=== PATIENT | female | born 1995 | race Two or more races ===

== ENCOUNTER 2023-01-14 14:01 | Outpatient (OUT) | payer OTHER, SELFPAY ==
--- NOTE | 2023-01-14 14:06 | US_ITS ---
[address] [address] Patient Name: PRINCESS CANTU MRN: [id number] date: 1995 Sex: F Assigned Patient Location: US Current Patient Location: US Accession/Order Number: [id number] Exam Date: 01/14/2023 14:06 Report Date: 01/14/2023 17:08 At the request of: LISA ZIMMERMAN Procedure: US OB transvaginal EXAMINATION: US OB transvaginal HISTORY: MISSED PERIOD COMPARISON: No relevant comparison available. FINDINGS: Payan intrauterine gestation Gestational sac: 2.68 cm, 7 weeks 3 days CRL: 1.7 cm, 8 weeks 2 days Yolk sac: 4.3 mm Heart rate: 171 BPM The uterus is normal, anteverted, anteflexed The ovaries are normal in appearance Cervix: Closed, 3.5 cm Clinical age: 8 weeks 3 days Clinical RAS: 08/23/2023 Ultrasound age: 8 weeks 2 days Ultrasound RAS: 09/03/2023 IMPRESSION: Viable payan intrauterine gestation measuring 8 weeks 2 days Electronically authenticated by: HAYLIE RIVER Date: 01/14/2023 17:08
== END 2023-01-14 14:02 | disposition home or self-care (01) ==
LOC: US 14:03
PROVIDERS: Visit Provider Obstetrics & Gynecology
DX: O26.91 Pregnancy related conditions, unspecified, first trimester (principal); Z3A.08 8 weeks gestation of pregnancy
CPT/HCPCS: 76817

== ENCOUNTER 2023-01-28 09:15 | Outpatient (OUT) | payer OTHER, SELFPAY ==
[2023-01-28 09:53] LABS: Basophils Percent Auto 0.6 % (0.2-2.0); Eosinophils Absolute Auto 0.2 10^3/uL (0.0-0.7); Eosinophils Percent Auto 2.1 % (0.9-7.0); Hematocrit 38.4 % (36.0-48.0); Hemoglobin 12.8 g/dL (12.0-16.0); Immature Granulocytes Abs Auto 0.02 10^3/uL (0.00-0.03); Immature Granulocytes Pct Auto 0.3 % (0.0-0.5); Lymphocytes Absolute Auto 1.6 10^3/uL (1.2-3.8); Lymphocytes Percent Auto 21.7 % (20.5-60.0); Mean Corpuscular HGB Conc 33.3 g/dL (29.9-35.2); Mean Corpuscular Hemoglobin 30.3 pg (26.7-34.0); Mean Corpuscular Volume 90.8 fL (81.0-99.0); Mean Platelet Volume 9.1 fL (9.5-13.5); Monocytes Absolute Auto 0.4 10^3/uL (0.3-0.8); Monocytes Percent Auto 5.9 % (1.7-12.0); Neutrophils Percent Auto 69.4 % (43.0-75.0); Platelet Count 260 10^3/uL (150-450); Red Blood Count 4.23 10^6/uL (4.20-5.40); Red Cell Distribution Width 12.1 % (11.0-15.0); White Blood Count 7.1 10^3/uL (4.0-11.0)
[2023-01-28 10:58] LABS: Thyroid Stimulating Hormone 2.378 uIU/mL (0.358-3.740)
[2023-01-28 11:43] LABS: Estimated Average Glucose 94 mg/dL; Glycohemoglobin A1C 4.9 % (4.5-6.2)
[2023-01-29 06:10] LABS: HBsAg Screen Negative (Negative); HCV Ab Non Reactive (Non Reactive); HIV Ab/p24 Ag Screen Non Reactive (Non Reactive)
[2023-01-29 12:09] LABS: Rapid Plasma Reagin, Quant Non Reactive (NonRea<1:1); Rubella Antibodies, IgG 0.96 index (Immune >0.99)
== END 2023-01-28 09:16 | disposition home or self-care (01) ==
LOC: LAB 09:17
PROVIDERS: Visit Provider Obstetrics & Gynecology
DX: Z34.81 Encounter for supervision of other normal pregnancy, first trimester (principal); N91.2 Amenorrhea, unspecified
CPT/HCPCS: 36415; 83036; 84443; 85025; 86592; 86706; 86762; 86803; 86850; 86900; 86901; 87086; 87389

== ENCOUNTER 2023-03-10 10:33 | Outpatient (REF) | payer OTHER, SELFPAY ==
[2023-03-15 12:08] LABS: Age Gdln ACOG Testing Note (.); IGP, rfx Aptima HPV ASCU Note (.)
== END 2023-03-10 10:34 | disposition home or self-care (01) ==
LOC: LAB 10:33
PROVIDERS: Visit Provider Obstetrics & Gynecology
DX: Z12.4 Encounter for screening for malignant neoplasm of cervix (principal)
CPT/HCPCS: G0145

== ENCOUNTER 2023-03-23 16:53 | Outpatient (OUT) | payer OTHER, SELFPAY ==
[2023-03-26 16:09] LABS: Gest. Age on Collection Date 18.1 weeks (.); Gestat. Age Based On Ultrasound (.); Insulin Dep Diabetes No (.); Maternal Age At EDD 29.8 yr (.); OSBR Risk 1 IN See interpretation. (.); Results Report (.)
== END 2023-03-23 16:54 | disposition home or self-care (01) ==
PROVIDERS: Visit Provider Obstetrics & Gynecology
DX: Z34.92 Encounter for supervision of normal pregnancy, unspecified, second trimester (principal)
CPT/HCPCS: 36415; 82105

== ENCOUNTER 2023-04-06 19:40 | Outpatient (OUT) | payer OTHER, SELFPAY ==
--- NOTE | 2023-04-06 19:54 | US_ITS ---
[address] [address] Patient Name: PRINCESS CANTU MRN: [id number] date: 1995 Sex: F Assigned Patient Location: US Current Patient Location: Accession/Order Number: [id number] Exam Date: 04/06/2023 20:36 Report Date: 04/07/2023 15:19 At the request of: LISA ZIMMERMAN Procedure: US OB anatomy EXAMINATION: US OB anatomy HISTORY: SECOND TRIMESTER Z34.92 COMPARISON: No relevant comparison available. TECHNIQUE: Transabdominal sonographic examination was performed for obstetrical and evaluation. FINDINGS: Number: 1 Heart Rate: 147.5 bpm H.B. /min Amniotic Fluid Volume: Subjectively normal Placental Location: Posterior fundal; lower margin 6.4 cm from os. Cervix Length: 3.2 cm, closed. ANATOMY: Normal Structures -cerebellum, cisterna magna, lateral cerebral ventricles, orbits, midline falx, hard palate, four-chamber heart,, stomach, bladder, umbilical cord insertion into abdomen, three-vessel cord, right upper extremity, left upper extremity, right lower extremity, left lower extremity. SUBOPTIMALLY SEEN: Cardiac outflow tracts, kidneys, spine ABNORMALITIES: Choroid plexus cysts, 7 mm. BIOMETRY: BPD: 4.6 cm 19 weeks 5 days HC: 17.6 cm 20 weeks 1 days AC: 15.2 cm 20 weeks 3 days FL: 3.1 cm 19 weeks 5 days EFW:332.9 grams; 44% FL/AC: 20.6 FL/BPD: 68.8 HC/AC: 1.2 GESTATIONAL AGE: Age by EDC: 20 weeks 1 days RAS by EDC: 08/23/2023 Age by current US: 20 weeks 0 days RAS by current US: 08/24/2023 US/US OB anatomy IMPRESSION: 1. Single live intrauterine with growth detailed above. 2. Examination is slightly limited due to position. 3. Suboptimal visualization of the cardiac outflow tracts, kidneys, and spine. 4. Cord plexus cysts, 7 mm. Follow-up recommended. Electronically authenticated by: AMERICA DRAPER Date: 04/07/2023 15:19
--- NOTE | 2023-04-06 19:55 | US_ITS ---
[address] [address] Patient Name: PRINCESS CANTU MRN: [id number] date: 1995 Sex: F Assigned Patient Location: US Current Patient Location: US Accession/Order Number: [id number] Exam Date: 04/06/2023 20:36 Report Date: 04/07/2023 15:20 At the request of: LISA ZIMMERMAN Procedure: US OB transvaginal EXAMINATION: US OB transvaginal HISTORY: SECOND TRIMESTER Z34.92 COMPARISON: Ultrasound OB anatomy 04/06/2023 US/US OB transvaginal IMPRESSION: Please see ultrasound OB anatomy 04/06/2023 report. Electronically authenticated by: AMERICA DRAPER Date: 04/07/2023 15:20
== END 2023-04-06 19:41 | disposition home or self-care (01) ==
PROVIDERS: Visit Provider Obstetrics & Gynecology
DX: Z34.92 Encounter for supervision of normal pregnancy, unspecified, second trimester (principal)
CPT/HCPCS: 76805; 76817

== ENCOUNTER 2023-05-03 18:46 | Outpatient (OUT) | payer OTHER, SELFPAY ==
--- NOTE | 2023-05-03 | US_ITS ---
[address] [address] Patient Name: PRINCESS CANTU MRN: [id number] date: 1995 Sex: F Assigned Patient Location: US Current Patient Location: Accession/Order Number: [id number] Exam Date: 05/03/2023 19:00 Report Date: 05/04/2023 07:10 At the request of: LISA ZIMMERMAN Procedure: US OB follow up EXAMINATION: US OB follow up HISTORY: ENCOUNTER FOR FOLLOW UP ANATOMY Z 36.2 COMPARISON: 04/06/2023 FINDINGS: Heart Rate: 149.2 bpm Amniotic Fluid Volume: Subjectively normal Number: 1.0 Position: Breech presentation, head transverse maternal right Normal anatomy: RVOT, LVOT, kidneys Abnormal anatomy: 6.2 x 5.5 mm choroid plexus cyst Nonvisualization: spine secondary to positioning GESTATIONAL AGE: Age by EDC: 24 weeks 0 days RAS by EDC: 08/23/2023 US/US OB follow up IMPRESSION: 6.2 mm choroid plexus cyst Electronically authenticated by: HAYLIE RIVER Date: 05/04/2023 07:10
== END 2023-05-03 18:47 | disposition home or self-care (01) ==
PROVIDERS: Visit Provider Obstetrics & Gynecology
DX: Z36.2 Encounter for other antenatal screening follow-up (principal); O35.03X0 Maternal care for (suspected) central nervous system malformation or damage in fetus, choroid plexus cysts, not applicable or unspecified; Z3A.24 24 weeks gestation of pregnancy
CPT/HCPCS: 76816

== ENCOUNTER 2023-05-17 17:37 | Observation (INO) | payer OTHER, SELFPAY ==
[2023-05-17 18:04] VITALS: BP 143/74; PULSE 76
[2023-05-17 19:21] LABS: Bilirubin Urine NEGATIVE (NEGATIVE); Blood Urine NEGATIVE (NEGATIVE); Clarity Urine CLEAR (CLEAR); Color Urine YELLOW (YELLOW); Glucose Urine UA NEGATIVE (NEGATIVE); Ketones Urine NEGATIVE (NEGATIVE); Leukocyte Esterase Urine NEGATIVE (NEGATIVE); Nitrite Urine NEGATIVE (NEGATIVE); Protein Urine TRACE mg/dL (NEG/TRACE); Specific Gravity Urine >=1.030 (1.005-1.025)
[2023-05-17 19:32] LABS: Urine Microscopic Indicated NO
== END 2023-05-17 18:52 | disposition home or self-care (01) ==
PROVIDERS: Admitting Provider Obstetrics & Gynecology; Visit Provider Obstetrics & Gynecology
DX: O26.892 Other specified pregnancy related conditions, second trimester (principal); R10.31 Right lower quadrant pain; Z3A.26 26 weeks gestation of pregnancy
CPT/HCPCS: 59025; 81003; G0378; G0379

== ENCOUNTER 2023-05-22 08:25 | Outpatient (OUT) | payer OTHER, SELFPAY ==
[2023-05-22 09:37] LABS: Basophils Percent Auto 0.3 % (0.2-2.0); Eosinophils Absolute Auto 0.1 10^3/uL (0.0-0.7); Eosinophils Percent Auto 1.2 % (0.9-7.0); Hematocrit 33.2 % (36.0-48.0); Hemoglobin 10.7 g/dL (12.0-16.0); Immature Granulocytes Abs Auto 0.05 10^3/uL (0.00-0.03); Immature Granulocytes Pct Auto 0.6 % (0.0-0.5); Lymphocytes Absolute Auto 1.3 10^3/uL (1.2-3.8); Lymphocytes Percent Auto 14.9 % (20.5-60.0); Mean Corpuscular HGB Conc 32.2 g/dL (29.9-35.2); Mean Corpuscular Hemoglobin 30.2 pg (26.7-34.0); Mean Corpuscular Volume 93.8 fL (81.0-99.0); Mean Platelet Volume 9.2 fL (9.5-13.5); Monocytes Absolute Auto 0.6 10^3/uL (0.3-0.8); Monocytes Percent Auto 6.5 % (1.7-12.0); Neutrophils Absolute Auto 6.9 10^3/uL (1.4-6.5); Neutrophils Percent Auto 76.5 % (43.0-75.0); Platelet Count 250 10^3/uL (150-450); Red Blood Count 3.54 10^6/uL (4.20-5.40); Red Cell Distribution Width 12.6 % (11.0-15.0)
[2023-05-22 10:01] LABS: Glucose 1 Hour 94 mg/dL
== END 2023-05-22 08:26 | disposition home or self-care (01) ==
LOC: LAB 08:28
PROVIDERS: Visit Provider Obstetrics & Gynecology
DX: Z34.92 Encounter for supervision of normal pregnancy, unspecified, second trimester (principal)
CPT/HCPCS: 36415; 82950; 85025

== ENCOUNTER 2023-05-24 17:41 | Outpatient (OUT) | payer OTHER, SELFPAY ==
--- NOTE | 2023-05-24 | US_ITS ---
[address] [address] Patient Name: PRINCESS CANTU MRN: [id number] date: 1995 Sex: F Assigned Patient Location: US Current Patient Location: Accession/Order Number: [id number] Exam Date: 05/24/2023 18:20 Report Date: 05/25/2023 16:53 At the request of: LISA ZIMMERMAN Procedure: US OB follow up EXAMINATION: US OB follow up HISTORY: Encounter for follow up of anatomy, Z36.2 COMPARISON: No relevant comparison available. FINDINGS: position: Cephalic presentation, longitudinal lie Heart rate: 140 bpm Other: Stable 6 mm choroid plexus cyst. Normal appearance of the spine US/US OB follow up IMPRESSION: Stable 6 mm choroid plexus cyst Electronically authenticated by: HAYLIE RIVER Date: 05/25/2023 16:53
== END 2023-05-24 17:42 | disposition home or self-care (01) ==
LOC: US 17:41
PROVIDERS: Visit Provider Obstetrics & Gynecology
DX: Z36.2 Encounter for other antenatal screening follow-up (principal); O35.03X1 Maternal care for (suspected) central nervous system malformation or damage in fetus, choroid plexus cysts, fetus 1
CPT/HCPCS: 76816

== ENCOUNTER 2023-06-17 08:02 | Outpatient (OUT) | payer OTHER, SELFPAY ==
--- NOTE | 2023-06-17 08:05 | US_ITS ---
[address] [address] Patient Name: PRINCESS CANTU MRN: [id number] date: 1995 Sex: F Assigned Patient Location: US Current Patient Location: US Accession/Order Number: [id number] Exam Date: 06/17/2023 08:05 Report Date: 06/17/2023 15:10 At the request of: LISA ZIMMERMAN Procedure: US OB growth EXAMINATION: US OB growth HISTORY: LGA, FOLLOW UP CHOROID PLEXUS CYST COMPARISON: Ultrasound OB anatomy 04/06/2023 FINDINGS: Heart Rate: 153.0 bpm Number: 1.0 Position: BREECH Amniotic Fluid Volume: 16.7 cm Maximum Vertical Pocket: 4.7 cm BIOMETRY: BPD: 7.3 cm cm; 29 weeks 1 days; 9% HC: 28.4 cmcm; 31 weeks 1 days ; 33% AC: 26.2 cm cm; 30 weeks 2 days; 43% FL: 5.8 cm cm; 30 weeks 2 days; 33% EFW: 1551.7 grams; 34% FL/AC: 22.1 FL/BPD: 79.8 HC/AC: 1.1 GESTATIONAL AGE: Age by EDC: 30 weeks 3 days RAS by EDC: 08/23/2023 Age by US: 30 weeks 2 days RAS by US: 08/24/2023 US/US OB growth IMPRESSION: 1. Single live intrauterine with growth detailed above. Electronically authenticated by: AMERICA DRAPER Date: 06/17/2023 15:10
== END 2023-06-17 08:03 | disposition home or self-care (01) ==
LOC: US 08:02
PROVIDERS: Visit Provider Obstetrics & Gynecology
DX: O36.63X0 Maternal care for excessive fetal growth, third trimester, not applicable or unspecified (principal); Q07.8 Other specified congenital malformations of nervous system; Z3A.30 30 weeks gestation of pregnancy
CPT/HCPCS: 76816

== ENCOUNTER 2023-07-10 14:18 | Outpatient (OUT) | payer OTHER, SELFPAY ==
--- OUTSIDE RECORDS SUMMARY | 2023-07-10 14:21 | XMS_ITS | CCD ---
Author Name Unknown Address [address] [place] [address] Organization [facility] Care Team Providers Care Plush Weaver Name Role Phone Uriarte, Koffi A Unavailable Unavailabl e Uriarte, Koffi A Unavailable Unavailabl e Uriarte, Koffi A Unavailable Unavailabl e ZAC ANDERSON Primary Care Unavailable TU CURRAN Attending Unavailab le Uriarte, Koffi Unavailable Unavailable Doe Andrade Unavailable Unavailable Theo Smith Unavailable Unavailab le Uriarte, Koffi A Unavailable Unavailabl e Uriarte, Koffi Primary Care Provider SPIKE GARCIA Referring Unavailable URIARTE, KOFFI Primary Care Unavailable SPIKE GARCIA Referring Unavailable URIARTE, KOFFI Primary Care Unavailable Theo Smith Unavailable Unavailable Opaskar, Nedra Unavailable Unavailable Uriarte, Koffi A Unavailable UnavailTheo Pickett Unavailable Unavailable Zac Anderson Primary Care Provider [phone] Uriarte, Koffi A Unavailable Unavailable Unavailable Unavailable Unavailable Unavailable Unavailable Koffi Uriarte MD Primary Care Provider Unavailable Unavailable Koffi Uriarte MD Primary Care Provider Milagro Son Primary Care Physician Unavail able Dane Hassan Attending Unavailable Dane Hassan Admitting Unavailable BRENDAN BLANKENSHIP Attending Unavailable URIARTE, KOFFI A Primary Care Unavailabl GEORGIA Mckinley Attending Unavailable URIARTE, KOFFI A Primary Care Unavailabl e KAVITA SWEET Referring Unavailable CHAPITO, KOFFI Rosas Primary Care Unavailabl e BRENDAN BLANKENSHIP Attending Unavailable CHAPITO, KOFFI Rosas Primary Care Unavailabl e Unavailable Unavailable ELSIE ., DR GNOZALEZ Admitting Unavailable ELSIE ., DR GONZALEZ Attending Unavailable ELSIE ., DR GONZALEZ Consulting Unavailable ELSIE ., DR GONZALEZ Admitting Unavailable ELSIE ., DR GONZALEZ Attending Unavailable [place], DR HAYLIE Garcia Consulting Unavailable ELSIE ., DR GONZALEZ Consulting Talon Uriarte, Dr. Koffi Rosas Primary Care Dario Uriarte, Dr. Koffi Rosas Attending Dario Uriarte, Dr. Koffi Rosas Referring Koffi Oquendo MD Primary Care Provider Koffi Uriarte MD Unavailable NEDRA CALDERON Attending Unavailable KOFFI URIARTE Primary [facility] UnavailSHIMA Earl Attending Unavailable SHIMA RODAS Attending SHIMA Orantes Attending Unavailable Allergies Allergy Classification Reported Allergen(s) Allergy Type Date of Onset Reaction(s) Facility (1 source) No Known Medication Allergies; Translations: [No Known Medication Allergies] Propensity to adverse reactions (disorder) [facility] Repository Medications Current Medications Medication Drug Class(es) Dates Sig (Normalized) Sig (Original) {21 (Ethinyl Estradiol 0.02 MG / Levonorgestrel 0.1 MG Oral Tablet) / 7 (Inert Ingredients 1 MG Oral Tablet) } Pack [Orsythia 28 Day] (9 sources) Progestin, Estrogen, Progestin-containin g Intrauterine Device Start: 06-05-2019 Orsythia 100 mcg-20 mcg oral tablet 1 tab(s), Oral, Daily, 3 EA, Refill(s) 3, [id number] Start Date: 06/05/19 Status: Ordered Start: 10-12-2015 take 1 tablet by jolie th once daily Orsythia 0.1-20 MG-MCG Oral Tablet TAKE 1 TABLET DAILY. Quantity: 1 Refills: 3 Koffi Uriarte MD Start : 12-Oct-2015 Active 28 Tablet Pack take 0.1-20 tablets by mouth once levonorgestrel-ethinyl estradiol (LUTERA) 0.1-20 MG-MCG per tablet Take 1 tablet by mouth daily. 0 Active levothyroxine sodium 0.025 mg oral tablet (1 source) l-Thyroxine Start: 12-07-2022 End: 04-30-2023 take 1 tablet by mouth once daily before mealtime levothyroxine (Synthroid, Levoxyl) 25 mcg tablet Take 1 tablet (25 mcg) by mouth once daily in the morning. Take before meals. 0 12/07/2022 04/30/2023 Discontinued (Therapy completed) lisinopril 10 mg oral tablet (19 sources) Angiotensin Converting Enzyme Inhibitor Start: 03-09-2023 End: 04-30-2023 take 1 tablet by mouth once daily lisinopril 10 mg tablet Indications: Primary hypertension TAKE 1 TABLET BY MOUTH EVERY DAY 30 tablet 6 03/09/2023 04/30/2023 Discontinued (Entered in Error) Start: 10-14-2020 take 1 tablet by jolie once daily Lisinopril 10 MG Oral Tablet TAKE 1 TABLET DAILY. Quantity: 90 Refills: 3 Ordered: 02-Jan-2022 Koffi Uriarte MD Start : 14-Oct-2020 Active Start: 10-14-2020 lisinopril (ZE STRIL, PRINIVIL) 10 mg tablet Take by mouth q 24 HR. 0 10/14/2020 Active Comment on above: Take by mouth q 24 H R. 24 hr metFORMIN hydrochloride 500 mg extended release oral tablet (1 source) Biguanide Start: 11-17-19 End: 04-30-20 take 1 tablet by mouth once daily at mealtime metFORMIN XR 500 mg 24 hr tablet Take 1 tablet (500 mg) by mouth once daily in the evening. Take with meals. 0 11/16/2022 04/30/2023 Discontinued (Therapy completed) naproxen 500 mg oral tablet (1 source) Nonsteroidal Anti-inflammatory Drug Start: 06-05-20 take 1 tablet by mouth twice daily Naprosyn 500 mg Tab 500 mg = 1 tab(s), Oral, BID, # 120 tab(s), Refills(s) 0, Pharmacy: [id number] Start Date: 06/05/19 Status: Ordered ondansetron 4 mg oral tablet (1 source) Serotonin-3 Receptor Antagonist Start: 07-26-20 23 take 2 tablets by mouth twice daily as needed for nausea ondansetron (Zofran) 4 mg tablet Take 2 tablets (8 mg) by mouth 2 times a day as needed for nausea. 0 02/10/2023 Active sodium chloride flush 0.9 % injection 3 mL (1 source) Start: 04-18-20 20 sodium chloride flush 0.9 % injection 3 mL Completed/Discontinued Medications Medication Drug Class(es) Dates Sig (Normalized) Sig (Original) busPIRone hydrochloride 10 mg oral tablet (3 sources) Start: 05-28-2020 take 1 tablet by mouth three times daily as needed busPIRone HCl - 10 MG Oral Tablet TAKE 1 TABLET 3 times daily PRN Quantity: 60 Refills: 1 Koffi Uriarte MD Start : 28-May-2020 Active gadoteridol (PROHANCE) injection 15 mL (1 source) Start: 05-09-2020 End: 05-09-2020 gadoteridol (PROHANCE) injection 15 mL lamoTRIgine 100 mg oral tablet (20 sources) Mood Stabilizer, Anti-epileptic Agent Start: 08-14-2020 take 1 tablet by mouth twice daily lamoTRIgine 100 MG Oral Tablet TAKE 1 TABLET BY MOUTH TWICE DAILY. Quantity: 180 Refills: 3 Ordered: 24-Dec-2021 Nedra Calderon MD Start : 14-Aug-2020 Active lamoTRIgine (NGUYEN ICTAL) 25 mg tablet melatonin 10 mg oral tablet (8 sources) Start: 04-25-2020 take 1 tablet by mouth at bedtime Melatonin 10 MG Oral Tablet TAKE 1 TABLET Bedtime Quantity: 30 Refills: 3 Ordered: 25-Apr-2020 Doe Andrade DO Start : 25-Apr-2020 Active Patient requesting compounded melatonin metroNIDAZOLE 500 mg oral tablet (10 sources) Nitroimidazole Antimicrobial Start: 09-09-2021 End: 02-03-2022 take 1 tablet by mouth twice daily metroNIDAZOLE (FLAGYL) 500 mg tablet Indications: Acute vaginitis Take 1 tablet by mouth twice daily. for vaginosis. Do not drink alcohol while taking this medication 14 tablet 0 02/03/2022 Active Start: 05-20-2021 metroNIDAZOLE 0.75 % Vaginal Gel INSERT 1 APPLICATORFUL INTRAVAGINALLY AT BEDTIME NIGHTLY. Quantity: 1 Refills: 0 Ordered: 20-May-2021 Koffi Uriarte MD Start : 20-May-2021 Active Start: 06-09-2019 End: 06-14-2019 MetroGel-Vaginal 0.75% gel w ith applicator 1 bruce, Vaginal, BID, 70 gram, Refill(s) [id number] Start Date: 06/09/19 Stop Date: 06/14/19 Status: Ordered Comment on above: Take 1 tablet by jolie twice daily. for vaginosis. Do not drink alcohol while taking this medication Orsythia 0.1-20 MG-MCG Oral Tablet (3 sources) Start: 10-12-2015 take 1 tablet by mouth once daily Orsythia 0.1-20 MG-MCG Oral Tablet TAKE 1 TABLET DAILY. Quantity: 1 Refills: 3 Ordered: 25-May-2019 Koffi Uriarte MD Start : 12-Oct-2015 Active sertraline 50 mg oral tablet (4 sources) Serotonin Reuptake Inhibitor Start: 05-28-2020 take 1 tablet by mouth once daily Sertraline HCl - 50 MG Oral Tablet TAKE 1 TABLET DAILY. 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] Onset: 10-02-2022 10-02-2022 Chronic Anxiety disorders (20 sources) Anxiety; Translations: [Anxiety state, unspecified] Onset: 10-02-2022 10-02-2022 Chronic Contraceptive and procreative management (7 sources) Contraception ; Translations: [Encounter for surveillance of contraceptives, unspecified] Onset: 07-02-2015 07-02-2015 Episodic Epilepsy; convulsions (1 source) Idiopathic generalized epilepsy; Translations: [Nonintractable generalized idiopathic epilepsy without status epilepticus (HCC)] Chronic Epilepsy; convulsions (20 sources) Seizure; Translations: [Other convulsions] Onset: 10-02-2022 04-30-2023 Episodic Comment on above: seeing Dr. Calderon. lamotrigine; Essential hypertension (17 sources) Benign essential hypertension; Translations: [Benign essential hypertension] Onset: 10-02-2022 10-02-2022 Chronic Hemorrhage during ; abruptio placenta; placenta previa (2 sources) Antepartum hemorrhage; Translations: [Hemorrhage in early , unspecified] Onset: 04-16-2022 Episodic Immunizations and screening for infectious disease (2 sources) Encounter for screening for infections with a predominantly sexual mode of transmission; Translations: [Screening examination for sexually transmitted disease] Onset: 07-04-2021 Episodic Other ear and sense organ disorders (20 sources) Conductive hearing loss, bilateral; Translations: [Conductive hearing loss, bilateral] Onset: 10-02-2022 10-02-2022 Chronic Other nutritional; endocrine; and metabolic disorders (7 sources) Obesity; Translations: [Obesity, unspecified] Onset: 03-28-2023 03-28-2023 Chronic Other nutritional; endocrine; and metabolic disorders (3 sources) Obese class I; Translations: [Obesity, unspecified] Onset: 07-04-2021 07-04-2021 Chronic Other upper respiratory disease (20 sources) Allergic rhinitis; Translations: [Allergic rhinitis, cause unspecified] Onset: 10-02-2022 10-02-2022 Chronic Other upper respiratory infections (20 sources) Chronic sinusitis; Translations: [Chronic pansinusitis] Onset: 10-02-2022 10-02-2022 Chronic Otitis media and related conditions (5 sources) Chronic otitis media; Translations: [Bilateral chronic otitis media] Chronic Unclassified (1 source) Unknown / UNK(Unknown) Onset: 05-04-2017 Unclassified (3 sources) APPOINTMENT CANCELLED Onset: 08-09-2017 08-09-2017 Past or Other Problems Problem Classification Problem Date Documented Da te Episodic/Chronic Bacterial infection; unspecified site (1 source) Chlamydial infection, unspecified; Translations: [Chlamydial infection] Onset: 07-04-2021 Episodic Inflammatory diseases of female pelvic organs (16 sources) Bacterial vaginosis; Translations: [Vaginitis and vulvovaginitis, unspecified] Onset: 07-04-2021 Episodic Nonspecific chest pain (20 sources) Chest pain; Translations: [Chest pain, unspecified] Onset: 10-02-2022 10-02-2022 Episodic Nutritional deficiencies (20 sources) Cobalamin deficiency; Translations: [Other B-complex deficiencies] Onset: 10-02-2022 10-02-2022 Episodic Other circulatory disease (20 sources) Feeling of lump in throat; Translations: [Gastrointestinal malfunction arising from mental factors] Onset: 10-02-2022 10-02-2022 Episodic Other circulatory disease (20 sources) Elevated blood-pressure reading without diagnosis of hypertension; Translations: [Elevated blood pressure reading without diagnosis of hypertension] Onset: 10-02-2022 10-02-2022 Episodic Other female genital disorders (14 sources) Vaginal discharge; Translations: [Leukorrhea, not specified as infective] Onset: 10-02-2022 10-02-2022 Episodic Other nutritional; endocrine; and metabolic disorders (17 sources) Abnormal weight gain; Translations: [Abnormal weight gain] Onset: 10-02-2022 10-02-2022 Episodic Other skin disorders (20 sources) Loss of hair; Translations: [Alopecia, unspecified] Onset: 10-02-2022 10-02-2022 Episodic Otitis media and related conditions (17 sources) Chronic otitis media; Translations: [Unspecified otitis media] Onset: 10-02-2022 10-02-2022 Episodic Residual codes; unclassified (20 sources) Insomnia; Translations: [Insomnia, unspecified] Onset: 10-02-2022 10-02-2022 Episodic Unclassified (1 source) R07.9 28296/8 Onset: 05-04-2017 Unclassified (5 sources) Patient encounter status; Translations: [Encounter for audiology evaluation] NEGATED: Highlighted row has not occurred!Residual codes; unclassified (17 sources) Disease Episodic Results Test Name Value Interpretation Reference Range Facility DHEA SERUMon 11-20-2022 Dehydroepiandrosterone (DHEA) 656 ng/dL Normal 31-701 [facility] Comment on above: Performed By: #### D LAMAR. #### [facility] [address] [place] [address] Dr. Vish Brown ANTI-MULLERIAN HORMONEon Anti-Mullerian Hormone (AMH) 4.47 ng/mL Normal [facility] Comment on above: Result Comment: For assays employing antibodies, the possibility exists for interference by heterophile antibodies in the samples.1 1.Favio Campos Interferences in Immunoassays - still a threat. Clin. Chem. 2000; 46: 5740-5538. This test was developed and its performance characteristics determined by [employer]. It has not been cleared or approved by the Food and Drug Administration. Reference Range: Females 26 - 30y: 1.03 - 11.10 Median 4.20 AMH concentrations of >= 1.06 ng/mL is correlated with a better response to ovarian stimulation, produced more retrievable oocytes and higher odds of live according to Gabi et al. Fertility and Sterility. 2010: 94:7176-2963. The current AMH test method correlates with the study method with a slope of 0.94. Females at risk of ovarian hyperstimulation syndrome or polycystic ovarian syndrome (PCOS) may exhibit elevated serum AMH concentrations. AMH levels from PCOS patients may be 2 to 5 fold higher than age-appropriate reference interval values. Granulosa cell tumors of the ovary may secrete AMH along with other tumor markers. Elevated AMH is not specific for malignancy, and the assay should not be used exclusively to diagnose or exclude an AMH-secreting ovarian tumor. Performed By: #### L BRUNA #### [facility] [address] [place] [address] Dr. Vish Brown DHEA-SULFATEon 11-17-2022 DHEA-Sulfate 449.0 ug/dL Critically high 84.8-378.0 [facility] Comment on above: Performed By: #### L [facility] #### [facility] [address] [place] [address] Dr. Vish Brown ESTRADIOLon 11-17-2022 Estradiol 34.3 pg/mL Normal [facility] Comment on above: Result Comment: Adul t Female: Follicular phase 12.5 - 166.0 Ovulation phase 85.8 - 498.0 Luteal phase 43.8 - 211.0 Postmenopausal <6.0 - 54.7 1st trimester 215.0 - >4300.0 Ele ECLIA methodology Performed By: #### E CHLOE #### [facility] [address] [place] [address] Dr. Vish Brown FSHon 11-17-2022 FSH 6.1 mIU/mL Normal [facility] Comment on above: Result Comment: Adul t Female: Follicular phase 3.5 - 12.5 Ovulation phase 4.7 - 21.5 Luteal phase 1.7 - 7.7 Postmenopausal 25.8 - 134.8 Performed By: #### L [facility] #### [facility] [address] [place] [address] Dr. Vish Brown LUTEINIZING HORMONE (LH)on 0 11-17-2022 LH 4.5 mIU/mL Normal [facility] Comment on above: Result Comment: Adul t Female: Follicular phase 2.4 - 12.6 Ovulation phase 14.0 - 95.6 Luteal phase 1.0 - 11.4 Postmenopausal 7.7 - 58.5 Performed By: #### L BCL #### [facility] [address] [place] [address] Dr. Vish Brown PROGESTERONEon 11-17-2022 Progesterone 0.8 ng/mL Normal [facility] Comment on above: Result Comment: Foll icular phase 0.1 - 0.9 Luteal phase 1.8 - 23.9 Ovulation phase 0.1 - 12.0 First trimester 11.0 - 44.3 Second trimester 25.4 - 83.3 Third trimester 58.7 - 214.0 Postmenopausal 0.0 - 0.1 Performed By: #### P TASNEEM #### [facility] [address] [place] [address] Dr. Vish Brown CBC AUTO DIFFon 11-16-2022 BASO # 0.0 103/ul Normal 0.0-0.1 [facility] Comment on above: Performed By: #### L BCL #### [facility] [address] [place] [address] Dr. Vish Brown Basophils/100 WBC (Bld) 0.5 % Normal 0.2-2.0 [facility] Comment on above: Performed By: #### L BCLH #### [facility] [address] [place] [address] Dr. Vish Brown EO # 0.3 103/ul Normal 0.0-0.7 [facility] Comment on above: Performed By: #### L BCLH #### [facility] [address] [place] [address] Dr. Vish Brown Eosinophils/100 WBC (Bld) 4.0 % Normal 0.9-7.0 [facility] Comment on above: Performed By: #### L BCL #### [facility] [address] [place] [address] Dr. Vish Brown Erythrocyte distribution width (RBC) [Ratio] 12.0 % Normal 11.0-15.0 [facility] Comment on above: Performed By: #### L BCLH #### [facility] [address] [place] [address] Dr. Vish Brown Hematocrit (Bld) [Volume fraction] 39.1 % Normal 36.0-48.0 [facility] Comment on above: Performed By: #### L BCL #### [facility] [address] [place] [address] Dr. Vish Brown Hemoglobin (Bld) [Mass/Vol] 13.0 g/dL Normal 12.0-16.0 [facility] Comment on above: Performed By: #### L BCL #### [facility] [address] [place] [address] Dr. Vish Brown IG # 0.02 10e3/ul Normal 0.00-0.03 [facility] Comment on above: Performed By: #### L BCL #### [facility] [address] [place] [address] Dr. Vish Brown IG % 0.3 % Normal 0.0-0.5 [facility] Comment on above: Performed By: #### L BCLH #### [facility] [address] [place] [address] Dr. Vish Brown LYMPH # 2.5 103/ul Normal 1.2-3.8 [facility] Comment on above: Performed By: #### L BCLH #### [facility] [address] [place] [address] Dr. Vish Brown Lymphocytes/100 WBC (Bld) 32.4 % Normal 20.5-60.0 [facility] Comment on above: Performed By: #### L BCLH #### [facility] [address] [place] [address] Dr. Vish Brown MANUAL DIFF REQ NO Normal [facility] Comment on above: Performed By: #### L BCL #### [facility] [address] [place] [address] Dr. Vish Brown MCH (RBC) [Entitic mass] 29.9 pg Normal 26.7-34.0 [facility] Comment on above: Performed By: #### L BCLH #### [facility] [address] [place] [address] Dr. Vish Brown MCHC (RBC) [Mass/Vol] 33.2 g/dL Normal 29.9-35.2 [facility] Comment on above: Performed By: #### L BRUNAH #### [facility] [address] [place] [address] Dr. Vish Brown MCV (RBC) [Entitic vol] 89.9 fL Normal 81.0-99.0 [facility] Comment on above: Performed By: #### L BCL #### [facility] [address] [place] [address] Dr. Vish Brown MONO # 0.6 103/ul Normal 0.3-0.8 [facility] Comment on above: Performed By: #### L BCL #### [facility] [address] [place] [address] Dr. Vish Brown Monocytes/100 WBC (Bld) 7.4 % Normal 1.7-12.0 [facility] Comment on above: Performed By: #### L BCL #### [facility] [address] [place] [address] Dr. Vish Brown NEUT # 4.3 103/ul Normal 1.4-6.5 [facility] Comment on above: Performed By: #### L BCLH #### [facility] [address] [place] [address] Dr. Vish Brown Neutrophils/100 WBC (Bld) 55.4 % Normal 43.0-75.0 [facility] Comment on above: Performed By: #### L BCLH #### [facility] [address] [place] [address] Dr. Vish Brown Platelet mean volume (Bld) [Entitic vol] 9.0 fL Critically low 9.5-13.5 [facility] Comment on above: Performed By: #### L BCLH #### [facility] [address] [place] [address] Dr. Vish Brown PLT 277 103/ul Normal 150-450 [facility] Comment on above: Performed By: #### L BCLH #### [facility] [address] [place] [address] Dr. Vish Brown RBC 4.35 106/ul Normal 4.20-5.40 [facility] Comment on above: Performed By: #### L BCLH #### [facility] [address] [place] [address] Dr. Vish Brown WBC 7.7 103/ul Normal 4.0-11.0 [facility] Comment on above: Performed By: #### L BCLH #### [facility] [address] [place] [address] Dr. Vish Brown FREE T4on 11-16-2022 Free T4 [Mass/Vol] 1.08 ng/dL Normal 0.76-1.46 [facility] Comment on above: Performed By: #### F T4 #### [facility] [address] [place] [address] Dr. Vish Brown GLYCOHEMOGLOBIN A1Con 2022 ADA RECOMMENDATION SEE BELOW Normal [facility] Comment on above: Result Comment: ADA RECOMMENDED LIMIT 4.0 - 6.0 ADA THERAPEUTIC TARGET < 7.0 ACTION SUGGESTED > 7.0 Performed By: #### A 1C #### [facility] [address] [place] [address] Dr. Vish Brown Glucose [Mass/Vol] 94 mg/dL Normal [facility] Comment on above: Performed By: #### A 1C #### [facility] [address] [place] [address] Dr. Vish Brown HbA1c (Bld) [Mass fraction] 4.9 % Normal 4.5-6.2 [facility] Comment on above: Performed By: #### A 1C #### [facility] [address] [address] [address] Vish Brown PREG QUANT HCGon 11-16-2022 HCG QUANT <1 Normal [facility] Comment on above: Performed By: #### P REGQNT, TSH #### [facility] [address] [place] [address] Dr. Vish Brown HCG RANGE SEE BELOW Normal [facility] Comment on above: Result Comment: 5-50 0.2-1 WEEK 50-500 1-2 WEEKS 100-5,000 2-3 WEEKS 500-10,000 3-4 WEEKS 1,000-50,000 4-5 WEEKS 10,000-100,000 5-6 WEEKS 15,000-200,000 6-8 WEEKS 10,000-100,000 2-3 MONTHS Performed By: #### P REGQNT, TSH #### [facility] [address] [place] [address] Dr. Vish Brown TSHon 11-16-2022 TSH 2.030 uIU/mL Normal 0.358-3.740 [facility] Comment on above: Performed By: #### P REGQNT, TSH #### [facility] [address] [place] [address] Dr. Vish Brown HM 19-49 Yearson 07-31-2022 HM 19-49 Years Diagnoses/Problems Health Maintenance/Risks Encounter for preventive health examination (V70.0) (Z00.00) Assessed Benign essential hypertension (401.1) (I10) stable. Continue current meds Orders Benign essential hypertension Complete Blood Count; Status:Active; Requested for:31Jul2022; Perform:Lab Services - Lab To Draw (Blood Test); Due:29Oct2022;Ordered; For:Benign essential hypertension; Ordered By:Koffi Uirarte; Comprehensive Metabolic Panel; Status:Active; Requested for:31Jul2022; Perform:Lab Services - Lab To Draw (Blood Test); Due:29Oct2022;Ordered; For:Benign essential hypertension; Ordered By:Koffi Uriarte; Lipid Panel; Status:Active; Requested for:31Jul2022; Perform:Lab Services - Lab To Draw (Blood Test); Due:29Oct2022;Ordered; For:Benign essential hypertension; Ordered By:Koffi Uriaret; Provider Impressions follow up appt in 1 year or as needed in the interim Chief Complaint Annual Physical Examination Adult Risk ScreeningThere are no spiritual/cultural practices/values/needs that are important to know Initial Fall Risk Screening: PRINCESS has not fallen in the last 6 months. Her fall did not result in injury. PRINCESS does not have a fear of falling. She does not need assistance with sitting, standing or walking. Does not need assistance walking in her home. She does not need assistance in an unfamiliar setting. The patient is not using an assistive device. Living Will. Living Will: No living will on file. Patient Declined. Healthcare POA: No healthcare proxy on file. Patient Declined. Declaration of Mental Health Treatment: No mental health treatment on file. Patient Declined. Tobacco Screening: PRINCESS does not use tobacco. Has not used tobacco in the past 6 months. Has not tried to quit or thought about quitting tobacco. Domestic Violence Screen: Does not feel threatened or abused physically, emotionally or sexually. Do you feel UNSAFE? The patient feels safe in the home. Depression/Suicide Screening: During the past 2 weeks, the patient has not felt down, depressed or hopeless. During the past 2 weeks, the patient has not felt little interest or pleasure in doing things. She does not have a risk of suicide. She has not had thoughts of harming others. Single alcohol screening question: Patient Declined/Screening not indicated. Audit Screening Tool: 1. How often do you have a drink containing alcohol? 2-4 times a month Single substance abuse screening question: Patient Declined/Screening not indicated. Procedure or Sedation Areas: patient has not had alcohol, recreational drugs, or prescription drugs for non-medical reasons this morning. Nutrition Screening: In the past month, there was not a day when I or anyone in my family went hungry because there was not enough food. Patient Education: The patient or the person with them need(s) extra help because of problems with: seeing The patient is comfortable filling out medical forms. History of Present Illness The last health maintenance visit was 1 year(s) ago. there are no concerns today. The patient's health since the last visit is described as good. There are no interval changes in the patient's PMH, PSH, and current medications. There are no interval changes in the patient's social and family history. She does not have regular dental visits. She complains of vision problems. Vision care includes wearing reading glasses. She denies hearing loss. Immunizations status: up to date. Lifestyle: She consumes a diverse and healthy diet. She does not exercise regularly. She does not use tobacco. She consumes alcohol. She reports occasional alcohol use. Reproductive health: the patient is premenopausal. she reports normal menses. History: 0. Cervical cancer screening: cancer screening reviewed and current . patient has no history of an abnormal pap smear. Active Problems Problems Abnormal weight gain (783.1) (R63.5) Allergic rhinitis (477.9) (J30.9) Anxiety (300.00) (F41.9) Bacterial vaginosis (616.10,041.9) (N76.0,B96.89) Benign essential hypertension (401.1) (I10) Bilateral chronic otitis media (382.9) (H66.93) Chest pain (786.50) (R07.9) Chronic pansinusitis (473.8) (J32.4) Chronic sinusitis (473.9) (J32.9) Class 1 obesity with body mass index (BMI) of 32.0 to 32.9 in adult (278.00,V85.32) (E66.9,Z68.32) Conductive hearing loss, bilateral (389.06) (H90.0) Elevated BP without diagnosis of hypertension (796.2) (R03.0) Encounter for audiology evaluation (V72.19) (Z01.10) Globus sensation (784.99) (R09.89) Hair loss (704.00) (L65.9) Insomnia (780.52) (G47.00) Seizure (780.39) (R56.9) Tonsil stone (474.8) (J35.8) Vaginal discharge (623.5) (N89.8) Vitamin B12 deficiency (266.2) (E53.8) Surgical History Problems No history of surgery Family History Mother No pertinent family history Social History Problems Never smoker No illicit drug use Occasional alcohol (more content not included)... Normal [employer] Tobacco Screening.on 023 Adult depression screening assessment No [facility] [employer] Work Phone: Fall risk assessment a) No falls within the last year [facility] [employer] Work Phone: Tobacco use status CPHS b) No M [facility] [employer] Work Phone: B-HCG SerPl-aCncon HCG.beta subunit Qn m[IU]/mL Normal <5.0 [facility] Comment on above: Order Comment: Speci men Type: BLOOD SPECIMENOrdering Facility: [facility] Address: [address] [place], [place] [id number] Result Comment: Soledad kyle Performed By: #### G CCT #### [place] [address] BACTERIAL VAGINOSIS AMPLIFIC ATIONon 04-16-2022 Lactobacillus crispatus+gasseri+jense james + Gardnerella vaginalis + Atopobium vaginae rRNA HUMERA+probe Ql (Vag fld) Negative Normal Negative for bacterial vaginosis [facility] Comment on above: Order Comment: Speci men Type: SWAB [facility] Address: [address] [place] [address] Performed By: #### C VTV, BVAMP #### [facility] CLIA [id number] [address] [place] [address] OF ONI C. trachomatis+N. gonorrhoea e DNA HUMERA+probe Ql (Unsp spec)on 04-16-2022 C. trachomatis DNA HUMERA+probe Ql (Unsp spec) Negative Normal Negative for Chlamydia trachomatis by amplificaton [facility] Comment on above: Order Comment: Speci men Type: SWAB [facility] Address: [address] [place] [address] Performed By: #### C VTV, BVAMP #### [facility] CLIA [id number] [address] [place] [address] OF ONI N. gonorrhoeae DNA HUMERA+probe Ql (Unsp spec) Negative Normal Negative for Neisseria gonorrhoeae by amplification [facility] Comment on above: Order Comment: Speci men Type: SWAB [facility] Address: [address] [place], [place] [id number] Performed By: #### C VTV, BVAMP #### [facility] CLIA [id number] [address] [place] [address] [place] MITCH / TRICHOMONAS AMPLIF ICATIONon 04-16-2022 MITCH / TRICHOMONAS AMPLIFICATION MITCH SPECIES GROUP RNA: Negative for Mitch species MITCH GLABRATA RNA: Negative for Mitch glabrata TRICH VAG AMPLIFICATION RNA: Negative for Trichomonas vaginalis by amplification Normal [facility] Comment on above: Performed By: #### C VTV, BVAMP #### [facility] CLIA [id number] [address] [place] [address] [place] CNCOon 04-16-2022 CNCO Letter Text Letter Text Normal [facility] CNOVon 04-16-2022 CNOV Office Visit ([facility] ) PRINCESS CANTU ([id number]) 1995 F Date Time Provider Department 04/16/22 8:00 AM BRENDAN BLANKENSHIP [facility] During your visit today, we recorded the following information about you: Pulse Blood pressure Weight Height 77/minute 134/84 91.9 kg 1.727 m Last Period 03/19/22 Brendna Blankenship PA-C 04/16/2022 8:18 AM Signed Princess Rosas Alondra is a 26 year old year old female. Patient presents for vaginal discharge with slight odor and irritation x a few weeks. Intermittent. Denies any itching at this time. +New partner x 3 months, did not use condoms. Requests full STI screen. LMP 03/19/22. Smoker? No Last Pap? 07/02/20, NIL History of abnormal Paps? ASCUS in 2014 Patient's last menstrual period was 03/19/2022 (approximate). FAMILY HISTORY Problem Relation Age of Onset Heart Maternal Grandmother arrhythmia Cancer Maternal Grandfather lung Asthma Father Breast Cancer Paternal Grandmother None Mother Diabetes Mother Maternal nephew/ insulin dependent Ovarian cancer No Family History Uterine Cancer No Family History OB History T0 L0 SAB0 IAB0 Ectopic0 Multiple0 Live Births0 Comment: Menarche 10 PAST MEDICAL HISTORY Diagnosis Date ASCUS of cervix with negative high risk HPV 07/02/2015 Chlamydia 04/15/2021 Seizure (HCC) 2019 PAST SURGICAL HISTORY Procedure Laterality Date NONE Current Outpatient Medications Medication Sig metroNIDAZOLE (FLAGYL) 500 mg tablet Take 1 tablet by mouth twice daily. for vaginosis. Do not drink alcohol while taking this medication lamoTRIgine (LAMICTAL) 25 mg tablet lisinopril (ZESTRIL, PRINIVIL) 10 mg tablet Take by mouth q 24 HR. No current facility-administered medications for this visit. 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 I, Brendan Blankenship, have reviewed this information as documented for accuracy and performed all elements of history taking, and edited the record as necessary. 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 NEURO: Awake, alert and oriented A/P: 26 year old y/o F here for vaginitis. 1. Vaginitis - Benign on exam 2. Screening examination for sexually transmitted disease - Accepts vaginal and serum screening - MITCH / TRICHOMONAS AMPLIFICATION - BACTERIAL VAGINOSIS AMPLIFICATION - GC/CHLAMYDIA DNA DET - SYPHILIS TOTAL W/REFLEX; Future - HIV 1 2 COMBO(AG/AB),WITH REFLEX TO DIFFERENTIATION; Future - HEP C AB IA W/CONF SCRN; Future - HEP B SURF AG SCRN; Future Brendan Blankenship PA-C Medical Decision Making: Problems: Low: Acute, uncomplicated illness or injury Data: Unique test(s) ordered: 3+ Risk: Low: Low risk from testing/treatment Medical Decision Making Level: 3 - Low Referring Provider: NO PCP [956] Allergies As of Date: 04/16/2022 (No Known Allergies) Date Reviewed: 04/16/2022 Reviewed by: Brendan Blankenship PA-C - Fully Assessed Reason for Visit: Vaginal Discharge [4161] Cmt: With slight odor Primary Visit Diagnosis:Acute vaginitis [N76.0] Other Visit Diagnosis:Screening examination for sexually transmitted disease [Z11.3] Order(s):MITCH / TRICHOMONAS AMPLIFICATION [SQCVTV] Order #: [id number]. #:[id number] BACTERIAL VAGINOSIS AMPLIFICATION [SQBVAMP] Order #: [id number]. #:[id number] GC/CHLAMYDIA DNA DET [SQGCCAMP] Order #: [id number]. #:[id number] SYPHILIS TOTAL W/REFLEX [SQSYPHTX] Order #: [id number] FUTURE HIV 1 2 COMBO(AG/AB),WITH REFLEX TO DIFFERENTIATION [SQHIV12] Order #: [id number] FUTURE HEP C AB IA W/CONF SCRN [XWVJJC2T] Order #: [id number] FUTURE HEP B SURF AG SCRN [SQHBSAG] Order #: [id number] FUTURE Prescriptions as of 04/16/2022 - lamoTRIgine (LAMICTAL) 25 mg tablet - lisinopril (ZESTRIL, PRINIVIL) 10 mg tablet Take by mouth q 24 HR. Problem List As Of Date 04/16/2022 Noted Resolved Contraceptive use [Z30.40] 07/02/2015 NO SHOW 08/09/2017 08/09/2017 APPOINTMENT CANCELLED 08/09/2017 Obesity, Class I, BMI 30-34.9 [E66.9] 07/04/2021 Medications Discontinued During This Encounter Prescriptions - metroNIDAZOLE (FLAGYL) 500 mg tablet (Discontinued) Take 1 tablet by mouth twice daily. for vaginosis. Do not drink alcohol while taking this medication Encounter Status:Closed by BRENDAN BLANKENSHIP on 04/16/22 Normal [facility] HBV surface Ab IA Ql (S)on 0 04-16-2022 HBV surface Ag Ql (S) Negative Normal Negative [facility] Comment on above: Order Comment: Speci men Type: BLOOD SPECIMENOrdering Facility: [facility] Address: [address] [place], [place] [address] Performed By: #### G CCT #### [place] [phone] HCV Ab Ser Qlon 04-16-2022 HCV Ab Ql (S) Negative Normal Negative [facility] Comment on above: Order Comment: Speci men Type: BLOOD SPECIMEN [facility] Address: [address] [place] [address] Result Comment: The result suggests no evidence of active infection with Hepatitis C virus. Should recent infection be suspected, repeat testing may be considered 4-6 weeks after this draw. Performed By: #### 1 [id number] #### [facility] CLIA [id number] [address] [place] [address] [place] HIV 1+2 Ab IA Qlon 2 HIV 1 and 2 Ab IA.rapid Nom Normal [facility] Comment on above: Order Comment: Speci men Type: BLOOD SPECIMENOrdering Facility: [facility] Address: [address] [place] [address] Result Comment: Test not indicated. Performed By: #### G CCT #### [place] [phone] HIV 1+2 Ab+HIV1 p24 Ag IA Ql Non-Reactive Normal Nonreactive [facility] Comment on above: Order Comment: Speci men Type: BLOOD SPECIMENOrdering Facility: [facility] Address: [address] [place], [place] [address] Performed By: #### G CCT #### [place] [phone] HIVINT Normal [facility] Comment on above: Order Comment: Speci men Type: BLOOD SPECIMENOrdering Facility: [facility] Address: [address] [place] [address] Result Comment: No e vidence of HIV-1 or HIV-2 infection. Should recent infection be suspected, repeat testing may be considered 2-3 weeks after this draw. [place] Rev. Code 3701.243(E): This information has been disclosed to you from confidential records protected from disclosure by state law. ???You shall make no further disclosure of this information without the specific, written, and informed release of the individual to whom it pertains or as otherwise permitted by state law. A general authorization for the release of medical or other information is not sufficient for the purpose of the release of HIV test results or diagnoses. Performed By: #### G CCT #### [facility] [employer] [address] [place] [phone] Reagin and Treponema pallidu m IgG and IgM [Interp]on 04-16-2022 SYPHILIS INTERPRETATION Cannot exclude r ecent Treponemal infection if specimen collected within 7-10 days after appearance of suspect lesions or 2-3 weeks after an exposure. Clinical correlation is required. Normal [facility] Comment on above: Order Comment: Speci men Type: BLOOD SPECIMENOrdering Facility: [facility] Address: [address] [place] [address] Performed By: #### G CCT #### [place] [phone] T. pallidum IgG+IgM IA Ql (S) Non-Reactive Normal Nonreactive [facility] Comment on above: Order Comment: Speci men Type: BLOOD SPECIMENOrdering Facility: [facility] Address: [address] [place] [address] Performed By: #### G CCT #### [place] [phone] Coding Summary.on 03-27-2022 Coding Summary. [id number] Gh 0bWw+PGhlYWQ+AM2ETRSnP 85xpNQokA0BE3sOUN9XCDG QFTRFGT1BYX1lbFQ0GSqcG 2VybiAv NrjgwASfKF39YEf0WTH1sB hbQPzqjS8zhMGkI1t7VrHg JL86cK64ZLoqISArMrA9Wq ZpbjsgbWFy D0dhXdSkcSFeRmm+PHRhYm xlIHdpZHRoPScxMDAlJyBz ySfcFR5uTq4jKEJtKCJzoE xhcHNlOiBj u8dtLXJuLCbjDL4ufBxbG6 SawIW2BPYch2a6Rq65hFB+ VSOpGBM4tYcxDZyjs843Yx Aps9bkLRO3 kDCjKWkeOHZ1V05os8M4KG CxFSUvQKH3yRX9hA7sbPpe awxlJ9DwjFOnGqN9UCO9uT QikF1lnFsg blxrpN6uUnf+U30WJV2YXE NNAU1YVmw8A5ZbCejycVA+ PD96ARPeDH21kIZreVGud7 kydOj7MtMh OOGyDMX4oOggDYwio9DyNV WzJ41tpCDjj9U4ZBWswTep sGAfBpJisKY5hA9bXWqzpw bbn9pwxury Snzof8zmco18oC79D66zMH siOGJaJLK9PRPaMQJcpXcz ke6knG9pOj8+ZFpyy3rqj3 xwrFl6TjBu VUHqhzTdmBpdPML9w7OhFl 22Y9UvfFpgb3GrSwr5zv08 sGWhj6B0tDD6PHfsQRGaoM 9oRVhzMhA6 YNAnOoTojJ59fJIlLKukXh 3gqEyhtGjyRF9eCCPsetmb CXItpS4nMDOjpBDtcOcbYN 4wNTBpbjtm v698ErZhRRV6SVIruPBcH3 SfhI7gXbMzXTMvZOJkC5Ma kERlBNtvH665ZDvaKwS0QD WvjwXjI9Ta SCPxiFjiMfM1x3R8Zk3Lr2 CylwznANK3RSzbQIT1HgS5 XhNvDvW5I8ExFgp4URIdzP rtPL7sH2Zs NTXmvhocmlqkqEP2GNZcTF PjkA86hRWuYYnyUe6re5B1 k433YEPlRHEjxN13Nr2qpV ogMTBwdCBU yO0gcrnsd9wywlafCdQlNM FyGGv8OQs0QVEmcTqwMxYg TPI3NzD5PRQ3lZRzyV6htJ utzvtdaB5w Oyc+O81ceG2uIHN9KQG0kj ctIHJkqrPdHH70XX06H7Rm PjwvdGFibGU+PGRpdiBzdH urZM7mHlUu d6yba8AnXPvsY9SyHWMeVU xfOce9RCJxHQH3cJG2qG3r JLBrPIxey6G1nZO0J3Weho Wtts9pz1lv WGOiPUloP49haLStc3F8ZB TlbKI9LDYoqMceMyRinA66 Oyc+GVQynQkkv9McRnucw4 ild0ftnMb6 CiOmWJRuvqAqyZfiUAG7f1 UkPt88W37kZXgfAFSaOSPr EDWfMPUztVytwc8lhM4xTs 8+PGNvbCB3 wGE4dL2rLMFaAfC3DKhpS1 64XeRzqWQeBnlpx2orf6jf sQu9YdIyPKNsbpAxvIyuGY E1y2KrPa30 W05nXJflMGBbTVMiAPKbIO DixOtupf7feG1gHi8+PC9j i7wktj15oO31bWF+PHRkIH M8eKmnGZls CDLgnV0aBRwgIoT7OCBeVl HbjB91tAPqYYutIt1ubScu aSlvSN4eBNBevtohk303Nu Fdb4uyVXAb hWPbMYusSVI2X94gy1X1YR WbWLDlGWQ2aOH7hM3qfUnn bjogbGVmdDsgdmVydGljYW xlXFncZ722 IHRvcDsnPlBhdGllbnQgTm GqWLp9N1WfYnf7KMLdcAhm DR3ewFDqINtlEn9ynDteeA jmRH7uWLXj vaqcl602IxNfw7guFEIcvV DbWIyeUOA7L09fg5O3XWNe JNRwOQB6vWY8oR3nyVsfvt ogbGVmdDsg dtZgjIdiWQdgKHjhD179ZQ RvcDsnPkJpcnRoIERhdGU6 QN22ZA13xTWgx1O7lIE9D1 BhZGRpbmct peoonXG7AHWqXBAgzW92Sn 2doAiyMd7tHTNuPWC7XTCl yQWeN0QpbM2oMoRwFECbML HzI7QafBYg KJpxV286IYmaQxO7MYTiaw UyP3WxKUYyfSnhEsG1i9H0 Wm9OV1G7VK20VA53gZLka3 G1hBM7F8Ah AKToviertntfeDT0NSPgJF AgnI97Pe0pdUlzXt9vYLBg EXY3KJYxjAHtM0RmkH2jDr AjMDAwMDAw V4IsyGCuDAkqW691CCxmCa U9IJDdxkLiL4LrJQDbiAub RgQ8h6B4Gi8ZPPj8FB18YL 15oNOdc1E7 vCH6E6EdDSMhdwgogzakyV U7CPYxSJVyvN06Bq1meWqy Af9cUQNiAGG4VUOflJDyY7 JaxF1aXwGj CYRoDXNuV5ZccVMtEVamV7 80BUvaFpN5WFJzycSlP1Ze MUJbnMrcWtI7f2V1Ac0RIY NpNC37QJC1 nTH3PH87PK97H4CjGzqwvN FibGU+PHRhYmxlIHdpZHRo EWcwAAVtKmCukTusVT4nLw 9yZGVyLWNv iMcxjZUcRdJey5pvJGTkTW bnSX4pjGifI1LzsMV5JVAw l5d4Or36P54yK8GskSA+PG OpzWM5hMV3 sE4gSiBuGuF9DDkjW489Xx GvaCDxEfppv4nsp2mypEo7 LyU7SJRjelEaeLgjZPW3e2 PfVq20E60t IHdpZHRoPSIxNSUiIHZhbG yijq5xxC1yGw8+PGNvbCB3 cUB1rZ9cVmEpMcH0ZNbbT7 49InRvcCIv Nshrs9ohu1gzhVc3NpHkJX VtidPgtRbaONU1f2IvZa14 V1OatAaxc9NqJnv3pi76xK Bch2Q0zGI5 Y5LaHNKzgzmpvRKwqLdsCN 0cVTUotiuiJISscW9lNFMv O9c5UzApOaT0CZolP0Mswy G1KIGluRLi IDkcFCP9V88rm8E0ZVYoXJ CdYOA0fKW3tE5tiBmxpvgr bGVmdDsgdmVydGljYWwtYW zxW040RYGm bVanRPRkqB7sKWLbjPFyiK bfSM6eFNOdsuhmEcJQC3cv GI0XX1TVJVP7I7FpDbr5AB ZohBquXI9n fISzTIpkRp6ixOattPdfBJ 7xHLHxhdanVQFstV0rKAKl nNGsbWziZO1tSCQccavto5 04VjBmKQR4 NVRgyNTdQ6SkuH5zXqVxKM HfEZQoF0IgbBUmMXflQ192 LVtxXaW6IOXfulSqT5JpAH FsaWduOiB0 u9M4Nb6wBa5vWr7eNQf0RH 83ST02xSAbd3D7kFS5N9Nc KMGspxdkhomdtCX9ZNFvWR BtnK71mELm SKzlCb2nv3N0r287VGOnWC CweK05Oe0wzOhiFNWtoNEK zU6vpxghq9itxtgmQsStBG AxVUk9LJk4 PFXtdYbvSwJlKOH6HtF6UR O7eYEvtK4vjJuppufspF1f Oyc+OstsDXTsjkX8H0HuIy u9ZGNvrMzs VK6vgYZqYJkkDu2fjYxeaF ylTC1zLRKrgcddIWQnxZ0b MCGeuBGuyKspDK9tNXFizo xxb877OmNx VYO3GDZxqZWnX8EzgY4xQq FoNSSpCPKpK2BqmKIsNIwr G181SPgaXwZ7GEPdhkKmX8 FsLWFsaWdu QfM8x5C0Ip3TJF6amGN6Y4 LaYsy7MTVtuYhjQK9kyOJs RHluDl5laLdrpHauRY1lUD BpbjtwYWRk uY6cCGTzvUPbmOazKN9jOB Lcngbcl050QkHuGAY3EUUb oEKpL8KlkW1zHdAuYSPwWU EiC2PefLNt AChpE443NMlbUeM5BWBeyh IiJ4VmWOXgeWjkLpM3d2Q0 Kg9LyIBqACLcUR60SM04DR 04K1EiIqhe dGFibGU+PHRhYmxlIHdpZH LgXUzfAWWpCmPuzExdTH2n Pa6iFUWcIDEmfVkzqWEqWo Qlz0gbTEZz SOhrSG9hqUrzV0ArhFI1WM Csy3m8Ht27I51eY0NdwDL+ UMRiuZI0cWN4zH5jUzHyKy R1IFomD321 LgLkaJVyBglaw5fhc0ojlD p5ZxNnUOMsbsZnkAqdJPA6 h1OnOr94I86mGOinUBTmNU IyMCUiIHZh sNuplt2gtB5aEw7+PGNvbC L6nLU2aK5sQsInVxS1DCog B301QhVaxFScRilkB05vK8 JvdXA+PHRy Nvl9ORPecUtxGU8wvQJhGD zwUe0nCBJ0EpNeYcAzMSmh B9FxQITteisnmfkrcSC0UQ LiNQKpxF72 Ji5idYaiKk0xYFLqKFR7NJ EkdPJvC5RfdX2sTzYeQZEo ANKrA8HbwDFiOLeaH270XF lbBbY1VBFy yeDjS5MwRMBmvSizCdY8t5 W5Oa6RzCmxpNClRM0pTfTj QMm0O4KcBqj4PZDneAjqQH 0ncGFkZGlu Ko1dqIjelVqpWT0gSNJkon qvw622PsLkt7nuQVAxxXIs DDtlMPP7G54fq3P7DNEkHK NsFTY1cST1 sA4gySwazjjjlAEkiJfgyd ArpKaqSOeqPMasR950QGNa nMdpHwWSMjd6M4DiTlk7CZ ClbUhnPC9j iJGxICuvJp2snQznpEnlSS 0tZLZudjqwc048NxXgk4wr TAViaQNaGVffXBW8E55oz0 F4VLKjCYLn XKQ7rLR9bJ9osZaiktyqiL VmdDsgdmVydGljYWwtYWxp Y718FVGxjBcnJd9PVdr1G8 GaTze7OKBw lTxyGY7vvRSoGBrrBl4xsC vvxElbZM9pIQYqlyxbl020 JyBfg7utDEWilYPxRJnkAA B6W54yj1L8 EREtXYPoOES1fYN8mI2epA lnbjogbGVmdDsgdmVydGlj NYucLEllT947ZJTaePbdQj BheWVyOjwv dGQ+FV65es64K8QpMqdiRy r0PMTjWHO3yIG7eB2oPBIc MAsbc4A3wRW1A7WhwtZzts 3mu6bfHHBf ZTog (more content not included)... Normal [facility] BhCG Quanton 03-24-2022 HCG.beta subunit Qn 1 m[IU]/mL Normal 1-3 Fishe mckenzie [facility] Comment on above: Result Comment: GEST ATIONAL AGE HCG RANGE (mIU/mL) NON- <1-3 0.2-1 WEEKS 5-50 1-2 WEEKS 50-500 2-3 WEEKS 100-5,000 3-4 WEEKS 500-10,000 4-5 WEEKS 1,000-50,000 5-6 WEEKS 10,000-100,000 6-8 WEEKS 15,000-200,000 8-12 WEEKS 10,000-100,000 Performed By: #### 2 [id number] #### [facility] [address] [place] [address] CHEMISTRYOrdered By: SYSTEM SYSTEM on 03-24-2022 HCG.beta subunit Qn 1 m[IU]/mL Normal 1 - 3 mIU/mL FTM C Remisol CNPNon 03-24-2022 [facility] Telephone ([facility]) PRINCESS CANTU ([id number]) 1995 F Date Time Provider Department 03/24/22 KAVITA SWEET [facility] During your visit today, we recorded the following information about you: Vee Garner, JANNET 03/24/2022 9:34 AM Signed calling today. LMP 02/11/22. Pt took HPT 03/19 d/t period being late. Pt got 3 positive tests. Scheduled New ob visit for 04/27. Pt states she started having light bleeding that has persisted for the last 4 days. Reports HPT today is negative. Pt asking about the possibility of false positives. Advised will route message to provider. Pended HCG quant. Please advise if pt to keep appt 04/27 or wait to see results of HCG and move appt sooner. Kavita Sweet, DO 03/24/2022 11:40 AM Signed please call patient back could have been a chemical will have nurse contact once blood work reviewed home test reliable if desiring OV for concerns please schedule other OV, cancel OCT new OB thanks Mary Onofre RN 03/24/2022 11:55 AM Signed VM left w req for RCTO Allergies As of Date: 03/24/2022 (No Known Allergies) Date Reviewed: 09/09/2021 Reviewed by: Brendan Blankenship PA-C - Fully Assessed Reason for Visit: Bleeding With [58046] Primary Visit Diagnosis:Bleeding in early [O20.9] Order(s):HCG QUANTITATIVE [SQHCGQT] Order #: [id number] FUTURE Prescriptions as of 03/24/2022 - metroNIDAZOLE (FLAGYL) 500 mg tablet Take 1 tablet by mouth twice daily. for vaginosis. Do not drink alcohol while taking this medication - lamoTRIgine (LAMICTAL) 25 mg tablet - lisinopril (ZESTRIL, PRINIVIL) 10 mg tablet Take by mouth q 24 HR. Problem List As Of Date 03/24/2022 Noted Resolved Contraceptive use [Z30.40] 07/02/2015 NO SHOW 08/09/2017 08/09/2017 APPOINTMENT CANCELLED 08/09/2017 Obesity, Class I, BMI 30-34.9 [E66.9] 07/04/2021 Encounter Status:Closed by BRENDAN SOUZA on 03/24/22 Normal [facility] Consent for Treatmenton Consent for Treatment [id number] 0CD:127 [facility] Physician Orderon 03-24-2022 Physician Order [id number] 0CD:127 [facility] CNPNon 03-19-2022 CNPN Telephone ([facility]) ALONDRAANNABELN Alison ([id number]) 1995 F Date Time Provider Department 03/19/22 [place] DWYER [facility] During your visit today, we recorded the following information about you: Mary Onofre RN 03/19/2022 8:52 AM Signed LMP 02/11, +hpt. Assisted w initial OBV. Advised to take vitamin w folic acid. First trimester precautions provided. handbook sent in . Allergies As of Date: 03/19/2022 (No Known Allergies) Date Reviewed: 09/09/2021 Reviewed by: Brendan Blankenship PA-C - Fully Assessed Reason for Visit: Appointment [[id number]] Prescriptions as of 03/19/2022 - metroNIDAZOLE (FLAGYL) 500 mg tablet Take 1 tablet by mouth twice daily. for vaginosis. Do not drink alcohol while taking this medication - lamoTRIgine (LAMICTAL) 25 mg tablet - lisinopril (ZESTRIL, PRINIVIL) 10 mg tablet Take by mouth q 24 HR. Problem List As Of Date 03/19/2022 Noted Resolved Contraceptive use [Z30.40] 07/02/2015 NO SHOW 08/09/2017 08/09/2017 APPOINTMENT CANCELLED 08/09/2017 Obesity, Class I, BMI 30-34.9 [E66.9] 07/04/2021 Encounter Status:Closed by MARY ONOFRE on 03/19/22 Normal [facility] Office Visit (Neuro-General) on 12-24-2021 Follow-up visit Provider Impressions 1. Seizure: Stable. Last episode was 08/2020. Currently on lamotrigine 100mg BID. Continue annual CBC, CMP per PCP. Not on OCPs, but discussed considerations. Will repeat lamotrigine level now. Patient aware to notify office MARTHA should she become . Follow-up in 1 year Diagnoses/Problems Assessed Seizure (780.39) (R56.9) Orders PMH: New onset seizure Renew: lamoTRIgine 100 MG Oral Tablet; TAKE 1 TABLET BY MOUTH TWICE DAILY Seizure Lamotrigine Level, Serum; Status:Active; Requested for:24Dec2021; Chief Complaint seizures Neurologic Evaluation. Follow up for seizures. History of Present Illness PRINCESS CANTU is a 26 year old female who presents to clinic for follow-up of seizures. She was last seen 06/25/2021. Her last seizure was 08/2020. She has had no further seizures or events of time lapse or memory loss. She is on lamotrigine 100mg BID. She is tolerating this well with no side effects. To review, on April 18, 2020 she was sleeping, around 10:30pm. Her boyfriend was with her and call 911. He described her choking, stiffening all over, eyes rolled back, but no tongue trauma or bowel/bladder incontinence. She was taken to [facility] in [place]. She had lab work and a CT scan, was told this was normal. She was referred to a Neurologist. She had an EEG and an MRI. She was prescribed a seizure medication but did not want to start taking it. She was referred to a Neurologist for a second opinion. She then had another seizure, also occurred while she was sleeping this time occurred in the morning. Her boyfriend noticed that she was choking, she was stiff all over and her eyes rolled back. She had associated lateral tongue trauma. She had no bowel/bladder incontinence. She then woke up and was confused, disoriented and this persisted until she was in the hospital, at least 30 minutes. She does not recall anything from this episode until she was in the hospital. She had an episode in August 21, 2020 where she had a lapse in time while sitting in her car, was tired afterword, no tongue trauma or bowel/bladder incontinence. Chart was reviewed and summarized above (Subjective). Past medical, surgical, family and social history was reviewed and updated in the chart. Chart was reviewed and pertinent medical history was summarized above. Active Problems Problems Abnormal weight gain (783.1) (R63.5) Allergic rhinitis (477.9) (J30.9) Anxiety (300.00) (F41.9) Bacterial vaginosis (616.10,041.9) (N76.0,B96.89) Benign essential hypertension (401.1) (I10) Bilateral chronic otitis media (382.9) (H66.93) Chest pain (786.50) (R07.9) Chronic pansinusitis (473.8) (J32.4) Chronic sinusitis (473.9) (J32.9) Class 1 obesity with body mass index (BMI) of 32.0 to 32.9 in adult (278.00,V85.32) (E66.9,Z68.32) Conductive hearing loss, bilateral (389.06) (H90.0) Elevated BP without diagnosis of hypertension (796.2) (R03.0) Encounter for audiology evaluation (V72.19) (Z01.10) Globus sensation (784.99) (R09.89) Hair loss (704.00) (L65.9) Insomnia (780.52) (G47.00) Seizure (780.39) (R56.9) Tonsil stone (474.8) (J35.8) Vaginal discharge (623.5) (N89.8) Vitamin B12 deficiency (266.2) (E53.8) Surgical History Problems No history of surgery Family History Mother No pertinent family history Social History Problems Never smoker No illicit drug use Occasional alcohol use Allergies Medication No Known Drug Allergies Recorded By: Petrona Medeiros; 01/08/2016 3:47:26 PM Current Meds Medication NameInstruction lamoTRIgine 100 MG Oral TabletTAKE 1 TABLET BY MOUTH TWICE DAILY. Lisinopril 10 MG Oral TabletTAKE 1 TABLET DAILY. Vitals Vital Signs Recorded: 24Dec2021 11:32AM Xeynyikwygc40.1 F Heart Rate54 Wnigceqm157 Mtqyzulwr37 Height5 ft 9 in Oegmko192 lb 1.6 oz BMI Dredwwcjxj09.03 kg/m2 BSA Calculated2.11 Tobacco Useb) No Fall Screeninga) No falls within the last year O2 Plsnytutyx413, RA Physical Exam Constitutional: General appearance: no acute distress Mental status: The patient was in no distress, alert, interactive and cooperative. Affect is appropriate. Cranial nerves III, IV, and : Pupils round, equally reactive to light; no ptosis. EOMs intact. No nystagmus. Cranial nerve VII: Normal and symmetric facial strength. Motor: Muscle strength was 5/5 throughout. Gait: Gait is normal without spasticity, ataxia or bradykinesia. Stance is stable with a negative Romberg. Results/Data Neuroimaging was personally reviewed and is as documented in the HPI/assessment and plan. Signatures Electronically signed by : Nedra Calderon MD; Dec 24 2021 11:37AM EST (Author) Normal [employer] Tobacco Screening.on 022 Fall risk assessment a) No falls within the last year MP-Neurolog y-Wood SJW DO Work Phone: Tobacco use status CP b) No M P-Neurolog y-Wood SJW DO Work Phone: Office Visit (Primary Care T xt/Forms)on 11-17-2021 Follow-up visit Diagnoses/Problems Assessed Benign essential hypertension (401.1) (I10) stable. Continue current meds Class 1 obesity with body mass index (BMI) of 32.0 to 32.9 in adult (278.00,V85.32) (E66.9,Z68.32) Exercise and diet reviewed. Tonsil stone (474.8) (J35.8) advised gargling to prenvent. no evidence of infectious origin on exam. Orders Benign essential hypertension Renew: Lisinopril 10 MG Oral Tablet; TAKE 1 TABLET DAILY Provider Impressions Provider Impressions Free Text Note Form: follow up appointment in 6 months Follow up appointment for a wellness exam Chief Complaint 6 month follow up History of Present Illness PRINCESS CANTU presents with complaints of sore throat. Associated symptoms include postnasal drainage, but no nasal congestion, no fever, no chills, no headache, no hoarseness, no neck stiffness, no ear pain, no facial pain, no abdominal pain, no nausea, no vomiting, no cough, no rash and no fatigue. The patient states she has been doing well with her blood pressure control since the last visit. She has no comorbid illnesses. She has no significant interval events. Symptoms: The patient is currently asymptomatic. Home monitoring: The patient checks her blood pressure sporadically. Medications: She denies medication side effects. Active Problems Problems Abnormal weight gain (783.1) (R63.5) Allergic rhinitis (477.9) (J30.9) Anxiety (300.00) (F41.9) Bacterial vaginosis (616.10,041.9) (N76.0,B96.89) Benign essential hypertension (401.1) (I10) Bilateral chronic otitis media (382.9) (H66.93) Chest pain (786.50) (R07.9) Chronic pansinusitis (473.8) (J32.4) Chronic sinusitis (473.9) (J32.9) Conductive hearing loss, bilateral (389.06) (H90.0) Elevated BP without diagnosis of hypertension (796.2) (R03.0) Encounter for audiology evaluation (V72.19) (Z01.10) Globus sensation (306.4) (R19.8) Hair loss (704.00) (L65.9) Insomnia (780.52) (G47.00) Seizure (780.39) (R56.9) Vaginal discharge (623.5) (N89.8) Vitamin B12 deficiency (266.2) (E53.8) Surgical History Problems No history of surgery Family History Mother No pertinent family history Social History Problems Never smoker No illicit drug use Occasional alcohol use Current Meds Medication NameInstruction lamoTRIgine 100 MG Oral TabletTAKE 1 TABLET BY MOUTH TWICE DAILY. Lisinopril 10 MG Oral TabletTAKE 1 TABLET DAILY. Allergies Medication No Known Drug Allergies Vitals Vital Signs Recorded: [id number] 01:08PM Temperature: 97 F Heart Rate: 70 Respiration: 18 Systolic: 126 Diastolic: 84 Height: 5 ft 8 in Weight: 213 lb BMI Calculated: 32.39 kg/m2 BSA Calculated: 2.1 Tobacco Use: b) No PHQ-2 #1. Over the last 2 weeks have you felt down, depressed or hopeless? (If yes, answer PHQ-9 below): No PHQ-2 #2. Over the last 2 weeks have you felt little interest or pleasure in doing things? (If yes, answer PHQ-9 below): No Fall Screening: a) No falls within the last year O2 Saturation: 96 Physical Exam General--AANDO x 4, NAD, well groomed Skin warm dry, no rashes eyes-- lids nl, PERRLA, EOMI ENT- canals and TM's clear bilaterally. no erythema or pain. MMM OP--MMM, tonsils no erythema or exudates, symmetric. no oral lesions neck--no LAD, no thyromegaly CV--RRR no murmurs, no rubs Pulm--CTA B, no wheeze, rales or rhonchi Ext-- No cyanosis clubbing or edema Neuro--grossly non focal Signatures Electronically signed by : Koffi Uriarte MD; Nov 17 2021 1:34PM EST (Author) Normal [employer] Tobacco Screening.on Adult depression screening assessment No [employer] Phone: Fall risk assessment a) No falls within the last year MP-Attero-Ramesh [employer] Phone: Tobacco use status CPHS b) No M [employer] Phone: Bact Vag Amplificationon Bact Vag Amplification Positive Criticall y abnormal Negative for bacterial vaginosis [facility] Comment on above: Performed By: #### G CCT #### [facility] [employer] [address] [id number] CNOVon 09-09-2021 CNOV Office Visit ([facility] ) PRINCESS CANTU ([id number]) 1995 F Date Time Provider Department 09/09/21 10:00 AM BRENDAN [facility] During your visit today, we recorded the following information about you: Pulse Blood pressure Weight Height 73/minute 141/80 96.3 kg 1.727 m Last Period 08/13/21 Brendan Blankenship PA-C 09/09/2021 10:17 AM Signed Princess Rosas Alondra is a 25 year old year old female. Patient presents for vaginal discharge with odor and irriation for a few weeks. No dysuria or itching. Smoker? No Last Pap? 07/02/20, NIL History of abnormal Paps? ASCUS in 2014 Patient's last menstrual period was 08/13/2021. FAMILY HISTORY Problem Relation Age of Onset - Heart Maternal Grandmother arrhythmia - Cancer Maternal Grandfather lung - Asthma Father - Breast Cancer Paternal Grandmother - None Mother - Diabetes Mother Maternal nephew/ insulin dependent - Ovarian cancer No Family History - Uterine Cancer No Family History Patient is identified by name and birthdate: Yes Medications were reviewed and verified. Yes Her health maintenance record has been reviewed and has been updated: Yes Is patient having any pain? No 0 on a scale of 0 to 10 OB History T0 L0 SAB0 IAB0 Ectopic0 Multiple0 Live Births0 Comment: Menarche 10 Gynecological history: History of STDs: Yes. Chlamydia 2014 and 2020 History of fibroids / cysts: No Menarche 10 years old Periods regular 28-30 every 4 days Cramps: Yes Is she on control?: No History of sexual trauma or abuse? No PAST MEDICAL HISTORY Diagnosis Date - ASCUS of cervix with negative high risk HPV 07/02/2015 - Chlamydia 04/15/2021 - Seizure (HCC) 2019 PAST SURGICAL HISTORY Procedure Laterality Date - NONE Current Outpatient Medications Medication Sig - lamoTRIgine (LAMICTAL) 25 mg tablet - lisinopril (ZESTRIL, PRINIVIL) 10 mg tablet Take by mouth q 24 HR. - ibuprofen (MOTRIN) 200 mg tablet Take 3 tablets by mouth every 8 hours as needed for Pain. No current facility-administered medications for this visit. 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 Portions of this record were documented by the Shipper. I, Brendan Blankenship, have reviewed this information as documented for accuracy and performed all elements of history taking, and edited the record as necessary. 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 NEURO: Awake, alert and oriented A/P: 25 year old y/o F here for vaginal discharge. 1. Vaginal discharge - Suspect BV - MITCH / TRICHOMONAS AMPLIFICATION - BACTERIAL VAGINOSIS AMPLIFICATION - GC/CHLAMYDIA DNA DET Rx Flagyl sent. Advised abstaining from intercourse, ETOH while on Flagyl. F/U PRN Brendan Blankenship PA-C Medical Decision Making: Problems: Low: Acute, uncomplicated illness or injury Data: Unique test(s) ordered: 3+ Risk: Low: Low risk from testing/treatment Medical Decision Making Level: 3 - Low Referring Provider: SELF [200] Allergies As of Date: 09/09/2021 (No Known Allergies) Date Reviewed: 09/09/2021 Reviewed by: Brendan Blankenship PA-C - Fully Assessed Reason for Visit: Vaginal Discharge [4161] Primary Visit Diagnosis:Vaginal discharge [N89.8] Order(s):MITCH / TRICHOMONAS AMPLIFICATION [SQCVTV] Order #: [id number] BACTERIAL VAGINOSIS AMPLIFICATION [SQBVAMP] Order #: [id number] GC/CHLAMYDIA DNA DET [SQGCCAMP] Order #: [id number] metroNIDAZOLE (FLAGYL) 500 mg tabletTake 1 tablet by mouth twice daily. for vaginosis. Do not drink alcohol while taking this medicationDisp: 14 tabletRfl: 0 Prescriptions as of 09/09/2021 - metroNIDAZOLE (FLAGYL) 500 mg tablet Take 1 tablet by mouth twice daily. for vaginosis. Do not drink alcohol while taking this medication - lamoTRIgine (LAMICTAL) 25 mg tablet - lisinopril (ZESTRIL, PRINIVIL) 10 mg tablet Take by mouth q 24 HR. Problem List As Of Date 09/09/2021 Noted Resolved Contraceptive use [Z30.40] 07/02/2015 NO SHOW 08/09/2017 08/09/2017 APPOINTMENT CANCELLED 08/09/2017 Obesity, Class I, BMI 30-34.9 [E66.9] 07/04/2021 Prescriptions ordered this encounter Disp Refills Start End METRONIDAZOLE 500 MG TABLET 14 t* 0 09/09/2021 Route: ORAL Sig: Take 1 tablet by mouth twice daily. for vaginosis. Do not drink alcohol while taking this medication Medications Discontinued During This Encounter Prescriptions - ibuprofen (MOTRIN) 200 mg tablet (Discontinued) Take 3 tablets by mouth every 8 hours as needed for Pain. Letter Text Encounter Status:Closed (more content not included)... Normal [facility] Mitch Trich Amplon 022 Mitch glabrata RNA Negative Normal Negative [facility] Comment on above: Performed By: #### G CCT #### [facility] [address] [address] Mitch sp group RNA Negative Normal Negative [facility] Comment on above: Performed By: #### G CCT #### [address] [place] [id number] [place] [address] Trichomonas RNA Negative Normal [facility] Comment on above: Performed By: #### G CCT #### [address] [place] [address] [place] [address] GC/Chlamydia Amplifon 2021 Chlamydia Amplif Negative [facility] Comment on above: Performed By: #### G CCT #### [place] [address] GC Amplification Negative [facility] Comment on above: Performed By: #### G CCT #### [address] [place] [address] GC/Chlam Amp Source Cervix Normal [facility] Comment on above: Performed By: #### G CCT #### [place] [address] Bact Vag Amplificationon Bact Vag Amplification Negative Normal Negat ko for bacterial vaginosis [facility] Comment on above: Performed By: #### C VTV, BVAMP #### [facility] CLIA [id number] [address] [place] [address] [facility] 07[facility]04-[facility] PRINCESS CANTU ([id number]) 1995 F [facility] Date Time Provider Department 07/04/21 4:00 PM GEORGIA DWYER PATRICIA During your visit today, we recorded the following information about you: Pulse Blood pressure Weight Height 74/minute 131/86 95.7 kg 1.727 m Last Period 06/07/21 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 APRN.LAB SCIENTIST 07/04/2021 4:39 PM Signed Princess is a 25 year old who presents with the following complaints: 1) here for an annual gynecologic exam 2) needs MARGAUX, diagnosed with BV and chlamydia 04/15/21. Having slight odor and discharge for the last couple weeks. Menses: cycles every 28 days and 3-4 days of flow. 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 LMP: 06/07/2021 (Exact Date), Having periods Age at Menarche: Age at First : Age at Menopause: Paper Reel Operator History Comments: Sexual Activity: Yes; Male; same partner since 2014 Contraception: No contraception data on record PAST MEDICAL HISTORY Diagnosis Date - ASCUS of cervix with negative high risk HPV 07/02/2015 - Chlamydia 04/15/2021 - Seizure (HCC) 2019 PAST SURGICAL HISTORY Procedure Laterality Date - NONE FAMILY HISTORY Problem Relation Age of Onset - Heart Maternal Grandmother arrhythmia - Cancer Maternal Grandfather lung - Asthma Father - Breast Cancer Paternal Grandmother - None Mother - Diabetes Mother Maternal nephew/ insulin dependent - Ovarian cancer No Family History - Uterine Cancer No Family History SOCIAL HISTORY Social History Tobacco Use - Smoking status: Never Smoker - Smokeless tobacco: Never Used Substance Use Topics - Alcohol use: Yes - Drug use: No REVIEW OF SYSTEMS Abdomen: No abdominal pain, nausea, vomiting, diarrhea, or constipation. No bloating, early satiety, indigestion, or increased flatulence. Bladder: No dysuria, gross hematuria, urinary frequency, urinary urgency, or incontinence. Breast: No breast lumps, nipple d/c, overlying skin changes, redness or skin retraction. Allergies and current medication updated:Yes EXAM: BP 131/86 Pulse 74 Ht 5' 8 (1.73m) Wt 211 lb (95.7kg) LMP 06/07/2021 BMI 32.09 kg/(m2). GENERAL: pleasant, female in no apparent distress HEENT: Normocephalic, atraumatic, mucus membranes moist and no lesions NECK: Supple, full range of motion, no adenopathy and thyroid normal DERMATOLOGY: Normal, without lesions, non-icteric and non-hirsute BREAST: soft, non-tender, symmetric, no dominant mass, normal nipple-areolar complex, no lymphadenopathy and no nipple discharge CHEST: Normal inspiratory effort ABDOMEN: soft, non-tender and no masses PELVIC: external genitalia normal, normal Bartholin's glands, urethra, [place]'s glands, no vulvar lesions, no cervical lesions, good vaginal support, physiologic discharge present, normal appearing perineal body and perianal region BIMANUAL: uterus normal size, shape and consistency, no adnexal masses and non-tender NEURO: alert and oriented x3,exam grossly non-focal EXTREMITIES: normal ASSESSMENT/PLAN: 1) Health maintenance: -Pap up to date 2019, next pap 2022 -Mammogram starting age 40. -Nutrition, exercise and routine health maintenance exams reviewed. 2) Contraception: condoms and withdrawal. Contraceptive options reviewed and declined, aware of risks/failure rates. 3) STD screening: Accepted STD check for Gonorrhea and Chlamydia and trichomonas. 4) Acute vaginitis - Aptima pending. Discussed perineal care: maintain oral hydration, wear loose-fitting cotton underwear (and clothing), use good roc-care with a gentle, NON-perfumed dye-FREE soap (ie, Юлия Lopez/Denise, ), same perfume/dye free type of detergents for washing undergarments, wiping dkvrs-zf-hgxr, sleep in loose shorts without underwear, shower immediately after intercourse/exercise, make sure perineum is gently blotted dry before dressing. Avoid scratching, scented pads/tampons/toilet papers, cranberry juice, bubble baths, and intercourse until symptoms are relieved. NO douching. If you shave, use a new razor at least twice monthly. 5) Follow up one year or sooner as needed ABHINAV Tenorio APRN.CNP 07/04/2021 4:08 PM Signed ACOG Screening Guidelines The following health screening schedule is recommended by the [employer] (ACOG). Some of these tests may be ordered or performed by your primary care doctor. Pap test screening The pap test loo (more content not included)... Normal [facility] Mitch Trich Amplon 021 Mitch glabrata RNA Negative Normal Negative [facility] Comment on above: Performed By: #### C VTV, BVAMP #### [facility] CLIA [id number] [address] [place] [address] [place] Mitch sp group RNA Negative Normal Negative [facility] Comment on above: Performed By: #### C VTV, BVAMP #### [facility] CLIA [id number] [address] [place] [address] [place] Trichomonas RNA Negative Normal [facility] Comment on above: Performed By: #### C VTV, BVAMP #### [facility] CLIA [id number] [address] [place] [address] [place] GC/Chlamydia Amplifon 2020 Chlamydia Amplif Negative [facility] Comment on above: Performed By: #### G CCT #### [place] [address] GC Amplification Negative [facility] Comment on above: Performed By: #### G CCT #### [place] [address] GC/Chlam Amp Source Cervix Normal [facility] Comment on above: Performed By: #### G CCT #### [place] [address] Tobacco Screening.on 021 Fall risk assessment a) No falls within the last year MP-Neurolog y-Eugene SJW DO Work Phone: Tobacco use status CPHS b) No M P-Neurolog y-Eugene SJW DO Work Phone: GC + Chlamydia By Amplified Detectionon 05-20-2021 C. trachomatis rRNA HUMERA+probe Ql (Unsp spec) Negative Negative MP-WSPC-Ramesh n Ruby Work Phone: Comment on above: The APTIMA Combo 2 a ssay is FDA-approved for Chlamydia trachomatis and Neisseria gonorrhoeae testing on female endocervical and vaginal swabs, ThinPrep liquid pap samples, male urine samples and urethral swabs. Performance characteristics for Chlamydia trachomatis and Neisseria gonorrhoeae testing on specific ypn-MME-lbmerezh sample types (female urine samples) have been validated by [facility]. This laboratory is certified by CLIA to perform high complexity testing. Samples from all other sites are not validated for this method. N. gonorrhoeae rRNA HUMERA+probe Ql (Unsp spec) Negative Negative MP-[facility]SP[facility]-Ramesh n Ruby Work Phone: Comment on above: SOURCE: Urine The AP KELSIE Combo 2 assay is FDA-approved for Chlamydia trachomatis and Neisseria gonorrhoeae testing on female endocervical and vaginal swabs, ThinPrep liquid pap samples, male urine samples and urethral swabs. Performance characteristics for Chlamydia trachomatis and Neisseria gonorrhoeae testing on specific een-BUU-kyazmwvp sample types (female urine samples) have been validated by [facility]. This laboratory is certified by CLIA to perform high complexity testing. Samples from all other sites are not validated for this method. TSHon 12-24-2020 TSH Qn 2.30 m[IU]/L Normal 0.44 - 3.98 [facility] [place] on above: Result Comment: TSH testing is performed using different testing methodology at [facility] than at other [facility]. Direct result comparisons should only be made within the same method. Performed By: #### T SH2 #### [facility] [address] [place] [address] TSH - Thyroid Stimulating Ho ti, Serumon 12-24-2020 TSH Qn 2.30 m[IU]/L See Below [employer] Phone: Comment on above: Reference Range: 0.4 4 - 3.98 TSH testing is performed using different testing methodology at [facility] than at other [facility]. Direct result comparisons should only be made within the same method. Tobacco Screening.on 021 Fall risk assessment a) No falls within the last year [employer] Phone: Tobacco use status CPHS b) No [employer] Phone: CBCon 08-14-2020 Erythrocyte distribution width (RBC) [Ratio] 13.2 % Normal 11.5 - 14.5 [facility] [place] on above: Performed By: #### C BC #### [address] [address] Hematocrit (Bld) [Volume fraction] 39.5 % Normal 36.0 - 46.0 [facility] [place] on above: Performed By: #### C BC #### [address] [address] Hemoglobin (Bld) [Mass/Vol] 13.0 g/dL Normal 12.0 - 16.0 [facility] [place] on above: Performed By: #### C BC #### [address] [address] MCHC (RBC) [Mass/Vol] 32.9 g/dL Normal 32.0 - 36.0 [facility] Comment on above: Performed By: #### C BC #### [address] [address] MCV (RBC) [Entitic vol] 91 fL Normal 80 - 100 [facility] Comment on above: Performed By: #### C BC #### [address] [address] NUCLEATED RBC 0.0 /100 WBC Normal 0.0 - 0.0 [facility] Comment on above: Performed By: #### C BC #### [address] [address] Platelets (Bld) [#/Vol] 235 10*3/uL Normal 150 - 450 [facility] [place] on above: Performed By: #### C BC #### [address] [address] RBC 4.33 x10E12/L Normal 4.00 - 5.20 [facility] [place] on above: Performed By: #### C BC #### [address] [address] WBC (Bld) [#/Vol] 5.8 10*3/uL Normal 4.4 - 11.3 [facility] Comment on above: Performed By: #### C BC #### [address] [address] COMPREHENSIVE PANELon 2020 Albumin [Mass/Vol] 4.7 g/dL Normal 3.4 - 5.0 [facility] Comment on above: Performed By: #### C MP #### [address] [address] ALP [Catalytic activity/Vol] 53 U/L Normal 33 - 110 [facility] Comment on above: Performed By: #### C MP #### [address] [address] ALT [Catalytic activity/Vol] 41 U/L Normal 7 - 45 [facility] Comment on above: Result Comment: Desiree ents treated with Sulfasalazine may generate falsely decreased results for ALT. Performed By: #### C MP #### [address] [address] Anion gap [Moles/Vol] 10 mmol/L Normal 10 - 20 [facility] Comment on above: Performed By: #### C MP #### [address] [address] AST [Catalytic activity/Vol] 27 U/L Normal 9 - 39 [facility] Comment on above: Performed By: #### C MP #### [address] [address] Bilirubin [Mass/Vol] 0.6 mg/dL Normal 0.0 - 1.2 [facility] Comment on above: Performed By: #### C MP #### [address] [address] Calcium [Mass/Vol] 9.5 mg/dL Normal 8.6 - 10.3 [facility] Comment on above: Performed By: #### C MP #### [address] [address] Chloride [Moles/Vol] 105 mmol/L Normal 98 - 107 [facility] Comment on above: Performed By: #### C MP #### [address] [address] Creatinine [Mass/Vol] 0.93 mg/dL Normal 0.50 - 1.05 [facility] Comment on above: Performed By: #### C MP #### [address] [address] GFR- AM. >60 Normal >60 [facility] Comment on above: Result Comment: CALC ULATIONS OF ESTIMATED GFR ARE PERFORMED USING THE MDRD STUDY EQUATION FOR THE IDMS-TRACEABLE CREATININE METHODS. CLIN CHEM 2007;53:766-72 Performed By: #### C MP #### [address] [address] GFR-NON AM. >60 Normal >60 [facility] Comment on above: Performed By: #### C MP #### [address] [address] Glucose [Mass/Vol] 94 mg/dL Normal 74 - 99 [facility] Comment on above: Performed By: #### C MP #### [address] [address] HCO3 (Bld) [Moles/Vol] 28 mmol/L Normal 21 - 32 [facility] Comment on above: Performed By: #### C MP #### [address] [address] Potassium [Moles/Vol] 4.4 mmol/L Normal 3.5 - 5.3 [facility] Comment on above: Performed By: #### C MP #### [address] [place] [address] Protein [Mass/Vol] 7.3 g/dL Normal 6.4 - 8.2 [facility] Comment on above: Performed By: #### C MP #### [address] [address] Sodium [Moles/Vol] 139 mmol/L Normal 136 - 145 [facility] Comment on above: Performed By: #### C MP #### [address] [address] Urea nitrogen [Mass/Vol] 13 mg/dL Normal 6 - 23 [facility] Comment on above: Performed By: #### C MP #### [address] [address] Hematologyon 08-14-2020 Hematocrit (Bld) [Volume fraction] 39.5 % See Below -[facility] DO Work Phone: Comment on above: Reference Range: 36. 0 - 46.0 Hemoglobin (Bld) [Mass/Vol] 13.0 g/dL See Below -[facility] DO Work Phone: Comment on above: Reference Range: 12. 0 - 16.0 MCV (RBC) [Entitic vol] 91 fL 80 - 100 M P-Neurolog -[facility] DO Work Phone: Platelets (Bld) [#/Vol] 235 {x10E9/L} 150 - 450 -Neurolog -[facility] DO Work Phone: RBC (Bld) [#/Vol] 4.33 {x10E12/L} See Below [facility] DO Work Phone: Comment on above: Reference Range: 4.0 0 - 5.20 WBC (Bld) [#/Vol] 5.8 {x10E9/L} 4.4 - 11.3 MP-N eurolog y-[facility] DO Work Phone: WBC (Bld) [#/Vol] 0.0 {/100_WBC} 0.0 - 0.0 MP- Neurolog y-[facility] DO Work Phone: LAMOTRIGINE- LAMICTALon - LAMOTRIGINE- LAMICTAL 6.4 ug/mL Normal 2.5 - 15.0 [facility] Comment on above: Performed By: #### L AMOT #### [facility] [address] [address] Lamotrigine Level, Serumon 0 08-14-2020 Lamotrigine [Mass/Vol] 6.4 ug/mL 2.5 - 15.0 MP -Neurolog y-[facility] DO Work Phone: Metabolic Panelon 08-14-2020 ALP [Catalytic activity/Vol] 53 U/L 33 - 110 MP-Neurolog y-[facility] DO Work Phone: Anion gap [Moles/Vol] 10 mmol/L 10 - 20 MP- Neurolog y-[facility] DO Work Phone: Bilirubin [Mass/Vol] 0.6 mg/dL 0.0 - 1.2 MP-N eurolog y-[facility] DO Work Phone: Calcium [Mass/Vol] 9.5 mg/dL 8.6 - 10.3 MP-Jozef rolog y-[facility] DO Work Phone: Chloride [Moles/Vol] 105 mmol/L 98 - 107 MP-N eurolog y-[facility] DO Work Phone: CO2 [Moles/Vol] 28 mmol/L 21 - 32 MP-Neurol og y-[facility] DO Work Phone: Creatinine [Mass/Vol] 0.93 mg/dL See Below - [facility] DO Work Phone: Comment on above: Reference Range: 0.5 0 - 1.05 Glucose [Mass/Vol] 94 mg/dL 74 - 99 -[facility] DO Work Phone: Potassium [Moles/Vol] 4.4 mmol/L 3.5 - 5.3 - [facility] y-[facility] DO Work Phone: Protein [Mass/Vol] 7.3 g/dL 6.4 - 8.2 -[facility] Work Phone: Sodium [Moles/Vol] 139 mmol/L 136 - 145 [facility] DO Work Phone: Urea nitrogen [Mass/Vol] 13 mg/dL 6 - 23 -[facility] DO Work Phone: Otheron 08-14-2020 Albumin BCP dye [Mass/Vol] 4.7 g/dL 3.4 - 5.0 -[facility] DO Work Phone: ALT With P-5'-P [Catalytic activity/Vol] 41 U/L 7 - 45 [facility] DO Work Phone: Comment on above: Patients treated wit h Sulfasalazine may generate falsely decreased results for ALT. AST With P-5'-P [Catalytic activity/Vol] 27 U/L 9 - 39 -[facility] DO Work Phone: Erythrocyte distribution width (RBC) [Ratio] 13.2 % See Below [facility] DO Work Phone: Comment on above: Reference Range: 11. 5 - 14.5 MCHC (RBC) [Mass/Vol] 32.9 g/dL See Below [facility] DO Work Phone: Comment on above: Reference Range: 32. 0 - 36.0 >60 >60 MP-Neurolog Yolanda MCKENNA DO Work Phone: Comment on above: CALCULATIONS OF MICHAEL MATED GFR ARE PERFORMED USING THE MDRD STUDY EQUATION FOR THE IDMS-TRACEABLE CREATININE METHODS. CLIN CHEM 2007;53:766-72 MRI BRAIN W WO CONTRASTon There are no acute intracranial changes, no evidence of ischemia or hemorrhage. There are no regions of signal abnormality. There are no areas of abnormal enhancement after contrast administration. 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 Diffusion perfusion imaging was obtained. FINDINGS: There are no extra-axial collections. There is no evidence of hemorrhage. There are no areas of signal abnormality on perfusion diffusion imaging to suggest ischemia. The susceptibility images do not demonstrate evidence of hemosiderin deposition within the brain parenchyma or the leptomeninges. There is preservation of the rosa-white matter differentiation. There are no areas of signal abnormality within the brain parenchyma or the posterior fossa to suggest lesion. There are no areas of abnormal enhancement after IV contrast administration. The sulci and ventricles are within normal limits without evidence of hydrocephalus. The basal ganglia are within normal limits. The midline structures are intact, the corpus callosum is within normal limits. The region of the pineal gland and the sella turcica are unremarkable. Temporal lobes and specifically the hippocampi are symmetric. There are no space-occupying lesions in the posterior fossa. The basilar cisterns are patent. The craniocervical junction is unremarkable. The visualized portions of the orbits are within normal limits, the globes are intact. The visualized portions of the paranasal sinuses are within normal limits. The calvarium and soft tissues are unremarkable. [facility]App[facility]rickMER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 Diffusion perfusion imaging was obtained. FINDINGS: There are no extra-axial collections. There is no evidence of hemorrhage. There are no areas of signal abnormality on perfusion diffusion imaging to suggest ischemia. The susceptibility images do not demonstrate evidence of hemosiderin deposition within the brain parenchyma or the leptomeninges. There is preservation of the rosa-white matter differentiation. There are no areas of signal abnormality within the brain parenchyma or the posterior fossa to suggest lesion. There are no areas of abnormal enhancement after IV contrast administration. The sulci and ventricles are within normal limits without evidence of hydrocephalus. The basal ganglia are within normal limits. The midline structures are intact, the corpus callosum is within normal limits. The region of the pineal gland and the sella turcica are unremarkable. Temporal lobes and specifically the hippocampi are symmetric. There are no space-occupying lesions in the posterior fossa. The basilar cisterns are patent. The craniocervical junction is unremarkable. The visualized portions of the orbits are within normal limits, the globes are intact. The visualized portions of the paranasal sinuses are within normal limits. The calvarium and soft tissues are unremarkable. IMPRESSION: There are no acute intracranial changes, no evidence of ischemia or hemorrhage. There are no regions of signal abnormality. There are no areas of abnormal enhancement after contrast administration. 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 Diffusion perfusion imaging was obtained. FINDINGS: There are no extra-axial collections. There is no evidence of hemorrhage. There are no areas of signal abnormality on perfusion diffusion imaging to suggest ischemia. The susceptibility images do not demonstrate evidence of hemosiderin deposition within the brain parenchyma or the leptomeninges. There is preservation of the rosa-white matter differentiation. There are no areas of signal abnormality within the brain parenchyma or the posterior fossa to suggest lesion. There are no areas of abnormal enhancement after IV contrast administration. The sulci and ventricles are within normal limits without evidence of hydrocephalus. The basal ganglia are within normal limits. The midline structures are intact, the corpus callosum is within normal limits. The region of the pineal gland and the sella turcica are unremarkable. Temporal lobes and specifically the hippocampi are symmetric. There are no space-occupying lesions in the posterior fossa. The basilar cisterns are patent. The craniocervical junction is unremarkable. The visualized portions of the orbits are within normal limits, the globes are intact. The visualized portions of the paranasal sinuses are within normal limits. The calvarium and soft tissues are unremarkable. IMPRESSION: There are no acute intracranial changes, no evidence of ischemia or hemorrhage. There are no regions of signal abnormality. There are no areas of abnormal enhancement after contrast administration. Interpreted by: David Winter MD Signed by: David Winter MD 05/09/20 Final result Normal [facility] CBC With Platelet and Differ entialon 04-19-2020 Basophils (Bld) [#/Vol] 0.1 10*3/uL Normal 0.0-0.2 [facility] Comment on above: Performed By: #### C BCWD #### [facility] [address] [place] [address] Basophils/100 WBC (Bld) 0.4 % Normal M [facility] Comment on above: Performed By: #### C BCWD #### [facility] [address] [place] [address] Eosinophils (Bld) [#/Vol] 0.5 10*3/uL Normal 0.0-0.7 [facility] Comment on above: Performed By: #### C BCWD #### [facility] [address] [place] [address] Eosinophils/100 WBC (Bld) 4.2 % Normal [facility] Comment on above: Performed By: #### C BCWD #### [facility] [address] [place] [address] Erythrocyte distribution width (RBC) [Ratio] 12.5 % Normal 11.5-14.5 [facility] Comment on above: Performed By: #### C BCWD #### [facility] [address] [place] [address] Hematocrit (Bld) [Volume fraction] 39.4 % Normal 37.0-47.0 [facility] Comment on above: Performed By: #### C BCWD #### [facility] [address] [place] [address] Hemoglobin (Bld) [Mass/Vol] 13.3 g/dL Normal 12.0-16.0 [facility] Comment on above: Performed By: #### C BCWD #### [facility] [address] [place] [address] Lymphocytes (Bld) [#/Vol] 3.2 10*3/uL Normal 1.0-4.8 [facility] Comment on above: Performed By: #### C BCWD #### [facility] [address] [place] [address] Lymphocytes/100 WBC (Bld) 26.9 % Normal [facility] Comment on above: Performed By: #### C BCWD #### [facility] [address] [place] [address] MCH (RBC) [Entitic mass] 29.8 pg Normal 27.0-31.3 [facility] Comment on above: Performed By: #### C BCWD #### [facility] [address] [place] [address] MCHC (RBC) [Mass/Vol] 33.8 % Normal 33.0-37.0 [facility] Comment on above: Performed By: #### C BCWD #### [facility] [address] [place] [address] MCV (RBC) [Entitic vol] 88.4 fL Normal 82.0-100.0 [facility] Comment on above: Performed By: #### C BCWD #### [facility] [address] [place] [address] Monocytes (Bld) [#/Vol] 0.8 10*3/uL Normal 0.2-0.8 [facility] Comment on above: Performed By: #### C BCWD #### [facility] [address] [place] [address] Monocytes/100 WBC (Bld) 6.8 % Normal M [facility] Comment on above: Performed By: #### C BCWD #### [facility] [address] [place] [address] Neutrophils (Bld) [#/Vol] 7.3 10*3/uL Critically high 1.4-6.5 [facility] Comment on above: Performed By: #### C BCWD #### [facility] [address] [place] [address] Neutrophils/100 WBC (Bld) 61.7 % Normal [facility] Comment on above: Performed By: #### C BCWD #### [facility] [address] [place] [address] Platelets (Bld) [#/Vol] 314 10*3/uL Normal 130-400 [facility] Comment on above: Performed By: #### C BCWD #### [facility] [address] [place] [address] RBC (Bld) [#/Vol] 4.45 10*6/uL Normal 4.20-5.40 [facility] Comment on above: Performed By: #### C BCWD #### [facility] [address] [place] [address] WBC (Bld) [#/Vol] 11.9 10*3/uL Critically high 4.8-10.8 [facility] Comment on above: Performed By: #### C BCWD #### [facility] [address] [place] [address] CT HEAD WO CONTRASTon 2019 CT HEAD WO CONTRAST COMPARISON: No prior studies available for comparison. HISTORY: seizure TECHNIQUE: The study was performed without contrast FINDINGS: No acute hemorrhage or extra-axial fluid collection seen. The ventricular system is midline with no evidence for hydrocephalus. No wide vessel territory stroke seen. The visualized paranasal sinuses and orbits appear unremarkable. No lytic or blastic changes seen in the calvarium. IMPRESSION: No acute hemorrhage or extra-axial fluid collection is seen Consider CT with contrast or MRI for new onset seizures. All CT scans at this facility use dose modulation, iterative reconstruction, and/or weight based dosing when appropriate to reduce radiation dose to as low as reasonably achievable. Interpreted by: Jayce De Jesus DO Signed by: Jayce De Jesus DO 04/19/20 Final result Normal [facility] Comprehensive Metabolic Pane crescencio 04-19-2020 Albumin [Mass/Vol] 4.9 g/dL Critically high 3.5-4.6 M [facility] Comment on above: Performed By: #### C MP #### [facility] [address] [place] [address] ALP [Catalytic activity/Vol] 40 U/L Normal 40-130 [facility] Comment on above: Performed By: #### C MP #### [facility] [address] [place] [address] ALT [Catalytic activity/Vol] 17 U/L Normal 0-33 [facility] Comment on above: Performed By: #### C MP #### [facility] [address] [place] [address] Anion gap [Moles/Vol] 14 mmol/L Normal 9-15 [facility] Comment on above: Performed By: #### C MP #### [facility] [address] [place] [address] AST [Catalytic activity/Vol] 17 U/L Normal 0-35 [facility] Comment on above: Performed By: #### C MP #### [facility] [address] [place] [address] Bilirubin [Mass/Vol] mg/dL Normal 0.2-0.7 [facility] Comment on above: Performed By: #### C MP #### [facility] [address] [place] [address] Calcium [Mass/Vol] 10.0 mg/dL Critically high 8.5-9.9 [facility] Comment on above: Performed By: #### C MP #### [facility] [address] [place] [address] Chloride [Moles/Vol] 101 mmol/L Normal 95-107 [facility] Comment on above: Performed By: #### C MP #### [facility] [address] [place] [address] CO2 [Moles/Vol] 24 mmol/L Normal 20-31 [facility] Comment on above: Performed By: #### C MP #### [facility] [address] [place] [address] Creatinine [Mass/Vol] 0.87 mg/dL Normal 0.50-0.90 [facility] Comment on above: Performed By: #### C MP #### [facility] [address] [place] [address] GFR/1.73 sq M predicted among blacks MDRD (S/P/Bld) [Vol rate/Area] mL/min/{1.73_m2} Normal >60 [facility] Comment on above: Result Comment: >60 mL/min/1.73m2 EGFR, calc. for ages 18 and older using the MDRD formula (not corrected for weight), is valid for stable renal function. Performed By: #### C MP #### [facility] [address] [place] [address] GFR/1.73 sq M.predicted MDRD (S/P/Bld) [Vol rate/Area] mL/min/{1.73_m2} Normal >60 [facility] Comment on above: Result Comment: >60 mL/min/1.73m2 EGFR, calc. for ages 18 and older using the MDRD formula (not corrected for weight), is valid for stable renal function. Performed By: #### C MP #### [facility] [address] [place] [address] Globulin (S) [Mass/Vol] 3.1 g/dL Normal 2.3-3.5 M [facility] Comment on above: Performed By: #### C MP #### [facility] [address] [place] [address] Glucose [Mass/Vol] 94 mg/dL Normal 70-99 [facility] Comment on above: Performed By: #### C MP #### [facility] [address] [place] [address] Potassium [Moles/Vol] 3.9 mmol/L Normal 3.4-4.9 [facility] Comment on above: Performed By: #### C MP #### [facility] [address] [place] [address] Protein [Mass/Vol] 8.0 g/dL Normal 6.3-8.0 [facility] Comment on above: Performed By: #### C MP #### [facility] [address] [place] [address] Sodium [Moles/Vol] 139 mmol/L Normal 135-144 [facility] Comment on above: Performed By: #### C MP #### [facility] [address] [place] [address] Urea nitrogen [Mass/Vol] 12 mg/dL Normal 6-20 [facility] Comment on above: Performed By: #### C MP #### [facility] [address] [place] [address] Lactic Acidon 04-19-2020 Lactate [Moles/Vol] 1.8 mmol/L Normal 0.5-2.2 [facility] Comment on above: Performed By: #### L ACID #### [facility] [address] [place] [address] Prolactinon 04-19-2020 Prolactin 160.8 ng/mL Normal [facility] Comment on above: Result Comment: Defa ult Normal Ranges Female Male Non: 4.8-23.3 4.0-15.2 Performed By: #### P JAISON #### [facility] [address] [place] [address] Serum HCG Qualitativeon HCG.beta subunit Qn Negative Normal [facility] Comment on above: Performed By: #### S HCG #### [facility] [address] [place] [address] Urinalysis, reflex to cultur emily 04-19-2020 Urine Reflexed to Culture Not Indicated Normal [facility] Comment on above: Performed By: #### U AR #### [facility] [address] [place] [address] Bilirubin Ql (U) Negative Normal Negative [facility] Comment on above: Performed By: #### U AR #### [facility] [address] [place] [address] Clarity (U) Clear Normal Clear [facility] Comment on above: Performed By: #### U AR #### [facility] [address] [place] [address] Color (U) Yellow Normal Straw/[place] [facility] Comment on above: Performed By: #### U AR #### [facility] [address] [place] [address] Glucose Ql (U) Negative Normal Negative [facility] Comment on above: Performed By: #### U AR #### [facility] [address] [place] [address] Hemoglobin Ql (U) Trace-intact Normal Negative [facility] Comment on above: Performed By: #### U AR #### [facility] [address] [place] [address] Ketones Ql (U) Negative Normal Negative [facility] Comment on above: Performed By: #### U AR #### [facility] [address] [place] [address] Leukocyte esterase Test strip Ql (U) Negative Normal Negative [facility] Comment on above: Performed By: #### U AR #### [facility] [address] [place] [address] Nitrite Ql (U) Negative Normal Negative [facility] Comment on above: Performed By: #### U AR #### [facility] [address] [place] [address] pH (U) 6.0 [pH] Normal 5.0-9.0 [facility] Comment on above: Performed By: #### U AR #### [facility] [address] [place] [address] Protein Ql (U) Negative Normal Negative [facility] Comment on above: Performed By: #### U AR #### [facility] [address] [place] [address] Specific gravity (U) [Rel density] 1.020 Normal 1.005-1.03 [facility] Comment on above: Performed By: #### U AR #### [facility] [address] [place] [address] Urobilinogen Qn (U) 0.2 {Alan'U}/dL Normal < 2.0 [facility] Comment on above: Performed By: #### U AR #### [facility] [address] [place] [address] Urine Microscopicon 04-19-20 20 Epithelial cells LM Ql (Urine sed) 0-2 Normal [facility] Comment on above: Performed By: #### U ARELY #### [facility] [address] [place] [address] RBC (U) [#/Vol] 0-2 Normal 0-2 [facility] Health Comment on above: Performed By: #### U ARELY #### [facility] [address] [place] [address] WBC (U) [#/Vol] 0-2 Normal 0-5 [facility] Comment on above: Performed By: #### U ARELY #### [facility] [address] [place] [address] CBC Auto Differentialon 10-0 -2020 Basophils (Bld) [#/Vol] 0.1 10*3/uL 0 - 0.2 K/u L [facility], [place] Basophils/100 WBC (Bld) 0.4 % M [facility], [place] Eosinophils (Bld) [#/Vol] 0.5 10*3/uL 0 - 0.7 K/uL [facility], [place] Eosinophils/100 WBC (Bld) 4.2 % [place], [place] Erythrocyte distribution width (RBC) [Ratio] 12.5 % 11.5 - 14.5 % [place] Hematocrit (Bld) [Volume fraction] 39.4 % 37 - 47 % [place] Hemoglobin (Bld) [Mass/Vol] 13.3 g/dL 12 - 16 g/dL [place] Interpretation and review of laboratory results Abnormal [place] Lymphocytes (Bld) [#/Vol] 3.2 10*3/uL 1 - 4.8 K/uL [place] Lymphocytes/100 WBC (Bld) 26.9 % [place] MCH (RBC) [Entitic mass] 29.8 pg 27 - 31.3 pg [place] MCHC (RBC) [Mass/Vol] 33.8 % 33 - 37 % [place] MCV (RBC) [Entitic vol] 88.4 fL 82 - 100 fL [place] Monocytes (Bld) [#/Vol] 0.8 10*3/uL 0.2 - 0.8 K /uL [place] Monocytes/100 WBC (Bld) 6.8 % [place] Neutrophils Absolute 7.3 K/uL High 1.4 - 6.5 K/uL [place] Neutrophils/100 WBC (Bld) 61.7 % [place] Platelets (Bld) [#/Vol] 314 10*3/uL 130 - 400 K /uL [place] RBC (Bld) [#/Vol] 4.45 10*6/uL [place] WBC (Bld) [#/Vol] 11.9 10*3/uL High 4.8 - 10.8 K/uL [place] Comprehensive Metabolic Pane crescencio 04-18-2020 Albumin [Mass/Vol] 4.9 g/dL High 3.5 - 4.6 g/dL [place] ALP [Catalytic activity/Vol] 40 U/L 40 - 130 U/L [place] ALT [Catalytic activity/Vol] 17 U/L 0 - 33 U/L [place] Anion gap [Moles/Vol] 14 mmol/L [place] AST [Catalytic activity/Vol] 17 U/L 0 - 35 U/L [place] Bilirubin Ql (U) <0.2 0.2 - 0.7 mg/dL [place] Calcium [Mass/Vol] 10.0 mg/dL High 8.5 - 9.9 mg/dL [place] Chloride [Moles/Vol] 101 mmol/L [place] CO2 [Moles/Vol] 24 mmol/L [place] Creatinine [Mass/Vol] 0.87 mg/dL 0.5 - 0.9 mg/dL [place] GFR >60.0 >60 [place] Comment on above: >60 mL/min/1.73m2 EG FR, calc. for ages 18 and older using the MDRD formula (not corrected for weight), is valid for stable renal function. GFR Non- >60.0 >60 [place] Comment on above: >60 mL/min/1.73m2 EG FR, calc. for ages 18 and older using the MDRD formula (not corrected for weight), is valid for stable renal function. Globulin (S) [Mass/Vol] 3.1 g/dL 2.3 - 3.5 g/ dL [place] Glucose [Mass/Vol] 94 mg/dL 70 - 99 mg/dL [place] Interpretation and review of laboratory results Abnormal [place] Potassium [Moles/Vol] 3.9 mmol/L [place] Protein [Mass/Vol] 8.0 g/dL 6.3 - 8 g/dL [place] Sodium [Moles/Vol] 139 mmol/L [place] Urea nitrogen [Mass/Vol] 12 mg/dL 6 - 20 mg/dL [place] HCG Qualitative, Serumon hCG Qual Negative [place] Lactic Acid, Plasmaon 2019 Lactate [Moles/Vol] 1.8 mmol/L 0.5 - 2. 2 mmol/L [place] Microscopic Urinalysison Epithelial Cells, UA 0-2 /HPF [place] RBC (U) [#/Vol] 0-2 [place] WBC, UA 0-2 [place] Urine Reflex to Cultureon Bilirubin Urine Negative Negative [place] Blood, Urine Trace-intact Negative [place] Clarity, UA Clear Clear [place] Color, UA Yellow Straw/Yellow [place] Glucose, Ur Negative Negative mg/dL [place] Ketones Ql (U) Negative Negative mg/dL [place] Leukocyte esterase Test strip Ql (U) Negative Negative [place] Nitrite, Urine Negative Negative [place] pH, UA 6.0 [place] Protein (U) [Mass/Vol] Negative Negative mg/d L [place] Specific [place], UA 1.020 [place] Urine Reflex to Culture Not Indicated [place] Urobilinogen, Urine 0.2 <2.0 E.U./dL [place] ECHOCARDIOGRAPHY REPORT (HL) on 05-10-2017 ECHOCARDIOGRAPHY REPORT (HL) [facility] [id number] [id number] VASCULAR LABReferring: Koffi Uriarte A.Reading: CURTIS GARCIA Transthora cic EchocardiogramECHOALL - ECHO COMPLETE WITH 2D M MODE DOP CLR (1)CHEST PAIN: 126/76Chambers MMAo root diameter (MM) 2.6 cmAV cusp separation (MM) 1.9 cmChambers 2DRVIDd 2D 2.78 cmIVSd (2D) 0.824 cmLVPWd (2D) 1.02 cmLVIDd (2D) 4.14 cmLVIDs (2D) 2.93 cmLA dimension 2D 3 cmVolumes/MassLA Area 2 CH 13.5 cm2LA Area 4 CH 16.1 cm2LA Volume Indexed 21.05 ml/h0Xvcocxjtp/Systoli c FunctionMV E-wave Vmax 0.884 m/secMV deceleration time 193 msecMV A-wave Vmax 0.494 m/secLV septal e' Vmax 0.115 m/secLV lateral e' Vmax 0.189 m/secLV E:e' septal ratio 7.7 ratio [facility] [id number] [place] [address] [id number] 93Jackie Uriarte MDECHOCARDIOGRAPHY REPORTLV E:e' lateral ratio 4.7 ratioAortic ValveAV Vmax 1.42 m/secAV peak gradient 8 mmHgLVOT Vmax 0.913 m/secLVOT peak gradient 3 mmHgAscending Ao 2.8 cmTricuspid ValveTR Vmax 2.19 m/secTR peak gradient 19 mmHgRAP 3 mmHgRVSP 22 mmHgProcedure Info:The exam was completed at 10:17 AMLeft Ventricle:The left ventricular chamber size is normal. There is no leftventricular hypertrophy. The estimated ejection fraction is 60-65percent. Normal left ventricular diastolic function is observed.Left Atrium:The left atrial chamber size is normal.Right Ventricle:The right ventricle wall thickness is normal. The right ventricularcavity size is normal.Right Atrium:The right atrial cavity size is normal. There is no patent foramen ovalevisualized.Aortic Valve:The aortic valve is trileaflet. Systolic excursion of the aortic valveis normal.Mitral Valve:The mitral valve leaflets appear normal. There is no evidence of mitralregurgitation.Tr icuspid Valve:The tricuspid valve leaflets are normal. There is no evidence oftricuspid valve regurgitation.Pulmonic Valve:The pulmonic valve is normal in structure. There is no evidence ofpulmonic regurgitation. [facility] [id number] [place] [address] [id number] 93Jackie Uriarte MDECHOCARDIOGRAPHY REPORTPericardium:Ther e is no pericardial effusion seen.Aorta:The aortic root appears normal. The proximal ascending aorta appearsnormal. The aortic arch appears normal.Pulmonary Artery:The main pulmonary artery appears normal.Venous:The inferior vena cava is normal with respiratory variations. There is agreater than 50% respiratory change in the inferior vena cava dimension.1. There is normal LV systolic and diastolic function.2. No chamber enlargement seen.3. Normal valve function.This is a normal echocardiogram.PARAS CHOW05/10/2017 10:26:53 [facility] [id number] [place] [address] [id number] 93Jackie roper MDECHOCARDIOGRAPHY REPORT Normal [facility] [place], [place] BASIC METABOLIC PANELon 10-1 Anion gap 10 mmol/L Normal - [facility] [place], [place] Comment on above: Order Comment: Is pa tient fasting? YES Performed By: #### L BMP, LGFRP ####[facility] [address]vfkcoh99992 [place] [address] Calcium 9.6 mg/dL Normal 8.6-10.3 [facility] [place], [place] Comment on above: Order Comment: Is pa tient fasting? YES Performed By: #### L BMP, LGFRP ####[facility] [address]udvb[address] [place] [address] Chloride 101 mmol/L Normal 98-107 [facility] [place], [place] Comment on above: Order Comment: Is pa tient fasting? YES Performed By: #### L BMP, LGFRP ####[facility] Mfixhdjqsd36092 [place] [address] CO2 27 mmol/L Normal 21-32 [facility] [place], [place] Comment on above: Order Comment: Is pa tient fasting? YES Performed By: #### L BMP, LGFRP ####[facility] [address]ukxr[address] [place] [address] Creatinine 0.74 mg/dL Normal 0.5-1.05 [facility] [place], [place] Comment on above: Order Comment: Is pa tient fasting? YES Performed By: #### L BMP, LGFRP ####[facility] [address]ffiwqozix99[address] [place] [address] Glucose mass conc 82 mg/dL Normal 74-99 [facility] Comment on above: Order Comment: Is pa tient fasting? YES Performed By: #### L BMP, LGFRP ####[facility] Gfwfeezgtt48491 [place] [address] Potassium molar conc 4.1 mmol/L Normal 3.5-5.3 [facility] Comment on above: Order Comment: Is pa tient fasting? YES Performed By: #### L BMP, LGFRP ####[facility] Cgnjdzvecz99056 [place] [address] Sodium 134 mmol/L Low 136-145 [facility] [place], [place] Comment on above: Order Comment: Is pa tient fasting? YES Performed By: #### L BMP, LGFRP ####[facility] Msfsxralms84257 [place] [address] Urea nitrogen 14 mg/dL Normal 6-23 [facility] [place], [place] Comment on above: Order Comment: Is pa tient fasting? YES Performed By: #### L BMP, LGFRP ####[facility] [address] [place] [address] CBC AUTOon 05-04-2017 Erythrocyte distribution width Auto Ratio (RBC) 12.8 % Normal 11.5-14.5 [facility] [place], [place] Comment on above: Performed By: #### L CBC ####[place] [id number] Erythrocytes (RBC) 4.65 10*6/uL Normal 3.5-5.5 [facility] Comment on above: Performed By: #### L CBC ####[place] [id number] Hematocrit (HCT) 41.1 % Normal 36.0-48.0 [facility] Comment on above: Performed By: #### L CBC ####[place] [id number] Hemoglobin mass conc (Bld) 13.8 g/dL Normal 12.0-15.0 [facility] [place], [place] Comment on above: Performed By: #### L CBC ####[facility] [id number] [place], [place] [id number] MCH 29.7 pg Normal 25.4-34.6 [facility] [place], [place] Comment on above: Performed By: #### L CBC ####[facility] [address] [place], [place] [id number] MCHC mass conc (RBC) 33.6 g/dL Normal 30.0-36.0 [facility] Comment on above: Performed By: #### L CBC ####[facility] [address] [place] [address] MCV 88.4 fL Normal 79.0-98.0 [facility] [place], [place] Comment on above: Performed By: #### L CBC ####[place] [id number] Platelet mean volume (PMV) 9.3 fL Normal 8.4-11.9 [facility] [place], [place] Comment on above: Performed By: #### L CBC ####[place] [id number] Platelets 277 10*3/uL Normal 140-440 [facility] [place], [place] Comment on above: Performed By: #### L CBC ####[facility] S[address]oxvlr05372 [place] [address] WBC (Leukocytes) 6.1 10*3/uL Normal 3.9-11.0 [facility] Comment on above: Performed By: #### L CBC ####[facility] Gdgmuiehxw28335 [place] [address] GLOMERULAR FILTRATION RATE E STon 05-04-2017 eGFR (non-black) mL/min/{1.73_m2} Normal > 60 [facility] Comment on above: Order Comment: Is pa tient fasting? YES Performed By: #### L BMP, LGFRP ####[facility] [address]alql[address] [place] [address] IF AMER > 90 Normal > 60 [facility] Comment on above: Order Comment: Is pa tient fasting? YES Result Comment: Effe ctive 12/12/14:CKD-EPI equation / based on IDMS traceable creatinine.Continue to use the CREAT CLR-DOSE ([place]-Gault)value for determining medication dose. Performed By: #### L BMP, LGFRP ####[facility] [address]cz[address]ided[address] [place] [address] Vital Signs Date Time Vital Sign Value Performing Clinician Yael murguia 07-31-2022 10:54-0500 Body height 175.26 cm Koffi Clementeson Work Phone: [employer] Work Phone: 07-31-2022 10:54-0500 Body mass index (BMI) [Ratio] 31.01 kg/m2 Koffi Alison Uriarte Work Phone: [employer] Work Phone: 07-31-2022 10:54-0500 Body surface area Derived from formula 2.11 m2 Koffi Rosas Chapito Work Phone: [employer] Work Phone: 07-31-2022 10:54-0500 Body temperature 97.6 [degF] Koffi Uriarte Work Phone: FL-DHEZ-Ucwy [place] Work Phone: 07-31-2022 10:54-0500 Body weight 95.26 kg Koffi Uriarte Work Phone: QF-ELQW-Qvlt [place] Work Phone: 07-31-2022 10:54-0500 Diastolic blood pressure 87 mm[Hg] Koffi Uriarte Work Phone: IZ-BLPE-Zjwn [place] Work Phone: 07-31-2022 10:54-0500 Heart rate 76 /min Koffi Uriarte Work Phone: XC-TBOJ-Pkmc [place] Work Phone: 07-31-2022 10:54-0500 Respiratory rate 18 /min Koffi Uriarte Work Phone: WL-HDJR-Bmxo [place] Work Phone: 07-31-2022 10:54-0500 Systolic blood pressure 121 mm[Hg] Koffi Uriarte Work Phone: YE-YDZV-Auhe [place] Work Phone: 12-24-2021 11:32-0400 Body height 175.26 cm Koffi Uriarte Work Phone: MW-Mwyqbgdwb-Vxrq [place] [facility] DO Work Phone: 12-24-2021 11:32-0400 Body mass index (BMI) [Ratio] 31.03 kg/m2 Koffi Uriarte Work Phone: SD-Nvzgidehn-Ppia [place] [facility] DO Work Phone: 12-24-2021 11:32-0400 Body surface area Derived from formula 2.11 m2 Koffi Uriarte Work Phone: HJ-Nsrcdkyrd-Khdb [place] [facility] DO Work Phone: 12-24-2021 11:32-0400 Body temperature 97.1 [degF] Koffi Uriarte Work Phone: [facility] DO Work Phone: 12-24-2021 11:32-0400 Body weight 95.3 kg Koffi Uriarte Work Phone: [facility] DO Work Phone: 12-24-2021 11:32-0400 Diastolic blood pressure 76 mm[Hg] Koffi Uriarte Work Phone: [facility] DO Work Phone: 12-24-2021 11:32-0400 Heart rate 54 /min Koffi Uriarte Work Phone: [facility] DO Work Phone: 12-24-2021 11:32-0400 SaO2% (BldA) [Mass fraction] 100 % Koffi Uriarte Work Phone: [facility] DO Work Phone: 12-24-2021 11:32-0400 Systolic blood pressure 114 mm[Hg] Koffi Uriarte Work Phone: [facility] DO Work Phone: 11-17-2021 13:08-0400 Body height 172.72 cm Koffi Uriarte Work Phone: GV-BZEC-Qofw [place] Work Phone: 11-17-2021 13:08-0400 Body mass index (BMI) [Ratio] 32.39 kg/m2 Koffi Uriarte Work Phone: QT-ONLK-Myoi [place] Work Phone: 11-17-2021 13:08-0400 Body surface area Derived from formula 2.1 m2 Koffi Uriarte Work Phone: PE-GWOT-Ebsg [place] Work Phone: 11-17-2021 13:08-0400 Body temperature 97 [degF] Koffi Uriarte Work Phone: AV-GCRC-Ubdo [place] Work Phone: 11-17-2021 13:08-0400 Body weight 96.62 kg Koffi Uriarte Work Phone: QW-WXAA-Hfuh [place] Work Phone: 11-17-2021 13:08-0400 Diastolic blood pressure 84 mm[Hg] Koffi Uriarte Work Phone: OQ-QPPS-Abwb [place] Work Phone: 11-17-2021 13:08-0400 Heart rate 70 /min Koffi Uriarte Work Phone: MJ-NWDQ-Axlt [place] Work Phone: 11-17-2021 13:08-0400 Respiratory rate 18 /min Koffi Uriarte Work Phone: DZ-JUJF-Oqjr [place] Work Phone: 11-17-2021 13:08-0400 SaO2% (BldA) [Mass fraction] 96 % Koffi Uriarte Work Phone: IG-PUUD-Txvq [place] Work Phone: 11-17-2021 13:08-0400 Systolic blood pressure 126 mm[Hg] Koffi Uriarte Work Phone: DM-KQLO-Pvco [place] Work Phone: 06-25-2021 10:54-0500 Body height 172.72 cm Koffi Uriarte Work Phone: KE-Sfpfqvslu-Ikzl [place] [facility] DO Work Phone: 06-25-2021 10:54-0500 Body mass index (BMI) [Ratio] 32.08 kg/m2 Koffi Uriarte Work Phone: [facility] DO Work Phone: 06-25-2021 10:54-0500 Body surface area Derived from formula 2.09 m2 Koffi Uriarte Work Phone: [facility] DO Work Phone: 06-25-2021 10:54-0500 Body temperature 97.1 [degF] Koffi Uriarte Work Phone: [facility] DO Work Phone: 06-25-2021 10:54-0500 Body weight 95.71 kg Koffi Uriarte Work Phone: [facility] DO Work Phone: 06-25-2021 10:54-0500 Diastolic blood pressure 62 mm[Hg] Koffi Uriarte Work Phone: [facility] DO Work Phone: 06-25-2021 10:54-0500 Heart rate 67 /min Koffi Uriarte Work Phone: [facility] DO Work Phone: 06-25-2021 10:54-0500 Respiratory rate 18 /min Koffi Uriarte Work Phone: [facility] DO Work Phone: 06-25-2021 10:54-0500 SaO2% (BldA) [Mass fraction] 99 % Koffi Uriarte Work Phone: [facility] DO Work Phone: 06-25-2021 10:54-0500 Systolic blood pressure 131 mm[Hg] Koffi Uriarte Work Phone: [facility] DO Work Phone: 05-20-2021 15:59-0400 Body height 172.72 cm Koffi Uriarte Work Phone: ZJ-JUVI-Gvqy [place] Work Phone: 05-20-2021 15:59-0400 Body mass index (BMI) [Ratio] 31.93 kg/m2 Koffi Uriarte Work Phone: UQ-EOWJ-Igjf [place] Work Phone: 05-20-2021 15:59-0400 Body surface area Derived from formula 2.09 m2 Koffi Uriarte Work Phone: FR-IJAG-Dbdg [place] Work Phone: 05-20-2021 15:59-0400 Body temperature 98.1 [degF] Koffi Uriarte Work Phone: QS-JOVZ-Ofkr [place] Work Phone: 05-20-2021 15:59-0400 Body weight 95.26 kg Koffi Uriarte Work Phone: JK-NHUX-Iczb [place] Work Phone: 05-20-2021 15:59-0400 Diastolic blood pressure 82 mm[Hg] Koffi Uriarte Work Phone: QV-AQUF-Lusf [place] Work Phone: 05-20-2021 15:59-0400 Heart rate 72 /min Koffi Uriarte Work Phone: CB-IJKR-Wabb [place] Work Phone: 05-20-2021 15:59-0400 Respiratory rate 16 /min Koffi Uriarte Work Phone: VP-AFDF-Ehyb [place] Work Phone: 05-20-2021 15:59-0400 Systolic blood pressure 122 mm[Hg] Koffi Uriarte Work Phone: GQ-XULX-Hpne [place] Work Phone: 12-24-2020 14:45-0400 Body height 172.72 cm Koffi Uriarte Work Phone: HL-FMKC-Uabd [place] Work Phone: 12-24-2020 14:45-0400 Body mass index (BMI) [Ratio] 30.71 kg/m2 Koffi Uriarte Work Phone: AA-ADSD-Tznd [place] Work Phone: 12-24-2020 14:45-0400 Body surface area Derived from formula 2.05 m2 Koffi Uriarte Work Phone: TF-CCVI-Sgqz [place] Work Phone: 12-24-2020 14:45-0400 Body temperature 97.8 [degF] Koffi Uriarte Work Phone: BF-VVBU-Sgpx [place] Work Phone: 12-24-2020 14:45-0400 Body weight 91.63 kg Koffi Uriarte Work Phone: QI-BZMV-Jamh [place] Work Phone: 12-24-2020 12:59-0400 Body height 172.72 cm Koffi Uriarte Work Phone: DO-SHDD-Ayju [place] Work Phone: 12-24-2020 12:59-0400 Body mass index (BMI) [Ratio] 30.71 kg/m2 Koffi Uriarte Work Phone: TA-TXWC-Opdb [place] Work Phone: 12-24-2020 12:59-0400 Body surface area Derived from formula 2.05 m2 Koffi Uriarte Work Phone: HZ-IWIK-Litf [place] Work Phone: 12-24-2020 12:59-0400 Body temperature 98.2 [degF] Koffi Uriarte Work Phone: NN-UGXI-Kwnb [place] Work Phone: 12-24-2020 12:59-0400 Body weight 91.63 kg Koffi Uriarte Work Phone: LE-YLTK-Bvmr [place] Work Phone: 12-24-2020 12:59-0400 Diastolic blood pressure 90 mm[Hg] Koffi Uriarte Work Phone: KW-MUSO-Ucxz [place] Work Phone: 12-24-2020 12:59-0400 Heart rate 75 /min Koffi Uriarte Work Phone: MP-XHWV-Obqw [place] Work Phone: 12-24-2020 12:59-0400 Respiratory rate 16 /min Koffi Uriarte Work Phone: SQ-HDSO-Wucb [place] Work Phone: 12-24-2020 12:59-0400 Systolic blood pressure 147 mm[Hg] Koffi Uriarte Work Phone: KL-JAMK-Amys [place] Work Phone: 08-14-2020 13:26-0500 BMI (Body Mass Index) 29.04 kg/m2 Koffi Uriarte NA-Aouxpuuej-Eehe [place] S[facility] DO Work Phone: 08-14-2020 13:26-0500 Body Temperature 97.5 [degF] [facility]off[facility] Uriarte [facility] Work Phone: 08-14-2020 13:26-0500 Body weight 86.64 kg Koffi Uriarte [facility] [place] [facility] Work Phone: 08-14-2020 13:26-0500 BP Diastolic 100 mm[Hg] Koffi Uriarte [facility] [place] [facility] Work Phone: 08-14-2020 13:26-0500 BP Systolic 150 mm[Hg] Koffi Uriarte MP-Neurology- [facility] DO Work Phone: 08-14-2020 13:26-0500 BSA (Body Surface Area) 2 m2 Koffi Uriarte KC-Afpjvmyvr-Zodm [place] [facility] DO Work Phone: 08-14-2020 13:26-0500 Height 172.72 cm Koffi Uriarte MP-Neurology- [facility] DO Work Phone: 05-28-2020 15:24-0500 BMI (Body Mass Index) 28.59 kg/m2 Koffi Uriarte [facility] Work Phone: 05-28-2020 15:24-0500 Body Temperature 97.6 [degF] Koffi Uriarte GQ-EBCJ-Ryrp [place] Work Phone: 05-28-2020 15:24-0500 Body weight 85.28 kg Koffi Uriarte GY-MELA-Fnpl [place] Work Phone: 05-28-2020 15:24-0500 BP Diastolic 82 mm[Hg] Koffi Uriarte JP-HFRQ-Sddp [place] Work Phone: 05-28-2020 15:24-0500 BP Systolic 122 mm[Hg] Koffi Uriarte LN-MDCC-Aciq [place] Work Phone: 05-28-2020 15:24-0500 BSA (Body Surface Area) 1.99 m2 Koffi Uriarte TA-KVLV-Qjcx [place] Work Phone: 05-28-2020 15:24-0500 Height 172.72 cm Koffi Uriarte GH-JIKF-Itnh [place] Work Phone: 05-28-2020 15:24-0500 Pulse (Heart Rate) 70 /min Koffi Uriarte MP-WSPC-[place] Work Phone: 05-28-2020 15:24-0500 Respiratory Rate 18 /min Koffi Uriarte HU-KYLT-Mbtg [place] Work Phone: 04-25-2020 16:01-0400 BMI (Body Mass Index) 28.59 kg/m2 Koffi Ruby Work Phone: 04-25-2020 16:01-0400 Body Temperature 98.6 [degF] Koffi Ruby Work Phone: 04-25-2020 16:01-0400 Body weight 85.28 kg Koffi Ruby Work Phone: 04-25-2020 16:01-0400 BP Diastolic 101 mm[Hg] Koffi Ruby Work Phone: 04-25-2020 16:01-0400 BP Systolic 154 mm[Hg] Koffi Ruby Work Phone: 04-25-2020 16:01-0400 BSA (Body Surface Area) 1.99 m2 Koffi Ruby Work Phone: 04-25-2020 16:01-0400 Height 172.72 cm Koffi Ruby Work Phone: 04-25-2020 16:01-0400 Pulse (Heart Rate) 76 /min Koffi Ruby Work Phone: 04-25-2020 16:01-0400 Respiratory Rate 16 /min Koffi Ruby Work Phone: 04-19-2020 00:00-0400 BP Diastolic 83 mm[Hg] [facility], [place] 04-19-2020 00:00-0400 BP Systolic 144 mm[Hg] [facility], [place] 04-18-2020 22:17-0400 BMI (Body Mass Index) 28.06 kg/m2 [facility], [place] 04-18-2020 22:17-0400 Body Temperature 98.91 [degF] Tu Mckenna [facility], [place] 04-18-2020 22:17-0400 Body weight 86.18 kg Tu Wright [facility], [place] 04-18-2020 22:17-0400 Height 175.3 cm [facility] 04-18-2020 22:17-0400 Pulse (Heart Rate) 105 /[facility]-2020 22:17-0400 Pulse Oximetry 97 % Tu Wright [facility], [place] 04-18-2020 22:17-0400 Respiratory Rate 16 /min [facility] Date Encounter Type Care Provider Facility Start: 06-30-2023 End: 07-01-2023 ambulatory SHIMA RODAS Not Available Start: 06-16-2023 End: 06-16-2023 ambulatory SHIMA RODAS Not Available Start: 06-01-2023 End: 06-01-2023 ambulatory SHIMA RODAS Not Available Start: 04-30-2023 End: 04-30-2023 ambulatory NEDRA CALDERON [facility] Ambulatory Start: 04-30-2023 End: 04-30-2023 Office outpatient visit 15 minutes Nedra Calderon MD Work Phone: [facility] Comment on above: Seizure (CMS/HCC) (P rimary Dx) Start: 11-25-2022 End: 11-26-[address] LISA ZIMMERMAN . Facility:[facility] Start: 11-16-2022 End: 11-17-[address] LISA ZIMMERMAN . Facility:[facility] Start: 07-31-2022 Current tobacco non- user cad cap copd pv dm Koffi Uriarte Work Phone: [employer] Work Phone: Start: 07-31-2022 Periodic preventive med est patient 18-39 yrs Koffi Uriarte Work Phone: [employer] Work Phone: Start: 07-31-[address] 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 Work Phone: CB/Gynecology Comment on above: Appointment Start: 03-18-2022 AUDIT Koffi A Rich Booshakaon Work Phone: SL-Otczyuqsk-Uovukev e SJW DO Work Phone: Start: 02-03-2022 ambulatory Brendan Blankenship PA-C Work Phone: OB/Gynecology Comment on above: Bacteria Vaginosis Start: 01-02-2022 AUDIT Koffi A Rich Booshakaon Work Phone: [facility] Work Phone: Start: 12-24-2021 Office outpatient vi sit 15 minutes Koffi A Uriarte Work Phone: HP-Fxl[facility]-Mhph[facility] [employer] DO Work Phone: Start: 11-17-2021 Office outpatient vi sit 15 minutes Koffi A Uriarte Work Phone: [facility] [place] Work Phone: Start: 09-29-2021 AUDIT Koffi A Rich ardson Work Phone: [facility] Work Phone: Start: 09-09-2021 End: 09-09-2021 ambulatory BRENADN GLASENAPP Facility:[facility] Start: 07-04-2021 End: 07-05-2021 ambulatory GE[place] DWYER [facility] [facility] Start: 07-04-2021 Encounter for gynecological examination (general) (routine) without abnormal findings [place] DWYER [facility] Start: 06-25-2021 Office outpatient vi sit 25 minutes Koffi Alison ClementeUriarte Work Phone: US-Utewpstuf-Bgjzmcr e AMANDAW DO Work Phone: Start: 05-22-2021 Chart Update Koffi Carlson ardson Work Phone: PP-UZPU-[place]h [place] Work Phone: Start: 05-20-2021 Office outpatient vi sit 25 minutes Koffi Alison Uriarte Work Phone: CV-XCMK-Ubxy [place] Work Phone: Start: 05-20-2021 Patient encounter procedure Koffi Clementeson Work Phone: GJ-GRNF-Ojhf [place] Work Phone: Start: 03-28-2021 AUDIT Koffi Alison Rich ardson Work Phone: DX-AWJE-Ynxt [place] Work Phone: Start: 12-24-2020 Chart Update Koffi Alison Rich ardson Work Phone: WM-PKBF-Fltt [place] Work Phone: Start: 12-24-2020 Office outpatient vi sit 25 minutes Koffi Alison Uriarte Work Phone: JI-DORX-Qyjq [place] Work Phone: Start: 08-14-2020 Patient encounter procedure Koffi Clementeson ZY-Wubescpot-Tzfkmuw e SJW DO Work Phone: Start: 06-11-2020 Patient encounter procedure Koffi Clementeson IK-Fdrufbxre-Whjgkot e SJW DO Work Phone: Start: 05-28-2020 Patient encounter procedure Koffiminesh Clementeson [employer] Work Phone: Start: 05-09-2020 End: 05-12-2020 Patient encounter procedure SPIKE FARRAJAN [facility] Start: 05-09-2020 End: 05-11-2020 Subsequent hospital visit by physician Madeline Frey 1 EEG Comment on above: 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) Start: 04-25-2020 Patient encounter procedure Koffi Uriarte [employer] Work Phone: Start: 04-19-2020 End: 04-19-2020 Emergency department patient visit ZAC [facility] Start: 04-18-2020 End: 04-19-2020 Emergency department patient visit Tu Curran Work Phone: [facility] Comment on above: Seizure (HCC) (Prima ry Dx) Start: 03-02-2019 Patient encounter procedure Koffi Uriarte [employer] Work Phone: Start: 05-04-2017 Ambulatory Koffi Alison [place] [place] status Koffi Uriarte Work Phone: [employer] Work Phone: Procedures Date Procedure Procedure Detail Performing Clinician Start: 12-24-2020 Thyrotropin [Units/volume] in Serum or Plasma Nedra Calderon MD Work Phone: Start: 08-14-2020 CBC W Auto Differential panel - Blood Koffi Uriarte Start: 08-14-2020 Comprehensive metabolic 2000 panel Koffi Uriarte Start: 08-14-2020 Quantitation drug not elsewhere specified Koffi Uriarte Start: 07-02-2020 Microscopic observation [Identifier] in Cervix by Cyto stain Nedra Calderon MD Work Phone: Start: 05-10-2020 Electroencephalogram SPIKE GARCIA Start: 05-10-2020 RADIOLOGY REPORT SPIKE GARCIA Start: 05-10-2020 RADIOLOGY REPORT Hpf Scanning Start: 05-09-2020 Mri brain brain stem w/o w/contrast material SPIKE GARCIA Start: 05-09-2020 Electroencephalogram w/rec awake&drowsy SPIKE GARCIA Start: 05-09-2020 Mri brain brain stem w/o w/contrast material Spike Garcia Work Phone: Start: 05-09-2020 Electroencephalogram w/rec awake&drowsy Spike Garcia Work Phone: Start: 04-19-2020 Assay of lactate ZAC ANDERSON Start: 04-19-2020 Assay of prolactin ZAC MONICA Start: 04-19-2020 Ct head/brain w/o contrast material ZAC MONICA Start: 04-19-2020 Urinalysis microscopic only ZAC VIKRAM MAXWELL Start: 04-19-2020 Urnls dip stick/tablet rgnt auto w/o microscopy ZAC MONICA Start: 04-19-2020 Blood count complete auto&auto difrntl wbc ZAC ANDERSON Start: 04-19-2020 Comprehensive metabolic panel ZAC BRITT Start: 04-19-2020 Gonadotropin chorionic qualitative ZAC ANDERSON Start: 04-19-2020 DIET NPO, NOW ZAC MONICA Start: 04-19-2020 SEIZURE PRECAUTIONS ZAC ANDERSON Start: 04-19-2020 SALINE LOCK IV ZAC ANDERSON Start: 04-18-2020 Assay of lactate Tu knutson Work Phone: Start: 04-18-2020 Urinalysis microscopic only Tu Reece [facility] Work Phone: Start: 04-18-2020 Urnls dip stick/tablet rgnt auto w/o microscopy Tu Curran Work Phone: Start: 04-18-2020 Blood count complete auto&auto difrntl wbc Tu Curran Work Phone: Start: 04-18-2020 Comprehensive metabolic panel Tu Curran Work Phone: Start: 04-18-2020 Gonadotropin chorionic qualitative Tu Curran Work Phone: History of No histor y of surgery Koffi Uriarte No history of surgery Shahnaz Uriarte Work Phone: Plan of Treatment Date Care Activity Detail Author Start: 10-02-2043 Zoster Vaccines (1 o f 2) Zoster Vaccines (1 of 2) [facility] Start: 02-17-2028 DTaP/Tdap/Td Vaccine s (8 - Td or Tdap) DTaP/Tdap/Td Vaccines (8 - Td or Tdap) [facility] Start: 08-02-2023 PHYSICAL, Provider: Koffi Uriarte, Status: Pen, Time: 9:00 AM PHYSICAL, Provider: Koffi Uriarte, Status: Pen, Time: 9:00 AM NX-JMOQ-[place]b [place] Work Phone: Start: 08-02-2023 End: 08-02-2023 Patient encounter procedure 08/02/2023 9:00 AM EST Office Visit [facility] [address] [place] [id number] [place] [address] [place] [address] [facility] Start: 07-02-2023 PAP TESTING PAP TESTING [facility] Start: 07-02-2023 Screening for malignant neoplasm of cervix [facility] Start: 12-24-2022 VIRANA LUISA, Provider : Nedra Calderon, Status: Pen, Time: 10:00 AM ERIKA, Provider: Nedra Calderon, Status: Pen, Time: 10:00 AM FN-Eyydghsxq-Srogsgi e SJW DO Work Phone: Start: 05-22-2022 PHYSICAL, Provider: Koffi Uriarte, Status: Pen, Time: 9:50 AM PHYSICAL, Provider: Koffi Uriarte, Status: Pen, Time: 9:50 AM SC-YING-Ibyv [place] Work Phone: Start: 03-24-2022 End: 05-24-2022 Choriogonadotropin.bet a subunit [Units/volume] in Serum or Plasma HCG QUANTITATIVE Lab Routine Bleeding in early Expected: 03/24/2022, Expires: 05/24/2022 [facility] Work Phone: Comment on above: Expected: 03/24/2022 , Expires: 05/24/2022 Start: 03-19-2022 Influenza vaccination INFLUENZA (#1) [facility] Start: 12-24-2021 Thyroid stimulating hormone measurement TSH Level [facility] Start: 12-24-2021 FUVGENERAL, Provider : Nedra Calderon, Status: Pen, Time: 11:30 AM FUVGENERAL, Provider: Ndera Calderon, Status: Pen, Time: 11:30 AM LL-Romojaael-Uainfsu e SJW DO Work Phone: Start: 11-17-2021 FUV, Provider: Koffi Uriarte, Status: Pen, Time: 1:00 PM FUV, Provider: Koffi Uriarte, Status: Pen, Time: 1:00 PM JS-GZJG-Nxsm [place] Work Phone: Start: 07-01-2021 COVID-19 VACCINE (3 - Booster for Pfizer series) COVID-19 VACCINE (3 - Booster for Pfizer series) [facility] Start: 06-25-2021 FUVGENERAL, Provider : Nedra Calderon, Status: Pen, Time: 2:00 PM FUVGENERAL, Provider: Nedra Calderon, Status: Pen, Time: 2:00 PM EF-CNTT-Boyr [place] Work Phone: Start: 06-25-2021 FUVGENERAL, Provider : Nedra Calderon, Status: Pen, Time: 11:00 AM FUVGENERAL, Provider: Nedra Calderon, Status: Pen, Time: 11:00 AM TD-QWST-Ylad [place] Work Phone: Start: 05-20-2021 FUV, Provider: Koffi Uriarte, Status: Pen, Time: 3:40 PM FUV, Provider: Koffi Uriarte, Status: Pen, Time: 3:40 PM QE-WBKH-Ibve [place] Work Phone: Start: 03-31-2021 FUV, Provider: Koffi Uriarte, Status: Pen, Time: 2:00 PM FUV, Provider: Koffi Uriarte, Status: Pen, Time: 2:00 PM RH-LKAA-Obzv [place] Work Phone: Start: 03-26-2021 COVID-19 Vaccine (3 - Pfizer series) COVID-19 Vaccine (3 - Pfizer series) [facility] Start: 03-19-2020 Influenza vaccination Flu vaccine (# 1) [place] Start: 03-02-2018 DTaP/Tdap/Td vaccine (7 - Td) DTaP/Tdap/Td vaccine (7 - Td) [place] Start: 03-02-2018 Urine microalbumin profile DTAP,TDAP,TD (7 - Td or Tdap) [facility] Start: 2014 Screening for malignant neoplasm of cervix [facility] Start: 10-02-2011 HEPATITIS C SCREENING HEPATITIS C [facility] Start: 10-02-2011 Hepatitis C screening Hepatitis C [facility] Start: 10-02-2011 HIV SCREENING HIV SCREENING [facility] Start: 2008 HIV screening HIV screen [place], [place] Start: 2005 Adult depression screening assessment DEPRESSION SCREENING [facility] Start: 2004 HPV vaccine (1 - 2-dose series) HPV vaccine (1 - 2-dose series) [place], [place] Start: 04-09-1999 Varicella vaccination Varicell a Vaccines (1 of 2 - 2-dose childhood series) [facility] Start: 1994 Varicella vaccine (1 of 2 - 2-dose childhood series) Varicella vaccine (1 of 2 - 2-dose childhood series) [place] Start: 1993 HIV screening HIV Screening [facility] Start: 1993 Lipid panel Lipid Panel [facility] Start: 1993 [facility]ly [facility] End[facility]2020 CT Head WO Contrast CT Head WO Contrast Imaging STAT Once for 1 Occurrences starting 04/18/2020 until 04/18/2020 [place] Comment on above: Once for 1 Occurrenc es starting 04/18/2020 until 04/18/2020 CT Head WO Contrast CT Head WO C ontrast Imaging STAT 04/18/2020 11:15 PM EDT [place] End: 04-18-2020 Prolactin Prolactin Lab STAT One Time for 1 Occurrences starting 04/18/2020 until 04/18/2020 [place] Comment on above: One Time for 1 Occur rences starting 04/18/2020 until 04/18/[address] AT 04/18/2020 11:17 PM EDT [place] RV-TPOP-Lobc La ke Work Phone: [facility] NEGATED: Highlighted row has been ruled out! Planned Goals not documented IE-JVLM-Rcwu [place] Work Phone: Immunizations Immunization Date Immunization Notes Care Provider Radha laura 04-21-2022 influenza, injectabl e, quadrivalent, preservative free Koffi A Uriarte Work Phone: YT-LWNM-Ztrr [place] Work Phone: 04-18-2021 influenza, injectabl e, quadrivalent, preservative free Koffi A Uriarte Work Phone: AT-ATDW-Tcxh [place] Work Phone: 01-29-2021 Pfizer-BioNTech COVID-19 Vacc 30 MCG/0.3ML Intramuscular Suspension Koffi A Uriarte Work Phone: WJ-DUJL-Ubrz [place] Work Phone: 01-08-2021 Pfizer-BioNTech COVID-19 Vacc 30 MCG/0.3ML Intramuscular Suspension Koffi A Uriarte Work Phone: MM-QOTL-Gfae [place] Work Phone: 05-09-2019 Influenza, injectabl e, Madin Daggett Canine Kidney, preservative free, quadrivalent Koffi A Uriarte Work Phone: CE-CQNU-Iuyw [place] Work Phone: 04-28-2018 influenza, injectabl e, quadrivalent, contains preservative Koffi Rosas Sgnam Work Phone: [employer] Work Phone: 02-16-2018 tetanus toxoid, redu diego diphtheria toxoid, and acellular pertussis vaccine, adsorbed Koffi Rosas Sgnam Work Phone: [employer] Work Phone: 05-06-2017 influenza, injectabl e, quadrivalent, preservative free Koffi Rosas Sgnam Work Phone: [employer] Work Phone: 01-14-2016 pneumococcal polysaccharide vaccine, 23 valent Koffi A Sgnam Work Phone: [employer] Work Phone: 11-30-2014 tuberculin skin test ; purified protein derivative solution, intradermal [facility], [place] 12-15-2013 tuberculin skin test ; purified protein derivative solution, intradermal [facility] 03-02-2008 tetanus toxoid, redu diego diphtheria toxoid, and acellular pertussis vaccine, adsorbed [facility] 02-25-2007 meningococcal polysaccharide (groups A, C, Y and W-135) diphtheria toxoid conjugate vaccine (MCV4P) [place], [place] 02-25-2007 Meningococcal, MCV4, unspecified conjugate formulation(groups A, C, Y and W-135) [facility] 03-12-1999 diphtheria, tetanus toxoids and acellular pertussis vaccine [facility] 03-12-1999 diphtheria, tetanus toxoids and acellular pertussis vaccine, unspecified formulation Koffi Clementeson Work Phone: [employer] Work Phone: 03-12-1999 haemophilus influenz ae type b vaccine, HbOC conjugate [facility] 03-12-1999 measles, mumps and rubella virus vaccine [facility] 03-12-1999 poliovirus vaccine, inactivated [facility], [place] 03-12-1999 trivalent poliovirus vaccine, live, oral [facility] 01-07-1995 diphtheria, tetanus toxoids and acellular pertussis vaccine [facility] 01-07-1995 diphtheria, tetanus toxoids and acellular pertussis vaccine, unspecified formulation Koffi Clementeson Work Phone: [employer] Work Phone: 10-22-1994 haemophilus influenz ae type b vaccine, conjugate unspecified formulation [place], [place] 10-22-1994 haemophilus influenz ae type b vaccine, PRP-OMP conjugate Koffi Rosas Uriarte Work Phone: [employer] Work Phone: 10-22-1994 Hib, unspecified [place] 10-22-1994 measles, mumps and rubella virus vaccine [facility] 10-22-1994 poliovirus vaccine, inactivated [facility] 06-18-1994 hepatitis B vaccine, pediatric or pediatric/adolescent dosage Koffi Alison ClementeUriarte Work Phone: [facility] 06-18-1994 hepatitis B vaccine, unspecified formulation [place], [place] 04-16-1994 diphtheria, tetanus toxoids and acellular pertussis vaccine [place] 04-16-1994 diphtheria, tetanus toxoids and pertussis vaccine [facility] 04-16-1994 haemophilus influenz ae type b vaccine, conjugate unspecified formulation [facility] 04-16-1994 haemophilus influenz ae type b vaccine, HbOC conjugate Brendan Blankenship PA-C Work Phone: [facility] 04-16-1994 haemophilus influenz ae type b vaccine, PRP-OMP conjugate Koffi Alison ClementeUriarte Work Phone: [employer] Work Phone: 04-16-1994 Hib, unspecified [facility] 04-16-1994 poliovirus vaccine, inactivated [facility] 04-16-1994 trivalent poliovirus vaccine, live, oral [facility] 02-12-1994 diphtheria, tetanus toxoids and acellular pertussis vaccine [facility] 02-12-1994 diphtheria, tetanus toxoids and pertussis vaccine [facility] 02-12-1994 haemophilus influenz ae type b vaccine, conjugate unspecified formulation [facility] 02-12-1994 haemophilus influenz ae type b vaccine, HbOC conjugate Brendan Glasenapp PA-C Work Phone: [facility] 02-12-1994 haemophilus influenz ae type b vaccine, PRP-OMP conjugate Koffi Alison Uriarte Work Phone: [employer] Work Phone: 02-12-1994 Hib, unspecified [facility] 02-12-1994 poliovirus vaccine, inactivated [facility] 02-12-1994 trivalent poliovirus vaccine, live, oral [facility] 01-08-1994 hepatitis B vaccine, pediatric or pediatric/adolescent dosage Koffi A Chapito Work Phone: [facility] 01-08-1994 hepatitis B vaccine, unspecified formulation [place], [place] 1993 diphtheria, tetanus toxoids and acellular pertussis vaccine [place], [place] 1993 diphtheria, tetanus toxoids and pertussis vaccine [facility] 1993 haemophilus influenz ae type b vaccine, conjugate unspecified formulation [facility], [place] 1993 haemophilus influenz ae type b vaccine, HbOC conjugate Brendan Glasenapp PA-C Work Phone: [facility] 1993 haemophilus influenz ae type b vaccine, PRP-OMP conjugate Koffi A Chapito Work Phone: [employer] Work Phone: 1993 hepatitis B vaccine, pediatric or pediatric/adolescent dosage Koffi A Uriarte Work Phone: [facility] 1993 hepatitis B vaccine, unspecified formulation [facility] , [place] 1993 Hib, unspecified [facility], [place] 1993 poliovirus vaccine, inactivated [facility] 1993 trivalent poliovirus vaccine, live, oral [facility], [place] Payers Date Payer Category Payer Unknown 2020 Unknown MMO MMO [employer] [id number] 2020-Present [phone] [address] [place] [address] PPO [id number] 2019 Unknown [id number] 1993 Unknown [id number] 1993 Unknown [id number] 1993 Unknown [id number] 1993 Unknown [id number] 1993 Unknown [id number] 1993 Unknown [id number] 1993 Unknown [id number] 1993 Unknown [id number] 1993 Unknown [id number] 1993 Unknown [id number] 1993 Unknown [id number] 1959 Unknown [id number] Unknown [id number] Social History Date Type Detail Facility Start: 04-18-2020 End: 04-30-2023 Tobacco smoking status WVIS Never smoker [facility] Start: 04-18-2020 End: 04-30-2023 Tobacco use and exposure Never used [place] Start: 04-18-2020 End: 09-09-2021 Alcohol intake Current drinker of alcohol (finding) [place] Start: 09-19-2019 History SDOH Financial 5 [place] Start: 09-19-2019 History SDOH Food Worry 1 [place] Start: 09-19-2019 History SDOH Transport Med 2 [place] Start: 04-18-2020 Alcohol Comment occasionally [place], [place] Start: 1993 Sex Assigned At Not on file [place] Start: 04-20-2023 End: 04-30-2023 Exposure to SARS-CoV-2 (event) Not sure [place] Never smoker Never smoker [employer] Work Phone: Tobacco smoking status Never [facility] Sex Assigned At Female [facility] NEGATED: Highlighted row - - [employer] Work Phone: NEGATED: Highlighted rowStart: NINF History of tobacco use Passive smoker [facility] Work Phone: Functional Status Date Assessment Result Facility NEGATED: Highlighted row Functional performance Functional status health issues are not documented Disease [employer] [facility] Work Phone: Mental Status Date Assessment Result Facility NEGATED: Highlighted row Cognitive function [Interpretation] Cognitive status health issues are not documented Disease [employer] Work Phone: Clinical Notes 08-09-2017 to 04-30-2023 Nedra Calderon MD - 04/30/2023 11:30 AM EDTTelephone Encounter - Mary Onofre, RN - 03/24/2022 11:55 AM EDTTelephone Encounter - Kavita Sweet, DO - 03/24/2022 11:37 AM EDT Note Date & Type Note Facility 04-30-2023 History of Presen t illness Narrative Subjective Princess Cantu is a 27 y.o. year old female who presents for follow-up of seizures. She has had 2 seizure in the past, 04/18/2020 and then 06/04/2020. MRI brain non lesional. EEG wnl. She was started on lamotrigine and has been well controlled on 100mg BID since then. She has had no further seizures. She drives. 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 Patient Active Problem List Diagnosis Abnormal weight gain Allergic rhinitis Anxiety Bacterial vaginosis Benign essential hypertension Bilateral chronic otitis media Chest pain Chronic pansinusitis Chronic sinusitis Conductive hearing loss, bilateral Elevated BP without diagnosis of hypertension Globus sensation Hair loss Insomnia Seizure (CMS/HCC) Tonsil stone Vaginal discharge Vitamin B12 deficiency Class 1 obesity with body mass index (BMI) of 32.0 to 32.9 in adult Objective Neurological Exam Mental Status Awake, alert and oriented to person, place and time. Speech is normal. Cranial Nerves CN III, IV, : Extraocular movements intact bilaterally. CN VII: Full and symmetric facial movement. CN VIII: Hearing is normal. Motor Strength is 5/5 throughout all four extremities. Coordination Right: Obmpso-dg-ouoj normal.Left: Wjevmg-or-hmbv normal. Physical Exam Eyes: Extraocular Movements: Extraocular movements intact. Neurological: Motor: Motor strength is normal. Psychiatric: Speech: Speech normal. Assessment/Plan Diagnoses and all orders for this visit: Seizure (CMS/HCC) Will continue lamotrigine 100mg BID Ok to drive Continue ASMs at least 5-10 years, if tapers off then will need 6-12 month driving restriction and there is risk for breakthrough seizure and more difficulty to control seizures if that occurs Discussed seizure rescue medication, will hold off for now given her epilepsy control Follow-up in 1 year documented in this encounter [facility] Work Phone: 11-25-2022 Note EXAMINATION: US PELV IS TRANSVAG HISTORY: Reproductive care management COMPARISON: No relevant comparison available. FINDINGS: The uterus is anteverted. Uterus is normal in size, contour and echotexture measuring 6.9 x 3.2 x 3.8 cm. The endometrium measures 3.3 mm, normal. The right ovary measures 2.2 x 3.1 x 2.3 cm. Normal color and Doppler. Areas of anechoic echogenicity measuring up to 1.3 cm, follicles versus cysts Left ovary measures 2.2 x 2.7 x 1.9 cm. Normal color and Doppler flow. Areas of anechoic echogenicity measuring up to 1.2 cm, follicles versus cysts No free fluid IMPRESSION: No acute abnormality Electronically authenticated by: HAYLIE RIVER Date: 2022-11-25 17:20 [facility] 04-16-2022 Note HNO ID: [id number] Author: Brendan Blankenship PA-C Service: ? Author Type: Physician Underwater Hunter Trapper Type: Progress Notes Filed: 04/16/2022 8:18 AM Note Text: Princess Cantu is a 26 year old year old female. Patient presents for vaginal discharge with slight odor and irritation x a few weeks. Intermittent. Denies any itching at this time. +New partner x 3 months, did not use condoms. Requests full STI screen. LMP 03/19/22. Smoker? No Last Pap? 07/02/20, NIL History of abnormal Paps? ASCUS in 2014 Patient's last menstrual period was 03/19/2022 (approximate). FAMILY HISTORY Problem Relation Age of Onset Heart Maternal Grandmother arrhythmia Cancer Maternal Grandfather lung Asthma Father Breast Cancer Paternal Grandmother None Mother Diabetes Mother Maternal nephew/ insulin dependent Ovarian cancer No Family History Uterine Cancer No Family History OB History T0 L0 SAB0 IAB0 Ectopic0 Multiple0 Live Births0 Comment: Menarche 10 PAST MEDICAL HISTORY Diagnosis Date ASCUS of cervix with negative high risk HPV 07/02/2015 Chlamydia 04/15/2021 Seizure (HCC) 2019 PAST SURGICAL HISTORY Procedure Laterality Date NONE Current Outpatient Medications Medication Sig metroNIDAZOLE (FLAGYL) 500 mg tablet Take 1 tablet by mouth twice daily. for vaginosis. Do not drink alcohol while taking this medication lamoTRIgine (LAMICTAL) 25 mg tablet lisinopril (ZESTRIL, PRINIVIL) 10 mg tablet Take by mouth q 24 HR. No current facility-administered medications for this visit. 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 I, Brendan Blankenship, have reviewed this information as documented for accuracy and performed all elements of history taking, and edited the record as necessary. 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 NEURO: Awake, alert and oriented A/P: 26 year old y/o F here for vaginitis. 1. Vaginitis - Benign on exam 2. Screening examination for sexually transmitted disease - Accepts vaginal and serum screening - MITCH / TRICHOMONAS AMPLIFICATION - BACTERIAL VAGINOSIS AMPLIFICATION - GC/CHLAMYDIA DNA DET - SYPHILIS TOTAL W/REFLEX; Future - HIV 1 2 COMBO(AG/AB),WITH REFLEX TO DIFFERENTIATION; Future - HEP C AB IA W/CONF SCRN; Future - HEP B SURF AG SCRN; Future Brendan Blankenship PA-C Medical Decision Making: Problems: Low: Acute, uncomplicated illness or injury Data: Unique test(s) ordered: 3+ Risk: Low: Low risk from testing/treatment Medical Decision Making Level: 3 - Low [facility] 03-24-2022 Miscellaneous Notes VM left w req for RCTO please call patient back could have been a chemical will have nurse contact once blood work reviewed home test reliable if desiring OV for concerns please schedule other OV, cancel OCT new OB thanks calling today. LMP 02/11/22. Pt took HPT 03/19 d/t period being late. Pt got 3 positive tests. Scheduled New ob visit for 04/27. Pt states she started having light bleeding that has persisted for the last 4 days. Reports HPT today is negative. Pt asking about the possibility of false positives. Advised will route message to provider. Pended HCG quant. Please advise if pt to keep appt 04/27 or wait to see results of HCG and move appt sooner. documented in this encounter [facility] 03-19-2022 Miscellaneous Notes LMP 02/11, +hpt. Assisted w initial OBV. Advised to take vitamin w folic acid. First trimester precautions provided. handbook sent in . documented in this encounter [facility] 02-03-2022 Miscellaneous Notes The following approved medication requests have been transmitted electronically. Signed Prescriptions Disp Refills metroNIDAZOLE (FLAGYL) 500 mg tablet 14 tablet 0 Sig: Take 1 tablet by mouth twice daily. for vaginosis. Do not drink alcohol while taking this medication MICHELLE: No Brendan Souza APRN.LAB SCIENTIST Pt reporting vag discharge/odor- same symptoms as past +BV dx. Last annual 06/2021. Req for BV medications Pending Prescriptions Disp Refills METRONIDAZOLE 500 MG TABLET 14 tablet 0 Sig: Take 1 tablet by mouth twice daily. for vaginosis. Do not drink alcohol while taking this medication MICHELLE: No documented in this encounter [facility] 09-09-2021 Note HNO ID: [id number] Author: Brendan Blankenship PA-C Service: ? Author Type: Physician Underwater Hunter Trapper Type: Progress Notes Filed: 09/09/2021 10:17 AM Note Text: Princess Cantu is a 25 year old year old female. Patient presents for vaginal discharge with odor and irriation for a few weeks. No dysuria or itching. Smoker? No Last Pap? 07/02/20, NIL History of abnormal Paps? ASCUS in 2014 Patient's last menstrual period was 08/13/2021. FAMILY HISTORY Problem Relation Age of Onset - Heart Maternal Grandmother arrhythmia - Cancer Maternal Grandfather lung - Asthma Father - Breast Cancer Paternal Grandmother - None Mother - Diabetes Mother Maternal nephew/ insulin dependent - Ovarian cancer No Family History - Uterine Cancer No Family History Patient is identified by name and birthdate: Yes Medications were reviewed and verified. Yes Her health maintenance record has been reviewed and has been updated: Yes Is patient having any pain? No 0 on a scale of 0 to 10 OB History T0 L0 SAB0 IAB0 Ectopic0 Multiple0 Live Births0 Comment: Menarche 10 Gynecological history: History of STDs: Yes. Chlamydia 2014 and 2020 History of fibroids / cysts: No Menarche 10 years old Periods regular 28-30 every 4 days Cramps: Yes Is she on control?: No History of sexual trauma or abuse? No PAST MEDICAL HISTORY Diagnosis Date - ASCUS of cervix with negative high risk HPV 07/02/2015 - Chlamydia 04/15/2021 - Seizure (HCC) 2019 PAST SURGICAL HISTORY Procedure Laterality Date - NONE Current Outpatient Medications Medication Sig - lamoTRIgine (LAMICTAL) 25 mg tablet - lisinopril (ZESTRIL, PRINIVIL) 10 mg tablet Take by mouth q 24 HR. - ibuprofen (MOTRIN) 200 mg tablet Take 3 tablets by mouth every 8 hours as needed for Pain. No current facility-administered medications for this visit. 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 Portions of this record were documented by the Shipper. I, Brendan Blankenship, have reviewed this information as documented for accuracy and performed all elements of history taking, and edited the record as necessary. 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 NEURO: Awake, alert and oriented A/P: 25 year old y/o F here for vaginal discharge. 1. Vaginal discharge - Suspect BV - MITCH / TRICHOMONAS AMPLIFICATION - BACTERIAL VAGINOSIS AMPLIFICATION - GC/CHLAMYDIA DNA DET Rx Flagyl sent. Advised abstaining from intercourse, ETOH while on Flagyl. F/U PRN Brendan Blankenship PA-C Medical Decision Making: Problems: Low: Acute, uncomplicated illness or injury Data: Unique test(s) ordered: 3+ Risk: Low: Low risk from testing/treatment Medical Decision Making Level: 3 - Low [facility] 07-04-2021 Note HNO ID: [id number] Author: 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 APRN.LAB SCIENTIST Service: ? Author Type: Nurse Practitioner Type: Progress Notes Filed: 07/04/2021 4:39 PM Note Text: Princess is a 25 year old who presents with the following complaints: 1) here for an annual gynecologic exam 2) needs MARGAUX, diagnosed with BV and chlamydia 04/15/21. Having slight odor and discharge for the last couple weeks. Menses: cycles every 28 days and 3-4 days of flow. 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 LMP: 06/07/2021 (Exact Date), Having periods Age at Menarche: Age at First : Age at Menopause: Paper Reel Operator History Comments: Sexual Activity: Yes; Male; same partner since 2014 Contraception: No contraception data on record PAST MEDICAL HISTORY Diagnosis Date - ASCUS of cervix with negative high risk HPV 07/02/2015 - Chlamydia 04/15/2021 - Seizure (HCC) 2019 PAST SURGICAL HISTORY Procedure Laterality Date - NONE FAMILY HISTORY Problem Relation Age of Onset - Heart Maternal Grandmother arrhythmia - Cancer Maternal Grandfather lung - Asthma Father - Breast Cancer Paternal Grandmother - None Mother - Diabetes Mother Maternal nephew/ insulin dependent - Ovarian cancer No Family History - Uterine Cancer No Family History SOCIAL HISTORY Social History Tobacco Use - Smoking status: Never Smoker - Smokeless tobacco: Never Used Substance Use Topics - Alcohol use: Yes - Drug use: No REVIEW OF SYSTEMS Abdomen: No abdominal pain, nausea, vomiting, diarrhea, or constipation. No bloating, early satiety, indigestion, or increased flatulence. Bladder: No dysuria, gross hematuria, urinary frequency, urinary urgency, or incontinence. Breast: No breast lumps, nipple d/c, overlying skin changes, redness or skin retraction. Allergies and current medication updated:Yes EXAM: BP 131/86 Pulse 74 Ht 5' 8 (1.73m) Wt 211 lb (95.7kg) LMP 06/07/2021 BMI 32.09 kg/(m2). GENERAL: pleasant, female in no apparent distress HEENT: Normocephalic, atraumatic, mucus membranes moist and no lesions NECK: Supple, full range of motion, no adenopathy and thyroid normal DERMATOLOGY: Normal, without lesions, non-icteric and non-hirsute BREAST: soft, non-tender, symmetric, no dominant mass, normal nipple-areolar complex, no lymphadenopathy and no nipple discharge CHEST: Normal inspiratory effort ABDOMEN: soft, non-tender and no masses PELVIC: external genitalia normal, normal Bartholin's glands, urethra, [place]'s glands, no vulvar lesions, no cervical lesions, good vaginal support, physiologic discharge present, normal appearing perineal body and perianal region BIMANUAL: uterus normal size, shape and consistency, no adnexal masses and non-tender NEURO: alert and oriented x3,exam grossly non-focal EXTREMITIES: normal ASSESSMENT/PLAN: 1) Health maintenance: -Pap up to date 2019, next pap 2022 -Mammogram starting age 40. -Nutrition, exercise and routine health maintenance exams reviewed. 2) Contraception: condoms and withdrawal. Contraceptive options reviewed and declined, aware of risks/failure rates. 3) STD screening: Accepted STD check for Gonorrhea and Chlamydia and trichomonas. 4) Acute vaginitis - Aptima pending. Discussed perineal care: maintain oral hydration, wear loose-fitting cotton underwear (and clothing), use good roc-care with a gentle, NON-perfumed dye-FREE soap (ie, Юлия Lopez/Denise, ), same perfume/dye free type of detergents for washing undergarments, wiping [id number]-rh-wyca, sleep in loose shorts without underwear, shower immediately after intercourse/exercise, make sure perineum is gently blotted dry before dressing. Avoid scratching, scented pads/tampons/toilet papers, cranberry juice, bubble baths, and intercourse until symptoms are relieved. NO douching. If you shave, use a new razor at least twice monthly. 5) Follow up one year or sooner as needed 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 APRN.JUSTINE [facility] 08-09-2017 History of Past i llness Narrative Problem Noted Date Resolved Date NO SHOW 08/09/2017 08/09/2017 documented as of this encounter (statuses as of 02/03/2022) [facility] History of Past illness Narrative* Problem Noted Date Resolved Date NO SHOW 08/09/2017 08/09/2017 documented as of this encounter (statuses as of 03/19/2022) [facility] History of Past illness Narrative* Problem Noted Date Resolved Date NO SHOW 08/09/2017 08/09/2017 documented as of this encounter (statuses as of 03/24/2022) [facility] No data available for this section [facility] Diagnosis Acute vaginitis- Primary Vaginitis and vulvovaginitis, unspecified [facility] Diagnosis Bleeding in early - Primary Unspecified hemorrhage in early , unspecified as to episode of care [facility] Diagnosis Seizure ([facility])- Primary Other convulsions documented in this encounter [facility] Work Phone: History of Present illness Narrative* The patient states she has been doing well with her blood pressure control since the last visit. She has no comorbid illnesses. She has no significant interval events. * Symptoms: The patient is currently asymptomatic. * Less anxiety lately. Broke up with her boyfriend. * Working in [employer] at the [employer]. * BP is much improved on lisinopril. * Saw gyne for discharge. * was told she had BV and chlamydia. * took antibiotics, got better for a few weeks and now she is having discharge again and odor. no pelvic pain. [employer] Work Phone: History of Present illness Narrative* The patient states she has been doing well with her blood pressure control since the last visit. She has no comorbid illnesses. She has no significant interval events. * Symptoms: The patient is currently asymptomatic. * Less anxiety lately. Broke up with her boyfriend. * Working in [employer] at the [employer]. * BP is much improved on lisinopril. * Saw gyne for discharge. * was told she had BV and chlamydia. * took antibiotics, got better for a few weeks and now she is having discharge again and odor. no pelvic pain. [employer] Work Phone: Hospital Discharge instructions No data available for this section [facility] No data available for this section [facility] Summary Purpose Family History No Family History Records Found Mother Name Dates Details No pertinent family history( V49.89, Z78.9) Status:Active Mother Name Dates Details No pertinent family history( V49.89, Z78.9) Status:Active Mother Name Dates Details No pertinent family history( V49.89, Z78.9) Status:Active Mother Name Dates Details No pertinent family history( V49.89, Z78.9) Status:Active Unknown Family Member Name Dates Details No pertinent family history: Mother(V49.89, Z78.9) Status:Active Unknown Family Member Name Dates Details No pertinent family history: Mother(V49.89, Z78.9) Status:Active Unknown Family Member Name Dates Details No pertinent family history: Mother(V49.89, Z78.9) Status:Active Unknown Family Member Name Dates Details No pertinent family history: Mother(V49.89, Z78.9) Status:Active Unknown Family Member Name Dates Details No pertinent family history: Mother(V49.89, Z78.9) Status:Active Unknown Family Member Name Dates Details No pertinent family history: Mother(V49.89, Z78.9) Status:Active Unknown Family Member Name Dates Details No pertinent family history: Mother(V49.89, Z78.9) Status:Active Unknown Family Member Name Dates Details No pertinent family history: Mother(V49.89, Z78.9) Status:Active Unknown Family Member Name Dates Details No pertinent family history: Mother(V49.89, Z78.9) Status:Active Unknown Family Member Name Dates Details No pertinent family history: Mother(V49.89, Z78.9) Status:Active Unknown Family Member Name Dates Details No pertinent family history: Mother(V49.89, Z78.9) Status:Active Unknown Family Member Name Dates Details No pertinent family history: Mother(V49.89, Z78.9) Status:Active Unknown Family Member Name Dates Details No pertinent family history: Mother(V49.89, Z78.9) Status:Active Unknown Family Member Name Dates Details No pertinent family history: Mother(V49.89, Z78.9) Status:Active Unknown Family Member Name Dates Details No pertinent family history: Mother(V49.89, Z78.9) Status:Active Advance Directives No Advanced Directives Records FoundDocuments on File Type Date Recorded 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 ACP-Advance Directive ACP-Power of Web Marketing Coordinator Documents on File Type Date Recorded 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 ACP-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 Directive ACP-Power of Web Marketing Coordinator Documents on File Type Date Recorded 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 * Seizure (Japanese) documented in this encounter Additional Source Comments INFORMATION SOURCE (unrecogn ized section and content) DATE CREATED AUTHOR 01/11/2018 [facility] DATE CREATED AUTHOR AUTHOR'S ORGANIZ ATION 04/19/2020 [facility] DATE CREATED AUTHOR AUTHOR'S ORGANIZ ATION 05/11/2020 [facility] DATE CREATED AUTHOR AUTHOR'S ORGANIZ ATION 12/29/2020 [facility] DATE CREATED AUTHOR AUTHOR'S ORGANIZ ATION 04/14/2022 Jacques Perales [facility] DATE CREATED AUTHOR AUTHOR'S ORGANIZ ATION 04/20/2022 [facility] DATE CREATED AUTHOR AUTHOR'S ORGANIZ ATION 08/11/2022 [facility] DATE CREATED AUTHOR AUTHOR'S ORGANIZ ATION 11/29/2022 [facility] DATE CREATED AUTHOR AUTHOR'S ORGANIZ ATION 12/27/2022 [facility] DATE CREATED AUTHOR AUTHOR'S ORGANIZ ATION 05/02/2023 [facility] DATE CREATED AUTHOR AUTHOR'S ORGANIZ ATION 07/05/[address] [facility] d[facility] Specialists EPIC Reason for Visit (unrecogniz ed section and content) Status Reason Specialty Diagnoses / Procedures Referre d By Contact Referred To Contact Closed EEG Diagnoses Generalized idiopathic epilepsy and epileptic syndromes, not intractable, without status epilepticus Procedures EEG 16+ CHANNEL TELEMTERY 24HR Spike Garcia MD [address] [facility] [address] [place] [address] Mloz Eeg [address] [place] [address] Status Reason Specialty Diagnoses / Procedures Referre d By Contact Referred To Contact Closed Radiology Diagnoses Generalized idiopathic epilepsy and epileptic syndromes, not intractable, without status epilepticus Procedures MRI-BRAIN WO & W CONTRAST Spike Garcia MD [address] [facility] [address] [place] [address] Mloz Mri [address] [place] [address] Reason Comments Seizures Seizure like activit y Reason Comments Appointment Reason Comments Bleeding With Reason Comments Seizures Medication udates Source Comments (unrecognize d section and content) In the event this informatio n is protected by the Federal Confidentiality of Alcohol and Drug Abuse Patient Records regulations: The Federal rules restrict any use of the information to criminally investigate or prosecute any alcohol or drug abuse patient.[facility] the event this information is protected by the Federal Confidentiality of Alcohol and Drug Abuse Patient Records regulations: The Federal rules restrict any use of the information to criminally investigate or prosecute any alcohol or drug abuse patient.[facility] the event this information is protected by the Federal Confidentiality of Alcohol and Drug Abuse Patient Records regulations: The Federal rules restrict any use of the information to criminally investigate or prosecute any alcohol or drug abuse patient.[facility] Care Teams (unrecognized sec tion and content) Plush Weaver Relationship Specialty Start Date End Date Koffi Uriarte MD PCP - General Family Practice 08/17/16 Plush Weaver Relationship Specialty Start Date End Date Koffi Uriarte MD PCP - General Family Practice 08/17/16 Plush Weaver Relationship Specialty Start [place] [address] [place] [address] PCP - General 08/14/20 [place] [address] [place] [place] [address] PCP - MMO ACO PCP 02/16/23 FOR RECORDS PERTAINING TO PATIENTS WHO ARE OR HAVE BEEN ENROLLED IN A CHEMICAL DEPENDENCY/SUBSTANCEABUSE PROGRAM, SOME INFORMATION MAY BE OMITTED. This clinical summary was aggregated from multiple sources. Caution should be exercised in using it in the provision of clinical care. This summary normalizes information from multiple sources, and as a consequence, information in this document may materially change the coding, format and clinical context of patient data. In addition, data may be omitted in some cases. CLINICAL DECISIONS SHOULD BE BASED ON THE PRIMARY CLINICAL RECORDS. [facility] [employer] [facility]. provides no warranty or guarantee of the accuracy or completeness of information in this document.
--- NOTE | 2023-07-10 14:30 | US_ITS ---
[address] [address] Patient Name: PRINCESS CANTU MRN: [id number] date: 1995 Sex: F Assigned Patient Location: [facility] Current Patient Location: [facility] Accession/Order Number: [id number] Exam Date: 07/10/2023 14:31 Report Date: 07/11/2023 00:47 At the request of: LISA ZIMMERMAN Procedure: US OB growth EXAMINATION: US OB growth HISTORY: chronic hypertension COMPARISON: Ultrasound OB growth 06/17/2023 FINDINGS: Heart Rate: 145.1 bpm Number: 1.0 Position: BREECH Amniotic Fluid Volume: 15.1 cm Maximum Vertical Pocket: 7.0 cm BIOMETRY: BPD: 8.2 cm cm; 32 weeks 6 days; 24% HC: 30.6 cmcm; 34 weeks 1 days ; 24% AC: 29.2 cm cm; 33 weeks 1 days; 36% FL: 6.3 cm cm; 32 weeks 3 days; 12% EFW: 2100.4 grams; 23% FL/AC: 21.5 FL/BPD: 76.4 HC/AC: 1.1 GESTATIONAL AGE: Age by EDC: 33 weeks 5 days RAS by EDC: 08/23/2023 Age by US: 33 weeks 1 day RAS by US: 08/27/2023 US/US OB growth IMPRESSION: 1. Single live intrauterine with growth detailed above. Electronically authenticated by: AMERICA DRAPER Date: 07/11/2023 00:47
--- NOTE | 2023-07-10 14:30 | US_ITS ---
[address] [address] Patient Name: PRINCESS CANTU MRN: [id number] date: 1995 Sex: F Assigned Patient Location: [facility] Current Patient Location: Accession/Order Number: [id number] Exam Date: 07/10/2023 14:31 Report Date: 07/11/2023 00:18 At the request of: LISA ZIMMERMAN Procedure: US OB BPP w non-stress EXAMINATION: US OB BPP w non-stress HISTORY: LGA COMPARISON: Ultrasound OB growth 06/17/2023 TECHNIQUE: Ultrasound biophysical profile was performed in the radiology department. BREATHING MOVEMENTS: 2.0 GROSS BODY MOVEMENTS: 2.0 TONE: 2.0 QUALITATIVE AMNIOTIC FLUID VOLUME: 2.0 PRESENTATION: BREECH HEART RATE: 145.1 bpm bpm. AMNIOTIC FLUID VOLUME: 15.1 cm GESTATIONAL AGE: 33 weeks 5 days CONCLUSION: Total biophysical profile score 8.0. Electronically authenticated by: AMERICA DRAPER Date: 07/11/2023 00:18
[2023-07-10 14:54] VITALS: BP 113/63; PULSE 75
== END 2023-07-10 15:30 | disposition home or self-care (01) ==
LOC: FBCO 14:19 → FBC 14:29
PROVIDERS: Visit Provider Obstetrics & Gynecology
DX: O16.3 Unspecified maternal hypertension, third trimester (principal); Z3A.33 33 weeks gestation of pregnancy
CPT/HCPCS: 76816; 76818

== ENCOUNTER 2023-07-14 07:07 | Outpatient (OUT) | payer OTHER, SELFPAY ==
[2023-07-14 14:57] VITALS: BP 123/68; PULSE 65
== END 2023-07-14 15:14 | disposition home or self-care (01) ==
LOC: FBCO 07:07 → FBC 14:31
PROVIDERS: Visit Provider Obstetrics & Gynecology
DX: O16.3 Unspecified maternal hypertension, third trimester (principal); Z3A.00 Weeks of gestation of pregnancy not specified
CPT/HCPCS: 59025

== ENCOUNTER 2023-07-17 08:30 | Outpatient (OUT) | payer OTHER, SELFPAY ==
--- OUTSIDE RECORDS SUMMARY | 2023-07-17 08:35 | XMS_ITS | CCD ---
Author Name Unknown Address [address] [place] [address] Organization [facility] Care Team Providers Care Early Childhood Coordinator Name Role Phone Uriarte, Koffi A Unavailable [...] Unavailable Unavailable Zac Anderson Primary Care Provider [phone] Uriarte, Koffi A Unavailable Unavailable Unavailable Unavailable [...] Care Unavailabl e KAVITA SWEET Referring Unavailable SINGH, KOFFI Rosas Primary Care Unavailabl e BRENDAN BLANKENSHIP Attending Unavailable SINGH, KOFFI Rosas Primary Care Unavailabl e Unavailable Unavailable ELSIE ., DR GONZALEZ Admitting Unavailable ELSIE ., DR GONZALEZ Attending Unavailable ELSIE ., DR GONZALEZ Consulting Unavailable ELSIE ., DR GONZALEZ Admitting Unavailable ELSIE ., DR GONZALEZ Attending Unavailable FRESNO, DR HAYLIE Garcia Consulting Unavailable ELSIE ., DR GONZALEZ Consulting Talon Uriarte, Dr. Koffi Rosas Primary Care Dario Uriarte, Dr. Koffi Rosas Attending Dario Uriarte, Dr. Koffi Rosas Referring Koffi Oquendo MD Primary Care Provider Koffi Uriarte MD Unavailable NEDRA CALDERON Attending Unavailable KOFFI URIARTE Primary [facility] Unavailabl SHIMA Joyce Attending Unavailable SHIMA RODAS Attending Unavailable SHIMA RODAS Attending Unavailable SHIMA RODAS Attending Unavailable Allergies Allergy Classification Reported Allergen(s) Allergy Type Date of Onset Reaction(s) Facility (1 source) No Known Medication Allergies; Translations: [No Known Medication Allergies] Propensity to adverse reactions (disorder) [facility] Medications Current Medications Medication Drug Class(es) Dates Sig (Normalized) Sig (Original) {21 (Ethinyl Estradiol 0.02 MG / Levonorgestrel 0.1 MG Oral Tablet) / 7 (Inert Ingredients 1 MG Oral Tablet) } Pack [Orsythia 28 Day] (9 sources) Progestin, Estrogen, Progestin-containin g Intrauterine Device Start: 06-05-2019 Orsythia 100 mcg-20 mcg oral tablet 1 tab(s), Oral, Daily, 3 EA, Refill(s) [id number] Start Date: 06/05/19 Status: Ordered Start: [...] # 120 tab(s), Refills(s) 0, Pharmacy: [id number] Start Date: 06/05/19 Status: Ordered ondansetron 4 mg oral tablet (1 source) Serotonin-3 Receptor Antagonist Start: 02-11-20 23 take 2 tablets by mouth twice [...] 1 bruce, Vaginal, BID, 70 gram, Refill(s) [facility] Start Date: 06/09/19 Stop Date: 06/14/19 [...] 10-02-2022 10-02-2022 Episodic Unclassified (1 source) R07.9 33384/8 Onset: 05-04-2017 Unclassified (5 sources) Patient encounter status; Translations: [Encounter for audiology evaluation] NEGATED: Highlighted row has not occurred!Residual codes; unclassified (17 sources) Disease Episodic Results Test Name Value Interpretation Reference Range Facility DHEA SERUMon 11-20-2022 Dehydroepiandrosterone (DHEA) 656 ng/dL Normal 31-701 [facility] Comment on above: Performed By: #### D LAMAR. #### [facility] [address] [place] [address] Dr. Vish Brown ANTI-MULLERIAN HORMONEon Anti-Mullerian Hormone (AMH) 4.47 ng/mL Normal [facility] Comment on above: Result Comment: For assays employing antibodies, the possibility exists for interference by heterophile antibodies in the samples.1 1.Favio Campos Interferences in Immunoassays - still a threat. Clin. Chem. 2000; 46: 5098-0029. This test was developed and its performance characteristics determined by [employer]. It has not been cleared or approved by the Food and Drug Administration. Reference Range: Females 26 - 30y: 1.03 - 11.10 Median 4.20 AMH concentrations of >= 1.06 ng/mL is correlated with a better response to ovarian stimulation, produced more retrievable oocytes and higher odds of live according to Gabi et al. Fertility and Sterility. 2010: 94:7857-1836. The current AMH test method correlates with [...] AMH-secreting ovarian tumor. Performed By: #### L [facility] #### [facility] [address] [place] [address] Dr. Vish Brown DHEA-SULFATEon 11-17-2022 DHEA-Sulfate 449.0 ug/dL Critically high 84.8-378.0 [facility] Comment on above: Performed By: #### L [facility] #### [facility] [address] [place] [address] Dr. Vish Brown ESTRADIOLon 11-17-2022 Estradiol 34.3 pg/mL Normal [facility] Comment on above: Result Comment: Adul t Female: Follicular phase 12.5 - 166.0 Ovulation phase 85.8 - 498.0 Luteal phase 43.8 - 211.0 Postmenopausal <6.0 - 54.7 1st trimester 215.0 - >4300.0 Ele ECLIA methodology Performed By: #### E CHLOE #### [facility] [address] [place] [address] Dr. Vish Brown FSHon 11-17-2022 FSH 6.1 mIU/mL Normal [facility] Comment on above: Result Comment: Adul t Female: Follicular phase 3.5 - 12.5 Ovulation phase 4.7 - 21.5 Luteal phase 1.7 - 7.7 Postmenopausal 25.8 - 134.8 Performed By: #### L [facility] #### [facility] [address] [place] [address] Dr. Vish Brown LUTEINIZING HORMONE (LH)on 0 11-17-2022 LH 4.5 mIU/mL Normal [facility] Comment on above: Result Comment: Adul t Female: Follicular phase 2.4 - 12.6 Ovulation phase 14.0 - 95.6 Luteal phase 1.0 - 11.4 Postmenopausal 7.7 - 58.5 Performed By: #### L SUHAS #### [facility] [address] [place] [address] Dr. Vish Brown PROGESTERONEon 11-17-2022 Progesterone 0.8 ng/mL Normal [facility] Comment on above: Result Comment: Foll icular phase 0.1 - 0.9 Luteal phase 1.8 - 23.9 Ovulation phase 0.1 - 12.0 First trimester 11.0 - 44.3 Second trimester 25.4 - 83.3 Third trimester 58.7 - 214.0 Postmenopausal 0.0 - 0.1 Performed By: #### P TASNEEM #### [facility] [address] [place] [address] Dr. Vish Brown CBC AUTO DIFFon 11-16-2022 BASO # 0.0 103/ul Normal 0.0-0.1 [facility] Comment on above: Performed By: #### L BRUNA #### [facility] [address] [place] [address] Dr. Vish Brown Basophils/100 WBC (Bld) 0.5 % Normal 0.2-2.0 [facility] Comment on above: Performed By: #### L BRUNA #### [facility] [address] [place] [address] Dr. Vish Brown EO # 0.3 103/ul Normal 0.0-0.7 [facility] Comment on above: Performed By: #### L SUHAS #### [facility] [address] [place] [address] Dr. Vish Brown Eosinophils/100 WBC (Bld) 4.0 % Normal 0.9-7.0 [facility] Comment on above: Performed By: #### L BCL #### [facility] [address] [place] [address] Dr. Vish Brown Erythrocyte distribution width (RBC) [Ratio] 12.0 % Normal 11.0-15.0 [facility] Comment on above: Performed By: #### L BCL #### [facility] [address] [place] [address] Dr. Vish Brown Hematocrit (Bld) [Volume fraction] 39.1 % Normal 36.0-48.0 [facility] Comment on above: Performed By: #### L BCL #### [facility] [address] [place] [address] Dr. Vish Brown Hemoglobin (Bld) [Mass/Vol] 13.0 g/dL Normal 12.0-16.0 [facility] Comment on above: Performed By: #### L BCL #### [facility] [address] [place] [address] Dr. Vish Brown IG # 0.02 10e3/ul Normal 0.00-0.03 [facility] Comment on above: Performed By: #### L BCL #### [facility] [address] [place] [address] Dr. Vish Brown IG % 0.3 % Normal 0.0-0.5 [facility] Comment on above: Performed By: #### L BCL #### [facility] [address] [place] [address] Dr. Vish Brown LYMPH # 2.5 103/ul Normal 1.2-3.8 [facility] Comment on above: Performed By: #### L BCL #### [facility] [address] [place] [address] Dr. Vish Brown Lymphocytes/100 WBC (Bld) 32.4 % Normal 20.5-60.0 [facility] Comment on above: Performed By: #### L BCL #### [facility] [address] [place] [address] Dr. Vish Brown MANUAL DIFF REQ NO Normal [facility] Comment on above: Performed By: #### L BRUNA #### [facility] [address] [place] [address] Dr. Vish Brown MCH (RBC) [Entitic mass] 29.9 pg Normal 26.7-34.0 [facility] Comment on above: Performed By: #### L BRUNA #### [facility] [address] [place] [address] Dr. Vish Brown MCHC (RBC) [Mass/Vol] 33.2 g/dL Normal 29.9-35.2 [facility] Comment on above: Performed By: #### L BRUNA #### [facility] [address] [place] [address] Dr. Vish Brown MCV (RBC) [Entitic vol] 89.9 fL Normal 81.0-99.0 [facility] Comment on above: Performed By: #### L BRUNA #### [facility] [address] [place] [address] Dr. Vish Brown MONO # 0.6 103/ul Normal 0.3-0.8 [facility] Comment on above: Performed By: #### L BRUNA #### [facility] [address] [place] [address] Dr. Vish Brown Monocytes/100 WBC (Bld) 7.4 % Normal 1.7-12.0 [facility] Comment on above: Performed By: #### L BRUNA #### [facility] [address] [place] [address] Dr. Vish Brwon NEUT # 4.3 103/ul Normal 1.4-6.5 [facility] Comment on above: Performed By: #### L BCL #### [facility] [address] [place] [address] Dr. Vish Brown Neutrophils/100 WBC (Bld) 55.4 % Normal 43.0-75.0 [facility] Comment on above: Performed By: #### L BRUNA #### [facility] [address] [place] [address] Dr. Vish Brown Platelet mean volume (Bld) [Entitic vol] 9.0 fL Critically low 9.5-13.5 [facility] Comment on above: Performed By: #### L [facility]CL[facility] #### [facility] [address] [place] [address] Dr. Vish Brown PLT 277 103/ul Normal 150-450 [facility] Comment on above: Performed By: #### L BCLH #### [facility] [address] [address] [address] Vish Brown RBC 4.35 106/ul Normal 4.20-5.40 [facility] Comment on above: Performed By: #### L BCLH #### [facility] [address] [address] [address] Vish Brown WBC 7.7 103/ul Normal 4.0-11.0 [facility] Comment on above: Performed By: #### L BCLH #### [facility] [address] [address] [address] Vish Brown FREE T4on 11-16-2022 Free T4 [Mass/Vol] 1.08 ng/dL Normal 0.76-1.46 [facility] Comment on above: Performed By: #### F T4 #### [facility] [address] [place] [address] Dr. Vish Brown GLYCOHEMOGLOBIN A1Con 2022 ADA RECOMMENDATION SEE BELOW Normal [facility] Comment on above: Result Comment: ADA RECOMMENDED LIMIT 4.0 - 6.0 ADA THERAPEUTIC TARGET < 7.0 ACTION SUGGESTED > 7.0 Performed By: #### A 1C #### [facility] [address] [place] [address] Dr. Vish Brown Glucose [Mass/Vol] 94 mg/dL Normal [facility] Comment on above: Performed By: #### A 1C #### [facility] [address] [place] [address] Dr. Vish Brown HbA1c (Bld) [Mass fraction] 4.9 % Normal 4.5-6.2 [facility] Comment on above: Performed By: #### A 1C #### [facility] [address] [address] [address] Vish Brown PREG QUANT HCGon 11-16-2022 HCG QUANT <1 Normal [facility] Comment on above: Performed By: #### P REGQNT, TSH #### [facility] [address] [address] [address] Vish Brown HCG RANGE SEE BELOW Normal [facility] Comment on above: Result Comment: 5-50 0.2-1 WEEK 50-500 1-2 WEEKS 100-5,000 2-3 WEEKS 500-10,000 3-4 WEEKS 1,000-50,000 4-5 WEEKS 10,000-100,000 5-6 WEEKS 15,000-200,000 6-8 WEEKS 10,000-100,000 2-3 MONTHS Performed By: #### P REGQNT, TSH #### [facility] [address] [place] [address] Dr. Vish Brown TSHon 11-16-2022 TSH 2.030 uIU/mL Normal 0.358-3.740 [facility] Comment on above: Performed By: #### P REGQNT, TSH #### [facility] [address] [place] [address] Dr. Vish Brown 19-47 Yearson 07[birth year]31-2024 [age] Years Diagnoses/Problems Health Maintenance/Risks Encounter for preventive health examination (V70.0) (Z00.00) Assessed Benign essential hypertension (401.1) (I10) stable. Continue current meds Orders Benign essential hypertension Complete Blood Count; Status:Active; Requested for:31Jul2022; Perform:Lab Services - Lab To Draw (Blood Test); Due:29Oct2022;Ordered; For:Benign essential hypertension; Ordered By:Koffi Uriarte; Comprehensive Metabolic Panel; Status:Active; Requested for:31Jul2022; Perform:Lab Services - Lab To Draw (Blood Test); Due:29Oct2022;Ordered; For:Benign essential hypertension; Ordered By:Koffi Uriarte; Lipid Panel; Status:Active; Requested for:31Jul2022; Perform:Lab Services - Lab To Draw (Blood Test); Due:29Oct2022;Ordered; For:Benign essential hypertension; Ordered By:Koffi Uriarte; Provider Impressions follow up appt in 1 [...] Occasional alcohol (more content not included)... Normal [facility] Tobacco Screening.on 023 Adult depression screening assessment No [facility] Work Phone: Fall risk assessment a) No falls within the last year [facility] Work Phone: Tobacco use status CPHS b) No M [facility] Work Phone: B-HCG SerPl-aCncon 2 HCG.beta subunit Qn m[IU]/mL Normal <5.0 [facility] Comment on above: Order Comment: Speci men Type: BLOOD SPECIMENOrdering Facility: [facility] Address: [address] [place] [address] Result Comment: Soledad kyle Performed By: #### G CCT #### [address] [place] [address] BACTERIAL VAGINOSIS AMPLIFIC ATIONon 04-16-2022 Lactobacillus crispatus+gasseri+jense james + Gardnerella vaginalis + Atopobium vaginae rRNA HUMERA+probe Ql (Vag fld) Negative Normal Negative for bacterial vaginosis [facility] Comment on above: Order Comment: Speci men Type: SWAB Ordering Facility: [facility] Address: [address] [place] [address] Performed By: #### C VTV, BVAMP #### [facility] CLIA [id number] [address] [place] [address] OF [facility] C. trachomatis+N. gonorrhoea e DNA HUMERA+probe Ql (Unsp spec)on 04-16-2022 C. trachomatis DNA HUMERA+probe Ql (Unsp spec) Negative Normal Negative for Chlamydia trachomatis by amplificaton [facility] Comment on above: Order Comment: Speci men Type: SWAB Ordering Facility: [facility] Address: [address] [place] [address] Performed By: #### C VTV, BVAMP #### [facility] CLIA [id number] [address] [place] [address] OF [facility] N. gonorrhoeae DNA HUMERA+probe Ql (Unsp spec) Negative Normal Negative for Neisseria gonorrhoeae by amplification [facility] Comment on above: Order Comment: Speci men Type: SWAB Ordering Facility: [facility] Address: [address] [place] [address] Performed By: #### C VTV, BVAMP #### [facility] CLIA [id number] [address] [place] [address] OF [facility] MITCH / TRICHOMONAS AMPLIF ICATIONon 04-16-2022 MITCH / TRICHOMONAS AMPLIFICATION MITCH SPECIES GROUP RNA: Negative for Mitch species MITCH GLABRATA RNA: Negative for Mitch glabrata TRICH VAG AMPLIFICATION RNA: Negative for Trichomonas vaginalis by amplification Normal [facility] Comment on above: Performed By: #### C VTV, BVAMP #### [facility] CLIA [id number] [address] [place] [address] OF [facility] CNCOon 04-16-2022 CNCO Letter Text Letter Text Normal [facility] CNOVon 04-16-2022 CNOV Office Visit (OBGA ) PRINCESS CANTU ([id number]) 1995 F Date Time Provider Department 04/16/22 8:00 AM [facility] During your visit today, we recorded the following information about you: Pulse Blood pressure Weight Height 77/minute 134/84 91.9 kg 1.727 m Last Period 03/19/22 Brendan Blankenship PA-C 04/16/2022 8:18 AM Signed Princess [...] History Social History Narrative Single 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 I, Brendan Blankenship, have reviewed this information as documented for accuracy and performed all elements of history taking, and edited the record as necessary. 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 #:[id number] BACTERIAL VAGINOSIS AMPLIFICATION [SQBVAMP] Order #: [id number]. #:[id number] GC/CHLAMYDIA DNA DET [SQGCCAMP] Order #: [id number]. #:[id number] SYPHILIS TOTAL W/REFLEX [SQSYPHTX] Order #: [id number] FUTURE HIV 1 2 COMBO(AG/AB),WITH REFLEX TO DIFFERENTIATION [SQHIV12] Order #: [id number] FUTURE HEP C AB IA W/CONF SCRN [[id number]] Order #: [id number] FUTURE HEP B SURF AG SCRN [SQHBSAG] Order #: [id number] FUTURE Prescriptions as of 04/16/2022 - lamoTRIgine [...] Encounter Status:Closed by BRENDAN BLANKENSHIP on 04/16/22 [facility] HBV surface Ab IA Ql (S)on 0 04-16-2022 HBV surface Ag Ql (S) Negative Normal Negative [facility] Comment on above: Order Comment: Speci men Type: BLOOD SPECIMENOrdering Facility: [facility] Address: [address] [place] [address] Performed By: #### G CCT #### [place] [phone] HCV Ab Ser Qlon 04-16-2022 HCV Ab Ql (S) Negative Normal Negative [facility] Comment on above: Order Comment: Speci men Type: BLOOD SPECIMEN Ordering Facility: [facility] Address: [address] [place] [address] Result Comment: The result suggests no evidence of active infection with Hepatitis C virus. Should recent infection be suspected, repeat testing may be considered 4-6 weeks after this draw. Performed By: #### 1 [id number] #### [facility] CLIA [id number] [address] [place] [address] [place] HIV 1+2 Ab IA Qlon 2 HIV 1 and 2 Ab IA.rapid Nom Normal [facility] Comment on above: Order Comment: Speci men Type: BLOOD SPECIMENOrdering Facility: [facility] Address: [address] [place] [address] Result Comment: Test not indicated. Performed By: #### G CCT #### [place] [phone] HIV 1+2 Ab+HIV1 p24 Ag IA Ql Non-Reactive Normal Nonreactive [facility] Comment on above: Order Comment: Speci men Type: BLOOD SPECIMENOrdering Facility: [facility] Address: [address] [place], [place] [address] Performed By: #### G CCT #### [place] [phone] HIVINT Normal [facility] Comment on above: Order Comment: Speci men Type: BLOOD SPECIMENOrdering Facility: [facility] Address: [address] [place] [address] Result Comment: No e vidence of HIV-1 or HIV-2 infection. Should recent infection be suspected, repeat testing may be considered 2-3 weeks after this draw. [place] Rev. Code 3701.243(E): This information has been [...] diagnoses. Performed By: #### G CCT #### [place] [phone] Reagin and Treponema pallidu m IgG and IgM [Interp]on 04-16-2022 SYPHILIS INTERPRETATION Cannot exclude r ecent Treponemal infection if specimen collected within 7-10 days after appearance of suspect lesions or 2-3 weeks after an exposure. Clinical correlation is required. Normal [facility] Comment on above: Order Comment: Speci men Type: BLOOD SPECIMENOrdering Facility: [facility] Address: [address] [place] [address] Performed By: #### G CCT #### [place] [phone] T. pallidum IgG+IgM IA Ql (S) Non-Reactive Normal Nonreactive [facility] Comment on above: Order Comment: Speci men Type: BLOOD SPECIMENOrdering Facility: [facility] Address: [address] [place] [address] Performed By: #### G CCT #### [place] [phone] Coding Summary.on 03-27-2022 Coding Summary. [id number] Gh 0bWw+PGhlYWQ+ZW2VHAUtK 13jmPRplQ2QG6bAEY5QTME JWMQGXX3XGL0nhNB1JNuzD 2VybiAv UqliuWKcKE60IBd3IAJ7qC fwBRsnbU6tmEIaJ9f2IsEg JA54kH24BWguOTLpQcU3Cx ZpbjsgbWFy D1xfGsZfpBJdRpu+PHRhYm xlIHdpZHRoPScxMDAlJyBz pQaoWL2gCo5mOYJjJFKtpV xhcHNlOiBj i1bbGLYrKUibTZ2ipHuaI9 FmcTR7YKAjo0n3Dn31oXQ+ YMBbXNU0iJxvIJsjr116Kw Dfy9hrVLY1 hRWzZSncBDR2I79tu6M9EV BcWPXkAFA0nUJ7tN6yjQiu yaycX4RpdQAuDdJ6VDU6hJ GsiR0msPtn guvcnZ9oRqx+O17ODD2NDF LEFI8ZFqf4D2KdOveidCL+ UT31VMDePQ01pRZdiCXbr9 pjqAu2BpGt COYyCGI5aFpbGVolb2IiMT HgE58irKDfz9F9THZrfOid wRLwKcAqwWJ7yF4lZAsazl dpf8tlzdbm Tyjzk9twwj45qJ02U26cIA ygNRArWWP4QTLnOJWlpGvh mp0tyG2bYm8+REwpr2wjr1 hgbGi5KuNe KOTpzmSsoYjqJVK4n0QiJf 61B0IiyWtht3EiAvp9az69 sTAuo8M8hNM5RZyqRXLsbS 6eASmvFrQ8 EDUtCpJtpM48uGFlBUohGj 9adRqgkWydNL8aGKEpjmej AQMduJ6mUJMscTCceSjwHM 4wNTBpbjtm v006LwLmFCP4CBVzlVGbD5 AmvK8pZeLpBAGgXCYtJ7Nf gVTsBVmnN206JZcmKdJ4ND AlxqFmA6Gw JKEuvInuSuL2v0O6Af4Oq7 CuoelgAAC2RRmlGGA9TnM9 IyTnDnM7D0KbErh1EPCxaX mwMN6lQ2As GEMgggbeyhujyJE5HGBlYI YoeO86iIHcUJprVw4nw4S0 a541RLBzCPZviW83Us2pqO ogMTBwdCBU vT2ffwils4uonfhqFcAoFV XhUIj6JHa7BWVghSquMvEa ZUK0QxO9JQL5lFElyT2kuM cbmriccD3c Oyc+O15kwN2mLSJ3LCM1qq llCEGoukEeFY08QF42H3Vx PjwvdGFibGU+PGRpdiBzdH mqTD4hSiQz y6ydc7ZaECizW8TkDAYoUX mhHuv5EXFjILW1nKJ9zV0i RPZnICmtm6L2rHB2J5Ncxz Rnur9rf0ww MBDnKWgqW35uwFSof7N5DE JajJF0STJczRzzMxOrjH76 Oyc+REShrNeet0FlBgmrm1 gza6iwmPl5 ZfHeSKQeshWbxDyqJBD2d0 CoWz41B74aSSchZIFaSFGh WHHrQORebLyzmi5zxR6vMz 8+PGNvbCB3 aTX4tW7cJQTbMnK5JBhnS6 45XiYkpDYkLzmdv9jph5bt gCf4KrQvWCYzfjOdyMwsSL T3e6HsBc05 B80qUUimMHMaYWGdMUCgBZ JxuJkvxt3cvY6hNe3+PC9j d7slew95eR78pYY+PHRkIH H6yWmhFXij QTPqlB0qFAjcLiW9BHWtOo TkgO23mGNsIEzmFm3afBoo cJscKG0eGVHmpxveg198Et Qbv4gmKAZe pYDjKFfiSUA3M75jy4V6BO AmUXHtRCH1eVO8kS6nxGib bjogbGVmdDsgdmVydGljYW obERdeW342 IHRvcDsnPlBhdGllbnQgTm GjMHp4P3DzMrj9XGPyyUxe GU0diIPyWElsGd3oeRqwkI cpOF0eCLEz teutf437JfBnd2voXGKhoI ExUHnzWYT5P66pq5S0MTYq JSOhABK7zKB3xG0xcZrmqv ogbGVmdDsg mpChpBcpGJsaXOjxE737NG RvcDsnPkJpcnRoIERhdGU6 AZ45MY90eAZrd9R7dCX2F5 BhZGRpbmct xjyssJU7CWXgNUJtmV40Yy 9vrNdzJe5tMLIsQXN7XIPx hJPzZ2FcrM1oEqSeQBNwPR FtK9ZqmIYl IEaiW207HFrjLwF8ELWsnc BnN2OhOGVngIkyMqV3q6X2 Dd9ZP5I3EE20FL74mTFnk7 C5oVP1Z6Sy GJKusjfmhgbvsVC8GAIxEV BzdZ46Xq3foVqxDa6lZCMi POX7DCCioPDbM8NvdF8bHy AjMDAwMDAw E9TxrPTcHOtfS848QDqdFs K2SCTqmbFyX6XsRXNdxGzv ZaL6v0U2Ad9KFVh5WN50OF 39wWVyu3U3 rGV7B4JsFTAscrvkomvhrP V1EVTkYQIgiN66Gz4cgWwr Ue7fHBQnIZM9CJSdwMNwY0 KsjT7xThBw OTAvAWIiL0RcjRTzBDicO2 43UDqfPuJ9YEXafrCfV6Rl JIBktZlsDeX1h1E6Er9YLZ NlRK39LSZ6 uED8IJ96YY82F7IyPuqmyE FibGU+PHRhYmxlIHdpZHRo IIpkYGRiCdIluKflVF2sMe 9yZGVyLWNv nMbboMYfTpZyj9shSGWcPG xxWA3usBnwS6NvfRW8YJFl e4c4Mk90W85zT7KorLZ+PG FzxSY7rGU9 aP9jLcGmLkA1WLrvF069Xg ZoxIPlVwmgv2duo0zdhAl5 UsE1QELtvlDtuVjbQJT4f4 RiRg89S09y IHdpZHRoPSIxNSUiIHZhbG hopq6euZ2jJn4+PGNvbCB3 nMO5aZ7hDgYjOpR8SGdbP0 49InRvcCIv Wwxeg1url7vooLs8VmPbJY HavdKqgEyzPRN6w8SxGj75 L1UohUxud2XwUku0kl98lN Zop8X3wXI1 P8KoWCSzzhurxVFpkKimKN 8dZZNvtyryBCQnhZ5fMURo V5t2KdUhNqT0TDerS1Dimy T7XLNghSVl PGalQVL1H22cd9N4APTjRQ DdUZJ4iZZ9fJ4xsOviigke bGVmdDsgdmVydGljYWwtYW ujS868DEGk uCvaATLxeM7aJEWxbSZfpE byPA8vPTOwwmzlEhTYL2fe QH9UO9NGJDB9J6CoXnc1ZJ MijJdhCT3y kDHnWBmxTf8fiSoxeTquAY 5uAYAigvryURFjpQ0sAXQw oMHktYunXX3cOBBvwkqpt4 22OnGtWGE4 UAKvkWGjN1BurU2zTeYgCL NyALWgL1HufQXhQEnxJ993 XOjxFiC6ETEcmcPtP7FgNF FsaWduOiB0 z9T8Ze3bQi9yHe7fFIg7VO 94CW44hHRlf4R1bDK9X1Tb COVmtzxasnfeuHF3IKGuRA ArmU84oGYu UImmPm1jx6K6z791EUXzJL BuoM21Ce2xyJfaMBUdcWMY zL5ixxoux6dkmymnWzPdTF WdEVp7AQf6 CBBegZznYqKlRKV7TtS7UM S4dBXgwV6xtSxjistfxY5v Oyc+EingMELoqwW3X8NtIn t7OWClaKun EK6krFHnHQutHl8faAaehJ liFM1aBOJdhnmoQZOirA1r HFYvcPYbuGfvFO0aPCPedh tdo118ZwVg GHL7CFLgoWYnP2SgfF2uOx WuQQHaIWDmE2GzaSOnTUsz A014EMwlIaT5GPFvtaByN3 FsLWFsaWdu ZuI3k4Y8Fo7QOA8bzYL9G2 LoXon5JIOwvLlsNC8drIBe JBpmHj8vvAfdqFkiRT8hHP BpbjtwYWRk rS9hBWBpkDUkdAjfIO1oKE Eewsixh076PbCgKAI4IDKn zIGiR8MkdI4xZvRgWUQoQH JgQ8GmiHDd RXycD492QRpvLjK4WFAujm QcB8AiQWNyfNzrKaZ5t2T7 Nw8XiGTgODTeCX51GF25JO 15U6OqGnfh dGFibGU+PHRhYmxlIHdpZH JlZEjgNFFqVvOuqCcfCD9h Jd8uALUlNXQxgQsbaOHzGv Lqg0yfSIMv FWfgRM1hyTxiJ8HhcPZ1JL Iki7h8Ba70G47nC1NkwOY+ LFOnxPM4cES2cQ0mZlPsZe A3OBudE069 NtHraLEyEfigu5jzd0kktI f0YyXgYYEdscXujGdlHRT4 r4RzUn38N20xQDeaLLQbRI IyMCUiIHZh zYrjle3wqW2xJl0+PGNvbC B0eHG8xR2rSxIeVoV5AFcg S762DrAqbPSvCbkeT41tN2 JvdXA+PHRy Kyt8UKExcSiiIR3lfBDlVO siTt1xYTU4ZcIcYwSkVKls Z1AiVXXvaywjbkxqcJJ1PC IvLJVdeB66 Vj4njZklJt4lGLBkGWN8EM TqvWWuX8QsdX6nRrLjXXIz SLToK2CdbKMtZEyeM930QX ouPkE9XFLq jbThK1BcQWIneApvPsG3i5 H2Sw9NtInokTFpIQ8hOuOe ZRs0T9CaFqu8DWRqmXzeQP 0ncGFkZGlu Qa9ghOapsLqbWV0qAASrmq ikt665OyEui3dtZUZajFOp IJwpMPO6E65uj7P4HKHyHV WaQDW7bML7 vP9yhKkciwxjaDSgxNtgwa BosDaxWXrkCPwwY878HNHn nOrhAjGKWmk2G6YkGvy0FF MbrArrCJ2e vCXhWFlwCt8puPsveBybHP 2dBOPrsqhas191NpRvo2ok LAVvjBBzGXbeTJY0V97gs3 D3YYUdGIMv JDL9dCE1mO3gpYpncytpaM VmdDsgdmVydGljYWwtYWxp A946NQMoqVvjDa5DNek6O2 JkQsi5TGLn oUqlON8xdCYhJSbqKn9ynZ wqsAviHZ2hKXOmimwbs225 BaNqj9fvBFBjcTBxRMuhUQ X0T09tu1T2 EPIxCQMlAAY0pIH1dH0ykS lnbjogbGVmdDsgdmVydGlj JXhwGMboV682DKOymQfiBw BheWVyOjwv dGQ+XI50ed29O6VyLscfXu z2ZSOrNBH3tIX3mD7kDSEg RTmev9I5bKL9C4PugyVzqh 8ht0geWJAk ZTog (more content not included)... Normal [facility] BhCG Quanton 03-24-2022 HCG.beta subunit Qn 1 m[IU]/mL Normal 1-3 [facility] Comment on above: Result Comment: GEST ATIONAL AGE HCG RANGE (mIU/mL) NON- <1-3 0.2-1 WEEKS 5-50 1-2 WEEKS 50-500 2-3 WEEKS 100-5,000 3-4 WEEKS 500-10,000 4-5 WEEKS 1,000-50,000 5-6 WEEKS 10,000-100,000 6-8 WEEKS 15,000-200,000 8-12 WEEKS 10,000-100,000 Performed By: #### 2 [id number] #### [facility] [address] [place] [address] CHEMISTRYOrdered By: SYSTEM SYSTEM on 03-24-2022 HCG.beta subunit Qn 1 m[IU]/mL Normal 1 - 3 mIU/mL FTM C Remisol CNPDebora 03-24-2022 [facility] Telephone ([facility]) PRINCESS CANTU ([id number]) 1995 F Date Time Provider Department 03/24/22 KAVITA SWEET [facility] During your visit today, we recorded the following information about you: Vee Garner RN 03/24/2022 9:34 AM Signed calling today. LMP [...] Fully Assessed Reason for Visit: Bleeding With [47235] Primary Visit Diagnosis:Bleeding in early [O20.9] Order(s):HCG QUANTITATIVE [SQHCGQT] Order #: [id number] FUTURE Prescriptions as of 03/24/2022 - metroNIDAZOLE [...] Status:Closed by BRENDAN SOUZA on 03/24/22 Normal [facility] Consent for Treatmenton Consent for Treatment [id number] 0CD:127 [facility] Physician Orderon 03-24-2022 Physician Order [id number] 0CD:127 [facility] CNPNon 03-19-2022 CNPN Telephone ([facility]) ALONDRAANNABELN Alison ([id number]) 1995 F Date Time Provider Department 03/19/22 GEORGIA DWYER [facility] During your visit today, we recorded the [...] Status:Closed by MARY ONOFRE on 03/19/22 Normal [facility] Office Visit (Neuro-General) on 12-24-2021 Follow-up visit [...] or bowel/bladder incontinence. She was taken to [facility] in [place]. She had lab work and a CT [...] DAILY. Vitals Vital Signs Recorded: 24Dec2021 11:32AM Nlctcdkogmm80.1 F Heart Rate54 Txlokwtu972 Zlifsmnjh80 Height5 ft 9 in Qaupct916 lb 1.6 oz BMI Svbxnufmpg37.03 kg/m2 BSA Calculated2.11 Tobacco Useb) No Fall Screeninga) No falls within the last year O2 Hnpjiakmdr777, RA Physical Exam Constitutional: General appearance: no [...] 11:37AM EST (Author) Normal [employer] Tobacco Screening.on Fall risk assessment a) No falls within the last year MP-Neurolog y-Eugene SJW DO Work Phone: Tobacco use status CP b) No M P-Neurolog y-Eugene SJW DO Work Phone: Office Visit (Primary [...] Known Drug Allergies Vitals Vital Signs Recorded: 17Nov2021 01:08PM Temperature: 97 F Heart Rate: 70 [...] Nov 17 2021 1:34PM EST (Author) Normal [employer] Tobacco Screening.on 022 Adult depression screening assessment No [facility] Phone: Fall risk assessment a) No falls within the last year [facility] Phone: Tobacco use status CPHS b) No M P-[facility] 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 Portions of this record were documented by the [employer]. I, Brendan Blankenship, have reviewed this information as documented for accuracy and performed all elements of history taking, and edited the record as necessary. 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 [...] Order(s):MITCH / TRICHOMONAS AMPLIFICATION [SQCVTV] Order #: [id number] BACTERIAL VAGINOSIS AMPLIFICATION [SQBVAMP] Order #: [id number] GC/CHLAMYDIA DNA DET [SQGCCAMP] Order #: [id number] metroNIDAZOLE (FLAGYL) 500 mg tabletTake 1 tablet [...] Encounter Status:Closed (more content not included)... Normal [facility] Mitch Trich Amplon 022 Mitch glabrata RNA Negative Normal Negative [facility] Comment on above: Performed By: #### G CCT #### [place] [address] [place] [phone] Mitch sp group RNA Negative Normal Negative [facility] Comment on above: Performed By: #### G CCT #### [place] [address] [place] [phone] Trichomonas RNA Negative Normal [facility] Comment on above: Performed By: #### G CCT #### [place] [address] [place] [phone] GC/Chlamydia Amplifon 2021 Chlamydia Amplif Negative Normal [facility] Comment on above: Performed By: #### G CCT #### [place] [phone] GC Amplification Negative Normal [facility] Comment on above: Performed By: #### G CCT #### [place] [phone] GC/Chlam Amp Source Cervix Normal [facility] Comment on above: Performed By: #### G CCT #### [place] [phone] Bact Vag Amplificationon Bact Vag Amplification Negative Normal Negat ko for bacterial vaginosis [facility] Comment on above: Performed By: #### C VTV, BVAMP #### [facility] CLIA [id number] [address] [place] [address] STATES OF [facility] CNOVon 07-04-2021 CNOV [facility] PRINCESS CANTU ([id number]) 1995 F [facility] Date Time Provider Department 07/04/21 4:00 PM GEORGIA DWYER [facility] During your visit today, we recorded the following information about you: Pulse Blood pressure Weight Height 74/minute 131/86 95.7 kg 1.727 m Last Period 06/07/21 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 APRN.PACKAGING DESIGNER 07/04/2021 4:39 PM Signed Princess is a [...] Ectopic0 Multiple0 Live Births0 Comment: Menarche 10 Conduit Helper History LMP: 06/07/2021 (Exact Date), Having periods Age at Menarche: Age at First : Age at Menopause: Conduit Helper History Comments: Sexual Activity: Yes; Male; same [...] external genitalia normal, normal Bartholin's glands, urethra, Coggon's glands, no vulvar lesions, no cervical lesions, [...] type of detergents for washing undergarments, wiping maojs-nw-xubs, sleep in loose shorts without underwear, shower [...] health screening schedule is recommended by the [employer] (ACOG). Some of these tests may be ordered or performed by your primary care doctor. Pap test screening The pap test loo (more content not included)... Normal [facility] Mitch Trich Amplon 021 Mitch glabrata RNA Negative Normal Negative [facility] Comment on above: Performed By: #### C VTV, BVAMP #### [facility] CLIA [id number] [address] [place] [address] [place] Mitch sp group RNA Negative Normal Negative [facility] Comment on above: Performed By: #### C VTV, BVAMP #### [facility] CLIA [id number] [address] [place] [address] [place] Trichomonas RNA Negative Normal [facility] Comment on above: Performed By: #### C VTV, BVAMP #### [facility] CLIA [id number] [address] [place] [address] [place] GC/Chlamydia Amplifon 2020 Chlamydia Amplif Negative Normal [facility] Comment on above: Performed By: #### G CCT #### [place] [address] [place] [address] GC Amplification Negative Normal [facility] Comment on above: Performed By: #### G CCT #### [place] [address] GC/Chlam Amp Source Cervix Normal [facility] Comment on above: Performed By: #### G CCT #### [place] [phone] Tobacco Screening.on 021 Fall risk assessment a) [...] trachomatis and Neisseria gonorrhoeae testing on specific kbo-CZY-yhchmznp sample types (female urine samples) have been validated by [facility]. This laboratory is certified by CLIA to [...] trachomatis and Neisseria gonorrhoeae testing on specific lmo-VVW-vxyjrxrw sample types (female urine samples) have been validated by [facility]. This laboratory is certified by CLIA to perform high complexity testing. Samples from all other sites are not validated for this method. TSHon 12-24-2020 TSH Qn 2.30 m[IU]/L Normal 0.44 - 3.98 [facility] Comment on above: Result Comment: TSH testing is performed using different testing methodology at [facility] than at other [facility]. Direct result comparisons should only be made within the same method. Performed By: #### T SH2 #### [facility] [id number] [place] [address] TSH - Thyroid Stimulating Ho ti, Serumon 12-24-2020 TSH Qn 2.30 m[IU]/L See Below [employer] Phone: Comment on above: Reference Range: 0.4 4 - 3.98 TSH testing is performed using different testing methodology at [facility] than at other [facility]. Direct result comparisons should only be made within the same method. Tobacco Screening.on 021 Fall risk assessment a) No falls within the last year [employer] Phone: Tobacco use status CPHS b) No M [employer] Phone: CBCon 08-14-2020 Erythrocyte distribution width (RBC) [Ratio] 13.2 % Normal 11.5 - 14.5 [facility] Comment on above: Performed By: #### C BC #### [address] [address] Hematocrit (Bld) [Volume fraction] 39.5 % Normal 36.0 - 46.0 [facility] Comment on above: Performed By: #### C BC #### [address] [address] Hemoglobin (Bld) [Mass/Vol] 13.0 g/dL Normal 12.0 - 16.0 [facility] Comment on above: Performed By: #### C BC #### [address] [address] MCHC (RBC) [Mass/Vol] 32.9 g/dL Normal 32.0 - 36.0 [facility] Comment on above: Performed By: #### C BC #### [address] [address] MCV (RBC) [Entitic vol] 91 fL Normal 80 - 100 [facility] Comment on above: Performed By: #### C BC #### [address] [address] NUCLEATED RBC 0.0 /100 WBC Normal 0.0 - 0.0 [facility] Comment on above: Performed By: #### C BC #### [address] [address] Platelets (Bld) [#/Vol] 235 10*3/uL Normal 150 - 450 [facility] Comment on above: Performed By: #### C BC #### [address] [address] RBC 4.33 x10E12/L Normal 4.00 - 5.20 [facility] Comment on above: Performed By: #### C BC #### [address] [address] WBC (Bld) [#/Vol] 5.8 10*3/uL Normal 4.4 - 11.3 [facility] Comment on above: Performed By: #### C BC #### [address] [address] COMPREHENSIVE PANELon 2020 Albumin [Mass/Vol] 4.7 g/dL Normal 3.4 - 5.0 [facility] Comment on above: Performed By: #### C MP #### [address] [address] ALP [Catalytic activity/Vol] 53 U/L Normal 33 - 110 [facility] Comment on above: Performed By: #### C MP #### [address] [address] ALT [Catalytic activity/Vol] 41 U/L Normal 7 - 45 [facility] Comment on above: Result Comment: Desiree ents treated with Sulfasalazine may generate falsely decreased results for ALT. Performed By: #### C MP #### [address] [address] Anion gap [Moles/Vol] 10 mmol/L Normal 10 - 20 [facility] Comment on above: Performed By: #### C MP #### [address] [address] AST [Catalytic activity/Vol] 27 U/L Normal 9 - 39 [facility] Comment on above: Performed By: #### C MP #### [address] [place] [address] Bilirubin [Mass/Vol] 0.6 mg/dL Normal 0.0 - 1.2 [facility] Comment on above: Performed By: #### C MP #### [address] [place] [address] Calcium [Mass/Vol] 9.5 mg/dL Normal 8.6 - 10.3 [facility] Comment on above: Performed By: #### C MP #### [address] [address] Chloride [Moles/Vol] 105 mmol/L Normal 98 - 107 [facility] Comment on above: Performed By: #### C MP #### [address] [address] Creatinine [Mass/Vol] 0.93 mg/dL Normal 0.50 - 1.05 [facility] Comment on above: Performed By: #### C MP #### [address] [address] GFR- AM. >60 Normal >60 [facility] Comment on above: Result Comment: CALC ULATIONS OF ESTIMATED GFR ARE PERFORMED USING THE MDRD STUDY EQUATION FOR THE IDMS-TRACEABLE CREATININE METHODS. CLIN CHEM 2007;53:766-72 Performed By: #### C MP #### [address] [address] GFR-NON AM. >60 Normal >60 [facility] Comment on above: Performed By: #### C MP #### [address] [address] Glucose [Mass/Vol] 94 mg/dL Normal 74 - 99 [facility] Comment on above: Performed By: #### C MP #### [address] [address] HCO3 (Bld) [Moles/Vol] 28 mmol/L Normal 21 - 32 [facility] Comment on above: Performed By: #### C MP #### [address] [place] [address] Potassium [Moles/Vol] 4.4 mmol/L Normal 3.5 - 5.3 [facility] Comment on above: Performed By: #### C MP #### [address] [place] [address] Protein [Mass/Vol] 7.3 g/dL Normal 6.4 - 8.2 [facility] Comment on above: Performed By: #### C MP #### [address] [place] [address] Sodium [Moles/Vol] 139 mmol/L Normal 136 - 145 [facility] Comment on above: Performed By: #### C MP #### [address] [place] [address] Urea nitrogen [Mass/Vol] 13 mg/dL Normal 6 - 23 [facility] Comment on above: Performed By: #### C MP #### [address] [place] [address] Hematologyon 08-14-2020 Hematocrit (Bld) [Volume fraction] 39.5 % See Below -Neurolog -[facility] DO Work Phone: Comment on above: Reference Range: 36. 0 - 46.0 Hemoglobin (Bld) [Mass/Vol] 13.0 g/dL See Below -Neurolog -[facility] SJW DO Work Phone: Comment on above: Reference Range: 12. 0 - 16.0 MCV (RBC) [Entitic vol] 91 fL 80 - 100 M P-Neurolog -[facility] SJW DO Work Phone: Platelets (Bld) [#/Vol] 235 {x10E9/L} 150 - 450 -Neurolog y-Colbert SJW DO Work Phone: RBC (Bld) [#/Vol] 4.33 {x10E12/L} See Below [facility] Work Phone: Comment on above: Reference Range: 4.0 0 - 5.20 WBC (Bld) [#/Vol] 5.8 {x10E9/L} 4.4 - 11.3 MP-N eurolog y-[facility]bert SJW DO Work Phone: WBC (Bld) [#/Vol] 0.0 {/100_WBC} 0.0 - 0.0 MP- Neurolog y-[facility] SJW DO Work Phone: LAMOTRIGINE- LAMICTALon 07-20 LAMOTRIGINE- LAMICTAL 6.4 ug/mL Normal 2.5 - 15.0 [facility] Comment on above: Performed By: #### L AMOT #### [facility] [address] [address] Lamotrigine Level, Serumon 0 08-14-2020 Lamotrigine [Mass/Vol] 6.4 ug/mL 2.5 - 15.0 MP -Neurolog y-Colbert SJW DO Work Phone: Metabolic Panelon 08-14-2020 ALP [Catalytic activity/Vol] 53 U/L 33 - 110 MP-Neurolog y-Eugene SJW DO Work Phone: Anion gap [Moles/Vol] 10 mmol/L 10 - 20 MP- Neurolog y-[facility] SJW DO Work Phone: Bilirubin [Mass/Vol] 0.6 mg/dL 0.0 - 1.2 MP-N eurolog y-Eugene SJW DO Work Phone: Calcium [Mass/Vol] 9.5 mg/dL 8.6 - 10.3 MP-Jozef rolog y-[facility]bert SJW DO Work Phone: Chloride [Moles/Vol] 105 mmol/L 98 - 107 MP-N eurolog y-Eugene SJW DO Work Phone: CO2 [Moles/Vol] 28 mmol/L 21 - 32 MP-Neurol og y-Eugene SJW DO Work Phone: Creatinine [Mass/Vol] 0.93 mg/dL See Below - [facility] DO Work Phone: Comment on above: Reference Range: 0.5 0 - 1.05 Glucose [Mass/Vol] 94 mg/dL 74 - 99 -[facility] DO Work Phone: Potassium [Moles/Vol] 4.4 mmol/L 3.5 - 5.3 - [employer] DO Work Phone: Protein [Mass/Vol] 7.3 g/dL 6.4 - 8.2 -[facility] DO Work Phone: Sodium [Moles/Vol] 139 mmol/L 136 - 145 -[facility] DO Work Phone: Urea nitrogen [Mass/Vol] 13 mg/dL 6 - 23 -[employer] DO Work Phone: Otheron 08-14-2020 Albumin BCP dye [Mass/Vol] 4.7 g/dL 3.4 - 5.0 -[employer] DO Work Phone: ALT With P-5'-P [Catalytic activity/Vol] 41 U/L 7 - 45 [facility] DO Work Phone: Comment on above: Patients treated wit h Sulfasalazine may generate falsely decreased results for ALT. AST With P-5'-P [Catalytic activity/Vol] 27 U/L 9 - 39 -[employer] DO Work Phone: Erythrocyte distribution width (RBC) [Ratio] 13.2 % See Below [facility] DO Work Phone: Comment on above: Reference Range: 11. 5 - 14.5 MCHC (RBC) [Mass/Vol] 32.9 g/dL See Below [facility] SJW DO Work Phone: Comment on above: [...] areas of abnormal enhancement after contrast administration. [facility] [place] EXAMINATION: MRI BRA IN W WO CONTRAST [...] The calvarium and soft tissues are unremarkable. [facility] [place], Chpo Incoming Radiant Results From [employer] - 05/09/2020 3:02 PM EDT EXAMINATION: MRI [...] areas of abnormal enhancement after contrast administration. [place], [place] MRI BRAIN W WO CONTRAST EXAMINATION: [...] David Winter MD 05/09/20 Final result [facility] CBC With Platelet and Differ entialon 04-19-2020 Basophils (Bld) [#/Vol] 0.1 10*3/uL Normal 0.0-0.2 [facility] Comment on above: Performed By: #### C BCWD #### [facility] [address] [place] [address] Basophils/100 WBC (Bld) 0.4 % Normal [facility] Comment on above: Performed By: #### C BCWD #### [facility] [address] [place] [address] Eosinophils (Bld) [#/Vol] 0.5 10*3/uL Normal 0.0-0.7 [facility] Comment on above: Performed By: #### C BCWD #### [facility] [address] [place] [address] Eosinophils/100 WBC (Bld) 4.2 % Normal [facility] Comment on above: Performed By: #### C BCWD #### [facility] [address] [place] [address] Erythrocyte distribution width (RBC) [Ratio] 12.5 % Normal 11.5-14.5 [facility] Comment on above: Performed By: #### C BCWD #### [facility] [address] [place] [address] Hematocrit (Bld) [Volume fraction] 39.4 % Normal 37.0-47.0 [facility] Comment on above: Performed By: #### C BCWD #### [facility] [address] [place] [address] Hemoglobin (Bld) [Mass/Vol] 13.3 g/dL Normal 12.0-16.0 [facility] Comment on above: Performed By: #### C BCWD #### [facility] [address] [place] [address] Lymphocytes (Bld) [#/Vol] 3.2 10*3/uL Normal 1.0-4.8 [facility] Comment on above: Performed By: #### C BCWD #### [facility] [address] [place] [address] Lymphocytes/100 WBC (Bld) 26.9 % Normal [facility] Comment on above: Performed By: #### C BCWD #### [facility] [address] [place] [address] MCH (RBC) [Entitic mass] 29.8 pg Normal 27.0-31.3 [facility] Comment on above: Performed By: #### C BCWD #### [facility] [address] [place] [address] MCHC (RBC) [Mass/Vol] 33.8 % Normal 33.0-37.0 [facility] Comment on above: Performed By: #### C BCWD #### [facility] [address] [place] [address] MCV (RBC) [Entitic vol] 88.4 fL Normal 82.0-100.0 [facility] Comment on above: Performed By: #### C BCWD #### [facility] [address] [place] [address] Monocytes (Bld) [#/Vol] 0.8 10*3/uL Normal 0.2-0.8 [facility] Comment on above: Performed By: #### C BCWD #### [facility] [address] [place] [address] Monocytes/100 WBC (Bld) 6.8 % Normal [facility] Comment on above: Performed By: #### C BCWD #### [facility] [address] [place] [address] Neutrophils (Bld) [#/Vol] 7.3 10*3/uL Critically high 1.4-6.5 [facility] Comment on above: Performed By: #### C BCWD #### [facility] [address] [place] [address] Neutrophils/100 WBC (Bld) 61.7 % Normal [facility] Comment on above: Performed By: #### C BCWD #### [facility] [address] [place] [address] Platelets (Bld) [#/Vol] 314 10*3/uL Normal 130-400 [facility] Comment on above: Performed By: #### C BCWD #### [facility] [address] [place] [address] RBC (Bld) [#/Vol] 4.45 10*6/uL Normal 4.20-5.40 [facility] Comment on above: Performed By: #### C BCWD #### [facility] [address] [place] [address] WBC (Bld) [#/Vol] 11.9 10*3/uL Critically high 4.8-10.8 [facility] Comment on above: Performed By: #### C BCWD #### [facility] [address] [place] [address] CT HEAD WO CONTRASTon 2019 CT HEAD [...] De Jesus DO 04/19/20 Final result Normal [facility] Comprehensive Metabolic Pane crescencio 04-19-2020 Albumin [Mass/Vol] 4.9 g/dL Critically high 3.5-4.6 [facility] Comment on above: Performed By: #### C MP #### [facility] [address] [place] [address] ALP [Catalytic activity/Vol] 40 U/L Normal 40-130 [facility] Comment on above: Performed By: #### C MP #### [facility] [address] [place] [address] ALT [Catalytic activity/Vol] 17 U/L Normal 0-33 [facility] Comment on above: Performed By: #### C MP #### [facility] [address] [place] [address] Anion gap [Moles/Vol] 14 mmol/L Normal 9-15 [facility] Comment on above: Performed By: #### C MP #### [facility] [address] [place] [address] AST [Catalytic activity/Vol] 17 U/L Normal 0-35 [facility] Comment on above: Performed By: #### C MP #### [facility] [facility] [address] [place] [address] Bilirubin [Mass/Vol] mg/dL Normal 0.2-0.7 [facility] Comment on above: Performed By: #### C MP #### [facility] [address] [place] [address] Calcium [Mass/Vol] 10.0 mg/dL Critically high 8.5-9.9 [facility] Comment on above: Performed By: #### C MP #### [facility] [address] [place] [address] Chloride [Moles/Vol] 101 mmol/L Normal 95-107 [facility] Comment on above: Performed By: #### C MP #### [facility] [address] [place] [address] CO2 [Moles/Vol] 24 mmol/L Normal 20-31 [facility] Comment on above: Performed By: #### C MP #### [facility] [address] [place] [address] Creatinine [Mass/Vol] 0.87 mg/dL Normal 0.50-0.90 [facility] Comment on above: Performed By: #### C MP #### [facility] [address] [place] [address] GFR/1.73 sq M predicted among blacks MDRD (S/P/Bld) [Vol rate/Area] mL/min/{1.73_m2} Normal >60 [facility] Comment on above: Result Comment: >60 mL/min/1.73m2 EGFR, calc. for ages 18 and older using the MDRD formula (not corrected for weight), is valid for stable renal function. Performed By: #### C MP #### [facility] [address] [place] [address] GFR/1.73 sq M.predicted MDRD (S/P/Bld) [Vol rate/Area] mL/min/{1.73_m2} Normal >60 [facility] Comment on above: Result Comment: >60 mL/min/1.73m2 EGFR, calc. for ages 18 and older using the MDRD formula (not corrected for weight), is valid for stable renal function. Performed By: #### C MP #### [facility] [address] [place] [address] Globulin (S) [Mass/Vol] 3.1 g/dL Normal 2.3-3.5 [facility] Comment on above: Performed By: #### C MP #### [facility] [address] [place] [address] Glucose [Mass/Vol] 94 mg/dL Normal 70-99 [facility] Comment on above: Performed By: #### C MP #### [facility] [address] [place] [address] Potassium [Moles/Vol] 3.9 mmol/L Normal 3.4-4.9 [facility] Comment on above: Performed By: #### C MP #### [facility] [address] [place] [address] Protein [Mass/Vol] 8.0 g/dL Normal 6.3-8.0 [facility] Comment on above: Performed By: #### C MP #### [facility] [address] [place] [address] Sodium [Moles/Vol] 139 mmol/L Normal 135-144 [facility] Comment on above: Performed By: #### C MP #### [facility] [address] [place] [address] Urea nitrogen [Mass/Vol] 12 mg/dL Normal 6-20 [facility] Comment on above: Performed By: #### C MP #### [facility] [address] [place] [address] Lactic Acidon 04-19-2020 Lactate [Moles/Vol] 1.8 mmol/L Normal 0.5-2.2 [facility] Comment on above: Performed By: #### L ACID #### [facility] [address] [place] [address] Prolactinon 04-19-2020 Prolactin 160.8 ng/mL Normal [facility] Comment on above: Result Comment: Defa ult Normal Ranges Female Male Non: 4.8-23.3 4.0-15.2 Performed By: #### P JAISON #### [facility] [address] [place] [address] Serum HCG Qualitativeon HCG.beta subunit Qn Negative Normal [facility] Comment on above: Performed By: #### S HCG #### [facility] [address] [place] [address] Urinalysis, reflex to cultur emily 04-19-2020 Urine Reflexed to Culture Not Indicated Normal [facility] Comment on above: Performed By: #### U AR #### [facility] [address] [place] [address] Bilirubin Ql (U) Negative Normal Negative [facility] Comment on above: Performed By: #### U AR #### [facility] [address] [place] [address] Clarity (U) Clear Normal Clear [facility] Comment on above: Performed By: #### U AR #### [facility] [address] [place] [address] Color (U) Yellow Normal Straw/Coryell [facility] Comment on above: Performed By: #### U AR #### [facility] [address] [place] [address] Glucose Ql (U) Negative Normal Negative [facility] Comment on above: Performed By: #### U AR #### [facility] [address] [place] [address] Hemoglobin Ql (U) Trace-intact Normal Negative [facility] Comment on above: Performed By: #### U AR #### [facility] [address] [place] [address] Ketones Ql (U) Negative Normal Negative [facility] Comment on above: Performed By: #### U AR #### [facility] [address] [place] [address] Leukocyte esterase Test strip Ql (U) Negative Normal Negative [facility] Comment on above: Performed By: #### U AR #### [facility] [address] [place] [address] Nitrite Ql (U) Negative Normal Negative [facility] Comment on above: Performed By: #### U AR #### [facility] [address] [place] [address] pH (U) 6.0 [pH] Normal 5.0-9.0 [facility] Comment on above: Performed By: #### U AR #### [facility] [address] [place] [address] Protein Ql (U) Negative Normal Negative [facility] Comment on above: Performed By: #### U AR #### [facility] [address] [place] [address] Specific gravity (U) [Rel density] 1.020 Normal 1.005-1.03 [facility] Comment on above: Performed By: #### U AR #### [facility] [address] [place] [address] Urobilinogen Qn (U) 0.2 {Alan'U}/dL Normal < 2.0 [facility] Comment on above: Performed By: #### U AR #### [facility] [address] [place] [address] Urine Microscopicon 04-19-20 20 Epithelial cells LM Ql (Urine sed) 0-2 Normal [facility] Comment on above: Performed By: #### U ARELY #### [facility] [address] [place] [address] RBC (U) [#/Vol] 0-2 Normal 0-2 [facility] Comment on above: Performed By: #### U ARELY #### [facility] [address] [place] [address] WBC (U) [#/Vol] 0-2 Normal 0-5 [facility] Comment on above: Performed By: #### U ARELY #### [facility] [address] [place] [address] CBC Auto Differentialon 10-0 -2020 Basophils (Bld) [#/Vol] 0.1 10*3/uL 0 - 0.2 K/u L [facility] [place] [place] Basophils/100 WBC (Bld) 0.4 % [place] Eosinophils (Bld) [#/Vol] 0.5 10*3/uL 0 - 0.7 K/uL [place] Eosinophils/100 WBC (Bld) 4.2 % [place] Erythrocyte distribution width (RBC) [Ratio] 12.5 % 11.5 - 14.5 % [place] Hematocrit (Bld) [Volume fraction] 39.4 % 37 - 47 % [place] Hemoglobin (Bld) [Mass/Vol] 13.3 g/dL 12 - 16 g/dL [place] Interpretation and review of laboratory results Abnormal [place] Lymphocytes (Bld) [#/Vol] 3.2 10*3/uL 1 - 4.8 K/uL [place] Lymphocytes/100 WBC (Bld) 26.9 % [place] MCH (RBC) [Entitic mass] 29.8 pg 27 - 31.3 pg [place] MCHC (RBC) [Mass/Vol] 33.8 % 33 - 37 % [place] MCV (RBC) [Entitic vol] 88.4 fL 82 - 100 fL [place] Monocytes (Bld) [#/Vol] 0.8 10*3/uL 0.2 - 0.8 K /uL [place] Monocytes/100 WBC (Bld) 6.8 % [place] Neutrophils Absolute 7.3 K/uL High 1.4 - 6.5 K/uL [place] Neutrophils/100 WBC (Bld) 61.7 % [place] Platelets (Bld) [#/Vol] 314 10*3/uL 130 - 400 K /uL [place] RBC (Bld) [#/Vol] 4.45 10*6/uL [place] WBC (Bld) [#/Vol] 11.9 10*3/uL High 4.8 - 10.8 K/uL [place] Comprehensive Metabolic Pane crescencio 04-18-2020 Albumin [Mass/Vol] 4.9 g/dL High 3.5 - 4.6 g/dL [place] ALP [Catalytic activity/Vol] 40 U/L 40 - 130 U/L [place] ALT [Catalytic activity/Vol] 17 U/L 0 - 33 U/L [place] Anion gap [Moles/Vol] 14 mmol/L [place] AST [Catalytic activity/Vol] 17 U/L 0 - 35 U/L [place] Bilirubin Ql (U) <0.2 0.2 - 0.7 mg/dL [place] Calcium [Mass/Vol] 10.0 mg/dL High 8.5 - 9.9 mg/dL [place] Chloride [Moles/Vol] 101 mmol/L [place] CO2 [Moles/Vol] 24 mmol/L [place] Creatinine [Mass/Vol] 0.87 mg/dL 0.5 - 0.9 mg/dL [place] GFR >60.0 >60 [place] Comment on above: >60 mL/min/1.73m2 EG FR, calc. for ages 18 and older using the MDRD formula (not corrected for weight), is valid for stable renal function. GFR Non- >60.0 >60 [place] Comment on above: >60 mL/min/1.73m2 EG FR, calc. for ages 18 and older using the MDRD formula (not corrected for weight), is valid for stable renal function. Globulin (S) [Mass/Vol] 3.1 g/dL 2.3 - 3.5 g/ dL [place] Glucose [Mass/Vol] 94 mg/dL 70 - 99 mg/dL [place] Interpretation and review of laboratory results Abnormal [place] Potassium [Moles/Vol] 3.9 mmol/L [place] Protein [Mass/Vol] 8.0 g/dL 6.3 - 8 g/dL [place] Sodium [Moles/Vol] 139 mmol/L [place] Urea nitrogen [Mass/Vol] 12 mg/dL 6 - 20 mg/dL [place] HCG Qualitative, Serumon hCG Qual Negative [place] Lactic Acid, Plasmaon 2019 Lactate [Moles/Vol] 1.8 mmol/L 0.5 - 2. 2 mmol/L [place] Microscopic Urinalysison Epithelial Cells, UA 0-2 /HPF [place] RBC (U) [#/Vol] 0-2 [place] WBC, UA 0-2 [place] Urine Reflex to Cultureon Bilirubin Urine Negative Negative [place] Blood, Urine Trace-intact Negative [place] Clarity, UA Clear Clear [place] Color, UA Yellow Straw/Yellow [place] Glucose, Ur Negative Negative mg/dL [place] Ketones Ql (U) Negative Negative mg/dL [place] Leukocyte esterase Test strip Ql (U) Negative Negative [place] Nitrite, Urine Negative Negative [place] pH, UA 6.0 [place] Protein (U) [Mass/Vol] Negative Negative mg/d L [place] Specific Drew, UA 1.020 [place] Urine Reflex to Culture Not Indicated [place] Urobilinogen, Urine 0.2 <2.0 E.U./dL [place] ECHOCARDIOGRAPHY REPORT (HL) on 05-10-2017 ECHOCARDIOGRAPHY REPORT (HL) [facility] [id number] [id number] VASCULAR LABReferring: Koffi Uriarte A.Reading: CURTIS GARCIA [...] 4 CH 16.1 cm2LA Volume Indexed 21.05 ml/d2Ipnzsdsdw/Systoli c FunctionMV E-wave Vmax 0.884 m/secMV deceleration time 193 msecMV A-wave Vmax 0.494 m/secLV septal e' Vmax 0.115 m/secLV lateral e' Vmax 0.189 m/secLV E:e' septal ratio 7.7 ratio [facility] PRINCESS CANTU [id number] [place] [address] [id number] 93Jackie Uriarte MDECHOCARDIOGRAPHY REPORTLV E:e' lateral ratio [...] structure. There is no evidence ofpulmonic regurgitation. [facility] [id number] [place] [address] [id number] 93Jackie roper MDECHOCARDIOGRAPHY REPORTPericardium:Ther e is no pericardial effusion [...] function.This is a normal echocardiogram.PARAS CHOW05/10/2017 10:26:53 [facility] [id number] [place] [address] [id number] 93Jackie roper MDECHOCARDIOGRAPHY REPORT Normal [facility] BASIC METABOLIC PANELon 10-1 Anion gap 10 mmol/L Normal 6-18 [facility] Comment on above: Order Comment: Is pa tient fasting? YES Performed By: #### L BMP, LGFRP ####[facility] [id number] [place] [address] Calcium 9.6 mg/dL Normal 8.6-10.3 [facility] Comment on above: Order Comment: Is pa tient fasting? YES Performed By: #### L BMP, LGFRP ####[facility] [id number] [place] [address] Chloride 101 mmol/L Normal 98-107 [facility] Comment on above: Order Comment: Is pa tient fasting? YES Performed By: #### L BMP, LGFRP ####[facility] [id number] [place] [address] CO2 27 mmol/L Normal 21-32 [facility] Comment on above: Order Comment: Is pa tient fasting? YES Performed By: #### L BMP, LGFRP ####[facility] [id number] [place] [address] Creatinine 0.74 mg/dL Normal 0.5-1.05 [facility] Comment on above: Order Comment: Is pa tient fasting? YES Performed By: #### L BMP, LGFRP ####[facility] [address] [place] [address] Glucose mass conc 82 mg/dL Normal 74-99 [facility] [place] [place] Comment on above: Order Comment: Is pa tient fasting? YES Performed By: #### L BMP, LGFRP ####[facility] [id number] [place] [address] Potassium molar conc 4.1 mmol/L Normal 3.5-5.3 [facility] Comment on above: Order Comment: Is pa tient fasting? YES Performed By: #### L BMP, LGFRP ####[facility] [id number] [place] [address] Sodium 134 mmol/L Low 136-145 [facility] Comment on above: Order Comment: Is pa tient fasting? YES Performed By: #### L BMP, LGFRP ####[facility] [address] [place] [address] Urea nitrogen 14 mg/dL Normal 6-23 [facility] Comment on above: Order Comment: Is pa tient fasting? YES Performed By: #### L BMP, LGFRP ####[facility] [id number] [place], [place] [id number] CBC AUTOon 05-04-2017 Erythrocyte distribution width Auto Ratio (RBC) 12.8 % Normal 11.5-14.5 [facility] Comment on above: Performed By: #### L CBC ####[place] [id number] Erythrocytes (RBC) 4.65 10*6/uL Normal 3.5-5.5 [facility] Comment on above: Performed By: #### L CBC ####[place] [address] Hematocrit (HCT) 41.1 % Normal 36.0-48.0 [facility] Comment on above: Performed By: #### L CBC ####[place] [address] Hemoglobin mass conc (Bld) 13.8 g/dL Normal 12.0-15.0 [facility] Comment on above: Performed By: #### L CBC ####[place] [id number] MCH 29.7 pg Normal 25.4-34.6 [facility] Comment on above: Performed By: #### L CBC ####[place] [id number] MCHC mass conc (RBC) 33.6 g/dL Normal 30.0-36.0 [facility] Comment on above: Performed By: #### L CBC ####[facility] [id number] [place], [place] [id number] MCV 88.4 fL Normal 79.0-98.0 [facility] Comment on above: Performed By: #### L CBC ####[place] [id number] Platelet mean volume (PMV) 9.3 fL Normal 8.4-11.9 [facility] Comment on above: Performed By: #### L CBC ####[place] [id number] Platelets 277 10*3/uL Normal 140-440 [facility] Comment on above: Performed By: #### L CBC ####[facility] [id number] [place] [address] WBC (Leukocytes) 6.1 10*3/uL Normal 3.9-11.0 [facility] [place] [place] Comment on above: Performed By: #### L CBC ####[facility] [id number] [place] [address] GLOMERULAR FILTRATION RATE E STon 05-04-2017 eGFR (non-black) mL/min/{1.73_m2} Normal > 60 [facility] Comment on above: Order Comment: Is pa tient fasting? YES Performed By: #### L BMP, LGFRP ####[facility] [address] [place] [address] IF AMER > 90 Normal > 60 [facility] Comment on above: Order Comment: Is pa tient fasting? YES Result Comment: Effe ctive 12/12/14:CKD-EPI equation / based on IDMS traceable creatinine.Continue to use the CREAT CLR-DOSE ([place]gro[place]-Gault)value for determining medication dose. Performed By: #### L BMP, LGFRP ####[facility] [id number] [place] [address] Vital Signs Date Time Vital Sign Value Performing Clinician Yael murguia 07-31-2022 10:54-0500 Body height 175.26 cm Koffi Rosas [employer] Work Phone: [employer] Work Phone: 07-31-2022 10:54-0500 Body mass index (BMI) [Ratio] 31.01 kg/m2 Koffi Clementeson Work Phone: [employer] Work Phone: 07-31-2022 10:54-0500 Body surface area Derived from formula 2.11 m2 Koffi Clementeson Work Phone: [employer] Work Phone: 07-31-2022 10:54-0500 Body temperature 97.6 [degF] Koffi Uriarte Work Phone: TM[facility]JJKI[facility] Work Phone: 07-31-2022 10:54-0500 Body weight 95.26 kg Koffi Uriarte Work Phone: KX-SWKB-[place]g [place] Work Phone: 07-31-2022 10:54-0500 Diastolic blood pressure 87 mm[Hg] Koffi Uriarte Work Phone: CZ-TQYO-Qsqx [place] Work Phone: 07-31-2022 10:54-0500 Heart rate 76 /min Koffi Uriarte Work Phone: XP-ZPTS-[place]ii [place] Work Phone: 07-31-2022 10:54-0500 Respiratory rate 18 /min Koffi Uriarte Work Phone: IC-RINA-Frgj [place] Work Phone: 07-31-2022 10:54-0500 Systolic blood pressure 121 mm[Hg] Koffi Uriarte Work Phone: YO-EBCS-[place]eoa [place] Work Phone: 12-24-2021 11:32-0400 Body height 175.26 cm Koffi Uriarte Work Phone: LW-Navpssozw-[place]clh [place] [facility] DO Work Phone: 12-24-2021 11:32-0400 Body mass index (BMI) [Ratio] 31.03 kg/m2 Koffi Uriarte Work Phone: SL-Vwhcosewd-Xvzc [place] [facility] DO Work Phone: 12-24-2021 11:32-0400 Body surface area Derived from formula 2.11 m2 Koffi Uriarte Work Phone: TM-Vpsrqavdo-Uqko [place] [facility] DO Work Phone: 12-24-2021 11:32-0400 Body temperature 97.1 [degF] Koffi Uriarte Work Phone: [facility] DO Work Phone: 12-24-2021 11:32-0400 Body weight 95.3 kg Koffi Uriarte Work Phone: [facility] DO Work Phone: 12-24-2021 11:32-0400 Diastolic blood pressure 76 mm[Hg] Koffi Uriarte Work Phone: [facility] DO Work Phone: 12-24-2021 11:32-0400 Heart rate 54 /min Koffi Uriarte Work Phone: [facility] DO Work Phone: 12-24-2021 11:32-0400 SaO2% (BldA) [Mass fraction] 100 % Koffi Uriarte Work Phone: [facility] DO Work Phone: 12-24-2021 11:32-0400 Systolic blood pressure 114 mm[Hg] Koffi Uriarte Work Phone: [facility] DO Work Phone: 11-17-2021 13:08-0400 Body height 172.72 cm Koffi Uriarte Work Phone: [facility] Work Phone: 11-17-2021 13:08-0400 Body mass index (BMI) [Ratio] 32.39 kg/m2 Koffi Uriarte Work Phone: FJ-AJUH-Kspz [place] Work Phone: 11-17-2021 13:08-0400 Body surface area Derived from formula 2.1 m2 Koffi Uriarte Work Phone: JW-PTSK-[place]di [place] Work Phone: 11-17-2021 13:08-0400 Body temperature 97 [degF] Koffi Uriarte Work Phone: QI-TMGR-[place]qwi [place] Work Phone: 11-17-2021 13:08-0400 Body weight 96.62 kg Koffi Uriarte Work Phone: SZ-WBQD-Frjg [place] Work Phone: 11-17-2021 13:08-0400 Diastolic blood pressure 84 mm[Hg] Koffi Uriarte Work Phone: WS-ZKRJ-Ehrb [place] Work Phone: 11-17-2021 13:08-0400 Heart rate 70 /min Koffi Uriarte Work Phone: GG-DKET-Zvls [place] Work Phone: 11-17-2021 13:08-0400 Respiratory rate 18 /min Koffi Uriarte Work Phone: ZF-HFBD-Belp [place] Work Phone: 11-17-2021 13:08-0400 SaO2% (BldA) [Mass fraction] 96 % Koffi Uriarte Work Phone: GP-YSJG-Mkoj [place] Work Phone: 11-17-2021 13:08-0400 Systolic blood pressure 126 mm[Hg] Koffi Uriarte Work Phone: KU-QGES-Aykm [place] Work Phone: 06-25-2021 10:54-0500 Body height 172.72 cm Koffi Uriarte Work Phone: EI-Jrfsphyuh-Pkxa [facility]ers [facility]J DO Work Phone: 06-25-2021 10:54-0500 Body mass index (BMI) [Ratio] 32.08 kg/m2 Koffi Uriarte Work Phone: [facility] DO Work Phone: 06-25-2021 10:54-0500 Body surface area Derived from formula 2.09 m2 Koffi Uriarte Work Phone: [facility] DO Work Phone: 06-25-2021 10:54-0500 Body temperature 97.1 [degF] Koffi Uriarte Work Phone: [facility] DO Work Phone: 06-25-2021 10:54-0500 Body weight 95.71 kg Koffi Uriarte Work Phone: [facility] DO Work Phone: 06-25-2021 10:54-0500 Diastolic blood pressure 62 mm[Hg] Koffi Uriarte Work Phone: [facility] DO Work Phone: 06-25-2021 10:54-0500 Heart rate 67 /min Koffi Uriarte Work Phone: [facility] DO Work Phone: 06-25-2021 10:54-0500 Respiratory rate 18 /min Koffi Uriarte Work Phone: [facility] DO Work Phone: 06-25-2021 10:54-0500 SaO2% (BldA) [Mass fraction] 99 % Koffi Uriarte Work Phone: [facility] DO Work Phone: 06-25-2021 10:54-0500 Systolic blood pressure 131 mm[Hg] Koffi Uriarte Work Phone: [facility] DO Work Phone: 05-20-2021 15:59-0400 Body height 172.72 cm Koffi Uriarte Work Phone: LR-JLCS-Iwgd [place] Work Phone: 05-20-2021 15:59-0400 Body mass index (BMI) [Ratio] 31.93 kg/m2 Koffi Uriarte Work Phone: OB-TOPS-Gfqk [place] Work Phone: 05-20-2021 15:59-0400 Body surface area Derived from formula 2.09 m2 Koffi Uriarte Work Phone: PV-LIYD-Uief [place] Work Phone: 05-20-2021 15:59-0400 Body temperature 98.1 [degF] Koffi Uriarte Work Phone: GP-NBGJ-Tqhz [place] Work Phone: 05-20-2021 15:59-0400 Body weight 95.26 kg Koffi Uriarte Work Phone: DC-LNAV-Twgr [place] Work Phone: 05-20-2021 15:59-0400 Diastolic blood pressure 82 mm[Hg] Koffi Uriarte Work Phone: KP-SBCC-Honi [place] Work Phone: 05-20-2021 15:59-0400 Heart rate 72 /min Koffi Uriarte Work Phone: FX-KQSE-Grax [place] Work Phone: 05-20-2021 15:59-0400 Respiratory rate 16 /min Koffi Uriarte Work Phone: AO-PGLF-Hlrs [place] Work Phone: 05-20-2021 15:59-0400 Systolic blood pressure 122 mm[Hg] Koffi Uriarte Work Phone: KB-FJYK-Bjza [place] Work Phone: 12-24-2020 14:45-0400 Body height 172.72 cm Koffi Uriarte Work Phone: ES-WDPT-Mhfx [place] Work Phone: 12-24-2020 14:45-0400 Body mass index (BMI) [Ratio] 30.71 kg/m2 Koffi Uriarte Work Phone: WY-SHRW-Dptb [place] Work Phone: 12-24-2020 14:45-0400 Body surface area Derived from formula 2.05 m2 Koffi Uriarte Work Phone: MW-HZLD-Snyt [place] Work Phone: 12-24-2020 14:45-0400 Body temperature 97.8 [degF] Koffi Uriarte Work Phone: SY-UGNA-[place]iwi [place] Work Phone: 12-24-2020 14:45-0400 Body weight 91.63 kg Koffi Uriarte Work Phone: VS-FNBJ-Yehx [place] Work Phone: 12-24-2020 12:59-0400 Body height 172.72 cm Koffi Uriarte Work Phone: TZ-AKQI-Exog [place] Work Phone: 12-24-2020 12:59-0400 Body mass index (BMI) [Ratio] 30.71 kg/m2 Koffi Clementeson Work Phone: CN-RXMM-[place]poo [place] Work Phone: 12-24-2020 12:59-0400 Body surface area Derived from formula 2.05 m2 Koffi Clementeson Work Phone: FT-YBRL-Kuwp [place] Work Phone: 12-24-2020 12:59-0400 Body temperature 98.2 [degF] Koffi Uriarte Work Phone: FS-JYOO-Mcsb [place] Work Phone: 12-24-2020 12:59-0400 Body weight 91.63 kg Koffi Uriarte Work Phone: UO-INBY-Cepk [place] Work Phone: 12-24-2020 12:59-0400 Diastolic blood pressure 90 mm[Hg] Koffi Uriarte Work Phone: JB-HYKG-Ynuv [place] Work Phone: 12-24-2020 12:59-0400 Heart rate 75 /min Koffi Uriarte Work Phone: YK-JJAZ-Lstn [place] Work Phone: 12-24-2020 12:59-0400 Respiratory rate 16 /min Koffi Uriarte Work Phone: ON-JNGD-Pbng [place] Work Phone: 12-24-2020 12:59-0400 Systolic blood pressure 147 mm[Hg] Koffi Uriarte Work Phone: QG-GLJR-Cefv [place] Work Phone: 08-14-2020 13:26-0500 BMI (Body Mass Index) 29.04 kg/m2 Koffi Uriarte JX-Bzkmizlrk-Bgxb [place] [facility] DO Work Phone: 08-14-2020 13:26-0500 Body Temperature 97.5 [degF] Koffi Uriarte [facility] Work Phone: 08-14-2020 13:26-0500 Body weight 86.64 kg Koffi Uriarte [facility] Work Phone: 08-14-2020 13:26-0500 BP Diastolic 100 mm[Hg] Koffi Uriarte [facility] Work Phone: 08-14-2020 13:26-0500 BP Systolic 150 mm[Hg] Koffi Uriarte MP-Neurology- [facility] DO Work Phone: 08-14-2020 13:26-0500 BSA (Body Surface Area) 2 m2 Koffi Uriarte JE-Xftaykipe-Ecvy [place] [facility] DO Work Phone: 08-14-2020 13:26-0500 Height 172.72 cm Koffi Uriarte MP-Neurology- [facility] DO Work Phone: 05-28-2020 15:24-0500 BMI (Body Mass Index) 28.59 kg/m2 Koffi Uriarte MP-[facility] Work Phone: 05-28-2020 15:24-0500 Body Temperature 97.6 [degF] Koffi Uriarte KW-SIMT-[place]c [place] Work Phone: 05-28-2020 15:24-0500 Body weight 85.28 kg Koffi Uriarte OE-OUWV-Dkfs [place] Work Phone: 05-28-2020 15:24-0500 BP Diastolic 82 mm[Hg] Koffi Uriarte SO-NTZT-Pwud [place] Work Phone: 05-28-2020 15:24-0500 BP Systolic 122 mm[Hg] Koffi Uriarte MD-ZRKQ-Abyv [place] Work Phone: 05-28-2020 15:24-0500 BSA (Body Surface Area) 1.99 m2 Koffi Uriarte TH-YNVM-Qhmx [place] Work Phone: 05-28-2020 15:24-0500 Height 172.72 cm Koffi Uriarte VC-WAID-Qtru [place] Work Phone: 05-28-2020 15:24-0500 Pulse (Heart Rate) 70 /min Koffi Uriarte MP-[facility] Work Phone: 05-28-2020 15:24-0500 Respiratory Rate 18 /min Koffi RAGLAND-[place]ennifer [place] Work Phone: 04-25-2020 16:01-0400 BMI (Body Mass [...] Phone: 04-19-2020 00:00-0400 BP Diastolic 83 mm[Hg] [facility], [place] 04-19-2020 00:00-0400 BP Systolic 144 mm[Hg] [facility], [place] 04-18-2020 22:17-0400 BMI (Body Mass Index) 28.06 kg/m2 [facility], [place] 04-18-2020 22:17-0400 Body Temperature 98.91 [degF] Tu Wright [facility], [place] 04-18-2020 22:17-0400 Body weight 86.18 kg Tu Wright [facility], [place] 04-18-2020 22:17-0400 Height 175.3 cm Tu Wright [facility] 04-18-2020 22:17-0400 Pulse (Heart Rate) 105 /min uT Barker [facility], [place] 04-18-2020 22:17-0400 Pulse Oximetry 97 % Tu Wright [facility], [place] 04-18-2020 22:17-0400 Respiratory Rate 16 /min Tu [place] Adriana [facility], [place] Encounters Encounter Date Encounter Type Care Provider Facility Start: 07-14-2023 End: 07-14-2023 ambulatory SHIMA RODAS Not Available Start: 06-30-2023 End: 07-01-2023 ambulatory SHIMA RODAS Not Available Start: 06-16-2023 End: 06-16-2023 ambulatory SHIMA CLARK Not Available Start: 06-01-2023 End: 06-01-2023 ambulatory SHIMA CLARK Not Available Start: 04-30-2023 End: 04-30-2023 [facility] Start: 04-30-2023 End: 04-30-2023 Office outpatient visit 15 minutes Nedra Calderon MD Work Phone: [facility] Comment on above: Seizure (CMS/HCC) (P rimary Dx) Start: 11-25-2022 End: 11-26-[address] LISA ZIMMERMAN . Facility:H1 Start: 11-16-2022 End: 11-17-[address] LISA ZIMMERMAN . Facility:[facility]1 Start: 07-31-2022 Current tobacco non- user cad cap copd pv dm Koffi Uriarte Work Phone: [employer] Work Phone: Start: 07-31-2022 Periodic preventive med est patient 18-39 yrs Koffi Uriarte Work Phone: [employer] Work Phone: Start: 07-31-[address] 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 Work Phone: CB/Gynecology Comment on above: Appointment Start: 03-18-2022 AUDIT Koffi Carlson [employer] Work Phone: WF-Nalufvvot-Ezuqrtx e SJW DO Work Phone: Start: 02-03-2022 ambulatory Brendan Blankenship PA-C Work Phone: OB/Gynecology Comment on above: Bacteria Vaginosis Start: 01-02-2022 AUDIT Koffi Rosas [employer] Work Phone: UV-QUXU-Dggc [place] Work Phone: Start: 12-24-2021 Office outpatient vi sit 15 minutes Koffi Clementeson Work Phone: SL-Qoeqxlffu-Hclgqne e SJW DO Work Phone: Start: 11-17-2021 Office outpatient vi sit 15 minutes Koffi Clementeson Work Phone: HB-CJKV-Cwvm [place] Work Phone: Start: 09-29-2021 AUDIT Koffi Carlson ardson Work Phone: DC-ZMRY-Tqgs [place] Work Phone: Start: 09-09-2021 End: 09-09-2021 ambulatory BRENDAN BLANKENSHIP Facility:[facility] Start: 07-04-2021 End: 07-05-2021 ambulatory GEORGIA DWYER Facility:[facility] Start: 07-04-2021 Encounter for gynecological examination (general) (routine) without abnormal findings GEORGIA DWYER [facility] Start: 06-25-2021 Office outpatient vi sit 25 minutes Koffi Alison Uriarte Work Phone: FJ-Zrfquwray-Aszgplm e SJW DO Work Phone: Start: 05-22-2021 Chart Update Koffi Carlson ardson Work Phone: QT-PLCA-Xufm [place] Work Phone: Start: 05-20-2021 Office outpatient vi sit 25 minutes Koffi Alison Uriarte Work Phone: HN-JTMJ-Nctk [place] Work Phone: Start: 05-20-2021 Patient encounter procedure Koffi Alison ClementeUriarte Work Phone: WV-SAPZ-[place]os [place] Work Phone: Start: 03-28-2021 AUDIT Koffi Carlson ardson Work Phone: PR-CEOK-Oert [place] Work Phone: Start: 12-24-2020 Chart Update Koffi Alison Carlson ardson Work Phone: KW-MWML-Uliv [place] Work Phone: Start: 12-24-2020 Office outpatient vi sit 25 minutes Koffi A Uriarte Work Phone: OT-AUVK-Ypnv [place] Work Phone: Start: 08-14-2020 Patient encounter procedure Koffi Clementeson VQ-Enqwgaoml-Zlslrvt e SJW DO Work Phone: Start: 06-11-2020 Patient encounter procedure Koffi Uriarte RF-Jrgmruejw-Wtscsyc e SJW DO Work Phone: Start: 05-28-2020 Patient encounter procedure Koffi Uriarte RM-HLQW-Vfer [place] Work Phone: Start: 05-09-2020 End: 05-12-2020 Patient encounter procedure [facility] Start: 05-09-2020 End: 05-11-2020 Subsequent hospital visit by physician Madeline Frey 1 EEG Comment on above: 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) Start: 04-25-2020 Patient encounter procedure Koffi Uriarte OP-KRIW-[place]oxd [place] Work Phone: Start: 04-19-2020 End: 04-19-2020 Emergency department patient visit [facility] Start: 04-18-2020 End: 04-19-2020 Emergency department patient visit Tu Curran Work Phone: [facility] Comment on above: Seizure (HCC) (Prima ry Dx) Start: 03-02-2019 Patient encounter procedure Koffi Uriarte ZF-PKHO-Eljt [place] Work Phone: Start: 05-04-2017 Ambulatory [facility] Patient encounter status Koffi Uriarte Work Phone: LQ-YFDH-Kfty [place] Work Phone: Procedures Date Procedure Procedure Detail [...] MD Work Phone: Start: 05-10-2020 Electroencephalogram SPIKE RADHA Start: 05-10-2020 RADIOLOGY REPORT SPIKE RADHA Start: 05-10-2020 RADIOLOGY REPORT Hpf Scanning Start: 05-09-2020 Mri brain brain stem w/o w/contrast material SPIKE GARCIA Start: 05-09-2020 Electroencephalogram w/rec awake&drowsy SPIKE GARCIA Start: 05-09-2020 Mri brain brain stem w/o w/contrast material Spike Garcia Work Phone: Start: 05-09-2020 Electroencephalogram w/rec awake&drowsy Spike Garcia Work Phone: Start: 04-19-2020 Assay of lactate ZAC ANDERSON Start: 04-19-2020 Assay of prolactin ZAC ANDERSON Start: 04-19-2020 Ct head/brain w/o contrast material ZAC ANDERSON Start: 04-19-2020 Urinalysis microscopic only ZAC MAXWELL Start: 04-19-2020 Urnls dip stick/tablet rgnt auto w/o microscopy ZAC ANDERSON Start: 04-19-2020 Blood count complete auto&auto difrntl wbc ZAC ANDERSON Start: 04-19-2020 Comprehensive metabolic panel ZAC BRITT Start: 04-19-2020 Gonadotropin chorionic qualitative ZAC ANDERSON Start: 04-19-2020 DIET NPO, NOW ZAC ANDERSON Start: 04-19-2020 SEIZURE PRECAUTIONS ZAC ANDERSON Start: 04-19-2020 SALINE LOCK IV ZAC ANDERSON Start: 04-18-2020 Assay of lactate Tu knutson Work Phone: Start: 04-18-2020 Urinalysis microscopic only Tu Reece [facility] Work Phone: Start: 04-18-2020 Urnls dip stick/tablet [...] f 2) Zoster Vaccines (1 of 2) [facility] Start: 02-17-2028 DTaP/Tdap/Td Vaccine s (8 - Td or Tdap) DTaP/Tdap/Td Vaccines (8 - Td or Tdap) [facility] Start: 08-02-2023 PHYSICAL, Provider: Koffi Uriarte, Status: Pen, Time: 9:00 AM PHYSICAL, Provider: Koffi Uriarte, Status: Pen, Time: 9:00 AM SQ-ZREV-[place]y [place] Work Phone: Start: 08-02-2023 End: 08-02-2023 Patient encounter procedure 08/02/2023 9:00 AM EST Office Visit [facility] [address] [place] [id number] [place] [address] [place], [place] [id number] [facility] Start: 07-02-2023 PAP TESTING PAP TESTING [facility] Start: 07-02-2023 Screening for malignant neoplasm of cervix [facility] Start: 12-24-2022 ERIKA, Provider : Nedra Calderon, Status: Pen, Time: 10:00 AM ERIKA, Provider: Nedra Calderon, Status: Pen, Time: 10:00 AM PE-Uwlpvouvg-Vadykrn e AMANDAW DO Work Phone: Start: 05-22-2022 PHYSICAL, Provider: Koffi Uriarte, Status: Pen, Time: 9:50 AM PHYSICAL, Provider: Koffi Uriarte, Status: Pen, Time: 9:50 AM NV-SNEO-Cdqw [place] Work Phone: Start: 03-24-2022 End: 05-24-2022 Choriogonadotropin.bet a subunit [Units/volume] in Serum or Plasma HCG QUANTITATIVE Lab Routine Bleeding in early Expected: 03/24/2022, Expires: 05/24/2022 [facility] Work Phone: Comment on above: Expected: 03/24/2022 , Expires: 05/24/2022 Start: 03-19-2022 Influenza vaccination INFLUENZA (#1) [facility] Start: 12-24-2021 Thyroid stimulating hormone measurement TSH Level [facility] Start: 12-24-2021 FUVGENERAL, Provider : Nedra Calderon, Status: Pen, Time: 11:30 AM FUVGENERAL, Provider: Nedra Calderon, Status: Pen, Time: 11:30 AM XJ-Xvoyfymli-Cqjifkh e SJW DO Work Phone: Start: 11-17-2021 FUV, Provider: Koffi Uriarte, Status: Pen, Time: 1:00 PM FUV, Provider: Koffi Uriarte, Status: Pen, Time: 1:00 PM QH-FNMP-Ggku [place] Work Phone: Start: 07-01-2021 COVID-19 VACCINE (3 - Booster for Pfizer series) COVID-19 VACCINE (3 - Booster for Pfizer series) [facility] Start: 06-25-2021 FUVGENERAL, Provider : Nedra Calderon, Status: Pen, Time: 2:00 PM FUVGENERAL, Provider: Nedra Calderon, Status: Pen, Time: 2:00 PM YL-VTSR-[place] Work Phone: Start: 06-25-2021 FUVGENERAL, Provider : Nedra Calderon, Status: Pen, Time: 11:00 AM FUVGENERAL, Provider: Nedra Calderon, Status: Pen, Time: 11:00 AM RW-BDQY-Plnb [place] Work Phone: Start: 05-20-2021 FUV, Provider: Koffi Uriarte, Status: Pen, Time: 3:40 PM FUV, Provider: Koffi Uriarte, Status: Pen, Time: 3:40 PM EQ-JRXS-Odfo [place] Work Phone: Start: 03-31-2021 FUV, Provider: Koffi Uriarte, Status: Pen, Time: 2:00 PM FUV, Provider: Koffi Uriarte, Status: Pen, Time: 2:00 PM VR-LFYU-Pqht [place] Work Phone: Start: 03-26-2021 COVID-19 Vaccine (3 - Pfizer series) COVID-19 Vaccine (3 - Pfizer series) [facility] Start: 03-19-2020 Influenza vaccination Flu vaccine (# 1) [place], [place] Start: 03-02-2018 DTaP/Tdap/Td vaccine (7 - Td) DTaP/Tdap/Td vaccine (7 - Td) [place] Start: 03-02-2018 Urine microalbumin profile DTAP,TDAP,TD (7 - Td or Tdap) [facility] Start: 2014 Screening for malignant neoplasm of cervix [facility] Start: 10-02-2011 HEPATITIS C SCREENING HEPATITIS C [facility] Start: 10-02-2011 Hepatitis C screening Hepatitis C [facility] Start: 10-02-2011 HIV SCREENING HIV SCREENING [facility] Start: 2008 HIV screening HIV screen [place], [place] Start: 2005 Adult depression screening assessment DEPRESSION SCREENING [facility] Start: 2004 HPV vaccine (1 - 2-dose series) HPV vaccine (1 - 2-dose series) [place], [place] Start: 04-09-1999 Varicella vaccination Varicell a Vaccines (1 of 2 - 2-dose childhood series) [facility] Start: 1994 Varicella vaccine (1 of 2 - 2-dose childhood series) Varicella vaccine (1 of 2 - 2-dose childhood series) [place] Start: 1993 HIV screening HIV Screening [facility] Start: 1993 Lipid panel Lipid Panel [facility] Start: 1993 Yearly Adult Physical Yearly Adult P hysical [facility] End: 04-18-2020 CT Head WO Contrast CT Head WO Contrast Imaging STAT Once for 1 Occurrences starting 04/18/2020 until 04/18/2020 [place] Comment on above: Once for 1 Occurrenc es starting 04/18/2020 until 04/18/2020 CT Head WO Contrast CT Head WO C ontrast Imaging STAT 04/18/2020 11:15 PM EDT [place] End: 04-18-2020 Prolactin Prolactin Lab STAT One Time for 1 Occurrences starting 04/18/2020 until 04/18/2020 [place] Comment on above: One Time for 1 Occur rences starting 04/18/2020 until 04/18/[address] AT 04/18/2020 11:17 PM EDT [place] SM-EUAT-Tfhy [place] Work Phone: [facility] NEGATED: Highlighted row has been ruled out! Planned Goals not documented DD-XJAY-Ospk [place] Work Phone: Immunizations Immunization Date Immunization Notes Care Provider Radha laura 04-21-2022 influenza, injectabl e, quadrivalent, preservative free Koffi A Uriarte Work Phone: EE-ERZO-Jahj [place] Work Phone: 04-18-2021 influenza, injectabl e, quadrivalent, preservative free Koffi A Uriarte Work Phone: II-GJDQ-Rakv [place] Work Phone: 01-29-2021 Pfizer-BioNTech COVID-19 Vacc 30 MCG/0.3ML Intramuscular Suspension Koffi A Uriarte Work Phone: LY-WXPB-Ecsz [place] Work Phone: 01-08-2021 Pfizer-BioNTech COVID-19 Vacc 30 MCG/0.3ML Intramuscular Suspension Koffi A Uriarte Work Phone: QY-RTPX-Gagy [place] Work Phone: 05-09-2019 Influenza, injectabl e, Madin [place] Canine Kidney, preservative free, quadrivalent Koffi A Uriarte Work Phone: [employer] Work Phone: 04-28-2018 influenza, injectabl e, quadrivalent, contains preservative Koffi Uriarte Work Phone: [employer] Work Phone: 02-16-2018 tetanus toxoid, redu diego diphtheria toxoid, and acellular pertussis vaccine, adsorbed Koffi Rosas Uriarte Work Phone: [employer] Work Phone: 05-06-2017 influenza, injectabl e, quadrivalent, preservative free Koffi Rosas Uriarte Work Phone: [employer] Work Phone: 01-14-2016 pneumococcal polysaccharide vaccine, 23 valent Koffi Alison [employer] Work Phone: AG-LCFC-[place]ep [place] Work Phone: 11-30-2014 tuberculin skin test ; purified protein derivative solution, intradermal [facility], [place] 12-15-2013 tuberculin skin test ; purified protein derivative solution, intradermal [facility], [place] 03-02-2008 tetanus toxoid, redu diego diphtheria toxoid, and acellular pertussis vaccine, adsorbed [facility] 02-25-2007 meningococcal polysaccharide (groups A, C, Y and W-135) diphtheria toxoid conjugate vaccine (MCV4P) [facility], [place] 02-25-2007 Meningococcal, MCV4, unspecified conjugate formulation(groups A, C, Y and W-135) [facility] 03-12-1999 diphtheria, tetanus toxoids and acellular pertussis vaccine [facility] 03-12-1999 diphtheria, tetanus toxoids and acellular pertussis vaccine, unspecified formulation Koffi Uriarte Work Phone: [employer] Work Phone: 03-12-1999 haemophilus influenz ae type b vaccine, HbOC conjugate [facility] 03-12-1999 measles, mumps and rubella virus vaccine [facility] 03-12-1999 poliovirus vaccine, inactivated [facility], [place] 03-12-1999 trivalent poliovirus vaccine, live, oral [place], [place] 01-07-1995 diphtheria, tetanus toxoids and acellular pertussis vaccine [facility] 01-07-1995 diphtheria, tetanus toxoids and acellular pertussis vaccine, unspecified formulation Koffi Uriarte Work Phone: [employer] Work Phone: 10-22-1994 haemophilus influenz ae type b vaccine, conjugate unspecified formulation [place], [place] 10-22-1994 haemophilus influenz ae type b vaccine, PRP-OMP conjugate Koffi A [employer] Work Phone: [employer] Work Phone: 10-22-1994 Hib, unspecified [place] 10-22-1994 measles, mumps and rubella virus vaccine [facility] 10-22-1994 poliovirus vaccine, inactivated [facility] 06-18-1994 hepatitis B vaccine, pediatric or pediatric/adolescent dosage Koffi Uriarte Work Phone: [facility] 06-18-1994 hepatitis B vaccine, unspecified formulation [place], [place] 04-16-1994 diphtheria, tetanus toxoids and acellular pertussis vaccine [facility], [place] 04-16-1994 diphtheria, tetanus toxoids and pertussis vaccine [facility] 04-16-1994 haemophilus influenz ae type b vaccine, conjugate unspecified formulation [place], [place] 04-16-1994 haemophilus influenz ae type b vaccine, HbOC conjugate Brendan Blankenship PA-C Work Phone: [facility] 04-16-1994 haemophilus influenz ae type b vaccine, PRP-OMP conjugate Koffi Alison Uriarte Work Phone: [employer] Work Phone: 04-16-1994 Hib, unspecified [place] 04-16-1994 poliovirus vaccine, inactivated [facility] 04-16-1994 trivalent poliovirus vaccine, live, oral [facility], [place] 02-12-1994 diphtheria, tetanus toxoids and acellular pertussis vaccine [place] 02-12-1994 diphtheria, tetanus toxoids and pertussis vaccine [facility] 02-12-1994 haemophilus influenz ae type b vaccine, conjugate unspecified formulation [facility], [place] 02-12-1994 haemophilus influenz ae type b vaccine, HbOC conjugate Brendan Pattie TYSONC Work Phone: [facility] 02-12-1994 haemophilus influenz ae type b vaccine, PRP-OMP conjugate Koffi Clementeson Work Phone: [employer] Work Phone: 02-12-1994 Hib, unspecified [facility], [place] 02-12-1994 poliovirus vaccine, inactivated [facility] 02-12-1994 trivalent poliovirus vaccine, live, oral [facility], [place] 01-08-1994 hepatitis B vaccine, pediatric or pediatric/adolescent dosage Koffi Uriarte Work Phone: [facility] 01-08-1994 hepatitis B vaccine, unspecified formulation [facility] , [place] 1993 diphtheria, tetanus toxoids and acellular pertussis vaccine [facility], [place] 1993 diphtheria, tetanus toxoids and pertussis vaccine [facility] 1993 haemophilus influenz ae type b vaccine, conjugate unspecified formulation [facility], [place] 1993 haemophilus influenz ae type b vaccine, HbOC conjugate Brendan Lilibethpp PA-C Work Phone: [facility] 1993 haemophilus influenz ae type b vaccine, PRP-OMP conjugate Koffi Alison Uriarte Work Phone: [employer] Work Phone: 1993 hepatitis B vaccine, pediatric or pediatric/adolescent dosage Koffi Uriarte Work Phone: [facility] 1993 hepatitis B vaccine, unspecified formulation [facility] , [place] 1993 Hib, unspecified [place], [place] 1993 poliovirus vaccine, inactivated [facility] 1993 trivalent poliovirus vaccine, live, oral [facility], [place] Payers Date Payer Category Payer Unknown 2020 Unknown MMO MMO [employer] [id number] 2020-Present [phone] [address] [place] [address] PPO [id number] 2019 Unknown [id number] 1993 Unknown [id number] 1993 Unknown [id number] 1993 Unknown [id number] 1993 Unknown [id number] 1993 Unknown [id number] 1993 Unknown [id number] 1993 Unknown [id number] 1993 Unknown [id number] 1993 Unknown [id number] 1993 Unknown [id number] 1993 Unknown [id number] 1993 Unknown [id number] 1959 Unknown [id number] Unknown [id number] Social History Date Type Detail Facility Start: 04-18-2020 End: 04-30-2023 Tobacco smoking status NHIS Never smoker [facility] Start: 04-18-2020 End: 04-30-2023 Tobacco use and exposure Never used [place] Start: 04-18-2020 End: 09-09-2021 Alcohol intake Current drinker of alcohol (finding) [place] Start: 09-19-2019 History SDOH Financial 5 [place] Start: 09-19-2019 History SDOH Food Worry 1 [place] Start: 09-19-2019 History SDOH Transport Med 2 [place] Start: 04-18-2020 Alcohol Comment occasionally [facility] [place], [place] Start: 1993 Sex Assigned At Not on file [place] Start: 04-20-2023 End: 04-30-2023 Exposure to SARS-CoV-2 (event) Not sure [place] Never smoker Never smoker RW-XYTH-Cozr [place] Work Phone: Tobacco smoking status Never [facility] Sex Assigned At Female [facility] NEGATED: Highlighted row - - LI-GDCO-[place]jar [place] Work Phone: NEGATED: Highlighted rowStart: NINF History of tobacco use Passive smoker [facility] Work Phone: Functional Status Date Assessment Result Facility NEGATED: Highlighted row Functional performance Functional status health issues are not documented Disease CO-QBVQ-Zzxv [place] Work Phone: Mental Status Date Assessment Result Facility NEGATED: Highlighted row Cognitive function [Interpretation] Cognitive status health issues are not documented Disease UU-DANI-ZniqJames Ruby Work Phone: Clinical Notes 08-09-2017 to 04-30-2023 Nedra Calderon MD - 04/30/2023 11:30 AM EDTTelephone Encounter - Mary Onofre RN - 03/24/2022 11:55 AM EDTTelephone Encounter - Kavita Sweet, DO - 03/24/2022 11:37 AM EDT Note Date & Type Note Facility 04-30-2023 History of Presen t illness Narrative Carmine Cantu is a 27 y.o. 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 Patient Active Problem List Diagnosis Abnormal weight [...] 5/5 throughout all four extremities. Coordination Right: Yjikij-om-qkhx normal.Left: Pxuobq-xo-wohu normal. Physical Exam Eyes: Extraocular Movements: Extraocular [...] in 1 year documented in this encounter [facility] Work Phone: 11-25-2022 Note EXAMINATION: US PELV [...] authenticated by: HAYLIE RIVER Date: 2022-11-25 17:20 [facility] 04-16-2022 Note HNO ID: [id number] Author: Brendan Blankenship PA-C Service: ? 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 I, Brendan Blankenship, have reviewed this information as documented for accuracy and performed all elements of history taking, and edited the record as necessary. 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 documented in this encounter [facility] 03-19-2022 Miscellaneous Notes LMP 02/11, +hpt. Assisted w initial OBV. Advised to take vitamin w folic acid. First trimester precautions provided. handbook sent in . documented in this encounter [facility] 02-03-2022 Miscellaneous Notes The following approved medication requests have been transmitted electronically. Signed Prescriptions Disp Refills metroNIDAZOLE (FLAGYL) 500 mg tablet 14 tablet 0 Sig: Take 1 tablet by mouth twice daily. for vaginosis. Do not drink alcohol while taking this medication MICHELLE: No Brendan Souza APRN.CNP Pt reporting vag discharge/odor- same symptoms as past +BV dx. Last annual 06/2021. Req for BV medications Pending Prescriptions Disp Refills METRONIDAZOLE 500 MG TABLET 14 tablet 0 Sig: Take 1 tablet by mouth twice daily. for vaginosis. Do not drink alcohol while taking this medication MICHELLE: No documented in this encounter [facility] 09-09-2021 Note HNO ID: [id number] Author: Brendan Blankenship PA-C Service: ? 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 Portions of this record were documented by the [employer]. I, Brendan Blankenship, have reviewed this information as documented for accuracy and performed all elements of history taking, and edited the record as necessary. 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 [...] Medical Decision Making Level: 3 - Low [facility] 07-04-2021 Note HNO ID: [id number] Author: 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 APRN.PACKAGING DESIGNER Service: ? Author Type: Nurse Practitioner Type: [...] Ectopic0 Multiple0 Live Births0 Comment: Menarche 10 Conduit Helper History LMP: 06/07/2021 (Exact Date), Having periods Age at Menarche: Age at First : Age at Menopause: Conduit Helper History Comments: Sexual Activity: Yes; Male; same [...] external genitalia normal, normal Bartholin's glands, urethra, Coggon's glands, no vulvar lesions, no cervical lesions, [...] type of detergents for washing undergarments, wiping [id number], sleep in loose shorts without underwear, shower immediately after intercourse/exercise, make sure perineum is gently blotted dry before dressing. Avoid scratching, scented pads/tampons/toilet papers, cranberry juice, bubble baths, and intercourse until symptoms are relieved. NO douching. If you shave, use a new razor at least twice monthly. 5) Follow up one year or sooner as needed 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 APRN.[facility] 08-09-2017 History of Past i llness Narrative Problem Noted Date Resolved Date NO SHOW 08/09/2017 08/09/2017 documented as of this encounter (statuses as of 02/03/2022) [facility] History of Past illness Narrative* Problem Noted Date Resolved Date NO SHOW 08/09/2017 08/09/2017 documented as of this encounter (statuses as of 03/19/2022) [facility] History of Past illness Narrative* Problem Noted Date Resolved Date NO SHOW 08/09/2017 08/09/2017 documented as of this encounter (statuses as of 03/24/2022) [facility] + Plan note No data available for this section [facility] Diagnosis Acute vaginitis- Primary Vaginitis and vulvovaginitis, unspecified [facility] Diagnosis Bleeding in early - Primary Unspecified hemorrhage in early , unspecified as to episode of care documented in this encounter [facility] note* Diagnosis Seizure (CMS/HCC)- Primary Other convulsions documented in this encounter [facility] Work Phone: History of Present illness Narrative* The patient states she has been doing well with her blood pressure control since the last visit. She has no comorbid illnesses. She has no significant interval events. * Symptoms: The patient is currently asymptomatic. * Less anxiety lately. Broke up with her boyfriend. 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 * BP is much improved on lisinopril. * Saw gyne for discharge. * was told she had BV and chlamydia. * took antibiotics, got better for a few weeks and now she is having discharge again and odor. no pelvic pain. [employer] Work Phone: History of Present illness Narrative* The patient states she has been doing well with her blood pressure control since the last visit. She has no comorbid illnesses. She has no significant interval events. * Symptoms: The patient is currently asymptomatic. * Less anxiety lately. Broke up with her boyfriend. * Working in [employer] at the [employer]. * BP is much improved on lisinopril. * Saw gyne for discharge. * was told she had BV and chlamydia. * took antibiotics, got better for a few weeks and now she is having discharge again and odor. no pelvic pain. 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 ACP-Advance Directive ACP-Power of Driver License Agent Documents on File Type Date Recorded 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 * Seizure (Vietnamese) documented in this encounter Additional Source Comments INFORMATION SOURCE (unrecogn ized section and content) DATE CREATED AUTHOR 01/11/2018 [facility] DATE CREATED AUTHOR AUTHOR'S ORGANIZ ATION 04/19/2020 [facility] DATE CREATED AUTHOR AUTHOR'S ORGANIZ ATION 05/11/2020 [facility] DATE CREATED AUTHOR AUTHOR'S ORGANIZ ATION 12/29/2020 [facility] DATE CREATED AUTHOR AUTHOR'S ORGANIZ ATION 04/14/2022 [facility] DATE CREATED AUTHOR AUTHOR'S ORGANIZ ATION 04/20/2022 [facility] DATE CREATED AUTHOR AUTHOR'S ORGANIZ ATION 08/11/2022 [facility] DATE CREATED AUTHOR AUTHOR'S ORGANIZ ATION 11/29/2022 [facility] DATE CREATED AUTHOR AUTHOR'S ORGANIZ ATION 12/27/2022 [facility] DATE CREATED AUTHOR AUTHOR'S ORGANIZ ATION 05/02/2023 [facility] tals Ambulatory DATE CREATED AUTHOR AUTHOR'S ORGANIZ ATION 07/16/2023 [facility] EPIC Reason for Visit (unrecogniz ed section and content) Status Reason Specialty Diagnoses / Procedures Referre d By Contact Referred To Contact Closed EEG Diagnoses Generalized idiopathic epilepsy and epileptic syndromes, not intractable, without status epilepticus Procedures EEG 16+ CHANNEL TELEMTERY 24HR Spike Garcia MD [address] [facility] [address] [place] [address] [facility] [address] [place] [address] Status Reason Specialty Diagnoses / Procedures Referre d By Contact Referred To Contact Closed Radiology Diagnoses Generalized idiopathic epilepsy and epileptic syndromes, not intractable, without status epilepticus Procedures MRI-BRAIN WO & W CONTRAST Spike Garcia MD [address] [facility] [address] [place] [address] [facility] [address] [place] [address] Reason Comments Seizures Seizure like activit y [...] or prosecute any alcohol or drug abuse patient.[facility] the event this information is protected by the Federal Confidentiality of Alcohol and Drug Abuse Patient Records regulations: The Federal rules restrict any use of the information to criminally investigate or prosecute any alcohol or drug abuse patient.[facility] the event this information is protected by the Federal Confidentiality of Alcohol and Drug Abuse Patient Records regulations: The Federal rules restrict any use of the information to criminally investigate or prosecute any alcohol or drug abuse patient.[facility] Care Teams (unrecognized sec tion and content) Early Childhood Coordinator Relationship Specialty Start Date End Date Koffi Uriarte MD PCP - General Family Practice 08/17/16 Early Childhood Coordinator Relationship Specialty Start Date End Date Koffi Uriarte MD PCP - General Family Practice 08/17/16 Early Childhood Coordinator Relationship Specialty Start [place] [address] [place] [address] PCP - General 08/14/20 [place] [address] [place] [address] PCP - MMO ACO PCP 02/16/23 FOR [...] BE BASED ON THE PRIMARY CLINICAL RECORDS. [facility] [facility]. provides no warranty or guarantee of the accuracy or completeness of information in this document.
[2023-07-17 10:52] VITALS: BP 126/63; PULSE 76
--- NOTE | 2023-07-17 11:15 | US_ITS ---
[address] [address] Patient Name: PRINCESS CANTU MRN: [facility]:[id number] date: 1995 Sex: F Assigned Patient Location: [place] Current Patient Location: Accession/Order Number: [id number] Exam Date: 07/17/2023 11:20 Report Date: 07/20/2023 07:11 At the request of: LISA ZIMMERMAN Procedure: US OB BPP w non-stress EXAMINATION: US OB BPP w non-stress HISTORY: HYPERTENSION COMPARISON: No relevant comparison available. TECHNIQUE: Ultrasound biophysical profile was performed in the radiology department. . FINDINGS: BREATHING MOVEMENTS: 2.0 GROSS BODY MOVEMENTS: 2.0 TONE: 2.0 QUALITATIVE AMNIOTIC FLUID VOLUME: 2.0 PRESENTATION: BREECH HEART RATE: 135.7 bpm H.B./min AMNIOTIC FLUID VOLUME: 15.3 cm cm GESTATIONAL AGE: 34 weeks 5 days CONCLUSION: Total biophysical profile score: 8.0 Electronically authenticated by: HAYLIE RIVER Date: 07/20/2023 07:11
== END 2023-07-17 12:00 | disposition home or self-care (01) ==
LOC: US 08:31 → FBC 10:46
PROVIDERS: Visit Provider Obstetrics & Gynecology
DX: O16.3 Unspecified maternal hypertension, third trimester (principal); Z3A.34 34 weeks gestation of pregnancy
CPT/HCPCS: 76818

== ENCOUNTER 2023-07-21 07:07 | Outpatient (OUT) | payer OTHER, SELFPAY ==
--- OUTSIDE RECORDS SUMMARY | 2023-07-21 07:11 | XMS_ITS | CCD ---
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 Koffi Rosas Primary Care Dario Uriarte, Dr. Koffi Rosas Attending Dario Uriarte, Dr. Koffi Rosas Referring Koffi Oquendo MD Primary Care Provider Koffi Uriarte MD Unavailable [phone] NEDRA CALDERON Attending Unavailable KOFFI URIARTE Primary [facility] Unavailabl SHIMA Joyce Attending Unavailable SHIMA RODAS Attending Unavailable SHIMA ROADS Attending Unavailable SHIMA RODAS Attending Unavailable Allergies Allergy Classification Reported Allergen(s) Allergy Type Date of Onset Reaction(s) Facility (1 source) No Known Medication Allergies; Translations: [No Known Medication Allergies] Propensity to adverse reactions (disorder) [facility] Repository Medications Current Medications Medication Drug [...] # 120 tab(s), Refills(s) 0, [facility]: [id number] Start Date: 06/05/19 Status: Ordered ondansetron [...] 10-02-2022 10-02-2022 Episodic Unclassified (1 source) R07.9 60491/8 Onset: 05-04-2017 Unclassified (5 sources) Patient encounter status; Translations: [Encounter for audiology evaluation] NEGATED: Highlighted row has not occurred!Residual codes; unclassified (17 sources) Disease Episodic Results Test Name Value Interpretation Reference Range Facility DHEA SERUMon 11-20-2022 Dehydroepiandrosterone (DHEA) 656 ng/dL Normal 31-701 [facility] Comment on above: Performed By: #### D LAMAR. #### [facility] [address] [place] [address] Dr. Vish Brown ANTI-MULLERIAN HORMONEon Anti-Mullerian Hormone (AMH) 4.47 ng/mL Normal [facility] Comment on above: Result Comment: For assays employing antibodies, the possibility exists for interference by heterophile antibodies in the samples.1 1.Favio Campos Interferences in Immunoassays - still a threat. Clin. Chem. 2000; 46: 1114-6557. This test was developed and its performance characteristics determined by [employer]. It has not been cleared or approved by the Food and Drug Administration. Reference Range: Females 26 - 30y: 1.03 - 11.10 Median 4.20 AMH concentrations of >= 1.06 ng/mL is correlated with a better response to ovarian stimulation, produced more retrievable oocytes and higher odds of live according to Gabi et al. Fertility and Sterility. 2010: 94:3522-8011. The current AMH test method correlates with [...] AMH-secreting ovarian tumor. Performed By: #### L [facility] #### [facility] [address] [place] [address] Dr. Vish Brown DHEA-SULFATEon 11-17-2022 DHEA-Sulfate 449.0 ug/dL Critically high 84.8-378.0 [facility] Comment on above: Performed By: #### L [facility] #### [facility] [address] [place] [address] Dr. Vish Brown ESTRADIOLon 11-17-2022 Estradiol 34.3 pg/mL Normal [facility] Comment on above: Result Comment: Adul t Female: Follicular phase 12.5 - 166.0 Ovulation phase 85.8 - 498.0 Luteal phase 43.8 - 211.0 Postmenopausal <6.0 - 54.7 1st trimester 215.0 - >4300.0 Ele ECLIA methodology Performed By: #### E CHLOE #### [facility] [address] [place] [address] Dr. Vish Brown FSHon 11-17-2022 FSH 6.1 mIU/mL Normal [facility] Comment on above: Result Comment: Adul t Female: Follicular phase 3.5 - 12.5 Ovulation phase 4.7 - 21.5 Luteal phase 1.7 - 7.7 Postmenopausal 25.8 - 134.8 Performed By: #### L [facility] #### [facility] [address] [place] [address] Dr. Vish Brown LUTEINIZING HORMONE (LH)on 0 11-17-2022 LH 4.5 mIU/mL Normal [facility] Comment on above: Result Comment: Adul t Female: Follicular phase 2.4 - 12.6 Ovulation phase 14.0 - 95.6 Luteal phase 1.0 - 11.4 Postmenopausal 7.7 - 58.5 Performed By: #### L SUHAS #### [facility] [address] [place] [address] Dr. Vish Brown PROGESTERONEon 11-17-2022 Progesterone 0.8 ng/mL Normal [facility] Comment on above: Result Comment: Foll icular phase 0.1 - 0.9 Luteal phase 1.8 - 23.9 Ovulation phase 0.1 - 12.0 First trimester 11.0 - 44.3 Second trimester 25.4 - 83.3 Third trimester 58.7 - 214.0 Postmenopausal 0.0 - 0.1 Performed By: #### P TASNEEM #### [facility] [address] [place] [address] Dr. Vish Brown CBC AUTO DIFFon 11-16-2022 BASO # 0.0 103/ul Normal 0.0-0.1 [facility] Comment on above: Performed By: #### L BRUNA #### [facility] [address] [place] [address] Dr. Vish Brown Basophils/100 WBC (Bld) 0.5 % Normal 0.2-2.0 [facility] Comment on above: Performed By: #### L BRUNA #### [facility] [address] [place] [address] Dr. Vish Brown EO # 0.3 103/ul Normal 0.0-0.7 [facility] Comment on above: Performed By: #### L SUHAS #### [facility] [address] [place] [address] Dr. Vish Brown Eosinophils/100 WBC (Bld) 4.0 % Normal 0.9-7.0 [facility] Comment on above: Performed By: #### L BCL #### [facility] [address] [place] [address] Dr. Vish Brown Erythrocyte distribution width (RBC) [Ratio] 12.0 % Normal 11.0-15.0 [facility] Comment on above: Performed By: #### L BCL #### [facility] [address] [place] [address] Dr. Vish Brown Hematocrit (Bld) [Volume fraction] 39.1 % Normal 36.0-48.0 [facility] Comment on above: Performed By: #### L BCL #### [facility] [address] [place] [address] Dr. Vish Brown Hemoglobin (Bld) [Mass/Vol] 13.0 g/dL Normal 12.0-16.0 [facility] Comment on above: Performed By: #### L BCL #### [facility] [address] [place] [address] Dr. Vish Brown IG # 0.02 10e3/ul Normal 0.00-0.03 [facility] Comment on above: Performed By: #### L BCL #### [facility] [address] [place] [address] Dr. Vish Brown IG % 0.3 % Normal 0.0-0.5 [facility] Comment on above: Performed By: #### L BCL #### [facility] [address] [place] [address] Dr. Vish Brown LYMPH # 2.5 103/ul Normal 1.2-3.8 [facility] Comment on above: Performed By: #### L BCL #### [facility] [address] [place] [address] Dr. Vish Brown Lymphocytes/100 WBC (Bld) 32.4 % Normal 20.5-60.0 [facility] Comment on above: Performed By: #### L BCL #### [facility] [address] [place] [address] Dr. Vish Brown MANUAL DIFF REQ NO Normal [facility] Comment on above: Performed By: #### L BRUNA #### [facility] [address] [place] [address] Dr. Vish Brown MCH (RBC) [Entitic mass] 29.9 pg Normal 26.7-34.0 [facility] Comment on above: Performed By: #### L BRUNA #### [facility] [address] [place] [address] Dr. Vish Brown MCHC (RBC) [Mass/Vol] 33.2 g/dL Normal 29.9-35.2 [facility] Comment on above: Performed By: #### L BRUNA #### [facility] [address] [place] [address] Dr. Vish Brown MCV (RBC) [Entitic vol] 89.9 fL Normal 81.0-99.0 [facility] Comment on above: Performed By: #### L BRUNA #### [facility] [address] [place] [address] Dr. Vish Brown MONO # 0.6 103/ul Normal 0.3-0.8 [facility] Comment on above: Performed By: #### L BRUNA #### [facility] [address] [place] [address] Dr. Vish Brown Monocytes/100 WBC (Bld) 7.4 % Normal 1.7-12.0 [facility] Comment on above: Performed By: #### L BRUNA #### [facility] [address] [place] [address] Dr. Vish Brown NEUT # 4.3 103/ul Normal 1.4-6.5 [facility] Comment on above: Performed By: #### L BCL #### [facility] [address] [place] [address] Dr. Vish Brown Neutrophils/100 WBC (Bld) 55.4 % Normal 43.0-75.0 [facility] Comment on above: Performed By: #### L BRUNA #### [facility] [address] [place] [address] Dr. Vish Brown Platelet mean volume (Bld) [Entitic vol] 9.0 fL Critically low 9.5-13.5 [facility] Comment on above: Performed By: #### L [facility] #### [facility] [address] [place] [address] Dr. Vish Brown PLT 277 103/ul Normal 150-450 [facility] Comment on above: Performed By: #### L [facility] #### [facility] [address] [address] [address] Vish Brown RBC 4.35 106/ul Normal 4.20-5.40 [facility] Comment on above: Performed By: #### L [facility] #### [facility] [address] [address] [address] Vish Brown WBC 7.7 103/ul Normal 4.0-11.0 [facility] Comment on above: Performed By: #### L [facility] #### [facility] [address] [address] [address] Vish Brown FREE T4on 11-16-2022 Free T4 [Mass/Vol] 1.08 ng/dL Normal 0.76-1.46 [facility] Comment on above: Performed By: #### F T4 #### [facility] [address] [place] [address] Dr. Vish Brown GLYCOHEMOGLOBIN A1Con 2022 ADA RECOMMENDATION SEE BELOW Normal [facility] Comment on above: Result Comment: ADA RECOMMENDED LIMIT 4.0 - 6.0 ADA THERAPEUTIC TARGET < 7.0 ACTION SUGGESTED > 7.0 Performed By: #### A 1C #### [facility] [address] [place] [address] Dr. Vish Brown Glucose [Mass/Vol] 94 mg/dL Normal [facility] Comment on above: Performed By: #### A 1C #### [facility] [address] [place] [address] Dr. Vish Brown HbA1c (Bld) [Mass fraction] 4.9 % Normal 4.5-6.2 [facility] Comment on above: Performed By: #### A 1C #### [facility] [address] [address] [address] Vish Brown PREG QUANT HCGon 11-16-2022 HCG QUANT <1 Normal [facility] Comment on above: Performed By: #### P REGQNT, TSH #### [facility] [address] [address] [address] Vish Brown HCG RANGE SEE BELOW Normal [facility] Comment on above: Result Comment: 5-50 0.2-1 WEEK 50-500 1-2 WEEKS 100-5,000 2-3 WEEKS 500-10,000 3-4 WEEKS 1,000-50,000 4-5 WEEKS 10,000-100,000 5-6 WEEKS 15,000-200,000 6-8 WEEKS 10,000-100,000 2-3 MONTHS Performed By: #### P REGQNT, TSH #### [facility] [address] [place] [address] Dr. Vish Brown TSHon 11-16-2022 TSH 2.030 uIU/mL Normal 0.358-3.740 [facility] Comment on above: Performed By: #### P REGQNT, TSH #### [facility] [address] [place] [address] Dr. Vish Brown 19-49 Yearson 07-31-2022 19-49 [...] Occasional alcohol (more content not included)... Normal [facility] Tobacco Screening.on 023 Adult depression screening assessment No [facility] Work Phone: Fall risk assessment a) No falls within the last year [facility] Work Phone: Tobacco use status CPHS b) No M [facility] Work Phone: B-HCG SerPl-aCncon 2 HCG.beta subunit Qn m[IU]/mL Normal <5.0 [facility] Comment on above: Order Comment: Speci men Type: BLOOD SPECIMENOrdering Facility: [facility] Address: [address] [place] [address] Result Comment: Soledad kyle Performed By: #### G CCT #### [place] [address] BACTERIAL VAGINOSIS AMPLIFIC ATIONon 04-16-2022 Lactobacillus crispatus+gasseri+jense james + Gardnerella vaginalis + Atopobium vaginae rRNA HUMERA+probe Ql (Vag fld) Negative Normal Negative for bacterial vaginosis [facility] Comment on above: Order Comment: Speci men Type: SWAB Ordering Facility: [facility] Address: [address] [place] [address] Performed By: #### C VTV, BVAMP #### [facility] CLIA [id number] [address] [place] [address] [facility] C. trachomatis+N. gonorrhoea e DNA HUMERA+probe Ql (Unsp spec)on 04-16-2022 C. trachomatis DNA HUMERA+probe Ql (Unsp spec) Negative Normal Negative for Chlamydia trachomatis by amplificaton [facility] Comment on above: Order Comment: Speci men Type: SWAB Ordering Facility: [facility] Address: [address] [place] [address] Performed By: #### C VTV, BVAMP #### [facility] CLIA [id number] [address] [place] [address] [facility] N. gonorrhoeae DNA HUMERA+probe Ql (Unsp spec) Negative Normal Negative for Neisseria gonorrhoeae by amplification [facility] Comment on above: Order Comment: Speci men Type: SWAB Ordering Facility: [facility] Address: [address] [place] [address] Performed By: #### C VTV, BVAMP #### [facility] CLIA [id number] [address] [place] [address] [facility] MITCH / TRICHOMONAS AMPLIF ICATIONon 04-16-2022 MITCH / TRICHOMONAS AMPLIFICATION MITCH SPECIES GROUP RNA: Negative for Mitch species MITCH GLABRATA RNA: Negative for Mitch glabrata TRICH VAG AMPLIFICATION RNA: Negative for Trichomonas vaginalis by amplification Normal [facility] Comment on above: Performed By: #### C VTV, BVAMP #### [facility] CLIA [id number] [address] [place] [address] 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 I, Brendan Blankenship, have reviewed this information as documented for accuracy and performed all elements of history taking, and edited the record as necessary. 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 #:[id number] BACTERIAL VAGINOSIS AMPLIFICATION [SQBVAMP] Order #: [id number]. #:[id number] GC/CHLAMYDIA DNA DET [SQGCCAMP] Order #: [id number]. #:[id number] SYPHILIS TOTAL W/REFLEX [SQSYPHTX] Order #: [id number] FUTURE HIV 1 2 COMBO(AG/AB),WITH REFLEX TO DIFFERENTIATION [SQHIV12] Order #: [id number] FUTURE HEP C AB IA W/CONF SCRN [LNSVWU8B] Order #: [id number] FUTURE HEP B SURF AG SCRN [SQHBSAG] Order #: [id number] FUTURE Prescriptions as of 04/16/2022 - lamoTRIgine [...] Encounter Status:Closed by BRENDAN BLANKENSHIP on 04/16/22 [facility] HBV surface Ab IA Ql (S)on 0 04-16-2022 HBV surface Ag Ql (S) Negative Normal Negative [facility] Comment on above: Order Comment: Speci men Type: BLOOD SPECIMENOrdering Facility: [facility] Address: [address] [place] [address] Performed By: #### G CCT #### [place] [phone] HCV Ab Ser Qlon 04-16-2022 HCV Ab Ql (S) Negative Normal Negative [facility] Comment on above: Order Comment: Speci men Type: BLOOD SPECIMEN [facility]ing Facility: [facility] Address: [address] [place] [address] Result Comment: The result suggests no evidence of active infection with Hepatitis C virus. Should recent infection be suspected, repeat testing may be considered 4-6 weeks after this draw. Performed By: #### 1 6128-1 #### [facility] CLIA [id number] [address] [place] [address] [place] HIV 1+2 Ab IA Qlon 2 HIV 1 and 2 Ab IA.rapid Nom Normal [facility] Comment on above: Order Comment: Speci men Type: BLOOD SPECIMENOrdering Facility: [facility] Address: [address] [place] [address] Result Comment: Test not indicated. Performed By: #### G CCT #### [place] [phone] HIV 1+2 Ab+HIV1 p24 Ag IA Ql Non-Reactive Normal Nonreactive [facility] Comment on above: Order Comment: Speci men Type: BLOOD SPECIMENOrdering Facility: [facility] Address: [address] [place], [place] [address] Performed By: #### G CCT #### [place] [phone] HIVINT Normal [facility] Comment on above: Order Comment: Speci men Type: BLOOD SPECIMENOrdering Facility: [facility] Address: [address] [place] [address] Result Comment: No e vidence of HIV-1 or HIV-2 infection. Should recent infection be suspected, repeat testing may be considered 2-3 weeks after this draw. [place] Rev. Code 3701.243(E): This information has been [...] diagnoses. Performed By: #### G CCT #### [place] [phone] Reagin and Treponema pallidu m IgG and IgM [Interp]on 04-16-2022 SYPHILIS INTERPRETATION Cannot exclude r ecent Treponemal infection if specimen collected within 7-10 days after appearance of suspect lesions or 2-3 weeks after an exposure. Clinical correlation is required. Normal [facility] Comment on above: Order Comment: Speci men Type: BLOOD SPECIMENOrdering Facility: [facility] Address: [address] [place] [address] Performed By: #### G CCT #### [place] [phone] T. pallidum IgG+IgM IA Ql (S) Non-Reactive Normal Nonreactive [facility] Comment on above: Order Comment: Speci men Type: BLOOD SPECIMENOrdering Facility: [facility] Address: [address] [place] [address] Performed By: #### G CCT #### [place] [phone] Coding Summary.on 03-27-2022 Coding Summary. CD:[id number] Gh 0bWw+PGhlYWQ+CY8PTSOsW 50xoIIjsL1CT0vBCN1SJJJ QRGPXTX9UEE0rbPM9XEnfQ 2VybiAv YknahYAvWG55KYf8QDG0bW jvUVujfQ1jpHWnD2p8RjLw SL36xH37AOufTPZlOqE4Ie ZpbjsgbWFy Z7zcRyCflVStYkn+PHRhYm xlIHdpZHRoPScxMDAlJyBz lIjmQM1qIu7xYJXaYWCtkW xhcHNlOiBj t9xpLOOpBHrcGF8dtLiaA4 IkmQS9LZMik5l7Ym20rOE+ NHQbQZH5sOnwJFodn683Mh Nsr9waBUE6 bDWhUQowEUS0Z98da8N1ZK EnJTCuJUC0iFF5dN9qsZwm bbhqG7NxfKXgMhK5KGR7kM ZetN6jcAcu nuntcR3rDqt+E11MOW0MDB COZY3OJkb5D9PrHmfhyKB+ LG78XRAlWM25qVLoaGJuq3 qnwBv6VbDz JORtDTL8dAobLZnii9MkXN IeJ68szINcz9M6OZNqwLtx aLRtHkNqfKI6qP5hLCxvei cnx5fyccki Lvzoc7hrjh48sC29B20bBH mvSXEyNXA3IZGjGAXueAwg vn2eqO4nEc4+WItki1twf4 fhhQj4DyPh ANZmetEucWnoGKJ8q9SeHb 91T0AmpFpvk4QrUiw7na18 zLSum6A4jQM2RMxdLCWkzN 1nRQgjLcW1 XRXdOnZicX25zQBjBHwbFo 6lbDokyDogVK9iCRBmdqld FKUwiH9uUKWboOHmhShzPK 4wNTBpbjtm r095KpJrUCJ9DQBvnLMfU8 HlbK5cCvIgUXUkPTFwW1Wu sKEsCCxaX583HWznFaZ4JS AotzQiK0Av MWZlrJyjOsA7t9L8Hc1Gl3 PwtycdOVB7ARvgMDF2ScO9 SxUaFsQ9E1OfLud0DFQloU miPV9dW6Vf VGNtzjtmygyorYO8VRCnUE GmlA86oQUwTAqeRm4eu4A3 f399QFWsLVGxhS03Pi3gsG ogMTBwdCBU cS0cdknna3lkcbjjUtEtXF ZkYJd3UNp1LNRszWysVnWb HCZ9QiE7HJN0sGSzgH7kiY hdspdvnI1l Oyc+G66avY7kUJP8FCB6vd wpLYXwcfSxYB40MK53C7Vp PjwvdGFibGU+PGRpdiBzdH pzMD0eBfEz z7ipd1HmTWmwW2OkMIAtRL voIck4IYJaLFV1bDH6yM2x GKCpLZmqg0J4dOG5W7Mvev Zltc9km3by PFWyWRmlS28ldWIfr7Q7QD JrfSR5JNChbZuxRuPiuK39 Oyc+BCQwlSknr5QnElgdv7 hgi3ionGe3 YnBvBHWtakGdsRxxHWL7d7 JaQi00C61iDYpgDQOcCXQj ZKSpNFQyuGhxmc5llG7nQd 8+PGNvbCB3 wUT7gP8xKVYnImG1FYrrH7 50QjRuoMDiHhkxt6lph6fb sYl1YxEtOHXnaaEarVkmSE A0z0HkHn12 J56qYTqnAJOxJLDaFEFyWT FmxUnkdc4exB5eVe1+PC9j a5leeq43qR01gON+PHRkIH Y0yDdwPVkm LAMdtP5tUWjaBoH6TPTdLi EguW09wXYlLSsaYl5suGoc mMmiWY9sIMFrnozbv909Xy Qpe2xuRLXf nWGuAXvoZTP9P67in7T1AA UpJFPnEPJ8kCH6oV3oaYlp bjogbGVmdDsgdmVydGljYW kwGUdpX889 IHRvcDsnPlBhdGllbnQgTm PeLFf9G0PhVfd6YZMwuLxx RB9cjHImIOhcYf8bcJypdP laPL7aXEWc noddo395LaVdv3nuMRZkvU FeMBjzYSR2L13my4N5CWIi YAPfYCI5mPF6rS2czQzwjm ogbGVmdDsg ygAyrIopEZqoJHpdH615JE RvcDsnPkJpcnRoIERhdGU6 XN94EK02qUBqu5R3uHO3C5 BhZGRpbmct mpgndBD2ORBmFZHymF73Iu 3ieNcdOx5vBHYxMGT0BEId xJGbF1BsgI5qDvGxWMFzAR JpZ3SoeRCi QIacY734SUknRvU7UQQvzd UlX4MwCJFyeJllWlE9u0M0 Qw9KD4D0OQ94JJ63mYSrl7 N4qDB2O4Ov ALArhnxkrfzuiDL0NQRoIN CjiX26Hi6jtAayYm2rHCTg IDN2WMIkrVUzF0YilX7hAi AjMDAwMDAw D7DycQAwMEqyO655OZymGf U6MEBdxeYwK1LpGTMesGjd DqS1m0C5Tu7FGNo5MA21KH 97gLFmj2Q4 zCP7Q1CeBECadjsnnxjleU E3EPSgHIWslG70Pf7vgWzp Gs0nOCZdYPD2XENtdEWoY9 SrcT1mVuIw ZGJsSCRdJ3GmeLXrDLlaU2 13GCarBjW4CIIxcuWzW4Af SGQkeLtaCyT4j1Q3Wd1BUM CtPK74MJX7 kTN0MH72KI73E2TwYqhtxO FibGU+PHRhYmxlIHdpZHRo YYfjRCOlSjQdfCcxSG3uMj 9yZGVyLWNv hKczdREcZwRpw0feIILpVO qpTU8dkCjsC8QawRT7LWNs a3b1Ac08I53tE2QyjKR+PG VdkNC7jPX7 fK9oBvVcZbK8UNujM595Uq LekYKnSkenq6xcb9hjyNz4 PcJ2DVYtzdYhiKgyZOC9k1 NeQi44A98b IHdpZHRoPSIxNSUiIHZhbG hhqb2juO0nUy9+PGNvbCB3 vFE3gF3jMtJhBcW6JKaaN2 49InRvcCIv Obknu5ipu3zwhHu0FoQzGR ItdxJdePxdNSF3x9HhXk79 M8KndPnaw6ExCrt4wb75gO Vnj4J8oPR5 Z4CeOYKfebeimEEtfHytOD 3gPCWacutbZDRgkN2nPPEc M9r2MzBpSwF8TJkuB1Meml F5QZGlvRNc HMihPQF0U01dn0C9EVFxPH QjNKG8gOZ1sG5wbKhbiftn bGVmdDsgdmVydGljYWwtYW bgX416CKVr uHztLWWcmI1oXAJjpKKiiQ oeBZ5pOJIusoqyExPNT6ml PE6XA5ICRFU4Y0NuGip5TF LhkNyhUG5s rCMcOWvpHw5upOampBznRP 0vHZCbktbeNTQqiR2vEGGl hLTbhZseYF4uCGHcdkpjb4 07SiBaKLW4 GPVwjAUjC9YzsD2bObJuFY CwVZPhD1YutKHbJYxrE736 JUjeZbV3BSOmucUpR8KkDN FsaWduOiB0 d2A6Tp9eBt6pCi6nHVo7UG 50MC07mHRph4E5gON5B5Zz ITQlkxfdftqrgNO7YPXgKL RmpU81xLWd SWcaBc1nz3K7o119APLtHH KyzO51Ig3dcCyfVEWyvSMQ sZ5vbadcg2gryhytEtMzGR CgSPy6AMg2 QIZtePiiLdVqTWV5JxS6ON Y8bITuhI3ooYegdmkapJ2t Oyc+RfsbHSAbtxV3E9TjQd u6HQMprOpe ES0fmZHwHOvxCq9xpNcziP hmLY3nSLJfpitpFPTigZ9o ISLemRXtpYffXJ9xGPHjlc crq954OfQe ZOZ6YLCvyOXjG2TzhE2yKk YyNZRqBWIdV1ZzlIGeCHsz K648QSktYuX4FLVkttLzE2 FsLWFsaWdu SeN8t3N1Wt2TMF7tkEP4U6 StPwh9KVGftTooDY2whSSr JNcnPy2ktNccsApaTU5fZA BpbjtwYWRk xD7zGIZtrYEyqJwcNL7lMH Kqibdyx136NrVfDNZ7KWKe lJClD1KbeO6hEuRnCZTlGF CoT2QnlWMu QAvyQ913EVxeUnU0MWXari HaO8MuGFOolHqgDqV6k2L6 Au9WaCJvJTVjZN08WF28VX 55G3QkOshv dGFibGU+PHRhYmxlIHdpZH GpKCxsQYVcJaZwnLbhIM6y Rt0tKEZqVPZesCjzzRWuUw Dyk5qmJERj DFtqPM1wwGwzG6JttIJ5HJ Cvp5q0Wj32R35yR2UutWW+ JGAoeRK0hXB9lJ1vMgTfEi A5MQcaV498 CpHkdKMyQfmeq0tpv6ymcO l5GxPzGQRinfMecMdhIPV4 r3FiDp53D27fRRqsIPEnNF IyMCUiIHZh vHrohu7mmF8iVk2+PGNvbC H2lYB8rC6tPcJdGbV8HVan A081DmHzcERuPaqgF18gJ8 JvdXA+PHRy Qcn8FZYxePgkNV6mfSQmOW qfMg3gCBR9RkAwUvRoJGlk U4WfYKCqzkjtawaxxBR9LC WjBVEheZ79 Oo7ueCyxXq8rZOKrTLL6VP PleJRyP3BivF3fNqScHDBn FXBjN3TiyCFtJRzeC137HO mfDbR8PRTl jrRdI3WuADUdzEskSfI5f3 W8Hk9XcOjeiPAgWH5kXfFr EVh8V4TvPum0PVBpvSilHM 0ncGFkZGlu Ak9jlYpgiPzlEY2iJJIivc yby030KkJwf5mkXRQhwTOn IIpmZLP3J76ny4C1ZXGdPV BjIEL7yPH1 vE8ddMwakczawCCizMovjz ZmaFseFMlqJQfmC269UBLq pMkpAbZSKvb8E8PdCkd0BF YfdIsdNF2m tYYjVElmWd8xvZineZqlBV 4xVDUhkkdyp895HhAde2qn WSWdtCYqBYbsWDP1B85vg2 H6KJMyQOTm DBX5mFU7gW5cuYrxqajqbT VmdDsgdmVydGljYWwtYWxp W825DMZyzVaaPg3DCst3G7 OvUow7WWFi oWaoII5kvUGwNFlrUq6fyD vxyUblLF8fADIzscbwn352 WjVkt8giCNAokHShRNcbCM J9W38le0U3 RXKyJZShWFL3jQV7qZ2phA lnbjogbGVmdDsgdmVydGlj OJnnATdsT835SCWyiJpaUe BheWVyOjwv dGQ+HS41fu72J1ZdOqnqIs k0TSHrCJX4aFY8qD8vSEWl FXcsm3O5rHB4H4DpxqQgnq 5zu1gvFLWe ZTog (more content not included)... Normal [facility] BhCG Quanton 03-24-2022 HCG.beta subunit Qn 1 m[IU]/mL Normal 1-3 [facility] Comment on above: Result Comment: GEST ATIONAL AGE HCG RANGE (mIU/mL) NON- <1-3 0.2-1 WEEKS 5-50 1-2 WEEKS 50-500 2-3 WEEKS 100-5,000 3-4 WEEKS 500-10,000 4-5 WEEKS 1,000-50,000 5-6 WEEKS 10,000-100,000 6-8 WEEKS 15,000-200,000 8-12 WEEKS 10,000-100,000 Performed By: #### [id number] #### [facility] [address] [place] [address] CHEMISTRYOrdered By: SYSTEM SYSTEM on 03-24-2022 HCG.beta subunit Qn 1 m[IU]/mL Normal 1 - 3 mIU/mL FTM C Remisol CNPDebora 03-24-2022 [facility] Telephone ([facility]) PRINCESS CANTU ([id number]) 1995 F Date Time Provider Department 03/24/22 KAVITA SWEET [facility] During your visit today, we recorded the [...] Fully Assessed Reason for Visit: Bleeding With [05573] Primary Visit Diagnosis:Bleeding in early [O20.9] Order(s):HCG QUANTITATIVE [SQHCGQT] Order #: [id number] FUTURE Prescriptions as of 03/24/2022 - metroNIDAZOLE [...] Consent for Treatmenton Consent for Treatment [id number] 0CD:127 [facility] Physician Orderon 03-24-2022 Physician Order [id number] 0CD:127 [facility] CNPNon 03-19-2022 CNPN Telephone ([facility]) ALONDRAANNABELN Alison ([id number]) 1995 F Date Time Provider Department 03/19/22 GEORIGA DWYER [facility] During your visit today, we recorded the [...] or bowel/bladder incontinence. She was taken to [facility] in [place]. She had lab work and a CT [...] DAILY. Vitals Vital Signs Recorded: 24Dec2021 11:32AM Wtmpyprehzn11.1 F Heart Rate54 Uxblimyb867 Nnzbyrftt80 Height5 ft 9 in Tbqodk295 lb 1.6 oz BMI Zifxajtayo94.03 kg/m2 BSA Calculated2.11 Tobacco Useb) No Fall Screeninga) No falls within the last year O2 Mivnhtxodc620, RA Physical Exam Constitutional: General appearance: no [...] No falls within the last year MP-Neurolog y-Osyka SJW DO Work Phone: Tobacco use status [...] Nov 17 2021 1:34PM EST (Author) Normal [facility] Tobacco Screening.on 022 Adult depression screening assessment No MP-[facility]SPC-Ramesh n [facility] Phone: Fall risk assessment a) No falls within the last year [facility] n [facility] Phone: Tobacco use status CPHS b) No M P-[facility]amesh n [employer] Phone: Bact Vag Amplificationon Bact Vag Amplification Positive Criticall y abnormal Negative for bacterial vaginosis [facility] Comment on above: Performed By: #### G CCT #### [facility] [address] [place] [id number] CNOVon 09-09-2021 CNOV [facility] ) PRINCESS CANTU ([id number]) 1995 F Date Time Provider Department 09/09/21 10:00 AM [facility] During your visit today, we recorded the [...] History Social History Narrative Single No 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 Portions of this record were documented by the Blue Prints Trimmer. I, Brendan Blankenship, have reviewed this information as documented for accuracy and performed all elements of history taking, and edited the record as necessary. 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 [...] Order(s):MITCH / TRICHOMONAS AMPLIFICATION [SQCVTV] Order #: [id number] BACTERIAL VAGINOSIS AMPLIFICATION [SQBVAMP] Order #: [id number] GC/CHLAMYDIA DNA DET [SQGCCAMP] Order #: [id number] metroNIDAZOLE (FLAGYL) 500 mg tabletTake 1 tablet [...] 022 Mitch glabrata RNA Negative Normal Negative [facility] Comment on above: Performed By: #### G CCT #### [place] [address] [place] [phone] Mitch sp group RNA Negative Normal Negative [facility] Comment on above: Performed By: #### G CCT #### [place] [address] [place] [phone] Trichomonas RNA Negative Normal [facility] Comment on above: Performed By: #### G CCT #### [place] [address] [place] [phone] GC/Chlamydia Amplifon 2021 Chlamydia Amplif Negative Normal [facility] Comment on above: Performed By: #### G CCT #### [place] [phone] GC Amplification Negative Normal [facility] Comment on above: Performed By: #### G CCT #### [place] [phone] GC/Chlam Amp Source Cervix Normal [facility] Comment on above: Performed By: #### G CCT #### [place] [phone] Bact Vag Amplificationon Bact Vag Amplification Negative Normal Negat ko for bacterial vaginosis [facility] Comment on above: Performed By: #### C VTV, BVAMP #### [facility] CLIA [id number] [address] [place] [address] 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 LMP: 06/07/2021 (Exact Date), Having periods Age at Menarche: Age at First : Age at Menopause: Manager Golf History Comments: Sexual Activity: Yes; Male; same [...] external genitalia normal, normal Bartholin's glands, urethra, Herkimer's glands, no vulvar lesions, no cervical lesions, [...] type of detergents for washing undergarments, wiping wmxzc-zw-bmis, sleep in loose shorts without underwear, shower [...] 021 Mitch glabrata RNA Negative Normal Negative [facility] Comment on above: Performed By: #### C VTV, BVAMP #### [facility] CLIA [id number] [address] [place] [address] [place] Mitch sp group RNA Negative Normal Negative [facility] Comment on above: Performed By: #### C VTV, BVAMP #### [facility] CLIA [id number] [address] [place] [address] [place] Trichomonas RNA Negative Normal [facility] Comment on above: Performed By: #### C VTV, BVAMP #### [facility] CLIA [id number] [address] [place] [address] [place] GC/Chlamydia Amplifon 2020 Chlamydia Amplif Negative Normal [facility] Comment on above: Performed By: #### G CCT #### [place] [address] [place] [address] GC Amplification Negative Normal [facility] Comment on above: Performed By: #### G CCT #### [place] [address] GC/Chlam Amp Source Cervix Normal [facility] Comment on above: Performed By: #### G CCT #### [place] [id number] Tobacco Screening.on 021 Fall risk assessment a) [...] trachomatis and Neisseria gonorrhoeae testing on specific hpy-MHL-ixmgbscg sample types (female urine samples) have been validated by [facility]. This laboratory is certified by CLIA [...] trachomatis and Neisseria gonorrhoeae testing on specific zgj-CZE-exnqovme sample types (female urine samples) have been validated by [facility]. This laboratory is certified by CLIA to perform high complexity testing. Samples from all other sites are not validated for this method. TSHon 12-24-2020 TSH Qn 2.30 m[IU]/L Normal 0.44 - 3.98 [facility] Comment on above: Result Comment: TSH testing is performed using different testing methodology at [facility] than at other [facility]. Direct result comparisons should only be made within the same method. Performed By: #### T SH2 #### [facility] [id number] [place] [address] TSH - Thyroid Stimulating Ho ti, Serumon 12-24-2020 TSH Qn 2.30 m[IU]/L See Below [employer] Phone: Comment on above: Reference Range: 0.4 4 - 3.98 TSH testing is performed using different testing methodology at [facility] than at other [facility]. Direct result comparisons should only be made within the same method. Tobacco Screening.on 021 Fall risk assessment a) No falls within the last year [employer] Phone: Tobacco use status CPHS b) No M [employer] Phone: CBCon 08-14-2020 Erythrocyte distribution width (RBC) [Ratio] 13.2 % Normal 11.5 - 14.5 [facility] Comment on above: Performed By: #### C BC #### [address] [address] Hematocrit (Bld) [Volume fraction] 39.5 % Normal 36.0 - 46.0 [facility] Comment on above: Performed By: #### C BC #### [address] [address] Hemoglobin (Bld) [Mass/Vol] 13.0 g/dL Normal 12.0 - 16.0 [facility] Comment on above: Performed By: #### C BC #### [address] [address] MCHC (RBC) [Mass/Vol] 32.9 g/dL Normal 32.0 - 36.0 [facility] Comment on above: Performed By: #### C BC #### [address] [address] MCV (RBC) [Entitic vol] 91 fL Normal 80 - 100 [facility] Comment on above: Performed By: #### C BC #### [address] [address] NUCLEATED RBC 0.0 /100 WBC Normal 0.0 - 0.0 [facility] Comment on above: Performed By: #### C BC #### [address] [address] Platelets (Bld) [#/Vol] 235 10*3/uL Normal 150 - 450 [facility] Comment on above: Performed By: #### C BC #### [address] [address] RBC 4.33 x10E12/L Normal 4.00 - 5.20 [facility] Comment on above: Performed By: #### C BC #### [address] [address] WBC (Bld) [#/Vol] 5.8 10*3/uL Normal 4.4 - 11.3 [facility] Comment on above: Performed By: #### C BC #### [address] [address] COMPREHENSIVE PANELon 2020 Albumin [Mass/Vol] 4.7 g/dL Normal 3.4 - 5.0 [facility] Comment on above: Performed By: #### C MP #### [address] [address] ALP [Catalytic activity/Vol] 53 U/L Normal 33 - 110 [facility] Comment on above: Performed By: #### C MP #### [address] [address] ALT [Catalytic activity/Vol] 41 U/L Normal 7 - 45 [facility] Comment on above: Result Comment: Desiree ents treated with Sulfasalazine may generate falsely decreased results for ALT. Performed By: #### C MP #### [address] [address] Anion gap [Moles/Vol] 10 mmol/L Normal 10 - 20 [facility] Comment on above: Performed By: #### C MP #### [address] [address] AST [Catalytic activity/Vol] 27 U/L Normal 9 - 39 [facility] Comment on above: Performed By: #### C MP #### [address] [place] [address] Bilirubin [Mass/Vol] 0.6 mg/dL Normal 0.0 - 1.2 [facility] Comment on above: Performed By: #### C MP #### [address] [place] [address] Calcium [Mass/Vol] 9.5 mg/dL Normal 8.6 - 10.3 [facility] Comment on above: Performed By: #### C MP #### [address] [address] Chloride [Moles/Vol] 105 mmol/L Normal 98 - 107 [facility] Comment on above: Performed By: #### C MP #### [address] [address] Creatinine [Mass/Vol] 0.93 mg/dL Normal 0.50 - 1.05 [facility] Comment on above: Performed By: #### C MP #### [address] [address] GFR- AM. >60 Normal >60 [facility] Comment on above: Result Comment: CALC ULATIONS OF ESTIMATED GFR ARE PERFORMED USING THE MDRD STUDY EQUATION FOR THE IDMS-TRACEABLE CREATININE METHODS. CLIN CHEM 2007;53:766-72 Performed By: #### C MP #### [address] [address] GFR-NON AM. >60 Normal >60 [facility] Comment on above: Performed By: #### C MP #### [address] [address] Glucose [Mass/Vol] 94 mg/dL Normal 74 - 99 [facility] Comment on above: Performed By: #### C MP #### [address] [address] HCO3 (Bld) [Moles/Vol] 28 mmol/L Normal 21 - 32 [facility] Comment on above: Performed By: #### C MP #### [address] [place] [address] Potassium [Moles/Vol] 4.4 mmol/L Normal 3.5 - 5.3 [facility] Comment on above: Performed By: #### C MP #### [address] [place] [address] Protein [Mass/Vol] 7.3 g/dL Normal 6.4 - 8.2 [facility] Comment on above: Performed By: #### C MP #### [address] [place] [address] Sodium [Moles/Vol] 139 mmol/L Normal 136 - 145 [facility] Comment on above: Performed By: #### C MP #### [address] [place] [address] Urea nitrogen [Mass/Vol] 13 mg/dL Normal 6 - 23 [facility] Comment on above: Performed By: #### C MP #### [address] [place] [address] Hematologyon 08-14-2020 Hematocrit (Bld) [Volume fraction] 39.5 % See Below -Neurolog -[facility] DO Work Phone: Comment on above: Reference Range: 36. 0 - 46.0 Hemoglobin (Bld) [Mass/Vol] 13.0 g/dL See Below -Neurolog -Osyka SJW DO Work Phone: Comment on above: Reference Range: 12. 0 - 16.0 MCV (RBC) [Entitic vol] 91 fL 80 - 100 M P-Neurolog -Osyka SJW DO Work Phone: Platelets (Bld) [#/Vol] 235 {x10E9/L} 150 - 450 -Neurolog y-Osyka SJW DO Work Phone: RBC (Bld) [#/Vol] 4.33 {x10E12/L} See Below [facility] Work Phone: Comment on above: Reference Range: 4.0 0 - 5.20 WBC (Bld) [#/Vol] 5.8 {x10E9/L} 4.4 - 11.3 MP-N eurolog y-Eugene SJW DO Work Phone: WBC (Bld) [#/Vol] 0.0 {/100_WBC} 0.0 - 0.0 MP- Neurolog y-Eugene SJW DO Work Phone: LAMOTRIGINE- LAMICTALon 07-20 LAMOTRIGINE- LAMICTAL 6.4 ug/mL Normal 2.5 - 15.0 [facility] Comment on above: Performed By: #### L AMOT #### [facility] [address] [address] Lamotrigine Level, Serumon 0 08-14-2020 Lamotrigine [Mass/Vol] 6.4 ug/mL 2.5 - 15.0 MP -Neurolog y-Osyka SJW DO Work Phone: Metabolic Panelon 08-14-2020 ALP [Catalytic activity/Vol] 53 U/L 33 - 110 MP-Neurolog y-Osyka SJW DO Work Phone: Anion gap [Moles/Vol] 10 mmol/L 10 - 20 MP- Neurolog y-Osyka SJW DO Work Phone: Bilirubin [Mass/Vol] 0.6 mg/dL 0.0 - 1.2 MP-N eurolog y-Eugene SJW DO Work Phone: Calcium [Mass/Vol] 9.5 mg/dL 8.6 - 10.3 MP-Jozef rolog y-Eugene SJW DO Work Phone: Chloride [Moles/Vol] 105 mmol/L 98 - 107 MP-N eurolog y-Osyka SJW DO Work Phone: CO2 [Moles/Vol] 28 mmol/L 21 - 32 MP-Neurol og y-Eugnee SJW DO Work Phone: Creatinine [Mass/Vol] 0.93 mg/dL See Below - [facility] DO Work Phone: Comment on above: Reference Range: 0.5 0 - 1.05 Glucose [Mass/Vol] 94 mg/dL 74 - 99 -[facility] DO Work Phone: Potassium [Moles/Vol] 4.4 mmol/L 3.5 - 5.3 - [facility] DO Work Phone: Protein [Mass/Vol] 7.3 g/dL 6.4 - 8.2 -[facility] DO Work Phone: Sodium [Moles/Vol] 139 mmol/L 136 - 145 -[facility] DO Work Phone: Urea nitrogen [Mass/Vol] 13 mg/dL 6 - 23 -[facility] DO Work Phone: Otheron 08-14-2020 Albumin BCP dye [Mass/Vol] 4.7 g/dL 3.4 - 5.0 -[facility] DO Work Phone: ALT With P-5'-P [Catalytic activity/Vol] 41 U/L 7 - 45 [facility] DO Work Phone: Comment on above: Patients treated wit h Sulfasalazine may generate falsely decreased results for ALT. AST With P-5'-P [Catalytic activity/Vol] 27 U/L 9 - 39 -[facility] DO Work Phone: Erythrocyte distribution width (RBC) [Ratio] 13.2 % See Below [facility] DO Work Phone: Comment on above: Reference Range: 11. 5 - 14.5 MCHC (RBC) [Mass/Vol] 32.9 g/dL See Below [facility] SJW DO Work Phone: Comment [...] areas of abnormal enhancement after contrast administration. [facility] [place] EXAMINATION: MRI BRA IN W WO CONTRAST [...] The calvarium and soft tissues are unremarkable. [facility] MS Judah, Chpo Incoming Radiant Results From [facility] - 05/09/2020 3:02 PM EDT EXAMINATION: MRI [...] areas of abnormal enhancement after contrast administration. [place], [place] MRI BRAIN W WO CONTRAST EXAMINATION: [...] David Winter MD 05/09/20 Final result Normal [facility] CBC With Platelet and Differ entialon 04-19-2020 Basophils (Bld) [#/Vol] 0.1 10*3/uL Normal 0.0-0.2 [facility] Comment on above: Performed By: #### C BCWD #### [facility] [address] [place] [address] Basophils/100 WBC (Bld) 0.4 % Normal [facility] Comment on above: Performed By: #### C BCWD #### [facility] [address] [place] [address] Eosinophils (Bld) [#/Vol] 0.5 10*3/uL Normal 0.0-0.7 [facility] Comment on above: Performed By: #### C BCWD #### [facility] [address] [place] [address] Eosinophils/100 WBC (Bld) 4.2 % Normal [facility] Comment on above: Performed By: #### C BCWD #### [facility] [address] [place] [address] Erythrocyte distribution width (RBC) [Ratio] 12.5 % Normal 11.5-14.5 [facility] Comment on above: Performed By: #### C BCWD #### [facility] [address] [place] [address] Hematocrit (Bld) [Volume fraction] 39.4 % Normal 37.0-47.0 [facility] Comment on above: Performed By: #### C BCWD #### [facility] [address] [place] [address] Hemoglobin (Bld) [Mass/Vol] 13.3 g/dL Normal 12.0-16.0 [facility] Comment on above: Performed By: #### C BCWD #### [facility] [address] [place] [address] Lymphocytes (Bld) [#/Vol] 3.2 10*3/uL Normal 1.0-4.8 [facility] Comment on above: Performed By: #### C BCWD #### [facility] [address] [place] [address] Lymphocytes/100 WBC (Bld) 26.9 % Normal [facility] Comment on above: Performed By: #### C BCWD #### [facility] [address] [place] [address] MCH (RBC) [Entitic mass] 29.8 pg Normal 27.0-31.3 [facility] Comment on above: Performed By: #### C BCWD #### [facility] [address] [place] [address] MCHC (RBC) [Mass/Vol] 33.8 % Normal 33.0-37.0 [facility] Comment on above: Performed By: #### C BCWD #### [facility] [address] [place] [address] MCV (RBC) [Entitic vol] 88.4 fL Normal 82.0-100.0 M [facility] Comment on above: Performed By: #### C BCWD #### [facility] [address] [place] [address] Monocytes (Bld) [#/Vol] 0.8 10*3/uL Normal 0.2-0.8 [facility] Comment on above: Performed By: #### C BCWD #### [facility] [address] [place] [address] Monocytes/100 WBC (Bld) 6.8 % Normal M [facility] Comment on above: Performed By: #### C BCWD #### [facility] [address] [place] [address] Neutrophils (Bld) [#/Vol] 7.3 10*3/uL Critically high 1.4-6.5 [facility] Comment on above: Performed By: #### C BCWD #### [facility] [address] [place] [address] Neutrophils/100 WBC (Bld) 61.7 % Normal [facility] Comment on above: Performed By: #### C BCWD #### [facility] [address] [place] [address] Platelets (Bld) [#/Vol] 314 10*3/uL Normal 130-400 [facility] Comment on above: Performed By: #### C BCWD #### [facility] [address] [place] [address] RBC (Bld) [#/Vol] 4.45 10*6/uL Normal 4.20-5.40 [facility] Comment on above: Performed By: #### C BCWD #### [facility] [address] [place] [address] WBC (Bld) [#/Vol] 11.9 10*3/uL Critically high 4.8-10.8 [facility] Comment on above: Performed By: #### C BCWD #### [facility] [address] [place] [address] CT HEAD WO CONTRASTon 2019 CT HEAD [...] De Jesus DO 04/19/20 Final result Normal [facility] Comprehensive Metabolic Pane crescencio 04-19-2020 Albumin [Mass/Vol] 4.9 g/dL Critically high 3.5-4.6 M [facility] Comment on above: Performed By: #### C MP #### [facility] [address] [place] [address] ALP [Catalytic activity/Vol] 40 U/L Normal 40-130 [facility] Comment on above: Performed By: #### C MP #### [facility] [address] [place] [address] ALT [Catalytic activity/Vol] 17 U/L Normal 0-33 [facility] Comment on above: Performed By: #### C MP #### [facility] [address] [place] [address] Anion gap [Moles/Vol] 14 mmol/L Normal 9-15 [facility] Comment on above: Performed By: #### C MP #### [facility] [address] [place] [address] AST [Catalytic activity/Vol] 17 U/L Normal 0-35 [facility] Comment on above: Performed By: #### C MP #### [facility] [address] [place] [address] Bilirubin [Mass/Vol] mg/dL Normal 0.2-0.7 [facility] Comment on above: Performed By: #### C MP #### [facility] [address] [place] [address] Calcium [Mass/Vol] 10.0 mg/dL Critically high 8.5-9.9 [facility] Comment on above: Performed By: #### C MP #### [facility] [address] [place] [address] Chloride [Moles/Vol] 101 mmol/L Normal 95-107 [facility] Comment on above: Performed By: #### C MP #### [facility] [address] [place] [address] CO2 [Moles/Vol] 24 mmol/L Normal 20-31 [facility] Comment on above: Performed By: #### C MP #### [facility] [address] [place] [address] Creatinine [Mass/Vol] 0.87 mg/dL Normal 0.50-0.90 [facility] Comment on above: Performed By: #### C MP #### [facility] [address] [place] [address] GFR/1.73 sq M predicted among blacks MDRD (S/P/Bld) [Vol rate/Area] mL/min/{1.73_m2} Normal >60 [facility] Comment on above: Result Comment: >60 mL/min/1.73m2 EGFR, calc. for ages 18 and older using the MDRD formula (not corrected for weight), is valid for stable renal function. Performed By: #### C MP #### [facility] [address] [place] [address] GFR/1.73 sq M.predicted MDRD (S/P/Bld) [Vol rate/Area] mL/min/{1.73_m2} Normal >60 [facility] Comment on above: Result Comment: >60 mL/min/1.73m2 EGFR, calc. for ages 18 and older using the MDRD formula (not corrected for weight), is valid for stable renal function. Performed By: #### C MP #### [facility] [address] [place] [address] Globulin (S) [Mass/Vol] 3.1 g/dL Normal 2.3-3.5 M [facility] Comment on above: Performed By: #### C MP #### [facility] [address] [place] [address] Glucose [Mass/Vol] 94 mg/dL Normal 70-99 [facility] Comment on above: Performed By: #### C MP #### [facility] [address] [place] [address] Potassium [Moles/Vol] 3.9 mmol/L Normal 3.4-4.9 [facility] Comment on above: Performed By: #### C MP #### [facility] [address] [place] [address] Protein [Mass/Vol] 8.0 g/dL Normal 6.3-8.0 [facility] Comment on above: Performed By: #### C MP #### [facility] [address] [place] [address] Sodium [Moles/Vol] 139 mmol/L Normal 135-144 [facility] Comment on above: Performed By: #### C MP #### [facility] [address] [place] [address] Urea nitrogen [Mass/Vol] 12 mg/dL Normal 6-20 [facility] Comment on above: Performed By: #### C MP #### [facility] [address] [place] [address] Lactic Acidon 04-19-2020 Lactate [Moles/Vol] 1.8 mmol/L Normal 0.5-2.2 [facility] Comment on above: Performed By: #### L ACID #### [facility] [address] [place] [address] Prolactinon 04-19-2020 Prolactin 160.8 ng/mL Normal [facility] Comment on above: Result Comment: Defa ult Normal Ranges Female Male Non: 4.8-23.3 4.0-15.2 Performed By: #### P JAISON #### [facility] [address] [place] [address] Serum HCG Qualitativeon HCG.beta subunit Qn Negative Normal [facility] Comment on above: Performed By: #### S HCG #### [facility] [address] [place] [address] Urinalysis, reflex to cultur emily 04-19-2020 Urine Reflexed to Culture Not Indicated Normal [facility] Comment on above: Performed By: #### U AR #### [facility] [address] [place] [address] Bilirubin Ql (U) Negative Normal Negative [facility] Comment on above: Performed By: #### U AR #### [facility] [address] [place] [address] Clarity (U) Clear Normal Clear [facility] Comment on above: Performed By: #### U AR #### [facility] [address] [place] [address] Color (U) Yellow Normal Straw/Chase [facility] Comment on above: Performed By: #### U AR #### [facility] [address] [place] [address] Glucose Ql (U) Negative Normal Negative [facility] Comment on above: Performed By: #### U AR #### [facility] [address] [place] [address] Hemoglobin Ql (U) Trace-intact Normal Negative [facility] Comment on above: Performed By: #### U AR #### [facility] [address] [place] [address] Ketones Ql (U) Negative Normal Negative [facility] Comment on above: Performed By: #### U AR #### [facility] [address] [place] [address] Leukocyte esterase Test strip Ql (U) Negative Normal Negative [facility] Comment on above: Performed By: #### U AR #### [facility] [address] [place] [address] Nitrite Ql (U) Negative Normal Negative [facility] Comment on above: Performed By: #### U AR #### [facility] [address] [place] [address] pH (U) 6.0 [pH] Normal 5.0-9.0 [facility] Comment on above: Performed By: #### U AR #### [facility] [address] [place] [address] Protein Ql (U) Negative Normal Negative [facility] Comment on above: Performed By: #### U AR #### [facility] [address] [place] [address] Specific gravity (U) [Rel density] 1.020 Normal 1.005-1.03 [facility] Comment on above: Performed By: #### U AR #### [facility] [address] [place] [address] Urobilinogen Qn (U) 0.2 {Alan'U}/dL Normal < 2.0 [facility] Comment on above: Performed By: #### U AR #### [facility] [address] [place] [address] Urine Microscopicon 04-19-20 20 Epithelial cells LM Ql (Urine sed) 0-2 Normal [facility] Comment on above: Performed By: #### U ARELY #### [facility] [address] [place] [address] RBC (U) [#/Vol] 0-2 Normal 0-2 [facility] Comment on above: Performed By: #### U ARELY #### [facility] [address] [place] [address] WBC (U) [#/Vol] 0-2 Normal 0-5 [facility] Comment on above: Performed By: #### U ARELY #### [facility] [address] [place] [address] CBC Auto Differentialon 10-0 -2020 Basophils (Bld) [#/Vol] 0.1 10*3/uL 0 - 0.2 K/u L [facility], [place] Basophils/100 WBC (Bld) 0.4 % [place] Eosinophils (Bld) [#/Vol] 0.5 10*3/uL 0 - 0.7 K/uL [place] Eosinophils/100 WBC (Bld) 4.2 % [place] Erythrocyte distribution width (RBC) [Ratio] 12.5 % 11.5 - 14.5 % [place] Hematocrit (Bld) [Volume fraction] 39.4 % 37 - 47 % [place] Hemoglobin (Bld) [Mass/Vol] 13.3 g/dL 12 - 16 g/dL [place] Interpretation and review of laboratory results Abnormal [place] Lymphocytes (Bld) [#/Vol] 3.2 10*3/uL 1 - 4.8 K/uL [place] Lymphocytes/100 WBC (Bld) 26.9 % [place] MCH (RBC) [Entitic mass] 29.8 pg 27 - 31.3 pg [place] MCHC (RBC) [Mass/Vol] 33.8 % 33 - 37 % [place] MCV (RBC) [Entitic vol] 88.4 fL 82 - 100 fL [place] Monocytes (Bld) [#/Vol] 0.8 10*3/uL 0.2 - 0.8 K /uL [place] Monocytes/100 WBC (Bld) 6.8 % [place] Neutrophils Absolute 7.3 K/uL High 1.4 - 6.5 K/uL [place] Neutrophils/100 WBC (Bld) 61.7 % [place] Platelets (Bld) [#/Vol] 314 10*3/uL 130 - 400 K /uL [place] RBC (Bld) [#/Vol] 4.45 10*6/uL [place] WBC (Bld) [#/Vol] 11.9 10*3/uL High 4.8 - 10.8 K/uL [place] Comprehensive Metabolic Pane crescencio 04-18-2020 Albumin [Mass/Vol] 4.9 g/dL High 3.5 - 4.6 g/dL [place] ALP [Catalytic activity/Vol] 40 U/L 40 - 130 U/L [place] ALT [Catalytic activity/Vol] 17 U/L 0 - 33 U/L [place] Anion gap [Moles/Vol] 14 mmol/L [place] AST [Catalytic activity/Vol] 17 U/L 0 - 35 U/L [place] Bilirubin Ql (U) <0.2 0.2 - 0.7 mg/dL [place] Calcium [Mass/Vol] 10.0 mg/dL High 8.5 - 9.9 mg/dL [place] Chloride [Moles/Vol] 101 mmol/L [place] CO2 [Moles/Vol] 24 mmol/L [place] Creatinine [Mass/Vol] 0.87 mg/dL 0.5 - 0.9 mg/dL [place] GFR >60.0 >60 [place] Comment on above: >60 mL/min/1.73m2 EG FR, calc. for ages 18 and older using the MDRD formula (not corrected for weight), is valid for stable renal function. GFR Non- >60.0 >60 [place] Comment on above: >60 mL/min/1.73m2 EG FR, calc. for ages 18 and older using the MDRD formula (not corrected for weight), is valid for stable renal function. Globulin (S) [Mass/Vol] 3.1 g/dL 2.3 - 3.5 g/ dL [place] Glucose [Mass/Vol] 94 mg/dL 70 - 99 mg/dL [place] Interpretation and review of laboratory results Abnormal [place] Potassium [Moles/Vol] 3.9 mmol/L [place] Protein [Mass/Vol] 8.0 g/dL 6.3 - 8 g/dL [place] Sodium [Moles/Vol] 139 mmol/L [place] Urea nitrogen [Mass/Vol] 12 mg/dL 6 - 20 mg/dL [place] HCG Qualitative, Serumon hCG Qual Negative [place] Lactic Acid, Plasmaon 2019 Lactate [Moles/Vol] 1.8 mmol/L 0.5 - 2. 2 mmol/L [place] Microscopic Urinalysison Epithelial Cells, UA 0-2 /HPF [place] RBC (U) [#/Vol] 0-2 [place] WBC, UA 0-2 [place] Urine Reflex to Cultureon Bilirubin Urine Negative Negative [place] Blood, Urine Trace-intact Negative [place] Clarity, UA Clear Clear [place] Color, UA Yellow Straw/Yellow [place] Glucose, Ur Negative Negative mg/dL [place] Ketones Ql (U) Negative Negative mg/dL [place] Leukocyte esterase Test strip Ql (U) Negative Negative [place] Nitrite, Urine Negative Negative [place] pH, UA 6.0 [place] Protein (U) [Mass/Vol] Negative Negative mg/d L [place] Specific [place], UA 1.020 [place] Urine Reflex to Culture Not Indicated [place] Urobilinogen, Urine 0.2 <2.0 E.U./dL [place] ECHOCARDIOGRAPHY REPORT (HL) on 05-10-2017 ECHOCARDIOGRAPHY REPORT (HL) PRINCESS CANTU [id number] 179.6F [id number] VASCULAR LABReferring: Koffi Uriarte A.Reading: CURTIS GARCIA [...] 4 CH 16.1 cm2LA Volume Indexed 21.05 ml/e3Dhgiqsdgx/Systoli c FunctionMV E-wave Vmax 0.884 m/secMV deceleration time 193 msecMV A-wave Vmax 0.494 m/secLV septal e' Vmax 0.115 m/secLV lateral e' Vmax 0.189 m/secLV E:e' septal ratio 7.7 ratio [facility] PRINCESS CANTU [id number] [place] [address] [id number] 93Jackie Uriarte MDECHOCARDIOGRAPHY REPORTLV E:e' lateral ratio [...] structure. There is no evidence ofpulmonic regurgitation. [facility] PRINCESS CANTU [id number] [place] [address] [id number] 93Jackie roper MDECHOCARDIOGRAPHY REPORTPericardium:Ther e is no [...] function.This is a normal echocardiogram.PARAS CHOW05/10/2017 10:26:53 [facility] PRINCESS CANTU [id number] [place] [address] [id number] 93Jackie roper MDECHOCARDIOGRAPHY REPORT Normal [facility] BASIC METABOLIC PANELon 10-1 Anion gap 10 mmol/L Normal 6-18 [facility] Comment on above: Order Comment: Is pa tient fasting? YES Performed By: #### L BMP, LGFRP ####[facility] [address] [place] [address] Calcium 9.6 mg/dL Normal 8.6-10.3 [facility] Comment on above: Order Comment: Is pa tient fasting? YES Performed By: #### L BMP, LGFRP ####[facility] S[address]wfqmo38744 [place] [address] Chloride 101 mmol/L Normal 98-107 [facility] Comment on above: Order Comment: Is pa tient fasting? YES Performed By: #### L BMP, LGFRP ####[facility] J[address]vtf[address]184 [place] [address] CO2 27 mmol/L Normal 21-32 [facility] Comment on above: Order Comment: Is pa tient fasting? YES Performed By: #### L BMP, LGFRP ####[facility] Vrbfnasigm34812 [place] [address] Creatinine 0.74 mg/dL Normal 0.5-1.05 [facility] Comment on above: Order Comment: Is pa tient fasting? YES Performed By: #### L BMP, LGFRP ####[facility] O[address]hyvyold[address]89 [place] [address] Glucose mass conc 82 mg/dL Normal 74-99 [facility] Comment on above: Order Comment: Is pa tient fasting? YES Performed By: #### L BMP, LGFRP ####[facility] U[address]ftoaihu77959 [place] [address] Potassium molar conc 4.1 mmol/L Normal 3.5-5.3 [facility] Comment on above: Order Comment: Is pa tient fasting? YES Performed By: #### L BMP, LGFRP ####[facility] X[address]alsdbyfl05440 [place] [address] Sodium 134 mmol/L Low 136-145 [facility] Comment on above: Order Comment: Is pa tient fasting? YES Performed By: #### L BMP, LGFRP ####[facility] Hqcwqpjdnq52389 [place] [address] Urea nitrogen 14 mg/dL Normal 6-23 [facility] Comment on above: Order Comment: Is pa tient fasting? YES Performed By: #### L BMP, LGFRP ####[facility] [address] [place], [place] [id number] CBC AUTOon 05-04-2017 Erythrocyte distribution width Auto Ratio (RBC) 12.8 % Normal 11.5-14.5 [facility] Comment on above: Performed By: #### L CBC ####[place] [id number] Erythrocytes (RBC) 4.65 10*6/uL Normal 3.5-5.5 [facility] Comment on above: Performed By: #### L CBC ####[place] [address] Hematocrit (HCT) 41.1 % Normal 36.0-48.0 [facility] Comment on above: Performed By: #### L CBC ####[place] [address] Hemoglobin mass conc (Bld) 13.8 g/dL Normal 12.0-15.0 [facility] Comment on above: Performed By: #### L CBC ####[place] [id number] MCH 29.7 pg Normal 25.4-34.6 [facility] Comment on above: Performed By: #### L CBC ####[place] [id number] MCHC mass conc (RBC) 33.6 g/dL Normal 30.0-36.0 [facility] Comment on above: Performed By: #### L CBC ####[facility] [address] [place], [place] [id number] MCV 88.4 fL Normal 79.0-98.0 [facility] Comment on above: Performed By: #### L CBC ####[place] [id number] Platelet mean volume (PMV) 9.3 fL Normal 8.4-11.9 [facility] Comment on above: Performed By: #### L CBC ####[place] [id number] Platelets 277 10*3/uL Normal 140-440 [facility] Comment on above: Performed By: #### L CBC ####[facility] Hebtpnetio94168 [place] [address] WBC (Leukocytes) 6.1 10*3/uL Normal 3.9-11.0 [facility] Comment on above: Performed By: #### L CBC ####[facility] Dtdfifnaci28554 [place] [address] GLOMERULAR FILTRATION RATE E STon 05-04-2017 eGFR (non-black) mL/min/{1.73_m2} Normal > 60 [facility] Comment on above: Order Comment: Is pa tient fasting? YES Performed By: #### L BMP, LGFRP ####[facility] Uzx[address]ltpvjf47216 [place] [address] IF AMER > 90 Normal > 60 [facility] Comment on above: Order Comment: Is pa tient fasting? YES Result Comment: Effe ctive 12/12/14:CKD-EPI equation / based on IDMS traceable creatinine.Continue to use the CREAT CLR-DOSE ([place]groft-Gault)value for determining medication dose. Performed By: #### L BMP, LGFRP ####[facility] [address]xeokk[address]89 [place] [address] Vital Signs Date Time Vital Sign Value Performing Clinician Yael murguia 07-31-2022 10:54-0500 Body height 175.26 cm Koffi Rosas [employer] Work Phone: [employer] Work Phone: 07-31-2022 10:54-0500 Body mass index (BMI) [Ratio] 31.01 kg/m2 Koffi Clementeson Work Phone: [employer] Work Phone: 07-31-2022 10:54-0500 Body surface area Derived from formula 2.11 m2 Koffi Clementeson Work Phone: [employer] Work Phone: 07-31-2022 10:54-0500 Body temperature 97.6 [degF] Koffi Uriarte Work Phone: HL-PRTQ-[place] Work Phone: 07-31-2022 10:54-0500 Body weight 95.26 kg Koffi Urirate Work Phone: CX-IRDR-Cvym [place] Work Phone: 07-31-2022 10:54-0500 Diastolic blood pressure 87 mm[Hg] Koffi Uriarte Work Phone: KI-RRBY-Uoit [place] Work Phone: 07-31-2022 10:54-0500 Heart rate 76 /min Koffi Uriarte Work Phone: YF-ORAE-[place] Work Phone: 07-31-2022 10:54-0500 Respiratory rate 18 /min Koffi Uriarte Work Phone: ZT-JHHI-Nzzb [place] Work Phone: 07-31-2022 10:54-0500 Systolic blood pressure 121 mm[Hg] Koffi Uriarte Work Phone: IS-MJTX-Rmps [place] Work Phone: 12-24-2021 11:32-0400 Body height 175.26 cm Koffi Uriarte Work Phone: XO-Acimkjmbv-Velv [place] SJW DO Work Phone: 12-24-2021 11:32-0400 Body mass index (BMI) [Ratio] 31.03 kg/m2 Koffi Uriarte Work Phone: QW-Jmtmxnciv-Lqmo [place] SJW DO Work Phone: 12-24-2021 11:32-0400 Body surface area Derived from formula 2.11 m2 Koffi Uriarte Work Phone: LC-Fgptzfszj-Fgrj [place] SJW DO Work Phone: 12-24-2021 11:32-0400 Body temperature 97.1 [degF] Koffi Uriarte Work Phone: [facility] DO Work Phone: 12-24-2021 11:32-0400 Body weight 95.3 kg Koffi Uriarte Work Phone: [facility] DO Work Phone: 12-24-2021 11:32-0400 Diastolic blood pressure 76 mm[Hg] Koffi Uriarte Work Phone: [facility] DO Work Phone: 12-24-2021 11:32-0400 Heart rate 54 /min Koffi Uriarte Work Phone: [facility] DO Work Phone: 12-24-2021 11:32-0400 SaO2% (BldA) [Mass fraction] 100 % Koffi Uriarte Work Phone: [facility] DO Work Phone: 12-24-2021 11:32-0400 Systolic blood pressure 114 mm[Hg] Koffi Uriarte Work Phone: [facility] DO Work Phone: 11-17-2021 13:08-0400 Body height 172.72 cm Koffi Uriarte Work Phone: [facility] Work Phone: 11-17-2021 13:08-0400 Body mass index (BMI) [Ratio] 32.39 kg/m2 Koffi Uriarte Work Phone: ZX-RFFV-Zrmd [place] Work Phone: 11-17-2021 13:08-0400 Body surface area Derived from formula 2.1 m2 Koffi Uriarte Work Phone: SL-JNXO-Bgck [place] Work Phone: 11-17-2021 13:08-0400 Body temperature 97 [degF] Koffi Uriarte Work Phone: TD-HONN-Qkef [place] Work Phone: 11-17-2021 13:08-0400 Body weight 96.62 kg Koffi Uriarte Work Phone: NO-WUBH-Hskd [place] Work Phone: 11-17-2021 13:08-0400 Diastolic blood pressure 84 mm[Hg] Koffi Uriarte Work Phone: US-UOUK-Lxtj [place] Work Phone: 11-17-2021 13:08-0400 Heart rate 70 /min Koffi Uriarte Work Phone: YP-VBLX-Yreb [place] Work Phone: 11-17-2021 13:08-0400 Respiratory rate 18 /min Koffi Uriarte Work Phone: EC-BBYN-Zoyi [place] Work Phone: 11-17-2021 13:08-0400 SaO2% (BldA) [Mass fraction] 96 % Koffi Uriarte Work Phone: EP-MAJB-Magw [place] Work Phone: 11-17-2021 13:08-0400 Systolic blood pressure 126 mm[Hg] Koffi Uriarte Work Phone: TT-ANHG-Zapy [place] Work Phone: 06-25-2021 10:54-0500 Body height 172.72 cm Koffi Uriarte Work Phone: MI-Efbzhgrmx-Ljcr [place] SJ DO Work Phone: 06-25-2021 10:54-0500 Body mass index (BMI) [Ratio] 32.08 kg/m2 Koffi Uriarte Work Phone: [facility] DO Work Phone: 06-25-2021 10:54-0500 Body surface area Derived from formula 2.09 m2 Koffi Uriarte Work Phone: [facility] DO Work Phone: 06-25-2021 10:54-0500 Body temperature 97.1 [degF] Koffi Uriarte Work Phone: [facility] DO Work Phone: 06-25-2021 10:54-0500 Body weight 95.71 kg Koffi Uriarte Work Phone: [facility] DO Work Phone: 06-25-2021 10:54-0500 Diastolic blood pressure 62 mm[Hg] Koffi Uriarte Work Phone: [facility] DO Work Phone: 06-25-2021 10:54-0500 Heart rate 67 /min Koffi Uriarte Work Phone: [facility] DO Work Phone: 06-25-2021 10:54-0500 Respiratory rate 18 /min Koffi Uriarte Work Phone: [facility] DO Work Phone: 06-25-2021 10:54-0500 SaO2% (BldA) [Mass fraction] 99 % Koffi Uriarte Work Phone: [facility] DO Work Phone: 06-25-2021 10:54-0500 Systolic blood pressure 131 mm[Hg] Koffi Uriarte Work Phone: [facility] DO Work Phone: 05-20-2021 15:59-0400 Body height 172.72 cm Koffi Uriarte Work Phone: EM-CCCH-Uagf [place] Work Phone: 05-20-2021 15:59-0400 Body mass index (BMI) [Ratio] 31.93 kg/m2 Koffi Uriarte Work Phone: YT-TOHC-Fgpr [place] Work Phone: 05-20-2021 15:59-0400 Body surface area Derived from formula 2.09 m2 Koffi Uriarte Work Phone: AU-VLXF-Ftvn [place] Work Phone: 05-20-2021 15:59-0400 Body temperature 98.1 [degF] Koffi Uriarte Work Phone: NM-CDVB-Xwfl [place] Work Phone: 05-20-2021 15:59-0400 Body weight 95.26 kg Koffi Uriarte Work Phone: AT-ORQT-Ldwz [place] Work Phone: 05-20-2021 15:59-0400 Diastolic blood pressure 82 mm[Hg] Koffi Uriarte Work Phone: CL-ZPXX-Bmun [place] Work Phone: 05-20-2021 15:59-0400 Heart rate 72 /min Koffi Uriarte Work Phone: CK-PQQL-Lwit [place] Work Phone: 05-20-2021 15:59-0400 Respiratory rate 16 /min Koffi Uriarte Work Phone: TY-LYIP-Cuug [place] Work Phone: 05-20-2021 15:59-0400 Systolic blood pressure 122 mm[Hg] Koffi Uriarte Work Phone: UP-NCLZ-Ztih [place] Work Phone: 12-24-2020 14:45-0400 Body height 172.72 cm Koffi Uriarte Work Phone: FW-HORC-Ulwb [place] Work Phone: 12-24-2020 14:45-0400 Body mass index (BMI) [Ratio] 30.71 kg/m2 Koffi Uriarte Work Phone: VK-ECFB-Adnh [place] Work Phone: 12-24-2020 14:45-0400 Body surface area Derived from formula 2.05 m2 Koffi Uriarte Work Phone: EI-NHPN-Htyn [place] Work Phone: 12-24-2020 14:45-0400 Body temperature 97.8 [degF] Koffi Uriarte Work Phone: PA-NELI-Sgzh [place] Work Phone: 12-24-2020 14:45-0400 Body weight 91.63 kg Koffi Uriarte Work Phone: DD-GCDM-Hfci [place] Work Phone: 12-24-2020 12:59-0400 Body height 172.72 cm Koffi Uriarte Work Phone: UD-XTKO-Scgc [place] Work Phone: 12-24-2020 12:59-0400 Body mass index (BMI) [Ratio] 30.71 kg/m2 Koffi Clementeson Work Phone: VE-RAZY-Ichn [place] Work Phone: 12-24-2020 12:59-0400 Body surface area Derived from formula 2.05 m2 Koffi Clementeson Work Phone: BW-QNSS-Rpov [place] Work Phone: 12-24-2020 12:59-0400 Body temperature 98.2 [degF] Koffi Uriarte Work Phone: XM-SDUZ-Blat [place] Work Phone: 12-24-2020 12:59-0400 Body weight 91.63 kg Koffi Uriarte Work Phone: EQ-PJGQ-Nnet [place] Work Phone: 12-24-2020 12:59-0400 Diastolic blood pressure 90 mm[Hg] Koffi Uriarte Work Phone: PO-LICL-Lbfq [place] Work Phone: 12-24-2020 12:59-0400 Heart rate 75 /min Koffi Uriarte Work Phone: LR-PEED-Cddq [place] Work Phone: 12-24-2020 12:59-0400 Respiratory rate 16 /min Koffi Uriarte Work Phone: OK-SKKM-Mfni [place] Work Phone: 12-24-2020 12:59-0400 Systolic blood pressure 147 mm[Hg] Koffi Uriarte Work Phone: EI-JZZE-Peft [place] Work Phone: 08-14-2020 13:26-0500 BMI (Body Mass Index) 29.04 kg/m2 Koffi Uriarte WX-Sbdwkuzqt-Agpd [place] SJ[facility] DO Work Phone: 08-14-2020 13:26-0500 Body Temperature 97.5 [degF] [facility]offi Uriarte [facility] DO Work Phone: 08-14-2020 13:26-0500 Body weight 86.64 kg Koffi Uriarte [facility] Work Phone: 08-14-2020 13:26-0500 BP Diastolic 100 mm[Hg] Koffi Uriarte [facility] Work Phone: 08-14-2020 13:26-0500 BP Systolic 150 mm[Hg] Koffi Uriarte [facility] DO Work Phone: 08-14-2020 13:26-0500 BSA (Body Surface Area) 2 m2 Koffi Uriarte TC-Bdjdrwtze-Iaer [place] [facility] DO Work Phone: 08-14-2020 13:26-0500 Height 172.72 cm Koffi Uriarte [facility] DO Work Phone: 05-28-2020 15:24-0500 BMI (Body Mass Index) 28.59 kg/m2 Koffi Uriarte MP-[facility]SP[facility] -[place] Work Phone: 05-28-2020 15:24-0500 Body Temperature 97.6 [degF] Koffi Uriarte TM-EUAW-Rsha [place] Work Phone: 05-28-2020 15:24-0500 Body weight 85.28 kg Koffi Uriarte IV-HLWM-Lgde [place] Work Phone: 05-28-2020 15:24-0500 BP Diastolic 82 mm[Hg] Koffi Uriarte MX-LSIR-Linx [place] Work Phone: 05-28-2020 15:24-0500 BP Systolic 122 mm[Hg] Koffi Uriarte RX-VRWG-Pxvo [place] Work Phone: 05-28-2020 15:24-0500 BSA (Body Surface Area) 1.99 m2 Koffi Uriarte KC-VXAI-Pdnu [place] Work Phone: 05-28-2020 15:24-0500 Height 172.72 cm Koffi Uriarte UY-FEBJ-Qeqa [place] Work Phone: 05-28-2020 15:24-0500 Pulse (Heart [...] Phone: 04-19-2020 00:00-0400 BP Diastolic 83 mm[Hg] [facility], [place] 04-19-2020 00:00-0400 BP Systolic 144 mm[Hg] [facility], [place] 04-18-2020 22:17-0400 BMI (Body Mass Index) 28.06 kg/m2 [facility], [place] 04-18-2020 22:17-0400 Body Temperature 98.91 [degF] Tu Wright [facility], [place] 04-18-2020 22:17-0400 Body weight 86.18 kg Tu Wright [facility], [place] 04-18-2020 22:17-0400 Height 175.3 cm Tu Wright [facility], [place] 04-18-2020 22:17-0400 Pulse (Heart Rate) 105 /min Tu Barker [facility], [place] 04-18-2020 22:17-0400 Pulse Oximetry 97 % Tu Wright [facility], [place] 04-18-2020 22:17-0400 Respiratory Rate 16 /min Tu [place] Adriana [facility], [place] Encounters Encounter Date Encounter Type Care Provider Facility Start: 07-14-2023 End: 07-14-2023 ambulatory SHIMA RODAS Not Available Start: 06-30-2023 End: 07-01-2023 ambulatory SHIMA RODAS Not Available Start: 06-16-2023 End: 06-16-2023 ambulatory SHIMA CLARK Not Available Start: 06-01-2023 End: 06-01-2023 ambulatory SHIMA CLARK Not Available Start: 04-30-2023 End: 04-30-2023 [facility] Start: 04-30-2023 End: 04-30-2023 Office outpatient visit 15 minutes Nedra Calderon MD Work Phone: [facility] Comment on above: Seizure (CMS/HCC) (P rimary Dx) Start: 11-25-2022 End: 11-26-[address] LISA ZIMMERMAN . Facility:[facility]1 Start: 11-16-2022 End: 11-17-[address] LISA ZIMMERMAN . Facility:[facility] Start: 07-31-2022 Current tobacco non- user cad cap copd pv dm Koffi Uriarte Work Phone: [employer] Work Phone: Start: 07-31-2022 Periodic preventive med est patient 18-39 yrs Koffi Uriarte Work Phone: [employer] Work Phone: Start: 07-31-[address] Koffi Uriarte Facility:[id number] Start: 04-16-2022 End: 04-17-2022 ambulatory KAVITA SWEET Facility:[facility] Start: 03-24-2022 End: 03-25-2022 ambulatory Dane Hassan Facility:[facility] Start: 03-24-2022 Telephone encounter Kavita lyons DO Work Phone: OB/Gynecology Comment on above: Bleeding With Pregna ncy Start: 03-24-2022 End: 03-24-2022 Patient encounter procedure Dane Hassan [facility] Start: 03-19-2022 Telephone encounter Georgia Nathan th GYMNASTICS COACH OR INSTRUCTOR.IN HOME CAREGIVER Work Phone: CB/Gynecology Comment on above: Appointment Start: 03-18-2022 AUDIT Koffi Carlson [employer] Work Phone: UF-Eagfbulxu-Lyozaza e SJW DO Work Phone: Start: 02-03-2022 ambulatory Brendan Blankenship PA-C Work Phone: OB/Gynecology Comment on above: Bacteria Vaginosis Start: 01-02-2022 AUDIT Koffi Rosas Aldo Whale [employer] Work Phone: UJ-WSDP-[place] Work Phone: Start: 12-24-2021 Office outpatient vi sit 15 minutes Koffi Clementeson Work Phone: XB-Cdsauyiih-Ntpyxzd e SJW DO Work Phone: Start: 11-17-2021 Office outpatient vi sit 15 minutes Koffi Clementeson Work Phone: PM-UNVU-Ectx [place] Work Phone: Start: 09-29-2021 AUDIT Koffi Carlson ardson Work Phone: RC-NPRQ-Honx [place] Work Phone: Start: 09-09-2021 End: 09-09-2021 ambulatory BRENDAN BLANKENSHIP Facility:[facility] Start: 07-04-2021 End: 07-05-2021 ambulatory GEORGIA DWYER Facility:[facility] Start: 07-04-2021 Encounter for gynecological examination (general) (routine) without abnormal findings GEORGIA DWYER [facility] Start: 06-25-2021 Office outpatient vi sit 25 minutes Koffi Alison Uriarte Work Phone: PH-Pxgydccny-Tosfpfw e SJW DO Work Phone: Start: 05-22-2021 Chart Update Koffi Carlson ardson Work Phone: PG-JZPR-Tjwb [place] Work Phone: Start: 05-20-2021 Office outpatient vi sit 25 minutes Koffi Alison Uriarte Work Phone: PN-IPBB-Nwhi [place] Work Phone: Start: 05-20-2021 Patient encounter procedure Koffi Alison ClementeUriarte Work Phone: WU-CTOA-Zfiu [place] Work Phone: Start: 03-28-2021 AUDIT Koffi Carlson ardson Work Phone: HQ-PHQZ-Ccer [place] Work Phone: Start: 12-24-2020 Chart Update Koffi Alison Carlson ardson Work Phone: ON-WGTB-Xabi [place] Work Phone: Start: 12-24-2020 Office outpatient vi sit 25 minutes Koffi A Uriarte Work Phone: RQ-EPCQ-Nssf [place] Work Phone: Start: 08-14-2020 Patient encounter procedure Koffi Clementeson WZ-Jedkgyhcb-Tmuxexu e SJW DO Work Phone: Start: 06-11-2020 Patient encounter procedure Koffi Uriarte SF-Eanpqhbwu-Uvytpaa e SJW DO Work Phone: Start: 05-28-2020 Patient encounter procedure Koffi Uriarte JX-TJDK-Hdym [place] Work Phone: Start: 05-09-2020 End: 05-12-2020 Patient encounter procedure SPIKE GARCIA [facility] Start: 05-09-2020 End: 05-11-2020 Subsequent hospital visit by physician Madeline Frey 1 EEG Comment on above: 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) Start: 04-25-2020 Patient encounter procedure Koffi Uriarte UD-UNUL-[place]goo [place] Work Phone: Start: 04-19-2020 End: 04-19-2020 Emergency department patient visit ZAC [facility] Start: 04-18-2020 End: 04-19-2020 Emergency department patient visit Tu Curran Work Phone: [facility] Comment on above: Seizure (HCC) (Prima ry Dx) Start: 03-02-2019 Patient encounter procedure Koffi Uriarte OB-JVFQ-Prfd [place] Work Phone: Start: 05-04-2017 Ambulatory [facility] Patient encounter status Koffi Uriarte Work Phone: RB-UNEP-Getk [place] Work Phone: Procedures Date Procedure Procedure [...] ANDERSON Start: 04-19-2020 Assay of prolactin ZAC NADERSON Start: 04-19-2020 Ct head/brain w/o contrast material [...] Start: 04-18-2020 Urinalysis microscopic only Tu Reece [facility] Work Phone: Start: 04-18-2020 Urnls dip stick/tablet [...] f 2) Zoster Vaccines (1 of 2) [facility] Start: 02-17-2028 DTaP/Tdap/Td Vaccine s (8 - Td or Tdap) DTaP/Tdap/Td Vaccines (8 - Td or Tdap) [facility] Start: 08-02-2023 PHYSICAL, Provider: Koffi Uriarte, Status: Pen, Time: 9:00 AM PHYSICAL, Provider: Koffi Uriarte, Status: Pen, Time: 9:00 AM HH-LXIS-Ppwf [place] Work Phone: Start: 08-02-2023 End: 08-02-2023 Patient encounter procedure 08/02/2023 9:00 AM EST Office Visit [facility] [address] [place] [id number] [place] [address] [place], [place] [id number] [facility] Start: 07-02-2023 PAP TESTING PAP TESTING [facility] Start: 07-02-2023 Screening for malignant neoplasm of cervix [facility] Start: 12-24-2022 ERIKA, Provider : Nedra Calderon, Status: Pen, Time: 10:00 AM ERIKA, Provider: Nedra Calderon, Status: Pen, Time: 10:00 AM MB-Obbmuvtzc-Hkgqumv e AMANDAW DO Work Phone: Start: 05-22-2022 PHYSICAL, Provider: Koffi Uriarte, Status: Pen, Time: 9:50 AM PHYSICAL, Provider: Koffi Uriarte, Status: Pen, Time: 9:50 AM WF-IZLE-Szeo [place] Work Phone: Start: 03-24-2022 End: 05-24-2022 Choriogonadotropin.bet a subunit [Units/volume] in Serum or Plasma HCG QUANTITATIVE Lab Routine Bleeding in early Expected: 03/24/2022, Expires: 05/24/2022 [facility] Work Phone: Comment on above: Expected: 03/24/2022 , Expires: 05/24/2022 Start: 03-19-2022 Influenza vaccination INFLUENZA (#1) [facility] Start: 12-24-2021 Thyroid stimulating hormone measurement TSH Level [facility] Start: 12-24-2021 FUVGENERAL, Provider : Nedra Calderon, Status: Pen, Time: 11:30 AM FUVGENERAL, Provider: Nedra Calderon, Status: Pen, Time: 11:30 AM AA-Ictspzmlx-Yrdvuhu e SJW DO Work Phone: Start: 11-17-2021 FUV, Provider: Koffi Uriarte, Status: Pen, Time: 1:00 PM FUV, Provider: Koffi Uriarte, Status: Pen, Time: 1:00 PM GH-TSGZ-Svte [place] Work Phone: Start: 07-01-2021 COVID-19 VACCINE (3 - Booster for Pfizer series) COVID-19 VACCINE (3 - Booster for Pfizer series) [facility] Start: 06-25-2021 FUVGENERAL, Provider : Nedra Calderon, Status: Pen, Time: 2:00 PM FUVGENERAL, Provider: Nedra Calderon, Status: Pen, Time: 2:00 PM MA-RQSP-Yfeo [place] Work Phone: Start: 06-25-2021 FUVGENERAL, Provider : Nedra Calderon, Status: Pen, Time: 11:00 AM FUVGENERAL, Provider: Nedra Calderon, Status: Pen, Time: 11:00 AM PA-TOZB-Ekvp [place] Work Phone: Start: 05-20-2021 FUV, Provider: Koffi Uriarte, Status: Pen, Time: 3:40 PM FUV, Provider: Koffi Uriarte, Status: Pen, Time: 3:40 PM LE-PNKV-Xqek [place] Work Phone: Start: 03-31-2021 FUV, Provider: Koffi Uriarte, Status: Pen, Time: 2:00 PM FUV, Provider: Koffi Uriarte, Status: Pen, Time: 2:00 PM KG-FMTZ-Bhdv [place] Work Phone: Start: 03-26-2021 COVID-19 Vaccine (3 - Pfizer series) COVID-19 Vaccine (3 - Pfizer series) [facility] Start: 03-19-2020 Influenza vaccination Flu vaccine (# 1) [place], [place] Start: 03-02-2018 DTaP/Tdap/Td vaccine (7 - Td) DTaP/Tdap/Td vaccine (7 - Td) [place] Start: 03-02-2018 Urine microalbumin profile DTAP,TDAP,TD (7 - Td or Tdap) [facility] Start: 2014 Screening for malignant neoplasm of cervix [facility] Start: 10-02-2011 HEPATITIS C SCREENING HEPATITIS C [facility] Start: 10-02-2011 Hepatitis C screening Hepatitis C [facility] Start: 10-02-2011 HIV SCREENING HIV SCREENING [facility] Start: 2008 HIV screening HIV screen [place], [place] Start: 2005 Adult depression screening assessment DEPRESSION SCREENING [facility] Start: 2004 HPV vaccine (1 - 2-dose series) HPV vaccine (1 - 2-dose series) [place], [place] Start: 04-09-1999 Varicella vaccination Varicell a Vaccines (1 of 2 - 2-dose childhood series) [facility] Start: 1994 Varicella vaccine (1 of 2 - 2-dose childhood series) Varicella vaccine (1 of 2 - 2-dose childhood series) [place] Start: 1993 HIV screening HIV Screening [facility] Start: 1993 Lipid panel Lipid Panel [facility] Start: 1993 Yearly Adult Physical Yearly Adult P hysical [facility] End: 04-18-2020 CT Head WO Contrast CT Head WO Contrast Imaging STAT Once for 1 Occurrences starting 04/18/2020 until 04/18/2020 [place] Comment on above: Once for 1 Occurrenc es starting 04/18/2020 until 04/18/2020 CT Head WO Contrast CT Head WO C ontrast Imaging STAT 04/18/2020 11:15 PM EDT [place] End: 04-18-2020 Prolactin Prolactin Lab STAT One Time for 1 Occurrences starting 04/18/2020 until 04/18/2020 [place] Comment on above: One Time for 1 Occur rences starting 04/18/2020 until 04/18/[address] AT 04/18/2020 11:17 PM EDT [place] AA-ABRE-Usdd [employer] Work Phone: [facility] NEGATED: Highlighted row has been ruled out! Planned Goals not documented TU-WPVR-[place] Work Phone: Immunizations Immunization Date Immunization Notes Care Provider Radha laura 04-21-2022 influenza, injectabl e, quadrivalent, preservative free Koffi A Uriarte Work Phone: VC-IPSJ-Vltg [place] Work Phone: 04-18-2021 influenza, injectabl e, quadrivalent, preservative free Koffi A Uriarte Work Phone: VV-MXWQ-Xyoa [place] Work Phone: 01-29-2021 Pfizer-BioNTech COVID-19 Vacc 30 MCG/0.3ML Intramuscular Suspension Koffi A Uriarte Work Phone: QN-CHZN-Xoio [place] Work Phone: 01-08-2021 Pfizer-BioNTech COVID-19 Vacc 30 MCG/0.3ML Intramuscular Suspension Koffi A Uriarte Work Phone: OH-FQET-Xiig [place] Work Phone: 05-09-2019 Influenza, injectabl e, Madin Claudia Canine Kidney, preservative free, quadrivalent Koffi A Uriarte Work Phone: [employer] Work Phone: 04-28-2018 influenza, injectabl e, quadrivalent, contains preservative Koffi Uriarte Work Phone: [employer] Work Phone: 02-16-2018 tetanus toxoid, redu diego diphtheria toxoid, and acellular pertussis vaccine, adsorbed Koffi Rosas Uriarte Work Phone: [employer] Work Phone: 05-06-2017 influenza, injectabl e, quadrivalent, preservative free Koffi Rosas Uriarte Work Phone: [employer] Work Phone: 01-14-2016 pneumococcal polysaccharide vaccine, 23 valent Koffi Alison [employer] Work Phone: HP-QYXF-Dohf [place] Work Phone: 11-30-2014 tuberculin skin test ; purified protein derivative solution, intradermal [facility] 12-15-2013 tuberculin skin test ; purified protein derivative solution, intradermal [facility] 03-02-2008 tetanus toxoid, redu diego diphtheria toxoid, and acellular pertussis vaccine, adsorbed [facility] 02-25-2007 meningococcal polysaccharide (groups A, C, Y and W-135) diphtheria toxoid conjugate vaccine (MCV4P) [facility] 02-25-2007 Meningococcal, MCV4, unspecified conjugate formulation(groups A, C, Y and W-135) [facility] 03-12-1999 diphtheria, tetanus toxoids and acellular pertussis vaccine [facility] 03-12-1999 diphtheria, tetanus toxoids and acellular pertussis vaccine, unspecified formulation Koffi Uriarte Work Phone: [employer] Work Phone: 03-12-1999 haemophilus influenz ae type b vaccine, HbOC conjugate [facility] 03-12-1999 measles, mumps and rubella virus vaccine [facility] 03-12-1999 poliovirus vaccine, inactivated [facility] 03-12-1999 trivalent poliovirus vaccine, live, oral [place], [place] 01-07-1995 diphtheria, tetanus toxoids and acellular pertussis vaccine [facility] 01-07-1995 diphtheria, tetanus toxoids and acellular pertussis vaccine, unspecified formulation Koffi Uriarte Work Phone: [employer] Work Phone: 10-22-1994 haemophilus influenz ae type b vaccine, conjugate unspecified formulation [place] 10-22-1994 haemophilus influenz ae type b vaccine, PRP-OMP conjugate Koffi A [employer] Work Phone: [employer] Work Phone: 10-22-1994 Hib, unspecified [place] 10-22-1994 measles, mumps and rubella virus vaccine [facility] 10-22-1994 poliovirus vaccine, inactivated [facility] 06-18-1994 hepatitis B vaccine, pediatric or pediatric/adolescent dosage Koffi Uriarte Work Phone: [facility] 06-18-1994 hepatitis B vaccine, unspecified formulation [place] 04-16-1994 diphtheria, tetanus toxoids and acellular pertussis vaccine [facility] 04-16-1994 diphtheria, tetanus toxoids and pertussis vaccine [facility] 04-16-1994 haemophilus influenz ae type b vaccine, conjugate unspecified formulation [place] 04-16-1994 haemophilus influenz ae type b vaccine, HbOC conjugate Brendan Blankenship PA-C Work Phone: [facility] 04-16-1994 haemophilus influenz ae type b vaccine, PRP-OMP conjugate Koffi Alison Uriarte Work Phone: [employer] Work Phone: 04-16-1994 Hib, unspecified [place] 04-16-1994 poliovirus vaccine, inactivated [facility] 04-16-1994 trivalent poliovirus vaccine, live, oral [facility] 02-12-1994 diphtheria, tetanus toxoids and acellular pertussis vaccine [place] 02-12-1994 diphtheria, tetanus toxoids and pertussis vaccine [facility] 02-12-1994 haemophilus influenz ae type b vaccine, conjugate unspecified formulation [facility] 02-12-1994 haemophilus influenz ae type b vaccine, HbOC conjugate Brendan Pattie TYSONC Work Phone: [facility] 02-12-1994 haemophilus influenz ae type b vaccine, PRP-OMP conjugate Koffi Clementeson Work Phone: [employer] Work Phone: 02-12-1994 Hib, unspecified [facility] 02-12-1994 poliovirus vaccine, inactivated [facility] 02-12-1994 trivalent poliovirus vaccine, live, oral [facility] 01-08-1994 hepatitis B vaccine, pediatric or pediatric/adolescent dosage Koffi Uriarte Work Phone: [facility] 01-08-1994 hepatitis B vaccine, unspecified formulation [facility] [place] 1993 diphtheria, tetanus toxoids and acellular pertussis vaccine [facility] 1993 diphtheria, tetanus toxoids and pertussis vaccine [facility] 1993 haemophilus influenz ae type b vaccine, conjugate unspecified formulation [facility] 1993 haemophilus influenz ae type b vaccine, HbOC conjugate Brendan Lilibethpp PA-C Work Phone: [facility] 1993 haemophilus influenz ae type b vaccine, PRP-OMP conjugate Koffi Alison Uriarte Work Phone: [employer] Work Phone: 1993 hepatitis B vaccine, pediatric or pediatric/adolescent dosage Koffi Uriarte Work Phone: [facility] 1993 hepatitis B vaccine, unspecified formulation [facility] , [place] 1993 Hib, unspecified [place], [place] 1993 poliovirus vaccine, inactivated [facility] 1993 trivalent poliovirus vaccine, live, oral [facility] Payers Date Payer Category Payer Unknown 2020 Unknown MMO MMO [employer] [id number] 2020-Present [phone] [address] [place] [address] PPO [id number] 2019 Unknown [id number] 1993 Unknown [id number] 1993 Unknown [id number] 1993 Unknown [id number] 1993 Unknown [id number] 1993 Unknown [id number] 1993 Unknown [id number] 1993 Unknown [id number] 1993 Unknown [id number] 1993 Unknown [id number] 1993 Unknown [id number] 1993 Unknown [id number] 1993 Unknown [id number] 1959 Unknown [id number] Unknown [id number] Social History Date Type Detail Facility Start: 04-18-2020 End: 04-30-2023 Tobacco smoking status NHIS Never smoker [facility] Start: 04-18-2020 End: 04-30-2023 Tobacco use and exposure Never used [place] Start: 04-18-2020 End: 09-09-2021 Alcohol intake Current drinker of alcohol (finding) [place] Start: 09-19-2019 History SDOH Financial 5 [place] Start: 09-19-2019 History SDOH Food Worry 1 [place] Start: 09-19-2019 History SDOH Transport Med 2 [place] Start: 04-18-2020 Alcohol Comment occasionally [facility] [place], [place] Start: 1993 Sex Assigned At Not on file [place] Start: 04-20-2023 End: 04-30-2023 Exposure to SARS-CoV-2 (event) Not sure [place] Never smoker Never smoker XN-BGPV-Losb [place] Work Phone: Tobacco smoking status Never [facility] Sex Assigned At Female [facility] NEGATED: Highlighted row - - SP-HUOK-Eprf [place] Work Phone: NEGATED: Highlighted rowStart: NINF History of tobacco use Passive smoker [facility] Work Phone: Functional Status Date Assessment Result Facility NEGATED: Highlighted row Functional performance Functional status health issues are not documented Disease PK-SCKO-Jvzw [place] Work Phone: Mental Status Date Assessment Result Facility NEGATED: Highlighted row Cognitive function [Interpretation] Cognitive status health issues are not documented Disease YW-QDSS-YrgcJames Ruby Work Phone: Clinical Notes 08-09-2017 to [...] 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 Patient Active Problem List Diagnosis Abnormal weight [...] 5/5 throughout all four extremities. Coordination Right: Knorak-pk-mimc normal.Left: Fhiexh-mx-fwgf normal. Physical Exam Eyes: Extraocular Movements: Extraocular [...] in 1 year documented in this encounter [facility] Work Phone: 11-25-2022 Note EXAMINATION: US PELV [...] authenticated by: HAYLIE RIVER Date: 2022-11-25 17:20 [facility] 04-16-2022 Note HNO ID: [id number] Author: Brendan Blankenship PA-C Service: ? 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 I, Brendan Blankenship, have reviewed this information as documented for accuracy and performed all elements of history taking, and edited the record as necessary. 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 documented in this encounter [facility] 03-19-2022 Miscellaneous Notes LMP 02/11, +hpt. Assisted w initial OBV. Advised to take vitamin w folic acid. First trimester precautions provided. handbook sent in . documented in this encounter [facility] 02-03-2022 Miscellaneous Notes The following [...] medication MICHELLE: No documented in this encounter [facility] 09-09-2021 Note HNO ID: [id number] Author: Brendan Blankenship PA-C Service: ? 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 Portions of this record were documented by the Blue Prints Trimmer. I, Brendan Blankenship, have reviewed this information as documented for accuracy and performed all elements of history taking, and edited the record as necessary. 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 [...] [facility] 07-04-2021 Note HNO ID: [id number] Author: 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 APRN.IN HOME CAREGIVER Service: ? 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 [employer] History Comments: Sexual Activity: Yes; Male; same [...] external genitalia normal, normal Bartholin's glands, urethra, Herkimer's glands, no vulvar lesions, no cervical lesions, [...] type of detergents for washing undergarments, wiping jwnnn-bo-fihf, sleep in loose shorts without underwear, shower [...] of this encounter (statuses as of 02/03/2022) [facility] History of Past illness Narrative* Problem Noted Date Resolved Date NO SHOW 08/09/2017 08/09/2017 documented as of this encounter (statuses as of 03/19/2022) [facility] History of Past illness Narrative* Problem Noted Date Resolved Date NO SHOW 08/09/2017 08/09/2017 documented as of this encounter (statuses as of 03/24/2022) [facility] + Plan note No data available for this section [facility] Acute vaginitis- Primary Vaginitis and vulvovaginitis, unspecified documented in this encounter [facility]* Diagnosis Bleeding in early - Primary Unspecified hemorrhage in early , unspecified as to episode of care documented in this encounter [facility] note* Diagnosis Seizure (CMS/HCC)- Primary Other convulsions documented in this encounter [facility] Work Phone: History of Present illness Narrative* The patient states she has been doing well with her blood pressure control since the last visit. She has no comorbid illnesses. She has no significant interval events. * Symptoms: The patient is currently asymptomatic. * Less anxiety lately. Broke up with her boyfriend. 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 * BP is much improved on lisinopril. * Saw gyne for discharge. * was told she had BV and chlamydia. * took antibiotics, got better for a few weeks and now she is having discharge again and odor. no pelvic pain. [employer] Work Phone: History of Present illness Narrative* The patient states she has been doing well with her blood pressure control since the last visit. She has no comorbid illnesses. She has no significant interval events. * Symptoms: The patient is currently asymptomatic. * Less anxiety lately. Broke up with her boyfriend. * Working in [employer] at the [employer]. * BP is much improved on lisinopril. * Saw gyne for discharge. * was told she had BV and chlamydia. * took antibiotics, got better for a few weeks and now she is having discharge again and odor. no pelvic pain. [employer] Work Phone: Hospital Discharge instructions No data available for this section [facility] No data available for this section [facility] [facility] Summary Purpose Family History No Family [...] FoundDocuments on File Type Date Recorded Patient Mold Changer Expl anation ACP-Advance Directive ACP-Power of Clinical Director Documents on File Type Date Recorded Patient Mold Changer Expl anation ACP-Advance Directive ACP-Power of Clinical Director Documents on File Type Date Recorded Patient Mold Changer Expl anation Advance Directive(s) 11/30/2015 2:19 PM Reason for Referral Status Reason Specialty Diagnoses / Procedures Referre d By Contact Referred To Contact Open Radiology Diagnoses Nonintractable generalized idiopathic epilepsy without status epilepticus (HCC) Procedures MRI BRAIN W WO CONTRAST Spike Garcia MD [address] [id number] Assessments Diagnosis Nonintractable generalized idiopathic epilepsy without status epilepticus (HCC) Diagnosis Seizure (HCC) Other convulsions Discharge Instructions * Attachments The following attachments cannot be sent through Care Everywhere. * Seizure (Slovenian) documented in this encounter Additional Source Comments INFORMATION SOURCE (unrecogn ized section and content) DATE CREATED AUTHOR 01/11/2018 [facility] DATE CREATED AUTHOR AUTHOR'S ORGANIZ ATION 04/19/2020 [facility] DATE CREATED AUTHOR AUTHOR'S ORGANIZ ATION 05/11/2020 [facility] DATE CREATED AUTHOR AUTHOR'S ORGANIZ ATION 12/29/2020 [facility] DATE CREATED AUTHOR AUTHOR'S ORGANIZ ATION 04/14/2022 [facility] DATE CREATED AUTHOR AUTHOR'S ORGANIZ ATION 04/20/2022 [facility] DATE CREATED AUTHOR AUTHOR'S ORGANIZ ATION 08/11/2022 [facility] DATE CREATED AUTHOR AUTHOR'S ORGANIZ ATION 11/29/2022 [facility] DATE CREATED AUTHOR AUTHOR'S ORGANIZ ATION 12/27/2022 [facility] DATE CREATED AUTHOR AUTHOR'S ORGANIZ ATION 05/02/2023 [facility] DATE CREATED AUTHOR AUTHOR'S ORGANIZ ATION 07/16/2023 [facility] EPIC Reason for Visit (unrecogniz ed section and content) Status Reason Specialty Diagnoses / Procedures Referre d By Contact Referred To Contact Closed EEG Diagnoses Generalized idiopathic epilepsy and epileptic syndromes, not intractable, without status epilepticus Procedures EEG 16+ CHANNEL TELEMTERY 24HR Spike Garcia MD [address] [facility] [address] [place] [address] M[facility]z Eeg [address] [place] [address] Status Reason Specialty Diagnoses / Procedures Referre d By Contact Referred To Contact Closed Radiology Diagnoses Generalized idiopathic epilepsy and epileptic syndromes, not intractable, without status epilepticus Procedures MRI-BRAIN WO & W CONTRAST Spike Garcia MD [address] [facility] [address] [place] [address] [facility] Mri [address] [place] [address] Reason Comments Seizures Seizure like activit y [...] or prosecute any alcohol or drug abuse patient.[facility] Hospital[facility] the event this information is protected by the Federal Confidentiality of Alcohol and Drug Abuse Patient Records regulations: The Federal rules restrict any use of the information to criminally investigate or prosecute any alcohol or drug abuse patient.[facility] Hospital[facility] the event this information is protected by the Federal Confidentiality of Alcohol and Drug Abuse Patient Records regulations: The Federal rules restrict any use of the information to criminally investigate or prosecute any alcohol or drug abuse patient.[facility] Care Teams (unrecognized sec tion and content) Chemical Production Machine Operator Relationship Specialty Start Date End Date Koffi rUiarte MD PCP - General Family Practice 08/17/16 [employer] Production Machine Operator Relationship Specialty Start Date End Date Koffi Uriarte MD PCP - General Family Practice 08/17/16 [employer] Machine Operator Relationship Specialty Start [place] [address] [place] [address] PCP - General 08/14/20 [place] [address] [place] [address] PCP - MMO ACO PCP 02/16/23 FOR [...] BE BASED ON THE PRIMARY CLINICAL RECORDS. [facility] [employer] [facility]. provides no warranty or guarantee of the accuracy or completeness of information in this document.
[2023-07-21 19:03] VITALS: BP 122/70; PULSE 67
[2023-07-21] MEDS: BETAMETHASONE ACE/BETAMETHASONE SOD PHOS 30 MG/5 ML 12 MG IM (19:53)
== END 2023-07-21 20:04 | disposition home or self-care (01) ==
LOC: FBCO 07:08 → FBC 18:53
PROVIDERS: Visit Provider Orthopaedic Surgery
DX: O16.3 Unspecified maternal hypertension, third trimester (principal); Z3A.00 Weeks of gestation of pregnancy not specified
CPT/HCPCS: 59025; 96372; J0702

== ENCOUNTER 2023-07-22 07:31 | Outpatient (RCR) | payer OTHER, SELFPAY ==
[2023-07-22] MEDS: BETAMETHASONE ACE/BETAMETHASONE SOD PHOS 30 MG/5 ML 12 MG IM (19:04)
--- NOTE | 2023-07-22 19:17 | PC.NURSE ---
Pt arrives for second dose of Celestone 12mg IM. Injection administered in right gluteus radha. Pt monitored for s/s of reaction with none present before leaving.
== END 2023-07-22 19:15 | disposition home or self-care (01) ==
LOC: FBCO 07:31
PROVIDERS: Visit Provider Obstetrics & Gynecology
DX: O13.9 Gestational [pregnancy-induced] hypertension without significant proteinuria, unspecified trimester (principal)
CPT/HCPCS: 96372; J0702

== ENCOUNTER 2023-07-24 07:10 | Outpatient (OUT) | payer OTHER, SELFPAY ==
--- OUTSIDE RECORDS SUMMARY | 2023-07-24 07:14 | XMS_ITS | CCD ---
Author Name Unknown Address [address] [place] [address] Organization [facility] Care Team Providers Care Eradicator Name Role Phone Uriarte, Koffi A Unavailable [...] Unavailable Unavailable Zac Anderson Primary Care Provider Uriarte, Koffi A Unavailable Unavailable Unavailable Unavailable [...] Unavailable ELSIE ., DR GONZALEZ Attending Unavailable [place], DR HAYLIE Garcia Consulting Unavailable ELSIE ., DR GONZALEZ Consulting Talon Uriarte, Dr. Koffi Rossa Primary Care Dario Uriarte, Dr. Koffi Rosas Attending Dario Uriarte, Dr. Koffi Rosas Referring Koffi Oquendo MD Primary Care Provider Koffi Uriarte MD Unavailable [phone] NEDRA CALDERON Attending Unavailable KOFFI URIARTE Primary [facility]abl SHIMA Joyce Attending Unavailable SHIMA RODAS Attending Unavailable SHIMA RODAS Attending Unavailable SHIMA RODAS Attending Unavailable Allergies Allergy Classification Reported Allergen(s) Allergy Type Date of Onset Reaction(s) Facility (1 source) No Known Medication Allergies; Translations: [No Known Medication Allergies] Propensity to adverse reactions (disorder) [facility] Repository Medications Current Medications Medication Drug [...] # 120 tab(s), Refills(s) 0, Pharmacy: [id number] Start Date: 06/05/19 Status: Ordered ondansetron [...] 10-02-2022 10-02-2022 Episodic Unclassified (1 source) R07.9 60283/8 Onset: 05-04-2017 Unclassified (5 sources) Patient encounter status; Translations: [Encounter for audiology evaluation] NEGATED: Highlighted row has not occurred!Residual codes; unclassified (17 sources) Disease Episodic Results Test Name Value Interpretation Reference Range Facility DHEA SERUMon 11-20-2022 Dehydroepiandrosterone (DHEA) 656 ng/dL Normal 31-701 [facility] Comment on above: Performed By: #### D LAMAR. #### [facility] [address] [place] [address] Dr. Vish Brown ANTI-MULLERIAN HORMONEon Anti-Mullerian Hormone (AMH) 4.47 ng/mL Normal [facility] Comment on above: Result Comment: For assays employing antibodies, the possibility exists for interference by heterophile antibodies in the samples.1 1.Favio Campos Interferences in Immunoassays - still a threat. Clin. Chem. 2000; 46: 0514-9179. This test was developed and its performance characteristics determined by [facility]. It has not been cleared or approved by the Food and Drug Administration. Reference Range: Females 26 - 30y: 1.03 - 11.10 Median 4.20 AMH concentrations of >= 1.06 ng/mL is correlated with a better response to ovarian stimulation, produced more retrievable oocytes and higher odds of live according to Gabi et al. Fertility and Sterility. 2010: 94:0557-8994. The current AMH test method correlates with [...] AMH-secreting ovarian tumor. Performed By: #### L [facility] #### [facility] [address] [place] [address] Dr. Vish Brown DHEA-SULFATEon 11-17-2022 DHEA-Sulfate 449.0 ug/dL Critically high 84.8-378.0 [facility] Comment on above: Performed By: #### L [facility] #### [facility] [address] [place] [address] Dr. Vish Brown ESTRADIOLon 11-17-2022 Estradiol 34.3 pg/mL Normal [facility] Comment on above: Result Comment: Adul t Female: Follicular phase 12.5 - 166.0 Ovulation phase 85.8 - 498.0 Luteal phase 43.8 - 211.0 Postmenopausal <6.0 - 54.7 1st trimester 215.0 - >4300.0 Ele ECLIA methodology Performed By: #### E CHLOE #### [facility] [address] [place] [address] Dr. Vish Brown FSHon 11-17-2022 FSH 6.1 mIU/mL Normal [facility] Comment on above: Result Comment: Adul t Female: Follicular phase 3.5 - 12.5 Ovulation phase 4.7 - 21.5 Luteal phase 1.7 - 7.7 Postmenopausal 25.8 - 134.8 Performed By: #### L [facility] #### [facility] [address] [place] [address] Dr. Vish Brown LUTEINIZING HORMONE (LH)on 0 11-17-2022 LH 4.5 mIU/mL Normal [facility] Comment on above: Result Comment: Adul t Female: Follicular phase 2.4 - 12.6 Ovulation phase 14.0 - 95.6 Luteal phase 1.0 - 11.4 Postmenopausal 7.7 - 58.5 Performed By: #### L SUHAS #### [facility] [address] [place] [address] Dr. Vish Brown PROGESTERONEon 11-17-2022 Progesterone 0.8 ng/mL Normal [facility] Comment on above: Result Comment: Foll icular phase 0.1 - 0.9 Luteal phase 1.8 - 23.9 Ovulation phase 0.1 - 12.0 First trimester 11.0 - 44.3 Second trimester 25.4 - 83.3 Third trimester 58.7 - 214.0 Postmenopausal 0.0 - 0.1 Performed By: #### P TASNEEM #### [facility] [address] [place] [address] Dr. Vish Brown CBC AUTO DIFFon 11-16-2022 BASO # 0.0 103/ul Normal 0.0-0.1 [facility] Comment on above: Performed By: #### L BRUNA #### [facility] [address] [place] [address] Dr. Vish Brown Basophils/100 WBC (Bld) 0.5 % Normal 0.2-2.0 [facility] Comment on above: Performed By: #### L BRUNA #### [facility] [address] [place] [address] Dr. Vish Brown EO # 0.3 103/ul Normal 0.0-0.7 [facility] Comment on above: Performed By: #### L SUHAS #### [facility] [address] [place] [address] Dr. Vish Brown Eosinophils/100 WBC (Bld) 4.0 % Normal 0.9-7.0 [facility] Comment on above: Performed By: #### L BCL #### [facility] [address] [place] [address] Dr. Vish Brown Erythrocyte distribution width (RBC) [Ratio] 12.0 % Normal 11.0-15.0 [facility] Comment on above: Performed By: #### L BCL #### [facility] [address] [place] [address] Dr. Vish Brown Hematocrit (Bld) [Volume fraction] 39.1 % Normal 36.0-48.0 [facility] Comment on above: Performed By: #### L BCL #### [facility] [address] [place] [address] Dr. Vish Brown Hemoglobin (Bld) [Mass/Vol] 13.0 g/dL Normal 12.0-16.0 [facility] Comment on above: Performed By: #### L BCL #### [facility] [address] [place] [address] Dr. Vish Brown IG # 0.02 10e3/ul Normal 0.00-0.03 [facility] Comment on above: Performed By: #### L BCL #### [facility] [address] [place] [address] Dr. Vish Brown IG % 0.3 % Normal 0.0-0.5 [facility] Comment on above: Performed By: #### L BCL #### [facility] [address] [place] [address] Dr. Vish Brown LYMPH # 2.5 103/ul Normal 1.2-3.8 [facility] Comment on above: Performed By: #### L BCL #### [facility] [address] [place] [address] Dr. Vish Brown Lymphocytes/100 WBC (Bld) 32.4 % Normal 20.5-60.0 [facility] Comment on above: Performed By: #### L BCL #### [facility] [address] [place] [address] Dr. Vish Brown MANUAL DIFF REQ NO Normal [facility] Comment on above: Performed By: #### L BRUNA #### [facility] [address] [place] [address] Dr. Vish Brown MCH (RBC) [Entitic mass] 29.9 pg Normal 26.7-34.0 [facility] Comment on above: Performed By: #### L BRUNA #### [facility] [address] [place] [address] Dr. Vish Brown MCHC (RBC) [Mass/Vol] 33.2 g/dL Normal 29.9-35.2 [facility] Comment on above: Performed By: #### L BRUNA #### [facility] [address] [place] [address] Dr. Vish Brown MCV (RBC) [Entitic vol] 89.9 fL Normal 81.0-99.0 [facility] Comment on above: Performed By: #### L BRUNA #### [facility] [address] [place] [address] Dr. Vish Brown MONO # 0.6 103/ul Normal 0.3-0.8 [facility] Comment on above: Performed By: #### L BRUNA #### [facility] [address] [place] [address] Dr. Vish Brown Monocytes/100 WBC (Bld) 7.4 % Normal 1.7-12.0 [facility] Comment on above: Performed By: #### L BRUNA #### [facility] [address] [place] [address] Dr. Vish Brown NEUT # 4.3 103/ul Normal 1.4-6.5 [facility] Comment on above: Performed By: #### L BCL #### [facility] [address] [place] [address] Dr. Vish Brown Neutrophils/100 WBC (Bld) 55.4 % Normal 43.0-75.0 [facility] Comment on above: Performed By: #### L BRUNA #### [facility] [address] [place] [address] Dr. Vish Brown Platelet mean volume (Bld) [Entitic vol] 9.0 fL Critically low 9.5-13.5 [facility] Comment on above: Performed By: #### L [facility] #### [facility] [address] [place] [address] Dr. Vish Brown PLT 277 103/ul Normal 150-450 [facility] Comment on above: Performed By: #### L [facility] #### [facility] [address] [address] [address] Vish Brown RBC 4.35 106/ul Normal 4.20-5.40 [facility] Comment on above: Performed By: #### L [facility] #### [facility] [address] [address] [address] Vish Brown WBC 7.7 103/ul Normal 4.0-11.0 [facility] Comment on above: Performed By: #### L BCLH #### [facility] [address] [address] [address] Vish Brown FREE T4on 11-16-2022 Free T4 [Mass/Vol] 1.08 ng/dL Normal 0.76-1.46 [facility] Comment on above: Performed By: #### F T4 #### [facility] [address] [place] [address] Dr. Vish Brown GLYCOHEMOGLOBIN A1Con 2022 ADA RECOMMENDATION SEE BELOW Normal [facility] Comment on above: Result Comment: ADA RECOMMENDED LIMIT 4.0 - 6.0 ADA THERAPEUTIC TARGET < 7.0 ACTION SUGGESTED > 7.0 Performed By: #### A 1C #### [facility] [address] [place] [address] Dr. Vish Brown Glucose [Mass/Vol] 94 mg/dL Normal [facility] Comment on above: Performed By: #### A 1C #### [facility] [address] [place] [address] Dr. Vish Brown HbA1c (Bld) [Mass fraction] 4.9 % Normal 4.5-6.2 [facility] Comment on above: Performed By: #### A 1C #### [facility] [address] [address] [address] Vish Brown PREG QUANT HCGon 11-16-2022 HCG QUANT <1 Normal [facility] Comment on above: Performed By: #### P REGQNT, TSH #### [facility] [address] [address] [address] Vish Brown HCG RANGE SEE BELOW Normal [facility] Comment on above: Result Comment: 5-50 0.2-1 WEEK 50-500 1-2 WEEKS 100-5,000 2-3 WEEKS 500-10,000 3-4 WEEKS 1,000-50,000 4-5 WEEKS 10,000-100,000 5-6 WEEKS 15,000-200,000 6-8 WEEKS 10,000-100,000 2-3 MONTHS Performed By: #### P REGQNT, TSH #### [facility] [address] [place] [address] Dr. Vish Brown TSHon 11-16-2022 TSH 2.030 uIU/mL Normal 0.358-3.740 [facility] Comment on above: Performed By: #### P REGQNT, TSH #### [facility] [address] [place] [address] Dr. Vish Brown 19-49 Yearson 07-31-2022 19-49 [...] Occasional alcohol (more content not included)... Normal katena Tobacco Screening.on 023 Adult depression screening assessment No [facility] Work Phone: Fall risk assessment a) No falls within the last year [facility] Work Phone: Tobacco use status CPHS b) No M [facility] Work Phone: B-HCG SerPl-aCncon 2 HCG.beta subunit Qn m[IU]/mL Normal <5.0 [facility] Comment on above: Order Comment: Speci men Type: BLOOD SPECIMENOrdering Facility: [facility] Address: [address] [place] [address] Result Comment: Soledad kyle Performed By: #### G CCT #### [address] [place] [address] BACTERIAL VAGINOSIS AMPLIFIC ATIONon 04-16-2022 Lactobacillus crispatus+gasseri+jense james + Gardnerella vaginalis + Atopobium vaginae rRNA HUMERA+probe Ql (Vag fld) Negative Normal Negative for bacterial vaginosis [facility] Comment on above: Order Comment: Speci men Type: SWAB Ordering Facility: [facility] Address: [address] [place] [address] Performed By: #### C VTV, BVAMP #### [facility] CLIA [id number] [address] [place] [address] [facility] C. trachomatis+N. gonorrhoea e DNA HUMERA+probe Ql (Unsp spec)on 04-16-2022 C. trachomatis DNA HUMERA+probe Ql (Unsp spec) Negative Normal Negative for Chlamydia trachomatis by amplificaton [facility] Comment on above: Order Comment: Speci men Type: SWAB Ordering Facility: [facility] Address: [address] [place] [address] Performed By: #### C VTV, BVAMP #### [facility] CLIA [id number] [address] [place] [address] [facility] N. gonorrhoeae DNA HUMERA+probe Ql (Unsp spec) Negative Normal Negative for Neisseria gonorrhoeae by amplification [facility] Comment on above: Order Comment: Speci men Type: SWAB Ordering Facility: [facility] Address: [address] [place] [address] Performed By: #### C VTV, BVAMP #### [facility] CLIA [id number] [address] [place] [address] OF [facility] MITCH / TRICHOMONAS AMPLIF ICATIONon 04-16-2022 MITCH / TRICHOMONAS AMPLIFICATION MITCH SPECIES GROUP RNA: Negative for Mitch species MITCH GLABRATA RNA: Negative for Mitch glabrata TRICH VAG AMPLIFICATION RNA: Negative for Trichomonas vaginalis by amplification Normal [facility] Comment on above: Performed By: #### C VTV, BVAMP #### [facility] CLIA [id number] [address] [place] [address] OF [facility] CNCOon 04-16-2022 CNCO Letter Text Letter Text Normal [facility] CNOVon 04-16-2022 CNOV Office Visit (OBGA ) PRINCESS CANTU ([id number]) 1995 F Date Time Provider Department 04/16/22 8:00 AM BRENDAN BLANKENSHIP [facility] During your visit today, we [...] History Social History Narrative Single 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 I, Brendan Blankensihp, have reviewed this information as documented for accuracy and performed all elements of history taking, and edited the record as necessary. 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 #:[id number] BACTERIAL VAGINOSIS AMPLIFICATION [SQBVAMP] Order #: [id number]. #:[id number] GC/CHLAMYDIA DNA DET [SQGCCAMP] Order #: [id number]. #:[id number] SYPHILIS TOTAL W/REFLEX [SQSYPHTX] Order #: [id number] FUTURE HIV 1 2 COMBO(AG/AB),WITH REFLEX TO DIFFERENTIATION [SQHIV12] Order #: [id number] FUTURE HEP C AB IA W/CONF SCRN [METGOB8A] Order #: [id number] FUTURE HEP B SURF AG SCRN [SQHBSAG] Order #: [id number] FUTURE Prescriptions as of 04/16/2022 - lamoTRIgine [...] Encounter Status:Closed by BRENDAN BLANKENSHIP on 04/16/22 [facility] HBV surface Ab IA Ql (S)on 0 04-16-2022 HBV surface Ag Ql (S) Negative Normal Negative [facility] Comment on above: Order Comment: Speci men Type: BLOOD SPECIMENOrdering Facility: [facility] Address: [address] [place] [address] Performed By: #### G CCT #### [address] [phone] HCV Ab Ser Qlon 04-16-2022 HCV Ab Ql (S) Negative Normal Negative [facility] Comment on above: Order Comment: Speci men Type: BLOOD SPECIMEN Ordering Facility: [facility] Address: [address] [place] [address] Result Comment: The result suggests no evidence of active infection with Hepatitis C virus. Should recent infection be suspected, repeat testing may be considered 4-6 weeks after this draw. Performed By: #### 1 [id number] #### [facility] CLIA [id number] [address] [place] [address] [place] HIV 1+2 Ab IA Qlon 2 HIV 1 and 2 Ab IA.rapid Nom Normal [facility] Comment on above: Order Comment: Speci men Type: BLOOD SPECIMENOrdering Facility: [facility] Address: [address] [place] [address] Result Comment: Test not indicated. Performed By: #### G CCT #### [address] [phone] HIV 1+2 Ab+HIV1 p24 Ag IA Ql Non-Reactive Normal Nonreactive [facility] Comment on above: Order Comment: Speci men Type: BLOOD SPECIMENOrdering Facility: [facility] Address: [address] [place], [place] [id number] Performed By: #### G CCT #### [place] [phone] HIVINT Normal [facility] Comment on above: Order Comment: Speci men Type: BLOOD SPECIMENOrdering Facility: [facility] Address: [address] [place] [address] Result Comment: No e vidence of HIV-1 or HIV-2 infection. Should recent infection be suspected, repeat testing may be considered 2-3 weeks after this draw. [place] Rev. Code 3701.243(E): This information has been [...] diagnoses. Performed By: #### G CCT #### [place] [phone] Reagin and Treponema pallidu m IgG and IgM [Interp]on 04-16-2022 SYPHILIS INTERPRETATION Cannot exclude r ecent Treponemal infection if specimen collected within 7-10 days after appearance of suspect lesions or 2-3 weeks after an exposure. Clinical correlation is required. Normal [facility] Comment on above: Order Comment: Speci men Type: BLOOD SPECIMENOrdering Facility: [facility] Address: [address] [place] [address] Performed By: #### G CCT #### [address] [phone] T. pallidum IgG+IgM IA Ql (S) Non-Reactive Normal Nonreactive [facility] Comment on above: Order Comment: Speci men Type: BLOOD SPECIMENOrdering Facility: [facility] Address: [address] [place] [address] Performed By: #### G CCT #### [place] [phone] Coding Summary.on 03-27-2022 Coding Summary. [id number] Gh 0bWw+PGhlYWQ+XY9UZGJqG 24twKYmeR9XY4bTOB8JEKS HPNWPLF7PBM2nlLM1GHuqR 2VybiAv QmexaCYsNQ55MIt0UVT4sQ hcPExzaC4vgWFvH2y5GsAb JX34pU17TKztJLOlPyS4Pb ZpbjsgbWFy K4ouQhXqtXGqTyw+PHRhYm xlIHdpZHRoPScxMDAlJyBz aPsxAY5bGp0hYRMaZSBtvP xhcHNlOiBj e6vsZOJyGCheLZ3foByzJ0 MddUG8BNDly1h7Rb93kWN+ PQGlKKU2jHacYDpkc204Db Xla4euLUQ3 zLYwCXcwDWZ3Z09am3I1LM HoKNTrVSD7jVW4zW2dfSgw odsvT6GqlCLwZpG0QIV7aG NgvP6knHvv umhsmU5cQco+Y11TTD6EAI NCXP3UMor5U1JdFeekeRT+ SD77HJPmLC65mFQwrVYbt9 zwzCt6OhWu GGBoBVN9wTowWTvjp5ExJX LcB29xeHQqe2T8ANDwnZiu cDFjSxFjyBX4iM9qWTzjzg gyz8pzdiaf Eohhf2qsik01nK69O09gRT ioUWYgXJK7UQJnVMPlzWxq bx1tdC0zRo4+THktc8uul9 mnzCq5RlCh LDHtfcAjfFvoAZD1f5HjYy 13E8TtuPgru6QzWvw1fa24 nDUtp5E5mNL3KCylQFYctS 8uLRcrZrY6 YNMgFaCkgX24iAAjBEygYv 6eyJewlMbzWP1nENBrgyof ISLybZ8pCJGtkGTivGbsJM 4wNTBpbjtm e845VtDiCTG3PIHwyUPeV9 PjhD7eOySfZBTvUTTjE3Vf wSCyTQggR607BIuhXyD5XN GpynIcH6Gq NQVroJrqEuX6y8W8Lx2Mw1 KytslvORT7LRufVMK7LaL5 MqLuFjF0W8VfTwd0XLInbN noGO8qE0Xr MHDizagpgickaJD2CLEgRP NeuO42kXSaVWjmEa8wc2H1 x118ZGBqBHPrhF94Xj0esJ ogMTBwdCBU hX6fozzad7hadeicFsKpZB PjMKy1XJr1YTQphXmkWfIy ZAX8DyG7HTX7vBEreZ9gbR pcnkfsaF3r Oyc+Z47slO8fDQA0HOL5tw gvPTUbblKaDD95PJ67Q4Nw PjwvdGFibGU+PGRpdiBzdH qpHK5qNoLf v7pdv6PyPSglO3LwZASsWT vkBfx9YGRrGNX9jNU0vM1q EDCuYVzjz9Q1rOK3X1Bmhr Pytw5uv0ut QSGaWNubV01tpTChb1A5GA PfrFR3LKFtpKfjUlYssX79 Oyc+ZLJssLnxs0FfLbnmc1 mup6cmmPq7 FsKyLBSnkjVomTxbHUS8e3 UrUo35Z40rGGibMITmGZOv JBCoFBHkzSbtei1loJ2zMz 8+PGNvbCB3 bFF4bA1fODZkXuJ1HUaiX6 15GeXoiXDjYkmkr7vsp4tz oQz7QjIrDHPguqDacFxiKR P7l1LfPh07 U06nGLefXWQsBDEkMVGfNT WyeRcgfw0cwZ6fDh6+PC9j h6rrbo67yS62lOH+PHRkIH E1fYefCNez KZTnbQ3gUBscSfT9PYTnNn SizS28pSHxLMlsTh7eeEqc cMgnRT5aYSDymutoa883Pv Yaf6mjJCZf aUYxHCtfLBU4Y09mj0V2KE QdGEFaCXA7aFI9jY1xqJdx bjogbGVmdDsgdmVydGljYW luJBzrG450 IHRvcDsnPlBhdGllbnQgTm RtNEg5J1FpFth3DPGxpQyv YC2pdQGuCOjoJu9vjLddnX juTG4wGPEk qtxef833KbAwg8puMKPvoV HiBSlwHBX8C68ta1F5JSIc UMRlQNE4bYX4fI3nfHgvbg ogbGVmdDsg bbRyxOqoCUmgBEbvC256FN RvcDsnPkJpcnRoIERhdGU6 FO39NK50hPUid0P3hET5R9 BhZGRpbmct hiculHQ2QBFsUCGdeV15Iq 5ikBodDi9gDCZwEVQ8KZLd bFKeC6CtfW6oUiDeYMDvUN VtL8XleTGh HZelB694WAuiOyX9KWJvms BeM2EmSZXhnRvlLtP5c5B2 Wg3KD9N2SP83XU61aHGtc4 U8vVR1D4Yg OONffidwspgzoAW3XSUcUZ OxoD34Cr4dvQdoNv1fLJOc JOA4GZXqpBPrN6LxjO1qLw AjMDAwMDAw R0BzuBHfJHfjO918UUywTt D6JTYxhzBxR0NzQNNkrGvh JkG9m3V1Zw0UDRe6ER34WZ 92uACch9X2 xZQ1A4GyDCNpmvuoiegrrH Z0XLRqKDZjnY33Bp6kzZux Bq0rEMZdZZG7CSIisDVvX1 JncG1oUkUt IGVyLBQpK5PqmFClUIzlZ5 50JXsfZtX3IIBwepNkX0Wv HWOpaEjtNeI3s4Y3Wc6YLR QtCA82UYY2 uWP5GP67JS24Z6YrSvfdfG FibGU+PHRhYmxlIHdpZHRo HHapKHXmKwZeiAfxKW2mLi 9yZGVyLWNv rZvszPCkZrJgp3vcFEXfYG nxTN2fcCacF1RnxDN9SQPc j2z0We08K58xD7IqsRE+PG MwqXB7iMP8 dN9lUrClCyD1BWjnQ935Ce HstEBsMsnuz5wkc0lqrJs6 ZoL3HKKcmiTdhAmkPFW9o5 AtEo75K65t IHdpZHRoPSIxNSUiIHZhbG qibc3ctK4qFj4+PGNvbCB3 gMO9yU7fPeHbGnB5ORfpT1 49InRvcCIv Eubmr2oma8lhoPm7MpBtSF ExbpZbnGxnFPE3j4KhBj72 T7MjyMddc6BjKbh5tn20uF Nii0E5fPB4 M0EcPOXpfaxygOWjnCycOW 6nSJZcutsbLHFklL0bGFUq W4r5HtHzDdV2FXftY2Vwgg K0KUYhqFIa UEwqTLS9U15it2B7FFZmHT NoMHY8lSQ2tA0elJuezkdb bGVmdDsgdmVydGljYWwtYW kiC377EXPw fTvqISQnqJ7cNNOkfUDafT avMA6mNHOawjvqLuDGI6zt RQ0IR9AQJHV5J6XdIwi6QF FdhWwaZP5i gIUnRWjyFr5miRkznRqrQX 9nJVBrfyfpSCOncM2xZRLa eQNbfMduSO9kLPGmvpgsl2 11QyIpXRX5 FBSqyECdY7SfcA9pWvHdRC JsLTTwK5FapFQgTHfmS433 ETjsNcP1EBTggmCwJ6VfAI FsaWduOiB0 h1M2Zj3lRa2gHm1qHRd7CG 87UU71yLBfq4N5rNP1F2Qd DOEwveowllmrlHT8NUBjMR WwhQ59rUSd ARmhKp2gw5G4i029EKMjLJ EuvJ80Ll7ghBwaPYWouLQS sV1nkvidz7nfupknYlKvHX SzUEe2HSl3 HTNycIavZcNmHRF3HtN0GK E6dDGzsP6ztMaderwqyG2z Oyc+CtrfZYPiveT7G8CpIt q5DLQclPwf CJ3pnWCoUMwjLy9zxLoutD cbIG7uBVOcepbmVHIrhO9a YQDfqDIvhLiaXZ1fSPBsmd nxw335NpNm NIV7ZYOqpJFfX8UscU3xEw CpNGUiJTVsQ8RiuLCyBTgb U418AJzsUdA7RKCvkoMqO5 FsLWFsaWdu ApW8e3T6Es9TJA7hxHP4G6 ZsZmf9ZXGdjWfqZF2tgLIo DQooPe1mmMhwpTjzNR6fYH BpbjtwYWRk eZ4vRGNihMXcqFajTK4nSY Wdfgfrg110UvRgYXB8TDBe bALfU0VrsV7gPzQxUGEpCT OtH0UdmBMi GMapU712TSxcYfE1RKLonl RhL4PzTPOvhZwdUvX6p3D0 Is3SqGMmWGAzQD96NR85CA 23M3DyCusb dGFibGU+PHRhYmxlIHdpZH IfXGyzTPArLwExrWhvGH8e Gn8qFYGuVZJogPrakQRdHu Fay2gcYHIp BEltJC6kvLtbO7NjpLK1PH Gow1r9Qc90X94sX1IyaMH+ UYBzdEO6pWY3kM3cQgMgIh S9UYnlA043 KsUndYSsTlewr6gvz5jyzV t4AjXbJCOjbxKlkPmuKLM7 i3NyGk92D66pSXzcRVQkXG IyMCUiIHZh xBzzgi8qlX1wUd8+PGNvbC M0yAA0hX1jFbZgKjU0YAvl B193NpXpnNJuHyidP29gK6 JvdXA+PHRy Ngm4OCJbwZldWQ2nbREgKT ncLd8nQUP7EaAfGvZvYBnj Z7ZyKAOnrpourtvraFT3RU OtDLVhzR86 Bx0bbMktZg9kUPUdKDU0VV ZmwHQhC5MycW3dNfAmKGTm VFNqX3DxfXYqCHthS408TO zeYpL3VQPf mzDbG2FiZCYuvBrnWlB7j3 R5St1KhSqccPZeJK7aHdYk GIi3U5ApCyw3OAGdxAzaJX 0ncGFkZGlu Yk6ocVnvdQcvQH6uRLDstq nco777YvWdp7hbRLSmoLVb WHnuRXX1U35mp9A3CFLoWK EfVZN4bKV9 wK4sxAulzwjbzLVlqNxdon EyfEiwWHqqNHglQ719KNIp iOvwWlGKGix3W9EiKkl1EH VfwSvpDF2k aDJiJKvjLm0bmZuakZmrIQ 0xYHGhgpgym807LgYxt5kr VNUstOMfSDcjRRQ8N58qd5 J2KSMmXRFx LCS8pPG2dZ9pwTyavuuplL VmdDsgdmVydGljYWwtYWxp B232RDJlgIonEe4PWfm2E4 OpKwt1GNWg sUsmGS8ltETdOSguUe9uyX hgwCvdCD9bHQVijoipr725 KsHcs5ioVPGjqBObKYbdHV L3V56mp8W4 OSQtBPZwGZG4pZF9eY6rxR lnbjogbGVmdDsgdmVydGlj CIriLVaxJ038VGKopEzlCx BheWVyOjwv dGQ+UU37qg16M9DbPynfSw z3GSOwEOC0rLP7uT9xSWYu JCekn3D7vSF6Z3JswcJbfq 1ao7urVYVy ZTog (more content not included)... Normal [facility] BhCG Quanton 03-24-2022 HCG.beta subunit Qn 1 m[IU]/mL Normal 1-3 [facility] Comment on above: Result Comment: GEST ATIONAL AGE HCG RANGE (mIU/mL) NON- <1-3 0.2-1 WEEKS 5-50 1-2 WEEKS 50-500 2-3 WEEKS 100-5,000 3-4 WEEKS 500-10,000 4-5 WEEKS 1,000-50,000 5-6 WEEKS 10,000-100,000 6-8 WEEKS 15,000-200,000 8-12 WEEKS 10,000-100,000 Performed By: #### 2 [id number] #### [facility] [address] [place] [address] CHEMISTRYOrdered By: SYSTEM SYSTEM on 03-24-2022 HCG.beta subunit Qn 1 m[IU]/mL Normal 1 - 3 mIU/mL FTM C Remisol CNPDebora 03-24-2022 [facility] Telephone ([facility]) PRINCESS CANTU ([id number]) 1995 F Date Time Provider Department 03/24/[address] [facility] During your visit today, we recorded the [...] Fully Assessed Reason for Visit: Bleeding With [49057] Primary Visit Diagnosis:Bleeding in early [O20.9] Order(s):HCG QUANTITATIVE [SQHCGQT] Order #: [id number] FUTURE Prescriptions as of 03/24/2022 - metroNIDAZOLE [...] Status:Closed by BRENDAN SOUZA on 03/24/22 Normal [facility] Consent for Treatmenton Consent for Treatment [id number] 0CD:127 [facility] Physician Orderon 03-24-2022 Physician Order [id number] 0CD:127 [facility] CNPNon 03-19-2022 CNPN Telephone ([facility]) ALONDRAANNABELN Alison ([id number]) 1995 F Date Time Provider Department 03/19/22 GEOR[place]IA DWYER [facility] During your visit today, we recorded [...] Status:Closed by MARY ONOFRE on 03/19/22 Normal [facility] Office Visit (Neuro-General) on 12-24-2021 Follow-up [...] for seizures. History of Present Illness PRINCESS CNATU is a 26 year old female who [...] bowel/bladder incontinence. She was taken to [facility] in [place]. She had lab work and a CT [...] DAILY. Vitals Vital Signs Recorded: 24Dec2021 11:32AM Mshrirmwxcd04.1 F Heart Rate54 Dbyzkctr393 Pbuoyojdy25 Height5 ft 9 in Hlydtb605 lb 1.6 oz BMI Wgnmlpedwp38.03 kg/m2 BSA Calculated2.11 Tobacco Useb) No Fall Screeninga) No falls within the last year O2 Suqgbqjjws529, RA Physical Exam Constitutional: General appearance: no [...] No falls within the last year MP-Neurolog y[facility] [facility] DO Work Phone: Tobacco use status [...] Nov 17 2021 1:34PM EST (Author) Normal katena Tobacco Screening.on 022 Adult depression screening assessment No MP-[facility] [employer] Phone: Fall risk assessment a) No falls within the last year [facility] [employer] Phone: Tobacco use status CPHS b) No M P-[facility] [employer] Phone: Bact Vag Amplificationon Bact Vag Amplification Positive Criticall y abnormal Negative for bacterial vaginosis [facility] Comment on above: Performed By: #### G CCT #### [facility] [address] [place] [id number] CNOVon 09-09-2021 [facility] PRINCESS CANTU ([id number]) 1995 F Date Time Provider Department 09/09/21 10:00 AM BRENDAN 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 Portions of this record were documented by the Body Shop Supervisor. I, Brendan Blankenship, have reviewed this information as documented for accuracy and performed all elements of history taking, and edited the record as necessary. 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 [...] Order(s):MITCH / TRICHOMONAS AMPLIFICATION [SQCVTV] Order #: [id number] BACTERIAL VAGINOSIS AMPLIFICATION [SQBVAMP] Order #: [id number] GC/CHLAMYDIA DNA DET [SQGCCAMP] Order #: [id number] metroNIDAZOLE (FLAGYL) 500 mg tabletTake 1 tablet [...] Encounter Status:Closed (more content not included)... Normal [facility] Mitch Trich Amplon 022 Mitch glabrata RNA Negative Normal Negative [facility] Comment on above: Performed By: #### G CCT #### [place] [address] [place] [phone] Mitch sp group RNA Negative Normal Negative [facility] Comment on above: Performed By: #### G CCT #### [place] [address] [place] [phone] Trichomonas RNA Negative Normal [facility] Comment on above: Performed By: #### G CCT #### [place] [address] [place] [phone] GC/Chlamydia Amplifon 2021 Chlamydia Amplif Negative Normal [facility] Comment on above: Performed By: #### G CCT #### [place] [phone] GC Amplification Negative Normal [facility] Comment on above: Performed By: #### G CCT #### [place] [phone] GC/Chlam Amp Source Cervix Normal [facility] Comment on above: Performed By: #### G CCT #### [place] [phone] Bact Vag Amplificationon Bact Vag Amplification Negative Normal Negat ko for bacterial vaginosis [facility] Comment on above: Performed By: #### C VTV, BVAMP #### [facility] CLIA [id number] [address] [place] [address] STATES OF [facility] CNOVon 07-04-2021 [facility] PRINCESS CANTU ([id number]) [address] 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 Normal [facility] Mitch Trich Amplon 021 Mitch glabrata RNA Negative Normal Negative [facility] Comment on above: Performed By: #### C VTV, BVAMP #### [facility] CLIA [id number] [address] [place] [address] [place] Mitch sp group RNA Negative Normal Negative [facility] Comment on above: Performed By: #### C VTV, BVAMP #### [facility] CLIA [id number] [address] [place] [address] [place] Trichomonas RNA Negative Normal [facility] Comment on above: Performed By: #### C VTV, BVAMP #### [facility] CLIA [id number] [address] [place] [address] [place] GC/Chlamydia Amplifon 2020 Chlamydia Amplif Negative Normal [facility] Comment on above: Performed By: #### G CCT #### [place] [address] [place] [address] GC Amplification Negative Normal [facility] Comment on above: Performed By: #### G CCT #### [place] [address] GC/Chlam Amp Source Cervix Normal [facility] Comment on above: Performed By: #### G CCT #### [place] [id number] Tobacco Screening.on 021 Fall risk assessment a) [...] trachomatis and Neisseria gonorrhoeae testing on specific zxz-FNK-zvwnsfxq sample types (female urine samples) have been validated by [facility]. This laboratory is certified by CLIA to [...] trachomatis and Neisseria gonorrhoeae testing on specific eeu-TJL-ihstaamn sample types (female urine samples) have been validated by [facility]. This laboratory is certified by CLIA to perform high complexity testing. Samples from all other sites are not validated for this method. TSHon 12-24-2020 TSH Qn 2.30 m[IU]/L Normal 0.44 - 3.98 [facility] Comment on above: Result Comment: TSH testing is performed using different testing methodology at [facility] than at other [facility]. Direct result comparisons should only be made within the same method. Performed By: #### T SH2 #### [facility] [id number] [place] [address] TSH - Thyroid Stimulating Ho ti, Serumon 12-24-2020 TSH Qn 2.30 m[IU]/L See Below [employer] Phone: Comment on above: Reference Range: 0.4 4 - 3.98 TSH testing is performed using different testing methodology at [facility] than at other [facility]. Direct result comparisons should only be made within the same method. Tobacco Screening.on 021 Fall risk assessment a) No falls within the last year [employer] Phone: Tobacco use status CPHS b) No M [employer] Phone: CBCon 08-14-2020 Erythrocyte distribution width (RBC) [Ratio] 13.2 % Normal 11.5 - 14.5 [facility] Comment on above: Performed By: #### C BC #### [address] [address] Hematocrit (Bld) [Volume fraction] 39.5 % Normal 36.0 - 46.0 [facility] Comment on above: Performed By: #### C BC #### [address] [address] Hemoglobin (Bld) [Mass/Vol] 13.0 g/dL Normal 12.0 - 16.0 [facility] Comment on above: Performed By: #### C BC #### [address] [address] MCHC (RBC) [Mass/Vol] 32.9 g/dL Normal 32.0 - 36.0 [facility] Comment on above: Performed By: #### C BC #### [address] [address] MCV (RBC) [Entitic vol] 91 fL Normal 80 - 100 [facility] Comment on above: Performed By: #### C BC #### [address] [address] NUCLEATED RBC 0.0 /100 WBC Normal 0.0 - 0.0 [facility] Comment on above: Performed By: #### C BC #### [address] [address] Platelets (Bld) [#/Vol] 235 10*3/uL Normal 150 - 450 [facility] Comment on above: Performed By: #### C BC #### [address] [address] RBC 4.33 x10E12/L Normal 4.00 - 5.20 [facility] Comment on above: Performed By: #### C BC #### [address] [address] WBC (Bld) [#/Vol] 5.8 10*3/uL Normal 4.4 - 11.3 [facility] Comment on above: Performed By: #### C BC #### [address] [address] COMPREHENSIVE PANELon 2020 Albumin [Mass/Vol] 4.7 g/dL Normal 3.4 - 5.0 [facility] Comment on above: Performed By: #### C MP #### [address] [address] ALP [Catalytic activity/Vol] 53 U/L Normal 33 - 110 [facility] Comment on above: Performed By: #### C MP #### [address] [address] ALT [Catalytic activity/Vol] 41 U/L Normal 7 - 45 [facility] Comment on above: Result Comment: Desiree ents treated with Sulfasalazine may generate falsely decreased results for ALT. Performed By: #### C MP #### [address] [address] Anion gap [Moles/Vol] 10 mmol/L Normal 10 - 20 [facility] Comment on above: Performed By: #### C MP #### [address] [address] AST [Catalytic activity/Vol] 27 U/L Normal 9 - 39 [facility] Comment on above: Performed By: #### C MP #### [address] [place] [address] Bilirubin [Mass/Vol] 0.6 mg/dL Normal 0.0 - 1.2 [facility] Comment on above: Performed By: #### C MP #### [address] [place] [address] Calcium [Mass/Vol] 9.5 mg/dL Normal 8.6 - 10.3 [facility] Comment on above: Performed By: #### C MP #### [address] [address] Chloride [Moles/Vol] 105 mmol/L Normal 98 - 107 [facility] Comment on above: Performed By: #### C MP #### [address] [address] Creatinine [Mass/Vol] 0.93 mg/dL Normal 0.50 - 1.05 [facility] Comment on above: Performed By: #### C MP #### [address] [address] GFR- AM. >60 Normal >60 [facility] Comment on above: Result Comment: CALC ULATIONS OF ESTIMATED GFR ARE PERFORMED USING THE MDRD STUDY EQUATION FOR THE IDMS-TRACEABLE CREATININE METHODS. CLIN CHEM 2007;53:766-72 Performed By: #### C MP #### [address] [address] GFR-NON AM. >60 Normal >60 [facility] Comment on above: Performed By: #### C MP #### [address] [address] Glucose [Mass/Vol] 94 mg/dL Normal 74 - 99 [facility] Comment on above: Performed By: #### C MP #### [address] [address] HCO3 (Bld) [Moles/Vol] 28 mmol/L Normal 21 - 32 [facility] Comment on above: Performed By: #### C MP #### [address] [place] [address] Potassium [Moles/Vol] 4.4 mmol/L Normal 3.5 - 5.3 [facility] Comment on above: Performed By: #### C MP #### [address] [place] [address] Protein [Mass/Vol] 7.3 g/dL Normal 6.4 - 8.2 [facility] Comment on above: Performed By: #### C MP #### [address] [place] [address] Sodium [Moles/Vol] 139 mmol/L Normal 136 - 145 [facility] Comment on above: Performed By: #### C MP #### [address] [place] [address] Urea nitrogen [Mass/Vol] 13 mg/dL Normal 6 - 23 [facility] Comment on above: Performed By: #### C MP #### [address] [place] [address] Hematologyon 08-14-2020 Hematocrit (Bld) [Volume fraction] 39.5 % See Below -Neurolog -[facility] DO Work Phone: Comment on above: Reference Range: 36. 0 - 46.0 Hemoglobin (Bld) [Mass/Vol] 13.0 g/dL See Below -Neurolog -[place] [facility] DO Work Phone: Comment on above: Reference Range: 12. 0 - 16.0 MCV (RBC) [Entitic vol] 91 fL 80 - 100 M P-Neurolog -[place] [facility] DO Work Phone: Platelets (Bld) [#/Vol] 235 {x10E9/L} 150 - 450 -Neurolog y-[place] [facility] DO Work Phone: RBC (Bld) [#/Vol] 4.33 {x10E12/L} See Below [facility] DO Work Phone: Comment on above: Reference Range: 4.0 0 - 5.20 WBC (Bld) [#/Vol] 5.8 {x10E9/L} 4.4 - 11.3 MP-N eurolog y-[place] [facility] DO Work Phone: WBC (Bld) [#/Vol] 0.0 {/100_WBC} 0.0 - 0.0 MP- [facility] [facility] DO Work Phone: LAMOTRIGINE- LAMICTALon 07-20 LAMOTRIGINE- LAMICTAL 6.4 ug/mL Normal 2.5 - 15.0 [facility] Comment on above: Performed By: #### L AMOT #### [facility] [address] [place] [address] Lamotrigine Level, Serumon 0 08-14-2020 Lamotrigine [Mass/Vol] 6.4 ug/mL 2.5 - 15.0 MP -Neurolog y[facility] [facility] DO Work Phone: Metabolic Panelon 08-14-2020 ALP [Catalytic activity/Vol] 53 U/L 33 - 110 [facility]-Ne[facility]rolog y[facility] [facility] DO Work Phone: Anion gap [Moles/Vol] 10 mmol/L 10 - 20 MP- Neurolog y-[place] [facility] DO Work Phone: Bilirubin [Mass/Vol] 0.6 mg/dL 0.0 - 1.2 MP-N eurolog [facility] [facility] DO Work Phone: Calcium [Mass/Vol] 9.5 mg/dL 8.6 - 10.3 MP-Jozef rolog y-[place] [facility] DO Work Phone: Chloride [Moles/Vol] 105 mmol/L 98 - 107 MP-N eurolog y[facility] [facility] DO Work Phone: CO2 [Moles/Vol] 28 mmol/L 21 - 32 MP-Neurol og y-[place] [facility] DO Work Phone: Creatinine [Mass/Vol] 0.93 mg/dL See Below - [facility] DO Work Phone: Comment on above: Reference Range: 0.5 0 - 1.05 Glucose [Mass/Vol] 94 mg/dL 74 - 99 -[facility] DO Work Phone: Potassium [Moles/Vol] 4.4 mmol/L 3.5 - 5.3 - [facility] DO Work Phone: Protein [Mass/Vol] 7.3 g/dL 6.4 - 8.2 -[facility] DO Work Phone: Sodium [Moles/Vol] 139 mmol/L 136 - 145 -[facility] DO Work Phone: Urea nitrogen [Mass/Vol] 13 mg/dL 6 - 23 -[facility] DO Work Phone: Otheron 08-14-2020 Albumin BCP dye [Mass/Vol] 4.7 g/dL 3.4 - 5.0 -[facility] DO Work Phone: ALT With P-5'-P [Catalytic activity/Vol] 41 U/L 7 - 45 [facility] DO Work Phone: Comment on above: Patients treated wit h Sulfasalazine may generate falsely decreased results for ALT. AST With P-5'-P [Catalytic activity/Vol] 27 U/L 9 - 39 -[facility] DO Work Phone: Erythrocyte distribution width (RBC) [Ratio] 13.2 % See Below [facility] DO Work Phone: Comment on above: Reference Range: 11. 5 - 14.5 MCHC (RBC) [Mass/Vol] 32.9 g/dL See Below [employer] [facility] [employer] [facility] DO Work Phone: Comment on above: [...] areas of abnormal enhancement after contrast administration. [employer] [place] EXAMINATION: MRI BRA IN W WO CONTRAST [...] The calvarium and soft tissues are unremarkable. [facility] [place], Chpo Incoming Radiant Results From [facility]/UNI5 - 05/09/2020 3:02 PM EDT EXAMINATION: MRI [...] areas of abnormal enhancement after contrast administration. [place], [place] MRI BRAIN W WO CONTRAST EXAMINATION: [...] David Winter MD 05/09/20 Final result Normal [facility] CBC With Platelet and Differ entialon 04-19-2020 Basophils (Bld) [#/Vol] 0.1 10*3/uL Normal 0.0-0.2 [facility] Comment on above: Performed By: #### C BCWD #### [facility] [address] [place] [address] Basophils/100 WBC (Bld) 0.4 % Normal [facility] Comment on above: Performed By: #### C BCWD #### [facility] [address] [place] [address] Eosinophils (Bld) [#/Vol] 0.5 10*3/uL Normal 0.0-0.7 [facility] Comment on above: Performed By: #### C BCWD #### [facility] [address] [place] [address] Eosinophils/100 WBC (Bld) 4.2 % Normal [facility] Comment on above: Performed By: #### C BCWD #### [facility] [address] [place] [address] Erythrocyte distribution width (RBC) [Ratio] 12.5 % Normal 11.5-14.5 [facility] Comment on above: Performed By: #### C BCWD #### [facility] [address] [place] [address] Hematocrit (Bld) [Volume fraction] 39.4 % Normal 37.0-47.0 [facility] Comment on above: Performed By: #### C BCWD #### [facility] [address] [place] [address] Hemoglobin (Bld) [Mass/Vol] 13.3 g/dL Normal 12.0-16.0 [facility] Comment on above: Performed By: #### C BCWD #### [facility] [address] [place] [address] Lymphocytes (Bld) [#/Vol] 3.2 10*3/uL Normal 1.0-4.8 [facility] Comment on above: Performed By: #### C BCWD #### [facility] [address] [place] [address] Lymphocytes/100 WBC (Bld) 26.9 % Normal [facility] Comment on above: Performed By: #### C BCWD #### [facility] [address] [place] [address] MCH (RBC) [Entitic mass] 29.8 pg Normal 27.0-31.3 [facility] Comment on above: Performed By: #### C BCWD #### [facility] [address] [place] [address] MCHC (RBC) [Mass/Vol] 33.8 % Normal 33.0-37.0 [facility] Comment on above: Performed By: #### C BCWD #### [facility] [address] [place] [address] MCV (RBC) [Entitic vol] 88.4 fL Normal 82.0-100.0 M [facility] Comment on above: Performed By: #### C BCWD #### [facility] [address] [place] [address] Monocytes (Bld) [#/Vol] 0.8 10*3/uL Normal 0.2-0.8 [facility] Comment on above: Performed By: #### C BCWD #### [facility] [address] [place] [address] Monocytes/100 WBC (Bld) 6.8 % Normal M [facility] Comment on above: Performed By: #### C BCWD #### [facility] [address] [place] [address] Neutrophils (Bld) [#/Vol] 7.3 10*3/uL Critically high 1.4-6.5 [facility] Comment on above: Performed By: #### C BCWD #### [facility] [address] [place] [address] Neutrophils/100 WBC (Bld) 61.7 % Normal [facility] Comment on above: Performed By: #### C BCWD #### [facility] [address] [place] [address] Platelets (Bld) [#/Vol] 314 10*3/uL Normal 130-400 [facility] Comment on above: Performed By: #### C BCWD #### [facility] [address] [place] [address] RBC (Bld) [#/Vol] 4.45 10*6/uL Normal 4.20-5.40 [facility] Comment on above: Performed By: #### C BCWD #### [facility] [address] [place] [address] WBC (Bld) [#/Vol] 11.9 10*3/uL Critically high 4.8-10.8 [facility] Comment on above: Performed By: #### C BCWD #### [facility] [address] [place] [address] CT HEAD WO CONTRASTon 2019 CT HEAD [...] De Jesus DO 04/19/20 Final result Normal [facility] Comprehensive Metabolic Pane crescencio 04-19-2020 Albumin [Mass/Vol] 4.9 g/dL Critically high 3.5-4.6 M [facility] Comment on above: Performed By: #### C MP #### [facility] [address] [place] [address] ALP [Catalytic activity/Vol] 40 U/L Normal 40-130 [facility] Comment on above: Performed By: #### C MP #### [facility] [address] [place] [address] ALT [Catalytic activity/Vol] 17 U/L Normal 0-33 [facility] Comment on above: Performed By: #### C MP #### [facility] [address] [place] [address] Anion gap [Moles/Vol] 14 mmol/L Normal 9-15 [facility] Comment on above: Performed By: #### C MP #### [facility] [address] [place] [address] AST [Catalytic activity/Vol] 17 U/L Normal 0-35 [facility] Comment on above: Performed By: #### C MP #### [facility] [address] [place] [address] Bilirubin [Mass/Vol] mg/dL Normal 0.2-0.7 [facility] Comment on above: Performed By: #### C MP #### [facility] [address] [place] [address] Calcium [Mass/Vol] 10.0 mg/dL Critically high 8.5-9.9 [facility] Comment on above: Performed By: #### C MP #### [facility] [address] [place] [address] Chloride [Moles/Vol] 101 mmol/L Normal 95-107 [facility] Comment on above: Performed By: #### C MP #### [facility] [address] [place] [address] CO2 [Moles/Vol] 24 mmol/L Normal 20-31 [facility] Comment on above: Performed By: #### C MP #### [facility] [address] [place] [address] Creatinine [Mass/Vol] 0.87 mg/dL Normal 0.50-0.90 [facility] Comment on above: Performed By: #### C MP #### [facility] [address] [place] [address] GFR/1.73 sq M predicted among blacks MDRD (S/P/Bld) [Vol rate/Area] mL/min/{1.73_m2} Normal >60 [facility] Comment on above: Result Comment: >60 mL/min/1.73m2 EGFR, calc. for ages 18 and older using the MDRD formula (not corrected for weight), is valid for stable renal function. Performed By: #### C MP #### [facility] [address] [place] [address] GFR/1.73 sq M.predicted MDRD (S/P/Bld) [Vol rate/Area] mL/min/{1.73_m2} Normal >60 [facility] Comment on above: Result Comment: >60 mL/min/1.73m2 EGFR, calc. for ages 18 and older using the MDRD formula (not corrected for weight), is valid for stable renal function. Performed By: #### C MP #### [facility] [address] [place] [address] Globulin (S) [Mass/Vol] 3.1 g/dL Normal 2.3-3.5 M [facility] Comment on above: Performed By: #### C MP #### [facility] [address] [place] [address] Glucose [Mass/Vol] 94 mg/dL Normal 70-99 [facility] Comment on above: Performed By: #### C MP #### [facility] [address] [place] [address] Potassium [Moles/Vol] 3.9 mmol/L Normal 3.4-4.9 [facility] Comment on above: Performed By: #### C MP #### [facility] [address] [place] [address] Protein [Mass/Vol] 8.0 g/dL Normal 6.3-8.0 [facility] Comment on above: Performed By: #### C MP #### [facility] [address] [place] [address] Sodium [Moles/Vol] 139 mmol/L Normal 135-144 [facility] Comment on above: Performed By: #### C MP #### [facility] [address] [place] [address] Urea nitrogen [Mass/Vol] 12 mg/dL Normal 6-20 [facility] Comment on above: Performed By: #### C MP #### [facility] [address] [place] [address] Lactic Acidon 04-19-2020 Lactate [Moles/Vol] 1.8 mmol/L Normal 0.5-2.2 [facility] Comment on above: Performed By: #### L ACID #### [facility] [address] [place] [address] Prolactinon 04-19-2020 Prolactin 160.8 ng/mL Normal [facility] Comment on above: Result Comment: Defa ult Normal Ranges Female Male Non: 4.8-23.3 4.0-15.2 Performed By: #### P JAISON #### [facility] [address] [place] [address] Serum HCG Qualitativeon HCG.beta subunit Qn Negative Normal [facility] Comment on above: Performed By: #### S HCG #### [facility] [address] [place] [address] Urinalysis, reflex to cultur emily 04-19-2020 Urine Reflexed to Culture Not Indicated Normal [facility] Comment on above: Performed By: #### U AR #### [facility] [address] [place] [address] Bilirubin Ql (U) Negative Normal Negative [facility] Comment on above: Performed By: #### U AR #### [facility] [address] [place] [address] Clarity (U) Clear Normal Clear [facility] Comment on above: Performed By: #### U AR #### [facility] [address] [place] [address] Color (U) Yellow Normal Straw/Otsego [facility] Comment on above: Performed By: #### U AR #### [facility] [address] [place] [address] Glucose Ql (U) Negative Normal Negative [facility] Comment on above: Performed By: #### U AR #### [facility] [address] [place] [address] Hemoglobin Ql (U) Trace-intact Normal Negative [facility] Comment on above: Performed By: #### U AR #### [facility] [address] [place] [address] Ketones Ql (U) Negative Normal Negative [facility] Comment on above: Performed By: #### U AR #### [facility] [address] [place] [address] Leukocyte esterase Test strip Ql (U) Negative Normal Negative [facility] Comment on above: Performed By: #### U AR #### [facility] [address] [place] [address] Nitrite Ql (U) Negative Normal Negative [facility] Comment on above: Performed By: #### U AR #### [facility] [address] [place] [address] pH (U) 6.0 [pH] Normal 5.0-9.0 [facility] Comment on above: Performed By: #### U AR #### [facility] [address] [place] [address] Protein Ql (U) Negative Normal Negative [facility] Comment on above: Performed By: #### U AR #### [facility] [address] [place] [address] Specific gravity (U) [Rel density] 1.020 Normal 1.005-1.03 [facility] Comment on above: Performed By: #### U AR #### [facility] [address] [place] [address] Urobilinogen Qn (U) 0.2 {Alan'U}/dL Normal < 2.0 [facility] Comment on above: Performed By: #### U AR #### [facility] [address] [place] [address] Urine Microscopicon 04-19-20 20 Epithelial cells LM Ql (Urine sed) 0-2 Normal [facility] Comment on above: Performed By: #### U ARELY #### [facility] [address] [facility] [place] [place] [address] RBC (U) [#/Vol] 0-2 Normal 0-2 [facility] Comment on above: Performed By: #### U ARELY #### [facility] [address] [place] [address] WBC (U) [#/Vol] 0-2 Normal 0-5 [facility] Comment on above: Performed By: #### U ARELY #### [facility] [address] [facility] [place] [address] CBC Auto Differentialon 10-0 -2020 Basophils (Bld) [#/Vol] 0.1 10*3/uL 0 - 0.2 K/u L [facility], [place] Basophils/100 WBC (Bld) 0.4 % [place] Eosinophils (Bld) [#/Vol] 0.5 10*3/uL 0 - 0.7 K/uL [place] Eosinophils/100 WBC (Bld) 4.2 % [place] Erythrocyte distribution width (RBC) [Ratio] 12.5 % 11.5 - 14.5 % [place] Hematocrit (Bld) [Volume fraction] 39.4 % 37 - 47 % [place] Hemoglobin (Bld) [Mass/Vol] 13.3 g/dL 12 - 16 g/dL [place] Interpretation and review of laboratory results Abnormal [place] Lymphocytes (Bld) [#/Vol] 3.2 10*3/uL 1 - 4.8 K/uL [place] Lymphocytes/100 WBC (Bld) 26.9 % [place] MCH (RBC) [Entitic mass] 29.8 pg 27 - 31.3 pg [place] MCHC (RBC) [Mass/Vol] 33.8 % 33 - 37 % [place] MCV (RBC) [Entitic vol] 88.4 fL 82 - 100 fL [place] Monocytes (Bld) [#/Vol] 0.8 10*3/uL 0.2 - 0.8 K /uL [place] Monocytes/100 WBC (Bld) 6.8 % [place] Neutrophils Absolute 7.3 K/uL High 1.4 - 6.5 K/uL [place] Neutrophils/100 WBC (Bld) 61.7 % [place] Platelets (Bld) [#/Vol] 314 10*3/uL 130 - 400 K /uL [place] RBC (Bld) [#/Vol] 4.45 10*6/uL [place] WBC (Bld) [#/Vol] 11.9 10*3/uL High 4.8 - 10.8 K/uL [place] Comprehensive Metabolic Pane crescencio 04-18-2020 Albumin [Mass/Vol] 4.9 g/dL High 3.5 - 4.6 g/dL [place] ALP [Catalytic activity/Vol] 40 U/L 40 - 130 U/L [place] ALT [Catalytic activity/Vol] 17 U/L 0 - 33 U/L [place] Anion gap [Moles/Vol] 14 mmol/L [place] AST [Catalytic activity/Vol] 17 U/L 0 - 35 U/L [place] Bilirubin Ql (U) <0.2 0.2 - 0.7 mg/dL [place] Calcium [Mass/Vol] 10.0 mg/dL High 8.5 - 9.9 mg/dL [place] Chloride [Moles/Vol] 101 mmol/L [place] CO2 [Moles/Vol] 24 mmol/L [place] Creatinine [Mass/Vol] 0.87 mg/dL 0.5 - 0.9 mg/dL [place] GFR >60.0 >60 [place] Comment on above: >60 mL/min/1.73m2 EG FR, calc. for ages 18 and older using the MDRD formula (not corrected for weight), is valid for stable renal function. GFR Non- >60.0 >60 [place] Comment on above: >60 mL/min/1.73m2 EG FR, calc. for ages 18 and older using the MDRD formula (not corrected for weight), is valid for stable renal function. Globulin (S) [Mass/Vol] 3.1 g/dL 2.3 - 3.5 g/ dL [place] Glucose [Mass/Vol] 94 mg/dL 70 - 99 mg/dL [place] Interpretation and review of laboratory results Abnormal [place] Potassium [Moles/Vol] 3.9 mmol/L [place] Protein [Mass/Vol] 8.0 g/dL 6.3 - 8 g/dL [place] Sodium [Moles/Vol] 139 mmol/L [place] Urea nitrogen [Mass/Vol] 12 mg/dL 6 - 20 mg/dL [place] HCG Qualitative, Serumon hCG Qual Negative [place] Lactic Acid, Plasmaon 2019 Lactate [Moles/Vol] 1.8 mmol/L 0.5 - 2. 2 mmol/L [place] Microscopic Urinalysison Epithelial Cells, UA 0-2 /HPF [place] RBC (U) [#/Vol] 0-2 [place] WBC, UA 0-2 [place] Urine Reflex to Cultureon Bilirubin Urine Negative Negative [place] Blood, Urine Trace-intact Negative [place] Clarity, UA Clear Clear [place] Color, UA Yellow Straw/Yellow [place] Glucose, Ur Negative Negative mg/dL [place] Ketones Ql (U) Negative Negative mg/dL [place] Leukocyte esterase Test strip Ql (U) Negative Negative [place] Nitrite, Urine Negative Negative [place] pH, UA 6.0 [place] Protein (U) [Mass/Vol] Negative Negative mg/d L [place] Specific [place], UA 1.020 [place] Urine Reflex to Culture Not Indicated [place] Urobilinogen, Urine 0.2 <2.0 E.U./dL [place] ECHOCARDIOGRAPHY REPORT (HL) on 05-10-2017 ECHOCARDIOGRAPHY REPORT (HL) [facility] [id number] [id number] VASCULAR LABReferring: Koffi Uriarte A.Reading: CURTIS GARCIA [...] 4 CH 16.1 cm2LA Volume Indexed 21.05 ml/v8Qzyhtjfft/Systoli c FunctionMV E-wave Vmax 0.884 m/secMV deceleration time 193 msecMV A-wave Vmax 0.494 m/secLV septal e' Vmax 0.115 m/secLV lateral e' Vmax 0.189 m/secLV E:e' septal ratio 7.7 ratio [facility] [id number] [place] [address] [id number] 93Jackie Uriarte MDECHOCARDIOGRAPHY REPORTLV E:e' lateral ratio [...] structure. There is no evidence ofpulmonic regurgitation. [facility] [id number] [place] [address] [id number] 93Jackie roper MDECHOCARDIOGRAPHY REPORTPericardium:Ther e is no [...] function.This is a normal echocardiogram.PARAS CHOW05/10/2017 10:26:53 [facility] [id number] [place] [address] [id number] 93Jackie roper MDECHOCARDIOGRAPHY REPORT Normal [facility] BASIC METABOLIC PANELon 10-1 Anion gap 10 mmol/L Normal 6-18 [facility] Comment on above: Order Comment: Is pa tient fasting? YES Performed By: #### L BMP, LGFRP ####[facility] [id number] [place] [address] Calcium 9.6 mg/dL Normal 8.6-10.3 [facility] Comment on above: Order Comment: Is pa tient fasting? YES Performed By: #### L BMP, LGFRP ####[facility] [address] [place] [address] Chloride 101 mmol/L Normal 98-107 [facility] Comment on above: Order Comment: Is pa tient fasting? YES Performed By: #### L BMP, LGFRP ####[facility] [address] [place] [address] CO2 27 mmol/L Normal 21-32 [facility] Comment on above: Order Comment: Is pa tient fasting? YES Performed By: #### L BMP, LGFRP ####[facility] [address] [place] [address] Creatinine 0.74 mg/dL Normal 0.5-1.05 [facility] Comment on above: Order Comment: Is pa tient fasting? YES Performed By: #### L BMP, LGFRP ####[facility] [id number] [place] [address] Glucose mass conc 82 mg/dL Normal 74-99 [facility] Comment on above: Order Comment: Is pa tient fasting? YES Performed By: #### L BMP, LGFRP ####[facility] S[address]asmgtxt[address]37 [place] [address] Potassium molar conc 4.1 mmol/L Normal 3.5-5.3 [facility] Comment on above: Order Comment: Is pa tient fasting? YES Performed By: #### L BMP, LGFRP ####[facility] [address]obgcs[address]33 [place] [address] Sodium 134 mmol/L Low 136-145 [facility] Comment on above: Order Comment: Is pa tient fasting? YES Performed By: #### L BMP, LGFRP ####[facility] [address] [place] [address] Urea nitrogen 14 mg/dL Normal 6-23 [facility] Comment on above: Order Comment: Is pa tient fasting? YES Performed By: #### L BMP, LGFRP ####[facility] [id number] [place], [place] [id number] CBC AUTOon 05-04-2017 Erythrocyte distribution width Auto Ratio (RBC) 12.8 % Normal 11.5-14.5 [facility] Comment on above: Performed By: #### L CBC ####[place] [id number] Erythrocytes (RBC) 4.65 10*6/uL Normal 3.5-5.5 [facility] Comment on above: Performed By: #### L CBC ####[place] [address] Hematocrit (HCT) 41.1 % Normal 36.0-48.0 [facility] Comment on above: Performed By: #### L CBC ####[place] [address] Hemoglobin mass conc (Bld) 13.8 g/dL Normal 12.0-15.0 [facility] Comment on above: Performed By: #### L CBC ####[place] [id number] MCH 29.7 pg Normal 25.4-34.6 [facility] Comment on above: Performed By: #### L CBC ####[place] [id number] MCHC mass conc (RBC) 33.6 g/dL Normal 30.0-36.0 [facility] Comment on above: Performed By: #### L CBC ####[facility] [id number] [place], [place] [id number] MCV 88.4 fL Normal 79.0-98.0 [facility] Comment on above: Performed By: #### L CBC ####[place] [id number] Platelet mean volume (PMV) 9.3 fL Normal 8.4-11.9 [facility] Comment on above: Performed By: #### L CBC ####[place] [id number] Platelets 277 10*3/uL Normal 140-440 [facility] Comment on above: Performed By: #### L CBC ####[facility] [address]af[address]48 [place] [address] WBC (Leukocytes) 6.1 10*3/uL Normal 3.9-11.0 [facility] Comment on above: Performed By: #### L CBC ####[facility] Msosvbjsfa58516 [place] [address] GLOMERULAR FILTRATION RATE E STon 05-04-2017 eGFR (non-black) mL/min/{1.73_m2} Normal > 60 [facility] Comment on above: Order Comment: Is pa tient fasting? YES Performed By: #### L BMP, LGFRP ####[facility] [address]fse[address]wdsg[address]167 [place] [address] IF AMER > 90 Normal > 60 [facility] Comment on above: Order Comment: Is pa tient fasting? YES Result Comment: Effe ctive 12/12/14:CKD-EPI equation / based on IDMS traceable creatinine.Continue to use the CREAT CLR-DOSE ([place]-Gault)value for determining medication dose. Performed By: #### L BMP, LGFRP ####[facility] [id number] [place] [address] Vital Signs Date Time Vital Sign Value Performing Clinician Yael murguia 07-31-2022 10:54-0500 Body height 175.26 cm Koffi Rosas [employer] Work Phone: [employer] Work Phone: 07-31-2022 10:54-0500 Body mass index (BMI) [Ratio] 31.01 kg/m2 Koffi Clementeson Work Phone: [employer] Work Phone: 07-31-2022 10:54-0500 Body surface area Derived from formula 2.11 m2 Koffi Clementeson Work Phone: [employer] Work Phone: 07-31-2022 10:54-0500 Body temperature 97.6 [degF] Koffi Uriarte Work Phone: GA-HNMJ-[place] Work Phone: 07-31-2022 10:54-0500 Body weight 95.26 kg Koffi Uriarte Work Phone: RB-MLNZ-Jnmo [place] Work Phone: 07-31-2022 10:54-0500 Diastolic blood pressure 87 mm[Hg] Koffi Uriarte Work Phone: OE-ESSM-Mbag [place] Work Phone: 07-31-2022 10:54-0500 Heart rate 76 /min Koffi Uriarte Work Phone: UQ-HCIS-Vepv [place] Work Phone: 07-31-2022 10:54-0500 Respiratory rate 18 /min Koffi Uriarte Work Phone: KW-LVPI-Srbl [place] Work Phone: 07-31-2022 10:54-0500 Systolic blood pressure 121 mm[Hg] Koffi Uriarte Work Phone: XI-WYFK-Iasb [place] Work Phone: 12-24-2021 11:32-0400 Body height 175.26 cm Koffi Uriarte Work Phone: GU-Flmzuoeqo-Dazf [place] SJW DO Work Phone: 12-24-2021 11:32-0400 Body mass index (BMI) [Ratio] 31.03 kg/m2 Koffi Uriarte Work Phone: PD-Ponhceebl-Hfxy [place] SJW DO Work Phone: 12-24-2021 11:32-0400 Body surface area Derived from formula 2.11 m2 Koffi Uriarte Work Phone: FM-Sgwvoclso-Zyeh [place] SJW DO Work Phone: 12-24-2021 11:32-0400 Body temperature 97.1 [degF] Koffi Uriarte Work Phone: [facility] DO Work Phone: 12-24-2021 11:32-0400 Body weight 95.3 kg Koffi Uriarte Work Phone: [facility] DO Work Phone: 12-24-2021 11:32-0400 Diastolic blood pressure 76 mm[Hg] Koffi Uriarte Work Phone: [facility] DO Work Phone: 12-24-2021 11:32-0400 Heart rate 54 /min Koffi Uriarte Work Phone: [facility] DO Work Phone: 12-24-2021 11:32-0400 SaO2% (BldA) [Mass fraction] 100 % Koffi Uriarte Work Phone: [facility] DO Work Phone: 12-24-2021 11:32-0400 Systolic blood pressure 114 mm[Hg] Koffi Uriarte Work Phone: [facility] DO Work Phone: 11-17-2021 13:08-0400 Body height 172.72 cm Koffi Uriarte Work Phone: CA-RMQP-HgqhSCI[facility] Work Phone: 11-17-2021 13:08-0400 Body mass index (BMI) [Ratio] 32.39 kg/m2 Koffi Uriarte Work Phone: KD-QVFF-Gfym [place] Work Phone: 11-17-2021 13:08-0400 Body surface area Derived from formula 2.1 m2 Koffi Uriarte Work Phone: EO-YRRZ-Sipl [place] Work Phone: 11-17-2021 13:08-0400 Body temperature 97 [degF] Koffi Uriarte Work Phone: UG-GMBE-Uigu [place] Work Phone: 11-17-2021 13:08-0400 Body weight 96.62 kg Koffi Uriarte Work Phone: DA-SBXO-Yfsm [place] Work Phone: 11-17-2021 13:08-0400 Diastolic blood pressure 84 mm[Hg] Koffi Uriarte Work Phone: HZ-IEJX-Augb [place] Work Phone: 11-17-2021 13:08-0400 Heart rate 70 /min Koffi Uriarte Work Phone: WS-KIXQ-Eril [place] Work Phone: 11-17-2021 13:08-0400 Respiratory rate 18 /min Koffi Uriarte Work Phone: DE-MJYA-Gpmi [place] Work Phone: 11-17-2021 13:08-0400 SaO2% (BldA) [Mass fraction] 96 % Koffi Uriarte Work Phone: YU-FUVY-Iwpp [place] Work Phone: 11-17-2021 13:08-0400 Systolic blood pressure 126 mm[Hg] Koffi Uriarte Work Phone: SU-QRLE-Mxqf [place] Work Phone: 06-25-2021 10:54-0500 Body height 172.72 cm Koffi Uriarte Work Phone: JZ-Yqkwuukfk-Uhad millsap SJ DO Work Phone: 06-25-2021 10:54-0500 Body mass index (BMI) [Ratio] 32.08 kg/m2 Koffi Uriarte Work Phone: [facility] DO Work Phone: 06-25-2021 10:54-0500 Body surface area Derived from formula 2.09 m2 Koffi Uriarte Work Phone: [facility] DO Work Phone: 06-25-2021 10:54-0500 Body temperature 97.1 [degF] Koffi Uriarte Work Phone: [facility] DO Work Phone: 06-25-2021 10:54-0500 Body weight 95.71 kg Koffi Uriarte Work Phone: [facility] DO Work Phone: 06-25-2021 10:54-0500 Diastolic blood pressure 62 mm[Hg] Koffi Uriarte Work Phone: [facility] DO Work Phone: 06-25-2021 10:54-0500 Heart rate 67 /min Koffi Uriarte Work Phone: [facility] DO Work Phone: 06-25-2021 10:54-0500 Respiratory rate 18 /min Koffi Uriarte Work Phone: [facility] DO Work Phone: 06-25-2021 10:54-0500 SaO2% (BldA) [Mass fraction] 99 % Koffi Uriarte Work Phone: [facility] DO Work Phone: 06-25-2021 10:54-0500 Systolic blood pressure 131 mm[Hg] Koffi Uriarte Work Phone: [facility] DO Work Phone: 05-20-2021 15:59-0400 Body height 172.72 cm Koffi Uriarte Work Phone: JZ-UOAD-Inzk [place] Work Phone: 05-20-2021 15:59-0400 Body mass index (BMI) [Ratio] 31.93 kg/m2 Koffi Uriarte Work Phone: HZ-BSQR-Zxtc [place] Work Phone: 05-20-2021 15:59-0400 Body surface area Derived from formula 2.09 m2 Koffi Uriarte Work Phone: LG-YURG-Mtai [place] Work Phone: 05-20-2021 15:59-0400 Body temperature 98.1 [degF] Koffi Uriarte Work Phone: SF-MUYX-Gtvo [place] Work Phone: 05-20-2021 15:59-0400 Body weight 95.26 kg Koffi Uriarte Work Phone: KT-HRZM-Bryi [place] Work Phone: 05-20-2021 15:59-0400 Diastolic blood pressure 82 mm[Hg] Koffi Uriarte Work Phone: BM-NPIC-Frve [place] Work Phone: 05-20-2021 15:59-0400 Heart rate 72 /min Koffi Uriarte Work Phone: XQ-AYVI-Eqcl [place] Work Phone: 05-20-2021 15:59-0400 Respiratory rate 16 /min Koffi Uriarte Work Phone: OY-RQTQ-Zacd [place] Work Phone: 05-20-2021 15:59-0400 Systolic blood pressure 122 mm[Hg] Koffi Uriarte Work Phone: QF-SHHZ-Irop [place] Work Phone: 12-24-2020 14:45-0400 Body height 172.72 cm Koffi Uriarte Work Phone: KE-ZPQV-Irkw [place] Work Phone: 12-24-2020 14:45-0400 Body mass index (BMI) [Ratio] 30.71 kg/m2 Koffi Uriarte Work Phone: PY-YWOZ-Qkrx [place] Work Phone: 12-24-2020 14:45-0400 Body surface area Derived from formula 2.05 m2 Koffi Uriarte Work Phone: CX-XNDJ-Iibl [place] Work Phone: 12-24-2020 14:45-0400 Body temperature 97.8 [degF] Koffi Uriarte Work Phone: BH-MJPI-Vyaa [place] Work Phone: 12-24-2020 14:45-0400 Body weight 91.63 kg Koffi Uriarte Work Phone: QJ-VZSC-Gakc [place] Work Phone: 12-24-2020 12:59-0400 Body height 172.72 cm Koffi Uriarte Work Phone: NC-JJWC-Mppi [place] Work Phone: 12-24-2020 12:59-0400 Body mass index (BMI) [Ratio] 30.71 kg/m2 Koffi Clementeson Work Phone: WK-GNQP-Rils [place] Work Phone: 12-24-2020 12:59-0400 Body surface area Derived from formula 2.05 m2 Koffi Clementeson Work Phone: NQ-XIYG-Krrg [place] Work Phone: 12-24-2020 12:59-0400 Body temperature 98.2 [degF] Koffi Uriarte Work Phone: CB-AFDF-Jlhr [place] Work Phone: 12-24-2020 12:59-0400 Body weight 91.63 kg Koffi Uriarte Work Phone: JP-SJAR-Qxnk [place] Work Phone: 12-24-2020 12:59-0400 Diastolic blood pressure 90 mm[Hg] Koffi Uriarte Work Phone: NX-IUOE-Upcv [place] Work Phone: 12-24-2020 12:59-0400 Heart rate 75 /min Koffi Uriarte Work Phone: DH-IZCJ-Clsn [place] Work Phone: 12-24-2020 12:59-0400 Respiratory rate 16 /min Koffi Uriarte Work Phone: JF-HTZU-Zpyn [place] Work Phone: 12-24-2020 12:59-0400 Systolic blood pressure 147 mm[Hg] Koffi Uriarte Work Phone: NN-ZYTF-Ivmr [place] Work Phone: 08-14-2020 13:26-0500 BMI (Body Mass Index) 29.04 kg/m2 Koffi Uriarte ML-Vnsckhpvi-Kxib [place] SJW DO Work Phone: 08-14-2020 13:26-0500 Body Temperature 97.5 [degF] [facility]offi Uriarte [facility] DO Work Phone: 08-14-2020 13:26-0500 Body weight 86.64 kg Koffi Uriarte [facility] Work Phone: 08-14-2020 13:26-0500 BP Diastolic 100 mm[Hg] Koffi Uriarte [facility] Work Phone: 08-14-2020 13:26-0500 BP Systolic 150 mm[Hg] Koffi Uriarte [facility]- [facility] DO Work Phone: 08-14-2020 13:26-0500 BSA (Body Surface Area) 2 m2 Koffi Uriarte NX-Fukytegjs-Wsfv [place] SJW DO Work Phone: 08-14-2020 13:26-0500 Height 172.72 cm Koffi Uriarte MP-Neurology- [facility] DO Work Phone: 05-28-2020 15:24-0500 BMI (Body Mass Index) 28.59 kg/m2 Koffi Uriarte [facility] Work Phone: 05-28-2020 15:24-0500 Body Temperature 97.6 [degF] Koffi Uriarte QY-EJEI-Qhnn [place] Work Phone: 05-28-2020 15:24-0500 Body weight 85.28 kg Koffi Uriarte ER-KKGN-Jklf [place] Work Phone: 05-28-2020 15:24-0500 BP Diastolic 82 mm[Hg] Koffi Uriarte IZ-JPAF-Fadg [place] Work Phone: 05-28-2020 15:24-0500 BP Systolic 122 mm[Hg] Koffi Uriarte TV-ZRUI-Saxl [place] Work Phone: 05-28-2020 15:24-0500 BSA (Body Surface Area) 1.99 m2 Koffi Uriarte ZH-HPZW-Kadm [place] Work Phone: 05-28-2020 15:24-0500 Height 172.72 cm Koffi Uriarte AT-KHGT-Qetf [place] Work Phone: 05-28-2020 15:24-0500 Pulse (Heart [...] Phone: 04-19-2020 00:00-0400 BP Diastolic 83 mm[Hg] [facility] 04-19-2020 00:00-0400 BP Systolic 144 mm[Hg] [facility] 04-18-2020 22:17-0400 BMI (Body Mass Index) 28.06 kg/m2 [facility] 04-18-2020 22:17-0400 Body Temperature 98.91 [degF] Tu Wright [facility], [place] 04-18-2020 22:17-0400 Body weight 86.18 kg Tu Wright [facility], [place] 04-18-2020 22:17-0400 Height 175.3 cm Tu Wright [facility], [place] 04-18-2020 22:17-0400 Pulse (Heart Rate) 105 /min Tu Barker [facility], [place] 04-18-2020 22:17-0400 Pulse Oximetry 97 % Tu Wright [facility], [place] 04-18-2020 22:17-0400 Respiratory Rate 16 /min Tu [place] Adriana [facility] Encounters Encounter Date Encounter Type Care Provider Facility Start: 07-14-2023 End: 07-14-2023 ambulatory SHIMA RODAS Not Available Start: 06-30-2023 End: 07-01-2023 ambulatory SHIMA RODAS Not Available Start: 06-16-2023 End: 06-16-2023 ambulatory SHIMA CLARK Not Available Start: 06-01-2023 End: 06-01-2023 ambulatory SHIMA CLARK Not Available Start: 04-30-2023 End: 04-30-2023 [facility] Start: 04-30-2023 End: 04-30-2023 Office outpatient visit 15 minutes Nedra Calderon MD Work Phone: [facility] Comment on above: Seizure (CMS/HCC) (P rimary Dx) Start: 11-25-2022 End: 11-26-[address] LISA ZIMMERMAN . Facility:[facility] Start: 11-16-2022 End: 11-17-[address] LISA ZIMMERMAN . Facility:[facility] Start: 07-31-2022 Current tobacco non- user cad cap copd pv dm Koffi Uriarte Work Phone: [employer] Work Phone: Start: 07-31-2022 Periodic preventive med est patient 18-39 yrs Koffi Uriarte Work Phone: [employer] Work Phone: Start: 07-31-[address] Koffi Uriarte Facility:[id number] Start: 04-16-2022 End: 04-17-2022 ambulatory KAVITA SWEET Facility:[facility] Start: 03-24-2022 End: 03-25-2022 ambulatory Dane Hassan [place] Start: 03-24-2022 Telephone encounter Kavita lyons DO Work Phone: OB/Gynecology Comment on above: Bleeding With Pregna ncy Start: 03-24-2022 End: 03-24-2022 Patient encounter procedure Dane Hassan [facility] Start: 03-19-2022 Telephone encounter Georgia Nathan th PLUCK TRIMMER.BISQUE WARE DIPPER Work Phone: CB/Gynecology Comment on above: Appointment Start: 03-18-2022 AUDIT Koffi Carlson [employer] Work Phone: FY-Pkzipsjqc-Yuqvagp e SJW DO Work Phone: Start: 02-03-2022 ambulatory Brendan Blankenship PA-C Work Phone: OB/Gynecology Comment on above: Bacteria Vaginosis Start: 01-02-2022 AUDIT Koffi Rosas Aldo [employer] Work Phone: JI-OILB-Ybqg [place] Work Phone: Start: 12-24-2021 Office outpatient vi sit 15 minutes Koffi Clementeson Work Phone: IC-Ajwdyiwdy-Ftoejob e SJW DO Work Phone: Start: 11-17-2021 Office outpatient vi sit 15 minutes Koffi Clementeson Work Phone: MU-AKKI-Kljv [place] Work Phone: Start: 09-29-2021 AUDIT Koffi Carlson ardson Work Phone: VY-RMOQ-Dbxv [place] Work Phone: Start: 09-09-2021 End: 09-09-2021 ambulatory BRENDAN BLANKENSHIP Facility:[facility] Start: 07-04-2021 End: 07-05-2021 ambulatory GEORGIA DWYER Facility:[facility] Start: 07-04-2021 Encounter for gynecological examination (general) (routine) without abnormal findings GEORGIA DWYER [facility] Start: 06-25-2021 Office outpatient vi sit 25 minutes Koffi Alison Uriarte Work Phone: YL-Jdydoorvs-Fbihmgl e SJW DO Work Phone: Start: 05-22-2021 Chart Update Koffi Carlson ardson Work Phone: RL-ZSDS-Qbtd [place] Work Phone: Start: 05-20-2021 Office outpatient vi sit 25 minutes Koffi Alison Uriarte Work Phone: TX-ZLSG-Gwvq [place] Work Phone: Start: 05-20-2021 Patient encounter procedure Koffi Alison ClementeUriarte Work Phone: VY-AACX-Jcsj [place] Work Phone: Start: 03-28-2021 AUDIT Koffi Carlson ardson Work Phone: XF-IRVX-Nwiz [place] Work Phone: Start: 12-24-2020 Chart Update Koffi Alison Carlson ardson Work Phone: CN-HEOP-Zscc [place] Work Phone: Start: 12-24-2020 Office outpatient vi sit 25 minutes Koffi A Uriarte Work Phone: VA-KYHC-Tabr [place] Work Phone: Start: 08-14-2020 Patient encounter procedure Koffi Clementeson RZ-Hbjnvjlsm-Cillhqc e SJW DO Work Phone: Start: 06-11-2020 Patient encounter procedure Koffi Uriarte MJ-Wvybfnkov-Xkndykr e SJW DO Work Phone: Start: 05-28-2020 Patient encounter procedure Koffi Uriarte MF-TUAJ-Pxoa [place] Work Phone: Start: 05-09-2020 End: 05-12-2020 Patient encounter procedure SPIKE GARCIA [facility] Start: 05-09-2020 End: 05-11-2020 Subsequent hospital visit by physician Madeline Frey 1 EEG Comment on above: 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) Start: 04-25-2020 Patient encounter procedure Koffi Uriarte HS-SWSG-Zxlz [place] Work Phone: Start: 04-19-2020 End: 04-19-2020 Emergency department patient visit [facility] Start: 04-18-2020 End: 04-19-2020 Emergency department patient visit Tu Curran Work Phone: [facility] Comment on above: Seizure (HCC) (Prima ry Dx) Start: 03-02-2019 Patient encounter procedure Koffi Uriarte KB-LQAV-Cofl [place] Work Phone: Start: 05-04-2017 Ambulatory Koffi Uriarte [facility] Patient encounter status Koffi Uriarte Work Phone: MA-OTWA-Zdbl [place] Work Phone: Procedures Date Procedure Procedure [...] Start: 04-18-2020 Urinalysis microscopic only Tu Reece [facility] Work Phone: Start: 04-18-2020 Urnls dip [...] f 2) Zoster Vaccines (1 of 2) [facility] Start: 02-17-2028 DTaP/Tdap/Td Vaccine s (8 - Td or Tdap) DTaP/Tdap/Td Vaccines (8 - Td or Tdap) [facility] Start: 08-02-2023 PHYSICAL, Provider: Koffi Uriarte, Status: Pen, Time: 9:00 AM PHYSICAL, Provider: Koffi Uriarte, Status: Pen, Time: 9:00 AM JO-RTNI-Zgzj [place] Work Phone: Start: 08-02-2023 End: 08-02-2023 Patient encounter procedure 08/02/2023 9:00 AM EST Office Visit [facility] [id number] [id number] [place] [address] [place], [place] [id number] [facility] Start: 07-02-2023 PAP TESTING PAP TESTING [facility] Start: 07-02-2023 Screening for malignant neoplasm of cervix [facility] Start: 12-24-2022 ERIKA, Provider : Nedra Calderon, Status: Pen, Time: 10:00 AM ERIKA, Provider: Nedra Calderon, Status: Pen, Time: 10:00 AM UQ-Jtoaexrio-Dxyemtt e AMANDAW DO Work Phone: Start: 05-22-2022 PHYSICAL, Provider: Koffi Uriarte, Status: Pen, Time: 9:50 AM PHYSICAL, Provider: Koffi Uriarte, Status: Pen, Time: 9:50 AM YJ-LVMT-Jras [place] Work Phone: Start: 03-24-2022 End: 05-24-2022 Choriogonadotropin.bet a subunit [Units/volume] in Serum or Plasma HCG QUANTITATIVE Lab Routine Bleeding in early Expected: 03/24/2022, Expires: 05/24/2022 [facility] Work Phone: Comment on above: Expected: 03/24/2022 , Expires: 05/24/2022 Start: 03-19-2022 Influenza vaccination INFLUENZA (#1) [facility] Start: 12-24-2021 Thyroid stimulating hormone measurement TSH Level [facility] Start: 12-24-2021 FUVGENERAL, Provider : Nedra Calderon, Status: Pen, Time: 11:30 AM FUVGENERAL, Provider: Nedra Calderon, Status: Pen, Time: 11:30 AM CM-Ovufggrpy-Xevrjtj e SJW DO Work Phone: Start: 11-17-2021 FUV, Provider: Koffi Uriarte, Status: Pen, Time: 1:00 PM FUV, Provider: Koffi Uriarte, Status: Pen, Time: 1:00 PM XJ-KHAQ-Bewk [place] Work Phone: Start: 07-01-2021 COVID-19 VACCINE (3 - Booster for Pfizer series) COVID-19 VACCINE (3 - Booster for Pfizer series) [facility] Start: 06-25-2021 FUVGENERAL, Provider : Nedra Calderon, Status: Pen, Time: 2:00 PM FUVGENERAL, Provider: Nedra Calderon, Status: Pen, Time: 2:00 PM SI-LHVD-Xclq [place] Work Phone: Start: 06-25-2021 FUVGENERAL, Provider : Nedra Calderon, Status: Pen, Time: 11:00 AM FUVGENERAL, Provider: Nedra Calderon, Status: Pen, Time: 11:00 AM RX-OOBK-Cwmp [place] Work Phone: Start: 05-20-2021 FUV, Provider: Koffi Uriarte, Status: Pen, Time: 3:40 PM FUV, Provider: Koffi Uriarte, Status: Pen, Time: 3:40 PM QR-PBKJ-Mowy [place] Work Phone: Start: 03-31-2021 FUV, Provider: Koffi Uriarte, Status: Pen, Time: 2:00 PM FUV, Provider: Koffi Uriarte, Status: Pen, Time: 2:00 PM OP-STEU-Muer [place] Work Phone: Start: 03-26-2021 COVID-19 Vaccine (3 - Pfizer series) COVID-19 Vaccine (3 - Pfizer series) [facility] Start: 03-19-2020 Influenza vaccination Flu vaccine (# 1) [place] Start: 03-02-2018 DTaP/Tdap/Td vaccine (7 - Td) DTaP/Tdap/Td vaccine (7 - Td) [place] Start: 03-02-2018 Urine microalbumin profile DTAP,TDAP,TD (7 - Td or Tdap) [facility] Start: 2014 Screening for malignant neoplasm of cervix [facility] Start: 10-02-2011 HEPATITIS C SCREENING HEPATITIS C [facility] Start: 10-02-2011 Hepatitis C screening Hepatitis C [facility] Start: 10-02-2011 HIV SCREENING HIV SCREENING [place] Start: 2008 HIV screening HIV screen [place], [place] Start: 2005 Adult depression screening assessment DEPRESSION SCREENING [facility] Start: 2004 HPV vaccine (1 - 2-dose series) HPV vaccine (1 - 2-dose series) [place] Start: 04-09-1999 Varicella vaccination Varicell a Vaccines (1 of 2 - 2-dose childhood series) [facility] Start: 1994 Varicella vaccine (1 of 2 - 2-dose childhood series) Varicella vaccine (1 of 2 - 2-dose childhood series) [place] Start: 1993 HIV screening HIV Screening [facility] Start: 1993 Lipid panel Lipid Panel [facility] Start: 1993 Yearly Adult Physical Yearly Adult P hysical [facility] End: 04-18-2020 CT Head WO Contrast CT Head WO Contrast Imaging STAT Once for 1 Occurrences starting 04/18/2020 until 04/18/2020 [place] Comment on above: Once for 1 Occurrenc es starting 04/18/2020 until 04/18/2020 CT Head WO Contrast CT Head WO C ontrast Imaging STAT 04/18/2020 11:15 PM EDT [place] End: 04-18-2020 Prolactin Prolactin Lab STAT One Time for 1 Occurrences starting 04/18/2020 until 04/18/2020 [place] Comment on above: One Time for 1 Occur rences starting 04/18/2020 until 04/18/[address] AT 04/18/2020 11:17 PM EDT [place] TD-YUVH-Alfa [employer] Work Phone: [facility] NEGATED: Highlighted row has been ruled out! Planned Goals not documented SW-VCUX-Sltv [place] Work Phone: Immunizations Immunization Date Immunization Notes Care Provider Radha laura 04-21-2022 influenza, injectabl e, quadrivalent, preservative free Koffi A Uriarte Work Phone: LY-SAPZ-Cqgm [place] Work Phone: 04-18-2021 influenza, injectabl e, quadrivalent, preservative free Okffi A Uriarte Work Phone: SG-KKQY-Qjwd [place] Work Phone: 01-29-2021 Pfizer-BioNTech COVID-19 Vacc 30 MCG/0.3ML Intramuscular Suspension Koffi A Uriarte Work Phone: HE-LQMR-Czbk [place] Work Phone: 01-08-2021 Pfizer-BioNTech COVID-19 Vacc 30 MCG/0.3ML Intramuscular Suspension Koffi A Uriarte Work Phone: XN-EOCF-Tqdj [place] Work Phone: 05-09-2019 Influenza, injectabl e, Madin Claudia Canine Kidney, preservative free, quadrivalent Koffi A Uriarte Work Phone: [employer] Work Phone: 04-28-2018 influenza, injectabl e, quadrivalent, contains preservative Koffi Uriarte Work Phone: [employer] Work Phone: 02-16-2018 tetanus toxoid, redu diego diphtheria toxoid, and acellular pertussis vaccine, adsorbed Koffi Rosas Uriarte Work Phone: [employer] Work Phone: 05-06-2017 influenza, injectabl e, quadrivalent, preservative free Koffi Rosas Uriarte Work Phone: [employer] Work Phone: 01-14-2016 pneumococcal polysaccharide vaccine, 23 valent Koffi Alison Scooters Work Phone: HH-RTQJ-Urxi [place] Work Phone: 11-30-2014 tuberculin skin test ; purified protein derivative solution, intradermal [facility] 12-15-2013 tuberculin skin test ; purified protein derivative solution, intradermal [facility] 03-02-2008 tetanus toxoid, redu diego diphtheria toxoid, and acellular pertussis vaccine, adsorbed [facility] 02-25-2007 meningococcal polysaccharide (groups A, C, Y and W-135) diphtheria toxoid conjugate vaccine (MCV4P) [facility] 02-25-2007 Meningococcal, MCV4, unspecified conjugate formulation(groups A, C, Y and W-135) [facility] 03-12-1999 diphtheria, tetanus toxoids and acellular pertussis vaccine [facility] 03-12-1999 diphtheria, tetanus toxoids and acellular pertussis vaccine, unspecified formulation Koffi Uriarte Work Phone: [employer] Work Phone: 03-12-1999 haemophilus influenz ae type b vaccine, HbOC conjugate [facility] 03-12-1999 measles, mumps and rubella virus vaccine [facility] 03-12-1999 poliovirus vaccine, inactivated [facility] 03-12-1999 trivalent poliovirus vaccine, live, oral [place], [place] 01-07-1995 diphtheria, tetanus toxoids and acellular pertussis vaccine [facility] 01-07-1995 diphtheria, tetanus toxoids and acellular pertussis vaccine, unspecified formulation Koffi Uriarte Work Phone: [employer] Work Phone: 10-22-1994 haemophilus influenz ae type b vaccine, conjugate unspecified formulation [place] 10-22-1994 haemophilus influenz ae type b vaccine, PRP-OMP conjugate Koffi A Scooters Work Phone: [employer] Work Phone: 10-22-1994 Hib, unspecified [place] 10-22-1994 measles, mumps and rubella virus vaccine [facility] 10-22-1994 poliovirus vaccine, inactivated [facility] 06-18-1994 hepatitis B vaccine, pediatric or pediatric/adolescent dosage Koffi Uriarte Work Phone: [facility] 06-18-1994 hepatitis B vaccine, unspecified formulation [place], [place] 04-16-1994 diphtheria, tetanus toxoids and acellular pertussis vaccine [facility] 04-16-1994 diphtheria, tetanus toxoids and pertussis vaccine [facility] 04-16-1994 haemophilus influenz ae type b vaccine, conjugate unspecified formulation [place] 04-16-1994 haemophilus influenz ae type b vaccine, HbOC conjugate Brendan Blankenship PA-C Work Phone: [facility] 04-16-1994 haemophilus influenz ae type b vaccine, PRP-OMP conjugate Koffi Alison Uriarte Work Phone: [employer] Work Phone: 04-16-1994 Hib, unspecified [place] 04-16-1994 poliovirus vaccine, inactivated [facility] 04-16-1994 trivalent poliovirus vaccine, live, oral [facility] 02-12-1994 diphtheria, tetanus toxoids and acellular pertussis vaccine [place] 02-12-1994 diphtheria, tetanus toxoids and pertussis vaccine [facility] 02-12-1994 haemophilus influenz ae type b vaccine, conjugate unspecified formulation [facility] 02-12-1994 haemophilus influenz ae type b vaccine, HbOC conjugate Brendan Pattie TYSONC Work Phone: [facility] 02-12-1994 haemophilus influenz ae type b vaccine, PRP-OMP conjugate Koffi Clementeson Work Phone: [employer] Work Phone: 02-12-1994 Hib, unspecified [facility] 02-12-1994 poliovirus vaccine, inactivated [facility] 02-12-1994 trivalent poliovirus vaccine, live, oral [facility] 01-08-1994 hepatitis B vaccine, pediatric or pediatric/adolescent dosage Koffi Uriarte Work Phone: [facility] 01-08-1994 hepatitis B vaccine, unspecified formulation [facility] [place] 1993 diphtheria, tetanus toxoids and acellular pertussis vaccine [facility], [place] 1993 diphtheria, tetanus toxoids and pertussis vaccine [facility] 1993 haemophilus influenz ae type b vaccine, conjugate unspecified formulation [facility], [place] 1993 haemophilus influenz ae type b vaccine, HbOC conjugate Brendan Lilibethpp PA-C Work Phone: [facility] 1993 haemophilus influenz ae type b vaccine, PRP-OMP conjugate Koffi Alison Uriarte Work Phone: [employer] Work Phone: 1993 hepatitis B vaccine, pediatric or pediatric/adolescent dosage Koffi Uriarte Work Phone: [facility] 1993 hepatitis B vaccine, unspecified formulation [facility] , [place] 1993 Hib, unspecified [place], [place] 1993 poliovirus vaccine, inactivated [facility] 1993 trivalent poliovirus vaccine, live, oral [facility] Payers Date Payer Category Payer Unknown 2020 Unknown MMO MMO [employer] [id number] 2020-Present [phone] [address] [place] [address] PPO [id number] 2019 Unknown [id number] 1993 Unknown [id number] 1993 Unknown [id number] 1993 Unknown [id number] 1993 Unknown [id number] 1993 Unknown [id number] 1993 Unknown [id number] 1993 Unknown [id number] 1993 Unknown [id number] 1993 Unknown [id number] 1993 Unknown [id number] 1993 Unknown [id number] 1993 Unknown [id number] 1959 Unknown [id number] Unknown [id number] Social History Date Type Detail Facility Start: 04-18-2020 End: 04-30-2023 Tobacco smoking status NHIS Never smoker [facility] Start: 04-18-2020 End: 04-30-2023 Tobacco use and exposure Never used [place] Start: 04-18-2020 End: 09-09-2021 Alcohol intake Current drinker of alcohol (finding) [place] Start: 09-19-2019 History SDOH Financial 5 [place] Start: 09-19-2019 History SDOH Food Worry 1 [place] Start: 09-19-2019 History SDOH Transport Med 2 [place] Start: 04-18-2020 Alcohol Comment occasionally [facility] [place], [place] Start: 1993 Sex Assigned At Not on file [place] Start: 04-20-2023 End: 04-30-2023 Exposure to SARS-CoV-2 (event) Not sure [place] Never smoker Never smoker JS-FWXH-N[place]dy [place] Work Phone: Tobacco smoking status Never [facility] Sex Assigned At Female [facility] NEGATED: Highlighted row - - VC-GQTT-Dkbs [place] Work Phone: NEGATED: Highlighted rowStart: NINF History of tobacco use Passive smoker [facility] Work Phone: Functional Status Date Assessment Result Facility NEGATED: Highlighted row Functional performance Functional status health issues are not documented Disease BO-KZVO-Onid [place] Work Phone: Mental Status Date Assessment Result Facility NEGATED: Highlighted row Cognitive function [Interpretation] Cognitive status health issues are not documented Disease IK-PJDM-ZifkJames [place] Work Phone: Clinical Notes 08-09-2017 to [...] 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 Patient Active Problem List Diagnosis Abnormal weight [...] 5/5 throughout all four extremities. Coordination Right: Gpmufx-lv-hldl normal.Left: Cqopia-sy-ylsf normal. Physical Exam Eyes: Extraocular Movements: Extraocular [...] in 1 year documented in this encounter [facility] Work Phone: 11-25-2022 Note EXAMINATION: US [...] authenticated by: HAYLIE RIVER Date: 2022-11-25 17:20 [facility] 04-16-2022 Note HNO ID: [id number] Author: Brendan Blankenship PA-C Service: ? 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 I, Brendan Blankenship, have reviewed this information as documented for accuracy and performed all elements of history taking, and edited the record as necessary. ROS: SEE HPI PE: GENERAL: well-appearing, in no acute distress LUNGS: Normal inspiratory effort COLLEGE SCOUTING COORDINATOR: Normal external genitalia, no vaginal bleeding, small [...] Medical Decision Making Level: 3 - Low [facility] 03-24-2022 Miscellaneous Notes VM left w [...] move appt sooner. documented in this encounter [facility] 03-19-2022 Miscellaneous Notes LMP 02/11, +hpt. Assisted w initial OBV. Advised to take vitamin w folic acid. First trimester precautions provided. handbook sent in . documented in this encounter [facility] 02-03-2022 Miscellaneous Notes The following approved medication [...] medication MICHELLE: No documented in this encounter [facility] 09-09-2021 Note HNO ID: [id number] Author: Brendan Blankenship PA-C Service: ? 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 Portions of this record were documented by the Body Shop Supervisor. I, Brendan Blankenship, have reviewed this information as documented for accuracy and performed all elements of history taking, and edited the record as necessary. 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 [...] Medical Decision Making Level: 3 - Low [facility] 07-04-2021 Note HNO ID: [id number] Author: 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 APRN.BISQUE WARE DIPPER Service: ? Author Type: Nurse Practitioner Type: [...] Ectopic0 Multiple0 Live Births0 Comment: Menarche 10 [place] History LMP: 06/07/2021 (Exact Date), Having periods Age at Menarche: Age at First : Age at Menopause: [place] History Comments: Sexual Activity: Yes; Male; same [...] external genitalia normal, normal Bartholin's glands, urethra, [place]'s glands, no vulvar lesions, no cervical lesions, [...] type of detergents for washing undergarments, wiping sivgl-ck-mpaf, sleep in loose shorts without underwear, shower immediately after intercourse/exercise, make sure perineum is gently blotted dry before dressing. Avoid scratching, scented pads/tampons/toilet papers, cranberry juice, bubble baths, and intercourse until symptoms are relieved. NO douching. If you shave, use a new razor at least twice monthly. 5) Follow up one year or sooner as needed 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 APRN.JUSTINE [facility] 08-09-2017 History of Past i llness Narrative Problem Noted Date Resolved Date NO SHOW 08/09/2017 08/09/2017 documented as of this encounter (statuses as of 02/03/2022) [facility] History of Past illness Narrative* Problem Noted Date Resolved Date NO SHOW 08/09/2017 08/09/2017 documented as of this encounter (statuses as of 03/19/2022) [facility] History of Past illness Narrative* Problem Noted Date Resolved Date NO SHOW 08/09/2017 08/09/2017 documented as of this encounter (statuses as of 03/24/2022) [facility] Plan note No data available for this section [facility] Diagnosis Acute vaginitis- Primary Vaginitis and vulvovaginitis, unspecified [facility]* Diagnosis Bleeding in early - Primary Unspecified hemorrhage in early , unspecified as to episode of care documented in this encounter [facility] note* Diagnosis Seizure (CMS/HCC)- Primary Other convulsions documented in this encounter [facility] Work Phone: History of Present illness Narrative* The patient states she has been doing well with her blood pressure control since the last visit. She has no comorbid illnesses. She has no significant interval events. * Symptoms: The patient is currently asymptomatic. * Less anxiety lately. Broke up with her boyfriend. 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 * BP is much improved on lisinopril. * Saw gyne for discharge. * was told she had BV and chlamydia. * took antibiotics, got better for a few weeks and now she is having discharge again and odor. no pelvic pain. [employer] Work Phone: History of Present illness Narrative* The patient states she has been doing well with her blood pressure control since the last visit. She has no comorbid illnesses. She has no significant interval events. * Symptoms: The patient is currently asymptomatic. * Less anxiety lately. Broke up with her boyfriend. * Working in [employer] at the [employer]. * BP is much improved on lisinopril. * Saw gyne for discharge. * was told she had BV and chlamydia. * took antibiotics, got better for a few weeks and now she is having discharge again and odor. no pelvic pain. [employer] Work Phone: Hospital Discharge instructions No data available for this section [facility] No data available for this section [facility] Summary Purpose Family History No Family History [...] FoundDocuments on File Type Date Recorded Patient [employer] ACP-Advance Directive ACP-Power of Electrostatic Painter Documents on File Type Date Recorded Patient [employer] ACP-Advance Directive ACP-Power of Electrostatic Painter Documents on File Type Date Recorded Patient [employer] Advance Directive(s) 11/30/2015 2:19 PM Reason for Referral Status Reason Specialty Diagnoses / Procedures Referre d By Contact Referred To Contact Open Radiology Diagnoses Nonintractable generalized idiopathic epilepsy without status epilepticus (HCC) Procedures MRI BRAIN W WO CONTRAST Spike Garcia MD [address] [address] Assessments Diagnosis Nonintractable generalized idiopathic epilepsy without status epilepticus (HCC) Diagnosis Seizure (HCC) Other convulsions Discharge Instructions * Attachments The following attachments cannot be sent through Care Everywhere. * Seizure (Portuguese) documented in this encounter Additional Source Comments INFORMATION SOURCE (unrecogn ized section and content) DATE CREATED AUTHOR 01/11/2018 [facility] DATE CREATED AUTHOR AUTHOR'S ORGANIZ ATION 04/19/2020 [facility] DATE CREATED AUTHOR AUTHOR'S ORGANIZ ATION 05/11/2020 [facility] DATE CREATED AUTHOR AUTHOR'S ORGANIZ ATION 12/29/2020 [facility] DATE CREATED AUTHOR AUTHOR'S ORGANIZ ATION 04/14/2022 [facility] DATE CREATED AUTHOR AUTHOR'S ORGANIZ ATION 04/20/2022 [facility] DATE CREATED AUTHOR AUTHOR'S ORGANIZ ATION 08/11/2022 [facility] DATE CREATED AUTHOR AUTHOR'S ORGANIZ ATION 11/29/2022 [facility] DATE CREATED AUTHOR AUTHOR'S ORGANIZ ATION 12/27/2022 [facility] ical Center DATE CREATED AUTHOR AUTHOR'S ORGANIZ ATION 05/02/2023 [facility] tals Ambulatory DATE CREATED AUTHOR AUTHOR'S ORGANIZ ATION 07/16/2023 [facility] d[facility] Specialists EPIC Reason for Visit (unrecogniz ed section and content) Status Reason Specialty Diagnoses / Procedures Referre d By Contact Referred To Contact Closed EEG Diagnoses Generalized idiopathic epilepsy and epileptic syndromes, not intractable, without status epilepticus Procedures EEG 16+ CHANNEL TELEMTERY 24HR Spike Garcia MD [address] [facility] [address] [place] [address] Mloz Eeg [address] [place] [address] Status Reason Specialty Diagnoses / Procedures Referre d By Contact Referred To Contact Closed Radiology Diagnoses Generalized idiopathic epilepsy and epileptic syndromes, not intractable, without status epilepticus Procedures MRI-BRAIN WO & W CONTRAST Spike Garcia MD [address] [facility] [address] [place] [address] Mloz Mri [address] [place] [address] Reason Comments Seizures Seizure like activit y [...] or prosecute any alcohol or drug abuse patient.[facility] the event this information is protected by the Federal Confidentiality of Alcohol and Drug Abuse Patient Records regulations: The Federal rules restrict any use of the information to criminally investigate or prosecute any alcohol or drug abuse patient.[facility] the event this information is protected by the Federal Confidentiality of Alcohol and Drug Abuse Patient Records regulations: The Federal rules restrict any use of the information to criminally investigate or prosecute any alcohol or drug abuse patient.[facility] Care Teams (unrecognized sec tion and content) Eradicator Relationship Specialty Start Date End Date Koffi Uriarte MD PCP - General Family Practice 08/17/16 Eradicator Relationship Specialty Start Date End Date Koffi Uriarte MD PCP - General Family Practice 08/17/16 Eradicator Relationship Specialty Start [place] [address] [place] [address] PCP - General 08/14/20 [place] [address] [place] [address] PCP - MMO ACO PCP 02/16/23 FOR [...] BE BASED ON THE PRIMARY CLINICAL RECORDS. [facility] [employer] [facility]. provides no warranty or guarantee of the accuracy or completeness of information in this document.
--- NOTE | 2023-07-24 08:17 | US_ITS ---
[address] [address] Patient Name: PRINCESS CANTU MRN: [facility]:[id number] date: 1995 Sex: F Assigned Patient Location: [facility] Current Patient Location: Accession/Order Number: [id number] Exam Date: 07/24/2023 08:19 Report Date: 07/26/2023 07:09 At the request of: LISA ZIMMERMAN Procedure: US OB BPP w non-stress EXAMINATION: US OB BPP w non-stress HISTORY: Chronic hypertension COMPARISON: No relevant comparison available. TECHNIQUE: Ultrasound biophysical profile was performed in the radiology department. non-reactive stress testing was performed by nursing staff in the birthing center. FINDINGS: BREATHING MOVEMENTS: 2.0 GROSS BODY MOVEMENTS: 2.0 TONE: 2.0 QUALITATIVE AMNIOTIC FLUID VOLUME: 2.0 PRESENTATION: BREECH HEART RATE: 133.0 bpm H.B./min AMNIOTIC FLUID VOLUME: 12.7 cm cm GESTATIONAL AGE: 35 weeks 5 days CONCLUSION: Total biophysical profile score: 8.0 Electronically authenticated by: HAYLIE RIVER Date: 07/26/2023 07:09
[2023-07-24 08:51] VITALS: BP 115/57; PULSE 74
== END 2023-07-24 09:27 | disposition home or self-care (01) ==
LOC: US 07:12 → FBC 08:05
PROVIDERS: Visit Provider Obstetrics & Gynecology
DX: O16.3 Unspecified maternal hypertension, third trimester (principal); Z3A.35 35 weeks gestation of pregnancy
CPT/HCPCS: 76818

== ENCOUNTER 2023-07-28 07:12 | Outpatient (OUT) | payer OTHER, SELFPAY ==
--- OUTSIDE RECORDS SUMMARY | 2023-07-28 07:15 | XMS_ITS | CCD ---
Author Name Unknown Address [address] [place] [address] Organization [facility] Care Team Providers Care Ocular Pathologist Name Role Phone Uriarte, Koffi A Unavailable [...] Primary Care Provider Uriarte, Koffi A Unavailable [phone] Unavailable Unavailable Unavailable Unavailable Unavailable Unavailable Koffi [...] Unavailable ELSIE ., DR GONZALEZ Attending Unavailable BARD, DR HAYLIE Garcia Consulting Unavailable ELSIE ., DR GONZALEZ Consulting Talon Uriarte, Dr. Koffi Rosas Primary Care Dario Uriarte, Dr. Koffi Rosas Attending Dario Uriarte, Dr. Koffi Rosas Referring Koffi Oquendo MD Primary Care Provider Koffi Uriarte MD Unavailable NEDRA CALDERON Attending Unavailable KOFFI URIARTE Primary [facility] Emergency Department Unavailabl SHIMA Joyce Attending Unavailable SHIMA RODAS Attending Unavailable SHIMA RODAS Attending Unavailable SHIMA RODAS Attending Unavailable Allergies Allergy Classification Reported Allergen(s) Allergy Type Date of Onset Reaction(s) Facility (1 source) No Known Medication Allergies; Translations: [No Known Medication Allergies] Propensity to adverse reactions (disorder) [facility] Repository Medications Current Medications Medication Drug [...] # 120 tab(s), Refills(s) 0, Pharmacy: [id number] Start Date: 06/05/19 Status: Ordered ondansetron [...] 10-02-2022 10-02-2022 Episodic Unclassified (1 source) R07.9 19655/8 Onset: 05-04-2017 Unclassified (5 sources) Patient encounter status; Translations: [Encounter for audiology evaluation] NEGATED: Highlighted row has not occurred!Residual codes; unclassified (17 sources) Disease Episodic Results Test Name Value Interpretation Reference Range Facility DHEA SERUMon 11-20-2022 Dehydroepiandrosterone (DHEA) 656 ng/dL Normal 31-701 [facility] Comment on above: Performed By: #### D LAMAR. #### [facility] [address] [place] [address] Dr. Vish Brown ANTI-MULLERIAN HORMONEon Anti-Mullerian Hormone (AMH) 4.47 ng/mL Normal [facility] Comment on above: Result Comment: For assays employing antibodies, the possibility exists for interference by heterophile antibodies in the samples.1 1.Favio Campos Interferences in Immunoassays - still a threat. Clin. Chem. 2000; 46: 8040-4162. This test was developed and its performance characteristics determined by [employer]. It has not been cleared or approved by the Food and Drug Administration. Reference Range: Females 26 - 30y: 1.03 - 11.10 Median 4.20 AMH concentrations of >= 1.06 ng/mL is correlated with a better response to ovarian stimulation, produced more retrievable oocytes and higher odds of live according to Gabi et al. Fertility and Sterility. 2010: 94:2150-6126. The current AMH test method correlates with [...] AMH-secreting ovarian tumor. Performed By: #### L [facility] #### [facility] [address] [place] [address] Dr. Vish Brown DHEA-SULFATEon 11-17-2022 DHEA-Sulfate 449.0 ug/dL Critically high 84.8-378.0 [facility] Comment on above: Performed By: #### L [facility] #### [facility] [address] [place] [address] Dr. Vish Brown ESTRADIOLon 11-17-2022 Estradiol 34.3 pg/mL Normal [facility] Comment on above: Result Comment: Adul t Female: Follicular phase 12.5 - 166.0 Ovulation phase 85.8 - 498.0 Luteal phase 43.8 - 211.0 Postmenopausal <6.0 - 54.7 1st trimester 215.0 - >4300.0 Ele ECLIA methodology Performed By: #### E CHLOE #### [facility] [address] [place] [address] Dr. Vish Brown FSHon 11-17-2022 FSH 6.1 mIU/mL Normal [facility] Comment on above: Result Comment: Adul t Female: Follicular phase 3.5 - 12.5 Ovulation phase 4.7 - 21.5 Luteal phase 1.7 - 7.7 Postmenopausal 25.8 - 134.8 Performed By: #### L [facility] #### [facility] [address] [place] [address] Dr. Vish Brown LUTEINIZING HORMONE (LH)on 0 11-17-2022 LH 4.5 mIU/mL Normal [facility] Comment on above: Result Comment: Adul t Female: Follicular phase 2.4 - 12.6 Ovulation phase 14.0 - 95.6 Luteal phase 1.0 - 11.4 Postmenopausal 7.7 - 58.5 Performed By: #### L SUHAS #### [facility] [address] [place] [address] Dr. Vish Brown PROGESTERONEon 11-17-2022 Progesterone 0.8 ng/mL Normal [facility] Comment on above: Result Comment: Foll icular phase 0.1 - 0.9 Luteal phase 1.8 - 23.9 Ovulation phase 0.1 - 12.0 First trimester 11.0 - 44.3 Second trimester 25.4 - 83.3 Third trimester 58.7 - 214.0 Postmenopausal 0.0 - 0.1 Performed By: #### P TASNEEM #### [facility] [address] [place] [address] Dr. Vish Brown CBC AUTO DIFFon 11-16-2022 BASO # 0.0 103/ul Normal 0.0-0.1 [facility] Comment on above: Performed By: #### L BRUNA #### [facility] [address] [place] [address] Dr. Vish Brown Basophils/100 WBC (Bld) 0.5 % Normal 0.2-2.0 [facility] Comment on above: Performed By: #### L BRUNA #### [facility] [address] [place] [address] Dr. Vish Brown EO # 0.3 103/ul Normal 0.0-0.7 [facility] Comment on above: Performed By: #### L SUHAS #### [facility] [address] [place] [address] Dr. Vish Brown Eosinophils/100 WBC (Bld) 4.0 % Normal 0.9-7.0 [facility] Comment on above: Performed By: #### L BCL #### [facility] [address] [place] [address] Dr. Vish Brown Erythrocyte distribution width (RBC) [Ratio] 12.0 % Normal 11.0-15.0 [facility] Comment on above: Performed By: #### L BCL #### [facility] [address] [place] [address] Dr. Vish Brown Hematocrit (Bld) [Volume fraction] 39.1 % Normal 36.0-48.0 [facility] Comment on above: Performed By: #### L BCL #### [facility] [address] [place] [address] Dr. Vish Brown Hemoglobin (Bld) [Mass/Vol] 13.0 g/dL Normal 12.0-16.0 [facility] Comment on above: Performed By: #### L BCL #### [facility] [address] [place] [address] Dr. Vish Brown IG # 0.02 10e3/ul Normal 0.00-0.03 [facility] Comment on above: Performed By: #### L BCL #### [facility] [address] [place] [address] Dr. Vish Brown IG % 0.3 % Normal 0.0-0.5 [facility] Comment on above: Performed By: #### L BCL #### [facility] [address] [place] [address] Dr. Vish Brown LYMPH # 2.5 103/ul Normal 1.2-3.8 [facility] Comment on above: Performed By: #### L BCL #### [facility] [address] [place] [address] Dr. Vish Brown Lymphocytes/100 WBC (Bld) 32.4 % Normal 20.5-60.0 [facility] Comment on above: Performed By: #### L BCL #### [facility] [address] [place] [address] Dr. Vish Brown MANUAL DIFF REQ NO Normal [facility] Comment on above: Performed By: #### L BRUNA #### [facility] [address] [place] [address] Dr. Vish Brown MCH (RBC) [Entitic mass] 29.9 pg Normal 26.7-34.0 [facility] Comment on above: Performed By: #### L BRUNA #### [facility] [address] [place] [address] Dr. Vish Brown MCHC (RBC) [Mass/Vol] 33.2 g/dL Normal 29.9-35.2 [facility] Comment on above: Performed By: #### L BRUNA #### [facility] [address] [place] [address] Dr. Vish Brown MCV (RBC) [Entitic vol] 89.9 fL Normal 81.0-99.0 [facility] Comment on above: Performed By: #### L BRUNA #### [facility] [address] [place] [address] Dr. Vish Brown MONO # 0.6 103/ul Normal 0.3-0.8 [facility] Comment on above: Performed By: #### L BRUNA #### [facility] [address] [place] [address] Dr. Vish Brown Monocytes/100 WBC (Bld) 7.4 % Normal 1.7-12.0 [facility] Comment on above: Performed By: #### L BRUNA #### [facility] [address] [place] [address] Dr. Vish Brown NEUT # 4.3 103/ul Normal 1.4-6.5 [facility] Comment on above: Performed By: #### L BCL #### [facility] [address] [place] [address] Dr. Vish Brown Neutrophils/100 WBC (Bld) 55.4 % Normal 43.0-75.0 [facility] Comment on above: Performed By: #### L BRUNA #### [facility] [address] [place] [address] Dr. Vish Brown Platelet mean volume (Bld) [Entitic vol] 9.0 fL Critically low 9.5-13.5 [facility] Comment on above: Performed By: #### L BCL[facility] #### [facility] [address] [place] [address] Dr. Vish Brown PLT 277 103/ul Normal 150-450 [facility] Comment on above: Performed By: #### L BCL[facility] #### [facility] [address] [address] [address] Vish Brown RBC 4.35 106/ul Normal 4.20-5.40 [facility] Comment on above: Performed By: #### L BCL[facility] #### [facility] [address] [address] [address] Vish Brown WBC 7.7 103/ul Normal 4.0-11.0 [facility] Comment on above: Performed By: #### L BCLH #### [facility] [address] [address] [address] Vish Brown FREE T4on 11-16-2022 Free T4 [Mass/Vol] 1.08 ng/dL Normal 0.76-1.46 [facility] Comment on above: Performed By: #### F T4 #### [facility] [address] [place] [address] Dr. Vish Brown GLYCOHEMOGLOBIN A1Con 2022 ADA RECOMMENDATION SEE BELOW Normal [facility] Comment on above: Result Comment: ADA RECOMMENDED LIMIT 4.0 - 6.0 ADA THERAPEUTIC TARGET < 7.0 ACTION SUGGESTED > 7.0 Performed By: #### A 1C #### [facility] [address] [place] [address] Dr. Vish Brown Glucose [Mass/Vol] 94 mg/dL Normal [facility] Comment on above: Performed By: #### A 1C #### [facility] [address] [place] [address] Dr. Vish Brown HbA1c (Bld) [Mass fraction] 4.9 % Normal 4.5-6.2 [facility] Comment on above: Performed By: #### A 1C #### [facility] [address] [address] [address] Vish Brown PREG QUANT HCGon 11-16-2022 HCG QUANT <1 Normal [facility] Comment on above: Performed By: #### P REGQNT, TSH #### [facility] [address] [address] [address] Vish Brown HCG RANGE SEE BELOW Normal [facility] Comment on above: Result Comment: 5-50 0.2-1 WEEK 50-500 1-2 WEEKS 100-5,000 2-3 WEEKS 500-10,000 3-4 WEEKS 1,000-50,000 4-5 WEEKS 10,000-100,000 5-6 WEEKS 15,000-200,000 6-8 WEEKS 10,000-100,000 2-3 MONTHS Performed By: #### P REGQNT, TSH #### [facility] [address] [place] [address] Dr. Vish Brown TSHon 11-16-2022 TSH 2.030 uIU/mL Normal 0.358-3.740 [facility] Comment on above: Performed By: #### P REGQNT, TSH #### [facility] [address] [place] [address] Dr. Vish Brown 19-49 Yearson 07-31-2022 19-49 [...] Occasional alcohol (more content not included)... Normal [employer] Tobacco Screening.on 023 Adult depression screening assessment No [facility] Work Phone: Fall risk assessment a) No falls within the last year [facility] Work Phone: Tobacco use status CPHS b) No M [facility] Work Phone: B-HCG SerPl-aCncon 2 HCG.beta subunit Qn m[IU]/mL Normal <5.0 [facility] Comment on above: Order Comment: Speci men Type: BLOOD SPECIMENOrdering Facility: [facility] Address: [address] [place] [address] Result Comment: Soledad kyle Performed By: #### G CCT #### [place] [address] BACTERIAL VAGINOSIS AMPLIFIC ATIONon 04-16-2022 Lactobacillus crispatus+gasseri+jense james + Gardnerella vaginalis + Atopobium vaginae rRNA HUMERA+probe Ql (Vag fld) Negative Normal Negative for bacterial vaginosis [facility] Comment on above: Order Comment: Speci men Type: SWAB Ordering Facility: [facility] Address: [address] [place] [address] Performed By: #### C VTV, BVAMP #### [facility] CLIA [id number] [address] [place] [address] [facility] C. trachomatis+N. gonorrhoea e DNA HUMERA+probe Ql (Unsp spec)on 04-16-2022 C. trachomatis DNA HUMERA+probe Ql (Unsp spec) Negative Normal Negative for Chlamydia trachomatis by amplificaton [facility] Comment on above: Order Comment: Speci men Type: SWAB Ordering Facility: [facility] Address: [address] [place] [address] Performed By: #### C VTV, BVAMP #### [facility] CLIA [id number] [address] [place] [address] [facility] N. gonorrhoeae DNA HUMERA+probe Ql (Unsp spec) Negative Normal Negative for Neisseria gonorrhoeae by amplification [facility] Comment on above: Order Comment: Speci men Type: SWAB Ordering Facility: [facility] Address: [address] [place] [address] Performed By: #### C VTV, BVAMP #### [facility] CLIA [id number] [address] [place] [address] [facility] MITCH / TRICHOMONAS AMPLIF ICATIONon 04-16-2022 MITCH / TRICHOMONAS AMPLIFICATION MITCH SPECIES GROUP RNA: Negative for Mitch species MITCH GLABRATA RNA: Negative for Mitch glabrata TRICH VAG AMPLIFICATION RNA: Negative for Trichomonas vaginalis by amplification Normal [facility] Comment on above: Performed By: #### C VTV, BVAMP #### [facility] CLIA [id number] [address] [place] [address] OF [facility] CNCOon 04-16-2022 CNCO Letter Text Letter Text Normal [facility] CNOVon 04-16-2022 CNOV Office Visit (OBGA ) PRINCESS CANTU ([id number]) 1995 F Date Time Provider Department 04/16/22 8:00 AM [facility] During your visit today, we recorded the [...] History Social History Narrative Single No 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 I, Brendan Blankenship, have reviewed this information as documented for accuracy and performed all elements of history taking, and edited the record as necessary. ROS: SEE HPI PE: GENERAL: well-appearing, in no acute distress LUNGS: Normal inspiratory effort IDENTITY ACCESS MANAGEMENT ARCHITECT: Normal external genitalia, no vaginal bleeding, small [...] Order(s):MITCH / TRICHOMONAS AMPLIFICATION [SQCVTV] Order #: [id number]. #:[id number] BACTERIAL VAGINOSIS AMPLIFICATION [SQBVAMP] Order #: [id number]. #:[id number] GC/CHLAMYDIA DNA DET [SQGCCAMP] Order #: [id number]. #:[id number] SYPHILIS TOTAL W/REFLEX [SQSYPHTX] Order #: [id number] FUTURE HIV 1 2 COMBO(AG/AB),WITH REFLEX TO DIFFERENTIATION [SQHIV12] Order #: [id number] FUTURE HEP C AB IA W/CONF SCRN [MFYMOO3I] Order #: [id number] FUTURE HEP B SURF AG SCRN [SQHBSAG] Order #: [id number] FUTURE Prescriptions as of 04/16/2022 - lamoTRIgine [...] Status:Closed by BRENDAN BLANKENSHIP on 04/16/22 [facility] HBV surface Ab IA Ql (S)on 0 04-16-2022 HBV surface Ag Ql (S) Negative Normal Negative [facility] Comment on above: Order Comment: Speci men Type: BLOOD SPECIMENOrdering Facility: [facility] Address: [address] [place] [address] Performed By: #### G CCT #### [place] [phone] HCV Ab Ser Qlon 04-16-2022 HCV Ab Ql (S) Negative Normal Negative [facility] Comment on above: Order Comment: Speci men Type: BLOOD SPECIMEN Ordering Facility: [facility] Address: [address] [place] [address] Result Comment: The result suggests no evidence of active infection with Hepatitis C virus. Should recent infection be suspected, repeat testing may be considered 4-6 weeks after this draw. Performed By: #### 1 6128-1 #### [facility] CLIA [id number] [address] [place] [address] [place] HIV 1+2 Ab IA Qlon 2 HIV 1 and 2 Ab IA.rapid Nom Normal [facility] Comment on above: Order Comment: Speci men Type: BLOOD SPECIMENOrdering Facility: [facility] Address: [address] [place] [address] Result Comment: Test not indicated. Performed By: #### G CCT #### [place] [phone] HIV 1+2 Ab+HIV1 p24 Ag IA Ql Non-Reactive Normal Nonreactive [facility] Comment on above: Order Comment: Speci men Type: BLOOD SPECIMENOrdering Facility: [facility] Address: [address] [place], [place] [address] Performed By: #### G CCT #### [place] [phone] HIVINT Normal [facility] Comment on above: Order Comment: Speci men Type: BLOOD SPECIMENOrdering Facility: [facility] Address: [address] [place] [address] Result Comment: No e vidence of HIV-1 or HIV-2 infection. Should recent infection be suspected, repeat testing may be considered 2-3 weeks after this draw. [place] Rev. Code 3701.243(E): This information has been [...] diagnoses. Performed By: #### G CCT #### [place] [phone] Reagin and Treponema pallidu m IgG and IgM [Interp]on 04-16-2022 SYPHILIS INTERPRETATION Cannot exclude r ecent Treponemal infection if specimen collected within 7-10 days after appearance of suspect lesions or 2-3 weeks after an exposure. Clinical correlation is required. Normal [facility] Comment on above: Order Comment: Speci men Type: BLOOD SPECIMENOrdering Facility: [facility] Address: [address] [place] [address] Performed By: #### G CCT #### [place] [phone] T. pallidum IgG+IgM IA Ql (S) Non-Reactive Normal Nonreactive [facility] Comment on above: Order Comment: Speci men Type: BLOOD SPECIMENOrdering Facility: [facility] Address: [address] [place] [address] Performed By: #### G CCT #### [place] [phone] Coding Summary.on 03-27-2022 Coding Summary. CD:[id number] Gh 0bWw+PGhlYWQ+UD8VXFMxH 51kmKHeeL2MP6aPSZ5OXIS WZCQASH1GQQ6tgRD7XMcbU 2VybiAv NhszlFYqDO97CVw5UCQ5fM fuPNkjuF2dcBZyA0j6ViGl YJ30rK26SWisDMOvKnL1Qo ZpbjsgbWFy W1kvDtWooKPvVvf+PHRhYm xlIHdpZHRoPScxMDAlJyBz pEbtSA7qVd6vPKXePTNwhA xhcHNlOiBj j0rjBDWrYVqfMN3knJgmM1 AeyNF9GQCcq9w6Ja79wVY+ XHMuZPI1nTvuJNenb519Tw Scp3piXHA0 lIWeWCsjPDY1P38bs2V0MO ZiZWYdABE4iCL1hZ7voQcl keimW5QygVIeZcH1EJR3mI BseR7tlCqn xsynaD1wCwr+E91OXI9PNK YVIP6DXpk5B8BaAmarsOF+ TW06VQDbUS75yXJjvPTrh9 mejYq7UgAp ICUnPJL3qVdrPGurz0NvDN NsE53pvFLeg6J5WOShsWvu gBMyOwOafTT0aX4fWEawku fum8fahkwp Lflrp0uaof57iC25P85rQV uxREZcIED0PVXrBVUogQxv wv2crO5jIi3+TUobc0xsj7 tpcBn7LoUz QJBmqxZefIonGDC9w1EwMk 21J9WufNukj8JoEnb4uc25 fTFfx3I3wYE2KReoMYMdeT 8oJPhwJfW3 TZQoWfPqhG42yBPwBYzfYi 4wtVerlTxgPV4nKPVoxdet KDScoK6jVLRvyQBpaMskTL 4wNTBpbjtm m726FvAeDHR2CLEdcIYhK2 OozQ2oBpNrZGRaVHLrU5Mn cCZqVIaeN264AXqnNxO4TG VgnyHzM7Km FMNmbRzhNdB9m1O1Ix6Qw2 OjgkweJFG0VWrdIQK0PoE3 MuInHxR1P9CtMwk2NVMxmB izRP2uW6Gy QWPmqgfqoxgxzOY1MPJnEX IayV95qEZqSBntGx6ev3Z2 l462WBAjYRRanG31Pq1ceC ogMTBwdCBU iX0kwfymy4nmxjeoJiMrBF MeXUt6TUw6DLYduPrcYiKx RWJ6KyF4TQV2kVTezJ3qaI hwrxoiwK8t Oyc+D06weM3tKZS4VPG7kj lmOQDwqeWrPE19WI16A9Li PjwvdGFibGU+PGRpdiBzdH ueGL5oMfGi g7ayt1TsIJlbH7AuCWLvDJ qlCqs7CQHzQKS0iPJ2dG4g TJOxXYuad2A5tEY0I1Oxvs Xxiu0yy8bf WJXgBNnvX25fnZCiw7V5MI IncMC4MKAjcMhhCmXgpG96 Oyc+RMZiuHjhz8HpCurdx4 gfr5itfZz7 QmXsXKHyfbTynLhfAIK9j7 RgQz49S85lKHtaAENpGYQd VYOxYBDtsAidnf6ubT7vHy 8+PGNvbCB3 lOL2hO7aFZTuLgZ1AWrcU0 23ZtNsmBDlUxoja6zgd3hl nGv4UuNcXYGryyAtnQxzWX Y2z3BuWr71 U62jXApkTEKaBMQvIOZeWB SpeEhrib0opX5mIr0+PC9j i2pxmp64iF44bKA+PHRkIH F2pFwrJQeg KFJyyZ2lSSvrSvG7YSLcMe YjyF31iLAnMMzuMi8opTqd qWglJQ4pSOBdslvlw072Rs Bdv6qzDSNx qTJpCIthUGB6P97kw5P4NV MeIUYsODO8cFU2oT5zmCoq bjogbGVmdDsgdmVydGljYW nqEWleL424 IHRvcDsnPlBhdGllbnQgTm DuPMt9Q8YzXvs5TCVnxNlq IG3qjHSdBPbgRs1ruTmmsI ztXW6xQKEg pwhgy524VbAoe9miJGLdrM KpCQnjZSV4P60ka5J1FVTc JSZpXBP8qFU9yN3ilFkclg ogbGVmdDsg jpYyuCobKUhwZFgsN645KM RvcDsnPkJpcnRoIERhdGU6 JN24HW40jMZem2Q1xER5R3 BhZGRpbmct yuuseAE4CKEgIXWsjI61Eq 6pqCsqKn9sZZIoXBK6HDFv tMQiJ2WaiX7eTuQhNVTyWX ZyI5DkvBUl YOdmE103AMokQhF8GURtzc RvC3VoRFZfbDbrYpE5r2L2 Zi7FS7S6QG85DM95dXAuf0 J9vAX0Z4Zq WEJqgbegxwdavRG8SALkSL SgyX30Kn4srKizBu1dSWZc HRP2KBAguEOqC1GoiA7uTx AjMDAwMDAw M8DhiNDhPBwcN148EFhuWe R3ETIstzZoZ9HyKVCraPkw JqN9j0V3Oj5TJAx1OI50XI 22fNAfx1C9 rFW0W1EnRJPluwiqvhqnsM C5TZOyUPXpmQ37Jy7daAqe Ex3oEIRqPZU5SEGaoTWoC1 ZemY4vVuVp WISqSJKrE6CzpKXgNQlrJ4 77ORugKcZ0KHDfjxBzH9Tm LAQuaYlyDvY9e2I8Aw9BCB LpPJ37XOY7 uCJ4PX77KD89R8VwMshrkU FibGU+PHRhYmxlIHdpZHRo JBtzTIGbAcTmmHjzUR4wZh 9yZGVyLWNv aQplvRUsUxEln1wdDMPsAY xeTU1grSylA9JpeJX9ZEAv d3h6Pf09V05eX1LwhIG+PG CylRX2pHS9 pE4oOnUsNcG6KVfjI957Wa KujOUkEkzdr8jej3lcmIv5 MzK4GFRdxrLxdXllZCQ1g0 HqEu73E76y IHdpZHRoPSIxNSUiIHZhbG rrym2lpU2yRm7+PGNvbCB3 bGB5nI2vArTwFcC3DZplV6 49InRvcCIv Hakak9shz3wlqYw5PwKcGF UtrcTbgDgeYRX5b9YxLo26 A2CyfBhei8RyZew2ty87vC Hwc1G2jFP8 Z6QgOMRuewwzoWNucEomCT 8yMJDysbmlDCUlhM2aBYGs Y3p1GfZlLtB4RFnnD5Kdfy Y8FNDypQRh LYrrEJR4Q07li7Z3TQSwLR OnNAY3aBF7kX2vcGglqebr bGVmdDsgdmVydGljYWwtYW hvI577EHOu iHdsBVSynF2jKRJgjDXuyJ iiDQ4lZURdsdsmWrAZG5go LC8AC7OCRUW8X7NjFbs4DL DyqLffWB9v jJZhSKgjFf6fzKzviQmmQI 2bAZNoaucpBQCwhY5qGFFi fRYcsPltXJ0hJKRfqftgy9 29AkQvMSZ7 MOVcyCIpV5IigR0aQfCqTQ QcEPPxI5JjvQNcECprF543 LOnbGyZ9AFXidrAjZ6OdLE FsaWduOiB0 h8Y6Fz6qVe9nYi3tUIn0MU 28EN94hIZqc3B8nWT5M6Hb XUGmolkntldnlXA5ZDSdSQ BlnN04hXTh SAkwCm0st6Y7a386LJItMS ZlkA01Yr4lpBneBWYprZLY aJ6huewcl1lwbpoqYlEpHK NxJVx5FFh5 HXEwaGfaWgLsOCT8YlE0XP G8gZLnhB0woFogqdlsuD6w Oyc+UdmnGJHqxsP5E1LqEq k1ENYawEbk ZF0whHXdCXwfPa5lhYmfhE toKV9qSHXwcvwcUWHywH4a GGVjmVRtoPvnZK8qNWRiov fxd571MnZd LDE7BPTomOMlY0HnaX5mKc JwQRVnFTTiD8UakPYpMRfg D405YDqwXyL7IJKjfzJcO3 FsLWFsaWdu FgK4g1I2Gx9TOQ6ixDG3X7 EgArt0BJXbfGhmIX1wrIWu FQsoBu3ytCicsZpaYW4sAG BpbjtwYWRk zJ7dCSXamSMmkIiuFT4iMW Rmdteff314YeYlAFR5IZWs oCFjC3UpwS3aHrMgPQWwLC YlA2IlnEAw XQfxY388HZkkGsT3YJIkda UmL5UnXVCccAlmXfI2q6Y0 Hg2WwMXwGATdXS89BA13QU 17Q0RzZkqs dGFibGU+PHRhYmxlIHdpZH HsKKzwDHYoLoLzdNhrMH1h Ar7tKOAoGNWemLnsqZCdUx Nrh3bbAIPy RGwfUL8azDrlV5XyqSV7QV Igx6h8Ws30Z49sD8RalER+ KRPyePV8mMN5kS8sRuVlIa C5ZUmzC006 HgIlcCAcXycel0okm4mybX o4SaIeWPQlwxYpwScqRIW9 m6MvSr40L85zZVqoSUPlBD IyMCUiIHZh cWrwrf7beU7vGf7+PGNvbC B1pFK1tA6tVuKcPjR4JCof E693XyNzzGZgYsxyN05tA6 JvdXA+PHRy Kty4KOTomOxeLG7qbDYqRR lfQi0rFJA4KiUsRrFuMAcj Q4PeYYHwqprjyoojkWR5JB WbDBDwqF53 Gv0qbWbjTy9iTTRdYEV7UK UvmUNyU6FafK7iTpDnYCDf AXBhL4IvfWJeOFauZ142ET jhNkS9MGZn bbFlT8HrDYEjpXfhZeM6f4 D2Ze1XdLnftGLbGR8aXmUe HLy5A7KcGiw4NZPvqOroQO 0ncGFkZGlu Wa4zaXvdkOejGY0tGNUoat xsy830YvJmg1loHUWqyZVi UPwnXGS3F90pu5Z8WLPfBY YlVHA3cBE9 tM0wvPjaxejumXCpsKsrck AgeAiwBTfjHJulD125XXTc bCjdSnZTWot6N2AhJqi1NK RxyPvyQH5o wBCqCDosYg0mqTzhxJyjZO 0hKOTsgoems228InGao1vz MCOtpDSgCRqiYDR8E15kv1 X0TXSeWABw WPF3uRL7mA7kdNkudygliN VmdDsgdmVydGljYWwtYWxp V313OZWpbCcrXp2XAuw2A7 MfJpk9AIBh pOwoVW2owJWrXVfcMr1ngR qkeTvbHE8nNKUipmfdx106 GpWnb2ddZIScaPVkWJgaYE V0I56jf3W6 HZOmEAGiGEE7jPQ8mC3xoS lnbjogbGVmdDsgdmVydGlj MSmeWJjqU887TVErhVznDp BheWVyOjwv dGQ+SD01fv50W7AuUfjqAl p7GXBaHCJ3iUQ4tC0hVGJc WAjvh2Q3xYL9I1JfxxBfbr 1rl3ovENZb ZTog (more content not included)... Normal [facility] BhCG Quanton 03-24-2022 HCG.beta subunit Qn 1 m[IU]/mL Normal 1-3 [facility] Comment on above: Result Comment: GEST ATIONAL AGE HCG RANGE (mIU/mL) NON- <1-3 0.2-1 WEEKS 5-50 1-2 WEEKS 50-500 2-3 WEEKS 100-5,000 3-4 WEEKS 500-10,000 4-5 WEEKS 1,000-50,000 5-6 WEEKS 10,000-100,000 6-8 WEEKS 15,000-200,000 8-12 WEEKS 10,000-100,000 Performed By: #### 2 [id number] #### [facility] [address] [place] [address] CHEMISTRYOrdered By: SYSTEM SYSTEM on 03-24-2022 HCG.beta subunit Qn 1 m[IU]/mL Normal 1 - 3 mIU/mL FTM C Remisol CNPDebora 03-24-2022 [facility] Telephone ([facility]) PRINCESS CANTU ([id number]) 1995 F Date Time Provider Department 03/24/22 KAVITA SWEET [facility] During your visit today, we recorded [...] Fully Assessed Reason for Visit: Bleeding With [44190] Primary Visit Diagnosis:Bleeding in early [O20.9] Order(s):HCG QUANTITATIVE [SQHCGQT] Order #: [id number] FUTURE Prescriptions as of 03/24/2022 - metroNIDAZOLE [...] Status:Closed by BRENDAN SOUZA on 03/24/22 Normal [facility] Consent for Treatmenton Consent for Treatment [id number] 0CD:127 [facility] Physician Orderon 03-24-2022 Physician Order [id number] 0CD:127 [facility] CNPNon 03-19-2022 CNPN Telephone ([facility]) ALONDRAANNABELN Alison ([id number]) 1995 F Date Time Provider Department 03/19/22 GEORGIA DWYER [facility] During your visit today, we [...] Status:Closed by MARY ONOFRE on 03/19/22 Normal [facility] Office Visit (Neuro-General) on 12-24-2021 Follow-up [...] or bowel/bladder incontinence. She was taken to [facility] in [place]. She had lab work and a CT [...] DAILY. Vitals Vital Signs Recorded: 24Dec2021 11:32AM Ugjwkxnopcm77.1 F Heart Rate54 Isziawmo477 Ikcncdfja44 Height5 ft 9 in Dtvbfz922 lb 1.6 oz BMI Tgmoujcqpk27.03 kg/m2 BSA Calculated2.11 Tobacco Useb) No Fall Screeninga) No falls within the last year O2 Jtmyngovoz352, RA Physical Exam Constitutional: General appearance: no [...] Nov 17 2021 1:34PM EST (Author) Normal [employer] Tobacco Screening.on 022 Adult depression screening assessment No [facility] [employer] Phone: Fall risk assessment a) No falls within the last year [facility] [employer] Phone: Tobacco use status CPHS b) No M P[facility] [employer] Phone: Bact Vag Amplificationon Bact Vag Amplification Positive Criticall y abnormal Negative for bacterial vaginosis [facility] Comment on above: Performed By: #### G CCT #### 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 Portions of this record were documented by the Hand Deicer Element Winder. I, Brendan Blankenship, have reviewed this information as documented for accuracy and performed all elements of history taking, and edited the record as necessary. ROS: SEE HPI PE: GENERAL: well-appearing, in no acute distress LUNGS: Normal inspiratory effort IDENTITY ACCESS MANAGEMENT ARCHITECT: Small amount yellow mucus discharge, cervix NL. [...] Order(s):MITCH / TRICHOMONAS AMPLIFICATION [SQCVTV] Order #: [id number] BACTERIAL VAGINOSIS AMPLIFICATION [SQBVAMP] Order #: [id number] GC/CHLAMYDIA DNA DET [SQGCCAMP] Order #: [id number] metroNIDAZOLE (FLAGYL) 500 mg tabletTake 1 tablet [...] Encounter Status:Closed (more content not included)... Normal [facility] Mitch Trich Amplon 022 Imtch glabrata RNA Negative Normal Negative [facility] Comment on above: Performed By: #### G CCT #### [place] [address] [place] [phone] Mitch sp group RNA Negative Normal Negative [facility] Comment on above: Performed By: #### G CCT #### [place] [address] [place] [phone] Trichomonas RNA Negative Normal [facility] Comment on above: Performed By: #### G CCT #### [place] [address] [place] [phone] GC/Chlamydia Amplifon 2021 Chlamydia Amplif Negative Normal [facility] Comment on above: Performed By: #### G CCT #### [place] [phone] GC Amplification Negative Normal [facility] Comment on above: Performed By: #### G CCT #### [place] [phone] GC/Chlam Amp Source Cervix Normal [facility] Comment on above: Performed By: #### G CCT #### [place] [phone] Bact Vag Amplificationon Bact Vag Amplification Negative Normal Negat ko for bacterial vaginosis [facility] Comment on above: Performed By: #### C VTV, BVAMP #### [facility] CLIA [id number] [address] [place] [address] [place] [facility] CNOVon 07-04-2021 CNOV [facility] PRINCESS CANTU ([id number]) 1995 F [facility] Date Time Provider Department 07/04/21 4:00 PM GEORGIA DWYER [facility] During your visit today, we recorded the following information about you: Pulse Blood pressure Weight Height 74/minute 131/86 95.7 kg 1.727 m Last Period 06/07/21 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 07/04/2021 4:39 PM Signed Princess is a [...] Ectopic0 Multiple0 Live Births0 Comment: Menarche 10 Rn Iv Therapy History LMP: 06/07/2021 (Exact Date), Having periods Age at Menarche: Age at First : Age at Menopause: Rn Iv Therapy History Comments: Sexual Activity: Yes; Male; same [...] external genitalia normal, normal Bartholin's glands, urethra, [place]'s glands, no vulvar lesions, no cervical lesions, [...] type of detergents for washing undergarments, wiping zwtkt-qk-oozz, sleep in loose shorts without underwear, shower [...] health screening schedule is recommended by the [employer] (ACOG). Some of these tests may be ordered or performed by your primary care doctor. Pap test screening The pap test loo (more content not included)... Normal [facility] Mitch Trich Amplon 021 Mitch glabrata RNA Negative Normal Negative [facility] Comment on above: Performed By: #### C VTV, BVAMP #### [facility] CLIA [id number] [address] [place] [address] [place] Mitch sp group RNA Negative Normal Negative [facility] Comment on above: Performed By: #### C VTV, BVAMP #### [facility] CLIA [id number] [address] [place] [address] [place] Trichomonas RNA Negative Normal [facility] Comment on above: Performed By: #### C VTV, BVAMP #### [facility] CLIA [id number] [address] [place] [address] [place] GC/Chlamydia Amplifon 2020 Chlamydia Amplif Negative Normal [facility] Comment on above: Performed By: #### G CCT #### [place] [address] [place] [address] GC Amplification Negative Normal [facility] Comment on above: Performed By: #### G CCT #### [place] [address] GC/Chlam Amp Source Cervix Normal [facility] Comment on above: Performed By: #### G CCT #### [place] [phone] Tobacco Screening.on 021 Fall risk assessment a) [...] trachomatis and Neisseria gonorrhoeae testing on specific kbq-THX-ftwejyda sample types (female urine samples) have been validated by [facility]. This laboratory is certified by CLIA [...] trachomatis and Neisseria gonorrhoeae testing on specific rxe-EZR-oppfvyos sample types (female urine samples) have been validated by [facility]. This laboratory is certified by CLIA to perform high complexity testing. Samples from all other sites are not validated for this method. TSHon 12-24-2020 TSH Qn 2.30 m[IU]/L Normal 0.44 - 3.98 [facility] Comment on above: Result Comment: TSH testing is performed using different testing methodology at [facility] than at other [facility]. Direct result comparisons should only be made within the same method. Performed By: #### T SH2 #### [facility] [id number] [place] [address] TSH - Thyroid Stimulating Ho ti, Serumon 12-24-2020 TSH Qn 2.30 m[IU]/L See Below [employer] Phone: Comment on above: Reference Range: 0.4 4 - 3.98 TSH testing is performed using different testing methodology at [facility] than at other [facility]. Direct result comparisons should only be made within the same method. Tobacco Screening.on 021 Fall risk assessment a) No falls within the last year [employer] Phone: Tobacco use status CPHS b) No M [employer] Phone: CBCon 08-14-2020 Erythrocyte distribution width (RBC) [Ratio] 13.2 % Normal 11.5 - 14.5 [facility] Comment on above: Performed By: #### C BC #### [address] [address] Hematocrit (Bld) [Volume fraction] 39.5 % Normal 36.0 - 46.0 [facility] Comment on above: Performed By: #### C BC #### [address] [address] Hemoglobin (Bld) [Mass/Vol] 13.0 g/dL Normal 12.0 - 16.0 [facility] Comment on above: Performed By: #### C BC #### [address] [address] MCHC (RBC) [Mass/Vol] 32.9 g/dL Normal 32.0 - 36.0 [facility] Comment on above: Performed By: #### C BC #### [address] [address] MCV (RBC) [Entitic vol] 91 fL Normal 80 - 100 [facility] Comment on above: Performed By: #### C BC #### [address] [address] NUCLEATED RBC 0.0 /100 WBC Normal 0.0 - 0.0 [facility] Comment on above: Performed By: #### C BC #### [address] [address] Platelets (Bld) [#/Vol] 235 10*3/uL Normal 150 - 450 [facility] Comment on above: Performed By: #### C BC #### [address] [address] RBC 4.33 x10E12/L Normal 4.00 - 5.20 [facility] Comment on above: Performed By: #### C BC #### [address] [address] WBC (Bld) [#/Vol] 5.8 10*3/uL Normal 4.4 - 11.3 [facility] Comment on above: Performed By: #### C BC #### [address] [address] COMPREHENSIVE PANELon 2020 Albumin [Mass/Vol] 4.7 g/dL Normal 3.4 - 5.0 [facility] Comment on above: Performed By: #### C MP #### [address] [address] ALP [Catalytic activity/Vol] 53 U/L Normal 33 - 110 [facility] [place] [facility] Comment on above: Performed By: #### C MP #### [address] [address] ALT [Catalytic activity/Vol] 41 U/L Normal 7 - 45 [facility] Comment on above: Result Comment: Desiree ents treated with Sulfasalazine may generate falsely decreased results for ALT. Performed By: #### C MP #### [address] [address] Anion gap [Moles/Vol] 10 mmol/L Normal 10 - 20 [facility] Comment on above: Performed By: #### C MP #### [address] [address] AST [Catalytic activity/Vol] 27 U/L Normal 9 - 39 [facility] Comment on above: Performed By: #### C MP #### [address] [place] [address] Bilirubin [Mass/Vol] 0.6 mg/dL Normal 0.0 - 1.2 [facility] [place] [facility] Comment on above: Performed By: #### C MP #### [address] [place] [address] Calcium [Mass/Vol] 9.5 mg/dL Normal 8.6 - 10.3 [facility] Comment on above: Performed By: #### C MP #### [address] [address] Chloride [Moles/Vol] 105 mmol/L Normal 98 - 107 [facility] [place] Comment on above: Performed By: #### C MP #### [address] [address] Creatinine [Mass/Vol] 0.93 mg/dL Normal 0.50 - 1.05 [facility] Comment on above: Performed By: #### C MP #### [address] [address] GFR- AM. >60 Normal >60 [facility] [place] Comment on above: Result Comment: CALC ULATIONS OF ESTIMATED GFR ARE PERFORMED USING THE MDRD STUDY EQUATION FOR THE IDMS-TRACEABLE CREATININE METHODS. CLIN CHEM 2007;53:766-72 Performed By: #### C MP #### [address] [address] GFR-NON AM. >60 Normal >60 [facility] Comment on above: Performed By: #### C MP #### [address] [address] Glucose [Mass/Vol] 94 mg/dL Normal 74 - 99 [facility] Comment on above: Performed By: #### C MP #### [address] [address] HCO3 (Bld) [Moles/Vol] 28 mmol/L Normal 21 - 32 [facility] Comment on above: Performed By: #### C MP #### [address] [place] [address] Potassium [Moles/Vol] 4.4 mmol/L Normal 3.5 - 5.3 [facility] Comment on above: Performed By: #### C MP #### [address] [place] [address] Protein [Mass/Vol] 7.3 g/dL Normal 6.4 - 8.2 [facility] Comment on above: Performed By: #### C MP #### [address] [place] [address] Sodium [Moles/Vol] 139 mmol/L Normal 136 - 145 [facility] Comment on above: Performed By: #### C MP #### [address] [place] [address] Urea nitrogen [Mass/Vol] 13 mg/dL Normal 6 - 23 [facility] Comment on above: Performed By: #### C MP #### [address] [place] [address] Hematologyon 08-14-2020 Hematocrit (Bld) [Volume fraction] 39.5 % See Below -Neurolog -[facility] [place] DO Work Phone: Comment on above: Reference Range: 36. 0 - 46.0 Hemoglobin (Bld) [Mass/Vol] 13.0 g/dL See Below -Neurolog -[facility] [facility] DO Work Phone: Comment on above: Reference Range: 12. 0 - 16.0 MCV (RBC) [Entitic vol] 91 fL 80 - 100 M P-Neurolog -[place] [facility] DO Work Phone: Platelets (Bld) [#/Vol] 235 {x10E9/L} 150 - 450 -Neurolog y-[place] [facility] DO Work Phone: RBC (Bld) [#/Vol] 4.33 {x10E12/L} See Below [facility] Work Phone: Comment on above: Reference Range: 4.0 0 - 5.20 WBC (Bld) [#/Vol] 5.8 {x10E9/L} 4.4 - 11.3 MP-N eurolog y-[place] [facility] DO Work Phone: WBC (Bld) [#/Vol] 0.0 {/100_WBC} 0.0 - 0.0 MP- Neurolog y-[place] DO Work Phone: LAMOTRIGINE- LAMICTALon 07-20 LAMOTRIGINE- LAMICTAL 6.4 ug/mL Normal 2.5 - 15.0 [facility] Comment on above: Performed By: #### L AMOT #### [facility] [address] [address] Lamotrigine Level, Serumon 0 08-14-2020 Lamotrigine [Mass/Vol] 6.4 ug/mL 2.5 - 15.0 MP -Neurolog y-[facility] DO Work Phone: Metabolic Panelon 08-14-2020 ALP [Catalytic activity/Vol] 53 U/L 33 - 110 MP-Neurolog y-[place] [facility] DO Work Phone: Anion gap [Moles/Vol] 10 mmol/L 10 - 20 MP- Neurolog y-[place] [facility] DO Work Phone: Bilirubin [Mass/Vol] 0.6 mg/dL 0.0 - 1.2 MP-N eurolog y-[facility] [facility] DO Work Phone: Calcium [Mass/Vol] 9.5 mg/dL 8.6 - 10.3 MP-Jozef rolog y-[place] [facility] DO Work Phone: Chloride [Moles/Vol] 105 mmol/L 98 - 107 MP-N eurolog y-[place] [facility] DO Work Phone: CO2 [Moles/Vol] 28 mmol/L 21 - 32 MP-Neurol og y-[place] [facility] DO Work Phone: Creatinine [Mass/Vol] 0.93 mg/dL See Below - [facility] [place] DO Work Phone: Comment on above: Reference Range: 0.5 0 - 1.05 Glucose [Mass/Vol] 94 mg/dL 74 - 99 -[facility] DO Work Phone: Potassium [Moles/Vol] 4.4 mmol/L 3.5 - 5.3 - [facility] DO Work Phone: Protein [Mass/Vol] 7.3 g/dL 6.4 - 8.2 -[facility] DO Work Phone: Sodium [Moles/Vol] 139 mmol/L 136 - 145 -[facility] DO Work Phone: Urea nitrogen [Mass/Vol] 13 mg/dL 6 - 23 -[facility] DO Work Phone: Otheron 08-14-2020 Albumin BCP dye [Mass/Vol] 4.7 g/dL 3.4 - 5.0 -[facility] DO Work Phone: ALT With P-5'-P [Catalytic activity/Vol] 41 U/L 7 - 45 [facility] DO Work Phone: Comment on above: Patients treated wit h Sulfasalazine may generate falsely decreased results for ALT. AST With P-5'-P [Catalytic activity/Vol] 27 U/L 9 - 39 -[facility] DO Work Phone: Erythrocyte distribution width (RBC) [Ratio] 13.2 % See Below [facility] DO Work Phone: Comment on above: Reference Range: 11. 5 - 14.5 MCHC (RBC) [Mass/Vol] 32.9 g/dL See Below [facility] DO Work Phone: Comment [...] areas of abnormal enhancement after contrast administration. [facility] [place] EXAM[facility]ATION: MRI BRA IN W WO CONTRAST [...] The calvarium and soft tissues are unremarkable. [facility] [place] Judah, Chpo Incoming Radiant Results From [employer] - 05/09/2020 3:02 PM EDT EXAMINATION: MRI [...] areas of abnormal enhancement after contrast administration. [place], [place] MRI BRAIN W WO CONTRAST EXAMINATION: [...] abnormal enhancement after contrast administration. Interpreted by: Davdi Winter MD Signed by: David Winter MD 05/09/20 Final result Normal [facility] CBC With Platelet and Differ entialon 04-19-2020 Basophils (Bld) [#/Vol] 0.1 10*3/uL Normal 0.0-0.2 [facility] Comment on above: Performed By: #### C BCWD #### [facility] [address] [place] [address] Basophils/100 WBC (Bld) 0.4 % Normal [facility] Comment on above: Performed By: #### C BCWD #### [facility] [address] [place] [address] Eosinophils (Bld) [#/Vol] 0.5 10*3/uL Normal 0.0-0.7 [facility] Comment on above: Performed By: #### C BCWD #### [facility] [address] [place] [address] Eosinophils/100 WBC (Bld) 4.2 % Normal [facility] Comment on above: Performed By: #### C BCWD #### [facility] [address] [place] [address] Erythrocyte distribution width (RBC) [Ratio] 12.5 % Normal 11.5-14.5 [facility] Comment on above: Performed By: #### C BCWD #### [facility] [address] [place] [address] Hematocrit (Bld) [Volume fraction] 39.4 % Normal 37.0-47.0 [facility] Comment on above: Performed By: #### C BCWD #### [facility] [address] [place] [address] Hemoglobin (Bld) [Mass/Vol] 13.3 g/dL Normal 12.0-16.0 [facility] Comment on above: Performed By: #### C BCWD #### [facility] [address] [place] [address] Lymphocytes (Bld) [#/Vol] 3.2 10*3/uL Normal 1.0-4.8 [facility] Comment on above: Performed By: #### C BCWD #### [facility] [address] [place] [address] Lymphocytes/100 WBC (Bld) 26.9 % Normal [facility] Comment on above: Performed By: #### C BCWD #### [facility] [address] [place] [address] MCH (RBC) [Entitic mass] 29.8 pg Normal 27.0-31.3 [facility] Comment on above: Performed By: #### C BCWD #### [facility] [address] [place] [address] MCHC (RBC) [Mass/Vol] 33.8 % Normal 33.0-37.0 [facility] Comment on above: Performed By: #### C BCWD #### [facility] [address] [place] [address] MCV (RBC) [Entitic vol] 88.4 fL Normal 82.0-100.0 [facility] Comment on above: Performed By: #### C BCWD #### [facility] [address] [place] [address] Monocytes (Bld) [#/Vol] 0.8 10*3/uL Normal 0.2-0.8 [facility] Comment on above: Performed By: #### C BCWD #### [facility] [address] [place] [address] Monocytes/100 WBC (Bld) 6.8 % Normal [facility] Comment on above: Performed By: #### C BCWD #### [facility] [address] [place] [address] Neutrophils (Bld) [#/Vol] 7.3 10*3/uL Critically high 1.4-6.5 [facility] Comment on above: Performed By: #### C BCWD #### [facility] [address] [place] [address] Neutrophils/100 WBC (Bld) 61.7 % Normal [facility] Comment on above: Performed By: #### C BCWD #### [facility] [address] [place] [address] Platelets (Bld) [#/Vol] 314 10*3/uL Normal 130-400 [facility] Comment on above: Performed By: #### C BCWD #### [facility] [address] [place] [address] RBC (Bld) [#/Vol] 4.45 10*6/uL Normal 4.20-5.40 [facility] Comment on above: Performed By: #### C BCWD #### [facility] [address] [place] [address] WBC (Bld) [#/Vol] 11.9 10*3/uL Critically high 4.8-10.8 [facility] Comment on above: Performed By: #### C BCWD #### [facility] [address] [place] [address] CT HEAD WO CONTRASTon 2019 CT HEAD [...] De Jesus DO 04/19/[address] [facility] Comprehensive Metabolic Pane crescencio 04-19-2020 Albumin [Mass/Vol] 4.9 g/dL Critically high 3.5-4.6 [facility] Comment on above: Performed By: #### C MP #### [facility] [address] [place] [address] ALP [Catalytic activity/Vol] 40 U/L Normal 40-130 [facility] Comment on above: Performed By: #### C MP #### [facility] [address] [place] [address] ALT [Catalytic activity/Vol] 17 U/L Normal 0-33 [facility] Comment on above: Performed By: #### C MP #### [facility] [address] [place] [address] Anion gap [Moles/Vol] 14 mmol/L Normal 9-15 [facility] Comment on above: Performed By: #### C MP #### [facility] [address] [place] [address] AST [Catalytic activity/Vol] 17 U/L Normal 0-35 [facility] Comment on above: Performed By: #### C MP #### [facility] [address] [place] [address] Bilirubin [Mass/Vol] mg/dL Normal 0.2-0.7 [facility] Comment on above: Performed By: #### C MP #### [facility] [address] [place] [address] Calcium [Mass/Vol] 10.0 mg/dL Critically high 8.5-9.9 [facility] [facility] Comment on above: Performed By: #### C MP #### [facility] [address] [place] [address] Chloride [Moles/Vol] 101 mmol/L Normal 95-107 [facility] Comment on above: Performed By: #### C MP #### [facility] [address] [place] [address] CO2 [Moles/Vol] 24 mmol/L Normal 20-31 [facility] Comment on above: Performed By: #### C MP #### [facility] [address] [place] [address] Creatinine [Mass/Vol] 0.87 mg/dL Normal 0.50-0.90 [facility] Comment on above: Performed By: #### C MP #### [facility] [address] [place] [address] GFR/1.73 sq M predicted among blacks MDRD (S/P/Bld) [Vol rate/Area] mL/min/{1.73_m2} Normal >60 [facility] Comment on above: Result Comment: >60 mL/min/1.73m2 EGFR, calc. for ages 18 and older using the MDRD formula (not corrected for weight), is valid for stable renal function. Performed By: #### C MP #### [facility] [address] [place] [address] GFR/1.73 sq M.predicted MDRD (S/P/Bld) [Vol rate/Area] mL/min/{1.73_m2} Normal >60 [facility] Comment on above: Result Comment: >60 mL/min/1.73m2 EGFR, calc. for ages 18 and older using the MDRD formula (not corrected for weight), is valid for stable renal function. Performed By: #### C MP #### [facility] [address] [place] [address] Globulin (S) [Mass/Vol] 3.1 g/dL Normal 2.3-3.5 M [facility] Comment on above: Performed By: #### C MP #### [facility] [address] [place] [address] Glucose [Mass/Vol] 94 mg/dL Normal 70-99 [facility] Comment on above: Performed By: #### C MP #### [facility] [address] [place] [address] Potassium [Moles/Vol] 3.9 mmol/L Normal 3.4-4.9 [facility] Comment on above: Performed By: #### C MP #### [facility] [address] [place] [address] Protein [Mass/Vol] 8.0 g/dL Normal 6.3-8.0 [facility] Comment on above: Performed By: #### C MP #### [facility] [address] [place] [address] Sodium [Moles/Vol] 139 mmol/L Normal 135-144 [facility] Comment on above: Performed By: #### C MP #### [facility] [address] [place] [address] Urea nitrogen [Mass/Vol] 12 mg/dL Normal 6-20 [facility] Comment on above: Performed By: #### C MP #### [facility] [address] [place] [address] Lactic Acidon 04-19-2020 Lactate [Moles/Vol] 1.8 mmol/L Normal 0.5-2.2 [facility] Comment on above: Performed By: #### L ACID #### [facility] [address] [place] [address] Prolactinon 04-19-2020 Prolactin 160.8 ng/mL Normal [facility] Comment on above: Result Comment: Defa ult Normal Ranges Female Male Non: 4.8-23.3 4.0-15.2 Performed By: #### P JAISON #### [facility] [address] [place] [address] Serum HCG Qualitativeon HCG.beta subunit Qn Negative Normal [facility] Comment on above: Performed By: #### S HCG #### [facility] [address] [place] [address] Urinalysis, reflex to cultur emily 04-19-2020 Urine Reflexed to Culture Not Indicated Normal [facility] Comment on above: Performed By: #### U AR #### [facility] [address] [place] [address] Bilirubin Ql (U) Negative Normal Negative [facility] Comment on above: Performed By: #### U AR #### [facility] [address] [place] [address] Clarity (U) Clear Normal Clear [facility] Comment on above: Performed By: #### U AR #### [facility] [address] [place] [address] Color (U) Yellow Normal Straw/Person [facility] Comment on above: Performed By: #### U AR #### [facility] [address] [place] [address] Glucose Ql (U) Negative Normal Negative [facility] Comment on above: Performed By: #### U AR #### [facility] [address] [place] [address] Hemoglobin Ql (U) Trace-intact Normal Negative [facility] Comment on above: Performed By: #### U AR #### [facility] [address] [place] [address] Ketones Ql (U) Negative Normal Negative [facility] Comment on above: Performed By: #### U AR #### [facility] [address] [place] [address] Leukocyte esterase Test strip Ql (U) Negative Normal Negative [facility] Comment on above: Performed By: #### U AR #### [facility] [address] [place] [address] Nitrite Ql (U) Negative Normal Negative [facility] Comment on above: Performed By: #### U AR #### [facility] [address] [place] [address] pH (U) 6.0 [pH] Normal 5.0-9.0 [facility] Comment on above: Performed By: #### U AR #### [facility] [address] [place] [address] Protein Ql (U) Negative Normal Negative [facility] Comment on above: Performed By: #### U AR #### [facility] [address] [place] [address] Specific gravity (U) [Rel density] 1.020 Normal 1.005-1.03 [facility] Comment on above: Performed By: #### U AR #### [facility] [address] [place] [address] Urobilinogen Qn (U) 0.2 {Alan'U}/dL Normal < 2.0 [facility] Comment on above: Performed By: #### U AR #### [facility] [address] [place] [address] Urine Microscopicon 04-19-20 20 Epithelial cells LM Ql (Urine sed) 0-[address] [facility] Comment on above: Performed By: #### U ARELY #### [facility] [address] [place] [address] RBC (U) [#/Vol] 0-2 Normal 0-2 [facility] Comment on above: Performed By: #### U ARELY #### [facility] [address] [place] [address] WBC (U) [#/Vol] 0-2 Normal 0-5 [facility] Comment on above: Performed By: #### U ARELY #### [facility] [address] [place] [address] CBC Auto Differentialon 10-0 -2020 Basophils (Bld) [#/Vol] 0.1 10*3/uL 0 - 0.2 K/u L [facility], [place] Basophils/100 WBC (Bld) 0.4 % [place], [place] Eosinophils (Bld) [#/Vol] 0.5 10*3/uL 0 - 0.7 K/uL [place] Eosinophils/100 WBC (Bld) 4.2 % [place] Erythrocyte distribution width (RBC) [Ratio] 12.5 % 11.5 - 14.5 % [place] Hematocrit (Bld) [Volume fraction] 39.4 % 37 - 47 % [place] Hemoglobin (Bld) [Mass/Vol] 13.3 g/dL 12 - 16 g/dL [place] Interpretation and review of laboratory results Abnormal [place] Lymphocytes (Bld) [#/Vol] 3.2 10*3/uL 1 - 4.8 K/uL [place] Lymphocytes/100 WBC (Bld) 26.9 % [place] MCH (RBC) [Entitic mass] 29.8 pg 27 - 31.3 pg [place] MCHC (RBC) [Mass/Vol] 33.8 % 33 - 37 % [place], [place] MCV (RBC) [Entitic vol] 88.4 fL 82 - 100 fL [place] Monocytes (Bld) [#/Vol] 0.8 10*3/uL 0.2 - 0.8 K /uL [place] Monocytes/100 WBC (Bld) 6.8 % [place] Neutrophils Absolute 7.3 K/uL High 1.4 - 6.5 K/uL [place] Neutrophils/100 WBC (Bld) 61.7 % [place] Platelets (Bld) [#/Vol] 314 10*3/uL 130 - 400 K /uL [place] RBC (Bld) [#/Vol] 4.45 10*6/uL [place] WBC (Bld) [#/Vol] 11.9 10*3/uL High 4.8 - 10.8 K/uL [place] Comprehensive Metabolic Pane crescencio 04-18-2020 Albumin [Mass/Vol] 4.9 g/dL High 3.5 - 4.6 g/dL [place] ALP [Catalytic activity/Vol] 40 U/L 40 - 130 U/L [place] ALT [Catalytic activity/Vol] 17 U/L 0 - 33 U/L [place] Anion gap [Moles/Vol] 14 mmol/L [place] AST [Catalytic activity/Vol] 17 U/L 0 - 35 U/L [place] Bilirubin Ql (U) <0.2 0.2 - 0.7 mg/dL [place] Calcium [Mass/Vol] 10.0 mg/dL High 8.5 - 9.9 mg/dL [place] Chloride [Moles/Vol] 101 mmol/L [place] CO2 [Moles/Vol] 24 mmol/L [place] Creatinine [Mass/Vol] 0.87 mg/dL 0.5 - 0.9 mg/dL [place] GFR >60.0 >60 [place] Comment on above: >60 mL/min/1.73m2 EG FR, calc. for ages 18 and older using the MDRD formula (not corrected for weight), is valid for stable renal function. GFR Non- >60.0 >60 [place] Comment on above: >60 mL/min/1.73m2 EG FR, calc. for ages 18 and older using the MDRD formula (not corrected for weight), is valid for stable renal function. Globulin (S) [Mass/Vol] 3.1 g/dL 2.3 - 3.5 g/ dL [place] Glucose [Mass/Vol] 94 mg/dL 70 - 99 mg/dL [place] Interpretation and review of laboratory results Abnormal [place] Potassium [Moles/Vol] 3.9 mmol/L [place] Protein [Mass/Vol] 8.0 g/dL 6.3 - 8 g/dL [place] Sodium [Moles/Vol] 139 mmol/L [place] Urea nitrogen [Mass/Vol] 12 mg/dL 6 - 20 mg/dL [place] HCG Qualitative, Serumon hCG Qual Negative [place] Lactic Acid, Plasmaon 2019 Lactate [Moles/Vol] 1.8 mmol/L 0.5 - 2. 2 mmol/L [place] Microscopic Urinalysison Epithelial Cells, UA 0-2 /HPF [place] RBC (U) [#/Vol] 0-2 [place] WBC, UA 0-2 [place] Urine Reflex to Cultureon Bilirubin Urine Negative Negative [place] Blood, Urine Trace-intact Negative [place] Clarity, UA Clear Clear [place] Color, UA Yellow Straw/Yellow [place] Glucose, Ur Negative Negative mg/dL [place] Ketones Ql (U) Negative Negative mg/dL [place] Leukocyte esterase Test strip Ql (U) Negative Negative [place] Nitrite, Urine Negative Negative [place] pH, UA 6.0 [place] Protein (U) [Mass/Vol] Negative Negative mg/d L [place] Specific [place], UA 1.020 [place] Urine Reflex to Culture Not Indicated [place] Urobilinogen, Urine 0.2 <2.0 E.U./dL [place] ECHOCARDIOGRAPHY REPORT (HL) on 05-10-2017 ECHOCARDIOGRAPHY REPORT (HL) PRINCESS CANTU [id number] [id number] VASCULAR LABReferring: Koffi Uriarte A.Reading: CURTIS GARCIA [...] 4 CH 16.1 cm2LA Volume Indexed 21.05 ml/h5Paukwkjnb/Systoli c FunctionMV E-wave Vmax 0.884 m/secMV deceleration time 193 msecMV A-wave Vmax 0.494 m/secLV septal e' Vmax 0.115 m/secLV lateral e' Vmax 0.189 m/secLV E:e' septal ratio 7.7 ratio [facility] PRINCESS CANTU [id number] [place] [address] [id number] 93Jackie Uriarte MDECHOCARDIOGRAPHY REPORTLV E:e' lateral ratio [...] structure. There is no evidence ofpulmonic regurgitation. [facility] PRINCESS CANTU [id number] [place] [address] [id number] 93Jackie roper MDECHOCARDIOGRAPHY REPORTPericardium:Ther e is no [...] function.This is a normal echocardiogram.PARAS CHOW05/10/2017 10:26:53 [facility] PRINCESS CANTU [id number] [place] [address] [id number] 93Jackie roper MDECHOCARDIOGRAPHY REPORT Normal [facility] BASIC METABOLIC PANELon 10-1 Anion gap 10 mmol/L Normal 6-18 [facility] Comment on above: Order Comment: Is pa tient fasting? YES Performed By: #### L BMP, LGFRP ####[facility] [id number] [place] [address] Calcium 9.6 mg/dL Normal 8.6-10.3 [facility] Comment on above: Order Comment: Is pa tient fasting? YES Performed By: #### L BMP, LGFRP ####[facility] [address] [place] [address] Chloride 101 mmol/L Normal 98-107 [facility] Comment on above: Order Comment: Is pa tient fasting? YES Performed By: #### L BMP, LGFRP ####[facility] [address] [place] [address] CO2 27 mmol/L Normal 21-32 [facility] Comment on above: Order Comment: Is pa tient fasting? YES Performed By: #### L BMP, LGFRP ####[facility] [id number] [place] [address] Creatinine 0.74 mg/dL Normal 0.5-1.05 [facility] Comment on above: Order Comment: Is pa tient fasting? YES Performed By: #### L BMP, LGFRP ####[facility] [id number] [place] [address] Glucose mass conc 82 mg/dL Normal 74-99 [facility] Comment on above: Order Comment: Is pa tient fasting? YES Performed By: #### L BMP, LGFRP ####[facility] [id number] [place] [address] Potassium molar conc 4.1 mmol/L Normal 3.5-5.3 [facility] Comment on above: Order Comment: Is pa tient fasting? YES Performed By: #### L BMP, LGFRP ####[facility] [address] [place] [address] Sodium 134 mmol/L Low 136-145 [facility] Comment on above: Order Comment: Is pa tient fasting? YES Performed By: #### L BMP, LGFRP ####[facility] [id number] [place] [address] Urea nitrogen 14 mg/dL Normal 6-23 [facility] Comment on above: Order Comment: Is pa tient fasting? YES Performed By: #### L BMP, LGFRP ####[facility] [id number] [place], [place] [id number] CBC AUTOon 05-04-2017 Erythrocyte distribution width Auto Ratio (RBC) 12.8 % Normal 11.5-14.5 [facility] Comment on above: Performed By: #### L CBC ####[place] [id number] Erythrocytes (RBC) 4.65 10*6/uL Normal 3.5-5.5 [facility] Comment on above: Performed By: #### L CBC ####[place] [address] Hematocrit (HCT) 41.1 % Normal 36.0-48.0 [facility] Comment on above: Performed By: #### L CBC ####[place] [address] Hemoglobin mass conc (Bld) 13.8 g/dL Normal 12.0-15.0 [facility] Comment on above: Performed By: #### L CBC ####[place] [id number] MCH 29.7 pg Normal 25.4-34.6 [facility] Comment on above: Performed By: #### L CBC ####[place] [id number] MCHC mass conc (RBC) 33.6 g/dL Normal 30.0-36.0 [facility] Comment on above: Performed By: #### L CBC ####[facility] [id number] [place], [place] [id number] MCV 88.4 fL Normal 79.0-98.0 [facility] Comment on above: Performed By: #### L CBC ####[place] [id number] Platelet mean volume (PMV) 9.3 fL Normal 8.4-11.9 [facility] Comment on above: Performed By: #### L CBC ####[place] [id number] Platelets 277 10*3/uL Normal 140-440 [facility] Comment on above: Performed By: #### L CBC ####[facility] [address] [place] [address] WBC (Leukocytes) 6.1 10*3/uL Normal 3.9-11.0 [facility] Comment on above: Performed By: #### L CBC ####[facility] [address] [place] [address] GLOMERULAR FILTRATION RATE E STon 05-04-2017 eGFR (non-black) mL/min/{1.73_m2} Normal > 60 [facility] Comment on above: Order Comment: Is pa tient fasting? YES Performed By: #### L BMP, LGFRP ####[facility] [id number] [place] [address] IF AMER > 90 Normal > 60 [facility] Comment on above: Order Comment: Is pa tient fasting? YES Result Comment: Effe ctive 12/12/14:CKD-EPI equation / based on IDMS traceable creatinine.Continue to use the CREAT CLR-DOSE ([place]gro[place]-Gault)value for determining medication dose. Performed By: #### L BMP, LGFRP ####[facility] [id number] [place] [address] Vital Signs Date Time Vital Sign Value Performing Clinician Yael murguia 07-31-2022 10:54-0500 Body height 175.26 cm Koffi Rosas [employer] Work Phone: [employer] Work Phone: 07-31-2022 10:54-0500 Body mass index (BMI) [Ratio] 31.01 kg/m2 Koffi Clementeson Work Phone: [employer] Work Phone: 07-31-2022 10:54-0500 Body surface area Derived from formula 2.11 m2 Koffi Clementeson Work Phone: [employer] Work Phone: 07-31-2022 10:54-0500 Body temperature 97.6 [degF] Koffi Uriarte Work Phone: WK-XTNK-Zbdm [place] Work Phone: 07-31-2022 10:54-0500 Body weight 95.26 kg Koffi Uriarte Work Phone: PE-RLCO-Xjhj [place] Work Phone: 07-31-2022 10:54-0500 Diastolic blood pressure 87 mm[Hg] Koffi Uriarte Work Phone: BP-TJAN-Bcsx [place] Work Phone: 07-31-2022 10:54-0500 Heart rate 76 /min Koffi Uriarte Work Phone: MW-OCUD-Xhuo [place] Work Phone: 07-31-2022 10:54-0500 Respiratory rate 18 /min Koffi Uriarte Work Phone: EU-PJGZ-Ugvu [place] Work Phone: 07-31-2022 10:54-0500 Systolic blood pressure 121 mm[Hg] Koffi Uriarte Work Phone: HA-KLJQ-Nndj [place] Work Phone: 12-24-2021 11:32-0400 Body height 175.26 cm Koffi Uriarte Work Phone: OB-Iedqdrljc-Jnst [place] [facility] DO Work Phone: 12-24-2021 11:32-0400 Body mass index (BMI) [Ratio] 31.03 kg/m2 Koffi Uriarte Work Phone: QP-Idlwafpiw-Xawl [place] [facility] DO Work Phone: 12-24-2021 11:32-0400 Body surface area Derived from formula 2.11 m2 Koffi Uriarte Work Phone: FZ-Qtxzihrog-Dnel [place] [facility] DO Work Phone: 12-24-2021 11:32-0400 Body temperature 97.1 [degF] Koffi Uriarte Work Phone: [facility] DO Work Phone: 12-24-2021 11:32-0400 Body weight 95.3 kg Koffi Uriarte Work Phone: [facility] DO Work Phone: 12-24-2021 11:32-0400 Diastolic blood pressure 76 mm[Hg] Koffi Uriarte Work Phone: [facility] DO Work Phone: 12-24-2021 11:32-0400 Heart rate 54 /min Koffi Uriarte Work Phone: [facility] DO Work Phone: 12-24-2021 11:32-0400 SaO2% (BldA) [Mass fraction] 100 % Koffi Uriarte Work Phone: [facility] DO Work Phone: 12-24-2021 11:32-0400 Systolic blood pressure 114 mm[Hg] Koffi Uriarte Work Phone: [facility] DO Work Phone: 11-17-2021 13:08-0400 Body height 172.72 cm Koffi Uriarte Work Phone: [facility] Work Phone: 11-17-2021 13:08-0400 Body mass index (BMI) [Ratio] 32.39 kg/m2 Koffi Uriarte Work Phone: BL-EMVO-Xpbq [place] Work Phone: 11-17-2021 13:08-0400 Body surface area Derived from formula 2.1 m2 Koffi Uriarte Work Phone: XA-HTPE-[place] Work Phone: 11-17-2021 13:08-0400 Body temperature 97 [degF] Koffi Uriarte Work Phone: PM-NXKV-Elsr [place] Work Phone: 11-17-2021 13:08-0400 Body weight 96.62 kg Koffi Uriarte Work Phone: LV-MDRI-Vxrx [place] Work Phone: 11-17-2021 13:08-0400 Diastolic blood pressure 84 mm[Hg] Koffi Uriarte Work Phone: LP-GONM-Amjs [place] Work Phone: 11-17-2021 13:08-0400 Heart rate 70 /min Koffi Uriarte Work Phone: DO-YAXO-Kefl [place] Work Phone: 11-17-2021 13:08-0400 Respiratory rate 18 /min Koffi Uriarte Work Phone: HD-OWSU-Qtkv [place] Work Phone: 11-17-2021 13:08-0400 SaO2% (BldA) [Mass fraction] 96 % Koffi Uriarte Work Phone: XZ-QWZF-Lnaz [place] Work Phone: 11-17-2021 13:08-0400 Systolic blood pressure 126 mm[Hg] Koffi Uriarte Work Phone: LZ-ROJA-Shlj [place] Work Phone: 06-25-2021 10:54-0500 Body height 172.72 cm Koffi Uriarte Work Phone: BF-Omwzriqxm-Xnvt [place] S[facility] DO Work Phone: 06-25-2021 10:54-0500 Body mass index (BMI) [Ratio] 32.08 kg/m2 Koffi Uriarte Work Phone: [facility] DO Work Phone: 06-25-2021 10:54-0500 Body surface area Derived from formula 2.09 m2 Koffi Uriarte Work Phone: [facility] DO Work Phone: 06-25-2021 10:54-0500 Body temperature 97.1 [degF] Koffi Uriarte Work Phone: [facility] DO Work Phone: 06-25-2021 10:54-0500 Body weight 95.71 kg Koffi Uriarte Work Phone: [facility] DO Work Phone: 06-25-2021 10:54-0500 Diastolic blood pressure 62 mm[Hg] Koffi Uriarte Work Phone: [facility] DO Work Phone: 06-25-2021 10:54-0500 Heart rate 67 /min Koffi Uriarte Work Phone: [facility] DO Work Phone: 06-25-2021 10:54-0500 Respiratory rate 18 /min Koffi Uriarte Work Phone: [facility] DO Work Phone: 06-25-2021 10:54-0500 SaO2% (BldA) [Mass fraction] 99 % Koffi Uriarte Work Phone: [facility] DO Work Phone: 06-25-2021 10:54-0500 Systolic blood pressure 131 mm[Hg] Koffi Uriarte Work Phone: [facility] DO Work Phone: 05-20-2021 15:59-0400 Body height 172.72 cm Koffi Uriarte Work Phone: NB-LACR-Vmfi [place] Work Phone: 05-20-2021 15:59-0400 Body mass index (BMI) [Ratio] 31.93 kg/m2 Koffi Uriarte Work Phone: AH-SCXD-Ndpo [place] Work Phone: 05-20-2021 15:59-0400 Body surface area Derived from formula 2.09 m2 Koffi Uriarte Work Phone: TB-VVVE-Ywzr [place] Work Phone: 05-20-2021 15:59-0400 Body temperature 98.1 [degF] Koffi Uriarte Work Phone: KO-TXFY-Lihl [place] Work Phone: 05-20-2021 15:59-0400 Body weight 95.26 kg Koffi Uriarte Work Phone: VS-YCFL-Engy [place] Work Phone: 05-20-2021 15:59-0400 Diastolic blood pressure 82 mm[Hg] Koffi Uriarte Work Phone: AW-GBPN-Wtki [place] Work Phone: 05-20-2021 15:59-0400 Heart rate 72 /min Koffi Uriarte Work Phone: XZ-YZOT-Dgpn [place] Work Phone: 05-20-2021 15:59-0400 Respiratory rate 16 /min Koffi Uriarte Work Phone: JV-PITN-Xgsf [place] Work Phone: 05-20-2021 15:59-0400 Systolic blood pressure 122 mm[Hg] Koffi Uriarte Work Phone: NR-BIED-Clpx [place] Work Phone: 12-24-2020 14:45-0400 Body height 172.72 cm Koffi Uriarte Work Phone: JA-BFJM-Ufmg [place] Work Phone: 12-24-2020 14:45-0400 Body mass index (BMI) [Ratio] 30.71 kg/m2 Koffi Uriarte Work Phone: KU-ZFHQ-Aupq [place] Work Phone: 12-24-2020 14:45-0400 Body surface area Derived from formula 2.05 m2 Koffi Uriarte Work Phone: OK-GURP-Ysti [place] Work Phone: 12-24-2020 14:45-0400 Body temperature 97.8 [degF] Koffi Uriarte Work Phone: LE-MBAD-Xixq [place] Work Phone: 12-24-2020 14:45-0400 Body weight 91.63 kg Koffi Uriarte Work Phone: ZS-HMRY-Stxv [place] Work Phone: 12-24-2020 12:59-0400 Body height 172.72 cm Koffi Uriarte Work Phone: GL-CORA-Yxrm [place] Work Phone: 12-24-2020 12:59-0400 Body mass index (BMI) [Ratio] 30.71 kg/m2 Koffi Clementeson Work Phone: BH-NWSN-Lzqo [place] Work Phone: 12-24-2020 12:59-0400 Body surface area Derived from formula 2.05 m2 Koffi Clementeson Work Phone: XF-BNUN-Oyfv [place] Work Phone: 12-24-2020 12:59-0400 Body temperature 98.2 [degF] Koffi Uriarte Work Phone: KV-VNCQ-Dkxq [place] Work Phone: 12-24-2020 12:59-0400 Body weight 91.63 kg Koffi Uriarte Work Phone: UC-KXCN-Jkxg [place] Work Phone: 12-24-2020 12:59-0400 Diastolic blood pressure 90 mm[Hg] Koffi Uriarte Work Phone: AC-ECXG-Wbyw [place] Work Phone: 12-24-2020 12:59-0400 Heart rate 75 /min Koffi Uriarte Work Phone: HJ-NPFE-Qiaj [place] Work Phone: 12-24-2020 12:59-0400 Respiratory rate 16 /min Koffi Uriarte Work Phone: CA-VJNT-Jika [place] Work Phone: 12-24-2020 12:59-0400 Systolic blood pressure 147 mm[Hg] Koffi Uriarte Work Phone: QQ-PVPP-Ivih [place] Work Phone: 08-14-2020 13:26-0500 BMI (Body Mass Index) 29.04 kg/m2 Koffi Uriarte YV-Rhbocxzqf-Twzd [place] [facility] DO Work Phone: 08-14-2020 13:26-0500 Body Temperature 97.5 [degF] [facility]offi Uri[facility] DO Work Phone: 08-14-2020 13:26-0500 Body weight 86.64 kg Koffi Uriarte [facility] Work Phone: 08-14-2020 13:26-0500 BP Diastolic 100 mm[Hg] Koffi Uriarte [facility] Work Phone: 08-14-2020 13:26-0500 BP Systolic 150 mm[Hg] Koffi Uriarte [facility] DO Work Phone: 08-14-2020 13:26-0500 BSA (Body Surface Area) 2 m2 Koffi Uriarte LJ-Fouqjcyvk-Bghr [place] [facility] DO Work Phone: 08-14-2020 13:26-0500 Height 172.72 cm Koffi Uriarte MP-Neurology- [facility] Work Phone: 05-28-2020 15:24-0500 BMI (Body Mass Index) 28.59 kg/m2 Koffi Uriarte MP-[facility] Work Phone: 05-28-2020 15:24-0500 Body Temperature 97.6 [degF] Koffi Uriarte VI-GSBQ-Uhfl [place] Work Phone: 05-28-2020 15:24-0500 Body weight 85.28 kg Koffi Uriarte ST-JKAC-Qcrj [place] Work Phone: 05-28-2020 15:24-0500 BP Diastolic 82 mm[Hg] Koffi Uriarte ES-PZZC-Sirj [place] Work Phone: 05-28-2020 15:24-0500 BP Systolic 122 mm[Hg] Koffi Uriarte EK-UOOJ-Xhhw [place] Work Phone: 05-28-2020 15:24-0500 BSA (Body Surface Area) 1.99 m2 Koffi Uriarte XB-TYJS-Spws [place] Work Phone: 05-28-2020 15:24-0500 Height 172.72 cm Koffi Uriarte CV-QKXI-Ipjv [place] Work Phone: 05-28-2020 15:24-0500 Pulse (Heart Rate) 70 /min Koffi Uriarte MP-WSPC-Av on [place] Work Phone: 05-28-2020 15:24-0500 Respiratory Rate 18 /min Koffi RAGLAND-Jennifer [place] Work Phone: 04-25-2020 16:01-0400 BMI (Body Mass Index) 28.59 kg/m2 Koffi uRby Work Phone: 04-25-2020 16:01-0400 Body Temperature 98.6 [...] 22:17-0400 BMI (Body Mass Index) 28.06 kg/m2 [facility], [place] 04-18-2020 22:17-0400 Body Temperature 98.91 [degF] Tu Wright [facility], [place] 04-18-2020 22:17-0400 Body weight 86.18 kg Tu Wright [facility], [place] 04-18-2020 22:17-0400 Height 175.3 cm Tu Wright [facility] 04-18-2020 22:17-0400 Pulse (Heart Rate) 105 /min Tu Barker [facility], [place] 04-18-2020 22:17-0400 Pulse Oximetry 97 % Tu Wright [facility], [place] 04-18-2020 22:17-0400 Respiratory Rate 16 /min Tu [place] Adriana [facility], [place] Encounters Encounter Date Encounter Type Care Provider Facility Start: 07-14-2023 End: 07-14-2023 ambulatory SHIMA RODAS Not Available Start: 06-30-2023 End: 07-01-2023 ambulatory SHIMA RODAS Not Available Start: 06-16-2023 End: 06-16-2023 ambulatory SHIMA CLARK Not Available Start: 06-01-2023 End: 06-01-2023 ambulatory SHIMA CLARK Not Available Start: 04-30-2023 End: 04-30-2023 ambulatory [facility] Start: 04-30-2023 End: 04-30-2023 Office outpatient visit 15 minutes Nedra Calderon MD Work Phone: [facility] Comment on above: Seizure (CMS/HCC) (P rimary Dx) Start: 11-25-2022 End: 11-26-[address] LISA ZIMMERMAN . Facility:[facility] Start: 11-16-2022 End: 11-17-[address] LISA ZIMMERMAN . Facility:[facility] Start: 07-31-2022 Current tobacco non- user cad cap copd pv dm Koffi Uriarte Work Phone: [employer] Work Phone: Start: 07-31-2022 Periodic preventive med est patient 18-39 yrs Koffi Uriarte Work Phone: [employer] Work Phone: Start: 07-31-[address] Koffi Uriarte Facility:[id number] Start: 04-16-2022 End: 04-17-2022 ambulatory KAVITA SWEET Facility:[facility] Start: 03-24-2022 End: 03-25-2022 ambulatory Dane Hassan [place] Start: 03-24-2022 Telephone encounter Kavita lyons DO Work Phone: OB/Gynecology Comment on above: Bleeding With Pregna ncy Start: 03-24-2022 End: 03-24-2022 Patient encounter procedure Dane Hassan [facility] Start: 03-19-2022 Telephone encounter Georgia Nathan th HEADER SET UP OPERATOR.CHIP MACHINE OPERATOR Work Phone: CB/Gynecology Comment on above: Appointment Start: 03-18-2022 AUDIT Koffi Carlson TURN8 Work Phone: DH-Qsphucsmn-Kjevifv e SJW DO Work Phone: Start: 02-03-2022 ambulatory Brendan Blankenship PA-C Work Phone: OB/Gynecology Comment on above: Bacteria Vaginosis Start: 01-02-2022 AUDIT Koffi Rosas [employer]o [employer] Work Phone: VY-IXRG-Owqi [place] Work Phone: Start: 12-24-2021 Office outpatient vi sit 15 minutes Koffi Clementeson Work Phone: BL-Xzsfardty-Effnhpr e SJW DO Work Phone: Start: 11-17-2021 Office outpatient vi sit 15 minutes Koffi Clementeson Work Phone: PE-DFOO-Agxq [place] Work Phone: Start: 09-29-2021 AUDIT Koffi Carlson ardson Work Phone: EJ-VDIO-Emhm [place] Work Phone: Start: 09-09-2021 End: 09-09-2021 ambulatory BRENDAN BLANKENSHIP Facility:[facility] Start: 07-04-2021 End: 07-05-2021 ambulatory GEORGIA DWYER Facility:[facility] Start: 07-04-2021 Encounter for gynecological examination (general) (routine) without abnormal findings GEORGIA DWYER [facility] Start: 06-25-2021 Office outpatient vi sit 25 minutes Koffi Alison Uriarte Work Phone: TK-Rxvnxiavk-Vkdaxmc e SJW DO Work Phone: Start: 05-22-2021 Chart Update Koffi Carlson ardson Work Phone: WG-ABVZ-Yjaj [place] Work Phone: Start: 05-20-2021 Office outpatient vi sit 25 minutes Koffi Alison Uriarte Work Phone: XD-LUFE-Kqoq [place] Work Phone: Start: 05-20-2021 Patient encounter procedure Koffi Alison ClementeUriarte Work Phone: IV-PMYJ-Jdrw [place] Work Phone: Start: 03-28-2021 AUDIT Koffi Carlson ardson Work Phone: RP-MXOK-Lhik [place] Work Phone: Start: 12-24-2020 Chart Update Koffi Alison Carlson ardson Work Phone: NB-LSNS-Bwgh [place] Work Phone: Start: 12-24-2020 Office outpatient vi sit 25 minutes Koffi A Uriarte Work Phone: XD-JFZZ-Fsnq [place] Work Phone: Start: 08-14-2020 Patient encounter procedure Koffi Clementeson GK-Hymspipii-Udsgakc e SJW DO Work Phone: Start: 06-11-2020 Patient encounter procedure Koffi Uriarte JG-Bdiqdkxwz-Asvhhgt e SJW DO Work Phone: Start: 05-28-2020 Patient encounter procedure Koffi Uriarte SL-YPZW-Cwgm [place] Work Phone: Start: 05-09-2020 End: 05-12-2020 Patient encounter procedure SPIKE GARCIA [facility] Start: 05-09-2020 End: 05-11-2020 Subsequent hospital visit by physician Madeline Frey 1 EEG Comment on above: 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) Start: 04-25-2020 Patient encounter procedure Koffi Uriarte SC-LLAN-Wpgy [place] Work Phone: Start: 04-19-2020 End: 04-19-2020 Emergency department patient visit ZAC [facility] Start: 04-18-2020 End: 04-19-2020 Emergency department patient visit Tu Curran Work Phone: [facility] Comment on above: Seizure (HCC) (Prima ry Dx) Start: 03-02-2019 Patient encounter procedure Koffi Uriarte DR-GPEM-Rqgj [place] Work Phone: Start: 05-04-2017 [facility]ulatory [facility] [place] Patient encounter status Koffi Uriarte Work Phone: AH-BKXD-Nbtb [place] Work Phone: Procedures Date Procedure Procedure [...] Start: 04-18-2020 Urinalysis microscopic only Tu [facility] Work Phone: Start: 04-18-2020 Urnls dip [...] f 2) Zoster Vaccines (1 of 2) [facility] Start: 02-17-2028 DTaP/Tdap/Td Vaccine s (8 - Td or Tdap) DTaP/Tdap/Td Vaccines (8 - Td or Tdap) [facility] Start: 08-02-2023 PHYSICAL, Provider: Koffi Uriarte, Status: Pen, Time: 9:00 AM PHYSICAL, Provider: Koffi Uriarte, Status: Pen, Time: 9:00 AM GT-PKIC-Kavz [place] Work Phone: Start: 08-02-2023 End: 08-02-2023 Patient encounter procedure 08/02/2023 9:00 AM EST Office Visit [facility] [address] [id number] [place] [address] [place], [place] [id number] [facility] Start: 07-02-2023 PAP TESTING PAP TESTING [facility] Start: 07-02-2023 Screening for malignant neoplasm of cervix [facility] Start: 12-24-2022 ERIKA, Provider : Nedra Calderon, Status: Pen, Time: 10:00 AM ERIKA, Provider: Nedra Calderon, Status: Pen, Time: 10:00 AM GQ-Wyothdgws-Fkrcoue e AMANDAW DO Work Phone: Start: 05-22-2022 PHYSICAL, Provider: Koffi Uriarte, Status: Pen, Time: 9:50 AM PHYSICAL, Provider: Koffi Uriarte, Status: Pen, Time: 9:50 AM ZS-ZXNI-Gaef [place] Work Phone: Start: 03-24-2022 End: 05-24-2022 Choriogonadotropin.bet a subunit [Units/volume] in Serum or Plasma HCG QUANTITATIVE Lab Routine Bleeding in early Expected: 03/24/2022, Expires: 05/24/2022 [facility] Work Phone: Comment on above: Expected: 03/24/2022 , Expires: 05/24/2022 Start: 03-19-2022 Influenza vaccination INFLUENZA (#1) [facility] Start: 12-24-2021 Thyroid stimulating hormone measurement TSH Level [facility] Start: 12-24-2021 FUVGENERAL, Provider : Nedra Calderon, Status: Pen, Time: 11:30 AM FUVGENERAL, Provider: Nedra Calderon, Status: Pen, Time: 11:30 AM PK-Ysfqeldiv-Zkqjocg e SJW DO Work Phone: Start: 11-17-2021 FUV, Provider: Koffi Uriarte, Status: Pen, Time: 1:00 PM FUV, Provider: Koffi Uriarte, Status: Pen, Time: 1:00 PM UP-GJRQ-Xdsm [place] Work Phone: Start: 07-01-2021 COVID-19 VACCINE (3 - Booster for Pfizer series) COVID-19 VACCINE (3 - Booster for Pfizer series) [facility] Start: 06-25-2021 FUVGENERAL, Provider : Nedra Calderon, Status: Pen, Time: 2:00 PM FUVGENERAL, Provider: Nedra Calderon, Status: Pen, Time: 2:00 PM TX-BVYY-Kgpq [place] Work Phone: Start: 06-25-2021 FUVGENERAL, Provider : Nedra Calderon, Status: Pen, Time: 11:00 AM FUVGENERAL, Provider: Nedra Calderon, Status: Pen, Time: 11:00 AM VL-HCJS-Tzrx [place] Work Phone: Start: 05-20-2021 FUV, Provider: Koffi Uriarte, Status: Pen, Time: 3:40 PM FUV, Provider: Koffi Uriarte, Status: Pen, Time: 3:40 PM CA-UONP-Mrxx [place] Work Phone: Start: 03-31-2021 FUV, Provider: Koffi Uriarte, Status: Pen, Time: 2:00 PM FUV, Provider: Koffi Uriarte, Status: Pen, Time: 2:00 PM LD-JWGN-Eqhm [place] Work Phone: Start: 03-26-2021 COVID-19 Vaccine (3 - Pfizer series) COVID-19 Vaccine (3 - Pfizer series) [facility] Start: 03-19-2020 Influenza vaccination Flu vaccine (# 1) [place] Start: 03-02-2018 DTaP/Tdap/Td vaccine (7 - Td) DTaP/Tdap/Td vaccine (7 - Td) [place] Start: 03-02-2018 Urine microalbumin profile DTAP,TDAP,TD (7 - Td or Tdap) [facility] Start: 2014 Screening for malignant neoplasm of cervix [facility] Start: 10-02-2011 HEPATITIS C SCREENING HEPATITIS C [facility] Start: 10-02-2011 Hepatitis C screening Hepatitis C [facility] Start: 10-02-2011 HIV SCREENING HIV SCREENING [facility] Start: 2008 HIV screening HIV screen [place], [place] Start: 2005 Adult depression screening assessment DEPRESSION SCREENING [facility] Start: 2004 HPV vaccine (1 - 2-dose series) HPV vaccine (1 - 2-dose series) [place], [place] Start: 04-09-1999 Varicella vaccination Varicell a Vaccines (1 of 2 - 2-dose childhood series) [facility] Start: 1994 Varicella vaccine (1 of 2 - 2-dose childhood series) Varicella vaccine (1 of 2 - 2-dose childhood series) [place], [place] Start: 1993 HIV screening HIV Screening [facility] Start: 1993 Lipid panel Lipid Panel [facility] Start: 1993 Yearly Adult Physical Yearly Adult P hysical [facility] End: 04-18-2020 CT Head WO Contrast CT Head WO Contrast Imaging STAT Once for 1 Occurrences starting 04/18/2020 until 04/18/2020 [place] Comment on above: Once for 1 Occurrenc es starting 04/18/2020 until 04/18/2020 CT Head WO Contrast CT Head WO C ontrast Imaging STAT 04/18/2020 11:15 PM EDT [place] End: 04-18-2020 Prolactin Prolactin Lab STAT One Time for 1 Occurrences starting 04/18/2020 until 04/18/2020 [place] Comment on above: One Time for 1 Occur rences starting 04/18/2020 until 04/18/[address] AT 04/18/2020 11:17 PM EDT [place] MM-OMSH-Jvvi Gurnard [employer] Work Phone: [facility] NEGATED: Highlighted row has been ruled out! Planned Goals not documented GB-RTTV-Qelh [place] Work Phone: Immunizations Immunization Date Immunization Notes Care Provider Radha laura 04-21-2022 influenza, injectabl e, quadrivalent, preservative free Koffi A Uriarte Work Phone: AW-UTZX-Pryb [place] Work Phone: 04-18-2021 influenza, injectabl e, quadrivalent, preservative free Koffi A Uriarte Work Phone: FC-SKRU-Xgzs [place] Work Phone: 01-29-2021 Pfizer-BioNTech COVID-19 Vacc 30 MCG/0.3ML Intramuscular Suspension Koffi A Uriarte Work Phone: MQ-JZVH-Ovie [place] Work Phone: 01-08-2021 Pfizer-BioNTech COVID-19 Vacc 30 MCG/0.3ML Intramuscular Suspension Koffi A Uriarte Work Phone: NZ-TMAP-Tdek [place] Work Phone: 05-09-2019 Influenza, injectabl e, Madin Claudia Canine Kidney, preservative free, quadrivalent Koffi A Uriarte Work Phone: [employer] Work Phone: 04-28-2018 influenza, injectabl e, quadrivalent, contains preservative Koffi Uriarte Work Phone: [employer] Work Phone: 02-16-2018 tetanus toxoid, redu diego diphtheria toxoid, and acellular pertussis vaccine, adsorbed Koffi Rosas Uriarte Work Phone: [employer] Work Phone: 05-06-2017 influenza, injectabl e, quadrivalent, preservative free Koffi Rosas Uriarte Work Phone: [employer] Work Phone: 01-14-2016 pneumococcal polysaccharide vaccine, 23 valent Koffi Alison [employer] Work Phone: RE-EKXF-Wnbo [place] Work Phone: 11-30-2014 tuberculin skin test ; purified protein derivative solution, intradermal [facility], [place] 12-15-2013 tuberculin skin test ; purified protein derivative solution, intradermal [facility] 03-02-2008 tetanus toxoid, redu diego diphtheria toxoid, and acellular pertussis vaccine, adsorbed [facility] 02-25-2007 meningococcal polysaccharide (groups A, C, Y and W-135) diphtheria toxoid conjugate vaccine (MCV4P) [facility], [place] 02-25-2007 Meningococcal, MCV4, unspecified conjugate formulation(groups A, C, Y and W-135) [facility] 03-12-1999 diphtheria, tetanus toxoids and acellular pertussis vaccine [facility] 03-12-1999 diphtheria, tetanus toxoids and acellular pertussis vaccine, unspecified formulation Koffi Uriarte Work Phone: [employer] Work Phone: 03-12-1999 haemophilus influenz ae type b vaccine, HbOC conjugate [facility] 03-12-1999 measles, mumps and rubella virus vaccine [facility] 03-12-1999 poliovirus vaccine, inactivated [facility], [place] 03-12-1999 trivalent poliovirus vaccine, live, oral [place], [place] 01-07-1995 diphtheria, tetanus toxoids and acellular pertussis vaccine [facility] 01-07-1995 diphtheria, tetanus toxoids and acellular pertussis vaccine, unspecified formulation Koffi Uriarte Work Phone: [employer] Work Phone: 10-22-1994 haemophilus influenz ae type b vaccine, conjugate unspecified formulation [place], [place] 10-22-1994 haemophilus influenz ae type b vaccine, PRP-OMP conjugate Koffi A [employer] Work Phone: [facility] Work Phone: 10-22-1994 Hib, unspecified [place], [place] 10-22-1994 measles, mumps and rubella virus vaccine [facility] 10-22-1994 poliovirus vaccine, inactivated [facility] 06-18-1994 hepatitis B vaccine, pediatric or pediatric/adolescent dosage oKffi Uriarte Work Phone: [facility] 06-18-1994 hepatitis B vaccine, unspecified formulation [place], [place] 04-16-1994 diphtheria, tetanus toxoids and acellular pertussis vaccine [facility] 04-16-1994 diphtheria, tetanus toxoids and pertussis vaccine [facility] 04-16-1994 haemophilus influenz ae type b vaccine, conjugate unspecified formulation [place], [place] 04-16-1994 haemophilus influenz ae type b vaccine, HbOC conjugate Brendan Blankenship PA-C Work Phone: [facility] 04-16-1994 haemophilus influenz ae type b vaccine, PRP-OMP conjugate Koffi Alison Uriarte Work Phone: [employer] Work Phone: 04-16-1994 Hib, unspecified [place], [place] 04-16-1994 poliovirus vaccine, inactivated [facility] 04-16-1994 trivalent poliovirus vaccine, live, oral [facility], [place] 02-12-1994 diphtheria, tetanus toxoids and acellular pertussis vaccine [place] 02-12-1994 diphtheria, tetanus toxoids and pertussis vaccine [facility] 02-12-1994 haemophilus influenz ae type b vaccine, conjugate unspecified formulation [facility] 02-12-1994 haemophilus influenz ae type b vaccine, HbOC conjugate Brendan Pattie TYSONC Work Phone: [facility] 02-12-1994 haemophilus influenz ae type b vaccine, PRP-OMP conjugate Koffi Clementeson Work Phone: [employer] Work Phone: 02-12-1994 Hib, unspecified [facility] 02-12-1994 poliovirus vaccine, inactivated [facility] 02-12-1994 trivalent poliovirus vaccine, live, oral [facility], [place] 01-08-1994 hepatitis B vaccine, pediatric or pediatric/adolescent dosage Koffi Uriarte Work Phone: [facility] 01-08-1994 hepatitis B vaccine, unspecified formulation [facility] , [place] 1993 diphtheria, tetanus toxoids and acellular pertussis vaccine [facility], [place] 1993 diphtheria, tetanus toxoids and pertussis vaccine [facility] 1993 haemophilus influenz ae type b vaccine, conjugate unspecified formulation [facility], [place] 1993 haemophilus influenz ae type b vaccine, HbOC conjugate Brendan Lilibethpp PA-C Work Phone: [facility] 1993 haemophilus influenz ae type b vaccine, PRP-OMP conjugate Koffi Alison Uriarte Work Phone: [employer] Work Phone: 1993 hepatitis B vaccine, pediatric or pediatric/adolescent dosage Koffi Uriarte Work Phone: [facility] 1993 hepatitis B vaccine, unspecified formulation [facility] , [place] 1993 Hib, unspecified [place], [place] 1993 poliovirus vaccine, inactivated [facility] 1993 trivalent poliovirus vaccine, live, oral [facility], [place] Payers Date Payer Category Payer Unknown 2020 Unknown MMO MMO [employer] [id number] 2020-Present [phone] [address] [place] [address] PPO [id number] 2019 Unknown [id number] 1993 Unknown [id number] 1993 Unknown [id number] 1993 Unknown [id number] 1993 Unknown [id number] 1993 Unknown [id number] 1993 Unknown [id number] 1993 Unknown [id number] 1993 Unknown [id number] 1993 Unknown [id number] 1993 Unknown [id number] 1993 Unknown [id number] 1993 Unknown [id number] 1959 Unknown [id number] Unknown [id number] Social History Date Type Detail Facility Start: 04-18-2020 End: 04-30-2023 Tobacco smoking status NHIS Never smoker [facility] Start: 04-18-2020 End: 04-30-2023 Tobacco use and exposure Never used [place] Start: 04-18-2020 End: 09-09-2021 Alcohol intake Current drinker of alcohol (finding) [place] Start: 09-19-2019 History SDOH Financial 5 [place] Start: 09-19-2019 History SDOH Food Worry 1 [place] Start: 09-19-2019 History SDOH Transport Med 2 [place] Start: 04-18-2020 Alcohol Comment occasionally [facility] [place], [place] Start: 1993 Sex Assigned At Not on file [place] Start: 04-20-2023 End: 04-30-2023 Exposure to SARS-CoV-2 (event) Not sure [place], [place] Never smoker Never smoker MI-XYCR-Idvk [place] Work Phone: Tobacco smoking status Never [facility] Sex Assigned At Female [facility] NEGATED: Highlighted row - - JR-SWCH-Ndqw [place] Work Phone: NEGATED: Highlighted rowStart: NINF History of tobacco use Passive smoker [facility] Work Phone: Functional Status Date Assessment Result Facility NEGATED: Highlighted row Functional performance Functional status health issues are not documented Disease TR-NYEI-Jdpz [place] Work Phone: Mental Status Date Assessment Result Facility NEGATED: Highlighted row Cognitive function [Interpretation] Cognitive status health issues are not documented Disease RO-XHYN-KtugJames [place] Work Phone: Clinical Notes 08-09-2017 to [...] 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 Patient Active Problem List Diagnosis Abnormal weight [...] 5/5 throughout all four extremities. Coordination Right: Vcnfxv-bf-xmmo normal.Left: Dvgwne-ev-mfhc normal. Physical Exam Eyes: Extraocular Movements: Extraocular [...] in 1 year documented in this encounter [facility] Work Phone: 11-25-2022 Note EXAMINATION: [...] authenticated by: HAYLIE RIVER Date: 2022-11-25 17:20 [facility] 04-16-2022 Note HNO ID: [id number] Author: Brendan Blankenship PA-C Service: ? 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 I, Brendan Blankenship, have reviewed this information as documented for accuracy and performed all elements of history taking, and edited the record as necessary. ROS: SEE HPI PE: GENERAL: well-appearing, in no acute distress LUNGS: Normal inspiratory effort IDENTITY ACCESS MANAGEMENT ARCHITECT: Normal external genitalia, no vaginal bleeding, small [...] Medical Decision Making Level: 3 - Low [facility] 03-24-2022 Miscellaneous Notes VM left w [...] move appt sooner. documented in this encounter [facility] 03-19-2022 Miscellaneous Notes LMP 02/11, +hpt. Assisted w initial OBV. Advised to take vitamin w folic acid. First trimester precautions provided. handbook sent in . documented in this encounter [facility] 02-03-2022 Miscellaneous Notes The following approved [...] medication MICHELLE: No documented in this encounter [facility] 09-09-2021 Note HNO ID: [id number] Author: Brendan Blankenship PA-C Service: ? 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 Portions of this record were documented by the Hand Deicer Element Winder. I, Brendan Blankenship, have reviewed this information as documented for accuracy and performed all elements of history taking, and edited the record as necessary. ROS: SEE HPI PE: GENERAL: well-appearing, in no acute distress LUNGS: Normal inspiratory effort IDENTITY ACCESS MANAGEMENT ARCHITECT: Small amount yellow mucus discharge, cervix NL. [...] Medical Decision Making Level: 3 - Low [facility] 07-04-2021 Note HNO ID: [id number] Author: 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 Service: ? Author Type: Nurse Practitioner Type: [...] Ectopic0 Multiple0 Live Births0 Comment: Menarche 10 Rn Iv Therapy History LMP: 06/07/2021 (Exact Date), Having periods Age at Menarche: Age at First : Age at Menopause: Rn Iv Therapy History Comments: Sexual Activity: Yes; Male; same [...] external genitalia normal, normal Bartholin's glands, urethra, [place]'s glands, no vulvar lesions, no cervical lesions, [...] type of detergents for washing undergarments, wiping xbgey-jm-jzyt, sleep in loose shorts without underwear, shower immediately after intercourse/exercise, make sure perineum is gently blotted dry before dressing. Avoid scratching, scented pads/tampons/toilet papers, cranberry juice, bubble baths, and intercourse until symptoms are relieved. NO douching. If you shave, use a new razor at least twice monthly. 5) Follow up one year or sooner as needed 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 APRN.JUSTINE [facility] 08-09-2017 History of Past i llness Narrative Problem Noted Date Resolved Date NO SHOW 08/09/2017 08/09/2017 documented as of this encounter (statuses as of 02/03/2022) [facility] History of Past illness Narrative* Problem Noted Date Resolved Date NO SHOW 08/09/2017 08/09/2017 documented as of this encounter (statuses as of 03/19/2022) [facility] History of Past illness Narrative* Problem Noted Date Resolved Date NO SHOW 08/09/2017 08/09/2017 documented as of this encounter (statuses as of 03/24/2022) [facility] + Plan note No data available for this section [facility] Acute vaginitis- Primary Vaginitis and vulvovaginitis, unspecified [facility] in this encounter [facility] Diagnosis Bleeding in early - Primary Unspecified hemorrhage in early , unspecified as to episode of care documented in this encounter [facility] note* Diagnosis Seizure (CMS/HCC)- Primary Other convulsions documented in this encounter [facility] Work Phone: History of Present illness Narrative* The patient states she has been doing well with her blood pressure control since the last visit. She has no comorbid illnesses. She has no significant interval events. * Symptoms: The patient is currently asymptomatic. * Less anxiety lately. Broke up with her boyfriend. 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 * BP is much improved on lisinopril. * Saw gyne for discharge. * was told she had BV and chlamydia. * took antibiotics, got better for a few weeks and now she is having discharge again and odor. no pelvic pain. [employer] Work Phone: History of Present illness Narrative* The patient states she has been doing well with her blood pressure control since the last visit. She has no comorbid illnesses. She has no significant interval events. * Symptoms: The patient is currently asymptomatic. * Less anxiety lately. Broke up with her boyfriend. * Working in [employer] at the [employer]. * BP is much improved on lisinopril. * Saw gyne for discharge. * was told she had BV and chlamydia. * took antibiotics, got better for a few weeks and now she is having discharge again and odor. no pelvic pain. [employer] Work Phone: Hospital Discharge instructions No data available for this section [facility] data available for this section [facility] Summary Purpose Family History No Family [...] FoundDocuments on File Type Date Recorded Patient Instrument Shop Supervisor Expl anation ACP-Advance Directive ACP-Power of Neurology Professor Documents on File Type Date Recorded Patient Instrument Shop Supervisor Expl anation ACP-Advance Directive ACP-Power of Neurology Professor Documents on File Type Date Recorded Patient Instrument Shop Supervisor Expl anation Advance Directive(s) 11/30/2015 2:19 PM Reason for Referral Status Reason Specialty Diagnoses / Procedures Referre d By Contact Referred To Contact Open Radiology Diagnoses Nonintractable generalized idiopathic epilepsy without status epilepticus (HCC) Procedures MRI BRAIN W WO CONTRAST Spike Garcia MD [address] [id number] Assessments Diagnosis Nonintractable generalized idiopathic epilepsy without status epilepticus (HCC) Diagnosis Seizure (HCC) Other convulsions Discharge Instructions * Attachments The following attachments cannot be sent through Care Everywhere. * Seizure (Lithuanian) documented in this encounter Additional Source Comments INFORMATION SOURCE (unrecogn ized section and content) DATE CREATED AUTHOR 01/11/2018 [facility] DATE CREATED AUTHOR AUTHOR'S ORGANIZ ATION 04/19/2020 [facility] DATE CREATED AUTHOR AUTHOR'S ORGANIZ ATION 05/11/2020 [facility] DATE CREATED AUTHOR AUTHOR'S ORGANIZ ATION 12/29/2020 [facility] DATE CREATED AUTHOR AUTHOR'S ORGANIZ ATION 04/14/2022 [facility] DATE CREATED AUTHOR AUTHOR'S ORGANIZ ATION 04/20/2022 [facility] DATE CREATED AUTHOR AUTHOR'S ORGANIZ ATION 08/11/2022 [facility] DATE CREATED AUTHOR AUTHOR'S ORGANIZ ATION 11/29/2022 [facility] DATE CREATED AUTHOR AUTHOR'S ORGANIZ ATION 12/27/2022 [facility] DATE CREATED AUTHOR AUTHOR'S ORGANIZ ATION 05/02/2023 [facility] tals Ambulatory DATE CREATED AUTHOR AUTHOR'S ORGANIZ ATION 07/16/2023 [facility] EPIC Reason for Visit (unrecogniz ed section and content) Status Reason Specialty Diagnoses / Procedures Referre d By Contact Referred To Contact Closed EEG Diagnoses Generalized idiopathic epilepsy and epileptic syndromes, not intractable, without status epilepticus Procedures EEG 16+ CHANNEL TELEMTERY 24HR Spike Garcia MD [address] [facility] [address] [place] [address] [facility] [address] [place] [address] Status Reason Specialty Diagnoses / Procedures Referre d By Contact Referred To Contact Closed Radiology Diagnoses Generalized idiopathic epilepsy and epileptic syndromes, not intractable, without status epilepticus Procedures MRI-BRAIN WO & W CONTRAST Spike Garcia MD [address] [facility] [address] [place] [address] [facility] [address] [place] [address] Reason Comments Seizures Seizure like activit y [...] or prosecute any alcohol or drug abuse patient.[facility] HospitalIn the event this information is protected by the Federal Confidentiality of Alcohol and Drug Abuse Patient Records regulations: The Federal rules restrict any use of the information to criminally investigate or prosecute any alcohol or drug abuse patient.[facility] HospitalIn the event this information is protected by the Federal Confidentiality of Alcohol and Drug Abuse Patient Records regulations: The Federal rules restrict any use of the information to criminally investigate or prosecute any alcohol or drug abuse patient.[facility] Care Teams (unrecognized sec tion and content) Ocular Pathologist Relationship Specialty Start Date End Date Koffi Uriarte MD PCP - General Family Practice 08/17/16 Ocular Pathologist Relationship Specialty Start Date End Date Koffi Uriarte MD PCP - General Family Practice 08/17/16 Ocular Pathologist Relationship Specialty Start [place] [address] [place] [address] PCP - General 08/14/20 [place] [address] [place] [address] PCP - MMO ACO PCP 02/16/23 FOR [...] BE BASED ON THE PRIMARY CLINICAL RECORDS. [facility] [employer] [facility]. provides no warranty or guarantee of the accuracy or completeness of information in this document.
[2023-07-28 13:56] VITALS: BP 113/67; PULSE 68
== END 2023-07-28 14:30 | disposition home or self-care (01) ==
LOC: FBCO 07:12 → FBC 13:40
PROVIDERS: Visit Provider Obstetrics & Gynecology
DX: O10.919 Unspecified pre-existing hypertension complicating pregnancy, unspecified trimester (principal); O36.60X0 Maternal care for excessive fetal growth, unspecified trimester, not applicable or unspecified; Z3A.00 Weeks of gestation of pregnancy not specified
CPT/HCPCS: 59025; 87081

== ENCOUNTER 2023-07-28 20:03 | Outpatient (REF) | payer OTHER, SELFPAY ==
--- OUTSIDE RECORDS SUMMARY | 2023-07-28 20:09 | XMS_ITS | CCD ---
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 Role Phone Ruiarte, Koffi A Unavailable Unavailabl e Uriarte, Koffi [...] Primary Care Provider Uriarte, Koffi A Unavailable [phone] Unavailable Unavailable Unavailable Unavailable Unavailable Unavailable Koffi Uriarte MD Primary Care Provider Unavailable Unavailable Koffi Uriarte MD Primary Care Provider Milagro Son Primary Care Physician Unavail able Dane Hassan Attending Unavailable Dane Hassan Admitting Unavailable BRENDAN BLANKENSHIP Attending Unavailable URIARET, KOFFI A Primary Care Unavailabl [place] [...] Unavailable ELSIE ., DR GONZALEZ Attending Unavailable CARLTON, DR HAYLIE Garcia Consulting Unavailable ELSIE ., DR GONZALEZ Consulting Talon Uriarte, Dr. Koffi Rosas Primary Care Dario Uriarte, Dr. Koffi Rosas Attending Dario Uriarte, Dr. Koffi Rosas Referring Koffi Oquendo MD Primary Care Provider Koffi Uriarte MD Unavailable NEDRA CALDERON Attending Unavailable KOFFI URIARTE Primary [facility] Unavailabl SHIMA Joyce Attending Unavailable SHIMA RODAS Attending Unavailable SHIMA RODAS Attending Unavailable SHIAM RODAS Attending Unavailable Allergies Allergy Classification Reported Allergen(s) Allergy Type Date of Onset Reaction(s) Facility (1 source) No Known Medication Allergies; Translations: [No Known Medication Allergies] Propensity to adverse reactions (disorder) [facility] Rep[facility] Medications Current Medications Medication Drug [...] # 120 tab(s), Refills(s) 0, Pharmacy: [id number] Start Date: 06/05/19 Status: Ordered ondansetron [...] 10-02-2022 10-02-2022 Episodic Unclassified (1 source) R07.9 59948/8 Onset: 05-04-2017 Unclassified (5 sources) Patient encounter status; Translations: [Encounter for audiology evaluation] NEGATED: Highlighted row has not occurred!Residual codes; unclassified (17 sources) Disease Episodic Results Test Name Value Interpretation Reference Range Facility DHEA SERUMon 11-20-2022 Dehydroepiandrosterone (DHEA) 656 ng/dL Normal 31-701 [facility] Comment on above: Performed By: #### D LAMAR. #### [facility] [address] [place] [address] Dr. Vish Brown ANTI-MULLERIAN HORMONEon Anti-Mullerian Hormone (AMH) 4.47 ng/mL Normal [facility] Comment on above: Result Comment: For assays employing antibodies, the possibility exists for interference by heterophile antibodies in the samples.1 1.Favio Campos Interferences in Immunoassays - still a threat. Clin. Chem. 2000; 46: 9520-3053. This test was developed and its performance characteristics determined by [employer]. It has not been cleared or approved by the Food and Drug Administration. Reference Range: Females 26 - 30y: 1.03 - 11.10 Median 4.20 AMH concentrations of >= 1.06 ng/mL is correlated with a better response to ovarian stimulation, produced more retrievable oocytes and higher odds of live according to Gabi et al. Fertility and Sterility. 2010: 94:2956-3572. The current AMH test method correlates with [...] AMH-secreting ovarian tumor. Performed By: #### L [facility] #### [facility] [address] [place] [address] Dr. Vish Brown DHEA-SULFATEon 11-17-2022 DHEA-Sulfate 449.0 ug/dL Critically high 84.8-378.0 [facility] Comment on above: Performed By: #### L [facility] #### [facility] [address] [place] [address] Dr. Vish Brown ESTRADIOLon 11-17-2022 Estradiol 34.3 pg/mL Normal [facility] Comment on above: Result Comment: Adul t Female: Follicular phase 12.5 - 166.0 Ovulation phase 85.8 - 498.0 Luteal phase 43.8 - 211.0 Postmenopausal <6.0 - 54.7 1st trimester 215.0 - >4300.0 Ele ECLIA methodology Performed By: #### E CHLOE #### [facility] [address] [place] [address] Dr. Vish Brown FSHon 11-17-2022 FSH 6.1 mIU/mL Normal [facility] Comment on above: Result Comment: Adul t Female: Follicular phase 3.5 - 12.5 Ovulation phase 4.7 - 21.5 Luteal phase 1.7 - 7.7 Postmenopausal 25.8 - 134.8 Performed By: #### L [facility] #### [facility] [address] [place] [address] Dr. Vish Brown LUTEINIZING HORMONE (LH)on 0 11-17-2022 LH 4.5 mIU/mL Normal [facility] Comment on above: Result Comment: Adul t Female: Follicular phase 2.4 - 12.6 Ovulation phase 14.0 - 95.6 Luteal phase 1.0 - 11.4 Postmenopausal 7.7 - 58.5 Performed By: #### L SUHAS #### [facility] [address] [place] [address] Dr. Vish Brown PROGESTERONEon 11-17-2022 Progesterone 0.8 ng/mL Normal [facility] Comment on above: Result Comment: Foll icular phase 0.1 - 0.9 Luteal phase 1.8 - 23.9 Ovulation phase 0.1 - 12.0 First trimester 11.0 - 44.3 Second trimester 25.4 - 83.3 Third trimester 58.7 - 214.0 Postmenopausal 0.0 - 0.1 Performed By: #### P TASNEEM #### [facility] [address] [place] [address] Dr. Vish Brown CBC AUTO DIFFon 11-16-2022 BASO # 0.0 103/ul Normal 0.0-0.1 [facility] Comment on above: Performed By: #### L BRUNA #### [facility] [address] [place] [address] Dr. Vish Brown Basophils/100 WBC (Bld) 0.5 % Normal 0.2-2.0 [facility] Comment on above: Performed By: #### L BRUNA #### [facility] [address] [place] [address] Dr. Vish Brown EO # 0.3 103/ul Normal 0.0-0.7 [facility] Comment on above: Performed By: #### L SUHAS #### [facility] [address] [place] [address] Dr. Vish Brown Eosinophils/100 WBC (Bld) 4.0 % Normal 0.9-7.0 [facility] Comment on above: Performed By: #### L BCL #### [facility] [address] [place] [address] Dr. Vish Brown Erythrocyte distribution width (RBC) [Ratio] 12.0 % Normal 11.0-15.0 [facility] Comment on above: Performed By: #### L BCL #### [facility] [address] [place] [address] Dr. Vish Brown Hematocrit (Bld) [Volume fraction] 39.1 % Normal 36.0-48.0 [facility] Comment on above: Performed By: #### L BCL #### [facility] [address] [place] [address] Dr. Vish Brown Hemoglobin (Bld) [Mass/Vol] 13.0 g/dL Normal 12.0-16.0 [facility] Comment on above: Performed By: #### L BCL #### [facility] [address] [place] [address] Dr. Vish Brown IG # 0.02 10e3/ul Normal 0.00-0.03 [facility] Comment on above: Performed By: #### L BCL #### [facility] [address] [place] [address] Dr. Vish Brown IG % 0.3 % Normal 0.0-0.5 [facility] Comment on above: Performed By: #### L BCL #### [facility] [address] [place] [address] Dr. Vish Brown LYMPH # 2.5 103/ul Normal 1.2-3.8 [facility] Comment on above: Performed By: #### L BCL #### [facility] [address] [place] [address] Dr. Vish Brown Lymphocytes/100 WBC (Bld) 32.4 % Normal 20.5-60.0 [facility] Comment on above: Performed By: #### L BCL #### [facility] [address] [place] [address] Dr. Vish Brown MANUAL DIFF REQ NO Normal [facility] Comment on above: Performed By: #### L BRUNA #### [facility] [address] [place] [address] Dr. Vish Brown MCH (RBC) [Entitic mass] 29.9 pg Normal 26.7-34.0 [facility] Comment on above: Performed By: #### L BRUNA #### [facility] [address] [place] [address] Dr. Vish Brown MCHC (RBC) [Mass/Vol] 33.2 g/dL Normal 29.9-35.2 [facility] Comment on above: Performed By: #### L BRUNA #### [facility] [address] [place] [address] Dr. Vish Brown MCV (RBC) [Entitic vol] 89.9 fL Normal 81.0-99.0 [facility] Comment on above: Performed By: #### L BRUNA #### [facility] [address] [place] [address] Dr. Vish Brown MONO # 0.6 103/ul Normal 0.3-0.8 [facility] Comment on above: Performed By: #### L BRUNA #### [facility] [address] [place] [address] Dr. Vish Brown Monocytes/100 WBC (Bld) 7.4 % Normal 1.7-12.0 [facility] Comment on above: Performed By: #### L BRUNA #### [facility] [address] [place] [address] Dr. Vish Brown NEUT # 4.3 103/ul Normal 1.4-6.5 [facility] Comment on above: Performed By: #### L BCL #### [facility] [address] [place] [address] Dr. Vish Brown Neutrophils/100 WBC (Bld) 55.4 % Normal 43.0-75.0 [facility] Comment on above: Performed By: #### L BRUNA #### [facility] [address] [place] [address] Dr. Vish Brown Platelet mean volume (Bld) [Entitic vol] 9.0 fL Critically low 9.5-13.5 [facility] Comment on above: Performed By: #### L [facility] #### [facility] [address] [place] [address] Dr. Vish Brown PLT 277 103/ul Normal 150-450 [facility] Comment on above: Performed By: #### L BCLH #### [facility] [address] [address] [address] Vish Brown RBC 4.35 106/ul Normal 4.20-5.40 [facility] Comment on above: Performed By: #### L BCL[facility] #### [facility] [address] [address] [address] Vish Brown WBC 7.7 103/ul Normal 4.0-11.0 [facility] Comment on above: Performed By: #### L [facility] #### [facility] [address] [address] [address] Vish Brown FREE T4on 11-16-2022 Free T4 [Mass/Vol] 1.08 ng/dL Normal 0.76-1.46 [facility] Comment on above: Performed By: #### F T4 #### [facility] [address] [place] [address] Dr. Vish Brown GLYCOHEMOGLOBIN A1Con 2022 ADA RECOMMENDATION SEE BELOW Normal [facility] Comment on above: Result Comment: ADA RECOMMENDED LIMIT 4.0 - 6.0 ADA THERAPEUTIC TARGET < 7.0 ACTION SUGGESTED > 7.0 Performed By: #### A 1C #### [facility] [address] [place] [address] Dr. Vish Brown Glucose [Mass/Vol] 94 mg/dL Normal [facility] Comment on above: Performed By: #### A 1C #### [facility] [address] [place] [address] Dr. Vish Brown HbA1c (Bld) [Mass fraction] 4.9 % Normal 4.5-6.2 [facility] Comment on above: Performed By: #### A 1C #### [facility] [address] [address] [address] Vish Brown PREG QUANT HCGon 11-16-2022 HCG QUANT <1 Normal [facility] Comment on above: Performed By: #### P REGQNT, TSH #### [facility] [address] [address] [address] Vish Brown HCG RANGE SEE BELOW Normal [facility] Comment on above: Result Comment: 5-50 0.2-1 WEEK 50-500 1-2 WEEKS 100-5,000 2-3 WEEKS 500-10,000 3-4 WEEKS 1,000-50,000 4-5 WEEKS 10,000-100,000 5-6 WEEKS 15,000-200,000 6-8 WEEKS 10,000-100,000 2-3 MONTHS Performed By: #### P REGQNT, TSH #### [facility] [address] [place] [address] Dr. Vish Brown TSHon 11-16-2022 TSH 2.030 uIU/mL Normal 0.358-3.740 [facility] Comment on above: Performed By: #### P REGQNT, TSH #### [facility] [address] [place] [address] Dr. Vish Brown 19-49 Yearson 07-31-2022 19-49 [...] Occasional alcohol (more content not included)... Normal [employer] Tobacco Screening.on 023 Adult depression screening assessment No [facility] Work Phone: Fall risk assessment a) No falls within the last year [facility] Work Phone: Tobacco use status CPHS b) No M [facility] Work Phone: B-HCG SerPl-aCncon 2 HCG.beta subunit Qn m[IU]/mL Normal <5.0 [facility] Comment on above: Order Comment: Speci men Type: BLOOD SPECIMENOrdering Facility: [facility] Address: [address] [place] [address] Result Comment: Soledad kyle Performed By: #### G CCT #### [place] [address] BACTERIAL VAGINOSIS AMPLIFIC ATIONon 04-16-2022 Lactobacillus crispatus+gasseri+jense james + Gardnerella vaginalis + Atopobium vaginae rRNA HUMERA+probe Ql (Vag fld) Negative Normal Negative for bacterial vaginosis [facility] Comment on above: Order Comment: Speci men Type: SWAB Ordering Facility: [facility] Address: [address] [place] [address] Performed By: #### C VTV, BVAMP #### [facility] CLIA [id number] [address] [place] [address] [facility] C. trachomatis+N. gonorrhoea e DNA HUMERA+probe Ql (Unsp spec)on 04-16-2022 C. trachomatis DNA HUMERA+probe Ql (Unsp spec) Negative Normal Negative for Chlamydia trachomatis by amplificaton [facility] Comment on above: Order Comment: Speci men Type: SWAB Ordering Facility: [facility] Address: [address] [place] [address] Performed By: #### C VTV, BVAMP #### [facility] CLIA [id number] [address] [place] [address] [facility] N. gonorrhoeae DNA HUMERA+probe Ql (Unsp spec) Negative Normal Negative for Neisseria gonorrhoeae by amplification [facility] Comment on above: Order Comment: Speci men Type: SWAB Ordering Facility: [facility] Address: [address] [place] [address] Performed By: #### C VTV, BVAMP #### [facility] CLIA [id number] [address] [place] [address] [facility] MITCH / TRICHOMONAS AMPLIF ICATIONon 04-16-2022 MITCH / TRICHOMONAS AMPLIFICATION MITCH SPECIES GROUP RNA: Negative for Mitch species MITCH GLABRATA RNA: Negative for Mitch glabrata TRICH VAG AMPLIFICATION RNA: Negative for Trichomonas vaginalis by amplification Normal [facility] Comment on above: Performed By: #### C VTV, BVAMP #### [facility] CLIA [id number] [address] [place] [address] [facility] CNCOon 04-16-2022 CNCO Letter Text Letter Text Normal [facility] CNOVon 04-16-2022 CNOV Office Visit (OBGA ) PRINCESS CANTU ([id number]) 1995 F Date Time Provider Department 04/16/22 8:00 AM BRENDAN BLANKENSHIP [facility] During your visit today, we recorded the [...] History Social History Narrative Single No 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 I, Brendan Blankenship, have reviewed this information as documented for accuracy and performed all elements of history taking, and edited the record as necessary. 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 #:[id number] BACTERIAL VAGINOSIS AMPLIFICATION [SQBVAMP] Order #: [id number]. #:[id number] GC/CHLAMYDIA DNA DET [SQGCCAMP] Order #: [id number]. #:[id number] SYPHILIS TOTAL W/REFLEX [SQSYPHTX] Order #: [id number] FUTURE HIV 1 2 COMBO(AG/AB),WITH REFLEX TO DIFFERENTIATION [SQHIV12] Order #: [id number] FUTURE HEP C AB IA W/CONF SCRN [HJDYTO6B] Order #: [id number] FUTURE HEP B SURF AG SCRN [SQHBSAG] Order #: [id number] FUTURE Prescriptions as of 04/16/2022 - lamoTRIgine [...] Status:Closed by BRENDAN BLANKENSHIP on 04/16/22 [facility] HBV surface Ab IA Ql (S)on 0 04-16-2022 HBV surface Ag Ql (S) Negative Normal Negative [place] Comment on above: Order Comment: Speci men Type: BLOOD SPECIMENOrdering Facility: [facility] Address: [address] [place] [address] Performed By: #### G CCT #### [place] [phone] HCV Ab Ser Qlon 04-16-2022 HCV Ab Ql (S) Negative Normal Negative [facility] Comment on above: Order Comment: Speci men Type: BLOOD SPECIMEN Ordering Facility: [facility] Address: [address] [place] [address] Result Comment: The result suggests no evidence of active infection with Hepatitis C virus. Should recent infection be suspected, repeat testing may be considered 4-6 weeks after this draw. Performed By: #### 1 [id number] #### [facility] CLIA [id number] [address] [place] [address] [place] HIV 1+2 Ab IA Qlon 2 HIV 1 and 2 Ab IA.rapid Nom Normal [facility] Comment on above: Order Comment: Speci men Type: BLOOD SPECIMENOrdering Facility: [facility] Address: [address] [place] [address] Result Comment: Test not indicated. Performed By: #### G CCT #### [place] [phone] HIV 1+2 Ab+HIV1 p24 Ag IA Ql Non-Reactive Normal Nonreactive [facility] Comment on above: Order Comment: Speci men Type: BLOOD SPECIMENOrdering Facility: [facility] Address: [address] [place], [place] [address] Performed By: #### G CCT #### [place] [phone] HIVINT Normal [facility] Comment on above: Order Comment: Speci men Type: BLOOD SPECIMENOrdering Facility: [facility] Address: [address] [place] [address] Result Comment: No e vidence of HIV-1 or HIV-2 infection. Should recent infection be suspected, repeat testing may be considered 2-3 weeks after this draw. [place] Rev. Code 3701.243(E): This information has been [...] diagnoses. Performed By: #### G CCT #### [place] [phone] Reagin and Treponema pallidu m IgG and IgM [Interp]on 04-16-2022 SYPHILIS INTERPRETATION Cannot exclude r ecent Treponemal infection if specimen collected within 7-10 days after appearance of suspect lesions or 2-3 weeks after an exposure. Clinical correlation is required. Normal [facility] Comment on above: Order Comment: Speci men Type: BLOOD SPECIMENOrdering Facility: [facility] Address: [address] [place] [address] Performed By: #### G CCT #### [place] [phone] T. pallidum IgG+IgM IA Ql (S) Non-Reactive Normal Nonreactive [facility] Comment on above: Order Comment: Speci men Type: BLOOD SPECIMENOrdering Facility: [facility] Address: [address] [place] [address] Performed By: #### G CCT #### [place] [phone] Coding Summary.on 03-27-2022 Coding Summary. CD:[id number] Gh 0bWw+PGhlYWQ+OP3RGKUcE 42tbRAnyP6YW0lLKO6RHOA CWPAWJZ6PWD0dyBX4GKppT 2VybiAv IbchdTNiJQ81KVg5NXK6lU nqZQmqaS9ntRWxN3l7KaXf BR86tI99AXkuATAzFfC5St ZpbjsgbWFy J0xdChMbhKJxSbe+PHRhYm xlIHdpZHRoPScxMDAlJyBz yMgyMS0kCn8vRVBsSDRbkS xhcHNlOiBj n0tvKWUnHYnrGF2eiNvuP4 FpmYK0HMMcy2s7Ek71pOA+ AMJwAHQ1rClaKArou891Pe Yyg7tuOEJ4 yTFyPPpbKFV3K09nh5B1LT QyBRBpBZO5uTP7gW5zyDus rudaX7EzgWTsLdO6XNI2bH TbyP3zwGmd lexxiE2tQjq+Q90SMA5VAD NQUY6EGix8O7FlAyuixFU+ SW61FSGcYC61yZPzlZSnb0 gyuDl2VdWj XHHbGYT9kOrvWLpvc0MjQW DkA81kxAMtn3I5PYLmmCla nCMgFaBjrMW9zH8zFNqmpq kva1aozjrz Xxigo4zait93eD91W24bFH mrMNBwRRK6XJWzRZHunXfv ay4xiX0vJm3+CHecl4emg9 bziDh1VgKx TISsboMfpGtzBJA1m7AaEt 22X1TjwHyov8HzTgq6tg10 iEVef1Q4hFP0BCloGLYroB 8lGIczObV2 BLXbDvLkkB88vHXeTYrqLl 0huVckhKlfER1kZYCdfnpr LGLkvA9jXWBvgWDozJrySW 4wNTBpbjtm u978ZbSfGXQ1SAEnqDOcS1 ItuE6iNhVmHEJnSYScP3Rq hQWnKBsiJ458OQuhOnB6WM KpmbBhJ2Eu IHLdrOsmBqW2y6T6Nj8Vb2 NazqpwMCR6KJjcOHO4EsY3 UuUtRpK4F9NcUmk8DUZwxH ewIZ1kI9Jn ZHWaszqacudczBM5DASuFT HmyT90dKMhGOyzMw9qq9A5 s252LTKuMVBseQ85Jk1olZ ogMTBwdCBU rM8uicqwt6umpekaTxFaNJ IvYSh7OVm9VHQpfNlyEiTd CNR8HgT4DGW2dYZnlI3kiM vpuvvlnG5z Oyc+Z86paP4iZID5SKO0br jjOFCjweXdQW00OP46K9Zv PjwvdGFibGU+PGRpdiBzdH axBM4pElIq z9tkk8XjVMajG8NxCXBuMI boPuw5FRXqFPQ7nQG8yM9w HKTmZCvhh1Z8aKY1F9Yfza Iaou9yy2fu RDKfJMmwE75zyAIxu1V0OC FpnDR6BEAxrTueCrTdwO21 Oyc+KZPxtGspc8FcWxysq3 pli2xxiQx5 BgDkKXDwgnQfzOcfVNG2n1 GwYl56H82iLOujGROrAAVl UZYkYTWajVqeyt0kyN7cUj 8+PGNvbCB3 aRX5sN6nDOVnXhW2WSpkK2 80JgItsWSaSchfm6per3te gJb9YtTgFAKejjLqgCzjYH B4o5XuBv73 E67wUMnfEDEyMMXqBAJgYJ LejShfua1reU3yFv2+PC9j c6fbhk82iD25kNL+PHRkIH T3ySkyUFlk RNBzeS1dAGcgCwG2CLZtZe UvuQ51gNRbNLyjKf6wdTqv sGfcSA3tGLQxsddyi541Ny Umk9bxUIFv qXYjRUphATS9Z01yr1F3PB OnBBTmOLH6qMC0eS3hzIhg bjogbGVmdDsgdmVydGljYW xrVRrfW229 IHRvcDsnPlBhdGllbnQgTm VpKBr7S8BvFry1YRYdeWyk AB0ajVFzLLgjQq4nrWztlP wsML1dUXKm nwjfv902ErXuc9dgNSNbqF HqWNpbACL1H63yw0M9AVUd WNLrNYL0mYZ9hJ1xcLyimf ogbGVmdDsg gwHefZjyHTyjXChsR361WH RvcDsnPkJpcnRoIERhdGU6 II70DW80tWAsl7P3wTB2O5 BhZGRpbmct wgypiED4YZPoCQBwaZ21Fs 9qqZpkEc8pTMDkRRL0SCYp gUKcQ1UyqF4xSuTzQSLiRH RyY7HbfDQm BDpvP369JTavLxT5HDRtfa VaO5LkGDTfqFmeOxP5j3Y0 Jo2JM1G1PX48LU82tDToh7 N0cRB5A9Uk JZMmhhaztzteyYB8IXEaCT RooJ40Iz1gnYjgBt6yIBUe GNL8OBMrnOZeQ0EiiB7kGe AjMDAwMDAw V4CwcIQwWJgpV124ZMrgFd T7RUDyeuBhN0PnXUBgfUde FkH0x1I5Dx4VXPx5QH42OL 44tQWew0A2 yYX2J4LmAZQbttaqpphciY E7PYIzTNSkmX43Lb4zjQcw Tz2iQEOpINZ7YIErnGCzS9 MbfG1eNoAy LJSmVAFiK0FvcZLuRObcF8 85HOnwXqA7JOQeguGeI9Uy CACvnSbqCkE5n5O0Yw6QHW VwHH78ZMV5 pKD9BQ35MM60M6AeCgdghV FibGU+PHRhYmxlIHdpZHRo NCdtNGJzKkMesRlwQR9tUd 9yZGVyLWNv iJezhJXdJsDwy3snSIVmQF dhUP1bnVomT8TqlEJ1GPWf x1z8If90Q31nG9WzdWP+PG FmjRI8tEH5 uW4nZcWsGoZ0RHpmL635Vp QfvKVaOajzi4qto7maiXi3 YiL4TAJshcTkdStjTYV7d2 MqNk30U39a IHdpZHRoPSIxNSUiIHZhbG othm3owX6fGt5+PGNvbCB3 nLQ5jO4eUnMwTvL2OSccJ4 49InRvcCIv Tkzqr9kvv2oteEh8UwTtPN AtafPhuKxyWTP3c7EyKk75 S7QzzKkgt8BaGig8vq71nY Pdj5J6wDY7 V4EuOSJwnblfsWWnpOmmWJ 7lKUPiatpwFQQgtT0vBYCy S4j3RpNyBvF0DDshE6Avek H3NTCzrZSj YQtdLPC5Y32ym3A1MTAfTG ZdKLI8fFV9eE8fxTdvwhix bGVmdDsgdmVydGljYWwtYW eyE580ZVWe cLglIEUqoW0zGLVuyNCymI ssEI5jHEWloofbIcEBR8dp SZ3FA9IKHUA6G5QiRiu3JC LsrDmeNI2k pUPzBQrtTm7xrWcwqChgCG 4bQRLvtkpwLMWqmJ2zTZFk uRAvfXfdLL9cSWRgawbpy7 14ZrVmWZQ2 QZAgxTKjF4WkgM1tYkLvIN AfDBEuQ1JikFHhFNohP845 DSgxUtJ9TMQsduDcS6GvEX FsaWduOiB0 c9G6Im6yCh4nZs0wIZc9CT 27IY87mJYfu6P7yFP1Z5Be CATljwnnpuoplHX3SBSoHO FekF84gZTt DFlnXx3yw0J1l194ZQHnOD AhtO79Tr0nrAobJLLcxJTU nL2gxcntu0fyyphqTvQwOS HcGVn4KKz5 GZWwoEdlDnGsWGB6PgZ6GO O8qAVqxC1hhFbnwthjwK6z Oyc+FxlcZYNbleN1H6EbHd n6YHZyzNlc SG7ehXDuDNaqTw2mpLvueB zkBI4cEHAlzhnrEEJfcY5q JEXokWNvpEwuZN4bQUXdiy rhy816WqVy JGC8CDFesCGhZ4QmpE3jNj KfDBKtAZUaZ1BftWZfCRks T350AVaoMkV9JRBddqUrK0 FsLWFsaWdu KeW1w7M8Gp0IGY2ewZJ5A2 EeWfd3NFGdnRzfTL6suTEr EBjaYg1fvKmldFlsIH7mTE BpbjtwYWRk jV7eZNTsqYGysIgbKQ8vBQ Rrtnkuk724PsUhPST3XUHt eTXnQ0XgkX3jYiJnZGIkUZ OtM1SvsCRb CWciD475DOgqQrP8SGMtha HvI9VwVEZieTukCiP5d7T7 Nx8TfFTqBNMpYD02DI64LA 20T5YpWbws dGFibGU+PHRhYmxlIHdpZH NzNVscBAByAoZmwQkpAI1a Mj5gLRQaABSfgDokwXKwWg Iyd7gdDUXj DFfqLK2hgRaoR9FdwCA4VL Abe5p7Us47D66vG2LgrYU+ IKBmcJO7vBZ4iZ2cQsYyEi D4DIqjU577 OrUpwWDvWjubu8fxm8fkkZ i2UiTwTMJjoiFkkKbdPEW5 m1RkXa00H59kNEmxUMCbJM IyMCUiIHZh fXoczb0gvL3tMh3+PGNvbC K1gSN8yA3bFgJePcT3WGbh I708EcBrlFOyDfdhY68vJ2 JvdXA+PHRy Ubb1DJNgnWwiTH4msTPfET cvAy8oXUY4WuQxVjUrLGup R8MyDQSyqeetrecfuMC9MY NrYOBnlL00 Rd0ulZpvIy7mXFBnESW1II YayDCaK5UdnE5cDfRoXKEd INMsK5XgkIDzUXbaJ032OU tzCdB5YHVp caUiD9OiXXUwuUhyMlQ3a9 R6Je8GtVfswVRfPL1bTcKd KYk3U5JvNac9SSGjhZnmAJ 0ncGFkZGlu Ee8rcBtffKhrAS9sUNZhpe nkf391XqVvq3olAHPjmZKh XZhdGCN1L02hu2F6ZBSvJX OqMZR0bSG7 aK4bbByifcvkdRRzySjbtx GcmMkkVIhvDYhzF915NMMb lEatCmLXIsu9J3CuDek6KF ZexFosLV7p oJWcLMtdDr1wlTfvyFqsGU 2hXCIinirxj596XdNat0us LIAfcWUfCUegOCT4C53jt3 R6MCIrMSZr TLJ1bLB6tW3xrRtzgfkbpT VmdDsgdmVydGljYWwtYWxp O928GQFocEefDn6UAkh5V7 IfQdf0YFMh iPjeXR4fqNDzKIoaWv1puO zizAwqMY3nDTJwkkmbw744 SnMat5edVWTjhMCqJTtsCK A8V90iu6L7 FDAjYVGqFWT6jBX3wP1oxY lnbjogbGVmdDsgdmVydGlj SLcoURntI816UOBdrBlrGx BheWVyOjwv dGQ+TE64pt57O0OwSdgjFf d6COLwCXE1gTI6zC9fGOXt LNcyb6W1iJW3R5XlnvCnju 5ty4bpKJLl ZTog (more content not included)... Normal [facility] BhCG Quanton 03-24-2022 HCG.beta subunit Qn 1 m[IU]/mL Normal 1-3 [facility] Comment on above: Result Comment: GEST ATIONAL AGE HCG RANGE (mIU/mL) NON- <1-3 0.2-1 WEEKS 5-50 1-2 WEEKS 50-500 2-3 WEEKS 100-5,000 3-4 WEEKS 500-10,000 4-5 WEEKS 1,000-50,000 5-6 WEEKS 10,000-100,000 6-8 WEEKS 15,000-200,000 8-12 WEEKS 10,000-100,000 Performed By: #### 2 [id number] #### [facility] [address] [place] [address] CHEMISTRYOrdered By: SYSTEM SYSTEM on 03-24-2022 HCG.beta subunit Qn 1 m[IU]/mL Normal 1 - 3 mIU/mL FTM C Remisol CNPDebora 03-24-2022 [facility] Telephone ([facility]) PRINCESS CANTU ([id number]) 1995 F Date Time Provider Department 03/24/22 KAVITA SWEET [facility] During your visit today, we recorded [...] Fully Assessed Reason for Visit: Bleeding With [69560] Primary Visit Diagnosis:Bleeding in early [O20.9] Order(s):HCG QUANTITATIVE [SQHCGQT] Order #: [id number] FUTURE Prescriptions as of 03/24/2022 - metroNIDAZOLE [...] Status:Closed by BRENDAN SOUZA on 03/24/22 Normal [facility] Consent for Treatmenton Consent for Treatment [id number] 0CD:127 [facility] Physician Orderon 03-24-2022 Physician Order [id number] 0CD:127 [facility] CNPNon 03-19-2022 CNPN Telephone ([facility]) ALONDRAANNABELN Alison ([id number]) 1995 F Date Time Provider Department 03/19/22 GEORGIA DWYER [facility] During your visit today, we recorded the [...] BMI 30-34.9 [E66.9] 07/04/2021 Encounter Status:Closed by AMRY ONOFRE on 03/19/22 Normal [facility] Office Visit (Neuro-General) on 12-24-2021 [...] or bowel/bladder incontinence. She was taken to [facility] in [place]. She had lab work and a CT [...] DAILY. Vitals Vital Signs Recorded: 24Dec2021 11:32AM Wztgszaouhb81.1 F Heart Rate54 Dphaqhrm326 Byfyecdvl87 Height5 ft 9 in Pqnkfa849 lb 1.6 oz BMI Lschcsearw23.03 kg/m2 BSA Calculated2.11 Tobacco Useb) No Fall Screeninga) No falls within the last year O2 Anwnvgxoym870, RA Physical Exam Constitutional: General appearance: no [...] Nov 17 2021 1:34PM EST (Author) Normal [employer] Tobacco Screening.on 022 Adult depression screening assessment No [facility] [email or web address] Phone: Fall risk assessment a) No falls within the last year [facility] [email or web address] Phone: Tobacco use status CPHS b) No M P-[facility] [email or web address] Phone: Bact Vag Amplificationon Bact Vag Amplification Positive Criticall y abnormal Negative for bacterial vaginosis [facility] Comment on above: Performed By: #### G CCT #### [facility] [address] [place] [id number] CNOVon 09-09-2021 CNOV [facility] PRINCESS CANTU ([id number]) 1995 F Date Time Provider Department 09/09/21 10:00 AM BRENDAN BLANKENSHIP [facility] During your visit today, we recorded [...] History Social History Narrative Single No 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 Portions of this record were documented by the [employer]. I, Brendan Blankenship, have reviewed this information as documented for accuracy and performed all elements of history taking, and edited the record as necessary. 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 [...] Order(s):MITCH / TRICHOMONAS AMPLIFICATION [SQCVTV] Order #: [id number] BACTERIAL VAGINOSIS AMPLIFICATION [SQBVAMP] Order #: [id number] GC/CHLAMYDIA DNA DET [SQGCCAMP] Order #: [id number] metroNIDAZOLE (FLAGYL) 500 mg tabletTake 1 tablet [...] Encounter Status:Closed (more content not included)... Normal [facility] Mitch Trich Amplon 022 Mitch glabrata RNA Negative Normal Negative [facility] Comment on above: Performed By: #### G CCT #### [place] [id number] [place] [phone] Mitch sp group RNA Negative Normal Negative [facility] Comment on above: Performed By: #### G CCT #### [place] [id number] [place] [phone] Trichomonas RNA Negative Normal [facility] Comment on above: Performed By: #### G CCT #### [place] [id number] [place] [phone] GC/Chlamydia Amplifon 2021 Chlamydia Amplif Negative Normal [facility] Comment on above: Performed By: #### G CCT #### [place] [phone] GC Amplification Negative Normal [facility] Comment on above: Performed By: #### G CCT #### [place] [phone] GC/Chlam Amp Source Cervix Normal [facility] Comment on above: Performed By: #### G CCT #### [place] [phone] Bact Vag Amplificationon Bact Vag Amplification Negative Normal Negat ko for bacterial vaginosis [facility] Comment on above: Performed By: #### C VTV, BVAMP #### [facility] CLIA [id number] [address] [place] [address] STATES OF [facility] CNOVon 07-04-2021 [facility] PRINCESS CANTU ([id number]) 1995 F [facility] Date Time Provider Department 07/04/21 4:00 PM GEORGIA DWYER [facility] During your visit today, we recorded the following information about you: Pulse Blood pressure Weight Height 74/minute 131/86 95.7 kg 1.727 m Last Period 06/07/21 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 APRN.HIGH WORKER 07/04/2021 4:39 PM Signed Princess is a [...] Ectopic0 Multiple0 Live Births0 Comment: 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 Some of these tests may be ordered or performed by your primary care doctor. Pap test screening The pap test loo (more content not included)... Normal [facility] Mitch Trich Amplon 021 Mitch glabrata RNA Negative Normal Negative [facility] Comment on above: Performed By: #### C VTV, BVAMP #### [facility] CLIA [id number] [address] [place] [address] [place] Mitch sp group RNA Negative Normal Negative [facility] Comment on above: Performed By: #### C VTV, BVAMP #### [facility] CLIA [id number] [address] [place] [address] [place] Trichomonas RNA Negative Normal [facility] Comment on above: Performed By: #### C VTV, BVAMP #### [facility] CLIA [id number] [address] [place] [address] [place] GC/Chlamydia Amplifon 2020 Chlamydia Amplif Negative Normal [facility] Comment on above: Performed By: #### G CCT #### [place] [id number] [place] [address] GC Amplification Negative Normal [facility] Comment on above: Performed By: #### G CCT #### [place] [address] GC/Chlam Amp Source Cervix Normal [facility] Comment on above: Performed By: #### G CCT #### [place] [id number] Tobacco Screening.on 021 Fall risk assessment a) [...] trachomatis and Neisseria gonorrhoeae testing on specific pfw-GRK-svmjycsr sample types (female urine samples) have been validated by [facility]. This laboratory is certified by CLIA [...] trachomatis and Neisseria gonorrhoeae testing on specific egj-XBU-dsouuxbp sample types (female urine samples) have been validated by [facility]. This laboratory is certified by CLIA to perform high complexity testing. Samples from all other sites are not validated for this method. TSHon 12-24-2020 TSH Qn 2.30 m[IU]/L Normal 0.44 - 3.98 [facility] Comment on above: Result Comment: TSH testing is performed using different testing methodology at [facility] than at other [facility]. Direct result comparisons should only be made within the same method. Performed By: #### T SH2 #### [facility] [id number] [place] [address] TSH - Thyroid Stimulating Ho ti, Serumon 12-24-2020 TSH Qn 2.30 m[IU]/L See Below [employer] Phone: Comment on above: Reference Range: 0.4 4 - 3.98 TSH testing is performed using different testing methodology at [facility] than at other [facility]. Direct result comparisons should only be made within the same method. Tobacco Screening.on 021 Fall risk assessment a) No falls within the last year [employer] Phone: Tobacco use status CPHS b) No M [employer] Phone: CBCon 08-14-2020 Erythrocyte distribution width (RBC) [Ratio] 13.2 % Normal 11.5 - 14.5 [facility] Comment on above: Performed By: #### C BC #### [address] [address] Hematocrit (Bld) [Volume fraction] 39.5 % Normal 36.0 - 46.0 [facility] Comment on above: Performed By: #### C BC #### [address] [address] Hemoglobin (Bld) [Mass/Vol] 13.0 g/dL Normal 12.0 - 16.0 [facility] Comment on above: Performed By: #### C BC #### [address] [address] MCHC (RBC) [Mass/Vol] 32.9 g/dL Normal 32.0 - 36.0 [facility] Comment on above: Performed By: #### C BC #### [address] [address] MCV (RBC) [Entitic vol] 91 fL Normal 80 - 100 [facility] Comment on above: Performed By: #### C BC #### [address] [address] NUCLEATED RBC 0.0 /100 WBC Normal 0.0 - 0.0 [facility] Comment on above: Performed By: #### C BC #### [address] [address] Platelets (Bld) [#/Vol] 235 10*3/uL Normal 150 - 450 [facility] Comment on above: Performed By: #### C BC #### [address] [address] RBC 4.33 x10E12/L Normal 4.00 - 5.20 [facility] Comment on above: Performed By: #### C BC #### [address] [address] WBC (Bld) [#/Vol] 5.8 10*3/uL Normal 4.4 - 11.3 [facility] Comment on above: Performed By: #### C BC #### [address] [address] COMPREHENSIVE PANELon 2020 Albumin [Mass/Vol] 4.7 g/dL Normal 3.4 - 5.0 [facility] Comment on above: Performed By: #### C MP #### [address] [address] ALP [Catalytic activity/Vol] 53 U/L Normal 33 - 110 [facility] Comment on above: Performed By: #### C MP #### [address] [address] ALT [Catalytic activity/Vol] 41 U/L Normal 7 - 45 [facility] Comment on above: Result Comment: Desiree ents treated with Sulfasalazine may generate falsely decreased results for ALT. Performed By: #### C MP #### [address] [address] Anion gap [Moles/Vol] 10 mmol/L Normal 10 - 20 [facility] Comment on above: Performed By: #### C MP #### [address] [address] AST [Catalytic activity/Vol] 27 U/L Normal 9 - 39 [facility] Comment on above: Performed By: #### C MP #### [address] [place] [address] Bilirubin [Mass/Vol] 0.6 mg/dL Normal 0.0 - 1.2 [facility] Comment on above: Performed By: #### C MP #### [address] [place] [address] Calcium [Mass/Vol] 9.5 mg/dL Normal 8.6 - 10.3 [facility] Comment on above: Performed By: #### C MP #### [address] [address] Chloride [Moles/Vol] 105 mmol/L Normal 98 - 107 [facility] Comment on above: Performed By: #### C MP #### [address] [address] Creatinine [Mass/Vol] 0.93 mg/dL Normal 0.50 - 1.05 [facility] Comment on above: Performed By: #### C MP #### [address] [address] GFR- AM. >60 Normal >60 [facility] Comment on above: Result Comment: CALC ULATIONS OF ESTIMATED GFR ARE PERFORMED USING THE MDRD STUDY EQUATION FOR THE IDMS-TRACEABLE CREATININE METHODS. CLIN CHEM 2007;53:766-72 Performed By: #### C MP #### [address] [address] GFR-NON AM. >60 Normal >60 [facility] Comment on above: Performed By: #### C MP #### [address] [address] Glucose [Mass/Vol] 94 mg/dL Normal 74 - 99 [facility] Comment on above: Performed By: #### C MP #### [address] [address] HCO3 (Bld) [Moles/Vol] 28 mmol/L Normal 21 - 32 [facility] Comment on above: Performed By: #### C MP #### [address] [place] [address] Potassium [Moles/Vol] 4.4 mmol/L Normal 3.5 - 5.3 [facility] Comment on above: Performed By: #### C MP #### [address] [place] [address] Protein [Mass/Vol] 7.3 g/dL Normal 6.4 - 8.2 [facility] Comment on above: Performed By: #### C MP #### [address] [place] [address] Sodium [Moles/Vol] 139 mmol/L Normal 136 - 145 [facility] Comment on above: Performed By: #### C MP #### [address] [place] [address] Urea nitrogen [Mass/Vol] 13 mg/dL Normal 6 - 23 [facility] Comment on above: Performed By: #### C MP #### [address] [place] [address] Hematologyon 08-14-2020 Hematocrit (Bld) [Volume fraction] 39.5 % See Below -Neurolog -[facility] DO Work Phone: Comment on above: Reference Range: 36. 0 - 46.0 Hemoglobin (Bld) [Mass/Vol] 13.0 g/dL See Below -Neurolog -[facility] DO Work Phone: Comment on above: Reference Range: 12. 0 - 16.0 MCV (RBC) [Entitic vol] 91 fL 80 - 100 M P-Neurolog -[facility] DO Work Phone: Platelets (Bld) [#/Vol] 235 {x10E9/L} 150 - 450 -Neurolog y-[facility] DO Work Phone: RBC (Bld) [#/Vol] 4.33 {x10E12/L} See Below [facility] Work Phone: Comment on above: Reference Range: 4.0 0 - 5.20 WBC (Bld) [#/Vol] 5.8 {x10E9/L} 4.4 - 11.3 MP-N eurolog y-[facility] DO Work Phone: WBC (Bld) [#/Vol] 0.0 {/100_WBC} 0.0 - 0.0 MP- Neurolog y-[facility] DO Work Phone: LAMOTRIGINE- LAMICTALon 07-20 LAMOTRIGINE- LAMICTAL 6.4 ug/mL Normal 2.5 - 15.0 [facility] Comment on above: Performed By: #### L AMOT #### [facility] [address] [place] [address] Lamotrigine Level, Serumon 0 08-14-2020 Lamotrigine [Mass/Vol] 6.4 ug/mL 2.5 - 15.0 MP -Neurolog y-[facility] DO Work Phone: Metabolic Panelon 08-14-2020 ALP [Catalytic activity/Vol] 53 U/L 33 - 110 MP-Neurolog y-[facility] DO Work Phone: Anion gap [Moles/Vol] 10 mmol/L 10 - 20 MP- Neurolog y-[facility] DO Work Phone: Bilirubin [Mass/Vol] 0.6 mg/dL 0.0 - 1.2 MP-N eurolog y-[facility] DO Work Phone: Calcium [Mass/Vol] 9.5 mg/dL 8.6 - 10.3 MP-Jozef rolog y-[facility] DO Work Phone: Chloride [Moles/Vol] 105 mmol/L 98 - 107 MP-N eurolog y-[facility] DO Work Phone: CO2 [Moles/Vol] 28 mmol/L 21 - 32 MP-Neurol og y-[facility] DO Work Phone: Creatinine [Mass/Vol] 0.93 mg/dL See Below - [facility] DO Work Phone: Comment on above: Reference Range: 0.5 0 - 1.05 Glucose [Mass/Vol] 94 mg/dL 74 - 99 -[facility] DO Work Phone: Potassium [Moles/Vol] 4.4 mmol/L 3.5 - 5.3 - [facility] DO Work Phone: Protein [Mass/Vol] 7.3 g/dL 6.4 - 8.2 -[facility] DO Work Phone: Sodium [Moles/Vol] 139 mmol/L 136 - 145 -[facility] DO Work Phone: Urea nitrogen [Mass/Vol] 13 mg/dL 6 - 23 -[facility] DO Work Phone: Otheron 08-14-2020 Albumin BCP dye [Mass/Vol] 4.7 g/dL 3.4 - 5.0 -[facility] DO Work Phone: ALT With P-5'-P [Catalytic activity/Vol] 41 U/L 7 - 45 [facility] DO Work Phone: Comment on above: Patients treated wit h Sulfasalazine may generate falsely decreased results for ALT. AST With P-5'-P [Catalytic activity/Vol] 27 U/L 9 - 39 -[facility] DO Work Phone: Erythrocyte distribution width (RBC) [Ratio] 13.2 % See Below [facility] DO Work Phone: Comment on above: Reference Range: 11. 5 - 14.5 MCHC (RBC) [Mass/Vol] 32.9 g/dL See Below [facility] DO Work Phone: Comment [...] areas of abnormal enhancement after contrast administration. [facility]: MRI BRA IN W WO CONTRAST [...] The calvarium and soft tissues are unremarkable. [facility] [place], [place] Incoming Radiant Results From [employer] - 05/09/2020 3:02 PM EDT EXAMINATION: MRI [...] areas of abnormal enhancement after contrast administration. [place], [place] MRI BRAIN W WO CONTRAST EXAMINATION: [...] David Winter MD 05/09/20 Final result Normal [facility] CBC With Platelet and Differ entialon 04-19-2020 Basophils (Bld) [#/Vol] 0.1 10*3/uL Normal 0.0-0.2 [facility] Comment on above: Performed By: #### C BCWD #### [facility] [address] [place] [address] Basophils/100 WBC (Bld) 0.4 % Normal [facility] Comment on above: Performed By: #### C BCWD #### [facility] [address] [place] [address] Eosinophils (Bld) [#/Vol] 0.5 10*3/uL Normal 0.0-0.7 [facility] Comment on above: Performed By: #### C BCWD #### [facility] [address] [place] [address] Eosinophils/100 WBC (Bld) 4.2 % Normal [facility] Comment on above: Performed By: #### C BCWD #### [facility] [address] [place] [address] Erythrocyte distribution width (RBC) [Ratio] 12.5 % Normal 11.5-14.5 [facility] Comment on above: Performed By: #### C BCWD #### [facility] [address] [place] [address] Hematocrit (Bld) [Volume fraction] 39.4 % Normal 37.0-47.0 [facility] Comment on above: Performed By: #### C BCWD #### [facility] [address] [place] [address] Hemoglobin (Bld) [Mass/Vol] 13.3 g/dL Normal 12.0-16.0 [facility] Comment on above: Performed By: #### C BCWD #### [facility] [address] [place] [address] Lymphocytes (Bld) [#/Vol] 3.2 10*3/uL Normal 1.0-4.8 [facility] Comment on above: Performed By: #### C BCWD #### [facility] [address] [place] [address] Lymphocytes/100 WBC (Bld) 26.9 % Normal [facility] Comment on above: Performed By: #### C BCWD #### [facility] [address] [place] [address] MCH (RBC) [Entitic mass] 29.8 pg Normal 27.0-31.3 [facility] Comment on above: Performed By: #### C BCWD #### [facility] [address] [place] [address] MCHC (RBC) [Mass/Vol] 33.8 % Normal 33.0-37.0 [facility] Comment on above: Performed By: #### C BCWD #### [facility] [address] [place] [address] MCV (RBC) [Entitic vol] 88.4 fL Normal 82.0-100.0 [facility] Comment on above: Performed By: #### C BCWD #### [facility] [address] [place] [address] Monocytes (Bld) [#/Vol] 0.8 10*3/uL Normal 0.2-0.8 [facility] Comment on above: Performed By: #### C BCWD #### [facility] [address] [place] [address] Monocytes/100 WBC (Bld) 6.8 % Normal [facility] Comment on above: Performed By: #### C BCWD #### [facility] [address] [place] [address] Neutrophils (Bld) [#/Vol] 7.3 10*3/uL Critically high 1.4-6.5 [facility] Comment on above: Performed By: #### C BCWD #### [facility] [address] [place] [address] Neutrophils/100 WBC (Bld) 61.7 % Normal [facility] Comment on above: Performed By: #### C BCWD #### [facility] [address] [place] [address] Platelets (Bld) [#/Vol] 314 10*3/uL Normal 130-400 [facility] Comment on above: Performed By: #### C BCWD #### [facility] [address] [place] [address] RBC (Bld) [#/Vol] 4.45 10*6/uL Normal 4.20-5.40 [facility] Comment on above: Performed By: #### C BCWD #### [facility] [address] [place] [address] WBC (Bld) [#/Vol] 11.9 10*3/uL Critically high 4.8-10.8 [facility] Comment on above: Performed By: #### C BCWD #### [facility] [address] [place] [address] CT HEAD WO CONTRASTon 2019 CT HEAD [...] De Jesus DO 04/19/20 Final result Normal [facility] Comprehensive Metabolic Pane crescencio 04-19-2020 Albumin [Mass/Vol] 4.9 g/dL Critically high 3.5-4.6 [facility] Comment on above: Performed By: #### C MP #### [facility] [address] [place] [address] ALP [Catalytic activity/Vol] 40 U/L Normal 40-130 [facility] Comment on above: Performed By: #### C MP #### [facility] [address] [place] [address] ALT [Catalytic activity/Vol] 17 U/L Normal 0-33 [facility] Comment on above: Performed By: #### C MP #### [facility] [address] [place] [address] Anion gap [Moles/Vol] 14 mmol/L Normal 9-15 [facility] Comment on above: Performed By: #### C MP #### [facility] [address] [place] [address] AST [Catalytic activity/Vol] 17 U/L Normal 0-35 [facility] Comment on above: Performed By: #### C MP #### [facility] [address] [place] [address] Bilirubin [Mass/Vol] mg/dL Normal 0.2-0.7 [facility] Comment on above: Performed By: #### C MP #### [facility] [address] [place] [address] Calcium [Mass/Vol] 10.0 mg/dL Critically high 8.5-9.9 [facility] Comment on above: Performed By: #### C MP #### [facility] [address] [place] [address] Chloride [Moles/Vol] 101 mmol/L Normal 95-107 [facility] Comment on above: Performed By: #### C MP #### [facility] [address] [place] [address] CO2 [Moles/Vol] 24 mmol/L Normal 20-31 [facility] Comment on above: Performed By: #### C MP #### [facility] [address] [place] [address] Creatinine [Mass/Vol] 0.87 mg/dL Normal 0.50-0.90 [facility] Comment on above: Performed By: #### C MP #### [facility] [address] [place] [address] GFR/1.73 sq M predicted among blacks MDRD (S/P/Bld) [Vol rate/Area] mL/min/{1.73_m2} Normal >60 [facility] Comment on above: Result Comment: >60 mL/min/1.73m2 EGFR, calc. for ages 18 and older using the MDRD formula (not corrected for weight), is valid for stable renal function. Performed By: #### C MP #### [facility] [address] [place] [address] GFR/1.73 sq M.predicted MDRD (S/P/Bld) [Vol rate/Area] mL/min/{1.73_m2} Normal >60 [facility] Comment on above: Result Comment: >60 mL/min/1.73m2 EGFR, calc. for ages 18 and older using the MDRD formula (not corrected for weight), is valid for stable renal function. Performed By: #### C MP #### [facility] [address] [place] [address] Globulin (S) [Mass/Vol] 3.1 g/dL Normal 2.3-3.5 [facility] Comment on above: Performed By: #### C MP #### [facility] [address] [place] [address] Glucose [Mass/Vol] 94 mg/dL Normal 70-99 [facility] Comment on above: Performed By: #### C MP #### [facility] [address] [place] [address] Potassium [Moles/Vol] 3.9 mmol/L Normal 3.4-4.9 [facility] Comment on above: Performed By: #### C MP #### [facility] [address] [place] [address] Protein [Mass/Vol] 8.0 g/dL Normal 6.3-8.0 [facility] Comment on above: Performed By: #### C MP #### [facility] [address] [place] [address] Sodium [Moles/Vol] 139 mmol/L Normal 135-144 [facility] Comment on above: Performed By: #### C MP #### [facility] [address] [place] [address] Urea nitrogen [Mass/Vol] 12 mg/dL Normal 6-20 [facility] Comment on above: Performed By: #### C MP #### [facility] [address] [place] [address] Lactic Acidon 04-19-2020 Lactate [Moles/Vol] 1.8 mmol/L Normal 0.5-2.2 [facility] Comment on above: Performed By: #### L ACID #### [facility] [address] [place] [address] Prolactinon 04-19-2020 Prolactin 160.8 ng/mL Normal [facility] Comment on above: Result Comment: Defa ult Normal Ranges Female Male Non: 4.8-23.3 4.0-15.2 Performed By: #### P JAISON #### [facility] [address] [place] [address] Serum HCG Qualitativeon HCG.beta subunit Qn Negative Normal [facility] Comment on above: Performed By: #### S HCG #### [facility] [address] [place] [address] Urinalysis, reflex to cultur emily 04-19-2020 Urine Reflexed to Culture Not Indicated Normal [facility] Comment on above: Performed By: #### U AR #### [facility] [address] [place] [address] Bilirubin Ql (U) Negative Normal Negative [facility] Comment on above: Performed By: #### U AR #### [facility] [address] [place] [address] Clarity (U) Clear Normal Clear [facility] Comment on above: Performed By: #### U AR #### [facility] [address] [place] [address] Color (U) Yellow Normal Straw/Hand [facility] Comment on above: Performed By: #### U AR #### [facility] [address] [place] [address] Glucose Ql (U) Negative Normal Negative [facility] Comment on above: Performed By: #### U AR #### [facility] [address] [place] [address] Hemoglobin Ql (U) Trace-intact Normal Negative [facility] Comment on above: Performed By: #### U AR #### [facility] [address] [place] [address] Ketones Ql (U) Negative Normal Negative [facility] Comment on above: Performed By: #### U AR #### [facility] [address] [place] [address] Leukocyte esterase Test strip Ql (U) Negative Normal Negative [facility] Comment on above: Performed By: #### U AR #### [facility] [address] [place] [address] Nitrite Ql (U) Negative Normal Negative [facility] Comment on above: Performed By: #### U AR #### [facility] [address] [place] [address] pH (U) 6.0 [pH] Normal 5.0-9.0 [facility] Comment on above: Performed By: #### U AR #### [facility] [address] [place] [address] Protein Ql (U) Negative Normal Negative [facility] Comment on above: Performed By: #### U AR #### [facility] [address] [place] [address] Specific gravity (U) [Rel density] 1.020 Normal 1.005-1.03 [facility] Comment on above: Performed By: #### U AR #### [facility] [address] [place] [address] Urobilinogen Qn (U) 0.2 {Alan'U}/dL Normal < 2.0 [facility] Comment on above: Performed By: #### U AR #### [facility] [address] [place] [address] Urine Microscopicon 04-19-20 20 Epithelial cells LM Ql (Urine sed) 0-2 Normal [facility] Comment on above: Performed By: #### U ARELY #### [facility] [address] [facility] [place] [address] RBC (U) [#/Vol] 0-2 Normal 0-2 [facility] Comment on above: Performed By: #### U ARELY #### [facility] [address] [place] [address] WBC (U) [#/Vol] 0-2 Normal 0-5 [facility] Comment on above: Performed By: #### U ARELY #### [facility] [address] [facility] [place] [address] CBC Auto Differentialon 10-0 -2020 Basophils (Bld) [#/Vol] 0.1 10*3/uL 0 - 0.2 K/u L [facility], [place] Basophils/100 WBC (Bld) 0.4 % M [place] Eosinophils (Bld) [#/Vol] 0.5 10*3/uL 0 - 0.7 K/uL [place] Eosinophils/100 WBC (Bld) 4.2 % [place] Erythrocyte distribution width (RBC) [Ratio] 12.5 % 11.5 - 14.5 % [place] Hematocrit (Bld) [Volume fraction] 39.4 % 37 - 47 % [place] Hemoglobin (Bld) [Mass/Vol] 13.3 g/dL 12 - 16 g/dL [place] Interpretation and review of laboratory results Abnormal [place] Lymphocytes (Bld) [#/Vol] 3.2 10*3/uL 1 - 4.8 K/uL [place] Lymphocytes/100 WBC (Bld) 26.9 % [place] MCH (RBC) [Entitic mass] 29.8 pg 27 - 31.3 pg [place] MCHC (RBC) [Mass/Vol] 33.8 % 33 - 37 % [place] MCV (RBC) [Entitic vol] 88.4 fL 82 - 100 fL [place] Monocytes (Bld) [#/Vol] 0.8 10*3/uL 0.2 - 0.8 K /uL [place] Monocytes/100 WBC (Bld) 6.8 % [place] Neutrophils Absolute 7.3 K/uL High 1.4 - 6.5 K/uL [place] Neutrophils/100 WBC (Bld) 61.7 % [place] Platelets (Bld) [#/Vol] 314 10*3/uL 130 - 400 K /uL [place] RBC (Bld) [#/Vol] 4.45 10*6/uL [place] WBC (Bld) [#/Vol] 11.9 10*3/uL High 4.8 - 10.8 K/uL [place] Comprehensive Metabolic Pane crescencio 04-18-2020 Albumin [Mass/Vol] 4.9 g/dL High 3.5 - 4.6 g/dL [place] ALP [Catalytic activity/Vol] 40 U/L 40 - 130 U/L [place] ALT [Catalytic activity/Vol] 17 U/L 0 - 33 U/L [place] Anion gap [Moles/Vol] 14 mmol/L [place] AST [Catalytic activity/Vol] 17 U/L 0 - 35 U/L [place] Bilirubin Ql (U) <0.2 0.2 - 0.7 mg/dL [place] Calcium [Mass/Vol] 10.0 mg/dL High 8.5 - 9.9 mg/dL [place] Chloride [Moles/Vol] 101 mmol/L [place] CO2 [Moles/Vol] 24 mmol/L [place] Creatinine [Mass/Vol] 0.87 mg/dL 0.5 - 0.9 mg/dL [place] GFR >60.0 >60 [place] Comment on above: >60 mL/min/1.73m2 EG FR, calc. for ages 18 and older using the MDRD formula (not corrected for weight), is valid for stable renal function. GFR Non- >60.0 >60 [place] Comment on above: >60 mL/min/1.73m2 EG FR, calc. for ages 18 and older using the MDRD formula (not corrected for weight), is valid for stable renal function. Globulin (S) [Mass/Vol] 3.1 g/dL 2.3 - 3.5 g/ dL [place] Glucose [Mass/Vol] 94 mg/dL 70 - 99 mg/dL [place] Interpretation and review of laboratory results Abnormal [place] Potassium [Moles/Vol] 3.9 mmol/L [place] Protein [Mass/Vol] 8.0 g/dL 6.3 - 8 g/dL [place] Sodium [Moles/Vol] 139 mmol/L [place] Urea nitrogen [Mass/Vol] 12 mg/dL 6 - 20 mg/dL [place] HCG Qualitative, Serumon hCG Qual Negative [place] Lactic Acid, Plasmaon 2019 Lactate [Moles/Vol] 1.8 mmol/L 0.5 - 2. 2 mmol/L [place] Microscopic Urinalysison Epithelial Cells, UA 0-2 /HPF [place] RBC (U) [#/Vol] 0-2 [place] WBC, UA 0-2 [place] Urine Reflex to Cultureon Bilirubin Urine Negative Negative [place] Blood, Urine Trace-intact Negative [place] Clarity, UA Clear Clear [place] Color, UA Yellow Straw/Yellow [place] Glucose, Ur Negative Negative mg/dL [place] Ketones Ql (U) Negative Negative mg/dL [place] Leukocyte esterase Test strip Ql (U) Negative Negative [place] Nitrite, Urine Negative Negative [place] pH, UA 6.0 [place] Protein (U) [Mass/Vol] Negative Negative mg/d L [place] Specific [place], UA 1.020 [place] Urine Reflex to Culture Not Indicated [place] Urobilinogen, Urine 0.2 <2.0 E.U./dL [place] ECHOCARDIOGRAPHY REPORT (HL) on 05-10-2017 ECHOCARDIOGRAPHY REPORT (HL) PRINCESS CANTU [id number] 179.6F [id number] VASCULAR LABReferring: Koffi Uriarte A.Reading: CURTIS GARCIA [...] 4 CH 16.1 cm2LA Volume Indexed 21.05 ml/m1Askeghrnb/Systoli c FunctionMV E-wave Vmax 0.884 m/secMV deceleration time 193 msecMV A-wave Vmax 0.494 m/secLV septal e' Vmax 0.115 m/secLV lateral e' Vmax 0.189 m/secLV E:e' septal ratio 7.7 ratio [facility] PRINCESS CANTU [id number] [place] [address] [id number] 93Jackie Uriarte MDECHOCARDIOGRAPHY REPORTLV E:e' lateral ratio [...] [facility] PRINCESS CANTU [id number] [place] [address] [id number] 93Jackie roper MDECHOCARDIOGRAPHY REPORTPericardium:Ther e is no [...] [facility] PRINCESS CANTU [id number] [place] [address] [id number] 93Jackie roper MDECHOCARDIOGRAPHY REPORT Normal [facility] BASIC METABOLIC PANELon 10-1 Anion gap 10 mmol/L Normal 6-18 [facility] Comment on above: Order Comment: Is pa tient fasting? YES Performed By: #### L BMP, LGFRP ####[facility] [address] [place] [address] Calcium 9.6 mg/dL Normal 8.6-10.3 [facility] Comment on above: Order Comment: Is pa tient fasting? YES Performed By: #### L BMP, LGFRP ####[facility] [address] [place] [address] Chloride 101 mmol/L Normal 98-107 [facility] Comment on above: Order Comment: Is pa tient fasting? YES Performed By: #### L BMP, LGFRP ####[facility] [address] [place] [address] CO2 27 mmol/L Normal 21-32 [facility] Comment on above: Order Comment: Is pa tient fasting? YES Performed By: #### L BMP, LGFRP ####[facility] [address] [place] [address] Creatinine 0.74 mg/dL Normal 0.5-1.05 [facility] Comment on above: Order Comment: Is pa tient fasting? YES Performed By: #### L BMP, LGFRP ####[facility] [address] [place] [address] Glucose mass conc 82 mg/dL Normal 74-99 [facility] Comment on above: Order Comment: Is pa tient fasting? YES Performed By: #### L BMP, LGFRP ####[facility] [address] [place] [address] Potassium molar conc 4.1 mmol/L Normal 3.5-5.3 [facility] Comment on above: Order Comment: Is pa tient fasting? YES Performed By: #### L BMP, LGFRP ####[facility] [address] [place] [address] Sodium 134 mmol/L Low 136-145 [facility] Comment on above: Order Comment: Is pa tient fasting? YES Performed By: #### L BMP, LGFRP ####[facility] [address] [place] [address] Urea nitrogen 14 mg/dL Normal 6-23 [facility] Comment on above: Order Comment: Is pa tient fasting? YES Performed By: #### L BMP, LGFRP ####[facility] [id number] [place], [place] [address] CBC AUTOon 05-04-2017 Erythrocyte distribution width Auto Ratio (RBC) 12.8 % Normal 11.5-14.5 [facility] Comment on above: Performed By: #### L CBC ####[place] [id number] Erythrocytes (RBC) 4.65 10*6/uL Normal 3.5-5.5 [facility] Comment on above: Performed By: #### L CBC ####[place] [address] Hematocrit (HCT) 41.1 % Normal 36.0-48.0 [facility] Comment on above: Performed By: #### L CBC ####[place] [address] Hemoglobin mass conc (Bld) 13.8 g/dL Normal 12.0-15.0 [facility] Comment on above: Performed By: #### L CBC ####[place] [id number] MCH 29.7 pg Normal 25.4-34.6 [facility] Comment on above: Performed By: #### L CBC ####[place] [id number] MCHC mass conc (RBC) 33.6 g/dL Normal 30.0-36.0 [facility] Comment on above: Performed By: #### L CBC ####[facility] [id number] [place], [place] [id number] MCV 88.4 fL Normal 79.0-98.0 [facility] Comment on above: Performed By: #### L CBC ####[place] [id number] Platelet mean volume (PMV) 9.3 fL Normal 8.4-11.9 [facility] Comment on above: Performed By: #### L CBC ####[place] [id number] Platelets 277 10*3/uL Normal 140-440 [facility] Comment on above: Performed By: #### L CBC ####[facility] [address] [place] [address] WBC (Leukocytes) 6.1 10*3/uL Normal 3.9-11.0 [facility] Comment on above: Performed By: #### L CBC ####[facility] [address] [place] [address] GLOMERULAR FILTRATION RATE E STon 05-04-2017 eGFR (non-black) mL/min/{1.73_m2} Normal > 60 [facility] Comment on above: Order Comment: Is pa tient fasting? YES Performed By: #### L BMP, LGFRP ####[facility] [address] [place] [address] IF AMER > 90 Normal > 60 [facility] Comment on above: Order Comment: Is pa tient fasting? YES Result Comment: Effe ctive 12/12/14:CKD-EPI equation / based on IDMS traceable creatinine.Continue to use the CREAT CLR-DOSE ([place]-Gault)value for determining medication dose. Performed By: #### L BMP, LGFRP ####[facility] [address] [place] [address] Vital Signs Date Time Vital Sign Value Performing Clinician Yael murguia 07-31-2022 10:54-0500 Body height 175.26 cm Koffi Rosas [employer] Work Phone: [employer] Work Phone: 07-31-2022 10:54-0500 Body mass index (BMI) [Ratio] 31.01 kg/m2 Koffi Clementeson Work Phone: [employer] Work Phone: 07-31-2022 10:54-0500 Body surface area Derived from formula 2.11 m2 Koffi Clementeson Work Phone: [employer] Work Phone: 07-31-2022 10:54-0500 Body temperature 97.6 [degF] Koffi Uriarte Work Phone: LR-AZCT-[place] Work Phone: 07-31-2022 10:54-0500 Body weight 95.26 kg Koffi Uriarte Work Phone: BB-RCFQ-[place] Work Phone: 07-31-2022 10:54-0500 Diastolic blood pressure 87 mm[Hg] Koffi Uriarte Work Phone: CX-ARDY-Sjrv [place] Work Phone: 07-31-2022 10:54-0500 Heart rate 76 /min Koffi Uriarte Work Phone: XY-QNKB-Ugjw [place] Work Phone: 07-31-2022 10:54-0500 Respiratory rate 18 /min Koffi Uriarte Work Phone: UT-WRBT-Ibjo [place] Work Phone: 07-31-2022 10:54-0500 Systolic blood pressure 121 mm[Hg] Koffi Uriarte Work Phone: PJ-XHHQ-Fuvf [place] Work Phone: 12-24-2021 11:32-0400 Body height 175.26 cm Koffi Uriarte Work Phone: TH-Givjsxjlh-[place] [facility] DO Work Phone: 12-24-2021 11:32-0400 Body mass index (BMI) [Ratio] 31.03 kg/m2 Koffi Uriarte Work Phone: SJ-Xmhmmfkam-Iefq [place] [facility] DO Work Phone: 12-24-2021 11:32-0400 Body surface area Derived from formula 2.11 m2 Koffi Uriarte Work Phone: EL-Pfqpujmqq-Scnd [place] [facility] DO Work Phone: 12-24-2021 11:32-0400 Body temperature 97.1 [degF] Koffi Uriarte Work Phone: [facility] DO Work Phone: 12-24-2021 11:32-0400 Body weight 95.3 kg Koffi Uriarte Work Phone: [facility] DO Work Phone: 12-24-2021 11:32-0400 Diastolic blood pressure 76 mm[Hg] Koffi Uriarte Work Phone: [facility] DO Work Phone: 12-24-2021 11:32-0400 Heart rate 54 /min Koffi Uriarte Work Phone: [facility] DO Work Phone: 12-24-2021 11:32-0400 SaO2% (BldA) [Mass fraction] 100 % Koffi Uriarte Work Phone: [facility] DO Work Phone: 12-24-2021 11:32-0400 Systolic blood pressure 114 mm[Hg] Koffi Uriarte Work Phone: [facility] DO Work Phone: 11-17-2021 13:08-0400 Body height 172.72 cm Koffi Uriarte Work Phone: [facility] Work Phone: 11-17-2021 13:08-0400 Body mass index (BMI) [Ratio] 32.39 kg/m2 Koffi Uriarte Work Phone: ZZ-YISE-G[place]ab [place] Work Phone: 11-17-2021 13:08-0400 Body surface area Derived from formula 2.1 m2 Koffi Uriarte Work Phone: IP-RNUN-Cmuf [place] Work Phone: 11-17-2021 13:08-0400 Body temperature 97 [degF] Koffi Uriarte Work Phone: KF-KMWZ-Mgue [place] Work Phone: 11-17-2021 13:08-0400 Body weight 96.62 kg Koffi Uriarte Work Phone: ME-OBJL-Vlpi [place] Work Phone: 11-17-2021 13:08-0400 Diastolic blood pressure 84 mm[Hg] Koffi Uriarte Work Phone: PO-FQNO-Kxvk [place] Work Phone: 11-17-2021 13:08-0400 Heart rate 70 /min Koffi Uriarte Work Phone: YV-AVGQ-Frdr [place] Work Phone: 11-17-2021 13:08-0400 Respiratory rate 18 /min Koffi Uriarte Work Phone: RY-NSSR-[place] Work Phone: 11-17-2021 13:08-0400 SaO2% (BldA) [Mass fraction] 96 % Koffi Uriarte Work Phone: CS-FSBW-Rphr [place] Work Phone: 11-17-2021 13:08-0400 Systolic blood pressure 126 mm[Hg] Koffi Uriarte Work Phone: FE-UJUU-Tcts [place] Work Phone: 06-25-2021 10:54-0500 Body height 172.72 cm Koffi Uriarte Work Phone: KW-Effzfssjk-Jzvk [place] [facility] DO Work Phone: 06-25-2021 10:54-0500 Body mass index (BMI) [Ratio] 32.08 kg/m2 Koffi Uriarte Work Phone: [facility] DO Work Phone: 06-25-2021 10:54-0500 Body surface area Derived from formula 2.09 m2 Koffi Uriarte Work Phone: [facility] DO Work Phone: 06-25-2021 10:54-0500 Body temperature 97.1 [degF] Koffi Uriarte Work Phone: [facility] DO Work Phone: 06-25-2021 10:54-0500 Body weight 95.71 kg Koffi Uriarte Work Phone: [facility] DO Work Phone: 06-25-2021 10:54-0500 Diastolic blood pressure 62 mm[Hg] Koffi Uriarte Work Phone: [facility] DO Work Phone: 06-25-2021 10:54-0500 Heart rate 67 /min Koffi Uriarte Work Phone: [facility] DO Work Phone: 06-25-2021 10:54-0500 Respiratory rate 18 /min Koffi Uriarte Work Phone: [facility] DO Work Phone: 06-25-2021 10:54-0500 SaO2% (BldA) [Mass fraction] 99 % Koffi Uriarte Work Phone: [facility] DO Work Phone: 06-25-2021 10:54-0500 Systolic blood pressure 131 mm[Hg] Koffi Uriarte Work Phone: [facility] DO Work Phone: 05-20-2021 15:59-0400 Body height 172.72 cm Koffi Uriarte Work Phone: NV-AJFQ-[place] Work Phone: 05-20-2021 15:59-0400 Body mass index (BMI) [Ratio] 31.93 kg/m2 Koffi Uriarte Work Phone: XP-BEBE-Hbjj [place] Work Phone: 05-20-2021 15:59-0400 Body surface area Derived from formula 2.09 m2 Koffi Uriarte Work Phone: YK-OMMC-Lkmw [place] Work Phone: 05-20-2021 15:59-0400 Body temperature 98.1 [degF] Koffi Uriarte Work Phone: WO-BVHQ-Eahv [place] Work Phone: 05-20-2021 15:59-0400 Body weight 95.26 kg Koffi Uriarte Work Phone: NV-FBFO-Pwop [place] Work Phone: 05-20-2021 15:59-0400 Diastolic blood pressure 82 mm[Hg] Koffi Uriarte Work Phone: FZ-WMTI-Ythz [place] Work Phone: 05-20-2021 15:59-0400 Heart rate 72 /min Koffi Uriarte Work Phone: SM-OAQW-[place]wy[place] Work Phone: 05-20-2021 15:59-0400 Respiratory rate 16 /min Koffi Uriarte Work Phone: OM-ZFYM-Tlsb [place] Work Phone: 05-20-2021 15:59-0400 Systolic blood pressure 122 mm[Hg] Koffi Uriarte Work Phone: DW-MUZR-Rymb [place] Work Phone: 12-24-2020 14:45-0400 Body height 172.72 cm Koffi Uriarte Work Phone: CX-AYLH-Lwcy [place] Work Phone: 12-24-2020 14:45-0400 Body mass index (BMI) [Ratio] 30.71 kg/m2 Koffi Uriarte Work Phone: WC-EIBN-Ietc [place] Work Phone: 12-24-2020 14:45-0400 Body surface area Derived from formula 2.05 m2 Koffi Uriarte Work Phone: VA-JDGH-Sblt [place] Work Phone: 12-24-2020 14:45-0400 Body temperature 97.8 [degF] Koffi Uriarte Work Phone: YD-GMLR-Rpvz [place] Work Phone: 12-24-2020 14:45-0400 Body weight 91.63 kg Koffi Uriarte Work Phone: LS-OJIW-Zbgo [place] Work Phone: 12-24-2020 12:59-0400 Body height 172.72 cm Koffi Uriarte Work Phone: ST-ODOE-Pnml [place] Work Phone: 12-24-2020 12:59-0400 Body mass index (BMI) [Ratio] 30.71 kg/m2 Koffi Clementeson Work Phone: VJ-XVBG-Nxsh [place] Work Phone: 12-24-2020 12:59-0400 Body surface area Derived from formula 2.05 m2 Koffi Clementeson Work Phone: KF-TASG-Apyw [place] Work Phone: 12-24-2020 12:59-0400 Body temperature 98.2 [degF] Koffi Uriarte Work Phone: CH-OAHL-Cdtn [place] Work Phone: 12-24-2020 12:59-0400 Body weight 91.63 kg Koffi Uriarte Work Phone: TB-NUVQ-Zygm [place] Work Phone: 12-24-2020 12:59-0400 Diastolic blood pressure 90 mm[Hg] Koffi Uriarte Work Phone: HP-QAQG-Mwvj [place] Work Phone: 12-24-2020 12:59-0400 Heart rate 75 /min Koffi Uriarte Work Phone: VJ-BWBO-Lfmq [place] Work Phone: 12-24-2020 12:59-0400 Respiratory rate 16 /min Koffi Uriarte Work Phone: HB-WOCX-Dslq [place] Work Phone: 12-24-2020 12:59-0400 Systolic blood pressure 147 mm[Hg] Koffi Uriarte Work Phone: IO-BKWY-Rmwv [place] Work Phone: 08-14-2020 13:26-0500 BMI (Body Mass Index) 29.04 kg/m2 Koffi Uriarte GJ-Xokerdgre-Vvnp [place] [facility] DO Work Phone: 08-14-2020 13:26-0500 Body Temperature 97.5 [degF] Koffi Uriarte [facility] DO Work Phone: 08-14-2020 13:26-0500 Body weight 86.64 kg Koffi Uriarte [facility] Work Phone: 08-14-2020 13:26-0500 BP Diastolic 100 mm[Hg] Koffi Uriarte [facility] [place] [facility] Work Phone: 08-14-2020 13:26-0500 BP Systolic 150 mm[Hg] Koffi Uriarte MP-Neurology- [facility] DO Work Phone: 08-14-2020 13:26-0500 BSA (Body Surface Area) 2 m2 Koffi Uriarte SO-Gqxccygsz-[place] [facility] DO Work Phone: 08-14-2020 13:26-0500 Height 172.72 cm Koffi Uriarte MP-Neurology- [facility] DO Work Phone: 05-28-2020 15:24-0500 BMI (Body Mass Index) 28.59 kg/m2 Koffi Uriarte MP-[facility]SPC -[place] Work Phone: 05-28-2020 15:24-0500 Body Temperature 97.6 [degF] Koffi Uriarte NA-YABV-Iqsg [place] Work Phone: 05-28-2020 15:24-0500 Body weight 85.28 kg Koffi Uriarte TU-OXRX-Bvfz [place] Work Phone: 05-28-2020 15:24-0500 BP Diastolic 82 mm[Hg] Koffi Uriarte YI-GOXQ-Qhdi [place] Work Phone: 05-28-2020 15:24-0500 BP Systolic 122 mm[Hg] Koffi Uriarte TT-NJPO-Amaw [place] Work Phone: 05-28-2020 15:24-0500 BSA (Body Surface Area) 1.99 m2 Koffi Uriarte EJ-MXGH-Vizv [place] Work Phone: 05-28-2020 15:24-0500 Height 172.72 cm Koffi Uriarte LZ-EHST-Emrv [place] Work Phone: 05-28-2020 15:24-0500 Pulse (Heart [...] Phone: 04-19-2020 00:00-0400 BP Diastolic 83 mm[Hg] [facility], [place] 04-19-2020 00:00-0400 BP Systolic 144 mm[Hg] [facility], [place] 04-18-2020 22:17-0400 BMI (Body Mass Index) 28.06 kg/m2 [facility], [place] 04-18-2020 22:17-0400 Body Temperature 98.91 [degF] Tu Wright [facility], [place] 04-18-2020 22:17-0400 Body weight 86.18 kg Tu Wright [facility], [place] 04-18-2020 22:17-0400 Height 175.3 cm Tu Wright [facility] 04-18-2020 22:17-0400 Pulse (Heart Rate) 105 /min Tu Barker [facility], [place] 04-18-2020 22:17-0400 Pulse Oximetry 97 % Tu Wright [facility] 04-18-2020 22:17-0400 Respiratory Rate 16 /min Tu [place] Adriana [facility], [place] Encounters Encounter Date Encounter Type Care Provider Facility Start: 07-14-2023 End: 07-14-2023 ambulatory SHIMA RODAS Not Available Start: 06-30-2023 End: 07-01-2023 ambulatory SHIMA RODAS Not Available Start: 06-16-2023 End: 06-16-2023 ambulatory SHIMA CLARK Not Available Start: 06-01-2023 End: 06-01-2023 ambulatory SHIMA CLARK Not Available Start: 04-30-2023 End: 04-30-2023 ambulatory NEDRA Jha [facility] [facility] Start: 04-30-2023 End: 04-30-2023 Office outpatient visit 15 minutes Nedra Calderon MD Work Phone: [facility] Comment on above: Seizure (CMS/HCC) (P rimary Dx) Start: 11-25-2022 End: 11-26-[address] LISA ZIMMERMAN . Facility:[facility]1 Start: 11-16-2022 End: 11-17-[address] LISA ZIMMERMAN . Facility:[facility] Start: 07-31-2022 Current tobacco non- user cad cap copd pv dm Koffi Uriarte Work Phone: [employer] Work Phone: Start: 07-31-2022 Periodic preventive med est patient 18-39 yrs Koffi Uriarte Work Phone: [employer] Work Phone: Start: 07-31-[address] 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 Work Phone: CB/Gynecology Comment on above: Appointment Start: 03-18-2022 AUDIT Koffi Carlson Gertrude Work Phone: QF-Yfosqllqx-Uqodxht e SJW DO Work Phone: Start: 02-03-2022 ambulatory Brendan Blankenship PA-C Work Phone: OB/Gynecology Comment on above: Bacteria Vaginosis Start: 01-02-2022 AUDIT Koffi Rosas Aldo combionicon Work Phone: YK-LUGS-[place] Work Phone: Start: 12-24-2021 Office outpatient vi sit 15 minutes Koffi Clementeson Work Phone: NV-Jieulpxjb-Abqothz e SJW DO Work Phone: Start: 11-17-2021 Office outpatient vi sit 15 minutes Koffi Clementeson Work Phone: NJ-LNOQ-[place] Work Phone: Start: 09-29-2021 AUDIT Koffi Carlson ardson Work Phone: LD-IIFA-[place] Work Phone: Start: 09-09-2021 End: 09-09-2021 ambulatory BRENDAN BLANKENSHIP Facility:[facility] Start: 07-04-2021 End: 07-05-2021 ambulatory GEORGIA DWYER Facility:[facility] Start: 07-04-2021 Encounter for gynecological examination (general) (routine) without abnormal findings GEORGIA DWYER [facility] Start: 06-25-2021 Office outpatient vi sit 25 minutes Koffi Alison Uriarte Work Phone: BM-Ncrbqenug-Lpcecvk e SJW DO Work Phone: Start: 05-22-2021 Chart Update Koffi Carlson ardson Work Phone: WQ-LATM-[place] Work Phone: Start: 05-20-2021 Office outpatient vi sit 25 minutes Koffi Alison Uriarte Work Phone: SV-TPEB-[place] Work Phone: Start: 05-20-2021 Patient encounter procedure Koffi Alison ClementeUriarte Work Phone: SG-CIUR-Bkco [place] Work Phone: Start: 03-28-2021 AUDIT Koffi Carlson ardson Work Phone: MY-UGDC-[place] Work Phone: Start: 12-24-2020 Chart Update Koffi Alison Carlson ardson Work Phone: ZW-QTEV-Mxfq [place] Work Phone: Start: 12-24-2020 Office outpatient vi sit 25 minutes Koffi A Uriarte Work Phone: AV-KCTH-Kmsq [place] Work Phone: Start: 08-14-2020 Patient encounter procedure Koffi Clementeson FF-Qlnnjupmj-Tvazdsb e SJW DO Work Phone: Start: 06-11-2020 Patient encounter procedure Koffi Uriarte HK-Wmbthdhla-Malfeoq e SJW DO Work Phone: Start: 05-28-2020 Patient encounter procedure Koffi Uriarte US-CLCF-Vdwc [place] Work Phone: Start: 05-09-2020 End: 05-12-2020 Patient encounter procedure SPIKE GARCIA [facility] Start: 05-09-2020 End: 05-11-2020 Subsequent hospital visit by physician Madeline Frey 1 EEG Comment on above: 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) Start: 04-25-2020 Patient encounter procedure Koffi Uriarte LM-ORCC-Fjjb [place] Work Phone: Start: 04-19-2020 End: 04-19-2020 Emergency department patient visit [facility] Start: 04-18-2020 End: 04-19-2020 Emergency department patient visit Tu Curran Work Phone: [facility] Comment on above: Seizure (HCC) (Prima ry Dx) Start: 03-02-2019 Patient encounter procedure Koffi Uriarte IB-COHK-[place]usj [place] Work Phone: Start: 05-04-2017 Ambulatory [facility] Patient encounter status Koffi Uriarte Work Phone: XO-WVJA-Gxjq [place] Work Phone: Procedures Date Procedure Procedure [...] Start: 04-18-2020 Urinalysis microscopic only Tu Reece [facility] Work Phone: Start: 04-18-2020 Urnls dip stick/tablet rgnt auto w/o microscopy Tu Curran Work Phone: Start: 04-18-2020 Blood count complete auto&auto difrntl wbc Tu Currna Work Phone: Start: 04-18-2020 Comprehensive metabolic panel Tu Curran Work Phone: Start: 04-18-2020 Gonadotropin chorionic qualitative Tu Curran Work Phone: History of No histor y of surgery Koffi Uriarte No history of surgery Shahnaz Uriarte Work Phone: Plan of Treatment Date Care Activity Detail Author Start: 10-02-2043 Zoster Vaccines (1 o f 2) Zoster Vaccines (1 of 2) [facility] Start: 02-17-2028 DTaP/Tdap/Td Vaccine s (8 - Td or Tdap) DTaP/Tdap/Td Vaccines (8 - Td or Tdap) [facility] Start: 08-02-2023 PHYSICAL, Provider: Koffi Uriarte, Status: Pen, Time: 9:00 AM PHYSICAL, Provider: Koffi Uriarte, Status: Pen, Time: 9:00 AM XF-IGXM-[place] Work Phone: Start: 08-02-2023 End: 08-02-2023 Patient encounter procedure 08/02/2023 9:00 AM EST Office Visit [facility] [address] [place] [id number] [place] [address] [place], [place] [id number] [facility] Start: 07-02-2023 PAP TESTING PAP TESTING [facility] Start: 07-02-2023 Screening for malignant neoplasm of cervix [facility] Start: 12-24-2022 ERIKA, Provider : Nedra Calderon, Status: Pen, Time: 10:00 AM ERIKA, Provider: Nedra Calderon, Status: Pen, Time: 10:00 AM LT-Emjqsloth-Dmgtabz e AMANDAW DO Work Phone: Start: 05-22-2022 PHYSICAL, Provider: Koffi Uriarte, Status: Pen, Time: 9:50 AM PHYSICAL, Provider: Koffi Uriarte, Status: Pen, Time: 9:50 AM QZ-LDIS-Frpp [place] Work Phone: Start: 03-24-2022 End: 05-24-2022 Choriogonadotropin.bet a subunit [Units/volume] in Serum or Plasma HCG QUANTITATIVE Lab Routine Bleeding in early Expected: 03/24/2022, Expires: 05/24/2022 [facility] Work Phone: Comment on above: Expected: 03/24/2022 , Expires: 05/24/2022 Start: 03-19-2022 Influenza vaccination INFLUENZA (#1) [facility] Start: 12-24-2021 Thyroid stimulating hormone measurement TSH Level [facility] Start: 12-24-2021 FUVGENERAL, Provider : Nedra Calderon, Status: Pen, Time: 11:30 AM FUVGENERAL, Provider: Nedra Calderon, Status: Pen, Time: 11:30 AM IH-Hhycwfsjn-Sesodsu e SJW DO Work Phone: Start: 11-17-2021 FUV, Provider: Koffi Uriarte, Status: Pen, Time: 1:00 PM FUV, Provider: Koffi Uriarte, Status: Pen, Time: 1:00 PM HP-HYAE-Cvyn [place] Work Phone: Start: 07-01-2021 COVID-19 VACCINE (3 - Booster for Pfizer series) COVID-19 VACCINE (3 - Booster for Pfizer series) [facility] Start: 06-25-2021 FUVGENERAL, Provider : Nedra Calderon, Status: Pen, Time: 2:00 PM FUVGENERAL, Provider: Nedra Calderon, Status: Pen, Time: 2:00 PM MX-VNQP-[place]m [place] Work Phone: Start: 06-25-2021 FUVGENERAL, Provider : Nedra Calderon, Status: Pen, Time: 11:00 AM FUVGENERAL, Provider: Nedra Caledron, Status: Pen, Time: 11:00 AM RH-UGDA-Fuaj [place] Work Phone: Start: 05-20-2021 FUV, Provider: Koffi Uriarte, Status: Pen, Time: 3:40 PM FUV, Provider: Koffi Uriarte, Status: Pen, Time: 3:40 PM CF-MXZC-Cxmb [place] Work Phone: Start: 03-31-2021 FUV, Provider: Koffi Uriarte, Status: Pen, Time: 2:00 PM FUV, Provider: Koffi Uriarte, Status: Pen, Time: 2:00 PM LM-OGGA-Jjyb [place] Work Phone: Start: 03-26-2021 COVID-19 Vaccine (3 - Pfizer series) COVID-19 Vaccine (3 - Pfizer series) [facility] Start: 03-19-2020 Influenza vaccination Flu vaccine (# 1) [place], [place] Start: 03-02-2018 DTaP/Tdap/Td vaccine (7 - Td) DTaP/Tdap/Td vaccine (7 - Td) [place] Start: 03-02-2018 Urine microalbumin profile DTAP,TDAP,TD (7 - Td or Tdap) [facility] Start: 2014 Screening for malignant neoplasm of cervix [facility] Start: 10-02-2011 HEPATITIS C SCREENING HEPATITIS C [facility] Start: 10-02-2011 Hepatitis C screening Hepatitis C [facility] Start: 10-02-2011 HIV SCREENING HIV SCREENING [facility] Start: 2008 HIV screening HIV screen [place], [place] Start: 2005 Adult depression screening assessment DEPRESSION SCREENING [facility] Start: 2004 HPV vaccine (1 - 2-dose series) HPV vaccine (1 - 2-dose series) [place], [place] Start: 04-09-1999 Varicella vaccination Varicell a Vaccines (1 of 2 - 2-dose childhood series) [facility] Start: 1994 Varicella vaccine (1 of 2 - 2-dose childhood series) Varicella vaccine (1 of 2 - 2-dose childhood series) [place], [place] Start: 1993 HIV screening HIV Screening [facility] Start: 1993 Lipid panel Lipid Panel [facility] Start: 1993 Yearly Adult Physical Yearly Adult P hysical [facility] End: 04-18-2020 CT Head WO Contrast CT Head WO Contrast Imaging STAT Once for 1 Occurrences starting 04/18/2020 until 04/18/2020 [place] Comment on above: Once for 1 Occurrenc es starting 04/18/2020 until 04/18/2020 CT Head WO Contrast CT Head WO C ontrast Imaging STAT 04/18/2020 11:15 PM EDT [place] End: 04-18-2020 Prolactin Prolactin Lab STAT One Time for 1 Occurrences starting 04/18/2020 until 04/18/2020 [place] Comment on above: One Time for 1 Occur rences starting 04/18/2020 until 04/18/[address] AT 04/18/2020 11:17 PM EDT [place] HS-IORU-[employer] Work Phone: [facility] NEGATED: Highlighted row has been ruled out! Planned Goals not documented XS-DIPX-Ergv [place] Work Phone: Immunizations Immunization Date Immunization Notes Care Provider Radha laura 04-21-2022 influenza, injectabl e, quadrivalent, preservative free Koffi A Uriarte Work Phone: AJ-GWKJ-Zqhd [place] Work Phone: 04-18-2021 influenza, injectabl e, quadrivalent, preservative free Koffi A Uriarte Work Phone: GF-SFQN-Xzuh [place] Work Phone: 01-29-2021 Pfizer-BioNTech COVID-19 Vacc 30 MCG/0.3ML Intramuscular Suspension Koffi A Uriarte Work Phone: VS-NWXO-Wpfq [place] Work Phone: 01-08-2021 Pfizer-BioNTech COVID-19 Vacc 30 MCG/0.3ML Intramuscular Suspension Koffi A Uriarte Work Phone: WX-MNPP-Kltn [place] Work Phone: 05-09-2019 Influenza, injectabl e, Madin Claudia Canine Kidney, preservative free, quadrivalent Koffi A Uriarte Work Phone: [employer] Work Phone: 04-28-2018 influenza, injectabl e, quadrivalent, contains preservative Koffi Uriarte Work Phone: [employer] Work Phone: 02-16-2018 tetanus toxoid, redu diego diphtheria toxoid, and acellular pertussis vaccine, adsorbed Koffi Rosas Uriarte Work Phone: [employer] Work Phone: 05-06-2017 influenza, injectabl e, quadrivalent, preservative free Koffi Rosas Uriarte Work Phone: [employer] Work Phone: 01-14-2016 pneumococcal polysaccharide vaccine, 23 valent Koffi Alison [employer] Work Phone: AV-TJHV-Odnj [place] Work Phone: 11-30-2014 tuberculin skin test ; purified protein derivative solution, intradermal [facility], [place] 12-15-2013 tuberculin skin test ; purified protein derivative solution, intradermal [facility], [place] 03-02-2008 tetanus toxoid, redu diego diphtheria toxoid, and acellular pertussis vaccine, adsorbed [facility] 02-25-2007 meningococcal polysaccharide (groups A, C, Y and W-135) diphtheria toxoid conjugate vaccine (MCV4P) [facility], [place] 02-25-2007 Meningococcal, MCV4, unspecified conjugate formulation(groups A, C, Y and W-135) [facility] 03-12-1999 diphtheria, tetanus toxoids and acellular pertussis vaccine [facility] 03-12-1999 diphtheria, tetanus toxoids and acellular pertussis vaccine, unspecified formulation Koffi Uriarte Work Phone: [employer] Work Phone: 03-12-1999 haemophilus influenz ae type b vaccine, HbOC conjugate [facility] 03-12-1999 measles, mumps and rubella virus vaccine [facility] 03-12-1999 poliovirus vaccine, inactivated [facility], [place] 03-12-1999 trivalent poliovirus vaccine, live, oral [place], [place] 01-07-1995 diphtheria, tetanus toxoids and acellular pertussis vaccine [facility] 01-07-1995 diphtheria, tetanus toxoids and acellular pertussis vaccine, unspecified formulation Koffi Uriarte Work Phone: [employer] Work Phone: 10-22-1994 haemophilus influenz ae type b vaccine, conjugate unspecified formulation [place], [place] 10-22-1994 haemophilus influenz ae type b vaccine, PRP-OMP conjugate Koffi A [employer]ants Work Phone: [employer] Work Phone: 10-22-1994 Hib, unspecified [place] 10-22-1994 measles, mumps and rubella virus vaccine [facility] 10-22-1994 poliovirus vaccine, inactivated [facility] 06-18-1994 hepatitis B vaccine, pediatric or pediatric/adolescent dosage Koffi Uriarte Work Phone: [facility] 06-18-1994 hepatitis B vaccine, unspecified formulation [place], [place] 04-16-1994 diphtheria, tetanus toxoids and acellular pertussis vaccine [facility], [place] 04-16-1994 diphtheria, tetanus toxoids and pertussis vaccine [facility] 04-16-1994 haemophilus influenz ae type b vaccine, conjugate unspecified formulation [place] 04-16-1994 haemophilus influenz ae type b vaccine, HbOC conjugate Brendan Blankenship PA-C Work Phone: [facility] 04-16-1994 haemophilus influenz ae type b vaccine, PRP-OMP conjugate Koffi Alison Uriarte Work Phone: [employer] Work Phone: 04-16-1994 Hib, unspecified [place] 04-16-1994 poliovirus vaccine, inactivated [facility] 04-16-1994 trivalent poliovirus vaccine, live, oral [facility], [place] 02-12-1994 diphtheria, tetanus toxoids and acellular pertussis vaccine [place] 02-12-1994 diphtheria, tetanus toxoids and pertussis vaccine [facility] 02-12-1994 haemophilus influenz ae type b vaccine, conjugate unspecified formulation [facility], [place] 02-12-1994 haemophilus influenz ae type b vaccine, HbOC conjugate Brendan Pattie TYSONC Work Phone: [facility] 02-12-1994 haemophilus influenz ae type b vaccine, PRP-OMP conjugate Koffi Clementeson Work Phone: [employer] Work Phone: 02-12-1994 Hib, unspecified [facility], [place] 02-12-1994 poliovirus vaccine, inactivated [facility] 02-12-1994 trivalent poliovirus vaccine, live, oral [facility], [place] 01-08-1994 hepatitis B vaccine, pediatric or pediatric/adolescent dosage Koffi Uriarte Work Phone: [facility] 01-08-1994 hepatitis B vaccine, unspecified formulation [facility] , [place] 1993 diphtheria, tetanus toxoids and acellular pertussis vaccine [facility], [place] 1993 diphtheria, tetanus toxoids and pertussis vaccine [facility] 1993 haemophilus influenz ae type b vaccine, conjugate unspecified formulation [facility], [place] 1993 haemophilus influenz ae type b vaccine, HbOC conjugate Brendan Lilibethpp PA-C Work Phone: [facility] 1993 haemophilus influenz ae type b vaccine, PRP-OMP conjugate Koffi Alison Uriarte Work Phone: [employer] Work Phone: 1993 hepatitis B vaccine, pediatric or pediatric/adolescent dosage Koffi Uriarte Work Phone: [facility] 1993 hepatitis B vaccine, unspecified formulation [facility] , [place] 1993 Hib, unspecified [place], [place] 1993 poliovirus vaccine, inactivated [facility] 1993 trivalent poliovirus vaccine, live, oral [facility], [place] Payers Date Payer Category Payer Unknown 2020 Unknown MMO MMO [employer] [id number] 2020-Present [phone] [address] [place] [address] PPO [id number] 2019 Unknown [id number] 1993 Unknown [id number] 1993 Unknown [id number] 1993 Unknown [id number] 1993 Unknown [id number] 1993 Unknown [id number] 1993 Unknown [id number] 1993 Unknown [id number] 1993 Unknown [id number] 1993 Unknown [id number] 1993 Unknown [id number] 1993 Unknown [id number] 1993 Unknown [id number] 1959 Unknown [id number] Unknown [id number] Social History Date Type Detail Facility Start: 04-18-2020 End: 04-30-2023 Tobacco smoking status NHIS Never smoker [facility] Start: 04-18-2020 End: 04-30-2023 Tobacco use and exposure Never used [place] Start: 04-18-2020 End: 09-09-2021 Alcohol intake Current drinker of alcohol (finding) [place] Start: 09-19-2019 History SDOH Financial 5 [place] Start: 09-19-2019 History SDOH Food Worry 1 [place] Start: 09-19-2019 History SDOH Transport Med 2 [place] Start: 04-18-2020 Alcohol Comment occasionally [facility] [place], [place] Start: 1993 Sex Assigned At Not on file [place] Start: 04-20-2023 End: 04-30-2023 Exposure to SARS-CoV-2 (event) Not sure [place] Never smoker Never smoker BI-CIKB-Byni [place] Work Phone: Tobacco smoking status Never [facility] Sex Assigned At Female [facility] NEGATED: Highlighted row - - SJ-QOHZ-Gjce [place] Work Phone: NEGATED: Highlighted rowStart: NINF History of tobacco use Passive smoker [facility] Work Phone: Functional Status Date Assessment Result Facility NEGATED: Highlighted row Functional performance Functional status health issues are not documented Disease VR-CGQV-Qxox [place] Work Phone: Mental Status Date Assessment Result Facility NEGATED: Highlighted row Cognitive function [Interpretation] Cognitive status health issues are not documented Disease PD-ZLBL-IwreJames Ruby Work Phone: Clinical Notes 08-09-2017 to [...] 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 Patient Active Problem List Diagnosis Abnormal weight [...] 5/5 throughout all four extremities. Coordination Right: Zegtpp-bc-fapw normal.Left: Beukbz-qd-vqro normal. Physical Exam Eyes: Extraocular Movements: Extraocular [...] in 1 year documented in this encounter [facility] Work Phone: 11-25-2022 Note EXAMINATION: US [...] authenticated by: HAYLIE RIVER Date: 2022-11-25 17:20 [facility] 04-16-2022 Note HNO ID: [id number] Author: Brendan Blankenship PA-C Service: ? 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 I, Brendan Blankenship, have reviewed this information as documented for accuracy and performed all elements of history taking, and edited the record as necessary. ROS: SEE HPI PE: GENERAL: well-appearing, in no acute distress LUNGS: Normal inspiratory effort SCIENTIFIC LINGUIST: Normal external genitalia, no vaginal bleeding, small [...] Medical Decision Making Level: 3 - Low [facility] 03-24-2022 Miscellaneous Notes VM left [...] move appt sooner. documented in this encounter [facility] 03-19-2022 Miscellaneous Notes LMP 02/11, +hpt. Assisted w initial OBV. Advised to take vitamin w folic acid. First trimester precautions provided. handbook sent in . documented in this encounter [facility] 02-03-2022 Miscellaneous Notes The following [...] medication MICHELLE: No documented in this encounter [facility] 09-09-2021 Note HNO ID: [id number] Author: Brendan Blankenship PA-C Service: ? 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 Portions of this record were documented by the [employer]. I, Brendan Blankenship, have reviewed this information as documented for accuracy and performed all elements of history taking, and edited the record as necessary. 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 [...] Medical Decision Making Level: 3 - Low [facility] 07-04-2021 Note HNO ID: [id number] Author: 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 APRN.HIGH WORKER Service: ? 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 Avoid scratching, scented pads/tampons/toilet papers, cranberry juice, bubble baths, and intercourse until symptoms are relieved. NO douching. If you shave, use a new razor at least twice monthly. 5) Follow up one year or sooner as needed 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 APRN.JUSTINE [facility] 08-09-2017 History of Past i llness Narrative Problem Noted Date Resolved Date NO SHOW 08/09/2017 08/09/2017 documented as of this encounter (statuses as of 02/03/2022) [facility] History of Past illness Narrative* Problem Noted Date Resolved Date NO SHOW 08/09/2017 08/09/2017 documented as of this encounter (statuses as of 03/19/2022) [facility] History of Past illness Narrative* Problem Noted Date Resolved Date NO SHOW 08/09/2017 08/09/2017 documented as of this encounter (statuses as of 03/24/2022) [facility] + Plan note No data available [facility] this [facility] Diagnosis Acute vaginitis- Primary Vaginitis and vulvovaginitis, unspecified [facility] Diagnosis Bleeding in early - Primary Unspecified hemorrhage in early , unspecified as to episode of care documented in this encounter [facility] note* Diagnosis Seizure (CMS/HCC)- Primary Other convulsions documented in this encounter [facility] Work Phone: History of Present illness Narrative* The patient states she has been doing well with her blood pressure control since the last visit. She has no comorbid illnesses. She has no significant interval events. * Symptoms: The patient is currently asymptomatic. * Less anxiety lately. Broke up with her boyfriend. 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 * BP is much improved on lisinopril. * Saw gyne for discharge. * was told she had BV and chlamydia. * took antibiotics, got better for a few weeks and now she is having discharge again and odor. no pelvic pain. [employer] Work Phone: History of Present illness Narrative* The patient states she has been doing well with her blood pressure control since the last visit. She has no comorbid illnesses. She has no significant interval events. * Symptoms: The patient is currently asymptomatic. * Less anxiety lately. Broke up with her boyfriend. * Working in [employer] at the [employer]. * BP is much improved on lisinopril. * Saw gyne for discharge. * was told she had BV and chlamydia. * took antibiotics, got better for a few weeks and now she is having discharge again and odor. no pelvic pain. [employer] Work Phone: Hospital Discharge instructions No data available for this section [facility] data available for this section [facility] Purpose Family History No Family History [...] FoundDocuments on File Type Date Recorded Patient Transfusion Aide Expl anation ACP-Advance Directive ACP-Power of Sociology Research Assistant Documents on File Type Date Recorded Patient Transfusion Aide Expl anation ACP-Advance Directive ACP-Power of Sociology Research Assistant Documents on File Type Date Recorded Patient Transfusion Aide Expl anation Advance Directive(s) 11/30/2015 2:19 PM Reason for Referral Status Reason Specialty Diagnoses / Procedures Referre d By Contact Referred To Contact Open Radiology Diagnoses Nonintractable generalized idiopathic epilepsy without status epilepticus (HCC) Procedures MRI BRAIN W WO CONTRAST Spike Garcia MD [address] [id number] Assessments Diagnosis Nonintractable generalized idiopathic epilepsy without status epilepticus (HCC) Diagnosis Seizure (HCC) Other convulsions Discharge Instructions * Attachments The following attachments cannot be sent through Care Everywhere. * Seizure (Azeri) documented in this encounter Additional Source Comments INFORMATION SOURCE (unrecogn ized section and content) DATE CREATED AUTHOR 01/11/2018 [facility] DATE CREATED AUTHOR AUTHOR'S ORGANIZ ATION 04/19/[address] [facility] DATE CREATED AUTHOR AUTHOR'S ORGANIZ ATION 05/11/2020 [facility] DATE CREATED AUTHOR AUTHOR'S ORGANIZ ATION 12/29/2020 [facility] DATE CREATED AUTHOR AUTHOR'S ORGANIZ ATION 04/14/2022 [facility] ical Center DATE CREATED AUTHOR AUTHOR'S ORGANIZ ATION 04/20/2022 [facility] DATE CREATED AUTHOR AUTHOR'S ORGANIZ ATION 08/11/2022 [facility] DATE CREATED AUTHOR AUTHOR'S ORGANIZ ATION 11/29/2022 [facility] DATE CREATED AUTHOR AUTHOR'S ORGANIZ ATION 12/27/2022 [facility] ical Center DATE CREATED AUTHOR AUTHOR'S ORGANIZ ATION 05/02/2023 [facility] Ambulatory DATE CREATED AUTHOR AUTHOR'S ORGANIZ ATION 07/16/2023 [facility] EPIC Reason for Visit (unrecogniz ed section and content) Status Reason Specialty Diagnoses / Procedures Referre d By Contact Referred To Contact Closed EEG Diagnoses Generalized idiopathic epilepsy and epileptic syndromes, not intractable, without status epilepticus Procedures EEG 16+ CHANNEL TELEMTERY 24HR Spike Garcia MD [address] [facility] [address] [place] [address] Mloz Eeg [address] [place] [address] Status Reason Specialty Diagnoses / Procedures Referre d By Contact Referred To Contact Closed Radiology Diagnoses Generalized idiopathic epilepsy and epileptic syndromes, not intractable, without status epilepticus Procedures MRI-BRAIN WO & W CONTRAST Spike Garcia MD [address] [facility] [address] [place] [address] Mloz Mri [address] [place] [address] Reason Comments Seizures Seizure like activit y [...] or prosecute any alcohol or drug abuse patient.[facility] Center[facility] the event this information is protected by the Federal Confidentiality of Alcohol and Drug Abuse Patient Records regulations: The Federal rules restrict any use of the information to criminally investigate or prosecute any alcohol or drug abuse patient.[facility] Center[facility] the event this information is protected by the Federal Confidentiality of Alcohol and Drug Abuse Patient Records regulations: The Federal rules restrict any use of the information to criminally investigate or prosecute any alcohol or drug abuse patient.[facility] Care Teams (unrecognized sec tion and content) [employer] Builder Relationship Specialty Start Date End Date Koffi Uriarte MD PCP - General Family Practice 08/17/16 [employer] Relationship Specialty Start Date End Date Koffi Uriarte MD PCP - General Family Practice 08/17/16 [employer] Builder Relationship Specialty Start [place] [address] [place] [address] PCP - General 08/14/20 [place] [address] [place] [address] PCP - MMO ACO PCP 02/16/23 FOR [...] BE BASED ON THE PRIMARY CLINICAL RECORDS. [facility]. provides no warranty or guarantee of the accuracy or completeness of information in this document.
== END 2023-07-28 20:04 | disposition home or self-care (01) ==
LOC: LAB 20:03
PROVIDERS: Visit Provider Obstetrics & Gynecology
DX: Z34.93 Encounter for supervision of normal pregnancy, unspecified, third trimester (principal)
CPT/HCPCS: 87081

== ENCOUNTER 2023-07-31 10:23 | Outpatient (OUT) | payer OTHER, SELFPAY ==
--- NOTE | 2023-07-31 | US_ITS ---
[address] [address] Patient Name: PRINCESS CANTU MRN: [facility]:[id number] date: 1995 Sex: F Assigned Patient Location: [place] Current Patient Location: [place] Accession/Order Number: [id number] Exam Date: 07/31/2023 11:04 Report Date: 08/03/2023 07:18 At the request of: LISA ZIMMERMAN Procedure: US OB BPP w non-stress EXAMINATION: US OB BPP w non-stress HISTORY: CHRONIC HYPERTENSION COMPARISON: No relevant comparison available. TECHNIQUE: Ultrasound biophysical profile was performed in the radiology department. FINDINGS: BREATHING MOVEMENTS: 2.0 GROSS BODY MOVEMENTS: 2.0 TONE: 2.0 QUALITATIVE AMNIOTIC FLUID VOLUME: 2.0 PRESENTATION: Breech HEART RATE: 138.5 bpm H.B./min AMNIOTIC FLUID VOLUME: 12.2 cm cm GESTATIONAL AGE: 36 weeks 5 days CONCLUSION: Total biophysical profile score: 8.0 Electronically authenticated by: HAYLIE RIVER Date: 08/03/2023 07:18
--- OUTSIDE RECORDS SUMMARY | 2023-07-31 10:26 | XMS_ITS | CCD ---
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 Koffi Rosas Primary Care Dario Uriarte, Dr. Koffi Rosas Attending Dario Uriarte, Dr. Koffi Rosas Referring Koffi Oquendo MD Primary Care Provider Koffi Uriarte MD Unavailable [phone] NEDRA CALDERON Attending Unavailable KOFFI URIARTE Primary [facility] Unavailabl SHIMA Joyce Attending Unavailable SHIMA RODAS Attending Unavailable LISA ZIMMERMAN Attending Unavailable SHIMA RODAS Attending Unavailable SHIMA RODAS Attending Unavailable Allergies Allergy Classification Reported Allergen(s) Allergy Type Date of Onset Reaction(s) Facility (1 source) No Known Medication Allergies; Translations: [No Known Medication Allergies] Propensity to adverse reactions (disorder) [facility] Repository Medications Current Medications Medication Drug [...] (1 source) Biguanide Start: 11-17-19 End: 04-30-20 23 take 1 tablet by mouth once daily at mealtime metFORMIN XR 500 mg 24 hr tablet Take 1 tablet (500 mg) by mouth once daily in the evening. Take with meals. 0 11/16/2022 04/30/2023 Discontinued (Therapy completed) naproxen 500 mg oral tablet (1 source) Nonsteroidal Anti-inflammatory Drug Start: 06-05-20 19 take 1 tablet by mouth twice daily Naprosyn 500 mg Tab 500 mg = 1 tab(s), Oral, BID, # 120 tab(s), Refills(s) 0, [facility]: [id number] Start Date: 06/05/19 Status: Ordered ondansetron 4 [...] 10-02-2022 10-02-2022 Episodic Unclassified (1 source) R07.9 85865/8 Onset: 05-04-2017 Unclassified (5 sources) Patient encounter status; Translations: [Encounter for audiology evaluation] NEGATED: Highlighted row has not occurred!Residual codes; unclassified (17 sources) Disease Episodic Results Test Name Value Interpretation Reference Range Facility DHEA SERUMon 11-20-2022 Dehydroepiandrosterone (DHEA) 656 ng/dL Normal 31-701 [facility] Comment on above: Performed By: #### D LAMAR. #### [facility] [address] [place] [address] Dr. Vish Brown ANTI-MULLERIAN HORMONEon Anti-Mullerian Hormone (AMH) 4.47 ng/mL Normal [facility] Comment on above: Result Comment: For assays employing antibodies, the possibility exists for interference by heterophile antibodies in the samples.1 1.Favio Campos Interferences in Immunoassays - still a threat. Clin. Chem. 2000; 46: 3891-5403. This test was developed and its performance characteristics determined by [employer]. It has not been cleared or approved by the Food and Drug Administration. Reference Range: Females 26 - 30y: 1.03 - 11.10 Median 4.20 AMH concentrations of >= 1.06 ng/mL is correlated with a better response to ovarian stimulation, produced more retrievable oocytes and higher odds of live according to Gabi et al. Fertility and Sterility. 2010: 94:5494-4016. The current AMH test method correlates with [...] tumor. Performed By: #### L BRUNA #### [facility] [address] [place] [address] Dr. Vish Brown DHEA-SULFATEon 11-17-2022 DHEA-Sulfate 449.0 ug/dL Critically high 84.8-378.0 [facility] Comment on above: Performed By: #### L [facility] #### [facility] [address] [place] [address] Dr. Vish Brown ESTRADIOLon 11-17-2022 Estradiol 34.3 pg/mL Normal [facility] Comment on above: Result Comment: Adul t Female: Follicular phase 12.5 - 166.0 Ovulation phase 85.8 - 498.0 Luteal phase 43.8 - 211.0 Postmenopausal <6.0 - 54.7 1st trimester 215.0 - >4300.0 Ele ECLIA methodology Performed By: #### E CHLOE #### [facility] [address] [place] [address] Dr. Vish Brown FSHon 11-17-2022 FSH 6.1 mIU/mL Normal [facility] Comment on above: Result Comment: Adul t Female: Follicular phase 3.5 - 12.5 Ovulation phase 4.7 - 21.5 Luteal phase 1.7 - 7.7 Postmenopausal 25.8 - 134.8 Performed By: #### [facility] #### [facility] [address] [place] [address] Dr. Vish Brown LUTEINIZING HORMONE (LH)on 0 11-17-2022 LH 4.5 mIU/mL Normal [facility] Comment on above: Result Comment: Adul t Female: Follicular phase 2.4 - 12.6 Ovulation phase 14.0 - 95.6 Luteal phase 1.0 - 11.4 Postmenopausal 7.7 - 58.5 Performed By: #### L SUHAS #### [facility] [address] [place] [address] Dr. Vish Brown PROGESTERONEon 11-17-2022 Progesterone 0.8 ng/mL Normal [facility] Comment on above: Result Comment: Foll icular phase 0.1 - 0.9 Luteal phase 1.8 - 23.9 Ovulation phase 0.1 - 12.0 First trimester 11.0 - 44.3 Second trimester 25.4 - 83.3 Third trimester 58.7 - 214.0 Postmenopausal 0.0 - 0.1 Performed By: #### P TASNEEM #### [facility] [address] [place] [address] Dr. Vish Brown CBC AUTO DIFFon 11-16-2022 BASO # 0.0 103/ul Normal 0.0-0.1 [facility] Comment on above: Performed By: #### L SUHAS #### [facility] [address] [place] [address] Dr. Vish Brown Basophils/100 WBC (Bld) 0.5 % Normal 0.2-2.0 [facility] Comment on above: Performed By: #### L SUHAS #### [facility] [address] [place] [address] Dr. Vish Brown EO # 0.3 103/ul Normal 0.0-0.7 [facility] Comment on above: Performed By: #### L SUHAS #### [facility] [address] [place] [address] Dr. Vish Brown Eosinophils/100 WBC (Bld) 4.0 % Normal 0.9-7.0 [facility] Comment on above: Performed By: #### L BCL #### [facility] [address] [place] [address] Dr. Vish Brown Erythrocyte distribution width (RBC) [Ratio] 12.0 % Normal 11.0-15.0 [facility] Comment on above: Performed By: #### L BCL #### [facility] [address] [place] [address] Dr. Vish Brown Hematocrit (Bld) [Volume fraction] 39.1 % Normal 36.0-48.0 [facility] Comment on above: Performed By: #### L BCL #### [facility] [address] [place] [address] Dr. Vish Brown Hemoglobin (Bld) [Mass/Vol] 13.0 g/dL Normal 12.0-16.0 [facility] Comment on above: Performed By: #### L BCL #### [facility] [address] [place] [address] Dr. Vish Brown IG # 0.02 10e3/ul Normal 0.00-0.03 [facility] Comment on above: Performed By: #### L BCL #### [facility] [address] [place] [address] Dr. Vish Brown IG % 0.3 % Normal 0.0-0.5 [facility] Comment on above: Performed By: #### L BCL #### [facility] [address] [place] [address] Dr. Vish Brown LYMPH # 2.5 103/ul Normal 1.2-3.8 [facility] Comment on above: Performed By: #### L BCL #### [facility] [address] [place] [address] Dr. Vish Brown Lymphocytes/100 WBC (Bld) 32.4 % Normal 20.5-60.0 [facility] Comment on above: Performed By: #### L BCL #### [facility] [address] [place] [address] Dr. Vish Brown MANUAL DIFF REQ NO Normal [facility] Comment on above: Performed By: #### L BCL #### [facility] [address] [place] [address] Dr. Vish Brown MCH (RBC) [Entitic mass] 29.9 pg Normal 26.7-34.0 [facility] Comment on above: Performed By: #### L BCL #### [facility] [address] [place] [address] Dr. Vish Brown MCHC (RBC) [Mass/Vol] 33.2 g/dL Normal 29.9-35.2 [facility] Comment on above: Performed By: #### L BRUNA #### [facility] [address] [place] [address] Dr. Vish Brown MCV (RBC) [Entitic vol] 89.9 fL Normal 81.0-99.0 [facility] Comment on above: Performed By: #### L BCL #### [facility] [address] [place] [address] Dr. Vish Brown MONO # 0.6 103/ul Normal 0.3-0.8 [facility] Comment on above: Performed By: #### L BRUNA #### [facility] [address] [place] [address] Dr. Vish Brown Monocytes/100 WBC (Bld) 7.4 % Normal 1.7-12.0 [facility] Comment on above: Performed By: #### L BCL #### [facility] [address] [place] [address] Dr. Vish Brown NEUT # 4.3 103/ul Normal 1.4-6.5 [facility] Comment on above: Performed By: #### L BCL #### [facility] [address] [place] [address] Dr. Vish Brown Neutrophils/100 WBC (Bld) 55.4 % Normal 43.0-75.0 [facility] Comment on above: Performed By: #### L BCLH #### [facility] [address] [address] [address] Vish Brown Platelet mean volume (Bld) [Entitic vol] 9.0 fL Critically low 9.5-13.5 [facility] Comment on above: Performed By: #### L BCLH #### [facility] [address] [place] [address] Dr. Vish Brown PLT 277 103/ul Normal 150-450 [facility] Comment on above: Performed By: #### L BCLH #### [facility] [address] [place] [address] Dr. Vish Brown RBC 4.35 106/ul Normal 4.20-5.40 [facility] Comment on above: Performed By: #### L BCLH #### [facility] [address] [place] [address] Dr. Vish Brown WBC 7.7 103/ul Normal 4.0-11.0 [facility] Comment on above: Performed By: #### L BCLH #### [facility] [address] [place] [address] Dr. Vish Brown FREE T4on 11-16-2022 Free T4 [Mass/Vol] 1.08 ng/dL Normal 0.76-1.46 [facility] Comment on above: Performed By: #### F T4 #### [facility] [address] [place] [address] Dr. Vish Brown GLYCOHEMOGLOBIN A1Con 2022 ADA RECOMMENDATION SEE BELOW Normal [facility] Comment on above: Result Comment: ADA RECOMMENDED LIMIT 4.0 - 6.0 ADA THERAPEUTIC TARGET < 7.0 ACTION SUGGESTED > 7.0 Performed By: #### A 1C #### [facility] [address] [place] [address] Dr. Vish Brown Glucose [Mass/Vol] 94 mg/dL Normal [facility] Comment on above: Performed By: #### A 1C #### [facility] [address] [place] [address] Dr. Vish Brown HbA1c (Bld) [Mass fraction] 4.9 % Normal 4.5-6.2 [facility] Comment on above: Performed By: #### A 1C #### [facility] [address] [address] [address] Vish Brown PREG QUANT HCGon 11-16-2022 HCG QUANT <1 Normal [facility] Comment on above: Performed By: #### P REGQNT, TSH #### [facility] [address] [place] [address] Dr. Vish Brown HCG RANGE SEE BELOW Normal [facility] Comment on above: Result Comment: 5-50 0.2-1 WEEK 50-500 1-2 WEEKS 100-5,000 2-3 WEEKS 500-10,000 3-4 WEEKS 1,000-50,000 4-5 WEEKS 10,000-100,000 5-6 WEEKS 15,000-200,000 6-8 WEEKS 10,000-100,000 2-3 MONTHS Performed By: #### P REGQNT, TSH #### [facility] [address] [place] [address] Dr. Vish Brown TSHon 11-16-2022 TSH 2.030 uIU/mL Normal 0.358-3.740 [facility] Comment on above: Performed By: #### P REGQNT, TSH #### [facility] [address] [place] [address] Dr. Vish Brown HM [age] Yearson 07[birth year]31-2024 [age] Years Diagnoses/Problems Health [...] Services - Lab To Draw (Blood Test); Due:[id number];Ordered; For:Benign essential hypertension; Ordered By:Koffi Uriarte; Provider [...] Occasional alcohol (more content not included)... Normal [facility] Tobacco Screening.on 023 Adult depression screening assessment No [facility] [employer] Phone: Fall risk assessment a) No falls within the last year [facility] [employer] Phone: Tobacco use status CPHS b) No [facility] [employer] Phone: B-HCG SerPl-aCncon HCG.beta subunit Qn m[IU]/mL Normal <5.0 [facility] Comment on above: Order Comment: Speci men Type: BLOOD SPECIMENOrdering Facility: [facility] Address: [address] [place] [address] Result Comment: Soledad kyle Performed By: #### G CCT #### [address] [address] BACTERIAL VAGINOSIS AMPLIFIC ATIONon 04-16-2022 Lactobacillus crispatus+gasseri+jense james + Gardnerella vaginalis + Atopobium vaginae rRNA HUMERA+probe Ql (Vag fld) Negative Normal Negative for bacterial vaginosis [facility] Comment on above: Order Comment: Speci men Type: SWAB [facility]ing [facility] Address: [address] [place] [address] Performed By: #### C VTV, BVAMP #### [facility] CLIA [id number] [address] [place] [address] OF [facility] C. trachomatis+N. gonorrhoea e DNA HUMERA+probe Ql (Unsp spec)on 04-16-2022 C. trachomatis DNA HUMERA+probe Ql (Unsp spec) Negative Normal Negative for Chlamydia trachomatis by amplificaton [facility] Comment on above: Order Comment: Speci men Type: SWAB [facility]ing [facility] Address: [address] [place] [address] Performed By: #### C VTV, BVAMP #### [facility] CLIA [id number] OF [place] N. gonorrhoeae DNA HUMERA+probe Ql (Unsp spec) Negative Normal Negative for Neisseria gonorrhoeae by amplification [facility] Comment on above: Order Comment: Speci men Type: SWAB [facility]ing [facility] Address: [address] [place] [address] Performed By: #### C VTV, BVAMP #### [facility] CLIA [id number] [address] [place] [address] OF [place] MITCH / TRICHOMONAS AMPLIF ICATIONon 04-16-2022 MITCH / TRICHOMONAS AMPLIFICATION MITCH SPECIES GROUP RNA: Negative for Mitch species MITCH GLABRATA RNA: Negative for Mitch glabrata TRICH VAG AMPLIFICATION RNA: Negative for Trichomonas vaginalis by amplification Normal [facility] Comment on above: Performed By: #### C VTV, BVAMP #### [facility] CLIA [id number] [address] [place] [address] OF ONI CNCOon 04-16-2022 CNCO Letter Text Letter Text Normal [facility] CNOVon 04-16-2022 CNOV Office Visit (OBGA ) PRINCESS CANTU ([id number]) 1995 F Date Time Provider Department 04/16/22 8:00 AM BRENDAN BLANKENSHIP [facility] During your visit today, we [...] History Social History Narrative Single No pregnancies 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 I, Brendan Blankenship, have reviewed this information as documented for accuracy and performed all elements of history taking, and edited the record as necessary. ROS: SEE HPI PE: GENERAL: well-appearing, in no acute distress LUNGS: Normal inspiratory effort EXTERNAL GRINDER TOOL: Normal external genitalia, no vaginal bleeding, small [...] Order(s):MITCH / TRICHOMONAS AMPLIFICATION [SQCVTV] Order #: [id number]. #:[id number] BACTERIAL VAGINOSIS AMPLIFICATION [SQBVAMP] Order #: [id number]. #:[id number] GC/CHLAMYDIA DNA DET [SQGCCAMP] Order #: [id number]. #:[id number] SYPHILIS TOTAL W/REFLEX [SQSYPHTX] Order #: [id number] FUTURE HIV 1 2 COMBO(AG/AB),WITH REFLEX TO DIFFERENTIATION [SQHIV12] Order #: [id number] FUTURE HEP C AB IA W/CONF SCRN [LBLIDA6S] Order #: [id number] FUTURE HEP B SURF AG SCRN [SQHBSAG] Order #: [id number] FUTURE Prescriptions as of 04/16/2022 - lamoTRIgine [...] Encounter Status:Closed by BRENDAN BLANKENSHIP on 04/16/22 [facility] HBV surface Ab IA Ql (S)on 0 04-16-2022 HBV surface Ag Ql (S) Negative Normal Negative [facility] Comment on above: Order Comment: Speci men Type: BLOOD SPECIMENOrdering Facility: [facility] Address: [address] [place] [address] Performed By: #### G CCT #### [place] [phone] HCV Ab Ser Qlon 04-16-2022 HCV Ab Ql (S) Negative Normal Negative [facility] Comment on above: Order Comment: Speci men Type: BLOOD SPECIMEN [facility] Address: [address] [place] [address] Result Comment: The result suggests no evidence of active infection with Hepatitis C virus. Should recent infection be suspected, repeat testing may be considered 4-6 weeks after this draw. Performed By: #### 1 [id number] #### [facility] CLIA [id number] [address] [place] [address] OF [facility] HIV 1+2 Ab IA Qlon 2 HIV 1 and 2 Ab IA.rapid Nom Normal [facility] Comment on above: Order Comment: Speci men Type: BLOOD SPECIMENOrdering Facility: [facility] Address: [address] [place] [address] Result Comment: Test not indicated. Performed By: #### G CCT #### [place] [phone] HIV 1+2 Ab+HIV1 p24 Ag IA Ql Non-Reactive Normal Nonreactive [facility] Comment on above: Order Comment: Speci men Type: BLOOD SPECIMENOrdering Facility: [facility] Address: [address] [place], [place] [address] Performed By: #### G CCT #### [place] [phone] HIVINT Normal [facility] Comment on above: Order Comment: Speci men Type: BLOOD SPECIMENOrdering Facility: [facility] Address: [address] [place] [address] Result Comment: No e vidence of HIV-1 or HIV-2 infection. Should recent infection be suspected, repeat testing may be considered 2-3 weeks after this draw. [place] Rev. Code 3701.243(E): This information has been [...] diagnoses. Performed By: #### G CCT #### [place] [phone] Reagin and Treponema pallidu m IgG and IgM [Interp]on 04-16-2022 SYPHILIS INTERPRETATION Cannot exclude r ecent Treponemal infection if specimen collected within 7-10 days after appearance of suspect lesions or 2-3 weeks after an exposure. Clinical correlation is required. Normal [facility] Comment on above: Order Comment: Speci men Type: BLOOD SPECIMENOrdering Facility: [facility] Address: [address] [place] [address] Performed By: #### G CCT #### [place] [phone] T. pallidum IgG+IgM IA Ql (S) Non-Reactive Normal Nonreactive [facility] Comment on above: Order Comment: Speci men Type: BLOOD SPECIMENOrdering Facility: [facility] Address: [address] [place] [address] Performed By: #### G CCT #### [place] [phone] Coding Summary.on 03-27-2022 Coding Summary. CD:[id number] Gh 0bWw+PGhlYWQ+DS4IIRZuZ 67hcRXddY4LY2rYWR1LWRO KAJQHCH9LZX7ewXP1NHdzK 2VybiAv CttqxPXvGT05BWw0VNZ2gR phAWnffW2lwRZkI1z1HtHz ZD82nW32STvrAWBcKrS6Ln ZpbjsgbWFy X4euUtVffKFbHyj+PHRhYm xlIHdpZHRoPScxMDAlJyBz nCtqGX6wRt4wDWXnUEFiwE xhcHNlOiBj j2pnHBDePIjvYS5mgZcbR8 TndRG5EMOzr2w3Bj10hDO+ DIUoIFE1vQnwPWdam305Vi Jof6lsTLM7 fLAvNYftUYQ2V18gp6A0UB CqQCNpYZA0aGA9rH3ioYqf ciocT0GymUBnQzU6DUC6dH HkjR6nnHct ztlkmM2xDco+O21BVT8FTC BWRY4ERxi6Z7WbOmzndHX+ NB86AELeQU35eZHykLUdl8 qrkLr1JcQv GVRlAWF3jBbjIYdok8ZkWE JrP10ymGScl8Q2YXBwpOne dVEsHzUudKV2hC9vPMausb ezd5bthdeo Wjytw9wngb40mB06X97yOB jjDLArPMR5HTEiAXImfXdk jt3cjS1hWd0+XYosf4tcb7 ouwQh2EzSm ADLwthExyMobQPP4e4TfQc 03C0CwzPygp5DvPmv4cq85 xGCkj3Z3jOP4JDzoLSQvdE 7aQHxhFrE0 ZHMxLtVviY98eWLxNZzgCj 8vlBxgvNheJW8tFUMgdgml BABcsW7mPOSpbOGjjSdfWH 4wNTBpbjtm q028EfMtUSI0SABjzXIgC6 IzdF2cLeLtNKQqWUAvC0Vd jQNtGFzmF311JPsoRcG7RI IcwpVkS2Ug FQWvbEbsTnJ3k9S3Tg4Dq1 UlpcvoDTG2CWofKZL8CiO8 TuJlKoK4J0UuRir1UHFsvF siYD3kO0Fb OHExhuqcomjkkJA1WAReTB IfqY98iDGzRTezUg3zz0M9 m134XPRfUWPefV50Ab0mwG ogMTBwdCBU rR8elpnas0tkyqqtSkWgNU KkJOc6IAj1QZQluOdvKgFl ZDJ0NtZ7BAO9iGSeaF2szD kkzkfsoX4j Oyc+X37jyF4hEGL1MEQ5wy mqYYYlrkBsFI70IQ74X5Ok PjwvdGFibGU+PGRpdiBzdH ffLX5zEpIp i6xod1KdISvcF7NrOCNjTY kiCcv0WVGyTJQ5kFE2qG2r YCEsVBlzl6T3hOE3Q1Ylnk Wiic5tc3mi SYPwFLuzU38vdDJiv6Y3QP ZwlUU0YKPufZrxSeUrlF16 Oyc+SYJppKtiw2OkOelzd9 crm4qqzIr5 GhTlWJTzbaRbfXjvXFY9e8 EzSw11N09xHIjaAGSxMOIq VXOzTFLckOlwpk3juW2pJb 8+PGNvbCB3 kXD6bG0vTIEkEnU8LZeuP8 45XcSgySDlXbtsa2ahy8zm yIe4AoToUECzlhGonSilUU J7m2DqEr45 Z63kEVfxITLbSYYyRZKpTV CmlXbobq0yeK5iBg3+PC9j p5jwtk78pF46qGJ+PHRkIH B5eHdeZGua QKDleU5lBVssDfG0OJTiCd BhxF35zUDtYQakRq1huBqi lBjvHG7hWOGqjzqou593Ng Efs1pqSKWc bVNnRTkoTNF0U32gc6L0BK IcNCYaFPO6wLC8cM0qaDkl bjogbGVmdDsgdmVydGljYW vxHMviR838 IHRvcDsnPlBhdGllbnQgTm VeMSq3Z8MpWzv4VMYmtVuk UE7dsODiWHjtTi5tbOtejB opHT3iFVIk safat320LrOtd6fuSWOqeL GvBPxsJXP3R83gy8W9TWMp UGOfHZE9mXJ0xQ8hfHdtvx ogbGVmdDsg mrVinYtmGPhnRGlgO976BG RvcDsnPkJpcnRoIERhdGU6 VK30XN09xBBzx4W2eFL8V4 BhZGRpbmct wtoeqRJ1ZVNwTHXirK31Ix 3ojQtdKs3wYRFnRBP4KHNs xUFgJ1WiuI5nNhGrHMSyFN TzU6SxwQAq FOnjL115PDgeVaJ5VOWdvm CgV5ZwJMVdkYshLtL6c5U2 Jx0PF6R0XE42UQ95fWImo6 V5mPG0H8Rv VAFebvymtmtxgBF7YGQyPT RyrA53Ak4yrOtdHa2hTRMp SVC7MOZknHFnP7FcpR2dKs AjMDAwMDAw M0EbkMHfAMnhG363EQeaKg H2GJQzbnGkI1VzWINhtLjo ErW2a4I5Ik2NLEd6CY69QW 51kHYlr7O0 fGL7C4RuRCLopssmaxidxB D4RRStXHCpkZ97Bm8fyUue Yj9lIFCeMXM3EDOtuNPcI8 RhcM0uKjBz RIUpCTIpN6XptFSdBXubS7 31SFdfYbQ6LEYpzcZyA5Xh RWKjoYlaDzK6t9A5Ze9AYN RpMU19EHR9 vMZ5XP58DM08W0LqPjssqJ FibGU+PHRhYmxlIHdpZHRo WEeyMKTfSkQjyUxnCL4jXt 9yZGVyLWNv xTrjcGXhCbEkm1xvMTRyLH fiMU8ywVevE5BumRH9HVQu b1f2Cx53A24qP3OrpAQ+PG SboTD3xSY4 oE3nSkUmCaW5KUezI162Fi UfuSPqEzkxy3olr4lesDf6 IxQ9XNIchzEtrLmwEIV1e3 CyGj93D02x IHdpZHRoPSIxNSUiIHZhbG hphj7shB8yIn1+PGNvbCB3 yUF8cU3wYqMuBkM3PCpeP0 49InRvcCIv Gygpi0tfx4thzXh8BuYmGC CyhvHsjLukHAW8v6QrCc19 O7FnkDjrv5SrBvc8uu43vH Cif6E6pJN1 G1TbUTFzycxwoYPnlIsvYX 2dAIIbnlunKPEcwB5iNTRe X3g1AyWuCgE1NAenI6Ocub Q8NIDxeNYv CYmpBIH0Q22wd9C0IINoUM ThDGH9oRJ6nB8jsEliuvms bGVmdDsgdmVydGljYWwtYW xjR553SYRe wScyHYZcpJ6rYHKquQZggS ccKV5cAIBvdobmPmMRA6jo OQ7JR7KVYIO5C5FiKft2OI CsdRzqJM4n xYBaSVlpNh9cyEmjlWczNU 8iQRGcnxalZMGjiW2kRBXm tPRttRftFR4tRMBylnqbr3 88JuJiTUS1 DAUzrZPzA1TynZ1pVgLoHQ JvDHMmP1CoyUAtNYgyQ261 EWwyFfG5ROAqjfBjS0LlTZ FsaWduOiB0 q2T9Fv3vSz5uDq2iAZt4RZ 86LL42rUFak4V4bMC7N6Po DSBuwfmaypcbdOE4GFHmNR RskX55lAWz VDcxFj7wv1M3o524MTRnFW WlgI05So3ssTsvGTIlqDWD mZ5lfyxiz2jtmxyoQdGuSY XzBKr6IJh6 RYJrzZmpAcVpAYF3QgP0TZ Z1bWJtyD8zwEifxdpnxS2h Oyc+OldwNPPpzgK2T9PjGb o4XWMlkGdh WU2baTTmZJszGj6wjKwlaO xyGN5mLOVackzzKBIbgX8m WSYkhYFkyFxrGM3lTNDatj mtn379AkBr FEB0NSJbwDBqC7WvsQ5zLt LpOZPoWKOgT3YetIJqGRtg E549AEulWrO6CGAcxfHpT5 FsLWFsaWdu CyI0n3Y0Co9JBN9akDS0F5 OyZca7FMOysZcpIP1myWEu KWjiSm5qlUhcyPcmXA1xDJ BpbjtwYWRk xC8nXRFcuIPjxCqsWV3jOE Rpffgor326DpJzCSB1SKUa fZQcU5JttL0aQfSeSWRhCJ FpR7NpeQMw YGqmW185KRnuGnO9DUDdai BxL0KxTMZjuEsjXaY6u3Z5 Cf2TnHYfPKKbEB55KQ99OR 19O3JiUtyj dGFibGU+PHRhYmxlIHdpZH JtVJkyUARnTmIejOqmIE5s Dz2dSBMdEHIdjTxmsHImAg Rek2zuRPAy NDrcNN9kbGtoB4KxaPW9RO Otr3k6Tr00M27rB6ZziSQ+ OBDilKI8pXZ5kJ2lTyWtDc K6KMhmY106 OvGnsJEaFqbyy9qdu5mdlE u1ZmCtXQFuaaVwkDgzHUX1 v9UcBm35E98rVFptMYUjTJ IyMCUiIHZh aRfwzl5rbV6hCw0+PGNvbC L2vNT0pP2bFmSdIuB7WGxy A110CwUhzMTqYmdnS42wC0 JvdXA+PHRy Wbr8BVSqaLqvDP1foUWdGU axFh2zSXF8RkRqJaCiDCrp L4RoDEKxcsjyixygmEK1IX WcCIJclC81 Kg8qmCigZs8hDNLzGER0IE NzlOQbZ5CzeF4bZtMvTITt EXDzV8HmcXXqLOfqQ013SG kzVfU6VSJc luQlW4ZaKGKzaKffItF9d4 A1Ga5PhQszuSMpUQ4jSfAw DIa9T5QhLaq0XREqpPieDK 0ncGFkZGlu Lk7drWixhHmmSY9cEEVzkg jcx738XmSyv7muKTEbyVLo SEauCJN4O18zd3R8DQJeNI MfNZR7vYM0 jK0hwCgsdotadUZwtIenyr KolXtfNQmhLVpnP983FSHf kXzrWxJNKvs8Z2MiHnx1UV EmeEwmCB3p xFMcYTrkPb3ltXzrfExrQC 9zPXDuxdxoo032NcFkm7oo CJJezKMwDXjzKXO2I67vw8 Y6IEFlKKMm UXN7kYH3pO0qbTdlraxjwJ VmdDsgdmVydGljYWwtYWxp P969WQAtgMkdDp8VKab7F0 BfEqf0CUId kFadFN6fvCDpCQwcDy3owL qlnIhjFM8kTGTrlwowd061 DfOyf4kwVHVmsFKyPQycSC V6C68kc2E6 NUArXPOiQSH2rKS9kA9pcW lnbjogbGVmdDsgdmVydGlj CBggYCidO891BWUaeOhvOq BheWVyOjwv dGQ+SZ64uw09Y5WmBbhhOa x8OUHaPTK8sJA6yV4cLIWt QVwfa7F5rGD8T9TabgCotc 5yd4rjJZNg ZTog (more content not included)... Normal [facility] BhCG Quanton 03-24-2022 HCG.beta subunit Qn 1 m[IU]/mL Normal 1-3 [facility] Comment on above: Result Comment: GEST ATIONAL AGE HCG RANGE (mIU/mL) NON- <1-3 0.2-1 WEEKS 5-50 1-2 WEEKS 50-500 2-3 WEEKS 100-5,000 3-4 WEEKS 500-10,000 4-5 WEEKS 1,000-50,000 5-6 WEEKS 10,000-100,000 6-8 WEEKS 15,000-200,000 8-12 WEEKS 10,000-100,000 Performed By: #### 2 [id number] #### [facility] [address] [place] [address] CHEMISTRYOrdered By: SYSTEM SYSTEM on 03-24-2022 HCG.beta subunit Qn 1 m[IU]/mL Normal 1 - 3 mIU/mL FTM C Remisol CNPNon 03-24-2022 CNPN Telephone ([facility]) PRINCESS CANTU ([id number]) 1995 F Date Time Provider Department 03/24/22 KAVITA SWEET [facility] During your visit today, we recorded the following information about you: Vee Garner, RN 03/24/2022 9:34 AM Signed calling today. [...] Please advise if pt to keep appt 10/10 or wait to see results of HCG [...] Fully Assessed Reason for Visit: Bleeding With [04618] Primary Visit Diagnosis:Bleeding in early [O20.9] Order(s):HCG QUANTITATIVE [SQHCGQT] Order #: [id number] FUTURE Prescriptions as of 03/24/2022 - metroNIDAZOLE [...] Encounter Status:Closed by BRENDAN SOUZA on 03/24/22 [facility] Consent for Treatmenton Consent for Treatment [id number] 0CD:127 [facility] Physician Orderon 03-24-2022 Physician Order [id number] 0CD:127 [facility] CNPNon 03-19-2022 CNPN Telephone ([facility]) PRINCESS CANTU ([id number]) 1995 F Date Time Provider Department 03/19/22 GEORGIA DWYER [facility] During your visit today, we recorded the [...] Status:Closed by MARY ONOFRE on 03/19/22 Normal [facility] Office Visit (Neuro-General) on 12-24-2021 [...] or bowel/bladder incontinence. She was taken to [facility] in [place]. She had lab work and a CT [...] DAILY. Vitals Vital Signs Recorded: 24Dec2021 11:32AM Nmilmasxeho39.1 F Heart Rate54 Hlpoowaa351 Zhccligcn94 Height5 ft 9 in Yubtct867 lb 1.6 oz BMI Pojjmzsmue88.03 kg/m2 BSA Calculated2.11 Tobacco Useb) No Fall Screeninga) No falls within the last year O2 Ufilgjczpf914, RA Physical Exam Constitutional: General appearance: no [...] Dec 24 2021 11:37AM EST (Author) Normal [facility] Tobacco Screening.on 022 Fall risk assessment a) [...] Known Drug Allergies Vitals Vital Signs Recorded: 35Hgn0809 01:08PM Temperature: 97 F Heart Rate: 70 [...] Nov 17 2021 1:34PM EST (Author) Normal [facility] Tobacco Screening.on 022 Adult depression screening assessment No [facility] [employer] Phone: Fall risk assessment a) No falls within the last year [facility] [employer] Phone: Tobacco use status CPHS b) No M [facility] [employer] Phone: Bact Vag Amplificationon Bact Vag Amplification Positive Criticall y abnormal Negative for bacterial vaginosis [facility] Comment on above: Performed By: #### G CCT #### [facility] INTEX Program [address] [id number] CNOVon 09-09-2021 CNOV [facility] ALONDRAPRINCESS Rosas ([id number]) 1995 F Date Time Provider Department 09/09/21 10:00 AM BRENDAN BLANKENSHIP [facility] During your visit today, we [...] History Social History Narrative Single No pregnancies 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 Portions of this record were documented by the Machinist Supervisor. I, Brendan Blankenship, have reviewed this information as documented for accuracy and performed all elements of history taking, and edited the record as necessary. 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 [...] Order(s):MITCH / TRICHOMONAS AMPLIFICATION [SQCVTV] Order #: [id number] BACTERIAL VAGINOSIS AMPLIFICATION [SQBVAMP] Order #: [id number] GC/CHLAMYDIA DNA DET [SQGCCAMP] Order #: [id number] metroNIDAZOLE (FLAGYL) 500 mg tabletTake 1 tablet [...] Encounter Status:Closed (more content not included)... Normal [facility] Mitch Trich Amplon 022 Mitch glabrata RNA Negative Normal Negative [facility] Comment on above: Performed By: #### G CCT #### [facility] [address] [phone] Mitch sp group RNA Negative Normal Negative [facility] Comment on above: Performed By: #### G CCT #### [address] [place] [phone] Trichomonas RNA Negative Normal [facility] Comment on above: Performed By: #### G CCT #### [address] [place] [phone] GC/Chlamydia Amplifon 2021 Chlamydia Amplif Negative Normal [facility] Comment on above: Performed By: #### G CCT #### [address] [place] [phone] GC Amplification Negative Normal [facility] Comment on above: Performed By: #### G CCT #### [address] [place] [phone] GC/Chlam Amp Source Cervix Normal [facility] Comment on above: Performed By: #### G CCT #### [address] [place] [phone] Bact Vag Amplificationon Bact Vag Amplification Negative Normal Negat ko for bacterial vaginosis [facility] Comment on above: Performed By: #### C VTV, BVAMP #### [facility] CLIA [id number] [address] [place] [address] [place] CNOVon 07-04-2021 CNOV Office Visit (OBGYCC ) PRINCESS CANTU ([id number]) 1995 F [facility] Date Time Provider Department 07/04/21 4:00 PM [place] DWYER [facility] During your visit today, we recorded the following information about you: Pulse Blood pressure Weight Height 74/minute 131/86 95.7 kg 1.727 m Last Period 06/07/21 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 APRN.[employer] 07/04/2021 4:39 PM Signed Princess is a [...] Ectopic0 Multiple0 Live Births0 Comment: Menarche 10 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 Some of these tests may be ordered or performed by your primary care doctor. Pap test screening The pap test loo (more content not included)... Normal [facility] Mitch Trich Amplon 021 Mitch glabrata RNA Negative Normal Negative [facility] Comment on above: Performed By: #### C VTV, BVAMP #### [facility] CLIA [id number] [address] [place] [address] [place] Mitch sp group RNA Negative Normal Negative [facility] Comment on above: Performed By: #### C VTV, BVAMP #### [facility] CLIA [id number] [address] [place] [address] [place] Trichomonas RNA Negative Normal [facility] Comment on above: Performed By: #### C VTV, BVAMP #### [facility] CLIA [id number] [address] [place] [address] [place] GC/Chlamydia Amplifon 2020 Chlamydia Amplif Negative Normal [facility] Comment on above: Performed By: #### G CCT #### [facility] [address] [address] GC Amplification Negative Normal [facility] Comment on above: Performed By: #### G CCT #### [address] [place] [address] GC/Chlam Amp Source Cervix Normal [facility] Comment on above: Performed By: #### G CCT #### [address] [place], [place] [address] Tobacco Screening.on 021 Fall risk assessment a) [...] trachomatis and Neisseria gonorrhoeae testing on specific luj-UEM-llbvpslo sample types (female urine samples) have been validated by [facility]. This laboratory is certified by CLIA [...] trachomatis and Neisseria gonorrhoeae testing on specific okn-QPI-brwxxnda sample types (female urine samples) have been validated by [facility]. This laboratory is certified by CLIA to perform high complexity testing. Samples from all other sites are not validated for this method. TSHon 12-24-2020 TSH Qn 2.30 m[IU]/L Normal 0.44 - 3.98 [facility] Comment on above: Result Comment: TSH testing is performed using different testing methodology at [facility] than at other [facility]. Direct result comparisons should only be made within the same method. Performed By: #### T SH2 #### [address] [address] TSH - Thyroid Stimulating Ho ti, Serumon 12-24-2020 TSH Qn 2.30 m[IU]/L See Below [employer] Phone: Comment on above: Reference Range: 0.4 4 - 3.98 TSH testing is performed using different testing methodology at [facility] than at other [facility]. Direct result comparisons should only be made within the same method. Tobacco Screening.on 021 Fall risk assessment a) No falls within the last year [employer] Phone: Tobacco use status CPHS b) No M [employer] Phone: CBCon 08-14-2020 Erythrocyte distribution width (RBC) [Ratio] 13.2 % Normal 11.5 - 14.5 [facility] Comment on above: Performed By: #### C BC #### [address] [address] Hematocrit (Bld) [Volume fraction] 39.5 % Normal 36.0 - 46.0 [facility] Comment on above: Performed By: #### C BC #### [address] [address] Hemoglobin (Bld) [Mass/Vol] 13.0 g/dL Normal 12.0 - 16.0 [facility] Comment on above: Performed By: #### C BC #### [address] [address] MCHC (RBC) [Mass/Vol] 32.9 g/dL Normal 32.0 - 36.0 [facility] Comment on above: Performed By: #### C BC #### [address] [address] MCV (RBC) [Entitic vol] 91 fL Normal 80 - 100 [facility] Comment on above: Performed By: #### C BC #### [address] [address] NUCLEATED RBC 0.0 /100 WBC Normal 0.0 - 0.0 [facility] Comment on above: Performed By: #### C BC #### [address] [address] Platelets (Bld) [#/Vol] 235 10*3/uL Normal 150 - 450 [facility] Comment on above: Performed By: #### C BC #### [address] [address] RBC 4.33 x10E12/L Normal 4.00 - 5.20 [facility] Comment on above: Performed By: #### C BC #### [address] [address] WBC (Bld) [#/Vol] 5.8 10*3/uL Normal 4.4 - 11.3 [facility] Comment on above: Performed By: #### C BC #### [address] [address] COMPREHENSIVE PANELon 2020 Albumin [Mass/Vol] 4.7 g/dL Normal 3.4 - 5.0 [facility] Comment on above: Performed By: #### C MP #### [address] [address] ALP [Catalytic activity/Vol] 53 U/L Normal 33 - 110 [facility] Comment on above: Performed By: #### C MP #### [address] [address] ALT [Catalytic activity/Vol] 41 U/L Normal 7 - 45 [facility] Comment on above: Result Comment: Desiree ents treated with Sulfasalazine may generate falsely decreased results for ALT. Performed By: #### C MP #### [address] [address] Anion gap [Moles/Vol] 10 mmol/L Normal 10 - 20 [facility] Comment on above: Performed By: #### C MP #### [address] [address] AST [Catalytic activity/Vol] 27 U/L Normal 9 - 39 [facility] Comment on above: Performed By: #### C MP #### [address] [address] Bilirubin [Mass/Vol] 0.6 mg/dL Normal 0.0 - 1.2 [facility] Comment on above: Performed By: #### C MP #### [address] [address] Calcium [Mass/Vol] 9.5 mg/dL Normal 8.6 - 10.3 [facility] Comment on above: Performed By: #### C MP #### [address] [address] Chloride [Moles/Vol] 105 mmol/L Normal 98 - 107 [facility] Comment on above: Performed By: #### C MP #### [address] [address] Creatinine [Mass/Vol] 0.93 mg/dL Normal 0.50 - 1.05 [facility] Comment on above: Performed By: #### C MP #### [address] [address] GFR- AM. >60 Normal >60 [facility] Comment on above: Result Comment: CALC ULATIONS OF ESTIMATED GFR ARE PERFORMED USING THE MDRD STUDY EQUATION FOR THE IDMS-TRACEABLE CREATININE METHODS. CLIN CHEM 2007;53:766-72 Performed By: #### C MP #### [address] [address] GFR-NON AM. >60 Normal >60 [facility] Comment on above: Performed By: #### C MP #### [address] [address] Glucose [Mass/Vol] 94 mg/dL Normal 74 - 99 [facility] Comment on above: Performed By: #### C MP #### [address] [address] HCO3 (Bld) [Moles/Vol] 28 mmol/L Normal 21 - 32 [facility] Comment on above: Performed By: #### C MP #### [address] [place] [address] Potassium [Moles/Vol] 4.4 mmol/L Normal 3.5 - 5.3 [facility] Comment on above: Performed By: #### C MP #### [address] [place] [address] Protein [Mass/Vol] 7.3 g/dL Normal 6.4 - 8.2 [facility] Comment on above: Performed By: #### C MP #### [address] [place] [address] Sodium [Moles/Vol] 139 mmol/L Normal 136 - 145 [facility] Comment on above: Performed By: #### C MP #### [address] [place] [address] Urea nitrogen [Mass/Vol] 13 mg/dL Normal 6 - 23 [facility] Comment on above: Performed By: #### C MP #### [address] [place] [address] Hematologyon 08-14-2020 Hematocrit (Bld) [Volume fraction] 39.5 % See Below [facility] DO Work Phone: Comment on above: Reference Range: 36. 0 - 46.0 Hemoglobin (Bld) [Mass/Vol] 13.0 g/dL See Below [facility] DO Work Phone: Comment on above: Reference Range: 12. 0 - 16.0 MCV (RBC) [Entitic vol] 91 fL 80 - 100 M P-Neurolog -[facility] DO Work Phone: Platelets (Bld) [#/Vol] 235 {x10E9/L} 150 - 450 -Neurolog -[facility] DO Work Phone: RBC (Bld) [#/Vol] 4.33 {x10E12/L} See Below [facility] DO Work Phone: Comment on above: Reference Range: 4.0 0 - 5.20 WBC (Bld) [#/Vol] 5.8 {x10E9/L} 4.4 - 11.3 MP-N eurolog y-[place] [facility] DO Work Phone: WBC (Bld) [#/Vol] 0.0 {/100_WBC} 0.0 - 0.0 MP- Neurolog y-[place] [facility] DO Work Phone: LAMOTRIGINE- LAMICTALon - LAMOTRIGINE- LAMICTAL 6.4 ug/mL Normal 2.5 - 15.0 [facility] Comment on above: Performed By: #### L AMOT #### [facility] [address] [place] [address] Lamotrigine Level, Serumon 0 08-14-2020 Lamotrigine [Mass/Vol] 6.4 ug/mL 2.5 - 15.0 MP -Neurolog y[facility] [facility] DO Work Phone: Metabolic Panelon 08-14-2020 ALP [Catalytic activity/Vol] 53 U/L 33 - 110 MP-Neurolog y-[place] [facility] DO Work Phone: Anion gap [Moles/Vol] 10 mmol/L 10 - 20 MP- Neurolog y-[place] [facility] DO Work Phone: Bilirubin [Mass/Vol] 0.6 mg/dL 0.0 - 1.2 MP-N eurolog y-[place] [facility] DO Work Phone: Calcium [Mass/Vol] 9.5 mg/dL 8.6 - 10.3 MP-Jozef rolog y-[place] [facility] DO Work Phone: Chloride [Moles/Vol] 105 mmol/L 98 - 107 MP-N eurolog y-[place] [facility] DO Work Phone: CO2 [Moles/Vol] 28 mmol/L 21 - 32 MP-Neurol og y-[place] [facility] DO Work Phone: Creatinine [Mass/Vol] 0.93 mg/dL See Below - [facility] christina-[place] [facility] DO Work Phone: Comment on above: Reference Range: 0.5 0 - 1.05 Glucose [Mass/Vol] 94 mg/dL 74 - 99 -[facility] y-[place]ugene SJW DO Work Phone: Potassium [Moles/Vol] 4.4 mmol/L 3.5 - 5.3 - [facility]ugene [facility] DO Work Phone: Protein [Mass/Vol] 7.3 g/dL 6.4 - 8.2 -[facility] christinaEugene [facility] DO Work Phone: Sodium [Moles/Vol] 139 mmol/L 136 - 145 [facility] Work Phone: Urea nitrogen [Mass/Vol] 13 mg/dL 6 - 23 -[facility] christinaEugene [facility] DO Work Phone: Otheron 08-14-2020 Albumin BCP dye [Mass/Vol] 4.7 g/dL 3.4 - 5.0 -[facility] christinaEugene [facility] DO Work Phone: ALT With P-5'-P [Catalytic activity/Vol] 41 U/L 7 - 45 [facility] Work Phone: Comment on above: Patients treated wit h Sulfasalazine may generate falsely decreased results for ALT. AST With P-5'-P [Catalytic activity/Vol] 27 U/L 9 - 39 [facility] Work Phone: Erythrocyte distribution width (RBC) [Ratio] 13.2 % See Below -[facility] DO Work Phone: Comment on above: Reference Range: 11. 5 - 14.5 MCHC (RBC) [Mass/Vol] 32.9 g/dL See Below MP- Neurolog Yolanda MCKENNA DO Work Phone: Comment on above: Reference [...] areas of abnormal enhancement after contrast administration. [employer] EXAMINATION: MRI BRA IN W WO CONTRAST [...] The calvarium and soft tissues are unremarkable. [employer] [place], [employer] Incoming Radiant Results From Motility Count/Wireless Seismic - 05/09/2020 3:02 PM EDT EXAMINATION: MRI [...] areas of abnormal enhancement after contrast administration. [place] MRI BRAIN W WO CONTRAST EXAMINATION: [...] David Winter MD 05/09/20 Final result Normal [facility] CBC With Platelet and Differ entialon 04-19-2020 Basophils (Bld) [#/Vol] 0.1 10*3/uL Normal 0.0-0.2 [facility] Comment on above: Performed By: #### C BCWD #### [facility] [address] [place] [address] Basophils/100 WBC (Bld) 0.4 % Normal [facility] Comment on above: Performed By: #### C BCWD #### [facility] [address] [place] [address] Eosinophils (Bld) [#/Vol] 0.5 10*3/uL Normal 0.0-0.7 [facility] Comment on above: Performed By: #### C BCWD #### [facility] [address] [place] [address] Eosinophils/100 WBC (Bld) 4.2 % Normal [facility] Comment on above: Performed By: #### C BCWD #### [facility] [address] [place] [address] Erythrocyte distribution width (RBC) [Ratio] 12.5 % Normal 11.5-14.5 [facility] Comment on above: Performed By: #### C BCWD #### [facility] [address] [place] [address] Hematocrit (Bld) [Volume fraction] 39.4 % Normal 37.0-47.0 [facility] Comment on above: Performed By: #### C BCWD #### [facility] [address] [place] [address] Hemoglobin (Bld) [Mass/Vol] 13.3 g/dL Normal 12.0-16.0 [facility] Comment on above: Performed By: #### C BCWD #### [facility] [address] [place] [address] Lymphocytes (Bld) [#/Vol] 3.2 10*3/uL Normal 1.0-4.8 [facility] Comment on above: Performed By: #### C BCWD #### [facility] [address] [place] [address] Lymphocytes/100 WBC (Bld) 26.9 % Normal [facility] Comment on above: Performed By: #### C BCWD #### [facility] [address] [place] [address] MCH (RBC) [Entitic mass] 29.8 pg Normal 27.0-31.3 [facility] Comment on above: Performed By: #### C BCWD #### [facility] [address] [place] [address] MCHC (RBC) [Mass/Vol] 33.8 % Normal 33.0-37.0 [facility] Comment on above: Performed By: #### C BCWD #### [facility] [address] [place] [address] MCV (RBC) [Entitic vol] 88.4 fL Normal 82.0-100.0 [facility] Comment on above: Performed By: #### C BCWD #### [facility] [address] [place] [address] Monocytes (Bld) [#/Vol] 0.8 10*3/uL Normal 0.2-0.8 [facility] Comment on above: Performed By: #### C BCWD #### [facility] [address] [place] [address] Monocytes/100 WBC (Bld) 6.8 % Normal [facility] Comment on above: Performed By: #### C BCWD #### [facility] [address] [place] [address] Neutrophils (Bld) [#/Vol] 7.3 10*3/uL Critically high 1.4-6.5 [facility] Comment on above: Performed By: #### C BCWD #### [facility] [address] [place] [address] Neutrophils/100 WBC (Bld) 61.7 % Normal [facility] Comment on above: Performed By: #### C BCWD #### [facility] [address] [place] [address] Platelets (Bld) [#/Vol] 314 10*3/uL Normal 130-400 [facility] Comment on above: Performed By: #### C BCWD #### [facility] [address] [place] [address] RBC (Bld) [#/Vol] 4.45 10*6/uL Normal 4.20-5.40 [facility] Comment on above: Performed By: #### C BCWD #### [facility] [address] [place] [address] WBC (Bld) [#/Vol] 11.9 10*3/uL Critically high 4.8-10.8 [facility] Comment on above: Performed By: #### C BCWD #### [facility] [address] [place] [address] CT HEAD WO CONTRASTon 2019 CT HEAD [...] De Jesus DO 04/19/20 Final result Normal [facility] Comprehensive Metabolic Pane crescencio 04-19-2020 Albumin [Mass/Vol] 4.9 g/dL Critically high 3.5-4.6 [facility] Comment on above: Performed By: #### C MP #### [facility] [address] [place] [address] ALP [Catalytic activity/Vol] 40 U/L Normal 40-130 [facility] Comment on above: Performed By: #### C MP #### [facility] [address] [place] [address] ALT [Catalytic activity/Vol] 17 U/L Normal 0-33 [facility] Comment on above: Performed By: #### C MP #### [facility] [address] [place] [address] Anion gap [Moles/Vol] 14 mmol/L Normal 9-15 [facility] Comment on above: Performed By: #### C MP #### [facility] [address] [place] [address] AST [Catalytic activity/Vol] 17 U/L Normal 0-35 [facility] Comment on above: Performed By: #### C MP #### [facility] [address] [place] [address] Bilirubin [Mass/Vol] mg/dL Normal 0.2-0.7 [facility] Comment on above: Performed By: #### C MP #### [facility] [address] [place] [address] Calcium [Mass/Vol] 10.0 mg/dL Critically high 8.5-9.9 [facility] Comment on above: Performed By: #### C MP #### [facility] [address] [place] [address] Chloride [Moles/Vol] 101 mmol/L Normal 95-107 [facility] [facility] Comment on above: Performed By: #### C MP #### [facility] [address] [place] [address] CO2 [Moles/Vol] 24 mmol/L Normal 20-[address] [facility] Comment on above: Performed By: #### C MP #### [facility] [address] [place] [address] Creatinine [Mass/Vol] 0.87 mg/dL Normal 0.50-0.90 [facility] Comment on above: Performed By: #### C MP #### [facility] [address] [place] [address] GFR/1.73 sq M predicted among blacks MDRD (S/P/Bld) [Vol rate/Area] mL/min/{1.73_m2} Normal >60 [facility] Comment on above: Result Comment: >60 mL/min/1.73m2 EGFR, calc. for ages 18 and older using the MDRD formula (not corrected for weight), is valid for stable renal function. Performed By: #### C MP #### [facility] [address] [place] [address] GFR/1.73 sq M.predicted MDRD (S/P/Bld) [Vol rate/Area] mL/min/{1.73_m2} Normal >60 [facility] Comment on above: Result Comment: >60 mL/min/1.73m2 EGFR, calc. for ages 18 and older using the MDRD formula (not corrected for weight), is valid for stable renal function. Performed By: #### C MP #### [facility] [address] [place] [address] Globulin (S) [Mass/Vol] 3.1 g/dL Normal 2.3-3.5 [facility] Comment on above: Performed By: #### C MP #### [facility] [address] [place] [address] Glucose [Mass/Vol] 94 mg/dL Normal 70-99 [facility] Comment on above: Performed By: #### C MP #### [facility] [address] [place] [address] Potassium [Moles/Vol] 3.9 mmol/L Normal 3.4-4.9 [facility] Comment on above: Performed By: #### C MP #### [facility] [address] [place] [address] Protein [Mass/Vol] 8.0 g/dL Normal 6.3-8.0 [facility] Comment on above: Performed By: #### C MP #### [facility] [address] [place] [address] Sodium [Moles/Vol] 139 mmol/L Normal 135-144 [facility] Comment on above: Performed By: #### C MP #### [facility] [address] [place] [address] Urea nitrogen [Mass/Vol] 12 mg/dL Normal 6-20 [facility] Comment on above: Performed By: #### C MP #### [facility] [address] [place] [address] Lactic Acidon 04-19-2020 Lactate [Moles/Vol] 1.8 mmol/L Normal 0.5-2.2 [facility] Comment on above: Performed By: #### L ACID #### [facility] [address] [place] [address] Prolactinon 04-19-2020 Prolactin 160.8 ng/mL Normal [facility] Comment on above: Result Comment: Defa ult Normal Ranges Female Male Non: 4.8-23.3 4.0-15.2 Performed By: #### P JAISON #### [facility] [address] [place] [address] Serum HCG Qualitativeon HCG.beta subunit Qn Negative Normal [facility] Comment on above: Performed By: #### S HCG #### [facility] [address] [place] [address] Urinalysis, reflex to cultur emily 04-19-2020 Urine Reflexed to Culture Not Indicated Normal [facility] Comment on above: Performed By: #### U AR #### [facility] [address] [place] [address] Bilirubin Ql (U) Negative Normal Negative [facility] Comment on above: Performed By: #### U AR #### [facility] [address] [place] [address] Clarity (U) Clear Normal Clear [facility] Comment on above: Performed By: #### U AR #### [facility] [address] [place] [address] Color (U) Yellow Normal Straw/[place] [facility] Comment on above: Performed By: #### U AR #### [facility] [address] [place] [address] Glucose Ql (U) Negative Normal Negative [facility] Comment on above: Performed By: #### U AR #### [facility] [address] [place] [address] Hemoglobin Ql (U) Trace-intact Normal Negative [facility] Comment on above: Performed By: #### U AR #### [facility] [address] [place] [address] Ketones Ql (U) Negative Normal Negative [facility] Comment on above: Performed By: #### U AR #### [facility] [address] [place] [address] Leukocyte esterase Test strip Ql (U) Negative Normal Negative [facility] Comment on above: Performed By: #### U AR #### [facility] [address] [place] [address] Nitrite Ql (U) Negative Normal Negative [facility] Comment on above: Performed By: #### U AR #### [facility] [address] [place] [address] pH (U) 6.0 [pH] Normal 5.0-9.0 [facility] Comment on above: Performed By: #### U AR #### [facility] [address] [place] [address] Protein Ql (U) Negative Normal Negative [facility] Comment on above: Performed By: #### U AR #### [facility] [address] [facility] [place] [address] Specific gravity (U) [Rel density] 1.020 Normal 1.005-1.03 [facility] Comment on above: Performed By: #### U AR #### [facility] [address] [facility] [address] Urobilinogen Qn (U) 0.2 {Alan'U}/dL Normal < 2.0 [facility] Comment on above: Performed By: #### U AR #### [facility] [address] [facility] [address] Urine Microscopicon 04-19-20 20 Epithelial cells LM Ql (Urine sed) 0-2 Normal [facility] Comment on above: Performed By: #### U ARELY #### [facility] [address] [facility] [address] RBC (U) [#/Vol] 0-2 Normal 0-[address] [facility] Comment on above: Performed By: #### U ARELY #### [facility] [address] [facility] [address] WBC (U) [#/Vol] 0-2 Normal 0-[address] [facility] Comment on above: Performed By: #### U ARELY #### [facility] [address] [facility] [address] CBC Auto Differentialon 10-0 Basophils (Bld) [#/Vol] 0.1 10*3/uL 0 - 0.2 K/u L [facility], [place] Basophils/100 WBC (Bld) 0.4 % M [facility], [place] Eosinophils (Bld) [#/Vol] 0.5 10*3/uL 0 - 0.7 K/uL [place] Eosinophils/100 WBC (Bld) 4.2 % [place] Erythrocyte distribution width (RBC) [Ratio] 12.5 % 11.5 - 14.5 % [place] Hematocrit (Bld) [Volume fraction] 39.4 % 37 - 47 % [place] Hemoglobin (Bld) [Mass/Vol] 13.3 g/dL 12 - 16 g/dL [place] Interpretation and review of laboratory results Abnormal [place] Lymphocytes (Bld) [#/Vol] 3.2 10*3/uL 1 - 4.8 K/uL [place] Lymphocytes/100 WBC (Bld) 26.9 % [place] MCH (RBC) [Entitic mass] 29.8 pg 27 - 31.3 pg [place] MCHC (RBC) [Mass/Vol] 33.8 % 33 - 37 % [place] MCV (RBC) [Entitic vol] 88.4 fL 82 - 100 fL [place] Monocytes (Bld) [#/Vol] 0.8 10*3/uL 0.2 - 0.8 K /uL [place] Monocytes/100 WBC (Bld) 6.8 % M [place], [place] Neutrophils Absolute 7.3 K/uL High 1.4 - 6.5 K/uL [place] Neutrophils/100 WBC (Bld) 61.7 % [place] Platelets (Bld) [#/Vol] 314 10*3/uL 130 - 400 K /uL [place] RBC (Bld) [#/Vol] 4.45 10*6/uL [place] WBC (Bld) [#/Vol] 11.9 10*3/uL High 4.8 - 10.8 K/uL [place] Comprehensive Metabolic Pane crescencio 04-18-2020 Albumin [Mass/Vol] 4.9 g/dL High 3.5 - 4.6 g/dL [place] ALP [Catalytic activity/Vol] 40 U/L 40 - 130 U/L [place] ALT [Catalytic activity/Vol] 17 U/L 0 - 33 U/L [place] Anion gap [Moles/Vol] 14 mmol/L [place] AST [Catalytic activity/Vol] 17 U/L 0 - 35 U/L [place] Bilirubin Ql (U) <0.2 0.2 - 0.7 mg/dL [place] Calcium [Mass/Vol] 10.0 mg/dL High 8.5 - 9.9 mg/dL [place] Chloride [Moles/Vol] 101 mmol/L [place] CO2 [Moles/Vol] 24 mmol/L [place] Creatinine [Mass/Vol] 0.87 mg/dL 0.5 - 0.9 mg/dL [place] GFR >60.0 >60 [place] Comment on above: >60 mL/min/1.73m2 EG FR, calc. for ages 18 and older using the MDRD formula (not corrected for weight), is valid for stable renal function. GFR Non- >60.0 >60 [place] Comment on above: >60 mL/min/1.73m2 EG FR, calc. for ages 18 and older using the MDRD formula (not corrected for weight), is valid for stable renal function. Globulin (S) [Mass/Vol] 3.1 g/dL 2.3 - 3.5 g/ dL [place] Glucose [Mass/Vol] 94 mg/dL 70 - 99 mg/dL [place] Interpretation and review of laboratory results Abnormal [place] Potassium [Moles/Vol] 3.9 mmol/L [place] Protein [Mass/Vol] 8.0 g/dL 6.3 - 8 g/dL [place] Sodium [Moles/Vol] 139 mmol/L [place] Urea nitrogen [Mass/Vol] 12 mg/dL 6 - 20 mg/dL [place] HCG Qualitative, Serumon hCG Qual Negative [place] Lactic Acid, Plasmaon 2019 Lactate [Moles/Vol] 1.8 mmol/L 0.5 - 2. 2 mmol/L [place] Microscopic Urinalysison Epithelial Cells, UA 0-2 /HPF [facility], [place] RBC (U) [#/Vol] 0-2 [facility] WBC, UA 0-2 [facility] [place] Urine Reflex to Cultureon Bilirubin Urine Negative Negative [facility] [place] Blood, Urine Trace-intact Negative [facility] [place] Clarity, UA Clear Clear [facility] [place] Color, UA Yellow Straw/Yellow [facility] [place] Glucose, Ur Negative Negative mg/dL [place] Ketones Ql (U) Negative Negative mg/dL [place] Leukocyte esterase Test strip Ql (U) Negative Negative [place] Nitrite, Urine Negative Negative [place] pH, UA 6.0 [place] Protein (U) [Mass/Vol] Negative Negative mg/d L [place] Specific [place], UA 1.020 [facility], [place] Urine Reflex to Culture Not Indicated [place] Urobilinogen, Urine 0.2 <2.0 E.U./dL [place] ECHOCARDIOGRAPHY REPORT (HL) on 05-10-2017 ECHOCARDIOGRAPHY REPORT (HL) PRINCESS CANTU [id number] 179.6F [id number] VASCULAR LABReferring: Koffi Uriarte A.Reading: CURTIS GARCIA [...] 4 CH 16.1 cm2LA Volume Indexed 21.05 ml/r7Dbqttsfgi/Systoli c FunctionMV E-wave Vmax 0.884 m/secMV deceleration time 193 msecMV A-wave Vmax 0.494 m/secLV septal e' Vmax 0.115 m/secLV lateral e' Vmax 0.189 m/secLV E:e' septal ratio 7.7 ratio [facility] PRINCESS CANTU [id number] [place] [address] [id number] 93Jackie Uriarte MDECHOCARDIOGRAPHY REPORTLV E:e' lateral ratio [...] structure. There is no evidence ofpulmonic regurgitation. [facility] [id number] [place] [address] [id number] 93Jackie Uriarte MDECHOCARDIOGRAPHY REPORTPericardium:Ther e is no [...] function.This is a normal echocardiogram.PARAS CHOW05/10/2017 10:26:53 [facility] PRINCESS CANTU [id number] [place] [address] [id number] 93Jackie roper MDECHOCARDIOGRAPHY REPORT Normal [facility] BASIC METABOLIC PANELon 04-18 Anion gap 10 mmol/L Normal 6-18 [facility] Comment on above: Order Comment: Is pa tient fasting? YES Performed By: #### L BMP, LGFRP ####[facility] Am[address]wg[address]16 [place] [address] Calcium 9.6 mg/dL Normal 8.6-10.3 [facility] Comment on above: Order Comment: Is pa tient fasting? YES Performed By: #### L BMP, LGFRP ####[facility] Kjv[address]wwuyl[address]60 [place] [address] Chloride 101 mmol/L Normal 98-107 [facility] Comment on above: Order Comment: Is pa tient fasting? YES Performed By: #### L BMP, LGFRP ####[facility] Xcqjdiajia48064 [place] [address] CO2 27 mmol/L Normal 21-32 [facility] Comment on above: Order Comment: Is pa tient fasting? YES Performed By: #### L BMP, LGFRP ####[facility] [id number] [place] [address] Creatinine 0.74 mg/dL Normal 0.5-1.05 [facility] Comment on above: Order Comment: Is pa tient fasting? YES Performed By: #### L BMP, LGFRP ####[facility] Nwckxlevra97869 [place] [address] Glucose mass conc 82 mg/dL Normal 74-99 [facility] Comment on above: Order Comment: Is pa tient fasting? YES Performed By: #### L BMP, LGFRP ####[facility] K[address]mqwjc94785 [place] [address] Potassium molar conc 4.1 mmol/L Normal 3.5-5.3 [facility] Comment on above: Order Comment: Is pa tient fasting? YES Performed By: #### L BMP, LGFRP ####[facility] [id number] [place] [address] Sodium 134 mmol/L Low 136-145 [facility] Comment on above: Order Comment: Is pa tient fasting? YES Performed By: #### L BMP, LGFRP ####[facility] Lvztvcqmit86292 [place] [address] Urea nitrogen 14 mg/dL Normal 6-23 [facility] Comment on above: Order Comment: Is pa tient fasting? YES Performed By: #### L BMP, LGFRP ####[facility] [address] [place], [place] [id number] CBC AUTOon 05-04-2017 Erythrocyte distribution width Auto Ratio (RBC) 12.8 % Normal 11.5-14.5 [facility] Comment on above: Performed By: #### L CBC ####[facility] [id number] [place] [address] Erythrocytes (RBC) 4.65 10*6/uL Normal 3.5-5.5 [facility] Comment on above: Performed By: #### L CBC ####[place] [address] Hematocrit (HCT) 41.1 % Normal 36.0-48.0 [facility] Comment on above: Performed By: #### L CBC ####[place] [address] Hemoglobin mass conc (Bld) 13.8 g/dL Normal 12.0-15.0 [facility] Comment on above: Performed By: #### L CBC ####[place] [address] MCH 29.7 pg Normal 25.4-34.6 [facility] Comment on above: Performed By: #### L CBC ####[facility] [address] [place], [place] [id number] MCHC mass conc (RBC) 33.6 g/dL Normal 30.0-36.0 [facility] Comment on above: Performed By: #### L CBC ####[facility] [id number] [place], [place] [id number] MCV 88.4 fL Normal 79.0-98.0 [facility] Comment on above: Performed By: #### L CBC ####[facility] [place], [place] [id number] Platelet mean volume (PMV) 9.3 fL Normal 8.4-11.9 [facility] Comment on above: Performed By: #### L CBC ####[place] [address] Platelets 277 10*3/uL Normal 140-440 [facility] Comment on above: Performed By: #### L CBC ####[facility] Dtamnehtno14764 [place] [address] WBC (Leukocytes) 6.1 10*3/uL Normal 3.9-11.0 [facility] Comment on above: Performed By: #### L CBC ####[facility] Mllevgaphj25479 [place] [address] GLOMERULAR FILTRATION RATE E STon 05-04-2017 eGFR (non-black) mL/min/{1.73_m2} Normal > 60 [facility] Comment on above: Order Comment: Is pa tient fasting? YES Performed By: #### L BMP, LGFRP ####[facility] F[address]hplvcq81885 [place] [address] IF AMER > 90 Normal > 60 [facility] Comment on above: Order Comment: Is pa tient fasting? YES Result Comment: Effe ctive 12/12/14:CKD-EPI equation / based on IDMS traceable creatinine.Continue to use the CREAT CLR-DOSE ([place]gro[place]-Gault)value for determining medication dose. Performed By: #### L BMP, LGFRP ####[facility] Zywwfhnydh[address]498 [place] [address] Vital Signs Date Time Vital Sign Value Performing Clinician Yael murguia 07-31-2022 10:54-0500 Body height 175.26 cm Koffi Rosas [employer] Work Phone: [employer] Work Phone: 07-31-2022 10:54-0500 Body mass index (BMI) [Ratio] 31.01 kg/m2 Koffi Rosas [employer] Work Phone: [employer] Work Phone: 07-31-2022 10:54-0500 Body surface area Derived from formula 2.11 m2 Koffi Clementeson Work Phone: [employer] Work Phone: 01-13-2023 10:54-0500 Body temperature 97.6 [degF] Koffi Uriarte Work Phone: KO-RZTQ-[place] Work Phone: 07-31-2022 10:54-0500 Body weight 95.26 kg Koffi Uriarte Work Phone: RW-OBWI-[place]ka [place] Work Phone: 07-31-2022 10:54-0500 Diastolic blood pressure 87 mm[Hg] Koffi Uriarte Work Phone: GF-MEYF-Xrxn [place] Work Phone: 07-31-2022 10:54-0500 Heart rate 76 /min Koffi Uriarte Work Phone: NB-WPPJ-Ixki [place] Work Phone: 07-31-2022 10:54-0500 Respiratory rate 18 /min Koffi Uriarte Work Phone: QR-RBYA-Qxat [place] Work Phone: 07-31-2022 10:54-0500 Systolic blood pressure 121 mm[Hg] Koffi Uriarte Work Phone: IM-XROX-Deqq [place] Work Phone: 12-24-2021 11:32-0400 Body height 175.26 cm Koffi Uriarte Work Phone: OB-Rrcizziph-Ckku [place] [employer] DO Work Phone: 12-24-2021 11:32-0400 Body mass index (BMI) [Ratio] 31.03 kg/m2 Koffi Uriarte Work Phone: IZ-Zgkqimqkb-Fjwg [place] [employer] DO Work Phone: 12-24-2021 11:32-0400 Body surface area Derived from formula 2.11 m2 Koffi Uriarte Work Phone: QZ-Wwyggckim-Rzsu [place] [employer] DO Work Phone: 12-24-2021 11:32-0400 Body temperature 97.1 [degF] Koffi Uriarte Work Phone: [facility] DO Work Phone: 12-24-2021 11:32-0400 Body weight 95.3 kg Koffi Uriarte Work Phone: [facility] DO Work Phone: 12-24-2021 11:32-0400 Diastolic blood pressure 76 mm[Hg] Koffi Uriarte Work Phone: [facility] DO Work Phone: 12-24-2021 11:32-0400 Heart rate 54 /min Koffi Uriarte Work Phone: [facility] DO Work Phone: 12-24-2021 11:32-0400 SaO2% (BldA) [Mass fraction] 100 % Koffi Uriarte Work Phone: [facility] DO Work Phone: 12-24-2021 11:32-0400 Systolic blood pressure 114 mm[Hg] Koffi Uriarte Work Phone: [facility] DO Work Phone: 11-17-2021 13:08-0400 Body height 172.72 cm Koffi Uriarte Work Phone: [facility] Work Phone: 11-17-2021 13:08-0400 Body mass index (BMI) [Ratio] 32.39 kg/m2 Koffi Uriarte Work Phone: [facility] Work Phone: 11-17-2021 13:08-0400 Body surface area Derived from formula 2.1 m2 Koffi Uriarte Work Phone: WC-CVTE-[place]ywk [place] Work Phone: 11-17-2021 13:08-0400 Body temperature 97 [degF] Koffi Uriarte Work Phone: XZ-SGPF-Rhlo [place] Work Phone: 11-17-2021 13:08-0400 Body weight 96.62 kg Koffi Uriarte Work Phone: XW-BRTT-Lowj [place] Work Phone: 11-17-2021 13:08-0400 Diastolic blood pressure 84 mm[Hg] Koffi Uriarte Work Phone: DN-DMWV-Xloy [place] Work Phone: 11-17-2021 13:08-0400 Heart rate 70 /min Koffi Uriarte Work Phone: AB-AXPK-Mhbj [place] Work Phone: 11-17-2021 13:08-0400 Respiratory rate 18 /min Koffi Uriarte Work Phone: OJ-ZQBT-Qlqy [place] Work Phone: 11-17-2021 13:08-0400 SaO2% (BldA) [Mass fraction] 96 % Koffi Uriarte Work Phone: BE-ILFW-Kfan [place] Work Phone: 11-17-2021 13:08-0400 Systolic blood pressure 126 mm[Hg] Koffi Uriarte Work Phone: JB-BQVJ-Brup [place] Work Phone: 06-25-2021 10:54-0500 Body height 172.72 cm Koffi Uriarte Work Phone: CR-Lcgzbsjlm[facility] S[facility] DO Work Phone: 06-25-2021 10:54-0500 Body mass index (BMI) [Ratio] 32.08 kg/m2 Koffi Uriarte Work Phone: [facility] DO Work Phone: 06-25-2021 10:54-0500 Body surface area Derived from formula 2.09 m2 Koffi Uriarte Work Phone: [facility] DO Work Phone: 06-25-2021 10:54-0500 Body temperature 97.1 [degF] Koffi Uriarte Work Phone: [facility] DO Work Phone: 06-25-2021 10:54-0500 Body weight 95.71 kg Koffi Uriarte Work Phone: [facility] DO Work Phone: 06-25-2021 10:54-0500 Diastolic blood pressure 62 mm[Hg] Koffi Uriarte Work Phone: [facility] DO Work Phone: 06-25-2021 10:54-0500 Heart rate 67 /min Koffi Uriarte Work Phone: [facility] DO Work Phone: 06-25-2021 10:54-0500 Respiratory rate 18 /min Koffi Uriarte Work Phone: [facility] DO Work Phone: 06-25-2021 10:54-0500 SaO2% (BldA) [Mass fraction] 99 % Koffi Uriarte Work Phone: [facility] DO Work Phone: 06-25-2021 10:54-0500 Systolic blood pressure 131 mm[Hg] Koffi Uriarte Work Phone: [facility] DO Work Phone: 05-20-2021 15:59-0400 Body height 172.72 cm Koffi Uriarte Work Phone: GW-OPCG-[place] Work Phone: 05-20-2021 15:59-0400 Body mass index (BMI) [Ratio] 31.93 kg/m2 Koffi Uriarte Work Phone: BS-ZVZD-[place] Work Phone: 05-20-2021 15:59-0400 Body surface area Derived from formula 2.09 m2 Koffi Uriarte Work Phone: KT-LKKQ-Bimh [place] Work Phone: 05-20-2021 15:59-0400 Body temperature 98.1 [degF] Koffi Uriarte Work Phone: HF-ILTQ-Cpyz [place] Work Phone: 05-20-2021 15:59-0400 Body weight 95.26 kg Koffi Uriarte Work Phone: PX-JWGX-Xujs [place] Work Phone: 05-20-2021 15:59-0400 Diastolic blood pressure 82 mm[Hg] Koffi Uriarte Work Phone: BE-IWBZ-Rnzg [place] Work Phone: 05-20-2021 15:59-0400 Heart rate 72 /min Koffi Uriarte Work Phone: UN-YIDD-Yshd [place] Work Phone: 05-20-2021 15:59-0400 Respiratory rate 16 /min Koffi Uriarte Work Phone: BD-SJFN-Ggrv [place] Work Phone: 05-20-2021 15:59-0400 Systolic blood pressure 122 mm[Hg] Koffi Uriarte Work Phone: GZ-RYWR-Cjfs [place] Work Phone: 12-24-2020 14:45-0400 Body height 172.72 cm Koffi Uriarte Work Phone: KD-CQFP-Ugrr [place] Work Phone: 12-24-2020 14:45-0400 Body mass index (BMI) [Ratio] 30.71 kg/m2 Koffi Uriarte Work Phone: TZ-XYZM-Qryr [place] Work Phone: 12-24-2020 14:45-0400 Body surface area Derived from formula 2.05 m2 Koffi Uriarte Work Phone: SM-RCGU-Blaq [place] Work Phone: 12-24-2020 14:45-0400 Body temperature 97.8 [degF] Koffi Uriarte Work Phone: QL-JCIP-Oiqv [place] Work Phone: 12-24-2020 14:45-0400 Body weight 91.63 kg Koffi Uriarte Work Phone: OY-WLTT-Roae [place] Work Phone: 12-24-2020 12:59-0400 Body height 172.72 cm Koffi Uriarte Work Phone: HG-XEBI-Grsy [place] Work Phone: 12-24-2020 12:59-0400 Body mass index (BMI) [Ratio] 30.71 kg/m2 Koffi Uriarte Work Phone: WS-LIXM-Cwmc [place] Work Phone: 12-24-2020 12:59-0400 Body surface area Derived from formula 2.05 m2 Koffi Uriarte Work Phone: XS-ZWCY-Hfpk [place] Work Phone: 12-24-2020 12:59-0400 Body temperature 98.2 [degF] Koffi Uriarte Work Phone: SA-APKV-Udwg [place] Work Phone: 12-24-2020 12:59-0400 Body weight 91.63 kg Koffi Uriarte Work Phone: RO-KDLM-Crls [place] Work Phone: 12-24-2020 12:59-0400 Diastolic blood pressure 90 mm[Hg] Koffi Uriarte Work Phone: FY-PBXX-Yhce [place] Work Phone: 12-24-2020 12:59-0400 Heart rate 75 /min Koffi Uriarte Work Phone: VX-DGCA-Kmjd [place] Work Phone: 12-24-2020 12:59-0400 Respiratory rate 16 /min Koffi Uriarte Work Phone: QG-YVOS-Pdcm [place] Work Phone: 12-24-2020 12:59-0400 Systolic blood pressure 147 mm[Hg] Koffi Uriarte Work Phone: RD-BGMI-Xdvc [place] Work Phone: 08-14-2020 13:26-0500 BMI (Body Mass Index) 29.04 kg/m2 Koffi Uriarte CF-Xnlfkgpyg-Ebqt [place] [facility] DO Work Phone: 08-14-2020 13:26-0500 Body Temperature 97.5 [degF] Koffi Uriarte [facility] Work Phone: 08-14-2020 13:26-0500 Body weight 86.64 kg Koffi Uriarte [facility] Work Phone: 08-14-2020 13:26-0500 BP Diastolic 100 mm[Hg] Koffi Uriarte [facility] Work Phone: 08-14-2020 13:26-0500 BP Systolic 150 mm[Hg] Koffi Uriarte MP-Neurology- [facility] DO Work Phone: 08-14-2020 13:26-0500 BSA (Body Surface Area) 2 m2 Koffi Uriarte II-Civroxbes-Vtjj [place] [facility] DO Work Phone: 08-14-2020 13:26-0500 Height 172.72 cm Koffi Uriarte MP-Neurology- [facility] DO Work Phone: 05-28-2020 15:24-0500 BMI (Body Mass Index) 28.59 kg/m2 Koffi Uriarte MP-[facility] -[place] Work Phone: 05-28-2020 15:24-0500 Body Temperature 97.6 [degF] Koffi Uriarte YA-FEFY-Hjnx [place] Work Phone: 05-28-2020 15:24-0500 Body weight 85.28 kg Koffi Uriarte TQ-EHGB-Ntyp [place] Work Phone: 05-28-2020 15:24-0500 BP Diastolic 82 mm[Hg] Koffi Uriarte CL-ROCE-[place]aru [place] Work Phone: 05-28-2020 15:24-0500 BP Systolic 122 mm[Hg] Koffi Uriarte IR-LVNW-Flaa [place] Work Phone: 05-28-2020 15:24-0500 BSA (Body Surface Area) 1.99 m2 Koffi Uriarte BB-OGJG-Fdnf [place] Work Phone: 05-28-2020 15:24-0500 Height 172.72 cm Koffi Uriarte YP-WSWL-Gafr [place] Work Phone: 05-28-2020 15:24-0500 Pulse (Heart Rate) 70 /min Koffi Uriarte MP-WSPC-[place] Work Phone: 05-28-2020 15:24-0500 Respiratory Rate 18 /min Koffi Ruby Work Phone: 04-25-2020 16:01-0400 BMI (Body [...] Phone: 04-19-2020 00:00-0400 BP Diastolic 83 mm[Hg] [facility], [place] 04-19-2020 00:00-0400 BP Systolic 144 mm[Hg] [facility], [place] 04-18-2020 22:17-0400 BMI (Body Mass Index) 28.06 kg/m2 [facility], [place] 04-18-2020 22:17-0400 Body Temperature 98.91 [degF] Tu Mckenna [place], [place] 04-18-2020 22:17-0400 Body weight 86.18 kg Tu Wright [facility], [place] 04-18-2020 22:17-0400 Height 175.3 cm Tu Wright [facility], [place] 04-18-2020 22:17-0400 Pulse (Heart Rate) 105 /min Tu Barker [facility], [place] 04-18-2020 22:17-0400 Pulse Oximetry 97 % Tu Wright [facility], [place] 04-18-2020 22:17-0400 Respiratory Rate 16 /min Tu Mckenna [facility], [place] Encounters Encounter Date Encounter Type Care Provider Facility Start: 07-28-2023 End: 07-28-2023 ambulatory LISA ZIMMERMAN Not Available Start: 07-14-2023 End: 07-14-2023 ambulatory SHIMA RODAS Not Available Start: 06-30-2023 End: 07-01-2023 ambulatory SHIMA RODAS Not Available Start: 06-16-2023 End: 06-16-2023 ambulatory SHIMA RODAS Not Available Start: 06-01-2023 End: 06-01-2023 ambulatory SHIMA RODAS Not Available Start: 04-30-2023 End: 04-30-2023 ambulatory NEDRA CALDERON [facility] Ambulatory Start: 04-30-2023 End: 04-30-2023 Office outpatient visit 15 minutes Nedra Calderon MD Work Phone: [facility] Comment on above: Seizure (CMS/HCC) (P rimary Dx) Start: 11-25-2022 End: 11-26-[address] LISA ZIMMERMAN . Facility:[facility]1 Start: 11-16-2022 End: 11-17-[address] LISA ZIMMERMAN . Facility:[facility] Start: 07-31-2022 Current tobacco non- user cad cap copd pv dm Koffi Uriarte Work Phone: ZX-TJSN-[place] Work Phone: Start: 07-31-2022 Periodic preventive med est patient 18-39 yrs Koffi A Uriarte Work Phone: XO-WSWG-Skqn [place] Work Phone: Start: 07-31-[address] 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 INSIGHTS LEAD ADS MARKETING Work Phone: CB/Gynecology Comment on above: Appointment Start: 03-18-2022 AUDIT Koffi Carlson kellieon Work Phone: JT-Vobzwwvcs-Fyaszbd e ATG Access DO Work Phone: Start: 02-03-2022 ambulatory Brendan Blankenship PA-C Work Phone: OB/Gynecology Comment on above: Bacteria Vaginosis Start: 01-02-2022 AUDIT Koffi Carlson kellieon Work Phone: CN-XKXB-[place]nfw [place] Work Phone: Start: 12-24-2021 Office outpatient vi sit 15 minutes Koffi A Uriarte Work Phone: JH-Czaygczcn-Ztygplf e [employer] DO Work Phone: Start: 11-17-2021 Office outpatient vi sit 15 minutes Koffi Rosas Uriarte Work Phone: WO-FIQV-[place]rns [place] Work Phone: Start: 09-29-2021 AUDIT Koffi Alison Carlson ardson Work Phone: YS-RMXY-Rhtp [place] Work Phone: Start: 09-09-2021 End: 09-09-2021 ambulatory BRENDAN BLANKENSHIP Facility:[facility] Start: 07-04-2021 End: 07-05-2021 ambulatory GEORGIA DWYER Facility:[facility] Start: 07-04-2021 Encounter for gynecological examination (general) (routine) without abnormal findings GEORGIA DWYER [facility] Start: 06-25-2021 Office outpatient vi sit 25 minutes Koffi Alison Uriarte Work Phone: MD-Eoxseclef-Ekikakz e AMANDAW DO Work Phone: Start: 05-22-2021 Chart Update Koffi Alison Carlson ardson Work Phone: TD-ZRFF-[place]poj [place] Work Phone: Start: 05-20-2021 Office outpatient vi sit 25 minutes Koffi A Uriarte Work Phone: ZN-RUVB-Dwri [place] Work Phone: Start: 05-20-2021 Patient encounter procedure Koffi Alison Uriarte Work Phone: PY-NUYS-Tmme [place] Work Phone: Start: 03-28-2021 AUDIT Koffi Alison Rich ardson Work Phone: HX-DDGO-Bpdq [place] Work Phone: Start: 12-24-2020 Chart Update Koffi A Rich ardson Work Phone: BT-AIVO-Xwxu [place] Work Phone: Start: 12-24-2020 Office outpatient vi sit 25 minutes Koffi A Uriarte Work Phone: WT-CMSI-Rxto [place] Work Phone: Start: 08-14-2020 Patient encounter procedure Koffi Uriarte LI-Qjtupewpb-Kziotsd e SJW DO Work Phone: Start: 06-11-2020 Patient encounter procedure Koffi Uriarte KL-Tnutwrcfp-Gdtosxb e SJW DO Work Phone: Start: 05-28-2020 Patient encounter procedure Koffi Uriarte YA-ACGO-Hzsl [place] Work Phone: Start: 05-09-2020 End: 05-12-2020 Patient encounter procedure SPIKE RADHA [facility] Start: 05-09-2020 End: 05-11-2020 Subsequent hospital visit by physician Madeline Frey 1 EEG Comment on above: 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) Start: 04-25-2020 Patient encounter procedure Koffi Uriarte UO-IXOU-[place]iyk [place] Work Phone: Start: 04-19-2020 End: 04-19-2020 Emergency department patient visit [facility] Start: 04-18-2020 End: 04-19-2020 Emergency department patient visit Tu Henley Raad Work Phone: [facility] ED Comment on above: Seizure (HCC) (Prima ry Dx) Start: 03-02-2019 Patient encounter procedure Koffi Uriarte AY-WVEL-Qpxo [place] Work Phone: Start: 05-04-2017 Ambulatory Okffi Alison Uriarte Fa cility:[facility] Patient encounter status Koffi Uriarte Work Phone: YA-CIFV-Vdgu [place] Work Phone: Procedures Date Procedure Procedure [...] Start: 04-18-2020 Urinalysis microscopic only Tu Reece [facility] Work Phone: Start: 04-18-2020 Urnls dip stick/tablet rgnt auto w/o microscopy Tu Curran Work Phone: Start: 04-18-2020 Blood count complete auto&auto difrntl wbc Tu Curran Work Phone: Start: 04-18-2020 Comprehensive metabolic panel Tu Curran Work Phone: Start: 04-18-2020 Gonadotropin chorionic leonard Henley [place] Work Phone: History of No histor y of surgery Koffi Uriarte No history of surgery Shahnaz Uriarte Work Phone: Plan of Treatment Date Care Activity Detail Author Start: 10-02-2043 Zoster Vaccines (1 o f 2) Zoster Vaccines (1 of 2) [facility] Start: 02-17-2028 DTaP/Tdap/Td Vaccine s (8 - Td or Tdap) DTaP/Tdap/Td Vaccines (8 - Td or Tdap) [facility] Start: 08-02-2023 PHYSICAL, Provider: Koffi Uriarte, Status: Pen, Time: 9:00 AM PHYSICAL, Provider: Koffi Uriarte, Status: Pen, Time: 9:00 AM WX-SEQE-Sbph [place] Work Phone: Start: 08-02-2023 End: 08-02-2023 Patient encounter procedure 08/02/2023 9:00 AM EST Office Visit [facility] [address] [place] [address] [place] [address] [place], [place] [id number] [facility] Start: 07-02-2023 PAP TESTING PAP TESTING [facility] Start: 07-02-2023 Screening for malignant neoplasm of cervix [facility] Start: 12-24-2022 ERIKA, Provider : Nedra Calderon, Status: Pen, Time: 10:00 AM ERIKA, Provider: Nedra Calderon, Status: Pen, Time: 10:00 AM TL-Dqvqbrhic-Skfkwcj e SJW DO Work Phone: Start: 05-22-2022 PHYSICAL, Provider: Koffi Uriarte, Status: Pen, Time: 9:50 AM PHYSICAL, Provider: Koffi Uriarte, Status: Pen, Time: 9:50 AM LG-UYLY-Egjx [place] Work Phone: Start: 03-24-2022 End: 05-24-2022 Choriogonadotropin.bet a subunit [Units/volume] in Serum or Plasma HCG QUANTITATIVE Lab Routine Bleeding in early Expected: 03/24/2022, Expires: 05/24/2022 [facility] Work Phone: Comment on above: Expected: 03/24/2022 , Expires: 05/24/2022 Start: 03-19-2022 Influenza vaccination INFLUENZA (#1) [facility] Start: 12-24-2021 Thyroid stimulating hormone measurement TSH Level [facility] Start: 12-24-2021 FUVGENERAL, Provider : Nedra Calderon, Status: Pen, Time: 11:30 AM FUVGENERAL, Provider: Nedra Calderon, Status: Pen, Time: 11:30 AM LG-Juvyrcsdg-Nybkpwq e W DO Work Phone: Start: 11-17-2021 FUV, Provider: Koffi Uriarte, Status: Pen, Time: 1:00 PM FUV, Provider: Koffi Uriarte, Status: Pen, Time: 1:00 PM BQ-XNWA-Lnkh [place] Work Phone: Start: 07-01-2021 COVID-19 VACCINE (3 - Booster for Pfizer series) COVID-19 VACCINE (3 - Booster for Pfizer series) [facility] Start: 06-25-2021 FUVGENERAL, Provider : Nedra Calderon, Status: Pen, Time: 2:00 PM FUVGENERAL, Provider: Nedra Calderon, Status: Pen, Time: 2:00 PM DY-CKRF-Bvel [place] Work Phone: Start: 06-25-2021 FUVGENERAL, Provider : Nedra Calderon, Status: Pen, Time: 11:00 AM FUVGENERAL, Provider: eNdra Calderon, Status: Pen, Time: 11:00 AM SX-TPDU-Savq [place] Work Phone: Start: 05-20-2021 FUV, Provider: Koffi Uriarte, Status: Pen, Time: 3:40 PM FUV, Provider: Koffi Uriarte, Status: Pen, Time: 3:40 PM RO-DKTB-[employer] Work Phone: Start: 03-31-2021 FUV, Provider: Koffi Uriarte, Status: Pen, Time: 2:00 PM FUV, Provider: Koffi Uriarte, Status: Pen, Time: 2:00 PM CF-JDIM-DqixF[employer] Work Phone: Start: 03-26-2021 COVID-19 Vaccine (3 - Pfizer series) COVID-19 Vaccine (3 - Pfizer series) [facility] Start: 03-19-2020 Influenza vaccination Flu vaccine (# 1) [place] Start: 03-02-2018 DTaP/Tdap/Td vaccine (7 - Td) DTaP/Tdap/Td vaccine (7 - Td) [place] Start: 03-02-2018 Urine microalbumin profile DTAP,TDAP,TD (7 - Td or Tdap) [facility] Start: 2014 Screening for malignant neoplasm of cervix [facility] Start: 10-02-2011 HEPATITIS C SCREENING HEPATITIS C [facility] Start: 10-02-2011 Hepatitis C screening Hepatitis C [facility] Start: 10-02-2011 HIV SCREENING HIV SCREENING [facility] Start: 2008 [facility] [place] [place] Start: 2005 Adult depression screening assessment DEPRESSION SCREENING [facility] Start: 2004 HPV vaccine (1 - 2-dose series) HPV vaccine (1 - 2-dose series) [place] Start: 04-09-1999 Varicella vaccination Varicell a Vaccines (1 of 2 - 2-dose childhood series) [facility] Start: 1994 Varicella vaccine (1 of 2 - 2-dose childhood series) Varicella vaccine (1 of 2 - 2-dose childhood series) [place] Start: 1993 HIV screening HIV Screening [facility] Start: 1993 Lipid panel Lipid Panel [facility] Start: 1993 Yearly Adult Physical Yearly Adult P [facility] End: 04-18-2020 CT Head WO Contrast CT Head WO Contrast Imaging STAT Once for 1 Occurrences starting 04/18/2020 until 04/18/2020 [place] Comment on above: Once for 1 Occurrenc es starting 04/18/2020 until 04/18/2020 CT Head WO Contrast CT Head WO C ontrast Imaging STAT 04/18/2020 11:15 PM EDT [place] End: 04-18-2020 Prolactin Prolactin Lab STAT One Time for 1 Occurrences starting 04/18/2020 until 04/18/2020 [place] Comment on above: One Time for 1 Occur rences starting 04/18/2020 until 04/18/[address] AT 04/18/2020 11:17 PM EDT [place] IQ-DMUC-Doza [place] Work Phone: [facility] NEGATED: Highlighted row has been ruled out! Planned Goals not documented DQ-MHYY-Mvla [place] Work Phone: Immunizations Immunization Date Immunization Notes Care Provider Radha smith 04-21-2022 influenza, injectabl e, quadrivalent, preservative free Koffi A Uriarte Work Phone: PK-ZIJT-[place]a [place] Work Phone: 04-18-2021 influenza, injectabl e, quadrivalent, preservative free Koffi A Uriarte Work Phone: ZO-JJER-[place]v [place] Work Phone: 01-29-2021 Pfizer-BioNTech COVID-19 Vacc 30 MCG/0.3ML Intramuscular Suspension Koffi A Uriarte Work Phone: AD-CWIX-Zdph [place] Work Phone: 01-08-2021 Pfizer-BioNTech COVID-19 Vacc 30 MCG/0.3ML Intramuscular Suspension Koffi A Uriarte Work Phone: JP-DVRW-Mvie [place] Work Phone: 05-09-2019 Influenza, injectabl e, Madin [place] Canine Kidney, preservative free, quadrivalent Koffi Alison [employer] Work Phone: [employer] Work Phone: 04-28-2018 influenza, injectabl e, quadrivalent, contains preservative Koffi Alison Uriarte Work Phone: [employer] Work Phone: 02-16-2018 tetanus toxoid, redu diego diphtheria toxoid, and acellular pertussis vaccine, adsorbed Koffi Rosas [employer] Work Phone: [employer] Work Phone: 05-06-2017 influenza, injectabl e, quadrivalent, preservative free Koffi Rosas [employer] Work Phone: [employer] Work Phone: 01-14-2016 pneumococcal polysaccharide vaccine, 23 valent Koffi Rosas [employer] Work Phone: [employer] Work Phone: 11-30-2014 tuberculin skin test ; purified protein derivative solution, intradermal [facility] 12-15-2013 tuberculin skin test ; purified protein derivative solution, intradermal [facility] 03-02-2008 tetanus toxoid, redu diego diphtheria toxoid, and acellular pertussis vaccine, adsorbed [facility] 02-25-2007 meningococcal polysaccharide (groups A, C, Y and W-135) diphtheria toxoid conjugate vaccine (MCV4P) [facility], [place] 02-25-2007 Meningococcal, MCV4, unspecified conjugate formulation(groups A, C, Y and W-135) [facility] 03-12-1999 diphtheria, tetanus toxoids and acellular pertussis vaccine [facility] 03-12-1999 diphtheria, tetanus toxoids and acellular pertussis vaccine, unspecified formulation Koffi Uriarte Work Phone: [employer] Work Phone: 03-12-1999 haemophilus influenz ae type b vaccine, HbOC conjugate [facility] 03-12-1999 measles, mumps and rubella virus vaccine [facility] 03-12-1999 poliovirus vaccine, inactivated [facility], [place] 03-12-1999 trivalent poliovirus vaccine, live, oral [place], [place] 01-07-1995 diphtheria, tetanus toxoids and acellular pertussis vaccine [facility] 01-07-1995 diphtheria, tetanus toxoids and acellular pertussis vaccine, unspecified formulation Koffi Rosas [employer] Work Phone: [employer] Work Phone: 10-22-1994 haemophilus influenz ae type b vaccine, conjugate unspecified formulation [place] 10-22-1994 haemophilus influenz ae type b vaccine, PRP-OMP conjugate Koffi Clementeson Work Phone: [employer] Work Phone: 10-22-1994 Hib, unspecified [place] 10-22-1994 measles, mumps and rubella virus vaccine [facility] 10-22-1994 poliovirus vaccine, inactivated [facility] 06-18-1994 hepatitis B vaccine, pediatric or pediatric/adolescent dosage Koffi Alison ClementeUriarte Work Phone: [facility] 06-18-1994 hepatitis B vaccine, unspecified formulation [facility] , [place] 04-16-1994 diphtheria, tetanus toxoids and acellular pertussis vaccine [place] 04-16-1994 diphtheria, tetanus toxoids and pertussis vaccine [facility] 04-16-1994 haemophilus influenz ae type b vaccine, conjugate unspecified formulation [facility], [place] 04-16-1994 haemophilus influenz ae type b vaccine, HbOC conjugate Brendan Blankenship PA-C Work Phone: [facility] 04-16-1994 haemophilus influenz ae type b vaccine, PRP-OMP conjugate Koffi A Uriarte Work Phone: [employer] Work Phone: 04-16-1994 Hib, unspecified [facility], [place] 04-16-1994 poliovirus vaccine, inactivated [facility] 04-16-1994 trivalent poliovirus vaccine, live, oral [facility], [place] 02-12-1994 diphtheria, tetanus toxoids and acellular pertussis vaccine [place] 02-12-1994 diphtheria, tetanus toxoids and pertussis vaccine [facility] 02-12-1994 haemophilus influenz ae type b vaccine, conjugate unspecified formulation [place] 02-12-1994 haemophilus influenz ae type b vaccine, HbOC conjugate Brendan Pattie PA-C Work Phone: [facility] 02-12-1994 haemophilus influenz ae type b vaccine, PRP-OMP conjugate Koffi Alison Chapito Work Phone: [employer] Work Phone: 02-12-1994 Hib, unspecified [facility], [place] 02-12-1994 poliovirus vaccine, inactivated [facility] 02-12-1994 trivalent poliovirus vaccine, live, oral [facility], [place] 01-08-1994 hepatitis B vaccine, pediatric or pediatric/adolescent dosage Koffi Alison Chapito Work Phone: [facility] 01-08-1994 hepatitis B vaccine, unspecified formulation [facility] , [place] 1993 diphtheria, tetanus toxoids and acellular pertussis vaccine [facility], [place] 1993 diphtheria, tetanus toxoids and pertussis vaccine [facility] 1993 haemophilus influenz ae type b vaccine, conjugate unspecified formulation [facility], [place] 1993 haemophilus influenz ae type b vaccine, HbOC conjugate Brendan Glasnilopp PA-C Work Phone: [facility] 1993 haemophilus influenz ae type b vaccine, PRP-OMP conjugate Koffi Uriarte Work Phone: UF-MAGI-Pdtp [place] Work Phone: 1993 hepatitis B vaccine, pediatric or pediatric/adolescent dosage Koffi Uriarte Work Phone: [facility] 1993 hepatitis B vaccine, unspecified formulation [place], [place] 1993 Hib, unspecified [place], [place] 1993 poliovirus vaccine, inactivated [facility] 1993 trivalent poliovirus vaccine, live, oral [facility], [place] Payers Date Payer Category Payer Unknown 2020 Unknown MMO MMO [employer] [id number] 2020-Present [phone] [address] [place] [address] PPO [id number] 2019 Unknown [id number] 1993 Unknown [id number] 1993 Unknown [id number] 1993 Unknown [id number] 1993 Unknown [id number] 1993 Unknown [id number] 1993 Unknown [id number] 1993 Unknown [id number] 1993 Unknown [id number] 1993 Unknown [id number] 1993 Unknown [id number] 1993 Unknown [id number] 1993 Unknown [id number] 1993 Unknown [id number] 1959 Unknown [id number] Unknown [id number] Social History Date Type Detail Facility Start: 04-18-2020 End: 04-30-2023 Tobacco smoking status [facility] Never smoker [facility] Start: 04-18-2020 End: 04-30-2023 Tobacco use and exposure Never used [place] Start: 04-18-2020 End: 09-09-2021 Alcohol intake Current drinker of alcohol (finding) [place] Start: 09-19-2019 History SDOH Financial 5 [place] Start: 09-19-2019 History SDOH Food Worry 1 [place] Start: 09-19-2019 History SDOH Transport Med 2 [place] Start: 04-18-2020 Alcohol Comment occasionally [facility] [place], [place] Start: 1993 Sex Assigned At Not on file [place] Start: 04-20-2023 End: 04-30-2023 Exposure to SARS-CoV-2 (event) Not sure [place] Never smoker Never smoker UQ-SYZD-Bdxb [place] Work Phone: Tobacco smoking status Never [facility] Sex Assigned At Female [facility] NEGATED: Highlighted row - - FG-PVWD-NyslJames Ruby Work Phone: NEGATED: Highlighted rowStart: NINF History of tobacco use Passive smoker [facility] Work Phone: Functional Status Date Assessment Result Facility NEGATED: Highlighted row Functional performance Functional status health issues are not documented Disease TL-AHYO-WvtuJames Ruby Work Phone: Mental Status Date Assessment Result Facility NEGATED: Highlighted row Cognitive function [Interpretation] Cognitive status health issues are not documented Disease AV-QHEM-HwxoJames Ruby Work Phone: Clinical Notes 08-09-2017 to 04-30-2023 Nedra Calderon MD - 04/30/2023 11:30 AM EDTTelephone Encounter - Mary Onofre RN - 03/24/2022 11:55 AM EDTTelephone Encounter - Kavita Sweet DO - 03/24/2022 11:37 AM EDT Note [...] 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 Patient Active Problem List Diagnosis Abnormal weight [...] 5/5 throughout all four extremities. Coordination Right: Ieneji-bt-rjxq normal.Left: Aicxvj-qz-purc normal. Physical Exam Eyes: Extraocular Movements: Extraocular [...] in 1 year documented in this encounter [facility] Work Phone: 11-25-2022 Note EXAMINATION: US PELV [...] [place] Date: 2022-11-25 17:20 [facility] 04-16-2022 Note HNO ID: [id number] Author: Brendan Blankenship PA-C Service: ? 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 I, Brendan Blankenship, have reviewed this information as documented for accuracy and performed all elements of history taking, and edited the record as necessary. ROS: SEE HPI PE: GENERAL: well-appearing, in no acute distress LUNGS: Normal inspiratory effort EXTERNAL GRINDER TOOL: Normal external genitalia, no vaginal bleeding, small [...] Medical Decision Making Level: 3 - Low [facility] 03-24-2022 Miscellaneous Notes VM left [...] move appt sooner. documented in this encounter [facility] 03-19-2022 Miscellaneous Notes LMP 02/11, +hpt. Assisted w initial OBV. Advised to take vitamin w folic acid. First trimester precautions provided. handbook sent in . documented in this encounter [facility] 02-03-2022 Miscellaneous Notes The following approved medication requests have been transmitted electronically. Signed Prescriptions Disp Refills metroNIDAZOLE (FLAGYL) 500 mg tablet 14 tablet 0 Sig: Take 1 tablet by mouth twice daily. for vaginosis. Do not drink alcohol while taking this medication MICHELEL: No Brendan Souza APRN.JUSTINE Pt reporting vag discharge/odor- same symptoms as past +BV dx. Last annual 06/2021. Req for BV medications Pending Prescriptions Disp Refills METRONIDAZOLE 500 MG TABLET 14 tablet 0 Sig: Take 1 tablet by mouth twice daily. for vaginosis. Do not drink alcohol while taking this medication MICHELLE: No documented in this encounter [facility] 09-09-2021 Note HNO ID: [id number] Author: Brendan Blankenship PA-C Service: ? 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 Portions of this record were documented by the Machinist Supervisor. I, Brendan Blankenship, have reviewed this information as documented for accuracy and performed all elements of history taking, and edited the record as necessary. 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 [...] Medical Decision Making Level: 3 - Low [facility] 07-04-2021 Note HNO ID: [id number] Author: 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 APRN.HUMAN INSIGHTS LEAD ADS MARKETING Service: ? Author Type: Nurse Practitioner Type: [...] Ectopic0 Multiple0 Live Births0 Comment: Menarche 10 Mail Technician History LMP: 06/07/2021 (Exact Date), Having periods Age at Menarche: Age at First : Age at Menopause: Mail Technician History Comments: Sexual Activity: Yes; Male; same [...] external genitalia normal, normal Bartholin's glands, urethra, Ashippun's glands, no vulvar lesions, no cervical lesions, [...] with a gentle, NON-perfumed dye-FREE soap (ie, Vanleydi, Юлия/Denise, ), same perfume/dye free type of detergents for washing undergarments, wiping [id number], sleep in loose shorts without underwear, shower immediately after intercourse/exercise, make sure perineum is gently blotted dry before dressing. Avoid scratching, scented pads/tampons/toilet papers, cranberry juice, bubble baths, and intercourse until symptoms are relieved. NO douching. If you shave, use a new razor at least twice monthly. 5) Follow up one year or sooner as needed 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 APRN.[employer] [facility] 08-09-2017 History of Past i llness Narrative Problem Noted Date Resolved Date NO SHOW 08/09/2017 08/09/2017 documented as of this encounter (statuses as of 02/03/2022) [facility] History of Past illness Narrative* Problem Noted Date Resolved Date NO SHOW 08/09/2017 08/09/2017 documented as of this encounter (statuses as of 03/19/2022) [facility] of Past illness Narrative* Problem Noted Date Resolved Date NO SHOW 08/09/2017 08/09/2017 documented as of this encounter (statuses as of 03/24/2022) [facility] No data available for this section [facility] Acute vaginitis- Primary Vaginitis and vulvovaginitis, unspecified documented in this encounter [facility] note* Diagnosis Bleeding in early - Primary Unspecified hemorrhage in early , unspecified as to episode of care documented in this encounter [facility] note* Diagnosis Seizure (CMS/HCC)- Primary Other convulsions documented in this encounter [facility] Work Phone: History of Present illness Narrative* The patient states she has been doing well with her blood pressure control since the last visit. She has no comorbid illnesses. She has no significant interval events. * Symptoms: The patient is currently asymptomatic. * Less anxiety lately. Broke up with her boyfriend. * Working in [employer] at the [employer]. * BP is much improved on lisinopril. * Saw gyne for discharge. * was told she had BV and chlamydia. * took antibiotics, got better for a few weeks and now she is having discharge again and odor. no pelvic pain. [employer] Work Phone: History of Present illness Narrative* The patient states she has been doing well with her blood pressure control since the last visit. She has no comorbid illnesses. She has no significant interval events. * Symptoms: The patient is currently asymptomatic. * Less anxiety lately. Broke up with her boyfriend. * Working in [employer] at the [employer]. * BP is much improved on lisinopril. * Saw gyne for discharge. * was told she had BV and chlamydia. * took antibiotics, got better for a few weeks and now she is having discharge again and odor. no pelvic pain. [employer] Work Phone: Hospital Discharge instructions No data available for this section [facility] No data available for this section [facility] Summary Purpose Family History No Family [...] FoundDocuments on File Type Date Recorded Patient Pain Management Nurse Expl anation ACP-Advance Directive ACP-Power of Certified Art Therapist Documents on File Type Date Recorded Patient Pain Management Nurse Expl anation ACP-Advance Directive ACP-Power of Certified Art Therapist Documents on File Type Date Recorded Patient Pain Management Nurse Expl anation Advance Directive(s) 11/30/2015 2:19 PM Reason for Referral Status Reason Specialty Diagnoses / Procedures Referre d By Contact Referred To Contact Open Radiology Diagnoses Nonintractable generalized idiopathic epilepsy without status epilepticus (HCC) Procedures MRI BRAIN W WO CONTRAST Spike Garcia MD [address] [id number] Assessments Diagnosis Nonintractable generalized idiopathic epilepsy without status epilepticus (HCC) Diagnosis Seizure (HCC) Other convulsions Discharge Instructions * Attachments The following attachments cannot be sent through Care Everywhere. * Seizure (Indonesian) documented in this encounter Additional Source Comments INFORMATION SOURCE (unrecogn ized section and content) DATE CREATED AUTHOR 01/11/2018 [facility] DATE CREATED AUTHOR AUTHOR'S ORGANIZ ATION 04/19/2020 [facility] DATE CREATED AUTHOR AUTHOR'S ORGANIZ ATION 05/11/2020 [facility] DATE CREATED AUTHOR AUTHOR'S ORGANIZ ATION 12/29/2020 [facility] DATE CREATED AUTHOR AUTHOR'S ORGANIZ ATION 04/14/2022 [facility] DATE CREATED AUTHOR AUTHOR'S ORGANIZ ATION 04/20/2022 [facility] DATE CREATED AUTHOR AUTHOR'S ORGANIZ ATION 08/11/2022 [employer] DATE CREATED AUTHOR AUTHOR'S ORGANIZ ATION 11/29/2022 [facility] DATE CREATED AUTHOR AUTHOR'S ORGANIZ ATION 12/27/2022 [facility] DATE CREATED AUTHOR AUTHOR'S ORGANIZ ATION 05/02/2023 [facility] DATE CREATED AUTHOR AUTHOR'S ORGANIZ ATION 07/30/2023 [facility] EPIC Reason for Visit (unrecogniz ed section and content) Status Reason Specialty Diagnoses / Procedures Referre d By Contact Referred To Contact Closed EEG Diagnoses Generalized idiopathic epilepsy and epileptic syndromes, not intractable, without status epilepticus Procedures EEG 16+ CHANNEL TELEMTERY 24HR Spike Garcia MD [address] [facility] [address] [place] [address] Mloz Eeg [address] [place] [address] Status Reason Specialty Diagnoses / Procedures Referre d By Contact Referred To Contact Closed Radiology Diagnoses Generalized idiopathic epilepsy and epileptic syndromes, not intractable, without status epilepticus Procedures MRI-BRAIN WO & W CONTRAST Spike Garcia MD [address] [facility] [address] [place] [address] Mloz Mri [address] [place] [address] Reason Comments Seizures Seizure like activit y [...] or prosecute any alcohol or drug abuse patient.[facility] the event this information is protected by the Federal Confidentiality of Alcohol and Drug Abuse Patient Records regulations: The Federal rules restrict any use of the information to criminally investigate or prosecute any alcohol or drug abuse patient.[facility] Hospital[facility] the event this information is protected by the Federal Confidentiality of Alcohol and Drug Abuse Patient Records regulations: The Federal rules restrict any use of the information to criminally investigate or prosecute any alcohol or drug abuse patient.[facility] Care Teams (unrecognized sec tion and content) Taffy Puller Relationship Specialty Start Date End Date Koffi Uriarte MD PCP - General Family Practice 08/17/16 Taffy Puller Relationship Specialty Start Date End Date Koffi Uriarte MD PCP - General Family Practice 08/17/16 Taffy Puller Relationship Specialty Start [place] [address] [place], [place] [id number] PCP - General 08/14/20 [place] [address] [place], [place] [id number] PCP - MMO ACO PCP 02/16/23 FOR [...] BE BASED ON THE PRIMARY CLINICAL RECORDS. [employer] provides no warranty or guarantee of the accuracy or completeness of information in this document.
== END 2023-07-31 10:24 | disposition home or self-care (01) ==
LOC: US 10:23
PROVIDERS: Visit Provider Obstetrics & Gynecology
DX: O16.3 Unspecified maternal hypertension, third trimester (principal); O36.63X0 Maternal care for excessive fetal growth, third trimester, not applicable or unspecified; Z3A.00 Weeks of gestation of pregnancy not specified
CPT/HCPCS: 59025; 76818

== ENCOUNTER 2023-07-31 10:49 | Outpatient (OUT) | payer OTHER, SELFPAY ==
--- OUTSIDE RECORDS SUMMARY | 2023-07-31 10:51 | XMS_ITS | CCD ---
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 Koffi Rosas Primary Care Dario Uriarte, Dr. Koffi Rosas Attending Dario Uriarte, Dr. Koffi Rosas Referring Koffi Oquendo MD Primary Care Provider Koffi Uriarte MD Unavailable [phone] NEDRA CALDERON Attending Unavailable KOFFI URIARTE Primary [facility] Unavailabl SHIMA Joyce Attending Unavailable SHIMA RODAS Attending Unavailable LISA ZIMMERMAN Attending Unavailable SHIMA RODAS Attending Unavailable SHIMA RODAS Attending Unavailable Allergies Allergy Classification Reported Allergen(s) Allergy Type Date of Onset Reaction(s) Facility (1 source) No Known Medication Allergies; Translations: [No Known Medication Allergies] Propensity to adverse reactions (disorder) [facility] Repository Medications Current Medications Medication [...] 120 tab(s), Refills(s) 0, [facility]acy: [id number] Start Date: 06/05/19 Status: Ordered ondansetron 4 [...] 10-02-2022 10-02-2022 Episodic Unclassified (1 source) R07.9 35714/8 Onset: 05-04-2017 Unclassified (5 sources) Patient encounter status; Translations: [Encounter for audiology evaluation] NEGATED: Highlighted row has not occurred!Residual codes; unclassified (17 sources) Disease Episodic Results Test Name Value Interpretation Reference Range Facility DHEA SERUMon 11-20-2022 Dehydroepiandrosterone (DHEA) 656 ng/dL Normal 31-701 [facility] Comment on above: Performed By: #### D LAMAR. #### [facility] [address] [place] [address] Dr. Vish Brown ANTI-MULLERIAN HORMONEon Anti-Mullerian Hormone (AMH) 4.47 ng/mL Normal [facility] Comment on above: Result Comment: For assays employing antibodies, the possibility exists for interference by heterophile antibodies in the samples.1 1.Favio Campos Interferences in Immunoassays - still a threat. Clin. Chem. 2000; 46: 3239-4917. This test was developed and its performance characteristics determined by [employer] It has not been cleared or approved by the Food and Drug Administration. Reference Range: Females 26 - 30y: 1.03 - 11.10 Median 4.20 AMH concentrations of >= 1.06 ng/mL is correlated with a better response to ovarian stimulation, produced more retrievable oocytes and higher odds of live according to Gabi et al. Fertility and Sterility. 2010: 94:3245-2903. The current AMH test method correlates with [...] tumor. Performed By: #### L BRUNA #### [facility] [address] [place] [address] Dr. Vish Brown DHEA-SULFATEon 11-17-2022 DHEA-Sulfate 449.0 ug/dL Critically high 84.8-378.0 [facility] Comment on above: Performed By: #### L [facility] #### [facility] [address] [place] [address] Dr. Vish Brown ESTRADIOLon 11-17-2022 Estradiol 34.3 pg/mL Normal [facility] Comment on above: Result Comment: Adul t Female: Follicular phase 12.5 - 166.0 Ovulation phase 85.8 - 498.0 Luteal phase 43.8 - 211.0 Postmenopausal <6.0 - 54.7 1st trimester 215.0 - >4300.0 Ele ECLIA methodology Performed By: #### E CHLOE #### [facility] [address] [place] [address] Dr. Vish Brown FSHon 11-17-2022 FSH 6.1 mIU/mL Normal [facility] Comment on above: Result Comment: Adul t Female: Follicular phase 3.5 - 12.5 Ovulation phase 4.7 - 21.5 Luteal phase 1.7 - 7.7 Postmenopausal 25.8 - 134.8 Performed By: #### L [facility] #### [facility] [address] [place] [address] Dr. Vish Brown LUTEINIZING HORMONE (LH)on 0 11-17-2022 LH 4.5 mIU/mL Normal [facility] Comment on above: Result Comment: Adul t Female: Follicular phase 2.4 - 12.6 Ovulation phase 14.0 - 95.6 Luteal phase 1.0 - 11.4 Postmenopausal 7.7 - 58.5 Performed By: #### L SUHAS #### [facility] [address] [place] [address] Dr. Vish Brown PROGESTERONEon 11-17-2022 Progesterone 0.8 ng/mL Normal [facility] Comment on above: Result Comment: Foll icular phase 0.1 - 0.9 Luteal phase 1.8 - 23.9 Ovulation phase 0.1 - 12.0 First trimester 11.0 - 44.3 Second trimester 25.4 - 83.3 Third trimester 58.7 - 214.0 Postmenopausal 0.0 - 0.1 Performed By: #### P TASNEEM #### [facility] [address] [place] [address] Dr. Vish Brown CBC AUTO DIFFon 11-16-2022 BASO # 0.0 103/ul Normal 0.0-0.1 [facility] Comment on above: Performed By: #### L SUHAS #### [facility] [address] [place] [address] Dr. Vish Brown Basophils/100 WBC (Bld) 0.5 % Normal 0.2-2.0 [facility] Comment on above: Performed By: #### L SUHAS #### [facility] [address] [place] [address] Dr. Vish Brown EO # 0.3 103/ul Normal 0.0-0.7 [facility] Comment on above: Performed By: #### L SUHAS #### [facility] [address] [place] [address] Dr. Vish Brown Eosinophils/100 WBC (Bld) 4.0 % Normal 0.9-7.0 [facility] Comment on above: Performed By: #### L BCL #### [facility] [address] [place] [address] Dr. Vish Brown Erythrocyte distribution width (RBC) [Ratio] 12.0 % Normal 11.0-15.0 [facility] Comment on above: Performed By: #### L BCL #### [facility] [address] [place] [address] Dr. Vish Brown Hematocrit (Bld) [Volume fraction] 39.1 % Normal 36.0-48.0 [facility] Comment on above: Performed By: #### L BCL #### [facility] [address] [place] [address] Dr. Vish Brown Hemoglobin (Bld) [Mass/Vol] 13.0 g/dL Normal 12.0-16.0 [facility] Comment on above: Performed By: #### L BCL #### [facility] [address] [place] [address] Dr. Vish Brown IG # 0.02 10e3/ul Normal 0.00-0.03 [facility] Comment on above: Performed By: #### L BCL #### [facility] [address] [place] [address] Dr. Vish Brown IG % 0.3 % Normal 0.0-0.5 [facility] Comment on above: Performed By: #### L BCL #### [facility] [address] [place] [address] Dr. Vish Brown LYMPH # 2.5 103/ul Normal 1.2-3.8 [facility] Comment on above: Performed By: #### L BCL #### [facility] [address] [place] [address] Dr. Vish Brown Lymphocytes/100 WBC (Bld) 32.4 % Normal 20.5-60.0 [facility] Comment on above: Performed By: #### L BCL #### [facility] [address] [place] [address] Dr. Vish Brown MANUAL DIFF REQ NO Normal [facility] Comment on above: Performed By: #### L BCL #### [facility] [address] [place] [address] Dr. Vish Brown MCH (RBC) [Entitic mass] 29.9 pg Normal 26.7-34.0 [facility] Comment on above: Performed By: #### L BCL #### [facility] [address] [place] [address] Dr. Vish Brown MCHC (RBC) [Mass/Vol] 33.2 g/dL Normal 29.9-35.2 [facility] Comment on above: Performed By: #### L BRUNA #### [facility] [address] [place] [address] Dr. Vish Brown MCV (RBC) [Entitic vol] 89.9 fL Normal 81.0-99.0 [facility] Comment on above: Performed By: #### L BCL #### [facility] [address] [place] [address] Dr. Vish Brown MONO # 0.6 103/ul Normal 0.3-0.8 [facility] Comment on above: Performed By: #### L BRUNA #### [facility] [address] [place] [address] Dr. Vish Brown Monocytes/100 WBC (Bld) 7.4 % Normal 1.7-12.0 [facility] Comment on above: Performed By: #### L BCL #### [facility] [address] [place] [address] Dr. Vish Brown NEUT # 4.3 103/ul Normal 1.4-6.5 [facility] Comment on above: Performed By: #### L BCL #### [facility] [address] [place] [address] Dr. Vish Brown Neutrophils/100 WBC (Bld) 55.4 % Normal 43.0-75.0 [facility] Comment on above: Performed By: #### L BCLH #### [facility] [address] [address] [address] Vish Brown Platelet mean volume (Bld) [Entitic vol] 9.0 fL Critically low 9.5-13.5 [facility] Comment on above: Performed By: #### L BCLH #### [facility] [address] [place] [address] Dr. Vish Brown PLT 277 103/ul Normal 150-450 [facility] Comment on above: Performed By: #### L BCLH #### [facility] [address] [place] [address] Dr. Vish Brown RBC 4.35 106/ul Normal 4.20-5.40 [facility] Comment on above: Performed By: #### L BCLH #### [facility] [address] [place] [address] Dr. Vish Brown WBC 7.7 103/ul Normal 4.0-11.0 [facility] Comment on above: Performed By: #### L BCLH #### [facility] [address] [place] [address] Dr. Vish Brown FREE T4on 11-16-2022 Free T4 [Mass/Vol] 1.08 ng/dL Normal 0.76-1.46 [facility] Comment on above: Performed By: #### F T4 #### [facility] [address] [place] [address] Dr. Vish Brown GLYCOHEMOGLOBIN A1Con 2022 ADA RECOMMENDATION SEE BELOW Normal [facility] Comment on above: Result Comment: ADA RECOMMENDED LIMIT 4.0 - 6.0 ADA THERAPEUTIC TARGET < 7.0 ACTION SUGGESTED > 7.0 Performed By: #### A 1C #### [facility] [address] [place] [address] Dr. Vish Brown Glucose [Mass/Vol] 94 mg/dL Normal [facility] Comment on above: Performed By: #### A 1C #### [facility] [address] [place] [address] Dr. Vish Brown HbA1c (Bld) [Mass fraction] 4.9 % Normal 4.5-6.2 [facility] Comment on above: Performed By: #### A 1C #### [facility] [address] [address] [address] Vish Brown PREG QUANT HCGon 11-16-2022 HCG QUANT <1 Normal [facility] Comment on above: Performed By: #### P REGQNT, TSH #### [facility] [address] [place] [address] Dr. Vish Brown HCG RANGE SEE BELOW Normal [facility] Comment on above: Result Comment: 5-50 0.2-1 WEEK 50-500 1-2 WEEKS 100-5,000 2-3 WEEKS 500-10,000 3-4 WEEKS 1,000-50,000 4-5 WEEKS 10,000-100,000 5-6 WEEKS 15,000-200,000 6-8 WEEKS 10,000-100,000 2-3 MONTHS Performed By: #### P REGQNT, TSH #### [facility] [address] [place] [address] Dr. Vish Brown TSHon 11-16-2022 TSH 2.030 uIU/mL Normal 0.358-3.740 [facility] Comment on above: Performed By: #### P REGQNT, TSH #### [facility] [address] [place] [address] Dr. iVsh Brown HM [age] Yearson 07[birth year]31-2024 [age] Years [...] Services - Lab To Draw (Blood Test); Due:[id number];Ordered; For:Benign essential hypertension; Ordered By:Koffi Uriarte; Provider [...] Occasional alcohol (more content not included)... Normal [employer] Tobacco Screening.on 023 Adult depression screening assessment No [facility] Phone: Fall risk assessment a) No falls within the last year [facility] Phone: Tobacco use status CPHS b) No [facility] Phone: B-HCG SerPl-aCncon HCG.beta subunit Qn m[IU]/mL Normal <5.0 [facility] Comment on above: Order Comment: Speci men Type: BLOOD SPECIMENOrdering Facility: [facility] Address: [address] [place] [address] Result Comment: Soledad kyle Performed By: #### G CCT #### [place] [address] BACTERIAL VAGINOSIS AMPLIFIC ATIONon 04-16-2022 Lactobacillus crispatus+gasseri+jense james + Gardnerella vaginalis + Atopobium vaginae rRNA HUMERA+probe Ql (Vag fld) Negative Normal Negative for bacterial vaginosis [facility] Comment on above: Order Comment: Speci men Type: SWAB Ordering Facility[facility] Address: [address] [place] [address] Performed By: #### C VTV, BVAMP #### [facility] CLIA [id number] [address] [place] [address] OF [facility] C. trachomatis+N. gonorrhoea e DNA HUMERA+probe Ql (Unsp spec)on 04-16-2022 C. trachomatis DNA HUMERA+probe Ql (Unsp spec) Negative Normal Negative for Chlamydia trachomatis by amplificaton [facility] Comment on above: Order Comment: Speci men Type: SWAB [facility]ing [facility] Address: [address] [place] [address] Performed By: #### C VTV, BVAMP #### [facility] CLIA [id number] OF [place] N. gonorrhoeae DNA HUMERA+probe Ql (Unsp spec) Negative Normal Negative for Neisseria gonorrhoeae by amplification [facility] Comment on above: Order Comment: Speci men Type: SWAB Ordering Facility: [facility] Address: [address] [place] [address] Performed By: #### C VTV, BVAMP #### [facility] CLIA [id number] [address] [place] [address] OF [place] MITCH / TRICHOMONAS AMPLIF ICATIONon 04-16-2022 MITCH / TRICHOMONAS AMPLIFICATION MITCH SPECIES GROUP RNA: Negative for Mitch species MITCH GLABRATA RNA: Negative for Mitch glabrata TRICH VAG AMPLIFICATION RNA: Negative for Trichomonas vaginalis by amplification Normal [facility] Comment on above: Performed By: #### C VTV, BVAMP #### [facility] CLIA [id number] [address] [place] [address] OF [facility]I CNCOon 04-16-2022 CNCO Letter Text Letter Text Normal [facility] CNOVon 04-16-2022 CNOV Office Visit (OBGA ) PRINCESS CANTU ([id number]) 1995 F Date Time Provider Department 04/16/22 8:00 AM BRENDAN BLANKENSHIP [facility] During your visit today, we recorded the following information about you: Pulse Blood pressure Weight Height 77/minute 134/84 91.9 kg 1.727 m Last Period 03/19/22 Brendan Blankenship PA-C 04/16/2022 8:18 AM Signed Princess Rosas Alodnra is a 26 year old year old [...] History Social History Narrative Single No 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 I, Brendan Blankenship, have reviewed this information as documented for accuracy and performed all elements of history taking, and edited the record as necessary. 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 #:[id number] BACTERIAL VAGINOSIS AMPLIFICATION [SQBVAMP] Order #: [id number]. #:[id number] GC/CHLAMYDIA DNA DET [SQGCCAMP] Order #: [id number]. #:[id number] SYPHILIS TOTAL W/REFLEX [SQSYPHTX] Order #: [id number] FUTURE HIV 1 2 COMBO(AG/AB),WITH REFLEX TO DIFFERENTIATION [SQHIV12] Order #: [id number] FUTURE HEP C AB IA W/CONF SCRN [BULYZD6M] Order #: [id number] FUTURE HEP B SURF AG SCRN [SQHBSAG] Order #: [id number] FUTURE Prescriptions as of 04/16/2022 - lamoTRIgine [...] Encounter Status:Closed by BRENDAN BLANKENSHIP on 04/16/22 [facility] HBV surface Ab IA Ql (S)on 0 04-16-2022 HBV surface Ag Ql (S) Negative Normal Negative [facility] Comment on above: Order Comment: Speci men Type: BLOOD SPECIMENOrdering Facility: [facility] Address: [address] [place] [address] Performed By: #### G CCT #### [place] [phone] HCV Ab Ser Qlon 04-16-2022 HCV Ab Ql (S) Negative Normal Negative [facility] Comment on above: Order Comment: Speci men Type: BLOOD SPECIMEN [facility] Address: [address] [place] [address] Result Comment: The result suggests no evidence of active infection with Hepatitis C virus. Should recent infection be suspected, repeat testing may be considered 4-6 weeks after this draw. Performed By: #### 1 [id number] #### [facility] CLIA [id number] [address] [place] [address] OF [facility] HIV 1+2 Ab IA Qlon 2 HIV 1 and 2 Ab IA.rapid Nom Normal [facility] Comment on above: Order Comment: Speci men Type: BLOOD SPECIMENOrdering Facility: [facility] Address: [address] [place] [address] Result Comment: Test not indicated. Performed By: #### G CCT #### [place] [phone] HIV 1+2 Ab+HIV1 p24 Ag IA Ql Non-Reactive Normal Nonreactive [facility] Comment on above: Order Comment: Speci men Type: BLOOD SPECIMENOrdering Facility: [facility] Address: [address] [place], [place] [address] Performed By: #### G CCT #### [place] [phone] HIVINT Normal [facility] Comment on above: Order Comment: Speci men Type: BLOOD SPECIMENOrdering Facility: [facility] Address: [address] [place] [address] Result Comment: No e vidence of HIV-1 or HIV-2 infection. Should recent infection be suspected, repeat testing may be considered 2-3 weeks after this draw. [place] Rev. Code 3701.243(E): This information has been [...] diagnoses. Performed By: #### G CCT #### [place] [phone] Reagin and Treponema pallidu m IgG and IgM [Interp]on 04-16-2022 SYPHILIS INTERPRETATION Cannot exclude r ecent Treponemal infection if specimen collected within 7-10 days after appearance of suspect lesions or 2-3 weeks after an exposure. Clinical correlation is required. Normal [facility] Comment on above: Order Comment: Speci men Type: BLOOD SPECIMENOrdering Facility: [facility] Address: [address] [place] [address] Performed By: #### G CCT #### [place] [phone] T. pallidum IgG+IgM IA Ql (S) Non-Reactive Normal Nonreactive [facility] Comment on above: Order Comment: Speci men Type: BLOOD SPECIMENOrdering Facility: [facility] Address: [address] [place] [address] Performed By: #### G CCT #### [place] [phone] Coding Summary.on 03-27-2022 Coding Summary. CD:[id number] Gh 0bWw+PGhlYWQ+FU7QUQDdW 93rwJGhxV8RI7rDXO0VRHN WYTLPSP0TZL1muFO9UYxpG 2VybiAv UlhljOEtLV71BIi0SLJ9gT brSQtibM1mdUTiW1s2FbUg XM96dV38TTmeZSGwKqI8Ys ZpbjsgbWFy K6jfKkXniJEeDiu+PHRhYm xlIHdpZHRoPScxMDAlJyBz bWgzRK0eMo6qNSHmSRYflF xhcHNlOiBj i9qrIIVrUMfrNE1auLaaR7 PvtEP3AOMlx1p0Vh36iSM+ NZTeDBY3xTibJLrwu742Fo Mhj9soYAQ1 xTPtQNodPKJ0L83eh4S6JP OvVREvLTB0rKQ2aQ9pnIbk wsgdB7SriKKyFwX5NHJ8rC KxjM0hbKvm rvowaN7iZsw+E06TQM6OWS RWMC1EHbz2T3TvGdhhfSW+ JN32GMEgRC32gAOkpEPzz2 vesVx4EgJt OJNqPDS7iJtcFIwlw8YnEM ShP23uvRMbx9G8IZQjvVuw xNKhHxSvxEM9aF6qGOlcle nfn2nxjrho Yeipx3gipc72uY20I96sWA tcSMUmKLD2ROYbTJAieEqw da7fmD1tEh6+YWozp0txx1 pnzRb8HlQo FVPichMhoNjfFWF9p8NiMe 84S0HxmTvpy1FqTqc1zl09 aXEvk2E9jZA8GQibCSLfsJ 0sBWueNlE6 NDGyCoFrsW49cQCrQLhiGi 2pmOuxjRsyVC4iGYQpluwv HCOloU8oBDXycBHpcLxxVX 4wNTBpbjtm q887VwMhVDE0MAGiuSAyR4 CynO1yFqMqCAGdPIXrL9In rOXdKHxgY294MRuoFoT1OZ HdcqFjY7Bm EVFqpHmaOdV5n7F3Cp7Oc5 WjbrwyDQQ9HTprCXL6TzN3 YlXrVsR7I2YxZjl6UWQevP hyWG7aM3Gb DQCysvaiporjyDV2YNQaBM WujY15dVJmYNfnPd2bs4Q2 z705CMIjBMHkeB65Tn9qoS ogMTBwdCBU lV0ihnago2gsopsdQrOeRR XeBKo2DQk3CAFttAayByAu NFS8NaA0GGO9zFZfcQ7tnW sspczmdX3z Oyc+D34epF4fHND5ZKD3wr rnGPGhefItKX04TS40X8Mu PjwvdGFibGU+PGRpdiBzdH lfQW0kIfOj r1mys0DyHYtrH1YvNRDlEJ pjHvg2FLMlHLH6sZM3oK4m ZKFuZPmtk5X6aNY5D8Guux Uxqf5zs6nj JMOuQIfwI97awPYel9F4OK WvgKJ8DLOvlKfcZzEduD68 Oyc+QESbxAxhl7ReVmord7 pcb0fxhVy7 ZxJbTIHvfcAuyMtoTHX4u6 DkLj53M74cYSeaUANrIROn IWEhVSDgmIzisr9llS8mJc 8+PGNvbCB3 lLU7xV3eJGRyBhA3SIttK0 07ImBvsOZpOewvw1zwq6dq pEy6GtSaNDFpkaMecQmfBG K0o7CxOn00 T36zBUhjIVMhBHTnOHTjVW VojRziaw5tiT0mSr4+PC9j j2cguj48iV49cJG+PHRkIH U7zZyxTDbr DVYztL0cTQfbLyH7EZSuQr ZfdX13eFEdZBlcXh8zxJld mNhwMP2gABJimpwks329Ox Uqs7jrUDCt wHVsVXrxKMV9Z05lo9G1WA EeZSHtYLG2tPA0kE0enXqo bjogbGVmdDsgdmVydGljYW hdGKslF437 IHRvcDsnPlBhdGllbnQgTm AwOBj8B0JoLbf0FPXbjUdr WZ7ozCSjZFdsVc4ezXltaF jdHP0nJSNr vjskz525IbNgv1jjMNOwhK OoWWinGOR0Q43ta7V3DRAn KYRfIKO1eTK8sE1sgXxnrz ogbGVmdDsg ntXtnSgjBWnhLCdnC773KD RvcDsnPkJpcnRoIERhdGU6 QD88YT28kRUyl8K8vUY5R4 BhZGRpbmct xetiqHC6FVOuITSabL15Rx 8cdDvhCf6zEDTwDIN3BILz bWEfX2QexC2bHzBgHZBjBL AvY1AprOZt SLhyO673PZilPeJ1EFFvqe MnU1SqOFPegBmpUnU8p8K8 Ta9RB4V7GU25NQ12nRSkx7 Y1wFT7N0Jb DNFamppacmmrkTZ9IWYdXD JkdU58Ta1unThzAc4fHRCa ALC8BNMheNEqC6FisS2hLg AjMDAwMDAw H9WkaAGoJVngQ823WPdsJv A8WJJazgUmE9AsVQFqeIxv DvZ5e6Q0Jz7AJWf7YO10CY 96zCAhd4V2 mDN5R8DdLSJclsbbliifvE O0HQOjBEGeuG87Ux8qoVxt Nk5nUTMbFSW6MDWurCJeW1 DanU0xKvRi IBGvUVVeJ3AlaEBvURewS0 67BHlyXqS0RUZjxlYqJ1Lt WMXnvRkaNdQ0f0D0Bl6DZR EpGB32RAT4 tXJ4ML54LC40H7QkMorqkG FibGU+PHRhYmxlIHdpZHRo ZOoaDSUnQjDkxRnlTA3hCh 9yZGVyLWNv xHguoGHbIkKlp2rqNYKuSX ieBE6ioDrkF3WmaNO0HJOn b7y0Mt88Y95qG0TinEW+PG HxpSI7rIE2 nT4gBzArWfU0SBcpG636Hy KexSCtBoohv9ndy0zarYg9 PjH0ACTtruJjdPiaZZP0k5 RpTc21N92k IHdpZHRoPSIxNSUiIHZhbG jpeb0vdE5tGb2+PGNvbCB3 lLV6fS3lQkEaDtN7FGgzR6 49InRvcCIv Twjru7gow7yltIs2WmWzAZ WpusMyiDoaHTJ0t5AcBv69 S6QneVmud9CiYec5jp58rF Fes7U8tZJ5 K1IcTXDiyinryFAjjSfeGS 9cBEXwfvnuMZJkrV4tAOPz L3x3CxItInM3LXzwA3Ybek J6QBEbeORz KEycCBP5Z12yk8Q4LKFuUF EjZWE5rJX4oZ3nrJrgyhcs bGVmdDsgdmVydGljYWwtYW biD260XOBo dMxcJGJkwV6rYXIfxFGsvX qiAX1fBQPkhzepCiRCP2rf DR5BC4NHYQF4Z5MeQlq3OU OauIbaQO5k kVOoESexIg7iaRvjtLrkXG 9jJAQksqssDIOztP1cILVc mBMreFkpHB1bTYWypfxtr1 25YhCxMCR7 JDQveBBcT7LvsK9fTsRkZV UoGNTyN0MbrFUmZWnjN352 ENcnTsT0ELAnoyOeE7RxKR FsaWduOiB0 p8A0Wk2pMu1aOt7fHRl3TW 82OJ58aQWhv0T5zHP6J5Yh QIBhtgtxylwzoDO7RLIgFJ DxyX79mCTu HVksRx9fu6Q0m065APJqRL UkyZ32Gs4qrFywRATvgLBN vC1phpxan1nsgmsqEaCuRB TqXSl6HZr2 RQKwiKcfMqCeZQV3GkN3VX C9pWAasZ6cgLgypaawoX6a Oyc+MycaGCHadqS0Z2CwSw s8JTEapFmf PN2kcIVhABbcBm5rkZdwbT ntSF7tIFRvuivuDFBoeU1r BMVxlPWhpNzyBY6kDRVbsk srh440UdNe UMF7PHCjrZEmS2CbzO0dGh WuBRKxBQGwX4IryRIsNPsa B682FLchFdM1CFUlvuYhS4 FsLWFsaWdu OpN3f5G6Wv8NJD9evOH4Q1 OvJds9IJTkzVucAT1okWVd FAkiBd6dtYtkdJysJB7xKF BpbjtwYWRk bV9gPCAokNSghKwsZO9iYZ Rchyqon581JtIxOYN2XMPh mBFzT7NlpB5vHeXiNWTwMA VsM2LaaQKf LLqdG177BMstBfF0XMGjvt PkI0ApVSYwbUkaKiM2a8P7 Kg8BzXSgIFMeZV57CY26XA 44H2AdJmnx dGFibGU+PHRhYmxlIHdpZH UuDEmuDXTbLlWqbCmvEL5l Ou8hAPVrLLEgiNubjUPuXu Bfk6iyKHUp WAgfSD7btIzyQ1QvwDN4IQ Vtr4l0Zz90G90rW4XjnLD+ RLFfxXO9gWE5sP1wFhZwMl Q0EAyqP411 ZvUkjEJnBkdaw8amh0rauQ u0NkGiHKQcvmEonHqyCQC5 d3OmZb47U93kOJinPTBgQK IyMCUiIHZh jYyjlg2qtH4zJo7+PGNvbC C0bSL4uS7fFwKkGnI8OQvd W082UxKwgBNuKcqcN08hT0 JvdXA+PHRy Xir8CMOeyZntFT3ucBHuRX urZy5rAGL2YcMxQyUeLUtr S4PqTANsebxrzjqppFM4YW AyWBExwD42 Ai7ugZzrVh9yBZNqZRN4VN DaoOXiR6ZicN8sWeHaCDLz TWKsH3LtwVRoOYlvZ249EE tgUiB4KLDd vzDjI5MnXPTcsKzaJkQ7f2 O3Tr7SkMtogCPsWO2cTmTw GEc9R2GjLhq4VEKrkSrnEU 0ncGFkZGlu Yf8odYvyuXcaOK2gHZMuhc dae655NqNvu2ujCIWriHYn VWquGBU8P34ef3K6MISwZI JyQYB0vQH1 vS6bsSlthrxtuZRssIjlar NdiSfgEIdnNGosD867TOYc kGmfHjEYVpd6W1KvSuh3UZ LicXzdUL9y pGTzXRajLz4meHjjqOnhBG 4bOHHyhpeqi876NqWlt4rh GOYloMWzYRilCEZ4T87hj6 F1LOOeZYDe GHG4iSH8jC3pmYtybkxezM VmdDsgdmVydGljYWwtYWxp J433TEYjzHwlDr8ADum2O2 JdDaa8NWQa cQnzOO2ujXMiBHwzIm4nhR prvZjrAJ3cVYYkpecia369 TvRtq3dnUQDipCNlRDrnKJ N5J42ib6J4 LQXtBWSeZJP3qBA7oH4xxL lnbjogbGVmdDsgdmVydGlj EBugPQdkU574GWWgbClyYo BheWVyOjwv dGQ+VM67jp67V8CtFockCd z9UDEbCPJ6eNR1nA8iTRUl LVvqk8E1wEE1A7QoxiJoqq 0bu8kiYUSl ZTog (more content not included)... Normal [facility] BhCG Quanton 03-24-2022 HCG.beta subunit Qn 1 m[IU]/mL Normal 1-3 [facility] Comment on above: Result Comment: GEST ATIONAL AGE HCG RANGE (mIU/mL) NON- <1-3 0.2-1 WEEKS 5-50 1-2 WEEKS 50-500 2-3 WEEKS 100-5,000 3-4 WEEKS 500-10,000 4-5 WEEKS 1,000-50,000 5-6 WEEKS 10,000-100,000 6-8 WEEKS 15,000-200,000 8-12 WEEKS 10,000-100,000 Performed By: #### [id number] #### [facility] [address] [place] [address] CHEMISTRYOrdered By: SYSTEM SYSTEM on 03-24-2022 HCG.beta subunit Qn 1 m[IU]/mL Normal 1 - 3 mIU/mL FTM C Remisol CNPNon 03-24-2022 CNPN Telephone ([facility]) PRINCESS CANTU ([id number]) 1995 F Date Time Provider Department 03/24/22 KAVITA SWEET [facility] During your visit today, we recorded the [...] Fully Assessed Reason for Visit: Bleeding With [52395] Primary Visit Diagnosis:Bleeding in early [O20.9] Order(s):HCG QUANTITATIVE [SQHCGQT] Order #: [id number] FUTURE Prescriptions as of 03/24/2022 - metroNIDAZOLE [...] Encounter Status:Closed by BRENDAN SOUZA on 03/24/22 [facility] Consent for Treatmenton Consent for Treatment [id number] 0CD:[id number] [facility] Physician Orderon 03-24-2022 Physician Order [id number] 0CD:127 [facility] CNPNon 03-19-2022 CNPN Telephone ([facility]) PRINCESS CANTU ([id number]) 1995 F Date Time Provider Department 03/19/22 [place] DWYER [facility] During your visit today, we [...] by MARY ONOFRE on 03/19/22 Normal [facility] Office Visit (Neuro-General) on 12-24-2021 Follow-up [...] or bowel/bladder incontinence. She was taken to [facility] in [place]. She had lab work and a CT [...] DAILY. Vitals Vital Signs Recorded: 24Dec2021 11:32AM Esxgzrugnae89.1 F Heart Rate54 Bwzpkaer273 Mlegkhntb61 Height5 ft 9 in Ztiwnn735 lb 1.6 oz BMI Ayjwgucqry67.03 kg/m2 BSA Calculated2.11 Tobacco Useb) No Fall Screeninga) No falls within the last year O2 Getpyrngeh422, RA Physical Exam Constitutional: General appearance: no [...] Dec 24 2021 11:37AM EST (Author) Normal [facility] Tobacco Screening.on 022 Fall risk assessment a) [...] Known Drug Allergies Vitals Vital Signs Recorded: [id number] 01:08PM Temperature: 97 F Heart Rate: 70 [...] Nov 17 2021 1:34PM EST (Author) Normal [facility] Tobacco Screening.on 022 Adult depression screening assessment No [facility] Phone: Fall risk assessment a) No falls within the last year [facility] Phone: Tobacco use status CPHS b) No M [facility] Phone: Bact Vag Amplificationon Bact Vag Amplification Positive Criticall y abnormal Negative for bacterial vaginosis [facility] Comment on above: Performed By: #### G CCT #### [facility] [address] [id number] CNOVon 09-09-2021 CNOV Office Visit ([facility] ) ALONDRAPRINCESS Rosas ([id number]) 1995 F Date Time Provider Department 09/09/21 10:00 AM BRENDAN BLANKENSHIP [facility] During your visit today, we recorded the [...] History Social History Narrative Single No 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 Portions of this record were documented by the Napper Fixer. I, Brendan Blankenship, have reviewed this information as documented for accuracy and performed all elements of history taking, and edited the record as necessary. 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 NEURO: Awake, alert and oriented A/P: 25 year old y/o F here for vaginal discharge. 1. Vaginal discharge - Suspect BV - MITCH / TRICHOMONAS AMPLIFICATION - BACTERIAL VAGINOSIS AMPLIFICATION - GC/CHLAMYDIA DNA DET Rx Flagyl sent. Advised abstaining from intercourse, ETOH while on Flagyl. F/U PRN Berndan Blankenship PA-C Medical Decision Making: Problems: Low: [...] Order(s):MITCH / TRICHOMONAS AMPLIFICATION [SQCVTV] Order #: [id number] BACTERIAL VAGINOSIS AMPLIFICATION [SQBVAMP] Order #: [id number] GC/CHLAMYDIA DNA DET [SQGCCAMP] Order #: [id number] metroNIDAZOLE (FLAGYL) 500 mg tabletTake 1 tablet [...] Status:Closed (more content not included)... Normal [facility] Mitch Trich Amplon 022 Mitch glabrata RNA Negative Normal Negative [facility] Comment on above: Performed By: #### G CCT #### [facility] [address] [phone] Mitch sp group RNA Negative Normal Negative [facility] Comment on above: Performed By: #### G CCT #### [address] [phone] Trichomonas RNA Negative Normal [facility] Comment on above: Performed By: #### G CCT #### [address] [phone] GC/Chlamydia Amplifon 2021 Chlamydia Amplif Negative Normal [facility] Comment on above: Performed By: #### G CCT #### [address] [phone] GC Amplification Negative Normal [facility] Comment on above: Performed By: #### G CCT #### [address] [phone] GC/Chlam Amp Source Cervix Normal [facility] Comment on above: Performed By: #### G CCT #### [address] [phone] Bact Vag Amplificationon Bact Vag Amplification Negative Normal Negat ko for bacterial vaginosis [facility] Comment on above: Performed By: #### C VTV, BVAMP #### [facility] CLIA [id number] [address] [place] [address] [place] CNOVon 07-04-2021 CNOV Office Visit (OBGYCC ) PRINCESS CANTU ([id number]) 1995 F [facility] Date Time Provider Department 07/04/21 4:00 PM [facility] your visit today, we recorded the following information about you: Pulse Blood pressure Weight Height 74/minute 131/86 95.7 kg 1.727 m Last Period 06/07/21 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 APRN.CLAMSHELL OPERATOR 07/04/2021 4:39 PM Signed Princess is [...] Ectopic0 Multiple0 Live Births0 Comment: Menarche 10 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 Some of these tests may be ordered or performed by your primary care doctor. Pap test screening The pap test loo (more content not included)... Normal [facility] Mitch Trich Amplon 021 Mitch glabrata RNA Negative Normal Negative [facility] Comment on above: Performed By: #### C VTV, BVAMP #### [facility] CLIA [id number] [address] [place] [address] [place] Mitch sp group RNA Negative Normal Negative [facility] Comment on above: Performed By: #### C VTV, BVAMP #### [facility] CLIA [id number] [address] [place] [address] [place] Trichomonas RNA Negative Normal [facility] Comment on above: Performed By: #### C VTV, BVAMP #### [facility] CLIA [id number] [address] [place] [address] [place] GC/Chlamydia Amplifon 2020 Chlamydia Amplif Negative Normal [facility] Comment on above: Performed By: #### G CCT #### [facility] [address] [address] GC Amplification Negative Normal [facility] Comment on above: Performed By: #### G CCT #### [address] [place] [address] GC/Chlam Amp Source Cervix Normal [facility] Comment on above: Performed By: #### G CCT #### [address] [place], [place] [address] Tobacco Screening.on 021 Fall risk assessment a) [...] trachomatis and Neisseria gonorrhoeae testing on specific uka-FNW-bkuxcvov sample types (female urine samples) have been validated by [facility]. This laboratory is certified by CLIA to [...] trachomatis and Neisseria gonorrhoeae testing on specific nny-MYH-pjbbsszj sample types (female urine samples) have been validated by [facility]. This laboratory is certified by CLIA to perform high complexity testing. Samples from all other sites are not validated for this method. TSHon 12-24-2020 TSH Qn 2.30 m[IU]/L Normal 0.44 - 3.98 [facility] Comment on above: Result Comment: TSH testing is performed using different testing methodology at [facility] than at other legacy [facility]. Direct result comparisons should only be made within the same method. Performed By: #### T SH2 #### [address] [address] TSH - Thyroid Stimulating Ho ti, Serumon 12-24-2020 TSH Qn 2.30 m[IU]/L See Below [employer] Phone: Comment on above: Reference Range: 0.4 4 - 3.98 TSH testing is performed using different testing methodology at [facility] than at other legacy [facility]. Direct result comparisons should only be made within the same method. Tobacco Screening.on 021 Fall risk assessment a) No falls within the last year [employer] Phone: Tobacco use status CPHS b) No M [employer] Phone: CBCon 08-14-2020 Erythrocyte distribution width (RBC) [Ratio] 13.2 % Normal 11.5 - 14.5 [facility] Comment on above: Performed By: #### C BC #### [address] [address] Hematocrit (Bld) [Volume fraction] 39.5 % Normal 36.0 - 46.0 [facility] Comment on above: Performed By: #### C BC #### [address] [address] Hemoglobin (Bld) [Mass/Vol] 13.0 g/dL Normal 12.0 - 16.0 [facility] Comment on above: Performed By: #### C BC #### [address] [address] MCHC (RBC) [Mass/Vol] 32.9 g/dL Normal 32.0 - 36.0 [facility] Comment on above: Performed By: #### C BC #### [address] [address] MCV (RBC) [Entitic vol] 91 fL Normal 80 - [address] [facility] Comment on above: Performed By: #### C BC #### [address] [address] NUCLEATED RBC 0.0 /100 WBC Normal 0.0 - 0.0 [facility] Comment on above: Performed By: #### C BC #### [address] [address] Platelets (Bld) [#/Vol] 235 10*3/uL Normal 150 - 450 [facility] Comment on above: Performed By: #### C BC #### [address] [address] RBC 4.33 x10E12/L Normal 4.00 - 5.20 [facility] Comment on above: Performed By: #### C BC #### [address] [address] WBC (Bld) [#/Vol] 5.8 10*3/uL Normal 4.4 - 11.3 [facility] Comment on above: Performed By: #### C BC #### [address] [address] COMPREHENSIVE PANELon 2020 Albumin [Mass/Vol] 4.7 g/dL Normal 3.4 - 5.0 [facility] Comment on above: Performed By: #### C MP #### [address] [address] ALP [Catalytic activity/Vol] 53 U/L Normal 33 - 110 [facility] Comment on above: Performed By: #### C MP #### [address] [address] ALT [Catalytic activity/Vol] 41 U/L Normal 7 - 45 [facility] Comment on above: Result Comment: Desiree ents treated with Sulfasalazine may generate falsely decreased results for ALT. Performed By: #### C MP #### [address] [address] Anion gap [Moles/Vol] 10 mmol/L Normal 10 - 20 [facility] Comment on above: Performed By: #### C MP #### [address] [address] AST [Catalytic activity/Vol] 27 U/L Normal 9 - 39 [facility] Comment on above: Performed By: #### C MP #### [address] [address] Bilirubin [Mass/Vol] 0.6 mg/dL Normal 0.0 - 1.2 [facility] Comment on above: Performed By: #### C MP #### [address] [address] Calcium [Mass/Vol] 9.5 mg/dL Normal 8.6 - 10.3 [facility] Comment on above: Performed By: #### C MP #### [address] [address] Chloride [Moles/Vol] 105 mmol/L Normal 98 - 107 [facility] Comment on above: Performed By: #### C MP #### [address] [address] Creatinine [Mass/Vol] 0.93 mg/dL Normal 0.50 - 1.05 [facility] Comment on above: Performed By: #### C MP #### [address] [address] GFR- AM. >60 Normal >60 [facility] Comment on above: Result Comment: CALC ULATIONS OF ESTIMATED GFR ARE PERFORMED USING THE MDRD STUDY EQUATION FOR THE IDMS-TRACEABLE CREATININE METHODS. CLIN CHEM 2007;53:766-72 Performed By: #### C MP #### [address] [address] GFR-NON AM. >60 Normal >60 [facility] Comment on above: Performed By: #### C MP #### [address] [address] Glucose [Mass/Vol] 94 mg/dL Normal 74 - 99 [facility] Comment on above: Performed By: #### C MP #### [address] [address] HCO3 (Bld) [Moles/Vol] 28 mmol/L Normal 21 - 32 [facility] Comment on above: Performed By: #### C MP #### [address] [place] [address] Potassium [Moles/Vol] 4.4 mmol/L Normal 3.5 - 5.3 [facility] Comment on above: Performed By: #### C MP #### [address] [place] [address] Protein [Mass/Vol] 7.3 g/dL Normal 6.4 - 8.2 [facility] Comment on above: Performed By: #### C MP #### [address] [place] [address] Sodium [Moles/Vol] 139 mmol/L Normal 136 - 145 [facility] Comment on above: Performed By: #### C MP #### [address] [place] [address] Urea nitrogen [Mass/Vol] 13 mg/dL Normal 6 - 23 [facility] Comment on above: Performed By: #### C MP #### [address] [place] [address] Hematologyon 08-14-2020 Hematocrit (Bld) [Volume fraction] 39.5 % See Below [facility] DO Work Phone: Comment on above: Reference Range: 36. 0 - 46.0 Hemoglobin (Bld) [Mass/Vol] 13.0 g/dL See Below [facility] DO Work Phone: Comment on above: Reference Range: 12. 0 - 16.0 MCV (RBC) [Entitic vol] 91 fL 80 - 100 M P-Neurolog -[facility] DO Work Phone: Platelets (Bld) [#/Vol] 235 {x10E9/L} 150 - 450 -[facility] Work Phone: RBC (Bld) [#/Vol] 4.33 {x10E12/L} See Below [facility] DO Work Phone: Comment on above: Reference Range: 4.0 0 - 5.20 WBC (Bld) [#/Vol] 5.8 {x10E9/L} 4.4 - 11.3 MP-N eurolog y-[place] [facility] DO Work Phone: WBC (Bld) [#/Vol] 0.0 {/100_WBC} 0.0 - 0.0 MP- Neurolog y-[facility] DO Work Phone: LAMOTRIGINE- LAMICTALon - LAMOTRIGINE- LAMICTAL 6.4 ug/mL Normal 2.5 - 15.0 [facility] Comment on above: Performed By: #### L AMOT #### [facility] [address] [place] [address] Lamotrigine Level, Serumon 0 08-14-2020 Lamotrigine [Mass/Vol] 6.4 ug/mL 2.5 - 15.0 MP -Neurolog y-[place] [facility] DO Work Phone: Metabolic Panelon 08-14-2020 ALP [Catalytic activity/Vol] 53 U/L 33 - 110 MP-Neurolog y[facility] [facility] DO Work Phone: Anion gap [Moles/Vol] 10 mmol/L 10 - 20 MP- Neurolog y-[facility] DO Work Phone: Bilirubin [Mass/Vol] 0.6 mg/dL 0.0 - 1.2 MP-N eurolog y-[place] [facility] DO Work Phone: Calcium [Mass/Vol] 9.5 mg/dL 8.6 - 10.3 MP-Jozef rolog y-[facility] DO Work Phone: Chloride [Moles/Vol] 105 mmol/L 98 - 107 MP-N eurolog y-[place] [facility] DO Work Phone: CO2 [Moles/Vol] 28 mmol/L 21 - 32 MP-Neurol og y-[place] [facility] DO Work Phone: Creatinine [Mass/Vol] 0.93 mg/dL See Below - [facility] christina-[place] [facility] DO Work Phone: Comment on above: Reference Range: 0.5 0 - 1.05 Glucose [Mass/Vol] 94 mg/dL 74 - 99 -[facility] y-[facility] DO Work Phone: Potassium [Moles/Vol] 4.4 mmol/L 3.5 - 5.3 - [facility] DO Work Phone: Protein [Mass/Vol] 7.3 g/dL 6.4 - 8.2 -[facility] christinaEugene [facility] DO Work Phone: Sodium [Moles/Vol] 139 mmol/L 136 - 145 [facility] Work Phone: Urea nitrogen [Mass/Vol] 13 mg/dL 6 - 23 -[facility] christinaEugene [facility] DO Work Phone: Otheron 08-14-2020 Albumin BCP dye [Mass/Vol] 4.7 g/dL 3.4 - 5.0 -[facility] christinaEugene [facility] DO Work Phone: ALT With P-5'-P [Catalytic activity/Vol] 41 U/L 7 - 45 [facility] Work Phone: Comment on above: Patients treated wit h Sulfasalazine may generate falsely decreased results for ALT. AST With P-5'-P [Catalytic activity/Vol] 27 U/L 9 - 39 [facility] Work Phone: Erythrocyte distribution width (RBC) [Ratio] 13.2 % See Below -[facility] DO Work Phone: Comment on above: [...] areas of abnormal enhancement after contrast administration. [email or web address] EXAMINATION: MRI BRA IN W WO CONTRAST [...] The calvarium and soft tissues are unremarkable. [employer] [place] [place], Chpo Incoming Radiant Results From [employer] - 05/09/2020 3:02 PM EDT EXAMINATION: MRI [...] areas of abnormal enhancement after contrast administration. [place], [place] MRI BRAIN W WO CONTRAST EXAMINATION: [...] David Winter MD 05/09/20 Final result Normal [facility] CBC With Platelet and Differ entialon 04-19-2020 Basophils (Bld) [#/Vol] 0.1 10*3/uL Normal 0.0-0.2 [facility] Comment on above: Performed By: #### C BCWD #### [facility] [address] [place] [address] Basophils/100 WBC (Bld) 0.4 % Normal [facility] Comment on above: Performed By: #### C BCWD #### [facility] [address] [place] [address] Eosinophils (Bld) [#/Vol] 0.5 10*3/uL Normal 0.0-0.7 [facility] Comment on above: Performed By: #### C BCWD #### [facility] [address] [place] [address] Eosinophils/100 WBC (Bld) 4.2 % Normal [facility] Comment on above: Performed By: #### C BCWD #### [facility] [address] [place] [address] Erythrocyte distribution width (RBC) [Ratio] 12.5 % Normal 11.5-14.5 [facility] Comment on above: Performed By: #### C BCWD #### [facility] [address] [place] [address] Hematocrit (Bld) [Volume fraction] 39.4 % Normal 37.0-47.0 [facility] Comment on above: Performed By: #### C BCWD #### [facility] [address] [place] [address] Hemoglobin (Bld) [Mass/Vol] 13.3 g/dL Normal 12.0-16.0 [facility] Comment on above: Performed By: #### C BCWD #### [facility] [address] [place] [address] Lymphocytes (Bld) [#/Vol] 3.2 10*3/uL Normal 1.0-4.8 [facility] Comment on above: Performed By: #### C BCWD #### [facility] [address] [place] [address] Lymphocytes/100 WBC (Bld) 26.9 % Normal [facility] Comment on above: Performed By: #### C BCWD #### [facility] [address] [place] [address] MCH (RBC) [Entitic mass] 29.8 pg Normal 27.0-31.3 [facility] Comment on above: Performed By: #### C BCWD #### [facility] [address] [place] [address] MCHC (RBC) [Mass/Vol] 33.8 % Normal 33.0-37.0 [facility] Comment on above: Performed By: #### C BCWD #### [facility] [address] [place] [address] MCV (RBC) [Entitic vol] 88.4 fL Normal 82.0-100.0 [facility] Comment on above: Performed By: #### C BCWD #### [facility] [address] [place] [address] Monocytes (Bld) [#/Vol] 0.8 10*3/uL Normal 0.2-0.8 [facility] Comment on above: Performed By: #### C BCWD #### [facility] [address] [place] [address] Monocytes/100 WBC (Bld) 6.8 % Normal [facility] Comment on above: Performed By: #### C BCWD #### [facility] [address] [place] [address] Neutrophils (Bld) [#/Vol] 7.3 10*3/uL Critically high 1.4-6.5 [facility] Comment on above: Performed By: #### C BCWD #### [facility] [address] [place] [address] Neutrophils/100 WBC (Bld) 61.7 % Normal [facility] Comment on above: Performed By: #### C BCWD #### [facility] [address] [place] [address] Platelets (Bld) [#/Vol] 314 10*3/uL Normal 130-400 [facility] Comment on above: Performed By: #### C BCWD #### [facility] [address] [place] [address] RBC (Bld) [#/Vol] 4.45 10*6/uL Normal 4.20-5.40 [facility] Comment on above: Performed By: #### C BCWD #### [facility] [address] [place] [address] WBC (Bld) [#/Vol] 11.9 10*3/uL Critically high 4.8-10.8 [facility] Comment on above: Performed By: #### C BCWD #### [facility] [address] [place] [address] CT HEAD WO CONTRASTon 2019 CT HEAD [...] De Jesus DO 04/19/20 Final result Normal [facility] Comprehensive Metabolic Pane crescencio 04-19-2020 Albumin [Mass/Vol] 4.9 g/dL Critically high 3.5-4.6 [facility] Comment on above: Performed By: #### C MP #### [facility] [address] [place] [address] ALP [Catalytic activity/Vol] 40 U/L Normal 40-130 [facility] Comment on above: Performed By: #### C MP #### [facility] [address] [place] [address] ALT [Catalytic activity/Vol] 17 U/L Normal 0-33 [facility] Comment on above: Performed By: #### C MP #### [facility] [address] [place] [address] Anion gap [Moles/Vol] 14 mmol/L Normal 9-15 [facility] Comment on above: Performed By: #### C MP #### [facility] [address] [place] [address] AST [Catalytic activity/Vol] 17 U/L Normal 0-35 [facility] Comment on above: Performed By: #### C MP #### [facility] [address] [place] [address] Bilirubin [Mass/Vol] mg/dL Normal 0.2-0.7 [facility] Comment on above: Performed By: #### C MP #### [facility] [address] [place] [address] Calcium [Mass/Vol] 10.0 mg/dL Critically high 8.5-9.9 [facility] Comment on above: Performed By: #### C MP #### [facility] [address] [place] [address] Chloride [Moles/Vol] 101 mmol/L Normal 95-107 [facility] Comment on above: Performed By: #### C MP #### [facility] [address] [place] [address] CO2 [Moles/Vol] 24 mmol/L Normal 20-31 [facility] Comment on above: Performed By: #### C MP #### [facility] [address] [place] [address] Creatinine [Mass/Vol] 0.87 mg/dL Normal 0.50-0.90 [facility] Comment on above: Performed By: #### C MP #### [facility] [address] [place] [address] GFR/1.73 sq M predicted among blacks MDRD (S/P/Bld) [Vol rate/Area] mL/min/{1.73_m2} Normal >60 [facility] Comment on above: Result Comment: >60 mL/min/1.73m2 EGFR, calc. for ages 18 and older using the MDRD formula (not corrected for weight), is valid for stable renal function. Performed By: #### C MP #### [facility] [address] [place] [address] GFR/1.73 sq M.predicted MDRD (S/P/Bld) [Vol rate/Area] mL/min/{1.73_m2} Normal >60 [facility] Comment on above: Result Comment: >60 mL/min/1.73m2 EGFR, calc. for ages 18 and older using the MDRD formula (not corrected for weight), is valid for stable renal function. Performed By: #### C MP #### [facility] [address] [place] [address] Globulin (S) [Mass/Vol] 3.1 g/dL Normal 2.3-3.5 M [facility] Comment on above: Performed By: #### C MP #### [facility] [address] [place] [address] Glucose [Mass/Vol] 94 mg/dL Normal 70-99 [facility] Comment on above: Performed By: #### C MP #### [facility] [address] [place] [address] Potassium [Moles/Vol] 3.9 mmol/L Normal 3.4-4.9 [facility] Comment on above: Performed By: #### C MP #### [facility] [address] [place] [address] Protein [Mass/Vol] 8.0 g/dL Normal 6.3-8.0 [facility] Comment on above: Performed By: #### C MP #### [facility] [address] [place] [address] Sodium [Moles/Vol] 139 mmol/L Normal 135-144 [facility] Comment on above: Performed By: #### C MP #### [facility] [address] [place] [address] Urea nitrogen [Mass/Vol] 12 mg/dL Normal 6-20 [facility] Comment on above: Performed By: #### C MP #### [facility] [address] [place] [address] Lactic Acidon 04-19-2020 Lactate [Moles/Vol] 1.8 mmol/L Normal 0.5-2.2 [facility] Comment on above: Performed By: #### L ACID #### [facility] [address] [place] [address] Prolactinon 04-19-2020 Prolactin 160.8 ng/mL Normal [facility] Comment on above: Result Comment: Defa ult Normal Ranges Female Male Non: 4.8-23.3 4.0-15.2 Performed By: #### P JAISON #### [facility] [address] [place] [address] Serum HCG Qualitativeon HCG.beta subunit Qn Negative Normal [facility] Comment on above: Performed By: #### S HCG #### [facility] [address] [place] [address] Urinalysis, reflex to cultur emiyl 04-19-2020 Urine Reflexed to Culture Not Indicated Normal [facility] Comment on above: Performed By: #### U AR #### [facility] [address] [place] [address] Bilirubin Ql (U) Negative Normal Negative [facility] Comment on above: Performed By: #### U AR #### [facility] [address] [place] [address] Clarity (U) Clear Normal Clear [facility] Comment on above: Performed By: #### U AR #### [facility] [address] [place] [address] Color (U) Yellow Normal Straw/Seward [facility] Comment on above: Performed By: #### U AR #### [facility] [address] [place] [address] Glucose Ql (U) Negative Normal Negative [facility] Comment on above: Performed By: #### U AR #### [facility] [address] [place] [address] Hemoglobin Ql (U) Trace-intact Normal Negative [facility] Comment on above: Performed By: #### U AR #### [facility] [address] [place] [address] Ketones Ql (U) Negative Normal Negative [facility] Comment on above: Performed By: #### U AR #### [facility] [address] [place] [address] Leukocyte esterase Test strip Ql (U) Negative Normal Negative [facility] Comment on above: Performed By: #### U AR #### [facility] [address] [place] [address] Nitrite Ql (U) Negative Normal Negative [facility] Comment on above: Performed By: #### U AR #### [facility] [address] [place] [address] pH (U) 6.0 [pH] Normal 5.0-9.0 [facility] Comment on above: Performed By: #### U AR #### [facility] [address] [place] [address] Protein Ql (U) Negative Normal Negative [facility] Comment on above: Performed By: #### U AR #### [facility] [address] [facility] [place] [address] Specific gravity (U) [Rel density] 1.020 Normal 1.005-1.03 [facility] Comment on above: Performed By: #### U AR #### [facility] [address] [facility] [address] Urobilinogen Qn (U) 0.2 {Alan'U}/dL Normal < 2.0 [facility] Comment on above: Performed By: #### U AR #### [facility] [address] [facility] [address] Urine Microscopicon 04-19-20 20 Epithelial cells LM Ql (Urine sed) 0-2 Normal [facility] Comment on above: Performed By: #### U ARELY #### [facility] [address] [facility] [address] RBC (U) [#/Vol] 0-2 Normal 0-2 [facility] Comment on above: Performed By: #### U ARELY #### [facility] [address] [facility] [address] WBC (U) [#/Vol] 0-2 Normal 0-5 [facility] Comment on above: Performed By: #### U ARELY #### [facility] [address] [facility] [address] CBC Auto Differentialon 10-0 Basophils (Bld) [#/Vol] 0.1 10*3/uL 0 - 0.2 K/u L [facility] [place] Basophils/100 WBC (Bld) 0.4 % M [facility], [place] Eosinophils (Bld) [#/Vol] 0.5 10*3/uL 0 - 0.7 K/uL [place] Eosinophils/100 WBC (Bld) 4.2 % [place] Erythrocyte distribution width (RBC) [Ratio] 12.5 % 11.5 - 14.5 % [place] Hematocrit (Bld) [Volume fraction] 39.4 % 37 - 47 % [place] Hemoglobin (Bld) [Mass/Vol] 13.3 g/dL 12 - 16 g/dL [place] Interpretation and review of laboratory results Abnormal [place] Lymphocytes (Bld) [#/Vol] 3.2 10*3/uL 1 - 4.8 K/uL [place] Lymphocytes/100 WBC (Bld) 26.9 % [place] MCH (RBC) [Entitic mass] 29.8 pg 27 - 31.3 pg [place] MCHC (RBC) [Mass/Vol] 33.8 % 33 - 37 % [place] MCV (RBC) [Entitic vol] 88.4 fL 82 - 100 fL [place] Monocytes (Bld) [#/Vol] 0.8 10*3/uL 0.2 - 0.8 K /uL [place] Monocytes/100 WBC (Bld) 6.8 % M [place] Neutrophils Absolute 7.3 K/uL High 1.4 - 6.5 K/uL [place] Neutrophils/100 WBC (Bld) 61.7 % [place] Platelets (Bld) [#/Vol] 314 10*3/uL 130 - 400 K /uL [place] RBC (Bld) [#/Vol] 4.45 10*6/uL [place] WBC (Bld) [#/Vol] 11.9 10*3/uL High 4.8 - 10.8 K/uL [place] Comprehensive Metabolic Pane crescencio 04-18-2020 Albumin [Mass/Vol] 4.9 g/dL High 3.5 - 4.6 g/dL [place] ALP [Catalytic activity/Vol] 40 U/L 40 - 130 U/L [place] ALT [Catalytic activity/Vol] 17 U/L 0 - 33 U/L [place] Anion gap [Moles/Vol] 14 mmol/L [place] AST [Catalytic activity/Vol] 17 U/L 0 - 35 U/L [place] Bilirubin Ql (U) <0.2 0.2 - 0.7 mg/dL [place] Calcium [Mass/Vol] 10.0 mg/dL High 8.5 - 9.9 mg/dL [place] Chloride [Moles/Vol] 101 mmol/L [place] CO2 [Moles/Vol] 24 mmol/L [place] Creatinine [Mass/Vol] 0.87 mg/dL 0.5 - 0.9 mg/dL [place] GFR >60.0 >60 [place] Comment on above: >60 mL/min/1.73m2 EG FR, calc. for ages 18 and older using the MDRD formula (not corrected for weight), is valid for stable renal function. GFR Non- >60.0 >60 [place] Comment on above: >60 mL/min/1.73m2 EG FR, calc. for ages 18 and older using the MDRD formula (not corrected for weight), is valid for stable renal function. Globulin (S) [Mass/Vol] 3.1 g/dL 2.3 - 3.5 g/ dL [place] Glucose [Mass/Vol] 94 mg/dL 70 - 99 mg/dL [place] Interpretation and review of laboratory results Abnormal [place] Potassium [Moles/Vol] 3.9 mmol/L [place] Protein [Mass/Vol] 8.0 g/dL 6.3 - 8 g/dL [place] Sodium [Moles/Vol] 139 mmol/L [place] Urea nitrogen [Mass/Vol] 12 mg/dL 6 - 20 mg/dL [place] HCG Qualitative, Serumon hCG Qual Negative [place] Lactic Acid, Plasmaon 2019 Lactate [Moles/Vol] 1.8 mmol/L 0.5 - 2. 2 mmol/L [place] Microscopic Urinalysison Epithelial Cells, UA 0-2 /HPF [facility], [place] RBC (U) [#/Vol] 0-2 [facility] WBC, UA 0-2 [facility] Urine Reflex to Cultureon Bilirubin Urine Negative Negative [facility] Blood, Urine Trace-intact Negative [facility] Clarity, UA Clear Clear [facility] Color, UA Yellow Straw/Yellow [facility] Glucose, Ur Negative Negative mg/dL [place] Ketones Ql (U) Negative Negative mg/dL [place] Leukocyte esterase Test strip Ql (U) Negative Negative [place] Nitrite, Urine Negative Negative [place] pH, UA 6.0 [place] Protein (U) [Mass/Vol] Negative Negative mg/d L [place] Specific [place], UA 1.020 [facility], [place] Urine Reflex to Culture Not Indicated [place] Urobilinogen, Urine 0.2 <2.0 E.U./dL [place] ECHOCARDIOGRAPHY REPORT (HL) on 05-10-2017 ECHOCARDIOGRAPHY REPORT (HL) PRINCESS CANTU [id number] [id number] VASCULAR LABReferring: Koffi Uriarte A.Reading: CURTIS GARCIA [...] 4 CH 16.1 cm2LA Volume Indexed 21.05 ml/e8Jatamjqwu/Systoli c FunctionMV E-wave Vmax 0.884 m/secMV deceleration time 193 msecMV A-wave Vmax 0.494 m/secLV septal e' Vmax 0.115 m/secLV lateral e' Vmax 0.189 m/secLV E:e' septal ratio 7.7 ratio [facility] PRINCESS CANTU [id number] [place] [address] [id number] 93Jackie Uriarte MDECHOCARDIOGRAPHY REPORTLV E:e' lateral ratio [...] no evidence ofpulmonic regurgitation. [facility] [id number] [place] [address] [id number] 93Jackie Uriarte MDECHOCARDIOGRAPHY REPORTPericardium:Ther e is no [...] function.This is a normal echocardiogram.PARAS CHOW05/10/2017 10:26:53 [facility] PRINCESS CANTU [id number] [place] [address] [id number] 93Jackie roper MDECHOCARDIOGRAPHY REPORT Normal [facility] BASIC METABOLIC PANELon 04-18 Anion gap 10 mmol/L Normal 6-18 [facility] Comment on above: Order Comment: Is pa tient fasting? YES Performed By: #### L BMP, LGFRP ####[facility] [address]qubnqx[address] [place] [address] Calcium 9.6 mg/dL Normal 8.6-10.3 [facility] Comment on above: Order Comment: Is pa tient fasting? YES Performed By: #### L BMP, LGFRP ####[facility] Km[address]qem[address] [place] [address] Chloride 101 mmol/L Normal 98-107 [facility] Comment on above: Order Comment: Is pa tient fasting? YES Performed By: #### L BMP, LGFRP ####[facility] Pc[address]kkqmmm77846 [place] [address] CO2 27 mmol/L Normal 21-32 [facility] Comment on above: Order Comment: Is pa tient fasting? YES Performed By: #### L BMP, LGFRP ####[facility] Ijnnokaezc71349 [place] [address] Creatinine 0.74 mg/dL Normal 0.5-1.05 [facility] Comment on above: Order Comment: Is pa tient fasting? YES Performed By: #### L BMP, LGFRP ####[facility] Vtornysrml[address]21 [place] [address] Glucose mass conc 82 mg/dL Normal 74-99 [facility] Comment on above: Order Comment: Is pa tient fasting? YES Performed By: #### L BMP, LGFRP ####[facility] Pxejkwawpm43272 [place] [address] Potassium molar conc 4.1 mmol/L Normal 3.5-5.3 [facility] Comment on above: Order Comment: Is pa tient fasting? YES Performed By: #### L BMP, LGFRP ####[facility] Mev[address]eqtjf[address]22 [place] [address] Sodium 134 mmol/L Low 136-145 [facility] Comment on above: Order Comment: Is pa tient fasting? YES Performed By: #### L BMP, LGFRP ####[facility] Oilinymots02002 [place] [address] Urea nitrogen 14 mg/dL Normal 6-23 [facility] Comment on above: Order Comment: Is pa tient fasting? YES Performed By: #### L BMP, LGFRP ####[facility] [address] [place], [place] [id number] CBC AUTOon 05-04-2017 Erythrocyte distribution width Auto Ratio (RBC) 12.8 % Normal 11.5-14.5 [facility] Comment on above: Performed By: #### L CBC ####[facility] [address] [place] [address] Erythrocytes (RBC) 4.65 10*6/uL Normal 3.5-5.5 [facility] Comment on above: Performed By: #### L CBC ####[place] [address] Hematocrit (HCT) 41.1 % Normal 36.0-48.0 [facility] Comment on above: Performed By: #### L CBC ####[place] [address] Hemoglobin mass conc (Bld) 13.8 g/dL Normal 12.0-15.0 [facility] Comment on above: Performed By: #### L CBC ####[place] [address] MCH 29.7 pg Normal 25.4-34.6 [facility] Comment on above: Performed By: #### L CBC ####[facility] [address] [place], [place] [id number] MCHC mass conc (RBC) 33.6 g/dL Normal 30.0-36.0 [facility] Comment on above: Performed By: #### L CBC ####[facility] [address] [place], [place] [address] MCV 88.4 fL Normal 79.0-98.0 [facility] Comment on above: Performed By: #### L CBC ####[facility] [place], [place] [address] Platelet mean volume (PMV) 9.3 fL Normal 8.4-11.9 [facility] Comment on above: Performed By: #### L CBC ####[place] [address] Platelets 277 10*3/uL Normal 140-440 [facility] Comment on above: Performed By: #### L CBC ####[facility] Vhrjrniltc00724 [place] [address] WBC (Leukocytes) 6.1 10*3/uL Normal 3.9-11.0 [facility] Comment on above: Performed By: #### L CBC ####[facility] Bs[address]wdcuye56273 [place] [address] GLOMERULAR FILTRATION RATE E STon 05-04-2017 eGFR (non-black) mL/min/{1.73_m2} Normal > 60 [facility] Comment on above: Order Comment: Is pa tient fasting? YES Performed By: #### L BMP, LGFRP ####[facility] Zaafkrzdor51754 [place] [address] IF AMER > 90 Normal > 60 [facility] Comment on above: Order Comment: Is pa tient fasting? YES Result Comment: Effe ctive 12/12/14:CKD-EPI equation / based on IDMS traceable creatinine.Continue to use the CREAT CLR-DOSE ([place]gro[place]-Gault)value for determining medication dose. Performed By: #### L BMP, LGFRP ####[facility] Dcgfzubuge99171 [place] [address] Vital Signs Date Time Vital Sign Value Performing Clinician Yael murguia 07-31-2022 10:54-0500 Body height 175.26 cm Koffi Rosas MDSave Work Phone: [employer] Work Phone: 07-31-2022 10:54-0500 Body mass index (BMI) [Ratio] 31.01 kg/m2 Koffi Rosas MDSave Work Phone: [employer] Work Phone: 07-31-2022 10:54-0500 Body surface area Derived from formula 2.11 m2 Koffi Clementeson Work Phone: [employer] Work Phone: 01-13-2023 10:54-0500 Body temperature 97.6 [degF] Koffi Uriarte Work Phone: OK-SWNI-[place] Work Phone: 07-31-2022 10:54-0500 Body weight 95.26 kg Koffi Uriarte Work Phone: ZI-EMRT-[place]ne [place] Work Phone: 07-31-2022 10:54-0500 Diastolic blood pressure 87 mm[Hg] Koffi Uriarte Work Phone: BO-FJNM-Rfoi [place] Work Phone: 07-31-2022 10:54-0500 Heart rate 76 /min Koffi Uriarte Work Phone: YX-VOVN-Pivr [place] Work Phone: 07-31-2022 10:54-0500 Respiratory rate 18 /min Koffi Uriarte Work Phone: WZ-OIWN-[place]ild [place] Work Phone: 07-31-2022 10:54-0500 Systolic blood pressure 121 mm[Hg] Koffi Uriarte Work Phone: NJ-JJXU-Bvmv [place] Work Phone: 12-24-2021 11:32-0400 Body height 175.26 cm Koffi Uriarte Work Phone: IX-Kjmmsqmgv-Xvtb [place] SJW DO Work Phone: 12-24-2021 11:32-0400 Body mass index (BMI) [Ratio] 31.03 kg/m2 Koffi Uriarte Work Phone: QE-Xgdepbjfh-Hxbv [place] SJW DO Work Phone: 12-24-2021 11:32-0400 Body surface area Derived from formula 2.11 m2 Koffi Uriarte Work Phone: CE-Itpibuyqn-Jqdo [place] SJW DO Work Phone: 12-24-2021 11:32-0400 Body temperature 97.1 [degF] Koffi Uriarte Work Phone: [facility] DO Work Phone: 12-24-2021 11:32-0400 Body weight 95.3 kg Koffi Uriarte Work Phone: [facility] DO Work Phone: 12-24-2021 11:32-0400 Diastolic blood pressure 76 mm[Hg] Koffi Uriarte Work Phone: [facility] DO Work Phone: 12-24-2021 11:32-0400 Heart rate 54 /min Koffi Uriarte Work Phone: [facility] DO Work Phone: 12-24-2021 11:32-0400 SaO2% (BldA) [Mass fraction] 100 % Koffi Uriarte Work Phone: [facility] DO Work Phone: 12-24-2021 11:32-0400 Systolic blood pressure 114 mm[Hg] Koffi Uriarte Work Phone: [facility] DO Work Phone: 11-17-2021 13:08-0400 Body height 172.72 cm Koffi Uriarte Work Phone: [facility] Work Phone: 11-17-2021 13:08-0400 Body mass index (BMI) [Ratio] 32.39 kg/m2 Koffi Uriarte Work Phone: SL[facility] Work Phone: 11-17-2021 13:08-0400 Body surface area Derived from formula 2.1 m2 Koffi Uriarte Work Phone: MO-MONK-Btqa [place] Work Phone: 11-17-2021 13:08-0400 Body temperature 97 [degF] Koffi Uriarte Work Phone: DD-HHGG-Fyjg [place] Work Phone: 11-17-2021 13:08-0400 Body weight 96.62 kg Koffi Uriarte Work Phone: UG-KTJT-Xiwx [place] Work Phone: 11-17-2021 13:08-0400 Diastolic blood pressure 84 mm[Hg] Koffi Uriarte Work Phone: DW-YNZS-Vasv [place] Work Phone: 11-17-2021 13:08-0400 Heart rate 70 /min Koffi Uriarte Work Phone: XZ-VAXO-Rxsk [place] Work Phone: 11-17-2021 13:08-0400 Respiratory rate 18 /min Koffi Uriarte Work Phone: OG-LKCU-Nmpl [place] Work Phone: 11-17-2021 13:08-0400 SaO2% (BldA) [Mass fraction] 96 % Koffi Uriarte Work Phone: KD-LZDN-Ppui [place] Work Phone: 11-17-2021 13:08-0400 Systolic blood pressure 126 mm[Hg] Koffi Uriarte Work Phone: TD-NACF-[place] Work Phone: 06-25-2021 10:54-0500 Body height 172.72 cm Koffi Uriarte Work Phone: [facility] SJ DO Work Phone: 06-25-2021 10:54-0500 Body mass index (BMI) [Ratio] 32.08 kg/m2 Koffi Uriarte Work Phone: [facility] DO Work Phone: 06-25-2021 10:54-0500 Body surface area Derived from formula 2.09 m2 Koffi Uriarte Work Phone: [facility] DO Work Phone: 06-25-2021 10:54-0500 Body temperature 97.1 [degF] Koffi Uriarte Work Phone: [facility] DO Work Phone: 06-25-2021 10:54-0500 Body weight 95.71 kg Koffi Uriarte Work Phone: [facility] DO Work Phone: 06-25-2021 10:54-0500 Diastolic blood pressure 62 mm[Hg] Koffi Uriarte Work Phone: [facility] DO Work Phone: 06-25-2021 10:54-0500 Heart rate 67 /min Koffi Uriarte Work Phone: [facility] DO Work Phone: 06-25-2021 10:54-0500 Respiratory rate 18 /min Koffi Uriarte Work Phone: [facility] DO Work Phone: 06-25-2021 10:54-0500 SaO2% (BldA) [Mass fraction] 99 % Koffi Uriarte Work Phone: [facility] DO Work Phone: 06-25-2021 10:54-0500 Systolic blood pressure 131 mm[Hg] Koffi Uriarte Work Phone: [facility] DO Work Phone: 05-20-2021 15:59-0400 Body height 172.72 cm Koffi Uriarte Work Phone: SK-KGTK-[place] Work Phone: 05-20-2021 15:59-0400 Body mass index (BMI) [Ratio] 31.93 kg/m2 Koffi Uriarte Work Phone: WD-SMIS-[place]aus [place] Work Phone: 05-20-2021 15:59-0400 Body surface area Derived from formula 2.09 m2 Koffi Uriarte Work Phone: JL-TXNU-Gpew [place] Work Phone: 05-20-2021 15:59-0400 Body temperature 98.1 [degF] Koffi Uriarte Work Phone: PC-NCEF-Nsqy [place] Work Phone: 05-20-2021 15:59-0400 Body weight 95.26 kg Koffi Uriarte Work Phone: SF-HEGI-Npjp [place] Work Phone: 05-20-2021 15:59-0400 Diastolic blood pressure 82 mm[Hg] Koffi Uriarte Work Phone: ZL-XTZH-[place] Work Phone: 05-20-2021 15:59-0400 Heart rate 72 /min Koffi Uriarte Work Phone: VT-NBEG-Cqwp [place] Work Phone: 05-20-2021 15:59-0400 Respiratory rate 16 /min Koffi Uriarte Work Phone: KK-RYGM-Kcqi [place] Work Phone: 05-20-2021 15:59-0400 Systolic blood pressure 122 mm[Hg] Koffi Uriarte Work Phone: EN-HOJS-Zuso [place] Work Phone: 12-24-2020 14:45-0400 Body height 172.72 cm Koffi Uriarte Work Phone: OG-WFST-Iqvp [place] Work Phone: 12-24-2020 14:45-0400 Body mass index (BMI) [Ratio] 30.71 kg/m2 Koffi Uriarte Work Phone: JU-XXHW-Pnob [place] Work Phone: 12-24-2020 14:45-0400 Body surface area Derived from formula 2.05 m2 Koffi Uriarte Work Phone: VI-BSGC-Vaaq [place] Work Phone: 12-24-2020 14:45-0400 Body temperature 97.8 [degF] Koffi Uriarte Work Phone: MW-NEBB-Xcvq [place] Work Phone: 12-24-2020 14:45-0400 Body weight 91.63 kg Koffi Uriarte Work Phone: TN-KGHK-Zpfv [place] Work Phone: 12-24-2020 12:59-0400 Body height 172.72 cm Koffi Uriarte Work Phone: IG-PSHY-Gzst [place] Work Phone: 12-24-2020 12:59-0400 Body mass index (BMI) [Ratio] 30.71 kg/m2 Koffi Uriarte Work Phone: KU-VNDU-Brcq [place] Work Phone: 12-24-2020 12:59-0400 Body surface area Derived from formula 2.05 m2 Koffi Uriarte Work Phone: MB-CSDC-Ynxw [place] Work Phone: 12-24-2020 12:59-0400 Body temperature 98.2 [degF] Koffi Uriarte Work Phone: KI-ITQO-Yjts [place] Work Phone: 12-24-2020 12:59-0400 Body weight 91.63 kg Koffi Uriarte Work Phone: LJ-BMVI-Ivmx [place] Work Phone: 12-24-2020 12:59-0400 Diastolic blood pressure 90 mm[Hg] Koffi Uriarte Work Phone: AI-SGEL-Ortx [place] Work Phone: 12-24-2020 12:59-0400 Heart rate 75 /min Koffi Uriarte Work Phone: IC-WXBQ-Jiie [place] Work Phone: 12-24-2020 12:59-0400 Respiratory rate 16 /min Koffi Uriarte Work Phone: GL-KFEX-[place]a [place] Work Phone: 12-24-2020 12:59-0400 Systolic blood pressure 147 mm[Hg] Koffi Uriarte Work Phone: GR-CPCM-Ldal [place] Work Phone: 08-14-2020 13:26-0500 BMI (Body Mass Index) 29.04 kg/m2 Koffi Uriarte PG-Rqifnelxe-Knkx [place] SJW DO Work Phone: 08-14-2020 13:26-0500 Body Temperature 97.5 [degF] Koffi Uriarte [facility] Work Phone: 08-14-2020 13:26-0500 Body weight 86.64 kg Koffi Uriarte [facility] Work Phone: 08-14-2020 13:26-0500 BP Diastolic 100 mm[Hg] Koffi Uriarte [facility] Work Phone: 08-14-2020 13:26-0500 BP Systolic 150 mm[Hg] Koffi Uriarte [facility]-Neurology- [facility] DO Work Phone: 08-14-2020 13:26-0500 BSA (Body Surface Area) 2 m2 Koffi Uriarte CX-Mtjistcca-Hwro [place] SJW DO Work Phone: 08-14-2020 13:26-0500 Height 172.72 cm Koffi Uriarte MP-Neurology- [facility] [place] Work Phone: 05-28-2020 15:24-0500 BMI (Body Mass Index) 28.59 kg/m2 Koffi Uriarte MP-WSPC -[place] Work Phone: 05-28-2020 15:24-0500 Body Temperature 97.6 [degF] Koffi Uriarte BG-FGVO-[place]je [place] Work Phone: 05-28-2020 15:24-0500 Body weight 85.28 kg Koffi Uriarte UZ-OWZE-Vswa [place] Work Phone: 05-28-2020 15:24-0500 BP Diastolic 82 mm[Hg] Koffi Uriarte XQ-LZGW-Ldgg [place] Work Phone: 05-28-2020 15:24-0500 BP Systolic 122 mm[Hg] Koffi Uriarte KM-XIYS-Qjzv [place] Work Phone: 05-28-2020 15:24-0500 BSA (Body Surface Area) 1.99 m2 Koffi Uriarte CK-AYKR-Lnbo [place] Work Phone: 05-28-2020 15:24-0500 Height 172.72 cm Koffi Uriarte LR-VDEV-Anld [place] Work Phone: 05-28-2020 15:24-0500 Pulse (Heart [...] 04-19-2020 00:00-0400 BP Diastolic 83 mm[Hg] [facility] 04-19-2020 00:00-0400 BP Systolic 144 mm[Hg] [facility] 04-18-2020 22:17-0400 BMI (Body Mass Index) 28.06 kg/m2 [facility], [place] 04-18-2020 22:17-0400 Body Temperature 98.91 [degF] Tu [place], [place] 04-18-2020 22:17-0400 Body weight 86.18 kg [facility] 04-18-2020 22:17-0400 Height 175.3 cm [facility] 04-18-2020 22:17-0400 Pulse (Heart Rate) 105 /min Tu Barker [facility], [place] 04-18-2020 22:17-0400 Pulse Oximetry 97 % [facility] 04-18-2020 22:17-0400 Respiratory Rate 16 /min Tu [place] [facility], [place] Encounters Encounter Date Encounter Type Care Provider Facility Start: 07-28-2023 End: 07-28-2023 ambulatory LISA ZIMMERMAN Not Available Start: 07-14-2023 End: 07-14-2023 ambulatory SHIMA RODAS Not Available Start: 06-30-2023 End: 07-01-2023 ambulatory SHIMA RODAS Not Available Start: 06-16-2023 End: 06-16-2023 ambulatory SHIMA RODAS Not Available Start: 06-01-2023 End: 06-01-2023 ambulatory SHIMA RODAS Not Available Start: 04-30-2023 End: 04-30-[address] [facility] Start: 04-30-2023 End: 04-30-2023 Office outpatient visit 15 minutes Nedra Calderon MD Work Phone: [facility] Comment on above: Seizure (CMS/HCC) (P rimary Dx) Start: 11-25-2022 End: 11-26-[address] LISA ZIMMERMAN . Facility:[facility]1 Start: 11-16-2022 End: 11-17-[address] LISA ZIMMERMAN . Facility:[facility]1 Start: 07-31-2022 Current tobacco non- user cad cap copd pv dm Koffi Uriarte Work Phone: GU-ZTUD-Mqtp [place] Work Phone: Start: 07-31-2022 Periodic preventive med est patient 18-39 yrs Koffi A Uriarte Work Phone: JI-RUBO-Uyxq [place] Work Phone: Start: 07-31-[address] 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 Work Phone: CB/Gynecology Comment on above: Appointment Start: 03-18-2022 AUDIT Koffi Carlson kellieon Work Phone: KA-Xdfqnogzj-Bcngltl e [employer] DO Work Phone: Start: 02-03-2022 ambulatory Brendan Blankenship PA-C Work Phone: OB/Gynecology Comment on above: Bacteria Vaginosis Start: 01-02-2022 AUDIT Koffi Carlson kellieon Work Phone: OU-NHGW-Ajxk [place] Work Phone: Start: 12-24-2021 Office outpatient vi sit 15 minutes Koffi A Uriarte Work Phone: LD-Sgqiprxze-Jxpltou e [employer] DO Work Phone: Start: 11-17-2021 Office outpatient vi sit 15 minutes Koffi Rosas Uriarte Work Phone: YQ-HMPQ-Awcd [place] Work Phone: Start: 09-29-2021 AUDIT Koffi Alison Carlson ardson Work Phone: MO-OTSS-Ghpp [place] Work Phone: Start: 09-09-2021 End: 09-09-2021 ambulatory BRENDAN BLANKENSHIP Facility:[facility] Start: 07-04-2021 End: 07-05-2021 ambulatory GEORGIA DWYER Facility:[facility] Start: 07-04-2021 Encounter for gynecological examination (general) (routine) without abnormal findings GEORGIA DWYER [facility] Start: 06-25-2021 Office outpatient vi sit 25 minutes Koffi Alison Uriarte Work Phone: CN-Emuwfwejz-Spvowgt e AMANDAW DO Work Phone: Start: 05-22-2021 Chart Update Koffi Alison Carlson ardson Work Phone: ET-UTIY-Ujdr [place] Work Phone: Start: 05-20-2021 Office outpatient vi sit 25 minutes Koffi A Uriarte Work Phone: ZH-ZBTK-Uvcp [place] Work Phone: Start: 05-20-2021 Patient encounter procedure Koffi Alison Uriarte Work Phone: SX-EQGM-Eftv [place] Work Phone: Start: 03-28-2021 AUDIT Koffi Alison Rich ardson Work Phone: QW-LXSS-Yuoz [place] Work Phone: Start: 12-24-2020 Chart Update Koffi A Rich ardson Work Phone: HO-ULXT-Ftin [place] Work Phone: Start: 12-24-2020 Office outpatient vi sit 25 minutes Koffi A Uriarte Work Phone: UE-RMXS-Shqu [place] Work Phone: Start: 08-14-2020 Patient encounter procedure Koffi Uriarte OP-Opnlhcefx-Iakveum e SJW DO Work Phone: Start: 06-11-2020 Patient encounter procedure Koffi Uriarte LA-Ugwgaswyu-Mjycklp e SJW DO Work Phone: Start: 05-28-2020 Patient encounter procedure Koffi Uriarte CG-KAUD-Luoe [place] Work Phone: Start: 05-09-2020 End: 05-12-2020 Patient encounter procedure SPIKE RADHA [facility] Start: 05-09-2020 End: 05-11-2020 Subsequent hospital visit by physician Madeline Frey 1 EEG Comment on above: 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 Patient encounter status Koffi Uriarte Work Phone: LD-UJLL-Zanw [place] Work Phone: Procedures Date Procedure Procedure [...] Start: 04-18-2020 Urinalysis microscopic only Tu Reece [facility] Work Phone: Start: 04-18-2020 Urnls dip stick/tablet rgnt auto w/o microscopy Tu Curran Work Phone: Start: 04-18-2020 Blood count complete auto&auto difrntl wbc Tu Curran Work Phone: Start: 04-18-2020 Comprehensive metabolic panel Tu Curran Work Phone: Start: 04-18-2020 Gonadotropin chorionic leonard Henley [place] Work Phone: History of No histor y of surgery Koffi Uriarte No history of surgery Shahnaz Uriarte Work Phone: Plan of Treatment Date Care Activity Detail Author Start: 10-02-2043 Zoster Vaccines (1 o f 2) Zoster Vaccines (1 of 2) [facility] Start: 02-17-2028 DTaP/Tdap/Td Vaccine s (8 - Td or Tdap) DTaP/Tdap/Td Vaccines (8 - Td or Tdap) [facility] Start: 08-02-2023 PHYSICAL, Provider: Koffi Uriarte, Status: Pen, Time: 9:00 AM PHYSICAL, Provider: Koffi Uriarte, Status: Pen, Time: 9:00 AM VU-NQFU-Mbfw [place] Work Phone: Start: 08-02-2023 End: 08-02-2023 Patient encounter procedure 08/02/2023 9:00 AM EST Office Visit [facility] [address] [place] [address] [place] [address] [place], [place] [id number] [facility] Start: 07-02-2023 PAP TESTING PAP TESTING [facility] Start: 07-02-2023 Screening for malignant neoplasm of cervix [facility] Start: 12-24-2022 ERIKA, Provider : Nedra Calderon, Status: Pen, Time: 10:00 AM ERIKA, Provider: Nedra Calderon, Status: Pen, Time: 10:00 AM AE-Qqysiqldh-Hzxtwlp e SJW DO Work Phone: Start: 05-22-2022 PHYSICAL, Provider: Koffi Uriarte, Status: Pen, Time: 9:50 AM PHYSICAL, Provider: Koffi Uriarte, Status: Pen, Time: 9:[address]-BEDA-Qefq [place] Work Phone: Start: 03-24-2022 End: 05-24-2022 Choriogonadotropin.bet a subunit [Units/volume] in Serum or Plasma HCG QUANTITATIVE Lab Routine Bleeding in early Expected: 03/24/2022, Expires: 05/24/2022 [facility] Work Phone: Comment on above: Expected: 03/24/2022 , Expires: 05/24/2022 Start: 03-19-2022 Influenza vaccination INFLUENZA (#1) [facility] Start: 12-24-2021 Thyroid stimulating hormone measurement TSH Level [facility] Start: 12-24-2021 FUVGENERAL, Provider : Nedra Calderon, Status: Pen, Time: 11:30 AM FUVGENERAL, Provider: Nedra Calderon, Status: Pen, Time: 11:30 AM QS-Fsxehlycc-Fwilrwk e W DO Work Phone: Start: 11-17-2021 FUV, Provider: Koffi Uriarte, Status: Pen, Time: 1:00 PM FUV, Provider: Koffi Uriarte, Status: Pen, Time: 1:00 PM BK-JGBW-Wmdd [place] Work Phone: Start: 07-01-2021 COVID-19 VACCINE (3 - Booster for Pfizer series) COVID-19 VACCINE (3 - Booster for Pfizer series) [facility] Start: 06-25-2021 FUVGENERAL, Provider : Nedra Calderon, Status: Pen, Time: 2:00 PM FUVGENERAL, Provider: Nedra Calderon, Status: Pen, Time: 2:00 PM UW-NBCJ-Skca [place] Work Phone: Start: 06-25-2021 FUVGENERAL, Provider : Nedra Calderon, Status: Pen, Time: 11:00 AM FUVGENERAL, Provider: Nedra Calderon, Status: Pen, Time: 11:00 AM LQ-DAUN-[place]ust [place] Work Phone: Start: 05-20-2021 FUV, Provider: Koffi Uriarte, Status: Pen, Time: 3:40 PM FUV, Provider: Koffi Uriarte, Status: Pen, Time: 3:40 PM EN-WFID-XahcMediaV Work Phone: Start: 03-31-2021 FUV, Provider: Koffi Uriarte, Status: Pen, Time: 2:00 PM FUV, Provider: Koffi Uriarte, Status: Pen, Time: 2:00 PM NV-ROSR-BfteMediaV Work Phone: Start: 03-26-2021 COVID-19 Vaccine (3 - Pfizer series) COVID-19 Vaccine (3 - Pfizer series) [facility] Start: 03-19-2020 Influenza vaccination Flu vaccine (# 1) [place], [place] Start: 03-02-2018 DTaP/Tdap/Td vaccine (7 - Td) DTaP/Tdap/Td vaccine (7 - Td) [place] Start: 03-02-2018 Urine microalbumin profile DTAP,TDAP,TD (7 - Td or Tdap) [facility] Start: 2014 Screening for malignant neoplasm of cervix [facility] Start: 10-02-2011 HEPATITIS C SCREENING HEPATITIS C [facility] Start: 10-02-2011 Hepatitis C screening Hepatitis C [facility] Start: 10-02-2011 HIV SCREENING HIV SCREENING [facility] Start: 2008 HIV screening [facility] screen [facility] [place] [place] Start: 2005 Adult depression screening assessment DEPRESSION SCREENING [facility] Start: 2004 HPV vaccine (1 - 2-dose series) HPV vaccine (1 - 2-dose series) [place], [place] Start: 04-09-1999 Varicella vaccination Varicell a Vaccines (1 of 2 - 2-dose childhood series) [facility] Start: 1994 Varicella vaccine (1 of 2 - 2-dose childhood series) Varicella vaccine (1 of 2 - 2-dose childhood series) [place], [place] Start: 1993 HIV screening HIV Screening [facility] Start: 1993 Lipid panel Lipid Panel [facility] Start: 1993 Yearly Adult Physical Yearly Adult P [facility] End: 04-18-2020 CT Head WO Contrast CT Head WO Contrast Imaging STAT Once for 1 Occurrences starting 04/18/2020 until 04/18/2020 [place] Comment on above: Once for 1 Occurrenc es starting 04/18/2020 until 04/18/2020 CT Head WO Contrast CT Head WO C ontrast Imaging STAT 04/18/2020 11:15 PM EDT [place] End: 04-18-2020 Prolactin Prolactin Lab STAT One Time for 1 Occurrences starting 04/18/2020 until 04/18/2020 [place] Comment on above: One Time for 1 Occur rences starting 04/18/2020 until 04/18/[address] AT 04/18/2020 11:17 PM EDT [place] XD-HRMA-Wvgg [place] Work Phone: [facility] NEGATED: Highlighted row has been ruled out! Planned Goals not documented FD-LHFH-Zgla [place] Work Phone: Immunizations Immunization Date Immunization Notes Care Provider Radha smith 04-21-2022 influenza, injectabl e, quadrivalent, preservative free Koffi A Uriarte Work Phone: QQ-PIZX-Tnpo [place] Work Phone: 04-18-2021 influenza, injectabl e, quadrivalent, preservative free Koffi A Uriarte Work Phone: JL-XETC-Dysz [place] Work Phone: 01-29-2021 Pfizer-BioNTech COVID-19 Vacc 30 MCG/0.3ML Intramuscular Suspension Koffi A Uriarte Work Phone: AK-FRPG-Brpi [place] Work Phone: 01-08-2021 Pfizer-BioNTech COVID-19 Vacc 30 MCG/0.3ML Intramuscular Suspension Koffi A Uriarte Work Phone: XN-WDMP-Luje [place] Work Phone: 05-09-2019 Influenza, injectabl e, [place]in [place] Canine Kidney, preservative free, quadrivalent Koffi Alison [employer]DSave Work Phone: [employer] Work Phone: 04-28-2018 influenza, injectabl e, quadrivalent, contains preservative Koffi Alison Uriarte Work Phone: [employer] Work Phone: 02-16-2018 tetanus toxoid, redu diego diphtheria toxoid, and acellular pertussis vaccine, adsorbed Koffi Rosas [employer] Work Phone: [employer] Work Phone: 05-06-2017 influenza, injectabl e, quadrivalent, preservative free Koffi Rosas [employer] Work Phone: [employer] Work Phone: 01-14-2016 pneumococcal polysaccharide vaccine, 23 valent Kfofi Rosas [employer] Work Phone: [employer] Work Phone: 11-30-2014 tuberculin skin test ; purified protein derivative solution, intradermal [facility], [place] 12-15-2013 tuberculin skin test ; purified protein derivative solution, intradermal [facility], [place] 03-02-2008 tetanus toxoid, redu diego diphtheria toxoid, and acellular pertussis vaccine, adsorbed [facility] 02-25-2007 meningococcal polysaccharide (groups A, C, Y and W-135) diphtheria toxoid conjugate vaccine (MCV4P) [facility], [place] 02-25-2007 Meningococcal, MCV4, unspecified conjugate formulation(groups A, C, Y and W-135) [facility] 03-12-1999 diphtheria, tetanus toxoids and acellular pertussis vaccine [facility] 03-12-1999 diphtheria, tetanus toxoids and acellular pertussis vaccine, unspecified formulation Koffi Uriarte Work Phone: [employer] Work Phone: 03-12-1999 haemophilus influenz ae type b vaccine, HbOC conjugate [facility] 03-12-1999 measles, mumps and rubella virus vaccine [facility] 03-12-1999 poliovirus vaccine, inactivated [facility], [place] 03-12-1999 trivalent poliovirus vaccine, live, oral [place], [place] 01-07-1995 diphtheria, tetanus toxoids and acellular pertussis vaccine [facility] 01-07-1995 diphtheria, tetanus toxoids and acellular pertussis vaccine, unspecified formulation Koffi Rosas [employer] Work Phone: [employer] Work Phone: 10-22-1994 haemophilus influenz ae type b vaccine, conjugate unspecified formulation [place], [place] 10-22-1994 haemophilus influenz ae type b vaccine, PRP-OMP conjugate Koffi Clementeson Work Phone: [employer] Work Phone: 10-22-1994 Hib, unspecified [place] 10-22-1994 measles, mumps and rubella virus vaccine [facility] 10-22-1994 poliovirus vaccine, inactivated [facility] 06-18-1994 hepatitis B vaccine, pediatric or pediatric/adolescent dosage Koffi Alison ClementeUriarte Work Phone: [facility] 06-18-1994 hepatitis B vaccine, unspecified formulation [facility] , [place] 04-16-1994 diphtheria, tetanus toxoids and acellular pertussis vaccine [place] 04-16-1994 diphtheria, tetanus toxoids and pertussis vaccine [facility] 04-16-1994 haemophilus influenz ae type b vaccine, conjugate unspecified formulation [facility], [place] 04-16-1994 haemophilus influenz ae type b vaccine, HbOC conjugate Brendan Blankenship PA-C Work Phone: [facility] 04-16-1994 haemophilus influenz ae type b vaccine, PRP-OMP conjugate Koffi A Uriarte Work Phone: [employer] Work Phone: 04-16-1994 Hib, unspecified [facility], [place] 04-16-1994 poliovirus vaccine, inactivated [facility] 04-16-1994 trivalent poliovirus vaccine, live, oral [facility], [place] 02-12-1994 diphtheria, tetanus toxoids and acellular pertussis vaccine [place] 02-12-1994 diphtheria, tetanus toxoids and pertussis vaccine [facility] 02-12-1994 haemophilus influenz ae type b vaccine, conjugate unspecified formulation [place] 02-12-1994 haemophilus influenz ae type b vaccine, HbOC conjugate Brendan Pattie PA-C Work Phone: [facility] 02-12-1994 haemophilus influenz ae type b vaccine, PRP-OMP conjugate Koffi Alison Chapito Work Phone: [employer] Work Phone: 02-12-1994 Hib, unspecified [facility], [place] 02-12-1994 poliovirus vaccine, inactivated [facility] 02-12-1994 trivalent poliovirus vaccine, live, oral [facility], [place] 01-08-1994 hepatitis B vaccine, pediatric or pediatric/adolescent dosage Koffi Alison Chapito Work Phone: [facility] 01-08-1994 hepatitis B vaccine, unspecified formulation [facility] , [place] 1993 diphtheria, tetanus toxoids and acellular pertussis vaccine [facility], [place] 1993 diphtheria, tetanus toxoids and pertussis vaccine [facility] 1993 haemophilus influenz ae type b vaccine, conjugate unspecified formulation [facility], [place] 1993 haemophilus influenz ae type b vaccine, HbOC conjugate Brendan Glasnilopp PA-C Work Phone: [facility] 1993 haemophilus influenz ae type b vaccine, PRP-OMP conjugate Koffi Uriarte Work Phone: CA-AMGL-Vhji [place] Work Phone: 1993 hepatitis B vaccine, pediatric or pediatric/adolescent dosage Koffi Uriarte Work Phone: [facility] 1993 hepatitis B vaccine, unspecified formulation [place], [place] 1993 Hib, unspecified [place], [place] 1993 poliovirus vaccine, inactivated [facility] 1993 trivalent poliovirus vaccine, live, oral [facility], [place] Payers Date Payer Category Payer Unknown 2020 Unknown MMO MMO [employer] [id number] 2020-Present [phone] [address] [place] [address] PPO [id number] 2019 Unknown [id number] 1993 Unknown [id number] 1993 Unknown [id number] 1993 Unknown [id number] 1993 Unknown [id number] 1993 Unknown [id number] 1993 Unknown [id number] 1993 Unknown [id number] 1993 Unknown [id number] 1993 Unknown [id number] 1993 Unknown [id number] 1993 Unknown [id number] 1993 Unknown [id number] 1993 Unknown [id number] 1959 Unknown [id number] Unknown [id number] Social History Date Type Detail Facility Start: 04-18-2020 End: 04-30-2023 Tobacco smoking status [facility] Never smoker [facility] Start: 04-18-2020 End: 04-30-2023 Tobacco use and exposure Never used [place] Start: 04-18-2020 End: 09-09-2021 Alcohol intake Current drinker of alcohol (finding) [place] Start: 09-19-2019 History SDOH Financial 5 [place] Start: 09-19-2019 History SDOH Food Worry 1 [place] Start: 09-19-2019 History SDOH Transport Med 2 [place] Start: 04-18-2020 Alcohol Comment occasionally [facility] [place], [place] Start: 1993 Sex Assigned At Not on file [place] Start: 04-20-2023 End: 04-30-2023 Exposure to SARS-CoV-2 (event) Not sure [place] Never smoker Never smoker DP-SLBR-Oqme La [place] Work Phone: Tobacco smoking status Never [facility] Sex Assigned At Female [facility] NEGATED: Highlighted row - - VE-INEA-EgfqJames [place] Work Phone: NEGATED: Highlighted rowStart: NINF History of tobacco use Passive smoker [facility] Work Phone: Functional Status Date Assessment Result Facility NEGATED: Highlighted row Functional performance Functional status health issues are not documented Disease YQ-WFWL-CgvxJames Ruby Work Phone: Mental Status Date Assessment Result Facility NEGATED: Highlighted row Cognitive function [Interpretation] Cognitive status health issues are not documented Disease ZG-NOVA-MgqaJames Ruby Work Phone: Clinical Notes 08-09-2017 to [...] 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 Patient Active Problem List Diagnosis Abnormal weight [...] 5/5 throughout all four extremities. Coordination Right: Xgpsnh-hg-ihhk normal.Left: Yneten-wx-bwzc normal. Physical Exam Eyes: Extraocular Movements: Extraocular [...] in 1 year documented in this encounter [facility] Work Phone: 11-25-2022 Note EXAMINATION: US [...] authenticated by: HAYLIE RIVER Date: 2022-11-25 17:20 [facility] 04-16-2022 Note HNO ID: [id number] Author: Brendan Blankenship PA-C Service: ? 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 I, Brendan Blankenship, have reviewed this information as documented for accuracy and performed all elements of history taking, and edited the record as necessary. 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 documented in this encounter [facility] 03-19-2022 Miscellaneous Notes LMP 02/11, +hpt. Assisted w initial OBV. Advised to take vitamin w folic acid. First trimester precautions provided. handbook sent in . documented in this encounter [facility] 02-03-2022 Miscellaneous Notes The following approved medication requests have been transmitted electronically. Signed Prescriptions Disp Refills metroNIDAZOLE (FLAGYL) 500 mg tablet 14 tablet 0 Sig: Take 1 tablet by mouth twice daily. for vaginosis. Do not drink alcohol while taking this medication MICHELLE: No Brendan Souza APRN.JUSTINE Pt reporting vag discharge/odor- same symptoms as past +BV dx. Last annual 06/2021. Req for BV medications Pending Prescriptions Disp Refills METRONIDAZOLE 500 MG TABLET 14 tablet 0 Sig: Take 1 tablet by mouth twice daily. for vaginosis. Do not drink alcohol while taking this medication MICHELLE: No documented in this encounter [facility] 09-09-2021 Note HNO ID: [id number] Author: Brendan Blankenship PA-C Service: ? 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 Portions of this record were documented by the Napper Fixer. I, Brendan Blankenship, have reviewed this information as documented for accuracy and performed all elements of history taking, and edited the record as necessary. 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 [...] Decision Making Level: 3 - Low [facility] 07-04-2021 Note HNO ID: [id number] Author: 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 APRN.CLAMSHELL OPERATOR Service: ? Author Type: Nurse Practitioner [...] Ectopic0 Multiple0 Live Births0 Comment: Menarche 10 Dye Jig Operator History LMP: 06/07/2021 (Exact Date), Having periods Age at Menarche: Age at First : Age at Menopause: Dye Jig Operator History Comments: Sexual Activity: Yes; Male; [...] external genitalia normal, normal Bartholin's glands, urethra, Everman's glands, no vulvar lesions, no cervical lesions, [...] type of detergents for washing undergarments, wiping kzkdy-zv-cqkq, sleep in loose shorts without underwear, shower immediately after intercourse/exercise, make sure perineum is gently blotted dry before dressing. Avoid scratching, scented pads/tampons/toilet papers, cranberry juice, bubble baths, and intercourse until symptoms are relieved. NO douching. If you shave, use a new razor at least twice monthly. 5) Follow up one year or sooner as needed 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 APRN.CLAMSHELL OPERATOR [facility] 08-09-2017 History of Past i llness Narrative Problem Noted Date Resolved Date NO SHOW 08/09/2017 08/09/2017 documented as of this encounter (statuses as of 02/03/2022) [facility] History of Past illness Narrative* Problem Noted Date Resolved Date NO SHOW 08/09/2017 08/09/2017 documented as of this encounter (statuses as of 03/19/2022) [facility] History of Past illness Narrative* Problem Noted Date Resolved Date NO SHOW 08/09/2017 08/09/2017 documented as of this encounter (statuses as of 03/24/2022) [facility] [facility] Plan note No data available for this section [facility] Diagnosis Acute vaginitis- Primary Vaginitis and vulvovaginitis, unspecified documented in this encounter [facility] note* Diagnosis Bleeding in early - Primary Unspecified hemorrhage in early , unspecified as to episode of care documented in this encounter [facility] note* Diagnosis Seizure (CMS/HCC)- Primary Other convulsions documented in this encounter [facility] Work Phone: History of Present illness Narrative* The patient states she has been doing well with her blood pressure control since the last visit. She has no comorbid illnesses. She has no significant interval events. * Symptoms: The patient is currently asymptomatic. * Less anxiety lately. Broke up with her boyfriend. * Working in [employer] at the [employer] department. * BP is much improved on lisinopril. * Saw gyne for discharge. * was told she had BV and chlamydia. * took antibiotics, got better for a few weeks and now she is having discharge again and odor. no pelvic pain. [employer] Work Phone: History of Present illness Narrative* The patient states she has been doing well with her blood pressure control since the last visit. She has no comorbid illnesses. She has no significant interval events. * Symptoms: The patient is currently asymptomatic. * Less anxiety lately. Broke up with her boyfriend. * Working in [employer] at the [employer]. * BP is much improved on lisinopril. * Saw gyne for discharge. * was told she had BV and chlamydia. * took antibiotics, got better for a few weeks and now she is having discharge again and odor. no pelvic pain. 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 * Seizure (Emirati) documented in this encounter Additional Source Comments INFORMATION SOURCE (unrecogn ized section and content) DATE CREATED AUTHOR [facility]/11/[facility] DATE CREATED AUTHOR AUTHOR'S ORGANIZ ATION 04/19/2020 [facility] DATE CREATED AUTHOR AUTHOR'S ORGANIZ ATION 05/11/2020 [facility] DATE CREATED AUTHOR AUTHOR'S ORGANIZ ATION 12/29/2020 [facility] DATE CREATED AUTHOR AUTHOR'S ORGANIZ ATION 04/14/2022 [facility] DATE CREATED AUTHOR AUTHOR'S ORGANIZ ATION 04/20/2022 [facility] DATE CREATED AUTHOR AUTHOR'S ORGANIZ ATION 08/11/2022 [facility] DATE CREATED AUTHOR AUTHOR'S ORGANIZ ATION 11/29/2022 [facility] DATE CREATED AUTHOR AUTHOR'S ORGANIZ ATION 12/27/2022 [facility] DATE CREATED AUTHOR AUTHOR'S ORGANIZ ATION 05/02/2023 [facility] DATE CREATED AUTHOR AUTHOR'S ORGANIZ ATION 07/30/2023 [facility] EPIC Reason for Visit (unrecogniz ed section and content) Status Reason Specialty Diagnoses / Procedures Referre d By Contact Referred To Contact Closed EEG Diagnoses Generalized idiopathic epilepsy and epileptic syndromes, not intractable, without status epilepticus Procedures EEG 16+ CHANNEL TELEMTERY 24HR Spike Garcia MD [address] [facility] [address] [place] [address] [facility] [address] [place] [address] Status Reason Specialty Diagnoses / Procedures Referre d By Contact Referred To Contact Closed Radiology Diagnoses Generalized idiopathic epilepsy and epileptic syndromes, not intractable, without status epilepticus Procedures MRI-BRAIN WO & W CONTRAST Spike Garcia MD [address] [facility] [address] [place] [address] [facility] [address] [place] [address] Reason Comments Seizures Seizure like activit y [...] or prosecute any alcohol or drug abuse patient.[facility] the event this information is protected by the Federal Confidentiality of Alcohol and Drug Abuse Patient Records regulations: The Federal rules restrict any use of the information to criminally investigate or prosecute any alcohol or drug abuse patient.[facility] HospitalIn the event this information is protected by the Federal Confidentiality of Alcohol and Drug Abuse Patient Records regulations: The Federal rules restrict any use of the information to criminally investigate or prosecute any alcohol or drug abuse patient.[facility] Care Teams (unrecognized sec tion and content) Sales And Production Manager Relationship Specialty Start Date End Date Koffi Uriarte MD PCP - General Family Practice 08/17/16 Sales And Production Manager Relationship Specialty Start Date End Date Koffi Uriarte MD PCP - General Family Practice 08/17/16 Sales And Production Manager Relationship Specialty Start [place] [address] [place], [place] [id number] PCP - General 08/14/20 [place] [address] [place], [place] [id number] PCP - MMO ACO PCP 02/16/23 FOR [...] BE BASED ON THE PRIMARY CLINICAL RECORDS. [employer] provides no warranty or guarantee of the accuracy or completeness of information in this document.
[2023-07-31 11:28] VITALS: BP 117/66; PULSE 68
--- OUTSIDE RECORDS SUMMARY | 2023-08-18 09:06 | XMS_ITS | CCD ---
Author Name Unknown Address [address] [place] [address] Organization [facility] Care Team Providers Care Room Attendant Name Role Phone Uriarte, Koffi A Unavailable Unavailabl e Uriarte, Kofif A Unavailable Unavailabl e Uriarte, Koffi A [...] Primary Care Provider Uriarte, Koffi A Unavailable [phone] Unavailable Unavailable Unavailable Unavailable Unavailable Unavailable Koffi [...] e BRENDAN BLANKENSHIP Attending Unavailable CHAPITO, KOFFI A Primary Care Unavailabl e Unavailable Unavailable APRIL ., DR GONZALEZ Admitting Unavailable APRIL ., DR GONZALEZ Attending Unavailable APRIL ., DR GONZALEZ Consulting Unavailable APRIL ., DR GONZALEZ Admitting Unavailable APRIL ., DR GONZALEZ Attending Unavailable MILFORD, DR HAYLIE Garcia Consulting Unavailable APRIL ., DR GONZALEZ Consulting Unavailable Chapito, Dr. Koffi Rosas Primary Care Dario Uriarte, Dr. Koffi Rosas Attending Dario Uriarte, Dr. Koffi Rosas Referring Koffi Oquendo MD Primary Care Provider Koffi Uriarte MD Unavailable NEDRA CALDERON Attending Unavailable KOFFI URIARTE Primary Care Unavailabl e Willis Chen Attending Unavailable AprilWillis Admitting Unavailable CLARKSHIMA Attending Unavailable CLARK, SHIMA Attending Unavailable APRILWILLIS Attending Unavailable CLARK, SHIMA Attending Unavailable CLARK, SHIMA Attending Unavailable CLARK, SHIMA Attending Unavailable Allergies Allergy Classification Reported Allergen(s) Allergy Type Date of Onset Reaction(s) Facility (1 source) No Known Medication Allergies; Translations: [No Known Medication Allergies] Propensity to adverse reactions (disorder) [facility] Repository Medications Current Medications Medication Drug [...] Start: 10-12-2015 take 1 tablet by jolie once daily Orsythia 0.1-20 MG-MCG Oral Tablet [...] Start: 10-14-2020 take 1 tablet by jolie th once daily Lisinopril 10 MG Oral Tablet [...] oral tablet (1 source) Biguanide Start: 11-17-19 23 End: 04-30-20 23 take 1 tablet by [...] 10-02-2022 10-02-2022 Episodic Unclassified (1 source) R07.9 39430/8 Onset: 05-04-2017 Unclassified (5 sources) Patient encounter status; Translations: [Encounter for audiology evaluation] NEGATED: Highlighted row has not occurred!Residual codes; unclassified (17 sources) Disease Episodic Results Test Name Value Interpretation Reference Range Facility [facility] 08-04-2023 L Specimen: [id number] Received: 08/04/23150 Status: LAZARA Le Num: [id number] Spec Type: Surgical Subm Dr: Willis Chen Tissues: A Placenta - 3rd Trimester (Greater than 28 weeks) (PLACENTA) Procedures: HE/3, Gross/Micro L5 Age/ Patient Sex Location Account Attending Physician Princess Cantu 27/F LABELL [id number] Willis Chen SPEC NUM: [id number] RECD: 08/04/23 STATUS: LAZARA LONDONElmer NUM: [id number] JOSE: 08/04/[address]: Willis Chen ENTERED: 08/04/[address] [facility] [address]: Giselle,Lab SPEC TYPE: Surgical DEPT: [...] parenchyma up to 3.1 cm in thickness. 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 Loading sections are submitted in 3 cassettes as follows: A1 - membranes, umbilical cord, and decidua basalis A2 - Central placenta full-thickness A3 - Peripheral placenta, full-thickness ---- Specimen: [id number] Received: 08/04/23 Status: LAZARA Rey Num: [id number] Spec Type: Surgical Subm Dr: Willis Chen Tissues: A Placenta - 3rd Trimester (Greater than 28 weeks) (PLACENTA) Procedures: Bruce TODD L5 ---- Patient: CantuPrincess [id number] (Continued) ---- Specimen: [id number] Received: 08/04/23 (Continued) Signed (signature on file) Juliet Sykes MD 08/08/232229 ---- Specimen: [id number] Received: 08/04/23 Status: LAZARA Le Num: [id number] Spec Type: Surgical Subm Dr: Willis Chen Tissues: A Placenta - 3rd Trimester (Greater than 28 weeks) (PLACENTA) Procedures: DELMYJesica Ott/Danitza L5 ---- Patient: Cantu,Princess Rosas [id number] (Continued) ---- Specimen: [id number] Received: 08/04/23 (Continued) CPT Codes 07963 ---- ---- Specimen: [id number] Received: 08/04/23 Status: LAZARA Le Num: [id number] Spec Type: Surgical Subm Dr: Willis Chen Tissues: A Placenta - 3rd Trimester (Greater than 28 weeks) (PLACENTA) Procedures: HE/3, Gross/Micro L5 ---- Patient: Princess Cantu [id number] (Continued) ---- Signed (signature on file) Juliet Sykes MD 08/08/23 2230 [facility] DHEA SERUMon 11-20-2022 Dehydroepiandrosterone (DHEA) 656 ng/dL Normal 31-701 [facility] Comment on above: Performed By: #### D LAMAR. #### [facility] [address] [place] [address] Dr. Vish Brown ANTI-MULLERIAN HORMONEon Anti-Mullerian Hormone (AMH) 4.47 ng/mL Normal [facility] Comment on above: Result Comment: For assays employing antibodies, the possibility exists for interference by heterophile antibodies in the samples.1 1.Favio Correia. Interferences in Immunoassays - still a threat. Clin. Chem. 2000; 46: 1402-8461. This test was developed and its performance characteristics determined by [employer]. It has not been cleared or approved by the Food and Drug Administration. Reference Range: Females 26 - 30y: 1.03 - 11.10 Median 4.20 AMH concentrations of >= 1.06 ng/mL is correlated with a better response to ovarian stimulation, produced more retrievable oocytes and higher odds of live according to Gleicher et al. Fertility and Sterility. 2010: 94:0243-2207. The current AMH test method correlates with [...] AMH-secreting ovarian tumor. Performed By: #### L SUHAS #### [facility] [address] [place] [address] Dr. Vish Brown DHEA-SULFATEon 11-17-2022 DHEA-Sulfate 449.0 ug/dL Critically high 84.8-378.0 [facility] Comment on above: Performed By: #### L SUHAS #### [facility] [address] [place] [address] Dr. Vish Brown ESTRADIOLon 11-17-2022 Estradiol 34.3 pg/mL Normal [facility] Comment on above: Result Comment: Adul t Female: Follicular phase 12.5 - 166.0 Ovulation phase 85.8 - 498.0 Luteal phase 43.8 - 211.0 Postmenopausal <6.0 - 54.7 1st trimester 215.0 - >4300.0 Ele ECLIA methodology Performed By: #### Rio CORONA #### [facility] [address] [place] [address] Dr. Vish Brown FSHon 11-17-2022 FSH 6.1 mIU/mL Normal [facility] Comment on above: Result Comment: Adul t Female: Follicular phase 3.5 - 12.5 Ovulation phase 4.7 - 21.5 Luteal phase 1.7 - 7.7 Postmenopausal 25.8 - 134.8 Performed By: #### [facility] #### [facility] [address] [place] [address] Dr. Vish Brown LUTEINIZING HORMONE (LH)on 0 11-17-2022 LH 4.5 mIU/mL Normal [facility] Comment on above: Result Comment: Adul t Female: Follicular phase 2.4 - 12.6 Ovulation phase 14.0 - 95.6 Luteal phase 1.0 - 11.4 Postmenopausal 7.7 - 58.5 Performed By: #### L SUHAS #### [facility] [address] [place] [address] Dr. Vish Brown PROGESTERONEon 11-17-2022 Progesterone 0.8 ng/mL Normal [facility] Comment on above: Result Comment: Foll icular phase 0.1 - 0.9 Luteal phase 1.8 - 23.9 Ovulation phase 0.1 - 12.0 First trimester 11.0 - 44.3 Second trimester 25.4 - 83.3 Third trimester 58.7 - 214.0 Postmenopausal 0.0 - 0.1 Performed By: #### P TASNEEM #### [facility] [address] [address] [address] Vish Brown CBC AUTO DIFFon 11-16-2022 BASO # 0.0 103/ul Normal 0.0-0.1 [facility] Comment on above: Performed By: #### L BCLH #### [facility] [address] [place] [address] Dr. Vish Brown Basophils/100 WBC (Bld) 0.5 % Normal 0.2-2.0 [facility] Comment on above: Performed By: #### L BCLH #### [facility] [address] [place] [address] Dr. Vish Brown EO # 0.3 103/ul Normal 0.0-0.7 [facility] Comment on above: Performed By: #### L BCLH #### [facility] [address] [place] [address] Dr. Vish Brown Eosinophils/100 WBC (Bld) 4.0 % Normal 0.9-7.0 [facility] Comment on above: Performed By: #### L BCL #### [facility] [address] [place] [address] Dr. Vish Brown Erythrocyte distribution width (RBC) [Ratio] 12.0 % Normal 11.0-15.0 [facility] Comment on above: Performed By: #### L BCLH #### [facility] [address] [place] [address] Dr. Vish Brown Hematocrit (Bld) [Volume fraction] 39.1 % Normal 36.0-48.0 [facility] Comment on above: Performed By: #### L BCLH #### [facility] [address] [place] [address] Dr. Vish Brown Hemoglobin (Bld) [Mass/Vol] 13.0 g/dL Normal 12.0-16.0 [facility] Comment on above: Performed By: #### L BCLH #### [facility] [address] [address] [address] Vish Brown IG # 0.02 10e3/ul Normal 0.00-0.03 [facility] Comment on above: Performed By: #### L BCLH #### [facility] [address] [address] [address] Vish Brown IG % 0.3 % Normal 0.0-0.5 [facility] Comment on above: Performed By: #### L BCLH #### [facility] [address] [place] [address] Dr. Vish Brown LYMPH # 2.5 103/ul Normal 1.2-3.8 [facility] Comment on above: Performed By: #### L BCLH #### [facility] [address] [place] [address] Dr. Vish Brown Lymphocytes/100 WBC (Bld) 32.4 % Normal 20.5-60.0 [facility] Comment on above: Performed By: #### L BCLH #### [facility] [address] [place] [address] Dr. Vish Brown MANUAL DIFF REQ NO Normal [facility] Comment on above: Performed By: #### L BCLH #### [facility] [address] [place] [address] Dr. Vish Brown MCH (RBC) [Entitic mass] 29.9 pg Normal 26.7-34.0 [facility] Comment on above: Performed By: #### L BCLH #### [facility] [address] [place] [address] Dr. Vish Brown MCHC (RBC) [Mass/Vol] 33.2 g/dL Normal 29.9-35.2 [facility] Comment on above: Performed By: #### L BCLH #### [facility] [address] [place] [address] Dr. Vish Brown MCV (RBC) [Entitic vol] 89.9 fL Normal 81.0-99.0 [facility] Comment on above: Performed By: #### L BCLH #### [facility] [address] [address] [address] Vish Brown MONO # 0.6 103/ul Normal 0.3-0.8 [facility] Comment on above: Performed By: #### L BCLH #### [facility] [address] [address] [address] Vish Brown Monocytes/100 WBC (Bld) 7.4 % Normal 1.7-12.0 [facility] Comment on above: Performed By: #### L BCLH #### [facility] [address] [address] [address] Vish Brown NEUT # 4.3 103/ul Normal 1.4-6.5 [facility] Comment on above: Performed By: #### L BCLH #### [facility] [address] [place] [address] Dr. Vish Brown Neutrophils/100 WBC (Bld) 55.4 % Normal 43.0-75.0 [facility] Comment on above: Performed By: #### L BCLH #### [facility] [address] [address] [address] Vish Brown Platelet mean volume (Bld) [Entitic vol] 9.0 fL Critically low 9.5-13.5 [facility] Comment on above: Performed By: #### L BCLH #### [facility] [address] [address] [address] Vish Brown PLT 277 103/ul Normal 150-450 [facility] Comment on above: Performed By: #### L BCLH #### [facility] [address] [place] [address] Dr. Vish Brown RBC 4.35 106/ul Normal 4.20-5.40 [facility] Comment on above: Performed By: #### L BCLH #### [facility] [address] [address] [address] Vish Brown WBC 7.7 103/ul Normal 4.0-11.0 [facility] Comment on above: Performed By: #### L BCLH #### [facility] [address] [place] [address] Dr. Vish Brown FREE T4on 11-16-2022 Free T4 [Mass/Vol] 1.08 ng/dL Normal 0.76-1.46 [facility] Comment on above: Performed By: #### F T4 #### [facility] [address] [place] [address] Dr. Vish Brown GLYCOHEMOGLOBIN A1Con 2022 ADA RECOMMENDATION SEE BELOW Normal [facility] Comment on above: Result Comment: ADA RECOMMENDED LIMIT 4.0 - 6.0 ADA THERAPEUTIC TARGET < 7.0 ACTION SUGGESTED > 7.0 Performed By: #### A 1C #### [facility] [address] [place] [address] Dr. Vish Brown Glucose [Mass/Vol] 94 mg/dL Normal [facility] Comment on above: Performed By: #### A 1C #### [facility] [address] [place] [address] Dr. Vish Brown HbA1c (Bld) [Mass fraction] 4.9 % Normal 4.5-6.2 [facility] Comment on above: Performed By: #### A 1C #### [facility] [address] [place] [address] Dr. Vish Brown PREG QUANT HCGon 11-16-2022 HCG QUANT <1 Normal [facility] Comment on above: Performed By: #### P REGQNT, TSH #### [facility] [address] [place] [address] Dr. Vish Brown HCG RANGE SEE BELOW Normal [facility] Comment on above: Result Comment: 5-50 0.2-1 WEEK 50-500 1-2 WEEKS 100-5,000 2-3 WEEKS 500-10,000 3-4 WEEKS 1,000-50,000 4-5 WEEKS 10,000-100,000 5-6 WEEKS 15,000-200,000 6-8 WEEKS 10,000-100,000 2-3 MONTHS Performed By: #### P REGQNT, TSH #### [facility] [address] [place] [address] Dr. Vish Brown TSHon 11-16-2022 TSH 2.030 uIU/mL Normal 0.358-3.740 [facility] Comment on above: Performed By: #### P REGQNT, TSH #### [facility] [address] [place], [place] [address] Dr. Vish Brown HM 19-49 Yearson 07-31-2022 [...] Services - Lab To Draw (Blood Test); Due:[id number];Ordered; For:Benign essential hypertension; Ordered By:Koffi Uriarte; Lipid [...] Occasional alcohol (more content not included)... Normal [employer] Tobacco Screening.on 023 Adult depression screening assessment No [employer] Phone: Fall risk assessment a) No falls within the last year [employer] Phone: Tobacco use status CPHS b) No [employer] Phone: B-HCG SerPl-aCncon 2 HCG.beta subunit Qn m[IU]/mL Normal <5.0 [facility] Comment on above: Order Comment: Speci men Type: BLOOD SPECIMENOrdering Facility: [facility] Address: [address] [place] [phone] Result Comment: Soledad kyle Performed By: #### G CCT #### [address] [address] BACTERIAL VAGINOSIS AMPLIFIC ATIONon 04-16-2022 Lactobacillus crispatus+gasseri+jense james + Gardnerella vaginalis + Atopobium vaginae rRNA HUMERA+probe Ql (Vag fld) Negative Normal Negative for bacterial vaginosis [facility] Comment on above: Order Comment: Speci men Type: SWAB Ordering Facility: [facility] Address: [address] [place] [address] Performed By: #### C VTV, BVAMP #### [facility] CLIA [id number] [address] [place] [address] [place] C. trachomatis+N. gonorrhoea e DNA HUMERA+probe Ql (Unsp spec)on 04-16-2022 C. trachomatis DNA HUMERA+probe Ql (Unsp spec) Negative Normal Negative for Chlamydia trachomatis by amplificaton [facility] Comment on above: Order Comment: Speci men Type: SWAB Ordering Facility: [facility] Address: [address] [place] [address] Performed By: #### C VTV, BVAMP #### [facility] CLIA [id number] [address] [place] [address] [place] N. gonorrhoeae DNA HUMERA+probe Ql (Unsp spec) Negative Normal Negative for Neisseria gonorrhoeae by amplification [facility] Comment on above: Order Comment: Speci men Type: SWAB Ordering Facility: [facility] Address: [address] [place] [address] Performed By: #### C VTV, BVAMP #### [facility] CLIA [id number] [address] [place] [address] [place] MITCH / TRICHOMONAS AMPLIF ICATIONon 04-16-2022 MITCH / TRICHOMONAS AMPLIFICATION [employer] RNA: Negative for Mitch species MITCH GLABRATA RNA: Negative for Mitch glabrata TRICH VAG AMPLIFICATION RNA: Negative for Trichomonas vaginalis by amplification Normal [facility] Comment on above: Performed By: #### C VTV, BVAMP #### [facility] CLIA [id number] [address] [place] [address] [place] CNCOon 04-16-2022 CNCO Letter Text Letter Text Normal 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 I, Brendan Blankenship, have reviewed this information as documented for accuracy and performed all elements of history taking, and edited the record as necessary. ROS: SEE HPI PE: GENERAL: well-appearing, in no acute distress LUNGS: Normal inspiratory effort WHITE METAL CASTER: Normal external genitalia, no vaginal bleeding, small [...] Order(s):MITCH / TRICHOMONAS AMPLIFICATION [SQCVTV] Order #: [id number]. #:[id number] BACTERIAL VAGINOSIS AMPLIFICATION [SQBVAMP] Order #: [id number]. #:[id number] GC/CHLAMYDIA DNA DET [SQGCCAMP] Order #: [id number]. #:[id number] SYPHILIS TOTAL W/REFLEX [SQSYPHTX] Order #: [id number] FUTURE HIV 1 2 COMBO(AG/AB),WITH REFLEX TO DIFFERENTIATION [SQHIV12] Order #: [id number] FUTURE HEP C AB IA W/CONF SCRN [HULSBO2X] Order #: [id number] FUTURE HEP B SURF AG SCRN [SQHBSAG] Order #: [id number] FUTURE Prescriptions as of 04/16/2022 - lamoTRIgine [...] Status:Closed by BRENDAN BLANKENSHIP on 04/16/[address] [facility] HBV surface Ab IA Ql (S)on 0 04-16-2022 HBV surface Ag Ql (S) Negative Normal Negative [facility] Comment on above: Order Comment: Speci men Type: BLOOD SPECIMENOrdering Facility: [facility] Address: [address] [place] [address] Performed By: #### G CCT #### [address] [address] HCV Ab Ser Qlon 04-16-2022 HCV Ab Ql (S) Negative Normal Negative [facility] Comment on above: Order Comment: Speci men Type: BLOOD SPECIMEN Ordering Facility: [facility] Address: [address] [place] [address] Result Comment: The result suggests no evidence of active infection with Hepatitis C virus. Should recent infection be suspected, repeat testing may be considered 4-6 weeks after this draw. Performed By: #### 1 6128-1 #### [facility] CLIA [id number] [address] [place] [address] [id number] [place] [address] STATES OF [facility] HIV 1+2 Ab IA Qlon 2 HIV 1 and [address] Nom Normal [facility] Comment on above: Order Comment: Speci men Type: BLOOD SPECIMENOrdering Facility: [facility] Address: [address] [place] [address] Result Comment: Test not indicated. Performed By: #### G CCT #### [facility] [employer] [address] [place] [phone] HIV 1+2 Ab+HIV1 p24 Ag IA Ql Non-Reactive Normal Nonreactive [facility] Comment on above: Order Comment: Speci men Type: BLOOD SPECIMENOrdering Facility: [facility] Address: [address] [place] [address] Performed By: #### G CCT #### [address] [place] [phone] [facility] Comment on above: Order Comment: Speci men Type: BLOOD SPECIMENOrdering Facility: [facility] Address: [address] [place] [address] Result Comment: No e vidence of HIV-1 or HIV-2 infection. Should recent infection be suspected, repeat testing may be considered 2-3 weeks after this draw. [place] Rev. Code 3701.243(E): This information has been [...] diagnoses. Performed By: #### G CCT #### [place] [phone] Reagin and Treponema pallidu m IgG and IgM [Interp]on 04-16-2022 SYPHILIS INTERPRETATION Cannot exclude r ecent Treponemal infection if specimen collected within 7-10 days after appearance of suspect lesions or 2-3 weeks after an exposure. Clinical correlation is required. Normal [facility] Comment on above: Order Comment: Speci men Type: BLOOD SPECIMENOrdering Facility: [facility] Address: [address] [place], [place] [phone] Performed By: #### G CCT #### [address] [place] [address] T. pallidum IgG+IgM IA Ql (S) Non-Reactive Normal Nonreactive [facility] Comment on above: Order Comment: Speci men Type: BLOOD SPECIMENOrdering Facility: [facility] Address: [address] [place] [phone] Performed By: #### G CCT #### [address] [place] [address] Coding Summary.on 03-27-2022 Coding Summary. CD:[id number] Gh 0bWw+PGhlYWQ+VQ5OTRGkE 76dhICmjM5CQ1vWXF3SEDP KCZFJID0DEH0msKI0KFcsH 2VybiAv CqidhJDbYR61UCd4WSB9yG jjOXbplJ8lyLWrB5y4KvWv UN82qP92IJwqNFWyXnG9Dt ZpbjsgbWFy H5msQyXluEVxYak+PHRhYm xlIHdpZHRoPScxMDAlJyBz vQhvQO8pLv3oXLVzFXCfmF xhcHNlOiBj q7cuJSNxZWuzGO5arAjlX4 JuwLA3ONYxd6x1Zu46oHL+ SXUgOZA3zWiwAHgno448Co Bjq1gvFLZ1 gVDoGBcjIRE2W34iv4X5XZ ArOWJsQRE9gEZ3gK3byUbn tgynJ5DpyKNbIbZ5LYL0vR IekE6xwFgi obsxhB4nSgn+W95ZQJ8ISS POOV6ZQmr3O9PsRkloiNF+ JX45UEDnNS01xFGepPYwc9 vxhFb4IjUa PQOwHQP6cKknWIyhw9NvFU VcH38xkGDqa1V3OEFgeEsz yMUrIcJyoEZ0eE6eWOmrtz qbv5fyodmp Icdsr9xytu95pQ57E98kZI kgDFAkLMV9LEEvCRPsdAjn oz9jkW7hFr6+OYefm4hhb2 fzmIm0AwDz JTXaabKfwLwuNKL0a8JmWo 61B3LtjQlvu1YtMxt2yz37 hXKxa0V1nXX1DRweQYCimC 8xIZtaGcS2 VRItXuOqyN75jNKvXXxpWn 2ceOgdmVsjWK6gYZUalrvq VCCnuV5hBKAxfAOzjUtxEI 4wNTBpbjtm p272IuIbRHC3FARsjDMuZ3 SkwL3pKcIaHCSfQLZkL2Pw yKTgOGybT363LHidQdI6QB ZhdvOoJ5Xi PRQyuGeyJtL8z3Y9Dh3Bf0 FsdicfKHE9TKlePYU9ZeB3 RpSaZmE9G0WiZcj2UBJfnC zuSI6kU9By TKVkqotzqdekxIE6ZYIoUB OcqR76wACpFAsrHp4ek8S3 d412CERyRIDycR07Yh3cqY ogMTBwdCBU pW4zingub7ijyhlfCkOuWO ThBXv4XCe2AQEqqByzUuCa FMY3JwN7ODS4eVDdxH1ssY gvndppwU5k Oyc+L96qlN3uYEC2HSB0hr zkFKPtmvPeOD60OR71C5Qz PjwvdGFibGU+PGRpdiBzdH ebWR4fXfMo u5oqi9TgTKiwG9HcMZUlJZ ctRgg8QYSgMPJ4hQA7nE3n SKGnJNmgn3Q8nSQ0O5Xhvm Njhu2wh7nn OJWlWBjwM88szFHrk9F9DD GynMA2EWAiiImmKbExpE94 Oyc+EVNrsGodu5SoIlfxd8 kzf0pchVz7 BhBqIYNjauKwuKsyYYH0g2 TvCf86E65vGErzAYGhNIYh PHWlABGmmSebws5piG2dFd 8+PGNvbCB3 rEI2sO3nLEDiMnA2PFcuG9 13CzZktWByJftdb6sax5ik aQg8RaQcRBXtcvFmwWimTA Y5j2DsSr94 D31vOCpqGHHkNTTyTDFeWN ZarGpuiu8nlH1hDz8+PC9j b2eone72fS65xVS+PHRkIH M9vPtzCAls TNKbxH2jYYkkDiN4XBVuIu QtrN67aDWhKUjzZh3brQvw bRsrGC2fCPQplxipu629Lz Lqc2zbPKUy sHZiSDxcKGI0A87jn3R6IH TfRLJbQSM2kGD1nG7erFso bjogbGVmdDsgdmVydGljYW sfOEvdK530 IHRvcDsnPlBhdGllbnQgTm KeFZu2C5VeNzo6SOKspDcy RI5fhXInJEsnXc7nsFruxB pwYU2nMGSb otvpw107AbTed4fxFAFljB JfOGpeCEZ5D98ij7B4YNOh HDLmWCU7gTK1nX9toIevgo ogbGVmdDsg sqBmoNihXCtgCMjuO997KL RvcDsnPkJpcnRoIERhdGU6 DF06XG47rBYri5Q7qLH8E7 BhZGRpbmct mtwhiGG3MNSpUURilP01Wt 2fiBwcKl6oQJRfBHG4ECGp cRIhA8JmsZ0dTwShBIFiHG RvU7UvjVZg FKcrG063WSjePjP9TIPctu WuH6UhICAcmXfnWtV1q8Z0 Sp2KO4U6AR29EJ02nCDfe4 U3tDD4U4Ib WNZqidzhtqypjZA7YMMcNW CtjJ01Tm8eqTrfEg6sMJIt XVP1SEGgrBXdA2UheY9uSc AjMDAwMDAw J4BkuIEmWStbD096GMgeIt B5IOYtivXbT6HlRBActMip MiJ6n5Z2Yc2TTZk0GI58TE 06eANtx0K6 cVH9D0BnCYFdaffurizxuU I5BCXkVAKdiG81Oi4vtVhw Me6sEAAzLHZ6QHQofMKyH6 RlrJ0xPyDq OCSjDKJbP4TdmMVoDVsbB4 37QSsgBvD6JFXrjlDdD1Mk ALWnsVprUzT5n7I1Fr4ZZD HdDR56OWY5 dZK3VK87LR36Y8KdOqcisP FibGU+PHRhYmxlIHdpZHRo QQunXHSwIwQzbVsiBT5cGv 9yZGVyLWNv hPiduCLrJoXfv5swJYGmTY lcDX8jdNobA9WkyNG1YMYo z4z6Hm60F91vM5TusPO+PG WhoUV2wPZ5 oD4mOuMmPiM4KZmgV360Sl LsmORnJvufi4hjc3mnrTw1 MqW1TMLsoqSazXsjNDA6v5 AcAw87U04m IHdpZHRoPSIxNSUiIHZhbG jftm6lnC2gCs7+PGNvbCB3 wBP2kM7gIxQfPmJ4UYqtP5 49InRvcCIv Fdvom3ith2tfyHn2OcHzLB WksxRawDysOLE8u8VjMd77 B2QgtQnvu8LoAnc5ae10hX Zia6V9qVE8 B4BlSHVwnevirZYlhLecCB 0pDBFumpoyGFBjbE7tWIHe W3w9GaCvOqA9FJdvI3Umza P3BKHfjNEh QGshTWE7L48kp6J6ZVAxUL XdKMG3xFO0zV8pgNulctbn bGVmdDsgdmVydGljYWwtYW zpL059COTu fKhwCDZbmM3mZWFbzLByiC guFW5pPGCpluqzPcDFG0uh DK8YS4EMWEE4N2QkHxv2CC HesDbpIC9r uNRpHQbhAj4xdYvppKufZH 9nENYcbckkIJWknO2oKTLr jUPfmJjmTM4eFYGqpvzyn7 75EpNjFNA2 IVXmzIJqY2OetN7dTtTeAO AvRNJbE0MqtCEnNWpnJ447 VXrcTtF3JGYzwgXgB1EcTS FsaWduOiB0 e4S9Vs2hZk3mJe7cOPo0ZT 00NU92gANfb8W7yXX8H5Fm HOOwnfthsztknFU5OJVfYF BwwY11bFRs CInkCg7cc3Q1c552JBWeSF KsaE45Fs7jmRweNAOhkNVV yD7mjftla7goxzpcQeLaAS WeFLl4SRw2 PNTkeDvsLxSzEMU2SxM0CF Y0sWFehN0zwBvqtenyaP4w Oyc+QxcvGUZtqsL2S5DcCw e6YLUijOkq KM8khAGfANbcAs4opMnqdH vqGG5lRCZbvhexTVOljS2f KIGfuPUhzVqfBL2tOYAxov myu277ZxHr OWD4NVYpiKIeS5QspH4cFj GoFOSeCCBfZ6EobLJpZNxf T257IJyoObK5QFVwhsPcU1 FsLWFsaWdu HcS4b8J2Oi5HKJ6juRQ9G8 VtUmy7VFFhxLtbKB6hwWYy WJhjGx1iyYqeaCcrQN0wLY BpbjtwYWRk cJ4dOYKcwOPjqKhzWN0hYJ Xbxpfpj028VmRhDRK1MPNy bOKsJ6YyaC5dPrLsVYAlFF JxQ0GsuDOh XGifX127BBjnClM9RDUfbp HxT4UyXFIhvCyiCpP9j8B0 Ce9CsSYjKQZzZH00QG21RD 67D9NeStgx dGFibGU+PHRhYmxlIHdpZH NdTOktQEWfBhFrjHlkOP8v Pe7gFDXkAILmiLuosQLjSk Tzc2lnIASz FDbbGI6brKsbZ7DseQQ2ZZ Qgr6f8Od07T90vZ5GosDB+ TKWhfGL7dTC7mZ4xYlAdOq P8MXxbY092 WgHpyKKpGkcfo3ccc8ykxG y2RlOuPHDbocFrbZwyGFN1 d9YqWk52R69pIXkbOADxJU IyMCUiIHZh rNwrmo3chJ4pKc2+PGNvbC E5kYK8oQ5gDkOaBuV0NWsr X693MpRtoMKwKswmE01fV5 JvdXA+PHRy Psd7CHOojNutFC0fjREvEL beJu8iVYE1DzVwBgZjKEbb E7UdWPClrbmvtovtpFP6KU YgRAQttU49 Ru1ljKsrUw4eRZZqQPL0VQ SayQTvF1BnrB6uNwFfPGCz UFPzH1QgqRPsOVijA093ZZ gdSzX4PVBw uxTaJ8VwEAHxcRqhFhO3s1 T3Wd4MgXxymBSoUO5lRsJc RYl4V1SvXnk9ZXSnxZdlFW 0ncGFkZGlu In8reCdswJpqEY9uMAVjra mca510CePft7vtLQNfyONc FNfwKOP7K17xv5U5AKAcFC HsBXZ8fJK0 aK9oyFrsjbhtsRMquVvamv JqvQrxHObgSLykO628FOOk yNnhLfEGPjw1O6YvZng0UL YyoLedAC6l lUPbMVsaEu7uiVbzdTuxCQ 8kLMWanxsln515HuOvi2vv UITmySCyVXbcMJT8J05vx4 S1IFHmQIUk YIF8nDA7cE0fcBbcuikhcS VmdDsgdmVydGljYWwtYWxp Q157NYSrrSvxAj2MExg2F5 NsLjk5AWMl uAfyQF3jfROxFBvnJc5feW wjbXsxUA2tLVMjdzzmu382 KcItz4poIQHofPWmMKckAT P7I10sh0I8 UWGrVRUyTUC4wQB7yL2yvS lnbjogbGVmdDsgdmVydGlj SSzeEEtzL599JIXjwRhdLt BheWVyOjwv dGQ+CR93xh88K3GdWtjmEu n9MPXzTHP7yLP2pE7pQNXt IGxgf8X5tVD7V8QlruKelt 1vc6ucKZDh ZTog (more content not included)... Normal [facility] Quanton 03-24-2022 HCG.beta subunit Qn 1 m[IU]/mL Normal 1-3 [facility] Comment on above: Result Comment: GEST ATIONAL AGE HCG RANGE (mIU/mL) NON- <1-3 0.2-1 WEEKS 5-50 1-2 WEEKS 50-500 2-3 WEEKS 100-5,000 3-4 WEEKS 500-10,000 4-5 WEEKS 1,000-50,000 5-6 WEEKS 10,000-100,000 6-8 WEEKS 15,000-200,000 8-12 WEEKS 10,000-100,000 Performed By: #### 2 [id number] #### [facility] [address] [place] [id number] CHEMISTRYOrdered By: SYSTEM SYSTEM on 03-24-2022 HCG.beta subunit Qn 1 m[IU]/mL Normal 1 - 3 mIU/mL FTM C Remisol CNPDebora 03-24-2022 CNPN Telephone ([facility]) PRINCESS CANTU ([id number]) 1995 F Date Time Provider Department 03/24/22 KAVITA SWEET [facility] During your visit today, we recorded the [...] Fully Assessed Reason for Visit: Bleeding With [71966] Primary Visit Diagnosis:Bleeding in early [O20.9] Order(s):HCG QUANTITATIVE [SQHCGQT] Order #: [id number] FUTURE Prescriptions as of 03/24/2022 - metroNIDAZOLE [...] Encounter Status:Closed by BRENDAN SOUZA on 03/24/22 [facility] Consent for Treatmenton Consent for Treatment [id number] [id number] 0CD:[id number] [facility] Physician Orderon 03-24-2022 Physician Order [id number] 0CD:127 [facility] CNPNon 03-19-2022 CNPN Telephone (OBGY) PRINCESS CANTU ([id number]) 1995 F Date Time Provider Department 03/19/22 [place] DWYER [facility] During your visit today, we recorded the following information about you: Mary Onofre, JANNET 03/19/2022 8:52 AM Signed LMP 02/11, +hpt. [...] Status:Closed by MARY ONOFRE on 03/19/[address] [facility] Office Visit (Neuro-General) on 12-24-2021 [...] or bowel/bladder incontinence. She was taken to [facility] in [place]. She had lab work and a CT [...] DAILY. Vitals Vital Signs Recorded: 24Dec2021 11:32AM Yxxyivafvsr56.1 F Heart Rate54 Yxqomtcl965 Nqzfzpvsq41 Height5 ft 9 in Nvoneu600 lb 1.6 oz BMI Yvbyrrgtwp97.03 kg/m2 BSA Calculated2.11 Tobacco Useb) No Fall Screeninga) No falls within the last year O2 Bodyyybwan770, RA Physical Exam Constitutional: General appearance: no [...] Dec 24 2021 11:37AM EST (Author) Normal [email or web address] Tobacco Screening.on 022 Fall risk assessment a) No falls within the last year MP-Neurolog y-[place] SJW DO Work Phone: Tobacco use status CP b) No M P-Neurolog y[facility] SJW DO Work Phone: Office Visit (Primary [...] Nov 17 2021 1:34PM EST (Author) Normal [email or web address] Tobacco Screening.on 022 Adult depression screening assessment No MP-[facility]amesh n [facility] Phone: Fall risk assessment a) No falls within the last year [facility] [place] Phone: Tobacco use status CPHS b) No M P-[facility]amesh n [facility] Phone: Bact Vag Amplificationon Bact Vag Amplification Positive Criticall y abnormal Negative for bacterial vaginosis 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 Portions of this record were documented by the Anthropology Professor. I, Brendan Blankenship, have reviewed this information as documented for accuracy and performed all elements of history taking, and edited the record as necessary. 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 [...] Order(s):MITCH / TRICHOMONAS AMPLIFICATION [SQCVTV] Order #: [id number] BACTERIAL VAGINOSIS AMPLIFICATION [SQBVAMP] Order #: [id number] GC/CHLAMYDIA DNA DET [SQGCCAMP] Order #: [id number] metroNIDAZOLE (FLAGYL) 500 mg tabletTake 1 tablet [...] Encounter Status:Closed (more content not included)... Normal [facility] Mitch Trich Amplon 022 Mitch glabrata RNA Negative Normal Negative [facility] Comment on above: Performed By: #### G CCT #### [facility] [place] [phone] Mitch sp group RNA Negative Normal Negative [facility] Comment on above: Performed By: #### G CCT #### [facility] [address] [place] [address] Trichomonas RNA Negative Normal [facility] Comment on above: Performed By: #### G CCT #### [facility] [place] [phone] GC/Chlamydia Amplifon 2021 Chlamydia Amplif Negative Normal [facility] Comment on above: Performed By: #### G CCT #### [facility] [place] [phone] GC Amplification Negative Normal [facility] Comment on above: Performed By: #### G CCT #### [facility] [address] [place] [address] GC/Chlam Amp Source Cervix Normal [facility] Comment on above: Performed By: #### G CCT #### [place] [address] [place] [address] Bact Vag Amplificationon Bact Vag Amplification Negative Normal Negat ko for bacterial vaginosis [facility] Comment on above: Performed By: #### C VTV, BVAMP #### [facility] CLIA [id number] [address] [place] [address] OF [facility] CNOVon 07-04-2021 CNOV Office Visit (OBGYCC ) CANTUANNABEL SUMMERSN Alison ([id number]) 1995 F [facility] Date Time Provider Department 07/04/21 4:00 PM [facility] During your visit today, we recorded the following information about you: Pulse Blood pressure Weight Height 74/minute 131/86 95.7 kg 1.727 m Last Period 06/07/21 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 APRN.MEAT BONER 07/04/2021 4:39 PM Signed Princess is a [...] Ectopic0 Multiple0 Live Births0 Comment: Menarche 10 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 LMP: 06/07/2021 (Exact Date), Having periods Age at Menarche: Age at First : Age at Menopause: 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 Some of these tests may be ordered or performed by your primary care doctor. Pap test screening The pap test loo (more content not included)... Normal [facility] Mitch Trich Amplon 021 Mitch glabrata RNA Negative Normal Negative [facility] Comment on above: Performed By: #### C VTV, BVAMP #### [facility] CLIA [id number] [address] [place] [address] [place] Mitch sp group RNA Negative Normal Negative [facility] Comment on above: Performed By: #### C VTV, BVAMP #### [facility] CLIA [id number] [address] [place] [address] [place] Trichomonas RNA Negative Normal [facility] Comment on above: Performed By: #### C VTV, BVAMP #### [facility] CLIA [id number] [address] [place] [address] [place] GC/Chlamydia Amplifon 2020 Chlamydia Amplif Negative Normal [facility] Comment on above: Performed By: #### G CCT #### [place] [phone] GC Amplification Negative Normal [facility] Comment on above: Performed By: #### G CCT #### [place] [phone] GC/Chlam Amp Source Cervix Normal [facility] Comment on above: Performed By: #### G CCT #### [place] [phone] Tobacco Screening.on 021 Fall risk assessment a) No falls within the last year [facility]-Neu[facility] y[facility] W DO Work Phone: Tobacco use status CP b) No M P-Neurolog y[place] SJW DO Work Phone: GC + Chlamydia [...] trachomatis and Neisseria gonorrhoeae testing on specific lih-VQT-lhwqgpcw sample types (female urine samples) have been validated by [facility]. This laboratory is certified by CLIA to perform high complexity testing. Samples from all other sites are not validated for this method. N. gonorrhoeae rRNA HUMERA+probe Ql (Unsp spec) Negative Negative [facility]amesh [facility] [employer] Work Phone: Comment on above: SOURCE: Urine The AP KELSIE Combo 2 assay is FDA-approved for Chlamydia trachomatis and Neisseria gonorrhoeae testing on female endocervical and vaginal swabs, ThinPrep liquid pap samples, male urine samples and urethral swabs. Performance characteristics for Chlamydia trachomatis and Neisseria gonorrhoeae testing on specific hag-EKA-eonqqnlm sample types (female urine samples) have been validated by [facility]. This laboratory is certified by CLIA to perform high complexity testing. Samples from all other sites are not validated for this method. TSHon 12-24-2020 TSH Qn 2.30 m[IU]/L Normal 0.44 - 3.98 [facility] Comment on above: Result Comment: TSH testing is performed using different testing methodology at [facility] than at other [facility]. Direct result comparisons should only be made within the same method. Performed By: #### T SH2 #### [facility] [place] [place] [address] [place] [address] TSH - Thyroid Stimulating Ho rmjean, Serumon 12-24-2020 TSH Qn 2.30 m[IU]/L See Below MPHeavenly FoodsPC-Ramesh n [employer] Work Phone: Comment on above: Reference Range: 0.4 4 - 3.98 TSH testing is performed using different testing methodology at [facility] than at other [facility]. Direct result comparisons should only be made within the same method. Tobacco Screening.on 021 Fall risk assessment a) No falls within the last year MP-Interview[facility]-Ramesh n [employer] Work Phone: Tobacco use status CPHS b) No M P-Interview[facility]-Ramesh n [employer] Work Phone: CBCon 08-14-2020 Erythrocyte distribution width (RBC) [Ratio] 13.2 % Normal 11.5 - 14.5 [facility] Comment on above: Performed By: #### C BC #### [address] [address] Hematocrit (Bld) [Volume fraction] 39.5 % Normal 36.0 - 46.0 [facility] Comment on above: Performed By: #### C BC #### [address] [address] Hemoglobin (Bld) [Mass/Vol] 13.0 g/dL Normal 12.0 - 16.0 [facility] Comment on above: Performed By: #### C BC #### [address] [address] MCHC (RBC) [Mass/Vol] 32.9 g/dL Normal 32.0 - 36.0 [facility] Comment on above: Performed By: #### C BC #### [address] [address] MCV (RBC) [Entitic vol] 91 fL Normal 80 - 100 [facility] Comment on above: Performed By: #### C BC #### [address] [address] NUCLEATED RBC 0.0 /100 WBC Normal 0.0 - 0.0 [facility] Comment on above: Performed By: #### C BC #### [address] [address] Platelets (Bld) [#/Vol] 235 10*3/uL Normal 150 - 450 [facility] Comment on above: Performed By: #### C BC #### [address] [address] RBC 4.33 x10E12/L Normal 4.00 - 5.20 [facility] Comment on above: Performed By: #### C BC #### [address] [address] WBC (Bld) [#/Vol] 5.8 10*3/uL Normal 4.4 - 11.3 [facility] Comment on above: Performed By: #### C BC #### [address] [address] COMPREHENSIVE PANELon 2020 Albumin [Mass/Vol] 4.7 g/dL Normal 3.4 - 5.0 [facility] Comment on above: Performed By: #### C MP #### [address] [address] ALP [Catalytic activity/Vol] 53 U/L Normal 33 - 110 [facility] Comment on above: Performed By: #### C MP #### [address] [address] ALT [Catalytic activity/Vol] 41 U/L Normal 7 - 45 [facility] Comment on above: Result Comment: Desiree ents treated with Sulfasalazine may generate falsely decreased results for ALT. Performed By: #### C MP #### [address] [address] Anion gap [Moles/Vol] 10 mmol/L Normal 10 - 20 [facility] Comment on above: Performed By: #### C MP #### [address] [address] AST [Catalytic activity/Vol] 27 U/L Normal 9 - 39 [facility] Comment on above: Performed By: #### C MP #### [address] [address] Bilirubin [Mass/Vol] 0.6 mg/dL Normal 0.0 - 1.2 [facility] Comment on above: Performed By: #### C MP #### [address] [address] Calcium [Mass/Vol] 9.5 mg/dL Normal 8.6 - 10.3 [facility] Comment on above: Performed By: #### C MP #### [address] [address] Chloride [Moles/Vol] 105 mmol/L Normal 98 - 107 [facility] Comment on above: Performed By: #### C MP #### [address] [address] Creatinine [Mass/Vol] 0.93 mg/dL Normal 0.50 - 1.05 [facility] Comment on above: Performed By: #### C MP #### [address] [address] GFR- AM. >60 Normal >60 [facility] Comment on above: Result Comment: CALC ULATIONS OF ESTIMATED GFR ARE PERFORMED USING THE MDRD STUDY EQUATION FOR THE IDMS-TRACEABLE CREATININE METHODS. CLIN CHEM 2007;53:766-72 Performed By: #### C MP #### [address] [address] GFR-NON AM. >60 Normal >60 [facility] Comment on above: Performed By: #### C MP #### [address] [address] Glucose [Mass/Vol] 94 mg/dL Normal 74 - 99 [facility] Comment on above: Performed By: #### C MP #### [address] [address] HCO3 (Bld) [Moles/Vol] 28 mmol/L Normal 21 - 32 [facility] Comment on above: Performed By: #### C MP #### [address] [address] Potassium [Moles/Vol] 4.4 mmol/L Normal 3.5 - 5.3 [facility] Comment on above: Performed By: #### C MP #### [address] [address] Protein [Mass/Vol] 7.3 g/dL Normal 6.4 - 8.2 [facility] Comment on above: Performed By: #### C MP #### [address] [address] Sodium [Moles/Vol] 139 mmol/L Normal 136 - 145 [facility] Comment on above: Performed By: #### C MP #### [address] [address] Urea nitrogen [Mass/Vol] 13 mg/dL Normal 6 - 23 [facility] Comment on above: Performed By: #### C MP #### [facility] [place] [place] [address] [place] [address] Hematologyon 08-14-2020 Hematocrit (Bld) [Volume fraction] 39.5 % See Below -Neurolog y-[place] SJW DO Work Phone: Comment on above: Reference Range: 36. 0 - 46.0 Hemoglobin (Bld) [Mass/Vol] 13.0 g/dL See Below -Neurolog y-[place] SJW DO Work Phone: Comment on above: Reference Range: 12. 0 - 16.0 MCV (RBC) [Entitic vol] 91 fL 80 - 100 M P-Neurolog -[place] SJW DO Work Phone: Platelets (Bld) [#/Vol] 235 {x10E9/L} 150 - 450 -Neurolog -[place] SJW DO Work Phone: RBC (Bld) [#/Vol] 4.33 {x10E12/L} See Below -Neurolog y-[place] SJW DO Work Phone: Comment on above: Reference Range: 4.0 0 - 5.20 WBC (Bld) [#/Vol] 5.8 {x10E9/L} 4.4 - 11.3 MP-N eurolog y-[place] SJW DO Work Phone: WBC (Bld) [#/Vol] 0.0 {/100_WBC} 0.0 - 0.0 - Neurolog -[place] SJW DO Work Phone: LAMOTRIGINE- LAMICTALon -2 LAMOTRIGINE- LAMICTAL 6.4 ug/mL Normal 2.5 - 15.0 [facility] Comment on above: Performed By: #### L AMOT #### [facility] [address] [place] [address] Lamotrigine Level, Serumon 0 08-14-2020 Lamotrigine [Mass/Vol] 6.4 ug/mL 2.5 - 15.0 MP -Neurolog y-[place] SJW DO Work Phone: Metabolic Panelon 08-14-2020 ALP [Catalytic activity/Vol] 53 U/L 33 - 110 MP-Neurolog y-[place] SJW DO Work Phone: Anion gap [Moles/Vol] 10 mmol/L 10 - 20 MP- Neurolog y-[place] SJW DO Work Phone: Bilirubin [Mass/Vol] 0.6 mg/dL 0.0 - 1.2 MP-N eurolog y-[place] SJW DO Work Phone: Calcium [Mass/Vol] 9.5 mg/dL 8.6 - 10.3 MP-Jozef rolog y-[place] SJW DO Work Phone: Chloride [Moles/Vol] 105 mmol/L 98 - 107 MP-N eurolog y-[place] SJW DO Work Phone: CO2 [Moles/Vol] 28 mmol/L 21 - 32 MP-Neurol og y-[place] SJW DO Work Phone: Creatinine [Mass/Vol] 0.93 mg/dL See Below MP- Neurolog y-[place] SJW DO Work Phone: Comment on above: Reference Range: 0.5 0 - 1.05 Glucose [Mass/Vol] 94 mg/dL 74 - 99 MP-Jozef rolog y-[place] SJW DO Work Phone: Potassium [Moles/Vol] 4.4 mmol/L 3.5 - 5.3 MP- Neurolog y-[place] SJW DO Work Phone: Protein [Mass/Vol] 7.3 g/dL 6.4 - 8.2 MP-Jozef rolog y-[place] SJW DO Work Phone: Sodium [Moles/Vol] 139 mmol/L 136 - 145 MP-Jozef rolog y-[place] SJW DO Work Phone: Urea nitrogen [Mass/Vol] 13 mg/dL 6 - 23 -[facility] DO Work Phone: Otheron 08-14-2020 Albumin BCP dye [Mass/Vol] 4.7 g/dL 3.4 - 5.0 [facility] DO Work Phone: ALT With P-5'-P [Catalytic activity/Vol] 41 U/L 7 - 45 -[facility] DO Work Phone: Comment on above: Patients treated wit h Sulfasalazine may generate falsely decreased results for ALT. AST With P-5'-P [Catalytic activity/Vol] 27 U/L 9 - 39 [facility] DO Work Phone: Erythrocyte distribution width (RBC) [Ratio] 13.2 % See Below [facility] DO Work Phone: Comment on above: Reference Range: 11. 5 - 14.5 MCHC (RBC) [Mass/Vol] 32.9 g/dL See Below - [facility] DO Work Phone: Comment on above: Reference Range: 32. 0 - 36.0 >60 >60 [facility] DO Work Phone: Comment on above: CALCULATIONS OF MICHAEL MATED GFR ARE PERFORMED USING THE MDRD STUDY EQUATION FOR THE IDMS-TRACEABLE CREATININE METHODS. CLIN CHEM 2007;53:766-72 MRI BRAIN W WO CONTRASTon There are no acute intracranial changes, no evidence of ischemia or hemorrhage. There are no regions of signal abnormality. There are no areas of abnormal enhancement after contrast administration. [facility], [place] EXAMINATION: MRI BRA IN W WO CONTRAST [...] The calvarium and soft tissues are unremarkable. [facility] [place], [place], [place] Incoming Radiant Results From [employer] - 05/09/2020 3:02 PM EDT EXAMINATION: [...] areas of abnormal enhancement after contrast administration. [facility], [place] MRI BRAIN W WO CONTRAST EXAMINATION: MRI [...] David Winter MD 05/09/20 Final result Normal [facility] CBC With Platelet and Differ entialon 04-19-2020 Basophils (Bld) [#/Vol] 0.1 10*3/uL Normal 0.0-0.2 [facility] Comment on above: Performed By: #### C BCWD #### [facility] [address] [place] [address] Basophils/100 WBC (Bld) 0.4 % Normal [facility] Comment on above: Performed By: #### C BCWD #### [facility] [address] [place] [address] Eosinophils (Bld) [#/Vol] 0.5 10*3/uL Normal 0.0-0.7 [facility] Comment on above: Performed By: #### C BCWD #### [facility] [address] [place] [address] Eosinophils/100 WBC (Bld) 4.2 % Normal [facility] Comment on above: Performed By: #### C BCWD #### [facility] [address] [place] [address] Erythrocyte distribution width (RBC) [Ratio] 12.5 % Normal 11.5-14.5 [facility] Comment on above: Performed By: #### C BCWD #### [facility] [address] [place] [address] Hematocrit (Bld) [Volume fraction] 39.4 % Normal 37.0-47.0 [facility] Comment on above: Performed By: #### C BCWD #### [facility] [address] [place] [address] Hemoglobin (Bld) [Mass/Vol] 13.3 g/dL Normal 12.0-16.0 [facility] Comment on above: Performed By: #### C BCWD #### [facility] [address] [place] [address] Lymphocytes (Bld) [#/Vol] 3.2 10*3/uL Normal 1.0-4.8 [facility] Comment on above: Performed By: #### C BCWD #### [facility] [address] [place] [address] Lymphocytes/100 WBC (Bld) 26.9 % Normal [facility] Comment on above: Performed By: #### C BCWD #### [facility] [address] [place] [address] MCH (RBC) [Entitic mass] 29.8 pg Normal 27.0-31.3 [facility] Comment on above: Performed By: #### C BCWD #### [facility] [address] [place] [address] MCHC (RBC) [Mass/Vol] 33.8 % Normal 33.0-37.0 [facility] Comment on above: Performed By: #### C BCWD #### [facility] [address] [place] [address] MCV (RBC) [Entitic vol] 88.4 fL Normal 82.0-100.0 [facility] [facility] Comment on above: Performed By: #### C BCWD #### [facility] [address] [place] [address] Monocytes (Bld) [#/Vol] 0.8 10*3/uL Normal 0.2-0.8 [facility] Comment on above: Performed By: #### C BCWD #### [facility] [address] [place] [address] Monocytes/100 WBC (Bld) 6.8 % Normal [facility] Comment on above: Performed By: #### C BCWD #### [facility] [address] [place] [address] Neutrophils (Bld) [#/Vol] 7.3 10*3/uL Critically high 1.4-6.5 [facility] Comment on above: Performed By: #### C BCWD #### [facility] [address] [place] [address] Neutrophils/100 WBC (Bld) 61.7 % Normal [facility] Comment on above: Performed By: #### C BCWD #### [facility] [address] [place] [address] Platelets (Bld) [#/Vol] 314 10*3/uL Normal 130-400 [facility] Comment on above: Performed By: #### C BCWD #### [facility] [address] [place] [address] RBC (Bld) [#/Vol] 4.45 10*6/uL Normal 4.20-5.40 [facility] Comment on above: Performed By: #### C BCWD #### [facility] [address] [place] [address] WBC (Bld) [#/Vol] 11.9 10*3/uL Critically high 4.8-10.8 [facility] Comment on above: Performed By: #### C BCWD #### [facility] [address] [place] [address] CT HEAD WO CONTRASTon 2019 CT HEAD [...] De Jesus DO 04/19/20 Final result Normal [facility] Comprehensive Metabolic Pane crescencio 04-19-2020 Albumin [Mass/Vol] 4.9 g/dL Critically high 3.5-4.6 M [facility] Comment on above: Performed By: #### C MP #### [facility] [address] [place] [address] ALP [Catalytic activity/Vol] 40 U/L Normal 40-130 [facility] Comment on above: Performed By: #### C MP #### [facility] [address] [place] [address] ALT [Catalytic activity/Vol] 17 U/L Normal 0-33 [facility] Comment on above: Performed By: #### C MP #### [facility] [address] [place] [address] Anion gap [Moles/Vol] 14 mmol/L Normal 9-15 [facility] Comment on above: Performed By: #### C MP #### [facility] [address] [place] [address] AST [Catalytic activity/Vol] 17 U/L Normal 0-35 [facility] Comment on above: Performed By: #### C MP #### [facility] [address] [place] [address] Bilirubin [Mass/Vol] mg/dL Normal 0.2-0.[address] [facility] Comment on above: Performed By: #### C MP #### [facility] [address] [place] [address] Calcium [Mass/Vol] 10.0 mg/dL Critically high 8.5-9.9 [facility] Comment on above: Performed By: #### C MP #### [facility] [address] [place] [address] Chloride [Moles/Vol] 101 mmol/L Normal 95-[address] [facility] Comment on above: Performed By: #### C MP #### [facility] [address] [place] [address] CO2 [Moles/Vol] 24 mmol/L Normal 20-31 [facility] Comment on above: Performed By: #### C MP #### [facility] [address] [place] [address] Creatinine [Mass/Vol] 0.87 mg/dL Normal 0.50-0.90 [facility] Comment on above: Performed By: #### C MP #### [facility] [address] [place] [address] GFR/1.73 sq M predicted among blacks MDRD (S/P/Bld) [Vol rate/Area] mL/min/{1.73_m2} Normal >60 [facility] Comment on above: Result Comment: >60 mL/min/1.73m2 EGFR, calc. for ages 18 and older using the MDRD formula (not corrected for weight), is valid for stable renal function. Performed By: #### C MP #### [facility] [address] [place] [address] GFR/1.73 sq M.predicted MDRD (S/P/Bld) [Vol rate/Area] mL/min/{1.73_m2} Normal >60 [facility] Comment on above: Result Comment: >60 mL/min/1.73m2 EGFR, calc. for ages 18 and older using the MDRD formula (not corrected for weight), is valid for stable renal function. Performed By: #### C MP #### [facility] [address] [place] [address] Globulin (S) [Mass/Vol] 3.1 g/dL Normal 2.3-3.5 [facility] Comment on above: Performed By: #### C MP #### [facility] [address] [place] [address] Glucose [Mass/Vol] 94 mg/dL Normal 70-99 [facility] Comment on above: Performed By: #### C MP #### [facility] [address] [place] [address] Potassium [Moles/Vol] 3.9 mmol/L Normal 3.4-4.9 [facility] Comment on above: Performed By: #### C MP #### [facility] [address] [place] [address] Protein [Mass/Vol] 8.0 g/dL Normal 6.3-8.0 [facility] Comment on above: Performed By: #### C MP #### [facility] [address] [place] [address] Sodium [Moles/Vol] 139 mmol/L Normal 135-144 [facility] Comment on above: Performed By: #### C MP #### [facility] [address] [place] [address] Urea nitrogen [Mass/Vol] 12 mg/dL Normal 6-20 [facility] Comment on above: Performed By: #### C MP #### [facility] [address] [place] [address] Lactic Acidon 04-19-2020 Lactate [Moles/Vol] 1.8 mmol/L Normal 0.5-2.2 [facility] Comment on above: Performed By: #### L ACID #### [facility] [address] [place] [address] Prolactinon 04-19-2020 Prolactin 160.8 ng/mL Normal [facility] Comment on above: Result Comment: Defa ult Normal Ranges Female Male Non: 4.8-23.3 4.0-15.2 Performed By: #### P JAISON #### [facility] [address] [place] [address] Serum HCG Qualitativeon HCG.beta subunit Qn Negative Normal [facility] Comment on above: Performed By: #### S HCG #### [facility] [address] [place] [address] Urinalysis, reflex to cultur emily 04-19-2020 Urine Reflexed to Culture Not Indicated Normal [facility] Comment on above: Performed By: #### U AR #### [facility] [address] [place] [address] Bilirubin Ql (U) Negative Normal Negative [facility] Comment on above: Performed By: #### U AR #### [facility] [address] [address] Clarity (U) Clear Normal Clear [facility] Comment on above: Performed By: #### U AR #### [facility] [address] [place] [address] Color (U) Yellow Normal Straw/Morgan [facility] Comment on above: Performed By: #### U AR #### [facility] [address] [place] [address] Glucose Ql (U) Negative Normal Negative [facility] Comment on above: Performed By: #### U AR #### [facility] [address] [place] [address] Hemoglobin Ql (U) Trace-intact Normal Negative [facility] Comment on above: Performed By: #### U AR #### [facility] [address] [place] [address] Ketones Ql (U) Negative Normal Negative [facility] Comment on above: Performed By: #### U AR #### [facility] [address] [place] [address] Leukocyte esterase Test strip Ql (U) Negative Normal Negative [facility] Comment on above: Performed By: #### U AR #### [facility] [address] [place] [address] Nitrite Ql (U) Negative Normal Negative [facility] Comment on above: Performed By: #### U AR #### [facility] [address] [place] [address] pH (U) 6.0 [pH] Normal 5.0-9.0 [facility] Comment on above: Performed By: #### U AR #### [facility] [address] [place] [address] Protein Ql (U) Negative Normal Negative [facility] Comment on above: Performed By: #### U AR #### [facility] [address] [place] [address] Specific gravity (U) [Rel density] 1.020 Normal 1.005-1.03 [facility] Comment on above: Performed By: #### U AR #### [facility] [address] [place] [address] Urobilinogen Qn (U) 0.2 {Alan'U}/dL Normal < 2.0 [facility] Comment on above: Performed By: #### U AR #### [facility] [address] [place] [address] Urine Microscopicon 04-19-20 20 Epithelial cells LM Ql (Urine sed) 0-2 Normal [facility] Comment on above: Performed By: #### U ARELY #### [facility] [address] [place] [address] RBC (U) [#/Vol] 0-2 Normal 0-2 [facility] Comment on above: Performed By: #### U ARELY #### [facility] [address] [place] [address] WBC (U) [#/Vol] 0-2 Normal 0-5 [facility] Comment on above: Performed By: #### U ARELY #### [facility] [address] [place] [address] CBC Auto Differentialon Basophils (Bld) [#/Vol] 0.1 10*3/uL 0 - 0.2 K/u L [place] Basophils/100 WBC (Bld) 0.4 % [place] Eosinophils (Bld) [#/Vol] 0.5 10*3/uL 0 - 0.7 K/uL [place] Eosinophils/100 WBC (Bld) 4.2 % [place] Erythrocyte distribution width (RBC) [Ratio] 12.5 % 11.5 - 14.5 % [place] Hematocrit (Bld) [Volume fraction] 39.4 % 37 - 47 % [place] Hemoglobin (Bld) [Mass/Vol] 13.3 g/dL 12 - 16 g/dL [place] Interpretation and review of laboratory results Abnormal [place] Lymphocytes (Bld) [#/Vol] 3.2 10*3/uL 1 - 4.8 K/uL [place] Lymphocytes/100 WBC (Bld) 26.9 % [place] MCH (RBC) [Entitic mass] 29.8 pg 27 - 31.3 pg [place] MCHC (RBC) [Mass/Vol] 33.8 % 33 - 37 % [place] MCV (RBC) [Entitic vol] 88.4 fL 82 - 100 fL [place] Monocytes (Bld) [#/Vol] 0.8 10*3/uL 0.2 - 0.8 K /uL [place] Monocytes/100 WBC (Bld) 6.8 % [place] Neutrophils Absolute 7.3 K/uL High 1.4 - 6.5 K/uL [place] Neutrophils/100 WBC (Bld) 61.7 % [place] Platelets (Bld) [#/Vol] 314 10*3/uL 130 - 400 K /uL [place] RBC (Bld) [#/Vol] 4.45 10*6/uL [place] WBC (Bld) [#/Vol] 11.9 10*3/uL High 4.8 - 10.8 K/uL [place] Comprehensive Metabolic Pane crescencio 04-18-2020 Albumin [Mass/Vol] 4.9 g/dL High 3.5 - 4.6 g/dL [place] ALP [Catalytic activity/Vol] 40 U/L 40 - 130 U/L [place] ALT [Catalytic activity/Vol] 17 U/L 0 - 33 U/L [place] Anion gap [Moles/Vol] 14 mmol/L [place] AST [Catalytic activity/Vol] 17 U/L 0 - 35 U/L [place] Bilirubin Ql (U) <0.2 0.2 - 0.7 mg/dL [place] Calcium [Mass/Vol] 10.0 mg/dL High 8.5 - 9.9 mg/dL [place] Chloride [Moles/Vol] 101 mmol/L [place] CO2 [Moles/Vol] 24 mmol/L [place] Creatinine [Mass/Vol] 0.87 mg/dL 0.5 - 0.9 mg/dL [place] GFR >60.0 >60 [place] Comment on above: >60 mL/min/1.73m2 EG FR, calc. for ages 18 and older using the MDRD formula (not corrected for weight), is valid for stable renal function. GFR Non- >60.0 >60 [place] Comment on above: >60 mL/min/1.73m2 EG FR, calc. for ages 18 and older using the MDRD formula (not corrected for weight), is valid for stable renal function. Globulin (S) [Mass/Vol] 3.1 g/dL 2.3 - 3.5 g/ dL [place] Glucose [Mass/Vol] 94 mg/dL 70 - 99 mg/dL [place] Interpretation and review of laboratory results Abnormal [place] Potassium [Moles/Vol] 3.9 mmol/L [place] Protein [Mass/Vol] 8.0 g/dL 6.3 - 8 g/dL [place] Sodium [Moles/Vol] 139 mmol/L [place] Urea nitrogen [Mass/Vol] 12 mg/dL 6 - 20 mg/dL [place] HCG Qualitative, Serumon hCG Qual Negative [place] Lactic Acid, Plasmaon 2019 Lactate [Moles/Vol] 1.8 mmol/L 0.5 - 2. 2 mmol/L [place] Microscopic Urinalysison Epithelial Cells, UA 0-2 /HPF [place] RBC (U) [#/Vol] 0-2 [place] WBC, UA 0-2 [place] Urine Reflex to Cultureon Bilirubin Urine Negative Negative [place] Blood, Urine Trace-intact Negative [place] Clarity, UA Clear Clear [place] Color, UA Yellow Straw/Yellow [place] Glucose, Ur Negative Negative mg/dL [place] Ketones Ql (U) Negative Negative mg/dL [place] Leukocyte esterase Test strip Ql (U) Negative Negative [place] Nitrite, Urine Negative Negative [place] pH, UA 6.0 [place] Protein (U) [Mass/Vol] Negative Negative mg/d L [facility] Specific [place], UA 1.020 [facility] [place] Urine Reflex to Culture Not Indicated [facility], [place] Urobilinogen, Urine 0.2 <2.0 E.U./dL [facility] [place] ECHOCARDIOGRAPHY REPORT () on 05-10-2017 ECHOCARDIOGRAPHY REPORT () PRINCESS CANTU [id number] VASCULAR LABReferring: Koffi Uriarte A.Reading: CURTIS GARCIA [...] 4 CH 16.1 cm2LA Volume Indexed 21.05 ml/s5Oqjypeztd/Systoli c FunctionMV E-wave Vmax 0.884 m/secMV deceleration time 193 msecMV A-wave Vmax 0.494 m/secLV septal e' Vmax 0.115 m/secLV lateral e' Vmax 0.189 m/secLV E:e' septal ratio 7.7 ratio [facility] PRINCESS CANTU [id number] [place] [address] [id number] 93Jackie Uriarte MDECHOCARDIOGRAPHY REPORTLV E:e' lateral ratio [...] structure. There is no evidence ofpulmonic regurgitation. [facility] PRINCESS CANTU [id number] [place] [address] [id number] 93Jackie Uriarte MDECHOCARDIOGRAPHY REPORTPericardium:Ther e is no [...] [facility] PRINCESS CANTU [id number] [place] [address] [id number] 93Jackie Uriarte MDECHOCARDIOGRAPHY REPORT Normal [facility] BASIC METABOLIC PANELon 10- Anion gap 10 mmol/L Normal 6-18 [facility] Comment on above: Order Comment: Is pa tient fasting? YES Performed By: #### L BMP, LGFRP ####[facility] [address]te[address] [place] [address] Calcium 9.6 mg/dL Normal 8.6-10.3 [facility] Comment on above: Order Comment: Is pa tient fasting? YES Performed By: #### L BMP, LGFRP ####[facility] [address]afxw28[address] [place] [address] Chloride 101 mmol/L Normal 98-107 [facility] Comment on above: Order Comment: Is pa tient fasting? YES Performed By: #### L BMP, LGFRP ####[facility] Joltelflou03348 [place] [address] CO2 27 mmol/L Normal 21-32 [facility] Comment on above: Order Comment: Is pa tient fasting? YES Performed By: #### L BMP, LGFRP ####[facility] Gcdpevybts26974 [place] [address] Creatinine 0.74 mg/dL Normal 0.5-1.05 [facility] Comment on above: Order Comment: Is pa tient fasting? YES Performed By: #### L BMP, LGFRP ####[facility] [address]daynh84[address] [place] [address] Glucose mass conc 82 mg/dL Normal 74-99 [facility] Comment on above: Order Comment: Is pa tient fasting? YES Performed By: #### L BMP, LGFRP ####[facility] Gnusbglyjv76060 [place] [address] Potassium molar conc 4.1 mmol/L Normal 3.5-5.3 [facility] Comment on above: Order Comment: Is pa tient fasting? YES Performed By: #### L BMP, LGFRP ####[facility] Znb[address]shctvb88794 [place] [address] Sodium 134 mmol/L Low 136-145 [facility] Comment on above: Order Comment: Is pa tient fasting? YES Performed By: #### L BMP, LGFRP ####[facility] Gusqiadiwh80665 [place] [address] Urea nitrogen 14 mg/dL Normal 6-23 [facility] Comment on above: Order Comment: Is pa tient fasting? YES Performed By: #### L BMP, LGFRP ####[facility] Bvbfvlsonc88208 [place] [address] CBC AUTOon 05-04-2017 Erythrocyte distribution width Auto Ratio (RBC) 12.8 % Normal 11.5-14.5 [facility] Comment on above: Performed By: #### L CBC ####[facility] Gruirncgzp89482 [place] [address] Erythrocytes (RBC) 4.65 10*6/uL Normal 3.5-5.5 [facility] Comment on above: Performed By: #### L CBC ####[facility] Ohhjgdpfei57512 [place] [address] Hematocrit (HCT) 41.1 % Normal 36.0-48.0 [facility] Comment on above: Performed By: #### L CBC ####[facility] Pahijsybdi[address]23 [place] [address] Hemoglobin mass conc (Bld) 13.8 g/dL Normal 12.0-15.0 [facility] Comment on above: Performed By: #### L CBC ####[facility] Ypbrvucfbh56426 [place] [address] MCH 29.7 pg Normal 25.4-34.6 [facility] Comment on above: Performed By: #### L CBC ####[facility] Xxonkkxxnd92902 [place] [address] MCHC mass conc (RBC) 33.6 g/dL Normal 30.0-36.0 [facility] Comment on above: Performed By: #### L CBC ####[facility] [address] [place] [address] MCV 88.4 fL Normal 79.0-98.0 [facility] Comment on above: Performed By: #### L CBC ####[facility] [address] [place] [address] Platelet mean volume (PMV) 9.3 fL Normal 8.4-11.9 [facility] Comment on above: Performed By: #### L CBC ####[facility] [address] [place] [address] Platelets 277 10*3/uL Normal 140-440 [facility] Comment on above: Performed By: #### L CBC ####[facility] [address] [place] [address] WBC (Leukocytes) 6.1 10*3/uL Normal 3.9-11.0 [facility] Comment on above: Performed By: #### L CBC ####[facility] [address] [place] [address] GLOMERULAR FILTRATION RATE E STon 05-04-2017 eGFR (non-black) mL/min/{1.73_m2} Normal > 60 [facility] Comment on above: Order Comment: Is pa tient fasting? YES Performed By: #### L BMP, LGFRP ####[facility] [address] [place] [address] IF AMER > 90 Normal > 60 [facility] Comment on above: Order Comment: Is pa tient fasting? YES Result Comment: Effe ctive 12/12/14:CKD-EPI equation / based on IDMS traceable creatinine.Continue to use the CREAT CLR-DOSE ([place]-Gault)value for determining medication dose. Performed By: #### L BMP, LGFRP ####[facility] [id number] [place] [id number] Vital Signs Date Time Vital Sign Value Performing Clinician Odettei lity 07-31-2022 10:54-0500 Body height 175.26 cm Koffi Clementeson Work Phone: [employer] Work Phone: 07-31-2022 10:54-0500 Body mass index (BMI) [Ratio] 31.01 kg/m2 Koffi Clementeson Work Phone: [employer] Work Phone: 07-31-2022 10:54-0500 Body surface area Derived from formula 2.11 m2 Koffi Clementeson Work Phone: [employer] Work Phone: 07-31-2022 10:54-0500 Body temperature 97.6 [degF] Koffi Clementeson Work Phone: [employer] Work Phone: 07-31-2022 10:54-0500 Body weight 95.26 kg Koffi Clementeson Work Phone: [employer] Work Phone: 07-31-2022 10:54-0500 Diastolic blood pressure 87 mm[Hg] Koffi Clementeson Work Phone: [employer] Work Phone: 07-31-2022 10:54-0500 Heart rate 76 /min Koffi Uriarte Work Phone: [employer] Work Phone: 07-31-2022 10:54-0500 Respiratory rate 18 /min Koffi Uriarte Work Phone: [facility] Work Phone: 07-31-2022 10:54-0500 Systolic blood pressure 121 mm[Hg] Koffi Uriarte Work Phone: [facility] Work Phone: 12-24-2021 11:32-0400 Body height 175.26 cm Koffi Uriarte Work Phone: [facility] DO Work Phone: 12-24-2021 11:32-0400 Body mass index (BMI) [Ratio] 31.03 kg/m2 Koffi Uriarte Work Phone: [facility] DO Work Phone: 12-24-2021 11:32-0400 Body surface area Derived from formula 2.11 m2 Koffi Uriarte Work Phone: [facility] DO Work Phone: 12-24-2021 11:32-0400 Body temperature 97.1 [degF] Koffi Uriarte Work Phone: [facility] DO Work Phone: 12-24-2021 11:32-0400 Body weight 95.3 kg Koffi Uriarte Work Phone: [facility] DO Work Phone: 12-24-2021 11:32-0400 Diastolic blood pressure 76 mm[Hg] Kofif Uriarte Work Phone: [facility] DO Work Phone: 12-24-2021 11:32-0400 Heart rate 54 /min Koffi Uriarte Work Phone: [facility] DO Work Phone: 12-24-2021 11:32-0400 SaO2% (BldA) [Mass fraction] 100 % Koffi Uriarte Work Phone: [facility] DO Work Phone: 12-24-2021 11:32-0400 Systolic blood pressure 114 mm[Hg] Koffi Uriarte Work Phone: [facility] DO Work Phone: 11-17-2021 13:08-0400 Body height 172.72 cm Koffi Uriarte Work Phone: [employer] Work Phone: 11-17-2021 13:08-0400 Body mass index (BMI) [Ratio] 32.39 kg/m2 Koffi Uriarte Work Phone: [facility]HHWJ[facility] Work Phone: 11-17-2021 13:08-0400 Body surface area Derived from formula 2.1 m2 Koffi Uriarte Work Phone: [employer] Work Phone: 11-17-2021 13:08-0400 Body temperature 97 [degF] Koffi Uriarte Work Phone: EL-RBNG-Mrxj [place] Work Phone: 11-17-2021 13:08-0400 Body weight 96.62 kg Koffi Uriarte Work Phone: VO-WPPO-[place]ma [place] Work Phone: 11-17-2021 13:08-0400 Diastolic blood pressure 84 mm[Hg] Koffi Uriarte Work Phone: YX-AYWH-[place]uf [place] Work Phone: 11-17-2021 13:08-0400 Heart rate 70 /min Koffi Uriarte Work Phone: YW-MBRD-Ojim [place] Work Phone: 11-17-2021 13:08-0400 Respiratory rate 18 /min Koffi Uriarte Work Phone: KK-SYFD-Uqis [place] Work Phone: 11-17-2021 13:08-0400 SaO2% (BldA) [Mass fraction] 96 % Koffi Uriarte Work Phone: LJ-JLIS-Bsfb [place] Work Phone: 11-17-2021 13:08-0400 Systolic blood pressure 126 mm[Hg] Koffi Uriarte Work Phone: KB-GUKU-Dnqh [place] Work Phone: 06-25-2021 10:54-0500 Body height 172.72 cm Koffi Uriarte Work Phone: [facility] Work Phone: 06-25-2021 10:54-0500 Body mass index (BMI) [Ratio] 32.08 kg/m2 Koffi Uriarte Work Phone: [facility] DO Work Phone: 06-25-2021 10:54-0500 Body surface area Derived from formula 2.09 m2 Koffi Uriarte Work Phone: MR-Icsdctsju-[place] SJW DO Work Phone: 06-25-2021 10:54-0500 Body temperature 97.1 [degF] Koffi Uriarte Work Phone: [facility] DO Work Phone: 06-25-2021 10:54-0500 Body weight 95.71 kg Koffi Uriarte Work Phone: EN-Lzqrusngi-[place]yp [place] SJW DO Work Phone: 06-25-2021 10:54-0500 Diastolic blood pressure 62 mm[Hg] Koffi Uriarte Work Phone: [facility] DO Work Phone: 06-25-2021 10:54-0500 Heart rate 67 /min Koffi Uriarte Work Phone: [facility] DO Work Phone: 06-25-2021 10:54-0500 Respiratory rate 18 /min Koffi Uriarte Work Phone: [facility] DO Work Phone: 06-25-2021 10:54-0500 SaO2% (BldA) [Mass fraction] 99 % Koffi Uriarte Work Phone: [facility] DO Work Phone: 06-25-2021 10:54-0500 Systolic blood pressure 131 mm[Hg] Koffi Uriarte Work Phone: [facility] DO Work Phone: 05-20-2021 15:59-0400 Body height 172.72 cm Koffi Uriarte Work Phone: DC-AHEB-[place] Work Phone: 05-20-2021 15:59-0400 Body mass index (BMI) [Ratio] 31.93 kg/m2 Koffi Uriarte Work Phone: WQ-NYWZ-Xjsc [place] Work Phone: 05-20-2021 15:59-0400 Body surface area Derived from formula 2.09 m2 Koffi Uriarte Work Phone: AX-CWGM-Bibr [place] Work Phone: 05-20-2021 15:59-0400 Body temperature 98.1 [degF] Koffi Uriarte Work Phone: PI-ENSH-Ldov [place] Work Phone: 05-20-2021 15:59-0400 Body weight 95.26 kg Koffi Uriarte Work Phone: WJ-XVKO-Pysk [place] Work Phone: 05-20-2021 15:59-0400 Diastolic blood pressure 82 mm[Hg] Koffi Uriarte Work Phone: LA-PECV-Lmdb [place] Work Phone: 05-20-2021 15:59-0400 Heart rate 72 /min Koffi Uriarte Work Phone: TP-CUJB-Lsim [place] Work Phone: 05-20-2021 15:59-0400 Respiratory rate 16 /min Koffi Uriarte Work Phone: BS-NYWH-Zklm [place] Work Phone: 05-20-2021 15:59-0400 Systolic blood pressure 122 mm[Hg] Koffi Uriarte Work Phone: OK-OTLW-Dlkr [place] Work Phone: 12-24-2020 14:45-0400 Body height 172.72 cm Koffi Uriarte Work Phone: VN-TKZP-Ggvs [place] Work Phone: 12-24-2020 14:45-0400 Body mass index (BMI) [Ratio] 30.71 kg/m2 Koffi Uriarte Work Phone: YE-YDVW-Ijbj [place] Work Phone: 12-24-2020 14:45-0400 Body surface area Derived from formula 2.05 m2 Koffi Uriarte Work Phone: ZP-DNAU-[place] Work Phone: 12-24-2020 14:45-0400 Body temperature 97.8 [degF] Koffi Uriarte Work Phone: TG-TJLM-Cdce [place] Work Phone: 12-24-2020 14:45-0400 Body weight 91.63 kg Koffi Uriarte Work Phone: MD-QGCO-Ihvd [place] Work Phone: 12-24-2020 12:59-0400 Body height 172.72 cm Koffi Uriarte Work Phone: AF-LWAQ-Bwnx [place] Work Phone: 12-24-2020 12:59-0400 Body mass index (BMI) [Ratio] 30.71 kg/m2 Koffi Uriarte Work Phone: GK-GKDD-Tbun [place] Work Phone: 12-24-2020 12:59-0400 Body surface area Derived from formula 2.05 m2 Koffi Uriarte Work Phone: OV-ZKNY-Enyt [place] Work Phone: 12-24-2020 12:59-0400 Body temperature 98.2 [degF] Koffi Uriarte Work Phone: BD-HUXP-Fumf [place] Work Phone: 12-24-2020 12:59-0400 Body weight 91.63 kg Koffi Uriarte Work Phone: PB-ROVX-Uoue [place] Work Phone: 12-24-2020 12:59-0400 Diastolic blood pressure 90 mm[Hg] Koffi Uriarte Work Phone: BL-JQDV-Jfro [place] Work Phone: 12-24-2020 12:59-0400 Heart rate 75 /min Koffi Uriarte Work Phone: DN-XYLJ-Ecvs [place] Work Phone: 12-24-2020 12:59-0400 Respiratory rate 16 /min Koffi Uriarte Work Phone: [facility] Work Phone: 12-24-2020 12:59-0400 Systolic blood pressure 147 mm[Hg] Koffi Uriarte Work Phone: [facility] Work Phone: 08-14-2020 13:26-0500 BMI (Body Mass Index) 29.04 kg/m2 Koffi Uriarte MW-Qbyjtotiz-Rjxo [place] SJW DO Work Phone: 08-14-2020 13:26-0500 Body Temperature 97.5 [degF] Koffi Uriarte [facility] DO Work Phone: 08-14-2020 13:26-0500 Body weight 86.64 kg Koffi Uriarte [facility] DO Work Phone: 08-14-2020 13:26-0500 BP Diastolic 100 mm[Hg] Koffi Uriarte [facility] DO Work Phone: 08-14-2020 13:26-0500 BP Systolic 150 mm[Hg] Koffi Uriarte [facility] DO Work Phone: 08-14-2020 13:26-0500 BSA (Body Surface Area) 2 m2 Koffi Uriarte [facility] DO Work Phone: 08-14-2020 13:26-0500 Height 172.72 cm Koffi Uriarte [facility] DO Work Phone: 05-28-2020 15:24-0500 BMI (Body Mass Index) 28.59 kg/m2 Koffi Uriarte [facility] Work Phone: 05-28-2020 15:24-0500 Body Temperature 97.6 [degF] Koffi Uriarte [facility] Work Phone: 05-28-2020 15:24-0500 Body weight 85.28 kg Koffi Ruby Work Phone: 05-28-2020 15:24-0500 BP Diastolic 82 mm[Hg] Koffi Uriarte MP-WSPC-Jennifer Ruby Work Phone: 05-28-2020 15:24-0500 BP Systolic 122 mm[Hg] Koffi Ruby Work Phone: 05-28-2020 15:24-0500 BSA (Body Surface Area) 1.99 m2 Koffi RAGLAND-Jennifer Ruby Work Phone: 05-28-2020 15:24-0500 Height 172.72 cm Koffi Ruby Work Phone: 05-28-2020 15:24-0500 Pulse (Heart Rate) 70 /min Koffi RAGLAND-Taylor Work Phone: 05-28-2020 15:24-0500 Respiratory Rate 18 /min Koffi RAGLAND-Jennifer Ruby Work Phone: 04-25-2020 16:01-0400 BMI (Body Mass Index) 28.59 kg/m2 Koffi RAGLAND -Jennifer Ruby Work Phone: 04-25-2020 16:01-0400 Body Temperature 98.6 [degF] Koffi Ruby Work Phone: 04-25-2020 16:01-0400 Body weight 85.28 kg Koffi Ruby Work Phone: 04-25-2020 16:01-0400 BP Diastolic 101 mm[Hg] Koffi RAGLAND-Jennifer Ruby Work Phone: 04-25-2020 16:01-0400 BP Systolic 154 mm[Hg] Koffi Mcdonald [place] Work Phone: 04-25-2020 16:01-0400 BSA (Body Surface Area) 1.99 m2 Koffi Ruby Work Phone: 04-25-2020 16:01-0400 Height 172.72 cm Koffi Ruby Work Phone: 04-25-2020 16:01-0400 Pulse (Heart Rate) 76 /min Koffi RAGLAND-Taylor Work Phone: 04-25-2020 16:01-0400 Respiratory Rate 16 /min Koffi Ruby Work Phone: 04-19-2020 00:00-0400 BP Diastolic 83 mm[Hg] [facility] 04-19-2020 00:00-0400 BP Systolic 144 mm[Hg] [facility] 04-18-2020 22:17-0400 BMI (Body Mass Index) 28.06 kg/m2 [facility], [place] 04-18-2020 22:17-0400 Body Temperature 98.91 [degF] [facility], [place] 04-18-2020 22:17-0400 Body weight 86.[address] [facility], [place] 04-18-2020 22:17-0400 Height 175.3 cm [place], [place] 04-18-2020 22:17-0400 Pulse (Heart Rate) 105 /min [facility], [place] 04-18-2020 22:17-0400 Pulse Oximetry 97 % [facility], [place] 04-18-2020 22:17-0400 Respiratory Rate 16 /min Tu Raad Mercchristina [facility], [place] Encounters Encounter Date Encounter Type Care Provider Facility Start: 08-11-2023 End: 08-11-2023 ambulatory SHIMA RODAS Not Available Start: 08-04-2023 End: 08-04-2023 ambulatory Willis Chen Facility:[facility] Start: 07-28-2023 End: 07-28-2023 ambulatory WILLIS CHEN Not Available Start: 07-14-2023 End: 07-14-2023 ambulatory SHIMA RODAS Not Available Start: 06-30-2023 End: 07-01-2023 ambulatory SHIMA RODAS Not Available Start: 06-16-2023 End: 06-16-2023 ambulatory SHIMA RODAS Not Available Start: 06-01-2023 End: 06-01-2023 ambulatory SHIMA RODAS Not Available Start: 04-30-2023 End: 04-30-2023 ambulatory NEDRA CALDERON [facility] Start: 04-30-2023 End: 04-30-2023 Office outpatient visit 15 minutes Nedra Calderon MD Work Phone: [facility] Comment on above: Seizure (CMS/HCC) (P rimary Dx) Start: 11-25-2022 End: 11-26-[address] WILLIS CHEN . Facility: Start: 11-16-2022 End: 11-17-[address] WILLIS CHEN . Facility: Start: 07-31-2022 Current tobacco non- user cad cap copd pv dm Koffi Uriarte Work Phone: [employer] Work Phone: Start: 07-31-2022 Periodic preventive med est patient 18-39 yrs Koffi Uriarte Work Phone: [employer] Work Phone: Start: 07-31-[address] Koffi Uriarte Facility:[id number] Start: 04-16-2022 End: 04-17-2022 ambulatory KAVITA SWEET Facility:[facility] Start: 03-24-2022 End: 03-25-2022 ambulatory Dane Hassan Facility:[facility] Start: 03-24-2022 Telephone encounter Kavita lyons DO Work Phone: OB/Gynecology Comment on above: Bleeding With Pregna ncy Start: 03-24-2022 End: 03-24-2022 Patient encounter procedure Dane Phelany [facility] Start: 03-19-2022 Telephone encounter Georgia Nathan patricia SHEPHERDMEAT BONER Work Phone: CB/Gynecology Comment on above: Appointment Start: 03-18-2022 AUDIT Koffi Carlson [employer] Work Phone: AT-Ojnrgnzmw-Iwxgxrx e [employer] DO Work Phone: Start: 02-03-2022 ambulatory Brendan Blankenship PA-C Work Phone: OB/Gynecology Comment on above: Bacteria Vaginosis Start: 01-02-2022 AUDIT Koffi A Rich ardson Work Phone: MP-DWXX-Xzga [place] Work Phone: Start: 12-24-2021 Office outpatient vi sit 15 minutes Koffi A Uriarte Work Phone: EO-Osrugfqmj-Ntddvli e [employer] DO Work Phone: Start: 11-17-2021 Office outpatient vi sit 15 minutes Koffi A Uriarte Work Phone: PU-GWGV-Cswk [place] Work Phone: Start: 09-29-2021 AUDIT Koffi A Rich ardson Work Phone: QK-UPOD-Izwo [place] Work Phone: Start: 09-09-2021 End: 09-09-2021 ambulatory BRENDAN LEYVANORAHBOSSMAN Facility:[facility] Start: 07-04-2021 End: 07-05-2021 ambulatory GEORGIA REYMUNDO Facility:[facility] Start: 07-04-2021 Encounter for gynecological examination (general) (routine) without abnormal findings GEORGIA DWYER [facility] Start: 06-25-2021 Office outpatient vi sit 25 minutes Koffi A Uriarte Work Phone: XD-Dqiuofkta-Pjpjfos e [employer] DO Work Phone: Start: 05-22-2021 Chart Update Koffi Carlson ardson Work Phone: AT-GTFF-Qsqd [place] Work Phone: Start: 05-20-2021 Office outpatient vi sit 25 minutes Koffi Alison ClementeUriarte Work Phone: LC-LUXU-Kdzd [place] Work Phone: Start: 05-20-2021 Patient encounter procedure Koffi Clementeson Work Phone: OD-RXVY-Qhfr [place] Work Phone: Start: 03-28-2021 AUDIT Koffi Carlson ardson Work Phone: AX-SMYH-Wnzu [place] Work Phone: Start: 12-24-2020 Chart Update Koffi Carlson ardson Work Phone: XI-ZRML-Emgd [place] Work Phone: Start: 12-24-2020 Office outpatient vi sit 25 minutes Koffi Alison ClementeUriarte Work Phone: NE-BDHN-Onoc [place] Work Phone: Start: 08-14-2020 Patient encounter procedure Koffi Uriarte IX-Sjeuufsql-Emeofyx e [employer] DO Work Phone: Start: 06-11-2020 Patient encounter procedure Koffi Uriarte QJ-Ijurhldrd-Lzabxqg e SJW DO Work Phone: Start: 05-28-2020 Patient encounter procedure Koffi Uriarte HW-YPTC-Hxyn [place] Work Phone: Start: 05-09-2020 End: 05-12-2020 Patient encounter procedure [facility] Start: 05-09-2020 End: 05-11-2020 Subsequent hospital visit by physician Madeline Frey 1 EEG Comment on above: 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) Start: 04-25-2020 Patient encounter procedure Koffi Uriarte XR-KNXU-Lbsc [place] Work Phone: Start: 04-19-2020 End: 04-19-2020 Emergency department patient visit ZAC ANDERSON [facility] Start: 04-18-2020 End: 04-19-2020 Emergency department patient visit Tu Curran Work Phone: [facility] ED Comment on above: Seizure (HCC) (Prima ry Dx) Start: 03-02-2019 Patient encounter procedure Koffi Uriarte [employer] Work Phone: Start: 05-04-2017 Ambulatory Koffi Uriarte Fa cility:[facility] Patient encounter status Koffi Uriarte Work Phone: [employer] Work Phone: Procedures Date Procedure Procedure Detail [...] brain brain stem w/o w/contrast material Spike Garica Work Phone: Start: 05-09-2020 Electroencephalogram w/rec awake&drowsy Spike Garcia Work Phone: Start: 04-19-2020 Assay of lactate ZAC ANDERSON Start: 04-19-2020 Assay of prolactin ZAC ANDERSON Start: 04-19-2020 Ct head/brain w/o contrast material ZAC JACKALEJANDRINAMULU Start: 04-19-2020 Urinalysis microscopic only ZAC SUE GISSELSD Start: 04-19-2020 Urnls dip stick/tablet rgnt auto w/o microscopy ZAC SINGHANChristina Start: 04-19-2020 Blood count complete auto&auto difrntl wbc ZAC MONICA Start: 04-19-2020 Comprehensive metabolic panel ZAC RA BRITT Start: 04-19-2020 Gonadotropin chorionic qualitative ZAC MONICA Start: 04-19-2020 DIET NPO, NOW ZAC SINGHANChristina Start: 04-19-2020 SEIZURE PRECAUTIONS ZAC MONICA Start: 04-19-2020 SALINE LOCK IV ZAC MONICA Start: 04-18-2020 Assay of lactate Tu knutson Work Phone: Start: 04-18-2020 Urinalysis microscopic only Tu Reece [facility] Work Phone: Start: 04-18-2020 Urnls [...] f 2) Zoster Vaccines (1 of 2) [facility] Start: 02-17-2028 DTaP/Tdap/Td Vaccine s (8 - Td or Tdap) DTaP/Tdap/Td Vaccines (8 - Td or Tdap) [facility] Start: 08-02-2023 PHYSICAL, Provider: Koffi Uriarte, Status: Pen, Time: 9:00 AM PHYSICAL, Provider: Koffi Uriarte, Status: Pen, Time: 9:00 AM FZ-YQLK-Ceqz [place] Work Phone: Start: 08-02-2023 End: 08-02-2023 Patient encounter procedure 08/02/2023 9:00 AM EST Office Visit [facility] [address] [place] [id number] [place] [address] [place] [address] [facility] Start: 07-02-2023 PAP TESTING PAP TESTING [facility] Start: 07-02-2023 Screening for malignant neoplasm of cervix [facility] Start: 12-24-2022 ERIKA, Provider : Nedra Calderon, Status: Pen, Time: 10:00 AM ERIKA, Provider: Nedra Calderon, Status: Pen, Time: 10:00 AM AV-Wdecuzolq-Bkyzueh e W DO Work Phone: Start: 05-22-2022 PHYSICAL, Provider: Koffi Uriarte, Status: Pen, Time: 9:50 AM PHYSICAL, Provider: Koffi Uriarte, Status: Pen, Time: 9:50 AM GS-WNNT-Icoz [place] Work Phone: Start: 03-24-2022 End: 05-24-2022 Choriogonadotropin.bet a subunit [Units/volume] in Serum or Plasma HCG QUANTITATIVE Lab Routine Bleeding in early Expected: 03/24/2022, Expires: 05/24/2022 [facility] Work Phone: Comment on above: Expected: 03/24/2022 , Expires: 05/24/2022 Start: 03-19-2022 Influenza vaccination INFLUENZA (#1) [facility] Start: 12-24-2021 Thyroid stimulating hormone measurement TSH Level [facility] Start: 12-24-2021 ERNEE, Provider : Nedra Calderon, Status: Nikita, Time: 11:30 AM FUVGENERAL, Provider: Nedra Calderon, Status: Pen, Time: 11:30 AM EH-Iavzkwvpt-Pqtxbxq e SJW DO Work Phone: Start: 11-17-2021 FUV, Provider: Koffi Uriarte, Status: Pen, Time: 1:00 PM FUV, Provider: Koffi Uriarte, Status: Pen, Time: 1:00 PM VP-BWCV-Fsow [place] Work Phone: Start: 07-01-2021 COVID-19 VACCINE (3 - Booster for Pfizer series) COVID-19 VACCINE (3 - Booster for Pfizer series) [facility] Start: 06-25-2021 FUVGENERAL, Provider : Nedra Calderon, Status: Pen, Time: 2:00 PM FUVGENERAL, Provider: Nedra Calderon, Status: Pen, Time: 2:00 PM GP-NXFI-Kdgc [place] Work Phone: Start: 06-25-2021 FUVGENERAL, Provider : Nedra Calderon, Status: Pen, Time: 11:00 AM FUVGENERAL, Provider: Nedra Calderon, Status: Pen, Time: 11:00 AM FD-CVJR-Ctiw [place] Work Phone: Start: 05-20-2021 FUV, Provider: Koffi Uriarte, Status: Pen, Time: 3:40 PM FUV, Provider: Koffi Uriarte, Status: Pen, Time: 3:40 PM SM-IGRG-Kflx [place] Work Phone: Start: 03-31-2021 FUV, Provider: Koffi Uriarte, Status: Pen, Time: 2:00 PM FUV, Provider: Koffi Uriarte, Status: Pen, Time: 2:00 PM ZO-HWWZ-Obzz [place] Work Phone: Start: 03-26-2021 COVID-19 Vaccine (3 - Pfizer series) COVID-19 Vaccine (3 - Pfizer series) [facility] Start: 03-19-2020 Influenza vaccination Flu vaccine (# 1) [place], [place] Start: 03-02-2018 DTaP/Tdap/Td vaccine (7 - Td) DTaP/Tdap/Td vaccine (7 - Td) [place] Start: 03-02-2018 Urine microalbumin profile DTAP,TDAP,TD (7 - Td or Tdap) [facility] Start: 2014 Screening for malignant neoplasm of cervix [facility] Start: 10-02-2011 HEPATITIS C SCREENING HEPATITIS C [facility] Start: 10-02-2011 Hepatitis C screening Hepatitis C [facility] Start: 10-02-2011 HIV SCREENING HIV SCREENING [facility] Start: 2008 HIV screening HIV screen [place], [place] Start: 2005 Adult depression screening assessment DEPRESSION SCREENING [facility] Start: 2004 HPV vaccine (1 - 2-dose series) HPV vaccine (1 - 2-dose series) [place], [place] Start: 04-09-1999 Varicella vaccination Varicell a Vaccines (1 of 2 - 2-dose childhood series) [facility] Start: 1994 Varicella vaccine (1 of 2 - 2-dose childhood series) Varicella vaccine (1 of 2 - 2-dose childhood series) [place] Start: 1993 HIV screening HIV Screening [facility] Start: 1993 Lipid panel Lipid Panel [facility] Start: 1993 Yearly Adult Physical Yearly Adult P [facility] End: 04-18-2020 CT Head WO Contrast CT Head WO Contrast Imaging STAT Once for 1 Occurrences starting 04/18/2020 until 04/18/2020 [place], [place] Comment on above: Once for 1 Occurrenc es starting 04/18/2020 until 04/18/2020 CT Head WO Contrast CT Head WO C ontrast Imaging STAT 04/18/2020 11:15 PM EDT [place] End: 04-18-2020 Prolactin Prolactin Lab STAT One Time for 1 Occurrences starting 04/18/2020 until 04/18/2020 [place] Comment on above: One Time for 1 Occur rences starting 04/18/2020 until 04/18/[address] AT 04/18/2020 11:17 PM EDT [facility] [place], [place] UE-BCVW-Apql La ke Work Phone: Joshua kauffman NEGATED: Highlighted row has been ruled out! Planned Goals not documented WV-LGWK-Vczk [place] Work Phone: Immunizations Immunization Date Immunization Notes Care Provider Radha laura 04-21-2022 influenza, injectabl e, quadrivalent, preservative free Koffi A Uriarte Work Phone: MP-UJWG-Zpkx [place] Work Phone: 04-18-2021 influenza, injectabl e, quadrivalent, preservative free Koffi A Uriarte Work Phone: VQ-VGXU-Zvja [place] Work Phone: 01-29-2021 Pfizer-BioNTech COVID-19 Vacc 30 MCG/0.3ML Intramuscular Suspension Koffi A Uriarte Work Phone: PM-FPZC-Ecvb [place] Work Phone: 01-08-2021 Pfizer-BioNTech COVID-19 Vacc 30 MCG/0.3ML Intramuscular Suspension Koffi A Uriarte Work Phone: AC-EEPT-Abns [place] Work Phone: 05-09-2019 Influenza, injectabl e, Madin Cozad Canine Kidney, preservative free, quadrivalent Koffi A Uriarte Work Phone: YC-AEGE-Zqdt [place] Work Phone: 04-28-2018 influenza, injectabl e, quadrivalent, contains preservative Koffi A Uriarte Work Phone: RL-TGWY-Fedo [place] Work Phone: 02-16-2018 tetanus toxoid, redu diego diphtheria toxoid, and acellular pertussis vaccine, adsorbed Koffi A Uriarte Work Phone: TE-XMDA-Lffo [place] Work Phone: 05-06-2017 influenza, injectabl e, quadrivalent, preservative free Koffi Uriarte Work Phone: [employer] Work Phone: 01-14-2016 pneumococcal polysaccharide vaccine, 23 valent Koffi Uriarte Work Phone: [employer] Work Phone: 11-30-2014 tuberculin skin test ; purified protein derivative solution, intradermal [facility], [place] 12-15-2013 tuberculin skin test ; purified protein derivative solution, intradermal [facility], [place] 03-02-2008 tetanus toxoid, redu diego diphtheria toxoid, and acellular pertussis vaccine, adsorbed [facility] 02-25-2007 meningococcal polysaccharide (groups A, C, Y and W-135) diphtheria toxoid conjugate vaccine (MCV4P) [place], [place] 02-25-2007 Meningococcal, MCV4, unspecified conjugate formulation(groups A, C, Y and W-135) [facility] 03-12-1999 diphtheria, tetanus toxoids and acellular pertussis vaccine [facility] 03-12-1999 diphtheria, tetanus toxoids and acellular pertussis vaccine, unspecified formulation Koffiminesh Uriarte Work Phone: [employer] Work Phone: 03-12-1999 haemophilus influenz ae type b vaccine, HbOC conjugate [facility] 03-12-1999 measles, mumps and rubella virus vaccine [facility] 03-12-1999 poliovirus vaccine, inactivated [facility], [place] 03-12-1999 trivalent poliovirus vaccine, live, oral [place], [place] 01-07-1995 diphtheria, tetanus toxoids and acellular pertussis vaccine [facility] 01-07-1995 diphtheria, tetanus toxoids and acellular pertussis vaccine, unspecified formulation Koffi Uriarte Work Phone: [employer] Work Phone: 10-22-1994 haemophilus influenz ae type b vaccine, conjugate unspecified formulation [facility], [place] 10-22-1994 haemophilus influenz ae type b vaccine, PRP-OMP conjugate Koffi Uriarte Work Phone: [employer] Work Phone: 10-22-1994 Hib, unspecified [facility], [place] 10-22-1994 measles, mumps and rubella virus vaccine [facility] 10-22-1994 poliovirus vaccine, inactivated [facility] 06-18-1994 hepatitis B vaccine, pediatric or pediatric/adolescent dosage Koffi Uriarte Work Phone: [facility] 06-18-1994 hepatitis B vaccine, unspecified formulation [place], [place] 04-16-1994 diphtheria, tetanus toxoids and acellular pertussis vaccine [place], [place] 04-16-1994 diphtheria, tetanus toxoids and pertussis vaccine [facility] 04-16-1994 haemophilus influenz ae type b vaccine, conjugate unspecified formulation [place], [place] 04-16-1994 haemophilus influenz ae type b vaccine, HbOC conjugate Brendan Blankenship PA-C Work Phone: [facility] 04-16-1994 haemophilus influenz ae type b vaccine, PRP-OMP conjugate Koffi Alison Chapito Work Phone: [employer] Work Phone: 04-16-1994 Hib, unspecified [facility], [place] 04-16-1994 poliovirus vaccine, inactivated [facility] 04-16-1994 trivalent poliovirus vaccine, live, oral [facility], [place] 02-12-1994 diphtheria, tetanus toxoids and acellular pertussis vaccine [facility], [place] 02-12-1994 diphtheria, tetanus toxoids and pertussis vaccine [facility] 02-12-1994 haemophilus influenz ae type b vaccine, conjugate unspecified formulation [place], [place] 02-12-1994 haemophilus influenz ae type b vaccine, HbOC conjugate Brendan Mcelroypp PA-C Work Phone: [facility] 02-12-1994 haemophilus influenz ae type b vaccine, PRP-OMP conjugate Koffi A Uriarte Work Phone: [employer] Work Phone: 02-12-1994 Hib, unspecified [facility], [place] 02-12-1994 poliovirus vaccine, inactivated [facility] 02-12-1994 trivalent poliovirus vaccine, live, oral [facility], [place] 01-08-1994 hepatitis B vaccine, pediatric or pediatric/adolescent dosage Koffi A Uriarte Work Phone: [facility] 01-08-1994 hepatitis B vaccine, unspecified formulation [place], [place] 1993 diphtheria, tetanus toxoids and acellular pertussis vaccine [place], [place] 1993 diphtheria, tetanus toxoids and pertussis vaccine [facility] 1993 haemophilus influenz ae type b vaccine, conjugate unspecified formulation [facility], [place] 1993 haemophilus influenz ae type b vaccine, HbOC conjugate Brendan Leyvaenapp PA-C Work Phone: [facility] 1993 haemophilus influenz ae type b vaccine, PRP-OMP conjugate Koffi A Uriarte Work Phone: [employer] Work Phone: 1993 hepatitis B vaccine, pediatric or pediatric/adolescent dosage Koffi A Uriarte Work Phone: [facility] 1993 hepatitis B vaccine, unspecified formulation [facility] , [place] 1993 Hib, unspecified [facility], [place] 1993 poliovirus vaccine, inactivated [facility] 1993 trivalent poliovirus vaccine, live, oral [facility], [place] Payers Date Payer Category Payer Self-pay 2020 Unknown 2020 Unknown MMO MMO [employer] [id number] 2020-Present [phone] [address] [place] [address] O [id number] 2019 Unknown [id number] 1993 Unknown [id number] 1993 Unknown [id number] 1993 Unknown [id number] 1993 Unknown [id number] 1993 Unknown [id number] [id number] 1993 Unknown [id number] [id number] 1993 Unknown [id number] [id number] 1993 Unknown [id number] [id number] 1993 Unknown [id number] [id number] 1993 Unknown [id number] [id number] 1993 Unknown [id number] [id number] 1993 Unknown [id number] [id number] 1993 Unknown [id number] [id number] 1993 Unknown [id number] 1959 Unknown [id number] Unknown [id number] Unknown [id number] Social History Date Type Detail Facility Start: 04-18-2020 End: 04-30-2023 Tobacco smoking status [facility] Never smoker [facility] Start: 04-18-2020 End: 04-30-2023 [facility] and exposure [facility] [place] [place] Start: 04-18-2020 End: 09-09-2021 Alcohol intake Current drinker of alcohol (finding) [facility] [place] Start: 09-19-2019 History SDOH Financial 5 [place], [place] Start: 09-19-2019 History SDOH Food Worry 1 [place] Start: 09-19-2019 History SDOH Transport Med 2 [place] Start: 04-18-2020 Alcohol Comment [facility] [place] [place] Start: 1993 Sex Assigned At Not on file [place] Start: 04-20-2023 End: 04-30-2023 Exposure to SARS-CoV-2 (event) Not sure [place], [place] Never smoker Never smoker [facility] Work Phone: Tobacco smoking status Never [facility] Sex Assigned At Female [facility] NEGATED: Highlighted row - - [employer] Work Phone: NEGATED: Highlighted rowStart: KAMIF History of tobacco use Passive smoker [facility] Work Phone: Functional Status Date Assessment Result Facility NEGATED: Highlighted row Functional performance Functional status health issues are not documented Disease [employer] Work Phone: Mental Status Date Assessment Result Facility NEGATED: Highlighted row Cognitive function [Interpretation] Cognitive status health issues are not documented Disease CP-RXCF-Woqj [place] Work Phone: Clinical Notes 08-09-2017 to 04-30-2023 Nedra Calderon MD - 04/30/2023 11:30 AM EDTTelephone Encounter - Mary Onofre, RN - 03/24/2022 11:55 AM EDTTelephone Encounter - Kavita Sweet, - 03/24/2022 11:37 AM EDT Note Date [...] 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 Patient Active Problem List Diagnosis Abnormal weight [...] 5/5 throughout all four extremities. Coordination Right: Uoyibg-ft-[id number] normal.Left: Mvgygp-xq-sksb normal. Physical Exam Eyes: Extraocular Movements: Extraocular [...] in 1 year documented in this encounter [facility] Work Phone: 11-25-2022 Note EXAMINATION: US [...] authenticated by: HAYLIE RIVER Date: 2022-11-25 17:20 [facility] 04-16-2022 Note HNO ID: [id number] Author: Brendan Blankenship PA-C Service: ? 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 I, Brendan Blankenship, have reviewed this information as documented for accuracy and performed all elements of history taking, and edited the record as necessary. ROS: SEE HPI PE: GENERAL: well-appearing, in no acute distress LUNGS: Normal inspiratory effort WHITE METAL CASTER: Normal external genitalia, no vaginal bleeding, small [...] Medical Decision Making Level: 3 - [facility] 03-24-2022 Miscellaneous Notes VM left w req for RCTO please call patient back could have been a chemical will have nurse contact once blood work reviewed home test reliable if desiring OV for concerns please schedule other OV, cancel OCT new OB thanks calling today. LMP 02/11/22. Pt took HPT 9/ d/t period being late. Pt got 3 [...] move appt sooner. documented in this encounter [facility] 03-19-2022 Miscellaneous Notes LMP 02/11, +hpt. Assisted w initial OBV. Advised to take vitamin w folic acid. First trimester precautions provided. handbook sent in . documented in this encounter [facility] 02-03-2022 Miscellaneous Notes The following approved medication requests have been transmitted electronically. Signed Prescriptions Disp Refills metroNIDAZOLE (FLAGYL) 500 mg tablet 14 tablet 0 Sig: Take 1 tablet by mouth twice daily. for vaginosis. Do not drink alcohol while taking this medication MICHELLE: No Brendan Souza APRN.MEAT BONER Pt reporting vag discharge/odor- same symptoms as past +BV dx. Last annual 06/2021. Req for BV medications Pending Prescriptions Disp Refills METRONIDAZOLE 500 MG TABLET 14 tablet 0 Sig: Take 1 tablet by mouth twice daily. for vaginosis. Do not drink alcohol while taking this medication MICHELLE: No documented in this encounter [facility] 09-09-2021 Note HNO ID: [id number] Author: Brendan Blankenship PA-C Service: ? 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 Portions of this record were documented by the Anthropology Professor. I, Brendan Blankenship, have reviewed this information as documented for accuracy and performed all elements of history taking, and edited the record as necessary. 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 [...] Medical Decision Making Level: [address] [facility] 07-04-2021 Note HNO ID: [id number] Author: 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 APRN.MEAT BONER Service: ? 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 Avoid scratching, scented pads/tampons/toilet papers, cranberry juice, bubble baths, and intercourse until symptoms are relieved. NO douching. If you shave, use a new razor at least twice monthly. 5) Follow up one year or sooner as needed 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 APRN.MEAT BONER [facility] 08-09-2017 History of Past i llness Narrative Problem Noted Date Resolved Date NO SHOW 08/09/2017 08/09/2017 documented as of this encounter (statuses as of 02/03/2022) [facility] of Past illness Narrative* Problem Noted Date Resolved Date NO SHOW 08/09/2017 08/09/2017 documented as of this encounter (statuses as of 03/19/2022) [facility] of [facility] illness Narrative* Problem Noted Date Resolved Date NO SHOW 08/09/2017 08/09/2017 documented as of this encounter (statuses as of 03/24/2022) [facility] No data available for this section [facility] [place] [facility] Diagnosis Acute vaginitis- Primary Vaginitis and vulvovaginitis, unspecified [facility] [place] [facility] Diagnosis Bleeding in early - Primary Unspecified hemorrhage in early , unspecified as to episode of care [facility] [place] [facility] Diagnosis Seizure ([facility]/HCC)- Primary Other convulsions documented in this encounter [facility] Work Phone: History of Present illness Narrative* The patient states she has been doing well with her blood pressure control since the last visit. She has no comorbid illnesses. She has no significant interval events. * Symptoms: The patient is currently asymptomatic. * Less anxiety lately. Broke up with her boyfriend. * Working in [employer] at the [employer]. * BP is much improved on lisinopril. * Saw gyne for discharge. * was told she had BV and chlamydia. * took antibiotics, got better for a few weeks and now she is having discharge again and odor. no pelvic pain. [facility] Work Phone: History of Present illness Narrative* The patient states she has been doing well with her blood pressure control since the last visit. She has no comorbid illnesses. She has no significant interval events. * Symptoms: The patient is currently asymptomatic. * Less anxiety lately. Broke up with her boyfriend. * Working in [employer] at the [employer] department. * BP is much improved on lisinopril. * Saw gyne for discharge. * was told she had BV and chlamydia. * took antibiotics, got better for a few weeks and now she is having discharge again and odor. no pelvic pain. [facility] Work Phone: Hospital Discharge instructions No data available for this section [facility] No data available [facility] this section [facility] Purpose Family History No Family History [...] FoundDocuments on File Type Date Recorded Patient 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 Loading Expl anation ACP-Advance Directive ACP-Power of Electrical Equipment Technician Documents on File Type Date Recorded Patient 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 Loading Expl anation ACP-Advance Directive ACP-Power of Electrical Equipment Technician Documents on File Type Date Recorded Patient 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 Loading Expl anation Advance Directive(s) 11/30/2015 2:19 PM Reason for Referral Status Reason Specialty Diagnoses / Procedures Referre d By Contact Referred To Contact Open Radiology Diagnoses Nonintractable generalized idiopathic epilepsy without status epilepticus (HCC) Procedures MRI BRAIN W WO CONTRAST Spike Garcia MD [address] [address] Assessments Diagnosis Nonintractable generalized idiopathic epilepsy without status epilepticus (HCC) Diagnosis Seizure (HCC) Other convulsions Discharge Instructions * Attachments The following attachments cannot be sent through Care Everywhere. * Seizure (Lebanese) documented in this encounter Additional Source Comments INFORMATION SOURCE (unrecogn ized section and content) DATE CREATED AUTHOR [place]11[place] [facility] [place] DATE CREATED AUTHOR AUTHOR'S ORGANIZ ATION 04/19/2020 [facility] DATE CREATED AUTHOR AUTHOR'S ORGANIZ ATION 05/11/2020 [facility] DATE CREATED AUTHOR AUTHOR'S ORGANIZ ATION 12/29/2020 [facility] DATE CREATED AUTHOR AUTHOR'S ORGANIZ ATION 04/14/2022 [facility] DATE CREATED AUTHOR AUTHOR'S ORGANIZ ATION 04/20/2022 [facility] DATE CREATED AUTHOR AUTHOR'S ORGANIZ ATION 08/11/2022 [facility] DATE CREATED AUTHOR AUTHOR'S ORGANIZ ATION 11/29/2022 [facility] DATE CREATED AUTHOR AUTHOR'S ORGANIZ ATION 12/27/2022 [facility] DATE CREATED AUTHOR AUTHOR'S ORGANIZ ATION 05/02/2023 [facility] DATE CREATED AUTHOR AUTHOR'S ORGANIZ ATION 08/08/2023 [facility] DATE CREATED AUTHOR AUTHOR'S ORGANIZ ATION 08/12/2023 [facility] EPIC Reason for Visit (unrecogniz ed section and content) Status Reason Specialty Diagnoses / Procedures Referre d By Contact Referred To Contact Closed EEG Diagnoses Generalized idiopathic epilepsy and epileptic syndromes, not intractable, without status epilepticus Procedures EEG 16+ CHANNEL TELEMTERY 24HR Spike Garcia MD [address] [facility] [address] [place] [address] Mloz Eeg [address] [place] [address] Status Reason Specialty Diagnoses / Procedures Referre d By Contact Referred To Contact Closed Radiology Diagnoses Generalized idiopathic epilepsy and epileptic syndromes, not intractable, without status epilepticus Procedures MRI-BRAIN WO & W CONTRAST Spike Garcia MD [address] [facility] [address] [place] [address] Mloz Mri [address] [place] [address] Reason Comments Seizures Seizure like activit y [...] or prosecute any alcohol or drug abuse patient.[facility] the event this information is protected by the Federal Confidentiality of Alcohol and Drug Abuse Patient Records regulations: The Federal rules restrict any use of the information to criminally investigate or prosecute any alcohol or drug abuse patient.[facility] System[facility] the event this information is protected by the Federal Confidentiality of Alcohol and Drug Abuse Patient Records regulations: The Federal rules restrict any use of the information to criminally investigate or prosecute any alcohol or drug abuse patient.[facility] Care Teams (unrecognized sec tion and content) Room Attendant Relationship Specialty Start Date End Date Koffi Uriarte MD PCP - General Family Practice 08/17/16 Room Attendant Relationship Specialty Start Date End Date Koffi Uriarte MD PCP - General Family Practice 08/17/16 Room Attendant Relationship Specialty Start [place] [address] [address] [address] PCP - General 08/14/20 [place] [address] [place], [place] [id number] PCP - MMO ACO PCP 02/16/23 FOR [...] BE BASED ON THE PRIMARY CLINICAL RECORDS. [facility]. provides no warranty or guarantee of the accuracy or completeness of information in this document.
== END 2023-07-31 11:58 | disposition home or self-care (01) ==
LOC: FBCO 10:49 → FBC 10:51
PROVIDERS: Visit Provider Obstetrics & Gynecology
DX: O36.63X0 Maternal care for excessive fetal growth, third trimester, not applicable or unspecified (principal); Z3A.00 Weeks of gestation of pregnancy not specified
CPT/HCPCS: 59025

== ENCOUNTER 2023-08-04 05:18 | Inpatient (IN) | payer OTHER, SELFPAY ==
[2023-08-04] VITALS (54 sets, daily range): BP systolic 99–139; BP diastolic 58–91; PULSE 56–81; RESP 10–24; TEMP 36.6–37.1; O2SAT 91–99
--- OUTSIDE RECORDS SUMMARY | 2023-08-04 05:22 | XMS_ITS | CCD ---
Author Name Unknown Address [address] [place] [address] Organization [facility] Care Team Providers Care [employer] Supervisor Name Role Phone Uriarte, Koffi A Unavailable [...] Care Unavailabl e BRENDAN BLANKENSHIP Attending Unavailable CHAPTIO, KOFFI Rosas Primary Care Unavailabl e Unavailable Unavailable ELSIE ., DR GONZALEZ Admitting Unavailable ELSIE ., DR GONZALEZ Attending Unavailable ELSIE ., DR GONZALEZ Consulting Unavailable ELSIE ., DR GONZALEZ Admitting Unavailable ELSIE ., DR GONZALEZ Attending Unavailable VALENCIA, DR HAYLIE Garcia Consulting Unavailable ELSIE ., DR GONZALEZ Consulting Unavailable Chapito, Dr. Koffi Rosas Primary Care Dario Uriarte, Dr. Koffi Rosas Attending Dario Uriarte, Dr. Koffi Rosas Referring Koffi Oquendo MD Primary Care Provider Koffi Uriarte MD Unavailable NEDRA CALDERON Attending Unavailable KOFFI URIARTE Primary Care Unavailabl e SHIMA RODAS Attending Unavailable SHIMA RODAS Attending Unavailable LISA ZIMMERMAN Attending Unavailable SHIMA RODAS Attending Unavailable SHIMA RODAS Attending Unavailable Allergies Allergy Classification Reported Allergen(s) Allergy Type Date of Onset Reaction(s) Facility (1 source) No Known Medication Allergies; Translations: [No Known Medication Allergies] Propensity to adverse reactions (disorder) [facility] Repository Medications Current Medications Medication Drug Class(es) Dates Sig (Normalized) Sig (Original) {21 (Ethinyl Estradiol 0.02 MG / Levonorgestrel 0.1 MG Oral Tablet) / 7 (Inert Ingredients 1 MG Oral Tablet) } Pack [Orsythia 28 Day] (9 sources) Progestin, Estrogen, Progestin-containin g Intrauterine Device Start: 06-05-2019 Orsythia 100 mcg-20 mcg oral tablet 1 tab(s), Oral, Daily, 3 EA, Refill(s) [id number] #[id number] Start Date: 06/05/19 Status: Ordered Start: [...] 120 tab(s), Refills(s) 0, [facility]acy: [id number] Start Date: 06/05/19 Status: Ordered ondansetron 4 [...] (20 sources) Seizure; Translations: [Other convulsions] Onset: 03-17-2023 10-13-2023 Episodic Comment on above: seeing Dr. Calderon. [...] 10-02-2022 10-02-2022 Episodic Unclassified (1 source) R07.9 08398/8 Onset: 05-04-2017 Unclassified (5 sources) Patient encounter status; Translations: [Encounter for audiology evaluation] NEGATED: Highlighted row has not occurred!Residual codes; unclassified (17 sources) Disease Episodic Results Test Name Value Interpretation Reference Range Facility DHEA SERUMon 11-20-2022 Dehydroepiandrosterone (DHEA) 656 ng/dL Normal 31-701 [facility] Comment on above: Performed By: #### D LAMAR. #### [facility] [address] [place] [address] Dr. Vish Brown ANTI-MULLERIAN HORMONEon Anti-Mullerian Hormone (AMH) 4.47 ng/mL Normal [facility] Comment on above: Result Comment: For assays employing antibodies, the possibility exists for interference by heterophile antibodies in the samples.1 1.Favio Campos Interferences in Immunoassays - still a threat. Clin. Chem. 2000; 46: 2243-7517. This test was developed and its performance characteristics determined by [facility]. It has not been cleared or approved by the Food and Drug Administration. Reference Range: Females 26 - 30y: 1.03 - 11.10 Median 4.20 AMH concentrations of >= 1.06 ng/mL is correlated with a better response to ovarian stimulation, produced more retrievable oocytes and higher odds of live according to Gabi et al. Fertility and Sterility. 2010: 94:3679-6483. The current AMH test method correlates with [...] AMH-secreting ovarian tumor. Performed By: #### L [facility] #### [facility] [address] [place] [address] Dr. Vish Brown DHEA-SULFATEon 11-17-2022 DHEA-Sulfate 449.0 ug/dL Critically high 84.8-378.0 [facility] Comment on above: Performed By: #### L [facility] #### [facility] [address] [place] [address] Dr. Vish Brown ESTRADIOLon 11-17-2022 Estradiol 34.3 pg/mL Normal [facility] Comment on above: Result Comment: Adul t Female: Follicular phase 12.5 - 166.0 Ovulation phase 85.8 - 498.0 Luteal phase 43.8 - 211.0 Postmenopausal <6.0 - 54.7 1st trimester 215.0 - >4300.0 Ele ECLIA methodology Performed By: #### E CHLOE #### [facility] [address] [place] [address] Dr. Vish Brown FSHon 11-17-2022 FSH 6.1 mIU/mL Normal [facility] Comment on above: Result Comment: Adul t Female: Follicular phase 3.5 - 12.5 Ovulation phase 4.7 - 21.5 Luteal phase 1.7 - 7.7 Postmenopausal 25.8 - 134.8 Performed By: #### L [facility] #### [facility] [address] [place] [address] Dr. Vish Brown LUTEINIZING HORMONE (LH)on 0 11-17-2022 LH 4.5 mIU/mL Normal [facility] Comment on above: Result Comment: Adul t Female: Follicular phase 2.4 - 12.6 Ovulation phase 14.0 - 95.6 Luteal phase 1.0 - 11.4 Postmenopausal 7.7 - 58.5 Performed By: #### L SUHAS #### [facility] [address] [place] [address] Dr. Vish Brown PROGESTERONEon 11-17-2022 Progesterone 0.8 ng/mL Normal [facility] Comment on above: Result Comment: Foll icular phase 0.1 - 0.9 Luteal phase 1.8 - 23.9 Ovulation phase 0.1 - 12.0 First trimester 11.0 - 44.3 Second trimester 25.4 - 83.3 Third trimester 58.7 - 214.0 Postmenopausal 0.0 - 0.1 Performed By: #### P TASNEEM #### [facility] [address] [place] [address] Dr. Vish Brown CBC AUTO DIFFon 11-16-2022 BASO # 0.0 103/ul Normal 0.0-0.1 [facility] Comment on above: Performed By: #### L SUHAS #### [facility] [address] [place] [address] Dr. Vish Brown Basophils/100 WBC (Bld) 0.5 % Normal 0.2-2.0 T [facility] Comment on above: Performed By: #### L SUHAS #### [facility] [address] [place] [address] Dr. Vish Brown EO # 0.3 103/ul Normal 0.0-0.7 [facility] Comment on above: Performed By: #### L SUHAS #### [facility] [address] [place] [address] Dr. Vish Brown Eosinophils/100 WBC (Bld) 4.0 % Normal 0.9-7.0 [facility] Comment on above: Performed By: #### L BCL #### [facility] [address] [place] [address] Dr. Vish Brown Erythrocyte distribution width (RBC) [Ratio] 12.0 % Normal 11.0-15.0 [facility] Comment on above: Performed By: #### L BCL #### [facility] [address] [place] [address] Dr. Vish Brown Hematocrit (Bld) [Volume fraction] 39.1 % Normal 36.0-48.0 [facility] Comment on above: Performed By: #### L BCL #### [facility] [address] [place] [address] Dr. Vish Brown Hemoglobin (Bld) [Mass/Vol] 13.0 g/dL Normal 12.0-16.0 [facility] Comment on above: Performed By: #### L BCL #### [facility] [address] [place] [address] Dr. Vish Brown IG # 0.02 10e3/ul Normal 0.00-0.03 [facility] Comment on above: Performed By: #### L BCL #### [facility] [address] [place] [address] Dr. Vish Brown IG % 0.3 % Normal 0.0-0.5 [facility] Comment on above: Performed By: #### L BCL #### [facility] [address] [place] [address] Dr. Vish Brown LYMPH # 2.5 103/ul Normal 1.2-3.8 [facility] Comment on above: Performed By: #### L BCLH #### [facility] [address] [place] [address] Dr. Vish Brown Lymphocytes/100 WBC (Bld) 32.4 % Normal 20.5-60.0 [facility] Comment on above: Performed By: #### L BCLH #### [facility] [address] [place] [address] Dr. Vish Brown MANUAL DIFF REQ NO Normal [facility] Comment on above: Performed By: #### L BCLH #### [facility] [address] [place] [address] Dr. Vish Brown MCH (RBC) [Entitic mass] 29.9 pg Normal 26.7-34.0 [facility] Comment on above: Performed By: #### L BCLH #### [facility] [address] [place] [address] Dr. Vish Brown MCHC (RBC) [Mass/Vol] 33.2 g/dL Normal 29.9-35.2 [facility] Comment on above: Performed By: #### L BRUNAH #### [facility] [address] [place] [address] Dr. Vish Brown MCV (RBC) [Entitic vol] 89.9 fL Normal 81.0-99.0 [facility] Comment on above: Performed By: #### L BCL #### [facility] [address] [place] [address] Dr. Vish Brown MONO # 0.6 103/ul Normal 0.3-0.8 [facility] Comment on above: Performed By: #### L BRUNA #### [facility] [address] [place] [address] Dr. Vish Brown Monocytes/100 WBC (Bld) 7.4 % Normal 1.7-12.0 [facility] Comment on above: Performed By: #### L BCL #### [facility] [address] [place] [address] Dr. Vish Brown NEUT # 4.3 103/ul Normal 1.4-6.5 [facility] Comment on above: Performed By: #### L BCLH #### [facility] [address] [place] [address] Dr. Vish Brown Neutrophils/100 WBC (Bld) 55.4 % Normal 43.0-75.0 [facility] Comment on above: Performed By: #### L BCLH #### [facility] [address] [place] [address] Dr. Vish Brown Platelet mean volume (Bld) [Entitic vol] 9.0 fL Critically low 9.5-13.5 [facility] Comment on above: Performed By: #### L BCLH #### [facility] [address] [place] [address] Dr. Vish Brown PLT 277 103/ul Normal 150-450 [facility] Comment on above: Performed By: #### L BCLH #### [facility] [address] [place] [address] Dr. Vish Brown RBC 4.35 106/ul Normal 4.20-5.40 [facility] Comment on above: Performed By: #### L BCLH #### [facility] [address] [place] [address] Dr. Vish Brown WBC 7.7 103/ul Normal 4.0-11.0 [facility] Comment on above: Performed By: #### L BCLH #### [facility] [address] [place] [address] Dr. Vish Brown FREE T4on 11-16-2022 Free T4 [Mass/Vol] 1.08 ng/dL Normal 0.76-1.46 [facility] Comment on above: Performed By: #### F T4 #### [facility] [address] [place] [address] Dr. Vish Brown GLYCOHEMOGLOBIN A1Con 2022 ADA RECOMMENDATION SEE BELOW Normal [facility] Comment on above: Result Comment: ADA RECOMMENDED LIMIT 4.0 - 6.0 ADA THERAPEUTIC TARGET < 7.0 ACTION SUGGESTED > 7.0 Performed By: #### A 1C #### [facility] [address] [place] [address] Dr. Vish Brown Glucose [Mass/Vol] 94 mg/dL Normal [facility] Comment on above: Performed By: #### A 1C #### [facility] [address] [place] [address] Dr. Vish Brown HbA1c (Bld) [Mass fraction] 4.9 % Normal 4.5-6.2 [facility] Comment on above: Performed By: #### A 1C #### [facility] [address] [address] [address] Vish Brown PREG QUANT HCGon 11-16-2022 HCG QUANT <1 Normal [facility] Comment on above: Performed By: #### P REGQNT, TSH #### [facility] [address] [place] [address] Dr. Vish Brown HCG RANGE SEE BELOW Normal [facility] Comment on above: Result Comment: 5-50 0.2-1 WEEK 50-500 1-2 WEEKS 100-5,000 2-3 WEEKS 500-10,000 3-4 WEEKS 1,000-50,000 4-5 WEEKS 10,000-100,000 5-6 WEEKS 15,000-200,000 6-8 WEEKS 10,000-100,000 2-3 MONTHS Performed By: #### P REGQNT, TSH #### [facility] [address] [place] [address] Dr. Vish Brown TSHon 11-16-2022 TSH 2.030 uIU/mL Normal 0.358-3.740 [facility] Comment on above: Performed By: #### P REGQNT, TSH #### [facility] [address] [place] [address] Dr. Vish Brown HM 19-49 Yearson 07-31-2022 [...] Occasional alcohol (more content not included)... Normal [employer] Tobacco Screening.on 01-13-2 023 Adult depression screening assessment No [facility] Work Phone: Fall risk assessment a) No falls within the last year [facility] [employer] Work Phone: Tobacco use status CPHS b) No M [facility] [employer] [facility] Work Phone: B-HCG SerPl-aCncon 2 HCG.beta subunit Qn m[IU]/mL Normal <5.0 [facility] Comment on above: Order Comment: Speci men Type: BLOOD SPECIMENOrdering Facility: [facility] Address: [address] [place] [address] Result Comment: Soledad kyle Performed By: #### G CCT #### [place] [address] BACTERIAL VAGINOSIS AMPLIFIC ATIONon 04-16-2022 Lactobacillus crispatus+gasseri+jense james + Gardnerella vaginalis + Atopobium vaginae rRNA HUMERA+probe Ql (Vag fld) Negative Normal Negative for bacterial vaginosis [facility] Comment on above: Order Comment: Speci men Type: SWAB [facility]ing [facility] Address: [address] [place] [address] Performed By: #### C VTV, BVAMP #### [facility] CLIA [id number] [address] [place] [address] OF ONI C. trachomatis+N. gonorrhoea e DNA HUMERA+probe Ql (Unsp spec)on 04-16-2022 C. trachomatis DNA HUMERA+probe Ql (Unsp spec) Negative Normal Negative for Chlamydia trachomatis by amplificaton [facility] Comment on above: Order Comment: Speci men Type: SWAB [facility]ing [facility] Address: [address] [place] [address] Performed By: #### C VTV, BVAMP #### [facility] CLIA [id number] [address] [place] [address] [place] N. gonorrhoeae DNA HUMERA+probe Ql (Unsp spec) Negative Normal Negative for Neisseria gonorrhoeae by amplification [facility] Comment on above: Order Comment: Speci men Type: SWAB [facility]ing Facility[facility] Address: [address] [place] [address] Performed By: #### C VTV, BVAMP #### [facility] CLIA [id number] [address] [place] [address] OF [facility] MITCH / TRICHOMONAS AMPLIF ICATIONon 04-16-2022 MITCH / TRICHOMONAS AMPLIFICATION MITCH SPECIES GROUP RNA: Negative for Mitch species MITCH GLABRATA RNA: Negative for Mitch glabrata TRICH VAG AMPLIFICATION RNA: Negative for Trichomonas vaginalis by amplification Normal [facility] Comment on above: Performed By: #### C VTV, BVAMP #### [facility] CLIA [id number] [address] [place] [address] OF ONI CNCOon 04-16-2022 CNCO Letter Text Letter Text Normal [facility] CNOVon 04-16-2022 CNOV Office Visit ([facility] ) PRINCESS CANTU ([id number]) 1995 F Date Time Provider Department 04/16/22 8:00 [address] 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 I, Brendan Blankenship, have reviewed this information as documented for accuracy and performed all elements of history taking, and edited the record as necessary. 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 #:[id number] BACTERIAL VAGINOSIS AMPLIFICATION [SQBVAMP] Order #: [id number]. #:[id number] GC/CHLAMYDIA DNA DET [SQGCCAMP] Order #: [id number]. #:[id number] SYPHILIS TOTAL W/REFLEX [SQSYPHTX] Order #: [id number] FUTURE HIV 1 2 COMBO(AG/AB),WITH REFLEX TO DIFFERENTIATION [SQHIV12] Order #: [id number] FUTURE HEP C AB IA W/CONF SCRN [XWZAEX5S] Order #: [id number] FUTURE HEP B SURF AG SCRN [SQHBSAG] Order #: [id number] FUTURE Prescriptions as of 04/16/2022 - lamoTRIgine [...] Encounter Status:Closed by BRENDAN BLANKENSHIP on 04/16/22 [facility] HBV surface Ab IA Ql (S)on 0 04-16-2022 HBV surface Ag Ql (S) Negative Normal Negative [facility] Comment on above: Order Comment: Speci men Type: BLOOD SPECIMENOrdering Facility: [facility] Address: [address] [place], [place] [id number] Performed By: #### G CCT #### [place] [phone] HCV Ab Ser Qlon 04-16-2022 HCV Ab Ql (S) Negative Normal Negative [facility] Comment on above: Order Comment: Speci men Type: BLOOD SPECIMEN [facility] Address: [address] [place] [address] Result Comment: The result suggests no evidence of active infection with Hepatitis C virus. Should recent infection be suspected, repeat testing may be considered 4-6 weeks after this draw. Performed By: #### 1 [id number] #### [facility] CLIA [id number] [address] [place] [address] OF [facility] HIV 1+2 Ab IA Qlon 2 HIV 1 and 2 Ab IA.rapid Nom Normal [facility] Comment on above: Order Comment: Speci men Type: BLOOD SPECIMENOrdering Facility: [facility] Address: [address] [place] [address] Result Comment: Test not indicated. Performed By: #### G CCT #### [place] [phone] HIV 1+2 Ab+HIV1 p24 Ag IA Ql Non-Reactive Normal Nonreactive [facility] Comment on above: Order Comment: Speci men Type: BLOOD SPECIMENOrdering Facility: [facility] Address: [address] [place], [place] [address] Performed By: #### G CCT #### [place] [phone] HIVINT Normal [facility] Comment on above: Order Comment: Speci men Type: BLOOD SPECIMENOrdering Facility: [facility] Address: [address] [address] Result Comment: No e vidence of HIV-1 or HIV-2 infection. Should recent infection be suspected, repeat testing may be considered 2-3 weeks after this draw. [place] Rev. Code 3701.243(E): This information has been [...] diagnoses. Performed By: #### G CCT #### [place] [phone] Reagin and Treponema pallidu m IgG and IgM [Interp]on 04-16-2022 SYPHILIS INTERPRETATION Cannot exclude r ecent Treponemal infection if specimen collected within 7-10 days after appearance of suspect lesions or 2-3 weeks after an exposure. Clinical correlation is required. Normal [facility] Comment on above: Order Comment: Speci men Type: BLOOD SPECIMENOrdering Facility: [facility] Address: [address] [place] [address] Performed By: #### G CCT #### [place] [phone] T. pallidum IgG+IgM IA Ql (S) Non-Reactive Normal Nonreactive [facility] Comment on above: Order Comment: Speci men Type: BLOOD SPECIMENOrdering Facility: [facility] Address: [address] [place] [address] Performed By: #### G CCT #### [place] [phone] Coding Summary.on 03-27-2022 Coding Summary. CD:[id number] Gh 0bWw+PGhlYWQ+SK4WRXNtM 77ckXEheO5QU3fTMH1AGFB NDJEDPR2OEG2mrQA8FFpcJ 2VybiAv LwijkWGjCI60OUi8BFA8qO ftECsrsM5sbJAcX7n4VrQc VP43oN86FNajSSJhIfU2Ps ZpbjsgbWFy X8biRfCbsSHiZyn+PHRhYm xlIHdpZHRoPScxMDAlJyBz pQzbCR6hYk8gQCOkFPErcY xhcHNlOiBj h8xwOZYcPIbwOZ1ywSguE2 GthVK8LIQji3l6Ua52rLB+ WNMkLHQ5iNnhLOsob856Yz Khh0hoWYN3 gHBpHBbiPCO5V07om0F1FM QtGTNzFPE2nFK5iK3cpTzh yowyF0LvtMMnYrW6TAD9fW NwqJ5fwVnm wuhayE4jEem+A08NCA5FWD TOQY1ULth4L9NiWihdlTQ+ NH24VKLzWU00cJQpoCHvt3 jtaRp3QlLa YEMfWNH0iPgxTBcql9QwYO BhI77tzMRnx1K4XAXrwBuh uRUvDzBcfYI5pB3uJNuwky qwa0edpszk Hebcv9rdji84oT04S51xJH orDPDjZOA5QRMrXMWudIbr oj1vfY9lMf7+IDlpg4xpn6 uyrDs9XwGa IIYgloJyjEffEQU6a4QoSb 91E1EnaZism1TwJau2hx05 kRTpz0C7oUE6YKlhIKHljH 9jWXuyXjG7 PIKoUwXdiO44bDJgEOkfCh 2qzNwgfEceDG6zKKWtiktn ABYaeA1gDDQrrIQiiZkcOV 4wNTBpbjtm q359CpBlOIB3LSDucXQtH7 VedC4aXpQdOBXfCWQdM3Tv zFOaDAmsJ017VJtoIqV7XE UcqeDrK1Kj WKGtgAnnFoN2r5G6Mz1Tn7 RygzmoTNU3XBixWGG7SiH0 TeWdHbH5H8OnDsm7BOKqwA odFH2sZ6Zk DGNjmajnqqvswEP1QCFeKJ VeaP50mKLyCUgcTh5bo0A7 h151UJBiMKGhrR26Df3doJ ogMTBwdCBU bA3cwmtga1foykgbXsEiSZ YeKOu0LQz4RMUrpTesCyOj JET8BjH3EKL2cGSzgJ9kdZ sfpocadO8t Oyc+G58vaP5pIYB8OIK3nj tpSMGsqwXbLI15SB89X6Qb PjwvdGFibGU+PGRpdiBzdH qpIZ8gRlOz w0tgu5AwIVctB7EyAXHfBT rqKwf7ELHtEGU3mEX1gB3f WANsGEtmw2C8bZT8S6Hdkv Hnud8jg8pc DRZiNBndW67ljETvo1A7CW OcsZX7KEOsgRowAbGetK20 Oyc+JOPurEddj6GcRywjg0 vqd1jfbHh0 CoAxHBFfguLjdWtlVQG8e6 PiEw69L94eTHfxOEAnWVNy ATLjRVSwsPzjno1vpP6oLc 8+PGNvbCB3 bTW7rB7rDPTiVbU7SSniB1 34RjYtkSZjCyldx7ejr7un lXk7NmKmMQBfygZfyTvxLY N1a4GeYp75 U95nCSfpUIRfGANbZRHgGM QaqIpqxp5paR0xDw5+PC9j w3ojou19tF89vHN+PHRkIH G0cMfdKUeq HOZnzQ4rFJpsBaB1PZMmIx PxvB24wEWhOAjoEa5ogDfj mPojTP0pIMDbowqds638Fr Zxq6gsECXy pKHiKLzdFSX4Y88yn6Y8QZ BuFUYsMOR5hHR5bV7sfLvp bjogbGVmdDsgdmVydGljYW szOFdqX086 IHRvcDsnPlBhdGllbnQgTm NsKPs5M4GqIcy2DDTcvSfb AO8stACuPNihSo7slMfpyA usOW6nTDIb ckask763EjDvq0bgRMWeuL UfZHgjNCX2M77jw5K0HOTx KIXtRDF7dSW8oI6hyMjvie ogbGVmdDsg cjKktBkyOWbgTCnhS911FW RvcDsnPkJpcnRoIERhdGU6 NV49JK03kDYzl6D3tZL6G1 BhZGRpbmct jgpbxNL2CHFuRAXxsU73Ts 5viKngSn1hFJAbYFI5VMNr qPLkT4MktV5yBhDyGXSsNN ObX9ObhKAv HTvlX009FVvfMcM3QLInxj LzP5QaJXWoqXahBhX1b7T7 Qt8ZB7N1PK46MF29vSCko6 O8mGG5K1Xg BNYudjxejawtnQY6ADRlCM WouX25Ui2vaKnlBw5tNOJh LPB6DDZlfRLwJ8YfzL2qLv AjMDAwMDAw Y4HxhGUpEYktR565KDriNb L4YEFdxtJzC3DgLEQrnLoi FnW6z1K9Ti2WDIp2SX89YU 97qDMiz0O1 sHF9C2SiDMEuwvppuvjqhU D1OSSkMSRbvR33Sz5pdExf Bs3lQURlCEH0HGLcmOVzU7 AibS2dAlJz JXNiXVZhT6IkfYLgEByyY7 88TOyhSoF7XPSphnFmX8Fm IPSifEkpTpI8y3F7Iu5GTE LhZX58KSE4 sIT6BR21QU53X1PlIofdnM FibGU+PHRhYmxlIHdpZHRo RPktNPGjQmTbvAqdCI9xZo 9yZGVyLWNv iJhssATyIlKrz9opUYTkCV xaFJ6fxLbkX6MjaSL1JRHt m1v9Sw15U70kQ5SinHN+PG NbzGW6jFI1 mN1xGyWgEdC8PCabY315Jv LqaVGdCjjcg1eto9zitGe0 BiY5CMEvhoPszEjmWJP2w4 WqUn56N74s IHdpZHRoPSIxNSUiIHZhbG hfia5btF2rYx0+PGNvbCB3 uFR5lA3vNwGfQeY0NUayZ7 49InRvcCIv Octxn6uee3mgaYa8CwCcQT ChmlHirBemQGC5s6HcHa86 M3VepYqkm5OvXet0js34tJ Hfd3J0rKZ9 Z1TnLENksampnVGmzTflEN 9pMXDstcxwKMIvqY4mOYNh T2s8VeWqVjC4VDudP0Jmgn C0YFGccNBr HAzjNBZ9Y62mt2K2BFFzWS KeESF5yOS4eM5evWnshmrz bGVmdDsgdmVydGljYWwtYW tmG194GKMj aSjyMZJjzE0xQYMsfOHklA joSW4cSIJonmjuDeDDJ8tz KA9KQ3RWGVK7S1YwCug5CI WzqIzjOF5n lDGoSDtkRk1eoQtwqTnvCO 2yWUNmxoedJNThfQ7bFKHr uERwwLmwAI1mNZQnazgkx6 77ZrLjEZY1 YVTgcDPuZ6PqgB4qLyDwNR WeNSWkG2QwuBDyXKyiN509 RXdaPpL8GCExbbVcW5NgTK FsaWduOiB0 c4K4Pw9wIl3eWu6vHOg6FC 78LR58sTQwj5P3gGA2A8Pq VBMrmsiaipiyoDW4QCLhLB FbuT01kJFm SKogXp6qi7D1g678KTBaLJ RzxO90Nx2cnMzuLJJsjCWH nD5iyotoq6uiukqyOgQiZN PnUCv8ONs0 ALDihGudPrYkPXV2VpB2DI R3kKKziY8kzDtwfcgxiN5i Oyc+ShbsWOWoubN5S5UlSj b4EPGtrDxb PN8orNQnCUsoZv6krWndvL pyYI1cQNVeeompDQVkpC1y UNTpnEMixXyjAQ9eYSPgvq fsy557ZxRn FVL9DSFqpMMyF7HbtQ1lKz IpLLNsASAhM0TvjFWxHSjx K405IQytRrP7UXXwdkNcO7 FsLWFsaWdu SbO7j5J8Ol5YPE5fhZG4S0 SoQuu9JHMkkBohLD9mnNDs UUnvUw0ioJwrhRcoSL9gVX BpbjtwYWRk mH3iXMWusGLezZhqMR9dBT Qyjfknm806NtLkDAY2PUJb cOAkY3OsdU2wKhNyOYCcTB TqO5JavNPd NIjvG177GOvtEkI3CEUkzl PpV4MdJNHjtFlhVdZ0y9B0 Kb9JfRKoHAOaCO05UY22OU 37E0PxKbpt dGFibGU+PHRhYmxlIHdpZH XdGLbnDLTgEgFmfMdqIL1n Hz5nCMGkRQKkvKqerLCaOs Cwc4oxJGUh BVynSX3blLmqP6KxvHH3CN Utu8i3Uw49H83gY1DgjMH+ QKPscQR1fPH7iY0uIqOqLy S7MPymU798 VwGjwTBhMpwjf0ccr7uwfI h6IwKcQPWxwsNkjFbaLMQ4 u4DvJh75H69vURnsZAHxXH IyMCUiIHZh rSbkmn6giR0jIl2+PGNvbC Z0hXF6kZ6lXsPnHwS6RPgc B683LoOaySHeFkzfM41gV9 JvdXA+PHRy Fhg0BAUqdIqxJN3tiFNdPX vvRj9iWKY0OqPzMgEaYGyq U2AwBALtitspudsacOS8IL FzTZBuxT97 Tx6ocNphGq7gULNjPCT2OD UroOOeN4MqoA3nCmSgZXFf JKVkF1BieURcTPqkO783EX noOnL7SGAw jiWoB7MfATHxfSjfJzG4e1 Z7Me1XvWcltVDgUM6yPmYv WVe7A5RwQrc7ZKRmsBraQA 0ncGFkZGlu My0gzPllkXghGR3uHAXnky kbl008CsBiz6xnFXIaoXBm QOvnVPW0E26vr0J8PEDySE AzWWK6xNS6 bD1iiQngxibauWCcwZxitp LygKlsKUafMEwjC979OBPc kIhjErVOKgq6S8JeHxl3NW NmqXahFR0d cSXhGKjuFe1huFbkpJlgYO 9qBXYkavlfd536GgLrs3ox DKVynRYcNDivRHL7P37bo2 S9IUFyWZAw SML3oQA2zO7mqEfmvjasrP VmdDsgdmVydGljYWwtYWxp E928FEKaoGjbOo4NAgi2J1 ZvEms0GEHo oMsoVM4mnJReUKttSf5qpZ upvBucXS1iDSEtlzxhe824 BwQcf4dpVJGdkKWdUOezTR U6Z30ao0P3 TFHrZYTtXGN9mTY7uN7rcX lnbjogbGVmdDsgdmVydGlj TNaqXYruX209NDLnhSvkSi BheWVyOjwv dGQ+QV84mc41P0EiXaquFz x8OMEbVRJ0rMT0mU4fWKNm XHthc6V2sEK9H6OztjMllc 4qe8moBUBg ZTog (more content not included)... Normal [facility] BhCG Quanton 03-24-2022 HCG.beta subunit Qn 1 m[IU]/mL Normal 1-3 [facility] Comment on above: Result Comment: GEST ATIONAL AGE HCG RANGE (mIU/mL) NON- <1-3 0.2-1 WEEKS 5-50 1-2 WEEKS 50-500 2-3 WEEKS 100-5,000 3-4 WEEKS 500-10,000 4-5 WEEKS 1,000-50,000 5-6 WEEKS 10,000-100,000 6-8 WEEKS 15,000-200,000 8-12 WEEKS 10,000-100,000 Performed By: #### 2 [id number] #### [facility] [address] [place] [address] CHEMISTRYOrdered By: SYSTEM SYSTEM on 03-24-2022 HCG.beta subunit Qn 1 m[IU]/mL Normal 1 - 3 mIU/mL FTM C Remisol CNPNon 03-24-2022 CNPN Telephone ([facility]) PRINCESS CANTU ([id number]) 1995 F Date Time Provider Department 03/24/[address] [facility] During your visit today, we [...] Fully Assessed Reason for Visit: Bleeding With [01812] Primary Visit Diagnosis:Bleeding in early [O20.9] Order(s):HCG QUANTITATIVE [SQHCGQT] Order #: [id number] FUTURE Prescriptions as of 03/24/2022 - metroNIDAZOLE [...] Encounter Status:Closed by BRENDAN SOUZA on 03/24/22 [facility] Consent for Treatmenton Consent for Treatment [id number] 0CD:127 [facility] Physician Orderon 03-24-2022 Physician Order [id number] 0CD:127 [facility] CNPNon 03-19-2022 CNPN Telephone ([facility]) PRINCESS CANTU ([id number]) 1995 F Date Time Provider Department 03/19/22 [place] [facility] During your visit today, we [...] Status:Closed by MARY ONOFRE on 03/19/22 Normal [facility] Office Visit (Neuro-General) on 12-24-2021 Follow-up [...] bowel/bladder incontinence. She was taken to [facility] in [place]. She had lab work and a CT [...] DAILY. Vitals Vital Signs Recorded: 24Dec2021 11:32AM Wjcnhqbwhnv10.1 F Heart Rate54 Vtvcwjvn156 Fzzdasmxh57 Height5 ft 9 in Vuclyk152 lb 1.6 oz BMI Vrvvsrckto25.03 kg/m2 BSA Calculated2.11 Tobacco Useb) No Fall Screeninga) No falls within the last year O2 Rygmeasidj839, RA Physical Exam Constitutional: General appearance: no [...] Dec 24 2021 11:37AM EST (Author) Normal [employer] Tobacco Screening.on 022 Fall risk assessment a) [...] Known Drug Allergies Vitals Vital Signs Recorded: [id number] 01:08PM Temperature: 97 F Heart Rate: 70 [...] Nov 17 2021 1:34PM EST (Author) Normal [employer] Tobacco Screening.on 022 Adult depression screening assessment No [facility] Phone: Fall risk assessment a) No falls within the last year [facility] Phone: Tobacco use status CPHS b) No M P[facility] Phone: Bact Vag Amplificationon Bact Vag Amplification Positive Criticall y abnormal Negative for bacterial vaginosis [facility] Comment on above: Performed By: #### G CCT #### [facility] [address] [id number] CNOVon 09-09-2021 [facility]OV [facility] PRINCESS CANTU ([id number]) 1995 F Date Time Provider Department 09/09/21 10:[address] 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 Portions of this record were documented by the Button Sewer Hand. I, Brendan Blankenship, have reviewed this information as documented for accuracy and performed all elements of history taking, and edited the record as necessary. 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 [...] Order(s):MITCH / TRICHOMONAS AMPLIFICATION [SQCVTV] Order #: [id number] BACTERIAL VAGINOSIS AMPLIFICATION [SQBVAMP] Order #: [id number] GC/CHLAMYDIA DNA DET [SQGCCAMP] Order #: [id number] metroNIDAZOLE (FLAGYL) 500 mg tabletTake 1 tablet [...] Encounter Status:Closed (more content not included)... Normal [facility] Mitch Trich Amplon 022 Mitch glabrata RNA Negative Normal Negative [facility] Comment on above: Performed By: #### G CCT #### [facility] [address] [address] Mitch sp group RNA Negative Normal Negative [facility] Comment on above: Performed By: #### G CCT #### [address] [address] [place] [phone] Trichomonas RNA Negative Normal [facility] Comment on above: Performed By: #### G CCT #### [address] [address] [place] [phone] GC/Chlamydia Amplifon 2021 Chlamydia Amplif Negative Normal [facility] Comment on above: Performed By: #### G CCT #### [place] [phone] GC Amplification Negative Normal [facility] Comment on above: Performed By: #### G CCT #### [address] [place] [phone] GC/Chlam Amp Source Cervix Normal [facility] Comment on above: Performed By: #### G CCT #### [place] [phone] Bact Vag Amplificationon Bact Vag Amplification Negative Normal Negat ko for bacterial vaginosis [facility] Comment on above: Performed By: #### C VTV, BVAMP #### [facility] CLIA [id number] [address] [place] [address] [place] CNOVon 07-04-2021 CNOV Office Visit (OBGYCC ) PRINCESS CANTU ([id number]) [address] [facility] Date Time Provider Department 07/04/21 4:00 PM [place] [facility] During your visit today, we recorded the following information about you: Pulse Blood pressure Weight Height 74/minute 131/86 95.7 kg 1.727 m Last Period 06/07/21 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 APRN.REFORESTATION WORKER 07/04/2021 4:39 PM Signed Princess is [...] Ectopic0 Multiple0 Live Births0 Comment: 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 Some of these tests may be ordered or performed by your primary care doctor. Pap test screening The pap test loo (more content not included)... Normal [facility] Mitch Trich Amplon 021 Mitch glabrata RNA Negative Normal Negative [facility] Comment on above: Performed By: #### C VTV, BVAMP #### [facility] CLIA [id number] [address] [place] [address] [place] Mitch sp group RNA Negative Normal Negative [facility] Comment on above: Performed By: #### C VTV, BVAMP #### [facility] CLIA [id number] [facility] [place] [address] [place] Trichomonas RNA Negative Normal [facility] Comment on above: Performed By: #### C VTV, BVAMP #### [facility] CLIA [id number] [address] [place] [address] [place] GC/Chlamydia Amplifon 2020 Chlamydia Amplif Negative Normal [facility] Comment on above: Performed By: #### G CCT #### [facility] [employer] [address] [address] GC Amplification Negative Normal [facility] Comment on above: Performed By: #### G CCT #### [facility] [employer] [address] [address] GC/Chlam Amp Source Cervix Normal [facility] Comment on above: Performed By: #### G CCT #### [facility] [address] [place], [place] [address] Tobacco Screening.on 021 Fall risk assessment a) [...] trachomatis and Neisseria gonorrhoeae testing on specific ram-TZD-gwzgdzpo sample types (female urine samples) have been validated by [facility]. This laboratory is certified by CLIA [...] trachomatis and Neisseria gonorrhoeae testing on specific oqf-CGN-gblydhbz sample types (female urine samples) have been validated by [facility]. This laboratory is certified by CLIA to perform high complexity testing. Samples from all other sites are not validated for this method. TSHon 12-24-2020 TSH Qn 2.30 m[IU]/L Normal 0.44 - 3.98 [facility] Comment on above: Result Comment: TSH testing is performed using different testing methodology at [facility] than at other [facility]. Direct result comparisons should only be made within the same method. Performed By: #### T SH2 #### [address] [address] TSH - Thyroid Stimulating Ho ti, Serumon 12-24-2020 TSH Qn 2.30 m[IU]/L See Below [employer] Phone: Comment on above: Reference Range: 0.4 4 - 3.98 TSH testing is performed using different testing methodology at [facility] than at other [facility]. Direct result comparisons should only be made within the same method. Tobacco Screening.on 021 Fall risk assessment a) No falls within the last year [employer] Phone: Tobacco use status CPHS b) No M [employer] Phone: CBCon 08-14-2020 Erythrocyte distribution width (RBC) [Ratio] 13.2 % Normal 11.5 - 14.5 [facility] Comment on above: Performed By: #### C BC #### [address] [address] Hematocrit (Bld) [Volume fraction] 39.5 % Normal 36.0 - 46.0 [facility] Comment on above: Performed By: #### C BC #### [address] [address] Hemoglobin (Bld) [Mass/Vol] 13.0 g/dL Normal 12.0 - 16.0 [facility] Comment on above: Performed By: #### C BC #### [address] [address] MCHC (RBC) [Mass/Vol] 32.9 g/dL Normal 32.0 - 36.0 [facility] Comment on above: Performed By: #### C BC #### [address] [address] MCV (RBC) [Entitic vol] 91 fL Normal 80 - 100 [facility] Comment on above: Performed By: #### C BC #### [address] [address] NUCLEATED RBC 0.0 /100 WBC Normal 0.0 - 0.0 [facility] Comment on above: Performed By: #### C BC #### [address] [address] Platelets (Bld) [#/Vol] 235 10*3/uL Normal 150 - 450 [facility] Comment on above: Performed By: #### C BC #### [address] [address] RBC 4.33 x10E12/L Normal 4.00 - 5.20 [facility] Comment on above: Performed By: #### C BC #### [address] [address] WBC (Bld) [#/Vol] 5.8 10*3/uL Normal 4.4 - 11.3 [facility] Comment on above: Performed By: #### C BC #### [address] [address] COMPREHENSIVE PANELon 2020 Albumin [Mass/Vol] 4.7 g/dL Normal 3.4 - 5.0 [facility] Comment on above: Performed By: #### C MP #### [address] [address] ALP [Catalytic activity/Vol] 53 U/L Normal 33 - 110 [facility] Comment on above: Performed By: #### C MP #### [address] [address] ALT [Catalytic activity/Vol] 41 U/L Normal 7 - 45 [facility] Comment on above: Result Comment: Desiree ents treated with Sulfasalazine may generate falsely decreased results for ALT. Performed By: #### C MP #### [address] [address] Anion gap [Moles/Vol] 10 mmol/L Normal 10 - 20 [facility] Comment on above: Performed By: #### C MP #### [address] [address] AST [Catalytic activity/Vol] 27 U/L Normal 9 - 39 [facility] Comment on above: Performed By: #### C MP #### [address] [address] Bilirubin [Mass/Vol] 0.6 mg/dL Normal 0.0 - 1.2 [facility] Comment on above: Performed By: #### C MP #### [address] [address] Calcium [Mass/Vol] 9.5 mg/dL Normal 8.6 - 10.3 [facility] Comment on above: Performed By: #### C MP #### [address] [address] Chloride [Moles/Vol] 105 mmol/L Normal 98 - 107 [facility] Comment on above: Performed By: #### C MP #### [address] [address] Creatinine [Mass/Vol] 0.93 mg/dL Normal 0.50 - 1.05 [facility] Comment on above: Performed By: #### C MP #### [address] [address] GFR- AM. >60 Normal >60 [facility] Comment on above: Result Comment: CALC ULATIONS OF ESTIMATED GFR ARE PERFORMED USING THE MDRD STUDY EQUATION FOR THE IDMS-TRACEABLE CREATININE METHODS. CLIN CHEM 2007;53:766-72 Performed By: #### C MP #### [address] [address] GFR-NON AM. >60 Normal >60 [facility] Comment on above: Performed By: #### C MP #### [address] [address] Glucose [Mass/Vol] 94 mg/dL Normal 74 - 99 [facility] Comment on above: Performed By: #### C MP #### [address] [address] HCO3 (Bld) [Moles/Vol] 28 mmol/L Normal 21 - 32 [facility] Comment on above: Performed By: #### C MP #### [address] [place] [address] Potassium [Moles/Vol] 4.4 mmol/L Normal 3.5 - 5.3 [facility] Comment on above: Performed By: #### C MP #### [address] [place] [place] [address] Protein [Mass/Vol] 7.3 g/dL Normal 6.4 - 8.2 [facility] Comment on above: Performed By: #### C MP #### [address] [place] [address] Sodium [Moles/Vol] 139 mmol/L Normal 136 - 145 [facility] Comment on above: Performed By: #### C MP #### [address] [place] [address] Urea nitrogen [Mass/Vol] 13 mg/dL Normal 6 - 23 [facility] Comment on above: Performed By: #### C MP #### [address] [place] [place] [address] Hematologyon 08-14-2020 Hematocrit (Bld) [Volume fraction] 39.5 % See Below -Neurolog -[facility] DO Work Phone: Comment on above: Reference Range: 36. 0 - 46.0 Hemoglobin (Bld) [Mass/Vol] 13.0 g/dL See Below -Neurolog -[facility] Work Phone: Comment on above: Reference Range: 12. 0 - 16.0 MCV (RBC) [Entitic vol] 91 fL 80 - 100 M P-Neurolog [facility] Work Phone: Platelets (Bld) [#/Vol] 235 {x10E9/L} 150 - 450 -Neurolog y-[facility] Work Phone: RBC (Bld) [#/Vol] 4.33 {x10E12/L} See Below [facility] Work Phone: Comment on above: Reference Range: 4.0 0 - 5.20 WBC (Bld) [#/Vol] 5.8 {x10E9/L} 4.4 - 11.3 MP-N eurolog y-[place] [facility] DO Work Phone: WBC (Bld) [#/Vol] 0.0 {/100_WBC} 0.0 - 0.0 MP- Neurolog y-[place] [facility] DO Work Phone: LAMOTRIGINE- LAMICTALon - LAMOTRIGINE- LAMICTAL 6.4 ug/mL Normal 2.5 - 15.0 [facility] Comment on above: Performed By: #### L AMOT #### [facility] [address] [place] [address] Lamotrigine Level, Serumon 0 08-14-2020 Lamotrigine [Mass/Vol] 6.4 ug/mL 2.5 - 15.0 MP -Neurolog y-[place] [facility] DO Work Phone: Metabolic Panelon 08-14-2020 ALP [Catalytic activity/Vol] 53 U/L 33 - 110 MP-Neurolog y-[place] [facility] DO Work Phone: Anion gap [Moles/Vol] 10 mmol/L 10 - 20 MP- Neurolog y-[place] [facility] DO Work Phone: Bilirubin [Mass/Vol] 0.6 mg/dL 0.0 - 1.2 MP-N eurolog y-[place] [facility] DO Work Phone: Calcium [Mass/Vol] 9.5 mg/dL 8.6 - 10.3 MP-Jozef rolog y-[place] [facility] DO Work Phone: Chloride [Moles/Vol] 105 mmol/L 98 - 107 MP-N eurolog y-[place] [facility] DO Work Phone: CO2 [Moles/Vol] 28 mmol/L 21 - 32 MP-Neurol og y-[place] [facility] DO Work Phone: Creatinine [Mass/Vol] 0.93 mg/dL See Below - [facility] DO Work Phone: Comment on above: Reference Range: 0.5 0 - 1.05 Glucose [Mass/Vol] 94 mg/dL 74 - 99 -[facility] DO Work Phone: Potassium [Moles/Vol] 4.4 mmol/L 3.5 - 5.3 - [facility] DO Work Phone: Protein [Mass/Vol] 7.3 g/dL 6.4 - 8.2 -[facility] DO Work Phone: Sodium [Moles/Vol] 139 mmol/L 136 - 145 -[facility] DO Work Phone: Urea nitrogen [Mass/Vol] 13 mg/dL 6 - 23 -[facility] DO Work Phone: Otheron 08-14-2020 Albumin BCP dye [Mass/Vol] 4.7 g/dL 3.4 - 5.0 -[facility] DO Work Phone: ALT With P-5'-P [Catalytic activity/Vol] 41 U/L 7 - 45 [facility] DO Work Phone: Comment on above: Patients treated wit h Sulfasalazine may generate falsely decreased results for ALT. AST With P-5'-P [Catalytic activity/Vol] 27 U/L 9 - 39 -[facility] DO Work Phone: Erythrocyte distribution width (RBC) [Ratio] 13.2 % See Below [facility] DO Work Phone: Comment on above: Reference Range: 11. 5 - 14.5 MCHC (RBC) [Mass/Vol] 32.9 g/dL See Below - Neurolog Yolanda MCKENNA DO Work Phone: Comment [...] areas of abnormal enhancement after contrast administration. IntelliGeneScanCOOPER COUNTY MEMORIAL HOSPITALQingKe EXAMINATION: MRI BRA IN W WO CONTRAST [...] The calvarium and soft tissues are unremarkable. [facility] [place] [facility] Center[facility] BridgesCOOPER COUNTY MEMORIAL HOSPITALOcean Executive [place], [place] Incoming Radiant Results From [employer] - 05/09/2020 3:02 PM EDT EXAMINATION: MRI [...] areas of abnormal enhancement after contrast administration. [place], [place] MRI BRAIN W WO CONTRAST EXAMINATION: [...] David Winter MD 05/09/20 Final result Normal [facility] CBC With Platelet and Differ entialon 04-19-2020 Basophils (Bld) [#/Vol] 0.1 10*3/uL Normal 0.0-0.2 [facility] Comment on above: Performed By: #### C BCWD #### [facility] [address] [place] [address] Basophils/100 WBC (Bld) 0.4 % Normal [facility] Comment on above: Performed By: #### C BCWD #### [facility] [address] [place] [address] Eosinophils (Bld) [#/Vol] 0.5 10*3/uL Normal 0.0-0.7 [facility] Comment on above: Performed By: #### C BCWD #### [facility] [address] [place] [address] Eosinophils/100 WBC (Bld) 4.2 % Normal [facility] Comment on above: Performed By: #### C BCWD #### [facility] [address] [place] [address] Erythrocyte distribution width (RBC) [Ratio] 12.5 % Normal 11.5-14.5 [facility] Comment on above: Performed By: #### C BCWD #### [facility] [address] [place] [address] Hematocrit (Bld) [Volume fraction] 39.4 % Normal 37.0-47.0 [facility] Comment on above: Performed By: #### C BCWD #### [facility] [address] [place] [address] Hemoglobin (Bld) [Mass/Vol] 13.3 g/dL Normal 12.0-16.0 [facility] Comment on above: Performed By: #### C BCWD #### [facility] [address] [place] [address] Lymphocytes (Bld) [#/Vol] 3.2 10*3/uL Normal 1.0-4.8 [facility] Comment on above: Performed By: #### C BCWD #### [facility] [address] [place] [address] Lymphocytes/100 WBC (Bld) 26.9 % Normal [facility] Comment on above: Performed By: #### C BCWD #### [facility] [address] [place] [address] MCH (RBC) [Entitic mass] 29.8 pg Normal 27.0-31.3 [facility] Comment on above: Performed By: #### C BCWD #### [facility] [address] [place] [address] MCHC (RBC) [Mass/Vol] 33.8 % Normal 33.0-37.0 [facility] Comment on above: Performed By: #### C BCWD #### [facility] [address] [place] [address] MCV (RBC) [Entitic vol] 88.4 fL Normal 82.0-100.0 [facility] Comment on above: Performed By: #### C BCWD #### [facility] [address] [place] [address] Monocytes (Bld) [#/Vol] 0.8 10*3/uL Normal 0.2-0.8 [facility] Comment on above: Performed By: #### C BCWD #### [facility] [address] [place] [address] Monocytes/100 WBC (Bld) 6.8 % Normal [facility] Comment on above: Performed By: #### C BCWD #### [facility] [address] [place] [address] Neutrophils (Bld) [#/Vol] 7.3 10*3/uL Critically high 1.4-6.5 [facility] Comment on above: Performed By: #### C BCWD #### [facility] [address] [place] [address] Neutrophils/100 WBC (Bld) 61.7 % Normal [facility] Comment on above: Performed By: #### C BCWD #### [facility] [address] [place] [address] Platelets (Bld) [#/Vol] 314 10*3/uL Normal 130-400 [facility] Comment on above: Performed By: #### C BCWD #### [facility] [address] [place] [address] RBC (Bld) [#/Vol] 4.45 10*6/uL Normal 4.20-5.40 [facility] Comment on above: Performed By: #### C BCWD #### [facility] [address] [place] [address] WBC (Bld) [#/Vol] 11.9 10*3/uL Critically high 4.8-10.8 [facility] Comment on above: Performed By: #### C BCWD #### [facility] [address] [place] [address] CT HEAD WO CONTRASTon 2019 CT HEAD [...] De Jesus DO 04/19/20 Final result Normal [facility] Comprehensive Metabolic Pane crescencio 04-19-2020 Albumin [Mass/Vol] 4.9 g/dL Critically high 3.5-4.6 M [facility] Comment on above: Performed By: #### C MP #### [facility] [address] [place] [address] ALP [Catalytic activity/Vol] 40 U/L Normal 40-130 [facility] Comment on above: Performed By: #### C MP #### [facility] [address] [place] [address] ALT [Catalytic activity/Vol] 17 U/L Normal 0-33 [facility] Comment on above: Performed By: #### C MP #### [facility] [address] [place] [address] Anion gap [Moles/Vol] 14 mmol/L Normal 9-15 [facility] Comment on above: Performed By: #### C MP #### [facility] [address] [place] [address] AST [Catalytic activity/Vol] 17 U/L Normal 0-35 [facility] Comment on above: Performed By: #### C MP #### [facility] [address] [place] [address] Bilirubin [Mass/Vol] mg/dL Normal 0.2-0.7 [facility] Comment on above: Performed By: #### C MP #### [facility] [address] [place] [address] Calcium [Mass/Vol] 10.0 mg/dL Critically high 8.5-9.9 [facility] [place] [facility] Comment on above: Performed By: #### C MP #### [facility] [address] [place] [address] Chloride [Moles/Vol] 101 mmol/L Normal 95-107 [facility] Comment on above: Performed By: #### C MP #### [facility] [address] [place] [address] CO2 [Moles/Vol] 24 mmol/L Normal 20-31 [facility] Comment on above: Performed By: #### C MP #### [facility] [address] [place] [address] Creatinine [Mass/Vol] 0.87 mg/dL Normal 0.50-0.90 [facility] Comment on above: Performed By: #### C MP #### [facility] [address] [place] [address] GFR/1.73 sq M predicted among blacks MDRD (S/P/Bld) [Vol rate/Area] mL/min/{1.73_m2} Normal >60 [facility] Comment on above: Result Comment: >60 mL/min/1.73m2 EGFR, calc. for ages 18 and older using the MDRD formula (not corrected for weight), is valid for stable renal function. Performed By: #### C MP #### [facility] [address] [place] [address] GFR/1.73 sq M.predicted MDRD (S/P/Bld) [Vol rate/Area] mL/min/{1.73_m2} Normal >60 [facility] Comment on above: Result Comment: >60 mL/min/1.73m2 EGFR, calc. for ages 18 and older using the MDRD formula (not corrected for weight), is valid for stable renal function. Performed By: #### C MP #### [facility] [address] [place] [address] Globulin (S) [Mass/Vol] 3.1 g/dL Normal 2.3-3.5 M [facility] Comment on above: Performed By: #### C MP #### [facility] [address] [place] [address] Glucose [Mass/Vol] 94 mg/dL Normal 70-99 [facility] Comment on above: Performed By: #### C MP #### [facility] [address] [place] [address] Potassium [Moles/Vol] 3.9 mmol/L Normal 3.4-4.9 [facility] Comment on above: Performed By: #### C MP #### [facility] [address] [place] [address] Protein [Mass/Vol] 8.0 g/dL Normal 6.3-8.0 [facility] Comment on above: Performed By: #### C MP #### [facility] [address] [place] [address] Sodium [Moles/Vol] 139 mmol/L Normal 135-144 [facility] Comment on above: Performed By: #### C MP #### [facility] [address] [place] [address] Urea nitrogen [Mass/Vol] 12 mg/dL Normal 6-20 [facility] Comment on above: Performed By: #### C MP #### [facility] [address] [place] [address] Lactic Acidon 04-19-2020 Lactate [Moles/Vol] 1.8 mmol/L Normal 0.5-2.2 [facility] Comment on above: Performed By: #### L ACID #### [facility] [address] [place] [address] Prolactinon 04-19-2020 Prolactin 160.8 ng/mL Normal [facility] Comment on above: Result Comment: Defa ult Normal Ranges Female Male Non: 4.8-23.3 4.0-15.2 Performed By: #### P JAISON #### [facility] [address] [place] [address] Serum HCG Qualitativeon HCG.beta subunit Qn Negative Normal [facility] Comment on above: Performed By: #### S HCG #### [facility] [address] [place] [address] Urinalysis, reflex to cultur emily 04-19-2020 Urine Reflexed to Culture Not Indicated Normal [facility] Comment on above: Performed By: #### U AR #### [facility] [address] [place] [address] Bilirubin Ql (U) Negative Normal Negative [facility] Comment on above: Performed By: #### U AR #### [facility] [address] [place] [address] Clarity (U) Clear Normal Clear [facility] Comment on above: Performed By: #### U AR #### [facility] [address] [place] [address] Color (U) Yellow Normal Straw/Hood [facility] Comment on above: Performed By: #### U AR #### [facility] [address] [place] [address] Glucose Ql (U) Negative Normal Negative [facility] Comment on above: Performed By: #### U AR #### [facility] [address] [place] [address] Hemoglobin Ql (U) Trace-intact Normal Negative [facility] Comment on above: Performed By: #### U AR #### [facility] [address] [place] [address] Ketones Ql (U) Negative Normal Negative [facility] Comment on above: Performed By: #### U AR #### [facility] [address] [place] [address] Leukocyte esterase Test strip Ql (U) Negative Normal Negative [facility] Comment on above: Performed By: #### U AR #### [facility] [address] [place] [address] Nitrite Ql (U) Negative Normal Negative [facility] Comment on above: Performed By: #### U AR #### [facility] [address] [place] [address] pH (U) 6.0 [pH] Normal 5.0-9.0 [facility] Comment on above: Performed By: #### U AR #### [facility] [address] [place] [address] Protein Ql (U) Negative Normal Negative [facility] Comment on above: Performed By: #### U AR #### [facility] [address] [place] [address] Specific gravity (U) [Rel density] 1.020 Normal 1.005-1.03 [facility] Comment on above: Performed By: #### U AR #### [facility] [address] [place] [address] Urobilinogen Qn (U) 0.2 {Alan'U}/dL Normal < 2.0 [facility] Comment on above: Performed By: #### U AR #### [facility] [address] [place] [address] Urine Microscopicon 04-19-20 20 Epithelial cells LM Ql (Urine sed) 0-2 Normal [facility] Comment on above: Performed By: #### U ARELY #### [facility] [address] [place] [address] RBC (U) [#/Vol] 0-2 Normal 0-2 [facility] Comment on above: Performed By: #### U ARELY #### [facility] [address] [place] [address] WBC (U) [#/Vol] 0-2 Normal 0-5 [facility] Comment on above: Performed By: #### U ARELY #### [facility] [address] [place] [address] CBC Auto Differentialon 10-0 Basophils (Bld) [#/Vol] 0.1 10*3/uL 0 - 0.2 K/u L [facility], [place] Basophils/100 WBC (Bld) 0.4 % M [facility], [place] Eosinophils (Bld) [#/Vol] 0.5 10*3/uL 0 - 0.7 K/uL [place] Eosinophils/100 WBC (Bld) 4.2 % [place] Erythrocyte distribution width (RBC) [Ratio] 12.5 % 11.5 - 14.5 % [place] Hematocrit (Bld) [Volume fraction] 39.4 % 37 - 47 % [place] Hemoglobin (Bld) [Mass/Vol] 13.3 g/dL 12 - 16 g/dL [place] Interpretation and review of laboratory results Abnormal [place] Lymphocytes (Bld) [#/Vol] 3.2 10*3/uL 1 - 4.8 K/uL [place] Lymphocytes/100 WBC (Bld) 26.9 % [place] MCH (RBC) [Entitic mass] 29.8 pg 27 - 31.3 pg [place] MCHC (RBC) [Mass/Vol] 33.8 % 33 - 37 % [place] MCV (RBC) [Entitic vol] 88.4 fL 82 - 100 fL [place] Monocytes (Bld) [#/Vol] 0.8 10*3/uL 0.2 - 0.8 K /uL [place] Monocytes/100 WBC (Bld) 6.8 % M [place], [place] Neutrophils Absolute 7.3 K/uL High 1.4 - 6.5 K/uL [place] Neutrophils/100 WBC (Bld) 61.7 % [place] Platelets (Bld) [#/Vol] 314 10*3/uL 130 - 400 K /uL [place] RBC (Bld) [#/Vol] 4.45 10*6/uL [place] WBC (Bld) [#/Vol] 11.9 10*3/uL High 4.8 - 10.8 K/uL [place] Comprehensive Metabolic Pane crescencio 04-18-2020 Albumin [Mass/Vol] 4.9 g/dL High 3.5 - 4.6 g/dL [place] ALP [Catalytic activity/Vol] 40 U/L 40 - 130 U/L [place] ALT [Catalytic activity/Vol] 17 U/L 0 - 33 U/L [place] Anion gap [Moles/Vol] 14 mmol/L [place] AST [Catalytic activity/Vol] 17 U/L 0 - 35 U/L [place] Bilirubin Ql (U) <0.2 0.2 - 0.7 mg/dL [place] Calcium [Mass/Vol] 10.0 mg/dL High 8.5 - 9.9 mg/dL [place] Chloride [Moles/Vol] 101 mmol/L [place] CO2 [Moles/Vol] 24 mmol/L [place] Creatinine [Mass/Vol] 0.87 mg/dL 0.5 - 0.9 mg/dL [place] GFR >60.0 >60 [place] Comment on above: >60 mL/min/1.73m2 EG FR, calc. for ages 18 and older using the MDRD formula (not corrected for weight), is valid for stable renal function. GFR Non- >60.0 >60 [place] Comment on above: >60 mL/min/1.73m2 EG FR, calc. for ages 18 and older using the MDRD formula (not corrected for weight), is valid for stable renal function. Globulin (S) [Mass/Vol] 3.1 g/dL 2.3 - 3.5 g/ dL [place] Glucose [Mass/Vol] 94 mg/dL 70 - 99 mg/dL [place] Interpretation and review of laboratory results Abnormal [place] Potassium [Moles/Vol] 3.9 mmol/L [place] Protein [Mass/Vol] 8.0 g/dL 6.3 - 8 g/dL [place] Sodium [Moles/Vol] 139 mmol/L [place] Urea nitrogen [Mass/Vol] 12 mg/dL 6 - 20 mg/dL [place] HCG Qualitative, Serumon hCG Qual Negative [place] Lactic Acid, Plasmaon 2019 Lactate [Moles/Vol] 1.8 mmol/L 0.5 - 2. 2 mmol/L [place] Microscopic Urinalysison Epithelial Cells, UA 0-2 /HPF [place] RBC (U) [#/Vol] 0-2 [place] WBC, UA 0-2 [place] Urine Reflex to Cultureon Bilirubin Urine Negative Negative [place] Blood, Urine Trace-intact Negative [place] Clarity, UA Clear Clear [place] Color, UA Yellow Straw/Yellow [place] Glucose, Ur Negative Negative mg/dL [place] Ketones Ql (U) Negative Negative mg/dL [place] Leukocyte esterase Test strip Ql (U) Negative Negative [place] Nitrite, Urine Negative Negative [place] pH, UA 6.0 [place] Protein (U) [Mass/Vol] Negative Negative mg/d L [place] Specific Hubbell, UA 1.020 [place] Urine Reflex to Culture Not Indicated [place] Urobilinogen, Urine 0.2 <2.0 E.U./dL [place] ECHOCARDIOGRAPHY REPORT (HL) on 05-10-2017 ECHOCARDIOGRAPHY REPORT (HL) PRINCESS CANTU [id number] [id number] VASCULAR LABReferring: Koffi Uriarte A.Reading: CURTIS GARCIA [...] 4 CH 16.1 cm2LA Volume Indexed 21.05 ml/l5Whfomgtrr/Systoli c FunctionMV E-wave Vmax 0.884 m/secMV deceleration time 193 msecMV A-wave Vmax 0.494 m/secLV septal e' Vmax 0.115 m/secLV lateral e' Vmax 0.189 m/secLV E:e' septal ratio 7.7 ratio [facility] PRINCESS CANTU [id number] [place] [address] [id number] 93Jackie Uriarte MDECHOCARDIOGRAPHY REPORTLV E:e' lateral ratio [...] structure. There is no evidence ofpulmonic regurgitation. [facility] [id number] [place] [address] [id number] 93[facility] HospitalJackie roper MDECHOCARDIOGRAPHY REPORTPericardium:Ther e is no pericardial [...] normal echocardiogram.PARAS CHOW05/10/2017 10:26:53 [facility] PRINCESS CANTU [id number] [place] [address] [id number] 93Jackie roper MDECHOCARDIOGRAPHY REPORT Normal [facility] BASIC METABOLIC PANELon 04-18 Anion gap 10 mmol/L Normal 6-18 [facility] Comment on above: Order Comment: Is pa tient fasting? YES Performed By: #### L BMP, LGFRP ####[facility] [id number] [place] [address] Calcium 9.6 mg/dL Normal 8.6-10.3 [facility] Comment on above: Order Comment: Is pa tient fasting? YES Performed By: #### L BMP, LGFRP ####[facility] [id number] [place] [address] Chloride 101 mmol/L Normal 98-107 [facility] Comment on above: Order Comment: Is pa tient fasting? YES Performed By: #### L BMP, LGFRP ####[facility] [id number] [place] [address] CO2 27 mmol/L Normal 21-32 [facility] Comment on above: Order Comment: Is pa tient fasting? YES Performed By: #### L BMP, LGFRP ####[facility] [id number] [place] [address] Creatinine 0.74 mg/dL Normal 0.5-1.05 [facility] Comment on above: Order Comment: Is pa tient fasting? YES Performed By: #### L BMP, LGFRP ####[facility] [address]qm[address]huh75192 [place] [address] Glucose mass conc 82 mg/dL Normal 74-99 [facility] Comment on above: Order Comment: Is pa tient fasting? YES Performed By: #### L BMP, LGFRP ####[facility] T[address]qzaw37[address] [place] [address] Potassium molar conc 4.1 mmol/L Normal 3.5-5.3 [facility] Comment on above: Order Comment: Is pa tient fasting? YES Performed By: #### L BMP, LGFRP ####[facility] [id number] [place] [address] Sodium 134 mmol/L Low 136-145 [facility] Comment on above: Order Comment: Is pa tient fasting? YES Performed By: #### L BMP, LGFRP ####[facility] [id number] [place] [address] Urea nitrogen 14 mg/dL Normal 6-23 [facility] Comment on above: Order Comment: Is pa tient fasting? YES Performed By: #### L BMP, LGFRP ####[facility] [id number] [place], [place] [id number] CBC AUTOon 05-04-2017 Erythrocyte distribution width Auto Ratio (RBC) 12.8 % Normal 11.5-14.5 [facility] Comment on above: Performed By: #### L CBC ####[place] [address] Erythrocytes (RBC) 4.65 10*6/uL Normal 3.5-5.5 [facility] Comment on above: Performed By: #### L CBC ####[place] [address] Hematocrit (HCT) 41.1 % Normal 36.0-48.0 [facility] Comment on above: Performed By: #### L CBC ####[place] [address] Hemoglobin mass conc (Bld) 13.8 g/dL Normal 12.0-15.0 [facility] Comment on above: Performed By: #### L CBC ####[place] [address] MCH 29.7 pg Normal 25.4-34.6 [facility] Comment on above: Performed By: #### L CBC ####[facility] [id number] [place], [place] [id number] MCHC mass conc (RBC) 33.6 g/dL Normal 30.0-36.0 [facility] Comment on above: Performed By: #### L CBC ####[facility] [address] [place], [place] [id number] MCV 88.4 fL Normal 79.0-98.0 [facility] Comment on above: Performed By: #### L CBC ####[facility] [place], [place] [id number] Platelet mean volume (PMV) 9.3 fL Normal 8.4-11.9 [facility] Comment on above: Performed By: #### L CBC ####[place] [address] Platelets 277 10*3/uL Normal 140-440 [facility] Comment on above: Performed By: #### L CBC ####[facility] [id number] [place] [address] WBC (Leukocytes) 6.1 10*3/uL Normal 3.9-11.0 [facility] Comment on above: Performed By: #### L CBC ####[facility] Bydmmmftdh09521 [place] [address] GLOMERULAR FILTRATION RATE E STon 05-04-2017 eGFR (non-black) mL/min/{1.73_m2} Normal > 60 [facility] Comment on above: Order Comment: Is pa tient fasting? YES Performed By: #### L BMP, LGFRP ####[facility] [id number] [place] [address] IF AMER > 90 Normal > 60 [facility] Comment on above: Order Comment: Is pa tient fasting? YES Result Comment: Effe ctive 12/12/14:CKD-EPI equation / based on IDMS traceable creatinine.Continue to use the CREAT CLR-DOSE ([place]-Gault)value for determining medication dose. Performed By: #### L BMP, LGFRP ####[facility] [id number] [place] [address] Vital Signs Date Time Vital Sign Value Performing Clinician Yael murguia 07-31-2022 10:54-0500 Body height 175.26 cm Koffi Rosas [employer] Work Phone: [employer] Work Phone: 07-31-2022 10:54-0500 Body mass index (BMI) [Ratio] 31.01 kg/m2 Koffi Rosas [employer] Work Phone: [employer] Work Phone: 07-31-2022 10:54-0500 Body surface area Derived from formula 2.11 m2 Koffi Clementeson Work Phone: [employer] Work Phone: 07-31-2022 10:54-0500 Body temperature 97.6 [degF] Koffi Uriarte Work Phone: ZY-IAUT-[place] Work Phone: 07-31-2022 10:54-0500 Body weight 95.26 kg Koffi Uriarte Work Phone: AL-TCTP-[place]zjw [place] Work Phone: 07-31-2022 10:54-0500 Diastolic blood pressure 87 mm[Hg] Koffi Uriarte Work Phone: VB-TVOE-[place]ax [place] Work Phone: 07-31-2022 10:54-0500 Heart rate 76 /min Koffi Uriarte Work Phone: GU-KJRO-Vyfm [place] Work Phone: 07-31-2022 10:54-0500 Respiratory rate 18 /min Koffi Uriarte Work Phone: NN-AOQQ-Mpri [place] Work Phone: 07-31-2022 10:54-0500 Systolic blood pressure 121 mm[Hg] Koffi Uriarte Work Phone: DG-NGZZ-[place]wmo [place] Work Phone: 12-24-2021 11:32-0400 Body height 175.26 cm Koffi Uriarte Work Phone: XV-Srltjadmn-[place]em [place] [facility] DO Work Phone: 12-24-2021 11:32-0400 Body mass index (BMI) [Ratio] 31.03 kg/m2 Koffi Uriarte Work Phone: ZS-Eeyxbjqyg-Iqhq [place] [facility] DO Work Phone: 12-24-2021 11:32-0400 Body surface area Derived from formula 2.11 m2 Koffi Uriarte Work Phone: BI-Lzrggirob-Uihv [place] S[facility] DO Work Phone: 12-24-2021 11:32-0400 Body temperature 97.1 [degF] Koffi Uriarte Work Phone: [facility] DO Work Phone: 12-24-2021 11:32-0400 Body weight 95.3 kg Koffi Uriarte Work Phone: [facility] DO Work Phone: 12-24-2021 11:32-0400 Diastolic blood pressure 76 mm[Hg] Koffi Uriarte Work Phone: [facility] DO Work Phone: 12-24-2021 11:32-0400 Heart rate 54 /min Koffi Uriarte Work Phone: [facility] DO Work Phone: 12-24-2021 11:32-0400 SaO2% (BldA) [Mass fraction] 100 % Koffi Uriarte Work Phone: [facility] DO Work Phone: 12-24-2021 11:32-0400 Systolic blood pressure 114 mm[Hg] Koffi Uriarte Work Phone: [facility] DO Work Phone: 11-17-2021 13:08-0400 Body height 172.72 cm Koffi Uriarte Work Phone: [facility] Work Phone: 11-17-2021 13:08-0400 Body mass index (BMI) [Ratio] 32.39 kg/m2 Koffi Uriarte Work Phone: DG-LRVO-[place]b [place] Work Phone: 11-17-2021 13:08-0400 Body surface area Derived from formula 2.1 m2 Koffi Uriarte Work Phone: EI-JGPM-Cgmq [place] Work Phone: 11-17-2021 13:08-0400 Body temperature 97 [degF] Koffi Uriarte Work Phone: EM-PSGO-Ldsb [place] Work Phone: 11-17-2021 13:08-0400 Body weight 96.62 kg Koffi Uriarte Work Phone: OI-ULEZ-Tzzu [place] Work Phone: 11-17-2021 13:08-0400 Diastolic blood pressure 84 mm[Hg] Koffi Uriarte Work Phone: XR-ZHLX-Njhd [place] Work Phone: 11-17-2021 13:08-0400 Heart rate 70 /min Koffi Uriarte Work Phone: ZY-DEHQ-[place]vuo [place] Work Phone: 11-17-2021 13:08-0400 Respiratory rate 18 /min Koffi Uriarte Work Phone: ED-ZQFL-Hfau [place] Work Phone: 11-17-2021 13:08-0400 SaO2% (BldA) [Mass fraction] 96 % Koffi Uriarte Work Phone: KV-ORTF-Njsg [place] Work Phone: 11-17-2021 13:08-0400 Systolic blood pressure 126 mm[Hg] Koffi Uriarte Work Phone: FV-WGXN-Ixft [place] Work Phone: 06-25-2021 10:54-0500 Body height 172.72 cm Koffi Uriarte Work Phone: DB-Lytzjmlhu-Vbhe [place] [facility] DO Work Phone: 06-25-2021 10:54-0500 Body mass index (BMI) [Ratio] 32.08 kg/m2 Koffi Uriarte Work Phone: [facility] DO Work Phone: 06-25-2021 10:54-0500 Body surface area Derived from formula 2.09 m2 Koffi Uriarte Work Phone: [facility] DO Work Phone: 06-25-2021 10:54-0500 Body temperature 97.1 [degF] Koffi Uriarte Work Phone: [facility] DO Work Phone: 06-25-2021 10:54-0500 Body weight 95.71 kg Koffi Uriarte Work Phone: [facility] DO Work Phone: 06-25-2021 10:54-0500 Diastolic blood pressure 62 mm[Hg] Koffi Uriarte Work Phone: [facility] DO Work Phone: 06-25-2021 10:54-0500 Heart rate 67 /min Koffi Uriarte Work Phone: [facility] DO Work Phone: 06-25-2021 10:54-0500 Respiratory rate 18 /min Koffi Uriarte Work Phone: [facility] DO Work Phone: 06-25-2021 10:54-0500 SaO2% (BldA) [Mass fraction] 99 % Koffi Uriarte Work Phone: [facility] DO Work Phone: 06-25-2021 10:54-0500 Systolic blood pressure 131 mm[Hg] Koffi Uriarte Work Phone: [facility] DO Work Phone: 05-20-2021 15:59-0400 Body height 172.72 cm Koffi Uriarte Work Phone: PM-SYVZ-[place]yo [place] Work Phone: 05-20-2021 15:59-0400 Body mass index (BMI) [Ratio] 31.93 kg/m2 Koffi Uriarte Work Phone: KS-SWEW-Cdoo [place] Work Phone: 05-20-2021 15:59-0400 Body surface area Derived from formula 2.09 m2 Koffi Uriarte Work Phone: VC-KKSN-Xcum [place] Work Phone: 05-20-2021 15:59-0400 Body temperature 98.1 [degF] Koffi Uriarte Work Phone: FD-ATKW-Qrdh [place] Work Phone: 05-20-2021 15:59-0400 Body weight 95.26 kg Koffi Uriarte Work Phone: HZ-OCLF-Kmhj [place] Work Phone: 05-20-2021 15:59-0400 Diastolic blood pressure 82 mm[Hg] Koffi Uriarte Work Phone: NW-EROE-Ufeb [place] Work Phone: 05-20-2021 15:59-0400 Heart rate 72 /min Koffi Uriarte Work Phone: SB-XSIQ-Sbwd [place] Work Phone: 05-20-2021 15:59-0400 Respiratory rate 16 /min Koffi Uriarte Work Phone: AF-ETAK-Ezzt [place] Work Phone: 05-20-2021 15:59-0400 Systolic blood pressure 122 mm[Hg] Koffi Uriarte Work Phone: mp-WSPC[facility] Work Phone: 12-24-2020 14:45-0400 Body height 172.72 cm Koffi Uriarte Work Phone: FV-WZJW-[place]fo [place] Work Phone: 12-24-2020 14:45-0400 Body mass index (BMI) [Ratio] 30.71 kg/m2 Koffi Uriarte Work Phone: KI-BUZV-Xdwa [place] Work Phone: 12-24-2020 14:45-0400 Body surface area Derived from formula 2.05 m2 Koffi Uriarte Work Phone: UI-YVAL-Vuph [place] Work Phone: 12-24-2020 14:45-0400 Body temperature 97.8 [degF] Koffi Uriarte Work Phone: TH-AEZI-Jrmf [place] Work Phone: 12-24-2020 14:45-0400 Body weight 91.63 kg Koffi Uriarte Work Phone: QE-YXXG-Pgni [place] Work Phone: 12-24-2020 12:59-0400 Body height 172.72 cm Koffi Uriarte Work Phone: RS-MOIM-Aufv [place] Work Phone: 12-24-2020 12:59-0400 Body mass index (BMI) [Ratio] 30.71 kg/m2 Koffi Uriarte Work Phone: SC-GKQL-[place] Work Phone: 12-24-2020 12:59-0400 Body surface area Derived from formula 2.05 m2 Koffi Clementeson Work Phone: BM-PQUJ-Icvx [place] Work Phone: 12-24-2020 12:59-0400 Body temperature 98.2 [degF] Koffi Uriarte Work Phone: PE-KJGN-Uzsl [place] Work Phone: 12-24-2020 12:59-0400 Body weight 91.63 kg Koffi Uriarte Work Phone: RY-YKLV-Sptk [place] Work Phone: 12-24-2020 12:59-0400 Diastolic blood pressure 90 mm[Hg] Koffi Uriarte Work Phone: XA-MCWX-Jwph [place] Work Phone: 12-24-2020 12:59-0400 Heart rate 75 /min Koffi Uriarte Work Phone: BB-SOPA-Zuyc [place] Work Phone: 12-24-2020 12:59-0400 Respiratory rate 16 /min Koffi Uriarte Work Phone: AP-VVCR-Odnp [place] Work Phone: 12-24-2020 12:59-0400 Systolic blood pressure 147 mm[Hg] Koffi Uriarte Work Phone: IG-VCNS-[place]lov [place] Work Phone: 08-14-2020 13:26-0500 BMI (Body Mass Index) 29.04 kg/m2 Koffi Uriarte IQ-Wqvhsxlvc-Mpox [place] S[facility] DO Work Phone: 08-14-2020 13:26-0500 Body Temperature 97.5 [degF] [facility] [place] [place] DO Work Phone: 08-14-2020 13:26-0500 Body weight 86.64 kg Koffi Uriarte [facility] Work Phone: 08-14-2020 13:26-0500 BP Diastolic 100 mm[Hg] Koffi Uriarte [facility] [place] [facility] Work Phone: 08-14-2020 13:26-0500 BP Systolic 150 mm[Hg] Koffi Uriarte [facility]-Neurology- [facility] DO Work Phone: 08-14-2020 13:26-0500 BSA (Body Surface Area) 2 m2 Koffi Uriarte FT-Yoqpdmuhq-Gttc [place] [facility] DO Work Phone: 08-14-2020 13:26-0500 Height 172.72 cm Koffi Uriarte MP-Neurology- [facility] DO Work Phone: 05-28-2020 15:24-0500 BMI (Body Mass Index) 28.59 kg/m2 Koffi Uriarte MP-WSPC [facility] Work Phone: 05-28-2020 15:24-0500 Body Temperature 97.6 [degF] Koffi Uriarte UN-RJTL-F[place]yp [place] Work Phone: 05-28-2020 15:24-0500 Body weight 85.28 kg Koffi Uriarte TR-PWNC-Gjke [place] Work Phone: 05-28-2020 15:24-0500 BP Diastolic 82 mm[Hg] Koffi Uriarte XL-BEQK-Vkig [place] Work Phone: 05-28-2020 15:24-0500 BP Systolic 122 mm[Hg] Koffi Uriarte MA-CTCK-Zprw [place] Work Phone: 05-28-2020 15:24-0500 BSA (Body Surface Area) 1.99 m2 Koffi Uriarte YU-GVTP-Hwtw [place] Work Phone: 05-28-2020 15:24-0500 Height 172.72 cm Koffi Uriarte PJ-OUSL-[place]ioh [place] Work Phone: 05-28-2020 15:24-0500 Pulse (Heart [...] 04-19-2020 00:00-0400 BP Diastolic 83 mm[Hg] [facility], [place] 04-19-2020 00:00-0400 BP Systolic 144 mm[Hg] [facility], [place] 04-18-2020 22:17-0400 BMI (Body Mass Index) 28.06 kg/m2 [facility], [place] 04-18-2020 22:17-0400 Body Temperature 98.91 [degF] Tu Mckenna [place], [place] 04-18-2020 22:17-0400 Body weight 86.18 kg Tu Wright [facility], [place] 04-18-2020 22:17-0400 Height 175.3 cm uT Wright [facility], [place] 04-18-2020 22:17-0400 Pulse (Heart Rate) 105 /min Tu Barker [facility] [place], [place] 04-18-2020 22:17-0400 Pulse Oximetry 97 % Tu Wright [facility], [place] 04-18-2020 22:17-0400 Respiratory Rate 16 /min Tu Mckenna [facility], [place] Encounters Encounter Date Encounter Type Care Provider Facility Start: 07-28-2023 End: 07-28-2023 ambulatory LISA ZIMMERMAN Not Available Start: 07-14-2023 End: 07-14-2023 ambulatory SHIMA RODAS Not Available Start: 06-30-2023 End: 07-01-2023 ambulatory SHIMA RODAS Not Available Start: 06-16-2023 End: 06-16-2023 ambulatory SHIMA RODAS Not Available Start: 06-01-2023 End: 06-01-2023 ambulatory SHIMA RODAS Not Available Start: 04-30-2023 End: 04-30-2023 ambulatory NEDRA CALDERON [facility]ulatory Start: 04-30-2023 End: 04-30-2023 Office outpatient visit 15 minutes Nedra Calderon MD Work Phone: [facility] Comment on above: Seizure (CMS/HCC) (P rimary Dx) Start: 11-25-2022 End: 11-26-[address] LISA ZIMMERMAN . Facility:[facility] Start: 11-16-2022 End: 11-17-[address] LISA ZIMMERMAN . Facility:[facility] Start: 07-31-2022 Current tobacco non- user cad cap copd pv dm Koffi Uriarte Work Phone: [facility] Work Phone: Start: 07-31-2022 Periodic preventive med est patient 18-39 yrs Koffi Uriarte Work Phone: WE-IITC-Brjs [place] Work Phone: Start: 07-31-[address] Koffi Uriarte Facility:[id number] Start: 04-16-2022 End: 04-17-2022 ambulatory KAVITA SWEET Facility:[facility] Start: 03-24-2022 End: 03-25-2022 ambulatory Dane Hassan [place] Start: 03-24-2022 Telephone encounter Kavita lyons DO Work Phone: OB/Gynecology Comment on above: Bleeding With Pregna ncy Start: 03-24-2022 End: 03-24-2022 Patient encounter procedure Dane Hassan [facility] Start: 03-19-2022 Telephone encounter Georgia Nathan patricia MARROQUINNLimaREFORESTATION WORKER Work Phone: CB/Gynecology Comment on above: Appointment Start: 03-18-2022 AUDIT Koffi Rosas Aldo ardson Work Phone: CT-Nvnwhqgyq-Fpfegpv e netFactor DO Work Phone: Start: 02-03-2022 ambulatory Brendan Blankenship PA-C Work Phone: OB/Gynecology Comment on above: Bacteria Vaginosis Start: 01-02-2022 AUDIT Koffi Roass Rich ardson Work Phone: TX-QPNT-Nqap [place] Work Phone: Start: 12-24-2021 Office outpatient vi sit 15 minutes Koffi A Uriarte Work Phone: BZ-Oujvcprei-Tzhxlrn e HackermeterW DO Work Phone: Start: 11-17-2021 Office outpatient vi sit 15 minutes Koffi A Uriarte Work Phone: KX-TAFO-Fdkm [place] Work Phone: Start: 09-29-2021 AUDIT Koffi A Rich ardson Work Phone: TR-RKOS-Vlna [place] Work Phone: Start: 09-09-2021 End: 09-09-2021 ambulatory BRENDAN BLANKENSHIP Facility:[facility] Start: 07-04-2021 End: 07-05-2021 ambulatory GEORGIA DWYER Facility:[facility] Start: 07-04-2021 Encounter for gynecological examination (general) (routine) without abnormal findings GEORGIA REYMUNDO [facility] Start: 06-25-2021 Office outpatient vi sit 25 minutes Koffi Alison Uriarte Work Phone: LN-Kgkjgolxe-Ltlrzrv e AMANDAW DO Work Phone: Start: 05-22-2021 Chart Update Koffi Carlson ardson Work Phone: JV-AHUP-Dxrf [place] Work Phone: Start: 05-20-2021 Office outpatient vi sit 25 minutes Koffi Alison Uriarte Work Phone: RH-VETN-Kfsl [place] Work Phone: Start: 05-20-2021 Patient encounter procedure Koffi Clementeson Work Phone: FK-VRYK-Issd [place] Work Phone: Start: 03-28-2021 AUDIT Koffi Alison Carlson ardson Work Phone: HC-QJBB-Spuq [place] Work Phone: Start: 12-24-2020 Chart Update Koffi Alison Rich ardson Work Phone: BX-MZDU-Vbie [place] Work Phone: Start: 12-24-2020 Office outpatient vi sit 25 minutes Koffi A Uriarte Work Phone: OR-CZOP-Fvgg [place] Work Phone: Start: 08-14-2020 Patient encounter procedure Koffi Uriarte FX-Wgyulzbpk-Qcgisjd e SJW DO Work Phone: Start: 06-11-2020 Patient encounter procedure Koffi Uriarte WI-Sqdoxomoz-Vzhvxsy e SJW DO Work Phone: Start: 05-28-2020 Patient encounter procedure Koffi Uriarte XQ-AZWM-Mage [place] Work Phone: Start: 05-09-2020 End: 05-12-2020 Patient encounter procedure SPIKE GARCIA [place] Start: 05-09-2020 End: 05-11-2020 Subsequent hospital visit by physician Madeline Frey 1 EEG Comment on above: 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) Start: 04-25-2020 Patient encounter procedure Koffi Uriarte KI-AXRH-Cfpc [place] Work Phone: Start: 04-19-2020 End: 04-19-2020 Emergency department patient visit [facility] Start: 04-18-2020 End: 04-19-2020 Emergency department patient visit Tu Henley Raad Work Phone: [facility] Comment on above: Seizure (HCC) (Prima ry Dx) Start: 03-02-2019 Patient encounter procedure Koffi Uriarte LH-TKLX-Hqrb [place] Work Phone: Start: 05-04-2017 Ambulatory Koffi Uriarte Fa cility:[facility] Patient encounter status Koffi Uriarte Work Phone: NY-EPII-Ysqd [place] Work Phone: Procedures Date Procedure Procedure [...] Start: 04-18-2020 Urinalysis microscopic only Tu Reece [facility] Work Phone: Start: 04-18-2020 Urnls dip [...] 2) Zoster Vaccines (1 of 2) [facility] Start: 02-17-2028 DTaP/Tdap/Td Vaccine s (8 - Td or Tdap) DTaP/Tdap/Td Vaccines (8 - Td or Tdap) [facility] Start: 08-02-2023 PHYSICAL, Provider: Koffi Uriarte, Status: Pen, Time: 9:00 AM PHYSICAL, Provider: Koffi Uriarte, Status: Pen, Time: 9:00 AM NK-FNTX-Bexw [place] Work Phone: Start: 08-02-2023 End: 08-02-2023 Patient encounter procedure 08/02/2023 9:00 AM EST Office Visit [facility] [place] [address] [place] [address] [place] [address] [address] [facility] [place] Start: 07-02-2023 PAP TESTING PAP TESTING [facility] Start: 07-02-2023 Screening for malignant neoplasm of cervix [facility] Start: 12-24-2022 VIRANA LUISA, Provider : Nedra Calderon, Status: Pen, Time: 10:00 AM ERIKA, Provider: Nedra Calderon, Status: Pen, Time: 10:00 AM SJ-Dcgauetwv-Kawdztf e SJW DO Work Phone: Start: 05-22-2022 PHYSICAL, Provider: Koffi Uriarte, Status: Pen, Time: 9:50 AM PHYSICAL, Provider: Koffi Uriarte, Status: Pen, Time: 9:50 AM WA-JKRY-Eoit [place] Work Phone: Start: 03-24-2022 End: 05-24-2022 Choriogonadotropin.bet a subunit [Units/volume] in Serum or Plasma HCG QUANTITATIVE Lab Routine Bleeding in early Expected: 03/24/2022, Expires: 05/24/2022 [facility] Work Phone: Comment on above: Expected: 03/24/2022 , Expires: 05/24/2022 Start: 03-19-2022 Influenza vaccination INFLUENZA (#1) [facility] Start: 12-24-2021 Thyroid stimulating hormone measurement TSH Level [facility] Start: 12-24-2021 FUVGENERAL, Provider : Nedra Calderon, Status: Pen, Time: 11:30 AM FUVGENERAL, Provider: Nedra Calderon, Status: Pen, Time: 11:30 AM CR-Ewuqnnjbp-Utjxpmz e W DO Work Phone: Start: 11-17-2021 FUV, Provider: Koffi Uriarte, Status: Pen, Time: 1:00 PM FUV, Provider: Koffi Uriarte, Status: Pen, Time: 1:00 PM FZ-QFVC-Obti [place] Work Phone: Start: 07-01-2021 COVID-19 VACCINE (3 - Booster for Pfizer series) COVID-19 VACCINE (3 - Booster for Pfizer series) [facility] Start: 06-25-2021 FUVGENERAL, Provider : Nedra Calderon, Status: Pen, Time: 2:00 PM FUVGENERAL, Provider: Nedra Calderon, Status: Pen, Time: 2:00 PM ZG-XAEL-Kkkj [place] Work Phone: Start: 06-25-2021 FUVGENERAL, Provider : Nedra Calderon, Status: Pen, Time: 11:00 AM FUVGENERAL, Provider: Nedra Calderon, Status: Pen, Time: 11:00 AM FB-XHLL-Dynu [place] Work Phone: Start: 05-20-2021 FUV, Provider: Koffi Uriarte, Status: Pen, Time: 3:40 PM FUV, Provider: Koffi Uriarte, Status: Pen, Time: 3:40 PM OV-YDIV-QbesGist Work Phone: Start: 03-31-2021 FUV, Provider: Koffi Uriarte, Status: Pen, Time: 2:00 PM FUV, Provider: Koffi Uriarte, Status: Pen, Time: 2:00 PM PI-MSUA-AhwgGist Work Phone: Start: 03-26-2021 COVID-19 Vaccine (3 - Pfizer series) COVID-19 Vaccine (3 - Pfizer series) [facility] Start: 03-19-2020 Influenza vaccination Flu vaccine (# 1) [place] Start: 03-02-2018 DTaP/Tdap/Td vaccine (7 - Td) DTaP/Tdap/Td vaccine (7 - Td) [place] Start: 03-02-2018 Urine microalbumin profile DTAP,TDAP,TD (7 - Td or Tdap) [facility] Start: 2014 Screening for malignant neoplasm of cervix [facility] Start: 10-02-2011 HEPATITIS C SCREENING HEPATITIS C [facility] Start: 10-02-2011 Hepatitis C screening Hepatitis C [facility] Start: 10-02-2011 HIV SCREENING HIV SCREENING [facility] Start: 2008 HIV screening HIV screen [place], [place] Start: 2005 Adult depression screening assessment DEPRESSION SCREENING [facility] Start: 2004 HPV vaccine (1 - 2-dose series) HPV vaccine (1 - 2-dose series) [place], [place] Start: 04-09-1999 Varicella vaccination Varicell a Vaccines (1 of 2 - 2-dose childhood series) [facility] Start: 1994 Varicella vaccine (1 of 2 - 2-dose childhood series) Varicella vaccine (1 of 2 - 2-dose childhood series) [place] Start: 1993 HIV screening HIV Screening [facility] Start: 1993 Lipid panel Lipid Panel [facility] Start: 1993 Yearly Adult Physical Yearly Adult P [facility] End: 04-18-2020 CT Head WO Contrast CT Head WO Contrast Imaging STAT Once for 1 Occurrences starting 04/18/2020 until 04/18/2020 [place] Comment on above: Once for 1 Occurrenc es starting 04/18/2020 until 04/18/2020 CT Head WO Contrast CT Head WO C ontrast Imaging STAT 04/18/2020 11:15 PM EDT [place] End: 04-18-2020 Prolactin Prolactin Lab STAT One Time for 1 Occurrences starting 04/18/2020 until 04/18/2020 [place] Comment on above: One Time for 1 Occur rences starting 04/18/2020 until 04/18/[address] AT 04/18/2020 11:17 PM EDT [place] ON-BQRZ-Dwbj Zurff kurt Work Phone: [facility] NEGATED: Highlighted row has been ruled out! Planned Goals not documented BW-EYFH-Afoo [place] Work Phone: Immunizations Immunization Date Immunization Notes Care Provider Radha laura 04-21-2022 influenza, injectabl e, quadrivalent, preservative free Koffi A [employer] Work Phone: DB-YEYF-Coxo [place] Work Phone: 04-18-2021 influenza, injectabl e, quadrivalent, preservative free Koffi A Uriarte Work Phone: LQ-PVVA-Fjum [place] Work Phone: 01-29-2021 Pfizer-BioNTech COVID-19 Vacc 30 MCG/0.3ML Intramuscular Suspension Koffi A Uriarte Work Phone: OX-JEDV-Kifa [place] Work Phone: 01-08-2021 Pfizer-BioNTech COVID-19 Vacc 30 MCG/0.3ML Intramuscular Suspension Koffi A Uriarte Work Phone: PK-WURV-Cbhg [place] Work Phone: 05-09-2019 Influenza, injectabl e, Madin Claudia Canine Kidney, preservative free, quadrivalent Koffi Alison [employer] Work Phone: [employer] Work Phone: 04-28-2018 influenza, injectabl e, quadrivalent, contains preservative Koffi A Uriarte Work Phone: [employer] Work Phone: 02-16-2018 tetanus toxoid, redu diego diphtheria toxoid, and acellular pertussis vaccine, adsorbed Koffi A [employer] Work Phone: [employer] Work Phone: 05-06-2017 influenza, injectabl e, quadrivalent, preservative free Koffi Rosas [employer] Work Phone: [employer] Work Phone: 01-14-2016 pneumococcal polysaccharide vaccine, 23 valent Koffi Rosas [employer] Work Phone: [employer] Work Phone: 11-30-2014 tuberculin skin test ; purified protein derivative solution, intradermal [facility], [place] 12-15-2013 tuberculin skin test ; purified protein derivative solution, intradermal [facility], [place] 03-02-2008 tetanus toxoid, redu diego diphtheria toxoid, and acellular pertussis vaccine, adsorbed [facility] 02-25-2007 meningococcal polysaccharide (groups A, C, Y and W-135) diphtheria toxoid conjugate vaccine (MCV4P) [facility], [place] 02-25-2007 Meningococcal, MCV4, unspecified conjugate formulation(groups A, C, Y and W-135) [facility] 03-12-1999 diphtheria, tetanus toxoids and acellular pertussis vaccine [facility] 03-12-1999 diphtheria, tetanus toxoids and acellular pertussis vaccine, unspecified formulation Koffi Uriarte Work Phone: [employer] Work Phone: 03-12-1999 haemophilus influenz ae type b vaccine, HbOC conjugate [facility] 03-12-1999 measles, mumps and rubella virus vaccine [facility] 03-12-1999 poliovirus vaccine, inactivated [facility], [place] 03-12-1999 trivalent poliovirus vaccine, live, oral [facility] 01-07-1995 diphtheria, tetanus toxoids and acellular pertussis vaccine [facility] 01-07-1995 diphtheria, tetanus toxoids and acellular pertussis vaccine, unspecified formulation Koffi Clementeson Work Phone: [employer] Work Phone: 10-22-1994 haemophilus influenz ae type b vaccine, conjugate unspecified formulation [place], [place] 10-22-1994 haemophilus influenz ae type b vaccine, PRP-OMP conjugate Koffi Alison Uriarte Work Phone: [employer] Work Phone: 10-22-1994 Hib, unspecified [facility], [place] 10-22-1994 measles, mumps and rubella virus vaccine [facility] 10-22-1994 poliovirus vaccine, inactivated [facility] 06-18-1994 hepatitis B vaccine, pediatric or pediatric/adolescent dosage Koffi Alison ClementeUriarte Work Phone: [facility] 06-18-1994 hepatitis B vaccine, unspecified formulation [facility] , [place] 04-16-1994 diphtheria, tetanus toxoids and acellular pertussis vaccine [facility] 04-16-1994 diphtheria, tetanus toxoids and pertussis vaccine [facility] 04-16-1994 haemophilus influenz ae type b vaccine, conjugate unspecified formulation [facility] 04-16-1994 haemophilus influenz ae type b vaccine, HbOC conjugate Brendan Blankenship PA-C Work Phone: [facility] 04-16-1994 haemophilus influenz ae type b vaccine, PRP-OMP conjugate Koffi Uriarte Work Phone: [employer] Work Phone: 04-16-1994 Hib, unspecified [facility] 04-16-1994 poliovirus vaccine, inactivated [facility] 04-16-1994 trivalent poliovirus vaccine, live, oral [facility] 02-12-1994 diphtheria, tetanus toxoids and acellular pertussis vaccine [facility] 02-12-1994 diphtheria, tetanus toxoids and pertussis vaccine [facility] 02-12-1994 haemophilus influenz ae type b vaccine, conjugate unspecified formulation [facility] 02-12-1994 haemophilus influenz ae type b vaccine, HbOC conjugate Brendan Pattie PA-C Work Phone: [facility] 02-12-1994 haemophilus influenz ae type b vaccine, PRP-OMP conjugate Koffi Alison Chapito Work Phone: [employer] Work Phone: 02-12-1994 Hib, unspecified [facility] 02-12-1994 poliovirus vaccine, inactivated [facility] 02-12-1994 trivalent poliovirus vaccine, live, oral [facility] 01-08-1994 hepatitis B vaccine, pediatric or pediatric/adolescent dosage Koffi Alison Chapito Work Phone: [facility] 01-08-1994 hepatitis B vaccine, unspecified formulation [facility] , [place] 1993 diphtheria, tetanus toxoids and acellular pertussis vaccine [facility], [place] 1993 diphtheria, tetanus toxoids and pertussis vaccine [facility] 1993 haemophilus influenz ae type b vaccine, conjugate unspecified formulation [facility], [place] 1993 haemophilus influenz ae type b vaccine, HbOC conjugate Brendan Glasenapp PA-C Work Phone: [facility] 1993 haemophilus influenz ae type b vaccine, PRP-OMP conjugate Koffi Uriarte Work Phone: AF-PBWA-Dzri [place] Work Phone: 1993 hepatitis B vaccine, pediatric or pediatric/adolescent dosage Koffi Uriarte Work Phone: [facility] 1993 hepatitis B vaccine, unspecified formulation [place], [place] 1993 Hib, unspecified [place], [place] 1993 poliovirus vaccine, inactivated [facility] 1993 trivalent poliovirus vaccine, live, oral [facility], [place] Payers Date Payer Category Payer Unknown 2020 Unknown MMO MMO [employer] [id number] 2020-Present [phone] [address] [place] [address] O [id number] 2019 Unknown [id number] 1993 Unknown [id number] 1993 Unknown [id number] 1993 Unknown [id number] 1993 Unknown [id number] 1993 Unknown [id number] 1993 Unknown [id number] 1993 Unknown [id number] 1993 Unknown [id number] 1993 Unknown [id number] 1993 Unknown [id number] 1993 Unknown [id number] 1993 Unknown [id number] 1993 Unknown [id number] 1959 Unknown [id number] Unknown [id number] Social History Date Type Detail Facility Start: 04-18-2020 End: 04-30-2023 Tobacco smoking status [facility] Never smoker [facility] Start: 04-18-2020 End: 04-30-2023 Tobacco use and exposure Never used [place] Start: 04-18-2020 End: 09-09-2021 Alcohol intake Current drinker of alcohol (finding) [place] Start: 09-19-2019 History SDOH Financial 5 [place] Start: 09-19-2019 History SDOH Food Worry 1 [place] Start: 09-19-2019 History SDOH Transport Med 2 [place] Start: 04-18-2020 Alcohol Comment occasionally [facility] [place], [place] Start: 1993 Sex Assigned At Not on file [place] Start: 04-20-2023 End: 04-30-2023 Exposure to SARS-CoV-2 (event) Not sure [place] Never smoker Never smoker Tamara Patterson Work Phone: Tobacco smoking status Never [facility] Sex Assigned At Female [facility] NEGATED: Highlighted row - - OA-NHTP-YyqjFrederic Ruby Work Phone: NEGATED: Highlighted rowStart: NINF History of tobacco use Passive smoker [facility] Work Phone: Functional Status Date Assessment Result Facility NEGATED: Highlighted row Functional performance Functional status health issues are not documented Disease GR-VUUX-CzwmJames Ruby Work Phone: Mental Status Date Assessment Result Facility NEGATED: Highlighted row Cognitive function [Interpretation] Cognitive status health issues are not documented Disease HE-LEBS-WukzJames Ruby Work Phone: Clinical Notes 08-09-2017 to [...] 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 Patient Active Problem List Diagnosis Abnormal weight [...] 5/5 throughout all four extremities. Coordination Right: Gdfunl-cc-gypi normal.Left: Dvvmww-ms-zrlc normal. Physical Exam Eyes: Extraocular Movements: Extraocular [...] 1 year documented in this encounter [facility] Work Phone: 11-25-2022 Note EXAMINATION: US [...] authenticated by: HAYLIE RIVER Date: 2022-11-25 17:20 [facility] 04-16-2022 Note HNO ID: [id number] Author: Brendan Blankenship PA-C Service: ? 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 IBrendan, have reviewed this information as documented for accuracy and performed all elements of history taking, and edited the record as necessary. 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 documented in this encounter [facility] 03-19-2022 Miscellaneous Notes LMP 02/11, +hpt. Assisted w initial OBV. Advised to take vitamin w folic acid. First trimester precautions provided. handbook sent in . documented in this encounter [facility] 02-03-2022 Miscellaneous Notes The following [...] medication MICHELLE: No documented in this encounter [facility] 09-09-2021 Note HNO ID: [id number] Author: Brendan Blankenship PA-C Service: ? 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 Portions of this record were documented by the Button Sewer Hand. I, Brendan Blankenship, have reviewed this information as documented for accuracy and performed all elements of history taking, and edited the record as necessary. 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 [...] Medical Decision Making Level: 3 - Low [facility] 07-04-2021 Note HNO ID: [id number] Author: 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 APRN.REFORESTATION WORKER Service: ? 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 Avoid scratching, scented pads/tampons/toilet papers, cranberry juice, bubble baths, and intercourse until symptoms are relieved. NO douching. If you shave, use a new razor at least twice monthly. 5) Follow up one year or sooner as needed 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 APRN.REFORESTATION WORKER [facility] 08-09-2017 History of Past i llness Narrative Problem Noted Date Resolved Date NO SHOW 08/09/2017 08/09/2017 documented as of this encounter (statuses as of 02/03/2022) [facility] History of Past illness Narrative* Problem Noted Date Resolved Date NO SHOW 08/09/2017 08/09/2017 documented as of this encounter (statuses as of 03/19/2022) [facility] History of Past illness Narrative* Problem Noted Date Resolved Date NO SHOW 08/09/2017 08/09/2017 documented as of this encounter (statuses as of 03/24/2022) [facility] [place] [facility] No data available for this section [facility] Diagnosis Acute vaginitis- Primary Vaginitis and vulvovaginitis, unspecified documented in this encounter [facility] [place] [facility]* Diagnosis Bleeding in early - Primary Unspecified hemorrhage in early , unspecified as to episode of care [facility] [place] [facility]* Diagnosis Seizure (CMS/HCC)- Primary Other convulsions documented in this encounter [facility] Work Phone: History of Present illness Narrative* The patient states she has been doing well with her blood pressure control since the last visit. She has no comorbid illnesses. She has no significant interval events. * Symptoms: The patient is currently asymptomatic. * Less anxiety lately. Broke up with her boyfriend. * Working in [employer] [place] at the [email or web address] department. * BP is much improved on lisinopril. * Saw gyne for discharge. * was told she had BV and chlamydia. * took antibiotics, got better for a few weeks and now she is having discharge again and odor. no pelvic pain. [employer] Work Phone: History of Present illness Narrative* The patient states she has been doing well with her blood pressure control since the last visit. She has no comorbid illnesses. She has no significant interval events. * Symptoms: The patient is currently asymptomatic. * Less anxiety lately. Broke up with her boyfriend. * Working in [employer] [place] at the [employer]. * BP is much improved on lisinopril. * Saw gyne for discharge. * was told she had BV and chlamydia. * took antibiotics, got better for a few weeks and now she is having discharge again and odor. no pelvic pain. [employer] Work Phone: Hospital Discharge instructions No data available for this section [facility] note No data available for this section [facility] Summary Purpose Family History No Family History [...] FoundDocuments on File Type Date Recorded Patient Hospital Administrative Assistant Expl anation ACP-Advance Directive ACP-Power of Core Blower Documents on File Type Date Recorded Patient Hospital Administrative Assistant Expl anation ACP-Advance Directive ACP-Power of Core Blower Documents on File Type Date Recorded Patient Hospital Administrative Assistant Expl anation Advance Directive(s) 11/30/2015 2:19 PM Reason for Referral Status Reason Specialty Diagnoses / Procedures Referre d By Contact Referred To Contact Open Radiology Diagnoses Nonintractable generalized idiopathic epilepsy without status epilepticus (HCC) Procedures MRI BRAIN W WO CONTRAST Spike Garcia MD [address] [address] Assessments Diagnosis Nonintractable generalized idiopathic epilepsy without status epilepticus (HCC) Diagnosis Seizure (HCC) Other convulsions Discharge Instructions * Attachments The following attachments cannot be sent through Care Everywhere. * Seizure (American) documented in this encounter Additional Source Comments INFORMATION SOURCE (unrecogn ized section and content) DATE CREATED AUTHOR 01/11/2018 [facility] DATE CREATED AUTHOR AUTHOR'S ORGANIZ ATION 04/19/2020 [facility] DATE CREATED AUTHOR AUTHOR'S ORGANIZ ATION 05/11/2020 [facility] DATE CREATED AUTHOR AUTHOR'S ORGANIZ ATION 12/29/2020 [facility] DATE CREATED AUTHOR AUTHOR'S ORGANIZ ATION 04/14/2022 [facility] DATE CREATED AUTHOR AUTHOR'S ORGANIZ ATION 04/20/2022 [facility] DATE CREATED AUTHOR AUTHOR'S ORGANIZ ATION 08/11/2022 [facility] DATE CREATED AUTHOR AUTHOR'S ORGANIZ ATION 11/29/2022 [facility] DATE CREATED AUTHOR AUTHOR'S ORGANIZ ATION 12/27/2022 [facility] DATE CREATED AUTHOR AUTHOR'S ORGANIZ ATION 05/02/2023 [facility] DATE CREATED AUTHOR AUTHOR'S ORGANIZ ATION 07/30/2023 [facility] EPIC Reason for Visit (unrecogniz ed section and content) Status Reason Specialty Diagnoses / Procedures Referre d By Contact Referred To Contact Closed EEG Diagnoses Generalized idiopathic epilepsy and epileptic syndromes, not intractable, without status epilepticus Procedures EEG 16+ CHANNEL TELEMTERY 24HR Spike Garcia MD [address] [facility] [address] [place] [address] Mloz Eeg [address] [place] [address] Status Reason Specialty Diagnoses / Procedures Referre d By Contact Referred To Contact Closed Radiology Diagnoses Generalized idiopathic epilepsy and epileptic syndromes, not intractable, without status epilepticus Procedures MRI-BRAIN WO & W CONTRAST Spike Garcia MD [address] [facility] [address] [place] [address] Mloz Mri [address] [place] [address] Reason Comments Seizures Seizure like activit y [...] or prosecute any alcohol or drug abuse patient.[facility] Center[facility] the event this information is protected by the Federal Confidentiality of Alcohol and Drug Abuse Patient Records regulations: The Federal rules restrict any use of the information to criminally investigate or prosecute any alcohol or drug abuse patient.[facility] Center[facility] the event this information is protected by the Federal Confidentiality of Alcohol and Drug Abuse Patient Records regulations: The Federal rules restrict any use of the information to criminally investigate or prosecute any alcohol or drug abuse patient.[facility] Care Teams (unrecognized sec tion and content) [employer] Super[employer] Relationship Specialty Start Date End Date Koffi Uriarte MD PCP - General Family Practice 08/17/16 [employer] Supervisor Relationship Specialty Start Date End Date Koffi Uriarte MD PCP - General Family Practice 08/17/16 [employer] Supervisor Relationship Specialty Start [place] [address] [place], [place] [id number] PCP - General 08/14/20 [place] [address] [place], [place] [id number] PCP - MMO ACO PCP 02/16/23 FOR [...] BE BASED ON THE PRIMARY CLINICAL RECORDS. [employer] provides no warranty or guarantee of the accuracy or completeness of information in this document.
[2023-08-04 06:28] LABS: Basophils Absolute Auto 0.1 10^3/uL (0.0-0.1); Basophils Percent Auto 0.5 % (0.2-2.0); Eosinophils Absolute Auto 0.2 10^3/uL (0.0-0.7); Hematocrit 33.6 % (36.0-48.0); Hemoglobin 10.9 g/dL (12.0-16.0); Immature Granulocytes Abs Auto 0.05 10^3/uL (0.00-0.03); Immature Granulocytes Pct Auto 0.5 % (0.0-0.5); Lymphocytes Absolute Auto 2.7 10^3/uL (1.2-3.8); Lymphocytes Percent Auto 25.6 % (20.5-60.0); Mean Corpuscular HGB Conc 32.4 g/dL (29.9-35.2); Mean Corpuscular Hemoglobin 29.2 pg (26.7-34.0); Mean Corpuscular Volume 90.1 fL (81.0-99.0); Mean Platelet Volume 9.9 fL (9.5-13.5); Monocytes Absolute Auto 0.8 10^3/uL (0.3-0.8); Neutrophils Absolute Auto 6.6 10^3/uL (1.4-6.5); Neutrophils Percent Auto 63.4 % (43.0-75.0); Platelet Count 286 10^3/uL (150-450); Red Blood Count 3.73 10^6/uL (4.20-5.40); Red Cell Distribution Width 12.6 % (11.0-15.0); White Blood Count 10.4 10^3/uL (4.0-11.0)
[2023-08-04 06:37] LABS: Cannabinoid Screen Urine NEGATIVE (NEGATIVE); Phencyclidine Screen Urine NEGATIVE (NEGATIVE)
[2023-08-04 06:38] LABS: Amphetamine Screen Urine NEGATIVE (NEGATIVE); Barbiturates Screen Urine NEGATIVE (NEGATIVE); Benzodiazepines Screen Urine NEGATIVE (NEGATIVE); Buprenorphine Screen Urine NEGATIVE (NEGATIVE); Cocaine Screen Urine NEGATIVE (NEGATIVE); Methadone Screen Urine NEGATIVE (NEGATIVE); Methamphetamines Screen Urine NEGATIVE (NEGATIVE); Opiate Screen Urine NEGATIVE (NEGATIVE); Oxycodone Screen Urine NEGATIVE (NEGATIVE); Tricyclic Antidepressant Urine NEGATIVE (NEGATIVE)
[2023-08-04] MEDS: 0.9 % SODIUM CHLORIDE 1,000 ML 1000 ML IV ×2 (07:03→07:13)
[2023-08-04] MEDS: CITRIC ACID/SODIUM CITRATE 30 ML SOLUTION ORACIT SHOHL'S SOLN PO (07:21)
[2023-08-04] MEDS: CEFAZOLIN SODIUM/DEXTROSE,ISO 2 GM/50 ML PIGGYBACK IV ×2 (07:22→13:11)
[2023-08-04] MEDS: METOCLOPRAMIDE HCL 10 MG/2 ML VIAL IVP (07:22)
[2023-08-04] MEDS: FAMOTIDINE/PF 20 MG/2 ML VIAL IV (07:22)
--- NOTE | 2023-08-04 08:34 | P.ON_ITS ---
Brief Operative Note Date of procedure: 08/04/23 Pre-op diagnosis: iup at 37wks, breech presentation, chronic htn Post-op diagnosis: same as pre-op Procedure: NAME OF PROCEDURE: [ section ] PROCEDURE: Patient was taken back to the Operating Room where she was given a spinal anesthesia with Duramorph without difficulty. She was prepped and draped in the normal sterile fashion. A Pfannenstiel skin incision was then made 2 cm above the symphysis pubis and carried down to underlying rectus fascia using a Bovie. The fascia was incised in the midline and extended laterally using Cortez scissors. Two Yunier clamps were placed on the superior aspect of the fascia and dissected off the underlying rectus muscles. The same was performed on the inferior aspect as well. The muscles were then in the midline. Peritoneum was identified and entered bluntly. The peritoneum was then extended superiorly and inferiorly with good visualization of the bladder. The bladder blade was inserted. A low transverse incision was made on the patient's uterus and extended laterally digitally. The was then delivered atraumatically after the bladder blade was removed in the cephalic position. The cord was clamped and cut. Cord blood was obtained. The infant was handed off to awaiting team. The patient's placenta was spontaneously delivered. The uterus was then exteriorized. The uterus was cleared of all clots and debris. The bladder blade was reinserted. The patient's uterine incision was closed using #0 Vicryl in a running lock fashion. Excellent hemostasis was assured. The uterus was then returned to the patient's abdomen. The patient's abdomen was copiously irrigated using warm saline. Peritoneal gutters were cleared of all clots and debris. Again excellent hemostasis was assured. The patient's peritoneum was closed using 3-0 Vicryl in a running fashion. The patient's fascia was closed using #0 Vicryl in a running fashion. The patient's skin was closed using 4-0 Vicryl subcuticularly. The patient tolerated the procedure well. Sponge, lap, and needle counts were correct x2. The patient was taken to the Recovery Room in stable condition. Anesthesia: spinal Surgeon: Willis Chen Retail Merchandising Coordinator: Norma Ruby Estimated blood loss (mL): 575 Pathology: other (placenta) Condition: stable Disposition: floor Urinary Catheter Management Urinary Catheter Management Urethral: Cath placed during this visit: yes Urethral indwelling: Yes Reason for continuing: assist healing open wound Insertion date: 08/04/23 Insertion time: 06:00
--- NOTE | 2023-08-04 08:36 | P.OBPRC_ITS ---
Procedure Pre-op/Post-op diagnoses: Pre-Op/Post-Op Diagnoses Operation Date: 08/04/23 07:30 <No data on this case meets the specified criteria> Procedure: Procedures Operation Date: 08/04/23 07:30 Actual Procedure Side Surgeon p , Breech Presentation Not Applicable Willis Chen DO It Disaster Recovery Manager: Norma Ruby Estimated blood loss (mL): 575 Disposition: floor Anesthesia type: Spinal
[2023-08-04] MEDS: OXYTOCIN/0.9 % SODIUM CHLORIDE 20 UNITS/1,000 ML PLAST..BAG 125 UNIT IV (09:16)
[2023-08-04] MEDS: LABETALOL HCL 200 MG TABLET PO ×2 (09:27→22:54)
[2023-08-04] MEDS: LAMOTRIGINE 100 MG TABLET PO ×2 (09:27→22:54)
[2023-08-04] MEDS: KETOROLAC TROMETHAMINE 30 MG/ML VIAL IVP ×3 (09:27→22:53)
--- NOTE | 2023-08-04 16:31 | PC.NURSE ---
LC into room for education. BAby awake and rooting, large burp and regurg of mucus, with baby swallowing again. Discussed good latch, positioning, and supporting breast for latch. Attempted Laid-back, football and cross cradle positions with baby licking, taking nipple tip into mouth, no full latch and baby return to sleep. Discussed LPI behaviors and hand expression Demo given and mom able to return demo at this time. Father attentive and acting as catcher of drops of colostrum. Encouraged to feed colostrum to infant and attempt breast at next feed. Verbalized understanding.
[2023-08-04] MEDS: ENOXAPARIN SODIUM 40 MG/0.4 ML SYRINGE SUBQ (22:53)
[2023-08-05 03:30] VITALS: BP 120/80; PULSE 62; RESP 18; TEMP 36.6
[2023-08-05] MEDS: KETOROLAC TROMETHAMINE 30 MG/ML VIAL IVP ×3 (05:17→17:25)
[2023-08-05 06:43] LABS: Basophils Absolute Auto 0.1 10^3/uL (0.0-0.1); Basophils Percent Auto 0.5 % (0.2-2.0); Eosinophils Absolute Auto 0.2 10^3/uL (0.0-0.7); Eosinophils Percent Auto 2.3 % (0.9-7.0); Hematocrit 29.8 % (36.0-48.0); Hemoglobin 9.5 g/dL (12.0-16.0); Immature Granulocytes Abs Auto 0.05 10^3/uL (0.00-0.03); Immature Granulocytes Pct Auto 0.5 % (0.0-0.5); Lymphocytes Absolute Auto 2.8 10^3/uL (1.2-3.8); Lymphocytes Percent Auto 28.7 % (20.5-60.0); Mean Corpuscular HGB Conc 31.9 g/dL (29.9-35.2); Mean Corpuscular Hemoglobin 29.3 pg (26.7-34.0); Mean Platelet Volume 9.4 fL (9.5-13.5); Monocytes Absolute Auto 0.7 10^3/uL (0.3-0.8); Monocytes Percent Auto 7.4 % (1.7-12.0); Neutrophils Absolute Auto 5.9 10^3/uL (1.4-6.5); Neutrophils Percent Auto 60.6 % (43.0-75.0); Platelet Count 212 10^3/uL (150-450); Red Blood Count 3.24 10^6/uL (4.20-5.40); Red Cell Distribution Width 12.6 % (11.0-15.0); White Blood Count 9.7 10^3/uL (4.0-11.0)
--- NOTE | 2023-08-05 07:13 | W.PC.ACHO ---
Registration Status: ADM IN Primary Language: Turkmen Preferred Language: Turkmen Active Medications Generic Name Dose Route Start Last Admin Trade Name Freq PRN Reason Stop Dose Admin Al Hydroxide/Mg Hydroxide 2,400 mg 08/04/23 08:36 Magnesium Hydroxide 2,400 Mg/10 Ml Oral.Susp PO Q6H PRN Dyspepsia Diphenhydramine HCl 25 mg 08/04/23 08:36 Diphenhydramine Hcl 50 Mg/Ml (1ml) Vial IV 08/05/23 08:38 Q6H PRN Itching Diphtheria/Pertussis/Tetanus Vacc 0.5 ml 08/06/23 09:00 Adacel Diph,Pertuss(Acell),Tet Vac/Pf 0.5 Ml Adult Syringe IM 08/06/23 09:01 .ONCE ONE Docusate Sodium 100 mg 08/05/23 09:00 Docusate Sodium 100 Mg Capsule PO BID KEVIN Enoxaparin Sodium 40 mg 08/04/23 20:00 08/04/23 22:53 Enoxaparin Sodium 40 Mg/0.4 Ml Syringe SUBQ 40 mg Q24H KEVIN Administration Sodium Chloride 1,000 mls @ 125 mls/hr 08/04/23 08:45 Sodium Chloride 0.9% 1,000 Ml IV .Q8H KEVIN Ibuprofen 800 mg 08/04/23 08:36 Ibuprofen 400 Mg Tablet PO Q8H PRN Pain Ketorolac Tromethamine 30 mg 08/04/23 08:36 08/05/23 05:17 Ketorolac Tromethamine 30 Mg/Ml Vial IVP 08/06/23 08:37 30 mg Q6H PRN Administration Pain Labetalol HCl 200 mg 08/04/23 10:00 08/04/23 22:54 Labetalol Hcl 200 Mg Tablet PO 200 mg BID KEVIN Administration Lamotrigine 100 mg 08/04/23 10:00 08/04/23 22:54 Lamotrigine 100 Mg Tablet PO 100 mg BID KEVIN Administration Measles/Mumps/Rubella Vaccine Live 0.5 ml 08/06/23 09:00 Measles,Mumps,Rubella Vacc/Pf 0.5 Ml Vial SQ 08/06/23 09:01 .ONCE ONE Ondansetron HCl 4 mg 08/04/23 08:36 Ondansetron Pf 4 Mg/2 Ml Vial IV Q6H PRN Nausea And Vomiting Ondansetron HCl 4 mg 08/04/23 08:36 Ondansetron 4 Mg Rapdis Tablet PO Q6H PRN Nausea And Vomiting Oxycodone/Acetaminophen 1 tab 08/04/23 08:36 Oxycodone Hcl/Acetaminophen 5mg/325mg PO Q4H PRN Pain Scale 4-6 Oxycodone/Acetaminophen 2 tab 08/04/23 08:36 Oxycodone Hcl/Acetaminophen 5mg/325mg PO Q4H PRN Pain Scale 7-10 Senna 17.2 mg 08/04/23 20:00 Sennosides 8.6 Mg Tablet PO QHS PRN Constipation Simethicone 80 mg 08/04/23 08:36 Simethicone 80 Mg Tab.Chew PO QID PRN Abdominal Distention Diet Category Date Time Status Regular Consistency Diet Diet 08/04/23 08:37 Active Neurology Shea coma scale total score 15 Kendall coma scale total score 15 Respiratory Lung sounds [Bilateral clear Throughout] Lung sounds [Bilateral clear Throughout] Lung sounds [Bilateral clear Throughout] Pulse Oximetry 96 Pulse Oximetry 98 Pulse Oximetry 98 Pulse Oximetry 98 Pulse Oximetry 99 Pulse Oximetry 98 Pulse Oximetry 97 Pulse Oximetry 96 Pulse Oximetry 98 Pulse Oximetry 98 Pulse Oximetry 98 Pulse Oximetry 98 Pulse Oximetry 98 Pulse Oximetry 97 Pulse Oximetry 99 Pulse Oximetry 97 Pulse Oximetry 98 Pulse Oximetry 98 Pulse Oximetry 98 Pulse Oximetry 98 Pulse Oximetry 98 Pulse Oximetry 97 Pulse Oximetry 98 Pulse Oximetry 97 Pulse Oximetry 97 Pulse Oximetry 97 Pulse Oximetry 97 Pulse Oximetry 97 Pulse Oximetry 97 Pulse Oximetry 97 Pulse Oximetry 95 Pulse Oximetry 95 Pulse Oximetry 96 Pulse Oximetry 96 Pulse Oximetry 96 Pulse Oximetry 96 Pulse Oximetry 96 Pulse Oximetry 96 Pulse Oximetry 96 Pulse Oximetry 92 Pulse Oximetry 91 Pulse Oximetry 98 Pulse Oximetry 96 Pulse Oximetry 96 Pulse Oximetry 96 Pulse Oximetry 96 Oxygen Delivery Method Room Air Oxygen Delivery Method Room Air Oxygen Delivery Method Room Air Oxygen Delivery Method Room Air Oxygen Delivery Method Room Air Oxygen Delivery Method Room Air Oxygen Delivery Method Room Air Oxygen Delivery Method Room Air Oxygen Delivery Method Room Air Cardiology Heart Sounds Strong,Regular Heart Sounds Strong,Regular Heart Sounds Strong,Regular Bowels Bowel Pattern No Bowel Movement Bowel Pattern No Bowel Movement Bowel Pattern No Bowel Movement Catheter Urinary Catheter Date of 08/04/23 Insertion [Urethral] Urinary Catheter Time of 06:00 Insertion [Urethral]
[2023-08-05 10:00] VITALS: BP 106/70; PULSE 76; RESP 16
[2023-08-05] MEDS: DOCUSATE SODIUM 100 MG CAPSULE PO ×2 (10:10→23:06)
[2023-08-05] MEDS: LAMOTRIGINE 100 MG TABLET PO ×2 (10:11→21:00)
[2023-08-05] MEDS: LABETALOL HCL 200 MG TABLET PO ×2 (10:11→21:00)
[2023-08-05 17:25] VITALS: PULSE 80; RESP 16; TEMP 36.5
[2023-08-05] MEDS: ENOXAPARIN SODIUM 40 MG/0.4 ML SYRINGE SUBQ (23:06)
[2023-08-05 23:27] VITALS: BP 128/62; PULSE 68; RESP 16; TEMP 36.7
[2023-08-06] MEDS: KETOROLAC TROMETHAMINE 30 MG/ML VIAL IVP (06:11)
--- NOTE | 2023-08-06 07:25 | W.PC.ACHO ---
Registration Status: ADM IN Primary Language: Gabonese Preferred Language: Gabonese Active Medications Generic Name Dose Route Start Last Admin Trade Name Freq PRN Reason Stop Dose Admin Al Hydroxide/Mg Hydroxide 2,400 mg 08/04/23 08:36 Magnesium Hydroxide 2,400 Mg/10 Ml Oral.Susp PO Q6H PRN Dyspepsia Diphtheria/Pertussis/Tetanus Vacc 0.5 ml 08/06/23 09:00 Adacel Diph,Pertuss(Acell),Tet Vac/Pf 0.5 Ml Adult Syringe IM 08/06/23 09:01 .ONCE ONE Docusate Sodium 100 mg 08/05/23 09:00 08/05/23 23:06 Docusate Sodium 100 Mg Capsule PO 100 mg BID KEVIN Administration Enoxaparin Sodium 40 mg 08/04/23 20:00 08/05/23 23:06 Enoxaparin Sodium 40 Mg/0.4 Ml Syringe SUBQ 40 mg Q24H KEVIN Administration Sodium Chloride 1,000 mls @ 125 mls/hr 08/04/23 08:45 Sodium Chloride 0.9% 1,000 Ml IV .Q8H KEVIN Ibuprofen 800 mg 08/04/23 08:36 Ibuprofen 400 Mg Tablet PO Q8H PRN Pain Ketorolac Tromethamine 30 mg 08/04/23 08:36 08/06/23 06:11 Ketorolac Tromethamine 30 Mg/Ml Vial IVP 08/06/23 08:37 30 mg Q6H PRN Administration Pain Labetalol HCl 200 mg 08/04/23 10:00 08/05/23 21:00 Labetalol Hcl 200 Mg Tablet PO 200 mg BID KEVIN Administration Lamotrigine 100 mg 08/04/23 10:00 08/05/23 21:00 Lamotrigine 100 Mg Tablet PO 100 mg BID KEVIN Administration Measles/Mumps/Rubella Vaccine Live 0.5 ml 08/06/23 09:00 Measles,Mumps,Rubella Vacc/Pf 0.5 Ml Vial SQ 08/06/23 09:01 .ONCE ONE Ondansetron HCl 4 mg 08/04/23 08:36 Ondansetron Pf 4 Mg/2 Ml Vial IV Q6H PRN Nausea And Vomiting Ondansetron HCl 4 mg 08/04/23 08:36 Ondansetron 4 Mg Rapdis Tablet PO Q6H PRN Nausea And Vomiting Oxycodone/Acetaminophen 1 tab 01/17/24 08:36 Oxycodone Hcl/Acetaminophen 5mg/325mg PO Q4H PRN Pain Scale 4-6 Oxycodone/Acetaminophen 2 tab 08/04/23 08:36 Oxycodone Hcl/Acetaminophen 5mg/325mg PO Q4H PRN Pain Scale 7-10 Senna 17.2 mg 08/04/23 20:00 Sennosides 8.6 Mg Tablet PO QHS PRN Constipation Simethicone 80 mg 08/04/23 08:36 Simethicone 80 Mg Tab.Chew PO QID PRN Abdominal Distention Respiratory Oxygen Delivery Method Room Air Oxygen Delivery Method Room Air Oxygen Delivery Method Room Air Oxygen Delivery Method Room Air Oxygen Delivery Method Room Air Cardiology Heart Sounds Strong,Regular Renal Bladder Pattern Continent Bladder Pattern Continent
--- NOTE | 2023-08-06 07:45 | PM.OBPN ---
OB - PN: Subj Subjective Patient comments: no complaints and pain well controlled status: doing well Exam Constitutional Vital Signs, click to edit/add: Last Vital Signs Temp 98.0 F 08/05/23 23:27 Pulse 68 08/05/23 23:27 Resp 16 08/05/23 23:27 BP 128/62 08/05/23 23:27 Pulse Ox 96 08/04/23 10:53 O2 Del Method Room Air 08/05/23 23:27 Documenting provider has reviewed patient's vital signs: yes Common normals: no apparent distress Respiratory Common normals: normal respiratory effort and clear to auscultation bilaterally Cardio Common normals: regular rate and regular rhythm GI Common normals: Normal to inspection, nondistended, normoactive bowel sounds present Extremity Common normals: no calf tenderness Urinary Catheter Management Urinary Catheter Management Urethral: Cath placed during this visit: yes Urethral indwelling: Yes Reason for continuing: not indwelling catheter Insertion date: 08/04/23 Insertion time: 06:00 OB - PN: A/P Plan - day: 2 Plan: routine postop care, discharge home and other (fu 1wk) Time Spent with Patient Time: Total time spent is greater than 50% in coordination of care (as documented) at patient's floor/unit and/or counseling patient: Total time spent with greater than 50% in coordination of care (as documented) at patient's floor/unit and/or counseling patient: less than 15 minutes
[2023-08-06] MEDS: LABETALOL HCL 200 MG TABLET PO (09:00)
[2023-08-06] MEDS: LAMOTRIGINE 100 MG TABLET PO (09:00)
[2023-08-06] MEDS: DOCUSATE SODIUM 100 MG CAPSULE PO ×2 (09:13→20:12)
[2023-08-06 09:15] VITALS: BP 117/84; PULSE 80; RESP 16; TEMP 36.3
[2023-08-06] MEDS: IBUPROFEN 400 MG TABLET 800 MG PO ×2 (11:30→20:11)
[2023-08-06 16:45] VITALS: RESP 16
--- NOTE | 2023-08-06 19:28 | W.PC.ACHO ---
Registration Status: ADM IN Primary Language: S[place] Tomean Preferred Language: S[place]an Active Medications Generic Name Dose Route Start Last Admin Trade Name Freq PRN Reason Stop Dose Admin Al Hydroxide/Mg Hydroxide 2,400 mg 08/04/23 08:36 Magnesium Hydroxide 2,400 Mg/10 Ml Oral.Susp PO Q6H PRN Dyspepsia Docusate Sodium 100 mg 08/05/23 09:00 08/06/23 09:13 Docusate Sodium 100 Mg Capsule PO 100 mg BID KEVIN Administration Enoxaparin Sodium 40 mg 08/04/23 20:00 08/05/23 23:06 Enoxaparin Sodium 40 Mg/0.4 Ml Syringe SUBQ 40 mg Q24H KEVIN Administration Sodium Chloride 1,000 mls @ 125 mls/hr 08/04/23 08:45 Sodium Chloride 0.9% 1,000 Ml IV .Q8H KEVIN Ibuprofen 800 mg 08/04/23 08:36 08/06/23 11:30 Ibuprofen 400 Mg Tablet PO 800 mg Q8H PRN Administration Pain Labetalol HCl 200 mg 08/04/23 10:00 08/05/23 21:00 Labetalol Hcl 200 Mg Tablet PO 200 mg BID KEVIN Administration Lamotrigine 100 mg 08/04/23 10:00 08/05/23 21:00 Lamotrigine 100 Mg Tablet PO 100 mg BID [facility] Administration Ondansetron HCl 4 mg 08/04/23 08:36 Ondansetron Pf 4 Mg/2 Ml Vial IV Q6H PRN Nausea And Vomiting Ondansetron HCl 4 mg 08/04/23 08:36 Ondansetron 4 Mg Rapdis Tablet PO Q6H PRN Nausea And Vomiting Oxycodone/Acetaminophen 1 tab 08/04/23 08:36 Oxycodone Hcl/Acetaminophen 5mg/325mg PO Q4H PRN Pain Scale 4-6 Oxycodone/Acetaminophen 2 tab 08/04/23 08:36 Oxycodone Hcl/Acetaminophen 5mg/325mg PO Q4H PRN Pain Scale 7-10 Senna 17.2 mg 08/04/23 20:00 Sennosides 8.6 Mg Tablet PO QHS PRN Constipation Simethicone 80 mg 08/04/23 08:36 Simethicone 80 Mg Tab.Chew PO QID PRN Abdominal Distention Respiratory Oxygen Delivery Method Room Air Oxygen Delivery Method Room Air Oxygen Delivery Method Room Air Cardiology Heart Sounds Strong,Regular Renal Bladder Pattern Continent Bladder Pattern Continent Catheter Urinary Catheter Date of 08/04/23 Insertion [Urethral] Urinary Catheter Time of 06:00 Insertion [Urethral]
[2023-08-06 19:33] VITALS: BP 136/80; PULSE 81; TEMP 36.4
[2023-08-06 22:20] VITALS: BP 124/89; PULSE 69; RESP 16; TEMP 36.5
[2023-08-06] MEDS: ENOXAPARIN SODIUM 40 MG/0.4 ML SYRINGE SUBQ (22:24)
--- NOTE | 2023-09-06 | DS_ITS ---
DISCHARGE DATE: 09/06/2023 PRIMARY DIAGNOSES: 1. Intrauterine at 37 weeks. 2. Breech presentation. 3. Chronic hypertension. PROCEDURE: section. HOSPITAL COURSE: As expected. Please see chart for full details. LABORATORY DATA: Please see chart. COMPLICATIONS: None. DISCHARGE CONDITION: Stable. CONSULTATION: Anesthesia. DISCHARGE INSTRUCTIONS: 1. Diet: Regular. 2. Medications: a. Percocet 5/325 one to two p.o. every 4-6 hours p.r.n. pain. b. Motrin 800 one p.o. every 8 hours p.r.n. pain. 3. Followup in one week. Restrictions: Pelvic rest for 6 weeks. No heavy lifting. May drive when pain free and no longer on narcotics. MTDD
== END 2023-08-06 22:50 | disposition home or self-care (01) | DRG 788 ==
PROVIDERS: Admitting Provider Obstetrics & Gynecology; Visit Provider Obstetrics & Gynecology
PROC: 10D00Z1 Extraction of Products of Conception, Low, Open Approach (ICD-10-PCS; CPT 59514; principal; 2023-08-04 07:30)
DX: O10.92 Unspecified pre-existing hypertension complicating childbirth (principal); O32.1XX0 Maternal care for breech presentation, not applicable or unspecified; Z3A.37 37 weeks gestation of pregnancy; Z37.0 Single live birth; O99.892 Other specified diseases and conditions complicating childbirth; R56.9 Unspecified convulsions
CPT/HCPCS: 36415; 51702; 80307; 85025; 86850; 86900; 86901; 88307; 96372; 96374; 96375; 96376; J0690; J1650; J1885; J2274; J2371; J2405; J2590; J2765

== ENCOUNTER 2023-08-11 08:06 | Outpatient (OUT) | payer OTHER, SELFPAY ==
--- OUTSIDE RECORDS SUMMARY | 2023-08-11 08:14 | XMS_ITS | CCD ---
Author Name Unknown Address [address] [place] [address] Organization [facility] Care Team Providers Care Mannequin Wig Maker Name Role Phone Uriarte, Koffi A Unavailable [...] Care Provider Unavailable Unavailable Koffi Uriarte MD A Primary Care Provider Milagro Son Primary Care Physician Unavail able Dane Hassan Attending Unavailable Dane Hassan Admitting Unavailable BRENDAN BLANKENSHIP Attending Unavailable URIARTE, KOFFI A Primary Care Unavailabl [place] Mckinley Attending Unavailable URIARTE, KOFFI A Primary Care Unavailabl e KAVITA SWEET Referring Unavailable KOFFI URIARTE Primary Care Unavailabl e BRENDAN BLANKENSHIP Attending Unavailable SINGH, KOFFI Rosas Primary Care Unavailabl e Unavailable Unavailable ELSIE ., DR GONZALEZ Admitting Unavailable ELSIE ., DR GONZALEZ Attending Unavailable ELSIE ., DR GONZALEZ Consulting Unavailable ELSIE ., DR GONZALEZ Admitting Unavailable ELSIE ., DR GONZALEZ Attending Unavailable HILLER, DR HAYLIE Garcia Consulting Unavailable ELSIE ., DR GONZALEZ Consulting Talon Uriarte, Dr. Koffi Rosas Primary Care Dario Uriarte, Dr. Koffi Rosas Attending Dario Uriarte, Dr. Koffi Rosas Referring Koffi Oquendo MD Primary Care Provider Koffi Uriarte MD Unavailable NEDRA CALDERON Attending Unavailable KOFFI URIARTE Primary Care Unavailabl e SHIMA RODAS Attending Unavailable CLARK, SHIMA Attending Unavailable WILLIS CHEN Attending Unavailable SHIMA RODAS Attending Unavailable SHIMA RODAS Attending Unavailable Willis Chen Attending Unavailable Willis Chen Admitting Unavailable Allergies Allergy Classification Reported Allergen(s) Allergy Type Date of Onset Reaction(s) Facility (1 source) No Known Medication Allergies; Translations: [No Known Medication Allergies] Propensity to adverse reactions (disorder) [facility] Repository Medications Current Medications Medication Drug [...] 120 tab(s), Refills(s) 0, [facility]: [id number] Start Date: 06/05/19 Status: Ordered ondansetron 4 mg oral tablet (1 source) Serotonin-3 Receptor Antagonist Start: 02-11-20 take 2 tablets by mouth twice daily [...] 1 bruce, Vaginal, BID, 70 gram, Refill(s) 0, [id number] Start Date: 06/09/19 Stop Date: 06/14/19 [...] sources) Seizure; Translations: [Other convulsions] Onset: 10-02-2022 3 Episodic Comment on above: seeing Dr. Calderon. [...] 10-02-2022 10-02-2022 Episodic Unclassified (1 source) R07.9 08836/8 Onset: 05-04-2017 Unclassified (5 sources) Patient encounter status; Translations: [Encounter for audiology evaluation] NEGATED: Highlighted row has not occurred!Residual codes; unclassified (17 sources) Disease Episodic Results Test Name Value Interpretation Reference Range Facility [facility] 08-04-2023 L Specimen: [id number] Received: 08/04/23 Status: LAZARA Le Num: [id number] Spec Type: Surgical Subm Dr: Willis Chen Tissues: A Placenta - 3rd Trimester (Greater than 28 weeks) (PLACENTA) Procedures: HE/3, Gross/Micro L5 Age/ Patient Sex Location Account Attending Physician Princess Cantu 27/F [place] [id number] Willis Chen SPEC NUM: [id number] RECD: 08/04/23 STATUS: LAZARA [place] NUM: [id number] JOSE: 08/04/[address] [facility] [address]: Willis Chen ENTERED: 08/04/23 [facility] DR: Giselle,Lab SPEC TYPE: Surgical DEPT: ROSS HERNANDEZ ORDERED: HE/3, Gross/Micro L5 ORDERED: HE/3, Gross/Micro L5 Pathological Diagnosis Placenta, With:? Umbilical Cord: Three Vessel Cord, Unremarkable. Membranes: Unremarkable. Placenta: Mature Chorionic Villi, Consistent With Third Trimester Placenta. No Parenchymal Lesions Are Identified. Clinical Information G2, P0, 9/9, gestational age 37 weeks 2 days, breech presentation, hypertension, seizures Gross Description Received in formalin labeled with the patient's name, date of and placenta is a 19.2 x 16 cm payan placenta which following fixation and after removal of the membranes and umbilical cord is 448 g. The membranes are glistening, wright, and translucent. The surface is glistening blue-rosa. The attached 13 cm long by 1.2 cm average diameter segment of three-vessel umbilical cord is eccentrically inserted 3 cm from the edge of the placental disc. The maternal surface appears intact and complete. Sectioning demonstrates soft red-brown grossly unremarkable parenchyma up to 3.1 cm in thickness. Plastics Repairer sections are submitted in 3 cassettes as follows: A1 - membranes, umbilical cord, and decidua basalis A2 - Central placenta full-thickness A3 - Peripheral placenta, full-thickness ---- Specimen: [id number] Received: 08/04/23 Status: LAZARA Pamelareagan Num: [id number] Spec Type: Surgical Subm Dr: Willis Chen Tissues: A Placenta - 3rd Trimester (Greater than 28 weeks) (PLACENTA) Procedures: HE/3, Gross/Micro L5 ---- Patient: Princess Cantu [id number] (Continued) ---- Specimen: [id number] Received: 08/04/23 (Continued) Signed (signature on file) Juliet Sykes MD 08/08/232229 ---- Specimen: [id number] Received: 08/04/23 Status: LAZARA Le Num: [id number] Spec Type: Surgical Subm Dr: Willis Chen Tissues: A Placenta - 3rd Trimester (Greater than 28 weeks) (PLACENTA) Procedures: DELMY/3, Gross/Danitza L5 ---- Patient: CantuPrincess [id number] (Continued) ---- Specimen: [id number] Received: 08/04/23 (Continued) CPT Codes 28011 ---- ---- Specimen: [id number] Received: 08/04/23 Status: LAZARA Le Num: [id number] Spec Type: Surgical Subm Dr: Willis Chen Tissues: A Placenta - 3rd Trimester (Greater than 28 weeks) (PLACENTA) Procedures: HE/3, Gross/Micro L5 ---- Patient: Princess Cantu [id number] (Continued) ---- Signed (signature on file) Juliet Sykes MD 08/08/23 2230 Normal [facility] DHEA SERUMon 11-20-2022 Dehydroepiandrosterone (DHEA) 656 ng/dL Normal 31-701 [facility] Comment on above: Performed By: #### D LAMAR. #### [facility] [address] [place] [address] Dr. Vish Brown ANTI-MULLERIAN HORMONEon Anti-Mullerian Hormone (AMH) 4.47 ng/mL Normal [facility] Comment on above: Result Comment: For assays employing antibodies, the possibility exists for interference by heterophile antibodies in the samples.1 1.Favio Correia. Interferences in Immunoassays - still a threat. Clin. Chem. 2000; 46: 2638-9553. This test was developed and its performance characteristics determined by [employer]. It has not been cleared or approved by the Food and Drug Administration. Reference Range: Females 26 - 30y: 1.03 - 11.10 Median 4.20 AMH concentrations of >= 1.06 ng/mL is correlated with a better response to ovarian stimulation, produced more retrievable oocytes and higher odds of live according to Gabi et al. Fertility and Sterility. 2010: 94:3777-5970. The current AMH test method correlates with [...] tumor. Performed By: #### L BRUNA #### [facility] [address] [place] [address] Dr. Vish Brown DHEA-SULFATEon 11-17-2022 DHEA-Sulfate 449.0 ug/dL Critically high 84.8-378.0 [facility] Comment on above: Performed By: #### L BRUNA #### [facility] [address] [place] [address] Dr. Vish Brown ESTRADIOLon 11-17-2022 Estradiol 34.3 pg/mL Normal [facility] Comment on above: Result Comment: Adul t Female: Follicular phase 12.5 - 166.0 Ovulation phase 85.8 - 498.0 Luteal phase 43.8 - 211.0 Postmenopausal <6.0 - 54.7 1st trimester 215.0 - >4300.0 Ele ECLIA methodology Performed By: #### E CHLOE #### [facility] [address] [place] [address] Dr. Vsih Brown FSHon 11-17-2022 FSH 6.1 mIU/mL Normal [facility] Comment on above: Result Comment: Adul t Female: Follicular phase 3.5 - 12.5 Ovulation phase 4.7 - 21.5 Luteal phase 1.7 - 7.7 Postmenopausal 25.8 - 134.8 Performed By: #### [facility] #### [facility] [address] [place] [address] Dr. Vish Brown LUTEINIZING HORMONE (LH)on 0 11-17-2022 LH 4.5 mIU/mL Normal [facility] Comment on above: Result Comment: Adul t Female: Follicular phase 2.4 - 12.6 Ovulation phase 14.0 - 95.6 Luteal phase 1.0 - 11.4 Postmenopausal 7.7 - 58.5 Performed By: #### L BRUNA #### [facility] [address] [place] [address] Dr. Vish Brown PROGESTERONEon 11-17-2022 Progesterone 0.8 ng/mL Normal [facility] Comment on above: Result Comment: Foll icular phase 0.1 - 0.9 Luteal phase 1.8 - 23.9 Ovulation phase 0.1 - 12.0 First trimester 11.0 - 44.3 Second trimester 25.4 - 83.3 Third trimester 58.7 - 214.0 Postmenopausal 0.0 - 0.1 Performed By: #### P TASNEEM #### [facility] [address] [place] [address] Dr. Vish Brown CBC AUTO DIFFon 11-16-2022 BASO # 0.0 103/ul Normal 0.0-0.1 [facility] Comment on above: Performed By: #### L BCLH #### [facility] [address] [place] [address] Dr. Vish Brown Basophils/100 WBC (Bld) 0.5 % Normal 0.2-2.0 [facility] Comment on above: Performed By: #### L BCLH #### [facility] [address] [place] [address] Dr. Vish Brown EO # 0.3 103/ul Normal 0.0-0.7 [facility] Comment on above: Performed By: #### L BCLH #### [facility] [address] [place] [address] Dr. Vish Brown Eosinophils/100 WBC (Bld) 4.0 % Normal 0.9-7.0 [facility] Comment on above: Performed By: #### L BCLH #### [facility] [address] [place] [address] Dr. Vish Brown Erythrocyte distribution width (RBC) [Ratio] 12.0 % Normal 11.0-15.0 [facility] Comment on above: Performed By: #### L BCLH #### [facility] [address] [place] [address] Dr. Vish Brown Hematocrit (Bld) [Volume fraction] 39.1 % Normal 36.0-48.0 [facility] Comment on above: Performed By: #### L BCLH #### [facility] [address] [place] [address] Dr. Vish Brown Hemoglobin (Bld) [Mass/Vol] 13.0 g/dL Normal 12.0-16.0 [facility] Comment on above: Performed By: #### L BCLH #### [facility] [address] [place] [address] Dr. Vish Brown IG # 0.02 10e3/ul Normal 0.00-0.03 [facility] Comment on above: Performed By: #### L BCLH #### [facility] [address] [place] [address] Dr. Vish Brown IG % 0.3 % Normal 0.0-0.5 [facility] Comment on above: Performed By: #### L BCLH #### [facility] [address] [place] [address] Dr. Vish Brown LYMPH # 2.5 103/ul Normal 1.2-3.8 [facility] Comment on above: Performed By: #### L BCLH #### [facility] [address] [place] [address] Dr. Vish Brown Lymphocytes/100 WBC (Bld) 32.4 % Normal 20.5-60.0 [facility] Comment on above: Performed By: #### L BCLH #### [facility] [address] [place] [address] Dr. Vish Brown MANUAL DIFF REQ NO Normal [facility] Comment on above: Performed By: #### L BCLH #### [facility] [address] [place] [address] Dr. Vish Brown MCH (RBC) [Entitic mass] 29.9 pg Normal 26.7-34.0 [facility] Comment on above: Performed By: #### L BCLH #### [facility] [address] [place] [address] Dr. Vish Brown MCHC (RBC) [Mass/Vol] 33.2 g/dL Normal 29.9-35.2 [facility] Comment on above: Performed By: #### L BCLH #### [facility] [address] [place] [address] Dr. Vish Brown MCV (RBC) [Entitic vol] 89.9 fL Normal 81.0-99.0 [facility] Comment on above: Performed By: #### L BCLH #### [facility] [address] [address] [address] Vish Brown MONO # 0.6 103/ul Normal 0.3-0.8 [facility] Comment on above: Performed By: #### L BCLH #### [facility] [address] [address] [address] Vish Brown Monocytes/100 WBC (Bld) 7.4 % Normal 1.7-12.0 [facility] Comment on above: Performed By: #### L BCLH #### [facility] [address] [place] [address] Dr. Vish Brown NEUT # 4.3 103/ul Normal 1.4-6.5 [facility] Comment on above: Performed By: #### L BCLH #### [facility] [address] [place] [address] Dr. Vish Brown Neutrophils/100 WBC (Bld) 55.4 % Normal 43.0-75.0 [facility] Comment on above: Performed By: #### L BCL #### [facility] [address] [place] [address] Dr. Vish Brown Platelet mean volume (Bld) [Entitic vol] 9.0 fL Critically low 9.5-13.5 [facility] Comment on above: Performed By: #### L BCL #### [facility] [address] [place] [address] Dr. Vish Brown PLT 277 103/ul Normal 150-450 [facility] Comment on above: Performed By: #### L BCLH #### [facility] [address] [place] [address] Dr. Vish Brown RBC 4.35 106/ul Normal 4.20-5.40 [facility] Comment on above: Performed By: #### L BCLH #### [facility] [address] [place] [address] Dr. Vish Brown WBC 7.7 103/ul Normal 4.0-11.0 [facility] Comment on above: Performed By: #### L BCLH #### [facility] [address] [address] [address] Vish Brown FREE T4on 11-16-2022 Free T4 [Mass/Vol] 1.08 ng/dL Normal 0.76-1.46 [facility] Comment on above: Performed By: #### F T4 #### [facility] [address] [place] [address] Dr. Vish Brown GLYCOHEMOGLOBIN A1Con 2022 ADA RECOMMENDATION SEE BELOW Normal [facility] Comment on above: Result Comment: ADA RECOMMENDED LIMIT 4.0 - 6.0 ADA THERAPEUTIC TARGET < 7.0 ACTION SUGGESTED > 7.0 Performed By: #### A 1C #### [facility] [address] [place] [address] Dr. Vish Brown Glucose [Mass/Vol] 94 mg/dL Normal [facility] Comment on above: Performed By: #### A 1C #### [facility] [address] [place] [address] Dr. Vish Brown HbA1c (Bld) [Mass fraction] 4.9 % Normal 4.5-6.2 [facility] Comment on above: Performed By: #### A 1C #### [facility] [address] [place] [address] Dr. Vish Brown PREG QUANT HCGon 11-16-2022 HCG QUANT <[address] [facility] Comment on above: Performed By: #### P REGQNT, TSH #### [facility] [address] [place] [address] Dr. Vish Brown HCG RANGE SEE BELOW Normal [facility] Comment on above: Result Comment: 5-50 0.2-1 WEEK 50-500 1-2 WEEKS 100-5,000 2-3 WEEKS 500-10,000 3-4 WEEKS 1,000-50,000 4-5 WEEKS 10,000-100,000 5-6 WEEKS 15,000-200,000 6-8 WEEKS 10,000-100,000 2-3 MONTHS Performed By: #### P REGQNT, TSH #### [facility] [address] [place] [address] Dr. Vish Brown TSHon 11-16-2022 TSH 2.030 uIU/mL Normal 0.358-3.740 [facility] Comment on above: Performed By: #### P REGQNT, TSH #### [facility] [address] [place], [place] [address] Dr. Vish Brown 19-49 Yearson 07-31-2022 19-49 [...] Occasional alcohol (more content not included)... Normal [facility] Tobacco Screening.on 023 Adult depression screening assessment No [employer] Phone: Fall risk assessment a) No falls within the last year [employer] Phone: Tobacco use status CPHS b) No M [employer] Phone: B-HCG SerPl-aCncon 2 HCG.beta subunit Qn m[IU]/mL Normal <5.0 [facility] Comment on above: Order Comment: Speci men Type: BLOOD SPECIMENOrdering Facility: [facility] Address: [address] [place] [phone] Result Comment: Soledad kyle Performed By: #### G CCT #### [address] [address] BACTERIAL VAGINOSIS AMPLIFIC ATIONon 04-16-2022 Lactobacillus crispatus+gasseri+jense james + Gardnerella vaginalis + Atopobium vaginae rRNA HUMERA+probe Ql (Vag fld) Negative Normal Negative for bacterial vaginosis [facility] Comment on above: Order Comment: Speci men Type: SWAB Ordering Facility: [facility] Address: [address] [place] [address] Performed By: #### C VTV, BVAMP #### [facility] CLIA [id number] [address] [place] [address] OF ONI C. trachomatis+N. gonorrhoea e DNA HUMERA+probe Ql (Unsp spec)on 04-16-2022 C. trachomatis DNA HUMERA+probe Ql (Unsp spec) Negative Normal Negative for Chlamydia trachomatis by amplificaton [facility] Comment on above: Order Comment: Speci men Type: SWAB Ordering Facility: [facility] Address: [address] [place] [address] Performed By: #### C VTV, BVAMP #### [facility] CLIA [id number] [address] [place] [address] N. gonorrhoeae DNA HUMERA+probe Ql (Unsp spec) Negative Normal Negative for Neisseria gonorrhoeae by amplification [facility] Comment on above: Order Comment: Speci men Type: SWAB Ordering Facility: [facility] Address: [address] [place] [address] Performed By: #### C VTV, BVAMP #### [facility] CLIA [id number] [address] [place] [address] [place] MITCH / TRICHOMONAS AMPLIF ICATIONon 04-16-2022 MITCH / TRICHOMONAS AMPLIFICATION MITCH SPECIES GROUP RNA: Negative for Mitch species MITCH GLABRATA RNA: Negative for Mitch glabrata TRICH VAG AMPLIFICATION RNA: Negative for Trichomonas vaginalis by amplification Normal [facility] Comment on above: Performed By: #### C VTV, BVAMP #### [facility] CLIA [id number] [address] [place] [address] [place] CNCOon 04-16-2022 CNCO Letter Text Letter Text Normal [facility] CNOVon 04-16-2022 CNOV [facility] CANTUANNABEL SUMMERSN Alison ([id number]) 1995 F Date Time Provider Department 04/16/22 8:[address] AM [address] 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 I, Brendan Blankenship, have reviewed this information as documented for accuracy and performed all elements of history taking, and edited the record as necessary. 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 #:[id number] BACTERIAL VAGINOSIS AMPLIFICATION [SQBVAMP] Order #: [id number]. #:[id number] GC/CHLAMYDIA DNA DET [SQGCCAMP] Order #: [id number]. #:[id number] SYPHILIS TOTAL W/REFLEX [SQSYPHTX] Order #: [id number] FUTURE HIV 1 2 COMBO(AG/AB),WITH REFLEX TO DIFFERENTIATION [SQHIV12] Order #: [id number] FUTURE HEP C AB IA W/CONF SCRN [DBZFAQ0N] Order #: [id number] FUTURE HEP B SURF AG SCRN [SQHBSAG] Order #: [id number] FUTURE Prescriptions as of 04/16/2022 - lamoTRIgine [...] Status:Closed by BRENDAN BLANKENSHIP on 04/16/22 Normal [facility] HBV surface Ab IA Ql (S)on 0 04-16-2022 HBV surface Ag Ql (S) Negative Normal Negative [facility] Comment on above: Order Comment: Speci men Type: BLOOD SPECIMENOrdering Facility: [facility] Address: [address] [place] [address] Performed By: #### G CCT #### [facility] [address] [place] [address] HCV Ab Ser Qlon 04-16-2022 HCV Ab Ql (S) Negative Normal Negative [facility] Comment on above: Order Comment: Speci men Type: BLOOD SPECIMEN Ordering Facility: [facility] Address: [address] [place] [address] Result Comment: The result suggests no evidence of active infection with Hepatitis C virus. Should recent infection be suspected, repeat testing may be considered 4-6 weeks after this draw. Performed By: #### 1 6128-1 #### [facility] CLIA [id number] [address] [place] [address] [facility] HIV 1+2 Ab IA Qlon 2 HIV 1 and 2 Ab IA.rapid Nom Normal [facility] Comment on above: Order Comment: Speci men Type: BLOOD SPECIMENOrdering Facility: [facility] Address: [address] [place] [address] Result Comment: Test not indicated. Performed By: #### G CCT #### [address] [place] [phone] HIV 1+2 Ab+HIV1 p24 Ag IA Ql Non-Reactive Normal Nonreactive [facility] Comment on above: Order Comment: Speci men Type: BLOOD SPECIMENOrdering Facility: [facility] Address: [address] [place] [address] Performed By: #### G CCT #### [address] [place] [phone] HIVINT Normal [facility] Comment on above: Order Comment: Speci men Type: BLOOD SPECIMENOrdering Facility: [facility] Address: [address] [place] [address] Result Comment: No e vidence of HIV-1 or HIV-2 infection. Should recent infection be suspected, repeat testing may be considered 2-3 weeks after this draw. [place] Rev. Code 3701.243(E): This information has been [...] diagnoses. Performed By: #### G CCT #### [address] [place] [phone] Reagin and Treponema pallidu m IgG and IgM [Interp]on 04-16-2022 SYPHILIS INTERPRETATION Cannot exclude r ecent Treponemal infection if specimen collected within 7-10 days after appearance of suspect lesions or 2-3 weeks after an exposure. Clinical correlation is required. Normal [facility] Comment on above: Order Comment: Speci men Type: BLOOD SPECIMENOrdering Facility: [facility] Address: [address] [place] [address] Performed By: #### G CCT #### [address] [place] [address] T. pallidum IgG+IgM IA Ql (S) Non-Reactive Normal Nonreactive [facility] Comment on above: Order Comment: Speci men Type: BLOOD SPECIMENOrdering Facility: [facility] Address: [address] [place], [place] [phone] Performed By: #### G CCT #### [address] [place] [id number] Coding Summary.on 03-27-2022 Coding Summary. CD:[id number] Gh 0bWw+PGhlYWQ+RF5RCDJsY 62wkYTzgX2ES9hKVE3ZLXB UOUPHDR3CZW8hjPB9TVtgG 2VybiAv CakslSFuXF63SDk4ZBY1oX riKScjtM1rsPUqS2r1VrWf KH00cI77TYnmCIBiJdB0Dc ZpbjsgbWFy Y3stDeRupWUlIda+PHRhYm xlIHdpZHRoPScxMDAlJyBz wZlsUV9lTz5mYQMlJXUrfF xhcHNlOiBj h4lzHGTjLLteMH7laLaoJ1 CdoXN0SMKrn8y2Ey13hYB+ FXGeCIZ0dFjtVBcet325Sf Rsh6idDJZ4 dVHbYLbtWWU7Z11yf7S9CG IeYAIoBBX3vHU6jP1hoRei zglxL6XgrKNwJhP4YPI0iG EgxW5wrVfn pqbfjQ4bMgq+I56BCB6GIU BSXI5WSib5N6QmKhwjuHF+ DQ77FHKgDV24oEGxcFFhb3 ydtDk7BrGp TQLiWYJ2tHzaSZhyo1QfRB YaG68wiJLfc3P1GGDroEyi eZRvNiSidVW7yD4fMOxjph vrr6jjbjfe Vbusy8qvpq56vT37T24gVZ osCAJfFTX5TMOrZLSjnQzj qa4daC8bSn7+NLfwp0zkk8 duqJj4HvGd SPLyjeEbkNijISJ9t2ZcXa 48Y2GgdSkoe8TrQuz1ls17 sLXkx6P1aGV4KPylVILmeT 8bGHbxIoF6 NTXlXqAcwL17xZOnXKxcIh 6bdYeiyIcpUN3kTVXhuwpz TRKhyD0nUQZioTJezOsaJA 4wNTBpbjtm o760LlWxQON7KVVmgEXoA4 QpaG1hBoLcLTCrQPDkN0Qo uOTcPClmR288RZxjUdE8SN WbejPyI0Tz IQEuqCmkRzY4f8T4Fm8Qt5 HhnulmUGW4ZHyrSZF9BoK9 MaDeTcF4K1EiWzl5ZEDpnD kvHE2bG7In AVGimnphkhokkSX4GKUsFM HkeH41xHIpPVkiZp7hg0E8 e143OIXtMTZnzH84Tl6slP ogMTBwdCBU kQ2sknifu0jimzgpUkZnSP HpCOt2FSb4SQPgsHjuHiOi PKD1JbW5FGB8dIQofR2ecU oocbsosF5n Oyc+R46taK1pHXA4NRI8kp twBNLgjlIhYS06JS36K0Qs PjwvdGFibGU+PGRpdiBzdH zhFM2sBwYc h8ssg7WwQOrvM9GvXCGwBH drBfs6AOWrBPQ3mAA9oS1s SLNwWOjgx7U7zNL9K8Fbil Bily9rx7uh WHEdKDunO46baTFgm2G9AQ GecFG0ZBItcZpeHiYfuR43 Oyc+TPGbaIuox8EtEgeos7 txp3yhjVy8 YkIqUHSupcTptGjkCQL8s6 KpXc41L14eVJdcAPYiRAEh ASVgXGYizQqnja0quZ9hQp 8+PGNvbCB3 tRY5vS2oWTHvBnF7JNhoA3 50WqMpuRCfCtdqk3yxo7md yLt0IsGpSXJknjOtcLafMO K3m9NqNy19 N24kTKflLOVpREMjMTAxNN TcgPhvbt9ngQ4jAa5+PC9j q7snrg10dQ60nGE+PHRkIH W8aLlmZIom JJZyaN9bMJnrQwH5AZHeEd FcwQ14sZMyWAcdNb3qfIna xPepWZ8bDPSnshpdc736Jq Noy2kbRHQr xDLvSKmyHUA8V19vq6R2IR WyCQBnLTW4cHR3fR9yaBdy bjogbGVmdDsgdmVydGljYW wqOFrkG613 IHRvcDsnPlBhdGllbnQgTm YbBRu7Q3LtNtx6YBCpiQpu WK6axBVwEUydSi7bdSujqG ieQE2mFXNw rfald284GsQbp5vkTDOndE FaBEcnRXI4L12vg7R5HTTq FAEtLHF5hMX6hN6mwPiwup ogbGVmdDsg cxFkbQlrFLpgVZufS688TO RvcDsnPkJpcnRoIERhdGU6 VU57BK45aCTyd2I9eKO6D1 BhZGRpbmct yxwimOZ9BBAtPGCbcM38Jl 5rnEjlIb1qAPHeLOM7SMDb iOWxL9LnzU3hNxXmQFAlQQ XqQ3GmxPWw DYazA757PWrwCoU5LBDsyh TnE3YmCNEwrSthApZ8r6M5 Xg2NK9G5CY44TX16sFTtv6 V3iGK2A0Cb CHExcjvxqoxcqRW0BBSmEG WvmA68Ek1ilAsxNi6hFLSv KYB5ECLqaHFpJ6NhhN6dWj AjMDAwMDAw V0TcfWQwYRwiR914UOdsOo Y5AIFeakMrJ2NfITBrhRkq CjQ9y3M7Hg4LIIj5WM73DR 17rFMqx8C3 dBX5W5LwGUKgxhlkofgdkX T1CGUfJVMrnZ33Il1diXlj Gy1cLKXsWOR9QRAjtXUvC3 AyrX6kBqQe XUWgIZNhO5WvvMPtDJhqV2 96YHeeGdJ2ENCebaIpX6Si FDSymQcuZoA6o7Z4Gd9JYQ MnSC14HRG3 tOH9CJ46CW79U0BmZxbgfX FibGU+PHRhYmxlIHdpZHRo IYrfIEGiWpHtzThtRG9mVp 9yZGVyLWNv sHlsxWBwUcOyy2etRMFdTE blYM0mzQpjX8HluNI9DJUu m1h8Va11V87yS3TkzTM+PG CzcKP3oXZ1 mY3nAuRqXcW3FVluZ452Cd CdcRUiStsqf8axi4ykiXm4 YgI4FJPzksBjfMjmMZZ9r1 WhZd32I83y IHdpZHRoPSIxNSUiIHZhbG qmou2bwA2aDm1+PGNvbCB3 xOM0iK2yOyOuTkP5TCteM6 49InRvcCIv Bodqj8ufg9wzxEv5WkWnNH VpmuMspUhwLTM2u7CmKp62 W1SquDili3OeZek0od15mP Umm3X2iPA6 O6UhYCGqbiifsKWpdJtxZU 0cIXFrvdrwBTIseE6rDAKu T8a8QpBdHwA5RKpdR7Zqyg F8RWDhvCTk VBweBLF9U14zg4B4ECLlFJ CjGOV0fLM3rF8lzHxpveom bGVmdDsgdmVydGljYWwtYW cfT371NAPx nJjpNNZamJ4hLZHuxPQvbE rmUK2pCOEzfoooYxUDN9vm KK4LS0JUQIP9E9LsMst7FD CruMlhBA6z yUNqWCzgBx1laCqgvKezXN 9vNLBeqonlWZYygI2oQOXg gZYfsTkpBI4kDUXmcubun1 61DhSeAAR6 TEZbkORiD3RtzT1wTkDlMX XiTRAaH4KzyJExAAroO555 SGmbYiD7TPOdxrKzZ1GbUT FsaWduOiB0 n1A1Rk2wBt1sJx2vJZu5YQ 89JU78xPBkv8Y8jBU8A1Th OKNribfvkemksJO4YHVbCA RbdB35dFJn PDugUk5uc4Y3l827TBHvHM BpaF95Rb1qeXilGMFgkKLR aA5xxwswb4tkgdbmPnTbDU RhLNr0TXi0 TJCbnIhyKvIiUGX5FtU9CZ G1rEAyfZ1rvPhvepquoN3b Oyc+PpmyWBLicfU6M1ZzEe j5RFPxsUeu XZ0cePDhICyqCp7ceNymaU naZI2yNWHplajtEVVopZ1k PQYbdTUtlLlxII2mSJDbgq lop356BvPz AEE0RCBbzVAqL4XasN0zIa BlSTNcVWPiA9PocEEsRDrm B260LSsdLcS3HKGyzlTxD5 FsLWFsaWdu HsL9e9G0Ih3KAR4wlGV2V9 FiTxl4KDJdeKwcOY1ijKHi IWpoKx0yxPssxHpwHV4kKO BpbjtwYWRk rE5zXQPweNPsiPewCR7jFK Lvtdqhe811XkHjTTK2WZPz hSUwJ6WlzY8mIxSeMTGoJT XvB9WxeHNe FXrkY772IFqtRiX3ABRceo ByM0RuIKPnaSgyGfE4u4T4 Jc8HqAFhCYFaER77AP02BE 96X1PeVgtm dGFibGU+PHRhYmxlIHdpZH XlRGurRZPgWqYlfKgaSQ9z Gw1eDIGeYKYkbRnypPFdLt Bdj0ouFKOz BQblLB0snStfJ9DvzGY1VS Roc0h4Vh14J67sJ7DahDP+ HTBawEE8kKP5nR0uJbKaYm U8QXkpW203 TrOdzQXwMgphv0smd0wwuQ s9OwNjTHRgsqHpcXhdSLZ6 l7VyQe74C65dVUshFYXaWL IyMCUiIHZh tZgsjx4ibZ9aRw3+PGNvbC S0qUO3wG4zXqCrYdK2JQbs Y779EsKcxXYxMlpaQ45zS9 JvdXA+PHRy Xhr1XPWjhHrsPF8gkCLlUD thLv0fSEJ1WgSmDuNjMUwl Z2TkLVNcrjmigcxmkHO4RV PzRXRvxB22 Xw7bbWanDx3zGAAqZQN3HE JelHSaX8UkgE5sBcPiPIHq TBEcM0FerWVwWDpfR246MC ylFhT3KXYe peXeJ2VuHZNfyTbmWiA5d0 B2Ej5RiCzqxWTeDR3qEaKl OEb8M7BnUyh0HSAhrBpuCT 0ncGFkZGlu Mp8vkQamxDnfTW6bVVNdcl phd019VmDhv9kdYSZgzRVo QLgkQBH1N68hu8A1BIOwFF JtWAK3wYZ6 oN3iwMezblxlnORpxNqjys XcmIyzZJzqTNqfL301PUYa bXquHfUTKke7U2FyTak0SU ZvkZnxVS8t bJXmPRylSf6pyQfvrQusHK 2xOVCyuuewz852ZjSbk2hz RLDbhRSkASntUSK1T17wd4 D1WRJlQYMe TRD6sXH3uG0zuDboarxjvP VmdDsgdmVydGljYWwtYWxp O063YHExlIbkHc4VXzy2I4 TjLhs2RNVp hPeuHC8crEAkLVqqMg0tbG hsuBmkND5lMDNzekbki244 CdHmt7jgYUOzbLFbFBfqJL F7O91id3D5 MLRgYSWyNJY3eER2hN3fdL lnbjogbGVmdDsgdmVydGlj BJlhWFntW624NMThyGedSe BheWVyOjwv dGQ+PF85oc54A0VcMvvyPj g6FBKgXGC6tJZ8qU4wIGJz EBjlf9Q7vUN2M0QfqeMdwj 0mm9dsYROg ZTog (more content not included)... Normal [facility] Quanton 03-24-2022 HCG.beta subunit Qn 1 m[IU]/mL Normal 1-3 [facility] Comment on above: Result Comment: GEST ATIONAL AGE HCG RANGE (mIU/mL) NON- <1-3 0.2-1 WEEKS 5-50 1-2 WEEKS 50-500 2-3 WEEKS 100-5,000 3-4 WEEKS 500-10,000 4-5 WEEKS 1,000-50,000 5-6 WEEKS 10,000-100,000 6-8 WEEKS 15,000-200,000 8-12 WEEKS 10,000-100,000 Performed By: #### 2 [id number] #### [facility] [address] [place] [address] CHEMISTRYOrdered By: SYSTEM SYSTEM on 03-24-2022 HCG.beta subunit Qn 1 m[IU]/mL Normal 1 - 3 mIU/mL FTM [facility]) PRINCESS CANUT ([id number]) 1995 F Date Time Provider Department 03/24/[address] [facility] During your visit today, we [...] HCG and move appt sooner. Kavita Sweet, 03/24/2022 11:40 AM Signed please call patient [...] Fully Assessed Reason for Visit: Bleeding With [27101] Primary Visit Diagnosis:Bleeding in early [O20.9] Order(s):HCG QUANTITATIVE [SQHCGQT] Order #: [id number] FUTURE Prescriptions as of 03/24/2022 - metroNIDAZOLE [...] BMI 30-34.9 [E66.9] 07/04/2021 Encounter Status:Closed by BRNEDAN SOUZA on 03/24/22 [facility] Consent for Treatmenton Consent for Treatment [id number] 0CD:127 [facility] Physician Orderon 03-24-2022 Physician Order [id number] 0CD:127 [facility] CNPNon 03-19[facility]20[facility] PRINCESS CANTU ([id number]) 1995 F Date Time Provider Department 03/19/22 [place] [facility] During your visit today, we recorded the [...] Status:Closed by MARY ONOFRE on 03/19/22 Normal [facility] Office Visit (Neuro-General) on 12-24-2021 [...] or bowel/bladder incontinence. She was taken to [facility] in [place]. She had lab work and a CT [...] DAILY. Vitals Vital Signs Recorded: 24Dec2021 11:32AM Apkccheyfxu89.1 F Heart Rate54 Jwukhqdd830 Mzvksesuy32 Height5 ft 9 in Vifrnh714 lb 1.6 oz BMI Jyyslivctu24.03 kg/m2 BSA Calculated2.11 Tobacco Useb) No Fall Screeninga) No falls within the last year O2 Alvkutqgzm965, RA Physical Exam Constitutional: General appearance: no [...] Dec 24 2021 11:37AM EST (Author) Normal Saavn Tobacco Screening.on 022 Fall risk assessment a) [...] Nov 17 2021 1:34PM EST (Author) Normal Saavn Tobacco Screening.on 022 Adult depression screening assessment No MP-[facility]amesh [facility] Phone: Fall risk assessment a) No falls within the last year [facility] Phone: Tobacco use status CPHS b) No M P-[facility]amesh n [facility] Phone: Bact Vag Amplificationon Bact Vag Amplification Positive Criticall y abnormal Negative for bacterial vaginosis [facility] Comment on above: Performed By: #### G CCT #### [facility] [address] [place], [place] [address] CNOVon 09-09-2021 [facility] PRINCESS CANTU ([id number]) 1995 F Date Time Provider Department 09/09/21 10:[address] 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 Portions of this record were documented by the Molding Supervisor. I, Brendan Blankenship, have reviewed this information as documented for accuracy and performed all elements of history taking, and edited the record as necessary. 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 [...] Order(s):MITCH / TRICHOMONAS AMPLIFICATION [SQCVTV] Order #: [id number] BACTERIAL VAGINOSIS AMPLIFICATION [SQBVAMP] Order #: [id number] GC/CHLAMYDIA DNA DET [SQGCCAMP] Order #: [id number] metroNIDAZOLE (FLAGYL) 500 mg tabletTake 1 tablet [...] Encounter Status:Closed (more content not included)... Normal [facility] Mitch Trich Amplon 022 Mitch glabrata RNA Negative Normal Negative [facility] [place] [facility] Comment on above: Performed By: #### G CCT #### [facility] [address] [phone] Mitch sp group RNA Negative Normal Negative [facility] [place] [facility] Comment on above: Performed By: #### G CCT #### [facility] [address] [phone] Trichomonas RNA Negative Normal [facility] Comment on above: Performed By: #### G CCT #### [facility] [address] [phone] GC/Chlamydia Amplifon 2021 Chlamydia Amplif Negative Normal [facility] Comment on above: Performed By: #### G CCT #### [facility] [address] [phone] GC Amplification Negative Normal [facility] Comment on above: Performed By: #### G CCT #### [place] [id number] [place] [phone] GC/Chlam Amp Source Cervix Normal [facility] Comment on above: Performed By: #### G CCT #### [place] [id number] [place] [address] Bact Vag Amplificationon Bact Vag Amplification Negative Normal Negat ko for bacterial vaginosis [facility] Comment on above: Performed By: #### C VTV, BVAMP #### [facility] CLIA [id number] [address] [place] [address] [facility] CNOVon 07-04-2021 CNOV Office Visit (OBGYCC ) CANTUANNABEL SUMMERSN Alison ([id number]) 1995 [facility] Date Time Provider Department 07/04/21 4:00 PM [facility] During your visit today, we recorded the following information about you: Pulse Blood pressure Weight Height 74/minute 131/86 95.7 kg 1.727 m Last Period 06/07/21 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 APRN.LABORER [place]UM[place] 07/04/2021 4:39 PM Signed Princess is a [...] Ectopic0 Multiple0 Live Births0 Comment: Menarche 10 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 Avoid scratching, scented pads/tampons/toilet papers, cranberry juice, bubble baths, and intercourse until symptoms are relieved. NO douching. If you shave, use a new razor at least twice monthly. 5) Follow up one year or sooner as needed 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 APRN.JUSTINE Dwyer APRN.CNP 07/04/2021 4:08 PM Signed ACOG Screening Guidelines The following health screening schedule is recommended by the [employer] (ACOG). Some of these tests may be ordered or performed by your primary care doctor. Pap test screening The pap test loo (more content not included)... Normal [facility] Mitch Trich Amplon 07-04-2 021 Mitch glabrata RNA Negative Normal Negative [facility] [place] [facility] Comment on above: Performed By: #### C VTV, BVAMP #### [facility] CLIA [id number] [address] [place] [address] [place] Mitch sp group RNA Negative Normal Negative [facility] [place] [facility] Comment on above: Performed By: #### C VTV, BVAMP #### [facility] CLIA [id number] [address] [place] [address] [place] Trichomonas RNA Negative Normal [facility] Comment on above: Performed By: #### C VTV, BVAMP #### [facility] CLIA [id number] [address] [place] [address] [place] GC/Chlamydia Amplifon 2020 Chlamydia Amplif Negative Normal [facility] Comment on above: Performed By: #### G CCT #### [place] [address] GC Amplification Negative Normal [facility] Comment on above: Performed By: #### G CCT #### [place] [address] GC/Chlam Amp Source Cervix Normal [facility] Comment on above: Performed By: #### G CCT #### [place] [address] Tobacco Screening.on 021 Fall risk assessment a) No falls within the last year MP-Neurolog y-[facility]ug[facility] SJW DO Work Phone: Tobacco use status [facility] b) No M P-Neurolog y-[place] SJW DO Work Phone: GC + Chlamydia [...] trachomatis and Neisseria gonorrhoeae testing on specific jdo-YGT-hevpifec sample types (female urine samples) have been validated by [facility]. This laboratory is certified by CLIA to perform high complexity testing. Samples from all other sites are not validated for this method. N. gonorrhoeae rRNA HUMERA+probe Ql (Unsp spec) Negative Negative [employer] Work Phone: Comment on above: SOURCE: Urine The AP KELSIE Combo 2 assay is FDA-approved for Chlamydia trachomatis and Neisseria gonorrhoeae testing on female endocervical and vaginal swabs, ThinPrep liquid pap samples, male urine samples and urethral swabs. Performance characteristics for Chlamydia trachomatis and Neisseria gonorrhoeae testing on specific rkb-KZC-fipmomyp sample types (female urine samples) have been validated by [facility]. This laboratory is certified by CLIA to perform high complexity testing. Samples from all other sites are not validated for this method. TSHon 12-24-2020 TSH Qn 2.30 m[IU]/L Normal 0.44 - 3.98 [facility] Comment on above: Result Comment: TSH testing is performed using different testing methodology at [facility] than at other [facility]. Direct result comparisons should only be made within the same method. Performed By: #### T SH2 #### [address] [address] TSH - Thyroid Stimulating Ho rmjean, Serumon 12-24-2020 TSH Qn 2.30 m[IU]/L See Below MP-[facility] [employer]-[facility]amesh [facility] Work Phone: Comment on above: Reference Range: 0.4 4 - 3.98 TSH testing is performed using different testing methodology at [facility] than at other [facility]. Direct result comparisons should only be made within the same method. Tobacco Screening.on 021 Fall risk assessment a) No falls within the last year [facility] [employer] Phone: Tobacco use status CPHS b) No M P-[facility] [employer] Work Phone: CBCon 08-14-2020 Erythrocyte distribution width (RBC) [Ratio] 13.2 % Normal 11.5 - 14.5 [facility] Comment on above: Performed By: #### C BC #### [address] [address] Hematocrit (Bld) [Volume fraction] 39.5 % Normal 36.0 - 46.0 [facility] Comment on above: Performed By: #### C BC #### [address] [address] Hemoglobin (Bld) [Mass/Vol] 13.0 g/dL Normal 12.0 - 16.0 [facility] Comment on above: Performed By: #### C BC #### [address] [address] MCHC (RBC) [Mass/Vol] 32.9 g/dL Normal 32.0 - 36.0 [facility] Comment on above: Performed By: #### C BC #### [address] [address] MCV (RBC) [Entitic vol] 91 fL Normal 80 - 100 [facility] Comment on above: Performed By: #### C BC #### [address] [address] NUCLEATED RBC 0.0 /100 WBC Normal 0.0 - 0.0 [facility] Comment on above: Performed By: #### C BC #### [address] [address] Platelets (Bld) [#/Vol] 235 10*3/uL Normal 150 - 450 [facility] Comment on above: Performed By: #### C BC #### [address] [address] RBC 4.33 x10E12/L Normal 4.00 - 5.20 [facility] Comment on above: Performed By: #### C BC #### [address] [address] WBC (Bld) [#/Vol] 5.8 10*3/uL Normal 4.4 - 11.3 [facility] Comment on above: Performed By: #### C BC #### [address] [address] COMPREHENSIVE PANELon 2020 Albumin [Mass/Vol] 4.7 g/dL Normal 3.4 - 5.0 [facility] Comment on above: Performed By: #### C MP #### [address] [address] ALP [Catalytic activity/Vol] 53 U/L Normal 33 - 110 [facility] Comment on above: Performed By: #### C MP #### [address] [address] ALT [Catalytic activity/Vol] 41 U/L Normal 7 - 45 [facility] Comment on above: Result Comment: Desiree ents treated with Sulfasalazine may generate falsely decreased results for ALT. Performed By: #### C MP #### [address] [address] Anion gap [Moles/Vol] 10 mmol/L Normal 10 - 20 [facility] Comment on above: Performed By: #### C MP #### [address] [address] AST [Catalytic activity/Vol] 27 U/L Normal 9 - 39 [facility] Comment on above: Performed By: #### C MP #### [address] [address] Bilirubin [Mass/Vol] 0.6 mg/dL Normal 0.0 - 1.2 [facility] Comment on above: Performed By: #### C MP #### [address] [address] Calcium [Mass/Vol] 9.5 mg/dL Normal 8.6 - 10.3 [facility] Comment on above: Performed By: #### C MP #### [address] [address] Chloride [Moles/Vol] 105 mmol/L Normal 98 - 107 [facility] Comment on above: Performed By: #### C MP #### [address] [address] Creatinine [Mass/Vol] 0.93 mg/dL Normal 0.50 - 1.05 [facility] Comment on above: Performed By: #### C MP #### [address] [place] [address] GFR- AM. >60 Normal >60 [facility] Comment on above: Result Comment: CALC ULATIONS OF ESTIMATED GFR ARE PERFORMED USING THE MDRD STUDY EQUATION FOR THE IDMS-TRACEABLE CREATININE METHODS. CLIN CHEM 2007;53:766-72 Performed By: #### C MP #### [address] [address] GFR-NON AM. >60 Normal >60 [facility] Comment on above: Performed By: #### C MP #### [address] [address] Glucose [Mass/Vol] 94 mg/dL Normal 74 - 99 [facility] Comment on above: Performed By: #### C MP #### [address] [address] HCO3 (Bld) [Moles/Vol] 28 mmol/L Normal 21 - 32 [facility] Comment on above: Performed By: #### C MP #### [address] [address] Potassium [Moles/Vol] 4.4 mmol/L Normal 3.5 - 5.3 [facility] Comment on above: Performed By: #### C MP #### [address] [address] Protein [Mass/Vol] 7.3 g/dL Normal 6.4 - 8.2 [facility] Comment on above: Performed By: #### C MP #### [address] [address] Sodium [Moles/Vol] 139 mmol/L Normal 136 - 145 [facility] Comment on above: Performed By: #### C MP #### [address] [address] Urea nitrogen [Mass/Vol] 13 mg/dL Normal 6 - 23 [facility] Comment on above: Performed By: #### C MP #### [address] [address] Hematologyon 08-14-2020 Hematocrit (Bld) [Volume fraction] 39.5 % See Below -Neurolog y-[place] SJW DO Work Phone: Comment on above: Reference Range: 36. 0 - 46.0 Hemoglobin (Bld) [Mass/Vol] 13.0 g/dL See Below -Neurolog y-[place] SJW DO Work Phone: Comment on above: Reference Range: 12. 0 - 16.0 MCV (RBC) [Entitic vol] 91 fL 80 - 100 M P-Neurolog y-[place] SJW DO Work Phone: Platelets (Bld) [#/Vol] 235 {x10E9/L} 150 - 450 -Neurolog y-[place] SJW DO Work Phone: RBC (Bld) [#/Vol] 4.33 {x10E12/L} See Below -Neurolog y-[place] SJW DO Work Phone: Comment on above: Reference Range: 4.0 0 - 5.20 WBC (Bld) [#/Vol] 5.8 {x10E9/L} 4.4 - 11.3 MP-N eurolog y-[place] SJW DO Work Phone: WBC (Bld) [#/Vol] 0.0 {/100_WBC} 0.0 - 0.0 - Neurolog -[place] SJW DO Work Phone: LAMOTRIGINE- LAMICTALon - LAMOTRIGINE- LAMICTAL 6.4 ug/mL Normal 2.5 - 15.0 [facility] Comment on above: Performed By: #### L AMOT #### [facility] [address] [place] [address] Lamotrigine Level, Serumon 0 08-14-2020 Lamotrigine [Mass/Vol] 6.4 ug/mL 2.5 - 15.0 MP -Neurolog y-Eugene SJW DO Work Phone: Metabolic Panelon 08-14-2020 ALP [Catalytic activity/Vol] 53 U/L 33 - 110 MP-Neurolog y-[place] SJW DO Work Phone: Anion gap [Moles/Vol] 10 mmol/L 10 - 20 MP- Neurolog y-[place] SJW DO Work Phone: Bilirubin [Mass/Vol] 0.6 mg/dL 0.0 - 1.2 MP-N eurolog y-[place] SJW DO Work Phone: Calcium [Mass/Vol] 9.5 mg/dL 8.6 - 10.3 MP-Jozef rolog y-Eugene SJW DO Work Phone: Chloride [Moles/Vol] 105 mmol/L 98 - 107 MP-N eurolog y-[place] SJW DO Work Phone: [phone] CO2 [Moles/Vol] 28 mmol/L 21 - 32 MP-Neurol og y-Eugene SJW DO Work Phone: Creatinine [Mass/Vol] 0.93 mg/dL See Below MP- Neurolog y-[place] SJW DO Work Phone: Comment on above: Reference Range: 0.5 0 - 1.05 Glucose [Mass/Vol] 94 mg/dL 74 - 99 MP-Jozef rolog y-[place] SJW DO Work Phone: Potassium [Moles/Vol] 4.4 mmol/L 3.5 - 5.3 MP- Neurolog y-[place] SJW DO Work Phone: Protein [Mass/Vol] 7.3 g/dL 6.4 - 8.2 MP-Jozef rolog y-[place] SJW DO Work Phone: Sodium [Moles/Vol] 139 mmol/L 136 - 145 [facility] [facility] DO Work Phone: Urea nitrogen [Mass/Vol] 13 mg/dL 6 - 23 [facility] DO Work Phone: Otheron 08-14-2020 Albumin BCP dye [Mass/Vol] 4.7 g/dL 3.4 - 5.0 -[facility] DO Work Phone: ALT With P-5'-P [Catalytic activity/Vol] 41 U/L 7 - 45 -[facility] DO Work Phone: Comment on above: Patients treated wit h Sulfasalazine may generate falsely decreased results for ALT. AST With P-5'-P [Catalytic activity/Vol] 27 U/L 9 - 39 -[facility] DO Work Phone: Erythrocyte distribution width (RBC) [Ratio] 13.2 % See Below [facility] [place] DO Work Phone: Comment on above: Reference Range: 11. 5 - 14.5 MCHC (RBC) [Mass/Vol] 32.9 g/dL See Below - [facility] DO Work Phone: Comment on above: Reference Range: 32. 0 - 36.0 >60 >60 [facility] [place] DO Work Phone: Comment on above: CALCULATIONS OF MICHAEL MATED GFR ARE PERFORMED USING THE MDRD STUDY EQUATION FOR THE IDMS-TRACEABLE CREATININE METHODS. CLIN CHEM 2007;53:766-72 MRI BRAIN W WO CONTRASTon There are no acute intracranial changes, no evidence of ischemia or hemorrhage. There are no regions of signal abnormality. There are no areas of abnormal enhancement after contrast administration. [facility], [place] EXAMINATION: MRI BRA IN W WO CONTRAST [...] The calvarium and soft tissues are unremarkable. [facility] [place], [place] Incoming Radiant Results From [facility] - 05/09/2020 3:02 PM EDT EXAMINATION: MRI [...] areas of abnormal enhancement after contrast administration. [facility], [place] MRI BRAIN W WO CONTRAST EXAMINATION: MRI [...] David Winter MD 05/09/20 Final result Normal [facility] CBC With Platelet and Differ entialon 04-19-2020 Basophils (Bld) [#/Vol] 0.1 10*3/uL Normal 0.0-0.2 [facility] Comment on above: Performed By: #### C BCWD #### [facility] [address] [place] [address] Basophils/100 WBC (Bld) 0.4 % Normal [facility] Comment on above: Performed By: #### C BCWD #### [facility] [address] [place] [address] Eosinophils (Bld) [#/Vol] 0.5 10*3/uL Normal 0.0-0.7 [facility] Comment on above: Performed By: #### C BCWD #### [facility] [address] [place] [address] Eosinophils/100 WBC (Bld) 4.2 % Normal [facility] Comment on above: Performed By: #### C BCWD #### [facility] [address] [place] [address] Erythrocyte distribution width (RBC) [Ratio] 12.5 % Normal 11.5-14.5 [facility] Comment on above: Performed By: #### C BCWD #### [facility] [address] [place] [address] Hematocrit (Bld) [Volume fraction] 39.4 % Normal 37.0-47.0 [facility] Comment on above: Performed By: #### C BCWD #### [facility] [address] [place] [address] Hemoglobin (Bld) [Mass/Vol] 13.3 g/dL Normal 12.0-16.0 [facility] Comment on above: Performed By: #### C BCWD #### [facility] [address] [place] [address] Lymphocytes (Bld) [#/Vol] 3.2 10*3/uL Normal 1.0-4.8 [facility] Comment on above: Performed By: #### C BCWD #### [facility] [address] [place] [address] Lymphocytes/100 WBC (Bld) 26.9 % Normal [facility] Comment on above: Performed By: #### C BCWD #### [facility] [address] [place] [address] MCH (RBC) [Entitic mass] 29.8 pg Normal 27.0-31.3 [facility] Comment on above: Performed By: #### C BCWD #### [facility] [address] [place] [address] MCHC (RBC) [Mass/Vol] 33.8 % Normal 33.0-37.[address] [facility] Comment on above: Performed By: #### C BCWD #### [facility] [address] [place] [address] MCV (RBC) [Entitic vol] 88.4 fL Normal 82.0-100.0 [facility] Comment on above: Performed By: #### C BCWD #### [facility] [address] [place] [address] Monocytes (Bld) [#/Vol] 0.8 10*3/uL Normal 0.2-0.8 [facility] Comment on above: Performed By: #### C BCWD #### [facility] [address] [place] [address] Monocytes/100 WBC (Bld) 6.8 % Normal [facility] Comment on above: Performed By: #### C BCWD #### [facility] [address] [place] [address] Neutrophils (Bld) [#/Vol] 7.3 10*3/uL Critically high 1.4-6.5 [facility] Comment on above: Performed By: #### C BCWD #### [facility] [address] [place] [address] Neutrophils/100 WBC (Bld) 61.7 % Normal [facility] Comment on above: Performed By: #### C BCWD #### [facility] [address] [place] [address] Platelets (Bld) [#/Vol] 314 10*3/uL Normal 130-400 [facility] Comment on above: Performed By: #### C BCWD #### [facility] [address] [place] [address] RBC (Bld) [#/Vol] 4.45 10*6/uL Normal 4.20-5.40 [facility] Comment on above: Performed By: #### C BCWD #### [facility] [address] [place] [address] WBC (Bld) [#/Vol] 11.9 10*3/uL Critically high 4.8-10.8 [facility] Comment on above: Performed By: #### C BCWD #### [facility] [address] [place] [address] CT HEAD WO CONTRASTon 2019 CT HEAD [...] De Jesus DO 04/19/20 Final result Normal [facility] Comprehensive Metabolic Pane crescencio 04-19-2020 Albumin [Mass/Vol] 4.9 g/dL Critically high 3.5-4.6 M [facility] Comment on above: Performed By: #### C MP #### [facility] [address] [place] [address] ALP [Catalytic activity/Vol] 40 U/L Normal 40-130 [facility] Comment on above: Performed By: #### C MP #### [facility] [address] [place] [address] ALT [Catalytic activity/Vol] 17 U/L Normal 0-33 [facility] Comment on above: Performed By: #### C MP #### [facility] [address] [place] [address] Anion gap [Moles/Vol] 14 mmol/L Normal 9-[address] [facility] Comment on above: Performed By: #### C MP #### [facility] [address] [place] [address] AST [Catalytic activity/Vol] 17 U/L Normal 0-35 [facility] Comment on above: Performed By: #### C MP #### [facility] [address] [place] [address] Bilirubin [Mass/Vol] mg/dL Normal 0.2-0.7 [facility] Comment on above: Performed By: #### C MP #### [facility] [address] [place] [address] Calcium [Mass/Vol] 10.0 mg/dL Critically high 8.5-9.9 [facility] Comment on above: Performed By: #### C MP #### [facility] [address] [place] [address] Chloride [Moles/Vol] 101 mmol/L Normal 95-107 [facility] Comment on above: Performed By: #### C MP #### [facility] [address] [place] [address] CO2 [Moles/Vol] 24 mmol/L Normal 20-31 [facility] Comment on above: Performed By: #### C MP #### [facility] [address] [place] [address] Creatinine [Mass/Vol] 0.87 mg/dL Normal 0.50-0.[address] [facility] Comment on above: Performed By: #### C MP #### [facility] [address] [place] [address] GFR/1.73 sq M predicted among blacks MDRD (S/P/Bld) [Vol rate/Area] mL/min/{1.73_m2} Normal >60 [facility] Comment on above: Result Comment: >60 mL/min/1.73m2 EGFR, calc. for ages 18 and older using the MDRD formula (not corrected for weight), is valid for stable renal function. Performed By: #### C MP #### [facility] [address] [place] [address] GFR/1.73 sq M.predicted MDRD (S/P/Bld) [Vol rate/Area] mL/min/{1.73_m2} Normal >60 [facility] Comment on above: Result Comment: >60 mL/min/1.73m2 EGFR, calc. for ages 18 and older using the MDRD formula (not corrected for weight), is valid for stable renal function. Performed By: #### C MP #### [facility] [address] [place] [address] Globulin (S) [Mass/Vol] 3.1 g/dL Normal 2.3-3.5 [facility] Comment on above: Performed By: #### C MP #### [facility] [address] [place] [address] Glucose [Mass/Vol] 94 mg/dL Normal 70-99 [facility] Comment on above: Performed By: #### C MP #### [facility] [address] [place] [address] Potassium [Moles/Vol] 3.9 mmol/L Normal 3.4-4.[address] [facility] Comment on above: Performed By: #### C MP #### [facility] [address] [place] [address] Protein [Mass/Vol] 8.0 g/dL Normal 6.3-8.0 [facility] Comment on above: Performed By: #### C MP #### [facility] [address] [place] [address] Sodium [Moles/Vol] 139 mmol/L Normal 135-144 [facility] Comment on above: Performed By: #### C MP #### [facility] [address] [place] [address] Urea nitrogen [Mass/Vol] 12 mg/dL Normal 6-20 [facility] Comment on above: Performed By: #### C MP #### [facility] [address] [place] [address] Lactic Acidon 04-19-2020 Lactate [Moles/Vol] 1.8 mmol/L Normal 0.5-2.2 [facility] Comment on above: Performed By: #### L ACID #### [facility] [address] [place] [address] Prolactinon 04-19-2020 Prolactin 160.8 ng/mL Normal [facility] Comment on above: Result Comment: Defa ult Normal Ranges Female Male Non: 4.8-23.3 4.0-15.2 Performed By: #### P JAISNO #### [facility] [address] [place] [address] Serum HCG Qualitativeon HCG.beta subunit Qn Negative Normal [facility] Comment on above: Performed By: #### S HCG #### [facility] [address] [place] [address] Urinalysis, reflex to cultur emily 04-19-2020 Urine Reflexed to Culture Not Indicated Normal [facility] Comment on above: Performed By: #### U AR #### [facility] [address] [place] [address] Bilirubin Ql (U) Negative Normal Negative [facility] Comment on above: Performed By: #### U AR #### [facility] [address] [place] [address] Clarity (U) Clear Normal Clear [facility] Comment on above: Performed By: #### U AR #### [facility] [address] [place] [address] Color (U) Yellow Normal Straw/Sawyer [facility] Comment on above: Performed By: #### U AR #### [facility] [address] [place] [address] Glucose Ql (U) Negative Normal Negative [facility] Comment on above: Performed By: #### U AR #### [facility] [address] [place] [address] Hemoglobin Ql (U) Trace-intact Normal Negative [facility] Comment on above: Performed By: #### U AR #### [facility] [address] [place] [address] Ketones Ql (U) Negative Normal Negative [facility] Comment on above: Performed By: #### U AR #### [facility] [address] [place] [address] Leukocyte esterase Test strip Ql (U) Negative Normal Negative [facility] Comment on above: Performed By: #### U AR #### [facility] [address] [place] [address] Nitrite Ql (U) Negative Normal Negative [facility] Comment on above: Performed By: #### U AR #### [facility] [address] [place] [address] pH (U) 6.0 [pH] Normal 5.0-9.0 [facility] Comment on above: Performed By: #### U AR #### [facility] [address] [place] [address] Protein Ql (U) Negative Normal Negative [facility] Comment on above: Performed By: #### U AR #### [facility] [address] [place] [address] Specific gravity (U) [Rel density] 1.020 Normal 1.005-1.03 [facility] Comment on above: Performed By: #### U AR #### [facility] [address] [place] [address] Urobilinogen Qn (U) 0.2 {Alan'U}/dL Normal < 2.0 [facility] Comment on above: Performed By: #### U AR #### [facility] [address] [place] [address] Urine Microscopicon 10-02-20 20 Epithelial cells LM Ql (Urine sed) 0-2 Normal [facility] Comment on above: Performed By: #### U ARELY #### [facility] [address] [place] [address] RBC (U) [#/Vol] 0-2 Normal 0-2 [facility] Comment on above: Performed By: #### U ARELY #### [facility] [address] [place] [address] WBC (U) [#/Vol] 0-2 Normal 0-5 [facility] Comment on above: Performed By: #### U ARELY #### [facility] [address] [facility] [address] CBC Auto Differentialon 10-0 -2019 Basophils (Bld) [#/Vol] 0.1 10*3/uL 0 - 0.2 K/u L [place] Basophils/100 WBC (Bld) 0.4 % M [place] Eosinophils (Bld) [#/Vol] 0.5 10*3/uL 0 - 0.7 K/uL [place] Eosinophils/100 WBC (Bld) 4.2 % [place] Erythrocyte distribution width (RBC) [Ratio] 12.5 % 11.5 - 14.5 % [place] Hematocrit (Bld) [Volume fraction] 39.4 % 37 - 47 % [place] Hemoglobin (Bld) [Mass/Vol] 13.3 g/dL 12 - 16 g/dL [place] Interpretation and review of laboratory results Abnormal [place] Lymphocytes (Bld) [#/Vol] 3.2 10*3/uL 1 - 4.8 K/uL [place] Lymphocytes/100 WBC (Bld) 26.9 % [place] MCH (RBC) [Entitic mass] 29.8 pg 27 - 31.3 pg [place] MCHC (RBC) [Mass/Vol] 33.8 % 33 - 37 % [place] MCV (RBC) [Entitic vol] 88.4 fL 82 - 100 fL [place] Monocytes (Bld) [#/Vol] 0.8 10*3/uL 0.2 - 0.8 K /uL [place] Monocytes/100 WBC (Bld) 6.8 % [place] Neutrophils Absolute 7.3 K/uL High 1.4 - 6.5 K/uL [place] Neutrophils/100 WBC (Bld) 61.7 % [place] Platelets (Bld) [#/Vol] 314 10*3/uL 130 - 400 K /uL [place] RBC (Bld) [#/Vol] 4.45 10*6/uL [place] WBC (Bld) [#/Vol] 11.9 10*3/uL High 4.8 - 10.8 K/uL [place] Comprehensive Metabolic Pane crescencio 04-18-2020 Albumin [Mass/Vol] 4.9 g/dL High 3.5 - 4.6 g/dL [place] ALP [Catalytic activity/Vol] 40 U/L 40 - 130 U/L [place] ALT [Catalytic activity/Vol] 17 U/L 0 - 33 U/L [place] Anion gap [Moles/Vol] 14 mmol/L [place] AST [Catalytic activity/Vol] 17 U/L 0 - 35 U/L [place] Bilirubin Ql (U) <0.2 0.2 - 0.7 mg/dL [place] Calcium [Mass/Vol] 10.0 mg/dL High 8.5 - 9.9 mg/dL [place] Chloride [Moles/Vol] 101 mmol/L [place] CO2 [Moles/Vol] 24 mmol/L [place] Creatinine [Mass/Vol] 0.87 mg/dL 0.5 - 0.9 mg/dL [place] GFR >60.0 >60 [place] Comment on above: >60 mL/min/1.73m2 EG FR, calc. for ages 18 and older using the MDRD formula (not corrected for weight), is valid for stable renal function. GFR Non- >60.0 >60 [place] Comment on above: >60 mL/min/1.73m2 EG FR, calc. for ages 18 and older using the MDRD formula (not corrected for weight), is valid for stable renal function. Globulin (S) [Mass/Vol] 3.1 g/dL 2.3 - 3.5 g/ dL [place] Glucose [Mass/Vol] 94 mg/dL 70 - 99 mg/dL [place] Interpretation and review of laboratory results Abnormal [place] Potassium [Moles/Vol] 3.9 mmol/L [place] Protein [Mass/Vol] 8.0 g/dL 6.3 - 8 g/dL [place] Sodium [Moles/Vol] 139 mmol/L [place] Urea nitrogen [Mass/Vol] 12 mg/dL 6 - 20 mg/dL [place] HCG Qualitative, Serumon hCG Qual Negative [place] Lactic Acid, Plasmaon 2019 Lactate [Moles/Vol] 1.8 mmol/L 0.5 - 2. 2 mmol/L [place] Microscopic Urinalysison Epithelial Cells, UA 0-2 /HPF [place] RBC (U) [#/Vol] 0-2 [place] WBC, UA 0-2 [place] Urine Reflex to Cultureon Bilirubin Urine Negative Negative [place] Blood, Urine Trace-intact Negative [place] Clarity, UA Clear Clear [place] Color, UA Yellow Straw/Yellow [place] Glucose, Ur Negative Negative mg/dL [place] Ketones Ql (U) Negative Negative mg/dL [place] Leukocyte esterase Test strip Ql (U) Negative Negative [place] Nitrite, Urine Negative Negative [place] pH, UA 6.0 [place] Protein (U) [Mass/Vol] Negative Negative mg/d L [place] Specific [place], UA 1.020 [facility], [place] Urine Reflex to Culture Not Indicated [place] Urobilinogen, Urine 0.2 <2.0 E.U./dL [facility], [place] ECHOCARDIOGRAPHY REPORT () on 05-10-2017 ECHOCARDIOGRAPHY REPORT () PRINCESS CANTU [id number] VASCULAR LABReferring: Koffi Uriarte A.Reading: PARAS GARCIADZ Transthora cic EchocardiogramECHOALL - ECHO COMPLETE WITH 2D M MODE DOP CLR (1)CHEST PAIN: 126/76Chambers MMAo root diameter (MM) 2.6 cmAV cusp separation (MM) 1.9 cmChambers 2DRVIDd 2D 2.78 cmIVSd (2D) 0.824 cmLVPWd (2D) 1.02 cmLVIDd (2D) 4.14 cmLVIDs (2D) 2.93 cmLA dimension 2D 3 cmVolumes/MassLA Area 2 CH 13.5 cm2LA Area 4 CH 16.1 cm2LA Volume Indexed 21.05 ml/h5Mmzgceqjh/Systoli c FunctionMV E-wave Vmax 0.884 m/secMV deceleration time 193 msecMV A-wave Vmax 0.494 m/secLV septal e' Vmax 0.115 m/secLV lateral e' Vmax 0.189 m/secLV E:e' septal ratio 7.7 ratio [facility] [place] [place] PRINCESS CANTU [id number] [place] [address] [id number] 93Jackie Uriarte MDECHOCARDIOGRAPHY REPORTLV E:e' lateral ratio [...] no evidence ofpulmonic regurgitation. [facility] [place] [place] PRINCESS CANTU [id number] [place] [address] [id number] 93Jackie Uriarte MDECHOCARDIOGRAPHY REPORTPericardium:Ther e is no [...] function.This is a normal echocardiogram.PARAS CHOW05/10/2017 10:26:53 [facility] [place] [place] ANNABEL CANTUN [id number] [place] [address] [id number] 93Jackie Uriarte MDECHOCARDIOGRAPHY REPORT Normal [facility] BASIC METABOLIC PANELon 04-18 Anion gap 10 mmol/L Normal 6-18 [facility] Comment on above: Order Comment: Is pa tient fasting? YES Performed By: #### L BMP, LGFRP ####[facility] [address]dsa187[address] [place] [address] Calcium 9.6 mg/dL Normal 8.6-10.3 [facility] Comment on above: Order Comment: Is pa tient fasting? YES Performed By: #### L BMP, LGFRP ####[facility] [address] [place] [address] Chloride 101 mmol/L Normal 98-107 [facility] Comment on above: Order Comment: Is pa tient fasting? YES Performed By: #### L BMP, LGFRP ####[facility] [address] [place] [address] CO2 27 mmol/L Normal 21-32 [facility] Comment on above: Order Comment: Is pa tient fasting? YES Performed By: #### L BMP, LGFRP ####[facility] Drcrxqeccu69043 [place] [address] Creatinine 0.74 mg/dL Normal 0.5-1.05 [facility] Comment on above: Order Comment: Is pa tient fasting? YES Performed By: #### L BMP, LGFRP ####[facility] Tlo[address]beivv[address] [place] [address] Glucose mass conc 82 mg/dL Normal 74-99 [facility] Comment on above: Order Comment: Is pa tient fasting? YES Performed By: #### L BMP, LGFRP ####[facility] Fgtwbbsfji43387 [place] [address] Potassium molar conc 4.1 mmol/L Normal 3.5-5.3 [facility] Comment on above: Order Comment: Is pa tient fasting? YES Performed By: #### L BMP, LGFRP ####[facility] [address] [place] [address] Sodium 134 mmol/L Low 136-145 [facility] Comment on above: Order Comment: Is pa tient fasting? YES Performed By: #### L BMP, LGFRP ####[facility] [address] [place] [address] Urea nitrogen 14 mg/dL Normal 6-23 [facility] Comment on above: Order Comment: Is pa tient fasting? YES Performed By: #### L BMP, LGFRP ####[facility] [address] [place] [address] CBC AUTOon 05-04-2017 Erythrocyte distribution width Auto Ratio (RBC) 12.8 % Normal 11.5-14.5 [facility] Comment on above: Performed By: #### L CBC ####[facility] [address] [place], [place] [id number] Erythrocytes (RBC) 4.65 10*6/uL Normal 3.5-5.5 [facility] Comment on above: Performed By: #### L CBC ####[facility] [address] [place] [address] Hematocrit (HCT) 41.1 % Normal 36.0-48.0 [facility] Comment on above: Performed By: #### L CBC ####[facility] [address] [place] [address] Hemoglobin mass conc (Bld) 13.8 g/dL Normal 12.0-15.0 [facility] Comment on above: Performed By: #### L CBC ####[facility] Gitivbukif76713 [place] [address] MCH 29.7 pg Normal 25.4-34.6 [facility] Comment on above: Performed By: #### L CBC ####[facility] [address]fpzq86912 [place] [address] MCHC mass conc (RBC) 33.6 g/dL Normal 30.0-36.0 [facility] Comment on above: Performed By: #### L CBC ####[facility] [address] [place] [address] MCV 88.4 fL Normal 79.0-98.0 [facility] Comment on above: Performed By: #### L CBC ####[facility] [address] [place] [address] Platelet mean volume (PMV) 9.3 fL Normal 8.4-11.9 [facility] Comment on above: Performed By: #### L CBC ####[facility] [address] [place] [address] Platelets 277 10*3/uL Normal 140-440 [facility] Comment on above: Performed By: #### L CBC ####[facility] [address] [place] [address] WBC (Leukocytes) 6.1 10*3/uL Normal 3.9-11.0 [facility] Comment on above: Performed By: #### L CBC ####[facility] [address] [place] [address] GLOMERULAR FILTRATION RATE E [facility] 05-04-2017 eGFR (non-black) mL/min/{1.73_m2} Normal > 60 [facility] Comment on above: Order Comment: Is pa tient fasting? YES Performed By: #### L BMP, LGFRP ####[facility] [address] [place] [address] IF AMER > 90 Normal > 60 [facility] Comment on above: Order Comment: Is pa tient fasting? YES Result Comment: Effe ctive 12/12/14:CKD-EPI equation / based on IDMS traceable creatinine.Continue to use the CREAT CLR-DOSE ([place]groft-Gault)value for determining medication dose. Performed By: #### L CARLOSA LBERTO, LGFRP ####[facility] [address] [place] [id number] Vital Signs Date Time Vital Sign Value Performing Clinician Yael murguia 07-31-2022 10:54-0500 Body height 175.26 cm Koffi Rosas [address] [employer] Work Phone: [employer] Work Phone: 07-31-2022 10:54-0500 Body mass index (BMI) [Ratio] 31.01 kg/m2 Koffi Clementeson Work Phone: [employer] Work Phone: 07-31-2022 10:54-0500 Body surface area Derived from formula 2.11 m2 Koffi Rosas [address] [employer] Work Phone: [employer] Work Phone: 07-31-2022 10:54-0500 Body temperature 97.6 [degF] Koffi Clementeson Work Phone: [employer] Work Phone: 07-31-2022 10:54-0500 Body weight 95.26 kg Koffi Clementeson Work Phone: [employer] Work Phone: 07-31-2022 10:54-0500 Diastolic blood pressure 87 mm[Hg] Koffi Clementeson Work Phone: [facility]HH[facility] Work Phone: 07-31-2022 10:54-0500 Heart rate 76 /min Koffi Clementeson Work Phone: OI-LCXF-[place] Work Phone: 07-31-2022 10:54-0500 Respiratory rate 18 /min Koffi Clementeson Work Phone: mp-WSPC-[place] Work Phone: 07-31-2022 10:54-0500 Systolic blood pressure 121 mm[Hg] Koffi Uriarte Work Phone: [facility] Work Phone: 12-24-2021 11:32-0400 Body height 175.26 cm Kofif Uriarte Work Phone: [facility] DO Work Phone: 12-24-2021 11:32-0400 Body mass index (BMI) [Ratio] 31.03 kg/m2 Koffi Uriarte Work Phone: [facility] DO Work Phone: 12-24-2021 11:32-0400 Body surface area Derived from formula 2.11 m2 Koffi Uriarte Work Phone: [facility] DO Work Phone: 12-24-2021 11:32-0400 Body temperature 97.1 [degF] Koffi Uriarte Work Phone: [facility] DO Work Phone: 12-24-2021 11:32-0400 Body weight 95.3 kg Koffi Uriarte Work Phone: [facility] DO Work Phone: 12-24-2021 11:32-0400 Diastolic blood pressure 76 mm[Hg] Koffi Uriarte Work Phone: [facility] DO Work Phone: 12-24-2021 11:32-0400 Heart rate 54 /min Koffi Uriarte Work Phone: [facility] DO Work Phone: 06-08-2022 11:32-0400 SaO2% (BldA) [Mass fraction] 100 % Koffi Uriarte Work Phone: HA[facility]Nhdiayviu[facility] [facility] DO Work Phone: 12-24-2021 11:32-0400 Systolic blood pressure 114 mm[Hg] Koffi Uriarte Work Phone: KL-Gzuankcut-[place] [facility] DO Work Phone: 11-17-2021 13:08-0400 Body height 172.72 cm Koffi Uriarte Work Phone: FQ-YSIQ-[place] Work Phone: 11-17-2021 13:08-0400 Body mass index (BMI) [Ratio] 32.39 kg/m2 Koffi Uriarte Work Phone: LH-WRDI[facility] Work Phone: 11-17-2021 13:08-0400 Body surface area Derived from formula 2.1 m2 Koffi Uriarte Work Phone: IB-XIYT[facility] Work Phone: 11-17-2021 13:08-0400 Body temperature 97 [degF] Koffi Uriarte Work Phone: JH-JWEZ-[place] Work Phone: 11-17-2021 13:08-0400 Body weight 96.62 kg Koffi Uriarte Work Phone: BO-LIKM-[place] Work Phone: 11-17-2021 13:08-0400 Diastolic blood pressure 84 mm[Hg] Koffi Uriarte Work Phone: WL-ONWR-[place] Work Phone: 11-17-2021 13:08-0400 Heart rate 70 /min Koffi Uriarte Work Phone: OD-ZTID-[place] Work Phone: 11-17-2021 13:08-0400 Respiratory rate 18 /min Koffi Uriarte Work Phone: [facility] Work Phone: 11-17-2021 13:08-0400 SaO2% (BldA) [Mass fraction] 96 % Koffi Uriarte Work Phone: DG[facility]DK[facility] Work Phone: 11-17-2021 13:08-0400 Systolic blood pressure 126 mm[Hg] Koffi Uriarte Work Phone: WQ-RGPC-[place] Work Phone: 06-25-2021 10:54-0500 Body height 172.72 cm Koffi Uriarte Work Phone: LB[facility]pwvp[facility] Work Phone: 06-25-2021 10:54-0500 Body mass index (BMI) [Ratio] 32.08 kg/m2 Koffi Uriarte Work Phone: DA[facility]Bnlzazlko[facility] DO Work Phone: 06-25-2021 10:54-0500 Body surface area Derived from formula 2.09 m2 Koffi Uriarte Work Phone: [facility] DO Work Phone: 06-25-2021 10:54-0500 Body temperature 97.1 [degF] Koffi Uriarte Work Phone: VV-Ofgjvspvj[facility] DO Work Phone: 06-25-2021 10:54-0500 Body weight 95.71 kg Koffi Uriarte Work Phone: [facility] DO Work Phone: 06-25-2021 10:54-0500 Diastolic blood pressure 62 mm[Hg] Koffi Uriarte Work Phone: [facility] DO Work Phone: 06-25-2021 10:54-0500 Heart rate 67 /min Koffi Uriarte Work Phone: [facility] DO Work Phone: 06-25-2021 10:54-0500 Respiratory rate 18 /min Koffi Uriarte Work Phone: [facility] DO Work Phone: 06-25-2021 10:54-0500 SaO2% (BldA) [Mass fraction] 99 % Koffi Uriarte Work Phone: [facility] DO Work Phone: 06-25-2021 10:54-0500 Systolic blood pressure 131 mm[Hg] Koffi Uriarte Work Phone: [facility] DO Work Phone: 05-20-2021 15:59-0400 Body height 172.72 cm Koffi Uriarte Work Phone: XT-CGLL[facility] Work Phone: 05-20-2021 15:59-0400 Body mass index (BMI) [Ratio] 31.93 kg/m2 Koffi Uriarte Work Phone: [employer] Work Phone: 05-20-2021 15:59-0400 Body surface area Derived from formula 2.09 m2 Koffi Uriarte Work Phone: WN-HHHD-Xibs [place] Work Phone: 05-20-2021 15:59-0400 Body temperature 98.1 [degF] Koffi Uriarte Work Phone: MZ-LJQU-Qtza [place] Work Phone: 05-20-2021 15:59-0400 Body weight 95.26 kg Koffi Uriarte Work Phone: MV-MGHQ-Eoib [place] Work Phone: 05-20-2021 15:59-0400 Diastolic blood pressure 82 mm[Hg] Koffi Uriarte Work Phone: YH-IROO-Nhcp [place] Work Phone: 05-20-2021 15:59-0400 Heart rate 72 /min Koffi Uriarte Work Phone: LF-YFYJ-Memv [place] Work Phone: 05-20-2021 15:59-0400 Respiratory rate 16 /min Koffi Uriarte Work Phone: GH-MLXR-Hpqe [place] Work Phone: 05-20-2021 15:59-0400 Systolic blood pressure 122 mm[Hg] Koffi Uriarte Work Phone: EP-YFLE-Fqjr [place] Work Phone: 12-24-2020 14:45-0400 Body height 172.72 cm Koffi Uriarte Work Phone: LI-JBLF-Pnts [place] Work Phone: 12-24-2020 14:45-0400 Body mass index (BMI) [Ratio] 30.71 kg/m2 Koffi Uriarte Work Phone: RN-OLQQ-Nnne [place] Work Phone: 12-24-2020 14:45-0400 Body surface area Derived from formula 2.05 m2 Koffi Uriarte Work Phone: HQ-XPSQ-Qupb [place] Work Phone: 12-24-2020 14:45-0400 Body temperature 97.8 [degF] Koffi Uriarte Work Phone: CW-RIQZ-Gaqw [place] Work Phone: 12-24-2020 14:45-0400 Body weight 91.63 kg Koffi Uriarte Work Phone: AG-TNGD-Uaco [place] Work Phone: 12-24-2020 12:59-0400 Body height 172.72 cm Koffi Uriarte Work Phone: JA-IYYM-Zznk [place] Work Phone: 12-24-2020 12:59-0400 Body mass index (BMI) [Ratio] 30.71 kg/m2 Koffi Uriarte Work Phone: CC-EXTU-Ylyc [place] Work Phone: 12-24-2020 12:59-0400 Body surface area Derived from formula 2.05 m2 Koffi Uriarte Work Phone: FC-HYBG-Hpvy [place] Work Phone: 12-24-2020 12:59-0400 Body temperature 98.2 [degF] Koffi Uriarte Work Phone: TH-ECNO-Jqqq [place] Work Phone: 12-24-2020 12:59-0400 Body weight 91.63 kg Koffi Uriarte Work Phone: TC-YBXY-Udlc [place] Work Phone: 12-24-2020 12:59-0400 Diastolic blood pressure 90 mm[Hg] Koffi Uriarte Work Phone: CZ-DBCP-Emay [place] Work Phone: 12-24-2020 12:59-0400 Heart rate 75 /min Koffi Uriarte Work Phone: RE-DGMM-Fhay [place] Work Phone: 12-24-2020 12:59-0400 Respiratory rate 16 /min Koffi Uriarte Work Phone: [facility] Work Phone: 12-24-2020 12:59-0400 Systolic blood pressure 147 mm[Hg] Koffi Uriarte Work Phone: PI-CJLX-Gxol [place] Work Phone: 08-14-2020 13:26-0500 BMI (Body Mass Index) 29.04 kg/m2 Koffi Uriarte YH-Uysczhure-Ftan [place] SJW DO Work Phone: 08-14-2020 13:26-0500 Body Temperature 97.5 [degF] [facility] Work Phone: 08-14-2020 13:26-0500 Body weight 86.64 kg Koffi Uriarte [facility] DO Work Phone: 08-14-2020 13:26-0500 BP Diastolic 100 mm[Hg] Koffi Uriarte [facility] DO Work Phone: 08-14-2020 13:26-0500 BP Systolic 150 mm[Hg] Koffi Uriarte [facility] DO Work Phone: 08-14-2020 13:26-0500 BSA (Body Surface Area) 2 m2 Koffi Uriarte [facility] DO Work Phone: 08-14-2020 13:26-0500 Height 172.72 cm Koffi Uriarte [facility] Work Phone: 05-28-2020 15:24-0500 BMI (Body Mass Index) 28.59 kg/m2 Koffi Uriarte [facility] Work Phone: 05-28-2020 15:24-0500 Body Temperature 97.6 [degF] Koffi Uriarte [facility] Work Phone: 05-28-2020 15:24-0500 Body weight 85.28 kg Koffi Ruby Work Phone: 05-28-2020 15:24-0500 BP Diastolic 82 mm[Hg] Koffi Ruby Work Phone: 05-28-2020 15:24-0500 BP Systolic 122 mm[Hg] Koffi Ruby Work Phone: 05-28-2020 15:24-0500 BSA (Body Surface Area) 1.99 m2 Koffi Ruby Work Phone: 05-28-2020 15:24-0500 Height 172.72 cm Koffi Ruby Work Phone: 05-28-2020 15:24-0500 Pulse (Heart Rate) 70 /min Koffi Ruby Work Phone: 05-28-2020 15:24-0500 Respiratory Rate [...] BSA (Body Surface Area) 1.99 m2 Koffi RAGLAND-Jennifer Ruby Work Phone: 04-25-2020 16:01-0400 Height 172.72 cm Koffi MACHADOPC-Jennifer Ruby Work Phone: 04-25-2020 16:01-0400 Pulse (Heart Rate) 76 /min Koffi RAGLAND-Cordova Ruby Work Phone: 04-25-2020 16:01-0400 Respiratory Rate 16 /min Koffi RAGLAND-Jennifer Ruby Work Phone: 04-19-2020 00:00-0400 BP Diastolic 83 mm[Hg] [facility] 04-19-2020 00:00-0400 BP Systolic 144 mm[Hg] [facility] 04-18-2020 22:17-0400 BMI (Body Mass Index) 28.06 kg/m2 [facility], [place] 04-18-2020 22:17-0400 Body Temperature 98.91 [degF] [facility], [place] 04-18-2020 22:17-0400 Body weight 86.18 kg [facility] 04-18-2020 22:17-0400 Height 175.3 cm [place], [place] 04-18-2020 22:17-0400 Pulse (Heart Rate) 105 /min [facility], [place] 04-18-2020 22:17-0400 Pulse Oximetry 97 % [facility] 04-18-2020 22:17-0400 Respiratory Rate 16 /min [facility], [place] Encounters Encounter Date Encounter Type Care Provider Facility Start: 08-04-2023 End: 08-04-2023 ambulatory Willis Chen Facility:[facility] Start: 07-28-2023 End: 07-28-2023 ambulatory WILLIS ELSIE Not Available Start: 07-14-2023 End: 07-14-2023 ambulatory SHIMA RODAS Not Available Start: 06-30-2023 End: 07-01-2023 ambulatory SHIMA NORWOODEY Not Available Start: 06-16-2023 End: 06-16-2023 ambulatory SHIMA CLARK Not Available Start: 06-01-2023 End: 06-01-2023 ambulatory SHIMA NORWOODEY Not Available Start: 04-30-2023 End: 04-30-2023 ambulatory NEDRA CALDERON [facility] Ambulatory Start: 04-30-2023 End: 04-30-2023 Office outpatient visit 15 minutes Nedra Calderon MD Work Phone: [facility] Comment on above: Seizure (CMS/HCC) (P rimary Dx) Start: 11-25-2022 End: 11-26-[address] WILLIS CHNE . Facility: Start: 11-16-2022 End: 11-17-[address] WILLIS CHEN . Facility: Start: 07-31-2022 Current tobacco non- user cad cap copd pv dm Koffi Uriarte Work Phone: [employer] Work Phone: Start: 07-31-2022 Periodic preventive med est patient 18-39 yrs Koffi Uriarte Work Phone: [employer] Work Phone: Start: 07-31-[address] Koffi Uriarte Facility:[id number] Start: 04-16-2022 End: 04-17-2022 ambulatory KAVITA SWEET Facility:[facility] Start: 03-24-2022 End: 03-25-2022 ambulatory Dane Hassan Facility:[facility] Start: 03-24-2022 Telephone encounter Kavita lyons DO Work Phone: OB/Gynecology Comment on above: Bleeding With Pregna ncy Start: 03-24-2022 End: 03-24-2022 Patient encounter procedure Dane Hassan [facility] Start: 03-19-2022 Telephone encounter Georgia Nathan th [employer] Work Phone: CB/Gynecology Comment on above: Appointment Start: 03-18-2022 AUDIT Koffi Carlson ardson Work Phone: LO-Pviirvgre-Cwprcpc e [employer] DO Work Phone: Start: 02-03-2022 ambulatory Brendan Blankenship PA-C Work Phone: OB/Gynecology Comment on above: Bacteria Vaginosis Start: 01-02-2022 AUDIT Koffi Carlson ardson Work Phone: QQ-HQPQ-Eywp [place] Work Phone: Start: 12-24-2021 Office outpatient vi sit 15 minutes Koffi A Uriarte Work Phone: PK-Bbgqmwnah-Gptgjmt e [employer] DO Work Phone: Start: 11-17-2021 Office outpatient vi sit 15 minutes Koffi A Uriarte Work Phone: LT-UJRK-Mztn [place] Work Phone: Start: 09-29-2021 AUDIT Koffi Carlson ardson Work Phone: IE-UTVN-Gtca [place] Work Phone: Start: 09-09-2021 End: 09-09-2021 ambulatory BRENDAN BLANKENSHIP Facility:[facility] Start: 07-04-2021 End: 07-05-2021 ambulatory GEORGIA DWYER Facility:[facility] Start: 07-04-2021 Encounter for gynecological examination (general) (routine) without abnormal findings GEORGIA DWYER [facility] Start: 06-25-2021 Office outpatient vi sit 25 minutes Koffi A Uriarte Work Phone: ZQ-Sqzbymrqn-Jlokdit e [employer] DO Work Phone: Start: 05-22-2021 Chart Update Koffi Carlson ardson Work Phone: PE-ZGKC-Nkaa [place] Work Phone: Start: 05-20-2021 Office outpatient vi sit 25 minutes Koffi Clementeson Work Phone: NY-XRLQ-Btkv [place] Work Phone: Start: 05-20-2021 Patient encounter procedure Koffi Uriarte Work Phone: CT-UGIY-Gnti [place] Work Phone: Start: 03-28-2021 AUDIT Koffi hopkinson Work Phone: WV-GTQQ-Uatr [place] Work Phone: Start: 12-24-2020 Chart Update Koffi Carlson ardson Work Phone: CK-UZSS-Sygx [place] Work Phone: Start: 12-24-2020 Office outpatient vi sit 25 minutes Koffi Clementeson Work Phone: AM-QTQY-Puzb [place] Work Phone: Start: 08-14-2020 Patient encounter procedure Koffi Uriarte ON-Qyqdunjsm-Xczdjqo e [employer] DO Work Phone: Start: 06-11-2020 Patient encounter procedure Koffi Uriarte PM-Sxrjvsjug-Dtfexoa e SJW DO Work Phone: Start: 05-28-2020 Patient encounter procedure Koffi Uriarte KE-PRIQ-Kakp [place] Work Phone: Start: 05-09-2020 End: 05-12-2020 Patient encounter procedure [facility] Start: 05-09-2020 End: 05-11-2020 Subsequent hospital visit by physician Madeline Tidwell Rm 1 EEG Comment on above: 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 Work Phone: Start: 05-04-2017 Ambulatory Koffi Uriarte Fa cility:[facility] Patient encounter status Koffi Uriarte Work Phone: NF-GKTL-Upzm [place] Work Phone: Procedures Date Procedure Procedure Detail Performing Clinician Start: 12-24-2020 Thyrotropin [Units/volume] in Serum or Plasma Nedra Calderon MD Work Phone: Start: 08-14-2020 CBC W Auto Differential panel - Blood Koffi Uriarte Start: 08-14-2020 Comprehensive metabolic 2000 panel Koffi Clementeson Start: 08-14-2020 Quantitation drug not elsewhere specified [...] ANDERSON Start: 04-19-2020 Urinalysis microscopic only ZAC CHAUHANKY Start: 04-19-2020 Urnls dip stick/tablet rgnt auto w/o microscopy ZAC ANDERSON Start: 04-19-2020 Blood count complete auto&auto difrntl wbc ZAC ANDERSON Start: 04-19-2020 Comprehensive metabolic panel ZAC RA VERDUZCOSD Start: 04-19-2020 Gonadotropin chorionic qualitative ZAC MONICA Start: 04-19-2020 DIET NPO, NOW ZAC SINGHMULU Start: 04-19-2020 SEIZURE PRECAUTIONS ZAC MONIAC Start: 04-19-2020 SALINE LOCK IV ZAC MONICA Start: 04-18-2020 Assay of lactate Tu knutson Work Phone: Start: 04-18-2020 Urinalysis microscopic only Tu Reece [facility] Work Phone: Start: 04-18-2020 Urnls [...] f 2) Zoster Vaccines (1 of 2) [facility] Start: 02-17-2028 DTaP/Tdap/Td Vaccine s (8 - Td or Tdap) DTaP/Tdap/Td Vaccines (8 - Td or Tdap) [facility] Start: 08-02-2023 PHYSICAL, Provider: Koffi Uriarte, Status: Pen, Time: 9:00 AM PHYSICAL, Provider: Koffi Uriarte, Status: Pen, Time: 9:00 AM [facility] Work Phone: Start: 08-02-2023 End: 08-02-2023 Patient encounter procedure 08/02/2023 9:00 AM EST Office Visit [facility] [id number] [place] [id number] [place] [address] [place] [address] [facility] Start: 07-02-2023 PAP TESTING PAP TESTING [facility] Start: 07-02-2023 Screening for malignant neoplasm of cervix [facility] Start: 12-24-2022 VIRANA LUISA, Provider : Nedra Calderon, Status: Pen, Time: 10:00 AM ERIKA, Provider: Nedra Calderon, Status: Pen, Time: 10:00 AM PK-Ynmsidwfe-Vccrjpm e SJW DO Work Phone: Start: 05-22-2022 PHYSICAL, Provider: Koffi Uriarte, Status: Pen, Time: 9:50 AM PHYSICAL, Provider: Koffi Uriarte, Status: Pen, Time: 9:50 AM [facility] Work Phone: Start: 03-24-2022 End: 05-24-2022 Choriogonadotropin.bet a subunit [Units/volume] in Serum or Plasma HCG QUANTITATIVE Lab Routine Bleeding in early Expected: 03/24/2022, Expires: 05/24/2022 [facility] Work Phone: Comment on above: Expected: 03/24/2022 , Expires: 05/24/2022 Start: 03-19-2022 Influenza vaccination INFLUENZA (#1) [facility] Start: 12-24-2021 Thyroid stimulating hormone measurement TSH Level [facility] Start: 12-24-2021 FUVGENERAL, Provider : Nedra Calderon, Status: Pen, Time: 11:30 AM FUVGENERAL, Provider: Nedra Calderon, Status: Pen, Time: 11:30 AM DX-Xxygaakqi-Vsynxqm e SJW DO Work Phone: Start: 11-17-2021 FUV, Provider: Koffi Uriarte, Status: Pen, Time: 1:00 PM FUV, Provider: Koffi Uriarte, Status: Nikita, Time: 1:00 PM AS-DOBQ-Ygvb [place] Work Phone: Start: 07-01-2021 COVID-19 VACCINE (3 - Booster for Pfizer series) COVID-19 VACCINE (3 - Booster for Pfizer series) [facility] Start: 06-25-2021 FUVGENERAL, Provider : Nedra Calderon, Status: Pen, Time: 2:00 PM FUVGENERAL, Provider: Nedra Calderon, Status: Pen, Time: 2:00 PM VW-HEMX-Icom [place] Work Phone: Start: 06-25-2021 FUVGENERAL, Provider : Nedra Calderon, Status: Pen, Time: 11:00 AM FUVGENERAL, Provider: Nedra Calderon, Status: Pen, Time: 11:00 AM FZ-UERJ-Nczt [place] Work Phone: Start: 05-20-2021 FUV, Provider: Koffi Uriarte, Status: Pen, Time: 3:40 PM FUV, Provider: Koffi Uriarte, Status: Pen, Time: 3:40 PM OI-MLSW-Qfai [place] Work Phone: Start: 03-31-2021 FUV, Provider: Koffi Uriarte, Status: Pen, Time: 2:00 PM FUV, Provider: Koffi Uriarte, Status: Pen, Time: 2:00 PM OF-QAPA-Yhih [place] Work Phone: Start: 03-26-2021 COVID-19 Vaccine (3 - Pfizer series) COVID-19 Vaccine (3 - Pfizer series) [facility] Start: 03-19-2020 Influenza vaccination Flu vaccine (# 1) [place], [place] Start: 03-02-2018 DTaP/Tdap/Td vaccine (7 - Td) DTaP/Tdap/Td vaccine (7 - Td) [place] Start: 03-02-2018 Urine microalbumin profile DTAP,TDAP,TD (7 - Td or Tdap) [facility] Start: 2014 Screening for malignant neoplasm of cervix [facility] Start: 10-02-2011 HEPATITIS C SCREENING HEPATITIS C [facility] Start: 10-02-2011 Hepatitis C screening Hepatitis C [facility] Start: 10-02-2011 HIV SCREENING HIV SCREENING [facility] Start: 2008 [facility] screening [facility] [place] [place] Start: 2005 Adult depression screening assessment DEPRESSION SCREENING [facility] Start: 2004 HPV vaccine (1 - 2-dose series) HPV vaccine (1 - 2-dose series) [place], [place] Start: 04-09-1999 Varicella vaccination Varicell a Vaccines (1 of 2 - 2-dose childhood series) [facility] Start: 1994 Varicella vaccine (1 of 2 - 2-dose childhood series) Varicella vaccine (1 of 2 - 2-dose childhood series) [place], [place] Start: 1993 HIV screening HIV Screening [facility] Start: 1993 Lipid panel Lipid Panel [facility] Start: 1993 Yearly Adult Physical Yearly Adult P [facility] End: 04-18-2020 CT Head WO Contrast CT Head WO Contrast Imaging STAT Once for 1 Occurrences starting 04/18/2020 until 04/18/2020 [place] Comment on above: Once for 1 Occurrenc es starting 04/18/2020 until 04/18/2020 CT Head WO Contrast CT Head WO C ontrast Imaging STAT 04/18/2020 11:15 PM EDT [place] End: 04-18-2020 Prolactin Prolactin Lab STAT One Time for 1 Occurrences starting 04/18/2020 until 04/18/2020 [place] Comment on above: One Time for 1 Occur rences starting 04/18/2020 until 04/18/[address] AT 04/18/2020 11:17 PM EDT [place] OT-PUQM-Llbn La ke Work Phone: [facility] NEGATED: Highlighted row has been ruled out! Planned Goals not documented [employer] Work Phone: Immunizations Immunization Date Immunization Notes Care Provider Radha laura 04-21-2022 influenza, injectabl e, quadrivalent, preservative free Koffi A Uriarte Work Phone: [employer] Work Phone: 04-18-2021 influenza, injectabl e, quadrivalent, preservative free Koffi A [facility] Work Phone: [employer] Work Phone: 01-29-2021 Pfizer-BioNTech COVID-19 Vacc 30 MCG/0.3ML Intramuscular Suspension Koffi A [facility] Work Phone: [employer] Work Phone: 01-08-2021 Pfizer-BioNTech COVID-19 Vacc 30 MCG/0.3ML Intramuscular Suspension Koffi A [facility] Work Phone: [employer] Work Phone: 05-09-2019 Influenza, injectabl e, Madin Claudia Canine Kidney, preservative free, quadrivalent Koffi A [facility] Work Phone: [employer] Work Phone: 04-28-2018 influenza, injectabl e, quadrivalent, contains preservative Koffi A [facility] Work Phone: [employer] Work Phone: 02-16-2018 tetanus toxoid, redu diego diphtheria toxoid, and acellular pertussis vaccine, adsorbed Koffi A [facility] Work Phone: [employer] Work Phone: 05-06-2017 influenza, injectabl e, quadrivalent, preservative free Koffi A [facility] Work Phone: [employer] Work Phone: 01-14-2016 pneumococcal polysaccharide vaccine, 23 valent Koffi Clementeson Work Phone: [employer] Work Phone: 11-30-2014 tuberculin skin test ; purified protein derivative solution, intradermal [facility], [place] 12-15-2013 tuberculin skin test ; purified protein derivative solution, intradermal [facility], [place] 03-02-2008 tetanus toxoid, redu diego diphtheria toxoid, and acellular pertussis vaccine, adsorbed [facility] 02-25-2007 meningococcal polysaccharide (groups A, C, Y and W-135) diphtheria toxoid conjugate vaccine (MCV4P) [place], [place] 02-25-2007 Meningococcal, MCV4, unspecified conjugate formulation(groups A, C, Y and W-135) [facility] 03-12-1999 diphtheria, tetanus toxoids and acellular pertussis vaccine [facility] 03-12-1999 diphtheria, tetanus toxoids and acellular pertussis vaccine, unspecified formulation Koffi Clementeson Work Phone: [employer] Work Phone: 03-12-1999 haemophilus influenz ae type b vaccine, HbOC conjugate [facility] 03-12-1999 measles, mumps and rubella virus vaccine [facility] 03-12-1999 poliovirus vaccine, inactivated [facility], [place] 03-12-1999 trivalent poliovirus vaccine, live, oral [facility] 01-07-1995 diphtheria, tetanus toxoids and acellular pertussis vaccine [facility] 01-07-1995 diphtheria, tetanus toxoids and acellular pertussis vaccine, unspecified formulation Koffi Clementeson Work Phone: [employer] Work Phone: 10-22-1994 haemophilus influenz ae type b vaccine, conjugate unspecified formulation [place] 10-22-1994 haemophilus influenz ae type b vaccine, PRP-OMP conjugate Koffi Uriarte Work Phone: [employer] Work Phone: 10-22-1994 Hib, unspecified [facility], [place] 10-22-1994 measles, mumps and rubella virus vaccine [facility] 10-22-1994 poliovirus vaccine, inactivated [facility] 06-18-1994 hepatitis B vaccine, pediatric or pediatric/adolescent dosage Koffi Uriarte Work Phone: [facility] 06-18-1994 hepatitis B vaccine, unspecified formulation [facility] , [place] 04-16-1994 diphtheria, tetanus toxoids and acellular pertussis vaccine [facility], [place] 04-16-1994 diphtheria, tetanus toxoids and pertussis vaccine [facility] 04-16-1994 haemophilus influenz ae type b vaccine, conjugate unspecified formulation [place] 04-16-1994 haemophilus influenz ae type b vaccine, HbOC conjugate Brendan Glasenapp PA-C Work Phone: [facility] 04-16-1994 haemophilus influenz ae type b vaccine, PRP-OMP conjugate Koffi Uriarte Work Phone: [employer] Work Phone: 04-16-1994 Hib, unspecified [facility], [place] 04-16-1994 poliovirus vaccine, inactivated [facility] 04-16-1994 trivalent poliovirus vaccine, live, oral [facility] 02-12-1994 diphtheria, tetanus toxoids and acellular pertussis vaccine [facility], [place] 02-12-1994 diphtheria, tetanus toxoids and pertussis vaccine [facility] 02-12-1994 haemophilus influenz ae type b vaccine, conjugate unspecified formulation [facility] 02-12-1994 haemophilus influenz ae type b vaccine, HbOC conjugate Brendan Glasenapp PA-C Work Phone: [facility] 02-12-1994 haemophilus influenz ae type b vaccine, PRP-OMP conjugate Koffi Uriarte Work Phone: [employer] Work Phone: 02-12-1994 Hib, unspecified [place] 02-12-1994 poliovirus vaccine, inactivated [facility] 02-12-1994 trivalent poliovirus vaccine, live, oral [place] 01-08-1994 hepatitis B vaccine, pediatric or pediatric/adolescent dosage Koffi Uriarte Work Phone: [facility] 01-08-1994 hepatitis B vaccine, unspecified formulation [place], [place] 1993 diphtheria, tetanus toxoids and acellular pertussis vaccine [place], [place] 1993 diphtheria, tetanus toxoids and pertussis vaccine [facility] 1993 haemophilus influenz ae type b vaccine, conjugate unspecified formulation [place], [place] 1993 haemophilus influenz ae type b vaccine, HbOC conjugate Brendan Blankenship PA-C Work Phone: [facility] 1993 haemophilus influenz ae type b vaccine, PRP-OMP conjugate Koffi Uriarte Work Phone: [employer] Work Phone: 1993 hepatitis B vaccine, pediatric or pediatric/adolescent dosage Koffi Uriarte Work Phone: [facility] 1993 hepatitis B vaccine, unspecified formulation [facility] , [place] 1993 Hib, unspecified [place], [place] 1993 poliovirus vaccine, inactivated [facility] 1993 trivalent poliovirus vaccine, live, oral [place] Payers Date Payer Category Payer Self-pay 2020 Unknown 2020 Unknown MMO MMO [employer] [id number] 2020-Present [phone] [address] [place] [address] O [id number] 2019 Unknown [id number] 1993 Unknown [id number] 1993 Unknown [id number] 1993 Unknown [id number] 1993 Unknown [id number] 1993 Unknown [id number] 1993 Unknown [id number] 1993 Unknown [id number] 1993 Unknown [id number] 1993 Unknown [id number] 1993 Unknown [id number] 1993 Unknown [id number] 1993 Unknown [id number] 1993 Unknown [id number] 1959 Unknown [id number] Unknown [id number] Unknown [id number] Social History Date Type Detail Facility Start: 04-18-2020 End: 04-30-2023 Tobacco smoking status NHIS Never smoker [facility] Start: 04-18-2020 End: 04-30-2023 Tobacco use and exposure Never used [facility] [place] Start: 04-18-2020 End: 09-09-2021 Alcohol intake Current drinker of alcohol (finding) [place] Start: 09-19-2019 History SDOH Financial 5 [place] Start: 09-19-2019 History SDOH Food Worry 1 [place] Start: 09-19-2019 History SDOH Transport Med 2 [place] Start: 04-18-2020 Alcohol Comment occasionally [place], [place] Start: 1993 Sex Assigned At Not on file [place] Start: 04-20-2023 End: 04-30-2023 Exposure to SARS-CoV-2 (event) Not sure [place], [place] Never smoker Never smoker [employer] Work Phone: Tobacco smoking status Never [facility] Sex Assigned At Female [facility] NEGATED: Highlighted row - - [employer] Work Phone: NEGATED: Highlighted rowStart: NINF History of tobacco use Passive smoker [facility] Work Phone: Functional Status Date Assessment Result Facility NEGATED: Highlighted row Functional performance Functional status health issues are not documented [facility] Work Phone: Mental Status Date Assessment Result Facility NEGATED: Highlighted row Cognitive function [Interpretation] Cognitive status health issues are not documented [facility] 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 Patient Active Problem List Diagnosis Abnormal weight [...] 5/5 throughout all four extremities. Coordination Right: Qydybv-wr-wozo normal.Left: Erdhth-ay-pgmp normal. Physical Exam Eyes: Extraocular Movements: Extraocular [...] in 1 year documented in this encounter [facility] Work Phone: 11-25-2022 Note EXAMINATION: US PELV [...] authenticated by: HAYLIE RIVER Date: 2022-11-25 17:20 [facility] 04-16-2022 Note HNO ID: [id number] Author: Brendan Blankenship PA-C Service: ? 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 I, Brendan Blankenship, have reviewed this information as documented for accuracy and performed all elements of history taking, and edited the record as necessary. 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 documented in this encounter [facility] [place] [facility] 03-19-2022 Miscellaneous Notes LMP 02/11, +hpt. Assisted w initial OBV. Advised to take vitamin w folic acid. First trimester precautions provided. handbook sent in . documented in this encounter [facility] [place] [facility] 02-03-2022 Miscellaneous Notes The following approved medication [...] medication MICHELLE: No documented in this encounter [facility] [place] [facility] 09-09-2021 Note HNO ID: [id number] Author: Brendan Blankenship PA-C Service: ? 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 Portions of this record were documented by the Molding Supervisor. I, Brendan Blankenship, have reviewed this information as documented for accuracy and performed all elements of history taking, and edited the record as necessary. 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 [...] Medical Decision Making Level: 3 - Low [facility] 07-04-2021 Note HNO ID: [id number] Author: 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 APRN.LABORER PLUMBING Service: ? Author Type: Nurse Practitioner Type: [...] Ectopic0 Multiple0 Live Births0 Comment: Menarche 10 Energy Conservation Technician History LMP: 06/07/2021 (Exact Date), Having periods Age at Menarche: Age at First : Age at Menopause: Energy Conservation Technician History Comments: Sexual Activity: Yes; Male; [...] external genitalia normal, normal Bartholin's glands, urethra, [place]'s glands, no vulvar lesions, no cervical lesions, [...] type of detergents for washing undergarments, wiping [id number], sleep in loose shorts without underwear, shower immediately after intercourse/exercise, make sure perineum is gently blotted dry before dressing. Avoid scratching, scented pads/tampons/toilet papers, cranberry juice, bubble baths, and intercourse until symptoms are relieved. NO douching. If you shave, use a new razor at least twice monthly. 5) Follow up one year or sooner as needed 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 APRN.JUSTINE [facility] 08-09-2017 History of Past i llness Narrative Problem Noted Date Resolved Date NO SHOW 08/09/2017 08/09/2017 documented as of this encounter (statuses as of 02/03/2022) [facility] [place] [facility]2018 History of Past illness Narrative* Problem Noted Date Resolved Date NO SHOW 08/09/2017 08/09/2017 documented as of this encounter (statuses as of 03/19/2022) [facility] [place] [facility] History of Past illness Narrative* Problem Noted Date Resolved Date NO SHOW 08/09/2017 08/09/2017 documented as of this encounter (statuses as of 03/24/2022) [facility] No data available for this section [facility] Diagnosis Acute vaginitis- Primary Vaginitis and vulvovaginitis, unspecified [facility] Diagnosis Bleeding in early - Primary Unspecified hemorrhage in early , unspecified as to episode of care [facility] Diagnosis Seizure (CMS/HCC)- Primary Other convulsions documented in this encounter [facility] Work Phone: History of Present illness Narrative* The patient states she has been doing well with her blood pressure control since the last visit. She has no comorbid illnesses. She has no significant interval events. * Symptoms: The patient is currently asymptomatic. * Less anxiety lately. Broke up with her boyfriend. * Working in [email or web address] at the [employer]. * BP is much improved on lisinopril. * Saw gyne for discharge. * was told she had BV and chlamydia. * took antibiotics, got better for a few weeks and now she is having discharge again and odor. no pelvic pain. [facility] Work Phone: History of Present illness Narrative* The patient states she has been doing well with her blood pressure control since the last visit. She has no comorbid illnesses. She has no significant interval events. * Symptoms: The patient is currently asymptomatic. * Less anxiety lately. Broke up with her boyfriend. 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 * BP is much improved on lisinopril. * Saw gyne for discharge. * was told she had BV and chlamydia. * took antibiotics, got better for a few weeks and now she is having discharge again and odor. no pelvic pain. [facility] Work Phone: Hospital Discharge instructions No data available for this section [facility] No data available for this section [facility] Summary Purpose Family History No Family [...] FoundDocuments on File Type Date Recorded Patient Plastics Repairer Expl anation ACP-Advance Directive ACP-Power of Court Collections Officer Documents on File Type Date Recorded Patient Plastics Repairer Expl anation ACP-Advance Directive ACP-Power of Court Collections Officer Documents on File Type Date Recorded Patient Plastics Repairer Expl anation Advance Directive(s) 11/30/2015 2:19 PM Reason for Referral Status Reason Specialty Diagnoses / Procedures Referre d By Contact Referred To Contact Open Radiology Diagnoses Nonintractable generalized idiopathic epilepsy without status epilepticus (HCC) Procedures MRI BRAIN W WO CONTRAST Spike Garcia MD [address] [address] Assessments Diagnosis Nonintractable generalized idiopathic epilepsy without status epilepticus (HCC) Diagnosis Seizure (HCC) Other convulsions Discharge Instructions * Attachments The following attachments cannot be sent through Care Everywhere. * Seizure ([facility]) documented in this encounter Additional Source Comments INFORMATION SOURCE (unrecogn ized section and content) DATE CREATED AUTHOR 01/11/2018 [facility] DATE CREATED AUTHOR AUTHOR'S ORGANIZ ATION 04/19/2020 [facility] DATE CREATED AUTHOR AUTHOR'S ORGANIZ ATION 05/11/2020 [facility] DATE CREATED AUTHOR AUTHOR'S ORGANIZ ATION 12/29/2020 [facility] DATE CREATED AUTHOR AUTHOR'S ORGANIZ ATION 04/14/2022 [facility] DATE CREATED AUTHOR AUTHOR'S ORGANIZ ATION 04/20/2022 [facility] DATE CREATED AUTHOR AUTHOR'S ORGANIZ ATION 08/11/2022 [facility] DATE CREATED AUTHOR AUTHOR'S ORGANIZ ATION 11/29/2022 [facility] DATE CREATED AUTHOR AUTHOR'S ORGANIZ ATION 12/27/2022 [facility] DATE CREATED AUTHOR AUTHOR'S ORGANIZ ATION 05/02/2023 [facility] Amb[facility] DATE CREATED AUTHOR AUTHOR'S ORGANIZ ATION 07/30/2023 [facility] EPIC DATE CREATED AUTHOR AUTHOR'S ORGANIZ ATION 08/08/2023 [facility] Reason for Visit (unrecogniz ed section and content) Status Reason Specialty Diagnoses / Procedures Referre d By Contact Referred To Contact Closed EEG Diagnoses Generalized idiopathic epilepsy and epileptic syndromes, not intractable, without status epilepticus Procedures EEG 16+ CHANNEL TELEMTERY 24HR Spike Garcia MD [address] [facility] [address] [place] [address] [facility] Eeg [address] [place] [address] Status Reason Specialty Diagnoses / Procedures Referre d By Contact Referred To Contact Closed Radiology Diagnoses Generalized idiopathic epilepsy and epileptic syndromes, not intractable, without status epilepticus Procedures MRI-BRAIN WO & W CONTRAST Spike Garcia MD [address] [facility] [address] [place] [address] [facility] M[facility] [address] [place] [address] Reason Comments Seizures Seizure like activit y [...] or prosecute any alcohol or drug abuse patient.[facility] [place] [facility] the event this information is protected by the Federal Confidentiality of Alcohol and Drug Abuse Patient Records regulations: The Federal rules restrict any use of the information to criminally investigate or prosecute any alcohol or drug abuse patient.[facility] [place] [facility] the event this information is protected by the Federal Confidentiality of Alcohol and Drug Abuse Patient Records regulations: The Federal rules restrict any use of the information to criminally investigate or prosecute any alcohol or drug abuse patient.[facility] [place] [facility] Care Teams (unrecognized sec tion and content) Mannequin Wig Maker Relationship Specialty Start Date End Date Koffi Uriarte MD PCP - General Family Practice 08/17/16 Mannequin W[employer] Maker Relationship Specialty Start Date End Date Koffi Uriarte MD PCP - General Family Practice 08/17/16 Mannequin Wig Maker Relationship Specialty Start [place] [address] [place] [address] PCP - General 08/14/20 [place] [address] [place] [address] PCP - MMO ACO PCP 02/16/23 FOR [...] BE BASED ON THE PRIMARY CLINICAL RECORDS. [facility]. provides no warranty or guarantee of the accuracy or completeness of information in this document."
--- NOTE | 2023-08-11 12:40 | PC.NURSE ---
Kavya, Blaine, and 7 day old daughter arrive for follow up visit. States the fist night home was awful, but last night was so much better States baby is now well, latching well. Parents continue to offer 1 oz pumped milk after breast. Discussed timeline to stop using supplement for baby. Father states she often acts like she doesn't want it or throws it back up . To try offering every other feed and then every 3rd feed. Kavya's VVS and assessment WNL. Taking only Motrin for discomfort. Discussed alternating with Tylenol as pt does not want to take Percocet. Incision clean and dry. Steri strips intact. No concerned about self care voiced. Ghislaine's VVS and assessment WNL. 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 Discussed with parents, mom states I wondered, because I have a tongue tie and she pinches a lot when latching Discussed possible care and further evaluation per pediatric dentist. Given referral information to review. Parents will make decision on own. Will return 08/18/2023 for weight check and support. Leaves ambulatory with out concerns.
[2023-08-11 12:43] VITALS: BP 123/78; PULSE 69; TEMP 36.8; O2SAT 96
== END 2023-08-11 10:30 | disposition home or self-care (01) ==
PROVIDERS: Visit Provider Obstetrics & Gynecology
DX: Z39.2 Encounter for routine postpartum follow-up (principal)

== ENCOUNTER 2023-11-17 21:18 | Emergency (ER) | payer OTHER, SELFPAY ==
[2023-11-17] VITALS (10 sets, daily range): BP systolic 132–153; BP diastolic 72–90; PULSE 58–72; TEMP 36.7; O2SAT 96–98; BMI 28.2
--- NOTE | 2023-11-17 21:33 | ECG_ITS ---
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
--- NOTE | 2023-11-17 21:33 | ED_ITS ---
HPI - Arrhythmia/Palpitations General Chief Complaint: Arrhythmia/Palpitations Stated Complaint: PALPITATION Time Seen by Provider: 11/17/23 21:27 Source: patient Mode of arrival: walk-in Limitations: no limitations History of Present Illness HPI narrative: 28-year-old female presents for palpitations. Twice an hour for today she has been feeling an episode where she feels like her heart skips a beat. It is mom entary. No dizziness or syncope. She had run out of her labetalol and resumed it 2 days ago. She is on it for hypertension. No fever cough or vomiting. Related Data Home Medications ?Medication ?Instructions ?Recorded ?Confirmed labetalol 200 mg tablet 200 mg PO BID 07/21/23 11/17/23 lamotrigine 100 mg tablet 100 mg PO Q12H 07/21/23 11/17/23 Previous Rx's ?Medication ?Instructions ?Recorded ibuprofen 800 mg tablet 800 mg PO Q8H PRN pain 14 days #40 08/06/23 tabs Allergies Allergy/AdvReac Type Severity Reaction Status Date / Time No Known Drug Allergies Allergy Verified 11/17/23 21:24 Review of Systems ROS Narrative A ten point review of systems is negative except as noted above. Exam Narrative Exam Narrative: Nurses note and vital signs reviewed and patient is not hypoxic. General: The patient appears well and in no apparent distress. Patient is resting comfortably on cart. Skin: Warm, dry, no pallor noted. There is no rash noted. Head: Normocephalic, atraumatic Eye: Normal conjunctiva, no drainage Ears, Nose, Mouth, and Throat: oral mucosa is moist. Nares patent. Cardiovascular: Regular Rate and Rhythm Respiratory: Patient is in no distress, no accessory muscle use, lungs are clear to auscultation, no wheezing, rales or rhonchi Back: non-tender GI: Soft and nontender Musculoskeletal: The patient has no evidence of calf tenderness, no pitting edema, symmetrical pulses noted bilaterally Neurological: A&O, normal speech Psychiatric: Cooperative Constitutional Vital Signs, click to edit/add: Last Vital Signs Temp 98.1 F 11/17/23 21:21 Pulse 72 11/17/23 21:21 Resp 18 11/17/23 21:21 BP 153/90 H 11/17/23 21:21 Pulse Ox 98 11/17/23 21:21 O2 Del Method Room Air 11/17/23 21:21 Course Vital Signs Vital signs: Vital Signs Temperature 98.1 F 11/17/23 21:21 Pulse Rate 72 11/17/23 21:21 Respiratory Rate 18 11/17/23 21:21 Blood Pressure 153/90 H 11/17/23 21:21 Pulse Oximetry 98 11/17/23 21:21 Oxygen Delivery Method Room Air 11/17/23 21:21 Temperature 98.1 F 11/17/23 21:21 Pulse Rate 72 11/17/23 21:21 Respiratory Rate 18 11/17/23 21:21 Blood Pressure 153/90 H 11/17/23 21:21 Pulse Oximetry 98 11/17/23 21:21 Oxygen Delivery Method Room Air 11/17/23 21:21 MDM - Arrhythmia/Palpitations MDM Narrative Medical decision making narrative: Electrolytes are essentially normal. EKG shows sinus rhythm. On the monitor she had a few PVCs. She will be discharged home and will follow-up with PCP if symptoms persist. Treatment diagnosis and follow-up were discussed with the patient. Differential Diagnosis Differential diagnosis: Likely palpitations, anxiety, artial fibrillation and ventricular premature beats Lab Data Attestation: I reviewed the patient's lab results. Labs: Lab Results 11/17/23 Range/Units 21:41 WBC 7.9 (4.0-11.0) 10^3/uL RBC 3.96 L (4.20-5.40) 10^6/uL Hgb 11.4 L (12.0-16.0) g/dL Hct 35.2 L (36.0-48.0) % MCV 88.9 (81.0-99.0) fL MCH 28.8 (26.7-34.0) pg MCHC 32.4 (29.9-35.2) g/dL RDW 13.3 (11.0-15.0) % Plt Count 248 (150-450) 10^3/uL MPV 9.3 L (9.5-13.5) fL Neut % (Auto) 57.8 (43.0-75.0) % Lymph % (Auto) 35.0 (20.5-60.0) % [place] % (Auto) 6.7 (1.7-12.0) % Eos % (Auto) 0.0 L (0.9-7.0) % Baso % (Auto) 0.4 (0.2-2.0) % Neut # (Auto) 4.6 (1.4-6.5) 10^3/uL Lymph # (Auto) 2.8 (1.2-3.8) 10^3/uL [place] # (Auto) 0.5 (0.3-0.8) 10^3/uL Eos # (Auto) 0.0 (0.0-0.7) 10^3/uL Baso # (Auto) 0.0 (0.0-0.1) 10^3/uL Abs Immat Gran (auto) 0.01 (0.00-0.03) 10^3/uL Imm/Tot Granulo (auto) 0.1 (0.0-0.5) % Sodium 140 (136-145) mmol/L Potassium 4.2 (3.5-5.1) mmol/L Chloride 105 (98-107) mmol/L Carbon Dioxide 26.8 (21.0-32.0) mmol/L Anion Gap 12.4 BUN 15.0 (7.0-18.0) mg/dL Creatinine 0.79 (0.55-1.02) mg/dL Est GFR ( Amer) >60 (>=60) Est GFR (Non-Af Amer) >60 (>=60) BUN/Creatinine Ratio 19.0 Glucose 97 (74-106) mg/dL Calcium 9.4 (8.5-10.1) mg/dL Magnesium 2.0 (1.8-2.4) mg/dL ECG Data Attestation: I personally reviewed and interpreted this ECG as follows: (EKG on my interpretation shows normal sinus rhythm with a rate of 62 and no dysrhythmia or PVCs) Discharge Plan Discharge Stand Alone Forms: Portal Instructions Chief Complaint: Arrhythmia/Palpitations Clinical Impression: Ventricular premature beats Patient Disposition: Home, Self-Care Time of Disposition Decision: 22:19 Condition: Good Mode of Transportation: Private Vehicle Prescriptions / Home Meds: No Action lamotrigine 100 mg tablet 100 mg PO Q12H labetalol 200 mg tablet 200 mg PO BID ibuprofen 800 mg tablet 800 mg PO Q8H PRN (Reason: pain) 14 Days Qty: 40 0RF Print Language: Scottish Instructions: Premature Ventricular Contractions (ED) Additional Instructions: Follow-up with your PCP if symptom persists. Referrals: Norma Houser YARN REWINDER [Primary Care Provider] - 1 week
--- OUTSIDE RECORDS SUMMARY | 2023-11-17 21:33 | XMS_ITS | CCD ---
Author Organization [facility] Care Team Providers Care Table Keeper Name Role Phone Uriarte, Koffi A Unavailable Unavailabl e Uriarte, Koffi A Unavailable Unavailabl e Uriarte, Koffi A Unavailable Unavailabl e ZAC ANDERSON Primary Care Unavailable TU CURRAN Attending Unavailab le Uriarte, Koffi Unavailable Unavailable Doe Andrade Unavailable Unavailable Theo Smith Unavailable Unavailab le Ruiarte, Koffi A Unavailable Unavailabl e Uriarte, Koffi Primary Care Provider SPIKE GARCIA Referring Unavailable URIARTE, KOFFI Primary Care Unavailable SPIKE GARCIA Referring Unavailable URIARTE, KOFFI Primary Care Unavailable Theo Smith Unavailable Unavailable Opaskar, Nedra Unavailable Unavailable Uriarte, Koffi A Unavailable Unavailabl Theo Bryan Unavailable Unavailable Zac Anderson Primary Care Provider Uriarte, Koffi A Unavailable Unavailable Unavailable Unavailable Unavailable Unavailable Unavailable Koffi Uriarte MD Primary Care Provider Unavailable Unavailable Koffi Uriarte MD Primary Care Provider Milagro Son Primary Care Physician Unavail able Dane Hassan Attending Unavailable Dane Hassan Admitting Unavailable BRENDAN BLANKENSHIP Attending Unavailable URIARTE, KOFFI A Primary Care Unavailabl e GEORGIA DWYER Attending Unavailable URIARTE, KOFFI A Primary Care Unavailabl e KAVITA SWEET Referring Unavailable URIARTE, KOFFI A Primary Care Unavailabl e BRENDAN BLANKENSHIP Attending Unavailable URIARTE, KOFFI A Primary Care Unavailabl e Unavailable Unavailable APRIL ., DR GONZALEZ Admitting Unavailable APRIL ., DR GONZALEZ Attending Unavailable APRIL ., DR GONZALEZ Consulting Unavailable APRIL ., DR GONZALEZ Admitting Unavailable APRIL ., DR GONZALEZ Attending Unavailable [place], DR HAYLIE Garcia Consulting Unavailable APRIL ., DR GONZALEZ Consulting Unavailable Chapito, Dr. Koffi Rosas Primary Care Dario Uriarte, Dr. Koffi Rosas Attending Dario Uriarte, Dr. Koffi Rosas Referring Koffi Oquendo MD Primary Care Provider Koffi Uriarte MD Unavailable [phone] NEDRA CALDERON Attending Unavailable KOFFI URIARTE Primary Care Unavailabl e CLARK, SHIMA Attending Unavailable CLARK, SHIMA Attending Unavailable APRIL, WILLIS Attending Unavailable CLARK, SHIMA Attending Unavailable CLARK, SHIMA Attending Unavailable CLARK, SHIMA Attending Unavailable April, Willis Attending Unavailable AprilWillis Admitting Unavailable Allergies Allergy Classification Reported Allergen(s) Allergy Type Date of Onset Reaction(s) Facility (1 source) No Known Medication Allergies; Translations: [No Known Medication Allergies] Propensity to adverse reactions (disorder) [facility] Repository Medications Current Medications Medication Drug [...] 1 tablet by mouth daily. 0 Active labetalol hydrochloride 200 mg oral tablet (1 source) beta-Adrenergic Francoise Start: 11-09-2023 take 200 mg by mouth twice daily Labetalol Active 200 MG PO Twice daily November 09, 2023 12:00am lamoTRIgine 100 mg oral tablet (20 sources) Mood Stabilizer, Anti-epileptic Agent Start: 11-09-2023 take 100 mg by mouth once daily Lamotrigine Active 100 MG PO Daily November 09, 2023 12:00am Start: 08-14-2020 take 1 tablet by jolie th twice daily lamoTRIgine 100 MG Oral Tablet TAKE 1 TABLET BY MOUTH TWICE DAILY. Quantity: 180 Refills: 3 Ordered: 24-Dec-2021 Nedra Calderon MD Start : 14-Aug-2020 Active lamoTRIgine (NGUYEN ICTAL) 25 mg tablet levothyroxine sodium 0.025 mg oral tablet (1 [...] Status: Ordered ondansetron 4 mg oral tablet (2 sources) Serotonin-3 Receptor Antagonist Start: 11-09-19 take 4 mg by mouth every eight hours Ondansetron Hcl Active 4 MG PO Every 8 hours November 09, 2023 12:00am Start: 02-10-2023 take 2 tablets by mo ut twice daily as needed for nausea ondansetron (Zofran) 4 mg tablet Take 2 tablets (8 mg) by mouth 2 times a day as needed for nausea. 0 02/10/2023 Active sodium chloride flush 0.9 % injection 3 mL (1 source) Start: 04-18-2020 sodium chlorid e flush 0.9 % injection 3 mL Completed/Discontinued [...] End: 05-09-2020 gadoteridol (PROHANCE) injection 15 mL melatonin 10 mg oral tablet (8 sources) [...] bruce, Vaginal, BID, 70 gram, Refill(s) 0, [facility]0220 Start Date: 06/09/19 Stop Date: 06/14/19 [...] 10-02-2022 10-02-2022 Episodic Unclassified (1 source) R07.9 90774/8 Onset: 05-04-2017 Unclassified (5 sources) Patient encounter status; Translations: [Encounter for audiology evaluation] NEGATED: Highlighted row has not occurred!Residual codes; unclassified (17 sources) Disease Episodic Results Test Name Value Interpretation Reference Range Facility [facility] 08-04-2023 L Specimen: [id number] Received: 08/04/23 Status: LAZARA Lyn Num: [id number] Spec Type: Surgical Subm Dr: Willis Chen Tissues: A Placenta - 3rd Trimester (Greater than 28 weeks) (PLACENTA) Procedures: HE/3, Gross/Micro L5 Age/ Patient Sex Location Account Attending Physician CantuPrincess hughes 27/F LABELL [id number] Willis Chen SPEC NUM: [id number] RECD: 08/04/23 STATUS: LAZARA LYN NUM: [id number] JOSE: 08/04/[address]: Willis Chen ENTERED: 08/04/23 [facility] DR: Giselle,Lab SPEC TYPE: Surgical DEPT: ROSS [...] parenchyma up to 3.1 cm in thickness. Mold Breaker sections are submitted in 3 cassettes as follows: A1 - membranes, umbilical cord, and decidua basalis A2 - Central placenta full-thickness A3 - Peripheral placenta, full-thickness ---- Specimen: [id number] Received: 08/04/23 Status: LAZARA Lyn Num: [id number] Spec Type: Surgical Subm Dr: Willis Chen Tissues: A Placenta - 3rd Trimester (Greater than 28 weeks) (PLACENTA) Procedures: HE/Tru, Gross/Micro L5 ---- Patient: Princess Cantu [id number] (Continued) ---- Specimen: [id number] Received: 08/04/23 (Continued) Signed (signature on file) Juliet Sykes MD 08/08/232229 ---- Specimen: [id number] Received: 08/04/23 Status: LAZARA Lyn Num: [id number] Spec Type: Surgical Subm Dr: Willis Chen Tissues: A Placenta - 3rd Trimester (Greater than 28 weeks) (PLACENTA) Procedures: DELMY/3, Gross/Micro L5 ---- Patient: Princess Cantu [id number] (Continued) ---- Specimen: [id number] Received: 08/04/23 (Continued) CPT Codes 79063 ---- ---- Specimen: [id number] Received: 08/04/23 Status: LAZARA Lyn Num: [id number] Spec Type: Surgical Subm Dr: Willis Chen Tissues: A Placenta - 3rd Trimester (Greater than 28 weeks) (PLACENTA) Procedures: DELMYJesica/Danitza L5 ---- Patient: Princess Cantu [id number] (Continued) ---- Signed (signature on file) Juliet Sykes MD 08/08/23 2230 [facility] DHEA SERUMon 11-20-2022 Dehydroepiandrosterone (DHEA) 656 ng/dL Normal 31-701 [facility] Comment on above: Performed By: #### D LAMAR. #### [facility] [address] [place] [address] Dr. Vish Brown ANTI-MULLERIAN HORMONEon Anti-Mullerian Hormone (AMH) 4.47 ng/mL Normal [facility] Comment on above: Result Comment: For assays employing antibodies, the possibility exists for interference by heterophile antibodies in the samples.1 1.Favio Campos Interferences in Immunoassays - still a threat. Clin. Chem. 2000; 46: 7855-0988. This test was developed and its performance characteristics determined by [employer]. It has not been cleared or approved by the Food and Drug Administration. Reference Range: Females 26 - 30y: 1.03 - 11.10 Median 4.20 AMH concentrations of >= 1.06 ng/mL is correlated with a better response to ovarian stimulation, produced more retrievable oocytes and higher odds of live according to Gabi et al. Fertility and Sterility. 2010: 94:5504-4353. The current AMH test method correlates with [...] AMH-secreting ovarian tumor. Performed By: #### L [facility] #### [facility] [address] [place] [address] Dr. Vish Brown DHEA-SULFATEon 11-17-2022 DHEA-Sulfate 449.0 ug/dL Critically high 84.8-378.0 [facility] Comment on above: Performed By: #### L BCL #### [facility] [address] [place] [address] Dr. Vish Brown ESTRADIOLon 11-17-2022 Estradiol 34.3 pg/mL Normal [facility] Comment on above: Result Comment: Adul t Female: Follicular phase 12.5 - 166.0 Ovulation phase 85.8 - 498.0 Luteal phase 43.8 - 211.0 Postmenopausal <6.0 - 54.7 1st trimester 215.0 - >4300.0 Ele ECLIA methodology Performed By: #### E STRACRISTIAN #### [facility] [address] [place] [address] Dr. Vish Brown FSHon 11-17-2022 FSH 6.1 mIU/mL Normal [facility] Comment on above: Result Comment: Adul t Female: Follicular phase 3.5 - 12.5 Ovulation phase 4.7 - 21.5 Luteal phase 1.7 - 7.7 Postmenopausal 25.8 - 134.8 Performed By: #### L [facility] #### [facility] [address] [place] [address] Dr. Vish Brown LUTEINIZING HORMONE (LH)on 0 11-17-2022 LH 4.5 mIU/mL Normal [facility] Comment on above: Result Comment: Adul t Female: Follicular phase 2.4 - 12.6 Ovulation phase 14.0 - 95.6 Luteal phase 1.0 - 11.4 Postmenopausal 7.7 - 58.5 Performed By: #### L BRUNA #### [facility] [address] [place] [address] Dr. Vish Brown PROGESTERONEon 11-17-2022 Progesterone 0.8 ng/mL Normal [facility] Comment on above: Result Comment: Foll icular phase 0.1 - 0.9 Luteal phase 1.8 - 23.9 Ovulation phase 0.1 - 12.0 First trimester 11.0 - 44.3 Second trimester 25.4 - 83.3 Third trimester 58.7 - 214.0 Postmenopausal 0.0 - 0.1 Performed By: #### P TASNEEM #### [facility] [address] [place] [address] Dr. Vish Brown CBC AUTO DIFFon 11-16-2022 BASO # 0.0 103/ul Normal 0.0-0.1 [facility] Comment on above: Performed By: #### L BRUNA #### [facility] [address] [place] [address] Dr. Vish Brown Basophils/100 WBC (Bld) 0.5 % Normal 0.2-2.0 [facility] Comment on above: Performed By: #### L BRUNA #### [facility] [address] [place] [address] Dr. Vish Brown EO # 0.3 103/ul Normal 0.0-0.7 [facility] Comment on above: Performed By: #### L BRUNAH #### [facility] [address] [place] [address] Dr. Vish Brown Eosinophils/100 WBC (Bld) 4.0 % Normal 0.9-7.0 [facility] Comment on above: Performed By: #### L BRUNAH #### [facility] [address] [place] [address] Dr. Vish Brown Erythrocyte distribution width (RBC) [Ratio] 12.0 % Normal 11.0-15.0 [facility] Comment on above: Performed By: #### L BRUNAH #### [facility] [address] [place] [address] Dr. Vish Brown Hematocrit (Bld) [Volume fraction] 39.1 % Normal 36.0-48.0 [facility] Comment on above: Performed By: #### L BCLH #### [facility] [address] [place] [address] Dr. Vish Brown Hemoglobin (Bld) [Mass/Vol] 13.0 g/dL Normal 12.0-16.0 [facility] Comment on above: Performed By: #### L BCLH #### [facility] [address] [address] [address] Vish Brown IG # 0.02 10e3/ul Normal 0.00-0.03 [facility] Comment on above: Performed By: #### L BCLH #### [facility] [address] [place] [address] Dr. Vish Brown IG % 0.3 % Normal 0.0-0.5 [facility] Comment on above: Performed By: #### L BCLH #### [facility] [address] [place] [address] Dr. Vish Brown LYMPH # 2.5 103/ul Normal 1.2-3.8 [facility] Comment on above: Performed By: #### L BCLH #### [facility] [address] [place] [address] Dr. Vish Brown Lymphocytes/100 WBC (Bld) 32.4 % Normal 20.5-60.0 [facility] Comment on above: Performed By: #### L BCLH #### [facility] [address] [place] [address] Dr. Vish Brown MANUAL DIFF REQ NO Normal [facility] Comment on above: Performed By: #### L BCLH #### [facility] [address] [place] [address] Dr. Vish Brown MCH (RBC) [Entitic mass] 29.9 pg Normal 26.7-34.0 [facility] Comment on above: Performed By: #### L BCLH #### [facility] [address] [place] [address] Dr. Vish Brown MCHC (RBC) [Mass/Vol] 33.2 g/dL Normal 29.9-35.2 [facility] Comment on above: Performed By: #### L BCLH #### [facility] [address] [place] [address] Dr. Vish Brown MCV (RBC) [Entitic vol] 89.9 fL Normal 81.0-99.0 [facility] Comment on above: Performed By: #### L BCLH #### [facility] [address] [place] [address] Dr. Vish Brown MONO # 0.6 103/ul Normal 0.3-0.8 [facility] Comment on above: Performed By: #### L BCLH #### [facility] [address] [place] [address] Dr. Vish Brown Monocytes/100 WBC (Bld) 7.4 % Normal 1.7-12.0 [facility] Comment on above: Performed By: #### L BCLH #### [facility] [address] [place] [address] Dr. Vish Brown NEUT # 4.3 103/ul Normal 1.4-6.5 [facility] Comment on above: Performed By: #### L BCLH #### [facility] [address] [place] [address] Dr. Vish Brown Neutrophils/100 WBC (Bld) 55.4 % Normal 43.0-75.0 [facility] Comment on above: Performed By: #### L BCLH #### [facility] [address] [place] [address] Dr. Vish Brown Platelet mean volume (Bld) [Entitic vol] 9.0 fL Critically low 9.5-13.5 [facility] Comment on above: Performed By: #### L BCLH #### [facility] [address] [place] [address] Dr. Vish Brown PLT 277 103/ul Normal 150-450 [facility] Comment on above: Performed By: #### L BCLH #### [facility] [address] [place] [address] Dr. Vish Brown RBC 4.35 106/ul Normal 4.20-5.40 [facility] Comment on above: Performed By: #### L BCLH #### [facility] [address] [place] [address] Dr. Vish Brown WBC 7.7 103/ul Normal 4.0-11.0 [facility] Comment on above: Performed By: #### L BCLH #### [facility] [address] [place] [address] Dr. Vish Brown FREE T4on 11-16-2022 Free T4 [Mass/Vol] 1.08 ng/dL Normal 0.76-1.46 [facility] Comment on above: Performed By: #### F T4 #### [facility] [address] [place] [address] Dr. Vish Brown GLYCOHEMOGLOBIN A1Con 2022 ADA RECOMMENDATION SEE BELOW Normal [facility] Comment on above: Result Comment: ADA RECOMMENDED LIMIT 4.0 - 6.0 ADA THERAPEUTIC TARGET < 7.0 ACTION SUGGESTED > 7.0 Performed By: #### A 1C #### [facility] [address] [place] [address] Dr. Vish Brown Glucose [Mass/Vol] 94 mg/dL Normal [facility] Comment on above: Performed By: #### A 1C #### [facility] [address] [place] [address] Dr. Vish Brown HbA1c (Bld) [Mass fraction] 4.9 % Normal 4.5-6.2 [facility] Comment on above: Performed By: #### A 1C #### [facility] [address] [place] [address] Dr. Vish Brown PREG QUANT HCGon 11-16-2022 HCG QUANT <1 Normal [facility] Comment on above: Performed By: #### P REGQNT, TSH #### [facility] [address] [place] [address] Dr. Vish Brown HCG RANGE SEE BELOW Normal [facility] Comment on above: Result Comment: 5-50 0.2-1 WEEK 50-500 1-2 WEEKS 100-5,000 2-3 WEEKS 500-10,000 3-4 WEEKS 1,000-50,000 4-5 WEEKS 10,000-100,000 5-6 WEEKS 15,000-200,000 6-8 WEEKS 10,000-100,000 2-3 MONTHS Performed By: #### P REGQNT, TSH #### [facility] [address] [place], [place] [address] Dr. Vish Brown TSHon 11-16-2022 TSH 2.030 uIU/mL Normal 0.358-3.740 [facility] Comment on above: Performed By: #### P REGQNT, TSH #### [facility] [address] [place], [place] [address] Dr. Vish Brown 19-49 Yearson 07-31-2022 19-49 [...] Occasional alcohol (more content not included)... Normal [employer] Tobacco Screening.on 023 Adult depression screening assessment No [employer] Phone: Fall risk assessment a) No falls within the last year [employer] Phone: Tobacco use status CPHS b) No M P[employer] Phone: B-HCG SerPl-aCncon 2 HCG.beta subunit Qn m[IU]/mL Normal <5.0 [facility] Comment on above: Order Comment: Speci men Type: BLOOD SPECIMENOrdering Facility: [facility] Address: [address] [place] [address] Result Comment: Soledad kyle Performed By: #### G CCT #### [place] [address] BACTERIAL VAGINOSIS AMPLIFIC ATIONon 04-16-2022 Lactobacillus crispatus+gasseri+jense james + Gardnerella vaginalis + Atopobium vaginae rRNA HUMERA+probe Ql (Vag fld) Negative Normal Negative for bacterial vaginosis [facility] Comment on above: Order Comment: Speci men Type: SWAB Ordering Facility: [facility] Address: [address] [place] [address] Performed By: #### C VTV, BVAMP #### [facility] CLIA [id number] [address] [place] [address] [place] C. trachomatis+N. gonorrhoea e DNA HUMERA+probe Ql (Unsp spec)on 04-16-2022 C. trachomatis DNA HUMERA+probe Ql (Unsp spec) Negative Normal Negative for Chlamydia trachomatis by amplificaton [facility] Comment on above: Order Comment: Speci men Type: SWAB Ordering Facility: [facility] Address: [address] [place] [address] Performed By: #### C VTV, BVAMP #### [facility] CLIA [id number] [address] [place] [address] [place] N. gonorrhoeae DNA HUMERA+probe Ql (Unsp spec) Negative Normal Negative for Neisseria gonorrhoeae by amplification [facility] Comment on above: Order Comment: Speci men Type: SWAB Ordering Facility: [facility] Address: [address] [place] [address] Performed By: #### C VTV, BVAMP #### [facility] CLIA [id number] [address] [place] [address] [place] MITCH / TRICHOMONAS AMPLIF ICATIONon 04-16-2022 MITCH / TRICHOMONAS AMPLIFICATION [employer] RNA: Negative for Mitch species MITCH GLABRATA RNA: Negative for Mitch glabrata TRICH VAG AMPLIFICATION RNA: Negative for Trichomonas vaginalis by amplification Normal [facility] Comment on above: Performed By: #### C VTV, BVAMP #### [facility] CLIA [id number] [address] [place] [address] [place] [facility] CNCOon 04-16-2022 CNCO Letter Text Letter Text Normal [facility] CNOVon 04-16-2022 CNOV Office Visit (OBGA ) PRINCESS CANTU ([id number]) 1995 F Date Time Provider Department 04/16/22 8:00 AM BRENDAN BLANKENSHIP [facility] During your visit today, we recorded [...] History Social History Narrative Single No pregnancies 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 I, Brendan Blankenship, have reviewed this information as documented for accuracy and performed all elements of history taking, and edited the record as necessary. ROS: SEE HPI PE: GENERAL: well-appearing, in no acute distress LUNGS: Normal inspiratory effort DOUGH MIXER: Normal external genitalia, no vaginal bleeding, small [...] Order(s):MITCH / TRICHOMONAS AMPLIFICATION [SQCVTV] Order #: [id number]. #:[id number] BACTERIAL VAGINOSIS AMPLIFICATION [SQBVAMP] Order #: [id number]. #:[id number] GC/CHLAMYDIA DNA DET [SQGCCAMP] Order #: [id number]. #:[id number] SYPHILIS TOTAL W/REFLEX [SQSYPHTX] Order #: [id number] FUTURE HIV 1 2 COMBO(AG/AB),WITH REFLEX TO DIFFERENTIATION [SQHIV12] Order #: [id number] FUTURE HEP C AB IA W/CONF SCRN [VFHCCY4Q] Order #: [id number] FUTURE HEP B SURF AG SCRN [SQHBSAG] Order #: [id number] FUTURE Prescriptions as of 04/16/2022 - lamoTRIgine [...] Status:Closed by BRENDAN BLANKENSHIP on 04/16/22 Normal [facility] HBV surface Ab IA Ql (S)on 0 04-16-2022 HBV surface Ag Ql (S) Negative Normal Negative [facility] Comment on above: Order Comment: Speci men Type: BLOOD SPECIMENOrdering Facility: [facility] Address: [address] [place] [id number] Performed By: #### G CCT #### [address] [address] HCV Ab Ser Qlon 04-16-2022 HCV Ab Ql (S) Negative Normal Negative [facility] Comment on above: Order Comment: Speci men Type: BLOOD SPECIMEN [facility]: [facility] Address: [address] [place] [address] Result Comment: The result suggests no evidence of active infection with Hepatitis C virus. Should recent infection be suspected, repeat testing may be considered 4-6 weeks after this draw. Performed By: #### 1 6128-1 #### [facility] CLIA [id number] [address] [place] [address] [id number] [place] [address] OF [facility] HIV 1+2 Ab IA Qlon 2 HIV 1 and 2 Ab IA.rapid Nom Normal [facility] Comment on above: Order Comment: Speci men Type: BLOOD SPECIMENOrdering Facility: [facility] Address: [address] [place] [address] Result Comment: Test not indicated. Performed By: #### G CCT #### [place] [phone] HIV 1+2 Ab+HIV1 p24 Ag IA Ql Non-Reactive Normal Nonreactive [facility] Comment on above: Order Comment: Speci men Type: BLOOD SPECIMENOrdering Facility: [facility] Address: [address] [place] [address] Performed By: #### G CCT #### [place] [phone] HIVINT Normal [facility] Comment on above: Order Comment: Speci men Type: BLOOD SPECIMENOrdering Facility: [facility] Address: [address] [place] [address] Result Comment: No e vidence of HIV-1 or HIV-2 infection. Should recent infection be suspected, repeat testing may be considered 2-3 weeks after this draw. [place] Rev. Code 3701.243(E): This information has been [...] diagnoses. Performed By: #### G CCT #### [place] [phone] Reagin and Treponema pallidu m IgG and IgM [Interp]on 04-16-2022 SYPHILIS INTERPRETATION Cannot exclude r ecent Treponemal infection if specimen collected within 7-10 days after appearance of suspect lesions or 2-3 weeks after an exposure. Clinical correlation is required. Normal [facility] Comment on above: Order Comment: Speci men Type: BLOOD SPECIMENOrdering Facility: [facility] Address: [address] [place] [address] Performed By: #### G CCT #### [place] [phone] T. pallidum IgG+IgM IA Ql (S) Non-Reactive Normal Nonreactive [facility] Comment on above: Order Comment: Speci men Type: BLOOD SPECIMENOrdering Facility: [facility] Address: [address] [place] [address] Performed By: #### G CCT #### [place] [phone] Coding Summary.on 03-27-2022 Coding Summary. CD:[id number] Gh 0bWw+PGhlYWQ+YS4WVTSdS 56vaVRplM1DJ7vHIR9ELRM RRHFPOO3YDK8czLO2NXwtW 2VybiAv WeakbTQmHB81PMu4UFN1dN rxSDhlbG1iyZDwC6v8EjCc BP70sT91BDgfGJRkGyU7Nt ZpbjsgbWFy F6efFlIhiMQuPqb+PHRhYm xlIHdpZHRoPScxMDAlJyBz eHlePB1kBi7dOZUnFFRcoQ xhcHNlOiBj w9cfKTNpGKaaXA5adVncU0 JgiUG5POKkv9i5Wv52cXU+ CDGeALN5lYaiZBezm771Sj Bpe0dqJRN5 pKEuSMpoLOV0Y59gf4V2SU SiBFZuIQN5oQK0gU9zcTfu apppL5LioMClKbB4YXE0iS SehZ4xvGho xkcldA4bBvz+M40CQY2EYP RNHG2AIqs3Q8QaRccjwQQ+ TV02XNWyBV11zEPbmEKyv4 klaMp4KpLf [id number] OpX74poSTll6H3FMNibNlb gEAhVgZdfZJ2mU8vWVndgg bcm7fywwdi Msrkh5gnpd12uW59T89xCH gySDKpERM7AWDrHZIlhHov tn4vkE4pPq0+CFaqn3mpu0 rbuWk8HhPu SCVxueBsjWmmEMZ1t2JjTz 13T2MdnWwtg5PiSfb0yp25 oKXfu8S0uDZ4KWodBVSylI 2wYXaqBoL0 RCTrArEjbN05yMDtEScxRn 0fmSlxwIveBZ5dYNZcfgdh SIOujF4wKXSskQOkiGwvOZ 4wNTBpbjtm r974IdAvDFW4GSCbtLFhX6 CpqM9pTlXrUJBvGFDdI9Qt tJQlKXafS940GObcVgJ4GE WejsReL4Rn VFHarKphGuJ4a8D3Kw4Zh3 ZwirzjNAV1DJynMRL1BcA5 InEdOiE9Z2LcDds4BYWqrV zaRT3zH0Ly WYBryhexmqsxxNF1HKXbRK MjuS17gQStJNzfBv1op1M8 d090RFZzSQVyfA32Ak5xaD ogMTBwdCBU qI3raoubi7xcckgtSnUmHE QzTWu6EYq5IBUvqDhdMaDi UBL1GrU4YYH8rMVouA2lmW jxhacwbH2f Oyc+T11eyU5qADW8DTC4oq lnVUFcdbXvVJ18YY66K8Lf PjwvdGFibGU+PGRpdiBzdH liLT6kQtLq n2mxx0FbVEfvJ5EcADAmZX ntLhm6HZBhRDL9sFP6rH7x QERaLKgwk6E7dNZ5B4Ggju Gzqh2gg5wm GJUdCGipM43duZPic7L6GV XhtOV1IUGioVcfMiSkxX85 Oyc+ZXAadZxxh7HdUdlhp6 otz4ecnSb7 MnOtTMWrngKxpBicJTC3s9 GzGz10C19nETjbACOkXFUd YJQgCNOzyMhcaq3vvC5xQw 8+PGNvbCB3 rAO3zI1nRZYqNuH7ZQbyU5 68LmVknGJgHapil1xin2wn uNo7RmXhOOXszbBcqCgkNB T3k5IwUl52 S32bQPayVFSlXQMjBUXbPS SauRhrop1oeH7mKf4+PC9j v4uuiy47qF89oGH+PHRkIH T4aMobFNof FQNdcG2xGHgiDqB6QBCbMl FmgT48vXPqGTefFw2ruBnf rRlgCV4zHDVwecbkj284Qq Suo6keEGOb lTCdJGuaYWV8I90ou8F6YN YmCHKnWSG2cGY4aN0nbBlx bjogbGVmdDsgdmVydGljYW asVZfeG692 IHRvcDsnPlBhdGllbnQgTm YmIQh8W8VgDjd7XDWyrLlo ER9avMPrMZlxXh4gsTzelB iqXZ4vRJGd pyyfn440SqKae3ptUPNzmV PrXXcsUDV8C02ty4X4DHKr EBVbBQW1yXJ0qA7vcKpphr ogbGVmdDsg uhTkbObiAApaXSwjB942TK RvcDsnPkJpcnRoIERhdGU6 VN77MJ14mPNao5J8uGN8M0 BhZGRpbmct tcgteRI4EZAiUBSpqH62Cr 7jbLaxEj7vOLBqFKQ4VXKf bKLtE5OvrP6rWrIiJNNiSU ZnO5WfwBHc ODbuW801DXoiJhF9TAWmox YzS8PiLRRnjMvjZhM1y6U1 Lv3XM6P1FQ95XJ19bBUxz7 Y3nRV8L7Jn AQDwjinoskmtvZK1YCGmLN UkzD22Co8zjHtwXz7sOJZq HAJ6TOLrpBDuN7EsvT5pHs AjMDAwMDAw Z7BlfRGmIWknN597WEazUn R4CESihyFzR4PeEFRqdJfx GfP8b6G8Ns4NDWc2XA13GA 22hLBnv1V6 rBE8X4SyZPUopqjrzyaziG M0HIQdMPWbrP57Tw9oiVyo Zp1oKEZwUTM3CEXriFLhJ4 LxhQ3oQcQf KIWtDKPnZ8RphJZeHHjyV8 06WRmmOxH2CJQlhfUbV2Ru WRYroNgvExF9c9R3Uh6BJD AfTX86RNK9 sDK3QL97QJ53Q3NwMpbrmF FibGU+PHRhYmxlIHdpZHRo NUqoQYZbByYefZbpTC2cTq 9yZGVyLWNv bFwjeSLqHfDeq2esVOEtKR plOQ6ztCawD4MeqBF7FFRk n9r0Ac77R86jD5IfwXV+PG TtwDZ0mKZ4 oZ2xUmOoTxR4ULdoV033Je LeuZEoPnnmp2wqu6pobGe1 BmK9OQVldwVekCooSKQ5l2 TsCs01Z96p IHdpZHRoPSIxNSUiIHZhbG jjzv4gcT7iGj0+PGNvbCB3 zPX5hW2kRtBqItR3UGssO8 49InRvcCIv Rmqdi0uqn4pruXa7CbMuKC IghlBqqKvfLCA2u0VvCg55 C5CrnLsbx4LkQgw9yw11lK Bpv6K4oIS7 S7SkHPUncgmhwHHznTatDC 3fRRWvqwcjNUVuyH5jBWBl Y0f9GdRdGqJ9SEaaF9Iqzx A4NALkvLTg WBtpKRU8B40uj5A5JDVzOQ CxYSN4tKG6jA7ieSlwvqmq bGVmdDsgdmVydGljYWwtYW vxO841JOVp yQydWHJezZ2nVRTzgITvsX ccAV3rTICelmxjAxSZD2ma BJ4XJ2ATYUN0H2XsBrh7FP IdiRfsVD1z dFGtIFctNl5kzQywdQlbPM 4iGARzzsrdCREjuD5kRJFz lVXhkKtjUU2iLPIwhzabc8 00PdUmRKW4 QFGpwCPtH3MlhQ5fRtBrGF DdRHZuH1NskWAuHNorA050 DRxuHbF9GNAkhiZkL5SyYR FsaWduOiB0 w6C6Zr8sEe5xPz4xCWd4CB 36DE39wXKyj5Z8wBY5Z1Kn CGBaswqcwwhpgRY5QTWlYI SxtB17yVMp FIdtIx4hc8Y1q711IMBbKQ XkxK63By4clLmsUEHmnYJH mN4squvoa8lsqyyeBeOeWY JkKUr2TPw7 JTOuwMhsYkKlNON5SaL2JA B2yBSixH1goMfgrmcjqC6m Oyc+NvnpADGtiqY0U1EwWp q3LDYozHtz HJ0spPEuCUjsPc2mtYzceN jgJT2tFSNaolrvORCtsX1n KVJuxWJgmXonWR7sPXZtes nmt583XmBp MKW0RVRyxRVgO4OjmC7sDd GaXMOqMYLyN8OiyWRxJGfs K432MClxZaN3CUQppyPeL8 FsLWFsaWdu TgJ1w7A2Tv2FDL5ytZD7Z7 ZaMwh2RURsmOsoJM9inFEh VOkcTr9ztKtilUiwIQ9vXE BpbjtwYWRk rV8wHXCvoQUlsBxnXA6rWH Hztlzjk385BmGlFMA1WNAf uENgU2ZjkB1mYvVlRSWyBH GxF7IewMUg RWyjV005CYywHcE3FIQdzb SwA9KwVHMreHgwAsB0y3H0 Ap0PuYTnZCEhNP29CV21TV 55Y5IfAmai dGFibGU+PHRhYmxlIHdpZH WrGRaiEUUvWoPvuMioMA9l Dr6vEMNjMBXmbUnsxLLsRc Pix0pwRUFq TIxxJW1wlIjuP2YhyFX8OU Acc3e5Vw58I62pK8SomFM+ PZVdlZY0vJK9hG4xGvWsAy H9QHcsB685 JrXzeANkAdgza3uaa1fyjT i8NeVoOCBvyfChjAonRJG4 x8EwSd79G59vLMxqVYNnLZ IyMCUiIHZh pPsxeg9cgJ5bKn1+PGNvbC A7kCY3tA9cSdAtSfH1CEeh W216WsPizECbYtvuK06tZ5 JvdXA+PHRy Brs6PQFslGveYP5atZPxWZ qnCf5hHNS9HoOkJfIxKEzw D7NxCVRyiacgmghoiXQ9OW ZyHHLwpF64 Py0fgCrtWs1mXPExJGY4BG StjLUkY7AllW1fRlIdHBAm FVNuY9McfDTpGNnyU519OI dtKnR0SGOb ypHvP4BmNFFlrMzpXiX9l1 R0Xo7GeSpqpHAqTS6gFpEy YBq2J6BkGyg4VCHtvNwrHK 0ncGFkZGlu Af4cuPybiLpkEL2zGDDqav nyn083YgDbm8trFTYkcFAn PAsxOBA7Y53sv1E2QWGsXF GlZUA4nVI1 hA4uoGmpsjstzSQocAenrk SooFfuDCvjXCvtH103GJWy fCicGcVQGpl9K6YmHjy0OS GcpJqbHS9p bUFeRWdzEt2paItfwVlzID 7tAKUlxfvsq583OgLlh5jb FZRotWEcALtpDHF0I95el5 Z0AJVpAIOv SCJ9gPO3lC3ggIcenrcbuJ VmdDsgdmVydGljYWwtYWxp Q386RJTtrDliCj5HJdg5Q2 VjTsn8LVHc aSwzFD3jfBTyIYcsCy0dlX hgaPzjYF3xVXFcjjmfg553 PsWmi2ptOROijPOoCRqkFO Y2G80sl0I9 FJGpQWCpAZW5tRR5yE9zrC lnbjogbGVmdDsgdmVydGlj KDioECagL650RMGszMwuLs BheWVyOjwv dGQ+RK01pk27Z4GlTrxaNn q3AAKsOTV4cUP2pI8bXZRn DGczy0H7cAO6E3OjxaKyyy 9ig2pfXZBe ZTog (more content not included)... [facility] HCG.beta subunit Qn 1 m[IU]/mL Normal 1-3 [facility] Comment on above: Result Comment: GEST ATIONAL AGE HCG RANGE (mIU/mL) NON- <1-3 0.2-1 WEEKS 5-50 1-2 WEEKS 50-500 2-3 WEEKS 100-5,000 3-4 WEEKS 500-10,000 4-5 WEEKS 1,000-50,000 5-6 WEEKS 10,000-100,000 6-8 WEEKS 15,000-200,000 8-12 WEEKS 10,000-100,000 Performed By: #### 2 [id number] #### [facility] [address] [place] [address] CHEMISTRYOrdered By: SYSTEM SYSTEM on 03-24-2022 HCG.beta subunit Qn 1 m[IU]/mL Normal 1 - 3 mIU/mL FTM C Remisol CNPNon 03-24-2022 CNPN Telephone ([facility]) PRINCESS CANTU ([id number]) 1995 F Date Time Provider Department 03/24/22 KAVITA SWEET [facility] During your visit today, we recorded [...] OV, cancel OCT new OB thanks Mary Onofre, RN 03/24/2022 11:55 AM Signed VM left w req for RCTO Allergies As of Date: 03/24/2022 (No Known Allergies) Date Reviewed: 09/09/2021 Reviewed by: Brendan Blankenship PA-C - Fully Assessed Reason for Visit: Bleeding With [22363] Primary Visit Diagnosis:Bleeding in early [O20.9] Order(s):HCG QUANTITATIVE [SQHCGQT] Order #: [id number] FUTURE Prescriptions as of 03/24/2022 - metroNIDAZOLE [...] Encounter Status:Closed by BRENDAN SOUZA on 03/24/22 [facility] Consent for Treatmenton Consent for Treatment [id number]:[id number] [facility] Physician Orderon 03-24-2022 Physician Order [id number] 0CD:127 [facility]19[facility]20[facility] PRINCESS CANTU ([id number]) 1995 F Date Time Provider Department 03/19/22 [...] Status:Closed by MARY ONOFRE on 03/19/22 Normal [facility] Office Visit (Neuro-General) on 12-24-2021 Follow-up [...] or bowel/bladder incontinence. She was taken to [facility] in [place]. She had lab work and a CT [...] DAILY. Vitals Vital Signs Recorded: 24Dec2021 11:32AM Eenkgjmptzq08.1 F Heart Rate54 Ufoetmwn072 Hqmwqcbqu49 Height5 ft 9 in Gsjnmy242 lb 1.6 oz BMI Kaskwiinkz16.03 kg/m2 BSA Calculated2.11 Tobacco Useb) No Fall Screeninga) No falls within the last year O2 Nyxlpzwdtq394, RA Physical Exam Constitutional: General appearance: no [...] Dec 24 2021 11:37AM EST (Author) Normal [facility] Tobacco Screening.on 022 Fall risk assessment a) No falls within the last year MP-Neurolog y-Happy Jack SJW DO Work Phone: Tobacco use status [...] Nov 17 2021 1:34PM EST (Author) Normal [facility] Tobacco Screening.on 022 Adult depression screening assessment No MP-WSPC-Ramesh n NPS Work Phone: Fall risk assessment a) No falls within the last year MP-WSPC-Ramesh augustina NPS Work Phone: Tobacco use status [facility] b) No M P-WSPC-Ramesh n NPS Work Phone: Bact Vag Amplificationon Bact Vag Amplification Positive Criticall y abnormal Negative for bacterial vaginosis [facility] Comment on above: Performed By: #### G CCT #### [facility] [address] [place], [place] [address] CNOVon 09-09-2021 CNOV Office Visit (OBGA ) PRINCESS CANTU ([id number]) 1995 F Date Time Provider Department 09/09/21 10:00 AM BRENDAN BLANKENSHIP [facility] During your visit today, we recorded [...] History Social History Narrative Single No pregnancies 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 Portions of this record were documented by the [employer]. I, Brendan Blankenship, have reviewed this information as documented for accuracy and performed all elements of history taking, and edited the record as necessary. 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 [...] Order(s):MITCH / TRICHOMONAS AMPLIFICATION [SQCVTV] Order #: [id number] BACTERIAL VAGINOSIS AMPLIFICATION [SQBVAMP] Order #: [id number] GC/CHLAMYDIA DNA DET [SQGCCAMP] Order #: [id number] metroNIDAZOLE (FLAGYL) 500 mg tabletTake 1 tablet [...] Encounter Status:Closed (more content not included)... Normal [facility] Mitch Trich Amplon 022 Mitch glabrata RNA Negative Normal Negative [facility] Comment on above: Performed By: #### G CCT #### [facility] [address] [address] Mitch sp group RNA Negative Normal Negative [facility] Comment on above: Performed By: #### G CCT #### [facility] [address] [address] Trichomonas RNA Negative Normal [facility] Comment on above: Performed By: #### G CCT #### [facility] [address] [address] GC/Chlamydia Amplifon 2021 Chlamydia Amplif Negative Normal [facility] Comment on above: Performed By: #### G CCT #### [facility] [address] [address] GC Amplification Negative Normal [facility] Comment on above: Performed By: #### G CCT #### [address] [place] [address] [place] [address] GC/Chlam Amp Source Cervix Normal [facility] Comment on above: Performed By: #### G CCT #### [place] [address] Bact Vag Amplificationon Bact Vag Amplification Negative Normal Negat ko for bacterial vaginosis [facility] Comment on above: Performed By: #### C VTV, BVAMP #### [facility] CLIA [id number] [address] [place] [address] [facility] CNOVon 07-04-2021 CNOV Office Visit (OBGY ) CANTUPRINCESS HUGHES ([id number]) 1995 F [facility] Date Time Provider Department 07/04/21 4:00 PM GEORGIA DWYER PATRICIA During your visit today, we recorded the following information about you: Pulse Blood pressure Weight Height 74/minute 131/86 95.7 kg 1.727 m Last Period 06/07/21 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 APRN.NATURAL SCIENCES MANAGER 07/04/2021 4:39 PM Signed Princess is a [...] Ectopic0 Multiple0 Live Births0 Comment: Menarche 10 Surface Water Manager History LMP: 06/07/2021 (Exact Date), Having periods Age at Menarche: Age at First : Age at Menopause: Surface Water Manager History Comments: Sexual Activity: Yes; Male; same [...] external genitalia normal, normal Bartholin's glands, urethra, [place]'s glands, no vulvar lesions, no cervical lesions, [...] type of detergents for washing undergarments, wiping duvtt-vj-joxp, sleep in loose shorts without underwear, shower [...] health screening schedule is recommended by the [place] [employer] (ACOG). Some of these tests may be ordered or performed by your primary care doctor. Pap test screening The pap test loo (more content not included)... Normal [facility] Mitch Trich Amplon 12-17-2 021 Mitch glabrata RNA Negative Normal Negative [facility] Comment on above: Performed By: #### C VTV, BVAMP #### [facility] CLIA [id number] [address] [place] [address] [place] Mitch sp group RNA Negative Normal Negative [facility] Comment on above: Performed By: #### C VTV, BVAMP #### [facility] CLIA [id number] [address] [place] [address] [place] Trichomonas RNA Negative Normal [facility] Comment on above: Performed By: #### C VTV, BVAMP #### [facility] CLIA [id number] [address] [place] [address] [place] GC/Chlamydia Amplifon 2020 Chlamydia Amplif Negative Normal [facility] Comment on above: Performed By: #### G CCT #### [place] [address] GC Amplification Negative Normal [facility] Comment on above: Performed By: #### G CCT #### [place] [address] GC/Chlam Amp Source Cervix Normal [facility] Comment on above: Performed By: #### G CCT #### [place] [address] Tobacco Screening.on 021 Fall risk assessment a) No falls within the last year MP-Neurolog y-Eugene SJW DO Work Phone: Tobacco use status [facility] b) No M P-Neurolog y-Eugene SJW DO [...] trachomatis and Neisseria gonorrhoeae testing on specific shb-ZMQ-bycenbsx sample types (female urine samples) have been validated by [facility]. This laboratory is certified by CLIA to perform high complexity testing. Samples from all other sites are not validated for this method. N. gonorrhoeae rRNA HUMERA+probe Ql (Unsp spec) Negative Negative An[facility] Work Phone: Comment on above: SOURCE: Urine The AP KELSIE Combo 2 assay is FDA-approved for Chlamydia trachomatis and Neisseria gonorrhoeae testing on female endocervical and vaginal swabs, ThinPrep liquid pap samples, male urine samples and urethral swabs. Performance characteristics for Chlamydia trachomatis and Neisseria gonorrhoeae testing on specific jgm-NAU-lwwvbtco sample types (female urine samples) have been validated by [facility]. This laboratory is certified by CLIA to perform high complexity testing. Samples from all other sites are not validated for this method. TSHon 12-24-2020 TSH Qn 2.30 m[IU]/L Normal 0.44 - 3.98 [facility] Comment on above: Result Comment: TSH testing is performed using different testing methodology at [facility] than at other [facility]. Direct result comparisons should only be made within the same method. Performed By: #### T SH2 #### [facility] [address] [place] [address] TSH - Thyroid Stimulating Ho rmone, Serumon 12-24-2020 TSH Qn 2.30 m[IU]/L See Below [employer] Phone: Comment on above: Reference Range: 0.4 4 - 3.98 TSH testing is performed using different testing methodology at [facility] than at other [facility]. Direct result comparisons should only be made within the same method. Tobacco Screening.on 021 Fall risk assessment a) No falls within the last year [employer]-Ramesh [employer] Work Phone: Tobacco use status CPHS b) No M P-WSPC-Ramesh n NPS Work Phone: CBCon 08-14-2020 Erythrocyte distribution width (RBC) [Ratio] 13.2 % Normal 11.5 - 14.5 [facility] Comment on above: Performed By: #### C BC #### [address] [address] Hematocrit (Bld) [Volume fraction] 39.5 % Normal 36.0 - 46.0 [facility] Comment on above: Performed By: #### C BC #### [address] [address] Hemoglobin (Bld) [Mass/Vol] 13.0 g/dL Normal 12.0 - 16.0 [facility] Comment on above: Performed By: #### C BC #### [address] [address] MCHC (RBC) [Mass/Vol] 32.9 g/dL Normal 32.0 - 36.0 [facility] Comment on above: Performed By: #### C BC #### [address] [address] MCV (RBC) [Entitic vol] 91 fL Normal 80 - 100 [facility] Comment on above: Performed By: #### C BC #### [address] [address] NUCLEATED RBC 0.0 /100 WBC Normal 0.0 - 0.0 [facility] Comment on above: Performed By: #### C BC #### [address] [address] Platelets (Bld) [#/Vol] 235 10*3/uL Normal 150 - 450 [facility] Comment on above: Performed By: #### C BC #### [address] [address] RBC 4.33 x10E12/L Normal 4.00 - 5.20 [facility] Comment on above: Performed By: #### C BC #### [address] [address] WBC (Bld) [#/Vol] 5.8 10*3/uL Normal 4.4 - 11.3 [facility] Comment on above: Performed By: #### C BC #### [address] [address] COMPREHENSIVE PANELon 2020 Albumin [Mass/Vol] 4.7 g/dL Normal 3.4 - 5.0 [facility] Comment on above: Performed By: #### C MP #### [address] [address] ALP [Catalytic activity/Vol] 53 U/L Normal 33 - 110 [facility] Comment on above: Performed By: #### C MP #### [address] [address] ALT [Catalytic activity/Vol] 41 U/L Normal 7 - 45 [facility] Comment on above: Result Comment: Desiree ents treated with Sulfasalazine may generate falsely decreased results for ALT. Performed By: #### C MP #### [address] [address] Anion gap [Moles/Vol] 10 mmol/L Normal 10 - 20 [facility] Comment on above: Performed By: #### C MP #### [address] [address] AST [Catalytic activity/Vol] 27 U/L Normal 9 - 39 [facility] Comment on above: Performed By: #### C MP #### [address] [address] Bilirubin [Mass/Vol] 0.6 mg/dL Normal 0.0 - 1.2 [facility] Comment on above: Performed By: #### C MP #### [address] [address] Calcium [Mass/Vol] 9.5 mg/dL Normal 8.6 - 10.3 [facility] Comment on above: Performed By: #### C MP #### [address] [address] Chloride [Moles/Vol] 105 mmol/L Normal 98 - 107 [facility] Comment on above: Performed By: #### C MP #### [address] [address] Creatinine [Mass/Vol] 0.93 mg/dL Normal 0.50 - 1.05 [facility] Comment on above: Performed By: #### C MP #### [address] [address] GFR- AM. >60 Normal >60 [facility] Comment on above: Result Comment: CALC ULATIONS OF ESTIMATED GFR ARE PERFORMED USING THE MDRD STUDY EQUATION FOR THE IDMS-TRACEABLE CREATININE METHODS. CLIN CHEM 2007;53:766-72 Performed By: #### C MP #### [address] [address] GFR-NON AM. >60 Normal >60 [facility] Comment on above: Performed By: #### C MP #### [address] [address] Glucose [Mass/Vol] 94 mg/dL Normal 74 - 99 [facility] Comment on above: Performed By: #### C MP #### [address] [address] HCO3 (Bld) [Moles/Vol] 28 mmol/L Normal 21 - 32 [facility] Comment on above: Performed By: #### C MP #### [address] [address] Potassium [Moles/Vol] 4.4 mmol/L Normal 3.5 - 5.3 [facility] Comment on above: Performed By: #### C MP #### [address] [address] Protein [Mass/Vol] 7.3 g/dL Normal 6.4 - 8.2 [facility] Comment on above: Performed By: #### C MP #### [address] [address] Sodium [Moles/Vol] 139 mmol/L Normal 136 - 145 [facility] Comment on above: Performed By: #### C MP #### [facility] [address] [facility] [place] [address] Urea nitrogen [Mass/Vol] 13 mg/dL Normal 6 - 23 [facility] Comment on above: Performed By: #### C MP #### [facility] [address] [place] [address] Hematologyon 08-14-2020 Hematocrit (Bld) [Volume fraction] 39.5 % See Below -Neurolog y-Happy Jack SJW DO Work Phone: Comment on above: Reference Range: 36. 0 - 46.0 Hemoglobin (Bld) [Mass/Vol] 13.0 g/dL See Below -Neurolog y-Happy Jack SJW DO Work Phone: Comment on above: Reference Range: 12. 0 - 16.0 MCV (RBC) [Entitic vol] 91 fL 80 - 100 M P-Neurolog -Happy Jack SJW DO Work Phone: Platelets (Bld) [#/Vol] 235 {x10E9/L} 150 - 450 -Neurolog y-Happy Jack SJW DO Work Phone: RBC (Bld) [#/Vol] 4.33 {x10E12/L} See Below -Neurolog y-Happy Jack SJW DO Work Phone: Comment on above: Reference Range: 4.0 0 - 5.20 WBC (Bld) [#/Vol] 5.8 {x10E9/L} 4.4 - 11.3 MP-N eurolog y-Happy Jack SJW DO Work Phone: WBC (Bld) [#/Vol] 0.0 {/100_WBC} 0.0 - 0.0 MP- Neurolog y-Happy Jack SJW DO Work Phone: LAMOTRIGINE- LAMICTALon 07-20 LAMOTRIGINE- LAMICTAL 6.4 ug/mL Normal 2.5 - 15.0 [facility] Comment on above: Performed By: #### L AMOT #### [facility] [address] [address] Lamotrigine Level, Serumon 0 08-14-2020 Lamotrigine [Mass/Vol] 6.4 ug/mL 2.5 - 15.0 MP -Neurolog y-Happy Jack SJW DO Work Phone: Metabolic Panelon 08-14-2020 ALP [Catalytic activity/Vol] 53 U/L 33 - 110 MP-Neurolog y-Eugene SJW DO Work Phone: [phone] Anion gap [Moles/Vol] 10 mmol/L 10 - 20 MP- Neurolog y-Happy Jack SJW DO Work Phone: [phone] Bilirubin [Mass/Vol] 0.6 mg/dL 0.0 - 1.2 MP-N eurolog y-Eugene SJW DO Work Phone: Calcium [Mass/Vol] 9.5 mg/dL 8.6 - 10.3 MP-Jozef rolog y-Eugene SJW DO Work Phone: Chloride [Moles/Vol] 105 mmol/L 98 - 107 MP-N eurolog y-Happy Jack SJW DO Work Phone: CO2 [Moles/Vol] 28 mmol/L 21 - 32 MP-Neurol og y-Eugene SJW DO Work Phone: Creatinine [Mass/Vol] 0.93 mg/dL See Below MP- Neurolog y-Eugene SJW DO Work Phone: Comment on above: Reference Range: 0.5 0 - 1.05 Glucose [Mass/Vol] 94 mg/dL 74 - 99 MP-Jozef rolog y-Happy Jack SJW DO Work Phone: Potassium [Moles/Vol] 4.4 mmol/L 3.5 - 5.3 MP- Neurolog y-Happy Jack SJW DO Work Phone: Protein [Mass/Vol] 7.3 g/dL 6.4 - 8.2 [facility] DO Work Phone: Sodium [Moles/Vol] 139 mmol/L 136 - 145 [facility] DO Work Phone: Urea nitrogen [Mass/Vol] 13 mg/dL 6 - 23 [facility] DO Work Phone: Otheron 08-14-2020 Albumin BCP dye [Mass/Vol] 4.7 g/dL 3.4 - 5.0 [facility] DO Work Phone: ALT With P-5'-P [Catalytic activity/Vol] 41 U/L 7 - 45 [facility] DO Work Phone: Comment on above: Patients treated wit h Sulfasalazine may generate falsely decreased results for ALT. AST With P-5'-P [Catalytic activity/Vol] 27 U/L 9 - 39 [facility] DO Work Phone: Erythrocyte distribution width (RBC) [Ratio] 13.2 % See Below [facility] DO Work Phone: Comment on above: Reference Range: 11. 5 - 14.5 MCHC (RBC) [Mass/Vol] 32.9 g/dL See Below [facility] DO Work Phone: Comment on above: Reference Range: 32. 0 - 36.0 >60 >60 [facility] DO Work Phone: Comment on above: CALCULATIONS OF MICHAEL MATED GFR ARE PERFORMED USING THE MDRD STUDY EQUATION FOR THE IDMS-TRACEABLE CREATININE METHODS. CLIN CHEM 2007;[id number] MRI BRAIN W WO CONTRASTon There are no acute intracranial changes, no evidence of ischemia or hemorrhage. There are no regions of signal abnormality. There are no areas of abnormal enhancement after contrast administration. [place] EXAMINATION: MRI BRA IN W WO [...] The calvarium and soft tissues are unremarkable. [place], [place], [place] Incoming Radiant Results From [email or web address] - 05/09/2020 3:02 PM EDT EXAMINATION: MRI [...] areas of abnormal enhancement after contrast administration. [place] MRI BRAIN W WO CONTRAST EXAMINATION: [...] Basophils (Bld) [#/Vol] 0.1 10*3/uL Normal 0.0-0.2 [facility] Comment on above: Performed By: #### C BCWD #### [facility] [address] [place] [address] Basophils/100 WBC (Bld) 0.4 % Normal [facility] Comment on above: Performed By: #### C BCWD #### [facility] [address] [place] [address] Eosinophils (Bld) [#/Vol] 0.5 10*3/uL Normal 0.0-0.7 [facility] Comment on above: Performed By: #### C BCWD #### [facility] [address] [place] [address] Eosinophils/100 WBC (Bld) 4.2 % Normal [facility] Comment on above: Performed By: #### C BCWD #### [facility] [address] [place] [address] Erythrocyte distribution width (RBC) [Ratio] 12.5 % Normal 11.5-14.5 [facility] Comment on above: Performed By: #### C BCWD #### [facility] [address] [place] [address] Hematocrit (Bld) [Volume fraction] 39.4 % Normal 37.0-47.0 [facility] Comment on above: Performed By: #### C BCWD #### [facility] [address] [place] [address] Hemoglobin (Bld) [Mass/Vol] 13.3 g/dL Normal 12.0-16.0 [facility] Comment on above: Performed By: #### C BCWD #### [facility] [address] [place] [address] Lymphocytes (Bld) [#/Vol] 3.2 10*3/uL Normal 1.0-4.8 [facility] Comment on above: Performed By: #### C BCWD #### [facility] [address] [place] [address] Lymphocytes/100 WBC (Bld) 26.9 % Normal [facility] Comment on above: Performed By: #### C BCWD #### [facility] [facility] [address] [place] [address] MCH (RBC) [Entitic mass] 29.8 pg Normal 27.0-31.3 [facility] Comment on above: Performed By: #### C BCWD #### [facility] [address] [place] [address] MCHC (RBC) [Mass/Vol] 33.8 % Normal 33.0-37.0 [facility] Comment on above: Performed By: #### C BCWD #### [facility] [address] [place] [address] MCV (RBC) [Entitic vol] 88.4 fL Normal 82.0-100.0 [facility] Comment on above: Performed By: #### C BCWD #### [facility] [address] [place] [address] Monocytes (Bld) [#/Vol] 0.8 10*3/uL Normal 0.2-0.8 [facility] Comment on above: Performed By: #### C BCWD #### [facility] [address] [place] [address] Monocytes/100 WBC (Bld) 6.8 % Normal [facility] Comment on above: Performed By: #### C BCWD #### [facility] [address] [place] [address] Neutrophils (Bld) [#/Vol] 7.3 10*3/uL Critically high 1.4-6.5 [facility] Comment on above: Performed By: #### C BCWD #### [facility] [address] [place] [address] Neutrophils/100 WBC (Bld) 61.7 % Normal [facility] Comment on above: Performed By: #### C BCWD #### [facility] [address] [place] [address] Platelets (Bld) [#/Vol] 314 10*3/uL Normal 130-400 [facility] Comment on above: Performed By: #### C BCWD #### [facility] [address] [place] [address] RBC (Bld) [#/Vol] 4.45 10*6/uL Normal 4.20-5.40 [facility] Comment on above: Performed By: #### C BCWD #### [facility] [address] [place] [address] WBC (Bld) [#/Vol] 11.9 10*3/uL Critically high 4.8-10.8 [facility] Comment on above: Performed By: #### C BCWD #### [facility] [address] [place] [address] CT HEAD WO CONTRASTon 2019 CT HEAD [...] De Jesus DO 04/19/20 Final result Normal [facility] Comprehensive Metabolic Pane crescencio 04-19-2020 Albumin [Mass/Vol] 4.9 g/dL Critically high 3.5-4.6 M [facility] Comment on above: Performed By: #### C MP #### [facility] [address] [place] [address] ALP [Catalytic activity/Vol] 40 U/L Normal 40-130 [facility] Comment on above: Performed By: #### C MP #### [facility] [address] [place] [address] ALT [Catalytic activity/Vol] 17 U/L Normal 0-33 [facility] Comment on above: Performed By: #### C MP #### [facility] [address] [place] [address] Anion gap [Moles/Vol] 14 mmol/L Normal 9-15 [facility] Comment on above: Performed By: #### C MP #### [facility] [address] [place] [address] AST [Catalytic activity/Vol] 17 U/L Normal 0-35 [facility] Comment on above: Performed By: #### C MP #### [facility] [address] [place] [address] Bilirubin [Mass/Vol] mg/dL Normal 0.2-0.7 [facility] Comment on above: Performed By: #### C MP #### [facility] [address] [place] [address] Calcium [Mass/Vol] 10.0 mg/dL Critically high 8.5-9.9 [facility] Comment on above: Performed By: #### C MP #### [facility] [address] [place] [address] Chloride [Moles/Vol] 101 mmol/L Normal 95-107 [facility] Comment on above: Performed By: #### C MP #### [facility] [address] [place] [address] CO2 [Moles/Vol] 24 mmol/L Normal 20-31 [facility] Comment on above: Performed By: #### C MP #### [facility] [address] [place] [address] Creatinine [Mass/Vol] 0.87 mg/dL Normal 0.50-0.90 [facility] Comment on above: Performed By: #### C MP #### [facility] [address] [place] [address] GFR/1.73 sq M predicted among blacks MDRD (S/P/Bld) [Vol rate/Area] mL/min/{1.73_m2} Normal >60 [facility] Comment on above: Result Comment: >60 mL/min/1.73m2 EGFR, calc. for ages 18 and older using the MDRD formula (not corrected for weight), is valid for stable renal function. Performed By: #### C MP #### [facility] [address] [place] [address] GFR/1.73 sq M.predicted MDRD (S/P/Bld) [Vol rate/Area] mL/min/{1.73_m2} Normal >60 [facility] Comment on above: Result Comment: >60 mL/min/1.73m2 EGFR, calc. for ages 18 and older using the MDRD formula (not corrected for weight), is valid for stable renal function. Performed By: #### C MP #### [facility] [address] [place] [address] Globulin (S) [Mass/Vol] 3.1 g/dL Normal 2.3-3.5 [facility] Comment on above: Performed By: #### C MP #### [facility] [address] [place] [address] Glucose [Mass/Vol] 94 mg/dL Normal 70-99 [facility] Comment on above: Performed By: #### C MP #### [facility] [address] [place] [address] Potassium [Moles/Vol] 3.9 mmol/L Normal 3.4-4.9 [facility] Comment on above: Performed By: #### C MP #### [facility] [address] [place] [address] Protein [Mass/Vol] 8.0 g/dL Normal 6.3-8.0 [facility] Comment on above: Performed By: #### C MP #### [facility] [address] [place] [address] Sodium [Moles/Vol] 139 mmol/L Normal 135-144 [facility] Comment on above: Performed By: #### C MP #### [facility] [address] [place] [address] Urea nitrogen [Mass/Vol] 12 mg/dL Normal 6-20 [facility] Comment on above: Performed By: #### C MP #### [facility] [address] [place] [address] Lactic Acidon 04-19-2020 Lactate [Moles/Vol] 1.8 mmol/L Normal 0.5-2.2 [facility] Comment on above: Performed By: #### L ACID #### [facility] [address] [place] [address] Prolactinon 04-19-2020 Prolactin 160.8 ng/mL Normal [facility] Comment on above: Result Comment: Defa ult Normal Ranges Female Male Non: 4.8-23.3 4.0-15.2 Performed By: #### P JAISON #### [facility] [address] [place] [address] Serum HCG Qualitativeon HCG.beta subunit Qn Negative Normal [facility] Comment on above: Performed By: #### S HCG #### [facility] [address] [place] [address] Urinalysis, reflex to cultur emily 04-19-2020 Urine Reflexed to Culture Not Indicated Normal [facility] Comment on above: Performed By: #### U AR #### [facility] [address] [place] [address] Bilirubin Ql (U) Negative Normal Negative [facility] Comment on above: Performed By: #### U AR #### [facility] [address] [place] [address] Clarity (U) Clear Normal Clear [facility] Comment on above: Performed By: #### U AR #### [facility] [address] [place] [address] Color (U) Yellow Normal Straw/[place] [facility] Comment on above: Performed By: #### U AR #### [facility] [address] [place] [address] Glucose Ql (U) Negative Normal Negative [facility] Comment on above: Performed By: #### U AR #### [facility] [address] [place] [address] Hemoglobin Ql (U) Trace-intact Normal Negative [facility] Comment on above: Performed By: #### U AR #### [facility] [address] [place] [address] Ketones Ql (U) Negative Normal Negative [facility] Comment on above: Performed By: #### U AR #### [facility] [address] [place] [address] Leukocyte esterase Test strip Ql (U) Negative Normal Negative [facility] Comment on above: Performed By: #### U AR #### [facility] [address] [place] [address] Nitrite Ql (U) Negative Normal Negative [facility] Comment on above: Performed By: #### U AR #### [facility] [address] [place] [address] pH (U) 6.0 [pH] Normal 5.0-9.0 [facility] Comment on above: Performed By: #### U AR #### [facility] [address] [place] [address] Protein Ql (U) Negative Normal Negative [facility] Comment on above: Performed By: #### U AR #### [facility] [address] [place] [address] Specific gravity (U) [Rel density] 1.020 Normal 1.005-1.03 [facility] Comment on above: Performed By: #### U AR #### [facility] [address] [place] [address] Urobilinogen Qn (U) 0.2 {Alan'U}/dL Normal < 2.0 [facility] Comment on above: Performed By: #### U AR #### [facility] [address] [place] [address] Urine Microscopicon 04-19-20 20 Epithelial cells LM Ql (Urine sed) 0-2 Normal [facility] Comment on above: Performed By: #### U ARELY #### [facility] [address] [place] [address] RBC (U) [#/Vol] 0-2 Normal 0-2 [facility] Comment on above: Performed By: #### U ARELY #### [facility] [address] [place] [address] WBC (U) [#/Vol] 0-2 Normal 0-5 [facility] Comment on above: Performed By: #### U ARELY #### [facility] [address] [place] [address] CBC Auto Differentialon 10-0 Basophils (Bld) [#/Vol] 0.1 10*3/uL 0 - 0.2 K/u L [place] Basophils/100 WBC (Bld) 0.4 % [place] Eosinophils (Bld) [#/Vol] 0.5 10*3/uL 0 - 0.7 K/uL [place] Eosinophils/100 WBC (Bld) 4.2 % [place] Erythrocyte distribution width (RBC) [Ratio] 12.5 % 11.5 - 14.5 % [place] Hematocrit (Bld) [Volume fraction] 39.4 % 37 - 47 % [place] Hemoglobin (Bld) [Mass/Vol] 13.3 g/dL 12 - 16 g/dL [place] Interpretation and review of laboratory results Abnormal [place] Lymphocytes (Bld) [#/Vol] 3.2 10*3/uL 1 - 4.8 K/uL [place] Lymphocytes/100 WBC (Bld) 26.9 % [place] MCH (RBC) [Entitic mass] 29.8 pg 27 - 31.3 pg [place] MCHC (RBC) [Mass/Vol] 33.8 % 33 - 37 % [place] MCV (RBC) [Entitic vol] 88.4 fL 82 - 100 fL [place] Monocytes (Bld) [#/Vol] 0.8 10*3/uL 0.2 - 0.8 K /uL [place] Monocytes/100 WBC (Bld) 6.8 % [place] Neutrophils Absolute 7.3 K/uL High 1.4 - 6.5 K/uL [place] Neutrophils/100 WBC (Bld) 61.7 % [place] Platelets (Bld) [#/Vol] 314 10*3/uL 130 - 400 K /uL [place] RBC (Bld) [#/Vol] 4.45 10*6/uL [place] WBC (Bld) [#/Vol] 11.9 10*3/uL High 4.8 - 10.8 K/uL [place] Comprehensive Metabolic Pane crescencio 04-18-2020 Albumin [Mass/Vol] 4.9 g/dL High 3.5 - 4.6 g/dL [place] ALP [Catalytic activity/Vol] 40 U/L 40 - 130 U/L [place] ALT [Catalytic activity/Vol] 17 U/L 0 - 33 U/L [place] Anion gap [Moles/Vol] 14 mmol/L [place] AST [Catalytic activity/Vol] 17 U/L 0 - 35 U/L [place] Bilirubin Ql (U) <0.2 0.2 - 0.7 mg/dL [place] Calcium [Mass/Vol] 10.0 mg/dL High 8.5 - 9.9 mg/dL [place] Chloride [Moles/Vol] 101 mmol/L [place] CO2 [Moles/Vol] 24 mmol/L [place] Creatinine [Mass/Vol] 0.87 mg/dL 0.5 - 0.9 mg/dL [place] GFR >60.0 >60 [place] Comment on above: >60 mL/min/1.73m2 EG FR, calc. for ages 18 and older using the MDRD formula (not corrected for weight), is valid for stable renal function. GFR Non- >60.0 >60 [place] Comment on above: >60 mL/min/1.73m2 EG FR, calc. for ages 18 and older using the MDRD formula (not corrected for weight), is valid for stable renal function. Globulin (S) [Mass/Vol] 3.1 g/dL 2.3 - 3.5 g/ dL [place] Glucose [Mass/Vol] 94 mg/dL 70 - 99 mg/dL [place] Interpretation and review of laboratory results Abnormal [place] Potassium [Moles/Vol] 3.9 mmol/L [place] Protein [Mass/Vol] 8.0 g/dL 6.3 - 8 g/dL [place] Sodium [Moles/Vol] 139 mmol/L [place] Urea nitrogen [Mass/Vol] 12 mg/dL 6 - 20 mg/dL [place] HCG Qualitative, Serumon hCG Qual Negative [place] Lactic Acid, Plasmaon 2019 Lactate [Moles/Vol] 1.8 mmol/L 0.5 - 2. 2 mmol/L [place] Microscopic Urinalysison Epithelial Cells, UA 0-2 /HPF [place] RBC (U) [#/Vol] 0-2 [place] WBC, UA 0-2 [place] Urine Reflex to Cultureon Bilirubin Urine Negative Negative [place] Blood, Urine Trace-intact Negative [place] Clarity, UA Clear Clear [place] Color, UA Yellow Straw/Yellow [place] Glucose, Ur Negative Negative mg/dL [place] Ketones Ql (U) Negative Negative mg/dL [place] Leukocyte esterase Test strip Ql (U) Negative Negative [place] Nitrite, Urine Negative Negative [place] pH, UA 6.0 [place] Protein (U) [Mass/Vol] Negative Negative mg/d L [place] Specific [place], UA 1.020 [place] Urine Reflex to Culture Not Indicated [place] Urobilinogen, Urine 0.2 <2.0 E.U./dL [place] ECHOCARDIOGRAPHY REPORT (HL) on 05-10-2017 ECHOCARDIOGRAPHY REPORT (HL) PRINCESS CANTU [id number] 179.6F [id number] VASCULAR LABReferring: Koffi Uriarte A.Reading: CURTIS GARCIA [...] 4 CH 16.1 cm2LA Volume Indexed 21.05 ml/b4Uxjbghsgc/Systoli c FunctionMV E-wave Vmax 0.884 m/secMV deceleration time 193 msecMV A-wave Vmax 0.494 m/secLV septal e' Vmax 0.115 m/secLV lateral e' Vmax 0.189 m/secLV E:e' septal ratio 7.7 ratio [facility] PRINCESS CANTU [id number] [place] [address] [id number] 93Jackie Uriarte MDECHOCARDIOGRAPHY REPORTLV E:e' lateral ratio [...] structure. There is no evidence ofpulmonic regurgitation. [facility] PRINCESS CANTU [id number] [place] [address] [id number] 93[facility] Milwaukee[facility] roper MDECHOCARDIOGRAPHY REPORTPericardium:Ther e is no pericardial [...] function.This is a normal echocardiogram.PARAS CHOW05/10/2017 10:26:53 [facility] PRINCESS CANTU [id number] [place] [address] [id number] 93[facility] Milwaukee[facility] roper MDECHOCARDIOGRAPHY REPORT Normal [facility] BASIC METABOLIC PANELon 10- Anion gap 10 mmol/L Normal 6-18 [facility] Comment on above: Order Comment: Is pa tient fasting? YES Performed By: #### L BMP, LGFRP ####[facility] [id number] [place] [address] Calcium 9.6 mg/dL Normal 8.6-10.3 [facility] Comment on above: Order Comment: Is pa tient fasting? YES Performed By: #### L BMP, LGFRP ####[facility] [id number] [place] [address] Chloride 101 mmol/L Normal 98-107 [facility] Comment on above: Order Comment: Is pa tient fasting? YES Performed By: #### L BMP, LGFRP ####[facility] Le[address]oyvy32535 [place] [address] CO2 27 mmol/L Normal 21-32 [facility] Comment on above: Order Comment: Is pa tient fasting? YES Performed By: #### L BMP, LGFRP ####[facility] Th[address]jcivwn59737 [place] [address] Creatinine 0.74 mg/dL Normal 0.5-1.05 [facility] Comment on above: Order Comment: Is pa tient fasting? YES Performed By: #### L BMP, LGFRP ####[facility] M[address]hvntny88212 [place] [address] Glucose mass conc 82 mg/dL Normal 74-99 [facility] Comment on above: Order Comment: Is pa tient fasting? YES Performed By: #### L BMP, LGFRP ####[facility] Devavsitwh85415 [place] [address] Potassium molar conc 4.1 mmol/L Normal 3.5-5.3 [facility] Comment on above: Order Comment: Is pa tient fasting? YES Performed By: #### L BMP, LGFRP ####[facility] Otr[address]rafajl537[address] [place] [address] Sodium 134 mmol/L Low 136-145 [facility] Comment on above: Order Comment: Is pa tient fasting? YES Performed By: #### L BMP, LGFRP ####[facility] W[address]zudq[address] [place] [address] Urea nitrogen 14 mg/dL Normal 6-23 [facility] Comment on above: Order Comment: Is pa tient fasting? YES Performed By: #### L BMP, LGFRP ####[facility] [id number] [place] [address] CBC AUTOon 05-04-2017 Erythrocyte distribution width Auto Ratio (RBC) 12.8 % Normal 11.5-14.5 [facility] Comment on above: Performed By: #### L CBC ####[facility] [id number] [place] [address] Erythrocytes (RBC) 4.65 10*6/uL Normal 3.5-5.5 [facility] Comment on above: Performed By: #### L CBC ####[facility] Cnmmnhddvs54779 [place] [address] Hematocrit (HCT) 41.1 % Normal 36.0-48.0 [facility] Comment on above: Performed By: #### L CBC ####[facility] I[address]amszkwtr84045 [place] [address] Hemoglobin mass conc (Bld) 13.8 g/dL Normal 12.0-15.0 [facility] Comment on above: Performed By: #### L CBC ####[facility] [address] [place] [address] MCH 29.7 pg Normal 25.4-34.6 [facility] Comment on above: Performed By: #### L CBC ####[facility] [address] [place] [address] MCHC mass conc (RBC) 33.6 g/dL Normal 30.0-36.0 [facility] Comment on above: Performed By: #### L CBC ####[facility] [address] [place] [address] MCV 88.4 fL Normal 79.0-98.0 [facility] Comment on above: Performed By: #### L CBC ####[facility] [address] [place] [address] Platelet mean volume (PMV) 9.3 fL Normal 8.4-11.9 [facility] Comment on above: Performed By: #### L CBC ####[facility] [address] [place] [address] Platelets 277 10*3/uL Normal 140-440 [facility] Comment on above: Performed By: #### L CBC ####[facility] [address] [place] [address] WBC (Leukocytes) 6.1 10*3/uL Normal 3.9-11.0 [facility] Comment on above: Performed By: #### L CBC ####[facility] Wwrztbpouv210[address] [place] [address] GLOMERULAR FILTRATION RATE E SToaugustina 05-04-2017 eGFR (non-black) mL/min/{1.73_m2} Normal > 60 [facility] Comment on above: Order Comment: Is pa tient fasting? YES Performed By: #### L BMP, LGFRP ####[facility] Ax[address]rg[address]rxy823[address] [place] [address] IF AMER > 90 Normal > 60 [facility] Comment on above: Order Comment: Is pa tient fasting? YES Result Comment: Effe ctive 12/12/14:CKD-EPI equation / based on IDMS traceable creatinine.Continue to use the CREAT CLR-DOSE ([place]groft-Gault)value for determining medication dose. Performed By: #### L BMP, LGFRP ####[facility] [address]jgilka[address] [place] [address] Vital Signs Date Time Vital Sign Value Performing Clinician Yael murguia 11-09-2023 15:27-0400 Body height 175.26 cm [facility] 11-09-2023 15:27-0400 Body mass index (BMI) [Ratio] 28.2 kg/m2 [facility] 11-09-2023 15:27-0400 Body temperature 98.1 [degF] [facility] 11-09-2023 15:27-0400 Body weight 86.74 kg [facility] 11-09-2023 15:27-0400 Heart rate 63 /min [facility] 11-09-2023 15:27-0400 Respiratory rate 18 /min [facility] 11-09-2023 15:27-0400 SaO2% (BldA) [Mass fraction] 99 % [facility] 07-31-2022 10:54-0500 Body height 175.26 cm Koffiminesh Clementeson Work Phone: [employer] Work Phone: 07-31-2022 10:54-0500 Body mass index (BMI) [Ratio] 31.01 kg/m2 Koffi Rosas Uriarte Work Phone: [employer] Work Phone: 07-31-2022 10:54-0500 Body surface area Derived from formula 2.11 m2 Koffiminesh Uriarte Work Phone: RK-NRCS-[place]g [place] Work Phone: 07-31-2022 10:54-0500 Body temperature 97.6 [degF] Koffi Uriarte Work Phone: GH-AXQI-Kxhw [place] Work Phone: 07-31-2022 10:54-0500 Body weight 95.26 kg Koffi Uriarte Work Phone: NQ-RSRO-Fgkw [place] Work Phone: 07-31-2022 10:54-0500 Diastolic blood pressure 87 mm[Hg] Koffi Uriarte Work Phone: BT-ZRGL-Pjrs [place] Work Phone: 07-31-2022 10:54-0500 Heart rate 76 /min Koffi Uriarte Work Phone: AL-KXGJ-Jshn [place] Work Phone: 07-31-2022 10:54-0500 Respiratory rate 18 /min Koffi Uriarte Work Phone: XP-OOLA-[place] Work Phone: 07-31-2022 10:54-0500 Systolic blood pressure 121 mm[Hg] Koffi Uriarte Work Phone: OY-NLBW-Ubur [place] Work Phone: 12-24-2021 11:32-0400 Body height 175.26 cm Koffi Uriarte Work Phone: PM-Xzusnerkj-Ckuut ake SJW DO Work Phone: 12-24-2021 11:32-0400 Body mass index (BMI) [Ratio] 31.03 kg/m2 Koffi Uriarte Work Phone: MC-Xzjhscprj-Qkloc ake SJW DO Work Phone: 12-24-2021 11:32-0400 Body surface area Derived from formula 2.11 m2 Koffi Uriarte Work Phone: NX-Spkhxakxf-Rqlxt nicole SJW DO Work Phone: 12-24-2021 11:32-0400 Body temperature 97.1 [degF] Koffi Uriarte Work Phone: SE-Hzwsrcfoj-Vfgxq nicole SJW DO Work Phone: 12-24-2021 11:32-0400 Body weight 95.3 kg Koffi Uriarte Work Phone: UM-Fttrnurly-Ooodv nicole SJW DO Work Phone: 12-24-2021 11:32-0400 Diastolic blood pressure 76 mm[Hg] Koffi Uriarte Work Phone: WD-Pjtmipmxu-Xfzeq nicole W DO Work Phone: 12-24-2021 11:32-0400 Heart rate 54 /min Koffi Uriarte Work Phone: DX-Onfoejdnm-Joioi nicole W DO Work Phone: 12-24-2021 11:32-0400 SaO2% (BldA) [Mass fraction] 100 % Koffi Uriarte Work Phone: IS-Likrxsnla-Kxlvn nicole W DO Work Phone: 12-24-2021 11:32-0400 Systolic blood pressure 114 mm[Hg] Koffi Uriarte Work Phone: PT-Dhkeqkktx-Zlppq nicole SJW DO Work Phone: 11-17-2021 13:08-0400 Body height 172.72 cm Koffi Uriarte Work Phone: QS-UMGE-Pmok [place] Work Phone: 11-17-2021 13:08-0400 Body mass index (BMI) [Ratio] 32.39 kg/m2 Koffi Uriarte Work Phone: GH-VIXW-Lwug [place] Work Phone: 11-17-2021 13:08-0400 Body surface area Derived from formula 2.1 m2 Koffi Uriarte Work Phone: ZC-YCXE-Ieuz [place] Work Phone: 11-17-2021 13:08-0400 Body temperature 97 [degF] Koffi Uriarte Work Phone: LU-CAUS-Hgtz [place] Work Phone: 11-17-2021 13:08-0400 Body weight 96.62 kg Koffi Uriarte Work Phone: GF-BSAJ-Ihcz [place] Work Phone: 11-17-2021 13:08-0400 Diastolic blood pressure 84 mm[Hg] Koffi Uriarte Work Phone: RY-QKMJ-Ionh [place] Work Phone: 11-17-2021 13:08-0400 Heart rate 70 /min Koffi Uriarte Work Phone: OP-JATC-Fqmg [place] Work Phone: 11-17-2021 13:08-0400 Respiratory rate 18 /min Koffi Uriarte Work Phone: HA-DAGA-Enuf [place] Work Phone: 11-17-2021 13:08-0400 SaO2% (BldA) [Mass fraction] 96 % Koffi Uriarte Work Phone: UE-KDYW-Bmsv [place] Work Phone: 11-17-2021 13:08-0400 Systolic blood pressure 126 mm[Hg] Koffi Uriarte Work Phone: CU-JLGF-Yhlq [place] Work Phone: 06-25-2021 10:54-0500 Body height 172.72 cm Koffi Uriarte Work Phone: TW-Xgillftbq-Dvjlv nicole SJW DO Work Phone: 06-25-2021 10:54-0500 Body mass index (BMI) [Ratio] 32.08 kg/m2 Koffi A Uriarte Work Phone: RY-Iizztdkzn-Jaijh nicole SJW DO Work Phone: 06-25-2021 10:54-0500 Body surface area Derived from formula 2.09 m2 Koffi Clementeson Work Phone: LO-Jnroigknr-Hldcl nicole SJW DO Work Phone: 06-25-2021 10:54-0500 Body temperature 97.1 [degF] Koffi Clementeson Work Phone: IX-Uqthitkmm-Jgrkn nicole SJW DO Work Phone: 06-25-2021 10:54-0500 Body weight 95.71 kg Koffi Clementeson Work Phone: WI-Ohuaksfqv-Ejvas nicole SJW DO Work Phone: 06-25-2021 10:54-0500 Diastolic blood pressure 62 mm[Hg] Koffi Clementeson Work Phone: QL-Ldiguvayc-Hyrrw nicole SJW DO Work Phone: 06-25-2021 10:54-0500 Heart rate 67 /min Koffi A Uriarte Work Phone: SN-Oxwafzphf-Grqfy nicole SJW DO Work Phone: 06-25-2021 10:54-0500 Respiratory rate 18 /min Koffi A Uriarte Work Phone: AB-Wffnpszgn-Mzimu nicole SJW DO Work Phone: 06-25-2021 10:54-0500 SaO2% (BldA) [Mass fraction] 99 % Koffi A Chapito Work Phone: CR-Rnkglkdji-Muruw nicole SJW DO Work Phone: 06-25-2021 10:54-0500 Systolic blood pressure 131 mm[Hg] Koffi Uriarte Work Phone: CW-Gnktfypbj-Irsgx nicole SJW DO Work Phone: 05-20-2021 15:59-0400 Body height 172.72 cm Koffi Uriarte Work Phone: NY-JEHA-Twhi [place] Work Phone: 05-20-2021 15:59-0400 Body mass index (BMI) [Ratio] 31.93 kg/m2 Koffi Uriarte Work Phone: ME-LGTO-Hscc [place] Work Phone: 05-20-2021 15:59-0400 Body surface area Derived from formula 2.09 m2 Koffi Uriarte Work Phone: XR-RLQP-Fpmv [place] Work Phone: 05-20-2021 15:59-0400 Body temperature 98.1 [degF] Koffi Uriarte Work Phone: PN-NQDC-Udrl [place] Work Phone: 05-20-2021 15:59-0400 Body weight 95.26 kg Koffi Uriarte Work Phone: YL-CTTO-Bdki [place] Work Phone: 05-20-2021 15:59-0400 Diastolic blood pressure 82 mm[Hg] Koffi Uriarte Work Phone: YI-MFEZ-Cvtt [place] Work Phone: 05-20-2021 15:59-0400 Heart rate 72 /min Koffi Uriarte Work Phone: MH-VKKE-Wphm [place] Work Phone: 05-20-2021 15:59-0400 Respiratory rate 16 /min Koffi Uriarte Work Phone: HU-HZOX-Ehbr [place] Work Phone: 05-20-2021 15:59-0400 Systolic blood pressure 122 mm[Hg] Koffi Uriarte Work Phone: DD-MTRV-Fiii [place] Work Phone: 12-24-2020 14:45-0400 Body height 172.72 cm Koffi Uriarte Work Phone: HJ-KYHG-Lykm [place] Work Phone: 12-24-2020 14:45-0400 Body mass index (BMI) [Ratio] 30.71 kg/m2 Koffi Uriarte Work Phone: WQ-XYZQ-Quot [place] Work Phone: 12-24-2020 14:45-0400 Body surface area Derived from formula 2.05 m2 Koffi Uriarte Work Phone: VV-ILEF-Dchn [place] Work Phone: 12-24-2020 14:45-0400 Body temperature 97.8 [degF] Koffi Uriarte Work Phone: KN-NUXZ-Ezjm [place] Work Phone: 12-24-2020 14:45-0400 Body weight 91.63 kg Koffi Uriarte Work Phone: CZ-QBEM-Lizq [place] Work Phone: 12-24-2020 12:59-0400 Body height 172.72 cm Koffi Uriarte Work Phone: ES-UQET-Pbqn [place] Work Phone: 12-24-2020 12:59-0400 Body mass index (BMI) [Ratio] 30.71 kg/m2 Koffi Clementeson Work Phone: HZ-DYMH-Sihn [place] Work Phone: 12-24-2020 12:59-0400 Body surface area Derived from formula 2.05 m2 Koffi Uriarte Work Phone: FQ-LBYS-Pmfn [place] Work Phone: 12-24-2020 12:59-0400 Body temperature 98.2 [degF] Koffi Uriarte Work Phone: XS-AVRG-Sslo [place] Work Phone: 12-24-2020 12:59-0400 Body weight 91.63 kg Koffi Uriarte Work Phone: ZR-MJND-Zyfw [place] Work Phone: 12-24-2020 12:59-0400 Diastolic blood pressure 90 mm[Hg] Koffi Uriarte Work Phone: IB-BVLX-Kitl [place] Work Phone: 12-24-2020 12:59-0400 Heart rate 75 /min Koffi Uriarte Work Phone: SD-OYPN-Yypc [place] Work Phone: 12-24-2020 12:59-0400 Respiratory rate 16 /min Koffi Uriarte Work Phone: CM-SHCR-Dzmv [place] Work Phone: 12-24-2020 12:59-0400 Systolic blood pressure 147 mm[Hg] Koffi Uriarte Work Phone: YT-IMXV-Lnif [place] Work Phone: 08-14-2020 13:26-0500 BMI (Body Mass Index) 29.04 kg/m2 Koffi Uriarte XZ-Wbvwcsovu-Rkwrm nicole SJW DO Work Phone: 08-14-2020 13:26-0500 Body Temperature 97.5 [degF] Koffi Uriarte -Neurology -[place] nicole SJW DO Work Phone: 08-14-2020 13:26-0500 Body weight 86.64 kg Koffi Uriarte MP-Neurology- [place] nicole SJW DO Work Phone: 08-14-2020 13:26-0500 BP Diastolic 100 mm[Hg] Koffi Uriarte MP-Neurology- [place] nicole SJW DO Work Phone: 08-14-2020 13:26-0500 BP Systolic 150 mm[Hg] Koffi Uriarte MP-Neurology- [place] nicole SJW DO Work Phone: 08-14-2020 13:26-0500 BSA (Body Surface Area) 2 m2 Koffi Uriarte TP-Gaikkerqx-Aovby nicole W DO Work Phone: 08-14-2020 13:26-0500 Height 172.72 cm Koffi Uriarte MP-Neurology- [place] nicole W DO Work Phone: 05-28-2020 15:24-0500 BMI (Body Mass Index) 28.59 kg/m2 Koffi Uriarte UE-BPCD-Jiox [place] Work Phone: 05-28-2020 15:24-0500 Body Temperature 97.6 [degF] Koffi Uriarte RI-HQKB-Bksv [place] Work Phone: 05-28-2020 15:24-0500 Body weight 85.28 kg Koffi Uriarte GX-UAOG-Ljpb [place] Work Phone: 05-28-2020 15:24-0500 BP Diastolic 82 mm[Hg] Koffi Uriarte ZD-ANZI-Dglh [place] Work Phone: 05-28-2020 15:24-0500 BP Systolic 122 mm[Hg] Koffi Uriarte HT-VCMV-[place]o [place] Work Phone: 05-28-2020 15:24-0500 BSA (Body Surface Area) 1.99 m2 Koffi Uriarte VI-UMNK-[place]o [place] Work Phone: 05-28-2020 15:24-0500 Height 172.72 cm Koffi Uriarte MP-WSPC-[place] Work Phone: 05-28-2020 15:24-0500 Pulse (Heart Rate) 70 /min Koffi Uriarte MP-WSPC-Av on Ruyb Work Phone: 05-28-2020 15:24-0500 Respiratory Rate 18 /min Koffi Uriarte MP-WSPC-[place] Work Phone: 04-25-2020 16:01-0400 BMI (Body Mass Index) 28.59 kg/m2 Koffi Uriarte MP-WSPC-[place] Work Phone: 04-25-2020 16:01-0400 Body Temperature 98.6 [degF] Koffi Uriarte MP-WSPC-[place] Work Phone: 04-25-2020 16:01-0400 Body weight 85.28 kg Koffi Uriarte MP-WSPC-[place] Work Phone: 04-25-2020 16:01-0400 BP Diastolic 101 mm[Hg] Koffi Uriarte MP-WSPC-[place] Work Phone: 04-25-2020 16:01-0400 BP Systolic 154 mm[Hg] Koffi Uriarte MP-WSPC-[place] Work Phone: 04-25-2020 16:01-0400 BSA (Body Surface Area) 1.99 m2 Koffi Uriarte MP-WSPC-[place] Work Phone: 04-25-2020 16:01-0400 Height 172.72 cm Koffi Uriarte MP-WSPC-[place] Work Phone: 04-25-2020 16:01-0400 Pulse (Heart Rate) 76 /min Koffi Uriarte MP-WSPC-[place] on [place] Work Phone: 04-25-2020 16:01-0400 Respiratory Rate 16 /min Koffi Uriarte MP-WSPC-[place] Work Phone: 04-19-2020 00:00-0400 BP Diastolic 83 mm[Hg] [facility] [place] [facility]-19-2020 00:00-0400 BP Systolic 144 mm[Hg] [facility] [place] 04-18-2020 22:17-0400 BMI (Body Mass Index) 28.06 kg/m2 [facility], [place] 04-18-2020 22:17-0400 Body Temperature 98.91 [degF] Tu Wright [facility], [place] 04-18-2020 22:17-0400 Body weight 86.18 kg Tu [facility] [place] 04-18-2020 22:17-0400 Height 175.3 cm [facility] [place] 04-18-2020 22:17-0400 Pulse (Heart Rate) 105 /min [facility] [place] 04-18-2020 22:17-0400 Pulse Oximetry 97 % [facility] [place] 04-18-2020 22:17-0400 Respiratory Rate 16 /min Tu Wright [facility], [place] Encounters Encounter Date Encounter Type Care Provider Facility Start: 11-09-2023 End: 11-09-2023 ambulatory [facility] Work Phone: Start: 11-09-2023 End: 11-09-2023 Patient encounter procedure [facility] Work Phone: Start: 08-11-2023 End: 08-11-2023 ambulatory SHIMA CLARK Not Available Start: 08-04-2023 End: 08-04-2023 ambulatory Willis April Facility:[facility] Start: 07-28-2023 End: 07-28-2023 ambulatory WILLIS APRIL Not Available Start: 07-14-2023 End: 07-14-2023 ambulatory SHIMA CLARK Not Available Start: 06-30-2023 End: 07-01-2023 ambulatory SHIMA CLARK Not Available Start: 06-16-2023 End: 06-16-2023 ambulatory SHIMA CLARK Not Available Start: 06-01-2023 End: 06-01-2023 ambulatory SHIMA RODAS Not Available Start: 04-30-2023 End: 04-30-2023 ambulatory NEDRA Jha [facility] Ambulatory Start: 04-30-2023 End: 04-30-2023 Office outpatient visit 15 minutes Nedra Calderon MD Work Phone: [facility] Comment on above: Seizure (CMS/HCC) (P rimary Dx) Start: 11-25-2022 End: 11-26-[address] WILLIS CHEN . Facility:[facility] Start: 11-16-2022 End: 11-17-[address] WILLIS CHEN . Facility: Start: 07-31-2022 Current tobacco non- user cad cap copd pv dm Koffi Uriarte Work Phone: [employer] Work Phone: Start: 07-31-2022 Periodic preventive med est patient 18-39 yrs Koffi Uriarte Work Phone: [employer] Work Phone: Start: 07-31-[address] 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 SCIENCES MANAGER Work Phone: CB/Gynecology Comment on above: Appointment Start: 03-18-2022 AUDIT Koffi roper Work Phone: YW-Vpoqanwwt-Ssnhvdk e SJW DO Work Phone: Start: 02-03-2022 ambulatory Brendan Blankenship PA-C Work Phone: OB/Gynecology Comment on above: Bacteria Vaginosis Start: 01-02-2022 AUDIT Koffi Carlson ardson Work Phone: BS-MUOV-[place] Work Phone: Start: 12-24-2021 Office outpatient vi sit 15 minutes Koffi A Uriarte Work Phone: FZ-Esmmmcuar-Vlrimcm e StorehouseW DO Work Phone: Start: 11-17-2021 Office outpatient vi sit 15 minutes Koffi A Uriarte Work Phone: AP-KLZH-Bwmc [place] Work Phone: Start: 09-29-2021 AUDIT Koffi Alison Carlson ardson Work Phone: DO-VYEY-Yxpj [place] Work Phone: Start: 09-09-2021 End: 09-09-2021 ambulatory BRENDAN BLANKENSHIP Facility:[facility] Start: 07-04-2021 End: 07-05-2021 ambulatory GEORGIA REYMUNDO Facility:[facility] Start: 07-04-2021 Encounter for gynecological examination (general) (routine) without abnormal findings GE[place] Start: 06-25-2021 Office outpatient vi sit 25 minutes Koffi A Uriarte Work Phone: YI-Vbpmyafxh-Pqhvckq e StorehouseW DO Work Phone: Start: 05-22-2021 Chart Update Koffi Carlson ardson Work Phone: NJ-RFOZ-Ghtm [place] Work Phone: Start: 05-20-2021 Office outpatient vi sit 25 minutes Koffi A Uriarte Work Phone: RJ-TAXH-Dtac [place] Work Phone: Start: 05-20-2021 Patient encounter procedure Koffi Uriarte Work Phone: BS-EKRM-Hoif [place] Work Phone: Start: 03-28-2021 AUDIT Koffi roper Work Phone: XP-JHSK-Tyid [place] Work Phone: Start: 12-24-2020 Chart Update Koffi roper Work Phone: RE-MSFI-Ppvg [place] Work Phone: Start: 12-24-2020 Office outpatient vi sit 25 minutes Koffi Uriarte Work Phone: RU-KNBD-[place]lew [place] Work Phone: Start: 08-14-2020 Patient encounter procedure Koffi Uriarte AK-Bpmjtohyw-Oshxlsa e StorehouseW DO Work Phone: Start: 06-11-2020 Patient encounter procedure Koffi Uriarte DP-Odzkdofio-Ozhhyvh e SJW DO Work Phone: Start: 05-28-2020 Patient encounter procedure Koffi Uriarte GA-GOSL-Ftby [place] Work Phone: Start: 05-09-2020 End: 05-12-2020 Patient encounter procedure [facility] Start: 05-09-2020 End: 05-11-2020 Subsequent hospital visit by physician Madeline Tidwell Rm 1 EEG Comment on above: 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) Start: 04-25-2020 Patient encounter procedure Koffi Uriarte XI-DBJB-[place]son [place] Work Phone: Start: 04-19-2020 End: 04-19-2020 Emergency department patient visit ZAC ANDERSON [facility] Start: 04-18-2020 End: 04-19-2020 Emergency department patient visit Tu Kale Curran Work Phone: [facility] Comment on above: Seizure (HCC) (Prima ry Dx) Start: 03-02-2019 Patient encounter procedure Koffi Uriarte HS-EWSA-Zstk [place] Work Phone: Start: 05-04-2017 Ambulatory Koffi Uriarte [place] [place] status Koffi Uriarte Work Phone: IM-WBCH-Fjkc [place] Work Phone: Procedures Date Procedure Procedure [...] brain brain stem w/o w/contrast material Spike Leif Work Phone: Start: 05-09-2020 Electroencephalogram w/rec awake&drowsy [...] ZAC ANDERSON Start: 04-19-2020 SEIZURE PRECAUTIONS ZAC MONICA Start: 04-19-2020 SALINE LOCK IV ZAC MONICA Start: 04-18-2020 Assay of lactate Tu Henley Carmen knutson Work Phone: Start: 04-18-2020 Urinalysis microscopic only Tu Henley [facility] Work Phone: Start: 04-18-2020 Urnls dip stick/tablet rgnt auto w/o microscopy Tu Henley Ceres Work Phone: Start: 04-18-2020 Blood count complete auto&auto difrntl wbc Tu Henley Ceres Work Phone: Start: 04-18-2020 Comprehensive metabolic panel Tu Henley Ceres Work Phone: Start: 04-18-2020 Gonadotropin chorionic qualitative Tu Henley Ceres Work Phone: History of No histor y of surgery Koffi Uriarte No history of surgery Shahnaz Uriarte Work Phone: Plan of Treatment Date Care Activity Detail Author Start: 10-02-2043 Zoster Vaccines (1 o f 2) Zoster Vaccines (1 of 2) [facility] Start: 02-17-2028 DTaP/Tdap/Td Vaccine s (8 - Td or Tdap) DTaP/Tdap/Td Vaccines (8 - Td or Tdap) [facility] Start: 08-02-2023 PHYSICAL, Provider: Koffi Uriarte, Status: Pen, Time: 9:00 AM PHYSICAL, Provider: Koffi Uriarte, Status: Nikita, Time: 9:00 AM HW-HHDP-Gvsq [place] Work Phone: Start: 08-02-2023 End: 08-02-2023 Patient encounter procedure 08/02/2023 9:00 AM EST Office Visit [facility] [address] [place] [address] [place] [address] [place] [address] [facility] Start: 07-02-2023 PAP TESTING PAP TESTING [facility] Start: 07-02-2023 Screening for malignant neoplasm of cervix [facility] Start: 12-24-2022 VIRFUVHOME, Provider : Nedra Calderon, Status: Pen, Time: 10:00 AM VIRFUVHOME, Provider: Nedra Calderon, Status: Pen, Time: 10:00 AM LL-Xsddlmnsk-Bcyuiub e StorehouseW DO Work Phone: Start: 05-22-2022 PHYSICAL, Provider: Koffi Uriarte, Status: Pen, Time: 9:50 AM PHYSICAL, Provider: Koffi Uriarte, Status: Pen, Time: 9:50 AM EX-TOXK-Qzyy [place] Work Phone: Start: 03-24-2022 End: 05-24-2022 Choriogonadotropin.bet a subunit [Units/volume] in Serum or Plasma HCG QUANTITATIVE Lab Routine Bleeding in early Expected: 03/24/2022, Expires: 05/24/2022 [facility] Work Phone: Comment on above: Expected: 03/24/2022 , Expires: 05/24/2022 Start: 03-19-2022 Influenza vaccination INFLUENZA (#1) [facility] Start: 12-24-2021 Thyroid stimulating hormone measurement TSH Level [facility] Start: 12-24-2021 FUVGENERAL, Provider : Nedra Calderon, Status: Pen, Time: 11:30 AM FUVGENERAL, Provider: Nedra Calderon, Status: Pen, Time: 11:30 AM UH-Nhljkdqrq-Emsansf e SJW DO Work Phone: Start: 11-17-2021 FUV, Provider: Koffi Uriarte, Status: Pen, Time: 1:00 PM FUV, Provider: Koffi Uriarte, Status: Pen, Time: 1:00 PM JH-OAZT-Ivfk [place] Work Phone: Start: 07-01-2021 COVID-19 VACCINE (3 - Booster for Pfizer series) COVID-19 VACCINE (3 - Booster for Pfizer series) [facility] Start: 06-25-2021 FUVGENERAL, Provider : Nedra Calderon, Status: Pen, Time: 2:00 PM FUVGENERAL, Provider: Nedra Calderon, Status: Pen, Time: 2:00 PM TH-XCFB-Bdji [place] Work Phone: Start: 06-25-2021 FUVGENERAL, Provider : Nedra Calderon, Status: Pen, Time: 11:00 AM FUVGENERAL, Provider: Nedra Calderon, Status: Pen, Time: 11:00 AM VG-QPYI-Ziej [place] Work Phone: Start: 05-20-2021 FUV, Provider: Koffi Uriarte, Status: Pen, Time: 3:40 PM FUV, Provider: Koffi Uriarte, Status: Pen, Time: 3:40 PM JO-IMRC-Crvy [place] Work Phone: Start: 03-31-2021 FUV, Provider: Koffi Uriarte, Status: Pen, Time: 2:00 PM FUV, Provider: Koffi Uriarte, Status: Pen, Time: 2:00 PM FV-HAPR-Ezoc [place] Work Phone: Start: 03-26-2021 COVID-19 Vaccine (3 - Pfizer series) COVID-19 Vaccine (3 - Pfizer series) [facility] Start: 03-19-2020 Influenza vaccination Flu vaccine (# 1) [place] Start: 03-02-2018 DTaP/Tdap/Td vaccine (7 - Td) DTaP/Tdap/Td vaccine (7 - Td) [place] Start: 03-02-2018 Urine microalbumin profile DTAP,TDAP,TD (7 - Td or Tdap) [facility] Start: 2014 Screening for malignant neoplasm of cervix [facility] Start: 10-02-2011 HEPATITIS C SCREENING HEPATITIS C [facility] Start: 10-02-2011 Hepatitis C screening Hepatitis C [facility] Start: 10-02-2011 HIV SCREENING HIV SCREENING [facility] Start: 2008 HIV screening HIV screen [facility] [place], [place] Start: 2005 Adult depression screening assessment DEPRESSION SCREENING [facility] Start: 2004 HPV vaccine (1 - 2-dose series) HPV vaccine (1 - 2-dose series) [place] Start: 04-09-1999 Varicella vaccination Varicell a Vaccines (1 of 2 - 2-dose childhood series) [facility] Start: 1994 Varicella vaccine (1 of 2 - 2-dose childhood series) Varicella vaccine (1 of 2 - 2-dose childhood series) [place] Start: 1993 HIV screening HIV Screening [facility] Start: 1993 Lipid panel Lipid Panel [facility] Start: 1993 Yearly Adult Physical Yearly Adult P hysical [facility] End: 04-18-2020 CT Head WO Contrast CT Head WO Contrast Imaging STAT Once for 1 Occurrences starting 04/18/2020 until 04/18/2020 [place] Comment on above: Once for 1 Occurrenc es starting 04/18/2020 until 04/18/2020 CT Head WO Contrast CT Head WO C ontrast Imaging STAT 04/18/2020 11:15 PM EDT [place] End: 04-18-2020 Prolactin Prolactin Lab STAT One Time for 1 Occurrences starting 04/18/2020 until 04/18/2020 [place] Comment on above: One Time for 1 Occur rences starting 04/18/2020 until 04/18/[address] AT 04/18/2020 11:17 PM EDT [place] Tamara Patterson Work Phone: [facility] NEGATED: Highlighted row has been ruled out! Planned Goals not documented Tamara Ruby Work Phone: Immunizations Immunization Date Immunization Notes Care Provider Radha laura 04-21-2022 influenza, injectabl e, quadrivalent, preservative free Koffi Uriarte Work Phone: [employer] Work Phone: 04-18-2021 influenza, injectabl e, quadrivalent, preservative free Koffi A Uriarte Work Phone: [employer] Work Phone: 01-29-2021 Pfizer-[employer] COVID-19 Vacc 30 MCG/0.3ML Intramuscular Suspension Koffi A Uriarte Work Phone: [employer] Work Phone: 01-08-2021 Pfizer-BioNTech COVID-19 Vacc 30 MCG/0.3ML Intramuscular Suspension Koffi Rosas Calester Work Phone: [employer] Work Phone: 05-09-2019 Influenza, injectabl e, Madin Claudia Canine Kidney, preservative free, quadrivalent Koffi Rosas Uriarte Work Phone: [employer] Work Phone: 04-28-2018 influenza, injectabl e, quadrivalent, contains preservative Koffi Uriarte Work Phone: [employer] Work Phone: 02-16-2018 tetanus toxoid, redu diego diphtheria toxoid, and acellular pertussis vaccine, adsorbed Koffi Rosas Uriaret Work Phone: [employer] Work Phone: 05-06-2017 influenza, injectabl e, quadrivalent, preservative free Koffi A Uriarte Work Phone: [employer] Work Phone: 01-14-2016 pneumococcal polysaccharide vaccine, 23 valent Koffi Rosas Calester Work Phone: [employer] Work Phone: 11-30-2014 tuberculin skin test ; purified protein derivative solution, intradermal [facility], [place] 12-15-2013 tuberculin skin test ; purified protein derivative solution, intradermal [facility], [place] 03-02-2008 tetanus toxoid, redu diego diphtheria toxoid, and acellular pertussis vaccine, adsorbed [facility] 02-25-2007 meningococcal polysaccharide (groups A, C, Y and W-135) diphtheria toxoid conjugate vaccine (MCV4P) [place], [place] 02-25-2007 Meningococcal, MCV4, unspecified conjugate formulation(groups A, C, Y and W-135) [facility] 03-12-1999 diphtheria, tetanus toxoids and acellular pertussis vaccine [facility] 03-12-1999 diphtheria, tetanus toxoids and acellular pertussis vaccine, unspecified formulation Koffi A Calester Work Phone: [employer] Work Phone: 03-12-1999 haemophilus influenz ae type b vaccine, HbOC conjugate [facility] 03-12-1999 measles, mumps and rubella virus vaccine [facility] 03-12-1999 poliovirus vaccine, inactivated [facility], [place] 03-12-1999 trivalent poliovirus vaccine, live, oral [place], [place] 01-07-1995 diphtheria, tetanus toxoids and acellular pertussis vaccine [facility] 01-07-1995 diphtheria, tetanus toxoids and acellular pertussis vaccine, unspecified formulation Koffi A Uriarte Work Phone: [employer] Work Phone: 10-22-1994 haemophilus influenz ae type b vaccine, conjugate unspecified formulation [place], [place] 10-22-1994 haemophilus influenz ae type b vaccine, PRP-OMP conjugate Koffi A Uriarte Work Phone: [employer] Work Phone: 10-22-1994 Hib, unspecified [facility], [place] 10-22-1994 measles, mumps and rubella virus vaccine [facility] 10-22-1994 poliovirus vaccine, inactivated [facility] 06-18-1994 hepatitis B vaccine, pediatric or pediatric/adolescent dosage Koffi Uriarte Work Phone: [facility] 06-18-1994 hepatitis B vaccine, unspecified formulation [facility] , [place] 04-16-1994 diphtheria, tetanus toxoids and acellular pertussis vaccine [facility], [place] 04-16-1994 diphtheria, tetanus toxoids and pertussis vaccine [facility] 04-16-1994 haemophilus influenz ae type b vaccine, conjugate unspecified formulation [place], [place] 04-16-1994 haemophilus influenz ae type b vaccine, HbOC conjugate Brendan Blankenship PA-C Work Phone: [facility] 04-16-1994 haemophilus influenz ae type b vaccine, PRP-OMP conjugate Koffi Uriarte Work Phone: [employer] Work Phone: 04-16-1994 Hib, unspecified [facility], [place] 04-16-1994 poliovirus vaccine, inactivated [facility] 04-16-1994 trivalent poliovirus vaccine, live, oral [facility], [place] 02-12-1994 diphtheria, tetanus toxoids and acellular pertussis vaccine [facility], [place] 02-12-1994 diphtheria, tetanus toxoids and pertussis vaccine [facility] 02-12-1994 haemophilus influenz ae type b vaccine, conjugate unspecified formulation [facility], [place] 02-12-1994 haemophilus influenz ae type b vaccine, HbOC conjugate Brendan Mcelroypp PA-C Work Phone: [facility] 02-12-1994 haemophilus influenz ae type b vaccine, PRP-OMP conjugate Koffi Uriarte Work Phone: [employer] Work Phone: 02-12-1994 Hib, unspecified [place] 02-12-1994 poliovirus vaccine, inactivated [facility] 02-12-1994 trivalent poliovirus vaccine, live, oral [place], [place] 01-08-1994 hepatitis B vaccine, pediatric or pediatric/adolescent dosage Koffi Alison Uriarte Work Phone: [facility] 01-08-1994 hepatitis B vaccine, unspecified formulation [place], [place] 1993 diphtheria, tetanus toxoids and acellular pertussis vaccine [place], [place] 1993 diphtheria, tetanus toxoids and pertussis vaccine [facility] 1993 haemophilus influenz ae type b vaccine, conjugate unspecified formulation [place], [place] 1993 haemophilus influenz ae type b vaccine, HbOC conjugate Brendan Blankenship PA-C Work Phone: [facility] 1993 haemophilus influenz ae type b vaccine, PRP-OMP conjugate Koffi Uriarte Work Phone: [facility] Work Phone: 1993 hepatitis B vaccine, pediatric or pediatric/adolescent dosage Koffi Uriarte Work Phone: [facility] 1993 hepatitis B vaccine, unspecified formulation [place], [place] 1993 Hib, unspecified [place], [place] 1993 poliovirus vaccine, inactivated [facility] 1993 trivalent poliovirus vaccine, live, oral [place] Payers Date Payer Category Payer Self-pay 2020 Unknown 2020 Unknown MMO MMO [employer] [id number] 2020-Present [phone] [address] [place] [address] PPO [id number] 2019 Unknown [id number] 1993 Unknown [id number] 1993 Unknown [id number] 1993 Unknown [id number] 1993 Unknown [id number] 1993 Unknown [id number] [id number] 1993 Unknown [id number] [id number] 1993 Unknown [id number] [id number] 1993 Unknown [id number] [id number] 1993 Unknown [id number] [id number] 1993 Unknown [id number] [id number] 1993 Unknown [id number] [id number] 1993 Unknown [id number] [id number] 1993 Unknown [id number] [id number] 1993 Unknown [id number] 1959 Unknown [id number] Unknown [id number] Unknown [id number] Unknown [id number] Social History Date Type Detail Facility Start: 04-18-2020 End: 11-09-2023 Tobacco smoking status NHIS Never smoker [facility] Start: 04-18-2020 End: 04-30-2023 Tobacco use and exposure Never used [place] Start: 04-18-2020 End: 09-09-2021 Alcohol intake Current drinker of alcohol (finding) [place] Start: 09-19-2019 History SDOH Financial 5 [place] Start: 09-19-2019 History SDOH Food Worry 1 [place] Start: 09-19-2019 History SDOH Transport Med 2 [place] Start: 04-18-2020 Alcohol Comment occasionally [place], [place] Start: 1993 Sex Assigned At Not on file [place] Start: 04-20-2023 End: 04-30-2023 Exposure to SARS-CoV-2 (event) Not sure [place], [place] Never smoker Never smoker [employer] Work Phone: Tobacco smoking status Never [facility] Sex Assigned At Female [facility] Start: 1995 Sex Assigned At Female [facility] NEGATED: Highlighted row - - [employer] Work Phone: NEGATED: Highlighted rowStart: NINF History of tobacco use Passive smoker [facility] Work Phone: Functional Status Date Assessment Result Facility NEGATED: Highlighted row Functional performance Functional status health issues are not documented Disease [employer] Work Phone: Mental Status Date Assessment Result Facility NEGATED: Highlighted row Cognitive function [Interpretation] Cognitive status health issues are not documented Disease [employer] Work Phone: Clinical Notes 08-09-2017 to 04-30-2023 [...] 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 Patient Active Problem List Diagnosis Abnormal weight [...] 5/5 throughout all four extremities. Coordination Right: Wyjsqg-na-mmcd normal.Left: Riqbtx-ja-vgxi normal. Physical Exam Eyes: Extraocular Movements: Extraocular [...] in 1 year documented in this encounter [facility] Work Phone: 11-25-2022 Note EXAMINATION: [...] No acute abnormality Electronically authenticated by: HAYLIE HOUSER Date: 2022-11-25 17:20 [facility] 04-16-2022 Note HNO ID: [id number] Author: Brendan Blankenship PA-C Service: ? 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 I, Brendan Blankenship, have reviewed this information as documented for accuracy and performed all elements of history taking, and edited the record as necessary. ROS: SEE HPI PE: GENERAL: well-appearing, in no acute distress LUNGS: Normal inspiratory effort DOUGH MIXER: Normal external genitalia, no vaginal bleeding, small [...] Medical Decision Making Level: 3 - Low [facility] 03-24-2022 Miscellaneous Notes VM left w req for RCTO please call patient back could have been a chemical will have nurse contact once blood work reviewed home test reliable if desiring OV for concerns please schedule other OV, cancel OCT new OB thanks calling today. LMP 02/11/22. Pt took HPT 9/1 d/t period being late. Pt got 3 [...] move appt sooner. documented in this encounter [facility] 03-19-2022 Miscellaneous Notes LMP 02/11, +hpt. Assisted w initial OBV. Advised to take vitamin w folic acid. First trimester precautions provided. handbook sent in . documented in this encounter [facility] 02-03-2022 Miscellaneous Notes The following approved medication requests have been transmitted electronically. Signed Prescriptions Disp Refills metroNIDAZOLE (FLAGYL) 500 mg tablet 14 tablet 0 Sig: Take 1 tablet by mouth twice daily. for vaginosis. Do not drink alcohol while taking this medication MICHELLE: No Brendan Souza APRN.NATURAL SCIENCES MANAGER Pt reporting vag discharge/odor- same symptoms as past +BV dx. Last annual 06/2021. Req for BV medications Pending Prescriptions Disp Refills METRONIDAZOLE 500 MG TABLET 14 tablet 0 Sig: Take 1 tablet by mouth twice daily. for vaginosis. Do not drink alcohol while taking this medication MICHELLE: No documented in this encounter [facility] 09-09-2021 Note HNO ID: [id number] Author: Brendan Blankenship PA-C Service: ? 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 Portions of this record were documented by the [employer]. I, Brendan Blankenship, have reviewed this information as documented for accuracy and performed all elements of history taking, and edited the record as necessary. 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 [...] Medical Decision Making Level: 3 - Low [facility] 07-04-2021 Note HNO ID: [id number] Author: 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 APRN.NATURAL SCIENCES MANAGER Service: ? Author Type: Nurse Practitioner Type: [...] Ectopic0 Multiple0 Live Births0 Comment: Menarche 10 Surface Water Manager History LMP: 06/07/2021 (Exact Date), Having periods Age at Menarche: Age at First : Age at Menopause: Surface Water Manager History Comments: Sexual Activity: Yes; Male; same [...] external genitalia normal, normal Bartholin's glands, urethra, [place]'s glands, no vulvar lesions, no cervical lesions, [...] type of detergents for washing undergarments, wiping cosjc-pz-xsze, sleep in loose shorts without underwear, shower immediately after intercourse/exercise, make sure perineum is gently blotted dry before dressing. Avoid scratching, scented pads/tampons/toilet papers, cranberry juice, bubble baths, and intercourse until symptoms are relieved. NO douching. If you shave, use a new razor at least twice monthly. 5) Follow up one year or sooner as needed 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 APRN.JUSTINE [facility] 08-09-2017 History of Past i llness Narrative Problem Noted Date Resolved Date NO SHOW 08/09/2017 08/09/2017 documented as of this encounter (statuses as of 02/03/2022) [facility] History of Past illness Narrative* Problem Noted Date Resolved Date NO SHOW 08/09/2017 08/09/2017 documented as of this encounter (statuses as of 03/19/2022) [facility] History of Past illness Narrative* Problem Noted Date Resolved Date NO SHOW 08/09/2017 08/09/2017 documented as of this encounter (statuses as of 03/24/2022) [facility] No data available for this section [facility] Diagnosis Acute vaginitis- Primary Vaginitis and vulvovaginitis, unspecified [facility] Diagnosis Bleeding in early - Primary Unspecified hemorrhage in early , unspecified as to episode of care [facility]* Diagnosis [facility]izure ([facility])- Primary Other convulsions documented in this encounter [facility] Work Phone: Evaluation noteNo assessment information available [facility] Work Phone: History of Present illness Narrative* The patient states she has been doing well with her blood pressure control since the last visit. She has no comorbid illnesses. She has no significant interval events. * Symptoms: The patient is currently asymptomatic. * Less anxiety lately. Broke up with her boyfriend. * Working in [place] [employer] at the [employer]. * BP is much improved on lisinopril. * Saw gyne for discharge. * was told she had BV and chlamydia. * took antibiotics, got better for a few weeks and now she is having discharge again and odor. no pelvic pain. [facility] Work Phone: History of Present illness Narrative* The patient states she has been doing well with her blood pressure control since the last visit. She has no comorbid illnesses. She has no significant interval events. * Symptoms: The patient is currently asymptomatic. * Less anxiety lately. Broke up with her boyfriend. 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 * BP is much improved on lisinopril. * Saw gyne for discharge. * was told she had BV and chlamydia. * took antibiotics, got better for a few weeks and now she is having discharge again and odor. no pelvic pain. [employer] Work Phone: Hospital Discharge instructions No data available for this section [facility] No data available for this section [facility] Summary Purpose Family History Mother Name Dates Details No pertinent family [...] No pertinent family history: Mother(V49.89, Z78.9) Status:Active Relationship Condition Age at Onset Recorded Date/T masha father Hypertension Unknown Not Specified Malignant neoplasm Unknown Advance Directives Documents on File Type Date Recorded Patient Mold Breaker Expl anation ACP-Advance Directive ACP-Power of Cloth Spreader Documents on File Type Date Recorded Patient Mold Breaker Expl anation ACP-Advance Directive ACP-Power of Cloth Spreader Documents on File Type Date Recorded Patient Mold Breaker Expl anation Advance Directive(s) 11/30/2015 2:19 PM Advance Directive Response Recorded Date/ Time Advance Directives No November 08, 3:18pm Reason for Referral Status Reason Specialty Diagnoses / Procedures Referre d By Contact Referred To Contact Open Radiology Diagnoses Nonintractable generalized idiopathic epilepsy without status epilepticus (HCC) Procedures MRI BRAIN W WO CONTRAST Spike Garcia MD [address] [address] Assessments Diagnosis Nonintractable generalized idiopathic epilepsy without status epilepticus (HCC) Diagnosis Seizure (HCC) Other convulsions Discharge Instructions * Attachments The following attachments cannot be sent through Care Everywhere. * Seizure (Yoruba) documented in this encounter Chief Complaint and Reason for Visit Chief Complaint Nausea, diarrhea Additional Source Comments INFORMATION SOURCE (unrecogn ized section and content) DATE CREATED AUTHOR 01/11/2018 [facility] DATE CREATED AUTHOR AUTHOR'S ORGANIZ ATION 04/19/2020 [facility] DATE CREATED AUTHOR AUTHOR'S ORGANIZ ATION [facility] DATE CREATED AUTHOR AUTHOR'S ORGANIZ ATION 12/29/2020 [facility] DATE CREATED AUTHOR AUTHOR'S ORGANIZ ATION 04/14/2022 [facility] DATE CREATED AUTHOR AUTHOR'S ORGANIZ ATION 04/20/2022 [facility] DATE CREATED AUTHOR AUTHOR'S ORGANIZ ATION 08/11/2022 [facility] DATE CREATED AUTHOR AUTHOR'S ORGANIZ ATION 11/29/2022 [facility] DATE CREATED AUTHOR AUTHOR'S ORGANIZ ATION 12/27/2022 [facility] DATE CREATED AUTHOR AUTHOR'S ORGANIZ ATION 05/02/2023 [facility] DATE CREATED AUTHOR AUTHOR'S ORGANIZ ATION 08/12/2023 [facility] EPIC DATE CREATED AUTHOR AUTHOR'S ORGANIZ ATION 09/07/2023 [facility] Reason for Visit (unrecogniz ed section and content) Status Reason Specialty Diagnoses / Procedures Referre d By Contact Referred To Contact Closed EEG Diagnoses Generalized idiopathic epilepsy and epileptic syndromes, not intractable, without status epilepticus Procedures EEG 16+ CHANNEL TELEMTERY 24HR Spike Garcia MD [address] [facility] [address] [place] [address] Mloz Eeg [address] [place] [address] Status Reason Specialty Diagnoses / Procedures Referre d By Contact Referred To Contact Closed Radiology Diagnoses Generalized idiopathic epilepsy and epileptic syndromes, not intractable, without status epilepticus Procedures MRI-BRAIN WO & W CONTRAST Spike Garcia MD [address] [facility] [address] [place] [address] Mloz Mri [address] [place] [address] Reason Comments Seizures Seizure like activit y [...] or prosecute any alcohol or drug abuse patient.[facility] the event this information is protected by the Federal Confidentiality of Alcohol and Drug Abuse Patient Records regulations: The Federal rules restrict any use of the information to criminally investigate or prosecute any alcohol or drug abuse patient.[facility] HealthcareIn the event this information is protected by the Federal Confidentiality of Alcohol and Drug Abuse Patient Records regulations: The Federal rules restrict any use of the information to criminally investigate or prosecute any alcohol or drug abuse patient.[facility] Care Teams (unrecognized sec tion and content) Table Keeper Relationship Specialty Start Date End Date Koffi Uriarte MD PCP - General Family Practice 08/17/16 Table Keeper Relationship Specialty Start Date End Date Koffi Uriarte MD PCP - General Family Practice 08/17/16 Table Keeper Relationship Specialty Start [place] [address] [place] [address] PCP - General 08/14/20 [place] [address] [place] [address] PCP - MMO ACO PCP 02/16/23 Team Status: Active Member Role Status Dates Norma Houser APRN Primary Care Provider Active Team Status: Inactive Member Role Status Dates Yusra Whitehead APRN Attending Provider Active Start: November 09, 2023 End: November 09, 2023 Norma Houser APRN Primary Care Provider Active Start: November 09, 2023 End: November 09, 2023 Goals (unrecognized section and content) Goals may be documented in a n alternate section FOR RECORDS PERTAINING TO PATIENTS WHO ARE [...] BE BASED ON THE PRIMARY CLINICAL RECORDS. [facility]. provides no warranty or guarantee of the accuracy or completeness of information in this document.
[2023-11-17 21:49] LABS: Basophils Percent Auto 0.4 % (0.2-2.0); Hematocrit 35.2 % (36.0-48.0); Hemoglobin 11.4 g/dL (12.0-16.0); Immature Granulocytes Abs Auto 0.01 10^3/uL (0.00-0.03); Immature Granulocytes Pct Auto 0.1 % (0.0-0.5); Lymphocytes Absolute Auto 2.8 10^3/uL (1.2-3.8); Mean Corpuscular HGB Conc 32.4 g/dL (29.9-35.2); Mean Corpuscular Hemoglobin 28.8 pg (26.7-34.0); Mean Corpuscular Volume 88.9 fL (81.0-99.0); Mean Platelet Volume 9.3 fL (9.5-13.5); Monocytes Absolute Auto 0.5 10^3/uL (0.3-0.8); Monocytes Percent Auto 6.7 % (1.7-12.0); Neutrophils Absolute Auto 4.6 10^3/uL (1.4-6.5); Neutrophils Percent Auto 57.8 % (43.0-75.0); Platelet Count 248 10^3/uL (150-450); Red Blood Count 3.96 10^6/uL (4.20-5.40); Red Cell Distribution Width 13.3 % (11.0-15.0); White Blood Count 7.9 10^3/uL (4.0-11.0)
[2023-11-17 21:58] LABS: Anion Gap 12.4; Calcium 9.4 mg/dL (8.5-10.1); Carbon Dioxide 26.8 mmol/L (21.0-32.0); Chloride 105 mmol/L (98-107); Estimated GFR (African America >60 (>=60); Estimated GFR (Non-African Ame >60 (>=60); Glucose 97 mg/dL (74-106); Potassium 4.2 mmol/L (3.5-5.1); Sodium 140 mmol/L (136-145)
== END 2023-11-17 22:39 | disposition home or self-care (01) ==
PROVIDERS: Emergency Provider Emergency Medicine; PCP Nurse Practitioner
DX: I49.3 Ventricular premature depolarization (principal); Z79.899 Other long term (current) drug therapy
CPT/HCPCS: 36415; 80048; 83735; 85025; 93005; 99284

== ENCOUNTER 2023-11-19 18:36 | Emergency (ER) | payer OTHER, SELFPAY ==
[2023-11-19] VITALS (14 sets, daily range): BP systolic 130–177; BP diastolic 81–94; PULSE 60–68; TEMP 36.8; O2SAT 97–100; BMI 28.1
--- OUTSIDE RECORDS SUMMARY | 2023-11-19 19:00 | XMS_ITS | CCD ---
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 Koffi Rosas Primary Care Dario Uriarte, Dr. Koffi Rosas Attending Dario Uriarte, Dr. Koffi Rosas Referring Koffi Oquendo MD Primary Care Provider Koffi Uriarte MD Unavailable [phone] NEDRA CALDERON Attending Unavailable KOFFI URIARTE Primary [...] Medication Allergies] Propensity to adverse reactions (disorder) [facility] Repository Medications Current Medications Medication Drug Class(es) [...] Vaginal, BID, 70 gram, Refill(s) 0, GIANT TUSCARORA #0220 Start Date: 06/09/19 Stop Date: 06/14/19 Status: Ordered Comment on above: Take 1 tablet by jolie twice daily. for vaginosis. Do not drink alcohol while taking this medication Orsythia 0.1-20 MG-MCG Oral Tablet (3 sources) Start: 10-12-2015 take 1 tablet by mouth once daily Orsythia 0.1-20 MG-MCG Oral Tablet TAKE 1 TABLET DAILY. Quantity: 1 Refills: 3 Ordered: 25-May-2019 Koffi rUiarte MD Start : 12-Oct-2015 Active sertraline 50 [...] 10-02-2022 10-02-2022 Episodic Unclassified (1 source) R07.9 93377/8 Onset: 05-04-2017 Unclassified (5 sources) Patient encounter status; Translations: [Encounter for audiology evaluation] NEGATED: Highlighted row has not occurred!Residual codes; unclassified (17 sources) Disease Episodic Results Test Name Value Interpretation Reference Range Facility [facility] 08-04-2023 L Specimen: [id number] Received: 08/04/23 Status: LAZARA Lyn Num: [id number] Spec Type: Surgical Subm Dr: Willis Chen Tissues: A Placenta - 3rd Trimester (Greater than 28 weeks) (PLACENTA) Procedures: HE/3, Gross/Micro L5 Age/ Patient Sex Location Account Attending Physician CantuPrincess hughes 27/F [place]E[facility] [id number] Willis Chen SPEC NUM: [id number] RECD: 08/04/23 STATUS: LAZARA LYN NUM: [id number] JOSE: 08/04/[address]: Willis Chen ENTERED: 08/04/23 [facility] DR: Giselle,Lab SPEC TYPE: Surgical DEPT: ROSS [...] parenchyma up to 3.1 cm in thickness. 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 Assembler sections are submitted in 3 cassettes as follows: A1 - membranes, umbilical cord, and decidua basalis A2 - Central placenta full-thickness A3 - Peripheral placenta, full-thickness ---- Specimen: [id number] Received: 08/04/23 Status: LAZARA Lyn Num: [id number] Spec Type: Surgical Subm Dr: Willis Chen Tissues: A Placenta - 3rd Trimester (Greater than 28 weeks) (PLACENTA) Procedures: HE/Tru, Gross/Micro L5 ---- Patient: Princess Cantu [id number] (Continued) ---- Specimen: [id number] Received: 08/04/23 (Continued) Signed (signature on file) Juliet Sykes MD 08/08/232229 ---- Specimen: [id number] Received: 08/04/23 Status: LAZARA Lyn Num: [id number] Spec Type: Surgical Subm Dr: Willis Chen Tissues: A Placenta - 3rd Trimester (Greater than 28 weeks) (PLACENTA) Procedures: DELMY/3, Gross/Micro L5 ---- Patient: Princess Cantu [id number] (Continued) ---- Specimen: [id number] Received: 08/04/23 (Continued) CPT Codes 86676 ---- ---- Specimen: [id number] Received: 08/04/23 Status: LAZARA Lyn Num: [id number] Spec Type: Surgical Subm Dr: Willis Chen Tissues: A Placenta - 3rd Trimester (Greater than 28 weeks) (PLACENTA) Procedures: DELMYJesica/Danitza L5 ---- Patient: Princess Cantu [id number] (Continued) ---- Signed (signature on file) Juliet Sykes MD 08/08/23 2230 [facility] DHEA SERUMon 11-20-2022 Dehydroepiandrosterone (DHEA) 656 ng/dL Normal 31-701 [facility] Comment on above: Performed By: #### D LAMAR. #### [facility] [address] [place] [address] Dr. Vish Brown ANTI-MULLERIAN HORMONEon Anti-Mullerian Hormone (AMH) 4.47 ng/mL Normal [facility] Comment on above: Result Comment: For assays employing antibodies, the possibility exists for interference by heterophile antibodies in the samples.1 1.Favio Campos Interferences in Immunoassays - still a threat. Clin. Chem. 2000; 46: 7078-0327. This test was developed and its performance characteristics determined by [employer]. It has not been cleared or approved by the Food and Drug Administration. Reference Range: Females 26 - 30y: 1.03 - 11.10 Median 4.20 AMH concentrations of >= 1.06 ng/mL is correlated with a better response to ovarian stimulation, produced more retrievable oocytes and higher odds of live according to Gabi et al. Fertility and Sterility. 2010: 94:0436-1698. The current AMH test method correlates with [...] AMH-secreting ovarian tumor. Performed By: #### L [facility] #### [facility] [address] [place] [address] Dr. Vish Brown DHEA-SULFATEon 11-17-2022 DHEA-Sulfate 449.0 ug/dL Critically high 84.8-378.0 [facility] Comment on above: Performed By: #### L BCL #### [facility] [address] [place] [address] Dr. Vish Brown ESTRADIOLon 11-17-2022 Estradiol 34.3 pg/mL Normal [facility] Comment on above: Result Comment: Adul t Female: Follicular phase 12.5 - 166.0 Ovulation phase 85.8 - 498.0 Luteal phase 43.8 - 211.0 Postmenopausal <6.0 - 54.7 1st trimester 215.0 - >4300.0 Ele ECLIA methodology Performed By: #### E STRACRISTIAN #### [facility] [address] [place] [address] Dr. Vish Brown FSHon 11-17-2022 FSH 6.1 mIU/mL Normal [facility] Comment on above: Result Comment: Adul t Female: Follicular phase 3.5 - 12.5 Ovulation phase 4.7 - 21.5 Luteal phase 1.7 - 7.7 Postmenopausal 25.8 - 134.8 Performed By: #### L [facility] #### [facility] [address] [place] [address] Dr. Vish Brown LUTEINIZING HORMONE (LH)on 0 11-17-2022 LH 4.5 mIU/mL Normal [facility] Comment on above: Result Comment: Adul t Female: Follicular phase 2.4 - 12.6 Ovulation phase 14.0 - 95.6 Luteal phase 1.0 - 11.4 Postmenopausal 7.7 - 58.5 Performed By: #### L BRUNA #### [facility] [address] [place] [address] Dr. Vish Brown PROGESTERONEon 11-17-2022 Progesterone 0.8 ng/mL Normal [facility] Comment on above: Result Comment: Foll icular phase 0.1 - 0.9 Luteal phase 1.8 - 23.9 Ovulation phase 0.1 - 12.0 First trimester 11.0 - 44.3 Second trimester 25.4 - 83.3 Third trimester 58.7 - 214.0 Postmenopausal 0.0 - 0.1 Performed By: #### P TASNEEM #### [facility] [address] [place] [address] Dr. Vish Brown CBC AUTO DIFFon 11-16-2022 BASO # 0.0 103/ul Normal 0.0-0.1 [facility] Comment on above: Performed By: #### L BRUNA #### [facility] [address] [place] [address] Dr. Vish Brown Basophils/100 WBC (Bld) 0.5 % Normal 0.2-2.0 [facility] Comment on above: Performed By: #### L BRUNA #### [facility] [address] [place] [address] Dr. Vish Brown EO # 0.3 103/ul Normal 0.0-0.7 [facility] Comment on above: Performed By: #### L BRUNAH #### [facility] [address] [place] [address] Dr. Vish Brown Eosinophils/100 WBC (Bld) 4.0 % Normal 0.9-7.0 [facility] Comment on above: Performed By: #### L BRUNAH #### [facility] [address] [place] [address] Dr. Vish Brown Erythrocyte distribution width (RBC) [Ratio] 12.0 % Normal 11.0-15.0 [facility] Comment on above: Performed By: #### L BRUNAH #### [facility] [address] [place] [address] Dr. Vish Brown Hematocrit (Bld) [Volume fraction] 39.1 % Normal 36.0-48.0 [facility] Comment on above: Performed By: #### L BCLH #### [facility] [address] [place] [address] Dr. Vish Brown Hemoglobin (Bld) [Mass/Vol] 13.0 g/dL Normal 12.0-16.0 [facility] Comment on above: Performed By: #### L BCLH #### [facility] [address] [address] [address] Vish Brown IG # 0.02 10e3/ul Normal 0.00-0.03 [facility] Comment on above: Performed By: #### L BCLH #### [facility] [address] [place] [address] Dr. Vish Brown IG % 0.3 % Normal 0.0-0.5 [facility] Comment on above: Performed By: #### L BCLH #### [facility] [address] [place] [address] Dr. Vish Brown LYMPH # 2.5 103/ul Normal 1.2-3.8 [facility] Comment on above: Performed By: #### L BCLH #### [facility] [address] [place] [address] Dr. Vish Brown Lymphocytes/100 WBC (Bld) 32.4 % Normal 20.5-60.0 [facility] Comment on above: Performed By: #### L BCLH #### [facility] [address] [place] [address] Dr. Vish Brown MANUAL DIFF REQ NO Normal [facility] Comment on above: Performed By: #### L BCLH #### [facility] [address] [place] [address] Dr. Vish Brown MCH (RBC) [Entitic mass] 29.9 pg Normal 26.7-34.0 [facility] Comment on above: Performed By: #### L BCLH #### [facility] [address] [place] [address] Dr. Vish Brown MCHC (RBC) [Mass/Vol] 33.2 g/dL Normal 29.9-35.2 [facility] Comment on above: Performed By: #### L BCLH #### [facility] [address] [place] [address] Dr. Vish Brown MCV (RBC) [Entitic vol] 89.9 fL Normal 81.0-99.0 [facility] Comment on above: Performed By: #### L BCLH #### [facility] [address] [place] [address] Dr. Vish Brown MONO # 0.6 103/ul Normal 0.3-0.8 [facility] Comment on above: Performed By: #### L BCLH #### [facility] [address] [place] [address] Dr. Vish Brown Monocytes/100 WBC (Bld) 7.4 % Normal 1.7-12.0 [facility] Comment on above: Performed By: #### L BCLH #### [facility] [address] [place] [address] Dr. Vish Brown NEUT # 4.3 103/ul Normal 1.4-6.5 [facility] Comment on above: Performed By: #### L BCLH #### [facility] [address] [place] [address] Dr. Vish Borwn Neutrophils/100 WBC (Bld) 55.4 % Normal 43.0-75.0 [facility] Comment on above: Performed By: #### L BCLH #### [facility] [address] [place] [address] Dr. Vish Brown Platelet mean volume (Bld) [Entitic vol] 9.0 fL Critically low 9.5-13.5 [facility] Comment on above: Performed By: #### L BCLH #### [facility] [address] [place] [address] Dr. Vish Brown PLT 277 103/ul Normal 150-450 [facility] Comment on above: Performed By: #### L BCLH #### [facility] [address] [place] [address] Dr. Vish Brown RBC 4.35 106/ul Normal 4.20-5.40 [facility] Comment on above: Performed By: #### L BCLH #### [facility] [address] [place] [address] Dr. Vish Brown WBC 7.7 103/ul Normal 4.0-11.0 [facility] Comment on above: Performed By: #### L BCLH #### [facility] [address] [place] [address] Dr. Vish Brown FREE T4on 11-16-2022 Free T4 [Mass/Vol] 1.08 ng/dL Normal 0.76-1.46 [facility] Comment on above: Performed By: #### F T4 #### [facility] [address] [place] [address] Dr. Vish Brown GLYCOHEMOGLOBIN A1Con 2022 ADA RECOMMENDATION SEE BELOW Normal [facility] Comment on above: Result Comment: ADA RECOMMENDED LIMIT 4.0 - 6.0 ADA THERAPEUTIC TARGET < 7.0 ACTION SUGGESTED > 7.0 Performed By: #### A 1C #### [facility] [address] [place] [address] Dr. Vish Brown Glucose [Mass/Vol] 94 mg/dL Normal [facility] Comment on above: Performed By: #### A 1C #### [facility] [address] [place] [address] Dr. Vish Brown HbA1c (Bld) [Mass fraction] 4.9 % Normal 4.5-6.2 [facility] Comment on above: Performed By: #### A 1C #### [facility] [address] [place] [address] Dr. Vish Brown PREG QUANT HCGon 11-16-2022 HCG QUANT <1 Normal [facility] Comment on above: Performed By: #### P REGQNT, TSH #### [facility] [address] [place] [address] Dr. Vish Brown HCG RANGE SEE BELOW Normal [facility] Comment on above: Result Comment: 5-50 0.2-1 WEEK 50-500 1-2 WEEKS 100-5,000 2-3 WEEKS 500-10,000 3-4 WEEKS 1,000-50,000 4-5 WEEKS 10,000-100,000 5-6 WEEKS 15,000-200,000 6-8 WEEKS 10,000-100,000 2-3 MONTHS Performed By: #### P REGQNT, TSH #### [facility] [address] [place], [place] [address] Dr. Vish Brown TSHon 11-16-2022 TSH 2.030 uIU/mL Normal 0.358-3.740 [facility] Comment on above: Performed By: #### P REGQNT, TSH #### [facility] [address] [place], [place] [address] Dr. Vish Brown 19-49 Yearson 07-31-2022 19-49 [...] Screening.on 023 Adult depression screening assessment No [employer] Phone: Fall risk assessment a) No falls within the last year [employer] Phone: Tobacco use status CPHS b) No M [employer] Phone: B-HCG SerPl-aCncon 2 HCG.beta subunit Qn m[IU]/mL Normal <5.0 [facility] Comment on above: Order Comment: Speci men Type: BLOOD SPECIMENOrdering Facility: [facility] Address: [address] [place] [address] Result Comment: Soledad kyle Performed By: #### G CCT #### [place] [address] BACTERIAL VAGINOSIS AMPLIFIC ATIONon 04-16-2022 Lactobacillus crispatus+gasseri+jense james + Gardnerella vaginalis + Atopobium vaginae rRNA HUMERA+probe Ql (Vag fld) Negative Normal Negative for bacterial vaginosis [facility] Comment on above: Order Comment: Speci men Type: SWAB Ordering Facility: [facility] Address: [address] [place] [address] Performed By: #### C VTV, BVAMP #### [facility] CLIA [id number] [address] [place] [address] [place] C. trachomatis+N. gonorrhoea e DNA HUMERA+probe Ql (Unsp spec)on 04-16-2022 C. trachomatis DNA HUMERA+probe Ql (Unsp spec) Negative Normal Negative for Chlamydia trachomatis by amplificaton [facility] Comment on above: Order Comment: Speci men Type: SWAB Ordering Facility[facility] Address: [address] [place] [address] Performed By: #### C VTV, BVAMP #### [facility] CLIA [id number] [address] [place] [address] [place] N. gonorrhoeae DNA HUMERA+probe Ql (Unsp spec) Negative Normal Negative for Neisseria gonorrhoeae by amplification [facility] Comment on above: Order Comment: Speci men Type: SWAB [facility]ing [facility] Address: [address] [place] [address] Performed By: #### C VTV, BVAMP #### [facility] CLIA [id number] [address] [place] [address] [place] MITCH / TRICHOMONAS AMPLIF ICATIONon 04-16-2022 MITCH / TRICHOMONAS AMPLIFICATION MITCH SPECIES GROUP RNA: Negative for Mitch species MITCH GLABRATA RNA: Negative for Mitch glabrata TRICH VAG AMPLIFICATION RNA: Negative for Trichomonas vaginalis by amplification Normal [facility] Comment on above: Performed By: #### C VTV, BVAMP #### [facility] CLIA [id number] [address] [place] [address] STATES OF [facility] CNCOon 04-16-2022 CNCO Letter Text Letter Text Normal [facility] CNOVon 04-16-2022 CNOV Office Visit (OBGA ) PRINCESS CANTU ([id number]) 1995 F Date Time Provider Department 04/16/22 8:00 AM BRENDAN BLANKENSHIP [facility] During your visit today, we [...] History Social History Narrative Single No 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 I, Brendan Blankenship, have reviewed this information as documented for accuracy and performed all elements of history taking, and edited the record as necessary. 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 #:[id number] BACTERIAL VAGINOSIS AMPLIFICATION [SQBVAMP] Order #: [id number]. #:[id number] GC/CHLAMYDIA DNA DET [SQGCCAMP] Order #: [id number]. #:[id number] SYPHILIS TOTAL W/REFLEX [SQSYPHTX] Order #: [id number] FUTURE HIV 1 2 COMBO(AG/AB),WITH REFLEX TO DIFFERENTIATION [SQHIV12] Order #: [id number] FUTURE HEP C AB IA W/CONF SCRN [MCWEWE4I] Order #: [id number] FUTURE HEP B SURF AG SCRN [SQHBSAG] Order #: [id number] FUTURE Prescriptions as of 04/16/2022 - lamoTRIgine [...] Status:Closed by BRENDAN BLANKENSHIP on 04/16/22 Normal [facility] HBV surface Ab IA Ql (S)on 0 04-16-2022 HBV surface Ag Ql (S) Negative Normal Negative [facility] Comment on above: Order Comment: Speci men Type: BLOOD SPECIMENOrdering Facility: [facility] Address: [address] [place] [id number] Performed By: #### G CCT #### [address] [address] HCV Ab Ser Qlon 04-16-2022 HCV Ab Ql (S) Negative Normal Negative [facility] Comment on above: Order Comment: Speci men Type: BLOOD SPECIMEN [facility] Address: [address] [place] [address] Result Comment: The result suggests no evidence of active infection with Hepatitis C virus. Should recent infection be suspected, repeat testing may be considered 4-6 weeks after this draw. Performed By: #### 1 6128-1 #### [facility] CLIA [id number] [address] [place] [address] [id number] [place] [address] OF [facility] HIV 1+2 Ab IA Qlon 2 HIV 1 and 2 Ab IA.rapid Nom Normal [facility] Comment on above: Order Comment: Speci men Type: BLOOD SPECIMENOrdering Facility: [facility] Address: [address] [place] [address] Result Comment: Test not indicated. Performed By: #### G CCT #### [place] [phone] HIV 1+2 Ab+HIV1 p24 Ag IA Ql Non-Reactive Normal Nonreactive [facility] Comment on above: Order Comment: Speci men Type: BLOOD SPECIMENOrdering Facility: [facility] Address: [address] [place] [address] Performed By: #### G CCT #### [place] [phone] HIVINT Normal [facility] Comment on above: Order Comment: Speci men Type: BLOOD SPECIMENOrdering Facility: [facility] Address: [address] [place] [address] Result Comment: No e vidence of HIV-1 or HIV-2 infection. Should recent infection be suspected, repeat testing may be considered 2-3 weeks after this draw. [place] Rev. Code 3701.243(E): This information has been [...] diagnoses. Performed By: #### G CCT #### [place] [phone] Reagin and Treponema pallidu m IgG and IgM [Interp]on 04-16-2022 SYPHILIS INTERPRETATION Cannot exclude r ecent Treponemal infection if specimen collected within 7-10 days after appearance of suspect lesions or 2-3 weeks after an exposure. Clinical correlation is required. Normal [facility] Comment on above: Order Comment: Speci men Type: BLOOD SPECIMENOrdering Facility: [facility] Address: [address] [place] [address] Performed By: #### G CCT #### [place] [phone] T. pallidum IgG+IgM IA Ql (S) Non-Reactive Normal Nonreactive [facility] Comment on above: Order Comment: Speci men Type: BLOOD SPECIMENOrdering Facility: [facility] Address: [address] [place] [address] Performed By: #### G CCT #### [place] [id number] Coding Summary.on 03-27-2022 Coding Summary. [id number] Gh 0bWw+PGhlYWQ+NX4WCJRkM 01aeSCrhV9WC5aUOC0CDUQ TAFHJPO3EPR6fvVO4TXjhP 2VybiAv BvhibRWiEH89ZMk8GYH4nV suFOtgiN8kvDZkK3w1MlAl OD62uT12QTivXIZnVaE9Qg ZpbjsgbWFy M1oxJpOvpKRtVss+PHRhYm xlIHdpZHRoPScxMDAlJyBz vLriPU8ePy3iXZCwESXgyD xhcHNlOiBj d7jzTHEnBPcsXP2oqTajH7 YukJS7ZMUmt0y8Cc88jXH+ GCWtCFE9fAweNRsxn961It Trf7phQPJ9 iLPuIIneGLT7L01ap4Y0NX OlBCGkOLC9dLH0yR7koXlc kfvrU6PhmJGhXwN6AOI7eD FwdQ2lwZis fksoyC3yEwo+Z36YUJ9MLQ ELQW4ATbi0C7JyUywkvUN+ VJ30SRZpVG48pNSrfHFko8 twqIj4SmIh OEHiIOV3cPqiVHsok0FaFX KdJ20gxDBlm0R1BREdzBqn yAEiLmQfvIY6qV1sJIdljr dsg6idfich Xcqju2vtyp15kA74Q03jNW ovYQOcRKJ8ZFJsYPYhwSww ar7vbK2dMk6+RApkp9drx3 cyjTy9FiTg HKLmtwOrhAswLNS1r2BhIv 47J9EojSjyx7MtDut6yu44 eMZud3F2pNM6ARakLJRsxE 3nENszEvS2 RBCqMsMehB22bLIdCGvtPl 1xsSwoxUclNJ5jHELdgwez SLUwnS2nXCKdyGCgbUxbJY 4wNTBpbjtm w725AlJeHBR8LKDupOOdU4 CjcD4aIqWmRTWhQUXsX8Rh fUPaIJvmG124YVtzLaR1ED JaaaOrY0We DSOptZqsPjN4e8H1Ju9Io0 AbupwtUUR5XLmfVJI0XsI9 JySuHpC9S8BmRvh2TKDiwM miSO0sM6Wy MWEsyvlhxwovvUN3LAFdZJ QcoO61vBGdQNhbSs6ux0J3 a005QQUmLJWqqD02Rj3kgX ogMTBwdCBU wJ6gnwufv9pxsngfStMqFG VfRTu4GBe4OVKmtTmtCfYo NED9AnM2ESO3pGXshP1psO quthiwqT3j Oyc+I62ggA8fXCY8FQL9qq rvMOUhsfZhOH84DW82T0Qk PjwvdGFibGU+PGRpdiBzdH myMU3lVxWw x8ilb3SyOKuiU0KvXLKeXN hnBuy7HFOuIOF0oUF3jG9q NBErYOyjb7Z9cIR6R1Vlga Wwto3aj9wn SVXmGFsjB87jnRYti9M4WX QqyJW8YKLtkLhoCkCncK82 Oyc+MYCwoNspz8PnDqscq8 gbc0lfpJo2 UkPfSVBlamHsyVxxSGD9f7 LlMo91J98qDEjpRESkFKXa GPSfSVFzdYijsc6lxE9oIv 8+PGNvbCB3 fNC5kD0gERYoUdM8BIojI2 04McNadAWiFrmfk6osb3mv zDs3DvVcLPRlzqTpwRfnQF E6d1RiGk72 F70lLOufSPEdUEIjSNBaFB UvbXyiub8phZ5eUc4+PC9j z3lfuz60rZ01fPE+PHRkIH D2vIfvBCnr BTBcgE5uNDetEqP9YULhDq BhpY12qXUwYCsbNj0zpLiy cMjgGU6cDDOvnqjmb091Qr Wxd2aaHIVb mMMfZIbtFRP4L74bj1K4YC PzJSZqGRL9oGX8tV8xcBni bjogbGVmdDsgdmVydGljYW kfIVjiE031 IHRvcDsnPlBhdGllbnQgTm XhKLo4B5CoSwl8MWLphFkc DX8keWYcKHesHr2ziThtwD dhOE7bOKVd fjqgm651RxCym0clDAEypS OyBEfsOHP9B76uq9I1SPDt SXVgRRR7mFZ2fP5ljShlmn ogbGVmdDsg dqOczTdsSPzjBSnfU972OD RvcDsnPkJpcnRoIERhdGU6 AZ56AK05mAMek0M1iIS0W6 BhZGRpbmct rcopdQU6NRGrXLFgpC46Lw 3ujDmlXp2eVAZrAMK5FPGx hXOhK4SvyT9kSnKkMNUyZT TeU2HgiVIc KXizI986IDgyMrF4DSFvil WsB0PiZFSbmRxwOwS3p7C9 Rr8NL2L5GU31SS00iSEwq4 L8vLS9G1Ot SCKmbrelktqawWW3RVBiDI TzzF11Py2szCjdPi9kZNLt ESX4ZSIlcWRtO0DmsA7wCf AjMDAwMDAw S8MfrPMbQUyuX228RVohJg W9AFHpczBeK9KeLOXzpAnl IuN4h9N2Ts8HYTk3OD52CF 15fFQwn7X8 vYN7P0EiUTEbymeinxbjdX F3APCpXIEtaO63Kb1oqZbz Ye9hVUYwVRD1NZTkhAPxT6 NaxD6yTkPl DEVeZWOqI7JupLOhGEwgC0 94SQmhCdL5JIPmjaVoG0Je FENzqLrvVjX6w1V4Hu6ODC RiBV78MKT6 cYQ9FR58FR85X9KnKftfsS FibGU+PHRhYmxlIHdpZHRo STgnQVFlFxEuyYziXJ3gMl 9yZGVyLWNv eHkxtWDeCtBqu2tvTMIdBE yoXS0cnSmbS6AasYE9VKXa x3z1Tp94S02kO1FqjQJ+PG ArqUY7kXR3 uL9eVkPoSiY6RSwxF710Wt YnsMJxWrgke2pjn3qjhDk7 NyO5DTZkxbEvlUewUTH3h6 YzLm59P21l IHdpZHRoPSIxNSUiIHZhbG xbff4tzC7fRu7+PGNvbCB3 sLV4rD4pZiGpQoS4UTmtD6 49InRvcCIv Kzlio1per1mpgWf9SsXoBM DxtcSboJiqXFD5j4FzFg38 U6MzxSyxs0GxJul4nk41gL Chc5T7zND8 N8TbVLOftvlfdWKtlRfmLU 3fBYBoyeisETSwoU9xKJAw T1r3ZuPhBhV3MHtqC5Gsrz M3ZZRabBIz FEjtNOJ1K96hj8C3HDErBB CyFFL2gFO8iY0spTmuclhi bGVmdDsgdmVydGljYWwtYW euK387CLXx pEorZNGqkW5tUROwhSHmgE kiFG1cFVBeprotCtRRH1vn RV2EC5NMCTR3F6UtCrh3OJ MimXrbMX5u lCDgBIffCc3fgBrgvUswGV 4aJHSklztxSPUuoA5wEIZk sVFmiHzyDR5eYQKoidgpu4 40NnSoXWU7 NFTncZLfL9LgcK1rYlOyYL VnREQqT4UrwNYmHZgxR775 ZNnrGxA9UGDipiDyQ8RyVA FsaWduOiB0 z5T8Xh9iDn9uDn7zIJv5FT 15WV87qIEew0W6bGZ9Q4Sr GSBaqgnmdrwlySA5WNOxYC GxsO42gJMi RCwdJa2cp5I5q499KDSgCA YqsP65Ma2kwEduHMWtuENR nP3nsuvet3shqaamXmYgJS OyGTl2OIe9 RZRphRwdOaXnIYO8CnN4DY I6gVBevD3hdAudwpgioN1k Oyc+DtwiIHEckpX6U1AyZw j6YJVzkGub YR4yjAUgUEfdAh8mwSingZ jxVM8uNNTqkpefWSMoxO5m VRSpjLMwtBogAH5tMQDila kkl498CcJp LXC1NNAiiFOqZ3CbpX2bQa NjQZHiWGEuM4QihHNcJSfk U920CPbfAaQ9WLYcuwUvD6 FsLWFsaWdu MkP7p0H8Be4UDO9bdIO6O8 UcVnn7QZCewMrqDS8vyYBp KDyvSu2ckToekWxvWO0nTG BpbjtwYWRk dU0uZYCbpGEowKoqII9qIA Nfanplb335AbTyVXQ5GKQg lSEbG0KbcK2iOyVtAXGfOV QsJ4VfxFBr UXznE931XNabWwQ8FEQfpt GcL1YbTUCpyXzfBkX7e7Z5 Tv8KhZYzROXuAM04FT21LB 23W9PyEwfb dGFibGU+PHRhYmxlIHdpZH JnGYxqNFYxJxChgVwxUG7z Gz8uVBReMGKfaTfquZJhTh Dph5wcFXUz COmbYW6ywDlsH4VoiHE3SN Mej9l2Fp99R49dH8WcfOL+ MPVnuYT5dVJ8mJ3aQhLoCt Z8WHysV955 DlFswAInXmjgu5pef3ccfO l1IzQcLUYmexNfeIuoOVN6 n0LcAg80E14aXSzxAKNeBL IyMCUiIHZh tCsdht7vqQ8lXd0+PGNvbC C5iIS9mF0lKyXlUsR7EDfg F598ZgOfcWRoWhisG70tY5 JvdXA+PHRy Viw5WRDunMacYW6iiNZmQI ydZy1rODB0CrUaStSdGUax A0JsSXGnnuqkxxmsgWT8ZU HaKSAvxW33 Mz3qeCuwUd5uKCRoEGO3RI ZjhOZaN3NyfO8iEtHaCLNl AULdE1FnrAMjTDrxH402CB iaMoV7XYIx ihHwX5NpMTGmmZdlAqQ2t1 E1Go2PwJleeJLrRX6rHdDl KZt4G0SmBdf2LQDtmEjvUV 0ncGFkZGlu Ew6asSkkgOsoPE6qAFKrww ame756TcKab5rqQNOuuPKl IHqvTDZ5A86iw9Y1SGPmZN WmIXQ6fTH4 rF6hlLjvhniqvHAniPtevf FdeYokUAagFXhlO396NGVm nNdaDkBIDlu5X1XkWai4FZ BgnJebCR2d nUGtSIkkBt7avIepgYpuSZ 5cZFGtpmwmh100QuPgl6dg WZIxcECpNTwjJFE2W61lu3 H7COHmOYRh BCC4yTM8fF4jvFtpnbgydM VmdDsgdmVydGljYWwtYWxp T319NAWteVrdAz6YFdp8B7 DvKcw3XNJt yWnoBP6lqQWrGXasYt4vaP nycKpoIG7dARSwyefqg195 ElFff0kwHGFtqRMxBWqfTB G2T67xf5L4 PJYkKLVdTQZ7xAR4gE4gqJ lnbjogbGVmdDsgdmVydGlj QAntIKviL109VZAkpLuoRh BheWVyOjwv dGQ+UD82kr98N0OqHrzxAg z3GXJcVRW8gAN7pE0aBGEi LKofo6L9dNI1C4OqifJdyj 9eg3haEYAp ZTog (more content not included)... [facility] HCG.beta subunit Qn 1 m[IU]/mL Normal 1-3 [facility] Comment on above: Result Comment: GEST ATIONAL AGE HCG RANGE (mIU/mL) NON- <1-3 0.2-1 WEEKS 5-50 1-2 WEEKS 50-500 2-3 WEEKS 100-5,000 3-4 WEEKS 500-10,000 4-5 WEEKS 1,000-50,000 5-6 WEEKS 10,000-100,000 6-8 WEEKS 15,000-200,000 8-12 WEEKS 10,000-100,000 Performed By: #### 2 [id number] #### [facility] [address] [place] [address] CHEMISTRYOrdered By: SYSTEM SYSTEM on 03-24-2022 HCG.beta subunit Qn 1 m[IU]/mL Normal 1 - 3 mIU/mL FTM C Remisol CNPNon 03-24-2022 CNPN Telephone ([facility]) PRINCESS CANTU ([id number]) 1995 F Date Time Provider Department 03/24/22 KAVITA SWEET [facility] During your visit today, we [...] other OV, cancel OCT new OB thanks Mayr Onofre, RN 03/24/2022 11:55 AM Signed VM left w req for RCTO Allergies As of Date: 03/24/2022 (No Known Allergies) Date Reviewed: 09/09/2021 Reviewed by: Brendan Blankenship PA-C - Fully Assessed Reason for Visit: Bleeding With [36356] Primary Visit Diagnosis:Bleeding in early [O20.9] Order(s):HCG QUANTITATIVE [SQHCGQT] Order #: [id number] FUTURE Prescriptions as of 03/24/2022 - metroNIDAZOLE [...] Encounter Status:Closed by BRENDAN SOUZA on 03/24/22 [facility] Consent for Treatmenton Consent for Treatment [id number]:[id number] [facility] Physician Orderon 03-24-2022 Physician Order [id number] 0CD:[id number] [facility] PRINCESS CANTU ([id number]) 1995 F Date Time Provider Department 03/19/22 [...] Status:Closed by MARY ONOFRE on 03/19/22 Normal [facility] Office Visit (Neuro-General) on 12-24-2021 Follow-up visit [...] was taken to [facility] in [place]. She had lab work and a CT [...] DAILY. Vitals Vital Signs Recorded: 24Dec2021 11:32AM Ceftvdatfgn06.1 F Heart Rate54 Hnjiyxrk341 Yuixrjdto50 Height5 ft 9 in Ovtkzy826 lb 1.6 oz BMI Taaxtcvfjg70.03 kg/m2 BSA Calculated2.11 Tobacco Useb) No Fall Screeninga) No falls within the last year O2 Zbmzflxqly777, RA Physical Exam Constitutional: General appearance: no [...] Dec 24 2021 11:37AM EST (Author) Normal [facility] Tobacco Screening.on 022 Fall risk assessment a) No falls within the last year MP-Neurolog y-Bullock SJW DO Work Phone: Tobacco use status [...] focal Signatures Electronically signed by : Koffi Uriatre MD; Nov 17 2021 1:34PM EST (Author) Normal [facility] Tobacco Screening.on 022 Adult depression screening assessment No MP-WSPC-Ramesh n [employer] Work Phone: Fall risk assessment a) No falls within the last year MP-WSPC-Ramesh augustina [employer] Work Phone: Tobacco use status CPHS b) No M P-WSPC-Ramesh n [employer] Work Phone: Bact Vag Amplificationon Bact Vag Amplification Positive Criticall y abnormal Negative for bacterial vaginosis [facility] Comment on above: Performed By: #### G CCT #### [facility] [address] [place], [place] [address] CNOVon 09-09-2021 CNOV Office Visit (OBGA ) PRINCESS CANTU ([id number]) 1995 F Date Time Provider Department 09/09/21 10:00 AM BRENDAN BLANKENSHIP [facility] During your visit today, we [...] History Social History Narrative Single No 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 Portions of this record were documented by the [employer]. I, Brendan Blankenship, have reviewed this information as documented for accuracy and performed all elements of history taking, and edited the record as necessary. 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 Normal [facility] Mitch Trich Amplon 022 Mitch glabrata RNA Negative Normal Negative [facility] Comment on above: Performed By: #### G CCT #### [facility] [address] [address] Mitch sp group RNA Negative Normal Negative [facility] Comment on above: Performed By: #### G CCT #### [facility] [address] [address] Trichomonas RNA Negative Normal [facility] Comment on above: Performed By: #### G CCT #### [facility] [address] [address] GC/Chlamydia Amplifon 2021 Chlamydia Amplif Negative Normal [facility] Comment on above: Performed By: #### G CCT #### [facility] [address] [address] GC Amplification Negative Normal [facility] Comment on above: Performed By: #### G CCT #### [address] [place] [address] GC/Chlam Amp Source Cervix Normal [facility] Comment on above: Performed By: #### G CCT #### [place] [address] Bact Vag Amplificationon Bact Vag Amplification Negative Normal Negat ko for bacterial vaginosis [facility] Comment on above: Performed By: #### C VTV, BVAMP #### [facility] CLIA [id number] [address] [place] [address] OF [facility] CNOVon 07-04-2021 CNOV Office Visit (OBGY ) CANTUPRINCESS HUGHES ([id number]) 1995 F [facility] Date Time Provider Department 07/04/21 4:00 PM GEORGIA DWYER PATRICIA During your visit today, we recorded the following information about you: Pulse Blood pressure Weight Height 74/minute 131/86 95.7 kg 1.727 m Last Period 06/07/21 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 APRN.SOFTWARE PACKAGER 07/04/2021 4:39 PM Signed Princess is a [...] Ectopic0 Multiple0 Live Births0 Comment: 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 Avoid scratching, scented pads/tampons/toilet papers, cranberry juice, bubble baths, and intercourse until symptoms are relieved. NO douching. If you shave, use a new razor at least twice monthly. 5) Follow up one year or sooner as needed eGorgia Dwyer APRN.JUSTINE Dwyer APRN.CNP 07/04/2021 4:08 PM Signed ACOG Screening Guidelines The following health screening schedule is recommended by the [employer] (ACOG). Some of these tests may be ordered or performed by your primary care doctor. Pap test screening The pap test loo (more content not included)... Normal [facility] Mitch Trich Amplon 12-17-2 021 Mitch glabrata RNA Negative Normal Negative [facility] Comment on above: Performed By: #### C VTV, BVAMP #### [facility] CLIA [id number] [address] [place] [address] [place] Mitch sp group RNA Negative Normal Negative [facility] Comment on above: Performed By: #### C VTV, BVAMP #### [facility] CLIA [id number] [address] [place] [address] [place] Trichomonas RNA Negative Normal [facility] Comment on above: Performed By: #### C VTV, BVAMP #### [facility] CLIA [id number] [address] [place] [address] [place] GC/Chlamydia Amplifon 2020 Chlamydia Amplif Negative Normal [facility] Comment on above: Performed By: #### G CCT #### [place] [address] GC Amplification Negative Normal [facility] Comment on above: Performed By: #### G CCT #### [place] [address] GC/Chlam Amp Source Cervix Normal [facility] Comment on above: Performed By: #### G CCT #### [place] [address] Tobacco Screening.on 021 Fall risk assessment a) No falls within the last year MP-Neurolog y-Eugene SJW DO Work Phone: Tobacco use status [facility] b) No M P-Neurolog y-Eugene [...] trachomatis and Neisseria gonorrhoeae testing on specific qkz-YZY-rxarufzk sample types (female urine samples) have been validated by [facility]. This laboratory is certified by CLIA to perform high complexity testing. Samples from all other sites are not validated for this method. N. gonorrhoeae rRNA HUMERA+probe Ql (Unsp spec) Negative Negative [employer] Work Phone: Comment on above: SOURCE: Urine The AP KELSIE Combo 2 assay is FDA-approved for Chlamydia trachomatis and Neisseria gonorrhoeae testing on female endocervical and vaginal swabs, ThinPrep liquid pap samples, male urine samples and urethral swabs. Performance characteristics for Chlamydia trachomatis and Neisseria gonorrhoeae testing on specific fju-SCW-jsegjnwr sample types (female urine samples) have been validated by [facility]. This laboratory is certified by CLIA to perform high complexity testing. Samples from all other sites are not validated for this method. TSHon 12-24-2020 TSH Qn 2.30 m[IU]/L Normal 0.44 - 3.98 [facility] Comment on above: Result Comment: TSH testing is performed using different testing methodology at [facility] than at other [facility]. Direct result comparisons should only be made within the same method. Performed By: #### T SH2 #### [facility] [address] [place] [address] TSH - Thyroid Stimulating Ho rmone, Serumon 12-24-2020 TSH Qn 2.30 m[IU]/L See Below [employer] Phone: Comment on above: Reference Range: 0.4 4 - 3.98 TSH testing is performed using different testing methodology at [facility] than at other [facility]. Direct result comparisons should only be made within the same method. Tobacco Screening.on 021 Fall risk assessment a) No falls within the last year x.ai-Ramesh [employer] Work Phone: Tobacco use status CPHS b) No M P-WSPC-Ramesh n [employer] Work Phone: CBCon 08-14-2020 Erythrocyte distribution width (RBC) [Ratio] 13.2 % Normal 11.5 - 14.5 [facility] Comment on above: Performed By: #### C BC #### [address] [address] Hematocrit (Bld) [Volume fraction] 39.5 % Normal 36.0 - 46.0 [facility] Comment on above: Performed By: #### C BC #### [address] [address] Hemoglobin (Bld) [Mass/Vol] 13.0 g/dL Normal 12.0 - 16.0 [facility] Comment on above: Performed By: #### C BC #### [address] [address] MCHC (RBC) [Mass/Vol] 32.9 g/dL Normal 32.0 - 36.0 [facility] [place] [place] Comment on above: Performed By: #### C BC #### [address] [address] MCV (RBC) [Entitic vol] 91 fL Normal 80 - 100 [facility] Comment on above: Performed By: #### C BC #### [address] [address] NUCLEATED RBC 0.0 /100 WBC Normal 0.0 - 0.0 [facility] Comment on above: Performed By: #### C BC #### [address] [address] Platelets (Bld) [#/Vol] 235 10*3/uL Normal 150 - 450 [facility] Comment on above: Performed By: #### C BC #### [address] [address] RBC 4.33 x10E12/L Normal 4.00 - 5.20 [facility] Comment on above: Performed By: #### C BC #### [address] [address] WBC (Bld) [#/Vol] 5.8 10*3/uL Normal 4.4 - 11.3 [facility] Comment on above: Performed By: #### C BC #### [address] [address] COMPREHENSIVE PANELon 2020 Albumin [Mass/Vol] 4.7 g/dL Normal 3.4 - 5.0 [facility] Comment on above: Performed By: #### C MP #### [address] [address] ALP [Catalytic activity/Vol] 53 U/L Normal 33 - 110 [facility] Comment on above: Performed By: #### C MP #### [address] [address] ALT [Catalytic activity/Vol] 41 U/L Normal 7 - 45 [facility] Comment on above: Result Comment: Desiree ents treated with Sulfasalazine may generate falsely decreased results for ALT. Performed By: #### C MP #### [address] [address] Anion gap [Moles/Vol] 10 mmol/L Normal 10 - 20 [facility] Comment on above: Performed By: #### C MP #### [address] [address] AST [Catalytic activity/Vol] 27 U/L Normal 9 - 39 [facility] Comment on above: Performed By: #### C MP #### [address] [address] Bilirubin [Mass/Vol] 0.6 mg/dL Normal 0.0 - 1.2 [facility] Comment on above: Performed By: #### C MP #### [address] [address] Calcium [Mass/Vol] 9.5 mg/dL Normal 8.6 - 10.3 [facility] Comment on above: Performed By: #### C MP #### [address] [address] Chloride [Moles/Vol] 105 mmol/L Normal 98 - 107 [facility] Comment on above: Performed By: #### C MP #### [address] [address] Creatinine [Mass/Vol] 0.93 mg/dL Normal 0.50 - 1.05 [facility] [place] [place] Comment on above: Performed By: #### C MP #### [address] [address] GFR- AM. >60 Normal >60 [facility] Comment on above: Result Comment: CALC ULATIONS OF ESTIMATED GFR ARE PERFORMED USING THE MDRD STUDY EQUATION FOR THE IDMS-TRACEABLE CREATININE METHODS. CLIN CHEM 2007;53:766-72 Performed By: #### C MP #### [address] [address] GFR-NON AM. >60 Normal >60 [facility] Comment on above: Performed By: #### C MP #### [address] [address] Glucose [Mass/Vol] 94 mg/dL Normal 74 - 99 [facility] Comment on above: Performed By: #### C MP #### [address] [address] HCO3 (Bld) [Moles/Vol] 28 mmol/L Normal 21 - 32 [facility] [place] [place] Comment on above: Performed By: #### C MP #### [address] [address] Potassium [Moles/Vol] 4.4 mmol/L Normal 3.5 - 5.3 [facility] Comment on above: Performed By: #### C MP #### [address] [address] Protein [Mass/Vol] 7.3 g/dL Normal 6.4 - 8.2 [facility] Comment on above: Performed By: #### C MP #### [address] [address] Sodium [Moles/Vol] 139 mmol/L Normal 136 - 145 [facility] Comment on above: Performed By: #### C MP #### [facility] [address] [facility] [place] [address] Urea nitrogen [Mass/Vol] 13 mg/dL Normal 6 - 23 [facility] Comment on above: Performed By: #### C MP #### [facility] [address] [place] [address] Hematologyon 08-14-2020 Hematocrit (Bld) [Volume fraction] 39.5 % See Below -Neurolog y-Bullock SJW DO Work Phone: Comment on above: Reference Range: 36. 0 - 46.0 Hemoglobin (Bld) [Mass/Vol] 13.0 g/dL See Below -Neurolog y-Bullock SJW DO Work Phone: Comment on above: Reference Range: 12. 0 - 16.0 MCV (RBC) [Entitic vol] 91 fL 80 - 100 M P-Neurolog -Bullock SJW DO Work Phone: Platelets (Bld) [#/Vol] 235 {x10E9/L} 150 - 450 -Neurolog y-Bullock SJW DO Work Phone: RBC (Bld) [#/Vol] 4.33 {x10E12/L} See Below -Neurolog y-Bullock SJW DO Work Phone: Comment on above: Reference Range: 4.0 0 - 5.20 WBC (Bld) [#/Vol] 5.8 {x10E9/L} 4.4 - 11.3 MP-N eurolog y-Bullock SJW DO Work Phone: WBC (Bld) [#/Vol] 0.0 {/100_WBC} 0.0 - 0.0 MP- Neurolog y-Bullock SJW DO Work Phone: LAMOTRIGINE- LAMICTALon 07-20 LAMOTRIGINE- LAMICTAL 6.4 ug/mL Normal 2.5 - 15.0 [facility] Comment on above: Performed By: #### L AMOT #### [facility] [address] [place] [address] Lamotrigine Level, Serumon 0 08-14-2020 Lamotrigine [Mass/Vol] 6.4 ug/mL 2.5 - 15.0 MP -Neurolog y-Bullock SJW DO Work Phone: Metabolic Panelon 08-14-2020 ALP [Catalytic activity/Vol] 53 U/L 33 - 110 MP-Neurolog y-Eugene SJW DO Work Phone: Anion gap [Moles/Vol] 10 mmol/L 10 - 20 MP- Neurolog y-Bullock SJW DO Work Phone: Bilirubin [Mass/Vol] 0.6 mg/dL 0.0 - 1.2 MP-N eurolog y-Eugene SJW DO Work Phone: Calcium [Mass/Vol] 9.5 mg/dL 8.6 - 10.3 MP-Jozef rolog y-Eugene SJW DO Work Phone: Chloride [Moles/Vol] 105 mmol/L 98 - 107 MP-N eurolog y-Bullock SJW DO Work Phone: CO2 [Moles/Vol] 28 mmol/L 21 - 32 MP-Neurol og y-Eugene SJW DO Work Phone: Creatinine [Mass/Vol] 0.93 mg/dL See Below MP- Neurolog y-Eugene SJW DO Work Phone: Comment on above: Reference Range: 0.5 0 - 1.05 Glucose [Mass/Vol] 94 mg/dL 74 - 99 MP-Jozef rolog y-Bullock SJW DO Work Phone: Potassium [Moles/Vol] 4.4 mmol/L 3.5 - 5.3 MP- Neurolog y-Bullock SJW DO Work Phone: Protein [Mass/Vol] 7.3 g/dL 6.4 - 8.2 [facility] DO Work Phone: Sodium [Moles/Vol] 139 mmol/L 136 - 145 [facility] DO Work Phone: Urea nitrogen [Mass/Vol] 13 mg/dL 6 - 23 [facility] DO Work Phone: Otheron 08-14-2020 Albumin BCP dye [Mass/Vol] 4.7 g/dL 3.4 - 5.0 [facility] DO Work Phone: ALT With P-5'-P [Catalytic activity/Vol] 41 U/L 7 - 45 [facility] DO Work Phone: Comment on above: Patients treated wit h Sulfasalazine may generate falsely decreased results for ALT. AST With P-5'-P [Catalytic activity/Vol] 27 U/L 9 - 39 [facility] DO Work Phone: Erythrocyte distribution width (RBC) [Ratio] 13.2 % See Below [facility] DO Work Phone: Comment on above: Reference Range: 11. 5 - 14.5 MCHC (RBC) [Mass/Vol] 32.9 g/dL See Below [facility] DO Work Phone: Comment on above: Reference Range: 32. 0 - 36.0 >60 >60 [facility] DO Work Phone: Comment on above: CALCULATIONS OF MICHAEL MATED GFR ARE PERFORMED USING THE MDRD STUDY EQUATION FOR THE IDMS-TRACEABLE CREATININE METHODS. CLIN CHEM 2007;53:766-72 MRI BRAIN W WO CONTRASTon There are no acute intracranial changes, no evidence of ischemia or hemorrhage. There are no regions of signal abnormality. There are no areas of abnormal enhancement after contrast administration. [place], [place] EXAMINATION: MRI BRA IN W WO [...] The calvarium and soft tissues are unremarkable. [place], [place], [place] Incoming Radiant Results From [employer] - 05/09/2020 3:02 PM EDT EXAMINATION: MRI [...] areas of abnormal enhancement after contrast administration. [place], [place] MRI BRAIN W WO CONTRAST EXAMINATION: [...] 05/09/20 Final result Normal [facility] CBC With Platelet and Differ entialon 04-19-2020 Basophils (Bld) [#/Vol] 0.1 10*3/uL Normal 0.0-0.2 [facility] Comment on above: Performed By: #### C BCWD #### [facility] [address] [place] [address] Basophils/100 WBC (Bld) 0.4 % Normal [facility] Comment on above: Performed By: #### C BCWD #### [facility] [address] [place] [address] Eosinophils (Bld) [#/Vol] 0.5 10*3/uL Normal 0.0-0.7 [facility] Comment on above: Performed By: #### C BCWD #### [facility] [address] [place] [address] Eosinophils/100 WBC (Bld) 4.2 % Normal [facility] Comment on above: Performed By: #### C BCWD #### [facility] [address] [place] [address] Erythrocyte distribution width (RBC) [Ratio] 12.5 % Normal 11.5-14.5 [facility] Comment on above: Performed By: #### C BCWD #### [facility] [address] [place] [address] Hematocrit (Bld) [Volume fraction] 39.4 % Normal 37.0-47.0 [facility] Comment on above: Performed By: #### C BCWD #### [facility] [address] [place] [address] Hemoglobin (Bld) [Mass/Vol] 13.3 g/dL Normal 12.0-16.0 [facility] Comment on above: Performed By: #### C BCWD #### [facility] [address] [place] [address] Lymphocytes (Bld) [#/Vol] 3.2 10*3/uL Normal 1.0-4.8 [facility] Comment on above: Performed By: #### C BCWD #### [facility] [address] [place] [address] Lymphocytes/100 WBC (Bld) 26.9 % Normal [facility] Comment on above: Performed By: #### C BCWD #### [facility] [address] [place] [address] MCH (RBC) [Entitic mass] 29.8 pg Normal 27.0-31.3 [facility] Comment on above: Performed By: #### C BCWD #### [facility] [address] [place] [address] MCHC (RBC) [Mass/Vol] 33.8 % Normal 33.0-37.0 [facility] Comment on above: Performed By: #### C BCWD #### [facility] [address] [place] [address] MCV (RBC) [Entitic vol] 88.4 fL Normal 82.0-100.0 [facility] Comment on above: Performed By: #### C BCWD #### [facility] [address] [place] [address] Monocytes (Bld) [#/Vol] 0.8 10*3/uL Normal 0.2-0.8 [facility] Comment on above: Performed By: #### C BCWD #### [facility] [address] [place] [address] Monocytes/100 WBC (Bld) 6.8 % Normal [facility] Comment on above: Performed By: #### C BCWD #### Eating [facility] [address] [place] [address] Neutrophils (Bld) [#/Vol] 7.3 10*3/uL Critically high 1.4-6.5 [facility] Comment on above: Performed By: #### C BCWD #### [facility] [address] [place] [address] Neutrophils/100 WBC (Bld) 61.7 % Normal [facility] Comment on above: Performed By: #### C BCWD #### [facility] [address] [place] [address] Platelets (Bld) [#/Vol] 314 10*3/uL Normal 130-400 [facility] Comment on above: Performed By: #### C BCWD #### [facility] [address] [place] [address] RBC (Bld) [#/Vol] 4.45 10*6/uL Normal 4.20-5.40 [facility] Comment on above: Performed By: #### C BCWD #### [facility] [address] [place] [address] WBC (Bld) [#/Vol] 11.9 10*3/uL Critically high 4.8-10.8 [facility] Comment on above: Performed By: #### C BCWD #### [facility] [address] [place] [address] CT HEAD WO CONTRASTon 2019 CT HEAD [...] De Jesus DO 04/19/20 Final result Normal [facility] Comprehensive Metabolic Pane crescencio 04-19-2020 Albumin [Mass/Vol] 4.9 g/dL Critically high 3.5-4.[address] [facility] Comment on above: Performed By: #### C MP #### [facility] [address] [place] [address] ALP [Catalytic activity/Vol] 40 U/L Normal 40-130 [facility] Comment on above: Performed By: #### C MP #### [facility] [address] [place] [address] ALT [Catalytic activity/Vol] 17 U/L Normal 0-33 [facility] Comment on above: Performed By: #### C MP #### [facility] [address] [place] [address] Anion gap [Moles/Vol] 14 mmol/L Normal 9-15 [facility] Comment on above: Performed By: #### C MP #### [facility] [address] [place] [address] AST [Catalytic activity/Vol] 17 U/L Normal 0-35 [facility] Comment on above: Performed By: #### C MP #### [facility] [address] [place] [address] Bilirubin [Mass/Vol] mg/dL Normal 0.2-0.7 [facility] Comment on above: Performed By: #### C MP #### [facility] [address] [place] [address] Calcium [Mass/Vol] 10.0 mg/dL Critically high 8.5-9.9 [facility] Comment on above: Performed By: #### C MP #### [facility] [address] [place] [address] Chloride [Moles/Vol] 101 mmol/L Normal 95-107 [facility] Comment on above: Performed By: #### C MP #### [facility] [address] [place] [address] CO2 [Moles/Vol] 24 mmol/L Normal 20-31 [facility] Comment on above: Performed By: #### C MP #### [facility] [address] [place] [address] Creatinine [Mass/Vol] 0.87 mg/dL Normal 0.50-0.90 [facility] Comment on above: Performed By: #### C MP #### [facility] [address] [place] [address] GFR/1.73 sq M predicted among blacks MDRD (S/P/Bld) [Vol rate/Area] mL/min/{1.73_m2} Normal >60 [facility] Comment on above: Result Comment: >60 mL/min/1.73m2 EGFR, calc. for ages 18 and older using the MDRD formula (not corrected for weight), is valid for stable renal function. Performed By: #### C MP #### [facility] [address] [place] [address] GFR/1.73 sq M.predicted MDRD (S/P/Bld) [Vol rate/Area] mL/min/{1.73_m2} Normal >60 [facility] Comment on above: Result Comment: >60 mL/min/1.73m2 EGFR, calc. for ages 18 and older using the MDRD formula (not corrected for weight), is valid for stable renal function. Performed By: #### C MP #### [facility] [address] [place] [address] Globulin (S) [Mass/Vol] 3.1 g/dL Normal 2.3-3.5 [facility] Comment on above: Performed By: #### C MP #### [facility] [address] [place] [address] Glucose [Mass/Vol] 94 mg/dL Normal 70-99 [facility] Comment on above: Performed By: #### C MP #### [facility] [address] [place] [address] Potassium [Moles/Vol] 3.9 mmol/L Normal 3.4-4.9 [facility] Comment on above: Performed By: #### C MP #### [facility] [address] [place] [address] Protein [Mass/Vol] 8.0 g/dL Normal 6.3-8.0 [facility] Comment on above: Performed By: #### C MP #### [facility] [address] [place] [address] Sodium [Moles/Vol] 139 mmol/L Normal 135-144 [facility] Comment on above: Performed By: #### C MP #### [facility] [address] [place] [address] Urea nitrogen [Mass/Vol] 12 mg/dL Normal 6-20 [facility] Comment on above: Performed By: #### C MP #### [facility] [address] [place] [address] Lactic Acidon 04-19-2020 Lactate [Moles/Vol] 1.8 mmol/L Normal 0.5-2.2 [facility] Comment on above: Performed By: #### L ACID #### [facility] [address] [place] [address] Prolactinon 04-19-2020 Prolactin 160.8 ng/mL Normal [facility] Comment on above: Result Comment: Defa ult Normal Ranges Female Male Non: 4.8-23.3 4.0-15.2 Performed By: #### P JAISON #### [facility] [address] [place] [address] Serum HCG Qualitativeon HCG.beta subunit Qn Negative Normal [facility] Comment on above: Performed By: #### S HCG #### [facility] [address] [place] [address] Urinalysis, reflex to cultur emily 04-19-2020 Urine Reflexed to Culture Not Indicated Normal [facility] Comment on above: Performed By: #### U AR #### [facility] [address] [place] [address] Bilirubin Ql (U) Negative Normal Negative [facility] Comment on above: Performed By: #### U AR #### [facility] [address] [place] [address] Clarity (U) Clear Normal Clear [facility] Comment on above: Performed By: #### U AR #### [facility] [address] [place] [address] Color (U) Yellow Normal Straw/Live Oak [facility] Comment on above: Performed By: #### U AR #### [facility] [address] [place] [address] Glucose Ql (U) Negative Normal Negative [facility] Comment on above: Performed By: #### U AR #### [facility] [address] [place] [address] Hemoglobin Ql (U) Trace-intact Normal Negative [facility] Comment on above: Performed By: #### U AR #### [facility] [address] [place] [address] Ketones Ql (U) Negative Normal Negative [facility] Comment on above: Performed By: #### U AR #### [facility] [address] [place] [address] Leukocyte esterase Test strip Ql (U) Negative Normal Negative [facility] Comment on above: Performed By: #### U AR #### [facility] [address] [place] [address] Nitrite Ql (U) Negative Normal Negative [facility] Comment on above: Performed By: #### U AR #### [facility] [address] [place] [address] pH (U) 6.0 [pH] Normal 5.0-9.0 [facility] Comment on above: Performed By: #### U AR #### [facility] [address] [place] [address] Protein Ql (U) Negative Normal Negative [facility] Comment on above: Performed By: #### U AR #### [facility] [address] [place] [address] Specific gravity (U) [Rel density] 1.020 Normal 1.005-1.03 [facility] Comment on above: Performed By: #### U AR #### [facility] [address] [place] [address] Urobilinogen Qn (U) 0.2 {Alan'U}/dL Normal < 2.0 [facility] Comment on above: Performed By: #### U AR #### [facility] [address] [place] [address] Urine Microscopicon 04-19-20 20 Epithelial cells LM Ql (Urine sed) 0-2 Normal [facility] Comment on above: Performed By: #### U ARELY #### [facility] [address] [place] [address] RBC (U) [#/Vol] 0-2 Normal 0-2 [facility] Comment on above: Performed By: #### U ARELY #### [facility] [address] [place] [address] WBC (U) [#/Vol] 0-2 Normal 0-5 [facility] Comment on above: Performed By: #### U ARELY #### [facility] [address] [place] [address] CBC Auto Differentialon 10-0 Basophils (Bld) [#/Vol] 0.1 10*3/uL 0 - 0.2 K/u L [place] Basophils/100 WBC (Bld) 0.4 % [place] Eosinophils (Bld) [#/Vol] 0.5 10*3/uL 0 - 0.7 K/uL [place] Eosinophils/100 WBC (Bld) 4.2 % [place] Erythrocyte distribution width (RBC) [Ratio] 12.5 % 11.5 - 14.5 % [place] Hematocrit (Bld) [Volume fraction] 39.4 % 37 - 47 % [place] Hemoglobin (Bld) [Mass/Vol] 13.3 g/dL 12 - 16 g/dL [place] Interpretation and review of laboratory results Abnormal [place] Lymphocytes (Bld) [#/Vol] 3.2 10*3/uL 1 - 4.8 K/uL [place] Lymphocytes/100 WBC (Bld) 26.9 % [place] MCH (RBC) [Entitic mass] 29.8 pg 27 - 31.3 pg [place] MCHC (RBC) [Mass/Vol] 33.8 % 33 - 37 % [place] MCV (RBC) [Entitic vol] 88.4 fL 82 - 100 fL [place] Monocytes (Bld) [#/Vol] 0.8 10*3/uL 0.2 - 0.8 K /uL [place] Monocytes/100 WBC (Bld) 6.8 % [place] Neutrophils Absolute 7.3 K/uL High 1.4 - 6.5 K/uL [place] Neutrophils/100 WBC (Bld) 61.7 % [place] Platelets (Bld) [#/Vol] 314 10*3/uL 130 - 400 K /uL [place] RBC (Bld) [#/Vol] 4.45 10*6/uL [place] WBC (Bld) [#/Vol] 11.9 10*3/uL High 4.8 - 10.8 K/uL [place] Comprehensive Metabolic Pane crescencio 04-18-2020 Albumin [Mass/Vol] 4.9 g/dL High 3.5 - 4.6 g/dL [place] ALP [Catalytic activity/Vol] 40 U/L 40 - 130 U/L [place] ALT [Catalytic activity/Vol] 17 U/L 0 - 33 U/L [place] Anion gap [Moles/Vol] 14 mmol/L [place] AST [Catalytic activity/Vol] 17 U/L 0 - 35 U/L [place] Bilirubin Ql (U) <0.2 0.2 - 0.7 mg/dL [place] Calcium [Mass/Vol] 10.0 mg/dL High 8.5 - 9.9 mg/dL [place] Chloride [Moles/Vol] 101 mmol/L [place] CO2 [Moles/Vol] 24 mmol/L [place] Creatinine [Mass/Vol] 0.87 mg/dL 0.5 - 0.9 mg/dL [place] GFR >60.0 >60 [place] Comment on above: >60 mL/min/1.73m2 EG FR, calc. for ages 18 and older using the MDRD formula (not corrected for weight), is valid for stable renal function. GFR Non- >60.0 >60 [place] Comment on above: >60 mL/min/1.73m2 EG FR, calc. for ages 18 and older using the MDRD formula (not corrected for weight), is valid for stable renal function. Globulin (S) [Mass/Vol] 3.1 g/dL 2.3 - 3.5 g/ dL [place] Glucose [Mass/Vol] 94 mg/dL 70 - 99 mg/dL [place] Interpretation and review of laboratory results Abnormal [place] Potassium [Moles/Vol] 3.9 mmol/L [place] Protein [Mass/Vol] 8.0 g/dL 6.3 - 8 g/dL [place] Sodium [Moles/Vol] 139 mmol/L [place] Urea nitrogen [Mass/Vol] 12 mg/dL 6 - 20 mg/dL [place] HCG Qualitative, Serumon hCG Qual Negative [place] Lactic Acid, Plasmaon 2019 Lactate [Moles/Vol] 1.8 mmol/L 0.5 - 2. 2 mmol/L [place] Microscopic Urinalysison Epithelial Cells, UA 0-2 /HPF [place] RBC (U) [#/Vol] 0-2 [place] WBC, UA 0-2 [place] Urine Reflex to Cultureon Bilirubin Urine Negative Negative [place] Blood, Urine Trace-intact Negative [place] Clarity, UA Clear Clear [place] Color, UA Yellow Straw/Yellow [place] Glucose, Ur Negative Negative mg/dL [place] Ketones Ql (U) Negative Negative mg/dL [place] Leukocyte esterase Test strip Ql (U) Negative Negative [place] Nitrite, Urine Negative Negative [place] pH, UA 6.0 [place] Protein (U) [Mass/Vol] Negative Negative mg/d L [place] Specific [place], UA 1.020 [place] Urine Reflex to Culture Not Indicated [place] Urobilinogen, Urine 0.2 <2.0 E.U./dL [place] ECHOCARDIOGRAPHY REPORT (HL) on 05-10-2017 ECHOCARDIOGRAPHY REPORT (HL) PRINCESS CANTU [id number] VASCULAR LABReferring: Koffi Uriarte A.Reading: CURTIS GARCIA [...] 4 CH 16.1 cm2LA Volume Indexed 21.05 ml/n1Zdpykssau/Systoli c FunctionMV E-wave Vmax 0.884 m/secMV deceleration time 193 msecMV A-wave Vmax 0.494 m/secLV septal e' Vmax 0.115 m/secLV lateral e' Vmax 0.189 m/secLV E:e' septal ratio 7.7 ratio [facility] PRINCESS CANTU [id number] [place] [address] [id number] 93Jackie Uriarte MDECHOCARDIOGRAPHY REPORTLV E:e' lateral ratio [...] structure. There is no evidence ofpulmonic regurgitation. [facility] PRINCESS CANTU [id number] [place] [address] [id number] 93[facility] Hospital[facility]ie roper MDECHOCARDIOGRAPHY REPORTPericardium:Ther e is no [...] Normal valve function.This is a normal echocardiogram.PARAS HCOW05/10/2017 10:26:53 [facility] PRINCESS CANTU [id number] [place] [address] [id number] 93[facility] HospitalJackie roper MDECHOCARDIOGRAPHY REPORT Normal [facility] BASIC METABOLIC PANELon 10- Anion gap 10 mmol/L Normal 6-18 [facility] Comment on above: Order Comment: Is pa tient fasting? YES Performed By: #### L BMP, LGFRP ####[facility] [address] [place] [address] Calcium 9.6 mg/dL Normal 8.6-10.3 [facility] Comment on above: Order Comment: Is pa tient fasting? YES Performed By: #### L BMP, LGFRP ####[facility] Crnpuzxdcl80099 [place] [address] Chloride 101 mmol/L Normal 98-107 [facility] Comment on above: Order Comment: Is pa tient fasting? YES Performed By: #### L BMP, LGFRP ####[facility] J[address]zq93593 [place] [address] CO2 27 mmol/L Normal 21-32 [facility] Comment on above: Order Comment: Is pa tient fasting? YES Performed By: #### L BMP, LGFRP ####[facility] Eoxsxdfswt35196 [place] [address] Creatinine 0.74 mg/dL Normal 0.5-1.05 [facility] Comment on above: Order Comment: Is pa tient fasting? YES Performed By: #### L BMP, LGFRP ####[facility] Nobhoewvkt48478 [place] [address] Glucose mass conc 82 mg/dL Normal 74-99 [facility] Comment on above: Order Comment: Is pa tient fasting? YES Performed By: #### L BMP, LGFRP ####[facility] Ig[address]uuqfv59751 [place] [address] Potassium molar conc 4.1 mmol/L Normal 3.5-5.3 [facility] Comment on above: Order Comment: Is pa tient fasting? YES Performed By: #### L BMP, LGFRP ####[facility] [address]jtpdqpi55551 [place] [address] Sodium 134 mmol/L Low 136-145 [facility] Comment on above: Order Comment: Is pa tient fasting? YES Performed By: #### L BMP, LGFRP ####[facility] Hnnvvbpkbl98220 [place] [address] Urea nitrogen 14 mg/dL Normal 6-23 [facility] Comment on above: Order Comment: Is pa tient fasting? YES Performed By: #### L BMP, LGFRP ####[facility] Nsyauluxrh33898 [place] [address] CBC AUTOon 05-04-2017 Erythrocyte distribution width Auto Ratio (RBC) 12.8 % Normal 11.5-14.5 [facility] Comment on above: Performed By: #### L CBC ####[facility] Cpbwlldvsi40554 [place] [address] Erythrocytes (RBC) 4.65 10*6/uL Normal 3.5-5.5 [facility] Comment on above: Performed By: #### L CBC ####[facility] Rmwedhudrk23729 [place] [address] Hematocrit (HCT) 41.1 % Normal 36.0-48.0 [facility] Comment on above: Performed By: #### L CBC ####[facility] Aowujwtyuc71790 [place] [address] Hemoglobin mass conc (Bld) 13.8 g/dL Normal 12.0-15.0 [facility] Comment on above: Performed By: #### L CBC ####[facility] [address] [place] [address] MCH 29.7 pg Normal 25.4-34.6 [facility] Comment on above: Performed By: #### L CBC ####[facility] [address] [place] [address] MCHC mass conc (RBC) 33.6 g/dL Normal 30.0-36.0 [facility] Comment on above: Performed By: #### L CBC ####[facility] [address] [place] [address] MCV 88.4 fL Normal 79.0-98.0 [facility] Comment on above: Performed By: #### L CBC ####[facility] [address] [place] [address] Platelet mean volume (PMV) 9.3 fL Normal 8.4-11.9 [facility] Comment on above: Performed By: #### L CBC ####[facility] [id number] [place] [address] Platelets 277 10*3/uL Normal 140-440 [facility] Comment on above: Performed By: #### L CBC ####[facility] Fkmvpkvjyb33431 [place] [address] WBC (Leukocytes) 6.1 10*3/uL Normal 3.9-11.0 [facility] Comment on above: Performed By: #### L CBC ####[facility] Smwskbxcmt09833 [place] [address] GLOMERULAR FILTRATION RATE E SToaugustina 05-04-2017 eGFR (non-black) mL/min/{1.73_m2} Normal > 60 [facility] Comment on above: Order Comment: Is pa tient fasting? YES Performed By: #### L BMP, LGFRP ####[facility] Mbem[address]xbrg38889 [place] [address] IF AMER > 90 Normal > 60 [facility] Comment on above: Order Comment: Is pa tient fasting? YES Result Comment: Effe ctive 12/12/14:CKD-EPI equation / based on IDMS traceable creatinine.Continue to use the CREAT CLR-DOSE ([place]gro[place]-Gault)value for determining medication dose. Performed By: #### L BMP, LGFRP ####[facility] [address]qwrhyfrz67425 [place] [address] Vital Signs Date Time Vital Sign Value Performing Clinician Yael murguia 11-09-2023 15:27-0400 Body height 175.26 cm [facility] 11-09-2023 15:27-0400 Body mass index (BMI) [Ratio] 28.2 kg/m2 [facility] 11-09-2023 15:27-0400 Body temperature 98.1 [degF] [facility] 11-09-2023 15:27-0400 Body weight 86.74 kg [facility] 11-09-2023 15:27-0400 Heart rate 63 /min [facility] 11-09-2023 15:27-0400 Respiratory rate 18 /min [facility] 11-09-2023 15:27-0400 SaO2% (BldA) [Mass fraction] 99 % [facility] 07-31-2022 10:54-0500 Body height 175.26 cm Koffiminesh Clementeson Work Phone: Played Work Phone: 07-31-2022 10:54-0500 Body mass index (BMI) [Ratio] 31.01 kg/m2 Koffi Rosas Uriarte Work Phone: [employer] Work Phone: 07-31-2022 10:54-0500 Body surface area Derived from formula 2.11 m2 Koffiminesh Uriarte Work Phone: KL-QBZA-Mlkq [place] Work Phone: 07-31-2022 10:54-0500 Body temperature 97.6 [degF] Koffi Uriarte Work Phone: MR-WBZF-Bfjr [place] Work Phone: 07-31-2022 10:54-0500 Body weight 95.26 kg Koffi Uriarte Work Phone: CT-DNVZ-Vdsp [place] Work Phone: 07-31-2022 10:54-0500 Diastolic blood pressure 87 mm[Hg] Koffi Uriatre Work Phone: AD-OALN-Rwts [place] Work Phone: 07-31-2022 10:54-0500 Heart rate 76 /min Koffi Uriarte Work Phone: KP-XJAF-Umhv [place] Work Phone: 07-31-2022 10:54-0500 Respiratory rate 18 /min Koffi Uriarte Work Phone: EI-WKIT-Ihnt [place] Work Phone: 07-31-2022 10:54-0500 Systolic blood pressure 121 mm[Hg] Koffi Uriarte Work Phone: OK-XYGC-Iwpz [place] Work Phone: 12-24-2021 11:32-0400 Body height 175.26 cm Koffi Uriarte Work Phone: XJ-Vcdkneisy-Nmilo ake SJW DO Work Phone: 12-24-2021 11:32-0400 Body mass index (BMI) [Ratio] 31.03 kg/m2 Koffi Uriarte Work Phone: EJ-Chydgrmfp-Rktvm ake SJW DO Work Phone: 12-24-2021 11:32-0400 Body surface area Derived from formula 2.11 m2 Koffi Uriarte Work Phone: FQ-Xrcsdpfab-Xbujg nicole SJW DO Work Phone: 12-24-2021 11:32-0400 Body temperature 97.1 [degF] Koffi Uriarte Work Phone: GN-Tzmpntuou-Kpoul nicole SJW DO Work Phone: 12-24-2021 11:32-0400 Body weight 95.3 kg Koffi Uriarte Work Phone: CC-Mhebooqgy-Ewcsp nicole SJW DO Work Phone: 12-24-2021 11:32-0400 Diastolic blood pressure 76 mm[Hg] Koffi Uriarte Work Phone: MA-Zuuhhctop-Ldpyc nicole W DO Work Phone: 12-24-2021 11:32-0400 Heart rate 54 /min Koffi Uriarte Work Phone: KK-Frzjkczrl-Fbwxt nicole W DO Work Phone: 12-24-2021 11:32-0400 SaO2% (BldA) [Mass fraction] 100 % Koffi Uriarte Work Phone: KN-Awsxaasud-Vnupz nicole W DO Work Phone: 12-24-2021 11:32-0400 Systolic blood pressure 114 mm[Hg] Koffi Uriarte Work Phone: MU-Cqbzvmzqr-Jswoy nicole SJW DO Work Phone: 11-17-2021 13:08-0400 Body height 172.72 cm Koffi Uriarte Work Phone: VL-UUIH-Csba [place] Work Phone: 11-17-2021 13:08-0400 Body mass index (BMI) [Ratio] 32.39 kg/m2 Koffi Uriarte Work Phone: JO-GCYK-Ziva [place] Work Phone: 11-17-2021 13:08-0400 Body surface area Derived from formula 2.1 m2 Koffi Uriarte Work Phone: OG-XNKD-Nxpl [place] Work Phone: 11-17-2021 13:08-0400 Body temperature 97 [degF] Koffi Uriarte Work Phone: GL-BOFH-Dpbr [place] Work Phone: 11-17-2021 13:08-0400 Body weight 96.62 kg Koffi Uriarte Work Phone: BX-MFAK-Wgcs [place] Work Phone: 11-17-2021 13:08-0400 Diastolic blood pressure 84 mm[Hg] Koffi Uriarte Work Phone: ZL-QQPT-Umgb [place] Work Phone: 11-17-2021 13:08-0400 Heart rate 70 /min Koffi Uriarte Work Phone: TZ-YBFY-Exgw [place] Work Phone: 11-17-2021 13:08-0400 Respiratory rate 18 /min Koffi Uriarte Work Phone: PY-WXWH-Ukjv [place] Work Phone: 11-17-2021 13:08-0400 SaO2% (BldA) [Mass fraction] 96 % Koffi Uriarte Work Phone: VO-FVFB-Qhiw [place] Work Phone: 11-17-2021 13:08-0400 Systolic blood pressure 126 mm[Hg] Koffi Uriarte Work Phone: HL-YRFV-Gxzl [place] Work Phone: 06-25-2021 10:54-0500 Body height 172.72 cm Koffi Uriarte Work Phone: FW-Nmhjygsix-Muftp nicole SJW DO Work Phone: 06-25-2021 10:54-0500 Body mass index (BMI) [Ratio] 32.08 kg/m2 Koffi A Uriarte Work Phone: EF-Xgzsjlyuw-Mceef nicole SJW DO Work Phone: 06-25-2021 10:54-0500 Body surface area Derived from formula 2.09 m2 Koffi Clementeson Work Phone: GH-Suahqxikk-Hrnfc nicole SJW DO Work Phone: 06-25-2021 10:54-0500 Body temperature 97.1 [degF] Koffi Clementeson Work Phone: ZF-Sqgbxhqgm-Teaum nicole SJW DO Work Phone: 06-25-2021 10:54-0500 Body weight 95.71 kg Koffi Clementeson Work Phone: DW-Kwezcpvke-Mnxky nicole SJW DO Work Phone: 06-25-2021 10:54-0500 Diastolic blood pressure 62 mm[Hg] Koffi Clementeson Work Phone: UE-Hntgeegax-Pbzrr nicole SJW DO Work Phone: 06-25-2021 10:54-0500 Heart rate 67 /min Koffi A Uriarte Work Phone: FY-Zfxropmyn-Vomwx nicole SJW DO Work Phone: 06-25-2021 10:54-0500 Respiratory rate 18 /min Koffi A Uriarte Work Phone: VH-Xxmhtkxiy-Zuqac nicole SJW DO Work Phone: 06-25-2021 10:54-0500 SaO2% (BldA) [Mass fraction] 99 % Koffi A Chapito Work Phone: LI-Kstktuvfq-Lulft nicole SJW DO Work Phone: 06-25-2021 10:54-0500 Systolic blood pressure 131 mm[Hg] Koffi Uriarte Work Phone: VE-Xljmrtwja-Fxkqc nicole SJW DO Work Phone: 05-20-2021 15:59-0400 Body height 172.72 cm Koffi Uriarte Work Phone: OH-HBAF-Ksaa [place] Work Phone: 05-20-2021 15:59-0400 Body mass index (BMI) [Ratio] 31.93 kg/m2 Koffi Uriarte Work Phone: GP-WDAV-Wtaz [place] Work Phone: 05-20-2021 15:59-0400 Body surface area Derived from formula 2.09 m2 Koffi Uriarte Work Phone: QR-OJIB-Kuwb [place] Work Phone: 05-20-2021 15:59-0400 Body temperature 98.1 [degF] Koffi Uriarte Work Phone: ON-UVGH-Aqow [place] Work Phone: 05-20-2021 15:59-0400 Body weight 95.26 kg Koffi Uriarte Work Phone: QX-RWYA-Pldg [place] Work Phone: 05-20-2021 15:59-0400 Diastolic blood pressure 82 mm[Hg] Koffi Uriarte Work Phone: DC-FMDB-Ffre [place] Work Phone: 05-20-2021 15:59-0400 Heart rate 72 /min Koffi Uriarte Work Phone: YJ-BMUY-Bcvr [place] Work Phone: 05-20-2021 15:59-0400 Respiratory rate 16 /min Koffi Uriarte Work Phone: QP-TDCL-[place]un [place] Work Phone: 05-20-2021 15:59-0400 Systolic blood pressure 122 mm[Hg] Koffi Uriarte Work Phone: FC-MHZI-Bsao [place] Work Phone: 12-24-2020 14:45-0400 Body height 172.72 cm Koffi Uriarte Work Phone: YD-ODHA-Vsik [place] Work Phone: 12-24-2020 14:45-0400 Body mass index (BMI) [Ratio] 30.71 kg/m2 Koffi Uriarte Work Phone: IS-RDMB-Jmea [place] Work Phone: 12-24-2020 14:45-0400 Body surface area Derived from formula 2.05 m2 Koffi Uriarte Work Phone: AB-SSEY-Cwst [place] Work Phone: 12-24-2020 14:45-0400 Body temperature 97.8 [degF] Koffi Uriarte Work Phone: XV-WVZA-Ecjy [place] Work Phone: 12-24-2020 14:45-0400 Body weight 91.63 kg Koffi Urirate Work Phone: UG-FQAL-Kvbi [place] Work Phone: 12-24-2020 12:59-0400 Body height 172.72 cm Koffi Uriarte Work Phone: IA-KXJL-Ihow [place] Work Phone: 12-24-2020 12:59-0400 Body mass index (BMI) [Ratio] 30.71 kg/m2 Koffi Clementeson Work Phone: RZ-WIUR-Ngfn [place] Work Phone: 12-24-2020 12:59-0400 Body surface area Derived from formula 2.05 m2 Koffi Uriarte Work Phone: FS-ZTST-Ohll [place] Work Phone: 12-24-2020 12:59-0400 Body temperature 98.2 [degF] Koffi Uriarte Work Phone: RI-WJPC-Zwsi [place] Work Phone: 12-24-2020 12:59-0400 Body weight 91.63 kg Koffi Uriarte Work Phone: UG-JKVO-Hjtf [place] Work Phone: 12-24-2020 12:59-0400 Diastolic blood pressure 90 mm[Hg] Koffi Uriarte Work Phone: HT-ISSD-Hvsb [place] Work Phone: 12-24-2020 12:59-0400 Heart rate 75 /min Koffi Uriarte Work Phone: HL-PEQJ-Tbqr [place] Work Phone: 12-24-2020 12:59-0400 Respiratory rate 16 /min Koffi Uriarte Work Phone: SF-PLFB-Tqki [place] Work Phone: 12-24-2020 12:59-0400 Systolic blood pressure 147 mm[Hg] Koffi Uriarte Work Phone: RM-DWON-Bffv [place] Work Phone: 08-14-2020 13:26-0500 BMI (Body Mass Index) 29.04 kg/m2 Koffi Uriarte CC-Jwqrabdgl-Tyqtg nicole SJW DO Work Phone: 08-14-2020 13:26-0500 [...] (Body Surface Area) 2 m2 Koffi Uriarte XR-Znwpmkzxq-Xiupa nicole W DO Work Phone: 08-14-2020 13:26-0500 Height 172.72 cm Koffi Uriarte MP-Neurology- [place] nicole W DO Work Phone: 05-28-2020 15:24-0500 BMI (Body Mass Index) 28.59 kg/m2 Koffi Uriarte CK-LOTJ-Ardz [place] Work Phone: 05-28-2020 15:24-0500 Body Temperature 97.6 [degF] Koffi Uriarte XV-SILY-Iaeh [place] Work Phone: 05-28-2020 15:24-0500 Body weight 85.28 kg Koffi Uriarte JG-BAKK-Ahhz [place] Work Phone: 05-28-2020 15:24-0500 BP Diastolic 82 mm[Hg] Koffi Uriatre XL-OLUU-Hnqz [place] Work Phone: 05-28-2020 15:24-0500 BP Systolic 122 mm[Hg] Koffi Uriarte OD-KWEP-Ynnx [place] Work Phone: 05-28-2020 15:24-0500 BSA (Body Surface Area) 1.99 m2 Koffi Uriarte WL-AHTL-Ruca [place] Work Phone: 05-28-2020 15:24-0500 Height 172.72 cm Koffi Uriarte MP-WSPC-[place] Work Phone: 05-28-2020 15:24-0500 Pulse (Heart Rate) 70 /min Koffi Uriarte MP-WSPC-[place] Work Phone: 05-28-2020 15:24-0500 Respiratory Rate 18 /min Koffi Uriarte MP-WSPC-[place] Work Phone: 04-25-2020 16:01-0400 BMI (Body Mass Index) 28.59 kg/m2 Koffi Uriarte MP-WSPC-[place] Work Phone: 04-25-2020 16:01-0400 Body Temperature 98.6 [degF] Koffi Uriarte MP-WSPC-[place] Work Phone: 04-25-2020 16:01-0400 Body weight 85.28 kg Koffi Uriarte MP-WSPC-[place] Work Phone: 04-25-2020 16:01-0400 BP Diastolic 101 mm[Hg] Koffi Uriarte MP-WSPC-[place] Work Phone: 04-25-2020 16:01-0400 BP Systolic 154 mm[Hg] Koffi Uriarte MP-WSPC-[place] Work Phone: 04-25-2020 16:01-0400 BSA (Body Surface Area) 1.99 m2 Koffi Uriarte MP-WSPC-[place] Work Phone: 04-25-2020 16:01-0400 Height 172.72 cm Koffi Uriarte MP-WSPC-[place] Work Phone: 04-25-2020 16:01-0400 Pulse (Heart Rate) 76 /min Koffi Uriarte MP-WSPC[facility] Work Phone: 04-25-2020 16:01-0400 Respiratory Rate 16 /min Koffi Uriarte MP-WSPC-[place] Work Phone: 04-19-2020 00:00-0400 BP Diastolic 83 mm[Hg] [facility] [place] 04-19-2020 00:00-0400 BP Systolic 144 mm[Hg] [facility] 04-18-2020 22:17-0400 BMI (Body Mass Index) 28.06 kg/m2 [facility] 04-18-2020 22:17-0400 Body Temperature 98.91 [degF] Tu Wright [facility] 04-18-2020 22:17-0400 Body weight 86.18 kg [facility] 04-18-2020 22:17-0400 Height 175.3 cm [facility] 04-18-2020 22:17-0400 Pulse (Heart Rate) 105 /min [facility] [place] 04-18-2020 22:17-0400 Pulse Oximetry 97 % [facility] 04-18-2020 22:17-0400 Respiratory Rate 16 /min Tu Wright [facility] Encounters Encounter Date Encounter Type Care Provider Facility Start: 11-09-2023 End: 11-09-2023 ambulatory [facility] Work Phone: Start: 11-09-2023 End: 11-09-2023 Patient encounter procedure [facility] Work Phone: Start: 08-11-2023 End: 08-11-2023 ambulatory SHIMA CLARK Not Available Start: 08-04-2023 End: 08-04-2023 ambulatory Willis April Facility:[facility] Start: 07-28-2023 End: 07-28-2023 ambulatory WILLIS APRIL Not Available Start: 07-14-2023 End: 07-14-2023 ambulatory SHIMA CLARK Not Available Start: 06-30-2023 End: 07-01-2023 ambulatory SHIMA CLARK Not Available Start: 06-16-2023 End: 06-16-2023 ambulatory SHIMA CLARK Not Available Start: 06-01-2023 End: 06-01-2023 ambulatory SHIMA RODAS Not Available Start: 04-30-2023 End: 04-30-2023 ambulatory NEDRA Jha [facility] Ambulatory Start: 04-30-2023 End: 04-30-2023 Office outpatient visit 15 minutes Nedra Calderon MD Work Phone: [facility] Comment on above: Seizure (CMS/HCC) (P rimary Dx) Start: 11-25-2022 End: 11-26-[address] WILLIS CHEN . Facility:[facility] Start: 11-16-2022 End: 11-17-[address] WILLIS CHEN . Facility: Start: 07-31-2022 Current tobacco non- user cad cap copd pv dm Koffi Uriarte Work Phone: [employer] Work Phone: Start: 07-31-2022 Periodic preventive med est patient 18-39 yrs Koffi Uriarte Work Phone: [employer] Work Phone: Start: 07-31-[address] 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 Work Phone: CB/Gynecology Comment on above: Appointment Start: 03-18-2022 AUDIT Koffi roper Work Phone: BV-Lkbtezukk-Dwzzzse e SJW DO Work Phone: Start: 02-03-2022 ambulatory Brendan Blankenship PA-C Work Phone: OB/Gynecology Comment on above: Bacteria Vaginosis Start: 01-02-2022 AUDIT Kofif Carlson ardson Work Phone: RN-SZOZ-[place] Work Phone: Start: 12-24-2021 Office outpatient vi sit 15 minutes Koffi A Uriarte Work Phone: AW-Pkxajaynf-Jmqokiw e [employer] DO Work Phone: Start: 11-17-2021 Office outpatient vi sit 15 minutes Koffi A Uriarte Work Phone: LU-GJOE-Rckl [place] Work Phone: Start: 09-29-2021 AUDIT Koffi Alison Carlson ardson Work Phone: UN-SGIR-Ttqd [place] Work Phone: Start: 09-09-2021 End: 09-09-2021 ambulatory BRENDAN BLANKENSHIP Facility:[facility] Start: 07-04-2021 End: 07-05-2021 ambulatory GEORGIA REYMUNDO Facility:[facility] Start: 07-04-2021 Encounter for gynecological examination (general) (routine) without abnormal findings [place] [facility] Start: 06-25-2021 Office outpatient vi sit 25 minutes Koffi A Uriarte Work Phone: GA-Wnkxoaxvf-Warqnvs e [employer] DO Work Phone: Start: 05-22-2021 Chart Update Koffi Carlson ardson Work Phone: KW-BBZO-Vfls [place] Work Phone: Start: 05-20-2021 Office outpatient vi sit 25 minutes Koffi A Uriarte Work Phone: AB-KYRK-Wrlb [place] Work Phone: Start: 05-20-2021 Patient encounter procedure Koffi Uriarte Work Phone: OF-SGJO-Emsj [place] Work Phone: Start: 03-28-2021 AUDIT Koffi roper Work Phone: BM-QDOV-Dtrk [place] Work Phone: Start: 12-24-2020 Chart Update Koffi roper Work Phone: YA-OZVM-Rtkv [place] Work Phone: Start: 12-24-2020 Office outpatient vi sit 25 minutes Koffi Uriarte Work Phone: KN-XPCW-Mdpm [place] Work Phone: Start: 08-14-2020 Patient encounter procedure Koffi Uriarte DF-Wdqiprpas-Vgkghtp e [employer] Work Phone: Start: 06-11-2020 Patient encounter procedure Koffi Uriarte UY-Ryttrsann-Oywjprd e SJW DO Work Phone: Start: 05-28-2020 Patient encounter procedure Koffi Uriarte TK-BSYO-Mvio [place] Work Phone: Start: 05-09-2020 End: 05-12-2020 Patient encounter procedure 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 Comment on above: Seizure (HCC) (Prima ry Dx) Start: 03-02-2019 Patient encounter procedure Koffi Uriarte GX-XAWQ-[place] Work Phone: Start: 05-04-2017 Ambulatory Koffi Uriarte Fa cility:[facility] Patient encounter status Koffi Uriarte Work Phone: EH-ZQQW-Xtsz [place] Work Phone: Procedures Date Procedure Procedure [...] Phone: Start: 04-19-2020 Assay of lactate ZAC ANDRESON Start: 04-19-2020 Assay of prolactin ZAC ANDERSON [...] Start: 04-18-2020 Urinalysis microscopic only Tu Henley [facility] Work Phone: Start: 04-18-2020 Urnls dip stick/tablet rgnt auto w/o microscopy Tu Henley [place] Work Phone: Start: 04-18-2020 Blood count complete auto&auto difrntl wbc Tu Henley [place] Work Phone: Start: 04-18-2020 Comprehensive metabolic panel Tu Henley [place] Work Phone: Start: 04-18-2020 Gonadotropin chorionic qualitative Tu Henley [place] Work Phone: History of No histor y of surgery Koffi Uriarte No history of surgery Shahnaz Uriarte Work Phone: Plan of Treatment Date Care Activity Detail Author Start: 10-02-2043 Zoster Vaccines (1 o f 2) Zoster Vaccines (1 of 2) [facility] Start: 02-17-2028 DTaP/Tdap/Td Vaccine s (8 - Td or Tdap) DTaP/Tdap/Td Vaccines (8 - Td or Tdap) [facility] Start: 08-02-2023 PHYSICAL, Provider: Koffi Uriarte, Status: Pen, Time: 9:00 AM PHYSICAL, Provider: Koffi Uriarte, Status: Nikita, Time: 9:00 AM TK-CXIA-Bvjp [place] Work Phone: Start: 08-02-2023 End: 08-02-2023 Patient encounter procedure 08/02/2023 9:00 AM EST Office Visit [facility] [address] [place] [address] [place] [address] [place] [address] [facility] Start: 07-02-2023 PAP TESTING PAP TESTING [facility] Start: 07-02-2023 Screening for malignant neoplasm of cervix [facility] Start: 12-24-2022 VIRFUVHOME, Provider : Nedra Calderon, Status: Pen, Time: 10:00 AM VIRFUVHOME, Provider: Nedra Calderon, Status: Pen, Time: 10:00 AM CJ-Seqmjllfs-Muzmdzo e [employer] DO Work Phone: Start: 05-22-2022 PHYSICAL, Provider: Koffi Uriarte, Status: Pen, Time: 9:50 AM PHYSICAL, Provider: Koffi Uriarte, Status: Pen, Time: 9:50 AM VO-OVXI-Jzly [place] Work Phone: Start: 03-24-2022 End: 05-24-2022 Choriogonadotropin.bet a subunit [Units/volume] in Serum or Plasma HCG QUANTITATIVE Lab Routine Bleeding in early Expected: 03/24/2022, Expires: 05/24/2022 [facility] Work Phone: Comment on above: Expected: 03/24/2022 , Expires: 05/24/2022 Start: 03-19-2022 Influenza vaccination INFLUENZA (#1) [facility] Start: 12-24-2021 Thyroid stimulating hormone measurement TSH Level [facility] Start: 12-24-2021 FUVGENERAL, Provider : Nedra Calderon, Status: Pen, Time: 11:30 AM FUVGENERAL, Provider: Nedra Calderon, Status: Pen, Time: 11:30 AM RV-Uzyhtzpte-Izbcitv e SJW DO Work Phone: Start: 11-17-2021 FUV, Provider: Koffi Uriarte, Status: Pen, Time: 1:00 PM FUV, Provider: Koffi Uriarte, Status: Pen, Time: 1:00 PM ZF-OUNI-Bapq [place] Work Phone: Start: 07-01-2021 COVID-19 VACCINE (3 - Booster for Pfizer series) COVID-19 VACCINE (3 - Booster for Pfizer series) [facility] Start: 06-25-2021 FUVGENERAL, Provider : Nedra Calderon, Status: Pen, Time: 2:00 PM FUVGENERAL, Provider: Nedra Calderon, Status: Pen, Time: 2:00 PM RA-CEWP-Itsi [place] Work Phone: Start: 06-25-2021 FUVGENERAL, Provider : Nedra Calderon, Status: Pen, Time: 11:00 AM FUVGENERAL, Provider: Nedra Calderon, Status: Pen, Time: 11:00 AM BW-RADK-Prss [place] Work Phone: Start: 05-20-2021 FUV, Provider: Koffi Uriarte, Status: Pen, Time: 3:40 PM FUV, Provider: Koffi Uriarte, Status: Pen, Time: 3:40 PM TC-BWEM-Zsob [place] Work Phone: Start: 03-31-2021 FUV, Provider: Koffi Uriarte, Status: Pen, Time: 2:00 PM FUV, Provider: Koffi Uriarte, Status: Pen, Time: 2:00 PM HJ-VKXR-[place]au [place] Work Phone: Start: 03-26-2021 COVID-19 Vaccine (3 - Pfizer series) COVID-19 Vaccine (3 - Pfizer series) [facility] Start: 03-19-2020 Influenza vaccination Flu vaccine (# 1) [place], [place] Start: 03-02-2018 DTaP/Tdap/Td vaccine (7 - Td) DTaP/Tdap/Td vaccine (7 - Td) [place] Start: 03-02-2018 Urine microalbumin profile DTAP,TDAP,TD (7 - Td or Tdap) [facility] Start: 2014 Screening for malignant neoplasm of cervix [facility] Start: 10-02-2011 HEPATITIS C SCREENING HEPATITIS C [facility] Start: 10-02-2011 Hepatitis C screening Hepatitis C [facility] Start: 10-02-2011 HIV SCREENING HIV SCREENING [facility] Start: 2008 [facility] [place] [place] Start: 2005 Adult depression screening assessment DEPRESSION SCREENING [facility] Start: 2004 HPV vaccine (1 - 2-dose series) HPV vaccine (1 - 2-dose series) [place] Start: 04-09-1999 Varicella vaccination Varicell a Vaccines (1 of 2 - 2-dose childhood series) [facility] Start: 1994 Varicella vaccine (1 of 2 - 2-dose childhood series) Varicella vaccine (1 of 2 - 2-dose childhood series) [place] Start: 1993 HIV screening HIV Screening [facility] Start: 1993 Lipid panel Lipid Panel [facility] Start: 1993 Yearly Adult Physical Yearly Adult P hysical [facility] End: 04-18-2020 CT Head WO Contrast CT Head WO Contrast Imaging STAT Once for 1 Occurrences starting 04/18/2020 until 04/18/2020 [place] Comment on above: Once for 1 Occurrenc es starting 04/18/2020 until 04/18/2020 CT Head WO Contrast CT Head WO C ontrast Imaging STAT 04/18/2020 11:15 PM EDT [place] End: 04-18-2020 Prolactin Prolactin Lab STAT One Time for 1 Occurrences starting 04/18/2020 until 04/18/2020 [place] Comment on above: One Time for 1 Occur rences starting 04/18/2020 until 04/18/[address] AT 04/18/2020 11:17 PM EDT [place] Tamara Patterson Work Phone: [facility] NEGATED: Highlighted row has been ruled out! Planned Goals not documented Tamara Ruby Work Phone: Immunizations Immunization Date Immunization Notes Care Provider Radha laura 04-21-2022 influenza, injectabl e, quadrivalent, preservative free Koffi Uriarte Work Phone: [employer] Work Phone: 04-18-2021 influenza, injectabl e, quadrivalent, preservative free Koffi A Uriarte Work Phone: [employer] Work Phone: 01-29-2021 Pfizer-ImmusanTNTCAPNIA COVID-19 Vacc 30 MCG/0.3ML Intramuscular Suspension Koffi A Uriarte Work Phone: [employer] Work Phone: 01-08-2021 Pfizer-BioNTech COVID-19 Vacc 30 MCG/0.3ML Intramuscular Suspension Koffi Rosas Zazuba Work Phone: [employer] Work Phone: 05-09-2019 Influenza, injectabl e, Madin Claudia Canine Kidney, preservative free, quadrivalent Koffi Rosas Uriarte Work Phone: [employer] Work Phone: 04-28-2018 influenza, injectabl e, quadrivalent, contains preservative Koffi Uriarte Work Phone: [employer] Work Phone: 02-16-2018 tetanus toxoid, redu diego diphtheria toxoid, and acellular pertussis vaccine, adsorbed Koffi Rosas Uriarte Work Phone: [employer] Work Phone: 05-06-2017 influenza, injectabl e, quadrivalent, preservative free Koffi A Uriarte Work Phone: [employer] Work Phone: 01-14-2016 pneumococcal polysaccharide vaccine, 23 valent Koffi Rosas Zazuba Work Phone: [employer] Work Phone: 11-30-2014 tuberculin skin test ; purified protein derivative solution, intradermal [facility] 12-15-2013 tuberculin skin test ; purified protein derivative solution, intradermal [facility] 03-02-2008 tetanus toxoid, redu diego diphtheria toxoid, and acellular pertussis vaccine, adsorbed [facility] 02-25-2007 meningococcal polysaccharide (groups A, C, Y and W-135) diphtheria toxoid conjugate vaccine (MCV4P) [place], [place] 02-25-2007 Meningococcal, MCV4, unspecified conjugate formulation(groups A, C, Y and W-135) [facility] 03-12-1999 diphtheria, tetanus toxoids and acellular pertussis vaccine [facility] 03-12-1999 diphtheria, tetanus toxoids and acellular pertussis vaccine, unspecified formulation Koffi A Zazuba Work Phone: [employer] Work Phone: 03-12-1999 haemophilus influenz ae type b vaccine, HbOC conjugate [facility] 03-12-1999 measles, mumps and rubella virus vaccine [facility] 03-12-1999 poliovirus vaccine, inactivated [facility], [place] 03-12-1999 trivalent poliovirus vaccine, live, oral [place] 01-07-1995 diphtheria, tetanus toxoids and acellular pertussis vaccine [facility] 01-07-1995 diphtheria, tetanus toxoids and acellular pertussis vaccine, unspecified formulation Koffi A Uriarte Work Phone: [employer] Work Phone: 10-22-1994 haemophilus influenz ae type b vaccine, conjugate unspecified formulation [place] 10-22-1994 haemophilus influenz ae type b vaccine, PRP-OMP conjugate Koffi A Uriarte Work Phone: [employer] Work Phone: 10-22-1994 Hib, unspecified [facility] 10-22-1994 measles, mumps and rubella virus vaccine [facility] 10-22-1994 poliovirus vaccine, inactivated [facility] 06-18-1994 hepatitis B vaccine, pediatric or pediatric/adolescent dosage Koffi Uriarte Work Phone: [facility] 06-18-1994 hepatitis B vaccine, unspecified formulation [facility] , [place] 04-16-1994 diphtheria, tetanus toxoids and acellular pertussis vaccine [facility], [place] 04-16-1994 diphtheria, tetanus toxoids and pertussis vaccine [facility] 04-16-1994 haemophilus influenz ae type b vaccine, conjugate unspecified formulation [place] 04-16-1994 haemophilus influenz ae type b vaccine, HbOC conjugate Brendan Blankenship PA-C Work Phone: [facility] 04-16-1994 haemophilus influenz ae type b vaccine, PRP-OMP conjugate Koffi Uriarte Work Phone: [employer] Work Phone: 04-16-1994 Hib, unspecified [facility] 04-16-1994 poliovirus vaccine, inactivated [facility] 04-16-1994 trivalent poliovirus vaccine, live, oral [facility] 02-12-1994 diphtheria, tetanus toxoids and acellular pertussis vaccine [facility], [place] 02-12-1994 diphtheria, tetanus toxoids and pertussis vaccine [facility] 02-12-1994 haemophilus influenz ae type b vaccine, conjugate unspecified formulation [facility] 02-12-1994 haemophilus influenz ae type b vaccine, HbOC conjugate Brendan Mcelroypp PA-C Work Phone: [facility] 02-12-1994 haemophilus influenz ae type b vaccine, PRP-OMP conjugate Koffi Uriarte Work Phone: [employer] Work Phone: 02-12-1994 Hib, unspecified [place] 02-12-1994 poliovirus vaccine, inactivated [facility] 02-12-1994 trivalent poliovirus vaccine, live, oral [place] 01-08-1994 hepatitis B vaccine, pediatric or pediatric/adolescent dosage Koffi Alison Uriarte Work Phone: [facility] 01-08-1994 hepatitis B vaccine, unspecified formulation [place], [place] 1993 diphtheria, tetanus toxoids and acellular pertussis vaccine [place], [place] 1993 diphtheria, tetanus toxoids and pertussis vaccine [facility] 1993 haemophilus influenz ae type b vaccine, conjugate unspecified formulation [place], [place] 1993 haemophilus influenz ae type b vaccine, HbOC conjugate Brendan Blankenship PA-C Work Phone: [facility] 1993 haemophilus influenz ae type b vaccine, PRP-OMP conjugate Koffi Uriarte Work Phone: [facility] Work Phone: 1993 hepatitis B vaccine, pediatric or pediatric/adolescent dosage Koffi Uriarte Work Phone: [facility] 1993 hepatitis B vaccine, unspecified formulation [place], [place] 1993 Hib, unspecified [place], [place] 1993 poliovirus vaccine, inactivated [facility] 1993 trivalent poliovirus vaccine, live, oral [place] Payers Date Payer Category Payer Self-pay 2020 Unknown 2020 Unknown MMO MMO [employer] [id number] 2020-Present [phone] [address] [place] [address] PPO [id number] 2019 Unknown [id number] 1993 Unknown [id number] 1993 Unknown [id number] 1993 Unknown [id number] 1993 Unknown [id number] [id number] 1993 Unknown [id number] [id number] 1993 Unknown [id number] [id number] 1993 Unknown [id number] [id number] 1993 Unknown [id number] [id number] 1993 Unknown [id number] [id number] 1993 Unknown [id number] [id number] 1993 Unknown [id number] [id number] 1993 Unknown [id number] [id number] 1993 Unknown [id number] [id number] 1993 Unknown [id number] [id number] 1959 Unknown [id number] Unknown [id number] Unknown [id number] Unknown [id number] Social History Date Type Detail Facility Start: 04-18-2020 End: 11-09-2023 Tobacco smoking status NHIS Never smoker [facility] Start: 04-18-2020 End: 04-30-2023 Tobacco use and exposure Never used [place] Start: 04-18-2020 End: 09-09-2021 Alcohol intake Current drinker of alcohol (finding) [place] Start: 09-19-2019 History SDOH Financial 5 [place] Start: 09-19-2019 History SDOH Food Worry 1 [place] Start: 09-19-2019 History SDOH Transport Med 2 [place] Start: 04-18-2020 Alcohol Comment occasionally [place], [place] Start: 1993 Sex Assigned At Not on file [place] Start: 04-20-2023 End: 04-30-2023 Exposure to SARS-CoV-2 (event) Not sure [place] Never smoker Never smoker [employer] Work Phone: Tobacco smoking status Never [facility] Sex Assigned At Female [facility] Start: 1993 Sex Assigned At Female [facility] NEGATED: Highlighted row - - [employer] Work Phone: NEGATED: Highlighted rowStart: NINF History of tobacco use Passive smoker [facility] Work Phone: Functional Status Date Assessment Result Facility NEGATED: Highlighted row Functional performance Functional status health issues are not documented Disease [employer] Work Phone: Mental Status Date Assessment Result Facility NEGATED: Highlighted row Cognitive function [Interpretation] Cognitive status health issues are not documented Disease Played Work Phone: Clinical Notes 08-09-2017 to 04-30-2023 [...] 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 Patient Active Problem List Diagnosis Abnormal weight [...] 5/5 throughout all four extremities. Coordination Right: Jguwlt-bw-qbdm normal.Left: Idmrmr-bc-zler normal. Physical Exam Eyes: Extraocular Movements: Extraocular [...] in 1 year documented in this encounter [facility] Work Phone: 11-25-2022 Note EXAMINATION: [...] authenticated by: HAYLIE HOUSER Date: 2022-11-25 17:20 [facility] 04-16-2022 Note HNO ID: [id number] Author: Brendan Blankenship PA-C Service: ? 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 I, Brendan Blankenship, have reviewed this information as documented for accuracy and performed all elements of history taking, and edited the record as necessary. 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 documented in this encounter [facility] 03-19-2022 Miscellaneous Notes LMP 02/11, +hpt. Assisted w initial OBV. Advised to take vitamin w folic acid. First trimester precautions provided. handbook sent in . documented in this encounter [facility] 02-03-2022 Miscellaneous Notes The following approved medication requests have been transmitted electronically. Signed Prescriptions Disp Refills metroNIDAZOLE (FLAGYL) 500 mg tablet 14 tablet 0 Sig: Take 1 tablet by mouth twice daily. for vaginosis. Do not drink alcohol while taking this medication MICHELLE: No Brendan Souza APRN.SOFTWARE PACKAGER Pt reporting vag discharge/odor- same symptoms as past +BV dx. Last annual 06/2021. Req for BV medications Pending Prescriptions Disp Refills METRONIDAZOLE 500 MG TABLET 14 tablet 0 Sig: Take 1 tablet by mouth twice daily. for vaginosis. Do not drink alcohol while taking this medication MICHELLE: No documented in this encounter [facility] 09-09-2021 Note HNO ID: [id number] Author: Brendan Blankensihp PA-C Service: ? 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 Portions of this record were documented by the [employer]. I, Brendan Blankenship, have reviewed this information as documented for accuracy and performed all elements of history taking, and edited the record as necessary. ROS: SEE HPI PE: GENERAL: well-appearing, in no acute distress LUNGS: Normal inspiratory effort DIGITAL PROJECT MANAGER: Small amount yellow mucus discharge, cervix [...] Medical Decision Making Level: 3 - Low [facility] 07-04-2021 Note HNO ID: [id number] Author: 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 APRN.SOFTWARE PACKAGER Service: ? 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 Avoid scratching, scented pads/tampons/toilet papers, cranberry juice, bubble baths, and intercourse until symptoms are relieved. NO douching. If you shave, use a new razor at least twice monthly. 5) Follow up one year or sooner as needed 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 APRN.JUSTINE [facility] 08-09-2017 History of Past i llness Narrative Problem Noted Date Resolved Date NO SHOW 08/09/2017 08/09/2017 documented as of this encounter (statuses as of 02/03/2022) [facility] History of Past illness Narrative* Problem Noted Date Resolved Date NO SHOW 08/09/2017 08/09/2017 documented as of this encounter (statuses as of 03/19/2022) [facility] History of Past illness Narrative* Problem Noted Date Resolved Date NO SHOW 08/09/2017 08/09/2017 documented as of this encounter (statuses as of 03/24/2022) [facility] No data available for this section [facility] Diagnosis Acute vaginitis- Primary Vaginitis and vulvovaginitis, unspecified [facility] Diagnosis Bleeding in early - Primary Unspecified hemorrhage in early , unspecified as to episode of care [facility] ([facility])- Primary Other convulsions documented in this encounter [facility] Work Phone: Evaluation noteNo assessment information available [facility] Work Phone: History of Present illness Narrative* The patient states she has been doing well with her blood pressure control since the last visit. She has no comorbid illnesses. She has no significant interval events. * Symptoms: The patient is currently asymptomatic. * Less anxiety lately. Broke up with her boyfriend. * Working in [employer] at the [employer]. * BP is much improved on lisinopril. * Saw gyne for discharge. * was told she had BV and chlamydia. * took antibiotics, got better for a few weeks and now she is having discharge again and odor. no pelvic pain. [facility] Work Phone: History of Present illness Narrative* The patient states she has been doing well with her blood pressure control since the last visit. She has no comorbid illnesses. She has no significant interval events. * Symptoms: The patient is currently asymptomatic. * Less anxiety lately. Broke up with her boyfriend. 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 * BP is much improved on lisinopril. * Saw gyne for discharge. * was told she had BV and chlamydia. * took antibiotics, got better for a few weeks and now she is having discharge again and odor. no pelvic pain. [facility] Work Phone: Hospital Discharge instructions No data available for this section [facility] No data available for this section [facility] Summary Purpose Family History Mother Name [...] Documents on File Type Date Recorded Patient Relay Assembler Expl anation ACP-Advance Directive ACP-Power of Fishing Rod Assembler Documents on File Type Date Recorded Patient Relay Assembler Expl anation ACP-Advance Directive ACP-Power of Fishing Rod Assembler Documents on File Type Date Recorded Patient Relay Assembler Expl anation Advance Directive(s) 11/30/2015 2:19 PM Advance Directive Response Recorded Date/ Time Advance Directives No November 08, 3:18pm Reason for Referral Status Reason Specialty Diagnoses / Procedures Referre d By Contact Referred To Contact Open Radiology Diagnoses Nonintractable generalized idiopathic epilepsy without status epilepticus (HCC) Procedures MRI BRAIN W WO CONTRAST Spike Garcia MD [address] [address] Assessments Diagnosis Nonintractable generalized idiopathic epilepsy without status epilepticus (HCC) Diagnosis Seizure (HCC) Other convulsions Discharge Instructions * Attachments The following attachments cannot be sent through Care Everywhere. * Seizure (Bulgarian) documented in this encounter Chief Complaint and Reason for Visit Chief Complaint Nausea, diarrhea Additional Source Comments INFORMATION SOURCE (unrecogn ized section and content) DATE CREATED AUTHOR 01/11/2018 [facility] DATE CREATED AUTHOR AUTHOR'S ORGANIZ ATION 04/19/2020 [facility] DATE CREATED AUTHOR AUTHOR'S ORGANIZ ATION [facility] DATE CREATED AUTHOR AUTHOR'S ORGANIZ ATION 12/29/2020 [facility] DATE CREATED AUTHOR AUTHOR'S ORGANIZ ATION 04/14/2022 [facility] DATE CREATED AUTHOR AUTHOR'S ORGANIZ ATION 04/20/2022 [facility] DATE CREATED AUTHOR AUTHOR'S ORGANIZ ATION 08/11/2022 [facility] DATE CREATED AUTHOR AUTHOR'S ORGANIZ ATION 11/29/2022 [facility] DATE CREATED AUTHOR AUTHOR'S ORGANIZ ATION 12/27/2022 [facility] DATE CREATED AUTHOR AUTHOR'S ORGANIZ ATION 05/02/2023 [facility] DATE CREATED AUTHOR AUTHOR'S ORGANIZ ATION 08/12/2023 [facility] EPIC DATE CREATED AUTHOR AUTHOR'S ORGANIZ ATION 09/07/2023 [facility] Reason for Visit (unrecogniz ed section and content) Status Reason Specialty Diagnoses / Procedures Referre d By Contact Referred To Contact Closed EEG Diagnoses Generalized idiopathic epilepsy and epileptic syndromes, not intractable, without status epilepticus Procedures EEG 16+ CHANNEL TELEMTERY 24HR Spike Garcia MD [address] [facility] [address] [place] [address] [address] [address] [place] [address] Status Reason Specialty Diagnoses / Procedures Referre d By Contact Referred To Contact Closed Radiology Diagnoses Generalized idiopathic epilepsy and epileptic syndromes, not intractable, without status epilepticus Procedures MRI-BRAIN WO & W CONTRAST Spike Garcia MD [address] [facility] [address] [place] [address] [facility] Mri [address] [place] [address] Reason Comments Seizures Seizure like activit y [...] or prosecute any alcohol or drug abuse patient.[facility] the event this information is protected by the Federal Confidentiality of Alcohol and Drug Abuse Patient Records regulations: The Federal rules restrict any use of the information to criminally investigate or prosecute any alcohol or drug abuse patient.[facility] Hospital[facility] the event this information is protected by the Federal Confidentiality of Alcohol and Drug Abuse Patient Records regulations: The Federal rules restrict any use of the information to criminally investigate or prosecute any alcohol or drug abuse patient.[facility] Care Teams (unrecognized sec tion and content) Cover Mat Machine Operator Relationship Specialty Start Date End Date Koffi Uriarte MD PCP - General Family Practice 08/17/16 Cover Mat Machine Operator Relationship Specialty Start Date End Date Koffi Uriarte MD PCP - General Family Practice 08/17/16 Cover Mat Machine Operator Relationship Specialty Start [place] [address] [place] [address] PCP - General 08/14/20 [place] [address] [place] [address] PCP - MMO ACO PCP 02/16/23 Team [...] BE BASED ON THE PRIMARY CLINICAL RECORDS. [facility] [employer] [facility]. provides no warranty or guarantee of the accuracy or completeness of information in this document.
--- NOTE | 2023-11-19 19:19 | ECG_ITS ---
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
--- NOTE | 2023-11-19 19:20 | XR_ITS ---
The [address] [address] Patient Name: PRINCESS CANTU MRN: [id number] date: 1995 Sex: F Assigned Patient Location: ED.MAIN Current Patient Location: ER Accession/Order Number: [id number] Exam Date: 11/19/2023 19:56 Report Date: 11/19/2023 20:05 At the request of: JAIME WILL Procedure: XR chest 1V EXAM: XR chest 1V at 1954 hours HISTORY: palpitations COMPARISON: 09/03/2014 TECHNIQUE: AP upright portable chest x-ray FINDINGS: The heart is not enlarged and the vasculature is not distended. No acute infiltrate, effusion or pneumothorax is identified. The osseous structures are grossly intact. XR/XR chest 1V IMPRESSION: No acute infiltrate or evidence of cardiac decompensation. The overall appearance of the chest has not changed significantly. Electronically authenticated by: CHEMA CARRERA Date: 11/19/2023 20:05
--- NOTE | 2023-11-19 19:28 | ED_ITS ---
HPI - Arrhythmia/Palpitations General Chief Complaint: Arrhythmia/Palpitations Stated Complaint: Arrhythmia/Palpitations Time Seen by Provider: 11/19/23 19:12 Source: patient Mode of arrival: walk-in Limitations: no limitations History of Present Illness HPI narrative: 28-year-old female presents for palpitations. She is occasionally feeling that her heart is skipping a beat. She was here few days ago and had evaluation. It continues and she states it is happening more frequently. Sometimes she feels dizzy but there is been no syncope. No fever or cough. Related Data Home Medications ?Medication ?Instructions ?Recorded ?Confirmed labetalol 200 mg tablet 200 mg PO BID 07/21/23 11/19/23 lamotrigine 100 mg tablet 100 mg PO Q12H 07/21/23 11/19/23 Allergies Allergy/AdvReac Type Severity Reaction Status Date / Time No Known Drug Allergies Allergy Verified 11/19/23 18:48 Review of Systems ROS Narrative A ten point review of systems is negative except as noted above. Exam Narrative Exam Narrative: Nurses note and vital signs reviewed and patient is not hypoxic. General: The patient appears well and in no apparent distress. Patient is resting comfortably on cart. Skin: Warm, dry, no pallor noted. There is no rash noted. Head: Normocephalic, atraumatic Eye: Normal conjunctiva, no drainage Ears, Nose, Mouth, and Throat: oral mucosa is moist. Nares patent. Cardiovascular: Regular Rate and Rhythm Respiratory: Patient is in no distress, no accessory muscle use, lungs are clear to auscultation, no wheezing, rales or rhonchi Back: non-tender GI: Soft and nontender Musculoskeletal: The patient has no evidence of calf tenderness, no pitting edema, symmetrical pulses noted bilaterally Neurological: A&O, normal speech Psychiatric: Cooperative Constitutional Vital Signs, click to edit/add: Last Vital Signs Temp 98.3 F 11/19/23 19:44 Pulse 64 11/19/23 21:01 Resp 16 11/19/23 21:01 BP 133/83 11/19/23 21:30 Pulse Ox 100 11/19/23 21:01 O2 Del Method Room Air 11/19/23 18:45 Course Vital Signs Vital signs: Vital Signs Pulse Oximetry 99 11/19/23 18:42 Temperature 98.3 F 11/19/23 19:44 Pulse Rate 64 11/19/23 21:01 Respiratory Rate 16 11/19/23 21:01 Blood Pressure 133/83 11/19/23 21:30 Pulse Oximetry 100 11/19/23 21:01 Oxygen Delivery Method Room Air 11/19/23 18:45 MDM - Arrhythmia/Palpitations MDM Narrative Medical decision making narrative: The patient has had PVCs on the monitor. Workup again is negative including electrolytes. EKG shows sinus rhythm. She is referred to cardiology for appropriate follow-up. Treatment diagnosis and follow-up were discussed with the patient. Differential Diagnosis Differential diagnosis: Likely palpitations, artial fibrillation, artial flutter, ventricular premature beats and supraventricular tachycardia Lab Data Attestation: I reviewed the patient's lab results. Labs: Lab Results 11/19/23 Range/Units 19:42 WBC 7.1 (4.0-11.0) 10^3/uL RBC 4.15 L (4.20-5.40) 10^6/uL Hgb 11.7 L (12.0-16.0) g/dL Hct 36.7 (36.0-48.0) % MCV 88.4 (81.0-99.0) fL MCH 28.2 (26.7-34.0) pg MCHC 31.9 (29.9-35.2) g/dL RDW 13.4 (11.0-15.0) % Plt Count 261 (150-450) 10^3/uL MPV 9.1 L (9.5-13.5) fL Neut % (Auto) 51.3 (43.0-75.0) % Lymph % (Auto) 39.1 (20.5-60.0) % [place] % (Auto) 9.0 (1.7-12.0) % Eos % (Auto) 0.0 L (0.9-7.0) % Baso % (Auto) 0.3 (0.2-2.0) % Neut # (Auto) 3.7 (1.4-6.5) 10^3/uL Lymph # (Auto) 2.8 (1.2-3.8) 10^3/uL [place] # (Auto) 0.6 (0.3-0.8) 10^3/uL Eos # (Auto) 0.0 (0.0-0.7) 10^3/uL Baso # (Auto) 0.0 (0.0-0.1) 10^3/uL Abs Immat Gran (auto) 0.02 (0.00-0.03) 10^3/uL Imm/Tot Granulo (auto) 0.3 (0.0-0.5) % Sodium 139 (136-145) mmol/L Potassium 4.3 (3.5-5.1) mmol/L Chloride 104 (98-107) mmol/L Carbon Dioxide 28.1 (21.0-32.0) mmol/L Anion Gap 11.2 BUN 12.0 (7.0-18.0) mg/dL Creatinine 0.80 (0.55-1.02) mg/dL Est GFR ( Amer) >60 (>=60) Est GFR (Non-Af Amer) >60 (>=60) BUN/Creatinine Ratio 15.0 Glucose 85 (74-106) mg/dL Calcium 9.8 (8.5-10.1) mg/dL Magnesium 2.0 (1.8-2.4) mg/dL Troponin I High Sens <4.0 L (4.0-51.3) pg/mL Imaging Data Chest x-ray: Radiologist's impression: ITS Impressions Chest X-Ray 11/19/23 19:20 IMPRESSION: No acute infiltrate or evidence of cardiac decompensation. The overall appearance of the chest has not changed significantly. Electronically authenticated by: CHEMA CARRERA Date: 11/19/2023 20:05 ECG Data Attestation: I personally reviewed and interpreted this ECG as follows: (EKG on my interpretation shows sinus rhythm with a rate of 58 and sinus arrhythmia) Discharge Plan Discharge Stand Alone Forms: Portal Instructions Chief Complaint: Arrhythmia/Palpitations Clinical Impression: Ventricular premature beats Patient Disposition: Home, Self-Care Time of Disposition Decision: 22:05 Condition: Good Mode of Transportation: Private Vehicle Prescriptions / Home Meds: No Action lamotrigine 100 mg tablet 100 mg PO Q12H labetalol 200 mg tablet 200 mg PO BID Print Language: Iranian Instructions: Premature Ventricular Contractions (ED) Additional Instructions: Follow-up with Dr. Villeda, call on Wednesday for appointment Referrals: West,Norma S, HOME PERFORMANCE LABORER [Primary Care Provider] - 1 week Gerald Villeda MD [Physician] - 1 week
[2023-11-19 19:50] LABS: Basophils Percent Auto 0.3 % (0.2-2.0); Hematocrit 36.7 % (36.0-48.0); Hemoglobin 11.7 g/dL (12.0-16.0); Immature Granulocytes Abs Auto 0.02 10^3/uL (0.00-0.03); Immature Granulocytes Pct Auto 0.3 % (0.0-0.5); Lymphocytes Absolute Auto 2.8 10^3/uL (1.2-3.8); Lymphocytes Percent Auto 39.1 % (20.5-60.0); Mean Corpuscular HGB Conc 31.9 g/dL (29.9-35.2); Mean Corpuscular Hemoglobin 28.2 pg (26.7-34.0); Mean Corpuscular Volume 88.4 fL (81.0-99.0); Mean Platelet Volume 9.1 fL (9.5-13.5); Monocytes Absolute Auto 0.6 10^3/uL (0.3-0.8); Neutrophils Absolute Auto 3.7 10^3/uL (1.4-6.5); Neutrophils Percent Auto 51.3 % (43.0-75.0); Platelet Count 261 10^3/uL (150-450); Red Blood Count 4.15 10^6/uL (4.20-5.40); Red Cell Distribution Width 13.4 % (11.0-15.0); White Blood Count 7.1 10^3/uL (4.0-11.0)
[2023-11-19 19:59] LABS: Anion Gap 11.2; Calcium 9.8 mg/dL (8.5-10.1); Carbon Dioxide 28.1 mmol/L (21.0-32.0); Chloride 104 mmol/L (98-107); Estimated GFR (African America >60 (>=60); Estimated GFR (Non-African Ame >60 (>=60); Glucose 85 mg/dL (74-106); Potassium 4.3 mmol/L (3.5-5.1); Sodium 139 mmol/L (136-145)
[2023-11-19 20:06] LABS: Troponin I High Sensitivity <4.0 pg/mL (4.0-51.3)
== END 2023-11-19 22:44 | disposition home or self-care (01) ==
PROVIDERS: Emergency Provider Emergency Medicine; PCP Nurse Practitioner
DX: I49.3 Ventricular premature depolarization (principal); Z79.899 Other long term (current) drug therapy
CPT/HCPCS: 36415; 71045; 80048; 83735; 84484; 85025; 93005; 99285

== ENCOUNTER 2025-01-22 14:06 | Outpatient (OUT) | payer OTHER, SELFPAY ==
--- OUTSIDE RECORDS SUMMARY | 2025-01-12 10:30 | XMS_ITS | Encounter Summary ---
Author Organization [facility] Address [address] [place] [address] Care Team Providers Care Hospice Nurse Name Role Phone Suzanne Uriarte MD Primary Care Provider [phone] Encounter Details Date Type Department Care Team (Late st Contact Info) Description 01/12/2025 10:30 AM EDT Ancillary Procedure [facility] [address] [place] [address] Missed menses Social History Tobacco Use Types Packs/Day Years Used Date Smoking Tobacco: Never Assessed Estimated Date of Delivery Comme nts Yes 08/20/2025 Based on last me nstrual period of 11/13/2024 Sex and Gender Information Value Date Recorded Sex Assigned at Female 12/21/2022 8:22 PM EDT Legal Sex Female 11:40 PM EDT Gender Identity Female 12/21/2022 8:22 PM EDT Sexual Orientation Straight 12/21/2022 8: 22 PM EDT documented as of this encounter Plan of Treatment Upcoming Encounters Date Type Department Care Team (Late st Contact Info) Description 02/07/2025 3:10 PM EDT Routine [facility] [address] [place] [address] Willis Chen, DO [facility] [address] [place], [place] [id number] documented as of this encounter Goals Goal Patient Goal Type Associated Problems Recent Progress Patient-Stated? Author Reminders Care Plan OB Reminders No Open Scheduling, Background documented as of this encounter Procedures Procedure Name Priority Date/Time Associated Diagnosis Comments US OB TRANSVAGINAL Routine 01/12/2025 10 :57 AM EDT Missed menses documented in this encounter Results * US OB transvaginal (01/12/2025 10:57 AM EDT) Anatomical Region Laterality Modality Body Ultrasound 01/14/2025 10:0 6 PM EDT Narrative 01/14/2025 10:06 PM EDT EXAM: US OB TRANSVAGINAL HISTORY: Dating. COMPARISON: None available. TECHNIQUE: Two-dimensional transvaginal grayscale ultrasound imaging of the pelvis was performed. Color Doppler evaluation of the ovaries was also performed. FINDINGS: The uterus demonstrates a normal homogeneous echotexture. The cervix measures 4.1 cm in length and the cervical os is closed. The right ovary measures 3.3 x 2.5 x 2.9 cm and demonstrates a normal echotexture. There is normal color Doppler flow. There is a presumed corpus luteal cyst visualized. The left ovary measures 2.9 x 1.6 x 2.9 cm and demonstrates a normal echotexture. There is normal color Doppler flow. No fluid is present within the cul-de-sac. There is a single, live intrauterine gestation identified with a heart rate of 156 beats per minute and a crown-rump length measurement of 1.7 cm, correlating to a gestational age of 8 weeks 1 days (+/- 5 days). There is no subchorionic hemorrhage visualized. A yolk sac is visualized. IMPRESSION: 1. Single, live intrauterine gestation 8 weeks, 4 days by LMP. Today's ultrasound measurements correlate with a gestational age of 8 weeks 1 days (+/- 5 days). RAS by today's ultrasound is 08/23/2025. 2. Normal color Doppler evaluation of the bilateral ovaries. Interpreted by: Electronically signed by ROSENDA TORRES II, MD, PHD at 14-Jan-2025 10:04:37 PM [facility] Procedure Note Rosenda Torres MD - 01/14/2025 EXAM: US OB TRANSVAGINAL HISTORY: Dating. COMPARISON: None available. TECHNIQUE: Two-dimensional transvaginal grayscale ultrasound imaging ofthe pelvis was performed. Color Doppler evaluation of the ovaries was alsoperformed. FINDINGS: The uterus demonstrates a normal homogeneous echotexture. The cervixmeasures 4.1 cm in length and the cervical os is closed. The right ovary measures 3.3 x 2.5 x 2.9 cm and demonstrates a normalechotexture. There is normal color Doppler flow. There is a presumedcorpus luteal cyst visualized. The left ovary measures 2.9 x 1.6 x 2.9 cm and demonstrates a normalechotexture. There is normal color Doppler flow. No fluid is present within the cul-de-sac. There is a single, live intrauterine gestation identified with a fetalheart rate of 156 beats per minute and a crown-rump length measurement of1.7 cm, correlating to a gestational age of 8 weeks 1 days (+/- 5 days).There is no subchorionic hemorrhage visualized. A yolk sac isvisualized. IMPRESSION: 1. Single, live intrauterine gestation 8 weeks, 4 days by LMP. Today'sultrasound measurements correlate with a gestational age of 8 weeks 1 days(+/- 5 days). RAS by today's ultrasound is 08/23/2025. 2. Normal color Doppler evaluation of the bilateral ovaries. Interpreted by: Electronically signed by ROSENDA TORRES II, MD, PHD 10:04:37 PM [facility] us Willis April DO IM OB US PROCEDURES Final Resul t documented in this encounter Visit Diagnoses Diagnosis Missed menses documented in this encounter Additional Health Concerns Active Problems Noted Date Diagnosed Date OB Reminders 01/14/2023 documented as of this encounter Care Teams Hospice Nurse Relationship Specialty Start [place] [id number] [place] [address] PCP - General Family Medicine 01/14/23 documented as of this encounter
--- OUTSIDE RECORDS SUMMARY | 2025-01-12 10:58 | XMS_ITS ---
Author Name Auto Generated Organization OHIP Care Team Providers Care Rn Rehab Name Role Phone NEGRO CALDERON Attending Unavailable KOFFI WINTERS Primary Care UnavailKOFFI Aguilera Attending UnavailKOFFI Aguilera Primary Care Unavailmary e KEITH HUGHES Primary Care Unavailable Spenser COLLINS Attending Unavailable Vinita PABLO Attending Unavailable KEITH HUGHES Primary Care Unavailable PROBLEMS DATE TYPE CONDITION / CODE ATTENDING STATUS [facility] 09/12/2024 Admitting Diagnosis Other fatigue / R53.83(ICD-10) KOFFI WINTERS [facility] 10/02/2022 Admitting Diagnosis Essential (primary) hypertension / I10(ICD-10) KOFFI WINTERS [facility] 10/02/2022 Admitting Diagnosis Deficiency of other specified B group vitamins / E53.8(ICD-10) KOFFI WINTERS [facility] 09/12/2024 Admitting Diagnosis Encounter for general adult medical examination without abnormal findings / Z00.00(ICD-10) KOFFI WINTERS [facility] 09/12/2024 Admitting Diagnosis Vitamin D deficiency, unspecified / E55.9(ICD-10) KOFFI WINTERS [facility] 10/02/2022 Admitting Diagnosis Unspecified convulsions (Multi) / R56.9(ICD-10) NEGRO CALDERON [facility] PROCEDURES No Procedure Records Found RESULTS US OB TRANSVAGINAL Observed: 01/12/2025 10:20 AM Status: F Source: [facility] EPIC Order Comment: US OB TRANSVA GINAL No LMP recorded. EXAM: US OB TRANSVAGINAL HISTORY: Dating. COMPARISON: [...] II, MD, PHD at 14-Jan-2025 10:04:37 PM [facility] LIPID PANEL, STANDARD Collected: 09/12/2024 1:43 PM Status: F Source: [facility] Order Comment: FASTING:YES FASTING: YES TYPE CODE TESTS RESULT OUT OF RANGE REFERENCE UNITS LAB [id number] CHOLESTEROL, TOTAL 167 Normal <200 mg/dL LAB [id number] HDL CHOLESTEROL 52 Normal > OR = 50 mg/dL LAB [id number] TRIGLYCERIDES 103 Normal <150 mg/dL LAB [id number] LDL-CHOLESTEROL 95 Normal mg/dL (calc) Result Comment: Reference ra nge: <100 Desirable range <100 mg/dL for primary prevention; <70 mg/dL for patients with CHD or diabetic patients with > or = 2 CHD risk factors. LDL-C is now calculated using the Dean calculation, which is a validated novel method providing better accuracy than the Friedewald equation in the estimation of LDL-C. Tres RODRIGEZ et al. STEPHANIE. 2013;310(19): 4147-2923 (http://education.SkuRun.Virtugo Software/faq/DCU299) LAB [id number] CHOL/HDLC RATIO 3.2 Normal <5.0 (calc) LAB [id number] NON HDL CHOLESTEROL 115 Normal <130 mg/dL (calc) Result Comment: For patients with diabetes plus 1 major ASCVD risk factor, treating to a non-HDL-C goal of <100 mg/dL (LDL-C of <70 mg/dL) is considered a therapeutic option. Performed By: #### 7600, 173 06, 26500, 927, 3561, 23516 #### [facility] [address], [address] [place] [address] Shank Stitcher: Brandon Camara MD COMPREHENSIVE METABOLIC PANE L W/ANION GAP Collected: 09/12/2024 1:43 PM Status: F Source: [facility] TYPE CODE TESTS RESULT OUT OF RANGE REFERENCE UNITS LAB [id number] GLUCOSE 90 Normal 65-99 mg/dL Result Comment: Fasting reference interval LAB [id number] UREA NITROGEN (BUN) 7 Normal 7-25 mg/dL LAB [id number] CREATININE 0.86 Normal 0.50-0.97 mg/dL LAB [id number] EGFR 93 Normal > OR = 60 mL/min/1 .73m2 LAB [id number] SODIUM 137 Normal 135-146 mmol/L LAB [id number] POTASSIUM 4.5 Normal 3.5-5.3 mmol/L LAB [id number] CHLORIDE 102 Normal 98-110 mmol/L LAB [id number] CARBON DIOXIDE 28 Normal 20-32 mmol/L LAB [id number] ELECTROLYTE BALANCE 7 Normal 7-17 mmol/L (calc) LAB [id number] CALCIUM 9.6 Normal 8.6-10.2 mg/dL LAB [id number] PROTEIN, TOTAL 7.4 Normal 6.1-8.1 g/dL LAB [id number] ALBUMIN 4.8 Normal 3.6-5.1 g/dL LAB [id number] BILIRUBIN, TOTAL 0.4 Normal 0.2-1.2 mg/dL LAB [id number] ALKALINE PHOSPHATASE 60 Normal 31-125 U/L LAB [id number] AST 12 Normal 10-30 U/L LAB [id number] ALT 14 Normal 6-29 U/L Performed By: #### 7600, 173 06, 96447, 927, 1759, 34475 #### [facility] [place] [address] [facility], [address] [place] [address] Shank Stitcher: Brandon Camara MD CBC (H/H, RBC, INDICES, WBC, PLT) Collected: 09/12/2024 1:43 PM Status: F Source: [facility] TYPE CODE TESTS RESULT OUT OF RANGE REFERENCE UNITS LAB [id number] WHITE BLOOD CELL COUNT 5.5 Normal 3.8-10.8 Thousand /uL LAB [id number] RED BLOOD CELL COUNT 4.47 Normal 3.80-5.10 Million/ uL LAB [id number] HEMOGLOBIN 12.7 Normal 11.7-15.5 g/dL LAB [id number] HEMATOCRIT 38.8 Normal 35.0-45.0 % LAB [id number] MCV 86.8 Normal 80.0-100.0 fL LAB [id number] MCH 28.4 Normal 27.0-33.0 pg LAB [id number] MCHC 32.7 Normal 32.0-36.0 g/dL Result Comment: For adults, a slight decrease in the calculated MCHC value (in the range of 30 to 32 g/dL) is most likely not clinically significant; however, it should be interpreted with caution in correlation with other red cell parameters and the patient's clinical condition. LAB [id number] RDW 12.3 Normal 11.0-15.0 % LAB [id number] PLATELET COUNT 260 Normal 140-400 Thousand /uL LAB [id number] MPV 9.0 Normal 7.5-12.5 fL Performed By: #### 7600, 173 06, 18666, 927, 1759, 01767 #### [facility] [address], [address] [place], [place] [address] Shank Stitcher: Brandon Camara MD VITAMIN B12 Collected: 1:43 PM Status: F Source: [facility] TYPE CODE TESTS RESULT OUT OF RANGE REFERENCE UNITS LAB [id number] VITAMIN B12 402 Normal 200-1100 pg/mL Performed By: #### 7600, 173 06, 61177, 927, 1759, 37242 #### [facility] [address], [address] [place], [place] [address] Shank Stitcher: Brandon Camara MD TSH W/REFLEX TO FT4 Collected: 09/12/19 1:43 PM Status: F Source: [facility] TYPE CODE TESTS RESULT OUT OF RANGE REFERENCE UNITS LAB [id number] TSH W/REFLEX TO FT4 2.63 Normal mIU/L Result Comment: Reference Ra nge > or = 20 Years 0.40-4.50 Ranges First trimester 0.26-2.66 Second trimester 0.55-2.73 Third trimester 0.43-2.91 Performed By: #### 7600, 173 06, 18376, 927, 1759, 18008 #### [facility] [address], [address] [place], [place] [address] Shank Stitcher: Brandon Camara MD VITAMIN D,25-OH,TOTAL,IA Collected: 1:43 PM Status: F Source: [facility] TYPE CODE TESTS RESULT OUT OF RANGE REFERENCE UNITS LAB [id number] VITAMIN D,25-OH,TOT AL,IA 26 Low 30-100 ng/mL Result Comment: Vitamin D St atus 25-OH Vitamin D: Deficiency: <20 ng/mL Insufficiency: 20 - 29 ng/mL Optimal: > or = 30 ng/mL For 25-OH Vitamin D testing on patients on D2-supplementation and patients for whom quantitation of D2 and D3 fractions is required, the QuestAssureD(TM) 25-OH VIT D, (D2,D3), LC/MS/MS is recommended: order code 41071 (patients >2yrs). See Note 1 Note 1 For additional information, please refer to http://education.Wizeline/faq/AKW278 (This link is being provided for informational/ educational purposes only.) Performed By: #### 7600, 173 06, 72422, 927, 1759, 58089 #### [facility], [address] [place] [address] Shank Stitcher: Brandon Camara MD VARIC IGG Collected: 10:45 AM Status: F Source: [facility] TYPE CODE TESTS RESULT OUT OF RANGE REFERENCE UNITS LAB 5403-1([facility]) VARICELLA ZOSTER VIRUS AB.IGG:ACNC:P T:SER:QN:IA 1518 Unknown Immune >165 Result Comment: Negative <13 5 Equivocal 135 - 165 Positive >165 A positive result generally indicates exposure to the pathogen or administration of specific immunoglobulins, but it is not indication of active infection or stage of disease. Performed at: [facility] [id number] PhD Leeanne Garcia Performed By: #### [id number] #### [facility] [address] [place] [address] MEASLES/MUMPS/RUBELLA IMMUNITY Collecte d: 03/30/2024 10:45 AM Status: F Source: [facility] TYPE CODE TESTS RESULT OUT OF RANGE REFERENCE UNITS LAB 5334-8([facility]) RUBELLA VIRUS AB.IGG:ACN C:PT:SER/P LAS:QN:IA 1.07 Unknown Immune >0.99 Result Comment: Non-immune < 0.90 Equivocal 0.90 - 0.99 Immune >0.99 LAB 5244-9([facility]) MEASLES VIRUS AB.IGG:ACN C:PT:SER:Q N:IA 206.0 Unknown Immune >16.4 A unit/mL Result Comment: Negative <13 .5 Equivocal 13.5 - 16.4 Positive >16.4 Presence of antibodies to Rubeola is presumptive evidence of immunity except when acute infection is suspected. LAB 72582-7([facility] ) MUMPS VIRUS AB.IGG:ACN C:PT:SER:Q N:IA 38.5 Unknown Immune >10.9 A unit/mL Result Comment: Negative <9. 0 Equivocal 9.0 - 10.9 Positive >10.9 A positive result generally indicates past exposure to Mumps virus or previous vaccination. Performed at: [address] [id number] PhD Leeanne Garcia Performed By: #### [id number] #### [facility] [address] [place] [address] HEP BS AB Collected: 10:45 AM Status: F Source: [facility] TYPE CODE TESTS RESULT OUT OF RANGE REFERENCE UNITS LAB 02978-1([facility]) HEPATITIS B VIRUS SURFACE AB:PRTHR:PT:S ER:ORD: Reactive Unknown Result Comment: Non Reactive : Not immune to HBV infection. Equivocal: Unable to determine if anti-HBs is present at levels consistent with immunity. Reactive: Anti-HBs concentration detected at greater than 10 mIU/mL. Individual is considered to be immune to infection with HBV. Performed at: [address] [id number] PhD Leeanne Garcia Performed By: #### [id number] # ### [facility] [address] [place] [address] QUANTIFERON-TB PLUS (CLIENT INCUBATED) Collected: 03/30/2024 10:45 AM Status: F Source: [facility] TYPE CODE TESTS RESULT OUT OF RANGE REFERENCE UNITS LAB 8251-1([facility]) SERVICE COMMENT:IMP:PT:X XX:NOM: Comment Unknown Result Comment: QuantiFERON- TB Gold Plus is a qualitative indirect test for M tuberculosis infection (including disease) and is intended for use in conjunction with risk assessment, radiography, and other medical and diagnostic evaluations. The QuantiFERON-TB Gold Plus result is determined by subtracting the Nil value from either TB antigen (Ag) value. The Mitogen tube serves as a control for the test. LAB 80470-2([facility] ) MYCOBACTERIUM TUBERCULOSIS STIMULATED GAMMA INTERFERON RELEASE BY CD4+ T-CELLS^^CORRECT ED FOR BACKGROUND:ACNC: PT:BLD:QN: 0.03 Unknown Internat ional_Un it/mL LAB 26399-7(LOINC ) MYCOBACTERIUM TUBERCULOSIS STIMULATED GAMMA INTERFERON RELEASE BY CD4+ AND CD8+ T-CELLS^^CORRECT ED FOR BACKGROUND:ACNC: PT:BLD:QN: 0.02 Unknown Internat ional_Un it/mL LAB 46201-9(LOINC ) GAMMA INTERFERON BACKGROUND:ACNC: PT:BLD:QN:IA 0.01 Unknown Internat ional_Un it/mL LAB 44279-0(LOINC ) MITOGEN STIMULATED GAMMA INTERFERON^^ESTEBAN ECTED FOR BACKGROUND:ACNC: PT:BLD:QN: >10.00 Unknown Internat ional_Un it/mL LAB 20186-2(LOINC ) MYCOBACTERIUM TUBERCULOSIS STIMULATED GAMMA INTERFERON:IMP:P T:BLD:ORD: Negative Unknown Negative Result Comment: No response to M tuberculosis antigens detected. Infection with M tuberculosis is unlikely, but high risk individuals should be considered for additional testing (ATS/IDSA/CDC Clinical Practice Guidelines, 2017). The reference range is an Antigen minus Nil result of <0.35 IU/mL. The specimen received for QuantiFERON testing was incubated by the ordering institution. Specific procedures outlined in our Directory of Services and in the package insert for the QuantiFERON Gold (In Tube) test must be followed to enable for proper stimulation of cells for the production of interferon gamma. Chemiluminescence immunoassay methodology Performed at: [facility] [address] [id number] PhD Leeanne Garcia Performed By: #### [id number] #### [facility] [address] [place] [address] ALLERGIES DATE TYPE / CODE NAME / CODE REACTION SEVERITY SOURCE SYSTEMIC/[id number] 6(SNOMED CT) NO KNOWN ALLERGIES [facility] Ambulatory /[id number](SNOM ED CT) No Known Medication Allergies [facility] ENCOUNTERS ADMIT/DISCHARGE ACCOUNT NUMBER ADMITTING ENCOUNTER CLASS LOCATION SOURCE 01/12/2025/ 5 [id number] Ambulatory [facility] OB [facility] EPIC 01/12/2025/ 5 [id number] Ambulatory Building:[facility] OB [facility] 09/12/2024/ 5 [id number] Ambulatory Building:[facility] alkHPC1 [facility] 05/03/2024/ 4 [id number] Ambulatory Building:CHRISTIANO [id number] [facility] 04/13/2024/ 4 [id number] [facility] [id number] Ambulatory [facility]ALEXY MORRISON [facility] PAYERS ENCOUNTER GUARANTOR PAYER SUBSCRIBER SOURCE 01/12/2025 PRINCESS HANKINSEDOB: [place], [place] [address]Tur: () Primary Insurance:[facility] Number: [id number] Date:2024-07-19 JOHNATHAN HANKINSEDOB: [id number] [place] [address] [facility] 01/12/2025 PRINCESS HANKINSEDOB: [place], [place] [address]Tgz: () Primary Insurance:[facility] Number: [id number] Date:2024-07-19 JOHNATHAN SPENCEROB: [id number] [place] [address] [facility] EPIC 09/12/2024 PRINCESS HANKINSEDOB: [place], [place] [address]Obo: () Primary Insurance[facility] Number: [id number] Date:2024-04-10 PRINCESS HANKINSEDOB: [id number] [address], [place] [address]Jhc: () [facility] 09/12/2024 Secondary Insurance:[facility] Number: [id number] Date:2023-07-19 JOHNATHAN SPENCEROB: [id number] [place], [place] [address]Bqa: (HP) [facility] 05/03/2024 PRINCESS HANKINSEDOB: [place] [address]Xlc: (HP) Primary Insurance:[facility] Number: [id number] Date:2023-07-19 JOHNATHAN HANKINSEDOB: [id number] [address] [place], [place] [address]Jqw: (HP) [facility] 04/13/2024 PRINCESS HANKINSEDOB: [address] STRICKLANDTel: [phone]~~[phone] (HP) (WP) [facility] Number: [id number] Date:1421-56-38CC [address] [place], [place] [address]WP: PRINCESS Alison [facility] 03/30/2024 PRINCESS HANKINSEDOB: [address] STTel: [phone]~~[phone] (HP) (WP) Primary Insurance:[employer] M[employer]Policy Number: [id number] Date:3909-35-11QP [address] [place] [address]JF: PRINCESS Alison [facility]
--- OUTSIDE RECORDS SUMMARY | 2025-01-12 11:00 | XMS_ITS | Encounter Summary ---
Author Organization [facility] Address [address] [place] [address] Care Team Providers Care Lens Grinding Machine Operator Name Role Phone Suzanne Uriarte MD Primary Care Provider [phone]- [phone] Reason for Visit * Reason Comments Amenorrhea Encounter Details Date Type Department Care Team (Late st Contact Info) Description 01/12/2025 11:00 AM EDT Initial [facility] [address] [place] [address] [place]: 8w4d Social History Tobacco Use Types Packs/Day Years [...] PM EDT documented as of this encounter Last Filed Vital Signs Vital Sign Reading Time Taken Comments Blood Pressure - - Pulse - - Temperature - - Respiratory Rate - - Oxygen Saturation - - Inhaled Oxygen Concentration - - Weight 81.6 kg (179 lb 12.8 oz) 025 11:56 AM EDT Height - - Body Mass Index 26.55 11/16/2022 12:00 PM EDT documented in this encounter Plan of Treatment Upcoming Encounters Date Type Department Care Team (Late st Contact Info) Description 02/07/2025 3:10 PM EDT Routine [facility] [address] [place] [address] Willis Chen, DO [address] [facility] [place] [address] Scheduled Orders Name Type Priority Associated Diagnoses Orde r Schedule Type and screen Lab Routine Missed menses , unspecified gestational age (HHS-HCC) Expected: 01/12/2025 (Approximate), Expires: 01/12/2026 ABO/Rh Lab Routine Missed menses , unspecified gestational age (HHS-HCC) Expected: 01/12/2025 (Approximate), Expires: 01/12/2026 CBC and differential Lab Routine Missed menses , unspecified gestational age (HHS-HCC) Ordered: 01/12/2025 Hemoglobin A1c Lab Routine Missed menses , unspecified gestational age (HHS-HCC) Ordered: 01/12/2025 RPR Lab Routine Missed menses , unspecified gestational age ([facility]) Ordered: 01/12/2025 Rubella antibody, IgG Lab Routine Missed menses , unspecified gestational age (HHS-HCC) Ordered: 01/12/2025 Hepatitis B surface antigen Lab Routine Missed menses , unspecified gestational age ([facility]-HCC) Ordered: 01/12/2025 Hepatitis C antibody Lab Routine Missed menses , unspecified gestational age (HHS-HCC) Ordered: 01/12/2025 HIV-1 and HIV-2 antibodies Lab Routine Missed menses , unspecified gestational age (HHS-HCC) Ordered: 01/12/2025 Urine culture Microbiology Routine Missed menses Ordered: 01/12/2025 Rapid drug screen, urine Lab Routine , unspecified gestational age ([facility]-HCC) Encounter for supervision of normal first in first trimester ([facility]-HCC) Expected: 01/12/2025 (Approximate), Expires: 01/12/2026 documented as of this encounter Goals Goal Patient Goal Type Associated Problems Recent Progress Patient-Stated? Author Reminders Care Plan OB Reminders No Open Scheduling, Background documented as of this encounter Procedures Procedure Name Priority Date/Time Associated Diagnosis Comments POCT URINALYSIS DIPSTICK Routine 01/12/2025 11:10 AM EDT Missed menses POCT , URINE Routine 01/12/2025 11:09 AM EDT Missed menses documented in this encounter Results * (ABNORMAL) POCT urinalysis dipstick manually resulted (01/12/2025 11:10 AM EDT) Color, UA Yellow Clarity, UA Clear Glucose, UA Negative Negative - 2000(110) ++++ mg/dL Bilirubin, UA Negative Negative - 4(70) +++ mg/dL Ketones, UA Negative Negative - 160(16) ++++ mg/dL Spec Grav, UA 1.020 1 - 1.03 Blood, UA Negative Negative - 50 Jae/mcL pH, UA 7.0 5 - 9 Protein, UA Negative Negative - 2000(20) ++++ mg/dL Urobilinogen, UA 0.2 0.2 - 12 mg/dL Leukocytes, UA Trace Negative - 500+++ Marsha/mcL Nitrite, UA Negative Negative - Positive Urine 01/12/2025 11:1 0 AM EDT us Willis April DO POINT OF CARE TEST ENTER/EDIT OR DERABLES Edited Result - Final * (ABNORMAL) POCT , urine manually resulted (01/12/2025 11:09 AM EDT) Preg Test, Ur Positive Negative Urine 01/12/2025 11:0 9 AM EDT us Willis April DO POINT OF CARE TEST ENTER/EDIT OR DERABLES Final Result * US OB transvaginal (01/12/2025 10:57 AM [...] ovaries. Interpreted by: Electronically signed by ROSENDA GALICIA II, MD, PHD at 14-Jan-2025 10:04:37 PM [facility] Procedure Note Rosenda Galicia MD - 01/14/2025 EXAM: US OB TRANSVAGINAL [...] ovaries. Interpreted by: Electronically signed by ROSENDA GALICIA II, MD, PHD [id number] 10:04:37 PM [facility] us Willis Chen DO IMG OB US PROCEDURES Final Resul t documented in this encounter Visit Diagnoses Diagnosis Missed menses Missed menses , unspecified gestational age (HHS-HCC) Encounter for supervision of normal first in first trimester (HHS-HCC) Nausea and vomiting in (HHS-HCC) Unspecified vomiting of , unspecified as to episode of care Seizure (HCC) Other convulsions Chronic hypertension documented in this encounter Additional Health Concerns Active Problems Noted Date Diagnosed Date OB Reminders 01/14/2023 documented as of this encounter Care Teams Lens Grinding Machine Operator Relationship Specialty [place] [address] [place] [address] PCP - General Family Medicine 01/14/23 documented as of this encounter
--- OUTSIDE RECORDS SUMMARY | 2025-01-22 14:13 | XMS_ITS | Clinical Summary ---
Author Organization [facility] Address [address] [place] [address] Care Team Providers Care Joint Runner Name Role Phone Suzanne Uriarte MD Primary Care Provider +1- [phone] Allergies No known active allergies Medications lamoTRIgine (LaMICtal) 100 MG tablet Take 100 mg by mouth in the morning and 100 mg in the evening. Active MV-Min-Fe Fum-FA-DHA ( 1 PO) Take by mouth Active labetalol (Normodyne) 200 MG tabletIndications:S econdary hypertension TAKE 1 TABLET BY MOUTH TWICE A DAY 60 tablet 3 5 Active ondansetron ODT (Zofran-ODT) 4 MG disintegrating tabletIndications:N ausea and vomiting in ([facility]) Take 1 tablet (4 mg) by mouth every 6 (six) hours if needed for nausea or vomiting 30 tablet 2 5 02/12/20 25 Active Active Problems Problem Noted Date Diagnosed Date Breech presentation, no version ([facility]) 2023 Hypertension 01/14/2023 Seizure 07/09/2021 Estimated Date of Delivery Comme nts Yes 08/20/2025 Based on last me nstrual period of 11/13/2024 Encounters Date Type Department Care Team Description 01/12/2025 11:00 AM EDT Initial [facility] [address] [place] [address] [place]: 8w4d 01/12/2025 10:30 AM EDT Ancillary Procedure [facility] [address] [facility] [place] [phone] Missed menses 01/05/2025 Travel from Last 3 Months Social History Tobacco Use Types Packs/Day Years [...] Orientation Straight 12/21/2022 8: 22 PM EDT Last Filed Vital Signs Vital Sign Reading Time Taken Comments Blood Pressure 120/70 09/15/2023 10:18 AM EST Pulse - - Temperature - - Respiratory Rate - - Oxygen Saturation - - Inhaled Oxygen Concentration - - Weight 81.6 kg (179 lb 12.8 oz) 025 11:56 AM EDT Height 175.3 cm (5' 9 ) 11/16/2022 12:0 0 PM EDT Body Mass Index 26.55 11/16/2022 12:00 PM EDT Plan of Treatment Upcoming Encounters Date Type Department Care Team (Late st Contact Info) Description 02/07/2025 3:10 PM EDT Routine [facility] [address] [place] [address] [place] [phone] Willis Chen, DO [address] [place] [address] [place] [address] Health Maintenance Due Date Last Done Comments HPV/Cotest 10/02/2023 Influenza Vaccine (#1) 2025 3, 04/21/2022, 04/18/2021, Additional history exists Cervical Cancer Screening 03/09/2026 Pap Smear 03/09/2026 03/09/2023 Goals Goal Patient Goal Type Associated Problems Recent Progress Patient-Stated? Author Reminders Care Plan OB Reminders No Open Scheduling, Background Procedures Procedure Name Priority Date/Time Associated Diagnosis Comments POCT URINALYSIS DIPSTICK Routine 01/12/2025 11:10 AM EDT Missed menses POCT , URINE Routine 01/12/2025 11:09 AM EDT Missed menses US OB TRANSVAGINAL Routine 01/12/2025 10 :57 AM EDT Missed menses PAP SMEAR Routine 03/09/2023 12:00 AM EDT from Last 3 Months or Most Recently Relevant to Health Maintenance Results * (ABNORMAL) POCT urinalysis dipstick manually [...] Positive Urine 01/12/2025 11:1 0 AM EDT Willis April DO POINT OF CARE TEST [...] II, MD, PHD at 14-Jan-2025 10:04:37 PM [facility] Procedure Note Rosenda Torres MD - [...] signed by ROSENDA TORRES II, MD, PHD [id number] 10:04:37 PM [facility] us Willis Chen DO IMG OB US PROCEDURES Final Resul t * Pap Smear (03/09/2023 12:00 AM EDT) Swab Cervical swab / Unknown us Willis Chen DO LAB CYTOLOGY ORDERABLES Final Re sult EXTERNAL LAB from Last 3 Months or Most Recently Relevant to Health Maintenance Additional Health Concerns Active Problems Noted Date Diagnosed Date OB Reminders 01/14/2023 Insurance [employer] Care Teams Joint Runner Relationship Specialty Start [place] [address] [place], [place] [id number] PCP - General Family Medicine 01/14/23
--- OUTSIDE RECORDS SUMMARY | 2025-01-22 14:14 | XMS_ITS | Encounter Summary ---
Author Organization [facility] Address [address] [facility] [place] [address] Care Team Providers Care Grounds Crew Supervisor Name Role Phone Suzanne Uriarte MD Primary Care Provider [phone] Encounter Details Date Type Department Care Team (Late st Contact Info) Description 07/11/2023 Clinisync Result Encounter [facility]S External Department Unsolicited Lisa Chen, [address] [place], [facility] Social History Tobacco Use Types Packs/Day Years Used Date Smoking Tobacco: Never Assessed Comments Yes Sex and Gender Information Value Date Recorded Sex Assigned at Female 12/21/2022 8:22 PM EDT Legal Sex Female 11:40 PM EDT Gender Identity Female 12/21/2022 8:22 PM EDT Sexual Orientation Straight 12/21/2022 8: 22 PM EDT COVID-19 Exposure Response Date Recorded In the last 10 days, have claudia u been in contact with someone who was confirmed or suspected to have Coronavirus/COVID-19? No / Unsure 06/24/2023 5:49 AM EST documented as of this encounter Plan of Treatment Upcoming Encounters Date Type Department Care Team (Late st Contact Info) Description 02/07/2025 3:10 PM EDT Routine [facility] BCP [place] [address] [place] [id number] Lisa Chen, [address] [place] [address] [phone] (work) documented as of this encounter Goals Goal Patient Goal Type Associated Problems Recent Progress Patient-Stated? Author Reminders Care Plan OB Reminders No Open Scheduling, Background documented as of this encounter Procedures Procedure Name Priority Date/Time Associated Diagnosis Comments US OB BPP W NON-STRESS 07/11/2023 12:18 AM EST documented in this encounter Results * US OB BPP W NON-STRESS (07/11/2023 12:18 AM EST) Anatomical Region Laterality Modality Other 07/11/2023 12:1 8 AM EST Narrative 07/11/2023 12:20 [place] [address] Ultrasound Report Signed Patient: KAVYA CANTU MR#: [id number] : 1995 Acct:[id number] Age/Sex: 27 / F ADM Date: 07/10/23 Loc: FBCO Attending Dr: Lisa Chen D.O. Ordering Physician: Lisa Chen D.O. Date of Service: 07/10/23 Procedure(s): US OB BPP w non-stress Accession Number(s): [id number] cc: Lisa Chen D.O.; Physician,Non-Staff M.No [address] [address] Patient Name: KAVYA CANTU MRN: [facility]:[id number] date: 1995 Sex: F Assigned Patient Location: [facility] Current Patient Location: Accession/Order Number: [id number] Exam Date: 07/10/2023 14:31 Report Date: 07/11/2023 00:18 At the request of: LISA CHEN Procedure: US OB BPP w non-stress EXAMINATION: US OB BPP w non-stress HISTORY: LGA COMPARISON: Ultrasound OB growth 06/17/2023 TECHNIQUE: Ultrasound biophysical profile was performed in the radiology department. BREATHING MOVEMENTS: 2.0 GROSS BODY MOVEMENTS: 2.0 TONE: 2.0 QUALITATIVE AMNIOTIC FLUID VOLUME: 2.0 PRESENTATION: BREECH HEART RATE: 145.1 bpm bpm. AMNIOTIC FLUID VOLUME: 15.1 cm GESTATIONAL AGE: 33 weeks 5 days CONCLUSION: Total biophysical profile score 8.0. Electronically authenticated by: CARLO MAIER Date: 07/11/2023 00:18 Dictated By: Carlo Maier M.D. Signed By: 07/11/23 0020 DD/ 0018 TD/TT: Rounding Machine Operator: Procedure Note Radiology, Radiologist, MD - 07/11/2023 [place] [address] Ultrasound Report Signed Patient: KAVYA CANTU AMR#: [id number] : 1995Acct:[id number] Age/Sex: 27 / FADM Date: 07/10/23 Loc: FBCO Attending Dr: Lisa Chen D.O. Ordering Physician: Lisa Chen D.O. Date of Service: 07/10/23 Procedure(s): US OB BPP w non-stress Accession Number(s): [id number] cc: Lisa Chen D.O.; Physician,Non-Staff Jake [place] [id number] Patient Name: KAVYA CANTU MRN: [id number] date: 1995 Sex: F Assigned Patient Location: [facility] Current Patient Location: Accession/Order Number: [id number] Exam Date: 07/10/2023 14:31 Report Date: 07/11/2023 00:18 At the request of: LISA CHEN Procedure: US OB BPP w non-stress EXAMINATION: US OB BPP w non-stress HISTORY: LGA COMPARISON: Ultrasound OB growth 06/17/2023 TECHNIQUE: Ultrasound biophysical profile was performed in the radiology department. BREATHING MOVEMENTS: 2.0 GROSS BODY MOVEMENTS: 2.0 TONE: 2.0 QUALITATIVE AMNIOTIC FLUID VOLUME: 2.0 PRESENTATION: BREECH HEART RATE: 145.1 bpm bpm. AMNIOTIC FLUID VOLUME: 15.1 cm GESTATIONAL AGE: 33 weeks 5 days CONCLUSION: Total biophysical profile score 8.0. Electronically authenticated by: CARLO MAIER Date: 07/11/2023 00:18 Dictated By: Carlo Maier M.D. Signed By:07/11/23 0020 DD/ 0018 TD/TT: Rounding Machine Operator: us Lisa Estevezo DO [facility] Final Result documented in this encounter Visit Diagnoses Not on filedocumented in this encounter Additional Health Concerns Active Problems Noted Date Diagnosed Date OB Reminders 01/14/2023 documented as of this encounter Care Teams Grounds Crew Supervisor Relationship Specialty Start [place] [address] [place], [place] [id number] PCP - General Family Medicine 01/14/23 documented as of this encounter
--- OUTSIDE RECORDS SUMMARY | 2025-01-22 14:14 | XMS_ITS | Encounter Summary ---
Author Organization [facility] Address [address] [place] [address] Phone Care Team Providers Care Pipe Line Walker Name Role Phone Suzanne Uriarte MD Primary Care Provider + Suzanne Uriarte MD Unavailable [phone] Suzanne Uriarte MD Unavailable [phone] Encounter Details Date Type Department Care Team (Late st Contact Info) Description 06/20/2023 Patient Risk Score ACO Care Management [address] [place] [address] Social History Tobacco Use Types Packs/Day Years Used Date Smoking Tobacco: Never Passive Smoke Exposure: Never Smokeless Tobacco: Never Comments Yes Sex and Gender Information Value Date Recorded Sex Assigned at Not on file Legal Sex Female 10:33 PM EST Gender Identity Not on file Sexual Orientation Not on file documented as of this encounter Plan of Treatment Upcoming Encounters Date Type Department Care Team (Late st Contact Info) Description 02/12/2025 2:20 PM EDT Office Visit [facility] Primary Care [address] [address] [place] [address] [place], [place] [id number] 05/01/2025 10:00 AM EDT Office Visit [address] [address] [place] [address] [facility] [address], [address] [address] documented as of this encounter Visit Diagnoses Not on filedocumented in this encounter Care Teams Pipe Line Walker Relationship Specialty Start [place] [address] [place] [address] PCP - General 08/14/20 [place] [address] [place] [address] PCP - MMO ACO PCP 07/19/23 12/17/23 [place] [address] [place] [address] PCP - MMO ACO PCP 04/18/24 07/18/24 documented as of this encounter
--- OUTSIDE RECORDS SUMMARY | 2025-01-22 14:14 | XMS_ITS | Encounter Summary ---
Author Organization [facility] Address [address] [place] [address] Phone Care Team Providers Care Dehorner Name Role Phone Suzanne Uriarte MD Primary Care Provider + Encounter Details Date Type Department Care Team (Late st Contact Info) Description 10/20/2024 Patient Risk Score AC Care Management [address] [place] [address] Social History Tobacco Use Types Packs/Day Years Used Date Smoking Tobacco: Never Passive Smoke Exposure: Never Smokeless Tobacco: Never Alcohol Use Standard Drinks/Week Comments Yes 0 (1 standard drink = 0.6 oz pur e alcohol) Socially AUDIT-C Answer Date Recorded Q1: How often do you have a drink containing alcohol? Never 05/03/2024 Q2: How many drinks containi ng alcohol do you have on a typical day when you are drinking? Patient does not drink Q3: How often do you have si x or more drinks on one occasion? Never 05/03/2024 PHQ-2 Answer Date Recorded Patient Health Questionnaire-2 Score 0 05/03/2024 Comments No Sex and Gender Information Value Date Recorded Sex Assigned at Not on file Legal Sex Female 10:33 PM EST Gender Identity Not on file Sexual Orientation Not on file documented as of this encounter Plan of Treatment Upcoming Encounters Date Type Department Care Team (Late st Contact Info) Description 02/12/2025 2:20 PM EDT Office Visit [facility] Primary Care [address] [address] [place] [address] [place] [address] 05/01/2025 10:00 AM EDT Office Visit [address] [phone] Nedra Deleon MD [address] [place] [address] Dr [address], [address] [address] documented as of this encounter Visit Diagnoses Not on filedocumented in this encounter Additional Health Concerns Assessment Noted Time A fall risk assessment has been complete d for the patient 05/03/2024 9:18 AM EDT documented as of this encounter Care Teams Dehorner Relationship Specialty Start [place] [address] [place] [address] PCP - General 08/14/20 documented as of this encounter
--- OUTSIDE RECORDS SUMMARY | 2025-01-22 14:14 | XMS_ITS | Encounter Summary ---
Author Organization [facility] Address [address] [place] [address] Phone Care Team Providers Care Puzzle Assembler Name Role Phone Suzanne Uriarte MD Primary Care Provider + Suzanne Uriarte MD Unavailable [phone] Encounter Details Date Type Department Care Team (Late st Contact Info) Description 06/21/2024 Patient Risk Score AC Care Management [address] [place] [address] Social History Tobacco Use Types Packs/Day Years Used Date Smoking Tobacco: Never Passive Smoke Exposure: Never Smokeless Tobacco: Never Alcohol Use Standard Drinks/Week Comments Not Currently 0 (1 standard drink = 0.6 oz pur e alcohol) AUDIT-C Answer Date Recorded Q1: How often [...] Description 02/12/2025 2:20 PM EDT Office Visit [facility] Primary Care [address] [place] [address] [place] [address] [place] [address] 05/01/2025 10:00 AM EDT Office Visit [address] [phone] Nedra Deleon MD [address] [place] [address] Dr [address], [address] [address] documented as of this encounter Visit Diagnoses Not on filedocumented in this encounter Additional Health Concerns Assessment Noted Time A fall risk assessment has been complete d for the patient 05/03/2024 9:18 AM EDT documented as of this encounter Care Teams Puzzle Assembler Relationship Specialty Start [place] [address] [place] [address] PCP - General 08/14/20 [place] [address] [place] [address] PCP - MMO ACO PCP 04/18/24 07/18/24 documented as of this encounter
--- OUTSIDE RECORDS SUMMARY | 2025-01-22 14:14 | XMS_ITS | Encounter Summary ---
Author Organization [facility] Address [address] [facility] [place] [address] Care Team Providers Care Discharge Coordinator Name Role Phone Suzanne Uriarte MD Primary Care Provider [phone] Encounter Details Date Type Department Care Team (Late st Contact Info) Description 08/02/2023 Abstract [facility] BCP OB [address] [facility] [place] [address] Lynette Engel LPN [address] [facility] [place], [place] [id number] Social History Tobacco Use Types Packs/Day Years [...] PM EDT Routine [facility] BCP OB [address] [facility] [place] [address] Willis Chen, DO [address] [facility] [address] [place], [place] [address] documented as of this encounter Goals Goal Patient Goal Type Associated Problems Recent Progress Patient-Stated? Author Reminders Care Plan OB Reminders No Open Scheduling, Background documented as of this encounter Visit Diagnoses Not on filedocumented in this encounter Additional Health Concerns Active Problems Noted Date Diagnosed Date OB Reminders 01/14/2023 documented as of this encounter Care Teams Discharge Coordinator Relationship Specialty [place] [address] [place], [place] [phone] PCP - General Family Medicine 01/14/23 documented as of this encounter
--- OUTSIDE RECORDS SUMMARY | 2025-01-22 14:14 | XMS_ITS | Encounter Summary ---
Author Organization [facility] Address [address] [place] [address] Phone Care Team Providers Care Mechanical Technologist Name Role Phone Suzanne Uriarte MD Primary Care Provider + Suzanne Uriarte MD Unavailable [phone] Encounter Details Date Type Department Care Team (Late Contact Info) Description 12/20/2023 Patient Risk Score ACO Care Management [address] [place] [address] Social History Tobacco Use Types [...] Encounters Date Type Department Care Team (Late Contact Info) Description 02/12/2025 2:20 PM EDT Office Visit [facility] Primary Care [address] [address] [place] [address] [place], [place] [phone] 05/01/2025 10:00 AM EDT Office Visit [address] [place] [address] [place] [address] [facility] [address], [address] [address] documented as of this encounter Visit Diagnoses Not on filedocumented in this encounter Care Teams Mechanical Technologist Relationship Specialty Start [place] [address] [place] [address] PCP - General 08/14/20 [place] [address] [place] [address] PCP - MMO ACO PCP 04/18/24 07/18/24 documented as of this encounter
--- OUTSIDE RECORDS SUMMARY | 2025-01-22 14:14 | XMS_ITS | Encounter Summary ---
Author Organization [facility] Address [address] [place] [address] Phone Care Team Providers Care Blood Bank Attendant Name Role Phone Suzanne Uriarte MD Primary Care Provider + Suzanne Uriarte MD Unavailable Suzanne Uriarte MD Unavailable [phone] Suzanne Uriarte MD Unavailable [phone] Encounter Details Date Type Department Care Team (Late st Contact Info) Description 04/20/2023 Patient Risk Score AC Care Management [address] [place] [address] Social History Tobacco Use Types Packs/Day Years Used Date Smoking Tobacco: Never Assessed Comments Unknown Sex and Gender Information Value Date Recorded Sex Assigned at Not on file Legal Sex Female 10:33 PM EST Gender Identity Not on file Sexual Orientation Not on file documented as of this encounter Plan of Treatment Upcoming Encounters Date Type Department Care Team (Late st Contact Info) Description 02/12/2025 2:20 PM EDT Office Visit [facility] Primary Care [address] [address] [place] [address] [place], [place] [address] 05/01/2025 10:00 AM EDT Office Visit [address] [address] Nedra Deleon MD [address] [place] [address] Dr [address], [address] [address] documented as of this encounter Visit Diagnoses Not on filedocumented in this encounter Care Teams Blood Bank Attendant Relationship Specialty Start [place] [address] [place] [address] PCP - General 08/14/20 [place] [address] [place] [address] PCP - MMO ACO PCP 02/16/23 05/18/23 [place] [address] [place] [address] PCP - MMO ACO PCP 07/19/23 12/17/23 [place] [address] [place] [address] PCP - MMO ACO PCP 04/18/24 07/18/24 documented as of this encounter
--- OUTSIDE RECORDS SUMMARY | 2025-01-22 14:14 | XMS_ITS | Encounter Summary ---
Author Organization [facility] Address [address] [facility] [place] [address] Care Team Providers Care Marketing Pr Intern Name Role Phone Suzanne Uriarte MD Primary Care Provider [phone] Encounter Details Date Type Department Care Team (Late st Contact Info) Description 07/26/2023 Clinisync Result Encounter NOMS External Department Unsolicited Lisa Chen, [facility] [place] [address] Social History Tobacco Use Types Packs/Day Years [...] Routine [facility] BCP OB [address] [place] [phone] Lisa Chen DO [address] [place] [address] [place] [address] documented as of this encounter Goals Goal Patient Goal Type Associated Problems Recent Progress Patient-Stated? Author Reminders Care Plan OB Reminders No Open Scheduling, Background documented as of this encounter Procedures Procedure Name Priority Date/Time Associated Diagnosis Comments US OB BPP W NON-STRESS 07/26/2023 7:09 AM EST documented in this encounter Results * US OB BPP W NON-STRESS (07/26/2023 7:09 AM EST) Anatomical Region Laterality Modality Other 07/26/2023 7:09 AM EST Narrative 07/26/2023 7:12 [place] [address] Ultrasound Report Signed Patient: KAVYA CANTU MR#: [id number] : 1995 Acct:[id number] Age/Sex: 27 / F ADM Date: 07/24/23 Loc: US Attending Dr: Lisa Chen D.O. Ordering Physician: Lisa Chen D.O. Date of Service: 07/24/23 Procedure(s): US OB BPP w non-stress Accession Number(s): [id number] cc: Lisa Chen D.O.; Physician,Non-Staff M.No [place] [address] Patient Name: KAVYA CANTU MRN: [id number] date: 1995 Sex: F Assigned Patient Location: [facility] Current Patient Location: Accession/Order Number: [id number] Exam Date: 07/24/2023 08:19 Report Date: 07/26/2023 07:09 At the request of: LISA CHEN Procedure: US OB BPP w non-stress EXAMINATION: US OB BPP w non-stress HISTORY: Chronic hypertension COMPARISON: No relevant comparison available. TECHNIQUE: Ultrasound biophysical profile was performed in the radiology department. non-reactive stress testing was performed by nursing staff in the birthing center. FINDINGS: BREATHING MOVEMENTS: 2.0 GROSS BODY MOVEMENTS: 2.0 TONE: 2.0 QUALITATIVE AMNIOTIC FLUID VOLUME: 2.0 PRESENTATION: BREECH HEART RATE: 133.0 bpm H.B./min AMNIOTIC FLUID VOLUME: 12.7 cm cm GESTATIONAL AGE: 35 weeks 5 days CONCLUSION: Total biophysical profile score: 8.0 Electronically authenticated by: HAYLIE RIVER Date: 07/26/2023 07:09 Dictated By: Haylie River M.D. Signed By: 07/26/23711 DD/ 8 TD/TT: Boat Carpenter: Procedure Note Radiology, Radiologist, - 09/22/2023 [place] [address] Ultrasound Report Signed Patient: KAVYA CANTU AMR#: [id number] : 1995Acct:[id number] Age/Sex: 27 / FADM Date: 07/24/23 Loc: US Attending Dr: Lisa Chen D.O. Ordering Physician: Lisa Chen D.O. Date of Service: 07/24/23 Procedure(s): US OB BPP w non-stress Accession Number(s): [id number] cc: Lisa Chen D.O.; Physician,Non-Staff Jake The [place] [id number] Patient Name: KAVYA CANTU MRN: [id number] date: 1995 Sex: F Assigned Patient Location: [facility] Current Patient Location: Accession/Order Number: [id number] Exam Date: 07/24/2023 08:19 Report Date: 07/26/2023 07:09 At the request of: LISA CHEN Procedure: US OB BPP w non-stress EXAMINATION: US OB BPP w non-stress HISTORY: Chronic hypertension COMPARISON: No relevant comparison available. TECHNIQUE: Ultrasound biophysical profile was performed in the radiology department. [facility]-reactive [facility]. FINDINGS: BREATHING MOVEMENTS: 2.0 GROSS BODY MOVEMENTS: 2.0 TONE: 2.0 QUALITATIVE AMNIOTIC FLUID VOLUME: 2.0 PRESENTATION: BREECH HEART RATE: 133.0 bpm H.B./min AMNIOTIC FLUID VOLUME: 12.7 cm cm GESTATIONAL AGE: 35 weeks 5 days CONCLUSION: Total biophysical profile score: 8.0 Electronically authenticated by: HAYLIE RIVER Date: 07/26/2023 07:09 Dictated By: Haylie River M.D. Signed By:07/26/23711 DD/ 8 TD/TT: Boat Carpenter: us Lisa Estevezo DO [facility] Final Result documented in this encounter Visit Diagnoses Not on filedocumented in this encounter Additional Health Concerns Active Problems Noted Date Diagnosed Date OB Reminders 01/14/2023 documented as of this encounter Care Teams Marketing Pr Intern Relationship Specialty Start [place] [address] [address] [place] [address] PCP - General Family Medicine 01/14/23 documented as of this encounter
--- OUTSIDE RECORDS SUMMARY | 2025-01-22 14:14 | XMS_ITS | Encounter Summary ---
Author Organization [facility] Address [address] [facility] [place] [address] Care Team Providers Care Wine Merchant Name Role Phone Suzanne Uriarte MD Primary Care Provider [phone] Encounter Details Date Type Department Care Team (Late st Contact Info) Description 07/11/2023 Clinisync Result Encounter [facility] External Department Unsolicited Lisa Chen, [address], [facility]11 Social History Tobacco Use Types Packs/Day [...] Routine [facility] BCP [place] [address] [place] [phone] Lisa Chen, [address] [place] [address] [phone] (work) documented as of this encounter Goals Goal Patient Goal Type Associated Problems Recent Progress Patient-Stated? Author Reminders Care Plan OB Reminders No Open Scheduling, Background documented as of this encounter Procedures Procedure Name Priority Date/Time Associated Diagnosis Comments US OB GROWTH 07/11/2023 12:47 AM EST documented in this encounter Results * US OB GROWTH (07/11/2023 12:47 AM EST) Anatomical Region Laterality Modality Other 07/11/2023 12:4 7 AM EST Narrative 07/11/2023 12:50 [place] [address] Ultrasound Report Signed Patient: PRINCESS CANTU MR#: [id number] : 1995 Acct:[id number] Age/Sex: 27 / F ADM Date: 07/10/23 Loc: [facility]BCO Attending Dr: Lisa Chen D.O. Ordering Physician: Lisa Chen D.O. Date of Service: 07/10/23 Procedure(s): US OB growth Accession Number(s): [id number] cc: Lisa Chen D.O.; Physician,Non-Staff M.DLima [address] [address] Patient Name: PRINCESS CANTU MRN: [id number] date: 1995 Sex: F Assigned Patient Location: [facility] [place] [facility] [place]/Order Number: [id number] Exam Date: 07/10/2023 14:31 Report Date: 07/11/2023 00:47 At the request of: LISA CHEN Procedure: US OB growth EXAMINATION: US OB growth HISTORY: chronic hypertension COMPARISON: Ultrasound OB growth 06/17/2023 FINDINGS: Heart Rate: 145.1 bpm Number: 1.0 Position: BREECH Amniotic Fluid Volume: 15.1 cm Maximum Vertical Pocket: 7.0 cm BIOMETRY: BPD: 8.2 cm cm; 32 weeks 6 days; 24% HC: 30.6 cmcm; 34 weeks 1 days ; 24% AC: 29.2 cm cm; 33 weeks 1 days; 36% FL: 6.3 cm cm; 32 weeks 3 days; 12% EFW: 2100.4 grams; 23% FL/AC: 21.5 FL/BPD: 76.4 HC/AC: 1.1 GESTATIONAL AGE: Age by EDC: 33 weeks 5 days RAS by EDC: 08/23/2023 Age by US: 33 weeks 1 day RAS by US: 08/27/2023 US/US OB growth IMPRESSION: 1. Single live intrauterine with growth detailed above. Electronically authenticated by: CARLO MAIER Date: 07/11/2023 00:47 Dictated By: Carlo Maier M.D. Signed By: 07/11/2349 DD/ TD/TT: Medical Grade Shoemaker: Procedure Note Radiology, Radiologist, MD - 09/22/2023 [place] [address] Ultrasound Report Signed Patient: PRINCESS CANTU AMR#: [id number] : 1995Acct:[id number] Age/Sex: 27 / FADM Date: 07/10/23 [place] [facility] [place] Dr: Lisa Chen D.O. Ordering Physician: Lisa Chen D.O. Date of Service: 07/10/23 Procedure(s): US OB growth Accession Number(s): [id number] cc: Lisa Chen D.O.; Physician,Non-Staff MCheryl The [place] [address] Patient Name: PRINCESS CANTU MRN: [id number] date: 1995 Sex: F Assigned Patient Location: [facility] [place] [facility] [place] Accession/Order Number: [id number] Exam Date: 07/10/2023 14:31 Report Date: 07/11/2023 00:47 At the request of: LISA CHEN Procedure: US OB growth EXAMINATION: US OB growth HISTORY: chronic hypertension COMPARISON: Ultrasound OB growth 06/17/2023 FINDINGS: Heart Rate: 145.1 bpm Number: 1.0 Position: BREECH Amniotic Fluid Volume: 15.1 cm Maximum Vertical Pocket: 7.0 cm BIOMETRY: BPD: 8.2 cm cm; 32 weeks 6 days; 24% HC: 30.6 cmcm; 34 weeks 1 days ; 24% AC: 29.2 cm cm; 33 weeks 1 days; 36% FL: 6.3 cm cm; 32 weeks 3 days; 12% EFW: 2100.4 grams; 23% FL/AC: 21.5 FL/BPD: 76.4 HC/AC: 1.1 GESTATIONAL AGE: Age by EDC: 33 weeks 5 days RAS by EDC: 08/23/2023 Age by US: 33 weeks 1 day RAS by US: 08/27/2023 US/US OB growth IMPRESSION: 1. Single live intrauterine with growth detailed above. Electronically authenticated by: CARLO MAIER Date: 07/11/2023 00:47 Dictated By: Carlo Maier M.D. Signed By:07/11/2349 DD/ TD/TT: Medical Grade Shoemaker: us Lisa April DO [facility] Final Result documented in this encounter Visit Diagnoses Not on filedocumented in this encounter Additional Health Concerns Active Problems Noted Date Diagnosed Date OB Reminders 01/14/2023 documented as of this encounter Care Teams Wine Merchant Relationship Specialty Start [place] [address] [address] PCP - General Family Medicine 01/14/23 documented as of this encounter
--- OUTSIDE RECORDS SUMMARY | 2025-01-22 14:14 | XMS_ITS | Encounter Summary ---
Author Organization [facility] Address [address] [place] [address] Phone Care Team Providers Care Spray Booth Operator Name Role Phone Suzanne Uriarte MD Primary Care Provider + Suzanne Uriarte MD Unavailable [phone] Suzanne Uriarte MD Unavailable [phone] Encounter Details Date Type Department Care Team (Late st Contact Info) Description 05/21/2023 Patient Risk Score ACO Care Management [address] [place] [address] Social History Tobacco Use Types Packs/Day Years Used Date Smoking Tobacco: Never Passive Smoke Exposure: Never Smokeless Tobacco: Never Comments Yes Sex and Gender Information Value Date Recorded Sex Assigned at Not on file Legal Sex Female 10:33 PM EST Gender Identity Not on file Sexual Orientation Not on file COVID-19 Exposure Response Date Recorded In the last 10 days, have yo u been in contact with someone who was confirmed or suspected to have Coronavirus/COVID-19? No / Unsure 04/30/2023 11:13 AM EDT documented as of this encounter Plan of Treatment Upcoming Encounters Date Type Department Care Team (Late st Contact Info) Description 02/12/2025 2:20 PM EDT Office Visit [facility] [address] [address] [place] [address] [place] [address] 05/01/2025 10:00 AM EDT Office Visit [address] Chiu [address] [phone] Nedra Deleon MD [address] [place] [address] Dr Chiu 2, [address] [address] documented as of this encounter Visit Diagnoses Not on filedocumented in this encounter Care Teams Spray Booth Operator Relationship Specialty Start [place] [address] [place] [address] PCP - General 08/14/20 [place] [address] [place] [address] PCP - MMO ACO PCP 07/19/23 12/17/23 [place] [address] [place] [address] PCP - MMO ACO PCP 04/18/24 07/18/24 documented as of this encounter
--- OUTSIDE RECORDS SUMMARY | 2025-01-22 14:14 | XMS_ITS | Encounter Summary ---
Author Organization [facility] Address [address] [facility] [place] [address] Care Team Providers Care Cabinet Installer Name Role Phone Suzanne Uriarte MD Primary Care Provider [phone]- [phone] Encounter Details Date Type Department Care Team (Late st Contact Info) Description 04/07/2023 Clinisync Result Encounter [facility] External Department Unsolicited Lisa Chen, [address], [facility] Social History Tobacco Use Types Packs/Day Years [...] suspected to have Coronavirus/COVID-19? No / Unsure 03/31/2023 5:06 PM EDT documented as of this encounter Plan of Treatment Upcoming Encounters Date Type Department Care Team (Late st Contact Info) Description 02/07/2025 3:10 PM EDT Routine [facility] BCP OB [address] [place] [phone] Lisa Chen DO [address], [facility] [address] [phone] (work) documented as of this encounter Goals Goal Patient Goal Type Associated Problems Recent Progress Patient-Stated? Author Reminders Care Plan OB Reminders No Open Scheduling, Background documented as of this encounter Procedures Procedure Name Priority Date/Time Associated Diagnosis Comments US OB TRANSVAGINAL 04/07/2023 3: 20 PM EDT documented in this encounter Results * US OB TRANSVAGINAL (04/07/2023 3:20 PM EDT) Anatomical Region Laterality Modality Other 04/07/2023 3:20 PM EDT Narrative 04/07/2023 3:20 [place] [address] Ultrasound Report Signed Patient: KAVYA CANTU MR#: [id number] : 1995 Acct:[id number] Age/Sex: 27 / F ADM Date: 04/06/23 Loc: US Attending Dr: Lisa Chen D.O. Ordering Physician: Lisa Chen D.O. Date of Service: 04/06/23 Procedure(s): US OB transvaginal Accession Number(s): [id number] cc: Lisa Chen D.O.; Physician,Non-Staff M.DLima The [address] [address] Patient Name: KAVYA CANTU MRN: [facility]:[id number] date: 1995 Sex: F Assigned Patient Location: US Current Patient Location: US Accession/Order Number: [id number] Exam Date: 04/06/2023 20:36 Report Date: 04/07/2023 15:20 At the request of: LISA CHEN Procedure: US OB transvaginal EXAMINATION: US OB transvaginal HISTORY: SECOND TRIMESTER Z34.92 COMPARISON: Ultrasound OB anatomy 04/06/2023 US/US OB transvaginal IMPRESSION: Please see ultrasound OB anatomy 04/06/2023 report. Electronically authenticated by: CARLO MAIER Date: 04/07/2023 15:20 Dictated By: Carlo Maier M.D. Signed By: 04/07/231521 DD/ 19 TD/TT: Feed Adviser: Procedure Note Radiology, Radiologist, - 04/09/2023 [place] [address] Ultrasound Report Signed Patient: KAVYA CANTU AMR#: [id number] : 1995Acct:[id number] Age/Sex: 27 / FADM Date: 04/06/23 Loc: US Attending Dr: Lisa Chen D.O. Ordering Physician: Lisa Chen D.O. Date of Service: 04/06/23 Procedure(s): US OB transvaginal Accession Number(s): [id number] cc: Lisa Chen D.O.; Physician,Non-Staff Jake The [place] [id number] Patient Name: KAVYA CANTU MRN: [id number] date: 1995 Sex: F Assigned Patient Location: US Current Patient Location: US Accession/Order Number: [id number] Exam Date: 04/06/2023 20:36 Report Date: 04/07/2023 15:20 At the request of: LISA CHEN Procedure: US OB transvaginal EXAMINATION: US OB transvaginal HISTORY: SECOND TRIMESTER Z34.92 COMPARISON: Ultrasound OB anatomy 04/06/2023 US/US OB transvaginal IMPRESSION: Please see ultrasound OB anatomy 04/06/2023 report. Electronically authenticated by: CARLO MAIER Date: 04/07/2023 15:20 Dictated By: Carlo Maier M.D. Signed By:04/07/231521 DD/ 19 TD/TT: Feed Adviser: us Lisa Chen DO [facility] Final Result documented in this encounter Visit Diagnoses Not on filedocumented in this encounter Additional Health Concerns Active Problems Noted Date Diagnosed Date OB Reminders 01/14/2023 documented as of this encounter Care Teams Cabinet Installer Relationship Specialty Start [place] [address] [place], [place] [phone] PCP - General Family Medicine 01/14/23 documented as of this encounter
--- OUTSIDE RECORDS SUMMARY | 2025-01-22 14:14 | XMS_ITS | Clinical Summary ---
Author Organization [facility] Address [address] [place] [address] Phone Care Team Providers Care Gypsum Roofer Name Role Phone Suzanne Uriarte MD Primary Care Provider + Allergies No known active allergies Medications labetalol (Normodyne) 300 mg tabletIndication s:Benign essential hypertension Take 1 tablet (300 mg) by mouth 2 times a day. 60 tablet 5 5 025 Active lamoTRIgine (LaMICtal) 100 mg tabletIndication s:Unspecified convulsions (Multi) TAKE 1 TABLET BY MOUTH TWICE A DAY 60 tablet 11 5 Active lamoTRIgine (LaMICtal) 100 mg tabletIndication s:Unspecified convulsions (Multi) TAKE 1 TABLET BY MOUTH TWICE A DAY 60 tablet 11 4 025 Discontinued Active Problems Problem Noted Date Diagnosed Date Fatigue 09/12/2024 Assessment & Plan (09/14/2024 1:31 PM EST): We talked about healthy habits and sleep hygiene Orders: CBC; Future TSH with reflex to Free T4 if abnormal; Future Vitamin B12; Future Anxiety 10/02/2022 Benign essential hypertension 10/02/2022 Assessment & Plan (09/14/2024 1:31 PM EST): Monitor your blood pressure at home at least once a week and record. Please bring results to your next visit. Take your medicine as prescribed. Exercise at least 30 minutes daily. Lose weight. Avoid eating processed foods, canned foods, etc. Limit adding salt at the table. Orders: labetalol (Normodyne) 300 mg tablet; Take 1 tablet (300 mg) by mouth 2 times a day. Follow Up In [facility] - PCP - Established; Future Seizure (Multi) 10/02/2022 Assessment & Plan (09/14/2024 1:31 PM EST): Good control. Follow up with neuro. Continue meds Vitamin B12 deficiency 10/02/2022 Assessment & Plan (09/14/2024 1:31 PM EST): Resolved Problems Problem Noted Date Diagnosed Date Resolved Date Class 1 obesity with body ma ss index (BMI) of 32.0 to 32.9 in adult 03/28/2023 05/03/2024 Hypertension 01/14/2023 09/12/2024 Abnormal weight gain 10/02/2022 024 Allergic rhinitis 10/02/2022 05/03/2024 Bacterial vaginosis 10/02/2022 05/03/20 24 Bilateral chronic otitis media 10/02/2022 05/03/2024 Chest pain 10/02/2022 05/03/2024 Chronic pansinusitis 10/02/2022 024 Chronic sinusitis 10/02/2022 05/03/2024 Conductive hearing loss, bilateral 10/02/2022 05/03/2024 Elevated BP without diagnosis of hypertension 10/03/19 23 05/03/2024 Globus sensation 10/02/2022 05/03/2024 Hair loss 10/02/2022 05/03/2024 Insomnia 10/02/2022 05/03/2024 Tonsil stone 10/02/2022 05/03/2024 Vaginal discharge 10/02/2022 05/03/2024 Encounters Date Type Department Care Team Description 01/09/2025 Refill [facility] [address] [facility] [address] [phone] Nedra Deleon MD Unspecified convulsions (Multi) from Last 3 Months Immunizations Immunization Administration Dates Next Due DTP 04/16/1994,02/12/1994,1993 DTaP, Unspecified 03/12/1999,01/07/1995 Flu vaccine (IIV4), preserva tive free *Check age/dose* 04/22/2023,04/21/2022,04/18/2021,05/06 Flu vaccine, quadrivalent, n o egg protein, age 6 month or greater (FLUCELVAX) 05/09/2019 Hepatitis B vaccine, 19 yrs and under (RECOMBIVAX, ENGERIX) 06/18/1994,01/08/1994,1993 Hepatitis B vaccine, adult * Check Product/Dose* 11/01/2023 HiB PRP-OMP conjugate vaccin e, pediatric (PEDVAXHIB) 10/22/1994,04/16/1994,02/12/1994,12/04 Hib (HbOC) 03/12/1999 Influenza, injectable, quadrivalent 04/28/2018 MMR vaccine, subcutaneous (MMR II) 03/12/1999, Meningococcal ACWY-D (Menact ra) 4-valent conjugate vaccine 02/25/2007 OPV 03/12/1999, 4,02/12/1994,12/04 PPD Test 11/30/2014,12/15/2013 Pneumococcal polysaccharide vaccine, 23-valent, age 2 years and older (PNEUMOVAX 23) 01/14/2016 Poliovirus vaccine, subcutan eous (IPOL) 10/22/1994 Tdap vaccine, age 7 year and older (BOOSTRIX, ADACEL) 06/08/2023,02/16/2018,03/02/2008 Family History Medical History Relation Name Comments Hypertension Father Bryn Cancer Maternal Grandfather Michael Cancer Paternal Grandmother Unknown Relation Name Status Comments Father Bryn Alive Maternal Grandfather Michael Alive Paternal Grandmother Unknown Alive Social History Tobacco Use Types Packs/Day Years Used Date Smoking Tobacco: Never Passive Smoke Exposure: Never Smokeless Tobacco: Never Tobacco Cessation:Counseling Given: Not Answered Alcohol Use Standard Drinks/Week Comments Yes 0 [...] on file Sexual Orientation Not on file Last Filed Vital Signs Vital Sign Reading Time Taken Comments Blood Pressure 122/96 09/12/2024 12:28 PM EST Pulse 71 09/12/2024 12:28 PM EST Temperature 36.3 C (97.3 F) 09/12/2024 12:28 PM EST Respiratory Rate 18 07/31/2022 10:54 AM EST Oxygen Saturation 100% 12/24/2021 11:32 AM EDT Inhaled Oxygen Concentration - - Weight 83.1 kg (183 lb 4 oz) 09/12/2024 12:28 PM EST Height 175.3 cm (5' 9 ) 09/12/2024 12:28 PM EST Body Mass Index 27.06 09/12/2024 12:28 PM EST Plan of Treatment Upcoming Encounters Date Type Department Care Team (Late st Contact Info) Description 02/12/2025 2:20 PM EDT Office Visit [facility] [address] [place] [phone] [place] [address] [place] [address] 05/01/2025 10:00 AM EDT Office Visit [address] Chiu [address] [address] Nedra Deleon MD [address] [place] [address] Dr [address]iu 2, [address] [id number] Health Maintenance Due Date Last Done Comments HIV Screening 1995 Varicella Vaccines (1 of 2 - 13+ 2-dose series) 2006 Hepatitis C Screening 10/02/2011 HPV/Cotest 2014 COVID-19 Vaccine ( season) 2024 05/27/2023 Yearly Adult Physical 05/14/2024 05/13/2023 , 07/31/2022, 07/31/2022, Additional history exists Influenza Vaccine (#1) 2025 , 04/21/2022, 04/18/2021, Additional history exists Cervical Cancer Screening 03/10/2026 Pap Smear 03/10/2026 03/10/2023, 02/17, 07/02/2020 Lipid Panel 09/12/2029 09/12/2024 DTaP/Tdap/Td Vaccines (9 - Td or Tdap) 06/08/2033 06/08/2023, 02/16/2018, 03/02/2008, Additional history exists Zoster Vaccines (1 of 2) 10/02/2043 HIB Vaccines Completed 03/12/1999, 0 12/1994, 04/16/1994, Additional history exists IPV Vaccines Completed 03/12/1999, 12/1994, 04/16/1994, Additional history exists MMR Vaccines Completed 03/12/1999, 10/22/1994 Meningococcal Vaccine Aged Out 02/25/2007 No crescencio larry eligible based on patient's age to complete this topic Pneumococcal Vaccine: Pediatrics and At-Risk Adult Patients Aged Out 01/14/2016 No longer eligible based on patient's age to complete this topic Hepatitis B Vaccines Completed 11/01/2023, 06/18/1994, 01/08/1994, Additional history exists HPV Vaccines (No Doses Required) Completed Hepatitis A Vaccines Aged Out No long er eligible based on patient's age to complete this topic Rotavirus Vaccines Aged Out No longer eligible based on patient's age to complete this topic Procedures Procedure Name Priority Date/Time Associated Diagnosis Comments LIPID PANEL Routine 09/12/2024 1:43 PM EST Well adult health check from Last 3 Months or Most Recently Relevant to Health Maintenance Results * Lipid Panel (09/12/2024 1:43 PM EST) CHOLESTEROL, TOTAL 167 <200 mg/dL [facility] HDL CHOLESTEROL 52 > OR = 50 mg/dL [facility] TRIGLYCERIDES 103 <150 mg/dL [facility] LDL-CHOLESTEROL 95 mg/dL (calc) [facility] Comment: Reference range: <100 Desirable range <100 mg/dL for primary prevention; <70 mg/dL for patients with CHD or diabetic patients with > or = 2 CHD risk factors. LDL-C is now calculated using the Dean calculation, which is a validated novel method providing better accuracy than the Friedewald equation in the estimation of LDL-C. Tres SS et al. STEPHANIE. 2013;310(19): 8254-4467 (http://education.[employer]/faq/WEE394) CHOL/HDLC RATIO 3.2 <5.0 (calc) [facility] NON HDL CHOLESTEROL 115 <130 mg/dL (calc) [facility] Comment: For patients with diabetes plus 1 major ASCVD risk factor, treating to a non-HDL-C goal of <100 mg/dL (LDL-C of <70 mg/dL) is considered a therapeutic option. Blood Venous blood specimen / Unknown 09/12/2024 1:43 PM EST 09/12/2024 1:44 PM EST Narrative [facility] - 09/13/2024 6:42 AM EST FASTING:YES FASTING: YES Suzanne Uriarte MD LAB BLOOD ORDERABLES Fin al Result [facility] [address] [facility], [address] [place] [phone] from Last 3 Months or Most Recently Relevant to Health Maintenance Insurance [facility] [employer] Care Teams Gypsum Roofer Relationship Specialty Start [place] [address] [address] [place] [address] PCP - General 08/14/20
--- OUTSIDE RECORDS SUMMARY | 2025-01-22 14:14 | XMS_ITS | Encounter Summary ---
Author Organization [facility] Address [address] [place] [address] Phone Care Team Providers Care Job Developer For Deaf Adults Name Role Phone Suzanne Uriarte MD Primary Care Provider + Encounter Details Date Type Department Care Team (Late st Contact Info) Description 09/19/2024 Patient Risk Score ACO Care Management [address] [place] [address] Social History Tobacco Use Types [...] suspected to have Coronavirus/COVID-19? No / Unsure 09/12/2024 12:17 PM EST documented as of this encounter Plan of Treatment Upcoming Encounters Date Type Department Care Team (Late st Contact Info) Description 02/12/2025 2:20 PM EDT Office Visit [facility] [address] [place] [phone] [place] [address] [place] [address] 05/01/2025 10:00 AM EDT Office Visit [address] Chiu [address] [phone] Nedra Deleon MD [address] [place] [address] Dr [address]iu 2, [address] [address] documented as of this encounter Visit Diagnoses Not on filedocumented in this encounter Additional Health Concerns Assessment Noted Time A fall risk assessment has been complete d for the patient 05/03/2024 9:18 AM EDT documented as of this encounter Care Teams Job Developer For Deaf Adults Relationship Specialty Start [place] [address] [place] [address] PCP - General 08/14/20 documented as of this encounter
--- OUTSIDE RECORDS SUMMARY | 2025-01-22 14:14 | XMS_ITS | Encounter Summary ---
Author Organization [facility] Address [address] [place] [address] Phone Care Team Providers Care Publications Writer Name Role Phone Suzanne Uriarte MD Primary Care Provider + Encounter Details Date Type Department Care Team (Late st Contact Info) Description 07/22/2024 Patient Risk Score AC Care Management [address] [place] [address] Social History Tobacco Use Types [...] Description 02/12/2025 2:20 PM EDT Office Visit [facility] [address] [address] [place] [address] [place] [address] 05/01/2025 10:00 AM EDT Office Visit [address] Chiu [address] [phone] Nedra Deleon MD [address] [place] [address] Dr Chiu 2, [address] [address] documented as of this encounter Visit Diagnoses Not on filedocumented in this encounter Additional Health Concerns Assessment Noted Time A fall risk assessment has been complete d for the patient 05/03/2024 9:18 AM EDT documented as of this encounter Care Teams Publications Writer Relationship Specialty Start [place] [address] [place] [address] PCP - General 08/14/20 documented as of this encounter
--- OUTSIDE RECORDS SUMMARY | 2025-01-22 14:14 | XMS_ITS | Encounter Summary ---
Author Organization [facility] Address [address] [facility] [place] [address] Care Team Providers Care New Media Strategist Name Role Phone Suzanne Uriarte MD Primary Care Provider [phone]- [phone] Encounter Details Date Type Department Care Team (Late st Contact Info) Description 07/20/2023 Clinisync Result Encounter [facility] External Department Unsolicited Lisa Chen, [address], [facility] Social History Tobacco Use Types Packs/Day Years [...] Routine [facility] BCP [place] [address] [place] [id number] Lisa Chen, [address] [place] [address] [phone] (work) documented as of this encounter Goals Goal Patient Goal Type Associated Problems Recent Progress Patient-Stated? Author Reminders Care Plan OB Reminders No Open Scheduling, Background documented as of this encounter Procedures Procedure Name Priority Date/Time Associated Diagnosis Comments US OB BPP W NON-STRESS 07/20/2023 7:11 AM EST documented in this encounter Results * US OB BPP W NON-STRESS (07/20/2023 7:11 AM EST) Anatomical Region Laterality Modality Other 07/20/2023 7:11 AM EST Narrative 07/20/2023 7:14 [place] [address] Ultrasound Report Signed Patient: PRINCESS CANTU MR#: [id number] : 1995 Acct:[id number] Age/Sex: 27 / F ADM Date: 07/17/23 Loc: US Attending Dr: Lisa Chen D.O. Ordering Physician: Lisa Chen D.O. Date of Service: 07/17/23 Procedure(s): US OB BPP w non-stress Accession Number(s): [id number] cc: Lisa Chen D.O.; Physician,Non-Staff M.No [place] [id number] Patient Name: PRINCESS CANTU MRN: [facility]:[id number] date: 1995 Sex: F Assigned Patient Location: US Current Patient Location: Accession/Order Number: [id number] Exam Date: 07/17/2023 11:20 Report Date: 07/20/2023 07:11 At the request of: LISA CHEN Procedure: US OB BPP w non-stress EXAMINATION: US OB BPP w non-stress HISTORY: HYPERTENSION COMPARISON: No relevant comparison available. TECHNIQUE: Ultrasound biophysical profile was performed in the radiology department. . FINDINGS: BREATHING MOVEMENTS: 2.0 GROSS BODY MOVEMENTS: 2.0 TONE: 2.0 QUALITATIVE AMNIOTIC FLUID VOLUME: 2.0 PRESENTATION: BREECH HEART RATE: 135.7 bpm H.B./min AMNIOTIC FLUID VOLUME: 15.3 cm cm GESTATIONAL AGE: 34 weeks 5 days CONCLUSION: Total biophysical profile score: 8.0 Electronically authenticated by: HAYLIE RIVER Date: 07/20/2023 07:11 Dictated By: Haylie River M.D. Signed By: 07/20/23713 DD/ 0 TD/TT: Rd Lab Technician: Procedure Note Radiology, Radiologist, MD - 09/22/2023 [place] [address] Ultrasound Report Signed Patient: PRINCESS CANTU AMR#: [id number] : 1995Acct:[id number] Age/Sex: 27 / FADM Date: 07/17/23 Loc: US Attending Dr: Lisa Chen D.O. Ordering Physician: Lisa Chen D.O. Date of Service: 07/17/23 Procedure(s): US OB BPP w non-stress Accession Number(s): [id number] cc: Lisa Chen D.O.; Physician,Non-Staff Jake The [place] [id number] Patient Name: PRINCESS CANTU MRN: [id number] date: 1995 Sex: F Assigned Patient Location: US Current Patient Location: Accession/Order Number: [id number] Exam Date: 07/17/2023 11:20 Report Date: 07/20/2023 07:11 At the request of: LISA CHEN Procedure: US OB BPP w non-stress EXAMINATION: US OB BPP w non-stress HISTORY: HYPERTENSION COMPARISON: No relevant comparison available. TECHNIQUE: Ultrasound biophysical profile was performed in the radiology department. . FINDINGS: BREATHING MOVEMENTS: 2.0 GROSS BODY MOVEMENTS: 2.0 TONE: 2.0 QUALITATIVE AMNIOTIC FLUID VOLUME: 2.0 PRESENTATION: BREECH HEART RATE: 135.7 bpm H.B./min AMNIOTIC FLUID VOLUME: 15.3 cm cm GESTATIONAL AGE: 34 weeks 5 days CONCLUSION: Total biophysical profile score: 8.0 Electronically authenticated by: HAYLIE RIVER Date: 07/20/2023 07:11 Dictated By: Haylie River M.D. Signed By:07/20/2314 DD/ 0 TD/TT: Rd Lab Technician: us Lisa April DO [facility] Final Result documented in this encounter Visit Diagnoses Not on filedocumented in this encounter Additional Health Concerns Active Problems Noted Date Diagnosed Date OB Reminders 01/14/2023 documented as of this encounter Care Teams New Media Strategist Relationship Specialty [place] [address] [address] [place] [address] PCP - General Family Medicine 01/14/23 documented as of this encounter
--- OUTSIDE RECORDS SUMMARY | 2025-01-22 14:14 | XMS_ITS | Encounter Summary ---
Author Organization [facility] Address [address] [place] [address] Phone Care Team Providers Care Em Physician Name Role Phone Suzanne Uriarte MD Primary Care Provider + Suzanne Uriarte MD Unavailable [phone] Encounter Details Date Type Department Care Team (Late Contact Info) Description 01/19/2024 Patient Risk Score ACO Care Management [address] [place] [address] Social History Tobacco Use Types [...] Description 02/12/2025 2:20 PM EDT Office Visit [facility] [address] [phone] [place] [address] [place], [place] [id number] 05/01/2025 10:00 AM EDT Office Visit [address] [place] [address] [place] [address] [facility] [address], [address] [address] documented as of this encounter Visit Diagnoses Not on filedocumented in this encounter Care Teams Em Physician Relationship Specialty Start [place] [address] [place] [address] PCP - General 08/14/20 [place] [address] [address] PCP - MMO ACO PCP 04/18/24 07/18/24 documented as of this encounter
--- OUTSIDE RECORDS SUMMARY | 2025-01-22 14:14 | XMS_ITS | Encounter Summary ---
Author Organization [facility] Address [address] [facility] [place] [address] Care Team Providers Care Percussion Instrument Tuner Name Role Phone Suzanne Uriarte MD Primary Care Provider [phone]- [phone] Encounter Details Date Type Department Care Team (Late st Contact Info) Description 06/17/2023 Clinisync Result Encounter [facility] External Department Unsolicited Lisa Chen, [address], [facility]11 Social History Tobacco Use Types Packs/Day Years [...] suspected to have Coronavirus/COVID-19? No / Unsure 06/16/2023 2:35 PM EST documented as of this encounter Plan of Treatment Upcoming Encounters Date Type Department Care Team (Late st Contact Info) Description 02/07/2025 3:10 PM EDT Routine [facility] BCP OB [address] [place] [phone] Lisa Chen, [address] [place] [address] [phone] (work) documented as of this encounter Goals Goal Patient Goal Type Associated Problems Recent Progress Patient-Stated? Author Reminders Care Plan OB Reminders No Open Scheduling, Background documented as of this encounter Procedures Procedure Name Priority Date/Time Associated Diagnosis Comments US OB GROWTH 06/17/2023 3:10 PM EST documented in this encounter Results * US OB GROWTH (06/17/2023 3:10 PM EST) Anatomical Region Laterality Modality Other 06/17/2023 3:10 PM EST Narrative 06/17/2023 3:10 [place] [address] Ultrasound Report Signed Patient: PRINCESS CANTU MR#: [id number] : 1995 Acct:[id number] Age/Sex: 27 / F ADM Date: 06/17/23 Loc: US Attending Dr: Lisa Chen D.O. Ordering Physician: Lisa Chen D.O. Date of Service: 06/17/23 Procedure(s): US OB growth Accession Number(s): [id number] cc: Lisa Chen D.O.; Physician,Non-Staff M.DLima [address] [address] Patient Name: PRINCESS CANTU MRN: [id number] date: 1995 Sex: F Assigned Patient Location: US Current Patient Location: US Accession/Order Number: [id number] Exam Date: 06/17/2023 08:05 Report Date: 06/17/2023 15:10 At the request of: LISA CHEN Procedure: US OB growth EXAMINATION: US OB growth HISTORY: LGA, FOLLOW UP CHOROID PLEXUS CYST COMPARISON: Ultrasound OB anatomy 04/06/2023 FINDINGS: Heart Rate: 153.0 bpm Number: 1.0 Position: BREECH Amniotic Fluid Volume: 16.7 cm Maximum Vertical Pocket: 4.7 cm BIOMETRY: BPD: 7.3 cm cm; 29 weeks 1 days; 9% HC: 28.4 cmcm; 31 weeks 1 days ; 33% AC: 26.2 cm cm; 30 weeks 2 days; 43% FL: 5.8 cm cm; 30 weeks 2 days; 33% EFW: 1551.7 grams; 34% FL/AC: 22.1 FL/BPD: 79.8 HC/AC: 1.1 GESTATIONAL AGE: Age by EDC: 30 weeks 3 days RAS by EDC: 08/23/2023 Age by US: 30 weeks 2 days RAS by US: 08/24/2023 US/US OB growth IMPRESSION: 1. Single live intrauterine with growth detailed above. Electronically authenticated by: CARLO MAIER Date: 06/17/2023 15:10 Dictated By: Carlo Maier M.D. Signed By: 06/17/231512 DD/ 09 TD/TT: Building Cleaner: Procedure Note Radiology, Radiologist, MD - 06/17/2023 [place] [address] Ultrasound Report Signed Patient: PRINCESS CANTU AMR#: [id number] : 1995Acct:[id number] Age/Sex: 27 FADM Date: 06/17/23 Loc: US Attending Dr: Lisa Chen D.O. Ordering Physician: Lisa Chen D.O. Date of Service: 06/17/23 Procedure(s): US OB growth Accession Number(s): [id number] cc: Lisa Chen D.O.; Physician,Non-Staff Jake The [place] [address] Patient Name: PRINCESS CANTU MRN: [id number] date: 1995 Sex: F Assigned Patient Location: US Current Patient Location: US Accession/Order Number: [id number] Exam Date: 06/17/2023 08:05 Report Date: 06/17/2023 15:10 At the request of: LISA CHEN Procedure: US OB growth EXAMINATION: US OB growth HISTORY: LGA, FOLLOW UP CHOROID PLEXUS CYST COMPARISON: Ultrasound OB anatomy 04/06/2023 FINDINGS: Heart Rate: 153.0 bpm Number: 1.0 Position: BREECH Amniotic Fluid Volume: 16.7 cm Maximum Vertical Pocket: 4.7 cm BIOMETRY: BPD: 7.3 cm cm; 29 weeks 1 days; 9% HC: 28.4 cmcm; 31 weeks 1 days ; 33% AC: 26.2 cm cm; 30 weeks 2 days; 43% FL: 5.8 cm cm; 30 weeks 2 days; 33% EFW: 1551.7 grams; 34% FL/AC: 22.1 FL/BPD: 79.8 HC/AC: 1.1 GESTATIONAL AGE: Age by EDC: 30 weeks 3 days RAS by EDC: 08/23/2023 Age by US: 30 weeks 2 days RAS by US: 08/24/2023 US/US OB growth IMPRESSION: 1. Single live intrauterine with growth detailed above. Electronically authenticated by: CARLO MAIER Date: 06/17/2023 15:10 Dictated By: Carlo Maier M.D. Signed By:06/17/231512 DD/ 09 TD/TT: Building Cleaner: us Lisa April DO [facility] Final Result documented in this encounter Visit Diagnoses Not on filedocumented in this encounter Additional Health Concerns Active Problems Noted Date Diagnosed Date OB Reminders 01/14/2023 documented as of this encounter Care Teams Percussion Instrument Tuner Relationship Specialty [place] [address] [place] [address] PCP - General Family Medicine 01/14/23 documented as of this encounter
--- OUTSIDE RECORDS SUMMARY | 2025-01-22 14:14 | XMS_ITS | Encounter Summary ---
Author Organization [facility] Address [address] [place] [address] Phone Care Team Providers Care International Marketing Coordinator Name Role Phone Suzanne Uriarte MD Primary Care Provider + Encounter Details Date Type Department Care Team (Late st Contact Info) Description 08/22/2024 Patient Risk Score AC Care Management [address] [place] [address] Social History Tobacco Use Types [...] 2:20 PM EDT Office Visit [facility] Primary Care [address] [place] [address] [place] [address] [place] [address] 05/01/2025 10:00 AM EDT Office Visit [address] [phone] Nedra Deleon MD [address] [place] [address] Dr [address], [address] [address] documented as of this encounter Visit Diagnoses Not on filedocumented in this encounter Additional Health Concerns Assessment Noted Time A fall risk assessment has been complete d for the patient 05/03/2024 9:18 AM EDT documented as of this encounter Care Teams International Marketing Coordinator Relationship Specialty Start [place] [address] [place] [address] PCP - General 08/14/20 documented as of this encounter
--- OUTSIDE RECORDS SUMMARY | 2025-01-22 14:14 | XMS_ITS | Encounter Summary ---
Author Organization [facility] Address [address] [place] [address] Phone Care Team Providers Care Manager Molecular Name Role Phone Suzanne Uriarte MD Primary Care Provider + Suzanne Uriarte MD Unavailable [phone] Suzanne Uriarte MD Unavailable [phone] Encounter Details Date Type Department Care Team (Late st Contact Info) Description 11/20/2023 Patient Risk Score ACO Care Management [address] [place] [address] Social History Tobacco Use Types [...] Description 02/12/2025 2:20 PM EDT Office Visit [facility] Primary Care [address] [address] [place] [address] [place], [place] [address] 05/01/2025 10:00 AM EDT Office Visit [address] [address] [place] [address] [facility] [address], [address] [address] documented as of this encounter Visit Diagnoses Not on filedocumented in this encounter Care Teams Manager Molecular Relationship Specialty Start [place] [address] [place] [address] PCP - General 08/14/20 [place] [address] [place] [address] PCP - MMO ACO PCP 07/19/23 12/17/23 [place] [address] [place] [address] PCP - MMO ACO PCP 04/18/24 07/18/24 documented as of this encounter
--- OUTSIDE RECORDS SUMMARY | 2025-01-22 14:14 | XMS_ITS | Encounter Summary ---
Author Organization [facility] Address [address] [facility] [place] [address] Care Team Providers Care Mangle Tender Cloth Name Role Phone Suzanne Uriarte MD Primary Care Provider [phone]- [phone] Encounter Details Date Type Department Care Team (Late st Contact Info) Description 08/03/2023 Clinisync Result Encounter [facility] External Department Unsolicited Lisa Chen, [facility] [place] [address] Social History Tobacco Use Types Packs/Day Years [...] Routine [facility] BCP OB [address] [place] [phone] Lisa Chen DO [address] [place] [address] [place] [address] documented as of this encounter Goals Goal Patient Goal Type Associated Problems Recent Progress Patient-Stated? Author Reminders Care Plan OB Reminders No Open Scheduling, Background documented as of this encounter Procedures Procedure Name Priority Date/Time Associated Diagnosis Comments US OB BPP W NON-STRESS 08/03/2023 7:18 AM EST documented in this encounter Results * US OB BPP W NON-STRESS (08/03/2023 7:18 AM EST) Anatomical Region Laterality Modality Other 08/03/2023 7:18 AM EST Narrative 08/03/2023 7:20 [place] [address] Ultrasound Report Signed Patient: KAVYA CANTU MR#: [id number] : 1995 Acct:[id number] Age/Sex: 27 / F ADM Date: 07/31/23 Loc: US Attending Dr: Lisa Chen D.O. Ordering Physician: Lisa Chen D.O. Date of Service: 07/31/23 Procedure(s): US OB BPP w non-stress Accession Number(s): [id number] cc: Lisa Chen D.O.; Physician,Non-Staff M.No The [place] [id number] Patient Name: KAVYA CANTU MRN: [id number] date: 1995 Sex: F Assigned Patient Location: Current Patient Location: Accession/Order Number: [id number] Exam Date: 07/31/2023 11:04 Report Date: 08/03/2023 07:18 At the request of: LISA CHEN Procedure: US OB BPP w non-stress EXAMINATION: US OB BPP w non-stress HISTORY: CHRONIC HYPERTENSION COMPARISON: No relevant comparison available. TECHNIQUE: Ultrasound biophysical profile was performed in the radiology department. FINDINGS: BREATHING MOVEMENTS: 2.0 GROSS BODY MOVEMENTS: 2.0 TONE: 2.0 QUALITATIVE AMNIOTIC FLUID VOLUME: 2.0 PRESENTATION: Breech HEART RATE: 138.5 bpm H.B./min AMNIOTIC FLUID VOLUME: 12.2 cm cm GESTATIONAL AGE: 36 weeks 5 days CONCLUSION: Total biophysical profile score: 8.0 Electronically authenticated by: HAYLIE RIVER Date: 08/03/2023 07:18 Dictated By: Haylie River M.D. Signed By: 08/03/23719 DD/ 7 TD/TT: Highway Engineer: Procedure Note Radiology, Radiologist, - 09/22/2023 [place] [address] Ultrasound Report Signed Patient: KAVYA CANTU AMR#: [id number] : 1995Acct:[id number] Age/Sex: 27 / FADM Date: 07/31/23 Loc: US Attending Dr: Lisa Chen D.O. Ordering Physician: Lisa Chen D.O. Date of Service: 07/31/23 Procedure(s): US OB BPP w non-stress Accession Number(s): [id number] cc: Lisa Chen D.O.; Physician,Non-Staff Jake The [place] [address] Patient Name: KAVYA CANTU MRN: [id number] date: 1995 Sex: F Assigned Patient Location: US Current Patient Location: US Accession/Order Number: [id number] Exam Date: 07/31/2023 11:04 Report Date: 08/03/2023 07:18 At the request of: LISA CHEN Procedure: US OB BPP w non-stress EXAMINATION: US OB BPP w non-stress HISTORY: CHRONIC HYPERTENSION COMPARISON: No relevant comparison available. TECHNIQUE: Ultrasound biophysical profile was performed in the radiology department. FINDINGS: BREATHING MOVEMENTS: 2.0 GROSS BODY MOVEMENTS: 2.0 TONE: 2.0 QUALITATIVE AMNIOTIC FLUID VOLUME: 2.0 PRESENTATION: Breech HEART RATE: 138.5 bpm H.B./min AMNIOTIC FLUID VOLUME: 12.2 cm cm GESTATIONAL AGE: 36 weeks 5 days CONCLUSION: Total biophysical profile score: 8.0 Electronically authenticated by: HAYLIE RIVER Date: 08/03/2023 07:18 Dictated By: Haylie River M.D. Signed By:08/03/23719 DD/ 0718 TD/TT: Highway Engineer: us Lisa April DO [facility] Final Result documented in this encounter Visit Diagnoses Not on filedocumented in this encounter Additional Health Concerns Active Problems Noted Date Diagnosed Date OB Reminders 01/14/2023 documented as of this encounter Care Teams Mangle Tender Cloth Relationship Specialty [place] [address] [place] [address] PCP - General Family Medicine 01/14/23 documented as of this encounter
--- OUTSIDE RECORDS SUMMARY | 2025-01-22 14:14 | XMS_ITS | Encounter Summary ---
Author Organization [facility] Address [address] [place] [address] Care Team Providers Care Industrial Hygienist Name Role Phone Suzanne Uriarte MD Primary Care Provider [phone]- [phone] Encounter Details Date Type Department Care Team (Late st Contact Info) Description 01/20/2023 Abstract [facility] OB [address] [place] [address] Willis Chen DO [facility] [address], [facility] Social History Tobacco Use Types Packs/Day [...] suspected to have Coronavirus/COVID-19? No / Unsure 01/07/2023 7:26 PM EDT documented as of this encounter Plan of Treatment Upcoming Encounters Date Type Department Care Team (Late st Contact Info) Description 02/07/2025 3:10 PM EDT Routine [facility] OB [address] [place] [address] Willis Chen DO [address] [place] [address] [place] [address] documented as of this encounter Goals Goal Patient Goal Type Associated Problems Recent Progress Patient-Stated? Author Reminders Care Plan OB Reminders No Open Scheduling, Background documented as of this encounter Visit Diagnoses Not on filedocumented in this encounter Additional Health Concerns Active Problems Noted Date Diagnosed Date OB Reminders 01/14/2023 documented as of this encounter Care Teams Industrial Hygienist Relationship Specialty Start [place] [address] [place] [address] PCP - General Family Medicine 01/14/23 documented as of this encounter
--- OUTSIDE RECORDS SUMMARY | 2025-01-22 14:14 | XMS_ITS | Encounter Summary ---
Author Organization [facility] Address [address] [facility] [place] [address] Care Team Providers Care Roof Cement And Paint Maker Name Role Phone Suzanne Uriarte MD Primary Care Provider +1- [phone] Encounter Details Date Type Department Care Team (Late st Contact Info) Description 04/07/2023 Clinisync Result Encounter NOMS External Department Unsolicited Lisa Chen, [address], [facility]11 Social History Tobacco Use Types Packs/Day [...] [facility]OMS BCP [place] [address] [place] [phone] Lisa Chen DO [address], [facility]11 documented as of this encounter Goals Goal Patient Goal Type Associated Problems Recent Progress Patient-Stated? Author Reminders Care Plan OB Reminders No Open Scheduling, Background documented as of this encounter Procedures Procedure Name Priority Date/Time Associated Diagnosis Comments US OB ANATOMY 04/07/2023 3:19 PM EDT documented in this encounter Results * US OB ANATOMY (04/07/2023 3:19 PM EDT) Anatomical Region Laterality Modality Other 04/07/2023 3:19 PM EDT Narrative 04/07/2023 3:19 [place] [address] Ultrasound Report Signed Patient: PRINCESS CANTU MR#: [id number] : 1995 Acct:[id number] Age/Sex: 27 / F ADM Date: 04/06/23 Loc: US Attending Dr: Lisa Chen D.O. Ordering Physician: Lisa Chen D.O. Date of Service: 04/06/23 Procedure(s): US OB anatomy Accession Number(s): [id number] cc: Lisa Chen D.O.; Physician,Non-Staff M.DLima [address] [address] Patient Name: PRINCESS CANTU MRN: [facility]:[id number] date: 1995 Sex: F Assigned Patient Location: US Current Patient Location: Accession/Order Number: [id number] Exam Date: 04/06/2023 20:36 Report Date: 04/07/2023 15:19 At the request of: LISA CHEN Procedure: US OB anatomy EXAMINATION: US OB anatomy HISTORY: SECOND TRIMESTER Z34.92 COMPARISON: No relevant comparison available. TECHNIQUE: Transabdominal sonographic examination was performed for obstetrical and evaluation. FINDINGS: Number: 1 Heart Rate: 147.5 bpm H.B. /min Amniotic Fluid Volume: Subjectively normal Placental Location: Posterior fundal; lower margin 6.4 cm from os. Cervix Length: 3.2 cm, closed. ANATOMY: Normal Structures -cerebellum, cisterna magna, lateral cerebral ventricles, orbits, midline falx, hard palate, four-chamber heart,, stomach, bladder, umbilical cord insertion into abdomen, three-vessel cord, right upper extremity, left upper extremity, right lower extremity, left lower extremity. SUBOPTIMALLY SEEN: Cardiac outflow tracts, kidneys, spine ABNORMALITIES: Choroid plexus cysts, 7 mm. BIOMETRY: BPD: 4.6 cm 19 weeks 5 days HC: 17.6 cm 20 weeks 1 days AC: 15.2 cm 20 weeks 3 days FL: 3.1 cm 19 weeks 5 days EFW:332.9 grams; 44% FL/AC: 20.6 FL/BPD: 68.8 HC/AC: 1.2 GESTATIONAL AGE: Age by EDC: 20 weeks 1 days RAS by EDC: 08/23/2023 Age by current US: 20 weeks 0 days RAS by current US: 08/24/2023 US/US OB anatomy IMPRESSION: 1. Single live intrauterine with growth detailed above. 2. Examination is slightly limited due to position. 3. Suboptimal visualization of the cardiac outflow tracts, kidneys, and spine. 4. Cord plexus cysts, 7 mm. Follow-up recommended. Electronically authenticated by: CARLO MAIER Date: 04/07/2023 15:19 Dictated By: Carlo Maier M.D. Signed By: 04/07/23 1521 DD/ 1519 TD/TT: Speech Therapist Technician: Procedure Note Radiology, Radiologist, MD - 04/09/2023 [place] [address] Ultrasound Report Signed Patient: PRINCESS CANTU AMR#: [id number] : 1995Acct:[id number] Age/Sex: 27 FADM Date: 04/06/23 Loc: US Attending Dr: Lisa Chen D.O. Ordering Physician: Lisa Chen D.O. Date of Service: 04/06/23 Procedure(s): US OB anatomy Accession Number(s): [id number] cc: Lisa Chen D.O.; Physician,Non-Staff Jake [address] [address] Patient Name: PRINCESS CANTU MRN: [id number] date: 1995 Sex: F Assigned Patient Location: US Current Patient Location: Accession/Order Number: [id number] Exam Date: 04/06/2023 20:36 Report Date: 04/07/2023 15:19 At the request of: LISA CHEN Procedure: US OB anatomy EXAMINATION: US OB anatomy HISTORY: SECOND TRIMESTER Z34.92 COMPARISON: No relevant comparison available. TECHNIQUE: Transabdominal sonographic examination was performed for obstetrical and evaluation. FINDINGS: Number: 1 Heart Rate: 147.5 bpm H.B. /min Amniotic Fluid Volume: Subjectively normal Placental Location: Posterior fundal; lower margin 6.4 cm from os. Cervix Length: 3.2 cm, closed. ANATOMY: Normal Structures -cerebellum, cisterna magna, lateral cerebral ventricles, orbits, midline falx, hard palate, four-chamber heart,,stomach, bladder, umbilical cord insertion into abdomen, three-vessel cord, rightupper extremity, left upper extremity, right lower extremity, left lowerextremity. SUBOPTIMALLY SEEN: Cardiac outflow tracts, kidneys, spine ABNORMALITIES: Choroid plexus cysts, 7 mm. BIOMETRY: BPD: 4.6 cm 19 weeks 5 days HC: 17.6 cm 20 weeks 1 days AC: 15.2 cm 20 weeks 3 days FL: 3.1 cm 19 weeks 5 days EFW:332.9 grams; 44% FL/AC: 20.6 FL/BPD: 68.8 HC/AC: 1.2 GESTATIONAL AGE: Age by EDC: 20 weeks 1 days RAS by EDC: 08/23/2023 Age by current US: 20 weeks 0 days RAS by current US: 08/24/2023 US/US OB anatomy IMPRESSION: 1. Single live intrauterine with growth detailed above. 2. Examination is slightly limited due to position. 3. Suboptimal visualization of the cardiac outflow tracts, kidneys, andspine. 4. Cord plexus cysts, 7 mm. Follow-up recommended. Electronically authenticated by: CARLO MAIER Date: 04/07/2023 15:19 Dictated By: Carlo Maier M.D. Signed By:04/07/23 1521 DD/ 1519 TD/TT: Speech Therapist Technician: us Lisa Chen DO [facility] Final Result documented in this encounter Visit Diagnoses Not on filedocumented in this encounter Additional Health Concerns Active Problems Noted Date Diagnosed Date OB Reminders 01/14/2023 documented as of this encounter Care Teams Roof Cement And Paint Maker Relationship Specialty Start [place] [address] [address] PCP - General Family Medicine 01/14/23 documented as of this encounter
--- OUTSIDE RECORDS SUMMARY | 2025-01-22 14:14 | XMS_ITS | Encounter Summary ---
Author Organization [facility] Address [address] [place] [address] Phone Care Team Providers Care Medical Records Library Professor Name Role Phone Suzanne Uriarte MD Primary Care Provider + Suzanne Uriarte MD Unavailable [phone] Suzanne Uriarte MD Unavailable Encounter Details Date Type Department Care Team (Late st Contact Info) Description 10/21/2023 Patient Risk Score ACO Care Management [address] [place] [address] Social History Tobacco Use Types [...] Description 02/12/2025 2:20 PM EDT Office Visit [facility] [address] [address] [place] [address] [place], [place] [id number] 05/01/2025 10:00 AM EDT Office Visit [address] [address] [place] [address] [facility] [address], [address] [address] documented as of this encounter Visit Diagnoses Not on filedocumented in this encounter Care Teams Medical Records Library Professor Relationship Specialty Start [place] [address] [place] [address] PCP - General 08/14/20 [place] [address] [place] [address] PCP - MMO ACO PCP 07/19/23 12/17/23 [place] [address] [place] [address] PCP - MMO ACO PCP 04/18/24 07/18/24 documented as of this encounter
--- OUTSIDE RECORDS SUMMARY | 2025-01-22 14:14 | XMS_ITS | Encounter Summary ---
Author Organization [facility] Address [address] [facility] [place] [address] Care Team Providers Care Willow Worker Name Role Phone Suzanne Uriarte MD Primary Care Provider +1- [phone] Encounter Details Date Type Department Care Team (Late st Contact Info) Description 05/04/2023 Clinisync Result Encounter NOMS External Department Unsolicited Lisa Chen, [address], [facility]11 Social History Tobacco Use Types Packs/Day [...] suspected to have Coronavirus/COVID-19? No / Unsure 05/07/2023 9:39 AM EDT documented as of this encounter Plan of Treatment Upcoming Encounters Date Type Department Care Team (Late st Contact Info) Description 02/07/2025 3:10 PM EDT Routine [facility] BCP OB [address] [place] [phone] Lisa Chen, [address], [facility]11 (work) documented as of this encounter Goals Goal Patient Goal Type Associated Problems Recent Progress Patient-Stated? Author Reminders Care Plan OB Reminders No Open Scheduling, Background documented as of this encounter Procedures Procedure Name Priority Date/Time Associated Diagnosis Comments US OB FOLLOW UP 05/04/2023 7:10 AM EDT documented in this encounter Results * US OB FOLLOW UP (05/04/2023 7:10 AM EDT) Anatomical Region Laterality Modality Radiographic Dayana ging 05/04/2023 7:10 AM EDT Narrative 05/04/2023 7:10 [place] [address] Ultrasound Report Signed Patient: PRINCESS CANTU MR#: [id number] : 1995 Acct:[id number] Age/Sex: 27 / F ADM Date: 05/03/23 Loc: US Attending Dr: Lisa Chen D.O. Ordering Physician: Lisa Chen D.O. Date of Service: 05/03/23 Procedure(s): US OB follow up Accession Number(s): [id number] cc: Lisa Chen D.O.; Physician,Non-Staff M.DLima The [address] [address] Patient Name: PRINCESS CANTU MRN: [facility]:[id number] date: 1995 Sex: F Assigned Patient Location: US Current Patient Location: Accession/Order Number: [id number] Exam Date: 05/03/2023 19:00 Report Date: 05/04/2023 07:10 At the request of: LISA CHEN Procedure: US OB follow up EXAMINATION: US OB follow up HISTORY: ENCOUNTER FOR FOLLOW UP ANATOMY Z 36.2 COMPARISON: 04/06/2023 FINDINGS: Heart Rate: 149.2 bpm Amniotic Fluid Volume: Subjectively normal Number: 1.0 Position: Breech presentation, head transverse maternal right Normal anatomy: RVOT, LVOT, kidneys Abnormal anatomy: 6.2 x 5.5 mm choroid plexus cyst Nonvisualization: spine secondary to positioning GESTATIONAL AGE: Age by EDC: 24 weeks 0 days RAS by EDC: 08/23/2023 US/US OB follow up IMPRESSION: 6.2 mm choroid plexus cyst Electronically authenticated by: HAYLIE RIVER Date: 05/04/2023 07:10 Dictated By: Haylie River M.D. Signed By: 05/04/23711 DD/ 9 TD/TT: Switchboard And Control Room Operator: Procedure Note Radiology, Radiologist, MD - 05/04/2023 [place] [address] Ultrasound Report Signed Patient: PRINCESS CANTU AMR#: [id number] : 1995Acct:[id number] Age/Sex: 27 / FADM Date: 05/03/23 Loc: US Attending Dr: Lisa Chne D.O. Ordering Physician: Lisa Chen D.O. Date of Service: 05/03/23 Procedure(s): US OB follow up Accession Number(s): [id number] cc: Lisa Chen D.O.; Physician,Non-Staff Jake The [address] [address] Patient Name: PRINCESS CANTU MRN: [facility]:[id number] date: 1995 Sex: F Assigned Patient Location: US Current Patient Location: Accession/Order Number: [id number] Exam Date: 05/03/2023 19:00 Report Date: 05/04/2023 07:10 At the request of: LISA CHEN Procedure: US OB follow up EXAMINATION: US OB follow up HISTORY: ENCOUNTER FOR FOLLOW UP ANATOMY Z 36.2 COMPARISON: 04/06/2023 FINDINGS: Heart Rate: 149.2 bpm Amniotic Fluid Volume: Subjectively normal Number: 1.0 Position: Breech presentation, head transverse maternal right Normal anatomy: RVOT, LVOT, kidneys Abnormal anatomy: 6.2 x 5.5 mm choroid plexus cyst Nonvisualization: spine secondary to positioning GESTATIONAL AGE: Age by EDC: 24 weeks 0 days RAS by EDC: 08/23/2023 US/US OB follow up IMPRESSION: 6.2 mm choroid plexus cyst Electronically authenticated by: HAYLIE RIVER Date: 05/04/2023 07:10 Dictated By: Haylie River M.D. Signed By:05/04/23711 DD/ 9 TD/TT: Switchboard And Control Room Operator: us Lisa April DO IMG XR PROCEDURES Final Result documented in this encounter Visit Diagnoses Not on filedocumented in this encounter Additional Health Concerns Active Problems Noted Date Diagnosed Date OB Reminders 01/14/2023 documented as of this encounter Care Teams Willow Worker Relationship Specialty Start [place] [address] [place] [address] PCP - General Family Medicine 01/14/23 documented as of this encounter
--- OUTSIDE RECORDS SUMMARY | 2025-01-22 14:14 | XMS_ITS | Encounter Summary ---
Author Organization [facility] Address [address] [facility] [place] [address] Care Team Providers Care Realtime Captioner Name Role Phone Suzanne Uriarte MD Primary Care Provider +1- [phone] Reason for Visit * Reason Comments Med Refill Encounter Details Date Type Department Care Team (Late st Contact Info) Description 12/08/2022 Refill [facility] OB [address] [place] [phone] Willis Chen DO [facility] [address], [place] [address] Encounter for other general counseling and advice on procreation Social History Tobacco Use Types Packs/Day Years [...] Routine [facility] BCP OB [address] [place] [phone] Willis Chen, DO [facility] [address], [place] [id number] documented as of this encounter Visit Diagnoses Diagnosis Encounter for other general counseling and advice on procreation documented in this encounter Care Teams Realtime Captioner Relationship Specialty Start [place] [address] [place] [address] PCP - General Family Medicine 01/14/23 documented as of this encounter
--- OUTSIDE RECORDS SUMMARY | 2025-01-22 14:14 | XMS_ITS | Encounter Summary ---
Author Organization [facility] Address [address] [facility] [place] [address] Care Team Providers Care Triple Valve Tester Name Role Phone Suzanne Uriarte MD Primary Care Provider +1- [phone] Encounter Details Date Type Department Care Team (Late st Contact Info) Description 08/02/2023 Abstract [facility] BCP OB [address] [facility] [place] [address] Lynette Engel LPN [address] [employer] [facility] [address] [place], [place] [id number] Social History Tobacco Use Types Packs/Day Years [...] PM EDT Routine [facility] BCP OB [address] [facility] [place] [address] Willis Chen, DO [address] [facility] [address] [place], [place] [address] documented as of this encounter Goals Goal Patient Goal Type Associated Problems Recent Progress Patient-Stated? Author Reminders Care Plan OB Reminders No Open Scheduling, Background documented as of this encounter Visit Diagnoses Not on filedocumented in this encounter Additional Health Concerns Active Problems Noted Date Diagnosed Date OB Reminders 01/14/2023 documented as of this encounter Care Teams Triple Valve Tester Relationship Specialty Start [place] [address] [place], [place] [id number] PCP - General Family Medicine 01/14/23 documented as of this encounter
--- OUTSIDE RECORDS SUMMARY | 2025-01-22 14:14 | XMS_ITS | Encounter Summary ---
Author Organization [facility] Address [address] [facility] [place] [address] Care Team Providers Care Bus System Operator Name Role Phone Suzanne Uriarte MD Primary Care Provider +1- [phone] Encounter Details Date Type Department Care Team (Late st Contact Info) Description 08/04/2023 Abstract [facility] BCP OB [address] [facility] [address] Willis Chen [address] [place], [place] [id number] Social History Tobacco Use Types Packs/Day Years [...] PM EDT Routine [facility] BCP OB [address] [facility] [place] [address] Willis Chen [address] [place] [place], [place] [address] documented as of this encounter Goals Goal Patient Goal Type Associated Problems Recent Progress Patient-Stated? Author Reminders Care Plan OB Reminders No Open Scheduling, Background documented as of this encounter Visit Diagnoses Not on filedocumented in this encounter Additional Health Concerns Active Problems Noted Date Diagnosed Date OB Reminders 01/14/2023 documented as of this encounter Care Teams Bus System Operator Relationship Specialty Start [place] [address] [place], [place] [address] PCP - General Family Medicine 01/14/23 documented as of this encounter
--- OUTSIDE RECORDS SUMMARY | 2025-01-22 14:14 | XMS_ITS | Encounter Summary ---
Author Organization [facility] Address [address] [place] [address] Phone Care Team Providers Care Ornamental Iron Worker Helper Name Role Phone Suzanne Uriarte MD Primary Care Provider + Reason for Visit * Reason Comments Med Refill Encounter Details Date Type Department Care Team (Late st Contact Info) Description 01/09/[address] Chiu [address] [address] Nedra Deleon MD [address] [place] [address] Dr [address], [place] [id number] Unspecified convulsions (Multi) Social History Tobacco Use Types Packs/Day Years [...] Description 02/12/2025 2:20 PM EDT Office Visit [facility] Primary Care [address] [address] [place] [address] [place], [place] [phone] 05/01/2025 10:00 AM EDT Office Visit [address] Chiu [address] [phone] Nedra Deleon MD [address] [place] [address] Dr [address], [address] [address] documented as of this encounter Visit Diagnoses Diagnosis Unspecified convulsions (Multi) documented in this encounter Additional Health Concerns Assessment Noted Time A fall risk assessment has been complete d for the patient 05/03/2024 9:18 AM EDT documented as of this encounter Care Teams Ornamental Iron Worker Helper Relationship Specialty Start [place] [address] [place] [address] PCP - General 08/14/20 documented as of this encounter
--- OUTSIDE RECORDS SUMMARY | 2025-01-22 14:14 | XMS_ITS | Encounter Summary ---
Author Organization [facility] Address [address] [facility] [place] [address] Care Team Providers Care Evaporator Repairer Name Role Phone Suzanne Uriarte MD Primary Care Provider +1- [phone] Encounter Details Date Type Department Care Team (Late st Contact Info) Description 08/02/2023 Abstract [facility] BCP OB [address] [facility] [place] [address] Lynette Engel LPN [address] [employer] [facility] [place], [place] [address] Social History Tobacco Use Types Packs/Day Years [...] PM EDT Routine [facility] BCP OB [address] [facility] [place] [address] Willis Chen, DO [address] [facility] [address] [place], [place] [address] documented as of this encounter Goals Goal Patient Goal Type Associated Problems Recent Progress Patient-Stated? Author Reminders Care Plan OB Reminders No Open Scheduling, Background documented as of this encounter Visit Diagnoses Not on filedocumented in this encounter Additional Health Concerns Active Problems Noted Date Diagnosed Date OB Reminders 01/14/2023 documented as of this encounter Care Teams Evaporator Repairer Relationship Specialty Start [place] [address] [place], [place] [phone] PCP - General Family Medicine 01/14/23 documented as of this encounter
[2025-01-22 15:02] LABS: Hematocrit 36.9 % (36.0-48.0); Hemoglobin 12.3 g/dL (12.0-16.0); Immature Granulocytes Abs Auto 0.02 10^3/uL (0.00-0.03); Immature Granulocytes Pct Auto 0.2 % (0.0-0.5); Lymphocytes Absolute Auto 3.0 10^3/uL (1.2-3.8); Mean Corpuscular HGB Conc 33.3 g/dL (29.9-35.2); Mean Corpuscular Hemoglobin 28.9 pg (26.7-34.0); Mean Corpuscular Volume 86.6 fL (81.0-99.0); Platelet Count 222 10^3/uL (150-450); Red Blood Count 4.26 10^6/uL (4.20-5.40); White Blood Count 8.1 10^3/uL (4.0-11.0)
[2025-01-22 15:21] LABS: Cannabinoid Screen Urine NEGATIVE (NEGATIVE); Methamphetamines Screen Urine NEGATIVE (NEGATIVE); Tricyclic Antidepressant Urine NEGATIVE (NEGATIVE)
[2025-01-23 08:08] LABS: Rubella Antibodies, IgG 1.16 index (Immune >0.99)
[2025-01-23 14:08] LABS: Rapid Plasma Reagin, Quant Non Reactive titer (NonRea<1:1)
== END 2025-01-22 14:07 | disposition home or self-care (01) ==
PROVIDERS: PCP Family Medicine; Visit Provider Obstetrics & Gynecology
DX: Z34.01 Encounter for supervision of normal first pregnancy, first trimester (principal); N92.6 Irregular menstruation, unspecified
CPT/HCPCS: 36415; 80307; 83036; 85025; 86592; 86762; 86803; 86850; 86900; 86901; 87086; 87340; 87389

== ENCOUNTER 2025-01-30 19:52 | Emergency (ER) | payer OTHER, SELFPAY ==
[2025-01-30 19:54] VITALS: BP 153/107; PULSE 89; TEMP 36.9; O2SAT 98; BMI 26.3
--- NOTE | 2025-01-30 20:06 | US_ITS ---
[place] [id number] Patient Name: PRINCESS HUNTER MRN: [id number] date: 1995 Sex: F Assigned Patient Location: ED.MAIN Current Patient Location: ED.MAIN Accession/Order Number: [id number] Exam Date: 01/30/2025 21:41 Report Date: 01/30/2025 21:47 At the request of: SHIMA RODAS Procedure: US OB transvaginal US OB transvaginal 01/30/2025 9:30 PM SIGNS AND SYMPTOMS: ^11/13/24 ^vaginal bleeding \S.br\ COMPARISON: None. TECHNIQUE: Limited pelvic ultrasound using transvesical sonography. FINDINGS: An intrauterine is identified. The yolk sac is visualized measuring 5 mm in diameter. The visualized fetus has an estimated gestational age of 11 weeks and 3 days by crown-rump length which measures 4.56 cm . A heart rate is identified at 166 bpm. A subjectively normal amount of amniotic fluid is present. In the left side of the uterus there is a hypoechoic presumed fluid collection measuring 2.0 x 2.5 x 1.1 cm in greatest dimension. This may represent a focus of subchorionic hemorrhage. The relation to the placenta is not well demonstrated on these images. Pelvic survey reveals no gross abnormalities. The cervix measures 4.2 cm in length. The cervical os is closed. US/US OB transvaginal IMPRESSION: Single live IUP with an estimated gestational age of 11 weeks and 3 days with a normal heart rate. In the left side of the uterus there is a hypoechoic presumed fluid collection measuring 2.0 x 2.5 x 1.1 cm in greatest dimension. This may represent a focus of subchorionic hemorrhage. The relation to the placenta is not well demonstrated on these images. Impression dictated by: Olvin Tovar M.D. 01/30/2025 9:47 PM Dictation Location: [facility] Electronically authenticated by: [id number] Y Date: 01/30/2025 21:47
--- NOTE | 2025-01-30 20:07 | ED.GENADUL1 ---
HPI HPI - General Adult General Chief complaint: OB/Uterine Contractions Stated complaint: 11 week bleeding Time Seen by Provider: 01/30/25 19:52 Source: patient Mode of arrival: walk-in Limitations: no limitations History of Present Illness HPI narrative: 29-year-old female 3 para 1 presents emergency room chief complaint vaginal bleeding. states previous miscarriage early 5-6 weeks. She is approximately 11 weeks . She had a definitive ultrasound 2 weeks ago showing single live intrauterine . She said today she started having vaginal cramping and a large amount of bleeding. She is A+ blood type. She states she had had constipation over the last couple of days was trying to have a bowel movement and noticed bleeding. Patient has been using Zofran for nausea occasionally. She says the cramping is now stopped continues to have some bleeding. heart tones were assessed on arrival here at 165. Related Data Home Medications ?Medication ?Instructions ?Recorded ?Confirmed labetalol 200 mg tablet 200 mg PO BID 07/21/23 11/19/23 lamotrigine 100 mg tablet 100 mg PO Q12H 07/21/23 11/19/23 Previous Rx's ?Medication ?Instructions ?Recorded docusate sodium 100 mg capsule 100 mg PO DAILY #30 caps 01/30/25 (Colace) Allergies Allergy/AdvReac Type Severity Reaction Status Date / Time No Known Drug Allergies Allergy Verified 01/30/25 20:02 Opioid HPI Opioid Management Most Recent Opioid Data: Last Pain Scale 1 08/06/23, 22:36 Ur Phencyclidine Scrn, (NEGATIVE) Negative 01/22/25, 14:17 Review of Systems ROS Status of ROS 10 or more systems reviewed and unremarkable except as noted in history and below PFSH PFSH Social History Little interest or pleasure in doing things: not at all Feeling down, depressed, or hopeless: not at all Exam Narrative Exam Narrative: All Systems are negative except as noted/marked.All systems reviewed and otherwise negative Nurses note and vital signs reviewed and patient is not hypoxic. General: The patient appears well and in no apparent distress. Patient is resting comfortably on cart. Skin: Warm, dry, no pallor noted. There is no rash noted. Head: Normocephalic, atraumatic Eye: Normal conjunctiva, no drainage, EOMI. PERRL Ears, Nose, Mouth, and Throat: oral mucosa is moist. Nares patent. Mouth without vesicles. Ear canals patent. Tm's without Erythema Cardiovascular: Regular Rate and Rhythm Respiratory: Patient is in no distress, no accessory muscle use, lungs are clear to auscultation, no wheezing, rales or rhonchi Back: non-tender, no CVA tenderness bilaterally to percussion. GI: Normal bowel sounds, no tenderness to palpation, no masses appreciated. No rebound, guarding, or rigidity noted. Musculoskeletal: The patient has no evidence of calf tenderness, no pitting edema, symmetrical pulses noted bilaterally Neurological: A&O x4, normal speech Psychiatric: Cooperative Constitutional Vital Signs, click to edit/add: Last Vital Signs Temp 98.4 F 01/30/25 19:54 Pulse 89 01/30/25 19:54 Resp 01/30/25 19:54 BP 126/84 01/30/25 20:17 Pulse Ox 98 01/30/25 19:54 O2 Del Method Room Air 01/30/25 19:54 Course Vital Signs Vital signs: Vital Signs Temperature 98.4 F 01/30/25 19:54 Pulse Rate 89 01/30/25 19:54 Respiratory Rate 01/30/25 19:54 Blood Pressure 153/107 H 01/30/25 19:54 Pulse Oximetry 98 01/30/25 19:54 Oxygen Delivery Method Room Air 01/30/25 19:54 Temperature 98.4 F 01/30/25 19:54 Pulse Rate 89 01/30/25 19:54 Respiratory Rate 20 01/30/25 19:54 Blood Pressure 126/84 01/30/25 20:17 Pulse Oximetry 98 01/30/25 19:54 Oxygen Delivery Method Room Air 01/30/25 19:54 Medical Decision Making [facility] Narrative Medical decision making narrative: 29-year-old female 8 positive blood type presenting here with chief complaint of vaginal bleeding. Upon arrival to the emergency room heart tones were assessed at 165 bpm. Patient is currently bleeding. Patient will have an OB ultrasound performed here to this evening. I did see the patient instructed patient to follow-up with her [facility] office tomorrow morning. She is to have pelvic rest. Upon arrival to the emergency room patient had a heart tones of 165 she did go over her ultrasound which shows a subchorionic hematoma. I spoke to Dr. Chen her [facility] he will see her in 48 hours he will repeat ultrasound at that time. Patient understands plan of care. She is to do pelvic rest and no work until she follow-up in the office on 02/01/2025. Patient is doing well at this time. She will be discharged to home. Differential Diagnosis Differential Diagnosis: vaginal bleeding with , threatened ab Medical Records Medical records reviewed: Yes I reviewed the patient's medical records Lab Data Lab results reviewed: Yes I reviewed the patient's lab results Discharge Plan Discharge Chief Complaint: OB/Uterine Contractions Clinical Impression: Vaginal bleeding during Patient Disposition: Home, Self-Care Condition: Good Prescriptions / Home Meds: New docusate sodium [Colace] 100 mg capsule 100 mg PO DAILY Qty: 30 0RF No Action lamotrigine 100 mg tablet 100 mg PO Q12H labetalol 200 mg tablet 200 mg PO BID Print Language: Turkmen Instructions: Subchorionic Hemorrhage (ED) Additional Instructions: pelvic rest and no work until follow up in office on 02/01/25 Referrals: Willis Chen DO [Physician, [facility]] - 02/01/25 Referral Note: call to schedule appointment for morning KOFFI WINTERS MD [Primary Care Provider] - 1 week
--- OUTSIDE RECORDS SUMMARY | 2025-01-30 20:14 | XMS_ITS | CCD ---
Author Organization [facility] Care Team Providers Care Finisher Machine Name Role Phone Uriarte, Koffi A Unavailable [...] Uriarte MD A Primary Care Provider Milagro Hughes Primary Care Physician Unavail able BRENDAN BLANKENSHIP Attending Unavailable URIARTE, KOFFI A Primary Care Unavailabl e GEORGIA DWYER Attending Unavailable URIARTE, KOFFI A Primary Care Unavailabl e KAVITA SWEET Referring Unavailable URIARTE, KOFFI A Primary Care Unavailabl e BRENDAN BLANKENSHIP Attending Unavailable URIARTE, KOFFI A Primary Care Unavailabl e Unavailable Unavailable ELSIE ., DR GONZALEZ Admitting Unavailable ELSIE ., DR GONZALEZ Attending Unavailable ELSIE ., DR GONZALEZ Consulting Unavailable ELSIE ., DR GONZALEZ Admitting Unavailable ELSIE ., DR GONZALEZ Attending Unavailable HIGHLAND, DR HAYLIE Garcia Consulting Unavailable ELSIE ., DR GONZALEZ Consulting Unavailable Chapito, Dr. Koffi Rosas Primary Care Dario Uriarte, Dr. Koffi Rosas Attending Dario Uriarte, Dr. Koffi Rosas Referring Koffi Oquendo MD Primary Care Provider Koffi Uriarte MD Unavailable [phone] Willis Chen Attending Unavailable Willis Chen Admitting Unavailable Provider, None Primary Care Unavailable TARAS FAUSTIN Admitting Unavailable TARAS FAUSTIN Attending Unavailable Vernon PABLO Attending Unavailable MILAGRO HUGHES Primary Care Unavailable Spenser COLLINS Attending Unavailable MILAGRO HUGHES Primary Care Unavailable Koffi Uriarte MD Primary Care Provider NEDRA CALDERON Attending Unavailable KOFFI URIARTE Primary Care UnavailKOFFI Aguilera Attending UnavailKOFFI Aguilera Primary Care Unavailmary Uriarte MD, Koffi Primary Care Provider [phone] Allergies Allergy Classification Reported Allergen(s) Allergy Type Date of Onset Reaction(s) Facility (2 sources) No Known Medication Allergies; Translations: [No Known Medication Allergies] Propensity to adverse reactions (disorder) [facility] Repository Medications Current Medications Medication Drug [...] by mouth daily. 0 Active labetalol hydrochloride 300 mg oral tablet (5 sources) beta-Adrenergic Francoise Start: 09-12-2024 End: 03-11-2025 take 1 tablet by mouth twice daily labetalol (Normodyne) 300 mg tablet Indications: Benign essential hypertension Take 1 tablet (300 mg) by mouth 2 times a day. 60 tablet 5 09/12/2024 03/11/2025 Active Start: 11-09-2023 End: 09-12-2024 take 1 tablet by mouth twice daily labetalol (Normodyne) 200 MG tablet Indications: Secondary hypertension TAKE 1 TABLET BY MOUTH TWICE A DAY 60 tablet 3 09/06/2024 Active lamoTRIgine 100 mg oral tablet (20 sources) Mood Stabilizer, Anti-epileptic Agent Start: 01-03-2024 take 1 tablet by mouth twice daily lamoTRIgine (LaMICtal) 100 mg tablet Indications: Unspecified convulsions (Multi) TAKE 1 TABLET BY MOUTH TWICE A DAY 60 tablet 11 01/03/2024 Active Start: 11-09-2023 take 100 mg by mouth once jovon y Lamotrigine Active 100 MG PO Daily November 09, 2023 12:00am Start: 08-14-2020 take 1 tablet by [facility] twice daily lamoTRIgine 100 MG Oral Tablet [...] (Therapy completed) lisinopril 10 mg oral tablet (20 sources) Angiotensin Converting Enzyme Inhibitor Start: 05-13-2023 End: 05-03-2024 take 1 tablet by mouth once daily lisinopril 10 mg tablet Indications: Benign essential hypertension Take 1 tablet (10 mg) by mouth once daily. 90 tablet 3 05/13/2023 05/03/2024 Discontinued (Med List Cleanup) Start: 03-09-2023 End: 04-30-2023 take 1 tablet [...] release oral tablet (1 source) Biguanide Start: 023 End: take 1 tablet by mouth once daily at mealtime metFORMIN XR 500 mg 24 hr tablet Take 1 tablet (500 mg) by mouth once daily in the evening. Take with meals. 0 11/16/2022 04/30/2023 Discontinued (Therapy completed) naproxen 500 mg oral tablet (1 source) Nonsteroidal Anti-inflammatory Drug Start: 019 take 1 tablet by mouth twice daily Naprosyn 500 mg Tab 500 mg = 1 tab(s), Oral, BID, # 120 tab(s), Refills(s) 0, [facility]: [id number] Start Date: 06/05/19 Status: Ordered ondansetron 4 mg disintegrating oral tablet (4 sources) Serotonin-3 Receptor Antagonist Start: 025 End: 025 take 1 tablet by mouth every six hours for nausea ondansetron ODT (Zofran-ODT) 4 MG disintegrating tablet Indications: Nausea and vomiting in ([facility]) Take 1 tablet (4 mg) by mouth every 6 (six) hours if needed for nausea or vomiting 30 tablet 2 01/12/2025 02/11/2025 Active Start: 11-09-2023 take 4 mg by mouth e very eight hours Ondansetron Hcl Active 4 MG PO Every 8 hours November 09, 2023 12:00am Start: 02-10-2023 End: 05-03-2024 take 2 tablets by mouth twice daily as needed for nausea ondansetron (Zofran) 4 mg tablet Take 2 tablets (8 mg) by mouth 2 times a day as needed for nausea. 02/10/2023 05/03/2024 Discontinued (Med List Cleanup) MV-Min-Fe Fum-FA-DH A ( 1 PO) (1 source) MV-Min- Fe Fum-FA-DHA ( 1 PO) Take by mouth Active sodium chloride flush 0.9 % injection [...] Vaginal, BID, 70 gram, Refill(s) 0, [id number] Start Date: 06/09/19 Stop Date: 06/14/19 [...] Problem Classification Problem Date Documented Date Episodic/Chronic Anxiety disorders (20 sources) Anxiety; Translations: [Anxiety state, unspecified] Onset: 10-02-2022 10-02-2022 Chronic Contraceptive and procreative management (7 sources) Contraception ; Translations: [Encounter for surveillance of contraceptives, unspecified] Onset: 07-02-2015 07-02-2015 Episodic Epilepsy; convulsions (1 source) Idiopathic generalized epilepsy; Translations: [Nonintractable generalized idiopathic epilepsy without status epilepticus (HCC)] Chronic Essential hypertension (20 sources) Benign essential hypertension; Translations: [Benign essential hypertension] Onset: 10-02-2022 Resolved: 09-12-2024 10-02-2022 Chronic Hemorrhage during ; abruptio placenta; placenta previa (2 sources) Antepartum hemorrhage; Translations: [Hemorrhage in early , unspecified] Onset: 04-16-2022 Episodic Immunizations and screening for infectious disease (2 sources) Encounter for screening for infections with a predominantly sexual mode of transmission; Translations: [Screening examination for sexually transmitted disease] Onset: 07-04-2021 Episodic Malaise and fatigue (4 sources) Fatigue; Translations: [Other fatigue] Onset: 09-12-2024 09-12-2024 Episodic Nutritional deficiencies (3 sources) Vitamin D deficiency; Translations: [Vitamin D deficiency, unspecified] Onset: 09-12-2024 09-12-2024 Chronic Nutritional deficiencies (20 sources) Cobalamin deficiency; Translations: [Other B-complex deficiencies] Onset: 10-02-2022 10-02-2022 Episodic Other nutritional; endocrine; and metabolic disorders (3 sources) Obese class I; Translations: [Obesity, unspecified] Onset: 07-04-2021 07-04-2021 Chronic Other upper respiratory infections (20 sources) Chronic sinusitis; Translations: [Chronic pansinusitis] Onset: 10-02-2022 Resolved: 05-03-2024 10-02-2022 Chronic Otitis media and related conditions (5 sources) Chronic otitis media; Translations: [Bilateral chronic otitis media] Chronic Unclassified (1 source) Unknown / UNK(Unknown) Onset: 05-04-2017 Unclassified (3 sources) APPOINTMENT CANCELLED Onset: 08-09-2017 08-09-2017 Unclassified (1 source) OB Reminders Onset: 01-14-2023 01-14-2023 Past or Other Problems Problem Classification Problem Date Documented Da te Episodic/Chronic Acute and chronic tonsillitis (9 sources) Amygdalolith; 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 Calderon. lamotrigine; Inflammatory diseases of female pelvic organs (18 sources) Bacterial vaginosis; Translations: [Vaginitis and vulvovaginitis, unspecified] Onset: 07-04-2021 Resolved: 05-03-2024 Episodic Malposition; malpresentation (1 source) Breech presentation; Translations: [Maternal care for breech presentation, not applicable or unspecified] Onset: 07-29-2023 07-29-2023 Episodic Nonspecific chest pain (20 sources) Chest pain; Translations: [Chest pain, unspecified] Onset: 10-02-2022 Resolved: 05-03-2024 10-02-2022 Episodic Other circulatory disease (20 sources) Feeling of lump in throat; Translations: [Gastrointestinal malfunction arising from mental factors] Onset: 10-02-2022 Resolved: 05-03-2024 10-02-2022 Episodic Other circulatory disease (20 sources) Elevated blood-pressure reading without diagnosis of hypertension; Translations: [Elevated blood pressure reading without diagnosis of hypertension] Onset: 10-02-2022 Resolved: 05-03-2024 10-02-2022 Episodic Other ear and sense organ disorders (20 sources) Conductive hearing loss, bilateral; Translations: [Conductive hearing loss, bilateral] Onset: 10-02-2022 Resolved: 05-03-2024 10-02-2022 Chronic Other female genital disorders (16 sources) Vaginal discharge; Translations: [Leukorrhea, not specified as infective] Onset: 10-02-2022 Resolved: 05-03-2024 10-02-2022 Episodic Other nutritional; endocrine; and metabolic disorders (9 sources) Obesity; Translations: [Obesity, unspecified] Onset: 03-28-2023 Resolved: 05-03-2024 03-28-2023 Chronic Other nutritional; endocrine; and metabolic disorders (19 sources) Abnormal weight gain; Translations: [Abnormal weight gain] Onset: 10-02-2022 Resolved: 05-03-2024 10-02-2022 Episodic Other skin disorders (20 sources) Loss of hair; Translations: [Alopecia, unspecified] Onset: 10-02-2022 Resolved: 05-03-2024 10-02-2022 Episodic Other upper respiratory disease (20 sources) Allergic rhinitis; Translations: [Allergic rhinitis, cause unspecified] Onset: 10-02-2022 Resolved: 05-03-2024 10-02-2022 Chronic Otitis media and related conditions (19 sources) Chronic otitis media; Translations: [Unspecified otitis media] Onset: 10-02-2022 Resolved: 05-03-2024 10-02-2022 Episodic Residual codes; unclassified (20 sources) Insomnia; Translations: [Insomnia, unspecified] Onset: 10-02-2022 Resolved: 05-03-2024 10-02-2022 Episodic Unclassified (1 source) R07.9 15997/[id number] Onset: 05-04-2017 Unclassified (5 sources) Patient encounter status; Translations: [Encounter for audiology evaluation] Unclassified (2 sources) Onset: 05-03-2024 05-03-2024 NEGATED: Highlighted row has not occurred!Residual codes; unclassified (17 sources) Disease Episodic Results Test Name Value Interpretation Reference Range Facility BOX TESTon 01-22-2025 BOX TEST SENT OUT YES [facility] BOX1 UNITY [facility] BOX2 01/22/25 [facility] US OB TRANSVAGINALon 01-12-2 025 US OB TRANSVAGINAL EXAM: US OB TRANSVAGINAL HISTORY: Dating. COMPARISON: [...] II, MD, PHD at 14-Jan-2025 10:04:37 PM [facility] Normal Not Available Comment on above: Order Comment: US OB TRANSVAGINAL No LMP recorded. 25-hydroxyvitamin D3 [Mass/V ol]on 09-13-2024 25-hydroxyvitamin D [Mass/Vol] 26 ng/mL Low 30 - 100 ng/mL [facility] Comment on above: Vitamin D Status 25- [place] Vitamin D: Deficiency: <20 ng/mL Insufficiency: 20 - 29 ng/mL Optimal: > or = 30 ng/mL For 25-OH Vitamin D testing on patients on D2-supplementation and patients for whom quantitation of D2 and D3 fractions is required, the QuestAssureD(TM) 25-OH VIT D, (D2,D3), LC/MS/MS is recommended: order code 72777 (patients >2yrs). See Note 1 Note 1 For additional information, please refer to http://education.[employer]/faq/YWA881 (This link is being provided for informational/ educational purposes only.) Interpretation and review of laboratory results Abnormal [facility] CBC (H/H, RBC, INDICES, WBC, PLT)on 09-13-2024 Erythrocyte distribution width (RBC) [Ratio] 12.3 % Normal 11.0-15.0 [facility] Comment on above: Performed By: #### 7 600, 87659, 30674, 927, 1759, 34503 #### [facility] [address] [facility], [address] [place] [id number] Quality Officer: Brandon Camara MD Hematocrit (Bld) [Volume fraction] 38.8 % Normal 35.0-45.0 [facility] Comment on above: Performed By: #### 7 600, 63020, 74751, 927, 1759, 03563 #### [facility] [address] [facility], [address] [place] [address] Quality Officer: Brandon Camara MD Hemoglobin (Bld) [Mass/Vol] 12.7 g/dL Normal 11.7-15.5 [facility] Comment on above: Performed By: #### 7 600, 68351, 00829, 927, 175, #### [facility] [place] [address] Quality Officer: Brandon Camara MD MCH (RBC) [Entitic mass] 28.4 pg Normal 27.0-33.0 [facility] Comment on above: Performed By: #### 7 600, 78483, 27962, 927, 175, #### [facility] [place] [address] Quality Officer: Brandon Camara MD MCHC (RBC) [Mass/Vol] 32.7 g/dL Normal 32.0-36.0 [facility] Comment on above: Result Comment: For adults, a slight decrease in the calculated MCHC value (in the range of 30 to 32 g/dL) is most likely not clinically significant; however, it should be interpreted with caution in correlation with other red cell parameters and the patient's clinical condition. Performed By: #### 7 600, 58637, 25176, 927, 175, #### [facility] [place] [address] Quality Officer: Brandon Camara MD MCV (RBC) [Entitic vol] 86.8 fL Normal 80.0-100.0 [facility] Comment on above: Performed By: #### 7 600, 33632, 85986, 927, 175, #### [facility] [place] [address] Quality Officer: Brandon Camara MD Platelet mean volume (Bld) [Entitic vol] 9.0 fL Normal 7.5-12.5 [facility] Comment on above: Performed By: #### 7 600, 23287, 16725, 927, 1759, #### [facility] of [address], [address] [place] [address] Quality Officer: Brandon Camara MD Platelets (Bld) [#/Vol] 260 10*3/uL Normal 140-400 [facility] Comment on above: Performed By: #### 7 600, 36545, 44019, 927, 1759, 58015 #### [facility] [address], [address] [place] [address] Quality Officer: Brandon Camara MD RBC (Bld) [#/Vol] 4.47 10*6/uL Normal 3.80-5.10 [facility] Comment on above: Performed By: #### 7 600, 53749, 52455, 927, 1759, #### [facility] of [address], [address] [place] [address] Quality Officer: Brandon Camara MD WBC (Bld) [#/Vol] 5.5 10*3/uL Normal 3.8-10.8 [facility] Comment on above: Performed By: #### 7 600, 08338, 95997, 927, 1759, #### [facility] of [place] [address] Quality Officer: Brandon Camara MD CBC panel Auto (Bld)on 09-13 Erythrocyte distribution width (RBC) [Ratio] 12.3 % 11.0 - 15.0 % [facility] Hematocrit (Bld) [Volume fraction] 38.8 % 35.0 - 45.0 % [facility] Hemoglobin (Bld) [Mass/Vol] 12.7 g/dL 11.7 - 15.5 g/dL [facility] MCH (RBC) [Entitic mass] 28.4 pg 27.0 - 33.0 pg [facility] MCHC (RBC) [Mass/Vol] 32.7 g/dL 32.0 - 36.0 g/dL [facility] Comment on above: For adults, a slight decrease in the calculated MCHC value (in the range of 30 to 32 g/dL) is most likely not clinically significant; however, it should be interpreted with caution in correlation with other red cell parameters and the patient's clinical condition. MCV (RBC) [Entitic vol] 86.8 fL 80.0 - 100.0 fL [facility] Platelet mean volume (Bld) [Entitic vol] 9 fL 7.5 - 12.5 fL [facility] Platelets (Bld) [#/Vol] 260 10*3/uL [facility] RBC (Bld) [#/Vol] 4.47 10*6/uL [facility] WBC (Bld) [#/Vol] 5.5 10*3/uL [facility] COMPREHENSIVE METABOLIC PANE L W/ANION GAPon 09-13-2024 Albumin [Mass/Vol] 4.8 g/dL Normal 3.6-5.1 [facility] Comment on above: Performed By: #### 7 600, 86333, 02216, 927, 1759, 64184 #### [facility] [place] [address] Quality Officer: Brandon Camara MD ALP [Catalytic activity/Vol] 60 U/L Normal 31-125 [facility] Comment on above: Performed By: #### 7 600, 73721, 24612, 927, 1759, 06175 #### [facility] [place] [address] Quality Officer: Brandon Camara MD ALT [Catalytic activity/Vol] 14 U/L Normal 6-29 [facility] Comment on above: Performed By: #### 7 600, 35946, 15310, 927, 1759, 48887 #### [facility] [place] [address] Quality Officer: Brandon Camara MD AST [Catalytic activity/Vol] 12 U/L Normal 10-30 [facility] Comment on above: Performed By: #### 7 600, 41450, 28758, 927, 1759, 12250 #### [facility] [place] [address] Quality Officer: Brandon Camara MD Bilirubin [Mass/Vol] 0.4 mg/dL Normal 0.2-1.2 [facility] Comment on above: Performed By: #### 7 600, 89540, 29747, 927, 175, 47245 #### [facility] [place] [address] Quality Officer: Brandon Camara MD Calcium [Mass/Vol] 9.6 mg/dL Normal 8.6-10.2 [facility] Comment on above: Performed By: #### 7 600, 82636, 99131, 927, 175, #### [facility] [place] [address] Quality Officer: Brandon Camara MD Chloride [Moles/Vol] 102 mmol/L Normal 98-110 [facility] Comment on above: Performed By: #### 7 600, 52171, 43342, 927, 175, #### [facility] [place] [address] Quality Officer: Brandon Camara MD CO2 [Moles/Vol] 28 mmol/L Normal 20-32 [facility] Comment on above: Performed By: #### 7 600, 92275, 79430, 927, 175, #### [facility] [place] [address] Quality Officer: Brandon Camara MD Creatinine [Mass/Vol] 0.86 mg/dL Normal 0.50-0.97 [facility] Comment on above: Performed By: #### 7 600, 30206, 14273, 927, 175, #### [facility] [place] [address] Quality Officer: Brandon Camara MD ELECTROLYTE BALANCE 7 mmol/L (calc) Normal 7-17 [facility] Comment on above: Performed By: #### 7 600, 34664, 51708, 927, 175, #### [facility] [place] [address] Quality Officer: Brandon Camara MD GFR/1.73 sq M.predicted among non-blacks MDRD (S/P/Bld) [Vol rate/Area] 93 mL/min/{1.73_m2} Normal > OR = 60 [facility] Comment on above: Performed By: #### 7 600, 89065, 56458, 927, 175, #### [facility] [place] [address] Quality Officer: Brandon Camara MD Glucose [Mass/Vol] 90 mg/dL Normal 65-99 [facility] Comment on above: Result Comment: Fasting reference interval Performed By: #### 7 600, 88431, 86435, 927, 175, #### [facility] [place] [address] Quality Officer: Brandon Camara MD Potassium [Moles/Vol] 4.5 mmol/L Normal 3.5-5.3 [facility] Comment on above: Performed By: #### 7 600, 86940, 85806, 927, 175, #### [facility] [place] [address] Quality Officer: Brandon Camara MD Protein [Mass/Vol] 7.4 g/dL Normal 6.1-8.1 [facility] Comment on above: Performed By: #### 7 600, 98300, 59068, 927, 175, #### [facility] [place] [address] Quality Officer: Brandon Camara MD Sodium [Moles/Vol] 137 mmol/L Normal 135-146 [facility] Comment on above: Performed By: #### 7 600, 43351, 65896, 927, 175, #### [facility] [place] [address] Quality Officer: Brandon Camara MD Urea nitrogen [Mass/Vol] 7 mg/dL Normal 7-25 [facility] Comment on above: Performed By: #### 7 600, 51493, 27570, 926, 9754, 84799 #### [facility] [address] [facility], [address] [place] [address] Quality Officer: Brandon Camara MD Comprehensive metabolic 2000 panelon 09-13-2024 Albumin [Mass/Vol] 4.8 g/dL 3.6 - 5.1 g/dL [facility] ALP [Catalytic activity/Vol] 60 U/L 31 - 125 U/L [facility] ALT [Catalytic activity/Vol] 14 U/L 6 - 29 U/L [facility] Anion gap [Moles/Vol] 7 mmol/L [facility] AST [Catalytic activity/Vol] 12 U/L 10 - 30 U/L [facility] Bilirubin [Mass/Vol] 0.4 mg/dL 0.2 - 1 .2 mg/dL [facility] Calcium [Mass/Vol] 9.6 mg/dL 8.6 - 10. 2 mg/dL [facility] Chloride [Moles/Vol] 102 mmol/L 98 - 11 0 mmol/L [facility] CO2 [Moles/Vol] 28 mmol/L 20 - 32 mmol/L [facility] Creatinine [Mass/Vol] 0.86 mg/dL 0.50 - 0.97 mg/dL [facility] GFR/1.73 sq M.predicted among non-blacks MDRD (S/P/Bld) [Vol rate/Area] 93 mL/min/{1.73_m2} > OR = 60 mL/min/1.73m2 [facility] Glucose [Mass/Vol] 90 mg/dL 65 - 99 mg/dL [facility] Comment on above: Fasting reference interval Potassium [Moles/Vol] 4.5 mmol/L 3.5 - 5.3 mmol/L [facility] Protein [Mass/Vol] 7.4 g/dL 6.1 - 8.1 g/dL [facility] Sodium [Moles/Vol] 137 mmol/L 135 - 146 mmol/L [facility] Urea nitrogen [Mass/Vol] 7 mg/dL 7 - 25 mg/dL [facility] LIPID PANEL, STANDARDon 02- Cholesterol [Mass/Vol] 167 mg/dL Normal <200 [facility] Comment on above: Order Comment: FASTI NG:YES FASTING: YES Performed By: #### 7 600, 77508, 25904, 927, 1759, 81840 #### [facility] [address], [address] [place], [place] [id number] Quality Officer: Brandon Camara MD Cholesterol in HDL [Mass/Vol] 52 mg/dL Normal > OR = 50 [facility] Comment on above: Order Comment: FASTI NG:YES FASTING: YES Performed By: #### 7 600, 91361, 31556, 927, 1759, 46179 #### [facility] [address], [address] [place], [place] [id number] Quality Officer: Brandon Camara MD Cholesterol in LDL [Mass/Vol] 95 mg/dL Normal [facility] Comment on above: Order Comment: FASTI NG:YES FASTING: YES Result Comment: Refe rence range: <100 Desirable range <100 mg/dL for primary prevention; <70 mg/dL for patients with CHD or diabetic patients with > or = 2 CHD risk factors. LDL-C is now calculated using the Dean calculation, which is a validated novel method providing better accuracy than the Friedewald equation in the estimation of LDL-C. Tres RODRIGEZ et al. STEPHANIE. 2013;310(19): 2896-0675 (http://education.[employer]/faq/FDU357) Performed By: #### 7 600, 85403, 48250, 927, 1759, 14911 #### [facility] [address], [address] [place], [place] [id number] Quality Officer: Brandon Camara MD Cholesterol.total/Chol esterol in HDL [Mass ratio] 3.2 {ratio} Normal <5.0 [facility] Comment on above: Order Comment: FASTI NG:YES FASTING: YES Performed By: #### 7 600, 42765, 10940, 927, 1759, 37654 #### [facility] [address], [address] [place] [address] Quality Officer: Brandon Camara MD NON HDL CHOLESTEROL 115 mg/dL (calc) Normal <130 [facility] Comment on above: Order Comment: FASTI NG:YES FASTING: YES Result Comment: For patients with diabetes plus 1 major ASCVD risk factor, treating to a non-HDL-C goal of <100 mg/dL (LDL-C of <70 mg/dL) is considered a therapeutic option. Performed By: #### 7 600, 58755, 91455, 927, 1759, 14445 #### [facility] [address], [address] [place] [address] Quality Officer: Brandon Camara MD Triglyceride [Mass/Vol] 103 mg/dL Normal <150 [facility] Comment on above: Order Comment: FASTI NG:YES FASTING: YES Performed By: #### 7 600, 23505, 59681, 927, 1759, 54956 #### [facility] [address], [address] [place] [address] Quality Officer: Brandon Camara MD Lipid 1996 panel 5 Cholesterol [Mass/Vol] 167 mg/dL [facility] - 200 mg/dL [facility] Cholesterol in HDL [Mass/Vol] 52 mg/dL > OR = 50 [facility] Cholesterol in LDL [Mass/Vol] 95 mg/dL mg/dL (calc) [facility] [facility] Comment on above: Reference range: <10 0 Desirable range <100 mg/dL for primary prevention; <70 mg/dL for patients with CHD or diabetic patients with > or = 2 CHD risk factors. LDL-C is now calculated using the Dean calculation, which is a validated novel method providing better accuracy than the Friedewald equation in the estimation of LDL-C. Tres RODRIGEZ et al. STEPHANIE. 2013;310(19): 0143-9395 (http://education.1Rebel.[employer]/faq/YSB249) Cholesterol non HDL [Mass/Vol] 115 mg/dL [facility] Comment on above: For patients with di abetes plus 1 major ASCVD risk factor, treating to a non-HDL-C goal of <100 mg/dL (LDL-C of <70 mg/dL) is considered a therapeutic option. Cholesterol.total/Chol esterol in HDL [Mass ratio] 3.2 {ratio} [facility] Triglyceride [Mass/Vol] 103 mg/dL [facility] - 150 mg/dL [facility] No Panel Informationon 09-13 FASTING:YES FASTING: YES [facility] TSH W/REFLEX TO FT4on 2024 TSH W/REFLEX TO FT4 2.63 mIU/L Normal [facility] Comment on above: Result Comment: Refe rence Range > or = 20 Years 0.40-4.50 Ranges First trimester 0.26-2.66 Second trimester 0.55-2.73 Third trimester 0.43-2.91 Performed By: #### 7 600, 27435, 20653, 927, 1759, 15466 #### [facility] [address], [address] [place], [place] [id number] Quality Officer: Brandon Camara MD TSH with reflex to Free T4 i f abnormalon 09-13-2024 TSH Qn 2.63 m[IU]/L mIU/L [facility] Comment on above: Reference Range > or = 20 Years 0.40-4.50 Ranges First trimester 0.26-2.66 Second trimester 0.55-2.73 Third trimester 0.43-2.91 VITAMIN B12on 09-13-2024 Cobalamin (Vitamin B12) [Mass/Vol] 402 pg/mL Normal 200-1100 [facility] Comment on above: Performed By: #### 7 600, 17945, 29031, 927, 1759, 85851 #### [facility] [address], [address] [place], [place] [address] Quality Officer: Brandon Camara MD VITAMIN D,25-OH,TOTAL,IAon 0 09-13-2024 VITAMIN D,25-OH,TOTAL,IA 26 ng/mL Low 30-100 [facility] Comment on above: Result Comment: Stefanie min D Status 25-OH Vitamin D: Deficiency: <20 ng/mL Insufficiency: 20 - 29 ng/mL Optimal: > or = 30 ng/mL For 25-OH Vitamin D testing on patients on D2-supplementation and patients for whom quantitation of D2 and D3 fractions is required, the QuestAssureD(TM) 25-OH VIT D, (D2,D3), LC/MS/MS is recommended: order code 99271 (patients >2yrs). See Note 1 Note 1 For additional information, please refer to http://education.gamigo/faq/DIY887 (This link is being provided for informational/ educational purposes only.) Performed By: #### 7 600, 91440, 19496, 927, 1759, 34855 #### [place] [id number] [facility], [address] [place] [address] Quality Officer: Brandon Camara MD Vitamin B12on 09-13-2024 Cobalamin (Vitamin B12) [Mass/Vol] 402 pg/mL 200 - 1100 pg/mL [facility] Quantiferon-TB Plus (Client Incubated)on 04-02-2024 Gamma interferon background IA Qn (Bld) 0.01 International_Unit/mL Invalid Interpretation Code [facility] Comment on above: Performed By: #### 1 [id number] #### [facility] [address] [place] [address] M. tuberculosis stim IFN-g by CD4+ CD8+ T-cells corrected for background Qn (Bld) 0.02 International_Unit/mL Invalid Interpretation Code [facility] Comment on above: Performed By: #### 1 [id number] #### [facility] [address] [place] [address] M. tuberculosis stim IFN-g by CD4+ T-cells corrected for background Qn (Bld) 0.03 International_Unit/mL Invalid Interpretation Code [facility] Comment on above: Performed By: #### 1 [id number] #### [facility] [address] [place] [address] M. tuberculosis stim IFN-g Ql (Bld) [Interp] Negative Invalid Interpretation Code Negative [facility] Comment on above: Result Comment: No r esponse to M tuberculosis antigens detected. Infection with [...] interferon gamma. Chemiluminescence immunoassay methodology Performed at: [facility] [employer] [address] [id number] PhD Leeanne Garcia Performed By: #### 1 [id number] #### [facility] [address] [place] [address] Mitogen stimulated gamma interferon corrected for background Qn (Bld) >10.00 Invalid Interpretation Code [facility] Comment on above: Performed By: #### 1 [id number] #### [facility] [address] [place] [address] Service comment (Unsp spec) [Interp] Comment Invalid Interpretation Code [facility] Comment on above: Result Comment: Be tiFERON-TB Gold Plus is a qualitative indirect test for M tuberculosis infection (including disease) and is intended for use in conjunction with risk assessment, radiography, and other medical and diagnostic evaluations. The QuantiFERON-TB Gold Plus result is determined by subtracting the Nil value from either TB antigen (Ag) value. The Mitogen tube serves as a control for the test. Performed By: #### 1 [id number] #### [facility] [address] [place] [address] Hep Bs Abon 03-31-2024 HBV surface Ab Ql (S) Reactive Invalid Interpretation Code [facility] Comment on above: Result Comment: Non Reactive: Not immune to HBV infection. Equivocal: Unable to determine if anti-HBs is present at levels consistent with immunity. Reactive: Anti-HBs concentration detected at greater than 10 mIU/mL. Individual is considered to be immune to infection with HBV. Performed at: [place] [address] [id number] PhD Leeanne Garcia Performed By: #### 2 [id number] #### [facility] [address] [place] [address] Measles/Mumps/Rubella Immuni tyon 03-31-2024 MeV IgG IA Qn (S) 206.0 A unit/mL Invalid Interpretation Code Immune >16.4 [facility] Comment on above: Result Comment: Nega tive <13.5 Equivocal 13.5 - 16.4 Positive >16.4 Presence of antibodies to Rubeola is presumptive evidence of immunity except when acute infection is suspected. Performed By: #### 3 [id number] #### [facility] [address] [place] [address] MuV IgG IA Qn (S) 38.5 A unit/mL Invalid Interpretation Code Immune >10.9 [facility] Comment on above: Result Comment: Nega tive <9.0 Equivocal 9.0 - 10.9 Positive >10.9 A positive result generally indicates past exposure to Mumps virus or previous vaccination. Performed at: [facility] [id number] PhD Leeanne Garcia Performed By: #### 3 [id number] #### [facility] [address] [place] [address] Rubella virus IgG Qn (S) 1.07 [IU]/mL Invalid Interpretation Code Immune >0.99 [facility] Comment on above: Result Comment: Non- immune <0.90 Equivocal 0.90 - 0.99 Immune >0.99 Performed By: #### 3 [id number] #### [facility] [address] [place] [address] Varic IgGon 03-31-2024 VZV IgG IA Qn (S) 1518 Invalid Interpretation Code Immune >165 [facility] Comment on above: Result Comment: Nega tive <135 Equivocal 135 - 165 Positive >165 A positive result generally indicates exposure to the pathogen or administration of specific immunoglobulins, but it is not indication of active infection or stage of disease. Performed at: [address] [place], [place] [id number] PhD Leeanne Garcia Performed By: #### 1 [id number] #### [facility] [address] [place] [address] Consent Formson 12-16-2023 Consent Forms [id number] [facility] ED Clinical Summaryon 2023 ED Clinical Summary [facility] ? Urgent Care [address] [place], [place] [id number] Clinical Summary PERSON INFORMATION Name: PRINCESS GUERRERO Age: 28 Years Sex: FEMALE : 1995 MRN: Acct#: Visit Reason: Medical screening exam; OTTERBEIN PHYSICAL Arrival: 12/15/2023 11:27:18 Discharge: 12/15/2023 11:57:00 LOS: 000 00:30 Check In: 12/15/2023 11:27:18 Checkout: 12/15/2023 11:57:00 Address: [address] [place] [address] PCP: Provider, None PROVIDER INFORMATION Provider Role Assigned Unassigned TARAS FAUSTIN ED PA 12/15/2023 11:30:13 Rosa England MA ED Nurse 12/15/2023 11:36:19 VITALS INFORMATION Vital Sign Triage Latest Temperature Tympanic Temperature Temporal Artery Pulse Rate O2 Sat 99 % 99 % Respiratory Rate Blood Pressure /93 mmHg /93 mmHg MEDICAL INFORMATION Medications Given: Allergy Information: No known allergies PHYSICIAN DOCUMENTATION DISCHARGE INFORMATION: Discharge Disposition: Home Discharge Location: Home PATIENT EDUCATION INFORMATION Instructions: Hypertension, Adult Follow-Up: With: Address: When: Your primary provider in your hometown Within 2 to 4 days Comments: Follow-up for reevaluation of your blood pressure. With: Address: When: None Provider [address] [place] [address] DIAGNOSIS: Elevated blood pressure reading; Physical exam Patient Understands: Yes - Patient/family/caregiv er verbalizes understanding of instructions given Comment: [facility] ED Patient Summaryon 024 ED Patient Summary [facility] ? Urgent Care [address] [place] [id number] PATIENT DISCHARGE INSTRUCTIONS Patient Information Name: PRINCESS GUERRERO Age: 28 Years Date of : 1995 [facility]: [id number] Reason For Visit: Medical screening exam; ANNETTE PHYSICAL Arrival Time: 12/15/2023 11:27:18 Primary Care Physician: Provider, None Attending Physician: TARAS FAUSTIN Comment: Patient Education With: Address: When: Your primary provider in your hometown Within 2 to 4 days Comments: Follow-up for reevaluation of your blood pressure. With: Address: When: None Provider [address] [place] [address] Hypertension, Adult High blood pressure (hypertension) is when the force of blood pumping through the arteries is too strong. The arteries are the blood vessels that carry blood from the heart throughout the body. Hypertension forces the heart to work harder to pump blood and may cause arteries to become narrow or stiff. Untreated or uncontrolled hypertension can lead to a heart attack, heart failure, a stroke, kidney disease, and other problems. A blood pressure reading consists of a higher number over a lower number. Ideally, your blood pressure should be below 120/80. The first ( top ) number is called the systolic pressure. It is a measure of the pressure in your arteries as your heart beats. The second ( bottom ) number is called the diastolic pressure. It is a measure of the pressure in your arteries as the heart relaxes. What are the causes? The exact cause of this condition is not known. There are some conditions that result in high blood pressure. What increases the risk? Certain factors may make you more likely to develop high blood pressure. Some of these risk factors are under your control, including: ? Smoking. ? Not getting enough exercise or physical activity. ? Being overweight. ? Having too much fat, sugar, calories, or salt (sodium) in your diet. ? Drinking too much alcohol. Other risk factors include: ? Having a personal history of heart disease, diabetes, high cholesterol, or kidney disease. ? Stress. ? Having a family history of high blood pressure and high cholesterol. ? Having obstructive sleep apnea. ? Age. The risk increases with age. What are the signs or symptoms? High blood pressure may not cause symptoms. Very high blood pressure (hypertensive crisis) may cause: ? Headache. ? Fast or irregular heartbeats (palpitations). ? Shortness of breath. ? Nosebleed. ? Nausea and vomiting. ? Vision changes. ? Severe chest pain, dizziness, and seizures. How is this diagnosed? This condition is diagnosed by measuring your blood pressure while you are seated, with your arm resting on a flat surface, your legs uncrossed, and your feet flat on the floor. The cuff of the blood pressure monitor will be placed directly against the skin of your upper arm at the level of your heart. Blood pressure should be measured at least twice using the same arm. Certain conditions can cause a difference in blood pressure between your right and left arms. If you have a high blood pressure reading during one visit or you have normal blood pressure with other risk factors, you may be asked to: ? Return on a different day to have your blood pressure checked again. ? Monitor your blood pressure at home for 1 week or longer. If you are diagnosed with hypertension, you may have other blood or imaging tests to help your health care provider understand your overall risk for other conditions. How is this treated? This condition is treated by making healthy lifestyle changes, such as eating healthy foods, exercising more, and reducing your alcohol intake. You may be referred for counseling on a healthy diet and physical activity. Your health care provider may prescribe medicine if lifestyle changes are not enough to get your blood pressure under control and if: ? Your systolic blood pressure is above 130. ? Your diastolic blood pressure is above 80. Your personal target blood pressure may vary depending on your medical conditions, your age, and other factors. Follow these instructions at home: Eating and drinking ? Eat a diet that is high in fiber and potassium, and low in sodium, added sugar, and fat. An example of this eating plan is called the DASH diet. DASH stands for Dietary Approaches to Stop Hypertension. To eat this way: ? Eat plenty of fresh fruits and vegetables. Try to fill one half of your plate at each meal with fruits and vegetables. ? Eat whole grains, such as whole-wheat pasta, brown rice, or whole-grain bread. Fill about one fourth of your plate with whole grains. ? Eat or drink low-fat dairy products, such as skim milk or low-fat yogurt. ? Avoid fatty cuts of meat, processed or cured meats, and poultry with skin. Fill about one fourth of your plate with lean proteins, such as fish, chicken wit (more content not included)... Normal [facility] Urgent Care Note- Provideron 12-15-2023 Urgent Care Note- Provider Patient: PRINCESS GUERRERO Age: 28 years Sex: FEMALE : 1995 Associated Diagnoses: Physical exam; Elevated blood pressure reading Author: TARAS FAUSTIN Subjective Physical exam. Patient mitts to previous history of 2 isolated seizures 2 years ago, has not had any issues since, currently managed on lamotrigine, sees neurology once a year. They stated they were uncertain of the etiology of seizures. She also states she has a history of hypertension previously on lisinopril when she was this was switched to labetalol and is not as well-controlled anymore. States that she does have an appoint with her PCP to change back to lisinopril. Denies any chest pains, shortness of breath, headaches, dizziness or any other problems. Health Status Allergies: No active allergies have been recorded. Objective CONST: -Well-developed well-nourished. -Acute distress: No -Vitals: reviewed. SKIN: -Gross abnormalities: No EYES: -EOM intact, JOVANY: -Sclera conjunctiva: Unremarkable. ENT: - pharynx pink and moist. NECK: -Supple ([id number]): non-tender. CARD: -Rate and rhythm: Regular RESP: -Respiratory effort and chest excursion with respirations: Normal -Breath sounds equal bilaterally: Clear -Wheezes: No -Rales: No BACK: -Signs of pain with movement: No ABD: -Distended: No -Deep palpation: Non-tender EXT: Gross appearance and use of all four extremities: Unremarkable NEURO: -Patient: alert -Oriented to: person, place and time. -Appearance and judgment: appropriate. Impression and Plan Assessment and Plan: Diagnosis: Physical exam (USP19-DG Z00.00), Elevated blood pressure reading (MBE62-BE R03.0). Cleared for employment [Electronically Signed on: 12/15/2023 11:52 EDT] TARAS FAUSTIN [Verified on: 12/15/2023 11:52 EDT] TARAS FAUSTIN Normal [facility] [place] 024 Urgent Care Record [facility] ? Urgent Care [address] [place] [address] PATIENT DISCHARGE INSTRUCTIONS Patient Information Name: PRINCESS GUERRERO Age: 28 Years Date of : 1995 Reason For Visit: OTTERBEIN PHYSICAL Arrival Time: 12/15/2023 11:27:18 Primary Care Physician: Provider, None Attending Physician: TARAS FAUSTIN Comment: Visit Diagnosis: Diagnoses This Visit Elevated blood pressure reading (R03.0) Physical exam (Z00.00) If you received any narcotics, sedation, or any other medication that causes drowsiness for the next 24 hours, unless otherwise directed: ? Do not drive a car. ? Do not operate machinery such as power tools, lawn mowers, drills, sewing machines, or stoves ? Avoid alcoholic beverages and drugs for allergies, nerves, or sleep ? Do not make important personal or business decisions or sign any legal documents With: Address: When: Your primary provider in your hometown Within 2 to 4 days Comments: Follow-up for reevaluation of your blood pressure. With: Address: When: None Provider [address] [place] [address] Medication Information: The exam and treatment you received today in the [facility] were for an urgent problem and are not intended as complete care. It is important for you to follow up with a doctor, nurse practitioner, or physician?s assistant manager pt for ongoing care. If your symptoms become worse or you do not improve as expected and you are unable to reach your usual health care provider, you should return to the Emergency Department, we are available 24 hours a day. For those patients who have received Radiology results, the interpretation of your X-ray as given to you by our Urgent Care physician is only a preliminary report. The Radiologist will review your films and if there is a change in the diagnosis you will be notified by phone. Please make sure you have provided a working phone number so we can reach you if necessary. In the event that you had a lab culture while you were a patient in the Urgent Care, you will be notified by phone if there is a need to change your antibiotic. Please make sure you have provided a working phone number so we can reach you if necessary. [facility] has provided you with a complete list of medications post discharge. Please inform your rn endocrinology/provider of your visit and for further instruction on these medications. Any specific questions regarding your chronic medications and dosages should be discussed with your primary care physician(s) and/or pharmacist. Additional medications on your home medication list not specifically addressed. Please contact the ordering physician if you have questions about these medications. labetalol (labetalol 200 mg oral tablet) 1 tab(s) Oral (given by mouth) 2 times per day. 2 x daily. lamoTRIgine (lamoTRIgine 200 mg oral tablet) Oral (given by mouth) every day. 2 x daily. Visit Information Allergies: Substance Reaction Symptoms Type Comments No known allergies Drug Vital Signs: Vitals and Measurements this Visit (last charted value for your 12/15/2023 visit) Vital Signs This Visit Temperature Oral: 36.4 DegC Apical Heart Rate: 61 bpm Respiratory Rate: 18 br/min Systolic Blood Pressure: 146 mmHg Diastolic Blood Pressure: 93 mmHg SpO2: 99 % Oxygen Therapy: Simple mask Blood Pressure Method: Automatic Measurements This Visit Height/Length Measured: 175.26 cm Weight Measured: 85.73 kg Weight Dosin.730 kg Body Mass Index: 27.91 kg/m2 BSA Measured: 2.04 m2 Problems List: Problem Onset Comments HTN (hypertension) Seizure Patient Education Hypertension, Adult High blood pressure (hypertension) is when the force of blood pumping through the arteries is too strong. The arteries are the blood vessels that carry blood from the heart throughout the body. Hypertension forces the heart to work harder to pump blood and may cause arteries to become narrow or stiff. Untreated or uncontrolled hypertension can lead to a heart attack, heart failure, a stroke, kidney disease, and other problems. A blood pressure reading consists of a higher number over a lower number. Ideally, your blood pressure should be below 120/80. The first ( top ) number is called the systolic pressure. It is a measure of the pressure in your arteries as your heart beats. The second ( bottom ) number is called the diastolic pressure. It is a measure of the pressure in your arteries as the heart relaxes. What are the causes? The exact cause of this condition is not known. There are some conditions that result in high blood pressure. What increases the risk? Certain factors may make you more likely to develop high blood pressure. Some of these risk factors are under your control, including: ? Smoking. ? Not getting enough exercise or physical activity. ? Being overweight. ? Having too much fat, sugar, (more content not included)... [facility] 08-04-2023 L Specimen: [id number] Received: 08/04/23 Status: LAZARA Lyn Num: [id number] Spec Type: Surgical Subm Dr: Willis Chen Tissues: A Placenta - 3rd Trimester (Greater than 28 weeks) (PLACENTA) Procedures: HE/3, Gross/Micro L5 Age/ Patient Sex Location Account Attending Physician Princess Cantu 27/F [facility] [id number] Willis Chen SPEC NUM: [id number] RECD: 08/04/23 STATUS: LAZARA LYN NUM: [id number] JOSE: 08/04/[address]: Willis Chen ENTERED: 08/04/[address] [facility] [address]: Giselle,Lab SPEC TYPE: Surgical DEPT: ROSS [...] parenchyma up to 3.1 cm in thickness. Resource Program Teacher sections are submitted in 3 cassettes as follows: A1 - membranes, umbilical cord, and decidua basalis A2 - Central placenta full-thickness A3 - Peripheral placenta, full-thickness ---- Specimen: [id number] Received: 08/04/23 Status: LAZARA Lyn Num: [id number] Spec Type: Surgical Subm Dr: Willis Chen Tissues: A Placenta - 3rd Trimester (Greater than 28 weeks) (PLACENTA) Procedures: HE/3, Gross/Micro L5 ---- Patient: Princess Cantu [id number] (Continued) ---- Specimen: [id number] Received: 08/04/23 (Continued) Signed (signature on file) Juliet Sykes MD 08/08/23 2230 ---- Specimen: [id number] Received: 08/04/23 Status: LAZARA Santiagoreagan Num: [id number] Spec Type: Surgical Subm Dr: Willis Chen Tissues: A Placenta - 3rd Trimester (Greater than 28 weeks) (PLACENTA) Procedures: HE/3, Gross/Micro L5 ---- Patient: Princess Cantu [id number] (Continued) ---- Specimen: [id number] Received: 08/04/23 (Continued) CPT Codes 22004 ---- ---- Specimen: [id number] Received: 08/04/23-1501 Status: LAZARA Lyn Num: [id number] Spec Type: Surgical Subm Dr: Willis Chen Tissues: A Placenta - 3rd Trimester (Greater than 28 weeks) (PLACENTA) Procedures: /3, Gross/Micro L5 ---- Patient: Princess Cantu [id number] (Continued) ---- Signed (signature on file) Juliet Sykes MD 08/08/23 2230 [facility] DHEA SERUMon 11-20-2022 Dehydroepiandrosterone (DHEA) 656 ng/dL Normal 31-701 [facility] Comment on above: Performed By: #### D LUCERO. #### [facility] [address] [place] [address] Dr. Vish Brown ANTI-MULLERIAN HORMONEon Anti-Mullerian Hormone (AMH) 4.47 ng/mL Normal [facility] Comment on above: Result Comment: For assays employing antibodies, the possibility exists for interference by heterophile antibodies in the samples.1 1.Favio Campos Interferences in Immunoassays - still a threat. Clin. Chem. 2000; 46: 1506-0539. This test was developed and its performance characteristics determined by [employer]. It has not been cleared or approved by the Food and Drug Administration. Reference Range: Females 26 - 30y: 1.03 - 11.10 Median 4.20 AMH concentrations of >= 1.06 ng/mL is correlated with a better response to ovarian stimulation, produced more retrievable oocytes and higher odds of live according to Ryaner et al. Fertility and Sterility. 2010: 94:7247-5447. The current AMH test method correlates with [...] tumor. Performed By: #### L SUHAS #### [facility] [address] [place] [address] Dr. Vish Brown DHEA-SULFATEon 11-17-2022 DHEA-Sulfate 449.0 ug/dL Critically high 84.8-378.0 [facility] Comment on above: Performed By: #### L BCL #### [facility] [address] [place] [address] Dr. Vish Brown ESTRADIOLon 11-17-2022 Estradiol 34.3 pg/mL Normal [facility] Comment on above: Result Comment: Adul t Female: Follicular phase 12.5 - 166.0 Ovulation phase 85.8 - 498.0 Luteal phase 43.8 - 211.0 Postmenopausal <6.0 - 54.7 1st trimester 215.0 - >4300.0 Ele ECLIA methodology Performed By: #### E CHLOE #### [facility] [address] [place] [address] Dr. Vish Brown FSHon 11-17-2022 FSH 6.1 mIU/mL Normal [facility] Comment on above: Result Comment: Adul t Female: Follicular phase 3.5 - 12.5 Ovulation phase 4.7 - 21.5 Luteal phase 1.7 - 7.7 Postmenopausal 25.8 - 134.8 Performed By: #### L [facility] #### [facility] [address] [place] [address] Dr. Vish Brown LUTEINIZING HORMONE (LH)on 0 11-17-2022 LH 4.5 mIU/mL Normal [facility] Comment on above: Result Comment: Adul t Female: Follicular phase 2.4 - 12.6 Ovulation phase 14.0 - 95.6 Luteal phase 1.0 - 11.4 Postmenopausal 7.7 - 58.5 Performed By: #### L SUHAS #### [facility] [address] [place] [address] Dr. Vish Brown PROGESTERONEon 11-17-2022 Progesterone 0.8 ng/mL Normal [facility] Comment on above: Result Comment: Foll icular phase 0.1 - 0.9 Luteal phase 1.8 - 23.9 Ovulation phase 0.1 - 12.0 First trimester 11.0 - 44.3 Second trimester 25.4 - 83.3 Third trimester 58.7 - 214.0 Postmenopausal 0.0 - 0.1 Performed By: #### P TASNEEM #### [facility] [address] [place] [address] Dr. Vish Brown CBC AUTO DIFFon 11-16-2022 BASO # 0.0 103/ul Normal 0.0-0.1 [facility] Comment on above: Performed By: #### L BCL #### [facility] [address] [place] [address] Dr. Vish Brown Basophils/100 WBC (Bld) 0.5 % Normal 0.2-2.0 [facility] Comment on above: Performed By: #### L BCLH #### [facility] [address] [place] [address] Dr. Vish Brown EO # 0.3 103/ul Normal 0.0-0.7 [facility] Comment on above: Performed By: #### L BCL #### [facility] [address] [place] [address] Dr. Vish Brown Eosinophils/100 WBC (Bld) 4.0 % Normal 0.9-7.0 [facility] Comment on above: Performed By: #### L BCLH #### [facility] [address] [place] [address] Dr. Vish Brown Erythrocyte distribution width (RBC) [Ratio] 12.0 % Normal 11.0-15.0 [facility] Comment on above: Performed By: #### L BCLH #### [facility] [address] [place] [address] Dr. Vish Brown Hematocrit (Bld) [Volume fraction] 39.1 % Normal 36.0-48.0 [facility] Comment on above: Performed By: #### L BCL #### [facility] [address] [place] [address] Dr. Vish Brown Hemoglobin (Bld) [Mass/Vol] 13.0 g/dL Normal 12.0-16.0 [facility] Comment on above: Performed By: #### L BCL #### [facility] [address] [place] [address] Dr. Vish Brown IG # 0.02 10e3/ul Normal 0.00-0.03 [facility] Comment on above: Performed By: #### L BCL #### [facility] [address] [place] [address] Dr. Vish Brown IG % 0.3 % Normal 0.0-0.5 [facility] Comment on above: Performed By: #### L BCLH #### [facility] [address] [place] [address] Dr. Vish Brown LYMPH # 2.5 103/ul Normal 1.2-3.8 [facility] Comment on above: Performed By: #### L BCLH #### [facility] [address] [place] [address] Dr. Vish Brown Lymphocytes/100 WBC (Bld) 32.4 % Normal 20.5-60.0 [facility] Comment on above: Performed By: #### L BCLH #### [facility] [address] [address] [address] Vish Brown MANUAL DIFF REQ NO Normal [facility] Comment on above: Performed By: #### L BCLH #### [facility] [address] [address] [address] Vish Brown MCH (RBC) [Entitic mass] 29.9 pg Normal 26.7-34.0 [facility] Comment on above: Performed By: #### L BCLH #### [facility] [address] [place] [address] Dr. Vish Brown MCHC (RBC) [Mass/Vol] 33.2 g/dL Normal 29.9-35.2 [facility] Comment on above: Performed By: #### L BCLH #### [facility] [address] [place] [address] Dr. Vish Brown MCV (RBC) [Entitic vol] 89.9 fL Normal 81.0-99.0 [facility] Comment on above: Performed By: #### L BCLH #### [facility] [address] [place] [address] Dr. Vish Brown MONO # 0.6 103/ul Normal 0.3-0.8 [facility] Comment on above: Performed By: #### L BCLH #### [facility] [address] [place] [address] Dr. Vish Brown Monocytes/100 WBC (Bld) 7.4 % Normal 1.7-12.0 [facility] Comment on above: Performed By: #### L BCLH #### [facility] [address] [place] [address] Dr. Vish Brown NEUT # 4.3 103/ul Normal 1.4-6.5 [facility] Comment on above: Performed By: #### L BCLH #### [facility] [address] [place] [address] Dr. Vish Brown Neutrophils/100 WBC (Bld) 55.4 % Normal 43.0-75.0 [facility] Comment on above: Performed By: #### L BCLH #### [facility] [address] [address] [address] Vish Brown Platelet mean volume (Bld) [Entitic vol] 9.0 fL Critically low 9.5-13.5 [facility] Comment on above: Performed By: #### L BCLH #### [facility] [address] [place] [address] Dr. Vish Brown PLT 277 103/ul Normal 150-450 [facility] Comment on above: Performed By: #### L BCLH #### [facility] [address] [place] [address] Dr. Vish Brown RBC 4.35 106/ul Normal 4.20-5.40 [facility] Comment on above: Performed By: #### L BCLH #### [facility] [address] [place] [address] Dr. Vish Brown WBC 7.7 103/ul Normal 4.0-11.0 [facility] Comment on above: Performed By: #### L BCLH #### [facility] [address] [place] [address] Dr. Vish Brown FREE T4on 11-16-2022 Free T4 [Mass/Vol] 1.08 ng/dL Normal 0.76-1.46 [facility] Comment on above: Performed By: #### F T4 #### [facility] [address] [place] [address] Dr. Vish Brown GLYCOHEMOGLOBIN A1Con 2022 ADA RECOMMENDATION SEE BELOW Normal [facility] Comment on above: Result Comment: ADA RECOMMENDED LIMIT 4.0 - 6.0 ADA THERAPEUTIC TARGET < 7.0 ACTION SUGGESTED > 7.0 Performed By: #### A 1C #### [facility] [address] [place] [address] Dr. Vish Brown Glucose [Mass/Vol] 94 mg/dL Normal [facility] Comment on above: Performed By: #### A 1C #### [facility] [address] [place] [address] Dr. Vish Brown HbA1c (Bld) [Mass fraction] 4.9 % Normal 4.5-6.2 [facility] Comment on above: Performed By: #### A 1C #### [facility] [address] [place] [address] Dr. Vish Brown PREG QUANT HCGon 11-16-2022 HCG QUANT <1 Normal [facility] Comment on above: Performed By: #### P REGQNT, TSH #### [facility] [address] [place] [address] Dr. Vish Brown HCG RANGE SEE BELOW Normal [facility] Comment on above: Result Comment: 5-50 0.2-1 WEEK 50-500 1-2 WEEKS 100-5,000 2-3 WEEKS 500-10,000 3-4 WEEKS 1,000-50,000 4-5 WEEKS 10,000-100,000 5-6 WEEKS 15,000-200,000 6-8 WEEKS 10,000-100,000 2-3 MONTHS Performed By: #### P REGQNT, TSH #### [facility] [address] [place] [address] Dr. Vish Brown TSHon 11-16-2022 TSH 2.030 uIU/mL Normal 0.358-3.740 [facility] Comment on above: Performed By: #### P REGQNT, TSH #### [facility] [address] [place] [address] Dr. Vish Brown HM 19-49 Yearson 07-31-2022 [...] Ordered By:Koffi Uriarte; Lipid Panel; Status:Active; Requested for:[id number]; Perform:Lab Services - Lab To Draw (Blood [...] Occasional alcohol (more content not included)... Normal [facility] Tobacco Screening.on 023 Adult depression screening assessment No MP-WSPC-Ramesh n Ruby Work Phone: Fall risk assessment a) No falls within the last year [facility] Work Phone: Tobacco use status CP b) No QV-HBHP-[place] Work Phone: B-HCG SerPl-aCncon 2 HCG.beta subunit Qn m[IU]/mL Normal <5.0 [facility] Comment on above: Order Comment: Speci men Type: BLOOD SPECIMENOrdering Facility: [facility] Address: [address] [place] [address] Result Comment: Negalison kyle Performed By: #### G CCT #### [place] [address] BACTERIAL VAGINOSIS AMPLIFIC ATIONon 04-16-2022 Lactobacillus crispatus+gasseri+freddy enii + Gardnerella vaginalis + Atopobium vaginae rRNA HUMERA+probe Ql (Vag fld) Negative Normal Negative for bacterial vaginosis [facility] Comment on above: Order Comment: Speci men Type: SWAB [facility] Facility[facility] Address: [address] [place] [address] Performed By: #### C VTV, BVAMP #### [facility] CLIA [id number] [address] [place] [address] [place] C. trachomatis+N. gonorrhoea e DNA HUMERA+probe Ql (Unsp spec)on 04-16-2022 C. trachomatis DNA HUMERA+probe Ql (Unsp spec) Negative Normal Negative for Chlamydia trachomatis by amplificaton [facility] Comment on above: Order Comment: Speci men Type: SWAB [facility] Address: [address] [place] [address] Performed By: #### C VTV, BVAMP #### [facility] CLIA [id number] [address] [place] [address] [place] N. gonorrhoeae DNA HUMERA+probe Ql (Unsp spec) Negative Normal Negative for Neisseria gonorrhoeae by amplification [facility] Comment on above: Order Comment: Speci men Type: SWAB [facility] Address: [address] [place] [address] Performed By: #### C VTV, BVAMP #### [facility] CLIA [id number] [address] [place] [address] [place] MITCH / TRICHOMONAS AMPLIF ICATIONon 04-16-2022 MITCH / TRICHOMONAS AMPLIFICATION MITCH [employer]ES GROUP RNA: Negative for Mitch species MITCH GLABRATA RNA: Negative for Mitch glabrata TRICH VAG AMPLIFICATION RNA: Negative for Trichomonas vaginalis by amplification Normal [facility] Comment on above: Performed By: #### C VTV, BVAMP #### [facility] CLIA [id number] [address] [place] [address] [place] CNCOon 04-16-2022 CNCO Letter Text Letter Text Normal [facility] CNOVon 04-16-2022 CNOV [facility] PRINCESS CANTU ([id number]) 1995 F Date Time Provider Department 04/16/22 8:00 AM BRENDAN BLANKENSHIP [facility] During your visit today, [...] History Social History Narrative 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 I, Brendan Blankenship, have reviewed this information as documented for accuracy and performed all elements of history taking, and edited the record as necessary. ROS: SEE HPI PE: GENERAL: well-appearing, in no acute distress LUNGS: Normal inspiratory effort ENGINEERING DRAWINGS CHECKER: Normal external genitalia, no vaginal bleeding, small [...] Order(s):MITCH / TRICHOMONAS AMPLIFICATION [SQCVTV] Order #: [id number]. #:[id number] BACTERIAL VAGINOSIS AMPLIFICATION [SQBVAMP] Order #: [id number]. #:[id number] GC/CHLAMYDIA DNA DET [SQGCCAMP] Order #: [id number]. #:[id number] SYPHILIS TOTAL W/REFLEX [SQSYPHTX] Order #: [id number] FUTURE HIV 1 2 COMBO(AG/AB),WITH REFLEX TO DIFFERENTIATION [SQHIV12] Order #: [id number] FUTURE HEP C AB IA W/CONF SCRN [ZSYCAC2Y] Order #: [id number] FUTURE HEP B SURF AG SCRN [SQHBSAG] Order #: [id number] FUTURE Prescriptions as of 04/16/2022 - lamoTRIgine [...] Status:Closed by BRENDAN BLANKENSHIP on 04/16/22 Normal [facility] HBV surface Ab IA Ql (S)on 0 04-16-2022 HBV surface Ag Ql (S) Negative Normal Negative [facility] Comment on above: Order Comment: Speci men Type: BLOOD SPECIMENOrdering Facility: [facility] Address: [address] [place] [address] Performed By: #### G CCT #### [place] [phone] HCV Ab Ser Qlon 04-16-2022 HCV Ab Ql (S) Negative Normal Negative [facility] Comment on above: Order Comment: Speci men Type: BLOOD SPECIMEN [facility] Address: [address] [place] [address] Result Comment: The result suggests no evidence of active infection with Hepatitis C virus. Should recent infection be suspected, repeat testing may be considered 4-6 weeks after this draw. Performed By: #### 1 [id number] #### [facility] CLIA [id number] [address] [place] [address] [place] [facility] HIV 1+2 Ab IA Qlon 2 HIV 1 and 2 Ab IA.rapid Nom Normal [facility] Comment on above: Order Comment: Speci men Type: BLOOD SPECIMENOrdering Facility: [facility] Address: [address] [place] [address] Result Comment: Test not indicated. Performed By: #### G CCT #### [place] [phone] HIV 1+2 Ab+HIV1 p24 Ag IA Ql Non-Reactive Normal Nonreactive [facility] Comment on above: Order Comment: Speci men Type: BLOOD SPECIMENOrdering Facility: [facility] Address: [address] [place], [place] [address] Performed By: #### G CCT #### [place] [address] HIVINT Normal [facility] Comment on above: Order Comment: Speci men Type: BLOOD SPECIMENOrdering Facility: [facility] Address: [address] [place] [address] Result Comment: No e vidence of HIV-1 or HIV-2 infection. Should recent infection be suspected, repeat testing may be considered 2-3 weeks after this draw. Robertson Rev. Code 3701.243(E): This information has been [...] diagnoses. Performed By: #### G CCT #### [facility] [address] [place] [address] Reagin and Treponema pallidu m IgG and IgM [Interp]on 04-16-2022 SYPHILIS INTERPRETATION Cannot exclude recent Treponemal infection if specimen collected within 7-10 days after appearance of suspect lesions or 2-3 weeks after an exposure. Clinical correlation is required. Normal [facility] Comment on above: Order Comment: Speci deanna Type: BLOOD SPECIMENOrdering Facility: [facility] Address: [address] [place] [address] Performed By: #### G CCT #### [place] [address] T. pallidum IgG+IgM IA Ql (S) Non-Reactive Normal Nonreactive [facility] Comment on above: Order Comment: Speci men Type: BLOOD SPECIMENOrdering Facility: [facility] Address: [address] [place] [address] Performed By: #### G CCT #### [place] [address] CHEMISTRYOrdered By: SYSTEM SYSTEM on 03-24-2022 HCG.beta subunit Qn 1 m[IU]/mL Normal 1 - 3 mIU/mL FTM C Remisol CNPNon 03-24-2022 CNPN Telephone (OBGAMH) PRINCESS CANTU ([id number]) 1995 F Date Time Provider Department 03/24/22 KAVITA SWEET [facility] During your visit today, [...] Fully Assessed Reason for Visit: Bleeding With [23568] Primary Visit Diagnosis:Bleeding in early [O20.9] Order(s):HCG QUANTITATIVE [SQHCGQT] Order #: [id number] FUTURE Prescriptions as of 03/24/2022 - metroNIDAZOLE [...] Encounter Status:Closed by BRENDAN SOUZA on 03/24/22 [facility] PRINCESS CANTU ([id number]) 1995 F Date Time Provider Department 03/19/22 [place] DWYER [facility] [place] During your visit today, we recorded the [...] by MARY ONOFRE on 03/19/22 Normal [facility] Office Visit (Neuro-General) on 12-24-2021 Follow-up [...] or bowel/bladder incontinence. She was taken to [facility] in [place]. She had lab work and a CT [...] DAILY. Vitals Vital Signs Recorded: 24Dec2021 11:32AM Mildbvpmznz91.1 F Heart Rate54 Lhngcoef781 Wbnhiayjp96 Height5 ft 9 in Hpvrgw413 lb 1.6 oz BMI Ebamvnvcco98.03 kg/m2 BSA Calculated2.11 Tobacco Useb) No Fall Screeninga) No falls within the last year O2 Ombtwihrha755, RA Physical Exam Constitutional: General appearance: no [...] Dec 24 2021 11:37AM EST (Author) Normal [facility] Tobacco Screening.on Fall risk assessment a) No falls within the last year [facility]-Neurology -GeofusionW DO Work Phone: Tobacco use status CP b) No [facility]-Neurology -GeofusionW DO Work Phone: Office Visit (Primary Care [...] Nov 17 2021 1:34PM EST (Author) Normal [facility] Tobacco Screening.on 022 Adult depression screening assessment No [employer]-Ramesh [employer] Work Phone: Fall risk assessment a) No falls within the last year [facility] Work Phone: Tobacco use status [facility] b) No CY-KWIJ[facility] [place] Work Phone: Bact Vag Amplificationon Bact Vag Amplification Positive Criticall y abnormal Negative for bacterial vaginosis [facility] Comment on above: Performed By: #### G CCT #### [facility] [address] [place], [place] [address] CNOVon 09-09-2021 CNOV Office Visit ([facility] ) PRINCESS [id number]) 1995 F Date Time Provider Department 09/09/21 10:00 AM BRENDAN BLANKENSHIP During your visit today, we recorded the following information about you: Pulse Blood pressure Weight Height 73/minute 141/80 96.3 kg 1.727 m Last Period 08/13/21 Brendan Blankenship PA-C 09/09/2021 10:17 AM Signed Princess Cantu is a 25 year old [...] History Social History Narrative Single 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 Portions of this record were documented by the Traveling Operator. I, Brendan Blankenship, have reviewed this information as documented for accuracy and performed all elements of history taking, and edited the record as necessary. ROS: SEE HPI PE: GENERAL: well-appearing, in no acute distress LUNGS: Normal inspiratory effort ENGINEERING DRAWINGS CHECKER: Small amount yellow mucus discharge, cervix NL. [...] Order(s):MITCH / TRICHOMONAS AMPLIFICATION [SQCVTV] Order #: [id number] BACTERIAL VAGINOSIS AMPLIFICATION [SQBVAMP] Order #: [id number] GC/CHLAMYDIA DNA DET [SQGCCAMP] Order #: [id number] metroNIDAZOLE (FLAGYL) 500 mg tabletTake 1 tablet [...] Status:Closed (more content not included)... Normal [facility] Mitch Trich Amplon 022 Mitch glabrata RNA Negative Normal Negative [facility] Comment on above: Performed By: #### G CCT #### [place] [address] [address] [place] [address] Mitch sp group RNA Negative Normal Negative [facility] Comment on above: Performed By: #### G CCT #### [place] [address] Trichomonas RNA Negative Normal [facility] Comment on above: Performed By: #### G CCT #### [address] [place] [address] GC/Chlamydia Amplifon 2021 Chlamydia Amplif Negative Normal [facility] Comment on above: Performed By: #### G CCT #### [address] [place] [address] GC Amplification Negative Normal [facility] Comment on above: Performed By: #### G CCT #### [facility] [address] [address] GC/Chlam Amp Source Cervix Normal [facility] Comment on above: Performed By: #### G CCT #### [address] [address] [place] [address] Bact Vag Amplificationon Bact Vag Amplification Negative Normal Negat ko for bacterial vaginosis [facility] Comment on above: Performed By: #### C VTV, BVAMP #### [facility] CLIA [id number] [address] [place] [address] [place] CNOVon 07-04-2021 CNOV Office Visit (OBGYCC ) PRINCESS CANTU ([id number]) 1995 F [facility] Date Time Provider Department 07/04/21 4:00 PM [place] DWYER [facility] During your visit today, we recorded the following information about you: Pulse Blood pressure Weight Height 74/minute 131/86 95.7 kg 1.727 m Last Period 06/07/21 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 APRN.[employer] 07/04/2021 4:39 PM Signed Princess is a [...] Ectopic0 Multiple0 Live Births0 Comment: Menarche 10 Tool Lapper Hand History LMP: 06/07/2021 (Exact Date), Having periods Age at Menarche: Age at First : Age at Menopause: Tool Lapper Hand History Comments: Sexual Activity: Yes; Male; same [...] external genitalia normal, normal Bartholin's glands, urethra, Donahue's glands, no vulvar lesions, no cervical lesions, [...] type of detergents for washing undergarments, wiping edylx-kl-tvpw, sleep in loose shorts without underwear, shower [...] health screening schedule is recommended by the [employer] ([employer]OG). Some of these tests may be ordered or performed by your primary care doctor. Pap test screening The pap test loo (more content not included)... Normal [facility] Mitch Trich Amplon 021 Mitch glabrata RNA Negative Normal Negative [facility] Comment on above: Performed By: #### C VTV, BVAMP #### [facility] CLIA [id number] [address] [place] [address] [place] Mitch sp group RNA Negative Normal Negative [facility] Comment on above: Performed By: #### C VTV, BVAMP #### [facility] CLIA [id number] [facility] [place] [address] [place] Trichomonas RNA Negative Normal [facility] Comment on above: Performed By: #### C VTV, BVAMP #### [facility] CLIA [id number] [address] [id number] [place] GC/Chlamydia Amplifon 2020 Chlamydia Amplif Negative Normal [facility] Comment on above: Performed By: #### G CCT #### [facility] [address] [place], [place] [address] GC Amplification Negative Normal [facility] Comment on above: Performed By: #### G CCT #### [facility] [address] [place], [place] [address] GC/Chlam Amp Source Cervix Normal [facility] Comment on above: Performed By: #### G CCT #### [facility] [address] [place], [place] [address] Tobacco Screening.on 021 Fall risk assessment a) No falls within the last year [facility] -[place] SJW DO Work Phone: Tobacco use status [facility] b) No [facility] -[place] SJW DO Work Phone: GC + Chlamydia By Amplified Detectionon 05-20-2021 C. trachomatis rRNA HUMERA+probe Ql (Unsp spec) Negative Negative [facility] Work Phone: Comment on above: The APTIMA Combo 2 a ssay is FDA-approved for Chlamydia trachomatis and Neisseria gonorrhoeae testing on female endocervical and vaginal swabs, ThinPrep liquid pap samples, male urine samples and urethral swabs. Performance characteristics for Chlamydia trachomatis and Neisseria gonorrhoeae testing on specific mfe-TTQ-bbatqzir sample types (female urine samples) have been validated by [facility]. This laboratory is certified by CLIA to perform high complexity testing. Samples from all other sites are not validated for this method. N. gonorrhoeae rRNA HUMERA+probe Ql (Unsp spec) Negative Negative [facility] [place] Work Phone: Comment on above: SOURCE: Urine The AP KELSIE Combo 2 assay is FDA-approved for Chlamydia trachomatis and Neisseria gonorrhoeae testing on female endocervical and vaginal swabs, ThinPrep liquid pap samples, male urine samples and urethral swabs. Performance characteristics for Chlamydia trachomatis and Neisseria gonorrhoeae testing on specific cah-HNZ-ohbxpjgz sample types (female urine samples) have been validated by [facility]. This laboratory is certified by CLIA to perform high complexity testing. Samples from all other sites are not validated for this method. TSHon 12-24-2020 TSH Qn 2.30 m[IU]/L Normal 0.44 - 3.98 [facility] Comment on above: Result Comment: TSH testing is performed using different testing methodology at [facility] than at other [facility]. Direct result comparisons should only be made within the same method. Performed By: #### T SH2 #### [address] [address] TSH - Thyroid Stimulating Ho rmone, Serumon 12-24-2020 TSH Qn 2.30 m[IU]/L See Below [employer] Work Phone: Comment on above: Reference Range: 0.4 4 - 3.98 TSH testing is performed using different testing methodology at [facility] than at other [facility]. Direct result comparisons should only be made within the same method. Tobacco Screening.on 021 Fall risk assessment a) No falls within the last year [employer] Work Phone: Tobacco use status CPHS b) No [facility] Work Phone: CBCon 08-14-2020 Erythrocyte distribution width (RBC) [Ratio] 13.2 % Normal 11.5 - 14.5 [facility] Comment on above: Performed By: #### C BC #### [address] [address] Hematocrit (Bld) [Volume fraction] 39.5 % Normal 36.0 - 46.0 [facility] Comment on above: Performed By: #### C BC #### [address] [address] Hemoglobin (Bld) [Mass/Vol] 13.0 g/dL Normal 12.0 - 16.0 [facility] Comment on above: Performed By: #### C BC #### [address] [address] MCHC (RBC) [Mass/Vol] 32.9 g/dL Normal 32.0 - 36.0 [facility] Comment on above: Performed By: #### C BC #### [address] [address] MCV (RBC) [Entitic vol] 91 fL Normal 80 - 100 [facility] Comment on above: Performed By: #### C BC #### [address] [address] NUCLEATED RBC 0.0 /100 WBC Normal 0.0 - 0.0 [facility] Comment on above: Performed By: #### C BC #### [address] [address] Platelets (Bld) [#/Vol] 235 10*3/uL Normal 150 - 450 [facility] Comment on above: Performed By: #### C BC #### [address] [address] RBC 4.33 x10E12/L Normal 4.00 - 5.20 [facility] Comment on above: Performed By: #### C BC #### [address] [address] WBC (Bld) [#/Vol] 5.8 10*3/uL Normal 4.4 - 11.3 [facility] Comment on above: Performed By: #### C BC #### [address] [address] COMPREHENSIVE PANELon 2020 Albumin [Mass/Vol] 4.7 g/dL Normal 3.4 - 5.0 [facility] Comment on above: Performed By: #### C MP #### [address] [address] ALP [Catalytic activity/Vol] 53 U/L Normal 33 - 110 [facility] Comment on above: Performed By: #### C MP #### [address] [address] ALT [Catalytic activity/Vol] 41 U/L Normal 7 - 45 [facility] Comment on above: Result Comment: Desiree ents treated with Sulfasalazine may generate falsely decreased results for ALT. Performed By: #### C MP #### [address] [place] [address] Anion gap [Moles/Vol] 10 mmol/L Normal 10 - 20 [facility] Comment on above: Performed By: #### C MP #### [address] [place] [address] AST [Catalytic activity/Vol] 27 U/L Normal 9 - 39 [facility] Comment on above: Performed By: #### C MP #### [address] [address] Bilirubin [Mass/Vol] 0.6 mg/dL Normal 0.0 - 1.2 [facility] Comment on above: Performed By: #### C MP #### [address] [address] Calcium [Mass/Vol] 9.5 mg/dL Normal 8.6 - 10.3 [facility] Comment on above: Performed By: #### C MP #### [address] [address] Chloride [Moles/Vol] 105 mmol/L Normal 98 - 107 [facility] Comment on above: Performed By: #### C MP #### [address] [address] Creatinine [Mass/Vol] 0.93 mg/dL Normal 0.50 - 1.05 [facility] Comment on above: Performed By: #### C MP #### [address] [address] GFR- AM. >60 Normal >60 [facility] Comment on above: Result Comment: CALC ULATIONS OF ESTIMATED GFR ARE PERFORMED USING THE MDRD STUDY EQUATION FOR THE IDMS-TRACEABLE CREATININE METHODS. CLIN CHEM 2007;53:766-72 Performed By: #### C MP #### [address] [address] GFR-NON AM. >60 Normal >60 [facility] Comment on above: Performed By: #### C MP #### [address] [address] Glucose [Mass/Vol] 94 mg/dL Normal 74 - 99 [facility] Comment on above: Performed By: #### C MP #### [address] [address] HCO3 (Bld) [Moles/Vol] 28 mmol/L Normal 21 - 32 [facility] Comment on above: Performed By: #### C MP #### [address] [address] Potassium [Moles/Vol] 4.4 mmol/L Normal 3.5 - 5.3 [facility] Comment on above: Performed By: #### C MP #### [address] [address] Protein [Mass/Vol] 7.3 g/dL Normal 6.4 - 8.2 [facility] Comment on above: Performed By: #### C MP #### [address] [address] Sodium [Moles/Vol] 139 mmol/L Normal 136 - 145 [facility] Comment on above: Performed By: #### C MP #### [address] [address] Urea nitrogen [Mass/Vol] 13 mg/dL Normal 6 - 23 [facility] Comment on above: Performed By: #### C MP #### [address] [address] Hematologyon 08-14-2020 Hematocrit (Bld) [Volume fraction] 39.5 % See Below [facility] DO Work Phone: Comment on above: Reference Range: 36. 0 - 46.0 Hemoglobin (Bld) [Mass/Vol] 13.0 g/dL See Below [facility] DO Work Phone: Comment on above: Reference Range: 12. 0 - 16.0 MCV (RBC) [Entitic vol] 91 fL 80 - 100 [facility] DO Work Phone: Platelets (Bld) [#/Vol] 235 {x10E9/L} 150 - 450 -Neurology -[place] [facility] DO Work Phone: RBC (Bld) [#/Vol] 4.33 {x10E12/L} See Below -Neurology -[place] [facility] DO Work Phone: Comment on above: Reference Range: 4.0 0 - 5.20 WBC (Bld) [#/Vol] 5.8 {x10E9/L} 4.4 - 11.3 [facility] Work Phone: WBC (Bld) [#/Vol] 0.0 {/100_WBC} 0.0 - 0.0 - Neurology -[place] S[facility] DO Work Phone: LAMOTRIGINE- LAMICTALon 07-20 LAMOTRIGINE- LAMICTAL 6.4 ug/mL Normal 2.5 - 15.0 [facility] Comment on above: Performed By: #### L AMOT #### [facility] [address] [place] [address] Lamotrigine Level, Serumon 0 08-14-2020 Lamotrigine [Mass/Vol] 6.4 ug/mL 2.5 - 15.0 -Neurology -[facility] [place] DO Work Phone: Metabolic Panelon 08-14-2020 ALP [Catalytic activity/Vol] 53 U/L 33 - 110 -Neurology -[place] [facility] DO Work Phone: Anion gap [Moles/Vol] 10 mmol/L 10 - 20 - Neurology -[place] [facility] DO Work Phone: Bilirubin [Mass/Vol] 0.6 mg/dL 0.0 - 1.2 MP-N eurology -[place] [facility] DO Work Phone: Calcium [Mass/Vol] 9.5 mg/dL 8.6 - 10.3 MP-Jozef rology -[place] [facility] DO Work Phone: Chloride [Moles/Vol] 105 mmol/L 98 - 107 MP-N eurology -[place] [facility] DO Work Phone: CO2 [Moles/Vol] 28 mmol/L 21 - 32 MP-Neurol ogy -[place] [facility] DO Work Phone: Creatinine [Mass/Vol] 0.93 mg/dL See Below - Neurology -[place] W DO Work Phone: Comment on above: Reference Range: 0.5 0 - 1.05 Glucose [Mass/Vol] 94 mg/dL 74 - 99 MP-Jozef rology -[place] [facility] DO Work Phone: Potassium [Moles/Vol] 4.4 mmol/L 3.5 - 5.3 - Neurology -[place] [facility] DO Work Phone: Protein [Mass/Vol] 7.3 g/dL 6.4 - 8.2 MP-Jozef rology -[place] [facility] DO Work Phone: Sodium [Moles/Vol] 139 mmol/L 136 - 145 MP-Jozef roly -[place] [facility] DO Work Phone: Urea nitrogen [Mass/Vol] 13 mg/dL 6 - 23 MP-Neurology -[place] [facility] DO Work Phone: Otheron 08-14-2020 Albumin BCP dye [Mass/Vol] 4.7 g/dL 3.4 - 5.0 -Neurology -[place] [facility] DO Work Phone: ALT With P-5'-P [Catalytic activity/Vol] 41 U/L 7 - 45 -Neurology -[place] [facility] DO Work Phone: Comment on above: Patients treated wit h Sulfasalazine may generate falsely decreased results for ALT. AST With P-5'-P [Catalytic activity/Vol] 27 U/L 9 - 39 -Neurology -[place] [facility] DO Work Phone: Erythrocyte distribution width (RBC) [Ratio] 13.2 % See Below -Neurology -[place] MCKENNA DO Work Phone: Comment on above: Reference Range: 11. 5 - 14.5 MCHC (RBC) [Mass/Vol] 32.9 g/dL See Below - Neurology [place] MCKENNA DO Work Phone: Comment on above: Reference Range: 32. 0 - 36.0 >60 >60 -Neurology [place] MCKENNA DO Work Phone: Comment on above: CALCULATIONS OF MICHAEL MATED GFR ARE PERFORMED USING THE MDRD STUDY EQUATION FOR THE IDMS-TRACEABLE CREATININE METHODS. CLIN CHEM 2007;53:766-72 MRI BRAIN W WO CONTRASTon There are no acute intracranial changes, no evidence of ischemia or hemorrhage. There are no regions of signal abnormality. There are no areas of abnormal enhancement after contrast administration. [place] EXAMINATION: MRI BRA IN W WO [...] The calvarium and soft tissues are unremarkable. [place], [place], Chpo Incoming Radiant Results From [employer] - 05/09/2020 3:02 PM EDT EXAMINATION: MRI [...] areas of abnormal enhancement after contrast administration. [place] MRI BRAIN W WO CONTRAST EXAMINATION: [...] David Winter MD 05/09/[address] [facility] ([place], [place]) CBC With Platelet and Differ entialon 04-19-2020 Basophils (Bld) [#/Vol] 0.1 10*3/uL Normal 0.0-0.2 [facility] Comment on above: Performed By: #### C BCWD #### [facility] ([place], [place]) [address] [place] [address] Basophils/100 WBC (Bld) 0.4 % Normal [facility] Comment on above: Performed By: #### C BCWD #### [facility] ([place], [place]) [address] [place] [address] Eosinophils (Bld) [#/Vol] 0.5 10*3/uL Normal 0.0-0.7 [facility] Comment on above: Performed By: #### C BCWD #### [facility] ([place], [place]) [address] [place] [address] Eosinophils/100 WBC (Bld) 4.2 % Normal [facility] Comment on above: Performed By: #### C BCWD #### [facility] ([place], [place]) [address] [place] [address] Erythrocyte distribution width (RBC) [Ratio] 12.5 % Normal 11.5-14.5 [facility] Comment on above: Performed By: #### C BCWD #### [facility] ([place], [place]) [address] [place] [address] Hematocrit (Bld) [Volume fraction] 39.4 % Normal 37.0-47.0 [facility] Comment on above: Performed By: #### C BCWD #### [facility] ([place], [place]) [address] [place] [address] Hemoglobin (Bld) [Mass/Vol] 13.3 g/dL Normal 12.0-16.0 [facility] Comment on above: Performed By: #### C BCWD #### [facility] ([place], [place]) [address] [place] [address] Lymphocytes (Bld) [#/Vol] 3.2 10*3/uL Normal 1.0-4.8 [facility] Comment on above: Performed By: #### C BCWD #### [facility] ([place], [place]) [address] [place] [address] Lymphocytes/100 WBC (Bld) 26.9 % Normal [facility] Comment on above: Performed By: #### C BCWD #### [facility] ([place], [place]) [address] [place] [address] MCH (RBC) [Entitic mass] 29.8 pg Normal 27.0-31.3 [facility] Comment on above: Performed By: #### C BCWD #### [facility] ([place], [place]) [address] [place] [address] MCHC (RBC) [Mass/Vol] 33.8 % Normal 33.0-37.0 [facility] Comment on above: Performed By: #### C BCWD #### [facility] ([place], [place]) [address] [place] [address] MCV (RBC) [Entitic vol] 88.4 fL Normal 82.0-100.0 [facility] Comment on above: Performed By: #### C BCWD #### [facility] ([place], [place]) [address] [place] [address] Monocytes (Bld) [#/Vol] 0.8 10*3/uL Normal 0.2-0.8 [facility] Comment on above: Performed By: #### C BCWD #### [facility] ([place], [place]) [address] [place] [address] Monocytes/100 WBC (Bld) 6.8 % Normal [facility] Comment on above: Performed By: #### C BCWD #### [facility] ([place], [place]) [address] [place] [address] Neutrophils (Bld) [#/Vol] 7.3 10*3/uL Critically high 1.4-6.5 [facility] Comment on above: Performed By: #### C BCWD #### [facility] ([place], [place]) [address] [place] [address] Neutrophils/100 WBC (Bld) 61.7 % Normal [facility] Comment on above: Performed By: #### C BCWD #### [facility] ([place], [place]) [address] [place] [address] Platelets (Bld) [#/Vol] 314 10*3/uL Normal 130-400 [facility] Comment on above: Performed By: #### C BCWD #### [facility] ([place], [place]) [address] [place] [address] RBC (Bld) [#/Vol] 4.45 10*6/uL Normal 4.20-5.40 [facility] Comment on above: Performed By: #### C BCWD #### [facility] ([place], [place]) [address] [place] [address] WBC (Bld) [#/Vol] 11.9 10*3/uL Critically high 4.8-10.8 [facility] Comment on above: Performed By: #### C BCWD #### [facility] ([place], [place]) [address] [place] [address] CT HEAD WO CONTRASTon 2019 CT HEAD [...] De Jesus DO 04/19/20 Final result Normal [facility] Comprehensive Metabolic Pane crescencio 04-19-2020 Albumin [Mass/Vol] 4.9 g/dL Critically high 3.5-4.6 [facility] Comment on above: Performed By: #### C MP #### [facility] ([place], [place]) [address] [place] [address] ALP [Catalytic activity/Vol] 40 U/L Normal 40-130 [facility] Comment on above: Performed By: #### C MP #### [facility] ([place], [place]) [address] [place] [address] ALT [Catalytic activity/Vol] 17 U/L Normal 0-33 [facility] Comment on above: Performed By: #### C MP #### [facility] ([place], [place]) [address] [place] [address] Anion gap [Moles/Vol] 14 mmol/L Normal 9-15 [facility] Comment on above: Performed By: #### C MP #### [facility] ([place], [place]) [address] [place] [address] AST [Catalytic activity/Vol] 17 U/L Normal 0-35 [facility] Comment on above: Performed By: #### C MP #### [facility] ([place], [place]) [address] [place] [address] Bilirubin [Mass/Vol] mg/dL Normal 0.2-0.7 [facility] Comment on above: Performed By: #### C MP #### [facility] ([place], [place]) [address] [place] [address] Calcium [Mass/Vol] 10.0 mg/dL Critically high 8.5-9.9 M [facility] Comment on above: Performed By: #### C MP #### [facility] ([place], [place]) [address] [place] [address] Chloride [Moles/Vol] 101 mmol/L Normal 95-107 [facility] Comment on above: Performed By: #### C MP #### [facility] ([place], [place]) [address] [place] [address] CO2 [Moles/Vol] 24 mmol/L Normal 20-31 [facility] Comment on above: Performed By: #### C MP #### [facility] ([place], [place]) [address] [place] [address] Creatinine [Mass/Vol] 0.87 mg/dL Normal 0.50-0.90 [facility] Comment on above: Performed By: #### C MP #### [facility] ([place], [place]) [address] [place] [address] GFR/1.73 sq M predicted among blacks MDRD (S/P/Bld) [Vol rate/Area] mL/min/{1.73_m2} Normal >60 [facility] Comment on above: Result Comment: >60 mL/min/1.73m2 EGFR, calc. for ages 18 and older using the MDRD formula (not corrected for weight), is valid for stable renal function. Performed By: #### C MP #### [facility] ([place], [place]) [address] [place] [address] GFR/1.73 sq M.predicted MDRD (S/P/Bld) [Vol rate/Area] mL/min/{1.73_m2} Normal >60 [facility] Comment on above: Result Comment: >60 mL/min/1.73m2 EGFR, calc. for ages 18 and older using the MDRD formula (not corrected for weight), is valid for stable renal function. Performed By: #### C MP #### [facility] ([place], [place]) [address] [place] [address] Globulin (S) [Mass/Vol] 3.1 g/dL Normal 2.3-3.5 [facility] Comment on above: Performed By: #### C MP #### [facility] ([place], [place]) [address] [place] [address] Glucose [Mass/Vol] 94 mg/dL Normal 70-99 [facility] Comment on above: Performed By: #### C MP #### [facility] ([place], [place]) [address] [place] [address] Potassium [Moles/Vol] 3.9 mmol/L Normal 3.4-4.9 [facility] Comment on above: Performed By: #### C MP #### [facility] ([place], [place]) [address] [place] [address] Protein [Mass/Vol] 8.0 g/dL Normal 6.3-8.0 [facility] Comment on above: Performed By: #### C MP #### [facility] ([place], [place]) [address] [place] [address] Sodium [Moles/Vol] 139 mmol/L Normal 135-144 [facility] Comment on above: Performed By: #### C MP #### [facility] ([place], [place]) [address] [place] [address] Urea nitrogen [Mass/Vol] 12 mg/dL Normal 6-20 [facility] Comment on above: Performed By: #### C MP #### [facility] ([place], [place]) [address] [place] [address] Lactic Acidon 04-19-2020 Lactate [Moles/Vol] 1.8 mmol/L Normal 0.5-2.2 [facility] Comment on above: Performed By: #### L ACID #### [facility] ([place], [place]) [address] [place] [address] Prolactinon 04-19-2020 Prolactin 160.8 ng/mL Normal [facility] Comment on above: Result Comment: Defa ult Normal Ranges Female Male Non: 4.8-23.3 4.0-15.2 Performed By: #### P JAISON #### [facility] ([place], [place]) [address] [place] [address] Serum HCG Qualitativeon HCG.beta subunit Qn Negative Normal [facility] Comment on above: Performed By: #### S HCG #### [facility] ([place], [place]) [address] [place] [address] Urinalysis, reflex to cultur emily 04-19-2020 Urine Reflexed to Culture Not Indicated Normal [facility] Comment on above: Performed By: #### U AR #### [facility] ([place], [place]) [address] [place] [address] Bilirubin Ql (U) Negative Normal Negative [facility] Comment on above: Performed By: #### U AR #### [facility] ([place], [place]) [address] [place] [address] Clarity (U) Clear Normal Clear [facility] Comment on above: Performed By: #### U AR #### [facility] ([place], [place]) [address] [place] [address] Color (U) Yellow Normal Straw/Limestone [facility] Comment on above: Performed By: #### U AR #### [facility] ([place], [place]) [address] [place] [address] Glucose Ql (U) Negative Normal Negative [facility] Comment on above: Performed By: #### U AR #### [facility] ([place], [place]) [address] [place] [address] Hemoglobin Ql (U) Trace-intact Normal Negative [facility] Comment on above: Performed By: #### U AR #### [facility] ([place], [place]) [address] [place] [address] Ketones Ql (U) Negative Normal Negative [facility] Comment on above: Performed By: #### U AR #### [facility] ([place], [place]) [address] [place] [address] Leukocyte esterase Test strip Ql (U) Negative Normal Negative [facility] Comment on above: Performed By: #### U AR #### [facility] ([place], [place]) [address] [place] [address] Nitrite Ql (U) Negative Normal Negative [facility] Comment on above: Performed By: #### U AR #### [facility] ([place], [place]) [address] [place] [address] pH (U) 6.0 [pH] Normal 5.0-9.0 [facility] Comment on above: Performed By: #### U AR #### [facility] ([place], [place]) [address] [place] [address] Protein Ql (U) Negative Normal Negative [facility] Comment on above: Performed By: #### U AR #### [facility] ([place], [place]) [address] [place] [address] Specific gravity (U) [Rel density] 1.020 Normal 1.005-1.03 [facility] Comment on above: Performed By: #### U AR #### [facility] ([place], [place]) [address] [place] [address] Urobilinogen Qn (U) 0.2 {Alan'U}/dL Normal < 2.0 [facility] Comment on above: Performed By: #### U AR #### [facility] ([place], [place]) [address] [place] [address] Urine Microscopicon 02-20 20 Epithelial cells LM Ql (Urine sed) 0-2 Normal [facility] Comment on above: Performed By: #### U ARELY #### [facility] ([place], [place]) [address] [place] [address] RBC (U) [#/Vol] 0-2 Normal 0-2 [facility] Comment on above: Performed By: #### U ARELY #### [facility] ([place], [place]) [address] [place] [address] WBC (U) [#/Vol] 0-2 Normal 0-5 [facility] Comment on above: Performed By: #### U ARELY #### [facility] ([place], [place]) [address] [place] [address] CBC Auto Differentialon 10-0 1-2020 Basophils (Bld) [#/Vol] 0.1 10*3/uL 0 - 0.2 K/uL [place] Basophils/100 WBC (Bld) 0.4 % [place] Eosinophils (Bld) [#/Vol] 0.5 10*3/uL 0 - 0.7 K/uL [place] Eosinophils/100 WBC (Bld) 4.2 % [place] Erythrocyte distribution width (RBC) [Ratio] 12.5 % 11.5 - 14.5 % [place] Hematocrit (Bld) [Volume fraction] 39.4 % 37 - 47 % [place] Hemoglobin (Bld) [Mass/Vol] 13.3 g/dL 12 - 16 g/dL [place] Interpretation and review of laboratory results Abnormal [place] Lymphocytes (Bld) [#/Vol] 3.2 10*3/uL 1 - 4.8 K/uL [place] Lymphocytes/100 WBC (Bld) 26.9 % [place] MCH (RBC) [Entitic mass] 29.8 pg 27 - 31.3 pg [place] MCHC (RBC) [Mass/Vol] 33.8 % 33 - 37 % [place] MCV (RBC) [Entitic vol] 88.4 fL 82 - 100 fL [place] Monocytes (Bld) [#/Vol] 0.8 10*3/uL 0.2 - 0.8 K/uL [place] Monocytes/100 WBC (Bld) 6.8 % [place] Neutrophils Absolute 7.3 K/uL High 1.4 - 6.5 K/uL [place] Neutrophils/100 WBC (Bld) 61.7 % [place] Platelets (Bld) [#/Vol] 314 10*3/uL 130 - 400 K/uL [place] RBC (Bld) [#/Vol] 4.45 10*6/uL [place] WBC (Bld) [#/Vol] 11.9 10*3/uL High 4.8 - 10.8 K/uL [place] Comprehensive Metabolic Pane crescencio 04-18-2020 Albumin [Mass/Vol] 4.9 g/dL High 3.5 - 4.6 g/dL [place] ALP [Catalytic activity/Vol] 40 U/L 40 - 130 U/L [place] ALT [Catalytic activity/Vol] 17 U/L 0 - 33 U/L [place] Anion gap [Moles/Vol] 14 mmol/L [place] AST [Catalytic activity/Vol] 17 U/L 0 - 35 U/L [place] Bilirubin Ql (U) <0.2 0.2 - 0.7 mg/dL [place] Calcium [Mass/Vol] 10.0 mg/dL High 8.5 - 9.9 mg/dL [place] Chloride [Moles/Vol] 101 mmol/L [place] CO2 [Moles/Vol] 24 mmol/L [place] Creatinine [Mass/Vol] 0.87 mg/dL 0.5 - 0.9 mg/dL [place] GFR >60.0 >60 [place] Comment on above: >60 mL/min/1.73m2 EG FR, calc. for ages 18 and older using the MDRD formula (not corrected for weight), is valid for stable renal function. GFR Non- >60.0 >60 [place] Comment on above: >60 mL/min/1.73m2 EG FR, calc. for ages 18 and older using the MDRD formula (not corrected for weight), is valid for stable renal function. Globulin (S) [Mass/Vol] 3.1 g/dL 2.3 - 3.5 g/dL [place] Glucose [Mass/Vol] 94 mg/dL 70 - 99 mg/dL [place], [place] Interpretation and review of laboratory results Abnormal [place] Potassium [Moles/Vol] 3.9 mmol/L [place] Protein [Mass/Vol] 8.0 g/dL 6.3 - 8 g/dL [place] Sodium [Moles/Vol] 139 mmol/L [place] Urea nitrogen [Mass/Vol] 12 mg/dL 6 - 20 mg/dL [place] HCG Qualitative, Serumon hCG Qual Negative [place] Lactic Acid, Plasmaon 2019 Lactate [Moles/Vol] 1.8 mmol/L 0.5 - 2. 2 mmol/L [place] Microscopic Urinalysison Epithelial Cells, UA 0-2 /HPF [place] RBC (U) [#/Vol] 0-2 [place] WBC, UA 0-2 [place] Urine Reflex to Cultureon Bilirubin Urine Negative Negative [place] Blood, Urine Trace-intact Negative [place] Clarity, UA Clear Clear [place] Color, UA Yellow Straw/Yellow [place] Glucose, Ur Negative Negative mg/dL [place] Ketones Ql (U) Negative Negative mg/dL [place] Leukocyte esterase Test strip Ql (U) Negative Negative [place] Nitrite, Urine Negative Negative [place] pH, UA 6.0 [place] Protein (U) [Mass/Vol] Negative Negative mg/d L [place] Specific N[place]ma, UA 1.020 [place] Urine Reflex to Culture Not Indicated [place] Urobilinogen, Urine 0.2 <2.0 E.U./dL [place] ECHOCARDIOGRAPHY REPORT (HL) on 05-10-2017 ECHOCARDIOGRAPHY REPORT (HL) CANTUANNABEL SUMMERSN [id number] 179.6F [id number] VASCULAR LABReferring: Koffi Uriarte A.Reading: CURTIS GARCIA [...] 4 CH 16.1 cm2LA Volume Indexed 21.05 ml/r6Gyacdlgif/Systoli c FunctionMV E-wave Vmax 0.884 m/secMV deceleration time 193 msecMV A-wave Vmax 0.494 m/secLV septal e' Vmax 0.115 m/secLV lateral e' Vmax 0.189 m/secLV E:e' septal ratio 7.7 ratio [facility] [id number] [place] [address] [id number] 93Jackie Uriarte MDECHOCARDIOGRAPHY REPORTLV E:e' lateral ratio [...] [facility] [id number] [place] [address] [id number] 93Jackie Uriarte MDECHOCARDIOGRAPHY REPORTPericardium:Ther e is no [...] [facility] [id number] [place] [address] [id number] 93Jackie Uriarte MDECHOCARDIOGRAPHY REPORT Normal [facility] BASIC METABOLIC PANELon 04-18 Anion gap 10 mmol/L Normal 6-18 [facility] Comment on above: Order Comment: Is pa tient fasting? YES Performed By: #### L BMP, LGFRP ####[facility] [id number] [place] [address] Calcium 9.6 mg/dL Normal 8.6-10.3 [facility] Comment on above: Order Comment: Is pa tient fasting? YES Performed By: #### L BMP, LGFRP ####[facility] Ljbvvxvixo23484 [place] [address] Chloride 101 mmol/L Normal 98-107 [facility] Comment on above: Order Comment: Is pa tient fasting? YES Performed By: #### L BMP, LGFRP ####[facility] Lciazlqfeg79459 [place] [address] CO2 27 mmol/L Normal 21-32 [facility] Comment on above: Order Comment: Is pa tient fasting? YES Performed By: #### L BMP, LGFRP ####[facility] Ufdtfwjape42839 [place] [address] Creatinine 0.74 mg/dL Normal 0.5-1.05 [facility] Comment on above: Order Comment: Is pa tient fasting? YES Performed By: #### L BMP, LGFRP ####[facility] Zjeswrmbgz76206 [place] [address] Glucose mass conc 82 mg/dL Normal 74-99 [facility] Comment on above: Order Comment: Is pa tient fasting? YES Performed By: #### L BMP, LGFRP ####[facility] Cpnzzvevtn78278 [place] [address] Potassium molar conc 4.1 mmol/L Normal 3.5-5.3 [facility] Comment on above: Order Comment: Is pa tient fasting? YES Performed By: #### L BMP, LGFRP ####[facility] Umyufsncnl18489 [place] [address] Sodium 134 mmol/L Low 136-145 [facility] Comment on above: Order Comment: Is pa tient fasting? YES Performed By: #### L BMP LGFRP ####[facility] [id number] [place], [place] [id number] Urea nitrogen 14 mg/dL Normal 6-23 [facility] Comment on above: Order Comment: Is pa tient fasting? YES Performed By: #### L BMP LGFRP ####[facility] [address] [place], [place] [id number] CBC AUTOon 05-04-2017 Erythrocyte distribution width Auto Ratio (RBC) 12.8 % Normal 11.5-14.5 [facility] Comment on above: Performed By: #### L CBC ####[facility] [address] [place] [address] Erythrocytes (RBC) 4.65 10*6/uL Normal 3.5-5.5 [facility] Comment on above: Performed By: #### L CBC ####[facility] [address] [place] [address] Hematocrit (HCT) 41.1 % Normal 36.0-48.0 [facility] Comment on above: Performed By: #### L CBC ####[facility] [address] [place] [address] Hemoglobin mass conc (Bld) 13.8 g/dL Normal 12.0-15.0 [facility] Comment on above: Performed By: #### L CBC ####[facility] [address] [place] [address] MCH 29.7 pg Normal 25.4-34.6 [facility] Comment on above: Performed By: #### L CBC ####[facility] N[address]gs[address] [place], [place] [id number] MCHC mass conc (RBC) 33.6 g/dL Normal 30.0-36.0 [facility] Comment on above: Performed By: #### L CBC ####[facility] [address] [place], [place] [address] MCV 88.4 fL Normal 79.0-98.0 [facility] Comment on above: Performed By: #### L CBC ####[facility] Yebtdlqsha14261 [place] [address] Platelet mean volume (PMV) 9.3 fL Normal 8.4-11.9 [facility] Comment on above: Performed By: #### L CBC ####[facility] Nlrrmaazgx57509 [place] [address] Platelets 277 10*3/uL Normal 140-440 [facility] Comment on above: Performed By: #### L CBC ####[facility] Yxckcadhsz68409 [place] [address] WBC (Leukocytes) 6.1 10*3/uL Normal 3.9-11.0 [facility] Comment on above: Performed By: #### L CBC ####[facility] Xvazwmecqf66584 [place] [address] GLOMERULAR FILTRATION RATE E STon 05-04-2017 eGFR (non-black) mL/min/{1.73_m2} Normal > 60 [facility] Comment on above: Order Comment: Is pa tient fasting? YES Performed By: #### L BMP, LGFRP ####[facility] Cvyznecbbg82530 [place] [address] IF AMER > 90 Normal > 60 [facility] Comment on above: Order Comment: Is pa tient fasting? YES Result Comment: Effe ctive 12/12/14:CKD-EPI equation / based on IDMS traceable creatinine.Continue to use the CREAT CLR-DOSE (Cockgroft-Gault)value for determining medication dose. Performed By: #### L BMP, LGFRP ####[facility] [id number] [place] [address] Vital Signs Date Time Vital Sign Value Performing Clinician Yael murguia 09-12-2024 12:28-0500 Body height 175.3 cm Koffi Uriarte MD Work Phone: [facility] 09-12-2024 12:28-0500 Body mass index (BMI) [Ratio] 27.06 kg/m2 Koffi Uriarte MD Work Phone: [facility] 09-12-2024 12:28-0500 Body temperature 97.3 [degF] Koffi Uriaret MD Work Phone: [facility] 09-12-2024 12:28-0500 Body weight 83.12 kg Koffi Uriarte MD Work Phone: [facility] 09-12-2024 12:28-0500 Diastolic blood pressure 96 mm[Hg] Koffi Uriarte MD Work Phone: [facility] 09-12-2024 12:28-0500 Heart rate 71 /min Koffi Uriarte MD Work Phone: [facility] 09-12-2024 12:28-0500 Systolic blood pressure 122 mm[Hg] Koffi Uriarte MD Work Phone: [facility] 05-03-2024 09:18-0400 Body height 175.3 cm Nedra Calderon MD Work Phone: [facility] 05-03-2024 09:18-0400 Body mass index (BMI) [Ratio] 28.15 kg/m2 Nedra Calderon MD Work Phone: [facility] 05-03-2024 09:18-0400 Body temperature 96.91 [degF] Nedra Calderon MD Work Phone: [facility] 05-03-2024 09:18-0400 Body weight 86.46 kg Nedra Calderon MD Work Phone: [facility] 05-03-2024 09:18-0400 Diastolic blood pressure 82 mm[Hg] Nedra Calderon MD Work Phone: [facility] 05-03-2024 09:18-0400 Heart rate 67 /min Nedra Calderon MD Work Phone: [facility] 05-03-2024 09:18-0400 Systolic blood pressure 136 mm[Hg] Nedra Calderon MD Work Phone: [facility] 11-09-2023 15:27-0400 Body height 175.26 cm [facility] 11-09-2023 15:27-0400 Body mass index (BMI) [Ratio] 28.2 kg/m2 [facility] 11-09-2023 15:27-0400 Body temperature 98.1 [degF] [facility] 11-09-2023 15:27-0400 Body weight 86.74 kg [facility] 11-09-2023 15:27-0400 Heart rate 63 /min [facility] 11-09-2023 15:27-0400 Respiratory rate 18 /min [facility] 11-09-2023 15:27-0400 SaO2% (BldA) [Mass fraction] 99 % [facility] 07-31-2022 10:54-0500 Body height 175.26 cm Koffi Clementeson Work Phone: [employer] Work Phone: 07-31-2022 10:54-0500 Body mass index (BMI) [Ratio] 31.01 kg/m2 Koffi Clementeson Work Phone: [employer] Work Phone: 07-31-2022 10:54-0500 Body surface area Derived from formula 2.11 m2 Koffi Clementeson Work Phone: [employer] Work Phone: 07-31-2022 10:54-0500 Body temperature 97.6 [degF] Koffi Clementeson Work Phone: [employer] Work Phone: 07-31-2022 10:54-0500 Body weight 95.26 kg Koffi Clementeson Work Phone: [employer] Work Phone: 07-31-2022 10:54-0500 Diastolic blood pressure 87 mm[Hg] Koffi Clementeson Work Phone: [employer] Work Phone: 07-31-2022 10:54-0500 Heart rate 76 /min Koffi Uriarte Work Phone: GX[facility]NGPY-[place] Work Phone: 07-31-2022 10:54-0500 Respiratory rate 18 /min Koffi Uriarte Work Phone: ZQ-TVAC-[place] Work Phone: 07-31-2022 10:54-0500 Systolic blood pressure 121 mm[Hg] Koffi Uriarte Work Phone: WI-CPCH-[place] Work Phone: 12-24-2021 11:32-0400 Body height 175.26 cm Koffi Uriarte Work Phone: FV-Qgxcvmjdq-Mxsdye ke SJW DO Work Phone: 12-24-2021 11:32-0400 Body mass index (BMI) [Ratio] 31.03 kg/m2 Koffi Uriarte Work Phone: YT-Isdbqrgdb-Mjxfrg ke SJW DO Work Phone: 12-24-2021 11:32-0400 Body surface area Derived from formula 2.11 m2 Koffi Uriarte Work Phone: JN-Ufybzxosh-Sphgow ke SJW DO Work Phone: 12-24-2021 11:32-0400 Body temperature 97.1 [degF] Koffi Uriarte Work Phone: XF-Bobnejuxx-Vykpsf ke SJW DO Work Phone: 12-24-2021 11:32-0400 Body weight 95.3 kg Koffi Uriarte Work Phone: PN-Osfkmcpgd-Bltdqz ke SJW DO Work Phone: 12-24-2021 11:32-0400 Diastolic blood pressure 76 mm[Hg] Koffi Uriarte Work Phone: OO-Cxeeskslc-Pvolyb ke SJW DO Work Phone: 12-24-2021 11:32-0400 Heart rate 54 /min Koffi Uriarte Work Phone: BM-Qrztapkqu-Mtllcz ke SJW DO Work Phone: 12-24-2021 11:32-0400 SaO2% (BldA) [Mass fraction] 100 % Koffi Uriarte Work Phone: QN-Fqnuekbwl-Oczvxj ke SJW DO Work Phone: 12-24-2021 11:32-0400 Systolic blood pressure 114 mm[Hg] Koffi Uriarte Work Phone: KL-Wyatifksg-Rzbsua ke SJW DO Work Phone: 11-17-2021 13:08-0400 Body height 172.72 cm Koffi Uriarte Work Phone: [employer] Work Phone: 11-17-2021 13:08-0400 Body mass index (BMI) [Ratio] 32.39 kg/m2 Koffi Uriarte Work Phone: RZ-IRRC-[place] Work Phone: 11-17-2021 13:08-0400 Body surface area Derived from formula 2.1 m2 Koffi Uriarte Work Phone: SU-RPDZ-[place] Work Phone: 11-17-2021 13:08-0400 Body temperature 97 [degF] Koffi Uriarte Work Phone: RI-NUER-Iekt [place] Work Phone: 11-17-2021 13:08-0400 Body weight 96.62 kg Koffi Uriarte Work Phone: FN-JKFB-Fnxe [place] Work Phone: 11-17-2021 13:08-0400 Diastolic blood pressure 84 mm[Hg] Koffi Uriarte Work Phone: HE-DYSB-Cdzi [place] Work Phone: 11-17-2021 13:08-0400 Heart rate 70 /min Koffi Uriarte Work Phone: SS-VCPJ-Vzhp [place] Work Phone: 11-17-2021 13:08-0400 Respiratory rate 18 /min Koffi Uriarte Work Phone: YD-MXUO-Qrbp [place] Work Phone: 11-17-2021 13:08-0400 SaO2% (BldA) [Mass fraction] 96 % Koffi Uriarte Work Phone: GZ-PTZW-Ejbj [place] Work Phone: 11-17-2021 13:08-0400 Systolic blood pressure 126 mm[Hg] Koffi Uriarte Work Phone: RV-CLZK-Cxzw [place] Work Phone: 06-25-2021 10:54-0500 Body height 172.72 cm Koffi Uriarte Work Phone: XG-Mfnaczlvq-Awtrsd ke SJW DO Work Phone: 06-25-2021 10:54-0500 Body mass index (BMI) [Ratio] 32.08 kg/m2 Koffi Uriarte Work Phone: LI-Jlpdgzpgc-Fckfzl ke SJW DO Work Phone: 06-25-2021 10:54-0500 Body surface area Derived from formula 2.09 m2 Koffi Uriarte Work Phone: IO-Xhvsnrzrc-Fmqyyl ke SJW DO Work Phone: 06-25-2021 10:54-0500 Body temperature 97.1 [degF] Koffi Uriarte Work Phone: IP-Lhtfznrwz-Pfdlci ke SJW DO Work Phone: 06-25-2021 10:54-0500 Body weight 95.71 kg Koffi Uriarte Work Phone: MZ-Vswolzfox-Okzjrk ke SJW DO Work Phone: 06-25-2021 10:54-0500 Diastolic blood pressure 62 mm[Hg] Koffi A Uriarte Work Phone: IS-Mwzeoshtd-Ufqvld ke SJW DO Work Phone: 06-25-2021 10:54-0500 Heart rate 67 /min Koffi A Urairte Work Phone: QU-Qyrxfbavb-Klyaij ke SJW DO Work Phone: 06-25-2021 10:54-0500 Respiratory rate 18 /min Koffi Clementeson Work Phone: TW-Zjtgpvmle-Hfcovo ke SJW DO Work Phone: 06-25-2021 10:54-0500 SaO2% (BldA) [Mass fraction] 99 % Koffi Uriarte Work Phone: SS-Ygpznvljc-Srzazo ke SJW DO Work Phone: 06-25-2021 10:54-0500 Systolic blood pressure 131 mm[Hg] Koffi Uriarte Work Phone: SM-Rwhxuvfbi-Wzgloi ke SJW DO Work Phone: 05-20-2021 15:59-0400 Body height 172.72 cm Koffi Alison Uriarte Work Phone: QM-WBCI-[place] Work Phone: 05-20-2021 15:59-0400 Body mass index (BMI) [Ratio] 31.93 kg/m2 Koffi A Uriarte Work Phone: GP-AJXP-Aias [place] Work Phone: 05-20-2021 15:59-0400 Body surface area Derived from formula 2.09 m2 Koffi Uriarte Work Phone: PK-MKOW-[place] Work Phone: 05-20-2021 15:59-0400 Body temperature 98.1 [degF] Koffi Uriarte Work Phone: DY-IJQH-Unfy [place] Work Phone: 05-20-2021 15:59-0400 Body weight 95.26 kg Koffi Uriarte Work Phone: SS-YJZD-Xmfj [place] Work Phone: 05-20-2021 15:59-0400 Diastolic blood pressure 82 mm[Hg] Koffi Uriarte Work Phone: FN-EPDK-Yoxj [place] Work Phone: 05-20-2021 15:59-0400 Heart rate 72 /min Koffi Uriarte Work Phone: UR-WLKV-Hxzo [place] Work Phone: 05-20-2021 15:59-0400 Respiratory rate 16 /min Koffi Uriarte Work Phone: DI-UOMM-Ghpl [place] Work Phone: 05-20-2021 15:59-0400 Systolic blood pressure 122 mm[Hg] Koffi Uriarte Work Phone: AP-LYLN-[place] Work Phone: 12-24-2020 14:45-0400 Body height 172.72 cm Koffi Uriarte Work Phone: NZ-KPMZ-Xwwe [place] Work Phone: 12-24-2020 14:45-0400 Body mass index (BMI) [Ratio] 30.71 kg/m2 Koffi Uriarte Work Phone: SY-AFCB-Htwt [place] Work Phone: 12-24-2020 14:45-0400 Body surface area Derived from formula 2.05 m2 Koffi Uriarte Work Phone: GN-DWEB-[place]f [place] Work Phone: 12-24-2020 14:45-0400 Body temperature 97.8 [degF] Koffi Uriarte Work Phone: FE-YUXY-Kpjh [place] Work Phone: 12-24-2020 14:45-0400 Body weight 91.63 kg Koffi Uriarte Work Phone: ZX-TUHS-Mwdu [place] Work Phone: 12-24-2020 12:59-0400 Body height 172.72 cm Koffi Uriarte Work Phone: YH-WFGG-[place] Work Phone: 12-24-2020 12:59-0400 Body mass index (BMI) [Ratio] 30.71 kg/m2 Koffi Uriarte Work Phone: UR-FLFH-Xjxq [place] Work Phone: 12-24-2020 12:59-0400 Body surface area Derived from formula 2.05 m2 Koffi Uriarte Work Phone: XW-CDMC-Bxgp [place] Work Phone: 12-24-2020 12:59-0400 Body temperature 98.2 [degF] Koffi Uriarte Work Phone: YG-LJZI-Pgkf [place] Work Phone: 12-24-2020 12:59-0400 Body weight 91.63 kg Koffi Uriarte Work Phone: FA-JCCN-Sagq [place] Work Phone: 12-24-2020 12:59-0400 Diastolic blood pressure 90 mm[Hg] Koffi Uriarte Work Phone: XQ-ZWYG-Gwrw [place] Work Phone: 12-24-2020 12:59-0400 Heart rate 75 /min Koffi Uriarte Work Phone: RF-DITB-Kxml [place] Work Phone: 12-24-2020 12:59-0400 Respiratory rate 16 /min Koffi Uriarte Work Phone: TF-ICCO-Nmvh [place] Work Phone: 12-24-2020 12:59-0400 Systolic blood pressure 147 mm[Hg] Koffi Uriarte Work Phone: NY-BWSH-[place] Work Phone: 08-14-2020 13:26-0500 BMI (Body Mass Index) 29.04 kg/m2 Koffi Uriarte UN-Boxniaaud-Wbsjrw ke SJW DO Work Phone: 08-14-2020 13:26-0500 Body Temperature 97.5 [degF] Koffi Uriarte MP-Neurology -[place] ke SJW DO Work Phone: 08-14-2020 13:26-0500 Body weight 86.64 kg Koffi Uriarte MP-Neurology- [place] ke SJW DO Work Phone: 08-14-2020 13:26-0500 BP Diastolic 100 mm[Hg] Koffi Uriarte MP-Neurology- [place] ke SJW DO Work Phone: 08-14-2020 13:26-0500 BP Systolic 150 mm[Hg] Koffi Uriarte MP-Neurology- [place] ke SJW DO Work Phone: 08-14-2020 13:26-0500 BSA (Body Surface Area) 2 m2 Koffi Uriarte EH-Mtmyzfmzi-Zclios ke SJW DO Work Phone: 08-14-2020 13:26-0500 Height 172.72 cm Koffi Uriarte MP-Neurology- [place] ke SJW DO Work Phone: 05-28-2020 15:24-0500 BMI (Body Mass Index) 28.59 kg/m2 Koffi RAGLAND-Jennifer [place] Work Phone: 05-28-2020 15:24-0500 Body Temperature 97.6 [degF] Koffi MACHADOPC-Jennifer Ruby Work Phone: 05-28-2020 15:24-0500 Body weight 85.28 kg Koffi MACHADOPC-[place] Work Phone: 05-28-2020 15:24-0500 BP Diastolic 82 mm[Hg] Koffi Ruby Work Phone: 05-28-2020 15:24-0500 BP Systolic 122 mm[Hg] Koffi MACHADOPC-Jennifer Ruby Work Phone: 05-28-2020 15:24-0500 BSA (Body Surface Area) 1.99 m2 Koffi Uriarte MP-WSPC-Jennifer [facility] Work Phone: 05-28-2020 15:24-0500 Height 172.72 cm Koffi Ruby Work Phone: 05-28-2020 15:24-0500 Pulse (Heart Rate) 70 /min Koffi RAGLAND-[place] Work Phone: 05-28-2020 15:24-0500 Respiratory Rate 18 /min Koffi Uriarte MP-WSPC-Jennifer [facility] Work Phone: 04-25-2020 16:01-0400 BMI (Body Mass Index) 28.59 kg/m2 Koffi MACHADOPCDimple Ruby Work Phone: 04-25-2020 16:01-0400 Body Temperature 98.6 [degF] Koffi MACHADOPCDimple Ruby Work Phone: 04-25-2020 16:01-0400 Body weight [...] 144 mm[Hg] [facility], [place] 04-18-2020 22:17-0400 BMI (Body Mass Index) 28.06 kg/m2 [facility], [place] 04-18-2020 22:17-0400 Body Temperature 98.91 [degF] [facility], [place] 04-18-2020 22:17-0400 Body weight 86.18 kg [facility], [place] 04-18-2020 22:17-0400 Height 175.3 cm [facility], [place] 04-18-2020 22:17-0400 Pulse (Heart Rate) 105 /min [facility], [place] 04-18-2020 22:17-0400 Pulse Oximetry 97 % [facility] [place] [place] 04-18-2020 22:17-0400 Respiratory Rate 16 /min [facility] [place], [place] Encounters Encounter Date Encounter Type Care Provider Facility Start: 01-22-2025 End: 01-22-2025 Clinisync Result Encounter Willis Chen DO Work Phone: [facility] External [facility] Unsolicited Start: 01-22-2025 End: 01-22-2025 Clinisync Result Encounter Willis Chen DO Work Phone: [facility] Unsolicited Start: 01-12-2025 End: 01-12-2025 ambulatory Not Available Start: 09-12-2024 End: 09-12-2024 Office outpatient visit 25 minutes Koffi Uriarte MD Work Phone: [facility] Comment on above: Benign essential hyp ertension (Primary Dx); Seizure (Multi); Vitamin B12 deficiency; Fatigue, unspecified type; Well adult health check; Vitamin D deficiency Start: 09-12-2024 End: 09-12-2024 Patient encounter status Koffi Uriarte MD Work Phone: [facility] Work Phone: Start: 09-12-2024 End: 09-12-2024 ambulatory KOFFI Rosas [facility] Ambulatory Start: 09-12-2024 End: 09-12-2024 Encounter for general adult medical examination without abnormal findings KOFFI Alison [facility] Ambulatory Start: 05-03-2024 End: 05-03-2024 Office outpatient visit 25 minutes Nedra Calderon MD Work Phone: [facility] Comment on above: Seizure (Multi) (Elenita vernon Dx) Start: 05-03-2024 End: 05-03-2024 ambulatory NEDRA CALDERON [facility] Ambulatory Start: 04-13-2024 End: 07-12-2024 ambulatory Spenser COLLINS [place] Start: 03-30-2024 End: 03-30-2024 ambulatory Vernon PABLO [place] Start: 12-15-2023 End: 12-15-2023 ambulatory None Provider Facility:[facility] Start: 11-09-2023 End: 11-09-2023 ambulatory [facility] Work Phone: Start: 11-09-2023 End: 11-09-2023 Patient encounter procedure [facility] Work Phone: Start: 08-04-2023 End: 08-04-2023 ambulatory Willis Chen Facility:[facility] Start: 04-30-2023 End: 04-30-2023 Office outpatient visit 15 minutes Nedra Calderon MD Work Phone: [facility] Comment on above: Seizure (CMS/HCC) (P rimary Dx) Start: 11-25-2022 End: 11-26-[address] WILLIS CHEN . Facility: Start: 11-16-2022 End: 11-17-[address] WILLIS CHEN . Facility: Start: 07-31-2022 Current tobacco non- user cad cap copd pv dm Koffi Uriarte Work Phone: [employer] Work Phone: Start: 07-31-2022 Periodic preventive med est patient 18-39 yrs Koffi Uriarte Work Phone: [employer] Work Phone: Start: 07-31-[address] Koffi Uriarte Facility:[id number] Start: 04-16-2022 End: 04-17-2022 ambulatory KAVITA SWEET Facility:[facility] Start: 03-24-2022 Telephone encounter Kavita lyons DO Work Phone: OB/Gynecology Comment on above: Bleeding With Pregna ncy Start: 03-24-2022 End: 03-24-2022 Patient encounter procedure Dane Hassan [facility] Start: 03-19-2022 Telephone encounter Georgia Nathan th [employer] Work Phone: CB/Gynecology Comment on above: Appointment Start: 03-18-2022 AUDIT Koffi Carlson ardson Work Phone: MZ-Mbohnicvb-Gpusbgvl SJW DO Work Phone: Start: 02-03-2022 ambulatory Brendan Pattie PA-C Work Phone: OB/Gynecology Comment on above: Bacteria Vaginosis Start: 01-02-2022 AUDIT Koffi Alison Carlson ardson Work Phone: OC-NZPD-[place] Work Phone: Start: 12-24-2021 Office outpatient vi sit 15 minutes Koffi A Uriarte Work Phone: YR-Bckauhfuz-Rsooifwz SJW DO Work Phone: Start: 11-17-2021 Office outpatient vi sit 15 minutes Koffi A Uriarte Work Phone: QJ-RMII-[place] Work Phone: Start: 09-29-2021 AUDIT Koffi Alison Carlson ardson Work Phone: FI-ZJSW-Rxjk [place] Work Phone: Start: 09-09-2021 End: 09-09-2021 ambulatory BRENDAN PATTIE Facility:[facility] Start: 07-04-2021 End: 07-05-2021 ambulatory GEORGIA DWYER Facility:[facility] Start: 07-04-2021 Encounter for gynecological examination (general) (routine) without abnormal findings GEORGIA DWYER [facility] Start: 06-25-2021 Office outpatient vi sit 25 minutes Koffi A Uriarte Work Phone: QR-Opvzddchk-Arahecnn SJW DO Work Phone: Start: 05-22-2021 Chart Update Koffi Carlson ardson Work Phone: UG-PDPC-Anfj [place] Work Phone: Start: 05-20-2021 Office outpatient vi sit 25 minutes Koffi Uriarte Work Phone: EB-VELH-Mfvb [place] Work Phone: Start: 05-20-2021 Patient encounter procedure Koffi Uriarte Work Phone: DG-FGBD-Xyji [place] Work Phone: Start: 03-28-2021 AUDIT Koffi Carlson ardson Work Phone: XD-PXNM-[place] Work Phone: Start: 12-24-2020 Chart Update Koffi Carlson ardson Work Phone: SQ-CUFT-[facility] [place] Work Phone: Start: 12-24-2020 Office outpatient vi sit 25 minutes Koffi Clementeson Work Phone: NE-ISBD-[place] Work Phone: Start: 08-14-2020 Patient encounter procedure Koffi Uriarte SU-Vwwfptacl-[employer] DO Work Phone: Start: 06-11-2020 Patient encounter procedure Koffi Uriarte CY-Bmoanumhi-Zcvdnm[facility] [employer] DO Work Phone: Start: 05-28-2020 Patient encounter procedure Koffi Uriarte LK-HLMX[facility] Work Phone: Start: 05-09-2020 End: 05-12-2020 Patient encounter procedure [facility] Start: 05-09-2020 End: 05-11-2020 Subsequent hospital visit by physician Madeline Frey 1 EEG Comment on above: 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) Start: 04-25-2020 Patient encounter procedure Koffi Uriarte DD-KYAO-[place] Work Phone: Start: 04-19-2020 End: 04-19-2020 Emergency department patient visit [facility] Start: 04-18-2020 End: 04-19-2020 Emergency department patient visit Tu Curran Work Phone: [facility] ED Comment on above: Seizure (HCC) (Prima ry Dx) Start: 03-02-2019 Patient encounter procedure Koffi Uriarte PX-OEGM-[place]kva [place] Work Phone: Start: 05-04-2017 Ambulatory Koffi Uriarte Fa cility:[facility] Patient encounter status Koffi Uriarte Work Phone: JU-ZMNH-[place]cpb [place] Work Phone: Procedures Date Procedure Procedure Detail Performing Clinician Start: 01-22-2025 BOX TEST Willis Chen DO Work Phone: Start: 09-12-2024 25-hydroxyvitamin D3 [Mass/volume] in Serum or Plasma Koffi Uriarte MD Work Phone: Start: 09-12-2024 Cobalamin (Vitamin B12) [Mass/volume] in Serum or Plasma Koffi Uriarte MD Work Phone: Start: 09-12-2024 Complete blood count Koffi jackman MD Work Phone: Start: 09-12-2024 Comprehensive metabolic panel Koffi Uriarte MD Work Phone: Start: 09-12-2024 Lipid panel Koffi Uriarte MD Work Phone: Start: 09-12-2024 TSH WITH REFLEX TO FREE T4 IF ABNORMAL Koffi Uriarte MD Work Phone: Start: 09-12-2024 Lipid 1996 panel - Serum or Plasma Koffi Uriarte MD Work Phone: Start: 03-10-2023 Microscopic observation [Identifier] in Cervix by Cyto stain Nedra Calderon MD Work Phone: Start: 03-09-2023 Microscopic observation [Identifier] in Cervix by Cyto stain Willis Chen DO Work Phone: Start: 12-24-2020 Thyrotropin [Units/volume] in Serum or [...] Work Phone: Start: 05-09-2020 Electroencephalogram w/rec awake&drowsy Spikehuber Garcia Work Phone: Start: 04-19-2020 Assay of lactate ZAC ANDERSON Start: 04-19-2020 Assay of prolactin ZAC ANDERSON Start: 04-19-2020 Ct head/brain w/o contrast material ZAC ANDERSON Start: 04-19-2020 Urinalysis microscopic only ZAC MAXWELL Start: 04-19-2020 Urnls dip stick/tablet rgnt auto w/o microscopy ZAC ANDERSON Start: 04-19-2020 Blood count complete auto&auto difrntl wbc ZAC ANDERSON Start: 04-19-2020 Comprehensive metabolic panel ZAC RBITT Start: 04-19-2020 Gonadotropin chorionic qualitative ZAC ANDERSON Start: 04-19-2020 DIET NPO, NOW ZAC ANDERSON Start: 04-19-2020 SEIZURE PRECAUTIONS ZAC ANDERSON Start: 04-19-2020 SALINE LOCK IV ZAC ANDERSON Start: 04-18-2020 Assay of lactate Tu knutson Work Phone: Start: 04-18-2020 Urinalysis microscopic only Tu urbano Work Phone: Start: 04-18-2020 Urnls dip stick/tablet rgnt auto w/o microscopy Tu Truongfield Work Phone: Start: 04-18-2020 Blood count complete auto&auto difrntl wbc Tu Curran Work Phone: Start: 04-18-2020 Comprehensive metabolic panel Tu Truongfield Work Phone: Start: 04-18-2020 Gonadotropin chorionic qualitative Tu Henley [place] Work Phone: History of No histor y of surgery Koffi Uriarte No history of surgery Shahnaz Uriarte Work Phone: Plan of Treatment Date Care Activity Detail Author Start: 10-02-2043 Zoster Vaccines (1 o f 2) Zoster Vaccines (1 of 2) [facility] Start: 06-08-2033 DTaP/Tdap/Td Vaccine s (9 - Td or Tdap) DTaP/Tdap/Td Vaccines (9 - Td or Tdap) [facility] Start: 09-12-2029 Lipid panel Lipid Panel [facility] Start: 02-17-2028 DTaP/Tdap/Td Vaccine s (8 - Td or Tdap) DTaP/Tdap/Td Vaccines (8 - Td or Tdap) [facility] Start: 03-10-2026 Screening for malignant neoplasm of cervix [facility] Start: 03-09-2026 Screening for malignant neoplasm of cervix [facility] Start: 05-07-2025 End: 05-07-2025 Patient encounter procedure 05/07/2025 2:00 PM EDT Office Visit [address] Chiu [address] [address] Nedra Calderon MD [address] [place] [address] Dr Chiu 2, [address] [address] [facility] Start: 03-19-2025 Influenza vaccination Influenza Vacc ine (#1) [facility] Start: 02-12-2025 End: 02-12-2025 Patient encounter procedure 02/12/2025 2:20 PM EDT Office Visit [facility] [address] [place] [phone] [place] [address] [place] [address] [facility] Start: 02-07-2025 End: 02-07-2025 Patient encounter procedure 02/07/2025 3:10 PM EDT Routine [facility] [address] [place] [address] Willis Chen, [address] [place], [place] [id number] [facility] Start: 05-03-2024 End: 05-03-2025 lamoTRIgine [Mass/volume] in Serum or Plasma Lamotrigine level Lab Routine Seizure (Multi) Expected: 05/03/2024 (Approximate), Expires: 05/03/2025 [facility] Service Area Work Phone: Comment on above: Expected: 05/03/2024 (Approximate), Expires: 05/03/2025 Start: 03-19-2024 COVID-19 Vaccine ( season) COVID-19 Vaccine ( season) [facility] Start: 03-19-2024 COVID-19 Vaccine ( season) COVID-19 Vaccine ( season) [facility] Start: 03-19-2024 Influenza vaccination Influenza Vacc ine (#1) [facility] Start: 10-02-2023 Screening for malignant neoplasm of cervix HPV/Cotest [facility] Start: 08-02-2023 PHYSICAL, Provider: Koffi Uriarte, Status: Pen, Time: 9:00 AM PHYSICAL, Provider: Koffi Uriarte, Status: Pen, Time: 9:00 AM [facility] Work Phone: Start: 08-02-2023 End: 08-02-2023 Patient encounter procedure 08/02/2023 9:00 AM EST Office Visit [facility] [address] [phone] [place] [address] [place] [address] [facility] Start: 07-02-2023 PAP TESTING PAP TESTING [facility] Start: 07-02-2023 Screening for malignant neoplasm of cervix [facility] Start: 12-24-2022 VIRANA LUISA, Provider : Nedra Calderon, Status: Pen, Time: 10:00 AM ERIKA, Provider: Nedra Calderon, Status: Pen, Time: 10:00 AM WS-Yfhiwyhvw-Naeusqs e SJW DO Work Phone: Start: 05-22-2022 PHYSICAL, Provider: Koffi Uriarte, Status: Pen, Time: 9:50 AM PHYSICAL, Provider: Koffi Uriarte, Status: Pen, Time: 9:50 AM RQ-VJLU-[place]slg [place] Work Phone: Start: 03-24-2022 End: 05-24-2022 Choriogonadotropin.bet a subunit [Units/volume] in Serum or Plasma HCG QUANTITATIVE Lab Routine Bleeding in early Expected: 03/24/2022, Expires: 05/24/2022 [facility] Work Phone: Comment on above: Expected: 03/24/2022 , Expires: 05/24/2022 Start: 03-19-2022 Influenza vaccination INFLUENZA (#1) [facility] Start: 12-24-2021 Thyroid stimulating hormone measurement TSH Level [facility] Start: 12-24-2021 FUVGENERAL, Provider : Nedra Calderon, Status: Pen, Time: 11:30 AM FUVGENEJACK, Provider: Nedra Calderon, Status: Pen, Time: 11:30 AM HK-Guxkpwape-Abpnfpc e SJW DO Work Phone: Start: 11-17-2021 FUV, Provider: Koffi Uriarte, Status: Pen, Time: 1:00 PM FUV, Provider: Koffi Uriarte, Status: Pen, Time: 1:00 PM MY-LZCH-[place]rut [place] Work Phone: Start: 07-01-2021 COVID-19 VACCINE (3 - Booster for Pfizer series) COVID-19 VACCINE (3 - Booster for Pfizer series) [facility] Start: 06-25-2021 FUVGENERAL, Provider : Nedra Calderon, Status: Pen, Time: 2:00 PM FUVGENERAL, Provider: Nedra Calderon, Status: Pen, Time: 2:00 PM TX-KGHD-Pqrl [place] Work Phone: Start: 06-25-2021 FUVGENERAL, Provider : Nedra Calderon, Status: Pen, Time: 11:00 AM FUVGENERAL, Provider: Nedra Calderon, Status: Pen, Time: 11:[address]-CIBL-[place] Work Phone: Start: 05-20-2021 FUV, Provider: Koffi Uriarte, Status: Pen, Time: 3:40 PM FUV, Provider: Koffi Uriarte, Status: Pen, Time: 3:40 PM EF-ZQZG-Yxuq [place] Work Phone: Start: 03-31-2021 FUV, Provider: Koffi Uriarte, Status: Pen, Time: 2:00 PM FUV, Provider: Koffi Uriarte, Status: Pen, Time: 2:00 PM FU-HMDV-[place] Work Phone: Start: 03-26-2021 COVID-19 Vaccine (3 - Pfizer series) COVID-19 Vaccine (3 - Pfizer series) [facility] Start: 03-19-2020 Influenza vaccination Flu vaccine (# 1) [place] Start: 03-02-2018 DTaP/Tdap/Td vaccine (7 - Td) DTaP/Tdap/Td vaccine (7 - Td) [place] Start: 03-02-2018 Urine microalbumin profile DTAP,TDAP,TD (7 - Td or Tdap) [facility] Start: 2014 Screening for malignant neoplasm of cervix [facility] Start: 10-02-2011 HEPATITIS C SCREENING HEPATITIS C [facility] Start: 10-02-2011 Hepatitis C screening Hepatitis C [facility] Start: 10-02-2011 HIV SCREENING HIV SCREENING [facility] Start: 2008 HIV screening HIV screen [facility] [place] Start: 2006 Varicella vaccination Varicell a Vaccines (1 of 2 - 13+ 2-dose series) [facility] Start: 2005 Adult depression screening assessment DEPRESSION SCREENING [facility] Start: 2004 HPV vaccine (1 - 2-dose series) HPV vaccine (1 - 2-dose series) [place] Start: 04-09-1999 Varicella vaccination Varicell a Vaccines (1 of 2 - 2-dose childhood series) [facility] Start: 1994 Varicella vaccine (1 of 2 - 2-dose childhood series) Varicella vaccine (1 of 2 - 2-dose childhood series) [place] Start: 1993 HIV screening HIV Screening [facility] Start: 1993 Lipid panel Lipid Panel [facility] Start: 1993 [facility]2020 CT Head WO Contrast CT Head WO Contrast Imaging STAT Once for 1 Occurrences starting 04/18/2020 until 04/18/2020 [place] Comment on above: Once for 1 Occurrenc es starting 04/18/2020 until 04/18/2020 CT Head WO Contrast CT Head WO C ontrast Imaging STAT 04/18/2020 11:15 PM EDT [place] End: 04-18-2020 Prolactin Prolactin Lab STAT One Time for 1 Occurrences starting 04/18/2020 until 04/18/2020 [place] Comment on above: One Time for 1 Occur rences starting 04/18/2020 until 04/18/[address] AT 04/18/2020 11:17 PM EDT [place] EI-RZJR-Gqzs Crystal hicks Work Phone: [facility] NEGATED: Highlighted row has been ruled out! Planned Goals not documented JT-ZXTU-Wcbk [place] Work Phone: Immunizations Immunization Date Immunization Notes Care Provider Radha laura 11-01-2023 hepatitis B vaccine, adult dosage Koffi Uriarte MD Work Phone: [facility] Work Phone: 06-08-2023 tetanus toxoid, redu diego diphtheria toxoid, and acellular pertussis vaccine, adsorbed Koffi Uriarte MD Work Phone: [facility] Work Phone: 04-22-2023 influenza, injectabl e, quadrivalent, preservative free Koffi Uriarte MD Work Phone: [facility] 04-22-2023 influenza virus vaccine, unspecified formulation Nedra Calderon MD Work Phone: [facility] Work Phone: 04-21-2022 influenza, injectabl e, quadrivalent, preservative free Koffi Uriarte Work Phone: LP-VWFX-[place] Work Phone: 04-18-2021 influenza, injectabl e, quadrivalent, preservative free Koffi Uriarte Work Phone: YN-IFUX-[place]zy [place] Work Phone: 01-29-2021 Pfizer-BioNTech COVID-19 Vacc 30 MCG/0.3ML Intramuscular Suspension Koffi Uriarte Work Phone: EE-XNUZ-Ddjq [place] Work Phone: 01-08-2021 Pfizer-BioNTech COVID-19 Vacc 30 MCG/0.3ML Intramuscular Suspension Koffi Uriarte Work Phone: AA-YNBU-Eozr [place] Work Phone: 05-09-2019 Influenza, injectabl e, Madin [place] Canine Kidney, preservative free, quadrivalent Koffi A AbraResto Work Phone: [employer] Work Phone: 04-28-2018 influenza, injectabl e, quadrivalent, contains preservative Koffi A AbraResto Work Phone: [employer] Work Phone: 02-16-2018 tetanus toxoid, redu diego diphtheria toxoid, and acellular pertussis vaccine, adsorbed Koffi Alison AbraResto Work Phone: [employer] Work Phone: 05-06-2017 influenza, injectabl e, quadrivalent, preservative free Koffi Alison Abra[employer]o Work Phone: [employer] Work Phone: 01-14-2016 pneumococcal polysaccharide vaccine, 23 valent Koffi A AbraResto Work Phone: [employer] Work Phone: 11-30-2014 tuberculin skin test ; purified protein derivative solution, intradermal [facility], [place] 12-15-2013 tuberculin skin test ; purified protein derivative solution, intradermal [facility], [place] 03-02-2008 tetanus toxoid, redu diego diphtheria toxoid, and acellular pertussis vaccine, adsorbed [facility] 02-25-2007 meningococcal polysaccharide (groups A, C, Y and W-135) diphtheria toxoid conjugate vaccine (MCV4P) [facility], [place] 02-25-2007 Meningococcal, MCV4, unspecified conjugate formulation(groups A, C, Y and W-135) [facility] 03-12-1999 diphtheria, tetanus toxoids and acellular pertussis vaccine [facility] 03-12-1999 diphtheria, tetanus toxoids and acellular pertussis vaccine, unspecified formulation Koffi Uriarte Work Phone: [employer] Work Phone: 03-12-1999 haemophilus influenz ae type b vaccine, HbOC conjugate [facility] 03-12-1999 measles, mumps and rubella virus vaccine [facility] 03-12-1999 poliovirus vaccine, inactivated [facility], [place] 03-12-1999 trivalent poliovirus vaccine, live, oral [place], [place] 01-07-1995 diphtheria, tetanus toxoids and acellular pertussis vaccine [facility] 01-07-1995 diphtheria, tetanus toxoids and acellular pertussis vaccine, unspecified formulation Koffi Clementeson Work Phone: [employer] Work Phone: 10-22-1994 haemophilus influenz ae type b vaccine, conjugate unspecified formulation [place], [place] 10-22-1994 haemophilus influenz ae type b vaccine, PRP-OMP conjugate Koffi Uriarte Work Phone: [employer] Work Phone: 10-22-1994 Hib, unspecified [place] 10-22-1994 measles, mumps and rubella virus vaccine [facility] 10-22-1994 poliovirus vaccine, inactivated [facility] 06-18-1994 hepatitis B vaccine, pediatric or pediatric/adolescent dosage Koffi Uriarte Work Phone: [facility] 06-18-1994 hepatitis B vaccine, unspecified formulation [facility] , [place] 04-16-1994 diphtheria, tetanus toxoids and acellular pertussis vaccine [place] 04-16-1994 diphtheria, tetanus toxoids and pertussis vaccine [facility] 04-16-1994 haemophilus influenz ae type b vaccine, conjugate unspecified formulation [facility], [place] 04-16-1994 haemophilus influenz ae type b vaccine, HbOC conjugate Brendan Blankenship PA-C Work Phone: [facility] 04-16-1994 haemophilus influenz ae type b vaccine, PRP-OMP conjugate Koffi Uriarte Work Phone: [employer] Work Phone: 04-16-1994 Hib, unspecified [facility], [place] 04-16-1994 poliovirus vaccine, inactivated [facility] 04-16-1994 trivalent poliovirus vaccine, live, oral [facility], [place] 02-12-1994 diphtheria, tetanus toxoids and acellular pertussis vaccine [facility], [place] 02-12-1994 diphtheria, tetanus toxoids and pertussis vaccine [facility] 02-12-1994 haemophilus influenz ae type b vaccine, conjugate unspecified formulation [facility], [place] 02-12-1994 haemophilus influenz ae type b vaccine, HbOC conjugate Brendan Blankenship PA-C Work Phone: [facility] 02-12-1994 haemophilus influenz ae type b vaccine, PRP-OMP conjugate Koffi Uriarte Work Phone: [employer] Work Phone: 02-12-1994 Hib, unspecified [facility], [place] 02-12-1994 poliovirus vaccine, inactivated [facility] 02-12-1994 trivalent poliovirus vaccine, live, oral [facility], [place] 01-08-1994 hepatitis B vaccine, pediatric or pediatric/adolescent dosage Koffi Alison Uriarte Work Phone: [facility] 01-08-1994 hepatitis B vaccine, unspecified formulation [facility] , [place] 1993 diphtheria, tetanus toxoids and acellular pertussis vaccine [facility], [place] 1993 diphtheria, tetanus toxoids and pertussis vaccine [facility] 1993 haemophilus influenz ae type b vaccine, conjugate unspecified formulation [facility], [place] 1993 haemophilus influenz ae type b vaccine, HbOC conjugate Brendan Pattie PA-C Work Phone: [facility] 1993 haemophilus influenz ae type b vaccine, PRP-OMP conjugate Koffi Uriarte Work Phone: HE-DNMG-[place] Work Phone: 1993 hepatitis B vaccine, pediatric or pediatric/adolescent dosage Koffi Uriarte Work Phone: [facility] 1993 hepatitis B vaccine, unspecified formulation [place], [place] 1993 Hib, unspecified [place], [place] 1993 poliovirus vaccine, inactivated [facility] 1993 trivalent poliovirus vaccine, live, oral [facility], [place] Payers Date Payer Category Payer Private Health Insurance [employer] [id number] 2023 Self-pay 2023 Managed Care (Private) [id number] 2023 Private Health Insurance [id number] 2020 Unknown 2020 Unknown MMO MMO [employer] [id number] 2020-Present [phone] [address] [place] [address] PPO [id number] 2019 Unknown [id number] 1993 Unknown [id number]. 185 1993 Unknown [id number]. 182 1993 Unknown [id number] [id number]. 182 1993 Unknown [id number] [id number]. 593 1993 Unknown [id number] [id number]. 593 1993 Unknown [id number] [id number]. 356 1993 Unknown [id number] [id number]. 727 1993 Unknown [id number] [id number]. 727 1993 Unknown [id number] [id number]. 1244 1993 Unknown [id number] [id number]. 1244 1993 Unknown [id number] [id number]. 1259 1993 Unknown [id number] [id number]. 1259 1959 Unknown [id number] Unknown [id number] Unknown [id number]. 531 Unknown [id number] Social History Date Type Detail Facility Start: 04-18-2020 End: 04-30-2023 Tobacco smoking status NHIS Never smoker [facility] Start: 04-18-2020 End: 04-30-2023 Tobacco use and exposure Never used [facility] [employer] [facility] Start: 04-18-2020 End: 09-12-2024 Alcohol intake Current drinker of alcohol (finding) [facility] [employer] [facility] Start: 09-19-2019 History SDOH [facility] Start: 09-19-2019 History SDOH [facility] 1 [facility] Start: 09-19-2019 History SDOH [facility] Med 2 [facility] Start: 04-18-2020 Alcohol Comment [facility]igned At Not on [facility] Start: 04-20-2023 End: 09-12-2024 Exposure to SARS-CoV-2 (event) [facility] Start: 05-03-2024 End: 09-12-2024 Never smoker Never smoker NC-UYKH-[place] Work Phone: Tobacco smoking status Never [facility] Start: 05-03-2024 End: 09-12-2024 Sex Assigned At Female [facility] Start: 1995 Sex Assigned At Female F [facility] Start: 05-03-2024 Alcoholic beverage intake Ex-drinker (finding) [facility] Work Phone: How often to you hav e a drink containing alcohol? Never [facility] Work Phone: Start: 04-23-2024 End: 05-03-2024 Exposure to SARS-CoV-2 (event) Yes [facility] Start: 09-12-2024 Alcohol Comment Socially [facility] Work Phone: Tobacco smoking status NHIS Tobacco smoking consumption unknown [facility] Start: 11-27-2024 [facility] Start: 12-21-2022 Gender identity Identifies as female gender (finding) [facility] Start: 12-21-2022 Sexual orientation Heterosexual (fin ding) [facility] NEGATED: Highlighted row - - BM-VRLU-[place] Work Phone: NEGATED: Highlighted rowStart: KAMIF History of tobacco use Passive smoker [facility] Work Phone: Goals Date Patient Goal Desired Activity /State Personal health goal Functional Status Date Assessment Result Facility NEGATED: Highlighted row Functional performance Functional status health issues are not documented Disease [employer] Work Phone: Mental Status Date Assessment Result Facility NEGATED: Highlighted row Cognitive function [Interpretation] Cognitive status health issues are not documented Disease RH-TSOF-WdppUevoc Work Phone: Clinical Notes 08-09-2017 to 09-12-2024 Assessment & Plan Note - Koffi Uriarte MD - 09/12/2024 12:40 PM ESTAssessment & Plan Note - Koffi Uriarte MD - 09/12/2024 12:40 PM ESTPatient Instructions Note Date & Type Note Facility 09-12-2024 Evaluation + Plan note Associated Problem(s): Benign essential hypertension Monitor your blood pressure at home at [...] Primary Care - PCP - Established; Future [facility] Work Phone: 09-12-2024 Evaluation + Plan note Associated Problem(s): Seizure (Multi) Good control. Follow up with neuro. Continue meds [facility] Work Phone: 09-12-2024 Evaluation + Plan note Associated Problem(s): Vitamin B12 deficiency [facility] Work Phone: 09-12-2024 Evaluation + Plan note Associated Problem(s): Fatigue We talked about healthy habits and sleep hygiene Orders: CBC; Future TSH with reflex to Free T4 if abnormal; Future Vitamin B12; Future [facility] Work Phone: 09-12-2024 History of Presen t illness Narrative Subjective Princess Guerrero is a 28 y.o. 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 Here for a recheck of her blood pressure. Had a baby a year ago so was switched to labetalol. Feels tired in the day. Sleeps well unless the baby wakes her up. No problems during the . Delivered at 3 weeks due to breech. Hypertension This is a recurrent problem. The current episode started more than 1 year ago. The problem is unchanged. The problem is controlled. Associated symptoms include headaches and malaise/fatigue. Pertinent negatives include no anxiety, blurred vision, chest pain, neck pain, orthopnea, palpitations, peripheral edema, PND, shortness of breath or sweats. There are no associated agents to hypertension. Risk factors for coronary artery disease include obesity and stress. Compliance problems include exercise. Review of Systems Constitutional: Positive for malaise/fatigue. Eyes: Negative for blurred vision. Respiratory: Negative for shortness of breath. Cardiovascular: Negative for chest pain, palpitations, orthopnea and PND. Musculoskeletal: Negative for neck pain. Neurological: Positive for headaches. Objective BP (!) 122/96 Pulse 71 Temp 36.3 C (97.3 F) Ht 1.753 m (5' 9 ) Wt 83.1 kg (183 lb 4 oz) BMI 27.06 kg/m Physical Exam HENT: Head: Normocephalic and atraumatic. Mouth/Throat: Mouth: Mucous membranes are moist. Pharynx: Oropharynx is clear. Eyes: Extraocular Movements: Extraocular movements intact. Pupils: Pupils are equal, round, and reactive to light. Cardiovascular: Rate and Rhythm: Normal rate and regular rhythm. Heart sounds: Normal heart sounds. Pulmonary: Effort: Pulmonary effort is normal. Breath sounds: Normal breath sounds. Musculoskeletal: General: Normal range of motion. Cervical back: Normal range of motion. Lymphadenopathy: Cervical: No cervical adenopathy. Skin: General: Skin is warm and dry. Neurological: General: No focal deficit present. Mental Status: She is alert. Psychiatric: Mood and Affect: Mood normal. Assessment/Plan Assessment & Plan Benign essential hypertension Monitor your blood pressure at home at [...] - PCP - Established; Future Seizure (Multi) Good control. Follow up with neuro. Continue meds Vitamin B12 deficiency Fatigue, unspecified type We talked about healthy habits and sleep hygiene Orders: CBC; Future TSH with reflex to Free T4 if abnormal; Future Vitamin B12; Future Well adult health check Orders: Comprehensive Metabolic Panel; Future Lipid Panel; Future Vitamin D deficiency Orders: Vitamin D 25-Hydroxy,Total (for eval of Vitamin D levels); Future Patient Instructions Please start back on folic acid 1 mg daily or vitamins. documented in this encounter [facility] Work Phone: 09-12-2024 Instructions Koffi Uriarte MD - 09/12/2024 12:40 PM EST Please start back on folic acid 1 mg daily or vitamins. documented in this encounter [facility] Work Phone: 09-12-2024 Miscellaneous Notes Associated Problem(s): Benign essential hypertension Monitor your blood pressure at home at [...] Primary Care - PCP - Established; Future Associated Problem(s): Seizure (Multi) Good control. Follow up with neuro. Continue meds Associated Problem(s): Vitamin B12 deficiency Associated Problem(s): Fatigue We talked about healthy habits and sleep hygiene Orders: CBC; Future TSH with reflex to Free T4 if abnormal; Future Vitamin B12; Future documented in this encounter [facility] Work Phone: 05-03-2024 History of Presen t illness Narrative Images from the original note were not included. Neurological [facility] Referring: No ref. provider found PCP: Koffi Uriarte MD No chief complaint on file. Carmine Cantu is a 28 y.o. year old female presenting for visit for follow-up . She was last seen 04/30/2023. Since her last visit, she gave to a baby girl. She is not . She is on lamotrigine 100mg BID. She is not on control. We did not make any adjustments to her lamotrigine while . She has had no further seizures. She is now working for [employer] as the health department wanted to transition her to the [employer] system. Patient Active Problem List Diagnosis Anxiety Benign essential hypertension Seizure (Multi) Vitamin B12 deficiency Hypertension Objective Neurological Exam Mental Status Awake, alert and oriented to person, place and time. Speech is normal. Cranial Nerves CN II: Visual ruiz full to confrontation. CN III, IV, : Extraocular movements intact bilaterally. CN V: Facial sensation is normal. CN VII: Full and symmetric facial movement. CN VIII: Hearing is normal. CN IX, X: Palate elevates symmetrically CN XI: Shoulder shrug strength is normal. CN XII: Tongue midline without atrophy or fasciculations. Motor Strength is 5/5 throughout all four extremities. Sensory Light touch is normal in upper and lower extremities. Coordination Right: Omalov-bj-bwas normal.Left: Jupdyd-hz-iaip normal. Physical Exam Eyes: Extraocular Movements: Extraocular movements intact. Neurological: Motor: Motor strength is normal. Psychiatric: Speech: Speech normal. Assessment/Plan Diagnoses and all orders for this visit: Seizure (Multi) Seizure disorder: Two seizures 04/18/2020 and 06/04/2020. MRI showed no lesion. EEG was normal. Doing well on lamotrigine 100mg BID. Will repeat level now that she is post . Plans to have children in the future, discussed to let us know if she is again so we can follow lamotrigine levels and adjust accordingly. Ok to drive. Reviewed medications that can lower the seizure threshold. Follow-up in 1 year There are no Patient Instructions on file for this visit. documented in this encounter [facility] Work Phone: 12-16-2023 Note [phone] [id number] Patient Education Ma terials Follows: Hypertension, Adult High blood pressure (hypertension) is when the force of blood pumping through the arteries is too strong. The arteries are the blood vessels that carry blood from the heart throughout the body. Hypertension forces the heart to work harder to pump blood and may cause arteries to become narrow or stiff. Untreated or uncontrolled hypertension can lead to a heart attack, heart failure, a stroke, kidney disease, and other problems. A blood pressure reading consists of a higher number over a lower number. Ideally, your blood pressure should be below 120/80. The first ( top ) number is called the systolic pressure. It is a measure of the pressure in your arteries as your heart beats. The second ( bottom ) number is called the diastolic pressure. It is a measure of the pressure in your arteries as the heart relaxes. What are the causes? The exact cause of this condition is not known. There are some conditions that result in high blood pressure. What increases the risk? Certain factors may make you more likely to develop high blood pressure. Some of these risk factors are under your control, including: ? Smoking. ? Not getting enough exercise or physical activity. ? Being overweight. ? Having too much fat, sugar, calories, or salt (sodium) in your diet. ? Drinking too much alcohol. Other risk factors include: ? Having a personal history of heart disease, diabetes, high cholesterol, or kidney disease. ? Stress. ? Having a family history of high blood pressure and high cholesterol. ? Having obstructive sleep apnea. ? Age. The risk increases with age. What are the signs or symptoms? High blood pressure may not cause symptoms. Very high blood pressure (hypertensive crisis) may cause: ? Headache. ? Fast or irregular heartbeats (palpitations). ? Shortness of breath. ? Nosebleed. ? Nausea and vomiting. ? Vision changes. ? Severe chest pain, dizziness, and seizures. How is this diagnosed? This condition is diagnosed by measuring your blood pressure while you are seated, with your arm resting on a flat surface, your legs uncrossed, and your feet flat on the floor. The cuff of the blood pressure monitor will be placed directly against the skin of your upper arm at the level of your heart. Blood pressure should be measured at least twice using the same arm. Certain conditions can cause a difference in blood pressure between your right and left arms. If you have a high blood pressure reading during one visit or you have normal blood pressure with other risk factors, you may be asked to: ? Return on a different day to have your blood pressure checked again. ? Monitor your blood pressure at home for 1 week or longer. If you are diagnosed with hypertension, you may have other blood or imaging tests to help your health care provider understand your overall risk for other conditions. How is this treated? This condition is treated by making healthy lifestyle changes, such as eating healthy foods, exercising more, and reducing your alcohol intake. You may be referred for counseling on a healthy diet and physical activity. Your health care provider may prescribe medicine if lifestyle changes are not enough to get your blood pressure under control and if: ? Your systolic blood pressure is above 130. ? Your diastolic blood pressure is above 80. Your personal target blood pressure may vary depending on your medical conditions, your age, and other factors. Follow these instructions at home: Eating and drinking ? Eat a diet that is high in fiber and potassium, and low in sodium, added sugar, and fat. An example of this eating plan is called the DASH diet. DASH stands for Dietary Approaches to Stop Hypertension. To eat this way: ? Eat plenty of fresh fruits and vegetables. Try to fill one half of your plate at each meal with fruits and vegetables. ? Eat whole grains, such as whole-wheat pasta, brown rice, or whole-grain bread. Fill about one fourth of your plate with whole grains. ? Eat or drink low-fat dairy products, such as skim milk or low-fat yogurt. ? Avoid fatty cuts of meat, processed or cured meats, and poultry with skin. Fill about one fourth of your plate with lean proteins, such as fish, chicken without skin, beans, eggs, or tofu. ? Avoid pre-made and processed foods. These tend to be higher in sodium, added sugar, and fat. ? Reduce your daily sodium intake. Many people with hypertension should eat less than 1,500 mg of sodium a day. ? Do not drink alcohol if: ? Your health care provider tells you not to drink. ? You are , may be , or are planning to become . ? If you drink alcohol: ? Limit how much you have to: ? 0?1 drink a day for women. ? 0?2 drinks a day for men. ? Know how much alcohol is in your drink. In the [place] one drink equals one 12 oz bottle of beer (355 mL), one 5 oz glass of wine (148 mL (more content not included)... 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 Patient Active Problem List Diagnosis Abnormal weight [...] 5/5 throughout all four extremities. Coordination Right: Xosykz-bq-zlvd normal.Left: Tkyvnw-vz-brgm normal. Physical Exam Eyes: Extraocular Movements: Extraocular [...] in 1 year documented in this encounter [facility] Work Phone: 11-25-2022 Note EXAMINATION: [...] authenticated by: HAYLIE HOUSER Date: 2022-11-25 17:20 [facility] 04-16-2022 Note HNO ID: [id number] Author: Brendan Blankenship PA-C Service: ? 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 I, Brendan Blankenship, have reviewed this information as documented for accuracy and performed all elements of history taking, and edited the record as necessary. ROS: SEE HPI PE: GENERAL: well-appearing, in no acute distress LUNGS: Normal inspiratory effort ENGINEERING DRAWINGS CHECKER: Normal external genitalia, no vaginal bleeding, small [...] Decision Making Level: 3 - Low [facility] 03-24-2022 Miscellaneous Notes VM left w req for RCTO please call patient back could have been a chemical will have nurse contact once blood work reviewed home test reliable if desiring OV for concerns please schedule other OV, cancel OCT new OB thanks calling today. LMP 02/11/22. Pt took HPT / d/t period being late. Pt got 3 [...] move appt sooner. documented in this encounter [facility] 03-19-2022 Miscellaneous Notes LMP 02/11, +hpt. Assisted w initial OBV. Advised to take vitamin w folic acid. First trimester precautions provided. handbook sent in . documented in this encounter [facility] 02-03-2022 Miscellaneous Notes The following approved medication requests have been transmitted electronically. Signed Prescriptions Disp Refills metroNIDAZOLE (FLAGYL) 500 mg tablet 14 tablet 0 Sig: Take 1 tablet by mouth twice daily. for vaginosis. Do not drink alcohol while taking this medication MICHELLE: No Brendan Souza APRN.CONTRACTS PARALEGAL Pt reporting vag discharge/odor- same symptoms as past +BV dx. Last annual 06/2021. Req for BV medications Pending Prescriptions Disp Refills METRONIDAZOLE 500 MG TABLET 14 tablet 0 Sig: Take 1 tablet by mouth twice daily. for vaginosis. Do not drink alcohol while taking this medication MICHELLE: No documented in this encounter [facility] 09-09-2021 Note HNO ID: [id number] Author: Brendan Blankenship PA-C Service: ? 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 Portions of this record were documented by the Traveling Operator. I, Brendan Blankenship, have reviewed this information as documented for accuracy and performed all elements of history taking, and edited the record as necessary. ROS: SEE HPI PE: GENERAL: well-appearing, in no acute distress LUNGS: Normal inspiratory effort ENGINEERING DRAWINGS CHECKER: Small amount yellow mucus discharge, cervix NL. [...] Decision Making Level: 3 - Low [facility] 07-04-2021 Note HNO ID: [id number] Author: 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 APRN.CONTR[employer] PARALEGAL Service: ? Author Type: Nurse Practitioner Type: [...] Ectopic0 Multiple0 Live Births0 Comment: Menarche 10 Tool Lapper Hand History LMP: 06/07/2021 (Exact Date), Having periods Age at Menarche: Age at First : Age at Menopause: Tool L[employer] History Comments: Sexual Activity: Yes; Male; same [...] external genitalia normal, normal Bartholin's glands, urethra, Donahue's glands, no vulvar lesions, no cervical lesions, [...] a gentle, NON-perfumed dye-FREE soap (ie, Vanicream, Юлия/Denise, ), same perfume/dye free type of detergents for washing undergarments, wiping gqafx-lu-akxz, sleep in loose shorts without underwear, shower immediately after intercourse/exercise, make sure perineum is gently blotted dry before dressing. Avoid scratching, scented pads/tampons/toilet papers, cranberry juice, bubble baths, and intercourse until symptoms are relieved. NO douching. If you shave, use a new razor at least twice monthly. 5) Follow up one year or sooner as needed 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 APRN.CONTRACTS PARALEGAL [facility] 08-09-2017 History of Past i llness Narrative Problem Noted Date Resolved Date NO SHOW 08/09/2017 08/09/2017 documented as of this encounter (statuses as of 02/03/2022) [facility] History of Past illness Narrative* Problem Noted Date Resolved Date NO SHOW 08/09/2017 08/09/2017 documented as of this encounter (statuses as of 03/19/2022) [facility] History of Past illness Narrative* Problem Noted Date Resolved Date NO SHOW 08/09/2017 08/09/2017 documented as of this encounter (statuses as of 03/24/2022) [facility] No data available for this section [facility] Diagnosis Acute vaginitis- Primary Vaginitis and vulvovaginitis, unspecified documented in this encounter [facility] note* Diagnosis Bleeding in early - Primary Unspecified hemorrhage in early , unspecified as to episode of care documented in this encounter [facility] note* Diagnosis Seizure (CMS/HCC)- Primary Other convulsions documented in this encounter [facility] Work Phone: Evaluation noteNo assessment information available [facility] Work Phone: Evaluation note* Diagnosis Seizure (Multi)- Primary Other convulsions documented in this encounter [facility] Work Phone: Evaluation note* Diagnosis Benign essential hypertension- Primary Essential hypertension, benign Seizure (Multi) Other convulsions Vitamin B12 deficiency Other B-complex deficiencies Fatigue, unspecified type Well adult health check Unspecified general medical examination Vitamin D deficiency documented in this encounter [facility] Work Phone: History of Present illness Narrative* The patient states she has been doing well with her blood pressure control since the last visit. She has no comorbid illnesses. She has no significant interval events. * Symptoms: The patient is currently asymptomatic. * Less anxiety lately. Broke up with her boyfriend. * Working in [employer] at the [employer]. * BP is much improved on lisinopril. * Saw gyne for discharge. * was told she had BV and chlamydia. * took antibiotics, got better for a few weeks and now she is having discharge again and odor. no pelvic pain. [facility] Work Phone: History of Present illness Narrative* The patient states she has been doing well with her blood pressure control since the last visit. She has no comorbid illnesses. She has no significant interval events. * Symptoms: The patient is currently asymptomatic. * Less anxiety lately. Broke up with her boyfriend. * Working in [employer] at the [employer]. * BP is much improved on lisinopril. * Saw gyne for discharge. * was told she had BV and chlamydia. * took antibiotics, got better for a few weeks and now she is having discharge again and odor. no pelvic pain. [facility] Work Phone: Hospital Discharge instructions No data available for this section [facility] No data available for this section [facility] Summary Purpose Family History Mother Name Dates [...] Documents on File Type Date Recorded Patient Resource Program Teacher Expl anation ACP-Advance Directive ACP-Power of Pole Sander Operator Documents on File Type Date Recorded Patient Resource Program Teacher Expl anation ACP-Advance Directive ACP-Power of Pole Sander Operator Documents on File Type Date Recorded Patient Resource Program Teacher Expl anation Advance Directive(s) 11/30/2015 2:19 PM Advance Directive Response Recorded Date/ Time Advance Directives No November 08, 2 024 3:18pm Reason for Referral Status Reason Specialty Diagnoses / Procedures Referre d By Contact Referred To Contact Open Radiology Diagnoses Nonintractable generalized idiopathic epilepsy without status epilepticus (HCC) Procedures MRI BRAIN W WO CONTRAST Spike Garcia MD [address] [place] [address] Assessments Diagnosis Nonintractable generalized idiopathic epilepsy without status epilepticus (HCC) Diagnosis Seizure (HCC) Other convulsions Discharge Instructions * Attachments The following attachments cannot be sent through Care Everywhere. * Seizure (Lao) documented in this encounter Chief Complaint and Reason for Visit Chief Complaint Nausea, diarrhea Additional Source Comments INFORMATION SOURCE (unrecogn ized section and content) DATE CREATED AUTHOR 01/11/2018 [facility] DATE CREATED AUTHOR AUTHOR'S ORGANIZ ATION 04/19/2020 [facility] DATE CREATED AUTHOR AUTHOR'S ORGANIZ ATION 05/11/2020 [facility] DATE CREATED AUTHOR AUTHOR'S ORGANIZ ATION 12/29/2020 [facility] DATE CREATED AUTHOR AUTHOR'S ORGANIZ ATION 04/20/2022 [facility] DATE CREATED AUTHOR AUTHOR'S ORGANIZ ATION 08/11/2022 [facility] DATE CREATED AUTHOR AUTHOR'S ORGANIZ ATION 11/29/2022 [facility] DATE CREATED AUTHOR AUTHOR'S ORGANIZ ATION 12/27/2022 [facility] Center DATE CREATED AUTHOR AUTHOR'S ORGANIZ ATION 09/07/2023 [facility] DATE CREATED AUTHOR AUTHOR'S ORGANIZ ATION 12/16/2023 [facility] DATE CREATED AUTHOR AUTHOR'S ORGANIZ ATION 04/01/2024 [facility] DATE CREATED AUTHOR AUTHOR'S ORGANIZ ATION 04/02/2024 [facility] DATE CREATED AUTHOR AUTHOR'S ORGANIZ ATION 07/14/2024 [facility] DATE CREATED AUTHOR AUTHOR'S ORGANIZ ATION 09/15/2024 [facility] DATE CREATED AUTHOR AUTHOR'S ORGANIZ ATION 09/16/2024 [facility] DATE CREATED AUTHOR AUTHOR'S ORGANIZ ATION 01/14/2025 [facility] EPIC Reason for Visit (unrecogniz ed section and content) Status Reason Specialty Diagnoses / Procedures Referre d By Contact Referred To Contact Closed EEG Diagnoses Generalized idiopathic epilepsy and epileptic syndromes, not intractable, without status epilepticus Procedures HC EEG 16+ CHANNEL TELEMTERY 24HR Spike Garcia MD [address] [facility] [address] [place] [address] [facility] [address] [place] [address] Status Reason Specialty Diagnoses / Procedures Referre d By Contact Referred To Contact Closed Radiology Diagnoses Generalized idiopathic epilepsy and epileptic syndromes, not intractable, without status epilepticus Procedures HC MRI-BRAIN WO & W CONTRAST Spike Garcia MD [address] [facility] [address] [place] [address] [facility] [address] [place] [address] Reason Comments Seizures Seizure like activit y Reason Comments Appointment Reason Comments Bleeding With Reason Comments Seizures Medication udates Reason Comments Seizures Reason Comments Follow-up 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 Source Comments (unrecognize d section and content) In the event this informatio n is protected by the Federal Confidentiality of Alcohol and Drug Abuse Patient Records regulations: The Federal rules restrict any use of the information to criminally investigate or prosecute any alcohol or drug abuse patient.[facility] the event this information is protected by the Federal Confidentiality of Alcohol and Drug Abuse Patient Records regulations: The Federal rules restrict any use of the information to criminally investigate or prosecute any alcohol or drug abuse patient.[facility] the event this information is protected by the Federal Confidentiality of Alcohol and Drug Abuse Patient Records regulations: The Federal rules restrict any use of the information to criminally investigate or prosecute any alcohol or drug abuse patient.[facility] Care Teams (unrecognized sec tion and content) Finisher Machine Relationship Specialty Start Date End Date Koffi Uriarte MD PCP - General Family Practice 08/17/16 Finisher Machine Relationship Specialty Start Date End Date Koffi Uriarte MD PCP - General Family Practice 08/17/16 Finisher Machine Relationship Specialty Start [place] [address] [place] [address] PCP - General 08/14/20 [place] [address] [place] [address] PCP - MMO ACO PCP 02/16/23 Team Status: Active Member Role Status Dates Norma Houser APRN Primary Care Provider Active Team Status: Inactive Member Role Status Dates Yusra Whitehead APRN Attending Provider Active Start: November 09, 2023 End: November 09, 2023 Norma Houser APRN Primary Care Provider Active Start: November 09, 2023 End: November 09, 2023 Finisher Machine Relationship Specialty Start [place] [address] [address] PCP - General 08/14/20 Finisher Machine Relationship Specialty Start [place] [address] [address] [address] PCP - General 08/14/20 Finisher Machine Relationship Specialty Start [place] [address] [address] [address] PCP - General Family Medicine 01/14/23 Goals (unrecognized section and content) Goals may [...] BE BASED ON THE PRIMARY CLINICAL RECORDS. [employer] [facility]. provides no warranty or guarantee of the accuracy or completeness of information in this document.
[2025-01-30 20:17] VITALS: BP 126/84
== END 2025-01-30 21:18 | disposition home or self-care (01) ==
PROVIDERS: Emergency Provider Emergency Medicine; PCP Family Medicine
DX: O20.9 Hemorrhage in early pregnancy, unspecified (principal); Z3A.11 11 weeks gestation of pregnancy
CPT/HCPCS: 76817; 99284

== ENCOUNTER 2025-03-07 19:41 | Outpatient (REF) | payer OTHER, SELFPAY ==
[2025-03-11 16:10] LABS: Age Gdln ACOG Testing Note (.); IGP, Aptima HPV, rfx 16/18,45 Note (.)
== END 2025-03-07 19:42 | disposition home or self-care (01) ==
LOC: LAB 19:41
PROVIDERS: PCP Family Medicine; Visit Provider Physician Assistant
DX: Z01.419 Encounter for gynecological examination (general) (routine) without abnormal findings (principal)
CPT/HCPCS: 87624; 88175

== ENCOUNTER 2025-04-03 18:38 | Outpatient (OUT) | payer OTHER, SELFPAY ==
--- NOTE | 2025-04-03 18:41 | US_ITS ---
The [address] [address] Patient Name: PRINCESS HUNTER MRN: [id number] date: 1995 Sex: F Assigned Patient Location: Current Patient Location: Accession/Order Number: [id number] Exam Date: 04/03/2025 18:53 Report Date: 04/04/2025 09:12 At the request of: LISA ZIMMERMAN DO Procedure: US OB anatomy CLINICAL DATA: Screening anatomy survey ULTRASOUND OB ANATOMY COMPARISON: 01/30/2025 There is a single live intrauterine gestation in variable presentation. There is cardiac and somatic activity with heart rate of 153 beats per minutes. The amniotic fluid volume is subjectively normal. The placenta is posterior and fundal and unremarkable in appearance. The neural axis and all 4 extremities were surveyed by the business education teacher and no abnormalities were reported. The stomach, bladder, kidneys, three-vessel cord with insertion, 4 chamber heart with right and left ventricular outflow tracts, diaphragm, facial features and female gender are seen. The following measurements were obtained: Biparietal diameter 4.7 cm 20 weeks 1 day 53% Head circumference 17.5 cm 20 weeks 0 days 38% Abdominal circumference 15.3 cm 20 weeks 4 days 57% Femur length 3.1 cm 19 weeks 5 days 27% The composite ultrasound age based on these measurements is 20 weeks 1 day +/- 1 week 3 days. This correlates with dates based on the prior. US/US OB anatomy IMPRESSION: SINGLE LIVE INTRAUTERINE GESTATION WITH ULTRASOUND AGE OF 20 WEEKS 1 DAY. UNREMARKABLE ANATOMY SURVEY. ULTRASOUND OB CERVICAL LENGTH COMPARISON: 01/30/2025 The cervix was evaluated with a transvaginal probe. The cervix is closed and the estimated length is 4.2 cm. The end of the placenta is approximately 5.6 cm from the internal cervical os. IMPRESSION: NORMAL CLOSED CERVIX. Impression dictated by: Cyndi Pisano M.D. 04/04/2025 9:12 AM Dictation Location: [facility] Electronically authenticated by: [id number] Y Date: 04/04/2025 09:12
--- NOTE | 2025-04-03 18:41 | US_ITS ---
The [address] [address] Patient Name: PRINCESS HUNTER MRN: [id number] date: 1995 Sex: F Assigned Patient Location: Current Patient Location: Accession/Order Number: [id number] Exam Date: 04/03/2025 18:53 Report Date: 04/04/2025 09:12 At the request of: LISA ZIMMERMAN DO Procedure: US OB anatomy CLINICAL DATA: Screening anatomy survey ULTRASOUND OB ANATOMY COMPARISON: 01/30/2025 There is a single live intrauterine gestation in variable presentation. There is cardiac and somatic activity with heart rate of 153 beats per minutes. The amniotic fluid volume is subjectively normal. The placenta is posterior and fundal and unremarkable in appearance. The neural axis and all 4 extremities were surveyed by the general assignment reporter and no abnormalities were reported. The stomach, bladder, kidneys, three-vessel cord with insertion, 4 chamber heart with right and left ventricular outflow tracts, diaphragm, facial features and female gender are seen. The following measurements were obtained: Biparietal diameter 4.7 cm 20 weeks 1 day 53% Head circumference 17.5 cm 20 weeks 0 days 38% Abdominal circumference 15.3 cm 20 weeks 4 days 57% Femur length 3.1 cm 19 weeks 5 days 27% The composite ultrasound age based on these measurements is 20 weeks 1 day +/- 1 week 3 days. This correlates with dates based on the prior. US/US OB cervical length IMPRESSION: SINGLE LIVE INTRAUTERINE GESTATION WITH ULTRASOUND AGE OF 20 WEEKS 1 DAY. UNREMARKABLE ANATOMY SURVEY. ULTRASOUND OB CERVICAL LENGTH COMPARISON: 01/30/2025 The cervix was evaluated with a transvaginal probe. The cervix is closed and the estimated length is 4.2 cm. The end of the placenta is approximately 5.6 cm from the internal cervical os. IMPRESSION: NORMAL CLOSED CERVIX. Impression dictated by: Cyndi Pisano M.D. 04/04/2025 9:12 AM Dictation Location: [facility] Electronically authenticated by: [id number] Y Date: 04/04/2025 09:12
--- OUTSIDE RECORDS SUMMARY | 2025-04-03 18:44 | XMS_ITS | CCD ---
Author Organization [facility] Care Team Providers Care Cvicu Rn Name Role Phone Uriarte, Koffi A Unavailable [...] Primary Care Provider Uriarte, Koffi A Unavailable [phone] Unavailable Unavailable Unavailable Unavailable Unavailable Unavailable Koffi [...] Care Unavailabl e BRENDAN BLANKENSHIP Attending Unavailable KOFFI URIARTE Primary Care Unavailabl e Unavailable Unavailable APRIL ., DR GONZALEZ Admitting Unavailable APRIL ., DR GONZALEZ Attending Unavailable APRIL ., DR GONZALEZ Consulting Unavailable APRIL ., DR GONZALEZ Admitting Unavailable APRIL ., DR GONZALEZ Attending Unavailable AUBURN, DR HAYLIE Garcia Consulting Unavailable APIRL ., DR GONZALEZ Consulting Unavailable Chapito, Dr. Koffi Rosas Primary Care Dario Uriarte, Dr. Koffi Rosas Attending Dario Uriarte, Dr. Koffi Rosas Referring Koffi Oquendo MD Primary Care Provider Koffi Uriarte MD Unavailable Willis Chen Attending Unavailable Willis Chen Admitting Unavailable Provider, None Primary Care Unavailable TARAS FAUSTIN Admitting Unavailable TARAS FAUSTIN Attending Unavailable Vernon PABLO Attending Unavailable MILAGRO HUGHES Primary Care Unavailable Spenser COLLINS Attending Unavailable MILAGRO HUGHES Primary Care Unavailable Koffi Uriarte MD Primary Care Provider Koffi Uriarte MD Primary Care Provider [phone] ROULA GRULLON Attending Unavailable WILLIS CHEN Attending Unavailable WILLIS CHEN Referring Unavailable ROULA GRULLON Attending Unavailable NEDRA CALDERON Attending Unavailable KOFFI URIARTE Primary Care UnavailKOFFI Aguilera Attending UnavailKOFFI Aguilera Primary Care Unavailabl e Allergies Allergy Classification Reported Allergen(s) Allergy Type Date of Onset Reaction(s) Facility (2 sources) No Known Medication Allergies; Translations: [No Known Medication Allergies] Propensity to adverse reactions (disorder) [facility] Repository Medications Current Medications Medication Drug Class(es) Dates Sig (Normalized) Sig (Original) docusate sodium 50 mg oral capsule (10 sources) take 1 capsule by mouth in the morning docusate sodium (Colace) 50 MG capsule Take 50 mg by mouth in the morning and 50 mg before bedtime. Active {21 (Ethinyl Estradiol 0.02 MG / Levonorgestrel [...] Active labetalol hydrochloride 300 mg oral tablet (17 sources) beta-Adrenergic Francoise Start: 09-12-2024 End: 03-11-2025 [...] tablet by jolie th twice daily lamoTRIgine (LaMICtal) 100 mg tablet Indications: Unspecified convulsions (Multi) TAKE 1 TABLET BY MOUTH TWICE A DAY 60 tablet 11 01/03/2024 Active lamoTRIgine (NGUYEN ICTAL) 25 mg tablet [...] [facility] #[id number] Start Date: 06/05/19 Status: Ordered MV-Min-Fe Fum-FA-DHA ( 1 PO) (13 sources) MV-Min- Fe Fum-FA-DHA ( 1 PO) Take by mouth Active promethazine hydrochloride 12.5 mg oral tablet (10 sources) Phenothiazine Start: 02-03-20 take 2 tablets by mouth every six hours as needed for nausea and nausea, then take 1 tablet by mouth every six hours as needed for nausea and nausea promethazine (Phenergan) 12.5 MG tablet Indications: Nausea and vomiting, unspecified vomiting type Take 2 tablets (25 mg) by mouth every 6 (six) hours if needed for nausea or vomiting for up to 30 doses Take 1 tablet by mouth every 6 hours as needed for nausea. 30 tablet 1 02/02/2025 Active Start: 02-01-2025 take 2 tablets by mo [facility] every six hours as needed for nausea and nausea, then take 1 tablet by mouth every six hours as needed for nausea and nausea promethazine (Phenergan) 12.5 MG tablet Indications: Nausea and vomiting, unspecified vomiting type Take 2 tablets (25 mg) by mouth every 6 (six) hours if needed for nausea or vomiting for up to 30 doses Take 1 tablet by mouth every 6 hours as needed for nausea. 30 tablet 2 02/01/2025 Active Start: 02-01-2025 take 2 tablets by mo uth every six hours as needed for nausea and nausea, then take 1 tablet by mouth every six hours as needed for nausea and nausea promethazine (Phenergan) 12.5 MG tablet Indications: Nausea and vomiting, unspecified vomiting type Take 2 tablets (25 mg) by mouth every 6 (six) hours if needed for nausea or vomiting for up to 30 doses Take 1 tablet by mouth every 6 hours as needed for nausea. 30 tablet 2 02/01/2025 Active sodium chloride flush 0.9 % injection [...] Bedtime Quantity: 30 Refills: 3 Ordered: 25-Apr-2020 Lupe ARTEAGA Doe Start : 25-Apr-2020 Active Patient requesting compounded [...] Vaginal, BID, 70 gram, Refill(s) 0, [facility] #[id number] Start Date: 06/09/19 Stop Date: 06/14/19 Status: Ordered Comment on above: Take 1 tablet by jolie twice daily. for vaginosis. Do not drink alcohol while taking this medication ondansetron 4 mg disintegrating oral tablet (11 sources) Serotonin-3 Receptor Antagonist Start: 01-13-20 End: 02-12-20 take 1 tablet by mouth every six hours for nausea ondansetron ODT (Zofran-ODT) 4 MG disintegrating tablet Indications: Nausea and vomiting in ([facility]) Take 1 tablet (4 mg) by mouth every 6 (six) hours if needed for nausea or vomiting 30 tablet 2 01/12/2025 02/11/2025 Start: 11-09-2023 take 4 mg by mouth [...] nausea. 02/10/2023 05/03/2024 Discontinued (Med List Cleanup) Orsythia 0.1-20 MG-MCG Oral Tablet (3 sources) [...] Episodic Immunizations and screening for infectious disease (4 sources) Encounter for screening for infections with a predominantly sexual mode of transmission; Translations: [Exposure to sexually transmissible disorder] Onset: 07-04-2021 03-07-2025 Episodic Menstrual disorders (3 sources) Missed period; Translations: [Irregular menstruation, unspecified] 01-04-2025 Chronic Nausea and vomiting (2 sources) Nausea and vomiting; Translations: [Nausea with vomiting, unspecified] 02-01-2025 Episodic Nutritional deficiencies (3 sources) Vitamin D deficiency; Translations: [Vitamin D deficiency, unspecified] Onset: 09-12-2024 09-12-2024 Chronic Other complications of (1 source) Vomiting of , unspecified; Translations: [Unspecified vomiting of , unspecified as to episode of care or not applicable] 01-12-2025 Episodic Other female genital disorders (18 sources) Vaginal discharge; Translations: [Leukorrhea, not specified as infective] Onset: 10-02-2022 Resolved: 05-03-2024 10-02-2022 Episodic Other nutritional; endocrine; and metabolic disorders (3 sources) Obese class I; Translations: [Obesity, unspecified] Onset: 07-04-2021 07-04-2021 Chronic Other and delivery including normal (8 sources) ; Translations: [Encounter for supervision of normal , unspecified, unspecified trimester] 01-12-2025 Episodic Other screening for suspected conditions (not mental disorders or infectious disease) (2 sources) Patient encounter status; Translations: [Encounter for other specified screening] 03-07-2025 Episodic Other upper respiratory infections (20 sources) Chronic sinusitis; Translations: [Chronic pansinusitis] Onset: 10-02-2022 Resolved: 05-03-2024 10-02-2022 Chronic Otitis media and related conditions (5 sources) Chronic otitis media; Translations: [Bilateral chronic otitis media] Chronic Polyhydramnios and other problems of amniotic cavity (2 sources) Subchorionic hematoma; Translations: [Other specified disorders of amniotic fluid and membranes, second trimester, not applicable or unspecified] 02-07-2025 Episodic Residual codes; unclassified (2 sources) Gestation period, 11 weeks; Translations: [11 weeks gestation of ] 02-01-2025 Episodic Residual codes; unclassified (2 sources) Gestation period, 12 weeks; Translations: [12 weeks gestation of ] 02-07-2025 Episodic Residual codes; unclassified (2 sources) Gestation period, 16 weeks; Translations: [16 weeks gestation of ] 03-07-2025 Episodic Unclassified (1 source) Unknown / UNK(Unknown) Onset: 05-04-2017 Unclassified (3 sources) APPOINTMENT CANCELLED Onset: 08-09-2017 08-09-2017 Unclassified (13 sources) OB Reminders Onset: 01-14-2023 01-14-2023 Past or [...] vulvovaginitis, unspecified] Onset: 07-04-2021 Resolved: 05-03-2024 Episodic Malaise and fatigue (4 sources) Fatigue; Translations: [Other fatigue] Onset: 09-12-2024 09-12-2024 Episodic Malposition; malpresentation (13 sources) Breech presentation; Translations: [Maternal care for breech presentation, not applicable or unspecified] Onset: 07-29-2023 07-29-2023 Episodic Nonspecific chest pain (20 sources) Chest pain; Translations: [Chest pain, unspecified] Onset: 10-02-2022 Resolved: 05-03-2024 10-02-2022 Episodic Nutritional deficiencies (20 sources) Cobalamin [...] Onset: 10-02-2022 Resolved: 05-03-2024 10-02-2022 Chronic Other nutritional; endocrine; and metabolic disorders (9 [...] 05-03-2024 10-02-2022 Episodic Unclassified (1 source) R07.9 73512/8 Onset: 05-04-2017 Unclassified (5 sources) Patient encounter status; Translations: [Encounter for audiology evaluation] Unclassified (2 sources) Onset: 05-03-2024 05-03-2024 NEGATED: Highlighted row has not occurred!Residual codes; unclassified (17 sources) Disease Episodic Results Test Name Value Interpretation Reference Range Facility US OB LIMITED 1+ FETUSESon 0 03-14-2025 US OB LIMITED 1+ FETUSES FINDINGS: Cephalic presentation. Posterior placenta. heart rate 156. No evidence of significant amniotic band or subchronic hemorrhage. IMPRESSION: Normal viable fetus, no gestational sac abnormality TRANSCRIBED BY: ELECTRONICALLY SIGNED BY: Michael Eid MD Normal Not Available IGP,APTIMA HPV,AGE GDLNon AGE GDLN ACOG TESTING Note . [facility] Comment on above: TESTS RESULT FLAG UN ITS REF RANGE LAB Clinician Provided Cytology Information Source.............Endocervix No. of containers..01 ThinPrep Vial Age Algo ACOG Jessica... FLAG LEGEND: L-Low Normal,H-High Normal,LL-Alert Low,HH-Alert High <-Panic Low,>-Panic High,A-Abnormal,AA-Critical Abnormal Performed at: 01 =G [address] [place] [address] Karena Lestre MD, HPV APTIMA Negative Negative [facility] Comment on above: This nucleic acid am plification test detects fourteen high- risk HPV types (16,18,31,33,35,39,45,51,52,56,58,59,66,68) without differentiation. Performed at: =[address] [id number] Community Dietitian: Karena Lester MD, Phone: [phone] Performed at: [address] [id number] Community Dietitian: Karena Lester MD, Phone: [phone] IGP, APTIMA HPV, RFX 16/18,45 Note . [facility] Comment on above: TESTS RESULT FLAG UN ITS REF RANGE LAB DIAGNOSIS: 02 NEGATIVE FOR INTRAEPITHELIAL LESION OR MALIGNANCY. Specimen adequacy: 02 Satisfactory for evaluation. No endocervical component is identified. Performed by: 02 [facility] [facility] ([facility]) . 02 Note: Note 02 The Pap smear is a screening test designed to aid in the detection of premalignant and malignant conditions of the uterine cervix. It is not a diagnostic procedure and should not be used as the sole means of detecting cervical cancer. Both false-positive and false-negative reports do occur. Test Methodology: Note 02 This liquid based ThinPrep(R) pap test was screened with the use of an image guided system. HPV Genotype Reflex Note 02 Criteria not met, HPV Genotype not performed. FLAG LEGEND: L-Low Normal,H-High Normal,LL-Alert Low,HH-Alert High <-Panic Low,>-Panic High,A-Abnormal,AA-Critical Abnormal Performed at: 02 [facility] [address] [address] Karena Lester MD, SPATULA-ALONE ENDOCERVIX [facility] RECURRENT VAGINITIS (HTRX)on 03-09-2025 ATOPOBIUM VAGINAE 0 [facility] ATOPOBIUM VAGINAE Not detected [facility] BVAB 2,3 (BACTERIAL VAGINOSIS ASSOCIATED BACTERIA 2, 3); MOBILUNCUS SPP 0 [facility] BVAB 2,3 (BACTERIAL VAGINOSIS ASSOCIATED BACTERIA 2, 3); MOBILUNCUS SPP Not detected [facility] MITCH ALBICANS, PARAPSILOSIS, TROPICALIS 0 [facility] MITCH ALBICANS, PARAPSILOSIS, TROPICALIS Not detected [facility] MITCH GLABRATA 0 [facility] MITCH GLABRATA Not detected [facility] MITCH KRUSEI 0 [facility] MITCH KRUSEI Not detected [facility] CHLAMYDIA TRACHOMATIS 0 [facility] CHLAMYDIA TRACHOMATIS Not detected N [facility] GARDNERELLA VAGINALIS 0 [facility] GARDNERELLA VAGINALIS Not detected N [facility] MEGASPHAERA (TYPES 1, 2) 0 [facility] MEGASPHAERA (TYPES 1, 2) Not detected [facility] MYCOPLASMA GENITALIUM 0 [facility] MYCOPLASMA GENITALIUM Not detected N [facility] NEISSERIA GONORRHOEAE 0 [facility] NEISSERIA GONORRHOEAE Not detected N [facility] TRICHOMONAS VAGINALIS 0 [facility] TRICHOMONAS VAGINALIS Not detected N [facility] Urinalysis macro (dipstick) panel (U)on 03-07-2025 Bilirubin, UA Negative Negative - 4(70) +++ mg/dL [facility] Blood, UA Positive Negative - 50 Jae/mcL [facility] Clarity, UA Clear [facility] Color, UA Yellow [facility] Glucose, UA Negative Negative - 2000(110) ++++ mg/dL [facility] Interpretation and review of laboratory results Abnormal [facility] Ketones, UA Negative Negative - 160(16) ++++ mg/dL [facility] Leukocytes, UA Negative Negative - 500+++ Marsha/mcL [facility] Nitrite, UA Negative Negative - Positive [facility] pH, UA 6 5 - 9 [facility] Protein, UA Negative Negative - 2000(20) ++++ mg/dL [facility] Spec Grav, UA 1.02 1 - 1.03 [facility] Urobilinogen, UA 1.0 0.2 - 12 mg/dL [facility] US OB < 14 WEEKS EARLYon US OB < 14 WEEKS EARLY FINDINGS: Single viable intrauterine , cardiac activity 145 bpm. Normal cardiac activity. No significant subchorionic fluid collection. Thin septation neighboring the cord, questionable significance, possible developing band. IMPRESSION: Viable intrauterine no abnormal subchorionic fluid collection. Given the additional findings within the gestational sac, follow up imaging may be of assistance. TRANSCRIBED BY: ELECTRONICALLY SIGNED BY: Michael Eid MD Normal Not Available Comment on above: Order Comment: US OB < 14 Weeks (Abdominal ONLY) Patient's last menstrual period was 11/13/2024. Urinalysis macro (dipstick) panel (U)on 02-07-2025 Bilirubin, UA Negative Negative - 4(70) +++ mg/dL [facility] Blood, UA Negative Negative - 50 Jae/mcL [facility] Clarity, UA Clear [facility] Color, UA Yellow [facility] Glucose, UA Negative Negative - 2000(110) ++++ mg/dL [facility] Interpretation and review of laboratory results Normal [facility] Ketones, UA Positive Negative - 160(16) ++++ mg/dL [facility] Leukocytes, UA Negative Negative - 500+++ Marsha/mcL [facility] Nitrite, UA Negative Negative - Positive [facility] pH, UA 5 5 - 9 [facility] Protein, UA Trace Negative - 2000(20) ++++ mg/dL [facility] Spec Grav, UA 1.03 1 - 1.03 [facility] Urobilinogen, UA 1.0 0.2 - 12 mg/dL [facility] BOX TESTon 01-22-2025 BOX TEST SENT OUT YES [facility] BOX1 UNITY [facility] BOX2 01/22/25 [facility] US Pelvis transvaginalon EXAM: US OB TRANSVAGINAL HISTORY: Dating. COMPARISON: [...] II, MD, PHD at 14-Jan-2025 10:04:37 PM [employer] [facility] Rosenda Torres MD - 01/14/2025 EXAM: US [...] II, MD, PHD at 14-Jan-2025 10:04:37 PM [facility] US Pelvis transvaginalOrdere d By: Rosenda Torres on 01-14-2025 [facility] Work Phone: HCG ( test) Ql (U)o n 01-12-2025 Interpretation and review of laboratory results Abnormal [facility] Preg Test, Ur Positive Negative [facility] US OB TRANSVAGINALon 025 US OB TRANSVAGINAL EXAM: US OB [...] II, MD, PHD at 14-Jan-2025 10:04:37 PM [facility] Normal Not Available Comment on above: Order Comment: US OB TRANSVAGINAL No LMP recorded. US Pelvis transvaginalon Radiology Study observation (narrative) [facility] Urinalysis macro (dipstick) panel (U)on 01-12-2025 Bilirubin, UA Negative Negative - 4(70) +++ mg/dL [facility] Blood, UA Negative Negative - 50 Jae/mcL [facility] Clarity, UA Clear [facility] Color, UA Yellow [facility] Glucose, UA Negative Negative - 2000(110) ++++ mg/dL [facility] Interpretation and review of laboratory results Abnormal [facility] Ketones, UA Negative Negative - 160(16) ++++ mg/dL [facility] Leukocytes, UA Trace Negative - 500+++ Marsha/mcL [facility] Nitrite, UA Negative Negative - Positive [facility] pH, UA 7 5 - 9 [facility] Protein, UA Negative Negative - 2000(20) ++++ mg/dL [facility] Spec Grav, UA 1.02 1 - 1.03 [facility] Urobilinogen, UA 0.2 0.2 - 12 mg/dL [facility] 25-hydroxyvitamin D3 [Mass/V ol]on 09-13-2024 25-hydroxyvitamin D [Mass/Vol] 26 ng/mL Low 30 - 100 ng/mL [facility] Comment on above: Vitamin D Status 25- OH Vitamin D: Deficiency: <20 ng/mL Insufficiency: 20 - 29 ng/mL Optimal: > or = 30 ng/mL For 25-OH Vitamin D testing on patients on D2-supplementation and patients for whom quantitation of D2 and D3 fractions is required, the QuestAssureD(TM) 25-OH VIT D, (D2,D3), LC/MS/MS is recommended: order code 54725 (patients >2yrs). See Note 1 Note 1 For additional information, please refer to http://education.[employer]/faq/UYK890 (This link is being provided for informational/ educational purposes only.) Interpretation and review of laboratory results Abnormal [facility] CBC (H/H, RBC, INDICES, WBC, PLT)on 09-13-2024 Erythrocyte distribution width (RBC) [Ratio] 12.3 % Normal 11.0-15.0 [facility] Comment on above: Performed By: #### 7 260, 61804, 03024, 571, 7184, 05731 #### [facility] [address], [address] [place] [id number] Melting Supervisor: Brandon Camara MD Hematocrit (Bld) [Volume fraction] 38.8 % Normal 35.0-45.0 [facility] Comment on above: Performed By: #### 7 600, 82261, 43524, 927, 175, #### [facility] [place] [address] [place] Supervisor: Brandon Camara MD Hemoglobin (Bld) [Mass/Vol] 12.7 g/dL Normal 11.7-15.5 [facility] Comment on above: Performed By: #### 7 600, 78659, 53765, 927, 175, #### [facility] [place] [address] [place] Supervisor: Brandon Camara MD MCH (RBC) [Entitic mass] 28.4 pg Normal 27.0-33.0 [facility] Comment on above: Performed By: #### 7 600, 11982, 60286, 927, 175, #### [facility] [place] [address] [place] Supervisor: Brandon Camara MD MCHC (RBC) [Mass/Vol] 32.7 g/dL Normal 32.0-36.[address] [facility] Comment on above: Result Comment: For adults, a slight decrease in the calculated MCHC value (in the range of 30 to 32 g/dL) is most likely not clinically significant; however, it should be interpreted with caution in correlation with other red cell parameters and the patient's clinical condition. Performed By: #### 7 600, 90708, 56027, 92, 175, #### [facility] [place] [address] [place] Supervisor: Brandon Camara MD MCV (RBC) [Entitic vol] 86.8 fL Normal 80.0-100.0 [facility] Comment on above: Performed By: #### 7 600, 81353, 54546, 927, 175, #### [facility] [place] [address] [place] Supervisor: Brandon Camara MD Platelet mean volume (Bld) [Entitic vol] 9.0 fL Normal 7.5-12.5 [facility] Comment on above: Performed By: #### 7 600, 26228, 90807, 927, 1759, 03857 #### [facility] of [address], [address] [place] [address] Mel[place] Supervisor: Brandon Camara MD Platelets (Bld) [#/Vol] 260 10*3/uL Normal 140-400 [facility] Comment on above: Performed By: #### 7 600, 27392, 72862, 927, 1759, 51209 #### [facility] of [place] [address] [place] Supervisor: Brandon Camara MD RBC (Bld) [#/Vol] 4.47 10*6/uL Normal 3.80-5.10 [facility] Comment on above: Performed By: #### 7 600, 59073, 57545, 927, 1759, 08927 #### [facility] of [place] [address] [place] Supervisor: Brandon Camara MD WBC (Bld) [#/Vol] 5.5 10*3/uL Normal 3.8-10.8 [facility] Comment on above: Performed By: #### 7 600, 68292, 49427, 927, 1759, 95341 #### [facility] of [place] [address] [place] Supervisor: Brandon Camara MD CBC panel Auto (Bld)on 09-13 Erythrocyte distribution width (RBC) [Ratio] 12.3 % 11.0 - 15.0 % [facility] Hematocrit (Bld) [Volume fraction] 38.8 % 35.0 - 45.0 % [facility] Hemoglobin (Bld) [Mass/Vol] 12.7 g/dL 11.7 - 15.5 g/dL [facility] MCH (RBC) [Entitic mass] 28.4 pg 27.0 - 33.0 pg [facility] MCHC (RBC) [Mass/Vol] 32.7 g/dL 32.0 - 36.0 g/dL [facility] Comment on above: For adults, a slight decrease in the calculated MCHC value (in the range of 30 to 32 g/dL) is most likely not clinically significant; however, it should be interpreted with caution in correlation with other red cell parameters and the patient's clinical condition. MCV (RBC) [Entitic vol] 86.8 fL 80.0 - 100.0 fL [facility] Platelet mean volume (Bld) [Entitic vol] 9 fL 7.5 - 12.5 fL [facility] Platelets (Bld) [#/Vol] 260 10*3/uL [facility] RBC (Bld) [#/Vol] 4.47 10*6/uL [facility] WBC (Bld) [#/Vol] 5.5 10*3/uL [facility] COMPREHENSIVE METABOLIC PANE L W/ANION GAPon 09-13-2024 Albumin [Mass/Vol] 4.8 g/dL Normal 3.6-5.1 [facility] Comment on above: Performed By: #### 7 600, 97444, 16126, 927, 1759, 80429 #### [facility] [place] [address] [place] Supervisor: Brandon Camara MD ALP [Catalytic activity/Vol] 60 U/L Normal 31-125 [facility] Comment on above: Performed By: #### 7 600, 53629, 18522, 927, 1759, 30644 #### [facility] [address] [place] Supervisor: Brandon Camara MD ALT [Catalytic activity/Vol] 14 U/L Normal 6-29 [facility] Comment on above: Performed By: #### 7 600, 55032, 67936, 927, 1759, 39679 #### [facility] [address] [place] Supervisor: Brandon Camara MD AST [Catalytic activity/Vol] 12 U/L Normal 10-30 [facility] Comment on above: Performed By: #### 7 600, 37392, 04176, 927, 175, #### [facility] of [place] [address] [place] Supervisor: Brandon Camara MD Bilirubin [Mass/Vol] 0.4 mg/dL Normal 0.2-1.2 [facility] Comment on above: Performed By: #### 7 600, 29736, 13826, 92, 175, #### [facility] of [place] [address] [place] Supervisor: Brandon Camara MD Calcium [Mass/Vol] 9.6 mg/dL Normal 8.6-10.2 [facility] Comment on above: Performed By: #### 7 600, 71540, 80468, 927, 175, #### [facility] of [place] [address] [place] Supervisor: Brandon Camara MD Chloride [Moles/Vol] 102 mmol/L Normal 98-110 [facility] Comment on above: Performed By: #### 7 600, 33049, 10244, 927, 1758, #### [facility] of [place] [address] [place] Supervisor: Brandon Camara MD CO2 [Moles/Vol] 28 mmol/L Normal 20-32 [facility] Comment on above: Performed By: #### 7 600, 27922, 81689, 92, 1758, #### [facility] of [place] [address] [place] Supervisor: Brandon Camara MD Creatinine [Mass/Vol] 0.86 mg/dL Normal 0.50-0.[address] [facility] Comment on above: Performed By: #### 7 600, 09368, 68366, 927, 175, #### [facility] of [place] [address] [place] Supervisor: Brandon Camara MD ELECTROLYTE BALANCE 7 mmol/L (calc) Normal 7-17 [facility] Comment on above: Performed By: #### 7 600, 25313, 63373, 927, 1759, 73691 #### [facility] [place] [address] [place] Supervisor: Brandon Camara MD GFR/1.73 sq M.predicted among non-blacks MDRD (S/P/Bld) [Vol rate/Area] 93 mL/min/{1.73_m2} Normal > OR = 60 [facility] Comment on above: Performed By: #### 7 600, 81840, 35685, 927, 1759, #### [facility] [place] [address] [place] Supervisor: Brandon Camara MD Glucose [Mass/Vol] 90 mg/dL Normal 65-99 [facility] Comment on above: Result Comment: Fasting reference interval Performed By: #### 7 600, 35888, 77961, 927, 1759, #### [facility] [place] [address] [place] Supervisor: Brandon Camara MD Potassium [Moles/Vol] 4.5 mmol/L Normal 3.5-5.[address] [facility] Comment on above: Performed By: #### 7 600, 99257, 88902, 927, 1759, 18987 #### [facility] [place] [address] [place] Supervisor: Brandon Camara MD Protein [Mass/Vol] 7.4 g/dL Normal 6.1-8.1 [facility] Comment on above: Performed By: #### 7 600, 50211, 49901, 927, 1759, 25164 #### [facility] [place] [address] [place] Supervisor: Brandon Camara MD Sodium [Moles/Vol] 137 mmol/L Normal 135-146 [facility] Comment on above: Performed By: #### 7 600, 79750, 09991, 927, 1759, 89467 #### [facility] [address], [address] [place] [address] Melting Supervisor: Brandon Camraa MD Urea nitrogen [Mass/Vol] 7 mg/dL Normal 7-25 [facility] Comment on above: Performed By: #### 7 600, 20324, 48870, 927, 1759, 94648 #### [facility] [address], [address] [place] [address] Melting Supervisor: Brandon Camara MD Comprehensive metabolic 2000 panelon 09-13-2024 Albumin [Mass/Vol] 4.8 g/dL 3.6 - 5.1 g/dL [facility] ALP [Catalytic activity/Vol] 60 U/L 31 - 125 U/L [facility] ALT [Catalytic activity/Vol] 14 U/L 6 - 29 U/L [facility] Anion gap [Moles/Vol] 7 mmol/L [facility] AST [Catalytic activity/Vol] 12 U/L 10 - 30 U/L [facility] Bilirubin [Mass/Vol] 0.4 mg/dL 0.2 - 1 .2 mg/dL [facility] Calcium [Mass/Vol] 9.6 mg/dL 8.6 - 10. 2 mg/dL [facility] Chloride [Moles/Vol] 102 mmol/L 98 - 11 0 mmol/L [facility] CO2 [Moles/Vol] 28 mmol/L 20 - 32 mmol/L [facility] Creatinine [Mass/Vol] 0.86 mg/dL 0.50 - 0.97 mg/dL [facility] GFR/1.73 sq M.predicted among non-blacks MDRD (S/P/Bld) [Vol rate/Area] 93 mL/min/{1.73_m2} > OR = 60 mL/min/1.73m2 [facility] Glucose [Mass/Vol] 90 mg/dL 65 - 99 mg/dL [facility] Comment on above: Fasting reference interval Potassium [Moles/Vol] 4.5 mmol/L 3.5 - 5.3 mmol/L [facility] Protein [Mass/Vol] 7.4 g/dL 6.1 - 8.1 g/dL [facility] Sodium [Moles/Vol] 137 mmol/L 135 - 146 mmol/L [facility] Urea nitrogen [Mass/Vol] 7 mg/dL 7 - 25 mg/dL [facility] LIPID PANEL, STANDARDon 08-20 Cholesterol [Mass/Vol] 167 mg/dL Normal <200 [facility] Comment on above: Order Comment: FASTI NG:YES FASTING: YES Performed By: #### 7 600, 26968, 67668, 927, 1759, 55332 #### [facility] [address], [address] [place], [place] [id number] [place] Supervisor: Brandon Camara MD Cholesterol in HDL [Mass/Vol] 52 mg/dL Normal > OR = 50 [facility] Comment on above: Order Comment: FASTI NG:YES FASTING: YES Performed By: #### 7 600, 47104, 63593, 927, 1759, 15159 #### [facility] [address], [address] [place], [place] [phone] Melting Supervisor: Brandon Camara MD Cholesterol in LDL [Mass/Vol] [...] LDL-C. Tres RODRIGEZ et al. STEPHANIE. 2013;310(19): 5723-7433 (http://education.[employer]/faq/ZST899) Performed By: #### 7 600, 93556, 69461, 927, 1759, 87546 #### [facility] [address], [address] [place], [place] [address] Melting Supervisor: Brandon Camara MD Cholesterol.total/Chol esterol in HDL [Mass ratio] 3.2 {ratio} Normal <5.0 [facility] Comment on above: Order Comment: FASTI NG:YES FASTING: YES Performed By: #### 7 600, 69496, 67853, 927, 1759, 42365 #### [facility] [address], [address] [place] [address] [place] Supervisor: Brandon Camara MD NON HDL CHOLESTEROL 115 mg/dL (calc) Normal <130 [facility] Comment on above: Order Comment: FASTI NG:YES FASTING: YES Result Comment: For patients with diabetes plus 1 major ASCVD risk factor, treating to a non-HDL-C goal of <100 mg/dL (LDL-C of <70 mg/dL) is considered a therapeutic option. Performed By: #### 7 600, 06531, 63613, 927, 1759, 01671 #### [facility] [address], [address] [place] [address] [place] Supervisor: Brandon Camara MD Triglyceride [Mass/Vol] 103 mg/dL Normal <150 [facility] Comment on above: Order Comment: FASTI NG:YES FASTING: YES Performed By: #### 7 600, 53844, 16298, 927, 1759, 49698 #### [facility] [address], [address] [place] [address] [place] Supervisor: Brandon Camara MD Lipid 1996 panelon 5 Cholesterol [Mass/Vol] 167 mg/dL NINF - 200 mg/dL [facility] Cholesterol in HDL [Mass/Vol] 52 mg/dL > OR = 50 [facility] Cholesterol in LDL [Mass/Vol] 95 mg/dL mg/dL (calc) [facility] Comment on above: Reference range: <10 0 Desirable range <100 mg/dL for primary prevention; <70 mg/dL for patients with CHD or diabetic patients with > or = 2 CHD risk factors. LDL-C is now calculated using the Dean calculation, which is a validated novel method providing better accuracy than the Friedewald equation in the estimation of LDL-C. Tres RODRIGEZ et al. STEPHANIE. 2013;310(19): 3420-5167 (http://education.[employer]/faq/UUX176) Cholesterol non HDL [Mass/Vol] 115 mg/dL [facility] Comment on above: For patients with di abetes plus 1 major ASCVD risk factor, treating to a non-HDL-C goal of <100 mg/dL (LDL-C of <70 mg/dL) is considered a therapeutic option. Cholesterol.total/Chol esterol in HDL [Mass ratio] 3.2 {ratio} [facility] Triglyceride [Mass/Vol] 103 mg/dL [facility] - 150 mg/dL [facility] No Panel Informationon 09-13 FASTING:YES FASTING: YES [facility] W/REFLEX TO FT4on 2024 TSH W/REFLEX TO FT4 2.63 mIU/L Normal [facility] Comment on above: Result Comment: Refe rence Range > or = 20 Years 0.40-4.50 Ranges First trimester 0.26-2.66 Second trimester 0.55-2.73 Third trimester 0.43-2.91 Performed By: #### 7 600, 81221, 32214, 927, 1759, 22788 #### [facility] [address], [address] [place] [address] [place] Supervisor: Brandon Camara MD TSH with reflex to Free T4 i f abnormalon 09-13-2024 TSH Qn 2.63 m[IU]/L mIU/L [facility] Comment on above: Reference Range > or = 20 Years 0.40-4.50 Ranges First trimester 0.26-2.66 Second trimester 0.55-2.73 Third trimester 0.43-2.91 VITAMIN B12on 09-13-2024 Cobalamin (Vitamin B12) [Mass/Vol] 402 pg/mL Normal 200-1100 [facility] Comment on above: Performed By: #### 7 600, 79317, 10469, 927, 1759, 02288 #### [facility] [address], [address] [place] [phone] [place] Supervisor: Brandon Camara MD VITAMIN D,25-OH,TOTAL,IAon 0 09-13-2024 VITAMIN D,25-OH,TOTAL,IA 26 ng/mL Low 30-100 [facility] Comment on above: Result Comment: Stefanie min D Status 25-OH Vitamin D: Deficiency: <20 ng/mL Insufficiency: 20 - 29 ng/mL Optimal: > or = 30 ng/mL For 25-OH Vitamin D testing on patients on D2-supplementation and patients for whom quantitation of D2 and D3 fractions is required, the QuestAssure[facility](TM) 25-OH VIT D, (D2,D3), LC/MS/MS is recommended: order code 75329 (patients >2yrs). See Note 1 Note 1 For additional information, please refer to http://education.[employer]/faq/YNV451 (This link is being provided for informational/ educational purposes only.) Performed By: #### 7 600, 72755, 03647, 927, 1759, 55276 #### [facility] [address], [address] [place] [phone] [place] Supervisor: Brandon Camara MD Vitamin B12on 09-13-2024 Cobalamin (Vitamin B12) [Mass/Vol] 402 pg/mL 200 - 1100 pg/mL [facility] Quantiferon-TB Plus (Client Incubated)on 04-02-2024 Gamma interferon background IA Qn (Bld) 0.01 International_Unit/mL Invalid Interpretation Code [facility] Comment on above: Performed By: #### 1 [id number] #### [facility] [address] [place] [address] M. tuberculosis stim IFN-g by CD4+ CD8+ T-cells corrected for background Qn (Bld) 0.02 International_Unit/mL Invalid Interpretation Code [facility] Comment on above: Performed By: #### 1 [id number] #### [facility] [address] [place] [address] M. tuberculosis stim IFN-g by CD4+ T-cells corrected for background Qn (Bld) 0.03 International_Unit/mL Invalid Interpretation Code [facility] Comment on above: Performed By: #### 1 [id number] #### [facility] [address] [place] [address] M. tuberculosis stim IFN-g Ql (Bld) [Interp] Negative Invalid Interpretation Code Negative [facility] Comment on above: Result Comment: No [...] interferon gamma. Chemiluminescence immunoassay methodology Performed at: [facility] [address] [id number] PhD Leeanne Garcia Performed By: #### 1 [id number] #### [facility] [address] [place] [address] Mitogen stimulated gamma interferon corrected for background Qn (Bld) >10.00 Invalid Interpretation Code [facility] Comment on above: Performed By: #### 1 [id number] #### [facility] [address] [place] [address] Service comment (Unsp spec) [Interp] Comment Invalid Interpretation Code [facility] Comment on above: Result Comment: Be [...] for the test. Performed By: #### 1 [id number] #### [facility] [address] [place] [address] Hep Bs Abon 03-31-2024 HBV surface Ab Ql (S) Reactive Invalid Interpretation Code [facility] Comment on above: Result Comment: Non Reactive: Not immune to HBV infection. Equivocal: Unable to determine if anti-HBs is present at levels consistent with immunity. Reactive: Anti-HBs concentration detected at greater than 10 mIU/mL. Individual is considered to be immune to infection with HBV. Performed at: [address] [id number] PhD Leeanne Garcia Performed By: #### 2 [id number] #### [facility] [address] [place] [address] Measles/Mumps/Rubella Immuni tyon 03-31-2024 MeV IgG IA Qn (S) 206.0 A unit/mL Invalid Interpretation Code Immune >16.4 [facility] Comment on above: Result Comment: Nega tive <13.5 Equivocal 13.5 - 16.4 Positive >16.4 Presence of antibodies to Rubeola is presumptive evidence of immunity except when acute infection is suspected. Performed By: #### 3 [id number] #### [facility] [address] [place] [address] MuV IgG IA Qn (S) 38.5 A unit/mL Invalid Interpretation Code Immune >10.9 [facility] Comment on above: Result Comment: Nega tive <9.0 Equivocal 9.0 - 10.9 Positive >10.9 A positive result generally indicates past exposure to Mumps virus or previous vaccination. Performed at: [address] [id number] PhD Leeanne Garcia Performed By: #### 3 [id number] #### [facility] [address] [place] [address] Rubella virus IgG Qn (S) 1.07 [IU]/mL Invalid Interpretation Code Immune >0.99 [facility] Comment on above: Result Comment: Non- immune <0.90 Equivocal 0.90 - 0.99 Immune >0.99 Performed By: #### 3 [id number] #### [facility] [address] [place] [address] Varic IgGon 03-31-2024 VZV IgG IA Qn (S) 1518 Invalid Interpretation Code Immune >165 [facility] Comment on above: Result Comment: Nega tive <135 Equivocal 135 - 165 Positive >165 A positive result generally indicates exposure to the pathogen or administration of specific immunoglobulins, but it is not indication of active infection or stage of disease. Performed at: [facility] [address] [id number] PhD Leeanne Garcia Performed By: #### 1 [id number] #### [facility] [address] [place] [address] Consent Formson 12-16-2023 Consent Forms [id number] [facility] ED Clinical Summaryon 2023 ED Clinical Summary [facility] ? Urgent Care [address] [place], [place] [id number] Clinical Summary PERSON INFORMATION Name: PRINCESS GUERRERO Age: 28 Years Sex: FEMALE : 1995 MRN: Acct#: Visit Reason: Medical screening exam; [facility] Arrival: 12/15/2023 11:27:18 Discharge: 12/15/2023 11:57:00 LOS: 000 00:30 Check In: 12/15/2023 11:27:18 Checkout: 12/15/2023 11:57:00 Address: [address] [place] [address] PCP: Provider, None PROVIDER INFORMATION Provider Role [...] blood pressure. With: Address: When: None Provider [address] [place] [address] DIAGNOSIS: Elevated blood pressure reading; Physical exam Patient Understands: Yes - Patient/family/caregiv er verbalizes understanding of instructions given Comment: Normal [facility] ED Patient Summaryon 024 ED Patient Summary [facility] ? Urgent Care [address] [place], [place] [id number] PATIENT DISCHARGE INSTRUCTIONS Patient Information Name: PRINCESS GUERRERO Age: 28 Years Date of : 1995 [facility]: [id number] Reason For Visit: Medical screening exam; [facility] Arrival Time: 12/15/2023 11:27:18 Primary Care Physician: Provider, None Attending Physician: TARAS FAUSTIN Comment: Patient Education With: Address: When: Your primary provider in your hometown Within 2 to 4 days Comments: Follow-up for reevaluation of your blood pressure. With: Address: When: None Provider [address] [place] [address] Hypertension, Adult High blood pressure (hypertension) is [...] chicken wit (more content not included)... Normal [facility] Note- Provideron 12-15-2023 Urgent [...] - pharynx pink and moist. NECK: -Supple ([id number]): non-tender. CARD: -Rate and rhythm: Regular RESP: [...] Plan Assessment and Plan: Diagnosis: Physical exam (UNO75-ZK Z00.00), Elevated blood pressure reading (MVY40-FX R03.0). Cleared for employment [Electronically Signed on: 12/15/2023 11:52 EDT] TARAS FAUSTIN [Verified on: 12/15/2023 11:52 EDT] TARAS FAUSTIN Normal [facility] [place] 024 Urgent Care Record [facility] ? Urgent Care [address] [place] [address] PATIENT DISCHARGE INSTRUCTIONS Patient Information Name: PRINCESS [...] blood pressure. With: Address: When: None Provider [address] [place], [place] [address] Medication Information: The exam and treatment you received today in the [facility] were for an urgent problem and are not intended as complete care. It is important for you to follow up with a doctor, nurse practitioner, or physician?s behavioral assistant for ongoing care. If your symptoms become [...] so we can reach you if necessary. [facility] has provided you with a complete list of medications post discharge. Please inform your field organizer/provider of your visit and for further instruction [...] much fat, sugar, (more content not included)... [facility] 08-04-2023 L Specimen: [id number] Received: 08/04/23 Status: LAZARA Lyn Num: [id number] Spec Type: Surgical Subm Dr: Willis Chen Tissues: A Placenta - 3rd Trimester (Greater than 28 weeks) (PLACENTA) Procedures: HE/3, Gross/Micro L5 Age/ Patient Sex Location Account Attending Physician Princess Cantu 27/F [facility] [id number] Willis Chen SPEC NUM: [id number] RECD: 08/04/23 STATUS: LAZARA LYN NUM: [id number] JOSE: 08/04/[address]: Willis Chen ENTERED: 08/04/[address] [facility] DR: Giselle,Lab SPEC TYPE: Surgical DEPT: ROSS [...] parenchyma up to 3.1 cm in thickness. Dispensing Lead sections are submitted in 3 cassettes as follows: A1 - membranes, umbilical cord, and decidua basalis A2 - Central placenta full-thickness A3 - Peripheral placenta, full-thickness ---- Specimen: [id number] Received: 08/04/23 Status: LAZARA Lyn Num: [id number] Spec Type: Surgical Subm Dr: Willis Chen Tissues: A Placenta - 3rd Trimester (Greater than 28 weeks) (PLACENTA) Procedures: HE/3, Gross/Micro L5 ---- Patient: Princess Cantu [id number] (Continued) ---- Specimen: [id number] Received: 08/04/23 (Continued) Signed (signature on file) Juliet Sykes MD 08/08/232229 ---- Specimen: [id number] Received: 08/04/23 Status: LAZARA Lyn Num: [id number] Spec Type: Surgical Subm Dr: Willis Chen Tissues: A Placenta - 3rd Trimester (Greater than 28 weeks) (PLACENTA) Procedures: DELMY/Tru, Gross/Micro L5 ---- Patient: Princess Cantu [id number] (Continued) ---- Specimen: [id number] Received: 08/04/23 (Continued) CPT Codes 50909 ---- ---- Specimen: [id number] Received: 08/04/23-150 Status: LAZARA Lyn Num: [id number] Spec Type: Surgical Subm Dr: Willis Chen Tissues: A Placenta - 3rd Trimester (Greater than 28 weeks) (PLACENTA) Procedures: Jesica TODD/Danitza L5 ---- Patient: Princess Cantu [id number] (Continued) ---- Signed (signature on file) Juliet Sykes MD 08/08/23 5108 [facility] DHEA SERUMon 11-20-2022 Dehydroepiandrosterone (DHEA) 656 ng/dL Normal 31-701 [facility] Comment on above: Performed By: #### D HEA. #### [facility] [address] [place], [place] [address] Dr. Vish Brown ANTI-MULLERIAN HORMONEon Anti-Mullerian Hormone (AMH) 4.47 ng/mL Normal [facility] Comment on above: Result Comment: For assays employing antibodies, the possibility exists for interference by heterophile antibodies in the samples.1 1.Favio Campos Interferences in Immunoassays - still a threat. Clin. Chem. 2000; 46: 9326-2120. This test was developed and its performance characteristics determined by [employer]. It has not been cleared or approved by the Food and Drug Administration. Reference Range: Females 26 - 30y: 1.03 - 11.10 Median 4.20 AMH concentrations of >= 1.06 ng/mL is correlated with a better response to ovarian stimulation, produced more retrievable oocytes and higher odds of live according to Gabi et al. Fertility and Sterility. 2010: 94:4626-1110. The current AMH test method correlates with [...] tumor. Performed By: #### L [facility] #### [facility] [address] [place], [place] [address] Dr. Vish Brown DHEA-SULFATEon 11-17-2022 DHEA-Sulfate 449.0 ug/dL Critically high 84.8-378.0 [facility] Comment on above: Performed By: #### L [facility] #### [facility] [address] [place], [place] [address] Dr. Vish Brown ESTRADIOLon 11-17-2022 Estradiol 34.3 pg/mL Normal [facility] Comment on above: Result Comment: Adul t Female: Follicular phase 12.5 - 166.0 Ovulation phase 85.8 - 498.0 Luteal phase 43.8 - 211.0 Postmenopausal <6.0 - 54.7 1st trimester 215.0 - >4300.0 Ele ECLIA methodology Performed By: #### E CHLOE #### [facility] [address] [place] [address] Dr. Vish Brown FSHon 11-17-2022 FSH 6.1 mIU/mL Normal [facility] Comment on above: Result Comment: Adul t Female: Follicular phase 3.5 - 12.5 Ovulation phase 4.7 - 21.5 Luteal phase 1.7 - 7.7 Postmenopausal 25.8 - 134.8 Performed By: #### [facility] #### [facility] [address] [place] [address] Dr. Vish Brown LUTEINIZING HORMONE (LH)on 0 11-17-2022 LH 4.5 mIU/mL Normal [facility] Comment on above: Result Comment: Adul t Female: Follicular phase 2.4 - 12.6 Ovulation phase 14.0 - 95.6 Luteal phase 1.0 - 11.4 Postmenopausal 7.7 - 58.5 Performed By: #### L BRUNA #### [facility] [address] [place] [address] Dr. Vish Brown PROGESTERONEon 11-17-2022 Progesterone 0.8 ng/mL Normal [facility] Comment on above: Result Comment: Foll icular phase 0.1 - 0.9 Luteal phase 1.8 - 23.9 Ovulation phase 0.1 - 12.0 First trimester 11.0 - 44.3 Second trimester 25.4 - 83.3 Third trimester 58.7 - 214.0 Postmenopausal 0.0 - 0.1 Performed By: #### P TASNEEM #### [facility] [address] [place] [address] Dr. Vish Brown CBC AUTO DIFFon 11-16-2022 BASO # 0.0 103/ul Normal 0.0-0.1 [facility] Comment on above: Performed By: #### L SUHAS #### [facility] [address] [place] [address] Dr. Vish Brown Basophils/100 WBC (Bld) 0.5 % Normal 0.2-2.0 [facility] Comment on above: Performed By: #### L BRUNA #### [facility] [address] [place] [address] Dr. Vish Brown EO # 0.3 103/ul Normal 0.0-0.7 [facility] Comment on above: Performed By: #### L BCLH #### [facility] [address] [place] [address] Dr. Vish Brown Eosinophils/100 WBC (Bld) 4.0 % Normal 0.9-7.0 [facility] Comment on above: Performed By: #### L BCLH #### [facility] [address] [place] [address] Dr. Vish Brown Erythrocyte distribution width (RBC) [Ratio] 12.0 % Normal 11.0-15.0 [facility] Comment on above: Performed By: #### L BCLH #### [facility] [address] [place] [address] Dr. Vish Brown Hematocrit (Bld) [Volume fraction] 39.1 % Normal 36.0-48.0 [facility] Comment on above: Performed By: #### L BCLH #### [facility] [address] [place] [address] Dr. Vish Brown Hemoglobin (Bld) [Mass/Vol] 13.0 g/dL Normal 12.0-16.0 [facility] Comment on above: Performed By: #### L BCLH #### [facility] [address] [place] [address] Dr. Vish Brown IG # 0.02 10e3/ul Normal 0.00-0.03 [facility] Comment on above: Performed By: #### L BCLH #### [facility] [address] [place] [address] Dr. Vish Brown IG % 0.3 % Normal 0.0-0.5 [facility] Comment on above: Performed By: #### L BCLH #### [facility] [address] [place] [address] Dr. Vish Brown LYMPH # 2.5 103/ul Normal 1.2-3.8 [facility] Comment on above: Performed By: #### L BCLH #### [facility] [address] [place] [address] [address] Vish Brown Lymphocytes/100 WBC (Bld) 32.4 % Normal 20.5-60.0 [facility] Comment on above: Performed By: #### L BCL #### [facility] [address] [place] [address] Dr. Vish Brown MANUAL DIFF REQ NO Normal [facility] Comment on above: Performed By: #### L BCLH #### [facility] [address] [place] [address] Dr. Vish Brown MCH (RBC) [Entitic mass] 29.9 pg Normal 26.7-34.0 [facility] Comment on above: Performed By: #### L BCLH #### [facility] [address] [place] [address] Dr. Vish Brown MCHC (RBC) [Mass/Vol] 33.2 g/dL Normal 29.9-35.2 [facility] Comment on above: Performed By: #### L BCL #### [facility] [address] [place] [address] Dr. Vish Brown MCV (RBC) [Entitic vol] 89.9 fL Normal 81.0-99.0 [facility] Comment on above: Performed By: #### L BCL #### [facility] [address] [place] [address] Dr. Vish Brown MONO # 0.6 103/ul Normal 0.3-0.8 [facility] Comment on above: Performed By: #### L BCL #### [facility] [address] [place] [address] Dr. Vish Brown Monocytes/100 WBC (Bld) 7.4 % Normal 1.7-12.0 [facility] Comment on above: Performed By: #### L BCLH #### [facility] [address] [place] [address] Dr. Vish Brown NEUT # 4.3 103/ul Normal 1.4-6.5 [facility] Comment on above: Performed By: #### L BCLH #### [facility] [address] [address] [address] Vish Brown Neutrophils/100 WBC (Bld) 55.4 % Normal 43.0-75.0 [facility] Comment on above: Performed By: #### L BCLH #### [facility] [address] [address] [address] Vish Brown Platelet mean volume (Bld) [Entitic vol] 9.0 fL Critically low 9.5-13.5 [facility] Comment on above: Performed By: #### L BCL #### [facility] [address] [address] [address] Vish Brown PLT 277 103/ul Normal 150-450 [facility] Comment on above: Performed By: #### L BCLH #### [facility] [address] [place] [address] Dr. Vish Brown RBC 4.35 106/ul Normal 4.20-5.40 [facility] Comment on above: Performed By: #### L BCLH #### [facility] [address] [address] [address] Vish Brown WBC 7.7 103/ul Normal 4.0-11.0 [facility] Comment on above: Performed By: #### L BCLH #### [facility] [address] [place] [address] Dr. Vish Brown FREE T4on 11-16-2022 Free T4 [Mass/Vol] 1.08 ng/dL Normal 0.76-1.46 [facility] Comment on above: Performed By: #### F T4 #### [facility] [address] [place] [address] Dr. Vish Brown GLYCOHEMOGLOBIN A1Con 2022 ADA RECOMMENDATION SEE BELOW Normal [facility] Comment on above: Result Comment: ADA RECOMMENDED LIMIT 4.0 - 6.0 ADA THERAPEUTIC TARGET < 7.0 ACTION SUGGESTED > 7.0 Performed By: #### A 1C #### [facility] [address] [place] [address] Dr. Vish Brown Glucose [Mass/Vol] 94 mg/dL Normal [facility] Comment on above: Performed By: #### A 1C #### [facility] [address] [address] [address] Vish Brown HbA1c (Bld) [Mass fraction] 4.9 % Normal 4.5-6.2 [facility] Comment on above: Performed By: #### A 1C #### [facility] [address] [place] [address] Dr. Vish Brown PREG QUANT HCGon 11-16-2022 HCG QUANT <1 Normal [facility] Comment on above: Performed By: #### P REGQNT, TSH #### [facility] [address] [place] [address] Dr. Vish Brown HCG RANGE SEE BELOW Normal [facility] Comment on above: Result Comment: 5-50 0.2-1 WEEK 50-500 1-2 WEEKS 100-5,000 2-3 WEEKS 500-10,000 3-4 WEEKS 1,000-50,000 4-5 WEEKS 10,000-100,000 5-6 WEEKS 15,000-200,000 6-8 WEEKS 10,000-100,000 2-3 MONTHS Performed By: #### P REGQNT, TSH #### [facility] [address] [place] [address] Dr. Vish Brown TSHon 11-16-2022 TSH 2.030 uIU/mL Normal 0.358-3.740 [facility] Comment on above: Performed By: #### P REGQNT, TSH #### [facility] [address] [place] [address] Dr. Vish Brown HM 19-49 Yearson 07-31-2022 [...] Services - Lab To Draw (Blood Test); Due:[id number];Ordered; For:Benign essential hypertension; Ordered By:Koffi Uriarte; Lipid Panel; Status:Active; Requested for:31Jul2022; Perform:Lab Services - Lab To Draw (Blood Test); Due:[id number];Ordered; For:Benign essential hypertension; Ordered By:Koffi Uriarte; Provider [...] Adult depression screening assessment No [facility] [employer] Work Phone: Fall risk assessment a) No falls within the last year [facility] Work Phone: Tobacco use status [facility] b) No [facility]DV[facility] Work Phone: B-HCG SerPl-aCncon 2 HCG.beta subunit Qn m[IU]/mL Normal <5.0 [facility] Comment on above: Order Comment: Speci men Type: BLOOD SPECIMENOrdering Facility: [facility] Address: [address] [place] [address] Result Comment: Nega tive Performed By: #### G CCT #### [facility] [address] [place] [address] BACTERIAL VAGINOSIS AMPLIFIC ATIONon 04-16-2022 Lactobacillus crispatus+gasseri+freddy enii + Gardnerella vaginalis + Atopobium vaginae rRNA HUMERA+probe Ql (Vag fld) Negative Normal Negative for bacterial vaginosis [facility] Comment on above: Order Comment: Speci men Type: SWAB [facility] Address: [address] [place] [address] Performed By: #### C VTV, BVAMP #### [facility] CLIA [id number] [address] [place] [address] [place] C. trachomatis+N. gonorrhoea e DNA HUMERA+probe Ql (Unsp spec)on 04-16-2022 C. trachomatis DNA HUMERA+probe Ql (Unsp spec) Negative Normal Negative for Chlamydia trachomatis by amplificaton [facility] Comment on above: Order Comment: Speci men Type: SWAB [facility] Address: [address] [place] [address] Performed By: #### C VTV, BVAMP #### [facility] CLIA [id number] [address] [place] [address] OF [facility] N. gonorrhoeae DNA HUMERA+probe Ql (Unsp spec) Negative Normal Negative for Neisseria gonorrhoeae by amplification [facility] Comment on above: Order Comment: Speci men Type: SWAB [facility] Address: [address] [place] [address] Performed By: #### C VTV, BVAMP #### [facility] CLIA [id number] [address] [place] [address] OF ONI MITCH / TRICHOMONAS AMPLIF ICATIONon 04-16-2022 MITCH / TRICHOMONAS AMPLIFICATION MITCH [employer] GROUP RNA: Negative for Mitch species MITCH GLABRATA RNA: Negative for Mitch glabrata TRICH VAG AMPLIFICATION RNA: Negative for Trichomonas vaginalis by amplification Normal [facility] Comment on above: Performed By: #### C VTV, BVAMP #### [facility] CLIA [id number] [address] [place] [address] [place] CNCOon 04-16-2022 CNCO Letter Text Letter Text Normal [facility] CNOVon 04-16-2022 CNOV Office Visit ([facility] ) PRINCESS CANTU ([id number]) 1995 F Date Time Provider Department 04/16/22 8:00 AM BRENDAN BLANKENSHIP [facility] During your visit today, we recorded the following information about you: Pulse Blood pressure Weight Height 77/minute 134/84 91.9 kg 1.727 m Last Period 03/19/22 Brendan Blankenship PA-C 04/16/2022 8:18 AM Signed Princess Cantu is a 26 year old [...] History Social History Narrative Single No pregnancies 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 I, Brendan Blankenship, have reviewed this information as documented for accuracy and performed all elements of history taking, and edited the record as necessary. 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 #:[id number] BACTERIAL VAGINOSIS AMPLIFICATION [SQBVAMP] Order #: [id number]. #:[id number] GC/CHLAMYDIA DNA DET [SQGCCAMP] Order #: [id number]. #:[id number] SYPHILIS TOTAL W/REFLEX [SQSYPHTX] Order #: [id number] FUTURE HIV 1 2 COMBO(AG/AB),WITH REFLEX TO DIFFERENTIATION [SQHIV12] Order #: [id number] FUTURE HEP C AB IA W/CONF SCRN [CWKZJC2L] Order #: [id number] FUTURE HEP B SURF AG SCRN [SQHBSAG] Order #: [id number] FUTURE Prescriptions as of 04/16/2022 - lamoTRIgine [...] Status:Closed by BRENDAN BLANKENSHIP on 04/16/22 Normal [facility] HBV surface Ab IA Ql (S)on 0 04-16-2022 HBV surface Ag Ql (S) Negative Normal Negative [facility] Comment on above: Order Comment: Speci men Type: BLOOD SPECIMENOrdering Facility: [facility] Address: [address] [place] [address] Performed By: #### G CCT #### [address] [phone] HCV Ab Ser Qlon 04-16-2022 HCV Ab Ql (S) Negative Normal Negative [facility] Comment on above: Order Comment: Speci men Type: BLOOD SPECIMEN [facility] Address: [address] [place] [address] Result Comment: The result suggests no evidence of active infection with Hepatitis C virus. Should recent infection be suspected, repeat testing may be considered 4-6 weeks after this draw. Performed By: #### 1 6128-1 #### [facility] CLIA [id number] [address] [place] [address] STATES OF [facility] HIV 1+2 Ab IA Qlon 2 HIV 1 and 2 Ab IA.rapid Nom Normal [facility] Comment on above: Order Comment: Speci men Type: BLOOD SPECIMENOrdering Facility: [facility] Address: [address] [place] [address] Result Comment: Test not indicated. Performed By: #### G CCT #### [address] [phone] HIV 1+2 Ab+HIV1 p24 Ag IA Ql Non-Reactive Normal Nonreactive [facility] Comment on above: Order Comment: Speci men Type: BLOOD SPECIMENOrdering Facility: [facility] Address: [address] [place] [address] Performed By: #### G CCT #### [facility] [employer] [address] [place] [address] HIVINT Normal [facility] Comment on above: Order Comment: Speci men Type: BLOOD SPECIMENOrdering Facility: [facility] Address: [address] [place] [address] Result Comment: No e vidence of HIV-1 or HIV-2 infection. Should recent infection be suspected, repeat testing may be considered 2-3 weeks after this draw. [place] Rev. Code 3701.243(E): This information has been [...] diagnoses. Performed By: #### G CCT #### [address] [phone] Reagin and Treponema pallidu m IgG and IgM [Interp]on 04-16-2022 SYPHILIS INTERPRETATION Cannot exclude recent Treponemal infection if specimen collected within 7-10 days after appearance of suspect lesions or 2-3 weeks after an exposure. Clinical correlation is required. Normal [facility] Comment on above: Order Comment: Speci men Type: BLOOD SPECIMENOrdering Facility: [facility] Address: [address] [place] [address] Performed By: #### G CCT #### [address] [phone] T. pallidum IgG+IgM IA Ql (S) Non-Reactive Normal Nonreactive [facility] Comment on above: Order Comment: Speci men Type: BLOOD SPECIMENOrdering Facility: [facility] Address: [address] [place] [address] Performed By: #### G CCT #### [facility] [employer] [address] [place] [address] CHEMISTRYOrdered By: [employer] SYSTEM on 03-24-2022 HCG.beta subunit Qn 1 m[IU]/mL Normal 1 - 3 mIU/mL FTM C Erikaisojohn Roxanne 03-24-2022 CNPN Telephone ([facility]) PRINCESS CANTU ([id number]) 1995 F Date Time Provider Department 03/24/22 KAVITA SWEET [facility] During your visit today, we [...] Fully Assessed Reason for Visit: Bleeding With [79445] Primary Visit Diagnosis:Bleeding in early [O20.9] Order(s):HCG QUANTITATIVE [SQHCGQT] Order #: [id number] FUTURE Prescriptions as of 03/24/2022 - metroNIDAZOLE [...] Encounter Status:Closed by BRENDAN SOUZA on 03/24/22 [facility] PRINCESS CANTU ([id number]) 1995 F Date Time Provider Department 03/19/22 [place] DWYER [facility] During your visit today, we recorded [...] Status:Closed by MARY ONOFRE on 03/19/22 Normal [facility] Office Visit (Neuro-General) on 12-24-2021 [...] or bowel/bladder incontinence. She was taken to [facility] in [place]. She had lab work and a CT [...] DAILY. Vitals Vital Signs Recorded: 24Dec2021 11:32AM Zfgopgunqpi75.1 F Heart Rate54 Ffbddujz896 Wjiomubzr15 Height5 ft 9 in Qlnbdt274 lb 1.6 oz BMI Cxppswnioy17.03 kg/m2 BSA Calculated2.11 Tobacco Useb) No Fall Screeninga) No falls within the last year O2 Awfrnjwqvl417, RA Physical Exam Constitutional: General appearance: no [...] Dec 24 2021 11:37AM EST (Author) Normal [employer] Tobacco Screening.on Fall risk assessment a) No falls within the last year [facility] [facility] DO Work Phone: Tobacco use status [facility] b) No -[facility] [facility] DO Work Phone: Office Visit (Primary [...] Nov 17 2021 1:34PM EST (Author) Normal [employer] Tobacco Screening.on 022 Adult depression screening assessment No MP-WSPC-[facility] n [employer] Work Phone: Fall risk assessment a) No falls within the last year WP-[facility] Work Phone: Tobacco use status [facility] b) No EP-OVAS[facility] Work Phone: Bact Vag Amplificationon Bact Vag Amplification Positive Criticall y abnormal Negative for bacterial vaginosis [facility] Comment on above: Performed By: #### G CCT #### [facility] [address] [place], [place] [address] CNOVon 09-09-2021 CNOV Office Visit ([facility] ) PRINCESS CANTU ([id number]) 1995 F Date Time Provider Department 09/09/21 [...] History Social History Narrative Single No pregnancies 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 Portions of this record were documented by the Manager Pool. I, Brendan Blankenship, have reviewed this information as documented for accuracy and performed all elements of history taking, and edited the record as necessary. ROS: SEE HPI PE: GENERAL: well-appearing, in no acute distress LUNGS: Normal inspiratory effort ENGINEERING FACULTY MEMBER: Small amount yellow mucus discharge, cervix NL. [...] Order(s):MITCH / TRICHOMONAS AMPLIFICATION [SQCVTV] Order #: [id number] BACTERIAL VAGINOSIS AMPLIFICATION [SQBVAMP] Order #: [id number] GC/CHLAMYDIA DNA DET [SQGCCAMP] Order #: [id number] metroNIDAZOLE (FLAGYL) 500 mg tabletTake 1 tablet [...] Encounter Status:Closed (more content not included)... Normal [facility] Mitch Trich Amplon 022 Mitch glabrata RNA Negative Normal Negative [facility] Comment on above: Performed By: #### G CCT #### [facility] [address] [phone] Mitch sp group RNA Negative Normal Negative [facility] Comment on above: Performed By: #### G CCT #### [phone] [phone] Trichomonas RNA Negative Normal [facility] Comment on above: Performed By: #### G CCT #### [address] [phone] GC/Chlamydia Amplifon 2021 Chlamydia Amplif Negative Normal [facility] Comment on above: Performed By: #### G CCT #### [facility] [address] [phone] GC Amplification Negative Normal [facility] Comment on above: Performed By: #### G CCT #### [facility] [address] [phone] GC/Chlam Amp Source Cervix Normal [facility] Comment on above: Performed By: #### G CCT #### [facility] [address] [address] Bact Vag Amplificationon Bact Vag Amplification Negative Normal Negat ko for bacterial vaginosis [facility] Comment on above: Performed By: #### C VTV, BVAMP #### [facility] CLIA [id number] [address] [facility] [address] OF [facility] CNOVon 07-04-2021 CNOV Office Visit (OBGYCC ) CANTUPRINCESS SUMMERS ([id number]) 1995 [facility] Date Time Provider Department 07/04/21 4:00 PM [facility] your visit today, we recorded the following information about you: Pulse Blood pressure Weight Height 74/minute 131/86 95.7 kg 1.727 m Last Period 06/07/21 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 APRN.MEDICAL SERVICES ASSISTANT 07/04/2021 4:39 PM Signed Princess is a [...] Sexually active: Yes History of STDS:: chlamydia 2015, HPV History of ovarian cyst: No History of endometriosis: No History of infertility: No History of PCOS: No OB History T0 L0 SAB0 IAB0 Ectopic0 Multiple0 Live Births0 Comment: Menarche 10 Audio Director History LMP: 06/07/2021 (Exact Date), Having periods Age at Menarche: Age at First : Age at Menopause: Audio Director History Comments: Sexual Activity: Yes; Male; same [...] external genitalia normal, normal Bartholin's glands, urethra, [place]'s glands, no vulvar lesions, no cervical lesions, [...] type of detergents for washing undergarments, wiping grgsh-jd-ofzt, sleep in loose shorts without underwear, shower [...] health screening schedule is recommended by the [place] [employer] (ACOG). Some of these tests may be ordered or performed by your primary care doctor. Pap test screening The pap test loo (more content not included)... Normal [facility] Mitch Trich Amplon 12-17-2 021 Mitch glabrata RNA Negative Normal Negative [facility] Comment on above: Performed By: #### C VTV, BVAMP #### [facility] CLIA [id number] [address] [place] [address] [place] Mitch sp group RNA Negative Normal Negative [facility] Comment on above: Performed By: #### C VTV, BVAMP #### [facility] CLIA [id number] [address] [place] [address] [place] Trichomonas RNA Negative Normal [facility] Comment on above: Performed By: #### C VTV, BVAMP #### [facility] CLIA [id number] [address] [facility] [address] [address] [place] GC/Chlamydia Amplifon 2020 Chlamydia Amplif Negative Normal [facility] Comment on above: Performed By: #### G CCT #### [facility] [address] [address] GC Amplification Negative Normal [facility] Comment on above: Performed By: #### G CCT #### [phone] [place] [address] GC/Chlam Amp Source Cervix Normal [facility] Comment on above: Performed By: #### G CCT #### [address] [id number] Tobacco Screening.on 021 Fall risk assessment a) No falls within the last year [facility] [facility] DO Work Phone: Tobacco use status [facility] b) No [facility] [facility] DO Work Phone: GC + Chlamydia By Amplified Detectionon 05-20-2021 C. trachomatis rRNA HUMERA+probe Ql (Unsp spec) Negative Negative [facility] Work Phone: Comment on above: The APTIMA Combo 2 a ssay is FDA-approved for Chlamydia trachomatis and Neisseria gonorrhoeae testing on female endocervical and vaginal swabs, ThinPrep liquid pap samples, male urine samples and urethral swabs. Performance characteristics for Chlamydia trachomatis and Neisseria gonorrhoeae testing on specific ejs-SUW-qhynhfqj sample types (female urine samples) have been validated by [facility]. This laboratory is certified by CLIA to perform high complexity testing. Samples from all other sites are not validated for this method. N. gonorrhoeae rRNA HUMERA+probe Ql (Unsp spec) Negative Negative [facility] Work Phone: Comment on above: SOURCE: Urine The AP KELSIE Combo 2 assay is FDA-approved for Chlamydia trachomatis and Neisseria gonorrhoeae testing on female endocervical and vaginal swabs, ThinPrep liquid pap samples, male urine samples and urethral swabs. Performance characteristics for Chlamydia trachomatis and Neisseria gonorrhoeae testing on specific xxx-RXG-dxgvhtkx sample types (female urine samples) have been validated by [facility]. This laboratory is certified by CLIA to perform high complexity testing. Samples from all other sites are not validated for this method. TSHon 12-24-2020 TSH Qn 2.30 m[IU]/L Normal 0.44 - 3.98 [facility] Comment on above: Result Comment: TSH testing is performed using different testing methodology at [facility] than at other [facility]. Direct result comparisons should only be made within the same method. Performed By: #### T SH2 #### [address] [address] TSH - Thyroid Stimulating Ho rmone, Serumon 12-24-2020 TSH Qn 2.30 m[IU]/L See Below [employer] Work Phone: Comment on above: Reference Range: 0.4 4 - 3.98 TSH testing is performed using different testing methodology at [facility] than at other [facility]. Direct result comparisons should only be made within the same method. Tobacco Screening.on 021 Fall risk assessment a) No falls within the last year [employer] Work Phone: Tobacco use status [facility] b) No [employer] Work Phone: CBCon 08-14-2020 Erythrocyte distribution width (RBC) [Ratio] 13.2 % Normal 11.5 - 14.5 [facility] Comment on above: Performed By: #### C BC #### [address] [address] Hematocrit (Bld) [Volume fraction] 39.5 % Normal 36.0 - 46.0 [facility] Comment on above: Performed By: #### C BC #### [address] [address] Hemoglobin (Bld) [Mass/Vol] 13.0 g/dL Normal 12.0 - 16.0 [facility] Comment on above: Performed By: #### C BC #### [address] [address] MCHC (RBC) [Mass/Vol] 32.9 g/dL Normal 32.0 - 36.0 [facility] Comment on above: Performed By: #### C BC #### [address] [address] MCV (RBC) [Entitic vol] 91 fL Normal 80 - 100 [facility] Comment on above: Performed By: #### C BC #### [address] [address] NUCLEATED RBC 0.0 /100 WBC Normal 0.0 - 0.0 [facility] Comment on above: Performed By: #### C BC #### [address] [address] Platelets (Bld) [#/Vol] 235 10*3/uL Normal 150 - 450 [facility] Comment on above: Performed By: #### C BC #### [address] [address] RBC 4.33 x10E12/L Normal 4.00 - 5.20 [facility] Comment on above: Performed By: #### C BC #### [address] [address] WBC (Bld) [#/Vol] 5.8 10*3/uL Normal 4.4 - 11.3 [facility] Comment on above: Performed By: #### C BC #### [address] [address] COMPREHENSIVE PANELon 2020 Albumin [Mass/Vol] 4.7 g/dL Normal 3.4 - 5.0 [facility] Comment on above: Performed By: #### C MP #### [address] [address] ALP [Catalytic activity/Vol] 53 U/L Normal 33 - 110 [facility] Comment on above: Performed By: #### C MP #### [address] [place] [address] ALT [Catalytic activity/Vol] 41 U/L Normal 7 - 45 [facility] Comment on above: Result Comment: Desiree ents treated with Sulfasalazine may generate falsely decreased results for ALT. Performed By: #### C MP #### [address] [place] [address] Anion gap [Moles/Vol] 10 mmol/L Normal 10 - 20 [facility] Comment on above: Performed By: #### C MP #### [address] [place] [address] AST [Catalytic activity/Vol] 27 U/L Normal 9 - 39 [facility] Comment on above: Performed By: #### C MP #### [address] [place] [address] Bilirubin [Mass/Vol] 0.6 mg/dL Normal 0.0 - 1.2 [facility] Comment on above: Performed By: #### C MP #### [address] [address] Calcium [Mass/Vol] 9.5 mg/dL Normal 8.6 - 10.3 [facility] Comment on above: Performed By: #### C MP #### [address] [place] [address] Chloride [Moles/Vol] 105 mmol/L Normal 98 - 107 [facility] [place] Comment on above: Performed By: #### C MP #### [address] [place] [address] Creatinine [Mass/Vol] 0.93 mg/dL Normal 0.50 - 1.05 [facility] Comment on above: Performed By: #### C MP #### [address] [place] [address] GFR- AM. >60 Normal >60 [facility] [place] Comment on above: Result Comment: CALC ULATIONS OF ESTIMATED GFR ARE PERFORMED USING THE MDRD STUDY EQUATION FOR THE IDMS-TRACEABLE CREATININE METHODS. CLIN CHEM 2007;53:766-72 Performed By: #### C MP #### [address] [address] GFR-NON AM. >60 Normal >60 [facility] [place] Comment on above: Performed By: #### C MP #### [address] [address] Glucose [Mass/Vol] 94 mg/dL Normal 74 - 99 [facility] [place] Comment on above: Performed By: #### C MP #### [address] [address] HCO3 (Bld) [Moles/Vol] 28 mmol/L Normal 21 - 32 [facility] Comment on above: Performed By: #### C MP #### [address] [address] Potassium [Moles/Vol] 4.4 mmol/L Normal 3.5 - 5.3 [facility] [place] Comment on above: Performed By: #### C MP #### [address] [address] Protein [Mass/Vol] 7.3 g/dL Normal 6.4 - 8.2 [facility] [place] Comment on above: Performed By: #### C MP #### [address] [address] Sodium [Moles/Vol] 139 mmol/L Normal 136 - 145 [facility] [place] Comment on above: Performed By: #### C MP #### [address] [address] Urea nitrogen [Mass/Vol] 13 mg/dL Normal 6 - 23 [facility] [place] Comment on above: Performed By: #### C MP #### [address] [address] Hematologyon 08-14-2020 Hematocrit (Bld) [Volume fraction] 39.5 % See Below MP-Ne[facility] [place] Work Phone: Comment on above: Reference Range: 36. 0 - 46.0 Hemoglobin (Bld) [Mass/Vol] 13.0 g/dL See Below MP-Neurology -[facility] DO Work Phone: Comment on above: Reference Range: 12. 0 - 16.0 MCV (RBC) [Entitic vol] 91 fL 80 - 100 -Neurology -[place] [facility] DO Work Phone: Platelets (Bld) [#/Vol] 235 {x10E9/L} 150 - 450 -Neurology -[facility] [facility] DO Work Phone: RBC (Bld) [#/Vol] 4.33 {x10E12/L} See Below -Neurology -[place] [facility] DO Work Phone: Comment on above: Reference Range: 4.0 0 - 5.20 WBC (Bld) [#/Vol] 5.8 {x10E9/L} 4.4 - 11.3 -N eurology -[place] [facility] DO Work Phone: WBC (Bld) [#/Vol] 0.0 {/100_WBC} 0.0 - 0.0 - Neurology -[place] [facility] DO Work Phone: LAMOTRIGINE- LAMICTALon - LAMOTRIGINE- LAMICTAL 6.4 ug/mL Normal 2.5 - 15.0 [facility] [place] Comment on above: Performed By: #### L AMOT #### [facility] [address] [address] Lamotrigine Level, Serumon 0 08-14-2020 Lamotrigine [Mass/Vol] 6.4 ug/mL 2.5 - 15.0 -Neurology -[place] [facility] DO Work Phone: Metabolic Panelon 08-14-2020 ALP [Catalytic activity/Vol] 53 U/L 33 - 110 -Neurology -[place] [facility] DO Work Phone: Anion gap [Moles/Vol] 10 mmol/L 10 - 20 MP- Neurology -[place] [facility] DO Work Phone: Bilirubin [Mass/Vol] 0.6 mg/dL 0.0 - 1.2 MP-N eurology -[facility] [facility] DO Work Phone: Calcium [Mass/Vol] 9.5 mg/dL 8.6 - 10.3 MP-Jozef rology -[place] [facility] DO Work Phone: Chloride [Moles/Vol] 105 mmol/L 98 - 107 MP-N eurology -[place] [facility] DO Work Phone: CO2 [Moles/Vol] 28 mmol/L 21 - 32 MP-Neurol ogy -[place] [facility] DO Work Phone: Creatinine [Mass/Vol] 0.93 mg/dL See Below MP- Neurology -[place] [facility] DO Work Phone: Comment on above: Reference Range: 0.5 0 - 1.05 Glucose [Mass/Vol] 94 mg/dL 74 - 99 MP-Jozef rology -[place] [facility] DO Work Phone: Potassium [Moles/Vol] 4.4 mmol/L 3.5 - 5.3 MP- Neurology -[facility] [facility] DO Work Phone: Protein [Mass/Vol] 7.3 g/dL 6.4 - 8.2 MP-Jozef rology -[place] [facility] DO Work Phone: Sodium [Moles/Vol] 139 mmol/L 136 - 145 MP-Jozef rology -[place] [facility] DO Work Phone: Urea nitrogen [Mass/Vol] 13 mg/dL 6 - 23 MP-Neurology -[facility] [place] DO Work Phone: Otheron 08-14-2020 Albumin BCP dye [Mass/Vol] 4.7 g/dL 3.4 - 5.0 -Neurology -[facility] [facility] DO Work Phone: ALT With P-5'-P [Catalytic activity/Vol] 41 U/L 7 - 45 -Neurology -[place] [facility] DO Work Phone: Comment on above: Patients treated wit h Sulfasalazine may generate falsely decreased results for ALT. AST With P-5'-P [Catalytic activity/Vol] 27 U/L 9 - 39 -[facility] DO Work Phone: Erythrocyte distribution width (RBC) [Ratio] 13.2 % See Below [facility] DO Work Phone: Comment on above: Reference Range: 11. 5 - 14.5 MCHC (RBC) [Mass/Vol] 32.9 g/dL See Below [facility] DO Work Phone: Comment on above: Reference Range: 32. 0 - 36.0 >60 >60 [facility] DO Work Phone: Comment on above: CALCULATIONS OF MICHAEL MATED GFR ARE PERFORMED USING THE MDRD STUDY EQUATION FOR THE IDMS-TRACEABLE CREATININE METHODS. CLIN CHEM 2007;53:766-72 MRI BRAIN [facility] CONTRASTon There are no acute intracranial changes, no evidence of ischemia or hemorrhage. There are no regions of signal abnormality. There are no areas of abnormal enhancement after contrast administration. [facility] [place] EXAMINATION: MRI BRA IN W WO CONTRAST [...] The calvarium and soft tissues are unremarkable. [place], [place], Chpo Incoming Radiant Results From [email or web address] - 05/09/2020 3:02 PM EDT EXAMINATION: MRI [...] areas of abnormal enhancement after contrast administration. [place] MRI BRAIN W WO CONTRAST EXAMINATION: [...] David Winter MD 05/09/20 Final result Normal [facility] CBC With Platelet and Differ entialon 04-19-2020 Basophils (Bld) [#/Vol] 0.1 10*3/uL Normal 0.0-0.2 [facility] Comment on above: Performed By: #### C BCWD #### [facility] [address] [place] [address] Basophils/100 WBC (Bld) 0.4 % Normal [facility] Comment on above: Performed By: #### C BCWD #### [facility] [address] [place] [address] Eosinophils (Bld) [#/Vol] 0.5 10*3/uL Normal 0.0-0.7 [facility] Comment on above: Performed By: #### C BCWD #### [facility] [address] [place] [address] Eosinophils/100 WBC (Bld) 4.2 % Normal [facility] Comment on above: Performed By: #### C BCWD #### [facility] [address] [place] [address] Erythrocyte distribution width (RBC) [Ratio] 12.5 % Normal 11.5-14.5 [facility] Comment on above: Performed By: #### C BCWD #### [facility] [address] [place] [address] Hematocrit (Bld) [Volume fraction] 39.4 % Normal 37.0-47.0 [facility] Comment on above: Performed By: #### C BCWD #### [facility] [address] [place] [address] Hemoglobin (Bld) [Mass/Vol] 13.3 g/dL Normal 12.0-16.0 [facility] Comment on above: Performed By: #### C BCWD #### [facility] [address] [place] [address] Lymphocytes (Bld) [#/Vol] 3.2 10*3/uL Normal 1.0-4.8 [facility] Comment on above: Performed By: #### C BCWD #### [facility] [address] [place] [address] Lymphocytes/100 WBC (Bld) 26.9 % Normal [facility] Comment on above: Performed By: #### C BCWD #### [facility] [address] [place] [address] MCH (RBC) [Entitic mass] 29.8 pg Normal 27.0-31.3 [facility] Comment on above: Performed By: #### C BCWD #### [facility] [address] [place] [address] MCHC (RBC) [Mass/Vol] 33.8 % Normal 33.0-37.0 [facility] Comment on above: Performed By: #### C BCWD #### [facility] [address] [place] [address] MCV (RBC) [Entitic vol] 88.4 fL Normal 82.0-100.0 [facility] Comment on above: Performed By: #### C BCWD #### [facility] [address] [place] [address] Monocytes (Bld) [#/Vol] 0.8 10*3/uL Normal 0.2-0.8 [facility] Comment on above: Performed By: #### C BCWD #### [facility] [address] [place] [address] Monocytes/100 WBC (Bld) 6.8 % Normal [facility] Comment on above: Performed By: #### C BCWD #### [facility] [address] [place] [address] Neutrophils (Bld) [#/Vol] 7.3 10*3/uL Critically high 1.4-6.5 [facility] Comment on above: Performed By: #### C BCWD #### [facility] [address] [place] [address] Neutrophils/100 WBC (Bld) 61.7 % Normal [facility] Comment on above: Performed By: #### C BCWD #### [facility] [address] [place] [address] Platelets (Bld) [#/Vol] 314 10*3/uL Normal 130-400 [facility] Comment on above: Performed By: #### C BCWD #### [facility] [address] [place] [address] RBC (Bld) [#/Vol] 4.45 10*6/uL Normal 4.20-5.40 [facility] Comment on above: Performed By: #### C BCWD #### [facility] [address] [place] [address] WBC (Bld) [#/Vol] 11.9 10*3/uL Critically high 4.8-10.8 [facility] Comment on above: Performed By: #### C BCWD #### [facility] [address] [place] [address] CT HEAD WO CONTRASTon 2019 CT HEAD [...] Jayce De Jesus DO Signed by: Jayce DeJ esus DO 04/19/20 Final result Normal [facility] Comprehensive Metabolic Pane crescencio 04-19-2020 Albumin [Mass/Vol] 4.9 g/dL Critically high 3.5-4.6 M [facility] Comment on above: Performed By: #### C MP #### [facility] [address] [place] [address] ALP [Catalytic activity/Vol] 40 U/L Normal 40-130 [facility] Comment on above: Performed By: #### C MP #### [facility] [address] [place] [address] ALT [Catalytic activity/Vol] 17 U/L Normal 0-33 [facility] Comment on above: Performed By: #### C MP #### [facility] [address] [place] [address] Anion gap [Moles/Vol] 14 mmol/L Normal 9-15 [facility] Comment on above: Performed By: #### C MP #### [facility] [address] [place] [address] AST [Catalytic activity/Vol] 17 U/L Normal 0-35 [facility] Comment on above: Performed By: #### C MP #### [facility] [address] [place] [address] Bilirubin [Mass/Vol] mg/dL Normal 0.2-0.7 [facility] Comment on above: Performed By: #### C MP #### [facility] [address] [place] [address] Calcium [Mass/Vol] 10.0 mg/dL Critically high 8.5-9.9 M [facility] Comment on above: Performed By: #### C MP #### [facility] [address] [place] [address] Chloride [Moles/Vol] 101 mmol/L Normal 95-107 [facility] Comment on above: Performed By: #### C MP #### [facility] [address] [place] [address] CO2 [Moles/Vol] 24 mmol/L Normal 20-31 [facility] Comment on above: Performed By: #### C MP #### [facility] [address] [place] [address] Creatinine [Mass/Vol] 0.87 mg/dL Normal 0.50-0.90 [facility] Comment on above: Performed By: #### C MP #### [facility] [address] [place] [address] GFR/1.73 sq M predicted among blacks MDRD (S/P/Bld) [Vol rate/Area] mL/min/{1.73_m2} Normal >60 [facility] Comment on above: Result Comment: >60 mL/min/1.73m2 EGFR, calc. for ages 18 and older using the MDRD formula (not corrected for weight), is valid for stable renal function. Performed By: #### C MP #### [facility] [address] [place] [address] GFR/1.73 sq M.predicted MDRD (S/P/Bld) [Vol rate/Area] mL/min/{1.73_m2} Normal >60 [facility] Comment on above: Result Comment: >60 mL/min/1.73m2 EGFR, calc. for ages 18 and older using the MDRD formula (not corrected for weight), is valid for stable renal function. Performed By: #### C MP #### [facility] [address] [place] [address] Globulin (S) [Mass/Vol] 3.1 g/dL Normal 2.3-3.5 [facility] Comment on above: Performed By: #### C MP #### [facility] [address] [place] [address] Glucose [Mass/Vol] 94 mg/dL Normal 70-99 [facility] Comment on above: Performed By: #### C MP #### [facility] [address] [place] [address] Potassium [Moles/Vol] 3.9 mmol/L Normal 3.4-4.9 [facility] Comment on above: Performed By: #### C MP #### [facility] [address] [place] [address] Protein [Mass/Vol] 8.0 g/dL Normal 6.3-8.0 [facility] Comment on above: Performed By: #### C MP #### [facility] [address] [place] [address] Sodium [Moles/Vol] 139 mmol/L Normal 135-144 [facility] Comment on above: Performed By: #### C MP #### [facility] [address] [place] [address] Urea nitrogen [Mass/Vol] 12 mg/dL Normal 6-20 [facility] Comment on above: Performed By: #### C MP #### [facility] [address] [place] [address] Lactic Acidon 04-19-2020 Lactate [Moles/Vol] 1.8 mmol/L Normal 0.5-2.2 [facility] Comment on above: Performed By: #### L ACID #### [facility] [address] [place] [address] Prolactinon 04-19-2020 Prolactin 160.8 ng/mL Normal [facility] Comment on above: Result Comment: Defa ult Normal Ranges Female Male Non: 4.8-23.3 4.0-15.2 Performed By: #### P JAISON #### [facility] [address] [place] [address] Serum HCG Qualitativeon HCG.beta subunit Qn Negative Normal [facility] Comment on above: Performed By: #### S HCG #### [facility] [address] [place] [address] Urinalysis, reflex to cultur emily 04-19-2020 Urine Reflexed to Culture Not Indicated Normal [facility] Comment on above: Performed By: #### U AR #### [facility] [address] [place] [address] Bilirubin Ql (U) Negative Normal Negative [facility] Comment on above: Performed By: #### U AR #### [facility] [address] [place] [address] Clarity (U) Clear Normal Clear [facility] Comment on above: Performed By: #### U AR #### [facility] [address] [place] [address] Color (U) Yellow Normal Straw/Ada [facility] Comment on above: Performed By: #### U AR #### [facility] [address] [place] [address] Glucose Ql (U) Negative Normal Negative [facility] Comment on above: Performed By: #### U AR #### [facility] [address] [place] [address] Hemoglobin Ql (U) Trace-intact Normal Negative [facility] Comment on above: Performed By: #### U AR #### [facility] [address] [place] [address] Ketones Ql (U) Negative Normal Negative [facility] Comment on above: Performed By: #### U AR #### [facility] [address] [place] [address] Leukocyte esterase Test strip Ql (U) Negative Normal Negative [facility] Comment on above: Performed By: #### U AR #### [facility] [address] [place] [address] Nitrite Ql (U) Negative Normal Negative [facility] Comment on above: Performed By: #### U AR #### [facility] [address] [place] [address] pH (U) 6.0 [pH] Normal 5.0-9.0 [facility] Comment on above: Performed By: #### U AR #### [facility] [address] [place] [address] Protein Ql (U) Negative Normal Negative [facility] Comment on above: Performed By: #### U AR #### [facility] [address] [place] [address] Specific gravity (U) [Rel density] 1.020 Normal 1.005-1.03 [facility] Comment on above: Performed By: #### U AR #### [facility] [address] [place] [address] Urobilinogen Qn (U) 0.2 {Alan'U}/dL Normal < 2.0 [facility] Comment on above: Performed By: #### U AR #### [facility] [address] [place] [address] Urine Microscopicon 04-19-20 20 Epithelial cells LM Ql (Urine sed) 0-2 Normal [facility] Comment on above: Performed By: #### U ARELY #### [facility] [address] [place] [address] RBC (U) [#/Vol] 0-2 Normal 0-2 [facility] Comment on above: Performed By: #### U ARELY #### [facility] [address] [place] [address] WBC (U) [#/Vol] 0-2 Normal 0-5 [facility] Comment on above: Performed By: #### U ARELY #### [facility] [address] [place] [address] CBC Auto Differentialon 10-0 1-2020 Basophils (Bld) [#/Vol] 0.1 10*3/uL 0 - 0.2 K/uL [place] Basophils/100 WBC (Bld) 0.4 % [place] Eosinophils (Bld) [#/Vol] 0.5 10*3/uL 0 - 0.7 K/uL [place] Eosinophils/100 WBC (Bld) 4.2 % [place] Erythrocyte distribution width (RBC) [Ratio] 12.5 % 11.5 - 14.5 % [place] Hematocrit (Bld) [Volume fraction] 39.4 % 37 - 47 % [place] Hemoglobin (Bld) [Mass/Vol] 13.3 g/dL 12 - 16 g/dL [place] Interpretation and review of laboratory results Abnormal [place] Lymphocytes (Bld) [#/Vol] 3.2 10*3/uL 1 - 4.8 K/uL [place] Lymphocytes/100 WBC (Bld) 26.9 % [place] MCH (RBC) [Entitic mass] 29.8 pg 27 - 31.3 pg [place] MCHC (RBC) [Mass/Vol] 33.8 % 33 - 37 % [place] MCV (RBC) [Entitic vol] 88.4 fL 82 - 100 fL [place] Monocytes (Bld) [#/Vol] 0.8 10*3/uL 0.2 - 0.8 K/uL [place] Monocytes/100 WBC (Bld) 6.8 % [place] Neutrophils Absolute 7.3 K/uL High 1.4 - 6.5 K/uL [place] Neutrophils/100 WBC (Bld) 61.7 % [place] Platelets (Bld) [#/Vol] 314 10*3/uL 130 - 400 K/uL [place] RBC (Bld) [#/Vol] 4.45 10*6/uL [place] WBC (Bld) [#/Vol] 11.9 10*3/uL High 4.8 - 10.8 K/uL [place] Comprehensive Metabolic Pane crescencio 04-18-2020 Albumin [Mass/Vol] 4.9 g/dL High 3.5 - 4.6 g/dL [place] ALP [Catalytic activity/Vol] 40 U/L 40 - 130 U/L [place] ALT [Catalytic activity/Vol] 17 U/L 0 - 33 U/L [place] Anion gap [Moles/Vol] 14 mmol/L [place] AST [Catalytic activity/Vol] 17 U/L 0 - 35 U/L [place] Bilirubin Ql (U) <0.2 0.2 - 0.7 mg/dL [place] Calcium [Mass/Vol] 10.0 mg/dL High 8.5 - 9.9 mg/dL [place] Chloride [Moles/Vol] 101 mmol/L [place] CO2 [Moles/Vol] 24 mmol/L [place] Creatinine [Mass/Vol] 0.87 mg/dL 0.5 - 0.9 mg/dL [place] GFR >60.0 >60 [place] Comment on above: >60 mL/min/1.73m2 EG FR, calc. for ages 18 and older using the MDRD formula (not corrected for weight), is valid for stable renal function. GFR Non- >60.0 >60 [place] Comment on above: >60 mL/min/1.73m2 EG FR, calc. for ages 18 and older using the MDRD formula (not corrected for weight), is valid for stable renal function. Globulin (S) [Mass/Vol] 3.1 g/dL 2.3 - 3.5 g/dL [place] Glucose [Mass/Vol] 94 mg/dL 70 - 99 mg/dL [place] Interpretation and review of laboratory results Abnormal [place] Potassium [Moles/Vol] 3.9 mmol/L [place] Protein [Mass/Vol] 8.0 g/dL 6.3 - 8 g/dL [place] Sodium [Moles/Vol] 139 mmol/L [place] Urea nitrogen [Mass/Vol] 12 mg/dL 6 - 20 mg/dL [place] HCG Qualitative, Serumon hCG Qual Negative [place] Lactic Acid, Plasmaon 2019 Lactate [Moles/Vol] 1.8 mmol/L 0.5 - 2. 2 mmol/L [place] Microscopic Urinalysison Epithelial Cells, UA 0-2 /HPF [place] RBC (U) [#/Vol] 0-2 [place] WBC, UA 0-2 [place] Urine Reflex to Cultureon Bilirubin Urine Negative Negative [place] Blood, Urine Trace-intact Negative [place] Clarity, UA Clear Clear [place] Color, UA Yellow Straw/Yellow [place] Glucose, Ur Negative Negative mg/dL [place] Ketones Ql (U) Negative Negative mg/dL [place] Leukocyte esterase Test strip Ql (U) Negative Negative [place] Nitrite, Urine Negative Negative [place] pH, UA 6.0 [place] Protein (U) [Mass/Vol] Negative Negative mg/d L [place] Specific [place], UA 1.020 [place] Urine Reflex to Culture Not Indicated [place] Urobilinogen, Urine 0.2 <2.0 E.U./dL [place] ECHOCARDIOGRAPHY REPORT (HL) on 05-10-2017 ECHOCARDIOGRAPHY REPORT (HL) PRINCESS CANTU [id number] 179.6F [id number] VASCULAR LABReferring: Koffi Uriarte A.Reading: EVA GARCIAZ Transthora cic EchocardiogramECHOALL - ECHO COMPLETE WITH 2D M MODE DOP CLR (1)CHEST PAIN: 126/76Chambers MMAo root diameter (MM) 2.6 cmAV cusp separation (MM) 1.9 cmChambers 2DRVIDd 2D 2.78 cmIVSd (2D) 0.824 cmLVPWd (2D) 1.02 cmLVIDd (2D) 4.14 cmLVIDs (2D) 2.93 cmLA dimension 2D 3 cmVolumes/MassLA Area 2 CH 13.5 cm2LA Area 4 CH 16.1 cm2LA Volume Indexed 21.05 ml/m5Etxqweits/Systoli c FunctionMV E-wave Vmax 0.884 m/secMV deceleration time 193 msecMV A-wave Vmax 0.494 m/secLV septal e' Vmax 0.115 m/secLV lateral e' Vmax 0.189 m/secLV E:e' septal ratio 7.7 ratio [facility] PRINCESS CANTU [id number] [place] [address] [id number] 93Jackie Uriarte MDECHOCARDIOGRAPHY REPORTLV E:e' lateral ratio [...] [facility] PRINCESS CANTU [id number] [place] [address] [id number] 93Jackie Uriarte MDECHOCARDIOGRAPHY REPORTPericardium:Ther e is no [...] [facility] PRINCESS CANTU [id number] [place] [address] [id number] 93Jackie Uriarte MDECHOCARDIOGRAPHY REPORT Normal [facility] BASIC METABOLIC PANELon 04-18 Anion gap 10 mmol/L Normal 6-18 [facility] Comment on above: Order Comment: Is pa tient fasting? YES Performed By: #### L BMP, LGFRP ####[facility] [id number] [place] [address] Calcium 9.6 mg/dL Normal 8.6-10.3 [facility] Comment on above: Order Comment: Is pa tient fasting? YES Performed By: #### L BMP, LGFRP ####[facility] [id number] [place] [address] Chloride 101 mmol/L Normal 98-107 [facility] Comment on above: Order Comment: Is pa tient fasting? YES Performed By: #### L BMP, LGFRP ####[facility] [id number] [place] [address] CO2 27 mmol/L Normal 21-32 [facility] Comment on above: Order Comment: Is pa tient fasting? YES Performed By: #### L BMP, LGFRP ####[facility] [id number] [place] [address] Creatinine 0.74 mg/dL Normal 0.5-1.05 [facility] Comment on above: Order Comment: Is pa tient fasting? YES Performed By: #### L BMP, LGFRP ####[facility] [address] [place] [address] Glucose mass conc 82 mg/dL Normal 74-99 [facility] Comment on above: Order Comment: Is pa tient fasting? YES Performed By: #### L BMP, LGFRP ####[facility] [id number] [place] [address] Potassium molar conc 4.1 mmol/L Normal 3.5-5.3 [facility] Comment on above: Order Comment: Is pa tient fasting? YES Performed By: #### L BMP, LGFRP ####[facility] [id number] [place] [address] Sodium 134 mmol/L Low 136-145 [facility] Comment on above: Order Comment: Is pa tient fasting? YES Performed By: #### L BMP, LGFRP ####[facility] [id number] [place] [address] Urea nitrogen 14 mg/dL Normal 6-23 [facility] Comment on above: Order Comment: Is pa tient fasting? YES Performed By: #### L BMP, LGFRP ####[facility] [id number] [place] [address] CBC AUTOon 05-04-2017 Erythrocyte distribution width Auto Ratio (RBC) 12.8 % Normal 11.5-14.5 [facility] Comment on above: Performed By: #### L CBC ####[facility] [id number] [address] [place], [place] [id number] Erythrocytes (RBC) 4.65 10*6/uL Normal 3.5-5.5 [facility] Comment on above: Performed By: #### L CBC ####[facility] [id number] [place], [place] [id number] Hematocrit (HCT) 41.1 % Normal 36.0-48.0 [facility] Comment on above: Performed By: #### L CBC ####[facility] [id number] [place] [id number] Hemoglobin mass conc (Bld) 13.8 g/dL Normal 12.0-15.0 [facility] Comment on above: Performed By: #### L CBC ####[facility] [address] [place] [address] MCH 29.7 pg Normal 25.4-34.6 [facility] Comment on above: Performed By: #### L CBC ####[facility] [address] [place] [address] MCHC mass conc (RBC) 33.6 g/dL Normal 30.0-36.0 [facility] Comment on above: Performed By: #### L CBC ####[facility] Dabfpvcjka82265 [place] [address] MCV 88.4 fL Normal 79.0-98.0 [facility] Comment on above: Performed By: #### L CBC ####[facility] Tkbpxqcnhi07000 [place] [address] Platelet mean volume (PMV) 9.3 fL Normal 8.4-11.9 [facility] Comment on above: Performed By: #### L CBC ####[facility] Aqsebvpyip62259 [place] [address] Platelets 277 10*3/uL Normal 140-440 [facility] Comment on above: Performed By: #### L CBC ####[facility] Buphcqyntw64847 [place] [address] WBC (Leukocytes) 6.1 10*3/uL Normal 3.9-11.0 [facility] Comment on above: Performed By: #### L CBC ####[facility] Hyummbrvdo29913 [place] [address] GLOMERULAR FILTRATION RATE [facility] eGFR (non-black) mL/min/{1.73_m2} Normal > 60 [facility] Comment on above: Order Comment: Is pa tient fasting? YES Performed By: #### L BMP, LGFRP ####[facility] Musvmynoai99408 [place] [address] IF AMER > 90 Normal > 60 [facility] [place] [place] Comment on above: Order Comment: Is pa tient fasting? YES Result Comment: Effe ctive 12/12/14:CKD-EPI equation / based on IDMS traceable creatinine.Continue to use the CREAT CLR-DOSE ([place]groft-Gault)value for determining medication dose. Performed By: #### L BMP, LGFRP ####[facility] Z[address]ffahe75859 [place] [address] Vital Signs Date Time Vital Sign Value Performing Clinician Yael murguia 03-07-2025 15:39-0400 Body mass index (BMI) [Ratio] 26.26 kg/m2 Roula VILLEDA Work Phone: [facility] 03-07-2025 15:39-0400 Body weight 80.65 kg Roula VILLEDA Work Phone: [facility] 03-07-2025 15:39-0400 Diastolic blood pressure 70 mm[Hg] Roula Mitchel PA Work Phone: [facility] 03-07-2025 15:39-0400 Systolic blood pressure 110 mm[Hg] Roula Mitchel PA Work Phone: [facility] 02-07-2025 15:09-0400 Body mass index (BMI) [Ratio] 26.11 kg/m2 Willis April DO Work Phone: [facility] 02-07-2025 15:09-0400 Body weight 80.2 kg Willis April DO Work Phone: [facility] 02-07-2025 15:09-0400 Diastolic blood pressure 74 mm[Hg] Willis April DO Work Phone: [facility] 02-07-2025 15:09-0400 Systolic blood pressure 114 mm[Hg] Willis April DO Work Phone: [facility] 02-01-2025 09:35-0400 Body mass index (BMI) [Ratio] 25.92 kg/m2 Roula Grullon PA Work Phone: [facility] 02-01-2025 09:35-0400 Body weight 79.61 kg Roula Mitchel PA Work Phone: [facility] 02-01-2025 09:35-0400 Diastolic blood pressure 82 mm[Hg] Roula Grullon PA Work Phone: [facility] 02-01-2025 09:35-0400 Systolic blood pressure 118 mm[Hg] Roula Mitchel PA Work Phone: [facility] 01-12-2025 11:56-0400 Body mass index (BMI) [Ratio] 26.55 kg/m2 April Ob [facility] 01-12-2025 11:56-0400 Body weight 81.56 kg April Ob [facility] 09-12-2024 12:28-0500 Body height 175.3 cm Koffi Uriarte MD Work Phone: [facility] 09-12-2024 12:28-0500 Body mass index (BMI) [Ratio] 27.06 kg/m2 Koffi Uriarte MD Work Phone: [facility] 09-12-2024 12:28-0500 Body temperature 97.3 [degF] Koffi Uriarte MD Work Phone: [facility] 09-12-2024 12:28-0500 Body weight 83.12 kg Koffi Uriarte MD Work Phone: [facility] 09-12-2024 12:28-0500 Diastolic blood pressure 96 mm[Hg] Koffi Uriarte MD Work Phone: [facility] 09-12-2024 12:28-0500 Heart rate 71 /min Koffi Uriarte MD Work Phone: [facility] 09-12-2024 12:28-0500 Systolic blood pressure 122 mm[Hg] Koffi Uriarte MD Work Phone: [facility] 05-03-2024 09:18-0400 Body height 175.3 cm Nedra Calderon MD Work Phone: [facility] 05-03-2024 09:18-0400 Body mass index (BMI) [Ratio] 28.15 kg/m2 Nedra Calderon MD Work Phone: [facility] 05-03-2024 09:18-0400 Body temperature 96.91 [degF] Nedra Calderon MD Work Phone: [facility] 05-03-2024 09:18-0400 Body weight 86.46 kg Nedra Calderon MD Work Phone: [facility] 05-03-2024 09:18-0400 Diastolic blood pressure 82 mm[Hg] Nedra Calderon MD Work Phone: [facility] 05-03-2024 09:18-0400 Heart rate 67 /min Nedra Calderon MD Work Phone: [facility] 05-03-2024 09:18-0400 Systolic blood pressure 136 mm[Hg] Nedar Calderon MD Work Phone: [facility] 11-09-2023 15:27-0400 Body height 175.26 cm [facility] 11-09-2023 15:27-0400 Body mass index (BMI) [Ratio] 28.2 kg/m2 [facility] 11-09-2023 15:27-0400 Body temperature 98.1 [degF] [facility] 11-09-2023 15:27-0400 Body weight 86.74 kg [facility] 11-09-2023 15:27-0400 Heart rate 63 /min [facility] 11-09-2023 15:27-0400 Respiratory rate 18 /min [facility] 11-09-2023 15:27-0400 SaO2% (BldA) [Mass fraction] 99 % [facility] 07-31-2022 10:54-0500 Body height 175.26 cm Koffi Clementeson Work Phone: [employer] Work Phone: 07-31-2022 10:54-0500 Body mass index (BMI) [Ratio] 31.01 kg/m2 Koffi Clementeson Work Phone: [employer] Work Phone: 07-31-2022 10:54-0500 Body surface area Derived from formula 2.11 m2 Koffi Uriarte Work Phone: [employer] Work Phone: 07-31-2022 10:54-0500 Body temperature 97.6 [degF] Koffi Uriarte Work Phone: [employer] Work Phone: 07-31-2022 10:54-0500 Body weight 95.26 kg Koffi Uriarte Work Phone: XN-RXBM-Hpwx [place] Work Phone: 07-31-2022 10:54-0500 Diastolic blood pressure 87 mm[Hg] Koffi Uriarte Work Phone: HT-MIAB-Vqrs [place] Work Phone: 07-31-2022 10:54-0500 Heart rate 76 /min Koffi Uriarte Work Phone: FE-KUEU-Fvei [place] Work Phone: 07-31-2022 10:54-0500 Respiratory rate 18 /min Koffi Uriarte Work Phone: XM-BMNT-Mspv [place] Work Phone: 07-31-2022 10:54-0500 Systolic blood pressure 121 mm[Hg] Koffi Uriarte Work Phone: RH-ICWC-Egtn [place] Work Phone: 12-24-2021 11:32-0400 Body height 175.26 cm Koffi Uriarte Work Phone: DT-Vlkvfwkbz-Dssqdl [facility] DO Work Phone: 12-24-2021 11:32-0400 Body mass index (BMI) [Ratio] 31.03 kg/m2 Koffi Uriarte Work Phone: YQ-Ebpgxgvaj-Uajqjq [facility] DO Work Phone: 12-24-2021 11:32-0400 Body surface area Derived from formula 2.11 m2 Koffi Uriarte Work Phone: [facility]dppgt[facility]drm [facility] Work Phone: 12-24-2021 11:32-0400 Body temperature 97.1 [degF] Koffi Uriarte Work Phone: XS-Oyvbaqcuw-Noetcm ke SJW DO Work Phone: 12-24-2021 11:32-0400 Body weight 95.3 kg Koffi Uriarte Work Phone: DT-Dmzkzjnsz-Nqxyop ke SJW DO Work Phone: 12-24-2021 11:32-0400 Diastolic blood pressure 76 mm[Hg] Koffi Uriarte Work Phone: WB-Ifuscrnyz-Gtcswm ke SJW DO Work Phone: 12-24-2021 11:32-0400 Heart rate 54 /min Koffi Uriarte Work Phone: JH-Bbykfglak-Muyuib ke SJW DO Work Phone: 12-24-2021 11:32-0400 SaO2% (BldA) [Mass fraction] 100 % Koffi Uriarte Work Phone: [facility]ws[facility] DO Work Phone: 12-24-2021 11:32-0400 Systolic blood pressure 114 mm[Hg] Koffi Uriarte Work Phone: [facility] DO Work Phone: 11-17-2021 13:08-0400 Body height 172.72 cm Koffi Uriarte Work Phone: BJ-NIFE-[place] Work Phone: 11-17-2021 13:08-0400 Body mass index (BMI) [Ratio] 32.39 kg/m2 Koffi Uriarte Work Phone: EQ-YSAC-Xwld [place] Work Phone: 11-17-2021 13:08-0400 Body surface area Derived from formula 2.1 m2 Koffi Uriarte Work Phone: JP-JBPR-Elsu [place] Work Phone: 11-17-2021 13:08-0400 Body temperature 97 [degF] Koffi Uriarte Work Phone: EW-VYRM-Judl [place] Work Phone: 11-17-2021 13:08-0400 Body weight 96.62 kg Koffi Uriarte Work Phone: UP-PQUN-Uivs [place] Work Phone: 11-17-2021 13:08-0400 Diastolic blood pressure 84 mm[Hg] Koffi Uriarte Work Phone: OK-AQAV-Iieo [place] Work Phone: 11-17-2021 13:08-0400 Heart rate 70 /min Koffi Uriarte Work Phone: EQ-OAYU-Cfwe [place] Work Phone: 11-17-2021 13:08-0400 Respiratory rate 18 /min Koffi Uriarte Work Phone: QD-SUNW-Thbz [place] Work Phone: 11-17-2021 13:08-0400 SaO2% (BldA) [Mass fraction] 96 % Koffi Uriarte Work Phone: CJ-TCLC-Tsvt [place] Work Phone: 11-17-2021 13:08-0400 Systolic blood pressure 126 mm[Hg] Koffi Uriarte Work Phone: RU-FGBB-Myyo [place] Work Phone: 06-25-2021 10:54-0500 Body height 172.72 cm Koffi Uriarte Work Phone: LA-Qeasevruh-Htzmzo ke SJW DO Work Phone: 06-25-2021 10:54-0500 Body mass index (BMI) [Ratio] 32.08 kg/m2 Koffi Uriarte Work Phone: PO-Odiblyzzy-Jygouw ke SJW DO Work Phone: 06-25-2021 10:54-0500 Body surface area Derived from formula 2.09 m2 Koffi Uriarte Work Phone: PM-Yerokighy-Zqnztf ke SJW DO Work Phone: 06-25-2021 10:54-0500 Body temperature 97.1 [degF] Koffi Uriarte Work Phone: TF-Fqonpxzpc-Zjdgkt ke SJW DO Work Phone: 06-25-2021 10:54-0500 Body weight 95.71 kg Koffi Uriarte Work Phone: DN-Yhknhpcba-Xumubv ke SJW DO Work Phone: 06-25-2021 10:54-0500 Diastolic blood pressure 62 mm[Hg] Koffi Uriarte Work Phone: FQ-Ikyvxpvzk-Fphfzj ke SJW DO Work Phone: 06-25-2021 10:54-0500 Heart rate 67 /min Koffi Uriarte Work Phone: NG-Bzqyhrtpp-Cuigrx ke SJW DO Work Phone: 06-25-2021 10:54-0500 Respiratory rate 18 /min Koffi Uriarte Work Phone: OJ-Bpguiyfxq-Giounm ke SJW DO Work Phone: 06-25-2021 10:54-0500 SaO2% (BldA) [Mass fraction] 99 % Koffi Uriarte Work Phone: NB-Vcrlopcdk-Cckwzy ke SJW DO Work Phone: 06-25-2021 10:54-0500 Systolic blood pressure 131 mm[Hg] Koffi Uriarte Work Phone: MF-Vjdcaffjb-Fygvpn ke SJW DO Work Phone: 05-20-2021 15:59-0400 Body height 172.72 cm Koffi Uriarte Work Phone: UV-FMCT-Uqrx [place] Work Phone: 05-20-2021 15:59-0400 Body mass index (BMI) [Ratio] 31.93 kg/m2 Koffi Uriarte Work Phone: SB-RHZQ-Anup [place] Work Phone: 05-20-2021 15:59-0400 Body surface area Derived from formula 2.09 m2 Koffi Uriarte Work Phone: LB-DDSL-Tuai [place] Work Phone: 05-20-2021 15:59-0400 Body temperature 98.1 [degF] Koffi Uriarte Work Phone: NX-DDKM-Wdzj [place] Work Phone: 05-20-2021 15:59-0400 Body weight 95.26 kg Koffi Uriarte Work Phone: UQ-NPMX-Cbmw [place] Work Phone: 05-20-2021 15:59-0400 Diastolic blood pressure 82 mm[Hg] Koffi Uriarte Work Phone: YS-SUWA-Esit [place] Work Phone: 05-20-2021 15:59-0400 Heart rate 72 /min Koffi Uriarte Work Phone: EG-TWVC-Vpey [place] Work Phone: 05-20-2021 15:59-0400 Respiratory rate 16 /min Koffi Uriarte Work Phone: CN-PAVU-Wobn [place] Work Phone: 05-20-2021 15:59-0400 Systolic blood pressure 122 mm[Hg] Koffi Uriarte Work Phone: SJ-FWWI-Toaz [place] Work Phone: 12-24-2020 14:45-0400 Body height 172.72 cm Koffi Uriarte Work Phone: QR-YALZ-Ljsy [place] Work Phone: 12-24-2020 14:45-0400 Body mass index (BMI) [Ratio] 30.71 kg/m2 Koffi Uriarte Work Phone: KM-CCUS-Mmat [place] Work Phone: 12-24-2020 14:45-0400 Body surface area Derived from formula 2.05 m2 Koffi Uriarte Work Phone: PU-XFLV-Qeup [place] Work Phone: 12-24-2020 14:45-0400 Body temperature 97.8 [degF] Koffi Uriarte Work Phone: TW-YOZT-Jlft [place] Work Phone: 12-24-2020 14:45-0400 Body weight 91.63 kg Koffi Uriarte Work Phone: QB-RUKQ-Cnsw [place] Work Phone: 12-24-2020 12:59-0400 Body height 172.72 cm Koffi Uriarte Work Phone: VW-CUGK-Qiwp [place] Work Phone: 12-24-2020 12:59-0400 Body mass index (BMI) [Ratio] 30.71 kg/m2 Koffi Uriarte Work Phone: OW-EGJI-Wido [place] Work Phone: 12-24-2020 12:59-0400 Body surface area Derived from formula 2.05 m2 Koffi Clementeson Work Phone: GO-FRIO-Zani [place] Work Phone: 12-24-2020 12:59-0400 Body temperature 98.2 [degF] Koffi Clementeson Work Phone: TA-TZFJ-Pgnv [place] Work Phone: 12-24-2020 12:59-0400 Body weight 91.63 kg Koffi Uriarte Work Phone: TX-FQLP-Fcwh [place] Work Phone: 12-24-2020 12:59-0400 Diastolic blood pressure 90 mm[Hg] Koffi Uriarte Work Phone: KJ-XGFC-Qwiw [place] Work Phone: 12-24-2020 12:59-0400 Heart rate 75 /min Koffi Uriarte Work Phone: YI-AXFZ-Xund [place] Work Phone: 12-24-2020 12:59-0400 Respiratory rate 16 /min Koffi Uriarte Work Phone: PW-MDVZ-Cyxc [place] Work Phone: 12-24-2020 12:59-0400 Systolic blood pressure 147 mm[Hg] Koffi Uriarte Work Phone: HK-WPKY-Vfxf [place] Work Phone: 08-14-2020 13:26-0500 BMI (Body Mass Index) 29.04 kg/m2 Koffi Uriarte NN-Ocikfgvtr-Fycxlc ke SJW DO Work Phone: 08-14-2020 13:26-0500 [...] (Body Surface Area) 2 m2 Koffi Uriarte UV-Uhhwfplse-Eqvvgj ke SJW DO Work Phone: 08-14-2020 13:26-0500 Height 172.72 cm Koffi Uriarte [facility] Work Phone: 05-28-2020 15:24-0500 BMI (Body Mass Index) 28.59 kg/m2 Koffi Uriarte HO-TEUW-Hbpm [place] Work Phone: 05-28-2020 15:24-0500 Body Temperature 97.6 [degF] Koffi Uriarte PT-UOWX-Acje [place] Work Phone: 05-28-2020 15:24-0500 Body weight 85.28 kg Koffi Uriarte MP-[facility] Work Phone: 05-28-2020 15:24-0500 BP Diastolic 82 mm[Hg] Koffi Uriarte RD-TEBJ-Trwk [place] Work Phone: 05-28-2020 15:24-0500 BP Systolic 122 mm[Hg] Koffi Uriarte AP-XSTM-Miej [place] Work Phone: 05-28-2020 15:24-0500 BSA (Body Surface Area) 1.99 m2 Koffi Uriarte MP-[facility] Work Phone: 05-28-2020 15:24-0500 Height 172.72 cm Koffi Uriarte MP-[facility] Work Phone: 05-28-2020 15:24-0500 Pulse (Heart Rate) 70 /min Koffi Uriarte MP-[facility] Work Phone: 05-28-2020 15:24-0500 Respiratory Rate 18 /min Koffi Uriarte MP-[facility] Work Phone: 04-25-2020 16:01-0400 BMI (Body Mass [...] Phone: 04-19-2020 00:00-0400 BP Diastolic 83 mm[Hg] [facility], [place] 04-19-2020 00:00-0400 BP Systolic 144 mm[Hg] [facility], [place] 04-18-2020 22:17-0400 BMI (Body Mass Index) 28.06 kg/m2 [facility], [place] 04-18-2020 22:17-0400 Body Temperature 98.91 [degF] [facility], [place] 04-18-2020 22:17-0400 Body weight 86.18 kg Tu Wright [facility], [place] 04-18-2020 22:17-0400 Height 175.3 cm Tu Wright [facility], [place] 04-18-2020 22:17-0400 Pulse (Heart Rate) 105 /min Tu Barker [facility], [place] 04-18-2020 22:17-0400 Pulse Oximetry 97 % Tu Wright [facility], [place] 04-18-2020 22:17-0400 Respiratory Rate 16 /min Tu Wright [facility], [place] Encounters Encounter Date Encounter Type Care Provider Facility Start: 03-14-2025 End: 03-14-2025 ambulatory ROULA GRULLON Not Available Start: 03-07-2025 End: 03-07-2025 Patient encounter procedure Roula VILLEDA Work Phone: [facility] Work Phone: Start: 03-07-2025 End: 03-07-2025 flow sheet Ruola VILLEDA Work Phone: [facility] Comment on above: Well woman exam with routine gynecological exam; Second trimester ([facility]); 16 weeks gestation of ([facility]); Vaginal discharge; STD exposure; Screening, , for anatomic survey ([facility]) Start: 03-07-2025 End: 03-07-2025 ambulatory ROULA GRULLON Not Available Start: 03-07-2025 End: 03-07-2025 Bamboo flowsheet Roula VILLEDA Work Phone: [facility] Start: 03-07-2025 End: 03-11-2025 Bamboo flowsheet Roula VILLEDA Work Phone: [facility] Start: 03-07-2025 End: 03-11-2025 Clinisync Result Encounter Roula VILLEDA Work Phone: [facility] External Department Unsolicited Start: 03-07-2025 End: 03-09-2025 External Result Encounter Roula VILLEDA Work Phone: [facility] Unsolicited Start: 02-21-2025 End: 02-21-2025 ambulatory WILLIS APRIL Not Available Start: 02-07-2025 End: 02-07-2025 flow sheet Willis April DO Work Phone: [facility] Comment on above: First trimester preg jyothi ([facility]); 12 weeks gestation of ([facility]); Missed menses; Subchorionic hematoma in second trimester, single or unspecified fetus ([facility]) Start: 02-07-2025 End: 02-07-2025 ambulatory WILLIS APRIL Not Available Start: 02-07-2025 End: 02-07-2025 Bamboo flowsheet Willis April DO Work Phone: [facility] Start: 02-07-2025 End: 02-07-2025 Bamboo flowsheet Willis April DO Work Phone: [facility] Start: 02-01-2025 End: 02-01-2025 Bamboo flowsheet Roula VILLEDA Work Phone: [facility] Start: 02-01-2025 End: 02-01-2025 Bamboo flowsheet Roula VILLEDA Work Phone: [facility] Start: 02-01-2025 End: 02-01-2025 Office outpatient visit 15 minutes Roula VILLEDA Work Phone: [facility] Comment on above: Nausea and vomiting, unspecified vomiting type (Primary Dx); First trimester ([facility]); 11 weeks gestation of ([facility]) Start: 02-01-2025 End: 02-01-2025 ambulatory ROULA GRULLON Not Available Start: 01-22-2025 End: 01-22-2025 Clinisync Result Encounter Willis April DO Work Phone: [facility] External Department Unsolicited Start: 01-22-2025 End: 01-22-2025 Clinisync Result Encounter Willis April DO Work Phone: [facility] External Department Unsolicited Start: 01-12-2025 End: 01-12-2025 Office outpatient visit 5 minutes April Nurse [facility] Comment on above: GA: 8w4d Start: 01-12-2025 End: 01-12-2025 ambulatory ROULA GRULLON Not Available Start: 09-12-2024 End: 09-12-2024 Office outpatient visit 25 minutes Koffi Uriarte MD Work Phone: [facility] Comment on above: Benign essential hyp ertension (Primary Dx); Seizure (Multi); Vitamin B12 deficiency; Fatigue, unspecified type; Well adult health check; Vitamin D deficiency Start: 09-12-2024 End: 09-12-2024 Patient encounter status Koffi Uriarte MD Work Phone: [facility] Work Phone: Start: 09-12-2024 End: 09-12-2024 ambulatory [facility] Ambulatory Start: 09-12-2024 End: 09-12-2024 Encounter for general adult medical examination without abnormal findings [facility] Ambulatory Start: 05-03-2024 End: 05-03-2024 Office outpatient visit 25 minutes Nedra Cadleron MD Work Phone: [facility] Comment on above: Seizure (Multi) (Elenita vernon Dx) Start: 05-03-2024 End: 05-03-2024 ambulatory NEDRA Jha [facility] Ambulatory Start: 04-13-2024 End: 07-12-2024 ambulatory Spenser COLLINS Facility:[facility] Start: 03-30-2024 End: 03-30-2024 ambulatory Vernon PABLO Facility:[facility] Start: 12-15-2023 End: 12-15-2023 ambulatory None Provider Facility:[facility] Start: 11-09-2023 End: 11-09-2023 ambulatory [facility] Work Phone: Start: 11-09-2023 End: 11-09-2023 Patient encounter procedure Counts Include [address] [facility] Work Phone: Start: 08-04-2023 End: 08-04-2023 ambulatory Willis Chen Facility:[facility] Start: 04-30-2023 End: 04-30-2023 Office outpatient visit 15 minutes Nedra Calderon MD Work Phone: [facility] Comment on above: Seizure (CMS/HCC) (P rimary Dx) Start: 11-25-2022 End: 11-26-[address] WILLIS CHEN . Facility:[facility] Start: 11-16-2022 End: 11-17-[address] WILLIS CHEN . Facility:[facility] Start: 07-31-2022 Current tobacco non- user cad cap copd pv dm Koffi Uriarte Work Phone: [employer] Work Phone: Start: 07-31-2022 Periodic preventive med est patient 18-39 yrs Koffi Uriarte Work Phone: [employer] Work Phone: Start: 07-31-[address] Koffi Uriarte Facility:[id number] Start: 04-16-2022 End: 04-17-2022 ambulatory KAVITA SWEET Facility:[facility] Start: 03-24-2022 Telephone encounter Kavita lyons DO Work Phone: OB/Gynecology Comment on above: Bleeding With Pregna ncy Start: 03-24-2022 End: 03-24-2022 Patient encounter procedure Dane Hassan [facility] Start: 03-19-2022 Telephone encounter Georgia Nathan th INTEGRITY ANALYST.MEDICAL SERVICES ASSISTANT Work Phone: CB/Gynecology Comment on above: Appointment Start: 03-18-2022 AUDIT Koffi roper Work Phone: DW-Sfbghmfoz-UomgmqhvWayne MCKENNA DO Work Phone: Start: 02-03-2022 ambulatory Brendan Blankenship PA-C Work Phone: OB/Gynecology Comment on above: Bacteria Vaginosis Start: 01-02-2022 AUDIT Koffi Carlson ardson Work Phone: GO-PVVW-Mgxw [place] Work Phone: Start: 12-24-2021 Office outpatient vi sit 15 minutes Koffi Alison ClementeUriarte Work Phone: CJ-Nafagsifj-Sflpmebh SJW DO Work Phone: Start: 11-17-2021 Office outpatient vi sit 15 minutes Koffi A Uriarte Work Phone: ZV-LSHP-[place]lyd [place] Work Phone: Start: 09-29-2021 AUDIT Koffi Carlson ardson Work Phone: VX-KWQO-Hpdk [place] Work Phone: Start: 09-09-2021 End: 09-09-2021 ambulatory BRENDAN BLANKENSHIP Facility:[facility] Start: 07-04-2021 End: 07-05-2021 ambulatory [facility] Facility:[facility] Start: 07-04-2021 Encounter for gynecological examination (general) (routine) without abnormal findings [facility] Start: 06-25-2021 Office outpatient vi sit 25 minutes Koffi Clementeson Work Phone: HV-Brzpwllax-Henrmtun1d4 Pty DO Work Phone: Start: 05-22-2021 Chart Update Koffi hopkinson Work Phone: TK-ZHLD-Bohg [place] Work Phone: Start: 05-20-2021 Office outpatient vi sit 25 minutes Koffi A Uriarte Work Phone: XV-KLSY-Bhcd [place] Work Phone: Start: 05-20-2021 Patient encounter procedure Koffi Alison ClementeUriarte Work Phone: GN-XBIM-Phfh [place] Work Phone: Start: 03-28-2021 AUDIT Koffi roper Work Phone: SI-XIPG-[place]yk [place] Work Phone: Start: 12-24-2020 Chart Update Koffi hopkinson Work Phone: UK-LRWG-Bdgg [place] Work Phone: Start: 12-24-2020 Office outpatient vi sit 25 minutes Koffi Uriarte Work Phone: PH-WZPV-Coaa [place] Work Phone: Start: 08-14-2020 Patient encounter procedure Koffi Uriarte ZR-Dhokrbgwn-Arxdigrg SJW DO Work Phone: Start: 06-11-2020 Patient encounter procedure Koffi Uriarte AI-Lrhenhbjk-Icvepebi SJW DO Work Phone: Start: 05-28-2020 Patient encounter procedure Koffi Uriarte ZU-MLBN-Nbnv [place] Work Phone: Start: 05-09-2020 End: 05-12-2020 Patient encounter procedure SPIKE RADHA [facility] Start: 05-09-2020 End: 05-11-2020 Subsequent hospital visit by physician Madeline Frey 1 EEG Comment on above: 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) Start: 04-25-2020 Patient encounter procedure Koffi Uriarte VH-TEDJ-Ljtm [place] Work Phone: Start: 04-19-2020 End: 04-19-2020 Emergency department patient visit ZAC ANDERSON [facility] Start: 04-18-2020 End: 04-19-2020 Emergency department patient visit Tu Curran Work Phone: [facility] Comment on above: Seizure (HCC) (Prima ry Dx) Start: 03-02-2019 Patient encounter procedure Koffi Uriarte SS-EEUR-Tnfi [place] Work Phone: Start: 05-04-2017 Ambulatory Koffi Uriarte [facility] Patient encounter status Koffi Alison Chapito Work Phone: LU-EHAS-Capt [place] Work Phone: Procedures Date Procedure Procedure Detail Performing Clinician Start: 03-07-2025 RECURRENT VAGINITIS (HTRX) Roula VILLEDA Work Phone: Start: 03-07-2025 Urnls dip stick/tablet rgnt non-auto w/o micrscp Roula VILLEDA Work Phone: Start: 03-07-2025 IGP,APTIMA HPV,AGE GDLN Roula VILLEDA Work Phone: Start: 02-07-2025 Urnls dip stick/tablet rgnt non-auto w/o micrscp Willis April DO Work Phone: Start: 01-22-2025 BOX TEST Willis April DO Work Phone: Start: 01-12-2025 End: 01-12-2025 Urnls dip stick/tablet rgnt non-auto w/o micrscp Willis April DO Work Phone: Start: 09-12-2024 25-hydroxyvitamin D3 [...] [Identifier] in Cervix by Cyto stain Willis Aprilkay ARTEAGA Work Phone: Start: 12-24-2020 Thyrotropin [Units/volume] in [...] ANDERSON Start: 04-19-2020 DIET NPO, NOW ZAC SANTIAGOADELINA Start: 04-19-2020 SEIZURE PRECAUTIONS ZAC MONICA Start: 04-19-2020 SALINE LOCK IV ZAC MONICA Start: 04-18-2020 Assay of lactate Tu Henley Carmen knutson Work Phone: Start: 04-18-2020 Urinalysis microscopic only Tu Henley [facility] Work Phone: Start: 04-18-2020 Urnls dip stick/tablet rgnt auto w/o microscopy Tu Truongfield Work Phone: Start: 04-18-2020 Blood count complete auto&auto difrntl wbc Tu Truongfield Work Phone: Start: 04-18-2020 Comprehensive metabolic panel Tu Truongfield Work Phone: Start: 04-18-2020 Gonadotropin chorionic qualitative Tu [place]ongfield Work Phone: History of No histor y of surgery Koffi Uriarte No history of surgery Shahnaz Uriarte Work Phone: Plan of Treatment Date Care Activity Detail Author Start: 10-02-2043 Zoster Vaccines (1 o f 2) Zoster Vaccines (1 of 2) [facility] Start: 06-08-2033 DTaP/Tdap/Td Vaccine s (9 - Td or Tdap) DTaP/Tdap/Td Vaccines (9 - Td or Tdap) [facility] Start: 09-12-2029 Lipid panel Lipid Panel [facility] Start: 02-17-2028 DTaP/Tdap/Td Vaccine s (8 - Td or Tdap) DTaP/Tdap/Td Vaccines (8 - Td or Tdap) [facility] Start: 03-10-2026 Screening for malign ant neoplasm of cervix [facility] Start: 03-09-2026 Screening for malign ant neoplasm of cervix [facility] Start: 05-07-2025 End: 05-07-2025 Patient encounter procedure 05/07/2025 2:00 PM EDT Office Visit [address] Chiu [address] [phone] [place] [address] [facility] [address], [place] [address] [place] [address] [facility] Start: 04-04-2025 End: 04-04-2025 Patient encounter procedure 04/04/2025 3:10 PM EDT Routine [facility] [address] [place] [id number] Willis Chen DO [address] [place] [address] [facility] Start: 03-19-2025 Influenza vaccination Influenza Vacc ine (#1) [facility] Start: 03-14-2025 End: 03-14-2025 Professional / ancillary services management 03/14/2025 3:00 PM EDT Ancillary Procedure [facility] [address] [place] [id number] [facility] Start: 03-07-2025 End: 03-07-2025 Patient encounter procedure [facility] Comment on above: Arrived Start: 03-07-2025 End: 09-07-2025 Alpha fetoprotein, maternal Alpha fetoprotein, maternal Lab Routine Second trimester ([facility]) 16 weeks gestation of ([facility]) Expected: 03/07/2025 (Approximate), Expires: 09/07/2025 [facility] Comment on above: Expected: 03/07/2025 (Approximate), Expires: 09/07/2025 Start: 03-07-2025 End: 06-07-2025 US for US OB 14+ weeks anatomy scan Imaging Routine Screening, , for anatomic survey ([facility]) Expected: 03/07/2025, Expires: 06/07/2025 [facility] Comment on above: Expected: 03/07/2025 , Expires: 06/07/2025 Start: 02-21-2025 End: 02-21-2025 Professional / ancillary services management 02/21/2025 3:00 PM EDT Ancillary Procedure [facility] [place] [facility] [address] [place] [phone] [facility] Start: 02-12-2025 End: 02-12-2025 Patient encounter procedure 02/12/2025 2:20 PM EDT Office Visit [facility] [address] [address] [place] [address] [place] [address] [facility] Start: 02-07-2025 End: 02-07-2025 Patient encounter procedure [facility] Comment on above: Arrived Start: 02-07-2025 End: 05-10-2025 US for US OB less than 14 weeks early Imaging Routine Missed menses Subchorionic hematoma in second trimester, single or unspecified fetus ([facility]) Expected: 02/07/2025, Expires: 05/10/2025 [facility] Work Phone: Comment on above: Expected: 02/07/2025 , Expires: 05/10/2025 Start: 02-01-2025 End: 02-01-2025 Patient encounter procedure 02/01/2025 9:20 AM EDT Office Visit [facility] [address] [place] [phone] Roula Grullon PA [address] [place] [address] Arrived [facility] Comment on above: Arrived Start: 01-12-2025 End: 01-12-2026 ABO/Rh ABO/Rh Lab Routine Missed menses , unspecified gestational age ([facility]) Expected: 01/12/2025 (Approximate), Expires: 01/12/2026 [facility] Comment on above: Expected: 01/12/2025 (Approximate), Expires: 01/12/2026 Start: 01-12-2025 End: 01-12-2026 Blood type and Indirect antibody screen panel - Blood Type and screen Lab Routine Missed menses , unspecified gestational age ([facility]) Expected: 01/12/2025 (Approximate), Expires: 01/12/2026 [facility] Work Phone: Comment on above: Expected: 01/12/2025 (Approximate), Expires: 01/12/2026 Start: 01-12-2025 End: 01-12-2026 Drugs of abuse panel - Urine by Screen method Rapid drug screen, urine Lab Routine , unspecified gestational age ([facility]) Encounter for supervision of normal first in first trimester ([facility]) Expected: 01/12/2025 (Approximate), Expires: 01/12/2026 [facility] Comment on above: Expected: 01/12/2025 (Approximate), Expires: 01/12/2026 Start: 05-03-2024 End: 05-03-2025 lamoTRIgine [Mass/volume] in Serum or Plasma Lamotrigine level Lab Routine Seizure (Multi) Expected: 05/03/2024 (Approximate), Expires: 05/03/2025 [facility] Service Area Work Phone: Comment on above: Expected: 05/03/2024 (Approximate), Expires: 05/03/2025 Start: 03-19-2024 COVID-19 Vaccine ( season) COVID-19 Vaccine ( season) [facility] Start: 03-19-2024 COVID-19 Vaccine ( season) COVID-19 Vaccine ( season) [facility] Start: 03-19-2024 Influenza vaccination Influenza Vacc ine (#1) [facility] Start: 10-02-2023 Screening for malign ant neoplasm of cervix HPV/Cotest [facility] Start: 08-02-2023 PHYSICAL, Provider: Koffi Uriarte, Status: Pen, Time: 9:00 AM PHYSICAL, Provider: Koffi Uriarte, Status: Pen, Time: 9:00 AM [facility] [place] Work Phone: Start: 08-02-2023 End: 08-02-2023 Patient encounter procedure 08/02/2023 9:00 AM EST Office Visit [facility] [address] [place] [phone] [place] [address] [place] [address] [facility] Start: 07-02-2023 PAP TESTING PAP TESTING [facility] Start: 07-02-2023 Screening for malign ant neoplasm of cervix [facility] Start: 12-24-2022 VIRANA LUISA, Provider : Nedra Calderon, Status: Pen, Time: 10:00 AM ERIKA, Provider: Nedra Calderon, Status: Pen, Time: 10:00 AM CH-Hwfllxmpu-Tbewlm ke SJW DO Work Phone: Start: 05-22-2022 PHYSICAL, Provider: Koffi Uriarte, Status: Pen, Time: 9:50 AM PHYSICAL, Provider: Koffi Uriarte, Status: Pen, Time: 9:50 AM [facility] Work Phone: Start: 03-24-2022 End: 05-24-2022 Choriogonadotropin.beta subunit [Units/volume] in Serum or Plasma HCG QUANTITATIVE Lab Routine Bleeding in early Expected: 03/24/2022, Expires: 05/24/2022 [facility] Work Phone: Comment on above: Expected: 03/24/2022 , Expires: 05/24/2022 Start: 03-19-2022 Influenza vaccination INFLUENZA (#1) [facility] Start: 12-24-2021 Thyroid stimulating hormone measurement TSH Level [facility] Start: 12-24-2021 FUVGENERAL, Provider : Nedra Calderon, Status: Pen, Time: 11:30 AM FUVGENERAL, Provider: Nedra Calderon, Status: Pen, Time: 11:30 AM NM-Qkzgovryv-Mpfswk ke SJW DO Work Phone: Start: 11-17-2021 FUV, Provider: Koffi Uriarte, Status: Pen, Time: 1:00 PM FUV, Provider: Koffi Uriarte, Status: Pen, Time: 1:00 PM WJ[facility]PEIN[facility] Work Phone: Start: 07-01-2021 COVID-19 VACCINE (3 - Booster for Pfizer series) COVID-19 VACCINE (3 - Booster for Pfizer series) [facility] Start: 06-25-2021 FUVGENERAL, Provider : Nedra Calderon, Status: Pen, Time: 2:00 PM FUVGENERAL, Provider: Nedra Calderon, Status: Pen, Time: 2:00 PM UZ[facility]OUFU[facility] Work Phone: Start: 06-25-2021 FUVGENERAL, Provider : Nedra Calderon, Status: Pen, Time: 11:00 AM FUVGENERAL, Provider: Nedra Calderon, Status: Pen, Time: 11:00 AM CL-HNKM-[place] Work Phone: Start: 05-20-2021 FUV, Provider: Koffi Uriarte, Status: Pen, Time: 3:40 PM FUV, Provider: Koffi Uriarte, Status: Pen, Time: 3:40 PM XR-WJHA-[place] Work Phone: Start: 03-31-2021 FUV, Provider: Koffi Uriarte, Status: Pen, Time: 2:00 PM FUV, Provider: Koffi Uriarte, Status: Pen, Time: 2:00 PM EA-RXGK-[place] Work Phone: Start: 03-26-2021 COVID-19 Vaccine (3 - Pfizer series) COVID-19 Vaccine (3 - Pfizer series) [facility] Start: 03-19-2020 Influenza vaccination Flu vaccine (# 1) [place] Start: 03-02-2018 DTaP/Tdap/Td vaccine (7 - Td) DTaP/Tdap/Td vaccine (7 - Td) [place] Start: 03-02-2018 Urine microalbumin profile DTAP,TDAP,TD (7 - Td or Tdap) [facility] Start: 2014 Screening for malign ant neoplasm of cervix [facility] Start: 10-02-2011 HEPATITIS C SCREENING HEPATITIS C [facility] Start: 10-02-2011 Hepatitis C screening Hepatitis C [facility] Start: 10-02-2011 HIV SCREENING [facility] SCRE[facility]ING [facility] Start: 2008 HIV screening HIV screen [facility] Start: 2006 Varicella vaccination Varicell a Vaccines (1 of 2 - 13+ 2-dose series) [facility] Start: 2005 Adult depression screening assessment DEPRESSION SCREENING [facility] Start: 2004 HPV vaccine (1 - 2-d ose series) HPV vaccine (1 - 2-dose series) [place] Start: 04-09-1999 Varicella vaccination Varicell a Vaccines (1 of 2 - 2-dose childhood series) [facility] Start: 1994 Varicella vaccine (1 of 2 - 2-dose childhood series) Varicella vaccine (1 of 2 - 2-dose childhood series) [place] Start: 1993 HIV screening HIV Screening [facility] Start: 1993 Lipid panel Lipid Panel [facility] Start: 1993 Yearly Adult Physical [facility] Bacteria identified in Urine by Culture Urine culture Microbiology Routine Missed menses Ordered: 01/12/2025 [facility] Comment on above: Ordered: 01/12/2025 CBC W Auto Different ial panel - Blood CBC and differential Lab Routine Missed menses , unspecified gestational age ([facility]) Ordered: 01/12/2025 [facility] Comment on above: Ordered: 01/12/2025 CHLAMYDIA TRACHOMATI S (GENITO/STI) CHLAMYDIA TRACHOMATIS (GENITO/STI) Lab Routine STD exposure Ordered: 03/07/2025 [facility] Comment on above: Ordered: 03/07/2025 End: 04-18-2020 CT Head WO Contrast CT Head WO Contrast Imaging STAT Once for 1 Occurrences starting 04/18/2020 until 04/18/2020 [place], [place] Comment on above: Once for 1 Occurrenc es starting 04/18/2020 until 04/18/2020 CT Head WO Contrast CT Head WO C ontrast Imaging STAT 04/18/2020 11:15 PM EDT [place] Cytology Cervical or vaginal smear or scraping study Pap Smear Pathology and Cytology Routine Well woman exam with routine gynecological exam Ordered: 03/07/2025 [facility] Comment on above: Ordered: 03/07/2025 Hemoglobin A1c/Hemoglobin.total in Blood Hemoglobin A1c Lab Routine Missed menses , unspecified gestational age ([facility]) Ordered: 01/12/2025 [facility] Comment on above: Ordered: 01/12/2025 Hepatitis B virus surface Ag [Presence] in Serum or Plasma by Immunoassay Hepatitis B surface antigen Lab Routine Missed menses , unspecified gestational age ([facility]) Ordered: 01/12/2025 [facility] Comment on above: Ordered: 01/12/2025 Hepatitis C virus Ab [Presence] in Serum or Plasma by Immunoassay Hepatitis C antibody Lab Routine Missed menses , unspecified gestational age ([facility]) Ordered: 01/12/2025 [facility] Comment on above: Ordered: 01/12/2025 HIV-1/HIV-2 antigen/antibody combination immunoassay HIV-1 and HIV-2 antibodies Lab Routine Missed menses , unspecified gestational age ([facility]) Ordered: 01/12/2025 [facility] Comment on above: Ordered: 01/12/2025 Human papilloma viru s DNA [Presence] in Unspecified specimen by Probe with amplification HPV DNA probe, amplified Microbiology Routine Well woman exam with routine gynecological exam Ordered: 03/07/2025 [facility] Comment on above: Ordered: 03/07/2025 Neisseria gonorrhoea e DNA [Presence] in Unspecified specimen by HUMERA with probe detection Neisseria gonorrhea DNA probe, direct Lab Routine STD exposure Ordered: 03/07/2025 [facility] Comment on above: Ordered: 03/07/2025 End: 04-18-2020 Prolactin Prolactin Lab STAT One Time for 1 Occurrences starting 04/18/2020 until 04/18/2020 [place] Comment on above: One Time for 1 Occur rences starting 04/18/2020 until 04/18/[address] AT 04/18/2020 11:17 PM EDT [facility] [place] [place] Reagin Ab [Presence] in Serum by RPR RPR Lab Routine Missed menses , unspecified gestational age ([facility]) Ordered: 01/12/2025 [facility] Comment on above: Ordered: 01/12/2025 Rubella antibody, IgG Rubella an tibody, IgG Lab Routine Missed menses , unspecified gestational age ([facility]) Ordered: 01/12/2025 [facility] Comment on above: Ordered: 01/12/2025 SURESWAB(R) ADVANCED VAGINITIS PLUS, TMA SURESWAB(R) ADVANCED VAGINITIS PLUS, TMA Pathology and Cytology Routine Vaginal discharge Ordered: 03/07/2025 [facility] Work Phone: Comment on above: Ordered: 03/07/2025 FV-WLHD-Klqx [place] ke Work Phone: [facility] NEGATED: Highlighted row has been ruled out! Planned Goals not documented [employer] Work Phone: Immunizations Immunization Date Immunization Notes Care Provider Fa [facility] 11-01-2023 hepatitis B vaccine, adult dosage Koffi Uriarte MD Work Phone: [facility] Work Phone: 06-08-2023 tetanus toxoid, redu diego diphtheria toxoid, and acellular pertussis vaccine, adsorbed Koffi Uriarte MD Work Phone: [facility] Work Phone: 04-22-2023 influenza, injectabl e, quadrivalent, preservative free Koffi Uriarte MD Work Phone: [facility] 04-22-2023 influenza virus vaccine, unspecified formulation Nedra Calderon MD Work Phone: [facility] Work Phone: 04-21-2022 influenza, injectabl e, quadrivalent, preservative free Koffi Uriarte Work Phone: [employer] Work Phone: 04-18-2021 influenza, injectabl e, quadrivalent, preservative free Koffi A Güdpod Work Phone: [employer] Work Phone: 01-29-2021 Voxli COVID-19 Vacc 30 MCG/0.3ML Intramuscular Suspension Koffi A Güdpod Work Phone: [employer] Work Phone: 01-08-2021 Voxli COVID-19 Vacc 30 MCG/0.3ML Intramuscular Suspension Koffi A Güdpod Work Phone: [employer] Work Phone: 05-09-2019 Influenza, injectabl e, Madin Alabaster Canine Kidney, preservative free, quadrivalent Koffi A Güdpod Work Phone: [employer] Work Phone: 04-28-2018 influenza, injectabl e, quadrivalent, contains preservative Koffi A Güdpod Work Phone: [employer] Work Phone: 02-16-2018 tetanus toxoid, redu diego diphtheria toxoid, and acellular pertussis vaccine, adsorbed Koffi A Güdpod Work Phone: [employer] Work Phone: 05-06-2017 influenza, injectabl e, quadrivalent, preservative free Koffi A Uriarte Work Phone: [employer] Work Phone: 01-14-2016 pneumococcal polysaccharide vaccine, 23 valent Koffi A Güdpod Work Phone: [employer] Work Phone: 11-30-2014 tuberculin skin test ; purified protein derivative solution, intradermal [place], [place] 12-15-2013 tuberculin skin test ; purified protein derivative solution, intradermal [facility] 03-02-2008 tetanus toxoid, redu diego diphtheria toxoid, and acellular pertussis vaccine, adsorbed [facility] 02-25-2007 meningococcal polysaccharide (groups A, C, Y and W-135) diphtheria toxoid conjugate vaccine (MCV4P) [facility] 02-25-2007 Meningococcal, MCV4, unspecified conjugate formulation(groups A, C, Y and W-135) [facility] 03-12-1999 diphtheria, tetanus toxoids and acellular pertussis vaccine [facility] 03-12-1999 diphtheria, tetanus toxoids and acellular pertussis vaccine, unspecified formulation Koffi Rosas Güdpod Work Phone: [employer] Work Phone: 03-12-1999 haemophilus influenz ae type b vaccine, HbOC conjugate [facility] 03-12-1999 measles, mumps and rubella virus vaccine [facility] 03-12-1999 poliovirus vaccine, inactivated [facility] 03-12-1999 trivalent poliovirus vaccine, live, oral [facility] 01-07-1995 diphtheria, tetanus toxoids and acellular pertussis vaccine [facility] 01-07-1995 diphtheria, tetanus toxoids and acellular pertussis vaccine, unspecified formulation Koffi Clementeson Work Phone: [employer] Work Phone: 10-22-1994 haemophilus influenz ae type b vaccine, conjugate unspecified formulation [facility] 10-22-1994 haemophilus influenz ae type b vaccine, PRP-OMP conjugate Koffi A Güdpod Work Phone: [employer] Work Phone: 10-22-1994 Hib, unspecified [facility] 10-22-1994 measles, mumps and rubella virus vaccine [facility] 10-22-1994 poliovirus vaccine, inactivated [facility] 06-18-1994 hepatitis B vaccine, pediatric or pediatric/adolescent dosage Koffi Uriarte Work Phone: [facility] 06-18-1994 hepatitis B vaccine, unspecified formulation [facility] [place] 04-16-1994 diphtheria, tetanus toxoids and acellular pertussis vaccine [facility] 04-16-1994 diphtheria, tetanus toxoids and pertussis vaccine [facility] 04-16-1994 haemophilus influenz ae type b vaccine, conjugate unspecified formulation [facility] 04-16-1994 haemophilus influenz ae type b vaccine, HbOC conjugate Brendan Glasenapp PA-C Work Phone: [facility] 04-16-1994 haemophilus influenz ae type b vaccine, PRP-OMP conjugate Koffi Uriarte Work Phone: [employer] Work Phone: 04-16-1994 Hib, unspecified [facility] 04-16-1994 poliovirus vaccine, inactivated [facility] 04-16-1994 trivalent poliovirus vaccine, live, oral [facility] 02-12-1994 diphtheria, tetanus toxoids and acellular pertussis vaccine [facility] 02-12-1994 diphtheria, tetanus toxoids and pertussis vaccine [facility] 02-12-1994 haemophilus influenz ae type b vaccine, conjugate unspecified formulation [facility] 02-12-1994 haemophilus influenz ae type b vaccine, HbOC conjugate Brendan Glasenapp PA-C Work Phone: [facility] 02-12-1994 haemophilus influenz ae type b vaccine, PRP-OMP conjugate Koffi Alison Uriarte Work Phone: [employer] Work Phone: 02-12-1994 Hib, unspecified [facility] 02-12-1994 poliovirus vaccine, inactivated [facility] 02-12-1994 trivalent poliovirus vaccine, live, oral [facility] 01-08-1994 hepatitis B vaccine, pediatric or pediatric/adolescent dosage Koffi Uriarte Work Phone: [facility] 01-08-1994 hepatitis B vaccine, unspecified formulation [facility] [place] 1993 diphtheria, tetanus toxoids and acellular pertussis vaccine [facility] 1993 diphtheria, tetanus toxoids and pertussis vaccine [facility] 1993 haemophilus influenz ae type b vaccine, conjugate unspecified formulation [facility] 1993 haemophilus influenz ae type b vaccine, HbOC conjugate Brendan Blankenship PA-C Work Phone: [facility] 1993 haemophilus influenz ae type b vaccine, PRP-OMP conjugate Koffi Uriarte Work Phone: [facility] [place] Work Phone: 1993 hepatitis B vaccine, pediatric or pediatric/adolescent dosage Koffi Uriarte Work Phone: [facility] 1993 hepatitis B vaccine, unspecified formulation [facility] [place] 1993 Hib, unspecified [facility] 1993 poliovirus vaccine, inactivated [facility] 1993 trivalent poliovirus vaccine, live, oral [place], [place] Payers Date Payer Category Payer Private Health Insurance [employer] [id number] 2023 Self-pay 2023 Managed Care (Private) 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 2019 Unknown [id number] 1993 Unknown [id number] 2.16.840.1.766329.3.579.2. 185 1993 Unknown [id number] 2.16.840.1.803637.3.579.2. 182 1993 Unknown [id number] 2.16.840.1.694342.3.579.2. 182 1993 Unknown [id number] 2.16.840.1.288207.3.579.2. 593 1993 Unknown [id number] 2.16.840.1.283459.3.579.2. 593 1993 Unknown [id number] 2.16.840.1.017139.3.579.2. 356 1993 Unknown [id number] 2.16.840.1.271097.3.579.2. 727 1993 Unknown [id number] 2.16.840.1.111780.3.579.2. 727 1993 Unknown [id number] 2.16.840.1.366410.3.579.2. 1259 1993 Unknown [id number] 2.16.840.1.705680.3.579.2. 1259 1993 Unknown [id number] 2.16.840.1.419397.3.579.2. 1259 1993 Unknown [id number] 2.16.840.1.427108.3.579.2. 1259 1993 Unknown [id number] 2.16.840.1.187670.3.579.2. 1259 1993 Unknown [id number] 2.16.840.1.621909.3.579.2. 1259 1993 Unknown [id number] 2.16.840.1.363595.3.579.2. 1259 1993 Unknown [id number] 2.16.840.1.395238.3.579.2. 1244 1993 Unknown [id number] 2.16.840.1.151275.3.579.2. 1244 1959 Unknown [id number] [id number]. [id number] Unknown [id number] Unknown [id number] 2.16.840.1.898482.3.579.2. 531 Unknown [id number] Social History Date Type Detail Facility Start: 04-18-2020 End: 04-30-2023 Tobacco smoking status [facility] Never smoker [facility] Start: 04-18-2020 End: 04-30-2023 Tobacco use and exposure Never used [place] Start: 04-18-2020 End: 09-12-2024 Alcohol intake Current drinker of alcohol (finding) [place] Start: 09-19-2019 History SDOH Financial 5 [place] Start: 09-19-2019 History SDOH Food Worry 1 [place] Start: 09-19-2019 History SDOH Transport Med 2 [place] Start: 04-18-2020 Alcohol Comment occasionally [place] Start: 1993 Sex Assigned At Not [facility] file [facility] [place] Start: 04-20-2023 End: 09-12-2024 Exposure to SARS-CoV-2 (event) Not sure Adriana [facility] [place] Start: 05-03-2024 End: 09-12-2024 Never smoker Never smoker [employer] Work Phone: Tobacco smoking status Never [facility] Start: 05-03-2024 End: 09-12-2024 Sex Assigned At Female [facility] Start: 1993 Sex Assigned At Female F [facility] Start: 05-03-2024 Alcoholic beverage intake Ex-drinker (finding) [facility] Work Phone: How often to you hav e a drink containing alcohol? Never [facility] Work Phone: Start: 04-23-2024 End: 05-03-2024 Exposure to SARS-CoV-2 (event) Yes [facility] Start: 09-12-2024 Alcohol Comment Socially [facility] [facility] Work Phone: Tobacco smoking status NHIS Tobacco smoking consumption unknown [facility] Start: 11-27-2024 [facility] Start: 12-21-2022 Gender identity Identifies as female gender (finding) [facility] Start: 12-21-2022 Sexual orientation Heterosexual (fin ding) [facility] NEGATED: Highlighted row - - [employer] [facility] Work Phone: NEGATED: Highlighted rowStart: NINF History of tobacco use Passive smoker [facility] Work Phone: Goals Date Patient Goal Desired Activity /State Personal health goal Functional Status Date Assessment Result Facility NEGATED: Highlighted row Functional performance Functional status health issues are not documented Disease [employer] [facility] Work Phone: Mental Status Date Assessment Result Facility NEGATED: Highlighted row Cognitive function [Interpretation] Cognitive status health issues are not documented [facility] [facility] Work Phone: Clinical Notes 08-09-2017 to 03-07-2025 CHRISTIANA Mills - 03/07/2025 3:20 PM Tess Andrade LPN - 02/07/2025 3:10 PM CHRISTIANA Sahu - 02/01/2025 9:20 AM Kelechi Agosto MA - 01/12/2025 11:00 AM EDTPatient Instructions Note Date & Type Note Facility 03-07-2025 History of Presen t illness Narrative Reason for Appointment: Patient ID: Princess Guerrero is a 29 y.o. female who presents for Routine Visit, Well Women Visit, and STI Screening Patient presents today for Annual Exam. and Return OB appointment. MEDICATIONS Current Outpatient Medications Medication Instructions docusate sodium (COLACE) 50 mg, 2 times daily labetalol (NORMODYNE) 200 mg, Oral, 2 times daily lamoTRIgine (LAMICTAL) 100 mg, Oral, 2 times daily MV-Min-Fe Fum-FA-DHA ( 1 PO) Oral promethazine (PHENERGAN) 25 mg, Oral, Every 6 hours PRN, Take 1 tablet by mouth every 6 hours as needed for nausea. ALLERGIES No Known Allergies PROBLEMS Active Ambulatory Problems Diagnosis Date Noted Hypertension 01/14/2023 Seizure ([facility]) 07/09/2021 Breech presentation, no version ([facility]) 07/29/2023 Resolved Ambulatory Problems Diagnosis Date Noted No Resolved Ambulatory Problems No Additional Past Medical History HISTORY PAST MEDICAL HISTORY SOCIAL HISTORY No past medical history on file. Social History Tobacco Use Smoking status: Not on file Smokeless tobacco: Not on file Substance Use Topics Alcohol use: Not on file Drug use: Not on file FAMILY HISTORY No family history on file. SURGICAL HISTORY Past Surgical History: Procedure Laterality Date SECTION, LOW TRANSVERSE 08/04/2023 PAP SMEAR 2 years ago [noted 11/16/22] REVIEW OF SYSTEMS Review of Systems: Review of Systems Constitutional: Negative. HENT: Negative. Eyes: Negative. Respiratory: Negative. Cardiovascular: Negative. Gastrointestinal: Negative. Genitourinary: Negative. Musculoskeletal: Negative. Skin: Negative. Neurological: Negative. All other systems reviewed and are negative. Hematological: Negative. Endocrine: Negative. Allergic/Immunologic: Negative. OBJECTIVE Objective: Physical Exam Constitutional: Appearance: Normal appearance. She is normal weight. HENT: Head: Normocephalic. Cardiovascular: Rate and Rhythm: Normal rate. Pulses: Normal pulses. Pulmonary: Effort: Pulmonary effort is normal. Breath sounds: Normal breath sounds. Abdominal: Palpations: Abdomen is soft. Musculoskeletal: General: Normal range of motion. Neurological: General: No focal deficit present. Mental Status: She is alert and oriented to person, place, and time. Psychiatric: Mood and Affect: Mood normal. Behavior: Behavior normal. Thought Content: Thought content normal. Judgment: Judgment normal. Vitals and nursing note reviewed. Vitals: Estimated body mass index is 26.26 kg/m as calculated from the following: Height as of 11/16/22: 5' 9 . Weight as of this encounter: 177 lb 12.8 oz. BP: 110/70 Patient's last menstrual period was 11/13/2024. ASSESSMENT & PLAN ICD-10-CM 1. Well woman exam with routine gynecological exam Z01.419 Pap Smear HPV DNA probe, amplified 2. Second trimester ([facility]) Z34.92 POCT urinalysis dipstick manually resulted Alpha fetoprotein, maternal Alpha fetoprotein, maternal 3. 16 weeks gestation of ([facility]) Z3A.16 POCT urinalysis dipstick manually resulted Alpha fetoprotein, maternal Alpha fetoprotein, maternal 4. Vaginal discharge N89.8 SURESWAB(R) ADVANCED VAGINITIS PLUS, TMA 5. STD exposure Z20.2 CHLAMYDIA TRACHOMATIS (GENITO/STI) Neisseria gonorrhea DNA probe, direct 6. Screening, , for anatomic survey ([facility]) Z36.89 OB 14+ weeks anatomy scan Return OB/Annual Exam: Patient presents today for an annual exam/routine obstetrics appointment. Patient is currently 16w2d . Patient is doing well and states she has no complaints. Pap/cultures was obtained without difficulty and patient was given [facility] order to have obtained. Orders Placed This Encounter Procedures HPV DNA probe, amplified US OB 14+ weeks anatomy scan CHLAMYDIA TRACHOMATIS (GENITO/STI) Neisseria gonorrhea DNA probe, direct Alpha fetoprotein, maternal POCT urinalysis dipstick manually resulted Follow Up: Patient is to return to our office in 4 weeks for routine OB appointment Documented by CHRISTIANA Mills on behalf of: CHRISTIANA Mills documented in this encounter [facility] 02-07-2025 History of Presen t illness Narrative Reason for Appointment: Patient ID: Princess Guerrero is a 29 y.o. female who presents for Routine Visit Patient presents today for Return OB appointment. MEDICATIONS Current Outpatient Medications Medication Instructions docusate sodium (COLACE) 50 mg, 2 times daily labetalol (NORMODYNE) 200 mg, Oral, 2 times daily lamoTRIgine (LAMICTAL) 100 mg, Oral, 2 times daily ondansetron ODT (ZOFRAN-ODT) 4 mg, Oral, Every 6 hours PRN MV-Min-Fe Fum-FA-DHA ( 1 PO) Oral promethazine (PHENERGAN) 25 mg, Oral, Every 6 hours PRN, Take 1 tablet by mouth every 6 hours as needed for nausea. ALLERGIES No Known Allergies PROBLEMS Active Ambulatory Problems Diagnosis Date Noted Hypertension 01/14/2023 Seizure ([facility]) 07/09/2021 Breech presentation, no version ([facility]) 07/29/2023 Resolved Ambulatory Problems Diagnosis Date Noted No Resolved Ambulatory Problems No Additional Past Medical History HISTORY PAST MEDICAL HISTORY SOCIAL HISTORY No past medical history on file. Social History Tobacco Use Smoking status: Not on file Smokeless tobacco: Not on file Substance Use Topics Alcohol use: Not on file Drug use: Not on file FAMILY HISTORY No family history on file. SURGICAL HISTORY Past Surgical History: Procedure Laterality Date SECTION, LOW TRANSVERSE 08/04/2023 PAP SMEAR 2 years ago [noted 11/16/22] REVIEW OF SYSTEMS Review of Systems: Review of Systems Constitutional: Negative. HENT: Negative. Eyes: Negative. Respiratory: Negative. Cardiovascular: Negative. Gastrointestinal: Negative. Genitourinary: Negative. Musculoskeletal: Negative. Skin: Negative. Neurological: Negative. All other systems reviewed and are negative. Hematological: Negative. Endocrine: Negative. Allergic/Immunologic: Negative. OBJECTIVE Objective: Physical Exam Constitutional: Appearance: Normal appearance. She is well-developed. Cardiovascular: Rate and Rhythm: Normal rate and regular rhythm. Pulmonary: Effort: Pulmonary effort is normal. Breath sounds: Normal breath sounds. Abdominal: General: Bowel sounds are normal. There is no distension. Palpations: Abdomen is soft. Tenderness: There is no abdominal tenderness. There is no guarding or rebound. Musculoskeletal: General: No swelling. Normal range of motion. Right lower leg: No edema. Left lower leg: No edema. Neurological: Mental Status: She is alert and oriented to person, place, and time. Skin: General: Skin is warm and dry. Psychiatric: Mood and Affect: Mood normal. Behavior: Behavior normal. Vitals and nursing note reviewed. Exam conducted with a assistant case manager present. Vitals: Estimated body mass index is 26.11 kg/m as calculated from the following: Height as of 11/16/22: 5' 9 . Weight as of this encounter: 176 lb 12.8 oz. BP: 114/74 Patient's last menstrual period was 11/13/2024. ASSESSMENT & PLAN ICD-10-CM 1. First trimester ([facility]) Z34.91 POCT urinalysis dipstick manually resulted 2. 12 weeks gestation of ([facility]) Z3A.12 POCT urinalysis dipstick manually resulted New OB: Patient presents today for 1st time obstetrics appointment with provider. Patient is currently 12w2d . Patients history has been reviewed in great detail including any potential risks. Patient stated she currently has no complaints. Expectations throughout regarding labs, ultrasounds, and appointments have been discussed with the patient in detail. It was reiterated that the patient is to drink 6-8 glasses of water a day, eat 6 small meals a day, do not consume raw or undercooked meat, and stay away from [facility]. Patient has been consulted regarding any further do's and don'ts of . Patient voiced understanding and all questions and concerns were answered. Orders Placed This Encounter Procedures POCT urinalysis dipstick manually resulted Follow Up: Patient is to return in 4 weeks for routine OB appointment. Documented by Cyndi Andrade LPN on behalf of: Willis Chen DO documented in this encounter [facility] 02-01-2025 History of Presen t illness Narrative Reason for Appointment: Patient ID: Princess Guerrero is a 29 y.o. female who presents for Routine Visit Patient presents today for Acute Visit. MEDICATIONS Current Outpatient Medications Medication Instructions docusate sodium (COLACE) 50 mg, 2 times daily labetalol (NORMODYNE) 200 mg, Oral, 2 times daily lamoTRIgine (LAMICTAL) 100 mg, Oral, 2 times daily ondansetron ODT (ZOFRAN-ODT) 4 mg, Oral, Every 6 hours PRN MV-Min-Fe Fum-FA-DHA ( 1 PO) Oral ALLERGIES No Known Allergies PROBLEMS Active Ambulatory Problems Diagnosis Date Noted Hypertension 01/14/2023 Seizure ([facility]) 07/09/2021 Breech presentation, no version ([facility]) 07/29/2023 Resolved Ambulatory Problems Diagnosis Date Noted No Resolved Ambulatory Problems No Additional Past Medical History HISTORY PAST MEDICAL HISTORY SOCIAL HISTORY No past medical history on file. Social History Tobacco Use Smoking status: Not on file Smokeless tobacco: Not on file Substance Use Topics Alcohol use: Not on file Drug use: Not on file FAMILY HISTORY No family history on file. SURGICAL HISTORY Past Surgical History: Procedure Laterality Date SECTION, LOW TRANSVERSE 08/04/2023 PAP SMEAR 2 years ago [noted 11/16/22] REVIEW OF SYSTEMS Review of Systems: Review of Systems Constitutional: Negative. HENT: Negative. Eyes: Negative. Respiratory: Negative. Cardiovascular: Negative. Gastrointestinal: Negative. Genitourinary: Negative. Musculoskeletal: Negative. Skin: Negative. Neurological: Negative. All other systems reviewed and are negative. Hematological: Negative. Endocrine: Negative. Allergic/Immunologic: Negative. OBJECTIVE Objective: Physical Exam Constitutional: Appearance: Normal appearance. She is normal weight. HENT: Head: Normocephalic. Cardiovascular: Rate and Rhythm: Normal rate. Pulses: Normal pulses. Pulmonary: Effort: Pulmonary effort is normal. Breath sounds: Normal breath sounds. Abdominal: Palpations: Abdomen is soft. Musculoskeletal: General: Normal range of motion. Neurological: General: No focal deficit present. Mental Status: She is alert and oriented to person, place, and time. Psychiatric: Mood and Affect: Mood normal. Behavior: Behavior normal. Thought Content: Thought content normal. Judgment: Judgment normal. Vitals and nursing note reviewed. Vitals: Estimated body mass index is 25.92 kg/m as calculated from the following: Height as of 11/16/22: 5' 9 . Weight as of this encounter: 175 lb 8 oz. BP: 118/82 Patient's last menstrual period was 11/13/2024. ASSESSMENT & PLAN ICD-10-CM 1. First trimester ([facility]) Z34.91 2. 11 weeks gestation of ([facility]) Z3A.11 Patient is presents for er follow up post vaginal bleeding. Patient states bleeding has stopped, heart tones noted today and seen on US. US in er reviewed subchorionic hematoma. Patient doing better but continues to have constipation, we did send in colace for her and she has taken one time. Encouraged water and gatorade lite. We will also sent phenergan in for nauesea Documented by CHRISTIANA Mills on behalf of: CHRISTIANA Mills documented in this encounter [facility] 01-12-2025 History of Presen t illness Narrative Reason for Appointment: Patient ID: Princess Guerrero is a 29 y.o. female who presents for Amenorrhea Patient presents today for a Nurse OB Intake appointment. Patient is 8w4d with a Estimated Date of Delivery: 08/20/25 OB History Para Term AB Living 3 1 1 1 1 SAB IAB Ectopic Multiple Live Births 1 # Outcome Date GA Lbr Sushant/2nd Weight Sex Type Anes PTL Lv 3 Current 2 Term 08/04/23 37w2d 5 lb 13 oz F CS-LTranv JACKSON Complications: Breech presentation ([facility]) 1 AB Obstetric Comments Last pap smear date 2 years ago Current Medications: has a current medication list which includes the following prescription(s): labetalol, lamotrigine, and mv-min-fe fum-fa-dha. Medical History: Active Ambulatory Problems Diagnosis Date Noted Hypertension 01/14/2023 Seizure ([facility]) 07/09/2021 Breech presentation, no version ([facility]) 07/29/2023 Resolved Ambulatory Problems Diagnosis Date Noted No Resolved Ambulatory Problems No Additional Past Medical History No family history on file. Social History Tobacco Use Smoking status: Not on file Smokeless tobacco: Not on file Substance Use Topics Alcohol use: Not on file Drug use: Not on file Past Surgical History: Procedure Laterality Date SECTION, LOW TRANSVERSE 08/04/2023 PAP SMEAR 2 years ago [noted 11/16/22] No Known Allergies Vitals: Estimated body mass index is 28.18 kg/m as calculated from the following: Height as of 11/16/22: 5' 9 . Weight as of 09/15/23: 190 lb 12.8 oz. BP: Patient's last menstrual period was 11/13/2024. Assessment/Plan Diagnoses and all orders for this visit: Missed menses - US OB transvaginal; Future - Type and screen; Future - ABO/Rh; Future - CBC and differential - Hemoglobin A1c - RPR - Rubella antibody, IgG - Hepatitis B surface antigen - Hepatitis C antibody - HIV-1 and HIV-2 antibodies - Urine culture - POCT , urine manually resulted - POCT urinalysis dipstick manually resulted , unspecified gestational age ([facility]) - Type and screen; Future - ABO/Rh; Future - CBC and differential - Hemoglobin A1c - RPR - Rubella antibody, IgG - Hepatitis B surface antigen - Hepatitis C antibody - HIV-1 and HIV-2 antibodies - Rapid drug screen, urine; Future Encounter for supervision of normal first in first trimester ([facility]) - Rapid drug screen, urine; Future OB Intake: Patient presents today for first OB visit. Patients history has been reviewed in great detail including any potential risks. Patient signed consent forms and patient desires testing in both trimesters. Patient currently has no complaints and has been advised to drink 6-8 glasses of water a day, eat no raw or undercooked meat, and stay away from [facility]. Patient has also been advised to not change litter boxes and eat 6 small meals a day. Patient has been consulted regarding the do's and don'ts of . Patient was given labs and all questions and concerns were answered. Follow Up: Patient is to have labs drawn at directed and return to office for initial OB appointment with provider. Patient may call office as needed with any concerns or questions. Nurse Visit Completed by: Damaris Agosto MA documented in this encounter [facility] 09-12-2024 Evaluation + Plan note Associated Problem(s): [...] Primary Care - PCP - Established; Future [facility] Work Phone: 09-12-2024 Evaluation + Plan note Associated Problem(s): Seizure (Multi) Good control. Follow up with neuro. Continue meds [facility] Work Phone: 09-12-2024 Evaluation + Plan note Associated Problem(s): Vitamin B12 deficiency [facility] Work Phone: 09-12-2024 Evaluation + Plan note Associated Problem(s): Fatigue We talked about healthy habits and sleep hygiene Orders: CBC; Future TSH with reflex to Free T4 if abnormal; Future Vitamin B12; Future [facility] Work Phone: 09-12-2024 History of Presen t illness Narrative Subjective Princess Guerrero is a 28 y.o. female who presents for Follow-up (Follow from chairman & chief executive officer appt for elevated BP). Here for [...] daily or vitamins. documented in this encounter [facility] Work Phone: 09-12-2024 Instructions Koffi Uriarte MD - 09/12/2024 12:40 PM EST Please start back on folic acid 1 mg daily or vitamins. documented in this encounter [facility] Work Phone: 09-12-2024 Miscellaneous Notes Associated Problem(s): [...] Vitamin B12; Future documented in this encounter [facility] Work Phone: 05-03-2024 History of Presen t illness Narrative Images from the original note were not included. Neurological [facility] Referring: No ref. provider found PCP: [...] further seizures. She is now working for [employer] as the health department wanted to transition her to the intermediate system. Patient Active Problem List Diagnosis Anxiety [...] in upper and lower extremities. Coordination Right: Fgurmy-fk-bdwc normal.Left: Deklxc-dp-pzsu normal. Physical Exam Eyes: Extraocular Movements: Extraocular [...] for this visit. documented in this encounter [facility] Work Phone: 12-16-2023 Note [phone] [id number] 12-15-2023 Note Patient Education Ma terials [...] wine (148 mL (more content not included)... 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 Patient Active Problem List Diagnosis Abnormal weight [...] 5/5 throughout all four extremities. Coordination Right: Vfdcms-mq-mauw normal.Left: Sbmgvw-fq-qewr normal. Physical Exam Eyes: Extraocular Movements: Extraocular [...] in 1 year documented in this encounter [facility] Work Phone: 11-25-2022 Note EXAMINATION: US [...] authenticated by: HAYLIE HOUSER Date: 2022-11-25 17:20 [facility] 04-16-2022 Note HNO ID: [id number] Author: Brendan Blankenship PA-C Service: ? 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 I, Brendan Blankenship, have reviewed this information as documented for accuracy and performed all elements of history taking, and edited the record as necessary. ROS: SEE HPI PE: GENERAL: well-appearing, in no acute distress LUNGS: Normal inspiratory effort ENGINEERING FACULTY MEMBER: Normal external genitalia, no vaginal bleeding, small [...] Medical Decision Making Level: 3 - Low [facility] 03-24-2022 Miscellaneous Notes VM left [...] move appt sooner. documented in this encounter [facility] 03-19-2022 Miscellaneous Notes LMP 02/11, +hpt. Assisted w initial OBV. Advised to take vitamin w folic acid. First trimester precautions provided. handbook sent in . documented in this encounter [facility] 02-03-2022 Miscellaneous Notes The following approved medication requests have been transmitted electronically. Signed Prescriptions Disp Refills metroNIDAZOLE (FLAGYL) 500 mg tablet 14 tablet 0 Sig: Take 1 tablet by mouth twice daily. for vaginosis. Do not drink alcohol while taking this medication MICHELLE: No Brendan Souza APRN.MEDICAL SERVICES ASSISTANT Pt reporting vag discharge/odor- same symptoms as past +BV dx. Last annual 06/2021. Req for BV medications Pending Prescriptions Disp Refills METRONIDAZOLE 500 MG TABLET 14 tablet 0 Sig: Take 1 tablet by mouth twice daily. for vaginosis. Do not drink alcohol while taking this medication MICHELLE: No documented in this encounter [facility] 09-09-2021 Note HNO ID: [id number] Author: Brendan Blankenship PA-C Service: ? 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 Portions of this record were documented by the Manager Pool. I, Brendan Blankenship, have reviewed this information as documented for accuracy and performed all elements of history taking, and edited the record as necessary. ROS: SEE HPI PE: GENERAL: well-appearing, in no acute distress LUNGS: Normal inspiratory effort ENGINEERING FACULTY MEMBER: Small amount yellow mucus discharge, cervix NL. [...] Medical Decision Making Level: 3 - Low [facility] 07-04-2021 Note HNO ID: [id number] Author: 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 APRN.MEDICAL SERVICES ASSISTANT Service: ? Author Type: Nurse Practitioner Type: [...] Ectopic0 Multiple0 Live Births0 Comment: Menarche 10 Audio Director History LMP: 06/07/2021 (Exact Date), Having periods Age at Menarche: Age at First : Age at Menopause: Audio Director History Comments: Sexual Activity: Yes; Male; same [...] external genitalia normal, normal Bartholin's glands, urethra, [place]'s glands, no vulvar lesions, no cervical lesions, [...] type of detergents for washing undergarments, wiping psjmj-ao-gqhm, sleep in loose shorts without underwear, shower immediately after intercourse/exercise, make sure perineum is gently blotted dry before dressing. Avoid scratching, scented pads/tampons/toilet papers, cranberry juice, bubble baths, and intercourse until symptoms are relieved. NO douching. If you shave, use a new razor at least twice monthly. 5) Follow up one year or sooner as needed 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 APRN.MEDICAL SERVICES ASSISTANT [facility] 08-09-2017 History of Past i llness Narrative Problem Noted Date Resolved Date NO SHOW 08/09/2017 08/09/2017 documented as of this encounter (statuses as of 02/03/2022) [facility] History of Past illness Narrative* Problem Noted Date Resolved Date NO SHOW 08/09/2017 08/09/2017 documented as of this encounter (statuses as of 03/19/2022) [facility] of Past illness Narrative* Problem Noted Date Resolved Date NO SHOW 08/09/2017 08/09/2017 documented as of this encounter (statuses as of 03/24/2022) [facility] No data available [facility] Acute [facility]initis- Primary Vaginitis and vulvovaginitis, unspecified documented in this encounter [facility] note* Diagnosis Bleeding in early - Primary Unspecified hemorrhage in early , unspecified as to episode of care documented in this encounter [facility] note* Diagnosis Seizure (CMS/HCC)- Primary Other convulsions documented in this encounter [facility] Work Phone: Evaluation noteNo assessment information available [facility] Work Phone: Evaluation note* Diagnosis Seizure (Multi)- Primary Other convulsions documented in this encounter [facility] Work Phone: Evaluation note* Diagnosis Benign essential hypertension- Primary Essential hypertension, benign Seizure (Multi) Other convulsions Vitamin B12 deficiency Other B-complex deficiencies Fatigue, unspecified type Well adult health check Unspecified general medical examination Vitamin D deficiency documented in this encounter [facility] Work Phone: Evaluation note* Diagnosis Missed menses Missed menses , unspecified gestational age ([facility]) Encounter for supervision of normal first in first trimester ([facility]) Nausea and vomiting in ([facility]) Unspecified vomiting of , unspecified as to episode of care Seizure (HCC) Other convulsions Chronic hypertension documented in this encounter [facility] HealthcareEvaluation note* Diagnosis Nausea and vomiting, unspecified vomiting type- Primary First trimester ([facility]) state, incidental 11 weeks gestation of ([facility]) documented in this encounter [facility] HealthcareEvaluation note* Diagnosis First trimester ([facility]) state, incidental 12 weeks gestation of ([facility]) Missed menses Subchorionic hematoma in second trimester, single or unspecified fetus ([facility]) documented in this encounter [facility] HealthcareEvaluation note* Diagnosis Well woman exam with routine gynecological exam Routine gynecological examination Second trimester ([facility]) state, incidental 16 weeks gestation of ([facility]) Vaginal discharge Leukorrhea, not specified as infective STD exposure Screening, , for anatomic survey ([facility]) Encounter for anatomic survey documented in this encounter [facility] Narrative* The patient states she has been doing well with her blood pressure control since the last visit. She has no comorbid illnesses. She has no significant interval events. * Symptoms: The patient is currently asymptomatic. * Less anxiety lately. Broke up with her boyfriend. * Working in [place] at the [employer] department. * BP is much improved on lisinopril. * Saw gyne for discharge. * was told she had BV and chlamydia. * took antibiotics, got better for a few weeks and now she is having discharge again and odor. no pelvic pain. [employer] Work Phone: History of Present illness Narrative* The patient states she has been doing well with her blood pressure control since the last visit. She has no comorbid illnesses. She has no significant interval events. * Symptoms: The patient is currently asymptomatic. * Less anxiety lately. Broke up with her boyfriend. * Working in [employer] at the [employer] department. * BP is much improved on lisinopril. * Saw gyne for discharge. * was told she had BV and chlamydia. * took antibiotics, got better for a few weeks and now she is having discharge again and odor. no pelvic pain. [employer] Work Phone: Hospital Discharge instructions No data available [facility] data available for this section [facility] Summary Purpose Family History No Family [...] Not Specified Malignant neoplasm Unknown Advance Directives No Advanced Directives Records FoundDocuments on File Type Date Recorded Patient Dispensing Lead Expl anation ACP-Advance Directive ACP-Power of Dairy Clerk Documents on File Type Date Recorded Patient Dispensing Lead Expl anation ACP-Advance Directive ACP-Power of Dairy Clerk Documents on File Type Date Recorded Patient Dispensing Lead Expl anation Advance Directive(s) 11/30/2015 2:19 PM Advance Directive Response Recorded Date/ Time Advance Directives No November 08, 3:18pm Reason for Referral Status Reason Specialty Diagnoses / Procedures Referre d By Contact Referred To Contact Open Radiology Diagnoses Nonintractable generalized idiopathic epilepsy without status epilepticus (HCC) Procedures MRI BRAIN W WO CONTRAST Spike Garcia MD [address] [place] [address] Assessments Diagnosis Nonintractable generalized idiopathic epilepsy without status epilepticus (HCC) Diagnosis Seizure (HCC) Other convulsions Discharge Instructions * Attachments The following attachments cannot be sent through Care Everywhere. * Seizure (Armenian) documented in this encounter Chief Complaint and Reason for Visit Chief Complaint Nausea, diarrhea Additional Source Comments INFORMATION SOURCE (unrecogn ized section and content) DATE CREATED AUTHOR 01/11/2018 [facility] DATE CREATED AUTHOR AUTHOR'S ORGANIZ ATION 04/19/2020 [facility] DATE CREATED AUTHOR AUTHOR'S ORGANIZ ATION 05/11/2020 [facility] DATE CREATED AUTHOR AUTHOR'S ORGANIZ ATION 12/29/2020 [facility] DATE CREATED AUTHOR AUTHOR'S ORGANIZ ATION 04/20/2022 [facility] DATE CREATED AUTHOR AUTHOR'S ORGANIZ ATION 08/11/2022 [facility] DATE CREATED AUTHOR AUTHOR'S ORGANIZ ATION 11/29/2022 [facility] DATE CREATED AUTHOR AUTHOR'S ORGANIZ ATION 12/27/2022 [facility] ical Center DATE CREATED AUTHOR AUTHOR'S ORGANIZ ATION 09/07/2023 [facility] DATE CREATED AUTHOR AUTHOR'S ORGANIZ ATION 12/16/2023 [facility] DATE CREATED AUTHOR AUTHOR'S ORGANIZ ATION [facility]/01/20[facility] DATE CREATED AUTHOR AUTHOR'S ORGANIZ ATION 04/02/2024 [facility] DATE CREATED AUTHOR AUTHOR'S ORGANIZ ATION 07/14/2024 Hanna Diaz [facility] ical Center DATE CREATED AUTHOR AUTHOR'S ORGANIZ ATION 09/15/2024 [facility] DATE CREATED AUTHOR AUTHOR'S ORGANIZ ATION 03/16/2025 [facility] Special[facility] DATE CREATED AUTHOR AUTHOR'S ORGANIZ ATION 03/22/2025 [facility] Ambulatory Reason for Visit (unrecogniz ed section and content) Status Reason Specialty Diagnoses / Procedures Referre d By Contact Referred To Contact Closed EEG Diagnoses Generalized idiopathic epilepsy and epileptic syndromes, not intractable, without status epilepticus Procedures HC EEG 16+ CHANNEL TELEMTERY 24HR Spike Garcia MD [address] [facility] [address] [place] [address] M[facility]z Eeg [address] [place] [address] Status Reason Specialty Diagnoses / Procedures Referre d By Contact Referred To Contact Closed Radiology Diagnoses Generalized idiopathic epilepsy and epileptic syndromes, not intractable, without status epilepticus Procedures HC MRI-BRAIN WO & W CONTRAST Spike Garcia MD [address] [facility] [address] [place] [address] Mloz Mri [address] [place] [address] Reason Comments Seizures Seizure like activit y Reason Comments Appointment Reason Comments Bleeding With Reason Comments Seizures Medication udates Reason Comments Seizures Reason Comments Follow-up Follow from chairman & chief executive officer appt for elevated BP Reason Comments Amenorrhea Reason Comments Routine Visit Reason Comments Routine Visit Well Women Visit STI Screening Source Comments (unrecognize d section and content) In the event this informatio n is protected by the Federal Confidentiality of Alcohol and Drug Abuse Patient Records regulations: The Federal rules restrict any use of the information to criminally investigate or prosecute any alcohol or drug abuse patient.[facility] the event this information is protected by the Federal Confidentiality of Alcohol and Drug Abuse Patient Records regulations: The Federal rules restrict any use of the information to criminally investigate or prosecute any alcohol or drug abuse patient.[facility] Center[facility] the event this information is protected by the Federal Confidentiality of Alcohol and Drug Abuse Patient Records regulations: The Federal rules restrict any use of the information to criminally investigate or prosecute any alcohol or drug abuse patient.[facility] Care Teams (unrecognized sec tion and content) Cvicu Rn Relationship Specialty Start Date End Date Koffi Uriarte MD PCP - General Family Practice 08/17/16 Cvicu Rn Relationship Specialty Start Date End Date Koffi Uriarte MD PCP - General Family Practice 08/17/16 Cvicu Rn Relationship Specialty [place] [address] [place] [address] PCP - General 08/14/20 [place] [address] [address] PCP - MMO ACO PCP 02/16/23 Team Status: Active Member Role Status Dates Norma Houser APRN Primary Care Provider Active Team Status: Inactive Member Role Status Dates Yusra Whitehead APRN Attending Provider Active Start: November 09, 2023 End: November 09, 2023 Norma Houser APRN Primary Care Provider Active Start: November 09, 2023 End: November 09, 2023 Cvicu Rn Relationship Specialty [place] [address] [place] [address] PCP - General 08/14/20 Cvicu Rn Relationship Specialty [place] [address] [address] PCP - General 08/14/20 Cvicu Rn Relationship Specialty [place] [address] [place] [address] PCP - General Family Medicine 01/14/23 Cvicu Rn Relationship Specialty Start [place] [address] [place] [address] PCP - General Family Medicine 01/14/23 Cvicu Rn Relationship Specialty Start [place] [address] [place] [address] PCP - General Family Medicine 01/14/23 Cvicu Rn Relationship Specialty Start [place] [address] [place] [address] PCP - General Family Medicine 01/14/23 Cvicu Rn Relationship Specialty Start [place] [address] [address] PCP - General Family Medicine 01/14/23 Cvicu Rn Relationship Specialty [place] [address] [place] [address] PCP - General Family Medicine 01/14/23 Cvicu Rn Relationship Specialty Start [place] [address] [place] [address] PCP - General Family Medicine 01/14/23 Cvicu Rn Relationship Specialty [place] [address] [place], [place] [id number] PCP - General Family Medicine 01/14/23 Goals [...] BE BASED ON THE PRIMARY CLINICAL RECORDS. [employer] provides no warranty or guarantee of the accuracy or completeness of information in this document.
== END 2025-04-03 18:39 | disposition home or self-care (01) ==
LOC: US 18:39
PROVIDERS: PCP Family Medicine; Visit Provider Obstetrics & Gynecology
DX: Z36.89 Encounter for other specified antenatal screening (principal)
CPT/HCPCS: 76805; 76817

== ENCOUNTER 2025-04-07 10:06 | Outpatient (OUT) | payer BC, SELFPAY ==
--- OUTSIDE RECORDS SUMMARY | 2025-04-04 15:10 | XMS_ITS | Encounter Summary ---
Author Organization [facility] Address [address] [place] [address] Care Team Providers Care Chainman Name Role Phone Suzanne Uriarte MD Primary Care Provider [phone]- [phone] Reason for Visit * Reason Comments Routine Visit Encounter Details Date Type Department Care Team ([facility] Contact Info) Description 04/04/2025 3:10 PM EDT Routine [facility] [facility] [address] [place] [phone] Willis Chen DO [address] [place] [address] 20 weeks gestation of ([facility]); Second trimester ([facility]) Social History Tobacco Use Types Packs/Day Years [...] Sign Reading Time Taken Comments Blood Pressure 110/70 04/04/2025 3:12 PM EDT Pulse - - Temperature - - Respiratory Rate - - Oxygen Saturation - - Inhaled Oxygen Concentration - - Weight 83.1 kg (183 lb 1.9 oz) 04/04/2025 3:12 P M EDT Height - - Body Mass Index 27.04 11/16/2022 12:00 PM EDT documented in this encounter Progress Notes * Willis Chen DO - 04/04/2025 3:10 PM EDT Reason for Appointment: Patient ID: Kavya Guerrero is a 29 y.o. female who presents for Routine Visit Patient presents today for Return OB appointment. Current Medications: has a current medication list which includes the following prescription(s): docusate sodium, labetalol, lamotrigine, mv-min-fe fum-fa-dha, and promethazine. Medical History: Active Ambulatory Problems Diagnosis Date Noted Hypertension 01/14/2023 Seizure ([facility]) 07/09/2021 Breech presentation, no version ([facility]) 07/29/2023 Resolved Ambulatory Problems Diagnosis Date Noted [...] years ago [noted 11/16/22] No Known Allergies Review of Systems: Review of Systems Constitutional: Negative. HENT: Negative. Eyes: Negative. Respiratory: Negative. Cardiovascular: Negative. Gastrointestinal: Negative. Genitourinary: Negative. Musculoskeletal: Negative. Skin: Negative. Neurological: Negative. All other systems reviewed and are negative. Hematological: Negative. Endocrine: Negative. Allergic/Immunologic: Negative. Objective Physical Exam Constitutional: Appearance: Normal appearance. She [...] nursing note reviewed. Exam conducted with a latexer present. Vitals: Estimated body mass index is 27.04 kg/m?? as calculated from the following: Height as of 11/16/22: 5' 9 . Weight as of this encounter: 183 lb 1.9 oz. BP: 110/70 Patient's last menstrual period was 11/13/2024. Assessment/Plan Encounter Diagnosis: ICD-10-CM 1. 20 weeks gestation of ([facility]) Z3A.20 POCT urinalysis dipstick manually resulted 2. Second trimester ([facility]) Z34.92 POCT urinalysis dipstick manually resulted Return OB: Patient presents today for a routine obstetrics appointment. Patient is currently 20w2d . Patient states she is doing well but has complaints of being tired due to current . Patient has verbalizes frequent movement. labor precautions was discussed/given and patient was instructed to perform kick counts three times a day. Orders Placed This Encounter Procedures POCT urinalysis dipstick manually resulted Follow Up: Patient is to return to office in 2 week for routine OB appointment. Documented by Willis Chen DO on behalf of: Willis Chen DO documented in this encounter Plan of Treatment Upcoming Encounters Date Type Department Care Team (Late st Contact Info) Description 04/30/2025 9:50 AM EDT Routine [facility] [address] [phone] Roula Grullon PA [address] [place] [address] documented as of this encounter Goals Goal Patient Goal Type Associated Problems Recent Progress Patient-Stated? Author Reminders Care Plan OB Reminders No Open Scheduling, Background documented as of this encounter Procedures Procedure Name Priority Date/Time Associated Diagnosis Comments POCT URINALYSIS DIPSTICK Routine 04/04/2025 3:20 PM EDT 20 weeks gestation of ([facility]) Second trimester ([facility]) documented in this encounter Results * (ABNORMAL) POCT urinalysis dipstick manually resulted (04/04/2025 3:20 PM EDT) Color, UA Straw Clarity, UA Clear Glucose, UA Negative Negative - 2000(110) ++++ mg/dL Bilirubin, UA Negative Negative - 4(70) +++ mg/dL Ketones, UA Positive Negative - 160(16) ++++ mg/dL Spec Grav, UA 1.020 1 - 1.03 Blood, UA Negative Negative - 50 Jae/mcL pH, UA 6.0 5 - 9 Protein, UA Positive Negative - 2000(20) ++++ mg/dL Urobilinogen, UA 1.0 0.2 - 12 mg/dL Leukocytes, UA Positive Negative - 500+++ Marsha/mcL Nitrite, UA Negative Negative - Positive Urine 04/04/2025 3:20 PM EDT Willis Chen DO POINT OF CARE TEST ENTER/EDIT OR DERABLES Final Result documented in this encounter Visit Diagnoses Diagnosis 20 weeks gestation of ([facility]) Second trimester ([facility]) state, incidental documented in this encounter Additional Health Concerns Active Problems Noted Date Diagnosed Date OB Reminders 01/14/2023 documented as of this encounter Care Teams Chainman Relationship Specialty [place] [address] [place] [address] PCP - General Family Medicine 01/14/23 documented as of this encounter
--- OUTSIDE RECORDS SUMMARY | 2025-04-07 10:13 | XMS_ITS | Encounter Summary ---
Author Organization [facility] Address [address] [facility] [place] [address] Care Team Providers Care Synthetic Plasterer Name Role Phone Suzanne Uriarte MD Primary Care Provider +1- [phone] Encounter Details Date Type Department Care Team (Late st Contact Info) Description 08/02/2023 Abstract [facility] [address] [place] [address] Lynette Engel LPN [address] [place] [id number] Social History Tobacco Use Types Packs/Day Years [...] Info) Description 04/30/2025 9:50 AM EDT Routine [facility] [address] [place] [address] Roula Grullon PA [address] [place], [place] [id number] documented as of this encounter Goals Goal Patient Goal Type Associated Problems Recent Progress Patient-Stated? Author Reminders Care Plan OB Reminders No Open Scheduling, Background documented as of this encounter Visit Diagnoses Not on filedocumented in this encounter Additional Health Concerns Active Problems Noted Date Diagnosed Date OB Reminders 01/14/2023 documented as of this encounter Care Teams Synthetic Plasterer Relationship Specialty Start [place] [address] [place], [place] [id number] PCP - General Family Medicine 01/14/23 documented as of this encounter
--- OUTSIDE RECORDS SUMMARY | 2025-04-07 10:13 | XMS_ITS | CCD ---
Author Organization [facility] Care Team Providers Care Bag Loader Name Role Phone Uriarte, Koffi A Unavailable [...] Unavailable Unavailable Zac Anderson Primary Care Provider [phone] Uriarte, Koffi A Unavailable Unavailable Unavailable Unavailable [...] Unavailable APRIL ., DR GONZALEZ Attending Unavailable MIK, DR HAYLIE Garcia Consulting Unavailable APRIL ., DR GONZALEZ Consulting Unavailable Chapito, Dr. Koffi Rosas Primary Care Dario Uriarte, Dr. Koffi Rosas Attending Dario Uriarte, Dr. Koffi Rosas Referring Dario Uriarte MD, Koffi Rosas Primary Care Provider Koffi Uriarte MD Unavailable Willis Chen Attending Unavailable Willis Chen Admitting Unavailable Provider, None Primary Care Unavailable TARAS FAUSTIN Admitting Unavailable TARAS FAUSTIN Attending Unavailable Vernon PABLO Attending Unavailable ELLEN, MILAGRO Primary Care Unavailable Spenser COLLINS Attending Unavailable MILAGRO HUGHES Primary Care Unavailable Koffi Uriarte MD Primary Care Provider Koffi Uriarte MD Primary Care Provider [phone] NEDRA CALDERON Attending Unavailable CHAPITO, KOFFI Rosas Primary Care UnavailKOFFI Aguilera Attending UnavailKOFFI Aguilera Primary Care UnavailROULA Earl Attending Unavailable WILLIS CHEN Attending Unavailable WILLIS CHEN Referring Unavailable ROULA GRULLON Attending Unavailable WILLIS CHEN Attending Unavailable Allergies Allergy Classification Reported Allergen(s) Allergy Type Date of Onset Reaction(s) Facility (2 sources) No Known Medication Allergies; Translations: [No Known Medication Allergies] Propensity to adverse reactions (disorder) [facility] Repository Medications Current Medications Medication Drug Class(es) Dates Sig (Normalized) Sig (Original) docusate sodium 50 mg oral capsule (14 sources) take 1 capsule by mouth in [...] Active labetalol hydrochloride 300 mg oral tablet (20 sources) beta-Adrenergic Francoise Start: 09-12-2024 End: 03-11-2025 [...] Status: Ordered MV-Min-Fe Fum-FA-DHA ( 1 PO) (17 sources) MV-Min- Fe Fum-FA-DHA ( 1 PO) Take by mouth Active promethazine hydrochloride 12.5 mg oral tablet (14 sources) Phenothiazine Start: 02-03-20 take 2 tablets [...] Quantity: 30 Refills: 3 Ordered: 25-Apr-2020 Lupe Doe Start : 25-Apr-2020 Active Patient requesting [...] Vaginal, BID, 70 gram, Refill(s) 0, [facility] #[id number] Start Date: 06/09/19 Stop Date: 06/14/19 [...] disintegrating tablet Indications: Nausea and vomiting in ([facility]) Take 1 tablet (4 mg) by [...] 07-04-2021 Chronic Other and delivery including normal (10 sources) ; Translations: [Encounter for supervision of [...] [16 weeks gestation of ] 03-07-2025 Episodic Residual codes; unclassified (2 sources) Gestation period, 20 weeks; Translations: [20 weeks gestation of ] 04-04-2025 Episodic Unclassified (1 source) Unknown / UNK(Unknown) Onset: 05-04-2017 Unclassified (3 sources) APPOINTMENT CANCELLED Onset: 08-09-2017 08-09-2017 Unclassified (17 sources) OB Reminders Onset: 01-14-2023 01-14-2023 Past [...] fatigue] Onset: 09-12-2024 09-12-2024 Episodic Malposition; malpresentation (17 sources) Breech presentation; Translations: [Maternal care for [...] 05-03-2024 10-02-2022 Episodic Unclassified (1 source) R07.9 06473/8 Onset: 05-04-2017 Unclassified (5 sources) Patient encounter status; Translations: [Encounter for audiology evaluation] Unclassified (2 sources) Onset: 05-03-2024 05-03-2024 NEGATED: Highlighted row has not occurred!Residual codes; unclassified (17 sources) Disease Episodic Results Test Name Value Interpretation Reference Range Facility No Panel InformationOrdered By: Radiologist Radiology on 04-04-[address] [facility] Work Phone: No Panel Informationon 04-04 Radiology Study observation (narrative) [facility] US OB ANATOMYon 04-04-2025 [place] [address] Ultrasound Report Signed Patient: PRINCESS GUERRERO MR#: [id number] : 1995 Acct:[id number] Age/Sex: 29 / F ADM Date: 04/03/25 Loc: US Attending Dr: Willis Chen D.O. Ordering Physician: Wlilis Chen D.O. Date of Service: 04/03/25 Procedure(s): US OB anatomy Accession Number(s): [id number] cc: Willis Chen D.O.; KOFFI URIARTE M.D. The [address] [address] Patient Name: PRINCESS GUERRERO MRN: [id number] date: 1995 Sex: F Assigned Patient Location: US Current Patient Location: Accession/Order Number: [id number] Exam Date: 04/03/2025 18:53 Report Date: 04/04/2025 09:12 At the request of: WILLIS CHEN DO Procedure: US OB anatomy CLINICAL DATA: Screening anatomy survey ULTRASOUND OB ANATOMY COMPARISON: 01/30/2025 There is a single live intrauterine gestation in variable presentation. There is cardiac and somatic activity with heart rate of 153 beats per minutes. The amniotic fluid volume is subjectively normal. The placenta is posterior and fundal and unremarkable in appearance. The neural axis and all 4 extremities were surveyed by the radio engineer and no abnormalities were reported. The stomach, bladder, kidneys, three-vessel cord with insertion, 4 chamber heart with right and left ventricular outflow tracts, diaphragm, facial features and female gender are seen. The following measurements were obtained: Biparietal diameter 4.7 cm 20 weeks 1 day 53% Head circumference 17.5 cm 20 weeks 0 days 38% Abdominal circumference 15.3 cm 20 weeks 4 days 57% Femur length 3.1 cm 19 weeks 5 days 27% The composite ultrasound age based on these measurements is 20 weeks 1 day +/- 1 week 3 days. This correlates with dates based on the prior. US/US OB anatomy IMPRESSION: SINGLE LIVE INTRAUTERINE GESTATION WITH ULTRASOUND AGE OF 20 WEEKS 1 DAY. UNREMARKABLE ANATOMY SURVEY. ULTRASOUND OB CERVICAL LENGTH COMPARISON: 01/30/2025 The cervix was evaluated with a transvaginal probe. The cervix is closed and the estimated length is 4.2 cm. The end of the placenta is approximately 5.6 cm from the internal cervical os. IMPRESSION: NORMAL CLOSED CERVIX. Impression dictated by: Cyndi Pisano M.D. 04/04/2025 9:12 AM Dictation Location: [place] [address] Electronically authenticated by: [id number] Y Date: 04/04/2025 09:12 Dictated By: Cyndi Pisano M.D. Signed By: 04/04/25913 DD/ 1 TD/TT: Floorworker: [facility] Radiology, Radiologist, - 04/04/2025 [place] [address] Ultrasound Report Signed Patient: PRINCESS GUERRERO MR#: [id number] : 1995 Acct:[id number] Age/Sex: 29 / F ADM Date: 04/03/25 Loc: US Attending Dr: Willis Chen D.O. Ordering Physician: Willis Chen D.O. Date of Service: 04/03/25 Procedure(s): US OB anatomy Accession Number(s): [id number] cc: Willis Chen D.O.; KOFFI URIARTE M.D. The [address] [address] Patient Name: PRINCESS GUERRERO MRN: [facility]:[id number] date: 1995 Sex: F Assigned Patient Location: US Current Patient Location: Accession/Order Number: [id number] Exam Date: 04/03/2025 18:53 Report Date: 04/04/2025 09:12 At the request of: WILLIS CHEN DO Procedure: US OB anatomy CLINICAL DATA: Screening anatomy survey ULTRASOUND OB ANATOMY COMPARISON: 01/30/2025 There is a single live intrauterine gestation in variable presentation. There is cardiac and somatic activity with heart rate of 153 beats per minutes. The amniotic fluid volume is subjectively normal. The placenta is posterior and fundal and unremarkable in appearance. The neural axis and all 4 extremities were surveyed by the radio engineer and no abnormalities were reported. The stomach, bladder, kidneys, three-vessel cord with insertion, 4 chamber heart with right and left ventricular outflow tracts, diaphragm, facial features and female gender are seen. The following measurements were obtained: Biparietal diameter 4.7 cm 20 weeks 1 day 53% Head circumference 17.5 cm 20 weeks 0 days 38% Abdominal circumference 15.3 cm 20 weeks 4 days 57% Femur length 3.1 cm 19 weeks 5 days 27% The composite ultrasound age based on these measurements is 20 weeks 1 day +/- 1 week 3 days. This correlates with dates based on the prior. US/US OB anatomy IMPRESSION: SINGLE LIVE INTRAUTERINE GESTATION WITH ULTRASOUND AGE OF 20 WEEKS 1 DAY. UNREMARKABLE ANATOMY SURVEY. ULTRASOUND OB CERVICAL LENGTH COMPARISON: 01/30/2025 The cervix was evaluated with a transvaginal probe. The cervix is closed and the estimated length is 4.2 cm. The end of the placenta is approximately 5.6 cm from the internal cervical os. IMPRESSION: NORMAL CLOSED CERVIX. Impression dictated by: Cyndi Pisano M.D. 04/04/2025 9:12 AM Dictation Location: [place] [address] Electronically authenticated by: [id number] Y Date: 04/04/2025 09:12 Dictated By: Cyndi Pisano M.D. Signed By: 04/04/25913 DD/ 1 TD/TT: Floorworker: [facility] US OB CERVICAL LENGTHon 03-19 [place] [address] Ultrasound Report Signed Patient: PRINCESS GUERRERO MR#: [id number] : 1995 Acct:[id number] Age/Sex: 29 / F ADM Date: 04/03/25 Loc: US Attending Dr: Willis Chen D.O. Ordering Physician: Willis Chen D.O. Date of Service: 04/03/25 Procedure(s): US OB cervical length Accession Number(s): [id number] cc: Willis Chen D.O.; KOFFI URIARTE M.D. [address] [address] Patient Name: PRINCESS GUERRERO MRN: [id number] date: 1995 Sex: F Assigned Patient Location: Current Patient Location: Accession/Order Number: [id number] Exam Date: 04/03/2025 18:53 Report Date: 04/04/2025 09:12 At the request of: WILLIS CHEN DO Procedure: US OB anatomy CLINICAL DATA: Screening anatomy survey ULTRASOUND OB ANATOMY COMPARISON: 01/30/2025 There is a single live intrauterine gestation in variable presentation. There is cardiac and somatic activity with heart rate of 153 beats per minutes. The amniotic fluid volume is subjectively normal. The placenta is posterior and fundal and unremarkable in appearance. The neural axis and all 4 extremities were surveyed by the radio engineer and no abnormalities were reported. The stomach, bladder, kidneys, three-vessel cord with insertion, 4 chamber heart with right and left ventricular outflow tracts, diaphragm, facial features and female gender are seen. The following measurements were obtained: Biparietal diameter 4.7 cm 20 weeks 1 day 53% Head circumference 17.5 cm 20 weeks 0 days 38% Abdominal circumference 15.3 cm 20 weeks 4 days 57% Femur length 3.1 cm 19 weeks 5 days 27% The composite ultrasound age based on these measurements is 20 weeks 1 day +/- 1 week 3 days. This correlates with dates based on the prior. US/US OB cervical length IMPRESSION: SINGLE LIVE INTRAUTERINE GESTATION WITH ULTRASOUND AGE OF 20 WEEKS 1 DAY. UNREMARKABLE ANATOMY SURVEY. ULTRASOUND OB CERVICAL LENGTH COMPARISON: 01/30/2025 The cervix was evaluated with a transvaginal probe. The cervix is closed and the estimated length is 4.2 cm. The end of the placenta is approximately 5.6 cm from the internal cervical os. IMPRESSION: NORMAL CLOSED CERVIX. Impression dictated by: Cyndi Pisano M.D. 04/04/2025 9:12 AM Dictation Location: [facility] Electronically authenticated by: [id number] Y Date: 04/04/2025 09:12 Dictated By: Cyndi Pisano M.D. Signed By: 04/04/25913 DD/ 1 TD/TT: Floorworker: [facility] Radiology, Radiologist, MD - 04/04/[address] [address] Ultrasound Report Signed Patient: PRINCESS GUERRERO MR#: [id number] : 1995 Acct:[id number] Age/Sex: 29 / F ADM Date: 04/03/25 Loc: US Attending Dr: Willis Chen D.O. Ordering Physician: Willis Chen D.O. Date of Service: 04/03/25 Procedure(s): US OB cervical length Accession Number(s): [id number] cc: Willis Chen D.O.; KOFFI URIARTE M.D. The [address] [address] Patient Name: PRINCESS GUERRERO MRN: [facility]:[id number] date: 1995 Sex: F Assigned Patient Location: US Current Patient Location: Accession/Order Number: [id number] Exam Date: 04/03/2025 18:53 Report Date: 04/04/2025 09:12 At the request of: WILLIS CHEN DO Procedure: US OB anatomy CLINICAL DATA: Screening anatomy survey ULTRASOUND OB ANATOMY COMPARISON: 01/30/2025 There is a single live intrauterine gestation in variable presentation. There is cardiac and somatic activity with heart rate of 153 beats per minutes. The amniotic fluid volume is subjectively normal. The placenta is posterior and fundal and unremarkable in appearance. The neural axis and all 4 extremities were surveyed by the radio engineer and no abnormalities were reported. The stomach, bladder, kidneys, three-vessel cord with insertion, 4 chamber heart with right and left ventricular outflow tracts, diaphragm, facial features and female gender are seen. The following measurements were obtained: Biparietal diameter 4.7 cm 20 weeks 1 day 53% Head circumference 17.5 cm 20 weeks 0 days 38% Abdominal circumference 15.3 cm 20 weeks 4 days 57% Femur length 3.1 cm 19 weeks 5 days 27% The composite ultrasound age based on these measurements is 20 weeks 1 day +/- 1 week 3 days. This correlates with dates based on the prior. US/US OB cervical length IMPRESSION: SINGLE LIVE INTRAUTERINE GESTATION WITH ULTRASOUND AGE OF 20 WEEKS 1 DAY. UNREMARKABLE ANATOMY SURVEY. ULTRASOUND OB CERVICAL LENGTH COMPARISON: 01/30/2025 The cervix was evaluated with a transvaginal probe. The cervix is closed and the estimated length is 4.2 cm. The end of the placenta is approximately 5.6 cm from the internal cervical os. IMPRESSION: NORMAL CLOSED CERVIX. Impression dictated by: Cyndi Pisano M.D. 04/04/2025 9:12 AM Dictation Location: [employer] Electronically authenticated by: [id number] Y Date: 04/04/2025 09:12 Dictated By: Cyndi Pisano M.D. Signed By: 04/04/25913 DD/ 1 TD/TT: Floorworker: [facility] Urinalysis macro (dipstick) panel (U)on 04-04-2025 Bilirubin, UA Negative Negative - 4(70) +++ mg/dL [facility] Blood, UA Negative Negative - 50 Jae/mcL [facility] Clarity, UA Clear [facility] Color, UA Straw [facility] Glucose, UA Negative Negative - 2000(110) ++++ mg/dL [facility] Interpretation and review of laboratory results Abnormal [facility] Ketones, UA Positive Negative - 160(16) ++++ mg/dL [facility] Leukocytes, UA Positive Negative - 500+++ Marsha/mcL [facility] Nitrite, UA Negative Negative - Positive [facility] pH, UA 6 5 - [address] [facility] Protein, UA Positive Negative - 2000(20) ++++ mg/dL [facility] Spec Grav, UA 1.02 1 - 1.[address] [facility] Urobilinogen, UA 1.0 0.2 - 12 mg/dL [facility] US OB LIMITED 1+ FETUSESon 0 03-14-2025 US OB LIMITED 1+ FETUSES FINDINGS: Cephalic presentation. Posterior placenta. heart rate 156. No evidence of significant amniotic band or subchronic hemorrhage. IMPRESSION: Normal viable fetus, no gestational sac abnormality TRANSCRIBED BY: ELECTRONICALLY SIGNED BY: Michael Eid MD Normal Not Available IGP,APTIMA HPV,AGE GDLNon AGE GDLN ACOG TESTING Note . [facility] Comment on above: TESTS RESULT FLAG UN ITS REF RANGE LAB Clinician Provided Cytology Information Source.............Endocervix No. of containers..01 ThinPrep Vial Age Algo ACOG Jessica... FLAG LEGEND: L-Low Normal,H-High Normal,LL-Alert Low,HH-Alert High <-Panic Low,>-Panic High,A-Abnormal,AA-Critical Abnormal Performed at: 01 =G [address] [address] Karena Lester MD, HPV APTIMA Negative Negative [facility] Comment on above: This nucleic acid am plification test detects fourteen high- risk HPV types (16,18,31,33,35,39,45,51,52,56,58,59,66,68) without differentiation. Performed at: =[address] [id number] Trouble Shooting Mechanic: Karena Lester MD, Phone: [phone] Performed at: [address] [id number] Trouble Shooting Mechanic: Karena Lester MD, Phone: [phone] IGP, APTIMA HPV, RFX 16/18,[address] [facility] Comment on above: TESTS RESULT FLAG UN ITS REF RANGE LAB DIAGNOSIS: 02 NEGATIVE FOR INTRAEPITHELIAL LESION OR MALIGNANCY. Specimen adequacy: 02 Satisfactory for evaluation. No endocervical component is identified. Performed by: 02 Calvin [employer] Airplane Designer ([facility]) . 02 Note: Note 02 The [...] High,A-Abnormal,AA-Critical Abnormal Performed at: 02 WB [facility] [address] [address] Karena Lester MD, SPATULA-ALONE ENDOCERVIX [facility] RECURRENT VAGINITIS (HTRX)on 03-09-2025 ATOPOBIUM VAGINAE [address] [facility] ATOPOBIUM VAGINAE Not detected [facility] BVAB 2,3 (BACTERIAL VAGINOSIS ASSOCIATED BACTERIA 2, 3); MOBILUNCUS SPP [address] [facility] BVAB 2,3 (BACTERIAL VAGINOSIS ASSOCIATED BACTERIA 2, 3); MOBILUNCUS SPP Not detected [facility] MITCH ALBICANS, PARAPSILOSIS, TROPICALIS [address] [facility] MITCH ALBICANS, PARAPSILOSIS, TROPICALIS Not detected [facility] MITCH GLABRATA [address] [facility] MITCH GLABRATA Not [facility] KRUSEI [facility] MIT[facility] KRUSEI Not detected [facility] CHLAMYDIA TRACHOMATIS 0 [facility] CHLAMYDIA TRACHOMATIS Not detected N [facility] GARDNERELLA VAGINALIS 0 [facility] GARDNERELLA VAGINALIS Not detected N [facility] MEGASPHAERA (TYPES 1, 2) 0 [facility] MEGASPHA[facility]A (TYPES 1, 2) Not detected [facility] MYCOPLASMA GENITALIUM 0 [facility] MYCOPLASMA GENITALIUM Not detected N [facility] NEISSERIA GONORRHOEAE 0 [facility] S [facility] NEISSERIA GONORRHOEAE Not detected N [facility] TRICHOMONAS VAGINALIS 0 [facility] TRICHOMONAS VAGINALIS Not detected N [facility] Urinalysis macro (dipstick) panel (U)on 03-07-2025 Bilirubin, UA Negative Negative - 4(70) +++ mg/dL [facility] Blood, UA Positive Negative - 50 Jae/mcL [facility] Clarity, UA Clear [facility] Color, UA Yellow [facility] Glucose, UA Negative Negative - 1999(110) ++++ mg/dL [facility] Interpretation and review of laboratory results Abnormal [facility] Ketones, UA Negative Negative - 160(16) ++++ mg/dL [facility] Leukocytes, UA Negative Negative - 500+++ Marsha/mcL [facility] Nitrite, UA Negative Negative - Positive [facility] pH, UA 6 5 - [address] [facility] Protein, UA Negative Negative - 2000(20) ++++ mg/dL [facility] Spec Grav, UA 1.02 1 - 1.[address] [facility] Urobilinogen, UA 1.0 0.2 - 12 mg/dL [facility] US OB < 14 WEEKS EARLYon US [...] UA Negative Negative - 4(70) +++ mg/dL [facility] Blood, UA Negative Negative - 50 Jae/mcL [facility] Clarity, UA Clear [facility] Color, UA Yellow [facility] Glucose, UA Negative Negative - 2000(110) ++++ mg/dL [facility] Interpretation and review of laboratory results Normal [facility] Ketones, UA Positive Negative - 160(16) ++++ mg/dL [facility] Leukocytes, UA Negative Negative - 500+++ Marsha/mcL [facility] Nitrite, UA Negative Negative - Positive [facility] pH, UA 5 5 - [address] [facility] Protein, UA Trace Negative - 2000(20) ++++ mg/dL [facility] Spec Grav, UA 1.03 1 - 1.[address] [facility] Urobilinogen, UA 1.0 0.2 - 12 mg/dL [facility] BOX TESTon 01-22-2025 BOX TEST SENT OUT YES [facility] BOX1 UNITY [facility] BOX2 01/22/[address] [facility] CLINIS[facility] US Pelvis transvaginalon EXAM: US OB TRANSVAGINAL [...] II, MD, PHD at 14-Jan-2025 10:04:37 PM [facility] Rosenda Torres MD - 01/14/2025 EXAM: [...] II, MD, PHD at 14-Jan-2025 10:04:37 PM [facility] US Pelvis transvaginalOrdere d By: Rosenda Torres on 01-14-[address] [facility] Work Phone: HCG ( test) Ql (U)o n 01-12-2025 Interpretation and review of laboratory results Abnormal [facility] Preg Test, Ur Positive Negative [facility] US OB TRANSVAGINALon 025 US OB TRANSVAGINAL [...] II, MD, PHD at 14-Jan-2025 10:04:37 PM [facility] Normal Not Available Comment on above: Order Comment: US OB TRANSVAGINAL No LMP recorded. US Pelvis transvaginalon Radiology Study observation (narrative) [facility] Urinalysis macro (dipstick) panel (U)on 01-12-2025 Bilirubin, UA Negative Negative - 4(70) +++ mg/dL [facility] Blood, UA Negative Negative - 50 Jae/mcL [facility] Clarity, UA Clear [facility] Color, UA Yellow [facility] Glucose, UA Negative Negative - 1999(110) ++++ mg/dL [facility] Interpretation and review of laboratory results Abnormal [facility] Ketones, UA Negative Negative - 160(16) ++++ mg/dL [facility] Leukocytes, UA Trace Negative - 500+++ Marsha/mcL [facility] Nitrite, UA Negative Negative - Positive [facility] pH, UA 7 5 - [address] [facility] Protein, UA Negative Negative - 1999(20) ++++ mg/dL [facility] Spec Grav, UA 1.02 1 - 1.[address] [facility] Urobilinogen, UA 0.2 0.2 - 12 mg/dL [facility] 25-hydroxyvitamin D3 [Mass/V ol]on 09-13-2024 25-hydroxyvitamin D [Mass/Vol] 26 ng/mL Low 30 - 100 ng/mL [facility] Comment on above: Vitamin D Status 25- [place] Vitamin D: Deficiency: <20 ng/mL Insufficiency: 20 - 29 ng/mL Optimal: > or = 30 ng/mL For 25-OH Vitamin D testing on patients on D2-supplementation and patients for whom quantitation of D2 and D3 fractions is required, the QuestAssureD(TM) 25-OH VIT D, (D2,D3), LC/MS/MS is recommended: order code 46076 (patients >2yrs). See Note 1 Note 1 For additional information, please refer to http://education.D square nv/faq/NPJ883 (This link is being provided for informational/ educational purposes only.) Interpretation and review of laboratory results Abnormal [facility] CBC (H/H, RBC, INDICES, WBC, PLT)on 09-13-2024 Erythrocyte distribution width (RBC) [Ratio] 12.3 % Normal 11.0-15.0 [facility] Comment on above: Performed By: #### 7 799, 19141, 66597, 918, 2865, 31869 #### [facility] [address], [address] [place] [id number] Body Make Up Artist: Brandon Camara MD Hematocrit (Bld) [Volume fraction] 38.8 % Normal 35.0-45.0 [facility] Comment on above: Performed By: #### 7 600, 84649, 80312, 927, 1758, #### [facility] [place] [address] Body Make Up Artist: Brandon Camara MD Hemoglobin (Bld) [Mass/Vol] 12.7 g/dL Normal 11.7-15.5 [facility] Comment on above: Performed By: #### 7 600, 04324, 13285, 92, 1758, #### [facility] [place] [address] Body Make Up Artist: Brandon Camara MD MCH (RBC) [Entitic mass] 28.4 pg Normal 27.0-33.0 [facility] Comment on above: Performed By: #### 7 600, 72957, 70793, 92, 1758, #### [facility] [place] [address] Body Make Up Artist: Brandon Camara MD MCHC (RBC) [Mass/Vol] 32.7 g/dL Normal 32.0-36.[address] [facility] Comment on above: Result Comment: For adults, a slight decrease in the calculated MCHC value (in the range of 30 to 32 g/dL) is most likely not clinically significant; however, it should be interpreted with caution in correlation with other red cell parameters and the patient's clinical condition. Performed By: #### 7 600, 73370, 62320, 92, 1758, #### [facility] [place] [address] Body Make Up Artist: Brandon Camara MD MCV (RBC) [Entitic vol] 86.8 fL Normal 80.0-100.0 [facility] Comment on above: Performed By: #### 7 600, 81195, 05691, 92, 175, #### [facility] [place] [address] Body Make Up Artist: Brandon Camara MD Platelet mean volume (Bld) [Entitic vol] 9.0 fL Normal 7.5-12.5 [facility] Comment on above: Performed By: #### 7 600, 70262, 65253, 927, 1759, 04328 #### [facility] of [address], [address] [place] [address] Body Make Up Artist: Brandon Camara MD Platelets (Bld) [#/Vol] 260 10*3/uL Normal 140-400 [facility] Comment on above: Performed By: #### 7 600, 80401, 76189, 927, 1759, 78107 #### [facility] [address], [address] [place] [address] Body Make Up Artist: Brandon Camara MD RBC (Bld) [#/Vol] 4.47 10*6/uL Normal 3.80-5.10 [facility] Comment on above: Performed By: #### 7 600, 45880, 27471, 927, 1759, 97376 #### [facility] of [place] [address] Body Make Up Artist: Brandon Camara MD WBC (Bld) [#/Vol] 5.5 10*3/uL Normal 3.8-10.8 [facility] Comment on above: Performed By: #### 7 600, 74815, 56744, 927, 1759, 92530 #### [facility] of [place] [address] Body Make Up Artist: Brandon Camara MD CBC panel Auto (Bld)on 09-13 Erythrocyte distribution width (RBC) [Ratio] 12.3 % 11.0 - 15.0 % [facility] Hematocrit (Bld) [Volume fraction] 38.8 % 35.0 - 45.0 % [facility] Hemoglobin (Bld) [Mass/Vol] 12.7 g/dL 11.7 - 15.5 g/dL [facility] MCH (RBC) [Entitic mass] 28.4 pg 27.0 - 33.0 pg [facility] MCHC (RBC) [Mass/Vol] 32.7 g/dL 32.0 - 36.0 g/dL [facility] Comment on above: For adults, a slight decrease in the calculated MCHC value (in the range of 30 to 32 g/dL) is most likely not clinically significant; however, it should be interpreted with caution in correlation with other red cell parameters and the patient's clinical condition. MCV (RBC) [Entitic vol] 86.8 fL 80.0 - 100.0 fL [facility] Platelet mean volume (Bld) [Entitic vol] 9 fL 7.5 - 12.5 fL [facility] Platelets (Bld) [#/Vol] 260 10*3/uL [facility] RBC (Bld) [#/Vol] 4.47 10*6/uL [facility] WBC (Bld) [#/Vol] 5.5 10*3/uL [facility] COMPREHENSIVE METABOLIC PANE L W/ANION GAPon 09-13-2024 Albumin [Mass/Vol] 4.8 g/dL Normal 3.6-5.1 [facility] Comment on above: Performed By: #### 7 600, 70956, 83357, 927, 1759, 49341 #### [facility] [place] [address] Body Make Up Artist: Brandon Camara MD ALP [Catalytic activity/Vol] 60 U/L Normal 31-125 [facility] Comment on above: Performed By: #### 7 600, 54045, 42949, 927, 1759, 17916 #### [facility] [address] Body Make Up Artist: Brandon Camara MD ALT [Catalytic activity/Vol] 14 U/L Normal 6-29 [facility] Comment on above: Performed By: #### 7 600, 60935, 82635, 927, 1759, 11248 #### [facility] [place] [address] Body Make Up Artist: Brandon Camara MD AST [Catalytic activity/Vol] 12 U/L Normal 10-30 [facility] Comment on above: Performed By: #### 7 600, 19302, 96148, 927, 175, #### [facility] of [place] [address] Body Make Up Artist: Brandon Camara MD Bilirubin [Mass/Vol] 0.4 mg/dL Normal 0.2-1.2 [facility] Comment on above: Performed By: #### 7 600, 79697, 83297, 927, 175, #### [facility] [place] [address] Body Make Up Artist: Brandon Camara MD Calcium [Mass/Vol] 9.6 mg/dL Normal 8.6-10.2 [facility] Comment on above: Performed By: #### 7 600, 74473, 59126, 927, 175, #### [facility] [place] [address] Body Make Up Artist: Brandon Camara MD Chloride [Moles/Vol] 102 mmol/L Normal 98-110 [facility] Comment on above: Performed By: #### 7 600, 07803, 56430, 927, 175, #### [facility] [place] [address] Body Make Up Artist: Brandon Camara MD CO2 [Moles/Vol] 28 mmol/L Normal 20-32 [facility] Comment on above: Performed By: #### 7 600, 19363, 40853, 927, 175, #### [facility] of [place] [address] Body Make Up Artist: Brandon Camara MD Creatinine [Mass/Vol] 0.86 mg/dL Normal 0.50-0.[address] [facility] Comment on above: Performed By: #### 7 600, 95041, 96235, 927, 175, #### [facility] of [place] [address] Body Make Up Artist: Brandon Camara MD ELECTROLYTE BALANCE 7 mmol/L (calc) Normal 7-17 [facility] Comment on above: Performed By: #### 7 600, 24434, 41670, 927, 1759, 30200 #### [facility] [place] [address] Body Make Up Artist: Brandon Camara MD GFR/1.73 sq M.predicted among non-blacks MDRD (S/P/Bld) [Vol rate/Area] 93 mL/min/{1.73_m2} Normal > OR = 60 [facility] Comment on above: Performed By: #### 7 600, 83931, 81212, 927, 1759, #### [facility] [place] [address] Body Make Up Artist: Brandon Camara MD Glucose [Mass/Vol] 90 mg/dL Normal 65-99 [facility] Comment on above: Result Comment: Fasting reference interval Performed By: #### 7 600, 37731, 34631, 927, 1759, #### [facility] [place] [address] Body Make Up Artist: Brandon Camara MD Potassium [Moles/Vol] 4.5 mmol/L Normal 3.5-5.[address] [facility] Comment on above: Performed By: #### 7 600, 72889, 48632, 927, 1759, #### [facility] [place] [address] Body Make Up Artist: Brandon Camara MD Protein [Mass/Vol] 7.4 g/dL Normal 6.1-8.1 [facility] Comment on above: Performed By: #### 7 600, 86913, 57956, 927, 1759, 13589 #### [facility] [place] [address] Body Make Up Artist: Brandon Camara MD Sodium [Moles/Vol] 137 mmol/L Normal 135-146 [facility] Comment on above: Performed By: #### 7 600, 45176, 89052, 927, 1759, 98644 #### [facility] [address], [address] [place] [address] Body Make Up Artist: Brandon Camara MD Urea nitrogen [Mass/Vol] 7 mg/dL Normal 7-25 [facility] Comment on above: Performed By: #### 7 600, 23169, 70131, 927, 1757, 11276 #### [facility] [address], [address] [place] [address] Body Make Up Artist: Brandon Camara MD Comprehensive metabolic 2000 panelon 09-13-2024 Albumin [Mass/Vol] 4.8 g/dL 3.6 - 5.1 g/dL [facility] ALP [Catalytic activity/Vol] 60 U/L 31 - 125 U/L [facility] ALT [Catalytic activity/Vol] 14 U/L 6 - 29 U/L [facility] Anion gap [Moles/Vol] 7 mmol/L [facility] AST [Catalytic activity/Vol] 12 U/L 10 - 30 U/L [facility] Bilirubin [Mass/Vol] 0.4 mg/dL 0.2 - 1 .2 mg/dL [facility] Calcium [Mass/Vol] 9.6 mg/dL 8.6 - 10. 2 mg/dL [facility] Chloride [Moles/Vol] 102 mmol/L 98 - 11 0 mmol/L [facility] CO2 [Moles/Vol] 28 mmol/L 20 - 32 mmol/L [facility] Creatinine [Mass/Vol] 0.86 mg/dL 0.50 - 0.97 mg/dL [facility] GFR/1.73 sq M.predicted among non-blacks MDRD (S/P/Bld) [Vol rate/Area] 93 mL/min/{1.73_m2} > OR = 60 mL/min/1.73m2 [facility] Glucose [Mass/Vol] 90 mg/dL 65 - 99 mg/dL [facility] Comment on above: Fasting reference interval Potassium [Moles/Vol] 4.5 mmol/L 3.5 - 5.3 mmol/L [facility] Protein [Mass/Vol] 7.4 g/dL 6.1 - 8.1 g/dL [facility] Sodium [Moles/Vol] 137 mmol/L 135 - 146 mmol/L [facility] Urea nitrogen [Mass/Vol] 7 mg/dL 7 - 25 mg/dL [facility] LIPID PANEL, STANDARDon 02- Cholesterol [Mass/Vol] 167 mg/dL Normal <200 [facility] Comment on above: Order Comment: FASTI NG:YES FASTING: YES Performed By: #### 7 600, 30149, 49327, 927, 1759, 62439 #### [facility] [address], [address] [place], [place] [address] Body Make Up Artist: Brandon Camara MD Cholesterol in HDL [Mass/Vol] 52 mg/dL Normal > OR = 50 [facility] Comment on above: Order Comment: FASTI NG:YES FASTING: YES Performed By: #### 7 600, 64979, 07694, 927, 1759, 39415 #### [facility] [address], [address] [place], [place] [address] Body Make Up Artist: Brandon Camara MD Cholesterol in LDL [Mass/Vol] [...] LDL-C. Tres RODRIGEZ et al. STEPHANIE. 2013;310(19): 1173-0555 (http://education.[place].OpenNews/faq/FUG028) Performed By: #### 7 600, 18553, 17722, 927, 1759, 43611 #### [facility] [address], [address] [place], [place] [address] Body Make Up Artist: Brandon Camara MD Cholesterol.total/Chol esterol in HDL [Mass ratio] 3.2 {ratio} Normal <5.0 [facility] Comment on above: Order Comment: FASTI NG:YES FASTING: YES Performed By: #### 7 600, 53425, 89904, 927, 1759, 32632 #### [facility] [address], [address] [place] [address] Body Make Up Artist: Brandon Camara MD NON HDL CHOLESTEROL 115 mg/dL (calc) Normal <130 [facility] Comment on above: Order Comment: FASTI NG:YES FASTING: YES Result Comment: For patients with diabetes plus 1 major ASCVD risk factor, treating to a non-HDL-C goal of <100 mg/dL (LDL-C of <70 mg/dL) is considered a therapeutic option. Performed By: #### 7 600, 49180, 69806, 927, 1759, 85567 #### [facility] [place] [address] Body Make Up Artist: Brandon Camara MD Triglyceride [Mass/Vol] 103 mg/dL Normal <150 [facility] Comment on above: Order Comment: FASTI NG:YES FASTING: YES Performed By: #### 7 600, 23687, 13157, 927, 1759, 88213 #### [facility] [place] [address] Body Make Up Artist: Brandon Camara MD Lipid 1996 panelon 5 Cholesterol [Mass/Vol] 167 mg/dL NINF - 200 mg/dL [facility] Cholesterol in HDL [Mass/Vol] 52 mg/dL > OR = 50 [facility] Cholesterol in LDL [Mass/Vol] 95 mg/dL mg/dL (calc) [facility] Comment on above: Reference range: <10 0 Desirable range <100 mg/dL for primary prevention; <70 mg/dL for patients with CHD or diabetic patients with > or = 2 CHD risk factors. LDL-C is now calculated using the Dean calculation, which is a validated novel method providing better accuracy than the Friedewald equation in the estimation of LDL-C. Tres RODRIGEZ et al. STEPHANIE. 2013;310(19): 5270-8890 (http://education.D square nv/faq/GJQ688) Cholesterol non HDL [Mass/Vol] 115 mg/dL [facility] Comment on above: For patients with di abetes plus 1 major ASCVD risk factor, treating to a non-HDL-C goal of <100 mg/dL (LDL-C of <70 mg/dL) is considered a therapeutic option. Cholesterol.total/Chol esterol in HDL [Mass ratio] 3.2 {ratio} [facility] Triglyceride [Mass/Vol] 103 mg/dL [facility] - 150 mg/dL [facility] No Panel Informationon 09-13 FASTING:YES FASTING: YES [facility] W/REFLEX TO FT4on 2024 TSH W/REFLEX TO FT4 2.63 mIU/L Normal [facility] Comment on above: Result Comment: Refe rence Range > or = 20 Years 0.40-4.50 Ranges First trimester 0.26-2.66 Second trimester 0.55-2.73 Third trimester 0.43-2.91 Performed By: #### 7 600, 60885, 31140, 927, 1759, 72498 #### [facility] [address], [address] [place], [place] [address] Body Make Up Artist: Brandon Camara MD TSH with reflex to Free T4 i f abnormalon 09-13-2024 TSH Qn 2.63 m[IU]/L mIU/L [facility] Comment on above: Reference Range > or = 20 Years 0.40-4.50 Ranges First trimester 0.26-2.66 Second trimester 0.55-2.73 Third trimester 0.43-2.91 VITAMIN B12on 09-13-2024 Cobalamin (Vitamin B12) [Mass/Vol] 402 pg/mL Normal 200-1100 [facility] Comment on above: Performed By: #### 7 600, 63369, 35922, 927, 1759, 50301 #### [facility] [address], [address] [place] [address] Body Make Up Artist: Brandon Camara MD VITAMIN D,25-OH,TOTAL,IAon 0 09-13-2024 VITAMIN D,25-OH,TOTAL,IA 26 ng/mL Low 30-100 [facility] Comment on above: Result Comment: Stefanie min D Status 25-OH Vitamin D: Deficiency: <20 ng/mL Insufficiency: 20 - 29 ng/mL Optimal: > or = 30 ng/mL For 25-OH Vitamin D testing on patients on D2-supplementation and patients for whom quantitation of D2 and D3 fractions is required, the QuestAssureD(TM) 25-OH VIT D, (D2,D3), LC/MS/MS is recommended: order code 77410 (patients >2yrs). See Note 1 Note 1 For additional information, please refer to http://education.[place].OpenNews/faq/HNB421 (This link is being provided for informational/ educational purposes only.) Performed By: #### 7 600, 31178, 59820, 927, 1759, 00524 #### [facility] [address], [address] [place] [address] Body Make Up Artist: Brandon Camara MD Vitamin B12on 09-13-2024 Cobalamin (Vitamin B12) [Mass/Vol] 402 pg/mL 200 - 1100 pg/mL [facility] Quantiferon-TB Plus (Client Incubated)on 04-02-2024 Gamma interferon background IA Qn (Bld) 0.01 International_Unit/mL Invalid Interpretation Code [facility] Comment on above: Performed By: #### 1 [id number] #### [facility] [address] [place] [address] M. tuberculosis stim IFN-g by CD4+ CD8+ T-cells corrected for background Qn (Bld) 0.02 International_Unit/mL Invalid Interpretation Code [facility] Comment on above: Performed By: #### 1 [id number] #### [facility] [address] [place] [address] M. tuberculosis stim IFN-g by CD4+ T-cells corrected for background Qn (Bld) 0.03 International_Unit/mL Invalid Interpretation Code [facility] Comment on above: Performed By: #### 1 [id number] #### [facility] [address] [place] [address] M. tuberculosis stim IFN-g Ql (Bld) [Interp] Negative Invalid Interpretation Code Negative [facility] Comment on above: Result Comment: No [...] interferon gamma. Chemiluminescence immunoassay methodology Performed at: [facility] [address] [id number] PhD Leeanne Garcia Performed By: #### 1 [id number] #### [facility] [address] [place], [place] [address] Mitogen stimulated gamma interferon corrected for background Qn (Bld) >10.00 Invalid Interpretation Code [facility] Comment on above: Performed By: #### 1 [id number] #### [facility] [address] [place] [address] Service comment (Unsp spec) [Interp] Comment Invalid Interpretation Code [facility] Comment on above: Result Comment: Be [...] for the test. Performed By: #### 1 [id number] #### [facility] [address] [place] [address] Hep Bs Abon 03-31-2024 HBV surface Ab Ql (S) Reactive Invalid Interpretation Code [facility] Comment on above: Result Comment: Non Reactive: Not immune to HBV infection. Equivocal: Unable to determine if anti-HBs is present at levels consistent with immunity. Reactive: Anti-HBs concentration detected at greater than 10 mIU/mL. Individual is considered to be immune to infection with HBV. Performed at: [facility] [address] [place], [place] [id number] PhD Leeanne Garcia Performed By: #### 2 [id number] #### [facility] [address] [place] [address] Measles/Mumps/Rubella Immuni tyon 03-31-2024 MeV IgG IA Qn (S) 206.0 A unit/mL Invalid Interpretation Code Immune >16.4 [facility] Comment on above: Result Comment: Nega tive <13.5 Equivocal 13.5 - 16.4 Positive >16.4 Presence of antibodies to Rubeola is presumptive evidence of immunity except when acute infection is suspected. Performed By: #### 3 [id number] #### [facility] [address] [place] [address] MuV IgG IA Qn (S) 38.5 A unit/mL Invalid Interpretation Code Immune >10.9 [facility] Comment on above: Result Comment: Nega tive <9.0 Equivocal 9.0 - 10.9 Positive >10.9 A positive result generally indicates past exposure to Mumps virus or previous vaccination. Performed at: [facility] [address] [place] [id number] PhD Leeanne Garcia Performed By: #### 3 [id number] #### [facility] [address] [place] [address] Rubella virus IgG Qn (S) 1.07 [IU]/mL Invalid Interpretation Code Immune >0.99 [facility] Comment on above: Result Comment: Non- immune <0.90 Equivocal 0.90 - 0.99 Immune >0.99 Performed By: #### 3 [id number] #### [facility] [address] [place] [address] Varic IgGon 03-31-2024 VZV IgG IA Qn (S) 1518 Invalid Interpretation Code Immune >165 [facility] Comment on above: Result Comment: Nega tive <135 Equivocal 135 - 165 Positive >165 A positive result generally indicates exposure to the pathogen or administration of specific immunoglobulins, but it is not indication of active infection or stage of disease. Performed at: [facility] [id number] PhD Leeanne Garcia Performed By: #### 1 [id number] #### [facility] [address] [place] [address] Consent Formson 12-16-2023 Consent Forms [id number]#[id number] Normal [facility] ED Clinical Summaryon 2023 ED Clinical Summary [facility] ? Urgent Care [address] [place] [address] Clinical Summary PERSON INFORMATION Name: PRINCESS GUERRERO Age: 28 Years Sex: FEMALE : 1995 MRN: Acct#: Visit Reason: Medical screening exam; [facility] Arrival: 12/15/2023 11:27:18 Discharge: 12/15/2023 11:57:00 LOS: 000 00:30 Check In: 12/15/2023 11:27:18 Checkout: 12/15/2023 11:57:00 Address: [address] [place] [address] PCP: Provider, None PROVIDER INFORMATION Provider Role [...] blood pressure. With: Address: When: None Provider [address] [place] [address] DIAGNOSIS: Elevated blood pressure reading; Physical exam Patient Understands: Yes - Patient/family/caregiv er verbalizes understanding of instructions given Comment: Normal [facility] ED Patient Summaryon 024 ED Patient Summary [facility] ? Urgent Care [address] [place] [address] PATIENT DISCHARGE INSTRUCTIONS Patient Information Name: PRINCESS GUERRERO Age: 28 Years Date of : 1995 Reason For Visit: Medical screening exam; [facility] Arrival Time: 12/15/2023 11:27:18 Primary Care Physician: Provider, None Attending Physician: TARAS FAUSTIN Comment: Patient Education With: Address: When: Your primary provider in your hometown Within 2 to 4 days Comments: Follow-up for reevaluation of your blood pressure. With: Address: When: None Provider [address] [place] [address] Hypertension, Adult High blood pressure (hypertension) is [...] chicken wit (more content not included)... Normal [facility] Note- Provideron 12-15-2023 Urgent Care [...] - pharynx pink and moist. NECK: -Supple ([id number]): non-tender. CARD: -Rate and rhythm: Regular RESP: [...] Plan Assessment and Plan: Diagnosis: Physical exam (OKY39-SK Z00.00), Elevated blood pressure reading (FGI32-TK R03.0). Cleared for employment [Electronically Signed on: 12/15/2023 11:52 EDT] TARAS FAUSTIN [Verified on: 12/15/2023 11:52 EDT] TARAS FAUSTIN [facility] [place] 024 Urgent Care Record [facility] ? Urgent Care [address] [id number] PATIENT DISCHARGE INSTRUCTIONS Patient Information Name: PRINCESS [...] blood pressure. With: Address: When: None Provider [address] [place] [address] Medication Information: The exam and treatment you received today in the [facility] were for an urgent problem and are not intended as complete care. It is important for you to follow up with a doctor, nurse practitioner, or physician?s school office assistant for ongoing care. If your symptoms [...] so we can reach you if necessary. [facility] has provided you with a complete list of medications post discharge. Please inform your non profit job titles/provider of your visit and for further instruction [...] much fat, sugar, (more content not included)... [facility] 08-04-2023 L Specimen: [id number] Received: 08/04/23 Status: LAZARA Lyn Num: [id number] Spec Type: Surgical Subm Dr: Willis Chen Tissues: A Placenta - 3rd Trimester (Greater than 28 weeks) (PLACENTA) Procedures: HE/3, Gross/Micro L5 Age/ Patient Sex Location Account Attending Physician Princess Cantu 27/F [facility] [id number] Willis Chen SPEC NUM: [id number] RECD: 08/04/23 STATUS: LAZARA LYN NUM: [id number] JOSE: 08/04/23 SUBM : Willis Chen ENTERED: 08/04/23 [facility] [...] parenchyma up to 3.1 cm in thickness. Stage Producer sections are submitted in 3 cassettes as follows: A1 - membranes, umbilical cord, and decidua basalis A2 - Central placenta full-thickness A3 - Peripheral placenta, full-thickness ---- Specimen: [id number] Received: 08/04/23 Status: LAZARA Lyn Num: [id number] Spec Type: Surgical Subm Dr: Willis Chen Tissues: A Placenta - 3rd Trimester (Greater than 28 weeks) (PLACENTA) Procedures: HE/Tru, Gross/Micro L5 ---- Patient: Princess Cantu [id number] (Continued) ---- Specimen: [id number] Received: 08/04/23 (Continued) Signed (signature on file) Juliet Sykes MD 08/08/232229 ---- Specimen: [id number] Received: 08/04/23 Status: LAZARA Lyn Num: [id number] Spec Type: Surgical Subm Dr: Willis Chen Tissues: A Placenta - 3rd Trimester (Greater than 28 weeks) (PLACENTA) Procedures: HE/3, Gross/Micro L5 ---- Patient: Princess Cantu [id number] (Continued) ---- Specimen: [id number] Received: 08/04/23 (Continued) CPT Codes 97209 ---- ---- Specimen: [id number] Received: 08/04/23 Status: LAZARA Santiagoreagan Num: [id number] Spec Type: Surgical Subm Dr: Willis Chen Tissues: A Placenta - 3rd Trimester (Greater than 28 weeks) (PLACENTA) Procedures: /Tru, Gross/Micro L5 ---- Patient: Princess Cantu [id number] (Continued) ---- Signed (signature on file) Juliet Sykes MD 08/08/232229 [facility] DHEA SERUMon 11-20-2022 Dehydroepiandrosterone (DHEA) 656 ng/dL Normal 31-701 [facility] Comment on above: Performed By: #### D LAMAR. #### [facility] [address] [place] [address] [address] Vish Brown ANTI-MULLERIAN HORMONEon Anti-Mullerian Hormone (AMH) 4.47 ng/mL Normal [facility] Comment on above: Result Comment: For assays employing antibodies, the possibility exists for interference by heterophile antibodies in the samples.1 1.Favio Campos Interferences in Immunoassays - still a threat. Clin. Chem. 2000; 46: 9316-5366. This test was developed and its performance characteristics determined by [employer]. It has not been cleared or approved by the Food and Drug Administration. Reference Range: Females 26 - 30y: 1.03 - 11.10 Median 4.20 AMH concentrations of >= 1.06 ng/mL is correlated with a better response to ovarian stimulation, produced more retrievable oocytes and higher odds of live according to Gabi et al. Fertility and Sterility. 2010: 94:2585-0534. The current AMH test method correlates with [...] AMH-secreting ovarian tumor. Performed By: #### L [facility] #### [facility] [address] [place], [place] [address] Dr. Vish Brown DHEA-SULFATEon 11-17-2022 DHEA-Sulfate 449.0 ug/dL Critically high 84.8-378.0 [facility] Comment on above: Performed By: #### L [facility] #### [facility] [address] [place], [place] [address] Dr. Vish Brown ESTRADIOLon 11-17-2022 Estradiol 34.3 pg/mL Normal [facility] Comment on above: Result Comment: Adul t Female: Follicular phase 12.5 - 166.0 Ovulation phase 85.8 - 498.0 Luteal phase 43.8 - 211.0 Postmenopausal <6.0 - 54.7 1st trimester 215.0 - >4300.0 [place] ECLIA methodology Performed By: #### E CHLOE #### [facility] [address] [place] [address] Dr. Vish Brown FSHon 11-17-2022 FSH 6.1 mIU/mL Normal [facility] Comment on above: Result Comment: Adul t Female: Follicular phase 3.5 - 12.5 Ovulation phase 4.7 - 21.5 Luteal phase 1.7 - 7.7 Postmenopausal 25.8 - 134.8 Performed By: #### L [facility] #### [facility] [address] [place] [address] Dr. Vish Brown LUTEINIZING HORMONE (LH)on 0 11-17-2022 LH 4.5 mIU/mL Normal [facility] Comment on above: Result Comment: Adul t Female: Follicular phase 2.4 - 12.6 Ovulation phase 14.0 - 95.6 Luteal phase 1.0 - 11.4 Postmenopausal 7.7 - 58.5 Performed By: #### L SUHAS #### [facility] [address] [place] [address] Dr. Vish Brown PROGESTERONEon 11-17-2022 Progesterone 0.8 ng/mL Normal [facility] Comment on above: Result Comment: Foll icular phase 0.1 - 0.9 Luteal phase 1.8 - 23.9 Ovulation phase 0.1 - 12.0 First trimester 11.0 - 44.3 Second trimester 25.4 - 83.3 Third trimester 58.7 - 214.0 Postmenopausal 0.0 - 0.1 Performed By: #### P TASNEEM #### [facility] [address] [place] [address] Dr. Vish Brown CBC AUTO DIFFon 11-16-2022 BASO # 0.0 103/ul Normal 0.0-0.1 [facility] Comment on above: Performed By: #### L SUHAS #### [facility] [address] [place] [address] Dr. Vish Brown Basophils/100 WBC (Bld) 0.5 % Normal 0.2-2.0 [facility] Comment on above: Performed By: #### L SUHAS #### [facility] [address] [place] [address] Dr. Vish Brown EO # 0.3 103/ul Normal 0.0-0.7 [facility] Comment on above: Performed By: #### L BCL #### [facility] [address] [place] [address] Dr. Vish Brown Eosinophils/100 WBC (Bld) 4.0 % Normal 0.9-7.0 [facility] Comment on above: Performed By: #### L BCL #### [facility] [address] [place] [address] Dr. Vish Brown Erythrocyte distribution width (RBC) [Ratio] 12.0 % Normal 11.0-15.0 [facility] Comment on above: Performed By: #### L BCL #### [facility] [address] [place] [address] Dr. Vish Brown Hematocrit (Bld) [Volume fraction] 39.1 % Normal 36.0-48.0 [facility] Comment on above: Performed By: #### L BCL #### [facility] [address] [place] [address] Dr. Vish Brown Hemoglobin (Bld) [Mass/Vol] 13.0 g/dL Normal 12.0-16.0 [facility] Comment on above: Performed By: #### L BCL #### [facility] [address] [place] [address] Dr. Vish Brown IG # 0.02 10e3/ul Normal 0.00-0.03 [facility] Comment on above: Performed By: #### L BCL #### [facility] [address] [place] [address] Dr. Vish Brown IG % 0.3 % Normal 0.0-0.5 [facility] Comment on above: Performed By: #### L BCL #### [facility] [address] [place] [address] Dr. Vish Brown LYMPH # 2.5 103/ul Normal 1.2-3.8 [facility] Comment on above: Performed By: #### L BCL #### [facility] [address] [place] [address] Dr. Vish Brown Lymphocytes/100 WBC (Bld) 32.4 % Normal 20.5-60.0 [facility] Comment on above: Performed By: #### L BRUNA #### [facility] [address] [place] [address] Dr. Vish Brown MANUAL DIFF REQ NO Normal [facility] Comment on above: Performed By: #### L BRUNAH #### [facility] [address] [place] [address] Dr. Vish Brown MCH (RBC) [Entitic mass] 29.9 pg Normal 26.7-34.0 [facility] Comment on above: Performed By: #### L BRUNAH #### [facility] [address] [place] [address] Dr. Vish Brown MCHC (RBC) [Mass/Vol] 33.2 g/dL Normal 29.9-35.2 [facility] Comment on above: Performed By: #### L BRUNA #### [facility] [address] [place] [address] Dr. Vish Brown MCV (RBC) [Entitic vol] 89.9 fL Normal 81.0-99.0 [facility] Comment on above: Performed By: #### L BRUNA #### [facility] [address] [place] [address] Dr. Vish Brown MONO # 0.6 103/ul Normal 0.3-0.8 [facility] Comment on above: Performed By: #### L BCL #### [facility] [address] [place] [address] Dr. Vish Brown Monocytes/100 WBC (Bld) 7.4 % Normal 1.7-12.0 [facility] Comment on above: Performed By: #### L BCLH #### [facility] [address] [place] [address] Dr. Vish Brown NEUT # 4.3 103/ul Normal 1.4-6.5 [facility] Comment on above: Performed By: #### L BRUNAH #### [facility] [address] [address] [address] Vish Brown Neutrophils/100 WBC (Bld) 55.4 % Normal 43.0-75.0 [facility] Comment on above: Performed By: #### L BCL #### [facility] [address] [place] [address] Dr. Vish Brown Platelet mean volume (Bld) [Entitic vol] 9.0 fL Critically low 9.5-13.5 [facility] Comment on above: Performed By: #### L BCL #### [facility] [address] [place] [address] Dr. Vish Brown PLT 277 103/ul Normal 150-450 [facility] Comment on above: Performed By: #### L BCLH #### [facility] [address] [place] [address] Dr. Vish Brown RBC 4.35 106/ul Normal 4.20-5.40 [facility] Comment on above: Performed By: #### L BCLH #### [facility] [address] [place] [address] Dr. Vish Brown WBC 7.7 103/ul Normal 4.0-11.0 [facility] Comment on above: Performed By: #### L BCL #### [facility] [address] [place] [address] Dr. Vish Brown FREE T4on 11-16-2022 Free T4 [Mass/Vol] 1.08 ng/dL Normal 0.76-1.46 [facility] Comment on above: Performed By: #### F T4 #### [facility] [address] [place] [address] Dr. Vish Brown GLYCOHEMOGLOBIN A1Con 2022 ADA RECOMMENDATION SEE BELOW Normal [facility] Comment on above: Result Comment: ADA RECOMMENDED LIMIT 4.0 - 6.0 ADA THERAPEUTIC TARGET < 7.0 ACTION SUGGESTED > 7.0 Performed By: #### A 1C #### [facility] [address] [place] [address] Dr. Vish Brown Glucose [Mass/Vol] 94 mg/dL Normal [facility] Comment on above: Performed By: #### A 1C #### [facility] [address] [place] [address] Dr. Vish Brown HbA1c (Bld) [Mass fraction] 4.9 % Normal 4.5-6.2 [facility] Comment on above: Performed By: #### A 1C #### [facility] [address] [place] [address] Dr. Vish Brown PREG QUANT HCGon 11-16-2022 HCG QUANT <1 Normal [facility] Comment on above: Performed By: #### P REGQNT, TSH #### [facility] [address] [place] [address] Dr. Vish Brown HCG RANGE SEE BELOW Normal [facility] Comment on above: Result Comment: 5-50 0.2-1 WEEK 50-500 1-2 WEEKS 100-5,000 2-3 WEEKS 500-10,000 3-4 WEEKS 1,000-50,000 4-5 WEEKS 10,000-100,000 5-6 WEEKS 15,000-200,000 6-8 WEEKS 10,000-100,000 2-3 MONTHS Performed By: #### P REGQNT, TSH #### [facility] [address] [place] [address] Dr. Vish Brown TSHon 11-16-2022 TSH 2.030 uIU/mL Normal 0.358-3.740 [facility] Comment on above: Performed By: #### P REGQNT, TSH #### [facility] [address] [place] [address] Dr. Vish Brown HM 19-49 Yearson 07-31-2022 [...] Screening.on 023 Adult depression screening assessment No [employer] [employer] Work Phone: Fall risk assessment a) No falls within the last year [facility]CVY[facility] Work Phone: Tobacco use status [facility] b) No TS-SBJK[facility] Work Phone: B-HCG SerPl-aCncon 2 HCG.beta subunit Qn m[IU]/mL Normal <5.0 [facility] Comment on above: Order Comment: Speci men Type: BLOOD SPECIMENOrdering Facility: [facility] Address: [address] [place] [address] Result Comment: Negalison kyle Performed By: #### G CCT #### [facility] [address] [place] [address] BACTERIAL VAGINOSIS AMPLIFIC ATIONon 04-16-2022 Lactobacillus crispatus+gasseri+freddy enii + Gardnerella vaginalis + Atopobium vaginae rRNA HUMERA+probe Ql (Vag fld) Negative Normal Negative for bacterial vaginosis [facility] Comment on above: Order Comment: Speci men Type: SWAB Ordering Facility: [facility] Address: [address] [place] [address] Performed By: #### C VTV, BVAMP #### [facility] CLIA [id number] [address] [place] [address] [place] C. trachomatis+N. gonorrhoea e DNA HUMERA+probe Ql (Unsp spec)on 04-16-2022 C. trachomatis DNA HUMERA+probe Ql (Unsp spec) Negative Normal Negative for Chlamydia trachomatis by amplificaton [facility] Comment on above: Order Comment: Speci men Type: SWAB Ordering Facility[facility] Address: [address] [place] [address] Performed By: #### C VTV, BVAMP #### [facility] CLIA [id number] [address] [place] [address] N. gonorrhoeae DNA HUMERA+probe Ql (Unsp spec) Negative Normal Negative for Neisseria gonorrhoeae by amplification [facility] Comment on above: Order Comment: Speci men Type: SWAB Ordering Facility[facility] Address: [address] [place] [address] Performed By: #### C VTV, BVAMP #### [facility] CLIA [id number] [address] [place] [address] OF ONI MITCH / TRICHOMONAS AMPLIF ICATIONon 04-16-2022 MITCH / TRICHOMONAS AMPLIFICATION [employer] RNA: Negative for Mitch species MITCH GLABRATA RNA: Negative for Mitch glabrata TRICH VAG AMPLIFICATION RNA: Negative for Trichomonas vaginalis by amplification Normal [facility] Comment on above: Performed By: #### C VTV, BVAMP #### [facility] CLIA [id number] [address] [place] [address] OF ONI CNCOon 04-16-2022 CNCO Letter Text Letter Text Normal [facility] CNOVon 04-16-2022 [facility] PRINCESS CANTU ([id number]) 1995 F Date Time Provider Department 04/16/22 8:00 AM BRENDAN BLANKENSHIP During your visit today, [...] History Social History Narrative 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 I, Brendan Blankenship, have reviewed this information as documented for accuracy and performed all elements of history taking, and edited the record as necessary. ROS: SEE HPI PE: GENERAL: well-appearing, in no acute distress LUNGS: Normal inspiratory effort GENERAL SUPERINTENDENT: Normal external genitalia, no vaginal bleeding, small [...] Order(s):MITCH / TRICHOMONAS AMPLIFICATION [SQCVTV] Order #: [id number]. #:[id number] BACTERIAL VAGINOSIS AMPLIFICATION [SQBVAMP] Order #: [id number]. #:[id number] GC/CHLAMYDIA DNA DET [SQGCCAMP] Order #: [id number]. #:[id number] SYPHILIS TOTAL W/REFLEX [SQSYPHTX] Order #: [id number] FUTURE HIV 1 2 COMBO(AG/AB),WITH REFLEX TO DIFFERENTIATION [SQHIV12] Order #: [id number] FUTURE HEP C AB IA W/CONF SCRN [CNBIHE5Y] Order #: [id number] FUTURE HEP B SURF AG SCRN [SQHBSAG] Order #: [id number] FUTURE Prescriptions as of 04/16/2022 - lamoTRIgine [...] Status:Closed by BRENDAN BLANKENSHIP on 04/16/22 Normal [facility] HBV surface Ab IA Ql (S)on 0 04-16-2022 HBV surface Ag Ql (S) Negative Normal Negative [facility] Comment on above: Order Comment: Speci men Type: BLOOD SPECIMENOrdering Facility: [facility] Address: [address] [place] [address] Performed By: #### G CCT #### [place] [phone] HCV Ab Ser Qlon 04-16-2022 HCV Ab Ql (S) Negative Normal Negative [facility] Comment on above: Order Comment: Speci men Type: BLOOD SPECIMEN [facility] Address: [address] [place] [address] Result Comment: The result suggests no evidence of active infection with Hepatitis C virus. Should recent infection be suspected, repeat testing may be considered 4-6 weeks after this draw. Performed By: #### 1 6128-1 #### [facility] CLIA [id number] [address] [place] [address] OF [facility] HIV 1+2 Ab IA Qlon 2 HIV 1 and 2 Ab IA.rapid Nom Normal [facility] Comment on above: Order Comment: Speci men Type: BLOOD SPECIMENOrdering Facility: [facility] Address: [address] [place] [address] Result Comment: Test not indicated. Performed By: #### G CCT #### [place] [phone] HIV 1+2 Ab+HIV1 p24 Ag IA Ql Non-Reactive Normal Nonreactive [facility] Comment on above: Order Comment: Speci men Type: BLOOD SPECIMENOrdering Facility: [facility] Address: [address] [place] [address] Performed By: #### G CCT #### [place] [address] HIVINT Normal [facility] Comment on above: Order Comment: Speci men Type: BLOOD SPECIMENOrdering Facility: [facility] Address: [address] [place] [address] Result Comment: No e vidence of HIV-1 or HIV-2 infection. Should recent infection be suspected, repeat testing may be considered 2-3 weeks after this draw. [place] Rev. Code 3701.243(E): This information has been [...] diagnoses. Performed By: #### G CCT #### [place] [phone] Reagin and Treponema pallidu m IgG and IgM [Interp]on 04-16-2022 SYPHILIS INTERPRETATION Cannot exclude recent Treponemal infection if specimen collected within 7-10 days after appearance of suspect lesions or 2-3 weeks after an exposure. Clinical correlation is required. Normal [facility] Comment on above: Order Comment: Speci men Type: BLOOD SPECIMENOrdering Facility: [facility] Address: [address] [place] [address] Performed By: #### G CCT #### [place] [phone] T. pallidum IgG+IgM IA Ql (S) Non-Reactive Normal Nonreactive [facility] Comment on above: Order Comment: Speci men Type: BLOOD SPECIMENOrdering Facility: [facility] Address: [address] [place] [address] Performed By: #### G CCT #### [place] [address] CHEMISTRYOrdered By: SYSTEM SYSTEM on 03-24-2022 HCG.beta subunit Qn 1 m[IU]/mL Normal 1 - 3 mIU/mL FTM C Remisol CNPNon 03-24-2022 CNPN Telephone ([facility]) PRINCESS CANTU ([id number]) 1995 F Date Time Provider Department 03/24/22 KAVITA SWEET [facility] During your visit today, we recorded the [...] Fully Assessed Reason for Visit: Bleeding With [02798] Primary Visit Diagnosis:Bleeding in early [O20.9] Order(s):HCG QUANTITATIVE [SQHCGQT] Order #: [id number] FUTURE Prescriptions as of 03/24/2022 - metroNIDAZOLE [...] Status:Closed by BRENDAN SOUZA on 03/24/22 [facility] 03-19-2022 CNPN Telephone (OBGYCC) PRINCESS CANTU ([id number]) 1995 F Date Time Provider Department 03/19/22 [facility] During your visit today, we recorded [...] Status:Closed by MARY ONOFRE on 03/19/22 Normal [facility] Office Visit (Neuro-General) on 12-24-2021 Follow-up [...] bowel/bladder incontinence. She was taken to [facility] in [place]. She had lab work and a CT [...] DAILY. Vitals Vital Signs Recorded: 24Dec2021 11:32AM Dzesxjrqzaj99.1 F Heart Rate54 Gcznscxr709 Zovdtrlgx70 Height5 ft 9 in Vmooqw914 lb 1.6 oz BMI Myddoaekwz81.03 kg/m2 BSA Calculated2.11 Tobacco Useb) No Fall Screeninga) No falls within the last year O2 Kbkjkyzwvn894, RA Physical Exam Constitutional: General appearance: no [...] Dec 24 2021 11:37AM EST (Author) Normal [employer] Tobacco Screening.on 022 Fall risk assessment a) No falls within the last year [facility] -viseto DO Work Phone: Tobacco use status [facility] b) No [facility] -Eugene SJ DO Work Phone: Office Visit (Primary Care [...] Nov 17 2021 1:34PM EST (Author) Normal [employer] Tobacco Screening.on 022 Adult depression screening assessment No [employer] Work Phone: Fall risk assessment a) No falls within the last year [employer] Phone: Tobacco use status [facility] b) No XA-LQIC-[employer] Phone: Bact Vag Amplificationon Bact Vag Amplification Positive Criticall y abnormal Negative for bacterial vaginosis [facility] Comment on above: Performed By: #### G CCT #### [facility] [employer] [address] [place], [place] [address] CNOVon 09-09-2021 CNOV Office Visit (OB[facility] ) PRINCESS CANTU ([id number]) 1995 F Date Time Provider Department 09/09/21 10:00 AM BRENDAN BLANKENSHIP During your visit today, we recorded the following information about you: Pulse Blood pressure Weight Height 73/minute 141/80 96.3 kg 1.727 m Last Period 08/13/21 Brendan Blankenship PA-C 09/09/2021 10:17 AM Signed Princess Alison Cantu is a 25 year old year [...] History Social History Narrative 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 Portions of this record were documented by the Gate Supervisor. I, Brendan Blankenship, have reviewed this information as documented for accuracy and performed all elements of history taking, and edited the record as necessary. ROS: SEE HPI PE: GENERAL: well-appearing, in no acute distress LUNGS: Normal inspiratory effort GENERAL SUPERINTENDENT: Small amount yellow mucus discharge, cervix NL. [...] Order(s):MITCH / TRICHOMONAS AMPLIFICATION [SQCVTV] Order #: [id number] BACTERIAL VAGINOSIS AMPLIFICATION [SQBVAMP] Order #: [id number] GC/CHLAMYDIA DNA DET [SQGCCAMP] Order #: [id number] metroNIDAZOLE (FLAGYL) 500 mg tabletTake 1 tablet [...] Encounter Status:Closed (more content not included)... Normal [facility] Mitch Trich Amplon 022 Mitch glabrata RNA Negative Normal Negative [facility] Comment on above: Performed By: #### G CCT #### [place] [phone] [place] [address] Mitch sp group RNA Negative Normal Negative [facility] Comment on above: Performed By: #### G CCT #### [place] [phone] [place] [address] Trichomonas RNA Negative Normal [facility] Comment on above: Performed By: #### G CCT #### [place] [phone] [place] [address] GC/Chlamydia Amplifon 2021 Chlamydia Amplif Negative Normal [facility] Comment on above: Performed By: #### G CCT #### [facility] [address] [address] GC Amplification Negative Normal [facility] Comment on above: Performed By: #### G CCT #### [place] [phone] [place] [address] GC/Chlam Amp Source Cervix Normal [facility] Comment on above: Performed By: #### G CCT #### [address] [id number] Bact Vag Amplificationon Bact Vag Amplification Negative Normal Negat ko for bacterial vaginosis [facility] Comment on above: Performed By: #### C VTV, BVAMP #### [facility] CLIA [id number] [address] [facility] [address] STATES OF [facility] CNOVon 07-04-2021 CNOV Office Visit (OBGYCC ) PRINCESS CANTU ([id number]) 1995 F [facility] Date Time Provider Department 07/04/21 4:00 PM [facility] [facility] During your visit today, we recorded the following information about you: Pulse Blood pressure Weight Height 74/minute 131/86 95.7 kg 1.727 m Last Period 06/07/21 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 APRN.LOAD TEST MECHANIC 07/04/2021 4:39 PM Signed Princess is a [...] Ectopic0 Multiple0 Live Births0 Comment: Menarche 10 Chief Wellness Officer History LMP: 06/07/2021 (Exact Date), Having periods Age at Menarche: Age at First : Age at Menopause: Chief Wellness Officer History Comments: Sexual Activity: Yes; Male; same [...] external genitalia normal, normal Bartholin's glands, urethra, Little Browning's glands, no vulvar lesions, no cervical lesions, [...] type of detergents for washing undergarments, wiping gpopi-ca-gywk, sleep in loose shorts without underwear, shower [...] test loo (more content not included)... Normal [facility] Mitch Trich Amplon 07-04-2 021 Mitch glabrata RNA Negative Normal Negative [facility] Comment on above: Performed By: #### C VTV, BVAMP #### [facility] CLIA [id number] [address] [place] [address] [place] Mitch sp group RNA Negative Normal Negative [facility] Comment on above: Performed By: #### C VTV, BVAMP #### [facility] CLIA [id number] [address] [place] [address] [place] Trichomonas RNA Negative Normal [facility] Comment on above: Performed By: #### C VTV, BVAMP #### [facility] CLIA [id number] [address] [place], [place] [address] [place] [address] [place] GC/Chlamydia Amplifon 2020 Chlamydia Amplif Negative Normal [facility] Comment on above: Performed By: #### G CCT #### [place] [address] GC Amplification Negative Normal [facility] Comment on above: Performed By: #### G CCT #### [place] [address] GC/Chlam Amp Source Cervix Normal [facility] Comment on above: Performed By: #### G CCT #### [place] [address] Tobacco Screening.on 021 Fall risk assessment a) No falls within the last year [facility] -[place] SJW DO Work Phone: Tobacco use status [facility] b) No [facility] -[place] SJW DO Work Phone: GC + Chlamydia By Amplified Detectionon 05-20-2021 C. trachomatis rRNA HUMERA+probe Ql (Unsp spec) Negative Negative [facility]RGCF[facility] Work Phone: Comment on above: The APTIMA Combo 2 a ssay is FDA-approved for Chlamydia trachomatis and Neisseria gonorrhoeae testing on female endocervical and vaginal swabs, ThinPrep liquid pap samples, male urine samples and urethral swabs. Performance characteristics for Chlamydia trachomatis and Neisseria gonorrhoeae testing on specific law-VID-rhoydmzl sample types (female urine samples) have been validated by [facility]. This laboratory is certified by CLIA to perform high complexity testing. Samples from all other sites are not validated for this method. N. gonorrhoeae rRNA HUMERA+probe Ql (Unsp spec) Negative Negative [facility]Z-AVDK-[place] Work Phone: Comment on above: SOURCE: Urine The AP KELSIE Combo 2 assay is FDA-approved for Chlamydia trachomatis and Neisseria gonorrhoeae testing on female endocervical and vaginal swabs, ThinPrep liquid pap samples, male urine samples and urethral swabs. Performance characteristics for Chlamydia trachomatis and Neisseria gonorrhoeae testing on specific xbj-MKK-xsyngkdx sample types (female urine samples) have been validated by [facility]. This laboratory is certified by CLIA to perform high complexity testing. Samples from all other sites are not validated for this method. TSHon 12-24-2020 TSH Qn 2.30 m[IU]/L Normal 0.44 - 3.98 [facility] Comment on above: Result Comment: TSH testing is performed using different testing methodology at [facility] than at other [facility]. Direct result comparisons should only be made within the same method. Performed By: #### T SH2 #### [address] [address] TSH - Thyroid Stimulating Ho rmone, Serumon 12-24-2020 TSH Qn 2.30 m[IU]/L See Below [employer] Work Phone: Comment on above: Reference Range: 0.4 4 - 3.98 TSH testing is performed using different testing methodology at [facility] than at other [facility]. Direct result comparisons should only be made within the same method. Tobacco Screening.on 021 Fall risk assessment a) No falls within the last year [employer] Work Phone: Tobacco use status CPHS b) No [employer] Work Phone: CBCon 08-14-2020 Erythrocyte distribution width (RBC) [Ratio] 13.2 % Normal 11.5 - 14.5 [facility] Comment on above: Performed By: #### C BC #### [address] [address] Hematocrit (Bld) [Volume fraction] 39.5 % Normal 36.0 - 46.0 [facility] Comment on above: Performed By: #### C BC #### [address] [address] Hemoglobin (Bld) [Mass/Vol] 13.0 g/dL Normal 12.0 - 16.0 [facility] Comment on above: Performed By: #### C BC #### [address] [address] MCHC (RBC) [Mass/Vol] 32.9 g/dL Normal 32.0 - 36.0 [facility] Comment on above: Performed By: #### C BC #### [address] [address] MCV (RBC) [Entitic vol] 91 fL Normal 80 - 100 [facility] Comment on above: Performed By: #### C BC #### [address] [address] NUCLEATED RBC 0.0 /100 WBC Normal 0.0 - 0.0 [facility] Comment on above: Performed By: #### C BC #### [address] [address] Platelets (Bld) [#/Vol] 235 10*3/uL Normal 150 - 450 [facility] Comment on above: Performed By: #### C BC #### [address] [address] RBC 4.33 x10E12/L Normal 4.00 - 5.20 [facility] Comment on above: Performed By: #### C BC #### [address] [address] WBC (Bld) [#/Vol] 5.8 10*3/uL Normal 4.4 - 11.3 [facility] Comment on above: Performed By: #### C BC #### [address] [address] COMPREHENSIVE PANELon 2020 Albumin [Mass/Vol] 4.7 g/dL Normal 3.4 - 5.0 [facility] Comment on above: Performed By: #### C MP #### [address] [address] ALP [Catalytic activity/Vol] 53 U/L Normal 33 - 110 [facility] Comment on above: Performed By: #### C MP #### [address] [place] [address] ALT [Catalytic activity/Vol] 41 U/L Normal 7 - 45 [facility] Comment on above: Result Comment: Desiree ents treated with Sulfasalazine may generate falsely decreased results for ALT. Performed By: #### C MP #### [address] [address] Anion gap [Moles/Vol] 10 mmol/L Normal 10 - 20 [facility] Comment on above: Performed By: #### C MP #### [address] [address] AST [Catalytic activity/Vol] 27 U/L Normal 9 - 39 [facility] Comment on above: Performed By: #### C MP #### [address] [address] Bilirubin [Mass/Vol] 0.6 mg/dL Normal 0.0 - 1.2 [facility] Comment on above: Performed By: #### C MP #### [address] [address] Calcium [Mass/Vol] 9.5 mg/dL Normal 8.6 - 10.3 [facility] Comment on above: Performed By: #### C MP #### [address] [address] Chloride [Moles/Vol] 105 mmol/L Normal 98 - 107 [facility] Comment on above: Performed By: #### C MP #### [address] [address] Creatinine [Mass/Vol] 0.93 mg/dL Normal 0.50 - 1.05 [facility] Comment on above: Performed By: #### C MP #### [address] [address] GFR- AM. >60 Normal >60 [facility] Comment on above: Result Comment: CALC ULATIONS OF ESTIMATED GFR ARE PERFORMED USING THE MDRD STUDY EQUATION FOR THE IDMS-TRACEABLE CREATININE METHODS. CLIN CHEM 2007;53:766-72 Performed By: #### C MP #### [address] [place] [address] GFR-NON AM. >60 Normal >60 [facility] Comment on above: Performed By: #### C MP #### [address] [address] Glucose [Mass/Vol] 94 mg/dL Normal 74 - 99 [facility] Comment on above: Performed By: #### C MP #### [address] [address] HCO3 (Bld) [Moles/Vol] 28 mmol/L Normal 21 - 32 [facility] Comment on above: Performed By: #### C MP #### [address] [address] Potassium [Moles/Vol] 4.4 mmol/L Normal 3.5 - 5.3 [facility] Comment on above: Performed By: #### C MP #### [address] [address] Protein [Mass/Vol] 7.3 g/dL Normal 6.4 - 8.2 [facility] Comment on above: Performed By: #### C MP #### [address] [address] Sodium [Moles/Vol] 139 mmol/L Normal 136 - 145 [facility] Comment on above: Performed By: #### C MP #### [address] [address] Urea nitrogen [Mass/Vol] 13 mg/dL Normal 6 - 23 [facility] Comment on above: Performed By: #### C MP #### [address] [address] Hematologyon 08-14-2020 Hematocrit (Bld) [Volume fraction] 39.5 % See Below MP-Neurology [facility] Work Phone: Comment on above: Reference Range: 36. 0 - 46.0 Hemoglobin (Bld) [Mass/Vol] 13.0 g/dL See Below [facility] Work Phone: Comment on above: Reference Range: 12. 0 - 16.0 MCV (RBC) [Entitic vol] 91 fL 80 - 100 -Neurology -Eugene SJW DO Work Phone: Platelets (Bld) [#/Vol] 235 {x10E9/L} 150 - 450 MP-Neurology -Eugene SJW DO Work Phone: RBC (Bld) [#/Vol] 4.33 {x10E12/L} See Below -Neurology -Eugene SJW DO Work Phone: Comment on above: Reference Range: 4.0 0 - 5.20 WBC (Bld) [#/Vol] 5.8 {x10E9/L} 4.4 - 11.3 -N eurology -Vinson SJW DO Work Phone: WBC (Bld) [#/Vol] 0.0 {/100_WBC} 0.0 - 0.0 - Neurology -Eugene SJW DO Work Phone: LAMOTRIGINE- LAMICTALon - LAMOTRIGINE- LAMICTAL 6.4 ug/mL Normal 2.5 - 15.0 [facility] Comment on above: Performed By: #### L AMOT #### [facility] [address] [place] [address] Lamotrigine Level, Serumon 0 08-14-2020 Lamotrigine [Mass/Vol] 6.4 ug/mL 2.5 - 15.0 -Neurology -[facility]inson SJW DO Work Phone: Metabolic Panelon 08-14-2020 ALP [Catalytic activity/Vol] 53 U/L 33 - 110 -Neurology -Eugene SJW DO Work Phone: Anion gap [Moles/Vol] 10 mmol/L 10 - 20 - Neurology -Vinson SJW DO Work Phone: Bilirubin [Mass/Vol] 0.6 mg/dL 0.0 - 1.2 MP-N eurology -[facility] DO Work Phone: Calcium [Mass/Vol] 9.5 mg/dL 8.6 - 10.3 -Jozef rology -Eugene SJ DO Work Phone: Chloride [Moles/Vol] 105 mmol/L 98 - 107 -N eurology -[facility]inson SJW DO Work Phone: CO2 [Moles/Vol] 28 mmol/L 21 - 32 MP-Neurol ogy -[facility] DO Work Phone: Creatinine [Mass/Vol] 0.93 mg/dL See Below - Neurology -Eugene SJW DO Work Phone: Comment on above: Reference Range: 0.5 0 - 1.05 Glucose [Mass/Vol] 94 mg/dL 74 - 99 -Jozef roly -[facility]inson SJW DO Work Phone: Potassium [Moles/Vol] 4.4 mmol/L 3.5 - 5.3 - Neurology -[facility] DO Work Phone: Protein [Mass/Vol] 7.3 g/dL 6.4 - 8.2 -Jozef roly -[facility]inson SJW DO Work Phone: Sodium [Moles/Vol] 139 mmol/L 136 - 145 -Jozef roly -[facility]inson SJW DO Work Phone: Urea nitrogen [Mass/Vol] 13 mg/dL 6 - 23 -Neurology -[facility]inson S[facility]W DO Work Phone: Otheron 08-14-2020 Albumin BCP dye [Mass/Vol] 4.7 g/dL 3.4 - 5.0 -Neurology -[facility] DO Work Phone: ALT With P-5'-P [Catalytic activity/Vol] 41 U/L 7 - 45 -Neurology -Vinson SJW DO Work Phone: Comment on above: Patients treated wit h Sulfasalazine may generate falsely decreased results for ALT. AST With P-5'-P [Catalytic activity/Vol] 27 U/L 9 - 39 -[employer] [facility] [employer] DO Work Phone: Erythrocyte distribution width (RBC) [Ratio] 13.2 % See Below [facility] [employer] DO Work Phone: Comment on above: Reference Range: 11. 5 - 14.5 MCHC (RBC) [Mass/Vol] 32.9 g/dL See Below - [employer] [facility] [employer] DO Work Phone: Comment on above: Reference Range: 32. 0 - 36.0 >60 >60 -[employer] [facility] Work Phone: Comment on above: CALCULATIONS OF MICHAEL MATED GFR ARE PERFORMED USING THE MDRD STUDY EQUATION FOR THE IDMS-TRACEABLE CREATININE METHODS. CLIN CHEM 2007;53:766-72 MRI BRAIN W WO CONTRASTon There are no acute intracranial changes, no evidence of ischemia or hemorrhage. There are no regions of signal abnormality. There are no areas of abnormal enhancement after contrast administration. [place], [place] EXAMINATION: MRI BRA IN W WO [...] The calvarium and soft tissues are unremarkable. [place], [place] Judah, Chpo Incoming Radiant Results From [email or web address] - 05/09/2020 3:02 PM EDT EXAMINATION: MRI [...] areas of abnormal enhancement after contrast administration. [place], [place] MRI BRAIN W WO CONTRAST EXAMINATION: [...] Final result Normal [facility] CBC With Platelet and Differ entialon 04-19-2020 Basophils (Bld) [#/Vol] 0.1 10*3/uL Normal 0.0-0.2 [facility] Comment on above: Performed By: #### C BCWD #### [facility] [address] [place] [address] Basophils/100 WBC (Bld) 0.4 % Normal [facility] Comment on above: Performed By: #### C BCWD #### [facility] [address] [place] [address] Eosinophils (Bld) [#/Vol] 0.5 10*3/uL Normal 0.0-0.7 [facility] Comment on above: Performed By: #### C BCWD #### [facility] [address] [place] [address] Eosinophils/100 WBC (Bld) 4.2 % Normal [facility] Comment on above: Performed By: #### C BCWD #### [facility] [address] [place] [address] Erythrocyte distribution width (RBC) [Ratio] 12.5 % Normal 11.5-14.5 [facility] Comment on above: Performed By: #### C BCWD #### [facility] [address] [place] [address] Hematocrit (Bld) [Volume fraction] 39.4 % Normal 37.0-47.0 [facility] Comment on above: Performed By: #### C BCWD #### [facility] [address] [place] [address] Hemoglobin (Bld) [Mass/Vol] 13.3 g/dL Normal 12.0-16.0 [facility] Comment on above: Performed By: #### C BCWD #### [facility] [address] [place] [address] Lymphocytes (Bld) [#/Vol] 3.2 10*3/uL Normal 1.0-4.8 [facility] Comment on above: Performed By: #### C BCWD #### [facility] [address] [place] [address] Lymphocytes/100 WBC (Bld) 26.9 % Normal [facility] Comment on above: Performed By: #### C BCWD #### [facility] [address] [place] [address] MCH (RBC) [Entitic mass] 29.8 pg Normal 27.0-31.3 [facility] Comment on above: Performed By: #### C BCWD #### [facility] [address] [place] [address] MCHC (RBC) [Mass/Vol] 33.8 % Normal 33.0-37.0 [facility] Comment on above: Performed By: #### C BCWD #### [facility] [address] [place] [address] MCV (RBC) [Entitic vol] 88.4 fL Normal 82.0-100.0 [facility] Comment on above: Performed By: #### C BCWD #### [facility] [address] [place] [address] Monocytes (Bld) [#/Vol] 0.8 10*3/uL Normal 0.2-0.8 [facility] Comment on above: Performed By: #### C BCWD #### [facility] [address] [place] [address] Monocytes/100 WBC (Bld) 6.8 % Normal [facility] Comment on above: Performed By: #### C BCWD #### [facility] [address] [place] [address] Neutrophils (Bld) [#/Vol] 7.3 10*3/uL Critically high 1.4-6.5 [facility] Comment on above: Performed By: #### C BCWD #### [facility] [address] [place] [address] Neutrophils/100 WBC (Bld) 61.7 % Normal [facility] Comment on above: Performed By: #### C BCWD #### [facility] [address] [place] [address] Platelets (Bld) [#/Vol] 314 10*3/uL Normal 130-400 [facility] Comment on above: Performed By: #### C BCWD #### [facility] [address] [place] [address] RBC (Bld) [#/Vol] 4.45 10*6/uL Normal 4.20-5.40 [facility] Comment on above: Performed By: #### C BCWD #### [facility] [address] [place] [address] WBC (Bld) [#/Vol] 11.9 10*3/uL Critically high 4.8-10.8 [facility] Comment on above: Performed By: #### C BCWD #### [facility] [address] [place] [address] CT HEAD WO CONTRASTon 2019 CT HEAD [...] De Jesus DO 04/19/20 Final result Normal [facility] Comprehensive Metabolic Pane crescencio 04-19-2020 Albumin [Mass/Vol] 4.9 g/dL Critically high 3.5-4.6 M [facility] Comment on above: Performed By: #### C MP #### [facility] [address] [place] [address] ALP [Catalytic activity/Vol] 40 U/L Normal 40-130 [facility] Comment on above: Performed By: #### C MP #### [facility] [address] [place] [address] ALT [Catalytic activity/Vol] 17 U/L Normal 0-33 [facility] Comment on above: Performed By: #### C MP #### [facility] [address] [place] [address] Anion gap [Moles/Vol] 14 mmol/L Normal 9-15 [facility] Comment on above: Performed By: #### C MP #### [facility] [address] [place] [address] AST [Catalytic activity/Vol] 17 U/L Normal 0-35 [facility] Comment on above: Performed By: #### C MP #### [facility] [address] [place] [address] Bilirubin [Mass/Vol] mg/dL Normal 0.2-0.7 [facility] Comment on above: Performed By: #### C MP #### [facility] [address] [place] [address] Calcium [Mass/Vol] 10.0 mg/dL Critically high 8.5-9.9 [facility] Comment on above: Performed By: #### C MP #### [facility] [address] [place] [address] Chloride [Moles/Vol] 101 mmol/L Normal 95-107 [facility] Comment on above: Performed By: #### C MP #### [facility] [address] [place] [address] CO2 [Moles/Vol] 24 mmol/L Normal 20-31 [facility] Comment on above: Performed By: #### C MP #### [facility] [address] [place] [address] Creatinine [Mass/Vol] 0.87 mg/dL Normal 0.50-0.90 [facility] Comment on above: Performed By: #### C MP #### [facility] [address] [place] [address] GFR/1.73 sq M predicted among blacks MDRD (S/P/Bld) [Vol rate/Area] mL/min/{1.73_m2} Normal >60 [facility] Comment on above: Result Comment: >60 mL/min/1.73m2 EGFR, calc. for ages 18 and older using the MDRD formula (not corrected for weight), is valid for stable renal function. Performed By: #### C MP #### [facility] [address] [place] [address] GFR/1.73 sq M.predicted MDRD (S/P/Bld) [Vol rate/Area] mL/min/{1.73_m2} Normal >60 [facility] Comment on above: Result Comment: >60 mL/min/1.73m2 EGFR, calc. for ages 18 and older using the MDRD formula (not corrected for weight), is valid for stable renal function. Performed By: #### C MP #### [facility] [address] [place] [address] Globulin (S) [Mass/Vol] 3.1 g/dL Normal 2.3-3.5 [facility] Comment on above: Performed By: #### C MP #### [facility] [address] [place] [address] Glucose [Mass/Vol] 94 mg/dL Normal 70-99 [facility] Comment on above: Performed By: #### C MP #### [facility] [address] [place] [address] Potassium [Moles/Vol] 3.9 mmol/L Normal 3.4-4.9 [facility] Comment on above: Performed By: #### C MP #### [facility] [address] [place] [address] Protein [Mass/Vol] 8.0 g/dL Normal 6.3-8.0 [facility] Comment on above: Performed By: #### C MP #### [facility] [address] [place] [address] Sodium [Moles/Vol] 139 mmol/L Normal 135-144 [facility] Comment on above: Performed By: #### C MP #### [facility] [address] [place] [address] Urea nitrogen [Mass/Vol] 12 mg/dL Normal 6-20 [facility] Comment on above: Performed By: #### C MP #### [facility] [address] [place] [address] Lactic Acidon 04-19-2020 Lactate [Moles/Vol] 1.8 mmol/L Normal 0.5-2.2 [facility] Comment on above: Performed By: #### L ACID #### [facility] [address] [place] [address] Prolactinon 04-19-2020 Prolactin 160.8 ng/mL Normal [facility] Comment on above: Result Comment: Defa ult Normal Ranges Female Male Non: 4.8-23.3 4.0-15.2 Performed By: #### P JAISON #### [facility] [address] [place] [address] Serum HCG Qualitativeon HCG.beta subunit Qn Negative Normal [facility] Comment on above: Performed By: #### S HCG #### [facility] [address] [place] [address] Urinalysis, reflex to cultur emily 04-19-2020 Urine Reflexed to Culture Not Indicated Normal [facility] Comment on above: Performed By: #### U AR #### [facility] [address] [place] [address] Bilirubin Ql (U) Negative Normal Negative [facility] Comment on above: Performed By: #### U AR #### [facility] [address] [place] [address] Clarity (U) Clear Normal Clear [facility] Comment on above: Performed By: #### U AR #### [facility] [address] [place] [address] Color (U) Yellow Normal Straw/Coamo [facility] Comment on above: Performed By: #### U AR #### [facility] [address] [place] [address] Glucose Ql (U) Negative Normal Negative [facility] Comment on above: Performed By: #### U AR #### [facility] [address] [place] [address] Hemoglobin Ql (U) Trace-intact Normal Negative [facility] Comment on above: Performed By: #### U AR #### [facility] [address] [place] [address] Ketones Ql (U) Negative Normal Negative [facility] Comment on above: Performed By: #### U AR #### [facility] [address] [place] [address] Leukocyte esterase Test strip Ql (U) Negative Normal Negative [facility] Comment on above: Performed By: #### U AR #### [facility] [address] [place] [address] Nitrite Ql (U) Negative Normal Negative [facility] Comment on above: Performed By: #### U AR #### [facility] [address] [place] [address] pH (U) 6.0 [pH] Normal 5.0-9.0 [facility] Comment on above: Performed By: #### U AR #### [facility] [address] [place] [address] Protein Ql (U) Negative Normal Negative [facility] Comment on above: Performed By: #### U AR #### [facility] [address] [place] [address] Specific gravity (U) [Rel density] 1.020 Normal 1.005-1.03 [facility] Comment on above: Performed By: #### U AR #### [facility] [address] [place] [address] Urobilinogen Qn (U) 0.2 {Alan'U}/dL Normal < 2.0 [facility] Comment on above: Performed By: #### U AR #### [facility] [address] [place] [address] Urine Microscopicon 04-19-20 20 Epithelial cells LM Ql (Urine sed) 0-2 Normal [facility] Comment on above: Performed By: #### U ARELY #### [facility] [address] [place] [address] RBC (U) [#/Vol] 0-2 Normal 0-2 [facility] Comment on above: Performed By: #### U ARELY #### [facility] [address] [place] [address] WBC (U) [#/Vol] 0-2 Normal 0-5 [facility] Comment on above: Performed By: #### U ARELY #### [facility] [address] [place] [address] CBC Auto Differentialon 10-0 -2019 Basophils (Bld) [#/Vol] 0.1 10*3/uL 0 - 0.2 K/uL [place] Basophils/100 WBC (Bld) 0.4 % [place] Eosinophils (Bld) [#/Vol] 0.5 10*3/uL 0 - 0.7 K/uL [place] Eosinophils/100 WBC (Bld) 4.2 % [place] Erythrocyte distribution width (RBC) [Ratio] 12.5 % 11.5 - 14.5 % [place] Hematocrit (Bld) [Volume fraction] 39.4 % 37 - 47 % [place] Hemoglobin (Bld) [Mass/Vol] 13.3 g/dL 12 - 16 g/dL [place] Interpretation and review of laboratory results Abnormal [place] Lymphocytes (Bld) [#/Vol] 3.2 10*3/uL 1 - 4.8 K/uL [place] Lymphocytes/100 WBC (Bld) 26.9 % [place] MCH (RBC) [Entitic mass] 29.8 pg 27 - 31.3 pg [place] MCHC (RBC) [Mass/Vol] 33.8 % 33 - 37 % [place] MCV (RBC) [Entitic vol] 88.4 fL 82 - 100 fL [place] Monocytes (Bld) [#/Vol] 0.8 10*3/uL 0.2 - 0.8 K/uL [place] Monocytes/100 WBC (Bld) 6.8 % [place] Neutrophils Absolute 7.3 K/uL High 1.4 - 6.5 K/uL [place] Neutrophils/100 WBC (Bld) 61.7 % [place] Platelets (Bld) [#/Vol] 314 10*3/uL 130 - 400 K/uL [place] RBC (Bld) [#/Vol] 4.45 10*6/uL [place] WBC (Bld) [#/Vol] 11.9 10*3/uL High 4.8 - 10.8 K/uL [place] Comprehensive Metabolic Pane crescencio 04-18-2020 Albumin [Mass/Vol] 4.9 g/dL High 3.5 - 4.6 g/dL [place] ALP [Catalytic activity/Vol] 40 U/L 40 - 130 U/L [place] ALT [Catalytic activity/Vol] 17 U/L 0 - 33 U/L [place] Anion gap [Moles/Vol] 14 mmol/L [place] AST [Catalytic activity/Vol] 17 U/L 0 - 35 U/L [place] Bilirubin Ql (U) <0.2 0.2 - 0.7 mg/dL [place] Calcium [Mass/Vol] 10.0 mg/dL High 8.5 - 9.9 mg/dL [place] Chloride [Moles/Vol] 101 mmol/L [place] CO2 [Moles/Vol] 24 mmol/L [place] Creatinine [Mass/Vol] 0.87 mg/dL 0.5 - 0.9 mg/dL [place] GFR >60.0 >60 [place] Comment on above: >60 mL/min/1.73m2 EG FR, calc. for ages 18 and older using the MDRD formula (not corrected for weight), is valid for stable renal function. GFR Non- >60.0 >60 [place] Comment on above: >60 mL/min/1.73m2 EG FR, calc. for ages 18 and older using the MDRD formula (not corrected for weight), is valid for stable renal function. Globulin (S) [Mass/Vol] 3.1 g/dL 2.3 - 3.5 g/dL [place] Glucose [Mass/Vol] 94 mg/dL 70 - 99 mg/dL [place] Interpretation and review of laboratory results Abnormal [place] Potassium [Moles/Vol] 3.9 mmol/L [place] Protein [Mass/Vol] 8.0 g/dL 6.3 - 8 g/dL [place] Sodium [Moles/Vol] 139 mmol/L [place], [place] Urea nitrogen [Mass/Vol] 12 mg/dL 6 - 20 mg/dL [place] HCG Qualitative, Serumon hCG Qual Negative [place] Lactic Acid, Plasmaon 2019 Lactate [Moles/Vol] 1.8 mmol/L 0.5 - 2. 2 mmol/L [place] Microscopic Urinalysison Epithelial Cells, UA 0-2 /HPF [place] RBC (U) [#/Vol] 0-2 [place] WBC, UA 0-2 [place] Urine Reflex to Cultureon Bilirubin Urine Negative Negative [place] Blood, Urine Trace-intact Negative [place] Clarity, UA Clear Clear [place] Color, UA Yellow Straw/Yellow [place] Glucose, Ur Negative Negative mg/dL [place] Ketones Ql (U) Negative Negative mg/dL [place] Leukocyte esterase Test strip Ql (U) Negative Negative [place] Nitrite, Urine Negative Negative [place] pH, UA 6.0 [place] Protein (U) [Mass/Vol] Negative Negative mg/d L [place] Specific [place], UA 1.020 [place] Urine Reflex to Culture Not Indicated [place] Urobilinogen, Urine 0.2 <2.0 E.U./dL [place] ECHOCARDIOGRAPHY REPORT (HL) on 05-10-2017 ECHOCARDIOGRAPHY REPORT (HL) [facility] [id number] 179.6F 1.09b2JefakdoapqWOASUE VASCULAR LABReferring: Koffi Uriarte A.Reading: CURTIS GARCIA [...] 4 CH 16.1 cm2LA Volume Indexed 21.05 ml/a2Zkxpgvedc/Systoli c FunctionMV E-wave Vmax 0.884 m/secMV deceleration time 193 msecMV A-wave Vmax 0.494 m/secLV septal e' Vmax 0.115 m/secLV lateral e' Vmax 0.189 m/secLV E:e' septal ratio 7.7 ratio [facility] PRINCESS CANTU [id number] [place] [address] [id number] 93Jackie Uriarte MDECHOCARDIOGRAPHY REPORTLV E:e' lateral ratio [...] evidence ofpulmonic regurgitation. [facility]ANTU [id number] [place] [address] [id number] 93Jackie Uriarte MDECHOCARDIOGRAPHY REPORTPericardium:Ther e is no [...] echocardiogram.PARAS CHOW05/10/2017 10:26:53 [facility] PRINCESS CANTU [id number] [place] [address] [id number] 93Jackie Uriarte MDECHOCARDIOGRAPHY REPORT Normal [facility] BASIC METABOLIC PANELon 10- Anion gap 10 mmol/L Normal 6-18 [facility] Comment on above: Order Comment: Is pa tient fasting? YES Performed By: #### L BMP, LGFRP ####[facility] [id number] [place] [address] Calcium 9.6 mg/dL Normal 8.6-10.3 [facility] Comment on above: Order Comment: Is pa tient fasting? YES Performed By: #### L BMP, LGFRP ####[facility] [id number] [place] [address] Chloride 101 mmol/L Normal 98-107 [facility] Comment on above: Order Comment: Is pa tient fasting? YES Performed By: #### L BMP, LGFRP ####[facility] [id number] [place] [address] CO2 27 mmol/L Normal 21-32 [facility] Comment on above: Order Comment: Is pa tient fasting? YES Performed By: #### L BMP, LGFRP ####[facility] [id number] [place] [address] Creatinine 0.74 mg/dL Normal 0.5-1.05 [facility] Comment on above: Order Comment: Is pa tient fasting? YES Performed By: #### L BMP, LGFRP ####[facility] [id number] [place] [address] Glucose mass conc 82 mg/dL Normal 74-99 [facility] Comment on above: Order Comment: Is pa tient fasting? YES Performed By: #### L BMP, LGFRP ####[facility] [id number] [place] [address] Potassium molar conc 4.1 mmol/L Normal 3.5-5.3 [facility] Comment on above: Order Comment: Is pa tient fasting? YES Performed By: #### L BMP, LGFRP ####[facility] [id number] [place] [address] Sodium 134 mmol/L Low 136-145 [facility] Comment on above: Order Comment: Is pa tient fasting? YES Performed By: #### L BMP, LGFRP ####[facility] [id number] [place] [address] Urea nitrogen 14 mg/dL Normal 6-23 [facility] Comment on above: Order Comment: Is pa tient fasting? YES Performed By: #### L BMP, LGFRP ####[facility] [id number] [place] [address] CBC AUTOon 05-04-2017 Erythrocyte distribution width Auto Ratio (RBC) 12.8 % Normal 11.5-14.5 [facility] Comment on above: Performed By: #### L CBC ####[facility] [address] [place] [address] Erythrocytes (RBC) 4.65 10*6/uL Normal 3.5-5.5 [facility] Comment on above: Performed By: #### L CBC ####[facility] [address] [place] [address] Hematocrit (HCT) 41.1 % Normal 36.0-48.0 [facility] Comment on above: Performed By: #### L CBC ####[facility] [address] [place] [address] Hemoglobin mass conc (Bld) 13.8 g/dL Normal 12.0-15.0 [facility] Comment on above: Performed By: #### L CBC ####[facility] [address] [place] [address] MCH 29.7 pg Normal 25.4-34.6 [facility] Comment on above: Performed By: #### L CBC ####[facility] Lnvneoqmro58007 [place] [address] MCHC mass conc (RBC) 33.6 g/dL Normal 30.0-36.0 [facility] Comment on above: Performed By: #### L CBC ####[facility] [address] [place] [address] MCV 88.4 fL Normal 79.0-98.0 [facility] Comment on above: Performed By: #### L CBC ####[facility] Rnzfimhsrt41997 [place] [address] Platelet mean volume (PMV) 9.3 fL Normal 8.4-11.9 [facility] Comment on above: Performed By: #### L CBC ####[facility] [id number] [place] [address] Platelets 277 10*3/uL Normal 140-440 [facility] Comment on above: Performed By: #### L CBC ####[facility] [id number] [place] [address] WBC (Leukocytes) 6.1 10*3/uL Normal 3.9-11.0 [facility] Comment on above: Performed By: #### L CBC ####[facility] Thpjngqccl26189 [place] [address] GLOMERULAR FILTRATION RATE E [facility] 05-04-2017 eGFR (non-black) mL/min/{1.73_m2} Normal > 60 [facility] Comment on above: Order Comment: Is pa tient fasting? YES Performed By: #### L BMP, LGFRP ####[facility] Oreiriadhu77169 [place] [address] IF AMER > 90 Normal > 60 [facility] Comment on above: Order Comment: Is pa tient fasting? YES Result Comment: Effe ctive 12/12/14:CKD-EPI equation / based on IDMS traceable creatinine.Continue to use the CREAT CLR-DOSE (Cockgroft-Gault)value for determining medication dose. Performed By: #### L BMP, LGFRP ####[facility] Vsnwhunhpb98760 [place] [address] Vital Signs Date Time Vital Sign Value Performing Clinician Yael murguia 04-04-2025 15:12-0400 Body mass index (BMI) [Ratio] 27.04 kg/m2 [employer] Work Phone: [facility] 04-04-2025 15:12-0400 Body weight 83.06 kg [employer] Work Phone: [facility] 04-04-2025 15:12-0400 Diastolic blood pressure 70 mm[Hg] Willis April DO Work Phone: [facility] 04-04-2025 15:12-0400 Systolic blood pressure 110 mm[Hg] Willis April DO Work Phone: [facility] 03-07-2025 15:39-0400 Body mass index (BMI) [Ratio] 26.26 kg/m2 Roula Mitchel PA Work Phone: [facility] 03-07-2025 15:39-0400 Body weight 80.65 kg Roula Mitchel PA Work Phone: [facility] 03-07-2025 15:39-0400 Diastolic blood pressure 70 mm[Hg] Roula Mitchel PA Work Phone: [facility] 03-07-2025 15:39-0400 Systolic blood pressure 110 mm[Hg] Roula Grullon PA Work Phone: [facility] 02-07-2025 15:09-0400 Body mass index (BMI) [Ratio] 26.11 kg/m2 Willis April DO Work Phone: [facility] 02-07-2025 15:09-0400 Body weight 80.2 kg Willis April DO Work Phone: [facility] 02-07-2025 15:09-0400 Diastolic blood pressure 74 mm[Hg] Willis April DO Work Phone: [facility] 02-07-2025 15:09-0400 Systolic blood pressure 114 mm[Hg] Willis April DO Work Phone: [facility] 02-01-2025 09:35-0400 Body mass index (BMI) [Ratio] 25.92 kg/m2 Roula Mitchel PA Work Phone: [facility] 02-01-2025 09:35-0400 Body weight 79.61 kg Roula Mitchel PA Work Phone: [facility] 02-01-2025 09:35-0400 Diastolic blood pressure 82 mm[Hg] Roula VILLEDA Work Phone: [facility] 02-01-2025 09:35-0400 Systolic blood pressure 118 mm[Hg] Roula VILLEDA Work Phone: [facility] 01-12-2025 11:56-0400 Body mass index (BMI) [Ratio] 26.55 kg/m2 [facility] 01-12-2025 11:56-0400 Body weight 81.56 kg [facility] 09-12-2024 12:28-0500 Body height 175.3 cm Koffi Uriarte MD Work Phone: [facility] 09-12-2024 12:28-0500 Body mass index (BMI) [Ratio] 27.06 kg/m2 Koffi Uriarte MD Work Phone: [facility] 09-12-2024 12:28-0500 Body temperature 97.3 [degF] Koffi Uriarte MD Work Phone: [facility] 09-12-2024 12:28-0500 Body weight 83.12 kg Koffi Uriarte MD Work Phone: [facility] 09-12-2024 12:28-0500 Diastolic blood pressure 96 mm[Hg] Koffi Uriarte MD Work Phone: [facility] 09-12-2024 12:28-0500 Heart rate 71 /min Koffi Uriarte MD Work Phone: [facility] 09-12-2024 12:28-0500 Systolic blood pressure 122 mm[Hg] Koffi Uriarte MD Work Phone: [facility] 05-03-2024 09:18-0400 Body height 175.3 cm Nedra Calderon MD Work Phone: [facility] 05-03-2024 09:18-0400 Body mass index (BMI) [Ratio] 28.15 kg/m2 Nedra Calderon MD Work Phone: [facility] 05-03-2024 09:18-0400 Body temperature 96.91 [degF] Nedra Calderon MD Work Phone: [facility] 05-03-2024 09:18-0400 Body weight 86.46 kg Nedra Calderon MD Work Phone: [facility] 05-03-2024 09:18-0400 Diastolic blood pressure 82 mm[Hg] Nedra Calderon MD Work Phone: [facility] 05-03-2024 09:18-0400 Heart rate 67 /min Nedra Calderon MD Work Phone: [facility] 05-03-2024 09:18-0400 Systolic blood pressure 136 mm[Hg] Nedra Calderon MD Work Phone: [facility] 11-09-2023 15:27-0400 Body height 175.[address] [facility] 11-09-2023 15:27-0400 Body mass index (BMI) [Ratio] 28.2 kg/m2 [facility] 11-09-2023 15:27-0400 Body temperature 98.1 [degF] [facility] 11-09-2023 15:27-0400 Body weight 86.[address] [facility] 11-09-2023 15:27-0400 Heart rate 63 /min [facility] 11-09-2023 15:27-0400 Respiratory rate 18 /min [facility] 11-09-2023 15:27-0400 SaO2% (BldA) [Mass fraction] 99 % [facility] 07-31-2022 10:54-0500 Body height 175.26 cm Koffi Uriarte Work Phone: [employer] Work Phone: 07-31-2022 10:54-0500 Body mass index (BMI) [Ratio] 31.01 kg/m2 Koffi Uriarte Work Phone: [employer] Work Phone: 07-31-2022 10:54-0500 Body surface area Derived from formula 2.11 m2 Koffi Uriarte Work Phone: GU-MQDM-Xczj [place] Work Phone: 07-31-2022 10:54-0500 Body temperature 97.6 [degF] Koffi Uriarte Work Phone: OY-CYBC-Wlhc [place] Work Phone: 07-31-2022 10:54-0500 Body weight 95.26 kg Koffi Uriarte Work Phone: KO-DPPS-Itpc [place] Work Phone: 07-31-2022 10:54-0500 Diastolic blood pressure 87 mm[Hg] Koffi Uriarte Work Phone: BZ-KKVA-Fzql [place] Work Phone: 07-31-2022 10:54-0500 Heart rate 76 /min Koffi Uriarte Work Phone: YZ-ADUY-Vqpm [place] Work Phone: 07-31-2022 10:54-0500 Respiratory rate 18 /min Koffi Uriarte Work Phone: SI-OVYP-Cdxg [place] Work Phone: 07-31-2022 10:54-0500 Systolic blood pressure 121 mm[Hg] Koffi Uriarte Work Phone: VR-JWDJ-Mwwn [place] Work Phone: 12-24-2021 11:32-0400 Body height 175.26 cm Koffi Uriarte Work Phone: [facility] SJW DO Work Phone: 12-24-2021 11:32-0400 Body mass index (BMI) [Ratio] 31.03 kg/m2 Koffi Uriarte Work Phone: BO-Ehqdijqmt-Qzwqoj ke SJW DO Work Phone: 12-24-2021 11:32-0400 Body surface area Derived from formula 2.11 m2 Koffi Uriarte Work Phone: XI-Ubbbjgbic-Tcniyw ke SJW DO Work Phone: 12-24-2021 11:32-0400 Body temperature 97.1 [degF] Koffi Uriarte Work Phone: ZA-Zcyiyynzn-Cgwert ke SJW DO Work Phone: 12-24-2021 11:32-0400 Body weight 95.3 kg Koffi Uriarte Work Phone: YE-Sbdkribbd-Kzvdxs ke SJW DO Work Phone: 12-24-2021 11:32-0400 Diastolic blood pressure 76 mm[Hg] Koffi Uriarte Work Phone: TI-Uzxfzhfdi-Bjomih ke SJW DO Work Phone: 12-24-2021 11:32-0400 Heart rate 54 /min Koffi Uriarte Work Phone: GK-Sblahrmiq-Ctmodw ke SJW DO Work Phone: 12-24-2021 11:32-0400 SaO2% (BldA) [Mass fraction] 100 % Koffi Uriarte Work Phone: TG-Yxztjbkdv-Pzbqrj ke SJW DO Work Phone: 12-24-2021 11:32-0400 Systolic blood pressure 114 mm[Hg] Koffi Uriarte Work Phone: MZ-Hohyfbexn-Vsgsjn ke SJW DO Work Phone: 11-17-2021 13:08-0400 Body height 172.72 cm Koffi Uriarte Work Phone: JC-VPZZ-Fgla [place] Work Phone: 11-17-2021 13:08-0400 Body mass index (BMI) [Ratio] 32.39 kg/m2 Koffi Uriarte Work Phone: IY-NGYY-Wbsx [place] Work Phone: 11-17-2021 13:08-0400 Body surface area Derived from formula 2.1 m2 Koffi Uriarte Work Phone: CI-XYMT-Wppe [place] Work Phone: 11-17-2021 13:08-0400 Body temperature 97 [degF] Koffi Uriarte Work Phone: HT-GGKF-Fjss [place] Work Phone: 11-17-2021 13:08-0400 Body weight 96.62 kg Koffi Uriarte Work Phone: ZG-MLLL-Iyls [place] Work Phone: 11-17-2021 13:08-0400 Diastolic blood pressure 84 mm[Hg] Koffi Uriarte Work Phone: QG-VYMD-Vdgq [place] Work Phone: 11-17-2021 13:08-0400 Heart rate 70 /min Koffi Uriarte Work Phone: AH-PQMI-Jrpg [place] Work Phone: 11-17-2021 13:08-0400 Respiratory rate 18 /min Koffi Uriarte Work Phone: RY-LDFK-Lqxw [place] Work Phone: 11-17-2021 13:08-0400 SaO2% (BldA) [Mass fraction] 96 % Koffi Uriarte Work Phone: JU-ILSR-Xvqa [place] Work Phone: 11-17-2021 13:08-0400 Systolic blood pressure 126 mm[Hg] Koffi Uriarte Work Phone: CQ-WEOJ-Spua [place] Work Phone: 06-25-2021 10:54-0500 Body height 172.72 cm Koffi Uriarte Work Phone: WO-Oabigubff-Kheuvj ke SJW DO Work Phone: 06-25-2021 10:54-0500 Body mass index (BMI) [Ratio] 32.08 kg/m2 Koffi Uriarte Work Phone: IU-Cqalsyqlw-Jipcif ke SJW DO Work Phone: 06-25-2021 10:54-0500 Body surface area Derived from formula 2.09 m2 Koffi Uriarte Work Phone: RO-Ybfxetxom-Gcdwag ke SJW DO Work Phone: 06-25-2021 10:54-0500 Body temperature 97.1 [degF] Koffi Uriarte Work Phone: WR-Neqthagvc-Ainrcf ke SJW DO Work Phone: 06-25-2021 10:54-0500 Body weight 95.71 kg Koffi Uriarte Work Phone: VN-Ltuofawei-Qllvop ke SJW DO Work Phone: 06-25-2021 10:54-0500 Diastolic blood pressure 62 mm[Hg] Koffi Uriarte Work Phone: KS-Jhaqhajxy-Jdvdqu ke SJW DO Work Phone: 06-25-2021 10:54-0500 Heart rate 67 /min Koffi Alison Uriarte Work Phone: WY-Yhfcjrejo-Wcfumq ke SJW DO Work Phone: 06-25-2021 10:54-0500 Respiratory rate 18 /min Koffi Alison Uriarte Work Phone: MC-Gcqsisiak-Mrxgxo ke SJW DO Work Phone: 06-25-2021 10:54-0500 SaO2% (BldA) [Mass fraction] 99 % Koffi Uriarte Work Phone: OG-Haibpfrxi-Cykklh ke SJW DO Work Phone: 06-25-2021 10:54-0500 Systolic blood pressure 131 mm[Hg] Koffi Uriarte Work Phone: TV-Oohteoiui-Ierzgy ke SJW DO Work Phone: 05-20-2021 15:59-0400 Body height 172.72 cm Koffi Uriarte Work Phone: NE-VZOW-Tdpj [place] Work Phone: 05-20-2021 15:59-0400 Body mass index (BMI) [Ratio] 31.93 kg/m2 Koffi Uriarte Work Phone: VM-NQXV-Mglv [place] Work Phone: 05-20-2021 15:59-0400 Body surface area Derived from formula 2.09 m2 Koffi Uriarte Work Phone: KI-HXXE-Kylx [place] Work Phone: 05-20-2021 15:59-0400 Body temperature 98.1 [degF] Koffi Uriarte Work Phone: LA-WLNA-Hhjs [place] Work Phone: 05-20-2021 15:59-0400 Body weight 95.26 kg Koffi Uriarte Work Phone: HT-JMWP-Pilh [place] Work Phone: 05-20-2021 15:59-0400 Diastolic blood pressure 82 mm[Hg] Koffi Uriarte Work Phone: LD-WGDW-Cpgu [place] Work Phone: 05-20-2021 15:59-0400 Heart rate 72 /min Koffi Uriarte Work Phone: AH-VSLN-Hact [place] Work Phone: 05-20-2021 15:59-0400 Respiratory rate 16 /min Koffi Uriarte Work Phone: RL-DPCS-Uixy [place] Work Phone: 05-20-2021 15:59-0400 Systolic blood pressure 122 mm[Hg] Koffi Uriarte Work Phone: AR-RRQT-Guva [place] Work Phone: 12-24-2020 14:45-0400 Body height 172.72 cm Koffi Uriarte Work Phone: RP-OHVB-Ompb [place] Work Phone: 12-24-2020 14:45-0400 Body mass index (BMI) [Ratio] 30.71 kg/m2 Koffi Uriarte Work Phone: IH-NTQB-Xewl [place] Work Phone: 12-24-2020 14:45-0400 Body surface area Derived from formula 2.05 m2 Koffi Uriarte Work Phone: QG-TSYH-Rgpx [place] Work Phone: 12-24-2020 14:45-0400 Body temperature 97.8 [degF] Koffi Uriarte Work Phone: JR-GBAY-Cgtn [place] Work Phone: 12-24-2020 14:45-0400 Body weight 91.63 kg Koffi Uriarte Work Phone: SN-GCYN-Eqrm [place] Work Phone: 12-24-2020 12:59-0400 Body height 172.72 cm Koffi Uriarte Work Phone: KE-YEFB-Tdpt [place] Work Phone: 12-24-2020 12:59-0400 Body mass index (BMI) [Ratio] 30.71 kg/m2 Koffi Uriarte Work Phone: SF-WRON-Jfpp [place] Work Phone: 12-24-2020 12:59-0400 Body surface area Derived from formula 2.05 m2 Koffi Uriarte Work Phone: BV-FKYA-Ipen [place] Work Phone: 12-24-2020 12:59-0400 Body temperature 98.2 [degF] Koffi Uriarte Work Phone: TC-JVOK-Oqxj [place] Work Phone: 12-24-2020 12:59-0400 Body weight 91.63 kg Koffi Uriarte Work Phone: LE-GFQD-Dsel [place] Work Phone: 12-24-2020 12:59-0400 Diastolic blood pressure 90 mm[Hg] Koffi Uriarte Work Phone: HH-YRHK-Sgwd [place] Work Phone: 12-24-2020 12:59-0400 Heart rate 75 /min Koffi Uriarte Work Phone: SY-XAWL-Jhhx [place] Work Phone: 12-24-2020 12:59-0400 Respiratory rate 16 /min Koffi Uriarte Work Phone: IQ-ISWT-Nadp [place] Work Phone: 12-24-2020 12:59-0400 Systolic blood pressure 147 mm[Hg] Koffi Uriarte Work Phone: BD-TRKW-Mirz [place] Work Phone: 08-14-2020 13:26-0500 BMI (Body Mass Index) 29.04 kg/m2 Koffi Uriarte VP-Hgpvetajz-Gyuisi ke SJW DO Work Phone: 08-14-2020 13:26-0500 Body Temperature 97.5 [degF] Koffi Uriarte MP-Neurology -[place] ke SJW DO Work Phone: 08-14-2020 13:26-0500 Body weight 86.64 kg Koffi Uriarte MP-Neurology- [place] ke SJW DO Work Phone: 08-14-2020 13:26-0500 BP Diastolic 100 mm[Hg] Koffi Uriarte MP-Neurology- [place] ke SJW DO Work Phone: 08-14-2020 13:26-0500 BP Systolic 150 mm[Hg] oKffi Uriarte MP-Neurology- [place] ke SJW DO Work Phone: 08-14-2020 13:26-0500 BSA (Body Surface Area) 2 m2 Koffi Uriarte OI-Cwwvcxqjq-Mjybws ke W DO Work Phone: 08-14-2020 13:26-0500 Height 172.72 cm Koffi Uriarte MP-Neurology- [place] ke W DO Work Phone: 05-28-2020 15:24-0500 BMI (Body Mass Index) 28.59 kg/m2 Koffi Uriarte TI-OEWJ-Rkhz [place] Work Phone: 05-28-2020 15:24-0500 Body Temperature 97.6 [degF] Koffi Uriarte YL-ORQS-Ztck [place] Work Phone: 05-28-2020 15:24-0500 Body weight 85.28 kg Koffi Uriarte YK-SFOE-Dked [place] Work Phone: 05-28-2020 15:24-0500 BP Diastolic 82 mm[Hg] Koffi Uriarte EP-RUMA-Cyud [place] Work Phone: 05-28-2020 15:24-0500 BP Systolic 122 mm[Hg] Koffi Uriarte DD-HZMZ-Cbxh [place] Work Phone: 05-28-2020 15:24-0500 BSA (Body Surface Area) 1.99 m2 Koffi Uriarte RK-UPVQ-Kywn [place] Work Phone: 05-28-2020 15:24-0500 Height 172.72 cm Koffi Uriarte MP-WSPC-Jennifer [place] Work Phone: 05-28-2020 15:24-0500 Pulse (Heart Rate) 70 /min Koffi Uriarte MP-WSPC-[place] Work Phone: 05-28-2020 15:24-0500 Respiratory Rate 18 /min Koffi Uriarte MP-WSPC-Jennifer [place] Work Phone: 04-25-2020 16:01-0400 BMI (Body Mass Index) 28.59 kg/m2 Koffi Uriarte MP-WSPC-Jennifer [facility] Work Phone: 04-25-2020 16:01-0400 Body Temperature 98.6 [degF] Koffi Uriarte MP-WSPC-Jennifer [facility] Work Phone: 04-25-2020 16:01-0400 Body weight 85.28 kg Koffi Uriarte MP-WSPC-Jennifer [facility] Work Phone: 04-25-2020 16:01-0400 BP Diastolic 101 mm[Hg] Koffi Uriarte MP-WSPC-Jennifer [facility] Work Phone: 04-25-2020 16:01-0400 BP Systolic 154 mm[Hg] Koffi Uriarte MP-WSPC-Jennifer [facility] Work Phone: 04-25-2020 16:01-0400 BSA (Body Surface Area) 1.99 m2 Koffi Uriaret MP-WSPC-Jennifer [facility] Work Phone: 04-25-2020 16:01-0400 Height 172.72 cm Koffi Uriarte MP-WSPC-Lucas Work Phone: 04-25-2020 16:01-0400 Pulse (Heart Rate) 76 /min Koffi Uriarte MP-WSPC-Av luis [place] Work Phone: 04-25-2020 16:01-0400 Respiratory Rate 16 /min Koffi Uriarte MP-WSPC-Lucas Work Phone: 04-19-2020 00:00-0400 BP Diastolic 83 mm[Hg] [facility], [place] 04-19-2020 00:00-0400 BP Systolic 144 mm[Hg] [facility] 04-18-2020 22:17-0400 BMI (Body Mass Index) 28.06 kg/m2 [facility] 04-18-2020 22:17-0400 Body Temperature 98.91 [degF] [facility], [place] 04-18-2020 22:17-0400 Body weight 86.[address] [facility], [place] 04-18-2020 22:17-[address] [facility] 04-18-2020 22:17-0400 Pulse (Heart Rate) 105 /min [facility], [place] 04-18-2020 22:17-0400 Pulse Oximetry 97 % [facility], [place] 04-18-2020 22:17-0400 Respiratory Rate 16 /min [facility] [place] Encounters Encounter Date Encounter Type Care Provider Facility Start: 04-04-2025 End: 04-04-2025 flow sheet Willis April DO Work Phone: [facility] Comment on above: 20 weeks gestation o f ([facility]); Second trimester ([facility]) Start: 04-04-2025 End: 04-04-2025 ambulatory WILLIS APRIL Not Available Start: 04-04-2025 End: 04-04-2025 Clinisync Result Encounter Willis April DO Work Phone: [facility] Unsolicited Start: 04-04-2025 End: 04-04-2025 Clinisync Result Encounter Willis April DO Work Phone: [facility] Unsolicited Start: 03-14-2025 End: 03-14-2025 ambulatory ROULA GRULLON Not Available Start: 03-07-2025 End: 03-07-2025 Patient encounter procedure Roula VILLEDA Work Phone: [facility] Work Phone: Start: 03-07-2025 End: 03-07-2025 flow sheet Roula VILLEDA Work Phone: [facility] Comment on above: Well woman exam with routine gynecological exam; Second trimester ([facility]); 16 weeks gestation of ([facility]); Vaginal discharge; STD exposure; Screening, , for anatomic survey ([facility]) Start: 03-07-2025 End: 03-07-2025 ambulatory ROULA GRULLON Not Available Start: 03-07-2025 End: 03-07-2025 Bamboo flowsheet Roula VILLEDA Work Phone: [facility] Start: 03-07-2025 End: 03-11-2025 Bamboo flowsheet Roula VILLEDA Work Phone: [facility] Start: 03-07-2025 End: 03-11-2025 Clinisync Result Encounter Roula VILLEDA Work Phone: [facility] External Department Unsolicited Start: 03-07-2025 End: 03-09-2025 External Result Encounter Roula VILLEDA Work Phone: [facility] Department Unsolicited Start: 02-21-2025 End: 02-21-2025 ambulatory WILLIS APRIL Not Available Start: 02-07-2025 End: 02-07-2025 flow sheet Willis April DO Work Phone: [facility] Comment on above: First trimester preg jyothi ([facility]); 12 weeks gestation of ([facility]); Missed menses; Subchorionic hematoma in second trimester, single or unspecified fetus ([facility]) Start: 02-07-2025 End: 02-07-2025 ambulatory WILLIS APRIL Not Available Start: 02-07-2025 End: 02-07-2025 Bamboo flowsheet Willis April DO Work Phone: [facility] Start: 02-07-2025 End: 02-07-2025 Bamboo flowsheet Willis April DO Work Phone: [facility] Start: 02-01-2025 End: 02-01-2025 Bamboo flowsheet Roula VILLEDA Work Phone: [facility] Start: 02-01-2025 End: 02-01-2025 Bamboo flowsheet Roula VILLEDA Work Phone: [facility] Start: 02-01-2025 End: 02-01-2025 Office outpatient visit 15 minutes Roula VILLEDA Work Phone: [facility] Comment on above: Nausea and vomiting, unspecified vomiting type (Primary Dx); First trimester ([facility]); 11 weeks gestation of ([facility]) Start: 02-01-2025 End: 02-01-2025 ambulatory ROULA GRULLON Not Available Start: 01-22-2025 End: 01-22-2025 Clinisync Result Encounter Willis Estevezo DO Work Phone: [facility] External Department Unsolicited Start: 01-22-2025 End: 01-22-2025 Clinisync Result Encounter Willis April DO Work Phone: [facility] External Department Unsolicited Start: 01-12-2025 End: 01-12-2025 Office outpatient visit 5 minutes April Nurse [facility] Comment on above: GA: 8w4d Start: 01-12-2025 End: 01-12-2025 ambulatory ROULA GRULLON Not Available Start: 09-12-2024 End: 09-12-2024 Office outpatient visit 25 minutes Koffi Uriarte MD Work Phone: [facility] Comment on above: Benign essential hyp ertension (Primary Dx); Seizure (Multi); Vitamin B12 deficiency; Fatigue, unspecified type; Well adult health check; Vitamin D deficiency Start: 09-12-2024 End: 09-12-2024 Patient encounter status Koffi Uriarte MD Work Phone: [facility] Work Phone: Start: 09-12-2024 End: 09-12-2024 ambulatory [facility] Ambulatory Start: 09-12-2024 End: 09-12-2024 Encounter for general adult medical examination without abnormal findings [facility] Ambulatory Start: 05-03-2024 End: 05-03-2024 Office outpatient visit 25 minutes Nedra Calderon MD Work Phone: [facility] Comment on above: Seizure (Multi) (Elenita vernon Dx) Start: 05-03-2024 End: 05-03-2024 ambulatory NEDRA Jha [facility] Ambulatory Start: 04-13-2024 End: 07-12-2024 ambulatory Spenser COLLINS Facility:[facility] Start: 03-30-2024 End: 03-30-2024 ambulatory Vernon Ochoa PABLO Facility:[facility] Start: 12-15-2023 End: 12-15-2023 ambulatory None Provider Facility:[facility] Start: 11-09-2023 End: 11-09-2023 ambulatory [facility] Work Phone: Start: 11-09-2023 End: 11-09-2023 Patient encounter procedure [facility] Work Phone: Start: 08-04-2023 End: 08-04-2023 ambulatory Willis Chen Facility:[facility] Start: 04-30-2023 End: 04-30-2023 Office outpatient visit 15 minutes Nedra Calderon MD Work Phone: [facility] Comment on above: Seizure (CMS/HCC) (P rimary Dx) Start: 11-25-2022 End: 11-26-[address] WILLIS CHEN . Facility: Start: 11-16-2022 End: 11-17-[address] WILLIS CHEN . Facility: Start: 07-31-2022 Current tobacco non- user cad cap copd pv dm [facility] Work Phone: PG-RVBT-[place]hmv [place] Work Phone: Start: 07-31-2022 Periodic preventive med est patient 18-39 yrs Koffi Uriarte Work Phone: HX-NSYJ-Doqm [place] Work Phone: Start: 07-31-[address] 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 Work Phone: CB/Gynecology Comment on above: Appointment Start: 03-18-2022 AUDIT Koffi hopkinson Work Phone: EU-Buexmhzrh-GdezghhfClassBug DO Work Phone: Start: 02-03-2022 ambulatory Brendan Blankenship PA-C Work Phone: OB/Gynecology Comment on above: Bacteria Vaginosis Start: 01-02-2022 AUDIT Koffi Carlson ardson Work Phone: NN-ILUM-Pyqp [place] Work Phone: Start: 12-24-2021 Office outpatient vi sit 15 minutes Koffi Alison ClementeUriarte Work Phone: BV-Tgwcpzban-Rufannqn SJW DO Work Phone: Start: 11-17-2021 Office outpatient vi sit 15 minutes Koffi A Uriarte Work Phone: ND-ENNS-Ghnc [place] Work Phone: Start: 09-29-2021 AUDIT Koffi A Rich ardson Work Phone: XJ-AEJI-Uzvl [place] Work Phone: Start: 09-09-2021 End: 09-09-2021 ambulatory BRENDAN BLANKENSHIP Facility:[facility] Start: 07-04-2021 End: 07-05-2021 ambulatory GEORGIA DWYER Facility:[facility] Start: 07-04-2021 Encounter for gynecological examination (general) (routine) without abnormal findings GEORGIA DWYER [facility] Start: 06-25-2021 Office outpatient vi sit 25 minutes Koffi Alison Uriarte Work Phone: IC-Izssdsslu-Kzzfkggc SJW DO Work Phone: Start: 05-22-2021 Chart Update Koffi Carlson ardson Work Phone: ZC-IZME-Fyjl [place] Work Phone: Start: 05-20-2021 Office outpatient vi sit 25 minutes Koffi Alison Uriarte Work Phone: LU-KMGE-[place]n [place] Work Phone: Start: 05-20-2021 Patient encounter procedure Koffi Clementeson Work Phone: LJ-NVIS-Mtmg [place] Work Phone: Start: 03-28-2021 AUDIT Koffi Alison Carlson ardson Work Phone: CU-DVDI-Cgmd [place] Work Phone: Start: 12-24-2020 Chart Update Koffi Alison Rich ardson Work Phone: II-TPYN-Qoew [place] Work Phone: Start: 12-24-2020 Office outpatient vi sit 25 minutes Koffi A Uriarte Work Phone: BM-ENDB-Soiz [place] Work Phone: Start: 08-14-2020 Patient encounter procedure Koffi Uriarte XP-Siabgcjsi-Eymkhsec SJW DO Work Phone: Start: 06-11-2020 Patient encounter procedure Koffi Uriarte TX-Oalukvydm-Iyuvimap SJW DO Work Phone: Start: 05-28-2020 Patient encounter procedure Koffi Uriarte IN-VUWM-Tlpq [place] Work Phone: Start: 05-09-2020 End: 05-12-2020 Patient encounter procedure SPIKE GARCIA [facility] Start: 05-09-2020 End: 05-11-2020 Subsequent hospital visit by physician Madeline Frey 1 EEG Comment on above: 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) Start: 04-25-2020 Patient encounter procedure Koffi Uriarte NB-NUDX-Vfup [place] Work Phone: Start: 04-19-2020 End: 04-19-2020 Emergency department patient visit [facility] Start: 04-18-2020 End: 04-19-2020 Emergency department patient visit Tu Henley Raad Work Phone: [facility] ED Comment on above: Seizure (HCC) (Prima ry Dx) Start: 03-02-2019 Patient encounter procedure Koffi Uriarte ZH-PZNV-Fvte [place] Work Phone: Start: 05-04-2017 Ambulatory Koffi Uriarte Fa cility:[facility] Patient encounter status Koffi Uriarte Work Phone: HH-XUMG-Yxho [place] Work Phone: Procedures Date Procedure Procedure Detail Performing Clinician Start: 04-04-2025 Urnls dip stick/tablet rgnt non-auto w/o micrscp Willis April DO Work Phone: Start: 04-04-2025 US OB ANATOMY Willis April DO Work Phone: Start: 04-04-2025 US OB CERVICAL LENGTH Willis April DO Work Phone: Start: 03-07-2025 RECURRENT VAGINITIS (HTRX) Roula VILLEDA Work Phone: Start: 03-07-2025 Urnls dip stick/tablet rgnt non-auto w/o micrscp Roula VILLEDA Work Phone: Start: 03-07-2025 IGP,APTIMA HPV,AGE GDLN Roula VILLEDA Work Phone: Start: 03-07-2025 Microscopic observation [Identifier] in Cervix by Cyto stain Willis Estevezo DO Work Phone: Start: 02-07-2025 Urnls dip stick/tablet rgnt non-auto w/o micrscp Willis April DO Work Phone: Start: 01-22-2025 BOX TEST Willis April DO Work Phone: Start: 01-12-2025 End: 01-12-2025 Urnls dip stick/tablet rgnt non-auto w/o micrscp [facility] Work Phone: Start: 09-12-2024 25-hydroxyvitamin D3 [...] observation [Identifier] in Cervix by Cyto stain Willischristina Chen Work Phone: Start: 12-24-2020 Thyrotropin [Units/volume] in Serum or Plasma Nedra Calderon MD Work Phone: Start: 08-14-2020 CBC W Auto Differential panel - Blood Koffi Uriarte Start: 08-14-2020 Comprehensive metabolic 2000 panel Koffi Clementeson Start: 08-14-2020 Quantitation drug not elsewhere specified Koffi Clementeson Start: 07-02-2020 Microscopic observation [Identifier] in Cervix [...] ANDERSON Start: 04-19-2020 SALINE LOCK IV ZAC MONICA Start: 04-18-2020 Assay of lactate Tu Henley Carmen knutson Work Phone: Start: 04-18-2020 Urinalysis microscopic only Tu Reece [facility] Work Phone: Start: 04-18-2020 Urnls dip stick/tablet rgnt auto w/o microscopy Tu Curran Work Phone: Start: 04-18-2020 Blood count complete auto&auto difrntl wbc Tu [place]field Work Phone: Start: 04-18-2020 Comprehensive metabolic panel Tu Curran Work Phone: Start: 04-18-2020 Gonadotropin chorionic qualitative Tu Curran Work Phone: History of No histor y of surgery Koffi Uriarte No history of surgery Moniqu e A Chapito Work Phone: Plan of Treatment Date Care Activity Detail Author Start: 10-02-2043 Zoster Vaccines (1 o f 2) Zoster Vaccines (1 of 2) [facility] Start: 06-08-2033 DTaP/Tdap/Td Vaccine s (9 - Td or Tdap) DTaP/Tdap/Td Vaccines (9 - Td or Tdap) [facility] Start: 09-12-2029 Lipid panel Lipid Panel [facility] Start: 03-07-2028 Screening for malign ant neoplasm of cervix [facility] Start: 02-17-2028 DTaP/Tdap/Td Vaccine s (8 - Td or Tdap) DTaP/Tdap/Td Vaccines (8 - Td or Tdap) [facility] Start: 03-10-2026 Screening for malign ant neoplasm of cervix [facility] Start: 03-09-2026 Screening for malign ant neoplasm of cervix [facility] Start: 05-07-2025 End: 05-07-2025 Patient encounter procedure 05/07/2025 2:00 PM EDT Office Visit [address] Chiu [address] [address] [place] [address] [facility] [address] Chiu [address], [facility] [place] [address] [facility] Start: 04-30-2025 End: 04-30-2025 Patient encounter procedure 04/30/2025 9:50 AM EDT Routine [facility] [address] [place] [address] Roula Grullon PA [address] [place], [id number] Start: 04-04-2025 End: 04-04-2025 Patient encounter procedure 04/04/2025 3:10 PM EDT Routine [facility] [address] [place] [address] Willis Chen DO [address] [place] [address] [facility] Start: 03-19-2025 Influenza vaccination Influenza Vacc ine (#1) [facility] Start: 03-14-2025 End: 03-14-2025 Professional / ancillary services management 03/14/2025 3:00 PM EDT Ancillary Procedure [facility] [address] [place] [address] [facility] Start: 03-07-2025 End: 03-07-2025 Patient encounter procedure [facility] Comment on above: Arrived Start: 03-07-2025 End: 09-07-2025 Alpha fetoprotein, maternal Alpha fetoprotein, maternal Lab Routine Second trimester ([facility]) 16 weeks gestation of ([facility]) Expected: 03/07/2025 (Approximate), Expires: 09/07/[address] [facility] Comment on above: Expected: 03/07/2025 (Approximate), Expires: 09/07/2025 Start: 03-07-2025 End: 06-07-2025 US for US OB 14+ weeks anatomy scan Imaging Routine Screening, , for anatomic survey ([facility]) Expected: 03/07/2025, Expires: 06/07/2025 [facility] Comment on above: Expected: 03/07/2025 , Expires: 06/07/2025 Start: 02-21-2025 End: 02-21-2025 Professional / ancillary services management 02/21/2025 3:00 PM EDT Ancillary Procedure [facility] [address] [place] [address] [facility] Start: 02-12-2025 End: 02-12-2025 Patient encounter procedure 02/12/2025 2:20 PM EDT Office Visit [facility] [address] [place] [phone] [place] [address] [place] [address] [facility] Start: 02-07-2025 End: 02-07-2025 Patient encounter procedure [facility] Comment on above: Arrived Start: 02-07-2025 End: 05-10-2025 US for US OB less than 14 weeks early Imaging Routine Missed menses Subchorionic hematoma in second trimester, single or unspecified fetus ([facility]) Expected: 02/07/2025, Expires: 05/10/2025 [facility] Work Phone: Comment on above: Expected: 02/07/2025 , Expires: 05/10/2025 Start: 02-01-2025 End: 02-01-2025 Patient encounter procedure 02/01/2025 9:20 AM EDT Office Visit [facility] [address] [place] [phone] Roula Grullon PA [address] [place] [address] Arrived [facility] Comment on above: Arrived Start: 01-12-2025 End: 01-12-2026 ABO/Rh ABO/Rh Lab Routine Missed menses , unspecified gestational age ([facility]) Expected: 01/12/2025 (Approximate), Expires: 01/12/2026 [facility] Healthcare Comment on above: Expected: 01/12/2025 (Approximate), Expires: 01/12/2026 Start: 01-12-2025 End: 01-12-2026 Blood type and Indirect antibody screen panel - Blood Type and screen Lab Routine Missed menses , unspecified gestational age ([facility]) Expected: 01/12/2025 (Approximate), Expires: 01/12/2026 [facility] Work Phone: Comment on above: Expected: 01/12/2025 (Approximate), Expires: 01/12/2026 Start: 01-12-2025 End: 01-12-2026 Drugs of abuse panel - Urine by Screen method Rapid drug screen, urine Lab Routine , unspecified gestational age ([facility]) Encounter for supervision of normal first in first trimester ([facility]) Expected: 01/12/2025 (Approximate), Expires: 01/12/2026 [facility] Healthcare Comment on above: Expected: 01/12/2025 (Approximate), Expires: 01/12/2026 Start: 05-03-2024 End: 05-03-2025 lamoTRIgine [Mass/volume] in Serum or Plasma Lamotrigine level Lab Routine Seizure (Multi) Expected: 05/03/2024 (Approximate), Expires: 05/03/2025 [facility] Service Area Work Phone: Comment on above: Expected: 05/03/2024 (Approximate), Expires: 05/03/2025 Start: 03-19-2024 COVID-19 Vaccine ( season) COVID-19 Vaccine ( season) [facility] Start: 03-19-2024 COVID-19 Vaccine () COVID-19 Vaccine () [facility] Start: 09-01-2024 Influenza vaccination Influenza Vacc ine (#1) [facility] Start: 10-02-2023 Screening for malign ant neoplasm of cervix HPV/Cotest [facility] Start: 08-02-2023 PHYSICAL, Provider: Koffi Uriarte, Status: Pen, Time: 9:00 AM PHYSICAL, Provider: Koffi Uriarte, Status: Pen, Time: 9:00 AM PV-WFWW-[place]lo [place] Work Phone: Start: 08-02-2023 End: 08-02-2023 Patient encounter procedure 08/02/2023 9:00 AM EST Office Visit [facility] [address] [place] [address] [place] [address] [place], [place] [id number] [facility] Start: 07-02-2023 PAP TESTING PAP TESTING [facility] Start: 07-02-2023 Screening for malign ant neoplasm of cervix [facility] Start: 12-24-2022 VIRFUVTORREY, Provider : Nedra Calderon, Status: Pen, Time: 10:00 AM VIRFUVTORREY, Provider: Nedra Calderon, Status: Pen, Time: 10:[address] [facility] Work Phone: Start: 05-22-2022 PHYSICAL, Provider: Koffi Uriarte, Status: Pen, Time: 9:50 AM PHYSICAL, Provider: Koffi Uriarte, Status: Pen, Time: 9:50 AM TD-NPVI-Kkjw [place] Work Phone: Start: 03-24-2022 End: 05-24-2022 Choriogonadotropin.beta subunit [Units/volume] in Serum or Plasma HCG QUANTITATIVE Lab Routine Bleeding in early Expected: 03/24/2022, Expires: 05/24/2022 [facility] Work Phone: Comment on above: Expected: 03/24/2022 , Expires: 05/24/2022 Start: 09-01-2022 Influenza vaccination INFLUENZA (#1) [facility] Start: 12-24-2021 Thyroid stimulating hormone measurement TSH Level [facility] Start: 12-24-2021 FUVGENERAL, Provider : Nedra Calderon, Status: Pen, Time: 11:30 AM FUVGENERAL, Provider: Nedra Calderon, Status: Pen, Time: 11:30 AM LD-Qkpcqcpht-Nbjbjc ke SJW DO Work Phone: Start: 11-17-2021 FUV, Provider: Koffi Uriarte, Status: Pen, Time: 1:00 PM FUV, Provider: Koffi Uriarte, Status: Pen, Time: 1:00 PM PN-IJAS-Faqh [place] Work Phone: Start: 07-01-2021 COVID-19 VACCINE (3 - Booster for Pfizer series) COVID-19 VACCINE (3 - Booster for Pfizer series) [facility] Start: 06-25-2021 FUVGENERAL, Provider : Nedra Calderon, Status: Pen, Time: 2:00 PM FUVGENERAL, Provider: Nedra Calderon, Status: Pen, Time: 2:00 PM ZV-MXCN-[place]tno [place] Work Phone: Start: 06-25-2021 FUVGENERAL, Provider : Nedra Calderon, Status: Pen, Time: 11:00 AM FUVGENERAL, Provider: Nedra Calderon, Status: Pen, Time: 11:00 AM ZK-RSPN-Txrf [place] Work Phone: Start: 05-20-2021 FUV, Provider: Koffi Uriarte, Status: Pen, Time: 3:40 PM FUV, Provider: Koffi Uriarte, Status: Pen, Time: 3:40 PM LM-CNXJ-[place]oo [place] Work Phone: Start: 03-31-2021 FUV, Provider: Koffi Uriarte, Status: Pen, Time: 2:00 PM FUV, Provider: Koffi Uriarte, Status: Pen, Time: 2:00 PM UQ-XUZH-Ahdm [place] Work Phone: Start: 03-26-2021 COVID-19 Vaccine (3 - Pfizer series) COVID-19 Vaccine (3 - Pfizer series) [facility] Start: 03-19-2020 Influenza vaccination Flu vaccine (# 1) [place], [place] Start: 03-02-2018 DTaP/Tdap/Td vaccine (7 - Td) DTaP/Tdap/Td vaccine (7 - Td) [place], [place] Start: 03-02-2018 Urine microalbumin profile DTAP,TDAP,TD (7 - Td or Tdap) [facility] Start: 2014 Screening for malign ant neoplasm of cervix [facility] Start: 10-02-2011 HEPATITIS C SCREENING HEPATITIS C [facility] Start: 10-02-2011 Hepatitis C screening Hepatitis C [facility] Start: 10-02-2011 HIV SCREENING HIV SCREENING [facility] Start: 2008 HIV screening HIV screen [place], [place] Start: 2006 Varicella vaccination Varicell a Vaccines (1 of 2 - 13+ 2-dose series) [facility] Start: 2005 Adult depression screening assessment DEPRESSION SCREENING [facility] Start: 2004 HPV vaccine (1 - 2-d ose series) HPV vaccine (1 - 2-dose series) [place], [place] Start: 04-09-1999 Varicella vaccination Varicell a Vaccines (1 of 2 - 2-dose childhood series) [facility] Start: 1994 Varicella vaccine (1 of 2 - 2-dose childhood series) Varicella vaccine (1 of 2 - 2-dose childhood series) [place], [place] Start: 1993 HIV screening HIV Screening [facility] Start: 1993 Lipid panel Lipid Panel [facility] Start: 1993 Yearly Adult Physical Yearly Adult P [facility] Bacteria identified in Urine by Culture Urine culture Microbiology Routine Missed menses Ordered: 01/12/[address] [facility] Comment on above: Ordered: 01/12/2025 CBC W Auto Different ial panel - Blood CBC and differential Lab Routine Missed menses , unspecified gestational age ([facility]) Ordered: 01/12/[address] [facility] Comment on above: Ordered: 01/12/2025 CHLAMYDIA TRACHOMATI S (GENITO/STI) CHLAMYDIA TRACHOMATIS (GENITO/STI) Lab Routine STD exposure Ordered: 03/07/[address] [facility] Comment on above: Ordered: 03/07/2025 End: 04-18-2020 CT Head WO Contrast CT Head WO Contrast Imaging STAT Once for 1 Occurrences starting 04/18/2020 until 04/18/2020 [place], [place] Comment on above: Once for 1 Occurrenc es starting 04/18/2020 until 04/18/2020 CT Head WO Contrast CT Head WO C ontrast Imaging STAT 04/18/2020 11:15 PM EDT [place], [place] Cytology Cervical or vaginal smear or scraping study Pap Smear Pathology and Cytology Routine Well woman exam with routine gynecological exam Ordered: 03/07/[address] [facility] Comment on above: Ordered: 03/07/2025 Hemoglobin A1c/Hemoglobin.total in Blood Hemoglobin A1c Lab Routine Missed menses , unspecified gestational age ([facility]) Ordered: 01/12/[address] [facility] Comment on above: Ordered: 01/12/2025 Hepatitis B virus surface Ag [Presence] in Serum or Plasma by Immunoassay Hepatitis B surface antigen Lab Routine Missed menses , unspecified gestational age ([facility]) Ordered: 01/12/[address] [facility] Comment on above: Ordered: 01/12/2025 Hepatitis C virus Ab [Presence] in Serum or Plasma by Immunoassay Hepatitis C antibody Lab Routine Missed menses , unspecified gestational age ([facility]) Ordered: 01/12/[address] [facility] Comment on above: Ordered: 01/12/2025 HIV-1/HIV-2 antigen/antibody combination immunoassay HIV-1 and HIV-2 antibodies Lab Routine Missed menses , unspecified gestational age ([facility]) Ordered: 01/12/[address] [facility] Comment on above: Ordered: 01/12/2025 Human papilloma viru s DNA [Presence] in Unspecified specimen by Probe with amplification HPV DNA probe, amplified Microbiology Routine Well woman exam with routine gynecological exam Ordered: 03/07/[address] [facility] Comment on above: Ordered: 03/07/2025 Neisseria gonorrhoea e DNA [Presence] in Unspecified specimen by HUMERA with probe detection Neisseria gonorrhea DNA probe, direct Lab Routine STD exposure Ordered: 03/07/[address] [facility] Comment on above: Ordered: 03/07/2025 End: 04-18-2020 Prolactin Prolactin Lab STAT One Time for 1 Occurrences starting 04/18/2020 until 04/18/[facility] Comment on above: One Time for 1 Occur rences starting 04/18/2020 until 04/18/[address] AT 04/18/2020 11:17 PM EDT [facility] Re[facility] Ab [Presence] in Serum by RPR RPR Lab Routine Missed menses , unspecified gestational age ([facility]) Ordered: 01/12/[address] [facility] Comment on above: Ordered: 01/12/2025 Rubella antibody, IgG Rubella an tibody, IgG Lab Routine Missed menses , unspecified gestational age ([facility]) Ordered: 01/12/[address] [facility] Comment on above: Ordered: 01/12/2025 SURESWAB(R) ADVANCED VAGINITIS PLUS, TMA SURESWAB(R) ADVANCED VAGINITIS PLUS, TMA Pathology and Cytology Routine Vaginal discharge Ordered: 03/07/[address] [facility] Work Phone: Comment on above: Ordered: 03/07/2025 XV-BDWL-Gkrs La ke Work Phone: [facility] NEGATED: Highlighted row has been ruled out! Planned Goals not documented BS-SLHH-Uzfv [place] Work Phone: Immunizations Immunization Date Immunization Notes Care Provider Radha laura 11-01-2023 hepatitis B vaccine, adult dosage Koffi Uriarte MD Work Phone: [facility] Work Phone: 06-08-2023 tetanus toxoid, redu diego diphtheria toxoid, and acellular pertussis vaccine, adsorbed Koffi Uriarte MD Work Phone: [facility] Work Phone: 04-22-2023 influenza, injectabl e, quadrivalent, preservative free Koffi Uriarte MD Work Phone: [facility] 04-22-2023 influenza virus vaccine, unspecified formulation Nedra Calderon MD Work Phone: [facility] Work Phone: 04-21-2022 influenza, injectabl e, quadrivalent, preservative free Koffi A Chapito Work Phone: [employer] Work Phone: 04-18-2021 influenza, injectabl e, quadrivalent, preservative free Koffi A Chapito Work Phone: [employer] Work Phone: 01-29-2021 Pfizer-BioNTech COVID-19 Vacc 30 MCG/0.3ML Intramuscular Suspension Koffi A Chapito Work Phone: [employer] Work Phone: 01-08-2021 Pfizer-BioNTech COVID-19 Vacc 30 MCG/0.3ML Intramuscular Suspension Koffi A Uriarte Work Phone: [employer] Work Phone: 05-09-2019 Influenza, injectabl e, Madin Brewer Canine Kidney, preservative free, quadrivalent Koffi A Chapito Work Phone: [employer] Work Phone: 04-28-2018 influenza, injectabl e, quadrivalent, contains preservative Koffi A Uriarte Work Phone: [employer] Work Phone: 02-16-2018 tetanus toxoid, redu diego diphtheria toxoid, and acellular pertussis vaccine, adsorbed Koffi A Uriarte Work Phone: [employer] Work Phone: 05-06-2017 influenza, injectabl e, quadrivalent, preservative free Koffi A Uriarte Work Phone: [employer] Work Phone: 01-14-2016 pneumococcal polysaccharide vaccine, 23 valent Koffiminesh Clementeson Work Phone: [id number] Work Phone: 11-30-2014 tuberculin skin test ; purified protein derivative solution, intradermal [facility] 12-15-2013 tuberculin skin test ; purified protein derivative solution, intradermal [facility] 03-02-2008 tetanus toxoid, redu diego diphtheria toxoid, and acellular pertussis vaccine, adsorbed [facility] 02-25-2007 meningococcal polysaccharide (groups A, C, Y and W-135) diphtheria toxoid conjugate vaccine (MCV4P) [place], [place] 02-25-2007 Meningococcal, MCV4, unspecified conjugate formulation(groups A, C, Y and W-135) [facility] 03-12-1999 diphtheria, tetanus toxoids and acellular pertussis vaccine [facility] 03-12-1999 diphtheria, tetanus toxoids and acellular pertussis vaccine, unspecified formulation Koffi Clementeson Work Phone: [employer] Work Phone: 03-12-1999 haemophilus influenz ae type b vaccine, HbOC conjugate [facility] 03-12-1999 measles, mumps and rubella virus vaccine [facility] 03-12-1999 poliovirus vaccine, inactivated [facility] 03-12-1999 trivalent poliovirus vaccine, live, oral [facility] 01-07-1995 diphtheria, tetanus toxoids and acellular pertussis vaccine [facility] 01-07-1995 diphtheria, tetanus toxoids and acellular pertussis vaccine, unspecified formulation Koffi Alison Uriarte Work Phone: [employer] Work Phone: 10-22-1994 haemophilus influenz ae type b vaccine, conjugate unspecified formulation [facility] 10-22-1994 haemophilus influenz ae type b vaccine, PRP-OMP conjugate Koffi Uriarte Work Phone: [employer] Work Phone: 10-22-1994 Hib, unspecified [facility] 10-22-1994 measles, mumps and rubella virus vaccine [facility] 10-22-1994 poliovirus vaccine, inactivated [facility] 06-18-1994 hepatitis B vaccine, pediatric or pediatric/adolescent dosage Koffi Uriarte Work Phone: [facility] 06-18-1994 hepatitis B vaccine, unspecified formulation [place] 04-16-1994 diphtheria, tetanus toxoids and acellular pertussis vaccine [facility] 04-16-1994 diphtheria, tetanus toxoids and pertussis vaccine [facility] 04-16-1994 haemophilus influenz ae type b vaccine, conjugate unspecified formulation [place] 04-16-1994 haemophilus influenz ae type b vaccine, HbOC conjugate Brendan Glasenapp PA-C Work Phone: [facility] 04-16-1994 haemophilus influenz ae type b vaccine, PRP-OMP conjugate Koffi Uriarte Work Phone: [employer] Work Phone: 04-16-1994 Hib, unspecified [facility] 04-16-1994 poliovirus vaccine, inactivated [facility] 04-16-1994 trivalent poliovirus vaccine, live, oral [facility] 02-12-1994 diphtheria, tetanus toxoids and acellular pertussis vaccine [place] 02-12-1994 diphtheria, tetanus toxoids and pertussis vaccine [facility] 02-12-1994 haemophilus influenz ae type b vaccine, conjugate unspecified formulation [facility] 02-12-1994 haemophilus influenz ae type b vaccine, HbOC conjugate Brendan Glasenapp PA-C Work Phone: [facility] 02-12-1994 haemophilus influenz ae type b vaccine, PRP-OMP conjugate Koffi Uriarte Work Phone: [employer] Work Phone: 02-12-1994 Hib, unspecified [facility] 02-12-1994 poliovirus vaccine, inactivated [facility] 02-12-1994 trivalent poliovirus vaccine, live, oral [facility] 01-08-1994 hepatitis B vaccine, pediatric or pediatric/adolescent dosage Koffi Uriarte Work Phone: [facility] 01-08-1994 hepatitis B vaccine, unspecified formulation [place], [place] 1993 diphtheria, tetanus toxoids and acellular pertussis vaccine [place], [place] 1993 diphtheria, tetanus toxoids and pertussis vaccine [facility] 1993 haemophilus influenz ae type b vaccine, conjugate unspecified formulation [place], [place] 1993 haemophilus influenz ae type b vaccine, HbOC conjugate Brendan Blankenship PA-C Work Phone: [facility] 1993 haemophilus influenz ae type b vaccine, PRP-OMP conjugate Koffi Uriarte Work Phone: [employer] Work Phone: 1993 hepatitis B vaccine, pediatric or pediatric/adolescent dosage Koffi Uriarte Work Phone: [facility] 1993 hepatitis B vaccine, unspecified formulation [facility] , [place] 1993 Hib, unspecified [place], [place] 1993 poliovirus vaccine, inactivated [facility] 1993 trivalent poliovirus vaccine, live, oral [place] Payers Date Payer Category Payer [facility] [id number] 2025 Unknown [id number] 2024 Private Health Insurance [employer] [id number] 2023 Self-pay 2023 Managed Care (Private) [id number] [id number] 2023 Private Health Insurance [id number] 2020 Unknown 2020 Unknown MMO MMO [employer] [id number] 2020-Present [phone] [address] [place] [address] PPO [id number] 2019 Unknown [id number] 1993 Unknown [id number] 2.16.840.1.982791.3.579.2. 185 1993 Unknown [id number] 09.03.840.1.563576.3.579.2. 182 1993 Unknown [id number] 2.16.840.1.408444.3.579.2. 182 1993 Unknown [id number] 2.16.840.1.109979.3.579.2. 593 1993 Unknown [id number] 2.16.840.1.222176.3.579.2. 593 1993 Unknown [id number] 2.16.840.1.225614.3.579.2. 356 1993 Unknown [id number] 2.16.840.1.613775.3.579.2. 727 1993 Unknown [id number] 2.16.840.1.141641.3.579.2. 727 1993 Unknown [id number] 2.840.1.771348.3.579.2. 1244 1993 Unknown [id number] 2.16.840.1.623957.3.579.2. 1244 1993 Unknown [id number] 2.840.1.077339.3.579.2. 1259 1993 Unknown [id number] 2.840.1.214903.3.579.2. 1259 1993 Unknown [id number] 2840.1.127545.3.579.2. 1259 1993 Unknown [id number] 2.16840.1.597114.3.579.2. 1259 1993 Unknown [id number] 2.16.840.1.564666.3.579.2. 1259 1993 Unknown [id number] 2.16.840.1.153485.3.579.2. 1259 1993 Unknown [id number] 2.16.840.1.543566.3.579.2. 1259 1993 Unknown [id number] 2.16840.1.048141.3.579.2. 1259 1959 Unknown [id number] 1.2.840.249733.1.13.239.2. [id number] Unknown [id number] Unknown [id number] 2.16.840.1.904877.3.579.2. 531 Unknown [id number] Social History Date Type Detail Facility Start: 04-18-2020 End: 04-30-2023 Tobacco smoking status NEIS Never smoker [facility] Start: 04-18-2020 End: 04-30-2023 Tobacco use and exposure Never used [place] Start: 04-18-2020 End: 09-12-2024 Alcohol intake Current drinker of alcohol (finding) [place] Start: 09-19-2019 History SDOH Financial 5 [place] Start: 09-19-2019 History SDOH Food Worry 1 [place] Start: 09-19-2019 History SDOH Transport Med 2 [place] Start: 04-18-2020 Alcohol Comment occasionally [facility] [place], [place] Start: 1995 Sex Assigned At Not on file [place] Start: 04-20-2023 End: 09-12-2024 Exposure to SARS-CoV-2 (event) Not sure [place] Start: 05-03-2024 End: 09-12-2024 Never smoker Never smoker [facility] [facility] Work Phone: Tobacco smoking status Never [facility] Start: 05-03-2024 End: 09-12-2024 Sex Assigned At Female [facility] Start: 1995 Sex Assigned At Female [facility] Start: 05-03-2024 Alcoholic beverage intake Ex-drinker (finding) [facility] Work Phone: How often to you hav e a drink containing alcohol? Never [facility] Work Phone: Start: 04-23-2024 End: 05-03-2024 Exposure to SARS-CoV-2 (event) Yes [facility] Start: 09-12-2024 Alcohol Comment Socially [facility] Work Phone: Tobacco smoking status NHIS Tobacco smoking consumption unknown [facility] Start: 11-27-2024 [facility] Start: 12-21-2022 Gender identity Identifies as female gender (finding) [facility] Start: 12-21-2022 Sexual orientation Heterosexual (fin ding) [facility] NEGATED: Highlighted row - - [employer] Work Phone: NEGATED: Highlighted rowStart: NINF History of tobacco use Passive smoker [facility] Work Phone: Goals Date Patient Goal Desired Activity /State Personal health goal Functional Status Date Assessment Result Facility NEGATED: Highlighted row Functional performance Functional status health issues are not documented Disease [employer] Work Phone: Mental Status Date Assessment Result Facility NEGATED: Highlighted row Cognitive function [Interpretation] Cognitive status health issues are not documented Disease [employer] Work Phone: Clinical Notes 08-09-2017 to 04-04-2025 Willis Chen DO - 04/04/2025 3:10 PM CHRISTIANA Sahu - 03/07/2025 3:20 PM Tess Andrade LPN - 02/07/2025 3:10 PM CHRISTIANA Sahu - 02/01/2025 9:20 AM EDTPatient Instructions Note Date & Type Note Facility 04-04-2025 History of Presen t illness Narrative Reason for Appointment: Patient ID: Princess Guerrero is a 29 y.o. female who presents for Routine Visit Patient presents today for Return OB appointment. Current Medications: has a current medication list which includes the following prescription(s): docusate sodium, labetalol, lamotrigine, mv-min-fe fum-fa-dha, and promethazine. Medical History: Active Ambulatory Problems Diagnosis Date Noted Hypertension 01/14/2023 Seizure ([facility]) 07/09/2021 Breech presentation, no version ([facility]) 07/29/2023 Resolved Ambulatory Problems Diagnosis Date Noted [...] nursing note reviewed. Exam conducted with a media theorist and author of present. Vitals: Estimated body mass index is 27.04 kg/m as calculated from the following: Height as of 11/16/22: 5' 9 . Weight as of this encounter: 183 lb 1.9 oz. BP: 110/70 Patient's last menstrual period was 11/13/2024. Assessment/Plan Encounter Diagnosis: ICD-10-CM 1. 20 weeks gestation of ([facility]) Z3A.20 POCT urinalysis dipstick manually resulted 2. Second trimester ([facility]) Z34.92 POCT urinalysis dipstick manually resulted Return [...] Willis Chen DO documented in this encounter [facility] 03-07-2025 History of Presen t illness Narrative [...] Problems Diagnosis Date Noted Hypertension 01/14/2023 Seizure ([facility]) 07/09/2021 Breech presentation, no version ([facility]) 07/29/2023 Resolved Ambulatory Problems Diagnosis Date Noted [...] HPV DNA probe, amplified 2. Second trimester ([facility]) Z34.92 POCT urinalysis dipstick manually resulted Alpha fetoprotein, maternal Alpha fetoprotein, maternal 3. 16 weeks gestation of ([facility]) Z3A.16 POCT urinalysis dipstick manually resulted Alpha fetoprotein, maternal Alpha fetoprotein, maternal 4. Vaginal discharge N89.8 SURESWAB(R) ADVANCED VAGINITIS PLUS, TMA 5. STD exposure Z20.2 CHLAMYDIA TRACHOMATIS (GENITO/STI) Neisseria gonorrhea DNA probe, direct 6. Screening, , for anatomic survey ([facility]) Z36.89 US OB 14+ weeks anatomy scan Return OB/Annual Exam: Patient presents today for an annual exam/routine obstetrics appointment. Patient is currently 16w2d . Patient is doing well and states she has no complaints. Pap/cultures was obtained without difficulty and patient was given [facility] order to have obtained. Orders Placed This [...] of: CHRISTIANA Mills documented in this encounter [facility] 02-07-2025 History of Presen t illness Narrative [...] Problems Diagnosis Date Noted Hypertension 01/14/2023 Seizure ([facility]) 07/09/2021 Breech presentation, no version ([facility]) 07/29/2023 Resolved Ambulatory Problems Diagnosis Date Noted [...] nursing note reviewed. Exam conducted with a media theorist and author of present. Vitals: Estimated body mass index is 26.11 kg/m as calculated from the following: Height as of 11/16/22: 5' 9 . Weight as of this encounter: 176 lb 12.8 oz. BP: 114/74 Patient's last menstrual period was 11/13/2024. ASSESSMENT & PLAN ICD-10-CM 1. First trimester ([facility]) Z34.91 POCT urinalysis dipstick manually resulted 2. 12 weeks gestation of ([facility]) Z3A.12 POCT urinalysis dipstick manually resulted New [...] or undercooked meat, and stay away from [facility]. Patient has been consulted regarding any further do's and don'ts of . Patient voiced understanding and all questions and concerns were answered. Orders Placed This Encounter Procedures POCT urinalysis dipstick manually resulted Follow Up: Patient is to return in 4 weeks for routine OB appointment. Documented by Cyndi Andrade LPN on behalf of: Willis Chen DO documented in this encounter [facility] 02-01-2025 History of Presen t illness Narrative [...] Problems Diagnosis Date Noted Hypertension 01/14/2023 Seizure ([facility]) 07/09/2021 Breech presentation, no version ([facility]) 07/29/2023 Resolved Ambulatory Problems Diagnosis Date Noted [...] ASSESSMENT & PLAN ICD-10-CM 1. First trimester ([facility]) Z34.91 2. 11 weeks gestation of ([facility]) Z3A.11 Patient is presents for er follow [...] of: CHRISTIANA Mills documented in this encounter [facility] 01-12-2025 History of Presen t illness Narrative [...] oz F CS-LTranv JACKSON Complications: Breech presentation ([facility]) 1 AB Obstetric Comments Last pap smear date 2 years ago Current Medications: has a current medication list which includes the following prescription(s): labetalol, lamotrigine, and mv-min-fe fum-fa-dha. Medical History: Active Ambulatory Problems Diagnosis Date Noted Hypertension 01/14/2023 Seizure ([facility]) 07/09/2021 Breech presentation, no version ([facility]) 07/29/2023 Resolved Ambulatory Problems Diagnosis Date Noted [...] dipstick manually resulted , unspecified gestational age ([facility]) - Type and screen; Future - ABO/Rh; Future - CBC and differential - Hemoglobin A1c - RPR - Rubella antibody, IgG - Hepatitis B surface antigen - Hepatitis C antibody - HIV-1 and HIV-2 antibodies - Rapid drug screen, urine; Future Encounter for supervision of normal first in first trimester ([facility]) - Rapid drug screen, urine; Future OB [...] or undercooked meat, and stay away from [facility]. Patient has also been advised to [...] Damaris Agosto MA documented in this encounter [facility] 09-12-2024 Evaluation + Plan note Associated Problem(s): [...] Primary Care - PCP - Established; Future [facility] Work Phone: 09-12-2024 Evaluation + Plan note Associated Problem(s): Seizure (Multi) Good control. Follow up with neuro. Continue meds [facility] Work Phone: 09-12-2024 Evaluation + Plan note Associated Problem(s): Vitamin B12 deficiency [facility] Work Phone: 09-12-2024 Evaluation + Plan note Associated Problem(s): Fatigue We talked about healthy habits and sleep hygiene Orders: CBC; Future TSH with reflex to Free T4 if abnormal; Future Vitamin B12; Future [facility] Work Phone: 09-12-2024 History of Presen t illness Narrative Subjective Princess Guerrero is a 28 y.o. female who presents for Follow-up (Follow from obgyn hospitalist physician appt for elevated BP). Here for a [...] daily or vitamins. documented in this encounter [facility] Work Phone: 09-12-2024 Instructions Koffi Uriarte MD - 09/12/2024 12:40 PM EST Please start back on folic acid 1 mg daily or vitamins. documented in this encounter [facility] Work Phone: 09-12-2024 Miscellaneous Notes Associated Problem(s): [...] Vitamin B12; Future documented in this encounter [facility] Work Phone: 05-03-2024 History of Presen t illness Narrative Images from the original note were not included. Neurological [facility] Referring: No ref. provider found PCP: [...] further seizures. She is now working for [employer] as the health department wanted to transition her to the alf system. Patient Active Problem List Diagnosis Anxiety [...] in upper and lower extremities. Coordination Right: Zspysw-dx-tykc normal.Left: Khlask-cr-amnh normal. Physical Exam Eyes: Extraocular Movements: Extraocular [...] for this visit. documented in this encounter [facility] Work Phone: 12-16-2023 Note [phone] [id number] Patient Education Ma terials Follows: [...] wine (148 mL (more content not included)... 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 Patient Active Problem List Diagnosis Abnormal weight [...] 5/5 throughout all four extremities. Coordination Right: Mrkanq-sq-ftvq normal.Left: Zacmpu-kj-qdcf normal. Physical Exam Eyes: Extraocular Movements: Extraocular [...] this encounter [facility] Work Phone: 11-25-2022 Note EXAMINATION: US PELV [...] authenticated by: HAYLIE HOUSER Date: 2022-11-25 17:20 [facility] 04-16-2022 Note HNO ID: [id number] Author: Brendan Blankenship PA-C Service: ? 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 I, Brendan Blankenship, have reviewed this information as documented for accuracy and performed all elements of history taking, and edited the record as necessary. ROS: SEE HPI PE: GENERAL: well-appearing, in no acute distress LUNGS: Normal inspiratory effort GENERAL SUPERINTENDENT: Normal external genitalia, no vaginal bleeding, small [...] Medical Decision Making Level: 3 - Low [facility] 03-24-2022 Miscellaneous Notes VM left w [...] taking this medication MICHELLE: No Brendan Souza APRN.LOAD TEST MECHANIC Pt reporting vag discharge/odor- same symptoms as past +BV dx. Last annual 06/2021. Req for BV medications Pending Prescriptions Disp Refills METRONIDAZOLE 500 MG TABLET 14 tablet 0 Sig: Take 1 tablet by mouth twice daily. for vaginosis. Do not drink alcohol while taking this medication MICHELLE: No documented in this encounter [facility] 09-09-2021 Note HNO ID: [id number] Author: Brendan Blankenship PA-C Service: ? 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 Portions of this record were documented by the Gate Supervisor. I, Brendan Blankenship, have reviewed this information as documented for accuracy and performed all elements of history taking, and edited the record as necessary. ROS: SEE HPI PE: GENERAL: well-appearing, in no acute distress LUNGS: Normal inspiratory effort GENERAL SUPERINTENDENT: Small amount yellow mucus discharge, cervix NL. [...] Medical Decision Making Level: 3 - Low [facility] 07-04-2021 Note HNO ID: [id number] Author: 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 APRN.LOAD TEST MECHANIC Service: ? Author Type: Nurse Practitioner Type: [...] Ectopic0 Multiple0 Live Births0 Comment: Menarche 10 Chief Wellness Officer History LMP: 06/07/2021 (Exact Date), Having periods Age at Menarche: Age at First : Age at Menopause: Chief Wellness Officer History Comments: Sexual Activity: Yes; Male; same [...] external genitalia normal, normal Bartholin's glands, urethra, Little Browning's glands, no vulvar lesions, no cervical lesions, [...] type of detergents for washing undergarments, wiping uijoy-zo-ouip, sleep in loose shorts without underwear, shower immediately after intercourse/exercise, make sure perineum is gently blotted dry before dressing. Avoid scratching, scented pads/tampons/toilet papers, cranberry juice, bubble baths, and intercourse until symptoms are relieved. NO douching. If you shave, use a new razor at least twice monthly. 5) Follow up one year or sooner as needed 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 APRN.JUSTINE [facility] 08-09-2017 History of Past i llness [...] note No [facility] available for this section [facility] Acute [facility]- Primary Vaginitis and vulvovaginitis, unspecified documented in this encounter [facility] note* Diagnosis Bleeding in early - Primary Unspecified hemorrhage in early , unspecified as to episode of care [facility] Diagnosis Seizure (CMS/HCC)- Primary Other convulsions documented in this encounter [facility] Work Phone: Evaluation noteNo assessment information available [facility] Work Phone: Evaluation note* Diagnosis Seizure (Multi)- Primary Other convulsions documented in this encounter [facility] Work Phone: Evaluation note* Diagnosis Benign essential hypertension- Primary Essential hypertension, benign Seizure (Multi) Other convulsions Vitamin B12 deficiency Other B-complex deficiencies Fatigue, unspecified type Well adult health check Unspecified general medical examination Vitamin D deficiency documented in this encounter [facility] Work Phone: Evaluation note* Diagnosis Missed menses Missed menses , unspecified gestational age ([facility]) Encounter for supervision of normal first in first trimester ([facility]) Nausea and vomiting in ([facility]) Unspecified vomiting of , unspecified as to episode of care Seizure (HCC) Other convulsions Chronic hypertension documented in this encounter [facility]* Diagnosis Nausea and vomiting, unspecified vomiting type- Primary First trimester ([facility]) state, incidental 11 weeks gestation of ([facility]) [facility] Diagnosis First trimester ([facility]) state, incidental 12 weeks gestation of ([facility]) Missed menses Subchorionic hematoma in second trimester, single or unspecified fetus ([facility]) documented in this encounter [facility]* Diagnosis Well woman exam with routine gynecological exam Routine gynecological examination Second trimester ([facility]) state, incidental 16 weeks gestation of ([facility]) Vaginal discharge Leukorrhea, not specified as infective STD exposure Screening, , for anatomic survey ([facility]) Encounter for anatomic survey [facility] Diagnosis 20 weeks gestation of ([facility]) Second trimester ([facility]) state, incidental [facility] Narrative* The patient states she has been doing well with her blood pressure control since the last visit. She has no comorbid illnesses. She has no significant interval events. * Symptoms: The patient is currently asymptomatic. * Less anxiety lately. Broke up with her boyfriend. 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 * BP is much improved on lisinopril. * Saw gyne for discharge. * was told she had BV and chlamydia. * took antibiotics, got better for a few weeks and now she is having discharge again and odor. no pelvic pain. [employer] Work Phone: History of Present illness Narrative* The patient states she has been doing well with her blood pressure control since the last visit. She has no comorbid illnesses. She has no significant interval events. * Symptoms: The patient is currently asymptomatic. * Less anxiety lately. Broke up with her boyfriend. 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 * BP is much improved on lisinopril. * Saw gyne for discharge. * was told she had BV and chlamydia. * took antibiotics, got better for a few weeks and now she is having discharge again and odor. no pelvic pain. [employer] Work Phone: Hospital Discharge instructions No data available for this section [facility] data available for this section [facility] Purpose Family History No Family [...] FoundDocuments on File Type Date Recorded Patient Stage Producer Expl anation ACP-Advance Directive ACP-Power of Finance Mgr Documents on File Type Date Recorded Patient Stage Producer Expl anation ACP-Advance Directive ACP-Power of Finance Mgr Documents on File Type Date Recorded Patient Stage Producer Expl anation Advance Directive(s) 11/30/2015 2:19 PM Advance Directive Response Recorded Date/ Time Advance Directives No November 08, 2 024 3:18pm Reason for Referral Status Reason Specialty Diagnoses / Procedures Referre d By Contact Referred To Contact Open Radiology Diagnoses Nonintractable generalized idiopathic epilepsy without status epilepticus (HCC) Procedures MRI BRAIN W WO CONTRAST Spike Garcia MD [address] [place] [address] Assessments Diagnosis Nonintractable generalized idiopathic epilepsy without status epilepticus (HCC) Diagnosis Seizure (HCC) Other convulsions Discharge Instructions * Attachments The following attachments cannot be sent through Care Everywhere. * Seizure (Hebrew) documented in this encounter Chief Complaint and Reason for Visit Chief Complaint Nausea, diarrhea Additional Source Comments INFORMATION SOURCE (unrecogn ized section and content) DATE CREATED AUTHOR 01/11/2018 [facility] DATE CREATED AUTHOR AUTHOR'S ORGANIZ ATION 04/19/2020 [facility] DATE CREATED AUTHOR AUTHOR'S ORGANIZ ATION 05/11/2020 [facility] DATE CREATED AUTHOR AUTHOR'S ORGANIZ ATION 12/29/2020 [facility] DATE CREATED AUTHOR AUTHOR'S ORGANIZ ATION 04/20/2022 [facility] DATE CREATED AUTHOR AUTHOR'S ORGANIZ ATION 08/11/2022 [facility] DATE CREATED AUTHOR AUTHOR'S ORGANIZ ATION 11/29/2022 [facility] DATE CREATED AUTHOR AUTHOR'S ORGANIZ ATION 12/27/2022 [facility] Center DATE CREATED AUTHOR AUTHOR'S ORGANIZ ATION 09/07/2023 [facility] DATE CREATED AUTHOR AUTHOR'S ORGANIZ ATION 12/16/2023 [facility] DATE CREATED AUTHOR AUTHOR'S ORGANIZ ATION 04/01/2024 [facility] DATE CREATED AUTHOR AUTHOR'S ORGANIZ ATION 04/02/2024 [facility] DATE CREATED AUTHOR AUTHOR'S ORGANIZ ATION 07/14/2024 [facility] DATE CREATED AUTHOR AUTHOR'S ORGANIZ ATION 09/15/2024 [facility] DATE CREATED AUTHOR AUTHOR'S ORGANIZ ATION 03/22/2025 [facility] DATE CREATED AUTHOR AUTHOR'S ORGANIZ ATION 04/06/2025 [facility] EPIC Reason for Visit (unrecogniz ed section and content) Status Reason Specialty Diagnoses / Procedures Referre d By Contact Referred To Contact Closed EEG Diagnoses Generalized idiopathic epilepsy and epileptic syndromes, not intractable, without status epilepticus Procedures HC EEG 16+ CHANNEL TELEMTERY 24HR Spike Garcia MD [address] [facility] [address] [place] [address] M[address]z E[address] [place] [address] Status Reason Specialty Diagnoses / Procedures Referre d By Contact Referred To Contact Closed Radiology Diagnoses Generalized idiopathic epilepsy and epileptic syndromes, not intractable, without status epilepticus Procedures HC MRI-BRAIN WO & W CONTRAST Spike Garcia MD [address] [facility] [address] [place] [address] Mloz Mri [address] [place] [address] Reason Comments Seizures Seizure like activit y Reason Comments Appointment Reason Comments Bleeding With Reason Comments Seizures Medication udates Reason Comments Seizures Reason Comments Follow-up Follow from obgyn hospitalist physician appt for elevated BP Reason Comments Amenorrhea [...] Care Teams (unrecognized sec tion and content) Bag Loader Relationship Specialty Start Date End Date Koffi Uriarte MD PCP - General Family Practice 08/17/16 Bag Loader Relationship Specialty Start Date End Date Koffi Uriarte MD PCP - General Family Practice 08/17/16 Bag Loader Relationship Specialty Start [place] [address] [place] [address] PCP - General 08/14/20 [place] [address] [address] PCP - MMO ACO PCP 02/16/23 Team Status: Active Member Role Status Dates Norma Houser APRN Primary Care Provider Active Team Status: Inactive Member Role Status Dates Yusra Whitehead APRN Attending Provider Active Start: November 09, 2023 End: November 09, 2023 Norma Houser APRN Primary Care Provider Active Start: November 09, 2023 End: November 09, 2023 Bag Loader Relationship Specialty [place] [address] [place] [address] PCP - General 08/14/20 Bag Loader Relationship Specialty Start [place] [address] [place] [address] PCP - General 08/14/20 Bag Loader Relationship Specialty Start [place] [address] [place] [address] PCP - General Family Medicine 01/14/23 Bag Loader Relationship Specialty Start [place] [address] [address] PCP - General Family Medicine 01/14/23 Bag Loader Relationship Specialty [place] [address] [place] [address] PCP - General Family Medicine 01/14/23 Bag Loader Relationship Specialty Start [place] [address] [place] [address] PCP - General Family Medicine 01/14/23 Bag Loader Relationship Specialty Start [place] [address] [address] PCP - General Family Medicine 01/14/23 Bag Loader Relationship Specialty [place] [address] [place] [address] PCP - General Family Medicine 01/14/23 Bag Loader Relationship Specialty [place] [address] [place] [address] PCP - General Family Medicine 01/14/23 Bag Loader Relationship Specialty [place] [address] [place], [place] [id number] PCP - General [facility] Medicine 01/14/23 Bag Loader Relationship Specialty Start [place] [address] [place] [address] PCP - General Family Medicine 01/14/23 Goals [...] BE BASED ON THE PRIMARY CLINICAL RECORDS. [facility] Valentin [facility]. provides no warranty or guarantee of the accuracy or completeness of information in this document.
--- OUTSIDE RECORDS SUMMARY | 2025-04-07 10:13 | XMS_ITS | Encounter Summary ---
Author Organization [facility] Address [address] [place] [address] Phone Care Team Providers Care Vacuum Filter Operator Name Role Phone Suzanne Uriarte MD Primary Care Provider + Suzanne Uriarte MD Unavailable [phone] Suzanne Uriarte MD Unavailable [phone] Encounter Details Date Type Department Care Team (Late Contact Info) Description 05/21/2023 Patient Risk Score ACO Care Management [address] [place] [address] Social History Tobacco Use Types [...] Department Care Team (Late Contact Info) Description 05/01/2025 10:00 AM EDT Office Visit [address] [place] [address] Nedra Deleon MD [address] [place] [address] Dr [address], [address] [address] documented as of this encounter Visit Diagnoses Not on filedocumented in this encounter Care Teams Vacuum Filter Operator Relationship Specialty [place] [address] [place], [place] [address] PCP - General 08/14/20 [place] [address] [address] PCP - MMO ACO PCP 07/19/23 12/17/23 [place] [address] [place], [place] [id number] PCP - MMO ACO PCP 04/18/24 07/18/24 documented as of this encounter
--- OUTSIDE RECORDS SUMMARY | 2025-04-07 10:13 | XMS_ITS | Encounter Summary ---
Author Organization [facility] Address [address] [facility] [place] [address] Care Team Providers Care Bundle Tier And Labeler Name Role Phone Suzanne Uriarte MD Primary Care Provider [phone]- [phone] Encounter Details Date Type Department Care Team (Late st Contact Info) Description 01/30/2025 Abstract [facility] [address] [facility] [place] [address] Willis Chen DO [address] [facility] [address] Clary [place], [facility]11 Social History Tobacco Use Types Packs/Day [...] 9:50 AM EDT Routine JOSY [facility]TON [address] [place] [address] Roula Grullon PA [address] [facility] [address] [place], [facility]11 documented as of this encounter Goals Goal Patient Goal Type Associated Problems Recent Progress Patient-Stated? Author Reminders Care Plan OB Reminders No Open Scheduling, Background documented as of this encounter Visit Diagnoses Not on filedocumented in this encounter Additional Health Concerns Active Problems Noted Date Diagnosed Date OB Reminders 01/14/2023 documented as of this encounter Care Teams Bundle Tier And Labeler Relationship Specialty Start [place] [address] [place] [address] PCP - General Family Medicine 01/14/23 documented as of this encounter
--- OUTSIDE RECORDS SUMMARY | 2025-04-07 10:13 | XMS_ITS | Encounter Summary ---
Author Organization [facility] Address [address] [facility] [place] [address] Care Team Providers Care Developmental Mathematics Professor Name Role Phone Suzanne Uriarte MD Primary Care Provider [phone]- [phone] Encounter Details Date Type Department Care Team (Late st Contact Info) Description 07/20/2023 Clinisync Result Encounter NOMS External Department Unsolicited Lisa Chen DO [address] [facility] [address]ary [place], [facility]11 Social History Tobacco Use Types Packs/Day Years [...] Info) Description 04/30/2025 9:50 AM EDT Routine [facility] OBGYN [address] [facility] [place] [address] Roula Grullon PA [address] [facility] [address] [place], [facility]11 (work) documented as of this encounter Goals [...] AM EST Narrative 07/20/2023 7:14 AM EST [address] [address] Ultrasound Report Signed Patient: PRINCESS CANTU MR#: [id number] : 1995 Acct:[id number] Age/Sex: 27 / F ADM Date: 07/17/23 Loc: US Attending Dr: Lisa Chen D.O. Ordering Physician: Lisa Chen D.O. Date of Service: 07/17/23 Procedure(s): US OB BPP w non-stress Accession Number(s): [id number] cc: Lisa Chen D.O.; Physician,Non-Staff M.No [address] [address] Patient Name: PRINCESS CANTU MRN: [facility]:[id number] date: 1995 Sex: F Assigned Patient Location: US Current Patient Location: Accession/Order Number: [id number] Exam Date: 07/17/2023 11:20 Report Date: 07/20/2023 [...] M.D. Signed By: 07/20/23713 DD/ 0 TD/TT: Health Policy Manager: Procedure Note Radiology, Radiologist, MD - 09/22/2023 [place] [address] Ultrasound Report Signed Patient: PRINCESS CANTU AMR#: [id number] : 1995Acct:[id number] Age/Sex: 27 / FADM Date: 07/17/23 Loc: US Attending Dr: Lisa Chen D.O. Ordering Physician: Lisa Chen D.O. Date of Service: 07/17/23 Procedure(s): US OB BPP w non-stress Accession Number(s): [id number] cc: Lisa Chen D.O.; Physician,Non-Staff Jake The [place] [id number] Patient Name: PRINCESS CANTU MRN: [facility]:[id number] date: 1995 Sex: F Assigned Patient Location: US Current Patient Location: Accession/Order Number: [id number] Exam Date: 07/17/2023 11:20 Report Date: 07/20/2023 [...] River M.D. Signed By:07/20/2314 DD/ 0 TD/TT: Health Policy Manager: us Lisa Estevezo DO [facility] Final Result documented in this encounter Visit Diagnoses Not on filedocumented in this encounter Additional Health Concerns Active Problems Noted Date Diagnosed Date OB Reminders 01/14/2023 documented as of this encounter Care Teams Developmental Mathematics Professor Relationship Specialty Start [place] [address] [place] [address] PCP - General Family Medicine 01/14/23 documented as of this encounter
--- OUTSIDE RECORDS SUMMARY | 2025-04-07 10:13 | XMS_ITS | Encounter Summary ---
Author Organization [facility] Address [address] [facility] [place] [address] Care Team Providers Care Equestrian Trainer Name Role Phone Suzanne Uriarte MD Primary Care Provider +1- [phone] Encounter Details Date Type Department Care Team (Late st Contact Info) Description 08/02/2023 Abstract [facility] [address] [facility] [address] Lynette Engel LPN [address] [place] [id number] Social History Tobacco Use Types Packs/Day Years [...] 9:50 AM EDT Routine JOSY [facility]TON [address] [facility] [place] [address] Roual Grullon PA [address] [facility] [address] [place], [place] [address] documented as of this encounter Goals Goal Patient Goal Type Associated Problems Recent Progress Patient-Stated? Author Reminders Care Plan OB Reminders No Open Scheduling, Background documented as of this encounter Visit Diagnoses Not on filedocumented in this encounter Additional Health Concerns Active Problems Noted Date Diagnosed Date OB Reminders 01/14/2023 documented as of this encounter Care Teams Equestrian Trainer Relationship Specialty Start [place] [address] [place], [place] [address] PCP - General Family Medicine 01/14/23 documented as of this encounter
--- OUTSIDE RECORDS SUMMARY | 2025-04-07 10:13 | XMS_ITS | Encounter Summary ---
Author Organization [facility] Address [address] [facility] [place] [address] Care Team Providers Care Recovery Engineer Name Role Phone Suzanne Uriarte MD Primary Care Provider +1- [phone] Encounter Details Date Type Department Care Team (Late st Contact Info) Description 07/26/2023 Clinisync Result Encounter NOMS External Department Unsolicited Lisa Chen DO [address] [facility] [address]ary [place], [facility]11 Social History Tobacco Use Types Packs/Day Years [...] AM EDT Routine [facility] [address] [facility] [place] [address] Roula Grullon PA [address] [facility] [place] [address] documented as of this encounter Goals Goal [...] AM EST Narrative 07/26/2023 7:12 [place] [address] Ultrasound Report Signed Patient: KAVYA CANTU MR#: [id number] : 1995 Acct:[id number] Age/Sex: 27 / F ADM Date: 07/24/23 Loc: US Attending Dr: Lisa Chen D.O. Ordering Physician: Lisa Chen D.O. Date of Service: 07/24/23 Procedure(s): US OB BPP w non-stress Accession Number(s): [id number] cc: Lisa Chen D.O.; Physician,Non-Staff M.No The [address] [address] Patient Name: KAVYA CANTU MRN: [id number]:[id number] date: 1995 Sex: F Assigned Patient Location: [facility] Current Patient Location: Accession/Order Number: [id number] Exam Date: 07/24/2023 08:19 Report Date: 07/26/2023 [...] M.D. Signed By: 07/26/23711 DD/ 8 TD/TT: Cigar Head Perforator: Procedure Note Radiology, Radiologist, - 09/22/2023 [place] [address] Ultrasound Report Signed Patient: KAVYA CANTU AMR#: [id number] : 1995Acct:[id number] Age/Sex: 27 / FADM Date: 07/24/23 Loc: US Attending Dr: Lisa Chen D.O. Ordering Physician: Lisa Chen D.O. Date of Service: 07/24/23 Procedure(s): US OB BPP w non-stress Accession Number(s): [id number] cc: Lisa Chen D.O.; Physician,Non-Staff Jake The [place] [address] Patient Name: KAVYA CANTU MRN: [facility]:[id number] date: 1995 Sex: F Assigned Patient Location: [facility] Current Patient Location: Accession/Order Number: [id number] Exam Date: 07/24/2023 08:19 Report Date: 07/26/2023 07:09 At the request of: LISA CHEN Procedure: US OB BPP w non-stress EXAMINATION: US OB BPP w non-stress HISTORY: Chronic hypertension COMPARISON: No relevant comparison available. TECHNIQUE: Ultrasound biophysical profile was performed in the radiology department. non-reactive stress testing was performed by nursingstaff in the birthing center. FINDINGS: BREATHING MOVEMENTS: 2.0 GROSS BODY MOVEMENTS: 2.0 TONE: 2.0 QUALITATIVE AMNIOTIC FLUID VOLUME: 2.0 PRESENTATION: BREECH HEART RATE: 133.0 bpm H.B./min AMNIOTIC FLUID VOLUME: 12.7 cm cm GESTATIONAL AGE: 35 weeks 5 days CONCLUSION: Total biophysical profile score: 8.0 Electronically authenticated by: HAYLIE RIVER Date: 07/26/2023 07:09 Dictated By: Haylie River M.D. Signed By:07/26/23711 DD/ 8 TD/TT: Cigar Head Perforator: us Lisa Estevezo DO [facility] Final Result documented in this encounter Visit Diagnoses Not on filedocumented in this encounter Additional Health Concerns Active Problems Noted Date Diagnosed Date OB Reminders 01/14/2023 documented as of this encounter Care Teams Recovery Engineer Relationship Specialty Start [place] [address] [place] [address] PCP - General Family Medicine 01/14/23 documented as of this encounter
--- OUTSIDE RECORDS SUMMARY | 2025-04-07 10:13 | XMS_ITS | Encounter Summary ---
Author Organization [facility] Address [address] [facility] [place] [address] Care Team Providers Care Prepleater Name Role Phone Suzanne Uriarte MD Primary Care Provider +1- [phone] Encounter Details Date Type Department Care Team (Late st Contact Info) Description 08/03/2023 Clinisync Result Encounter NOMS External Department Unsolicited Lisa Chen DO [address] [facility] [address] [place], [facility]11 Social History Tobacco Use Types Packs/Day [...] AM EDT Routine [facility] [address] [facility] [place] [address] Roula Grullon PA [address] [place] [address] documented as of this encounter Goals Goal [...] AM EST Narrative 08/03/2023 7:20 [place] [address] Ultrasound Report Signed Patient: KAVYA CANTU MR#: [id number] : 1995 Acct:[id number] Age/Sex: 27 / F ADM Date: 07/31/23 Loc: US Attending Dr: Lisa Chen D.O. Ordering Physician: Lisa Chen D.O. Date of Service: 07/31/23 Procedure(s): US OB BPP w non-stress Accession Number(s): [id number] cc: Lisa Chen D.O.; Physician,Non-Staff M.No The [address] [address] Patient Name: KAVYA CANTU MRN: [facility]:[id number] date: 1995 Sex: F Assigned Patient Location: Current Patient Location: Accession/Order Number: [id number] Exam Date: 07/31/2023 11:04 Report Date: 08/03/2023 [...] M.D. Signed By: 08/03/23719 DD/ 7 TD/TT: Semiconductor Wafers Etcher Stripper: Procedure Note Radiology, Radiologist, - 09/22/2023 [place] [address] Ultrasound Report Signed Patient: KAVYA CANTU AMR#: [id number] : 1995Acct:[id number] Age/Sex: 27 / FADM Date: 07/31/23 Loc: US Attending Dr: Lisa Chen D.O. Ordering Physician: Lisa Chen D.O. Date of Service: 07/31/23 Procedure(s): US OB BPP w non-stress Accession Number(s): [id number] cc: Lisa Chen D.O.; Physician,Non-Staff Jake The [place] [address] Patient Name: KAVYA CANTU MRN: [id number] date: 1995 Sex: F Assigned Patient Location: US Current Patient Location: US Accession/Order Number: [id number] Exam Date: 07/31/2023 11:04 Report Date: 08/03/2023 [...] By: Haylie River M.D. Signed By:08/03/23719 DD/ 7 TD/TT: Semiconductor Wafers Etcher Stripper: us Lisa April DO [facility] Final Result documented in this encounter Visit Diagnoses Not on filedocumented in this encounter Additional Health Concerns Active Problems Noted Date Diagnosed Date OB Reminders 01/14/2023 documented as of this encounter Care Teams Prepleater Relationship Specialty Start [place] [address] [place] [address] PCP - General Family Medicine 01/14/23 documented as of this encounter
--- OUTSIDE RECORDS SUMMARY | 2025-04-07 10:13 | XMS_ITS | Encounter Summary ---
Author Organization [facility] Address [address] [facility] [place] [address] Care Team Providers Care Academic Guidance Specialist Name Role Phone Suzanne Uriarte MD Primary Care Provider +1- [phone] Encounter Details Date Type Department Care Team (Late st Contact Info) Description 08/02/2023 Abstract [facility] [address] [facility] [address] Lynette Engel LPN [address] [place] [id number] Social History Tobacco Use Types Packs/Day Years [...] 9:50 AM EDT Routine JOSY [facility] [address] [facility] [place] [address] Roula Grullon PA [address] [facility] [address] [place], [place] [address] documented as of this encounter Goals Goal Patient Goal Type Associated Problems Recent Progress Patient-Stated? Author Reminders Care Plan OB Reminders No Open Scheduling, Background documented as of this encounter Visit Diagnoses Not on filedocumented in this encounter Additional Health Concerns Active Problems Noted Date Diagnosed Date OB Reminders 01/14/2023 documented as of this encounter Care Teams Academic Guidance Specialist Relationship Specialty Start [place] [address] [place], [place] [address] PCP - General Family Medicine 01/14/23 documented as of this encounter
--- OUTSIDE RECORDS SUMMARY | 2025-04-07 10:13 | XMS_ITS | Encounter Summary ---
Author Organization [facility] Address [address] [facility] [place] [address] Care Team Providers Care Associate Agent Insurance Sales Name Role Phone Suzanne Uriarte MD Primary Care Provider +1- [phone] Encounter Details Date Type Department Care Team (Late st Contact Info) Description 08/04/2023 Abstract JOSY [facility] [address] [facility] [place] [address] Willis Chen DO [address] [facility] [address] [place], [facility]11 Social History Tobacco Use Types Packs/Day [...] AM EDT Routine JOSY [facility] [address] [facility] [place] [address] Roula Grullon PA [address] [facility] [address] [place], [place] [address] documented as of this encounter Goals Goal Patient Goal Type Associated Problems Recent Progress Patient-Stated? Author Reminders Care Plan OB Reminders No Open Scheduling, Background documented as of this encounter Visit Diagnoses Not on filedocumented in this encounter Additional Health Concerns Active Problems Noted Date Diagnosed Date OB Reminders 01/14/2023 documented as of this encounter Care Teams Associate Agent Insurance Sales Relationship Specialty Start [place] [address] [place], [place] [address] PCP - General Family Medicine 01/14/23 documented as of this encounter
--- OUTSIDE RECORDS SUMMARY | 2025-04-07 10:13 | XMS_ITS | Clinical Summary ---
Author Organization [facility] Address [address] [place] [address] Care Team Providers Care Homoeopath Name Role Phone Koffi Winters MD Primary Care Provider [phone] Allergies No known active allergies Medications lamoTRIgine (LaMICtal) 100 MG tablet Take 100 mg by mouth in the morning and 100 mg in the evening. Active MV-Min-Fe Fum-FA-DHA ( 1 PO) Take by mouth Active labetalol (Normodyne) 200 MG tabletIndications :Secondary hypertension TAKE 1 TABLET BY MOUTH TWICE A DAY 60 tablet 3 5 Active docusate sodium (Colace) 50 MG capsule Take 50 mg by mouth in the morning and 50 mg before bedtime. Active promethazine (Phenergan) 12.5 MG tabletIndications :Nausea and vomiting, unspecified vomiting type Take 2 tablets (25 mg) by mouth every 6 (six) hours if needed for nausea or vomiting for up to 30 doses Take 1 tablet by mouth every 6 hours as needed for nausea. 30 tablet 1 5 Active Active Problems Problem Noted Date Diagnosed Date Breech presentation, no version ([facility]) 2023 Hypertension 01/14/2023 Seizure 07/09/2021 Estimated Date of Delivery Comme nts Yes 08/20/2025 Based on last me nstrual period of 11/13/2024 Encounters Date Type Department Care Team Description 04/04/2025 3:10 PM EDT Routine [facility] [address] [place] [address] [place] [address] Lisa Chen, DO 20 weeks gestation of ([facility]); Second trimester ([facility]) 04/04/2025 Clinisync Result Encounter [facility] External Department Unsolicited Lisa Chen, 04/04/2025 Clinisync Result Encounter NOMS External Department Unsolicited Lisa Chen, DO 03/28/2025 Travel 03/23/2025 [place] [address] Damaris Agosto MA 03/16/2025 [place] [address] Lisa Chen, 03/14/2025 3:00 PM EDT [place] [address] Amniotic band in second trimester, single or unspecified fetus ([facility]) 03/13/2025 Travel 03/07/2025 3:20 [place] [address] Roula Grullon PA Well woman exam with routine gynecological exam; Second trimester ([facility]); 16 weeks gestation of ([facility]); Vaginal discharge; STD exposure; Screening, , for anatomic survey ([facility]) 03/07/2025 Clinisync Result Encounter NOMS External Department Unsolicited Roula Grullon PA 03/07/2025 External Result Encounter [facility]OMS External Department Unsolicited Roula Grullon PA 03/07/2025 [place] [address] Roula Grullon PA 03/07/2025 Travel 02/27/2025 [place] [address] Apple Gallagher, CHRIS US OB less than 14 weeks early 02/27/2025 Telephone [facility] [address] [place] [address] Apple Gallagher LPN 02/21/2025 3:00 PM EDT Ancillary Procedure [facility] [address] [place] [address] Missed menses; Subchorionic hematoma in second trimester, single or unspecified fetus ([facility]) 02/19/2025 Telephone [facility] [address] [facility] [address] Damaris Agosto MA 02/14/2025 Travel 02/07/2025 3:10 PM EDT Routine [facility] [address] [place] [address] Lisa Chen, First trimester ([facility]); 12 weeks gestation of ([facility]); Missed menses; Subchorionic hematoma in second trimester, single or unspecified fetus ([facility]) 02/07/2025 Bamboo flowsheet [facility] [address] [facility] [address] Lisa Chen DO 02/01/2025 9:20 AM EDT Routine [facility] [address] [place] [address] Roula Grullon PA Nausea and vomiting, unspecified vomiting type (Primary Dx); First trimester ([facility]); 11 weeks gestation of ([facility]) 02/01/2025 Refill [facility] [address] [place] [address] Roula Grullon PA Nausea and vomiting, unspecified vomiting type 02/01/2025 Bamboo flowsheet [facility] [address] [facility] [address] Roula Grullon PA 01/31/2025 Travel 01/30/2025 Abstract [facility] [address] [facility] [address] Lisa Chen, DO 01/30/2025 Abstract [facility] [address] [facility] [address] Lisa Chen, DO 01/30/2025 Abstract [facility] [address] [place] [address] [place] [address] Lisa Chen, DO 01/22/2025 Clinisync Result Encounter NOMS External Department Unsolicited Lisa Chen, DO 01/12/2025 11:00 AM EDT Initial [facility] [place] [address] GA: 8w4d 01/12/2025 10:30 AM EDT Ancillary Procedure [facility] [address] [place] [address] [place] [address] Missed menses 01/05/2025 Travel from Last 3 [...] oz) 04/04/2025 3:12 P M EDT Height 175.3 cm (5' 9 ) 11/16/2022 12:00 PM EDT Body Mass Index 27.04 11/16/2022 12:00 PM EDT Plan of Treatment Upcoming Encounters Date Type Department Care Team (Late st Contact Info) Description 04/30/2025 9:50 AM EDT Routine [facility] [address] [facility] [address] Roula Grullon PA [address] [facility] [place] [address] Health Maintenance Due Date Last Done Comments HPV/Cotest 10/02/2023 Influenza Vaccine (#1) 2025 , 04/21/2022, 04/18/2021, Additional history exists Cervical Cancer Screening 03/07/2028 Pap Smear 03/07/2028 03/07/2025, 03/09/2023 Goals Goal Patient Goal Type Associated Problems Recent Progress Patient-Stated? Author Reminders Care Plan OB Reminders No Open Scheduling, Background Procedures Procedure Name Priority Date/Time Associated Diagnosis Comments POCT URINALYSIS DIPSTICK Routine 04/04/2025 3:20 PM EDT 20 weeks gestation of ([facility]) Second trimester ([facility]) US OB ANATOMY 04/04/2025 9:12 AM EDT US OB CERVICAL LENGTH 04/04/2025 9:12 AM EDT US OB LIMITED 1+ FETUSES Routine 03/14/2025 3:22 PM EDT Amniotic band in second trimester, single or unspecified fetus ([facility]) RECURRENT VAGINITIS (HTRX) Routine 03/07/2025 4:35 PM EDT POCT URINALYSIS DIPSTICK Routine 03/07/2025 3:49 PM EDT Second trimester ([facility]) 16 weeks gestation of ([facility]) IGP,APTIMA HPV,AGE GDLN Routine 03/07/2025 3:24 PM EDT PAP SMEAR Routine 03/07/2025 12:00 AM EDT US OB < 14 WEEKS EARLY Routine 02/21/2025 3:26 PM EDT Missed menses Subchorionic hematoma in second trimester, single or unspecified fetus ([facility]) POCT URINALYSIS DIPSTICK Routine 02/07/2025 3:19 PM EDT First trimester ([facility]) 12 weeks gestation of ([facility]) CULTURE, URINE, ROUTINE Routine 02/01/2025 4:07 PM EDT Missed menses BOX TEST Routine 01/22/2025 2:36 PM EDT HBSAG SCREEN Routine 01/22/2025 2:32 PM EDT RAPID PLASMA REAGIN, QUANT Routine 01/22/2025 2:32 PM EDT HCV ANTIBODY RFX TO QUANT PCR Routine 01/22/2025 2:32 PM EDT ALL RUBELLA IGG AB Routine 01/22/2025 2: 32 PM EDT HIV AB/P24 AG WITH REFLEX Routine 01/22/2025 2:32 PM EDT ALL CBC WITH AUTO DIFF Routine 01/22/2025 2:32 PM EDT ALL TYPE AND SCREEN Routine 01/22/2025 2 :32 PM EDT MLR HEMOGLOBIN A1C Routine 01/22/2025 2: 32 PM EDT [facility] DRUG SCREEN RAPID (URINE) Routine 01/22/2025 2:17 PM EDT POCT URINALYSIS DIPSTICK Routine 01/12/2025 11:10 AM EDT Missed menses POCT , URINE Routine 01/12/2025 11:09 AM EDT Missed menses US OB TRANSVAGINAL Routine 01/12/2025 10 :57 AM EDT Missed menses from Last 3 Months Results * (ABNORMAL) POCT urinalysis dipstick manually resulted (04/04/2025 3:20 PM EDT) Only the most recent of4 resultswithin the time period is included. Color, UA Straw Clarity, UA Clear Glucose, [...] - Positive Urine 04/04/2025 3:20 PM EDT us Lisa Chen DO POINT OF CARE TEST ENTER/EDIT OR DERABLES Final Result * US OB CERVICAL LENGTH (04/04/2025 9:12 AM EDT) Anatomical Region Laterality Modality Other 04/04/2025 9:12 AM EDT Narrative 04/04/2025 9:14 [place] [address] Ultrasound Report Signed Patient: PRINCESS HUNTER MR#: [id number] : 1995 Acct:[id number] Age/Sex: 29 / F ADM Date: 04/03/25 Loc: US Attending Dr: Lisa Chen D.O. Ordering Physician: Lisa Chen D.O. Date of Service: 04/03/25 Procedure(s): US OB cervical length Accession Number(s): [id number] cc: Lisa Chen D.O.; KOFFI WINTERS M.D. [place] [id number] Patient Name: PRINCESS HUNTER MRN: [id number] date: 1995 Sex: F Assigned Patient Location: US Current Patient Location: Accession/Order Number: [id number] Exam Date: 04/03/2025 18:53 Report Date: 04/04/2025 09:12 At the request of: LISA CHEN DO Procedure: US OB anatomy CLINICAL [...] all 4 extremities were surveyed by the chemical instrumentation officer and no abnormalities were reported. The stomach, [...] Pisano M.D. 04/04/2025 9:12 AM Dictation Location: [facility] Electronically authenticated by: [id number] Y Date: 04/04/2025 09:12 Dictated By: Cyndi Pisano M.D. Signed By: 04/04/25913 DD/ 1 TD/TT: Emergency Manager: Procedure Note Radiology, Radiologist, - 04/04/2025 [place] [address] Ultrasound Report Signed Patient: PRINCESS HUNTER AMR#: [id number] : 1995Acct:[id number] Age/Sex: 29 / FADM Date: 04/03/25 Loc: US Attending Dr: Lisa Chen D.O. Ordering Physician: Lisa Chen D.O. Date of Service: 04/03/25 Procedure(s): US OB cervical length Accession Number(s): [id number] cc: Lisa Chen D.O.; KOFFI WINTERS M.D. [place] [id number] Patient Name: PRINCESS HUNTER MRN: [id number] date: 1995 Sex: F Assigned Patient Location: US Current Patient Location: Accession/Order Number: [id number] Exam Date: 04/03/2025 18:53 Report Date: 04/04/2025 09:12 At the request of: LISA CHEN DO Procedure: US OB anatomy CLINICAL DATA: Screening anatomy survey ULTRASOUND OB ANATOMY COMPARISON: 01/30/2025 There is a single live intrauterine gestation in variable presentation.There is cardiac and somatic activity with heart rate of 153 beats per minutes. The amniotic fluid volume is subjectively normal. The placentais posterior and fundal and unremarkable in appearance. The neural axis andall 4 extremities were surveyed by the chemical instrumentation officer and no abnormalities were reported. The stomach, [...] on these measurements is 20 weeks 1 day+/- 1 week 3 days. This correlates with dates based on the prior. US/US OB cervical length IMPRESSION: SINGLE LIVE INTRAUTERINE GESTATION WITH ULTRASOUND AGE OF 20 WEEKS 1 DAY. UNREMARKABLE ANATOMY SURVEY. ULTRASOUND OB CERVICAL LENGTH COMPARISON: 01/30/2025 The cervix was evaluated with a transvaginal probe. The cervix is closedand the estimated length is 4.2 cm. The end of the placenta is approximately5.6 cm from the internal cervical os. IMPRESSION: NORMAL CLOSED CERVIX. Impression dictated by: Cyndi Pisano M.D. 04/04/2025 9:12 AM Dictation Location: [place] [address] Electronically authenticated by: [id number] Y Date: 9:12 Dictated By: Cyndi Pisano M.D. Signed By:04/04/25913 DD/ 1 TD/TT: Emergency Manager: us Lisa Chen DO [facility] Final Result * US OB ANATOMY (04/04/2025 9:12 AM EDT) Anatomical Region Laterality Modality Other 04/04/2025 9:12 AM EDT Narrative 04/04/2025 9:14 [place] [address] Ultrasound Report Signed Patient: PRINCESS HUNTER MR#: [id number] : 1995 Acct:[id number] Age/Sex: 29 / F ADM Date: 04/03/25 Loc: US Attending Dr: Lisa Chen D.O. Ordering Physician: Lisa Chen D.O. Date of Service: 04/03/25 Procedure(s): US OB anatomy Accession Number(s): [id number] cc: Lisa Chen D.O.; KOFFI WINTERS M.D. [address] [address] Patient Name: PRINCESS HUNTER MRN: [facility]:[id number] date: 1995 Sex: F Assigned Patient Location: Current Patient Location: Accession/Order Number: [id number] Exam Date: 04/03/2025 18:53 Report Date: 04/04/2025 09:12 At the request of: LISA CHEN DO Procedure: US OB anatomy CLINICAL [...] all 4 extremities were surveyed by the chemical instrumentation officer and no abnormalities were reported. The stomach, [...] Pisano M.D. 04/04/2025 9:12 AM Dictation Location: [place] [address] Electronically authenticated by: [id number] Y Date: 04/04/2025 09:12 Dictated By: Cyndi Pisano M.D. Signed By: 04/04/25913 DD/ 1 TD/TT: Emergency Manager: Procedure Note Radiology, Radiologist, - 04/04/2025 The [place] [id number] Ultrasound Report Signed Patient: PRINCESS HUNTER AMR#: [id number] : 1995Acct:[id number] Age/Sex: 29 / FADM Date: 04/03/25 Loc: US Attending Dr: Lisa Chen D.O. Ordering Physician: Lisa Chen D.O. Date of Service: 04/03/25 Procedure(s): US OB anatomy Accession Number(s): [id number] cc: Lisa Chen D.O.; KOFFI WINTERS M.D. [facility] [place] [id number] Patient Name: PRINCESS HUNTER MRN: [id number] date: 1995 Sex: F Assigned Patient Location: US Current Patient Location: Accession/Order Number: [id number] Exam Date: 04/03/2025 18:53 Report Date: 04/04/2025 09:12 At the request of: LISA CHEN DO Procedure: US OB anatomy CLINICAL DATA: Screening anatomy survey ULTRASOUND OB ANATOMY COMPARISON: 01/30/2025 There is a single live intrauterine gestation in variable presentation.There is cardiac and somatic activity with heart rate of 153 beats per minutes. The amniotic fluid volume is subjectively normal. The placentais posterior and fundal and unremarkable in appearance. The neural axis andall 4 extremities were surveyed by the chemical instrumentation officer and no abnormalities were reported. The stomach, [...] on these measurements is 20 weeks 1 day+/- 1 week 3 days. This correlates with dates based on the prior. US/US OB anatomy IMPRESSION: SINGLE LIVE INTRAUTERINE GESTATION WITH ULTRASOUND AGE OF 20 WEEKS 1 DAY. UNREMARKABLE ANATOMY SURVEY. ULTRASOUND OB CERVICAL LENGTH COMPARISON: 01/30/2025 The cervix was evaluated with a transvaginal probe. The cervix is closedand the estimated length is 4.2 cm. The end of the placenta is approximately5.6 cm from the internal cervical os. IMPRESSION: NORMAL CLOSED CERVIX. Impression dictated by: Cyndi Pisano M.D. 04/04/2025 9:12 AM Dictation Location: [place] [address] Electronically authenticated by: [id number] Y Date: 9:12 Dictated By: Cyndi Pisano M.D. Signed By:04/04/25913 DD/ 1 TD/TT: Emergency Manager: us Lisa April DO [facility] Final Result * US OB limited 1+ fetuses (03/14/2025 3:22 PM EDT) Anatomical Region Laterality Modality Body Ultrasound 03/15/2025 2:08 PM EDT Impressions 03/15/2025 2:28 PM EDT Normal viable fetus, no gestational sac abnormality TRANSCRIBED BY: ELECTRONICALLY SIGNED BY: Michael Eid MD Narrative 03/15/2025 2:28 PM EDT FINDINGS: Cephalic presentation. Posterior placenta. heart rate 156. No evidence of significant amniotic band or subchronic hemorrhage. Procedure Note Michael Eid MD - 03/15/2025 FINDINGS: Cephalic presentation. Posterior placenta. heart rate 156. Noevidence of significant amniotic band or subchronic hemorrhage. IMPRESSION: Normal viable fetus, no gestational sac abnormality TRANSCRIBED BY: ELECTRONICALLY SIGNED BY: Michael Eid MD us Lisa Estevezo DO IMG OB US PROCEDURES Final Resul t * RECURRENT VAGINITIS (HTRX) (03/07/2025 4:35 PM EDT) ATOPOBIUM VAGINAE 0 19.961 - 24.689 ppm 03/09/2025 6:25 AM EDT [facility] ATOPOBIUM VAGINAE Not Detected 19.961 - 24.689 ppm 03/09/2025 6:25 AM EDT [facility] BVAB 2,3 (BACTERIAL VAGINOSIS ASSOCIATED BACTERIA 2, 3); MOBILUNCUS SPP 0 19.961 - 24.689 ppm 03/09/2025 6:25 AM EDT [facility] BVAB 2,3 (BACTERIAL VAGINOSIS ASSOCIATED BACTERIA 2, 3); MOBILUNCUS SPP Not Detected 19.961 - 24.689 ppm 03/09/2025 6:25 AM EDT [facility] MITCH ALBICANS, PARAPSILOSIS, TROPICALIS 0 23.000 - 30.347 ppm 03/09/2025 6:25 AM EDT [facility] MITCH ALBICANS, PARAPSILOSIS, TROPICALIS Not Detected 23.000 - 30.347 ppm 03/09/2025 6:25 AM EDT [facility] MITHC GLABRATA 0 23.000 - 31.618 ppm 03/09/2025 6:25 AM EDT [facility] MITCH GLABRATA Not Detected 23.000 - 31.618 ppm 03/09/2025 6:25 AM EDT [facility] MITCH KRUSEI 0 23.000 - 30.873 ppm 03/09/2025 6:25 AM EDT [facility] MITCH KRUSEI Not Detected 23.000 - 30.873 ppm 03/09/2025 6:25 AM EDT [facility] CHLAMYDIA TRACHOMATIS 0 23.000 - 31.586 ppm 03/09/2025 6:25 AM EDT [facility] CHLAMYDIA TRACHOMATIS Not Detected 23.000 - 31.586 ppm 03/09/2025 6:25 AM EDT [facility] GARDNERELLA VAGINALIS 0 19.961 - 24.689 ppm 03/09/2025 6:25 AM EDT [facility] GARDNERELLA VAGINALIS Not Detected 19.961 - 24.689 ppm 03/09/2025 6:25 AM EDT [facility] MEGASPHAERA (TYPES 1, 2) 0 19.961 - 24.689 ppm 03/09/2025 6:25 AM EDT [facility] MEGASPHAERA (TYPES 1, 2) Not Detected 19.961 - 24.689 ppm 03/09/2025 6:25 AM EDT [facility] NEISSERIA GONORRHOEAE 0 23.000 - 32.587 ppm 03/09/2025 6:25 AM EDT [facility] NEISSERIA GONORRHOEAE Not Detected 23.000 - 32.587 ppm 03/09/2025 6:25 AM EDT [facility] TRICHOMONAS VAGINALIS 0 23.000 - 31.995 ppm 03/09/2025 6:25 AM EDT [facility] TRICHOMONAS VAGINALIS Not Detected 23.000 - 31.995 ppm 03/09/2025 6:25 AM EDT [facility] MYCOPLASMA GENITALIUM 0 19.961 - 24.689 ppm 03/09/2025 6:25 AM EDT [facility] MYCOPLASMA GENITALIUM Not Detected 19.961 - 24.689 ppm 03/09/2025 6:25 AM EDT [facility] Tissue 03/07/2025 4:35 PM EDT 03/09/2025 1:25 AM EDT us Roula VILLEDA LAB BLOOD ORDERABLES Final Resul t [facility] [address] [address] * IGP,APTIMA HPV,AGE GDLN (03/07/2025 3:24 PM EDT) AGE GDLN ACOG TESTING Note . [facility] Comment: TESTS RESULT FLAG UNITS REF RANGE LAB Clinician Provided Cytology Information Source.............Endocervix No. of containers..01 ThinPrep Vial Age Mynor CASTANEDA Jessica... 28 01 FLAG LEGEND: L-Low Normal,H-High Normal,LL-Alert Low,HH-Alert High <-Panic Low,>-Panic High,A-Abnormal,AA-Critical Abnormal Performed at: 01 =[facility] [place] [address] Karena Lester MD, IGP, APTIMA HPV, RFX 16/18,45 Note . [facility] Comment: TESTS RESULT FLAG UNITS REF RANGE LAB DIAGNOSIS: 02 NEGATIVE FOR INTRAEPITHELIAL LESION OR MALIGNANCY. Specimen adequacy: 02 Satisfactory for evaluation. No endocervical component is identified. Performed by: 02 Calvin Dallas Reclamation Engineer ([facility]) . 02 Note: Note 02 The Pap [...] <-Panic Low,>-Panic High,A-Abnormal,AA-Critical Abnormal Performed at: [address] [address] Karena Lester MD, HPV APTIMA Negative Negative [facility] Comment: This nucleic acid amplification test detects fourteen high- risk HPV types (16,18,31,33,35,39,45,51,52,56,58,59,66,68) without differentiation. Performed at: =[facility] [id number] Food Bagging Machine Operator: Karena Lester MD, Phone: [phone] Performed at: [address] [id number] Food Bagging Machine Operator: Karena Lester MD, Phone: [phone] 03/07/2025 3:24 PM EDT 03/07/2025 9:15 PM EDT Narrative [facility] - 03/11/2025 4:10 PM EDT SPATULA-ALONE ENDOCERVIX Roula VILLEDA LAB BLOOD ORDERABLES Final Resul t Performing Organization Address [facility]/ZIP Co de Phone Number [facility] * Pap Smear (03/07/2025 12:00 AM EDT) Swab Cervical swab / Unknown Roula VILLEDA LAB CYTOLOGY ORDERABLES Final Re sult Performing Organization Address [facility]/ZIP Co de Phone Number EXTERNAL LAB * US OB less than 14 weeks early (02/21/2025 3:26 PM EDT) Anatomical Region Laterality Modality Body Ultrasound 02/22/2025 12:4 1 PM EDT Impressions 02/22/2025 2:39 PM EDT Viable intrauterine no abnormal subchorionic fluid collection. Given the additional findings within the gestational sac, follow up imaging may be of assistance. TRANSCRIBED BY: ELECTRONICALLY SIGNED BY: Michael Eid MD Narrative 02/22/2025 2:39 PM EDT FINDINGS: Single viable intrauterine , cardiac activity 145 bpm. Normal cardiac activity. No significant subchorionic fluid collection. Thin septation neighboring the cord, questionable significance, possible developing band. Procedure Note Michael Eid MD - 02/22/2025 FINDINGS: Single viable intrauterine , cardiac activity 145 bpm. Normalcardiac activity. No significant subchorionic fluid collection. Thinseptation neighboring the cord, questionable significance, possibledeveloping band. IMPRESSION: Viable intrauterine no abnormal subchorionic fluid collection.Given the additional findings within the gestational sac, follow upimaging may be of assistance. TRANSCRIBED BY: ELECTRONICALLY SIGNED BY: Michael Eid MD us Lisa April DO IMG OB US PROCEDURES Final Resul t * Urine culture (02/01/2025 4:07 PM EDT) Urine Urine specimen obtained by clean catch procedure / Unknown us Lisa April DO LAB MICROBIOLOGY - GENERAL ORDER STEPHANIE Final Result EXTERNAL LAB * BOX TEST (01/22/2025 2:36 PM EDT) BOX TEST SENT OUT YES [facility] BOX1 [facility] BOX2 01/22/25 [facility] 01/22/2025 2:36 PM EDT 01/22/2025 2:45 PM EDT Narrative [facility] - 01/22/2025 2:46 PM EDT us Lisa April DO LAB BLOOD ORDERABLES Final Resul t [facility] * HBSAG SCREEN (01/22/2025 2:32 PM EDT) Pathologist [facility] HBSAG SCREEN Negative Negative [facility] Comment: Performed at: [address] [id number] Food Bagging Machine Operator: Jose Fallon PhD, Phone: [phone] 01/22/2025 2:32 PM EDT 01/22/2025 2:36 PM EDT Narrative [facility] - 01/23/2025 2:08 PM EDT Lisa April DO LAB BLOOD ORDERABLES Final Resul t Performing Organization Address [facility] Phone Number [facility] * RAPID PLASMA REAGIN, QUANT (01/22/2025 2:32 PM EDT) Pathologist [facility] RAPID PLASMA REAGIN, QUANT Non Reactive NonRea<1: 1 titer [facility] Comment: Please Note: This test does not meet current guidelines for screening and diagnosis of syphilis. This test is intended for following treatment response in patients being treated for syphilis infection. To screen for syphilis infection, a reflex cascade that includes both RPR and a treponema-specific assay should be utilized, such as Treponema pallidum (Syphilis) Screening Chazy (177412) or Rapid Plasma Reagin (RPR) Test With Reflex to Quantitative RPR and Confirmatory Treponema pallidum Antibodies (395490). Performed at: [address] [id number] Food Bagging Machine Operator: Jose Fallon PhD, Phone: [phone] 01/22/2025 2:32 PM EDT 01/22/2025 2:36 PM EDT Narrative [facility] 01/23/2025 2:08 PM EDT Lisa April DO LAB BLOOD ORDERABLES Final Resul t Performing Organization Address [facility] Co de Phone Number [facility] * HIV AB/P24 AG WITH REFLEX (01/22/2025 2:32 PM EDT) [facility] HIV AB/P24 AG SCREEN Non Reactive Non Reactive [facility] Comment: HIV-1/HIV-2 antibodies and HIV-1 p24 antigen were NOT detected. There is no laboratory evidence of HIV infection. HIV Negative Performed at: [address] [id number] Food Bagging Machine Operator: Jose Fallon PhD, Phone: [phone] 01/22/2025 2:32 PM EDT 01/22/2025 2:36 PM EDT Narrative [facility] - 01/23/2025 5:07 AM EDT Lisa April DO LAB BLOOD ORDERABLES Final Resul t Performing Organization Address [facility] Co de Phone Number [facility] * HCV ANTIBODY RFX TO QUANT PCR (01/22/2025 2:32 PM EDT) [facility] HCV AB Non Reactive Non Reactive [facility] INTERPRETATION: Comment . [facility] Comment: Not infected with HCV unless early or acute infection is suspected (which may be delayed in an immunocompromised individual), or other evidence exists to indicate HCV infection. Performed at: [address] [id number] Food Bagging Machine Operator: Jose Fallon PhD, Phone: [phone] 01/22/2025 2:32 PM EDT 01/22/2025 2:36 PM EDT Narrative [facility] - 01/23/2025 8:08 AM EDT Twisto DO LAB BLOOD ORDERABLES Final Resul t Performing Organization Address City/[facility]/ZIP Co de Phone Number [facility] * MLR HEMOGLOBIN A1C (01/22/2025 2:32 PM EDT) [facility] GLYCOHEMOGLOBIN A1C 5.0 4.5 - 6.2 % [facility] Comment: ADA RECOMMENDED LIMIT 4.0 - 6.0 ADA THERAPEUTIC TARGET < 7.0 ACTION SUGGESTED > 7.0 ESTIMATED AVERAGE GLUCOSE 97 mg/dL [facility] 01/22/2025 2:32 PM EDT 01/22/2025 2:36 PM EDT Narrative [facility] - 01/22/2025 2:51 PM EDT Lisa April DO CL[facility] Final Result Performing Organization Address [facility]/ZIP Co de Phone Number [facility] * ALL TYPE AND SCREEN (01/22/2025 2:32 PM EDT) Pathologist [facility] BLOOD TYPE A Positive [facility] ANTIBODY SCREEN NEGATIVE [facility] 01/22/2025 2:32 PM EDT 01/22/2025 2:36 PM EDT Narrative [facility] - 01/22/2025 3:23 PM EDT [facility] , Lisa April DO CLINIS[facility]NC Final Result Performing Organization Address [facility] Co de Phone Number [facility] * ALL RUBELLA IGG AB (01/22/2025 2:32 PM EDT) Pathologist [facility] RUBELLA ANTIBODIES, IGG 1.16 Immune >0.99 index [facility] Comment: Non-immune <0.90 Equivocal 0.90 - 0.99 Immune >0.99 Performed at: [facility] Lab[address] [id number] Food Bagging Machine Operator: Jose Fallon PhD, Phone: [phone] 01/22/2025 2:32 PM EDT 01/22/2025 2:36 PM EDT Narrative [facility] - 01/23/2025 8:08 AM EDT Lisa April DO CLIN[facility] Final Result Performing Organization Address City/[facility]/ZIP Co de Phone Number [facility] * (ABNORMAL) ALL CBC WITH AUTO DIFF (01/22/2025 2:32 PM EDT) [facility] WBC 8.1 4.0 - 11.0 10 3/uL [facility] RBC 4.26 4.20 - 5.40 10 6/uL [facility] TBH HGB 12.3 12.0 - 16.0 g/dL [facility]H TBH HCT 36.9 36.0 - 48.0 % [facility] MCV 86.6 81.0 - 99.0 fL [facility]H TBH MCH 28.9 26.7 - 34.0 pg TBH TBH MCHC 33.3 29.9 - 35.2 g/dL [facility] TBH RDW 13.0 11.0 - 15.0 % [facility]H TBH PLT 222 150 - 450 10 3/uL TBH TBH MPV 9.1(L) 9.5 - 13.5 fL [facility] NEUTROPHILS PERCENT AUTO 58.2 43.0 - 75.0 % [facility] LYMPHOCYTES PERCENT AUTO 36.8 20.5 - 60.0 % [facility] MONOCYTES PERCENT AUTO 4.7 1.7 - 12.0 % TBH TBH EO % 0.1(L) 0.9 - 7.0 % [facility] BASOPHILS PERCENT AUTO 0.0(L) 0.2 - 2.0 % [facility] IMMATURE GRANULOCYTES PCT AUTO 0.2 0.0 - 0.5 % TBH NEUTROPHILS ABSOLUTE AUTO 4.7 1.4 - 6.5 10 3/uL TBH LYMPHOCYTES ABSOLUTE AUTO 3.0 1.2 - 3.8 10 3/uL TBH MONOCYTES ABSOLUTE AUTO 0.4 0.3 - 0.8 10 3/uL TBH TBH EO # 0.0 0.0 - 0.7 10 3/uL TBH BASOPHILS ABSOLUTE AUTO 0.0 0.0 - 0.1 10 3/uL [facility] IMMATURE GRANULOCYTES ABS AUTO 0.02 0.00 - 0.03 10 3/uL [facility] 01/22/2025 2:32 PM EDT 01/22/2025 2:36 PM EDT Narrative [facility] - 01/22/2025 3:29 PM EDT us Lisa Chen DO CLINIS[facility] Final Result [facility] TB * [facility]H DRUG SCREEN RAPID (URINE) (01/22/2025 2:17 PM EDT) [facility] CANNABINOID SCREEN URINE NEGATIVE NEGATIVE TBH PHENCYCLIDINE SCREEN URINE NEGATIVE NEGATIVE TBH COCAINE SCREEN URINE NEGATIVE NEGATIVE TBH METHAMPHETAMINES SCREEN URINE NEGATIVE NEGATIVE TBH OPIATE SCREEN URINE NEGATIVE NEGATIVE TBH AMPHETAMINE SCREEN URINE NEGATIVE NEGATIVE TBH BENZODIAZEPINES SCREEN URINE NEGATIVE NEGATIVE TBH TRICYCLIC ANTIDEPRESSANT URINE NEGATIVE NEGATIVE TBH METHADONE SCREEN URINE NEGATIVE NEGATIVE TBH BARBITURATES SCREEN URINE NEGATIVE NEGATIVE TBH OXYCODONE SCREEN URINE NEGATIVE NEGATIVE TBH BUPRENORPHINE SCREEN URINE NEGATIVE NEGATIVE TB[facility] Comment: DRUG CLASS TEST SYSTEM CUT-OFF CONCENTRATIONS ARE FOLLOWS: AMP (Amphetamine): 500 ng/mL BAR (Barbiturates): 200 ng/mL BZO (Benzodiazepines): 150 ng/mL BUP (Buprenorphine): 10 ng/mL WON (Cocaine): 150 ng/mL mAMP (Methamphetamine): 500 ng/mL MTD (Methadone): 200 ng/mL OPI (Opiates): 100 ng/mL OXY (Oxycodone): 100 ng/mL PCP (Phencyclidine): 25 ng/mL THC (Cannabinoids): 50 ng/mL TCA (Trycyclic Antidepressants): 300 ng/mL 01/22/2025 2:17 PM EDT 01/22/2025 2:36 PM EDT Narrative [facility] - 01/22/2025 3:21 PM EDT us Lisa April DO CLINIS[facility]NC Final Result [facility] * (ABNORMAL) POCT , urine manually resulted (01/12/2025 11:09 AM EDT) Preg Test, Ur Positive Negative Urine 01/12/2025 11:0 9 AM EDT us Lisa April DO POINT OF CARE TEST ENTER/EDIT [...] II, MD, PHD at 14-Jan-2025 10:04:37 PM [facility] Procedure Note Rosenda Torres MD - [...] ROSENDA TORRES II, MD, PHD 10:04:37 PM [facility] us Lisa Chen DO IMG OB US PROCEDURES Final Resul t from Last 3 Months Additional Health Concerns Active Problems Noted Date Diagnosed Date OB Reminders 01/14/2023 Insurance [employer] [facility] Care Teams Homoeopath Relationship Specialty [place] [address] [place], [place] [phone] PCP - General Family Medicine 01/14/23
--- OUTSIDE RECORDS SUMMARY | 2025-04-07 10:13 | XMS_ITS | Encounter Summary ---
Author Organization [facility] Address [address] [place] [address] Phone Care Team Providers Care Drum Reel Cutter Name Role Phone Suzanne Uriarte MD Primary Care Provider + Suzanne Uriarte MD Unavailable [phone] Suzanne Uriarte MD Unavailable [phone] Encounter Details Date Type Department Care Team (Late st Contact Info) Description 06/20/2023 Patient Risk Score ACO Care Management [address] [place] [address] Social History Tobacco Use Types [...] Care Team (Late st Contact Info) Description 05/01/2025 10:00 AM EDT Office Visit [address] [place] [address] Nedra Deleon MD [address] [place] [address] [address], [address] [place] [address] documented as of this encounter Visit Diagnoses Not on filedocumented in this encounter Care Teams Drum Reel Cutter Relationship Specialty Start [place] [address] [place] [address] PCP - General 08/14/20 [place] [address] [place], [place] [phone] PCP - MMO ACO PCP 07/19/23 12/17/23 [place] [address] [place] [address] PCP - MMO ACO PCP 04/18/24 07/18/24 documented as of this encounter
--- OUTSIDE RECORDS SUMMARY | 2025-04-07 10:14 | XMS_ITS | Encounter Summary ---
Author Organization [facility] Address [address] [place] [address] Phone Care Team Providers Care Christmas Tree Grader Name Role Phone Suzanne Uriarte MD Primary Care Provider + Encounter Details Date Type Department Care Team (Late Contact Info) Description 07/22/2024 Patient Risk Score ACO Care Management [address] [place] [address] Social History Tobacco Use Types [...] Description 05/01/2025 10:00 AM EDT Office Visit [address] [address] [place] [address] [facility] [address], [place] [phone] documented as of this encounter Visit Diagnoses Not on filedocumented in this encounter Additional Health Concerns Assessment Noted Time A fall risk assessment has been complete d for the patient 05/03/2024 9:18 AM EDT documented as of this encounter Care Teams Christmas Tree Grader Relationship Specialty [place] [address] [facility] [place] [address] PCP - General 08/14/20 documented as of this encounter
--- OUTSIDE RECORDS SUMMARY | 2025-04-07 10:14 | XMS_ITS | Encounter Summary ---
Author Organization [facility] Address [address] [place] [address] Phone Care Team Providers Care Sap Pi Architect Name Role Phone Suzanne Uriarte MD Primary Care Provider + Encounter Details Date Type Department Care Team (Late Contact Info) Description 08/22/2024 Patient Risk Score ACO Care Management [address] [place] [address] Social History Tobacco Use Types [...] Description 05/01/2025 10:00 AM EDT Office Visit [address]iu [address] [address] [place] [address] [facility] [address], [place] [phone] documented as of this encounter Visit Diagnoses Not on filedocumented in this encounter Additional Health Concerns Assessment Noted Time A fall risk assessment has been complete d for the patient 05/03/2024 9:18 AM EDT documented as of this encounter Care Teams Sap Pi Architect Relationship Specialty [place] [address] [address] [facility] [place] [address] PCP - General 08/14/20 documented as of this encounter
--- OUTSIDE RECORDS SUMMARY | 2025-04-07 10:14 | XMS_ITS | Encounter Summary ---
Author Organization [facility] Address [address] [place] [address] Phone Care Team Providers Care Advertising Agent Name Role Phone Suzanne Uriarte MD Primary Care Provider + Suzanne Uriarte MD Unavailable [phone] Encounter Details Date Type Department Care Team (Late Contact Info) Description 12/20/2023 Patient Risk Score ACO Care Management [address] [place] [address] Social History Tobacco Use Types [...] Description 05/01/2025 10:00 AM EDT Office Visit [address] [place] [address] Nedra Deleon MD [address] [place] [address] [address], [address] [place] [address] documented as of this encounter Visit Diagnoses Not on filedocumented in this encounter Care Teams Advertising Agent Relationship Specialty Start [place] [address] [address] PCP - General 08/14/20 [place] [address] [place] [address] PCP - MMO ACO PCP 04/18/24 07/18/24 documented as of this encounter
--- OUTSIDE RECORDS SUMMARY | 2025-04-07 10:14 | XMS_ITS | Encounter Summary ---
Author Organization [facility] Address [address] [facility] [place] [address] Care Team Providers Care Second Worker Name Role Phone Suzanne Uriarte MD Primary Care Provider [phone]- [phone] Encounter Details Date Type Department Care Team (Late st Contact Info) Description 03/16/2025 Abstract NOM[facility]ale LAYTON [address] [facility] [address] [place] [address] Willis Chen DO [address] [facility] [address] Clary Soni, [facility] Social History Tobacco Use Types Packs/Day [...] 9:50 AM EDT Routine JOSY LAYTON [address] [facility] [address] [place] [address] Roula Grullon PA [address] [facility] [address] [place], [facility] documented as of this encounter Goals Goal Patient Goal Type Associated Problems Recent Progress Patient-Stated? Author Reminders Care Plan OB Reminders No Open Scheduling, Background documented as of this encounter Visit Diagnoses Not on filedocumented in this encounter Additional Health Concerns Active Problems Noted Date Diagnosed Date OB Reminders 01/14/2023 documented as of this encounter Care Teams Second Worker Relationship Specialty Start [place] [address] [address] PCP - General Family Medicine 01/14/23 documented as of this encounter
--- OUTSIDE RECORDS SUMMARY | 2025-04-07 10:14 | XMS_ITS | Encounter Summary ---
Author Organization [facility] Address [address] [place] [address] Phone Care Team Providers Care Industrial Diamond Polisher Name Role Phone Suzanne Uriarte MD Primary Care Provider + Suzanne Uriarte MD Unavailable [phone] Encounter Details Date Type Department Care Team (Late Contact Info) Description 01/19/2024 Patient Risk Score ACO Care Management [address] [place] [address] Social History Tobacco Use Types [...] Description 05/01/2025 10:00 AM EDT Office Visit [address] [place] [address] Nedra Deleon MD [address] [place] [address] [address], [address] [place] [address] documented as of this encounter Visit Diagnoses Not on filedocumented in this encounter Care Teams Industrial Diamond Polisher Relationship Specialty Start [place] [address] [address] [address] PCP - General 08/14/20 [place] [address] [place] [address] PCP - MMO ACO PCP 04/18/24 07/18/24 documented as of this encounter
--- OUTSIDE RECORDS SUMMARY | 2025-04-07 10:14 | XMS_ITS | Encounter Summary ---
Author Organization [facility] Address [address] [facility] [place] [address] Care Team Providers Care Academic Services Coordinator Name Role Phone Suzanne Uriarte MD Primary Care Provider [phone]- [phone] Encounter Details Date Type Department Care Team (Late st Contact Info) Description 04/04/2025 Clinisync Result Encounter NOMS External Department Unsolicited Lisa Chen DO [address] [facility] [address] Clary Desai, [facility]11 Social History Tobacco Use Types Packs/Day Years [...] 04/30/2025 9:50 AM EDT Routine NOMKale Desai OBDENI [address] [facility] [place] [phone] Roula Grullon PA [address] [facility] [place] [address] documented as of this encounter Goals Goal Patient Goal Type Associated Problems Recent Progress Patient-Stated? Author Reminders Care Plan OB Reminders No Open Scheduling, Background documented as of this encounter Procedures Procedure Name Priority Date/Time Associated Diagnosis Comments US OB ANATOMY 04/04/2025 9:12 AM EDT documented in this encounter Results * US OB ANATOMY (04/04/2025 9:12 AM EDT) Anatomical Region Laterality Modality Other 04/04/2025 9:12 AM EDT Narrative 04/04/2025 9:14 [place] [address] Ultrasound Report Signed Patient: KAVYA HUNTER MR#: [id number] : 1995 Acct:[id number] Age/Sex: 29 / F ADM Date: 04/03/25 Loc: US Attending Dr: Lisa Chen D.O. Ordering Physician: Lisa Chen D.O. Date of Service: 04/03/25 Procedure(s): US OB anatomy Accession Number(s): [id number] cc: Lisa Chen D.O.; SUZANNE URIARTE M.D. [address] [address] Patient Name: KAVYA HUNTER MRN: [id number] date: 1995 Sex: F Assigned Patient Location: US Current Patient Location: Accession/Order Number: [id number] Exam Date: 04/03/2025 18:53 Report Date: 04/04/2025 [...] all 4 extremities were surveyed by the medical office administrator and no abnormalities were reported. The stomach, [...] IMPRESSION: NORMAL CLOSED CERVIX. Impression dictated by: Cynid Pisano M.D. 04/04/2025 9:12 AM Dictation Location: [place] [address] Electronically authenticated by: [id number] Y Date: 04/04/2025 09:12 Dictated By: Cyndi Pisano M.D. Signed By: 04/04/25913 DD/ 1 TD/TT: Flight Agent: Procedure Note Radiology, Radiologist, MD - 04/04/2025 [place] [address] Ultrasound Report Signed Patient: KAVYA HUNTER [facility]#: [id number] : 1995Acct:[id number] Age/Sex: FADM Date: 04/03/25 Loc: US Attending Dr: Lisa Chen D.O. Ordering Physician: Lisa Chen D.O. Date of Service: 04/03/25 Procedure(s): US OB anatomy Accession Number(s): [id number] cc: Lisa Chen D.O.; SUZANNE URIARTE M.D. The [place] [address] Patient Name: KAVYA HUNTER MRN: [facility]:[id number] date: 1995 Sex: F Assigned Patient Location: Current Patient Location: Accession/Order Number: [id number] Exam Date: 04/03/2025 18:53 Report Date: 04/04/2025 [...] andall 4 extremities were surveyed by the medical office administrator and no abnormalities were reported. The stomach, [...] Pisano M.D. 04/04/2025 9:12 AM Dictation Location: [place] [address] Electronically authenticated by: [id number] Y Date: 9:12 Dictated By: Cyndi Pisano M.D. Signed By:04/04/25913 DD/ 1 TD/TT: Flight Agent: Lisa Chen DO [facility] Final Result documented in this encounter Visit Diagnoses Not on filedocumented in this encounter Additional Health Concerns Active Problems Noted Date Diagnosed Date OB Reminders 01/14/2023 documented as of this encounter Care Teams Academic Services Coordinator Relationship Specialty Start [place] [address] [address] [place] [address] PCP - General Family Medicine 01/14/23 documented as of this encounter
--- OUTSIDE RECORDS SUMMARY | 2025-04-07 10:14 | XMS_ITS | Encounter Summary ---
Author Organization [facility] Address [address] [facility] [address] Care Team Providers Care Education Paraprofessional Name Role Phone Suzanne Uriarte MD Primary Care Provider +1- [phone] Encounter Details Date Type Department Care Team (Late st Contact Info) Description 01/20/2023 Abstract JOSY LAYTON [address] [facility] [address] Willis Chen DO [address] [facility] [address] Clary Soni, [facility]11 Social History Tobacco Use Types [...] 9:50 AM EDT Routine JOSY LAYTON [address] [facility] [address] Roula Grullon PA [address] [place] [address] [place] [address] documented as of this encounter Goals Goal Patient Goal Type Associated Problems Recent Progress Patient-Stated? Author Reminders Care Plan OB Reminders No Open Scheduling, Background documented as of this encounter Visit Diagnoses Not on filedocumented in this encounter Additional Health Concerns Active Problems Noted Date Diagnosed Date OB Reminders 01/14/2023 documented as of this encounter Care Teams Education Paraprofessional Relationship Specialty Start [place] [address] [place] [address] PCP - General Family Medicine 01/14/23 documented as of this encounter
--- OUTSIDE RECORDS SUMMARY | 2025-04-07 10:14 | XMS_ITS | Encounter Summary ---
Author Organization [facility] Address [address] [facility] [place] [address] Care Team Providers Care Wood Grinder Operator Name Role Phone Suzanne Uriarte MD Primary Care Provider +[phone]- [phone] Reason for Visit * Reason Comments Med Refill Encounter Details Date Type Department Care Team (Late st Contact Info) Description 12/08/2022 Refill JOSY LAYTON [address] [facility] [place] [address] Willis Chen DO [address] [facility] [address] Clary Desai, [place] [address] Encounter for other general counseling and advice [...] 9:50 AM EDT Routine JOSY LAYTON [address] [facility] [place] [address] Roula Grullon PA [address] [facility] [address] [place], [facility]11 documented as of this encounter Visit Diagnoses Diagnosis Encounter for other general counseling and advice on procreation documented in this encounter Care Teams Wood Grinder Operator Relationship Specialty Start [place] [address] [place] [address] PCP - General Family Medicine 01/14/23 documented as of this encounter
--- OUTSIDE RECORDS SUMMARY | 2025-04-07 10:14 | XMS_ITS | Encounter Summary ---
Author Organization [facility] Address [address] [facility] [place] [address] Care Team Providers Care Milk House Worker Name Role Phone Suzanne Uriarte MD Primary Care Provider +[phone]- [phone] Encounter Details Date Type Department Care Team (Late st Contact Info) Description 04/04/2025 Clinisync Result Encounter NOMS External Department Unsolicited Lisa Chen DO [address] [facility] [address] Clary Desai, [facility]11 Social History Tobacco Use Types Packs/Day [...] AM EDT Routine NOMKale Desai OBDENI [address] [facility] [place] [address] Roula Grullon PA [address] [place] [address] documented as of this encounter Goals Goal Patient Goal Type Associated Problems Recent Progress Patient-Stated? Author Reminders Care Plan OB Reminders No Open Scheduling, Background documented as of this encounter Procedures Procedure Name Priority Date/Time Associated Diagnosis Comments US OB CERVICAL LENGTH 04/04/2025 9:12 AM EDT documented in this encounter Results * US OB CERVICAL LENGTH (04/04/2025 9:12 AM EDT) Anatomical Region Laterality Modality Other 04/04/2025 9:12 AM EDT Narrative 04/04/2025 9:14 [place] [address] Ultrasound Report Signed Patient: KAVYA HUNTER MR#: [id number] : 1995 Acct:[id number] Age/Sex: 29 / F ADM Date: 04/03/25 Loc: US Attending Dr: Lisa Chen D.O. Ordering Physician: Lisa Chen D.O. Date of Service: 04/03/25 Procedure(s): US OB cervical length Accession Number(s): [id number] cc: Lisa Chen D.O.; SUZANNE URIARTE M.D. [place] [id number] Patient Name: KAVYA HUNTER MRN: [id number]:[id number] date: 1995 Sex: F Assigned Patient Location: US Current Patient Location: Accession/Order Number: [id number] Exam Date: 04/03/2025 18:53 Report Date: 04/04/2025 [...] all 4 extremities were surveyed by the drill press set up operator and no abnormalities were reported. The stomach, [...] Pisano M.D. 04/04/2025 9:12 AM Dictation Location: [place] [address] Electronically authenticated by: [id number] Y Date: 04/04/2025 09:12 Dictated By: Cyndi Pisano M.D. Signed By: 04/04/25913 DD/ 1 TD/TT: Restaurant Area Manager: Procedure Note Radiology, Radiologist, MD - 04/04/2025 [place] [address] Ultrasound Report Signed Patient: KAVYA HUNTER [facility]#: [id number] : 1995Acct:[id number] Age/Sex: Date: 04/03/25 Loc: US Attending Dr: Lisa Chen D.O. Ordering Physician: Lisa Chen D.O. Date of Service: 04/03/25 Procedure(s): US OB cervical length Accession Number(s): [id number] cc: Lisa Chen D.O.; SUZANNE URIARTE M.D. The [place] [id number] Patient Name: KAVYA HUNTER MRN: [id number] date: 1995 Sex: F Assigned Patient Location: Current Patient Location: Accession/Order Number: [id number] Exam Date: 04/03/2025 18:53 Report Date: 04/04/2025 [...] andall 4 extremities were surveyed by the drill press set up operator and no abnormalities were reported. The stomach, [...] Pisano M.D. 04/04/2025 9:12 AM Dictation Location: [place] [address] Electronically authenticated by: [id number] Y Date: 9:12 Dictated By: Cyndi Pisano M.D. Signed By:04/04/2514 DD/ 1 TD/TT: Restaurant Area Manager: Lisa Chen DO [facility] Final Result documented in this encounter Visit Diagnoses Not on filedocumented in this encounter Additional Health Concerns Active Problems Noted Date Diagnosed Date OB Reminders 01/14/2023 documented as of this encounter Care Teams Milk House Worker Relationship Specialty Start [place] [address] [address] [place] [address] PCP - General Family Medicine 01/14/23 documented as of this encounter
--- OUTSIDE RECORDS SUMMARY | 2025-04-07 10:14 | XMS_ITS | Encounter Summary ---
Author Organization [facility] Address [address] [facility] [place] [address] Care Team Providers Care Yield Loss Inspector Name Role Phone Suzanne Uriarte MD Primary Care Provider +1- [phone] Encounter Details Date Type Department Care Team (Late st Contact Info) Description 07/11/2023 Clinisync Result Encounter NOMS External Department Unsolicited Lisa Chen DO [address] [facility] [address] Clary Desai, [facility]11 Social History Tobacco Use Types Packs/Day Years [...] AM EDT Routine [facility] [address] [facility] [place] [address] Roula Grullon PA [address] [facility] [address] [place], [facility]11 [phone] (work) documented as of this encounter Goals [...] AM EST Narrative 07/11/2023 12:20 AM EST [address] [address] Ultrasound Report Signed Patient: PRINCESS CANTU MR#: [id number] : 1995 Acct:[id number] Age/Sex: 27 / F ADM Date: 07/10/23 Loc: FBCO Attending Dr: Lisa Chen D.O. Ordering Physician: Lisa Chen D.O. Date of Service: 07/10/23 Procedure(s): US OB BPP w non-stress Accession Number(s): [id number] cc: Lisa Chen D.O.; Physician,Non-Staff Jake [address] [address] Patient Name: PRINCESS CANTU MRN: [facility]:[id number] date: 1995 Sex: F Assigned Patient Location: [facility] Current Patient Location: Accession/Order Number: [id number] Exam Date: 07/10/2023 14:31 Report Date: 07/11/2023 [...] Maier M.D. Signed By: 07/11/23 0020 DD/ 001 TD/TT: Tunnel Heading Supervisor: Procedure Note Radiology, Radiologist, MD - 07/11/2023 [place] [address] Ultrasound Report Signed Patient: PRINCESS CANTU AMR#: [id number] : 1995Acct:[id number] Age/Sex: 27 / FADM Date: 07/10/23 Loc: FBCO Attending Dr: Lisa Chen D.O. Ordering Physician: Lisa Chen D.O. Date of Service: 07/10/23 Procedure(s): US OB BPP w non-stress Accession Number(s): [id number] cc: Lisa Chen D.O.; Physician,Non-Staff Jake The [place] [id number] Patient Name: PRINCESS CANTU MRN: [id number] date: 1995 Sex: F Assigned Patient Location: [facility] Current Patient Location: Accession/Order Number: [id number] Exam Date: 07/10/2023 14:31 Report Date: 07/11/2023 [...] M.D. Signed By:07/11/23 0020 DD/ 0018 TD/TT: Tunnel Heading Supervisor: us Lisa April DO [facility] Final Result documented in this encounter Visit Diagnoses Not on filedocumented in this encounter Additional Health Concerns Active Problems Noted Date Diagnosed Date OB Reminders 01/14/2023 documented as of this encounter Care Teams Yield Loss Inspector Relationship Specialty Start [place] [address] [place], [place] [id number] PCP - General Family Medicine 01/14/23 documented as of this encounter
--- OUTSIDE RECORDS SUMMARY | 2025-04-07 10:14 | XMS_ITS | Encounter Summary ---
Author Organization [facility] Address [address] [place] [address] Phone Care Team Providers Care Reference Data Expert Name Role Phone Suzanne Uriarte MD Primary Care Provider + Encounter Details Date Type Department Care Team (Late st Contact Info) Description 02/27/2025 Scanned Document [facility] [address] [phone] [place] [address] [address] Social History Tobacco Use Types Packs/Day Years [...] Description 05/01/2025 10:00 AM EDT Office Visit [address] Chiu [address] [address] Nedra Deleon MD [address] [place] [address] Dr Chiu 2, [address] [address] documented as of this encounter Visit Diagnoses Not on filedocumented in this encounter Additional Health Concerns Assessment Noted Time A fall risk assessment has been complete d for the patient 05/03/2024 9:18 AM EDT documented as of this encounter Care Teams Reference Data Expert Relationship Specialty Start [place] [address] [place] [address] PCP - General 08/14/20 documented as of this encounter
--- OUTSIDE RECORDS SUMMARY | 2025-04-07 10:14 | XMS_ITS | Encounter Summary ---
Author Organization [facility] Address [address] [facility] [place] [address] Care Team Providers Care Industrial Psychologist Name Role Phone Suzanne Uriarte MD Primary Care Provider +1- [phone] Encounter Details Date Type Department Care Team (Late st Contact Info) Description 01/30/2025 Abstract [facility] L[facility]TON [address] [facility] [address] Willis Chen DO [address] [facility] [address] Clary Soni, [facility]11 Social History Tobacco Use Types Packs/Day [...] [address] [facility] [address] Roula Grullon PA [address] [facility] [address] [place], [facility]11 documented as of this encounter Goals Goal Patient Goal Type Associated Problems Recent Progress Patient-Stated? Author Reminders Care Plan OB Reminders No Open Scheduling, Background documented as of this encounter Visit Diagnoses Not on filedocumented in this encounter Additional Health Concerns Active Problems Noted Date Diagnosed Date OB Reminders 01/14/2023 documented as of this encounter Care Teams Industrial Psychologist Relationship Specialty Start [place] [address] [place] [address] PCP - General Family Medicine 01/14/23 documented as of this encounter
--- OUTSIDE RECORDS SUMMARY | 2025-04-07 10:14 | XMS_ITS | Encounter Summary ---
Author Organization [facility] Address [address] [facility] [place] [address] Care Team Providers Care Hooking Machine Operator Name Role Phone Suzanne Uriarte MD Primary Care Provider +1- [phone] Encounter Details Date Type Department Care Team (Latest Contact Info) Description 03/28/2025 Travel Social History Tobacco Use Types Packs/Day Years [...] Routine [facility] [address] [facility] [place] [address] Roula Grullon PA [address] [facility] [place] [address] documented as of this encounter Goals Goal Patient Goal Type Associated Problems Recent Progress Patient-Stated? Author Reminders Care Plan OB Reminders No Open Scheduling, Background documented as of this encounter Visit Diagnoses Not on filedocumented in this encounter Additional Health Concerns Active Problems Noted Date Diagnosed Date OB Reminders 01/14/2023 documented as of this encounter Care Teams Hooking Machine Operator Relationship Specialty Start [place] [address] [address] PCP - General Family Medicine 01/14/23 documented as of this encounter
--- OUTSIDE RECORDS SUMMARY | 2025-04-07 10:14 | XMS_ITS | Encounter Summary ---
Author Organization [facility] Address [address] [facility] [place] [address] Care Team Providers Care Skiver Hand Name Role Phone Suzanne Uriarte MD Primary Care Provider +1- [phone] Encounter Details Date Type Department Care Team (Late st Contact Info) Description 03/23/2025 Orders Only [facility] OBG[facility] [address] [facility] [place] [place] [address] Damaris Agosto MA Social History Tobacco Use Types Packs/Day Years [...] AM EDT Routine [facility]BG[facility] [address] [facility] [place] [place] [address] Roula Grullon PA [address] [facility] [address] [place], [place] [address] documented as of this encounter Goals Goal Patient Goal Type Associated Problems Recent Progress Patient-Stated? Author Reminders Care Plan OB Reminders No Open Scheduling, Background documented as of this encounter Procedures Procedure Name Priority Date/Time Associated Diagnosis Comments PAP SMEAR Routine 03/07/2025 12:00 AM EDT documented in this encounter Results * Pap Smear (03/07/2025 12:00 AM EDT) Swab Cervical swab / Unknown us R[facility]a [facility] ORDERABLES Final Re sult EX[facility]NAL LAB documented in this encounter Visit Diagnoses Not on filedocumented in this encounter Additional Health Concerns Active Problems Noted Date Diagnosed Date OB Reminders 01/14/2023 documented as of this encounter Care Teams Skiver Hand Relationship Specialty Start [place] [address] [place] [address] PCP - General Family Medicine 01/14/23 documented as of this encounter
--- OUTSIDE RECORDS SUMMARY | 2025-04-07 10:14 | XMS_ITS | Encounter Summary ---
Author Organization [facility] Address [address] [facility] [place] [address] Care Team Providers Care Biochemist Name Role Phone Suzanne Uriarte MD Primary Care Provider +1- [phone] Encounter Details Date Type Department Care Team (Late st Contact Info) Description 04/07/2023 Clinisync Result Encounter NOMS External Department Unsolicited Lisa Chen DO [address] [facility] [address] Clary Desai, [facility]11 Social History Tobacco Use Types Packs/Day [...] AM EDT Routine [facility]BG[facility] [address] [facility] [place] [address] Roula Grullon PA [address] [facility] [address] [place], [facility]11 (work) documented as of this encounter [...] PM EDT Narrative 04/07/2023 3:20 [place] [address] Ultrasound Report Signed Patient: PRINCESS CANTU MR#: [id number] : 1995 Acct:[id number] Age/Sex: 27 / F ADM Date: 04/06/23 Loc: US Attending Dr: Lisa Chen D.O. Ordering Physician: Lisa Chen D.O. Date of Service: 04/06/23 Procedure(s): US OB transvaginal Accession Number(s): [id number] cc: Lisa Chen D.O.; Physician,Non-Staff MCheryl The [address] [address] Patient Name: PRINCESS CANTU MRN: [facility]:[id number] date: 1995 Sex: F Assigned Patient Location: US Current Patient Location: US Accession/Order Number: [id number] Exam Date: 04/06/2023 20:36 Report Date: 04/07/2023 15:20 At the request of: LISA CHEN Procedure: US OB transvaginal EXAMINATION: US OB transvaginal HISTORY: SECOND TRIMESTER Z34.92 COMPARISON: Ultrasound OB anatomy 04/06/2023 US/US OB transvaginal IMPRESSION: Please see ultrasound OB anatomy 04/06/2023 report. Electronically authenticated by: CARLO MAIER Date: 04/07/2023 15:20 Dictated By: Carlo Maier M.D. Signed By: 04/07/231521 DD/ 19 TD/TT: Livestock Farmworker: Procedure Note Radiology, Radiologist, - 04/09/2023 [place] [address] Ultrasound Report Signed Patient: PRINCESS CANTU AMR#: [id number] : 1995Acct:[id number] Age/Sex: 27 / FADM Date: 04/06/23 Loc: US Attending Dr: Lisa Chen D.O. Ordering Physician: Lisa Chen D.O. Date of Service: 04/06/23 Procedure(s): US OB transvaginal Accession Number(s): [id number] cc: Lisa Chen D.O.; Physician,Non-Staff Jake The [place] [id number] Patient Name: PRINCESS CANTU MRN: [id number] date: 1995 Sex: F Assigned Patient Location: US Current Patient Location: US Accession/Order Number: [id number] Exam Date: 04/06/2023 20:36 Report Date: 04/07/2023 15:20 At the request of: LISA CHEN Procedure: US OB transvaginal EXAMINATION: US OB transvaginal HISTORY: SECOND TRIMESTER Z34.92 COMPARISON: Ultrasound OB anatomy 04/06/2023 US/US OB transvaginal IMPRESSION: Please see ultrasound OB anatomy 04/06/2023 report. Electronically authenticated by: CARLO MAIER Date: 04/07/2023 15:20 Dictated By: Carlo Maier M.D. Signed By:04/07/231521 DD/ 19 TD/TT: Livestock Farmworker: us Lisa Chen DO [facility] Final Result documented in this encounter Visit Diagnoses Not on filedocumented in this encounter Additional Health Concerns Active Problems Noted Date Diagnosed Date OB Reminders 01/14/2023 documented as of this encounter Care Teams Biochemist Relationship Specialty Start [place] [address] [place], [place] [address] PCP - General Family Medicine 01/14/23 documented as of this encounter
--- OUTSIDE RECORDS SUMMARY | 2025-04-07 10:14 | XMS_ITS | Encounter Summary ---
Author Organization [facility] Address [address] [place] [address] Phone Care Team Providers Care Crude Unit Operator Name Role Phone Suzanne Uriarte MD Primary Care Provider + Encounter Details Date Type Department Care Team (Late st Contact Info) Description 09/19/2024 Patient Risk Score ACO Care Management [address] [place] [address] Social History Tobacco Use Types [...] Description 05/01/2025 10:00 AM EDT Office Visit [address] Chiu [address] [address] Nedra Deleon MD [address] [place] [address] Dr Chiu 2, [address] [address] documented as of this encounter Visit Diagnoses Not on filedocumented in this encounter Additional Health Concerns Assessment Noted Time A fall risk assessment has been complete d for the patient 05/03/2024 9:18 AM EDT documented as of this encounter Care Teams Crude Unit Operator Relationship Specialty Start [place] [address] [address] PCP - General 08/14/20 documented as of this encounter
--- OUTSIDE RECORDS SUMMARY | 2025-04-07 10:14 | XMS_ITS | Encounter Summary ---
Author Organization [facility] Address [address] [facility] [place] [address] Care Team Providers Care Meat Supervisor Name Role Phone Suzanne Uriarte MD Primary Care Provider +1- [phone] Encounter Details Date Type Department Care Team (Late st Contact Info) Description 01/30/2025 Abstract [facility] [address] [facility] [place] [address] Willis Chen DO [address] [facility] [address] Clary Soni, [facility]11 Social History Tobacco Use Types Packs/Day Years [...] AM EDT Routine JOSY LAYTON [address] [facility] [place] [address] Roula Grullon PA [address] [facility] [address] [place], [facility] documented as of this encounter Goals Goal Patient Goal Type Associated Problems Recent Progress Patient-Stated? Author Reminders Care Plan OB Reminders No Open Scheduling, Background documented as of this encounter Visit Diagnoses Not on filedocumented in this encounter Additional Health Concerns Active Problems Noted Date Diagnosed Date OB Reminders 01/14/2023 documented as of this encounter Care Teams Meat Supervisor Relationship Specialty Start [place] [address] [place] [address] PCP - General Family Medicine 01/14/23 documented as of this encounter
--- OUTSIDE RECORDS SUMMARY | 2025-04-07 10:14 | XMS_ITS | Encounter Summary ---
Author Organization [facility] Address [address] [facility] [place] [address] Care Team Providers Care Celluloid Trimmer Name Role Phone Suzanne Uriarte MD Primary Care Provider +1- [phone] Encounter Details Date Type Department Care Team (Late st Contact Info) Description 07/11/2023 Clinisync Result Encounter NOMS External Department Unsolicited Lisa Chen DO [address] [facility] [address] Clary Desai, [facility]11 Social History Tobacco Use Types [...] AM EDT Routine [facility] Desai OBGYN [address] [facility] [place] [address] Roula Grullon PA [address] [facility] [address] [place], [facility]11 [phone] (work) documented as of this encounter Goals [...] AM EST Narrative 07/11/2023 12:50 [place] [address] Ultrasound Report Signed Patient: PRINCESS CANTU MR#: [id number] : 1995 Acct:[id number] Age/Sex: 27 / F ADM Date: 07/10/23 Loc: FBCO Attending Dr: Lisa Chen D.O. Ordering Physician: Lisa Chen D.O. Date of Service: 07/10/23 Procedure(s): US OB growth Accession Number(s): [id number] cc: Lisa Chen D.O.; Physician,Non-Staff M.No [address] [address] Patient Name: PRINCESS CANTU MRN: [id number] date: 1995 Sex: F Assigned Patient Location: [facility] Current Patient Location: [facility] Accession/Order Number: [id number] Exam Date: 07/10/2023 14:31 Report Date: 07/11/2023 [...] Maier M.D. Signed By: 07/11/2349 DD/ TD/TT: Pot Press Operator: Procedure Note Radiology, Radiologist, MD - 09/22/2023 [place] [address] Ultrasound Report Signed Patient: PRINCESS CANTU AMR#: [id number] : 1995Acct:[id number] Age/Sex: 27 / FADM Date: 07/10/23 Loc: [facility] Attending Dr: Lisa Chen D.O. Ordering Physician: Lisa Chen D.O. Date of Service: 07/10/23 Procedure(s): US OB growth Accession Number(s): [id number] cc: Lisa Chen D.O.; Physician,Non-Staff Jake The [place] [address] Patient Name: PRINCESS CANTU MRN: [id number] date: 1995 Sex: F Assigned Patient Location: [facility] Current Patient Location: [facility] Accession/Order Number: [id number] Exam Date: 07/10/2023 14:31 Report Date: 07/11/2023 [...] growth detailed above. Electronically authenticated by: CARLO MIAER Date: 07/11/2023 00:47 Dictated By: Carlo Maier M.D. Signed By:07/11/230 DD/ TD/TT: Pot Press Operator: us Lisa April DO [facility] Final Result documented in this encounter Visit Diagnoses Not on filedocumented in this encounter Additional Health Concerns Active Problems Noted Date Diagnosed Date OB Reminders 01/14/2023 documented as of this encounter Care Teams Celluloid Trimmer Relationship Specialty Start [place] [address] [place] [address] PCP - General Family Medicine 01/14/23 documented as of this encounter
--- OUTSIDE RECORDS SUMMARY | 2025-04-07 10:14 | XMS_ITS | Encounter Summary ---
Author Organization [facility] Address [address] [place] [address] Phone Care Team Providers Care Armature Bander Name Role Phone Suzanne Uriarte MD Primary Care Provider + Encounter Details Date Type Department Care Team (Late Contact Info) Description 10/20/2024 Patient Risk Score ACO Care Management [address] [place] [address] Social History Tobacco Use Types [...] Description 05/01/2025 10:00 AM EDT Office Visit [address] Chiu [address] [address] [place] [address] [facility] [address] Chiu [address], [place] [id number] documented as of this encounter Visit Diagnoses Not on filedocumented in this encounter Additional Health Concerns Assessment Noted Time A fall risk assessment has been complete d for the patient 05/03/2024 9:18 AM EDT documented as of this encounter Care Teams Armature Bander Relationship Specialty Start [place] [address] [facility] [place] [address] PCP - General 08/14/20 documented as of this encounter
--- OUTSIDE RECORDS SUMMARY | 2025-04-07 10:14 | XMS_ITS | Encounter Summary ---
Author Organization [facility] Address [address] [place] [address] Care Team Providers Care Tree Trimmer Helper Name Role Phone Suzanne Uriarte MD Primary Care Provider +1- [phone] Encounter Details Date Type Department Care Team (Late st Contact Info) Description 02/27/2025 Results Follow-Up JOSY Desai OBGYN [address] [place] [address] Apple Gallagher LPN [address] [place] [address] OB less than 14 weeks early Social History Tobacco Use Types Packs/Day Years [...] PM EDT documented as of this encounter Miscellaneous Notes * Result Encounter Note - Apple Gallagher LPN - 02/27/2025 11:44 AM EDT Pt notified and transferred upfront to schedule documented in this encounter Plan of Treatment Upcoming Encounters Date Type Department Care Team (Late st Contact Info) Description 04/30/2025 9:50 AM EDT Routine [facility] G[facility]elle OBGYN [address] [facility] [place] [address] Roula Grullon PA [address] [facility] [place] [address] documented as of this encounter Goals Goal Patient Goal Type Associated Problems Recent Progress Patient-Stated? Author Reminders Care Plan OB Reminders No Open Scheduling, Background documented as of this encounter Visit Diagnoses Not on filedocumented in this encounter Additional Health Concerns Active Problems Noted Date Diagnosed Date OB Reminders 01/14/2023 documented as of this encounter Care Teams Tree Trimmer Helper Relationship Specialty Start [place] [address] [address] PCP - General Family Medicine 01/14/23 documented as of this encounter
--- OUTSIDE RECORDS SUMMARY | 2025-04-07 10:14 | XMS_ITS | Encounter Summary ---
Author Organization [facility] Address [address] [place] [address] Phone Care Team Providers Care Loan Representative Name Role Phone Suzanne Uriarte MD Primary Care Provider + Suzanne Uriarte MD Unavailable [phone] Suzanne Uriarte MD Unavailable [phone] Encounter Details Date Type Department Care Team (Late st Contact Info) Description 10/21/2023 Patient Risk Score ACO Care Management [address] [place] [address] Social History Tobacco Use Types [...] Description 05/01/2025 10:00 AM EDT Office Visit [address] [place] [address] Nedra Deleon MD [address] [place] [address] Dr [address], [address] [place] [address] documented as of this encounter Visit Diagnoses Not on filedocumented in this encounter Care Teams Loan Representative Relationship Specialty Start [place] [address] [address] PCP - General 08/14/20 [place] [address] [place], [place] [id number] PCP - MMO ACO PCP 07/19/23 12/17/23 [place] [address] [address] PCP - MMO ACO PCP 04/18/24 07/18/24 documented as of this encounter
--- OUTSIDE RECORDS SUMMARY | 2025-04-07 10:14 | XMS_ITS | Clinical Summary ---
Author Organization [facility] Address [address] [place] [address] Phone Care Team Providers Care Django Developer Name Role Phone Suzanne Uriarte MD Primary Care Provider + Allergies No known active allergies Medications lamoTRIgine (LaMICtal) 100 mg tabletIndication s:Unspecified convulsions (Multi) TAKE 1 TABLET BY MOUTH TWICE A DAY 60 tablet 11 5 Active labetalol (Normodyne) 300 mg tabletIndication s:Benign essential hypertension TAKE 1 TABLET (300 MG) BY MOUTH 2 TIMES A DAY. 60 tablet 5 Active labetalol (Normodyne) 300 mg tabletIndication s:Benign essential hypertension Take 1 tablet (300 mg) by mouth 2 times a day. 60 tablet 5 5 025 Discontinued Active Problems Problem Noted Date [...] Encounters Date Type Department Care Team Description 03/21/2025 Refill [facility] [address] [address] Suzanne Uriarte MD Benign essential hypertension 02/27/2025 Scanned Document [facility] [address] [phone] Suzanne Uriarte MD 02/07/2025 Orders Only [facility] Primary Care [address] [phone] Suzanne Uriarte MD 02/06/2025 Travel 01/09/2025 Refill [facility] [address] [facility] [address] [place] [address] Nedra Deleon MD Unspecified convulsions (Multi) from [...] Hypertension Father Bryn Cancer Maternal Grandfather Michael Dementia Maternal Grandmother 1 Ariadna Dementia Maternal Grandmother 2 Ariadna Cancer Paternal Grandmother Unknown Relation Name Status Comments Father Bryn Alive Maternal Grandfather Michael Alive Maternal Grandmother 1 Ariadna Alive Maternal Grandmother 2 Ariadna Alive Paternal Grandmother Unknown Alive Social History Tobacco Use Types Packs/Day Years Used Date Smoking Tobacco: Never Passive Smoke Exposure: Never Smokeless Tobacco: Never Tobacco Cessation:Counseling Given: Not Answered Alcohol Use Standard Drinks/Week Comments Not Currently [...] 05/01/2025 10:00 AM EDT Office Visit [address] [place] [address] [place] [address] [facility] [address], [address] [phone] Health Maintenance Due Date Last Done Comments HIV Screening 1995 Hepatitis C Screening 10/02/2011 HPV/Cotest 2014 HPV Vaccines (1 - 3-dose standard series) 2020 Yearly Adult Physical 05/14/2024 05/13/2023 , 07/31/2022, 07/31/2022, Additional history exists COVID-19 Vaccine ( season) 2025 05/27/2023 Influenza Vaccine (#1) 2025 , 04/21/2022, 04/18/2021, Additional history exists Cervical Cancer Screening 03/10/2026 Pap Smear 03/10/2026 03/10/2023, 02/17, 07/02/2020 Lipid Panel 09/12/2029 09/12/2024 DTaP/Tdap/Td Vaccines (9 - Td or Tdap) 06/08/2033 06/08/2023, 02/16/2018, 03/02/2008, Additional history exists Zoster Vaccines (1 of 2) 10/02/2043 HIB Vaccines Completed 03/12/1999, 12/1994, 04/16/1994, Additional history exists IPV Vaccines [...] Completed 11/01/2023, 06/18/1994, 01/08/1994, Additional history exists Hepatitis A Vaccines Aged Out No long er eligible based on patient's age to complete this topic Rotavirus Vaccines Aged Out No longer eligible based on patient's age to complete this topic Procedures Procedure Name Priority Date/Time Associated Diagnosis Comments US OB TRANSVAGINAL Routine 02/07/2025 2 :28 PM EDT LIPID PANEL Routine 09/12/2024 1:43 PM EST Well adult health check from Last 3 Months or Most Recently Relevant to Health Maintenance Results * US OB transvaginal (02/07/2025 2:28 PM EDT) Anatomical Region Laterality Modality Body Ultrasound us Suzanne Uriarte MD IMG OB US PROCEDURES Fin al Result * Lipid Panel (09/12/2024 1:43 PM EST) CHOLESTEROL, TOTAL 167 <200 mg/dL [facility] HDL CHOLESTEROL 52 > OR = 50 mg/dL [facility] TRIGLYCERIDES 103 <150 mg/dL [facility] LDL-CHOLESTEROL 95 mg/dL (calc) [facility] Comment: Reference range: <100 Desirable range <100 mg/dL for primary prevention; <70 mg/dL for patients with CHD or diabetic patients with > or = 2 CHD risk factors. LDL-C is now calculated using the Tres-Shaffer calculation, which is a validated novel method providing better accuracy than the Friedewald equation in the estimation of LDL-C. Tres SS et al. STEPHANIE. 2013;310(19): 6926-4084 (http://education.Offerial/faq/AGX430) CHOL/HDLC RATIO 3.2 <5.0 (calc) [facility] NON HDL CHOLESTEROL 115 <130 mg/dL (calc) [facility] Comment: For patients with diabetes plus 1 major ASCVD risk factor, treating to a non-HDL-C goal of <100 mg/dL (LDL-C of <70 mg/dL) is considered a therapeutic option. Blood Venous blood specimen / Unknown 09/12/2024 1:43 PM EST 09/12/2024 1:44 PM EST Narrative [facility] - 09/13/2024 6:42 AM EST FASTING:YES FASTING: YES us Suzanne Uriarte MD LAB BLOOD ORDERABLES [facility] al Result [facility] [address] [place] [address] from Last 3 Months or Most Recently Relevant to Health Maintenance Insurance Care Teams Django Developer Relationship Specialty Start [place] [address] [place] [address] PCP - General 08/14/20
--- OUTSIDE RECORDS SUMMARY | 2025-04-07 10:14 | XMS_ITS | Encounter Summary ---
Author Organization [facility] Address [address] [facility] [place] [address] Care Team Providers Care Electricity Trader Name Role Phone Suzanne Uriarte MD Primary Care Provider +1- [phone] Encounter Details Date Type Department Care Team (Late st Contact Info) Description 05/04/2023 Clinisync Result Encounter [facility] External Department Unsolicited Lisa Chen DO [address] [facility] [address] [place], [facility] Social History Tobacco Use Types [...] [address] [place] [phone] Roula Grullon PA [address] [place], [facility]11 documented as of this encounter Goals [...] AM EDT Narrative 05/04/2023 7:10 [place] [address] Ultrasound Report Signed Patient: PRINCESS CANTU MR#: [id number] : 1995 Acct:[id number] Age/Sex: 27 / F ADM Date: 05/03/23 Loc: US Attending Dr: Lisa Chen D.O. Ordering Physician: Lisa Chen D.O. Date of Service: 05/03/23 Procedure(s): US OB follow up Accession Number(s): [id number] cc: Lisa Chen D.O.; Physician,Non-Staff M.DLima The [address] [address] Patient Name: PRINCESS CANTU MRN: [facility]:[id number] date: 1995 Sex: F Assigned Patient Location: US Current Patient Location: Accession/Order Number: [id number] Exam Date: 05/03/2023 19:00 Report Date: 05/04/2023 [...] M.D. Signed By: 05/04/23711 DD/ 9 TD/TT: Morgue Technician: Procedure Note Radiology, Radiologist, MD - 05/04/2023 [place] [address] Ultrasound Report Signed Patient: PRINCESS CANTU AMR#: [id number] : 1995Acct:[id number] Age/Sex: 27 / FADM Date: 05/03/23 Loc: US Attending Dr: Lisa Chen D.O. Ordering Physician: Lisa Chen D.O. Date of Service: 05/03/23 Procedure(s): US OB follow up Accession Number(s): [id number] cc: Lisa Chen D.O.; Physician,Non-Staff Jake The [address] [address] Patient Name: PRINCESS CANTU MRN: [id number] date: 1995 Sex: F Assigned Patient Location: US Current Patient Location: Accession/Order Number: [id number] Exam Date: 05/03/2023 19:00 Report Date: 05/04/2023 [...] River M.D. Signed By:05/04/23711 DD/ 9 TD/TT: Morgue Technician: us Lisa April DO IMG XR PROCEDURES Final Result documented in this encounter Visit Diagnoses Not on filedocumented in this encounter Additional Health Concerns Active Problems Noted Date Diagnosed Date OB Reminders 01/14/2023 documented as of this encounter Care Teams Electricity Trader Relationship Specialty Start [place] [address] [place] [address] PCP - General Family Medicine 01/14/23 documented as of this encounter
--- OUTSIDE RECORDS SUMMARY | 2025-04-07 10:14 | XMS_ITS | Encounter Summary ---
Author Organization [facility] Address [address] [place] [address] Phone Care Team Providers Care Industrial Retrofit Designer Name Role Phone Suzanne Uriarte MD Primary Care Provider + Suzanne Uriarte MD Unavailable Suzanne Uriarte MD Unavailable Suzanne Uriarte MD Unavailable Encounter Details Date Type Department Care Team (Late st Contact Info) Description 04/20/2023 Patient Risk Score [facility] Care Management [address] [place] [address] Social History Tobacco Use Types [...] Description 05/01/2025 10:00 AM EDT Office Visit [address] [place] [address] Nedra Deleon MD [address] [place] [address] Dr [address], [address] [place], [place] [phone] documented as of this encounter Visit Diagnoses Not on filedocumented in this encounter Care Teams Industrial Retrofit Designer Relationship Specialty Start [place] [address] [place] [address] PCP - General 08/14/20 [place] [address] [place] [address] PCP - MMO ACO PCP 02/16/23 05/18/23 [place] [address] [place] [address] PCP - MMO ACO PCP 07/19/23 12/17/23 [place] [address] [place] [address] PCP - MMO ACO PCP 04/18/24 07/18/24 documented as of this encounter
--- OUTSIDE RECORDS SUMMARY | 2025-04-07 10:14 | XMS_ITS | Encounter Summary ---
Author Organization [facility] Address [address] [facility] [place] [address] Care Team Providers Care Regional Intermodal Truck Driver Name Role Phone Suzanne Uriarte MD Primary Care Provider +1- [phone] Encounter Details Date Type Department Care Team (Late st Contact Info) Description 06/17/2023 Clinisync Result Encounter NOMS External Department Unsolicited Lisa Chen DO [address] [facility] [address]ary [place], [facility]11 Social History Tobacco Use Types Packs/Day Years [...] AM EDT Routine [facility] [address] [facility] [place] [phone] Roula Grullon PA [address] [facility] [place], [facility]11 [phone] (work) documented as of this encounter Goals [...] PM EST Narrative 06/17/2023 3:10 [place] [address] Ultrasound Report Signed Patient: PRINCESS CANTU MR#: [id number] : 1995 Acct:[id number] Age/Sex: 27 / F ADM Date: 06/17/23 Loc: US Attending Dr: Lisa Chen D.O. Ordering Physician: Lisa Chen D.O. Date of Service: 06/17/23 Procedure(s): US OB growth Accession Number(s): [id number] cc: Lisa Chen D.O.; Physician,Non-Staff M.DLima The [address] [address] Patient Name: PRINCESS CANTU MRN: [id number] date: 1995 Sex: F Assigned Patient Location: US Current Patient Location: US Accession/Order Number: [id number] Exam Date: 06/17/2023 08:05 Report Date: 06/17/2023 [...] M.D. Signed By: 06/17/231512 DD/ 09 TD/TT: Butter Maker: Procedure Note Radiology, Radiologist, MD - 06/17/2023 [place] [address] Ultrasound Report Signed Patient: PRINCESS CANTU AMR#: [id number] : 1995Acct:[id number] Age/Sex: 27 FADM Date: 06/17/23 Loc: US Attending Dr: Lisa Chen D.O. Ordering Physician: Lisa Chen D.O. Date of Service: 06/17/23 Procedure(s): US OB growth Accession Number(s): [id number] cc: Lias Chen D.O.; Physician,Non-Staff Jake The [place] [address] Patient Name: PRINCESS CANTU MRN: [id number] date: 1995 Sex: F Assigned Patient Location: US Current Patient Location: US Accession/Order Number: [id number] Exam Date: 06/17/2023 08:05 Report Date: 06/17/2023 [...] Maier M.D. Signed By:06/17/231512 DD/ 09 TD/TT: Butter Maker: us Lisa April DO [facility] Final Result documented in this encounter Visit Diagnoses Not on filedocumented in this encounter Additional Health Concerns Active Problems Noted Date Diagnosed Date OB Reminders 01/14/2023 documented as of this encounter Care Teams Regional Intermodal Truck Driver Relationship Specialty Start [place] [address] [place] [address] PCP - General Family Medicine 01/14/23 documented as of this encounter
--- OUTSIDE RECORDS SUMMARY | 2025-04-07 10:14 | XMS_ITS | Encounter Summary ---
Author Organization [facility] Address [address] [place] [address] Phone Care Team Providers Care Bottom Liner Name Role Phone Suzanne Uriarte MD Primary Care Provider + Suzanne Uriarte MD Unavailable [phone] Suzanne Uriarte MD Unavailable [phone] Encounter Details Date Type Department Care Team (Late st Contact Info) Description 11/20/2023 Patient Risk Score ACO Care Management [address] [place] [address] Social History Tobacco Use Types [...] 05/01/2025 10:00 AM EDT Office Visit [address] [place] [address] Nedra Deleon MD [address] [place] [address] [address], [address] [place] [address] documented as of this encounter Visit Diagnoses Not on filedocumented in this encounter Care Teams Bottom Liner Relationship Specialty Start [place] [address] [address] PCP - General 08/14/20 [place] [address] [place], [place] [address] PCP - MMO ACO PCP 07/19/23 12/17/23 [place] [address] [address] PCP - MMO ACO PCP 04/18/24 07/18/24 documented as of this encounter
--- OUTSIDE RECORDS SUMMARY | 2025-04-07 10:14 | XMS_ITS | Encounter Summary ---
Author Organization [facility] Address [address] [place] [address] Phone Care Team Providers Care Static Balancer Name Role Phone Suzanne Uriarte MD Primary Care Provider + Suzanne Uriarte MD Unavailable [phone] Encounter Details Date Type Department Care Team (Late Contact Info) Description 06/21/2024 Patient Risk Score [facility] Care Management [address] [place] [address] Social History Tobacco Use Types [...] Description 05/01/2025 10:00 AM EDT Office Visit [address] [phone] Nedra Deleon MD [address] [place] [address] Dr [address], [address] [address] documented as of this encounter Visit Diagnoses Not on filedocumented in this encounter Additional Health Concerns Assessment Noted Time A fall risk assessment has been complete d for the patient 05/03/2024 9:18 AM EDT documented as of this encounter Care Teams Static Balancer Relationship Specialty Start [place] [address] [address] PCP - General 08/14/20 [place] [address] [place] [address] PCP - MMO ACO PCP 04/18/24 07/18/24 documented as of this encounter
--- OUTSIDE RECORDS SUMMARY | 2025-04-07 10:14 | XMS_ITS | Encounter Summary ---
Author Organization [facility] Address [address] [facility] [place] [address] Care Team Providers Care Operating Room Specialist Name Role Phone Suzanne Uriarte MD Primary Care Provider [phone]- [phone] Encounter Details Date Type Department Care Team (Late st Contact Info) Description 04/07/2023 Clinisync Result Encounter NOMS External Department Unsolicited Lisa Chen DO [address] [facility] [address] [place], [facility]11 Social History Tobacco Use Types Packs/Day [...] AM EDT Routine [facility] [address] [facility] [place] [phone] Roula Grullon PA [address] [facility] [address] [place], [facility]11 documented as of this encounter Goals [...] PM EDT Narrative 04/07/2023 3:19 [place] [address] Ultrasound Report Signed Patient: PRINCESS CANTU MR#: [id number] : 1995 Acct:[id number] Age/Sex: 27 / F ADM Date: 04/06/23 Loc: US Attending Dr: Lisa Chen D.O. Ordering Physician: Lisa Chen D.O. Date of Service: 04/06/23 Procedure(s): US OB anatomy Accession Number(s): [id number] cc: Lisa Chen D.O.; Physician,Non-Staff M.DLima The [address] [address] Patient Name: PRINCESS CANTU MRN: [id number] date: 1995 Sex: F Assigned Patient Location: US Current Patient Location: Accession/Order Number: [id number] Exam Date: 04/06/2023 20:36 Report Date: 04/07/2023 [...] Signed By: 04/07/23 1521 DD/ 1519 TD/TT: Chro: Procedure Note Radiology, Radiologist, MD - 04/09/2023 [place] [address] Ultrasound Report Signed Patient: PRINCESS CANTU AMR#: [id number] : 1995Acct:[id number] Age/Sex: 27 / FADM Date: 04/06/23 Loc: US Attending Dr: Lisa Chen D.O. Ordering Physician: Lisa Chen D.O. Date of Service: 04/06/23 Procedure(s): US OB anatomy Accession Number(s): [id number] cc: Lisa Chen D.O.; Physician,Non-Staff Jake [address] [address] Patient Name: PRINCESS CANTU MRN: [id number] date: 1995 Sex: F Assigned Patient Location: US Current Patient Location: Accession/Order Number: [id number] Exam Date: 04/06/2023 20:36 Report Date: 04/07/2023 [...] M.D. Signed By:04/07/23 1521 DD/ 1519 TD/TT: Chro: us Lisa Chen DO [facility] Final Result documented in this encounter Visit Diagnoses Not on filedocumented in this encounter Additional Health Concerns Active Problems Noted Date Diagnosed Date OB Reminders 01/14/2023 documented as of this encounter Care Teams Operating Room Specialist Relationship Specialty Start [place] [address] [address] PCP - General Family Medicine 01/14/23 documented as of this encounter
== END 2025-04-07 10:07 | disposition home or self-care (01) ==
PROVIDERS: PCP Family Medicine; Visit Provider Physician Assistant
DX: Z34.92 Encounter for supervision of normal pregnancy, unspecified, second trimester (principal); Z3A.16 16 weeks gestation of pregnancy
CPT/HCPCS: 36415; 82105

== ENCOUNTER 2025-05-19 11:22 | Outpatient (OUT) | payer BC, SELFPAY ==
--- OUTSIDE RECORDS SUMMARY | 2024-03-16 08:18 | XMS_ITS | Continuity of Care Document ---
Author Organization [facility] Address [address] [place] [address] Phone Care Team Providers Care Application Software Developer Name Role Phone Jason MSN, LUTE PACKER OR APPLIER-C, PM, Emily Unavailable Unavailable Allergies, Adverse Reactions, [...] BP >=130-139MM HG MED LIST DOCD IN [facility] RVW MEDS BY RX/DR IN [facility] PT TOBACCO USE DONE VD TLK [...] 130 MM HG MED LIST DOCD IN [facility] RVW MEDS BY RX/DR IN [facility] TOBACCO NON-USER Pt inelig neg scrn [...] Diagnoses Date Provider Providers Copied on Encounter [facility], [address] [place] [address], [place], [place], [id number] , [place] tel:[phone] [facility] No Information 4 Gomez Emily. [address] [place], [address], [place]. tel: [phone] OFFICE/OUTPA TIENT VISIT, EST [facility], [address], [place], [id number] , [place] tel: [phone] EHOVE est care (chief complaint)La b draw (chief complaint) Need for hepatitis C screening testScreening for diabetes mellitusScreening for endocrine disorderScreening for lipid disordersScreening for HIV (human immunodeficiency virus)Body mass index [BMI] 28.0-28.9, adultEssential hypertensionHistory of seizure 4 Jason Diaz. [address] [place], [address], [place]. tel: [phone] [facility], [address] [place] [address], [id number] , [place] tel: [phone] [facility] Hep B Titer (chief complaint) Encounter for antibody response examination 4 Monet Chen. [address], [place], [id number] , [place]. tel: [phone] [facility], [address] [place] [address], [id number] , [place] tel: [phone] [facility] No Information 4 Monet Chen. [address], [place], [id number] , [place]. tel: [phone] [facility], [address] [place] [address], [id number] , [place] tel: [phone] [facility] Encounter for screening for respiratory tuberculosis 4 Monet Chen. [address] [place] [address], [id number] , [place]. tel: [phone] [facility], [address] [place] [address], [id number] , [place] tel: [phone] [facility] No Information 3 Monet Chen. [address], [place], [id number] , [place]. tel: [phone] [facility], [address] [place] [address], [id number] , [place] tel: [phone] [facility] No Information 3 Monet Chen. [address], [place], [id number] , [place]. tel: [phone] PREV VISIT, EST, AGE 18-39 [facility], [address] [place] [address], [id number] , [place] tel: [phone] [facility] Pillars Appointment (chief complaint) Body mass index [BMI] 31.0-31.9, adultEncntr for general adult medical exam w/o abnormal findings 3 Bernardo Montenegro. [address] [place] [address], [id number] , [place]. tel: [phone] [facility], [address] [place] [address], [id number] , [place] tel: [phone] [facility] No Information 3 Monet Chen. [address] [place] [address], [id number] , [place]. tel: [phone] OFFICE/OUTPA TIENT VISIT, [facility], [address] [place] [address], [id number] , [place] tel: [phone] [facility] [place] Problem Visit (chief complaint) Morning sicknessBody mass index [BMI]30.0-30.9, adult Apr- 3 Bernardo Montenegro. [address] [place] [address], [id number] , [place]. tel: [phone] [facility], [address] [place] [address], [id number] , [place] tel: [phone] COVID ECHGermán Encounter For Screening For Covid-19 3 Monet Chen. [address] [place] [address], [id number] , [place]. tel: [phone] [facility], [address], [place], [id number] , [place] tel: [phone] [facility] Lab draw (chief complaint) Encounter for antibody response examination Mar- 3 Monet Chen. [address], [place], [id number] , [place]. tel: [phone] [facility], [address], [place], [id number] , [place] tel: [phone] [facility] No Information 3 Monet Chen. [address], [place], [id number] , [place]. tel: [phone] [facility], [address] [place] [address], [id number] , [place] tel: [phone] [facility] Encounter for screening for respiratory tuberculosis 3 Monet Chen. [address], [place], [id number] , [place]. tel: [phone] [facility], [address] [place] [address], [id number] , [place] tel: [phone] COVID [facility] Encounter For Screening For Covid-19 2 Monet Chen. [address] [place] [address], [id number] , [place]. 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 [address] [place], [address], [place]. tel: [phone] [facility], [address] [place] [address], [id number] , [place] tel: [phone] [facility] No Information 2 Monet Chen. [address], [place], [id number] , [place]. tel: [phone] OFFICE/OUTPA TIENT VISIT, EST [facility], [address], [place], [id number] , [place] tel: [phone] [facility] [place] [place] Bug Bite (chief complaint) Insect bite without infectionSkin rash 2 Jose Antonio DELEON-Darlene Ross. [address] [place], [address], [place]. tel: [phone] OFFICE/OUTPA TIENT VISIT, EST [facility], [address] [place] [address], [id number] , [place] tel: [phone] [facility] [place] otalgia (chief complaint) Body mass index [BMI] 32.0-32.9, adultOtalgia of left earLeft acute otitis media 2 Jose Antonio DELEON-Darlene Ross. [address] [place], [address], [place]. tel: [phone] PREV VISIT, EST, AGE 18-39 [facility], [address] [place] [address], [id number] , [place] tel: [phone] [facility] (chief complaint) Encntr for general adult medical exam w/o abnormal findingsEssential hypertensionCough, persistent 2 Mik Green. [address] [place] [address], [address], [place]. tel: [phone] [facility], [address] [place] [address], [id number] , [place] tel:[phone] COVID [facility] Encounter For Screening For Covid-19 2 Monet Chen. [address] [place] [address], [id number] , [place]. tel: [phone] [facility], [address] [place] [address], [id number] , [place] tel:[phone] [facility] No Information 1 Monet Chen. [address], [place], [id number] , [place]. tel: [phone] [facility], [address], [place], [id number] , [place] tel: [phone] [facility] No Information 1 Monet Chen. [address], [place], [id number] , [place]. tel: [phone] PREV VISIT, NEW, AGE 18-39 [facility], [address], [place], [id number] , [place] tel: [phone] [facility] Pillars (chief complaint)Crystal b draw (chief complaint) Encntr for general adult medical exam w/o abnormal findingsHistory of seizure Mar-3 1 Mik Green. [address] [place] [address], [address], [place]. tel: [phone] [facility], [address] [place] [address], [id number] , [place] tel: [phone] [facility] No Information 1 Monet Chen. [address] [place] [address], [id number] , [place]. tel: [phone] [facility], [address] [place] [address], [id number] , [place] tel: [phone] [facility] No Information 1 Monet Chen. [address], [place], [id number] , [place]. tel: [phone] [facility], [address] [place] [address], [id number] , [place] tel: [phone] [facility] Encounter for screening for other viral disease 1 Monet Chen. [address] [place] [address], [id number] , [place]. tel: [phone] [facility], [address] [place] [address], [id number] , [place] tel: [phone] [facility] No Information 1 Monet Chen. [address], [place], [id number] , [place]. tel: [phone] Referring Provider: [facility], [address], [place], [id number] , [place] tel: [phone] [facility] Encounter for screening for respiratory tuberculosis 0 Monet Chen. [address], [place], [id number] , [place]. tel: [phone] Family History Family Member Type Diagnosis Age [...] democrat ID Authoriza tiluis(s) [employer] CI [id number] [facility] [place] CI [id number] [facility] [place] CI [id number] [facility] [place] CI [id number] [facility] [place] CI [id number] [facility] [place] CI [id number] [facility] [place] CI [id number] Social History Type Description Quantity Date Captured [...] due Goal Urinalysis. Due on due Goal Tobacco cessation counseling completed Goal Lifestyle education regardin g diet completed Goal Tobacco cessation counseling completed Goal Hep A. Due on du e Goal Tdap due Goal Unhealthy drug use screening . Due on due Goal Hepatitis C screening. Due o n due Goal Influenza vaccine. Due on Ma due Goal PRAPARE ASSESSMENT. Due on M due Goal Depression screening. Due on due Goal RLP. Due on due Goal ECG. Due on due Goal Urinalysis. Due on due Goal HPV. Due on due Goal Lipid panel. Due on due Goal Tdap Vaccine. Due on 2032 due Goal Hepatitis C screening. Due o n due Goal PRAPARE ASSESSMENT. Due on A due Goal Urinalysis. Due on due Goal ECG. Due on due Goal Tdap due Goal Unhealthy drug use screening . Due on due Goal Influenza vaccine. Due on Ap due Goal RLP. Due on due Goal Depression screening. Due on due Goal HPV. Due on due Goal Tdap Vaccine. Due on 2032 due Goal Lipid panel. Due on due Goal RLP. Due on due Goal HPV. Due on due Goal Unhealthy drug use screening . Due on due Goal PRAPARE ASSESSMENT. Due on A due Goal Influenza vaccine. Due on Ap due Goal Lipid panel. Due on due Goal Hep A. Due on du e Goal Tdap due Goal Tdap Vaccine. Due on 2032 due Goal Depression screening. Due on due Goal Hepatitis C screening. [...] due Goal Tdap. Due on due Goal PAP. Due on [...] Hep A. Due on du e Goal RLP. Due on due Goal Depression [...] Lifestyle education regardin g diet completed Goal Influenza vaccine. Due on Oc due Goal Tdap. Due on due Goal ECG. Due on due Goal Urinalysis. Due on due Goal RLP. Due on due Goal Hepatitis [...] PRAPARE ASSESSMENT. Due on S due Goal ECG. Due on due Goal Urinalysis. Due on due Goal Influenza vaccine. Due on due Goal PAP. Due on due Goal Lipid panel. Due on due Goal Hep A. Due on du e Goal Tdap Vaccine. Due on 2022 due Goal RLP. Due on due Goal Tdap. Due on due Goal PRAPARE ASSESSMENT. Due on M due Goal Depression screening. Due on due Goal Depression screening. Due [...] on due Goal Influenza vaccine. Due on Ma due Goal PAP. Due on due Goal PAP. Due on due Goal PRAPARE ASSESSMENT. Due on N due Goal Tdap. Due on due Goal Depression screening. Due on due Goal Influenza vaccine. Due on No due Goal RLP. Due on due Goal [...] due Goal Urinalysis. Due on due Goal Dietary management education [...] x1 RA C. 2x2 and bandage applied. JANNET Concepcion est care Pt is here for [...] was switched from Lisinopril to Labetolol by Soft Top Installer (Dr. Sheppard) when she was about 4 [...] drawn tomorrow.Women's Health: ObviouslyFlu: Already has it//Josiah RNOB/ENTERTAINMENT USHER for - Dr. Bonilla in [facility] concerns today. Pillars labs scheduled for [...] it itches. No other issues or concernsTGrodi PAIN COORDINATOR I have reviewed all above information and agree. Was driving with top down on vehicle was and either bit by a bug or stung by a bee to left upper inner thigh. Was wearing shorts at the time. NKA that pt is aware of. Happened yesterday. No fever/chills. Area getting larger, warmer and redder. Was sent to office by supervisor dry cleaning to assess if ATB are needed. No [...] needs today. Kamilla FLETCHER pillars Here for [facility] s exam to complete employee pillars and to establish care. Last seen PCP from [place] in September 2021. History of new onset [...] results. Vision-no concernsDental-last cleaning [facility], Aug 2021ANGEL Covington Sep-30-2021 Lab draw Labs drawn from left AC x 1 attempt, tolerated well, pressure dressing applied to area. Fredi Bettencourt RN Pillars Patient presents for an A pillars physical exam, pt has established dental and optometry. No other complaints. Juana noted. Has established family provider, Suzanne Uriarte. Next appt is in May. [facility] of [facility]. Recent history of sudden onset seizure approx 1 year ago while sleeping. Testing completed (MRI, EEG) with Nedra Mccray with [facility]. Taking medications as prescribed. No recent seizure activity. Denies any concerns at this time. Vision-Recently prescribed new glassesDental- few yearsWTuneenergy- appt yesterdayJMik, CASKET ASSEMBLER Functional Status Date Functional Assessmen t No [...]
--- OUTSIDE RECORDS SUMMARY | 2025-04-30 09:50 | XMS_ITS | Encounter Summary ---
Author Organization [facility] Address [address] [place] [address] Care Team Providers Care Vacuum Drum Drier Operator Name Role Phone Suzanne Uriarte MD Primary Care Provider [phone] Reason for Visit * ReasonCommentsRoutine Visit Encounter Details DateTypeDepartmentCare Team (Latest Contact Info)Sizrczswszu00/13/2025 9:50 AM EDTRoutine [facility] [address] [place] [address] Roula Grullon PA [address] [facility] [address] [place], [place] [address] Second trimester ([facility]); 24 weeks gestation of ([facility]); Hypertension, unspecified type; Seizure ([facility]); Diabetes mellitus screening Social History Tobacco UseTypesPacks/DayYears UsedDateSmoking Tobacco: Never Assessed Estimated Date of DarhimpwPyutacucYig50/02/2026ased on last menstrual period of 11/13/2024Sex and Gender InformationValueDate RecordedSex Assigned at BirthFemale 12/21/2022 8:22 PM EDTLegal AfbZzslsc65/15/2023 11:40 PM EDTGender Identity Cytpgs4612/21/2022 8:22 PM EDTSexual AisdtppwayiEwvglgoi61/05/2023 8:22 PM EDT documented as of this encounter Last Filed Vital Signs Vital SignReadingTime TakenCommentsBlood Dvcacgdd734/7204/30/2025 10:07 AM EDT Pulse--Temperature--Respiratory Rate--Oxygen Saturation--Inhaled Oxygen Concentration--Fftmvr20 kg (183 lb)04/30/2025 10:07 AM EDTHeight--Body Mass Index27.02011/16/2022 12:00 PM EDTdocumented in this encounter Progress Notes * CHRISTIANA Mills - 04/30/2025 9:50 AM EDT Reason for Appointment: Patient ID: Kavya Guerrero is a 29 y.o. female who presents for Routine Visit Patient presents today for Return OB appointment. MEDICATIONS Current Outpatient Medications Medication Instructions docusate sodium (COLACE) 50 mg, 2 times daily labetalol (NORMODYNE) 200 mg, Oral, 2 times daily lamoTRIgine (LAMICTAL) 100 mg, 2 times daily MV-Min-Fe Fum-FA-DHA ( 1 PO) Take by mouth promethazine (PHENERGAN) 25 mg, Oral, Every 6 hours PRN, Take 1 tablet by mouth every 6 hours as needed for nausea. ALLERGIES No Known Allergies PROBLEMS Active Ambulatory Problems Diagnosis Date Noted Hypertension 01/14/2023 Seizure ([facility]) 07/09/2021 Breech presentation, no version ([facility]) 07/29/2023 Resolved Ambulatory Problems Diagnosis Date Noted [...] reviewed. Vitals: Estimated body mass index is 27.04 kg/m?? as calculated from the following: Height as of 11/16/22: 5' 9 . Weight as of 04/04/25: 183 lb 1.9 oz. BP: Patient's last menstrual period was 11/13/2024. ASSESSMENT & PLAN ICD-10-CM 1. Second trimester ([facility]) Z34.92 2. 24 weeks gestation of ([facility]) Z3A.24 3. Hypertension, unspecified type I10 4. Seizure ([facility]) R56.9 Return OB: Patient presents today for a routine obstetrics appointment. Patient is currently 24w0d . Patient states she is doing well but has complaints of being tired due to current . Patient has verbalizes frequent movement. labor precautions was discussed/given and patient was instructed to perform kick counts three times a day. Pt was given 1-hr glucose order to obtain at [facility]. No orders of the defined types were placed in this encounter. Follow Up: Patient is to return to office in 4 weeks for routine OB appointment. Documented by Kim Sousa MA on behalf of: CHRISTIANA Mills documented in this encounter Plan of Treatment DateTypeDepartmentCare Team (Latest Contact Info)Mpezpuixoga00/11/2025 11:40 AM ESTRoutine [facility] [address] [address] [facility] [place] [phone] Willis Chen DO [address] [facility] [place] [address] NameTypePriorityAssociated DiagnosesOrder ScheduleCBCLabRoutine Diabetes mellitus screening Expected: 04/30/2025 (Approximate), Expires: 04/30/2026Glucose tolerance, 1 hour LabRoutine Diabetes mellitus screening Expected: 04/30/2025 (Approximate), Expires: 04/30/2026documented as of this encounter Goals GoalPatient Goal TypeAssociated ProblemsRecent ProgressPatient-Stated?Author Reminders Care PlanOB RemindersNoOpen Scheduling, Backgrounddocumented as of this encounter Procedures Procedure NamePriorityDate/TimeAssociated DiagnosisCommentsPOCT URINALYSIS WWAETXNCRmfsrta24/13/2025 10:14 AM EDT Second trimester ([facility]) documented in this encounter Results * (ABNORMAL) POCT urinalysis dipstick manually resulted (04/30/2025 10:14 AM EDT)ComponentValueRef RangeTest MethodAnalysis TimePerformed AtPathologist SignatureColor, UAYellowClarity, UAClearGlucose, UANegativeNegative - 2000(110) ++++ mg/dLBilirubin, UANegativeNegative - 4(70) +++ mg/dLKetones, UA NegativeNegative - 160(16) ++++ mg/dLSpec Grav, UA1.0201 - 1.03Blood, UA NegativeNegative - 50 Jae/mcLpH, UA6.05 - 9Protein, UANegativeNegative - 2000(20) ++++ mg/dLUrobilinogen, UA1.00.2 - 12 mg/dLLeukocytes, UA2+Negative - 500+++ Marsha/mcLNitrite, UANegativeNegative - PositiveSpecimen (Source) Anatomical Location / LateralityCollection Method / VolumeCollection Time Received DodmRfcih34/13/2025 10:14 AM EDT Narrative Authorizing ProviderResult TypeResult StatusInova Women's Hospital TEST ENTER/EDIT ORDERABLESFinal Result documented in this encounter Visit Diagnoses Diagnosis Second trimester ([facility]) state, incidental 24 weeks gestation of ([facility]) Hypertension, unspecified type Seizure (HCC) Other convulsions Diabetes mellitus screening Screening for diabetes mellitus documented in this encounter Additional Health Concerns Active ProblemsNoted DateDiagnosed DateOB Qmichfqqa20/29/2023 documented as of this encounter Care Teams Team MemberRelationshipSpecialtyStart [place] [address] [place], [place] [phone] PCP - GeneralFamily Medicine01/14/23documented as of this encounter
--- OUTSIDE RECORDS SUMMARY | 2025-05-19 11:25 | XMS_ITS | CCD ---
Author Organization [facility] Care Team Providers Care Quebracho Tanner Name Role Phone Uriarte, Koffi A Unavailable [...] Unavailable APRIL ., DR GONZALEZ Attending Unavailable PERICO, DR HAYLIE Garcia Consulting Unavailable APRIL ., DR GONZALEZ Consulting Unavailable Chapito, Dr. Koffi Rosas Primary Care Dario Uriarte, Dr. Koffi Rosas Attending Dario Uriarte, Dr. Koffi Rosas Referring Dario Uriarte MD, Koffi Rosas Primary Care Provider Koffi Uriarte MD Unavailable [phone] Willis Chen Attending Unavailable Willis Chen Admitting Unavailable Provider, None Primary Care Unavailable TARAS FAUSTIN Admitting Unavailable TARAS FAUSTIN Attending Unavailable Vinita PABLO Attending Unavailable MILAGRO HUGHES Primary Care Unavailable Spenser COLLINS Attending Unavailable MILAGRO HUGHES Primary Care Unavailable Koffi Uriarte MD Primary Care Provider Koffi Uriarte MD Primary Care Provider NEDRA CALDERON Attending Unavailable KOFFI URIARTE Primary Care UnavailKOFFI Aguilera Attending UnavailKOFFI Aguilera Primary Care Unavailmary Uriarte MD, Koffi Primary Care Provider ROULA GRULLON Attending Unavailable WILLIS CHEN Attending Unavailable WILLIS CHEN Referring Unavailable ROULA GRULLON Attending Unavailable WILLIS CHEN Attending Unavailable ROULA GRULLON Attending Unavailable Allergies Allergy ClassificationReported Allergen(s)Allergy TypeDate of OnsetReaction(s) Facility (2 sources)No Known Medication Allergies; Translations: [No Known Medication Allergies]Propensity to adverse reactions (disorder)[facility] Repository Medications Current Medications MedicationDrug Class(es)DatesSig (Normalized)Sig (Original)docusate sodium 50 mg oral capsule (18 sources)take 1 capsule by mouth in the morningdocusate sodium (Colace) 50 MG capsule Take 50 mg by mouth in the morning and 50 mg before bedtime.Active{21 (Ethinyl Estradiol 0.02 MG / Levonorgestrel 0.1 MG Oral Tablet) / 7 (Inert Ingredients 1 MG Oral Tablet) } Pack [Orsythia 28 Day] (9 sources)Progestin, Estrogen, Progestin-containing Intrauterine DeviceStart: 52-40-1815Uxmavmig 100 mcg-20 mcg oral tablet 1 tab(s), Oral, Daily, 3 EA, Refill(s) [facility] #0220 Start Date: 06/05/19 Status: OrderedStart: 37-42-0805szrv 1 tablet by mouth once dailyOrsythia 0.1-20 MG-MCG Oral Tablet TAKE 1 TABLET DAILY. Quantity: 1 Refills: 3 Koffi Uriarte MD Start : 12-Oct-2015 Active 28 Tablet Packtake 0.1-20 tablets by mouth once levonorgestrel-ethinyl estradiol (LUTERA) 0.1-20 MG-MCG per tablet Take 1 tablet by mouth daily. 0 Activelabetalol hydrochloride 200 mg oral tablet (20 sources)beta-Adrenergic BlockerStart: 92-78-1713rhjk 1 tablet by mouth in the morninglabetalol (Normodyne) 200 MG tablet Indications: Secondary hypertension Take 1 tablet (200 mg) by mouth in the morning and 1 tablet (200 mg) before bedtime. 60 tablet 3 04/18/2025 ActiveStart: 09-12-2024 End: 89-90-7440rjhv 1 tablet by mouth twice dailylabetalol (Normodyne) 300 mg tablet Indications: Benign essential hypertension Take 1 tablet (300 mg) by mouth 2 times a day. 60 tablet 5 09/12/2024 03/11/2025 ActiveStart: 11-09-2023 End: 14-62-5086vqyn 1 tablet by mouth twice dailylabetalol (Normodyne) 200 MG tablet Indications: Secondary hypertension TAKE 1 TABLET BY MOUTH TWICE A DAY 60 tablet 3 09/06/2024 ActivelamoTRIgine 100 mg oral tablet (20 sources)Mood Stabilizer, Anti-epileptic AgentStart: 92-36-6947ylus 100 mg by mouth once dailyLamotrigine Active 100 MG PO Daily November 09, 2023 12:00am Start: 77-14-1078sbuz 1 tablet by mouth twice dailylamoTRIgine (LaMICtal) 100 mg tablet Indications: Unspecified convulsions (Multi) TAKE 1 TABLET BY MOUTH TWICE A DAY 60 tablet 11 01/03/2024 ActivelamoTRIgine (LAMICTAL) 25 mg tablet levothyroxine sodium 0.025 mg oral tablet (1 source)l-ThyroxineStart: 12-07-2022 End: 81-44-7972kkuo 1 tablet by mouth once daily before mealtimelevothyroxine (Synthroid, Levoxyl) 25 mcg tablet Take 1 tablet (25 mcg) by mouth once daily in the morning. Take before meals. 0 12/07/2022 04/30/2023 Discontinued (Therapy completed)lisinopril 10 mg oral tablet (20 sources)Angiotensin Converting Enzyme InhibitorStart: 05-13-2023 End: 95-45-9150ojef 1 tablet by mouth once dailylisinopril 10 mg tablet Indications: Benign essential hypertension Take 1 tablet (10 mg) by mouth once daily. 90 tablet 3 05/13/2023 05/03/2024 Discontinued (Med List Cleanup)Start: 03-09-2023 End: 54-99-9828hutx 1 tablet by mouth once dailylisinopril 10 mg tablet Indications: Primary hypertension TAKE 1 TABLET BY MOUTH EVERY DAY 30 tablet 6 03/09/2023 04/30/2023 Discontinued (Entered in Error)Start: 56-10-4082kbxa 1 tablet by mouth once dailyLisinopril 10 MG Oral Tablet TAKE 1 TABLET DAILY. Quantity: 90 Refills: 3 Ordered: 02-Jan-2022 Koffi Uriarte MD Start : 14-Oct-2020 ActiveStart: 98-23-7118cnzondnmcl (ZESTRIL, PRINIVIL) 10 mg tablet Take by mouth q 24 HR. 0 10/14/2020 ActiveComment on above:Take by mouth q 24 HR.24 hr metFORMIN hydrochloride 500 mg extended release oral tablet (1 source)BiguanideStart: 11-16-2022 End: 80-87-5881uebk 1 tablet by mouth once daily at mealtimemetFORMIN XR 500 mg 24 hr tablet Take 1 tablet (500 mg) by mouth once daily in the evening. Take wit h meals. 0 11/16/2022 04/30/2023 Discontinued (Therapy completed)naproxen 500 mg oral tablet (1 source)Nonsteroidal Anti-inflammatory DrugStart: 78-21-3582kvwb 1 tablet by mouth twice dailyNaprosyn 500 mg Tab 500 mg = 1 tab(s), Oral, BID, # 120 tab(s), Refills(s) 0, [facility]: [id number] Start Date: 06/05/19 Status: Ordered MV-Min-Fe Fum-FA-DHA ( 1 PO) (20 sources) MV-Min-Fe Fum-FA-DHA ( 1 PO) Take by mouth Active promethazine hydrochloride 12.5 mg oral tablet (18 sources)PhenothiazineStart: 43-67-8543jqrk 2 tablets by mouth every six hours as needed for nausea and nausea, then take 1 tablet by mouth every six hours as needed for nausea and nauseapromethazine (Phenergan) 12.5 MG tablet Indications: Nausea and vomiting, unspecified vomiting typeTake 2 tablets (25 mg) by mouth every 6 (six) hours if needed for nausea or vomiting for up to 30 doses Take 1 tablet by mouth every 6 hours as needed for nausea. 30 tablet 1 02/02/2025 ActiveStart: 15-17-7726vuoh 2 tablets by mouth every six hours as needed for nausea and nausea, then take 1 tablet by mouth every six hours as needed for nausea and nauseapromethazine (Phenergan) 12.5 MG tablet Indications: Nausea and vomiting, unspecified vomiting typeTake 2 tablets (25 mg) by mouth every 6 (six) hours if needed for nausea or vomiting for up to 30 doses Take 1 tablet by mouth every 6 hours as needed for nausea. 30 tablet 2 02/01/2025 ActiveStart: 14-82-6046fyxi 2 tablets by mouth every six hours as needed for nausea and nausea, then take 1 tablet by mouth every six hours as needed for nausea and nauseapromethazine (Phenergan) 12.5 MG tablet Indications: Nausea and vomiting, unspecified vomiting typeTake 2 tablets (25 mg) by mouth every 6 (six) hours if needed for nausea or vomiting for up to 30 doses Take 1 tablet by mouth every 6 hours as needed for nausea. 30 tablet 2 02/01/2025 Activesodium chloride flush 0.9 % injection 3 mL (1 source)Start: 62-99-3948vnjeoa chloride flush 0.9 % injection 3 mL Completed/Discontinued Medications MedicationDrug Class(es)DatesSig (Normalized)Sig (Original)busPIRone hydrochloride 10 mg oral tablet (3 sources)Start: 03-33-8525wmkp 1 tablet by mouth three times daily as needed busPIRone HCl - 10 MG Oral Tablet TAKE 1 TABLET 3 times daily PRN Quantity: 60 Refills: 1 Koffi Uriarte MD Start : 28-May-2020 Activegadoteridol (PROHANCE) injection 15 mL (1 source)Start: 05-09-2020 End: 84-66-8958loowynuscyh (PROHANCE) injection 15 mLmelatonin 10 mg oral tablet (8 sources)Start: 78-02-0536vfys 1 tablet by mouth at bedtimeMelatonin 10 MG Oral Tablet TAKE 1 TABLET Bedtime Quantity: 30 Refills: 3 Ordered: 25-Apr-2020 Doe Anrdade DO Start : 25-Apr-2020 Active Patient requesting compounded melatoninmetroNIDAZOLE 500 mg oral tablet (10 sources)Nitroimidazole AntimicrobialStart: 09-09-2021 End: 72-11-0073lrxm 1 tablet by mouth twice dailymetroNIDAZOLE (FLAGYL) 500 mg tablet Indications: Acute vaginitis Take 1 tablet by mouth twice daily. for vaginosis. Do not drink alcohol while taking this medication 14 tablet 0 02/03/2022 ActiveStart: 96-22-2371hqxtbECMFRQCZ 0.75 % Vaginal Gel INSERT 1 APPLICATORFUL INTRAVAGINALLY AT BEDTIME NIGHTLY. Quantity: 1 Refills: 0 Ordered: 20-May-2021 Koffi Uriarte MD Start : 20-May-2021 ActiveStart: 06-09-2019 End: 20-65-7911MedpsMqu-Vaginal 0.75% gel with applicator 1 bruce, Vaginal, BID, 70 gram, Refill(s) 0, [facility] Start Date: 06/09/19 Stop Date: 06/14/19 Status: OrderedComment on above:Take 1 tablet by mouth twice daily. for vaginosis. Do not drink alcohol while taking this medicationondansetron 4 mg disintegrating oral tablet (11 sources)Serotonin-3 Receptor AntagonistStart: 01-12-2025 End: 15-95-1029xkph 1 tablet by mouth every six hours for nauseaondansetron ODT (Zofran-ODT) 4 MG disintegrating tablet Indications: Nausea and vomiting in ([facility]) Take 1 tablet (4 mg) by mouth every 6 (six) hours if needed for nausea or vomiting 30 tablet 2 01/12/2025 02/11/2025 ExpiredStart: 36-02-1039opqp 4 mg by mouth every eight hoursOndansetron Hcl Active 4 MG PO Every 8 hours November 09, 2023 12:00amStart: 02-10-2023 End: 65-28-3539eiuh 2 tablets by mouth twice daily as needed for nausea ondansetron (Zofran) 4 mg tablet Take 2 tablets (8 mg) by mouth 2 times a day as needed for nausea.02/10/2023 05/03/2024 Discontinued (Med List Cleanup)Orsythia 0.1-20 MG-MCG Oral Tablet (3 sources)Start: 98-88-0655izsr 1 tablet by mouth once dailyOrsythia 0.1-20 MG- MCG Oral Tablet TAKE 1 TABLET DAILY. Quantity: 1 Refills: 3 Ordered: 25-May-2019 Koffi Uriarte MD Start : 12-Oct-2015 Activesertraline 50 mg oral tablet (4 sources)Serotonin Reuptake InhibitorStart: 36-71-6407eghq 1 tablet by mouth once dailySertraline HCl - 50 MG Oral Tablet TAKE 1 TABLET DAILY. Quantity: 30 Refills: 11 Ordered: 14-Oct-2020 Koffi Uriarte MD Start : 28-May-2020 Tejyqz32 ml sodium chloride 9 mg/ml injection (1 source)Start: 04-18-2020 End: 04-19-20200.9 % sodium chloride bolus Problems Active Problems Problem ClassificationProblemDateDocumented DateEpisodic/ChronicAnxiety disorders (20 sources)Anxiety; Translations: [Anxiety state, unspecified]Onset: 10-02-2022 64-37-0161OxwgxmwRsrhthredvnzj and procreative management (7 sources)Contraception ; Translations: [Encounter for surveillance of contraceptives, unspecified]Onset: 584470-25-4731ZnzxjkoeFwqpuqxy; convulsions (1 source)Idiopathic generalized epilepsy; Translations: [Nonintractable generalized idiopathic epilepsy without status epilepticus (HCC)]Chronic Essential hypertension (20 sources)Benign essential hypertension; Translations: [Benign essential hypertension]Onset: 10-02-2022 Resolved: 015637-08-3922IajtxrhTxkwehavpc during ; abruptio placenta; placenta previa (2 sources)Antepartum hemorrhage; Translations: [Hemorrhage in early , unspecified]Onset: 81-71-6832YzxgaaunHuqmlmwdeoici and screening for infectious disease (4 sources)Encounter for screening for infections with a predominantly sexual mode of transmission; Translations: [Exposure to sexually transmissible disorder]Onset: 814148-04-9169GbgxoarwRiaunhglz disorders (3 sources)Missed period; Translations: [Irregular menstruation, unspecified] 51-14-0358LqtlgcgIcsdny and vomiting (2 sources)Nausea and vomiting; Translations: [Nausea with vomiting, unspecified]47-06-2544WwgwjbpoYrmoacnsquq deficiencies (3 sources)Vitamin D deficiency; Translations: [Vitamin D deficiency, unspecified]Onset: 451490-38-2310XrvxkfbPqxah complications of (1 source)Vomiting of , unspecified; Translations: [Unspecified vomiting of , unspecified as to episode of care or not applicable] 36-57-2162LgawkewpQhpcd female genital disorders (18 sources)Vaginal discharge; Translations: [Leukorrhea, not specified as infective]Onset: 10-02-2022 Resolved: 241092-25-3718YhmnlzgfVtyph nutritional; endocrine; and metabolic disorders (3 sources)Obese class I; Translations: [Obesity, unspecified]Onset: 07-04-2021 69-65-1887ToldrecOlmlx and delivery including normal (12 sources); Translations: [Encounter for supervision of normal , unspecified, unspecified trimester]70-31-6931ExmxuktnOnnmy screening for suspected conditions (not mental disorders or infectious disease) (4 sources)Patient encounter status; Translations: [Encounter for other specified screening]56-05-8299YyyhmwfcAzkwp upper respiratory infections (20 sources)Chronic sinusitis; Translations: [Chronic pansinusitis]Onset: 10-02-2022 Resolved: 936472-83-0112FhcylzsTxksxm media and related conditions (5 sources)Chronic otitis media; Translations: [Bilateral chronic otitis media] ChronicPolyhydramnios and other problems of amniotic cavity (2 sources)Subchorionic hematoma; Translations: [Other specified disorders of amniotic fluid and membranes, second trimester, not applicable or unspecified] 80-90-2982EyhuovrwIptcelao codes; unclassified (2 sources)Gestation period, 11 weeks; Translations: [11 weeks gestation of ]15-14-3497YjyfpblsKapodspx codes; unclassified (2 sources)Gestation period, 12 weeks; Translations: [12 weeks gestation of ]04-51-2628XqupjepeDylfhxps codes; unclassified (2 sources)Gestation period, 16 weeks; Translations: [16 weeks gestation of ]24-91-1755BoyxwaaeNswzraii codes; unclassified (2 sources)Gestation period, 20 weeks; Translations: [20 weeks gestation of ]80-11-0443DzxvycnbSvtkqrxt codes; unclassified (2 sources)Gestation period, 24 weeks; Translations: [24 weeks gestation of ]72-14-7386LkkbwsfbZocpaapiaxiq (1 source)Unknown / UNK(Unknown)Onset: 98-18-1075Keckkrnvkmdn (3 sources)APPOINTMENT CANCELLEDOnset: 840702-26-8226Jtsvwnhueciu (20 sources)OB RemindersOnset: 063393-56-6614 Past or Other Problems Problem ClassificationProblemDateDocumented DateEpisodic/ChronicAcute and chronic tonsillitis (9 sources)Amygdalolith; 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 Calderon. lamotrigine;Inflammatory diseases of female pelvic organs (18 sources)Bacterial vaginosis; Translations: [Vaginitis and vulvovaginitis, unspecified]Onset: 07-04-2021 Resolved: 19-49-6551BuedzditPffwmot and fatigue (4 sources)Fatigue; Translations: [Other fatigue]Onset: EpisodicMalposition; malpresentation (20 sources)Breech presentation; Translations: [Maternal care for breech presentation, not applicable or unspecified]Onset: 135150-31-8913Zlwdzawi Nonspecific chest pain (20 sources)Chest pain; Translations: [Chest pain, unspecified]Onset: 10-02-2022 Resolved: 517586-19-2601LhgfsqjmTikggnytwei deficiencies (20 sources)Cobalamin deficiency; Translations: [Other B-complex deficiencies] Onset: 609264-09-2794WufardrnAoyhs circulatory disease (20 sources)Feeling of lump in throat; Translations: [Gastrointestinal malfunction arising from mental factors]Onset: 10-02-2022 Resolved: 366572-45-9679SosuroldCtkoa circulatory disease (20 sources)Elevated blood-pressure reading without diagnosis of hypertension; Translations: [Elevated blood pressure reading without diagnosis of hypertension]Onset: 10-02-2022 Resolved: 381647-88-8827WwwlylzrJvqme ear and sense organ disorders (20 sources)Conductive hearing loss, bilateral; Translations: [Conductive hearing loss, bilateral]Onset: 10-02-2022 Resolved: 190106-91-1515QnqwuuxRbipb nutritional; endocrine; and metabolic disorders (9 sources)Obesity; Translations: [Obesity, unspecified]Onset: 03-28-2023 Resolved: 869679-74-5633UmgoasmCevdw nutritional; endocrine; and metabolic disorders (19 sources)Abnormal weight gain; Translations: [Abnormal weight gain]Onset: 10-02-2022 Resolved: 977041-16-5560NoqudnbxDdotn skin disorders (20 sources)Loss of hair; Translations: [Alopecia, unspecified]Onset: 10-02-2022 Resolved: 205637-64-6254KvkidpgoCpphe upper respiratory disease (20 sources)Allergic rhinitis; Translations: [Allergic rhinitis, cause unspecified]Onset: 10-02-2022 Resolved: 281381-48-4000IddwggwBjiobe media and related conditions (19 sources)Chronic otitis media; Translations: [Unspecified otitis media]Onset: 10-02-2022 Resolved: 576571-81-6794EreeyvfsMlpeaahn codes; unclassified (20 sources)Insomnia; Translations: [Insomnia, unspecified]Onset: 10-02-2022 Resolved: 469939-44-6832BckasnetYkfnscfyckiq (1 source)R07.9 35717/8Onset: 94-57-4707Gffajxnlmbha (5 sources)Patient encounter status; Translations: [Encounter for audiology evaluation]Unclassified (2 sources)Onset: 715667-84-5701ZRTCEED: Highlighted row has not occurred! Residual codes; unclassified (17 sources)DiseaseEpisodic Results Test NameValueInterpretationReference RangeFacilityUrinalysis macro (dipstick) panel (U)on 82-84-0539Jmefgpklo, UANegativeNegative - 4(70) +++ mg/dLNOMS HealthcareBlood, UANegativeNegative - 50 Jae/mcLNOMI HealthcareClarity, UAClear [facility] HealthcareColor, UAYellowNOMS HealthcareGlucose, UANegativeNegative - 2000(110) ++++ mg/dLNOMI HealthcareInterpretation and review of laboratory resultsAbnormalNOMI HealthcareKetones, UANegativeNegative - 160(16) ++++ mg/dL [facility] CenterLeukocytes, UA2+Negative - 500+++ Marsha/mcLNOMI HealthcareNitrite, UANegativeNegative - PositiveNOMS HealthcarepH, UA6.05 - 9N[facility] Protein, UANegativeNegative - 2000(20) ++++ mg/dLNOMI HealthcareSpec Grav, UA 1.0201 - 1.03NOMS HealthcareUrobilinogen, UA1.00.2 - 12 mg/dLNOMS HealthcareNOMS HealthcareAFP, SERUM, OPEN SPINA BIFIDAon 43-94-8002NXI MOM0.82.[facility] AFP VALUE45.0 ng/mL.NOMS HealthcareCOMMENT:Comment.[facility] HealthcareComment on above:Jeny Avila, Ph.D., [facility] Director References: Available Upon Request. Multiples Of Median Cutoffs For AFP Elevations Payan 2.5 Black 2.8 IDD 2.0 Twins 4.5 Abbreviation Definitions IDD - Insulin Dep Diabetes OSBR - Open Spina Bifida Risk For further inquiries contact [facility] at [phone]. This test was developed and its performance characteristics determined by [facility] It has not been cleared or approved by the Food and Drug Administration. Performed at: [place] [facility] [address] [facility], [place], [place] [id number] Health Coach: Abdulaziz Aquino [facility], Phone: [phone] GEST. AGE ON COLLECTION DATE20.7. weeksNOMI HealthcareGESTAT. AGE BASED ONLMP. NOMS HealthcareComment on above:Recalculations are not recommended when gestational dating by LMP and ultrasound are within 10 days. INSULIN DEP DIABETESNo.NOMS HealthcareINTERPRETATIONComment.[facility] Healthcare Comment on above:Interpretation: Screen Negative This result is screen negative for OSB. The AFP MoM calculated is based on the gestational age provided. MS-AFP can identify up to 80% of open neural tube defects. Closed neural tube defects and some open defects may not be detected by this test. This test does not screen for Down Syndrome or Trisomy 18. If screening for Down Syndrome or Trisomy 18 is desired, contact [facility] to discuss available options. The [employer] recommends amniocentesis be offered to women age 35 and older. MATERNAL AGE AT EDD31.8. yrNOMS HealthcareMULTIPLE GESTATIONNo.[facility] OSBR RISK 1 [id number].NOMS HealthcareRACECaucasian.NOMS HealthcareRESULTSReport. [facility] HealthcareTEST RESULTS:Negative.NOM NobanahsiwMZETVW632. lbsNOMI HealthcarePREGNANCY N N LMP [id number] 2 16 N 1 Y 183 N N N N N White/ CLINISYNCNOWashington County Memorial HospitalNo Panel InformationOrdered By: Radiologist Radiology on 06-77-8695BFWR Healthcare Work Phone: No Panel Informationon 87-60-8467Cgzhwjujz Study observation (narrative)NOM HealthcareUS OB ANATOMYon 85-87-2843[place] [address] Ultrasound Report Signed Patient: PRINCESS GUERRERO MR#: [id number] : 1995 Acct:[id number] Age/Sex: 29 / F ADM Date: 04/03/25 Loc: US Attending Dr: Willis Chen D.O. Ordering Physician: Willis Chen D.O. Date of Service: 04/03/25 Procedure(s): US OB anatomy Accession Number(s): [id number] cc: Willis Chen D.O.; KOFFI URIARTE M.D. [facility] [place] [address] Patient Name: PRINCESS GUERRERO MRN: [id number] date: 1995 Sex: F Assigned Patient Location: US Current Patient Location: Accession/Order Number: [id number] Exam Date: 04/03/2025 18:53 Report Date: 04/04/2025 [...] all 4 extremities were surveyed by the army ranger and no abnormalities were reported. The stomach, [...] Pisano M.D. 04/04/2025 9:12 AM Dictation Location: [place] [address] Electronically authenticated by: [id number] Y Date: 04/04/2025 09:12 Dictated By: Cyndi Pisano M.D. Signed By: 04/04/25913 DD/ 1 TD/TT: Manager House:LIZETHHRadiology, Radiologist, - 04/04/2025 [place] [address] Ultrasound Report Signed Patient: PRINCESS GUERRERO MR#: [id number] : 1995 Acct:[id number] Age/Sex: 29 / F ADM Date: 04/03/25 Loc: US Attending Dr: Willis Chen D.O. Ordering Physician: Willis Chen D.O. Date of Service: 04/03/25 Procedure(s): US OB anatomy Accession Number(s): [id number] cc: Willis Chen D.O.; KOFFI URIARTE M.D. [facility] [place] [address]011 Patient Name: PRINCESS GUERRERO MRN: [id number] date: 1995 Sex: F Assigned Patient Location: US Current Patient Location: Accession/Order Number: [id number] Exam Date: 04/03/2025 18:53 Report Date: 04/04/2025 [...] all 4 extremities were surveyed by the army ranger and no abnormalities were reported. The stomach, [...] Pisano M.D. 04/04/2025 9:12 AM Dictation Location: [place] [address] Electronically authenticated by: [id number] Y Date: 04/04/2025 09:12 Dictated By: Cyndi Pisano M.D. Signed By: 04/04/25913 DD/ 1 TD/TT: Manager House: JOSY Lopez OB CERVICAL LENGTHon 91-80-4933Wh[place] [address] Ultrasound Report Signed Patient: PRINCESS GUERRERO MR#: [id number] : 1995 Acct:[id number] Age/Sex: 29 / F ADM Date: 04/03/25 Loc: US Attending Dr: Willis Chen D.O. Ordering Physician: iWllis Chen D.O. Date of Service: 04/03/25 Procedure(s): US OB cervical length Accession Number(s): [id number] cc: Willis Chen D.O.; KOFFI URIARTE M.D. [place] [address] Patient Name: PRINCESS GUERRERO MRN: [facility]:[id number] date: 1995 Sex: F Assigned Patient Location: Current Patient Location: Accession/Order Number: [id number] Exam Date: 04/03/2025 18:53 Report Date: 04/04/2025 [...] all 4 extremities were surveyed by the army ranger and no abnormalities were reported. The stomach, [...] Pisano M.D. 04/04/2025 9:12 AM Dictation Location: [employer] Electronically authenticated by: [id number] Y Date: 04/04/2025 09:12 Dictated By: Cyndi Pisano M.D. Signed By: 04/04/25913 DD/ 1 TD/TT: Manager House:RAYNAadiology, Radiologist, - 04/04/2025 [place] [address] Ultrasound Report Signed Patient: PRINCESS GUERRERO MR#: [id number] : 1995 Acct:[id number] Age/Sex: 29 / F ADM Date: 04/03/25 Loc: US Attending Dr: Willis Chen D.O. Ordering Physician: Willis Chen D.O. Date of Service: 04/03/25 Procedure(s): US OB cervical length Accession Number(s): [id number] cc: Willis Chen D.O.; KOFFI URIARTE M.D. [facility] [place] [address] Patient Name: PRINCESS GUERRERO MRN: [facility]:[id number] date: 1995 Sex: F Assigned Patient Location: US Current Patient Location: Accession/Order Number: [id number] Exam Date: 04/03/2025 18:53 Report Date: 04/04/2025 [...] all 4 extremities were surveyed by the army ranger and no abnormalities were reported. The stomach, [...] Pisano M.D. 04/04/2025 9:12 AM Dictation Location: [facility] Electronically authenticated by: [id number] Y Date: 04/04/2025 09:12 Dictated By: Cyndi Pisano M.D. Signed By: 04/04/25913 DD/ 1 TD/TT: Manager House: [facility] CenterUrinalysis macro (dipstick) panel (U)on 85-30-9018Udujacwqv, UA NegativeNegative - 4(70) +++ mg/dLNOMS HealthcareBlood, UANegativeNegative - 50 Jae/mcLNOMI HealthcareClarity, UAClearNOMS HealthcareColor, UAStrawNOMS HealthcareGlucose, UANegativeNegative - 2000(110) ++++ mg/dLNOMS Healthcare Interpretation and review of laboratory resultsAbnormalNOMS HealthcareKetones, UAPositiveNegative - 160(16) ++++ mg/dLNOMS HealthcareLeukocytes, UAPositive Negative - 500+++ Marsha/mcLNOMS HealthcareNitrite, UANegativeNegative - Positive NOMS HealthcarepH, UA65 - 9NOMS HealthcareProtein, UAPositiveNegative - 2000(20) ++++ mg/dLNOMS HealthcareSpec Grav, UA1.021 - 1.03NOMS HealthcareUrobilinogen, UA1.00.2 - 12 mg/dLNOMS HealthcareNOMS HealthcareUS OB LIMITED 1+ FETUSESon 84-99-5522YW OB LIMITED 1+ FETUSESFINDINGS: Cephalic presentation. Posterior placenta. heart rate 156. No evidence of significant amniotic band or subchronic hemorrhage. IMPRESSION: Normal viable fetus, no gestational sac abnormality TRANSCRIBED BY: ELECTRONICALLY SIGNED BY: Luis E Arellano AvailableIGP,APTIMA HPV,AGE GDLNon 88-28-3810KSL GDLN ACOG TESTINGNoteCARLITOSS HealthcareComment on above:TESTS RESULT FLAG UNITS REF RANGE LAB Clinician Provided Cytology Information Source.............Endocervix No. of containers..01 ThinPrep Vial Age Algo ACOG Evie... FLAG LEGEND: L-Low Normal,H-High Normal,LL-Alert Low,HH-Alert High <-Panic Low,>-Panic High,A-Abnormal,AA-Critical Abnormal Performed at: 01 =[address] [address] Karena Lester MD, HPV APTIMANegativeNegativeNOMS HealthcareComment on above:This nucleic acid amplification test detects fourteen high- risk HPV types (16,18,31,33,35,39,45,51,52,56,58,59,66,68) without differentiation. Performed at: =[address] [id number] Health Coach: Karena Lester MD, Phone: [phone] Performed at: [address] [id number] Health Coach: Karena Lester MD, Phone: [phone] IGP, APTIMA HPV, RFX 16/18,45Note.NOMS HealthcareComment on above:TESTS RESULT FLAG UNITS REF RANGE LAB DIAGNOSIS: 02 NEGATIVE FOR INTRAEPITHELIAL LESION OR MALIGNANCY. Specimen adequacy: 02 Satisfactory for evaluation. No endocervical component is identified. Performed by: 02 Calvin [place] [employer] Pipe [employer]anks (ASC) . 02 Note: Note 02 The Pap [...] Low,>-Panic High,A-Abnormal,AA-Critical Abnormal Performed at: [address] [address] Karena Lester MD, SPATULA-ALONE ENDOCERVIX CLINISYNCNOMS HealthcareRECURRENT VAGINITIS (HTRX)on 65-26-4820NZRWSWGMC VAGINAE 0NOMS HealthcareATOPOBIUM VAGINAENot detectedNOMS HealthcareBVAB 2,3 (BACTERIAL VAGINOSIS ASSOCIATED BACTERIA 2, 3); MOBILUNCUS KGZ1DPSF HealthcareBVAB 2,3 (BACTERIAL VAGINOSIS ASSOCIATED BACTERIA 2, 3); MOBILUNCUS SPPNot detectedNOMS HealthcareCANDIDA ALBICANS, PARAPSILOSIS, [id number] HealthcareCANDIDA ALBICANS, PARAPSILOSIS, TROPICALISNot detectedNOMS HealthcareCANDIDA GLABRATA0 NOMS HealthcareCANDIDA GLABRATANot detectedNOMS HealthcareCANDIDA [id number] HealthcareCANDIDA KRUSEINot detectedNOMS HealthcareCHLAMYDIA JJIUENALLPV7GODN HealthcareCHLAMYDIA TRACHOMATISNot detectedNOMS HealthcareGARDNERELLA VAGINALIS0 NOMS HealthcareGARDNERELLA VAGINALISNot detectedNOMS HealthcareMEGASPHAERA (TYPES 1, 2)0NOMS HealthcareMEGASPHAERA (TYPES 1, 2)Not detectedNOMS Healthcare MYCOPLASMA [id number] HealthcareMYCOPLASMA GENITALIUMNot detectedNOMS HealthcareNEISSERIA [id number] HealthcareNEISSERIA GONORRHOEAENot detected NOMS HealthcareTRICHOMONAS [id number] HealthcareTRICHOMONAS VAGINALISNot detectedNOMS HealthcareNOMS HealthcareUrinalysis macro (dipstick) panel (U)on 62-78-1800Bvzgfrlvj, UANegativeNegative - 4(70) +++ mg/dLNOMS HealthcareBlood, UAPositiveNegative - 50 Jae/mcLNOMI HealthcareClarity, UAClearNOMS Healthcare Color, UAYellowNOMS HealthcareGlucose, UANegativeNegative - 2000(110) ++++ mg/dL [facility] HealthcareInterpretation and review of laboratory resultsAbnormalNOMS HealthcareKetones, UANegativeNegative - 160(16) ++++ mg/dLNOMI Healthcare Leukocytes, UANegativeNegative - 500+++ Marsha/mcLNOMS HealthcareNitrite, UA NegativeNegative - PositiveNOMS HealthcarepH, UA65 - 9NOMS HealthcareProtein, UA NegativeNegative - 2000(20) ++++ mg/dLNOMI HealthcareSpec Grav, UA1.021 - 1.03 NOMS HealthcareUrobilinogen, UA1.00.2 - 12 mg/dLNOMI HealthcareNOMS HealthcareUS OB < 14 WEEKS EARLYon 80-77-4458GI OB < 14 WEEKS EARLYFINDINGS: Single viable intrauterine , cardiac activity 145 bpm. Normal cardiac activity. No significant subchorionic fluid collection. Thin septation neighboring the cord, questionable significance, possible developing band. IMPRESSION: Viable intrauterine no abnormal subchorionic fluid collection. Given the additional findings within the gestational sac, follow up imaging may be of assistance. TRANSCRIBED BY: ELECTRONICALLY SIGNED BY: Michael Eid MDNormalNot AvailableComment on above:Order Comment: US OB < 14 Weeks (Abdominal ONLY) Patient's last menstrual period was 11/13/2024.Urinalysis macro (dipstick) panel (U)on 59-36-9221Xnibswrwn, UANegativeNegative - 4(70) +++ mg/dLNOMS Healthcare Blood, UANegativeNegative - 50 Jae/mcLNOMI HealthcareClarity, UAClearNOMS HealthcareColor, UAYellowNOMS HealthcareGlucose, UANegativeNegative - 2000(110) ++++ mg/dLNOMI HealthcareInterpretation and review of laboratory resultsNormal NOMS HealthcareKetones, UAPositiveNegative - 160(16) ++++ mg/dLNOMS Healthcare Leukocytes, UANegativeNegative - 500+++ Marsha/mcLNOMI HealthcareNitrite, UA NegativeNegative - PositiveNOMS HealthcarepH, UA55 - 9NOMS HealthcareProtein, UA TraceNegative - 2000(20) ++++ mg/dLNOMS HealthcareSpec Grav, UA1.031 - 1.03NOMS HealthcareUrobilinogen, UA1.00.2 - 12 mg/dLNOMS HealthcareNOMS HealthcareBOX TESTon 96-01-6871DSK TEST SENT OUTYESNOMI VyhipoupbqHGS2TNXWISWAN HealthcareBOX2 01/22/25NOMI HealthcareCLINISYNCNOMS HealthcareUS Pelvis transvaginalon 01-14-2025 EXAM: US OB TRANSVAGINAL HISTORY: Dating. COMPARISON: [...] II, MD, PHD at 14-Jan-2025 10:04:37 PM [facility] IMAGINGSluss, MD Rosenda - 01/14/2025 EXAM: US OB TRANSVAGINAL HISTORY: [...] II, MD, PHD at 14-Jan-2025 10:04:37 PM [facility] NOMS HealthcareUS Pelvis transvaginalOrdered By: Rosenda Torres on 18-46-0720[employer] Work Phone: HCG ( test) Ql (U)on 00-87-2252Fqzdyqbbbfnmok and review of laboratory resultsAbnormalNOMI HealthcarePreg Test, UrPositive NegativeNOSt. [facility] HealthcareUS OB TRANSVAGINALon 10-51-4992XI OB TRANSVAGINALEXAM: US OB TRANSVAGINAL HISTORY: Dating. COMPARISON: None [...] II, MD, PHD at 14-Jan-2025 10:04:37 PM [facility] TeleradiologyNormalNot AvailableComment on above:Order Comment: US OB TRANSVAGINAL No LMP recorded.US Pelvis transvaginalon 06-95-1685Rjcdxyonz Study observation (narrative)NOMS HealthcareUrinalysis macro (dipstick) panel (U)on 01-12-2025 Bilirubin, UANegativeNegative - 4(70) +++ mg/dLNOMS HealthcareBlood, UANegative Negative - 50 Jae/mcLNOMS HealthcareClarity, UAClearNOMS HealthcareColor, UA YellowNOMS HealthcareGlucose, UANegativeNegative - 2000(110) ++++ mg/dLNOMS HealthcareInterpretation and review of laboratory resultsAbnormalNOMI Healthcare Ketones, UANegativeNegative - 160(16) ++++ mg/dLNOMS HealthcareLeukocytes, UA TraceNegative - 500+++ Marsha/mcLNOMS HealthcareNitrite, UANegativeNegative - PositiveNOMS HealthcarepH, UA75 - 9NOMS HealthcareProtein, UANegativeNegative - 2000(20) ++++ mg/dLNOMS HealthcareSpec Grav, UA1.021 - 1.03NOMS Healthcare Urobilinogen, UA0.20.2 - 12 mg/dLNOMS HealthcareNOMS Myaunzebxl28-gsmezsxuglsdze D3 [Mass/Vol]on 973427-luepsbjpvuqljq D [Mass/Vol]26 ng/mLLow30 - 100 ng/mLUpper Valley Medical CenterComment on above:Vitamin D Status 25-OH Vitamin D: Deficiency: <20 ng/mL Insufficiency: 20 - 29 ng/mL Optimal: > or = 30 ng/mL For 25-OH Vitamin D testing on patients on D2-supplementation and patients for whom quantitation of D2 and D3 fractions is required, the QuestAssureD(TM) 25-OH VIT D, (D2,D3), LC/MS/MS is recommended: order code 82548 (patients >2yrs). See Note 1 Note 1 For additional information, please refer to http://education.TellMi.[employer]/faq/FJC147 (This link is being provided for informational/ educational purposes only.) Interpretation and review of laboratory resultsAbnormalUniversity Hospitals of ClevelandCBC (H/H, RBC, INDICES, WBC, PLT)on 63-13-1449Kumovxtqnkw distribution width (RBC) [Ratio]12.3 %Rtmdaw09.0-15.0Quest DiagnosticsComment on above: Performed By: #### 7600, 64401, 03778, 927, 175, #### [facility] [place] [address] Sales Office Manager: Brandon Camara MDHematocrit (Bld) [Volume fraction]38.8 %Normal 35.0-45.0Quest DiagnosticsComment on above:Performed By: #### 7600, 85303, 90378, 927, 175, #### [facility] [place] [address] Sales Office Manager: Brandon Camara MDHemoglobin (Bld) [Mass/Vol]12.7 g/dLNormal 11.7-15.5Quest DiagnosticsComment on above:Performed By: #### 7600, 53164, 19436, 927, 175, #### [facility] [place] [address] Sales Office Manager: Brandon Camara MDMCH (RBC) [Entitic mass]28.4 glHurncx33.0-33.0 Quest DiagnosticsComment on above:Performed By: #### 7600, 33311, 40163, 927, 175, #### [facility] [place] [address] Sales Office Manager: Brandon DOTYCHC (RBC) [Mass/Vol]32.7 g/jQKuevdi22.0-36.0 [facility] DiagnosticsComment on above:Result Comment: For adults, a slight decrease in the calculated MCHC value (in the range of 30 to 32 g/dL) is most likely not clinically significant; however, it should be interpreted with caution in correlation with other red cell parameters and the patient's clinical condition.Performed By: #### 7600, 30883, 41189, 927, 1759, #### [facility] of [place] [address], [address] [place] [address] Sales Office Manager: Brandon Camara MDMCV (RBC) [Entitic vol]86.8 hUWeprss35.0-100.0 Quest DiagnosticsComment on above:Performed By: #### 7600, 63978, 43371, 927, 175, #### [facility] of [place] [address] , [address] [place] [address] Sales Office Manager: Brandon Camara MDPlatelet mean volume (Bld) [Entitic vol]9.0 fL Normal7.5-12.5Quest DiagnosticsComment on above:Performed By: #### 7600, 42636, 07989, 927, 175, #### [facility] of [place] [address], [address] [place] [address] Sales Office Manager: Brandon Camara MDPlatelets (Bld) [#/Vol]260 10*3/uLNormal 140-400Quest DiagnosticsComment on above:Performed By: #### 7600, 01249, 81493, 927, 175, 54247 #### [facility] of [place] [address] , [address] [place] [address] Sales Office Manager: rBandon Camara MDRBC (Bld) [#/Vol]4.47 10*6/uLNormal3.80-5.10 Quest DiagnosticsComment on above:Performed By: #### 7600, 22021, 26366, 927, 175, #### [facility] of [address], [address] [place] [address] Sales Office Manager: Brandon Camara MDWBC (Bld) [#/Vol]5.5 10*3/uLNormal3.8-10.8 Quest DiagnosticsComment on above:Performed By: #### 7600, 07939, 40197, 927, 175, 25847 #### [facility] [address], [address] [place] [address] Sales Office Manager: Brandon Camara MDCBC panel Auto (Bld)on 45-16-7918Vvxniceysps distribution width (RBC) [Ratio]12.3 %11.0 - 15.0 %[facility] Medical CenterHematocrit (Bld) [Volume fraction]38.8 %35.0 - 45.0 %[facility] Medical CenterHemoglobin (Bld) [Mass/Vol]12.7 g/dL11.7 - 15.5 g/dL [facility] HospitalH (RBC) [Entitic mass]28.4 pg27.0 - 33.0 pg [facility] HospitalHC (RBC) [Mass/Vol]32.7 g/dL32.0 - 36.0 g/dL [facility] Medical CenterComment on above:For adults, a slight decrease in the calculated MCHC value (in the range of 30 to 32 g/dL) is most likely not clinically significant; however, it should be interpreted with caution in correlation with other red cell parameters and the patient's clinical condition. MCV (RBC) [Entitic vol]86.8 fL80.0 - 100.0 [facility] Platelet mean volume (Bld) [Entitic vol]9 fL7.5 - 12.5 [facility] HospitalPlatelets (Bld) [#/Vol]260 10*3/[facility], IncRBC (Bld) [#/Vol]4.47 10*6/[facility], IncWBC (Bld) [#/Vol]5.5 10*3/[facility], IncCOMPREHENSIVE METABOLIC PANEL W/ANION GAPon 68-35-4776Wvmkmpo [Mass/Vol]4.8 g/dLNormal3.6-5.1Quest DiagnosticsComment on above:Performed By: #### 7600, 75878, 11156, 927, 1759, 56614 #### [facility] [address], [address] [place] [address] Sales Office Manager: Brandon Camara MDALP [Catalytic activity/Vol]60 U/FTxdfci12-689 Quest DiagnosticsComment on above:Performed By: #### 7600, 38873, 85213, 927, 175, #### [facility] of [place] [address] Sales Office Manager: Brandon Camara MDALT [Catalytic activity/Vol]14 U/LNormal6-29 Quest DiagnosticsComment on above:Performed By: #### 7600, 52500, 94414, 92, 1758, #### [facility] of [place] [address] Sales Office Manager: Brandon Camara MDAST [Catalytic activity/Vol]12 U/VFfxnaq64-97 Quest DiagnosticsComment on above:Performed By: #### 7600, 36510, 56432, 92, 1758, #### [facility] of [place] [address] Sales Office Manager: Brandon Camara MDBilirubin [Mass/Vol]0.4 mg/dLNormal0.2-1.2 Quest DiagnosticsComment on above:Performed By: #### 7600, 56451, 46233, 92, 1758, #### [facility] [place] [address] Sales Office Manager: Brandon Camara MDCalcium [Mass/Vol]9.6 mg/dLNormal8.6-10.2Quest DiagnosticsComment on above:Performed By: #### 7600, 27455, 30786, 927, 175, #### [facility] of [place] [address] Sales Office Manager: Brandon Camara MDChloride [Moles/Vol]102 mmol/OWevhsy62-320 Quest DiagnosticsComment on above:Performed By: #### 7600, 37042, 16997, 92, 175, #### [facility] of [address], [address] [place], [place] [address] Sales Office Manager: Brandon Camara MDCO2 [Moles/Vol]28 mmol/UJxzakm98-01Jymen DiagnosticsComment on above:Performed By: #### 7600, 79982, 20945, 927, 175, 15466 #### [facility] of [address], [address] [place] [address] Sales Office Manager: Brandon MOREIRAreatinine [Mass/Vol]0.86 mg/dLNormal0.50-0.97 Quest DiagnosticsComment on above:Performed By: #### 7600, 68886, 53054, 927, 175, #### [facility] of [address], [address] [place], [place] [address] Sales Office Manager: Brandon Camara MDELECTROLYTE BALANCE7 mmol/L (calc)Normal7-17 Quest DiagnosticsComment on above:Performed By: #### 7600, 97249, 05215, 927, 175, #### [facility] of [place] [address] Sales Office Manager: Brandon Camara MDGFR/1.73 sq M.predicted among non-blacks MDRD (S/P/Bld) [Vol rate/Area]93 mL/min/{1.73_m2}Normal> OR = 60[facility] Comment on above:Performed By: #### 7600, 71123, 28031, 927, 175, #### [place] [address] Sales Office Manager: Brandon Camara MDGlucose [Mass/Vol]90 mg/uVCbmrwu33-28Vpqac DiagnosticsComment on above:Result Comment: Fasting reference intervalPerformed By: #### 7600, 41743, 18996, 927, 175, 36582 #### [facility] of [address] Sales Office Manager: Brandon Camara MDPotassium [Moles/Vol]4.5 mmol/LNormal3.5-5.3 Quest DiagnosticsComment on above:Performed By: #### 7600, 99789, 66189, 927, 175, 75581 #### [facility] of [place] [address] Sales Office Manager: Brandon Camara MDProtein [Mass/Vol]7.4 g/dLNormal6.1-8.1Quest DiagnosticsComment on above:Performed By: #### 7600, 09880, 78152, 927, 175, 90891 #### [facility] [place] [address] Sales Office Manager: Brandon Camara MDSodium [Moles/Vol]137 mmol/CFmrybb425-096Tpomv DiagnosticsComment on above:Performed By: #### 7600, 06443, 40846, 927, 175, 06900 #### [facility] [place] [address] Sales Office Manager: Brandon Camara MDUrea nitrogen [Mass/Vol]7 mg/dLNormal7-25Quest DiagnosticsComment on above:Performed By: #### 7600, 12566, 06104, 927, 175, 60601 #### [facility] [place] [address] Sales Office Manager: Brandon Camara MDComprehensive metabolic 2000 panelon 73-35-6299Huqztil [Mass/Vol]4.8 g/dL3.6 - 5.1 g/dLUnTriHealth Bethesda Butler HospitalALP [Catalytic activity/Vol]60 U/L31 - 125 U/[facility] HospitalALT [Catalytic activity/Vol]14 U/L6 - 29 U/[facility] HospitalAnion gap [Moles/Vol]7 mmol/[facility] HospitalAST [Catalytic activity/Vol]12 U/L10 - 30 U/[facility] Bilirubin [Mass/Vol]0.4 mg/dL0.2 - 1.2 mg/dLUnTriHealth Bethesda Butler Hospital Calcium [Mass/Vol]9.6 mg/dL8.6 - 10.2 mg/dLUnTriHealth Bethesda Butler Hospital Chloride [Moles/Vol]102 mmol/L98 - 110 mmol/[facility] CO2 [Moles/Vol]28 mmol/L20 - 32 mmol/[facility] Creatinine [Mass/Vol]0.86 mg/dL0.50 - 0.97 mg/dLUnTriHealth Bethesda Butler HospitalGFR/1.73 sq M.predicted among non-blacks MDRD (S/P/Bld) [Vol rate/Area] 93 mL/min/{1.73_m2}> OR = 60 mL/min/1.20j5HaqbhygaffTriHealth Bethesda Butler Hospital Glucose [Mass/Vol]90 mg/dL65 - 99 mg/dLUnTriHealth Bethesda Butler HospitalComment on above: Fasting reference interval Potassium [Moles/Vol]4.5 mmol/L3.5 - 5.3 mmol/[facility] Protein [Mass/Vol]7.4 g/dL6.1 - 8.1 g/dLUnTriHealth Bethesda Butler HospitalSodium [Moles/Vol]137 mmol/L135 - 146 mmol/[facility]'s HospitalUrea nitrogen [Mass/Vol]7 mg/dL7 - 25 mg/dLUnTriHealth Bethesda Butler HospitalLIPID PANEL, STANDARDon 19-61-0971Lbfcpsfwrgw [Mass/Vol]167 mg/dLNormal<200Quest DiagnosticsComment on above:Order Comment: FASTING:YES FASTING: YESPerformed By: #### 7600, 58994, 46851, 927, 1759, 42943 #### [facility] [place] [address] [facility], [address] [place] [address] Sales Office Manager: Brandon Camara MDCholesterol in HDL [Mass/Vol]52 mg/dLNormal> OR = 50Quest DiagnosticsComment on above:Order Comment: FASTING:YES FASTING: YESPerformed By: #### 8460, 39891, 71317, 927, 1759, 28626 #### [facility] [address] [place] [address] Sales Office Manager: Brandon MOREIRAholesterol in LDL [Mass/Vol]95 mg/dLNormal [facility] DiagnosticsComment on above:Order Comment: FASTING:YES FASTING: YESResult Comment: Reference range: <100 Desirable range <100 mg/dL for primary prevention; <70 mg/dL for patients with CHD or diabetic patients with > or = 2 CHD risk factors. LDL-C is now calculated using the Dean calculation, which is a validated novel method providing better accuracy than the Friedewald equation in the estimation of LDL-C. Tres RODRIGEZ et al. STEPHANIE. 2013;310(19): 6365-5045 (http://education.TellMi.[employer]/faq/DWC341)Performed By: #### 7600, 82914, 08261, 927, 1758, 43700 #### [facility] [place] [address] Sales Office Manager: Brandon MOREIRAholesterol.total/Cholesterol in HDL [Mass ratio]3.2 {ratio}Normal<5.0Quest DiagnosticsComment on above:Order Comment: FASTING:YES FASTING: YESPerformed By: #### 7600, 61317, 78188, 927, 1756, 79004 #### [facility] [place] [address] Sales Office Manager: Brandon Camara MDNON HDL YBAWQOWJMIZ441 mg/dL (calc)Normal<130 [facility] DiagnosticsComment on above:Order Comment: FASTING:YES FASTING: YESResult Comment: For patients with diabetes plus 1 major ASCVD risk factor, treating to a non-HDL-C goal of <100 mg/dL (LDL-C of <70 mg/dL) is considered a therapeutic option.Performed By: #### 7600, 52591, 82576, 927, 1757, 39667 #### [facility] [place] [address] Sales Office Manager: Brandon Camara MDTriglyceride [Mass/Vol]103 mg/dLNormal<150 [facility] DiagnosticsComment on above:Order Comment: FASTING:YES FASTING: YESPerformed By: #### 5680, 57977, 31834, 896, 175, 27778 #### [facility] [place] [address] [facility], [address] [place] [address] Sales Office Manager: Brandon Camara MDLipid 1996 panelon 25-04-5931Laksrewtzmk [Mass/Vol]167 mg/dLNINF - 200 mg/dLUnTriHealth Bethesda Butler HospitalCholesterol in HDL [Mass/Vol]52 mg/dL> OR = 50UnTriHealth Bethesda Butler HospitalCholesterol in LDL [Mass/Vol]95 mg/dLmg/dL (calc)[facility] CenterComment on above:Reference range: <100 Desirable range <100 mg/dL for primary prevention; <70 mg/dL for patients with CHD or diabetic patients with > or = 2 CHD risk factors. LDL-C is now calculated using the Dean calculation, which is a validated novel method providing better accuracy than the Friedewald equation in the estimation of LDL-C. Tres RODRIGEZ et al. STEPHANIE. 2013;310(19): 2003-2760 (http://education.TellMi.[employer]/faq/GZU247) Cholesterol non HDL [Mass/Vol]115 mg/dLNIMercy Health Clermont Hospital Comment on above:For patients with diabetes plus 1 major ASCVD risk factor, treating to a non-HDL-C goal of <100 mg/dL (LDL-C of <70 mg/dL) is considered a therapeutic option. Cholesterol.total/Cholesterol in HDL [Mass ratio]3.2 {ratio}NINMercy HospitalTriglyceride [Mass/Vol]103 mg/dLNINF - 150 mg/dLUnTriHealth Bethesda Butler HospitalNo Panel Informationon 56-26-5397QEXRNOC:YES FASTING: YESQUEST DIAGNOSTICS-SPROULUnTriHealth Bethesda Butler HospitalTSH W/REFLEX TO FT4on 97-52-5672YQA W/REFLEX TO FT42.63 mIU/LNormalQuest [facility] Comment on above:Result Comment: Reference Range > or = 20 Years 0.40-4.50 Ranges First trimester 0.26-2.66 Second trimester 0.55-2.73 Third trimester 0.43-2.91Performed By: #### 7600, 36235, 48414, 927, 1759, 88166 #### [facility] [address], [address] [place], [place] [address] Sales Office Manager: Brandon Camara MDPROVIDENCE SACRED [facility]ART [facility] with reflex to Free T4 if abnormalon 40-25-9676NFB Qn2.63 m[IU]/LmIU/[facility] HospitalComment on above:Reference Range > or = 20 Years 0.40-4.50 Ranges First trimester 0.26-2.66 Second trimester 0.55-2.73 Third trimester 0.43-2.91 VITAMIN B12on 46-53-0235Oyihxahln (Vitamin B12) [Mass/Vol]402 pg/mLNormal 200-1100Quest DiagnosticsComment on above:Performed By: #### 7600, 34772, 93044, 927, 175, 41890 #### [facility] [address], [address] [place], [place] [address] Sales Office Manager: Brandon Camara MDVITAMIN D,25-OH,TOTAL,IAon 39-99-8698QQNLMUL D,25-OH,TOTAL,IA26 ng/xMVws50-547Jcohv DiagnosticsComment on above:Result Comment: Vitamin D Status 25-OH Vitamin D: Deficiency: <20 ng/mL Insufficiency: 20 - 29 ng/mL Optimal: > or = 30 ng/mL For 25-OH Vitamin D testing on patients on D2-supplementation and patients for whom quantitation of D2 and D3 fractions is required, the QuestAssureD(TM) 25-OH VIT D, (D2,D3), LC/MS/MS is recommended: order code 93465 (patients >2yrs). See Note 1 Note 1 For additional information, please refer to http://education.TellMi.[employer]/faq/ZIM477 (This link is being provided for informational/ educational purposes only.)Performed By: #### 7600, 19337, 86503, 927, 1759, 32891 #### [facility] [address], [address] [place] [address] Sales Office Manager: Brandon Camara MDVitamin B12on 75-93-0041Fdhszeygp (Vitamin B12) [Mass/Vol]402 pg/mL200 - 1100 pg/mLUpper [facility] Center Quantiferon-TB Plus (Client Incubated)on 56-45-2296Uzswv interferon background IA Qn (Bld)0.01 International_Unit/mLInvalid Interpretation St. Vincent HospitalComment on above:Performed By: #### [id number] #### [facility] [address] [place] [address]. tuberculosis stim IFN-g by CD4+ CD8+ T-cells corrected for background Qn (Bld)0.02 International_Unit/mLInvalid Interpretation CodeHocking Valley Community HospitalComment on above:Performed By: #### [id number] #### [facility] [address] [place] [address]. tuberculosis stim IFN-g by CD4+ T-cells corrected for background Qn (Bld)0.03 International_Unit/mLInvalid Interpretation [facility]. Vincent HospitalComment on above:Performed By: #### [id number] #### [facility] [address] [place] [address]. tuberculosis stim IFN-g Ql (Bld) [Interp]NegativeInvalid Interpretation CodeNegativeHocking Valley Community HospitalComment on above:Result Comment: No response to M tuberculosis antigens [...] interferon gamma. Chemiluminescence immunoassay methodology Performed at: [facility] [id number] PhD Leeanne Moyaformed By: #### [id number] #### [facility] [address] [place] [address] 18761Lzqmdyx stimulated gamma interferon corrected for background Qn (Bld)>10.00Invalid Interpretation [facility] HospitalComment on above:Performed By: #### [id number] #### Jacques [facility] [address] [place] [address] 46346Upgmhfm comment (Unsp spec) [Interp]CommentInvalid Interpretation [facility]. [facility] HospitalComment on above:Result Comment: QuantiFERON-TB Gold Plus is a qualitative indirect test for M tuberculosis infection (including disease) and is intended for use in conjunction with risk assessment, radiography, and other medical and diagnostic evaluations. The QuantiFERON-TB Gold Plus result is determined by subtracting the Nil value from either TB antigen (Ag) value. The Mitogen tube serves as a control for the test.Performed By: #### [id number] #### Hanna [facility] [address] [place] [address] 21309Rxi Bs Abon 04-97-7086UMT surface Ab Ql (S)ReactiveInvalid Interpretation [facility]. [facility] HospitalComment on above:Result Comment: Non Reactive: Not immune to HBV infection. Equivocal: Unable to determine if anti-HBs is present at levels consistent with immunity. Reactive: Anti-HBs concentration detected at greater than 10 mIU/mL. Individual is considered to be immune to infection with HBV. Performed at: [address] [id number] PhD Leeanne Moyaformed By: #### [id number] #### [facility]anna [facility] [address] [place] [address] 43615Rsohhad/Mumps/Rubella Immunityon 92-01-8167WbR IgG IA Qn (S) 206.0 A unit/mLInvalid Interpretation CodeImmune >16.4Fisher [facility] Orthopa[facility] InstituteComment on above:Result Comment: Negative <13.5 Equivocal 13.5 - 16.4 Positive >16.4 Presence of antibodies to Rubeola is presumptive evidence of immunity except when acute infection is suspected.Performed By: #### [id number] #### [facility] [address] [place] [address] 06161KiB IgG IA Qn (S)38.5 A unit/mLInvalid Interpretation Code Immune >10.9H[facility] Valley Community HospitalComment on above:Result Comment: Negative <9.0 Equivocal 9.0 - 10.9 Positive >10.9 A positive result generally indicates past exposure to Mumps virus or previous vaccination. Performed at: [address] [id number] PhD Leeanne GarciaPerformed By: #### [id number] #### [facility] [address] [place] [address] 69425Mphiypa virus IgG Qn (S)1.07 [IU]/mLInvalid Interpretation Code Immune >0.99[facility] Community HospitalComment on above:Result Comment: Non- immune <0.90 Equivocal 0.90 - 0.99 Immune >0.99Performed By: #### [id number] #### [facility] [address] [place] [address] 86513Kjxcn IgGon 78-46-5591PIX IgG IA Qn (S)1518Invalid Interpretation CodeImmune >165H[facility] Valley Community HospitalComment on above:Result Comment: Negative <135 Equivocal 135 - 165 Positive >165 A positive result generally indicates exposure to the pathogen or administration of specific immunoglobulins, but it is not indication of active infection or stage of disease. Performed at: [facility] [address] [place], [place] [id number] PhD Leeanne GarciaPerformed By: #### [id number] #### [facility] [address] [place] [address] 40327Bivvxnw Formson 83-85-0351Ndhfybo Forms 10[id number]#1.00OTGTIFFProMedica Flower HospitalED Clinical Summaryon 29-49-8917PH [facility] [address] [place], [place] [id number] Clinical Summary PERSON INFORMATION Name: PRINCESS GUERRERO Age: 28 Years Sex: FEMALE : 1995 MRN: Acct#: Visit Reason: Medical screening exam; OTTERBEIN PHYSICAL Arrival: 12/15/2023 11:27:18 Discharge: 12/15/2023 11:57:00 LOS: 000 00:30 Check In: 12/15/2023 11:27:18 Checkout: 12/15/2023 11:57:00 Address: [address] [place] [address] PCP: Provider, None PROVIDER INFORMATION Provider Role [...] blood pressure. With: Address: When: None Provider [address] [place] [address] DIAGNOSIS: Elevated blood pressure reading; Physical exam Patient Understands: Yes - Patient/family/caregiver verbalizes understanding of instructions given Comment:[facility] Flower HospitalED Patient Summary 45-80-9021AF Patient Summary [facility] ? Urgent Care [address] [place], [place] [id number] PATIENT DISCHARGE INSTRUCTIONS Patient Information Name: PRINCESS GUERRERO Age: 28 Years Date of : 1995 Reason For Visit: Medical screening exam; ANNETTE PHYSICAL Arrival Time: 12/15/2023 11:27:18 Primary Care Physician: Provider, None Attending Physician: TARAS FAUSTIN Comment: Patient Education With: Address: When: Your primary provider in your hometown Within 2 to 4 days Comments: Follow-up for reevaluation of your blood pressure. With: Address: When: None Provider [address] [place] [address] Hypertension, Adult High blood pressure (hypertension) is [...] are some conditions that result in high bloodpressure. What increases the risk? Certain factors may make you more likely to develop high blood pressure. Some of these risk factorsare under your control, including: ? Smoking. ? [...] on the floor. The cuff of the bloodpressure monitor will be placed directly against the [...] as fish, chicken wit (more content not included)...[facility] Flower HospitalUrgent Care Note- Provideron 76-99-5218Ycemgj Care Note- ProviderPatient: PRINCESS UGERRERO Age: 28 years Sex: FEMALE : 1995 [...] - pharynx pink and moist. NECK: -Supple (cira-pg-zzylq): non-tender. CARD: -Rate and rhythm: Regular RESP: [...] Plan Assessment and Plan: Diagnosis: Physical exam (PCV07-KP Z00.00), Elevated blood pressure reading (EJB59-UR R03.0). Cleared for employment [Electronically Signed on: 12/15/2023 11:52 EDT] TARAS FAUSTIN [Verified on: 12/15/2023 11:52 EDT] TARAS FAUSTIN [facility] Rec[facility] 41-11-3347XlsbzhProvidence [facility] ? [facility] [address] [place], [place] [id number] PATIENT DISCHARGE INSTRUCTIONS Patient Information Name: PRINCESS GUERRERO Age: 28 Years Date of : 1995 [facility]: [id number] Reason For Visit: OTTERBEIN PHYSICAL Arrival Time: [...] blood pressure. With: Address: When: None Provider [address] [place] [address] Medication Information: The exam and treatment you received today in the [facility] were for an urgent problem and are not intended as complete care. It is important for you to follow up with a doctor, nurse practitioner, or physician?s respiratory care assistant for ongoing care. If your symptoms [...] so we can reach you if necessary. [facility] has provided you with a complete list of medications post discharge. Please inform your stripping cutter and winder/provider of your visit and for further instruction [...] are some conditions that result in high bloodpressure. What increases the risk? Certain factors may make you more likely to develop high blood pressure. Some of these risk factorsare under your control, including: ? Smoking. ? Not getting enough exercise or physical activity. ? Being overweight. ? Having too much fat, sugar, (more content not included)...[facility] 47-71-6140NYfknppqp: BS24-10 Received: 08/04/23 Status: LAZARA Lyn Num: [id number] Spec Type: Surgical Subm Dr: Willis Chen Tissues: A Placenta - 3rd Trimester (Greater than 28 weeks) (PLACENTA) Procedures: HE/3, Gross/Micro L5 Age/ Patient Sex Location Account Attending Physician Princess Cantu 27/F LABELL [id number] Willis Chen SPEC NUM: [id number] RECD: 08/04/23 STATUS: LAZARA LYN NUM: [id number] JOSE: 08/04/[address]: Willis Chen ENTERED: 08/04/23 [facility] DR: Giselle,Lab SPEC TYPE: Surgical DEPT: [...] parenchyma up to 3.1 cm in thickness. School Psychologist sections are submitted in 3 cassettes as follows: A1 - membranes, umbilical cord, and decidua basalis A2 - Central placenta full-thickness A3 - Peripheral placenta, full-thickness Specimen: [id number] Received: 08/04/23 Status: LAZARA Lyn Num: [id number] Spec Type: Surgical Subm Dr: Willis Chen Tissues: A Placenta - 3rd Trimester (Greater than 28 weeks) (PLACENTA) Procedures: HE/3, Gross/Micro L5 Patient: Princess Cantu [id number] (Continued) Specimen: [id number] Received: 08/04/23 (Continued) Signed (signature on file) Juliet Sykes MD 08/08/232229 Specimen: [id number] Received: 08/04/23 Status: LAZARA Lyn Num: [id number] Spec Type: Surgical Subm Dr: Willis Chen Tissues: A Placenta - 3rd Trimester (Greater than 28 weeks) (PLACENTA) Procedures: HE/3, Gross/Micro L5 Patient: CantuPrincess [id number] (Continued) Specimen: [id number] Received: 08/04/23 (Continued) CPT Codes 53973 Specimen: [id number] Received: 08/04/23 Status: LAZARA Lyn Num: [id number] Spec Type: Surgical Subm Dr: Willis Chen Tissues: A Placenta - 3rd Trimester (Greater than 28 weeks) (PLACENTA) Procedures: HE/3, Gross/Micro L5 Patient: Princess Cantu [id number] (Continued) Signed (signature on file) Juliet Sykes MD 08/08/[address] [place], [place] [address]US OB BPP W NON-STRESS on 70-74-5230[place] [address] Ultrasound Report Signed Patient: PRINCESS CANTU MR#: [id number] : 1995 Acct:[id number] Age/Sex: 27 / F ADM Date: 07/31/23 Loc: US Attending Dr: Willis Chen D.O. Ordering Physician: Willis Chen D.O. Date of Service: 07/31/23 Procedure(s): US OB BPP w non-stress Accession Number(s): [id number] cc: Willis Chen D.O.; Physician,Non-Staff Jake [address] [address] Patient Name: PRINCESS CANTU MRN: [id number] date: 1995 Sex: F Assigned Patient Location: US Current Patient Location: US Accession/Order Number: [id number] Exam Date: 07/31/2023 11:04 Report Date: 08/03/2023 07:18 At the request of: WILLIS CHEN Procedure: US OB BPP w non-stress [...] profile score: 8.0 Electronically authenticated by: HAYLIE HOUSER Date: 08/03/2023 07:18 Dictated By: Haylie Houser M.D. Signed By: 08/03/23719 DD/ 7 TD/TT: Manager House:TBHRadiology, Radiologist, MD - 09/22/2023 [place] [address] Ultrasound Report Signed Patient: PRINCESS CANTU MR#: [id number] : 1995 Acct:[id number] Age/Sex: 27 / F ADM Date: 07/31/23 Loc: US Attending Dr: Willis Chen D.O. Ordering Physician: Willis Chen D.O. Date of Service: 07/31/23 Procedure(s): US OB BPP w non-stress Accession Number(s): [id number] cc: Willis Chen D.O.; Physician,Non-Staff Jake The [address] [address] Patient Name: PRINCESS CANTU MRN: [id number] date: 1995 Sex: F Assigned Patient Location: US Current Patient Location: US Accession/Order Number: [id number] Exam Date: 07/31/2023 11:04 Report Date: 08/03/2023 07:18 At the request of: WILLIS CHEN Procedure: US OB BPP w non-stress [...] profile score: 8.0 Electronically authenticated by: HAYLIE HOUSER Date: 08/03/2023 07:18 Dictated By: Haylie Houser M.D. Signed By: 08/03/23719 DD/ 7 TD/TT: Manager House: JOSY HealthcareRadiology Study observation (narrative)NOMS HealthcareUS OB BPP W NON-STRESSOrdered By: Radiologist Radiology on 03-55-8316DZSI [employer] Work Phone: US OB BPP W NON-STRESSon [phone] [address] Ultrasound Report Signed Patient: PRINCESS CANTU MR#: [id number] : 1995 Acct:[id number] Age/Sex: 27 / F ADM Date: 07/24/23 Loc: US Attending Dr: Willis Chen D.O. Ordering Physician: Willis Chen D.O. Date of Service: 07/24/23 Procedure(s): US OB BPP w non-stress Accession Number(s): [id number] cc: Willis Chen D.O.; Physician,Non-Staff M.No The [address] [address] Patient Name: PRINCESS CANTU MRN: [id number] date: 1995 Sex: F Assigned Patient Location: [facility] Current Patient Location: Accession/Order Number: [id number] Exam Date: 07/24/2023 08:19 Report Date: 07/26/2023 07:09 At the request of: WILLIS CHEN Procedure: US OB BPP w non-stress [...] profile score: 8.0 Electronically authenticated by: HAYLIE HOUSER Date: 07/26/2023 07:09 Dictated By: Haylie Houser M.D. Signed By: 07/26/23711 DD/ 8 TD/TT: Manager House:LIZETHHRadiology, Radiologist, - 09/22/2023 [place] [address] Ultrasound Report Signed Patient: PRINCESS CANTU MR#: [id number] : 1995 Acct:[id number] Age/Sex: 27 / F ADM Date: 07/24/23 Loc: US Attending Dr: Willis Chen D.O. Ordering Physician: Willis Chen D.O. Date of Service: 07/24/23 Procedure(s): US OB BPP w non-stress Accession Number(s): [id number] cc: Willis Chen D.O.; Physician,Non-Staff Jake The [address] [id number] Patient Name: PRINCESS CANTU MRN: [id number] date: 1995 Sex: F Assigned Patient Location: [facility] Current Patient Location: Accession/Order Number: [id number] Exam Date: 07/24/2023 08:19 Report Date: 07/26/2023 07:09 At the request of: WILLIS CHEN Procedure: US OB BPP w non-stress [...] profile score: 8.0 Electronically authenticated by: HAYLIE HOUSER Date: 07/26/2023 07:09 Dictated By: Haylie Houser M.D. Signed By: 07/26/23711 DD/ 8 TD/TT: Manager House: JOSY HealthcareRadiology Study observation (narrative)NOM HealthcareUS OB BPP W NON-STRESSOrdered By: Radiologist Radiology on 17-53-8192VARN [employer] Work Phone: US OB BPP W NON-STRESSon [phone] [address] Ultrasound Report Signed Patient: PRINCESS CANTU MR#: [id number] : 1995 Acct:[id number] Age/Sex: 27 / F ADM Date: 07/17/23 Loc: US Attending Dr: Willis Chen D.O. Ordering Physician: Willis Chen D.O. Date of Service: 07/17/23 Procedure(s): US OB BPP w non-stress Accession Number(s): [id number] cc: Willis Chen D.O.; Physician,Non-Staff MCheryl The [place] [address] Patient Name: PRINCESS CANTU MRN: [id number] date: 1995 Sex: F Assigned Patient Location: US Current Patient Location: Accession/Order Number: [id number] Exam Date: 07/17/2023 11:20 Report Date: 07/20/2023 07:11 At the request of: WILLIS CHEN Procedure: US OB BPP w non-stress [...] profile score: 8.0 Electronically authenticated by: HAYLIE HOUSER Date: 07/20/2023 07:11 Dictated By: Haylie Houser M.D. Signed By: 07/20/23713 DD/ 0 TD/TT: Manager House:LIZETHHRadiologchristina, Radiologist, - 09/22/2023 [place] [address] Ultrasound Report Signed Patient: PRINCESS CANTU MR#: [id number] : 1995 Acct:[id number] Age/Sex: 27 / F ADM Date: 07/17/23 Loc: US Attending Dr: Willis Chen D.O. Ordering Physician: Willis Chen D.O. Date of Service: 07/17/23 Procedure(s): US OB BPP w non-stress Accession Number(s): [id number] cc: Willis Chen D.O.; Physician,Non-Staff MCheryl The [place] [address] Patient Name: PRINCESS CANTU MRN: [id number] date: 1995 Sex: F Assigned Patient Location: US Current Patient Location: Accession/Order Number: [id number] Exam Date: 07/17/2023 11:20 Report Date: 07/20/2023 07:11 At the request of: WILLIS CHEN Procedure: US OB BPP w non-stress [...] profile score: 8.0 Electronically authenticated by: HAYLIE HOUSER Date: 07/20/2023 07:11 Dictated By: Haylie Houser M.D. Signed By: 07/20/23713 DD/ 0 TD/TT: Manager House: JOSY HealthcareRadiology Study observation (narrative)NOMS HealthcareUS OB BPP W NON-STRESSOrdered By: Radiologist Radiology on 21-18-0136XDRN [employer] Work Phone: US OB BPP W NON-STRESSon [phone] [address] Ultrasound Report Signed Patient: PRINCESS CANTU MR#: [id number] : 1995 Acct:[id number] Age/Sex: 27 / F ADM Date: 07/10/23 Loc: [facility] Attending Dr: Willis Chen D.O. Ordering Physician: Willis Chen D.O. Date of Service: 07/10/23 Procedure(s): US OB BPP w non-stress Accession Number(s): [id number] cc: Willis Chen D.O.; Physician,Non-Staff M.DLima The [place] [address] Patient Name: PRINCESS CANTU MRN: [id number] date: 1995 Sex: F Assigned Patient Location: [facility] Current Patient Location: Accession/Order Number: [id number] Exam Date: 07/10/2023 14:31 Report Date: 07/11/2023 00:18 At the request of: WILLIS CHEN Procedure: US OB BPP w non-stress [...] biophysical profile score 8.0. Electronically authenticated by: AMERICA DRAPER Date: 07/11/2023 00:18 Dictated By: America Draper M.D. Signed By: 07/11/2319 DD/ TD/TT: Manager House:TBHRadiology, Radiologist, MD - 07/11/2023 [place] [address] Ultrasound Report Signed Patient: PRINCESS CANTU MR#: [id number] : 1995 Acct:[id number] Age/Sex: 27 / F ADM Date: 07/10/23 Loc: FBCO Attending Dr: Willis Chen D.O. Ordering Physician: Willis Chen D.O. Date of Service: 07/10/23 Procedure(s): US OB BPP w non-stress Accession Number(s): [id number] cc: Willis Chen D.O.; Physician,Non-Staff Jake The [address] [address] Patient Name: PRINCESS CANTU MRN: [facility]:[id number] date: 1995 Sex: F Assigned Patient Location: [facility] Current Patient Location: Accession/Order Number: [id number] Exam Date: 07/10/2023 14:31 Report Date: 07/11/2023 00:18 At the request of: WILLIS CHEN Procedure: US OB BPP w non-stress [...] biophysical profile score 8.0. Electronically authenticated by: AMERICA DRAPER Date: 07/11/2023 00:18 Dictated By: America Draper M.D. Signed By: 07/11/2319 DD/ TD/TT: Manager House: JOSY HealthcareRadiology Study observation (narrative)NOMS HealthcareUS OB BPP W NON-STRESSOrdered By: Radiologist Radiology on 05-88-9210DZPF Healthcare Work Phone: US OB GROWTHon [phone] [address] Ultrasound Report Signed Patient: PRINCESS CANTU MR#: [id number] : 1995 Acct:[id number] Age/Sex: 27 / F ADM Date: 07/10/23 Loc: FBCO Attending Dr: Willis Chen D.O. Ordering Physician: Willis Chen D.O. Date of Service: 07/10/23 Procedure(s): US OB growth Accession Number(s): [id number] cc: Willis Chen D.O.; Physician,Non-Staff Jake The [address] [address] Patient Name: PRINCESS CANTU MRN: [facility]:[id number] date: 1995 Sex: F Assigned Patient Location: [facility] Current Patient Location: [facility] Accession/Order Number: [id number] Exam Date: 07/10/2023 14:31 Report Date: 07/11/2023 00:47 At the request of: WILLIS CHEN Procedure: US OB growth EXAMINATION: US [...] with growth detailed above. Electronically authenticated by: AMERICA DRAPER Date: 07/11/2023 00:47 Dictated By: America Draper M.D. Signed By: 07/11/2349 DD/ TD/TT: Manager House:LIZETHHRadiology, Radiologist, - 09/22/2023 [place] [address] Ultrasound Report Signed Patient: PRINCESS CANTU MR#: [id number] : 1995 Acct:[id number] Age/Sex: 27 / F ADM Date: 07/10/23 Loc: [facility] Attending Dr: Willis Chen D.O. Ordering Physician: Willis Chen D.O. Date of Service: 07/10/23 Procedure(s): US OB growth Accession Number(s): [id number] cc: Willis Chen D.O.; Physician,Non-Staff Jake The [place] [address] Patient Name: PRINCESS CANTU MRN: [id number] date: 1995 Sex: F Assigned Patient Location: [facility] Current Patient Location: [facility] Accession/Order Number: [id number] Exam Date: 07/10/2023 14:31 Report Date: 07/11/2023 00:47 At the request of: WILLIS CHEN Procedure: US OB growth EXAMINATION: US [...] with growth detailed above. Electronically authenticated by: AMERICA DRAPER Date: 07/11/2023 00:47 Dictated By: America Draper M.D. Signed By: 07/11/2349 DD/ TD/TT: Manager House: JOSY HealthcareRadiology Study observation (narrative)[facility] Medical CenterUS OB GROWTHOrdered By: Radiologist Radiology on 45-02-2892RJRU [employer] Work Phone: DH SERUMon 18-49-4557Otfwtmewwmsbjuykakvpkx (DHEA) 656 ng/aQSultdp90-588ObfOhiohealth Grady Memorial HospitalComment on above:Performed By: #### DHEA. #### [facility] [address] [place] [address] Dr. Vish Mai-MULLERIAN HORMONEon 41-48-3580Fbas-Mullerian Hormone (AMH) 4.47 ng/mLNormalOhiohealth Grady Memorial HospitalComment on above:Result Comment: For assays employing antibodies, the possibility exists for interference by heterophile antibodies in the samples.1 1.Favio Campos Interferences in Immunoassays - still a threat. Clin. Chem. 2000; 46: 7499-4135. This test was developed and its performance characteristics determined by [employer]. It has not been cleared or approved by the Food and Drug Administration. Reference Range: Females 26 - 30y: 1.03 - 11.10 Median 4.20 AMH concentrations of >= 1.06 ng/mL is correlated with a better response to ovarian stimulation, produced more retrievable oocytes and higher odds of live according to Gabi barroso al. Fertility and Sterility. 2010: 94:7670-3455. The current AMH test method correlates with [...] to diagnose or exclude an AMH-secreting ovarian tumor.Performed By: #### LBCLH #### [facility] [address] [place] [address] Dr. Vish Olivas-SULFATEon 30-45-4276NGIO-Almzfet734.0 ug/dLCritically high 84.8-378.0Ohio[facility] Grady Memorial HospitalComment on above:Performed By: #### LBCLH #### [facility] [address] [place] [address] Dr. Vish CardonaTRADIOLon 27-34-9046Bapoeqgwz46.3 pg/mLNormalOhiohealth Grady Memorial HospitalComment on above:Result Comment: Adult Female: Follicular phase 12.5 - 166.0 Ovulation phase 85.8 - 498.0 Luteal phase 43.8 - 211.0 Postmenopausal <6.0 - 54.7 1st trimester 215.0 - >4300.0 Ele ECLIA methodologyPerformed By: #### ESTRADI #### [facility] [address] [place] [address] Dr. Vish BrownFSHon 57-72-6056ETB2.1 mIU/mLNormalOhiohealth Grady Memorial HospitalComment on above:Result Comment: Adult Female: Follicular phase 3.5 - 12.5 Ovulation phase 4.7 - 21.5 Luteal phase 1.7 - 7.7 Postmenopausal 25.8 - 134.8Performed By: #### LBCFSH #### [facility] [address] [place] [address] Dr. Vihs BrownLUTEINIZING HORMONE (LH)on 18-57-8438XV2.5 mIU/mLNHarrison Community HospitalComment on above:Result Comment: Adult Female: Follicular phase 2.4 - 12.6 Ovulation phase 14.0 - 95.6 Luteal phase 1.0 - 11.4 Postmenopausal 7.7 - 58.5Performed By: #### LBCLH #### [facility] [address] [place] [address] Dr. Vish BrownPROGESTERONEon 00-61-5897Gguycqgenvva4.8 ng/mLNormalOhiohealth Grady Memorial HospitalComment on above:Result Comment: Follicular phase 0.1 - 0.9 Luteal phase 1.8 - 23.9 Ovulation phase 0.1 - 12.0 First trimester 11.0 - 44.3 Second trimester 25.4 - 83.3 Third trimester 58.7 - 214.0 Postmenopausal 0.0 - 0.1Performed By: #### PROGES #### [facility] [address] [place] [address] Dr. Vish BrownCBC AUTO DIFFon 58-13-4956TBVY #0.0 103/ulNormal0.0-0.1The Summa HealthComment on above:Performed By: #### LBCLH #### [facility] [address] [place] [address] Dr. Vish BrownBasophils/100 WBC (Bld)0.5 %Normal0.2-2.0[facility] Comment on above:Performed By: #### LBCLH #### [facility] [address] [place] [address] Dr. Vish Layton #0.3 103/ulNormal0.0-0.7The Summa HealthComment on above: Performed By: #### LBCLH #### [facility] [address] [place] [address] Dr. Vish Haqosinophils/100 WBC (Bld)4.0 %Normal0.9-7.0The [facility] Comment on above:Performed By: #### LBCLH #### [facility] [address] [place] [address] Dr. Vish Haqrythrocyte distribution width (RBC) [Ratio]12.0 %Cpthom50.0-15.0 The Summa HealthComment on above:Performed By: #### LBCLH #### [facility] [address] [place] [address] Dr. Vish BrownHematocrit (Bld) [Volume fraction]39.1 %Fhhakq58.0-48.0The [facility]oplar HospitalComment on above:Performed By: #### LBCLH #### [facility] [address] [place] [address] Dr. Vish BrownHemoglobin (Bld) [Mass/Vol]13.0 g/oDDaajvg97.0-16.0Ohio[facility] Memorial HospitalComment on above:Performed By: #### LBCLH #### [facility] Laboratory [address] [place] [address] Dr. Vish Lawson #0.02 10e3/ulNormal0.00-0.03The Summa HealthComment on above:Performed By: #### LBCLH #### [facility] [address] [place] [address] Dr. Vish Lawson %0.3 %Normal0.0-0.5The Summa HealthComment on above: Performed By: #### LBCLH #### [facility] [address] [place] [address] Dr. Vish Wallace #2.5 103/ulNormal1.2-3.8The Summa HealthComment on above:Performed By: #### LBCLH #### [facility] [address] [place] [address] Dr. Vish Barrosohocytes/100 WBC (Bld)32.4 %Mricmn52.5-60.0The Summa HealthComment on above:Performed By: #### LBCLH #### [facility] [address] [place] [address] Dr. Vish BustosUAL DIFF REQNONormalThe Summa HealthComment on above: Performed By: #### LBCLH #### [facility] [address] [place] [address] Dr. Vish Smith (RBC) [Entitic mass]29.9 bpTbramq13.7-34.0The Summa HealthComment on above:Performed By: #### LBCLH #### [facility] [address] [place] [address] Dr. Vish Smith (RBC) [Mass/Vol]33.2 g/kIIlbuue00.9-35.2The Summa HealthComment on above:Performed By: #### LBCLH #### [facility] [address] [place] [address] Dr. Vish Smith (RBC) [Entitic vol]89.9 yBUhafjj67.0-99.0The Summa HealthComment on above:Performed By: #### LBCL #### [facility] [address] [place] [address] Dr. Vish Power #0.6 103/ulNormal0.3-0.8The Summa HealthComment on above:Performed By: #### LBCL #### [facility] [address] [place] [address] Dr. Vish Vigilocytes/100 WBC (Bld)7.4 %Normal1.7-12.0The [facility] Comment on above:Performed By: #### LBCLH #### [facility] [address] [place] [address] Dr. Vish Pulliam #4.3 103/ulNormal1.4-6.5The Summa HealthComment on above:Performed By: #### LBCLH #### [facility] [address] [place] [address] Dr. Vish Lamarutrophils/100 WBC (Bld)55.4 %Eygozm50.0-75.0The Summa HealthComment on above:Performed By: #### LBCLH #### [facility] [address] [place] [address] Dr. Vish BrownPlatelet mean volume (Bld) [Entitic vol]9.0 fLCritically low 9.5-13.5The [facility] HealthComhen[facility] on above:Performed By: #### LBCLH #### [facility] [address] [place] [address] Dr. Vish BrownPLT277 103/upKiewdh361-852Yek [facility]Com[facility] on above: Performed By: #### LBCLH #### [facility] [address] [place] [address] Dr. Vish BrownRBC4.35 106/ulNormal4.20-5.40The [facility] HealthComhen[facility] on above:Performed By: #### LBCLH #### [facility] [address] [place] [address] Dr. Vish BrownWBC7.7 103/ulNormal4.0-11.0The [facility]Comhen[facility] on above: Performed By: #### LBCLH #### [facility] [address] [place] [address] Dr. Vish BrownFREE T4on 65-94-2798Xieq T4 [Mass/Vol]1.08 ng/dLNormal0.76-1.46 The [facility] on above:Performed By: #### FT4 #### [facility] [address] [place] [address] Dr. Vish BrownGLYCOHEMOGLOBIN A1Con 32-02-5653EPH RECOMMENDATIONSEE BELOWNormal The [facility] HealthComhen[facility] on above:Result Comment: ADA RECOMMENDED LIMIT 4.0 - 6.0 ADA THERAPEUTIC TARGET < 7.0 ACTION SUGGESTED > 7.0Performed By: #### A1C #### [facility] [address] [place] [address] Dr. Vish BrownGlucose [Mass/Vol]94 mg/dLNormalThHolmes County Joel Pomerene Memorial HospitalComhenry [facility] on above:Performed By: #### A1C #### [facility] [address] [place] [address] Dr. Vish BrownHbA1c (Bld) [Mass fraction]4.9 %Normal4.5-6.2The Summa HealthComment on above:Performed By: #### A1C #### [facility] [address] [place] [address] Dr. Vish BrownPREBhargav QUANT HCGon 64-70-3728WFG QUANT<1NormalThe [facility] Comment on above:Performed By: #### PREGQNT, TSH #### [facility] [address] [place] [address] Dr. Vish Lee Green Cross HospitalComment on above: Result Comment: 5-50 0.2-1 WEEK 50-500 1-2 WEEKS 100-5,000 2-3 WEEKS 500-10,000 3-4 WEEKS 1,000-50,000 4-5 WEEKS 10,000-100,000 5-6 WEEKS 15,000-200,000 6-8 WEEKS 10,000-100,000 2-3 MONTHSPerformed By: #### PREGQNT, TSH #### [facility] [address] [place] [address] Dr. Vish Boo 54-72-1159JLC5.030 uIU/mLNormal0.358-3.740Ohiohealth Grady Memorial HospitalComment on above:Performed By: #### PREGQNT, TSH #### [facility] [address] [place] [address] Dr. Vish Massey 19-49 Yearson 13-17-1478FC 19-49 YearsDiagnoses/Problems Health Maintenance/Risks Encounter for preventive health examination [...] Ordered By:Koffi Uriarte; Lipid Panel; Status:Active; Requested for:[id number]; Perform:Lab Services - Lab To Draw (Blood [...] result in injury. PRINCESS does not have afear of falling. She does not need assistance [...] alcohol, recreational drugs, or prescription drugs for non- medical reasons thismorning. Nutrition Screening: In the past month, there was not a day when I or anyone in my family went hungry because there was not enough food. Patient Education: The patient or the person with them need(s) extra help because of problems with:seeing The patient is comfortable filling out medical [...] drug use Occasional alcohol (more content not included)...NormalUH TouchworksTobacco Screening.on 69-16-5942Cmsgd depression screening vfiaganugzVtJB-RDMF-[place] Work Phone: Fall risk assessmenta) No falls within the last year VW-YRHS-KsnxKvantum Phone: Tobacco use status CPHSb) ZdDN-JVQV-WrruKvantum Phone: b-HCG SerPl-aCncon 33-30-7531SYH.beta subunit Qn m[IU]/mLNormal<5.0[facility] RehabilitationComhenry [facility] on above:Order Comment: Specimen Type: BLOOD SPECIMENOrdering Facility: [facility] Address:[address] [place], [place] [address]Result Comment: Negative Performed By: #### GCCT #### [place] [address] YRMBHTJHD VAGINOSIS AMPLIFICATIONon 49-46-7625Prldbevfbvccd crispatus+gasseri+jensenii + Gardnerella vaginalis + Atopobium vaginae rRNA HUMERA+probeQl (Vag fld)NegativeNormalNegative for bacterial vaginosisCGlenbeigh Hospital on above:Order Comment: Specimen Type: SWAB [facility] Address: [address] [place], [place] [address]Performed By: #### CVTV, BVAMP #### [facility] CLIA [id number] [address] [place], [place] [address]C. trachomatis+N. gonorrhoeae DNA HUMERA+probe Ql (Unsp spec)on 04-16-2022. trachomatis DNA HUMERA+probe Ql (Unsp spec)NegativeNormalNegative for Chlamydia trachomatis by amplificatonCGlenbeigh Hospital on above:Order Comment: Specimen Type: SWAB [facility] Address: [address] [place], [place] [address]Performed By: #### CVTV, BVAMP #### [facility] CLIA [id number] [address] [place] [address] [place]. gonorrhoeae DNA HUMERA+probe Ql (Unsp spec)NegativeNormalNegative for Neisseria gonorrhoeae by amplification [facility] on above:Order Comment: Specimen Type: SWAB [facility] Address: [address] [place], [place] [address]Performed By: #### CVTV, BVAMP #### [facility] CLIA [id number] [address] [place] [address] [place] AMERICACANDIDA / TRICHOMONAS AMPLIFICATIONon 69-25-8927NRLPAXV / TRICHOMONAS AMPLIFICATIONCANDIDA SPECIES GROUP RNA: Negative for Mitch species MITCH GLABRATA RNA: Negative for Mitch glabrata TRICH VAG AMPLIFICATION RNA: Negative for Trichomonas vaginalis by amplificationNoWright-Patterson Medical Center on above:Performed By: #### CVTV, BVAMP #### [facility] CLIA [id number] [address] [place] [address] [place] AMERICACNCOon 21-95-8362JWRGFwbsds Text Letter TextNoSalem City HospitalCNOVon 54-59-5231WAMLVnedyk Visit ([facility]) PRINCESS CANTU ([id number]) 1995 F Date Time Provider Department 04/16/22 [...] History Social History Narrative 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 I, Brendan Blaknenship, have reviewed this information as documented for accuracy and performed all elements of history taking, and edited the record as necessary. ROS: SEE HPI PE: GENERAL: well-appearing, in no acute distress LUNGS: Normal inspiratory effort ASL INTERPRETER: Normal external genitalia, no vaginal bleeding, small [...] Order(s):MITCH / TRICHOMONAS AMPLIFICATION [SQCVTV] Order #: [id number]. #:[id number] BACTERIAL VAGINOSIS AMPLIFICATION [SQBVAMP] Order #: [id number]. #:[id number] GC/CHLAMYDIA DNA DET [SQGCCAMP] Order #: [id number]. #:[id number] SYPHILIS TOTAL W/REFLEX [SQSYPHTX] Order #: [id number] FUTURE HIV 1 2 COMBO(AG/AB),WITH REFLEX TO DIFFERENTIATION [SQHIV12] Order #: [id number] FUTURE HEP C AB IA W/CONF SCRN [NZJNLH1S] Order #: [id number] FUTURE HEP B SURF AG SCRN [SQHBSAG] Order #: [id number] FUTURE Prescriptions as of 04/16/2022 - lamoTRIgine [...] medication Encounter Status:Closed by BRENDAN BLANKENSHIP on 04/16/22Salem City HospitalHBV surface Ab IA Ql (S)on 59-68-5915ECR surface Ag Ql (S)Negative NormalNegativeBerger Hospital on above:Order Comment: Specimen Type: BLOOD SPECIMENOrdering Facility: [facility] Address:[address] [place], [place] [address]Performed By: #### GCCT #### [place] [phone] Ab Ser Qlon 06-05-2989EXD Ab Ql (S)NegativeNormalNegative [facility] on above:Order Comment: Specimen Type: BLOOD SPECIMEN [facility] Address: [address] [place], [place] [address]Result Comment: The result suggests no evidence of active infection with Hepatitis C virus. Should recent infection be suspected, repeat testing may be considered 4-6 weeks after this draw.Performed By: #### [id number] #### [facility] CLIA [id number] [address] [place] [address] STATES OF [facility]IN[facility] SYSTEM WEST CAMPUSHIV 1+2 Ab IA Qlon 79-98-5345WRQ 1 and 2 Ab IA.rapid NomSheltering Arms Hospital on above:Order Comment: Specimen Type: BLOOD SPECIMENOrdering Facility: [facility] Address:[address] [place], [place] [address]Result Comment: Test not indicated.Performed By: #### GCCT #### [place] [phone] 1+2 Ab+HIV1 p24 Ag IA QlNon-ReactiveNormalNonreactiveBerger Hospital on above:Order Comment: Specimen Type: BLOOD SPECIMENOrdering Facility: [facility] Address:[address] [place], [place] [address]Performed By: #### GCCT #### [place] [address] OFYZQUEeyhpaAhwltobhx Clinic ClevelandComment on above:Order Comment: Specimen Type: BLOOD SPECIMENOrdering Facility: [facility] Address:[address] [place], [place] [address]Result Comment: No evidence of HIV-1 or HIV-2 infection. Should recent [...] the release of HIV test results or diagnoses.Performed By: #### GCCT #### [place] [address] Osxbom and Treponema pallidum IgG and IgM [Interp]on 04-16-2022 SYPHILIS INTERPRETATIONCannot exclude recent Treponemal infection if specimen collected within 7-10 days after appearance of suspect lesions or 2-3 weeks after an exposure. Clinical correlation is required.NormalBerger Hospital on above:Order Comment: Specimen Type: BLOOD SPECIMENOrdering Facility: [facility] Address:[address] [place], [place] [address]Performed By: #### GCCT #### [place] [phone]. pallidum IgG+IgM IA Ql (S)Non-ReactiveNormalNonreactiveBerger Hospital on above:Order Comment: Specimen Type: BLOOD SPECIMENOrdering Facility: [facility] Address:[address] [place], [place] [address]Performed By: #### GCCT #### [place] [address] GTGVZOXIMAxgdwft By: SYSTEM SYSTEM on 85-95-0850WAS.beta subunit Qn1 m[IU]/mLNormal1 - 3 mIU/mLAMG SPECIALTY [facility] RemisolCNPNon 66-79-6215QKQDXwbgmrawb ([facility]) PRINCESS CANTU ([id number]) 1995 F Date Time Provider Department 03/24/22 KAVITA SWEET [facility] During your visit today, we recorded [...] Fully Assessed Reason for Visit: Bleeding With [19005] Primary Visit Diagnosis:Bleeding in early [O20.9] Order(s):HCG QUANTITATIVE [SQHCGQT] Order #: [id number] FUTURE Prescriptions as of 03/24/2022 - metroNIDAZOLE [...] 07/04/2021 Encounter Status:Closed by BRENDAN SOUZA [facility]22[facility] 27-99-5882NWUTIdccmpkcq ([facility]) PRINCESS CANTU ([id number]) 1995 F Date Time Provider Department 03/19/22 [place] DWYER [facility] During your visit today, we [...] 07/04/2021 Encounter Status:Closed by MARY ONOFRE on 03/19/22[facility] ([facility])on 79-06-3039Sbgjxr-up visitProvider Impressions 1. Seizure: Stable. Last episode was [...] She has had no further seizures or eventsof time lapse or memory loss. She is on lamotrigine 100mg BID. She is tolerating this well with no side effects. To review, on April 18, 2020 she was sleeping, around 10:30pm. Her boyfriend was with her and call 911. He described her choking, stiffening all over, eyes rolled back, but no tongue trauma or bowel/bladder incontinence. [facility] was taken to [facility] in [place]. She had lab work and a CT scan, was toldthis was normal. She was referred to a Neurologist. She had an EEG and an MRI. She was prescribed aseizure medication but did not want to start [...] DAILY. Vitals Vital Signs Recorded: 24Dec2021 11:32AM Miblesacuoh99.1 F Heart Rate54 Cazayysd583 Onknaqbhy54 Height5 ft 9 in Kpgmqi766 lb 1.6 oz BMI Fbycndstif36.03 kg/m2 BSA Calculated2.11 Tobacco Useb) No Fall Screeninga) No falls within the last year O2 Xdqnwcwlnc404, RA Physical Exam Constitutional: General appearance: no acute distress Mental status: The patient was in no distress, alert, interactive and cooperative. Affect is appropriate. Cranial nerves III, IV, and : Pupils round, equally reactive to light; no ptosis. EOMs intact. Nonystagmus. Cranial nerve VII: Normal and symmetric facial strength. Motor: Muscle strength was 5/5 throughout. Gait: Gait is normal without spasticity, ataxia or bradykinesia. Stance is stable with a negative Romberg. Results/Data Neuroimaging was personally reviewed and is as documented in the HPI/assessment and plan. Signatures Electronically signed by : Nedra Calderon MD; Dec 24 2021 11:37AM EST (Author) NormalUH TouchworksTobacco Screening.on 20-65-0010Toad risk assessmenta) No falls within the last lmwcEK-Chlwvorpz-Pduppwwo SJW DO Work Phone: Tobacco use status CPHSb) KyCS-Iqinqyewd-Ymvqlmke SJW DO Work Phone: Office Visit (Primary Care Txt/Forms)on 11-17-2021 Follow-up visitDiagnoses/Problems Assessed Benign essential hypertension (401.1) (I10) stable. [...] no facial pain, no abdominal pain, no nausea,no vomiting, no cough, no rash and no [...] Uriarte MD; Nov 17 2021 1:34PM EST (Author)NormalUH TouchworksTobacco Screening.on 48-55-9485Dexjj depression screening zyodlimrjdTjCG-INNP-[place] Work Phone: Fall risk assessmenta) No falls within the last year HH-MCDV-JqxgKvantum Phone: Tobacco use status CPHSb) VeMW-VXLH-MmslEadBox Phone: bact Vag Amplificationon 17-97-4268Xrzj Vag AmplificationPositiveCritically abnormalNegative for bacterial vaginosis [facility] For RehabilitationComment on above:Performed By: #### GCCT #### [facility] [address] [place] [id number] LCXEwe 16-46-6946VMWSEjwwrm Visit (OBGA) PRINCESS CANTU ([id number]) 1995 F Date Time Provider Department 09/09/21 [...] History Social History Narrative 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 Portions of this record were documented by the Forest Fire Management Officer. I, Brendan Blankenship, have reviewed this information as documented for accuracy and performed all elements of history taking, and edited the record as necessary. ROS: SEE HPI PE: GENERAL: well-appearing, in no acute distress LUNGS: Normal inspiratory effort ASL INTERPRETER: Small amount yellow mucus discharge, cervix NL. [...] Order(s):MITCH / TRICHOMONAS AMPLIFICATION [SQCVTV] Order #: [id number] BACTERIAL VAGINOSIS AMPLIFICATION [SQBVAMP] Order #: [id number] GC/CHLAMYDIA DNA DET [SQGCCAMP] Order #: [id number] metroNIDAZOLE (FLAGYL) 500 mg tabletTake 1 tablet [...] Letter Text Encounter Status:Closed (more content not included)...NormalChildren'S Hospital For RehabilitationCandida Trich Amplon 81-65-4579Fvtufxc glabrata RNANegativeNormal NegativeChildren'S Hospital For RehabilitationComment on above:Performed By: #### GCCT #### [place] [id number] [place] [address] Rkrtqno sp group RNANegativeNormalNegativeChildren'S Hospital For Rehabilitation Comment on above:Performed By: #### GCCT #### [place] [address] Hokbukzxfxp RNANegativeNormalCCleveland Clinic Lutheran HospitalComhenry ford macomb hospital on above:Performed By: #### GCCT #### [facility] [place] [address] CK/Chlamydia Amplifon 75-59-3005Pxlfqujjj AmplifNegativeNormal [facility] Hospital For RehabilitationComment on above:Performed By: #### GCCT #### [facility] [address] [place] [address] UZ AmplificationNegativeNormalCCleveland Clinic Lutheran HospitalComment on above:Performed By: #### GCCT #### [place] [address] [place] [address] RI/Chlam Amp SourceCervixNormalClevelFrye Regional Medical Center Alexander CampusComment on above:Performed By: #### GCCT #### [place] [address] Dpvs Vag Amplificationon 83-61-6131Wsna Vag AmplificationNegative NormalNegative for bacterial vaginosisCCleveland Clinic Lutheran HospitalComment on above:Performed By: #### CVTV, BVAMP #### [facility] CLIA [id number] [address] [place] [address] [address]ETCNOVon 14-10-2093ETGYLtzzzu Visit (OBGYCC) PRINCESS CANTU ([id number]) 1995 F [facility] Date Time Provider Department 07/04/21 4:00 PM [place] DWYER [facility] During your visit today, we recorded the following information about you: Pulse Blood pressure Weight Height 74/minute 131/86 95.7 kg 1.727 m Last Period 06/07/21 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 APRN.[facility] 07/04/2021 4:39 PM Signed Princess is a [...] Ectopic0 Multiple0 Live Births0 Comment: Menarche 10 Respiratory Support Technician History LMP: 06/07/2021 (Exact Date), Having periods Age at Menarche: Age at First : Age at Menopause: Respiratory Support Technician History Comments: Sexual Activity: Yes; Male; [...] external genitalia normal, normal Bartholin's glands, urethra, [place]um[place]'s glands, no vulvar lesions, no cervical lesions, [...] type of detergents for washing undergarments, wiping hslow-xe-nrtk, sleep in loose shorts without underwear, shower [...] health screening schedule is recommended by the [place] [employer] (ACOG). Some of these tests may be ordered or performed by your primary care doctor. Pap test screening The pap test loo (more content not included)...NormalChildren'S Hospital For Rehabilitation Mitch Trich Amplon 04-25-0442Orlzkhr glabrata RNANegativeNormalNegative [facility] Hospital For RehabilitationComment on above:Performed By: #### CVTV, BVAMP #### [facility] CLIA [id number] [address] [place] [address] [place] OF AMERICACandida sp group RNANegative NormalNegativeChildren'S Hospital For RehabilitationComment on above:Performed By: #### CVTV, BVAMP #### [facility] CLIA [id number] [facility] [place] [address] [place] OF AMERICATrichomonas RNANegative NormalChildren'S Hospital For RehabilitationComment on above:Performed By: #### CVTV, BVAMP #### [facility] CLIA [id number] [address] [place] [address] [place] AMERICAGC/Chlamydia Amplifon 47-03-8344Wmadqfxyk AmplifNegativeNormalCCleveland Clinic Lutheran HospitalComment on above:Performed By: #### GCCT #### [place] [address] MJ AmplificationNegativeNormalCCleveland Clinic Lutheran HospitalComment on above:Performed By: #### GCCT #### [place] [address] JR/Chlam Amp SourceCervixNormalCCleveland Clinic Lutheran HospitalComment on above:Performed By: #### GCCT #### [place] [address] Jfkkmvt Screening.on 39-31-7181Chbx risk assessmenta) No falls within the last lsfmBC-Pixmnrdls-Oxvqblew [employer] Work Phone: Tobacco use status CPHSb) LcJQ-Wgfpjgibi-Wavumyle SJW DO Work Phone: GC + Chlamydia By Amplified Detectionon 05-20-2021. trachomatis rRNA HUMERA+probe Ql (Unsp spec)UozzktzyEcucwwefQH-GNCT-[place]f [place] Work Phone: comment on above:The APTIMA Combo 2 assay is FDA- approved for Chlamydia trachomatis and Neisseria gonorrhoeae testing on female endocervical and vaginal swabs, ThinPrep liquid pap samples, male urine samples and urethral swabs. Performance characteristics for Chlamydia trachomatis and Neisseria gonorrhoeae testing on specific yyo-XJE-hmmzgezy sample types (female urine samples) have been validated by [facility]. This laboratory is certified by CLIA to perform high complexity evie ting. Samples from all other sites are not validated for this method.N. gonorrhoeae rRNA HUMERA+probe Ql (Unsp spec)XuuvaiauFuokefhdQM-VUCB-Bbpl [place] Work Phone: comment on above:SOURCE: Urine The APTIMA Combo 2 assay is FDA-approved for Chlamydia trachomatis and Neisseria gonorrhoeae testing on female endocervical and vaginal swabs, ThinPrep liquid pap samples, male urine samples and urethral swabs. Performance characteristics for Chlamydia trachomatis and Neisseria gonorrhoeae testing on specific xwe-FHO-pqkmxtsb sample types (female urine samples) have been validated by [facility]. This laboratory is certified by CLIA to perform high complexity testing. Samples from all other sites are not validated for this method.TSHon 60-62-3281NAP Qn2.30 m[IU]/LNormal0.44 - 3.98St. [facility]ab Hospital HighlandsComment on above:Result Comment: TSH testing is performed using different testing methodology at [facility] than at other [facility]. Direct result comparisons should only be made within the same method.Performed By: #### TSH2 #### [address] [place], [place] [address]FXR - Thyroid Stimulating Hormone, Serumon 85-39-0377ZOB Qn 2.30 m[IU]/LSee VhyvvXF-OIYM-Fofq [place] Work Phone: comment on above:Reference Range: 0.44 - 3.98 TSH testing is performed using different testing methodology at [facility] than at other [facility]. Direct result comparisons should only be made within the same method.Tobacco Screening.on 24-68-3107Ojjg risk assessment a) No falls within the last bnmtET-ZYQA-Iwek [place] Work Phone: Tobacco use status CPHSb) NeOI-ZBDP-Wvpd [place] Work Phone: cBCon 76-55-3887Kzuoslvtrqo distribution width (RBC) [Ratio]13.2 %Nmfudh18.5 - 14.5St. [facility] Hospital HighlandsComment on above:Performed By: #### CBC #### [address] [place], [place] [address]Qolitpokrm (Bld) [Volume fraction]39.5 %Gojoyn33.0 - 46.0St. [facility] Hospital HighlandsComment on above:Performed By: #### CBC #### [address] [address]Imkoxwrqvx (Bld) [Mass/Vol]13.0 g/zADkoyjf68.0 - 16.0St. [facility] Hospital HighlandsComment on above:Performed By: #### CBC #### [address] [address]APPD (RBC) [Mass/Vol]32.9 g/qWGsakty21.0 - 36.0St. [facility] Hospital HighlandsComment on above:Performed By: #### CBC #### [address] [address]PSR (RBC) [Entitic vol]91 nXGkjavg00 - 100St. [facility] Hospital HighlandsComment on above:Performed By: #### CBC #### [address] [address]JUIPOUHJY RBC0.0 /100 WBCNormal0.0 - 0.0St. [facility] Hospital HighlandsComment on above:Performed By: #### CBC #### [address] [address]Ufxvpuafa (Bld) [#/Vol]235 10*3/iJJoqmzr168 - 450St. [facility] Hospital HighlandsComment on above:Performed By: #### CBC #### [address] [address]EYK1.33 x10E12/LNormal4.00 - 5.20[facility] Comment on above:Performed By: #### CBC #### [address] [address]XXV (Bld) [#/Vol]5.8 10*3/uLNormal4.4 - 11.3St. [facility] Hospital HighlandsComment on above:Performed By: #### CBC #### [address] [address]WMCMFCCERDSNP PANELon [id number] [Mass/Vol]4.7 g/dL Normal3.4 - 5.0St. [facility] HighlandsComment on above:Performed By: #### CMP #### [address] [address]DDH [Catalytic activity/Vol]53 U/OTuhyjl70 - 110St. [facility] HighlandsComment on above:Performed By: #### CMP #### [address] [address]FSQ [Catalytic activity/Vol]41 U/LNormal7 - 45St. [facility] Hospital HighlandsComment on above:Result Comment: Patients treated with Sulfasalazine may generate falsely decreased results for ALT.Performed By: #### CMP #### [address] [address]Pkjsq gap [Moles/Vol]10 mmol/GAlinzz56 - 20St. [facility] Hospital HighlandsComment on above:Performed By: #### CMP #### [address] [address]OPK [Catalytic activity/Vol]27 U/LNormal9 - 39St. [facility] HighlandsComment on above:Performed By: #### CMP #### [address] [address]Tcbrkpyvf [Mass/Vol]0.6 mg/dLNormal0.0 - 1.2St[facility] HighlandsComment on above:Performed By: #### CMP #### [address] [address]Ieeezmv [Mass/Vol]9.5 mg/dLNormal8.6 - 10.3St. [facility] HighlandsComment on above:Performed By: #### CMP #### [address] [address]Evqocfsk [Moles/Vol]105 mmol/JIqaxix23 - 107St. [facility] HighlandsComment on above:Performed By: #### CMP #### [address] [address]Qettwtpqeq [Mass/Vol]0.93 mg/dLNormal0.50 - 1.05St. [facility] HighlandsComment on above:Performed By: #### CMP #### [address] [address]HHC-TBKKTCZ AM.>60Normal>60St. [facility] HighlandsComment on above:Result Comment: CALCULATIONS OF ESTIMATED GFR ARE PERFORMED USING THE MDRD STUDY EQUATION FOR THE IDMS-TRACEABLE CREATININE METHODS. CLIN CHEM 2007;53:766-72Performed By: #### CMP #### [address] [address]SAV-XFR AM.>60Normal>60St. [facility] HighlandsComment on above:Performed By: #### CMP #### [address] [address]Ieucvbl [Mass/Vol]94 mg/tADaeejh86 - 99[facility] Comment on above:Performed By: #### CMP #### [address] [address]DUY4 (Bld) [Moles/Vol]28 mmol/YLqiezx90 - 32St[facility] HighlandsComment on above:Performed By: #### CMP #### [address] [address]Hxhwrfitx [Moles/Vol]4.4 mmol/LNormal3.5 - 5.3St[facility] HighlandsComment on above:Performed By: #### CMP #### [address] [address]Mtfduwi [Mass/Vol]7.3 g/dLNormal6.4 - 8.2St. [facility] HighlandsComment on above:Performed By: #### CMP #### [address] [address]Lxhvmb [Moles/Vol]139 mmol/XIntcev069 - 145St. [facility] Hospital HighlandsComment on above:Performed By: #### CMP #### [address] [address]Jzzz nitrogen [Mass/Vol]13 mg/dLNormal6 - 23St. [facility] HighlandsComment on above:Performed By: #### CMP #### [facility] [address] [place], [place] [address]Yexciqlmsleo [phone] (Bld) [Volume fraction]39.5 %See MkumtMJ-Swvosrbzs-Zpbyexsp SJW DO Work Phone: Comment on above:Reference Range: 36.0 - 46.0 Hemoglobin (Bld) [Mass/Vol]13.0 g/dLSee QbuktXZ-Tprqjxhgm-Ksqoeqwj SJW DO Work Phone: Comment on above:Reference Range: 12.0 - 16.0MCV (RBC) [Entitic vol]91 fL80 - 287WC-Kolivckls-Jgprqcfn SJW DO Work Phone: Platelets (Bld) [#/Vol]235 {x10E9/L}150 - 450 EW-Giqcfljzn-WcpuxypmGaebler Children's Center DO Work Phone: RBC (Bld) [#/Vol]4.33 {x10E12/L}See Below CA-Epvhbxway-Uxzuaofz SJW DO Work Phone: Comment on above:Reference Range: 4.00 - 5.20WBC (Bld) [#/Vol]5.8 {x10E9/L}4.4 - 11.4XI-Cfkhjcsmd-Fypyhuhr SJW DO Work Phone: WBC (Bld) [#/Vol]0.0 {/100_WBC}0.0 - 0.0 XA-Waqxodflx-BqhccsgyGaebler Children's Center DO Work Phone: LAMOTRIGINE- LAMICTALon 14-02-3113JBKRMPHVRJT- LAMICTAL6.4 ug/mLNormal2.5 - 15.0StSouth Lincoln Medical CenterComment on above: Performed By: #### LAMOT #### [facility] [address] [place], [place] [address]Afiylawnlwe Level, Serumon 83-00-3138Lpvyfsthmkj [Mass/Vol] 6.4 ug/mL2.5 - 15.2HR-Nxuwgwbwc-Vfvnjdrp SJW DO Work Phone: [phone] Panelon 35-91-1958OYX [Catalytic activity/Vol]53 U/L33 - 746BA-Bkpmwgfph-Zfbhjhsf SJW DO Work Phone: [phone] gap [Moles/Vol]10 mmol/L10 - 20 WE-Cvgudwtsi-Ervwxfon SJW DO Work Phone: [phone] [Mass/Vol]0.6 mg/dL0.0 - 1.2 NH-Bhkdvhmvx-JqrkzottGaebler Children's Center DO Work Phone: [phone] [Mass/Vol]9.5 mg/dL8.6 - 10.3 PT-Ubyfbvdyu-YkllrdyeGaebler Children's Center DO Work Phone: [phone] [Moles/Vol]105 mmol/L98 - 107 CA-Xznxbsqwv-PryhikfcGaebler Children's Center DO Work Phone: [phone] [Moles/Vol]28 mmol/L21 - 12RT-Renfovjvx-Otbnkkeo SJW DO Work Phone: [phone] [Mass/Vol]0.93 mg/dLSee Below [facility] DO Work Phone: [phone] on above:Reference Range: 0.50 - 1.05Glucose [Mass/Vol]94 mg/dL74 - 87BJ-Lvrkdvime-Qohdwqqu SJW DO Work Phone: [phone] [Moles/Vol]4.4 mmol/L3.5 - 5.3 MD-Sjkriwetw-XsixelneGaebler Children's Center DO Work Phone: [phone] [Mass/Vol]7.3 g/dL6.4 - 8.2 SD-Alacevugh-CtszzfjdGaebler Children's Center DO Work Phone: [phone] [Moles/Vol]139 mmol/L136 - 145 TT-Khbfvpugc-DeyamsfyGaebler Children's Center DO Work Phone: [phone] nitrogen [Mass/Vol]13 mg/dL6 - 23 [facility] DO Work Phone: Otheron 15-53-0408Jazwxyw BCP dye [Mass/Vol]4.7 g/dL 3.4 - 5.4LG-Pyozkkwtc-OifolhbyConway Regional Medical Center DO Work Phone: ALT With P-5'-P [Catalytic activity/Vol]41 U/L7 - 45 [facility] DO Work Phone: Comment on above:Patients treated with Sulfasalazine may generate falsely decreased results for ALT.AST With P-5'-P [Catalytic activity/Vol]27 U/L9 - 65LN-Fhvqvrmtf-BjfawjubConway Regional Medical Center DO Work Phone: Erythrocyte distribution width (RBC) [Ratio]13.2 %See WgdgvQU-Swwhkenej-Ekvonfol SJW DO Work Phone: Comment on above:Reference Range: 11.5 - 14.5MCHC (RBC) [Mass/Vol]32.9 g/dLSee KmsmiDU-Spxuwbogr-Onnsabum SJW DO Work Phone: Comment on above:Reference Range: 32.0 - 36.0>60>60 [facility] DO Work Phone: Comment on above:CALCULATIONS OF ESTIMATED GFR ARE PERFORMED USING THE MDRD STUDY EQUATION FOR THE IDMS-TRACEABLE CREATININE METHODS. CLIN CHEM 2007;53:766-72MRI BRAIN W WO CONTRASTon 19-80-8908Uuarq are no acute intracranial changes, no evidence of ischemia or hemorrhage. There are no regions of signal abnormality. There are no areas of abnormal enhancement after contrast administration.[facility], KYEXAMINATION: MRI BRAIN W WO CONTRAST CLINICAL HISTORY: [...] abnormality on perfusion diffusion imaging to suggest ischemia.The susceptibility images do not demonstrate evidence of hemosiderin deposition within the brain parenchyma or the leptomeninges. There is preservation of the rosa-white matter differentiation. Thereare no areas of signal abnormality within the [...] the hippocampi are symmetric. There are no space- occupying lesions in the posterior fossa. The basilar cisterns are patent. The craniocervical junction is unremarkable. The visualized portions of the orbits are within normal limits, the globes are intact. The visualized portions of the paranasal sinuses are within normal limits. 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 Diffusion perfusion imaging was obtained. FINDINGS: There are no extra-axial collections. There is no evidence of hemorrhage. There are no areas of signal abnormality on perfusion diffusion imaging to suggest ischemia. 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 Diffusion perfusion imaging was obtained. FINDINGS: There are no extra-axial collections. There is no evidence of hemorrhage. There are no areas of signal abnormality on perfusion diffusion imaging to suggest ischemia. The susceptibility images do notdemonstrate evidence of hemosiderin deposition within the brain [...] Signed by: David Winter MD 05/09/20 Final resultNormSouthwest Memorial Hospital With Platelet and Differentialon 40-79-7622Cpfopwkls (Bld) [#/Vol]0.1 10*3/uLNormal0.0-0.2Mmercy health defiance hospitaly Diamond [facility]'S Medical CenterComment on above:Performed By: #### CBCWD #### [facility] [address] [place] [address] Urqkltotp/100 WBC (Bld)0.4 %NormalMiami Valley HospitalComment on above:Performed By: #### CBCWD #### [facility] [address] [place] [address] Ytmgwojddxo (Bld) [#/Vol]0.5 10*3/uLNormal0.0-0.7Mi[facility] HospitalComment on above:Performed By: #### CBCWD #### [facility] [address] [place] [address] Phtkzgrkduz/100 WBC (Bld)4.2 %NormalMiami Valley HospitalComment on above:Performed By: #### CBCWD #### [facility] [address] [place] [address] Zjhypmdoyhh distribution width (RBC) [Ratio]12.5 %Naxwws51.5-14.5 [facility] HospitalComment on above:Performed By: #### CBCWD #### [facility] [address] [place] [address] Mwxcnujcdh (Bld) [Volume fraction]39.4 %Jhybqj77.0-47.0[facility] HospitalComhenry ford [facility] on above:Performed By: #### CBCWD #### [facility] [address] [place] [address] Dbgaewkjtk (Bld) [Mass/Vol]13.3 g/tIDrzxlg68.0-16.0[facility] HospitalComment on above:Performed By: #### CBCWD #### [facility] [address] [place] [address] Pimnemyduoo (Bld) [#/Vol]3.2 10*3/uLNormal1.0-4.8[facility] HospitalComment on above:Performed By: #### CBCWD #### [facility] [address] [place] [address] Fjmnjjqttzb/100 WBC (Bld)26.9 %NormalMiami Valley HospitalComment on above:Performed By: #### CBCWD #### [facility] [address] [place] [address] VQW (RBC) [Entitic mass]29.8 zcVexfru36.0-31.3MNorwalk Memorial Hospital Comment on above:Performed By: #### CBCWD #### [facility] [address] [place] [address] HAOO (RBC) [Mass/Vol]33.8 %Qelryq11.0-37.0[facility] Comment on above:Performed By: #### CBCWD #### [facility] [address] [place] [address] ZLN (RBC) [Entitic vol]88.4 mEYtdvbx53.0-100.0[facility] Comment on above:Performed By: #### CBCWD #### [facility] [address] [place] [address] Snljennqo (Bld) [#/Vol]0.8 10*3/uLNormal0.2-0.8[facility] Comment on above:Performed By: #### CBCWD #### [facility] [address] [place] [address] Hqxnwnhns/100 WBC (Bld)6.8 %Doctors HospitalComment on above:Performed By: #### CBCWD #### [facility] [address] [place] [address] Ycflxvkyjqi (Bld) [#/Vol]7.3 10*3/uLCritically high1.4-6.5Mi[facility] HospitalComment on above:Performed By: #### CBCWD #### [facility] [address] [place] [address] Fbjyvbwjuyb/100 WBC (Bld)61.7 %Doctors HospitalComment on above:Performed By: #### CBCWD #### [facility] [address] [place] [address] Gxiinjimg (Bld) [#/Vol]314 10*3/fZAqdsbc816-765[facility] Comment on above:Performed By: #### CBCWD #### [facility] [address] [place] [address] NZF (Bld) [#/Vol]4.45 10*6/uLNormal4.20-5.40[facility] Comment on above:Performed By: #### CBCWD #### [facility] [address] [place] [address] SVA (Bld) [#/Vol]11.9 10*3/uLCritically high4.8-10.8[facility] HospitalComment on above:Performed By: #### CBCWD #### [facility] [address] [place] [address] KQ HEAD WO CONTRASTon [id number] HEAD WO CONTRASTCOMPARISON: No prior studies available for comparison. HISTORY: seizure TECHNIQUE: The study was performed without contrast FINDINGS: No acute hemorrhage or extra-axial fluid collection seen. The ventricular system is midline with noevidence for hydrocephalus. No wide vessel territory stroke [...] by: Jayce De Jesus DO 04/19/20 Final resultNormalMiami Valley HospitalComprehensive Metabolic Panelon 04-19-2020 Albumin [Mass/Vol]4.9 g/dLCritically high3.5-4.6MNorwalk Memorial HospitalComment on above:Performed By: #### CMP #### [facility] [address] [place] [address] UTV [Catalytic activity/Vol]40 U/FRylobb88-420HdfxoMiami Valley Hospital Comment on above:Performed By: #### CMP #### [facility] [address] [place] [address] BYT [Catalytic activity/Vol]17 U/LNormal0-33[facility] Comment on above:Performed By: #### CMP #### [facility] [address] [place] [address] Eggzy gap [Moles/Vol]14 mmol/LNormal9-15[facility] HospitalComment on above:Performed By: #### CMP #### [facility] [address] [place] [address] ILT [Catalytic activity/Vol]17 U/LNormal0-35[facility] Comment on above:Performed By: #### CMP #### [facility] [address] [place] [address] Xekgehfzc [Mass/Vol]mg/dLNormal0.2-0.7[facility] HospitalComment on above:Performed By: #### CMP #### [facility] [address] [place] [address] Hirzyar [Mass/Vol]10.0 mg/dLCritically high8.5-9.9[facility] HospitalComment on above:Performed By: #### CMP #### [facility] [address] [place] [address] Nebfhoks [Moles/Vol]101 mmol/YKzatuz34-572IpfwuMiami Valley Hospital Comment on above:Performed By: #### CMP #### [facility] [address] [place] [address] EF4 [Moles/Vol]24 mmol/YUvqcqg92-37XzgedMiami Valley HospitalComment on above:Performed By: #### CMP #### [facility] [address] [place] [address] Uoskykryiv [Mass/Vol]0.87 mg/dLNormal0.50-0.90[facility] Comment on above:Performed By: #### CMP #### [facility] [address] [place] [address] MPE/1.73 sq M predicted among blacks MDRD (S/P/Bld) [Vol rate/Area] mL/min/{1.73_m2}Normal>60[facility] HospitalComment on above:Result Comment: >60 mL/min/1.73m2 EGFR, calc. for ages 18 and older using the MDRD formula (not corrected for weight), is valid for stable renal function.Performed By: #### CMP #### [facility] [address] [place] [address] HWU/1.73 sq M.predicted MDRD (S/P/Bld) [Vol rate/Area] mL/min/{1.73_m2}Normal>60[facility] HospitalComment on above:Result Comment: >60 mL/min/1.73m2 EGFR, calc. for ages 18 and older using the MDRD formula (not corrected for weight), is valid for stable renal function.Performed By: #### CMP #### [facility] [address] [place] [address] Ccywtubf (S) [Mass/Vol]3.1 g/dLNormal2.3-3.5[facility] Comment on above:Performed By: #### CMP #### [facility] [address] [place] [address] Apvxvff [Mass/Vol]94 mg/mODcpscq31-03JjzinNorwalk Memorial HospitalComment on above:Performed By: #### CMP #### [facility] [address] [place] [address] Xtkxvydso [Moles/Vol]3.9 mmol/LNormal3.4-4.9[facility] Comment on above:Performed By: #### CMP #### [facility] [address] [place] [address] Ulfxayy [Mass/Vol]8.0 g/dLNormal6.3-8.0[facility] HospitalComment on above:Performed By: #### CMP #### [facility] [address] [place] [address] Htclns [Moles/Vol]139 mmol/AVelujp857-202AzcqkMiami Valley HospitalComment on above:Performed By: #### CMP #### [facility] [address] [place] [address] Mumz nitrogen [Mass/Vol]12 mg/dLNormal6-20[facility] Comment on above:Performed By: #### CMP #### [facility] [address] [place] [address] Ridnpj Acidon 51-50-2986Qdhseok [Moles/Vol]1.8 mmol/LNormal0.5-2.2 [facility] HospitalComment on above:Performed By: #### LACID #### [facility] [address] [place] [address] Ijxswlqonrt 91-48-1318Wpbggcpwq256.8 ng/mLNormalMiami Valley Hospital Comment on above:Result Comment: Default Normal Ranges Female Male Non: 4.8-23.3 4.0-15.2Performed By: #### PROLA #### [facility] [address] [place] [address] Ztwjp HCG Qualitativeon 04-05-4510NRW.beta subunit QnNegativeNormal Miami [facility] HospitalComment on above:Performed By: #### SHCG #### [facility] [address] [place] [address] Vbwwtvhbjb, reflex to cultureon 25-68-0496Wypoo Reflexed to Culture Not IndicatedNormalMiami Valley HospitalComment on above:Performed By: #### UAR #### [facility] [address] [place] [address] Tiuuvgrwg Ql (U)NegativeNormalNegativeMiami Valley HospitalComment on above:Performed By: #### UAR #### [facility] [address] [place] [address] Gajbefq (U)ClearNormalClearMiami Valley HospitalComment on above: Performed By: #### UAR #### [facility] [address] [place] [address] Hxsfm (U)YellowNormalStraw/YellMiami Valley HospitalComment on above: Performed By: #### UAR #### [facility] [address] [place] [address] Xuewmht Ql (U)NegativeNormalNegLakewood Regional Medical CenterComment on above:Performed By: #### UAR #### [facility] [address] [place] [address] Vifaxzlmgx Ql (U)Trace-intactNormalNegLakewood Regional Medical Center Comment on above:Performed By: #### UAR #### [facility] [address] [place] [address] Xtycmck Ql (U)NegativeNormalNegLakewood Regional Medical CenterComment on above:Performed By: #### UAR #### [facility] [address] [place] [address] Vmtscrrvc esterase Test strip Ql (U)NegativeNormalSalt Lake Behavioral Health HospitalComhenry [facility] hospital on above:Performed By: #### UAR #### [facility] [address] [place] [address] Mheuyhk Ql (U)NegativeNormalSalt Lake Behavioral Health HospitalComment on above:Performed By: #### UAR #### [facility] [address] [place] [address] pD (U)6.0 [pH]Normal5.0-9.0[facility] HospitalComment on above: Performed By: #### UAR #### [facility] [address] [place] [address] Qdsiuse Ql (U)NegativeNormalNegLakewood Regional Medical CenterComment on above:Performed By: #### UAR #### [facility] [address] [place] [address] Gfvihqhp gravity (U) [Rel density]1.211Gwgyve0.005-1.03Mercy Joss HospitalComment on above:Performed By: #### UAR #### [facility] [address] [place] [address] Oamwltccnupu Qn (U)0.2 {Alan'U}/dLNormal< 2.0[facility] Comment on above:Performed By: #### UAR #### [facility] [address] [place] [address] Rhuqa Microscopicon 40-92-6054Fwkukmcfds cells LM Ql (Urine sed)0-2 NormalMiami Valley HospitalComment on above:Performed By: #### UMIC #### [facility] [address] [place] [address] YIL (U) [#/Vol]3-2Qzdrsp5-4JbjklNorwalk Memorial HospitalComment on above: Performed By: #### UMIC #### [facility] [address] [place] [address] KRZ (U) [#/Vol]3-3Rtrqir5-8VeshnMiami Valley HospitalComment on above: Performed By: #### UMIC #### [facility] [address] [place] [address] XUA Auto Differentialon 16-80-8163Yqmaywnoy (Bld) [#/Vol]0.1 10*3/uL 0 - 0.2 K/uLCleveland Clinic Akron Generalcy Health- [place], KYBasophils/100 WBC (Bld)0.4 %[facility]- [place], [place] Eosinophils (Bld) [#/Vol]0.5 10*3/uL0 - 0.7 K/uLMercy Health- [place], [place] Eosinophils/100 WBC (Bld)4.2 %[facility]- [place], KYErythrocyte distribution width (RBC) [Ratio]12.5 %11.5 - 14.5 %[facility]- [place], KYHematocrit (Bld) [Volume fraction]39.4 %37 - 47 %[facility]- [place], KYHemoglobin (Bld) [Mass/Vol]13.3 g/dL 12 - 16 g/dLMercy Health- [place], KYInterpretation and review of laboratory results AbnormalUniversity Hospitals St. [facility] [place], KYLymphocytes (Bld) [#/Vol]3.2 10*3/uL1 - 4.8 K/uL [facility] [place], KYLymphocytes/100 WBC (Bld)26.9 %[facility] [place], KYMCH (RBC) [Entitic mass]29.8 pg27 - 31.[address] [facility] [place], KYMCHC (RBC) [Mass/Vol]33.8 %33 - 37 %[facility] [place], KYMCV (RBC) [Entitic vol]88.4 fL82 - [address] [facility] [place], KYMonocytes (Bld) [#/Vol]0.8 10*3/uL0.2 - 0.8 K/uLSelect [facility]- [place], KYMonocytes/100 WBC (Bld)6.8 %[facility], KYNeutrophils Absolute7.3 K/uL High1.4 - 6.5 K/uLSelect [facility]ty [facility]- [place], KYNeutrophils/100 WBC (Bld)61.7 %[facility], KYPlatelets (Bld) [#/Vol]314 10*3/uL130 - 400 K/uLSelect [facility]ty [facility]- [place], KYRBC (Bld) [#/Vol]4.45 10*6/uLSelect [facility]ty [facility]- [place], KYWBC (Bld) [#/Vol]11.9 10*3/uL High4.8 - 10.8 K/uLSelect Medical Specialty [facility]- [place], KYComprehensive Metabolic Panelon [id number] [Mass/Vol]4.9 g/dLHigh3.5 - 4.6 g/dLSelect Medical Specialty [facility]- [place], KYALP [Catalytic activity/Vol]40 U/L40 - 130 U/LMMercy Health Willard Hospital- [place], KYALT [Catalytic activity/Vol]17 U/L0 - 33 U/LMbarnesville hospital Health- [place], KYAnion gap [Moles/Vol]14 mmol/L [facility]- [place], KYAST [Catalytic activity/Vol]17 U/L0 - 35 U/LMMercy Health Willard Hospital- [place], KYBilirubin Ql (U)<0.20.2 - 0.7 mg/dLMercy Health- [place], KYCalcium [Mass/Vol] 10.0 mg/dLHigh8.5 - 9.9 mg/dLMercy Health- [place], KYChloride [Moles/Vol]101 mmol/L [facility]- [place], KYCO2 [Moles/Vol]24 mmol/LMbarnesville hospital Health- [place], KYCreatinine [Mass/Vol]0.87 mg/dL0.5 - 0.9 mg/dLCleveland Clinic [facility] Generalcy Health- [place], KYGFR >60.0 >60[facility]- [place], KYComment on above:>60 mL/min/1.73m2 EGFR, calc. for ages 18 and older using the MDRD formula (not corrected for weight), is valid for stable renal function. GFR Non->60.0>60[facility]- [place], KYComment on above:>60 mL/min/1.73m2 EGFR, calc. for ages 18 and older using the MDRD formula (not corrected for weight), is valid for stable renal function. Globulin (S) [Mass/Vol]3.1 g/dL2.3 - 3.5 g/dLProtestant Deaconess [facility]- [place], KYGlucose [Mass/Vol]94 mg/dL70 - 99 mg/dLProtestant [facility]- [place], KYInterpretation and review of laboratory resultsAbnormalSelect [facility] [place] [facility]- [place], KYPotassium [Moles/Vol]3.9 mmol/L [facility] [place] [facility]- [place], [place]Protein [Mass/Vol]8.0 g/dL6.3 - 8 g/dLSelect [facility]ty [facility] [place] [facility]- [place], [place] Sodium [Moles/Vol]139 mmol/LM[facility]- [place], KYUrea nitrogen [Mass/Vol]12 mg/dL 6 - 20 mg/dLSelect [facility]ty [facility] [place] [facility]- [place], KYHCG Qualitative, Serumon 09-63-6601hSO Qual NegativeMerEastern State Hospital- [place], KYLactic Acid, Plasmaon 01-08-1103Egmqvcu [Moles/Vol] 1.8 mmol/L0.5 - 2.2 mmol/LMbarnesville hospital [facility]- [place], KYMicroscopic Urinalysison 92-85-5278Rhrbopsmva Cells, UA0-2/HPFSelect Medical Specialty Hospital [facility] [place] [facility]- [place], KYRBC (U) [#/Vol]0-2[facility]- [place], KYWBC, UA0-2[facility]- [place], KYUrine Reflex to Cultureon 12-77-1406Zjdbzhrpw UrineNegativeNegativeMercy Health- [place], KYBlood, Urine Trace-intactNegativeMercy Health- [place], KYClarity, UAClearClearMercy Health- [place], KYColor, UAYellowStraw/YellowMercy Health- [place], KYGlucose, UrNegativeNegative mg/dLMercy Health- [place], KYKetones Ql (U)NegativeNegative mg/dLMercy Health- [place], KYLeukocyte esterase Test strip Ql (U)NegativeNegativeMercy Health- [place], [place] Nitrite, UrineNegativeNegativeMercy Health- [place], KYpH, UA6.0[facility]- [place], [place] Protein (U) [Mass/Vol]NegativeNegative mg/dLMercy Health- [place], KYSpecific Woody, UA1.020[facility]- [place], KYUrine Reflex to CultureNot IndicatedMercy Health- [place], KYUrobilinogen, Urine0.2<2.0 E.U./dLMercy Health- [place], [place] ECHOCARDIOGRAPHY REPORT (HL)on 20-08-7295NRDXOEIDIRYXGTII REPORT (HL)PRINCESS CANTU [id number] 179.6F 1.06f3UrfivfbcalILKOISNJWAAZKT LABReferring: Koffi Uriarte A.Reading: CURTIS GARCIA Transthoracic EchocardiogramECHOALL - ECHO COMPLETE WITH 2D M MODE DOP CLR (1)CHEST PAIN: 126/76Chambers MMAo root diameter (MM) 2.6 cmAV cusp separation (MM) 1.9 cmChambers 2DRVIDd 2D 2.78 cmIVSd (2D) 0.824 cmLVPWd (2D) 1.02 cmLVIDd (2D) 4.14 cmLVIDs (2D) 2.93 cmLA dimension 2D 3 cmVolumes/MassLA Area 2 CH 13.5 cm2LA Area 4 CH 16.1 cm2LA Volume Indexed 21.05 ml/b9Vcdrlvtqv/Systolic FunctionMV E- wave Vmax 0.884 m/secMV deceleration time 193 msecMV A-wave Vmax 0.494 m/secLV septal e' Vmax 0.115 m/secLV lateral e' Vmax 0.189 m/secLV E:e' septal ratio 7.7 ratio [facility] PRINCESS CANTU [id number] [place] [address] [id number] 93Koffi Uriarte MDECHOCARDIOGRAPHY REPORTLV E:e' lateral ratio 4.7 ratioAortic ValveAV Vmax 1.42 m/secAV peak gradient 8 mmHgLVOT Vmax 0.913 m/secLVOT peak gradient 3 mmHgAsc ending Ao 2.8 cmTricuspid ValveTR Vmax 2.19 m/secTR [...] appear normal. There is no evidence of mitralregurgitation.Tricuspid Valve:The tricuspid valve leaflets are normal. There is no evidence oftricuspid valve regurgitation.Pulmonic Valve:The pulmonic valve is normal in structure. There is no evidence ofpulmonic regurgit ation. [facility] PRINCESS CANTU [id number] [place] [address] [id number] 93Koffi Uriarte MDECHOCARDIOGRAPHY REPORTPericardium:There is no pericardial effusion seen.Aorta:The aortic root appears normal. The proximal ascending aorta appearsnormal. The aortic arch appears normal.Pulmonary Artery:The main pulmonary artery appears normal.Venous:The inferior vena cava is normal with respiratory variations. There is agreater than 50% respiratory change in the i nferior vena cava dimension.1. There is normal LV systolic and diastolic function.2. No chamber enlargement seen.3. Normal valve function.This is a normal echocardiogram.PARAS GARCIA05/10/2017 10: 26:53 [facility]ITALPR[facility] [id number] [place] [address] [id number] Uriarte MDECHOCARDIOGRAPHY REPORTNormalSaint Uab Hospital HighlandsBASIC METABOLIC PANELon 44-61-0964Mbafy gap10 mmol/LNormal6-18SHutchinson Regional Medical CenterComment on above: Order Comment: Is patient fasting? YESPerformed By: #### LBMP, LGFRP ####[facility] Imvahvsekj71357 [place], [place] [address]Wldptmb8.6 mg/dLNormal 8.6-10.3SHutchinson Regional Medical CenterComment on above:Order Comment: Is patient fasting? YESPerformed By: #### SAI, LGFRP ####[facility] Yzdsejgwvg33538 [place], [place] [address]Ecuquevm605 mmol/VYrqogg35-643UmrtbWeston County Health Service - [facility] Comment on above:Order Comment: Is patient fasting? YESPerformed By: #### SAI, LGFRP ####[facility] Sxqtmaldus89972 [place], [place] [address]VX930 mmol/L Cjezck71-96VppgbWeston County Health Service - NewcastleComment on above:Order Comment: Is patient fasting? YESPerformed By: #### SAI, LGFRP ####[facility] Zjwvladvor[address] [place] [address]Bumgnhqtop0.74 mg/dLNormal0.5-1.05[facility] - NewcastleComment on above:Order Comment: Is patient fasting? YESPerformed By: #### SAI, LGFRP ####[facility] Dqmlcernya[address] [place] [address]Mefeysv mass conc82 mg/cJQbahds62-54NrsqwWeston County Health Service - NewcastleComment on above:Order Comment: Is patient fasting? YESPerformed By: #### SAI, LGFRP ####[facility] Qhdtphzvxd[address] [place] [address]Okxqhjuwk molar conc4.1 mmol/LNormal3.5-5.3SHutchinson Regional Medical CenterComment on above:Order Comment: Is patient fasting? YESPerformed By: #### LBSHAWN, LGFRP ####[facility] Cvrzddvhrl86101 [place], [place] [address]Edgdyg167 mmol/SAtm620-482XuhxeWeston County Health Service - NewcastleComment on above:Order Comment: Is patient fasting? YESPerformed By: #### LBSHAWN, LGFRP ####[facility] Haehbnwnhl68007 [place], [place] [address]Drsk ajxkvren61 mg/dLNormal6-23[facility] - NewcastleComment on above:Order Comment: Is patient fasting? YESPerformed By: #### LBSHAWN, LGFRP ####[facility] Exirnomtfd[address] [place] [address]NLF AUTOon 05-04-2017 Erythrocyte distribution width Auto Ratio (RBC)12.8 %Bmwsmj75.5-14.5SHutchinson Regional Medical CenterComment on above:Performed By: #### LCBC ####[address] [address]Degqeknuzrrs (RBC)4.65 10*6/uLNormal3.5-5.5 [facility] - NewcastleComment on above:Performed By: #### RASHMIBC ####[address] [address]Mgyajyhxru (HCT)41.1 %Normal 36.0-48.0[facility] Service - NewcastleComment on above:Performed By: #### RASHMIBC ####[address] [address]Fdvezlwqrz mass conc (Bld)13.8 g/yFQluevj14.0-15.0[facility] - NewcastleComment on above: Performed By: #### LCBC ####[address] [address]YNN98.7 vcJxcdlr86.4-34.6[facility] - NewcastleComment on above: Performed By: #### LCBC ####[address] [address]RPJR mass conc (RBC)33.6 g/mUNxnvkl78.0-36.0[facility] Comment on above:Performed By: #### LCBC ####[address] [address]VMG66.4 oTKbxqpp65.0-98.0[facility] - NewcastleComment on above:Performed By: #### LCBC ####[address] [address]Flwenjcq mean volume (PMV)9.3 fLNormal8.4-11.9[facility] - NewcastleComment on above:Performed By: #### LCBC ####[address] [address]Wctwbdnmm214 10*3/oNXhhyjo212-759NzblvWeston County Health Service - NewcastleComment on above:Performed By: #### LCBC ####[facility] Wpraqirhyf55599 [place], [place] [address]ORN (Leukocytes)6.1 10*3/uLNormal3.9-11.0 [facility] - NewcastleComment on above:Performed By: #### LCBC ####[facility] Apfkphbpqc548[address] [place] [address]GWSLCTCRPI FILTRATION RATE ESTon 11-91-9013kICZ (non-black)mL/min/{1.73_m2}Normal> 60[facility] - NewcastleComment on above:Order Comment: Is patient fasting? YESPerformed By: #### SAI, SHANONFRP ####[facility] Cbrfjwpjhi24267 [place], [place] [address]WV AMER> 90Normal> 60[facility] Service - NewcastleComment on above:Order Comment: Is patient fasting? YESResult Comment: Effective 12/12/14:CKD-EPI equation / based on IDMS traceable creatinine.Continue touse the CREAT CLR-DOSE ([place]groft-Gault)value for determining medication dose.Performed By: #### SAI, LGP ####[facility] Rtygcrhtwa2[address] [place] [address] Vital Signs Date TimeVital SignValuePerforming JlezrgarjClbhglxi04-97-2880 10:07-0400Body mass index (BMI) [Ratio]27.02 kg/m2Roula VILLEDA Work Phone: [facility] CenterPzuzhgprij53-24-6550 10:07-0400Body arjiwe82.01 kgRoula VILLEDA Work Phone: [facility] CenterCeeezzcbzf94-75-3843 10:07-0400Diastolic blood vuabzhuy41 mm[Hg]Roula VILLEDA Work Phone: [facility] CenterTjnfrwzeqd54-55-6706 10:07-0400Systolic blood xdhskjeo407 mm[Hg]Roula VILLEDA Work Phone: [facility] CenterMsdqpilcaq93-12-3393 15:12-0400Body mass index (BMI) [Ratio]27.04 kg/l2Ggfmp April DO Work Phone: [facility] CenterSmjjfbixhh70-84-6842 15:12-0400Body .06 kgCorey April DO Work Phone: [facility] CenterTpiviybxsh05-43-1580 15:12-0400Diastolic blood rylcjnxu55 mm[Hg]Willis April DO Work Phone: [phone]-[facility] CenterHpqplhbspv77-86-9013 15:12-0400Systolic blood ozrmewxa780 mm[Hg]Willis April DO Work Phone: [phone] [place], [place] [address]Ivovyfjizm08-63-7869 15:39-0400Body mass index (BMI) [Ratio]26.26 kg/m2Roula Mitchel VILLEDA Work Phone: [phone] [place], [place] [address]Kputobpann66-82-8392 15:39-0400Body jbqqun44.65 kgAmy Mitchel VILLEDA Work Phone: [phone])766-[address] [place], [place] [address]Nzdipbvuix35-43-7924 15:39-0400Diastolic blood mm[Hg]Roula VILLEDA Work Phone: 1(924)413-[address] [place], [place] [address]Rduafqmttr92-75-2901 15:39-0400Systolic blood opkmykma730 mm[Hg]Roula VILLEDA Work Phone: [phone] [place], [place] [address]Bsdnbrjxho04-43-9333 15:09-0400Body mass index (BMI) [Ratio]26.11 kg/i8Mzugc April DO Work Phone: 1(088)813-[address] [place], [place] [address]Mznzpwzwwc90-77-6743 15:09-0400Body lufcfp84.2 kg Willis April DO Work Phone: [phone])128-[address] [place], [place] [address]Vprolotixr47-75-9659 15:09-0400Diastolic blood upmubuai32 mm[Hg]Willis April DO Work Phone: 1(225)794-[address] [place], [place] [address]Lwrvcloxtj11-25-3176 15:09-0400Systolic blood awcjycry934 mm[Hg]Willis April DO Work Phone: [phone])964-[address] [place], [place] [address]Fjhfrdlxvy77-84-4156 09:35-0400Body mass index (BMI) [Ratio]25.92 kg/m2Roula Mitchel VILLEDA Work Phone: [facility] CenterQvguqasuba84-88-2678 09:35-0400Body ihimiq51.61 kgRoula Lernerey PA Work Phone: [facility] CenterNldyrqwiwc21-16-9380 09:35-0400Diastolic blood hrvwmryk54 mm[Hg]Roula Mitchel PA Work Phone: [facility] CenterFkousjmjbj87-29-0735 09:35-0400Systolic blood mm[Hg]Roula Lernerey PA Work Phone: [facility] CenterXjofvoxczm19-31-0857 11:56-0400Body mass index (BMI) [Ratio]26.55 kg/g1IlbokStony [facility]06-27-2025 11:56-0400Body weight 81.56 kgStony Brook [facility]02-25-2025 12:28-0500Body lxncre028.3 cmKoffi Uriarte MD Work Phone: [phone])187-[facility]02-25-2025 12:28-0500 Body mass index (BMI) [Ratio]27.06 kg/l4VsejgyqKoffi Uriarte MD Work Phone: [phone]02-25-2025 12:28-0500 Body emawdgoucta37.3 [degF]Koffi Uriarte MD Work Phone: [phone]02-25-2025 12:28-0500 Body kggorf24.12 kgKoffi Uriarte MD Work Phone: [phone])248-[facility]02-25-2025 12:28-0500 Diastolic blood dmuoyjvo87 mm[Hg]Koffi Uriarte MD Work Phone: [phone]02-25-2025 12:28-0500 Heart rate71 /minKoffi Uriarte MD Work Phone: [phone]02-25-2025 12:28-0500 Systolic blood mm[Hg]Koffi Uriarte MD Work Phone: [facility]10-16-2024 09:18-0400 Body dqqovr618.3 Twaanda Calderon MD Work Phone: 1(101)969-[address] [place], [place] 377[address]10-16-2024 09:18-0400 Body mass index (BMI) [Ratio]28.15 kg/a3TeeqxdNedra Calderon MD Work Phone: 1(970)380-[address] [place], [place] 3776210-16-2024 09:18-0400 Body aqylaamzbkg54.91 [degF]Nedra Calderon MD Work Phone: [phone] [place], [place] 3776210-16-2024 09:18-0400 Body rzdbxy02.46 kgNedra Calderon MD Work Phone: 1(925)[address] [place], [place] 1291310-16-2024 09:18-0400 Diastolic blood usakwapk76 mm[Hg]Nedra Calderon MD Work Phone: [phone])[address]10-16-2024 09:18-0400 Heart rate67 /Wilner Calderon MD Work Phone: 1(394)666-[address] [place], [place] 3776210-16-2024 09:18-0400 Systolic blood jfhbkxix456 mm[Hg]Nedra Calderon MD Work Phone: 1(001)668-[address] [place], [place] 3776204-23-2024 15:27-0400 Body hnxohx091.26 cmPark[facility]04-23-2024 15:27-0400Body mass index (BMI) [Ratio]28.2 kg/g8VhyuoxqvcParkview Health [facility]pelier [facility]04-23-2024 15:27-0400Body emwvsndtkpp83.1 [degF][facility]04-23-2024 15:27-0400Body zqafvs56.74 kgParkview Health [facility]04-23-2024 15:27-0400Heart rate63 /[facility]04-23-2024 15:27-0400Respiratory rate18 /[facility]04-23-2024 15:27-9507CpM4% (BldA) [Mass fraction]99 %[facility] 07-31-2022 10:54-0500Body uhydsp100.26 cmHedrick Medical Centerique A Uriarte Work Phone: mp-[employer]Jo[facility] Work Phone: 1(833) 654-715601-13-2023 10:54-0500Body mass index (BMI) [Ratio] 31.01 kg/f7Bdinjck A Uriarte Work Phone: mp-[employer] Work Phone: 1(530) 262-902701-13-2023 10:54-0500Body surface area Derived from formula2.11 e1Ixnktbq A Gencia Work Phone: mp-[employer] Work Phone: 1(533) 628-244301-13-2023 10:54-0500Body zbueibapkwa85.6 [degF] Koffi A Uriarte Work Phone: mpIverson Genetic DiagnosticsJoelton Work Phone: 1(351) 577-279701-13-2023 10:54-0500Body hzlign65.26 kgHedrick Medical Centerique A Uriarte Work Phone: mp-[employer] Work Phone: 1(550) 398-623701-13-2023 10:54-0500Diastolic blood avbtyxxr82 mm[Hg] Koffi A Uriarte Work Phone: mpMineralRightsWorldwide.comJoelton Work Phone: 1(713) 555-146701-13-2023 10:54-0500Heart rate76 /minMonique A Uriarte Work Phone: mp-[employer] Work Phone: 1(890) 809-487601-13-2023 10:54-0500Respiratory rate18 /minMonique A Gencia Work Phone: mp-[employer] Work Phone: 1(281) 723-388501-13-2023 10:54-0500Systolic blood owzrpdku749 mm[Hg] Koffi A Gencia Work Phone: mp-[employer] Work Phone: 1(682) 675-300306-08-2022 11:32-0400Body .26 cmMonique A Chapito Work Phone: mp985-9946NU-Shlvuygwp-[facility] DO Work Phone: 1(466) 107-562106-08-2022 11:32-0400Body mass index (BMI) [Ratio] 31.03 kg/g8Zvsiqti A Chapito Work Phone: mp262-8857LF-Jrjesxjif-[facility] DO Work Phone: 1(152) 782-715506-08-2022 11:32-0400Body surface area Derived from formula2.11 g8Cxjqpos A Chapito Work Phone: mp659-6473FA-Gwwpgeiay-[facility] DO Work Phone: 1(334) 982-731206-08-2022 11:32-0400Body kacewczceqc44.1 [degF] Koffi A Chapito Work Phone: mp446-7070WZ-Ttulzzaty-[facility] DO Work Phone: 1(865) 191-380406-08-2022 11:32-0400Body lwibuv67.3 kgMonique A Chapito Work Phone: mp956-6735ZM-Aqwakfsho-[facility] DO Work Phone: 1(224) 363-608906-08-2022 11:32-0400Diastolic blood mm[Hg] Koffi Alison Uriarte Work Phone: mp635-3054HJ-Evxhkwqod-[facility] DO Work Phone: 1(268) 501-974306-08-2022 11:32-0400Heart rate54 /minMonique A Chapito Work Phone: mp228-4212ET-Rhgzkdobd-[facility] DO Work Phone: 1(567) 202-923106-08-2022 11:32-4391DiO6% (BldA) [Mass fraction]100 % Koffi Uriarte Work Phone: mp514-2254JD-Hflgtlfjp-[facility] DO Work Phone: 1(195) 547-426006-08-2022 11:32-0400Systolic blood symdyqxd696 mm[Hg] Koffi A Chapito Work Phone: mp095-7014IC-FxwfxlffgGaebler Children's Center DO Work Phone: 1(634) 173-246905-02-2022 13:08-0400Body wvcedd445.72 cmMonique A Chapito Work Phone: mp-[facility]-[place] Work Phone: 1(102) 392-624705-02-2022 13:08-0400Body mass index (BMI) [Ratio] 32.39 kg/v4Mglamme A Chapito Work Phone: mp-[facility] Work Phone: 1(448) 221-235205-02-2022 13:08-0400Body surface area Derived from formula2.1 a7Modumtg A Chapito Work Phone: mp-[facility] Work Phone: 1(201) 836-859105-02-2022 13:08-0400Body dkzosesniou72 [degF]Koffi A Chapito Work Phone: mp-[facility] Work Phone: 1(327) 213-450405-02-2022 13:08-0400Body .62 kgMonique A Chapito Work Phone: mp-[facility] Work Phone: 1(411) 761-587205-02-2022 13:08-0400Diastolic blood tixbaqat98 mm[Hg] Koffi A Chapito Work Phone: 1(623) 414-8964996-4702AY-LGWF-[place] Work Phone: 1(164) 298-972405-02-2022 13:08-0400Heart rate70 /minMonique A Uriarte Work Phone: 1(205) 541-3171079-5074OD-JAYZ-[place] Work Phone: 1(142) 586-452705-02-2022 13:08-0400Respiratory rate18 /minMonique A Chapito Work Phone: mp-[facility] Work Phone: 1(100) 503-643205-02-2022 13:08-5916YqF7% (BldA) [Mass fraction]96 % Koffi Uriarte Work Phone: mp-[facility] Work Phone: 1(647) 914-537205-02-2022 13:08-0400Systolic blood xkuokskh379 mm[Hg] Koffi Uriarte Work Phone: mp-[facility] Work Phone: 1(390) 756-489612-08-2021 10:54-0500Body gapwbz049.72 cmMonique A Uriarte Work Phone: mp677-0362QM-Ojqmjfkwa-Eugene W DO Work Phone: 1(459) 204-728912-08-2021 10:54-0500Body mass index (BMI) [Ratio] 32.08 kg/m9Ivuaivd A Uriarte Work Phone: mp644-6324DY-Vcobgbudt-[facility] DO Work Phone: 1(265) 455-682512-08-2021 10:54-0500Body surface area Derived from formula2.09 l4Hydxlzi A Uriarte Work Phone: mp801-0723AL-Jjpkpkdpo-Lamar SJW DO Work Phone: 1(410) 501-707112-08-2021 10:54-0500Body akyteijkkyw22.1 [degF] Koffi Clementeson Work Phone: mp541-0662HJ-Bbxsxybjn-Eugene W DO Work Phone: 1(176) 955-122912-08-2021 10:54-0500Body wsddoq39.71 kgMonique A Uriarte Work Phone: mp654-4051AW-Heyopqaex-Eugene W DO Work Phone: 1(816) 864-614712-08-2021 10:54-0500Diastolic blood adguympy18 mm[Hg] Koffi Clementeson Work Phone: mp464-6756SY-Cfqbvkhec-Eugene W DO Work Phone: 1(492) 148-709112-08-2021 10:54-0500Heart rate67 /minMonique A Chapito Work Phone: mp791-3299CI-Revqxmfxi-[facility] DO Work Phone: 1(555) 424-163012-08-2021 10:54-0500Respiratory rate18 /minMonique A Chapito Work Phone: mp789-1563XM-Sbfagckio-[facility] DO Work Phone: 1(942) 608-958212-08-2021 10:54-6741HyR9% (BldA) [Mass fraction]99 % Koffi Uriarte Work Phone: mp335-2778ZC-Fqatsfxxb-[facility] DO Work Phone: 1(120) 100-829612-08-2021 10:54-0500Systolic blood jtzsvyqt428 mm[Hg] Koffi Uriarte Work Phone: mp857-1303DG-MwknobznsLamar SJW DO Work Phone: 1(713) 224-908511-02-2021 15:59-0400Body .72 cmMonique A Uriarte Work Phone: mp-[employer] Work Phone: 1(790) 303-746711-02-2021 15:59-0400Body mass index (BMI) [Ratio] 31.93 kg/c2Iagpnil A Chapito Work Phone: mp-[employer] Work Phone: 1(742) 775-200711-02-2021 15:59-0400Body surface area Derived from formula2.09 k5Cwksbvc A Uriarte Work Phone: mp-[employer] Work Phone: 1(675) 499-930211-02-2021 15:59-0400Body vnywgghfzmw47.1 [degF] Koffi A Uriarte Work Phone: mp-[employer] Work Phone: 1(186) 760-671911-02-2021 15:59-0400Body vggnyw89.26 kgMonique A Uriarte Work Phone: mp-[employer] Work Phone: 1(133) 832-511011-02-2021 15:59-0400Diastolic blood ifnaccos69 mm[Hg] Koffi A Chapito Work Phone: mp-WSPCTensha TherapeuticsJoelton Work Phone: 1(891) 419-114111-02-2021 15:59-0400Heart rate72 /minMonique A Uriarte Work Phone: mp-WSPCTensha TherapeuticsJo[facility] Work Phone: 1(505) 372-604311-02-2021 15:59-0400Respiratory rate16 /minMonique A Uriarte Work Phone: mp-WSPCTensha TherapeuticsJo[facility] Work Phone: 1(470) 924-599511-02-2021 15:59-0400Systolic blood tgktfaaj187 mm[Hg] Koffi A Uriarte Work Phone: mp-WSPCTensha TherapeuticsJoelton Work Phone: 1(925) 456-908706-08-2021 14:45-0400Body npgxra093.72 cmMonique A Uriarte Work Phone: mp-WSPCTensha TherapeuticsJo[facility] Work Phone: 1(117) 778-549406-08-2021 14:45-0400Body mass index (BMI) [Ratio] 30.71 kg/x1Qfabczd A Uriarte Work Phone: mp-[facility]SPCTens[facility] TherapeuticsJo[facility] Work Phone: 1(353) 985-806706-08-2021 14:45-0400Body surface area Derived from formula2.05 q1Zdkeeda A Uriarte Work Phone: mp-WSPCTensha TherapeuticsJo[facility] Work Phone: 1(419) 816-255806-08-2021 14:45-0400Body bcubboelbvw55.8 [degF] Koffi A Uriarte Work Phone: mp-[facility]SPCTens[facility] TherapeuticsJo[facility] Work Phone: 1(410) [phone] 14:45-0400Body aualhe99.63 kgMonique A Gencia Work Phone: mp-[facility]SPCTensha TherapeuticsJo[facility] Work Phone: 1(578) 378-388906-08-2021 12:59-0400Body rpzwhi309.72 cmMonique A Uriarte Work Phone: mp-WSPCTensha TherapeuticsJennifer Ruby Work Phone: 1(259) 261-976406-08-2021 12:59-0400Body mass index (BMI) [Ratio] 30.71 kg/w7Seklcxl A Uriatre Work Phone: mp-[facility]SPCTens[facility] TherapeuticsJo[facility] Work Phone: 1(134) 735-742006-08-2021 12:59-0400Body surface area Derived from formula2.05 s2Qytemjw A Uriarte Work Phone: mp-[facility]SPCTens[facility] TherapeuticsJo[facility] Work Phone: 1(935) [phone] 12:59-0400Body pketerxjjua48.2 [degF] Koffi A Uriarte Work Phone: mp-[facility]SPCTens[facility] TherapeuticsJo[facility] Work Phone: 1(744) 531-383206-08-2021 12:59-0400Body .63 kgMonique A Uriarte Work Phone: [facility] Work Phone: 1(588) 697-877406-08-2021 12:59-0400Diastolic blood zxizegns48 mm[Hg] Koffi A Uriarte Work Phone: [facility] Work Phone: 1(229) 645-918106-08-2021 12:59-0400Heart rate75 /minMonique A Uriarte Work Phone: [facility] Work Phone: 1(815) [phone] 12:59-0400Respiratory rate16 /minMonique A Uriarte Work Phone: [facility] Work Phone: 1(227) 524-639106-08-2021 12:59-0400Systolic blood ihaoltpg994 mm[Hg] Koffi Uriarte Work Phone: [facility] Work Phone: 1(849) [phone] 13:26-0500BMI (Body Mass Index)29.04 kg/m2 Koffi UriarteZzkdizwuqzLI-Wpcnmduqt-Jbbkgpnf SJW DO Work Phone: 1(480) [phone] 13:26-0500Body Nsgbcjsgper43.5 [degF] Koffi TavarezEyqeqyikqcKW-Lccyeocha-Wrzmczcj SJW DO Work Phone: 1(996) 565-888601-27-2021 13:26-0500Body bcxepf14.64 kgKoffi UriarteBemcsrtqguHJ-Dbhljpwng-Lnhcaaun SJW DO Work Phone: 1(650) 386-856001-27-2021 13:26-0500BP Izaiisymi791 mm[Hg]Koffi TavarezHivuhmomqdAL-Bdkwmcsmu-Ovnbhqhh SJW DO Work Phone: 1(947) [phone] 13:26-0500BP Kqjqjwxn824 mm[Hg]Koffi TavarezDkssafbeawKX-Zcufupgph-Wjnahyam SJW DO Work Phone: 1(978) [phone] 13:26-0500BSA (Body Surface Area)2 m2 Koffi UriarteGxqgcqjrkaOI-Ivsjpczwu-Tekjuicr SJW DO Work Phone: 1(119) 897-369201-27-2021 13:26-4898Emzyhm812.72 cmKoffi Uriarte QW-Jylczcgda-Fzxcdgxe W DO Work Phone: 1(514) 405-264911-10-2020 15:24-0500BMI (Body Mass Index)28.59 kg/m2 Koffi TavarezUstejaoejnIQ-REGB-[place] Work Phone: 1(479) 331-706511-10-2020 15:24-0500Body Fborzncfibh61.6 [degF] Koffi TavarezYxuojroddhMD-WEYQ-[place] Work Phone: 1(810) 681-713811-10-2020 15:24-0500Body omzydn26.28 kgKoffi UriarteIevdzhyryrID-WQAR-[place] Work Phone: 1(932) 674-329311-10-2020 15:24-0500BP Ymxyzfmbe71 mm[Hg]Koffi TavarezKlygdfmbseFJ-NBGQ-[place] Work Phone: 1(415) 510-566111-10-2020 15:24-0500BP Tsiiygba256 mm[Hg]Koffi ClementeYryuucpctdFM-HMYN-[place] Work Phone: 1(705) 237-127711-10-2020 15:24-0500BSA (Body Surface Area)1.99 m2 Koffi TavarezDxjtucrqsxAW-YFTX-[place] Work Phone: 1(658) 406-370511-10-2020 15:24-0502Nxupmm419.72 cmKoffi Uriarte YI-HOUP-[place] Work Phone: 1(818) 258-109111-10-2020 15:24-0500Pulse (Heart Rate)70 /minHedrick Medical Centerminesh UriarteXmhbhcpaaiCX-RPMP-[place] Work Phone: 1(905) 259-823611-10-2020 15:24-0500Respiratory Rate18 /minHedrick Medical Centerminesh UriarteZhiiseomckEC-IXXN-[place] Work Phone: 1(769) 104-410510-08-2020 16:01-0400BMI (Body Mass Index)28.59 kg/m2 Koffi UriarteUkowhtzoubRI-ZEZE-[place] Work Phone: 1(561) 168-978910-08-2020 16:01-0400Body Qzajvoeakwc31.6 [degF] Koffi UriarteImlaixfsslNU-LNHJ-[place] Work Phone: 1(699) 171-439610-08-2020 16:01-0400Body renrqh72.28 kgKoffi UriarteRhnsepmhboGW-BADL-[place] Work Phone: 1(634) 977-994710-08-2020 16:01-0400BP Ddrccoomj092 mm[Hg]Koffi UriarteSkcvttcfvsPG-LFCH-[place] Work Phone: 1(455) 862-452610-08-2020 16:01-0400BP Vpycuspy999 mm[Hg]Koffi TavarezHlgxvbmyyfWB-FRNZ-[place] Work Phone: 1(247) 261-586610-08-2020 16:01-0400BSA (Body Surface Area)1.99 m2 Koffi TavarezOuklssjuriGN-CVKM-[place] Work Phone: 1(639) 972-294610-08-2020 16:01-7153Xyvxhs731.72 cmKoffi Uriarte WS-YXLW-[place] Work Phone: 1(520) 430-669010-08-2020 16:01-0400Pulse (Heart Rate)76 /Felipa Tavarez-WSPC-[place] Work Phone: 1(478) 199-549810-08-2020 16:01-0400Respiratory Rate16 /minKoffi TavarezTdeaaixzbnSG-QCWV-[place] Work Phone: 1(489) 861-267910-02-2020 00:00-0400BP Gatdxozfg68 mm[Hg][facility], LG32-45-4483 00:00-0400BP Mezdebkh053 mm[Hg][facility], IV01-34-8491 22:17-0400BMI (Body Mass Index)28.06 kg/w8VbbplyfWashington Health System, ZO99-53-7531 22:17-0400Body Tsqwvcqpxtn93.91 [degF][facility], VC25-79-1770 22:17-0400Body .18 kgWashington [facility] System, ON47-07-5372 22:17-2006Gvlrhw037.3 cmWashington [facility], CA20-91-7825 22:17-0400Pulse (Heart Rate)105 /[place], [place] 04-18-2020 22:17-0400Pulse Cxxlkkac88 %[place] 04-18-2020 22:17-0400Respiratory Rate16 /minWashington Health System, [place] Encounters Encounter DateEncounter TypeCare ProviderFacilityStart: 04-30-2025 End: 25-13-7053Bsclmidavid VILLEDA Work Phone: [facility] OBGYNStart: 04-30-2025 End: 53-42-9224Traubrdavid VILLEDA Work Phone: no [facility] OBGYNStart: 04-30-2025 End: 10-29-2743ebowbofioxXJH Jared AvailableStart: 04-30-2025 End: 27-76-6243Bvgtdhcd flow sheetRoula VILLEDA Work Phone: noms [place] OBGYNComment on above:Second trimester ([facility]); 24 weeks gestation of ([facility]); Hypertension, unspecified type; Seizure ([facility]); Diabetes mellitus screeningStart: 04-07-2025 End: 44-48-7497Qtylxmyxv Result EncounterRoula VILLEDA Work Phone: noms External Department UnsolicitedStart: 04-07-2025 End: 02-88-4513Ndsdusktg Result EncounterRoula VILLEDA Work Phone: noms External Department UnsolicitedStart: 04-04-2025 End: 44-03-7767Rzpmhoma flow sheetCorey April DO Work Phone: n[facility] G[facility]elle OBGYNComment on above:20 weeks gestation of ([facility]); Second trimester ([facility])Start: 04-04-2025 End: 59-34-4148ydgeznzsqfWUNPD FAZIONot AvailableStart: 04-04-2025 End: 23-29-8074Utwzqfsmx Result EncounterCorey April DO Work Phone: noms External Department UnsolicitedStart: 04-04-2025 End: 70-86-8126Pbetwvpen Result EncounterCorey April DO Work Phone: noms External Department UnsolicitedStart: 03-14-2025 End: 27-32-5711aegnnrzdphDLS Jared AvailableStart: 03-07-2025 End: 61-23-1221Jroheil encounter procedureRoula VILLEDA Work Phone: [facility] Work Phone: Start: 03-07-2025 End: 24-28-2234Bmjdegvj flow sheetRoula VILLEDA Work Phone: [facility] OBGYNComment on above:Well woman exam with routine gynecological exam; Second trimester ([facility]); 16 weeks gestation of ([facility]); Vaginal discharge; STD exposure; Screening, , for anatomic survey ([facility])Start: 03-07-2025 End: 80-73-6801bqejbjcchlEOU MITCHELTaylor AvailableStart: 03-07-2025 End: 58-92-2024Ieftpt flowsheetRoula VILLEDA Work Phone: [facility] OBGYNStart: 03-07-2025 End: 08-21-9353Vcyfcf flowsheetRoula VILLEDA Work Phone: [facility] OBGYNStart: 03-07-2025 End: 93-43-1160Zjstfwnsd Result EncounterRoula VILLEDA Work Phone: NOKO External Department UnsolicitedStart: 03-07-2025 End: 97-35-1460Ajvgiznk Result EncounterRoula Rochester PA Work Phone: NOLU External Department UnsolicitedStart: 02-21-2025 End: 15-84-7777yxunhujchrBVQLK FAZIONot AvailableStart: 02-07-2025 End: 60-85-1064Ucnnytba flow sheetCorey April DO Work Phone: NOML [facility] OBGYNComment on above:First trimester ([facility]); 12 weeks gestation of ([facility]); Missed menses; Subchorionic hematoma in second trimester, single or unspecified fetus ([facility]) Start: 02-07-2025 End: 61-77-2947qwcotphfimZAFDJ FAZIONot AvailableStart: 02-07-2025 End: 65-75-9541Yyfuui flowsheetCorey April DO Work Phone: [facility] BCP OBStart: 02-07-2025 End: 00-70-9178Bljteq flowsheetCorey April DO Work Phone: [facility] BCP OBStart: 02-01-2025 End: 45-34-8959Glutxg Tim VILLEDA Work Phone: [facility] BCP OBStart: 02-01-2025 End: 61-25-8400Cudmtc Tim VILLEDA Work Phone: [facility] BCP OBStart: 02-01-2025 End: 35-50-5065Mrqfwo outpatient visit 15 minutesRoula VILLEDA Work Phone: [facility] BCP OBComment on above:Nausea and vomiting, unspecified vomiting type (Primary Dx); First trimester ([facility]); 11 weeks gestation of ([facility])Start: 02-01-2025 End: 63-97-0278dtujggxtrmBIY MITCHELNot AvailableStart: 01-22-2025 End: 37-03-9760Ugykvetss Result EncounterCorey April DO Work Phone: noms External Department UnsolicitedStart: 01-22-2025 End: 91-01-7636Qcnxkgzda Result EncounterCorey April DO Work Phone: noMS External Department UnsolicitedStart: 01-12-2025 End: 32-60-7962Eimdsv outpatient visit 5 minutesFazio Nurse Noms Bcp ObNOMS BCP OBComment on above:GA: 3k9xLlcvs: 01-12-2025 End: 43-30-5110brdpahysmdYSN RAMEYNot AvailableStart: 09-12-2024 End: 66-54-6489Jrbefu outpatient visit 25 minutesMonminesh Uriarte MD Work Phone: [facility] Primary CareComment on above:Benign essential hypertension (Primary Dx); Seizure (Multi); Vitamin B12 deficiency; Fatigue, unspecified type; Well adult health check; Vitamin D deficiencyStart: 09-12-2024 End: 79-37-7877Majzrqs encounter statusKoffi Uriarte MD Work Phone: [facility] Work Phone: Start: 09-12-2024 End: 29-24-3015kggixowyyuKXUTLYL A RICHARDSONAv[facility] Start: 09-12-2024 End: 52-74-9212Rhmonfhkb for general adult medical examination without abnormal findingsMONLIFEBRITE [facility] A [facility] AmbulatoryStart: 05-03-2024 End: 50-10-4003Fnchkk outpatient visit 25 minutesNedra Calderon MD Work Phone: [facility] HospitalComment on above:Seizure (Multi) (Primary Dx)Start: 05-03-2024 End: 91-57-3639vrkemdxpfpVLSAWW M [facility]ASKUniversity [facility] AmbulatoryStart: 04-13-2024 End: 01-35-7320jajukdridjEbczxkp HARWOODFacility:FTMCStart: 03-30-2024 End: 68-68-4351chmemfvfgoZnee T AMESFacility:FTMCStart: 12-15-2023 End: 58-09-8397tqcgjeyerbYect ProviderFacility:[facility] Hospitaltart: 11-09-2023 End: 14-44-3100ieouwycimeQynpktrhmMercy Health [facility] Work Phone: Start: 11-09-2023 End: 48-57-1677Wdgbeib encounter procedureCaromont Health Phys[facility] Guy Work Phone: Start: 08-04-2023 End: 08-22-8920nnttsqioplYfsvm FazioFacility:[facility] Start: 08-03-2023 End: 06-19-5569Njtmfpucx Result EncounterCorey April DO Work Phone: noms External Department UnsolicitedStart: 08-03-2023 End: 61-11-8640Frhkipqgq Result EncounterCorey April DO Work Phone: noms External Department UnsolicitedStart: 07-26-2023 End: 68-63-7994Fimsghcoy Result EncounterCorey April DO Work Phone: noms External Department UnsolicitedStart: 07-26-2023 End: 31-79-7642Nihpiyogi Result EncounterCorey April DO Work Phone: noms External Department UnsolicitedStart: 07-20-2023 End: 10-81-8943Ambeedzik Result EncounterCorey April DO Work Phone: noms External Department UnsolicitedStart: 07-20-2023 End: 24-41-5539Nmnsprybv Result EncounterCorey April DO Work Phone: noms External Department UnsolicitedStart: 07-11-2023 End: 91-63-9093Svqqtrlsx Result EncounterCorey April DO Work Phone: noms External Department UnsolicitedStart: 07-11-2023 End: 78-45-4104Jqgoninly Result EncounterCorey April DO Work Phone: noms External Department UnsolicitedStart: 04-30-2023 End: 53-37-9923Tbwfjw outpatient visit 15 minutesNedra Calderon MD Work Phone: uh [facility] AvistaComment on above:Seizure (CMS/HCC) (Primary Dx)Start: 11-25-2022 End: 34-70-2576kcugthmmguWN WILLIS APRIL .Facility:X3Wxayg: 11-16-2022 End: 53-62-3588rgeizpmbhsGS WILLIS APRIL .Facility:Y3Zozsf: 23-91-6490Acbdcmm tobacco non-user cad cap copd pv dmMonique A Uriarte Work Phone: [facility] Work Phone: Start: 18-27-0255Qvcqfgfe preventive med est patient 18-39 yrsMonique A Uriarte Work Phone: [facility] Work Phone: Start: 48-20-1119jqubqlmkyfYw. Koffiminesh Uriarte Facility:[id number]: 04-16-2022 End: 15-42-1343cdzuxasgdgFGZJVS K BICANOVSKYFacility:[facility] Start: 56-15-6199Cmudjlbtt encounterLesley K Bicanovsky DO Work Phone: OB/GynecologyComment on above:Bleeding With Start: 03-24-2022 End: 23-37-2319Rplopvp encounter Harsh Hassan [facility] Start: 71-67-3242Dnalcqavs encounterTammy Ryannikki [place] Work Phone: CB/GynecologyComment on above:AppointmentStart: 35-78-3294DGWSVXefkinz A Uriarte Work Phone: [phone]-Mgnvxwohc-Lamar SJ DO Work Phone: Start: 62-29-0199uyrqgpuxtwWvpw Glasenapp PA-C Work Phone: OB/GynecologyComment on above:Bacteria VaginosisStart: 60-69-0917MJWDTYxnfskn A Uriarte Work Phone: [facility] Work Phone: Start: 49-15-5812Axpxao outpatient visit 15 minutes Koffi A Uriarte Work Phone: [phone]-GhzdzpclgSeekPanda DO Work Phone: Start: 63-93-6097Tmgawd outpatient visit 15 minutes Koffi A Uriarte Work Phone: mp-[place] Work Phone: Start: 04-08-7396YBZOFZxrzcvz A Uriarte Work Phone: mp-TheCreator.MEJoel[place] Work Phone: Start: 09-09-2021 End: 92-55-7125wsmrabvqfhDUIL GLASENAPPFacility:[facility]art: 07-04-2021 End: 37-11-5289yfbcsbfmgdZYRYX NEMETHFacility:[facility]art: 51-50-1182Iuwthpvve for gynecological examination (general) (routine) without abnormal findingsTAMMY [facility] CenterStart: 79-35-1753Hiizza outpatient visit 25 minutesMonique A Uriarte Work Phone: [phone]-Shqyyavpp-Eugene SJW DO Work Phone: Start: 13-52-8585Ktmvo UpdateMonique A Uriarte Work Phone: mp-[facility] Work Phone: Start: 94-43-3774Qfaumg outpatient visit 25 minutes Koffi A Uriarte Work Phone: mp-[facility] Work Phone: Start: 71-30-5235Trfdshb encounter procedureMonique A Uriarte Work Phone: mp-[facility] Work Phone: Start: 15-20-7174PUANMNmzoxfr A Uriarte Work Phone: mp-[facility] Work Phone: Start: 54-25-7423Ggtug UpdateMonique A Uriarte Work Phone: mp-[facility] Work Phone: Start: 08-96-7955Fatanv outpatient visit 25 minutes Koffi A Uriarte Work Phone: mp-[facility] Work Phone: Start: 75-90-8888Tecolgs encounter procedureMonique LhcumqeeblMT-Jqbucvnbz-Wupqpmot SJW DO Work Phone: Start: 82-29-5978Wqifejx encounter procedureMonique XnflxrwavmDE-Ibubyegfz-Eikxzjkk SJW DO Work Phone: Start: 77-78-8233Nykhsnh encounter procedureMonique DokazyovftBF-SBBY-[place] Work Phone: Start: 05-09-2020 End: 17-54-4349Qnkzhjw encounter procedureDARehoboth McKinley Christian Health Care Servicestart: 05-09-2020 End: 67-58-1015Nnweyrfdkq hospital visit by physicianLorannita Neuro Rm 1EEGComment on above:ArrivedNonintractable generalized idiopathic epilepsy without status epilepticus (HCC)Start: 14-09-7259Vmjvobb encounter procedureMonminesh Uriarte [employer] Work Phone: Start: 04-19-2020 End: 43-54-3074Uemsmudfq department patient visitMICAMANDO Coreas [facility] Hospitaltart: 04-18-2020 End: 41-14-5937Uclzwqgbz department patient visitMicdaquan Curran Work Phone: [facility] EDComment on above:Seizure (HCC) (Primary Dx)Start: 99-85-3792Kdnneyt encounter procedureMonminesh Uriarte [employer] Work Phone: Start: 01-36-8477TqxgvliacwMqmgwvc A Richardson Facility:[place]eePatient encounter statusMonique Alison Uriarte Work Phone: [phone]-KHUJWebPesados Work Phone: Procedures DateProcedureProcedure DetailPerforming ClinicianStart: 82-66-2824Pnmxg dip stick/tablet rgnt non-auto w/o micrscpAmy Mitchel VILLEDA Work Phone: Start: 87-76-0745CVE, SERUM, OPEN SPINA BIFIDAAmy Mitchel VILLEDA Work Phone: Start: 34-58-7531Cboke dip stick/tablet rgnt non-auto w/o micrscpCorey April DO Work Phone: Start: 64-01-4001AP OB ANATOMYCorey April DO Work Phone: Start: 95-31-8415CV OB CERVICAL LENGTHCorey April DO Work Phone: Start: 93-29-6431EIZLXNPCB VAGINITIS (HTRX)Roula VILLEDA Work Phone: Start: 44-55-1702Mofky dip stick/tablet rgnt non-auto w/o micrscpAmy Mitchel VILLEDA Work Phone: Start: 60-01-3215VJT,APTIMA HPV,AGE GDLNAmy Mitchel VILLEDA Work Phone: Start: 80-72-3159Evbjeyxodig observation [Identifier] in Cervix by Cyto stainCorey April DO Work Phone: Start: 03-02-4445Hrxiy dip stick/tablet rgnt non-auto w/o micrscpCorey April DO Work Phone: Start: 00-91-8565MZJ TESTCorey April DO Work Phone: Start: 01-12-2025 End: 16-67-3904Azwzo dip stick/tablet rgnt non-auto w/o micrscpCorey April DO Work Phone: Start: 811001-sasemftqvmazmd D3 [Mass/volume] in Serum or PlasmaMonique Alison Uriarte MD Work Phone: Start: 13-51-1735Elaobsmew (Vitamin B12) [Mass/volume] in Serum or PlasmaMonique Alison Uriarte MD Work Phone: Start: 08-39-7188Vqktzorg blood countMonique Alison Uriarte MD Work Phone: Start: 33-77-9795Lkhvewqlqassd metabolic panelMonique Alison Uriarte MD Work Phone: Start: 51-71-5271Urtos panelMonique Alison Uriarte MD Work Phone: Start: 12-69-0424OJI WITH REFLEX TO FREE T4 IF ABNORMALMonique Alison Uriarte MD Work Phone: Start: 10-40-0915Etmdo 1996 panel - Serum or Plasma Koffi Chapito REINOSO Work Phone: Start: 08-26-7038HN OB BPP W NON-STRESSCorey April DO Work Phone: Start: 68-65-1579LH OB BPP W NON-STRESSCorey April DO Work Phone: Start: 85-46-7019OE OB BPP W NON-STRESSCorey April DO Work Phone: Start: 54-10-4121KI OB GROWTHCorey April DO Work Phone: Start: 87-81-8731ZX OB BPP W NON-STRESSCorey April DO Work Phone: Start: 69-87-5359Ybnnpyhawxc observation [Identifier] in Cervix by Abrahan Calderon MD Work Phone: Start: 01-44-3183Altshjlzplt observation [Identifier] in Cervix by Cyto stainCorechristina April DO Work Phone: Start: 01-90-6003Sigraxawanr [Units/volume] in Serum or PlasmaNedra Calderon MD Work Phone: Start: 18-97-3708RVB W Auto Differential panel - Blood Koffi RichardsonStart: 74-80-2370Fqhonvhsibgjz metabolic 2000 panelMonique RichardsonStart: 47-31-8037Urptvhgwaqxd drug not elsewhere specifiedMonique RichardsonStart: 49-94-0995Kkgxdljzvpy observation [Identifier] in Cervix by Abrahan Calderon MD Work Phone: Start: 42-03-4447XlrfykcgksqdrmianuwdCPABJTS MAHAJAN Start: 03-99-1656REIQWIPKP REPORTDARSLUIS GARCIAStart: 70-69-8896BBEDNVEFK REPORTHpf ScanningStart: 96-96-8284Dct brain brain stem w/o w/contrast material SPIKE GARCIAStart: 18-27-5940Drwvwukckshoqtplfksu w/rec awake&drowsyDAJENNIFER GARCIAStart: 01-67-2645Bka brain brain stem w/o w/contrast materialSpike Garcia Work Phone: Start: 86-58-0628Cxmfzwxumdbmmzyqiuho w/rec awake&drowsyDarshan Leif Work Phone: Start: 04-38-0364Iiond of lactateMICHELE AMIEY Start: 20-77-5996Mcodt of prolactinMICHELE RALOFSKYStart: 38-36-2466Ew head/brain w/o contrast materialMICHELE RALOFSKYStart: 15-11-0340Xohnbzbcvm microscopic onlyMICHELE RALOFSKYStart: 38-98-1346Ankan dip stick/tablet rgnt auto w/o microscopyMICHELE RALOFSKYStart: 63-57-6203Dfosp count complete auto&auto difrntl wbcMICHELE RALOFSKYStart: 35-06-6803Ebwnwnmnvxnmu metabolic panelMICHELE RALOFSKYStart: 04-41-1313Dtopucrupwho chorionic qualitativeMICHELE RALOFSKYStart: 51-62-0622UKRX NPO, NOWMICHELE RALOFSKYStart: 28-89-4300CYPPWRH PRECAUTIONSMICHELE RALOFSKYStart: 43-69-9148YUENAO LOCK IVMICHELE RALOFSKYStart: 51-51-3336Kwmwm of lactateMichael S [place] Work Phone: Start: 95-76-5116Bkbmjybplk microscopic onlyMichael S [place] Work Phone: Start: 43-57-5408Ydkqr dip stick/tablet rgnt auto w/o microscopyMichael S [place] Work Phone: Start: 85-40-8411Mxxjz count complete auto&auto difrntl wbcMichael S [place] Work Phone: Start: 20-07-6303Acwiqopdaqtsl metabolic panelMichael S [place] Work Phone: Start: 00-08-8916Lvtukmgtgahx chorionic qualitative Tu S [place] Work Phone: History of No history of surgeryJackieique Christo history of surgeryMonique A Chapito Work Phone: Plan of Treatment DateCare ActivityDetailAuthorStart: 79-87-1144Livyap Vaccines (1 of 2)Zoster Vaccines (1 of 2)[facility]: 05-79-7240BIrR/Tdap/Td Vaccines (9 - Td or Tdap)DTaP/Tdap/Td Vaccines (9 - Td or Tdap)[facility]: 27-72-8520Guajg panelLipid PanelUnCleveland Clinic Hillcrest [facility]: 83-23-4315Cumyngapi for malignant neoplasm of cervixNOMS HealthcareStart: 74-40-8613NVtL/Tdap/Td Vaccines (8 - Td or Tdap) DTaP/Tdap/Td Vaccines (8 - Td or Tdap)[facility]: 55-86-1645Lbozpseam for malignant neoplasm of cervixUnCleveland Clinic Hillcrest [facility]: 79-41-5136Agykguohl for malignant neoplasm of cervixNOMS HealthcareStart: 05-29-2025 End: 81-12-7070Ygsduhu encounter rjayaaqxn32/11/2025 11:40 AM EST Routine NOMKale [facility] [address] [place] [address] Willis Chen DO [address] [place], [place] [address] JOSY WEBBERNStart: 05-07-2025 End: 46-04-6174Ntepbds encounter vuogsvkll72/20/2025 2:00 PM EDT Office Visit [address] Chiu [address] [place] [address] Nedra Calderon MD [address] [place] [address] Dr Chiu [address], [place] [address] [place] [id number] [facility]Start: 04-30-2025 End: 96-43-7300HDS panel - Blood by Automated countCBC Lab Routine Diabetes mellitus screening Expected: 04/30/2025 (Approximate), Expires: 04/30/2026[facility] Work Phone: comment on above:Expected: 04/30/2025 (Approximate), Expires: 04/30/2026Start: 04-30-2025 End: 85-59-2586Uywqeeqpswo of glucose 1 hour after glucose challenge for glucose tolerance testGlucose tolerance, 1 hour Lab Routine Diabetes mellitus screening Expected: 04/30/2025 (Approximate), Expires: 04/30/2026NOMS HealthcareComment on above:Expected: 04/30/2025 (Approximate), Expires: 04/30/2026Start: 04-30-2025 End: 02-47-8972Bbyuqaz encounter pvshahzyd06/13/2025 9:50 AM EDT Routine NOMKale [facility] [address] [place], [phone] Roula Grullon PA [address] [place] [address] N[facility]S [facility]elle OBGYNStart: 04-04-2025 End: 31-60-0782Oddgfyf encounter zvoxcdfbx04/17/2025 3:10 PM EDT Routine NOMKale [facility] [address] [place], [phone] Willis Chen DO [address] [place] [address] [facility]S [facility]elle OBGYNStart: 80-52-2179LYCVT- 19 Vaccine ( season)COVID-19 Vaccine ( season)[facility] HealthcareStart: 06-15-9482Pznytukha vaccinationInfluenza Vaccine (#1)[facility] HealthcareStart: 03-14-2025 End: 08-49-2327Xpbytujnjgkk / ancillary services bcyeuspnpa41/27/2025 3:00 PM EDT Ancillary Procedure [facility] [address] [place] [phone] [facility] OBGYNStart: 03-07-2025 End: 71-92-0890Pdgzikf encounter procedureNOMS Giselle OBGYNComment on above: ArrivedStart: 03-07-2025 End: 14-31-5130Fscfk fetoprotein, maternalAlpha fetoprotein, maternal Lab Routine Second trimester ([facility]) 16 weeks gestation of ([facility]) Expected: 03/07/2025 (Approximate), Expires: 09/07/2025[facility] Comment on above:Expected: 03/07/2025 (Approximate), Expires: 09/07/2025Start: 03-07-2025 End: 30-72-6353PQ for pregnancyUS OB 14+ weeks anatomy scan Imaging Routine Screening, , for anatomic survey ([facility]) Expected: 03/07/2025, Expires: 06/07/2025NOMI HealthcareComment on above:Expected: 03/07/2025, Expires: 06/07/2025Start: 02-21-2025 End: 31-26-9063Pehtsrgmhxzy / ancillary services ujwgbannpe59/06/2025 3:00 PM EDT Ancillary Procedure [facility] [address] [place] [address] [place] [phone] NOMS Giselle OBGYNStart: 02-12-2025 End: 87-61-8347Xacehso encounter hjyodbjkd34/28/2025 2:20 PM EDT Office Visit [facility] [address] [place] [address] [place] [address] [place], [place] [id number] [facility] Primary CareStart: 02-07-2025 End: 16-69-8210Qbyqxkp encounter procedureNOMS BCP OBComment on above:Arrived Start: 02-07-2025 End: 31-93-2571FJ for pregnancyUS OB less than 14 weeks early Imaging Routine Missed menses Subchorionic hematoma in second trimester, single or unspecified fetus ([facility]) Expected: 02/07/2025, Expires: 05/10/2025[facility] Work Phone: Comment on above:Expected: 02/07/2025, Expires: 05/10/2025Start: 02-01-2025 End: 76-71-5178Zoprzvz encounter vyyxeuozm71/17/2025 9:20 AM EDT Office Visit [facility] OB [address] [phone] Roula Grullon PA [address] [place] [address] [facility] BCP OBComment on above:ArrivedStart: 01-12-2025 End: 86-99-7423XOQ/RhABO/Rh Lab Routine Missed menses , unspecified [facility] age [facility] Expected: 01/12/2025 (Approximate), Expires: 01/12/2026[facility] HealthcareComment on above:Expected: 01/12/2025 (Approximate), Expires: 01/12/2026Start: 01-12-2025 End: 89-07-6347Hmmsb type and Indirect antibody screen panel - BloodType and screen Lab Routine Missed menses , unspecified gestational age ([facility]) Expected: 01/12/2025 (Approximate), Expires: 01/12/2026[facility] Work Phone: comment on above:Expected: 01/12/2025 (Approximate), Expires: 01/12/2026Start: 01-12-2025 End: 12-31-5057Bchwh of abuse panel - Urine by Screen methodRapid drug screen, urine Lab Routine , unspecified gestational age ([facility]) Encounter for supervision of normal first in first trimester ([facility]) Expected: 01/12/2025 (Approximate), Expires: 01/12/2026[facility] HealthcareComment on above: Expected: 01/12/2025 (Approximate), Expires: 01/12/2026Start: 05-03-2024 End: [id number] [Mass/volume] in Serum or PlasmaLamotrigine level Lab Routine Seizure (Multi) Expected: 05/03/2024 (Approximate), Expires: 05/03/2025 [facility] Service Area Work Phone: comment on above:Expected: 05/03/2024 (Approximate), Expires: 05/03/2025Start: [id number]-19 Vaccine ( season)COVID- 19 Vaccine ( season)[facility]: 73-24-3442VATEP-19 Vaccine ()COVID-19 Vaccine ()[facility]: 79-18-7843Dtmwaackh vaccination Influenza Vaccine (#1)[facility]: 10-02-2023 Screening for malignant neoplasm of cervixHPV/CotestNOMS HealthcareStart: [id number], Provider: Koffi Uriarte, Status: Pen, Time: 9:00 AM PHYSICAL, Provider: Koffi Uriarte, Status: Pen, Time: 9:00 [facility] Work Phone: Start: 08-02-2023 End: 08-81-0508Shvgfur encounter isjidnnfl84/15/2024 9:00 AM EST Office Visit [facility] [address] [place] [id number] [place] [id number] [place], [place] [id number] [facility]: 47-48-3544QZA TESTINGPAP TESTINGFlower Hospitaltart: 12-43-1272Hhpzorwds for malignant neoplasm of cervixUpper Valley Medical CenterStart: 12-24-2022 VIRANA LUISA, Provider: Nedra Calderon, Status: Pen, Time: 10:00 AMVIRFUVTORERY, Provider: Nedra Calderon, Status: Pen, Time: 10:00 VPAI-Hwnwpcxzx-Zzshybki [facility] DO Work Phone: Start: 26-59-6614RBOZXQLW, Provider: Koffi Uriarte, Status: Pen, Time: 9:50 AMPHYSICAL, Provider: Koffi Uriarte, Status: Pen, Time: 9:50 IAGC-RHHR-Qzjb [place] Work Phone: Start: 03-24-2022 End: 88-25-6876Sxywmnsgkozvcwbquy.beta subunit [Units/volume] in Serum or Plasma HCG QUANTITATIVE Lab Routine Bleeding in early Expected: 03/24/2022, Expires: 05/24/2022[facility] Work Phone: Comment on above:Expected: 03/24/2022, Expires: 05/24/2022tart: 08-09-3500Oayobakcj vaccinationINFLUENZA (#1)[facility] Start: 28-29-2374Onxnskl stimulating hormone measurementFairfax Community Hospital – FairfaxStart: 66-56-2701AEROWXSGNW, Provider: Nedra Calderon, Status: Pen, Time: 11:30 AMFUVGENERAL, Provider: Nedra Calderon, Status: Pen, Time: 11:30 ZDHH-Pbjrnrgpq-Ujilmfsn SJW DO Work Phone: Start: 06-03-5874UGB, Provider: Koffi Uriarte, Status: Pen, Time: 1:00 PMFUV, Provider: Koffi Uriarte, Status: Pen, Time: 1:00 LHEC-IEUD-Zxfm [place] Work Phone: Start: 79-48-1460BIKTK-19 VACCINE (3 - Booster for Pfizer series)COVID-19 VACCINE (3 - Booster for Pfizer series)[facility] Start: 75-55-7145KFBWMNHXPZ, Provider: Nedra Calderon, Status: Pen, Time: 2:00 PMFUVGENERAL, Provider: Nedra Calderon, Status: Pen, Time: 2:00 BMRC-ADED-Kdcy [place] Work Phone: Start: 30-78-1190AWEYGRKJMN, Provider: Nedra Calderon, Status: Pen, Time: 11:00 AMFUVGENERAL, Provider: Nedra Calderon, Status: Pen, Time: 11:00 ERNF-MFRU-Vkyc [place] Work Phone: Start: 57-79-8069ECT, Provider: Koffi Uriarte, Status: Pen, Time: 3:40 PMFUV, Provider: Koffi Uriarte, Status: Pen, Time: 3:40 EZZJ-KDXS-[place]h [place] Work Phone: Start: 90-72-3539OIF, Provider: Koffi Uriarte, Status: Pen, Time: 2:00 PMFUV, Provider: Koffi Urairte, Status: Pen, Time: 2:00 XJFV-LFNY-Eolv [place] Work Phone: Start: 27-78-5558AXDMW-19 Vaccine (3 - Pfizer series) COVID-19 Vaccine (3 - Pfizer series)[facility]: 66-72-6016RAS Vaccines (1 - 3-dose SCDM series)HPV Vaccines (1 - 3-dose SCDM series)[facility] CenterStunadilla: 16-10-8798Wonvqgfwr vaccinationFlu vaccine (#1) [facility]: 59-81-0870EVoK/Tdap/Td vaccine (7 - Td)DTaP/Tdap/Td vaccine (7 - Td)[facility]: 02-48-3165Ahafv microalbumin profile DTAP,TDAP,TD (7 - Td or Tdap)[facility]: 38-86-0840Vdlhybnty for malignant neoplasm of cervixSum[facility] Health [facility]: 2012 Hepatitis B Vaccines (1 of 3 - 19+ 3-dose series)Hepatitis B Vaccines (1 of 3 - 19+ 3-dose series)[facility] CenterStart: 58-46-3673GHFLEGAQL C SCREENINGHEPATITIS C SCREENINGFlower Hospitaltart: 32-02-8841Fqhosxtaj C screeningHepatitis C ScreeningUpper Valley Medical CenterStunadilla: 52-64-6805AHX SCREENINGHIV SCREENINGFlower Hospitaltart: 37-43-2955RQK screeningHIV screenAshtabula [facility] Medical Center: 36-04-2969Dwhxfvd of varicella vaccinationVaricella Vaccines (1 of 2 - 13+ 2-dose series)[facility]: 41-93-4821Ifffvkeob vaccination Varicella Vaccines (1 of 2 - 13+ 2-dose series)[facility] Start: 23-38-2624Yhlku depression screening assessmentDEPRESSION SCREENING [facility]: 25-74-1099MJZ vaccine (1 - 2-dose series)HPV vaccine (1 - 2-dose series)[facility]: 92-87-0307DEdT/Tdap/Td Vaccines (1 - Tdap)DTaP/Tdap/Td Vaccines (1 - Tdap)[facility]: 62-57-0149Kwcqixcmt vaccinationVaricella Vaccines (1 of 2 - 2-dose childhood series)[facility]: 62-17-1087ZKR Vaccines (1 of 1 - Standard series) MMR Vaccines (1 of 1 - Standard series)[facility] CenterStart: 58-76-5184Qiqwwuevg vaccine (1 of 2 - 2-dose childhood series)Varicella vaccine (1 of 2 - 2-dose childhood series)[facility]: 83-26-8138CLC screeningHIV Screening [facility]: 78-09-1940Xmojd panelLipid Panel [facility]: 42-33-9309Xidspg Adult PhysicalYearly Adult PhysicalUnTriHealth Bethesda Butler HospitalBacteria identified in Urine by CultureUrine culture Microbiology Routine Missed menses Ordered: 01/12/2025[facility] HealthcareComment on above:Ordered: 01/12/2025BC W Auto Differential panel - BloodCBC and differential Lab Routine Missed menses , unspecified gestational age ([facility]) Ordered: 01/12/2025[facility] HealthcareComment on above: Ordered: 01/12/2025HLAMYDIA TRACHOMATIS (GENITO/STI)CHLAMYDIA TRACHOMATIS (GENITO/STI) Lab Routine STD exposure Ordered: 03/07/2025[facility] HealthcareComment on above:Ordered: 03/07/2025 End: 78-75-0605AB Head WO ContrastCT Head WO Contrast Imaging STAT Once for 1 Occurrences starting 04/18/2020 until 04/18/2020[facility] [place]Comment [place]:Once for 1 Occurrences starting 04/18/2020 until 04/18/2020CT Head WO ContrastCT Head WO Contrast Imaging STAT 04/18/2020 11:15 PM [facility], NVCytology Cervical or vaginal smear or scraping studyPap Smear Pathology and Cytology Routine Well woman exam with routine gynecological exam Ordered: [facility] HealthcareComment on above:Ordered: 03/07/2025Hemoglobin A1c/Hemoglobin.total in BloodHemoglobin A1c Lab Routine Missed menses , unspecified gestational age ([facility]) Ordered: 01/12/2025[facility] HealthcareComment on above:Ordered: 01/12/2025Hepatitis B virus surface Ag [Presence] in Serum or Plasma by ImmunoassayHepatitis B surface antigen Lab Routine Missed menses , unspecified gestational age ([facility]) Ordered: 01/12/2025[facility] HealthcareComment on above:Ordered: 01/12/2025Hepatitis C virus Ab [Presence] in Serum or Plasma by ImmunoassayHepatitis C antibody Lab Routine Missed menses , unspecified gestational age ([facility]) Ordered: 01/12/2025[facility] HealthcareComment on above:Ordered: 01/12/2025HIV-1/HIV-2 antigen/antibody combination immunoassayHIV-1 and HIV-2 antibodies Lab Routine Missed menses , unspecified gestational age ([facility]) Ordered: 01/12/2025[facility] HealthcareComment on above:Ordered: 01/12/2025Human papilloma virus DNA [Presence] in Unspecified specimen by Probe with amplificationHPV DNA probe, amplified Microbiology Routine Well woman exam with routine gynecological exam Ordered: 03/07/2025[facility] HealthcareComment on above:Ordered: 03/07/2025Neisseria gonorrhoeae DNA [Presence] in Unspecified specimen by HUMERA with probe detection Neisseria gonorrhea DNA probe, direct Lab Routine STD exposure Ordered: 03/07/2025[facility] HealthcareComment on above:Ordered: 03/07/2025 End: 71-22-3621SegelqhwjLqpgbhgpx Lab STAT One Time for 1 Occurrences starting 04/18/2020 until 04/18/2020[facility] [place] [place]Comment [place] above:One Time for 1 Occurrences starting 04/18/2020 until 04/18/2020ProlactinProlactin Lab STAT 04/18/2020 11:17 PM [facility], KYReagin Ab [Presence] in Serum by RPR RPR Lab Routine Missed menses , unspecified gestational age ([facility]) Ordered: 01/12/2025[facility] HealthcareComment on above:Ordered: 01/12/2025Rubella antibody, IgGRubella antibody, IgG Lab Routine Missed menses , unspecified gestational age ([facility]) Ordered: 01/12/2025[facility] HealthcareComment on above:Ordered: 01/12/2025SURESWAB(R) ADVANCED VAGINITIS PLUS, TMASURESWAB(R) ADVANCED VAGINITIS PLUS, TMA Pathology and Cytology Routine Vaginal discharge Ordered: 03/07/2025[facility] [employer] Work Phone: comment on above:Ordered: 03/07/20259013AB-LBDD-Ssgs [place] Work Phone: [facility] ClinicNEGATED: Highlighted row has been ruled out!Planned Goals not xrjufhxjhxBA-NEGU-Xkam [place] Work Phone: Immunizations Immunization DateImmunizationNotesCare XxjkdytgMothlbld46-92-3851lhnvsjlvj B vaccine, adult dosageKoffi Uriarte MD Work Phone: [facility] Work Phone: [phone]dim toxoid, reduced diphtheria toxoid, and acellular pertussis vaccine, adsorbedKoffi Uriarte MD Work Phone: [facility] Work Phone: [phone]sruxc, injectable, quadrivalent, preservative freeKoffi Uriarte MD Work Phone: [facility]10-05-2023influenza virus vaccine, unspecified formulationNedra Calderon MD Work Phone: [facility] Work Phone: [phone]hlar, injectable, quadrivalent, preservative freeMonique A Uriarte Work Phone: [facility]CTens[facility]Jo[facility] Work Phone: [phone]wfiw, injectable, quadrivalent, preservative freeMonique A Uriarte Work Phone: [facility]CT[facility]Jo[facility] Work Phone: [phone]-DliDOltk COVID-19 Vacc 30 MCG/0.3ML Intramuscular SuspensionMonique A Uriarte Work Phone: [facility]CT[facility]Jo[facility] Work Phone: [phone]k-DcwROxci COVID-19 Vacc 30 MCG/0.3ML Intramuscular SuspensionMonique A Uriarte Work Phone: [facility]CT[facility]Jo[facility] Work Phone: [phone]v, injectable, Madin Bryan Canine Kidney, preservative free, quadrivalentMonique A Uriarte Work Phone: [facility] Work Phone: [phone]jas, injectable, quadrivalent, contains preservativeMonique A Uriarte Work Phone: [facility] Work Phone: [phone] toxoid, reduced diphtheria toxoid, and acellular pertussis vaccine, adsorbedMonique A Uriarte Work Phone: [facility] Work Phone: [phone]iy, injectable, quadrivalent, preservative freeMonique A Uriarte Work Phone: [facility]CT[facility]Jo[facility] Work Phone: [phone]mktxkmpb polysaccharide vaccine, 23 valentMonique A Uriarte Work Phone: [employer] [employer] Work Phone: [phone]iib skin test; purified protein derivative solution, intradermalWashington Health System, [place] 06-50-3236ypwbrjnvxr skin test; purified protein derivative solution, intradermalWashington Health System, FE36-06-9431oeczmsm toxoid, reduced diphtheria toxoid, and acellular pertussis vaccine, adsorbedFisher-Titus [facility] Center08-10-2007meningococcal polysaccharide (groups A, C, Y and W-135) diphtheria toxoid conjugate vaccine (MCV4P)[facility], CZ29-33-6565Jrziptuahygxb, MCV4, unspecified conjugate formulation(groups A, C, Y and W-135)[facility] 11-23-8877dxsslmkuvd, tetanus toxoids and acellular pertussis vaccineFisher-Titus Medical Center08-25-1999diphtheria, tetanus toxoids and acellular pertussis vaccine, unspecified formulationPhelps Health Zeel Work Phone: [employer] [employer] Work Phone: [phone]ipugrutu influenzae type b vaccine, HbOC conjugateFisher-Titus Medical Center08-25-1999measles, mumps and rubella virus vaccineFisher-Titus Medical Center08-25-1999poliovirus vaccine, inactivatedWashington Health System, YE74-90-9239myqzjagjx poliovirus vaccine, live, oralWashington Health [facility], AX89-03-8019axzjqhkerm, tetanus toxoids and acellular pertussis vaccineFisher-Titus Medical Center06-22-1995diphtheria, tetanus toxoids and acellular pertussis vaccine, unspecified formulationPhelps Health Zeel Work Phone: [employer] Work Phone: [phone]qyxlynle influenzae type b vaccine, conjugate unspecified formulationWashington [facility] System, [place] 23-51-4688ihfmrdvbrel influenzae type b vaccine, PRP-OMP conjugateMonminesh Uriarte Work Phone: mp-[facility]SPCHa[employer] Work Phone: [phone], unspecifiedWashington [facility], XA08-63-5423ikujvtb, mumps and rubella virus vaccineFisher-Titus Medical Center04-06-1995poliovirus vaccine, inactivatedMicSheltering Arms Hospital12-01-1994hepatitis B vaccine, pediatric or pediatric/adolescent dosageMonminesh Uriarte Work Phone: cSumma Health Wadsworth - Rittman Medical CenterSimioe89-98-8058qtgrbfecr B vaccine, unspecified formulationWashington [facility], EY66-02-2624 diphtheria, tetanus toxoids and acellular pertussis vaccineTrinity Health, XZ90-89-3271wdqezjklmi, tetanus toxoids and pertussis vaccine [facility]09-29-1994haemophilus influenzae type b vaccine, conjugate unspecified formulationWashington [facility], RK94-58-4281nkecebtqtdx influenzae type b vaccine, HbOC conjugateSara Glasenapp PA-C Work Phone: [facility] HospitalFanwnz03-87-3120ciibcbfxrtx influenzae type b vaccine, PRP-OMP conjugateHedrick Medical Centerminesh Uriarte Work Phone: mp-[employer]CH[employer] Work Phone: [phone], unspecifiedWashington [facility], GK07-72-3815zxawrcwmos vaccine, inactivatedSelect [facility]09-29-1994trivalent poliovirus vaccine, live, oralWashington Health [facility], KI22-07-5197kdfsjypuxo, tetanus toxoids and acellular pertussis vaccineWashington Health [facility], PD19-28-6302 diphtheria, tetanus toxoids and pertussis vaccineFisher-Titus Medical Center07-28-1994haemophilus influenzae type b vaccine, conjugate unspecified formulationWashington [facility], KJ93-82-9250xehucumjkcd influenzae type b vaccine, HbOC conjugateSara Glasenapp PA-C Work Phone: [facility] HospitalGergcv56-16-8288llsusgsgncd influenzae type b vaccine, PRP-OMP conjugateMonique A Uriarte Work Phone: mp-[employer]SPCHa[employer] Work Phone: [phone], unspecifiedWashington [facility], QV57-32-2080jgxxmgyyrz vaccine, inactivatedMicaurora west hospitall [facility]07-28-1994trivalent poliovirus vaccine, live, oralWashington [facility], HV79-19-0250xjexieryw B vaccine, pediatric or pediatric/adolescent dosageMonique A Uriarte Work Phone: cSumma Health Wadsworth - Rittman Medical CenterUqxllj54-00-6355hvetjumin B vaccine, unspecified formulationWashington [facility], KR91-95-5757 diphtheria, tetanus toxoids and acellular pertussis vaccineTrinity Health, VT33-06-8149tmmabosucy, tetanus toxoids and pertussis vaccine [facility]05-19-1994haemophilus influenzae type b vaccine, conjugate unspecified formulationWashington [facility], QK43-50-6963ipgxblttwqu influenzae type b vaccine, HbOC conjugateSara Pattie BARAHONA Work Phone: [facility] HospitalFlsiwq01-32-2658bupjyelmrzs influenzae type b vaccine, PRP-OMP conjugateMonique A Uriarte Work Phone: mp-[facility]CH[facility] Work Phone: [phone]yyaloy B vaccine, pediatric or pediatric/adolescent dosageMonique A Uriarte Work Phone: cSumma Health Wadsworth - Rittman Medical CenterRmzifl93-27-3994pfyytwhka B vaccine, unspecified formulationWashington [facility], CL89-17-6044Sic, unspecifiedWashington [facility], OH95-04-1617wzdiuraqub vaccine, inactivatedMicSheltering Arms Hospital05-19-1994trivalent poliovirus vaccine, live, oralMicDelaware County Memorial [facility], [facility] DatePayer CategoryPayerPoly [id number] Hospital [id number]3[id number] 59-63-1687Mmez-aml46-43-0026Stcregq Care (Private) 1.2.840.719967.1.13.647.2.7.9.713420.873020.47851-88-7345Nkgleoh Health Ckronnsiq0426886879-35-7737Fkjdwxj Health Insurance 1.2.840.701724.1.13.693.2.7.9.186630.899379.54736-31-9619Qromfze47-79-3459 UnknownMMO MMO SUPER[employer] PLUS [id number] 06/03/2020-Present [phone] [address] [place] [address] [id number] 1.2.840.956921.1.13.159.2.7.3.901407.45232-75-3464Uuagkmi499440718773-55-1316 [id number] 2.16.840.1.627103.3.57[id number] 2.16.840.1.476123.3.57[id number] 2.16.840.1.875479.3.57[id number] 2.16.840.1.195084.3.57[id number] 2.840.1.084934.3.57[id number] 2.16840.1.967993.3.57[id number] 2.840.1.947358.3.57[id number] 2.840.1.338048.3.579.[id number] 2.840.1.990839.3.579.[id number] 2.84.1.696055.3.57[id number] 2..1.843634.3.57[id number] 2.0.1.796573.3.57[id number] 2..1.406412.3.57[id number] 2..1.794405.3.57[id number] 2.840.1.420500.3.57[id number] 2.840.1.019186.3.57[id number] 2.840.1.563580.3.57[id number] 2.840.1.146670.3.57[id number] 2.16.84.1.458196.3.579.2.[id number] 1.2.840.610876.1.13.239.2.7.3.170289.254Qh[id number] 2.16.840.1.04[id number] 5o14ps7w-1z3d-93im-02b8-w78z74zskm76 Social History DateTypeDetailFacilityStart: 04-18-2020 End: 92-11-6214Mkqkurx smoking status NHISNever smokerFlower Hospitaltart: 04-18-2020 End: 42-71-5935Okfqbjo use and exposureNever usedAshtabula County Medical Center: 04-18-2020 End: 88-68-7804Zktjbtn intakeCurrent drinker of alcohol (finding)[facility]: 60-34-2694Wzybzwh SDOH Nzvymcrwp3MntitAshtabula County Medical Center: 61-00-4810Icgwbyu SDOH Food Tftvw5IxwfaAshtabula County Medical Center: 78-63-1978Fzgaroz SDOH Transport Omf4WimgdAshtabula County Medical Center: 94-33-1105Plfblor Comment occasionallyAshtabula County Medical Center: 33-09-1236Lly Assigned At BirthNot on [facility]: 04-20-2023 End: 99-05-1350[place]knong to SARS-CoV-2 (event)Not [facility]: 05-03-2024 End: 09-32-5859Xojfy smokerNever ixxbsaHW-AGGX-Ghfb [place] Work Phone: Start: 59-86-9892Yrkgznu smoking statusNeverProMedica Bay Park Hospitaltart: 05-03-2024 End: 01-39-6334Lvs Assigned At [facility] CenterFeACMC Healthcare System Glenbeightart: 85-30-9290Zpk Assigned At [facility] Centertart: 91-17-4652Srgsaiskf beverage intakeEx-drinker (finding)[facility] Work Phone: How often to you have a drink containing alcohol?Never [facility] Work Phone: Start: 04-23-2024 End: 28-43-7647Mbuemoes to SARS-CoV-2 (event)YesUnTriHealth Bethesda Butler HospitalStart: 57-69-0086Outynpg CommentSociallyUnTriHealth Bethesda Butler Hospital Work Phone: Tobacco smoking status NHISTobacco smoking consumption unknownNOMI HealthcareStart: 85-09-5880RrjoycmrnFWWG HealthcareStart: 86-91-2850Gyojfq identityIdentifies as female gender (finding)[facility] Start: 53-20-1544Qekbrz orientationHeterosexual (finding)[facility] HealthcareNEGATED: Highlighted row--GT-VHZE-CxbpHappy Hour Pal Work Phone: NEGATED: Highlighted rowStart: NINFHistory of tobacco usePassive smokerUnTriHealth Bethesda Butler Hospital Work Phone: Goals DatePatient GoalDesired Activity/StatePersonal health goal Functional Status DateAssessmentResultFacilityNEGATED: Highlighted rowFunctional performance Functional status health issues are not documented SzngkkoAT-WCYE-[place] Work Phone: Mental Status DateAssessmentResultFacilityNEGATED: Highlighted rowCognitive function [Interpretation]Cognitive status health issues are not documented Disease DB-ESKG-ZcezAudioTag Work Phone: Clinical Notes 08-09-2017 to 04-30-2025 Note Date & LbagNiooOuoizvbs06-99-6455 History of Present illness Narrative* CHRISTIANA Mills - 04/30/2025 9:50 AM EDT Reason for Appointment: Patient ID: Princess Guerrero [...] [facility]) 07/09/2021 Breech presentation, no version ([facility]) 07/29/2023 Resolved [...] ASSESSMENT & PLAN ICD-10-CM 1. Second trimester ([facility]) Z34.92 2. 24 weeks gestation of ([facility]) Z3A.24 3. Hypertension, unspecified type I10 4. Seizure ([facility]) R56.9 Return OB: Patient presents today for a routine obstetrics appointment. Patient is currently 24w0d . Patient states she is doing well but has complaints of being tired due to current . Patient has verbalizes frequent movement. labor precautions was discussed/given and patient was instructed to perform kick counts three times a day. Pt was given 1-hr glucose order to obtain at [facility]. No orders of the defined types were placed in this encounter. Follow Up: Patient is to return to office in 4 weeks for routine OB appointment. Documented by Kim Sousa MA on behalf of: CHRISTIANA Mills documented in this encounterJohn J. Pershing VA Medical CenterFievtzbvfi52-57-9052 History of Present illness Narrative* Willis Chen DO - 04/04/2025 3:10 PM EDT Reason for Appointment: Patient ID: Princess Guerrero is a 29 y.o. female who presents for Routine Visit Patient presents today for Return OB appointment. Current Medications: has a current medication list which includes the following prescription(s): docusate sodium, labetalol, lamotrigine, mv-min-fe fum-fa-dha, and promethazine. Medical History: Active Ambulatory Problems Diagnosis Date Noted Hypertension 01/14/2023 Seizure (HCC) 07/09/2021 Breech presentation, no version ([facility]) 07/29/2023 Resolved [...] nursing note reviewed. Exam conducted with a actuarial intern present. Vitals: Estimated body mass index is 27.04 kg/m as calculated from the following: Height as of 11/16/22: 5' 9 . Weight as of this encounter: 183 lb 1.9 oz. BP: 110/70 Patient's last menstrual period was 11/13/2024. Assessment/Plan Encounter Diagnosis: ICD-10-CM 1. 20 weeks gestation of ([facility]) Z3A.20 POCT urinalysis dipstick manually resulted 2. Second trimester ([facility]) Z34.92 POCT urinalysis dipstick manually resulted Return [...] of: Willis Chen DO documented in this encounterJohn J. Pershing VA Medical CenterCqxcijmrfu32-77-8619 History of Present illness Narrative* CHRISTIANA Mills - 03/07/2025 3:20 PM EDT Reason for Appointment: Patient ID: Princess Guerrero [...] [facility]) 07/09/2021 Breech presentation, no version ([facility]) 07/29/2023 Resolved [...] HPV DNA probe, amplified 2. Second trimester ([facility]) Z34.92 POCT urinalysis dipstick manually resulted Alpha fetoprotein, maternal Alpha fetoprotein, maternal 3. 16 weeks gestation of ([facility]) Z3A.16 POCT urinalysis dipstick manually resulted Alpha fetoprotein, maternal Alpha fetoprotein, maternal 4. Vaginal discharge N89.8 SURESWAB(R) ADVANCED VAGINITIS PLUS, TMA 5. STD exposure Z20.2 CHLAMYDIA TRACHOMATIS (GENITO/STI) Neisseria gonorrhea DNA probe, direct 6. Screening, , for anatomic survey ([facility]) Z36.89 US OB 14+ weeks anatomy scan Return OB/Annual Exam: Patient presents today for an annual exam/routine obstetrics appointment. Patient is currently 16w2d . Patient is doing well and states she has no complaints. Pap/cultures was obtained without difficulty and patient was given [facility] order to have obtained. Orders Placed This Encounter Procedures HPV DNA probe, amplified US OB 14+ weeks anatomy scan CHLAMYDIA TRACHOMATIS (GENITO/STI) Neisseria gonorrhea DNA probe, direct Alpha fetoprotein, maternal POCT urinalysis dipstick manually resulted Follow Up: Patient is to return to our office in 4 weeks for routine OB appointment Documented by CHRISTIANA Mills on behalf of: CHRISTIANA Mills documented in this encounterJohn J. Pershing VA Medical [id number] History of Present illness Narrative* Cyndi Andrade LPN - 02/07/2025 3:10 PM EDT Reason for Appointment: Patient ID: Princess Guerrero [...] [facility]) 07/09/2021 Breech presentation, no version ([facility]) 07/29/2023 Resolved [...] nursing note reviewed. Exam conducted with a actuarial intern present. Vitals: Estimated body mass index is 26.11 kg/m as calculated from the following: Height as of 11/16/22: 5' 9 . Weight as of this encounter: 176 lb 12.8 oz. BP: 114/74 Patient's last menstrual period was 11/13/2024. ASSESSMENT & PLAN ICD-10-CM 1. First trimester ([facility]) Z34.91 POCT urinalysis dipstick manually resulted 2. 12 weeks gestation of ([facility]) Z3A.12 POCT urinalysis dipstick manually resulted New [...] or undercooked meat, and stay away from [facility]. Patient has been consulted regarding any further do's and don'tsof . Patient voiced understanding and all questions and concerns were answered. Orders Placed This Encounter Procedures POCT urinalysis dipstick manually resulted Follow Up: Patient is to return in 4 weeks for routine OB appointment. Documented by Cyndi Andrade LPN on behalf of: Willis Chen DO documented in this encounterJohn J. Pershing VA Medical [id number] History of Present illness Narrative* CHRISTIANA Mills - 02/01/2025 9:20 AM EDT Reason for Appointment: Patient ID: Princess Guerrero [...] [facility]) 07/09/2021 Breech presentation, no version ([facility]) 07/29/2023 Resolved Ambulatory Problems Diagnosis Date Noted [...] ASSESSMENT & PLAN ICD-10-CM 1. First trimester ([facility]) Z34.91 2. 11 weeks gestation of ([facility]) Z3A.11 Patient is presents for er follow up post vaginal bleeding. Patient states bleeding has stopped, heart tones noted today and seen on US. US in er reviewed subchorionic hematoma. Patient doing better but continues to have constipation, we did send in colace for her and she has taken one time. E ncouraged water and gatorade lite. We will also sent phenergan in for nauesea Documented by CHRISTIANA Mills on behalf of: CHRISTIANA Mills documented in this encounterJohn J. Pershing VA Medical [id number] History of Present illness Narrative* Damaris Agosto MA - 01/12/2025 11:00 AM EDT Reason for Appointment: Patient ID: Princess Guerrero [...] oz F CS-LTranv JACKSON Complications: Breech presentation ([facility]) 1 AB Obstetric Comments Last pap smear date 2 years ago Current Medications: has a current medication list which includes the following prescription(s): labetalol, lamotrigine,and mv-min-fe fum-fa-dha. Medical History: Active Ambulatory Problems Diagnosis Date Noted Hypertension 01/14/2023 Seizure ([facility]) 07/09/2021 Breech presentation, no version ([facility]) 07/29/2023 Resolved Ambulatory Problems Diagnosis Date Noted [...] dipstick manually resulted , unspecified gestational age ([facility]) - Type and screen; Future - ABO/Rh; Future - CBC and differential - Hemoglobin A1c - RPR - Rubella antibody, IgG - Hepatitis B surface antigen - Hepatitis C antibody - HIV-1 and HIV-2 antibodies - Rapid drug screen, urine; Future Encounter for supervision of normal first in first trimester ([facility]) - Rapid drug screen, urine; Future OB Intake: Patient presents today for first OB visit. Patients history has been reviewed in great detail including any potential risks. Patient signed consent forms and patient desires testing in both trimesters. Patient currently has no complaints and has been advised to drink 6-8 glasses of water a day, eatno raw or undercooked meat, and stay away from [facility]. Patient has also been advised to not change litter boxes and eat 6 small meals a day. Patient has been consulted regarding the do's and don'ts ofpregnancy. Patient was given labs and all questions and concerns were answered. Follow Up: Patient is to have labs drawn at directed and return to office for initial OB appointment with provider. Patient may call office as needed with any concerns or questions. Nurse Visit Completed by: Damaris Agosto MA documented in this encounterJohn J. Pershing VA Medical [id number] Evaluation + Plan note* Assessment & Plan Note - Koffi Uriarte MD - 09/12/2024 12:40 PM EST Associated Problem(s): Benign essential hypertension Monitor your [...] Primary Care - PCP - Established; Future [facility] Work Phone: 1(851) 256-438002-25-2025 Evaluation + Plan note* Assessment & Plan Note - Koffi Uriarte MD - 09/12/2024 12:40 PM ESTAssociated Problem(s): Seizure (Multi) Good control. Follow up with neuro. Continue meds [facility] Work Phone: 1([phone]) 229-485402-25-2025 Evaluation + Plan note* Assessment & Plan Note - Koffi Uriarte MD - 09/12/2024 12:40 PM ESTAssociated Problem(s): Vitamin B12 deficiency [facility] Work Phone: [phone]) [phone] Evaluation + Plan note* Assessment & Plan Note - Koffi Uriarte MD - 09/12/2024 12:40 PM ESTAssociated Problem(s): Fatigue We talked about healthy habits and sleep hygiene Orders: CBC; Future TSH with reflex to Free T4 if abnormal; Future Vitamin B12; Future [facility] Work Phone: 1(791) 673-910202-25-2025 History of Present illness Narrative* Koffi Uriarte MD - 09/12/2024 12:40 PM EST Subjective Princess Guerrero is a 28 y.o. female who presents for Follow-up (Follow from it consultant appt for elevated BP). Here for a [...] mg daily or vitamins. documented in [facility] Work Phone: [phone] 257-166902-25-2025 Instructions* Patient Instructions* Koffi Uriarte MD - 09/12/2024 12:40 PM EST Please start back on folic acid 1 mg daily or vitamins. documented in [facility]Upper [facility] Work Phone: 1(266) 725-826102-25-2025 Miscellaneous Notes* Assessment & Plan Note - Koffi Uriarte MD - 09/12/2024 12:40 PM ESTAssociated Problem(s): Benign essential hypertension Monitor your blood [...] Primary Care - PCP - Established; Future * Assessment & Plan Note - Koffi Uriarte MD - 09/12/2024 12:40 PM EST Associated Problem(s): Seizure (Multi) Good control. Follow up with neuro. Continue meds * Assessment & Plan Note - Koffi Uriarte MD - 09/12/2024 12:40 PM EST Associated Problem(s): Vitamin B12 deficiency * Assessment & Plan Note - Koffi Uriarte MD - 09/12/2024 12:40 PM EST Associated Problem(s): Fatigue We talked about healthy habits and sleep hygiene Orders: CBC; Future TSH with reflex to Free T4 if abnormal; Future Vitamin B12; Future documented in this [facility] Work Phone: 1([phone]) 477-508310-16-2024 History of Present illness Narrative* Nedra Calderon MD - 05/03/2024 9:30 AM EDT Images from the original note were not included. Neurological [facility] Referring: No ref. provider found PCP: [...] further seizures. 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 Coordination Right: Liuzwv-sb-tmgp normal.Left: Ufzwjt-tu-wsgs normal. Physical Exam Eyes: Extraocular Movements: Extraocular [...] file for this visit. documented in this [facility] Work Phone: 1(575) 550-401705-30-2024 Note [id number]05-29-2024 NotePatient Education Materials Follows: Hypertension, Adult High blood pressure (hypertension) [...] are some conditions that result in high bloodpressure. What increases the risk? Certain factors may make you more likely to develop high blood pressure. Some of these risk factorsare under your control, including: ? Smoking. ? [...] on the floor. The cuff of the bloodpressure monitor will be placed directly against the [...] of wine (148 mL (more content not included)...[facility] [id number] History of Present illness Narrative* Nedra Calderon MD - 04/30/2023 11:30 AM EDT Subjective Princess Cantu is a 27 y.o. 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 Patient Active Problem List Diagnosis Abnormal weight [...] 5/5 throughout all four extremities. Coordination Right: Mcmfth-cc-yitk normal.Left: Nvvlvb-jt-ngbv normal. Physical Exam Eyes: Extraocular Movements: Extraocular [...] Follow-up in 1 year documented in this [facility] Work Phone: 1([phone]) 715-543405-10-2023 NoteEXAMINATION: US PELVIS TRANSVAG HISTORY: Reproductive care management COMPARISON: No [...] Electronically authenticated by: HAYLIE HOUSER Date: 2022-11-25 17:20ThHol[facility]09[facility]29-[facility]22 NoteHNO ID: [id number] Author: Brendan Blankenship PA-C Service: ? 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 I, Brendan Blankenship, have reviewed this information as documented for accuracy and performed all elements of history taking, and edited the record as necessary. ROS: SEE HPI PE: GENERAL: well-appearing, in no acute distress LUNGS: Normal inspiratory effort ASL INTERPRETER: Normal external genitalia, no vaginal bleeding, small [...] testing/treatment Medical Decision Making Level: 3 - [facility]-2022 Miscellaneous Notes* Telephone Encounter - Mary Onofre RN - 03/24/2022 11:55 AM EDT VM left w req for RCTO * Telephone Encounter - Kavita Sweet DO - 03/24/2022 11:37 AM EDT please call patient back could have been a chemical will have nurse contact once blood work reviewed home test reliable if desiring OV for concerns please schedule other OV, cancel OCT new OB thanks * Telephone Encounter - Vee Garner RN - 03/24/2022 9:30 AM EDT calling today. LMP 02/11/22. Pt took HPT 03/19 d/t period being late. Pt got 3 positive tests. Scheduled New ob visitfor 04/27. Pt states she started having light bleeding that has persisted for the last 4 days. Reports HPT today is negative. Pt asking about the possibility of false positives. Advised will route message to provider. Pended HCG quant. Please advise if pt to keep appt 04/27 or wait to see results of HCG and move appt sooner. documented in this encounterOhio [facility]09-01-2022 Miscellaneous Notes* Telephone Encounter - Mary Onofre RN - 03/19/2022 8:50 AM EDT LMP 02/11, +hpt. Assisted w initial OBV. Advised to take vitamin w folic acid. First trimester precautions provided. handbook sent in . documented in this encounterOhio State Harding Hospital07-19-2022 Miscellaneous Notes* Telephone Encounter - Brendan Souza APRN.CNP - 02/03/2022 2:07 PM EDT The following approved medication requests have been transmitted electronically. Signed Prescriptions Disp Refills metroNIDAZOLE (FLAGYL) 500 mg tablet 14 tablet 0 Sig: Take 1 tablet by mouth twice daily. for vaginosis. Do not drink alcohol while taking this medication MICHELLE: No Brendan Souza APRN.CNP * Telephone Encounter - Mary Onofre RN - 02/03/2022 1:59 PM EDT Pt reporting vag discharge/odor- same symptoms as past +BV dx. Last annual 06/2021. Req for BV medications Pending Prescriptions Disp Refills METRONIDAZOLE 500 MG TABLET 14 tablet 0 Sig: Take 1 tablet by mouth twice daily. for vaginosis. Do not drink alcohol while taking this medication MICHELLE: No documented in this encounterOhio State Harding Hospital02-22-2022 NoteHNO ID: [id number] Author: Brendan Blankenship PA-C Service: ? 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 Portions of this record were documented by the Forest [employer] Management Officer. I, Brendan Blankenship, have reviewed this information as documented for accuracy and performed all elements of history taking, and edited the record as necessary. ROS: SEE HPI PE: GENERAL: well-appearing, in no acute distress LUNGS: Normal inspiratory effort ASL INTERPRETER: Small amount yellow mucus discharge, cervix NL. [...] testing/treatment Medical Decision Making Level: 3 - [facility]12-17-2021 Note HNO ID: [id number] Author: 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 APRN.PASTEURIZER Service: ? Author Type: Nurse Practitioner Type: [...] Ectopic0 Multiple0 Live Births0 Comment: Menarche 10 Respiratory Support Technician History LMP: 06/07/2021 (Exact Date), Having periods Age at Menarche: Age at First : Age at Menopause: Respiratory Support Technician History Comments: Sexual Activity: Yes; Male; [...] external genitalia normal, normal Bartholin's glands, urethra, [place]'s glands, no vulvar lesions, no cervical lesions, [...] type of detergents for washing undergarments, wiping mqjuf-kv-ugij, sleep in loose shorts without underwear, shower immediately after intercourse/exercise, make sure perineum is gently blotted dry before dressing. Avoid scratching, scented pads/tampons/toilet papers, cranberry juice, bubble baths, and intercourse until symptoms are relieved. NO douching. If you shave, use a new razor at least twice monthly. 5) Follow up one year or sooner as needed 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 APRN.CNPChildren'S Hospital For Rehabilitation01-22-2018 History of Past illness Narrative* ProblemNoted DateResolved DateNO SHOW documented as of this encounter (statuses as of 02/03/2022) [facility] History of Past illness Narrative* ProblemNoted Date Resolved DateNO SHOWdocumented as of this encounter (statuses as of 03/19/2022) [facility]01[facility] History of Past illness Narrative* ProblemNoted Date Resolved DateNO SHOWdocumented as of this encounter (statuses as of 03/24/2022) [facility] + Plan note No data available for this section [facility]* Diagnosis Acute vaginitis- Primary Vaginitis and vulvovaginitis, unspecified documented in this encounter [facility] note* Diagnosis Bleeding in early - Primary Unspecified hemorrhage in early , unspecified as to episode of care [facility] Seizure (CMS/HCC)- Primary Other convulsions documented in this encounter [facility] Work Phone: Evaluation noteNo assessment information available [facility] Work Phone: Evaluation note* Diagnosis Seizure (Multi)- Primary Other convulsions documented in this encounter [facility] Work Phone: Evaluation note* Diagnosis Benign essential hypertension- Primary Essential hypertension, benign Seizure (Multi) Other convulsions Vitamin B12 deficiency Other B-complex deficiencies Fatigue, unspecified type Well adult health check Unspecified general medical examination Vitamin D deficiency documented in this encounter [facility] Work Phone: Evaluation note* Diagnosis Missed menses Missed menses , unspecified gestational age ([facility]) Encounter for supervision of normal first in first trimester ([facility]) Nausea and vomiting in ([facility]) Unspecified vomiting of , unspecified as to episode of care Seizure (HCC) Other convulsions Chronic hypertension [facility] Diagnosis Nausea and vomiting, unspecified vomiting type- Primary First trimester ([facility]) state, incidental 11 weeks gestation of ([facility]) documented [facility]* Diagnosis First trimester ([facility]) state, incidental 12 weeks gestation of ([facility]) Missed menses Subchorionic hematoma in second trimester, single or unspecified fetus ([facility]) [facility]* Diagnosis Well woman exam with routine gynecological exam Routine gynecological examination Second trimester ([facility]) state, incidental 16 weeks gestation of ([facility]) Vaginal discharge Leukorrhea, not specified as infective STD exposure Screening, , for anatomic survey ([facility]) Encounter for anatomic survey [facility]* Diagnosis 20 weeks gestation of ([facility]) Second trimester ([facility]) state, incidental [facility]* Diagnosis Second trimester ([facility]) state, incidental 24 weeks gestation of ([facility]) Hypertension, unspecified type Seizure (HCC) Other convulsions Diabetes mellitus screening Screening for diabetes mellitus documented in this encounter [facility]History of Present illness Narrative* The patient states she has been doing well with her blood pressure control since the last visit. She has no comorbid illnesses. She has no significant interval events. * Symptoms: The patient is currently asymptomatic. * Less anxiety lately. Broke up with her boyfriend. * Working in [employer] at the [employer] department. * BP is much improved on lisinopril. * Saw gyne for discharge. * was told she had BV and chlamydia. * took antibiotics, got better for a few weeks and now she is having discharge again and odor. no pelvic pain. [employer] Work Phone: History of Present illness Narrative* The patient states she has been doing well with her blood pressure control since the last visit. She has no comorbid illnesses. She has no significant interval events. * Symptoms: The patient is currently asymptomatic. * Less anxiety lately. Broke up with her boyfriend. * Working in [employer] at the [employer]. * BP is much improved on lisinopril. * Saw gyne for discharge. * was told she had BV and chlamydia. * took antibiotics, got better for a few weeks and now she is having discharge again and odor. no pelvic pain. [employer] Work Phone: Hospital Discharge instructions No data available for this section [facility] No data available for this section [facility] Summary Purpose Family History Mother Name Dates [...] Recorded Date/T masha father Hypertension Unknown Not SpecifiedMalignant neoplasmUnknown Advance Directives TypeDate RecordedPatient RepresentativeExplanationACP-Advance DirectiveACP-Power of AttorneyTypeDate RecordedPatient RepresentativeExplanationACP-Advance DirectiveACP-Power of AttorneyTypeDate RecordedPatient RepresentativeExplanation Advance Directive(s)11/30/2015 2:19 PM Advance Directive Response Recorded Date/ Time Advance Directives No November 08, 2 024 3:18pm Reason for Referral StatusReasonSpecialtyDiagnoses / ProceduresReferred By ContactReferred To ContactOpenRadiology Diagnoses Nonintractable generalized idiopathic epilepsy without status epilepticus (HCC) Procedures MRI BRAIN W WO CONTRAST Spike Garcia MD [address] [place] [address] Assessments Diagnosis Nonintractable generalized idiopathic epilepsy without status epilepticus (HCC) Diagnosis Seizure (HCC) Other convulsions Discharge Instructions * Attachments The following attachments cannot be sent through Care Everywhere. * Seizure ([place]) documented in this encounter Chief Complaint and Reason for Visit Chief Complaint Nausea, diarrhea Additional Source Comments INFORMATION SOURCE (unrecogn ized section and content) DATE CREATED AUTHOR 01/11/2018 [facility] DATE CREATED AUTHOR AUTHOR'S ORGANIZ ATION 04/19/2020 [facility] DATE CREATED AUTHOR AUTHOR'S ORGANIZ ATION 05/11/2020 [facility] DATE CREATED AUTHOR AUTHOR'S ORGANIZ ATION 12/29/2020 [facility] DATE CREATED AUTHOR AUTHOR'S ORGANIZ ATION 04/20/2022 [facility] DATE CREATED AUTHOR AUTHOR'S ORGANIZ ATION 08/11/2022 [employer] DATE CREATED AUTHOR AUTHOR'S ORGANIZ ATION 11/29/2022 [facility] DATE CREATED AUTHOR AUTHOR'S ORGANIZ ATION 12/27/2022 [facility] DATE CREATED AUTHOR AUTHOR'S ORGANIZ ATION 09/07/2023 [facility] DATE CREATED AUTHOR AUTHOR'S ORGANIZ ATION 12/16/2023 [facility] DATE CREATED AUTHOR AUTHOR'S ORGANIZ ATION 04/01/2024 [facility] DATE CREATED AUTHOR AUTHOR'S ORGANIZ ATION 04/02/2024 [facility] DATE CREATED AUTHOR AUTHOR'S ORGANIZ ATION 07/14/2024 [facility] DATE CREATED AUTHOR AUTHOR'S ORGANIZ ATION 09/15/2024 [facility] DATE CREATED AUTHOR AUTHOR'S ORGANIZ ATION 04/22/2025 [facility] DATE CREATED AUTHOR AUTHOR'S ORGANIZ ATION 05/01/2025 [facility] EPIC Reason for Visit (unrecogniz ed section and content) StatusReasonSpecialtyDiagnoses / ProceduresReferred By ContactReferred To ContactClosedEEG Diagnoses Generalized idiopathic epilepsy and epileptic syndromes, not intractable, without status epilepticus Procedures HC EEG 16+ CHANNEL TELEMTERY 24HR Spike Garcia MD [address] [place] [address] [address] [place] [address] StatusReasonSpecialtyDiagnoses / ProceduresReferred By ContactReferred To ContactClosedRadiology Diagnoses Generalized idiopathic epilepsy and epileptic syndromes, not intractable, without status epilepticus Procedures HC MRI-BRAIN WO & W CONTRAST Spike Garcia MD [address] [facility] [address] [place] [address] [address] [place] [address] ReasonCommentsSeizuresSeizure like activityReasonCommentsAppointmentReason CommentsBleeding With PregnancyReasonCommentsSeizuresMedication udatesReason CommentsSeizuresReasonCommentsFollow-upFollow from it consultant appt for elevated BP ReasonCommentsAmenorrheaReasonCommentsRoutine VisitReasonComments Routine VisitWell Women VisitSTI Screening Source Comments (unrecognize d section and content) In the event this informatio n is protected by the Federal Confidentiality of Alcohol and Drug Abuse Patient Records regulations: The Federal rules restrict any use of the information to criminally investigate or prosecute any alcohol or drug abuse patient.[facility] HospitalIn the event this information is protected by the Federal Confidentiality of Alcohol and Drug Abuse Patient Records regulations: The Federal rules restrict any use of the information to criminally investigate or prosecute any alcohol or drug abuse patient.[facility] HospitalIn the event this information is protected by the Federal Confidentiality of Alcohol and Drug Abuse Patient Records regulations: The Federal rules restrict any use of the information to criminally investigate or prosecute any alcohol or drug abuse patient.[facility] Care Teams (unrecognized sec tion and content) Team MemberRelationshipSpecialtyStart DateEnd Date Koffi Uriarte MD PCP - GeneralFamily Practice08/17/16Team MemberRelationshipSpecialtyStart DateEnd Date Koffi Uriarte MD PCP - GeneralFamily Practice08/17/16Team MemberRelationshipSpecialtyStart [place] [address] [place] [place] [address] PCP - General08/14/20 [place] [address] [place] [address] PCP - MMO ACO PCP02/16/23 Team Status: Active Member Role Status Dates Norma Houser APRN Primary Care Provider Active Team Status: Inactive Member Role Status Dates Yusra Whitehead APRN Attending Provider Active Start: November 09, 2023 End: November 09, 2023[facility] Care ProviderActiveStart: November 09, 2023 End: Maria D 23rd, 2024Team MemberRelationshipSpecialtyStart [place] [address] [facility] [place] [address] PCP - General08/14/20Team MemberRelationshipSpecialtyStart [place] [address] [place] [address] PCP - General08/14/20Team MemberRelationshipSpecialtyStart [place] [address] [place] [address] PCP - GeneralFamily Medicine01/14/23Team MemberRelationshipSpecialtyStart [place] [address] [place] [address] PCP - GeneralFamily Medicine01/14/23Team MemberRelationshipSpecialtyStart [place] [address] [place] [address] PCP - GeneralFamily Medicine01/14/23Team MemberRelationshipSpecialtyStart [place] [address] [place] [address] PCP - GeneralFamily Medicine01/14/23Team MemberRelationshipSpecialtyStart [place] [address] [place] [address] PCP - GeneralFamily Medicine01/14/23Team MemberRelationshipSpecialtyStart [place] [address] [place] [address] PCP - [facility]01/14/23Te MemberRelationshipSpecialtyStart [place] [address] [place] [address] PCP - [facility]01/14/23Te MemberRelationshipSpecialtyStart [place] [address] [place] [address] PCP - [facility]01/14/23Te MemberRelationshipSpecialtyStart [place] [address] [place] [address] PCP - [facility]01/14/23Te MemberRelationshipSpecialtyStart [place] [address] [place] [address] PCP - [facility]01/14/23Te MemberRelationshipSpecialtyStart [place] [address] [place] [address] PCP - [facility]01/14/23 Goals (unrecognized section and content) Goals may [...] BE BASED ON THE PRIMARY CLINICAL RECORDS. [facility] [employer] [facility]. provides no warranty or guarantee of the accuracy or completeness of information in this document.
--- OUTSIDE RECORDS SUMMARY | 2025-05-19 11:26 | XMS_ITS | Encounter Summary ---
Author Organization [facility] Address [address] [facility] [place] [address] Care Team Providers Care Billing And Insurance Coordinator Name Role Phone Suzanne Uriarte MD Primary Care Provider +1- [phone] Encounter Details DateTypeDepartmentCare Team (Latest Contact Info)Mbgfkxhtuoj46/08/2024Clinisync Result Encounter [facility] External Department Unsolicited Lisa Chen, [address], [place] [address] Social History Tobacco UseTypesPacks/DayYears UsedDateSmoking Tobacco: Never Assessed CommentsYesSex and Gender InformationValueDate RecordedSex Assigned at Tsuxdk5612/21/2022 8:22 PM EDTLegal WdyVadcjr77/15/2023 11:40 PM EDTGender PqyrmuyjSygjng08/05/2023 8:22 PM EDTSexual XiyfeikaidsXocsfddr49/05/2023 8:22 PM EDTdocumented as of this encounter Plan of Treatment DateTypeDepartmentCare Team (Latest Contact Info)Tmxziqacciu37/11/2025 11:40 AM ESTRoutine [facility] [place] [facility] [address] [place] [address] Lisa Chen DO [address] [place] [address] documented as of this encounter Goals GoalPatient Goal TypeAssociated ProblemsRecent ProgressPatient-Stated?Author Reminders Care PlanOB RemindersNoOpen Scheduling, Backgrounddocumented as of this encounter Procedures Procedure NamePriorityDate/TimeAssociated DiagnosisCommentsUS OB BPP W NON-WSVIBR7007/26/2023 7:09 AM EST documented in this encounter Results * US OB BPP W NON-STRESS (07/26/2023 7:09 AM EST)Anatomical Region LateralityModalityOtherSpecimen (Source)Anatomical Location / Laterality Collection Method / VolumeCollection TimeReceived Time07/26/2023 7:09 AM EST Narrative 07/26/2023 7:12 AM EST [facility] ?[address] ? [place], [facility] ? Ultrasound Report ? Signed ? Patient: CANTU,PRINCESS A ?MR#: [id number] ?? : 1995 ?Acct:[id number] ?? Age/Sex: 27 / F ?ADM Date: 07/24/23 ?? Loc: US ? Attending Dr: Lisa Chen D.O. ? Ordering Physician: Lisa Chen D.O. ?? Date of Service: 07/24/23 ?? Procedure(s): US OB BPP w non-stress ?? Accession Number(s): [id number] ? cc: Lisa Chen D.O.; Physician,Non-Staff M.D. ? [facility] ? [facility]. [facility] ? [place] [address] ? Patient Name: ?? PRINCESS A CANTU ? MRN: [facility]:[id number] ? date: 1995 ?Sex: F ?? Assigned Patient Location: FBC ?? Current Patient Location: ? Accession/Order Number: [id number] ?? Exam Date: 07/24/2023 ??08:19 ?Report Date: 07/26/2023 ??07:09 ? At the request of: ?? LISA ??APRIL ? Procedure: ??US OB BPP w non-stress ? EXAMINATION: US OB BPP w non-stress ? HISTORY: Chronic hypertension ? COMPARISON: No relevant comparison available. ? TECHNIQUE: Ultrasound biophysical profile was performed in the radiology ?? department. non-reactive stress testing was performed by nursing staff ?? in ?? the birthing center. ? FINDINGS: ?? BREATHING MOVEMENTS: 2.0 ?? GROSS BODY MOVEMENTS: 2.0 ?? TONE: 2.0 ?? QUALITATIVE AMNIOTIC FLUID VOLUME: 2.0 ? PRESENTATION: BREECH ?? HEART RATE: 133.0 bpm H.B./min ?? AMNIOTIC FLUID VOLUME: 12.7 cm cm ?? GESTATIONAL AGE: 35 weeks 5 days ? CONCLUSION: ? Total biophysical profile score: 8.0 ? Electronically authenticated by: HAYLIE ??PERICO ?? Date: 07/26/2023 ??07:09 ? Dictated By: ?Haylie River M.D. ? Signed By: ?07/26/23711 ? DD/ 0709 ? TD/TT: ? Information Services Vice President: Procedure Note Radiology, Radiologist, - 09/22/2023 [place] [address] Ultrasound Report Signed Patient: PRINCESS CANTU AMR#: [id number] : 1995Acct:[id number] Age/Sex: 27 / FADM Date: 07/24/23 Loc: US Attending Dr: Lisa Chen D.O. Ordering Physician: Lisa Chen D.O. Date of Service: 07/24/23 Procedure(s): US OB BPP w non-stress Accession Number(s): [id number] cc: Lisa Chen D.O.; Physician,Non-Staff M.DLima The [address] [address] Patient Name: PRINCESS CANTU MRN: [id number] date: 1995 Sex: F Assigned Patient Location: [facility] Current Patient Location: Accession/Order Number: [id number] Exam Date: 07/24/2023 08:19 Report Date: 07/26/2023 [...] River M.D. Signed By:07/26/23711 DD/ 8 TD/TT: Information Services Vice President: Authorizing ProviderResult TypeResult StatusCorey April DOCLINISYNC IMAGINGFinal Result documented in this encounter Visit Diagnoses Not on filedocumented in this encounter Additional Health Concerns Active ProblemsNoted DateDiagnosed DateOB Uzzrioedh63/29/2023 documented as of this encounter Care Teams Team MemberRelationshipSpecialtyStart [place] [address] [place] [address] PCP - GeneralFamily Medicine01/14/23documented as of this encounter
--- OUTSIDE RECORDS SUMMARY | 2025-05-19 11:26 | XMS_ITS | Encounter Summary ---
Author Organization [facility] Address [address] [facility] [place] [address] Care Team Providers Care Button Breaker Operator Name Role Phone Suzanne Uriarte MD Primary Care Provider +1- [phone] Encounter Details DateTypeDepartmentCare Team (Latest Contact Info)Mxpharezwdl16/24/2023linisync Result Encounter [facility] External Department Unsolicited Lisa Chen DO [address] [place] [address] Social History Tobacco UseTypesPacks/DayYears UsedDateSmoking Tobacco: Never Assessed CommentsYesSex and Gender InformationValueDate RecordedSex Assigned at Fmyysh8012/21/2022 8:22 PM EDTLegal DmiUgljze76/15/2023 11:40 PM EDTGender XjoxbocuRpkeuc60/05/2023 8:22 PM EDTSexual LrscbquzcwiNxfcytpz48/05/2023 8:22 PM EDTCOVID-19 ExposureResponseDate RecordedIn the last 10 days, have you been in contact with someone who was confirmed or suspected to have Co ronavirus/COVID-19?No / Zweznx9506/24/2023 5:49 AM ESTdocumented as of this encounter Plan of Treatment DateTypeDepartmentCare Team (Latest Contact Info)Ciogoemzrvb11/11/2025 11:40 AM ESTRoutine [facility] [place] [facility] [address] [place] [address] Lisa Chen DO [address] [place] [address] documented as of this encounter Goals GoalPatient Goal TypeAssociated ProblemsRecent ProgressPatient-Stated?Author Reminders Care PlanOB RemindersNoOpen Scheduling, Backgrounddocumented as of this encounter Procedures Procedure NamePriorityDate/TimeAssociated DiagnosisCommentsUS OB BPP W NON-FSWOIX9507/11/2023 12:18 AM EST documented in this encounter Results * US OB BPP W NON-STRESS (07/11/2023 12:18 AM EST)Anatomical Region LateralityModalityOtherSpecimen (Source)Anatomical Location / Laterality Collection Method / VolumeCollection TimeReceived Time07/11/2023 12:18 AM EST Narrative 07/11/2023 12:20 AM EST [facility] ?[address] ? [place] [address] ? Ultrasound Report ? Signed ? Patient: CANTU,PRINCESS A ?MR#: [id number] ?? : 1995 ?Acct:[id number] ?? Age/Sex: 27 / F ?ADM Date: 07/10/23 ?? Loc: FBCO ? Attending Dr: Lisa Chen D.O. ? Ordering Physician: Lisa Chen D.O. ?? Date of Service: 07/10/23 ?? Procedure(s): US OB BPP w non-stress ?? Accession Number(s): [id number] ? cc: Lisa Chen D.O.; Physician,Non-Staff M.D. ? [facility] ? [address] ? [place] [address] ? Patient Name: ?? PRINCESS A CANTU ? MRN: [id number]:[id number] ? date: 1995 ?Sex: F ?? Assigned Patient Location: FBC ?? Current Patient Location: ? Accession/Order Number: [id number] ?? Exam Date: 07/10/2023 ??14:31 ?Report Date: 07/11/2023 ??00:18 ? At the request of: ?? LISA ??APRIL ? Procedure: ??US OB BPP w non-stress ? EXAMINATION: US OB BPP w non-stress ? HISTORY: LGA ? COMPARISON: Ultrasound OB growth 06/17/2023 ? TECHNIQUE: Ultrasound biophysical profile was performed in the radiology ?? department. ? BREATHING MOVEMENTS: 2.0 ?? GROSS BODY MOVEMENTS: 2.0 ?? TONE: 2.0 ?? QUALITATIVE AMNIOTIC FLUID VOLUME: 2.0 ? PRESENTATION: BREECH ?? HEART RATE: 145.1 bpm bpm. ?? AMNIOTIC FLUID VOLUME: 15.1 cm ?? GESTATIONAL AGE: 33 weeks 5 days ? CONCLUSION: ? Total biophysical profile score 8.0. ? Electronically authenticated by: CARLO ??BARON ?? Date: 07/11/2023 ??00:18 ? Dictated By: ?Carlo Maier M.D. ? Signed By: ?07/11/230 ? DD/ 0018 ? TD/TT: ? Decorator Mannequin: Procedure Note Radiology, Radiologist, MD - 07/11/2023 [place] [address] Ultrasound Report Signed Patient: PRINCESS CANTU AMR#: [id number] : 1995Acct:[id number] Age/Sex: 27 / FADM Date: 07/10/23 Loc: FBWA Attending Dr: Lisa Chen D.O. Ordering Physician: Lisa Chen D.O. Date of Service: 07/10/23 Procedure(s): US OB BPP w non-stress Accession Number(s): [id number] cc: Lisa Chen D.O.; Physician,Non-Staff M.DLima The [place] [id number] Patient Name: PRINCESS CANTU MRN: [facility]:[id number] date: 1995 Sex: F Assigned Patient Location: [facility] Current Patient Location: Accession/Order Number: [id number] Exam Date: 07/10/2023 14:31 Report Date: 07/11/2023 [...] M.D. Signed By:07/11/23 0020 DD/ 0018 TD/TT: Decorator Mannequin: Authorizing ProviderResult TypeResult StatusCorey April DOCLINISYNC IMAGINGFinal Result documented in this encounter Visit Diagnoses Not on filedocumented in this encounter Additional Health Concerns Active ProblemsNoted DateDiagnosed DateOB Okjgonvad14/29/2023 documented as of this encounter Care Teams Team MemberRelationshipSpecialtyStart [place] [address] [address] [address] PCP - GeneralFamily Medicine01/14/23documented as of this encounter
--- OUTSIDE RECORDS SUMMARY | 2025-05-19 11:26 | XMS_ITS | Encounter Summary ---
Author Organization [facility] Address [address] [facility] [place] [address] Care Team Providers Care Senior Financial Analyst Name Role Phone Suzanne Uriarte MD Primary Care Provider +1- [phone] Encounter Details DateTypeDepartmentCare Team (Latest Contact Info)Syqczeqoivv07/24/2023linisync Result Encounter [facility] External Department Unsolicited Lisa Chen DO [address] [place] [address] Social History Tobacco UseTypesPacks/DayYears UsedDateSmoking Tobacco: Never Assessed CommentsYesSex and Gender InformationValueDate RecordedSex Assigned at Gjzgia9512/21/2022 8:22 PM EDTLegal QiyIfrtnm76/15/2023 11:40 PM EDTGender TbrhbxvxHfwepv87/05/2023 8:22 PM EDTSexual RueajobbqdxXnokrcem14/05/2023 8:22 PM EDTCOVID-19 ExposureResponseDate RecordedIn the last 10 days, have you been in contact with someone who was confirmed or suspected to have Co ronavirus/COVID-19?No / Vknvur6106/24/2023 5:49 AM ESTdocumented as of this encounter Plan of Treatment DateTypeDepartmentCare Team (Latest Contact Info)Acjcxkrzczy98/11/2025 11:40 AM ESTRoutine [facility] [address] [place] [address] Lisa Chen DO [address] [place] [address] documented as of this encounter Goals GoalPatient Goal TypeAssociated ProblemsRecent ProgressPatient-Stated?Author Reminders Care PlanOB RemindersNoOpen Scheduling, Backgrounddocumented as of this encounter Procedures Procedure NamePriorityDate/TimeAssociated DiagnosisCommentsUS OB GROWTH 07/11/2023 12:47 AM EST documented in this encounter Results * US OB GROWTH (07/11/2023 12:47 AM EST)Anatomical RegionLateralityModalityOther Specimen (Source)Anatomical Location / LateralityCollection Method / Volume Collection TimeReceived Time07/11/2023 12:47 AM EST Narrative 07/11/2023 12:50 AM EST [facility] ?[address] ? [place] [address] ? Ultrasound Report ? Signed ? Patient: CANTU,PRINCESS A ?MR#: [id number] ?? : 1995 ?Acct:[id number] ?? Age/Sex: 27 / F ?ADM Date: 07/10/23 ?? Loc: FBCO ? Attending Dr: Lisa Chen D.O. ? Ordering Physician: Lisa Chen D.O. ?? Date of Service: 07/10/23 ?? Procedure(s): US OB growth ?? Accession Number(s): [id number] ? cc: Lisa Chen D.O.; Physician,Non-Staff M.D. ? [facility] ? [address] ? [place] [address] ? Patient Name: ?? PRINCESS A CANUT ? MRN: [facility]:[id number] ? date: 1995 ?Sex: F ?? Assigned Patient Location: FBC ?? Current Patient Location: FBCO ?? Accession/Order Number: [id number] ?? Exam Date: 07/10/2023 ??14:31 ?Report Date: 07/11/2023 ??00:47 ? At the request of: ?? LISA ??ELSIE ? Procedure: ??US OB growth ? EXAMINATION: US OB growth ? HISTORY: chronic hypertension ? COMPARISON: Ultrasound OB growth 06/17/2023 ? FINDINGS: ? Heart Rate: 145.1 bpm ?? Number: 1.0 ?? Position: BREECH ?? Amniotic Fluid Volume: 15.1 cm ?? Maximum Vertical Pocket: 7.0 cm ? BIOMETRY: ?? BPD: 8.2 cm cm; 32 weeks 6 days; 24% ?? HC: 30.6 cmcm; 34 weeks 1 days ; 24% ?? AC: 29.2 cm cm; 33 weeks 1 days; 36% ?? FL: 6.3 cm cm; 32 weeks 3 days; 12% ?? EFW: 2100.4 grams; 23% ?? FL/AC: 21.5 ?? FL/BPD: 76.4 ?? HC/AC: 1.1 ? GESTATIONAL AGE: ?? Age by EDC: 33 weeks 5 days ?? RAS by EDC: 08/23/2023 ?? Age by US: 33 weeks 1 day ?? RAS by US: 08/27/2023 ? US/US OB growth ?? IMPRESSION: ? 1. Single live intrauterine with growth detailed above. ? Electronically authenticated by: CARLO ??BARON ?? Date: 07/11/2023 ??00:47 ? Dictated By: ?Carlo Maier M.D. ? Signed By: ?12/24/23 0050 ? DD/ 0047 ? TD/TT: ? Sales Order Clerk: Procedure Note Radiology, Radiologist, MD - 09/22/2023 [place] [address] Ultrasound Report Signed Patient: PRINCESS CANTU AMR#: [id number] : 1995Acct:[id number] Age/Sex: 27 / FADM Date: 07/10/23 Loc: FBCO Attending Dr: Lisa Chen D.O. Ordering Physician: Lisa Chen D.O. Date of Service: 07/10/23 Procedure(s): OB growth Accession Number(s): [id number] cc: Lisa Chen D.O.; Physician,Non-Staff MCheryl The [address] [address] Patient Name: PRINCESS CANTU MRN: [id number] date: 1995 Sex: F Assigned Patient Location: FBC Current Patient Location: FBCO Accession/Order Number: [id number] Exam Date: 07/10/2023 14:31 Report Date: 07/11/2023 [...] Carlo Maier M.D. Signed By:07/11/2349 DD/ TD/TT: Sales Order Clerk: Authorizing ProviderResult TypeResult StatusCorechristina Chen DOCLINISYNC IMAGINGFinal Result documented in this encounter Visit Diagnoses Not on filedocumented in this encounter Additional Health Concerns Active ProblemsNoted DateDiagnosed DateOB Csfrthgwi33/29/2023 documented as of this encounter Care Teams Team MemberRelationshipSpecialtyStart [place] [address] [address] [place] [address] PCP - GeneralFamily Medicine01/14/23documented as of this encounter
--- OUTSIDE RECORDS SUMMARY | 2025-05-19 11:26 | XMS_ITS | Clinical Summary ---
Author Organization [facility] Healthcare Address [address] [place] [address] Care Team Providers Care Commanding Officer Motorized Squad Name Role Phone Koffi Winters MD Primary Care Provider [phone] Allergies No known active allergies Medications MedicationSigDispense QuantityRefillsLast FilledStart DateEnd DateStatus lamoTRIgine (LaMICtal) 100 MG tablet Take 100 mg by mouth in the morning and 100 mg in the evening.Active MV-Min-Fe Fum-FA-DHA ( 1 PO) Take by mouthActive docusate sodium (Colace) 50 MG capsule Take 50 mg by mouth in the morning and 50 mg before bedtime.Active promethazine (Phenergan) 12.5 MG tablet Indications:Nausea and vomiting, unspecified vomiting typeTake 2 tablets (25 mg) by mouth every 6 (six) hours if needed for nausea or vomiting for up to 30 doses Take 1 tablet by mouth every 6 hours as needed for nausea. 30 tablet 5Active labetalol (Normodyne) 200 MG tablet Indications:Secondary hypertensionTake 1 tablet (200 mg) by mouth in the morning and 1 tablet (200 mg) before bedtime. 60 tablet 3105Active Active Problems ProblemNoted DateDiagnosed DateBreech presentation, no version ([facility]) 07/29/20235957Vztqldgzbcjn05/29/0489Gdygtai23/22/2021Estimated Date of DwdkdvwwQkcjwtlaGuu76/02/2026ased on last menstrual period of 11/13/2024 Encounters DateTypeDepartmentCare MrftUkuawytlbax03/13/2025 9:50 AM EDTRoutine [facility] [address] [address] Roula Grullon PA Second trimester ([facility]); 24 weeks gestation of ([facility]); Hypertension, unspecified type; Seizure ([facility]); Diabetes mellitus yuzpzjpti13/13/2025amboo flowsheet [facility] [address] [place] [address] Roula Grullon PA 04/29/20251309Pbcfyu42/01/2025Refill [facility] [address] [place] [address] Lisa Chen, DO Secondary /20/2025linisync Result Encounter NOMS External Department Unsolicited Roula Grullon PA 04/04/2025 3:10 PM EDTRoutine [facility] [address] [place] [address] Lisa Chen, 20 weeks gestation of ([facility]); Second trimester ([facility])5Clinisync Result Encounter NOMS External Department Unsolicited Lisa Chen, 04/04/2025linisync Result Encounter NOMS External Department Unsolicited Lisa Chen, 03/28/20251986Lpcbnk36/05/2025Orders Only [facility] [address] [place] [address] Damaris Agosto MA 03/16/2025bstract [facility] [address] [place] [address] Lisa Chen, 03/14/2025 3:00 PM EDTAncillary Procedure [facility] [address] [place] [address] Amniotic band in second trimester, single or unspecified fetus ([facility]) 03/13/20250296Xdauju12/20/2025 3:20 PM EDTRoutine [facility] [address] [place] [address] Roula Grullon PA Well woman exam with routine gynecological exam; Second trimester ([facility]); 16 weeks gestation of ([facility]); Vaginal discharge; STD exposure; Screening, , for anatomic survey ([facility])03/07/2025linisync Result Encounter NOMS External Department Unsolicited Roula Grullon PA 03/07/2025External Result Encounter NOMS External Department Unsolicited Roula Grullon PA 03/07/2025amboo flowsheet [facility] [address] [place] [address] Roula Grullon PA 03/07/20256086Tmcvzw43/12/2025Results [place] [address] Apple Gallagher LPN US OB less than 14 weeks early02/27/2025Telephone [facility] [address] [place] [address] Apple Gallagher LPN 02/21/2025 3:00 PM EDTAncillary Procedure [facility] [address] [place] [address] Missed menses; Subchorionic hematoma in second trimester, single or unspecified fetus ([facility]) 02/19/2025Telephone [facility] [address] [place] [address] Damaris Agosto MA from Last 3 Months Social History Tobacco UseTypesPacks/DayYears UsedDateSmoking Tobacco: Never Assessed Estimated Date of EstbylbbXyziffgcYft11/02/2026Based on last menstrual period of 11/13/2024Sex and Gender InformationValueDate RecordedSex Assigned at BirthFemale 12/21/2022 8:22 PM EDTLegal KdmZilrdu48/15/2023 11:40 PM EDTGender Identity Htcjym9012/21/2022 8:22 PM EDTSexual ArcrzntgxuqGmkyuihk26/05/2023 8:22 PM EDT Last Filed Vital Signs Vital SignReadingTime TakenCommentsBlood Yisnoezo486/7204/30/2025 10:07 AM EDT Pulse--Temperature--Respiratory Rate--Oxygen Saturation--Inhaled Oxygen Concentration--Mtfmim54 kg (183 lb)04/30/2025 10:07 AM AVNLiqzel462.3 cm (5' 9 ) 11/16/2022 12:00 PM EDTBody Mass Index27.02011/16/2022 12:00 PM EDT Plan of Treatment DateTypeDepartmentCare Team (Latest Contact Info)Imrykxdfwja12/11/2025 11:40 AM ESTRoutine [facility] [address] [place] [address] Lisa Chen, [address] [place] [address] Health MaintenanceDue DateLast DoneCommentsMMR Vaccines (1 of 1 - Standard series)1994DTaP/Tdap/Td Vaccines (1 - Tdap)2000Varicella Vaccines (1 of 2 - 13+ 2-dose series)2006Hepatitis B Vaccines (1 of 3 - 19+ 3-dose series)2012HPV Vaccines (1 - 3-dose SCDM series)2020HPV/Cotest 4COVID-19 Vaccine (3 - 2024- season)507/, 01/08/2021 Influenza Vaccine (#1)510/11/2022, 04/21/2022, 04/18/2021, Additional history existsCervical Cancer Qnkmdwyvk46/20/2028Pap Smear8003/07/2025, 03/09/2023HIB VaccinesAged OutNo longer eligible based on patient's age to complete this topicHepatitis A VaccinesAged OutNo longer eligible based on patient's age to complete this topicIPV VaccinesAged OutNo longer eligible based on patient's age to complete this topicMeningococcal B VaccineAged OutNo longer eligible based on patient's age to complete this topicMeningococcal VaccineAged OutNo longer eligible based on patient's age to complete this topicPneumococcal Vaccine: Pediatrics (0 to 5 Years) and At-Risk Patients (6 to 64 Years)Aged Out No longer eligible based on patient's age to complete this topicRotavirus VaccinesAged OutNo longer eligible based on patient's age to complete this topic Goals GoalPatient Goal TypeAssociated ProblemsRecent ProgressPatient-Stated?Author Reminders Care PlanOB RemindersNoOpen Scheduling, Background Procedures Procedure NamePriorityDate/TimeAssociated DiagnosisCommentsPOCT URINALYSIS UYSNLWLSJxkpisi04/13/2025 10:14 AM EDT Second trimester ([facility]) AFP, SERUM, OPEN SPINA OCWXZWRjzuols94/20/2025 10:31 AM EDT POCT URINALYSIS MRYMKQRCRlmrmcq57/17/2025 3:20 PM EDT 20 weeks gestation of ([facility]) Second trimester ([facility]) US OB HEIDXUI2204/04/2025 9:12 AM EDT US OB CERVICAL FRLCRJ7604/04/2025 9:12 AM EDT US OB LIMITED 1+ FVVUDGBTzgynms16/27/2025 3:22 PM EDT Amniotic band in second trimester, single or unspecified fetus ([facility]) RECURRENT VAGINITIS (HTRX)Bfzoixz2903/07/2025 4:35 PM EDT POCT URINALYSIS KAZMZKTHTiekcca38/20/2025 3:49 PM EDT Second trimester ([facility]) 16 weeks gestation of ([facility]) IGP,APTIMA HPV,AGE EDSPPxrdeps67/20/2025 3:24 PM EDT PAP PSQRNLongnxo04/20/2025 12:00 AM EDTUS OB < 14 WEEKS FLZTTKnlhfnp70/06/2025 3:26 PM EDT Missed menses Subchorionic hematoma in second trimester, single or unspecified fetus ([facility]) from Last 3 Months Results * (ABNORMAL) POCT urinalysis dipstick manually resulted (04/30/2025 10:14 AM EDT) Only the most recent of3 resultswithin the time period is included. ComponentValueRef RangeTest MethodAnalysis TimePerformed AtPathologist Signature Color, UAYellowClarity, UAClearGlucose, UANegativeNegative - 2000(110) ++++ mg/dLBilirubin, UANegativeNegative - 4(70) +++ mg/dLKetones, UANegativeNegative - 160(16) ++++ mg/dLSpec Grav, UA1.0201 - 1.03Blood, UANegativeNegative - 50 Jae/mcLpH, UA6.05 - 9Protein, UANegativeNegative - 2000(20) ++++ mg/dL Urobilinogen, UA1.00.2 - 12 mg/dLLeukocytes, UA2+Negative - 500+++ Marsha/mcL Nitrite, UANegativeNegative - PositiveSpecimen (Source)Anatomical Location / LateralityCollection Method / VolumeCollection TimeReceived JtesOjtbh49/13/2025 10:14 AM EDT Narrative Authorizing ProviderResult TypeResult StatusAmy [facility] OF CARE TEST ENTER/EDIT ORDERABLESFinal Result * AFP, SERUM, OPEN SPINA BIFIDA (04/07/2025 10:31 AM EDT)ComponentValueRef Range Test MethodAnalysis TimePerformed AtPathologist SignatureRESULTSReport.TBHTEST RESULTS:*Screen Negative*.TBHGEST. AGE ON COLLECTION DATE20.7. weeksTBHGESTAT. AGE BASED ONLMP.TBHComment: Recalculations are not recommended when gestational dating by LMP and ultrasound are within 10 days. MATERNAL AGE AT EDD31.8. yrTBHRACECaucasian.RFWKPRZRS129. lbsTBHINSULIN DEP DIABETESNo.TBHMULTIPLE GESTATIONNo.TBHAFP VALUE45.0. ng/mLTBHAFP MOM0.82.TBHOSBR RISK 1 EQ00696.TBHINTERPRETATIONComment.TBHComment: Interpretation: Screen Negative This result is screen negative [...] Genetic Customer Services to discuss available options. ??The [place] [employer] recommends amniocentesis be offered to women age 35 and older. COMMENT:Comment.TBHComment: Jeny Avila, Ph.D., [facility] Director References: Available Upon Request. Multiples Of Median Cutoffs ?For AFP Elevations Becerra ?? 2.5 ? Black ?2.8 IDD ? 2.0 ? Twins ?4.5 ?Abbreviation Definitions IDD - Insulin Dep Diabetes OSBR - Open Spina Bifida Risk For further inquiries contact [employer] [facility] at [phone]. This test was developed and its performance characteristics determined by [employer]. It has not been cleared or approved by the Food and Drug Administration. Performed at: ??[facility] [place], [place] ??[id number] Officer Captain: Abdulaziz Aquino [facility], Phone: ??[phone] Specimen (Source)Anatomical Location / LateralityCollection Method / Volume Collection TimeReceived Time04/07/2025 10:31 AM EDT04/07/2025 10:35 AM EDT Narrative CLIN[facility] - 04/09/2025 6:08 PM EDT N N LMP [id number] 2 16 N 1 Y 183 N N N N N White/ Authorizing ProviderResult TypeResult StatusAmy Mitchel PALAB BLOOD ORDERABLES Final ResultPerforming OrganizationAddressCity/State/ZIP CodePhone Number [facility] * US OB CERVICAL LENGTH (04/04/2025 9:12 AM EDT)Anatomical RegionLaterality ModalityOtherSpecimen (Source)Anatomical Location / LateralityCollection Method / VolumeCollection TimeReceived Time04/04/2025 9:12 AM EDT Narrative 04/04/2025 9:14 AM EDT [facility] ?[address] ? [place] [address] ? Ultrasound Report ? Signed ? Patient: PRINCESS HUNTER A ?MR#: [id number] ?? : 1995 ?Acct:[id number] ?? Age/Sex: 29 / F ?ADM Date: 04/03/25 ?? Loc: US ? Attending Dr: Lisa Chen D.O. ? Ordering Physician: Lisa Chen D.O. ?? Date of Service: 04/03/25 ?? Procedure(s): US OB cervical length ?? Accession Number(s): [id number] ? cc: Lisa Chen D.O.; KOFFI WINTERS M.D. ? [facility] ? [address] ? [place] [address] ? Patient Name: ?? PRINCESS HUNTER ? MRN: [facility]:[id number] ? date: 1995 ?Sex: F ?? Assigned Patient Location: US ?? Current Patient Location: ? Accession/Order Number: [id number] ?? Exam Date: 04/03/2025 ??18:53 ?Report Date: 04/04/2025 ??09:12 ? At the request of: ?? LISA ??APRIL ??DO ? Procedure: ??US OB anatomy ? CLINICAL DATA: Screening anatomy survey ? ULTRASOUND OB ANATOMY ? COMPARISON: 01/30/2025 ? There is a single live intrauterine gestation in variable presentation. ??There ?? is cardiac and somatic activity with heart rate of 153 beats per ?? minutes. ??The amniotic fluid volume is subjectively normal. ??The placenta is ?? posterior and fundal and unremarkable in appearance. ??The neural axis and all ?? 4 extremities were surveyed by the back wedger and no abnormalities were ?? reported. ??The stomach, bladder, kidneys, three-vessel cord with ?? insertion, 4 chamber heart with right and left ventricular outflow tracts, ?? diaphragm, facial features and female gender are seen. ?? The following measurements were obtained: ?? Biparietal diameter ?4.7 cm ?20 weeks 1 day ?53% ?? Head circumference ? 17.5 cm ?? 20 weeks 0 days ? 38% ?? Abdominal circumference ?15.3 cm ?? 20 weeks 4 days ? 57% ?? Femur length ?3.1 cm ?19 weeks 5 days ?27% ?? The composite ultrasound age based on these measurements is 20 weeks 1 day +/- ?? 1 week 3 days. ??This correlates with dates based on the prior. ? / OB cervical length ?? IMPRESSION: ? SINGLE LIVE INTRAUTERINE GESTATION WITH ULTRASOUND AGE OF 20 WEEKS 1 DAY. ? UNREMARKABLE ANATOMY SURVEY. ? ULTRASOUND OB CERVICAL LENGTH ? COMPARISON: 01/30/2025 ? The cervix was evaluated with a transvaginal probe. ??The cervix is closed and ?? the estimated length is 4.2 cm. ??The end of the placenta is approximately 5.6 ?? cm from the internal cervical os. ? IMPRESSION: ? NORMAL CLOSED CERVIX. ? Impression dictated by: Cyndi Pisano M.D. ??04/04/2025 9:12 AM ? Dictation Location: RADIO-PC-30 ? Electronically authenticated by: [id number] ??Y ?? Date: 04/04/2025 ??09:12 ? Dictated By: ?Cyndi Pisano M.D. ? Signed By: ?04/04/25 0914 ? DD/ 0912 ? TD/TT: ? Concrete Curer: Procedure Note Radiology, Radiologist, MD - 04/04/2025 [place] [address] Ultrasound Report Signed Patient: PRINCESS HUNTER AMR#: [id number] : 1995Acct:[id number] Age/Sex: 29 / FADM Date: 04/03/25 Loc: US Attending Dr: Lisa Chen D.O. Ordering Physician: Lisa Chen D.O. Date of Service: 04/03/25 Procedure(s): US OB cervical length Accession Number(s): [id number] cc: Lisa Chen D.O.; KOFFI WINTERS M.D. [place] [address] Patient Name: PRINCESS HUNTER MRN: [id number] date: 1995 Sex: F Assigned Patient Location: US Current Patient Location: Accession/Order Number: [id number] Exam Date: 04/03/2025 18:53 Report Date: 04/04/2025 [...] andall 4 extremities were surveyed by the back wedger and no abnormalities were reported. The stomach, [...] Pisano M.D. 04/04/2025 9:12 AM Dictation Location: [place] [address] Electronically authenticated by: [id number] Y Date: 9:12 Dictated By: Cyndi Pisano M.D. Signed By:04/04/25913 DD/ 1 TD/TT: Concrete Curer: Authorizing ProviderResult TypeResult StatusCorey April DOCLINISYNC IMAGINGFinal Result * US OB ANATOMY (04/04/2025 9:12 AM EDT)Anatomical RegionLateralityModalityOther Specimen (Source)Anatomical Location / LateralityCollection Method / Volume Collection TimeReceived Time04/04/2025 9:12 AM EDT Narrative 04/04/2025 9:14 AM EDT [facility] ?[address] ? [place] [address] ? Ultrasound Report ? Signed ? Patient: PRINCESS HUNTER ?MR#: [id number] ?? : 1995 ?Acct:[id number] ?? Age/Sex: 29 / F ?ADM Date: 04/03/25 ?? Loc: US ? Attending Dr: Lisa Chen D.O. ? Ordering Physician: Lisa Chen D.O. ?? Date of Service: 04/03/25 ?? Procedure(s): US OB anatomy ?? Accession Number(s): [id number] ? cc: Lisa Chen D.O.; KOFFI WINTERS M.D. ? [facility] ? [address] ? [place] [address] ? Patient Name: ?? PRINCESS HUNTER ? MRN: [id number] ? date: 1995 ?Sex: F ?? Assigned Patient Location: US ?? Current Patient Location: ? Accession/Order Number: [id number] ?? Exam Date: 04/03/2025 ??18:53 ?Report Date: 04/04/2025 ??09:12 ? At the request of: ?? LISA ??APRIL ??DO ? Procedure: ??US OB anatomy ? CLINICAL DATA: Screening anatomy survey ? ULTRASOUND OB ANATOMY ? COMPARISON: 01/30/2025 ? There is a single live intrauterine gestation in variable presentation. ??There ?? is cardiac and somatic activity with heart rate of 153 beats per ?? minutes. ??The amniotic fluid volume is subjectively normal. ??The placenta is ?? posterior and fundal and unremarkable in appearance. ??The neural axis and all ?? 4 extremities were surveyed by the back wedger and no abnormalities were ?? reported. ??The stomach, bladder, kidneys, three-vessel cord with ?? insertion, 4 chamber heart with right and left ventricular outflow tracts, ?? diaphragm, facial features and female gender are seen. ?? The following measurements were obtained: ?? Biparietal diameter ?4.7 cm ?20 weeks 1 day ?53% ?? Head circumference ? 17.5 cm ?? 20 weeks 0 days ? 38% ?? Abdominal circumference ?15.3 cm ?? 20 weeks 4 days ? 57% ?? Femur length ?3.1 cm ?19 weeks 5 days ?27% ?? The composite ultrasound age based on these measurements is 20 weeks 1 day +/- ?? 1 week 3 days. ??This correlates with dates based on the prior. ? US/US OB anatomy ?? IMPRESSION: ? SINGLE LIVE INTRAUTERINE GESTATION WITH ULTRASOUND AGE OF 20 WEEKS 1 DAY. ? UNREMARKABLE ANATOMY SURVEY. ? ULTRASOUND OB CERVICAL LENGTH ? COMPARISON: 01/30/2025 ? The cervix was evaluated with a transvaginal probe. ??The cervix is closed and ?? the estimated length is 4.2 cm. ??The end of the placenta is approximately 5.6 ?? cm from the internal cervical os. ? IMPRESSION: ? NORMAL CLOSED CERVIX. ? Impression dictated by: Cyndi Pisano M.D. ??04/04/2025 9:12 AM ? Dictation Location: RADIO-PC-30 ? Electronically authenticated by: [id number] ??Y ?? Date: 04/04/2025 ??09:12 ? Dictated By: ?Cyndi Pisano M.D. ? Signed By: ?04/04/25 0914 ? DD/ 0912 ? TD/TT: ? Concrete Curer: Procedure Note Radiology, Radiologist, - 04/04/2025 [place] [address] Ultrasound Report Signed Patient: PRINCESS HUNTER AMR#: [id number] : 1995Acct:[id number] Age/Sex: 29 / FADM Date: 04/03/25 Loc: US Attending Dr: Lisa Chen D.O. Ordering Physician: Lisa Chen D.O. Date of Service: 04/03/25 Procedure(s): US OB anatomy Accession Number(s): [id number] cc: Lisa Chen D.O.; KOFFI WINTERS M.D. The [place] [id number] Patient Name: PRINCESS HUNTER MRN: [id number] date: 1995 Sex: F Assigned Patient Location: US Current Patient Location: Accession/Order Number: [id number] Exam Date: 04/03/2025 18:53 Report Date: 04/04/2025 [...] andall 4 extremities were surveyed by the back wedger and no abnormalities were reported. The stomach, [...] Pisano M.D. 04/04/2025 9:12 AM Dictation Location: [facility] Electronically authenticated by: [id number] Y Date: 9:12 Dictated By: Cyndi Pisano M.D. Signed By:04/04/2514 DD/ 1 TD/TT: Concrete Curer: Authorizing ProviderResult TypeResult StatusCorey April DOCLINISYNC IMAGINGFinal Result * US OB limited 1+ fetuses (03/14/2025 3:22 PM EDT)Anatomical RegionLaterality ModalityBodyUltrasoundSpecimen (Source)Anatomical Location / Laterality Collection Method / VolumeCollection TimeReceived Time03/15/2025 2:08 PM EDT Impressions 03/15/2025 2:28 PM EDT Normal viable fetus, no gestational sac abnormality TRANSCRIBED BY: ? ELECTRONICALLY SIGNED BY: Michael Eid MD Narrative 03/15/2025 2:28 PM EDT FINDINGS: Cephalic presentation. ??Posterior placenta. ?? heart rate 156. ??No evidence of significant amniotic band or subchronic hemorrhage. Procedure Note Michael Eid MD - 03/15/2025 FINDINGS: Cephalic presentation. Posterior placenta. heart rate 156. Noevidence of significant amniotic band or subchronic hemorrhage. IMPRESSION: Normal viable fetus, no gestational sac abnormality TRANSCRIBED BY: ELECTRONICALLY SIGNED BY: Michael Eid MD Authorizing ProviderResult TypeResult StatusCorey April DOIMG OB US PROCEDURES Final Result * RECURRENT VAGINITIS (HTRX) (03/07/2025 4:35 PM EDT)ComponentValueRef RangeTest MethodAnalysis TimePerformed AtPathologist SignatureATOPOBIUM DEKUBVP038.961 - 24.689 ppm03/09/2025 6:25 AM EDTHealthTrackRx at LabPortATOPOBIUM VAGINAENot Hpabelfs03.961 - 24.689 ppm03/09/2025 6:25 AM EDTHealthTrackRx at LabPortBVAB 2,3 (BACTERIAL VAGINOSIS ASSOCIATED BACTERIA 2, 3); MOBILUNCUS OBM696.961 - 24.689 ppm03/09/2025 6:25 AM EDTHealthTrackRx at LabPortBVAB 2,3 (BACTERIAL VAGINOSIS ASSOCIATED BACTERIA 2, 3); MOBILUNCUS SPPNot Fqacxbgk67.961 - 24.689 ppm03/09/2025 6:25 AM EDTHealthTrackRx at LabPortCANDIDA ALBICANS, PARAPSILOSIS, ZKBSTVYCAL965.000 - 30.347 ppm03/09/2025 6:25 AM EDT [facility] at LabPortCANDIDA ALBICANS, PARAPSILOSIS, TROPICALISNot Detected 23.000 - 30.347 ppm03/09/2025 6:25 AM EDTHealthTrackRx at LabPortCANDIDA QIDDCQEQ096.000 - 31.618 ppm03/09/2025 6:25 AM EDTHealthTrackRx at LabPort MITCH GLABRATANot Odndskil17.000 - 31.618 ppm03/09/2025 6:25 AM EDT [facility] at LabPortCANDIDA JCEWKP789.000 - 30.873 ppm03/09/2025 6:25 AM EDTHealthTrackRx at LabPortCANDIDA KRUSEINot Rkgierli88.000 - 30.873 ppm 03/09/2025 6:25 AM EDTHealthTrackRx at LabPortCHLAMYDIA OMJMVVPCPDT420.000 - 31.586 ppm03/09/2025 6:25 AM EDTHealthTrackRx at LabPortCHLAMYDIA TRACHOMATIS Not Jcwbljwx19.000 - 31.586 ppm03/09/2025 6:25 AM EDTHealthTrackRx at LabPort GARDNERELLA IHHNASRWY979.961 - 24.689 ppm03/09/2025 6:25 AM EDTHealthTrackRx at LabHealthsouth [facility]acon[facility] Rehabilitation HospitalGARDNERELLA VAGINALISNot Zkndupss40.961 - 24.689 ppm03/09/2025 6:25 AM EDTHealthTrackRx at LabPortMEGASPHAERA (TYPES 1, 2)019.961 - 24.689 ppm 03/09/2025 6:25 AM EDTHealthTrackRx at LabPortMEGASPHAERA (TYPES 1, 2)Not Jjtuhokh23.961 - 24.689 ppm03/09/2025 6:25 AM EDTHealthTrackRx at LabPort NEISSERIA DECUWDZIPCD756.000 - 32.587 ppm03/09/2025 6:25 AM EDTHealthTrackRx at [facility] CenterNEISSERIA GONORRHOEAENot Oxhxrzvs39.000 - 32.587 ppm03/09/2025 6:25 AM EDTHealthTrackRx at LabPortTRICHOMONAS SAWUBUTSR842.000 - 31.995 ppm 03/09/2025 6:25 AM EDTHealthTrackRx at LabHealthsouth Deaconess Rehabilitation HospitalTRICHOMONAS VAGINALISNot Hgcqgqpl46.000 - 31.995 ppm03/09/2025 6:25 AM EDTHealthTrackRx at LabHealthsouth [facility] MYCOPLASMA ZSCXBGLOWZ287.961 - 24.689 ppm03/09/2025 6:25 AM EDTHealthTrackRx at LabPortMYCOPLASMA GENITALIUMNot Xlhrgwsw58.961 - 24.689 ppm03/09/2025 6:25 AM EDTHealthTrackRx at LabPortSpecimen (Source)Anatomical Location / LateralityCollection Method / VolumeCollection TimeReceived TimeTissue 03/07/2025 4:35 PM EDT03/09/2025 1:25 AM EDT Narrative Authorizing ProviderResult TypeResult StatusAmy [facility] BLOOD ORDERABLES Final ResultPerforming OrganizationAddressCity/State/ZIP CodePhone Number [facility] [address] [place] [address] * IGP,APTIMA HPV,AGE GDLN (03/07/2025 3:24 PM EDT)ComponentValueRef RangeTest MethodAnalysis TimePerformed AtPathologist SignatureAGE GDLN ACOG TESTINGNote. TBHComment: ?? TESTS ? RESULT ??FLAG ??UNITS ?REF RANGE ??LAB ?? Clinician Provided Cytology Information ?? Source.............Endocervix ?? No. of containers..01 ThinPrep Vial Age Algo ACOG Jessica... ??30-65 ? 01 ?FLAG LEGEND: ?L-Low Normal,H-High Normal,LL-Alert Low,HH-Alert High <-Panic Low,>-Panic High,A-Abnormal,AA-Critical Abnormal Performed at: 01 =G ?[facility] ?? [address] [place] ??[phone] ?? Karena Lester MD, IGP, APTIMA HPV, RFX 16/18,45Note.TBHComment: ?? TESTS ? RESULT ??FLAG ??UNITS ?REF RANGE ??LAB DIAGNOSIS: ?02 ?? NEGATIVE FOR INTRAEPITHELIAL LESION OR MALIGNANCY. Specimen adequacy: ?02 ?? Satisfactory for evaluation. No endocervical component is identified. Performed by: ? 02 ?? [employer] (ASCP) . ? 02 Note: ? Note ?02 ?? The Pap smear is a screening test designed to aid in the ?? detection of premalignant and malignant conditions of the ?? uterine cervix. ??It is not a diagnostic procedure and ?? should not be used as the sole means of detecting cervical ?? cancer. ??Both false-positive and false-negative reports do ?? occur. Test Methodology: ? Note ?02 ?? This liquid based ThinPrep(R) pap test was screened with ?? the use of an image guided system. HPV Genotype Reflex ?? Note ?02 ?? Criteria not met, HPV Genotype not performed. ?FLAG LEGEND: ?L-Low Normal,H-High Normal,LL-Alert Low,HH-Alert High <-Panic Low,>-Panic High,A-Abnormal,AA-Critical Abnormal Performed at: 02 WB ?[facility] ?? [address], [place] ??[phone] ?? Karena Lester MD, HPV APTIMANegativeNegativeTBHComment: This nucleic acid amplification test detects fourteen high- risk HPV types (16,18,31,33,35,39,45,51,52,56,58,59,66,68) without differentiation. Performed at: ??=G - [facility] ??[id number] Officer Captain: Karena Lester MD, Phone: ??[phone] Performed at: ??WB - [facility] ??[id number] Officer Captain: Karena Lester MD, Phone: ??[phone] Specimen (Source)Anatomical Location / LateralityCollection Method / Volume Collection TimeReceived Time03/07/2025 3:24 PM EDT03/07/2025 9:15 PM EDT Narrative CLINISYNC - 03/11/2025 4:10 PM EDT SPATULA-ALONE ENDOCERVIX Authorizing ProviderResult TypeResult StatusAmy Aragon PALAB BLOOD ORDERABLES Final ResultPerforming OrganizationAddressCity/State/ZIP CodePhone Number CLINISYNC [facility] * Pap Smear (03/07/2025 12:00 AM EDT)Specimen (Source)Anatomical Location / LateralityCollection Method / VolumeCollection TimeReceived TimeSwabCervical swab / Unknown Narrative Authorizing ProviderResult TypeResult StatusAmy Mitchel PALAB CYTOLOGY ORDERABLES Final ResultPerforming OrganizationAddressCity/State/ZIP CodePhone Number EXTERNAL LAB * US OB less than 14 weeks early (02/21/2025 3:26 PM EDT)Anatomical Region LateralityModalityBodyUltrasoundSpecimen (Source)Anatomical Location / LateralityCollection Method / VolumeCollection TimeReceived Time02/22/2025 12:41 PM EDT Impressions 02/22/2025 2:39 PM EDT Viable intrauterine no abnormal subchorionic fluid collection. Given the additional findings within the gestational sac, follow up imaging may be of assistance. TRANSCRIBED BY: ? ELECTRONICALLY SIGNED BY: Michael Eid MD Narrative 02/22/2025 2:39 PM EDT FINDINGS: Single viable intrauterine , cardiac activity 145 bpm. Normal cardiac activity. ??No significant subchorionic fluid collection. ??Thin septation neighboring the cord, questionable significance, possible [...] BY: ELECTRONICALLY SIGNED BY: Michael Eid MD Authorizing ProviderResult TypeResult StatusCorey April DOIMG OB US PROCEDURES Final Result from Last 3 Months Additional Health Concerns Active ProblemsNoted DateDiagnosed DateOB Ufmsvkwrs67/29/2023 Insurance Care Teams Team MemberRelationshipSpecialtyStart [place] [address] [address] [address] PCP - GeneralFamily Medicine01/14/23
--- OUTSIDE RECORDS SUMMARY | 2025-05-19 11:26 | XMS_ITS | Encounter Summary ---
Author Organization [facility] Address [address] [facility] [place] [address] Care Team Providers Care Supervisor [place] Name Role Phone Suzanne Uriarte MD Primary Care Provider +1- [phone] Encounter Details DateTypeDepartmentCare Team (Latest Contact Info)Qdymuqemaza63/02/2024linisync Result Encounter [facility] External Department Unsolicited Lisa Chen DO [address] [place] [address] Social History Tobacco UseTypesPacks/DayYears UsedDateSmoking Tobacco: Never Assessed CommentsYesSex and Gender InformationValueDate RecordedSex Assigned at Whjozx6812/21/2022 8:22 PM EDTLegal LdmTfigum35/15/2023 11:40 PM EDTGender DmefzgrsMeasdb07/05/2023 8:22 PM EDTSexual YvoltrqnannFwvnjqcd41/05/2023 8:22 PM EDTCOVID-19 ExposureResponseDate RecordedIn the last 10 days, have you been in contact with someone who was confirmed or suspected to have Co ronavirus/COVID-19?No / Qrvvzm1006/24/2023 5:49 AM ESTdocumented as of this encounter Plan of Treatment DateTypeDepartmentCare Team (Latest Contact Info)Mmclipstbvw87/11/2025 11:40 AM ESTRoutine [facility] [place] [facility] [address] [facility] [address] Lisa Chen DO [address] [place] [address] documented as of this encounter Goals GoalPatient Goal TypeAssociated ProblemsRecent ProgressPatient-Stated?Author Reminders Care PlanOB RemindersNoOpen Scheduling, Backgrounddocumented as of this encounter Procedures Procedure NamePriorityDate/TimeAssociated DiagnosisCommentsUS OB BPP W NON-WSRTNP5507/20/2023 7:11 AM EST documented in this encounter Results * US OB BPP W NON-STRESS (07/20/2023 7:11 AM EST)Anatomical Region LateralityModalityOtherSpecimen (Source)Anatomical Location / Laterality Collection Method / VolumeCollection TimeReceived Time07/20/2023 7:11 AM EST Narrative 07/20/2023 7:14 AM EST [facility] ?[address] ? [place] [address] ? Ultrasound Report ? Signed ? Patient: CANTU,PRINCESS A ?MR#: [id number] ?? : 1995 ?Acct:[id number] ?? Age/Sex: 27 / F ?ADM Date: 07/17/23 ?? Loc: US ? Attending Dr: Lisa Chen D.O. ? Ordering Physician: Lisa Chen D.O. ?? Date of Service: 07/17/23 ?? Procedure(s): US OB BPP w non-stress ?? Accession Number(s): [id number] ? cc: Lisa Chen D.O.; Physician,Non-Staff M.D. ? [facility] ? [address] ? [place] [address] ? Patient Name: ?? PRINCESS A CANTU ? MRN: [id number] ? date: 1995 ?Sex: F ?? Assigned Patient Location: US ?? Current Patient Location: ? Accession/Order Number: [id number] ?? Exam Date: 07/17/2023 ??11:20 ?Report Date: 07/20/2023 ??07:11 ? At the request of: ?? LISA ??APRIL ? Procedure: ??US OB BPP w non-stress ? EXAMINATION: US OB BPP w non-stress ? HISTORY: HYPERTENSION ? COMPARISON: No relevant comparison available. ? TECHNIQUE: Ultrasound biophysical profile was performed in the radiology ?? department. . ? FINDINGS: ?? BREATHING MOVEMENTS: 2.0 ?? GROSS BODY MOVEMENTS: 2.0 ?? TONE: 2.0 ?? QUALITATIVE AMNIOTIC FLUID VOLUME: 2.0 ? PRESENTATION: BREECH ?? HEART RATE: 135.7 bpm H.B./min ?? AMNIOTIC FLUID VOLUME: 15.3 cm cm ?? GESTATIONAL AGE: 34 weeks 5 days ? CONCLUSION: ? Total biophysical profile score: 8.0 ? Electronically authenticated by: HAYLIE ??PERICO ?? Date: 07/20/2023 ??07:11 ? Dictated By: ?Haylie River M.D. ? Signed By: ?07/20/23713 ? DD/ 0711 ? TD/TT: ? Grease And Tallow Pumper: Procedure Note Radiology, Radiologist, MD - 09/22/2023 [place] [address] Ultrasound Report Signed Patient: PRINCESS CANTU AMR#: [id number] : 1995Acct:[id number] Age/Sex: 27 / FADM Date: 07/17/23 Loc: US Attending Dr: Lisa Chen D.O. Ordering Physician: Lisa Chen D.O. Date of Service: 07/17/23 Procedure(s): US OB BPP w non-stress Accession Number(s): [id number] cc: Lisa Chen D.O.; Physician,Non-Staff M.DLima The [place] [address] Patient Name: PRINCESS CANTU MRN: [id number] date: 1995 Sex: F Assigned Patient Location: US Current Patient Location: Accession/Order Number: [id number] Exam Date: 07/17/2023 11:20 Report Date: 07/20/2023 [...] 07:11 Dictated By: Haylie River M.D. Signed By:07/20/23713 DD/ 0 TD/TT: Grease And Tallow Pumper: Authorizing ProviderResult TypeResult StatusCorey April DOCLINISYNC IMAGINGFinal Result documented in this encounter Visit Diagnoses Not on filedocumented in this encounter Additional Health Concerns Active ProblemsNoted DateDiagnosed DateOB Mhmprcnbj33/29/2023 documented as of this encounter Care Teams Team MemberRelationshipSpecialtyStart [place] [address] [address] [address] PCP - GeneralFamily Medicine01/14/23documented as of this encounter
--- OUTSIDE RECORDS SUMMARY | 2025-05-19 11:26 | XMS_ITS | Encounter Summary ---
Author Organization [facility] Address [address] [facility] [place] [address] Care Team Providers Care Toe Laster Name Role Phone Suzanne Uriarte MD Primary Care Provider +1- [phone] Encounter Details DateTypeDepartmentCare Team (Latest Contact Info)Edmkdsmvfyj43/16/2024Clinisync Result Encounter [facility] External Department Unsolicited Lisa Chen, [address] [place], [place] [address] Social History Tobacco UseTypesPacks/DayYears UsedDateSmoking Tobacco: Never Assessed CommentsYesSex and Gender InformationValueDate RecordedSex Assigned at Qyboja9612/21/2022 8:22 PM EDTLegal FxmHecvus83/15/2023 11:40 PM EDTGender RknezqllIktuvu44/05/2023 8:22 PM EDTSexual MilnzqagwjyBuvejlhw16/05/2023 8:22 PM EDTdocumented as of this encounter Plan of Treatment DateTypeDepartmentCare Team (Latest Contact Info)Mewtvnatayh70/11/2025 11:40 AM ESTRoutine [facility] [place] [facility] [address] [place] [address] Lisa Chen DO [address] [place] [address] documented as of this encounter Goals GoalPatient Goal TypeAssociated ProblemsRecent ProgressPatient-Stated?Author Reminders Care PlanOB RemindersNoOpen Scheduling, Backgrounddocumented as of this encounter Procedures Procedure NamePriorityDate/TimeAssociated DiagnosisCommentsUS OB BPP W NON-HSWEXC5508/03/2023 7:18 AM EST documented in this encounter Results * US OB BPP W NON-STRESS (08/03/2023 7:18 AM EST)Anatomical Region LateralityModalityOtherSpecimen (Source)Anatomical Location / Laterality Collection Method / VolumeCollection TimeReceived Time08/03/2023 7:18 AM EST Narrative 08/03/2023 7:20 AM EST [facility] ?[address] ? [employer], [facility] ? Ultrasound Report ? Signed ? Patient: CANTU,PRINCESS A ?MR#: [id number] ?? : 1995 ?Acct:[id number] ?? Age/Sex: 27 / F ?ADM Date: 07/31/23 ?? Loc: US ? Attending Dr: Lisa Chen D.O. ? Ordering Physician: Lisa Chen D.O. ?? Date of Service: 07/31/23 ?? Procedure(s): US OB BPP w non-stress ?? Accession Number(s): [id number] ? cc: Lisa Chen D.O.; Physician,Non-Staff M.D. ? [facility] ? [address] ? [place] [address] ? Patient Name: ?? PRINCESS A CANTU ? MRN: [id number]:[id number] ? date: 1995 ?Sex: F ?? Assigned Patient Location: US ?? Current Patient Location: US ?? Accession/Order Number: [id number] ?? Exam Date: 07/31/2023 ??11:04 ?Report Date: 08/03/2023 ??07:18 ? At the request of: ?? LISA ??APRIL ? Procedure: ??US OB BPP w non-stress ? EXAMINATION: US OB BPP w non-stress ? HISTORY: CHRONIC HYPERTENSION ? COMPARISON: No relevant comparison available. ? TECHNIQUE: Ultrasound biophysical profile was performed in the radiology ?? department. ? FINDINGS: ?? BREATHING MOVEMENTS: 2.0 ?? GROSS BODY MOVEMENTS: 2.0 ?? TONE: 2.0 ?? QUALITATIVE AMNIOTIC FLUID VOLUME: 2.0 ? PRESENTATION: Breech ?? HEART RATE: 138.5 bpm H.B./min ?? AMNIOTIC FLUID VOLUME: 12.2 cm cm ?? GESTATIONAL AGE: 36 weeks 5 days ? CONCLUSION: ? Total biophysical profile score: 8.0 ? Electronically authenticated by: HAYLIE ??PERICO ?? Date: 08/03/2023 ??07:18 ? Dictated By: ?Haylie River M.D. ? Signed By: ?01/16/24 0720 ? DD/ 0718 ? TD/TT: ? Lead Javascript Developer: Procedure Note Radiology, Radiologist, - 09/22/2023 [place] [address] Ultrasound Report Signed Patient: PRINCESS CANTU AMR#: [id number] : 1995Acct:[id number] Age/Sex: 27 / FADM Date: 07/31/23 Loc: US Attending Dr: Lisa Chen D.O. Ordering Physician: Lisa Chen D.O. Date of Service: 07/31/23 Procedure(s): US OB BPP w non-stress Accession Number(s): [id number] cc: Lisa Chen D.O.; Physician,Non-Staff M.DLima The [place] [id number] Patient Name: PRINCESS CANTU MRN: [id number] date: 1995 Sex: F Assigned Patient Location: US Current Patient Location: US Accession/Order Number: [id number] Exam Date: 07/31/2023 11:04 Report Date: 08/03/2023 [...] River M.D. Signed By:08/03/23719 DD/ 7 TD/TT: Lead Javascript Developer: Authorizing ProviderResult TypeResult StatusCorey April DOCLINISYNC IMAGINGFinal Result documented in this encounter Visit Diagnoses Not on filedocumented in this encounter Additional Health Concerns Active ProblemsNoted DateDiagnosed DateOB Spkoziows05/29/2023 documented as of this encounter Care Teams Team MemberRelationshipSpecialtyStart [place] [address] [place] [address] PCP - GeneralFamily Medicine01/14/23documented as of this encounter
--- OUTSIDE RECORDS SUMMARY | 2025-05-19 11:26 | XMS_ITS | Encounter Summary ---
Author Organization [facility] Address [address] [place] [address] Phone Care Team Providers Care Caser Name Role Phone Suzanne Uriarte MD Primary Care Provider + Encounter Details DateTypeDepartmentCare Team (Latest Contact Info)Twkagxweswe38/27/2025Orders Only [address]iu [address] [place] [phone] Nedra Deleon MD [address] [place] [address] [address]iu [address], [place] [address] [place] [address] Unspecified convulsions (Multi) Social History Tobacco UseTypesPacks/DayYears UsedDateSmoking Tobacco: NeverPassive Smoke Exposure: NeverSmokeless Tobacco: NeverAlcohol UseStandard Drinks/WeekComments Not Currently0 (1 standard drink = 0.6 oz pure alcohol)SociallyAUDIT-CAnswerDate RecordedQ1: How often do you have a drink containing alcohol?Never05/03/2024Q2: How many drinks containing alcohol do you have on a typical day when you are drinking?Patient does not drink05/03/2024Q3: How often do you have six or more drinks on one occasion?Never05/03/2024HQ-2AnswerDate RecordedPatient Health Questionnaire-2 Hhxix995/16/2024CommentsNoSex and Gender Information ValueDate RecordedSex Assigned at BirthNot on fileLegal FczHirvuk50/25/2022 10:33 PM ESTGender IdentityNot on fileSexual OrientationNot on filedocumented as of this encounter Plan of Treatment Not on file documented as of this encounter Visit Diagnoses Diagnosis Unspecified convulsions (Multi) documented in this encounter Additional Health Concerns AssessmentNoted TimeA fall risk assessment has been completed for the patient 05/03/2024 9:18 AM EDTdocumented as of this encounter Care Teams Team MemberRelationshipSpecialtyStart [place] [address] [place] [address] PCP - General08/14/20documented as of this encounter
--- OUTSIDE RECORDS SUMMARY | 2025-05-19 11:26 | XMS_ITS | Clinical Summary ---
Author Organization [facility] Address [address] [place] [address] Phone Care Team Providers Care Transition Specialist Name Role Phone Suzanne Uriarte MD Primary Care Provider + Allergies No known active allergies Medications MedicationSigDispense QuantityRefillsLast FilledStart DateEnd DateStatus labetalol (Normodyne) 300 mg tablet Indications:Benign essential hypertensionTAKE 1 TABLET (300 MG) BY MOUTH 2 TIMES A DAY. 60 tablet 5Active lamoTRIgine (LaMICtal) 100 mg tablet Indications:Unspecified convulsions (Multi)Take 1 tablet (100 mg) by mouth 2 times a day. 180 tablet [id number]/6Active lamoTRIgine (LaMICtal) 100 mg tablet Indications:Unspecified convulsions (Multi)TAKE 1 TABLET BY MOUTH TWICE A DAY 60 tablet [id number](Reorder) Active Problems ProblemNoted DateDiagnosed MqulVbrugql34/25/2025 Assessment & Plan (09/14/2024 1:31 PM EST): We talked about healthy habits and sleep hygiene Orders: CBC; Future TSH with reflex to Free T4 if abnormal; Future Vitamin B12; Future Tyrhjtp4210/02/2022enign essential nbfgjsxtqihr25/17/2023 Assessment & Plan (09/14/2024 1:31 PM EST): [...] Primary Care - PCP - Established; Future Vgodspr5610/02/2022 Assessment & Plan (09/14/2024 1:31 PM EST): Good control. Follow up with neuro. Continue meds Vitamin B12 mezglratzy25/17/2023 Assessment & Plan (09/14/2024 1:31 PM EST): Resolved Problems ProblemNoted DateDiagnosed DateResolved DateClass 1 obesity with body mass index (BMI) of 32.0 to 32.9 in adult/3496Rdntpmveyrdz76/29/2023 09/12/2024bnormal weight gain/llergic invdhopk13/17/2023 05/03/2024acterial chhajenar09ilateral chronic otitis media hest painhronic wpwqvltcuvvi83/17/2023 05/03/2024hronic byghkpnwk55onductive hearing loss, bxzzkcvsi09/Elevated BP without diagnosis of hypertension /Globus sgqefkkra99/Hair loss10/02/2022 05/03/20248715Kehwnwbu26Tonsil stoneVaginal tvogpwajo83 Encounters DateTypeDepartmentCare JfouTnmpciotipf14/27/2025Orders Only [facility] [address] [facility] [address] [address] Nedra Deleon MD Unspecified convulsions (Multi)04/18/2025Telephone [facility] [address] [facility] [place] [address] Alfredo KimBAYRON 04/17/2025Refill [facility] [address] [place] [address] Suzanne Uriarte MD Benign essential detnncgjzvlk01/23/2025Scanned Document [facility] [address] [place] [address] Suzanne Uriarte MD 03/21/2025Refill [facility] [address] [place] [address] Suzanne Uriarte MD Benign essential uflbftvvkysu05/12/2025Scanned Document [facility] [address] [place] [address] Suzanne Uriarte MD from Last 3 Months Immunizations ImmunizationAdministration DatesNext SwzQNY5704/16/1994,02/12/1994,1993DTaP, Jhscoacwcns87/25/1999,01/07/1995Flu vaccine (IIV4), preservative free *Check age/dose*04/22/2023,04/21/2022,04/18/2021,05/06/2017Flu vaccine, quadrivalent, no egg protein, age 6 month or greater (FLUCELVAX)05/09/2019Hepatitis B vaccine, 19 yrs and under (RECOMBIVAX, ENGERIX)06/18/1994,01/08/1994,1993Hepatitis B vaccine, adult *Check Product/Dose*11/01/2023HiB PRP-OMP conjugate vaccine, pediatric (PEDVAXHIB)10/22/1994,04/16/1994,02/12/1994,1993Hib (HbOC) 03/12/1999Influenza, injectable, flssbdunhwnc16/11/2018MMR vaccine, subcutaneous (MMR II)03/12/1999,10/22/1994Meningococcal ACWY-D (Menactra) 4-valent conjugate qrdmumr8102/25/2007OPV03/12/1999,04/16/1994,02/12/1994,1993PPD Test 11/30/2014,12/15/2013Pneumococcal polysaccharide vaccine, 23-valent, age 2 years and older (PNEUMOVAX 23)01/14/2016Poliovirus vaccine, subcutaneous (IPOL) 10/22/1994Tdap vaccine, age 7 year and older (BOOSTRIX, ADACEL)06/08/2023, 02/16/2018,03/02/2008 Family History Medical HistoryRelationNameCommentsHypertensionFatherRichardCancerMaternal GrandfatherJosephDementiaMaternal Grandmother 1AliceDementiaMaternal Grandmother 2AliceCancerPaternal GrandmotherUnknownRelationNameStatusCommentsFatherRichard AliveMaternal GrandfatherJosephAliveMaternal Grandmother 1AliceAliveMaternal Grandmother 2AliceAlivePaternal GrandmotherUnknownAlive Social History Tobacco UseTypesPacks/DayYears UsedDateSmoking Tobacco: NeverPassive Smoke Exposure: NeverSmokeless Tobacco: Never Tobacco Cessation:Counseling Given: Not Answered Alcohol UseStandard Drinks/WeekCommentsNot Currently0 (1 standard drink = 0.6 oz pure alcohol)SociallyAUDIT-CAnswerDate RecordedQ1: How often do you have a drink containing alcohol?Never05/03/2024Q2: How many drinks containing alcohol do you have on a typical day when you are drinking?Patient does not drink05/03/2024Q3: How often do you have six or more drinks on one occasion?Never05/03/2024HQ-2 AnswerDate RecordedPatient Health Questionnaire-2 Bsdbc948/16/2024 CommentsNoSex and Gender InformationValueDate RecordedSex Assigned at BirthNot on fileLegal AbtYfhiou25/25/2022 10:33 PM ESTGender IdentityNot on fileSexual OrientationNot on file Last Filed Vital Signs Vital SignReadingTime TakenCommentsBlood Zwxbhcrl547/9609/12/2024 12:28 PM EST Gwvrk164609/12/2024 12:28 PM SPMBawhwwuckzg86.3 ??C (97.3 ??F)09/12/2024 12:28 PM ESTRespiratory Rjds458707/31/2022 10:54 AM ESTOxygen Buizmdmxah624%12/24/2021 11:32 AM EDTInhaled Oxygen Concentration--Yfvqgx01.1 kg (183 lb 4 oz)09/12/2024 12:28 PM ZRSUbsqhm227.3 cm (5' 9 )09/12/2024 12:28 PM ESTBody Mass Index27.06 09/12/2024 12:28 PM EST Plan of Treatment Health MaintenanceDue DateLast DoneCommentsHIV Jhopldwxx96/16/1994Hepatitis C Uwlarcrdm85/16/2012HPV/Pkzpdy9710/01/2014HPV Vaccines (1 - 3-dose standard series) 2020Yearly Adult Uhxozbbz15, 07/31/2022, 07/31/2022, Additional history existsInfluenza Vaccine (#1)/11/2022, 04/21/2022, 04/18/2021, Additional history existsCOVID-19 Vaccine (2 - 2024- season) /ervical Cancer Ksrhjwzfr22/20/2028Pap Smear03/07/2028 03/07/2025, 03/10/2023, 03/09/2023, Additional history existsLipid Panel DTaP/Tdap/Td Vaccines (9 - Td or Tdap), 02/16/2018, 03/02/2008, Additional history existsZoster Vaccines (1 of 2) 10/02/2043HIB AniqhgkgOraxbpjik62/25/1999, 10/22/1994, 04/16/1994, Additional history existsIPV MdwlcuwpDbxdlvimp27/25/1999, 10/22/1994, 04/16/1994, Additional history existsMMR IgaqfugoRhgyxwjnw63/25/1999, 10/22/1994 Meningococcal VaccineAged Out02/25/2007No longer eligible based on patient's age to complete this topicPneumococcal Vaccine: Pediatrics and At-Risk Adult PatientsAged Out01/14/2016No longer eligible based on patient's age to complete this topicHepatitis B RmseaxlsCwmopgive60/15/2024, 06/18/1994, 01/08/1994, Additional history existsHepatitis A VaccinesAged OutNo longer eligible based on patient's age to complete this topicRotavirus VaccinesAged OutNo longer eligible based on patient's age to complete this topic Procedures Procedure NamePriorityDate/TimeAssociated DiagnosisCommentsLIPID PANELRoutine 09/12/2024 1:43 PM EST Well adult health check from Last 3 Months or Most Recently Relevant to Health Maintenance Results * Lipid Panel (09/12/2024 1:43 PM EST)ComponentValueRef RangeTest MethodAnalysis TimePerformed AtPathologist SignatureCHOLESTEROL, KYSZO495<200 mg/dLQuest Ellwood Medical CenterHDL HXCJIZSTDUW57> OR = 50 mg/dLQuest Ellwood Medical CenterTRIGLYCERIDES103<150 mg/dLQuest Ellwood Medical CenterMupixhhqytgj-HnzsorypwcNDH-WSMKOQAHVLB79ya/dL (calc)[facility] HospitalComment: Reference range: <100 Desirable range <100 mg/dL for primary prevention; <70 mg/dL for patients with CHD or diabetic patients with > or = 2 CHD risk factors. LDL-C is now calculated using the Tres-Edmund calculation, which is a validated novel method providing better accuracy than the Friedewald equation in the estimation of LDL-C. Tres RODRIGEZ et al. STEPHANIE. 2013;310(19): 3975-3708 (http://education.[employer].Beautylish/faq/IYT087) CHOL/HDLC RATIO3.2<5.0 (calc)[facility] ScreachTV [facility] CenterNON HDL MCJLBSHEWXJ039<130 mg/dL (calc)[facility] Comment: For patients with diabetes plus 1 major ASCVD risk factor, treating to a non-HDL-C goal of <100 mg/dL (LDL-C of <70 mg/dL) is considered a therapeutic option. Specimen (Source)Anatomical Location / LateralityCollection Method / Volume Collection TimeReceived TimeBloodVenous blood specimen / Fiqxgzn8409/12/2024 1:43 PM EST09/12/2024 1:44 PM EST Narrative [employer] [facility] - 09/13/2024 6:42 AM EST FASTING:YES FASTING: YES Authorizing ProviderResult TypeResult StatusSuzanne BRANHAM BLOOD ORDERABLESFinal ResultPerforming OrganizationAddressCity/State/ZIP CodePhone Number [facility] [address] [facility] [place] [address] from Last 3 Months or Most Recently Relevant to Health Maintenance Insurance Care Teams Team MemberRelationshipSpecialtyStart [place] [address] [address] [place] [address] PCP - General08/14/20
[2025-05-19 12:31] LABS: Hematocrit 30.2 % (36.0-48.0); Hemoglobin 10.2 g/dL (12.0-16.0); Immature Granulocytes Abs Auto 0.07 10^3/uL (0.00-0.03); Immature Granulocytes Pct Auto 0.7 % (0.0-0.5); Lymphocytes Absolute Auto 2.2 10^3/uL (1.2-3.8); Mean Corpuscular HGB Conc 33.8 g/dL (29.9-35.2); Mean Corpuscular Hemoglobin 31.8 pg (26.7-34.0); Mean Corpuscular Volume 94.1 fL (81.0-99.0); Platelet Count 229 10^3/uL (150-450); Red Blood Count 3.21 10^6/uL (4.20-5.40); White Blood Count 9.8 10^3/uL (4.0-11.0)
[2025-05-19 13:12] LABS: Glucose 1 Hour 120 mg/dL (<130)
== END 2025-05-19 11:23 | disposition home or self-care (01) ==
LOC: LAB 11:22
PROVIDERS: PCP Family Medicine; Visit Provider Physician Assistant
DX: Z13.1 Encounter for screening for diabetes mellitus (principal)
CPT/HCPCS: 36415; 82950; 85025

== ENCOUNTER 2025-06-12 16:16 | Observation (INO) | payer BC, SELFPAY ==
--- OUTSIDE RECORDS SUMMARY | 2025-05-29 11:40 | XMS_ITS | Encounter Summary ---
Author Organization [facility] Address [address] [place] [address] Care Team Providers Care Technical Support Internship Name Role Phone Suzanne Uriarte MD Primary Care Provider +1- [phone] Reason for Visit * ReasonCommentsRoutine Visit Encounter Details DateTypeDepartmentCare Team (Latest Contact Info)Itnriexivot76/11/2025 11:40 AM ESTRoutine [facility] [address] [place] [address] Willis Chen DO [address] [place], [place] [phone] 28 weeks gestation of ([facility]); Third trimester ([facility]); Hypertension, unspecified type; Seizure ([facility]); Hemoglobin low Social History Tobacco UseTypesPacks/DayYears UsedDateSmoking Tobacco: Never Assessed Estimated Date of IzguzulsPfqntcdhGpe61/02/2026ased on last menstrual period of 11/13/2024Sex and Gender InformationValueDate RecordedSex Assigned at BirthFemale 12/21/2022 8:22 PM EDTLegal RkyWxxvuo81/15/2023 11:40 PM EDTGender Identity Uykddp9212/21/2022 8:22 PM EDTSexual LfemrmitrvdAqdotkmr44/05/2023 8:22 PM EDT documented as of this encounter Last Filed Vital Signs Vital SignReadingTime TakenCommentsBlood Tjkmtyvz811/6005/29/2025 11:37 AM EST Pulse--Temperature--Respiratory Rate--Oxygen Saturation--Inhaled Oxygen Concentration--Mypvns12.8 kg (195 lb 12.8 oz)05/29/2025 11:37 AM ESTHeight--Body Mass Index28.9105 12:00 PM EDTdocumented in this encounter Progress Notes * Cyndi Andrade, MESH WORKER - 05/29/2025 11:40 AM EST Reason for [...] Date Noted Hypertension 01/14/2023 Seizure ([facility]) 07/09/2021 Breech presentation, no version ([facility]) 07/29/2023 Resolved Ambulatory Problems Diagnosis Date Noted [...] nursing note reviewed. Exam conducted with a supervisor instant potato processing present. Vitals: Estimated body mass index is 28.91 kg/m?? as calculated from the following: Height as of 11/16/22: 5' 9 . Weight as of this encounter: 195 lb 12.8 oz. BP: 100/60 Patient's last menstrual period was 11/13/2024. Assessment/Plan ICD-10-CM 1. 28 weeks gestation of ([facility]) Z3A.28 POCT urinalysis dipstick manually resulted 2. Third trimester ([facility]) Z34.93 POCT urinalysis dipstick manually resulted 3. Hypertension, unspecified type I10 4. Seizure ([facility]) R56.9 Return OB: Patient presents today for [...] Plan of Treatment DateTypeDepartmentCare Team (Latest Contact Info)Qerkdjqycre16/26/2025 2:30 PM ESTAncillary Procedure [facility] [address] [place] [address] [place] [address] 06/13/2025 3:00 PM ESTRoutine [facility] [address] [place] [address] Roula Grullon PA [address] [place] [address] NameTypePriorityAssociated DiagnosesOrder ScheduleUS OB follow up transabdominal approachImagingRoutine Hypertension, unspecified type Seizure (HCC) 4 Occurrences starting 05/29/2025 until 09/26/2025documented as of this encounter Goals GoalPatient Goal TypeAssociated ProblemsRecent ProgressPatient-Stated?Author Reminders Care PlanOB RemindersNoOpen Scheduling, Backgrounddocumented as of this encounter Procedures Procedure NamePriorityDate/TimeAssociated DiagnosisCommentsPOCT URINALYSIS PRXOZCPPVynceuq26/11/2025 11:46 AM EST 28 weeks gestation of ([facility]) Third trimester ([facility]) documented in this encounter Results * (ABNORMAL) [...] / LateralityCollection Method / Volume Collection TimeReceived LbxaEbhpj53/11/2025 11:46 AM EST Narrative Authorizing ProviderResult TypeResult StatusCorey April DOPOINT OF CARE TEST ENTER/EDIT ORDERABLESFinal Result documented in this encounter Visit Diagnoses Diagnosis 28 weeks gestation of ([facility]) Third trimester ([facility]) state, incidental Hypertension, unspecified type Seizure (HCC) Other convulsions Hemoglobin low Unspecified anemia documented in this encounter Additional Health Concerns Active ProblemsNoted DateDiagnosed DateOB Qoodzzllk77/29/2023 documented as of this encounter Care Teams Team MemberRelationshipSpecialtyStart [place] [address] [place] [address] PCP - GeneralFamily Medicine01/14/23documented as of this encounter
--- OUTSIDE RECORDS SUMMARY | 2025-06-12 16:21 | XMS_ITS | Encounter Summary ---
Author Organization [facility] Address [address] [facility] [place] [address] Care Team Providers Care Tuberculosis Specialist Name Role Phone Suzanne Uriarte MD Primary Care Provider [phone]- [phone] Encounter Details DateTypeDepartmentCare Team (Latest Contact Info)Bknyydjyozi37/25/2025Travel Social History Tobacco UseTypesPacks/DayYears UsedDateSmoking Tobacco: Never Assessed Estimated Date of QcdjuikcRapujhouWpx15/02/2026ased on last menstrual period of 11/13/2024Sex and Gender InformationValueDate RecordedSex Assigned at BirthFemale 12/21/2022 8:22 PM EDTLegal UwiZvxysf59/15/2023 11:40 PM EDTGender Identity Kwixpx4512/21/2022 8:22 PM EDTSexual RjkgacxqqcuAcogzuxf77/05/2023 8:22 PM EDT documented as of this encounter Plan of Treatment DateTypeDepartmentCare Team (Latest Contact Info)Mcgdoabjimr14/26/2025 2:30 PM ESTAncillary Procedure JOSY LAYTON [address] [place] [phone] 06/13/2025 3:00 PM ESTRoutine JOSY LAYTON [address] [place] [address] Roula Grullon PA [address] [place], [facility]11 documented as of this encounter Goals GoalPatient Goal TypeAssociated ProblemsRecent ProgressPatient-Stated?Author Reminders Care PlanOB RemindersNoOpen Scheduling, Backgrounddocumented as of this encounter Visit Diagnoses Not on filedocumented in this encounter Additional Health Concerns Active ProblemsNoted DateDiagnosed DateOB Htvzdzenl29/29/2023 documented as of this encounter Care Teams Team MemberRelationshipSpecialtyStart [place] [address] [place], [place] [id number] PCP - GeneralFamily Medicine01/14/23documented as of this encounter
--- OUTSIDE RECORDS SUMMARY | 2025-06-12 16:21 | XMS_ITS | Encounter Summary ---
Author Organization [facility] Address [address] [facility] [place] [address] Care Team Providers Care Pan Devulcanizer Helper Name Role Phone Suzanne Uriarte MD Primary Care Provider +1- [phone] Encounter Details DateTypeDepartmentCare Team (Latest Contact Info)Jdflfejhsme31/25/2025Telephone JOSY [facility] OBGYN [address] [place] [address] Willis Chen, [address] [facility] [address] [place] [address] Social History Tobacco UseTypesPacks/DayYears UsedDateSmoking Tobacco: Never Assessed Estimated Date of LwqndsqaLwlowttdNan04/02/2026ased on last menstrual period of 11/13/2024Sex and Gender InformationValueDate RecordedSex Assigned at BirthFemale 12/21/2022 8:22 PM EDTLegal GvfGumiei16/15/2023 11:40 PM EDTGender Identity Grjuxt8412/21/2022 8:22 PM EDTSexual DsbmeptkggcXouaqnnp83/05/2023 8:22 PM EDT documented as of this encounter Miscellaneous Notes * Telephone Encounter - Lynette Engel LPN - 06/12/2025 2:15 PM EST I just wanted to call I do have an appointment tomorrow with an ultrasound, but I have been having since last night a lot of pain and like my sternum and upper abdomen, it feels like like a pulling pain and it is constant. It is not really feeling like contractions. But I just wanted to make sure if that was something to be worried about or not. Thanks. Patient call was returned and she was advised that we would have her get checked out especially with the sternum pain she is having and very hard to describe and right under bra line is a pulling feeling. Patient states kind of feels like heartburn but then goes away. Patient was advised we recommend being evaluated and she states even if not heart, she was advised with symptoms she is having we can not rule that out an ultrasound here would not help and we do not have that equipment to access and see what is going on like hospital. Patient was advised of out recommendations and to keep her appointment in office tomorrow. PVU documented in this encounter Plan of Treatment DateTypeDepartmentCare Team (Latest Contact Info)Ktyehydsjeb47/26/2025 2:30 PM ESTAncillary Procedure [facility] Zachariah LAYTON [address] [place] [place] [address] 06/13/2025 3:00 PM ESTRoutine [facility] Zachariah LAYTON [address] [place] [place] [address] Roula Grullon PA [address] [facility] [address] [place], [place] [address] documented as of this encounter Goals GoalPatient Goal TypeAssociated ProblemsRecent ProgressPatient-Stated?Author Reminders Care PlanOB RemindersNoOpen Scheduling, Backgrounddocumented as of this encounter Visit Diagnoses Not on filedocumented in this encounter Additional Health Concerns Active ProblemsNoted DateDiagnosed DateOB Oqemocdms83/29/2023 documented as of this encounter Care Teams Team MemberRelationshipSpecialtyStart [place] [address] [address] [address] PCP - GeneralFamily Medicine01/14/23documented as of this encounter
--- OUTSIDE RECORDS SUMMARY | 2025-06-12 16:21 | XMS_ITS | Clinical Summary ---
Author Organization [facility] Address [address] [place] [address] Care Team Providers Care Delivery Professional Name Role Phone Koffi Uriarte MD Primary Care Provider +1- [phone] Allergies No known active allergies Medications MedicationSigDispense [...] tablet (200 mg) before bedtime. 60 tablet 5Active iron polysaccharides (ProFe) 391.3 (180 Fe) MG capsule Indications:Hemoglobin lowTake 1 capsule (391.3 mg) by mouth Daily 30 capsule 61515Active Active Problems ProblemNoted DateDiagnosed DateBreech presentation, no version ([facility]) 07/29/20231743Mwkcjhbmsicb16/29/5705Gntewgf86/22/2021Estimated Date of ZaaspqzgPpvahjsaBii37/02/2026ased on last menstrual period of 11/13/2024 Encounters DateTypeDepartmentCare TekbBdysvgtmyod61/25/8205Rngwwj70/25/2025Telephone [facility] [place] [address] Lisa Chen, 05/29/2025 11:40 AM ESTRoutine [facility] [place] [address] Lisa Chen, 28 weeks gestation of ([facility]); Third trimester ([facility]); Hypertension, unspecified type; Seizure (HCC); Hemoglobin low05/29/2025amboo flowsheet [facility] [place] Contreras [facility] [place] [address] Lisa Chen DO 05/22/20258654Esikqk24/01/2025Clinisync Result Encounter [facility]OMS External Department Unsolicited Roula Grullon PA 04/30/2025 9:50 AM EDTRoutine [facility] [place] [facility]re[facility] [place] [address] Roula Grullon PA Second trimester ([facility]); 24 weeks gestation of ([facility]); Hypertension, unspecified type; Seizure (HCC); Diabetes mellitus dqfyahayo64/13/2025amboo flowsheet [facility] [place] [address] Roula Grullon PA 04/29/20256728Tnimea86/01/2025Refill [facility] [place] Contre[facility] [place] [address] Lisa Chen, DO Secondary /20/2025linisync Result Encounter NOMS External Department Unsolicited Roula Grullon PA 04/04/2025 3:10 PM EDTRoutine [facility] [place] [address] Lisa Chen, DO 20 weeks gestation of ([facility]); Second trimester ([facility])04/04/2025linisync Result Encounter NOMS External Department Unsolicited Lisa Chen, 5Clinisync Result Encounter NOMS External Department Unsolicited Lisa Chen, DO 03/28/20257500Qvcbzx46/05/2025Orders Only [facility] [place] LAYTON [address] [place] [address] [place] [address] Damaris Agosto MA 03/16/2025bstract [facility] [place] LAYTON [address] [facility] [place] [address] Lisa Chen, DO 03/14/2025 3:00 PM EDTAncillary Procedure [facility] [place] LAYTON [address] [place] [address] Amniotic band in second trimester, single or unspecified fetus ([facility]) 03/13/2025Travelfrom Last 3 Months Social History Tobacco UseTypesPacks/DayYears UsedDateSmoking Tobacco: Never Assessed Estimated Date of DgwlspxxQetdpzpyVfb99/02/2026ased on last menstrual period of 11/13/2024Sex and Gender InformationValueDate RecordedSex Assigned at BirthFemale 12/21/2022 8:22 PM EDTLegal IxkNtznsk64/15/2023 11:40 PM EDTGender Identity Dukwds8912/21/2022 8:22 PM EDTSexual QekdaksftpvSwygbrkd83/05/2023 8:22 PM EDT Last Filed Vital Signs Vital SignReadingTime TakenCommentsBlood Fbbuwgjs958/6005/29/2025 11:37 AM EST Pulse--Temperature--Respiratory Rate--Oxygen Saturation--Inhaled Oxygen Concentration--Fdbbym69.8 kg (195 lb 12.8 oz)05/29/2025 11:37 AM UIZItkmrt755.3 cm (5' 9 )11/16/2022 12:00 PM EDTBody Mass Index28.9111/16/2022 12:00 PM EDT Plan of Treatment DateTypeDepartmentCare Team (Latest Contact Info)Hvfzmgqldvc58/26/2025 2:30 PM ESTAncillary Procedure [facility] [place] LAYTON [address] [place] [address] 06/13/2025 3:00 PM ESTRoutine [facility] [place] LAYTON [address] [place] [address] Roula Grullon PA [address] [place] [address] Health MaintenanceDue DateLast DoneCommentsHPV/Qoujtx734COVID-19 Vaccine ( season)507/, 01/08/2021Influenza Vaccine (#1) /11/2022, 04/21/2022, 04/18/2021, Additional history existsCervical Cancer Ntanvpqcd03/20/2028Pap Smear, 3Pneumococcal Vaccine: Pediatrics (0 to 5 Years) and At-Risk Patients (6 to 64 Years)Aged Out No longer eligible based on patient's age to complete this topic Goals GoalPatient Goal TypeAssociated ProblemsRecent ProgressPatient-Stated?Author Reminders Care PlanOB RemindersNoOpen Scheduling, Background Procedures Procedure NamePriorityDate/TimeAssociated DiagnosisCommentsPOCT URINALYSIS OOOWNGCIVrzumlb75/11/2025 11:46 AM EST 28 weeks gestation of ([facility]) Third trimester ([facility]) GLUCOSE 1 RHEEBbzjaxl94/01/2025 12:28 PM EDT ALL CBC WITH AUTO DKYUGkfbphc01/01/2025 12:28 PM EDT POCT URINALYSIS DQGXGXMRRfaspof49/13/2025 10:14 AM EDT Second trimester ([facility]) AFP, SERUM, OPEN SPINA GZQIJXTkewodo09/20/2025 10:31 AM EDT POCT URINALYSIS TVSUDCLAMegawxk65/17/2025 3:20 PM EDT 20 weeks gestation of ([facility]) Second trimester ([facility]) US OB OZXKZEM9504/04/2025 9:12 AM EDT US OB CERVICAL CQCFET8404/04/2025 9:12 AM EDT US OB LIMITED 1+ QUSUGMFDagwvxg15/27/2025 3:22 PM EDT Amniotic band in second trimester, single or unspecified fetus ([facility]) PAP EHUZFEzdnunz62/20/2025 12:00 AM EDTfrom Last 3 Months or Most Recently Relevant to Health Maintenance Results * (ABNORMAL) POCT urinalysis dipstick manually resulted (05/29/2025 11:46 AM EST) Only the most recent of3 resultswithin the time period is included. ComponentValueRef RangeTest MethodAnalysis TimePerformed AtPathologist Signature Color, UAYellowClarity, UAClearGlucose, UANegativeNegative - 2000(110) ++++ mg/dLBilirubin, UANegativeNegative - 4(70) +++ mg/dLKetones, UANegativeNegative - 160(16) ++++ mg/dLSpec Grav, UA1.0151 - 1.03Blood, UANegativeNegative - 50 Jea/mcLpH, UA6.55 - 9Protein, UAPositiveNegative - 2000(20) ++++ mg/dL Urobilinogen, UA1.00.2 - 12 mg/dLLeukocytes, UAPositiveNegative - 500+++ Marsha/mcL Comment:3+Nitrite, UANegativeNegative - PositiveSpecimen (Source)Anatomical Location / LateralityCollection Method / VolumeCollection TimeReceived TimeUrine 05/29/2025 11:46 AM EST Narrative Authorizing ProviderResult TypeResult StatusCorey April DOPOINT OF CARE TEST ENTER/EDIT ORDERABLESFinal Result * GLUCOSE 1 HOUR (05/19/2025 12:28 PM EDT)ComponentValueRef RangeTest Method Analysis TimePerformed AtPathologist SignatureGLUCOSE 1 IBMK283<130 mg/dLTBH Specimen (Source)Anatomical Location / LateralityCollection Method / Volume Collection TimeReceived Time05/19/2025 12:28 PM EDT107/19/2024 12:29 PM EDT Narrative CLINISYNC - 05/19/2025 1:15 PM EDT Authorizing ProviderResult TypeResult StatusAmy [place] PAL BLOOD ORDERABLES Final ResultPerforming OrganizationAddressCity/State/ZIP CodePhone Number CLINANGELANC TB * (ABNORMAL) ALL CBC WITH AUTO DIFF (05/19/2025 12:28 PM EDT)ComponentValueRef RangeTest MethodAnalysis TimePerformed AtPathologist SignatureTBH WBC9.84.0 - 11.0 10 3/uLTBHTBH RBC3.21(L)4.20 - 5.40 10 6/uLTBHTBH HGB10.2(L)12.0 - 16.0 g/dLTBHTBH HCT30.2(L)36.0 - 48.0 %TBHTBH MCV94.181.0 - 99.0 fLTBHTBH MCH31.8 26.7 - 34.0 pgTBHTBH MCHC33.829.9 - 35.2 g/dLTBHTBH RDW12.311.0 - 15.0 %TBHTBH QWR958518 - 450 10 3/uLTBHTBH MPV8.9(L)9.5 - 13.5 fLTBHNEUTROPHILS PERCENT AUTO71.143.0 - 75.0 %TBHLYMPHOCYTES PERCENT AUTO22.120.5 - 60.0 %TBHMONOCYTES PERCENT AUTO5.91.7 - 12.0 %TBHTBH EO %0.1(L)0.9 - 7.0 %TBHBASOPHILS PERCENT AUTO0.1(L)0.2 - 2.0 %TBHIMMATURE GRANULOCYTES PCT AUTO0.7(H)0.0 - 0.5 %TBH NEUTROPHILS ABSOLUTE AUTO6.9(H)1.4 - 6.5 10 3/uLTBHLYMPHOCYTES ABSOLUTE AUTO 2.21.2 - 3.8 10 3/uLTBHMONOCYTES ABSOLUTE AUTO0.60.3 - 0.8 10 3/uLTBHTBH EO # 0.00.0 - 0.7 10 3/uLTBHBASOPHILS ABSOLUTE AUTO0.00.0 - 0.1 10 3/uLTBHIMMATURE GRANULOCYTES ABS AUTO0.07(H)0.00 - 0.03 10 3/uLTBHSpecimen (Source)Anatomical Location / LateralityCollection Method / VolumeCollection TimeReceived Time 05/19/2025 12:28 PM EDT107/19/2024 12:29 PM EDT Narrative CLINISYNC - 05/19/2025 12:34 PM EDT Authorizing ProviderResult TypeResult StatusAmy [place] PACLINISYNCFinal Result Performing OrganizationAddressCity/State/ZIP CodePhone Number [facility] * AFP, SERUM, OPEN SPINA BIFIDA (04/07/2025 10:31 AM EDT)ComponentValueRef Range Test MethodAnalysis TimePerformed AtPathologist SignatureRESULTSReport.TBHTEST RESULTS:*Screen Negative*.TBHGEST. AGE ON COLLECTION DATE20.7. weeksTBHGESTAT. AGE BASED ONLMP.TBHComment: Recalculations are not recommended when gestational dating by LMP and ultrasound are within 10 days. MATERNAL AGE AT EDD31.8. yrTBHRACECaucasian.IENTTWQUE828. lbsTBHINSULIN DEP DIABETESNo.TBHMULTIPLE GESTATIONNo.TBHAFP VALUE45.0. ng/mLTBHAFP MOM0.82.TBHOSBR RISK 1 [id number].TBHINTERPRETATIONComment.TBHComment: Interpretation: Screen Negative This result is screen [...] Customer Services to discuss available options. ??The [employer] recommends amniocentesis be offered to women age 35 and older. COMMENT:Comment.TBHComment: Jeny Avila, Ph.D., [facility] Director References: Available Upon Request. Multiples Of Median Cutoffs ?For AFP Elevations Becerra ?? 2.5 ? Black ?2.8 IDD ? 2.0 ? Twins ?4.5 ?Abbreviation Definitions IDD - Insulin Dep Diabetes OSBR - Open Spina Bifida Risk For further inquiries contact [employer] at [phone]. This test was developed and its performance characteristics determined by [employer]. It has not been cleared or approved by the Food and Drug Administration. Performed at: ??[facility] [address] [place], [place] ??[id number] Radial Router Operator: Abdulaziz Aquino [facility], Phone: ??[phone] Specimen (Source)Anatomical Location / LateralityCollection Method / Volume Collection TimeReceived Time04/07/2025 10:31 AM EDT04/07/2025 10:35 AM EDT Narrative CLINISYNC - 04/09/2025 6:08 PM EDT N N LMP [id number] 2 16 N 1 Y 183 N N N N N White/ Authorizing ProviderResult TypeResult StatusAmy [facility] BLOOD ORDERABLES Final ResultPerforming OrganizationAddressCity/State/ZIP CodePhone Number [facility] * OB CERVICAL LENGTH (04/04/2025 9:12 AM EDT)Anatomical RegionLaterality ModalityOtherSpecimen (Source)Anatomical Location / LateralityCollection Method / VolumeCollection TimeReceived Time04/04/2025 9:12 AM EDT Narrative 04/04/2025 9:14 AM EDT [facility] ?[address] ? [place] [address] ? Ultrasound Report ? Signed ? Patient: HUNTER,PRINCESS A ?MR#: [id number] ?? : 1995 ?Acct:[id number] ?? Age/Sex: 29 / F ?ADM Date: 09/16/25 ?? Loc: US ? Attending Dr: Lisa Chen D.O. ? Ordering Physician: Lisa Chen D.O. ?? Date of Service: 04/03/25 ?? Procedure(s): US OB cervical length ?? Accession Number(s): [id number] ? cc: Lisa Chen D.O.; KOFFI URIARTE M.D. ? [facility] ? [address] ? [place] [address] ? Patient Name: ?? PRINCESS HUNTER ? MRN: [facility]:[id number] ? date: 1995 ?Sex: F ?? Assigned Patient Location: US ?? Current Patient Location: ? Accession/Order Number: [id number] ?? Exam Date: 04/03/2025 ??18:53 ?Report Date: [...] ?? 4 extremities were surveyed by the metal trimmer and no abnormalities were ?? reported. ??The [...] based on the prior. ? US/US OB cervical length ?? IMPRESSION: ? SINGLE [...] M.D. ??04/04/2025 9:12 AM ? Dictation Location: [facility]- ? Electronically authenticated by: [id number] ??Y ?? Date: 04/04/2025 ??09:12 ? Dictated By: ?Cyndi Pisano M.D. ? Signed By: ?04/04/25 0914 ? DD/ 0912 ? TD/TT: ? Stone Banker: Procedure Note Radiology, Radiologist, - 04/04/2025 [place] [address] Ultrasound Report Signed Patient: PRINCESS HUNTER AMR#: [id number] : 1995Acct:[id number] Age/Sex: 29 / FADM Date: 04/03/25 Loc: US Attending Dr: Lisa Chen D.O. Ordering Physician: Lisa Chen D.O. Date of Service: 04/03/25 Procedure(s): US OB cervical length Accession Number(s): [id number] cc: Lisa Chen D.O.; KOFFI URIARTE M.D. The [address] [address] Patient Name: PRINCESS HUNTER MRN: [facility]:[id number] date: 1995 Sex: F Assigned Patient Location: Current Patient Location: Accession/Order Number: [id number] Exam Date: 04/03/2025 18:53 Report Date: 04/04/2025 [...] andall 4 extremities were surveyed by the metal trimmer and no abnormalities were reported. The stomach, [...] Pisano M.D. 04/04/2025 9:12 AM Dictation Location: [place] [address] Electronically authenticated by: [id number] Y Date: 9:12 Dictated By: Cyndi Pisano M.D. Signed By:04/04/25913 DD/ 1 TD/TT: Stone Banker: Authorizing ProviderResult TypeResult StatusCorechristina Chen DOCLINISYNC IMAGINGFinal Result * US OB ANATOMY (04/04/2025 9:12 AM EDT)Anatomical RegionLateralityModalityOther Specimen (Source)Anatomical Location / LateralityCollection Method / Volume Collection TimeReceived Time04/04/2025 9:12 AM EDT Narrative 04/04/2025 9:14 AM EDT [facility] ?[address] ? [place] [address] ? Ultrasound Report ? Signed ? Patient: HUNTERPRINCESS ?MR#: [id number] ?? : 1995 ?Acct:[id number] ?? Age/Sex: 29 / F ?ADM Date: 04/03/25 ?? Loc: US ? Attending Dr: Lisa Chen D.O. ? Ordering Physician: Lisa Chen D.O. ?? Date of Service: 04/03/25 ?? Procedure(s): US OB anatomy ?? Accession Number(s): [id number] ? cc: Lisa Chen D.O.; KOFFI URIARTE M.D. ? [facility] ? [address] [facility] ? [place] [address] ? Patient Name: ?? PRINCESS HUNTER ? MRN: [facility]:[id number] ? date: 1995 ?Sex: F ?? Assigned Patient Location: ?? Current Patient Location: ? Accession/Order Number: [id number] ?? Exam Date: 04/03/2025 ??18:53 ?Report Date: [...] ?? 4 extremities were surveyed by the metal trimmer and no abnormalities were ?? reported. ??The [...] based on the prior. ? / OB anatomy ?? IMPRESSION: ? SINGLE LIVE [...] M.D. ??04/04/2025 9:12 AM ? Dictation Location: [facility]- ? Electronically authenticated by: [id number] ??Y ?? Date: 04/04/2025 ??09:12 ? Dictated By: ?Cyndi Pisano M.D. ? Signed By: ?04/04/25 0914 ? DD/ 0912 ? TD/TT: ? Stone Banker: Procedure Note Radiology, Radiologist, MD - 04/04/[address] [address] Ultrasound Report Signed Patient: PRINCESS HUNTER AMR#: [id number] : 1995Acct:[id number] Age/Sex: 29 / FADM Date: 04/03/25 Loc: US Attending Dr: Lisa Chen D.O. Ordering Physician: Lisa Chen D.O. Date of Service: 04/03/25 Procedure(s): US OB anatomy Accession Number(s): [id number] cc: Lisa Chen D.O.; KOFFI URIARTE M.D. [address] [address] Patient Name: PRINCESS HUNTER MRN: [facility]:[id number] date: 1995 Sex: F Assigned Patient Location: Current Patient Location: Accession/Order Number: [id number] Exam Date: 04/03/2025 18:53 Report Date: 04/04/2025 [...] andall 4 extremities were surveyed by the metal trimmer and no abnormalities were reported. The stomach, [...] Pisano M.D. 04/04/2025 9:12 AM Dictation Location: [place] [address] Electronically authenticated by: [id number] Y Date: 509:12 Dictated By: Cyndi Pisano M.D. Signed By:04/04/25913 DD/ 1 TD/TT: Stone Banker: Authorizing ProviderResult TypeResult StatusCorey April DOCLINISYNC IMAGINGFinal [...] Eid MD Authorizing ProviderResult TypeResult StatusCorey April [facility] OB US PROCEDURES Final Result * Pap Smear (03/07/2025 12:00 AM EDT)Specimen (Source)Anatomical Location / LateralityCollection Method / VolumeCollection TimeReceived TimeSwabCervical swab / Unknown Narrative Authorizing ProviderResult TypeResult StatusAmy [place] PALAB CYTOLOGY ORDERABLES Final ResultPerforming OrganizationAddressCity/State/ZIP CodePhone Number EXTERNAL LAB from Last 3 Months or Most Recently Relevant to Health Maintenance Additional Health Concerns Active ProblemsNoted DateDiagnosed DateOB Rnzacdidr16/29/2023 Insurance Care Teams Team MemberRelationshipSpecialtyStart [place] [address] [place] [address] PCP - GeneralFamily Medicine01/14/23
--- OUTSIDE RECORDS SUMMARY | 2025-06-12 16:21 | XMS_ITS | Clinical Summary ---
Author Organization [facility] Address [address] [place] [address] Phone Care Team Providers Care Chocolatier Name Role Phone Suzanne Uriarte MD Primary Care Provider + Allergies No known active allergies Medications MedicationSigDispense QuantityRefillsLast FilledStart DateEnd DateStatus labetalol (Normodyne) 300 mg tablet Indications:Benign essential hypertensionTAKE 1 TABLET (300 MG) BY MOUTH 2 TIMES A DAY. 60 tablet 5Active lamoTRIgine (LaMICtal) 100 mg tablet Indications:Unspecified convulsions (Multi)Take 1 tablet (100 mg) by mouth 2 times a day. 180 tablet [id number] lamoTRIgine (LaMICtal) 100 mg tablet Indications:Unspecified convulsions (Multi)TAKE 1 TABLET BY MOUTH TWICE A DAY 60 tablet [id number](Reorder) Active Problems ProblemNoted DateDiagnosed KvblDgookox12/25/2025 Assessment & Plan (09/14/2024 1:31 PM EST): We talked about healthy habits and sleep hygiene Orders: CBC; Future TSH with reflex to Free T4 if abnormal; Future Vitamin B12; Future Zvldkyx2710/02/2022enign essential oyhudzeiftja20/17/2023 Assessment & Plan (09/14/2024 1:31 PM EST): [...] Primary Care - PCP - Established; Future Tvbnthp8010/02/2022 Assessment & Plan (09/14/2024 1:31 PM EST): Good control. Follow up with neuro. Continue meds Vitamin B12 wozeugabpr74/17/2023 Assessment & Plan (09/14/2024 1:31 PM EST): Resolved Problems ProblemNoted DateDiagnosed DateResolved DateClass 1 obesity with body mass index (BMI) of 32.0 to 32.9 in adult/6500Gitbjkciebru37/29/2023 09/12/2024bnormal weight gain/llergic /17/2023 05/03/2024acterial dwonmzcfd85ilateral chronic otitis media hest painhronic uzqdkhrnsmya18/17/2023 05/03/2024hronic baaolesxe34onductive hearing loss, usplwisja38/Elevated BP without diagnosis of hypertension /Globus cxnizmgfq62/Hair loss10/02/2022 05/03/20248709Orubzkji78Tonsil stoneVaginal jgrokgrss24 Encounters DateTypeDepartmentCare QviiGoypezbtmnr10/27/2025Orders Only [place] [address] [facility] [address] [address] Nedra Deleon MD Unspecified convulsions (Multi)04/18/2025Telephone [facility] [address] [place] [address] Alfredo KimBAYRON 04/17/2025Refill [facility] [address] [place] [address] Suzanne Uriarte MD Benign essential iptesujroocy56/23/2025Scanned Document [facility] [address] [place] [address] Suzanne Uriarte MD 03/21/2025Refill [facility] [address] [place] [address] Suzanne Uriarte MD Benign essential hypertensionfrom Last 3 Months Immunizations ImmunizationAdministration DatesNext QbcRGT5104/16/1994,02/12/1994,1993DTaP, Uaslbjapuat38/25/1999,01/07/1995Flu vaccine (IIV4), preservative free *Check age/dose*04/22/2023,04/21/2022,04/18/2021,05/06/2017Flu vaccine, quadrivalent, no egg protein, age 6 month or greater (FLUCELVAX)05/09/2019Hepatitis B vaccine, 19 yrs and under (RECOMBIVAX, ENGERIX)06/18/1994,01/08/1994,1993Hepatitis B vaccine, adult *Check Product/Dose*11/01/2023HiB PRP-OMP conjugate vaccine, pediatric (PEDVAXHIB)10/22/1994,04/16/1994,02/12/1994,1993Hib (HbOC) 03/12/1999Influenza, injectable, yrjcxfamawys81/11/2018MMR vaccine, subcutaneous (MMR II)03/12/1999,10/22/1994Meningococcal ACWY-D (Menactra) 4-valent conjugate gnrkbro7902/25/2007OPV03/12/1999,04/16/1994,02/12/1994,1993PPD Test 11/30/2014,12/15/2013Pneumococcal polysaccharide vaccine, 23-valent, age 2 [...] on one occasion?Never05/03/2024HQ-2 AnswerDate RecordedPatient Health Questionnaire-2 Epeun881/16/2024 CommentsNoSex and Gender InformationValueDate RecordedSex Assigned at BirthNot on fileLegal UpnYfdfhl99/25/2022 10:33 PM ESTGender IdentityNot on fileSexual OrientationNot on file Last Filed Vital Signs Vital SignReadingTime TakenCommentsBlood Qgemcdqw522/9609/12/2024 12:28 PM EST Cymck971709/12/2024 12:28 PM QTMOhcrvgpyusz86.3 ??C (97.3 ??F)09/12/2024 12:28 PM ESTRespiratory Qeiw604507/31/2022 10:54 AM ESTOxygen Cyajbzlais010%12/24/2021 11:32 AM EDTInhaled Oxygen Concentration--Bwaeys58.1 kg (183 lb 4 oz)09/12/2024 12:28 PM MMOJzscup659.3 cm (5' 9 )09/12/2024 12:28 PM ESTBody Mass Index27.06 09/12/2024 12:28 PM EST Plan of Treatment Health MaintenanceDue DateLast DoneCommentsHIV Cosqdsqgz01/16/1994Hepatitis C Joflouvwk05/16/2012HPV/Raylxe3510/01/2014HPV Vaccines (1 - 3-dose standard series) 2020Yearly Adult Bbiesnul02, 07/31/2022, 07/31/2022, Additional history existsInfluenza Vaccine (#1)/11/2022, 04/21/2022, 04/18/2021, Additional history existsCOVID-19 Vaccine (2 - season) /ervical Cancer Qyqkpsrnj91/20/2028Pap Smear03/07/2028 03/07/2025, 03/10/2023, 03/09/2023, Additional history existsLipid Panel DTaP/Tdap/Td Vaccines (9 - Td or Tdap), 02/16/2018, 03/02/2008, Additional history existsZoster Vaccines (1 of 2) 10/02/2043HIB KebxccrfWogojyxkv38/25/1999, 10/22/1994, 04/16/1994, Additional history existsIPV NcpnnbwnPpuaozuze75/25/1999, 10/22/1994, 04/16/1994, Additional history existsMMR FvcuuvlrDxaxjawan39/25/1999, 10/22/1994 Meningococcal VaccineAged Out02/25/2007No longer eligible based on patient's age to complete this topicPneumococcal Vaccine: Pediatrics and At-Risk Adult PatientsAged Out01/14/2016No longer eligible based on patient's age to complete this topicHepatitis B HegfmugrErckwhzvt02/15/2024, 06/18/1994, 01/08/1994, Additional history existsHepatitis A VaccinesAged [...] PM EST)ComponentValueRef RangeTest MethodAnalysis TimePerformed AtPathologist SignatureCHOLESTEROL, BQAXS834<200 mg/dLQuest Heritage Valley Health SystemHDL FXZFFVBUVHT93> OR = 50 mg/dLQuest [facility] Health SystemTRIGLYCERIDES103<150 mg/dLQuest [facility] Health SystemAkxtpglstjfs-HrwezvsnfvKCY-WFYUMSVFHPV02vu/dL (calc)[facility] HospitalComment: Reference range: <100 Desirable range <100 mg/dL for primary prevention; <70 mg/dL for patients with CHD or diabetic patients with > or = 2 CHD risk factors. LDL-C is now calculated using the Tres-Edmund calculation, which is a validated novel method providing better accuracy than the Friedewald equation in the estimation of LDL-C. Tres RODRIGEZ et al. STEPHANIE. 2013;310(19): 4616-3107 (http://education.Medigus.Sprout Route/faq/PRG170) CHOL/HDLC RATIO3.2<5.0 (calc)[facility] HospitalNON HDL XNZJZVZGRIZ396<130 mg/dL (calc)[facility] Comment: For patients with diabetes plus 1 major ASCVD risk factor, treating to a non-HDL-C goal of <100 mg/dL (LDL-C of <70 mg/dL) is considered a therapeutic option. Specimen (Source)Anatomical Location / LateralityCollection Method / Volume Collection TimeReceived TimeBloodVenous blood specimen / Ueotfnk8009/12/2024 1:43 PM EST09/12/2024 1:44 PM EST Narrative [facility] - 09/13/2024 6:42 AM EST FASTING:YES FASTING: YES Authorizing ProviderResult TypeResult StatusSuzanne Uriarte MDLAB BLOOD ORDERABLESFinal ResultPerforming OrganizationAddressCity/State/ZIP CodePhone Number [facility] [address] [facility], [address] [place] [address] from Last 3 Months or Most Recently Relevant to Health Maintenance Insurance Care Teams Team MemberRelationshipSpecialtyStart [place] [address] [place] [address] [facility]08/14/20
--- OUTSIDE RECORDS SUMMARY | 2025-06-12 16:21 | XMS_ITS | Encounter Summary ---
Author Organization [facility] Address [address] [facility] [place] [address] Care Team Providers Care Building Appraiser Name Role Phone Suzanne Uriarte MD Primary Care Provider [phone]- [phone] Encounter Details DateTypeDepartmentCare Team (Latest Contact Info)Scufhonqotp80/11/2025amboo flowsheet [facility] [address] [place] [address] Willis Chen DO [address] [facility] [address] Clary Desai, [facility] Social History Tobacco UseTypesPacks/DayYears UsedDateSmoking Tobacco: Never Assessed Estimated Date of NrhnganeGbfpikjeYcv68/02/2026ased on last menstrual period of 11/13/2024Sex and Gender InformationValueDate RecordedSex Assigned at BirthFemale 12/21/2022 8:22 PM EDTLegal RnyXzyrrj51/15/2023 11:40 PM EDTGender Identity Komwoj0212/21/2022 8:22 PM EDTSexual DnxurxhwbbrPcesvxzc67/05/2023 8:22 PM EDT documented as of this encounter Plan of Treatment DateTypeDepartmentCare Team (Latest Contact Info)Mndwinuyebq26/26/2025 2:30 PM ESTAncillary Procedure [facility] [address] [place] [address] 06/13/2025 3:00 PM ESTRoutine [facility] [address] [place] [address] Roula Grullon PA [address] [facility] [address] [place] [address] documented as of this encounter Goals GoalPatient Goal TypeAssociated ProblemsRecent ProgressPatient-Stated?Author Reminders Care PlanOB RemindersNoOpen Scheduling, Backgrounddocumented as of this encounter Visit Diagnoses Not on filedocumented in this encounter Additional Health Concerns Active ProblemsNoted DateDiagnosed DateOB Wgqdtrohx03/29/2023 documented as of this encounter Care Teams Team MemberRelationshipSpecialtyStart [place] [address] [place] [address] PCP - GeneralFamily Medicine01/14/23documented as of this encounter
--- OUTSIDE RECORDS SUMMARY | 2025-06-12 16:27 | XMS_ITS | CCD ---
Author Organization [facility] Care Team Providers Care [employer] Package Symbol Stamper Name Role Phone Uriarte, Koffi A Unavailable [...] Attending Unavailable MILAGRO HUGHES Primary Care Unavailable Chapito REINOSO, Koffi Rosas Primary Care Provider Koffi Uriarte MD Primary Care Provider [phone] NEDRA CALDERON Attending Unavailable KOFFI URIARTE Primary Care UnavailKOFFI Aguilera Attending UnavailKOFFI Aguilera Primary Care Unavailmary Uriarte MD, Koffi Primary Care Provider ROULA GRULLON Attending Unavailable WILLIS CHEN Attending Unavailable WILLIS CHEN Referring Unavailable ROULA GRULLON Attending Unavailable WILLIS CHEN Attending Unavailable ROULA GRULLON Attending Unavailable WILLIS CHEN Attending Unavailable Allergies Allergy ClassificationReported Allergen(s)Allergy TypeDate of OnsetReaction(s) Facility (2 sources)No Known Medication Allergies; Translations: [No Known Medication Allergies]Propensity to adverse reactions (disorder)[facility] Repository Medications Current Medications MedicationDrug Class(es)DatesSig (Normalized)Sig (Original)docusate sodium 50 mg oral capsule (20 sources)take 1 capsule by mouth in the morningdocusate sodium (Colace) 50 MG capsule Take 50 mg by mouth in the morning and 50 mg before bedtime.Active{21 (Ethinyl Estradiol 0.02 MG / Levonorgestrel 0.1 MG Oral Tablet) / 7 (Inert Ingredients 1 MG Oral Tablet) } Pack [Orsythia 28 Day] (9 sources)Progestin, Estrogen, Progestin-containing Intrauterine DeviceStart: 36-11-0767Eprnwpsh 100 mcg-20 mcg oral tablet 1 tab(s), Oral, Daily, 3 EA, Refill(s) [facility] #0220 Start Date: 06/05/19 Status: OrderedStart: 62-71-2567xkme 1 tablet by mouth once dailyOrsythia 0.1-20 MG-MCG Oral Tablet TAKE 1 TABLET DAILY. Quantity: 1 Refills: 3 Koffi Uriarte MD Start : 12-Oct-2015 Active 28 Tablet Packtake 0.1-20 tablets by mouth once levonorgestrel-ethinyl estradiol (LUTERA) 0.1-20 MG-MCG per tablet Take 1 tablet by mouth daily. 0 Activelabetalol hydrochloride 200 mg oral tablet (20 sources)beta-Adrenergic BlockerStart: 23-70-7526rink 1 tablet by mouth in the morninglabetalol (Normodyne) 200 MG tablet Indications: Secondary hypertension Take 1 tablet (200 mg) by mouth in the morning and 1 tablet (200 mg) before bedtime. 60 tablet 3 04/18/2025 ActiveStart: 09-12-2024 End: 02-26-2014xqeb 1 tablet by mouth twice dailylabetalol (Normodyne) 300 mg tablet Indications: Benign essential hypertension Take 1 tablet (300 mg) by mouth 2 times a day. 60 tablet 5 09/12/2024 03/11/2025 ActiveStart: 11-09-2023 End: 48-01-0025sspz 1 tablet by mouth twice dailylabetalol (Normodyne) 200 MG tablet Indications: Secondary hypertension TAKE 1 TABLET BY MOUTH TWICE A DAY 60 tablet 3 09/06/2024 ActivelamoTRIgine 100 mg oral tablet (20 sources)Mood Stabilizer, Anti-epileptic AgentStart: 93-84-4781xayl 100 mg by mouth once dailyLamotrigine Active 100 MG PO Daily November 09, 2023 12:00am Start: 38-10-1023atyj 1 tablet by mouth twice dailylamoTRIgine (LaMICtal) 100 mg tablet Indications: Unspecified convulsions (Multi) TAKE 1 TABLET BY MOUTH TWICE A DAY 60 tablet 11 01/03/2024 ActivelamoTRIgine (LAMICTAL) 25 mg tablet levothyroxine sodium 0.025 mg oral tablet (1 source)l-ThyroxineStart: 12-07-2022 End: 94-27-8282heqn 1 tablet by mouth once daily before mealtimelevothyroxine (Synthroid, Levoxyl) 25 mcg tablet Take 1 tablet (25 mcg) by mouth once daily in the morning. Take before meals. 0 12/07/2022 04/30/2023 Discontinued (Therapy completed)lisinopril 10 mg oral tablet (20 sources)Angiotensin Converting Enzyme InhibitorStart: 05-13-2023 End: 81-10-6162ajyq 1 tablet by mouth once dailylisinopril 10 mg tablet Indications: Benign essential hypertension Take 1 tablet (10 mg) by mouth once daily. 90 tablet 3 05/13/2023 05/03/2024 Discontinued (Med List Cleanup)Start: 03-09-2023 End: 63-55-9935avym 1 tablet by mouth once dailylisinopril 10 mg tablet Indications: Primary hypertension TAKE 1 TABLET BY MOUTH EVERY DAY 30 tablet 6 03/09/2023 04/30/2023 Discontinued (Entered in Error)Start: 08-95-5495ziga 1 tablet by mouth once dailyLisinopril 10 MG Oral Tablet TAKE 1 TABLET DAILY. Quantity: 90 Refills: 3 Ordered: 02-Jan-2022 Koffi Uriarte MD Start : 14-Oct-2020 ActiveStart: 42-62-0786vrelchiopu (ZESTRIL, PRINIVIL) 10 mg tablet Take by mouth q 24 HR. 0 10/14/2020 ActiveComment on above:Take by mouth q 24 HR.24 hr metFORMIN hydrochloride 500 mg extended release oral tablet (1 source)BiguanideStart: 11-16-2022 End: 70-52-6350uobm 1 tablet by mouth once daily at mealtimemetFORMIN XR 500 mg 24 hr tablet Take 1 tablet (500 mg) by mouth once daily in the evening. Take wit h meals. 0 11/16/2022 04/30/2023 Discontinued (Therapy completed)naproxen 500 mg oral tablet (1 source)Nonsteroidal Anti-inflammatory DrugStart: 20-20-9202mtxr 1 tablet by mouth twice dailyNaprosyn 500 mg Tab 500 mg = 1 tab(s), Oral, BID, # 120 tab(s), Refills(s) 0, [facility]: [id number] Start Date: 06/05/19 Status: Ordered MV-Min-Fe Fum-FA-DHA ( 1 PO) (20 sources) MV-Min-Fe Fum-FA-DHA ( 1 PO) Take by mouth Active promethazine hydrochloride 12.5 mg oral tablet (20 sources)PhenothiazineStart: 79-20-9984ftbx 2 tablets by mouth every six hours [...] for nausea. 30 tablet 1 02/02/2025 ActiveStart: 12-51-5618ncuj 2 tablets by mouth every six hours [...] for nausea. 30 tablet 2 02/01/2025 ActiveStart: 45-11-5233xtxz 2 tablets by mouth every six hours [...] 0.9 % injection 3 mL (1 source)Start: 29-66-5605knsgnz chloride flush 0.9 % injection 3 mL Completed/Discontinued Medications MedicationDrug Class(es)DatesSig (Normalized)Sig (Original)busPIRone hydrochloride 10 mg oral tablet (3 sources)Start: 33-68-0736gzbr 1 tablet by mouth three times daily as needed busPIRone HCl - 10 MG Oral Tablet TAKE 1 TABLET 3 times daily PRN Quantity: 60 Refills: 1 Koffi Uriarte MD Start : 28-May-2020 Activegadoteridol (PROHANCE) injection 15 mL (1 source)Start: 05-09-2020 End: 03-42-9719znkqlufhvjy (PROHANCE) injection 15 mLmelatonin 10 mg oral tablet (8 sources)Start: 13-10-0679elxl 1 tablet by mouth at bedtimeMelatonin 10 MG Oral Tablet TAKE 1 TABLET Bedtime Quantity: 30 Refills: 3 Ordered: 25-Apr-2020 Doe Andrade DO Start : 25-Apr-2020 Active Patient requesting compounded melatoninmetroNIDAZOLE 500 mg oral tablet (10 sources)Nitroimidazole AntimicrobialStart: 09-09-2021 End: 49-39-6139nbug 1 tablet by mouth twice dailymetroNIDAZOLE (FLAGYL) 500 mg tablet Indications: Acute vaginitis Take 1 tablet by mouth twice daily. for vaginosis. Do not drink alcohol while taking this medication 14 tablet 0 02/03/2022 ActiveStart: 06-60-3037rccqmMMYLUAKN 0.75 % Vaginal Gel INSERT 1 APPLICATORFUL INTRAVAGINALLY AT BEDTIME NIGHTLY. Quantity: 1 Refills: 0 Ordered: 20-May-2021 Koffi Uriarte MD Start : 20-May-2021 ActiveStart: 06-09-2019 End: 18-90-7334TmelzQor-Vaginal 0.75% gel with applicator 1 bruce, Vaginal, BID, 70 gram, Refill(s) 0, [facility] Start Date: 06/09/19 Stop Date: 06/14/19 Status: OrderedComment on above:Take 1 tablet by mouth twice daily. for vaginosis. Do not drink alcohol while taking this medicationondansetron 4 mg disintegrating oral tablet (11 sources)Serotonin-3 Receptor AntagonistStart: 01-12-2025 End: 77-06-0245alfa 1 tablet by mouth every six hours for nauseaondansetron ODT (Zofran-ODT) 4 MG disintegrating tablet Indications: Nausea and vomiting in ([facility]) Take 1 tablet (4 mg) by mouth every 6 (six) hours if needed for nausea or vomiting 30 tablet 2 01/12/2025 02/11/2025 ExpiredStart: 35-68-2506minp 4 mg by mouth every eight hoursOndansetron Hcl Active 4 MG PO Every 8 hours November 09, 2023 12:00amStart: 02-10-2023 End: 33-19-6226oujr 2 tablets by mouth twice daily as needed for nausea ondansetron (Zofran) 4 mg tablet Take 2 tablets (8 mg) by mouth 2 times a day as needed for nausea.02/10/2023 05/03/2024 Discontinued (Med List Cleanup)Orsythia 0.1-20 MG-MCG Oral Tablet (3 sources)Start: 02-69-1322sfrv 1 tablet by mouth once dailyOrsythia 0.1-20 MG- MCG Oral Tablet TAKE 1 TABLET DAILY. Quantity: 1 Refills: 3 Ordered: 25-May-2019 Koffi Uriarte MD Start : 12-Oct-2015 Activesertraline 50 mg oral tablet (4 sources)Serotonin Reuptake InhibitorStart: 19-55-5767tnzf 1 tablet by mouth once dailySertraline HCl - 50 MG Oral Tablet TAKE 1 TABLET DAILY. Quantity: 30 Refills: 11 Ordered: 14-Oct-2020 Koffi Uriarte MD Start : 28-May-2020 Jdyvlg35 ml sodium chloride 9 mg/ml injection (1 source)Start: 04-18-2020 End: 04-19-20200.9 % sodium chloride bolus Problems Active Problems Problem ClassificationProblemDateDocumented DateEpisodic/ChronicAnxiety disorders (20 sources)Anxiety; Translations: [Anxiety state, unspecified]Onset: 10-02-2022 66-18-7983IhcbgopWjmhtygngfzuc and procreative management (7 sources)Contraception ; Translations: [Encounter for surveillance of contraceptives, unspecified]Onset: 356720-90-4966EzzqnlyeKoojnmrw; convulsions (1 source)Idiopathic generalized epilepsy; Translations: [Nonintractable generalized idiopathic epilepsy without status epilepticus (HCC)]Chronic Essential hypertension (20 sources)Benign essential hypertension; Translations: [Benign essential hypertension]Onset: 10-02-2022 Resolved: 418737-03-1147RdtphxvApnorzuczi during ; abruptio placenta; placenta previa (2 sources)Antepartum hemorrhage; Translations: [Hemorrhage in early , unspecified]Onset: 94-42-4837CkeafttnJkwmxjgcyeiin and screening for infectious disease (4 sources)Encounter for screening for infections with a predominantly sexual mode of transmission; Translations: [Exposure to sexually transmissible disorder]Onset: 171998-05-2931BsebrydjBghrzihyo disorders (3 sources)Missed period; Translations: [Irregular menstruation, unspecified] 30-82-7779FddhwsaAsxsqo and vomiting (2 sources)Nausea and vomiting; Translations: [Nausea with vomiting, unspecified]70-25-0853SqclearmEkihfywmefa deficiencies (3 sources)Vitamin D deficiency; Translations: [Vitamin D deficiency, unspecified]Onset: 041397-01-7874LhacigiBjbdd complications of (1 source)Vomiting of , unspecified; Translations: [Unspecified vomiting of , unspecified as to episode of care or not applicable] 20-73-0772OjkwnwzzXskxx female genital disorders (18 sources)Vaginal discharge; Translations: [Leukorrhea, not specified as infective]Onset: 10-02-2022 Resolved: 282186-60-4514QxfurwpgEyaua nutritional; endocrine; and metabolic disorders (3 sources)Obese class I; Translations: [Obesity, unspecified]Onset: 07-04-2021 44-54-9397NjyzdtkRrbxr and delivery including normal (12 sources); Translations: [Encounter for supervision of normal , unspecified, unspecified trimester]22-43-3022EwtqsetjAcvaj screening for suspected conditions (not mental disorders or infectious disease) (4 sources)Patient encounter status; Translations: [Encounter for other specified screening]35-03-2763LnwzduyrHfhwx upper respiratory infections (20 sources)Chronic sinusitis; Translations: [Chronic pansinusitis]Onset: 10-02-2022 Resolved: 824728-51-7770AbkfoohPncpul media and related conditions (5 sources)Chronic otitis media; Translations: [Bilateral chronic otitis media] ChronicPolyhydramnios and other problems of amniotic cavity (2 sources)Subchorionic hematoma; Translations: [Other specified disorders of amniotic fluid and membranes, second trimester, not applicable or unspecified] 01-10-1651PdtbvyqnYrexhmpo codes; unclassified (2 sources)Gestation period, 11 weeks; Translations: [11 weeks gestation of ]78-61-7503MhumnmbzLripczyu codes; unclassified (2 sources)Gestation period, 12 weeks; Translations: [12 weeks gestation of ]29-57-6638HgemwlxcVfzgtins codes; unclassified (2 sources)Gestation period, 16 weeks; Translations: [16 weeks gestation of ]10-30-7121BypbopleOccsvrxw codes; unclassified (2 sources)Gestation period, 20 weeks; Translations: [20 weeks gestation of ]96-19-9219ZzumyfkcZvznqtsq codes; unclassified (2 sources)Gestation period, 24 weeks; Translations: [24 weeks gestation of ]96-56-3395LujdqeavDkfamckpjtbr (1 source)Unknown / UNK(Unknown)Onset: 79-98-3091Ngtanqdgtllt (3 sources)APPOINTMENT CANCELLEDOnset: 970072-93-3357Vetvntjzoqry (20 sources)OB RemindersOnset: 401424-69-5381 Past or Other Problems Problem ClassificationProblemDateDocumented DateEpisodic/ChronicAcute and chronic tonsillitis (9 sources)Amygdalolith; 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 Calderon. lamotrigine;Inflammatory diseases of female pelvic organs (18 sources)Bacterial vaginosis; Translations: [Vaginitis and vulvovaginitis, unspecified]Onset: 07-04-2021 Resolved: 55-92-0170QweagwrmGloienj and fatigue (4 sources)Fatigue; Translations: [Other fatigue]Onset: EpisodicMalposition; malpresentation (20 sources)Breech presentation; Translations: [Maternal care for breech presentation, not applicable or unspecified]Onset: 142032-13-6032Whazxryc Nonspecific chest pain (20 sources)Chest pain; Translations: [Chest pain, unspecified]Onset: 10-02-2022 Resolved: 629499-42-0135NdxtdzpvNmujwdwueyd deficiencies (20 sources)Cobalamin deficiency; Translations: [Other B-complex deficiencies] Onset: 633438-01-5429TmknrkjsWxcxc circulatory disease (20 sources)Feeling of lump in throat; Translations: [Gastrointestinal malfunction arising from mental factors]Onset: 10-02-2022 Resolved: 738281-14-2362TogcqnwkBjapn circulatory disease (20 sources)Elevated blood-pressure reading without diagnosis of hypertension; Translations: [Elevated blood pressure reading without diagnosis of hypertension]Onset: 10-02-2022 Resolved: 122545-44-7521KaaixfaeNjgpk ear and sense organ disorders (20 sources)Conductive hearing loss, bilateral; Translations: [Conductive hearing loss, bilateral]Onset: 10-02-2022 Resolved: 048947-10-7258XzpnmwxTguov nutritional; endocrine; and metabolic disorders (9 sources)Obesity; Translations: [Obesity, unspecified]Onset: 03-28-2023 Resolved: 576515-67-4683ZmndbbpRnlzl nutritional; endocrine; and metabolic disorders (19 sources)Abnormal weight gain; Translations: [Abnormal weight gain]Onset: 10-02-2022 Resolved: 129921-35-9315CcmrheznWkofz skin disorders (20 sources)Loss of hair; Translations: [Alopecia, unspecified]Onset: 10-02-2022 Resolved: 972367-48-6214RjvyodauJdfwl upper respiratory disease (20 sources)Allergic rhinitis; Translations: [Allergic rhinitis, cause unspecified]Onset: 10-02-2022 Resolved: 355852-80-3098QmwxyzwTasqlz media and related conditions (19 sources)Chronic otitis media; Translations: [Unspecified otitis media]Onset: 10-02-2022 Resolved: 603580-31-2054TtyfzpnlGxviugkq codes; unclassified (20 sources)Insomnia; Translations: [Insomnia, unspecified]Onset: 10-02-2022 Resolved: 392695-42-0402UajxfkkqBpvctrlihxxf (1 source)R07.9 14562/8Onset: 98-42-0795Jizyzjqnkugk (5 sources)Patient encounter status; Translations: [Encounter for audiology evaluation]Unclassified (2 sources)Onset: 648805-16-2655HTXRIBY: Highlighted row has not occurred! Residual codes; unclassified (17 sources)DiseaseEpisodic Results Test NameValueInterpretationReference RangeFacilityALL CBC WITH AUTO DIFFon 20-68-4003JUTSTBDDR ABSOLUTE AUTO0.0NOMS HealthcareBasophils/100 WBC (Bld)0.1 % Low0.2 - 2.0 %N[facility]S HealthcareEosinophils/100 WBC (Bld)0.1 %Low0.9 - 7.0 %NOMS HealthcareErythrocyte distribution width (RBC) [Ratio]12.3 %11.0 - 15.0 %[facility]S HealthcareHematocrit (Bld) [Volume fraction]30.2 %Low36.0 - 48.0 %[facility] HealthcareHemoglobin (Bld) [Mass/Vol]10.2 g/dLLow12.0 - 16.0 g/dLNOHI Healthcare IMMATURE GRANULOCYTES ABS AUTO0.07HighNOMS HealthcareImmature granulocytes/100 WBC (Bld)0.7 %High0.0 - 0.5 %[facility] HealthcareInterpretation and review of laboratory resultsAbnormalNOMS HealthcareLYMPHOCYTES ABSOLUTE AUTO2.2NOMS HealthcareLymphocytes/100 WBC (Bld)22.1 %20.5 - 60.0 %NOMS HealthcareMCH (RBC) [Entitic mass]31.8 pg26.7 - 34.0 pgFreeman Health SystemMCHC (RBC) [Mass/Vol]33.8 g/dL 29.9 - 35.2 g/dLFreeman Health SystemMCV (RBC) [Entitic vol]94.1 fL81.0 - 99.0 fLNOHI HealthcareMONOCYTES ABSOLUTE AUTO0.6NOHI HealthcareMonocytes/100 WBC (Bld)5.9 % 1.7 - 12.0 %NOM HealthcareNEUTROPHILS ABSOLUTE AUTO6.9HighFreeman Health System Neutrophils/100 WBC (Bld)71.1 %43.0 - 75.0 %NOM HealthcarePlatelet mean volume (Bld) [Entitic vol]8.9 fLLow9.5 - 13.5 fLNOHI HealthcareTBH EO #0.0NOHI HealthcareTBH CYR459NOAV HealthcareTB RBC3.21LowNOHI HealthcareTBH WBC9.8NOHI HealthcareCLINISYNCNOMS HealthcareUrinalysis macro (dipstick) panel (U)on 77-94-3124Kvmrwmyev, UANegativeNegative - 4(70) +++ mg/dLNOHI HealthcareBlood, UANegativeNegative - 50 Jae/mcLNOHI HealthcareClarity, UAClearNOHI Healthcare Color, UAYellowNOHI HealthcareGlucose, UANegativeNegative - 2000(110) ++++ mg/dL [facility] HealthcareInterpretation and review of laboratory resultsAbnormalNOHI HealthcareKetones, UANegativeNegative - 160(16) ++++ mg/dLSHRINERS HOSPITALS FOR CHILDREN Healthcare Leukocytes, UA2+Negative - 500+++ Marsha/mcLNOHI HealthcareNitrite, UANegative Negative - PositiveNOMS HealthcarepH, UA6.05 - 9NOHI HealthcareProtein, UA NegativeNegative - 2000(20) ++++ mg/dLNOHI HealthcareSpec Grav, UA1.0201 - 1.03 N[facility] HealthcareUrobilinogen, UA1.00.2 - 12 mg/dLNOHI HealthcareNOHI Healthcare AFP, SERUM, OPEN SPINA BIFIDAon 31-12-0011NIH MOM0.82.[facility] HealthcareAFP VALUE 45.0 ng/mL.[facility] HealthcareCOMMENT:Comment.[facility] HealthcareComment on above:Jeny Avila, Ph.D., [facility] Director References: Available Upon Request. Multiples Of Median Cutoffs For AFP Elevations Payan 2.5 Black 2.8 IDD 2.0 Twins 4.5 Abbreviation Definitions IDD - Insulin Dep Diabetes OSBR - Open Spina Bifida Risk For further inquiries contact [facility] at [phone]. This test was developed and its performance characteristics determined by [facility]. It has not been cleared or approved by the Food and Drug Administration. Performed at: [facility] [address] [place], [place] [address] Dry Cleaning Attendant: Abdulaziz Aquino [facility], Phone: [phone] GEST. AGE ON COLLECTION DATE20.7. weeksNOHI HealthcareGESTAT. AGE BASED ONLMP. NOMS HealthcareComment on above:Recalculations are not recommended when gestational dating by LMP and ultrasound are within 10 days. INSULIN DEP DIABETESNo.[facility] HealthcareINTERPRETATIONComment.[facility] Healthcare Comment on above:Interpretation: Screen Negative This [...] Customer Services to discuss available options. The [employer] recommends amniocentesis be offered to women age 35 and older. MATERNAL AGE AT EDD31.8. yrNOHI HealthcareMULTIPLE GESTATIONNo.[facility] OSBR RISK 1 [id number].NOMS HealthcareRACECaucasian.NOMS HealthcareRESULTSReport. NOMS HealthcareTEST RESULTS:Negative.NOMS IadmqagfvhYMVKTZ739. lbsNOHI HealthcarePREGNANCY N N LMP [id number] 2 16 N 1 Y 183 N N N N N White/ CLINISYNCNOHI HealthcareNo Panel InformationOrdered By: Radiologist Radiology on 75-43-9418[facility] Work Phone: No Panel Informationon 03-94-5604Rwcdbzkmh Study observation (narrative)NOMS HealthcareUS OB ANATOMYon 84-90-3662[address] [address] Ultrasound Report Signed Patient: PRINCESS GUERRERO MR#: [id number] : 1995 Acct:[id number] Age/Sex: 29 / F ADM Date: 04/03/25 Loc: US Attending Dr: Willis Chen D.O. Ordering Physician: Willis Chen D.O. Date of Service: 04/03/25 Procedure(s): US OB anatomy Accession Number(s): [id number] cc: Willis Chen D.O.; KOFFI URIARTE M.D. [place] [address] Patient Name: PRINCESS GUERRERO MRN: [id number] date: 1995 Sex: F Assigned Patient Location: US Current Patient Location: Accession/Order Number: [id number] Exam Date: 04/03/2025 18:53 Report Date: 04/04/2025 [...] all 4 extremities were surveyed by the rocket test fire worker and no abnormalities were reported. The stomach, [...] Pisano M.D. 04/04/2025 9:12 AM Dictation Location: [place] [address] Electronically authenticated by: [id number] Y Date: 04/04/2025 09:12 Dictated By: Cyndi Pisano M.D. Signed By: 04/04/25913 DD/ 1 TD/TT: Network Engineering Advisor:TBHRadiology, Radiologist, - 04/04/2025 [place] [address] Ultrasound Report Signed Patient: PRINCESS GUERRERO MR#: [id number] : 1995 Acct:[id number] Age/Sex: 29 / F ADM Date: 04/03/25 Loc: US Attending Dr: Willis Chen D.O. Ordering Physician: Willis Chen D.O. Date of Service: 04/03/25 Procedure(s): US OB anatomy Accession Number(s): [id number] cc: Willis Chen D.O.; KOFFI URIARTE M.D. The [address] [id number] Patient Name: PRINCESS GUERRERO MRN: [facility]:[id number] date: 1995 Sex: F Assigned Patient Location: US Current Patient Location: Accession/Order Number: [id number] Exam Date: 04/03/2025 18:53 Report Date: 04/04/2025 [...] all 4 extremities were surveyed by the rocket test fire worker and no abnormalities were reported. The stomach, [...] Pisano M.D. 04/04/2025 9:12 AM Dictation Location: [place] [address] Electronically authenticated by: [id number] Y Date: 04/04/2025 09:12 Dictated By: Cyndi Pisano M.D. Signed By: 04/04/25913 DD/ 1 TD/TT: Network Engineering Advisor: JOSY Lopez OB CERVICAL LENGTHon 33-72-7789[place] [address] Ultrasound Report Signed Patient: PRINCESS GUERRERO MR#: [id number] : 1995 Acct:[id number] Age/Sex: 29 / F ADM Date: 04/03/25 Loc: US Attending Dr: Willis Chen D.O. Ordering Physician: Willis Chen D.O. Date of Service: 04/03/25 Procedure(s): US OB cervical length Accession Number(s): [id number] cc: Willis Chen D.O.; KOFFI URIARTE M.D. The [place] [address] Patient Name: PRINCESS GUERRERO MRN: [facility]:[id number] date: 1995 Sex: F Assigned Patient Location: Current Patient Location: Accession/Order Number: [id number] Exam Date: 04/03/2025 18:53 Report Date: 04/04/2025 [...] all 4 extremities were surveyed by the rocket test fire worker and no abnormalities were reported. The stomach, [...] Pisano M.D. 04/04/2025 9:12 AM Dictation Location: [facility] Electronically authenticated by: [id number] Y Date: 04/04/2025 09:12 Dictated By: Cyndi Pisano M.D. Signed By: 04/04/2514 DD/ 1 TD/TT: Network Engineering Advisor:TBHRadiology, Radiologist, - 04/04/2025 [place] [address] Ultrasound Report Signed Patient: PRINCESS GUERRERO MR#: [id number] : 1995 Acct:[id number] Age/Sex: 29 / F ADM Date: 04/03/25 Loc: US Attending Dr: Willis Chen D.O. Ordering Physician: Willis Chen D.O. Date of Service: 04/03/25 Procedure(s): US OB cervical length Accession Number(s): [id number] cc: Willis Chen D.O.; KOFFI URIARTE M.D. The [place] [id number] Patient Name: PRINCESS GUERRERO MRN: [id number] date: 1995 Sex: F Assigned Patient Location: US Current Patient Location: Accession/Order Number: [id number] Exam Date: 04/03/2025 18:53 Report Date: 04/04/2025 [...] all 4 extremities were surveyed by the rocket test fire worker and no abnormalities were reported. The stomach, [...] Pisano M.D. 04/04/2025 9:12 AM Dictation Location: [employer] Electronically authenticated by: [id number] Y Date: 04/04/2025 09:12 Dictated By: Cyndi Pisano M.D. Signed By: 04/04/25913 DD/ 1 TD/TT: Network Engineering Advisor: JOSY EscobarUrinalysis macro (dipstick) panel (U)on 03-47-8863Xilxyohcf, UA NegativeNegative - 4(70) +++ mg/dLNOMS HealthcareBlood, UANegativeNegative - 50 Jae/mcLNOMS HealthcareClarity, UAClearNOMS HealthcareColor, UAStrawNOMS HealthcareGlucose, UANegativeNegative - 2000(110) ++++ mg/dLNOMS Healthcare Interpretation and review of laboratory resultsAbnormalNOMS HealthcareKetones, UAPositiveNegative - 160(16) ++++ mg/dLNOMS HealthcareLeukocytes, UAPositive Negative - 500+++ Marsha/mcLNOMS HealthcareNitrite, UANegativeNegative - Positive NOMS HealthcarepH, UA65 - 9NOMS HealthcareProtein, UAPositiveNegative - 2000(20) ++++ mg/dLNOMS HealthcareSpec Grav, UA1.021 - 1.03NOMS HealthcareUrobilinogen, UA1.00.2 - 12 mg/dLNOMS HealthcareNOMS HealthcareUS OB LIMITED 1+ FETUSESon 75-77-0642AX OB LIMITED 1+ FETUSESFINDINGS: Cephalic presentation. Posterior placenta. heart rate 156. No evidence of significant amniotic band or subchronic hemorrhage. IMPRESSION: Normal viable fetus, no gestational sac abnormality TRANSCRIBED BY: ELECTRONICALLY SIGNED BY: Shelia ArellanoNot AvailableIGP,APTIMA HPV,AGE GDLNon 24-87-3896PXY GDLN ACOG TESTINGNote.[facility] HealthcareComment on above:TESTS RESULT FLAG UNITS REF RANGE LAB Clinician Provided Cytology Information Source.............Endocervix No. of containers..01 ThinPrep Vial Age Algo ACOG Evie... FLAG LEGEND: L-Low Normal,H-High Normal,LL-Alert Low,HH-Alert High <-Panic Low,>-Panic High,A-Abnormal,AA-Critical Abnormal Performed at: 01 =G [address] [address] Karena Lester MD, HPV APTIMANegativeNegativeNOMS HealthcareComment on above:This nucleic acid amplification test detects fourteen high- risk HPV types (16,18,31,33,35,39,45,51,52,56,58,59,66,68) without differentiation. Performed at: =[address] [id number] Dry Cleaning Attendant: Karena Lester MD, Phone: [phone] Performed at: [address] [id number] Dry Cleaning Attendant: Karena Lester MD, Phone: [phone] IGP, APTIMA HPV, RFX 16/18,45Note.NOMS HealthcareComment on above:TESTS RESULT FLAG UNITS REF RANGE LAB DIAGNOSIS: 02 NEGATIVE FOR INTRAEPITHELIAL LESION OR MALIGNANCY. Specimen adequacy: 02 Satisfactory for evaluation. No endocervical component is identified. Performed by: 02 Calvin [place] Mold Release Worker ([facility]) . 02 Note: Note 02 The Pap [...] High,A-Abnormal,AA-Critical Abnormal Performed at: 02 [address] [facility] [address] [place] [address] Karena Lester MD, SPATULA-ALONE ENDOCERVIX CLINISYNCNOMS HealthcareRECURRENT VAGINITIS (HTRX)on 30-38-5360QYGGWJQJM VAGINAE 0NOMS HealthcareATOPOBIUM VAGINAENot detectedNOMS HealthcareBVAB 2,3 (BACTERIAL VAGINOSIS ASSOCIATED BACTERIA 2, 3); MOBILUNCUS [id number] HealthcareBVAB 2,3 (BACTERIAL VAGINOSIS ASSOCIATED BACTERIA 2, 3); MOBILUNCUS SPPNot detectedNOMS HealthcareCANDIDA ALBICANS, PARAPSILOSIS, [id number] HealthcareCANDIDA ALBICANS, PARAPSILOSIS, TROPICALISNot detectedNOMS HealthcareCANDIDA GLABRATA0 NOMS HealthcareCANDIDA GLABRATANot detectedNOMS HealthcareCANDIDA LKFFMP4PMSC HealthcareCANDIDA KRUSEINot detectedNOMS HealthcareCHLAMYDIA [id number] HealthcareCHLAMYDIA TRACHOMATISNot detectedNOMS HealthcareGARDNERELLA VAGINALIS0 NOMS HealthcareGARDNERELLA VAGINALISNot detectedNOMS HealthcareMEGASPHAERA (TYPES 1, 2)0NOMS HealthcareMEGASPHAERA (TYPES 1, 2)Not detectedNOMS Healthcare MYCOPLASMA [id number] HealthcareMYCOPLASMA GENITALIUMNot detectedNOMS HealthcareNEISSERIA [id number] HealthcareNEISSERIA GONORRHOEAENot detected NOMS HealthcareTRICHOMONAS [id number] HealthcareTRICHOMONAS VAGINALISNot detectedNOMS HealthcareNOMS HealthcareUrinalysis macro (dipstick) panel (U)on 70-46-3324Evsydrvqy, UANegativeNegative - 4(70) +++ mg/dLNOHI HealthcareBlood, UAPositiveNegative - 50 Jae/mcLNOHI HealthcareClarity, UAClearNOMS Healthcare Color, UAYellowNOMS HealthcareGlucose, UANegativeNegative - 2000(110) ++++ mg/dL [facility] HealthcareInterpretation and review of laboratory resultsAbnormalNOHI HealthcareKetones, UANegativeNegative - 160(16) ++++ mg/dLNOHI Healthcare Leukocytes, UANegativeNegative - 500+++ Marsha/mcLNOHI HealthcareNitrite, UA NegativeNegative - PositiveNOMS HealthcarepH, UA65 - 9NOMS HealthcareProtein, UA NegativeNegative - 2000(20) ++++ mg/dLNOHI HealthcareSpec Grav, UA1.021 - 1.03 NOMS HealthcareUrobilinogen, UA1.00.2 - 12 mg/dLNOMS HealthcareNOMS HealthcareUS OB < 14 WEEKS EARLYon 22-46-2396XQ OB < 14 WEEKS EARLYFINDINGS: Single viable intrauterine , cardiac activity 145 bpm. Normal cardiac activity. No significant subchorionic fluid collection. Thin septation neighboring the cord, questionable significance, possible developing band. IMPRESSION: Viable intrauterine no abnormal subchorionic fluid collection. Given the additional findings within the gestational sac, follow up imaging may be of assistance. TRANSCRIBED BY: ELECTRONICALLY SIGNED BY: Luis E Arellano AvailableComment on above:Order Comment: US OB < 14 Weeks (Abdominal ONLY) Patient's last menstrual period was 11/13/2024.Urinalysis macro (dipstick) panel (U)on 91-78-4632Mcqjonzad, UANegativeNegative - 4(70) +++ mg/dLNOHI Healthcare Blood, UANegativeNegative - 50 Jae/mcLSHRINERS HOSPITALS FOR CHILDREN HealthcareClarity, UAClearNOMS HealthcareColor, UAYellowNOHI HealthcareGlucose, UANegativeNegative - 2000(110) ++++ mg/dLNOHI HealthcareInterpretation and review of laboratory resultsNormal NOMS HealthcareKetones, UAPositiveNegative - 160(16) ++++ mg/dLSHRINERS HOS[facility]ITALS FOR CHIL[facility]EN Healthcare Leukocytes, UANegativeNegative - 500+++ Marsha/[facility] HealthcareNitrite, UA NegativeNegative - PositiveNOHI HealthcarepH, UA55 - 9NOMS HealthcareProtein, UA TraceNegative - 2000(20) ++++ mg/dLNOHI HealthcareSpec Grav, UA1.031 - 1.03NOHI HealthcareUrobilinogen, UA1.00.2 - 12 mg/dLNOMS [facility] HospitalNOMS HealthcareBOX TESTon 51-02-0263JUZ TEST SENT OUTYESSHRINERS HOSPITALS FOR CHILDREN GpibiodguvJRJ0LJFLBEYCY HealthcareBOX2 01/22/25NOHI HealthcareCLINISYNCNOMS HealthcareUS Pelvis transvaginalon 01-14-2025 EXAM: US [...] MD, PHD at 14-Jan-2025 10:04:37 PM [facility] Teleradiology IMAGINGSluss, MD Rosneda - 01/14/2025 EXAM: US OB TRANSVAGINAL HISTORY: [...] II, MD, PHD at 14-Jan-2025 10:04:37 PM [employer] NOMS HealthcareUS Pelvis transvaginalOrdered By: Rosenda Torres on [id number] Healthcare Work Phone: HCG ( test) Ql (U)on 10-51-8676Icrqyfxnmdkjpl and review of laboratory resultsAbnormalNOHI HealthcarePreg Test, UrPositive NegativeNOResearch Psychiatric CenterNOHI HealthcareUS OB TRANSVAGINALon 56-96-7141HH OB TRANSVAGINALEXAM: US OB TRANSVAGINAL HISTORY: Dating. [...] ovaries. Interpreted by: Electronically signed by ROSENDA TORERS II, MD, PHD at 14-Jan-2025 10:04:37 PM [employer] TeleradiologyNormalNot AvailableComment on above:Order Comment: US OB TRANSVAGINAL No LMP recorded.US Pelvis transvaginalon 86-83-7783Ulsnbfvoo Study observation (narrative)NOMS HealthcareUrinalysis macro (dipstick) panel (U)on 01-12-2025 Bilirubin, UANegativeNegative - 4(70) +++ mg/dLNOMS HealthcareBlood, UANegative Negative - 50 Jae/mcLNOMS HealthcareClarity, UAClearNOMS HealthcareColor, UA YellowNOMS HealthcareGlucose, UANegativeNegative - 2000(110) ++++ mg/dLNOMS HealthcareInterpretation and review of laboratory resultsAbAscension [facility] Ketones, UANegativeNegative - 160(16) ++++ mg/dLNOMS HealthcareLeukocytes, UA TraceNegative - 500+++ Marsha/mcLNOMS HealthcareNitrite, UANegativeNegative - PositiveNOMS HealthcarepH, UA75 - 9NOMS HealthcareProtein, UANegativeNegative - 2000(20) ++++ mg/dLNOMS HealthcareSpec Grav, UA1.021 - 1.03N[facility]S Healthcare Urobilinogen, UA0.20.2 - 12 mg/dLNOMS HealthcareNOMS Uvgncphozi06-lcnpjhjvbjibwe D3 [Mass/Vol]on 344166-kmntzphuwlpgqy D [Mass/Vol]26 ng/mLLow30 - 100 ng/mLMercy HospitalComment on above:Vitamin D Status 25-OH Vitamin D: Deficiency: <20 ng/mL Insufficiency: 20 - 29 ng/mL Optimal: > or = 30 ng/mL For 25-OH Vitamin D testing on patients on D2-supplementation and patients for whom quantitation of D2 and D3 fractions is required, the QuestAssureD(TM) 25-OH VIT D, (D2,D3), LC/MS/MS is recommended: order code 09366 (patients >2yrs). See Note 1 Note 1 For additional information, please refer to http://education.[employer]/faq/RVZ720 (This link is being provided for informational/ educational purposes only.) Interpretation and review of laboratory resultsAbSelect Medical [facility] (H/H, RBC, INDICES, WBC, PLT)on 66-88-2682Nmnnkqbnaea distribution width (RBC) [Ratio]12.3 %Kngzaj64.0-15.0Quest DiagnosticsComment on above: Performed By: #### 7600, 17822, 72957, 927, 175, #### [facility] [place] [address] District Traffic Chief: Brandon Camara MDHematocrit (Bld) [Volume fraction]38.8 %Normal 35.0-45.0Quest DiagnosticsComment on above:Performed By: #### 7600, 64847, 73088, 927, 175, #### [facility] [place] [address] District Traffic Chief: Brandon Camara MDHemoglobin (Bld) [Mass/Vol]12.7 g/dLNormal 11.7-15.5Quest DiagnosticsComment on above:Performed By: #### 7600, 53908, 63064, 927, 1758, #### [facility] [place] [address] District Traffic Chief: Brandon Camara MDMCH (RBC) [Entitic mass]28.4 zmMaesgm97.0-33.0 Quest DiagnosticsComment on above:Performed By: #### 7600, 56832, 89033, 927, 175, #### [facility] [place] [address] District Traffic Chief: Brandon DOTYCHC (RBC) [Mass/Vol]32.7 g/dGMzvtql17.0-36.0 Quest DiagnosticsComment on above:Result Comment: For adults, a slight decrease in the calculated MCHC value (in the range of 30 to 32 g/dL) is most likely not clinically significant; however, it should be interpreted with caution in correlation with other red cell parameters and the patient's clinical condition.Performed By: #### 7600, 04332, 04486, 927, 1759, 96350 #### [facility] of [place] [address], [address] [place] [address] District Traffic Chief: Brandon Camara MDMCV (RBC) [Entitic vol]86.8 nHQslnbw44.0-100.0 Quest DiagnosticsComment on above:Performed By: #### 7600, 95648, 57103, 927, 1759, 65463 #### [facility] [place] [address], [address] [place] [phone] District Traffic Chief: Brandon Camara MDPlatelet mean volume (Bld) [Entitic vol]9.0 fL Normal7.5-12.5Quest DiagnosticsComment on above:Performed By: #### 7600, 04166, 22551, 927, 175, #### [facility] [place] [address] , [address] [place], [place] [phone] District Traffic Chief: Brandon Camara MDPlatelets (Bld) [#/Vol]260 10*3/uLNormal 140-400Quest DiagnosticsComment on above:Performed By: #### 7600, 88603, 46255, 927, 1759, 83943 #### [facility] [place] [address], [address] [place], [place] [phone] District Traffic Chief: Brandon Camara MDRBC (Bld) [#/Vol]4.47 10*6/uLNormal3.80-5.10 Quest DiagnosticsComment on above:Performed By: #### 7600, 26217, 03488, 927, 1759, 35830 #### [facility] [place] [address], [address] [place] [phone] District Traffic Chief: Brandon Camara MDWBC (Bld) [#/Vol]5.5 10*3/uLNormal3.8-10.8 Quest DiagnosticsComment on above:Performed By: #### 7600, 32995, 30851, 927, 1759, 17917 #### [facility] [place] [address], [address] [place] [address] District Traffic Chief: Brandon Camara MDCBC panel Auto (Bld)on 86-76-9418Xjhkoxwsfae distribution width (RBC) [Ratio]12.3 %11.0 - 15.0 %Mercy HospitalHematocrit (Bld) [Volume fraction]38.8 %35.0 - 45.0 %[facility]cy HospitalHemoglobin (Bld) [Mass/Vol]12.7 g/dL11.7 - 15.5 g/dL [facility] (RBC) [Entitic mass]28.4 pg27.0 - 33.0 pg [facility]HC (RBC) [Mass/Vol]32.7 g/dL32.0 - 36.0 g/dL Mercy HospitalComment on above:For adults, a slight decrease in the calculated MCHC value (in the range of 30 to 32 g/dL) is most likely not clinically significant; however, it should be interpreted with caution in correlation with other red cell parameters and the patient's clinical condition. MCV (RBC) [Entitic vol]86.8 fL80.0 - 100.0 [facility] Platelet mean volume (Bld) [Entitic vol]9 fL7.5 - 12.5 [facility] HospitalPlatelets (Bld) [#/Vol]260 10*3/[facility] HospitalRBC (Bld) [#/Vol]4.47 10*6/[facility] HospitalWBC (Bld) [#/Vol]5.5 10*3/[facility] HospitalCOMPREHENSIVE METABOLIC PANEL W/ANION GAPon 68-92-4049Vhrwsvd [Mass/Vol]4.8 g/dLNormal3.6-5.1Quest DiagnosticsComment on above:Performed By: #### 9778, 81797, 39552, 611, 1751, 83328 #### [facility] [address] [facility], [address] [place] [address] District Traffic Chief: Brandon Camara MDALP [Catalytic activity/Vol]60 U/YSbtfjg25-378 Quest DiagnosticsComment on above:Performed By: #### 7600, 25786, 69570, 927, 175, #### [facility] of [address], [address] [place] [address] District Traffic Chief: Brandon Camara MDALT [Catalytic activity/Vol]14 U/LNormal6-29 Quest DiagnosticsComment on above:Performed By: #### 7600, 41000, 77986, 92, 1758, #### [facility] of [address], [address] [place] [address] District Traffic Chief: Brandon Camara MDAST [Catalytic activity/Vol]12 U/PBjufzx04-78 Quest DiagnosticsComment on above:Performed By: #### 7600, 71625, 07640, 92, 1758, #### [facility] of [address], [address] [place] [address] District Traffic Chief: Brandon Camara MDBilirubin [Mass/Vol]0.4 mg/dLNormal0.2-1.2 Quest DiagnosticsComment on above:Performed By: #### 7600, 35603, 90174, 92, 1758, #### [facility] of [place] [address] District Traffic Chief: Brandon Camara MDCalcium [Mass/Vol]9.6 mg/dLNormal8.6-10.2Quest DiagnosticsComment on above:Performed By: #### 7600, 72310, 22858, 92, 1758, #### [facility] of [address], [address] [place] [address] District Traffic Chief: Brandon Camara MDChloride [Moles/Vol]102 mmol/RLlcgto80-740 Quest DiagnosticsComment on above:Performed By: #### 7600, 34758, 45510, 92, 175, #### [facility] of [place] [address] District Traffic Chief: Brandon Merati MDCO2 [Moles/Vol]28 mmol/UJhirbo62-37Sqfor DiagnosticsComment on above:Performed By: #### 7600, 25422, 99161, 927, 175, #### [facility] [place] [address] District Traffic Chief: Brandon MOREIRAreatinine [Mass/Vol]0.86 mg/dLNormal0.50-0.97 Quest DiagnosticsComment on above:Performed By: #### 7600, 27604, 22737, 92, 175, #### [facility] [place] [address] District Traffic Chief: Brandon Camara MDELECTROLYTE BALANCE7 mmol/L (calc)Normal7-17 Quest DiagnosticsComment on above:Performed By: #### 7600, 66478, 30738, 92, 1758, #### [facility] [place] [address] District Traffic Chief: Brandon Camara MDGFR/1.73 sq M.predicted among non-blacks MDRD (S/P/Bld) [Vol rate/Area]93 mL/min/{1.73_m2}Normal> OR = 60[facility] Comment on above:Performed By: #### 7600, 75407, 83899, 92, 1758, #### [facility] [place] [address] District Traffic Chief: Brandon Camara MDGlucose [Mass/Vol]90 mg/aICqzccx21-44Zzigw DiagnosticsComment on above:Result Comment: Fasting reference intervalPerformed By: #### 7600, 76918, 19226, 927, 175, 69302 #### [facility] [place] [address] District Traffic Chief: Brandon Camara MDPotassium [Moles/Vol]4.5 mmol/LNormal3.5-5.3 [facility] DiagnosticsComment on above:Performed By: #### 7600, 45562, 70991, 927, 1759, 97851 #### [facility] [place] [address] District Traffic Chief: Brandon Camara MDProtein [Mass/Vol]7.4 g/dLNormal6.1-8.1Quest DiagnosticsComment on above:Performed By: #### 7600, 23604, 88147, 927, 1759, 10878 #### [facility] [address], [address] [place] [address] District Traffic Chief: Brandon Camara MDSodium [Moles/Vol]137 mmol/SMwfldf141-014Twpzy DiagnosticsComment on above:Performed By: #### 7600, 20011, 87999, 927, 1759, 48149 #### [facility] of [address], [address] [place] [address] District Traffic Chief: Brandon Camara MDUrea nitrogen [Mass/Vol]7 mg/dLNormal7-25Quest DiagnosticsComment on above:Performed By: #### 7600, 75121, 31086, 927, 1759, 90729 #### [facility] of [place] [address] District Traffic Chief: Brandon Camara MDComprehensive metabolic 2000 panelon 42-44-1705Bxbaivl [Mass/Vol]4.8 g/dL3.6 - 5.1 g/dLUnBethesda North HospitalALP [Catalytic activity/Vol]60 U/L31 - 125 U/[facility] HospitalALT [Catalytic activity/Vol]14 U/L6 - 29 U/[facility] HospitalAnion gap [Moles/Vol]7 mmol/[facility] HospitalAST [Catalytic activity/Vol]12 U/L10 - 30 U/[facility] Bilirubin [Mass/Vol]0.4 mg/dL0.2 - 1.2 mg/dLUnBethesda North Hospital Calcium [Mass/Vol]9.6 mg/dL8.6 - 10.2 mg/dLUnBethesda North Hospital Chloride [Moles/Vol]102 mmol/L98 - 110 mmol/[facility] CO2 [Moles/Vol]28 mmol/L20 - 32 mmol/[facility] Creatinine [Mass/Vol]0.86 mg/dL0.50 - 0.97 mg/dLUnBethesda North HospitalGFR/1.73 sq M.predicted among non-blacks MDRD (S/P/Bld) [Vol rate/Area] 93 mL/min/{1.73_m2}> OR = 60 mL/min/1.13q8FmnvgdttmdBethesda North Hospital Glucose [Mass/Vol]90 mg/dL65 - 99 mg/dLUnBethesda North HospitalComment on above: Fasting reference interval Potassium [Moles/Vol]4.5 mmol/L3.5 - 5.3 mmol/[facility] Protein [Mass/Vol]7.4 g/dL6.1 - 8.1 g/dLUnBethesda North HospitalSodium [Moles/Vol]137 mmol/L135 - 146 mmol/[facility] HospitalUrea nitrogen [Mass/Vol]7 mg/dL7 - 25 mg/dLUnBethesda North HospitalLIPID PANEL, STANDARDon 03-95-4814Htjmdemjtui [Mass/Vol]167 mg/dLNormal<200Quest DiagnosticsComment on above:Order Comment: FASTING:YES FASTING: YESPerformed By: #### 7600, 11699, 79820, 927, 1759, 80565 #### [facility] [address], [address] [place] [address] District Traffic Chief: Brandon Camara MDCholesterol in HDL [Mass/Vol]52 mg/dLNormal> OR = 50Quest DiagnosticsComment on above:Order Comment: FASTING:YES FASTING: YESPerformed By: #### 7600, 54578, 94918, 927, 1759, 93370 #### [facility] [address] , [address] [place] [address] District Traffic Chief: Brandon Camara MDCholesterol in LDL [Mass/Vol]95 mg/dLNormal Quest DiagnosticsComment on [...] LDL-C. Tres SS et al. STEPHANIE. 2013;310(19): 5405-1889 (http://education.NeuroQuest/faq/UUW368)Performed By: #### 7600, 99335, 58740, 927, 1759, 19515 #### [facility] [address], [address] [place] [address] District Traffic Chief: Brandon MOREIRAholesterojohn.total/Cholesterol in HDL [Mass ratio]3.2 {ratio}Normal<5.0Quest DiagnosticsComment on above:Order Comment: FASTING:YES FASTING: YESPerformed By: #### 7600, 15512, 89170, 927, 1759, 70903 #### [facility] [address], [address] [place], [place] [phone] District Traffic Chief: Brandon NICOLE HDL XXRKOSBPZLK763 mg/dL (calc)Normal<130 [facility] DiagnosticsComment on above:Order Comment: FASTING:YES FASTING: YESResult Comment: For patients with diabetes plus 1 major ASCVD risk factor, treating to a non-HDL-C goal of <100 mg/dL (LDL-C of <70 mg/dL) is considered a therapeutic option.Performed By: #### 7600, 37061, 15370, 927, 1759, 45428 #### [facility] [address], [address] [place], [place] [phone] District Traffic Chief: Brandon Camara MDTriglyceride [Mass/Vol]103 mg/dLNormal<150 [facility] DiagnosticsComment on above:Order Comment: FASTING:YES FASTING: YESPerformed By: #### 7600, 71464, 87555, 927, 1753, 83331 #### [facility] [address] [facility], [address] [place] [address] District Traffic Chief: Brandon Camara MDLipid 1996 panelon 59-12-3897Wzfwtnsqjwm [Mass/Vol]167 mg/dLNINF - 200 mg/dLUnBethesda North HospitalCholesterol in HDL [Mass/Vol]52 mg/dL> OR = 50UnBethesda North HospitalCholesterol in LDL [Mass/Vol]95 mg/dLmg/dL (calc)[facility] HospitalComment on above:Reference range: <100 Desirable range <100 mg/dL for primary prevention; <70 mg/dL for patients with CHD or diabetic patients with > or = 2 CHD risk factors. LDL-C is now calculated using the Dean calculation, which is a validated novel method providing better accuracy than the Friedewald equation in the estimation of LDL-C. Tres SS et al. STEPHANIE. 2013;310(19): 8354-7112 (http://education.NeuroQuest/faq/IDL787) Cholesterol non HDL [Mass/Vol]115 mg/dLNINFMercy Hospital Comment on above:For patients with diabetes plus 1 major ASCVD risk factor, treating to a non-HDL-C goal of <100 mg/dL (LDL-C of <70 mg/dL) is considered a therapeutic option. Cholesterol.total/Cholesterol in HDL [Mass ratio]3.2 {ratio}NINRegency Hospital ToledoTriglyceride [Mass/Vol]103 mg/dLNINF - 150 mg/dLUnBethesda North HospitalNo Panel Informationon 59-99-3414WTKDWWV:YES FASTING: YESQUEST DIAGNOSTICS-CLARINDAUnBethesda North HospitalTSH W/REFLEX TO FT4on 36-90-2757WMI W/REFLEX TO FT42.63 mIU/LNormalQuest [facility] Comment on above:Result Comment: Reference Range > or = 20 Years 0.40-4.50 Ranges First trimester 0.26-2.66 Second trimester 0.55-2.73 Third trimester 0.43-2.91Performed By: #### 4590, 56562, 36660, 927, 1752, 50334 #### [facility] [address], [address] [place] [address] District Traffic Chief: Brandon Camara MDFRANCISCAN HEALTH with reflex to Free T4 if abnormalon 24-44-7345TFY Qn2.63 m[IU]/LmIU/[facility] HospitalComment on above:Reference Range > or = 20 Years 0.40-4.50 Ranges First trimester 0.26-2.66 Second trimester 0.55-2.73 Third trimester 0.43-2.91 VITAMIN B12on 74-70-2093Mdzvuhfeb (Vitamin B12) [Mass/Vol]402 pg/mLNormal 200-1100Quest DiagnosticsComment on above:Performed By: #### 7600, 86170, 79976, 408, 1093, 48294 #### [facility] [address], [address] [place] [address] District Traffic Chief: Brandon Camara MDVITAMIN D,25-OH,TOTAL,IAon 36-95-8547IUORWRG D,25-OH,TOTAL,IA26 ng/eEBgg93-794Zanpz DiagnosticsComment on above:Result Comment: Vitamin D Status 25-OH Vitamin D: Deficiency: <20 ng/mL Insufficiency: 20 - 29 ng/mL Optimal: > or = 30 ng/mL For 25-OH Vitamin D testing on patients on D2-supplementation and patients for whom quantitation of D2 and D3 fractions is required, the QuestAssureD(TM) 25-OH VIT D, (D2,D3), LC/MS/MS is recommended: order code 80289 (patients >2yrs). See Note 1 Note 1 For additional information, please refer to http://education.[employer].Netview [employer]/faq/YXB378 (This link is being provided for informational/ educational purposes only.)Performed By: #### 7600, 50992, 49169, 921, 3415, 90576 #### [facility] [address], [address] [place] [address] District Traffic Chief: Brandon Camara MDVitamin B12on 13-05-7383Dpvcodafy (Vitamin B12) [Mass/Vol]402 pg/mL200 - 1100 pg/mLUnBethesda North Hospital Quantiferon-TB Plus (Client Incubated)on 90-38-1412Rqnnt interferon background IA Qn (Bld)0.01 International_Unit/mLInvalid Interpretation [facility] MD, Cancer CenterComment on above:Performed By: #### [id number] #### [facility] [address] [place] [address]. tuberculosis stim IFN-g by CD4+ CD8+ T-cells corrected for background Qn (Bld)0.02 International_Unit/mLInvalid Interpretation CodeOhiohealth Grady Memorial HospitalComment on above:Performed By: #### [id number] #### [facility] [address] [place] [address]. tuberculosis stim IFN-g by CD4+ T-cells corrected for background Qn (Bld)0.03 International_Unit/mLInvalid Interpretation [facility] MD, Cancer CenterComment on above:Performed By: #### [id number] #### [facility] [address] [place] [address]. tuberculosis stim IFN-g Ql (Bld) [Interp]NegativeInvalid Interpretation CodeNegativeOhiohealth Grady Memorial HospitalComment on above:Result Comment: No response to [...] interferon gamma. Chemiluminescence immunoassay methodology Performed at: [facility] [address] [place] [id number] [id number] PhD Leeanne GarciaPerformed By: #### [id number] #### [facility] [address] [place], [place] [address]Mitogen stimulated gamma interferon corrected for background Qn (Bld)>10.00Invalid Interpretation [facility], MD, Cancer CenterComment on above:Performed By: #### [id number] #### [facility] [facility] [address] [place] [address] [id number] comment (Unsp spec) [Interp]CommentInvalid Interpretation [facility] MD, Cancer CenterComment on above:Result Comment: QuantiFERON-TB Gold Plus is [...] a control for the test.Performed By: #### [id number] #### [facility] [address] [place] [address] 71418Epg Bs Abon 88-50-7916RVN surface Ab Ql (S)ReactiveInvalid Interpretation [facility] MD, [facility] CenterComment on above:Result Comment: Non Reactive: Not immune to HBV infection. Equivocal: Unable to determine if anti-HBs is present at levels consistent with immunity. Reactive: Anti-HBs concentration detected at greater than 10 mIU/mL. Individual is considered to be immune to infection with HBV. Performed at: [address] [id number] PhD Leeanne Moyaformed By: #### [id number] #### [facility] [address] [place] [address] 23696Hiipzrn/Mumps/Rubella Immunityon 31-77-6063MnQ IgG IA Qn (S) 206.0 A unit/mLInvalid Interpretation CodeImmune >16.4Fisher [facility] InstituteComment on above:Result Comment: Negative <13.5 Equivocal 13.5 - 16.4 Positive >16.4 Presence of antibodies to Rubeola is presumptive evidence of immunity except when acute infection is suspected.Performed By: #### [id number] #### [facility] [address] [place] [address] 08755PkX IgG IA Qn (S)38.5 A unit/mLInvalid Interpretation Code Immune >10.9[facility] HospitalComment on above:Result Comment: Negative <9.0 Equivocal 9.0 - 10.9 Positive >10.9 A positive result generally indicates past exposure to Mumps virus or previous vaccination. Performed at: [facility] [address] [place], [place] [id number] PhD Leeanne GarciaPerformed By: #### [id number] #### [facility] [address] [place] [address] 34224Azlnlbm virus IgG Qn (S)1.07 [IU]/mLInvalid Interpretation Code Immune >0.99[facility] HospitalComment on above:Result Comment: Non- immune <0.90 Equivocal 0.90 - 0.99 Immune >0.99Performed By: #### [id number] #### [facility] [address] [place] [address] 79093Xbnoj IgGon 82-73-9024WEZ IgG IA Qn (S)1518Invalid Interpretation CodeImmune >165[facility] HospitalComment on above:Result Comment: Negative <135 Equivocal 135 - 165 Positive >165 A positive result generally indicates exposure to the pathogen or administration of specific immunoglobulins, but it is not indication of active infection or stage of disease. Performed at: [facility] [address] [place], [place] [id number] PhD Leeanne GarciaPerformed By: #### [id number] #### [facility] [address] [place] [address] 28377Axolokx Formson 53-22-8763Izieoxv Forms 100.64.203.225.1338828686307160812873V9R#1.00OTGTIFFRiverside Methodist HospitalED Clinical Summaryon 88-53-8059NH [facility] [address] [place], [place] [id number] Clinical Summary PERSON INFORMATION Name: PRINCESS GUERRERO Age: 28 Years Sex: FEMALE : 1995 MRN: Acct#: Visit Reason: Medical screening exam; OTTERBEIN PHYSICAL Arrival: 12/15/2023 11:27:18 Discharge: 12/15/2023 11:57:00 LOS: 000 00:30 Check In: 12/15/2023 11:27:18 Checkout: 12/15/2023 11:57:00 Address: [address] [place], [place] [address] PCP: Provider, None PROVIDER INFORMATION Provider Role [...] blood pressure. With: Address: When: None Provider [address] [place] [address] DIAGNOSIS: Elevated blood pressure reading; Physical exam Patient Understands: Yes - Patient/family/caregiver verbalizes understanding of instructions given Comment:[facility] HospitalED Patient Summary 91-31-8191GX Patient Summary [facility] Ur[facility] Care [address] [place] [address] PATIENT DISCHARGE INSTRUCTIONS Patient Information Name: PRINCESS [...] blood pressure. With: Address: When: None Provider [address] [place] [address] Hypertension, Adult High blood pressure (hypertension) is [...] as fish, chicken wit (more content not included)...[facility] HospitalUrgent Care Note- Provideron 80-14-1275Mwsxdw Care Note- ProviderPatient: PRINCESS GUERRERO Age: 28 years Sex: FEMALE [...] - pharynx pink and moist. NECK: -Supple (wvqr-no-kfliz): non-tender. CARD: -Rate and rhythm: Regular RESP: [...] Plan Assessment and Plan: Diagnosis: Physical exam (AKY69-JU Z00.00), Elevated blood pressure reading (DCK54-RN R03.0). Cleared for employment [Electronically Signed on: 12/15/2023 11:52 EDT] TARAS FAUSTIN [Verified on: 12/15/2023 11:52 EDT] TARAS FAUSTIN [facility] 39-10-8845[facility] [address], [place] [id number] PATIENT DISCHARGE INSTRUCTIONS Patient Information Name: PRINCESS GUERRERO Age: 28 Years Date of : 1995 Reason For Visit: ANNETTE PHYSICAL Arrival Time: 12/15/2023 11:27:18 Primary [...] blood pressure. With: Address: When: None Provider [address] [place] [address] Medication Information: The exam and treatment you received today in the [facility] were for an urgent problem and are not intended as complete care. It is important for you to follow up with a doctor, nurse practitioner, or physician?s print shop assistant for ongoing care. If your symptoms [...] so we can reach you if necessary. [facility] has provided you with a complete list of medications post discharge. Please inform your public health doctor/provider of your visit and for further instruction [...] too much fat, sugar, (more content not included)...[facility] 49-08-6155HNxfmmhtn: BS24-10 Received: 08/04/23 Status: LAZARA Lyn Num: [id number] Spec Type: Surgical Subm Dr: Willis Chen Tissues: A Placenta - 3rd Trimester (Greater than 28 weeks) (PLACENTA) Procedures: HE/3, Gross/Micro L5 Age/ Patient Sex Location Account Attending Physician Princess Cantu 27/F LABELL [id number] Willis Chen SPEC NUM: [id number] RECD: 08/04/23 STATUS: LAZARA LYN NUM: [id number] JOSE: 08/04/[address]: Willis Chen ENTERED: 08/04/23 [facility] DR: Giselle,Lab SPEC TYPE: Surgical [...] parenchyma up to 3.1 cm in thickness. Track Repair Laborer sections are submitted in 3 cassettes as follows: A1 - membranes, umbilical cord, and decidua basalis A2 - Central placenta full-thickness A3 - Peripheral placenta, full-thickness Specimen: [id number] Received: 08/04/23 Status: LAZARA Lyn Num: [id number] Spec Type: Surgical Subm Dr: Willis Chen Tissues: A Placenta - 3rd Trimester (Greater than 28 weeks) (PLACENTA) Procedures: HE/3, Gross/Micro L5 Patient: Princess Cantu [id number] (Continued) Specimen: [id number] Received: 08/04/23 (Continued) Signed (signature on file) Juliet Sykes MD 08/08/232229 Specimen: BS24- Received: 08/04/23 Status: LAZARA Lyn Num: [id number] Spec Type: Surgical Subm Dr: Willis Chen Tissues: A Placenta - 3rd Trimester (Greater than 28 weeks) (PLACENTA) Procedures: DELMY/3Jesica/Danitza L5 Patient: Princess Cantu [id number] (Continued) Specimen: BS24-10 Received: 08/04/23 (Continued) CPT Codes 90052 Specimen: BS24- Received: 08/04/23 Status: LAZARA Lyn Num: [id number] Spec Type: Surgical Subm Dr: Willis Chen Tissues: A Placenta - 3rd Trimester (Greater than 28 weeks) (PLACENTA) Procedures: DELMYJesica Ott/Danitza L5 Patient: Princess Cantu [id number] (Continued) Signed (signature on file) Juliet Sykes MD 08/08/[address] [place], [place] [address]US OB BPP W NON-STRESS on 90-65-[place] [address] Ultrasound Report Signed Patient: PRINCESS CANTU MR#: [id number] : 1995 Acct:[id number] Age/Sex: 27 / F ADM Date: 07/31/23 Loc: US Attending Dr: Willis Chen D.O. Ordering Physician: Willis Chen D.O. Date of Service: 07/31/23 Procedure(s): US OB BPP w non-stress Accession Number(s): [id number] cc: Willis Chen D.O.; Physician,Non-Staff Jake [address] [address] Patient Name: PRINCESS CANTU MRN: TBH:[id number] date: 1995 Sex: F Assigned Patient Location: US Current Patient Location: US Accession/Order Number: [id number] Exam Date: 07/31/2023 11:04 Report Date: 08/03/2023 [...] M.D. Signed By: 08/03/23719 DD/ 7 TD/TT: Network Engineering Advisor:TBHRadiology, Radiologist, - 09/22/2023 [place] [address] Ultrasound Report Signed Patient: PRINCESS CANTU MR#: [id number] : 1995 Acct:[id number] Age/Sex: 27 / F ADM Date: 07/31/23 Loc: US Attending Dr: Willis Chen D.O. Ordering Physician: Willis Chen D.O. Date of Service: 07/31/23 Procedure(s): US OB BPP w non-stress Accession Number(s): [id number] cc: Willis Chen D.O.; Physician,Non-Staff Jake [facility] [place] [id number] Patient Name: PRINCESS CANTU MRN: [id number] date: 1995 Sex: F Assigned Patient Location: US Current Patient Location: US Accession/Order Number: [id number] Exam Date: 07/31/2023 11:04 Report Date: 08/03/2023 [...] M.D. Signed By: 08/03/23719 DD/ 7 TD/TT: Network Engineering Advisor: JOSY HealthcareRadiology Study observation (narrative)NOMS HealthcareUS OB BPP W NON-STRESSOrdered By: Radiologist Radiology on 30-09-8721RKFH [employer] Work Phone: US OB BPP W NON-STRESSon [phone], [place] [address] Ultrasound Report Signed Patient: PRINCESS CANTU MR#: [id number] : 1995 Acct:[id number] Age/Sex: 27 / F ADM Date: 07/24/23 Loc: US Attending Dr: Willis Chen D.O. Ordering Physician: Willis Chen D.O. Date of Service: 07/24/23 Procedure(s): US OB BPP w non-stress Accession Number(s): [id number] cc: Willis Chen D.O.; Physician,Non-Staff M.DLima [place] [id number] Patient Name: PRINCESS CANTU MRN: [id number] date: 1995 Sex: F Assigned Patient Location: [facility] Current Patient Location: Accession/Order Number: [id number] Exam Date: 07/24/2023 08:19 Report Date: 07/26/2023 [...] M.D. Signed By: 07/26/23711 DD/ 8 TD/TT: Network Engineering Advisor:RAYNAadiologchristina, Radiologist, MD - 09/22/2023 [place] [address] Ultrasound Report Signed Patient: PRINCESS CANTU MR#: [id number] : 1995 Acct:[id number] Age/Sex: 27 / F ADM Date: 07/24/23 Loc: US Attending Dr: Willis Chen D.O. Ordering Physician: Willis Chen D.O. Date of Service: 07/24/23 Procedure(s): US OB BPP w non-stress Accession Number(s): [id number] cc: Willis Chen D.O.; Physician,Non-Staff M.No [facility] [place] [id number] Patient Name: PRINCESS CANTU MRN: [id number] date: 1995 Sex: F Assigned Patient Location: [facility] Current Patient Location: Accession/Order Number: [id number] Exam Date: 07/24/2023 08:19 Report Date: 07/26/2023 [...] M.D. Signed By: 07/26/23711 DD/ 8 TD/TT: Network Engineering Advisor: JOSY HealthcareRadiology Study observation (narrative)NOMS HealthcareUS OB BPP W NON-STRESSOrdered By: Radiologist Radiology on 14-89-6248SBOV [employer] Work Phone: US OB BPP W NON-STRESSon [phone], [place] [address] Ultrasound Report Signed Patient: PRINCESS CANTU MR#: [id number] : 1995 Acct:[id number] Age/Sex: 27 / F ADM Date: 07/17/23 Loc: US Attending Dr: Willis Chen D.O. Ordering Physician: Willis Chen D.O. Date of Service: 07/17/23 Procedure(s): US OB BPP w non-stress Accession Number(s): [id number] cc: Willis Chen D.O.; Physician,Non-Staff M.DLima [place] [address] Patient Name: PRINCESS CANTU MRN: TBH:[id number] date: 1995 Sex: F Assigned Patient Location: US Current Patient Location: Accession/Order Number: [id number] Exam Date: 07/17/2023 11:20 Report Date: 07/20/2023 [...] M.D. Signed By: 07/20/23713 DD/ 0 TD/TT: Network Engineering Advisor:TBHRadiology, Radiologist, - 09/22/2023 [place] [address] Ultrasound Report Signed Patient: PRINCESS CANTU MR#: [id number] : 1995 Acct:[id number] Age/Sex: 27 / F ADM Date: 07/17/23 Loc: US Attending Dr: Willis Chen D.O. Ordering Physician: Willis Chen D.O. Date of Service: 07/17/23 Procedure(s): US OB BPP w non-stress Accession Number(s): [id number] cc: Willis Chen D.O.; Physician,Non-Staff Jake [place] [phone] Patient Name: PRINCESS CANTU MRN: [id number] date: 1995 Sex: F Assigned Patient Location: US Current Patient Location: Accession/Order Number: [id number] Exam Date: 07/17/2023 11:20 Report Date: 07/20/2023 [...] M.D. Signed By: 07/20/23713 DD/ 0 TD/TT: Network Engineering Advisor: NOMS HealthcareRadiology Study observation (narrative)NOMS HealthcareUS OB BPP W NON-STRESSOrdered By: Radiologist Radiology on 51-03-4868KPLX Healthcare Work Phone: US OB BPP W NON-STRESSon [phone], [place] [address] Ultrasound Report Signed Patient: PRINCESS CANTU MR#: [id number] : 1995 Acct:[id number] Age/Sex: 27 / F ADM Date: 07/10/23 Loc: FBCO Attending Dr: Willis Chen D.O. Ordering Physician: Willis Chen D.O. Date of Service: 07/10/23 Procedure(s): US OB BPP w non-stress Accession Number(s): [id number] cc: Willis Chen D.O.; Physician,Non-Staff M.No [facility] [place] [phone] Patient Name: PRINCESS CANTU MRN: [facility]:[id number] date: 1995 Sex: F Assigned Patient Location: [facility] Current Patient Location: Accession/Order Number: [id number] Exam Date: 07/10/2023 14:31 Report Date: 07/11/2023 [...] Dictated By: America Draper M.D. Signed By: 07/11/230 DD/ TD/TT: Network Engineering Advisor:TBHRadiology, Radiologist, MD - 07/11/2023 [place] [address] Ultrasound Report Signed Patient: PRINCESS CANTU MR#: [id number] : 1995 Acct:[id number] Age/Sex: 27 / F ADM Date: 07/10/23 Loc: FBCO Attending Dr: Willis Chen D.O. Ordering Physician: Willis Chen D.O. Date of Service: 07/10/23 Procedure(s): US OB BPP w non-stress Accession Number(s): [id number] cc: Willis Chen D.O.; Physician,Non-Staff Jake [place] [phone] Patient Name: PRINCESS CANTU MRN: [facility]:[id number] date: 1995 Sex: F Assigned Patient Location: [facility] Current Patient Location: Accession/Order Number: [id number] Exam Date: 07/10/2023 14:31 Report Date: 07/11/2023 [...] Dictated By: America Draper M.D. Signed By: 07/11/23 0020 DD/ TD/TT: Network Engineering Advisor: JOSY HealthcareRadiology Study observation (narrative)NOMS HealthcareUS OB BPP W NON-STRESSOrdered By: Radiologist Radiology on 90-96-7371QKDO Healthcare Work Phone: US OB GROWTHon [phone], [place] [address] Ultrasound Report Signed Patient: PRINCESS CANTU MR#: [id number] : 1995 Acct:[id number] Age/Sex: 27 / F ADM Date: 07/10/23 Loc: FBCO Attending Dr: Willis Chen D.O. Ordering Physician: Willis Chen D.O. Date of Service: 07/10/23 Procedure(s): US OB growth Accession Number(s): [id number] cc: Willis Chen D.O.; Physician,Non-Staff Jake The [address] [address] Patient Name: PRINCESS CANTU MRN: TBH:[id number] date: 1995 Sex: F Assigned Patient Location: [facility] [place] [facility] [place]ion/Order Number: [id number] Exam Date: 07/10/2023 14:31 Report Date: 07/11/2023 [...] Draper M.D. Signed By: 07/11/2349 DD/ TD/TT: Network Engineering Advisor:LIZETHHRadiology, Radiologist, MD - 09/22/2023 [place] [address] Ultrasound Report Signed Patient: PRINCESS CANTU MR#: [id number] : 1995 Acct:[id number] Age/Sex: 27 / F ADM Date: 07/10/23 Loc: FBCO Attending Dr: Willis Chen D.O. Ordering Physician: Willis Chen D.O. Date of Service: 07/10/23 Procedure(s): US OB growth Accession Number(s): [id number] cc: Willis Chen D.O.; Physician,Non-Staff Jake [place] [phone] Patient Name: PRINCESS CANTU MRN: TBH:[id number] date: 1995 Sex: F Assigned Patient Location: [facility] [place] [facility] Accession/Order Number: [id number] Exam Date: 07/10/2023 14:31 Report Date: 07/11/2023 [...] Draper M.D. Signed By: 07/11/2349 DD/ TD/TT: Network Engineering Advisor: JOSY HealthcareRadiology Study observation (narrative)[facility] SystemUS OB GROWTHOrdered By: Radiologist Radiology on 15-72-5331SE[facility]X [facility] Work Phone: DHEA SERUMon 50-03-4418Cudyrqlbybcdhlxhxixtcn (DHEA) 656 ng/tIPkualk64-238FcoMorrow County HospitalComment on above:Performed By: #### DHEA. #### [facility] [address] [place] [address] Dr. Vish Mai-MULLERIAN HORMONEon 72-15-7722Hvfi-Mullerian Hormone (AMH) 4.47 ng/mLNormalMorrow County HospitalComment on above:Result Comment: For assays employing antibodies, the possibility exists for interference by heterophile antibodies in the samples.1 1.Favio Correia. Interferences in Immunoassays - still a threat. Clin. Chem. 2000; 46: 1557-4339. This test was developed and its performance characteristics determined by [employer]. It has not been cleared or approved by the Food and Drug Administration. Reference Range: Females 26 - 30y: 1.03 - 11.10 Median 4.20 AMH concentrations of >= 1.06 ng/mL is correlated with a better response to ovarian stimulation, produced more retrievable oocytes and higher odds of live according to Ryaner et al. Fertility and Sterility. 2010: 94:2804-1597. The current AMH test method correlates with [...] AMH-secreting ovarian tumor.Performed By: #### LBCLH #### [facility] [address] [place] [address] Dr. Vish Olivas-SULFATEon 69-63-4579XEQN-Hgouvti546.0 ug/dLCritically high 84.8-378.0[facility] HospitalComment on above:Performed By: #### LBCL[facility] #### [facility] [address] [place] [address] Dr. Vish CardonaTRADIOLon 93-95-4701Jifugqcjt32.3 pg/mLNormalMorrow County HospitalComment on above:Result Comment: Adult Female: Follicular phase 12.5 - 166.0 Ovulation phase 85.8 - 498.0 Luteal phase 43.8 - 211.0 Postmenopausal <6.0 - 54.7 1st trimester 215.0 - >4300.0 Ele ECLIA methodologyPerformed By: #### ESTRADI #### [facility] [address] [place] [address] Dr. Vish Monroy 81-72-6018ULA0.1 mIU/mLNormalMorrow County HospitalComment on above:Result Comment: Adult Female: Follicular phase 3.5 - 12.5 Ovulation phase 4.7 - 21.5 Luteal phase 1.7 - 7.7 Postmenopausal 25.8 - 134.8Performed By: #### LBCFSH #### [facility] [address] [place] [address] Dr. Vish BrownLUTEINIZING HORMONE (LH)on 74-12-1729LG4.5 mIU/mLNormalMorrow County HospitalComment on above:Result Comment: Adult Female: Follicular phase 2.4 - 12.6 Ovulation phase 14.0 - 95.6 Luteal phase 1.0 - 11.4 Postmenopausal 7.7 - 58.5Performed By: #### [facility]CL[facility] #### [facility] [address] [place] [address] Dr. Vish BrownPROGESTERONEon 63-74-9238Eebshuwrjnxy3.8 ng/mLNormalMorrow County HospitalComment on above:Result Comment: Follicular phase 0.1 - 0.9 Luteal phase 1.8 - 23.9 Ovulation phase 0.1 - 12.0 First trimester 11.0 - 44.3 Second trimester 25.4 - 83.3 Third trimester 58.7 - 214.0 Postmenopausal 0.0 - 0.1Performed By: #### PROGES #### [facility] [address] [place] [address] Dr. Vish Carrillo AUTO DIFFon 13-85-2756YBOI #0.0 103/ulNormal0.0-0.1Morrow County HospitalComment on above:Performed By: #### LBCL[facility] #### [facility] [address] [place] [address] Dr. Vish BrownBasophils/100 WBC (Bld)0.5 %Normal0.2-2.0[facility] Comment on above:Performed By: #### LBCLH #### [facility] [address] [place] [address] Dr. Vish Layton #0.3 103/ulNormal0.0-0.7The [facility] Medical CenterComment on above: Performed By: #### LBCLH #### [facility] [address] [place] [address] Dr. Vish Haqosinophils/100 WBC (Bld)4.0 %Normal0.9-7.0[facility] Comment on above:Performed By: #### [facility]CL[facility] #### [facility] [address] [place] [address] Dr. Yilan ChangErythrocyte distribution width (RBC) [Ratio]12.0 %Dejirq01.0-15.0 The [facility] Medical CenterComment on above:Performed By: #### [facility]CL[facility] #### [facility] [address] [place] [address] Dr. Vish BrownHematocrit (Bld) [Volume fraction]39.1 %Kpuzwx88.0-48.0The [facility] Medical CenterComment on above:Performed By: #### [facility]CL[facility] #### [facility] [address] [place] [address] Dr. Vish BrownHemoglobin (Bld) [Mass/Vol]13.0 g/jMOrdfeg43.0-16.0The [facility] CenterComment on above:Performed By: #### LBCLH #### [facility] [address] [place] [address] Dr. Vish Lawson #0.02 10e3/ulNormal0.00-0.03The [facility] Medical CenterComcaro center on above:Performed By: #### LBCLH #### [facility] [address] [place] [address] Dr. Vish Lawson %0.3 %Normal0.0-0.5The [facility] Medical CenterComcaro center on above: Performed By: #### [facility]CL[facility] #### [facility] [address] [place] [address] Dr. Vish AvilezH #2.5 103/ulNormal1.2-3.8The [facility] CenterComcaro center on above:Performed By: #### [facility]CL[facility] #### [facility] [address] [place] [address] Dr. Vish Jaffemphocytes/100 WBC (Bld)32.4 %Ijxfxo32.5-60.0The [facility] CenterComment on above:Performed By: #### [facility] #### [facility] [address] [place] [address] Dr. Vish BrownMANUAL DIFF REQNONormalThe [facility] CenterComment on above: Performed By: #### [facility]CL[facility] #### [facility] [address] [place] [address] Dr. Vish Smith (RBC) [Entitic mass]29.9 oqSckfph99.7-34.0The [facility] Medical CenterComment on above:Performed By: #### LBCL[facility] #### [facility] [address] [place] [address] Dr. Vish Smith (RBC) [Mass/Vol]33.2 g/aDKnsccg16.9-35.2The [facility] HospitalComment on above:Performed By: #### LBCL[facility] #### [facility] [address] [place] [address] Dr. Vish Smith (RBC) [Entitic vol]89.9 qDSowqhx39.0-99.0The [facility] CenterComment on above:Performed By: #### LBCL[facility] #### [facility] [address] [place] [address] Dr. Vish Power #0.6 103/ulNormal0.3-0.8The [facility] CenterComment on above:Performed By: #### LBCL #### [facility] [address] [place] [address] Dr. Vish Vigilocytes/100 WBC (Bld)7.4 %Normal1.7-12.0The [facility] Comment on above:Performed By: #### LBCL #### [facility] [address] [place] [address] Dr. Vish Pulliam #4.3 103/ulNormal1.4-6.5The [facility] CenterComment on above:Performed By: #### [facility]CL[facility] #### [facility] [address] [place] [address] Dr. Vish Lamarutrophils/100 WBC (Bld)55.4 %Zkwvpp25.0-75.0The [facility] CenterComment on above:Performed By: #### [facility]CL[facility] #### [facility] [address] [place] [address] Dr. Vish Madisonlet mean volume (Bld) [Entitic vol]9.0 fLCritically low 9.5-13.5The [facility] CenterComment on above:Performed By: #### [facility]CL[facility] #### [facility] [address] [place] [address] Dr. Vish BrownPLT277 103/raFyqwkh679-212Fwg [facility] CenterComment on above: Performed By: #### [facility] #### [facility] [address] [place] [address] Dr. Vish BrownRBC4.35 106/ulNormal4.20-5.40The [facility] CenterComment on above:Performed By: #### [facility] #### [facility] [facility] [address] [place] [address] Dr. Vish BrownWBC7.7 103/ulNormal4.0-11.0The [facility]al Medical CenterComment on above: Performed By: #### LBCLH #### [facility] [address] [place] [address] Dr. Vish BrownFRIRENA T4on 82-79-3497Zntw T4 [Mass/Vol]1.08 ng/dLNormal0.76-1.46 The [facility] Medical CenterComment on above:Performed By: #### FT4 #### [facility] [address] [place] [address] Dr. Vish BrownGLYCOHEMOGLOBIN A1Con 65-63-2958OMA RECOMMENDATIONSEE BELOWNormal The [facility] Medical CenterComcaro center on above:Result Comment: ADA RECOMMENDED LIMIT 4.0 - 6.0 ADA THERAPEUTIC TARGET < 7.0 ACTION SUGGESTED > 7.0Performed By: #### A1C #### [facility] [address] [place] [address] Dr. Vish BrownGlucose [Mass/Vol]94 mg/dLNormalThe [facility] Medical CenterComcaro center on above:Performed By: #### A1C #### [facility] [address] [place] [address] Dr. Vish BrownHbA1c (Bld) [Mass fraction]4.9 %Normal4.5-6.2The [facility] Medical CenterComment on above:Performed By: #### A1C #### [facility] [address] [place] [address] Dr. Vish BrownPREBhargav QUANT HCGon 18-07-9013ECN QUANT<1NormalThe [facility] Comment on above:Performed By: #### PREGQNT, TSH #### [facility] [address] [place] [address] Dr. Vish WesleyG RANGESThe Jewish HospitalComment on above: Result Comment: 5-50 0.2-1 WEEK 50-500 1-2 WEEKS 100-5,000 2-3 WEEKS 500-10,000 3-4 WEEKS 1,000-50,000 4-5 WEEKS 10,000-100,000 5-6 WEEKS 15,000-200,000 6-8 WEEKS 10,000-100,000 2-3 MONTHSPerformed By: #### PREGQNT, TSH #### [facility] [address] [place] [address] Dr. Vish Boo 29-23-7938TMM4.030 uIU/mLNormal0.358-3.740Morrow County HospitalComment on above:Performed By: #### PREGQNT, TSH #### [facility] [address] [place] [address] Dr. Vish Massey 19-49 Yearson 00-55-6238VG 19-49 YearsDiagnoses/Problems Health Maintenance/Risks Encounter for preventive [...] Services - Lab To Draw (Blood Test); Due:[id number];Ordered; For:Benign essential hypertension; Ordered By:Koffi Uriarte; Provider [...] alcohol (more content not included)...NormalUH TouchworksTobacco Screening.on 84-87-1265Jpsmz depression screening waorkmmrhfMjYQ-KHSH-[place] Work Phone: Fall risk assessmenta) No falls within the last year RF-CJNR-EatdWindGen Power Products Work Phone: Tobacco use status CPHSb) IyWW-GEDH-SqeuWindGen Power Products Work Phone: b-HCG SerPl-aCncon 02-31-3988LPV.beta subunit Qn m[IU]/mLNormal<5.0[facility] on above:Order Comment: Specimen Type: BLOOD SPECIMENOrdering Facility: [facility] Address:[address] [place], [place] [address]Result Comment: Negative Performed By: #### GCCT #### [place] [address] JXBSLUEMK VAGINOSIS AMPLIFICATIONon 25-18-0425Awlkmvlvtokaz crispatus+gasseri+jensenii + Gardnerella vaginalis + Atopobium vaginae rRNA HUMERA+probeQl (Vag fld)NegativeNormalNegative for bacterial vaginosisCKettering Health Dayton on above:Order Comment: Specimen Type: SWAB [facility] Address: [address] [place], [place] [address]Performed By: #### CVTV, BVAMP #### [facility] CLIA [id number] [address] [place], [place] [address]C. trachomatis+N. gonorrhoeae DNA HUMERA+probe Ql (Unsp spec)on 04-16-2022. trachomatis DNA HUMERA+probe Ql (Unsp spec)NegativeNormalNegative for Chlamydia trachomatis by amplificatonCKettering Health Dayton on above:Order Comment: Specimen Type: SWAB [facility] Address: [address] [place], [place] [address]Performed By: #### CVTV, BVAMP #### [facility] CLIA [id number] [address] [place] [address] OF TUNISIAN. gonorrhoeae DNA HUMERA+probe Ql (Unsp spec)NegativeNormalNegative for Neisseria gonorrhoeae by amplification [facility] on above:Order Comment: Specimen Type: SWAB [facility] Address: [address] [place] [address]Performed By: #### CVTV, BVAMP #### [facility] CLIA [id number] [address] [place] [address] [place] AMERICACANDIDA / TRICHOMONAS AMPLIFICATIONon 00-40-0445XQRNMMQ / TRICHOMONAS AMPLIFICATIONCANDIDA SPECIES GROUP RNA: Negative for Mitch species MITCH GLABRATA RNA: Negative for Mitch glabrata TRICH VAG AMPLIFICATION RNA: Negative for Trichomonas vaginalis by amplificationOur Lady of [facility] on above:Performed By: #### CVTV, BVAMP #### [facility] CLIA [id number] [address] [place] [address] [place] OF AMERICACNCOon 20-30-2428LFRGYacgbw Text Letter TextNoUC West Chester HospitalCNOVon 61-96-9375WGGLTzspey Visit (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 IBrendan, have reviewed this information as documented for accuracy and performed all elements of history taking, and edited the record as necessary. ROS: SEE HPI PE: GENERAL: well-appearing, in no acute distress LUNGS: Normal inspiratory effort PHYSICIAN OPHTHALMOLOGIST: Normal external genitalia, no vaginal bleeding, small [...] Order(s):MITCH / TRICHOMONAS AMPLIFICATION [SQCVTV] Order #: [id number]. #:[id number] BACTERIAL VAGINOSIS AMPLIFICATION [SQBVAMP] Order #: [id number]. #:[id number] GC/CHLAMYDIA DNA DET [SQGCCAMP] Order #: [id number]. #:[id number] SYPHILIS TOTAL W/REFLEX [SQSYPHTX] Order #: [id number] FUTURE HIV 1 2 COMBO(AG/AB),WITH REFLEX TO DIFFERENTIATION [SQHIV12] Order #: [id number] FUTURE HEP C AB IA W/CONF SCRN [LYSYEY6A] Order #: [id number] FUTURE HEP B SURF AG SCRN [SQHBSAG] Order #: [id number] FUTURE Prescriptions as of 04/16/2022 - lamoTRIgine [...] medication Encounter Status:Closed by BRENDAN BLANKENSHIP on 04/16/22NoUC West Chester HospitalHBV surface Ab IA Ql (S)on 18-19-7715TEE surface Ag Ql (S)Negative NormalNegativeUC [facility] on above:Order Comment: Specimen Type: BLOOD SPECIMENOrdering Facility: [facility] Address:[address] [place], [place] [address]Performed By: #### GCCT #### [place] [phone] Ab Ser Qlon 49-38-8403ICJ Ab Ql (S)NegativeNormalNegative [facility] on above:Order Comment: Specimen Type: BLOOD SPECIMEN [facility] Address: [address] [place], [place] [address]Result Comment: The result suggests no evidence of active infection with Hepatitis C virus. Should recent infection be suspected, repeat testing may be considered 4-6 weeks after this draw.Performed By: #### [id number] #### [facility] CLIA [id number] [address] [place] [address] [place] OF AMERICAHIV 1+2 Ab IA Qlon 36-34-9225AUR 1 and 2 Ab IA.rapid NomOur Lady of [facility] on above:Order Comment: Specimen Type: BLOOD SPECIMENOrdering Facility: [facility] Address:[address] [place], [place] [address]Result Comment: Test not indicated.Performed By: #### GCCT #### [place] [address] VID 1+2 Ab+HIV1 p24 Ag IA QlNon-ReactiveNormalNonreactiveUC [facility] on above:Order Comment: Specimen Type: BLOOD SPECIMENOrdering Facility: [facility] Address:[address] [place], [place] [address]Performed By: #### GCCT #### [place] [address] QXGWTYBcdeoxFxkjtjyoa Clinic ClevelandComment on above:Order Comment: Specimen Type: BLOOD SPECIMENOrdering Facility: [facility] Address:[address] [place], [place] [address]Result Comment: No evidence of HIV-1 or HIV-2 infection. Should recent infection be suspected, repeat testing may be considered 2-3 weeks after this draw. [place] Rev. Code 3701.243(E): This information has been [...] results or diagnoses.Performed By: #### GCCT #### [place] [address] Iocyhn and Treponema pallidum IgG and IgM [Interp]on 04-16-2022 SYPHILIS INTERPRETATIONCannot exclude recent Treponemal infection if specimen collected within 7-10 days after appearance of suspect lesions or 2-3 weeks after an exposure. Clinical correlation is required.NormalUC [facility] on above:Order Comment: Specimen Type: BLOOD SPECIMENOrdering Facility: [facility] Address:[address] [place], [place] [address]Performed By: #### GCCT #### [place] [phone]. pallidum IgG+IgM IA Ql (S)Non-ReactiveNormalNonreactiveUC [facility] on above:Order Comment: Specimen Type: BLOOD SPECIMENOrdering Facility: [facility] Address:[address] [place], [place] [address]Performed By: #### GCCT #### [place] [address] NRSCBJLJCFybjrwy By: SYSTEM SYSTEM on 72-05-8725WPT.beta subunit Qn1 m[IU]/mLNormal1 - 3 mIU/mLFTMC RemisolCNPNon 58-79-1160ZESHKlwodlgna ([facility] PRINCESS CANTU ([id number]) 1995 F Date Time Provider Department 03/24/22 [facility] During your visit today, we recorded [...] Fully Assessed Reason for Visit: Bleeding With [80975] Primary Visit Diagnosis:Bleeding in early [O20.9] Order(s):HCG QUANTITATIVE [SQHCGQT] Order #: [id number] FUTURE Prescriptions as of 03/24/2022 - metroNIDAZOLE [...] 07/04/2021 Encounter Status:Closed by BRENDAN SOUZA on 03/24/22[facility] 19-76-4212OXJMHnaasuimz (OBGYCC) PRINCESS CANTU ([id number]) 1995 F Date Time Provider Department 03/19/22 [place] [facility] During your visit today, we recorded the following information about you: Mary Onofre RN 03/19/2022 8:52 AM Signed LMP 02/11, +hpt. Assisted w initial OBV. Advised to take vitamin w folic acid. First trimester precautions provided. handbook sent in . Allergies As of Date: 03/19/2022 (No Known Allergies) Date Reviewed: 09/09/2021 Reviewed by: Brendna Blankenship PA-C - Fully Assessed Reason for [...] 07/04/2021 Encounter Status:Closed by MARY ONOFRE on [facility]/19/22[facility])on 04-35-8672Oamhuj-up visitProvider Impressions 1. Seizure: Stable. Last episode [...] or bowel/bladder incontinence. She was taken to [facility] in [place]. She had lab work and a CT [...] DAILY. Vitals Vital Signs Recorded: 24Dec2021 11:32AM Bobqrrotfhh24.1 F Heart Rate54 Ddmxbbfe562 Myjlmxzcc54 Height5 ft 9 in Tkqprt164 lb 1.6 oz BMI Mbdawgjjgj50.03 kg/m2 BSA Calculated2.11 Tobacco Useb) No Fall Screeninga) No falls within the last year O2 Iyfolhhadn462, RA Physical Exam Constitutional: General appearance: no [...] Dec 24 2021 11:37AM EST (Author) Normal TouchworksTobacco Screening.on 31-63-9188Qjwf risk assessmenta) No falls within the last fdfbZR-Qatemjiak-Kbdehyos SJW DO Work Phone: Tobacco use status CPHSb) EcRV-Wbidcimbf-Ovukybbs SJW DO Work Phone: Office Visit (Primary [...] Known Drug Allergies Vitals Vital Signs Recorded: 17Ktl6530 01:08PM Temperature: 97 F Heart Rate: 70 [...] 17 2021 1:34PM EST (Author)NormalUH TouchworksTobacco Screening.on 16-33-5333Zscqo depression screening jxulozwzcfFcKX-ZQJU-[place]vvc [place] Work Phone: Fall risk assessmenta) No falls within the last year BP-QRXV-DjafWindGen Power Products Work Phone: Tobacco use status CPHSb) JoLD-BWZL-AodwWindGen Power Products Work Phone: bact Vag Amplificationon 13-98-8267Vlne Vag AmplificationPositiveCritically abnormalNegative for bacterial vaginosis [facility]c Medical CenterComment on above:Performed By: #### GCCT #### [facility] [employer] [address] [place], [place] [address] QFKFfa 03-89-5163WAKVKpbdbw 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 Portions of this record were documented by the Head Up Operator. I, Brendan Blankenship, have reviewed this information as documented for accuracy and performed all elements of history taking, and edited the record as necessary. ROS: SEE HPI PE: GENERAL: well-appearing, in no acute distress LUNGS: Normal inspiratory effort PHYSICIAN OPHTHALMOLOGIST: Small amount yellow mucus discharge, cervix NL. [...] Order(s):MITCH / TRICHOMONAS AMPLIFICATION [SQCVTV] Order #: [id number] BACTERIAL VAGINOSIS AMPLIFICATION [SQBVAMP] Order #: [id number] GC/CHLAMYDIA DNA DET [SQGCCAMP] Order #: [id number] metroNIDAZOLE (FLAGYL) 500 mg tabletTake 1 tablet [...] Letter Text Encounter Status:Closed (more content not included)...NormalUc Medical CenterCandida Trich Amplon 54-83-7322Jnxasas glabrata RNANegativeNormal NegativeUc Medical CenterComment on above:Performed By: #### GCCT #### [place] [address] Yqdpkzo sp group RNANegativeNormalNegativeUc Medical Center Comment on above:Performed By: #### GCCT #### [place] [address] Rhaprngnkek RNANegativeNormalCSelect Medical Specialty Hospital - Cleveland-FairhillComment on above:Performed By: #### GCCT #### [place] [phone]/Chlamydia Amplifon 71-49-1133Hzfpyrmmu AmplifNegativeNormal Uc Medical CenterComment on above:Performed By: #### GCCT #### [place] [address] IY AmplificationNegativeNormalCSelect Medical Specialty Hospital - Cleveland-FairhillComment on above:Performed By: #### GCCT #### [place] [phone]/Chlam Amp SourceCervixNormalClevelFormerly [facility] & Vidant Medical CenterComment on above:Performed By: #### GCCT #### [facility] [place] [id number] [phone] Vag Amplificationon 04-20-2906Weuy Vag AmplificationNegative NormalNegative for bacterial vaginosisCSelect Medical Specialty Hospital - Cleveland-FairhillComment on above:Performed By: #### CVTV, BVAMP #### [facility] CLIA [id number] [address] [place] [address] OF [facility] TRIPOINT MEDICAL CENTERCNOVon 43-65-8066NNNJVhrymp Visit (OBGYCC) PRINCESS CANTU ([id number]) [address] [facility] Date Time Provider Department 07/04/21 4:00 PM [facility] During your visit today, we recorded the following information about you: Pulse Blood pressure Weight Height 74/minute 131/86 95.7 kg 1.727 m Last Period 06/07/21 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 APRN.DROP WIRE OPERATOR 07/04/2021 4:39 PM Signed Princess is [...] Ectopic0 Multiple0 Live Births0 Comment: Menarche 10 Car Varnisher History LMP: 06/07/2021 (Exact Date), Having periods Age at Menarche: Age at First : Age at Menopause: Car Varnisher History Comments: Sexual Activity: Yes; Male; same [...] external genitalia normal, normal Bartholin's glands, urethra, Marquette's glands, no vulvar lesions, no cervical lesions, [...] type of detergents for washing undergarments, wiping prmlc-xc-wazd, sleep in loose shorts without underwear, shower [...] health screening schedule is recommended by the [employer] (ACOG). Some of these tests may be ordered or performed by your primary care doctor. Pap test screening The pap test loo (more content not included)...NormalUc Medical Center Mitch Trich Amplon 31-50-6145Eohtqle glabrata RNANegativeNormalNegative Uc Medical CenterComment on above:Performed By: #### CVTV, BVAMP #### [facility] CLIA [id number] [address] [place] [address] [place] OF AMERICACandida sp group RNANegative NormalNegativeUc Medical CenterComment on above:Performed By: #### CVTV, BVAMP #### [facility] CLIA [id number] [address] [place] [address] [place] OF AMERICATrichomonas RNANegative NormalUc Medical CenterComment on above:Performed By: #### CVTV, BVAMP #### [facility] CLIA [id number] [address] [place] [address] STATES OF AMERICAGC/Chlamydia Amplifon 16-68-9862Hilpdzxwe AmplifNegativeNormalCSelect Medical Specialty Hospital - Cleveland-FairhillComment on above:Performed By: #### GCCT #### [place] [phone] AmplificationNegativeNormalCSelect Medical Specialty Hospital - Cleveland-FairhillComment on above:Performed By: #### GCCT #### [place] [phone]/Chlam Amp SourceCervixNormalCSelect Medical Specialty Hospital - Cleveland-FairhillComment on above:Performed By: #### GCCT #### [place] [phone] Screening.on 87-59-2144Huuw risk assessmenta) No falls within the last mlchQC-Bivfakzrg-Vxealaaf [employer] net[employer] Work Phone: Tobacco use status CPHSb) OvZU-Uhinknowc-Wlihieiv [employer] Work Phone: GC + Chlamydia By Amplified Detectionon 05-20-2021. trachomatis rRNA HUMERA+probe Ql (Unsp spec)NxrodyxnDgceijwnTY-PQZH-[place]m [place] Work Phone: comment on above:The APTIMA Combo 2 assay is FDA- approved for Chlamydia trachomatis and Neisseria gonorrhoeae testing on female endocervical and vaginal swabs, ThinPrep liquid pap samples, male urine samples and urethral swabs. Performance characteristics for Chlamydia trachomatis and Neisseria gonorrhoeae testing on specific xwu-AEO-hhwyysoe sample types (female urine samples) have been validated by [facility]. This laboratory is certified by CLIA to perform high complexity evie ting. Samples from all other sites are not validated for this method.N. gonorrhoeae rRNA HUMERA+probe Ql (Unsp spec)OtakpmwlXnxtxrtjXS-IBCV-Whtn [place] Work Phone: comment on above:SOURCE: Urine The APTIMA Combo 2 assay is FDA-approved for Chlamydia trachomatis and Neisseria gonorrhoeae testing on female endocervical and vaginal swabs, ThinPrep liquid pap samples, male urine samples and urethral swabs. Performance characteristics for Chlamydia trachomatis and Neisseria gonorrhoeae testing on specific vvr-XJQ-ddzpdrcs sample types (female urine samples) have been validated by [facility]. This laboratory is certified by CLIA to perform high complexity testing. Samples from all other sites are not validated for this method.TSHon 02-77-3854ZSY Qn2.30 m[IU]/LNormal0.44 - 3.98St. Select Specialty HospitalComment on above:Result Comment: TSH testing is performed using different testing methodology at [facility] than at other [facility]. Direct result comparisons should only be made within the same method.Performed By: #### TSH2 #### [address] [place], [place] [address]ZOL - Thyroid Stimulating Hormone, Serumon 36-41-4315YGE Qn 2.30 m[IU]/LSee QqchlZN-ZATY-Mxwz [place] Work Phone: comment on above:Reference Range: 0.44 - 3.98 TSH testing is performed using different testing methodology at [facility] than at other [facility]. Direct result comparisons should only be made within the same method.Tobacco Screening.on 02-57-7540Thvv risk assessment a) No falls within the last ijpkQM-DVXC-[place]umv [place] Work Phone: Tobacco use status CPHSb) AnNX-UMMT-Gphu [place] Work Phone: cBCon 36-12-3564Xchrqrwjfrx distribution width (RBC) [Ratio]13.2 %Eadpsv72.5 - 14.5St. [facility] Specialty HospitalComment on above:Performed By: #### CBC #### [address] [place], [place] [address]Nusdnmrccp (Bld) [Volume fraction]39.5 %Sgrbmf27.0 - 46.0St. [facility] Specialty HospitalComment on above:Performed By: #### CBC #### [address] [address]Jghdrnojnl (Bld) [Mass/Vol]13.0 g/rUUtzalu89.0 - 16.0St. [facility] Specialty HospitalComment on above:Performed By: #### CBC #### [address] [address]RUXS (RBC) [Mass/Vol]32.9 g/nQLqnpbu81.0 - 36.0St. [facility]ty HospitalComment on above:Performed By: #### CBC #### [address] [address]GYP (RBC) [Entitic vol]91 pTQfauii09 - 100St. [facility] Specialty HospitalComment on above:Performed By: #### CBC #### [address] [address]MGCWKMAXJ RBC0.0 /100 WBCNormal0.0 - 0.0St. [facility] Specialty HospitalComment on above:Performed By: #### CBC #### [address] [address]Pijyswnkd (Bld) [#/Vol]235 10*3/aVHsivzs378 - 450St. [facility] Specialty HospitalComment on above:Performed By: #### CBC #### [address] [address]OCO6.33 x10E12/LNormal4.00 - 5.20[facility] Comment on above:Performed By: #### CBC #### [address] [address]AMU (Bld) [#/Vol]5.8 10*3/uLNormal4.4 - 11.3St. [facility] HospitalComment on above:Performed By: #### CBC #### [address] [address]LPXPXTQNPPQVX PANELon 69-48-4849Oozwmod [Mass/Vol]4.7 g/dL Normal3.4 - 5.0St. [facility]ty HospitalComment on above:Performed By: #### CMP #### [address] [place], [place] [address]QZL [Catalytic activity/Vol]53 U/ZJwqrix33 - 110St. [facility] Specialty HospitalComment on above:Performed By: #### CMP #### [address] [place], [place] [address]HIX [Catalytic activity/Vol]41 U/LNormal7 - 45St. [facility] Specialty HospitalComment on above:Result Comment: Patients treated with Sulfasalazine may generate falsely decreased results for ALT.Performed By: #### CMP #### [address] [address]Yhqfd gap [Moles/Vol]10 mmol/GLrjrwa13 - 20St. [facility]ty HospitalComment on above:Performed By: #### CMP #### [address] [address]RRB [Catalytic activity/Vol]27 U/LNormal9 - 39St. [facility] HospitalComment on above:Performed By: #### CMP #### [address] [address]Dbkftlvcm [Mass/Vol]0.6 mg/dLNormal0.0 - 1.2St. [facility] HospitalComment on above:Performed By: #### CMP #### [address] [address]Ufragun [Mass/Vol]9.5 mg/dLNormal8.6 - 10.3St. [facility]ty HospitalComment on above:Performed By: #### CMP #### [address] [address]Ywzkasae [Moles/Vol]105 mmol/MLarxfz63 - 107St. [facility] HospitalComment on above:Performed By: #### CMP #### [address] [address]Tlilryyakj [Mass/Vol]0.93 mg/dLNormal0.50 - 1.05St. [facility] HospitalComment on above:Performed By: #### CMP #### [address] [place], [place] [address]LJI-LCAPJWT AM.>60Normal>60St. [facility] HospitalComment on above:Result Comment: CALCULATIONS OF ESTIMATED GFR ARE PERFORMED USING THE MDRD STUDY EQUATION FOR THE IDMS-TRACEABLE CREATININE METHODS. CLIN CHEM 2007;53:766-72Performed By: #### CMP #### [address] [place], [place] [address]TKD-TRT AM.>60Normal>60St. [facility] HospitalComment on above:Performed By: #### CMP #### [address] [place], [place] [address]Puzngwo [Mass/Vol]94 mg/vBMadfxb64 - 99[facility] Comment on above:Performed By: #### CMP #### [address] [place], [place] [address]YUW3 (Bld) [Moles/Vol]28 mmol/NCowyxi12 - 32St. [facility] HospitalComment on above:Performed By: #### CMP #### [address] [place], [place] [address]Henqkozfv [Moles/Vol]4.4 mmol/LNormal3.5 - 5.3St. [facility] HospitalComment on above:Performed By: #### CMP #### [address] [place], [place] [address]Hzblvaw [Mass/Vol]7.3 g/dLNormal6.4 - 8.2St. [facility] HospitalComment on above:Performed By: #### CMP #### [address] [place], [place] [address]Qhicqy [Moles/Vol]139 mmol/DNfqyzc983 - 145St. [facility] HospitalComment on above:Performed By: #### CMP #### [address] [place], [place] [address]Ksgd nitrogen [Mass/Vol]13 mg/dLNormal6 - 23St. [facility] HospitalComment on above:Performed By: #### CMP #### [place] [address] [facility] [place], [place] [address]Piiasqpsizxb 30-57-3502Uaoforqbjr (Bld) [Volume fraction]39.5 %See VvhlhQL-Pevzvtsri-Kjrxtnfm SJW DO Work Phone: Comment on above:Reference Range: 36.0 - 46.0 Hemoglobin (Bld) [Mass/Vol]13.0 g/dLSee GtrhuPA-Xdgexujvr-Cchahjzr SJW DO Work Phone: Comment on above:Reference Range: 12.0 - 16.0MCV (RBC) [Entitic vol]91 fL80 - 746DL-Xvxfecgys-Lbdejnzd SJW DO Work Phone: Platelets (Bld) [#/Vol]235 {x10E9/L}150 - 450 QV-Wzgyhitlo-NpvezbbvHahnemann Hospital DO Work Phone: RBC (Bld) [#/Vol]4.33 {x10E12/L}See Below FC-Ghjeuduez-WpcnceowHahnemann Hospital DO Work Phone: Comment on above:Reference Range: 4.00 - 5.20WBC (Bld) [#/Vol]5.8 {x10E9/L}4.4 - 11.2ZQ-Xuuhyxypt-Htipwatw SJW DO Work Phone: WBC (Bld) [#/Vol]0.0 {/100_WBC}0.0 - 0.0 GE-Uuitfwqux-WioubochHahnemann Hospital DO Work Phone: LAMOTRIGINE- LAMICTALon [id number]- LAMICTAL6.4 ug/mLNormal2.5 - 15.0[facility] – NormanComment on above: Performed By: #### LAMOT #### [facility] [address] [place], [place] [address]Xmrtfxzdwfb Level, Serumon 50-29-5254Xqpuqbnhwrq [Mass/Vol] 6.4 ug/mL2.5 - 15.6ZD-Evzdrhemx-Tfjdfxmw SJW DO Work Phone: [phone] Panelon 62-17-5538KIV [Catalytic activity/Vol]53 U/L33 - 840ZH-Odmyqrhcs-Tymgproh SJW DO Work Phone: [phone] gap [Moles/Vol]10 mmol/L10 - 20 RU-Knqfgmkqd-Tnqhqskx SJW DO Work Phone: [phone] [Mass/Vol]0.6 mg/dL0.0 - 1.2 QB-Uwgvtfmzm-Itrhmzce SJW DO Work Phone: [phone] [Mass/Vol]9.5 mg/dL8.6 - 10.3 NT-Cvgdifakt-Urkdxdwq SJW DO Work Phone: [phone] [Moles/Vol]105 mmol/L98 - 107 FP-Zrziahahx-Uzlrawii SJW DO Work Phone: [phone] [Moles/Vol]28 mmol/L21 - 83PS-Agjkxlfnx-Xiagscjp SJW DO Work Phone: [phone] [Mass/Vol]0.93 mg/dLSee Below DN-Gwpcnjnut-Aobswpwo SJW DO Work Phone: Comment on above:Reference Range: 0.50 - 1.05Glucose [Mass/Vol]94 mg/dL74 - 26CH-Cpnpmobqq-Kzgntefo SJW DO Work Phone: [phone] [Moles/Vol]4.4 mmol/L3.5 - 5.3 HP-Fgxryjaev-Snqbjroa SJW DO Work Phone: [phone] [Mass/Vol]7.3 g/dL6.4 - 8.2 WZ-Iqdwkyacu-Jlwrjhga SJW DO Work Phone: [phone] [Moles/Vol]139 mmol/L136 - 145 CN-Qftgcenrk-Kgddnlvw SJW DO Work Phone: [phone] nitrogen [Mass/Vol]13 mg/dL6 - 23 PF-Soytiyole-Gdfflsue SJW DO Work Phone: [phone] 55-71-8637Jwcrvxp BCP dye [Mass/Vol]4.7 g/dL 3.4 - 5.3HU-Bmkvpuqzl-GicvymclSouth [facility] DO Work Phone: ALT With P-5'-P [Catalytic activity/Vol]41 U/L7 - 45 [facility] DO Work Phone: Comment on above:Patients treated with Sulfasalazine may generate falsely decreased results for ALT.AST With P-5'-P [Catalytic activity/Vol]27 U/L9 - 61SO-Wenqcupsg-VxdvujxwSouth [facility] DO Work Phone: Erythrocyte distribution width (RBC) [Ratio]13.2 %See QkoxcJL-Lnazwgbwl-Niiuyham SJW DO Work Phone: Comment on above:Reference Range: 11.5 - 14.5MCHC (RBC) [Mass/Vol]32.9 g/dLSee VpivvXS-Ahxkqhfqr-Rywqahbr SJW DO Work Phone: Comment on above:Reference Range: 32.0 - 36.0>60>60 [facility] DO Work Phone: Comment on above:CALCULATIONS OF ESTIMATED GFR ARE PERFORMED USING THE MDRD STUDY EQUATION FOR THE IDMS-TRACEABLE CREATININE METHODS. CLIN CHEM 2007;53:766-72MRI BRAIN W WO CONTRASTon 82-97-5709Igglb are no acute intracranial changes, no evidence of ischemia or hemorrhage. There are no regions of signal abnormality. There are no areas of abnormal enhancement after contrast administration.[facility], KYEXAMINATION: MRI BRAIN W WO CONTRAST CLINICAL [...] limits. The calvarium and soft tissues are unremarkable.[facility] [place], [place], [facility] Incoming Radiant Results From [employer] - 05/09/2020 3:02 PM EDT EXAMINATION: MRI [...] no areas of abnormal enhancement after contrast administration.[facility], KYBEAUMONT [facility] BRAIN W WO CONTRASTEXAMINATION: MRI BRAIN W [...] Signed by: David Winter MD 05/09/20 Final resultNormNorthern Colorado Rehabilitation Hospital With Platelet and Differentialon 96-47-1267Rpicwwcco (Bld) [#/Vol]0.1 10*3/uLNormal0.0-0.2Mcleveland clinic avon hospitaly [facility] Run Behavioral HealthComment on above:Performed By: #### CBCWD #### [facility] [address] [place] [address] Agidokglz/100 WBC (Bld)0.4 %NormalMercy Health Tiffin HospitalComment on above:Performed By: #### CBCWD #### [facility] [address] [place] [address] Guxwdpdyxyz (Bld) [#/Vol]0.5 10*3/uLNormal0.0-0.7Mer[facility] Health Tiffin HospitalComment on above:Performed By: #### CBCWD #### [facility] [address] [place] [address] Vkmsdedtjao/100 WBC (Bld)4.2 %Prosser Memorial HospitalComment on above:Performed By: #### CBCWD #### [facility] [address] [place] [address] Wodgxpbaksl distribution width (RBC) [Ratio]12.5 %Mseudq01.5-14.5 [facility] Tiffin HospitalComment on above:Performed By: #### CBCWD #### [facility] [address] [place] [address] Kmoyfzoagp (Bld) [Volume fraction]39.4 %Gagkem52.0-47.0Mer[facility] Health Tiffin HospitalComment on above:Performed By: #### CBCWD #### [facility] [address] [address] Vpvnemcivx (Bld) [Mass/Vol]13.3 g/kDVmzfth10.0-16.0Mer[facility] Tiffin HospitalComment on above:Performed By: #### CBCWD #### [facility] [address] [address] Jsaaxkvyvkj (Bld) [#/Vol]3.2 10*3/uLNormal1.0-4.8Mer[facility] Tiffin HospitalComment on above:Performed By: #### CBCWD #### [facility] [address] [address] Zdbdhtfnynm/100 WBC (Bld)26.9 %[facility] Memorial HospitalComment on above:Performed By: #### CBCWD #### [facility] [address] [place] [address] DMX (RBC) [Entitic mass]29.8 pcEskrgv98.0-31.3MSalem Regional Medical Center Comment on above:Performed By: #### CBCWD #### [facility] [address] [place] [address] GSZO (RBC) [Mass/Vol]33.8 %Zojsyo60.0-37.0[facility] Comment on above:Performed By: #### CBCWD #### [facility] [address] [place] [address] GFX (RBC) [Entitic vol]88.4 pWPpkgvy50.0-100.0[facility] Comment on above:Performed By: #### CBCWD #### [facility] [address] [place] [address] Zfwxjvpxx (Bld) [#/Vol]0.8 10*3/uLNormal0.2-0.8[facility] Comment on above:Performed By: #### CBCWD #### [facility] [address] [place] [address] Ajcvlrssy/100 WBC (Bld)6.8 %NormalMercy Health Tiffin HospitalComment on above:Performed By: #### CBCWD #### [facility] [address] [place] [address] Xpcxlfbyfpf (Bld) [#/Vol]7.3 10*3/uLCritically high1.4-6.5Mer[facility] Tiffin HospitalComment on above:Performed By: #### CBCWD #### [facility] [address] [place] [address] Vuxkiemurpy/100 WBC (Bld)61.7 %Pross[facility] Memorial HospitalComment on above:Performed By: #### CBCWD #### [facility] [address] [place] [address] Xxfwkyuhv (Bld) [#/Vol]314 10*3/nJNhryub808-718[facility] Comment on above:Performed By: #### CBCWD #### [facility] [address] [place] [address] JUL (Bld) [#/Vol]4.45 10*6/uLNormal4.20-5.40[facility] Comment on above:Performed By: #### CBCWD #### [facility] [address] [place] [address] DKE (Bld) [#/Vol]11.9 10*3/uLCritically high4.8-10.8Mer[facility] Tiffin HospitalComment on above:Performed By: #### CBCWD #### [facility] [address] [place] [address] LV HEAD WO CONTRASTon [id number] HEAD WO CONTRASTCOMPARISON: No prior studies available [...] by: Jayce De Jesus DO 04/19/20 Final resultNormalMercy Health Tiffin HospitalComprehensive Metabolic Panelon 04-19-2020 Albumin [Mass/Vol]4.9 g/dLCritically high3.5-4.6MSalem Regional Medical CenterComment on above:Performed By: #### CMP #### [facility] [address] [place] [address] DEP [Catalytic activity/Vol]40 U/NZludiq11-880PtnzaMercy Health Tiffin Hospital Comment on above:Performed By: #### CMP #### [facility] [address] [place] [address] HDX [Catalytic activity/Vol]17 U/LNormal0-33[facility] Comment on above:Performed By: #### CMP #### [facility] [address] [place] [address] Hmdmr gap [Moles/Vol]14 mmol/LNormal9-15Mer[facility] Tiffin HospitalComment on above:Performed By: #### CMP #### [facility] [address] [place] [address] GCX [Catalytic activity/Vol]17 U/LNormal0-35[facility] Comment on above:Performed By: #### CMP #### [facility] [address] [place] [address] Jddhcfnfy [Mass/Vol]mg/dLNormal0.2-0.7Mer[facility] Tiffin HospitalComment on above:Performed By: #### CMP #### [facility] [address] [place] [address] Ryfmjbb [Mass/Vol]10.0 mg/dLCritically high8.5-9.9Mer[facility] Tiffin HospitalComment on above:Performed By: #### CMP #### [facility] [address] [place] [address] Bkydjrfc [Moles/Vol]101 mmol/DOpkuug57-584GxkspMercy Health Tiffin Hospital Comment on above:Performed By: #### CMP #### [facility] [address] [place] [address] XV4 [Moles/Vol]24 mmol/MAabvhi24-11XvfztMercy Health Tiffin HospitalComment on above:Performed By: #### CMP #### [facility] [address] [place] [address] Odwvunjhxi [Mass/Vol]0.87 mg/dLNormal0.50-0.90[facility] Comment on above:Performed By: #### CMP #### [facility] [address] [place] [address] OHO/1.73 sq M predicted among blacks MDRD (S/P/Bld) [Vol rate/Area] mL/min/{1.73_m2}Normal>60Mer[facility] Tiffin HospitalComment on above:Result Comment: >60 mL/min/1.73m2 EGFR, calc. for ages 18 and older using the MDRD formula (not corrected for weight), is valid for stable renal function.Performed By: #### CMP #### [facility] [address] [place] [address] YEX/1.73 sq M.predicted MDRD (S/P/Bld) [Vol rate/Area] mL/min/{1.73_m2}Normal>60Mer[facility] Tiffin HospitalComment on above:Result Comment: >60 mL/min/1.73m2 EGFR, calc. for ages 18 and older using the MDRD formula (not corrected for weight), is valid for stable renal function.Performed By: #### CMP #### [facility] [address] [place] [address] Cvoznvgw (S) [Mass/Vol]3.1 g/dLNormal2.3-3.5[facility] Comment on above:Performed By: #### CMP #### [facility] [address] [place] [address] Aubpaug [Mass/Vol]94 mg/tERjiidx24-69FocxySalem Regional Medical CenterComment on above:Performed By: #### CMP #### [facility] [address] [place] [address] Jdexmojye [Moles/Vol]3.9 mmol/LNormal3.4-4.9[facility] Comment on above:Performed By: #### CMP #### [facility] [address] [place] [address] Ghlhzit [Mass/Vol]8.0 g/dLNormal6.3-8.0Mer[facility] Tiffin HospitalComment on above:Performed By: #### CMP #### [facility] [address] [place] [address] Fpojbc [Moles/Vol]139 mmol/DDdrgbz155-521VaudkMercy Health Tiffin HospitalComment on above:Performed By: #### CMP #### [facility] [address] [place] [address] Eqbm nitrogen [Mass/Vol]12 mg/dLNormwa6-20[facility] Comment on above:Performed By: #### CMP #### [facility] [address] [place] [address] Sehkcc Acidon 97-18-1577Waflgep [Moles/Vol]1.8 mmol/LNormal0.5-2.2 [facility]iffin HospitalComment on above:Performed By: #### LACID #### [facility] [address] [place] [address] Hcytucamkrs 97-44-0029Wcmbgouyl385.8 ng/mLNYadkin Valley Community Hospital Comment on above:Result Comment: Default Normal Ranges Female Male Non: 4.8-23.3 4.0-15.2Performed By: #### PROLA #### [facility] [address] [address] Oyhqg HCG Qualitativeon 68-18-1679GXB.beta subunit QnNegativeNormal [facility] Tiffin HospitalComment on above:Performed By: #### SHCG #### [facility] [address] [place] [address] Shruxgmqhg, reflex to cultureon 15-22-3798Lvhgr Reflexed to Culture Not IndicatedNormalMercy Health Tiffin HospitalComment on above:Performed By: #### UAR #### [facility] [address] [address] Oufuahnpg Ql (U)NegativeNormalNegativeMercy Health Tiffin HospitalComment on above:Performed By: #### UAR #### [facility] [address] [place] [address] Rupqtnv (U)ClearNormalClearMercy Health Tiffin HospitalComment on above: Performed By: #### UAR #### [facility] [address] [place] [address] Ckeia (U)YellowNormalStraw/YellMercy Health Tiffin HospitalComment on above: Performed By: #### UAR #### [facility] [address] [place] [address] Cjdaaqj Ql (U)NegativeNormalNegSutter Auburn Faith HospitalComment on above:Performed By: #### UAR #### [facility] [address] [place] [address] Ffmzaeqnpq Ql (U)Trace-intactNormalNegSutter Auburn Faith Hospital Comment on above:Performed By: #### UAR #### [facility] [address] [place] [address] Znqnrqe Ql (U)NegativeNormalNegSutter Auburn Faith HospitalComment on above:Performed By: #### UAR #### [facility] [address] [place] [address] Ykxmihzxe esterase Test strip Ql (U)NegativeNormalNegSutter Auburn Faith HospitalComcaro center on above:Performed By: #### UAR #### [facility] [address] [place] [address] Kjwsvfo Ql (U)NegativeNormalNegSutter Auburn Faith HospitalComment on above:Performed By: #### UAR #### [facility] [address] [place] [address] oP (U)6.0 [pH]Normal5.0-9.0Mer[facility] Tiffin HospitalComment on above: Performed By: #### UAR #### [facility] [address] [place] [address] Cizvmcd Ql (U)NegativeNormalNegSutter Auburn Faith HospitalComment on above:Performed By: #### UAR #### [facility] [address] [place] [address] Syssohvd gravity (U) [Rel density]1.350Ulsdgq0.005-1.03Mer[facility] Tiffin HospitalComment on above:Performed By: #### UAR #### [facility] [address] [place] [address] Glnrxxjcvxmy Qn (U)0.2 {Alan'U}/dLNormal< 2.0[facility] Comment on above:Performed By: #### UAR #### [facility] [address] [place] [address] Dspdp Microscopicon 27-59-4712Xvpwfurvci cells LM Ql (Urine sed)0-2 NormalMercy Health Tiffin HospitalComment on above:Performed By: #### UMIC #### [facility] [address] [place] [address] ANJ (U) [#/Vol]2-3Znenso6-5GvbqeSalem Regional Medical CenterComment on above: Performed By: #### UMIC #### [facility] [address] [place] [address] EPR (U) [#/Vol]8-3Pkgmde8-1DsbqtMercy Health Tiffin HospitalComment on above: Performed By: #### UMIC #### [facility] [address] [place] [address] HZF Auto Differentialon 56-38-5458Iyclnpqqg (Bld) [#/Vol]0.1 10*3/uL 0 - 0.2 K/uLCommunity Memorial Hospitalcy Health- [place], KYBasophils/100 WBC (Bld)0.4 %[facility]- [place], [place] Eosinophils (Bld) [#/Vol]0.5 10*3/uL0 - 0.7 K/uLCommunity Memorial Hospitalcy [facility]- [place], [place] Eosinophils/100 WBC (Bld)4.2 %[facility]- [place], KYErythrocyte distribution width (RBC) [Ratio]12.5 %11.5 - 14.5 %[facility]- [place], KYHematocrit (Bld) [Volume fraction]39.4 %37 - 47 %[facility]- [place], KYHemoglobin (Bld) [Mass/Vol]13.3 g/dL 12 - 16 g/dLShelby Memorial Hospital [facility]- [place], KYInterpretation and review of laboratory results AbnormalRegional Medical Center- [place], KYLymphocytes (Bld) [#/Vol]3.2 10*3/uL1 - 4.8 K/uL [facility]- [place], KYLymphocytes/100 WBC (Bld)26.9 %[facility]- [place], KYMCH (RBC) [Entitic mass]29.8 pg27 - 31.3 pgShelby Memorial Hospital Health- [place], KYMCHC (RBC) [Mass/Vol]33.8 %33 - 37 %[facility]- [place], KYMCV (RBC) [Entitic vol]88.4 fL82 - 100 fLShelby Memorial Hospital Health- [place], KYMonocytes (Bld) [#/Vol]0.8 10*3/uL0.2 - 0.8 K/uLShelby Memorial Hospital [facility]- [place], KYMonocytes/100 WBC (Bld)6.8 %[facility]- [place], KYNeutrophils Absolute7.3 K/uL High1.4 - 6.5 K/uLShelby Memorial Hospital [facility]- [place], KYNeutrophils/100 WBC (Bld)61.7 %[facility]- [place], KYPlatelets (Bld) [#/Vol]314 10*3/uL130 - 400 K/uLShelby Memorial Hospital Health- [place], KYRBC (Bld) [#/Vol]4.45 10*6/uLShelby Memorial Hospital [facility]- [place], KYWBC (Bld) [#/Vol]11.9 10*3/uL High4.8 - 10.8 K/uLShelby Memorial Hospital [facility]- [place], KYComprehensive Metabolic Panelon 14-46-0222Kcwsqmk [Mass/Vol]4.9 g/dLHigh3.5 - 4.6 g/dLShelby Memorial Hospital Health- [place], KYALP [Catalytic activity/Vol]40 U/L40 - 130 U/LMwhite hospital Health- [place], KYALT [Catalytic activity/Vol]17 U/L0 - 33 U/LMercy Health- [place], KYAnion gap [Moles/Vol]14 mmol/L [facility]- [place], KYAST [Catalytic activity/Vol]17 U/L0 - 35 U/LMercy Health- [place], KYBilirubin Ql (U)<0.20.2 - 0.7 mg/dLShelby Memorial Hospital Health- [place], KYCalcium [Mass/Vol] 10.0 mg/dLHigh8.5 - 9.9 mg/dLMercy Health- [place], KYChloride [Moles/Vol]101 mmol/L [facility]- [place], KYCO2 [Moles/Vol]24 mmol/LMcleveland clinic avon hospitaly Health- [place], KYCreatinine [Mass/Vol]0.87 mg/dL0.5 - 0.9 mg/dLShelby Memorial Hospital [facility]- [place], KYGFR >60.0 >60[facility]- [place], [...] function. Globulin (S) [Mass/Vol]3.1 g/dL2.3 - 3.5 g/dLRegional Medical Center- [place], KYGlucose [Mass/Vol]94 mg/dL70 - 99 mg/dLShelby Memorial Hospital [facility]- [place], KYInterpretation and review of laboratory resultsAbnormalMerDoctors Hospital- [place], KYPotassium [Moles/Vol]3.9 mmol/L [facility]- [place], KYProtein [Mass/Vol]8.0 g/dL6.3 - 8 g/dLReg[facility] Medical [facility]- [place], [place] Sodium [Moles/Vol]139 mmol/LMwhite hospital Health- [place], KYUrea nitrogen [Mass/Vol]12 mg/dL 6 - 20 mg/dLRegional Medical Center- [place], KYHCG Qualitative, Serumon [id number] Qual NegativeMerDoctors Hospital- [place], KYLactic Acid, Plasmaon 06-74-4734Rhuoase [Moles/Vol] 1.8 mmol/L0.5 - 2.2 mmol/LMcleveland clinic avon hospitaly Health- [place], KYMicroscopic Urinalysison 08-50-1703Gbdlhtddnx Cells, UA0-2/HPFShelby Memorial Hospital Health- [place], KYRBC (U) [#/Vol]0-2Mcleveland clinic avon hospitaly Health- [place], KYWBC, UA0-2[facility]- [place], KYUrine Reflex to Cultureon [id number] UrineNegativeNegativeMercy Health- [place], KYBlood, Urine Trace-intactNegativeMercy Health- [place], KYClarity, UAClearClearMercy Health- [place], KYColor, UAYellowStraw/YellowMercy Health- [place], KYGlucose, UrNegativeNegative mg/dLMercy Health- [place], KYKetones Ql (U)NegativeNegative mg/dLMercy Health- [place], KYLeukocyte esterase Test strip Ql (U)NegativeNegativeMercy Health- [place], [place] Nitrite, UrineNegativeNegativeMercy Health- [place], KYpH, UA6.0[facility]- [place], [place] Protein (U) [Mass/Vol]NegativeNegative mg/dLMercy Health- [place], KYSpecific Sew[place], UA1.020[facility]- [place], KYUrine Reflex to CultureNot IndicatedMercy Health- [place], KYUrobilinogen, Urine0.2<2.0 E.U./dLMercy Health- [place], [place] ECHOCARDIOGRAPHY REPORT (HL)on [id number] REPORT (HL)CANTU, PRINCESS [id number] [id number] 179.6F 1.16b9HktnvrrnknVMNKFTNIOSFLVE LABReferring: Koffi Uriarte A.Reading: CURTIS GARCIA Transthoracic [...] 4 CH 16.1 cm2LA Volume Indexed 21.05 ml/t1Vtanadsdu/Systolic FunctionMV E- wave Vmax 0.884 m/secMV deceleration time 193 msecMV A-wave Vmax 0.494 m/secLV septal e' Vmax 0.115 m/secLV lateral e' Vmax 0.189 m/secLV E:e' septal ratio 7.7 ratio [facility] PRINCESS CANTU [id number] [place] [address] [id number] 93Koffi Uriarte MDECHOCARDIOGRAPHY REPORTLV E:e' lateral ratio [...] There is no evidence ofpulmonic regurgit ation. [facility] PRINCESS CANTU [id number] [place] [address] [id number] 93Koffi Uriarte MDECHOCARDIOGRAPHY REPORTPericardium:There is no pericardial [...] is a normal echocardiogram.PARAS GARCIA05/10/2017 10: 26:53 [facility] PRINCESS CANTU [id number] [place] [address] [id number]/[id number] HospitalKoffi roper MDECHOCARDIOGRAPHY REPORTNormalSaint Select Specialty HospitalBASIC METABOLIC PANELon 57-04-6746Fcqzs gap10 mmol/LNormal6-18Saint Select Specialty HospitalComment on above: Order Comment: Is patient fasting? YESPerformed By: #### LBMP, LGFRP ####[facility] We[address]dlcylm[address] [place], [place] [address]Calcium9.6 mg/dLNormal 8.6-10.3SLincoln County HospitalComment on above:Order Comment: Is patient fasting? YESPerformed By: #### LBMP, LGFRP ####[facility] U[address]uldvhcq[address] [place], [place] [address]Ptlhvswk845 mmol/NCqszmy18-581HtzqjSagewest Healthcare [facility] [place] Comment on above:Order Comment: Is patient fasting? YESPerformed By: #### LBMP, LGFRP ####[facility] Qenhvobejn85370 [place], [place] [address] mmol/L Dpyjcn04-95ObewfSagewest Healthcare - Lander - LanderComment on above:Order Comment: Is patient fasting? YESPerformed By: #### LBMP, LGFRP ####[facility] [address] [place] [address]Clzfnnwdrj4.74 mg/dLNormal0.5-1.05[facility] - LanderComment on above:Order Comment: Is patient fasting? YESPerformed By: #### LBSHAWN, LGFRP ####[facility] I[address]heoytk[address] [place] [address]Oleadcw mass conc82 mg/qFOjtnvl00-30JwepvSagewest Healthcare - Lander - LanderComment on above:Order Comment: Is patient fasting? YESPerformed By: #### LBSHAWN, LGFRP ####[facility] Z[address]op[address]ozdk[address] [place] [address]Ahxwkorqp molar conc4.1 mmol/LNormal3.5-5.3SLincoln County HospitalComment on above:Order Comment: Is patient fasting? YESPerformed By: #### LBMP, LGFRP ####[facility] Kgn[address]ndukw[address] [place] [address]Rupsev114 mmol/WKet352-983EmxgsSagewest Healthcare - Lander - LanderComment on above:Order Comment: Is patient fasting? YESPerformed By: #### LBMP, LGFRP ####[facility] Xhjurreorm90824 [place], [place] [address]Loxm kujevpdc11 mg/dLNormal6-23[facility] - LanderComment on above:Order Comment: Is patient fasting? YESPerformed By: #### LBMP, LGFRP ####[facility] I[address]mmhly[address] [place] [address]PMG AUTOon 05-04-2017 Erythrocyte distribution width Auto Ratio (RBC)12.8 %Kanaix03.5-14.5SLincoln County HospitalComment on above:Performed By: #### LCBC ####[address] [address]Vbcnjkecfuzk (RBC)4.65 10*6/uLNormal3.5-5.5 [facility] - LanderComment on above:Performed By: #### LCBC ####[address] [address]Yfsdepalac (HCT)41.1 %Normal 36.0-48.0[facility] - LanderComment on above:Performed By: #### LCBC ####[address] [address]Xwrjfjprme mass conc (Bld)13.8 g/sMWbjjcy47.0-15.0[facility] - LanderComment on above: Performed By: #### LCBC ####[address] [address]CSH76.7 jpEuhymh15.4-34.6[facility] - LanderComment on above: Performed By: #### LCBC ####[address] [address]ZQIJ mass conc (RBC)33.6 g/cFFvrlqx15.0-36.0[facility] [place] Comment on above:Performed By: #### LCBC ####[address] [address]FBC32.4 vLRwdffg05.0-98.0[facility] - LanderComment on above:Performed By: #### LCBC ####[address] [address]Mhzxflsa mean volume (PMV)9.3 fLNormal8.4-11.9[facility] [place]:Performed By: #### LCBC ####[address] [address]Iyxpduklv377 10*3/nOUtnqdb033-656GejsmSagewest [facility] [place]Comment on above:Performed By: #### LCBC ####[facility] [id number] [place], [place] [address]EJJ (Leukocytes)6.1 10*3/uLNormal3.9-11.0 [facility] [place] above:Performed By: #### LCBC ####[facility] [id number] [place], [place] [address]AJGCTJBFOM FILTRATION RATE ESTon 79-24-6988uDVZ (non-black)mL/min/{1.73_m2}Normal> 60[facility] [place]anderComment on above:Order Comment: Is patient fasting? YESPerformed By: #### LBMP, LGFRP ####[facility] [id number] [place], [place] [address]US AMER> 90Normal> 60[facility] LanderComment on above:Order Comment: Is patient fasting? YESResult Comment: Effective 12/12/14:CKD-EPI equation / based on IDMS traceable creatinine.Continue touse the CREAT CLR-DOSE ([place]-Gault)value for determining medication dose.Performed By: #### LBMP, LGFRP ####[facility] [id number] [place] [address] Vital Signs Date TimeVital SignValuePerforming ApqbbozknOvcblsjl02-26-3406 10:07-0400Body mass index (BMI) [Ratio]27.02 kg/m2Roula VILLEDA Work Phone: [facility] SystemSijgjkbjxr72-02-8848 10:07-0400Body ucmrjo13.01 kgRoula VILLEDA Work Phone: [phone] SystemGsudiibdkn33-67-2046 10:07-0400Diastolic blood njvwboof97 mm[Hg]Roula VILLEDA Work Phone: [phone] SystemOznvuwqwhy91-29-5039 10:07-0400Systolic blood ejjmjrdn590 mm[Hg]Roula VILLEDA Work Phone: [facility] DefenceResearch [facility] CenterVglukwfggi55-71-0649 15:12-0400Body mass index (BMI) [Ratio]27.04 kg/v2OdmwmWillis Chen DO Work Phone: 1(419)483-[address] [place], [place] [address]Dpgfqfyazb49-17-3076 15:12-0400Body rlylnk54.06 kgCorey April DO Work Phone: 1(691)406-[address] [place], [place] [address]Rudzsaqjkg92-54-7378 15:12-0400Diastolic blood ugqrqlpb78 mm[Hg]Willis April DO Work Phone: 1(877)384-[address] [place], [place] [address]Zyadphtanx67-77-1460 15:12-0400Systolic blood mm[Hg]Willis April DO Work Phone: 1(563)[facility] [place] [address]-20-2025 15:39-0400Body mass index (BMI) [Ratio]26.26 kg/m2Amy Mitchel VILLEDA Work Phone: 1(457)[facility] [place], [place] [address]Xxrkkhggks75-01-0568 15:39-0400Body olkcka15.65 kgAmy Mitchel VILLEDA Work Phone: 1(590)[facility] [place], [place] [address]Bagahiiwej01-95-6029 15:39-0400Diastolic blood spykuawp03 mm[Hg]Roula VILLEDA Work Phone: 1(231)[facility] [place], [place] [address]Uymdikrhwd48-01-9136 15:39-0400Systolic blood baxxfuhs903 mm[Hg]Roula VILLEDA Work Phone: 1(580)[facility] [place], [place] [address]Xtyhlltpif68-29-3023 15:09-0400Body mass index (BMI) [Ratio]26.11 kg/z1Whnjw April DO Work Phone: 1(175)[facility] [place], [place] [address]Xqxayueozb81-80-4896 15:09-0400Body syygex25.2 kg Willis April DO Work Phone: 1(378)[facility] [place], [place] [address]Swtjyfszsp88-73-6083 15:09-0400Diastolic blood kcpqgcoq46 mm[Hg]Willis April DO Work Phone: 1(646)[facility] [place], [place] [address]Vskodjqqvv29-44-5598 15:09-0400Systolic blood wyoczbue308 mm[Hg]Willis April DO Work Phone: 1(392)[facility] [place], [place] [address]Vwrmcojaof32-51-8514 09:35-0400Body mass index (BMI) [Ratio]25.92 kg/m2Amy Mitchel VILLEDA Work Phone: 1(109)[facility]-[address] [place], [place] [address] 09:35-0400Body pdefwt11.61 kgRoula VILLEDA Work Phone: 1(799)974-[address] [place], [place] [address]Hwwfdmmliq83-73-0789 09:35-0400Diastolic blood bhwundlr95 mm[Hg]Roula VILLEDA Work Phone: [facility] SystemDjwomvimjk46-79-4876 09:35-0400Systolic blood mm[Hg]Roula VILLEDA Work Phone: 1(498)991-[address] [place], [place] [address]Xntywvyzuv11-49-3464 11:56-0400Body mass index (BMI) [Ratio]26.55 kg/x5[facility]-27-20[facility] 11:56-0400Body weight 81.56 [facility]02-25-2025 12:28-0500Body .3 cmKoffi Uriarte MD Work Phone: 1(774)676-[facility]02-25-2025 12:28-0500 Body mass index (BMI) [Ratio]27.06 kg/p7JillwltKoffi Uriarte MD Work Phone: [phone]02-25-2025 12:28-0500 Body swsdazkmfjm85.3 [degF]Koffi Uriarte MD Work Phone: 1(365)5-[facility]02-25-2025 12:28-0500 Body nfyvdm31.12 kgKoffi Uriarte MD Work Phone: [facility]02-25-2025 12:28-0500 Diastolic blood secgugzp60 mm[Hg]Koffi Uriarte MD Work Phone: [facility]02-25-2025 12:28-0500 Heart rate71 /minKoffi Uriarte MD Work Phone: [facility]02-25-2025 12:28-0500 Systolic blood bpfrhvov184 mm[Hg]Koffi Uriarte MD Work Phone: [facility]10-16-2024 09:18-0400 Body fisupr762.3 Tawanda Calderon MD Work Phone: [facility]10-16-2024 09:18-0400 Body mass index (BMI) [Ratio]28.15 kg/p5GcwgohNedra Calderon MD Work Phone: [facility]10-16-2024 09:18-0400 Body elshlpemzta24.91 [degF]Nedra Calderon MD Work Phone: [facility]10-16-2024 09:18-0400 Body qoohof13.46 kgNedra Calderon MD Work Phone: [facility]10-16-2024 09:18-0400 Diastolic blood vndwyram67 mm[Hg]Nedra Calderon MD Work Phone: [facility]10-16-2024 09:18-0400 Heart rate67 /Wilner Calderon MD Work Phone: [facility]10-16-2024 09:18-0400 Systolic blood prlvjuay439 mm[Hg]Nedra Calderon MD Work Phone: [facility]04-23-2024 15:27-0400 Body .26 [facility] 15:27-0400Body mass index (BMI) [Ratio]28.2 kg/d2IdohidcjdLouis [facility]04-23-2024 15:27-0400Body pxtmunfjlej18.1 [degF][facility]04-23-2024 15:27-0400Body ovwabk14.74 kgLouis [facility]04-23-2024 15:27-0400Heart rate63 /[facility]04-23-2024 15:27-0400Respiratory rate18 /[facility]04-23-2024 15:27-6123SuM6% (BldA) [Mass fraction]99 %[facility] 07-31-2022 10:54-0500Body qgcuxo440.26 cmKoffi Uriarte Work Phone: [facility] Work Phone: 1(130) 858-884101-13-2023 10:54-0500Body mass index (BMI) [Ratio] 31.01 kg/r2Dedxhid A Chapito Work Phone: mp-[facility] [place] Work Phone: 1(704) 224-141301-13-2023 10:54-0500Body surface area Derived from formula2.11 l6Ozeevwv A Chapito Work Phone: mp-[facility] [place] Work Phone: 1(128) 697-351901-13-2023 10:54-0500Body aoaqgtriolb72.6 [degF] Koffi A Chapito Work Phone: mp[facility] [place] Work Phone: 1(945) 420-877501-13-2023 10:54-0500Body vvpits83.26 kgMonique A Chapito Work Phone: mp-[facility] [place] Work Phone: 1(393) 158-238201-13-2023 10:54-0500Diastolic blood ceuayylc60 mm[Hg] Koffi Alison Uriarte Work Phone: [facility] [place] Work Phone: 1(815) 519-394701-13-2023 10:54-0500Heart rate76 /minMonique A Chapito Work Phone: [facility] [place] Work Phone: 1(307) 383-503501-13-2023 10:54-0500Respiratory rate18 /minMonique A Chapito Work Phone: [facility] [place] Work Phone: 1(907) 219-387601-13-2023 10:54-0500Systolic blood hrtzkugv974 mm[Hg] Koffi Alison Uriarte Work Phone: mpKinems Learning GamesFort Lauderdale Work Phone: 1(350) 489-488406-08-2022 11:32-0400Body .26 cmMonique A Uriarte Work Phone: mp873-2612IT-Xuxhgstwk-Eugene SJW DO Work Phone: 1(692) 209-539906-08-2022 11:32-0400Body mass index (BMI) [Ratio] 31.03 kg/g1Vuvysvx A Uriarte Work Phone: mp755-3017YR-Kwimdgqdi-[place] SJW DO Work Phone: 1(575) 616-569106-08-2022 11:32-0400Body surface area Derived from formula2.11 t7Rsjocin A Uriarte Work Phone: mp094-2183TB-Maixsastv-Bracketr SJW DO Work Phone: 1(108) 338-162106-08-2022 11:32-0400Body jfhozjoqjgo78.1 [degF] Koffi Alison ClementeUriarte Work Phone: mp985-2136BY-Poyptvkmk-Bracketr W DO Work Phone: 1(847) 777-778606-08-2022 11:32-0400Body kiilsw03.3 kgMonique A Uriarte Work Phone: mp311-9691VO-Iakzwymph-Bracketr W DO Work Phone: 1(551) 281-525206-08-2022 11:32-0400Diastolic blood dthuosyc78 mm[Hg] Koffi Alison Uriarte Work Phone: mp977-3919SP-Obxhlgpki-Eugene W DO Work Phone: 1(417) 863-478706-08-2022 11:32-0400Heart rate54 /minMonique A Chapito Work Phone: mp389-6042SR-Jidvhrpql-[place] SJW DO Work Phone: 1(312) 151-389806-08-2022 11:32-4999YpS5% (BldA) [Mass fraction]100 % Koffiminesh Uriarte Work Phone: mp802-6859OE-Soihjwlai-[place] SJW DO Work Phone: 1(319) 490-696306-08-2022 11:32-0400Systolic blood tzecvyyy715 mm[Hg] Koffi A Chapito Work Phone: mp104-1229WQ-Zwvkofdum-[place] SJ DO Work Phone: 1(224) 855-213605-02-2022 13:08-0400Body obpxmh985.72 cmMonique A Chapito Work Phone: mp-[facility] Work Phone: 1(566) 625-181105-02-2022 13:08-0400Body mass index (BMI) [Ratio] 32.39 kg/h9Xelxtsr A Chapito Work Phone: mp[facility] Work Phone: 1(982) 347-286205-02-2022 13:08-0400Body surface area Derived from formula2.1 y2Mehfkwv A Chapito Work Phone: mp[facility] Work Phone: 1(536) 965-259505-02-2022 13:08-0400Body utmmoaqqaqs36 [degF]Koffi A Chpaito Work Phone: mp[facility] Work Phone: 1(203) 240-411705-02-2022 13:08-0400Body ssgcyw95.62 kgMonique A Chapito Work Phone: mp[facility] Work Phone: 1(999) 138-346405-02-2022 13:08-0400Diastolic blood mkqsxuvj38 mm[Hg] Koffi A Chapito Work Phone: mp[facility] Work Phone: 1(628) 768-202105-02-2022 13:08-0400Heart rate70 /minMonique A Chapito Work Phone: mp[facility] Work Phone: 1(987) 631-746205-02-2022 13:08-0400Respiratory rate18 /minMonique A Chapito Work Phone: [facility] Work Phone: 1(757) 554-819905-02-2022 13:08-3163AzQ2% (BldA) [Mass fraction]96 % Koffi Uriarte Work Phone: mp-[facility] Work Phone: 1(483) 278-450705-02-2022 13:08-0400Systolic blood epmbqumv062 mm[Hg] Koffi Uriarte Work Phone: mp-[facility]SP[facility]-[employer] Work Phone: 1(213) 468-534612-08-2021 10:54-0500Body eqrrpb878.72 cmKoffi Uriarte Work Phone: mp148-4385GO-Eqwffcdyc-Eugene W DO Work Phone: 1(465) 960-666212-08-2021 10:54-0500Body mass index (BMI) [Ratio] 32.08 kg/u6JaakrguKoffi Uriarte Work Phone: mp909-1000AA-Vrnmrqfzz-[place]ugene W DO Work Phone: 1(416) 576-318612-08-2021 10:54-0500Body surface area Derived from formula2.09 n7EmcmbsdKoffi Clementeson Work Phone: mp361-7903HZ-Bbdplhovs-[place] W DO Work Phone: 1(691) 883-430512-08-2021 10:54-0500Body rchctuqwvem36.1 [degF] Koffi Uriarte Work Phone: mp664-9125BP-Lrkojfspz-[place] SJW DO Work Phone: 1(393) 651-369212-08-2021 10:54-0500Body rzdsag19.71 kgKoffi Clementeson Work Phone: mp237-5532QC-Qgnelpfuf-[place] SJW DO Work Phone: 1(800) 482-343012-08-2021 10:54-0500Diastolic blood alajxeiz07 mm[Hg] Koffi Clementeson Work Phone: mp660-8477KB-Hqyioxxrb-[place] SJW DO Work Phone: 1(733) 996-841812-08-2021 10:54-0500Heart rate67 /minMonminesh Clementeson Work Phone: mp322-7954EG-[facility]qlfdzibyHahnemann [facility] DO Work Phone: 1(615) 594-471412-08-2021 10:54-0500Respiratory rate18 /minMonminesh Uriarte Work Phone: mp377-7130LK-DdnkgclrpHahnemann Hospital DO Work Phone: 1(174) 807-349912-08-2021 10:54-2248NyI1% (BldA) [Mass fraction]99 % Koffi Uriarte Work Phone: mp575-2202HM-BabhkeqxtHahnemann Hospital DO Work Phone: 1(254) 891-986512-08-2021 10:54-0500Systolic blood ruzklhtv553 mm[Hg] Koffi Uriarte Work Phone: mp580-7361TB-OduidgmydHahnemann Hospital DO Work Phone: 1(483) 499-379011-02-2021 15:59-0400Body onario687.72 cmMonminesh Clementeson Work Phone: mp-[employer] Work Phone: 1(434) 168-648711-02-2021 15:59-0400Body mass index (BMI) [Ratio] 31.93 kg/e7Towylsiminesh Uriarte Work Phone: mp-[employer] Work Phone: 1(422) 795-618311-02-2021 15:59-0400Body surface area Derived from formula2.09 d3UuzpnojKoffi Clementeson Work Phone: mp-[employer] Work Phone: 1(603) 187-722611-02-2021 15:59-0400Body azpeiivjpob03.1 [degF] Koffi Clementeson Work Phone: [employer] Work Phone: 1(702) 875-715411-02-2021 15:59-0400Body iuylhd69.26 kgMonique Alison ClementeUriarte Work Phone: [employer] Work Phone: 1(750) 102-228611-02-2021 15:59-0400Diastolic blood qpkvbogn69 mm[Hg] Koffi Uriarte Work Phone: mp-[facility] [place] Work Phone: 1(167) 648-399711-02-2021 15:59-0400Heart rate72 /minMonique A Chapito Work Phone: mp-[facility] [place] Work Phone: 1(115) 547-884911-02-2021 15:59-0400Respiratory rate16 /minMonique A Chapito Work Phone: mp-[facility] [place] Work Phone: 1(751) 609-805611-02-2021 15:59-0400Systolic blood ojziavfr062 mm[Hg] Koffi Uriarte Work Phone: mp-[facility] [place] Work Phone: 1(366) 588-519206-08-2021 14:45-0400Body ofghbu894.72 cmMonique A Chapito Work Phone: mp[facility] [place] Work Phone: 1(898) [phone] 14:45-0400Body mass index (BMI) [Ratio] 30.71 kg/o0Qfpfuxu A Chapito Work Phone: mp[facility] [place] Work Phone: 1(572) 900-146006-08-2021 14:45-0400Body surface area Derived from formula2.05 l5Fbfjxlr A Uriarte Work Phone: mp-[facility] [place] Work Phone: 1(104) [phone] 14:45-0400Body jmjbddurrtw24.8 [degF] Koffi A Uriarte Work Phone: mp[facility] [place] Work Phone: 1(843) 555-400506-08-2021 14:45-0400Body atlqfd18.63 kgMonique A Uriarte Work Phone: mp-[facility] [place] Work Phone: 1(441) 157-806506-08-2021 12:59-0400Body dyzbuz791.72 cmMonique A Chapito Work Phone: mp-WSPCAltatechJennifer Ruby Work Phone: 1(317) [phone] 12:59-0400Body mass index (BMI) [Ratio] 30.71 kg/g7Nqlcgkt A Uriarte Work Phone: mp[facility] [place] Work Phone: 1(360) [phone] 12:59-0400Body surface area Derived from formula2.05 a3Hozoktx A Uriarte Work Phone: mp-[facility] [place] Work Phone: 1(103) [phone] 12:59-0400Body lvfjipghxzu82.2 [degF] Koffi A Chapito Work Phone: mp-[facility] [place] Work Phone: 1(417) 214-233606-08-2021 12:59-0400Body tpufty39.63 kgMonique A Chapito Work Phone: mp-[facility] [place] Work Phone: 1(505) 152-991306-08-2021 12:59-0400Diastolic blood grouvnoi81 mm[Hg] Koffi A Chapito Work Phone: mp[facility] [place] Work Phone: 1(529) [phone] 12:59-0400Heart rate75 /minMonique A Uriarte Work Phone: mp-[facility] [place] Work Phone: 1(514) [phone] 12:59-0400Respiratory rate16 /minMonique A Uriarte Work Phone: mp-WSPCAltatechJennifer Ruby Work Phone: 1(801) [phone] 12:59-0400Systolic blood tlhzoaya814 mm[Hg] Koffi A Uriarte Work Phone: mp[facility] Work Phone: 1(996) [phone] 13:26-0500BMI (Body Mass Index)29.04 kg/m2 Koffi UriarteSoeiyyloxmGN-Hdgemzqwt-Zrsmawno W DO Work Phone: 1(965) 134-721401-27-2021 13:26-0500Body Uuevqqfxnwp20.5 [degF] Koffi UriarteEkjgfchggmQJ-Izeaqbznd-Safgmfnf W DO Work Phone: 1(517) 274-778101-27-2021 13:26-0500Body jeviwt84.64 kgKoffi UriartePhrlquwazrCI-Ihkfqhoxw-Ezidswhn W DO Work Phone: 1(477) 403-417501-27-2021 13:26-0500BP Xcbeyghvx976 mm[Hg]Koffi ClementeMqicjatnkwTE-Aflnnknko-Tjklskbl W DO Work Phone: 1(912) 273-463701-27-2021 13:26-0500BP Gzebrsdp911 mm[Hg]Koffi TavarezSyiauzpwweLG-Ymuoueyvv-Ctmbvapp W DO Work Phone: 1(479) 158-965401-27-2021 13:26-0500BSA (Body Surface Area)2 m2 Koffi UriarteSawnogpzdyVD-Kqcfqrknv-Eqtbrpwc W DO Work Phone: 1(479) 790-322101-27-2021 13:26-7044Wegshd103.72 cmKoffi Uriarte CJ-Regvgbzbm-Xcdxuqzg SJW DO Work Phone: 1(783) 546-921911-10-2020 15:24-0500BMI (Body Mass Index)28.59 kg/m2 Koffi TavarezVhhrzqavjfTN-DGVQ-Qgtj [place] Work Phone: 1(550) 684-739611-10-2020 15:24-0500Body Fzctnkdujlf15.6 [degF] Koffi UriarteElestxjnndJY-QQYE-Xczg [place] Work Phone: 1(604) 716-206611-10-2020 15:24-0500Body .28 kgKoffi UriarteReppllunzaDD-EXFP-Qrdm [place] Work Phone: 1(704) 285-844311-10-2020 15:24-0500BP Vmfsfazcs68 mm[Hg]Koffiminesh TavarezXaafuvaisiYU-QQDQ-Bhfv [place] Work Phone: 1(168) 240-299611-10-2020 15:24-0500BP Ysyqragh318 mm[Hg]Koffi JohnsonMybhodakrdBK-GHYU-Mbva [place] Work Phone: 1(605) 748-184911-10-2020 15:24-0500BSA (Body Surface Area)1.99 m2 Koffi UriarteYzxunojlfcKH-JMBO-Xdvh [place] Work Phone: 1(813) 679-129611-10-2020 15:24-0679Hvemia714.72 cmKoffi Uriarte [facility] Work Phone: 1(102) 339-895111-10-2020 15:24-0500Pulse (Heart Rate)70 /minKoffi TavarezOklrryvdnnPX-GEIU-Izbm [place] Work Phone: 1(557) 103-516711-10-2020 15:24-0500Respiratory Rate18 /minKoffi TavarezPtcyinnbqdWI-BOGP-Jtlr [place] Work Phone: 1(962) [phone] 16:01-0400BMI (Body Mass Index)28.59 kg/m2 Koffi UriarteZmhapehmekLK-PTMU-Pzqc [place] Work Phone: 1(238) 129-466510-08-2020 16:01-0400Body Deagwdgixyr79.6 [degF] Koffi TavarezFsnbkhucyuZV-GBSR-Mxnu [place] Work Phone: 1(329) 278-557010-08-2020 16:01-0400Body .28 kgKoffi TavarezEifwcvtuyiFS-MNYA-Rqwq [place] Work Phone: 1(473) 666-159610-08-2020 16:01-0400BP Edmlnnfgl532 mm[Hg]Koffi TavarezZbxbasnqfjCP-ZPBC-Ygyl [place] Work Phone: 1(463) 463-887010-08-2020 16:01-0400BP Gcproehm503 mm[Hg]Koffi TavarezUczwwjekxnWI-GHRZ-Svip [place] Work Phone: 1(888) 549-338710-08-2020 16:01-0400BSA (Body Surface Area)1.99 m2 Koffi TavarezQvvrzyptxdSQ-ZXVK-[place] Work Phone: 1(871) 669-314910-08-2020 16:01-0695Ielatj925.72 cmKoffi Uriarte CA-EPOK-Cohh [place] Work Phone: 1(485) [phone] 16:01-0400Pulse (Heart Rate)76 /minKoffi TavarezGlqceqmptxZO-EHDK-Wqkh [place] Work Phone: 1(258) 750-301610-08-2020 16:01-0400Respiratory Rate16 /minKoffi TavarezDtdjokckexMR-XIFW-Sijp [place] Work Phone: 1(172) 940-915710-02-2020 00:00-0400BP Joifaueba34 mm[Hg][facility], SQ13-90-4420 00:00-0400BP Ncvjbzrm395 mm[Hg][facility], AS29-49-1431 22:17-0400BMI (Body Mass Index)28.06 kg/b7MdqineiGeisinger Community Medical Center, KQ45-07-6061 22:17-0400Body Ogobbfbfhki83.91 [degF][facility], XT67-21-2081 22:17-0400Body dieqfz38.18 kgGeisinger Community Medical Center, UP93-24-6487 22:17-8007Fbglsq246.3 cmGe[facility], CQ22-33-9660 22:17-0400Pulse (Heart Rate)105 /minGe[facility], [place] 04-18-2020 22:17-0400Pulse Pddvislr29 %[facility] [place] 04-18-2020 22:17-0400Respiratory Rate16 /minGe[facility]er [facility], [place] Encounters Encounter DateEncounter TypeCare ProviderFacilityStart: 05-29-2025 End: 19-64-9158Owtalm flowsheetCorey April DO Work Phone: [facility]BGYNStart: 05-29-2025 End: 56-68-5626Moltdc flowsheetCorey April DO Work Phone: [facility] [place] [facility]BGYNStart: 05-29-2025 End: 17-67-3473vxyoqjxyfdYFKJK FAZIONot AvailableStart: 05-19-2025 End: 63-08-1072Toduewnae Result EncounterRoula VILLEDA Work Phone: noMS External Department UnsolicitedStart: 05-19-2025 End: 10-62-7015Fpvovyvvc Result EncounterRoula VILLEDA Work Phone: noms External Department UnsolicitedStart: 04-30-2025 End: 10-15-8710Sbcfuf flowsheetRoula VILLEDA Work Phone: noMS [place] OBGYNStart: 04-30-2025 End: 35-90-7519Yamfsl Tim VILLEDA Work Phone: [facility] [place] OBGYNStart: 04-30-2025 End: 75-77-4128edsromqtobLRV MITCHELNot AvailableStart: 04-30-2025 End: 05-83-8092Fshujprs flow sheetRoula VILLEDA Work Phone: noms Giselle OBGYNComment on above:Second trimester ([facility]); 24 weeks gestation of ([facility]); Hypertension, unspecified type; Seizure ([facility]); Diabetes mellitus screeningStart: 04-07-2025 End: 12-79-0218Xgsnklthv Result EncounterRoula VILLEDA Work Phone: noms External Department UnsolicitedStart: 04-07-2025 End: 41-36-5180Juhytfncz Result EncounterRoula VILLEDA Work Phone: noms External Department UnsolicitedStart: 04-04-2025 End: 32-88-7330Yswhknxu flow sheetCorey April DO Work Phone: [facility] [place] OBGYNComment on above:20 weeks gestation of ([facility]); Second trimester ([facility])Start: 04-04-2025 End: 29-75-0026pkydckdezbBPQKX FAZIONot AvailableStart: 04-04-2025 End: 91-23-2297Ekjuhondl Result EncounterCorey April DO Work Phone: noms External Department UnsolicitedStart: 04-04-2025 End: 48-36-0495Yihrnxnay Result EncounterCorey April DO Work Phone: noms External Department UnsolicitedStart: 03-14-2025 End: 07-56-4659gabqkrzifqQHL MITCHELNot AvailableStart: 03-07-2025 End: 54-70-2260Xvcrrst encounter procedureRoula Grullon CHRISTIANA Work Phone: [facility] Work Phone: Start: 03-07-2025 End: 85-93-8445Ubysqwus flow sheetRoula Lerneraayush VILLEDA Work Phone: noms Giselle OBGYNComment on above:Well woman exam with routine gynecological exam; Second trimester ([facility]); 16 weeks gestation of ([facility]); Vaginal discharge; STD exposure; Screening, , for anatomic survey ([facility])Start: 03-07-2025 End: 66-17-5937ecpkmxjyyyTEJ MITCHELNot AvailableStart: 03-07-2025 End: 52-31-7516Jtymmq flowsheetRoula Lerneraayush VILLEDA Work Phone: [facility] [place] OBGYNStart: 03-07-2025 End: 98-27-8616Kvldnk flowstayaRoula Mitchel PA Work Phone: [facility] [place] OBGYNStart: 03-07-2025 End: 88-19-4167Rkpbwebpm Result EncounterRoula Grullon CHRISTIANA Work Phone: noms External Department UnsolicitedStart: 03-07-2025 End: 10-49-5650Qpinsabw Result EncounterRoula Lerneraayush VILLEDA Work Phone: noms External Department UnsolicitedStart: 02-21-2025 End: 40-58-9186pxpdhwbgsyMRHTQ FAZIONot AvailableStart: 02-07-2025 End: 79-87-9806Mlwzspcd flow sheetCorey April DO Work Phone: [facility] [place] [facility]BGYNComment on above:First trimester ([facility]); 12 weeks gestation of ([facility]); Missed menses; Subchorionic hematoma in second trimester, single or unspecified fetus ([facility]) Start: 02-07-2025 End: 87-51-2188mmfvcuxsjwIGFYF FAZIONot AvailableStart: 02-07-2025 End: 97-68-3282Pcalih flowsheetCorey April DO Work Phone: NOPN BCP OBStart: 02-07-2025 End: 43-31-7239Gfdlme flowsheetCorey April DO Work Phone: NOKF BCP OBStart: 02-01-2025 End: 22-65-2386Bzqagx Tim VILLEDA Work Phone: NOOA BCP OBStart: 02-01-2025 End: 21-94-2136Dsnhhf Tim VILLEDA Work Phone: NOSS BCP OBStart: 02-01-2025 End: 15-23-2190Iwrbqe outpatient visit 15 minutesAmy Mitchel VILLEDA Work Phone: noms BCP OBComment on above:Nausea and vomiting, unspecified vomiting type (Primary Dx); First trimester ([facility]); 11 weeks gestation of ([facility])Start: 02-01-2025 End: 90-79-5745iscysqimiiHYT RAMEYNot AvailableStart: 01-22-2025 End: 72-85-7633Ndbsxsxin Result EncounterCorey April DO Work Phone: noms External Department UnsolicitedStart: 01-22-2025 End: 54-18-8656Jtzqeigad Result EncounterCorey April DO Work Phone: noMS External Department UnsolicitedStart: 01-12-2025 End: 02-39-9602Eqndro outpatient visit 5 minutesFakay Peterson Nomshaina Bcp ObNOMS BCP OBComment on above:GA: 1u2qMgtox: 01-12-2025 End: 67-15-3818ivwrvyqbqjYXL RAMEYNot AvailableStart: 09-12-2024 End: 95-69-4134Vzfbnz outpatient visit 25 minutesKoffi Uriarte MD Work Phone: [facility] Primary CareComment on above:Benign essential hypertension (Primary Dx); Seizure (Multi); Vitamin B12 deficiency; Fatigue, unspecified type; Well adult health check; Vitamin D deficiencyStart: 09-12-2024 End: 79-17-4669Jboozrz encounter statusKoffi Uriarte MD Work Phone: [facility] Work Phone: Start: 09-12-2024 End: 35-85-4379zpsxtqnbzyOSUZJHV A [facility] Start: 09-12-2024 End: 69-75-1494Piutrbtwv for general adult medical examination without abnormal findingsMONMed[facility] AmbulatoryStart: 05-03-2024 End: 86-10-6607Vbqsry outpatient visit 25 minutesNedra Calderon MD [facility]:Seizure (Multi) (Primary Dx)Start: 05-03-2024 End: 27-04-0040aeqklnikbaBSKUSB M [facility] AmbulatoryStart: 04-13-2024 End: 78-25-4103stlcanhvlbXaievkj HARWOODFacility:[facility]MCStart: 03-30-2024 End: 05-19-3521sdzdzykmrpFybb T AMESFacility:[facility]MCStart: 12-15-2023 End: 17-54-1929kdfrgojkykTqfn ProviderFacility:[facility]tart: 11-09-2023 End: 65-60-4030qcbvyztdmlXpmcjutgzBarney [facility] Work Phone: Start: 11-09-2023 End: 77-98-4942Qfwzrwj encounter procedureUnc [facility] Work Phone: Start: 08-04-2023 End: 28-32-3166iysytbkqmjWjmqf FazioFacility:[facility] Start: 08-03-2023 End: 87-87-2543Ljrjpbpop Result EncounterCorey April DO Work Phone: noms External Department UnsolicitedStart: 08-03-2023 End: 38-77-5764Zzvuenxrl Result EncounterCorey April DO Work Phone: noms External Department UnsolicitedStart: 07-26-2023 End: 44-43-8979Nadkrvksz Result EncounterCorey April DO Work Phone: noms External Department UnsolicitedStart: 07-26-2023 End: 73-00-9100Mgiygpyfu Result EncounterCorey April DO Work Phone: noms External Department UnsolicitedStart: 07-20-2023 End: 65-09-2561Ttpfsukty Result EncounterCorey April DO Work Phone: noms External Department UnsolicitedStart: 07-20-2023 End: 85-30-9737Cvbqqqdjs Result EncounterCorey April DO Work Phone: noms External Department UnsolicitedStart: 07-11-2023 End: 85-65-6982Osntmpfij Result EncounterCorey April DO Work Phone: noms External Department UnsolicitedStart: 07-11-2023 End: 31-58-1391Dzwugoqid Result EncounterCorey April DO Work Phone: noms External Department UnsolicitedStart: 04-30-2023 End: 67-08-7170Quqorw outpatient visit 15 minutesNedra Calderon MD Work Phone: uh [facility] HospitalComment on above:Seizure (CMS/HCC) (Primary Dx)Start: 11-25-2022 End: 07-63-0100krcuapeargBW WILLIS APRIL .Facility:L5Zbwhf: 11-16-2022 End: 05-67-1142jvwqcvgxplAA WILLIS APRIL .Facility:T1Pbypl: 30-39-8313Cpjehmj tobacco non-user cad cap copd pv dmMonminesh A Chapito Work Phone: mp-[facility] Work Phone: Start: 84-71-1009Lulzhulp preventive med est patient 18-39 yrsMonique A Chapito Work Phone: mp-[facility] Work Phone: Start: 14-31-5367cciqwmptbmUj. Koffi Uriarte Facility:[id number]: 04-16-2022 End: 32-35-7232brhkporsxgZYDHCT K BICANOVSKYFacility:[facility] Start: 92-07-1117Gajyulqbq encounterKavita Sweet DO Work Phone: OB/GynecologyComment on above:Bleeding With Start: 03-24-2022 End: 50-75-2779Rolpaxo encounter Harsh Hassan [facility] Start: 64-55-1035Psedqybsz encounterTammy Ryan [place] Work Phone: CB/GynecologyComment on above:AppointmentStart: 77-14-5372HPLJVBvcgvwc Alison Uriarte Work Phone: [phone]-Wlerefqto-[employer] DO Work Phone: Start: 82-36-9637jrdsewfjhmDnev Pattie PA-C Work Phone: OB/GynecologyComment on above:Bacteria VaginosisStart: 26-46-7284RNCQULdlpnnx Alison Uriarte Work Phone: mp[facility] Work Phone: Start: 63-92-2718Vowahb outpatient visit 15 minutes Koffi Uriarte Work Phone: [phone]-YreahtcfeAppiphany DO Work Phone: Start: 40-81-5646Omkoxs outpatient visit 15 minutes Koffi A Chapito Work Phone: [facility] Work Phone: Start: 16-52-4358RPHLGFunyuxe A Uriarte Work Phone: [facility] Work Phone: Start: 09-09-2021 End: 20-03-6780opdwpqhshzVMEC GLASENAPPFacility:[facility] Centertart: 07-04-2021 End: 54-29-5997czjexgogjyRPEAQ NEMETHFacility:[facility] Centertart: 30-37-8977Epanrivmo for gynecological examination (general) (routine) without abnormal findingsTAMMY [facility] HospitalStart: 73-35-2559Rppcol outpatient visit 25 minutesMonique A Chapito Work Phone: [phone]-Gftxeomxv-[facility] Work Phone: Start: 75-78-5660Nbptn UpdateMonique A Uriarte Work Phone: [facility] Work Phone: Start: 76-22-6067Lpletz outpatient visit 25 minutes Koffi Alison Uriarte Work Phone: [facility] Work Phone: Start: 33-52-1322Eypmcfk encounter procedureMonique A Uriarte Work Phone: [facility] Work Phone: Start: 71-52-5978RZGOPZuydzkl A Uriarte Work Phone: [facility] Work Phone: Start: 69-61-4853Ikkwd UpdateMonique A Uriarte Work Phone: [facility] Work Phone: Start: 53-99-5790Ptokmw outpatient visit 25 minutes Koffiminesh Uriarte Work Phone: [facility] Work Phone: Start: 05-31-8517Cjrdzfd encounter procedureMonique ZurqpkusftWK-Bzrobtbva-Suwjozuv SJW DO Work Phone: Start: 60-33-5831Qbgpngp encounter procedureMonique AunzwwmkjaOY-Clolsqert-Kilenptx SJ DO Work Phone: Start: 19-79-3884Htlohdk encounter procedureMonique DvxlukqlbeMW-HVDL-[place] Work Phone: Start: 05-09-2020 End: 44-50-8508Kwkumoc encounter procedureDAUnion County General Hospitaltart: 05-09-2020 End: 40-98-8604Udzlfqrabv hospital visit by physicianLorain Neuro 1EEGComment on above:ArrivedNonintractable generalized idiopathic epilepsy without status epilepticus (HCC)Start: 45-14-1054Vjdbnvw encounter procedureMonique Chapito IY-ZJEZ-[place] Work Phone: Start: 04-19-2020 End: 70-33-8737Brtqwqvvb department patient visitMICAMANDO Renteria Bannertart: 04-18-2020 End: 89-22-9612Sdlsszojg department patient visitMicdaquan [place]ong[place] Work Phone: [facility] EDComment on above:Seizure (HCC) (Primary Dx)Start: 47-05-6868Eeslkhb encounter procedureMonique Chapito WM-FYEQ-[place] Work Phone: Start: 38-01-8139BgmaswpoeiQubigrv A Richardson [facility] NormanPatient encounter statusKoffi Uriarte Work Phone: mp[facility] Work Phone: Procedures DateProcedureProcedure DetailPerforming ClinicianStart: 97-50-9296AAY CBC WITH AUTO DIFFAmy Mitchel VILLEDA Work Phone: Start: 29-34-4123Drbqn dip stick/tablet rgnt non-auto w/o micrscpAmy Mitchel VILLEDA Work Phone: Start: 92-33-4748YRG, SERUM, OPEN SPINA BIFIDAAmy Mitchel VILLEDA Work Phone: Start: 93-53-1875Bvnuo dip stick/tablet rgnt non-auto w/o micrscpCorey April DO Work Phone: Start: 07-85-5322TA OB ANATOMYCorey April DO Work Phone: Start: 42-82-6540UM OB CERVICAL LENGTHCorey April DO Work Phone: Start: 15-88-6489NWGVQCTBE VAGINITIS (HTRX)Roula VILLEDA Work Phone: Start: 52-70-8444Eakit dip stick/tablet rgnt non-auto w/o micrscpAmy Mitchel VILLEDA Work Phone: Start: 71-71-7975KGP,APTIMA HPV,AGE GDLNAmy Mitchel VILLEDA Work Phone: Start: 79-61-5399Nmfdhhokcqy observation [Identifier] in Cervix by Cyto stainCorey April DO Work Phone: Start: 85-90-8026Uqbjp dip stick/tablet rgnt non-auto w/o micrscpCorey April DO Work Phone: Start: 60-85-0246DXQ TESTCorey April DO Work Phone: Start: 01-12-2025 End: 62-56-7597Nnsik dip stick/tablet rgnt non-auto w/o micrscpCorey April DO Work Phone: Start: 146546-jlokxocnloueic D3 [Mass/volume] in Serum or PlasmaKoffi Uriarte MD Work Phone: Start: 79-19-9946Kfyiqcgsf (Vitamin B12) [Mass/volume] in Serum or PlasmaMonique Alison Uriarte MD Work Phone: Start: 15-17-5851Ywzxnbef blood countMonique Alison Uriarte MD Work Phone: Start: 86-33-5482Lffgkbtanrgng metabolic panelMonique Alison Uriarte MD Work Phone: Start: 36-89-7606Xprmg panelMonique Alison Uriarte MD Work Phone: Start: 62-21-0798PUP WITH REFLEX TO FREE T4 IF ABNORMALMonique Alison Uriarte MD Work Phone: Start: 96-85-3741Hxolw 1996 panel - Serum or Plasma Koffi Chapito REINOSO Work Phone: Start: 10-48-3818IF OB BPP W NON-STRESSCorey April DO Work Phone: Start: 96-90-3386ZO OB BPP W NON-STRESSCorey April DO Work Phone: Start: 73-83-8426WU OB BPP W NON-STRESSCorey April DO Work Phone: Start: 10-95-8284TL OB GROWTHCorey April DO Work Phone: Start: 52-88-9513ZM OB BPP W NON-STRESSCorey April DO Work Phone: Start: 85-63-1345Cvvqnmzkvzx observation [Identifier] in Cervix by Cyto stainNedra Calderon MD Work Phone: Start: 34-61-3260Gimhqlelsyp observation [Identifier] in Cervix by Cyto stainCorey April DO Work Phone: Start: 17-22-2528Gnuiaxomyye [Units/volume] in Serum or PlasmaNedra Calderon MD Work Phone: Start: 50-26-8161GCW W Auto Differential panel - Blood Koffi UriarteStart: 44-30-4937Gyhsxwvocijby metabolic 2000 panelMonique FruitlandStart: 72-63-3645Smmnugjevnup drug not elsewhere specifiedMonique FruitlandStart: 85-90-8578Izztnawckmn observation [Identifier] in Cervix by Cyto Valente Calderon MD Work Phone: Start: 18-94-0819GloqnfirrezritiadjzoYBKNCJS MAHAJAN Start: 27-31-4913EPYVLYMXB REPORTDALUIS RADHAStart: 78-39-1175MLOMZNHFX REPORTHpf ScanningStart: 31-99-7146Hfy brain brain stem w/o w/contrast material SPIKE RADHAStart: 61-11-5162Bznyppyyvwyotygtanpg w/rec awake&drowsyDAPHYSICIANS CARE [facility] RADHAStart: 19-94-0909Nbn brain brain stem w/o w/contrast materialDaluis Radha Work Phone: Start: 91-63-1322Lzunqmgftgsaeudkmgyr w/rec awake&drowsyDaluis Radha Work Phone: Start: 97-36-1126Zemjp of lactateMICHELE RALOFSKY Start: 20-12-7671Hslqs of prolactinMICHELE RALOFSKYStart: 58-52-0639Ks head/brain w/o contrast materialMICHELE RALOFSKYStart: 81-20-4628Ufmfttxkrl microscopic onlyMICHELE RALOFSKYStart: 64-15-8087Uvpid dip stick/tablet rgnt auto w/o microscopyMICHELE RALOFSKYStart: 64-90-3501Bsvfg count complete auto&auto difrntl wbcMICHELE RALOFSKYStart: 31-49-2160Gqshizwevvegf metabolic panelMICHELE RALOFSKYStart: 74-32-1525Kadysiknpjtl chorionic qualitativeMICHELE RALOFSKYStart: 24-69-4553UBKL NPO, NOWMICHELE RALOFSKYStart: 45-14-8800EQXKWGV PRECAUTIONSMICHELE RALOFSKYStart: 75-82-8804KNGKFG LOCK IVMICHELE RALOFSKYStart: 40-27-3554Irjkq of lactateMichael S Angora Work Phone: Start: 86-13-2836Srvhrikufg microscopic onlyMichael S Angora Work Phone: Start: 69-92-3381Kdkef dip stick/tablet rgnt auto w/o microscopyMichael S Angora Work Phone: Start: 55-09-6938Axukt count complete auto&auto difrntl wbcMichael S Angora Work Phone: Start: 66-96-7340Iheitajwhzqsg metabolic panelMichael S Angora Work Phone: Start: 13-27-3056Arcvmiucaguq chorionic qualitative Tu S Angora Work Phone: History of No history of surgeryMonique ChapitoNo history of surgeryMonique A Uriarte Work Phone: Plan of Treatment DateCare ActivityDetailAuthorStart: 28-13-6554Mstvug Vaccines (1 of 2)Zoster Vaccines (1 of 2)[facility]: 50-83-4140ROmE/Tdap/Td Vaccines (9 - Td or Tdap)DTaP/Tdap/Td Vaccines (9 - Td or Tdap)[facility]: 60-77-5853Ivocc panelLipid PanelUnAdena Regional Medical Center: 71-40-2758Nvqojjwaz for malignant neoplasm of cervixNOMS HealthcareStart: 97-91-6327ZBfK/Tdap/Td Vaccines (8 - Td or Tdap) DTaP/Tdap/Td Vaccines (8 - Td or Tdap)[facility]: 32-13-4505Cxeguzjgu for malignant neoplasm of cervixUnAdena Regional Medical Center: 95-62-7713Dgwctamql for malignant neoplasm of cervixNOMS HealthcareStart: 05-29-2025 End: 64-77-0722Anrvjwt encounter procedureNOMS Giselle OBGYNComment on above: ArrivedStart: 05-07-2025 End: 25-05-3897Tibaave encounter gposjlcnj29/20/2025 2:00 PM EDT Office Visit [address] [place] [phone] [place] [address] [facility] [address] [place] [address] [facility]: 04-30-2025 End: 67-17-0549ZUO panel - Blood by Automated countCBC Lab Routine Diabetes mellitus screening Expected: 04/30/2025 (Approximate), Expires: 04/30/2026[facility] Work Phone: comment on above:Expected: 04/30/2025 (Approximate), Expires: 04/30/2026Start: 04-30-2025 End: 76-40-1948Juetxrkvemg of glucose 1 hour after glucose challenge for glucose tolerance testGlucose tolerance, 1 hour Lab Routine Diabetes mellitus screening Expected: 04/30/2025 (Approximate), Expires: 04/30/2026[facility] HealthcareComment on above:Expected: 04/30/2025 (Approximate), Expires: 04/30/2026Start: 04-30-2025 End: 45-22-4666Ntqjzrz encounter qdfrhbder14/13/2025 9:50 AM EDT Routine [facility] G[facility]elle LAYTON [address] [place], [phone] Roula Grullon PA [address] [place] [address] [facility]elle OBGYNStart: 04-04-2025 End: 19-31-4814Icywhwt encounter nxxhiidie18/17/2025 3:10 PM EDT Routine [facility] G[facility]elle WOODGYN [address] [place], [phone] Willis Chen DO [address] [place] [address] NOMShaina [place] OBGYNStart: 20-45-9979QSVGU- 19 Vaccine ( season)COVID-19 Vaccine ( season)[facility] HealthcareStart: 39-58-0077Qqlpvsygr vaccinationInfluenza Vaccine (#1)[facility] HealthcareStart: 03-14-2025 End: 44-69-6323Kxtckkmpxfsa / ancillary services gqxicbrufd71/27/2025 3:00 PM EDT Ancillary Procedure [facility] [address] [place] [address] SPGX Giselle OBGYNStart: 03-07-2025 End: 99-32-5329Jjqcerd encounter procedureNOMS [place] OBGYNComment on above: ArrivedStart: 03-07-2025 End: 83-40-5854Kxzzr fetoprotein, maternalAlpha fetoprotein, maternal Lab Routine Second trimester ([facility]) 16 weeks gestation of ([facility]) Expected: 03/07/2025 (Approximate), Expires: 09/07/2025[facility] Comment on above:Expected: 03/07/2025 (Approximate), Expires: 09/07/2025Start: 03-07-2025 End: 18-74-7985QI for pregnancyUS OB 14+ weeks anatomy scan Imaging Routine Screening, , for anatomic survey ([facility]) Expected: 03/07/2025, Expires: 06/07/2025[facility] HealthcareComment on above:Expected: 03/07/2025, Expires: 06/07/2025Start: 02-21-2025 End: 32-97-2449Laxjavqjabnh / ancillary services qagtmqdtpi48/06/2025 3:00 PM EDT Ancillary Procedure [facility] [place] [facility] [address] [place] [place] [address] GUAS Giselle OBGYNStart: 02-12-2025 End: 47-61-5074Awgtklg encounter najhmajuw13/28/2025 2:20 PM EDT Office Visit [facility] [address] [place] [phone] [place] [address] [address] [facility] Primary CareStart: 02-07-2025 End: 51-27-0985Dcbwdug encounter procedureNOCOMMUNITY HOSPITAL OF [facility] OBComment on above:Arrived Start: 02-07-2025 End: 36-56-8946FR for pregnancyUS OB less than 14 weeks early Imaging Routine Missed menses Subchorionic hematoma in second trimester, single or unspecified fetus ([facility]) Expected: 02/07/2025, Expires: 05/10/2025[facility] Work Phone: comment on above:Expected: 02/07/2025, Expires: 05/10/2025Start: 02-01-2025 End: 67-38-8900Kfavrtq encounter zqaoqdjzy69/17/2025 9:20 AM EDT Office Visit [facility] [address] [place] [address] Roula Grullon PA [address] [place] [address] ArrivedJOHN [facility] OBComment on above:ArrivedStart: 01-12-2025 End: 24-30-7162SSH/RhABO/Rh Lab Routine Missed menses , unspecified gestational age ([facility]) Expected: 01/12/2025 (Approximate), Expires: 01/12/2026[facility] HealthcareComment on above:Expected: 01/12/2025 (Approximate), Expires: 01/12/2026Start: 01-12-2025 End: 67-71-6434Uiysm type and Indirect antibody screen panel - BloodType and screen Lab Routine Missed menses , unspecified gestational age ([facility]- [facility]) Expected: 01/12/2025 (Approximate), Expires: 01/12/2026[facility] Work Phone: comment on above:Expected: 01/12/2025 (Approximate), Expires: 01/12/2026Start: 01-12-2025 End: 72-76-1351Ydtic of abuse panel - Urine by Screen methodRapid drug screen, urine Lab Routine , unspecified gestational age ([facility]) Encounter for supervision of normal first in first trimester ([facility]) Expected: 01/12/2025 (Approximate), Expires: 01/12/2026[facility] HealthcareComment on above: Expected: 01/12/2025 (Approximate), Expires: 01/12/2026Start: 05-03-2024 End: 23-24-9176sklzKWShufy [Mass/volume] in Serum or PlasmaLamotrigine level Lab Routine Seizure (Multi) Expected: 05/03/2024 (Approximate), Expires: 05/03/2025 [facility] [[email or web address]] Service Area Work Phone: comment on above:Expected: 05/03/2024 (Approximate), Expires: 05/03/2025Start: 17-97-2426JNTJY-19 Vaccine ( season)COVID- 19 Vaccine ( season)[facility]: 37-40-2142JZFBB-19 Vaccine ( season)COVID-19 Vaccine ( season)[facility]: 77-03-1812Atszoxklz vaccination Influenza Vaccine (#1)[facility]: 10-02-2023 Screening for malignant neoplasm of cervixHPV/CotestNOMS HealthcareStart: 81-15-5569PWQUNJXK, Provider: Koffi Uriarte, Status: Pen, Time: 9:00 AM PHYSICAL, Provider: Koffi Uriarte, Status: Pen, Time: 9:00 XYTA-CUHC-[place] Work Phone: Start: 08-02-2023 End: 49-52-6277Sisdkzq encounter /15/2024 9:00 AM EST Office Visit [facility] [address] [place] [phone] [place] [address] [place] [address] [facility] CenterStart: 92-03-1636WOT TESTINGPAP TESTINGDetwiler Memorial Hospitaltart: 83-80-2467Gjkiadirt for malignant neoplasm of cervixDoctors Hospital: 12-24-2022 VIRFUVHOME, Provider: Nedra Calderon, Status: Pen, Time: 10:00 AMVIRFUVHOME, Provider: Nedra Calderon, Status: Pen, Time: 10:00 NJWZ-Qmhwmwunz-Nbfcqmrb [employer] DO Work Phone: Start: 93-73-7733CCEEPCFK, Provider: Koffi Uriarte, Status: Pen, Time: 9:50 AMPHYSICAL, Provider: Koffi Uriarte, Status: Pen, Time: 9:50 PFRU-NBDD-Gkqm [place] Work Phone: Start: 03-24-2022 End: 20-58-2608Tfscykarbykzaymxwa.beta subunit [Units/volume] in Serum or Plasma HCG QUANTITATIVE Lab Routine Bleeding in early Expected: 03/24/2022, Expires: 05/24/2022[facility] Work Phone: Comment on above:Expected: 03/24/2022, Expires: 05/24/2022tart: 37-93-1639Wibnrewny vaccinationINFLUENZA (#1)[facility] Start: 88-30-6255Pmlnegi stimulating hormone measurementOklahoma City Veterans Administration Hospital – Oklahoma CityStart: 92-24-0491WKKNMJLNFY, Provider: Nedra Calderon, Status: Pen, Time: 11:30 AMFUVGENERAL, Provider: Nedra Calderon, Status: Pen, Time: 11:30 HMNW-Laiblcqoy-Yvfctssm SJW DO Work Phone: Start: 81-64-8281QOV, Provider: Koffi Uriarte, Status: Pen, Time: 1:00 PMFUV, Provider: Koffi Uriarte, Status: Pen, Time: 1:00 VMOL-TEWG-Rtjk [place] Work Phone: Start: 27-25-5980SQMNG-19 VACCINE (3 - Booster for Pfizer series)COVID-19 VACCINE (3 - Booster for Pfizer series)[facility] Start: 90-20-4845ZISZDPFRHT, Provider: Nedra Calderon, Status: Pen, Time: 2:00 PMFUVGENERAL, Provider: Nedra Calderon, Status: Pen, Time: 2:00 EISJ-XJWQ-[place] Work Phone: Start: 04-48-7459BUXTBLXOLL, Provider: Nedra Calderon, Status: Pen, Time: 11:00 AMFUVGENERAL, Provider: Nedra Calderon, Status: Pen, Time: 11:00 GQMC-XEKA-[place] Work Phone: Start: 70-32-5775YTC, Provider: Koffi Uriarte, Status: Pen, Time: 3:40 PMFUV, Provider: Koffi Uriarte, Status: Pen, Time: 3:40 MOQR-LBVL-Jpdx [place] Work Phone: Start: 27-64-3969IGH, Provider: Koffi Uriarte, Status: Pen, Time: 2:00 PMFUV, Provider: Koffi Uriarte, Status: Pen, Time: 2:00 QGPA-GUOE-Bbjh [place] Work Phone: Start: 62-60-7293MSTYR-19 Vaccine (3 - Pfizer series) COVID-19 Vaccine (3 - Pfizer series)[facility]: 27-04-2368DOB Vaccines (1 - 3-dose SCDM series)HPV Vaccines (1 - 3-dose SCDM series)[facility] SystemStart: 34-29-8088Nuhoeahvs vaccinationFlu vaccine (#1) [facility]: 72-35-9603HEnZ/Tdap/Td vaccine (7 - Td)DTaP/Tdap/Td vaccine (7 - Td)[facility]: 40-35-2073Sqeee microalbumin profile DTAP,TDAP,TD (7 - Td or Tdap)[facility] Hospitaltart: 95-02-9993Eqlaqbrbr for malignant neoplasm of cervixUnBethesda North HospitalStskokie: 2012 Hepatitis B Vaccines (1 of 3 - 19+ 3-dose series)Hepatitis B Vaccines (1 of 3 - 19+ 3-dose series)[facility] SystemStart: 17-30-3520VMFHLZFUY C SCREENINGHEPATITIS C SCREENINGDetwiler Memorial Hospitaltart: 47-99-0277Sozrohwbx C screeningHepatitis C ScreeningDoctors Hospital: 99-38-0320EMI SCREENINGHIV SCREENINGDetwiler Memorial Hospitaltart: 67-32-6843DJN screeningHIV screenTrinity Health System [facility]: 09-02-4746Tpqsulh of varicella vaccinationVaricella Vaccines (1 of 2 - 13+ 2-dose series)[facility] SystemStart: 28-31-9356Yqkgfiqzt vaccination Varicella Vaccines (1 of 2 - 13+ 2-dose series)[facility] Start: 09-96-1140Aeqcl depression screening assessmentDEPRESSION SCREENING [facility] Hospitaltart: 31-48-7346FLM vaccine (1 - 2-dose series)HPV vaccine (1 - 2-dose series)[facility]: 69-35-8729DLvR/Tdap/Td Vaccines (1 - Tdap)DTaP/Tdap/Td Vaccines (1 - Tdap)[facility] SystemStskokie: 88-96-7314Hviiqkonk vaccinationVaricella Vaccines (1 of 2 - 2-dose childhood series)[facility]: 11-61-3620AYL Vaccines (1 of 1 - Standard series) MMR Vaccines (1 of 1 - Standard series)[facility] SystemStart: 08-09-8018Mpvxtauty vaccine (1 of 2 - 2-dose childhood series)Varicella vaccine (1 of 2 - 2-dose childhood series)[facility]: 57-98-9722RSQ screeningHIV Screening [facility]: 72-71-3183Quuiq panelLipid Panel [facility]: 44-01-0664Kstggp Adult PhysicalYearly Adult PhysicalUnBethesda North HospitalBacteria identified in Urine by CultureUrine culture Microbiology Routine Missed menses Ordered: 01/12/2025[facility] HealthcareComment on above:Ordered: 01/12/2025BC W Auto Differential panel - BloodCBC and differential Lab Routine Missed menses , unspecified gestational age ([facility]) Ordered: 01/12/2025[facility] HealthcareComment on above: Ordered: 01/12/2025HLAMYDIA TRACHOMATIS (GENITO/STI)CHLAMYDIA TRACHOMATIS (GENITO/STI) Lab Routine STD exposure Ordered: 03/07/2025[facility] HealthcareComment on above:Ordered: 03/07/2025 End: 09-04-7632PK Head WO ContrastCT Head WO Contrast Imaging STAT Once for 1 Occurrences starting 04/18/2020 until 04/18/2020[facility], [place]Comment on above:Once for 1 Occurrences starting 04/18/2020 until 04/18/2020CT Head WO ContrastCT Head WO Contrast Imaging STAT 04/18/2020 11:[address] [facility], KYCytology Cervical or vaginal smear or scraping studyPap Smear Pathology and Cytology Routine Well woman exam with routine gynecological exam Ordered: [facility] HealthcareComment on above:Ordered: 03/07/2025Hemoglobin A1c/Hemoglobin.total in BloodHemoglobin A1c Lab Routine Missed menses , unspecified gestational age ([facility]) Ordered: 01/12/2025[facility] HealthcareComment on above:Ordered: 01/12/2025Hepatitis B virus surface Ag [Presence] in Serum or Plasma by ImmunoassayHepatitis B surface antigen Lab Routine Missed menses , unspecified gestational age ([facility]) Ordered: 01/12/2025[facility] HealthcareComment on above:Ordered: 01/12/2025Hepatitis C virus Ab [Presence] in Serum or Plasma by ImmunoassayHepatitis C antibody Lab Routine Missed menses , unspecified gestational age ([facility]) Ordered: 01/12/2025[facility] HealthcareComment on above:Ordered: 01/12/2025HIV-1/HIV-2 antigen/antibody combination immunoassayHIV-1 and HIV-2 antibodies Lab Routine Missed menses , unspecified gestational age ([facility]) Ordered: 01/12/2025[facility] HealthcareComment on above:Ordered: 01/12/2025Human papilloma virus DNA [Presence] in Unspecified specimen by Probe with amplificationHPV DNA probe, amplified Microbiology Routine Well woman exam with routine gynecological exam Ordered: 03/07/2025[facility] HealthcareComment on above:Ordered: 03/07/2025Neisseria gonorrhoeae DNA [Presence] in Unspecified specimen by HUMERA with probe detection Neisseria gonorrhea DNA probe, direct Lab Routine STD exposure Ordered: 03/07/2025[facility] HealthcareComment on above:Ordered: 03/07/2025 End: 69-07-5303XhorcjgocWrlzbmaqw Lab STAT One Time for 1 Occurrences starting 04/18/2020 until 04/18/2020[facility], KYComment on above:One Time for 1 Occurrences starting 04/18/2020 until 04/18/2020ProlactinProlactin Lab STAT 04/18/2020 11:17 PM [facility] [place], KYReagin Ab [Presence] in Serum by RPR RPR Lab Routine Missed menses , unspecified gestational age ([facility]) Ordered: 01/12/2025[facility] HealthcareComment on above:Ordered: 01/12/2025Rubella antibody, IgGRubella antibody, IgG Lab Routine Missed menses , unspecified gestational age ([facility]) Ordered: 01/12/2025[facility] HealthcareComment on above:Ordered: 01/12/2025SURESWAB(R) ADVANCED VAGINITIS PLUS, TMASURESWAB(R) ADVANCED VAGINITIS PLUS, TMA Pathology and Cytology Routine Vaginal discharge Ordered: 03/07/2025[facility] Healthcare Work Phone: comment on above:Ordered: 03/07/20253376LJ[facility] [place] Work Phone: [facility]NEGATED: Highlighted row has been ruled out!Planned Goals not afjshxhvonWF-WJGI-[place]ww [place] Work Phone: Immunizations Immunization DateImmunizationNotesCare [id number] B vaccine, adult dosageKoffi Uriarte MD Work Phone: [facility] Work Phone: [phone] toxoid, reduced diphtheria toxoid, and acellular pertussis vaccine, adsorbedKoffi Uriarte MD Work Phone: [facility] Work Phone: [phone], injectable, quadrivalent, preservative freeMonique Chapito REINOSO Work Phone: [facility]10-05-2023influenza virus vaccine, unspecified formulationNedra Calderon MD Work Phone: [facility] Work Phone: [phone], injectable, quadrivalent, preservative freeMonique A Chapito Work Phone: [facility] Work Phone: [phone], injectable, quadrivalent, preservative freeMonique A Uriarte Work Phone: mp-WSPCKineMed Work Phone: [phone]-PhdAFlpb COVID-19 Vacc 30 MCG/0.3ML Intramuscular SuspensionMonique A Chapito Work Phone: mp-[employer] Work Phone: [phone]-GjgRJfou COVID-19 Vacc 30 MCG/0.3ML Intramuscular SuspensionMonique A Chapito Work Phone: mp-WSPCCallida EnergyFort Lauderdale Work Phone: [phone]eol, injectable, Madin Porter Canine Kidney, preservative free, quadrivalentMonique A Chapito Work Phone: mp-WSPCKineMed Work Phone: [phone], injectable, quadrivalent, contains preservativeMonique A Chapito Work Phone: mp-WSPCKineMed Work Phone: [phone] toxoid, reduced diphtheria toxoid, and acellular pertussis vaccine, adsorbedMonique A Uriarte Work Phone: mp-WSPCVayyarFort Lauderdale Work Phone: [phone]jns, injectable, quadrivalent, preservative freeWestern [facility] Medical Center Alison ClementeUriarte Work Phone: mp-WSPCVayyarFort [place]uderd[place] Work Phone: [phone]ocsct polysaccharide vaccine, 23 valentMongood hope hospital A Uriarte Work Phone: mp-WSPCAltatechFort Lauderdale Work Phone: [phone]ydi skin test; purified protein derivative solution, intradermalGeisinger Community Medical Center, [place] 69-38-0765rgmbyccbff skin test; purified protein derivative solution, intradermalGeisinger Community Medical Center, TS22-02-5023mcfmasa toxoid, reduced diphtheria toxoid, and acellular pertussis vaccine, adsorbedRegency Hospital Toledo08-10-2007meningococcal polysaccharide (groups A, C, Y and W-135) diphtheria toxoid conjugate vaccine (MCV4P)[facility], DK60-62-7683Kxactqgbputti, MCV4, unspecified conjugate formulation(groups A, C, Y and W-135)[facility] 91-07-1325lpikbiafvy, tetanus toxoids and acellular pertussis vaccineRegency Hospital [facility]edo08-25-1999diphtheria, tetanus toxoids and acellular pertussis vaccine, unspecified formulationAtrium Health Union West Uriarte Work Phone: mp-WSPCVayyarFort [place]uderd[place] Work Phone: [phone]qh influenzae type b vaccine, HbOC conjugateRegency Hospital Toledo08-25-1999measles, mumps and rubella virus vaccineRegency Hospital [facility]edo08-25-1999poliovirus vaccine, inactivatedGeisinger Community Medical Center, WC47-83-0163vmmwibzuf poliovirus vaccine, live, oralGeisinger Community Medical Center, LU45-98-8052wiytqknhpy, tetanus toxoids and acellular pertussis vaccineRegency Hospital [facility]edo06-22-1995diphtheria, tetanus toxoids and acellular pertussis vaccine, unspecified formulationWestern [facility] Medical Center A Chapito Work Phone: mp-WSPC-[place] Work Phone: [phone]wn influenzae type b vaccine, conjugate unspecified formulationGeisinger Community Medical Center, [place] 56-35-5116tkctnkhzotw influenzae type b vaccine, PRP-OMP conjugateWestern [facility] Center A Uriarte Work Phone: mp-WSPC-[place] Work Phone: [phone], unspecifiedGeisinger Community Medical Center, [place]08-81-8572mgxxdor, mumps and rubella virus vaccineRegency Hospital [facility]edo04-06-1995poliovirus vaccine, inactivatedRegency Hospital [facility]edo12-01-1994hepatitis B vaccine, pediatric or pediatric/adolescent dosageWestern [facility] Center A Uriarte Work Phone: cMercy Health Allen HospitalNbezcs77-90-5844wrajmpcoe B vaccine, unspecified formulationGeisinger Community [facility], QU35-89-7564 diphtheria, tetanus toxoids and acellular pertussis vaccineLehigh Valley Health Network, OY06-15-1101gniosnvstq, tetanus toxoids and pertussis vaccine [facility]09-29-1994haemophilus influenzae type b vaccine, conjugate unspecified formulationGeisinger Community Medical Center, HY26-60-9102ecgywywburk influenzae type b vaccine, HbOC conjugateSara Glassilvia PA-C Work Phone: [facility] CenterFserby61-54-6044axsyydaczob influenzae type b vaccine, PRP-OMP conjugateWestern [facility] Center A Uriarte Work Phone: mp-WSPCAltatechFort [place]uderd[place] Work Phone: [phone], unspecifiedGeisinger Community Medical Center, RK23-83-5754akbsikejbv vaccine, inactivatedMicKettering Health Dayton09-29-1994trivalent poliovirus vaccine, live, oralGeisinger Community Medical Center, OX69-11-4717waqltgqmvf, tetanus toxoids and acellular pertussis vaccineGeisinger Community Medical Center, YO87-21-1690 diphtheria, tetanus toxoids and pertussis vaccineRegency Hospital [facility]edo07-28-1994haemophilus influenzae type b vaccine, conjugate unspecified formulationGeisinger Community [facility] Center, ZN19-31-5058ysiaqtcverq influenzae type b vaccine, HbOC conjugateSara Glasenapp PA-C Work Phone: [facility] CenterCpkedt40-43-3501atxuqxoofze influenzae type b vaccine, PRP-OMP conjugateMonique A Uriarte Work Phone: [employer] Work Phone: [phone], unspecifiedGeisinger Community Medical Center, DC69-88-6925tvkddbfhxl vaccine, inactivatedL[facility] Hospital07-28-1994trivalent poliovirus vaccine, live, oralGeisinger Community Medical [facility], XC38-26-5267dennlsrdb B vaccine, pediatric or pediatric/adolescent dosageMonique A Uriarte Work Phone: cMercy Health Allen HospitalUzraxa36-86-5536hzoelglmp B vaccine, unspecified formulationGeisinger [facility], AN40-40-0977 diphtheria, tetanus toxoids and acellular pertussis vaccineCoatesville Veterans Affairs Medical Center GJ96-34-8278qbtwdxtxei, tetanus toxoids and pertussis vaccine [facility]05-19-1994haemophilus influenzae type b vaccine, conjugate unspecified formulationGeisinger Community [facility] Center, TU78-88-3387pzzpvpgdyai influenzae type b vaccine, HbOC conjugateSara Glasenapp PA-C Work Phone: [facility] CenterMpstpj64-45-6064sqxekamqhwq influenzae type b vaccine, PRP-OMP conjugateMonique A Uriarte Work Phone: [employer] Work Phone: [phone]gb B vaccine, pediatric or pediatric/adolescent dosageMonminesh Uriarte Work Phone: cMercy Health Allen HospitalLwjlvv68-91-9692znwbcflyb B vaccine, unspecified formulationGeisinger [facility], US64-11-9738Ckv, unspecifiedGeisinger Community [facility], OX81-33-2047yjwanvtrey vaccine, inactivatedMicOur [facility] of [facility]05-19-1994trivalent poliovirus vaccine, live, oralMicSelect [facility] [place], [place] Payers DatePayer CategoryPayerPolicy [id number] [facility] [id number] 42-50-8694Ptyh-gjz95-49-8499Bbanyio Care (Private) [id number]0-37-4272Rtewylc Health Raxhwghkh8846828490-41-1700Xgboyiz Health Insurance [id number]2-4051 UnknownMMO MMO SUPERMED PLUS [id number] 2020-Present [phone] [address] [place] [address] [id number] 1.2.840.449771.1.13.159.2.7.3.37885[id number] [id number] 2.16.840.1.408604.3.57[id number] 2.16.840.1.516355.3.57[id number] 2..840.1.481065.3.57[id number] 2.840.1.380312.3.57[id number] 2.840.1.137039.3.57[id number] 2.840.1.456357.3.57[id number] 2.840.1.506148.3.57[id number] 2.840.1.911319.3.57[id number] 2.840.1.765082.3.57[id number] 2.840.1.321124.3.57[id number] 2.840.1.855232.3.57[id number] 2.840.1.729166.3.57[id number] 2.840.1.987714.3.57[id number] 2.840.1.787333.3.57[id number] 2.16.840.1.407019.3.57[id number] 2.16.840.1.221692.3.57[id number] 2.16.840.1.448024.3.579.[id number] 2.16.840.1.260226.3.579.2.[id number] 2.16.840.1.031870.3.57[id number] 2.16.840.1.947399.3.579.[id number] 1.2.840.232073.1.13.239.2.7.3.193033.101Ed[id number] 2.16.840.1.7641[id number] 8o04tn3y-8h3e-13gk-36n5-l28h78foen75 Social History DateTypeDetailFacilityStart: 04-18-2020 End: 40-46-6001Nvvkesu smoking status NHISNever smokerDetwiler Memorial Hospitaltart: 04-18-2020 End: 94-01-9240Dzmixca use and exposureNever usedTrinity Health System [facility]: 04-18-2020 End: 16-03-4134Rgdfuln intakeCurrent drinker of alcohol (finding)[facility]: 22-21-5952Xbqufih SDOH Xfsellmnj1XhpdkTrinity Health System West Campus: 89-06-8205Wfhpbyi SDOH Food Bilit6VftobTrinity Health System West Campus: 71-32-8297Eyujrhp SDOH Transport Fti3OsproTrinity Health System West Campus: 16-42-8725Useyrzs Comment occasionallyTrinity Health System West Campus: 10-00-4739Umk Assigned At BirthNot on [place], [place]: 04-20-2023 End: 92-55-4446Sfmsgowe to SARS-CoV-2 (event)Not [facility] Hospitalart: 05-03-2024 End: 92-82-2789Kypne smokerNever dnsyyyBG-DRGD-[place] Work Phone: Start: 90-82-1560Ghtocga smoking statusNeverDayton Osteopathic Hospitaltart: 05-03-2024 End: 47-00-5991Zqh Assigned At [facility] Beachwoodtart: 30-98-7585Ztu Assigned At [facility] Centertart: 14-37-3212Xjxkpwfjj beverage intakeEx-drinker (finding)[facility] Work Phone: How often to you have a drink containing alcohol?Never [facility] Work Phone: Start: 04-23-2024 End: 99-67-5586Ihtgzept to SARS-CoV-2 (event)YesMercy HospitalStart: 82-73-0900Zkzuntt CommentSociallyMercy Hospital Work Phone: Tobacco smoking status NHISTobacco smoking consumption unknownNOHI HealthcareStart: 16-17-1269VhyxwvmnlSMVK HealthcareStart: 51-07-0695Uyrexw identityIdentifies as female gender (finding)[facility] Start: 85-99-6770Ftyapy orientationHeterosexual (finding)[facility] HealthcareNEGATED: Highlighted row--RB-HJMC-OvacHipster Work Phone: NEGATED: Highlighted rowStart: NINFHistory of tobacco usePassive smokerMercy Hospital Work Phone: Goals DatePatient GoalDesired Activity/StatePersonal health goal Functional Status DateAssessmentResultFacilityNEGATED: Highlighted rowFunctional performance Functional status health issues are not documented WrmxugaTR-SNRH-[place] Work Phone: Mental Status DateAssessmentResultFacilityNEGATED: Highlighted rowCognitive function [Interpretation]Cognitive status health issues are not documented Disease BP-FXCD-[place] Work Phone: Clinical Notes 08-09-2017 to 04-30-2025 Note Date & DzekXretVmvwsuvu34-67-3541 History of Present illness Narrative* CHRISTIANA Mills [...] Problems Diagnosis Date Noted Hypertension 01/14/2023 Seizure ([facility]) 07/09/2021 Breech presentation, no version ([facility]) 07/29/2023 Resolved Ambulatory Problems Diagnosis Date [...] ASSESSMENT & PLAN ICD-10-CM 1. Second trimester ([facility]) Z34.92 2. 24 weeks gestation of ([facility]) Z3A.24 3. Hypertension, unspecified type I10 4. Seizure ([facility]) R56.9 Return OB: Patient presents today for a routine obstetrics appointment. Patient is currently 24w0d . Patient states she is doing well but has complaints of being tired due to current . Patient has verbalizes frequent movement. labor precautions was discussed/given and patient was instructed to perform kick counts three times a day. Pt was given 1-hr glucose order to obtain at [facility]. No orders of the defined types were placed in this encounter. Follow Up: Patient is to return to office in 4 weeks for routine OB appointment. Documented by Kim Sousa MA on behalf of: CHRISTIANA Mills documented in this encounterFreeman Health SystemJfuhwgjnvk33-68-0190 History of Present illness Narrative* Willis Chen [...] Problems Diagnosis Date Noted Hypertension 01/14/2023 Seizure ([facility]) 07/09/2021 Breech presentation, no version ([facility]) 07/29/2023 Resolved Ambulatory Problems Diagnosis Date [...] nursing note reviewed. Exam conducted with a enterprise account manager present. Vitals: Estimated body mass index is 27.04 kg/m as calculated from the following: Height as of 11/16/22: 5' 9 . Weight as of this encounter: 183 lb 1.9 oz. BP: 110/70 Patient's last menstrual period was 11/13/2024. Assessment/Plan Encounter Diagnosis: ICD-10-CM 1. 20 weeks gestation of ([facility]) Z3A.20 POCT urinalysis dipstick manually resulted 2. Second trimester ([facility]) Z34.92 POCT urinalysis dipstick manually resulted Return [...] of: Willis Chen DO documented in this encounterFreeman Health SystemTatveybzms09-44-7551 History of Present illness Narrative* CHRISTIANA Mills [...] Problems Diagnosis Date Noted Hypertension 01/14/2023 Seizure ([facility]) 07/09/2021 Breech presentation, no version ([facility]) 07/29/2023 Resolved Ambulatory Problems Diagnosis Date [...] HPV DNA probe, amplified 2. Second trimester ([facility]) Z34.92 POCT urinalysis dipstick manually resulted Alpha fetoprotein, maternal Alpha fetoprotein, maternal 3. 16 weeks gestation of ([facility]) Z3A.16 POCT urinalysis dipstick manually resulted Alpha fetoprotein, maternal Alpha fetoprotein, maternal 4. Vaginal discharge N89.8 SURESWAB(R) ADVANCED VAGINITIS PLUS, TMA 5. STD exposure Z20.2 CHLAMYDIA TRACHOMATIS (GENITO/STI) Neisseria gonorrhea DNA probe, direct 6. Screening, , for anatomic survey ([facility]) Z36.89 OB 14+ weeks anatomy scan Return OB/Annual Exam: Patient presents today for an annual exam/routine obstetrics appointment. Patient is currently 16w2d . Patient is doing well and states she has no complaints. Pap/cultures was obtained without difficulty and patient was given msAFP order to have obtained. Orders Placed This Encounter Procedures HPV DNA probe, amplified US OB 14+ weeks anatomy scan CHLAMYDIA TRACHOMATIS (GENITO/STI) Neisseria gonorrhea DNA probe, direct Alpha fetoprotein, maternal POCT urinalysis dipstick manually resulted Follow Up: Patient is to return to our office in 4 weeks for routine OB appointment Documented by CHRISTIANA Mills on behalf of: CHRISTIANA Mills documented in this encounterFreeman Health SystemPdofuilpzv17-14-3966 History of Present illness Narrative* Cyndi Andrade, SORT SUPERVISOR - 02/07/2025 3:10 PM EDT Reason for [...] Problems Diagnosis Date Noted Hypertension 01/14/2023 Seizure ([facility]) 07/09/2021 Breech presentation, no version ([facility]) 07/29/2023 Resolved Ambulatory Problems Diagnosis Date [...] nursing note reviewed. Exam conducted with a enterprise account manager present. Vitals: Estimated body mass index is 26.11 kg/m as calculated from the following: Height as of 11/16/22: 5' 9 . Weight as of this encounter: 176 lb 12.8 oz. BP: 114/74 Patient's last menstrual period was 11/13/2024. ASSESSMENT & PLAN ICD-10-CM 1. First trimester ([facility]) Z34.91 POCT urinalysis dipstick manually resulted 2. 12 weeks gestation of ([facility]) Z3A.12 POCT urinalysis dipstick manually resulted New [...] or undercooked meat, and stay away from [facility] center. Patient has been consulted regarding any further do's and don'tsof . Patient voiced understanding and all questions and concerns were answered. Orders Placed This Encounter Procedures POCT urinalysis dipstick manually resulted Follow Up: Patient is to return in 4 weeks for routine OB appointment. Documented by Cyndi Andrade LPN on behalf of: Willis Chen DO documented in this encounterFreeman Health SystemUzguhftkgw92-52-9802 History of Present illness Narrative* CHRISTIANA Mills [...] Problems Diagnosis Date Noted Hypertension 01/14/2023 Seizure ([facility]) 07/09/2021 Breech presentation, no version ([facility]) 07/29/2023 Resolved Ambulatory Problems Diagnosis Date [...] ASSESSMENT & PLAN ICD-10-CM 1. First trimester ([facility]) Z34.91 2. 11 weeks gestation of ([facility]) Z3A.11 Patient is presents for er follow [...] behalf of: CHRISTIANA Mills documented in this encounterFreeman Health SystemJcnkefzltt58-02-6519 History of Present illness Narrative* Damaris Agosto [...] oz F CS-LTranv JACKSON Complications: Breech presentation ([facility]) 1 AB Obstetric Comments Last pap smear date 2 years ago Current Medications: has a current medication list which includes the following prescription(s): labetalol, lamotrigine,and mv-min-fe fum-fa-dha. Medical History: Active Ambulatory Problems Diagnosis Date Noted Hypertension 01/14/2023 Seizure ([facility]) 07/09/2021 Breech presentation, no version ([facility]) 07/29/2023 Resolved Ambulatory Problems Diagnosis Date [...] dipstick manually resulted , unspecified gestational age ([facility]) - Type and screen; Future - ABO/Rh; Future - CBC and differential - Hemoglobin A1c - RPR - Rubella antibody, IgG - Hepatitis B surface antigen - Hepatitis C antibody - HIV-1 and HIV-2 antibodies - Rapid drug screen, urine; Future Encounter for supervision of normal first in first trimester ([facility]) - Rapid drug screen, urine; Future [...] or undercooked meat, and stay away from [facility]. Patient has also been advised to not [...] by: Damaris Agosto MA documented in this encounterFreeman Health SystemXueviiwcet04-01-7393 Evaluation + Plan note* Assessment & Plan [...] Primary Care - PCP - Established; Future [facility] Work Phone: 1(789) 592-129102-25-2025 Evaluation + Plan note* Assessment & Plan Note - Koffi Uriarte MD - 09/12/2024 12:40 PM ESTAssociated Problem(s): Seizure (Multi) Good control. Follow up with neuro. Continue meds [facility] Work Phone: 1([phone]) 443-677502-25-2025 Evaluation + Plan note* Assessment & Plan Note - Koffi Uriarte MD - 09/12/2024 12:40 PM ESTAssociated Problem(s): Vitamin B12 deficiency [facility] Work Phone: [phone]) 166-723902-25-2025 Evaluation + Plan note* Assessment & Plan Note - Koffi Uriarte MD - 09/12/2024 12:40 PM ESTAssociated Problem(s): Fatigue We talked about healthy habits and sleep hygiene Orders: CBC; Future TSH with reflex to Free T4 if abnormal; Future Vitamin B12; Future [facility] Work Phone: 1(776) 382-462002-25-2025 History of Present illness Narrative* Koffi Uriarte MD - 09/12/2024 12:40 PM EST Subjective Princess Guerrero is a 28 y.o. female who presents for Follow-up (Follow from ob gyn physician assistant appt for elevated BP). Here for a [...] mg daily or vitamins. documented in this [facility] Work Phone: 1(358) 740-262202-25-2025 Instructions* Patient Instructions* Koffi Uriarte MD - 09/12/2024 12:40 PM EST Please start back on folic acid 1 mg daily or vitamins. documented in this [facility] Work Phone: 1(190) 797-251102-25-2025 Miscellaneous Notes* Assessment & Plan Note - [...] Future Vitamin B12; Future documented in this [facility] Work Phone: 1([phone]) 977-642310-16-2024 History of Present illness Narrative* Nedra Calderon MD - 05/03/2024 9:30 AM EDT Images from the original note were not included. Neurological [facility] Referring: No ref. provider found PCP: [...] further seizures. She is now working for [employer] as the health department wanted to transition her to the assisted system. Patient Active Problem List Diagnosis Anxiety [...] in upper and lower extremities. Coordination Right: Udvuuu-ir-pefm normal.Left: Zxewll-ah-kfjj normal. Physical Exam Eyes: Extraocular Movements: Extraocular [...] file for this visit. 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 Patient Active Problem List Diagnosis Abnormal weight [...] 5/5 throughout all four extremities. Coordination Right: Kehmym-ns-otlx normal.Left: Gqhjhe-px-dtkq normal. Physical Exam Eyes: Extraocular Movements: Extraocular [...] Follow-up in 1 year documented in this [facility] Work Phone: 1(472) 745-495905-10-2023 NoteEXAMINATION: US PELVIS TRANSVAG HISTORY: Reproductive care [...] Electronically authenticated by: HAYLIE HOUSER Date: 2022-11-25 17:20[facility] CenterJuqynolj24-33-0445 NoteHNO ID: [id number] Author: Brendan Blankenship PA-C Service: ? 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 I, Brendan Blankenship, have reviewed this information as documented for accuracy and performed all elements of history taking, and edited the record as necessary. ROS: SEE HPI PE: GENERAL: well-appearing, in no acute distress LUNGS: Normal inspiratory effort PHYSICIAN OPHTHALMOLOGIST: Normal external genitalia, no vaginal bleeding, small [...] testing/treatment [facility] Miscellaneous Notes* Telephone Encounter - Mary Onofre [...] and move appt sooner. documented in this encounterLouis [facility]09-01-2022 Miscellaneous Notes* Telephone Encounter - Mary Onofre RN - 03/19/2022 8:50 AM EDT LMP 02/11, +hpt. Assisted w initial OBV. Advised to take vitamin w folic acid. First trimester precautions provided. handbook sent in . documented in this encounterLouis Stokes Cleveland [facility] Center07-19-2022 Miscellaneous Notes* Telephone Encounter - Brendan Souza [...] this medication MICHELLE: No documented in this encounterLouis Stokes Cleveland Va Medical Center02-22-2022 NoteHNO ID: [id number] Author: Brendan Blankenship PA-C Service: ? 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 Portions of this record were documented by the Head Up Operator. I, Brendan Blankenship, have reviewed this information as documented for accuracy and performed all elements of history taking, and edited the record as necessary. ROS: SEE HPI PE: GENERAL: well-appearing, in no acute distress LUNGS: Normal inspiratory effort PHYSICIAN OPHTHALMOLOGIST: Small amount yellow mucus discharge, cervix NL. [...] testing/treatment Medical Decision Making Level: 3 [facility] Note HNO ID: [id number] Author: 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 APRN.DROP WIRE OPERATOR Service: ? 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 Avoid scratching, scented pads/tampons/toilet papers, cranberry juice, bubble baths, and intercourse until symptoms are relieved. NO douching. If you shave, use a new razor at least twice monthly. 5) Follow up one year or sooner as needed 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 APRN.[facility]01-22-2018 History of Past illness Narrative* ProblemNoted DateResolved DateNO SHOW documented as of this encounter (statuses as of 02/03/2022) [facility]01[facility] History of Past illness Narrative* ProblemNoted Date Resolved DateNO SHOWdocumented as of this encounter (statuses as of 03/19/2022) [facility]01-22-2018 History of Past illness Narrative* ProblemNoted Date Resolved DateNO SHOWdocumented as of this encounter (statuses as of 03/24/2022) [facility] No data available for this section [facility] Diagnosis Acute vaginitis- Primary Vaginitis and vulvovaginitis, unspecified [facility] [place] [facility] Diagnosis Bleeding in early - Primary Unspecified hemorrhage in early , unspecified as to episode of care [facility] Diagnosis Seizure (CMS/HCC)- Primary Other convulsions documented in this encounter [facility] Work Phone: Evaluation noteNo assessment information available [facility] Work Phone: Evaluation note* Diagnosis Seizure (Multi)- Primary Other convulsions documented in this encounter [facility] Work Phone: Evaluation note* Diagnosis Benign essential hypertension- Primary Essential hypertension, benign Seizure (Multi) Other convulsions Vitamin B12 deficiency Other B-complex deficiencies Fatigue, unspecified type Well adult health check Unspecified general medical examination Vitamin D deficiency documented in this encounter [facility] Work Phone: Evaluation note* Diagnosis Missed menses Missed menses , unspecified gestational age ([facility]-HCC) Encounter for supervision of normal first in first trimester ([facility]) Nausea and vomiting in ([facility]-HCC) Unspecified vomiting of , unspecified as to episode of care Seizure (HCC) Other convulsions Chronic hypertension documented in this encounter [facility]* Diagnosis Nausea and vomiting, unspecified vomiting type- Primary First trimester ([facility]HS-HCC) state, incidental 11 weeks gestation of ([facility]-HCC) documented [facility]* Diagnosis First trimester ([facility]HS-HCC) state, incidental 12 weeks gestation of ([facility]-HCC) Missed menses Subchorionic hematoma in second trimester, single or unspecified fetus ([facility]-HCC) [facility]* Diagnosis Well woman exam with routine gynecological exam Routine gynecological examination Second trimester ([facility]HS-HCC) state, incidental 16 weeks gestation of ([facility]-HCC) Vaginal discharge Leukorrhea, not specified as infective STD exposure Screening, , for anatomic survey ([facility]) Encounter for anatomic survey documented [facility]* Diagnosis 20 weeks gestation of ([facility]-HCC) Second trimester ([facility]-HCC) state, incidental [facility]* Diagnosis Second trimester ([facility]-HCC) state, incidental 24 weeks gestation of ([facility]) Hypertension, unspecified type Seizure (HCC) Other convulsions [...] up with her boyfriend. * Working in [employer]. * BP is much improved on lisinopril. * Saw gyne for discharge. * was told she had BV and chlamydia. * took antibiotics, got better for a few weeks and now she is having discharge again and odor. no pelvic pain. [employer] Work Phone: History of Present illness Narrative* The patient states she has been doing well with her blood pressure control since the last visit. She has no comorbid illnesses. She has no significant interval events. * Symptoms: The patient is currently asymptomatic. * Less anxiety lately. Broke up with her boyfriend. * Working in [employer]. * BP is much improved on lisinopril. * Saw gyne for discharge. * was told she had BV and chlamydia. * took antibiotics, got better for a few weeks and now she is having discharge again and odor. no pelvic pain. [employer] Work Phone: Hospital Discharge instructions No data available for this section [facility] No data available for this section [facility] Summary Purpose Family History Mother [...] W WO CONTRAST Spike Garcia MD [address] [place] [address] Assessments Diagnosis Nonintractable generalized idiopathic epilepsy without status epilepticus (HCC) Diagnosis Seizure (HCC) Other convulsions Discharge Instructions * Attachments The following attachments cannot be sent through Care Everywhere. * Seizure (Hungarian) documented in this encounter Chief Complaint and Reason for Visit Chief Complaint Nausea, diarrhea Additional Source Comments INFORMATION SOURCE (unrecogn ized section and content) DATE CREATED AUTHOR 01/11/2018 [facility] DATE CREATED AUTHOR AUTHOR'S ORGANIZ ATION 04/19/2020 [facility] DATE CREATED AUTHOR AUTHOR'S ORGANIZ ATION 05/11/2020 [facility] DATE CREATED AUTHOR AUTHOR'S ORGANIZ ATION 12/29/2020 [facility] DATE CREATED AUTHOR AUTHOR'S ORGANIZ ATION 04/20/2022 [facility] DATE CREATED AUTHOR AUTHOR'S ORGANIZ ATION 08/11/2022 [facility] DATE CREATED AUTHOR AUTHOR'S ORGANIZ ATION 11/29/2022 [facility] DATE CREATED AUTHOR AUTHOR'S ORGANIZ ATION 12/27/2022 [facility] DATE CREATED AUTHOR AUTHOR'S ORGANIZ ATION 09/07/2023 [facility] DATE CREATED AUTHOR AUTHOR'S ORGANIZ ATION 12/16/2023 [facility] DATE CREATED AUTHOR AUTHOR'S ORGANIZ ATION 04/01/2024 [facility] DATE CREATED AUTHOR AUTHOR'S ORGANIZ ATION 04/02/2024 [facility] DATE CREATED AUTHOR AUTHOR'S ORGANIZ ATION 07/14/2024 [facility] DATE CREATED AUTHOR AUTHOR'S ORGANIZ ATION 09/15/2024 [facility] DATE CREATED AUTHOR AUTHOR'S ORGANIZ ATION 04/22/2025 [facility] DATE CREATED AUTHOR AUTHOR'S ORGANIZ ATION 05/30/2025 [facility] EPIC Reason for Visit (unrecogniz ed section and content) StatusReasonSpecialtyDiagnoses / ProceduresReferred By ContactReferred To ContactClosedEEG Diagnoses Generalized idiopathic epilepsy and epileptic syndromes, not intractable, without status epilepticus Procedures HC EEG 16+ CHANNEL TELEMTERY 24HR Spike Garcia MD [address] [facility] [address] [place] [address] [address] [place] [address] StatusReasonSpecialtyDiagnoses / ProceduresReferred By ContactReferred To ContactClosedRadiology Diagnoses Generalized idiopathic epilepsy and epileptic syndromes, not intractable, without status epilepticus Procedures HC MRI-BRAIN WO & W CONTRAST Spike Garcia MD [address] [facility] [address] [place] [address] [facility] [address] [address] [place] [address] ReasonCommentsSeizuresSeizure like activityReasonCommentsAppointmentReason CommentsBleeding With PregnancyReasonCommentsSeizuresMedication udatesReason CommentsSeizuresReasonCommentsFollow-upFollow from ob gyn physician assistant appt for elevated BP ReasonCommentsAmenorrheaReasonCommentsRoutine VisitReasonComments Routine VisitWell Women VisitSTI Screening Source Comments (unrecognize d section and content) In the event this informatio n is protected by the Federal Confidentiality of Alcohol and Drug Abuse Patient Records regulations: The Federal rules restrict any use of the information to criminally investigate or prosecute any alcohol or drug abuse patient.[facility] CenterIn the event this information is protected by the Federal Confidentiality of Alcohol and Drug Abuse Patient Records regulations: The Federal rules restrict any use of the information to criminally investigate or prosecute any alcohol or drug abuse patient.[facility] CenterIn the event this information is protected by the Federal Confidentiality of Alcohol and Drug Abuse Patient Records regulations: The Federal rules restrict any use of the information to criminally investigate or prosecute any alcohol or drug abuse patient.[facility] Care Teams (unrecognized sec tion and content) Team MemberRelationshipSpecialtyStart DateEnd Date Koffi Uriarte MD PCP - GeneralFamily Practice08/17/16Team MemberRelationshipSpecialtyStart DateEnd Date Koffi Uriarte MD PCP - GeneralFamily Practice08/17/16Team MemberRelationshipSpecialtyStart [place] [address] [place] [address] PCP - General08/14/20 [place] [address] [place] [address] PCP - MMO ACO PCP02/16/23 Team Status: Active Member Role Status Dates Norma Houser APRN Primary Care Provider Active Team Status: Inactive Member Role Status Dates Yusra Whitehead APRN Attending Provider Active Start: November 09, 2023 End: November 09, 2023[facility] Care ProviderActiveStart: November 09, 2023 End: November 09, 2023Team MemberRelationshipSpecialtyStart [place] [address] [place] [address] PCP - General08/14/20Team MemberRelationshipSpecialtyStart [place] [address] [place] [address] PCP - General08/14/20Team MemberRelationshipSpecialtyStart [place] [address] [place] [address] PCP - GeneralFamily Medicine01/14/23Team MemberRelationshipSpecialtyStart [place] [address] [place] [address] [facility]/23Team MemberRelationshipSpecialtyStart [place] [address] [place] [address] PCP - GeneralFamily Medicine01/14/23Team MemberRelationshipSpecialtyStart [place] [address] [address] PCP - GeneralFamily Medicine01/14/23Team MemberRelationshipSpecialtyStart [place] [address] [address] PCP - GeneralFamily Medicine01/14/23Team MemberRelationshipSpecialtyStart [place] [address] [address] PCP - GeneralFamily Medicine01/14/23Team MemberRelationshipSpecialtyStart [place] [address] [place] [address] PCP - GeneralFamily Medicine01/14/23Team MemberRelationshipSpecialtyStart [place] [address] [place] [address] PCP - GeneralFamily Medicine01/14/23Team MemberRelationshipSpecialtyStart [place] [address] [place] [address] PCP - GeneralFamily Medicine01/14/23Team MemberRelationshipSpecialtyStart [place] [address] [place] [address] PCP - GeneralFamily Medicine01/14/23Te MemberRelationshipSpecialtyStart [place] [address] [place] [address] PCP - [facility]01/14/23Te MemberRelationshipSpecialtyStart [place] [address] [place] [address] PCP - [facility]01/14/23Te MemberRelationshipSpecialtyStart [place] [address] [place] [address] PCP - [facility]01/14/23 Goals (unrecognized section and content) Goals may [...] BE BASED ON THE PRIMARY CLINICAL RECORDS. [facility] [employer] [facility]. provides no warranty or guarantee of the accuracy or completeness of information in this document.
[2025-06-12 16:50] VITALS: BP 100/60; PULSE 70
[2025-06-12 16:51] VITALS: BP 107/57; PULSE 70
[2025-06-12 17:28] LABS: Glucose Urine UA NEGATIVE (NEGATIVE)
[2025-06-12 17:39] LABS: Cast Seen? NONE SEEN #/LPF (NONE SEEN); Crystals Seen? None Seen #/HPF (None Seen); Urine Culture Indicated NO
[2025-06-12 17:50] VITALS: BP 111/60; PULSE 67
== END 2025-06-12 18:00 | disposition home or self-care (01) ==
PROVIDERS: Admitting Provider Obstetrics & Gynecology; PCP Family Medicine; Visit Provider Obstetrics & Gynecology
DX: O99.891 Other specified diseases and conditions complicating pregnancy (principal); R10.9 Unspecified abdominal pain; Z3A.30 30 weeks gestation of pregnancy
CPT/HCPCS: 59025; 81001; G0378; G0379

== ENCOUNTER 2025-06-15 14:48 | Outpatient (OUT) | payer BC, SELFPAY ==
--- OUTSIDE RECORDS SUMMARY | 2024-03-16 07:18 | XMS_ITS | Continuity of Care Document ---
Author Organization [facility] Address [address] [place] [address] Phone Care Team Providers Care Revenue Investigator Name Role Phone Jason MSN, LOAD OUT WORKER-C, PM, Emily Unavailable Unavailable Allergies, Adverse Reactions, Alerts Substance Reaction Status Criticality No Known Allergies Active No Inform ation Medications Medication Instructions Dosage Effective Dates (start - stop) Status Comments labetalol 300 mg tablet take 1 tablet by oral route 2 times every day 300 MG - Active lamotrigine 100 mg tablet take 1 tablet by oral route 2 times every day 100 MG - Active Procedures Procedure Date ROUTINE VENIPUNCTURE OFFICE/OUTPATIENT VISIT, EST LDL-C>= 130 MG/DL DIAST BP 80-89 MM HG SYST BP >=130-139MM HG MED LIST DOCD IN [facility] RVW MEDS BY RX/DR IN [facility] PT TOBACCO USE DONE VD TLK Pt inelig neg scrn depres ROUTINE VENIPUNCTURE TB Read TB INTRADERMAL TEST IMMUNIZATION ADMIN HEP B VACCINE, ADULT, IM IMMUNIZATION ADMIN TDAP VACCINE >7 IM Covid-19 Vaccine Administration 023 Covid-19 Vaccine, 50 Mcg Moderna 12y Plu s PREV VISIT, EST, AGE 18-39 DIAST BP 80-89 MM HG SYST BP < 130 MM HG MED LIST DOCD IN [facility] RVW MEDS BY RX/DR IN [facility] TOBACCO NON-USER Pt inelig neg scrn depres IMMUNIZATION ADMIN FLU VAC NO PRSV 4 KRANTHI 3 YRS+ OFFICE/OUTPATIENT VISIT, EST DIAST BP 80-89 MM HG SYST BP < 130 MM HG Pt inelig neg scrn depres COVID-19 Antigen Test ROUTINE VENIPUNCTURE TB Read TB INTRADERMAL TEST COVID-19 Antigen Test IMMUNIZATION ADMIN FLU VAC NO PRSV 4 KRANTHI 3 YRS+ OFFICE/OUTPATIENT VISIT, EST OFFICE/OUTPATIENT VISIT, EST PREV VISIT, EST, AGE 18-39 Covid Testing [facility] IMMUNIZATION ADMIN FLU VAC NO PRSV 4 KRANTHI 3 YRS+ PREV VISIT, NEW, AGE 18-39 ROUTINE VENIPUNCTURE Pfizer COVID Vaccine Admin Dose 2 COVID-19 Pfizer Pfizer COVID Vaccine Admin Dose 1 COVID-19 Pfizer Covid Testing [facility] Covid Testing [facility] TB INTRADERMAL TEST Advance Directives Directive Yes / No Effective Date File Name No Information Encounters Encounter Description Practice Location Reason(s) For Visit Diagnoses Date Provider Providers Copied on Encounter [facility], [address] [place] [address], [place], [place], [id number] , [place] tel:[phone] [facility] No Information 4 Gomez Emily. [address] [place], [address], [place]. tel: [phone] OFFICE/OUTPA TIENT VISIT, EST [facility], [address], [place], [id number] , [place] tel: [phone] [facility] est care (chief complaint)La b draw (chief complaint) Need for hepatitis C screening testScreening for diabetes mellitusScreening for endocrine disorderScreening for lipid disordersScreening for HIV (human immunodeficiency virus)Body mass index [BMI] 28.0-28.9, adultEssential hypertensionHistory of seizure 4 Jason Diaz. [address] [place], [address], [place]. tel: [phone] [facility], [address] [place] [address], [id number] , [place] tel: [phone] [facility] Hep B Titer (chief complaint) Encounter for antibody response examination 4 Monet Chen. [address], [place], [id number] , [place]. tel: [phone] [facility], [address] [place] [address], [id number] , [place] tel: [phone] [facility] No Information 4 Monet Chen. [address], [place], [id number] , [place]. tel: [phone] [facility], [address] [place] [address], [id number] , [place] tel: [phone] [facility] Encounter for screening for respiratory tuberculosis 4 Monet Chen. [address] [place] [address], [id number] , [place]. tel: [phone] [facility], [address] [place] [address], [id number] , [place] tel: [phone] [facility] No Information 3 Monet Chen. [address], [place], [id number] , [place]. tel: [phone] [facility], [address] [place] [address], [id number] , [place] tel: [phone] [facility] No Information 3 Monet Chen. [address], [place], [id number] , [place]. tel: [phone] PREV VISIT, EST, AGE 18-39 [facility], [address] [place] [address], [id number] , [place] tel: [phone] [facility] Pillars Appointment (chief complaint) Body mass index [BMI] 31.0-31.9, adultEncntr for general adult medical exam w/o abnormal findings 3 Bernardo Montenegro. [address] [place] [address], [id number] , [place]. tel: [phone] [facility], [address] [place] [address], [id number] , [place] tel: [phone] [facility] No Information 3 Monet Chen. [address] [place] [address], [id number] , [place]. tel: [phone] OFFICE/OUTPA TIENT VISIT, [facility], [address] [place] [address], [id number] , [place] tel: [phone] [facility] Problem Visit (chief complaint) Morning sicknessBody mass index [BMI]30.0-30.9, adult Apr- 3 Bernardo Montenegro. [address] [place] [address], [id number] , [place]. tel: [phone] [facility], [address] [place] [address], [id number] , [place] tel: [phone] [facility] Encounter For Screening For Covid-19 3 Monet hCen. [address] [place] [address], [id number] , [place]. tel: [phone] [facility], [address], [place], [id number] , [place] tel: [phone] [facility] Lab draw (chief complaint) Encounter for antibody response examination Mar- 3 Monet Chen. [address], [place], [id number] , [place]. tel: [phone] [facility], [address], [place], [id number] , [place] tel: [phone] [facility] No Information 3 Monet Chen. [address], [place], [id number] , [place]. tel: [phone] [facility], [address] [place] [address], [id number] , [place] tel: [phone] [facility] Encounter for screening for respiratory tuberculosis 3 Monet Chen. [address], [place], [id number] , [place]. tel: [phone] [facility], [address] [place] [address], [id number] , [place] tel: [phone] [facility] Encounter For Screening For Covid-19 2 Monet Chen. [address] [place] [address], [id number] , [place]. tel: [phone] [facility], [address] [place] [address], [id number] , [place] tel: [phone] [facility] -annual giving director exam w/o abn findingsEncounter for gynecological examination (general) (routine) without abnormal findings Apr- 2 Jose Antonio DELEON-Darlene Ross. [address] [place], [address], [place]. tel: [phone] [facility], [address] [place] [address], [id number] , [place] tel: [phone] [facility] No Information 2 Monet Chen. [address], [place], [id number] , [place]. tel: [phone] OFFICE/OUTPA TIENT VISIT, EST [facility], [address], [place], [id number] , [place] tel: [phone] [facility] Bug Bite (chief complaint) Insect bite without infectionSkin rash 2 Jose Antonio DELEON-Darlene Ross. [address] [place], [address], [place]. tel: [phone] OFFICE/OUTPA TIENT VISIT, EST [facility], [address] [place] [address], [id number] , [place] tel: [phone] [facility] otalgia (chief complaint) Body mass index [BMI] 32.0-32.9, adultOtalgia of left earLeft acute otitis media 2 Jose Antonio DELEON-Darlene Ross. [address] [place], [address], [place]. tel: [phone] PREV VISIT, EST, AGE 18-39 [facility], [address] [place] [address], [id number] , [place] tel: [phone] [facility] (chief complaint) Encntr for general adult medical exam w/o abnormal findingsEssential hypertensionCough, persistent 2 Mik Green. [address] [place] [address], [id number], [place]. tel: [phone] [facility], [address] [place] [address], [id number] , [place] tel:[phone] [facility] Encounter For Screening For Covid-19 2 Monet Chen. [address] [place] [address], [id number] , [place]. tel: [phone] [facility], [address] [place] [address], [id number] , [place] tel:[phone] [facility] No Information 1 Monet Chen. [address], [place], [id number] , [place]. tel: [phone] [facility], [address], [place], [id number] , [place] tel: [phone] [facility] No Information 1 Monet Chen. [address], [place], [id number] , [place]. tel: [phone] PREV VISIT, NEW, AGE 18-39 [facility], [address], [place], [id number] , [place] tel: [phone] [facility] Pillars (chief complaint)Crystal b draw (chief complaint) Encntr for general adult medical exam w/o abnormal findingsHistory of seizure Mar-3 1 Mik Green. [address] [place] [address], [address], [place]. tel: [phone] [facility], [address] [place] [address], [id number] , [place] tel: [phone] [facility] No Information 1 Monet Chen. [address] [place] [address], [id number] , [place]. tel: [phone] [facility], [address] [place] [address], [id number] , [place] tel: [phone] [facility] No Information 1 Monet Chen. [address], [place], [id number] , [place]. tel: [phone] [facility], [address] [place] [address], [id number] , [place] tel: [phone] [facility] Encounter for screening for other viral disease 1 Monet Chen. [address] [place] [address], [id number] , [place]. tel: [phone] [facility], [address] [place] [address], [id number] , [place] tel: [phone] [facility] No Information 1 Monet Chen. [address], [place], [id number] , [place]. tel: [phone] Referring Provider: [facility], [address], [place], [id number] , [place] tel: [phone] [facility] Encounter for screening for respiratory tuberculosis 0 Monet Chen. [address], [place], [id number] , [place]. tel: [phone] Family History Family Member Type Diagnosis Age At Onset Maternal grandfather Problem malignant neoplasm o f lung (Cause Of ) Father Problem hypertension Cousin Problem Diabetes mellitus Maternal grandmother Problem Heart Arrhythmia Mother Problem migraine Mother Problem hypothyroidism Maternal grandmother Problem dementia Father Problem raised blood lipids Mother Problem Anxiety Mother Problem Alive and well Immunizations Vaccine Date Status Comments Hep B, adult, 3 dose administered Source: New Immunization Record Tdap (Boostrix) administered Source: New Immunization Record Spikevax 12y+ administered Source: New Im munization Record Flulaval/ Fluarix administered Source: Ne w Immunization Record Flulaval/ Fluarix administered Source: Ne w Immunization Record Flulaval/ Fluarix administered Source: Ne w Immunization Record Pfizer COVID administered Source: New Imm unization Record Pfizer COVID administered Source: New Imm unization Record Influenza, injectable, MDCK, preservative free, quadrivalent administered Source: Other Registry influenza, injectable, quadrivalent administered Source: Other Regist ry Tdap administered Source: Other R egistry influenza, injectable, quadrivalent, preservative free administered Source: Other Registry pneumococcal polysaccharide PPV23 administered Source: Other Regist ry Tdap administered Source: Other R egistry meningococcal MCV4P administered Source: Other Registry MMR administered Source: Other R egistry Hib (HbOC) administered Source: Other R egistry DTaP, unspecified formulation administere d Source: Other Registry OPV administered Source: Other R egistry DTaP, unspecified formulation administere d Source: Other Registry IPV administered Source: Other R egistry Hib (PRP-OMP) administered Source: Other Registry MMR administered Source: Other R egistry Hep B, adolescent or pediatric administer ed Source: Other Registry Hib (PRP-OMP) administered Source: Other Registry DTP administered Source: Other R egistry OPV administered Source: Other R egistry Hib (PRP-OMP) administered Source: Other Registry DTP administered Source: Other R egistry OPV administered Source: Other R egistry Hep B, adolescent or pediatric administer ed Source: Other Registry OPV administered Source: Other R egistry Hib (PRP-OMP) administered Source: Other Registry Hep B, adolescent or pediatric administer ed Source: Other Registry DTP administered Source: Other R egistry Payers Payer name Insurance type Covered democrat ID Authoriza tiluis(s) [employer] Benefits CI [id number] [employer] CI [id number] [employer] CI [id number] [employer] CI [id number] [employer] CI [id number] [employer] CI [id number] [employer] CI [id number] Social History Type Description Quantity Date Captured Comments Alcohol Use Details Unknown Caffeine Use Details Unknown Tobacco Use Status Smoking Status No Information Sex Female Sexual Orientation Straight or heterosexual Gender Identity Female Chief Complaint And Reason For Visit No Information Reason For Referral Reason For Referral No Information Plan Of Treatment Date Type Action Status Goal Hep A. Due on du e Goal Urinalysis. Due on due Goal ECG. Due on due Goal PRAPARE ASSESSMENT. Due on A due Goal RLP. Due on due Goal Unhealthy drug use screening . Due on due Goal HPV. Due on due Goal Tdap Vaccine. Due on 2032 due Goal Lipid panel. Due on due Goal Hepatitis C screening. Due o n due Goal Influenza vaccine. Due on due Goal Depression screening. Due on due Goal Tdap due Goal Hepatitis C screening. Due o n due Goal Depression screening. Due on due Goal Influenza vaccine. Due on due Goal Unhealthy drug use screening . Due on due Goal RLP. Due on due Goal HPV. Due on due Goal PRAPARE ASSESSMENT. Due on A due Goal Tdap Vaccine. Due on 2032 due Goal ECG. Due on due Goal Urinalysis. Due on due Goal Tdap due Goal Lipid panel. Due on due Goal Tobacco cessation counseling completed Goal Lifestyle education regardin g diet completed Goal Tobacco cessation counseling completed Goal Hep A. Due on du e Goal HPV. Due on due Goal ECG. Due on due Goal Urinalysis. Due on due Goal Lipid panel. Due on due Goal Tdap Vaccine. Due on 2032 due Goal Tdap due Goal Unhealthy drug use screening . Due on due Goal Hepatitis C screening. Due o n due Goal Influenza vaccine. Due on due Goal PRAPARE ASSESSMENT. Due on M due Goal Depression screening. Due on due Goal RLP. Due on due Goal Tdap due Goal Unhealthy drug use screening . Due on due Goal Influenza vaccine. Due on due Goal RLP. Due on due Goal Depression screening. Due on due Goal HPV. Due on due Goal Tdap Vaccine. Due on 2032 due Goal Lipid panel. Due on due Goal Hepatitis C screening. Due o n due Goal PRAPARE ASSESSMENT. Due on A due Goal Urinalysis. Due on due Goal ECG. Due on due Goal Tdap due Goal RLP. Due on due Goal HPV. Due on due Goal Unhealthy drug use screening . Due on due Goal PRAPARE ASSESSMENT. Due on A pr due Goal Influenza vaccine. Due on Ap due Goal Lipid panel. Due on due Goal Hep A. Due on du e Goal Tdap Vaccine. Due on 2032 due Goal Depression screening. Due on due Goal ECG. Due on due Goal Hepatitis C screening. Due o n due Goal Urinalysis. Due on due Goal Depression screening. Due on due Goal PAP. Due on due Goal Tdap Vaccine. Due on 2022 due Goal ECG. Due on due Goal Urinalysis. Due on due Goal RLP. Due on due Goal PRAPARE ASSESSMENT. Due on N due Goal Hepatitis C screening. Due o n due Goal Lipid panel. Due on due Goal Influenza vaccine. Due on No due Goal Hep A. Due on du e Goal Tdap. Due on due Goal Unhealthy drug use screening . Due on due Goal Tdap. Due on due Goal Influenza vaccine. Due on No due Goal Unhealthy drug use screening . Due on due Goal ECG. Due on due Goal Urinalysis. Due on due Goal PAP. Due on due Goal RLP. Due on due Goal Depression screening. Due on due Goal PRAPARE ASSESSMENT. Due on N due Goal Lipid panel. Due on due Goal Tdap Vaccine. Due on 2022 due Goal Hepatitis C screening. Due o n due Goal Hep A. Due on du e Goal Lipid panel. Due on due Goal ECG. Due on due Goal PRAPARE ASSESSMENT. Due on O due Goal Unhealthy drug use screening . Due on due Goal Tdap Vaccine. Due on 2022 due Goal Hep A. Due on du e Goal PAP. Due on due Goal Hepatitis C screening. Due o n due Goal Influenza vaccine. Due on Oc due Goal RLP. Due on due Goal Depression screening. Due on due Goal Tdap. Due on due Goal Urinalysis. Due on due Goal Lifestyle education regardin g diet completed Goal RLP. Due on due Goal Hepatitis C screening. Due o n due Goal Tdap Vaccine. Due on 2022 due Goal PAP. Due on due Goal Unhealthy drug use screening . Due on due Goal Hep A. Due on du e Goal Lipid panel. Due on due Goal Depression screening. Due on due Goal Influenza vaccine. Due on Oc due Goal Tdap. Due on due Goal ECG. Due on due Goal Urinalysis. Due on due Goal PRAPARE ASSESSMENT. Due on O due Goal Unhealthy drug use screening . Due on due Goal Hepatitis C screening. Due o n due Goal ECG. Due on due Goal Urinalysis. Due on due Goal Hep A. Due on du e Goal PRAPARE ASSESSMENT. Due on O due Goal RLP. Due on due Goal Tdap Vaccine. Due on 2022 due Goal Tdap. Due on due Goal Influenza vaccine. Due on Oc due Goal Lipid panel. Due on due Goal PAP. Due on due Goal Depression screening. Due on due Goal Unhealthy drug use screening . Due on due Goal Lipid panel. Due on 034 due Goal PAP. Due on due Goal Hepatitis C screening. Due o n due Goal Tdap Vaccine. Due on 2022 due Goal Depression screening. Due on due Goal Hep A. Due on du e Goal PRAPARE ASSESSMENT. Due on O due Goal Tdap. Due on due Goal RLP. Due on due Goal Influenza vaccine. Due on Oc due Goal ECG. Due on due Goal Urinalysis. Due on due Goal Lifestyle education regardin g diet completed Goal Tdap Vaccine. Due on 2022 due Goal Depression screening. Due on due Goal ECG. Due on due Goal Urinalysis. Due on due Goal RLP. Due on due Goal Tdap. Due on due Goal Lipid panel. Due on 027 due Goal PAP. Due on due Goal Influenza vaccine. Due on due Goal PRAPARE ASSESSMENT. Due on S due Goal Tdap Vaccine. Due on 2022 due Goal RLP. Due on due Goal Tdap. Due on due Goal PRAPARE ASSESSMENT. Due on M due Goal Depression screening. Due on due Goal ECG. Due on due Goal Urinalysis. Due on due Goal Lipid panel. Due on due Goal Hep A. Due on du e Goal Influenza vaccine. Due on due Goal PAP. Due on due Goal PRAPARE ASSESSMENT. Due on M due Goal RLP. Due on due Goal Influenza vaccine. Due on due Goal PAP. Due on due Goal Depression screening. Due on due Goal Tdap. Due on due Goal Lipid panel. Due on due Goal Hep A. Due on du e Goal Hep A. Due on du e Goal Tdap Vaccine. Due on 2022 due Goal ECG. Due on due Goal Urinalysis. Due on due Goal PAP. Due on due Goal PRAPARE ASSESSMENT. Due on N due Goal Tdap. Due on due Goal Depression screening. Due on due Goal Influenza vaccine. Due on due Goal RLP. Due on due Goal ECG. Due on due Goal Urinalysis. Due on due Goal Lipid panel. Due on due Goal Urinalysis. Due on due Goal RLP. Due on due Goal PAP. Due on due Goal Influenza vaccine. Due on Oc due Goal Depression screening. Due on due Goal Lipid panel. Due on due Goal Tdap. Due on due Goal PRAPARE ASSESSMENT. Due on O due Goal ECG. Due on due Goal Lipid panel. Due on due Goal Influenza vaccine. Due on due Goal Depression screening. Due on due Goal RLP. Due on due Goal PAP. Due on due Goal Tdap. Due on due Goal PRAPARE ASSESSMENT. Due on O due Goal ECG. Due on due Goal Urinalysis. Due on due Goal Depression screening. Due on due Goal ECG. Due on due Goal PAP. Due on due Goal RLP. Due on due Goal Tdap. Due on due Goal Influenza vaccine. Due on due Goal Urinalysis. Due on due Goal Lipid panel. Due on due Goal Tdap. Due on due Goal Lipid panel. Due on due Goal RLP. Due on due Goal Depression screening. Due on due Goal ECG. Due on due Goal Urinalysis. Due on due Goal Influenza vaccine. Due on due Goal PAP. Due on due Goal Dietary management education , guidance, and counseling completed Goal Urinalysis. Due on due Goal ECG. Due on due Goal Depression screening. Due on due Goal PAP. Due on due Goal Influenza vaccine. Due on due Goal RLP. Due on due Goal Lipid panel. Due on 026 due Goal Tdap. Due on due Goal Dietary management education , guidance, and counseling completed History Of Present Illness Encounter Date Complaint History Of Prese nt Illness Lab draw Labs drawn x1 RA C. 2x2 and bandage applied. AJNNET Concepcion est care Pt is here for b lood pressure f/u. Pt previously saw Dr. Uriarte for primary care. Pt states her blood pressure has been running in the 140/90s and has been having headaches. Pt denies chest pain, blurred vision, dizziness. Pt is currently on labetalol instead of lisinopril. Pt drinks alcohol socially and vapes with nicotine. Denies drug use. Erin Concepcion noted.Patient is a 28-year-old female with a history of HTN and seizure disorder. She reports having 2 seizures in her lifetime; last known seizure was a few years ago. She follows with neurologist through . She has a 7 month old daughter and was switched from Lisinopril to Labetolol by Customs Brokerage Agent (Dr. Sheppard) when she was about 6 months . She states she has been getting frequent headaches, last one was about 2 days ago. She states she will wake up with headaches and some will happen during the day. She is not sure when her last vision exam was. She reports some increased stress with trying to find a job. She reports that she will check BP at home on occasion. She reports home BPs running 140s/90s.LMP was 8/16. She is not . / FRANKY Bradley Hep B Titer Pt here for Hep B titer.Virgilio Pillars Appointment Here for eusebia starks. Will have labs drawn tomorrow.Women's Health: ObviouslyFlu: Already has it//Josiah RNOB/GIS SCIENTIST for - Dr. Bonilla in [facility] concerns today. Pillars labs scheduled for tomorrow, patient not fasting today. Flu injection up to date. Seizure disorder well controlled. Off BP medication for 1 day due to running out BP well controlled. Morning nausea controlled at this time. COVID-19 1 week ago symptoms resolved. Nolvia Fletcher Problem Visit This morning tim parham sitting in parking lot about to come into work patient had issues of nausea, no diarrhea. Needs work note to return to work.//Josiah RN20 week female, awoke with nausea this am. Continued to worsen on arrival to work place despite use of zofran prescribed by per PCP. Notes covid-19 test performed by employer prior to going home and was found to be negative. As day progressed nausea subsided with no vomiting. No other symptoms or concerns. movement felt throughout the day without issues. Patient has had morning sickness symptoms prior without need for zofran use. Nolvia FLETCHER Lab draw Pt presents for lab draw. Labs drawn LAC. 2x2 and bandage applied. //JANNET Concepcion Bug Bite Pt here today fo r bug bite to upper Left leg. Pt sates she was bitten yesterday but it is more red and swollen since yesterday. Pt sates it itches. No other issues or concernsTGrodi LAB INSTRUCTOR I have reviewed all above information and agree. Was driving with top down on vehicle was and either bit by a bug or stung by a bee to left upper inner thigh. Was wearing shorts at the time. NKA that pt is aware of. Happened yesterday. No fever/chills. Area getting larger, warmer and redder. Was sent to office by cutting department supervisor to assess if ATB are needed. No drainage or induration. No urticaria. No breathing difficulty. No OTC medications or tx used. Kamilla FLETCHER otalgia Pt c/o otlagia l eft ear since last night. Denies fever/chills. Reports sharp pain in left ear. Feels full and cannot hear well out of that side. Denies ear draiange. No recent illness. Had AOM of right ear about 2-3 weeks ago and was tx with amoxicillin ATB. Report that infection resolved. No OTC medications used. Denies other concerns or needs today. Kamilla FLETCHER pillars Here for [facility] s exam to complete employee pillars and to establish care. Last seen PCP from [place] in September 2021. History of new onset seizure approx 2 years ago. Had 2 episodes during nighttime with full body shaking and decreased responsiveness. Saw neurology who initiated the lamictal. Has been taking it ever since; no further seizure activity. Last saw neurology this month. No change to medications; moving to yearly instead of every 6 months.Completed antibiotic approx 5 days ago for ROM. Continues with harsh moist cough; increases at nighttime when laying down; making difficulty with sleep. States she sat upright to help which did improve the drainage. Self tested for COVID 2x with negative results. Vision-no concernsDental-[facility], Aug 2021ANGEL Covington Sep-30-2021 Lab draw Labs drawn from left AC x 1 attempt, tolerated well, pressure dressing applied to area. Fredi Bettencourt RN Pillars Patient presents for an A pillars physical exam, pt has established dental and optometry. No other complaints. Juana noted. Has established family provider, Suzanne Uriarte. Next appt is in May. Thinking of transferring care here to [facility]. Recent history of sudden onset seizure approx 1 year ago while sleeping. Testing completed (MRI, EEG) with Nedra Mccray with [facility]. Taking medications as prescribed. No recent seizure activity. Denies any concerns at this time. Vision-Recently prescribed new glassesDental- few yearsWVouchedFor- appt yesterdayJMik, EVENT SPECIALIST Functional Status Date Functional Assessmen t No Information Instructions Date Instruction Additional Infor marlin Hypertension, or hig h blood pressure, is a common condition that can lead to serious complications if untreated. These complications can include stroke, heart failure, heart attack, and kidney damage. 1) Make dietary changes (reduce sodium intake)2) Lose weight if you are overweight3) Reduce stress and alcohol consumption4) Exercise regularlySince the effects of lifestyle changes are usually relatively modest, many people with hypertension will also require medications to achieve goal blood pressure. If you are put on a blood pressure medication, you may be instructed to check your blood pressure daily at home. If your provider suggest this, please check this twice a day (in the morning and evening). Write down these readings and call the office in 2 weeks with readings so recommendations regarding your treatment can be made. Related to Essential hypertension Giving encouragement to exercise Related to Body mass index [BMI] 28.0-28.9, adult Lifestyle education regarding di et Related to Body mass index [BMI] 28.0-28.9, adult 1. Low fat, low adde d sugar, and well balanced diet2. Good sleep hygiene with adequate sleep time3. 30-45 minutes of moderate intensity exercise 3-5 days per week4. Continue regular preventative visits with dental provider5. Ensure all preventative screening is completed and up to date6. Follow up annually or as needed7. Ensure you up date your influenza and COVID-19 vaccinations as recommended. Related to Encntr for general adult medical exam w/o abnormal findings Lifestyle education regarding di et Related to Body mass index [BMI] 31.0-31.9, adult Giving encouragement to exercise Related to Body mass index [BMI] 31.0-31.9, adult 1. May return to work tomorrow. Related to Morning sickness Lifestyle education regarding di et Related to Body mass index [BMI] 30.0-30.9, adult Giving encouragement to exercise Related to Body mass index [BMI] 30.0-30.9, adult Dietary management e ducation, guidance, and counseling Related to Body mass index [BMI] 32.0-32.9, adult Giving encouragement to exercise Related to Body mass index [BMI] 32.0-32.9, adult 1. Use cough med as needed; shelli at nighttime2. Increase oral fluids/water to thin secretions3. Call if worsening symptoms or any concerns Related to Cough, persistent 1. Complete labs whe n fasting; will call with results2. F/U yearly for annual exam Related to Encntr for general adult medical exam w/o abnormal findings 1. Reduce sodium and eat a Heart Healthy diet (less than 300mg cholesterol/day) or DASH diet2. Exercise moderate intensity at least 30 min/day for 5 days/week3. Check Blood pressure at home and keep a log if headaches4. Continue Medication5. No smoking/Avoid smoke exposure6. Limit alcohol intake7. Follow-up in 3 months Related to Essential hypertension 1. Labs obtained, wi ll call with results2. Follow-up in 1 year for annual exam, sooner for any concerns Related to Encntr for general adult medical exam w/o abnormal findings Giving encouragement to exercise Related to Body mass index [BMI] 31.0-31.9, adult Dietary management e ducation, guidance, and counseling Related to Body mass index [BMI] 31.0-31.9, adult Assessments Type Assessment Date No Information Goals Health Concern Goal Type Priority Status Date Hypertension Management: Patient needs education to manage hypertension. Patient will state factors necessary to manage hypertension. Patient Goal New Patient Care Teams Name Effective Dates (start - stop) Status Members No Information
--- OUTSIDE RECORDS SUMMARY | 2025-06-12 22:08 | XMS_ITS | Continuity of Care Document ---
Author Organization [facility] Address [address] [place] [address] Phone Care Team Providers Care Crew Mess Attendant Name Role Phone Jose Carlos Lui Jr, MD Emergency Provider Suzanne Uriarte MD Primary Care Provider Bryn Healy DO Attending Provider Care Teams Patient Care Team Team Status: Active Member Role/Relationship Status Dates Suzanne Uriarte MD DMD Primary Care Provider Acti ve Visit Care Team Team Status: Inactive Member Role/Relationship Status Dates Jose Carlos Lui Jr, MD Emergency Provider Active Start: June 12, 2025 End: June 13, 2025Suzanne Uriarte MD DMDPrimary Care ProviderActive Start: June 12, 2025 End: June 13, 2025 Visit Care Team Team Status: Inactive Member Role/Relationship Status Dates Suzanne Uriarte MD DMD Primary Care Provider Acti ve Start: June 13, 2025 End: June 13, 2025Richanita Healy DOAttending ProviderActiveStart: June 13, 2025 End: June 13, 2025 Chief Complaint and Reason for Visit Chief Complaint Admit Date seizure June 12, 2025 10:41pm 30 wks iup- Seizure June 13, 2025 12:17am Allergies, Adverse Reactions, Alerts Allergen Type Severity Reaction Last Updated Verified Status No Known Allergies Allergy Unknown June 12, 2025 10:49pmYesActive Social History Smoking Status Status Start Date End Date Date of Observa tion Smokes tobacco daily (finding) June 12, 2025 11:22pm Observation Status Observation Response Date of Response Legal Sex Female (finding) [facility] StatusYNove2024 Family History Relationship Condition Age at Onset Recorded Date/T masha father Hypertension Unknown maternal grandfatherMalignant neoplasmUnknown Problems Active Problems Problem Diagnosis/Recorded Date Onset Date Stat us Breakthrough seizure June 13, 2025 12:54am Unkno wn Active Sinusitis, acute maxillary September 22, 2024 11:39am Unk nown Active Viral gastroenteritis November 09, 2023 3:14pm Unknown Active Currently June 13, 2025 12:54am Unknown Active Medications Medication Status Dose Units Route Directions Qty Days Refills S tart Date Stop Date End Date Reason(s) Instructions Adherence Ferrous Sulfate (Iron) 325 mg (65 mg iron) tablet Active 325 MG PO Q2D June 12, 2025 12:00amUnknownDocosahexaenoic Acid ( Dha) 200 mg capsuleActiveMGPONhavas[facility] 2024 12:00amUnknownLamotrigine 150 mg tablet Aaovaz958WQVOJliaq qvahu6030Ldrspfbs 25th, 2025 12:00amUnknownLamotrigine 100 mg rfjdtuNuuhwaatkfym117FHKARlbabIawpp 2023 11:[facility]pm[facility] 20[facility] 11:39pmLabetalol 200 mg xkkjxkBncjhenuldpm774FUWMTknls dailyApril 2023 11:00pm[facility] 2024 11:17amOndansetron Hcl 4 mg kmxjfuSruhwnzfomcz8WZTBUctpo 8 hours as needed for nausea and kjqpkbnn347Gerky 2023 11:00pm[facility] 2024 11:17amLabetalol 200 mg jafyzhNohxqz201PCEFKxusk dailyParkwood Hospital 2024 11:17amUnknownAmoxicillin-Pot Clavulanate 875-125 mg jrhugwTuenzi3GVVPJEajdi shegr585Hznuy 2024 12:00amUnknown Relevant Diagnostic Tests and/or Laboratory Data Laboratory Results Test Collection Date/Time Result Date/Time Result Interpretation Reference Range Result Comment Performing Site Corrected White Blood Count June 12, 2025 11:05pm June 12, 2025 11:31pm 9.3 10*3/uL 3.8-11.6F[facility] [id number] [address] [facility] [address]Ivwzdefdqfu WBC CountNovember 2024 11:05pmNov2024 11:31pm9.3 10*3/uL3.8-11.6F[facility] [id number] [address] [facility] [address]Jlm Blood CountNov2024 11:05pmNov2024 11:31pm3.20 10*6/uLBelow low normal3.60-5.00[facility] [id number] [address] [facility] 8[address]QfmkmyeodlDexwfmjf 2024 11:05pmNov2024 11:31pm9.7 g/dLBelow low nqslyq72.8-15.4FPe[facility] [id number] [address] [facility] 59873QpimwdwpalOlszonmq 25th, 2025 11:05pmJune 12, 2025 11:31pm28.2 %Below low .0-46.4FPe[facility] [id number] [address] [facility] [address]005Hcou Corpuscular VolumeNov2024 11:05pmJune 12, 2025 11:31pm88.3 hY08-264AcagiwnlrCorey Hospital [facility] [id number] [address] [facility] [address]Obiy Corpuscular HemoglobinNovember 2024 11:05pmJune 12, 2025 11:31pm30.4 pg24.7-34.3FPe[facility] [id number] [address] [facility] 34734Nosv Corpuscular Hemoglobin ConcentNovember 2024 11:05pm November 2024 11:31pm34.4 g/dL32.0-35.0[facility] [id number] [address] [facility] 25714Vhv Cell Distribution WidthNov2024 11:05pmNov2024 11:31pm12.5 %11.9-15.3F[facility] [id number] [address] [facility] 60689Kqxgqilb CountNovember 2024 11:05pmNov2024 11:03xz108 10*3/zE017-279ClfoxswzpCorey Hospital [facility] [id number] [address] [facility] [address]95[address]Rwxr Platelet VolumeNov2024 11:05pmNov2024 11:31pm7.3 fL6.3-10.7F[facility] [id number] [address] [facility] 51448Tvjhwxyh Distribution WidthJune 12, 2025 11:05pmNov2024 11:31pm18.67 %0.00-20.00[facility] [id number] [address] [facility] [address]356Jomaibwamgx (%) (Auto)June 12, 2025 11:05pmNov2024 11:31pm65.1 %.[facility] [id number] [address] [facility] [address]Pchtzjuyupw (%) (Auto)June 12, 2025 11:05pmNov2024 11:31pm25.4 %.[facility] [id number] [address] [facility] 465[address]Dzrzlusfq (%) (Auto)June 12, 2025 11:05pmNov2024 11:31pm9.2 %.[facility] [id number] [address] [facility] 29091Lqpgipgtkhz (%) (Auto)June 12, 2025 11:05pmNov2024 11:31pm0.1 %.[facility] [id number] [address] [facility] 04649Sxaekgdre (%) (Auto)June 12, 2025 11:05pmNov2024 11:31pm0.2 %.[facility] [id number] [address] [facility] 18805Lojfhjlct RBC Relative Count (auto)June 12, 2025 11:05pm June 12, 2025 11:31pm0.1 /100{WBC}0-0.5F[facility] [id number] [address] [address]336970Neutrophils # (Auto)June 12, 2025 11:05pmNov2024 11:31pm6.1 10*3/uL1.8-7.7FPe[facility] [id number] [address] 7336970Lymphocytes # (Auto)June 12, 2025 11:05pmJune 12, 2025 11:31pm2.4 10*3/uL1.00-4.8[facility] [id number] [address] [facility] [address]46[address]Qqealinvn # (Auto)June 12, 2025 11:05pmNov2024 11:31pm0.9 10*3/uLAbove high normal0.0-0.8[facility] [id number] [address] 7336970Eosinophils # (Auto)June 12, 2025 11:05pmJune 12, 2025 11:31pm0.0 10*3/uL0.0-0.45[facility] [id number] [address] 7336970Basophils # (Auto)June 12, 2025 11:05pmNov2024 11:31pm0.0 10*3/uL0.0-0.2F[facility] [id number] [address] 7336970Urine ColorNovember 2024 12:20amNovember 2024 1:06amLight-yellowYellowCorey Hospital Ctr [id number] [address] [address]6970Urine AppearanceNovember 2024 12:20amNovember 2024 1:06amClearClearCorey Hospital [facility] [id number] [address] [facility] [address]Myihv Specific GravityNovember 2024 12:20amNovember 2024 1:06am1.0141.001-1.030[facility] [id number] [address] [place], [place] [address]Urine pHNovember 2024 12:20amNovember 2024 1:06am 6.55.0-9.0[facility] [id number] [address] [facility] 08689Twbwn Leukocyte EsteraseNovember 2024 12:20amNovember 2024 1:06am2+Above high normalNegativeCorey Hospital [facility] [id number] [address] [facility] [address]Fikvx NitriteNovember 2024 12:20amNovember 2024 1:06amNegativeNegativeCore[facility] Hospital [facility] [id number] [address] [facility] 13[address]Hpvtb ProteinNovember 2024 12:20amNovember 2024 1:06amTrace mg/dLAbove high normalNegativeCore[facility] [id number] [address] [facility] 85281Fkalu Glucose (UA)June 13, 2025 12:20amNovember 2024 1:06amNormal mg/dLNormalCorey Hospital [facility] [id number] [address] [facility] 45[address]Ikhzz KetonesNovember 2024 12:20amNovember 2024 1:06am1+Above high normalNegativeCore[facility] Hospital [facility] [id number] [address] [facility] 21561Fldjt UrobilinogenNovember 2024 12:20amNovember 2024 1:06amNormal mg/dLNormalCore[facility] [id number] [address] [facility] 24843Tdvct BilirubinNovember 2024 12:20amNovember 2024 1:06amNegativeNegativeCore[facility] Hospital [facility] [id number] [address] [facility] 28373Ihwju Occult BloodNovember 2024 12:20amNovember 2024 1:06amNegativeNegativeCore[facility] [id number] [address] [facility] 15132Qtdvu RBCNovember 2024 12:20amNovemb2024 1:32am 1-2 [HPF]0-4F[facility] [id number] [address] [facility] 35572Kkxfb WBCNovember 2024 12:20amNovember 2024 1:32am 3-4 [HPF]0-4F[facility] [id number] [address] [facility] 77[address]Odkce WBC ClumpsNovember 2024 12:20amNovember 2024 1:32amOccasional [LPF]Above high normalNone [facility] [id number] [address] [facility] 42316Xmjei Squamous Epithelial CellsNovember 2024 12:20am June 13, 2025 1:14bd6-5 [HPF]Above high normal0-2FPe[facility] [id number] [address] [facility] 14729Zgwvr BacteriaNovember 2024 12:20amNove2024 1:32am1+ [HPF]Above high normalNone [facility] [id number] [address] [facility] 97239Ycngo Hyaline CastsNovember 2024 12:20amNove2024 1:32amNone [LPF]0-8[facility] [id number] [address] [facility] 801[address]Ienmb MucusNovember 2024 12:20amNove2024 1:32amRare [LPF][facility] [id number] [address] [facility] [address]Niaoozy LevelNov2024 11:05pmJune 12, 2025 11:49pm68 mg/dLBelow low wmkkve26-337KXE recommended reference rangeRandom Glucose Reference Range is dependent on time and content of last meal. Glucose of more than 200 mg/dL in a nonstressed, ambulatory subject supports the diagnosisof Diabetes Mellitus.[facility] [id number] [address] [facility] 73782Cxxpy Urea NitrogenNovember 2024 11:05pmNov2024 11:49pm8 mg/dL7-[facility] [id number] [address] [facility] 55486SpmprgtngnDzdlwsbc 25th, 2025 11:05pmNov2024 11:49pm0.52 mg/dLBelow low normal0.60-1.20[facility] [id number] [address] [facility] 52947Jnktulitk GFR (CKD-EPI)June 12, 2025 11:05pmNov2024 11:49pm> 60.0 mL/MinCorey Hospital Ctr [id number] [address] [facility] 12467Mflaox LevelNov2024 11:05pmNov2024 11:59rz470 mmol/LBelow low wcqhti603-406AzyryoyvcCorey Hospital Ctr [id number] [address] [facility] 83509Hyhbelezh LevelNov2024 11:05pmNov2024 11:49pm3.7 mmol/L3.5-5.1FPe[facility] [id number] [address] [facility] 169[address]Goggderk LevelNov2024 11:05pmNov2024 11:02gt035 mmol/N48-096DlsbkjketCorey Hospital Ctr [id number] [address] [address]6970Carbon Dioxide LevelNov2024 11:05pmNov2024 11:49pm20.3 mmol/LBelow low szmerl99.0-31.0[facility] [id number] [address] [facility] [address]478Tpawj GapNov2024 11:05pmNov2024 11:49pm 11.4 mEq/L6.0-15.0[facility] [id number] [address] [address]6970Calcium LevelNov2024 11:05pmNov2024 11:49pm8.2 mg/dLBelow low normal8.6-10.3F[facility] [id number] [address] [address]6970Total ProteinNov2024 11:05pmNov2024 11:49pm6.3 g/dLBelow low normal6.4-8.9[facility] [id number] [address] [address]6970AlbuminJune 12, 2025 11:05pmJune 12, 2025 11:49pm 3.5 g/dL3.5-5.7F[facility] [id number] [address] [facility] 9[address]CngyfzpzMamexebc 25th, 2025 11:05pmJune 12, 2025 11:49pm 2.8 g/dLCorey Hospital Ctr [id number] [address] [facility] 39842Beeltwi/Globulin RatioNove2024 11:05pmJune 12, 2025 11:49pm1.3F[facility] [id number] [address] [facility] 36[address]Orlqj BilirubinJune 12, 2025 11:05pmJune 12, 2025 11:49pm0.3 mg/dL0.3-1.0[facility] [id number] [address] [facility] 74078Jqvxgjodv Amino Transf (AST/SGOT)June 12, 2025 11:05pm June 12, 2025 11:49pm14 U/M88-76QvbbqhqikCorey Hospital Ctr [id number] [address] [facility] 96822Hwneqvf Aminotransferase (ALT/SGPT)June 12, 2025 11:05pm June 12, 2025 11:49pm9 U/L7-52[facility] [id number] [address] [facility] 30835Ixrdalhk PhosphataseJune 12, 2025 11:05pmJune 12, 2025 11:49pm59 U/R40-260WcpjauycwCorey Hospital Ctr [id number] [address] [facility] 38162Txofmsyc Creatinine Clearance (ChemJune 12, 2025 11:05pm June 12, 2025 11:36zb548.65[facility] [id number] [address] [facility] 45[address]Gsouekr GlucoseJune 13, 2025 1:27amNove2024 1:96qt949 mg/dLRandom Glucose Reference Range is dependent on time and content of last meal. Glucose of more than 200 mg/dL in a nonstressed, ambulatory subject supports the diagnosis of Diabetes Mellitus.Point of Care testing Vital Signs Vital Reading Result Reference Range Collection Date/Time Height 68 [in_i] June 12, 2025 10:12xoUozwtz561.80 kgJune 12, 2025 10:55pmBody Ymnnfjjvyeb24.5 [degF]97.6-99.0June 12, 2025 10:51pmHeart Rate83 /min 60-100June 13, 2025 1:11amRespiratory rate24 /bjv45-87ZdhlrhnqJune 13, 2025 1:11amOxygen saturation by Pulse eiohtgpr00 %95-100June 13, 2025 1:11amBP Egvcdizd576 mm[Hg]100-140June 13, 2025 1:11amBP Hveyrjlka87 mm[Hg]60-100 June 13, 2025 1:11amHeart Rate72 /iop21-189RyicjakoJune 13, 2025 1:57am Respiratory rate16 /cpq20-33Izzuimaz2024 1:57amOxygen saturation by Pulse xvbdsqdi76 %95-100June 13, 2025 1:57amBP Fbctfxxp356 mm[Hg]100-140 June 13, 2025 1:57amBP Wqnzitmpp61 mm[Hg]60-100June 13, 2025 1:57am Advance Directives Advance Directive Response Recorded Date/ Time Advance Directives No November 08 2:18pm Insurance Providers Guarantor Kavya Guerrero Address [address] [facility] [address]Jntgdnp Info.Home Phone: Coverage Status Update:2025 Payer Group Member ID Coverage Type Subscriber Relationship to Subscriber Effective Date Expiration Date MMO Id: [id number] A Rowe Id: [id number] [address] [facility] [address] Home Phone: Email: [email or web address] SHAFFER Id: [id number] A Rowe Id: [id number] [address] [facility] [address] Home Phone: Email: [email or web address] NICOLE Id: [id number] A Rowe Id: [id number] [address] [facility] [address] Home Phone: Email: [email or web address] Encounters Encounter Location(s) Arrival/Admit Date Discharge/Departure Date Discharge/Departure Disposition Provider(s) Departed Emergency -Emergency Room June 12, 2025 10:41pm June 13, 2025 1:45am Discharged to home care or self care (routine discharge) Departed Clinical-3 [facility] Labor - O/PNovember 2024 12:17amNovember 2024 2:35amDischarged to home care or self care (routine discharge)Bryn Healy , DO Plan of Treatment Future Tests Future scheduled test information is unavailable Pending Tests Test Name Ordered Date Scheduled Date Lamotrigine (Lamictal) Level June 12, 2025 11:05pm Future Visits Future appointment information is unavailable Future Procedures Procedure Name Ordered Date Scheduled Date Lamotrigine (Lamictal) June 12, 2025 10:55 pm June 12, 2025 11:05pm Admit Status Order June 13, 2025 12:23am N ovember 2024 12:23am Discharge Order June 13, 2025 2:24am Novem samantha 2024 2:24am Future Medications Future medication information is unavailable Patient Instructions Instruction Admit Date Epilepsy and Seizures in adults - ED discharge instructionsJune 12, 2025 10:41pm Antepartum Discharge Instructions ([facility])June 13, 2025 12:17am Goals Preferences Type Detail Treatment Intervention Code Status: Full Code
--- OUTSIDE RECORDS SUMMARY | 2025-06-13 14:30 | XMS_ITS | Encounter Summary ---
Author Organization [facility] Address [address] [facility] [place] [address] Care Team Providers Care Director Furniture Name Role Phone Suzanne Uriarte MD Primary Care Provider +1- [phone] Encounter Details DateTypeDepartmentCare Team (Latest Contact Info)Llztxctoawy77/26/2025 2:30 PM ESTAncillary Procedure JOSY LAYTON [facility] [place] [address] Hypertension, unspecified type; Seizure (HCC) Social History Tobacco UseTypesPacks/DayYears UsedDateSmoking Tobacco: Never Assessed Estimated Date of GbajgayyTxfbacgsZfg41/02/2026Based on last menstrual period of 11/13/2024Sex and Gender InformationValueDate RecordedSex Assigned at BirthFemale 12/21/2022 8:22 PM EDTLegal NooXtjkjv20/15/2023 11:40 PM EDTGender Identity Cpmxvz0812/21/2022 8:22 PM EDTSexual TcxnguspyxwPwqkiplq58/05/2023 8:22 PM EDT documented as of this encounter Plan of Treatment DateTypeDepartmentCare Team (Latest Contact Info)Ujdhznnjird11/10/2025 3:00 PM ESTRoutine JOSY LAYTON [facility] [place] [address] Willis Chen DO [address] [place], [place] [id number] NameTypePriorityAssociated DiagnosesDate/TimeUS OB follow up transabdominal approachImagingRoutine Hypertension, unspecified type Seizure (HCC) 06/13/2025 3:02 PM ESTdocumented as of this encounter Goals GoalPatient Goal TypeAssociated ProblemsRecent ProgressPatient-Stated?Author Reminders Care PlanOB RemindersNoOpen Scheduling, Backgrounddocumented as of this encounter Visit Diagnoses Diagnosis Hypertension, unspecified type Seizure (HCC) Other convulsions documented in this encounter Additional Health Concerns Active ProblemsNoted DateDiagnosed DateOB Ywiypuvlv24/29/2023 documented as of this encounter Care Teams Team MemberRelationshipSpecialtyStart [place] [address] [place], [place] [id number] PCP - GeneralFamily Medicine01/14/23documented as of this encounter
--- OUTSIDE RECORDS SUMMARY | 2025-06-13 15:00 | XMS_ITS | Encounter Summary ---
Author Organization [facility] Address [address] [place] [address] Care Team Providers Care Hire Car Driver Name Role Phone Suzanne Uriarte MD Primary Care Provider +1- [phone] Reason for Visit * ReasonCommentsRoutine Visit Encounter Details DateTypeDepartmentCare Team (Latest Contact Info)Hslyaxeqpkh13/26/2025 3:00 PM ESTRoutine [facility] [address] [place] [address] Roula Grullon PA [address] [place], [place] [phone] Third trimester ([facility]); 30 weeks gestation of ([facility]); Antepartum anemia ([facility]) Social History Tobacco UseTypesPacks/DayYears UsedDateSmoking Tobacco: Never Assessed Estimated Date of JzdahsdmAzegzewgUzs24/02/2026Based on last menstrual period of 11/13/2024Sex and Gender InformationValueDate RecordedSex Assigned at BirthFemale 12/21/2022 8:22 PM EDTLegal PsmFlooju14/15/2023 11:40 PM EDTGender Identity Ybzqwe4812/21/2022 8:22 PM EDTSexual KdejsizgyttTsuemmpf80/05/2023 8:22 PM EDT documented as of this encounter Last Filed Vital Signs Vital SignReadingTime TakenCommentsBlood Avzpzoii696/7006/13/2025 3:10 PM EST Pulse--Temperature--Respiratory Rate--Oxygen Saturation--Inhaled Oxygen Concentration--Eczgxr23.4 kg (190 lb 8 oz)06/13/2025 3:10 PM [...] Diagnosis Date Noted Hypertension 01/14/2023 Seizure ([facility]) 07/09/2021 Breech presentation, no version ([facility]) 07/29/2023 Resolved Ambulatory Problems Diagnosis [...] was 11/13/2024. Assessment/Plan ICD-10-CM 1. Third trimester ([facility]) Z34.93 POCT urinalysis dipstick manually resulted 2. 30 weeks gestation of ([facility]) Z3A.30 3. Antepartum anemia ([facility]) O99.019 Ferritin Transferrin Ferritin Transferrin Assessment/Plan 06/12/25. Patient was seen at [place] for epigastric / round ligament pain and cleared. Pt went home and has a seizure. Pt was transported to [facility] and evaluated. Patient lamictal increased and spokewith [...] Plan of Treatment DateTypeDepartmentCare Team (Latest Contact Info)Ljpvquuvraw08/10/2025 3:00 PM ESTRoutine [facility] [address] [place] [address] Willis Chen, [address] [place] [address] NameTypePriorityAssociated DiagnosesOrder ScheduleFerritinLabRoutine Antepartum anemia ([facility]) Expected: 06/13/2025 (Approximate), Expires: 06/13/2026TransferrinLabRoutine Antepartum anemia ([facility]) Expected: 06/13/2025, Expires: 06/13/2026documented as of this encounter Goals GoalPatient Goal TypeAssociated ProblemsRecent ProgressPatient-Stated?Author Reminders Care PlanOB RemindersNoOpen Scheduling, Backgrounddocumented as of this encounter Procedures Procedure NamePriorityDate/TimeAssociated DiagnosisCommentsPOCT URINALYSIS YOYJPJPBUymjghn19/26/2025 3:11 PM EST Third trimester ([facility]) documented in this encounter Results * [...] / LateralityCollection Method / Volume Collection TimeReceived DllfOdwab30/26/2025 3:11 PM EST Narrative Authorizing ProviderResult TypeResult StatusAdCare Hospital of WorcesterOINT OF CARE TEST ENTER/EDIT ORDERABLESFinal Result documented in this encounter Visit Diagnoses Diagnosis Third trimester ([facility]) state, incidental 30 weeks gestation of ([facility]) Antepartum anemia ([facility]) documented in this encounter Additional Health Concerns Active ProblemsNoted DateDiagnosed DateOB Piapnahad65/29/2023 documented as of this encounter Care Teams Team MemberRelationshipSpecialtyStart [place] [address] [address] [place], [place] [phone] PCP - GeneralFamily Medicine01/14/23documented as of this encounter
--- OUTSIDE RECORDS SUMMARY | 2025-06-15 14:51 | XMS_ITS | Encounter Summary ---
Author Organization [facility] Address [address] [place] [address] Care Team Providers Care Lead Python Developer Name Role Phone Suzanne Uriarte MD Primary Care Provider +1- [phone] Encounter Details DateTypeDepartmentCare Team (Latest Contact Info)Hfxdvvnwpfp17/25/2025Travel Social History Tobacco UseTypesPacks/DayYears UsedDateSmoking Tobacco: Never Assessed Estimated Date of KacoooalPkntnxjdHsx07/02/2026ased on last menstrual period of 11/13/2024Sex and Gender InformationValueDate RecordedSex Assigned at BirthFemale 12/21/2022 8:22 PM EDTLegal ZloMdsmhn36/15/2023 11:40 PM EDTGender Identity Mxfugb3212/21/2022 8:22 PM EDTSexual BfdqmcigetfOgxerbnj06/05/2023 8:22 PM EDT documented as of this encounter Plan of Treatment DateTypeDepartmentCare Team (Latest Contact Info)Iirgeuptlbv08/10/2025 3:00 PM ESTRoutine [facility] [address] [phone] Willis Chen DO [address] [place] [address] documented as of this encounter Goals GoalPatient Goal TypeAssociated ProblemsRecent ProgressPatient-Stated?Author Reminders Care PlanOB RemindersNoOpen Scheduling, Backgrounddocumented as of this encounter Visit Diagnoses Not on filedocumented in this encounter Additional Health Concerns Active ProblemsNoted DateDiagnosed DateOB Pgapgwibn05/29/2023 documented as of this encounter Care Teams Team MemberRelationshipSpecialtyStart [place] [address] [address] [place], [place] [phone] PCP - GeneralFamily Medicine01/14/23documented as of this encounter
--- OUTSIDE RECORDS SUMMARY | 2025-06-15 14:51 | XMS_ITS ---
Author Organization [facility] Source Produ ction (ClinicalSummary Clone) Address Unknown Care Team Providers Care Bullet Assembly Press Setter Operator Name Role Phone Unavailable Primary Care Physician Unavailab le Results * [UNITY] ANEUPLOIDY NIPT Performed by: [employer] Component Value Range Date Fraction 12.9% 01/29/2025 08:36 pm UTCRh(D) NIPTRhD CZZFQYBB99/14/2025 08:36 pm UTCSex Chromosome AneuploidyNOT UWUOCKTC91/14/2025 08:36 pm UTCMonosomy XLOW RISK <1 in , 08:36 pm UTCTrisomy 13LOW RISK <1 in , 08:36 pm UTCTrisomy 18LOW RISK <1 in , 08:36 pm UTCTrisomy 21LOW RISK <1 in , 08:36 pm UTCFetal PwpMFCRCE74/14/2025 08:36 pm UTCPregnancy OpyfhibqvWROEVMSKR99/14/2025 08:36 pm UTCFor detailed report, see PDFSee PDF 01/29/2025 08:36 pm UTC01/29/2025 08:36 pm UTC Social History Observation Value Start Date End Date
--- OUTSIDE RECORDS SUMMARY | 2025-06-15 14:51 | XMS_ITS | Encounter Summary ---
Author Organization [facility] Address [address] [facility] [place] [address] Care Team Providers Care Tutor Coordinator Name Role Phone Suzanne Uriarte MD Primary Care Provider +1- [phone] Encounter Details DateTypeDepartmentCare Team (Latest Contact Info)Dtjmiqthjxa94/25/2025Telephone [facility] [place] [facility] [address] [place] [address] Willis Chen, [address] [place] [address] Social History Tobacco UseTypesPacks/DayYears UsedDateSmoking Tobacco: Never Assessed Estimated Date of XgdnrghlHuaragiyGmk20/02/2026ased on last menstrual period of 11/13/2024Sex and Gender InformationValueDate RecordedSex Assigned at BirthFemale 12/21/2022 8:22 PM EDTLegal SqjRujbvj41/15/2023 11:40 PM EDTGender Identity Zkjnqy6712/21/2022 8:22 PM EDTSexual HhuhbmopbdjVnvlkuft51/05/2023 8:22 PM EDT documented as of this [...] Plan of Treatment DateTypeDepartmentCare Team (Latest Contact Info)Dthorwvqhqr84/10/2025 3:00 PM ESTRoutine [facility] [address] [place] [phone] Willis Chen, [address] [place] [address] documented as of this encounter Goals GoalPatient Goal TypeAssociated ProblemsRecent ProgressPatient-Stated?Author Reminders Care PlanOB RemindersNoOpen Scheduling, Backgrounddocumented as of this encounter Visit Diagnoses Not on filedocumented in this encounter Additional Health Concerns Active ProblemsNoted DateDiagnosed DateOB Lodcsmkso09/29/2023 documented as of this encounter Care Teams Team MemberRelationshipSpecialtyStart [place] [address] [place] [address] PCP - GeneralFamily Medicine01/14/23documented as of this encounter
--- OUTSIDE RECORDS SUMMARY | 2025-06-15 14:52 | XMS_ITS | Encounter Summary ---
Author Organization [facility] Address [address] [facility] [place] [address] Care Team Providers Care Mixer Lever Operator Name Role Phone Suzanne Uriarte MD Primary Care Provider +1- [phone] Encounter Details DateTypeDepartmentCare Team (Latest Contact Info)Vztieinuqwv39/26/2025bstract [facility] [address] [place] [address] Willis Chen DO [address] [place] [address] Cornelia [place]i, [place] [address] Social History Tobacco UseTypesPacks/DayYears UsedDateSmoking Tobacco: Never Assessed Estimated Date of RgwtgprrPgbmceqfLdg03/02/2026ased on last menstrual period of 11/13/2024Sex and Gender InformationValueDate RecordedSex Assigned at BirthFemale 12/21/2022 8:22 PM EDTLegal RobWymdcp82/15/2023 11:40 PM EDTGender Identity Gmqsuy2112/21/2022 8:22 PM EDTSexual MsxoiczwhmlWqclikda90/05/2023 8:22 PM EDT documented as of this encounter Plan of Treatment DateTypeDepartmentCare Team (Latest Contact Info)Aqsyphzmeuq69/10/2025 3:00 PM ESTRoutine [facility] [address] [place] [address] Willis Chen DO [address] [place] [address] documented as of this encounter Goals GoalPatient Goal TypeAssociated ProblemsRecent ProgressPatient-Stated?Author Reminders Care PlanOB RemindersNoOpen Scheduling, Backgrounddocumented as of this encounter Visit Diagnoses Not on filedocumented in this encounter Additional Health Concerns Active ProblemsNoted DateDiagnosed DateOB Jfeiqdwkx36/29/2023 documented as of this encounter Care Teams Team MemberRelationshipSpecialtyStart [place] [address] [address] [place] [address] PCP - GeneralFamily Medicine01/14/23documented as of this encounter
--- OUTSIDE RECORDS SUMMARY | 2025-06-15 14:52 | XMS_ITS | Encounter Summary ---
Author Organization [facility] Address [address] [facility] [place] [address] Care Team Providers Care Anesthesiologist Assistant Name Role Phone Suzanne Uriarte MD Primary Care Provider +1- [phone] Encounter Details DateTypeDepartmentCare Team (Latest Contact Info)Jzwlmhpmgmw99/26/2025bstract [facility] [address] [address] Willis Chen DO [address] [place] [address] Cornelia Soni, [place] [address] Social History Tobacco UseTypesPacks/DayYears UsedDateSmoking Tobacco: Never Assessed Estimated Date of JebrgdlgUaawfrwwLhy38/02/2026ased on last menstrual period of 11/13/2024Sex and Gender InformationValueDate RecordedSex Assigned at BirthFemale 12/21/2022 8:22 PM EDTLegal UaoMmglsz53/15/2023 11:40 PM EDTGender Identity Hesher9012/21/2022 8:22 PM EDTSexual VvsooxlmprsXimbhowj82/05/2023 8:22 PM EDT documented as of this encounter Plan of Treatment DateTypeDepartmentCare Team (Latest Contact Info)Gaewvjrntmv03/10/2025 3:00 PM ESTRoutine [facility] [address] [place] [address] Willis Chen DO [address] [place] [address] documented as of this encounter Goals GoalPatient Goal TypeAssociated ProblemsRecent ProgressPatient-Stated?Author Reminders Care PlanOB RemindersNoOpen Scheduling, Backgrounddocumented as of this encounter Visit Diagnoses Not on filedocumented in this encounter Additional Health Concerns Active ProblemsNoted DateDiagnosed DateOB Wrwiamjzh57/29/2023 documented as of this encounter Care Teams Team MemberRelationshipSpecialtyStart [place] [address] [place] [address] PCP - GeneralFamily Medicine01/14/23documented as of this encounter
--- OUTSIDE RECORDS SUMMARY | 2025-06-15 14:52 | XMS_ITS | Clinical Summary ---
Author Organization [facility] Healthcare Address [address] [place] [address] Care Team Providers Care Ms Sql Developer Name Role Phone Koffi Uriarte MD Primary Care Provider +1- [phone] Allergies No known active allergies Medications MedicationSigDispense QuantityRefillsLast FilledStart DateEnd DateStatus MV-Min-Fe Fum-FA-DHA ( 1 PO) Take by [...] mg) by mouth Daily 30 capsule 61515Active lamoTRIgine (LaMICtal) 150 MG tablet 150 mg5Active lamoTRIgine (LaMICtal) 100 MG tablet Take 100 mg by mouth in the morning and 100 mg in the evening.06/13/2025 Discontinued Active Problems ProblemNoted DateDiagnosed DateBreech presentation, no version ([facility]) 07/29/20230524Ejcmjfzflijj50/29/7200Jadaujn19/22/2021Estimated Date of WfulkwwzNluuwzjyZpn63/02/2026ased on last menstrual period of 11/13/2024 Encounters DateTypeDepartmentCare NyirJsefuyesbsi26/26/2025 3:00 PM ESTRoutine [facility] [place] [facility] [address] [place] [address] Roula Grullon PA Third trimester ([facility]); 30 weeks gestation of ([facility]); Antepartum anemia ([facility])06/13/2025 2:30 PM ESTAncillary Procedure [facility] [place] [facility]BP[facility]RIC[facility] [address] [place] [address] Hypertension, unspecified type; Seizure ([facility])06/13/2025bstract [facility] [place] [facility] [address] [place] [address] Lisa Chen, DO 06/13/2025bstract [facility] [place] [facility] [address] [place] [address] Lisa Chen, DO 06/13/2025bstract [facility] [place] [facility] [address] [place] [address] Lisa Chen, DO 06/12/2025linisync Result Encounter [facility] External Department Unsolicited Lisa Chen, DO 06/12/20255813Fgdzni80/25/2025Telephone [facility] [place] [facility] [address] [place] [address] Lisa Chen, DO 05/29/2025 11:40 AM ESTRoutine [facility] [place] [facility] [address] [place] [address] Lisa Chen, DO 28 weeks gestation of ([facility]); Third trimester ([facility]); Hypertension, unspecified type; Seizure ([facility]); Hemoglobin low05/29/2025amboo flowsheet [facility] [place] [facility] [address] [place] [address] Lisa Chen, 05/22/20257808Clavcx58/01/2025Clinisync Result Encounter [facility]OM[facility] External Department Unsolicited Roula Grullon PA 04/30/2025 9:50 AM EDTRoutine [facility] [place] [facility] [address] [place] [address] Roula Grullon PA Second trimester ([facility]); 24 weeks gestation of ([facility]); Hypertension, unspecified type; Seizure (HCC); Diabetes mellitus yrbbystyi23/13/2025amboo flowsheet [facility] [place] [facility] [address] [place] [address] Roula Grullon PA 04/29/20252229Hxmbku24/01/2025Refill [facility] [place] [facility] [address] [place] [address] Lisa Chen, DO Secondary uelwwbddfmri01/20/2025linisync Result Encounter [facility] External Department Unsolicited Roula Grullon PA 04/04/2025 3:10 PM EDTRoutine [facility] [place] [facility] [address] [place] [address] Lisa Chen, 20 weeks gestation of ([facility]); Second trimester ([facility])04/04/2025linisync Result Encounter [facility] External Department Unsolicited Lisa Chen, 04/04/2025linisync Result Encounter [facility] External Department Unsolicited Lisa Chen, 03/28/20253493Arcoei26/05/2025Orders Only [facility] [place] [facility] [address] [place] [address] Damaris Agosto MA 03/16/2025bstract [facility] [place] [facility] [address] [place] [address] [place] [address] Lisa Chen DO from Last 3 Months Social History Tobacco UseTypesPacks/DayYears UsedDateSmoking Tobacco: Never Assessed Estimated Date of EpprdchpMeotchdlSbw88/02/2026ased on last menstrual period of 11/13/2024Sex and Gender InformationValueDate RecordedSex Assigned at BirthFemale 12/21/2022 8:22 PM EDTLegal PnzFxnizi71/15/2023 11:40 PM EDTGender Identity Jumcnl5312/21/2022 8:22 PM EDTSexual YoeprvjozaoTjmzbspr96/05/2023 8:22 PM EDT Last Filed Vital Signs Vital SignReadingTime TakenCommentsBlood Utiedsgw920/7006/13/2025 3:10 PM EST Pulse--Temperature--Respiratory Rate--Oxygen Saturation--Inhaled Oxygen Concentration--Mwfkce32.4 kg (190 lb 8 oz)06/13/2025 3:10 PM HUNZchhen838.3 cm (5' 9 )11/16/2022 12:00 PM EDTBody Mass Index28.13011/16/2022 12:00 PM EDT Plan of Treatment DateTypeDepartmentCare Team (Latest Contact Info)Nzzugyyqoss46/10/2025 3:00 PM ESTRoutine [facility] [address] [place] [address] [place] [address] Lisa Chen DO [address] [place] [address] [address] [place], [place] [id number] Health MaintenanceDue DateLast DoneCommentsHPV/Oudwtz704COVID-19 Vaccine ( season), 01/08/2021Influenza Vaccine (#1) 51, 04/21/2022, 04/18/2021, Additional history existsCervical Cancer Mqlydcmae11/20/2028Pap Smear, 3Pneumococcal Vaccine: Pediatrics (0 to 5 Years) and At-Risk Patients (6 to 64 Years)Aged Out No longer eligible based on patient's age to complete this topic Goals GoalPatient Goal TypeAssociated ProblemsRecent ProgressPatient-Stated?Author Reminders Care PlanOB RemindersNoOpen Scheduling, Background Procedures Procedure NamePriorityDate/TimeAssociated DiagnosisCommentsPOCT URINALYSIS IYRZBFHEEnwgqkz00/26/2025 3:11 PM EST Third trimester ([facility]) TBH UA (CLEAN/CATCH) MANAGER UNIX/MICRO IF IND.Jngqozo0006/12/2025 4:40 PM EST POCT URINALYSIS FNEGEINBXjpixnx70/11/2025 11:46 AM EST 28 weeks gestation of ([facility]) Third trimester ([facility]) GLUCOSE 1 VHHVDipyoeo38/01/2025 12:28 PM EDT ALL CBC WITH AUTO XJDATaraxjr16/01/2025 12:28 PM EDT POCT URINALYSIS VOVCQYNMVznabtb31/13/2025 10:14 AM EDT Second trimester ([facility]) AFP, SERUM, OPEN SPINA GGVOEPRgtvidu76/20/2025 10:31 AM EDT POCT URINALYSIS QBWIBCAXGcyddmw10/17/2025 3:20 PM EDT 20 weeks gestation of ([facility]) Second trimester ([facility]) US OB ACCDKYD6304/04/2025 9:12 AM EDT US OB CERVICAL WSUETE1104/04/2025 9:12 AM EDT PAP CEALULhcqfiq89/20/2025 12:00 AM EDTfrom Last 3 Months or Most Recently Relevant to Health Maintenance Results * (ABNORMAL) POCT urinalysis dipstick manually resulted (06/13/2025 3:11 PM EST) Only the most recent of4 resultswithin the time period is included. ComponentValueRef RangeTest MethodAnalysis TimePerformed AtPathologist Signature Color, UAYellowClarity, UAClearGlucose, UANegativeNegative - 2000(110) ++++ mg/dLBilirubin, UANegativeNegative - 4(70) +++ mg/dLKetones, UANegativeNegative - 160(16) ++++ mg/dLSpec Grav, UA1.0151 - 1.03Blood, UANegativeNegative - 50 Jae/mcLpH, UA6.05 - 9Protein, UANegativeNegative - 2000(20) ++++ mg/dL Urobilinogen, UA0.20.2 - 12 mg/dLLeukocytes, UAPositiveNegative - 500+++ Marsha/mcL Comment:1+Nitrite, UANegativeNegative - PositiveSpecimen (Source)Anatomical Location / LateralityCollection Method / VolumeCollection TimeReceived TimeUrine 06/13/2025 3:11 PM EST Narrative Authorizing ProviderResult TypeResult StatusLewisGale Hospital [facility] TEST ENTER/EDIT ORDERABLESFinal Result * (ABNORMAL) TBH UA (CLEAN/CATCH) MANAGER UNIX/MICRO IF IND. (06/12/2025 4:40 PM EST) ComponentValueRef RangeTest MethodAnalysis TimePerformed AtPathologist SignatureCOLOR URINELT. YELLOWYELLOWTBHCLARITY URINECLEARCLEARTBHSPECIFIC GRAVITY URINE1.0101.005 - 1.025TBHPH URINE7.05.0 - 9.0TBHPROTEIN URINENEGATIVE NEG/TRACE mg/dLTBHGLUCOSE URINE UANEGATIVENEGATIVE mg/dLTBHBILIRUBIN URINE NEGATIVENEGATIVETBHKETONES URINENEGATIVENEGATIVE mg/dLTBHBLOOD URINENEGATIVE NEGATIVETBHNITRITE URINENEGATIVENEGATIVETBHUROBILINOGEN URINE0.20.2 - 1.0 EU/dLTBHLEUKOCYTE ESTERASE URINETRACE(A)NEGATIVETBHURINE MICROSCOPIC INDICATED YESTBHSpecimen (Source)Anatomical Location / LateralityCollection Method / VolumeCollection TimeReceived Time06/12/2025 4:40 PM EST06/12/2025 5:20 PM EST Narrative DRAGANISYKETAN - 06/12/2025 5:32 PM EST Authorizing ProviderResult TypeResult StatusCorey April DOCLINISYNCFinal Result Performing OrganizationAddressCity/State/ZIP CodePhone Number QUITA [facility] * GLUCOSE 1 HOUR (05/19/2025 12:28 PM EDT)ComponentValueRef RangeTest Method Analysis TimePerformed AtPathologist SignatureGLUCOSE 1 DBBQ186<130 mg/dLTBH Specimen (Source)Anatomical Location / LateralityCollection Method / Volume Collection TimeReceived Time05/19/2025 12:28 PM EDT107/19/2024 12:29 PM EDT Narrative GIFTYNC - 05/19/2025 1:15 PM EDT Authorizing ProviderResult TypeResult StatusAmy Mitchel BOATENG BLOOD ORDERABLES Final ResultPerforming OrganizationAddressCity/State/ZIP CodePhone Number [facility] * (ABNORMAL) ALL CBC WITH AUTO DIFF (05/19/2025 12:28 PM EDT)ComponentValueRef RangeTest MethodAnalysis TimePerformed AtPathologist SignatureTBH WBC9.84.0 - 11.0 10 3/uLTBHTBH RBC3.21(L)4.20 - 5.40 10 6/uLTBHTBH HGB10.2(L)12.0 - 16.0 g/dLTBHTBH HCT30.2(L)36.0 - 48.0 %TBHTBH MCV94.181.0 - 99.0 fLTBHTBH MCH31.8 26.7 - 34.0 pgTBHTBH MCHC33.829.9 - 35.2 g/dLTBHTBH RDW12.311.0 - 15.0 %TBHTBH LXK483205 - 450 10 3/uLTBHTBH MPV8.9(L)9.5 - 13.5 [...] 12:34 PM EDT Authorizing ProviderResult TypeResult StatusAmy Seco PACLINISYNCFinal Result Performing OrganizationAddressCity/State/ZIP CodePhone Number [facility]NC [facility] * AFP, SERUM, OPEN SPINA BIFIDA (04/07/2025 10:31 AM EDT)ComponentValueRef Range Test MethodAnalysis TimePerformed AtPathologist SignatureRESULTSReport.TBHTEST RESULTS:*Screen Negative*.TBHGEST. AGE ON COLLECTION DATE20.7. weeksTBHGESTAT. AGE BASED ONLMP.TBHComment: Recalculations are not recommended when gestational dating by LMP and ultrasound are within 10 days. MATERNAL AGE AT EDD31.8. yrTBHRACECaucasian.SSKBFXQJO012. lbsTBHINSULIN DEP DIABETESNo.TBHMULTIPLE GESTATIONNo.TBHAFP VALUE45.0. ng/mLTBHAFP MOM0.82.TBHOSBR RISK 1 UA56317.TBHINTERPRETATIONComment.TBHComment: Interpretation: Screen Negative This result is screen [...] Customer Services to discuss available options. ??The [place] [employer] recommends amniocentesis be offered to women age 35 and older. COMMENT:Comment.TBHComment: Jeny Avila, Ph.D., [facility] Director References: Available Upon Request. Multiples Of Median Cutoffs ?For AFP Elevations Becerra ?? 2.5 ? Black ?2.8 IDD ? 2.0 ? Twins ?4.5 ?Abbreviation Definitions IDD - Insulin Dep Diabetes OSBR - Open Spina Bifida Risk For further inquiries contact [facility] at [phone]. This test was developed and its performance characteristics determined by [employer]. It has not been cleared or approved by the Food and Drug Administration. Performed at: ??[facility] [address] [place], [place] ??[id number] Expanded Duty Dental Assistant: Abdulaziz Aquino [facility], Phone: ??[phone] Specimen (Source)Anatomical Location / LateralityCollection Method / Volume Collection TimeReceived Time04/07/2025 10:31 AM EDT04/07/2025 10:35 AM EDT Narrative CLINISYNC - 04/09/2025 6:08 PM EDT N N LMP [id number] 2 16 N 1 Y 183 N N N N N White/ Authorizing ProviderResult TypeResult StatusAmy [facility] BLOOD ORDERABLES Final ResultPerforming OrganizationAddressCity/State/ZIP CodePhone Number [facility] * OB CERVICAL LENGTH (04/04/2025 9:12 AM EDT)Anatomical RegionLaterality ModalityOtherSpecimen (Source)Anatomical Location / LateralityCollection Method / VolumeCollection TimeReceived Time04/04/2025 9:12 AM EDT Narrative 04/04/2025 9:14 AM EDT [facility] ?[address] ? [place] [address] ? Ultrasound Report ? Signed ? Patient: HUNTER,PRINCESS A ?MR#: [id number] ?? : 1995 ?Acct:[id number] ?? Age/Sex: 29 / F ?ADM Date: 09/16/25 ?? Loc: US ? Attending Dr: Lisa Chen D.O. ? Ordering Physician: Lisa Chen D.O. ?? Date of Service: 04/03/25 ?? Procedure(s): US OB cervical length ?? Accession Number(s): [id number] ? cc: Lisa Chen D.O.; KOFFI URIARTE M.D. ? [facility] ? [address] ? [place] [address] ? Patient Name: ?? PRINCESS HUNTER ? MRN: [facility]:[id number] ? date: 1995 ?Sex: F ?? Assigned Patient Location: US ?? Current Patient Location: ? Accession/Order Number: [id number] ?? Exam Date: 04/03/2025 ??18:53 ?Report Date: [...] ?? 4 extremities were surveyed by the superintendent maintenance and no abnormalities were ?? reported. ??The [...] Dictation Location: RADIO-PC-30 ? Electronically authenticated by: [id number] ??Y ?? Date: 04/04/2025 ??09:12 ? Dictated By: ?Cyndi Pisano M.D. ? Signed By: ?04/04/25 0914 ? DD/ 0912 ? TD/TT: ? Senior Publications Specialist: Procedure Note Radiology, Radiologist, - 04/04/2025 [place] [address] Ultrasound Report Signed Patient: PRINCESS HUNTER [facility]#: [id number] : 1995Acct:[id number] Age/Sex: 29 / FADM Date: 04/03/25 Loc: US Attending Dr: Lisa Chen D.O. Ordering Physician: Lisa Chen D.O. Date of Service: 04/03/25 Procedure(s): US OB cervical length Accession Number(s): [id number] cc: Lisa Chen D.O.; KOFFI URIARTE M.D. [place] [id number] Patient Name: PRINCESS HUNTER MRN: [facility]:[id number] date: 1995 Sex: F Assigned Patient Location: Current Patient Location: Accession/Order Number: [id number] Exam Date: 04/03/2025 18:53 Report Date: 04/04/2025 [...] andall 4 extremities were surveyed by the superintendent maintenance and no abnormalities were reported. The stomach, [...] Pisano M.D. 04/04/2025 9:12 AM Dictation Location: [place] [address] Electronically authenticated by: [id number] Y Date: 9:12 Dictated By: Cyndi Pisano M.D. Signed By:04/04/2514 DD/ 0912 TD/TT: Senior Publications Specialist: Authorizing ProviderResult TypeResult StatusCorey April DOCLINISYNC IMAGINGFinal Result * US OB ANATOMY (04/04/2025 9:12 AM EDT)Anatomical RegionLateralityModalityOther Specimen (Source)Anatomical Location / LateralityCollection Method / Volume Collection TimeReceived Time04/04/2025 9:12 AM EDT Narrative 04/04/2025 9:14 AM EDT [facility] ?[address] ? [place] [address] ? Ultrasound Report ? Signed ? Patient: PRINCESS HUNTER ?MR#: [id number] ?? : 1995 ?Acct:[id number] ?? Age/Sex: 29 / F ?ADM Date: 04/03/25 ?? Loc: US ? Attending Dr: Lisa Chen D.O. ? Ordering Physician: Lisa Chen D.O. ?? Date of Service: 04/03/25 ?? Procedure(s): US OB anatomy ?? Accession Number(s): [id number] ? cc: Lisa Chen D.O.; KOFFI URIARTE M.D. ? [facility] ? [address] [facility] ? [place] [address] ? Patient Name: ?? PRINCESS HUNTER ? MRN: [facility]:[id number] ? date: 1995 ?Sex: F ?? Assigned Patient Location: ?? Current Patient Location: ? Accession/Order Number: [id number] ?? Exam Date: 04/03/2025 ??18:53 ?Report Date: [...] ?? 4 extremities were surveyed by the superintendent maintenance and no abnormalities were ?? reported. ??The [...] M.D. ??04/04/2025 9:12 AM ? Dictation Location: [facility]- ? Electronically authenticated by: [id number] ??Y ?? Date: 04/04/2025 ??09:12 ? Dictated By: ?Cyndi Pisano M.D. ? Signed By: ?04/04/25 0914 ? DD/ 0912 ? TD/TT: ? Senior Publications Specialist: Procedure Note Radiology, Radiologist, MD - 04/04/2025 [place] [address] Ultrasound Report Signed Patient: PRINCESS HUNTER [facility]#: [id number] : 1995Acct:[id number] Age/Sex: 29 / FADM Date: 04/03/25 Loc: US Attending Dr: Lisa Chen D.O. Ordering Physician: Lisa Chen D.O. Date of Service: 04/03/25 Procedure(s): US OB anatomy Accession Number(s): [id number] cc: Lisa Chen D.O.; KOFFI URIARTE M.D. [place] [id number] Patient Name: PRINCESS HUNTER MRN: [facility]:[id number] date: 1995 Sex: F Assigned Patient Location: US Current Patient Location: Accession/Order Number: [id number] Exam Date: 04/03/2025 18:53 Report Date: 04/04/2025 [...] andall 4 extremities were surveyed by the superintendent maintenance and no abnormalities were reported. The stomach, [...] Pisano M.D. 04/04/2025 9:12 AM Dictation Location: [place] [address] Electronically authenticated by: [id number] Y Date: 509:12 Dictated By: Cyndi Pisano M.D. Signed By:04/04/25913 DD/ 1 TD/TT: Senior Publications Specialist: Authorizing ProviderResult TypeResult StatusCorey April DOCLINISYNC IMAGINGFinal Result * Pap Smear (03/07/2025 12:00 AM EDT)Specimen (Source)Anatomical Location / LateralityCollection Method / VolumeCollection TimeReceived TimeSwabCervical swab / Unknown Narrative Authorizing ProviderResult TypeResult StatusAmy Mitchel PALAB CYTOLOGY ORDERABLES Final ResultPerforming OrganizationAddressCity/State/ZIP CodePhone Number EXTERNAL LAB from Last 3 Months or Most Recently Relevant to Health Maintenance Additional Health Concerns Active ProblemsNoted DateDiagnosed DateOB Bariootgd38/29/2023 Insurance Care Teams Team MemberRelationshipSpecialtyStart [place] [address] [place] [address] PCP - GeneralFamily Medicine01/14/23
--- OUTSIDE RECORDS SUMMARY | 2025-06-15 14:52 | XMS_ITS | Encounter Summary ---
Author Organization [facility] Address [address] [place] [address] Care Team Providers Care Editorial Clerk Name Role Phone Suzanne Uriarte MD Primary Care Provider +1- [phone] Encounter Details DateTypeDepartmentCare Team (Latest Contact Info)Gdeawfjfbat43/25/2025linisync Result Encounter [facility] External Department Unsolicited Willis Chen DO [address] [place] [address] Social History Tobacco UseTypesPacks/DayYears UsedDateSmoking Tobacco: Never Assessed Estimated Date of RvllrfycGcwrvgbkBht37/02/2026Based on last menstrual period of 11/13/2024Sex and Gender InformationValueDate RecordedSex Assigned at BirthFemale 12/21/2022 8:22 PM EDTLegal FbhYpmvoy86/15/2023 11:40 PM EDTGender Identity Clrhvn9912/21/2022 8:22 PM EDTSexual PcruvkerptaNiakiaom51/05/2023 8:22 PM EDT documented as of this encounter Plan of Treatment DateTypeDepartmentCare Team (Latest Contact Info)Nslgepovkmf58/10/2025 3:00 PM ESTRoutine [facility] [place] [facility] [address] [place] [phone] Willis Chen DO [address] [place] [address] documented as of this encounter Goals GoalPatient Goal TypeAssociated ProblemsRecent ProgressPatient-Stated?Author Reminders Care PlanOB RemindersNoOpen Scheduling, Backgrounddocumented as of this encounter Procedures Procedure NamePriorityDate/TimeAssociated DiagnosisCommentsTBH UA (CLEAN/CATCH) CYLINDER TESTER/MICRO IF IND.Tecuvfb8406/12/2025 4:40 PM EST documented in this encounter Results * (ABNORMAL) TBH UA (CLEAN/CATCH) CYLINDER TESTER/MICRO IF IND. (06/12/2025 4:40 PM EST) ComponentValueRef RangeTest MethodAnalysis TimePerformed AtPathologist SignatureCOLOR URINELT. YELLOWYELLOWTBHCLARITY URINECLEARCLEARTBHSPECIFIC GRAVITY URINE1.0101.005 - 1.025TBHPH URINE7.05.0 - 9.0TBHPROTEIN URINENEGATIVE NEG/TRACE mg/dLTBHGLUCOSE URINE UANEGATIVENEGATIVE mg/dLTBHBILIRUBIN URINE NEGATIVENEGATIVETBHKETONES URINENEGATIVENEGATIVE mg/dLTBHBLOOD URINENEGATIVE NEGATIVETBHNITRITE URINENEGATIVENEGATIVETBHUROBILINOGEN URINE0.20.2 - 1.0 EU/dLTBHLEUKOCYTE ESTERASE URINETRACE(A)NEGATIVETBHURINE MICROSCOPIC INDICATED YESTBHSpecimen (Source)Anatomical Location / LateralityCollection Method / VolumeCollection TimeReceived Time06/12/2025 4:40 PM EST06/12/2025 5:20 PM EST Narrative CLINISYNC - 06/12/2025 5:32 PM EST Authorizing ProviderResult TypeResult StatusCorey April DOCLINISYNCFinal Result Performing OrganizationAddressCity/State/ZIP CodePhone Number [facility]NC [facility] documented in this encounter Visit Diagnoses Not on filedocumented in this encounter Additional Health Concerns Active ProblemsNoted DateDiagnosed DateOB Cnbpcpcvb07/29/2023 documented as of this encounter Care Teams Team MemberRelationshipSpecialtyStart [place] [address] [place] [address] PCP - GeneralFamily Medicine01/14/23documented as of this encounter
--- OUTSIDE RECORDS SUMMARY | 2025-06-15 14:52 | XMS_ITS | CCD ---
Author Organization [facility] Care Team Providers Care Loader Unloader Name Role Phone Uriarte, Koffi A Unavailable [...] Primary Care Provider Koffi Uriarte MD Unavailable [phone] Willis Chen Attending Unavailable Willis Chen Admitting Unavailable Provider, None Primary Care Unavailable TARAS FAUSTIN Admitting Unavailable TARAS FAUSTIN Attending Unavailable Vinita PABLO Attending Unavailable MILAGRO HUGHES Primary Care Unavailable Spenser COLLINS Attending Unavailable MILAGRO HUGHES Primary Care Unavailable Chapito REINOSO, Koffi Rosas Primary Care Provider Koffi Uriarte MD Primary Care Provider [phone] NEDRA CALDERON Attending Unavailable KOFFI URIARTE Primary Care UnavailKOFFI Aguilera Attending UnavailKOFFI Aguilera Primary Care Unavailmary Uriarte MD, Koffi Primary Care Provider [phone] ROULA GRULLON Attending Unavailable WILLIS CHEN Attending Unavailable WILLIS CHEN Referring Unavailable ROULA GRULLON Attending Unavailable WILLIS CHEN Attending Unavailable ROULA GRULLON Attending Unavailable WILLIS CHEN Attending Unavailable Allergies Allergy ClassificationReported Allergen(s)Allergy TypeDate of OnsetReaction(s) Facility (2 sources)No Known Medication Allergies; Translations: [No Known Medication Allergies]Propensity to adverse reactions (disorder)[facility] Repository Medications Current Medications MedicationDrug Class(es)DatesSig (Normalized)Sig [...] Day] (9 sources)Progestin, Estrogen, Progestin-containing Intrauterine DeviceStart: 59-23-5828Jjavbuos 100 mcg-20 mcg oral tablet 1 tab(s), Oral, Daily, 3 EA, Refill(s) [facility] #0220 Start Date: 06/05/19 Status: OrderedStart: 96-07-1496xmkh 1 tablet by mouth once dailyOrsythia 0.1-20 MG-MCG Oral Tablet TAKE 1 TABLET DAILY. Quantity: 1 Refills: 3 Koffi Uriarte MD Start : 12-Oct-2015 Active 28 Tablet Packtake 0.1-20 tablets by mouth once levonorgestrel-ethinyl estradiol (LUTERA) 0.1-20 MG-MCG per tablet Take 1 tablet by mouth daily. 0 Activelabetalol hydrochloride 200 mg oral tablet (20 sources)beta-Adrenergic BlockerStart: 45-72-5950oqeo 1 tablet by mouth in the morninglabetalol (Normodyne) 200 MG tablet Indications: Secondary hypertension Take 1 tablet (200 mg) by mouth in the morning and 1 tablet (200 mg) before bedtime. 60 tablet 3 04/18/2025 ActiveStart: 09-12-2024 End: 98-85-6787alrh 1 tablet by mouth twice dailylabetalol (Normodyne) 300 mg tablet Indications: Benign essential hypertension Take 1 tablet (300 mg) by mouth 2 times a day. 60 tablet 5 09/12/2024 03/11/2025 ActiveStart: 11-09-2023 End: 35-99-5535ombr 1 tablet by mouth twice dailylabetalol (Normodyne) 200 MG tablet Indications: Secondary hypertension TAKE 1 TABLET BY MOUTH TWICE A DAY 60 tablet 3 09/06/2024 ActivelamoTRIgine 100 mg oral tablet (20 sources)Mood Stabilizer, Anti-epileptic AgentStart: 30-94-9216ohld 100 mg by mouth once dailyLamotrigine Active 100 MG PO Daily November 09, 2023 12:00am Start: 72-74-0817nkdf 1 tablet by mouth twice dailylamoTRIgine (LaMICtal) 100 mg tablet Indications: Unspecified convulsions (Multi) TAKE 1 TABLET BY MOUTH TWICE A DAY 60 tablet 11 01/03/2024 ActivelamoTRIgine (LAMICTAL) 25 mg tablet levothyroxine sodium 0.025 mg oral tablet (1 source)l-ThyroxineStart: 12-07-2022 End: 61-35-4994tvem 1 tablet by mouth once daily before mealtimelevothyroxine (Synthroid, Levoxyl) 25 mcg tablet Take 1 tablet (25 mcg) by mouth once daily in the morning. Take before meals. 0 12/07/2022 04/30/2023 Discontinued (Therapy completed)lisinopril 10 mg oral tablet (20 sources)Angiotensin Converting Enzyme InhibitorStart: 05-13-2023 End: 59-66-7052yggm 1 tablet by mouth once dailylisinopril 10 mg tablet Indications: Benign essential hypertension Take 1 tablet (10 mg) by mouth once daily. 90 tablet 3 05/13/2023 05/03/2024 Discontinued (Med List Cleanup)Start: 03-09-2023 End: 74-10-1667jrlr 1 tablet by mouth once dailylisinopril 10 mg tablet Indications: Primary hypertension TAKE 1 TABLET BY MOUTH EVERY DAY 30 tablet 6 03/09/2023 04/30/2023 Discontinued (Entered in Error)Start: 72-04-1775qrmm 1 tablet by mouth once dailyLisinopril 10 MG Oral Tablet TAKE 1 TABLET DAILY. Quantity: 90 Refills: 3 Ordered: 02-Jan-2022 Koffi Uriarte MD Start : 14-Oct-2020 ActiveStart: 04-32-2449udxragubyn (ZESTRIL, PRINIVIL) 10 mg tablet Take by mouth q 24 HR. 0 10/14/2020 ActiveComment on above:Take by mouth q 24 HR.24 hr metFORMIN hydrochloride 500 mg extended release oral tablet (1 source)BiguanideStart: 11-16-2022 End: 88-24-3083elvp 1 tablet by mouth once daily at mealtimemetFORMIN XR 500 mg 24 hr tablet Take 1 tablet (500 mg) by mouth once daily in the evening. Take wit h meals. 0 11/16/2022 04/30/2023 Discontinued (Therapy completed)naproxen 500 mg oral tablet (1 source)Nonsteroidal Anti-inflammatory DrugStart: 66-05-1981hsne 1 tablet by mouth twice dailyNaprosyn 500 mg Tab 500 mg = 1 tab(s), Oral, BID, # 120 tab(s), Refills(s) 0, [facility]: [id number] Start Date: 06/05/19 Status: Ordered MV-Min-Fe Fum-FA-DHA ( 1 PO) (20 sources) MV-Min-Fe Fum-FA-DHA ( 1 PO) Take by mouth Active promethazine hydrochloride 12.5 mg oral tablet (20 sources)PhenothiazineStart: 57-32-7003bmfp 2 tablets by mouth every six hours [...] for nausea. 30 tablet 1 02/02/2025 ActiveStart: 64-42-9923bdls 2 tablets by mouth every six hours [...] for nausea. 30 tablet 2 02/01/2025 ActiveStart: 06-32-7829teho 2 tablets by mouth every six hours [...] 0.9 % injection 3 mL (1 source)Start: 61-25-0034deleel chloride flush 0.9 % injection 3 mL Completed/Discontinued Medications MedicationDrug Class(es)DatesSig (Normalized)Sig (Original)busPIRone hydrochloride 10 mg oral tablet (3 sources)Start: 51-29-1255gbpv 1 tablet by mouth three times daily as needed busPIRone HCl - 10 MG Oral Tablet TAKE 1 TABLET 3 times daily PRN Quantity: 60 Refills: 1 Koffi Uriarte MD Start : 28-May-2020 Activegadoteridol (PROHANCE) injection 15 mL (1 source)Start: 05-09-2020 End: 62-96-1363axnjkzzirsa (PROHANCE) injection 15 mLmelatonin 10 mg oral tablet (8 sources)Start: 81-42-4528qooz 1 tablet by mouth at bedtimeMelatonin 10 MG Oral Tablet TAKE 1 TABLET Bedtime Quantity: 30 Refills: 3 Ordered: 25-Apr-2020 Doe Andrade DO Start : 25-Apr-2020 Active Patient requesting compounded melatoninmetroNIDAZOLE 500 mg oral tablet (10 sources)Nitroimidazole AntimicrobialStart: 09-09-2021 End: 25-39-6208kkpp 1 tablet by mouth twice dailymetroNIDAZOLE (FLAGYL) 500 mg tablet Indications: Acute vaginitis Take 1 tablet by mouth twice daily. for vaginosis. Do not drink alcohol while taking this medication 14 tablet 0 02/03/2022 ActiveStart: 01-51-5284pmewhDZYYNDTV 0.75 % Vaginal Gel INSERT 1 APPLICATORFUL INTRAVAGINALLY AT BEDTIME NIGHTLY. Quantity: 1 Refills: 0 Ordered: 20-May-2021 Koffi Uriarte MD Start : 20-May-2021 ActiveStart: 06-09-2019 End: 90-04-6125WmksnBkr-Vaginal 0.75% gel with applicator 1 bruce, Vaginal, BID, 70 gram, Refill(s) 0, [facility]0220 Start Date: 06/09/19 Stop Date: 06/14/19 Status: OrderedComment on above:Take 1 tablet by mouth twice daily. for vaginosis. Do not drink alcohol while taking this medicationondansetron 4 mg disintegrating oral tablet (11 sources)Serotonin-3 Receptor AntagonistStart: 01-12-2025 End: 44-08-7555hhtg 1 tablet by mouth every six hours for nauseaondansetron ODT (Zofran-ODT) 4 MG disintegrating tablet Indications: Nausea and vomiting in ([facility]) Take 1 tablet (4 mg) by mouth every 6 (six) hours if needed for nausea or vomiting 30 tablet 2 01/12/2025 02/11/2025 ExpiredStart: 04-49-5790omfp 4 mg by mouth every eight hoursOndansetron Hcl Active 4 MG PO Every 8 hours November 09, 2023 12:00amStart: 02-10-2023 End: 43-03-4071vgnt 2 tablets by mouth twice daily as needed for nausea ondansetron (Zofran) 4 mg tablet Take 2 tablets (8 mg) by mouth 2 times a day as needed for nausea.02/10/2023 05/03/2024 Discontinued (Med List Cleanup)Orsythia 0.1-20 MG-MCG Oral Tablet (3 sources)Start: 26-03-4430mwbi 1 tablet by mouth once dailyOrsythia 0.1-20 MG- MCG Oral Tablet TAKE 1 TABLET DAILY. Quantity: 1 Refills: 3 Ordered: 25-May-2019 Koffi Uriarte MD Start : 12-Oct-2015 Activesertraline 50 mg oral tablet (4 sources)Serotonin Reuptake InhibitorStart: 46-73-4430sqdx 1 tablet by mouth once dailySertraline HCl - 50 MG Oral Tablet TAKE 1 TABLET DAILY. Quantity: 30 Refills: 11 Ordered: 14-Oct-2020 Koffi Uriarte MD Start : 28-May-2020 Sxwloq35 ml sodium chloride 9 mg/ml injection (1 source)Start: 04-18-2020 End: 04-19-20200.9 % sodium chloride bolus Problems Active Problems Problem ClassificationProblemDateDocumented DateEpisodic/ChronicAnxiety disorders (20 sources)Anxiety; Translations: [Anxiety state, unspecified]Onset: 10-02-2022 04-00-6968GsxdfafHgyeydlsmfysg and procreative management (7 sources)Contraception ; Translations: [Encounter for surveillance of contraceptives, unspecified]Onset: 500850-77-6061LfrkoqdbWxetdfii; convulsions (1 source)Idiopathic generalized epilepsy; Translations: [Nonintractable generalized idiopathic epilepsy without status epilepticus (HCC)]Chronic Essential hypertension (20 sources)Benign essential hypertension; Translations: [Benign essential hypertension]Onset: 10-02-2022 Resolved: 817760-98-0264AudwrioIyzbodktbe during ; abruptio placenta; placenta previa (2 sources)Antepartum hemorrhage; Translations: [Hemorrhage in early , unspecified]Onset: 50-68-7748YngbacpqVbbsitkhueczv and screening for infectious disease (4 sources)Encounter for screening for infections with a predominantly sexual mode of transmission; Translations: [Exposure to sexually transmissible disorder]Onset: 865231-82-2055JconbyekYaqhlvmmm disorders (3 sources)Missed period; Translations: [Irregular menstruation, unspecified] 34-19-7382JwvtkzoOrphsr and vomiting (2 sources)Nausea and vomiting; Translations: [Nausea with vomiting, unspecified]99-96-1850LgzsyynfMydkybiepqd deficiencies (3 sources)Vitamin D deficiency; Translations: [Vitamin D deficiency, unspecified]Onset: 419224-16-4401JbrvqigVmlzk complications of (1 source)Vomiting of , unspecified; Translations: [Unspecified vomiting of , unspecified as to episode of care or not applicable] 81-47-7668LwgkacsbMqrke female genital disorders (18 sources)Vaginal discharge; Translations: [Leukorrhea, not specified as infective]Onset: 10-02-2022 Resolved: 571640-92-2019CdpzesoeTwmoe nutritional; endocrine; and metabolic disorders (3 sources)Obese class I; Translations: [Obesity, unspecified]Onset: 07-04-2021 55-13-3104JxzxqtbOjhbh and delivery including normal (12 sources); Translations: [Encounter for supervision of normal , unspecified, unspecified trimester]23-02-1815LcxssmclOrarz screening for suspected conditions (not mental disorders or infectious disease) (4 sources)Patient encounter status; Translations: [Encounter for other specified screening]76-70-6593IisicctyMybmq upper respiratory infections (20 sources)Chronic sinusitis; Translations: [Chronic pansinusitis]Onset: 10-02-2022 Resolved: 436870-59-4289SwzozvuHjgnly media and related conditions (5 sources)Chronic otitis media; Translations: [Bilateral chronic otitis media] ChronicPolyhydramnios and other problems of amniotic cavity (2 sources)Subchorionic hematoma; Translations: [Other specified disorders of amniotic fluid and membranes, second trimester, not applicable or unspecified] 16-31-6454UwiwraurLnypgdiz codes; unclassified (2 sources)Gestation period, 11 weeks; Translations: [11 weeks gestation of ]44-24-8310AfnivvauPcqpusmt codes; unclassified (2 sources)Gestation period, 12 weeks; Translations: [12 weeks gestation of ]93-03-7146MpawhksoAnvauztp codes; unclassified (2 sources)Gestation period, 16 weeks; Translations: [16 weeks gestation of ]70-07-9543EsmtixqjPrizswvr codes; unclassified (2 sources)Gestation period, 20 weeks; Translations: [20 weeks gestation of ]23-25-8692VojgwdtzIwqdxwja codes; unclassified (2 sources)Gestation period, 24 weeks; Translations: [24 weeks gestation of ]56-97-5141TyuikgjaBfekukvexywi (1 source)Unknown / UNK(Unknown)Onset: 70-21-0509Qvuzujngedhh (3 sources)APPOINTMENT CANCELLEDOnset: 040506-11-6509Ccwnlwbyqilm (20 sources)OB RemindersOnset: 589580-96-4568 Past or Other Problems Problem ClassificationProblemDateDocumented DateEpisodic/ChronicAcute and chronic tonsillitis (9 sources)Amygdalolith; 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 Calderon. lamotrigine;Inflammatory diseases of female pelvic organs (18 sources)Bacterial vaginosis; Translations: [Vaginitis and vulvovaginitis, unspecified]Onset: 07-04-2021 Resolved: 42-93-2882ShghetzmWzoiymu and fatigue (4 sources)Fatigue; Translations: [Other fatigue]Onset: EpisodicMalposition; malpresentation (20 sources)Breech presentation; Translations: [Maternal care for breech presentation, not applicable or unspecified]Onset: 222819-27-3217Uqpbesrv Nonspecific chest pain (20 sources)Chest pain; Translations: [Chest pain, unspecified]Onset: 10-02-2022 Resolved: 226309-03-8804NibecvuwFbbnpreiyep deficiencies (20 sources)Cobalamin deficiency; Translations: [Other B-complex deficiencies] Onset: 329396-34-4619IfreenjdVxmgt circulatory disease (20 sources)Feeling of lump in throat; Translations: [Gastrointestinal malfunction arising from mental factors]Onset: 10-02-2022 Resolved: 100093-43-7552DzmcrllcRpqrq circulatory disease (20 sources)Elevated blood-pressure reading without diagnosis of hypertension; Translations: [Elevated blood pressure reading without diagnosis of hypertension]Onset: 10-02-2022 Resolved: 407694-56-1166ZjupyrydVixlc ear and sense organ disorders (20 sources)Conductive hearing loss, bilateral; Translations: [Conductive hearing loss, bilateral]Onset: 10-02-2022 Resolved: 930875-24-4645OukcrliHeszv nutritional; endocrine; and metabolic disorders (9 sources)Obesity; Translations: [Obesity, unspecified]Onset: 03-28-2023 Resolved: 887878-24-9690FvnbqbrIasci nutritional; endocrine; and metabolic disorders (19 sources)Abnormal weight gain; Translations: [Abnormal weight gain]Onset: 10-02-2022 Resolved: 300844-87-7962QgnceqhqXgugf skin disorders (20 sources)Loss of hair; Translations: [Alopecia, unspecified]Onset: 10-02-2022 Resolved: 899359-83-7281GoqjvdruRqbhy upper respiratory disease (20 sources)Allergic rhinitis; Translations: [Allergic rhinitis, cause unspecified]Onset: 10-02-2022 Resolved: 251091-85-8180UmcpieqEukkyw media and related conditions (19 sources)Chronic otitis media; Translations: [Unspecified otitis media]Onset: 10-02-2022 Resolved: 083094-00-4237EdtpfcdfUkvbrgwz codes; unclassified (20 sources)Insomnia; Translations: [Insomnia, unspecified]Onset: 10-02-2022 Resolved: 308911-18-3633QqqoencwGdsgfbdcposg (1 source)R07.9 51297/8Onset: 46-58-7592Znuuohwrgdnd (5 sources)Patient encounter status; Translations: [Encounter for audiology evaluation]Unclassified (2 sources)Onset: 203209-96-8090HDNYLEW: Highlighted row has not occurred! Residual codes; unclassified (17 sources)DiseaseEpisodic Results Test NameValueInterpretationReference RangeFacilityALL CBC WITH AUTO DIFFon 01-29-4857COJJCUDEB ABSOLUTE AUTO0.0NOMS HealthcareBasophils/100 WBC (Bld)0.1 % Low0.2 - 2.0 %NOMS HealthcareEosinophils/100 WBC (Bld)0.1 %Low0.9 - 7.0 %NOMS HealthcareErythrocyte distribution width (RBC) [Ratio]12.3 %11.0 - 15.0 %NOMS HealthcareHematocrit (Bld) [Volume fraction]30.2 %Low36.0 - 48.0 %[facility]OMS HealthcareHemoglobin (Bld) [Mass/Vol]10.2 g/dLLow12.0 - 16.0 g/dLNOSD Healthcare IMMATURE GRANULOCYTES ABS AUTO0.07HighNOMS HealthcareImmature granulocytes/100 WBC (Bld)0.7 %High0.0 - 0.5 %[facility] HealthcareInterpretation and review of laboratory resultsAbnormalNOMS HealthcareLYMPHOCYTES ABSOLUTE AUTO2.2NOMS HealthcareLymphocytes/100 WBC (Bld)22.1 %20.5 - 60.0 %NOMS HealthcareMCH (RBC) [Entitic mass]31.8 pg26.7 - 34.0 pgLiberty HospitalMCHC (RBC) [Mass/Vol]33.8 g/dL 29.9 - 35.2 g/dLLiberty HospitalMCV (RBC) [Entitic vol]94.1 fL81.0 - 99.0 fLNOSD HealthcareMONOCYTES ABSOLUTE AUTO0.6NOSD HealthcareMonocytes/100 WBC (Bld)5.9 % 1.7 - 12.0 %NOM HealthcareNEUTROPHILS ABSOLUTE AUTO6.9HighLiberty Hospital Neutrophils/100 WBC (Bld)71.1 %43.0 - 75.0 %NOM HealthcarePlatelet mean volume (Bld) [Entitic vol]8.9 fLLow9.5 - 13.5 fLNOSD HealthcareTBH EO #0.0NOSD HealthcareTBH RAV786GXJY HealthcareTB RBC3.21LowNOSD HealthcareTBH WBC9.8NOSD HealthcareCLINISYNCNOMS HealthcareUrinalysis macro (dipstick) panel (U)on 13-80-0296Xwhptmdsv, UANegativeNegative - 4(70) +++ mg/dLNOSD HealthcareBlood, UANegativeNegative - 50 Jae/mcLNOSD HealthcareClarity, UAClearNOSD Healthcare Color, UAYellowNOSD HealthcareGlucose, UANegativeNegative - 2000(110) ++++ mg/dL [facility] HealthcareInterpretation and review of laboratory resultsAbnormalNOSD HealthcareKetones, UANegativeNegative - 160(16) ++++ mg/dLDELTA COMMUNITY [facility]ICAL [facility]ENTER Healthcare Leukocytes, UA2+Negative - 500+++ Marsha/mcLNOSD HealthcareNitrite, UANegative Negative - PositiveNOMS HealthcarepH, UA6.05 - 9NOSD HealthcareProtein, UA NegativeNegative - 2000(20) ++++ mg/dLNOSD HealthcareSpec Grav, UA1.0201 - 1.03 NOMS HealthcareUrobilinogen, UA1.00.2 - 12 mg/dLNOSD HealthcareNOSD Healthcare AFP, SERUM, OPEN SPINA BIFIDAon 07-57-1959BGW MOM0.82.[facility] HealthcareAFP VALUE 45.0 ng/mL.[facility] HealthcareCOMMENT:Comment.[facility] HealthcareComment on above:Jeny Avila, Ph.D., [facility] Director References: Available Upon Request. Multiples Of Median Cutoffs For AFP Elevations Payan 2.5 Black 2.8 IDD 2.0 Twins 4.5 Abbreviation Definitions IDD - Insulin Dep Diabetes OSBR - Open Spina Bifida Risk For further inquiries contact [facility] at [phone]. This test was developed and its performance characteristics determined by [facility]. It has not been cleared or approved by the Food and Drug Administration. Performed at: [facility] [address] [place] [address], [place] [id number] [place]ola Melter: Abdulaziz Aquino Formerly [facility], Phone: [phone] GEST. AGE ON COLLECTION DATE20.7. weeksNOSD HealthcareGESTAT. AGE BASED ONLMP. NOMS HealthcareComment on above:Recalculations are not recommended when gestational dating by LMP and ultrasound are within 10 days. INSULIN DEP DIABETESNo.[facility] HealthcareINTERPRETATIONComment.[facility] Healthcare Comment on above:Interpretation: Screen Negative [...] Customer Services to discuss available options. The [employer] recommends amniocentesis be offered to women age 35 and older. MATERNAL AGE AT EDD31.8. yrNOSD HealthcareMULTIPLE GESTATIONNo.[facility] OSBR RISK 1 UE16001.NOMS HealthcareRACECaucasian.N[facility]S HealthcareRESULTSReport. NOMS HealthcareTEST RESULTS:Negative.NOMS UddvzdftwtENZDNA731. lbsNOSD HealthcarePREGNANCY N N LMP [id number] 2 16 N 1 Y 183 N N N N N White/ CLINISYNCNOSD HealthcareNo Panel InformationOrdered By: Radiologist Radiology on 66-41-6336UCGD Healthcare Work Phone: No Panel Informationon 57-35-9948Qnpmxvjws Study observation (narrative)NOMS HealthcareUS OB ANATOMYon 27-51-1506Ygm[address] [address] Ultrasound Report Signed Patient: PRINCESS GUERRERO MR#: [id number] : 1995 Acct:[id number] Age/Sex: 29 / F ADM Date: 04/03/25 Loc: US Attending Dr: Wilils Chen D.O. Ordering Physician: Willis Chen D.O. Date of Service: 04/03/25 Procedure(s): US OB anatomy Accession Number(s): [id number] cc: Willis Chen D.O.; KOFFI URIARTE M.D. [place] [address] Patient Name: PRINCESS UGERRERO MRN: [id number] date: 1995 Sex: F Assigned Patient Location: US Current Patient Location: Accession/Order Number: [id number] Exam Date: 04/03/2025 18:53 Report Date: 04/04/2025 [...] all 4 extremities were surveyed by the building construction foreman and no abnormalities were reported. The stomach, [...] Pisano M.D. 04/04/2025 9:12 AM Dictation Location: [place] [address] Electronically authenticated by: [id number] Y Date: 04/04/2025 09:12 Dictated By: Cyndi Pisano M.D. Signed By: 04/04/25913 DD/ 1 TD/TT: Health Screener:TBHRadiology, Radiologist, - 04/04/2025 [place] [address] Ultrasound Report Signed Patient: PRINCESS GUERRERO MR#: [id number] : 1995 Acct:[id number] Age/Sex: 29 / F ADM Date: 04/03/25 Loc: US Attending Dr: Willis Chen D.O. Ordering Physician: Willis Chen D.O. Date of Service: 04/03/25 Procedure(s): US OB anatomy Accession Number(s): [id number] cc: Willis Chen D.O.; KOFFI URIARTE M.D. The [address] [id number] Patient Name: PRINCESS GUERRERO MRN: [facility]:[id number] date: 1995 Sex: F Assigned Patient Location: US Current Patient Location: Accession/Order Number: [id number] Exam Date: 04/03/2025 18:53 Report Date: 04/04/2025 [...] all 4 extremities were surveyed by the building construction foreman and no abnormalities were reported. The stomach, [...] Pisano M.D. 04/04/2025 9:12 AM Dictation Location: [place] [address] Electronically authenticated by: [id number] Y Date: 04/04/2025 09:12 Dictated By: Cyndi Pisano M.D. Signed By: 04/04/25913 DD/ 1 TD/TT: Health Screener: JOSY Lopez OB CERVICAL LENGTHon 31-61-4989[place]wu[place] [address] Ultrasound Report Signed Patient: PRINCESS GUERRERO MR#: [id number] : 1995 Acct:[id number] Age/Sex: 29 / F ADM Date: 04/03/25 Loc: US Attending Dr: Willis Chen D.O. Ordering Physician: Willis Chen D.O. Date of Service: 04/03/25 Procedure(s): US OB cervical length Accession Number(s): [id number] cc: Willis Chen D.O.; KOFFI URIARTE M.D. The [place] [address] Patient Name: PRINCESS GUERRERO MRN: [facility]:[id number] date: 1995 Sex: F Assigned Patient Location: Current Patient Location: Accession/Order Number: [id number] Exam Date: 04/03/2025 18:53 Report Date: 04/04/2025 [...] all 4 extremities were surveyed by the building construction foreman and no abnormalities were reported. The stomach, [...] Pisano M.D. 04/04/2025 9:12 AM [facility]ictation [facility] Electron[facility] authenticated by: [id number] Y Date: 04/04/2025 09:12 Dictated By: Cyndi Pisano M.D. Signed By: 04/04/2514 DD/ 1 TD/TT: Health Screener:TBHRadiology, Radiologist, - 04/04/2025 [place] [address] Ultrasound Report Signed Patient: PRINCESS GUERRERO MR#: [id number] : 1995 Acct:[id number] Age/Sex: 29 / F ADM Date: 04/03/25 Loc: US Attending Dr: Willis Chen D.O. Ordering Physician: Willis Chen D.O. Date of Service: 04/03/25 Procedure(s): US OB cervical length Accession Number(s): [id number] cc: Willis Chen D.O.; KOFFI URIARTE M.D. The [place] [id number] Patient Name: PRINCESS GUERRERO MRN: [id number] date: 1995 Sex: F Assigned Patient Location: US Current Patient Location: Accession/Order Number: [id number] Exam Date: 04/03/2025 18:53 Report Date: 04/04/2025 [...] all 4 extremities were surveyed by the building construction foreman and no abnormalities were reported. The stomach, [...] Pisano M.D. 04/04/2025 9:12 AM Dictation Location: [facility] Electronically authenticated by: [id number] Y Date: 04/04/2025 09:12 Dictated By: Cyndi Pisano M.D. Signed By: 04/04/25913 DD/ 1 TD/TT: Health Screener: JOSY EscobarUrinalysis macro (dipstick) panel (U)on 83-63-7750Yqmyiazpg, UA NegativeNegative - 4(70) +++ mg/dLNOMS HealthcareBlood, [...] mg/dLNOMS HealthcareNOMS HealthcareUS OB LIMITED 1+ FETUSESon 42-79-9110QN OB LIMITED 1+ FETUSESFINDINGS: Cephalic presentation. Posterior placenta. heart rate 156. No evidence of significant amniotic band or subchronic hemorrhage. IMPRESSION: Normal viable fetus, no gestational sac abnormality TRANSCRIBED BY: ELECTRONICALLY SIGNED BY: Shelia ArellanoNot AvailableIGP,APTIMA HPV,AGE GDLNon [id number] GDLN ACOG TESTINGNote.[facility] HealthcareComment on above:TESTS RESULT FLAG UNITS REF RANGE LAB Clinician Provided Cytology Information Source.............Endocervix No. of containers..01 ThinPrep Vial Age Algo ACOG Evie... FLAG LEGEND: L-Low Normal,H-High Normal,LL-Alert Low,HH-Alert High <-Panic Low,>-Panic High,A-Abnormal,AA-Critical Abnormal Performed at: 01 =G [address] [address] Karena Lester MD, HPV APTIMANegativeNegativeNOMS HealthcareComment on above:This nucleic acid amplification test detects fourteen high- risk HPV types (16,18,31,33,35,39,45,51,52,56,58,59,66,68) without differentiation. Performed at: =[address] [id number] [place]: Karena Lester MD, Phone: [phone] Performed at: [address] [id number] [place]: Karena Lester MD, Phone: [phone] IGP, APTIMA HPV, RFX 16/18,45Note.NOMS HealthcareComment on above:TESTS RESULT FLAG UNITS REF RANGE LAB DIAGNOSIS: 02 NEGATIVE FOR INTRAEPITHELIAL LESION OR MALIGNANCY. Specimen adequacy: 02 Satisfactory for evaluation. No endocervical component is identified. Performed by: 02 Calvin Dallas Final Finisher ([facility]) . 02 Note: Note [...] High,A-Abnormal,AA-Critical Abnormal Performed at: 02 [address] [facility] [address] [place] [address] Karena Lester MD, SPATULA-ALONE ENDOCERVIX CLINISYNCNOMS HealthcareRECURRENT VAGINITIS (HTRX)on 06-51-3932PSNLHRUGL VAGINAE 0NOMS HealthcareATOPOBIUM VAGINAENot detectedNOMS HealthcareBVAB 2,3 (BACTERIAL VAGINOSIS ASSOCIATED BACTERIA 2, 3); MOBILUNCUS KIP3CPJP HealthcareBVAB 2,3 (BACTERIAL VAGINOSIS ASSOCIATED BACTERIA 2, 3); MOBILUNCUS SPPNot detectedNOMS HealthcareCANDIDA ALBICANS, PARAPSILOSIS, [id number] HealthcareCANDIDA ALBICANS, PARAPSILOSIS, TROPICALISNot detectedNOMS HealthcareCANDIDA GLABRATA0 NOMS HealthcareCANDIDA GLABRATANot detectedNOMS HealthcareCANDIDA [id number] HealthcareCANDIDA KRUSEINot detectedNOMS HealthcareCHLAMYDIA [id number] HealthcareCHLAMYDIA TRACHOMATISNot detectedNOMS HealthcareGARDNERELLA VAGINALIS0 NOMS HealthcareGARDNERELLA VAGINALISNot detectedNOMS HealthcareMEGASPHAERA (TYPES 1, 2)0NOMS HealthcareMEGASPHAERA (TYPES 1, 2)Not detectedNOMS Healthcare MYCOPLASMA [id number] HealthcareMYCOPLASMA GENITALIUMNot detectedNOMS HealthcareNEISSERIA QZAYHHHPIUX1WYAM HealthcareNEISSERIA GONORRHOEAENot detected NOMS HealthcareTRICHOMONAS [id number] HealthcareTRICHOMONAS VAGINALISNot detectedNOMS HealthcareNOMS HealthcareUrinalysis macro (dipstick) panel (U)on 92-61-7916Ntcvkfubi, UANegativeNegative - 4(70) +++ mg/dLNOSD HealthcareBlood, UAPositiveNegative - 50 Jae/mcLNOSD HealthcareClarity, UAClearNOMS Healthcare Color, UAYellowNOMS HealthcareGlucose, UANegativeNegative - 2000(110) ++++ mg/dL [facility] HealthcareInterpretation and review of laboratory resultsAbnormalNOSD HealthcareKetones, UANegativeNegative - 160(16) ++++ mg/dLNOSD Healthcare Leukocytes, UANegativeNegative - 500+++ Marsha/mcLNOSD HealthcareNitrite, UA NegativeNegative - PositiveNOMS HealthcarepH, UA65 - 9NOMS HealthcareProtein, UA NegativeNegative - 2000(20) ++++ mg/dLNOSD HealthcareSpec Grav, UA1.021 - 1.03 NOMS HealthcareUrobilinogen, UA1.00.2 - 12 mg/dLNOMS HealthcareNOMS HealthcareUS OB < 14 WEEKS EARLYon 73-07-4301BR OB < 14 WEEKS EARLYFINDINGS: Single viable [...] period was 11/13/2024.Urinalysis macro (dipstick) panel (U)on 39-15-6802Poxanvntg, UANegativeNegative - 4(70) +++ mg/dLNOSD Healthcare Blood, UANegativeNegative - 50 Jae/mcLDEL[facility] HealthcareClarity, UAClearNOMS HealthcareColor, UAYellowNOSD HealthcareGlucose, UANegativeNegative - 2000(110) ++++ mg/dLNOSD HealthcareInterpretation and review of laboratory resultsNormal NOMS HealthcareKetones, UAPositiveNegative - 160(16) ++++ mg/dLDEL[facility] Healthcare Leukocytes, UANegativeNegative - 500+++ Marsha/[facility] HealthcareNitrite, UA NegativeNegative - PositiveNOSD HealthcarepH, UA55 - 9NOMS HealthcareProtein, UA TraceNegative - 2000(20) ++++ mg/dLNOSD HealthcareSpec Grav, UA1.031 - 1.03NOSD HealthcareUrobilinogen, UA1.00.2 - 12 mg/dLNOMS [facility] HospitalNOMS HealthcareBOX TESTon 55-49-1686XHF TEST SENT OUTYESDELTA COMMUNITY [facility]ICAL [facility]ENTER UhlaxucujwNEE6GEWGPLVGI HealthcareBOX2 01/22/25NOSD HealthcareCLINISYNCNOMS HealthcareUS Pelvis transvaginalon 01-14-2025 EXAM: US [...] II, MD, PHD at 14-Jan-2025 10:04:37 PM [facility] IMAGINGSluss, MD Rosenda - 01/14/2025 EXAM: [...] II, MD, PHD at 14-Jan-2025 10:04:37 PM [place] [employer] NOMS HealthcareUS Pelvis transvaginalOrdered By: Rosenda Torres on 51-94-2901XGKE Healthcare Work Phone: HCG ( test) Ql (U)on 65-66-6689Nclusenlulszzf and review of laboratory resultsAbnormalNOSD HealthcarePreg Test, UrPositive NegativeNONorth Kansas City HospitalNOSD HealthcareUS OB TRANSVAGINALon 30-03-8999DH OB TRANSVAGINALEXAM: US OB TRANSVAGINAL HISTORY: Dating. [...] II, MD, PHD at 14-Jan-2025 10:04:37 PM [place] TeleradiologyNormalNot AvailableComment on above:Order Comment: US OB TRANSVAGINAL No LMP recorded.US Pelvis transvaginalon 81-57-7550Oxynaelxo Study observation (narrative)NOMS HealthcareUrinalysis macro (dipstick) panel (U)on 01-12-2025 Bilirubin, UANegativeNegative - 4(70) +++ mg/dLNOMS HealthcareBlood, UANegative Negative - 50 Jae/mcLNOMS HealthcareClarity, UAClearNOMS HealthcareColor, UA YellowNOMS HealthcareGlucose, UANegativeNegative - 2000(110) ++++ mg/dLNOMS HealthcareInterpretation and review of laboratory resultsAbAscension Providence Hospital Ketones, UANegativeNegative - 160(16) ++++ mg/dLNOMS HealthcareLeukocytes, UA TraceNegative - 500+++ Marsha/mcLNOMS HealthcareNitrite, UANegativeNegative - PositiveNOMS HealthcarepH, UA75 - 9NOMS HealthcareProtein, UANegativeNegative - 2000(20) ++++ mg/dLNOMS HealthcareSpec Grav, UA1.021 - 1.03NOMS Healthcare Urobilinogen, UA0.20.2 - 12 mg/dLNOMS HealthcareNOMS Pvpgekzali24-qtqgfjuqqjldom D3 [Mass/Vol]on [id number]-wrbmizaxihddwb D [Mass/Vol]26 ng/mLLow30 - 100 ng/mLClinton Memorial HospitalComment on above:Vitamin D Status 25-OH Vitamin D: Deficiency: <20 ng/mL Insufficiency: 20 - 29 ng/mL Optimal: > or = 30 ng/mL For 25-OH Vitamin D testing on patients on D2-supplementation and patients for whom quantitation of D2 and D3 fractions is required, the QuestAssureD(TM) 25-OH VIT D, (D2,D3), LC/MS/MS is recommended: order code 57754 (patients >2yrs). See Note 1 Note 1 For additional information, please refer to http://education.[employer].Compumatrix/faq/IHL112 (This link is being provided for informational/ educational purposes only.) Interpretation and review of laboratory resultsAbEast Liverpool City Hospital (H/H, RBC, INDICES, WBC, PLT)on 12-32-8619Lddzdhzcrpe distribution width (RBC) [Ratio]12.3 %Nayxuc14.0-15.0Quest DiagnosticsComment on above: Performed By: #### 7600, 84282, 21506, 927, 175, #### [facility] [place] [address] Flight Instructor: Brandon Camara MDHematocrit (Bld) [Volume fraction]38.8 %Normal 35.0-45.0Quest DiagnosticsComment on above:Performed By: #### 7600, 58300, 18574, 927, 175, #### [facility] [place] [address] Flight Instructor: Brandon Camara MDHemoglobin (Bld) [Mass/Vol]12.7 g/dLNormal 11.7-15.5Quest DiagnosticsComment on above:Performed By: #### 7600, 04226, 24741, 927, 1758, #### [facility] [place] [address] Flight Instructor: Brandon Camara MDMCH (RBC) [Entitic mass]28.4 huRhnlse20.0-33.0 Quest DiagnosticsComment on above:Performed By: #### 7600, 61257, 73130, 927, 175, #### [facility] [place] [address] Flight Instructor: Brandon DOTYCHC (RBC) [Mass/Vol]32.7 g/dXFayfem91.0-36.0 Quest DiagnosticsComment on above:Result Comment: For adults, a slight decrease in the calculated MCHC value (in the range of 30 to 32 g/dL) is most likely not clinically significant; however, it should be interpreted with caution in correlation with other red cell parameters and the patient's clinical condition.Performed By: #### 7600, 89358, 16576, 927, 1759, 40822 #### [facility] of [place] [address], [address] [place] [phone] Flight Instructor: Brandon Camara MDMCV (RBC) [Entitic vol]86.8 wPZytouu40.0-100.0 Quest DiagnosticsComment on above:Performed By: #### 7600, 13015, 44499, 927, 1759, 59688 #### [facility] [place] [address], [address] [place] [phone] Flight Instructor: Brandon Camara MDPlatelet mean volume (Bld) [Entitic vol]9.0 fL Normal7.5-12.5Quest DiagnosticsComment on above:Performed By: #### 7600, 26791, 61777, 927, 175, #### [facility] [place] [address] [place], [place] [phone] Flight Instructor: Brandon Camara MDPlatelets (Bld) [#/Vol]260 10*3/uLNormal 140-400Quest DiagnosticsComment on above:Performed By: #### 7600, 07160, 55542, 927, 1759, 63322 #### [facility] [place] [address], [address] [place], [place] [phone] Flight Instructor: Brandon Camara MDRBC (Bld) [#/Vol]4.47 10*6/uLNormal3.80-5.10 Quest DiagnosticsComment on above:Performed By: #### 7600, 42711, 38875, 927, 1759, 53754 #### [facility] [place] [address], [address] [place] [phone] Flight Instructor: Brandon Camara MDWBC (Bld) [#/Vol]5.5 10*3/uLNormal3.8-10.8 Quest DiagnosticsComment on above:Performed By: #### 7600, 04189, 15618, 927, 1759, 14542 #### [facility] [place] [address], [address] [place] [address] Flight Instructor: Brandon Camara MDCBC panel Auto (Bld)on 27-88-3271Lzwcgvjarxi distribution width (RBC) [Ratio]12.3 %11.0 - 15.0 %[facility]inton Memorial HospitalHematocrit (Bld) [Volume fraction]38.8 %35.0 - 45.0 %[facility] Memorial HospitalHemoglobin (Bld) [Mass/Vol]12.7 g/dL11.7 - 15.5 g/dL [facility] (RBC) [Entitic mass]28.4 pg27.0 - 33.0 pg White HospitalHC (RBC) [Mass/Vol]32.7 g/dL32.0 - 36.0 g/dL Clinton Memorial HospitalComment on above:For adults, a slight decrease in the calculated MCHC value (in the range of 30 to 32 g/dL) is most likely not clinically significant; however, it should be interpreted with caution in correlation with other red cell parameters and the patient's clinical condition. MCV (RBC) [Entitic vol]86.8 fL80.0 - 100.0 [place] Platelet mean volume (Bld) [Entitic vol]9 fL7.5 - 12.5 CentervillePlatelets (Bld) [#/Vol]260 10*3/[facility]stownRBC (Bld) [#/Vol]4.47 10*6/[facility] YoungstownWBC (Bld) [#/Vol]5.5 10*3/[facility] YoungstownCOMPREHENSIVE METABOLIC PANEL W/ANION GAPon 66-91-4569Hkdmlrc [Mass/Vol]4.8 g/dLNormal3.6-5.1Quest DiagnosticsComment on above:Performed By: #### 2153, 92027, 61823, 760, 1752, 86510 #### [facility] [address], [address] [place] [address] Flight Instructor: Brandon Camara MDALP [Catalytic activity/Vol]60 U/IOghmpv83-391 Quest DiagnosticsComment on above:Performed By: #### 7600, 16495, 85642, 927, 175, #### [facility] of [address], [address] [place] [address] Flight Instructor: Brandon Camara MDALT [Catalytic activity/Vol]14 U/LNormal6-29 Quest DiagnosticsComment on above:Performed By: #### 7600, 75651, 83078, 92, 1758, #### [facility] of [address], [address] [place] [address] Flight Instructor: Brandon Camara MDAST [Catalytic activity/Vol]12 U/GGbsnkn31-33 Quest DiagnosticsComment on above:Performed By: #### 7600, 16974, 39490, 92, 1758, #### [facility] of [address], [address] [place] [address] Flight Instructor: Brandon Camara MDBilirubin [Mass/Vol]0.4 mg/dLNormal0.2-1.2 Quest DiagnosticsComment on above:Performed By: #### 7600, 04565, 44827, 92, 1758, #### [facility] [place] [address] Flight Instructor: Brandon Camara MDCalcium [Mass/Vol]9.6 mg/dLNormal8.6-10.2Quest DiagnosticsComment on above:Performed By: #### 7600, 38934, 90797, 92, 1758, #### [facility] of [address], [address] [place] [address] Flight Instructor: Brandon Camara MDChloride [Moles/Vol]102 mmol/OCcimco05-448 Quest DiagnosticsComment on above:Performed By: #### 7600, 14133, 21343, 92, 175, #### [facility] [place] [address] Flight Instructor: Brandon Merati MDCO2 [Moles/Vol]28 mmol/LBgkgix04-22Jqner DiagnosticsComment on above:Performed By: #### 7600, 22040, 03028, 927, 175, #### [facility] [place] [address] Flight Instructor: Brandon MOREIRAreatinine [Mass/Vol]0.86 mg/dLNormal0.50-0.97 Quest DiagnosticsComment on above:Performed By: #### 7600, 22222, 78945, 92, 175, #### [facility] [place] [address] Flight Instructor: Brandon Camara MDELECTROLYTE BALANCE7 mmol/L (calc)Normal7-17 Quest DiagnosticsComment on above:Performed By: #### 7600, 86839, 25906, 92, 1758, #### [facility] [place] [address] Flight Instructor: Brandon Camara MDGFR/1.73 sq M.predicted among non-blacks MDRD (S/P/Bld) [Vol rate/Area]93 mL/min/{1.73_m2}Normal> OR = 60[facility] Comment on above:Performed By: #### 7600, 52832, 77744, 92, 1758, #### [facility] [place] [address] Flight Instructor: Brandon Camara MDGlucose [Mass/Vol]90 mg/oKTgapvl80-88Jumrz DiagnosticsComment on above:Result Comment: Fasting reference intervalPerformed By: #### 7600, 63007, 46406, 927, 175, 20110 #### [facility] [place] [address] Flight Instructor: Brandon Camara MDPotassium [Moles/Vol]4.5 mmol/LNormal3.5-5.3 Quest DiagnosticsComment on above:Performed By: #### 7600, 24974, 69698, 927, 1759, 33996 #### [facility] [place] [address] Flight Instructor: Brandon Camara MDProtein [Mass/Vol]7.4 g/dLNormal6.1-8.1Quest DiagnosticsComment on above:Performed By: #### 7600, 83974, 04124, 927, 1759, 17201 #### [facility] [address], [address] [place] [address] Flight Instructor: Brandon Camara MDSodium [Moles/Vol]137 mmol/REnciky361-465Hthah DiagnosticsComment on above:Performed By: #### 7600, 28504, 70164, 927, 1759, 68020 #### [facility] of [address], [address] [place] [address] Flight Instructor: Brandon Camara MDUrea nitrogen [Mass/Vol]7 mg/dLNormal7-25Quest DiagnosticsComment on above:Performed By: #### 7600, 35830, 50163, 927, 1759, 33458 #### [facility] [place] [address] Flight Instructor: Brandon Camara MDComprehensive metabolic 2000 panelon 49-83-4586Uhkyehe [Mass/Vol]4.8 g/dL3.6 - 5.1 g/dLUnCleveland Clinic Avon HospitalALP [Catalytic activity/Vol]60 U/L31 - 125 U/[facility] OhioALT [Catalytic activity/Vol]14 U/L6 - 29 U/[facility] OhioAnion gap [Moles/Vol]7 mmol/[facility] OhioAST [Catalytic activity/Vol]12 U/L10 - 30 U/[facility] Bilirubin [Mass/Vol]0.4 mg/dL0.2 - 1.2 mg/dLUnCleveland Clinic Avon Hospital Calcium [Mass/Vol]9.6 mg/dL8.6 - 10.2 mg/dLUnCleveland Clinic Avon Hospital Chloride [Moles/Vol]102 mmol/L98 - 110 mmol/[facility] CO2 [Moles/Vol]28 mmol/L20 - 32 mmol/[facility] Creatinine [Mass/Vol]0.86 mg/dL0.50 - 0.97 mg/dLUnCleveland Clinic Avon HospitalGFR/1.73 sq M.predicted among non-blacks MDRD (S/P/Bld) [Vol rate/Area] 93 mL/min/{1.73_m2}> OR = 60 mL/min/1.80k5OmbfhdavzmCleveland Clinic Avon Hospital Glucose [Mass/Vol]90 mg/dL65 - 99 mg/dLUnCleveland Clinic Avon HospitalComment on above: Fasting reference interval Potassium [Moles/Vol]4.5 mmol/L3.5 - 5.3 mmol/[facility] Protein [Mass/Vol]7.4 g/dL6.1 - 8.1 g/dLUnCleveland Clinic Avon HospitalSodium [Moles/Vol]137 mmol/L135 - 146 mmol/[facility] OhioUrea nitrogen [Mass/Vol]7 mg/dL7 - 25 mg/dLUnCleveland Clinic Avon HospitalLIPID PANEL, STANDARDon 18-42-5143Rqealktkdxw [Mass/Vol]167 mg/dLNormal<200Quest DiagnosticsComment on above:Order Comment: FASTING:YES FASTING: YESPerformed By: #### 7600, 70135, 35657, 927, 1759, 92287 #### [facility] [address], [address] [place] [address] Flight Instructor: Brandon Camara MDCholesterol in HDL [Mass/Vol]52 mg/dLNormal> OR = 50Quest DiagnosticsComment on above:Order Comment: FASTING:YES FASTING: YESPerformed By: #### 7600, 51146, 43239, 927, 1759, 66963 #### [facility] [address] , [address] [place] [address] Flight Instructor: Brandon Camara MDCholesterol in LDL [Mass/Vol]95 mg/dLNormal [...] LDL-C. Tres SS et al. STEPHANIE. 2013;310(19): 1514-2984 (http://education.[employer]/faq/PFX789)Performed By: #### 7600, 75419, 32095, 927, 1759, 51951 #### [facility] [address], [address] [place] [address] Flight Instructor: Brandon MOREIRAholesterojohn.total/Cholesterol in HDL [Mass ratio]3.2 {ratio}Normal<5.0Quest DiagnosticsComment on above:Order Comment: FASTING:YES FASTING: YESPerformed By: #### 7600, 99746, 94438, 927, 1759, 94583 #### [facility] [address], [address] [place], [place] [phone] Flight Instructor: Brandon NICOLE HDL PVGHFRNANTS674 mg/dL (calc)Normal<130 Quest DiagnosticsComment on above:Order Comment: FASTING:YES FASTING: YESResult Comment: For patients with diabetes plus 1 major ASCVD risk factor, treating to a non-HDL-C goal of <100 mg/dL (LDL-C of <70 mg/dL) is considered a therapeutic option.Performed By: #### 7600, 43685, 47777, 927, 1759, 08472 #### [facility] [address], [address] [place], [place] [address] Flight Instructor: Brandon Camara MDTriglyceride [Mass/Vol]103 mg/dLNormal<150 Quest DiagnosticsComment on above:Order Comment: FASTING:YES FASTING: YESPerformed By: #### 7600, 19060, 33709, 927, 1752, 78659 #### [facility] [address], [address] [place] [address] Flight Instructor: Brandon Camara MDLipid 1996 panelon 38-21-5282Ebpvywnuoec [Mass/Vol]167 mg/dLNINF - 200 mg/dLUnCleveland Clinic Avon HospitalCholesterol in HDL [Mass/Vol]52 mg/dL> OR = 50UnCleveland Clinic Avon HospitalCholesterol in LDL [Mass/Vol]95 mg/dLmg/dL (calc)[facility] HospitalComment on above:Reference range: <100 Desirable range <100 mg/dL for primary prevention; <70 mg/dL for patients with CHD or diabetic patients with > or = 2 CHD risk factors. LDL-C is now calculated using the Dean calculation, which is a validated novel method providing better accuracy than the Friedewald equation in the estimation of LDL-C. Tres SS et al. STEPHANIE. 2013;310(19): 3010-8299 (http://education.[employer]/faq/BEC560) Cholesterol non HDL [Mass/Vol]115 mg/dLNINFClinton Memorial Hospital Comment on above:For patients with diabetes plus 1 major ASCVD risk factor, treating to a non-HDL-C goal of <100 mg/dL (LDL-C of <70 mg/dL) is considered a therapeutic option. Cholesterol.total/Cholesterol in HDL [Mass ratio]3.2 {ratio}NINLutheran HospitalTriglyceride [Mass/Vol]103 mg/dLNINF - 150 mg/dLUnCleveland Clinic Avon HospitalNo Panel Informationon 37-36-3349SWRDKGK:YES FASTING: YESQUEST DIAGNOSTICS-NOCONAUnCleveland Clinic Avon HospitalTSH W/REFLEX TO FT4on 44-47-7627EIZ W/REFLEX TO FT42.63 mIU/LNormal[facility] Comment on above:Result Comment: Reference Range > or = 20 Years 0.40-4.50 Ranges First trimester 0.26-2.66 Second trimester 0.55-2.73 Third trimester 0.43-2.91Performed By: #### 1660, 83822, 43899, 927, 1758, 86042 #### [facility] [address], [address] [place] [phone] Flight Instructor: Brandon Camara MDPROVIDENCE CENTRALIA H[facility] with reflex to Free T4 if abnormalon 44-14-6628QSX Qn2.63 m[IU]/LmIU/[facility] OhioComment on above:Reference Range > or = 20 Years 0.40-4.50 Ranges First trimester 0.26-2.66 Second trimester 0.55-2.73 Third trimester 0.43-2.91 VITAMIN B12on 86-34-6126Ssregodia (Vitamin B12) [Mass/Vol]402 pg/mLNormal 200-1100Quest DiagnosticsComment on above:Performed By: #### 7600, 18001, 48525, 150, 4462, 30219 #### [facility] [address], [address] [place] [address] Flight Instructor: Brandon Camara MDVITAMIN D,25-OH,TOTAL,IAon 80-46-5152OCBLPDP D,25-OH,TOTAL,IA26 ng/jOKuy80-325Idwjm DiagnosticsComment on above:Result Comment: Vitamin D Status 25-OH Vitamin D: Deficiency: <20 ng/mL Insufficiency: 20 - 29 ng/mL Optimal: > or = 30 ng/mL For 25-OH Vitamin D testing on patients on D2-supplementation and patients for whom quantitation of D2 and D3 fractions is required, the QuestAssureD(TM) 25-OH VIT D, (D2,D3), LC/MS/MS is recommended: order code 14356 (patients >2yrs). See Note 1 Note 1 For additional information, please refer to http://education.[employer].Compumatrix/faq/ZBH441 (This link is being provided for informational/ educational purposes only.)Performed By: #### 7600, 30245, 87030, 929, 8526, 97583 #### [facility] [address], [address] [place] [phone] Flight Instructor: Brandon Camara MDVitamin B12on 43-43-5608Ngpakcvcs (Vitamin B12) [Mass/Vol]402 pg/mL200 - 1100 pg/mLUnCleveland Clinic Avon Hospital Quantiferon-TB Plus (Client Incubated)on 65-43-6572Ozdei interferon background IA Qn (Bld)0.01 International_Unit/mLInvalid Interpretation [facility] HospitalComment on above:Performed By: #### [id number] #### [facility] [address] [place] [address]. tuberculosis stim IFN-g by CD4+ CD8+ T-cells corrected for background Qn (Bld)0.02 International_Unit/mLInvalid Interpretation CodeUniversity Hospitals Elyria Medical CenterComment on above:Performed By: #### [id number] #### [facility] [address] [place] [address]. tuberculosis stim IFN-g by CD4+ T-cells corrected for background Qn (Bld)0.03 International_Unit/mLInvalid Interpretation [facility] HospitalComment on above:Performed By: #### [id number] #### [facility] [address] [place] [address]. tuberculosis stim IFN-g Ql (Bld) [Interp]NegativeInvalid Interpretation CodeNegativeUniversity Hospitals Elyria Medical CenterComment on above:Result Comment: No response to M [...] interferon gamma. Chemiluminescence immunoassay methodology Performed at: [facility] [address] [place] [id number] PhD Leeanne GarciaPerformed By: #### [id number] #### [facility] [address] [place], [place] [address]Mitogen stimulated gamma interferon corrected for background Qn (Bld)>10.00Invalid Interpretation [facility] HospitalComment on above:Performed By: #### [id number] #### [facility] [address] [place] [address]Qnepxwr comment (Unsp spec) [Interp]CommentInvalid Interpretation [facility] HospitalComment on above:Result Comment: QuantiFERON-TB Gold Plus [...] a control for the test.Performed By: #### [id number] #### [facility] [address] [place] [address]Vmj Bs Abon 48-19-2379NPU surface Ab Ql (S)ReactiveInvalid Interpretation [facility] HospitalComment on above:Result Comment: Non Reactive: Not immune to HBV infection. Equivocal: Unable to determine if anti-HBs is present at levels consistent with immunity. Reactive: Anti-HBs concentration detected at greater than 10 mIU/mL. Individual is considered to be immune to infection with HBV. Performed at: [address] [id number] PhD Leeanne Moyaformed By: #### [id number] #### [facility] [address] [place] [address]Spfremp/Mumps/Rubella Immunityon 73-88-1909UdV IgG IA Qn (S) 206.0 A unit/mLInvalid Interpretation CodeImmune >16.4[facility] Maryland Medical CenterComment on above:Result Comment: Negative <13.5 Equivocal 13.5 - 16.4 Positive >16.4 Presence of antibodies to Rubeola is presumptive evidence of immunity except when acute infection is suspected.Performed By: #### [id number] #### Jacques [facility] [address] [place] [address] 46025BzR IgG IA Qn (S)38.5 A unit/mLInvalid Interpretation Code Immune >10.9[facility]lyria Medical CenterComment on above:Result Comment: Negative <9.0 Equivocal 9.0 - 10.9 Positive >10.9 A positive result generally indicates past exposure to Mumps virus or previous vaccination. Performed at: [facility] [address] [place], [place] [id number] PhD Leeanne GarciaPerformed By: #### [id number] #### Jacques [facility] [address] [place] [address] 02097Yjckkdm virus IgG Qn (S)1.07 [IU]/mLInvalid Interpretation Code Immune >0.99[facility] Medical CenterComment on above:Result Comment: Non- immune <0.90 Equivocal 0.90 - 0.99 Immune >0.99Performed By: #### [id number] #### Jacques [facility] [address] [place] [address] 97100Cjnlp IgGon 12-42-5132OVF IgG IA Qn (S)1518Invalid Interpretation CodeImmune >165[facility] Medical CenterComment on above:Result Comment: Negative <135 Equivocal 135 - 165 Positive >165 A positive result generally indicates exposure to the pathogen or administration of specific immunoglobulins, but it is not indication of active infection or stage of disease. Performed at: [facility] [address] [place], [place] [id number] PhD Leeanne GarciaPerformed By: #### [id number] #### Jacques [facility] [address] [place] [address] 44312Hduyvln Formson 41-25-0846Klruaqy Forms [id number]#1.00OTGTIFFWright-Patterson Medical CenterED Clinical Summaryon 25-21-5784ML [facility] [address] [place], [place] [id number] Clinical Summary PERSON INFORMATION Name: PRINCESS GUERRERO Age: 28 Years Sex: FEMALE : 1995 MRN: Acct#: Visit Reason: Medical screening exam; OTTERBEIN PHYSICAL Arrival: 12/15/2023 11:27:18 Discharge: 12/15/2023 11:57:00 LOS: 000 00:30 Check In: 12/15/2023 11:27:18 Checkout: 12/15/2023 11:57:00 Address: [address] [place], [place] [id number] PCP: Provider, None PROVIDER INFORMATION Provider Role Assigned Unassigned TARAS FAUSTNI ED PA 12/15/2023 11:30:13 Rosa England MA [...] blood pressure. With: Address: When: None Provider [address] [place] [address] DIAGNOSIS: Elevated blood pressure reading; Physical exam Patient Understands: Yes - Patient/family/caregiver verbalizes understanding of instructions given Comment:[facility] CenterED Patient Summary 79-02-5910UR Patient Summary [facility] ? Urgent Care [address] [place] [address] PATIENT DISCHARGE INSTRUCTIONS Patient Information Name: PRINCESS [...] blood pressure. With: Address: When: None Provider [address] [place] [address] Hypertension, Adult High blood pressure (hypertension) is [...] as fish, chicken wit (more content not included)...[facility] CenterUrgent Care Note- Provideron 94-80-7608Ssmnml Care Note- ProviderPatient: PRINCESS GUERRERO Age: 28 [...] - pharynx pink and moist. NECK: -Supple (aefy-la-nyxxm): non-tender. CARD: -Rate and rhythm: Regular RESP: [...] Plan Assessment and Plan: Diagnosis: Physical exam (JPT43-XU Z00.00), Elevated blood pressure reading (UGU63-EL R03.0). Cleared for employment [Electronically Signed on: 12/15/2023 11:52 EDT] TARAS FAUSTIN [Verified on: 12/15/2023 11:52 EDT] TARAS FAUSTIN [facility] 66-57-2681[facility]pv[facility] ? [facility] Care [address] [place], [place] [id number] PATIENT DISCHARGE INSTRUCTIONS Patient Information Name: PRINCESS [...] blood pressure. With: Address: When: None Provider [address] [place] [address] Medication Information: The exam and treatment you received today in the [facility] were for an urgent problem and are not intended as complete care. It is important for you to follow up with a doctor, nurse practitioner, or physician?s pharmacy sales assistant for ongoing care. If your symptoms [...] so we can reach you if necessary. [facility] has provided you with a complete list of medications post discharge. Please inform your program control analyst/provider of your visit and for further instruction [...] too much fat, sugar, (more content not included)...[facility] 06-59-8304JThvzycky: BS24-10 Received: 08/04/23 Status: LAZARA Lyn Num: [id number] Spec Type: Surgical Subm Dr: Willis Chen Tissues: A Placenta - 3rd Trimester (Greater than 28 weeks) (PLACENTA) Procedures: HE/3, Gross/Micro L5 Age/ Patient Sex Location Account Attending Physician Princess Cantu 27/F LABELL [id number] Willis Chen SPEC NUM: [id number] RECD: 08/04/23 STATUS: LAZARA LYN NUM: [id number] JOSE: 08/04/[address]: Willis Chen ENTERED: 08/04/[address] [facility] DR: Giselle,Lab SPEC TYPE: Surgical DEPT: [...] parenchyma up to 3.1 cm in thickness. Senior Policy Advisor sections are submitted in 3 cassettes as follows: A1 - membranes, umbilical cord, and decidua basalis A2 - Central placenta full-thickness A3 - Peripheral placenta, full-thickness Specimen: [id number] Received: 08/04/23 Status: LAZARA Lyn Num: [id number] Spec Type: Surgical Subm Dr: Willis Chen Tissues: A Placenta - 3rd Trimester (Greater than 28 weeks) (PLACENTA) Procedures: HE/3, Gross/Micro L5 Patient: Princess Cantu [id number] (Continued) Specimen: [id number] Received: 08/04/23 (Continued) Signed (signature on file) Juliet Sykes MD 08/08/232229 Specimen: BS24- Received: 08/04/23 Status: LAZARA Lyn Num: [id number] Spec Type: Surgical Subm Dr: Willis Chen Tissues: A Placenta - 3rd Trimester (Greater than 28 weeks) (PLACENTA) Procedures: DELMY/3Jesica/Danitza L5 Patient: Princess Cantu [id number] (Continued) Specimen: BS24-10 Received: 08/04/23 (Continued) CPT Codes 68531 Specimen: BS24- Received: 08/04/23 Status: LAZARA Lyn Num: [id number] Spec Type: Surgical Subm Dr: Willis Chen Tissues: A Placenta - 3rd Trimester (Greater than 28 weeks) (PLACENTA) Procedures: DELMYJesica Ott/Danitza L5 Patient: Princess Cantu [id number] (Continued) Signed (signature on file) Juliet Sykes MD 08/08/[address] [place], [place] [address]US OB BPP W NON-STRESS on 39-29-1242[place] [address] Ultrasound Report Signed Patient: PRINCESS CANTU MR#: [id number] : 1995 Acct:[id number] Age/Sex: 27 / F ADM Date: 07/31/23 Loc: US Attending Dr: Willis Chen D.O. Ordering Physician: Willis Chen D.O. Date of Service: 07/31/23 Procedure(s): US OB BPP w non-stress Accession Number(s): [id number] cc: Willis Chen D.O.; Physician,Non-Staff Jake [address] [address] Patient Name: PRINCESS CANTU MRN: [id number] date: 1995 Sex: F Assigned Patient Location: US Current Patient Location: US Accession/Order Number: [id number] Exam Date: 07/31/2023 11:04 Report Date: 08/03/2023 [...] M.D. Signed By: 08/03/23719 DD/ 7 TD/TT: Health Screener:TBHRadiology, Radiologist, - 09/22/2023 [place] [address] Ultrasound Report Signed Patient: PRINCESS CANTU MR#: [id number] : 1995 Acct:[id number] Age/Sex: 27 / F ADM Date: 07/31/23 Loc: US Attending Dr: Willis Chen D.O. Ordering Physician: Willis Chen D.O. Date of Service: 07/31/23 Procedure(s): US OB BPP w non-stress Accession Number(s): [id number] cc: Willis Chen D.O.; Physician,Non-Staff Jake [facility] [place] [id number] Patient Name: PRINCESS CANTU MRN: [id number] date: 1995 Sex: F Assigned Patient Location: US Current Patient Location: US Accession/Order Number: [id number] Exam Date: 07/31/2023 11:04 Report Date: 08/03/2023 [...] M.D. Signed By: 08/03/23719 DD/ 7 TD/TT: Health Screener: JOSY HealthcareRadiology Study observation (narrative)NOMS HealthcareUS OB BPP W NON-STRESSOrdered By: Radiologist Radiology on 33-35-6622GSCZ streamit Work Phone: US OB BPP W NON-STRESSon [phone], [place] [address] Ultrasound Report Signed Patient: PRINCESS CANTU MR#: [id number] : 1995 Acct:[id number] Age/Sex: 27 / F ADM Date: 07/24/23 Loc: US Attending Dr: Willis Chen D.O. Ordering Physician: Willis Chen D.O. Date of Service: 07/24/23 Procedure(s): US OB BPP w non-stress Accession Number(s): [id number] cc: Willis Chen D.O.; Physician,Non-Staff M.DLima [facility] [place] [id number] Patient Name: PRINCESS CANTU MRN: [id number] date: 1995 Sex: F Assigned Patient Location: [facility] Current Patient Location: Accession/Order Number: [id number] Exam Date: 07/24/2023 08:19 Report Date: 07/26/2023 07:09 At the request of: WILLIS HCEN Procedure: US OB BPP w non-stress EXAMINATION: [...] M.D. Signed By: 07/26/23711 DD/ 8 TD/TT: Health Screener:RAYNAadiologchristina, Radiologist, MD - 09/22/2023 [place] [address] Ultrasound Report Signed Patient: PRINCESS CANTU MR#: [id number] : 1995 Acct:[id number] Age/Sex: 27 / F ADM Date: 07/24/23 Loc: US Attending Dr: Willis Chen D.O. Ordering Physician: Willis Chen D.O. Date of Service: 07/24/23 Procedure(s): US OB BPP w non-stress Accession Number(s): [id number] cc: Willis Chen D.O.; Physician,Non-Staff M.No [facility] [place] [phone] Patient Name: PRINCESS CANTU MRN: [id number] date: 1995 Sex: F Assigned Patient Location: [facility] Current Patient Location: Accession/Order Number: [id number] Exam Date: 07/24/2023 08:19 Report Date: 07/26/2023 [...] M.D. Signed By: 07/26/23711 DD/ 8 TD/TT: Health Screener: JOSY HealthcareRadiology Study observation (narrative)NOMS HealthcareUS OB BPP W NON-STRESSOrdered By: Radiologist Radiology on 31-23-1292AKXX streamit Work Phone: US OB BPP W NON-STRESSon [phone] [address] Ultrasound Report Signed Patient: PRINCESS CANTU MR#: [id number] : 1995 Acct:[id number] Age/Sex: 27 / F ADM Date: 07/17/23 Loc: US Attending Dr: Willis Chen D.O. Ordering Physician: Willis Chen D.O. Date of Service: 07/17/23 Procedure(s): US OB BPP w non-stress Accession Number(s): [id number] cc: Willis Chen D.O.; Physician,Non-Staff M.DLima The [place] [address] Patient Name: PRINCESS CANTU MRN: [id number] date: 1995 Sex: F Assigned Patient Location: US Current Patient Location: Accession/Order Number: [id number] Exam Date: 07/17/2023 11:20 Report Date: 07/20/2023 [...] Signed By: 07/20/23713 DD/ 0 TD/TT: Health Screener:TBHRadiology, Radiologist, - 09/22/2023 [place] [address] Ultrasound Report Signed Patient: PRINCESS CANTU MR#: [id number] : 1995 Acct:[id number] Age/Sex: 27 / F ADM Date: 07/17/23 Loc: US Attending Dr: Willis Chen D.O. Ordering Physician: Willis Chen D.O. Date of Service: 07/17/23 Procedure(s): US OB BPP w non-stress Accession Number(s): [id number] cc: Willis Chen D.O.; Physician,Non-Staff Jake [facility] [place] [phone] Patient Name: PRINCESS CANTU MRN: [id number] date: 1995 Sex: F Assigned Patient Location: US Current Patient Location: Accession/Order Number: [id number] Exam Date: 07/17/2023 11:20 Report Date: 07/20/2023 [...] Signed By: 07/20/23713 DD/ 0 TD/TT: Health Screener: NOMS HealthcareRadiology Study observation (narrative)NOMS HealthcareUS OB BPP W NON-STRESSOrdered By: Radiologist Radiology on 11-01-5757RESO Healthcare Work Phone: US OB BPP W NON-STRESSon [phone], [place] [address] Ultrasound Report Signed Patient: PRINCESS CANTU MR#: [id number] : 1995 Acct:[id number] Age/Sex: 27 / F ADM Date: 07/10/23 Loc: FBCO Attending Dr: Wilils Chen D.O. Ordering Physician: Willis Chen D.O. Date of Service: 07/10/23 Procedure(s): US OB BPP w non-stress Accession Number(s): [id number] cc: Willis Chen D.O.; Physician,Non-Staff M.No [facility] [place] [phone] Patient Name: PRINCESS CANTU MRN: [facility]:[id number] date: 1995 Sex: F Assigned Patient Location: [facility] Current Patient Location: Accession/Order Number: [id number] Exam Date: 07/10/2023 14:31 Report Date: 07/11/2023 [...] Draper M.D. Signed By: 07/11/230 DD/ TD/TT: Health Screener:TBHRadiology, Radiologist, MD - 07/11/2023 [place] [address] Ultrasound Report Signed Patient: PRINCESS CANTU MR#: [id number] : 1995 Acct:[id number] Age/Sex: 27 / F ADM Date: 07/10/23 Loc: FBCO Attending Dr: Willis Chen D.O. Ordering Physician: Willis Chen D.O. Date of Service: 07/10/23 Procedure(s): US OB BPP w non-stress Accession Number(s): [id number] cc: Willis Chen D.O.; Physician,Non-Staff Jake [facility] [place] [phone] Patient Name: PRINCESS CANTU MRN: [facility]:[id number] date: 1995 Sex: F Assigned Patient Location: [facility] Current Patient Location: Accession/Order Number: [id number] Exam Date: 07/10/2023 14:31 Report Date: 07/11/2023 [...] M.D. Signed By: 07/11/23 0020 DD/ TD/TT: Health Screener: JOSY HealthcareRadiology Study observation (narrative)NOMS HealthcareUS OB BPP W NON-STRESSOrdered By: Radiologist Radiology on 42-38-2896OYCV Healthcare Work Phone: US OB GROWTHon [phone] [address] Ultrasound Report Signed Patient: PRINCESS CANTU MR#: [id number] : 1995 Acct:[id number] Age/Sex: 27 / F ADM Date: 07/10/23 Loc: FBCO Attending Dr: Willis Chen D.O. Ordering Physician: Willis Chen D.O. Date of Service: 07/10/23 Procedure(s): US OB growth Accession Number(s): [id number] cc: Willis Chen D.O.; Physician,Non-Staff Jake The [address] [address] Patient Name: PRINCESS CANTU MRN: [id number] date: 1995 Sex: F Assigned Patient Location: [facility] [place] [facility]/Order Number: [id number] Exam Date: 07/10/2023 14:31 Report Date: 07/11/2023 [...] Draper M.D. Signed By: 07/11/2349 DD/ TD/TT: Health Screener:LIZETHHRadiology, Radiologist, MD - 09/22/2023 [place] [address] Ultrasound Report Signed Patient: PRINCESS CANTU MR#: [id number] : 1995 Acct:[id number] Age/Sex: 27 / F ADM Date: 07/10/23 Loc: FBCO Attending Dr: Willis Chen D.O. Ordering Physician: Willis Chen D.O. Date of Service: 07/10/23 Procedure(s): US OB growth Accession Number(s): [id number] cc: Willis Chen D.O.; Physician,Non-Staff Jake [facility] [place] [phone] Patient Name: PRINCESS CANTU MRN: [id number] date: 1995 Sex: F Assigned Patient Location: [facility] [place] [facility] [place]ion/Order Number: [id number] Exam Date: 07/10/2023 14:31 Report Date: 07/11/2023 [...] Draper M.D. Signed By: 07/11/2349 DD/ TD/TT: Health Screener: JOSY HealthcareRadiology Study observation (narrative)[facility] HospitalUS OB GROWTHOrdered By: Radiologist Radiology on 92-49-6064LJBX Healthcare Work Phone: DHEA SERUMon 30-02-7496Xsqnjghdrtmnnihqzhmvtg (DHEA) 656 ng/oSIuwbrn37-308CzdClermont County HospitalComment on above:Performed By: #### DHEA. #### [facility] [address] [place] [address] Dr. Vish Mai-MULLERIAN HORMONEon 54-11-5474Qhyk-Mullerian Hormone (AMH) 4.47 ng/mLNormalClermont County HospitalComment on above:Result Comment: For assays employing antibodies, the possibility exists for interference by heterophile antibodies in the samples.1 1.Favio Correia. Interferences in Immunoassays - still a threat. Clin. Chem. 2000; 46: 1553-0823. This test was developed and its performance characteristics determined by [employer]. It has not been cleared or approved by the Food and Drug Administration. Reference Range: Females 26 - 30y: 1.03 - 11.10 Median 4.20 AMH concentrations of >= 1.06 ng/mL is correlated with a better response to ovarian stimulation, produced more retrievable oocytes and higher odds of live according to Ryaner et al. Fertility and Sterility. 2010: 94:2061-6381. The current AMH test method correlates with [...] ovarian tumor.Performed By: #### LBCLH #### [facility] [address] [place] [address] Dr. Vish Olivas-SULFATEon 97-39-6948WTZC-Hnmewuj263.0 ug/dLCritically high 84.8-378.0Clermont County HospitalComment on above:Performed By: #### LBCLH #### [facility] [address] [place] [address] Dr. Vish CardonaTRADIOLon 55-81-6685Jmplzysem93.3 pg/mLNormalClermont County HospitalComment on above:Result Comment: Adult Female: Follicular phase 12.5 - 166.0 Ovulation phase 85.8 - 498.0 Luteal phase 43.8 - 211.0 Postmenopausal <6.0 - 54.7 1st trimester 215.0 - >4300.0 Ele ECLIA methodologyPerformed By: #### ESTRADI #### [facility] [address] [place] [address] Dr. Vish Monroy 79-63-0463ULU8.1 mIU/mLNormalClermont County HospitalComment on above:Result Comment: Adult Female: Follicular phase 3.5 - 12.5 Ovulation phase 4.7 - 21.5 Luteal phase 1.7 - 7.7 Postmenopausal 25.8 - 134.8Performed By: #### LBCFSH #### [facility] [address] [place] [address] Dr. Vish BrownLUTEINIZING HORMONE (LH)on 62-62-9735TP5.5 mIU/mLNormalClermont County HospitalComment on above:Result Comment: Adult Female: Follicular phase 2.4 - 12.6 Ovulation phase 14.0 - 95.6 Luteal phase 1.0 - 11.4 Postmenopausal 7.7 - 58.5Performed By: #### [facility]CL[facility] #### [facility] [address] [place] [address] Dr. Vish BrownPROGESTERONEon 95-24-4587Tesglbourriq3.8 ng/mLNormalClermont County HospitalComment on above:Result Comment: Follicular phase 0.1 - 0.9 Luteal phase 1.8 - 23.9 Ovulation phase 0.1 - 12.0 First trimester 11.0 - 44.3 Second trimester 25.4 - 83.3 Third trimester 58.7 - 214.0 Postmenopausal 0.0 - 0.1Performed By: #### PROGES #### [facility] [address] [place] [address] Dr. Vish Carrillo AUTO DIFFon 76-40-0457RCOE #0.0 103/ulNormal0.0-0.1Clermont County HospitalComment on above:Performed By: #### [facility]CL[facility] #### [facility] [address] [place] [address] Dr. Vish BrownBasophils/100 WBC (Bld)0.5 %Normal0.2-2.0[facility] Comment on above:Performed By: #### LBCLH #### [facility] [address] [place] [address] Dr. Vish Layton #0.3 103/ulNormal0.0-0.7The [facility] HospitalComment on above: Performed By: #### LBCLH #### [facility] [address] [place] [address] Dr. Vish Haqosinophils/100 WBC (Bld)4.0 %Normal0.9-7.0[facility] Comment on above:Performed By: #### [facility]CL[facility] #### [facility] [address] [place] [address] Dr. Yilan ChangErythrocyte distribution width (RBC) [Ratio]12.0 %Qmavps03.0-15.0 The [facility] HospitalComment on above:Performed By: #### LBCLH #### [facility] [address] [place] [address] Dr. Vish BrownHematocrit (Bld) [Volume fraction]39.1 %Ievyvw29.0-48.0The [facility] HospitalComment on above:Performed By: #### [facility]CL[facility] #### [facility] [address] [place] [address] Dr. Vish BrownHemoglobin (Bld) [Mass/Vol]13.0 g/yLAbdirr83.0-16.0The [facility] HospitalComment on above:Performed By: #### [facility]CL[facility] #### [facility] [address] [place] [address] Dr. Vish Lawson #0.02 10e3/ulNormal0.00-0.03The [facility] HospitalComholland hospital on above:Performed By: #### [facility]CL[facility] #### [facility] [address] [place] [address] Dr. Vish Lawson %0.3 %Normal0.0-0.5The [facility] HospitalComholland hospital on above: Performed By: #### [facility]CL[facility] #### [facility] [address] [place] [address] Dr. Vish AvilezH #2.5 103/ulNormal1.2-3.8The [facility] HospitalComholland hospital on above:Performed By: #### [facility] #### [facility] [address] [place] [address] Dr. Vish Jaffemphocytes/100 WBC (Bld)32.4 %Cofzyd19.5-60.0The [facility] HospitalComment on above:Performed By: #### [facility]CL[facility] #### [facility] [address] [place] [address] Dr. Vish BrownMANUAL DIFF REQNONormalThe [facility] HospitalComment on above: Performed By: #### [facility]CL[facility] #### [facility] [address] [place] [address] Dr. Vish Smith (RBC) [Entitic mass]29.9 mtSfnlci98.7-34.0The [facility] HospitalComment on above:Performed By: #### [facility]CL[facility] #### [facility] [address] [place] [address] Dr. Vish Smith (RBC) [Mass/Vol]33.2 g/iZWcqnsa99.9-35.2The [facility] HospitalComment on above:Performed By: #### [facility]CL[facility] #### [facility] [address] [place] [address] Dr. Vish Smith (RBC) [Entitic vol]89.9 tUGvejtb94.0-99.0The [facility] HospitalComment on above:Performed By: #### LBCL[facility] #### [facility] [address] [place] [address] Dr. Vish Power #0.6 103/ulNormal0.3-0.8The [facility] HospitalComment on above:Performed By: #### LBCL #### [facility] [address] [place] [address] Dr. Vish Vigilocytes/100 WBC (Bld)7.4 %Normal1.7-12.0The [facility] Comment on above:Performed By: #### LBCL #### [facility] [address] [place] [address] Dr. Vish Pulliam #4.3 103/ulNormal1.4-6.5The [facility] HospitalComment on above:Performed By: #### [facility]CL[facility] #### [facility] [address] [place] [address] Dr. Vish Lamarutrophils/100 WBC (Bld)55.4 %Eijuey01.0-75.0The [facility] HospitalComment on above:Performed By: #### [facility]CL[facility] #### [facility] [address] [place] [address] Dr. Vish Madisonlet mean volume (Bld) [Entitic vol]9.0 fLCritically low 9.5-13.5The [facility] HospitalComment on above:Performed By: #### [facility]CL[facility] #### [facility] [address] [place] [address] Dr. Vish BrownPLT277 103/wsWzdmxa076-137Nsn [facility] HospitalComment on above: Performed By: #### [facility]CL[facility] #### [facility] [address] [place] [address] Dr. Vish BrownRBC4.35 106/ulNormal4.20-5.40The [facility] HospitalComment on above:Performed By: #### [facility]CL[facility] #### [facility] [address] [place] [address] Dr. Vish BrownWBC7.7 103/ulNormal4.0-11.0The [facility] HospitalComment on above: Performed By: #### [facility]CL[facility] #### [facility] [address] [place] [address] Dr. Vish BrownFRIRENA T4on 89-62-8991Xane T4 [Mass/Vol]1.08 ng/dLNormal0.76-1.46 The [facility] HospitalComment on above:Performed By: #### FT4 #### [facility] [address] [place] [address] Dr. Vish BrownGLYCOHEMOGLOBIN A1Con 08-76-1627EXV RECOMMENDATIONSEE BELOWNormal The [facility] HospitalComholland hospital on above:Result Comment: ADA RECOMMENDED LIMIT 4.0 - 6.0 ADA THERAPEUTIC TARGET < 7.0 ACTION SUGGESTED > 7.0Performed By: #### A1C #### [facility] [address] [place] [address] Dr. Vish BrownGlucose [Mass/Vol]94 mg/dLNormalThe [facility] HospitalComholland hospital on above:Performed By: #### A1C #### [facility] [address] [place] [address] Dr. Vish BrownHbA1c (Bld) [Mass fraction]4.9 %Normal4.5-6.2The [facility] HospitalComment on above:Performed By: #### A1C #### [facility] [address] [place] [address] Dr. Vish BrownPREBhargav QUANT HCGon 94-55-6779TQJ QUANT<1NormalThe [facility] Comment on above:Performed By: #### PREGQNT, TSH #### [facility] [address] [place] [address] Dr. Vish WesleyG RANGESAvita Health System Bucyrus HospitalComment on above: Result Comment: 5-50 0.2-1 WEEK 50-500 1-2 WEEKS 100-5,000 2-3 WEEKS 500-10,000 3-4 WEEKS 1,000-50,000 4-5 WEEKS 10,000-100,000 5-6 WEEKS 15,000-200,000 6-8 WEEKS 10,000-100,000 2-3 MONTHSPerformed By: #### PREGQNT, TSH #### [facility] [address] [place] [address] Dr. Vish Boo 54-96-1498HUG3.030 uIU/mLNormal0.358-3.740Clermont County HospitalComment on above:Performed By: #### PREGQNT, TSH #### [facility] [address] [place] [address] Dr. Vish Massey 19-49 Yearson [id number] 19-49 YearsDiagnoses/Problems Health Maintenance/Risks Encounter for preventive [...] Services - Lab To Draw (Blood Test); Due:60Kgz3094;Ordered; For:Benign essential hypertension; Ordered By:Koffi Uriarte; Provider [...] alcohol (more content not included)...NormalUH TouchworksTobacco Screening.on 50-68-5741Zpuhf depression screening qsjgghzvvrHsWT-GLFO-[place] Work Phone: Fall risk assessmenta) No falls within the last year XY-DZZH-OlazBriefCam Work Phone: Tobacco use status CPHSb) BwIY-PCPA-JfrhBriefCam Work Phone: b-HCG SerPl-aCncon 51-95-0032DWY.beta subunit Qn m[IU]/mLNormal<5.0[facility] on above:Order Comment: Specimen Type: BLOOD SPECIMENOrdering Facility: [facility] Address:[address] [place], [place] [address]Result Comment: Negative Performed By: #### GCCT #### [place] [address] AXACWINUL VAGINOSIS AMPLIFICATIONon 43-01-8504Fbkqcxlmzhbws crispatus+gasseri+jensenii + Gardnerella vaginalis + Atopobium vaginae rRNA HUMERA+probeQl (Vag fld)NegativeNormalNegative for bacterial vaginosisCSycamore Medical Center on above:Order Comment: Specimen Type: SWAB [facility] Address: [address] [place], [place] [address]Performed By: #### CVTV, BVAMP #### [facility] CLIA [id number] [address] [place], [place] [address]C. trachomatis+N. gonorrhoeae DNA HUMERA+probe Ql (Unsp spec)on 04-16-2022. trachomatis DNA HUMERA+probe Ql (Unsp spec)NegativeNormalNegative for Chlamydia trachomatis by amplificatonCSycamore Medical Center on above:Order Comment: Specimen Type: SWAB [facility] Address: [address] [place], [place] [address]Performed By: #### CVTV, BVAMP #### [facility] CLIA [id number] [address] [place] [address] OF GUINEAN. gonorrhoeae DNA HUMERA+probe Ql (Unsp spec)NegativeNormalNegative for Neisseria gonorrhoeae by amplification [facility] on above:Order Comment: Specimen Type: SWAB [facility] Address: [address] [place] [address]Performed By: #### CVTV, BVAMP #### [facility] CLIA [id number] [address] [place] [address] [place] AMERICACANDIDA / TRICHOMONAS AMPLIFICATIONon 66-10-8596KYDNRXK / TRICHOMONAS AMPLIFICATIONCANDIDA SPECIES GROUP RNA: Negative for Mitch species MITCH GLABRATA RNA: Negative for Mitch glabrata TRICH VAG AMPLIFICATION RNA: Negative for Trichomonas vaginalis by amplificationMercy Health Lorain Hospital on above:Performed By: #### CVTV, BVAMP #### [facility] CLIA [id number] [address] [place] [address] [place] OF AMERICACNCOon 52-98-8254HPQDOnhavg Text Letter TextNoSt. 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 IBrendan, have reviewed this information as documented for accuracy and performed all elements of history taking, and edited the record as necessary. 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 #:[id number] BACTERIAL VAGINOSIS AMPLIFICATION [SQBVAMP] Order #: [id number]. #:[id number] GC/CHLAMYDIA DNA DET [SQGCCAMP] Order #: [id number]. #:[id number] SYPHILIS TOTAL W/REFLEX [SQSYPHTX] Order #: [id number] FUTURE HIV 1 2 COMBO(AG/AB),WITH REFLEX TO DIFFERENTIATION [SQHIV12] Order #: [id number] FUTURE HEP C AB IA W/CONF SCRN [YVCSUB7K] Order #: [id number] FUTURE HEP B SURF AG SCRN [SQHBSAG] Order #: [id number] FUTURE Prescriptions as of 04/16/2022 - lamoTRIgine [...] medication Encounter Status:Closed by BRENDAN BLANKENSHIP on 04/16/22NoSt. Rita's HospitalHBV surface Ab IA Ql (S)on 63-93-5586ODK surface Ag Ql (S)Negative NormalNegativeUniversity Hospitals [facility] on above:Order Comment: Specimen Type: BLOOD SPECIMENOrdering Facility: [facility] Address:[address] [place], [place] [address]Performed By: #### GCCT #### [place] [phone] Ab Ser Qlon 93-16-9163YZT Ab Ql (S)NegativeNormalNegative [facility] on above:Order Comment: Specimen Type: BLOOD SPECIMEN [facility] Address: [address] [place], [place] [address]Result Comment: The result suggests no evidence of active infection with Hepatitis C virus. Should recent infection be suspected, repeat testing may be considered 4-6 weeks after this draw.Performed By: #### [id number] #### [facility] CLIA [id number] [address] [place] [address] [place] OF AMERICAHIV 1+2 Ab IA Qlon 93-67-7279QBR 1 and 2 Ab IA.rapid NomMercy Health Lorain Hospital on above:Order Comment: Specimen Type: BLOOD SPECIMENOrdering Facility: [facility] Address:[address] [place], [place] [address]Result Comment: Test not indicated.Performed By: #### GCCT #### [place] [address] XWS 1+2 Ab+HIV1 p24 Ag IA QlNon-ReactiveNormalNonreactiveUniversity Hospitals [facility] on above:Order Comment: Specimen Type: BLOOD SPECIMENOrdering Facility: [facility] Address:[address] [place], [place] [address]Performed By: #### GCCT #### [place] [address] YCLKHOFbxwpzAqnsvzaql Clinic ClevelandComment on above:Order Comment: Specimen Type: BLOOD SPECIMENOrdering Facility: [facility] Address:[address] [place], [place] [address]Result Comment: No evidence of HIV-1 or HIV-2 infection. Should recent infection be suspected, repeat testing may be considered 2-3 weeks after this draw. [place] Rev. Code 3701.243(E): This information has been [...] results or diagnoses.Performed By: #### GCCT #### [place] [address] Ifxpsp and Treponema pallidum IgG and IgM [Interp]on 04-16-2022 SYPHILIS INTERPRETATIONCannot exclude recent Treponemal infection if specimen collected within 7-10 days after appearance of suspect lesions or 2-3 weeks after an exposure. Clinical correlation is required.NormalUniversity Hospitals Parma Medical Center on above:Order Comment: Specimen Type: BLOOD SPECIMENOrdering Facility: [facility] Address:[address] [place], [place] [address]Performed By: #### GCCT #### [place] [phone]. pallidum IgG+IgM IA Ql (S)Non-ReactiveNormalNonreactiveUniversity [facility]als [facility] on above:Order Comment: Specimen Type: BLOOD SPECIMENOrdering Facility: [facility] Address:[address] [place], [place] [address]Performed By: #### GCCT #### [place] [address] CCRSMFTRUFspvbsl By: SYSTEM SYSTEM on 10-76-7434MCC.beta subunit Qn1 m[IU]/mLNormal1 - 3 mIU/mLFTMC RemisolCNPNon 27-46-1425KGPTEbztyqluw ([facility] PRINCESS CANTU ([id number]) 1995 F Date Time Provider Department 03/24/22 [...] Fully Assessed Reason for Visit: Bleeding With [20577] Primary Visit Diagnosis:Bleeding in early [O20.9] Order(s):HCG QUANTITATIVE [SQHCGQT] Order #: [id number] FUTURE Prescriptions as of 03/24/2022 - metroNIDAZOLE [...] 07/04/2021 Encounter Status:Closed by BRENDAN SOUZA on 03/24/22[facility] 93-61-7230BBUJDijenpbab (OBGYCC) PRINCESS CANTU ([id number]) 1995 F Date Time Provider Department 03/19/[address] [facility] During your visit today, we [...] 07/04/2021 Encounter Status:Closed by MARY ONOFRE on 03/19/22[facility] ([facility])on 49-53-8356Ltednx-up visitProvider Impressions 1. Seizure: Stable. Last episode [...] bowel/bladder incontinence. She was taken to [facility] in [place]. She had lab work and a CT [...] DAILY. Vitals Vital Signs Recorded: 24Dec2021 11:32AM Xpvpchybarf85.1 F Heart Rate54 Mrylevvs256 Eefrjpbsl30 Height5 ft 9 in Bigbvu256 lb 1.6 oz BMI Vklgphpncj02.03 kg/m2 BSA Calculated2.11 Tobacco Useb) No Fall Screeninga) No falls within the last year O2 Riusknnsgg407, RA Physical Exam Constitutional: General appearance: no [...] 2021 11:37AM EST (Author) Normal TouchworksTobacco Screening.on 39-37-4320Ozjv risk assessmenta) No falls within the last gjvlNT-Ssljhkurm-Qugnzubb SJW DO Work Phone: Tobacco use status CPHSb) WlGU-Xxcjdjvox-Qrrgpqup SJW DO Work Phone: Office Visit (Primary [...] Known Drug Allergies Vitals Vital Signs Recorded: 79Hee4081 01:08PM Temperature: 97 F Heart Rate: 70 [...] 17 2021 1:34PM EST (Author)NormalUH TouchworksTobacco Screening.on 12-15-0994Iikig depression screening gxqmgjwkzdYcSD-DJAZ-[place] Work Phone: Fall risk assessmenta) No falls within the last year VO-SDER-UexwBriefCam Work Phone: Tobacco use status CPHSb) OwAU-ACCU-ZrdaBriefCam Work Phone: bact Vag Amplificationon 54-59-9503Jwyl Vag AmplificationPositiveCritically abnormalNegative for bacterial vaginosis Cleveland ClinicComment on above:Performed By: #### GCCT #### [facility] [employer] [address] [place], [place] [address] SXWUqm 93-95-2250JDMMNywqoi [facility] PRINCESS CANTU ([id number]) 1995 F Date Time Provider Department 09/09/21 [...] History Social History Narrative Single No pregnancies 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 Portions of this record were documented by the Information Technology Security Analyst. I, Brendan Blankenship, have reviewed this information as documented for accuracy and performed all elements of history taking, and edited the record as necessary. 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: Small amount yellow mucus discharge, cervix [...] Order(s):MITCH / TRICHOMONAS AMPLIFICATION [SQCVTV] Order #: [id number] BACTERIAL VAGINOSIS AMPLIFICATION [SQBVAMP] Order #: [id number] GC/CHLAMYDIA DNA DET [SQGCCAMP] Order #: [id number] metroNIDAZOLE (FLAGYL) 500 mg tabletTake 1 tablet [...] Letter Text Encounter Status:Closed (more content not included)...NormalCleveland ClinicCandida Trich Amplon 71-45-2793Ivgenar glabrata RNANegativeNormal NegativeCleveland ClinicComment on above:Performed By: #### GCCT #### [place] [address] Wljqffv sp group RNANegativeNormalNegativeCleveland Clinic Comment on above:Performed By: #### GCCT #### [place] [address] Tgbsinibuwz RNANegativeNormalCAultman Orrville HospitalComment on above:Performed By: #### GCCT #### [place] [phone]/Chlamydia Amplifon 75-13-4798Ykvojbnsu AmplifNegativeNormal Cleveland ClinicComment on above:Performed By: #### GCCT #### [place] [address] WR AmplificationNegativeNormalCAultman Orrville HospitalComment on above:Performed By: #### GCCT #### [place] [phone]/Chlam Amp SourceCervixNormalClevelUNC HealthComment on above:Performed By: #### GCCT #### [facility] [place] [id number] [phone] Vag Amplificationon 60-75-2646Ocju Vag AmplificationNegative NormalNegative for bacterial vaginosisCAultman Orrville HospitalComment on above:Performed By: #### CVTV, BVAMP #### [facility] CLIA [id number] [address] [place] [address] OF [facility] CENTERCNOVon 02-76-5412TZPUJyjeyl Visit (OBGYCC) PRINCESS CANTU ([id number]) [address] 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 Some of these tests may be ordered or performed by your primary care doctor. Pap test screening The pap test loo (more content not included)...NormalCleveland Clinic Mitch Trich Amplon 90-43-7581Zuhfxoz glabrata RNANegativeNormalNegative Cleveland ClinicComment on above:Performed By: #### CVTV, BVAMP #### [facility] CLIA [id number] [address] [place] [address] [place] OF AMERICACandida sp group RNANegative NormalNegativeCleveland ClinicComment on above:Performed By: #### CVTV, BVAMP #### [facility] CLIA [id number] [address] [place] [address] [place] AMERICATrichomonas RNANegative NormalCleveland ClinicComment on above:Performed By: #### CVTV, BVAMP #### [facility] CLIA [id number] [address] [place] [address] STATES OF AMERICAGC/Chlamydia Amplifon 52-37-6214Owvgivljm AmplifNegativeNormalCAultman Orrville HospitalComment on above:Performed By: #### GCCT #### [place] [phone] AmplificationNegativeNormalCAultman Orrville HospitalComment on above:Performed By: #### GCCT #### [place] [phone]/Chlam Amp SourceCervixNormalCAultman Orrville HospitalComment on above:Performed By: #### GCCT #### [place] [phone] Screening.on 90-12-8994Pkxq risk assessmenta) No falls within the last qlfeHR-Gyfhajrji-Nharueun GetBulb ZENT Work Phone: Tobacco use status CPHSb) IeWC-Irzyzohhv-Ecypnbyo GetBulb ZENT Work Phone: GC + Chlamydia By Amplified Detectionon 05-20-2021. trachomatis rRNA HUMERA+probe Ql (Unsp spec)CbrcwvqyXrueiyplGQ-ADTU-[place] Work Phone: comment on above:The APTIMA Combo 2 assay is FDA- approved for Chlamydia trachomatis and Neisseria gonorrhoeae testing on female endocervical and vaginal swabs, ThinPrep liquid pap samples, male urine samples and urethral swabs. Performance characteristics for Chlamydia trachomatis and Neisseria gonorrhoeae testing on specific qjc-UTH-hldmgpwe sample types (female urine samples) have been validated by [facility]. This laboratory is certified by CLIA to perform high complexity evie ting. Samples from all other sites are not validated for this method.N. gonorrhoeae rRNA HUMERA+probe Ql (Unsp spec)JloynkvjKhrbdgxoLB-OCOZ-[place]xl [place] Work Phone: comment on above:SOURCE: Urine The APTIMA Combo 2 assay is FDA-approved for Chlamydia trachomatis and Neisseria gonorrhoeae testing on female endocervical and vaginal swabs, ThinPrep liquid pap samples, male urine samples and urethral swabs. Performance characteristics for Chlamydia trachomatis and Neisseria gonorrhoeae testing on specific vdk-JSK-tqpiwfmk sample types (female urine samples) have been validated by [facility]. This laboratory is certified by CLIA to perform high complexity testing. Samples from all other sites are not validated for this method.TSHon 69-22-8248QRU Qn2.30 m[IU]/LNormal0.44 - 3.98St. [facility] HospitalComment on above:Result Comment: TSH testing is performed using different testing methodology at [facility] than at other [facility]. Direct result comparisons should only be made within the same method.Performed By: #### TSH2 #### [address] [place], [place] [address]ZFX - Thyroid Stimulating Hormone, Serumon 52-34-3015IUE Qn 2.30 m[IU]/LSee VqfnkMI-MDOS-[place] Work Phone: comment on above:Reference Range: 0.44 - 3.98 TSH testing is performed using different testing methodology at [facility] than at other [facility]. Direct result comparisons should only be made within the same method.Tobacco Screening.on 32-11-6138Mbya risk assessment a) No falls within the last wxolXR-IPQF-[place] Work Phone: Tobacco use status CPHSb) VuYR-TANS-Ihfd [place] Work Phone: cBCon 59-32-9965Pcwbsttifeh distribution width (RBC) [Ratio]13.2 %Oelpce34.5 - 14.5St. [facility] HospitalComment on above:Performed By: #### CBC #### [address] [place], [place] [address]Hesnfhvcta (Bld) [Volume fraction]39.5 %Tufhpz22.0 - 46.0St[facility] HospitalComment on above:Performed By: #### CBC #### [address] [address]Dlehywefjz (Bld) [Mass/Vol]13.0 g/xARkctrc88.0 - 16.0St[facility] HospitalComment on above:Performed By: #### CBC #### [address] [address]CQPT (RBC) [Mass/Vol]32.9 g/sVSttimr10.0 - 36.0St[facility] HospitalComment on above:Performed By: #### CBC #### [address] [address]ARX (RBC) [Entitic vol]91 tVSrlwot14 - 100St. [facility] HospitalComment on above:Performed By: #### CBC #### [address] [address]WTFHQFMFJ RBC0.0 /100 WBCNormal0.0 - 0.0St. [facility] HospitalComment on above:Performed By: #### CBC #### [address] [address]Nnmblbnpu (Bld) [#/Vol]235 10*3/qBNrsuuq924 - 450St[facility] HospitalComment on above:Performed By: #### CBC #### [address] [address]ONF3.33 x10E12/LNormal4.00 - 5.20[facility] Comment on above:Performed By: #### CBC #### [address] [address]PQW (Bld) [#/Vol]5.8 10*3/uLNormal4.4 - 11.3St. [facility] HospitalComment on above:Performed By: #### CBC #### [address] [address]CEGWJTQCWBKYW PANELon 73-09-1523Irknyql [Mass/Vol]4.7 g/dL Normal3.4 - 5.0St[facility] HospitalComment on above:Performed By: #### CMP #### [address] [place], [place] [address]SOP [Catalytic activity/Vol]53 U/AUychbi87 - 110St[facility] HospitalComment on above:Performed By: #### CMP #### [address] [place], [place] [address]DBC [Catalytic activity/Vol]41 U/LNormal7 - 45St. [facility] HospitalComment on above:Result Comment: Patients treated with Sulfasalazine may generate falsely decreased results for ALT.Performed By: #### CMP #### [address] [address]Cmjag gap [Moles/Vol]10 mmol/HHmdjay10 - 20St[facility] HospitalComment on above:Performed By: #### CMP #### [address] [address]BUD [Catalytic activity/Vol]27 U/LNormal9 - 39St[facility] HospitalComment on above:Performed By: #### CMP #### [address] [address]Urvhiznrm [Mass/Vol]0.6 mg/dLNormal0.0 - 1.2St[facility] HospitalComment on above:Performed By: #### CMP #### [address] [address]Fovwfyi [Mass/Vol]9.5 mg/dLNormal8.6 - 10.3St[facility] HospitalComment on above:Performed By: #### CMP #### [address] [address]Yauomlsh [Moles/Vol]105 mmol/LJerryo30 - 107St. [facility] HospitalComment on above:Performed By: #### CMP #### [address] [address]Ibiyrxmzuh [Mass/Vol]0.93 mg/dLNormal0.50 - 1.05St[facility] HospitalComment on above:Performed By: #### CMP #### [address] [place], [place] [address]RYP-MKKJNHE AM.>60Normal>60St[facility] HospitalComment on above:Result Comment: CALCULATIONS OF ESTIMATED GFR ARE PERFORMED USING THE MDRD STUDY EQUATION FOR THE IDMS-TRACEABLE CREATININE METHODS. CLIN CHEM 2007;53:766-72Performed By: #### CMP #### [address] [place], [place] [address]FOH-VDZ AM.>60Normal>60St[facility] HospitalComment on above:Performed By: #### CMP #### [address] [place], [place] [address]Hfndwgf [Mass/Vol]94 mg/lMXnqcqw99 - 99[facility] Comment on above:Performed By: #### CMP #### [address] [place], [place] [address]YQC4 (Bld) [Moles/Vol]28 mmol/RQrqiar18 - 32St[facility] HospitalComment on above:Performed By: #### CMP #### [address] [place], [place] [address]Yhvehjutj [Moles/Vol]4.4 mmol/LNormal3.5 - 5.3St[facility] HospitalComment on above:Performed By: #### CMP #### [address] [place], [place] [address]Yeyvlmh [Mass/Vol]7.3 g/dLNormal6.4 - 8.2St[facility] HospitalComment on above:Performed By: #### CMP #### [address] [place], [place] [address]Vzvlej [Moles/Vol]139 mmol/IYxwngw853 - 145St. [facility] HospitalComment on above:Performed By: #### CMP #### [address] [place], [place] [address]Eaqs nitrogen [Mass/Vol]13 mg/dLNormal6 - 23St[facility] HospitalComment on above:Performed By: #### CMP #### [place] [address] [facility]. [place], [place] [address]Xojlmokpknsj 28-20-4367Ppvuopzytu (Bld) [Volume fraction]39.5 %See ZqryrUI-Slztdcbdq-Sgaeyuwd SJW DO Work Phone: Comment on above:Reference Range: 36.0 - 46.0 Hemoglobin (Bld) [Mass/Vol]13.0 g/dLSee SgdswBZ-Lngzhnwtw-Fhjjvira SJW DO Work Phone: Comment on above:Reference Range: 12.0 - 16.0MCV (RBC) [Entitic vol]91 fL80 - 135RH-Qbbtxjmrz-Zrzyciiq SJW DO Work Phone: Platelets (Bld) [#/Vol]235 {x10E9/L}150 - 450 VM-Phkhzrxxo-ObkyodkvLawrence F. Quigley [facility] Hospital DO Work Phone: RBC (Bld) [#/Vol]4.33 {x10E12/L}See Below QQ-Qwcjrsqrd-MxakgwhkLawrence F. Quigley Memorial Hospital DO Work Phone: Comment on above:Reference Range: 4.00 - 5.20WBC (Bld) [#/Vol]5.8 {x10E9/L}4.4 - 11.6ZF-Ramjnbmvq-Uicpknlb SJW DO Work Phone: WBC (Bld) [#/Vol]0.0 {/100_WBC}0.0 - 0.0 CA-Taijycnuc-HensxxuyLawrence F. Quigley Memorial Hospital DO Work Phone: LAMOTRIGINE- LAMICTALon 60-65-0345JIOWXIGWIKT- LAMICTAL6.4 ug/mLNormal2.5 - 15.0[facility] – AltusComment on above: Performed By: #### LAMOT #### [facility] [address] [place], [place] [address]Hvjhkxeyddv Level, Serumon 99-21-7128Uhkgdyngzos [Mass/Vol] 6.4 ug/mL2.5 - 15.2QH-Awctqlglx-Pkbjvmcw SJW DO Work Phone: [phone] Panelon 16-54-6479CRP [Catalytic activity/Vol]53 U/L33 - 258AN-Bogcfftjo-Sjrxnjae SJW DO Work Phone: [phone] gap [Moles/Vol]10 mmol/L10 - 20 XL-Teidvdopy-Qcqodmgc SJW DO Work Phone: [phone] [Mass/Vol]0.6 mg/dL0.0 - 1.2 LL-Rzhlxlrrc-Rxqxrsjs SJW DO Work Phone: [phone] [Mass/Vol]9.5 mg/dL8.6 - 10.3 OM-Jclltyknr-Vixglbon SJW DO Work Phone: [phone] [Moles/Vol]105 mmol/L98 - 107 AJ-Nrnnuyksr-Ggmneivs SJW DO Work Phone: [phone] [Moles/Vol]28 mmol/L21 - 28QU-Ampmfipfz-Xthomhyd SJW DO Work Phone: [phone] [Mass/Vol]0.93 mg/dLSee Below YB-Nvprddjve-Olqcplnl SJW DO Work Phone: Comment on above:Reference Range: 0.50 - 1.05Glucose [Mass/Vol]94 mg/dL74 - 28WK-Tvbhkjidi-Iomsyuir SJW DO Work Phone: [phone] [Moles/Vol]4.4 mmol/L3.5 - 5.3 OY-Ssztxicgj-Dmelnpxx SJW DO Work Phone: [phone] [Mass/Vol]7.3 g/dL6.4 - 8.2 MO-Ipopaxlxo-Udovqmll SJW DO Work Phone: [phone] [Moles/Vol]139 mmol/L136 - 145 KQ-Yihujnult-Bvifmzmf SJW DO Work Phone: [phone] nitrogen [Mass/Vol]13 mg/dL6 - 23 AR-Igqgwstbl-Tdneljph SJW DO Work Phone: [phone] 95-87-0459Dpyddwz BCP dye [Mass/Vol]4.7 g/dL 3.4 - 5.7FQ-Kicvpkzqe-NexlojoaWadley Regional Medical Center DO Work Phone: ALT With P-5'-P [Catalytic activity/Vol]41 U/L7 - 45 [facility] DO Work Phone: Comment on above:Patients treated with Sulfasalazine may generate falsely decreased results for ALT.AST With P-5'-P [Catalytic activity/Vol]27 U/L9 - 64WC-Inbpjmrhh-JzjjnxtrWadley Regional Medical Center DO Work Phone: Erythrocyte distribution width (RBC) [Ratio]13.2 %See FpgneLF-Qemwmpjlx-Khlsqpke SJW DO Work Phone: Comment on above:Reference Range: 11.5 - 14.5MCHC (RBC) [Mass/Vol]32.9 g/dLSee GfblxTW-Ntphyppcz-Gnawemza SJW DO Work Phone: Comment on above:Reference Range: 32.0 - 36.0>60>60 [facility] Center DO Work Phone: Comment on above:CALCULATIONS OF ESTIMATED GFR ARE PERFORMED USING THE MDRD STUDY EQUATION FOR THE IDMS-TRACEABLE CREATININE METHODS. CLIN CHEM 2007;53:766-72MRI BRAIN W WO CONTRASTon [id number] are no acute intracranial changes, no evidence of ischemia or hemorrhage. There are no regions of signal abnormality. There are no areas of abnormal enhancement after contrast administration.[facility], [place]EXAM[place]ATION: MRI BRAIN W WO CONTRAST [...] limits. The calvarium and soft tissues are unremarkable.[facility]- [place], Margreti, [facility] Incoming Radiant Results From Naviswiss/Instructure - 05/09/2020 3:02 PM EDT EXAMINATION: MRI [...] no areas of abnormal enhancement after contrast administration.[facility], [facility] BRA[facility] W WO CONTRASTEXAMINATION: MRI BRAIN [...] Signed by: David Winter MD 05/09/20 Final resultNormSt. Mary's Medical Center With Platelet and Differentialon [id number] (Bld) [#/Vol]0.1 10*3/uLNormal0.0-0.2Mtrumbull memorial hospitaly [facility] Arizona Specialty HospitalComment on above:Performed By: #### CBCWD #### [facility] [address] [place] [address] Xyshsuotw/100 WBC (Bld)0.4 %NormalMercy Memorial HospitalComment on above:Performed By: #### CBCWD #### [facility] [address] [place] [address] Ktpaplzdqcc (Bld) [#/Vol]0.5 10*3/uLNormal0.0-0.7Mercy Memorial HospitalComment on above:Performed By: #### CBCWD #### [facility] [address] [place] [address] Lbepfhunjyd/100 WBC (Bld)4.2 %[facility] Community HospitalComment on above:Performed By: #### CBCWD #### [facility] [address] [place] [address] Asfczchkxcf distribution width (RBC) [Ratio]12.5 %Dnbwrn89.5-14.5 Mercy Memorial HospitalComment on above:Performed By: #### CBCWD #### [facility] [address] [place] [address] Oshybbwmdn (Bld) [Volume fraction]39.4 %Xdorny17.0-47.0Mercy Memorial HospitalComment on above:Performed By: #### CBCWD #### [facility] [address] [place] [address] Nkyjcfjbck (Bld) [Mass/Vol]13.3 g/dZKelyei83.0-16.0Mer[facility] Memorial HospitalComment on above:Performed By: #### CBCWD #### [facility] [address] [place] [address] Lrbmkvamqrx (Bld) [#/Vol]3.2 10*3/uLNormal1.0-4.8Mercy Memorial HospitalComment on above:Performed By: #### CBCWD #### [facility] [address] [place] [address] Afrqgtfyyvk/100 WBC (Bld)26.9 %[facility] Community HospitalComment on above:Performed By: #### CBCWD #### [facility] [address] [place] [address] UEP (RBC) [Entitic mass]29.8 zzDowwpn69.0-31.3MGerman Hospital Comment on above:Performed By: #### CBCWD #### [facility] [address] [place] [address] HSOO (RBC) [Mass/Vol]33.8 %Zvjfyf12.0-37.0[facility] Comment on above:Performed By: #### CBCWD #### [facility] [address] [place] [address] PHA (RBC) [Entitic vol]88.4 aZMbeadv54.0-100.0[facility] Comment on above:Performed By: #### CBCWD #### [facility] [address] [place] [address] Xfhwcapbz (Bld) [#/Vol]0.8 10*3/uLNormal0.2-0.8[facility] Comment on above:Performed By: #### CBCWD #### [facility] [address] [place] [address] Yeowbqtqa/100 WBC (Bld)6.8 %NormalMercy Memorial HospitalComment on above:Performed By: #### CBCWD #### [facility] [address] [place] [address] Ccclsvvsism (Bld) [#/Vol]7.3 10*3/uLCritically high1.4-6.5Mercy Memorial HospitalComment on above:Performed By: #### CBCWD #### [facility] [address] [place] [address] Sstegwokoga/100 WBC (Bld)61.7 %[facility] Community HospitalComment on above:Performed By: #### CBCWD #### [facility] [address] [place] [address] Oyuydejme (Bld) [#/Vol]314 10*3/sXJjzjsi890-682Tzxea [facility] Comment on above:Performed By: #### CBCWD #### [facility] [address] [place] [address] NNQ (Bld) [#/Vol]4.45 10*6/uLNormal4.20-5.40[facility] Comment on above:Performed By: #### CBCWD #### [facility] [address] [place] [address] GJZ (Bld) [#/Vol]11.9 10*3/uLCritically high4.8-10.8Mercy Memorial HospitalComment on above:Performed By: #### CBCWD #### [facility] [address] [place] [address] QN HEAD WO CONTRASTon 68-85-1553GM HEAD WO CONTRASTCOMPARISON: No prior studies available [...] Jayce De Jesus DO 04/19/20 Final resultNormalMercy Memorial HospitalComprehensive Metabolic Panelon 04-19-2020 Albumin [Mass/Vol]4.9 g/dLCritically high3.5-4.6MGerman HospitalComment on above:Performed By: #### CMP #### [facility] [address] [place] [address] MDU [Catalytic activity/Vol]40 U/YPjdsml73-274SjjiaMercy Memorial Hospital Comment on above:Performed By: #### CMP #### [facility] [address] [place] [address] XFG [Catalytic activity/Vol]17 U/LNormal0-33[facility] Comment on above:Performed By: #### CMP #### [facility] [address] [place] [address] Farvb gap [Moles/Vol]14 mmol/LNormal9-15Mercy Memorial HospitalComment on above:Performed By: #### CMP #### [facility] [address] [place] [address] YQW [Catalytic activity/Vol]17 U/LNormal0-35[facility] Comment on above:Performed By: #### CMP #### [facility] [address] [place] [address] Qwgwrvwrv [Mass/Vol]mg/dLNormal0.2-0.7Mer[facility] Memorial HospitalComment on above:Performed By: #### CMP #### [facility] [address] [place] [address] Jcrabdn [Mass/Vol]10.0 mg/dLCritically high8.5-9.9Mer[facility] Memorial HospitalComment on above:Performed By: #### CMP #### [facility] [address] [place] [address] Xnduzkaa [Moles/Vol]101 mmol/MBctppu19-205JqmndMercy Memorial Hospital Comment on above:Performed By: #### CMP #### [facility] [address] [place] [address] OY1 [Moles/Vol]24 mmol/DJuporx34-45UthdrMercy Memorial HospitalComment on above:Performed By: #### CMP #### [facility] [address] [place] [address] Xiiujzgtib [Mass/Vol]0.87 mg/dLNormal0.50-0.90[facility] Comment on above:Performed By: #### CMP #### [facility] [address] [place] [address] IGS/1.73 sq M predicted among blacks MDRD (S/P/Bld) [Vol rate/Area] mL/min/{1.73_m2}Normal>60Mercy Memorial HospitalComment on above:Result Comment: >60 mL/min/1.73m2 EGFR, calc. for ages 18 and older using the MDRD formula (not corrected for weight), is valid for stable renal function.Performed By: #### CMP #### [facility] [address] [place] [address] ZYC/1.73 sq M.predicted MDRD (S/P/Bld) [Vol rate/Area] mL/min/{1.73_m2}Normal>60Mer[facility] Memorial HospitalComment on above:Result Comment: >60 mL/min/1.73m2 EGFR, calc. for ages 18 and older using the MDRD formula (not corrected for weight), is valid for stable renal function.Performed By: #### CMP #### [facility] [address] [place] [address] Jrpyekho (S) [Mass/Vol]3.1 g/dLNormal2.3-3.5[facility] Comment on above:Performed By: #### CMP #### [facility] [address] [place] [address] Oohrrbb [Mass/Vol]94 mg/rDGznlao13-99OolqiGerman HospitalComment on above:Performed By: #### CMP #### [facility] [address] [place] [address] Cocsvossh [Moles/Vol]3.9 mmol/LNormal3.4-4.9[facility] Comment on above:Performed By: #### CMP #### [facility] [address] [place] [address] Indijcu [Mass/Vol]8.0 g/dLNormal6.3-8.0Mer[facility] Memorial HospitalComment on above:Performed By: #### CMP #### [facility] [address] [place] [address] Xxvtpu [Moles/Vol]139 mmol/QTjvycw834-928OuiinMercy Memorial HospitalComment on above:Performed By: #### CMP #### [facility] [address] [place] [address] Cgix nitrogen [Mass/Vol]12 mg/dLNormfl6-20[facility] Comment on above:Performed By: #### CMP #### [facility] [address] [place] [address] Qodgxt Acidon 41-03-7239Usezwae [Moles/Vol]1.8 mmol/LNormal0.5-2.2 [facility] Memorial HospitalComment on above:Performed By: #### LACID #### [facility] [address] [place] [address] Vohaiqbraso 95-86-2029Zuyhdpyjd656.8 ng/mLNBetsy Johnson Regional Hospital Comment on above:Result Comment: Default Normal Ranges Female Male Non: 4.8-23.3 4.0-15.2Performed By: #### PROLA #### [facility] [address] [place] [address] Cvrxy HCG Qualitativeon 12-67-8767ZNC.beta subunit QnNegativeNormal Mercy Memorial HospitalComment on above:Performed By: #### SHCG #### [facility] [address] [place] [address] Vucnivyuqd, reflex to cultureon 40-55-0869Hooyo Reflexed to Culture Not IndicatedNormalMercy Memorial HospitalComment on above:Performed By: #### UAR #### [facility] [address] [place] [address] Yknvtlmks Ql (U)NegativeNormalNegativeMercy Memorial HospitalComment on above:Performed By: #### UAR #### [facility] [address] [place] [address] Djbeepp (U)ClearNormalClearMercy Memorial HospitalComment on above: Performed By: #### UAR #### [facility] [address] [place] [address] Bkzti (U)YellowNormalStraw/YellMercy Memorial HospitalComment on above: Performed By: #### UAR #### [facility] [address] [place] [address] Xrzoseb Ql (U)NegativeNormalNegWhite Memorial Medical CenterComment on above:Performed By: #### UAR #### [facility] [address] [place] [address] Cqotswlytn Ql (U)Trace-intactNormalNegWhite Memorial Medical Center Comment on above:Performed By: #### UAR #### [facility] [address] [place] [address] Tyxfvzv Ql (U)NegativeNormalNegWhite Memorial Medical CenterComment on above:Performed By: #### UAR #### [facility] [address] [place] [address] Obrfwanwq esterase Test strip Ql (U)NegativeNormalNegWhite Memorial Medical CenterComholland hospital on above:Performed By: #### UAR #### [facility] [address] [place] [address] Qnvtcyj Ql (U)NegativeNormalNegWhite Memorial Medical CenterComment on above:Performed By: #### UAR #### [facility] [address] [place] [address] zH (U)6.0 [pH]Normal5.0-9.0Mercy Memorial HospitalComment on above: Performed By: #### UAR #### [facility] [address] [place] [address] Btdopou Ql (U)NegativeNormalNegWhite Memorial Medical CenterComment on above:Performed By: #### UAR #### [facility] [address] [place] [address] Zmplqdtz gravity (U) [Rel density]1.369Ykvrwd7.005-1.03Mer[facility] Memorial HospitalComment on above:Performed By: #### UAR #### [facility] [address] [place] [address] Peynskyyrrrf Qn (U)0.2 {Alan'U}/dLNormal< 2.0[facility] Comment on above:Performed By: #### UAR #### [facility] [address] [place] [address] Svesi Microscopicon 63-15-6702Yutusntsnd cells LM Ql (Urine sed)0-2 NormalMercy Memorial HospitalComment on above:Performed By: #### UMIC #### [facility] [address] [place] [address] GEJ (U) [#/Vol]0-1Cdqkrq8-9FgsdnGerman HospitalComment on above: Performed By: #### UMIC #### [facility] [address] [place] [address] JQA (U) [#/Vol]0-5Vejjwq8-4BpmrpMercy Memorial HospitalComment on above: Performed By: #### UMIC #### [facility] [address] [place] [address] DDT Auto Differentialon 35-86-9884Myvroybie (Bld) [#/Vol]0.1 10*3/uL 0 - 0.2 K/uLGrand Lake Joint Township District Memorial Hospitalcy Health- [place], KYBasophils/100 WBC (Bld)0.4 %[facility]- [place], [place] Eosinophils (Bld) [#/Vol]0.5 10*3/uL0 - 0.7 K/uLGrand Lake Joint Township District Memorial Hospitalcy [facility]- [place], [place] Eosinophils/100 WBC (Bld)4.2 %[facility]- [place], KYErythrocyte distribution width (RBC) [Ratio]12.5 %11.5 - 14.5 %[facility]- [place], KYHematocrit (Bld) [Volume fraction]39.4 %37 - 47 %[facility]- [place], KYHemoglobin (Bld) [Mass/Vol]13.3 g/dL 12 - 16 g/dLThe [facility]- [place], KYInterpretation and review of laboratory results AbnormalC[facility] Clinic [facility]- [place], KYLymphocytes (Bld) [#/Vol]3.2 10*3/uL1 - 4.8 K/uL [facility]- [place], KYLymphocytes/100 WBC (Bld)26.9 %[facility]- [place], KYMCH (RBC) [Entitic mass]29.8 pg27 - 31.3 pgThe [facility] Hospital Health- [place], KYMCHC (RBC) [Mass/Vol]33.8 %33 - 37 %[facility]- [place], KYMCV (RBC) [Entitic vol]88.4 fL82 - 100 fLThe Christ Hospital Health- [place], KYMonocytes (Bld) [#/Vol]0.8 10*3/uL0.2 - 0.8 K/uLThe [facility] Hospital [facility]- [place], KYMonocytes/100 WBC (Bld)6.8 %[facility]- [place], KYNeutrophils Absolute7.3 K/uL High1.4 - 6.5 K/uLThe [facility]- [place], KYNeutrophils/100 WBC (Bld)61.7 %[facility]- [place], KYPlatelets (Bld) [#/Vol]314 10*3/uL130 - 400 K/uLThe [facility]- [place], KYRBC (Bld) [#/Vol]4.45 10*6/uLThe [facility]- [place], KYWBC (Bld) [#/Vol]11.9 10*3/uL High4.8 - 10.8 K/uLThe [facility]- [place], KYComprehensive Metabolic Panelon 04-55-1100Wpvxyiy [Mass/Vol]4.9 g/dLHigh3.5 - 4.6 g/dLThe [facility]- [place], KYALP [Catalytic activity/Vol]40 U/L40 - 130 U/LMtrumbull memorial hospital Health- [place], KYALT [Catalytic activity/Vol]17 U/L0 - 33 U/LMercy Health- [place], KYAnion gap [Moles/Vol]14 mmol/L [facility]- [place], KYAST [Catalytic activity/Vol]17 U/L0 - 35 U/LMercy Health- [place], KYBilirubin Ql (U)<0.20.2 - 0.7 mg/dLThe [facility]- [place], KYCalcium [Mass/Vol] 10.0 mg/dLHigh8.5 - 9.9 mg/dLMercy Health- [place], KYChloride [Moles/Vol]101 mmol/L [facility]- [place], KYCO2 [Moles/Vol]24 mmol/LMtrumbull memorial hospitaly Health- [place], KYCreatinine [Mass/Vol]0.87 mg/dL0.5 - 0.9 mg/dLThe [facility]- [place], KYGFR >60.0 >60[facility]- [...] function. Globulin (S) [Mass/Vol]3.1 g/dL2.3 - 3.5 g/dLCleveland Clinic Lutheran Hospital- [place], KYGlucose [Mass/Vol]94 mg/dL70 - 99 mg/dLThe [facility]- [place], KYInterpretation and review of laboratory resultsAbnormalMerEvergreenHealth Monroe- [place], KYPotassium [Moles/Vol]3.9 mmol/L [facility]- [place], KYProtein [Mass/Vol]8.0 g/dL6.3 - 8 g/dLCleveland Clinic Luther[facility] Hospital- [place], [place] Sodium [Moles/Vol]139 mmol/LMtrumbull memorial hospital Health- [place], KYUrea nitrogen [Mass/Vol]12 mg/dL 6 - 20 mg/dLCleveland Clinic Luther[facility]- [place], KYHCG Qualitative, Serumon 55-14-6980mXP Qual NegativeMerEvergreenHealth Monroe- [place], KYLactic Acid, Plasmaon 05-53-1368Ajrtjst [Moles/Vol] 1.8 mmol/L0.5 - 2.2 mmol/LMtrumbull memorial hospitaly Health- [place], KYMicroscopic Urinalysison 77-55-9015Pfbrbuunoe Cells, UA0-2/HPFThe [facility]- [place], KYRBC (U) [#/Vol]0-2Mtrumbull memorial hospitaly Health- [place], KYWBC, UA0-2[facility]- [place], KYUrine Reflex to Cultureon [id number] UrineNegativeNegativeMercy Health- [place], KYBlood, Urine Trace-intactNegativeMercy Health- [place], KYClarity, UAClearClearMercy Health- [place], KYColor, UAYellowStraw/YellowMercy Health- [place], KYGlucose, UrNegativeNegative mg/dLMercy Health- [place], KYKetones Ql (U)NegativeNegative mg/dLMercy Health- [place], KYLeukocyte esterase Test strip Ql (U)NegativeNegativeMercy Health- [place], [place] Nitrite, UrineNegativeNegativeMercy Health- [place], KYpH, UA6.0[facility]- [place], [place] Protein (U) [Mass/Vol]NegativeNegative mg/dLMercy Health- [place], KYSpecific [place], UA1.020[facility]- [place], KYUrine Reflex to CultureNot IndicatedMercy Health- [place], KYUrobilinogen, Urine0.2<2.0 E.U./dLMercy Health- [place], [place] ECHOCARDIOGRAPHY REPORT (HL)on 11-94-5226SJEEQZSBTAIAACQD REPORT (HL)CANTU, PRINCESS [id number] [id number] 179.6F 1.63i1NhudpceuobYQPOYNPUBZZVVL LABReferring: Koffi Uriarte A.Reading: CURTIS GARCIA Transthoracic [...] 4 CH 16.1 cm2LA Volume Indexed 21.05 ml/e3Uwuqrwvjd/Systolic FunctionMV E- wave Vmax 0.884 m/secMV deceleration time 193 msecMV A-wave Vmax 0.494 m/secLV septal e' Vmax 0.115 m/secLV lateral e' Vmax 0.189 m/secLV E:e' septal ratio 7.7 ratio [facility] PRINCESS CANTU [id number] [place] [address] [id number] 93Koffi Uriarte MDECHOCARDIOGRAPHY REPORTLV E:e' lateral ratio [...] There is no evidence ofpulmonic regurgit ation. [facility] PRINCESS CANTU [id number] [place] [address] [id number] 93Koffi Uriarte MDECHOCARDIOGRAPHY REPORTPericardium:There is no pericardial [...] is a normal echocardiogram.PARAS GARCIA05/10/2017 10: 26:53 [facility] PRINCESS CANTU [id number] [place] [address] [id number]/16/94[facility] [place][Note 2]Koffi roper MDECHOCARDIOGRAPHY REPORTNormalSaint Rmc Stringfellow Memorial HospitalBASIC METABOLIC PANELon 33-00-5884Qmymt gap10 mmol/LNormal6-18Saint [facility] Memorial HospitalComment on above: Order Comment: Is patient fasting? YESPerformed By: #### LBMP, LGFRP ####[facility] [address] [place], [place] [address]Calcium9.6 mg/dLNormal 8.6-10.3SHanover HospitalComment on above:Order Comment: Is patient fasting? YESPerformed By: #### LBMP, LGFRP ####[facility] [address] [place], [place] [address]Ewhkutmp547 mmol/KEumrgp81-297GkltaMemorial Hospital Of Converse County Comment on above:Order Comment: Is patient fasting? YESPerformed By: #### LBMP, LGFRP ####[facility] [address] [place], [place] [address] mmol/L Vjfhhx43-38ZqalfMemorial Hospital Of Converse CountyComment on above:Order Comment: Is patient fasting? YESPerformed By: #### LBMP, LGFRP ####[facility] [address] [place] [address]Audukvnbmb0.74 mg/dLNormal0.5-1.05Memorial Hospital Of Converse CountyComment on above:Order Comment: Is patient fasting? YESPerformed By: #### LBSHAWN, LGFRP ####[facility] [address] [place] [address]Lxgdckl mass conc82 mg/bMWdfixu38-36YdpylMemorial Hospital Of Converse CountyComment on above:Order Comment: Is patient fasting? YESPerformed By: #### LBSHAWN, LGFRP ####[facility] N[address] [place] [address]Lbontisrn molar conc4.1 mmol/LNormal3.5-5.3SHanover HospitalComment on above:Order Comment: Is patient fasting? YESPerformed By: #### LBMP, LGFRP ####[facility] [address] [place] [address]Hgiflk460 mmol/KUck591-281QethfMemorial Hospital Of Converse CountyComment on above:Order Comment: Is patient fasting? YESPerformed By: #### LBMP, LGFRP ####[facility] [address]knn[address] [place], [place] [address]Ytfi wgsopprc27 mg/dLNormal6-23Memorial Hospital Of Converse CountyComment on above:Order Comment: Is patient fasting? YESPerformed By: #### LBMP, LGFRP ####[facility] [address] [place] [address]OLK AUTOon 05-04-2017 Erythrocyte distribution width Auto Ratio (RBC)12.8 %Wcxyng43.5-14.5SHanover HospitalComment on above:Performed By: #### LCBC ####[address] [address]Wlqxglubiryn (RBC)4.65 10*6/uLNormal3.5-5.5 [facility] Of Converse CountyComment on above:Performed By: #### LCBC ####[address] [address]Gjweprqtwx (HCT)41.1 %Normal 36.0-48.0Mem[facility] Hospital Of Converse CountyComment on above:Performed By: #### LCBC ####[address] [address]Hojdoifmyd mass conc (Bld)13.8 g/oYJdqwxg74.0-15.0Mem[facility] Hospital Of Converse CountyComment on above: Performed By: #### LCBC ####[address] [address]PIN60.7 lvLywruq43.4-34.6Mem[facility] Hospital Of Converse CountyComment on above: Performed By: #### LCBC ####[address] [address]ZXVR mass conc (RBC)33.6 g/uLXrmovk37.0-36.0[facility] Comment on above:Performed By: #### LCBC ####[address] [address]VSS88.4 dBYyyoag33.0-98.0Mem[facility] Of Converse CountyComment on above:Performed By: #### LCBC ####[address] [address]Zivsjjcg mean volume (PMV)9.3 fLNormal8.4-11.9Mem[facility] Of Converse CountyComment on above:Performed By: #### LCBC ####[address] [address]Hgyadwgau866 10*3/xPLlthef981-016YdwpvMemorial Hospital Of Converse CountyComment on above:Performed By: #### LCBC ####[facility] [address]smoctc[address] [place], [place] [address]VKY (Leukocytes)6.1 10*3/uLNormal3.9-11.0 [facility] Converse CountyComment on above:Performed By: #### LCBC ####[facility] [address]vgzjc[address] [place], [place] [address]ETJMEFQANA FILTRATION RATE ESTon 02-95-9200gJCV (non-black)mL/min/{1.73_m2}Normal> 60[facility] Of Converse CountyComment on above:Order Comment: Is patient fasting? YESPerformed By: #### LBMP, LGFRP ####[facility] [address] [place], [place] [address]KR AMER> 90Normal> 60Mem[facility] Of Converse CountyComment on above:Order Comment: Is patient fasting? YESResult Comment: Effective 12/12/14:CKD-EPI equation / based on IDMS traceable creatinine.Continue touse the CREAT CLR-DOSE (Cockgroft-Gault)value for determining medication dose.Performed By: #### LBMP, LGFRP ####[facility] [address]pgff[address] [place] [address] Vital Signs Date TimeVital SignValuePerforming HnhviahhgFfylberu09-65-8415 10:07-0400Body mass index (BMI) [Ratio]27.02 kg/m2Roula VILLEDA Work Phone: [facility] HospitalXanfwdgcyo63-59-5346 10:07-0400Body qwvukd58.01 kgRoula VILELDA Work Phone: [phone] HospitalZatgyjgiiy06-52-7520 10:07-0400Diastolic blood vfauafwi34 mm[Hg]Roula VILLEDA Work Phone: [phone] HospitalUvunacbrzc56-22-4585 10:07-0400Systolic blood mm[Hg]Roula VILLEDA Work Phone: SplotherNorth [facility] City HospitalBnqmvgnrjd23-24-6570 15:12-0400Body mass index (BMI) [Ratio]27.04 kg/r2HpqxoWillis Chen DO Work Phone: [phone] [place], [place] [address]Gngspstmxs82-27-9686 15:12-0400Body iotfvn49.06 kgCorey April DO Work Phone: [phone] [place], [place] [address]Shcxbliyzs79-73-0708 15:12-0400Diastolic blood dnqwoooy21 mm[Hg]Willis April DO Work Phone: [phone] [place], [place] [address]Ftmdjohbzt54-23-4223 15:12-0400Systolic blood lpjsnsca756 mm[Hg]Willis April DO Work Phone: [phone])[facility] [place] [address]-20-2025 15:39-0400Body mass index (BMI) [Ratio]26.26 kg/m2Amy Mitchel VILLEDA Work Phone: [phone])[facility] [place], [place] [address]Yejmvjjjma12-91-3561 15:39-0400Body oxktty24.65 kgAmy Mitchel VILLEDA Work Phone: [phone])[facility] [place], [place] [address]Qsnawqjyuh70-25-1105 15:39-0400Diastolic blood umtsiwbu79 mm[Hg]Roula VILLEDA Work Phone: [phone])[facility] [place], [place] [address]Xwswhjagei12-94-9510 15:39-0400Systolic blood azmlkqec906 mm[Hg]Roula VILLEDA Work Phone: [phone])[facility] [place], [place] [address]Emkepvibmp34-49-9984 15:09-0400Body mass index (BMI) [Ratio]26.11 kg/c8Xcbqj April DO Work Phone: [phone])[facility] [place], [place] [address]Iprwumdtzh23-99-7756 15:09-0400Body oywkwh35.2 kg Willis April DO Work Phone: 1(830)[facility] [place], [place] [address]Qmsqnzawwc70-89-7950 15:09-0400Diastolic blood lvkywrth39 mm[Hg]Willis April DO Work Phone: 1(196)[facility] [place], [place] [address]Czmmubwsua07-70-9339 15:09-0400Systolic blood llzsdhaq285 mm[Hg]Willis April DO Work Phone: [phone])[facility] [place], [place] [address]Clulkpcmbc40-30-5694 09:35-0400Body mass index (BMI) [Ratio]25.92 kg/m2Amy Mitchel VILLEDA Work Phone: 1(913)[facility]-[address] [place], [place] [address] 09:35-0400Body eobsoo78.61 kgRoula VILLEDA Work Phone: [phone] [place], [place] [address]Xensjikymy72-62-6368 09:35-0400Diastolic blood modbowdv79 mm[Hg]Roula VILLEDA Work Phone: [id number] 09:35-0400Systolic blood fhdbtnuv489 mm[Hg]Roula VILLEDA Work Phone: 1(263)142-[address] [place], [place] [address]Lrizpdlxhk35-72-3429 11:56-0400Body mass index (BMI) [Ratio]26.55 kg/u1[facility]ms[facility]06-27-2025 11:56-0400Body weight 81.56 kgMed[facility]02-25-2025 12:28-0500Body gyynco092.3 cmKoffi Uriarte MD Work Phone: [phone])856-[facility]02-25-2025 12:28-0500 Body mass index (BMI) [Ratio]27.06 kg/w3XejxnpsKoffi Uriarte MD Work Phone: [phone] 12:28-0500 Body tagnqqqkhev11.3 [degF]Koffi Uriarte MD Work Phone: 1([phone]-[facility]02-25-2025 12:28-0500 Body xhddti28.12 kgKoffi Uriarte MD Work Phone: [facility]02-25-2025 12:28-0500 Diastolic blood ssyujsmd89 mm[Hg]Koffi Uriarte MD Work Phone: [facility]02-25-2025 12:28-0500 Heart rate71 /minKoffi Uriarte MD Work Phone: [facility]02-25-2025 12:28-0500 Systolic blood npemhnux445 mm[Hg]Koffi Uriarte MD Work Phone: [facility]10-16-2024 09:18-0400 Body qbucyg769.3 Tawanda Calderon MD Work Phone: [facility]10-16-2024 09:18-0400 Body mass index (BMI) [Ratio]28.15 kg/d8AydmneNedra Calderon MD Work Phone: [facility]10-16-2024 09:18-0400 Body csxtcybhbsr32.91 [degF]Nedra Calderon MD Work Phone: [facility]10-16-2024 09:18-0400 Body oshbre92.46 kgNedra Calderon MD Work Phone: [facility]10-16-2024 09:18-0400 Diastolic blood qfoyaxxx84 mm[Hg]Nedra Calderon MD Work Phone: [facility]10-16-2024 09:18-0400 Heart rate67 /Wilner Calderon MD Work Phone: [facility]10-16-2024 09:18-0400 Systolic blood xauwtygd592 mm[Hg]Nedra Calderon MD Work Phone: [facility]04-23-2024 15:27-0400 [facility] 15:27-0400Body mass index (BMI) [Ratio]28.2 kg/d7[facility]ap[facility]04-23-2024 15:27-0400Body sacmuvsarln43.1 [degF][facility]04-23-2024 15:27-0400Body jtkcic48.74 [facility]04-[facility]-2024 15:27-0400Heart rate63 /[facility]04-23-2024 15:27-0400Respiratory rate18 /[facility]04-23-2024 15:27-8453VeN1% (BldA) [Mass fraction]99 %[facility] 07-31-2022 10:54-0500Body hibuin388.26 cmKoffi Uriarte Work Phone: [facility] [place] Work Phone: 1(466) 320-436601-13-2023 10:54-0500Body mass index (BMI) [Ratio] 31.01 kg/u9Befuper A Chapito Work Phone: [facility] [place] Work Phone: 1(391) 145-227801-13-2023 10:54-0500Body surface area Derived from formula2.11 e2Tlpscou A Chapito Work Phone: [facility] [place] Work Phone: 1(615) 370-779901-13-2023 10:54-0500Body vtemkivlsfo31.6 [degF] Koffi A Chapito Work Phone: [facility] [place] Work Phone: 1(436) 503-690701-13-2023 10:54-0500Body .26 kgMonique A Chapito Work Phone: [employer] [place] Work Phone: 1(782) 688-199001-13-2023 10:54-0500Diastolic blood hzeovvfk60 mm[Hg] Koffi Alison Uriarte Work Phone: [facility] [place] Work Phone: 1(845) 497-181101-13-2023 10:54-0500Heart rate76 /minMonique A Chapito Work Phone: [facility] [place] Work Phone: 1(989) [phone] 10:54-0500Respiratory rate18 /minMonique A Chapito Work Phone: [facility] [place] Work Phone: 1(519) 653-842001-13-2023 10:54-0500Systolic blood xmjkqyzm384 mm[Hg] Koffi Alison Uriarte Work Phone: mpSilver[employer]Com[employer] Work Phone: 1(531) [phone] 11:32-0400Body thlvva151.26 cmMonique A Uriarte Work Phone: mp404-0478QR-Ntojdtath-Eugene SJW DO Work Phone: 1(923) 118-746306-08-2022 11:32-0400Body mass index (BMI) [Ratio] 31.03 kg/l2Ozdptdk A Uriarte Work Phone: mp086-0165UA-Wurcwufdy-[place] SJW DO Work Phone: 1(501) 246-394806-08-2022 11:32-0400Body surface area Derived from formula2.11 d7Lfnghgh A Uriarte Work Phone: mp479-2918KF-Umlldawpy-[employer] SJW DO Work Phone: 1(271) 210-316906-08-2022 11:32-0400Body tjnapbnfjkm61.1 [degF] Koffi Alison ClementeUriarte Work Phone: mp000-4865ZH-Kgrklxzuu-[employer]iol[employer] W DO Work Phone: 1(161) [phone] 11:32-0400Body zvdjcy69.3 kgMonique A Uriarte Work Phone: mp798-0964RX-Trzpjxfca-[employer]iol[employer] W DO Work Phone: 1(787) [phone] 11:32-0400Diastolic blood wsnlrobe23 mm[Hg] Koffi Alison Uriarte Work Phone: mp104-4445MG-Lsrcpwwxo-Eugene W DO Work Phone: 1(417) [phone] 11:32-0400Heart rate54 /minMonique A Chapito Work Phone: mp897-8783NN-Lqnmngrff-[place] SJW DO Work Phone: 1(781) 895-853606-08-2022 11:32-4404SiN3% (BldA) [Mass fraction]100 % Koffiminesh Uriarte Work Phone: mp041-5073GW-Cnaoffpkw-[place] SJW DO Work Phone: 1(326) 198-945506-08-2022 11:32-0400Systolic blood mm[Hg] Koffi A Chapito Work Phone: mp623-6863ER-Ccpjypakc-[place] SJ DO Work Phone: 1(974) 279-462605-02-2022 13:08-0400Body nxuxhd737.72 cmMonique A Chapito Work Phone: mp-[employer] [place] Work Phone: 1(144) 618-151705-02-2022 13:08-0400Body mass index (BMI) [Ratio] 32.39 kg/c1Crimnuu A Chapito Work Phone: mp-[employer] [place] Work Phone: 1(395) 903-320905-02-2022 13:08-0400Body surface area Derived from formula2.1 l7Ntxcrhh A Chapito Work Phone: mp-[employer] [place] Work Phone: 1(894) 799-544605-02-2022 13:08-0400Body gjiqufcppfy67 [degF]Koffi A Chapito Work Phone: mp[facility] [place] Work Phone: 1(278) 586-108005-02-2022 13:08-0400Body lhrach48.62 kgMonique A Chapito Work Phone: [employer] [place] Work Phone: 1(615) 291-267105-02-2022 13:08-0400Diastolic blood mm[Hg] Koffi A Chapito Work Phone: [employer] [place] Work Phone: 1(552) 365-752305-02-2022 13:08-0400Heart rate70 /minMonique A Chapito Work Phone: [employer] [place] Work Phone: 1(728) 797-665105-02-2022 13:08-0400Respiratory rate18 /minMonique A Chapito Work Phone: [employer] [place] Work Phone: 1(631) [phone] 13:08-2761MzQ6% (BldA) [Mass fraction]96 % Koffi Uriarte Work Phone: mp[facility] [place] Work Phone: 1(971) [phone] 13:08-0400Systolic blood eewrzdda967 mm[Hg] Koffi Uriarte Work Phone: mp-WSPC-NMRKT Work Phone: 1(447) [phone] 10:54-0500Body owcdeb718.72 cmKoffi Uriarte Work Phone: mp377-5233VP-Zwymevggu-Eugene W DO Work Phone: 1(894) 366-845312-08-2021 10:54-0500Body mass index (BMI) [Ratio] 32.08 kg/l9YlxpkyiKoffi Uriarte Work Phone: mp780-3962VZ-Ckakudjhi-Eugene W DO Work Phone: 1(928) 335-340412-08-2021 10:54-0500Body surface area Derived from formula2.09 m0KroodtsKoffi Clementeson Work Phone: mp334-0189NP-Xdtewaqut-Eugene W DO Work Phone: 1(353) [phone] 10:54-0500Body dwlfsqemmtt45.1 [degF] Koffi Uriarte Work Phone: mp786-5282VW-Ycywcygvq-Eugene SJW DO Work Phone: 1(993) 262-996912-08-2021 10:54-0500Body acxdvn19.71 kgKoffi Clementeson Work Phone: mp490-8537UM-Iamfblcoi-Eugene SJW DO Work Phone: 1(934) 162-179212-08-2021 10:54-0500Diastolic blood ufigorij76 mm[Hg] Koffi Clementeson Work Phone: mp386-8494VI-Xclqtwrro-Eugene SJW DO Work Phone: 1(340) 570-630512-08-2021 10:54-0500Heart rate67 /minMonminesh Clementeson Work Phone: mp790-3619AT-[facility]jzajhycbLaw[facility] DO Work Phone: 1(931) [phone] 10:54-0500Respiratory rate18 /minMonminesh Uriarte Work Phone: mp044-5071GS-XdeclwidqLawrence F. [facility] DO Work Phone: 1(149) 259-761712-08-2021 10:54-2365GiG3% (BldA) [Mass fraction]99 % Koffi Uriarte Work Phone: mp670-4215RS-FuukpvkkzLawrence F. [facility]ig[facility] DO Work Phone: 1(176) [phone] 10:54-0500Systolic blood xtwkqyln757 mm[Hg] Koffi Uriarte Work Phone: mp006-8206AT-IjckaomylLawrence F. [facility]igley [facility] DO Work Phone: 1(930) [phone] 15:59-0400Body msykwl722.72 cmMonminesh Clementeson Work Phone: mp-[employer] Work Phone: 1(851) 478-229211-02-2021 15:59-0400Body mass index (BMI) [Ratio] 31.93 kg/g8Lqnzodnminesh Uriarte Work Phone: mp-[employer] Work Phone: 1(457) 962-245811-02-2021 15:59-0400Body surface area Derived from formula2.09 k4NujtzqtKoffi Clementeson Work Phone: mp-[employer] Work Phone: 1(121) 783-836311-02-2021 15:59-0400Body wjsexthddsj79.1 [degF] Koffi Clementeson Work Phone: [employer] Work Phone: 1(926) 600-935411-02-2021 15:59-0400Body zrcmev73.26 kgMonique Alison ClementeUriarte Work Phone: [employer] Work Phone: 1(149) 362-577211-02-2021 15:59-0400Diastolic blood ckiuwmoz55 mm[Hg] Koffi Uriarte Work Phone: [employer] Work Phone: 1(264) 561-426311-02-2021 15:59-0400Heart rate72 /minMonique A Chapito Work Phone: [employer] Work Phone: 1(389) 228-338511-02-2021 15:59-0400Respiratory rate16 /minMonique A Chapito Work Phone: [employer] [place] Work Phone: 1(464) 202-933611-02-2021 15:59-0400Systolic blood cfcgsovf803 mm[Hg] Koffi Uriarte Work Phone: [employer] [place] Work Phone: 1(823) 485-182106-08-2021 14:45-0400Body teipjj865.72 cmMonique A Chapito Work Phone: [employer] [place] Work Phone: 1(376) 493-216806-08-2021 14:45-0400Body mass index (BMI) [Ratio] 30.71 kg/m4Juprsqs A Chapito Work Phone: [employer] [place] Work Phone: 1(965) 498-585206-08-2021 14:45-0400Body surface area Derived from formula2.05 t7Srrxxuy A Uriatre Work Phone: [employer] [place] Work Phone: 1(951) [phone] 14:45-0400Body ztruciqlfnb79.8 [degF] Koffi A Uriarte Work Phone: [employer] [place] Work Phone: 1(180) 122-868606-08-2021 14:45-0400Body hguvfo36.63 kgMonique A Uriarte Work Phone: [employer] [place] Work Phone: 1(659) [phone] 12:59-0400Body kwtekm247.72 cmMonique A Chapito Work Phone: mp-[employer]SPCF[employer] AsiaJennifer Ruby Work Phone: 1(829) 275-299706-08-2021 12:59-0400Body mass index (BMI) [Ratio] 30.71 kg/u2Inwqlxu A Uriarte Work Phone: [employer] [place] Work Phone: 1(698) 264-613206-08-2021 12:59-0400Body surface area Derived from formula2.05 r2Kkfxhks A Uriarte Work Phone: [employer] [place] Work Phone: 1(935) [phone] 12:59-0400Body bthbwnucpzh12.2 [degF] Koffi A Chapito Work Phone: [employer] [place] Work Phone: 1(728) 339-590506-08-2021 12:59-0400Body axsndi61.63 kgMonique A Chapito Work Phone: mp[employer] [place] Work Phone: 1(216) [phone] 12:59-0400Diastolic blood fduyfuef00 mm[Hg] Koffi A Chapito Work Phone: [employer] [place] Work Phone: 1(214) 924-618806-08-2021 12:59-0400Heart rate75 /minMonique A Uriarte Work Phone: [employer] [place] Work Phone: 1(241) [phone] 12:59-0400Respiratory rate16 /minMonique A Uriarte Work Phone: mp-[employer]CF[employer] AsiaJennifer Ruby Work Phone: 1(816) 371-453506-08-2021 12:59-0400Systolic blood wgfqepxb672 mm[Hg] Koffi A Uriarte Work Phone: mp-[employer]SPC[employer] Work Phone: 1(239) [phone] 13:26-0500BMI (Body Mass Index)29.04 kg/m2 Koffi UriarteZhrcgwghpeIQ-Lyxjchjrz-Mkvifkjs W DO Work Phone: 1(892) [phone] 13:26-0500Body Hxykkizulgt30.5 [degF] Koffi UriarteMqbjetpqvhNQ-Pazorlzzx-Uitcltzt W DO Work Phone: 1(353) [phone] 13:26-0500Body izileq56.64 kgKoffi UriarteNblowifkpxCO-Ocfoipubz-Zejvmhus W DO Work Phone: 1(455) 539-264301-27-2021 13:26-0500BP Quycklxez334 mm[Hg]Koffi ClementeOqcidllvjcWZ-Ifecfkfau-Rewiwyiw W DO Work Phone: 1(322) [phone] 13:26-0500BP Ylrvwioh888 mm[Hg]Koffi TavarezQbyqivftzxLU-Ixqqthnya-Lrueufcn W DO Work Phone: 1(977) [phone] 13:26-0500BSA (Body Surface Area)2 m2 Koffi UriarteSznjcbozgtQH-Yqesbwakh-Knrhyhif W DO Work Phone: 1(916) 219-698001-27-2021 13:26-4275Pwqale187.72 cmKoffi Uriarte TO-Ogtcyczgo-Fnvlktuz SJW DO Work Phone: 1(820) 120-215611-10-2020 15:24-0500BMI (Body Mass Index)28.59 kg/m2 Koffi TavarezGcbayigjzzEP-QUKL-[place] Work Phone: 1(606) 351-762911-10-2020 15:24-0500Body Undljwormnz97.6 [degF] Koffi UriarteFawfxbopagXU-LJSS-[place] Work Phone: 1(762) 454-315611-10-2020 15:24-0500Body tnsyhj87.28 kgKoffi UriarteOcrugapnpqFD-GIPS-[place] Work Phone: 1(186) 526-372411-10-2020 15:24-0500BP Drewsvwxz85 mm[Hg]Koffiminesh TavarezFlbtewmnluJE-CSEM-[place] Work Phone: 1(457) 339-668611-10-2020 15:24-0500BP Gekzwpkw043 mm[Hg]Koffi JohnsonCkoyyluihjHC-QVRL-[place] Work Phone: 1(513) 568-330011-10-2020 15:24-0500BSA (Body Surface Area)1.99 m2 Koffi UriarteUdmzjxpvntPM-XYZZ-[place] Work Phone: 1(801) 883-869511-10-2020 15:24-3796Bpklla850.72 cmKoffi Uriarte [facility] Work Phone: 1(610) [phone] 15:24-0500Pulse (Heart Rate)70 /minKoffi TavarezKrmbbtqbkyKU-NIGA-[place] Work Phone: 1(174) 250-853611-10-2020 15:24-0500Respiratory Rate18 /minKoffi TavarezZfwixchkeoTX-PREF-[place] Work Phone: 1(125) 888-565210-08-2020 16:01-0400BMI (Body Mass Index)28.59 kg/m2 Koffi UriarteAuvtwpmtrbUK-SSKW-[place] Work Phone: 1(694) 757-201210-08-2020 16:01-0400Body Xnrjqqzjqkc86.6 [degF] Koffi TavarezVipowwrvenWU-CONE-[place] Work Phone: 1(288) 291-103710-08-2020 16:01-0400Body .28 kgKoffi TavarezAdzonpfarzIL-CXBA-[place]kuw [place] Work Phone: 1(597) 545-161410-08-2020 16:01-0400BP Zcswutxrp448 mm[Hg]Koffi TavarezNnuaoocwilFE-CBFV-[place] Work Phone: 1(857) 580-465910-08-2020 16:01-0400BP Dokxijfp738 mm[Hg]Koffi TavarezQznnzedjbeWS-QMGT-[place]ltb [place] Work Phone: 1(392) [phone] 16:01-0400BSA (Body Surface Area)1.99 m2 Koffi TavarezGehxemtjsiVW-MSZO-[place]vm [place] Work Phone: 1(464) [phone] 16:01-4518Zkqnub524.72 cmKoffi Uriarte LK-JFBW-[place] Work Phone: 1(772) [phone] 16:01-0400Pulse (Heart Rate)76 /minKoffi TavarezPaixbbmkzhRP-YHET-[place] Work Phone: 1(393) 119-956510-08-2020 16:01-0400Respiratory Rate16 /minKoffi TavarezVivmaoogjqOR-YWJT-[place] Work Phone: 1(861) 823-188810-02-2020 00:00-0400BP Agfxqeyly72 mm[Hg][facility], WT67-18-1894 00:00-0400BP Ftlgcmjn621 mm[Hg][facility], QB41-99-0835 22:17-0400BMI (Body Mass Index)28.06 kg/f4PfpcuckClarion Hospital, HX80-17-6578 22:17-0400Body Xhddhklfihj86.91 [degF][facility], DK79-06-9768 22:17-0400Body molbli03.18 kgClarion Hospital, EF07-53-5910 22:17-3532Rlobtp830.3 cmClarion Hospital, NC03-40-1463 22:17-0400Pulse (Heart Rate)105 /[facility], [place] 04-18-2020 22:17-0400Pulse Bgeugnmx44 %[facility], [place] 04-18-2020 22:17-0400Respiratory Rate16 /[facility], [place] Encounters Encounter DateEncounter TypeCare ProviderFacilityStart: 05-29-2025 End: 65-92-7317Rtiabv flowsheetCorey April DO Work Phone: [facility]BGYNStart: 05-29-2025 End: 20-65-3647Ggiepm flowsheetCorey April DO Work Phone: [facility] [place] [facility]BGYNStart: 05-29-2025 End: 26-02-9797utvtliqdkfVBCQC FAZIONot AvailableStart: 05-19-2025 End: 45-11-6002Tbewrzbnb Result EncounterRoula VILLEDA Work Phone: noMS External Department UnsolicitedStart: 05-19-2025 End: 32-47-9098Noqbyedky Result EncounterRoula VILLEDA Work Phone: noms External Department UnsolicitedStart: 04-30-2025 End: 80-38-6574Jqcfpd flowsheetRoula VILLEDA Work Phone: noMS [place] OBGYNStart: 04-30-2025 End: 72-21-7698Ollshn Tim VILLEDA Work Phone: [facility] [place] OBGYNStart: 04-30-2025 End: 77-14-5540uxpqppciglUJJ MITCHELNot AvailableStart: 04-30-2025 End: 65-58-2063Nrcfqgsq flow sheetRoula VILLEDA Work Phone: noms Giselle OBGYNComment on above:Second trimester ([facility]); 24 weeks gestation of ([facility]); Hypertension, unspecified type; Seizure ([facility]); Diabetes mellitus screeningStart: 04-07-2025 End: 84-87-0140Cgazsfmih Result EncounterRoula VILLEDA Work Phone: noms External Department UnsolicitedStart: 04-07-2025 End: 14-68-5200Vsvzvhrtj Result EncounterRoula VILLEDA Work Phone: noms External Department UnsolicitedStart: 04-04-2025 End: 47-00-9262Qpyglcri flow sheetCorey April DO Work Phone: [facility] [place] OBGYNComment on above:20 weeks gestation of ([facility]); Second trimester ([facility])Start: 04-04-2025 End: 99-96-4300lkolyairexLGOSX FAZIONot AvailableStart: 04-04-2025 End: 10-92-3620Mdmxrjanh Result EncounterCorey April DO Work Phone: noms External Department UnsolicitedStart: 04-04-2025 End: 02-52-3162Vklfapbgg Result EncounterCorey April DO Work Phone: noms External Department UnsolicitedStart: 03-14-2025 End: 22-93-6029ypbsjqjjolQRK MITCHELNot AvailableStart: 03-07-2025 End: 48-01-7343Ueajuqz encounter procedureRoula Grullon CHRISTIANA Work Phone: [facility] Work Phone: Start: 03-07-2025 End: 35-50-8492Jynueuph flow sheetRoula Lerneraayush VILLEDA Work Phone: noms Giselle OBGYNComment on above:Well woman exam with routine gynecological exam; Second trimester ([facility]); 16 weeks gestation of ([facility]); Vaginal discharge; STD exposure; Screening, , for anatomic survey ([facility])Start: 03-07-2025 End: 62-53-0519wvwcgwsitkBYV MITCHELNot AvailableStart: 03-07-2025 End: 63-04-7426Ubitey flowsheetRoula Lerneraayush VILLEDA Work Phone: [facility] [place] OBGYNStart: 03-07-2025 End: 03-51-3753Iodvbz flowstayaRoula Mitchel PA Work Phone: [facility] [place] OBGYNStart: 03-07-2025 End: 24-61-4093Aiurkhncp Result EncounterRoula Grullon CHRISTIANA Work Phone: noms External Department UnsolicitedStart: 03-07-2025 End: 02-42-2622Rjzobprv Result EncounterRoula Lerneraayush VILLEDA Work Phone: noms External Department UnsolicitedStart: 02-21-2025 End: 30-60-5708ehjhenqryfYZCXW FAZIONot AvailableStart: 02-07-2025 End: 46-12-1027Amxcpamo flow sheetCorey April DO Work Phone: NOJQ [place] OBGYNComment on above:First trimester ([facility]); 12 weeks gestation of ([facility]); Missed menses; Subchorionic hematoma in second trimester, single or unspecified fetus ([facility]) Start: 02-07-2025 End: 39-98-2429mhpabbnbydNTJAM FAZIONot AvailableStart: 02-07-2025 End: 37-68-7405Vmtqye flowsheetCorey April DO Work Phone: NODZ BCP OBStart: 02-07-2025 End: 07-63-4225Cgmnzz flowsheetCorey April DO Work Phone: NOKW BCP OBStart: 02-01-2025 End: 23-83-4381Knikhs Tim VILLEDA Work Phone: NONS BCP OBStart: 02-01-2025 End: 18-38-6521Ypomxo Tim VILLEDA Work Phone: NORK BCP OBStart: 02-01-2025 End: 35-31-3667Trrmba outpatient visit 15 minutesAmy Mitchel VILLEDA Work Phone: noms BCP OBComment on above:Nausea and vomiting, unspecified vomiting type (Primary Dx); First trimester ([facility]); 11 weeks gestation of ([facility])Start: 02-01-2025 End: 09-36-5579lnsyxfgscxGSZ RAMEYNot AvailableStart: 01-22-2025 End: 35-35-8293Erfpljfat Result EncounterCorey April DO Work Phone: noms External Department UnsolicitedStart: 01-22-2025 End: 52-68-4014Agzdpjqgc Result EncounterCorey April DO Work Phone: noMS External Department UnsolicitedStart: 01-12-2025 End: 48-39-2342Rfuogs outpatient visit 5 minutesFakay Peterson Nomshaina Bcp ObNOMS BCP OBComment on above:GA: 8t5nGjxws: 01-12-2025 End: 67-74-8952vjblnpeeupBKG RAMEYNot AvailableStart: 09-12-2024 End: 03-40-5694Tkyysk outpatient visit 25 minutesKoffi Uriarte MD Work Phone: [facility] CareComment on above:Benign essential hypertension (Primary Dx); Seizure (Multi); Vitamin B12 deficiency; Fatigue, unspecified type; Well adult health check; Vitamin D deficiencyStart: 09-12-2024 End: 27-84-7261Sqbnpak encounter statusKoffi Uriarte MD Work Phone: [facility] Work Phone: Start: 09-12-2024 End: 58-56-0269lenpsxjmjxUZJJWES A [facility] Start: 09-12-2024 End: 60-73-6995Gjustnoua for general adult medical examination without abnormal findingsMONChildren's [facility] AmbulatoryStart: 05-03-2024 End: 60-60-3246Cxvttw outpatient visit 25 minutesNedra Calderon MD Work Phone: [facility]ennComment on above:Seizure (Multi) (Primary Dx)Start: 05-03-2024 End: 27-66-5921jrqbwdzjfjWKXXJY M [facility] AmbulatoryStart: 04-13-2024 End: 43-59-8755xxjtpzblplGarjqby HARWOODFacility:FTMCStart: 03-30-2024 End: 58-17-5925uxtsgrflwePvjy T AMESFacility:FTMCStart: 12-15-2023 End: 91-93-7029aznqgfrlabYreo ProviderFacility:[facility] Hospitaltart: 11-09-2023 End: 91-09-4069ofothhydkkUsqhdffyaC[facility] Clinic [facility] Work Phone: Start: 11-09-2023 End: 65-99-9590Niwabiy encounter procedureSentara [facility] Work Phone: Start: 08-04-2023 End: 64-24-3165lxexhfnraxXvgsx FazioFacility:[facility] Start: 08-03-2023 End: 09-36-1177Edwgtkpyv Result EncounterCorey April DO Work Phone: noms External Department UnsolicitedStart: 08-03-2023 End: 16-21-6221Uqbodnizk Result EncounterCorey April DO Work Phone: noms External Department UnsolicitedStart: 07-26-2023 End: 18-74-4487Ttoimwdoz Result EncounterCorey April DO Work Phone: noms External Department UnsolicitedStart: 07-26-2023 End: 53-94-4717Hafsrlkun Result EncounterCorey April DO Work Phone: [facility] External Department UnsolicitedStart: 07-20-2023 End: 32-03-5227Zrogtnxar Result EncounterCorey April DO Work Phone: [facility] External Department UnsolicitedStart: 07-20-2023 End: 16-53-4650Kokloputt Result EncounterCorey April DO Work Phone: [facility] External Department UnsolicitedStart: 07-11-2023 End: 76-48-4861Dfrjpslre Result EncounterCorey April DO Work Phone: [facility] External Department UnsolicitedStart: 07-11-2023 End: 15-91-4024Rcpyihhqr Result EncounterCorey April DO Work Phone: [facility] External Department UnsolicitedStart: 04-30-2023 End: 81-35-4629Uzbuus outpatient visit 15 minutesNedra Calderon MD Work Phone: [facility] CenterComment on above:Seizure (CMS/HCC) (Primary Dx)Start: 11-25-2022 End: 07-45-8375vnodpxavabVX WILLIS APRIL .Facility:Y1Vzgal: 11-16-2022 End: 15-34-6367dqmfwcvnpvTA WILLIS APRIL .Facility:D1Ploou: 50-08-7107Bewcpik tobacco non-user cad cap copd pv dmMonminesh A Chapito Work Phone: [facility] Work Phone: Start: 34-35-7571Hrdggoek preventive med est patient 18-39 yrsMonique A Chapito Work Phone: [facility] Work Phone: Start: 00-65-2883sdccrcgckwAj. Koffi Uriarte Facility:[id number]: 04-16-2022 End: 06-40-4789cwqoybdtzkFPONGH K BICANOVSKYFacility:[facility] Start: 49-04-1818Udelgxain encounterKavita Sweet DO Work Phone: OB/GynecologyComment on above:Bleeding With Start: 03-24-2022 End: 01-32-6849Nxiuzfp encounter Harsh Hassan [facility] Start: 14-73-5394Acdyahexl encounterTammy Ryan [place] Work Phone: CB/GynecologyComment on above:AppointmentStart: 54-82-8181ZBZCUXqddctk Alison Uriarte Work Phone: [phone]-Hxthlqtyy-[employer] DO Work Phone: Start: 73-69-4624gkkkukphumFxly Pattie PA-C Work Phone: OB/GynecologyComment on above:Bacteria VaginosisStart: 64-39-1140SUICCZziklhg Alison Uriarte Work Phone: [facility] Work Phone: Start: 15-62-9403Clsbvv outpatient visit 15 minutes Koffi Uriarte Work Phone: [phone]-LblqeiscrAVdirect DO Work Phone: Start: 38-24-0002Phlekv outpatient visit 15 minutes Koffi A Chapito Work Phone: [facility] Work Phone: Start: 91-89-1943MBEGZKjhuscr A Uriarte Work Phone: [facility] Work Phone: Start: 09-09-2021 End: 98-67-9293fodaptwpbhCYWJ GLASENAPPFacility:[facility] Systemtart: 07-04-2021 End: 09-95-4833adqvitxlzpYGVDG NEMETHFacility:[facility] Systemtart: 42-32-3587Tclaktdbt for gynecological examination (general) (routine) without abnormal findingsTAMMY [facility]Start: 32-39-6581Wwwjgr outpatient visit 25 minutesMonique A Chapito Work Phone: [phone]-Ijuizhvqc-[facility] Work Phone: Start: 58-47-2663Dfdal UpdateMonique A Uriarte Work Phone: [facility] [place] Work Phone: Start: 86-39-4891Yzldfc outpatient visit 25 minutes Koffi Alison Uriarte Work Phone: [facility] [place] Work Phone: Start: 58-57-8772Ekdvtqn encounter procedureMonique A Uriarte Work Phone: [facility] [place] Work Phone: Start: 62-53-5035UZXAHFmednbt A Uriarte Work Phone: [facility] [place] Work Phone: Start: 69-36-5734Yjzlc UpdateMonique A Uriarte Work Phone: [facility] [place] Work Phone: Start: 98-17-4266Uifzzv outpatient visit 25 minutes Koffiminesh Uriarte Work Phone: [facility] [place] Work Phone: Start: 86-80-0600Sowkgof encounter procedureMonique JfjqirhszzOP-Bpugwyaiw-Zmatuonu SJW DO Work Phone: Start: 99-43-7652Sageohm encounter procedureMonique ZrkjzfbphlSR-Dgqnnqwro-Repwlyxg SJ DO Work Phone: Start: 58-38-4855Hejpwpe encounter procedureMonique GjqrhnbdozYR-BWIB-[place] Work Phone: Start: 05-09-2020 End: 89-48-5192Rjcdcpq encounter procedureDANor-[facility] Hospitaltart: 05-09-2020 End: 43-03-2897Mztdvsfaqg hospital visit by physicianLorain Neuro 1EEGComment on above:ArrivedNonintractable generalized idiopathic epilepsy without status epilepticus (HCC)Start: 20-12-1347Ghsqiir encounter procedureMonique Chapito CR-AFCS-[place]jfh [place] Work Phone: Start: 04-19-2020 End: 62-41-3344Ukehhktyy department patient visitMICAMANDO Renteria [facility] Corporationtart: 04-18-2020 End: 50-31-8030Hhigllnfe department patient visitMicdaquan [place] Work Phone: [facility] EDComment on above:Seizure (HCC) (Primary Dx)Start: 14-91-4315Bonnqku encounter procedureMonique Chapito IY-TKJA-Rrvb [place] Work Phone: Start: 97-30-9922LbagxvcystRpklnbb A Richardson [facility]usPatient encounter statusKoffi Uriarte Work Phone: mp-WSPC-[place] Work Phone: Procedures DateProcedureProcedure DetailPerforming ClinicianStart: 73-13-3658JRH CBC WITH AUTO DIFFAmy Mitchel VILLEDA Work Phone: Start: 44-02-5521Obrqm dip stick/tablet rgnt non-auto w/o micrscpAmy Mitchel VILLEDA Work Phone: Start: 54-13-4907NJV, SERUM, OPEN SPINA BIFIDAAmy Mitchel VILLEDA Work Phone: Start: 15-06-2408Qfudh dip stick/tablet rgnt non-auto w/o micrscpCorey April DO Work Phone: Start: 68-07-7914MB OB ANATOMYCorey April DO Work Phone: Start: 73-86-0115JZ OB CERVICAL LENGTHCorey April DO Work Phone: Start: 38-85-7191VIQQGSWGN VAGINITIS (HTRX)Roula VILLEDA Work Phone: Start: 46-16-6781Fylqx dip stick/tablet rgnt non-auto w/o micrscpAmy Mitchel VILLEDA Work Phone: Start: 33-92-0115VYJ,APTIMA HPV,AGE GDLNAmy Mitchel VILLEDA Work Phone: Start: 58-34-9793Ospdauvombe observation [Identifier] in Cervix by Cyto stainCorey April DO Work Phone: Start: 44-58-4241Uidsm dip stick/tablet rgnt non-auto w/o micrscpCorey April DO Work Phone: Start: 25-04-4822WLI TESTCorey April DO Work Phone: Start: 01-12-2025 End: 53-98-7577Xmiri dip stick/tablet rgnt non-auto w/o micrscpCorey April DO Work Phone: Start: 668667-eeylssbrwlbghm D3 [Mass/volume] in Serum or PlasmaKoffi Uriarte MD Work Phone: Start: 91-17-9673Jaregbogk (Vitamin B12) [Mass/volume] in Serum or PlasmaMonique Alison Uriarte MD Work Phone: Start: 18-89-8610Deyaxjht blood countMonique Alison Uriarte MD Work Phone: Start: 70-42-5816Fyifqgzxjvkxp metabolic panelMonique Alison Uriarte MD Work Phone: Start: 74-56-5744Zdiqr panelMonique Alison Uriarte MD Work Phone: Start: 10-35-4781KWK WITH REFLEX TO FREE T4 IF ABNORMALMonique Alison Uriarte MD Work Phone: Start: 20-11-2728Qdtfa 1996 panel - Serum or Plasma Koffi Chapito REINOSO Work Phone: Start: 52-47-2260GG OB BPP W NON-STRESSCorey April DO Work Phone: Start: 69-54-4955LW OB BPP W NON-STRESSCorey April DO Work Phone: Start: 90-93-5265DR OB BPP W NON-STRESSCorey April DO Work Phone: Start: 39-42-4998ZH OB GROWTHCorey April DO Work Phone: Start: 70-01-1954DX OB BPP W NON-STRESSCorey April DO Work Phone: Start: 65-13-0094Dwcznsgzwzr observation [Identifier] in Cervix by Cyto stainNedra Calderon MD Work Phone: Start: 43-47-5452Gvddzlzsfml observation [Identifier] in Cervix by Cyto stainCorey April DO Work Phone: Start: 56-27-8896Dosqaedjjxi [Units/volume] in Serum or PlasmaNedra Calderon MD Work Phone: Start: 83-93-7368SWU W Auto Differential panel - Blood Koffi UriarteStart: 59-08-3422Wvygztmtrjjxd metabolic 2000 panelMonique BrooktondaleStart: 55-73-8152Kzjbrljnnpkg drug not elsewhere specifiedMonique BrooktondaleStart: 72-10-1255Irlalqqsnez observation [Identifier] in Cervix by Cyto Valente Calderon MD Work Phone: Start: 12-75-5315AyxdcoeyacrdqqbktnxxAPNNCYM MAHAJAN Start: 07-54-3502FWEOKISUX REPORTDALUIS RADHAStart: 76-50-6193CRPQBEJDI REPORTHpf ScanningStart: 46-14-0515Hxf brain brain stem w/o w/contrast material SPIKE RADHAStart: 82-02-4308Stfvtqioxkhuxiranqdg w/rec awake&drowsyDACHAN SOON-[facility] RADHAStart: 04-23-2524Xux brain brain stem w/o w/contrast materialDaluis Radha Work Phone: Start: 40-96-9046Jpfqemllhkebdgdmmrnc w/rec awake&drowsyDaluis Radha Work Phone: Start: 24-05-4230Trkky of lactateMICHELE RALOFSKY Start: 56-80-6072Gocjb of prolactinMICHELE RALOFSKYStart: 55-92-3107Wx head/brain w/o contrast materialMICHELE RALOFSKYStart: 31-85-0354Xmcaknbchp microscopic onlyMICHELE RALOFSKYStart: 61-42-7122Sxdka dip stick/tablet rgnt auto w/o microscopyMICHELE RALOFSKYStart: 61-43-2575Hmukw count complete auto&auto difrntl wbcMICHELE RALOFSKYStart: 83-84-4922Hjyviwyznjqcp metabolic panelMICHELE RALOFSKYStart: 94-78-5808Wgdpkrvhmkbk chorionic qualitativeMICHELE RALOFSKYStart: 49-65-0379SWYO NPO, NOWMICHELE RALOFSKYStart: 00-75-2301MZREJVE PRECAUTIONSMICHELE RALOFSKYStart: 29-12-2497SQLLMY LOCK IVMICHELE RALOFSKYStart: 66-67-4126Rgkhy of lactateMichael S [place] Work Phone: Start: 47-97-5327Nccfxwdaed microscopic onlyMichael S [place] Work Phone: Start: 56-56-8451Ygxrw dip stick/tablet rgnt auto w/o microscopyMichael S [place] Work Phone: Start: 49-64-4152Ulurg count complete auto&auto difrntl wbcMichael S [place] Work Phone: Start: 21-31-5873Vntfunhyqzsrs metabolic panelMichael S [place] Work Phone: Start: 62-28-8887Oiphulyqzkam chorionic qualitative Tu S [place] Work Phone: History of No history of surgeryMonique ChapitoNo history of surgeryMonique A Uriarte Work Phone: Plan of Treatment DateCare ActivityDetailAuthorStart: 84-14-0626Bstbod Vaccines (1 of 2)Zoster Vaccines (1 of 2)[facility]: 22-20-4689CGcE/Tdap/Td Vaccines (9 - Td or Tdap)DTaP/Tdap/Td Vaccines (9 - Td or Tdap)[facility]: 50-57-6549Mljly panelLipid PanelUnHocking Valley Community Hospital: 06-03-7396Hvoycjxym for malignant neoplasm of cervixNOMS HealthcareStart: 37-58-9483WUdN/Tdap/Td Vaccines (8 - Td or Tdap) DTaP/Tdap/Td Vaccines (8 - Td or Tdap)[facility] HospitalStgrand cane: 05-85-6587Uetpquedu for malignant neoplasm of cervixUnHocking Valley Community Hospital: 11-67-3470Bogrbnbbk for malignant neoplasm of cervixNOMS HealthcareStart: 05-29-2025 End: 77-87-7408Kadopgf encounter procedureNOMS Giselle OBGYNComment on above: ArrivedStart: 05-07-2025 End: 63-22-7703Hqgbuvi encounter yhweqbfen21/20/2025 2:00 PM EDT Office Visit [address] [place] [phone] [place] [address] [place] [address] [facility]ennStart: 04-30-2025 End: 14-37-4256HCN panel - Blood by Automated countCBC Lab Routine Diabetes mellitus screening Expected: 04/30/2025 (Approximate), Expires: 04/30/2026[facility] Work Phone: comment on above:Expected: 04/30/2025 (Approximate), Expires: 04/30/2026Start: 04-30-2025 End: 61-75-4032Lwvxisicvyn of glucose 1 hour after glucose challenge for glucose tolerance testGlucose tolerance, 1 hour Lab Routine Diabetes mellitus screening Expected: 04/30/2025 (Approximate), Expires: 04/30/2026[facility] HealthcareComment on above:Expected: 04/30/2025 (Approximate), Expires: 04/30/2026Start: 04-30-2025 End: 87-64-7431Ydmishb encounter clxzhawdf28/13/2025 9:50 AM EDT Routine [facility] Giselle LAYTON [address] [place], [id number] Roula Grullon PA [address] [place] [address] [facility] G[facility]elle OBGYNStart: 04-04-2025 End: 43-38-9142Zvqhbhj encounter jwfrafzhc54/17/2025 3:10 PM EDT Routine [facility] G[facility]elle WOODGYN [address] [place], [id number] Willis Chen DO [address] [place] [address] NOMShaina [place] OBGYNStart: 91-91-1037UGBZE- 19 Vaccine ( season)COVID-19 Vaccine ( season)[facility]OMS HealthcareStart: 17-79-6263Fivrtsgot vaccinationInfluenza Vaccine (#1)[facility] HealthcareStart: 03-14-2025 End: 15-63-4841Paoofjvjvtpq / ancillary services brqofrgdug99/27/2025 3:00 PM EDT Ancillary Procedure [facility]BG[facility] [address] [place] [address] KSIL Giselle OBGYNStart: 03-07-2025 End: 30-65-4386Cmioyns encounter procedureNOMS [place] OBGYNComment on above: ArrivedStart: 03-07-2025 End: 93-43-3301Qbjao fetoprotein, maternalAlpha fetoprotein, maternal Lab Routine Second trimester ([facility]) 16 weeks gestation of ([facility]) Expected: 03/07/2025 (Approximate), Expires: 09/07/2025[facility] Comment on above:Expected: 03/07/2025 (Approximate), Expires: 09/07/2025Start: 03-07-2025 End: 68-39-7161WT for pregnancyUS OB 14+ weeks anatomy scan Imaging Routine Screening, , for anatomic survey ([facility]) Expected: 03/07/2025, Expires: 06/07/2025[facility] HealthcareComment on above:Expected: 03/07/2025, Expires: 06/07/2025Start: 02-21-2025 End: 78-27-5966Dsmuckhxztic / ancillary services cuojikgqel38/06/2025 3:00 PM EDT Ancillary Procedure [facility] [place] [facility] [address] [place] [address] ULMX Giselle OBGYNStart: 02-12-2025 End: 87-86-5891Ioxgtlt encounter znaywnasn11/28/2025 2:20 PM EDT Office Visit [facility] [address] [place] [phone] [place] [address] [address] [facility] CareStart: 02-07-2025 End: 94-98-0878Fwfafnr encounter procedureNOHEALDSBURG DISTRICT [facility]OSPITAL OBComment on above:Arrived Start: 02-07-2025 End: 64-40-6889VJ for pregnancyUS OB less than 14 weeks early Imaging Routine Missed menses Subchorionic hematoma in second trimester, single or unspecified fetus ([facility]-HCC) Expected: 02/07/2025, Expires: 05/10/2025[facility] Work Phone: comment on above:Expected: 02/07/2025, Expires: 05/10/2025Start: 02-01-2025 End: 36-24-5864Ohnykxt encounter vcmdbqlgi14/17/2025 9:20 AM EDT Office Visit [facility] [address] [place] [address] Roula Grullon PA [address] [place] [address] [facility]SANG[facility] OBComment on above:ArrivedStart: 01-12-2025 End: 82-76-4197HSC/RhABO/Rh Lab Routine Missed menses , unspecified gestational age ([facility]) Expected: 01/12/2025 (Approximate), Expires: 01/12/2026[facility] HealthcareComment on above:Expected: 01/12/2025 (Approximate), Expires: 01/12/2026Start: 01-12-2025 End: 39-75-8161Ghfcl type and Indirect antibody screen panel - BloodType and screen Lab Routine Missed menses , unspecified gestational age ([facility]- HCC) Expected: 01/12/2025 (Approximate), Expires: 01/12/2026[facility] Work Phone: comment on above:Expected: 01/12/2025 (Approximate), Expires: 01/12/2026Start: 01-12-2025 End: 89-23-3047Dmchj of abuse panel - Urine by Screen methodRapid drug screen, urine Lab Routine , unspecified gestational age ([facility]) Encounter for supervision of normal first in first trimester ([facility]) Expected: 01/12/2025 (Approximate), Expires: 01/12/2026NOMS HealthcareComment on above: Expected: 01/12/2025 (Approximate), Expires: 01/12/2026Start: 05-03-2024 End: 14-95-2315tonbVNKcaaa [Mass/volume] in Serum or PlasmaLamotrigine level Lab Routine Seizure (Multi) Expected: 05/03/2024 (Approximate), Expires: 05/03/2025 [facility] Service Area Work Phone: comment on above:Expected: 05/03/2024 (Approximate), Expires: 05/03/2025Start: 40-09-5048SMNID-19 Vaccine ( season)COVID- 19 Vaccine ( season)[facility]: 74-33-0332LBUXY-19 Vaccine ( season)COVID-19 Vaccine ( season)[facility]: 02-90-4621Liqecofwk vaccination Influenza Vaccine (#1)[facility]: 10-02-2023 Screening for malignant neoplasm of cervixHPV/CotestNOMS HealthcareStart: 33-40-0751CKPBIMQI, Provider: Koffi Uriarte, Status: Pen, Time: 9:00 AM PHYSICAL, Provider: Koffi Uriarte, Status: Pen, Time: 9:00 HTLG-VOLY-[place] Work Phone: Start: 08-02-2023 End: 83-12-3551Ujkfjex encounter /15/2024 9:00 AM EST Office Visit [facility] [address] [place] [phone] [place] [address] [place] [address] [facility] CenterStart: 68-46-8676AGY TESTINGPAP TESTINGChildren's Hospital of Columbustart: 17-76-6483Kjjhbtdsz for malignant neoplasm of cervixTrinity Health System [facility]: 12-24-2022 VIRFUVHOME, Provider: Nedra Calderon, Status: Pen, Time: 10:00 AMVIRFUVHOME, Provider: Nedra Calderon, Status: Pen, Time: 10:00 MMHM-Viadhjqnr-Inrzmihg GetBulb DO Work Phone: Start: 87-82-0242TNQSYDYY, Provider: Koffi Uriarte, Status: Pen, Time: 9:50 AMPHYSICAL, Provider: Koffi Uriarte, Status: Pen, Time: 9:50 AVOC-GNHJ-Hnhz [place] Work Phone: Start: 03-24-2022 End: 15-46-1184Aawgudguzebusllrpp.beta subunit [Units/volume] in Serum or Plasma HCG QUANTITATIVE Lab Routine Bleeding in early Expected: 03/24/2022, Expires: 05/24/2022[facility] Work Phone: Comment on above:Expected: 03/24/2022, Expires: 05/24/2022tart: 52-81-6274Xozlksujk vaccinationINFLUENZA (#1)[facility] Start: 93-93-0553Fgxxefj stimulating hormone measurementComanche County Memorial Hospital – LawtonStart: 02-48-3440WPKSAISHYL, Provider: Nedra Calderon, Status: Pen, Time: 11:30 AMFUVGENERAL, Provider: Nedra Calderon, Status: Pen, Time: 11:30 GSFC-Hfxfgliuf-Zrmwmuuq SJW DO Work Phone: Start: 27-91-4094OXK, Provider: Koffi Uriarte, Status: Pen, Time: 1:00 PMFUV, Provider: Koffi Uriarte, Status: Pen, Time: 1:00 AKFC-HOWL-Lmlb [place] Work Phone: Start: 22-94-2498OIBME-19 VACCINE (3 - Booster for Pfizer series)COVID-19 VACCINE (3 - Booster for Pfizer series)[facility] Start: 96-39-6445SXRQDOOLTM, Provider: Nedra Calderon, Status: Pen, Time: 2:00 PMFUVGENERAL, Provider: Nedra Calderon, Status: Pen, Time: 2:00 CWTR-AKPL-Ucql [place] Work Phone: Start: 70-30-2633MWBWVTEJJA, Provider: Nedra Calderon, Status: Pen, Time: 11:00 AMFUVGENERAL, Provider: Nedra Calderon, Status: Pen, Time: 11:00 JCHV-KEVG-Ezzp [place] Work Phone: Start: 58-99-8614UEK, Provider: Koffi Uriarte, Status: Pen, Time: 3:40 PMFUV, Provider: Koffi Uriarte, Status: Pen, Time: 3:40 KRTL-JJHV-Dlnq [place] Work Phone: Start: 87-14-0216QHJ, Provider: Koffi Uriarte, Status: Pen, Time: 2:00 PMFUV, Provider: Koffi Uriarte, Status: Pen, Time: 2:00 YJPX-AQBP-Ovqv [place] Work Phone: Start: 05-78-0296RXZOJ-19 Vaccine (3 - Pfizer series) COVID-19 Vaccine (3 - Pfizer series)[facility]Start: 15-54-9230HZV Vaccines (1 - 3-dose SCDM series)HPV Vaccines (1 - 3-dose SCDM series)[facility]: 49-96-3167Mkvxujkwq vaccinationFlu vaccine (#1) [facility]: 53-62-9718YVuP/Tdap/Td vaccine (7 - Td)DTaP/Tdap/Td vaccine (7 - Td)[facility]: 88-70-4177Dfejc microalbumin profile DTAP,TDAP,TD (7 - Td or Tdap)[facility] Columbustart: 40-53-8212Slpylswfh for malignant neoplasm of cervixUnCleveland Clinic Avon HospitalStgrand cane: 2012 Hepatitis B Vaccines (1 of 3 - 19+ 3-dose series)Hepatitis B Vaccines (1 of 3 - 19+ 3-dose series)[facility] HospitalStart: 91-05-1597UBFPFIGAJ C SCREENINGHEPATITIS C SCREENINGChildren's Hospital of Columbustart: 17-30-2770Aewaocbet C screeningHepatitis C ScreeningTr[facility] Health [facility]: 75-93-0558QFJ SCREENINGHIV SCREENINGChildren's Hospital of Columbustart: 25-50-2024SUG screeningHIV screenFulton County Health Center: 36-99-7417Jkiorqp of varicella vaccinationVaricella Vaccines (1 of 2 - 13+ 2-dose series)[facility] HospitalStart: 43-61-3203Xkdcgzinv vaccination Varicella Vaccines (1 of 2 - 13+ 2-dose series)[facility] Start: 34-57-5112Ngcdq depression screening assessmentDEPRESSION SCREENING [facility] Columbustart: 33-17-5948LLS vaccine (1 - 2-dose series)HPV vaccine (1 - 2-dose series)[facility]: 42-25-2869YXvI/Tdap/Td Vaccines (1 - Tdap)DTaP/Tdap/Td Vaccines (1 - Tdap)[facility] HospitalStgrand cane: 12-23-9008Izcvcywcg vaccinationVaricella Vaccines (1 of 2 - 2-dose childhood series)[facility]: 56-37-9327VZB Vaccines (1 of 1 - Standard series) MMR Vaccines (1 of 1 - Standard series)[facility] HospitalStart: 16-47-4814Ktiwzubes vaccine (1 of 2 - 2-dose childhood series)Varicella vaccine (1 of 2 - 2-dose childhood series)[facility]: 78-68-4437KAT screeningHIV Screening [facility]: 35-93-7721Qlreg panelLipid Panel [facility]: 97-91-6408Ltolos Adult PhysicalYearly Adult PhysicalUnCleveland Clinic Avon HospitalBacteria identified in Urine by CultureUrine culture Microbiology Routine Missed menses Ordered: 01/12/2025[facility] HealthcareComment on above:Ordered: 01/12/2025BC W Auto Differential panel - BloodCBC and differential Lab Routine Missed menses , unspecified gestational age ([facility]) Ordered: 01/12/2025[facility] HealthcareComment on above: Ordered: 01/12/2025HLAMYDIA TRACHOMATIS (GENITO/STI)CHLAMYDIA TRACHOMATIS (GENITO/STI) Lab Routine STD exposure Ordered: 03/07/2025[facility] HealthcareComment on above:Ordered: 03/07/2025 End: 99-77-8300GI Head WO ContrastCT Head WO Contrast Imaging STAT Once for 1 Occurrences starting 04/18/2020 until 04/18/2020[facility], KYComment on above:Once for 1 Occurrences starting 04/18/2020 until 04/18/2020CT Head WO ContrastCT Head WO Contrast Imaging STAT 04/18/2020 11:15 PM EDOhio[facility], KYCytology Cervical or vaginal smear or scraping studyPap Smear Pathology and Cytology Routine Well woman exam with routine gynecological exam Ordered: [facility] HealthcareComment on above:Ordered: 03/07/2025Hemoglobin A1c/Hemoglobin.total in BloodHemoglobin A1c Lab Routine Missed menses , unspecified gestational age ([facility]) Ordered: 01/12/2025[facility] HealthcareComment on above:Ordered: 01/12/2025Hepatitis B virus surface Ag [Presence] in Serum or Plasma by ImmunoassayHepatitis B surface antigen Lab Routine Missed menses , unspecified gestational age ([facility]) Ordered: 01/12/2025[facility] HealthcareComment on above:Ordered: 01/12/2025Hepatitis C virus Ab [Presence] in Serum or Plasma by ImmunoassayHepatitis C antibody Lab Routine Missed menses , unspecified gestational age ([facility]) Ordered: 01/12/2025[facility] HealthcareComment on above:Ordered: 01/12/2025HIV-1/HIV-2 antigen/antibody combination immunoassayHIV-1 and HIV-2 antibodies Lab Routine Missed menses , unspecified gestational age ([facility]) Ordered: 01/12/2025[facility] HealthcareComment on above:Ordered: 01/12/2025Human papilloma virus DNA [Presence] in Unspecified specimen by Probe with amplificationHPV DNA probe, amplified Microbiology Routine Well woman exam with routine gynecological exam Ordered: 03/07/2025[facility] HealthcareComment on above:Ordered: 03/07/2025Neisseria gonorrhoeae DNA [Presence] in Unspecified specimen by HUMERA with probe detection Neisseria gonorrhea DNA probe, direct Lab Routine STD exposure Ordered: 03/07/2025[facility] HealthcareComment on above:Ordered: 03/07/2025 End: 49-91-2197GvodifmzjAiyqrmcpb Lab STAT One Time for 1 Occurrences starting 04/18/2020 until 04/18/2020MerSelect Medical [facility], KYComment on above:One Time for 1 Occurrences starting 04/18/2020 until 04/18/2020ProlactinProlactin Lab STAT 04/18/2020 11:17 PM [facility], KYReagin Ab [Presence] in Serum by RPR RPR Lab Routine Missed menses , unspecified gestational age ([facility]) Ordered: 01/12/2025[facility] HealthcareComment on above:Ordered: 01/12/2025Rubella antibody, IgGRubella antibody, IgG Lab Routine Missed menses , unspecified gestational age ([facility]) Ordered: 01/12/2025[facility] HealthcareComment on above:Ordered: 01/12/2025SURESWAB(R) ADVANCED VAGINITIS PLUS, TMASURESWAB(R) ADVANCED VAGINITIS PLUS, TMA Pathology and Cytology Routine Vaginal discharge Ordered: 03/07/2025[facility] Healthcare Work Phone: comment on above:Ordered: 03/07/20255802AH-ICNH-Rvcm [place] Work Phone: cleveland ClinicNEGATED: Highlighted row has been ruled out!Planned Goals not unaagbhlgkRL-GBSW-Hdaf [place] Work Phone: Immunizations Immunization DateImmunizationNotesCare JrnorgqaKukduaxm47-90-0337ztgtfssqy B vaccine, adult dosageKoffi Uriarte MD Work Phone: [facility] Work Phone: [phone] toxoid, reduced diphtheria toxoid, and acellular pertussis vaccine, adsorbedKoffi Uriarte MD Work Phone: [facility] Work Phone: [phone], injectable, quadrivalent, preservative freeMonique Chapito REINOSO Work Phone: [facility]10-05-2023influenza virus vaccine, unspecified formulationNedra Calderon MD Work Phone: [facility] Work Phone: [phone]bhnqle, injectable, quadrivalent, preservative freeMonique A Chapito Work Phone: mp-WSPCZong Work Phone: [phone], injectable, quadrivalent, preservative freeMonique A Uriarte Work Phone: mp-WSPCZong Work Phone: [phone]-AuvQCrtx COVID-19 Vacc 30 MCG/0.3ML Intramuscular SuspensionMonique A Chapito Work Phone: mp-ReadOz Work Phone: [phone]-SuxXOuhp COVID-19 Vacc 30 MCG/0.3ML Intramuscular SuspensionMonique A Chapito Work Phone: mp-WSPCVoltaireCommercial Point Work Phone: [phone], injectable, [place]in [place] Canine Kidney, preservative free, quadrivalentMonique A Chapito Work Phone: mp-WSPCZong Work Phone: [phone], injectable, quadrivalent, contains preservativeMonique A Chapito Work Phone: mp-WSPCZong Work Phone: [phone] toxoid, reduced diphtheria toxoid, and acellular pertussis vaccine, adsorbedMonique A Uriarte Work Phone: mp-WSPCCuponzoteCommercial Point Work Phone: [phone], injectable, quadrivalent, preservative freeLee'S Summit Hospital Alison ClementeUriarte Work Phone: mp-WSPCCuponzoteCommercial Point Work Phone: [phone]qv polysaccharide vaccine, 23 valentMonst. luke's hospital A Uriarte Work Phone: mp-WSPCFast Track AsiaCommercial Point Work Phone: [phone] skin test; purified protein derivative solution, intradermalClarion Hospital, [place] 76-90-3190awacuzhytf skin test; purified protein derivative solution, intradermalClarion Hospital, IJ90-15-5800ynogduy toxoid, reduced diphtheria toxoid, and acellular pertussis vaccine, adsorbedMansfield Hospital08-10-2007meningococcal polysaccharide (groups A, C, Y and W-135) diphtheria toxoid conjugate vaccine (MCV4P)[facility], UM04-04-9748Zwjsbijblxbym, MCV4, unspecified conjugate formulation(groups A, C, Y and W-135)[facility] 97-63-5834pazqsacqpv, tetanus toxoids and acellular pertussis vaccineMansfield Hospital08-25-1999diphtheria, tetanus toxoids and acellular pertussis vaccine, unspecified formulationWilson Medical Center Uriarte Work Phone: mp-WSPCCuponzoteCommercial Point Work Phone: [phone] influenzae type b vaccine, HbOC conjugateMansfield Hospital08-25-1999measles, mumps and rubella virus vaccineMansfield Hospital08-25-1999poliovirus vaccine, inactivatedClarion Hospital, AK72-15-2364yprbphhnj poliovirus vaccine, live, oralClarion Hospital, [id number], tetanus toxoids and acellular pertussis vaccineMansfield Hospital06-22-1995diphtheria, tetanus toxoids and acellular pertussis vaccine, unspecified formulationLee'S Summit Hospital A Chapito Work Phone: [employer] Work Phone: [phone]vshwqxgi influenzae type b vaccine, conjugate unspecified formulationClarion Hospital, [place] 67-31-2402tqcsvlawlwq influenzae type b vaccine, PRP-OMP conjugateLee'S Summit Hospital A Uriarte Work Phone: [employer] Work Phone: [phone], unspecifiedCl[facility]ion Hospital, YS14-64-3941xuwvnqu, mumps and rubella virus vaccineMansfield Hospital04-06-1995poliovirus vaccine, inactivatedMansfield Hospital12-01-1994hepatitis B vaccine, pediatric or pediatric/adolescent dosageLee'S Summit Hospital A Uriarte Work Phone: cSelect [facility], Edwin ShawHagvnq36-57-4896htvlbyzyo B vaccine, unspecified formulationCl[facility], GG89-71-6589 diphtheria, tetanus toxoids and acellular pertussis vaccineBelmont Behavioral Hospital, SE27-46-8559owyjqqjfhu, tetanus toxoids and pertussis vaccine [facility]09-29-1994haemophilus influenzae type b vaccine, conjugate unspecified formulationCl[facility], EZ11-56-2982klwumircake influenzae type b vaccine, HbOC conjugateSara Glassilvia PA-C Work Phone: [facility] HospitalDskynp50-01-7730ihgkffkyrrh influenzae type b vaccine, PRP-OMP conjugateLee'S Summit Hospital A Uriarte Work Phone: [employer]-WSPCFast [employer] AsiaCom[employer] Work Phone: [phone], unspecifiedCl[facility], RA20-25-0957maoldrdqcm vaccine, inactivatedMicMemorial Health System09-29-1994trivalent poliovirus vaccine, live, oralCl[facility], FV45-71-6527itjnqedujg, tetanus toxoids and acellular pertussis vaccineClarion Hospital, [place]57-75-2161 diphtheria, tetanus toxoids and pertussis vaccineMansfield Hospital07-28-1994haemophilus influenzae type b vaccine, conjugate unspecified formulationCl[facility], PH24-03-6750umxwlrlxhew influenzae type b vaccine, HbOC conjugateSara Glasenapp PA-C Work Phone: [facility] HospitalXvwlwf88-69-2603efbjlwywidl influenzae type b vaccine, PRP-OMP conjugateMonique A Uriarte Work Phone: [employer] Work Phone: [phone], unspecifiedCl[facility], ZJ81-81-2303nfjffthshr vaccine, inactivatedWestern Reserve Hospital07-28-1994trivalent poliovirus vaccine, live, oralCl[facility], NM95-71-4675jexbhbyjb B vaccine, pediatric or pediatric/adolescent dosageMonique A Uriarte Work Phone: c[facility], Edwin ShawYjvdsh53-76-1809msxvinzzr B vaccine, unspecified formulationCl[facility], QL96-18-8674 diphtheria, tetanus toxoids and acellular pertussis vaccineSh[facility] HP02-63-9320wcprvnxcer, tetanus toxoids and pertussis vaccine [facility]05-19-1994haemophilus influenzae type b vaccine, conjugate unspecified formulationCl[facility], SU24-98-1644drpiweukhak influenzae type b vaccine, HbOC conjugateSara Glasenapp PA-C Work Phone: [facility] HospitalKnrpnd27-33-9307cfnodcphqkt influenzae type b vaccine, PRP-OMP conjugateMonique A Uriarte Work Phone: [employer] Work Phone: [phone]bdzvc B vaccine, pediatric or pediatric/adolescent dosageMonminesh Uriarte Work Phone: c[facility], [facility] ShawCcwxav13-03-6505djbfoowod B vaccine, unspecified formulationCl[facility], TJ31-59-2917Req, unspecifiedCl[facility], QI31-36-2546wumfvuatsh vaccine, inactivatedMicBlanchard Valley Health System05-19-1994trivalent poliovirus vaccine, live, oralMicNorristown State [facility], [place] Payers DatePayer CategoryPayerPolicy [id number] [facility] [id number] 14-59-3338Kcva-grh46-65-5764Mylbnwj Care (Private) [id number]0-8026Dyhmhqx Health [id number] Health Insurance [id number]ash82-42-6522 UnknownMMO MMO [employer] PLUS [id number] 2020-Present [phone] [address] [place] [address] [id number] [id number] [id number] 2.16.840.1.932574.3.57[id number] 2.16.840.1.340477.3.57[id number] 2..840.1.315421.3.57[id number] 2.840.1.332556.3.57[id number] 2.840.1.868164.3.57[id number] 2.840.1.785960.3.57[id number] 2.840.1.286175.3.57[id number] 2.840.1.643806.3.579.[id number] 2.840.1.892527.3.57[id number] 2.840.1.252165.3.57[id number] 2.840.1.504807.3.57[id number] 2.840.1.808134.3.57[id number] 2.840.1.100143.3.57[id number] 2.840.1.451208.3.57[id number] 2.16.840.1.807465.3.57[id number] 2.16.840.1.487252.3.57[id number] 2.16.840.1.958246.3.57[id number] 2.16.840.1.973358.3.579.2.349759-52-2579Dbzdyus1985 2.16.840.1.427861.3.57[id number] 2.16.840.1.155890.3.579.2.[id number] 1.2.840.697613.1.13.239.2.[id number] 2.16.840.1.2845[id number] 7e45eh3s-2u1t-62ag-02f2-o91k90sxmg67 Social History DateTypeDetailFacilityStart: 04-18-2020 End: 80-92-1977Cnmunzu smoking status NHISNever smokerChildren's Hospital of Columbustart: 04-18-2020 End: 57-00-6874Vcqctsf use and exposureNever usedFulton County Health Center: 04-18-2020 End: 61-89-2527Oosokkb intakeCurrent drinker of alcohol (finding)[facility]: 31-29-3805Hkbreul SDOH Mfqkfcusi1PckajFulton County Health Center: 89-01-7015Orcqwtm SDOH Food Eikfg3TuevmFulton County Health Center: 73-20-2253Dxusbjv SDOH Transport Bpo2EvixnFulton County Health Center: 80-75-3930Geyslwk Comment occasionallyFulton County Health Center: 10-68-1537Txe Assigned At BirthNot on [place], [place]: 04-20-2023 End: 23-08-8275Psvjhcxr to SARS-CoV-2 (event)Not [facility] Hospitalart: 05-03-2024 End: 39-36-0459Lekma smokerNever dtcnucWH-[facility] Work Phone: Start: 39-16-1843Tdvaazm smoking statusNeverPremier Health Miami Valley Hospital Northtart: 05-03-2024 End: 45-40-1419Msz Assigned At [facility]tart: 03-67-7319Qrn Assigned At [facility] Hospitaltart: 19-72-8097Nxeimsitj beverage intakeEx-drinker (finding)[facility] Work Phone: How often to you have a drink containing alcohol?Never [facility] Work Phone: Start: 04-23-2024 End: 39-03-7590Pflesmdw to SARS-CoV-2 (event)YesClinton Memorial HospitalStart: 75-65-3272Fruizsh CommentSociallyCl[facility] Work Phone: Tobacco smoking status NHISTobacco smoking consumption unknownNOSD HealthcareStart: 31-13-5798TycgqrurfNSPQ HealthcareStart: 36-34-3460Vaxxsd identityIdentifies as female gender (finding)[facility] Start: 85-61-9888Igrvxl orientationHeterosexual (finding)[facility] HealthcareNEGATED: Highlighted row--EQ-GBXA-CigsReadOz Work Phone: NEGATED: Highlighted rowStart: NINFHistory of tobacco usePassive smokerClinton [facility] Hospital Work Phone: Goals DatePatient GoalDesired Activity/StatePersonal health goal Functional Status DateAssessmentResultFacilityNEGATED: Highlighted rowFunctional performance Functional status health issues are not documented CggoqedCC-[facility]W[place] Work Phone: Mental Status DateAssessmentResultFacilityNEGATED: Highlighted rowCognitive function [Interpretation]Cognitive status health issues are not documented Disease [facility] Work Phone: Clinical Notes 08-09-2017 to 04-30-2025 Note Date & SpwhViecMykvmfjt31-39-9694 History of Present illness Narrative* CHRISTIANA Mills [...] Problems Diagnosis Date Noted Hypertension 01/14/2023 Seizure ([facility]) 07/09/2021 Breech presentation, no version ([facility]) 07/29/2023 Resolved Ambulatory Problems Diagnosis Date [...] ASSESSMENT & PLAN ICD-10-CM 1. Second trimester ([facility]) Z34.92 2. 24 weeks gestation of ([facility]) Z3A.24 3. Hypertension, unspecified type I10 4. Seizure ([facility]) R56.9 Return OB: Patient presents today for a routine obstetrics appointment. Patient is currently 24w0d . Patient states she is doing well but has complaints of being tired due to current . Patient has verbalizes frequent movement. labor precautions was discussed/given and patient was instructed to perform kick counts three times a day. Pt was given 1-hr glucose order to obtain at [facility]. No orders of the defined types were placed in this encounter. Follow Up: Patient is to return to office in 4 weeks for routine OB appointment. Documented by Kim Sousa MA on behalf of: CHRISTIANA Mills documented in this encounterLiberty HospitalKwzzrtgwmk78-56-7028 History of Present illness Narrative* Willis Chen [...] Problems Diagnosis Date Noted Hypertension 01/14/2023 Seizure ([facility]) 07/09/2021 Breech presentation, no version ([facility]) 07/29/2023 Resolved Ambulatory Problems Diagnosis Date Noted [...] nursing note reviewed. Exam conducted with a parent aide present. Vitals: Estimated body mass index is 27.04 kg/m as calculated from the following: Height as of 11/16/22: 5' 9 . Weight as of this encounter: 183 lb 1.9 oz. BP: 110/70 Patient's last menstrual period was 11/13/2024. Assessment/Plan Encounter Diagnosis: ICD-10-CM 1. 20 weeks gestation of ([facility]) Z3A.20 POCT urinalysis dipstick manually resulted 2. Second trimester ([facility]) Z34.92 POCT urinalysis dipstick manually resulted Return [...] of: Willis Chen DO documented in this encounterLiberty HospitalSfahrwpeqb10-94-2800 History of Present illness Narrative* CHRISTAINA Mills - 03/07/2025 3:20 PM EDT Reason [...] Problems Diagnosis Date Noted Hypertension 01/14/2023 Seizure ([facility]) 07/09/2021 Breech presentation, no version ([facility]) 07/29/2023 Resolved Ambulatory Problems Diagnosis Date Noted [...] HPV DNA probe, amplified 2. Second trimester ([facility]) Z34.92 POCT urinalysis dipstick manually resulted Alpha fetoprotein, maternal Alpha fetoprotein, maternal 3. 16 weeks gestation of ([facility]) Z3A.16 POCT urinalysis dipstick manually resulted Alpha fetoprotein, maternal Alpha fetoprotein, maternal 4. Vaginal discharge N89.8 SURESWAB(R) ADVANCED VAGINITIS PLUS, TMA 5. STD exposure Z20.2 CHLAMYDIA TRACHOMATIS (GENITO/STI) Neisseria gonorrhea DNA probe, direct 6. Screening, , for anatomic survey ([facility]) Z36.89 OB 14+ weeks anatomy scan Return [...] behalf of: CHRISTIANA Mills documented in this encounterLiberty HospitalRwnfrrmkjv56-37-9016 History of Present illness Narrative* Cyndi Andrade, SHIPPING RECEIVING CLERK - 02/07/2025 3:10 PM EDT Reason for [...] Problems Diagnosis Date Noted Hypertension 01/14/2023 Seizure ([facility]) 07/09/2021 Breech presentation, no version ([facility]) 07/29/2023 Resolved Ambulatory Problems Diagnosis Date [...] nursing note reviewed. Exam conducted with a parent aide present. Vitals: Estimated body mass index is 26.11 kg/m as calculated from the following: Height as of 11/16/22: 5' 9 . Weight as of this encounter: 176 lb 12.8 oz. BP: 114/74 Patient's last menstrual period was 11/13/2024. ASSESSMENT & PLAN ICD-10-CM 1. First trimester ([facility]) Z34.91 POCT urinalysis dipstick manually resulted 2. 12 weeks gestation of ([facility]) Z3A.12 POCT urinalysis dipstick manually resulted New [...] or undercooked meat, and stay away [facility]. Patient has been consulted regarding any further do's and don'tsof . Patient voiced understanding and all questions and concerns were answered. Orders Placed This Encounter Procedures POCT urinalysis dipstick manually resulted Follow Up: Patient is to return in 4 weeks for routine OB appointment. Documented by Cyndi Andrade LPN on behalf of: Willis Chen DO documented in this encounterLiberty HospitalVylhxzmgch96-43-0990 History of Present illness Narrative* CHRISTIANA Mills [...] Problems Diagnosis Date Noted Hypertension 01/14/2023 Seizure ([facility]) 07/09/2021 Breech presentation, no version ([facility]) 07/29/2023 Resolved Ambulatory Problems Diagnosis Date [...] ASSESSMENT & PLAN ICD-10-CM 1. First trimester ([facility]) Z34.91 2. 11 weeks gestation of ([facility]) Z3A.11 Patient is presents for er follow [...] behalf of: CHRISTIANA Mills documented in this encounterLiberty HospitalYxjhkialmr20-31-0614 History of Present illness Narrative* Damaris Agosto [...] oz F CS-LTranv JACKSON Complications: Breech presentation ([facility]) 1 AB Obstetric Comments Last pap smear date 2 years ago Current Medications: has a current medication list which includes the following prescription(s): labetalol, lamotrigine,and mv-min-fe fum-fa-dha. Medical History: Active Ambulatory Problems Diagnosis Date Noted Hypertension 01/14/2023 Seizure ([facility]) 07/09/2021 Breech presentation, no version ([facility]) 07/29/2023 Resolved Ambulatory Problems Diagnosis Date Noted [...] dipstick manually resulted , unspecified gestational age ([facility]) - Type and screen; Future - ABO/Rh; Future - CBC and differential - Hemoglobin A1c - RPR - Rubella antibody, IgG - Hepatitis B surface antigen - Hepatitis C antibody - HIV-1 and HIV-2 antibodies - Rapid drug screen, urine; Future Encounter for supervision of normal first in first trimester ([facility]) - Rapid drug screen, urine; Future OB [...] or undercooked meat, and stay away from [facility]. Patient has also been advised to [...] by: Damaris Agosto MA documented in this encounterLiberty HospitalUdpbhhfcdt72-74-8284 Evaluation + Plan note* Assessment & Plan [...] Primary Care - PCP - Established; Future [facility] Work Phone: 1(738) 269-513502-25-2025 Evaluation + Plan note* Assessment & Plan Note - Koffi Uriarte MD - 09/12/2024 12:40 PM ESTAssociated Problem(s): Seizure (Multi) Good control. Follow up with neuro. Continue meds [facility] Work Phone: 1(288) 420-364802-25-2025 Evaluation + Plan note* Assessment & Plan Note - Koffi Uriarte MD - 09/12/2024 12:40 PM ESTAssociated Problem(s): Vitamin B12 deficiency [facility] Work Phone: 1(228) 407-680502-25-2025 Evaluation + Plan note* Assessment & Plan Note - Koffi Uriarte MD - 09/12/2024 12:40 PM ESTAssociated Problem(s): Fatigue We talked about healthy habits and sleep hygiene Orders: CBC; Future TSH with reflex to Free T4 if abnormal; Future Vitamin B12; Future [facility] Work Phone: 1([phone]) 209-971702-25-2025 History of Present illness Narrative* Koffi Uriarte MD - 09/12/2024 12:40 PM EST Subjective Princess Guerrero is a 28 y.o. female who presents for Follow-up (Follow from bank guard appt for elevated BP). Here for a [...] mg daily or vitamins. documented in this [facility] Work Phone: 1(828) 963-699502-25-2025 Instructions* Patient Instructions* Koffi Uriarte MD - 09/12/2024 12:40 PM EST Please start back on folic acid 1 mg daily or vitamins. documented in this [facility] Work Phone: 1(287) 568-830902-25-2025 Miscellaneous Notes* Assessment & Plan Note - Kfofi Uriarte MD - 09/12/2024 12:40 PM ESTAssociated [...] Future Vitamin B12; Future documented in this [facility] Work Phone: 1(505) 682-587510-16-2024 History of Present illness Narrative* Nedra Calderon MD - 05/03/2024 9:30 AM EDT Images from the original note were not included. Neurological [facility] Referring: No ref. provider found PCP: [...] further seizures. She is now working for [employer] as the health department wanted to transition [...] in upper and lower extremities. Coordination Right: Hyuwof-ij-ndrp normal.Left: Vodbjh-lt-yfen normal. Physical Exam Eyes: Extraocular Movements: Extraocular [...] file for this visit. documented in this [facility] Work Phone: 1(160) 282-659005-30-2024 Note 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 Patient Active Problem List Diagnosis Abnormal weight [...] 5/5 throughout all four extremities. Coordination Right: Nzkref-sv-fuqu normal.Left: Nzcoob-ry-qdcv normal. Physical Exam Eyes: Extraocular Movements: Extraocular [...] Follow-up in 1 year documented in this [facility] Work Phone: 1([phone]) 886-707505-10-2023 NoteEXAMINATION: US PELVIS TRANSVAG HISTORY: Reproductive care [...] by: HAYLIE HOUSER Date: 2022-11-25 17:20[facility] HospitalJjgxjkcn07-47-2373 NoteHNO ID: [id number] Author: Brendan Blankenship PA-C Service: ? 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 I, Brendan Blankenship, have reviewed this information as documented for accuracy and performed all elements of history taking, and edited the record as necessary. 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 documented in this encounterC[facility]09-01-2022 Miscellaneous Notes* Telephone Encounter - Mary Onofre RN - 03/19/2022 8:50 AM EDT LMP 02/11, +hpt. Assisted w initial OBV. Advised to take vitamin w folic acid. First trimester precautions provided. handbook sent in . documented in this encounterC[facility]07-19-2022 Miscellaneous Notes* Telephone Encounter - Brendan [...] this medication MICHELLE: No documented in this encounterCleveland Clinic [facility]02-22-2022 NoteHNO ID: [id number] Author: Brendan Blankenship PA-C Service: ? 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 Portions of this record were documented by the Information Technology Security Analyst. I, Brendan Blankenship, have reviewed this information as documented for accuracy and performed all elements of history taking, and edited the record as necessary. 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 Author Type: Nurse Practitioner Type: [...] Ectopic0 Multiple0 Live Births0 Comment: Menarche 10 Bedspread Cutter History LMP: 06/07/2021 (Exact Date), Having periods Age at Menarche: Age at First : Age at Menopause: Bedspread Cutter History Comments: Sexual Activity: Yes; Male; same [...] external genitalia normal, normal Bartholin's glands, urethra, [place]'s glands, no vulvar lesions, no cervical lesions, [...] type of detergents for washing undergarments, wiping siglz-yl-gsfp, sleep in loose shorts without underwear, shower immediately after intercourse/exercise, make sure perineum is gently blotted dry before dressing. Avoid scratching, scented pads/tampons/toilet papers, cranberry juice, bubble baths, and intercourse until symptoms are relieved. NO douching. If you shave, use a new razor at least twice monthly. 5) Follow up one year or sooner as needed 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 APRN.[facility]01-22-2018 History of Past illness Narrative* ProblemNoted DateResolved DateNO SHOW documented as of this encounter (statuses as of 02/03/2022) [facility]01-[facility] History of Past illness Narrative* ProblemNoted Date Resolved DateNO SHOWdocumented as of this encounter (statuses as of 03/19/2022) [facility]01-22-2018 History of Past illness Narrative* ProblemNoted Date Resolved DateNO SHOWdocumented as of this encounter (statuses as of 03/24/2022) [facility] HospitalEvaluation + Plan note No data available for this section [facility]* Diagnosis Acute vaginitis- Primary Vaginitis and vulvovaginitis, unspecified documented [facility]* Diagnosis Bleeding in early - Primary Unspecified hemorrhage in early , unspecified as to episode of care documented [facility] this encounter [facility]* Diagnosis Seizure (CMS/HCC)- Primary Other convulsions documented in this encounter [facility] Work Phone: Evaluation noteNo assessment information available [facility] Work Phone: Evaluation note* Diagnosis Seizure (Multi)- Primary Other convulsions documented in this encounter [facility] Work Phone: Evaluation note* Diagnosis Benign essential hypertension- Primary Essential hypertension, benign Seizure (Multi) Other convulsions Vitamin B12 deficiency Other B-complex deficiencies Fatigue, unspecified type Well adult health check Unspecified general medical examination Vitamin D deficiency documented in this encounter [facility] Work Phone: Evaluation note* Diagnosis Missed menses Missed menses , unspecified gestational age ([facility]) Encounter for supervision of normal first in first trimester ([facility]) Nausea and vomiting in ([facility]) Unspecified vomiting of , unspecified as to episode of care Seizure (HCC) Other convulsions Chronic hypertension documented in this encounter [facility]Evaluation [facility]* Diagnosis Nausea and vomiting, [...] STD exposure Screening, , for anatomic survey ([facility]) Encounter for anatomic survey documented in this encounter [facility]* Diagnosis 20 weeks gestation of ([facility]) Second trimester ([facility]-HCC) state, incidental documented in this encounter [facility]* Diagnosis Second trimester ([facility]-H[facility]) state, incidental 24 weeks gestation of ([facility]) Hypertension, unspecified type Seizure (HCC) Other convulsions [...] up with her boyfriend. * Working in [employer] * BP is much improved on lisinopril. * Saw gyne for discharge. * was told she had BV and chlamydia. * took antibiotics, got better for a few weeks and now she is having discharge again and odor. no pelvic pain. [employer] Work Phone: History of Present illness Narrative* The patient states she has been doing well with her blood pressure control since the last visit. She has no comorbid illnesses. She has no significant interval events. * Symptoms: The patient is currently asymptomatic. * Less anxiety lately. Broke up with her boyfriend. * Working in [employer]. * BP is much improved on lisinopril. * Saw gyne for discharge. * was told she had BV and chlamydia. * took antibiotics, got better for a few weeks and now she is having discharge again and odor. no pelvic pain. [employer] Work Phone: Hospital Discharge instructions No data available for this section [facility] No data available for this section [facility] Summary Purpose Family History Mother Name Dates [...] W WO CONTRAST Spike Garcia MD [address] [place] [address] Assessments Diagnosis Nonintractable generalized idiopathic epilepsy without status epilepticus (HCC) Diagnosis Seizure (HCC) Other convulsions Discharge Instructions * Attachments The following attachments cannot be sent through Care Everywhere. * Seizure (Wallisian) documented in this encounter Chief Complaint and Reason for Visit Chief Complaint Nausea, diarrhea Additional Source Comments INFORMATION SOURCE (unrecogn ized section and content) DATE CREATED AUTHOR 01/11/2018 [facility] DATE CREATED AUTHOR AUTHOR'S ORGANIZ ATION 04/19/2020 [facility] DATE CREATED AUTHOR AUTHOR'S ORGANIZ ATION 05/11/2020 [facility] DATE CREATED AUTHOR AUTHOR'S ORGANIZ ATION 12/29/2020 [facility] DATE CREATED AUTHOR AUTHOR'S ORGANIZ ATION 04/20/2022 [facility] DATE CREATED AUTHOR AUTHOR'S ORGANIZ ATION 08/11/2022 [facility] DATE CREATED AUTHOR AUTHOR'S ORGANIZ ATION 11/29/2022 [facility] DATE CREATED AUTHOR AUTHOR'S ORGANIZ ATION 12/27/2022 [facility] DATE CREATED AUTHOR AUTHOR'S ORGANIZ ATION 09/07/2023 [facility] DATE CREATED AUTHOR AUTHOR'S ORGANIZ ATION 12/16/2023 [facility] DATE CREATED AUTHOR AUTHOR'S ORGANIZ ATION 04/01/2024 [facility] DATE CREATED AUTHOR AUTHOR'S ORGANIZ ATION 04/02/2024 [facility] DATE CREATED AUTHOR AUTHOR'S ORGANIZ ATION 07/14/2024 [facility] DATE CREATED AUTHOR AUTHOR'S ORGANIZ ATION 09/15/2024 [facility] DATE CREATED AUTHOR AUTHOR'S ORGANIZ ATION 04/22/2025 [facility] DATE CREATED AUTHOR AUTHOR'S ORGANIZ ATION 05/30/2025 [facility] EPIC Reason for Visit (unrecogniz ed section and content) StatusReasonSpecialtyDiagnoses / ProceduresReferred By ContactReferred To ContactClosedEEG Diagnoses Generalized idiopathic epilepsy and epileptic syndromes, not intractable, without status epilepticus Procedures HC EEG 16+ CHANNEL TELEMTERY 24HR Spike Garcia MD [address] [facility] [address] [place] [address] Mloz Eeg [address] [place] [address] StatusReasonSpecialtyDiagnoses / ProceduresReferred By ContactReferred To ContactClosedRadiology Diagnoses Generalized idiopathic epilepsy and epileptic syndromes, not intractable, without status epilepticus Procedures HC MRI-BRAIN WO & W CONTRAST Spike Garcia MD [address] [facility] [address] [place] [address] Mloz Mri [address] [place] [address] ReasonCommentsSeizuresSeizure like activityReasonCommentsAppointmentReason CommentsBleeding With PregnancyReasonCommentsSeizuresMedication udatesReason CommentsSeizuresReasonCommentsFollow-upFollow from bank guard appt for elevated BP ReasonCommentsAmenorrheaReasonCommentsRoutine VisitReasonComments Routine VisitWell Women VisitSTI Screening Source Comments (unrecognize d section and content) In the event this informatio n is protected by the Federal Confidentiality of Alcohol and Drug Abuse Patient Records regulations: The Federal rules restrict any use of the information to criminally investigate or prosecute any alcohol or drug abuse patient.[facility] HospitalIn the event this information is protected by the Federal Confidentiality of Alcohol and Drug Abuse Patient Records regulations: The Federal rules restrict any use of the information to criminally investigate or prosecute any alcohol or drug abuse patient.[facility] HospitalIn the event this information is protected by the Federal Confidentiality of Alcohol and Drug Abuse Patient Records regulations: The Federal rules restrict any use of the information to criminally investigate or prosecute any alcohol or drug abuse patient.[facility] Care Teams (unrecognized sec tion and content) Team MemberRelationshipSpecialtyStart DateEnd Date Koffi Uriarte MD PCP - GeneralFamily Practice08/17/16Team MemberRelationshipSpecialtyStart DateEnd Date Koffi Uriarte MD PCP - GeneralFamily Practice08/17/16Team MemberRelationshipSpecialtyStart [place] [address] [place] [address] PCP - General08/14/20 [place] [address] [place] [address] PCP - [facility] PCP02/16/23 Team Status: Active Member Role Status Dates Norma Houser APRN Primary Care Provider Active Team Status: Inactive Member Role Status Dates Yusra Whitehead APRN Attending Provider Active Start: November 09, 2023 End: November 09, 2023[facility] Care ProviderActiveStart: November 09, 2023 End: November 09, 2023Team MemberRelationshipSpecialtyStart [place] [address] [place] [address] PCP - General08/14/20Team MemberRelationshipSpecialtyStart [place] [address] [place] [address] PCP - General08/14/20Team MemberRelationshipSpecialtyStart [place] [address] [place] [address] PCP - GeneralFamily Medicine01/14/23Team MemberRelationshipSpecialtyStart [place] [address] [place] [address] [facility] - [facility]/14/23Team MemberRelationshipSpecialtyStart [place] [address] [address] PCP - GeneralFamily Medicine01/14/23Team MemberRelationshipSpecialtyStart [place] [address] [address] PCP - GeneralFamily Medicine01/14/23Team MemberRelationshipSpecialtyStart [place] [address] [address] PCP - GeneralFamily Medicine01/14/23Team MemberRelationshipSpecialtyStart [place] [address] [address] PCP - GeneralFamily Medicine01/14/23Team MemberRelationshipSpecialtyStart [place] [address] [address] PCP - GeneralFamily Medicine01/14/23Team MemberRelationshipSpecialtyStart [place] [address] [address] PCP - GeneralFamily Medicine01/14/23Team MemberRelationshipSpecialtyStart [place] [address] [address] PCP - GeneralFamily Medicine01/14/23Team MemberRelationshipSpecialtyStart [place] [address] [place] [address] PCP - GeneralFamily Medicine01/14/23Te MemberRelationshipSpecialtyStart [place] [address] [place] [address] PCP - [facility]01/14/23Te MemberRelationshipSpecialtyStart [place] [address] [place] [address] PCP - [facility]01/14/23Te MemberRelationshipSpecialtyStart [place] [address] [place] [address] PCP - [facility]01/14/23 Goals (unrecognized section and content) Goals [...] BE BASED ON THE PRIMARY CLINICAL RECORDS. [facility]. provides no warranty or guarantee of the accuracy or completeness of information in this document.
--- OUTSIDE RECORDS SUMMARY | 2025-06-15 14:52 | XMS_ITS | Encounter Summary ---
Author Organization [facility] Address [address] [place] [address] Care Team Providers Care Agronomy Teacher Name Role Phone Suzanne Uriarte MD Primary Care Provider [phone] Encounter Details DateTypeDepartmentCare Team (Latest Contact Info)Gravguablyw57/26/2025bstract [facility] L[facility] [address] [place] [address] Willis Chen DO [address] [place] [address] Corn[address] [place], [place] [address] Social History Tobacco UseTypesPacks/DayYears UsedDateSmoking Tobacco: Never Assessed Estimated Date of QrlduihfRmdhsotuGxj38/02/2026ased on last menstrual period of 11/13/2024Sex and Gender InformationValueDate RecordedSex Assigned at BirthFemale 12/21/2022 8:22 PM EDTLegal KddXiedyi92/15/2023 11:40 PM EDTGender Identity Usqdmi6412/21/2022 8:22 PM EDTSexual RntmkoipyjjUcczuyof89/05/2023 8:22 PM EDT documented as of this encounter Plan of Treatment DateTypeDepartmentCare Team (Latest Contact Info)Quchzvrbmkz36/10/2025 3:00 PM ESTRoutine [facility] Giselle LAYTON [address] [address] Willis Chen DO [address] [place] [address] documented as of this encounter Goals GoalPatient Goal TypeAssociated ProblemsRecent ProgressPatient-Stated?Author Reminders Care PlanOB RemindersNoOpen Scheduling, Backgrounddocumented as of this encounter Visit Diagnoses Not on filedocumented in this encounter Additional Health Concerns Active ProblemsNoted DateDiagnosed DateOB Wunuzihby30/29/2023 documented as of this encounter Care Teams Team MemberRelationshipSpecialtyStart [place] [address] [place] [address] PCP - GeneralFamily Medicine01/14/23documented as of this encounter
--- OUTSIDE RECORDS SUMMARY | 2025-06-15 14:52 | XMS_ITS | Encounter Summary ---
Author Organization [facility] Address [address] [place] [address] Phone Care Team Providers Care Spout Liner Name Role Phone Suzanne Uriarte MD Primary Care Provider + Reason for Visit * ReasonOnset DateCommentsMedical Advice/Yiofrosa68/26/2025 Encounter Details DateTypeDepartmentCare Team (Latest Contact Info)Cnlkfaeexag09/26/2025Telephone [facility] [address] [address] Mei Soto MA Medical Advice/Question Social History Tobacco UseTypesPacks/DayYears UsedDateSmoking Tobacco: NeverPassive [...] drinks on one occasion?Never05/03/2024HQ-2AnswerDate RecordedPatient Health Questionnaire-2 Niwro544/16/2024CommentsNoSex and Gender Information ValueDate RecordedSex Assigned at BirthNot on fileLegal IwyTlepvb38/25/2022 10:33 PM ESTGender IdentityNot on fileSexual OrientationNot on filedocumented as of this encounter Miscellaneous Notes * Telephone Encounter - Nedra Deleon MD - 06/13/2025 1:39 PM EST Returned phone call to patient. Nocturnal seizure last night. Was seen at the ED at [facility]. Lamotrigine level was checked but result is still pending. Previous level in 2020 was 6.4 She is currently 30 weeks Back to her baseline now. No missed doses. She was on lamotrigine 100mg BID and the ED increased to 150mg BID Recommend continuing increased dose of lamotrigine. Repeat level in 1 week All seizures have always been nocturnal, never during the daytime No driving until lamotrigine level is again therapeutic Will arrange for close follow-up with Laila Jin CNP * Telephone Encounter - Mei Soto MA - 06/13/2025 9:19 AM EST Pt states that she hasn't had a seizure in 3 or more years but last night she had one while she wassleeping she states that her states that it lasted about 5 minutes. She states that she went to [facility] and they increased her lamotrigine to 150 mg and she is currently . She wanted to verify things with you. Please Advise. documented in this encounter Plan of Treatment DateTypeDepartmentCare Team (Latest Contact Info)Uprbahwjvvr38/01/2025Orders Only [facility] [address] [address] Mei Soto MA Seizure (Multi)NameTypePriorityAssociated DiagnosesOrder ScheduleLamotrigine levelLabRoutine Seizure (Multi) Expected: 06/18/2025 (Approximate), Expires: 06/13/2026documented as of this encounter Visit Diagnoses Diagnosis Seizure (Multi)- Primary Other convulsions Seizure (Multi) Other convulsions documented in this encounter Additional Health Concerns AssessmentNoted TimeA fall risk assessment has been completed for the patient 05/03/2024 9:18 AM EDTdocumented as of this encounter Care Teams Team MemberRelationshipSpecialtyStart [place] [address] [address] [address] PCP - General08/14/20documented as of this encounter
--- OUTSIDE RECORDS SUMMARY | 2025-06-15 14:52 | XMS_ITS | Clinical Summary ---
Author Organization [facility] Address [address] 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 60 tablet 5Active lamoTRIgine (LaMICtal) 100 mg tablet Indications:Unspecified convulsions (Multi)Take 1 tablet (100 mg) by mouth 2 times a day. 180 tablet 6Active Active Problems ProblemNoted DateDiagnosed LopbYiigpey74/25/2025 Assessment & Plan (09/14/2024 1:31 PM EST): We talked about healthy habits and sleep hygiene Orders: CBC; Future TSH with reflex to Free T4 if abnormal; Future Vitamin B12; Future Vfyxffh2010/02/2022enign essential uzaiaucjztrw73/17/2023 Assessment & Plan (09/14/2024 1:31 PM EST): [...] Primary Care - PCP - Established; Future Zeoahvb5810/02/2022 Assessment & Plan (09/14/2024 1:31 PM EST): Good control. Follow up with neuro. Continue meds Vitamin B12 kcssuqghwp28/17/2023 Assessment & Plan (09/14/2024 1:31 PM EST): Resolved Problems ProblemNoted DateDiagnosed DateResolved DateClass 1 obesity with body mass index (BMI) of 32.0 to 32.9 in adult/5160Vsxgbwmrdeek88/29/2023 09/12/2024bnormal weight gain/llergic qrucjnkm87/17/2023 05/03/2024acterial eqcudtglw28/ilateral chronic otitis media /hest painhronic bkatvpxionjs16/17/2023 05/03/2024hronic kxyzohwvn42onductive hearing loss, /Elevated BP without diagnosis of hypertension /Globus ibsftokwn41/Hair loss10/02/2022 05/03/20247295Vyzfivno31/17/202310/Tonsil stoneVaginal Encounters DateTypeDepartmentCare WwcjWqmxaufwodv10/26/2025Telephone [address] [place] [address] Mei Soto MA Medical Advice/Vsffnjax83/27/2025Orders Only [address] [place] [address] Nedra Deleon MD Unspecified convulsions (Multi)04/18/2025Telephone [facility] [address] [facility] [place] [address] Alfredo Kim, MA 04/17/2025Refill [facility] [address] [facility] [place] [address] Suzanne Uriarte MD Benign essential vfooqjzfeenr24/23/2025Scanned Document [facility] [address] [facility] [place] [address] Suzanne Uriarte MD 03/21/2025Refill [facility] [address] [facility] [place] [address] Suzanne Uriarte MD Benign essential hypertensionfrom Last 3 Months Immunizations ImmunizationAdministration DatesNext MarUDL7304/16/1994,02/12/1994,1993DTaP, Erwdemkqmdy79/25/1999,01/07/1995Flu vaccine (IIV4), preservative free *Check age/dose*04/22/2023,04/21/2022,04/18/2021,05/06/2017Flu vaccine, quadrivalent, no egg protein, age 6 month or greater (FLUCELVAX)05/09/2019Hepatitis B vaccine, 19 yrs and under (RECOMBIVAX, ENGERIX)06/18/1994,01/08/1994,1993Hepatitis B vaccine, adult *Check Product/Dose*11/01/2023HiB PRP-OMP conjugate vaccine, pediatric (PEDVAXHIB)10/22/1994,04/16/1994,02/12/1994,1993Hib (HbOC) 03/12/1999Influenza, injectable, xwndnscmpsfe20/11/2018MMR vaccine, subcutaneous (MMR II)03/12/1999,10/22/1994Meningococcal ACWY-D (Menactra) 4-valent conjugate tcpkcyg5302/25/2007OPV03/12/1999,04/16/1994,02/12/1994,1993PPD Test 11/30/2014,12/15/2013Pneumococcal polysaccharide vaccine, 23-valent, age 2 [...] on one occasion?Never05/03/2024HQ-2 AnswerDate RecordedPatient Health Questionnaire-2 Eonwb214/16/2024 CommentsNoSex and Gender InformationValueDate RecordedSex Assigned at BirthNot on fileLegal WmkNvcpax26/25/2022 10:33 PM ESTGender IdentityNot on fileSexual OrientationNot on file Last Filed Vital Signs Vital SignReadingTime TakenCommentsBlood Obxauglt026/9602 12:28 PM EST Cgwmq508909/12/2024 12:28 PM ZZQUqnyjmhcstn17.3 ??C (97.3 ??F)09/12/2024 12:28 PM ESTRespiratory Fcor018107/31/2022 10:54 AM ESTOxygen Mqwwxpolrn682%12/24/2021 11:32 AM EDTInhaled Oxygen Concentration--Cbhgtl17.1 kg (183 lb 4 oz)09/12/2024 12:28 PM VLOUjlbsr367.3 cm (5' 9 )09/12/2024 12:28 PM ESTBody Mass Index27.06 09/12/2024 12:28 PM EST Plan of Treatment DateTypeDepartmentCare Team (Latest Contact Info)Ndqxzateqrv77/01/2025Orders Only [facility] [address] [address] Mei Soto MA Seizure (Multi)Health MaintenanceDue DateLast DoneCommentsHIV Screening 1993Hepatitis C Pdgcoozuw82/16/2012HPV/Fozvjp3910/01/2014HPV Vaccines (1 - 3-dose standard series)2020Yearly Adult Eaeqsycx15/, 07/31/2022, 07/31/2022, Additional history existsInfluenza Vaccine (#1) /11/2022, 04/21/2022, 04/18/2021, Additional history existsCOVID-19 Vaccine (2 - season)/ervical Cancer Screening 03/07/2028Pap Smear, 03/10/2023, 03/09/2023, Additional history existsLipid Panel09/12/DTaP/Tdap/Td Vaccines (9 - Td or Tdap), 02/16/2018, 03/02/2008, Additional history exists Zoster Vaccines (1 of 2)10/02/2043HIB AawkbearMauntygoi56/25/1999, 10/22/1994, 04/16/1994, Additional history existsIPV JgfjfxvxHnngtapie64/25/1999, 10/22/1994, 04/16/1994, Additional history existsMMR VaccinesCompleted 03/12/1999, 10/22/1994Meningococcal VaccineAged Out02/25/2007No longer eligible based on patient's age to complete this topicPneumococcal Vaccine: Pediatrics and At-Risk Adult PatientsAged Out01/14/2016No longer eligible based on patient's age to complete this topicHepatitis B OtoadhhvWisybbtkq45/15/2024, 06/18/1994, 01/08/1994, Additional history existsHepatitis A VaccinesAged OutNo longer eligible based on patient's age to complete this topicRotavirus Vaccines Aged OutNo longer eligible based on patient's age to complete this topic Procedures Procedure NamePriorityDate/TimeAssociated DiagnosisCommentsLIPID PANELRoutine 09/12/2024 1:43 PM EST Well adult health check from Last 3 Months or Most Recently Relevant to Health Maintenance Results * Lipid Panel (09/12/2024 1:43 PM EST)ComponentValueRef RangeTest MethodAnalysis TimePerformed AtPathologist SignatureCHOLESTEROL, LUAFV643<200 mg/dLQuest Guthrie Robert Packer HospitalHDL WWBOZSRKBUE15> OR = 50 mg/dLQuest Guthrie Robert Packer HospitalTRIGLYCERIDES103<150 mg/dLQuest Guth[facility] Robert Packer HospitalCqmrbmhrwtui-SjjqkfdckdDDK-AHAGFXCJNYW99jd/dL (calc)[facility] HospitalComment: Reference range: <100 Desirable range <100 mg/dL for primary prevention; <70 mg/dL for patients with CHD or diabetic patients with > or = 2 CHD risk factors. LDL-C is now calculated using the Tres-Emdund calculation, which is a validated novel method providing better accuracy than the Friedewald equation in the estimation of LDL-C. Tres RODRIGEZ et al. STEPHANIE. 2013;310(19): 6841-2908 (http://education.Sem[employer]ra.Spring Metrics/faq/UBM877) CHOL/HDLC RATIO3.2<5.0 (calc)[facility] HospitalNON HDL QDCRFWMOWZN860<130 mg/dL (calc)[facility] Comment: For patients with diabetes plus 1 major ASCVD risk factor, treating to a non-HDL-C goal of <100 mg/dL (LDL-C of <70 mg/dL) is considered a therapeutic option. Specimen (Source)Anatomical Location / LateralityCollection Method / Volume Collection TimeReceived TimeBloodVenous blood specimen / Drglgfq3009/12/2024 1:43 PM EST09/12/2024 1:44 PM EST Narrative [facility] [place] - 09/13/2024 6:42 AM EST FASTING:YES FASTING: YES Authorizing ProviderResult TypeResult StatusSuzanne BRANHAM BLOOD ORDERABLESFinal ResultPerforming OrganizationAddressCity/State/ZIP CodePhone Number [facility] [place] [address] [facility] [place] [address] from Last 3 Months or Most Recently Relevant to Health Maintenance Insurance Care Teams Team MemberRelationshipSpecialtyStart [place] [address] [place], [place] [id number] PCP - General08/14/20
[2025-06-15 15:36] LABS: Ferritin 6.0 ng/mL (8.0-252.0)
[2025-06-16 07:07] LABS: Transferrin 454 mg/dL (192-364)
== END 2025-06-15 14:49 | disposition home or self-care (01) ==
LOC: LAB 14:49
PROVIDERS: PCP Family Medicine; Visit Provider Physician Assistant
DX: O99.019 Anemia complicating pregnancy, unspecified trimester (principal)
CPT/HCPCS: 36415; 82728; 84466

== ENCOUNTER 2025-06-20 07:07 | Outpatient (OUT) | payer BC, SELFPAY ==
--- OUTSIDE RECORDS SUMMARY | 2025-06-12 18:05 | XMS_ITS | Continuity of Care Document ---
Author Organization [facility] Address [address] [place] [address] Phone Care Team Providers Care Panel Gluer Name Role Phone Norma Victor Unavailable Unavailable [...] BP >=130-139MM HG MED LIST DOCD IN [facility] RVW MEDS BY RX/DR IN [facility] PT TOBACCO USE DONE RCVD TLK Pt inelig neg scrn depres ROUTINE VENIPUNCTURE TB Read TB INTRADERMAL TEST IMMUNIZATION ADMIN HEP B VACCINE, ADULT, IM IMMUNIZATION ADMIN TDAP VACCINE >7 IM Covid-19 Vaccine Administration 023 Covid-19 Vaccine, 50 Mcg Moderna 12y Plu s PREV VISIT, EST, AGE 18-39 DIAST BP 80-89 MM HG SYST BP < 130 MM HG MED LIST DOCD IN [facility] RVW MEDS BY RX/DR IN [facility] TOBACCO NON-USER Pt inelig neg scrn depres [...] 23:05:00 9.3 [CFU]/mL 3.8-11.6 N Final Performed by:[facility] ([id number])[address] [place] [address] Uncorrected WBC 23:05:00 9.3 10*3/uL 3.8-11.6 N Final Performed by:[facility] ([id number])[address] [facility] [place] [address] Red Blood Count 23:05:00 3.20 10*6/uL 3.60-5.00 L Final Performed by:[facility] ([id number])[address] [place] [address] Hemoglobin 23:05:00 9.7 g/dL 11.8-15.4 L Final Performed by:[facility] ([id number])[address] [place] [address] Hematocrit 23:05:00 28.2 % 34.0-46.4 L Final Performed by:[facility] ([id number])[address] [place] [address] Mean Corpuscular Volume 23:05:00 88.3 fL 80-100 N Final Performed by:[facility] ([id number])[address] [place] [address] Mean Corpuscular Hemoglobin 23:05:00 30.4 pg 24.7-34.3 N Final Performed by:[facility] ([id number])[address] [place] [address] Mean Corpuscular HGB Conc 23:05:00 34.4 g/dL 32.0-35.0 N Final Performed by:[facility] ([id number])[address] [place] [address] Red Cell Distribution Width 23:05:00 12.5 % 11.9-15.3 N Final Performed by:[facility] ([id number])[address] [place] [address] Platelet Count 23:05:00 255 10*3/uL 150-450 N Final Performed by:[facility] ([id number])1111 [place] [address] Mean Platelet Volume 23:05:00 7.3 fL 6.3-10.7 N Final Performed by:[facility] ([id number])1111 [place] [address] Monocyte Distribution Width 23:05:00 18.67 % 0.00-20.00 N Final Performed by:[facility] ([id number])1111 [place] [address] Neutrophils % (Auto) 23:05:00 65.1 % . Final Performed by:[facility] ([id number])1111 [place] [address] Lymphocytes % (Auto) 23:05:00 25.4 % . Final Performed by:[facility] ([id number])1111 [place] [address] Monocytes % (Auto) 23:05:00 9.2 % . Final Performed by:[facility] ([id number])1111 [place] [address] Eosinophils % (Auto) 23:05:00 0.1 % . Final Performed by:[facility] ([id number])1111 [place] [address] Basophils % (Auto) 23:05:00 0.2 % . Final Performed by:[facility] ([id number])1111 [place] [address] NRBC% 23:05:00 0.1 /100{WBC } 0-0.5 N Final Performed by:[facility] ([id number])1111 [place] [address] Neutrophils # (Auto) 23:05:00 6.1 10*3/uL 1.8-7.7 N Final Performed by:[facility] ([id number])1111 [place] [address] Lymphocytes # (Auto) 025 23:05:00 2.4 10*3/uL 1.00-4.8 N Final Performed by:[facility] ([id number])1111 [place] [address] Monocytes # (Auto) 025 23:05:00 0.9 10*3/uL 0.0-0.8 H Final Performed by:[facility] ([id number])1111 [place] [address] Eosinophils # (Auto) 025 23:05:00 0.0 10*3/uL 0.0-0.45 N Final Performed by:[facility] ([id number])1111 [place] [address] Basophils # (Auto) 025 23:05:00 0.0 10*3/uL 0.0-0.2 N Final PERFORMED BY:[facility] [place]bieta[place], [place] [phone] 7PATHOLOGIST MEDICAL DIRECTORIMTIAZ GUAN M.D.Performed by:[facility] ([id number])1111 [place] [address] Advance Directives Directive Yes / No Effective Date File Name No Information Encounters Encounter Description Practice Location Reason(s) For Visit Diagnoses Date Provider Providers Copied on Encounter [facility], [address] [place] [address], [id number] , tel:[phone] No Information 5 Humnoke HERIBERTO Green. [address] [place] [address], [address], . tel:[phone] OFFICE/OUTPA TIENT VISIT, EST [facility], [address] [place] [address], [id number] , tel:[phone] EHOVE est care (chief complaint)La b draw (chief complaint) Need for hepatitis C screening testScreening for diabetes mellitusScreening for endocrine disorderScreening for lipid disordersScreening for HIV (human immunodeficiency virus)Body mass index [BMI] 28.0-28.9, adultEssential hypertensionHistory of seizure 4 Jason Diaz. [address] [place] [address], [address], [place]. tel:[phone] [facility], [address] [place] [address], [id number] , [place] tel: [phone] [facility] Hep B Titer (chief complaint) Encounter for antibody response examination 4 Monet Chen. [address], [place], [id number] , [place]. tel: [phone] [facility], [address] [place] [address], [id number] , [place] tel: [phone] [facility] No Information 4 Monet Chen. [address], [place], [id number] , [place]. tel: [phone] [facility], [address] [place] [address], [id number] , [place] tel: [phone] [facility] Encounter for screening for respiratory tuberculosis 4 Monet Chen. [address] [place] [address], [id number] , [place]. tel: [phone] [facility], [address] [place] [address], [id number] , [place] tel: [phone] [facility] No Information 3 Monet Chen. [address] [place] [address], [id number] , [place]. tel: [phone] [facility], [address] [place] [address], [id number] , [place] tel: [phone] [facility] No Information 3 Monet Chen. [address] [place] [address], [id number] , [place]. tel: [phone] PREV VISIT, EST, AGE 18-39 [facility], [address] [place] [address], [id number] , [place] tel: [phone] [facility] Pillars Appointment (chief complaint) Body mass index [BMI] 31.0-31.9, adultEncntr for general adult medical exam w/o abnormal findings 3 Bernardo Montenegro. [address], [place], [id number] , [place]. tel: [phone] [facility], [address], [place], [id number] , [place] tel: [phone] [facility] No Information 3 Monet Chen. [address], [place], [id number] , [place]. tel: [phone] OFFICE/OUTPA TIENT VISIT, EST [facility], [address], [place], [id number] , [place] tel: [phone] [facility] Problem Visit (chief complaint) Morning sicknessBody mass index [BMI]30.0-30.9, adult 3 Bernardo Montenegro. [address], [place], [id number] , [place]. tel: [phone] [facility], [address] [place] [address], [id number] , [place] tel: [phone] [facility] Encounter For Screening For Covid-19 3 Monet ARTEAGA Bryn. [address], [place], [id number] , [place]. tel: [phone] [facility], [address] [place] [address], [id number] , [place] tel: [phone] [facility] Lab draw (chief complaint) Encounter for antibody response examination 3 Monet Cehn. [address], [place], [id number] , [place]. tel: [phone] [facility], [address] [place] [address], [id number] , [place] tel: [phone] [facility] No Information 3 Monet Chen. [address] [place] [address], [id number] , [place]. tel: [phone] [facility], [address] [place] [address], [id number] , [place] tel: [phone] [facility] Encounter for screening for respiratory tuberculosis 3 Monet Chen. [address], [place], [id number] , [place]. tel: [phone] [facility], [address], [place], [id number] , [place] tel: [phone] [facility] Encounter For Screening For Covid-19 2 Viscchuy Chen. [address], [place], [id number] , [place]. 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 [address] [place], [address], [place]. tel: [phone] [facility], [address] [place] [address], [id number] , [place] tel: [phone] [facility] No Information 2 Monet Chen. [address], [place], [id number] , [place]. tel: [phone] OFFICE/OUTPA TIENT VISIT, [facility], [address] [place] [address], [id number] , [place] tel: [phone] [facility] Bug Bite (chief complaint) Insect bite without infectionSkin rash 2 Jose Antonio NORWOODP-C Vandana. [address] [place], [address], [place]. tel: [phone] OFFICE/OUTPA TIENT VISIT, [facility], [address] [place] [address], [id number] , [place] tel: [phone] [facility] otalgia (chief complaint) Body mass index [BMI] 32.0-32.9, adultOtalgia of left earLeft acute otitis media 2 Jose Antonio DELEON-Darlene Ross. [address] [place], [address], [place]. tel: [phone] PREV VISIT, EST, AGE 18-39 [facility], [address], [place], [id number] , [place] tel: [phone] [facility] pillars (chief complaint) Encntr for general adult medical exam w/o abnormal findingsEssential hypertensionCough, persistent 2 Mik Green. [address] [place], [address], [place]. tel: [phone] [facility], [address] [place] [address], [id number] , [place] tel: [phone] [facility] Encounter For Screening For Covid-19 2 Visci DO Bryn. [address], [place], [id number] , [place]. tel: [phone] [facility], [address] [place] [address], [id number] , [place] tel: [phone] [facility] No Information 1 Visci DO Bryn. [address], [place], [id number] , [place]. tel: [phone] [facility], [address] [place] [address], [id number] , [place] tel: [phone] [facility] No Information 1 Visci DO Bryn. [address] [place] [address], [id number] , [place]. tel: [phone] PREV VISIT, NEW, AGE 18-39 [facility], [address], [place], [id number] , [place] tel: [phone] [facility] Pillars (chief complaint)La b draw (chief complaint) Encntr for general adult medical exam w/o abnormal findingsHistory of seizure Mar- 1 Mik Green. [address] [place] [address] [place], [address], [place]. tel: [phone] [facility], [address], [place], [id number] , [place] tel: [phone] [facility] No Information 1 Monet Chen. [address], [place], [id number] , [place]. tel: [phone] [facility], [address] [place] [address], [id number] , [place] tel: [phone] [facility] No Information 1 Monet Chen. [address] [place] [address], [id number] , [place]. tel: [phone] [facility], [address] [place] [address], [id number] , [place] tel: [phone] [facility] Encounter for screening for other viral disease 1 Monet Chen. [address], [place], [id number] , [place]. tel: [phone] [facility], [address] [place] [address], [id number] , [place] tel: [phone] [facility] No Information 1 Monet Chen. [address] [place] [address], [id number] , [place]. tel: [phone] Referring Provider: [facility], [address] [place] [address], [id number] , [place] tel: [phone] [facility] Encounter for screening for respiratory tuberculosis 0 Monet Chen. [address] [place] [address], [id number] , [place]. tel: [phone] Family History Family Member Type Diagnosis Age [...] egistry Payers Payer name Insurance type Covered green party ID Authoriza tiluis(s) Medical [employer] CI [id number] [employer] CI [id number] [employer] CI [id number] Medical [employer] CI [id number] Medical [employer] CI [id number] Medical [employer] CI [id number] Social History Type Description Quantity Date Captured Comments Sex Female Smoking Status No Information Sexual Orientation Straight or heterosexual Gender Identity Female Chief Complaint And Reason For Visit No Information Reason For Referral Reason For Referral No Information Plan Of Treatment Date Type Action Status Goal HPV. Due on due Goal PRAPARE ASSESSMENT. Due on A due Goal Tdap Vaccine. Due on 2032 due Goal Urinalysis. Due on due Goal Hepatitis C screening. Due o n due Goal Depression screening. Due on due Goal Tdap due Goal Lipid panel. Due on 034 due Goal Influenza vaccine. Due on due Goal Unhealthy drug use screening . Due on due Goal ECG. Due on due Goal RLP. Due on due Goal Tobacco cessation counseling completed Goal Lifestyle education regardin g diet completed Goal Tobacco cessation counseling completed Goal Hep A. Due on du e Goal Depression screening. Due on due Goal [...] Goal PRAPARE ASSESSMENT. Due on due Goal Lipid panel. Due on due Goal Hepatitis C screening. Due o n due Goal PRAPARE ASSESSMENT. Due on A due Goal Tdap due Goal Unhealthy drug use screening . Due on due Goal Influenza vaccine. Due on Ap due Goal RLP. Due on due Goal Urinalysis. Due on due Goal ECG. Due on due Goal Depression screening. Due on due Goal HPV. Due on due Goal Tdap Vaccine. Due on 2032 due Goal Hepatitis C screening. Due o n due Goal Depression screening. Due on due Goal Tdap Vaccine. Due on 2032 due Goal Tdap due Goal ECG. Due on due Goal Urinalysis. Due on due Goal Hep A. Due on du e Goal Lipid panel. Due on due Goal Influenza vaccine. Due on Ap r due Goal PRAPARE ASSESSMENT. Due on A pr due Goal Unhealthy drug use screening . Due on due Goal HPV. Due on due Goal RLP. Due on due Goal ECG. Due on due Goal PRAPARE ASSESSMENT. Due on N due Goal Urinalysis. Due on due Goal Hepatitis C screening. Due o n due Goal Lipid panel. Due on due Goal Influenza vaccine. Due on No due Goal PAP. Due on due Goal [...] e Goal Tdap. Due on due Goal Influenza [...] Goal Urinalysis. Due on due Goal Tdap Vaccine. Due on 2022 due Goal PAP. Due on due Goal Hepatitis C screening. Due o n due Goal Lifestyle education regardin g diet completed Goal PRAPARE ASSESSMENT. Due on O due Goal Influenza vaccine. Due on Oc due Goal Tdap. Due on due Goal ECG. Due on due Goal RLP. Due on due Goal Hepatitis C screening. Due o n due Goal Urinalysis. Due on due Goal Tdap Vaccine. Due on 2022 due Goal PAP. Due on due Goal Unhealthy drug use screening . Due on due Goal Hep A. Due on du e Goal Lipid panel. Due on due Goal Depression screening. Due on due Goal RLP. Due on due Goal Tdap Vaccine. Due on 2022 due Goal Urinalysis. Due on due Goal Tdap. Due on due Goal Influenza vaccine. Due on due Goal Lipid panel. Due on due Goal PAP. Due on due Goal Depression screening. Due on due Goal Unhealthy drug use screening . Due on due Goal Hepatitis C screening. Due o n due Goal Hep A. Due on du e Goal ECG. Due on due Goal PRAPARE ASSESSMENT. Due on O due Goal Hep A. Due on du e Goal PRAPARE ASSESSMENT. Due on O due Goal Tdap. Due on due Goal RLP. Due on due Goal Influenza vaccine. Due on Oc due Goal ECG. Due on due Goal Unhealthy drug use screening . Due on due Goal Lipid panel. Due on 034 due Goal Urinalysis. Due on due Goal PAP. Due on due Goal Hepatitis C screening. Due o n due Goal Tdap Vaccine. Due on 2022 due Goal Depression screening. Due on due Goal Lifestyle education regardin g diet completed Goal Tdap Vaccine. Due on 2022 due Goal PRAPARE ASSESSMENT. Due on S due Goal Urinalysis. Due on due Goal Influenza vaccine. Due on Se due Goal Depression screening. Due on due Goal ECG. Due on due Goal RLP. Due on due Goal Tdap. Due on due Goal Lipid panel. Due on due Goal PAP. Due on due Goal Lipid panel. Due on due Goal Hep A. Due on du e Goal PAP. Due on due Goal Tdap Vaccine. Due on 2022 due Goal Urinalysis. Due on due Goal Depression screening. Due on due Goal Influenza vaccine. Due on due Goal ECG. Due on due Goal PRAPARE ASSESSMENT. Due on M due Goal RLP. Due on due Goal Tdap. Due on due Goal ECG. Due on due Goal Depression screening. Due on due Goal Urinalysis. Due on due Goal Influenza vaccine. Due on due Goal PAP. Due on due Goal Lipid panel. Due on due Goal Hep A. Due on du e Goal Tdap Vaccine. Due on 2022 due Goal RLP. Due on due Goal Tdap. Due on due Goal PRAPARE ASSESSMENT. Due on M due Goal Hep A. Due on du e Goal Lipid panel. Due on due Goal PRAPARE ASSESSMENT. Due on N due Goal RLP. Due on due Goal Influenza vaccine. Due on No due Goal PAP. Due on due Goal ECG. Due on [...] due Goal RLP. Due on due Goal RLP. Due on due Goal PAP. Due on due Goal Influenza vaccine. Due on due Goal Lipid panel. Due [...] due Goal Urinalysis. Due on due Goal Urinalysis. Due on [...] was switched from Lisinopril to Labetolol by Vice President Of Product Marketing (Dr. Sheppard) when she was about 4 [...] drawn tomorrow.Women's Health: ObviouslyFlu: Already has it//Josiah RNOB/ENVIRONMENTAL SERVICES MANAGER for - Dr. Bonilla in [facility] concerns today. Pillars labs scheduled for [...] prior without need for zofran use. RGosumacarlee [facility] Lab draw Pt presents for lab draw. Labs drawn LAC. 2x2 and bandage applied. //JANNET Concepcion Bug Bite Pt here today fo r bug bite to upper Left leg. Pt sates she was bitten yesterday but it is more red and swollen since yesterday. Pt sates it itches. 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 Was driving with top down on vehicle was and either bit by a bug or stung by a bee to left upper inner thigh. Was wearing shorts at the time. NKA that pt is aware of. Happened yesterday. No fever/chills. Area getting larger, warmer and redder. Was sent to office by supervisor feed house to assess if ATB are needed. No [...] needs today. Kamilla FLETCHER pillars Here for [facility] s exam to complete employee pillars and to establish care. Last seen PCP from [place] in September 2021. History of new onset [...] over 1 yr agoWoman's health-seeing provider at [facility], Aug 2021[facility] [place] Lab draw Labs drawn from left AC x 1 attempt, tolerated well, pressure dressing applied to area. Fredi Bettencourt RN Pillars Patient presents for an A pillars physical exam, pt has established dental and optometry. No other complaints. DesmondAmayamickybianca noted. Has established family provider, Suzanne Uriarte. Next appt is in May. Thinking of transferring care here to [facility]. Recent history of sudden onset seizure approx 1 year ago while sleeping. Testing completed (MRI, EEG) with Nedra Mccray with [facility]. Taking medications as prescribed. No recent seizure activity. Denies any concerns at this time. Vision-Recently prescribed new glassesDental- few yearsWFriendfer- appt yesterdayANGEL [place] Functional Status Date Functional [...]
--- OUTSIDE RECORDS SUMMARY | 2025-06-13 14:30 | XMS_ITS | Encounter Summary ---
Author Organization [facility] Address [address] [facility] [place] [address] Care Team Providers Care Scrap Collector Name Role Phone Suzanne Uriarte MD Primary Care Provider [phone]- [phone] Encounter Details DateTypeDepartmentCare Team (Latest Contact Info)Xchggssbxqb62/26/2025 2:30 PM ESTAncillary Procedure JOSY LAYTON [address] [place] [address] Hypertension, unspecified type; Seizure (HCC) Social History Tobacco UseTypesPacks/DayYears UsedDateSmoking Tobacco: Never Assessed Estimated Date of WbehuzjeIqizkcmqXza47/02/2026Based on last menstrual period of 11/13/2024Sex and Gender InformationValueDate RecordedSex Assigned at BirthFemale 12/21/2022 8:22 PM EDTLegal MoqSwndaq69/15/2023 11:40 PM EDTGender Identity Jogtwf4012/21/2022 8:22 PM EDTSexual TfvvnykvedcBoxalgdt77/05/2023 8:22 PM EDT documented as of this encounter Plan of Treatment DateTypeDepartmentCare Team (Latest Contact Info)Dhorhbxnjjk02/10/2025 3:00 PM ESTRoutine JOSY LAYTON [address] [place] [address] Willis Chen DO [address] [place], [place] [id number] documented as of this encounter Goals GoalPatient Goal TypeAssociated ProblemsRecent ProgressPatient-Stated?Author Reminders Care PlanOB RemindersNoOpen Scheduling, Backgrounddocumented as of this encounter Procedures Procedure NamePriorityDate/TimeAssociated DiagnosisCommentsUS OB FOLLOW UP TRANSABDOMINAL TFSTMJEIOxhzjzg26/26/2025 3:02 PM EST Hypertension, unspecified type Seizure (HCC) documented in this encounter Results * US OB follow up transabdominal approach (06/13/2025 3:02 [...] Eid MD Authorizing ProviderResult TypeResult StatusCorey April MARTINEZ OB US PROCEDURES Final Result documented in this encounter Visit Diagnoses Diagnosis Hypertension, unspecified type Seizure (HCC) Other convulsions documented in this encounter Additional Health Concerns Active ProblemsNoted DateDiagnosed DateOB Zkfogbsxx47/29/2023 documented as of this encounter Care Teams Team MemberRelationshipSpecialtyStart [place] [address] [place], [place] [id number] PCP - GeneralFamily Medicine01/14/23documented as of this encounter
--- OUTSIDE RECORDS SUMMARY | 2025-06-13 15:00 | XMS_ITS | Encounter Summary ---
Author Organization [facility] Address [address] [place] [address] Care Team Providers Care Lunchroom Monitor Name Role Phone Suzanne Uriarte MD Primary Care Provider +1- [phone] Reason for Visit * ReasonCommentsRoutine Visit Encounter Details DateTypeDepartmentCare Team (Latest Contact Info)Puasogpgtcx33/26/2025 3:00 PM ESTRoutine [facility] [address] [place] [address] Roula Grullon PA [address] [place], [place] [id number] Third trimester ([facility]); 30 weeks gestation of ([facility]); Antepartum anemia ([facility]) Social History Tobacco UseTypesPacks/DayYears UsedDateSmoking Tobacco: Never Assessed Estimated Date of VctyxtmjUlpunpunBry76/02/2026Based on last menstrual period of 11/13/2024Sex and Gender InformationValueDate RecordedSex Assigned at BirthFemale 12/21/2022 8:22 PM EDTLegal PsoNvibdw01/15/2023 11:40 PM EDTGender Identity Jgkpbs5412/21/2022 8:22 PM EDTSexual SksjziusiphYpqhwloe25/05/2023 8:22 PM EDT documented as of this encounter Last Filed Vital Signs Vital SignReadingTime TakenCommentsBlood Shqvgsvx258/7006/13/2025 3:10 PM EST Pulse--Temperature--Respiratory Rate--Oxygen Saturation--Inhaled Oxygen Concentration--Ukrprh15.4 kg (190 lb 8 oz)06/13/2025 3:10 PM ESTHeight--Body Mass Index28.13011/16/2022 12:00 PM EDTdocumented in this encounter Progress Notes * CHRISTIANA Mills - 06/13/2025 3:00 PM EST Reason for Appointment: Patient ID: Kavya Guerrero is a 29 y.o. female who presents for Routine Visit Patient presents today for Return OB appointment. MEDICATIONS Current Outpatient Medications Medication Instructions docusate sodium (COLACE) 50 mg, 2 times daily iron polysaccharides (PROFE) 391.3 mg, Oral, Daily labetalol (NORMODYNE) 200 mg, Oral, 2 times daily lamoTRIgine (LAMICTAL) 150 mg MV-Min-Fe Fum-FA-DHA ( 1 PO) Take by mouth promethazine (PHENERGAN) 25 mg, Oral, Every 6 hours PRN, Take 1 tablet by mouth every 6 hours as needed for nausea. ALLERGIES No Known Allergies PROBLEMS Active Ambulatory Problems Diagnosis Date Noted Hypertension 01/14/2023 Seizure ([facility]) 07/09/2021 Breech presentation, no version ([facility]) 07/29/2023 Resolved Ambulatory Problems Diagnosis Date [...] reviewed. Vitals: Estimated body mass index is 28.13 kg/m?? as calculated from the following: Height as of 11/16/22: 5' 9 . Weight as of this encounter: 190 lb 8 oz. BP: 136/70 Patient's last menstrual period was 11/13/2024. Assessment/Plan ICD-10-CM 1. Third trimester ([facility]) Z34.93 POCT urinalysis dipstick manually resulted 2. 30 weeks gestation of ([facility]) Z3A.30 3. Antepartum anemia ([facility]) O99.019 Ferritin Transferrin Ferritin Transferrin Assessment/Plan 06/12/25. Patient was seen at [place] for epigastric / round ligament pain and cleared. Pt went home and has a seizure. Pt was transported to [facility] and evaluated. Patient lamictal increased and spokewith her neurologist this am and agreed with treatment. AT the er, HG was found to be at 9.7, despite starting profe several weeks ago. We will send in order for ferritin and transferritin levels to be drawn and get her prior auth initiated for iron infusions. Pt doing well today and feels better other than expected body aches and fatigue. We will follow up with pt in 2 weeks other than starting her iron infusions. PVU Documented by CHRISTIANA Mills on behalf of: CHRISTIANA Mills documented in this encounter Plan of Treatment DateTypeDepartmentCare Team (Latest Contact Info)Adnkjbruwaw10/10/2025 3:00 PM ESTRoutine [facility] [address] [place] [address] Willis Chen, [address] [place] [address] NameTypePriorityAssociated DiagnosesOrder ScheduleFerritinLabRoutine Antepartum anemia ([facility]) Expected: 06/13/2025 (Approximate), Expires: 06/13/2026TransferrinLabRoutine Antepartum anemia ([facility]) Expected: 06/13/2025, Expires: 06/13/2026documented as of this encounter Goals GoalPatient Goal TypeAssociated ProblemsRecent ProgressPatient-Stated?Author Reminders Care PlanOB RemindersNoOpen Scheduling, Backgrounddocumented as of this encounter Procedures Procedure NamePriorityDate/TimeAssociated DiagnosisCommentsPOCT URINALYSIS TDEMBMETZomfurn21/26/2025 3:11 PM EST Third trimester ([facility]) documented in this encounter Results * (ABNORMAL) POCT urinalysis dipstick manually resulted (06/13/2025 3:11 PM EST) ComponentValueRef RangeTest MethodAnalysis TimePerformed AtPathologist SignatureColor, UAYellowClarity, UAClearGlucose, UANegativeNegative - 2000(110) ++++ mg/dLBilirubin, UANegativeNegative - 4(70) +++ mg/dLKetones, UA NegativeNegative - 160(16) ++++ mg/dLSpec Grav, UA1.0151 - 1.03Blood, UA NegativeNegative - 50 Jae/mcLpH, UA6.05 - 9Protein, UANegativeNegative - 2000(20) ++++ mg/dLUrobilinogen, UA0.20.2 - 12 mg/dLLeukocytes, UAPositive Negative - 500+++ Marsha/mcLComment:1+Nitrite, UANegativeNegative - Positive Specimen (Source)Anatomical Location / LateralityCollection Method / Volume Collection TimeReceived GvftVnbmw50/26/2025 3:11 PM EST Narrative Authorizing ProviderResult TypeResult StatusTruesdale HospitalOINT OF CARE TEST ENTER/EDIT ORDERABLESFinal Result documented in this encounter Visit Diagnoses Diagnosis Third trimester ([facility]) state, incidental 30 weeks gestation of ([facility]) Antepartum anemia ([facility]) documented in this encounter Additional Health Concerns Active ProblemsNoted DateDiagnosed DateOB Kugnbydff74/29/2023 documented as of this encounter Care Teams Team MemberRelationshipSpecialtyStart [place] [address] [address] [place], [place] [phone] PCP - GeneralFamily Medicine01/14/23documented as of this encounter
--- OUTSIDE RECORDS SUMMARY | 2025-06-20 07:11 | XMS_ITS | CCD ---
Author Organization [facility] Care Team Providers Care Cooler Operator Name Role Phone Uriarte, Koffi A [...] MILAGRO HUGHES Primary Care Unavailable Chapito REINOSO, Kofif Rosas Primary Care Provider Koffi Uriarte MD Primary Care Provider [phone] NEDRA CALDERON Attending Unavailable KOFFI URIARTE Primary Care UnavailKOFFI Aguilera Attending UnavailKOFFI Aguilera Primary Care Unavailmary Uriarte MD, Koffi Primary Care Provider [phone] ROULA GRULLON Attending Unavailable WILLIS CHEN Attending Unavailable WILLIS CHEN Referring Unavailable ROULA GRULLON Attending Unavailable WILLIS CHEN Attending Unavailable ROULA GRULLON Attending Unavailable WILLIS CHEN Attending Unavailable Allergies Allergy ClassificationReported Allergen(s)Allergy TypeDate of OnsetReaction(s) Facility (2 sources)No Known Medication Allergies; Translations: [No Known Medication Allergies]Propensity to adverse reactions (disorder)[facility] Repository Medications Current Medications MedicationDrug Class(es)DatesSig [...] Day] (9 sources)Progestin, Estrogen, Progestin-containing Intrauterine DeviceStart: 22-01-4538Pzmaqwva 100 mcg-20 mcg oral tablet 1 tab(s), Oral, Daily, 3 EA, Refill(s) [facility] #0220 Start Date: 06/05/19 Status: OrderedStart: 52-38-9316ytcq 1 tablet by mouth once dailyOrsythia 0.1-20 MG-MCG Oral Tablet TAKE 1 TABLET DAILY. Quantity: 1 Refills: 3 Koffi Uriarte MD Start : 12-Oct-2015 Active 28 Tablet Packtake 0.1-20 tablets by mouth once levonorgestrel-ethinyl estradiol (LUTERA) 0.1-20 MG-MCG per tablet Take 1 tablet by mouth daily. 0 Activelabetalol hydrochloride 200 mg oral tablet (20 sources)beta-Adrenergic BlockerStart: 68-78-0265qlro 1 tablet by mouth in the morninglabetalol (Normodyne) 200 MG tablet Indications: Secondary hypertension Take 1 tablet (200 mg) by mouth in the morning and 1 tablet (200 mg) before bedtime. 60 tablet 3 04/18/2025 ActiveStart: 09-12-2024 End: 09-23-2686thvm 1 tablet by mouth twice dailylabetalol (Normodyne) 300 mg tablet Indications: Benign essential hypertension Take 1 tablet (300 mg) by mouth 2 times a day. 60 tablet 5 09/12/2024 03/11/2025 ActiveStart: 11-09-2023 End: 11-43-8992xqgi 1 tablet by mouth twice dailylabetalol (Normodyne) 200 MG tablet Indications: Secondary hypertension TAKE 1 TABLET BY MOUTH TWICE A DAY 60 tablet 3 09/06/2024 ActivelamoTRIgine 100 mg oral tablet (20 sources)Mood Stabilizer, Anti-epileptic AgentStart: 70-40-3965bizn 100 mg by mouth once dailyLamotrigine Active 100 MG PO Daily November 09, 2023 12:00am Start: 67-27-7229tton 1 tablet by mouth twice dailylamoTRIgine (LaMICtal) 100 mg tablet Indications: Unspecified convulsions (Multi) TAKE 1 TABLET BY MOUTH TWICE A DAY 60 tablet 11 01/03/2024 ActivelamoTRIgine (LAMICTAL) 25 mg tablet levothyroxine sodium 0.025 mg oral tablet (1 source)l-ThyroxineStart: 12-07-2022 End: 48-31-8424afgy 1 tablet by mouth once daily before mealtimelevothyroxine (Synthroid, Levoxyl) 25 mcg tablet Take 1 tablet (25 mcg) by mouth once daily in the morning. Take before meals. 0 12/07/2022 04/30/2023 Discontinued (Therapy completed)lisinopril 10 mg oral tablet (20 sources)Angiotensin Converting Enzyme InhibitorStart: 05-13-2023 End: 43-37-8402tund 1 tablet by mouth once dailylisinopril 10 mg tablet Indications: Benign essential hypertension Take 1 tablet (10 mg) by mouth once daily. 90 tablet 3 05/13/2023 05/03/2024 Discontinued (Med List Cleanup)Start: 03-09-2023 End: 92-34-7776ojno 1 tablet by mouth once dailylisinopril 10 mg tablet Indications: Primary hypertension TAKE 1 TABLET BY MOUTH EVERY DAY 30 tablet 6 03/09/2023 04/30/2023 Discontinued (Entered in Error)Start: 96-66-9205jzbd 1 tablet by mouth once dailyLisinopril 10 MG Oral Tablet TAKE 1 TABLET DAILY. Quantity: 90 Refills: 3 Ordered: 02-Jan-2022 Koffi Uriarte MD Start : 14-Oct-2020 ActiveStart: 30-67-8390tjrnojsldx (ZESTRIL, PRINIVIL) 10 mg tablet Take by mouth q 24 HR. 0 10/14/2020 ActiveComment on above:Take by mouth q 24 HR.24 hr metFORMIN hydrochloride 500 mg extended release oral tablet (1 source)BiguanideStart: 11-16-2022 End: 74-75-5965qnrb 1 tablet by mouth once daily at mealtimemetFORMIN XR 500 mg 24 hr tablet Take 1 tablet (500 mg) by mouth once daily in the evening. Take wit h meals. 0 11/16/2022 04/30/2023 Discontinued (Therapy completed)naproxen 500 mg oral tablet (1 source)Nonsteroidal Anti-inflammatory DrugStart: 96-61-9760ixue 1 tablet by mouth twice dailyNaprosyn 500 mg Tab 500 mg = 1 tab(s), Oral, BID, # 120 tab(s), Refills(s) 0, [facility]: [id number] Start Date: 06/05/19 Status: Ordered MV-Min-Fe Fum-FA-DHA ( 1 PO) (20 sources) MV-Min-Fe Fum-FA-DHA ( 1 PO) Take by mouth Active promethazine hydrochloride 12.5 mg oral tablet (20 sources)PhenothiazineStart: 00-54-9889mxxt 2 tablets by mouth every six hours [...] for nausea. 30 tablet 1 02/02/2025 ActiveStart: 84-23-3682opmm 2 tablets by mouth every six hours [...] for nausea. 30 tablet 2 02/01/2025 ActiveStart: 46-56-1003emyi 2 tablets by mouth every six hours [...] 0.9 % injection 3 mL (1 source)Start: 16-72-8659vmqlzf chloride flush 0.9 % injection 3 mL Completed/Discontinued Medications MedicationDrug Class(es)DatesSig (Normalized)Sig (Original)busPIRone hydrochloride 10 mg oral tablet (3 sources)Start: 51-65-1183bfgt 1 tablet by mouth three times daily as needed busPIRone HCl - 10 MG Oral Tablet TAKE 1 TABLET 3 times daily PRN Quantity: 60 Refills: 1 Koffi Uriarte MD Start : 28-May-2020 Activegadoteridol (PROHANCE) injection 15 mL (1 source)Start: 05-09-2020 End: 10-17-7011opwmsqrbdgo (PROHANCE) injection 15 mLmelatonin 10 mg oral tablet (8 sources)Start: 65-71-1779omah 1 tablet by mouth at bedtimeMelatonin 10 MG Oral Tablet TAKE 1 TABLET Bedtime Quantity: 30 Refills: 3 Ordered: 25-Apr-2020 Doe Andrade DO Start : 25-Apr-2020 Active Patient requesting compounded melatoninmetroNIDAZOLE 500 mg oral tablet (10 sources)Nitroimidazole AntimicrobialStart: 09-09-2021 End: 57-94-4342waxi 1 tablet by mouth twice dailymetroNIDAZOLE (FLAGYL) 500 mg tablet Indications: Acute vaginitis Take 1 tablet by mouth twice daily. for vaginosis. Do not drink alcohol while taking this medication 14 tablet 0 02/03/2022 ActiveStart: 35-26-3751hirjoRDSIKCJE 0.75 % Vaginal Gel INSERT 1 APPLICATORFUL INTRAVAGINALLY AT BEDTIME NIGHTLY. Quantity: 1 Refills: 0 Ordered: 20-May-2021 Koffi Uriarte MD Start : 20-May-2021 ActiveStart: 06-09-2019 End: 71-51-4851CsesyAll-Vaginal 0.75% gel with applicator 1 bruce, Vaginal, BID, 70 gram, Refill(s) 0, [facility] Start Date: 06/09/19 Stop Date: 06/14/19 Status: OrderedComment on above:Take 1 tablet by mouth twice daily. for vaginosis. Do not drink alcohol while taking this medicationondansetron 4 mg disintegrating oral tablet (11 sources)Serotonin-3 Receptor AntagonistStart: 01-12-2025 End: 97-27-7871ofrf 1 tablet by mouth every six hours for nauseaondansetron ODT (Zofran-ODT) 4 MG disintegrating tablet Indications: Nausea and vomiting in ([facility]) Take 1 tablet (4 mg) by mouth every 6 (six) hours if needed for nausea or vomiting 30 tablet 2 01/12/2025 02/11/2025 ExpiredStart: 23-14-5924cwkh 4 mg by mouth every eight hoursOndansetron Hcl Active 4 MG PO Every 8 hours November 09, 2023 12:00amStart: 02-10-2023 End: 45-26-7035wdta 2 tablets by mouth twice daily as needed for nausea ondansetron (Zofran) 4 mg tablet Take 2 tablets (8 mg) by mouth 2 times a day as needed for nausea.02/10/2023 05/03/2024 Discontinued (Med List Cleanup)Orsythia 0.1-20 MG-MCG Oral Tablet (3 sources)Start: 76-34-7225yxou 1 tablet by mouth once dailyOrsythia 0.1-20 MG- MCG Oral Tablet TAKE 1 TABLET DAILY. Quantity: 1 Refills: 3 Ordered: 25-May-2019 Koffi Uriarte MD Start : 12-Oct-2015 Activesertraline 50 mg oral tablet (4 sources)Serotonin Reuptake InhibitorStart: 24-45-0363fxnj 1 tablet by mouth once dailySertraline HCl - 50 MG Oral Tablet TAKE 1 TABLET DAILY. Quantity: 30 Refills: 11 Ordered: 14-Oct-2020 Koffi Uriarte MD Start : 28-May-2020 Qclruz79 ml sodium chloride 9 mg/ml injection (1 source)Start: 04-18-2020 End: 04-19-20200.9 % sodium chloride bolus Problems Active Problems Problem ClassificationProblemDateDocumented DateEpisodic/ChronicAnxiety disorders (20 sources)Anxiety; Translations: [Anxiety state, unspecified]Onset: 10-02-2022 30-58-8570ScvaexpZebfwjataxnje and procreative management (7 sources)Contraception ; Translations: [Encounter for surveillance of contraceptives, unspecified]Onset: 611814-05-0087GtzfewrmHietyyue; convulsions (1 source)Idiopathic generalized epilepsy; Translations: [Nonintractable generalized idiopathic epilepsy without status epilepticus (HCC)]Chronic Essential hypertension (20 sources)Benign essential hypertension; Translations: [Benign essential hypertension]Onset: 10-02-2022 Resolved: 728722-04-2162ZgttxnfLuirmxplsp during ; abruptio placenta; placenta previa (2 sources)Antepartum hemorrhage; Translations: [Hemorrhage in early , unspecified]Onset: 44-43-7154IuavxkizEzmkijvcgxtyp and screening for infectious disease (4 sources)Encounter for screening for infections with a predominantly sexual mode of transmission; Translations: [Exposure to sexually transmissible disorder]Onset: 436438-66-7426HfftrgxlAvgepnrdq disorders (3 sources)Missed period; Translations: [Irregular menstruation, unspecified] 43-48-0096XtunlwvJslwrp and vomiting (2 sources)Nausea and vomiting; Translations: [Nausea with vomiting, unspecified]96-92-1938YeuspjppMiwydaihenr deficiencies (3 sources)Vitamin D deficiency; Translations: [Vitamin D deficiency, unspecified]Onset: 712957-81-4899XmfpjwfUyeyv complications of (1 source)Vomiting of , unspecified; Translations: [Unspecified vomiting of , unspecified as to episode of care or not applicable] 39-59-7441KpfjkkzhWeiey female genital disorders (18 sources)Vaginal discharge; Translations: [Leukorrhea, not specified as infective]Onset: 10-02-2022 Resolved: 523483-99-5068ZqsvawfiUjtud nutritional; endocrine; and metabolic disorders (3 sources)Obese class I; Translations: [Obesity, unspecified]Onset: 07-04-2021 55-33-1212LgezqurHwubb and delivery including normal (12 sources); Translations: [Encounter for supervision of normal , unspecified, unspecified trimester]78-96-6577TdzfquosUdgmq screening for suspected conditions (not mental disorders or infectious disease) (4 sources)Patient encounter status; Translations: [Encounter for other specified screening]34-26-0312QmeulobsXrtlr upper respiratory infections (20 sources)Chronic sinusitis; Translations: [Chronic pansinusitis]Onset: 10-02-2022 Resolved: 032526-26-5139AgwwuljZdngbh media and related conditions (5 sources)Chronic otitis media; Translations: [Bilateral chronic otitis media] ChronicPolyhydramnios and other problems of amniotic cavity (2 sources)Subchorionic hematoma; Translations: [Other specified disorders of amniotic fluid and membranes, second trimester, not applicable or unspecified] 36-27-6187ZglsrkwdZngkhwyx codes; unclassified (2 sources)Gestation period, 11 weeks; Translations: [11 weeks gestation of ]83-18-8538RrmuuszkXmvpwxyo codes; unclassified (2 sources)Gestation period, 12 weeks; Translations: [12 weeks gestation of ]54-02-3326DzrweaofOnfgrypg codes; unclassified (2 sources)Gestation period, 16 weeks; Translations: [16 weeks gestation of ]84-96-8685IqwfcwrfBgrpommh codes; unclassified (2 sources)Gestation period, 20 weeks; Translations: [20 weeks gestation of ]36-68-0006SwarwoszNmqxfrlc codes; unclassified (2 sources)Gestation period, 24 weeks; Translations: [24 weeks gestation of ]97-54-7580JynufsjnZgtqdrbtvdvf (1 source)Unknown / UNK(Unknown)Onset: 00-04-0782Qgaxglcofshm (3 sources)APPOINTMENT CANCELLEDOnset: 988066-33-3619Hbyvmzeqzbnb (20 sources)OB RemindersOnset: 103907-93-0629 Past or Other Problems Problem ClassificationProblemDateDocumented DateEpisodic/ChronicAcute and chronic tonsillitis (9 sources)Amygdalolith; 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 Calderon. lamotrigine;Inflammatory diseases of female pelvic organs (18 sources)Bacterial vaginosis; Translations: [Vaginitis and vulvovaginitis, unspecified]Onset: 07-04-2021 Resolved: 31-66-4615QyztnanyDxexyks and fatigue (4 sources)Fatigue; Translations: [Other fatigue]Onset: EpisodicMalposition; malpresentation (20 sources)Breech presentation; Translations: [Maternal care for breech presentation, not applicable or unspecified]Onset: 647525-77-1789Qchcvubd Nonspecific chest pain (20 sources)Chest pain; Translations: [Chest pain, unspecified]Onset: 10-02-2022 Resolved: 032204-56-1088EgshdjeoBdpsytwsaxi deficiencies (20 sources)Cobalamin deficiency; Translations: [Other B-complex deficiencies] Onset: 856273-25-7896QnfetljgFihgc circulatory disease (20 sources)Feeling of lump in throat; Translations: [Gastrointestinal malfunction arising from mental factors]Onset: 10-02-2022 Resolved: 696611-28-4476QbpzryakSokjp circulatory disease (20 sources)Elevated blood-pressure reading without diagnosis of hypertension; Translations: [Elevated blood pressure reading without diagnosis of hypertension]Onset: 10-02-2022 Resolved: 073047-48-0952VwdvtyzcUvthf ear and sense organ disorders (20 sources)Conductive hearing loss, bilateral; Translations: [Conductive hearing loss, bilateral]Onset: 10-02-2022 Resolved: 400124-10-9517CgunjowQjsed nutritional; endocrine; and metabolic disorders (9 sources)Obesity; Translations: [Obesity, unspecified]Onset: 03-28-2023 Resolved: 498953-25-2220BnyhrbtQdvtp nutritional; endocrine; and metabolic disorders (19 sources)Abnormal weight gain; Translations: [Abnormal weight gain]Onset: 10-02-2022 Resolved: 779546-07-4815HwksccrhUxxii skin disorders (20 sources)Loss of hair; Translations: [Alopecia, unspecified]Onset: 10-02-2022 Resolved: 478750-41-2544DahfuzraTxvdl upper respiratory disease (20 sources)Allergic rhinitis; Translations: [Allergic rhinitis, cause unspecified]Onset: 10-02-2022 Resolved: 819140-32-3223PcxpgwxHczpfx media and related conditions (19 sources)Chronic otitis media; Translations: [Unspecified otitis media]Onset: 10-02-2022 Resolved: 511446-02-0790EaxdfatbDwctlaml codes; unclassified (20 sources)Insomnia; Translations: [Insomnia, unspecified]Onset: 10-02-2022 Resolved: 864126-48-7062NicpmcngCaveipjtucur (1 source)R07.9 39355/8Onset: 20-04-4247Axawiaybekkg (5 sources)Patient encounter status; Translations: [Encounter for audiology evaluation]Unclassified (2 sources)Onset: 012394-20-8691WHYZRMQ: Highlighted row has not occurred! Residual codes; unclassified (17 sources)DiseaseEpisodic Results Test NameValueInterpretationReference RangeFacilityALL CBC WITH AUTO DIFFon 27-84-9629EMVCMHYBN ABSOLUTE AUTO0.0NOMS HealthcareBasophils/100 WBC (Bld)0.1 % Low0.2 - 2.0 %NOMS HealthcareEosinophils/100 WBC (Bld)0.1 %Low0.9 - 7.0 %NOMS HealthcareErythrocyte distribution width (RBC) [Ratio]12.3 %11.0 - 15.0 %NOMS HealthcareHematocrit (Bld) [Volume fraction]30.2 %Low36.0 - 48.0 %NOMS HealthcareHemoglobin (Bld) [Mass/Vol]10.2 g/dLLow12.0 - 16.0 g/dLNOND Healthcare IMMATURE GRANULOCYTES ABS AUTO0.07HighNOMS HealthcareImmature granulocytes/100 WBC (Bld)0.7 %High0.0 - 0.5 %N[facility]S HealthcareInterpretation and review of laboratory resultsAbnormalNOMS HealthcareLYMPHOCYTES ABSOLUTE AUTO2.2NOMS HealthcareLymphocytes/100 WBC (Bld)22.1 %20.5 - 60.0 %NOMS HealthcareMCH (RBC) [Entitic mass]31.8 pg26.7 - 34.0 pgScotland County Memorial HospitalMCHC (RBC) [Mass/Vol]33.8 g/dL 29.9 - 35.2 g/dLScotland County Memorial HospitalMCV (RBC) [Entitic vol]94.1 fL81.0 - 99.0 fLNOND HealthcareMONOCYTES ABSOLUTE AUTO0.6NOND HealthcareMonocytes/100 WBC (Bld)5.9 % 1.7 - 12.0 %NOM HealthcareNEUTROPHILS ABSOLUTE AUTO6.9HighScotland County Memorial Hospital Neutrophils/100 WBC (Bld)71.1 %43.0 - 75.0 %NOM HealthcarePlatelet mean volume (Bld) [Entitic vol]8.9 fLLow9.5 - 13.5 fLNOND HealthcareTBH EO #0.0NOND HealthcareTBH LNY841PMWX HealthcareTB RBC3.21LowNOND HealthcareTBH WBC9.8NOND HealthcareCLINISYNCNOMS HealthcareUrinalysis macro (dipstick) panel (U)on 13-80-0847Veppivvwn, UANegativeNegative - 4(70) +++ mg/dLNOND HealthcareBlood, UANegativeNegative - 50 Jae/mcLNOND HealthcareClarity, UAClearNOND Healthcare Color, UAYellowNOND HealthcareGlucose, UANegativeNegative - 2000(110) ++++ mg/dL [facility] HealthcareInterpretation and review of laboratory resultsAbnormalNOND HealthcareKetones, UANegativeNegative - 160(16) ++++ mg/dLCEDAR CITY HOSPITAL Healthcare Leukocytes, UA2+Negative - 500+++ Marsha/mcLNOND HealthcareNitrite, UANegative Negative - PositiveNOMS HealthcarepH, UA6.05 - 9NOND HealthcareProtein, UA NegativeNegative - 2000(20) ++++ mg/dLNOND HealthcareSpec Grav, UA1.0201 - 1.03 NOMS HealthcareUrobilinogen, UA1.00.2 - 12 mg/dLNOND HealthcareNOND Healthcare AFP, SERUM, OPEN SPINA BIFIDAon 80-31-4946FKE MOM0.82.[facility] HealthcareAFP VALUE 45.0 ng/mL.[facility] HealthcareCOMMENT:Comment.[facility] HealthcareComment on above:Jeny Avila, Ph.D., [facility] Director References: Available Upon Request. Multiples Of Median Cutoffs For AFP Elevations Payan 2.5 Black 2.8 IDD 2.0 Twins 4.5 Abbreviation Definitions IDD - Insulin Dep Diabetes OSBR - Open Spina Bifida Risk For further inquiries contact [facility] at [phone]. This test was developed and its performance characteristics determined by [facility]. It has not been cleared or approved by the Food and Drug Administration. Performed at: [facility] [address], [place] [id number] [employer] Operator: Abdulaziz Aquino [facility], Phone: [phone] GEST. AGE ON COLLECTION DATE20.7. weeksNOND HealthcareGESTAT. AGE BASED ONLMP. NOMS HealthcareComment on above:Recalculations are not recommended when gestational dating by LMP and ultrasound are within 10 days. INSULIN DEP DIABETESNo.NOMS HealthcareINTERPRETATIONComment.[facility] Healthcare Comment on above:Interpretation: Screen Negative This [...] Customer Services to discuss available options. The [employer] recommends amniocentesis be offered to women age 35 and older. MATERNAL AGE AT EDD31.8. yrNOND HealthcareMULTIPLE GESTATIONNo.[facility] OSBR RISK 1 [id number].NOMS HealthcareRACECaucasian.N[facility]S HealthcareRESULTSReport. NOMS HealthcareTEST RESULTS:Negative.NOMS FggmvrhqhnJAEEFB826. lbsNOND HealthcarePREGNANCY N N LMP [id number] 2 16 N 1 Y 183 N N N N N White/ CLINISYNCNOND HealthcareNo Panel InformationOrdered By: Radiologist Radiology on 22-44-7330BS[facility] Work Phone: No Panel Informationon 83-19-7508Nlwtzxwnw Study observation (narrative)NOMS HealthcareUS OB ANATOMYon 50-70-0184U[address] [address] Ultrasound Report Signed Patient: PRINCESS GUERRERO MR#: [id number] : 1995 Acct:[id number] Age/Sex: 29 / F ADM Date: 04/03/25 Loc: US Attending Dr: Willis Chen D.O. Ordering Physician: Willis Chen D.O. Date of Service: 04/03/25 Procedure(s): US OB anatomy Accession Number(s): [id number] cc: Willis Chen D.O.; KOFFI URIARTE M.D. [place] [address] Patient Name: PRINCESS GUERRERO MRN: [id number] date: 1995 Sex: F Assigned Patient Location: US Current Patient Location: Accession/Order Number: [id number] Exam Date: 04/03/2025 18:53 Report Date: 04/04/2025 [...] all 4 extremities were surveyed by the sausage stuffer and no abnormalities were reported. The stomach, [...] Pisano M.D. 04/04/2025 9:12 AM Dictation Location: [place] [address] Electronically authenticated by: [id number] Y Date: 04/04/2025 09:12 Dictated By: Cyndi Pisano M.D. Signed By: 04/04/25913 DD/ 1 TD/TT: Equipment Coordinator:TBHRadiology, Radiologist, - 04/04/2025 [place] [address] Ultrasound Report Signed Patient: PRINCESS GUERRERO MR#: [id number] : 1995 Acct:[id number] Age/Sex: 29 / F ADM Date: 04/03/25 Loc: US Attending Dr: Willis Chen D.O. Ordering Physician: Willis Chen D.O. Date of Service: 04/03/25 Procedure(s): US OB anatomy Accession Number(s): [id number] cc: Willis Chen D.O.; KOFFI URIARTE M.D. The [address] [id number] Patient Name: PRINCESS GUERRERO MRN: [facility]:[id number] date: 1995 Sex: F Assigned Patient Location: US Current Patient Location: Accession/Order Number: [id number] Exam Date: 04/03/2025 18:53 Report Date: 04/04/2025 [...] all 4 extremities were surveyed by the sausage stuffer and no abnormalities were reported. The stomach, [...] Pisano M.D. 04/04/2025 9:12 AM Dictation Location: [place] [address] Electronically authenticated by: [id number] Y Date: 04/04/2025 09:12 Dictated By: Cyndi Pisano M.D. Signed By: 04/04/25913 DD/ 1 TD/TT: Equipment Coordinator: JOSY Lopez OB CERVICAL LENGTHon 33-19-1376[place], [place] [address] Ultrasound Report Signed Patient: PRINCESS GUERRERO MR#: [id number] : 1995 Acct:[id number] Age/Sex: 29 / F ADM Date: 04/03/25 Loc: US Attending Dr: Willis Chen D.O. Ordering Physician: Willsi Chen D.O. Date of Service: 04/03/25 Procedure(s): US OB cervical length Accession Number(s): [id number] cc: Wlilis Chen D.O.; KOFFI URIARTE M.D. The [place] [address] Patient Name: PRINCESS GUERRERO MRN: [facility]:[id number] date: 1995 Sex: F Assigned Patient Location: Current Patient Location: Accession/Order Number: [id number] Exam Date: 04/03/2025 18:53 Report Date: 04/04/2025 [...] all 4 extremities were surveyed by the sausage stuffer and no abnormalities were reported. The stomach, [...] Pisano M.D. 04/04/2025 9:12 AM Dictation Location: [facility] Electronically authenticated by: [id number] Y Date: 04/04/2025 09:12 Dictated By: Cyndi Pisano M.D. Signed By: 04/04/2514 DD/ 1 TD/TT: Equipment Coordinator:TBHRadiology, Radiologist, - 04/04/2025 [place] [address] Ultrasound Report Signed Patient: PRINCESS GUERRERO MR#: [id number] : 1995 Acct:[id number] Age/Sex: 29 / F ADM Date: 04/03/25 Loc: US Attending Dr: Willis Chen D.O. Ordering Physician: Willis Chen D.O. Date of Service: 04/03/25 Procedure(s): US OB cervical length Accession Number(s): [id number] cc: Willis Chen D.O.; KOFFI URIARTE M.D. The [place] [id number] Patient Name: PRINCESS GUERRERO MRN: [id number] date: 1995 Sex: F Assigned Patient Location: US Current Patient Location: Accession/Order Number: [id number] Exam Date: 04/03/2025 18:53 Report Date: 04/04/2025 [...] all 4 extremities were surveyed by the sausage stuffer and no abnormalities were reported. The stomach, [...] Pisano M.D. 04/04/2025 9:12 AM Dictation Location: [facility] Electronically authenticated by: [id number] Y Date: 04/04/2025 09:12 Dictated By: Cyndi Pisano M.D. Signed By: 04/04/25913 DD/ 1 TD/TT: Equipment Coordinator: JOSY EscobarUrinalysis macro (dipstick) panel (U)on 25-72-3520Thytdntdp, UA NegativeNegative - 4(70) +++ mg/dLNOMS HealthcareBlood, [...] mg/dLNOMS HealthcareNOMS HealthcareUS OB LIMITED 1+ FETUSESon 16-94-8049FL OB LIMITED 1+ FETUSESFINDINGS: Cephalic presentation. Posterior placenta. heart rate 156. No evidence of significant amniotic band or subchronic hemorrhage. IMPRESSION: Normal viable fetus, no gestational sac abnormality TRANSCRIBED BY: ELECTRONICALLY SIGNED BY: Shelia ArellanoNot AvailableIGP,APTIMA HPV,AGE GDLNon 26-03-3972CAD GDLN ACOG TESTINGNote.[facility] HealthcareComment on above:TESTS RESULT FLAG UNITS REF RANGE LAB Clinician Provided Cytology Information Source.............Endocervix No. of containers..01 ThinPrep Vial Age Algo ACOG Evie... FLAG LEGEND: L-Low Normal,H-High Normal,LL-Alert Low,HH-Alert High <-Panic Low,>-Panic High,A-Abnormal,AA-Critical Abnormal Performed at: 01 =[address] [address] Karena Lester MD, HPV APTIMANegativeNegativeNOMS HealthcareComment on above:This nucleic acid amplification test detects fourteen high- risk HPV types (16,18,31,33,35,39,45,51,52,56,58,59,66,68) without differentiation. Performed at: =[address] [id number] [employer] Operator: Karena Lester MD, Phone: [phone] Performed at: [address] [id number] [employer] Operator: Karena Lester MD, Phone: [phone] IGP, APTIMA HPV, RFX 16/18,45Note.NOMS HealthcareComment on above:TESTS RESULT FLAG UNITS REF RANGE LAB DIAGNOSIS: 02 NEGATIVE FOR INTRAEPITHELIAL LESION OR MALIGNANCY. Specimen adequacy: 02 Satisfactory for evaluation. No endocervical component is identified. Performed by: 02 Calvin [place] Service Superintendent ([facility]) . 02 Note: Note 02 The [...] High,A-Abnormal,AA-Critical Abnormal Performed at: 02 [facility] [address] [place] [address] Karena Lester MD, SPATULA-ALONE ENDOCERVIX CLINISYNCNOMS HealthcareRECURRENT VAGINITIS (HTRX)on 19-54-0923DEILTOYQX VAGINAE 0NOMS HealthcareATOPOBIUM VAGINAENot detectedNOMS HealthcareBVAB 2,3 (BACTERIAL VAGINOSIS ASSOCIATED BACTERIA 2, 3); MOBILUNCUS [id number] HealthcareBVAB 2,3 (BACTERIAL VAGINOSIS ASSOCIATED BACTERIA 2, 3); MOBILUNCUS SPPNot detectedNOMS HealthcareCANDIDA ALBICANS, PARAPSILOSIS, [id number] HealthcareCANDIDA ALBICANS, PARAPSILOSIS, TROPICALISNot detectedNOMS HealthcareCANDIDA GLABRATA0 NOMS HealthcareCANDIDA GLABRATANot detectedNOMS HealthcareCANDIDA [id number] HealthcareCANDIDA KRUSEINot detectedNOMS HealthcareCHLAMYDIA [id number] HealthcareCHLAMYDIA TRACHOMATISNot detectedNOMS HealthcareGARDNERELLA VAGINALIS0 NOMS HealthcareGARDNERELLA VAGINALISNot detectedNOMS HealthcareMEGASPHAERA (TYPES 1, 2)0NOMS HealthcareMEGASPHAERA (TYPES 1, 2)Not detectedNOMS Healthcare MYCOPLASMA [id number] HealthcareMYCOPLASMA GENITALIUMNot detectedNOMS HealthcareNEISSERIA [id number] HealthcareNEISSERIA GONORRHOEAENot detected NOMS HealthcareTRICHOMONAS [id number] HealthcareTRICHOMONAS VAGINALISNot detectedNOMS HealthcareNOMS HealthcareUrinalysis macro (dipstick) panel (U)on 32-75-7543Dlrzedars, UANegativeNegative - 4(70) +++ mg/dLNOND HealthcareBlood, UAPositiveNegative - 50 Jae/mcLNOND HealthcareClarity, UAClearNOMS Healthcare Color, UAYellowNOMS HealthcareGlucose, UANegativeNegative - 2000(110) ++++ mg/dL [facility] HealthcareInterpretation and review of laboratory resultsAbnormalNOND HealthcareKetones, UANegativeNegative - 160(16) ++++ mg/dLNOND Healthcare Leukocytes, UANegativeNegative - 500+++ Marsha/mcLNOND HealthcareNitrite, UA NegativeNegative - PositiveNOMS HealthcarepH, UA65 - 9NOMS HealthcareProtein, UA NegativeNegative - 2000(20) ++++ mg/dLNOND HealthcareSpec Grav, UA1.021 - 1.03 NOMS HealthcareUrobilinogen, UA1.00.2 - 12 mg/dLNOMS HealthcareNOMS HealthcareUS OB < 14 WEEKS EARLYon 48-40-8596OU OB < 14 WEEKS EARLYFINDINGS: Single viable [...] period was 11/13/2024.Urinalysis macro (dipstick) panel (U)on 33-05-8325Lcvuenbln, UANegativeNegative - 4(70) +++ mg/dLNOND Healthcare Blood, UANegativeNegative - 50 Jae/mcLCEDAR CITY HOSPITAL HealthcareClarity, UAClearNOMS HealthcareColor, UAYellowNOND HealthcareGlucose, UANegativeNegative - 2000(110) ++++ mg/dLNOND HealthcareInterpretation and review of laboratory resultsNormal NOMS HealthcareKetones, UAPositiveNegative - 160(16) ++++ mg/dLCEDAR CITY HOSPITAL Healthcare Leukocytes, UANegativeNegative - 500+++ Marsha/[facility] HealthcareNitrite, UA NegativeNegative - PositiveNOND HealthcarepH, UA55 - 9NOMS HealthcareProtein, UA TraceNegative - 2000(20) ++++ mg/dLNOND HealthcareSpec Grav, UA1.031 - 1.03NOND HealthcareUrobilinogen, UA1.00.2 - 12 mg/dLNOMS [facility] HospitalNOMS HealthcareBOX TESTon 82-70-5247WEA TEST SENT OUTYESCEDAR CITY HOSPITAL GtxsubjmxvAGX0QHPHCVJKU HealthcareBOX2 01/22/25NOND HealthcareCLINISYNCNOMS HealthcareUS Pelvis transvaginalon 01-14-2025 EXAM: US [...] II, MD, PHD at 14-Jan-2025 10:04:37 PM [facility]eleradiology IMAGINGSluss, MD Rosenda - 01/14/2025 EXAM: [...] II, MD, PHD at 14-Jan-2025 10:04:37 PM [facility] NOMS HealthcareUS Pelvis transvaginalOrdered By: Rosenda Torres on 47-84-9757RED[facility] Work Phone: HCG ( test) Ql (U)on 25-63-4810Svspxvbcuglkty and review of laboratory resultsAbnormalNOND HealthcarePreg Test, UrPositive NegativeNOCedar County Memorial HospitalNOND HealthcareUS OB TRANSVAGINALon 48-64-9732AD OB TRANSVAGINALEXAM: US OB TRANSVAGINAL HISTORY: Dating. [...] bilateral ovaries. Interpreted by: Electronically signed by ROSENAD TORRES II, MD, PHD at 14-Jan-2025 10:04:37 PM [facility]-[place] TeleradiologyNormalNot AvailableComment on above:Order Comment: US OB TRANSVAGINAL No LMP recorded.US Pelvis transvaginalon 98-97-8649Sdjtvvwhg Study observation (narrative)NOMS HealthcareUrinalysis macro (dipstick) panel (U)on 01-12-2025 Bilirubin, UANegativeNegative - 4(70) +++ mg/dLNOMS HealthcareBlood, UANegative Negative - 50 Jae/mcLNOMS HealthcareClarity, UAClearNOMS HealthcareColor, UA YellowNOMS HealthcareGlucose, UANegativeNegative - 2000(110) ++++ mg/dLNOMS HealthcareInterpretation and review of laboratory resultsAbAspirus Ironwood Hospital Ketones, UANegativeNegative - 160(16) ++++ mg/dLNOMS HealthcareLeukocytes, UA TraceNegative - 500+++ Marsha/mcLNOMS HealthcareNitrite, UANegativeNegative - PositiveNOMS HealthcarepH, UA75 - 9NOMS HealthcareProtein, UANegativeNegative - 2000(20) ++++ mg/dLNOMS HealthcareSpec Grav, UA1.021 - 1.03N[facility]S Healthcare Urobilinogen, UA0.20.2 - 12 mg/dLNOMS HealthcareNOMS Vvfnzhuyzj63-ybcssvfrzktutl D3 [Mass/Vol]on 671016-ncubmxlsetokgl D [Mass/Vol]26 ng/mLLow30 - 100 ng/mLSelect Medical [facility] Hospital, AvonComment on above:Vitamin D Status 25-OH Vitamin D: Deficiency: <20 ng/mL Insufficiency: 20 - 29 ng/mL Optimal: > or = 30 ng/mL For 25-OH Vitamin D testing on patients on D2-supplementation and patients for whom quantitation of D2 and D3 fractions is required, the QuestAssureD(TM) 25-OH VIT D, (D2,D3), LC/MS/MS is recommended: order code 96938 (patients >2yrs). See Note 1 Note 1 For additional information, please refer to http://education.Eko.SpecifiedBy/faq/XMX371 (This link is being provided for informational/ educational purposes only.) Interpretation and review of laboratory resultsAbOhioHealth Marion General Hospital (H/H, RBC, INDICES, WBC, PLT)on 29-07-6245Sndyltuubyc distribution width (RBC) [Ratio]12.3 %Gmydbq68.0-15.0Quest DiagnosticsComment on above: Performed By: #### 7600, 56942, 53328, 927, 175, #### [facility] [place] [address] Pet Stylist: Brandon Camara MDHematocrit (Bld) [Volume fraction]38.8 %Normal 35.0-45.0Quest DiagnosticsComment on above:Performed By: #### 7600, 39472, 60455, 927, 175, #### [facility] [place] [address] Pet Stylist: Brandon Camara MDHemoglobin (Bld) [Mass/Vol]12.7 g/dLNormal 11.7-15.5Quest DiagnosticsComment on above:Performed By: #### 7600, 56332, 06445, 927, 1758, #### [facility] [place] [address] Pet Stylist: Brandon Camara MDMCH (RBC) [Entitic mass]28.4 blImzeqw05.0-33.0 Quest DiagnosticsComment on above:Performed By: #### 7600, 94948, 30100, 927, 175, #### [facility] [place] [address] Pet Stylist: Brandon DOTYCHC (RBC) [Mass/Vol]32.7 g/dGOdwbuf78.0-36.0 Quest DiagnosticsComment on above:Result Comment: For adults, a slight decrease in the calculated MCHC value (in the range of 30 to 32 g/dL) is most likely not clinically significant; however, it should be interpreted with caution in correlation with other red cell parameters and the patient's clinical condition.Performed By: #### 7600, 31982, 21874, 927, 1759, 90297 #### [facility] [place] [address], [address] [place] [address] Pet Stylist: Brandon Camara MDMCV (RBC) [Entitic vol]86.8 bNGkwuvf81.0-100.0 Quest DiagnosticsComment on above:Performed By: #### 7600, 60221, 40935, 927, 1759, 09253 #### [facility] [place] [address], [address] [place] [address] Pet Stylist: Brandon Camara MDPlatelet mean volume (Bld) [Entitic vol]9.0 fL Normal7.5-12.5Quest DiagnosticsComment on above:Performed By: #### 7600, 78820, 74312, 927, 175, #### [facility] [place] [address] [place], [place] [phone] Pet Stylist: Brandon Camara MDPlatelets (Bld) [#/Vol]260 10*3/uLNormal 140-400Quest DiagnosticsComment on above:Performed By: #### 7600, 40869, 23350, 927, 1759, 21984 #### [facility] [place] [address], [address] [place], [place] [phone] Pet Stylist: Brandon Camara MDRBC (Bld) [#/Vol]4.47 10*6/uLNormal3.80-5.10 Quest DiagnosticsComment on above:Performed By: #### 7600, 44104, 73786, 927, 1759, 16353 #### [facility] [place] [address], [address] [place] [address] Pet Stylist: Brandon Camara MDWBC (Bld) [#/Vol]5.5 10*3/uLNormal3.8-10.8 Quest DiagnosticsComment on above:Performed By: #### 7600, 00195, 46178, 927, 1759, 32449 #### [facility] [place] [address], [address] [place] [address] Pet Stylist: Brandon Camara MDCBC panel Auto (Bld)on 41-84-3218Emsmjmqaxeb distribution width (RBC) [Ratio]12.3 %11.0 - 15.0 %[facility], AvonHematocrit (Bld) [Volume fraction]38.8 %35.0 - 45.0 %[facility], AvonHemoglobin (Bld) [Mass/Vol]12.7 g/dL11.7 - 15.5 g/dL [facility] (RBC) [Entitic mass]28.4 pg27.0 - 33.0 pg [facility] HospitalHC (RBC) [Mass/Vol]32.7 g/dL32.0 - 36.0 g/dL [facility], AvonComment on above:For adults, a slight decrease in the calculated MCHC value (in the range of 30 to 32 g/dL) is most likely not clinically significant; however, it should be interpreted with caution in correlation with other red cell parameters and the patient's clinical condition. MCV (RBC) [Entitic vol]86.8 fL80.0 - 100.0 [facility] Platelet mean volume (Bld) [Entitic vol]9 fL7.5 - 12.5 [facility] HospitalPlatelets (Bld) [#/Vol]260 10*3/[facility] - DublinRBC (Bld) [#/Vol]4.47 10*6/[facility] - DublinWBC (Bld) [#/Vol]5.5 10*3/[facility] - DublinCOMPREHENSIVE METABOLIC PANEL W/ANION GAPon 83-11-2990Ozggbtd [Mass/Vol]4.8 g/dLNormal3.6-5.1Quest DiagnosticsComment on above:Performed By: #### 2314, 47452, 12120, 026, 1751, 62661 #### [facility] [address] [facility], [address] [place] [address] Pet Stylist: Brandon Camara MDALP [Catalytic activity/Vol]60 U/GQdmphs26-637 Quest DiagnosticsComment on above:Performed By: #### 7600, 68284, 73341, 927, 175, #### [facility] of [address], [address] [place] [address] Pet Stylist: Brandon Camara MDALT [Catalytic activity/Vol]14 U/LNormal6-29 Quest DiagnosticsComment on above:Performed By: #### 7600, 61174, 95059, 92, 1758, #### [facility] of [address], [address] [place] [address] Pet Stylist: Brandon Camara MDAST [Catalytic activity/Vol]12 U/BEeqvjz53-58 Quest DiagnosticsComment on above:Performed By: #### 7600, 31782, 39152, 92, 1758, #### [facility] of [address], [address] [place] [address] Pet Stylist: Brandon Camara MDBilirubin [Mass/Vol]0.4 mg/dLNormal0.2-1.2 Quest DiagnosticsComment on above:Performed By: #### 7600, 92906, 28387, 92, 1758, #### [facility] [place] [address] Pet Stylist: Brandon Camara MDCalcium [Mass/Vol]9.6 mg/dLNormal8.6-10.2Quest DiagnosticsComment on above:Performed By: #### 7600, 91531, 42815, 92, 1758, #### [facility] of [address], [address] [place] [address] Pet Stylist: Brandon Camara MDChloride [Moles/Vol]102 mmol/AQpmrmt37-791 Quest DiagnosticsComment on above:Performed By: #### 7600, 24243, 96752, 92, 175, #### [facility] [place] [address] Pet Stylist: Brandon Merati MDCO2 [Moles/Vol]28 mmol/THrigbb57-94Nmtez DiagnosticsComment on above:Performed By: #### 7600, 58275, 33067, 927, 175, #### [facility] [place] [address] Pet Stylist: Brandon MOREIRAreatinine [Mass/Vol]0.86 mg/dLNormal0.50-0.97 Quest DiagnosticsComment on above:Performed By: #### 7600, 22059, 75688, 92, 175, #### [facility] [place] [address] Pet Stylist: Brandon Camara MDELECTROLYTE BALANCE7 mmol/L (calc)Normal7-17 Quest DiagnosticsComment on above:Performed By: #### 7600, 28216, 45049, 92, 1758, #### [facility] [place] [address] Pet Stylist: Brandon Camara MDGFR/1.73 sq M.predicted among non-blacks MDRD (S/P/Bld) [Vol rate/Area]93 mL/min/{1.73_m2}Normal> OR = 60[facility] Comment on above:Performed By: #### 7600, 83278, 59005, 92, 1758, #### [facility] [place] [address] Pet Stylist: Brandon Camara MDGlucose [Mass/Vol]90 mg/lXTmckza93-60Hajco DiagnosticsComment on above:Result Comment: Fasting reference intervalPerformed By: #### 7600, 02208, 41565, 927, 175, 33909 #### [facility] [place] [address] Pet Stylist: Brandon Camara MDPotassium [Moles/Vol]4.5 mmol/LNormal3.5-5.3 Quest DiagnosticsComment on above:Performed By: #### 7600, 12746, 26248, 927, 1759, 45934 #### [facility] [place] [address] Pet Stylist: Brandon Camara MDProtein [Mass/Vol]7.4 g/dLNormal6.1-8.1Quest DiagnosticsComment on above:Performed By: #### 7600, 89325, 94064, 927, 1759, 56787 #### [facility] [address], [address] [place] [address] Pet Stylist: Brandon Camara MDSodium [Moles/Vol]137 mmol/VBtffeh163-810Izdub DiagnosticsComment on above:Performed By: #### 7600, 86363, 01464, 927, 1759, 64584 #### [facility] of [address], [address] [place] [address] Pet Stylist: Brandon Camara MDUrea nitrogen [Mass/Vol]7 mg/dLNormal7-25Quest DiagnosticsComment on above:Performed By: #### 7600, 38479, 43122, 927, 1759, 57596 #### [facility] [place] [address] Pet Stylist: Brandon Camara MDComprehensive metabolic 2000 panelon 70-87-8383Owurtsc [Mass/Vol]4.8 g/dL3.6 - 5.1 g/dLUnMount St. Mary HospitalALP [Catalytic activity/Vol]60 U/L31 - 125 U/[facility] GeneralALT [Catalytic activity/Vol]14 U/L6 - 29 U/[facility] GeneralAnion gap [Moles/Vol]7 mmol/[facility] GeneralAST [Catalytic activity/Vol]12 U/L10 - 30 U/[facility] Bilirubin [Mass/Vol]0.4 mg/dL0.2 - 1.2 mg/dLUnMount St. Mary Hospital Calcium [Mass/Vol]9.6 mg/dL8.6 - 10.2 mg/dLUnMount St. Mary Hospital Chloride [Moles/Vol]102 mmol/L98 - 110 mmol/[facility] CO2 [Moles/Vol]28 mmol/L20 - 32 mmol/[facility] Creatinine [Mass/Vol]0.86 mg/dL0.50 - 0.97 mg/dLUnMount St. Mary HospitalGFR/1.73 sq M.predicted among non-blacks MDRD (S/P/Bld) [Vol rate/Area] 93 mL/min/{1.73_m2}> OR = 60 mL/min/1.04q8ZdbxjczmrmMount St. Mary Hospital Glucose [Mass/Vol]90 mg/dL65 - 99 mg/dLUnMount St. Mary HospitalComment on above: Fasting reference interval Potassium [Moles/Vol]4.5 mmol/L3.5 - 5.3 mmol/[facility] Protein [Mass/Vol]7.4 g/dL6.1 - 8.1 g/dLUnMount St. Mary HospitalSodium [Moles/Vol]137 mmol/L135 - 146 mmol/[facility] GeneralUrea nitrogen [Mass/Vol]7 mg/dL7 - 25 mg/dLUnMount St. Mary HospitalLIPID PANEL, STANDARDon 14-74-8606Ethjvyvtlrn [Mass/Vol]167 mg/dLNormal<200Quest DiagnosticsComment on above:Order Comment: FASTING:YES FASTING: YESPerformed By: #### 7600, 72572, 14360, 927, 1759, 90532 #### [facility] [address], [address] [place] [address] Pet Stylist: Brandon Camara MDCholesterol in HDL [Mass/Vol]52 mg/dLNormal> OR = 50Quest DiagnosticsComment on above:Order Comment: FASTING:YES FASTING: YESPerformed By: #### 7600, 34850, 31791, 927, 1759, 23174 #### [facility] [address] , [address] [place] [address] Pet Stylist: Brandon Camara MDCholesterol in LDL [Mass/Vol]95 mg/dLNormal [...] LDL-C. Tres SS et al. STEPHANIE. 2013;310(19): 7401-1662 (http://education.Oricula [employer]rapeutics/faq/TBE172)Performed By: #### 7600, 08193, 81020, 927, 1759, 52779 #### [facility] [address], [address] [place] [address] Pet Stylist: Brandon MOREIARholesterojohn.total/Cholesterol in HDL [Mass ratio]3.2 {ratio}Normal<5.0Quest DiagnosticsComment on above:Order Comment: FASTING:YES FASTING: YESPerformed By: #### 7600, 19836, 83859, 927, 1759, 89370 #### [facility] [address], [address] [place], [place] [address] Pet Stylist: Brandon NICOLE HDL EFZSIFBHHNM387 mg/dL (calc)Normal<130 Quest DiagnosticsComment on above:Order Comment: FASTING:YES FASTING: YESResult Comment: For patients with diabetes plus 1 major ASCVD risk factor, treating to a non-HDL-C goal of <100 mg/dL (LDL-C of <70 mg/dL) is considered a therapeutic option.Performed By: #### 7600, 05773, 27166, 927, 1759, 72926 #### [facility] [address], [address] [place], [place] [address] Pet Stylist: Brandon Camara MDTriglyceride [Mass/Vol]103 mg/dLNormal<150 [facility] DiagnosticsComment on above:Order Comment: FASTING:YES FASTING: YESPerformed By: #### 7600, 66449, 87657, 927, 1758, 04784 #### [facility] [address] [facility], [address] [place] [address] Pet Stylist: Brandon Camara MDLipid 1996 panelon 31-04-4375Ieuksqqywbt [Mass/Vol]167 mg/dLNINF - 200 mg/dLUnMount St. Mary HospitalCholesterol in HDL [Mass/Vol]52 mg/dL> OR = 50UnMount St. Mary HospitalCholesterol in LDL [Mass/Vol]95 mg/dLmg/dL (calc)[facility], AvonComment on above:Reference range: <100 Desirable range <100 mg/dL for primary prevention; <70 mg/dL for patients with CHD or diabetic patients with > or = 2 CHD risk factors. LDL-C is now calculated using the Dean calculation, which is a validated novel method providing better accuracy than the Friedewald equation in the estimation of LDL-C. Tres SS et al. STEPHANIE. 2013;310(19): 3556-3361 (http://education.O[employer]ula [employer]/faq/TNC795) Cholesterol non HDL [Mass/Vol]115 mg/dLNINFSelect Medical [facility], [place] Comment on above:For patients with diabetes plus 1 major ASCVD risk factor, treating to a non-HDL-C goal of <100 mg/dL (LDL-C of <70 mg/dL) is considered a therapeutic option. Cholesterol.total/Cholesterol in HDL [Mass ratio]3.2 {ratio}NINTrumbull Regional Medical CenterTriglyceride [Mass/Vol]103 mg/dLNINF - 150 mg/dLUnMount St. Mary HospitalNo Panel Informationon 90-89-4532FBGKSGH:YES FASTING: YESQUEST DIAGNOSTICS-HILL AFBUnMount St. Mary HospitalTSH W/REFLEX TO FT4on 05-30-7985TYE W/REFLEX TO FT42.63 mIU/LNormalQuest [facility] Comment on above:Result Comment: Reference Range > or = 20 Years 0.40-4.50 Ranges First trimester 0.26-2.66 Second trimester 0.55-2.73 Third trimester 0.43-2.91Performed By: #### 6490, 68338, 02088, 927, 1758, 73546 #### [facility] [address], [address] [place] [address] Pet Stylist: Brandon Camara MDPEACEHEALTH ST. [facility] with reflex to Free T4 if abnormalon 76-15-7696ZEP Qn2.63 m[IU]/LmIU/[facility] GeneralComment on above:Reference Range > or = 20 Years 0.40-4.50 Ranges First trimester 0.26-2.66 Second trimester 0.55-2.73 Third trimester 0.43-2.91 VITAMIN B12on 88-40-2105Dpipxzobj (Vitamin B12) [Mass/Vol]402 pg/mLNormal 200-1100Quest DiagnosticsComment on above:Performed By: #### 7600, 76402, 49659, 911, 1574, 65009 #### [facility] [address], [address] [place] [address] Pet Stylist: Brandon Camara MDVITAMIN D,25-OH,TOTAL,IAon 62-02-9844WUHIXVC D,25-OH,TOTAL,IA26 ng/jFRjo92-959Qkfuj DiagnosticsComment on above:Result Comment: Vitamin D Status 25-OH Vitamin D: Deficiency: <20 ng/mL Insufficiency: 20 - 29 ng/mL Optimal: > or = 30 ng/mL For 25-OH Vitamin D testing on patients on D2-supplementation and patients for whom quantitation of D2 and D3 fractions is required, the QuestAssureD(TM) 25-OH VIT D, (D2,D3), LC/MS/MS is recommended: order code 56331 (patients >2yrs). See Note 1 Note 1 For additional information, please refer to http://education.Eko.SpecifiedBy/faq/KCI859 (This link is being provided for informational/ educational purposes only.)Performed By: #### 7600, 98897, 50463, 921, 1023, 04089 #### [facility] [address], [address] [place] [address] Pet Stylist: Brandon Camara MDVitamin B12on 13-14-3275Wehctvwty (Vitamin B12) [Mass/Vol]402 pg/mL200 - 1100 pg/mLUnMount St. Mary Hospital Quantiferon-TB Plus (Client Incubated)on 76-88-8443Cqvum interferon background IA Qn (Bld)0.01 International_Unit/mLInvalid Interpretation [facility] HospitalComment on above:Performed By: #### [id number] #### [facility] [address] [place] [address]. tuberculosis stim IFN-g by CD4+ CD8+ T-cells corrected for background Qn (Bld)0.02 International_Unit/mLInvalid Interpretation CodeSt. Elizabeth HospitalComment on above:Performed By: #### [id number] #### [facility] [address] [place] [address]. tuberculosis stim IFN-g by CD4+ T-cells corrected for background Qn (Bld)0.03 International_Unit/mLInvalid Interpretation [facility] HospitalComment on above:Performed By: #### [id number] #### [facility] [address] [place] [address]. tuberculosis stim IFN-g Ql (Bld) [Interp]NegativeInvalid Interpretation CodeNegativeSt. Elizabeth HospitalComment on above:Result Comment: No response to [...] interferon gamma. Chemiluminescence immunoassay methodology Performed at: [facility] [address] [place] [id number] PhD Leeanne GarciaPerformed By: #### [id number] #### [facility] [address] [place], [place] [address]Mitogen stimulated gamma interferon corrected for background Qn (Bld)>10.00Invalid Interpretation [facility] HospitalComment on above:Performed By: #### [id number] #### [facility] [address] [place] [address]Dbslzkq comment (Unsp spec) [Interp]CommentInvalid Interpretation [facility] HospitalComment on above:Result Comment: QuantiFERON-TB Gold [...] a control for the test.Performed By: #### [id number] #### [facility] [address] [place] [address]Trg Bs Abon 73-06-7120GST surface Ab Ql (S)ReactiveInvalid Interpretation [facility] HospitalComment on above:Result Comment: Non Reactive: Not immune to HBV infection. Equivocal: Unable to determine if anti-HBs is present at levels consistent with immunity. Reactive: Anti-HBs concentration detected at greater than 10 mIU/mL. Individual is considered to be immune to infection with HBV. Performed at: [address] [id number] PhD Leeanne Moyaformed By: #### [id number] #### [facility] [address] [place] [address]Njzvndz/Mumps/Rubella Immunityon 55-57-8754IeO IgG IA Qn (S) 206.0 A unit/mLInvalid Interpretation CodeImmune >16.4[facility] BaltimoreComment on above:Result Comment: Negative <13.5 Equivocal 13.5 - 16.4 Positive >16.4 Presence of antibodies to Rubeola is presumptive evidence of immunity except when acute infection is suspected.Performed By: #### [id number] #### [facility] [address] [place] [address]PwY IgG IA Qn (S)38.5 A unit/mLInvalid Interpretation Code Immune >10.9St. Elizabeth HospitalComment on above:Result Comment: Negative <9.0 Equivocal 9.0 - 10.9 Positive >10.9 A positive result generally indicates past exposure to Mumps virus or previous vaccination. Performed at: [facility] [address] [place], [place] [id number] PhD Leeanne GarciaPerformed By: #### [id number] #### [facility] [address] [place] [address]Oxbqiuz virus IgG Qn (S)1.07 [IU]/mLInvalid Interpretation Code Immune >0.99St. Elizabeth HospitalComment on above:Result Comment: Non- immune <0.90 Equivocal 0.90 - 0.99 Immune >0.99Performed By: #### [id number] #### [facility] [address] [place] [address]Xwgis IgGon 60-08-0508HWH IgG IA Qn (S)1518Invalid Interpretation CodeImmune >165St. Elizabeth HospitalComment on above:Result Comment: Negative <135 Equivocal 135 - 165 Positive >165 A positive result generally indicates exposure to the pathogen or administration of specific immunoglobulins, but it is not indication of active infection or stage of disease. Performed at: [facility] [address] [place], [place] [id number] PhD Leeanne GarciaPerformed By: #### [id number] #### [facility] [address] [place] [address]Boeylik Formson 62-99-6258Fdbbzli Forms [id number]#1.00OTGTIFFTriHealth McCullough-Hyde Memorial HospitalED Clinical Summaryon 68-65-8835AD [facility] [address] [place], [place] [id number] Clinical Summary PERSON INFORMATION Name: PRINCESS GUERRERO Age: 28 Years Sex: FEMALE : 1995 MRN: Acct#: Visit Reason: Medical screening exam; OTTERBEIN PHYSICAL Arrival: 12/15/2023 11:27:18 Discharge: 12/15/2023 11:57:00 LOS: 000 00:30 Check In: 12/15/2023 11:27:18 Checkout: 12/15/2023 11:57:00 Address: [address] [place], [place] [id number] PCP: Provider, None PROVIDER INFORMATION Provider Role [...] blood pressure. With: Address: When: None Provider [address] [place] [address] DIAGNOSIS: Elevated blood pressure reading; Physical exam Patient Understands: Yes - Patient/family/caregiver verbalizes understanding of instructions given Comment:[facility] HospitalED Patient Summary 06-24-0526JE Patient Summary [facility] ? Urgent Care [address] [place] [address] PATIENT DISCHARGE INSTRUCTIONS Patient Information Name: PRINCESS [...] blood pressure. With: Address: When: None Provider [address] [place] [address] Hypertension, Adult High blood pressure (hypertension) is [...] as fish, chicken wit (more content not included)...[facility] HospitalUrgent Care Note- Provideron 12-84-4852Vavhic Care Note- ProviderPatient: PRINCESS GUERRERO Age: 28 [...] - pharynx pink and moist. NECK: -Supple (tiwo-kd-cdjuu): non-tender. CARD: -Rate and rhythm: Regular RESP: [...] Plan Assessment and Plan: Diagnosis: Physical exam (TCJ26-CF Z00.00), Elevated blood pressure reading (FCX30-GW R03.0). Cleared for employment [Electronically Signed on: 12/15/2023 11:52 EDT] TAARS FAUSTIN [Verified on: 12/15/2023 11:52 EDT] TARAS FAUSTIN [facility] 77-78-5779[facility]hybzsSaint [facility] [address] [place], [place] [id number] PATIENT DISCHARGE INSTRUCTIONS Patient Information Name: PRINCESS [...] blood pressure. With: Address: When: None Provider [address] [place] [address] Medication Information: The exam and treatment you received today in the [facility] were for an urgent problem and are not intended as complete care. It is important for you to follow up with a doctor, nurse practitioner, or physician?s assistant sales manager for ongoing care. If your symptoms become [...] so we can reach you if necessary. [facility] has provided you with a complete list of medications post discharge. Please inform your high voltage electrician/provider of your visit and for further instruction [...] too much fat, sugar, (more content not included)...[facility] 31-21-5039WJczkvged: BS24-10 Received: 08/04/23 Status: LAZARA Lyn Num: [id number] Spec Type: Surgical Subm Dr: Willis Chen Tissues: A Placenta - 3rd Trimester (Greater than 28 weeks) (PLACENTA) Procedures: HE/3, Gross/Micro L5 Age/ Patient Sex Location Account Attending Physician Princess Cantu 27/F LABELL [id number] Willis Chen SPEC NUM: [id number] RECD: 08/04/23 STATUS: LAZARA LYN NUM: [id number] JOSE: 08/04/[address]: Willis Chen ENTERED: 08/04/23 [facility] DR: Giselle,Lab SPEC TYPE: [...] parenchyma up to 3.1 cm in thickness. Envelope Patternmaker sections are submitted in 3 cassettes as follows: A1 - membranes, umbilical cord, and decidua basalis A2 - Central placenta full-thickness A3 - Peripheral placenta, full-thickness Specimen: [id number] Received: 08/04/23 Status: LAZARA Lyn Num: [id number] Spec Type: Surgical Subm Dr: Willis Chen Tissues: A Placenta - 3rd Trimester (Greater than 28 weeks) (PLACENTA) Procedures: HE/3, Gross/Micro L5 Patient: Princess Cantu [id number] (Continued) Specimen: [id number] Received: 08/04/23 (Continued) Signed (signature on file) Juliet Sykes MD 08/08/232229 Specimen: BS24- Received: 08/04/23 Status: LAZARA Lyn Num: [id number] Spec Type: Surgical Subm Dr: Willis Chen Tissues: A Placenta - 3rd Trimester (Greater than 28 weeks) (PLACENTA) Procedures: DELMY/3Jesica/Danitza L5 Patient: Princess Cantu [id number] (Continued) Specimen: BS24-10 Received: 08/04/23 (Continued) CPT Codes 90967 Specimen: BS24- Received: 08/04/23 Status: LAZARA Lyn Num: [id number] Spec Type: Surgical Subm Dr: Willis Chen Tissues: A Placenta - 3rd Trimester (Greater than 28 weeks) (PLACENTA) Procedures: DELMYJesica Ott/Danitza L5 Patient: Princess Cantu [id number] (Continued) Signed (signature on file) Juliet Sykes MD 08/08/[address] [place], [place] [address]US OB BPP W NON-STRESS on 96-25-2231[place], [place] [address] Ultrasound Report Signed Patient: PRINCESS CANTU MR#: [id number] : 1995 Acct:[id number] Age/Sex: 27 / F ADM Date: 07/31/23 Loc: US Attending Dr: Willis Chen D.O. Ordering Physician: Willis Chen D.O. Date of Service: 07/31/23 Procedure(s): US OB BPP w non-stress Accession Number(s): [id number] cc: Willis Chen D.O.; Physician,Non-Staff Jake [address] [address] Patient Name: PRINCESS CANTU MRN: [id number] date: 1995 Sex: F Assigned Patient Location: US Current Patient Location: US Accession/Order Number: [id number] Exam Date: 07/31/2023 11:04 Report Date: 08/03/2023 [...] M.D. Signed By: 08/03/23719 DD/ 7 TD/TT: Equipment Coordinator:TBHRadiology, Radiologist, - 09/22/2023 [place] [address] Ultrasound Report Signed Patient: PRINCESS CANTU MR#: [id number] : 1995 Acct:[id number] Age/Sex: 27 / F ADM Date: 07/31/23 Loc: US Attending Dr: Willis Chen D.O. Ordering Physician: Willis Chen D.O. Date of Service: 07/31/23 Procedure(s): US OB BPP w non-stress Accession Number(s): [id number] cc: Willis Chen D.O.; Physician,Non-Staff Jake The [place] [phone] Patient Name: PRINCESS CANTU MRN: [id number] date: 1995 Sex: F Assigned Patient Location: US Current Patient Location: US Accession/Order Number: [id number] Exam Date: 07/31/2023 11:04 Report Date: 08/03/2023 [...] M.D. Signed By: 08/03/23719 DD/ 7 TD/TT: Equipment Coordinator: JOSY HealthcareRadiology Study observation (narrative)NOMS HealthcareUS OB BPP W NON-STRESSOrdered By: Radiologist Radiology on 41-37-5211JHWL [employer] Work Phone: US OB BPP W NON-STRESSon [phone], [place] [address] Ultrasound Report Signed Patient: PRINCESS CANTU MR#: [id number] : 1995 Acct:[id number] Age/Sex: 27 / F ADM Date: 07/24/23 Loc: US Attending Dr: Willis Chen D.O. Ordering Physician: Willis Chen D.O. Date of Service: 07/24/23 Procedure(s): US OB BPP w non-stress Accession Number(s): [id number] cc: Willis Chen D.O.; Physician,Non-Staff M.DLima The [place] [phone] Patient Name: PRINCESS CANTU MRN: [id number] date: 1995 Sex: F Assigned Patient Location: [facility] Current Patient Location: Accession/Order Number: [id number] Exam Date: 07/24/2023 08:19 Report Date: 07/26/2023 [...] M.D. Signed By: 07/26/23711 DD/ 8 TD/TT: Equipment Coordinator:RAYNAadiologchristina, Radiologist, MD - 09/22/2023 [place] [address] Ultrasound Report Signed Patient: PRINCESS CANTU MR#: [id number] : 1995 Acct:[id number] Age/Sex: 27 / F ADM Date: 07/24/23 Loc: US Attending Dr: Willis Chen D.O. Ordering Physician: Willis Chen D.O. Date of Service: 07/24/23 Procedure(s): US OB BPP w non-stress Accession Number(s): [id number] cc: Willis Chen D.O.; Physician,Non-Staff M.No The [place] [phone] Patient Name: PRINCESS CANTU MRN: [id number] date: 1995 Sex: F Assigned Patient Location: [facility] Current Patient Location: Accession/Order Number: [id number] Exam Date: 07/24/2023 08:19 Report Date: 07/26/2023 [...] M.D. Signed By: 07/26/23711 DD/ 8 TD/TT: Equipment Coordinator: JOSY HealthcareRadiology Study observation (narrative)NOMS HealthcareUS OB BPP W NON-STRESSOrdered By: Radiologist Radiology on 30-48-3725UFMT [employer] Work Phone: US OB BPP W NON-STRESSon [phone], [place] [address] Ultrasound Report Signed Patient: PRINCESS CANTU MR#: [id number] : 1995 Acct:[id number] Age/Sex: 27 / F ADM Date: 07/17/23 Loc: US Attending Dr: Willis Chen D.O. Ordering Physician: Willis Chen D.O. Date of Service: 07/17/23 Procedure(s): US OB BPP w non-stress Accession Number(s): [id number] cc: Willis Chen D.O.; Physician,Non-Staff M.DLima The [place] [address] Patient Name: PRINCESS CANTU MRN: [id number] date: 1995 Sex: F Assigned Patient Location: US Current Patient Location: Accession/Order Number: [id number] Exam Date: 07/17/2023 11:20 Report Date: 07/20/2023 [...] M.D. Signed By: 07/20/23713 DD/ 0 TD/TT: Equipment Coordinator:TBHRadiology, Radiologist, - 09/22/2023 [place] [address] Ultrasound Report Signed Patient: PRINCESS CANTU MR#: [id number] : 1995 Acct:[id number] Age/Sex: 27 / F ADM Date: 07/17/23 Loc: US Attending Dr: Willis Chen D.O. Ordering Physician: Willis Chen D.O. Date of Service: 07/17/23 Procedure(s): US OB BPP w non-stress Accession Number(s): [id number] cc: Willis Chen D.O.; Physician,Non-Staff Jake The [place] [phone] Patient Name: PRINCESS CANTU MRN: [id number] date: 1995 Sex: F Assigned Patient Location: US Current Patient Location: Accession/Order Number: [id number] Exam Date: 07/17/2023 11:20 Report Date: 07/20/2023 [...] M.D. Signed By: 07/20/23713 DD/ 0 TD/TT: Equipment Coordinator: NOMS HealthcareRadiology Study observation (narrative)NOMS HealthcareUS OB BPP W NON-STRESSOrdered By: Radiologist Radiology on 88-18-5061[facility] Work Phone: US OB BPP W NON-STRESSon [phone], [place] [address] Ultrasound Report Signed Patient: PRINCESS CANTU MR#: [id number] : 1995 Acct:[id number] Age/Sex: 27 / F ADM Date: 07/10/23 Loc: FBCO Attending Dr: Willis Chen D.O. Ordering Physician: Willis Chen D.O. Date of Service: 07/10/23 Procedure(s): US OB BPP w non-stress Accession Number(s): [id number] cc: Willis Chen D.O.; Physician,Non-Staff M.No The [place] [phone] Patient Name: PRINCESS CANTU MRN: [facility]:[id number] date: 1995 Sex: F Assigned Patient Location: [facility] Current Patient Location: Accession/Order Number: [id number] Exam Date: 07/10/2023 14:31 Report Date: 07/11/2023 [...] Draper M.D. Signed By: 07/11/230 DD/ TD/TT: Equipment Coordinator:TBHRadiology, Radiologist, MD - 07/11/2023 [place] [address] Ultrasound Report Signed Patient: PRINCESS CANTU MR#: [id number] : 1995 Acct:[id number] Age/Sex: 27 / F ADM Date: 07/10/23 Loc: FBCO Attending Dr: Willis Chen D.O. Ordering Physician: Willis Chen D.O. Date of Service: 07/10/23 Procedure(s): US OB BPP w non-stress Accession Number(s): [id number] cc: Willis Chen D.O.; Physician,Non-Staff Jake The [place] [phone] Patient Name: PRINCESS CANTU MRN: [facility]:[id number] date: 1995 Sex: F Assigned Patient Location: [facility] Current Patient Location: Accession/Order Number: [id number] Exam Date: 07/10/2023 14:31 Report Date: 07/11/2023 [...] M.D. Signed By: 07/11/23 0020 DD/ TD/TT: Equipment Coordinator: JOSY HealthcareRadiology Study observation (narrative)NOMS HealthcareUS OB BPP W NON-STRESSOrdered By: Radiologist Radiology on 17-10-9958[facility] Work Phone: US OB GROWTHon [phone], [place] [address] Ultrasound Report Signed Patient: PRINCESS CANTU MR#: [id number] : 1995 Acct:[id number] Age/Sex: 27 / F ADM Date: 07/10/23 Loc: FBCO Attending Dr: Willis Chen D.O. Ordering Physician: Willis Chen D.O. Date of Service: 07/10/23 Procedure(s): US OB growth Accession Number(s): [id number] cc: Willis Chen D.O.; Physician,Non-Staff Jake The [address] [address] Patient Name: PRINCESS CANTU MRN: [id number] date: 1995 Sex: F Assigned Patient Location: [facility] Current Patient Location: [facility] Accession/Order Number: [id number] Exam Date: 07/10/2023 14:31 Report Date: 07/11/2023 [...] Draper M.D. Signed By: 07/11/2349 DD/ TD/TT: Equipment Coordinator:LIZETHHRadiology, Radiologist, MD - 09/22/2023 [place] [address] Ultrasound Report Signed Patient: PRINCESS CANTU MR#: [id number] : 1995 Acct:[id number] Age/Sex: 27 / F ADM Date: 07/10/23 Loc: FBCO Attending Dr: Willis Chen D.O. Ordering Physician: Willis Chen D.O. Date of Service: 07/10/23 Procedure(s): US OB growth Accession Number(s): [id number] cc: Willis Chen D.O.; Physician,Non-Staff Jake The [place] [phone] Patient Name: PRINCESS CANTU MRN: [id number] date: 1995 Sex: F Assigned Patient Location: [facility] Current Patient Location: [facility] Accession/Order Number: [id number] Exam Date: 07/10/2023 14:31 Report Date: 07/11/2023 [...] Draper M.D. Signed By: 07/11/2349 DD/ TD/TT: Equipment Coordinator: JOSY HealthcareRadiology Study observation (narrative)[facility] HospitalUS OB GROWTHOrdered By: Radiologist Radiology on 97-17-4835[facility] Work Phone: DHEA SERUMon 02-95-4735Osxlwuubbftlrkuvuvxwyh (DHEA) 656 ng/rTIbrdsv22-066BvkSelect Medical Specialty Hospital - [facility], IncComment on above:Performed By: #### DHEA. #### [facility] [address] [place] [address] Dr. Vish Mai-MULLERIAN HORMONEon 90-82-4852Lhnc-Mullerian Hormone (AMH) 4.47 ng/mLNormalSelect Medical Specialty Hospital - [facility], IncComment on above:Result Comment: For assays employing antibodies, the possibility exists for interference by heterophile antibodies in the samples.1 1.Favio Correia. Interferences in Immunoassays - still a threat. Clin. Chem. 2000; 46: 6649-5656. This test was developed and its performance characteristics determined by [employer] It has not been cleared or approved by the Food and Drug Administration. Reference Range: Females 26 - 30y: 1.03 - 11.10 Median 4.20 AMH concentrations of >= 1.06 ng/mL is correlated with a better response to ovarian stimulation, produced more retrievable oocytes and higher odds of live according to Ryaner et al. Fertility and Sterility. 2010: 94:7815-9035. The current AMH test method correlates with [...] AMH-secreting ovarian tumor.Performed By: #### LBCLH #### [facility] [address] [place] [address] Dr. Vish Olivas-SULFATEon 84-95-8329HWAR-Ngnvyjq606.0 ug/dLCritically high 84.8-378.0[facility], IncComment on above:Performed By: #### LBCLH #### [facility] [address] [place] [address] Dr. Vish CardonaTRADIOLon 10-95-0789Waecsvyae31.3 pg/mLNormalSelect Medical Specialty Hospital - [facility], IncComment on above:Result Comment: Adult Female: Follicular phase 12.5 - 166.0 Ovulation phase 85.8 - 498.0 Luteal phase 43.8 - 211.0 Postmenopausal <6.0 - 54.7 1st trimester 215.0 - >4300.0 Ele ECLIA methodologyPerformed By: #### ESTRADI #### [facility] [address] [place] [address] Dr. Vish Monroy 71-32-3882XID5.1 mIU/mLNormalSelect Medical Specialty Hospital - [facility], IncComment on above:Result Comment: Adult Female: Follicular phase 3.5 - 12.5 Ovulation phase 4.7 - 21.5 Luteal phase 1.7 - 7.7 Postmenopausal 25.8 - 134.8Performed By: #### LBCFSH #### [facility] [address] [place] [address] Dr. Vish BrownLUTEINIZING HORMONE (LH)on 11-81-2084FH4.5 mIU/mLNormalSelect Medical Specialty Hospital - [facility], IncComment on above:Result Comment: Adult Female: Follicular phase 2.4 - 12.6 Ovulation phase 14.0 - 95.6 Luteal phase 1.0 - 11.4 Postmenopausal 7.7 - 58.5Performed By: #### LBCLH #### [facility] [address] [place] [address] Dr. Vish BrownPROGESTERONEon 97-20-2056Csusrbyfmdxf9.8 ng/mLNormalSelect Medical Specialty Hospital - [facility], IncComment on above:Result Comment: Follicular phase 0.1 - 0.9 Luteal phase 1.8 - 23.9 Ovulation phase 0.1 - 12.0 First trimester 11.0 - 44.3 Second trimester 25.4 - 83.3 Third trimester 58.7 - 214.0 Postmenopausal 0.0 - 0.1Performed By: #### PROGES #### [facility] [address] [place] [address] Dr. Vish Carrillo AUTO DIFFon 34-26-6865PCDS #0.0 103/ulNormal0.0-0.1[facility], IncComment on above:Performed By: #### LBCLH #### [facility] [address] [place] [address] Dr. Vish BrownBasophils/100 WBC (Bld)0.5 %Normal0.2-2.0[facility] Comment on above:Performed By: #### LBCLH #### [facility] [address] [place] [address] Dr. Vish Layton #0.3 103/ulNormal0.0-0.7The [facility] Health CenterComment on above: Performed By: #### LBCLH #### [facility] [address] [place] [address] Dr. Vish Haqosinophils/100 WBC (Bld)4.0 %Normal0.9-7.0[facility] Comment on above:Performed By: #### LBCLH #### [facility] [address] [place] [address] Dr. Yilan ChangErythrocyte distribution width (RBC) [Ratio]12.0 %Xbciaa28.0-15.0 The [facility] County Health CenterComment on above:Performed By: #### LBCLH #### [facility] [address] [place] [address] Dr. Vish BrownHematocrit (Bld) [Volume fraction]39.1 %Xpuhkl29.0-48.0The [facility] Health CenterComment on above:Performed By: #### LBCLH #### [facility] [address] [place] [address] Dr. Vish BrownHemoglobin (Bld) [Mass/Vol]13.0 g/hFRrzvaw66.0-16.0The [facility] Health CenterComment on above:Performed By: #### LBCLH #### [facility] [address] [place] [address] Dr. Vish Lawson #0.02 10e3/ulNormal0.00-0.03The [facility] CenterComschoolcraft memorial hospital on above:Performed By: #### LBCLH #### [facility] [address] [place] [address] Dr. Vish Lawson %0.3 %Normal0.0-0.5The [facility] CenterComschoolcraft memorial hospital on above: Performed By: #### LBCLH #### [facility] [address] [place] [address] Dr. Vish AvilezH #2.5 103/ulNormal1.2-3.8The [facility] CenterComschoolcraft memorial hospital on above:Performed By: #### LBCLH #### [facility] [address] [place] [address] Dr. Vish Jaffemphocytes/100 WBC (Bld)32.4 %Vsjegf51.5-60.0The [facility] CenterComment on above:Performed By: #### LBCLH #### [facility] [address] [place] [address] Dr. Vish BrownMANUAL DIFF REQNONormalThe [facility] County Health CenterComment on above: Performed By: #### LBCLH #### [facility] [address] [place] [address] Dr. Vish Smith (RBC) [Entitic mass]29.9 vlBafpcv33.7-34.0The [facility] CenterComment on above:Performed By: #### LBCLH #### [facility] [address] [place] [address] Dr. Vish Smith (RBC) [Mass/Vol]33.2 g/vLGqgibk73.9-35.2The Knapp HospitalComment on above:Performed By: #### LBCLH #### [facility] [address] [place] [address] Dr. Vish Smith (RBC) [Entitic vol]89.9 wTEzgtoc93.0-99.0The [facility] CenterComment on above:Performed By: #### LBCLH #### [facility] [address] [place] [address] Dr. Vish Power #0.6 103/ulNormal0.3-0.8The [facility] Health CenterComment on above:Performed By: #### LBCL #### [facility] [address] [place] [address] Dr. Vish Vigilocytes/100 WBC (Bld)7.4 %Normal1.7-12.0The [facility] Comment on above:Performed By: #### LBCL #### [facility] [address] [place] [address] Dr. Vish Pulliam #4.3 103/ulNormal1.4-6.5The [facility] CenterComment on above:Performed By: #### LBCLH #### [facility] [address] [place] [address] Dr. Vish Lamarutrophils/100 WBC (Bld)55.4 %Itulsu47.0-75.0The [facility] CenterComment on above:Performed By: #### LBCLH #### [facility] [address] [place] [address] Dr. Vish Madisonlet mean volume (Bld) [Entitic vol]9.0 fLCritically low 9.5-13.5The [facility] CenterComment on above:Performed By: #### LBCLH #### [facility] [address] [place] [address] Dr. Vish BrownPLT277 103/lbGijkhu456-700Nbb [facility] CenterComment on above: Performed By: #### LBCLH #### [facility] [address] [place] [address] Dr. Vish BrownRBC4.35 106/ulNormal4.20-5.40The [facility] Health CenterComment on above:Performed By: #### LBCLH #### [facility] [address] [place] [address] Dr. Vish BrownWBC7.7 103/ulNormal4.0-11.0The [facility] CenterComment on above: Performed By: #### LBCLH #### [facility] [address] [place] [address] Dr. Vish BrownFRIRENA T4on 34-32-4476Pywq T4 [Mass/Vol]1.08 ng/dLNormal0.76-1.46 The [facility] CenterComment on above:Performed By: #### FT4 #### [facility] [address] [place] [address] Dr. Vish BronwGLYCOHEMOGLOBIN A1Con 33-36-3482VAI RECOMMENDATIONSEE BELOWNormal The [facility] CenterComschoolcraft memorial hospital on above:Result Comment: ADA RECOMMENDED LIMIT 4.0 - 6.0 ADA THERAPEUTIC TARGET < 7.0 ACTION SUGGESTED > 7.0Performed By: #### A1C #### [facility] [address] [place] [address] Dr. Vish BrownGlucose [Mass/Vol]94 mg/dLNormalThe [facility] CenterComschoolcraft memorial hospital on above:Performed By: #### A1C #### [facility] [address] [place] [address] Dr. Vish BrownHbA1c (Bld) [Mass fraction]4.9 %Normal4.5-6.2The [facility] CenterComment on above:Performed By: #### A1C #### [facility] [address] [place] [address] Dr. Vish BrownPREBhargav QUANT HCGon 00-10-6865TWX QUANT<1NormalThe [facility] Comment on above:Performed By: #### PREGQNT, TSH #### [facility] [address] [place] [address] Dr. Vish WesleyG RANGESMercy Health St. Elizabeth Youngstown HospitalComment on above: Result Comment: 5-50 0.2-1 WEEK 50-500 1-2 WEEKS 100-5,000 2-3 WEEKS 500-10,000 3-4 WEEKS 1,000-50,000 4-5 WEEKS 10,000-100,000 5-6 WEEKS 15,000-200,000 6-8 WEEKS 10,000-100,000 2-3 MONTHSPerformed By: #### PREGQNT, TSH #### [facility] [address] [place] [address] Dr. Vish Boo 25-71-7788XSU4.030 uIU/mLNormal0.358-3.740[facility], IncComment on above:Performed By: #### PREGQNT, TSH #### [facility] [address] [place] [address] Dr. Vish Massey 19-49 Yearson 72-60-7600XM 19-49 YearsDiagnoses/Problems Health Maintenance/Risks Encounter for preventive [...] Services - Lab To Draw (Blood Test); Due:51Pfz0111;Ordered; For:Benign essential hypertension; Ordered By:Koffi Uriarte; Provider [...] alcohol (more content not included)...NormalUH TouchworksTobacco Screening.on 72-21-6580Lbnbl depression screening torattgjukLrCC-BBQL-[place] Work Phone: Fall risk assessmenta) No falls within the last year YT-FKQY-Xupr3Nod Work Phone: Tobacco use status CPHSb) LbSB-TSSY-Uvew3Nod Work Phone: b-HCG SerPl-aCncon 62-38-8990SMD.beta subunit Qn m[IU]/mLNormal<5.0[facility] on above:Order Comment: Specimen Type: BLOOD SPECIMENOrdering Facility: [facility] Address:[address] [place], [place] [address]Result Comment: Negative Performed By: #### GCCT #### [place] [address] OPMSTDTDS VAGINOSIS AMPLIFICATIONon 56-37-5572Fbebgqjdjacop crispatus+gasseri+jensenii + Gardnerella vaginalis + Atopobium vaginae rRNA HUMERA+probeQl (Vag fld)NegativeNormalNegative for bacterial vaginosisCUniversity Hospitals [facility] on above:Order Comment: Specimen Type: SWAB [facility] Address: [address] [place], [place] [address]Performed By: #### CVTV, BVAMP #### [facility] CLIA [id number] [address] [place], [place] [address]C. trachomatis+N. gonorrhoeae DNA HUMERA+probe Ql (Unsp spec)on 04-16-2022. trachomatis DNA HUMERA+probe Ql (Unsp spec)NegativeNormalNegative for Chlamydia trachomatis by amplificatonCUniversity Hospitals TriPoint Medical Center on above:Order Comment: Specimen Type: SWAB [facility] Address: [address] [place], [place] [address]Performed By: #### CVTV, BVAMP #### [facility] CLIA [id number] [address] [place] [address] OF RWANDAN. gonorrhoeae DNA HUMERA+probe Ql (Unsp spec)NegativeNormalNegative for Neisseria gonorrhoeae by amplification [facility] on above:Order Comment: Specimen Type: SWAB [facility]ing Facility[facility] Address: [address] [place] [address]Performed By: #### CVTV, BVAMP #### [facility] CLIA [id number] [address] [place] [address] [place] OF AMERICACANDIDA / TRICHOMONAS AMPLIFICATIONon 05-60-7829ILITTUA / TRICHOMONAS AMPLIFICATIONCANDIDA SPECIES GROUP RNA: Negative for Mitch species MITCH GLABRATA RNA: Negative for Mitch glabrata TRICH VAG AMPLIFICATION RNA: Negative for Trichomonas vaginalis by amplificationEast Liverpool City Hospital on above:Performed By: #### CVTV, BVAMP #### [facility] CLIA [id number] [address] [place] [address] [place] OF AMERICACNCOon 93-92-4789YVGCCcbtms Text Letter TextNoSt. 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 IBrendan, have reviewed this information as documented for accuracy and performed all elements of history taking, and edited the record as necessary. ROS: SEE HPI PE: GENERAL: well-appearing, in no acute distress LUNGS: Normal inspiratory effort BUSINESS SOLUTIONS CONSULTANT: Normal external genitalia, no vaginal bleeding, small [...] Order(s):MITCH / TRICHOMONAS AMPLIFICATION [SQCVTV] Order #: [id number]. #:[id number] BACTERIAL VAGINOSIS AMPLIFICATION [SQBVAMP] Order #: [id number]. #:[id number] GC/CHLAMYDIA DNA DET [SQGCCAMP] Order #: [id number]. #:[id number] SYPHILIS TOTAL W/REFLEX [SQSYPHTX] Order #: [id number] FUTURE HIV 1 2 COMBO(AG/AB),WITH REFLEX TO DIFFERENTIATION [SQHIV12] Order #: [id number] FUTURE HEP C AB IA W/CONF SCRN [ICYJZM3M] Order #: [id number] FUTURE HEP B SURF AG SCRN [SQHBSAG] Order #: [id number] FUTURE Prescriptions as of 04/16/2022 - lamoTRIgine [...] Encounter Status:Closed by BRENDAN BLANKENSHIP on 04/16/22NoSt. Elizabeth HospitalHBV surface Ab IA Ql (S)on 59-53-3185RCC surface Ag Ql (S)Negative NormalNegativePeoples Hospital on above:Order Comment: Specimen Type: BLOOD SPECIMENOrdering Facility: [facility] Address:[address] [place], [place] [address]Performed By: #### GCCT #### [place] [phone] Ab Ser Qlon 53-03-9235OMZ Ab Ql (S)NegativeNormalNegative [facility] on above:Order Comment: Specimen Type: BLOOD SPECIMEN [facility] Address: [address] [place], [place] [address]Result Comment: The result suggests no evidence of active infection with Hepatitis C virus. Should recent infection be suspected, repeat testing may be considered 4-6 weeks after this draw.Performed By: #### 94511-3 #### [facility] CLIA [id number] [address] [place] [address] [place] OF AMERICAHIV 1+2 Ab IA Qlon 18-50-5485EXU 1 and 2 Ab IA.rapid NomEast Liverpool City Hospital on above:Order Comment: Specimen Type: BLOOD SPECIMENOrdering Facility: [facility] Address:[address] [place], [place] [address]Result Comment: Test not indicated.Performed By: #### GCCT #### [place] [address] DZQ 1+2 Ab+HIV1 p24 Ag IA QlNon-ReactiveNormalNonreactivePeoples Hospital on above:Order Comment: Specimen Type: BLOOD SPECIMENOrdering Facility: [facility] Address:[address] [place], [place] [address]Performed By: #### GCCT #### [place] [address] PCXROKRgviwbHslvhxpld Clinic ClevelandComment on above:Order Comment: Specimen Type: BLOOD SPECIMENOrdering Facility: [facility] Address:[address] [place], [place] [address]Result Comment: No evidence of HIV-1 or HIV-2 infection. Should recent infection be suspected, repeat testing may be considered 2-3 weeks after this draw. [place] Rev. Code 3701.243(E): This information has been [...] results or diagnoses.Performed By: #### GCCT #### [place] [address] Icsfyy and Treponema pallidum IgG and IgM [Interp]on 04-16-2022 SYPHILIS INTERPRETATIONCannot exclude recent Treponemal infection if specimen collected within 7-10 days after appearance of suspect lesions or 2-3 weeks after an exposure. Clinical correlation is required.NormalPeoples Hospital on above:Order Comment: Specimen Type: BLOOD SPECIMENOrdering Facility: [facility] Address:[address] [place], [place] [address]Performed By: #### GCCT #### [place] [phone]. pallidum IgG+IgM IA Ql (S)Non-ReactiveNormalNonreactivePeoples Hospital on above:Order Comment: Specimen Type: BLOOD SPECIMENOrdering Facility: [facility] Address:[address] [place], [place] [address]Performed By: #### GCCT #### [place] [address] RCVELSMOUPofftoq By: SYSTEM SYSTEM on 49-87-1164TNA.beta subunit Qn1 m[IU]/mLNormal1 - 3 mIU/mLFTMC RemisolCNPNon 82-58-3346BZBJSppljtpes ([facility]) PRINCESS CANTU ([id number]) 1995 F Date Time Provider Department 03/24/22 [...] Fully Assessed Reason for Visit: Bleeding With [96401] Primary Visit Diagnosis:Bleeding in early [O20.9] Order(s):HCG QUANTITATIVE [SQHCGQT] Order #: [id number] FUTURE Prescriptions as of 03/24/2022 - metroNIDAZOLE [...] 07/04/2021 Encounter Status:Closed by BRENDAN SOUZA on 03/24/22[facility] 06-78-3012NNDHFnzwianhp (OBGYCC) PRINCESS CANTU ([id number]) 1995 F Date Time Provider Department 03/19/22 [place] [facility] During your visit today, we recorded [...] 07/04/2021 Encounter Status:Closed by MARY ONOFRE [facility]on 91-81-3518Dduirk-up visitProvider Impressions 1. Seizure: Stable. Last episode [...] or bowel/bladder incontinence. She was taken to [facility] in [place]. She had lab work and a CT [...] DAILY. Vitals Vital Signs Recorded: 24Dec2021 11:32AM Lxvrttsmoql79.1 F Heart Rate54 Xrdgvfea804 Bgxiasylu32 Height5 ft 9 in Wdvkgb523 lb 1.6 oz BMI Uxpzrjgwva89.03 kg/m2 BSA Calculated2.11 Tobacco Useb) No Fall Screeninga) No falls within the last year O2 Zcpmjyklrg123, RA Physical Exam Constitutional: General appearance: no [...] 2021 11:37AM EST (Author) Normal TouchworksTobacco Screening.on 39-91-7462Vvab risk assessmenta) No falls within the last jskpYU-Tvodyjbvw-Vdnfodvt SJW DO Work Phone: Tobacco use status CPHSb) CqFM-Cbafbicni-Dwozfjji SJW DO Work Phone: Office Visit (Primary [...] Known Drug Allergies Vitals Vital Signs Recorded: 43Opq3888 01:08PM Temperature: 97 F Heart Rate: 70 [...] 17 2021 1:34PM EST (Author)NormalUH TouchworksTobacco Screening.on 49-11-8033Afguy depression screening dlfsevytruNeVX-TYHA-[place] Work Phone: Fall risk assessmenta) No falls within the last year PN-ATLY-Ltdw3Nod Work Phone: Tobacco use status CPHSb) BgCC-XGDU-Comr3Nod Work Phone: bact Vag Amplificationon 02-71-9936Rizw Vag AmplificationPositiveCritically abnormalNegative for bacterial vaginosis Providence HospitalComment on above:Performed By: #### GCCT #### [facility] [address] [place], [place] [address] TTLKfh 22-50-0188XJTEPpknzm Visit ([facility] PRINCESS CANTU ([id number]) 1995 F Date Time Provider Department 09/09/21 [...] Social History Narrative Single No 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 Portions of this record were documented by the Special Education Professor. I, Brendan Blankenship, have reviewed this information as documented for accuracy and performed all elements of history taking, and edited the record as necessary. ROS: SEE HPI PE: GENERAL: well-appearing, in no acute distress LUNGS: Normal inspiratory effort BUSINESS SOLUTIONS CONSULTANT: Small amount yellow mucus discharge, cervix NL. [...] Order(s):MITCH / TRICHOMONAS AMPLIFICATION [SQCVTV] Order #: [id number] BACTERIAL VAGINOSIS AMPLIFICATION [SQBVAMP] Order #: [id number] GC/CHLAMYDIA DNA DET [SQGCCAMP] Order #: [id number] metroNIDAZOLE (FLAGYL) 500 mg tabletTake 1 tablet [...] Letter Text Encounter Status:Closed (more content not included)...NormalProvidence HospitalCandida Trich Amplon 83-32-4408Miyguzf glabrata RNANegativeNormal NegativeProvidence HospitalComment on above:Performed By: #### GCCT #### [place] [address] Zpazwvf sp group RNANegativeNormalNegativeProvidence Hospital Comment on above:Performed By: #### GCCT #### [place] [address] Gcygswsxlcw RNANegativeNormalCCleveland Clinic Avon HospitalComment on above:Performed By: #### GCCT #### [place] [phone]/Chlamydia Amplifon 77-28-0439Duzyziava AmplifNegativeNormal Providence HospitalComment on above:Performed By: #### GCCT #### [place] [address] BW AmplificationNegativeNormalCCleveland Clinic Avon HospitalComment on above:Performed By: #### GCCT #### [place] [phone]/Chlam Amp SourceCervixNormalClevelSampson Regional Medical CenterComment on above:Performed By: #### GCCT #### [facility] [place] [address] [phone] Vag Amplificationon 34-15-8662Eaos Vag AmplificationNegative NormalNegative for bacterial vaginosisCCleveland Clinic Avon HospitalComment on above:Performed By: #### CVTV, BVAMP #### [facility] CLIA [id number] [address] [place] [address] OF [facility] CENTERCNOVon 30-09-2355BMRADwzopz Visit (OBGYCC) PRINCESS CANTU ([id number]) 1995 F [facility] Date Time Provider Department 07/04/21 4:00 PM [place] [facility] During your visit today, we recorded the following information about you: Pulse Blood pressure Weight Height 74/minute 131/86 95.7 kg 1.727 m Last Period 06/07/21 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 APRN.TRAINING MGR 07/04/2021 4:39 PM Signed Princess is a [...] Ectopic0 Multiple0 Live Births0 Comment: 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 Some of these tests may be ordered or performed by your primary care doctor. Pap test screening The pap test loo (more content not included)...NormalProvidence Hospital Mitch Trich Amplon 89-62-0049Nsrsaxs glabrata RNANegativeNormalNegative Providence HospitalComment on above:Performed By: #### CVTV, BVAMP #### [facility] CLIA [id number] [address] [place] [address] [place] OF AMERICACandida sp group RNANegative NormalNegativeProvidence HospitalComment on above:Performed By: #### CVTV, BVAMP #### [facility] CLIA [id number] [address] [place] [address] [place] AMERICATrichomonas RNANegative NormalProvidence HospitalComment on above:Performed By: #### CVTV, BVAMP #### [facility] CLIA [id number] [address] [place] [address] STATES OF AMERICAGC/Chlamydia Amplifon 70-87-9886Lkeikbemb AmplifNegativeNormalCCleveland Clinic Avon HospitalComment on above:Performed By: #### GCCT #### [place] [phone] AmplificationNegativeNormalCCleveland Clinic Avon HospitalComment on above:Performed By: #### GCCT #### [place] [phone]/Chlam Amp SourceCervixNormalCCleveland Clinic Avon HospitalComment on above:Performed By: #### GCCT #### [place] [phone] Screening.on 96-92-8166Ojqp risk assessmenta) No falls within the last qnjqJQ-Lhnwcfris-Bhfxgcbc [employer] Work Phone: Tobacco use status CPHSb) LgYE-Lfhpezmfw-Luksktvg [employer] Work Phone: GC + Chlamydia By Amplified Detectionon 05-20-2021. trachomatis rRNA HUMERA+probe Ql (Unsp spec)SyruyyazZtgwndpzMV-YRSW-[place] Work Phone: comment on above:The APTIMA Combo 2 assay is FDA- approved for Chlamydia trachomatis and Neisseria gonorrhoeae testing on female endocervical and vaginal swabs, ThinPrep liquid pap samples, male urine samples and urethral swabs. Performance characteristics for Chlamydia trachomatis and Neisseria gonorrhoeae testing on specific rcs-HRR-skechite sample types (female urine samples) have been validated by [facility]. This laboratory is certified by CLIA to perform high complexity evie ting. Samples from all other sites are not validated for this method.N. gonorrhoeae rRNA HUMERA+probe Ql (Unsp spec)DwefubhoIzfckexjMA-FGXC-Xmdm [place] Work Phone: comment on above:SOURCE: Urine The APTIMA Combo 2 assay is FDA-approved for Chlamydia trachomatis and Neisseria gonorrhoeae testing on female endocervical and vaginal swabs, ThinPrep liquid pap samples, male urine samples and urethral swabs. Performance characteristics for Chlamydia trachomatis and Neisseria gonorrhoeae testing on specific csn-ATF-rgumztzb sample types (female urine samples) have been validated by [facility]. This laboratory is certified by CLIA to perform high complexity testing. Samples from all other sites are not validated for this method.TSHon 73-83-8229ACI Qn2.30 m[IU]/LNormal0.44 - 3.98St[facility] Psychiatry CenterComment on above:Result Comment: TSH testing is performed using different testing methodology at [facility] than at other [facility]. Direct result comparisons should only be made within the same method.Performed By: #### TSH2 #### [address] [place], [place] [address]KLE - Thyroid Stimulating Hormone, Serumon 78-18-8910CFT Qn 2.30 m[IU]/LSee UktpmDR-NHKZ-[place] Work Phone: comment on above:Reference Range: 0.44 - 3.98 TSH testing is performed using different testing methodology at [facility] than at other [facility]. Direct result comparisons should only be made within the same method.Tobacco Screening.on 96-75-3662Bytx risk assessment a) No falls within the last lgzdMG-UVTM-[place]nbo [place] Work Phone: Tobacco use status CPHSb) KwZW-XGWS-[place] Work Phone: cBCon 89-90-2222Nhthawlzkoi distribution width (RBC) [Ratio]13.2 %Hfarnf01.5 - 14.5St[facility] Geriatric Psychiatry CenterComment on above:Performed By: #### CBC #### [address] [place], [place] [address]Ayqdfiwmgq (Bld) [Volume fraction]39.5 %Bkxayk14.0 - 46.0St[facility] Psychiatry CenterComment on above:Performed By: #### CBC #### [address] [address]Xfjedllanh (Bld) [Mass/Vol]13.0 g/jYQzrvar61.0 - 16.0[facility] Psychiatry CenterComment on above:Performed By: #### CBC #### [address] [address]ITUH (RBC) [Mass/Vol]32.9 g/bROdizkh18.0 - 36.0St[facility] Psychiatry CenterComment on above:Performed By: #### CBC #### [address] [address]YYF (RBC) [Entitic vol]91 bYWuzbhu49 - 100St[facility] Psychiatry CenterComment on above:Performed By: #### CBC #### [address] [address]TFJYVEHSY RBC0.0 /100 WBCNormal0.0 - 0.0St[facility] Psychiatry CenterComment on above:Performed By: #### CBC #### [address] [address]Adbjmierv (Bld) [#/Vol]235 10*3/xWKqpavr764 - 450St. [facility] Psychiatry CenterComment on above:Performed By: #### CBC #### [address] [address]CSV2.33 x10E12/LNormal4.00 - 5.20[facility] Comment on above:Performed By: #### CBC #### [address] [address]WKV (Bld) [#/Vol]5.8 10*3/uLNormal4.4 - 11.3St[facility] Psychiatry CenterComment on above:Performed By: #### CBC #### [address] [address]MSWSENTDEUCSG PANELon 20-37-9128Qredwcc [Mass/Vol]4.7 g/dL Normal3.4 - 5.0St[facility] Psychiatry CenterComment on above:Performed By: #### CMP #### [address] [place], [place] [address]GJD [Catalytic activity/Vol]53 U/SLrnweo40 - 110St. [facility] Psychiatry CenterComment on above:Performed By: #### CMP #### [address] [place], [place] [address]FSF [Catalytic activity/Vol]41 U/LNormal7 - 45St. [facility] Psychiatry CenterComment on above:Result Comment: Patients treated with Sulfasalazine may generate falsely decreased results for ALT.Performed By: #### CMP #### [address] [address]Micdt gap [Moles/Vol]10 mmol/AVdtjqy90 - 20St[facility] Psychiatry CenterComment on above:Performed By: #### CMP #### [address] [address]ACX [Catalytic activity/Vol]27 U/LNormal9 - 39St. [facility] Psychiatry CenterComment on above:Performed By: #### CMP #### [address] [address]Npcmveqod [Mass/Vol]0.6 mg/dLNormal0.0 - 1.2St[facility] Psychiatry CenterComment on above:Performed By: #### CMP #### [address] [address]Zvwjxkk [Mass/Vol]9.5 mg/dLNormal8.6 - 10.3St[facility] Psychiatry CenterComment on above:Performed By: #### CMP #### [address] [address]Jqqydspt [Moles/Vol]105 mmol/NQbljno83 - 107St. [facility] Psychiatry CenterComment on above:Performed By: #### CMP #### [address] [address]Lsamkeaalo [Mass/Vol]0.93 mg/dLNormal0.50 - 1.05St. [facility] Psychiatry CenterComment on above:Performed By: #### CMP #### [address] [place], [place] [address]KHK-LSCPCDJ AM.>60Normal>60St. [facility] Psychiatry CenterComment on above:Result Comment: CALCULATIONS OF ESTIMATED GFR ARE PERFORMED USING THE MDRD STUDY EQUATION FOR THE IDMS-TRACEABLE CREATININE METHODS. CLIN CHEM 2007;53:766-72Performed By: #### CMP #### [address] [place], [place] [address]XAY-KHA AM.>60Normal>60St. [facility] Psychiatry CenterComment on above:Performed By: #### CMP #### [address] [place], [place] [address]Gjsdvhu [Mass/Vol]94 mg/yVHqhkug64 - 99[facility] Comment on above:Performed By: #### CMP #### [address] [place], [place] [address]EWW9 (Bld) [Moles/Vol]28 mmol/QUjdjbw80 - 32St. [facility] Psychiatry CenterComment on above:Performed By: #### CMP #### [address] [place], [place] [address]Tfqwikcoe [Moles/Vol]4.4 mmol/LNormal3.5 - 5.3St[facility] Psychiatry CenterComment on above:Performed By: #### CMP #### [address] [place], [place] [address]Poirnjr [Mass/Vol]7.3 g/dLNormal6.4 - 8.2St[facility] Psychiatry CenterComment on above:Performed By: #### CMP #### [address] [place], [place] [address]Srtywb [Moles/Vol]139 mmol/MWlqgqn555 - 145St. [facility] Psychiatry CenterComment on above:Performed By: #### CMP #### [address] [place], [place] [address]Wcwu nitrogen [Mass/Vol]13 mg/dLNormal6 - 23St. [facility] Psychiatry CenterComment on above:Performed By: #### CMP #### [place] [address] [facility]. [place], [place] [address]Awvwhjvfufdh 50-82-5029Jruvxsrydm (Bld) [Volume fraction]39.5 %See RtixsXR-Vssunpzos-Nmgvxnji SJW DO Work Phone: Comment on above:Reference Range: 36.0 - 46.0 Hemoglobin (Bld) [Mass/Vol]13.0 g/dLSee RdtezJH-Uspdikgbp-Ywfqbqzf SJW DO Work Phone: Comment on above:Reference Range: 12.0 - 16.0MCV (RBC) [Entitic vol]91 fL80 - 791NE-Urdwgwrcz-Aihciajc SJW DO Work Phone: Platelets (Bld) [#/Vol]235 {x10E9/L}150 - 450 SN-Omxrlumgx-LnitmkcqValley Springs Behavior[facility] DO Work Phone: RBC (Bld) [#/Vol]4.33 {x10E12/L}See Below JB-Vcojhpfjt-VrslcpgrValley Springs Behavioral Health Hospital DO Work Phone: Comment on above:Reference Range: 4.00 - 5.20WBC (Bld) [#/Vol]5.8 {x10E9/L}4.4 - 11.4WQ-Hlkvpikri-Kjsfkvkh SJW DO Work Phone: WBC (Bld) [#/Vol]0.0 {/100_WBC}0.0 - 0.0 UX-Vuiaekevq-GtwreqjgValley Springs Behavioral Health Hospital DO Work Phone: LAMOTRIGINE- LAMICTALon 45-19-3392FJTMPFWTDEW- LAMICTAL6.4 ug/mLNormal2.5 - 15.0[facility] – Oklahoma CityComment on above: Performed By: #### LAMOT #### [facility] [address] [place], [place] [address]Cmoubplgcod Level, Serumon 83-63-2834Cffedjayvbq [Mass/Vol] 6.4 ug/mL2.5 - 15.5LM-Hvmzedzbx-Xwwcebop SJW DO Work Phone: [phone] Panelon 70-50-8731JZV [Catalytic activity/Vol]53 U/L33 - 148QP-Gwfxxqmen-Eumxqdmx SJW DO Work Phone: [phone] gap [Moles/Vol]10 mmol/L10 - 20 UP-Mknfqgnoy-Zcqpiafm SJW DO Work Phone: [phone] [Mass/Vol]0.6 mg/dL0.0 - 1.2 LK-Bmxdyfcte-Wecaeyqw SJW DO Work Phone: [phone] [Mass/Vol]9.5 mg/dL8.6 - 10.3 GR-Wszjoqgip-Gipoqzfo SJW DO Work Phone: [phone] [Moles/Vol]105 mmol/L98 - 107 PO-Uylzklrpi-Edohjpri SJW DO Work Phone: [phone] [Moles/Vol]28 mmol/L21 - 21MI-Edgetpcig-Hyomcjod SJW DO Work Phone: [phone] [Mass/Vol]0.93 mg/dLSee Below RD-Nxckpzfys-Wtieabwz SJW DO Work Phone: Comment on above:Reference Range: 0.50 - 1.05Glucose [Mass/Vol]94 mg/dL74 - 50CE-Hqkbjuqcu-Cwysahwl SJW DO Work Phone: [phone] [Moles/Vol]4.4 mmol/L3.5 - 5.3 TJ-Ibyyszfcn-Xfihpxny SJW DO Work Phone: [phone] [Mass/Vol]7.3 g/dL6.4 - 8.2 QU-Jgvnwnaix-Vbpgkbbk SJW DO Work Phone: [phone] [Moles/Vol]139 mmol/L136 - 145 ZV-Altlxsxsl-Xrrqpxhi SJW DO Work Phone: [phone] nitrogen [Mass/Vol]13 mg/dL6 - 23 JH-Byewhfjst-Vmykusad SJW DO Work Phone: [phone] 87-32-8776Tpvruie BCP dye [Mass/Vol]4.7 g/dL 3.4 - 5.0ZJ-Jexuqfwtg-FstgiuvdDallas County Medical Center DO Work Phone: ALT With P-5'-P [Catalytic activity/Vol]41 U/L7 - 45 [facility] DO Work Phone: Comment on above:Patients treated with Sulfasalazine may generate falsely decreased results for ALT.AST With P-5'-P [Catalytic activity/Vol]27 U/L9 - 18GV-Zxglysgso-ZyzoqlziDallas County Medical Center DO Work Phone: Erythrocyte distribution width (RBC) [Ratio]13.2 %See LcauzDY-Bjgwaakak-Xdcwoizt SJW DO Work Phone: Comment on above:Reference Range: 11.5 - 14.5MCHC (RBC) [Mass/Vol]32.9 g/dLSee IctsjUP-Qlfdoygyr-Uvivarci SJW DO Work Phone: Comment on above:Reference Range: 32.0 - 36.0>60>60 [facility] DO Work Phone: Comment on above:CALCULATIONS OF ESTIMATED GFR ARE PERFORMED USING THE MDRD STUDY EQUATION FOR THE IDMS-TRACEABLE CREATININE METHODS. CLIN CHEM 2007;53:766-72MRI BRAIN W WO CONTRASTon 60-73-3262Pccym are no acute intracranial changes, no evidence of ischemia or hemorrhage. There are no regions of signal abnormality. There are no areas of abnormal enhancement after contrast administration.[facility], [place]EXAMINATION: MRI BRAIN W WO CONTRAST CLINICAL [...] limits. The calvarium and soft tissues are unremarkable.[facility]- [place], [place], [facility] Incoming Radiant Results From StudyEgg/Stirplate.io - 05/09/2020 3:02 PM EDT EXAMINATION: MRI [...] no areas of abnormal enhancement after contrast administration.[facility] BRA[facility] W WO CONTRASTEXAMINATION: MRI BRAIN [...] Signed by: David Winter MD 05/09/20 Final resultNormSwedish Medical Center With Platelet and Differentialon [id number] (Bld) [#/Vol]0.1 10*3/uLNormal0.0-0.2Mgerman hospitaly [facility] MaryvaleComment on above:Performed By: #### CBCWD #### [facility] [address] [place] [address] Rteglmshc/100 WBC (Bld)0.4 %NormalMary Rutan HospitalComment on above:Performed By: #### CBCWD #### [facility] [address] [place] [address] Xhnqyvtgcjk (Bld) [#/Vol]0.5 10*3/uLNormal0.0-0.7Mary Rutan HospitalComment on above:Performed By: #### CBCWD #### [facility] [address] [place] [address] Mnuharygqkj/100 WBC (Bld)4.2 %[facility]aconess HospitalComment on above:Performed By: #### CBCWD #### [facility] [address] [place] [address] Qdihzglllob distribution width (RBC) [Ratio]12.5 %Wuuouh53.5-14.5 Mary Rutan HospitalComment on above:Performed By: #### CBCWD #### [facility] [address] [place] [address] Pocudzdqfw (Bld) [Volume fraction]39.4 %Lftfct25.0-47.0Mary Rutan HospitalComment on above:Performed By: #### CBCWD #### [facility] [address] [address] Qnssccbfyq (Bld) [Mass/Vol]13.3 g/oZOesvvc36.0-16.0Mary Rutan HospitalComment on above:Performed By: #### CBCWD #### [facility] [address] [address] Rojgjhnkisj (Bld) [#/Vol]3.2 10*3/uLNormal1.0-4.8Mary Rutan HospitalComment on above:Performed By: #### CBCWD #### [facility] [address] [address] Mmzxyxokpwm/100 WBC (Bld)26.9 %[facility]aconess HospitalComment on above:Performed By: #### CBCWD #### [facility] [address] [place] [address] AUV (RBC) [Entitic mass]29.8 hfJksfss94.0-31.3MLima [facility] Comment on above:Performed By: #### CBCWD #### [facility] [address] [place] [address] OOIK (RBC) [Mass/Vol]33.8 %Ojnuxx25.0-37.0[facility] Comment on above:Performed By: #### CBCWD #### [facility] [address] [place] [address] CWL (RBC) [Entitic vol]88.4 tWMfdpfc98.0-100.0[facility] Comment on above:Performed By: #### CBCWD #### [facility] [address] [place] [address] Ocfagtnjh (Bld) [#/Vol]0.8 10*3/uLNormal0.2-0.8[facility] Comment on above:Performed By: #### CBCWD #### [facility] [address] [place] [address] Zmqjfhvtb/100 WBC (Bld)6.8 %NormalMary Rutan HospitalComment on above:Performed By: #### CBCWD #### [facility] [address] [place] [address] Jctikiekgsy (Bld) [#/Vol]7.3 10*3/uLCritically high1.4-6.5Mary Rutan HospitalComment on above:Performed By: #### CBCWD #### [facility] [address] [place] [address] Pikbclcebmb/100 WBC (Bld)61.7 %[facility]aconess HospitalComment on above:Performed By: #### CBCWD #### [facility] [address] [place] [address] Gechgolia (Bld) [#/Vol]314 10*3/qQXbuqda800-190Oxbqw [facility] Comment on above:Performed By: #### CBCWD #### [facility] [address] [place] [address] AWA (Bld) [#/Vol]4.45 10*6/uLNormal4.20-5.40[facility] Comment on above:Performed By: #### CBCWD #### [facility] [address] [place] [address] GKM (Bld) [#/Vol]11.9 10*3/uLCritically high4.8-10.8Mary Rutan HospitalComment on above:Performed By: #### CBCWD #### [facility] [address] [place] [address] XC HEAD WO CONTRASTon [id number] HEAD WO CONTRASTCOMPARISON: No prior studies available [...] by: Jayce De Jesus DO 04/19/20 Final resultNormalMary Rutan HospitalComprehensive Metabolic Panelon 04-19-2020 Albumin [Mass/Vol]4.9 g/dLCritically high3.5-4.6MLima Memorial HospitalComment on above:Performed By: #### CMP #### [facility] [address] [place] [address] BXO [Catalytic activity/Vol]40 U/ULrebjr07-360QzvqlMary Rutan Hospital Comment on above:Performed By: #### CMP #### [facility] [address] [place] [address] CSQ [Catalytic activity/Vol]17 U/LNormal0-33[facility] Comment on above:Performed By: #### CMP #### [facility] [address] [place] [address] Zhucp gap [Moles/Vol]14 mmol/LNormal9-15Mary Rutan HospitalComment on above:Performed By: #### CMP #### [facility] [address] [place] [address] FSE [Catalytic activity/Vol]17 U/LNormal0-35[facility] Comment on above:Performed By: #### CMP #### [facility] [address] [place] [address] Dtjifhusm [Mass/Vol]mg/dLNormal0.2-0.7Mary Rutan HospitalComment on above:Performed By: #### CMP #### [facility] [address] [place] [address] Mplqyfg [Mass/Vol]10.0 mg/dLCritically high8.5-9.9Mary Rutan HospitalComment on above:Performed By: #### CMP #### [facility] [address] [place] [address] Qgddrxdv [Moles/Vol]101 mmol/WQzfeju45-244YjbkhMary Rutan Hospital Comment on above:Performed By: #### CMP #### [facility] [address] [place] [address] HO0 [Moles/Vol]24 mmol/IZwlqwa03-42ZqhqqMary Rutan HospitalComment on above:Performed By: #### CMP #### [facility] [address] [place] [address] Ufiaqlxvwm [Mass/Vol]0.87 mg/dLNormal0.50-0.90[facility] Comment on above:Performed By: #### CMP #### [facility] [address] [place] [address] VKH/1.73 sq M predicted among blacks MDRD (S/P/Bld) [Vol rate/Area] mL/min/{1.73_m2}Normal>60Mary Rutan HospitalComment on above:Result Comment: >60 mL/min/1.73m2 EGFR, calc. for ages 18 and older using the MDRD formula (not corrected for weight), is valid for stable renal function.Performed By: #### CMP #### [facility] [address] [place] [address] KBW/1.73 sq M.predicted MDRD (S/P/Bld) [Vol rate/Area] mL/min/{1.73_m2}Normal>60Mary Rutan HospitalComment on above:Result Comment: >60 mL/min/1.73m2 EGFR, calc. for ages 18 and older using the MDRD formula (not corrected for weight), is valid for stable renal function.Performed By: #### CMP #### [facility] [address] [place] [address] Hhwmzpdc (S) [Mass/Vol]3.1 g/dLNormal2.3-3.5[facility] Comment on above:Performed By: #### CMP #### [facility] [address] [place] [address] Jhrhqye [Mass/Vol]94 mg/pGNckvms78-25MeugdLima Memorial HospitalComment on above:Performed By: #### CMP #### [facility] [address] [place] [address] Jevsbnroa [Moles/Vol]3.9 mmol/LNormal3.4-4.9[facility] Comment on above:Performed By: #### CMP #### [facility] [address] [place] [address] Ggugidm [Mass/Vol]8.0 g/dLNormal6.3-8.0Mary Rutan HospitalComment on above:Performed By: #### CMP #### [facility] [address] [place] [address] Xtlbvo [Moles/Vol]139 mmol/HRefddh767-756FrmchMary Rutan HospitalComment on above:Performed By: #### CMP #### [facility] [address] [place] [address] Bjxn nitrogen [Mass/Vol]12 mg/dLNormms6-20[facility] Comment on above:Performed By: #### CMP #### [facility] [address] [place] [address] Zrtjxe Acidon 06-91-0065Qjypfds [Moles/Vol]1.8 mmol/LNormal0.5-2.2 Mary Rutan HospitalComment on above:Performed By: #### LACID #### [facility] [address] [place] [address] Dyccqkwqygc 10-52-4070Iiqzpfbgq777.8 ng/mLNOnslow Memorial Hospital Comment on above:Result Comment: Default Normal Ranges Female Male Non: 4.8-23.3 4.0-15.2Performed By: #### PROLA #### [facility] [address] [address] Htnjh HCG Qualitativeon 57-06-8380MVU.beta subunit QnNegativeNormal Mary Rutan HospitalComment on above:Performed By: #### SHCG #### [facility] [address] [place] [address] Jtrnrpohfa, reflex to cultureon 52-55-7839Nzqad Reflexed to Culture Not IndicatedNormalMary Rutan HospitalComment on above:Performed By: #### UAR #### [facility] [address] [address] Ylikebodm Ql (U)NegativeNormalNegativeMary Rutan HospitalComment on above:Performed By: #### UAR #### [facility] [address] [place] [address] Qhchdwb (U)ClearNormalClearMary Rutan HospitalComment on above: Performed By: #### UAR #### [facility] [address] [place] [address] Dhrtt (U)YellowNormalStraw/YellMary Rutan HospitalComment on above: Performed By: #### UAR #### [facility] [address] [place] [address] Wuorgcq Ql (U)NegativeNormalNegVentura County Medical CenterComment on above:Performed By: #### UAR #### [facility] [address] [place] [address] Njnztgtaul Ql (U)Trace-intactNormalNegVentura County Medical Center Comment on above:Performed By: #### UAR #### [facility] [address] [place] [address] Vlcmjhj Ql (U)NegativeNormalNegVentura County Medical CenterComment on above:Performed By: #### UAR #### [facility] [address] [place] [address] Lewzraztq esterase Test strip Ql (U)NegativeNormalNegVentura County Medical CenterComschoolcraft memorial hospital on above:Performed By: #### UAR #### [facility] [address] [place] [address] Sqgpkcl Ql (U)NegativeNormalNegVentura County Medical CenterComment on above:Performed By: #### UAR #### [facility] [address] [place] [address] uU (U)6.0 [pH]Normal5.0-9.0Mary Rutan HospitalComment on above: Performed By: #### UAR #### [facility] [address] [place] [address] Jvhbmdn Ql (U)NegativeNormalNegVentura County Medical CenterComment on above:Performed By: #### UAR #### [facility] [address] [place] [address] Lbvmrnsx gravity (U) [Rel density]1.392Hygval7.005-1.03Mary Rutan HospitalComment on above:Performed By: #### UAR #### [facility] [address] [place] [address] Wfwgbvemoaiy Qn (U)0.2 {Alan'U}/dLNormal< 2.0[facility] Comment on above:Performed By: #### UAR #### [facility] [address] [place] [address] Omcxu Microscopicon 58-58-1060Gsaawvbnpt cells LM Ql (Urine sed)0-2 NormalMary Rutan HospitalComment on above:Performed By: #### UMIC #### [facility] [address] [place] [address] LKR (U) [#/Vol]9-5Ooabyf4-5SnrgkLima Memorial HospitalComment on above: Performed By: #### UMIC #### [facility] [address] [place] [address] NKD (U) [#/Vol]7-8Tpbmej7-8NkcbzMary Rutan HospitalComment on above: Performed By: #### UMIC #### [facility] [address] [place] [address] NOO Auto Differentialon 20-13-9276Vqdyhitoq (Bld) [#/Vol]0.1 10*3/uL 0 - 0.2 K/uLAcmc Healthcare System Glenbeighcy Health- [place], KYBasophils/100 WBC (Bld)0.4 %[facility]- [place], [place] Eosinophils (Bld) [#/Vol]0.5 10*3/uL0 - 0.7 K/uLAcmc Healthcare System Glenbeighcy Health- [place], [place] Eosinophils/100 WBC (Bld)4.2 %[facility]- [place], KYErythrocyte distribution width (RBC) [Ratio]12.5 %11.5 - 14.5 %[facility]- [place], KYHematocrit (Bld) [Volume fraction]39.4 %37 - 47 %[facility]- [place], KYHemoglobin (Bld) [Mass/Vol]13.3 g/dL 12 - 16 g/dLHocking Valley [facility]- [place], KYInterpretation and review of laboratory results AbnormalHolmes County [facility]- [place], KYLymphocytes (Bld) [#/Vol]3.2 10*3/uL1 - 4.8 K/uL [facility]- [place], KYLymphocytes/100 WBC (Bld)26.9 %[facility]- [place], KYMCH (RBC) [Entitic mass]29.8 pg27 - 31.3 pgHocking Valley Community Hospital Health- [place], KYMCHC (RBC) [Mass/Vol]33.8 %33 - 37 %[facility]- [place], KYMCV (RBC) [Entitic vol]88.4 fL82 - 100 fLHocking Valley Community Hospital Health- [place], KYMonocytes (Bld) [#/Vol]0.8 10*3/uL0.2 - 0.8 K/uLHocking Valley Community Hospital Health- [place], KYMonocytes/100 WBC (Bld)6.8 %[facility]- [place], KYNeutrophils Absolute7.3 K/uL High1.4 - 6.5 K/uLHocking Valley Community Hospital Health- [place], KYNeutrophils/100 WBC (Bld)61.7 %[facility]- [place], KYPlatelets (Bld) [#/Vol]314 10*3/uL130 - 400 K/uLHocking Valley Community Hospital Health- [place], KYRBC (Bld) [#/Vol]4.45 10*6/uLHocking Valley Community Hospital Health- [place], KYWBC (Bld) [#/Vol]11.9 10*3/uL High4.8 - 10.8 K/uLHocking Valley Community Hospital Health- [place], KYComprehensive Metabolic Panelon 02-58-5698Qodgfth [Mass/Vol]4.9 g/dLHigh3.5 - 4.6 g/dLHocking Valley Community [facility]- [place], KYALP [Catalytic activity/Vol]40 U/L40 - 130 U/LMbrown memorial hospital [facility]- [place], KYALT [Catalytic activity/Vol]17 U/L0 - 33 U/LMercy Health- [place], KYAnion gap [Moles/Vol]14 mmol/L [facility]- [place], KYAST [Catalytic activity/Vol]17 U/L0 - 35 U/LMercy Health- [place], KYBilirubin Ql (U)<0.20.2 - 0.7 mg/dLHocking Valley Community [facility]- [place], KYCalcium [Mass/Vol] 10.0 mg/dLHigh8.5 - 9.9 mg/dLMercy Health- [place], KYChloride [Moles/Vol]101 mmol/L [facility]- [place], KYCO2 [Moles/Vol]24 mmol/LMgerman hospitaly Health- [place], KYCreatinine [Mass/Vol]0.87 mg/dL0.5 - 0.9 mg/dLHocking Valley Community [facility]- [place], KYGFR >60.0 >60[facility]- [...] function. Globulin (S) [Mass/Vol]3.1 g/dL2.3 - 3.5 g/dLHolmes County [facility]- [place], KYGlucose [Mass/Vol]94 mg/dL70 - 99 mg/dLHocking Valley [facility]- [place], KYInterpretation and review of laboratory resultsAbnormalMerLifePoint Health- [place], KYPotassium [Moles/Vol]3.9 mmol/L [facility]- [place], KYProtein [Mass/Vol]8.0 g/dL6.3 - 8 g/dLHolmes County [facility]- [place], [place] Sodium [Moles/Vol]139 mmol/LMbrown memorial hospital [facility]- [place], KYUrea nitrogen [Mass/Vol]12 mg/dL 6 - 20 mg/dLHolmes County [facility]- [place], KYHCG Qualitative, Serumon [id number] Qual NegativeMerLifePoint Health- [place], KYLactic Acid, Plasmaon 67-25-8761Rkzhmzn [Moles/Vol] 1.8 mmol/L0.5 - 2.2 mmol/LMgerman hospitaly Health- [place], KYMicroscopic Urinalysison 20-79-4125Oqtdgibrjf Cells, UA0-2/HPFHocking Valley Community Hospital [facility]- [place], KYRBC (U) [#/Vol]0-2Mgerman hospitaly Health- [place], KYWBC, UA0-2[facility]- [place], KYUrine Reflex to Cultureon 67-45-0558Viqjsvlss UrineNegativeNegativeMercy Health- [place], KYBlood, Urine Trace-intactNegativeMercy Health- [place], KYClarity, UAClearClearMercy Health- [place], KYColor, UAYellowStraw/YellowMercy Health- [place], KYGlucose, UrNegativeNegative mg/dLMercy Health- [place], KYKetones Ql (U)NegativeNegative mg/dLMercy Health- [place], KYLeukocyte esterase Test strip Ql (U)NegativeNegativeMercy Health- [place], [place] Nitrite, UrineNegativeNegativeMercy Health- [place], KYpH, UA6.0[facility]- [place], [place] Protein (U) [Mass/Vol]NegativeNegative mg/dLMercy Health- [place], KYSpecific [place], UA1.020[facility]- [place], KYUrine Reflex to CultureNot IndicatedMercy Health- [place], KYUrobilinogen, Urine0.2<2.0 E.U./dLMercy Health- [place], [place] ECHOCARDIOGRAPHY REPORT (HL)on [id number] REPORT (HL)CANTU, PRINCESS [id number] [id number] 179.6F 1.86w4WjiyutfovnGZEGDMCKCPSUSS LABReferring: Koffi Uriarte A.Reading: CURTIS GARCIA Transthoracic [...] 4 CH 16.1 cm2LA Volume Indexed 21.05 ml/s6Nncvijstd/Systolic FunctionMV E- wave Vmax 0.884 m/secMV deceleration time 193 msecMV A-wave Vmax 0.494 m/secLV septal e' Vmax 0.115 m/secLV lateral e' Vmax 0.189 m/secLV E:e' septal ratio 7.[address] [facility] PRINCESS CANTU [id number] [place] [address] [id number] 93Koffi Uriarte MDECHOCARDIOGRAPHY REPORTLV E:e' lateral ratio [...] There is no evidence ofpulmonic regurgit ation. [facility] PRINCESS CANTU [id number] [place] [address] [id number] 93Koffi Uriarte MDECHOCARDIOGRAPHY REPORTPericardium:There is no pericardial [...] is a normal echocardiogram.PARAS GARCIA05/10/2017 10: 26:53 [facility] PRINCESS CANTU [id number] [place] [address] [id number]/16/94[facility] ValleyKoffi roper MDECHOCARDIOGRAPHY REPORTNormalSaint Mary Star[facility] Harper Geriatric Psychiatry CenterBASIC METABOLIC PANELon 59-85-1309Izaby gap10 mmol/LNormal6-18[facility] Psychiatry CenterComment on above: Order Comment: Is patient fasting? YESPerformed By: #### LBMP, LGFRP ####[facility] U[address]frzhvqq45[address] [place], [place] [address]Calcium9.6 mg/dLNormal 8.6-10.3SLogan County HospitalComment on above:Order Comment: Is patient fasting? YESPerformed By: #### LBMP, LGFRP ####[facility] Tybkjeydvz60712 [place], [place] [address]Rczrhtzj277 mmol/DZeiyxo14-971DajynStar Valley Medical Center - [facility]on Comment on above:Order Comment: Is patient fasting? YESPerformed By: #### LBMP, LGFRP ####[facility] Z[address]yskknwb40307 [place], [place] [address] mmol/L Doivpj68-10RodmzStar Valley Medical Center - AftonComment on above:Order Comment: Is patient fasting? YESPerformed By: #### LBMP, LGFRP ####[facility] Clghkgrxcq[address] [place] [address]Hqvtmfallg8.74 mg/dLNormal0.5-1.05[facility] Center - AftonComment on above:Order Comment: Is patient fasting? YESPerformed By: #### LBSHAWN, LGFRP ####[facility] A[address]uz[address]bnx[address] [place] [address]Ilmjips mass conc82 mg/nALjmyjz56-90QioffStar Valley Medical Center - AftonComment on above:Order Comment: Is patient fasting? YESPerformed By: #### LBSHAWN, LGFRP ####[facility] Uevvdvcwzi[address] [place] [address]Zfoabypwa molar conc4.1 mmol/LNormal3.5-5.3SLogan County HospitalComment on above:Order Comment: Is patient fasting? YESPerformed By: #### LBMP, LGFRP ####[facility] Krbbnhnpex[address] [place] [address]Lbvmoi997 mmol/FQwy064-394ApyxzStar Valley Medical Center - AftonComment on above:Order Comment: Is patient fasting? YESPerformed By: #### LBMP, LGFRP ####[facility] Wzjrbugmpl42447 [place], [place] [address]Fgkx sehkmqbn35 mg/dLNormal6-23[facility] - AftonComment on above:Order Comment: Is patient fasting? YESPerformed By: #### LBMP, LGFRP ####[facility] Z[address]fhsnvsmm[address] [place] [address]PUZ AUTOon 05-04-2017 Erythrocyte distribution width Auto Ratio (RBC)12.8 %Rnrdyw39.5-14.5SLogan County HospitalComment on above:Performed By: #### LCBC ####[address] [address]Wzygyihtispd (RBC)4.65 10*6/uLNormal3.5-5.5 [facility] - AftonComment on above:Performed By: #### LCBC ####[address] [address]Pjxqxjzvrp (HCT)41.1 %Normal 36.0-48.0[facility] - AftonComment on above:Performed By: #### LCBC ####[address] [address]Gzixotnhxr mass conc (Bld)13.8 g/lOIscljv18.0-15.0[facility] - AftonComment on above: Performed By: #### LCBC ####[address] [address]HZT49.7 lsBaxsof41.4-34.6[facility] - AftonComment on above: Performed By: #### LCBC ####[address] [address]QZRK mass conc (RBC)33.6 g/eZGenejc96.0-36.0[facility] Comment on above:Performed By: #### LCBC ####[address] [address]OXJ53.4 lIVyljyz75.0-98.0[facility] - AftonComment on above:Performed By: #### LCBC ####[address] [address]Fbxvkinb mean volume (PMV)9.3 fLNormal8.4-11.9[facility] - AftonComment on above:Performed By: #### LCBC ####[address] [address]Jckccrqox494 10*3/nZZjsrgv251-267WzupbStar Valley Medical Center - AftonComment on above:Performed By: #### LCBC ####[facility] Mgzckcbigl18250 [place], [place] [address]UPX (Leukocytes)6.1 10*3/uLNormal3.9-11.0 [facility] - AftonComment on above:Performed By: #### LCBC ####[facility] Vvvbfmzrcs58368 [place], [place] [address]XXHRQKTPHC FILTRATION RATE ESTon 62-56-3153yTMK (non-black)mL/min/{1.73_m2}Normal> 60[facility] - AftonComment on above:Order Comment: Is patient fasting? YESPerformed By: #### LBMP, LGFRP ####[facility] Ngxukpmckq86715 [place], [place] [address]MN AMER> 90Normal> 60[facility] - AftonComment on above:Order Comment: Is patient fasting? YESResult Comment: Effective 12/12/14:CKD-EPI equation / based on IDMS traceable creatinine.Continue touse the CREAT CLR-DOSE (Cockgroft-Gault)value for determining medication dose.Performed By: #### LBMP, LGFRP ####[facility] Lgpzqsomrf16358 [place] [address] Vital Signs Date TimeVital SignValuePerforming EuoitxjgnVyidwekf04-47-1992 10:07-0400Body mass index (BMI) [Ratio]27.02 kg/m2Roula VILLEDA Work Phone: [facility] HospitalIqdutogcbm52-92-2469 10:07-0400Body .01 kgRoula VILLEDA Work Phone: [phone] HospitalQpkjtfujvq21-45-0458 10:07-0400Diastolic blood zjywwrxe06 mm[Hg]Roula VILLEDA Work Phone: [phone] HospitalJvzceqvfxi39-63-8413 10:07-0400Systolic blood ndhtvnyk028 mm[Hg]Roula VILLEDA Work Phone: [employer] FundCedar County Memorial HospitalDvwhdzcwvm27-44-2259 15:12-0400Body mass index (BMI) [Ratio]27.04 kg/m8IokbwWillis Chen DO Work Phone: [phone] [place], [place] [address]Cmjldunebf42-89-8108 15:12-0400Body tlqjox57.06 kgCorey April DO Work Phone: [phone] [place], [place] [address]Yxtlxzalvi14-83-2175 15:12-0400Diastolic blood atspfyds98 mm[Hg]Willis April DO Work Phone: [phone] [place], [place] [address]Duopgvadqw93-21-5747 15:12-0400Systolic blood mm[Hg]Willis April DO Work Phone: [phone] [place] [address]-20-2025 15:39-0400Body mass index (BMI) [Ratio]26.26 kg/m2Amy Mitchel VILLEDA Work Phone: [phone])[facility] [place], [place] [address]Lyoptcyvww91-16-5466 15:39-0400Body wsdown81.65 kgAmy Mitchel VILLEDA Work Phone: [phone])[facility] [place], [place] [address]Hfzeqqzywk18-02-2563 15:39-0400Diastolic blood lyjtlizg95 mm[Hg]Roula VILLEDA Work Phone: [phone] [place], [place] [address]Tacrimqztj48-47-7591 15:39-0400Systolic blood qejkvpgl283 mm[Hg]Roula VILLEDA Work Phone: [phone] [place], [place] [address]Xrqjekksqr35-36-0492 15:09-0400Body mass index (BMI) [Ratio]26.11 kg/d7Cnyxu April DO Work Phone: [phone])[facility] [place], [place] [address]Ikcwxinmld99-91-1976 15:09-0400Body hytcxm38.2 kg Willis April DO Work Phone: [phone])[facility] [place], [place] [id number] 15:09-0400Diastolic blood baoeryfk25 mm[Hg]Willis April DO Work Phone: 1([phone])[facility] [place], [place] [id number] 15:09-0400Systolic blood qoorvxwq048 mm[Hg]Willis April DO Work Phone: [phone])[facility] [place], [place] [id number] 09:35-0400Body mass index (BMI) [Ratio]25.92 kg/m2Amy Mitchel VILLEDA Work Phone: 1(327)[facility]-[address] [place], [place] [address] 09:35-0400Body jnqoym52.61 kgRoula VILLEDA Work Phone: 1(810)412-[address] [place], [place] [address]Kmuudwbbby68-89-5764 09:35-0400Diastolic blood eglugcar37 mm[Hg]Roula VILLEDA Work Phone: [facility] HospitalXrkujpugbl18-76-2842 09:35-0400Systolic blood ewsybplx548 mm[Hg]Roula VILLEDA Work Phone: 1(310)640-[address] [place], [place] [address]Virbrekiut95-70-2181 11:56-0400Body mass index (BMI) [Ratio]26.55 kg/p5WqnpfSt. [facility]06-27-2025 11:56-0400Body weight 81.56 kgSt[facility]02-25-2025 12:28-0500Body uaatkb296.3 cmKoffi Uriarte MD Work Phone: 1([phone])226-[facility]02-25-2025 12:28-0500 Body mass index (BMI) [Ratio]27.06 kg/e6MrxnyiwKoffi Uriarte MD Work Phone: [phone]02-25-2025 12:28-0500 Body hsdctbilfyp09.3 [degF]Koffi Uriarte MD Work Phone: 1([phone]-[facility]02-25-2025 12:28-0500 Body djwyqa64.12 kgKoffi Uriarte MD Work Phone: [facility]02-25-2025 12:28-0500 Diastolic blood ojriueim36 mm[Hg]Koffi Uriarte MD Work Phone: [facility]02-25-2025 12:28-0500 Heart rate71 /minKoffi Uriarte MD Work Phone: [facility]02-25-2025 12:28-0500 Systolic blood gzvlavfd145 mm[Hg]Koffi Uriarte MD Work Phone: [facility]10-16-2024 09:18-0400 Body ownkqc852.3 Tawanda Calderon MD Work Phone: [facility]10-16-2024 09:18-0400 Body mass index (BMI) [Ratio]28.15 kg/a6VcdxrbNedra Calderon MD Work Phone: [facility]10-16-2024 09:18-0400 Body vttbkvacrtx27.91 [degF]Nedra Calderon MD Work Phone: [facility]10-16-2024 09:18-0400 Body wakyrk76.46 kgNedra Calderon MD Work Phone: [facility]10-16-2024 09:18-0400 Diastolic blood yhhydvow17 mm[Hg]Nedra Calderon MD Work Phone: [facility]10-16-2024 09:18-0400 Heart rate67 /Wilner Calderon MD Work Phone: [facility]10-16-2024 09:18-0400 Systolic blood mm[Hg]Nedra Calderon MD Work Phone: [facility]04-23-2024 15:27-0400 Body .26 [facility] 15:27-0400Body mass index (BMI) [Ratio]28.2 kg/h4GrrwnxvyhOhiohealth [facility] Hospital04-23-2024 15:27-0400Body cqbkyxgayuh19.1 [degF][facility]04-23-2024 15:27-0400Body qbrjup81.74 kgOhio[facility]04-23-2024 15:27-0400Heart rate63 /[facility]04-23-2024 15:27-0400Respiratory rate18 /[facility]04-23-2024 15:27-5735VqL4% (BldA) [Mass fraction]99 %[facility] 07-31-2022 10:54-0500Body zusvck967.26 cmKoffi Uriarte Work Phone: [facility]-[place] Work Phone: 1(334) 380-132101-13-2023 10:54-0500Body mass index (BMI) [Ratio] 31.01 kg/a1Proomse A Chapito Work Phone: mp-[place] Work Phone: 1(926) 576-797201-13-2023 10:54-0500Body surface area Derived from formula2.11 q8Jelcgwk A Chapito Work Phone: mp-[place] Work Phone: 1(931) 709-864401-13-2023 10:54-0500Body mpusmieehhr53.6 [degF] Koffi A Chapito Work Phone: mp-[place] Work Phone: 1(662) 834-664101-13-2023 10:54-0500Body wgrxte97.26 kgMonique A Chapito Work Phone: mp-[place] Work Phone: 1(127) 411-929201-13-2023 10:54-0500Diastolic blood lqlhperi20 mm[Hg] Koffi Alison Uriarte Work Phone: [facility] Work Phone: 1(812) 115-440201-13-2023 10:54-0500Heart rate76 /minMonique A Chapito Work Phone: mp-[place] Work Phone: 1(285) 649-946401-13-2023 10:54-0500Respiratory rate18 /minMonique A Chapito Work Phone: mp-[place] Work Phone: 1(211) 139-294601-13-2023 10:54-0500Systolic blood ummftwpy114 mm[Hg] Koffi Alison Uriarte Work Phone: mpRace NationLake [place] Work Phone: 1(568) 731-652806-08-2022 11:32-0400Body gebxud391.26 cmMonique A Uriarte Work Phone: mp777-7833KT-Tyztwkoda-[place] S[place]W DO Work Phone: 1(980) 704-242606-08-2022 11:32-0400Body mass index (BMI) [Ratio] 31.03 kg/v3Kaygrea A Uriarte Work Phone: mp584-2556IG-Zxnatpkxq-[place] SJW DO Work Phone: 1(905) 236-713806-08-2022 11:32-0400Body surface area Derived from formula2.11 y4Ztlzgld A Uriarte Work Phone: mp528-6405UB-Kldsfrjgh-[place] SJW DO Work Phone: 1(410) 851-260806-08-2022 11:32-0400Body rndnaxdpizh22.1 [degF] Koffi Alison ClementeUriarte Work Phone: mp357-8758AI-Sdknstegm-[place] W DO Work Phone: 1(498) 438-175906-08-2022 11:32-0400Body thkcxa60.3 kgMonique A Uriarte Work Phone: mp974-6458TG-Wacancesf-[place] W DO Work Phone: 1(456) 478-166506-08-2022 11:32-0400Diastolic blood squfufyr67 mm[Hg] Koffi Alison Uriarte Work Phone: mp099-4725RH-Guawswuzc-[place] W DO Work Phone: 1(420) 442-883506-08-2022 11:32-0400Heart rate54 /minMonique A Chapito Work Phone: mp111-6004NA-Bizjbrgmg-[place] SJW DO Work Phone: 1(298) 436-635206-08-2022 11:32-3293UkI4% (BldA) [Mass fraction]100 % Koffiminesh Uriarte Work Phone: mp674-2006BI-Goblxgrbg-[place] SJW DO Work Phone: 1(741) 282-134906-08-2022 11:32-0400Systolic blood jbhmynok936 mm[Hg] Koffi A Chapito Work Phone: mp287-1730KP-Skkxocbrf-[place] SJ DO Work Phone: 1(965) 623-799905-02-2022 13:08-0400Body jbwyqa581.72 cmMonique A Chapito Work Phone: mp-WSPC[place] Work Phone: 1(728) 950-720905-02-2022 13:08-0400Body mass index (BMI) [Ratio] 32.39 kg/k5Pefldot A Chapito Work Phone: mp-[place] Work Phone: 1(243) 927-975805-02-2022 13:08-0400Body surface area Derived from formula2.1 z6Csjqnnj A Chapito Work Phone: mp-WSPC[place] Work Phone: 1(222) 188-979505-02-2022 13:08-0400Body zasrnwbxwgc79 [degF]Koffi A Chapito Work Phone: mp-[place] Work Phone: 1(827) 844-190405-02-2022 13:08-0400Body .62 kgMonique A Chapito Work Phone: mp-[place] Work Phone: 1(100) 583-250705-02-2022 13:08-0400Diastolic blood fhkwrrvi35 mm[Hg] Koffi A Chapito Work Phone: mp-[facility] Work Phone: 1(901) 785-199905-02-2022 13:08-0400Heart rate70 /minMonique A Chapito Work Phone: mp-[facility] Work Phone: 1(426) 773-476605-02-2022 13:08-0400Respiratory rate18 /minMonique A Chapito Work Phone: mp-[facility] Work Phone: 1(580) 563-989205-02-2022 13:08-6453HvO8% (BldA) [Mass fraction]96 % Koffi Uriarte Work Phone: mp-[facility]SP[facility] Work Phone: 1(451) 958-120805-02-2022 13:08-0400Systolic blood eybrytis466 mm[Hg] Koffi Uriarte Work Phone: mp-WSPC-[employer] Work Phone: 1(535) 385-616712-08-2021 10:54-0500Body iuyirp439.72 cmKoffi Uriarte Work Phone: mp203-8578RH-Fgqpotrfu-[place] W DO Work Phone: 1(503) 911-444612-08-2021 10:54-0500Body mass index (BMI) [Ratio] 32.08 kg/o4NmmvfirKoffi Uriarte Work Phone: mp394-9223QT-Hctyjhwxl-[place] W DO Work Phone: 1(995) 373-519912-08-2021 10:54-0500Body surface area Derived from formula2.09 w6KaudxbpKoffi Clementeson Work Phone: mp791-9749MV-Bjmesnsak-[place] W DO Work Phone: 1(291) 491-768312-08-2021 10:54-0500Body puuekwbhlyp09.1 [degF] Koffi Uriarte Work Phone: mp495-9842KD-Hfeosirxs-[place] SJW DO Work Phone: 1(934) 420-439112-08-2021 10:54-0500Body mzarxn32.71 kgKoffi Clementeson Work Phone: mp097-4447BY-Skqqgtmyv-[place] SJW DO Work Phone: 1(454) 380-547312-08-2021 10:54-0500Diastolic blood ncorvlii43 mm[Hg] Koffi Clementeson Work Phone: mp101-6758ZO-Atycbmokk-[place] SJW DO Work Phone: 1(470) 336-780612-08-2021 10:54-0500Heart rate67 /minMonminesh Clementeson Work Phone: mp335-1222VP-DywkyjmyhVal[facility] DO Work Phone: 1(734) [phone] 10:54-0500Respiratory rate18 /minMonminesh Uriarte Work Phone: mp781-5300HK-BagmayljlValley Springs Behavioral [facility] Hospital DO Work Phone: 1(612) 778-566512-08-2021 10:54-3354HcT2% (BldA) [Mass fraction]99 % Koffi Uriarte Work Phone: mp572-5678YJ-VuivrrtieValley Springs [facility]al Health Hospital DO Work Phone: 1(997) 346-198712-08-2021 10:54-0500Systolic blood rgjrikly110 mm[Hg] Koffi Uriarte Work Phone: mp864-6255WV-XfhzikaglValley Springs [facility]al Health Hospital DO Work Phone: 1(573) 993-469511-02-2021 15:59-0400Body pozmpg945.72 cmMonminesh Clementeson Work Phone: mp-[employer] Work Phone: 1(218) 175-912211-02-2021 15:59-0400Body mass index (BMI) [Ratio] 31.93 kg/o9Cwjfcecminesh Uriarte Work Phone: mp-[employer] Work Phone: 1(311) 681-291811-02-2021 15:59-0400Body surface area Derived from formula2.09 m4TqeevvuKoffi Clementeson Work Phone: mp-[employer] Work Phone: 1(857) 330-384311-02-2021 15:59-0400Body bhrcaefcfhn47.1 [degF] Koffi Clementeson Work Phone: mp3[employer] Work Phone: 1(114) 791-652311-02-2021 15:59-0400Body phtdro70.26 kgMonique Alison ClementeUriarte Work Phone: mp3[employer]od Work Phone: 1(586) 778-169011-02-2021 15:59-0400Diastolic blood ggriaaid02 mm[Hg] Koffi Uriarte Work Phone: mp-[place] Work Phone: 1(489) 719-193411-02-2021 15:59-0400Heart rate72 /minMonique A Chapito Work Phone: mp-[place] Work Phone: 1(280) 352-103011-02-2021 15:59-0400Respiratory rate16 /minMonique A Chapito Work Phone: mp-[place] Work Phone: 1(104) 848-492511-02-2021 15:59-0400Systolic blood fwjsavlh146 mm[Hg] Koffi Uriarte Work Phone: mp-[place] Work Phone: 1(868) 768-363506-08-2021 14:45-0400Body wyjqvm450.72 cmMonique A Chapito Work Phone: mp-[place] Work Phone: 1(510) 517-707206-08-2021 14:45-0400Body mass index (BMI) [Ratio] 30.71 kg/s8Vlmyhzh A Chapito Work Phone: mp-[place] Work Phone: 1(593) 265-697806-08-2021 14:45-0400Body surface area Derived from formula2.05 g9Jxcggvg A Uriarte Work Phone: mp-[place] Work Phone: 1(573) 622-509506-08-2021 14:45-0400Body otkxihqnhpd06.8 [degF] Koffi A Uriarte Work Phone: mp-[place] Work Phone: 1(236) [phone] 14:45-0400Body sjybao35.63 kgMonique A Uriarte Work Phone: mp-[place] Work Phone: 1(973) 249-620906-08-2021 12:59-0400Body .72 cmMonique A Chapito Work Phone: mp-WSPCSlingJennifer Ruby Work Phone: 1(494) 661-953106-08-2021 12:59-0400Body mass index (BMI) [Ratio] 30.71 kg/m2Jpskbdo A Uriarte Work Phone: mp-[place] Work Phone: 1(389) 792-161906-08-2021 12:59-0400Body surface area Derived from formula2.05 s5Bmalfsw A Uriarte Work Phone: mp-[place] Work Phone: 1(236) [phone] 12:59-0400Body hnoprmhzneu26.2 [degF] Koffi A Chapito Work Phone: mp-[place] Work Phone: 1(479) 811-749106-08-2021 12:59-0400Body .63 kgMonique A Chapito Work Phone: mp-[place] Work Phone: 1(476) 487-413706-08-2021 12:59-0400Diastolic blood zvsousno61 mm[Hg] Koffi A Chapito Work Phone: mp-[place] Work Phone: 1(534) 741-434506-08-2021 12:59-0400Heart rate75 /minMonique A Uriarte Work Phone: mp-[place] Work Phone: 1(213) 835-638706-08-2021 12:59-0400Respiratory rate16 /minMonique A Uriarte Work Phone: mp-WSPCSlingJennifer Ruby Work Phone: 1(971) [phone] 12:59-0400Systolic blood wvbefdrf203 mm[Hg] Koffi A Uriarte Work Phone: mp-WSPC[place] Work Phone: 1(789) 286-952601-27-2021 13:26-0500BMI (Body Mass Index)29.04 kg/m2 Koffi UriarteCodyhymxrkUW-Cthgyrjmz-Lmogasyc W DO Work Phone: 1(281) 330-159401-27-2021 13:26-0500Body Oiyttddtgql26.5 [degF] Koffi UriarteTclaxqnjcmVN-Rimbbolvp-Frcwuktz W DO Work Phone: 1(736) 394-968001-27-2021 13:26-0500Body .64 kgKoffi UriarteMppbuprudfOK-Yromtqdes-Bjffmxwb W DO Work Phone: 1(899) [phone] 13:26-0500BP Nmawzkxfo547 mm[Hg]Koffi ClementeUbxtxbsnppPE-Mbowaseye-Fbzafumq W DO Work Phone: 1(155) 297-924601-27-2021 13:26-0500BP Rqsktfmv275 mm[Hg]Koffi TavarezUwoxqhudtcGK-Xoyzhutth-Jqucmolw W DO Work Phone: 1(649) 384-934801-27-2021 13:26-0500BSA (Body Surface Area)2 m2 Koffi UriarteTfzanveqjwJH-Mrdbhstlg-Exbgsjio W DO Work Phone: 1(655) [phone] 13:26-5626Ehdpiv899.72 cmKoffi Uriarte BW-Ptmetesvi-Wbsmffum SJW DO Work Phone: 1(580) 182-985311-10-2020 15:24-0500BMI (Body Mass Index)28.59 kg/m2 Koffi TavarezJpgodpwtosHQ-KVZF-Xbqs [place] Work Phone: 1(199) 234-210411-10-2020 15:24-0500Body Skbixenwqjy41.6 [degF] Koffi UriarteIzkrowwtcoFK-CFYW-Yvuw [place] Work Phone: 1(992) 575-356211-10-2020 15:24-0500Body vgfsee77.28 kgKoffi UriarteXaufxmxlyvSV-GFTP-[place] Work Phone: 1(224) 285-851311-10-2020 15:24-0500BP Dhfcaolza73 mm[Hg]Koffiminesh TavarezLscliswmtrXQ-BRTC-Gvxu [place] Work Phone: 1(161) 151-261711-10-2020 15:24-0500BP Xoftsvmf599 mm[Hg]Koffi JohnsonPfnpxghmoyHJ-VDIR-Qemr [place] Work Phone: 1(982) 528-897411-10-2020 15:24-0500BSA (Body Surface Area)1.99 m2 Koffi UriartePuukmkizcqAZ-JNIJ-Fyyg [place] Work Phone: 1(761) 448-710811-10-2020 15:24-4547Jxhmdw316.72 cmKoffi Uriarte [facility] Work Phone: 1(451) 283-669911-10-2020 15:24-0500Pulse (Heart Rate)70 /minKoffi TavarezZlojttuqdrUC-LNFV-Zegt [place] Work Phone: 1(748) 207-867611-10-2020 15:24-0500Respiratory Rate18 /minKoffi TavarezZjolymaqorGX-VFCL-Fwdr [place] Work Phone: 1(561) 192-965310-08-2020 16:01-0400BMI (Body Mass Index)28.59 kg/m2 Koffi UriarteQvnooraxhzDF-XJJE-Sazs [place] Work Phone: 1(294) 173-394810-08-2020 16:01-0400Body Nuecrhknxjy44.6 [degF] Koffi TavarezYmjixvjyrmQF-ZTST-Ubml [place] Work Phone: 1(151) 606-709810-08-2020 16:01-0400Body quxhdg35.28 kgKoffi TavarezCskhuqopvlVA-MUWO-Exyh [place] Work Phone: 1(979) 762-604810-08-2020 16:01-0400BP Cayxjabmp817 mm[Hg]Koffi TavarezYsowhxjebqGT-TVWU-[place]ouq [place] Work Phone: 1(667) 209-262810-08-2020 16:01-0400BP Tuyrpnvh321 mm[Hg]Koffi TavarezDzhylxvrvuHV-VXBU-Nogz [place] Work Phone: 1(709) 759-199510-08-2020 16:01-0400BSA (Body Surface Area)1.99 m2 Koffi TavarezEtvndgqzpaGU-UWNX-Fobh [place] Work Phone: 1(392) 120-196310-08-2020 16:01-1507Vhekoj052.72 cmKoffi Uriarte SB-FOYS-Bdvb [place] Work Phone: 1(700) [phone] 16:01-0400Pulse (Heart Rate)76 /minKoffi TavarezVnqsehlsqaYF-DYCH-Zybg [place] Work Phone: 1(948) 589-940610-08-2020 16:01-0400Respiratory Rate16 /minKoffi TavarezNhurgngrkuCO-LBMT-Twgz [place] Work Phone: 1(179) 222-106310-02-2020 00:00-0400BP Oqzzfsefm45 mm[Hg][facility], YK42-30-8341 00:00-0400BP Tjurajao652 mm[Hg][facility], ZN53-89-0697 22:17-0400BMI (Body Mass Index)28.06 kg/b2BrhsaoxEn[facility], RJ27-23-6026 22:17-0400Body Wbcmhaalgmx32.91 [degF][facility], JJ11-44-6793 22:17-0400Body bdyfsr79.18 kgEncompass Health [facility], LP80-18-7978 22:17-2016Owytub810.3 cmEn[facility] Health [facility] [place], HF78-75-9469 22:17-0400Pulse (Heart Rate)105 /minEn[facility] [place], [place] 04-18-2020 22:17-0400Pulse Nveiizaz41 %[facility] 04-18-2020 22:17-0400Respiratory Rate16 /minEncompass Health [facility] [place] Encounters Encounter DateEncounter TypeCare ProviderFacilityStart: 05-29-2025 End: 55-11-3156Rxfpjg flowsheetCorey April DO Work Phone: [facility] OBGYNStart: 05-29-2025 End: 67-68-5610Vhmvje flowsheetCorey April DO Work Phone: [facility] OBGYNStart: 05-29-2025 End: 00-58-5789wkylulwsmwWQIOH FAZIONot AvailableStart: 05-19-2025 End: 69-04-8393Capumiuxu Result EncounterRoula VILLEDA Work Phone: noMS External Department UnsolicitedStart: 05-19-2025 End: 11-00-7023Hrnmfnrnm Result EncounterRoula VILLEDA Work Phone: noms External Department UnsolicitedStart: 04-30-2025 End: 18-02-6584Pnqjch flowsheetRoula VILLEDA Work Phone: noMS Giselle OBGYNStart: 04-30-2025 End: 44-71-8994Btwxps Tim VILLEDA Work Phone: [facility] OBGYNStart: 04-30-2025 End: 71-85-1314laeczmdpttVRQ MITCHELNot AvailableStart: 04-30-2025 End: 94-95-0982Lrkoonqv flow sheetRoula VILLEDA Work Phone: noms Giselle OBGYNComment on above:Second trimester ([facility]); 24 weeks gestation of ([facility]); Hypertension, unspecified type; Seizure ([facility]); Diabetes mellitus screeningStart: 04-07-2025 End: 46-30-6563Wnojpqejz Result EncounterRoula VILLEDA Work Phone: noms External Department UnsolicitedStart: 04-07-2025 End: 96-21-2098Vgvylzarp Result EncounterRoula VILLEDA Work Phone: noms External Department UnsolicitedStart: 04-04-2025 End: 88-00-1152Oamsqkdj flow sheetCorey April DO Work Phone: N[facility] OBGYNComment on above:20 weeks gestation of ([facility]); Second trimester ([facility])Start: 04-04-2025 End: 67-16-7417zcwavtefvlHCCIQ FAZIONot AvailableStart: 04-04-2025 End: 69-19-3368Fuvncdthb Result EncounterCorey April DO Work Phone: noms External Department UnsolicitedStart: 04-04-2025 End: 87-16-4316Akyxnfbpw Result EncounterCorey April DO Work Phone: noms External Department UnsolicitedStart: 03-14-2025 End: 11-27-4830qbgclyjfiaDCO MITCHELNot AvailableStart: 03-07-2025 End: 99-61-5862Xhrmrch encounter procedureRoula Grullon CHRISTIANA Work Phone: [facility] Work Phone: Start: 03-07-2025 End: 26-13-4531Kzczzpww flow sheetRoula Lerneraayush VILLEDA Work Phone: noms Giselle OBGYNComment on above:Well woman exam with routine gynecological exam; Second trimester ([facility]); 16 weeks gestation of ([facility]); Vaginal discharge; STD exposure; Screening, , for anatomic survey ([facility])Start: 03-07-2025 End: 03-74-4217dgpbvayypgOYT MITCHELNot AvailableStart: 03-07-2025 End: 75-68-5297Simdpg flowsheetRoula Lerneraayush VILLEDA Work Phone: n[facility] OBGYNStart: 03-07-2025 End: 84-18-6419Icemef flowstayaRoula [place] PA Work Phone: noms [facility] OBGYNStart: 03-07-2025 End: 29-59-7831Qhbqbcuhz Result EncounterRoula Grullon CHRISTIANA Work Phone: noms External Department UnsolicitedStart: 03-07-2025 End: 75-90-5328Bmbfxkka Result EncounterRoula Lerneraayush VILLEDA Work Phone: noms External Department UnsolicitedStart: 02-21-2025 End: 54-92-9614wtsgwomqybPVSAT FAZIONot AvailableStart: 02-07-2025 End: 01-33-8102Hepfundq flow sheetCorey April DO Work Phone: NOID [facility] OBGYNComment on above:First trimester ([facility]); 12 weeks gestation of ([facility]); Missed menses; Subchorionic hematoma in second trimester, single or unspecified fetus ([facility]) Start: 02-07-2025 End: 58-82-9080cdvsckzzwwGMJOD FAZIONot AvailableStart: 02-07-2025 End: 13-16-5500Mzzyla flowsheetCorey April DO Work Phone: NOOI BCP OBStart: 02-07-2025 End: 15-67-1893Smgvhg flowsheetCorey April DO Work Phone: NOBS BCP OBStart: 02-01-2025 End: 78-89-0918Oqmtzk Tim VILLEDA Work Phone: NOYF BCP OBStart: 02-01-2025 End: 10-67-2981Purnxf Tim VILLEDA Work Phone: NOCM BCP OBStart: 02-01-2025 End: 43-47-3799Zrgubt outpatient visit 15 minutesAmy Mitchel VILLEDA Work Phone: noms BCP OBComment on above:Nausea and vomiting, unspecified vomiting type (Primary Dx); First trimester ([facility]); 11 weeks gestation of ([facility])Start: 02-01-2025 End: 69-56-9022huowlysavyMBL RAMEYNot AvailableStart: 01-22-2025 End: 12-13-1138Yunkppfpt Result EncounterCorey April DO Work Phone: noms External Department UnsolicitedStart: 01-22-2025 End: 82-71-5963Pxtbrotpt Result EncounterCorey April DO Work Phone: noMS External Department UnsolicitedStart: 01-12-2025 End: 21-74-7590Lfasbg outpatient visit 5 minutesFakya Peterson Nomshaina Bcp ObNOMS BCP OBComment on above:GA: 8s6sZdbbx: 01-12-2025 End: 14-19-6938hhzopolqbhHMC RAMEYNot AvailableStart: 09-12-2024 End: 40-32-1071Yopixw outpatient visit 25 minutesKoffi Uriarte MD Work Phone: [facility] Primary CareComment on above:Benign essential hypertension (Primary Dx); Seizure (Multi); Vitamin B12 deficiency; Fatigue, unspecified type; Well adult health check; Vitamin D deficiencyStart: 09-12-2024 End: 99-39-7332Cnoojgd encounter statusKoffi Uriarte MD Work Phone: [facility] Work Phone: Start: 09-12-2024 End: 66-14-9980wlicslpcheZCLMPGA A [facility] Start: 09-12-2024 End: 09-19-8476Dzwvfscnq for general adult medical examination without abnormal findingsMONSt. [facility]s [facility] AmbulatoryStart: 05-03-2024 End: 26-09-7120Ffhwgz outpatient visit 25 minutesNedra Calderon MD Work Phone: [facility] CenterComment on above:Seizure (Multi) (Primary Dx)Start: 05-03-2024 End: 29-63-8792xalrwdqnvrUWZSAC [facility] AmbulatoryStart: 04-13-2024 End: 44-50-7906jrvlqgkszqNzzwfdd HARWOODFacility:FTMCStart: 03-30-2024 End: 14-77-6941hytmwbygxqRjok T AMESFacility:FTMCStart: 12-15-2023 End: 03-56-4639lzxrbmlzcyZpnf ProviderFacility:[facility]tart: 11-09-2023 End: 30-12-0401dmougbwcohWostgsvxyProMedica [facility] Work Phone: Start: 11-09-2023 End: 27-74-4659Btowrtd encounter procedureLake [facility] Work Phone: Start: 08-04-2023 End: 34-45-7417rxjbzjbvsnSciru FazioFacility:[facility] Start: 08-03-2023 End: 09-67-3895Zrrildvug Result EncounterCorey April DO Work Phone: [facility] External Department UnsolicitedStart: 08-03-2023 End: 21-13-2860Phstghpjn Result EncounterCorey April DO Work Phone: n[facility] External Department UnsolicitedStart: 07-26-2023 End: 55-60-7751Elpjpxmsg Result EncounterCorey April DO Work Phone: noms External Department UnsolicitedStart: 07-26-2023 End: 67-24-6241Xwzyiqmmq Result EncounterCorey April DO Work Phone: noms External Department UnsolicitedStart: 07-20-2023 End: 17-09-7906Deelvvxsh Result EncounterCorey April DO Work Phone: n[facility] External Department UnsolicitedStart: 07-20-2023 End: 68-57-2907Jjihkvdaj Result EncounterCorey April DO Work Phone: noms External Department UnsolicitedStart: 07-11-2023 End: 29-48-9554Edmxgqfkd Result EncounterCorey April DO Work Phone: n[facility] External Department UnsolicitedStart: 07-11-2023 End: 56-24-9753Zlhpbmbal Result EncounterCorey April DO Work Phone: noms External Department UnsolicitedStart: 04-30-2023 End: 10-91-2551Idteyc outpatient visit 15 minutesNedra Calderon MD Work Phone: uh [facility] CenterComment on above:Seizure (CMS/HCC) (Primary Dx)Start: 11-25-2022 End: 39-85-7315xtnzwjummrQX WILLIS APIRL .Facility:A9Wrcbt: 11-16-2022 End: 47-42-5841hkyafhqxluCP WILLIS APRIL .Facility:C1Ozluz: 42-24-4698Rcgjmgr tobacco non-user cad cap copd pv dmMonminesh A Chapito Work Phone: [email or web address] Work Phone: Start: 74-28-8252Kmbejjtz preventive med est patient 18-39 yrsMonique A Chapito Work Phone: [email or web address] Work Phone: Start: 13-45-8201vzozudhoowNt. Koffi Uriarte Facility:[id number]: 04-16-2022 End: 08-70-4371uzehufjrfrYKQMPG K BICANOVSKYFacility:[facility] Start: 96-91-6709Mfwkvdlcn encounterKavita Sweet DO Work Phone: OB/GynecologyComment on above:Bleeding With Start: 03-24-2022 End: 94-77-3243Rnzfgvm encounter Harsh Hassan [facility] Start: 88-44-9178Rjekxqhjb encounterTammy Ryan [place] Work Phone: CB/GynecologyComment on above:AppointmentStart: 28-73-1874VAOMXUlnejkx Alison Uriarte Work Phone: [phone]-Xpmgynydu-Golgi DO Work Phone: Start: 16-57-8384umketsggarDqsl Pattie PA-C Work Phone: OB/GynecologyComment on above:Bacteria VaginosisStart: 77-49-1338ZOKQDSrdnofk Alison Uriarte Work Phone: [email or web address] Work Phone: Start: 72-82-0234Zohwkw outpatient visit 15 minutes Koffi Uriarte Work Phone: [id number]-NzmqbbdxsUniversal [employer] LLC DO Work Phone: Start: 22-30-9860Gxyuna outpatient visit 15 minutes Koffi A Chapito Work Phone: mp-[facility] Work Phone: Start: 81-19-8025KCZWALqkdjuc A Uriarte Work Phone: mp-[facility] Work Phone: Start: 09-09-2021 End: 01-69-6178frfhzcqwliZLDZ GLASENAPPFacility:[facility] Hospitaltart: 07-04-2021 End: 14-46-1325ajxzjpdfpcEHCBI NEMETHFacility:[facility] Hospitaltart: 99-36-7903Bvcpywgyt for gynecological examination (general) (routine) without abnormal findingsTAMMY [facility] CenterStart: 02-94-3379Gxiswz outpatient visit 25 minutesMonique A Chapito Work Phone: [phone]-Rizkowfjc-[facility] Work Phone: Start: 48-00-7288Bnmfa UpdateMonique A Uriarte Work Phone: mp-[facility] Work Phone: Start: 70-55-1299Fgblxx outpatient visit 25 minutes Koffi Alison Uriarte Work Phone: mp-[facility] Work Phone: Start: 29-50-0211Atlhmih encounter procedureMonique A Uriarte Work Phone: mp-[facility] Work Phone: Start: 39-86-1822UYERUWdtfhwh A Uriarte Work Phone: mp-[facility] Work Phone: Start: 88-96-4440Ovehg UpdateMonique A Uriarte Work Phone: mp-[facility] Work Phone: Start: 48-60-4373Muplkj outpatient visit 25 minutes Koffiminesh Uriarte Work Phone: mp-[facility] Work Phone: Start: 30-78-5472Axtqijf encounter procedureMonique CkifsrgmweEP-Dhzpmvmbt-Quxujacz SJW DO Work Phone: Start: 31-58-2653Zvuztjd encounter procedureMonique IkeufdstiuHL-Gpxaywsqt-[place] SJ DO Work Phone: Start: 79-71-0575Jwkxofe encounter procedureMonique OorfschyeeXN-CUCH[place] Work Phone: Start: 05-09-2020 End: 52-26-4123Tbnlvys encounter procedureDAEastern New Mexico Medical Centertart: 05-09-2020 End: 59-25-3778Lispfllkfp hospital visit by physicianLorain Neuro 1EEGComment on above:ArrivedNonintractable generalized idiopathic epilepsy without status epilepticus (HCC)Start: 17-27-7954Gldzkcm encounter procedureMonique Chapito HC-KKOO[place] Work Phone: Start: 04-19-2020 End: 15-99-9309Xbtzaomhx department patient visitMICAMANDO Renteria [facility] Centertart: 04-18-2020 End: 51-94-8662Hknmsklgy department patient visitMicdaquan [place] Work Phone: [facility] EDComment on above:Seizure (HCC) (Primary Dx)Start: 46-24-3749Oawlruf encounter procedureMonique Chapito XW-VYCC-[place] Work Phone: Start: 93-89-2329WzcsepvzqwHxcnhty A Richardson [facility] CityPatient encounter statusKoffi Uriarte Work Phone: mp-[facility] Work Phone: Procedures DateProcedureProcedure DetailPerforming ClinicianStart: 21-64-7106JER CBC WITH AUTO DIFFAmy Mitchel VILLEDA Work Phone: Start: 33-57-7487Nczdx dip stick/tablet rgnt non-auto w/o micrscpAmy Mitchel VILLEDA Work Phone: Start: 74-17-7049LPN, SERUM, OPEN SPINA BIFIDAAmy Mitchel VILLEDA Work Phone: Start: 85-22-2779Yfmju dip stick/tablet rgnt non-auto w/o micrscpCorey April DO Work Phone: Start: 27-24-2780DA OB ANATOMYCorey April DO Work Phone: Start: 92-50-6824BP OB CERVICAL LENGTHCorey April DO Work Phone: Start: 37-97-1243UIIYSTVYC VAGINITIS (HTRX)Roula VILLEDA Work Phone: Start: 68-55-1562Yqwkh dip stick/tablet rgnt non-auto w/o micrscpAmy Mitchel VILLEDA Work Phone: Start: 13-57-7743YLL,APTIMA HPV,AGE GDLNAmy Mitchel VILLEDA Work Phone: Start: 52-21-4440Yaawpdhwrrj observation [Identifier] in Cervix by Cyto stainCorey April DO Work Phone: Start: 36-87-0064Cocne dip stick/tablet rgnt non-auto w/o micrscpCorey April DO Work Phone: Start: 13-03-1741XVL TESTCorey April DO Work Phone: Start: 01-12-2025 End: 25-43-2127Ikgyf dip stick/tablet rgnt non-auto w/o micrscpCorey April DO Work Phone: Start: 356978-sxarvklvwganco D3 [Mass/volume] in Serum or PlasmaKoffi Uriarte MD Work Phone: Start: 77-20-3519Wkvyjaymx (Vitamin B12) [Mass/volume] in Serum or PlasmaMonique Alison Uriarte MD Work Phone: Start: 47-60-1537Vvqfvgtb blood countMonique Alison Uriarte MD Work Phone: Start: 73-68-4936Evrbytmnynyrc metabolic panelMonique Alison Uriarte MD Work Phone: Start: 35-80-8227Yrisr panelMonique Alison Uriarte MD Work Phone: Start: 67-43-9692CJS WITH REFLEX TO FREE T4 IF ABNORMALMonique Alison Uriarte MD Work Phone: Start: 25-28-7671Tooly 1996 panel - Serum or Plasma Koffi Chapito REINOSO Work Phone: Start: 37-50-5401RZ OB BPP W NON-STRESSCorey April DO Work Phone: Start: 47-36-3747VK OB BPP W NON-STRESSCorey April DO Work Phone: Start: 86-44-4732OY OB BPP W NON-STRESSCorey April DO Work Phone: Start: 78-97-9443DX OB GROWTHCorey April DO Work Phone: Start: 64-49-4091NS OB BPP W NON-STRESSCorey April DO Work Phone: Start: 94-49-5963Sbkvgjkwcag observation [Identifier] in Cervix by Cyto stainNedra Calderon MD Work Phone: Start: 57-60-0963Acuxcjnojtk observation [Identifier] in Cervix by Cyto stainCorey April DO Work Phone: Start: 04-39-8473Tcufrbkljub [Units/volume] in Serum or PlasmaNedra Calderon MD Work Phone: Start: 87-01-5996KYI W Auto Differential panel - Blood Koffi UriarteStart: 89-34-2990Ydbtzryddvqaa metabolic 2000 panelMonique [place] CityStart: 50-40-4426Exeriqkxgffg drug not elsewhere specifiedMonique [place] CityStart: 67-05-4277Vizmcaecghb observation [Identifier] in Cervix by Cyto Valente Calderon MD Work Phone: Start: 40-65-0031TkvuzyypwfletespeowqTUOSNOU MAHAJAN Start: 85-50-4713VLHGITHPK REPORTDALUIS RADHAStart: 91-77-5993LOWQBETBZ REPORTHpf ScanningStart: 47-18-8832Rqw brain brain stem w/o w/contrast material SPIKE RADHAStart: 03-56-4431Bxjpldundtutlprumxfa w/rec awake&drowsyDAWELLSPAN [facility] RADHAStart: 18-36-1603Eph brain brain stem w/o w/contrast materialDaluis Radha Work Phone: Start: 77-39-8922Pkuidauwrtfkxohkeusy w/rec awake&drowsyDaluis Radha Work Phone: Start: 07-22-2054Gfhpu of lactateMICHELE RALOFSKY Start: 98-41-1079Ztjga of prolactinMICHELE RALOFSKYStart: 55-56-0254Zg head/brain w/o contrast materialMICHELE RALOFSKYStart: 00-56-5486Ybdvzwemiy microscopic onlyMICHELE RALOFSKYStart: 43-60-0418Nzubq dip stick/tablet rgnt auto w/o microscopyMICHELE RALOFSKYStart: 13-90-8366Qjiej count complete auto&auto difrntl wbcMICHELE RALOFSKYStart: 12-83-7338Sfjvnkoamdhse metabolic panelMICHELE RALOFSKYStart: 48-83-5361Biuyspdksrio chorionic qualitativeMICHELE RALOFSKYStart: 69-75-1672CXQQ NPO, NOWMICHELE RALOFSKYStart: 22-36-2089UTWSPDC PRECAUTIONSMICHELE RALOFSKYStart: 27-98-1239OGKXUR LOCK IVMICHELE RALOFSKYStart: 66-37-4561Amcxo of lactateMichael S Denbo Work Phone: Start: 45-90-2662Chajdjftsd microscopic onlyMichael S Denbo Work Phone: Start: 69-16-0664Pdryc dip stick/tablet rgnt auto w/o microscopyMichael S Denbo Work Phone: Start: 73-49-5515Eufdf count complete auto&auto difrntl wbcMichael S Denbo Work Phone: Start: 24-02-2721Brevnbrcxedyc metabolic panelMichael S Denbo Work Phone: Start: 99-96-6161Gayvklkropta chorionic qualitative Tu S Denbo Work Phone: History of No history of surgeryMonique ChapitoNo history of surgeryMonique A Uriarte Work Phone: Plan of Treatment DateCare ActivityDetailAuthorStart: 75-03-5207Joqada Vaccines (1 of 2)Zoster Vaccines (1 of 2)[facility]: 53-31-3655WXlM/Tdap/Td Vaccines (9 - Td or Tdap)DTaP/Tdap/Td Vaccines (9 - Td or Tdap)[facility]: 95-78-7562Vpked panelLipid PanelUnNewark Hospital: 09-58-3386Wuttkgrpy for malignant neoplasm of cervixNOMS HealthcareStart: 23-16-6618EHpW/Tdap/Td Vaccines (8 - Td or Tdap) DTaP/Tdap/Td Vaccines (8 - Td or Tdap)[facility]onStsanta cruz: 34-50-5396Ctlpgjztj for malignant neoplasm of cervixUnNewark Hospital: 37-29-6845Zewxdvivt for malignant neoplasm of cervixNOMS HealthcareStart: 05-29-2025 End: 48-22-2816Jgmjyne encounter procedureNOMS Giselle OBGYNComment on above: ArrivedStart: 05-07-2025 End: 12-27-8760Rdsnvlk encounter /20/2025 2:00 PM EDT Office Visit [address] [place] [phone] [place] [address] [place] [address] [facility]Start: 04-30-2025 End: 77-02-9843EYX panel - Blood by Automated countCBC Lab Routine Diabetes mellitus screening Expected: 04/30/2025 (Approximate), Expires: 04/30/2026[facility] Work Phone: comment on above:Expected: 04/30/2025 (Approximate), Expires: 04/30/2026Start: 04-30-2025 End: 54-45-0173Vpmbpdvkaqw of glucose 1 hour after glucose challenge for glucose tolerance testGlucose tolerance, 1 hour Lab Routine Diabetes mellitus screening Expected: 04/30/2025 (Approximate), Expires: 04/30/2026[facility] HealthcareComment on above:Expected: 04/30/2025 (Approximate), Expires: 04/30/2026Start: 04-30-2025 End: 09-77-1717Qokkqln encounter yipogtewl13/13/2025 9:50 AM EDT Routine [facility] Giselle LAYTON [address] [place], [id number] Roula Grullon PA [address] [place] [address] [facility] Giselle OBGYNStart: 04-04-2025 End: 81-85-4008Tkesymu encounter bqzzatvbd98/17/2025 3:10 PM EDT Routine [facility] Giselle WOODGYN [address] [place], [id number] Willis Chen DO [address] [place] [address] NOMShaina [place] OBGYNStart: 97-89-8117PIEVK- 19 Vaccine ( season)COVID-19 Vaccine ( season)[facility]OMS HealthcareStart: 00-77-2041Xuiaacoat vaccinationInfluenza Vaccine (#1)[facility] HealthcareStart: 03-14-2025 End: 92-09-3952Ylhffilzewxq / ancillary services xucbyiscqs58/27/2025 3:00 PM EDT Ancillary Procedure [facility]BG[facility] [address] [place] [address] QBSS Knapp OBGYNStart: 03-07-2025 End: 43-00-7000Fuxffgl encounter procedureNOMS Knapp OBGYNComment on above: ArrivedStart: 03-07-2025 End: 47-07-4888Tuwtm fetoprotein, maternalAlpha fetoprotein, maternal Lab Routine Second trimester ([facility]) 16 weeks gestation of ([facility]) Expected: 03/07/2025 (Approximate), Expires: 09/07/2025[facility] Comment on above:Expected: 03/07/2025 (Approximate), Expires: 09/07/2025Start: 03-07-2025 End: 40-29-2261GM for pregnancyUS OB 14+ weeks anatomy scan Imaging Routine Screening, , for anatomic survey ([facility]) Expected: 03/07/2025, Expires: 06/07/2025[facility] HealthcareComment on above:Expected: 03/07/2025, Expires: 06/07/2025Start: 02-21-2025 End: 85-98-9267Rvhdztebasoy / ancillary services ngvuepqybq28/06/2025 3:00 PM EDT Ancillary Procedure [facility] [address] [place] [address] WUFZ Giselle OBGYNStart: 02-12-2025 End: 25-26-6654Kxjzvuu encounter cbtgrrqme22/28/2025 2:20 PM EDT Office Visit [facility] [address] [place] [phone] [place] [address] [place] [address] [facility] Primary CareStart: 02-07-2025 End: 41-29-9986Ysvpvtd encounter procedureNOSAINT FRANCIS MEMORIAL [facility] OBComment on above:Arrived Start: 02-07-2025 End: 38-02-9379RP for pregnancyUS OB less than 14 weeks early Imaging Routine Missed menses Subchorionic hematoma in second trimester, single or unspecified fetus ([facility]-HCC) Expected: 02/07/2025, Expires: 05/10/2025[facility] Work Phone: comment on above:Expected: 02/07/2025, Expires: 05/10/2025Start: 02-01-2025 End: 84-96-0646Bjuowlu encounter erxahvvxw35/17/2025 9:20 AM EDT Office Visit [facility]CP OB [address] [place] [address] Roula Grullon PA [address] [place] [address] [facility]rivedENCINO [facility] OBComment on above:ArrivedStart: 01-12-2025 End: 22-85-0525YPT/RhABO/Rh Lab Routine Missed menses , unspecified gestational age ([facility]) Expected: 01/12/2025 (Approximate), Expires: 01/12/2026[facility] HealthcareComment on above:Expected: 01/12/2025 (Approximate), Expires: 01/12/2026Start: 01-12-2025 End: 30-06-6651Fxxrt type and Indirect antibody screen panel - BloodType and screen Lab Routine Missed menses , unspecified gestational age ([facility]- HCC) Expected: 01/12/2025 (Approximate), Expires: 01/12/2026[facility] Work Phone: comment on above:Expected: 01/12/2025 (Approximate), Expires: 01/12/2026Start: 01-12-2025 End: 54-30-9281Ccwrz of abuse panel - Urine by Screen methodRapid drug screen, urine Lab Routine , unspecified gestational age ([facility]) Encounter for supervision of normal first in first trimester ([facility]) Expected: 01/12/2025 (Approximate), Expires: 01/12/2026[facility] HealthcareComment on above: Expected: 01/12/2025 (Approximate), Expires: 01/12/2026Start: 05-03-2024 End: 36-42-5219lqyyIRThcii [Mass/volume] in Serum or PlasmaLamotrigine level Lab Routine Seizure (Multi) Expected: 05/03/2024 (Approximate), Expires: 05/03/2025 [facility] Service Area Work Phone: comment on above:Expected: 05/03/2024 (Approximate), Expires: 05/03/2025Start: 50-95-3988UARVH-19 Vaccine ( season)COVID- 19 Vaccine ( season)[facility]: 14-39-9523LIVSN-19 Vaccine ( season)COVID-19 Vaccine ( season)[facility]: 90-33-2027Fvblcvwyh vaccination Influenza Vaccine (#1)[facility]: 10-02-2023 Screening for malignant neoplasm of cervixHPV/CotestNOMS HealthcareStart: 24-02-2816MFURYZOX, Provider: Koffi Uriarte, Status: Pen, Time: 9:00 AM PHYSICAL, Provider: Koffi Uriarte, Status: Pen, Time: 9:00 BJJU-UMWB-[place] Work Phone: Start: 08-02-2023 End: 82-12-2459Ajarzxn encounter libzncnsc44/15/2024 9:00 AM EST Office Visit [facility] [address] [place] [phone] [place] [address] [place] [address] [facility] CenterStart: 11-81-7558BSZ TESTINGPAP TESTINGCincinnati VA Medical Centertart: 74-67-2362Jfdmjhizg for malignant neoplasm of cervixSt. Charles Hospital: 12-24-2022 VIRFUVHOME, Provider: Nedra Calderon, Status: Pen, Time: 10:00 AMVIRFUVHOME, Provider: Nedra Calderon, Status: Pen, Time: 10:00 YKJY-Zwgyervzv-Wauumyya Wickr DO Work Phone: Start: 38-37-3519EQPGAKEY, Provider: Kfofi Uriarte, Status: Pen, Time: 9:50 AMPHYSICAL, Provider: Koffi Uriarte, Status: Pen, Time: 9:50 XBEK-ZIKJ-[place] Work Phone: Start: 03-24-2022 End: 91-30-4974Bxgxkebfdivomwoaxg.beta subunit [Units/volume] in Serum or Plasma HCG QUANTITATIVE Lab Routine Bleeding in early Expected: 03/24/2022, Expires: 05/24/2022[facility] Work Phone: Comment on above:Expected: 03/24/2022, Expires: 05/24/2022tart: 46-19-6155Ocfdhxtke vaccinationINFLUENZA (#1)[facility] Start: 89-38-9163Qwwkxxy stimulating hormone measurementBrookhaven Hospital – TulsaStart: 64-03-8518TOJUJVICBR, Provider: Nedra Calderon, Status: Pen, Time: 11:30 AMFUVGENERAL, Provider: Nedra Calderon, Status: Pen, Time: 11:30 PIBL-Uypbpxdhb-Jsoqsmsa SJW DO Work Phone: Start: 09-07-2914LOG, Provider: Koffi Uriarte, Status: Pen, Time: 1:00 PMFUV, Provider: Koffi Uriarte, Status: Pen, Time: 1:00 CBKS-KGGG-[place] Work Phone: Start: 25-29-2218QHDHY-19 VACCINE (3 - Booster for Pfizer series)COVID-19 VACCINE (3 - Booster for Pfizer series)[facility] Start: 76-25-7519OYVSAAVSWN, Provider: Nedra Calderon, Status: Pen, Time: 2:00 PMFUVGENERAL, Provider: Nedra Calderon, Status: Pen, Time: 2:00 NWLE-GLIH-[place] Work Phone: Start: 69-23-7692MZAPFNKGRV, Provider: Nedra Calderon, Status: Pen, Time: 11:00 AMFUVGENERAL, Provider: Nedra Calderon, Status: Pen, Time: 11:00 OSEP-IEAW-[place] Work Phone: Start: 07-64-2414IBV, Provider: Koffi Uriarte, Status: Pen, Time: 3:40 PMFUV, Provider: Koffi Uriarte, Status: Pen, Time: 3:40 CKWJ-HCRG-[place] Work Phone: Start: 79-46-1146OVU, Provider: Koffi Uriarte, Status: Pen, Time: 2:00 PMFUV, Provider: Koffi Uriarte, Status: Pen, Time: 2:00 VHTD-QKCW-[place] Work Phone: Start: 58-77-3196OBDGJ-19 Vaccine (3 - Pfizer series) COVID-19 Vaccine (3 - Pfizer series)[facility]onStart: 69-77-3706BFO Vaccines (1 - 3-dose SCDM series)HPV Vaccines (1 - 3-dose SCDM series)[facility] HospitalStart: 56-43-4856Ekvzpbytb vaccinationFlu vaccine (#1) [facility]: 01-39-2420XUvS/Tdap/Td vaccine (7 - Td)DTaP/Tdap/Td vaccine (7 - Td)[facility]: 37-66-0815Bovff microalbumin profile DTAP,TDAP,TD (7 - Td or Tdap)[facility] Centertart: 50-84-8473Xklgeyhqb for malignant neoplasm of cervixUnMount St. Mary HospitalStsanta cruz: 2012 Hepatitis B Vaccines (1 of 3 - 19+ 3-dose series)Hepatitis B Vaccines (1 of 3 - 19+ 3-dose series)[facility] HospitalStart: 22-71-1520MDFVIFGAR C SCREENINGHEPATITIS C SCREENINGCincinnati VA Medical Centertart: 26-74-3128Tmuyaifhy C screeningHepatitis C ScreeningSt. Charles Hospital: 79-57-1438UBU SCREENINGHIV SCREENINGCincinnati VA Medical Centertart: 55-56-0805URX screeningHIV screenMemorial Health System [facility]: 38-15-6080Nqgwtmd of varicella vaccinationVaricella Vaccines (1 of 2 - 13+ 2-dose series)[facility] HospitalStart: 67-62-0871Krpyeijlx vaccination Varicella Vaccines (1 of 2 - 13+ 2-dose series)[facility] Start: 79-33-8133Orvdh depression screening assessmentDEPRESSION SCREENING [facility] Centertart: 98-46-1925AOM vaccine (1 - 2-dose series)HPV vaccine (1 - 2-dose series)[facility]: 44-05-7912YEhR/Tdap/Td Vaccines (1 - Tdap)DTaP/Tdap/Td Vaccines (1 - Tdap)[facility] HospitalStsanta cruz: 48-40-0002Brohlpqgv vaccinationVaricella Vaccines (1 of 2 - 2-dose childhood series)[facility]: 13-11-9448IVO Vaccines (1 of 1 - Standard series) MMR Vaccines (1 of 1 - Standard series)[facility] HospitalStart: 67-27-2196Otshroooj vaccine (1 of 2 - 2-dose childhood series)Varicella vaccine (1 of 2 - 2-dose childhood series)[facility]: 05-50-5693RIG screeningHIV Screening [facility]: 70-50-9390Fpdoe panelLipid Panel [facility]: 36-23-7478Whwsqn Adult PhysicalYearly Adult PhysicalUnMount St. Mary HospitalBacteria identified in Urine by CultureUrine culture Microbiology Routine Missed menses Ordered: 01/12/2025[facility] HealthcareComment on above:Ordered: 01/12/2025BC W Auto Differential panel - BloodCBC and differential Lab Routine Missed menses , unspecified gestational age ([facility]) Ordered: 01/12/2025[facility] HealthcareComment on above: Ordered: 01/12/2025HLAMYDIA TRACHOMATIS (GENITO/STI)CHLAMYDIA TRACHOMATIS (GENITO/STI) Lab Routine STD exposure Ordered: 03/07/2025[facility] HealthcareComment on above:Ordered: 03/07/2025 End: 75-47-8487GQ Head WO ContrastCT Head WO Contrast Imaging STAT Once for 1 Occurrences starting 04/18/2020 until 04/18/2020[facility] [place]Comment on above:Once for 1 Occurrences starting 04/18/2020 until 04/18/2020CT Head WO ContrastCT Head WO Contrast Imaging STAT 04/18/2020 11:15 PM [facility]Prem[facility], KYCytology Cervical or vaginal smear or scraping studyPap Smear Pathology and Cytology Routine Well woman exam with routine gynecological exam Ordered: [facility] HealthcareComment on above:Ordered: 03/07/2025Hemoglobin A1c/Hemoglobin.total in BloodHemoglobin A1c Lab Routine Missed menses , unspecified gestational age ([facility]) Ordered: 01/12/2025[facility] HealthcareComment on above:Ordered: 01/12/2025Hepatitis B virus surface Ag [Presence] in Serum or Plasma by ImmunoassayHepatitis B surface antigen Lab Routine Missed menses , unspecified gestational age ([facility]) Ordered: 01/12/2025[facility] HealthcareComment on above:Ordered: 01/12/2025Hepatitis C virus Ab [Presence] in Serum or Plasma by ImmunoassayHepatitis C antibody Lab Routine Missed menses , unspecified gestational age ([facility]) Ordered: 01/12/2025[facility] HealthcareComment on above:Ordered: 01/12/2025HIV-1/HIV-2 antigen/antibody combination immunoassayHIV-1 and HIV-2 antibodies Lab Routine Missed menses , unspecified gestational age ([facility]) Ordered: 01/12/2025[facility] HealthcareComment on above:Ordered: 01/12/2025Human papilloma virus DNA [Presence] in Unspecified specimen by Probe with amplificationHPV DNA probe, amplified Microbiology Routine Well woman exam with routine gynecological exam Ordered: 03/07/2025[facility] HealthcareComment on above:Ordered: 03/07/2025Neisseria gonorrhoeae DNA [Presence] in Unspecified specimen by HUMERA with probe detection Neisseria gonorrhea DNA probe, direct Lab Routine STD exposure Ordered: 03/07/2025[facility] HealthcareComment on above:Ordered: 03/07/2025 End: 31-37-7338LknoaqzceIivsobnyi Lab STAT One Time for 1 Occurrences starting 04/18/2020 until 04/18/2020MerCinc[facility], [place]Comment on above:One Time for 1 Occurrences starting 04/18/2020 until 04/18/2020ProlactinProlactin Lab STAT 04/18/2020 11:17 PM [facility], KYReagin Ab [Presence] in Serum by RPR RPR Lab Routine Missed menses , unspecified gestational age ([facility]) Ordered: 01/12/2025[facility] HealthcareComment on above:Ordered: 01/12/2025Rubella antibody, IgGRubella antibody, IgG Lab Routine Missed menses , unspecified gestational age ([facility]) Ordered: 01/12/2025[facility] HealthcareComment on above:Ordered: 01/12/2025SURESWAB(R) ADVANCED VAGINITIS PLUS, TMASURESWAB(R) ADVANCED VAGINITIS PLUS, TMA Pathology and Cytology Routine Vaginal discharge Ordered: 03/07/2025[facility] Work Phone: comment on above:Ordered: 03/07/20255385TF-ONOB-[place] Work Phone: cleveland ClinicNEGATED: Highlighted row has been ruled out!Planned Goals not ybkrnhvyddJW-DFUI-[place] Work Phone: Immunizations Immunization DateImmunizationNotesCare OfjtatylFtrkoocs87-72-2495ivcwuvanj B vaccine, adult dosageKoffi Uriarte MD Work Phone: [facility] Work Phone: [phone] toxoid, reduced diphtheria toxoid, and acellular pertussis vaccine, adsorbedKoffi Uriarte MD Work Phone: [facility] Work Phone: [phone], injectable, quadrivalent, preservative freeMonique Chapito REINOSO Work Phone: [facility]10-05-2023influenza virus vaccine, unspecified formulationNedra Calderon MD Work Phone: [facility] Work Phone: [phone], injectable, quadrivalent, preservative freeMonique A Chapito Work Phone: mp-WSPCNeedish Work Phone: [phone], injectable, quadrivalent, preservative freeMonique A Uriarte Work Phone: mp-[facility]SPCNeedish Work Phone: [phone]-DusXDkll COVID-19 Vacc 30 MCG/0.3ML Intramuscular SuspensionMonique A Chapito Work Phone: mp-[employer] Work Phone: [phone]-XecRKvqq COVID-19 Vacc 30 MCG/0.3ML Intramuscular SuspensionMonique A Chapito Work Phone: mp-WSPCComr.seLake Junaluska Work Phone: [phone], injectable, Madin Claudia Canine Kidney, preservative free, quadrivalentMonique A Chapito Work Phone: mp-[facility] Work Phone: [phone], injectable, quadrivalent, contains preservativeMonique A Chapito Work Phone: [facility] Work Phone: [phone] toxoid, reduced diphtheria toxoid, and acellular pertussis vaccine, adsorbedMonique A Uriarte Work Phone: mp-[place]SPCConnectivityL[place] Work Phone: [phone], injectable, quadrivalent, preservative freeMiss[facility] Alison ClementeUriarte Work Phone: mp-[place]SPCConnectivityL[place] Work Phone: [phone] polysaccharide vaccine, 23 valentMonunc health lenoir A Uriarte Work Phone: mp-WSPCSlingLake [place] Work Phone: [phone]qptbuki skin test; purified protein derivative solution, intradermalEncompass [facility] [place], [place] 01-61-5434vwpldetitz skin test; purified protein derivative solution, intradermalEn[facility] Health [facility] [place], CC52-23-5822gsyyibb toxoid, reduced diphtheria toxoid, and acellular pertussis vaccine, adsorbedParma Community General Hospital08-10-2007meningococcal polysaccharide (groups A, C, Y and W-135) diphtheria toxoid conjugate vaccine (MCV4P)[facility], OE83-27-3341Dixisaxmvleos, MCV4, unspecified conjugate formulation(groups A, C, Y and W-135)[facility] 15-29-7852iozhfownhu, tetanus toxoids and acellular pertussis vaccineParma Community General Hospital08-25-1999diphtheria, tetanus toxoids and acellular pertussis vaccine, unspecified formulationSentara [facility]em[facility] Uriarte Work Phone: mp-WSPCConnectivityLake [place] Work Phone: [phone]jkhnkznp influenzae type b vaccine, HbOC conjugateParma Community General Hospital08-25-1999measles, mumps and rubella virus vaccineParma Community General Hospital08-25-1999poliovirus vaccine, inactivatedEncompass Health [facility] of [place], CE50-55-5622eoxatlyfv poliovirus vaccine, live, oralEncompass Health Rehabilitation [facility] of [place], TS05-50-3162jbxjnfwwuw, tetanus toxoids and acellular pertussis vaccineParma Community General Hospital06-22-1995diphtheria, tetanus toxoids and acellular pertussis vaccine, unspecified formulationMiss[facility] A Chapito Work Phone: mp-WSPC-[place] Work Phone: [phone]clfksmj influenzae type b vaccine, conjugate unspecified formulationEncompass Health Rehabilitation [facility] [place], [place] 32-01-6509gatmwrhhvzd influenzae type b vaccine, PRP-OMP conjugateMissouri [facility] Medical Center A Uriarte Work Phone: mp-WSP[place] Work Phone: [phone], unspecifiedEncompass Health [facility] [place], BW32-30-4316sdlbxxi, mumps and rubella virus vaccineParma Community General Hospital04-06-1995poliovirus vaccine, inactivatedParma Community General Hospital12-01-1994hepatitis B vaccine, pediatric or pediatric/adolescent dosageMissouri Baptist Medical Center A Uriarte Work Phone: cMercy Health Urbana HospitalZhuuko68-13-6784yhnuzxizq B vaccine, unspecified formulationEn[facility] Health [facility] [place], BM39-30-6310 diphtheria, tetanus toxoids and acellular pertussis vaccineSt. Christopher's Hospital for Children, XG52-47-5250fppyzuzipm, tetanus toxoids and pertussis vaccine [facility]09-29-1994haemophilus influenzae type b vaccine, conjugate unspecified formulationEncompass Health [facility] [place], YD05-70-7512nopwgpvzcav influenzae type b vaccine, HbOC conjugateSara Glassilvia PA-C Work Phone: [facility] HospitalEdrxnr68-41-1130lqklhhhqzuh influenzae type b vaccine, PRP-OMP conjugateMissouri [facility] Medical Center A Uriarte Work Phone: mp-WSPCSlingLake [place] Work Phone: [phone], unspecifiedEncompass Health Rehabilitation [facility] of [place], TS65-20-1649pziqtzsnij vaccine, inactivatedMicWVUMedicine Barnesville Hospital09-29-1994trivalent poliovirus vaccine, live, oralEncompass Health Rehabilitation [facility] of [place], VR77-07-3724bytakornpt, tetanus toxoids and acellular pertussis vaccineEncompass Health [facility] [place], RA01-71-5982 diphtheria, tetanus toxoids and pertussis vaccineParma Community General Hospital07-28-1994haemophilus influenzae type b vaccine, conjugate unspecified formulationEncompass Health [facility] [place], JW39-31-1186ltladtrfmry influenzae type b vaccine, HbOC conjugateSara Glasenapp PA-C Work Phone: [facility] HospitalMyanxu54-83-9833gauoieaqbnj influenzae type b vaccine, PRP-OMP conjugateMonique A Uriarte Work Phone: mp-[employer] Work Phone: [phone], unspecifiedEncompass Health Rehabilitation [facility] of [place], BI73-37-6755ahewfvnwfq vaccine, inactivatedGreene Memorial Hospital07-28-1994trivalent poliovirus vaccine, live, oralEn[facility] Health [facility] [place], QU42-70-3470agnnlobqy B vaccine, pediatric or pediatric/adolescent dosageMonique A Uriarte Work Phone: cMercy Health Urbana HospitalBhnbpw92-02-5959enhcpkwqm B vaccine, unspecified formulationEncompass Health [facility] [place], GY86-65-7710 diphtheria, tetanus toxoids and acellular pertussis vaccineSt. Christopher's Hospital for Children IG30-43-1007bqwfxilkqw, tetanus toxoids and pertussis vaccine [facility]05-19-1994haemophilus influenzae type b vaccine, conjugate unspecified formulationEncompass Health [facility] [place], UA94-08-3013bevrbptmgvp influenzae type b vaccine, HbOC conjugateSara Glasenapp PA-C Work Phone: [facility] HospitalYkldys33-99-5375ibrzzpjkbib influenzae type b vaccine, PRP-OMP conjugateMonique A Uriarte Work Phone: mp-[employer] Work Phone: [phone]twskxu B vaccine, pediatric or pediatric/adolescent dosageMonminesh Uriarte Work Phone: cMercy Health Urbana HospitalNzvoql75-94-1230uvqozdiqn B vaccine, unspecified formulationEn[facility] [place], BM90-41-6521Fkj, unspecifiedEn[facility] [place], ED32-87-5808ppnfpusncz vaccine, inactivatedMicKindred Hospital [place]05-19-1994trivalent poliovirus vaccine, live, oralMicBryn Mawr Rehabilitation [facility], [place] Payers DatePayer CategoryPayerPolicy [id number] Health [facility] [id number] 45-48-2451Ovam-bnl74-59-5958Phlbcbj Care (Private) [id number] Health [id number] Health Insurance [id number] UnknownMMO MMO SUPERMED PLUS [id number] 2020-Present [phone] [address] [place] [address] [id number] [id number]0-0735Aiaoroc792920393699-98-2201 [id number] 2.16.840.1.624846.3.579.[id number] 2.16.840.1.159059.3.57[id number] 2..840.1.453133.3.579.2.12222-97-8498Ypsijdh4772710 2.840.1.618444.3.579.2.14599-18-8061Bmgmujw0371454 2.840.1.445292.3.579.2.92583-16-7534Mnkugev602919907 2.840.1.576493.3.579.2.35938-17-5190Azockaf81078124 2.840.1.507988.3.579.2.0[id number] 2.840.1.528500.3.579.2.75[id number] 2.840.1.596162.3.579.2.[id number] 2.840.1.269819.3.579.2.627199-23-5548Hbzyigf62669585 2.840.1.280691.3.579.2.702425-22-3953Vznswvf27820756 2.840.1.250719.3.579.2.194562-36-5908Alwwolb10244376 2.840.1.095955.3.579.2.203871-38-0462Wctylxj93908345 2.840.1.945599.3.579.2.947662-90-5077Mbscgld87442082 2.16.840.1.544710.3.579.2.841983-55-4257Zhmpaeu18183302 2.16.840.1.832588.3.579.[id number] 2.16.840.1.086800.3.579.2.[id number] 2.16.840.1.720751.3.579.2.224410-22-9097Ghjutkc33726375 2.16.840.1.494283.3.579.2.208632-05-1230Fywntva94356472 2.16.840.1.908783.3.579.2.257056-56-2869Xjwirsk840883095200 1.2.840.748516.1.13.239.2.7.3.038967.621KuhefhiYXA110A64483Olbxkxb16920754 2.16.840.1.013182.3.579.2.316TdvobwbJ4763757773 8x83dk3a-1y7e-06bx-47c8-v06d20uxlf24 Social History DateTypeDetailFacilityStart: 04-18-2020 End: 51-89-3073Obyqvwi smoking status NHISNever smokerCincinnati VA Medical Centertart: 04-18-2020 End: 90-93-9229Asqnqyc use and exposureNever usedMemorial Health System [facility]: 04-18-2020 End: 05-09-5418Xlgvdhd intakeCurrent drinker of alcohol (finding)[facility]: 27-79-4211Cxkgwnu SDOH Evepnfwet1WlpvbMemorial Health System [facility] Hospital: 22-79-7070Pbkfpem SDOH Food Swrxj0LygqyMemorial Health System Selby [facility] Hospital: 90-83-3957Trrtwix SDOH Transport Rbl6BspwdMemorial Health System Selby [facility] Hospital: 87-08-1375Hefhoah Comment occasionallyMemorial Health System [facility] Hospital: 17-27-7408Ocm Assigned At BirthNot on [place], [place]Start: 04-20-2023 End: 71-53-3944Gxqhqazs to SARS-CoV-2 (event)Not [facility] Hospitalart: 05-03-2024 End: 48-49-9703Mvlpo smokerNever samtvyQI-OGMA-Ffzg [place] Work Phone: Start: 67-54-4249Rhhizrp smoking statusNeverMiddletown Hospitaltart: 05-03-2024 End: 46-87-8212Nht Assigned At [facility] Hospitaltart: 80-17-3825Epv Assigned At [facility] Hospitaltart: 94-22-2199Ovqznofsg beverage intakeEx-drinker (finding)[facility] Work Phone: How often to you have a drink containing alcohol?Never [facility] Work Phone: Start: 04-23-2024 End: 44-59-1942Ckhkngll to SARS-CoV-2 (event)YesSelect Medical [facility] Rehabilitation Hospital, AvonStart: 71-16-7486Yiybihp CommentSociallySelect Medical [place] [facility] [place] Work Phone: Tobacco smoking status NHISTobacco smoking consumption unknownNOND HealthcareStart: 16-98-3388AzictjjmyPODL HealthcareStart: 86-36-9874Nghcyr identityIdentifies as female gender (finding)[facility] Start: 67-88-0992Txbytl orientationHeterosexual (finding)[facility] HealthcareNEGATED: Highlighted row--OT-BGOR-YbgtMeetCast Work Phone: NEGATED: Highlighted rowStart: NINFHistory of tobacco usePassive smokerSelect [facility] [place] [facility] [place] Work Phone: Goals DatePatient GoalDesired Activity/StatePersonal health goal Functional Status DateAssessmentResultFacilityNEGATED: Highlighted rowFunctional performance Functional status health issues are not documented KxttklmFE-XUMC-Dphs [place] Work Phone: Mental Status DateAssessmentResultFacilityNEGATED: Highlighted rowCognitive function [Interpretation]Cognitive status health issues are not documented Disease MK-VPVQ-[place] Work Phone: Clinical Notes 08-09-2017 to 04-30-2025 Note Date & IczrLzxtVtfuoblr72-79-3258 History of Present illness Narrative* CHRISTIANA Mills [...] Problems Diagnosis Date Noted Hypertension 01/14/2023 Seizure ([facility]) 07/09/2021 Breech presentation, no version ([facility] 07/29/2023 Resolved Ambulatory Problems Diagnosis Date Noted [...] ASSESSMENT & PLAN ICD-10-CM 1. Second trimester ([facility]) Z34.92 2. 24 weeks gestation of ([facility]) Z3A.24 3. Hypertension, unspecified type I10 4. Seizure ([facility]) R56.9 Return OB: Patient presents today for a routine obstetrics appointment. Patient is currently 24w0d . Patient states she is doing well but has complaints of being tired due to current . Patient has verbalizes frequent movement. labor precautions was discussed/given and patient was instructed to perform kick counts three times a day. Pt was given 1-hr glucose order to obtain at [facility]. No orders of the defined types were placed in this encounter. Follow Up: Patient is to return to office in 4 weeks for routine OB appointment. Documented by Kim Sousa MA on behalf of: CHRISTIANA Mills documented in this encounterScotland County Memorial HospitalOfgglqlqgx57-07-9186 History of Present illness Narrative* Willis Chen [...] Problems Diagnosis Date Noted Hypertension 01/14/2023 Seizure ([facility]) 07/09/2021 Breech presentation, no version ([facility]) 07/29/2023 Resolved Ambulatory Problems Diagnosis Date Noted [...] nursing note reviewed. Exam conducted with a adjunct latin professor present. Vitals: Estimated body mass index is 27.04 kg/m as calculated from the following: Height as of 11/16/22: 5' 9 . Weight as of this encounter: 183 lb 1.9 oz. BP: 110/70 Patient's last menstrual period was 11/13/2024. Assessment/Plan Encounter Diagnosis: ICD-10-CM 1. 20 weeks gestation of ([facility]) Z3A.20 POCT urinalysis dipstick manually resulted 2. Second trimester ([facility]) Z34.92 POCT urinalysis dipstick manually resulted Return [...] of: Willis Chen DO documented in this encounterScotland County Memorial HospitalLltdmsthae50-47-6282 History of Present illness Narrative* CHRISTIANA Mills [...] Problems Diagnosis Date Noted Hypertension 01/14/2023 Seizure ([facility]) 07/09/2021 Breech presentation, no version ([facility]) 07/29/2023 Resolved Ambulatory Problems Diagnosis Date Noted [...] HPV DNA probe, amplified 2. Second trimester ([facility]) Z34.92 POCT urinalysis dipstick manually resulted Alpha fetoprotein, maternal Alpha fetoprotein, maternal 3. 16 weeks gestation of ([facility]) Z3A.16 POCT urinalysis dipstick manually resulted Alpha fetoprotein, maternal Alpha fetoprotein, maternal 4. Vaginal discharge N89.8 SURESWAB(R) ADVANCED VAGINITIS PLUS, TMA 5. STD exposure Z20.2 CHLAMYDIA TRACHOMATIS (GENITO/STI) Neisseria gonorrhea DNA probe, direct 6. Screening, , for anatomic survey ([facility]) Z36.89 OB 14+ weeks anatomy scan Return [...] behalf of: CHRISTIANA Mills documented in this encounterScotland County Memorial HospitalZqihqzrqku69-40-2146 History of Present illness Narrative* Cyndi Andrade, CONSTRUCTION PROJECT MGR - 02/07/2025 3:10 PM EDT Reason for [...] Problems Diagnosis Date Noted Hypertension 01/14/2023 Seizure ([facility]) 07/09/2021 Breech presentation, no version ([facility]) 07/29/2023 Resolved Ambulatory Problems Diagnosis Date Noted [...] nursing note reviewed. Exam conducted with a adjunct latin professor present. Vitals: Estimated body mass index is 26.11 kg/m as calculated from the following: Height as of 11/16/22: 5' 9 . Weight as of this encounter: 176 lb 12.8 oz. BP: 114/74 Patient's last menstrual period was 11/13/2024. ASSESSMENT & PLAN ICD-10-CM 1. First trimester ([facility]) Z34.91 POCT urinalysis dipstick manually resulted 2. 12 weeks gestation of ([facility]) Z3A.12 POCT urinalysis dipstick manually resulted New [...] meat, and stay away from [facility]. Patient has been consulted regarding any further do's and don'tsof . Patient voiced understanding and all questions and concerns were answered. Orders Placed This Encounter Procedures POCT urinalysis dipstick manually resulted Follow Up: Patient is to return in 4 weeks for routine OB appointment. Documented by Cyndi Andrade LPN on behalf of: Willis Chen DO documented in this encounterScotland County Memorial HospitalSbsrbgraaa32-60-1006 History of Present illness Narrative* CHRISTIANA Mills [...] Problems Diagnosis Date Noted Hypertension 01/14/2023 Seizure ([facility]) 07/09/2021 Breech presentation, no version ([facility]) 07/29/2023 Resolved Ambulatory Problems Diagnosis Date Noted [...] ASSESSMENT & PLAN ICD-10-CM 1. First trimester ([facility]) Z34.91 2. 11 weeks gestation of ([facility]) Z3A.11 Patient is presents for er follow [...] behalf of: CHRISTIANA Mills documented in this encounterScotland County Memorial HospitalBwauiipxon06-83-0311 History of Present illness Narrative* Damaris Agosto [...] oz F CS-LTranv JACKSON Complications: Breech presentation ([facility]) 1 AB Obstetric Comments Last pap smear date 2 years ago Current Medications: has a current medication list which includes the following prescription(s): labetalol, lamotrigine,and mv-min-fe fum-fa-dha. Medical History: Active Ambulatory Problems Diagnosis Date Noted Hypertension 01/14/2023 Seizure ([facility]) 07/09/2021 Breech presentation, no version ([facility]) 07/29/2023 Resolved Ambulatory Problems Diagnosis Date Noted [...] dipstick manually resulted , unspecified gestational age ([facility]) - Type and screen; Future - ABO/Rh; Future - CBC and differential - Hemoglobin A1c - RPR - Rubella antibody, IgG - Hepatitis B surface antigen - Hepatitis C antibody - HIV-1 and HIV-2 antibodies - Rapid drug screen, urine; Future Encounter for supervision of normal first in first trimester ([facility]) - Rapid drug screen, urine; Future OB [...] meat, and stay away from [facility]. Patient has also been advised to [...] by: Damaris Agosto MA documented in this encounterScotland County Memorial HospitalHymoijtjai08-19-4532 Evaluation + Plan note* Assessment & Plan [...] Primary Care - PCP - Established; Future [facility] Work Phone: 1(162) 269-508802-25-2025 Evaluation + Plan note* Assessment & Plan Note - Koffi Uriarte MD - 09/12/2024 12:40 PM ESTAssociated Problem(s): Seizure (Multi) Good control. Follow up with neuro. Continue meds [facility] Work Phone: 1(677) 447-912602-25-2025 Evaluation + Plan note* Assessment & Plan Note - Koffi Uriarte MD - 09/12/2024 12:40 PM ESTAssociated Problem(s): Vitamin B12 deficiency [facility] Work Phone: [phone] 798-862402-25-2025 Evaluation + Plan note* Assessment & Plan Note - Koffi Uriarte MD - 09/12/2024 12:40 PM ESTAssociated Problem(s): Fatigue We talked about healthy habits and sleep hygiene Orders: CBC; Future TSH with reflex to Free T4 if abnormal; Future Vitamin B12; Future [facility] Work Phone: 1(196) 938-963702-25-2025 History of Present illness Narrative* Koffi Uriarte MD - 09/12/2024 12:40 PM EST Subjective Princess Guerrero is a 28 y.o. 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 Here for a [...] mg daily or vitamins. documented in this [facility] Work Phone: 1([phone] 660-370102-25-2025 Instructions* Patient Instructions* Koffi Uriarte MD - 09/12/2024 12:40 PM EST Please start back on folic acid 1 mg daily or vitamins. documented in this [facility] Work Phone: [phone]) 934-531402-25-2025 Miscellaneous Notes* Assessment & Plan Note - [...] Future Vitamin B12; Future documented in this [facility] Work Phone: 1(684) 195-875010-16-2024 History of Present illness Narrative* Nedra Calderon MD - 05/03/2024 9:30 AM EDT Images from the original note were not included. Neurological [facility] Referring: No ref. provider found PCP: [...] further seizures. She is now working for [employer] as the health department wanted to transition her to the [place] [facility]. Patient Active Problem List Diagnosis Anxiety [...] in upper and lower extremities. Coordination Right: Yypvbt-rx-bosm normal.Left: Yqnqpc-yh-vkjo normal. Physical Exam Eyes: Extraocular Movements: Extraocular [...] file for this visit. 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 Patient Active Problem List Diagnosis Abnormal weight [...] 5/5 throughout all four extremities. Coordination Right: Kqehtq-eb-huto normal.Left: Bkklox-hv-fsbz normal. Physical Exam Eyes: Extraocular Movements: Extraocular [...] Follow-up in 1 year documented in this [facility] Work Phone: 1(628) 664-595805-10-2023 NoteEXAMINATION: US PELVIS TRANSVAG HISTORY: Reproductive care [...] authenticated by: HAYLIE HOUSER Date: 2022-11-25 17:20[facility] CenterRjfeqicw33-75-6951 NoteHNO ID: [id number] Author: Brendan Blankenship PA-C Service: ? 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 I, Brendan Blankenship, have reviewed this information as documented for accuracy and performed all elements of history taking, and edited the record as necessary. ROS: SEE HPI PE: GENERAL: well-appearing, in no acute distress LUNGS: Normal inspiratory effort BUSINESS SOLUTIONS CONSULTANT: Normal external genitalia, no vaginal bleeding, small [...] testing/treatment Medical Decision Making Level: [facility] Miscellaneous Notes* Telephone Encounter - Mary Onofre [...] and move appt sooner. documented in this encounterBer[facility] Hospital09-[facility]-2022 Miscellaneous Notes* Telephone Encounter - Mary Onofre RN - 03/19/2022 8:50 AM EDT LMP 02/11, +hpt. Assisted w initial OBV. Advised to take vitamin w folic acid. First trimester precautions provided. handbook sent in . documented in this encounterBerger Hospital07-19-2022 Miscellaneous Notes* Telephone Encounter - Brendan [...] this medication MICHELLE: No documented in this encounterBerger Hospital02-22-2022 NoteHNO ID: [id number] Author: Brendan Blankenship PA-C Service: ? 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 Portions of this record were documented by the Special Education Professor. I, Brendan Blankenship, have reviewed this information as documented for accuracy and performed all elements of history taking, and edited the record as necessary. ROS: SEE HPI PE: GENERAL: well-appearing, in no acute distress LUNGS: Normal inspiratory effort BUSINESS SOLUTIONS CONSULTANT: Small amount yellow mucus discharge, cervix NL. [...] testing/treatment Medical Decision Making Level: 3 - [facility]21 Note HNO ID: [id number] Author: 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 APRN.TRAINING MGR Service: ? 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 Avoid scratching, scented pads/tampons/toilet papers, cranberry juice, bubble baths, and intercourse until symptoms are relieved. NO douching. If you shave, use a new razor at least twice monthly. 5) Follow up one year or sooner as needed 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 APRN.[facility] History of Past illness Narrative* ProblemNoted DateResolved DateNO SHOW documented as of this encounter (statuses as of 02/03/2022) [facility] of Past illness Narrative* ProblemNoted Date Resolved DateNO SHOWdocumented as of this encounter (statuses as of 03/19/2022) [facility] of Past illness Narrative* ProblemNoted Date Resolved DateNO SHOWdocumented as of this encounter (statuses as of 03/24/2022) [facility] HospitalEvaluation + Plan note No data available for this section [facility] Diagnosis Acute vaginitis- Primary Vaginitis and vulvovaginitis, unspecified documented [facility]* Diagnosis Bleeding in early - Primary Unspecified hemorrhage in early , unspecified as to episode of care [facility] Diagnosis Seizure (CMS/HCC)- Primary Other convulsions documented in this encounter [facility] Work Phone: Evaluation noteNo assessment information available [facility] Work Phone: Evaluation note* Diagnosis Seizure (Multi)- Primary Other convulsions documented in this encounter [facility] Work Phone: Evaluation note* Diagnosis Benign essential hypertension- Primary Essential hypertension, benign Seizure (Multi) Other convulsions Vitamin B12 deficiency Other B-complex deficiencies Fatigue, unspecified type Well adult health check Unspecified general medical examination Vitamin D deficiency documented in this encounter [facility] Work Phone: Evaluation note* Diagnosis Missed menses Missed menses , unspecified gestational age (HHS-HCC) Encounter for supervision of normal first in first trimester ([facility]) Nausea and vomiting in ([facility]) Unspecified vomiting of , unspecified as to episode of care Seizure (HCC) Other convulsions Chronic hypertension documented in this encounter [facility]* Diagnosis Nausea and vomiting, unspecified [...] STD exposure Screening, , for anatomic survey ([facility]) Encounter for anatomic survey [facility] Diagnosis 20 weeks gestation of ([facility]-HCC) Second trimester (HHS-HCC) state, incidental documented [facility]* Diagnosis Second trimester (HHS-HCC) state, incidental 24 weeks gestation of ([facility]) Hypertension, unspecified type Seizure (HCC) Other convulsions [...] up with her boyfriend. * Working in [employer] at the [employer]. * BP is much improved on lisinopril. * Saw gyne for discharge. * was told she had BV and chlamydia. * took antibiotics, got better for a few weeks and now she is having discharge again and odor. no pelvic pain. [employer] Work Phone: History of Present illness Narrative* The patient states she has been doing well with her blood pressure control since the last visit. She has no comorbid illnesses. She has no significant interval events. * Symptoms: The patient is currently asymptomatic. * Less anxiety lately. Broke up with her boyfriend. * Working in [employer] at the [employer]. * BP is much improved on lisinopril. * Saw gyne for discharge. * was told she had BV and chlamydia. * took antibiotics, got better for a few weeks and now she is having discharge again and odor. no pelvic pain. [employer] Work Phone: Hospital Discharge instructions No data available for this section [facility] No data available for this section [facility] Summary Purpose Family History Mother [...] W WO CONTRAST Spike Garcia MD [address] [place] [address] Assessments Diagnosis Nonintractable generalized idiopathic epilepsy without status epilepticus (HCC) Diagnosis Seizure (HCC) Other convulsions Discharge Instructions * Attachments The following attachments cannot be sent through Care Everywhere. * Seizure (Welsh) documented in this encounter Chief Complaint and Reason for Visit Chief Complaint Nausea, diarrhea Additional Source Comments INFORMATION SOURCE (unrecogn ized section and content) DATE CREATED AUTHOR 01/11/2018 [facility] DATE CREATED AUTHOR AUTHOR'S ORGANIZ ATION 04/19/2020 [facility] DATE CREATED AUTHOR AUTHOR'S ORGANIZ ATION 05/11/2020 [facility] DATE CREATED AUTHOR AUTHOR'S ORGANIZ ATION 12/29/2020 [facility] DATE CREATED AUTHOR AUTHOR'S ORGANIZ ATION 04/20/2022 [facility] DATE CREATED AUTHOR AUTHOR'S ORGANIZ ATION 08/11/2022 [facility] DATE CREATED AUTHOR AUTHOR'S ORGANIZ ATION 11/29/2022 [facility] DATE CREATED AUTHOR AUTHOR'S ORGANIZ ATION 12/27/2022 [facility] DATE CREATED AUTHOR AUTHOR'S ORGANIZ ATION 09/07/2023 [facility] DATE CREATED AUTHOR AUTHOR'S ORGANIZ ATION 12/16/2023 [facility] DATE CREATED AUTHOR AUTHOR'S ORGANIZ ATION 04/01/2024 [facility] DATE CREATED AUTHOR AUTHOR'S ORGANIZ ATION 04/02/2024 [facility] DATE CREATED AUTHOR AUTHOR'S ORGANIZ ATION 07/14/2024 [facility] DATE CREATED AUTHOR AUTHOR'S ORGANIZ ATION 09/15/2024 [facility] DATE CREATED AUTHOR AUTHOR'S ORGANIZ ATION 04/22/2025 [facility] DATE CREATED AUTHOR AUTHOR'S ORGANIZ ATION 05/30/2025 [facility] EPIC Reason for Visit (unrecogniz ed section and content) StatusReasonSpecialtyDiagnoses / ProceduresReferred By ContactReferred To ContactClosedEEG Diagnoses Generalized idiopathic epilepsy and epileptic syndromes, not intractable, without status epilepticus Procedures HC EEG 16+ CHANNEL TELEMTERY 24HR Spike Garcia MD [address] [facility] [address] [place] [address] Mloz Eeg [address] [place] [address] StatusReasonSpecialtyDiagnoses / ProceduresReferred By ContactReferred To ContactClosedRadiology Diagnoses Generalized idiopathic epilepsy and epileptic syndromes, not intractable, without status epilepticus Procedures HC MRI-BRAIN WO & W CONTRAST Spike Garcia MD [address] [facility] [address] [place] [address] Mloz Mri [address] [place] [address] ReasonCommentsSeizuresSeizure like activityReasonCommentsAppointmentReason CommentsBleeding With PregnancyReasonCommentsSeizuresMedication udatesReason CommentsSeizuresReasonCommentsFollow-upFollow from furs salesperson appt for elevated BP ReasonCommentsAmenorrheaReasonCommentsRoutine VisitReasonComments Routine VisitWell Women VisitSTI Screening Source Comments (unrecognize d section and content) In the event this informatio n is protected by the Federal Confidentiality of Alcohol and Drug Abuse Patient Records regulations: The Federal rules restrict any use of the information to criminally investigate or prosecute any alcohol or drug abuse patient.[facility] HospitalIn the event this information is protected by the Federal Confidentiality of Alcohol and Drug Abuse Patient Records regulations: The Federal rules restrict any use of the information to criminally investigate or prosecute any alcohol or drug abuse patient.[facility] HospitalIn the event this information is protected by the Federal Confidentiality of Alcohol and Drug Abuse Patient Records regulations: The Federal rules restrict any use of the information to criminally investigate or prosecute any alcohol or drug abuse patient.[facility] Care Teams (unrecognized sec tion and content) Team MemberRelationshipSpecialtyStart DateEnd Date Koffi Uriarte MD PCP - GeneralFamily Practice08/17/16Team MemberRelationshipSpecialtyStart DateEnd Date Koffi Uriarte MD PCP - GeneralFamily Practice08/17/16Team MemberRelationshipSpecialtyStart [place] [address] [place] [address] PCP - General08/14/20 [place] [address] [place] [address] PCP - MMO ACO PCP02/16/23 Team Status: Active Member Role Status Dates Norma Houser APRN Primary Care Provider Active Team Status: Inactive Member Role Status Dates Yusra Whitehead APRN Attending Provider Active Start: November 09, 2023 End: November 09, 2023RAVIN [facility] Care ProviderActiveStart: November 09, 2023 End: November 09, 2023Team MemberRelationshipSpecialtyStart [place] [address] [place] [address] PCP - General08/14/20Team MemberRelationshipSpecialtyStart [place] [address] [place] [address] PCP - General08/14/20Team MemberRelationshipSpecialtyStart [place] [address] [place] [address] PCP - GeneralFamily Medicine01/14/23Team MemberRelationshipSpecialtyStart [place] [address] [place] [address] [facility] - [facility]01/14/23Team MemberRelationshipSpecialtyStart [place] [address] [place] [address] PCP - GeneralFamily Medicine01/14/23Team MemberRelationshipSpecialtyStart [place] [address] [address] PCP - GeneralFamily Medicine01/14/23Team MemberRelationshipSpecialtyStart [place] [address] [place] [address] PCP - GeneralFamily Medicine01/14/23Team MemberRelationshipSpecialtyStart [place] [address] [address] PCP - GeneralFamily Medicine01/14/23Team MemberRelationshipSpecialtyStart [place] [address] [place] [address] PCP - GeneralFamily Medicine01/14/23Team MemberRelationshipSpecialtyStart [place] [address] [place] [address] PCP - GeneralFamily Medicine01/14/23Team MemberRelationshipSpecialtyStart [place] [address] [place] [address] PCP - GeneralFamily Medicine01/14/23Team MemberRelationshipSpecialtyStart [place] [address] [place] [address] PCP - GeneralFamily Medicine01/14/23Te MemberRelationshipSpecialtyStart [place] [address] [place] [address] PCP - [facility]01/14/23Te MemberRelationshipSpecialtyStart [place] [address] [place] [address] PCP - [facility]01/14/23Te MemberRelationshipSpecialtyStart [place] [address] [place] [address] PCP - [facility]01/14/23 Goals (unrecognized section and content) Goals [...] BE BASED ON THE PRIMARY CLINICAL RECORDS. [facility] [employer] [facility]. provides no warranty or guarantee of the accuracy or completeness of information in this document.
--- OUTSIDE RECORDS SUMMARY | 2025-06-20 07:13 | XMS_ITS | Clinical Summary ---
Author Organization [facility] Address [address] [place] [address] Phone Care Team Providers Care Dividend Deposit Entry Clerk Name Role Phone Suzanne Uriarte MD [...] 180 tablet 6Active Active Problems ProblemNoted DateDiagnosed FqtaAqlwhvv15/25/2025 Assessment & Plan (09/14/2024 1:31 PM EST): We talked about healthy habits and sleep hygiene Orders: CBC; Future TSH with reflex to Free T4 if abnormal; Future Vitamin B12; Future Czjpqqe0210/02/2022enign essential mwqebifctdte80/17/2023 Assessment & Plan (09/14/2024 1:31 PM EST): [...] Primary Care - PCP - Established; Future Trtrwyt5510/02/2022 Assessment & Plan (09/14/2024 1:31 PM EST): Good control. Follow up with neuro. Continue meds Vitamin B12 adteoftfhu56/17/2023 Assessment & Plan (09/14/2024 1:31 PM EST): Resolved Problems ProblemNoted DateDiagnosed DateResolved DateClass 1 obesity with body mass index (BMI) of 32.0 to 32.9 in adult/7015Pzjyiqkcfouh54/29/2023 09/12/2024bnormal weight gain/llergic flnaoamv45/17/2023 05/03/2024acterial rzopykiqn70/ilateral chronic otitis media /hest painhronic wirlrwdiwbqj43/17/2023 05/03/2024hronic zqsenpubh70onductive hearing loss, qotuoqrnd36/Elevated BP without diagnosis of hypertension /Globus /Hair loss10/02/2022 05/03/20248107Jjhjwtle56/17/202310/Tonsil stoneVaginal aykyzdpxf61 Encounters DateTypeDepartmentCare RghiCdaxhurpwch75/01/2025Orders Only [address] [place] [phone] Mei Soto MA Seizure (Multi)06/13/2025Telephone [address] [place] [address] Mei Soto MA Medical Advice/Sjtxacys58/27/2025Orders Only [facility] [address] [place] [address] Nedra Deleon MD Unspecified convulsions (Multi)04/18/2025Telephone [facility] Primary [facility] [address] [place] [address] Kim Fuentes MA 04/17/2025Refill [facility] [address] [place] [address] Suzanne Uriarte MD Benign essential gxgiuqqqhbxq13/23/2025Scanned Document [facility] [address] [address] Suzanne Uriarte MD 03/21/2025Refill [facility] [address] [place] [address] Suzanne Uriarte MD Benign essential hypertensionfrom Last 3 Months Immunizations ImmunizationAdministration DatesNext QjnVMZ6904/16/1994,02/12/1994,1993DTaP, Xnnrpqrglgg27/25/1999,01/07/1995Flu vaccine (IIV4), preservative free *Check age/dose*04/22/2023,04/21/2022,04/18/2021,05/06/2017Flu vaccine, quadrivalent, no egg protein, age 6 month or greater (FLUCELVAX)05/09/2019Hepatitis B vaccine, 19 yrs and under (RECOMBIVAX, ENGERIX)06/18/1994,01/08/1994,1993Hepatitis B vaccine, adult *Check Product/Dose*11/01/2023HiB PRP-OMP conjugate vaccine, pediatric (PEDVAXHIB)10/22/1994,04/16/1994,02/12/1994,1993Hib (HbOC) 03/12/1999Influenza, injectable, ahkaesoqqmrb32/11/2018MMR vaccine, subcutaneous (MMR II)03/12/1999,10/22/1994Meningococcal ACWY-D (Menactra) 4-valent conjugate jursyyv1602/25/2007OPV03/12/1999,04/16/1994,02/12/1994,1993PPD Test 11/30/2014,12/15/2013Pneumococcal polysaccharide vaccine, 23-valent, age 2 years and older (PNEUMOVAX 23)01/14/2016Poliovirus vaccine, subcutaneous (IPOL) 10/22/1994Tdap vaccine, age 7 year and older (BOOSTRIX, ADACEL)06/08/2023, 02/16/2018,03/02/2008 Family History Medical HistoryRelationNameCommentsHypertensionFatherRichardCancerMaternal GrandfatherJosephDementiaMaternal Grandmother 1AliceDementiaMaternal Grandmother 2AliceAnxiety disorderMotherMigrainesMotherCancerPaternal GrandmotherUnknown RelationNameStatusCommentsFatherRichardAliveMaternal GrandfatherJosephAlive Maternal Grandmother 1AliceAliveMaternal Grandmother 2AliceAliveMotherAlive Paternal GrandmotherUnknownAlive Social History Tobacco UseTypesPacks/DayYears UsedDateSmoking Tobacco: NeverPassive Smoke Exposure: NeverSmokeless Tobacco: Current Tobacco Cessation:Counseling Given: Not Answered Alcohol UseStandard Drinks/WeekCommentsNot Currently0 (1 standard drink = 0.6 oz pure alcohol)SociallyAUDIT-CAnswerDate RecordedQ1: How often do you have a drink containing alcohol?Never05/03/2024Q2: How many drinks containing alcohol do you have on a typical day when you are drinking?Patient does not drink05/03/2024Q3: How often do you have six or more drinks on one occasion?Never05/03/2024HQ-2 AnswerDate RecordedPatient Health Questionnaire-2 Gvyra972/16/2024 CommentsNoSex and Gender InformationValueDate RecordedSex Assigned at BirthNot on fileLegal HafGwgslj85/25/2022 10:33 PM ESTGender IdentityNot on fileSexual OrientationNot on file Last Filed Vital Signs Vital SignReadingTime TakenCommentsBlood Nmxycaje338/9609/12/2024 12:28 PM EST Xsfeq104209/12/2024 12:28 PM TSVEtadyycrsbq20.3 ??C (97.3 ??F)09/12/2024 12:28 PM ESTRespiratory Dztm161207/31/2022 10:54 AM ESTOxygen Migqzxiwpq978%12/24/2021 11:32 AM EDTInhaled Oxygen Concentration--Thhusp78.1 kg (183 lb 4 oz)09/12/2024 12:28 PM OHYPlqrnd116.3 cm (5' 9 )09/12/2024 12:28 PM ESTBody Mass Index27.06 09/12/2024 12:28 PM EST Plan of Treatment DateTypeDepartmentCare Team (Latest Contact Info)Pqtpnobwniz12/03/2025 3:00 PM ESTTelemedicine [facility] [address] [phone] Laila Jin, BRUSH CUTTER-CAR STEREO INSTALLER [address] [place], [place] [id number] Health MaintenanceDue DateLast DoneCommentsHIV Hfzpyooon24/16/1994Hepatitis C Taylzzrqi64/16/2012HPV/Snkxar9410/01/2014HPV Vaccines (1 - 3-dose standard series) 2020Yearly Adult Ytequkmr90/, 07/31/2022, 07/31/2022, Additional history existsInfluenza Vaccine (#1)/11/2022, 04/21/2022, 04/18/2021, Additional history existsCOVID-19 Vaccine (2 - 2024- season) /ervical Cancer Homiwhrlv13/20/2028Pap Smear03/07/2028 03/07/2025, 03/10/2023, 03/09/2023, Additional history existsLipid Panel DTaP/Tdap/Td Vaccines (9 - Td or Tdap), 02/16/2018, 03/02/2008, Additional history existsZoster Vaccines (1 of 2) 10/02/2043HIB PqyaqukrJewuavzqr36/25/1999, 10/22/1994, 04/16/1994, Additional history existsIPV BeeywzkqBvkvndgvu31/25/1999, 10/22/1994, 04/16/1994, Additional history existsMMR IdcglgrbFfvikunnd90/25/1999, 10/22/1994 Meningococcal VaccineAged Out02/25/2007No longer eligible based on patient's age to complete this topicPneumococcal Vaccine: Pediatrics and At-Risk Adult PatientsAged Out01/14/2016No longer eligible based on patient's age to complete this topicHepatitis B StwycznzAlesrbgna19/15/2024, 06/18/1994, 01/08/1994, Additional history existsHepatitis A VaccinesAged [...] PM EST)ComponentValueRef RangeTest MethodAnalysis TimePerformed AtPathologist SignatureCHOLESTEROL, SYTBW774<200 mg/dLQuest Chan Soon[facility] Center at WindberHDL KZZDBWDJAYI25> OR = 50 mg/dLQuest Diagnostics Clarion HospitalTRIGLYCERIDES103<150 mg/dLQuest Chan Soon-Sh[facility] Medical Center at WindberVmpwylaxhcvh-EfmaxfobumKGV-HNVLWDLSLJG10yv/dL (calc)[facility] Clarion HospitalComment: Reference range: <100 Desirable range <100 mg/dL for primary prevention; <70 mg/dL for patients with CHD or diabetic patients with > or = 2 CHD risk factors. LDL-C is now calculated using the Dean calculation, which is a validated novel method providing better accuracy than the Friedewald equation in the estimation of LDL-C. Tres SS et al. STEPHANIE. 2013;310(19): 0337-5923 (http://education.[employer]/faq/BBL017) CHOL/HDLC RATIO3.2<5.0 (calc)[facility]NON HDL YVGKASWLKZC741<130 mg/dL (calc)[facility] Comment: For patients with diabetes plus 1 major ASCVD risk factor, treating to a non-HDL-C goal of <100 mg/dL (LDL-C of <70 mg/dL) is considered a therapeutic option. Specimen (Source)Anatomical Location / LateralityCollection Method / Volume Collection TimeReceived TimeBloodVenous blood specimen / Puktdar1909/12/2024 1:43 PM EST09/12/2024 1:44 PM EST Narrative [facility] - 09/13/2024 6:42 AM EST FASTING:YES FASTING: YES Authorizing ProviderResult TypeResult StatusMonminesh Uriarte MDNEK CENTER FOR HE[facility] AND [facility]NESS BLOOD ORDERABLESFinal ResultPerforming OrganizationAddressCity/State/ZIP CodePhone Number [address] [phone] from Last 3 Months or Most Recently Relevant to Health Maintenance Insurance Care Teams Team MemberRelationshipSpecialtyStart [place] [address] [place] [address] PCP - General08/14/20
--- OUTSIDE RECORDS SUMMARY | 2025-06-20 07:13 | XMS_ITS | Encounter Summary ---
Author Organization [facility] Address [address] [facility] [place] [address] Care Team Providers Care Metal Storage Worker Name Role Phone Suzanne Uriarte MD Primary Care Provider [phone] Encounter Details DateTypeDepartmentCare Team (Latest Contact Info)Ifupnrcqtrt21/26/2025bstract [facility] Giselle LAY[facility] [address] [place] [address] Willis Chen DO [address] [place] [address] [address], [place] [address] Social History Tobacco UseTypesPacks/DayYears UsedDateSmoking Tobacco: Never Assessed Estimated Date of OkdigfepLjuzzxzzVhj59/02/2026ased on last menstrual period of 11/13/2024Sex and Gender InformationValueDate RecordedSex Assigned at BirthFemale 12/21/2022 8:22 PM EDTLegal ZfqNufywf77/15/2023 11:40 PM EDTGender Identity Bbrcfk3412/21/2022 8:22 PM EDTSexual DgmhybuqepoJndpgvqv27/05/2023 8:22 PM EDT documented as of this encounter Plan of Treatment DateTypeDepartmentCare Team (Latest Contact Info)Tncqflyysyx56/10/2025 3:00 PM ESTRoutine [facility] Giselle LAYTON [address] [facility] [place] [address] Willis Chen DO [address] [place] [address] documented as of this encounter Goals GoalPatient Goal TypeAssociated ProblemsRecent ProgressPatient-Stated?Author Reminders Care PlanOB RemindersNoOpen Scheduling, Backgrounddocumented as of this encounter Visit Diagnoses Not on filedocumented in this encounter Additional Health Concerns Active ProblemsNoted DateDiagnosed DateOB Mupjsoxnb98/29/2023 documented as of this encounter Care Teams Team MemberRelationshipSpecialtyStart [place] [address] [place] [address] PCP - GeneralFamily Medicine01/14/23documented as of this encounter
--- OUTSIDE RECORDS SUMMARY | 2025-06-20 07:13 | XMS_ITS | Encounter Summary ---
Author Organization [facility] Address [address] [facility] [place] [address] Care Team Providers Care Jewelry Cutter Name Role Phone Suzanne Uriarte MD Primary Care Provider +1- [phone] Encounter Details DateTypeDepartmentCare Team (Latest Contact Info)Zmizwxqaxak80/28/2025linisync Result Encounter [facility] External Department Unsolicited Roula Grullon PA [address] [facility] [address] [facility] [address] [place], [facility]11 Social History Tobacco UseTypesPacks/DayYears UsedDateSmoking Tobacco: Never Assessed Estimated Date of TjzuksflSdewgeqoAag13/02/2026Based on last menstrual period of 11/13/2024Sex and Gender InformationValueDate RecordedSex Assigned at BirthFemale 12/21/2022 8:22 PM EDTLegal UacJwouww93/15/2023 11:40 PM EDTGender Identity Folewv3512/21/2022 8:22 PM EDTSexual GqmkhhdprseCawvtgob78/05/2023 8:22 PM EDT documented as of this encounter Plan of Treatment DateTypeDepartmentCare Team (Latest Contact Info)Idcmrkdsica23/10/2025 3:00 PM ESTRoutine [facility] [address] [facility] [place] [address] Willis Chen DO [address] [place], [facility]11 documented as of this encounter Goals GoalPatient Goal TypeAssociated ProblemsRecent ProgressPatient-Stated?Author Reminders Care PlanOB RemindersNoOpen Scheduling, Backgrounddocumented as of this encounter Procedures Procedure NamePriorityDate/TimeAssociated DiagnosisCommentsTRANSFERRINRoutine 06/15/2025 2:57 PM EST [facility] RWUMKEMZJefnoym93/28/2025 2:57 PM EST documented in this encounter Results * (ABNORMAL) TRANSFERRIN (06/15/2025 2:57 PM EST)ComponentValueRef RangeTest MethodAnalysis TimePerformed AtPathologist HkxwdmbznQIDFSMCLXBG547(A)192 - 364 mg/dLTBHComment: Performed at: ?? - [facility] [address] ??[id number] Classroom Assistant: Jose Fallon PhD, Phone: ??[phone] Specimen (Source)Anatomical Location / LateralityCollection Method / Volume Collection TimeReceived Time06/15/2025 2:57 PM EST06/15/2025 2:59 PM EST Narrative [facility] - 06/16/2025 7:07 AM EST Authorizing ProviderResult TypeResult StatusAmy Mitchel PALAB BLOOD ORDERABLES Final ResultPerforming OrganizationAddressCity/State/ZIP CodePhone Number [facility] * (ABNORMAL) [facility] FERRITIN (06/15/2025 2:57 PM EST)ComponentValueRef RangeTest MethodAnalysis TimePerformed AtPathologist SignatureFERRITIN6.0(L)8.0 - 252.0 ng/mLTBHSpecimen (Source)Anatomical Location / LateralityCollection Method / VolumeCollection TimeReceived Time06/15/2025 2:57 PM EST06/15/2025 2:59 PM EST Narrative [facility] - 06/15/2025 3:40 PM EST Authorizing ProviderResult TypeResult StatusAmy [place] PACLINISYNCFinal Result Performing OrganizationAddressCity/State/ZIP CodePhone Number [facility] documented in this encounter Visit Diagnoses Not on filedocumented in this encounter Additional Health Concerns Active ProblemsNoted DateDiagnosed DateOB Htmvdlrnh46/29/2023 documented as of this encounter Care Teams Team MemberRelationshipSpecialtyStart [place] [address] [place], [place] [id number] PCP - GeneralFamily Medicine01/14/23documented as of this encounter
--- OUTSIDE RECORDS SUMMARY | 2025-06-20 07:13 | XMS_ITS | Encounter Summary ---
Author Organization [facility] Address [address] [place] [address] Care Team Providers Care Manager Nc Name Role Phone Suzanne Uriarte MD Primary Care Provider +1- [phone] Encounter Details DateTypeDepartmentCare Team (Latest Contact Info)Sfeakewxlih43/25/2025Travel Social History Tobacco UseTypesPacks/DayYears UsedDateSmoking Tobacco: Never Assessed Estimated Date of NzzrdedwLqlrncxnDax76/02/2026ased on last menstrual period of 11/13/2024Sex and Gender InformationValueDate RecordedSex Assigned at BirthFemale 12/21/2022 8:22 PM EDTLegal SjhKuojrg44/15/2023 11:40 PM EDTGender Identity Kvvdlj8412/21/2022 8:22 PM EDTSexual CszgjkxzuvdJdjlbtqk83/05/2023 8:22 PM EDT documented as of this encounter Plan of Treatment DateTypeDepartmentCare Team (Latest Contact Info)Lsntwwqhlly12/10/2025 3:00 PM ESTRoutine [facility] [address] [place] [phone] Willis Chen DO [address] [facility] [place] [address] documented as of this encounter Goals GoalPatient Goal TypeAssociated ProblemsRecent ProgressPatient-Stated?Author Reminders Care PlanOB RemindersNoOpen Scheduling, Backgrounddocumented as of this encounter Visit Diagnoses Not on filedocumented in this encounter Additional Health Concerns Active ProblemsNoted DateDiagnosed DateOB Evumdenip10/29/2023 documented as of this encounter Care Teams Team MemberRelationshipSpecialtyStart [place] [address] [address], [place] [phone] PCP - GeneralFamily Medicine01/14/23documented as of this encounter
--- OUTSIDE RECORDS SUMMARY | 2025-06-20 07:13 | XMS_ITS | Encounter Summary ---
Author Organization [facility] Address [address] [facility] [place] [address] Care Team Providers Care Principal Hardware Architect Name Role Phone Suzanne Uriarte MD Primary Care Provider +1- [phone] Encounter Details DateTypeDepartmentCare Team (Latest Contact Info)Zwqtwhfskmh34/26/2025bstract [facility] [address] [facility] [place] [address] Willis Chen DO [address] [place] [address] Corn[place], [place] [address] Social History Tobacco UseTypesPacks/DayYears UsedDateSmoking Tobacco: Never Assessed Estimated Date of UjantwieBehxsacnPyi76/02/2026ased on last menstrual period of 11/13/2024Sex and Gender InformationValueDate RecordedSex Assigned at BirthFemale 12/21/2022 8:22 PM EDTLegal MxfViyzmh65/15/2023 11:40 PM EDTGender Identity Kipdbn6112/21/2022 8:22 PM EDTSexual SruleohlrbgGzwwnpfy82/05/2023 8:22 PM EDT documented as of this encounter Plan of Treatment DateTypeDepartmentCare Team (Latest Contact Info)Dapkjnjvwka05/10/2025 3:00 PM ESTRoutine [facility] G[facility]elle L[facility] [address] [facility] [place] [address] Willis Chen DO [address] [place] [address] documented as of this encounter Goals GoalPatient Goal TypeAssociated ProblemsRecent ProgressPatient-Stated?Author Reminders Care PlanOB RemindersNoOpen Scheduling, Backgrounddocumented as of this encounter Visit Diagnoses Not on filedocumented in this encounter Additional Health Concerns Active ProblemsNoted DateDiagnosed DateOB Imsqwzcth88/29/2023 documented as of this encounter Care Teams Team MemberRelationshipSpecialtyStart [place] [address] [place] [address] PCP - GeneralFamily Medicine01/14/23documented as of this encounter
--- OUTSIDE RECORDS SUMMARY | 2025-06-20 07:13 | XMS_ITS | Encounter Summary ---
Author Organization [facility] Address [address] [facility] [place] [address] Care Team Providers Care Clam Picker Name Role Phone Suzanne Uriarte MD Primary Care Provider +1- [phone] Encounter Details DateTypeDepartmentCare Team (Latest Contact Info)Zzazjjryque37/25/2025linisync Result Encounter [facility] External Department Unsolicited Willis Chen DO [address] [place], [place] [id number] Social History Tobacco UseTypesPacks/DayYears UsedDateSmoking Tobacco: Never Assessed Estimated Date of MagwibulOrcfpucpOxm70/02/2026Based on last menstrual period of 11/13/2024Sex and Gender InformationValueDate RecordedSex Assigned at BirthFemale 12/21/2022 8:22 PM EDTLegal AviNnmggz15/15/2023 11:40 PM EDTGender Identity Dwajmc1712/21/2022 8:22 PM EDTSexual YmqqqpnkbvfHagvrtwf22/05/2023 8:22 PM EDT documented as of this encounter Plan of Treatment DateTypeDepartmentCare Team (Latest Contact Info)Bqmvlmsrckj83/10/2025 3:00 PM ESTRoutine [facility] [address] [facility] [place] [phone] Willis Chen DO [address] [place] [address] documented as of this encounter Goals GoalPatient Goal TypeAssociated ProblemsRecent ProgressPatient-Stated?Author Reminders Care PlanOB RemindersNoOpen Scheduling, Backgrounddocumented as of this encounter Procedures Procedure NamePriorityDate/TimeAssociated DiagnosisCommentsTBH UA (CLEAN/CATCH) SALON ASSISTANT/MICRO IF IND.Kgvwwdo0806/12/2025 4:40 PM EST documented in this encounter Results * (ABNORMAL) TBH UA (CLEAN/CATCH) SALON ASSISTANT/MICRO IF IND. (06/12/2025 4:40 PM EST) ComponentValueRef [...] Additional Health Concerns Active ProblemsNoted DateDiagnosed DateOB Lkmnnaais87/29/2023 documented as of this encounter Care Teams Team MemberRelationshipSpecialtyStart [place] [address] [place] [address] PCP - GeneralFamily Medicine01/14/23documented as of this encounter
--- OUTSIDE RECORDS SUMMARY | 2025-06-20 07:13 | XMS_ITS | Encounter Summary ---
Author Organization [facility] Address [address] [place] [address] Phone Care Team Providers Care Civil Engineering Drafter Name Role Phone Suzanne Uriarte MD Primary Care Provider + Reason for Visit * ReasonOnset DateCommentsMedical Advice/Yjvcfhdy07/26/2025 Encounter Details DateTypeDepartmentCare Team (Latest Contact Info)Senundqdkcn56/26/2025Telephone [facility] [address] [facility] [address] Mei Soto MA Medical Advice/Question [...] drinks on one occasion?Never05/03/2024HQ-2AnswerDate RecordedPatient Health Questionnaire-2 Jbmql873/16/2024CommentsNoSex and Gender Information ValueDate RecordedSex Assigned at BirthNot on fileLegal QhbBwjmjd76/25/2022 10:33 PM ESTGender IdentityNot on fileSexual OrientationNot on filedocumented as of this encounter Miscellaneous Notes * Telephone Encounter - Nedra Deleon MD - 06/13/2025 1:39 PM EST Returned phone call to patient. Nocturnal seizure last night. Was seen at the ED at [facility]. Lamotrigine level was checked but result [...] minutes. She states that she went to [facility] and they increased her lamotrigine to 150 mg and she is currently . She wanted to verify things with you. Please Advise. documented in this encounter Plan of Treatment DateTypeDepartmentCare Team (Latest Contact Info)Pwnhjzqgsey13/03/2025 3:00 PM ESTTelemedicine [place] [phone] [facility] [address] [phone] Laila Jin APRN-CNP [address] [place] [address] NameTypePriorityAssociated DiagnosesOrder ScheduleLamotrigine levelLabRoutine Seizure (Multi) Expected: 06/18/2025 (Approximate), Expires: 06/13/2026documented as of this encounter Visit Diagnoses Diagnosis Seizure (Multi)- Primary Other convulsions documented in this encounter Additional Health Concerns AssessmentNoted TimeA fall risk assessment has been completed for the patient 05/03/2024 9:18 AM EDTdocumented as of this encounter Care Teams Team MemberRelationshipSpecialtyStart [place] [address] [place], [place] [phone] PCP - General08/14/20documented as of this encounter
--- OUTSIDE RECORDS SUMMARY | 2025-06-20 07:13 | XMS_ITS | Clinical Summary ---
Author Organization [facility] Healthcare Address [address] [place] [address] Care Team Providers Care Adult Basic Education Instructor Name Role Phone Koffi Uriarte MD Primary Care Provider +1- [phone] Allergies No known active allergies Medications MedicationSigDispense [...] Problems ProblemNoted DateDiagnosed DateBreech presentation, no version ([facility]) 07/29/20238330Pfmtwdiotbws64/29/1417Oanfxxo43/22/2021Estimated Date of AshhblziVfuwxtjrImc08/02/2026ased on last menstrual period of 11/13/2024 Encounters DateTypeDepartmentCare IzwfCvnoauaujvo90/28/2025linisync Result Encounter NOMS External Department Unsolicited Roula Grullon PA 06/13/2025 3:00 PM ESTRoutine [facility] [address] [place] [address] Roula Grullon PA Third trimester ([facility]); 30 weeks gestation of ([facility]); Antepartum anemia ([facility])06/13/2025 2:30 PM ESTAncillary Procedure [facility] [address] [place] [address] Hypertension, unspecified type; Seizure ([facility])06/13/2025bstract [facility] Nash O[facility] [address] [place] [address] Lisa Chen, DO 06/13/2025bstract [facility] [address] [place] [address] Lisa Chen, DO 06/13/2025bstract [facility] [address] [place] [address] Lisa Chen, DO 5Clinisync Result Encounter NOMS External Department Unsolicited Lisa Chen, DO 06/12/20252938Eczqdh77/25/2025Telephone [facility] [address] [place] [address] Lisa Chen, DO 05/29/2025 11:40 AM ESTRoutine [facility] G[facility]elle OBGYDelvin [address] [place] [address] Lisa Chen, DO 28 weeks gestation of ([facility]); Third trimester ([facility]); Hypertension, unspecified type; Seizure (HCC); Hemoglobin low05/29/2025amboo flowsheet [facility] [address] [place] [address] Lisa Chen, 05/22/20253871Taehel70/01/2025Clinisync Result Encounter NOMS External Department Unsolicited Roula Grullon PA 04/30/2025 9:50 AM EDTRoutine [facility] G[facility]elle OBPATRICIAN [address] [place] [address] Roula Grullon PA Second trimester ([facility]); 24 weeks gestation of ([facility]); Hypertension, unspecified type; Seizure ([facility]); Diabetes mellitus pijdafmlv76/13/2025amb flowsheet [facility] [address] [place] [address] Roula Grullon PA 04/29/20250944Txepcd17/01/2025Refill [facility] [address] [place] [address] Lisa Chen, Secondary xinaplwvgyxh26/20/2025linisync Result Encounter NOMS External Department Unsolicited Roula Grullon PA 04/04/2025 3:10 PM EDTRoutine [facility]S Giselle LAYTON [address] [place] [address] Lisa Chen, 20 weeks gestation of ([facility]); Second trimester ([facility])04/04/2025linisync Result Encounter NOMS External Department Unsolicited Lisa Chen, 04/04/2025linisync Result Encounter NOMS External Department Unsolicited Lisa Chen, 03/28/20258585Qywmwd02/05/2025Orders Only [facility]elle OBDENI [address] [address] Damaris Agosto MA from Last 3 Months Social History Tobacco UseTypesPacks/DayYears UsedDateSmoking Tobacco: Never Assessed Estimated Date of ValpbkvkOuunbnrjIoo66/02/2026ased on last menstrual period of 11/13/2024Sex and Gender InformationValueDate RecordedSex Assigned at BirthFemale 12/21/2022 8:22 PM EDTLegal KzuFrhadu19/15/2023 11:40 PM EDTGender Identity Ztyytq4612/21/2022 8:22 PM EDTSexual EeifjtrstqvShubwquk42/05/2023 8:22 PM EDT Last Filed Vital Signs Vital SignReadingTime TakenCommentsBlood Pjwxejok736/7006/13/2025 3:10 PM EST Pulse--Temperature--Respiratory Rate--Oxygen Saturation--Inhaled Oxygen Concentration--Imzzam17.4 kg (190 lb 8 oz)06/13/2025 3:10 PM KOQXbvjha508.3 cm (5' 9 )11/16/2022 12:00 PM EDTBody Mass Index28.13011/16/2022 12:00 PM EDT Plan of Treatment DateTypeDepartmentCare Team (Latest Contact Info)Ogkuyevbgxr36/10/2025 3:00 PM ESTRoutine [facility] [address] [place] [phone] Lisa Chen DO [address] [place] [address] Health MaintenanceDue DateLast DoneCommentsHPV/Dpniya144COVID-19 Vaccine ( season), 01/08/2021Influenza Vaccine (#1) 51, 04/21/2022, 04/18/2021, Additional history existsCervical Cancer Hfcpztebs26/20/2028Pap Smear, 03/09/2023neumococcal Vaccine: Pediatrics (0 to 5 Years) and At-Risk Patients (6 to 64 Years)Aged Out No longer eligible based on patient's age to complete this topic Goals GoalPatient Goal TypeAssociated ProblemsRecent ProgressPatient-Stated?Author Reminders Care PlanOB RemindersNoOpen Scheduling, Background Procedures Procedure NamePriorityDate/TimeAssociated DiagnosisCommentsTRANSFERRINRoutine 06/15/2025 2:57 PM EST CCF VFEAVKJNKepvasl01/28/2025 2:57 PM EST POCT URINALYSIS TPBYJPCPWenqdpl08/26/2025 3:11 PM EST Third trimester ([facility]) US OB FOLLOW UP TRANSABDOMINAL RFDZGLDRTtbrgyq08/26/2025 3:02 PM EST Hypertension, unspecified type Seizure (HCC) TBH UA (CLEAN/CATCH) MAMMOGRAPHY SUPERVISOR/MICRO IF IND.Ovyvamc5406/12/2025 4:40 PM EST POCT URINALYSIS ZLRJAGPDWlqjqww15/11/2025 11:46 AM EST 28 weeks gestation of ([facility]) Third trimester ([facility]) GLUCOSE 1 SPYNNmvulai64/01/2025 12:28 PM EDT ALL CBC WITH AUTO HLYUFgeuhwx15/01/2025 12:28 PM EDT POCT URINALYSIS DUOPUUCJXbwiili23/13/2025 10:14 AM EDT Second trimester ([facility]) AFP, SERUM, OPEN SPINA CHAJCRGjpuqew08/20/2025 10:31 AM EDT POCT URINALYSIS MDPRVVZJDvohahu71/17/2025 3:20 PM EDT 20 weeks gestation of ([facility]) Second trimester ([facility]) US OB EVZNCWV0604/04/2025 9:12 AM EDT US OB CERVICAL ADHVKC5804/04/2025 9:12 AM EDT PAP HNSTUDbtjiou28/20/2025 12:00 AM EDTfrom Last 3 Months or Most Recently Relevant to Health Maintenance Results * (ABNORMAL) TRANSFERRIN (06/15/2025 2:57 PM EST)ComponentValueRef RangeTest MethodAnalysis TimePerformed AtPathologist ZtslkgdugVXSQPEIYVTX592(A)192 - 364 mg/dLTBHComment: Performed at: ??[facility] - [facility] [address] ??[id number] Insole Rounder: Jose Fallon PhD, Phone: ??[phone] Specimen (Source)Anatomical Location / LateralityCollection Method / Volume Collection TimeReceived Time06/15/2025 2:57 PM EST06/15/2025 2:59 PM EST Narrative CLINISYNC - 06/16/2025 7:07 AM EST Authorizing ProviderResult TypeResult StatusAmy Wesley PALAB BLOOD ORDERABLES Final ResultPerforming OrganizationAddressCity/State/ZIP CodePhone Number CLINISYNC [facility] * (ABNORMAL) CCF FERRITIN (06/15/2025 2:57 PM EST)ComponentValueRef RangeTest MethodAnalysis TimePerformed AtPathologist SignatureFERRITIN6.0(L)8.0 - 252.0 ng/mLTBHSpecimen (Source)Anatomical Location / LateralityCollection Method / VolumeCollection TimeReceived Time06/15/2025 2:57 PM EST06/15/2025 2:59 PM EST Narrative CLIN[facility]YNC - 06/15/2025 3:40 PM EST Authorizing ProviderResult TypeResult StatusAmy Mitchel PACLINISYNCFinal Result Performing OrganizationAddressCity/State/ZIP CodePhone Number CLINISYNC [facility] * (ABNORMAL) POCT urinalysis dipstick manually resulted [...] 3:11 PM EST Narrative Authorizing ProviderResult TypeResult StatusAmy [facility] TEST ENTER/EDIT ORDERABLESFinal Result * US OB follow up transabdominal approach [...] BY: Michael Eid MD Authorizing ProviderResult TypeResult StatusCorechristina Chen [facility] OB US PROCEDURES Final Result * (ABNORMAL) TBH UA (CLEAN/CATCH) MAMMOGRAPHY SUPERVISOR/MICRO IF IND. (06/12/2025 4:40 PM EST) ComponentValueRef [...] 06/12/2025 5:32 PM EST Authorizing ProviderResult TypeResult StatusCorechristina Chen DOCLINISYNCFinal Result Performing OrganizationAddressCity/State/ZIP CodePhone Number CLINISYNC [facility] * GLUCOSE 1 HOUR (05/19/2025 12:28 PM EDT)ComponentValueRef RangeTest Method Analysis TimePerformed AtPathologist SignatureGLUCOSE 1 BFTO134<130 mg/dLTBH Specimen (Source)Anatomical Location / LateralityCollection Method / Volume Collection TimeReceived Time05/19/2025 12:28 PM EDT107/19/2024 12:29 PM EDT Narrative CLINISYNC - 05/19/2025 1:15 PM EDT Authorizing ProviderResult TypeResult StatusAmy Wesley PALAB BLOOD ORDERABLES Final ResultPerforming OrganizationAddressCity/State/ZIP CodePhone Number CLINISYNC [facility] * (ABNORMAL) ALL CBC WITH AUTO DIFF (05/19/2025 12:28 PM EDT)ComponentValueRef RangeTest MethodAnalysis TimePerformed AtPathologist SignatureTBH WBC9.84.0 - 11.0 10 3/uLTBHTBH RBC3.21(L)4.20 - 5.40 10 6/uLTBHTBH HGB10.2(L)12.0 - 16.0 g/dLTBHTBH HCT30.2(L)36.0 - 48.0 %TBHTBH MCV94.181.0 - 99.0 fLTBHTBH MCH31.8 26.7 - 34.0 pgTBHTBH MCHC33.829.9 - 35.2 g/dLTBHTBH RDW12.311.0 - 15.0 %TBHTBH HJW380406 - 450 10 3/uLTBHTBH MPV8.9(L)9.5 - 13.5 [...] 12:34 PM EDT Authorizing ProviderResult TypeResult StatusAmy Mitchel PACLINISYNCFinal Result Performing OrganizationAddressCity/State/ZIP CodePhone Number CLINISYNC [facility] * AFP, SERUM, OPEN SPINA BIFIDA (04/07/2025 10:31 AM EDT)ComponentValueRef Range Test MethodAnalysis TimePerformed AtPathologist SignatureRESULTSReport.TBHTEST RESULTS:*Screen Negative*.TBHGEST. AGE ON COLLECTION DATE20.7. weeksTBHGESTAT. AGE BASED ONLMP.TBHComment: Recalculations are not recommended when gestational dating by LMP and ultrasound are within 10 days. MATERNAL AGE AT EDD31.8. yrTBHRACECaucasian.BDIGBNPQJ086. lbsTBHINSULIN DEP DIABETESNo.TBHMULTIPLE GESTATIONNo.TBHAFP VALUE45.0. ng/mLTBHAFP MOM0.82.TBHOSBR RISK 1 ZA42060.TBHINTERPRETATIONComment.TBHComment: Interpretation: Screen Negative This result is screen [...] Customer Services to discuss available options. ??The [employer] recommends amniocentesis be offered to women age 35 and older. COMMENT:Comment.TBHComment: Jeny Avila, Ph.D., [facility] Director References: Available Upon Request. Multiples Of Median Cutoffs ?For AFP Elevations Becerra ?? 2.5 ? Black ?2.8 IDD ? 2.0 ? Twins ?4.5 ?Abbreviation Definitions IDD - Insulin Dep Diabetes OSBR - Open Spina Bifida Risk For further inquiries contact [employer] at [phone]. This test was developed and its performance characteristics determined by [facility]. It has not been cleared or approved by the Food and Drug Administration. Performed at: ??[facility] - [facility] [address], [place] ??[id number] Insole Rounder: Abdulaziz Aquino [facility], Phone: ??[phone] Specimen (Source)Anatomical Location / LateralityCollection Method / Volume Collection TimeReceived Time04/07/2025 10:31 AM EDT04/07/2025 10:35 AM EDT Narrative CLINISYNC - 04/09/2025 6:08 PM EDT N N LMP [id number] 2 16 N 1 Y 183 N N N N N White/ Authorizing ProviderResult TypeResult StatusAmy Mitchel PALAB BLOOD ORDERABLES Final ResultPerforming OrganizationAddressCity/State/ZIP CodePhone Number CLINISYNC [facility] * OB CERVICAL LENGTH (04/04/2025 9:12 AM EDT)Anatomical RegionLaterality ModalityOtherSpecimen (Source)Anatomical Location / LateralityCollection Method / VolumeCollection TimeReceived Time04/04/2025 9:12 AM EDT Narrative 04/04/2025 9:14 AM EDT [facility] ?[address] ? [place] [address] ? Ultrasound Report ? Signed ? Patient: PRINCESS HUNTER ?MR#: [id number] ?? : 1995 ?Acct:[id number] ?? Age/Sex: 29 / F ?ADM Date: 04/03/25 ?? Loc: US ? Attending Dr: Lisa Chen D.O. ? Ordering Physician: Lisa Chen D.O. ?? Date of Service: 04/03/25 ?? Procedure(s): US OB cervical length ?? Accession Number(s): [id number] ? cc: Lisa Chen D.O.; KOFFI URIARTE M.D. ? [facility] ? [address] ? [place] [address] ? Patient Name: ?? PRINCESS A DALE ? MRN: [id number] ? date: 1995 ?Sex: F ?? Assigned Patient Location: US ?? Current Patient Location: ? Accession/Order Number: [id number] ?? Exam Date: 04/03/2025 ??18:53 ?Report Date: [...] ?? 4 extremities were surveyed by the replanter and no abnormalities were ?? reported. ??The [...] Dictation Location: RADIO-PC-30 ? Electronically authenticated by: [id number] ??Y ?? Date: 04/04/2025 ??09:12 ? Dictated By: ?Cyndi Pisano M.D. ? Signed By: ?04/04/25 0914 ? DD/ 0912 ? TD/TT: ? Manager Council: Procedure Note Radiology, Radiologist, - 04/04/2025 [place] [address] Ultrasound Report Signed Patient: PRINCESS HUNTER AMR#: [id number] : 1995Acct:[id number] Age/Sex: 29 FADM Date: 04/03/25 Loc: US Attending Dr: Lisa Chen D.O. Ordering Physician: Lisa Chen D.O. Date of Service: 04/03/25 Procedure(s): US OB cervical length Accession Number(s): [id number] cc: Lisa Chen D.O.; KOFFI URIARTE M.D. [facility] [place] [id number] Patient Name: PRINCESS HUNTER MRN: [id number] date: 1995 Sex: F Assigned Patient Location: US Current Patient Location: Accession/Order Number: [id number] Exam Date: 04/03/2025 18:53 Report Date: 04/04/2025 [...] andall 4 extremities were surveyed by the replanter and no abnormalities were reported. The stomach, [...] Pisano M.D. 04/04/2025 9:12 AM Dictation Location: [facility] Electronically authenticated by: [id number] Y Date: 509:12 Dictated By: Cyndi Pisano M.D. Signed By:04/04/2514 DD/ 1 TD/TT: Manager Council: Authorizing ProviderResult TypeResult StatusCorey April DOCLINISYNC IMAGINGFinal Result * OB ANATOMY (04/04/2025 9:12 AM EDT)Anatomical RegionLateralityModalityOther Specimen (Source)Anatomical Location / LateralityCollection Method / Volume Collection TimeReceived Time04/04/2025 9:12 AM EDT Narrative 04/04/2025 9:14 AM EDT [facility] ?[address] ? [place] [address] ? Ultrasound Report ? Signed ? Patient: PRINCESS HUNTER ?MR#: [id number] ?? : 1995 ?Acct:[id number] ?? Age/Sex: 29 / F ?ADM Date: 04/03/25 ?? Loc: US ? Attending Dr: Lisa Chen D.O. ? Ordering Physician: Lisa Chen D.O. ?? Date of Service: 04/03/25 ?? Procedure(s): US OB anatomy ?? Accession Number(s): [id number] ? cc: Lisa Chen D.O.; KOFFI URIARTE M.D. ? [facility] ? [address] ? [place] [address] ? Patient Name: ?? PRINCESS HUNTER ? MRN: [facility]:[id number] ? date: 1995 ?Sex: F ?? Assigned Patient Location: US ?? Current Patient Location: ? Accession/Order Number: [id number] ?? Exam Date: 04/03/2025 ??18:53 ?Report Date: [...] ?? 4 extremities were surveyed by the replanter and no abnormalities were ?? reported. ??The [...] Dictation Location: RADIO-PC-30 ? Electronically authenticated by: [id number] ??Y ?? Date: 04/04/2025 ??09:12 ? Dictated By: ?Cyndi Pisano M.D. ? Signed By: ?04/04/25 09 ? DD/ 0912 ? TD/TT: ? Manager Council: Procedure Note Radiology, Radiologist, MD - 04/04/2025 [place] [address] Ultrasound Report Signed Patient: PRINCESS HUNTER AMR#: [id number] : 1995Acct:[id number] Age/Sex: Date: 04/03/25 Loc: US Attending Dr: Lisa Chen D.O. Ordering Physician: Lisa Chen D.O. Date of Service: 04/03/25 Procedure(s): US OB anatomy Accession Number(s): [id number] cc: Lisa Chen D.O.; KOFFI URIARTE M.D. [facility] [place] [id number] Patient Name: PRINCESS HUNTER MRN: [id number] date: 1995 Sex: F Assigned Patient Location: US Current Patient Location: Accession/Order Number: [id number] Exam Date: 04/03/2025 18:53 Report Date: 04/04/2025 [...] andall 4 extremities were surveyed by the replanter and no abnormalities were reported. The stomach, [...] Pisano M.D. 04/04/2025 9:12 AM Dictation Location: [facility] Electronically authenticated by: [id number] Y Date: 509:12 Dictated By: Cyndi Pisano M.D. Signed By:04/04/2514 DD/ 1 TD/TT: Manager Council: Authorizing ProviderResult TypeResult StatusCorey April DOCLINISYNC IMAGINGFinal Result * Pap Smear (03/07/2025 12:00 AM EDT)Specimen (Source)Anatomical Location / LateralityCollection Method / VolumeCollection TimeReceived TimeSwabCervical swab / Unknown Narrative Authorizing ProviderResult TypeResult StatusAmy [facility] CYTOLOGY ORDERABLES Final ResultPerforming OrganizationAddressCity/State/ZIP CodePhone Number EXTERNAL LAB from Last 3 Months or Most Recently Relevant to Health Maintenance Additional Health Concerns Active ProblemsNoted DateDiagnosed DateOB Qsfvlxjrb64/29/2023 Insurance Care Teams Team MemberRelationshipSpecialtyStart [place] [address] [place], [place] [id number] PCP - GeneralFamily Medicine01/14/23
--- OUTSIDE RECORDS SUMMARY | 2025-06-20 07:13 | XMS_ITS | Encounter Summary ---
Author Organization [facility] Address [address] [place] [address] Care Team Providers Care Structural Steel Erection Supervisor Name Role Phone Suzanne Uriarte MD Primary Care Provider +1- [phone] Encounter Details DateTypeDepartmentCare Team (Latest Contact Info)Bkftpqkzyhx20/26/2025bstract [facility] G[facility]elle [facility] [address] [address] Willis Chen DO [address] [place] [address] [place], [place] [address] Social History Tobacco UseTypesPacks/DayYears UsedDateSmoking Tobacco: Never Assessed Estimated Date of NmquvsvnSyzpweokFks13/02/2026ased on last menstrual period of 11/13/2024Sex and Gender InformationValueDate RecordedSex Assigned at BirthFemale 12/21/2022 8:22 PM EDTLegal IlrPzddfr15/15/2023 11:40 PM EDTGender Identity Tdffnl2112/21/2022 8:22 PM EDTSexual HsxsubispyuMsccqjlq23/05/2023 8:22 PM EDT documented as of this encounter Plan of Treatment DateTypeDepartmentCare Team (Latest Contact Info)Zrqaycrxgjh41/10/2025 3:00 PM ESTRoutine [facility] Giselle LAYTON [address] [place] [address] Willis Chen DO [address] [place] [address] documented as of this encounter Goals GoalPatient Goal TypeAssociated ProblemsRecent ProgressPatient-Stated?Author Reminders Care PlanOB RemindersNoOpen Scheduling, Backgrounddocumented as of this encounter Visit Diagnoses Not on filedocumented in this encounter Additional Health Concerns Active ProblemsNoted DateDiagnosed DateOB Jqxezoowz73/29/2023 documented as of this encounter Care Teams Team MemberRelationshipSpecialtyStart [place] [address] [place] [address] PCP - GeneralFamily Medicine01/14/23documented as of this encounter
--- OUTSIDE RECORDS SUMMARY | 2025-06-20 07:13 | XMS_ITS | Encounter Summary ---
Author Organization [facility] Address [address] [place] [address] Phone Care Team Providers Care Oil Well Gun Perforator Operator Name Role Phone Suzanne Uriarte MD Primary Care Provider + Encounter Details DateTypeDepartmentCare Team (Latest Contact Info)Qljrtkpirxh42/01/2025Orders Only [facility] [address] [phone] Mei Soto MA Seizure (Multi) Social History Tobacco UseTypesPacks/DayYears UsedDateSmoking Tobacco: NeverPassive Smoke Exposure: NeverSmokeless Tobacco: CurrentAlcohol UseStandard Drinks/WeekComments Not Currently0 (1 standard drink = 0.6 oz pure alcohol)SociallyAUDIT-CAnswerDate RecordedQ1: How often do you have a drink containing alcohol?Never05/03/2024Q2: How many drinks containing alcohol do you have on a typical day when you are drinking?Patient does not drink05/03/2024Q3: How often do you have six or more drinks on one occasion?Never4PHQ-2AnswerDate RecordedPatient Health Questionnaire-2 Uozjz515/16/2024CommentsNoSex and Gender Information ValueDate RecordedSex Assigned at BirthNot on fileLegal OlxZgrupl24/25/2022 10:33 PM ESTGender IdentityNot on fileSexual OrientationNot on filedocumented as of this encounter Plan of Treatment DateTypeDepartmentCare Team (Latest Contact Info)Vwkzmufsmkc25/03/2025 3:00 PM ESTTelemedicine [facility] [address] [phone] Laila Jin, DOUBLE BACK OPERATOR-PARKING ANALYST [address] [place] [address] documented as of this encounter Visit Diagnoses Diagnosis Seizure (Multi) Other convulsions documented in this encounter Additional Health Concerns AssessmentNoted TimeA fall risk assessment has been completed for the patient 05/03/2024 9:18 AM EDTdocumented as of this encounter Care Teams Team MemberRelationshipSpecialtyStart [place] [address] [place] [address] PCP - General08/14/20documented as of this encounter
--- OUTSIDE RECORDS SUMMARY | 2025-06-20 07:13 | XMS_ITS | Encounter Summary ---
Author Organization [facility] Address [address] [facility] [place] [address] Care Team Providers Care Medical Clerical Assistant Name Role Phone Suzanne Uriarte MD Primary Care Provider +1- [phone] Encounter Details DateTypeDepartmentCare Team (Latest Contact Info)Simucvkdeav54/25/2025Telephone [facility] O[facility] [address] [place] [address] Willis Chen, [address] [place] [address] Social History Tobacco UseTypesPacks/DayYears UsedDateSmoking Tobacco: Never Assessed Estimated Date of HskvcvixKfryesfbYqr68/02/2026ased on last menstrual period of 11/13/2024Sex and Gender InformationValueDate RecordedSex Assigned at BirthFemale 12/21/2022 8:22 PM EDTLegal NggUphcba60/15/2023 11:40 PM EDTGender Identity Ysmybf3412/21/2022 8:22 PM EDTSexual UsdstolmdbkZzszdcxu03/05/2023 8:22 PM EDT documented as of this [...] Plan of Treatment DateTypeDepartmentCare Team (Latest Contact Info)Bkrnwuljfna82/10/2025 3:00 PM ESTRoutine [facility] Zachariah OBGYN [address] [place] [phone] Willis Chen, [address] [place] [address] documented as of this encounter Goals GoalPatient Goal TypeAssociated ProblemsRecent ProgressPatient-Stated?Author Reminders Care PlanOB RemindersNoOpen Scheduling, Backgrounddocumented as of this encounter Visit Diagnoses Not on filedocumented in this encounter Additional Health Concerns Active ProblemsNoted DateDiagnosed DateOB Ruhklgqwu11/29/2023 documented as of this encounter Care Teams Team MemberRelationshipSpecialtyStart [place] [address] [place] [address] PCP - GeneralFamily Medicine01/14/23documented as of this encounter
== END 2025-06-20 07:08 | disposition home or self-care (01) ==
LOC: LAB 07:09
PROVIDERS: PCP Family Medicine
DX: R56.9 Unspecified convulsions (principal)
CPT/HCPCS: 36415; 80175

== ENCOUNTER 2025-07-04 18:42 | Outpatient (OUT) | payer BC, SELFPAY ==
--- OUTSIDE RECORDS SUMMARY | 2025-05-29 11:40 | XMS_ITS | Encounter Summary ---
Author Organization [facility] Address [address] [place] [address] Care Team Providers Care Drill Grinder Name Role Phone Suzanne Uriarte MD Primary Care Provider +1- [phone] Reason for Visit * ReasonCommentsRoutine Visit Encounter Details DateTypeDepartmentCare Team (Latest Contact Info)Odgnghfqvna22/11/2025 11:40 AM ESTRoutine [facility] [address] [place] [address] Willis Chen DO [address] [place], [place] [phone] 28 weeks gestation of ([facility]); Third trimester ([facility]); Hypertension, unspecified type; Seizure ([facility]); Hemoglobin low Social History Tobacco UseTypesPacks/DayYears UsedDateSmoking Tobacco: Never Assessed Estimated Date of LumtzcmpWzzzzcnzKgo41/02/2026ased on last menstrual period of 11/13/2024Sex and Gender InformationValueDate RecordedSex Assigned at BirthFemale 12/21/2022 8:22 PM EDTLegal DosXkjbrr01/15/2023 11:40 PM EDTGender Identity Ledzll8312/21/2022 8:22 PM EDTSexual CrkuspolokmOlzgloml90/05/2023 8:22 PM EDT documented as of this encounter Last Filed Vital Signs Vital SignReadingTime TakenCommentsBlood Anenrboq782/6005/29/2025 11:37 AM EST Pulse--Temperature--Respiratory Rate--Oxygen Saturation--Inhaled Oxygen Concentration--Vyctws20.8 kg (195 lb 12.8 oz)05/29/2025 11:37 AM ESTHeight--Body Mass Index28.9105 12:00 PM EDTdocumented in this encounter Progress Notes * Cyndi Andrade, ADULT BASIC EDUCATION MANAGER - 05/29/2025 11:40 AM EST Reason for [...] Problems Diagnosis Date Noted Hypertension 01/14/2023 Seizure ([facility]) 07/09/2021 Breech presentation, no version ([facility]) 07/29/2023 Resolved Ambulatory Problems Diagnosis Date Noted [...] nursing note reviewed. Exam conducted with a school year nanny present. Vitals: Estimated body mass index is 28.91 kg/m?? as calculated from the following: Height as of 11/16/22: 5' 9 . Weight as of this encounter: 195 lb 12.8 oz. BP: 100/60 Patient's last menstrual period was 11/13/2024. Assessment/Plan ICD-10-CM 1. 28 weeks gestation of ([facility]) Z3A.28 POCT urinalysis dipstick manually resulted 2. Third trimester ([facility]) Z34.93 POCT urinalysis dipstick manually resulted 3. Hypertension, unspecified type I10 4. Seizure ([facility]) R56.9 Return OB: Patient presents today for [...] Plan of Treatment DateTypeDepartmentCare Team (Latest Contact Info)Fjnvvsmltqa18/22/2025 4:00 PM ESTRoutine [facility] [address] [place] [address] Roula Grullon PA [address] [place], [place] [phone] 07/23/2025 3:00 PM ESTAncillary Procedure [facility] [address] [place] [address] NameTypePriorityAssociated DiagnosesOrder ScheduleUS OB follow up transabdominal approachImagingRoutine Hypertension, unspecified type Seizure (HCC) 4 Occurrences starting 05/29/2025 until 09/26/2025, 1 completeddocumented as of this encounter Goals GoalPatient Goal TypeAssociated ProblemsRecent ProgressPatient-Stated?Author Reminders Care PlanOB RemindersNoOpen Scheduling, Backgrounddocumented as of this encounter Procedures Procedure NamePriorityDate/TimeAssociated DiagnosisCommentsPOCT URINALYSIS DLSITVGQZgsvkbj33/11/2025 11:46 AM EST 28 weeks gestation of ([facility]) Third trimester ([facility]) documented in this encounter Results * OB [...] 50 Jae/mcLpH, UA6.55 - 9Protein, UAPositiveNegative - 1999(20) ++++ mg/dLUrobilinogen, UA1.00.2 - 12 mg/dLLeukocytes, UAPositive Negative - 500+++ Marsha/mcLComment:3+Nitrite, UANegativeNegative - Positive Specimen (Source)Anatomical Location / LateralityCollection Method / Volume Collection TimeReceived XoenSdcgn26/11/2025 11:46 AM EST Narrative Authorizing ProviderResult TypeResult StatusCorey April DOPOINT OF CARE TEST ENTER/EDIT ORDERABLESFinal Result documented in this encounter Visit Diagnoses Diagnosis 28 weeks gestation of ([facility]) Third trimester ([facility]) state, incidental Hypertension, unspecified type Seizure (HCC) Other convulsions Hemoglobin low Unspecified anemia Hypertension, unspecified type Seizure (HCC) Other convulsions documented in this encounter Additional Health Concerns Active ProblemsNoted DateDiagnosed DateOB Yavleeoox53/29/2023 documented as of this encounter Care Teams Team MemberRelationshipSpecialtyStart [place] [address] [place], [place] [phone] PCP - GeneralFamily Medicine01/14/23documented as of this encounter
--- OUTSIDE RECORDS SUMMARY | 2025-06-20 15:00 | XMS_ITS | Encounter Summary ---
Author Organization [facility] Address [address] [place] [address] Phone Care Team Providers Care Housekeeping Room Inspector Name Role Phone Suzanne Uriarte MD Primary Care Provider + Reason for Visit * ReasonCommentsSeizuresPt is currently and had a seizure 06/12 this is her first seizure since she first started coming to this practice she is trying to see if she is going to stay on the 150mg of Lamictal which she states she feels fine on she did get a blood draw today for the Lamotrigine level at [facility] which we can try to request record for. Encounter Details DateTypeDepartmentCare Team (Latest Contact Info)Dpvgfubxrkd34/03/2025 3:00 PM ESTTelemedicine [facility] [address] [place] [address] Dr Chiu [address] [phone] Laila Jin, BILLING SUPERVISOR-PRICE ANALYST [address] [place] [address] Seizure (Multi) (Primary Dx) Discharge Disposition: Home Social History Tobacco UseTypesPacks/DayYears UsedDateSmoking Tobacco: NeverPassive Smoke Exposure: NeverSmokeless Tobacco: CurrentAlcohol UseStandard Drinks/WeekComments Not Currently0 (1 standard drink = 0.6 oz pure alcohol)SociallyPHQ-2AnswerDate RecordedPatient Health Questionnaire-2 Jqazr367/03/2025AUDIT-CAnswerDate RecordedQ1: How often do you have a drink containing alcohol?Never06/20/2025Q2: How many drinks containing alcohol do you have on a typical day when you are drinking?Patient does not drink06/20/2025Q3: How often do you have six or more drinks on one occasion?Never06/20/2025CommentsNoSex and Gender InformationValueDate RecordedSex Assigned at BirthNot on fileLegal SexFemale 06/12/2022 10:33 PM ESTGender IdentityNot on fileSexual OrientationNot on file documented as of this encounter Functional Status * Over the past 2 weeks, how often have you been bothered by any of the following problems?QuestionAnswerDate of AssessmentAuthorLittle interest or pleasure in doing thingsNot at all06/20/2025 2:54 PM Mei Serrato MAFeeling down, depressed, or hopelessNot at all06/20/2025 2:54 PM Mei Sanon MA * AUDIT-C ScoreAnswerDate of OwvrppmxpiDghkji074/03/2025 2:54 PM Mei Serrato MA * Skip to questions 9-10?AnswerDate of MlpcwzyasaMxqeie872/03/2025 2:54 PM Mei Sanon MA * Alcohol UseQuestionAnswerDate of AssessmentAuthorQ1: How often do you have a drink containing alcohol?Never06/20/2025 2:54 PM Mei Serrato MA Q2: How many drinks containing alcohol do you have on a typical day when you are drinking?Patient does not drink06/20/2025 2:54 PM Mei Serrato MAQ3: How often do you have six or more drinks on one occasion?Never 06/20/2025 2:54 PM Mei Serrato MA * Audit-C ScoreAnswerDate of BujstfjwmsKkmicl429/03/2025 2:54 PM Mei Serrato MA * Over the past 2 weeks, how often have you been bothered by any of the following problems?QuestionAnswerDate of AssessmentAuthorLittle interest or pleasure in doing thingsNot at all06/20/2025 2:54 PM Mei Serrato MAFeeling down, depressed, or hopelessNot at all06/20/2025 2:54 PM Mei Sanon, MAPatient Health Questionnaire-2 Rdwwu35608/21/2024 2:54 PM Mei Serrato MA documented as of this encounter Progress Notes * Laila Jin, JOEL-PRICE ANALYST - 06/20/2025 3:00 PM EST Subjective Kavya Guerrero is a 29 y.o. female. Seizures Consent for telemedicine services- I performed this visit using real-time telehealth tools, including audio/video connection between Kavya Guerrero (at home) and Laila Jin NP (at office). Follow up appointment for recent visit to [facility] ED. She presented to [facility] on 06/12 after having a nocturnal seizure. Spouse described it to me as clenching, jerking, and gurgling that lasted about 6 minutes before EMS arrival. This was her 3rd seizure with last one being about 3 years ago. Spouse states pt did not sustain a tongue injury or incontinence. She was stabilized at the ED andtransferred to [facility] in [place]. She has a known seizure disorder, currently 30 weeks , and was on Lamotrigine 100mg BID prior to hospital stay. Lamotrigine was increased to 150mg BID. Lamotrigine levels are not available in this system; she had one drawn out of this healthcare system this morning. She is going to let me know what the lamotrigine levels are (the one from the hospital and the one drawn this morning) once she gets the results. Today, pt states that she has had no further seizure activity. She has been tolerating the increased dose of lamotrigine without any side effects, specifically headaches, nausea, numbness/tingling. She denies vision changes, dizziness, speech difficulty, limb weakness. Objective Neurological Exam Mental Status Awake, alert and oriented to person, place and time. Speech is normal. Language is fluent with no aphasia. Cranial Nerves CN VII: Full and symmetric facial movement. CN XII: Tongue midline without atrophy or fasciculations. Motor Strength is 5/5 throughout all four extremities. Sensory Light touch is normal in upper and lower extremities. Coordination Right: Zuyjji-qf-fevs normal.Left: Hvxvnb-go-qghw normal. Physical Exam Neurological: Motor: Motor strength is normal. Psychiatric: Speech: Speech normal. Will retrieve records from [facility] and addend this note when received. Lab Results Component Value Date WBC 5.5 09/12/2024 HGB 12.7 09/12/2024 HCT 38.8 09/12/2024 MCV 86.8 09/12/2024 PLT 260 09/12/2024 Chemistry Lab Results Component Value Date/Time NA 137 09/12/2024 1343 K 4.5 09/12/2024 1343 CL 102 09/12/2024 1343 CO2 28 09/12/2024 1343 BUN 7 09/12/2024 1343 CREATININE 0.86 09/12/2024 1343 Lab Results Component Value Date/Time CALCIUM 9.6 09/12/2024 1343 ALKPHOS 60 09/12/2024 1343 AST 12 09/12/2024 1343 ALT 14 09/12/2024 1343 BILITOT 0.4 09/12/2024 1343 No MRI brain results found for the past 12 months No EEG results found for the past 12 months Assessment/Plan Diagnoses and all orders for this visit: Seizure (Multi) - Pt presented to outside hospital ED on 06/12 after experiencing a nocturnal seizure lasting about6 minutes. No tongue trauma or incontinence. No further seizures since hospital discharge. - Retrieve records and lamotrigine levels from [facility] system. - For now, pt is to keep taking Lamotrigine 150mg BID as she is experiencing no side effects. - Will adjust pending lamotrigine level drawn this morning. - Continue seizure precautions- no driving, operating heavy machinery, baths, swimming alone, or climbing ladders - Follow up with me in 3 months or sooner if needed. documented in this encounter Plan of Treatment DateTypeDepartmentCare Team (Latest Contact Info)Egmzalojelx26/18/2026 2:00 PM EDTOffice Visit [facility] [address] [place] [address] Dr Chiu [address] [phone] Laila Jin, BILLING SUPERVISOR-PRICE ANALYST [address] [place] [address] documented as of this encounter Visit Diagnoses Diagnosis Seizure (Multi)- Primary Other convulsions documented in this encounter Additional Health Concerns AssessmentNoted TimeA fall risk assessment has been completed for the patient 06/20/2025 2:54 PM ESTdocumented as of this encounter Care Teams Team MemberRelationshipSpecialtyStart [place] [address] [address] PCP - General08/14/20documented as of this encounter
--- OUTSIDE RECORDS SUMMARY | 2025-06-27 15:00 | XMS_ITS | Encounter Summary ---
Author Organization [facility] Address [address] [place] [address] Care Team Providers Care Community Case Manager Name Role Phone Suzanne Uriarte MD Primary Care Provider +1- [phone] Reason for Visit * ReasonCommentsRoutine Visit Encounter Details DateTypeDepartmentCare Team (Latest Contact Info)Gongmaszyzk54/10/2025 3:00 PM ESTRoutine [facility] [address] [place] [place] [phone] Willis Chen DO [address] [place] [place], [place] [phone] Third trimester ([facility]); 32 weeks gestation of ([facility]); Seizure (HCC); Hypertension, unspecified type; Antepartum anemia ([facility]); SGA (small for gestational age) ([facility] Social History Tobacco UseTypesPacks/DayYears UsedDateSmoking Tobacco: Never Assessed Estimated Date of ReddzgwiUovvoewiSfe67/02/2026Based on last menstrual period of 11/13/2024Sex and Gender InformationValueDate RecordedSex Assigned at BirthFemale 12/21/2022 8:22 PM EDTLegal PnhAiudmm52/15/2023 11:40 PM EDTGender Identity Qvneha5212/21/2022 8:22 PM EDTSexual TxxxfwvtlrxIxwsdrfs66/05/2023 8:22 PM EDT documented as of this encounter Last Filed Vital Signs Vital SignReadingTime TakenCommentsBlood Kfinevew123/7606/27/2025 3:16 PM EST Pulse--Temperature--Respiratory Rate--Oxygen Saturation--Inhaled Oxygen Concentration--Rcyqvd49.6 kg (197 lb 8 oz)06/27/2025 3:16 PM [...] Diagnosis Date Noted Hypertension 01/14/2023 Seizure ([facility]) 07/09/2021 Breech presentation, no version ([facility]) 07/29/2023 Resolved Ambulatory Problems Diagnosis Date Noted [...] nursing note reviewed. Exam conducted with a hr business partner consultant present. Vitals: Estimated body mass index is 29.17 kg/m?? as calculated from the following: Height as of 11/16/22: 5' 9 . Weight as of this encounter: 197 lb 8 oz. BP: 122/76 Patient's last menstrual period was 11/13/2024. Assessment/Plan ICD-10-CM 1. Third trimester ([facility]) Z34.93 POCT urinalysis dipstick manually resulted 2. 32 weeks gestation of ([facility]) Z3A.32 3. Seizure ([facility]) R56.9 4. Hypertension, unspecified type I10 5. Antepartum anemia ([facility]) O99.019 6. SGA (small for gestational age) ([facility]) P05.10 Assessment/Plan Return OB: Patient presents [...] for routine OB appointment. Documented by Cyndi Adnrade LPN on behalf of: Willis Chen DO documented in this encounter Plan of Treatment DateTypeDepartmentCare Team (Latest Contact Info)Gkarqwsmktu51/22/2025 4:00 PM ESTRoutine [facility] [address] [place] [address] Roula Grullon PA [address] [place], [place] [phone] 07/23/2025 3:00 PM ESTAncillary Procedure [facility] [address] [place] [address] NameTypePriorityAssociated DiagnosesOrder ScheduleUS biophysical profile w non stress testImagingRoutine Seizure (HCC) Hypertension, unspecified type Antepartum anemia ([facility]) SGA (small for gestational age) ([facility]) Expected: 06/27/2025 (Approximate), Expires: 12/26/2025documented as of this encounter Goals GoalPatient Goal TypeAssociated ProblemsRecent ProgressPatient-Stated?Author Reminders Care PlanOB RemindersNoOpen Scheduling, Backgrounddocumented as of this encounter Procedures Procedure NamePriorityDate/TimeAssociated DiagnosisCommentsPOCT URINALYSIS OKTTKCNKBihtadt40/10/2025 3:20 PM EST Third trimester ([facility]) documented in this encounter Results * (ABNORMAL) [...] Location / LateralityCollection Method / VolumeCollection TimeReceived RxxbDmcov50/10/2025 3:20 PM EST Narrative Authorizing ProviderResult TypeResult StatusCorey April DOPOINT OF CARE TEST ENTER/EDIT ORDERABLESFinal Result documented in this encounter Visit Diagnoses Diagnosis Third trimester ([facility]) state, incidental 32 weeks gestation of ([facility]) Seizure (HCC) Other convulsions Hypertension, unspecified type Antepartum anemia ([facility]) SGA (small for gestational age) ([facility]) Gzuva-mcr-eotcm without mention of malnutrition, unspecified (weight) documented in this encounter Additional Health Concerns Active ProblemsNoted DateDiagnosed DateOB Efxozeirc63/29/2023 documented as of this encounter Care Teams Team MemberRelationshipSpecialtyStart [place] [address] [address] [place], [place] [phone] PCP - GeneralFamily Medicine01/14/23documented as of this encounter
--- OUTSIDE RECORDS SUMMARY | 2025-07-04 18:45 | XMS_ITS | Encounter Summary ---
Author Organization [facility] Address [address] [facility] [place] [address] Care Team Providers Care Training Developer Name Role Phone Suzanne Uriarte MD Primary Care Provider [phone] Encounter Details DateTypeDepartmentCare Team (Latest Contact Info)Pqoqqkltwlx03/03/2025Travel Social History Tobacco UseTypesPacks/DayYears UsedDateSmoking Tobacco: Never Assessed Estimated Date of KfoyskqwBccvzuvtCsq33/02/2026ased on last menstrual period of 11/13/2024Sex and Gender InformationValueDate RecordedSex Assigned at BirthFemale 12/21/2022 8:22 PM EDTLegal ItbYdmlns97/15/2023 11:40 PM EDTGender Identity Aeyaip3612/21/2022 8:22 PM EDTSexual OkjcnpqjghtLmncyksn57/05/2023 8:22 PM EDT documented as of this encounter Plan of Treatment DateTypeDepartmentCare Team (Latest Contact Info)Krgiiwujjqy80/22/2025 4:00 PM ESTRoutine [facility] [address] [place] [address] Roula Grullon PA [address] [place], [facility]11 07/23/2025 3:00 PM ESTAncillary Procedure [facility] [address] [place] [address] documented as of this encounter Goals GoalPatient Goal TypeAssociated ProblemsRecent ProgressPatient-Stated?Author Reminders Care PlanOB RemindersNoOpen Scheduling, Backgrounddocumented as of this encounter Visit Diagnoses Not on filedocumented in this encounter Additional Health Concerns Active ProblemsNoted DateDiagnosed DateOB Nmstmhnmy48/29/2023 documented as of this encounter Care Teams Team MemberRelationshipSpecialtyStart [place] [address] [place], [place] [id number] PCP - GeneralFamily Medicine01/14/23documented as of this encounter
--- OUTSIDE RECORDS SUMMARY | 2025-07-04 18:45 | XMS_ITS | Continuity of Care Document ---
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 Name Role Phone Jose Carlos Lui Jr, MD Emergency Provider Suzanne Uriarte MD Primary Care Provider Bryn Healy DO Attending Provider [phone] Care Teams Patient Care Team Team Status: [...] Legal Sex Female (finding) [facility] 1995Pregnancy StatusYNove2024 Family History Relationship [...] 2025 12:00amUnknownDocosahexaenoic Acid ( Dha) 200 mg capsuleActiveMGPONencompass [facility] 2024 12:00amUnknownLamotrigine 150 mg tablet Xcbytm425LBHPWwafq fcclj4969Pdxuwsru 25th, 2025 12:00amUnknownLamotrigine 100 mg umzfoeQjdwrputdnwq780EZKOFodgrLtugc 2023 11:[facility] 20[facility] 11:39pmLabetalol 200 mg ebwxwhEfibzgoanbfq636ESVZFivna dailyApril 2023 11:00pm[facility] 2024 11:17amOndansetron Hcl 4 mg nxdhxtElumzqnoftfn6RUAQHogvx 8 hours as needed for nausea and bhnfudun649Vmvxv 2023 11:00pmUniversity [facility]als [facility] 2024 11:17amLabetalol 200 mg awwfxrRatdke533IQGORlbqm dailyUniversity Hospitals Conne[facility] 2024 11:17amUnknownAmoxicillin-Pot Clavulanate 875-125 mg duvbuqLdsiqz9XWGQRQsyyp rqqvk350Palhj 2024 12:00amUnknown Relevant Diagnostic Tests and/or Laboratory Data Laboratory Results Test Collection Date/Time Result Date/Time Result Interpretation Reference Range Result Comment Performing Site Corrected White Blood Count June 12, 2025 11:05pm June 12, 2025 11:31pm 9.3 10*3/uL 3.8-11.6F[facility] [id number] [address] [facility] [address] [facility] [address]Dackjenwvkz WBC CountNov2024 11:05pmNov2024 11:31pm9.3 10*3/uL3.8-11.6FGrand [facility] [id number] [address] [facility] [address]Wmc Blood CountNovember 2024 11:05pmNov2024 11:31pm3.20 10*6/uLBelow low normal3.60-5.00[facility] [id number] [address] [facility] [address] [facility] [address]KlbulteshaSfidsxbx 2024 11:05pmNov2024 11:31pm9.7 g/dLBelow low zanjqa88.8-15.4FGrand [facility] [id number] [address] [facility] [address] [facility] [address]BldifegsoiAyukbkim 25th, 2025 11:05pmNov2024 11:31pm28.2 %Below low gxnfue88.0-46.4FGrand [facility] [id number] [address] [facility] [address] [facility] [address]Nafk Corpuscular VolumeNov2024 11:05pmNov2024 11:31pm88.3 zI97-466GogviyeheSt. Rita'S Hospital [facility] [id number] [address] [facility] [address] [facility] [address]Fagg Corpuscular HemoglobinNovember 2024 11:05pmNov2024 11:31pm30.4 pg24.7-34.3FGrand [facility] [id number] [address] [facility] [address]Hrkk Corpuscular Hemoglobin ConcentNovember 2024 11:05pm November 2024 11:31pm34.4 g/dL32.0-35.0[facility] [id number] [address] [facility] [address] [facility] [address]Ezm Cell Distribution WidthNov2024 11:05pmNov2024 11:31pm12.5 %11.9-15.3FGrand [facility] [id number] [address] [facility] [address] [facility] [address]Gtobacuc CountNovember 2024 11:05pmNov2024 11:63ln704 10*3/rC885-048UnyaxuvjkSt. Rita'S Hospital [facility] [id number] [address] [facility] [address] [facility] [address]Eota Platelet VolumeJune 12, 2025 11:05pmJune 12, 2025 11:31pm7.3 fL6.3-10.7FGrand [facility] [id number] [address] [facility] [address]Nrtsiupk Distribution WidthJune 12, 2025 11:05pmNov2024 11:31pm18.67 %0.00-20.00[facility] [id number] [address] [facility] [address]Ubqlhdbdafd (%) (Auto)June 12, 2025 11:05pmNov2024 11:31pm65.1 %.[facility] [id number] [address] [facility] [address]Sskjaxulpjw (%) (Auto)June 12, 2025 11:05pmNov2024 11:31pm25.4 %.[facility] [id number] [address] [facility] [address]Fijzqsmyt (%) (Auto)June 12, 2025 11:05pmNov2024 11:31pm9.2 %.[facility] [id number] [address] [facility] [address]Lfjhajgwdbn (%) (Auto)June 12, 2025 11:05pmNov2024 11:31pm0.1 %.[facility] [id number] [address] [facility] [address]Fndsmtqqs (%) (Auto)June 12, 2025 11:05pmNov2024 11:31pm0.2 %.[facility] [id number] [address] [facility] [address]Vuqtoevoe RBC Relative Count (auto)June 12, 2025 11:05pm June 12, 2025 11:31pm0.1 /100{WBC}0-0.5FGrand [facility] [id number] [address] [facility] [address]Udincypophe # (Auto)June 12, 2025 11:05pmNov2024 11:31pm6.1 10*3/uL1.8-7.7FGrand [facility] [id number] [address] [place] [address]Lymphocytes # (Auto)June 12, 2025 11:05pmJune 12, 2025 11:31pm2.4 10*3/uL1.00-4.8[facility] [id number] [address] [facility] [address]Eqmzbtzva # (Auto)June 12, 2025 11:05pmNov2024 11:31pm0.9 10*3/uLAbove high normal0.0-0.8[facility] [id number] [address] [place] [address]Eosinophils # (Auto)June 12, 2025 11:05pmJune 12, 2025 11:31pm0.0 10*3/uL0.0-0.45[facility] [id number] [address] [place] [address]Basophils # (Auto)June 12, 2025 11:05pmNov2024 11:31pm0.0 10*3/uL0.0-0.2FGrand [facility] [id number] [address] [place] [address]Urine ColorNovember 2024 12:20amNovember 2024 1:06amLight-yellowYellowSt. Rita'S Hospital Ctr [id number] [address] [place] [address]Urine AppearanceNovember 2024 12:20amNovember 2024 1:06amClearClearSt. Rita'S Hospital [facility] [id number] [address] [facility] [address] [facility] [address]Peems Specific GravityNovember 2024 12:20amNovember 2024 1:06am1.0141.001-1.030[facility] [id number] [address] [place], [place] [address]Urine pHNovember 2024 12:20amNovember 2024 1:06am 6.55.0-9.0[facility] [id number] [address] [facility] [address]Bttkw Leukocyte EsteraseNovember 2024 12:20amNovember 2024 1:06am2+Above high normalNegativeSt. Rita'S Hospital [facility]tr [id number] [address] [facility] [address]Txwan NitriteNovember 2024 12:20amNovember 2024 1:06amNegativeNegativeSt. Rita'S Hospital [facility] [id number] [address] [facility] [address]Yqnqd ProteinNovember 2024 12:20amNovember 2024 1:06amTrace mg/dLAbove high normalNegDayton [facility] [id number] [address] [facility] [address]Nabsl Glucose (UA)June 13, 2025 12:20amNovember 2024 1:06amNormal mg/dLNormalSt. Rita'S Hospital [facility]tr [id number] [address] [facility] [address]Lacwr KetonesNovember 2024 12:20amNovember 2024 1:06am1+Above high normalNegativeSt. Rita'S Hospital [facility] [id number] [address] [facility] [address]Zspel UrobilinogenNovember 2024 12:20amNovember 2024 1:06amNormal mg/dLNormalSt. Rita'S Hospital [facility]tr [id number] [address] [facility] [address]Wcznq BilirubinNovember 2024 12:20amNovember 2024 1:06amNegativeNegativeSt. Rita'S Hospital [facility] [id number] [address] [facility] [address]Iakag Occult BloodNovember 2024 12:20amNovember 2024 1:06amNegativeNegativeSt. Rita'S Hospital [facility] [id number] [address] [facility] [address]Smkyw RBCNovember 2024 12:20amNovember 2024 1:32am 1-2 [HPF]0-4FGrand [facility] [id number] [address] [facility] [address] [facility] [address]Mmbxj WBCNovember 2024 12:20amNovember 2024 1:32am 3-4 [HPF]0-4F[facility] [id number] [address] [facility] [address]Acaer WBC ClumpsNovember 2024 12:20amNovember 2024 1:32amOccasional [LPF]Above high normalNone [facility] [id number] [address] [facility] [address] [facility] [address]Umngo Squamous Epithelial CellsNovember 2024 12:20am June 13, 2025 1:22qp0-0 [HPF]Above high normal0-2FGrand [facility] [id number] [address] [facility] [address] [facility] [address]Eyoak BacteriaNovember 2024 12:20amNove2024 1:32am1+ [HPF]Above high normalNone SeenSt. Rita'S Hospital Ctr [id number] [address] [facility] [address]Qcdah Hyaline CastsNovember 2024 12:20amNove2024 1:32amNone [LPF]0-8[facility] [id number] [address] [facility] [address] [facility] [address]Mpdkg MucusNovember 2024 12:20amN2024 1:32amRare [LPF][facility] [id number] [address] [facility] [address]Rkrnrlg LevelNovember 2024 11:05pmNov2024 11:49pm68 mg/dLBelow low flwusl99-380SXK recommended reference rangeRandom Glucose Reference Range is dependent on time and content of last meal. Glucose of more than 200 mg/dL in a nonstressed, ambulatory subject supports the diagnosisof Diabetes Mellitus.[facility] [id number] [address] [facility] [address]Nrvdp Urea NitrogenNovember 2024 11:05pmNov2024 11:49pm8 mg/dL7-[facility] [id number] [address] [facility] [address]XhrnjalsymWlwbdyhd 2024 11:05pmNov2024 11:49pm0.52 mg/dLBelow low normal0.60-1.20[facility] [id number] [address] [facility] [address]Piwkimouk GFR (CKD-EPI)June 12, 2025 11:05pmNov2024 11:49pm> 60.0 mL/MinSt. Rita'S Hospital Ctr [id number] [address] [facility] [address] [facility] [address]Yupvqp LevelNov2024 11:05pmNov2024 11:86wz587 mmol/LBelow low qtyqhr566-438YihqqukmlSt. Rita'S Hospital [facility] [id number] [address] [facility] [address]Unjmxfwtl LevelNov2024 11:05pmNov2024 11:49pm3.7 mmol/L3.5-5.1FGrand [facility] [id number] [address] [facility] [address]Etawgqog LevelNov2024 11:05pmNov2024 11:44of951 mmol/L86-058OnjbcxzhrSt. Rita'S Hospital [facility]tr [id number] [address] [place] [address]Carbon Dioxide LevelNov2024 11:05pmNov2024 11:49pm20.3 mmol/LBelow low aozfva97.0-31.0[facility] [id number] [address] [facility] [address]Kyrrd GapNov2024 11:05pmNov2024 11:49pm 11.4 mEq/L6.0-15.0[facility] [id number] [address] [place] [address]Calcium LevelNovember 2024 11:05pmNov2024 11:49pm8.2 mg/dLBelow low normal8.6-10.3FGrand [facility] [id number] [address] [place] [address]Total ProteinNovember 2024 11:05pmNov2024 11:49pm6.3 g/dLBelow low normal6.4-8.9[facility] [id number] [address] [place] [address]AlbuminNovember 2024 11:05pmJune 12, 2025 11:49pm 3.5 g/dL3.5-5.7FGrand [facility] [id number] [address] [facility] [address]FvbymotqXbyyaxnz 25th, 2025 11:05pmJune 12, 2025 11:49pm 2.8 g/dLSt. Rita'S Hospital [facility]tr [id number] [address] [facility] [address]Dlzkgee/Globulin RatioNovember 2024 11:05pmJune 12, 2025 11:49pm1.3FGrand [facility] [id number] [address] [facility] [address]Muqfa BilirubinJune 12, 2025 11:05pmJune 12, 2025 11:49pm0.3 mg/dL0.3-1.0[facility] [id number] [address] [facility] [address]Apafeihki Amino Transf (AST/SGOT)June 12, 2025 11:05pm June 12, 2025 11:49pm14 U/P91-28CnxwfutipSt. Rita'S Hospital Ctr [id number] [address] [facility] [address]Czcmvta Aminotransferase (ALT/SGPT)June 12, 2025 11:05pm June 12, 2025 11:49pm9 U/L7-52[facility] [id number] [address] [facility] [address] [facility] [address]Vbhtkjgo PhosphataseJune 12, 2025 11:05pmJune 12, 2025 11:49pm59 U/S79-149AlecybigzSt. Rita'S Hospital [facility]tr [id number] [address] [facility] [address] [facility] [address]Hkuysslr Creatinine Clearance (ChemNov2024 11:05pm June 12, 2025 11:45sz860.65[facility] [id number] [address] [facility] [address] [facility] [address]Jfchwhdhkfz (Lamictal) LevelNov2024 11:05pmJune 17, 2025 3:36am<1.0 ug/mLBelow low normal2.0-20.0Detection Limit = 1.0Performed at: - [facility] [address] [id number] Director: Lux Zapata MD, Phone: [phone] GlucoseJune 13, 2025 1:27amNovember 2024 1:29am 146 mg/dLRandom Glucose Reference Range is dependent on time and content of last meal. Glucose of more than 200 mg/dL in a nonstressed, ambulatory subject supports the diagnosis of Diabetes Mellitus.Point of Care testing Vital Signs Vital Reading Result Reference Range Collection Date/Time Height 68 [in_i] June 12, 2025 10:99wfGnnraq348.80 kgJune 12, 2025 10:55pmBody Lqvgxpaeooo58.5 [degF]97.6-99.0June 12, 2025 10:51pmHeart Rate83 /min 60-100June 13, 2025 1:11amRespiratory rate24 /pzp90-47ScgmgrnvJune 13, 2025 1:11amOxygen saturation by Pulse kzwljhda58 %95-100June 13, 2025 1:11amBP Eclxauqx634 mm[Hg]100-140June 13, 2025 1:11amBP Sxibdpkvd27 mm[Hg]60-100 June 13, 2025 1:11amHeart Rate72 /clm39-598OpnbnlyoJune 13, 2025 1:57am Respiratory rate16 /wei64-53VzwjaasvJune 13, 2025 1:57amOxygen saturation by Pulse vyvnkcvx36 %95-100June 13, 2025 1:57amBP Lxwedeea947 mm[Hg]100-140 June 13, 2025 1:57amBP Zvbgccjmm59 mm[Hg]60-100June 13, 2025 1:57am Advance Directives Advance Directive Response Recorded Date/ Time Advance Directives No November 08 2:18pm Insurance Providers Guarantor Kavya Guerrero Address [address] [facility] [address]Lclzmvp Info.Home Phone: Coverage Status Update:2025 Payer Group Member ID Coverage Type Subscriber Relationship to Subscriber Effective Date Expiration Date MMO Id: [id number] A Rowe Id: [id number] [address] [facility] [address] Home Phone: Email: [email or web address] [email or web address] Id: [id number] A Rowe Id: [id number] [address] [facility] [address] Home Phone: Email: [email or web address] NICOLE Id: [id number] A Rowe Id: [id number] [address] [facility] [address] Home Phone: Email: [email or web address] Encounters Encounter Location(s) Arrival/Admit Date Discharge/Departure Date Discharge/Departure Disposition Provider(s) Departed Emergency -Emergency Room June 12, 2025 10:41pm June 13, 2025 1:45am Discharged to home care or self care (routine discharge) Departed Clinical-3 [facility] - O/PNovember 2024 12:17amNovember 2024 2:35amDischarged to home care or self care (routine discharge)Bryn Healy , DO Plan of Treatment Future Tests Future scheduled test information is unavailable Pending Tests Pending diagnostic test information is unavailable Future Visits Future appointment information is unavailable Future Procedures Procedure Name Ordered Date Scheduled Date Admit Status Order June 13, 2025 12:23am N ovember 2024 12:23am Discharge Order June 13, 2025 2:24am Novem samantha 2024 2:24am Future Medications Future medication information is unavailable Patient Instructions Instruction Admit Date Epilepsy and Seizures in adults - ED discharge instructionsJune 12, 2025 10:41pm Antepartum Discharge Instructions (FR)June 13, 2025 12:17am Goals Preferences Type Detail Treatment Intervention Code Status: Full Code
--- OUTSIDE RECORDS SUMMARY | 2025-07-04 18:45 | XMS_ITS | Encounter Summary ---
Author Organization [facility] Address [address] [facility] [place] [address] Care Team Providers Care Statement Services Representative Name Role Phone Suzanne Uriarte MD Primary Care Provider [phone]- [phone] Encounter Details DateTypeDepartmentCare Team (Latest Contact Info)Iuqkimniadk19/08/2025bstract [facility] [address] [place] [address] Willis Chen DO [address] [facility] [address] Clary Desai, [facility] Social History Tobacco UseTypesPacks/DayYears UsedDateSmoking Tobacco: Never Assessed Estimated Date of KjhlxeuwZwgnadxhUar99/02/2026ased on last menstrual period of 11/13/2024Sex and Gender InformationValueDate RecordedSex Assigned at BirthFemale 12/21/2022 8:22 PM EDTLegal YfaEithmm98/15/2023 11:40 PM EDTGender Identity Bqttuk5812/21/2022 8:22 PM EDTSexual XcfxfitlfswZyhutdbb45/05/2023 8:22 PM EDT documented as of this encounter Plan of Treatment DateTypeDepartmentCare Team (Latest Contact Info)Mwvfouskinq70/22/2025 4:00 PM ESTRoutine [facility] WEBBERN [address] [facility] [place] [address] Roula Grullon PA [address] [facility] [place] [address] 07/23/2025 3:00 PM ESTAncillary Procedure [facility] [address] [place] [address] [place] [address] documented as of this encounter Goals GoalPatient Goal TypeAssociated ProblemsRecent ProgressPatient-Stated?Author Reminders Care PlanOB RemindersNoOpen Scheduling, Backgrounddocumented as of this encounter Visit Diagnoses Not on filedocumented in this encounter Additional Health Concerns Active ProblemsNoted DateDiagnosed DateOB Ilzzvjudm34/29/2023 documented as of this encounter Care Teams Team MemberRelationshipSpecialtyStart [place] [address] [address] [place] [address] PCP - GeneralFamily Medicine01/14/23documented as of this encounter
--- OUTSIDE RECORDS SUMMARY | 2025-07-04 18:45 | XMS_ITS | Clinical Summary ---
Author Organization [facility] Healthcare Address [address] [place] [address] Care Team Providers Care Superintendent Sales Name Role Phone Koffi Winters MD Primary Care Provider [phone]- [phone] Allergies No known active allergies Medications MedicationSigDispense [...] (200 mg) before bedtime. 60 tablet 5Active lamoTRIgine (LaMICtal) 200 MG tablet 200 mg in the morning and 200 mg before bedtime.5Active lamoTRIgine (LaMICtal) 100 MG tablet Take 100 mg by mouth in the morning and 100 mg in the evening.06/13/2025 Discontinued iron polysaccharides (ProFe) 391.3 (180 Fe) MG capsule Indications:Hemoglobin lowTake 1 capsule (391.3 mg) by mouth Daily 30 capsule 615108/29/2024Expired lamoTRIgine (LaMICtal) 150 MG tablet 150 mgDiscontinued Active Problems ProblemNoted DateDiagnosed DateBreech presentation, no version ([facility]) 07/29/20235773Wpxvdonncsnn45/29/3104Alrvwoe31/22/2021Estimated Date of JwtrfebxOfvpxstsEsa73/02/2026ased on last menstrual period of 11/13/2024 Encounters DateTypeDepartmentCare LijdKldobstjswb04/15/5067Hecdef24/10/2025 3:00 PM EST Routine [facility] [address] [address] Lisa Chen, DO Third trimester ([facility]); 32 weeks gestation of ([facility]); Seizure ([facility]); Hypertension, unspecified type; Antepartum anemia ([facility]); SGA (small for gestational age) ([facility])06/27/2025Telephone [facility] [address] [address] ELEVATOR ERECTOR 06/27/2025amboo flowsheet [facility] [address] [place] [address] Lisa Chen, DO 06/25/2025bstract [facility] [address] [place] [address] Lisa Chen, DO 06/25/2025bstract [facility] [address] [place] [address] Lisa Chen, DO 06/25/2025Telephone [facility] [address] [place] [address] Lisa Chen, DO 06/21/2025bstract [facility] [address] [place] [address] Lisa Chen, DO 06/20/20251424Krlfap67/28/2025Clinisync Result Encounter [facility]OM[facility] External Department Unsolicited Roula Grullon PA 06/13/2025 3:00 PM ESTRoutine [facility] [address] [place] [address] Roula Grullon PA Third trimester ([facility]); 30 weeks gestation of ([facility]); Antepartum anemia ([facility])06/13/2025 2:30 PM ESTAncillary Procedure [facility] [address] [place] [address] Hypertension, unspecified type; Seizure (HCC)06/13/2025bstract [facility] [address] [place] [address] Lisa Chen, DO 06/13/2025bstract [facility] [address] [place] [address] Lisa Chen, DO 06/13/2025bstract [facility] [address] [place] [address] Lisa Chen, DO 5Clinisync Result Encounter NOMS External Department Unsolicited Lisa Chen, DO 06/12/20257756Nscucd53/25/2025Telephone [facility] [address] [place] [address] Lisa Chen, DO 05/29/2025 11:40 AM ESTRoutine [facility] [address] [place] [address] Lisa Chen, DO 28 weeks gestation of ([facility]); Third trimester ([facility]); Hypertension, unspecified type; Seizure (HCC); Hemoglobin low05/29/2025amboo flowsheet [facility] [address] [address] Lisa Chen DO 05/22/20253902Ufxabo17/01/2025Clinisync Result Encounter NOMS External Department Unsolicited Roula Grullon PA 04/30/2025 9:50 AM EDTRoutine [facility] [place] [address] Roula Grullon PA Second trimester ([facility]); 24 weeks gestation of ([facility]); Hypertension, unspecified type; Seizure ([facility]); Diabetes mellitus bgbflogmg13/13/2025amboo flowsheet [facility] [place] [address] Roula Grullon PA 04/29/20259102Emcrem68/01/2025Refill [facility] [address] Lisa Chen DO Secondary wovobpziphzg63/20/2025linisync Result Encounter NOMS External Department Unsolicited Roula Grullon PA 04/04/2025 3:10 PM EDTRoutine [facility] [place] [address] Lisa Chen DO 20 weeks gestation of ([facility]); Second trimester ([facility])04/04/2025linisync Result Encounter NOMS External Department Unsolicited Lisa Chen DO 04/04/2025linisync Result Encounter NOMS External Department Unsolicited Lisa Chen DO from Last 3 Months Social History Tobacco UseTypesPacks/DayYears UsedDateSmoking Tobacco: Never Assessed Estimated Date of PsmhzjihYvlesljjQph36/02/2026Based on last menstrual period of 11/13/2024Sex and Gender InformationValueDate RecordedSex Assigned at BirthFemale 12/21/2022 8:22 PM EDTLegal QwyHzszeu63/15/2023 11:40 PM EDTGender Identity Qytyft2712/21/2022 8:22 PM EDTSexual RanaaxesifgWkcalaaw40/05/2023 8:22 PM EDT Last Filed Vital Signs Vital SignReadingTime TakenCommentsBlood Okcrpshe522/7606/27/2025 3:16 PM EST Pulse--Temperature--Respiratory Rate--Oxygen Saturation--Inhaled Oxygen Concentration--Rcpnhd03.6 kg (197 lb 8 oz)06/27/2025 3:16 PM JWHAmiznu367.3 cm (5' 9 )11/16/2022 12:00 PM EDTBody Mass Index29.17011/16/2022 12:00 PM EDT Plan of Treatment DateTypeDepartmentCare Team (Latest Contact Info)Hlgwbpajixr14/22/2025 4:00 PM ESTRoutine [facility] [address] [place] [address] [place] [address] Roula Grullon PA [address] [place], [facility] 07/23/2025 3:00 PM ESTAncillary Procedure [facility] [address] [place] [address] Health MaintenanceDue DateLast DoneCommentsHPV/Nptpux104COVID-19 Vaccine ( season)/03/2023, 01/29/2021, 01/08/2021Influenza Vaccine (#1)/11/2022, 04/21/2022, 04/18/2021, Additional history existsCervical Cancer Agpvzjqjt88/20/2028Pap Smear, 03/09/2023neumococcal Vaccine: Pediatrics (0 to 5 Years) and At-Risk Patients (6 to 64 Years)Aged OutNo longer eligible based on patient's age to complete this topic Goals GoalPatient Goal TypeAssociated ProblemsRecent ProgressPatient-Stated?Author Reminders Care PlanOB RemindersNoOpen Scheduling, Background Procedures Procedure NamePriorityDate/TimeAssociated DiagnosisCommentsPOCT URINALYSIS EOZCWFDGRaexcry86/10/2025 3:20 PM EST Third trimester ([facility]) ZNMJFCYTQMQOqvinjz55/28/2025 2:57 PM EST [facility] RDENECHKUxozoej71/28/2025 2:57 PM EST POCT URINALYSIS SVGOGAXGDasgmvf31/26/2025 3:11 PM EST Third trimester ([facility]) US OB FOLLOW UP TRANSABDOMINAL GZQEOXEWNujicvh47/26/2025 3:02 PM EST Hypertension, unspecified type Seizure (HCC) TB[facility] UA (CLEAN/CATCH) QUALITY CONTROL SPECIALIST/MICRO IF IND.Gkqjaye3806/12/2025 4:40 PM EST POCT URINALYSIS ZOOLGSZHXtbnyka90/11/2025 11:46 AM EST 28 weeks gestation of ([facility]) Third trimester ([facility]) GLUCOSE 1 VCJMMqkjdei57/01/2025 12:28 PM EDT ALL CBC WITH AUTO ZRJZQkenbaw82/01/2025 12:28 PM EDT POCT URINALYSIS SMSYOHDSRxvauli52/13/2025 10:14 AM EDT Second trimester ([facility]) AFP, SERUM, OPEN SPINA UWBUUVAizmqdv83/20/2025 10:31 AM EDT POCT URINALYSIS UPQAKUNGEraehbr03/17/2025 3:20 PM EDT 20 weeks gestation of ([facility]) Second trimester ([facility]) US OB NIIKQGI6004/04/2025 9:12 AM EDT US OB CERVICAL YNLDVV4304/04/2025 9:12 AM EDT PAP ZVGMMGkkfkjh64/20/2025 12:00 AM EDTfrom Last 3 Months or Most Recently Relevant to Health Maintenance Results * (ABNORMAL) POCT urinalysis dipstick manually resulted (06/27/2025 3:20 PM EST) Only the most recent of5 resultswithin the time period is included. ComponentValueRef RangeTest MethodAnalysis TimePerformed AtPathologist Signature Color, UAYellowClarity, UAClearGlucose, UANegativeNegative - 2000(110) ++++ mg/dLBilirubin, UANegativeNegative - 4(70) +++ mg/dLKetones, UANegativeNegative - 160(16) ++++ mg/dLSpec Grav, UA1.0201 - 1.03Blood, UANegativeNegative - 50 Jae/mcLpH, UA6.55 - 9Protein, UAPositiveNegative - 2000(20) ++++ mg/dLComment:1+ Urobilinogen, UA>=8.00.2 - 12 mg/dLComment:TraceLeukocytes, UANegativeNegative - 500+++ Marsha/mcLNitrite, UANegativeNegative - PositiveSpecimen (Source)Anatomical Location / LateralityCollection Method / VolumeCollection TimeReceived TimeUrine 06/27/2025 3:20 PM EST Narrative Authorizing ProviderResult TypeResult StatusCorey April DOPOINT OF CARE TEST ENTER/EDIT ORDERABLESFinal Result * (ABNORMAL) TRANSFERRIN (06/15/2025 2:57 PM EST)ComponentValueRef RangeTest MethodAnalysis TimePerformed AtPathologist IssmthjklFUWLYLORNSU155(A)192 - 364 mg/dLTBHComment: Performed at: ??CB - [facility] [address] ??[id number] Sulfonator Operator: Jose Fallon PhD, Phone: ??[phone] Specimen (Source)Anatomical Location / LateralityCollection Method / Volume Collection TimeReceived Time06/15/2025 2:57 PM EST06/15/2025 2:59 PM EST Narrative CLINISYNC - 06/16/2025 7:07 AM EST Authorizing ProviderResult TypeResult StatusAmy Mitchel PALAB BLOOD ORDERABLES Final ResultPerforming OrganizationAddressCity/State/ZIP CodePhone Number GIFTYTN TB * (ABNORMAL) [facility]CF FERRITIN (06/15/2025 2:57 PM EST)ComponentValueRef RangeTest MethodAnalysis TimePerformed AtPathologist SignatureFERRITIN6.0(L)8.0 - 252.0 ng/mLTBHSpecimen (Source)Anatomical Location / LateralityCollection Method / VolumeCollection TimeReceived Time06/15/2025 2:57 PM EST06/15/2025 2:59 PM EST Narrative [facility]IN[facility]NC - 06/15/2025 3:40 PM EST Authorizing ProviderResult TypeResult StatusAmy Mitchel PACLINISYNCFinal Result Performing OrganizationAddressCity/State/ZIP CodePhone Number DRAGANISYNC [facility] * US OB follow up transabdominal approach [...] Eid MD Authorizing ProviderResult TypeResult StatusCorechristina Chen DOI OB US PROCEDURES Final Result * (ABNORMAL) TBH UA (CLEAN/CATCH) QUALITY CONTROL SPECIALIST/MICRO IF IND. (06/12/2025 4:40 PM EST) ComponentValueRef [...] RangeTest Method Analysis TimePerformed AtPathologist SignatureGLUCOSE 1 RZTA501<130 mg/dLTBH Specimen (Source)Anatomical Location / LateralityCollection Method / Volume Collection TimeReceived Time05/19/2025 12:28 PM EDT107/19/2024 12:29 PM EDT Narrative CLINISYNC - 05/19/2025 1:15 PM EDT Authorizing ProviderResult TypeResult StatusAmy Lincoln PALAB BLOOD ORDERABLES Final ResultPerforming OrganizationAddressCity/State/ZIP CodePhone Number CLINISYNC [facility] * (ABNORMAL) ALL CBC WITH AUTO DIFF (05/19/2025 12:28 PM EDT)ComponentValueRef RangeTest MethodAnalysis TimePerformed AtPathologist SignatureTBH WBC9.84.0 - 11.0 10 3/uLTBHTBH RBC3.21(L)4.20 - 5.40 10 6/uLTBHTBH HGB10.2(L)12.0 - 16.0 g/dLTBHTBH HCT30.2(L)36.0 - 48.0 %TBHTBH MCV94.181.0 - 99.0 fLTBHTBH MCH31.8 26.7 - 34.0 pgTBHTBH MCHC33.829.9 - 35.2 g/dLTBHTBH RDW12.311.0 - 15.0 %TBHTBH NSZ974702 - 450 10 3/uLTBHTBH MPV8.9(L)9.5 - 13.5 [...] within 10 days. MATERNAL AGE AT EDD31.8. yrTBHRACECaucasian.WFTDQUESL185. lbsTBHINSULIN DEP DIABETESNo.TBHMULTIPLE GESTATIONNo.TBHAFP VALUE45.0. ng/mLTBHAFP MOM0.82.TBHOSBR RISK 1 WJ89031.TBHINTERPRETATIONComment.TBHComment: Interpretation: Screen Negative This result is screen [...] Customer Services to discuss available options. ??The [employer] recommends amniocentesis be offered to women age 35 and older. COMMENT:Comment.TBHComment: Jeny Avila, Ph.D., [facility] Director References: Available Upon Request. Multiples Of Median Cutoffs ?For AFP Elevations Becerra ?? 2.5 ? Black ?2.8 IDD ? 2.0 ? Twins ?4.5 ?Abbreviation Definitions IDD - Insulin Dep Diabetes OSBR - Open Spina Bifida Risk For further inquiries contact [employer] at [phone]. This test was developed and its performance characteristics determined by [employer]. It has not been cleared or approved by the Food and Drug Administration. Performed at: ??[facility] - [facility] [address] [place], [place] ??[id number] Sulfonator Operator: Abdulaziz Aquino [facility], Phone: ??[phone] Specimen (Source)Anatomical Location / LateralityCollection Method / Volume Collection TimeReceived Time04/07/2025 10:31 AM EDT04/07/2025 10:35 AM EDT Narrative CLINISYNC - 04/09/2025 6:08 PM EDT N N LMP [id number] 2 16 N 1 Y 183 N N N N N White/ Authorizing ProviderResult TypeResult StatusAmy Mitchel PALAB BLOOD ORDERABLES Final ResultPerforming OrganizationAddressCity/State/ZIP CodePhone Number CLINISYNC [facility] * US OB CERVICAL LENGTH (04/04/2025 9:12 AM EDT)Anatomical RegionLaterality ModalityOtherSpecimen (Source)Anatomical Location / LateralityCollection Method / VolumeCollection TimeReceived Time04/04/2025 9:12 AM EDT Narrative 04/04/2025 9:14 AM EDT [facility] ?[address] ? [place] [address] ? Ultrasound Report ? Signed ? Patient: PRINCESS HUNTER ?MR#: [id number] ?? : 1995 ?Acct:[id number] ?? Age/Sex: 29 / F ?ADM Date: 04/03/25 ?? Loc: US ? Attending Dr: Lisa Chen D.O. ? Ordering Physician: Lisa Chen D.O. ?? Date of Service: 04/03/25 ?? Procedure(s): US OB cervical length ?? Accession Number(s): [id number] ? cc: Lisa Chen D.O.; KOFFI WINTERS M.D. ? [facility] ? [address] ? [place] [address] ? Patient Name: ?? PRINCESS A DALE ? MRN: [id number] ? date: 1995 ?Sex: F ?? Assigned Patient Location: US ?? Current Patient Location: ? Accession/Order Number: [id number] ?? Exam Date: 04/03/2025 ??18:53 ?Report Date: [...] ?? 4 extremities were surveyed by the business process analyst and no abnormalities were ?? reported. ??The [...] Dictation Location: RADIO-PC-30 ? Electronically authenticated by: [id number] ??Y ?? Date: 04/04/2025 ??09:12 ? Dictated By: ?Cyndi Pisano M.D. ? Signed By: ?04/04/25 0914 ? DD/ 0912 ? TD/TT: ? Intake Nurse: Procedure Note Radiology, Radiologist, - 04/04/2025 [place] [address] Ultrasound Report Signed Patient: PRINCESS HUNTER AMR#: [id number] : 1995Acct:[id number] Age/Sex: 29 FADM Date: 04/03/25 Loc: US Attending Dr: Lisa Chen D.O. Ordering Physician: Lisa Chen D.O. Date of Service: 04/03/25 Procedure(s): US OB cervical length Accession Number(s): [id number] cc: Lisa Chen D.O.; KOFFI WINTERS M.D. [facility] [place] [id number] Patient Name: PRINCESS HUNTER MRN: [id number] date: 1995 Sex: F Assigned Patient Location: Current Patient Location: Accession/Order Number: [id number] Exam Date: 04/03/2025 18:53 Report Date: 04/04/2025 [...] andall 4 extremities were surveyed by the business process analyst and no abnormalities were reported. The stomach, [...] Pisano M.D. 04/04/2025 9:12 AM Dictation Location: [place] [address] Electronically authenticated by: [id number] Y Date: 509:12 Dictated By: Cyndi Pisano M.D. Signed By:04/04/25913 DD/ 1 TD/TT: Intake Nurse: Authorizing ProviderResult TypeResult StatusCorey April DOCLINISYNC IMAGINGFinal Result * OB ANATOMY (04/04/2025 9:12 AM EDT)Anatomical RegionLateralityModalityOther Specimen (Source)Anatomical Location / LateralityCollection Method / Volume Collection TimeReceived Time04/04/2025 9:12 AM EDT Narrative 04/04/2025 9:14 AM EDT [facility] ?[address] ? [place] [address] ? Ultrasound Report ? Signed ? Patient: ANNABEL HUNTERN Alison ?MR#: [id number] ?? : 1995 ?Acct:[id number] ?? Age/Sex: 29 / F ?ADM Date: 04/03/25 ?? Loc: US ? Attending Dr: Lisa Chen D.O. ? Ordering Physician: Lisa Chen D.O. ?? Date of Service: 04/03/25 ?? Procedure(s): US OB anatomy ?? Accession Number(s): [id number] ? cc: Lisa Chen D.O.; KOFFI WINTERS M.D. ? [facility] ? [address] ? [place] [address] ? Patient Name: ?? PRINCESS HUNTER ? MRN: [facility]:[id number] ? date: 1995 ?Sex: F ?? Assigned Patient Location: US ?? Current Patient Location: ? Accession/Order Number: [id number] ?? Exam Date: 04/03/2025 ??18:53 ?Report Date: [...] ?? 4 extremities were surveyed by the business process analyst and no abnormalities were ?? reported. ??The [...] Dictation Location: RADIO-PC-30 ? Electronically authenticated by: [id number] ??Y ?? Date: 04/04/2025 ??09:12 ? Dictated By: ?Cyndi Pisano M.D. ? Signed By: ?04/04/25913 ? DD/ 0912 ? TD/TT: ? Intake Nurse: Procedure Note Radiology, Radiologist, MD - 04/04/2025 [place] [address] Ultrasound Report Signed Patient: PRINCESS HUNTER AMR#: [id number] : 1995Acct:[id number] Age/Sex: Date: 04/03/25 Loc: US Attending Dr: Lisa Chen D.O. Ordering Physician: Lisa Chen D.O. Date of Service: 04/03/25 Procedure(s): US OB anatomy Accession Number(s): [id number] cc: Lisa Chen D.O.; KOFFI WINTERS M.D. [facility] [place] [id number] Patient Name: PRINCESS HUNTER MRN: [id number] date: 1995 Sex: F Assigned Patient Location: US Current Patient Location: Accession/Order Number: [id number] Exam Date: 04/03/2025 18:53 Report Date: 04/04/2025 [...] andall 4 extremities were surveyed by the business process analyst and no abnormalities were reported. The stomach, [...] Dictation Location: [facility] Electronically authenticated by: [id number] Y Date: 509:12 Dictated By: Cyndi Pisano M.D. Signed By:04/04/25913 DD/ 1 TD/TT: Intake Nurse: Authorizing ProviderResult TypeResult StatusCorey April DOCLINISYNC IMAGINGFinal Result * Pap Smear (03/07/2025 12:00 AM EDT)Specimen (Source)Anatomical Location / LateralityCollection Method / VolumeCollection TimeReceived TimeSwabCervical swab / Unknown Narrative Authorizing ProviderResult TypeResult StatusAmy [facility] CYTOLOGY ORDERABLES Final ResultPerforming OrganizationAddressCity/State/ZIP CodePhone Number EXTERNAL LAB from Last 3 Months or Most Recently Relevant to Health Maintenance Additional Health Concerns Active ProblemsNoted DateDiagnosed DateOB Zcmuabxim96/29/2023 Insurance Care Teams Team MemberRelationshipSpecialtyStart [place] [address] [place], [place] [address] PCP - GeneralFamily Medicine01/14/23
--- OUTSIDE RECORDS SUMMARY | 2025-07-04 18:45 | XMS_ITS | Encounter Summary ---
Author Organization [facility] Address [address] [facility] [place] [address] Care Team Providers Care Lift Builder Whole Name Role Phone Suzanne Uriarte MD Primary Care Provider [phone]- [phone] Encounter Details DateTypeDepartmentCare Team (Latest Contact Info)Edtlphcuntx73/04/2025bstract [facility] [address] [place] [address] Willis Chen DO [address] [facility] [facility] [address] [place], [facility] Social History Tobacco UseTypesPacks/DayYears UsedDateSmoking Tobacco: Never Assessed Estimated Date of UmguzoaxNemgvnbpAln23/02/2026ased on last menstrual period of 11/13/2024Sex and Gender InformationValueDate RecordedSex Assigned at BirthFemale 12/21/2022 8:22 PM EDTLegal AyiFyfspj34/15/2023 11:40 PM EDTGender Identity Toelfu7012/21/2022 8:22 PM EDTSexual PdwetpidoksBzfbcezk74/05/2023 8:22 PM EDT documented as of this encounter Plan of Treatment DateTypeDepartmentCare Team (Latest Contact Info)Ovxpjfecthu98/22/2025 4:00 PM ESTRoutine [facility] Zachariah WEBBERN [address] [place] [address] Roula Grullon PA [address] [facility] [facility] [address] [place] [address] 07/23/2025 3:00 PM ESTAncillary Procedure [facility] Zachariah [facility] [address] [place] [address] [place] [address] documented as of this encounter Goals GoalPatient Goal TypeAssociated ProblemsRecent ProgressPatient-Stated?Author Reminders Care PlanOB RemindersNoOpen Scheduling, Backgrounddocumented as of this encounter Visit Diagnoses Not on filedocumented in this encounter Additional Health Concerns Active ProblemsNoted DateDiagnosed DateOB Bwryqcpwj77/29/2023 documented as of this encounter Care Teams Team MemberRelationshipSpecialtyStart [place] [address] [place] [address] PCP - GeneralFamily Medicine01/14/23documented as of this encounter
--- OUTSIDE RECORDS SUMMARY | 2025-07-04 18:45 | XMS_ITS | Encounter Summary ---
Author Organization [facility] Address [address] [facility] [place] [address] Care Team Providers Care Bi Tri Operator Name Role Phone Suzanne Uriarte MD Primary Care Provider +1- [phone] Encounter Details DateTypeDepartmentCare Team (Latest Contact Info)Oqiwcdrmvaq51/08/2025Telephone [facility] [address] [place] [address] Willis Chen, [address] [facility] [place] [address] Social History Tobacco UseTypesPacks/DayYears UsedDateSmoking Tobacco: Never Assessed Estimated Date of IyepwixgAjdxkzexKhk81/02/2026ased on last menstrual period of 11/13/2024Sex and Gender InformationValueDate RecordedSex Assigned at BirthFemale 12/21/2022 8:22 PM EDTLegal ChqGanmme67/15/2023 11:40 PM EDTGender Identity Fmraja5112/21/2022 8:22 PM EDTSexual BzfsmixabdsGfpgviag31/05/2023 8:22 PM EDT documented as of this encounter Miscellaneous Notes * Telephone Encounter - Lynette Engel LPN - 06/25/2025 11:09 AM EST Patient returned call and she was advised of results and that we will do a growth again and that with her labs we will submit for infusions. Patient transferred to clerical to schedule ultrasound butmade aware order sent to [facility] if she needs to have that completed there. PVU. * Telephone Encounter - Lynette Engel LPN - 06/25/2025 10:35 AM EST Patient was called and a detailed message was left to return call to the office to be made aware oforders for repeat growth in 4 weeks. documented in this encounter Plan of Treatment DateTypeDepartmentCare Team (Latest Contact Info)Ebideynoiuh25/22/2025 4:00 PM ESTRoutine [facility] G[facility]elle [facility] [address] [place] [address] Roula Grullon PA [address] [facility] [address] [place], [place] [address] 07/23/2025 3:00 PM ESTAncillary Procedure [facility] [address] [facility] [place] [address] NameTypePriorityAssociated DiagnosesOrder ScheduleUS OB follow up transabdominal approachImagingRoutine Third trimester ([facility]) Seizure (HCC) Hypertension, unspecified type SGA (small for gestational age) ([facility]CC) Expected: 06/25/2025, Expires: 10/24/2025documented as of this encounter Goals GoalPatient Goal TypeAssociated ProblemsRecent ProgressPatient-Stated?Author Reminders Care PlanOB RemindersNoOpen Scheduling, Backgrounddocumented as of this encounter Visit Diagnoses Diagnosis Third trimester ([facility]) state, incidental Seizure (HCC) Other convulsions Hypertension, unspecified type SGA (small for gestational age) ([facility]HS-HCC) Zzblz-ivw-tkyam without mention of malnutrition, unspecified (weight) documented in this encounter Additional Health Concerns Active ProblemsNoted DateDiagnosed DateOB Qacotzfwa94/29/2023 documented as of this encounter Care Teams Team MemberRelationshipSpecialtyStart [place] [address] [place] [address] PCP - GeneralFamily Medicine01/14/23documented as of this encounter
--- OUTSIDE RECORDS SUMMARY | 2025-07-04 18:45 | XMS_ITS | Encounter Summary ---
Author Organization [facility] Address [address] [facility] [place] [address] Care Team Providers Care Pole Shaver Name Role Phone Suzanne Uriarte MD Primary Care Provider +1- [phone] Encounter Details DateTypeDepartmentCare Team (Latest Contact Info)Qghjzjuytbj60/08/2025bstract [facility] LAYTON [address] [place] [address] Willis Chen DO [address] [facility] [address] lCary Desai, [facility]11 Social History Tobacco UseTypesPacks/DayYears UsedDateSmoking Tobacco: Never Assessed Estimated Date of ByjtqalqEytdizpxFox50/02/2026ased on last menstrual period of 11/13/2024Sex and Gender InformationValueDate RecordedSex Assigned at BirthFemale 12/21/2022 8:22 PM EDTLegal EzkRttdoi98/15/2023 11:40 PM EDTGender Identity Azybfa0512/21/2022 8:22 PM EDTSexual RrminmvbcmoYgdwvvnz33/05/2023 8:22 PM EDT documented as of this encounter Plan of Treatment DateTypeDepartmentCare Team (Latest Contact Info)Gshifeneptk40/22/2025 4:00 PM ESTRoutine [facility] WEBBERN [address] [facility] [address] Roula Grullon PA [address] [facility] [address] [place] [address] 07/23/2025 3:00 PM ESTAncillary Procedure [facility] LAYTON [address] [place] [address] [place] [address] documented as of this encounter Goals GoalPatient Goal TypeAssociated ProblemsRecent ProgressPatient-Stated?Author Reminders Care PlanOB RemindersNoOpen Scheduling, Backgrounddocumented as of this encounter Visit Diagnoses Not on filedocumented in this encounter Additional Health Concerns Active ProblemsNoted DateDiagnosed DateOB Sopygfjey30/29/2023 documented as of this encounter Care Teams Team MemberRelationshipSpecialtyStart [place] [address] [place] [address] PCP - GeneralFamily Medicine01/14/23documented as of this encounter
--- OUTSIDE RECORDS SUMMARY | 2025-07-04 18:45 | XMS_ITS | Encounter Summary ---
Author Organization [facility] Address [address] [place] [address] Phone Care Team Providers Care Information Systems Audit Manager Name Role Phone Suzanne Uriarte MD Primary Care Provider + Encounter Details DateTypeDepartmentCare Team (Latest Contact Info)Yancnrinbwg84/01/2025Orders Only [facility] [address] [place] [address] Dr Chiu [address] [phone] Mei Soto MA Seizure (Multi) Social History Tobacco UseTypesPacks/DayYears UsedDateSmoking Tobacco: NeverPassive Smoke Exposure: NeverSmokeless Tobacco: CurrentAlcohol UseStandard Drinks/WeekComments Not Currently0 (1 standard drink = 0.6 oz pure alcohol)SociallyPHQ-2AnswerDate RecordedPatient Health Questionnaire-2 Yxwxz05208/21/2024UDIT-CAnswerDate RecordedQ1: How often do you have a [...] Plan of Treatment DateTypeDepartmentCare Team (Latest Contact Info)Uehfxfvidkq93/18/2026 2:[address] [facility] [address] [place] [address] Dr Chiu [address] [phone] Laila Jin, CITY MARSHAL-RETAIL SHIFT SUPERVISOR [address] [place] [address] documented as of this encounter Visit Diagnoses Diagnosis Seizure (Multi) Other convulsions documented in this encounter Additional Health Concerns AssessmentNoted TimeA fall risk assessment has been completed for the patient 05/03/2024 9:18 AM EDTdocumented as of this encounter Care Teams Team MemberRelationshipSpecialtyStart [place] [address] [address] PCP - General08/14/20documented as of this encounter
--- NOTE | 2025-07-04 18:46 | US_ITS ---
[place] [id number] Patient Name: PRINCESS HUNTER MRN: [id number] date: 1995 Sex: F Assigned Patient Location: [facility] Current Patient Location: [place] Accession/Order Number: [id number] Exam Date: 07/04/2025 18:49 Report Date: 07/05/2025 10:00 At the request of: LISA ZIMMERMAN DO Procedure: US OB BPP w non-stress BIOPHYSICAL PROFILE: CLINICAL INFORMATION: HYPERTENSION, UNSPECIFIED TYPE I10 COMPARISON: None There is a single live intrauterine gestation in cephalic presentation. The reported gestational age is 33 weeks 2 days. The heart rate measures 144 beats per minute. FINDINGS: TONE: 1 or more episodes of activity extension and flexion of extremity or opening and closing of the hand [Y] 2/2 GROSS BODY MOVEMENTS: 3 or more discrete body or limb movements [Y] 2/2 BREATHING MOVEMENTS: 1 or more episodes of breathing lasting at least 30 seconds [Y] 2/2 LAURA: A single deepest vertical pocket of amniotic fluid greater than 2 cm [Y] 2/2 LAURA: 16.3 cm Total score: 8/8 US/US OB BPP w non-stress IMPRESSION: NORMAL BIOPHYSICAL PROFILE Impression dictated by: Cyndi Pisano M.D. 07/05/2025 10:00 AM Dictation Location: [place] [address] Electronically authenticated by: [id number] Y Date: 07/05/2025 10:00
--- OUTSIDE RECORDS SUMMARY | 2025-07-04 18:46 | XMS_ITS | Encounter Summary ---
Author Organization [facility] Address [address] [place] [address] Phone Care Team Providers Care Sap Functional Analyst Name Role Phone Suzanne Uriarte MD Primary Care Provider + Encounter Details DateTypeDepartmentCare Team (Latest Contact Info)Rpyznpqntvr61/08/2025 Documentation [facility] [address] [place] [address] Dr Chiu [address] [phone] Laila Jin, NEWSPAPER VENDOR-MARKER MAKER [address] [phone] Social History Tobacco UseTypesPacks/DayYears UsedDateSmoking Tobacco: NeverPassive Smoke Exposure: NeverSmokeless Tobacco: CurrentAlcohol UseStandard Drinks/WeekComments Not Currently0 (1 standard drink = 0.6 oz pure alcohol)SociallyPHQ-2AnswerDate RecordedPatient Health Questionnaire-2 Nfvqg78608/21/2024UDIT-CAnswerDate RecordedQ1: How often do you have a [...] on file documented as of this encounter Progress Notes * FRANKY Sheehan - 06/25/2025 6:50 PM EST Pt messaged with her lamotrigine levels: 06/12 in ED- level <1.0 micrograms/mL 06/20- level was 1.7 micrograms/mL Dr Deleon increased her lamotrigine today to 200mg BID and check blood level next week. She has a follow up appointment in September 2025 documented in this encounter Plan of Treatment DateTypeDepartmentCare Team (Latest Contact Info)Xwxqmcglrmd93/18/2026 2:00 PM EDTOffice Visit [address] Chiu [address] [phone] Laila Jin APRN-CNP [address] [place] [address] documented as of this encounter Visit Diagnoses Not on filedocumented in this encounter Additional Health Concerns AssessmentNoted TimeA fall risk assessment has been completed for the patient 06/20/2025 2:54 PM ESTdocumented as of this encounter Care Teams Team MemberRelationshipSpecialtyStart [place] [address] [address] PCP - General08/14/20documented as of this encounter
--- OUTSIDE RECORDS SUMMARY | 2025-07-04 18:46 | XMS_ITS | Encounter Summary ---
Author Organization [facility] Address [address] [place] [address] Care Team Providers Care Stamping Bench Die Maker Name Role Phone Suzanne Uriarte MD Primary Care Provider +1- [phone] Encounter Details DateTypeDepartmentCare Team (Latest Contact Info)Eczhiyrybfi23/10/2025Telephone [facility] [address] [place] [address] [place] [address] LPN Social History Tobacco UseTypesPacks/DayYears UsedDateSmoking Tobacco: Never Assessed Estimated Date of ZiwjqlojPaebyzawHyt59/02/2026Based on last menstrual period of 11/13/2024Sex and Gender InformationValueDate RecordedSex Assigned at BirthFemale 12/21/2022 8:22 PM EDTLegal ElsYbzbjg03/15/2023 11:40 PM EDTGender Identity Bpbveh7012/21/2022 8:22 PM EDTSexual InsbkebnaezWrbooukf45/05/2023 8:22 PM EDT documented as of this encounter Miscellaneous Notes * Telephone Encounter - Vee St LPN - 06/27/2025 3:39 PM EST Called patients insurance to discuss qypu-su-htrr @ case# [id number] spoke with Kaydenand gave him updated info in regard to Ferritin and Transferrin levels and that patient has been onOral medications for the past month. Will await call back or response in the next 48 hours.--ss 4:17pm Received call from Latonia Wnll-nk-Ulwd Reviewer and was informed that PA is now APPROVED. Ref#[id number]. 4:18pm Called Mihaela at [facility] Scheduling and notified her that Venofer was now APPROVED. 4:23pm Called patient and informed her that Venofer was Approved and to expect a call from [facility] to setup infusions. PVU--Vee Rai LPN documented in this encounter Plan of Treatment DateTypeDepartmentCare Team (Latest Contact Info)Tftffvbupcy72/22/2025 4:00 PM ESTRoutine [facility] LAYTON [address] [place] [phone] Roula Grullon PA [address] [place], [facility]11 07/23/2025 3:00 PM ESTAncillary Procedure [facility] Zach[facility] LAYTON [address] [facility] [facility] [place] [address] documented as of this encounter Goals GoalPatient Goal TypeAssociated ProblemsRecent ProgressPatient-Stated?Author Reminders Care PlanOB RemindersNoOpen Scheduling, Backgrounddocumented as of this encounter Visit Diagnoses Not on filedocumented in this encounter Additional Health Concerns Active ProblemsNoted DateDiagnosed DateOB Kmddfylgh19/29/2023 documented as of this encounter Care Teams Team MemberRelationshipSpecialtyStart [place] [address] [place] [address] PCP - GeneralFamily Medicine01/14/23documented as of this encounter
--- OUTSIDE RECORDS SUMMARY | 2025-07-04 18:46 | XMS_ITS | Encounter Summary ---
Author Organization [facility] Address [address] [facility] [place] [address] Care Team Providers Care Road Inspector Name Role Phone Suzanne Uriarte MD Primary Care Provider +1- [phone] Encounter Details DateTypeDepartmentCare Team (Latest Contact Info)Tazirjrnjui83/10/2025amboo flowsheet [facility] LAYTON [address] [facility] [place] [address] Willis Chen DO [address] [facility] [place] [address] Social History Tobacco UseTypesPacks/DayYears UsedDateSmoking Tobacco: Never Assessed Estimated Date of FimvbjorSypugotcRiw24/02/2026Based on last menstrual period of 11/13/2024Sex and Gender InformationValueDate RecordedSex Assigned at BirthFemale 12/21/2022 8:22 PM EDTLegal QpwXbeziy82/15/2023 11:40 PM EDTGender Identity Qujbod8212/21/2022 8:22 PM EDTSexual DavrdkjwagpNbezzdns24/05/2023 8:22 PM EDT documented as of this encounter Plan of Treatment DateTypeDepartmentCare Team (Latest Contact Info)Omprdhpdnrk54/22/2025 4:00 PM ESTRoutine [facility] WEBBERN [address] [facility] [place] [address] Roula Grullon PA [address] [facility] [place] [address] 07/23/2025 3:00 PM ESTAncillary Procedure [facility] WOODGYDelvin [address] [place] [address] [place] [address] documented as of this encounter Goals GoalPatient Goal TypeAssociated ProblemsRecent ProgressPatient-Stated?Author Reminders Care PlanOB RemindersNoOpen Scheduling, Backgrounddocumented as of this encounter Visit Diagnoses Not on filedocumented in this encounter Additional Health Concerns Active ProblemsNoted DateDiagnosed DateOB Nvsztuzfi46/29/2023 documented as of this encounter Care Teams Team MemberRelationshipSpecialtyStart [place] [address] [place] [address] PCP - GeneralFamily Medicine01/14/23documented as of this encounter
--- OUTSIDE RECORDS SUMMARY | 2025-07-04 18:46 | XMS_ITS | Encounter Summary ---
Author Organization [facility] Address [address] [place] [address] Phone Care Team Providers Care Systems Integration Analyst Name Role Phone Suzanne Uriarte MD Primary Care Provider + Encounter Details DateTypeDepartmentCare Team (Latest Contact Info)Kcpumsphyue27/08/2025Orders Only [facility] [address] [place] [address] Dr Chiu [address] [phone] Provider, MD Emili [facility] [place] [address] Social History Tobacco UseTypesPacks/DayYears UsedDateSmoking Tobacco: NeverPassive Smoke Exposure: NeverSmokeless Tobacco: CurrentAlcohol UseStandard Drinks/WeekComments Not Currently0 (1 standard drink = 0.6 oz pure alcohol)SociallyPHQ-2AnswerDate RecordedPatient Health Questionnaire-2 Wndes27808/21/2024UDIT-CAnswerDate RecordedQ1: How often do you have a [...] Plan of Treatment DateTypeDepartmentCare Team (Latest Contact Info)Xuufwytpyee98/18/2026 2:00 PM EDTOffice Visit [address] Chiu [address] [place] [phone] Laila Jin, CRITICAL CARE NURSE SPECIALIST-VECTOR CONTROL SPECIALIST [address] [place] [address] documented as of this encounter Procedures Procedure NamePriorityDate/TimeAssociated DiagnosisCommentsLAMOTRIGINERoutine 06/25/2025 11:10 AM ESTdocumented in this encounter Results * Lamotrigine (06/25/2025 11:10 AM EST)Specimen (Source)Anatomical Location / LateralityCollection Method / VolumeCollection TimeReceived TimeBloodVenous blood specimen / Unknown Narrative Authorizing ProviderResult TypeResult StatusHistorical Provider CARROL BLOOD ORDERABLESFinal Result documented in this encounter Visit Diagnoses Not on filedocumented in this encounter Additional Health Concerns AssessmentNoted TimeA fall risk assessment has been completed for the patient 06/20/2025 2:54 PM ESTdocumented as of this encounter Care Teams Team MemberRelationshipSpecialtyStart [place] [address] [address] PCP - General08/14/20documented as of this encounter
--- OUTSIDE RECORDS SUMMARY | 2025-07-04 18:46 | XMS_ITS | Encounter Summary ---
Author Organization [facility] Address [address] [place] [address] Phone Care Team Providers Care Mechanic Welder Name Role Phone Suzanne Uriarte MD Primary Care Provider + Encounter Details DateTypeDepartmentCare Team (Latest Contact Info)Jumisfzjkya25/10/2025Orders Only [facility] [address] [place] [address] Dr Chiu [address] [place] [phone] Nedra Deleon MD [address] [place] [address] Dr Chiu 2, [place] [address] Seizure (Multi) (Primary Dx) Social History Tobacco UseTypesPacks/DayYears UsedDateSmoking Tobacco: NeverPassive Smoke Exposure: NeverSmokeless Tobacco: CurrentAlcohol UseStandard Drinks/WeekComments Not Currently0 (1 standard drink = 0.6 oz pure alcohol)SociallyPHQ-2AnswerDate RecordedPatient Health Questionnaire-2 Wvuuh57208/21/2024UDIT-CAnswerDate RecordedQ1: How often do you have a [...] Plan of Treatment DateTypeDepartmentCare Team (Latest Contact Info)Ujlefbcyykt23/18/2026 2:00 PM EDTOffice Visit [address] Chiu [address] [place] [phone] Laila Jin, GEOTHERMAL POWERPLANT SUPERVISOR-INSURANCE EXECUTIVE [address] [place] [address] documented as of this encounter Visit Diagnoses Diagnosis Seizure (Multi)- Primary Other convulsions documented in this encounter Additional Health Concerns AssessmentNoted TimeA fall risk assessment has been completed for the patient 06/20/2025 2:54 PM ESTdocumented as of this encounter Care Teams Team MemberRelationshipSpecialtyStart [place] [address] [place] [address] PCP - General08/14/20documented as of this encounter
--- OUTSIDE RECORDS SUMMARY | 2025-07-04 18:46 | XMS_ITS | Encounter Summary ---
Author Organization [facility] Address [address] [place] [address] Phone Care Team Providers Care Technical Support Engineer Name Role Phone Suzanne Uriarte MD Primary Care Provider + Encounter Details DateTypeDepartmentCare Team (Latest Contact Info)Icewyceqqkq81/03/2025Travel Social History Tobacco UseTypesPacks/DayYears UsedDateSmoking Tobacco: NeverPassive Smoke Exposure: NeverSmokeless Tobacco: CurrentAlcohol UseStandard Drinks/WeekComments Not Currently0 (1 standard drink = 0.6 oz pure alcohol)SociallyPHQ-2AnswerDate RecordedPatient Health Questionnaire-2 Jfoqc10108/21/2024UDIT-CAnswerDate RecordedQ1: How often do you have a [...] as of this encounter Functional Status * Communicable Disease ScreeningQuestionAnswerDate of AssessmentAuthorDo you have any of the following new or worsening symptoms?Unable to spuelg6606/20/2025 2:50 PM Mei Serrato MA documented as of this encounter Plan of Treatment DateTypeDepartmentCare Team (Latest Contact Info)Bjzytndodwu95/18/2026 2:00 PM EDTOffice Visit [address] Chiu [address] [phone] Laila Jin, TOOLS PROGRAMMER-REGULATORY AFFAIRS COORDINATOR [address] [place] [address] documented as of this encounter Visit Diagnoses Not on filedocumented in this encounter Additional Health Concerns AssessmentNoted TimeA fall risk assessment has been completed for the patient 06/20/2025 2:54 PM ESTdocumented as of this encounter Care Teams Team MemberRelationshipSpecialtyStart [place] [address] [place] [address] PCP - General08/14/20documented as of this encounter
--- OUTSIDE RECORDS SUMMARY | 2025-07-04 18:46 | XMS_ITS | Clinical Summary ---
Author Organization [facility] Address [address] [place] [address] Phone Care Team Providers Care Humanities Professor Name Role Phone Suzanne Uriarte MD Primary Care Provider + Allergies No known active allergies Medications MedicationSigDispense QuantityRefillsLast FilledStart DateEnd DateStatus docosahexaenoic acid 200 mg capsule 5Active ferrous sulfate 325 mg (65 mg elemental) tablet Q2D15Active labetalol (Normodyne) 200 mg tablet Take 1 tablet (200 mg) by mouth 2 times a day.5Active lamoTRIgine (LaMICtal) 200 mg tablet Indications:Seizure (Multi)Take 1 tablet (200 mg) by mouth 2 times a day. 60 tablet 6Active labetalol (Normodyne) 300 mg tablet Indications:Benign essential hypertensionTAKE 1 TABLET (300 MG) BY MOUTH 2 TIMES A DAY. 60 tablet /02/2025Discontinued(Med List Cleanup) lamoTRIgine (LaMICtal) 100 mg tablet Indications:Unspecified convulsions (Multi)Take 1 tablet (100 mg) by mouth 2 times a day. 180 tablet /02/2025Discontinued(Ineffective) lamoTRIgine (LaMICtal) 150 mg tablet Discontinued(Cost of medication) lamoTRIgine (LaMICtal) 100 mg tablet Indications:Unspecified convulsions (Multi)Take 2 tablets (200 mg) by mouth 2 times a day. 120 tablet 1115108/28/2024Discontinued(Cost of medication) Active Problems ProblemNoted DateDiagnosed HomvFrhnccy00/25/2025 Assessment & Plan (09/14/2024 1:31 PM EST): We talked about healthy habits and sleep hygiene Orders: CBC; Future TSH with reflex to Free T4 if abnormal; Future Vitamin B12; Future Prcdekq9310/02/2022enign essential dxmjqqoypqvt62/17/2023 Assessment & Plan (09/14/2024 1:31 PM EST): [...] Primary Care - PCP - Established; Future Otuktsr3610/02/2022 Assessment & Plan (09/14/2024 1:31 PM EST): Good control. Follow up with neuro. Continue meds Vitamin B12 bmzaeaslfi62/17/2023 Assessment & Plan (09/14/2024 1:31 PM EST): Resolved Problems ProblemNoted DateDiagnosed DateResolved DateClass 1 obesity with body mass index (BMI) of 32.0 to 32.9 in adult/7157Fzzfiklryozb63/29/2023 09/12/2024bnormal weight gainllergic jsbuwgwr41/17/2023 05/03/2024acterial nmpinlwuj51ilateral chronic otitis media hest painhronic xuezmiltvaqx56/17/2023 05/03/2024hronic jevqoubfg36/onductive hearing loss, reqozgvgh15Elevated BP without diagnosis of hypertension Globus yilqmajkp47Hair loss10/02/2022 05/03/20246671Prssyinj48Tonsil stoneVaginal ewzwqpwix29 Encounters DateTypeDepartmentCare XpxpZzxqftnucni63/12/2025Scanned Document [facility] Primary Care [address] [place] [address] Suzanne Uriarte MD 06/27/2025Orders Only [address] Chiu [address] [place] [address] Nedra Deleon MD Seizure (Multi) (Primary Dx)06/27/2025Scanned Document [address] Chiu [address] [place] [address] Nedra Deleon MD 06/25/2025Documentation [address] Chiu [address] [place] [address] Laila Jin, SHERIFF DETECTIVE-BUILDING CLEANER 06/25/2025Orders Only [address] Chiu [address] [place] [address] Nedra Deleon MD Unspecified convulsions (Multi)06/25/2025Orders Only [address] Chiu [address] [place] [address] Emili Rosado MD 06/20/2025 3:[address] Chiu 2 [facility] [address] [place] [address] Laila Jin, SHERIFF DETECTIVE-BUILDING CLEANER Seizure (Multi) (Primary Dx) Discharge Disposition: Home06/20/20259884Ojsciw97/01/2025Orders Only [facility] Building [address] [place] [address] Dr Chiu 2 [facility] [address] [place] [address] Mei Soto MA Seizure (Multi)06/13/2025Telephone [facility] [address] [place] [address] Dr Chiu 2 [facility] [address] [place] [address] Mei Soto MA Medical Advice/Iemdllyf04/27/2025Orders Only [facility] [address] [place] [address] Dr Chiu 2 [facility] [address] [place] [address] Nedra Deleon MD Unspecified convulsions (Multi)04/18/2025Telephone [facility] Primary Care [address] [place] [address] Kim Fuentes MA 04/17/2025Refill [facility] Primary Care [address] [place] [address] Suzanne Uriarte MD Benign essential vihbecisnsbk96/23/2025Scanned Document [facility] Primary [facility] [address] [place] [address] Suzanne Uriarte MD from Last 3 Months Immunizations ImmunizationAdministration DatesNext QbjLZJ2404/16/1994,02/12/1994,1993DTaP, Dzsnljeghxx75/25/1999,01/07/1995Flu vaccine (IIV4), preservative free *Check age/dose*04/22/2023,04/21/2022,04/18/2021,05/06/2017Flu vaccine, quadrivalent, no egg protein, age 6 month or greater (FLUCELVAX)05/09/2019Hepatitis B vaccine, 19 yrs and under (RECOMBIVAX, ENGERIX)06/18/1994,01/08/1994,1993Hepatitis B vaccine, adult *Check Product/Dose*11/01/2023HiB PRP-OMP conjugate vaccine, pediatric (PEDVAXHIB)10/22/1994,04/16/1994,02/12/1994,1993Hib (HbOC) 03/12/1999Influenza, injectable, hafznyfhwkdr94/11/2018MMR vaccine, subcutaneous (MMR II)03/12/1999,10/22/1994Meningococcal ACWY-D (Menactra) 4-valent conjugate lbgvlvx9502/25/2007OPV03/12/1999,04/16/1994,02/12/1994,1993PPD Test 11/30/2014,12/15/2013Pneumococcal polysaccharide vaccine, 23-valent, age 2 [...] 0.6 oz pure alcohol)SociallyPHQ-2AnswerDate RecordedPatient Health Questionnaire-2 Ddvnn745/5AUDIT-CAnswerDate RecordedQ1: How often do you have a drink containing alcohol?Never06/20/2025Q2: How many drinks containing alcohol do you have on a typical day when you are drinking?Patient does not drink06/20/2025Q3: How often do you have six or more drinks on one occasion?Never06/20/2025 CommentsNoSex and Gender InformationValueDate RecordedSex Assigned at BirthNot on fileLegal QthGymsej71/25/2022 10:33 PM ESTGender IdentityNot on fileSexual OrientationNot on file Last Filed Vital Signs Vital SignReadingTime TakenCommentsBlood Npnsdadr734/9609/12/2024 12:28 PM EST Zurdr972709/12/2024 12:28 PM SQWBqxyfhceexj61.3 ??C (97.3 ??F)09/12/2024 12:28 PM ESTRespiratory Tzyo243507/31/2022 10:54 AM ESTOxygen Wscjxvrzpa558%12/24/2021 11:32 AM EDTInhaled Oxygen Concentration--Uxctyn95.1 kg (183 lb 4 oz)09/12/2024 12:28 PM ZHXVrbdoi493.3 cm (5' 9 )09/12/2024 12:28 PM ESTBody Mass Index27.06 09/12/2024 12:28 PM EST Plan of Treatment DateTypeDepartmentCare Team (Latest Contact Info)Xpvyhmlsfai67/18/2026 2:00 PM EDTOffice Visit [facility] Building [address] [place] [address] Dr Chiu [address] [phone] Laila Jin, SHERIFF DETECTIVE-BUILDING CLEANER [address] [place] [address] Health MaintenanceDue DateLast DoneCommentsHIV Iijqkjrng90/16/1994Hepatitis C Juzfkhtua37/16/2012HPV/Tubavz8810/01/2014HPV Vaccines (1 - 3-dose standard series) 2020Yearly Adult Wejhbmbt30/, 07/31/2022, 07/31/2022, Additional history existsInfluenza Vaccine (#1)/11/2022, 04/21/2022, 04/18/2021, Additional history existsCOVID-19 Vaccine ( - season) ervical Cancer Agzzfygyb63/20/2028Pap Smear03/07/2028 03/07/2025, 03/10/2023, 03/09/2023, Additional history existsLipid Panel DTaP/Tdap/Td Vaccines (9 - Td or Tdap), 02/16/2018, 03/02/2008, Additional history existsZoster Vaccines (1 of 2) 10/02/2043HIB AdrgeubwHtceevmnj60/25/1999, 10/22/1994, 04/16/1994, Additional history existsIPV EmfwaipiHtbfwpjna70/25/1999, 10/22/1994, 04/16/1994, Additional history existsMMR OiyrrawnOufsvrnos02/25/1999, 10/22/1994 Meningococcal VaccineAged Out02/25/2007No longer eligible based on patient's age to complete this topicPneumococcal Vaccine: Pediatrics and At-Risk Adult PatientsAged Out01/14/2016No longer eligible based on patient's age to complete this topicHepatitis B KiywiajbFyobovxvo15/15/2024, 06/18/1994, 01/08/1994, Additional history existsHepatitis A VaccinesAged OutNo longer eligible based on patient's age to complete this topicRotavirus VaccinesAged OutNo longer eligible based on patient's age to complete this topic Procedures Procedure NamePriorityDate/TimeAssociated DiagnosisCommentsLAMOTRIGINERoutine 06/25/2025 11:10 AM ESTLIPID SIQFBNzktqch84/25/2025 1:43 PM EST Well adult health check from Last 3 Months or Most Recently Relevant to Health Maintenance Results * Lamotrigine (06/25/2025 11:10 AM EST)Specimen (Source)Anatomical Location / LateralityCollection Method / VolumeCollection TimeReceived TimeBloodVenous blood specimen / Unknown Narrative Authorizing ProviderResult TypeResult StatusHistorical Provider CARROL BLOOD ORDERABLESFinal Result * Lipid Panel (09/12/2024 1:43 PM EST)ComponentValueRef RangeTest MethodAnalysis TimePerformed AtPathologist SignatureCHOLESTEROL, SCJAH234<200 mg/dLQuest Phoenixville HospitalHDL EBRMLQFAHOE74> OR = 50 mg/dLQuest Phoenixville HospitalTRIGLYCERIDES103<150 mg/dLQuest Phoenixville HospitalMqxqpjnmoprm-JnwbgfxpkbIPX-EVVURGLJGSW62ct/dL (calc)[facility] PhiladelphiaComment: Reference range: <100 Desirable range <100 mg/dL for primary prevention; <70 mg/dL for patients with CHD or diabetic patients with > or = 2 CHD risk factors. LDL-C is now calculated using the Dean calculation, which is a validated novel method providing better accuracy than the Friedewald equation in the estimation of LDL-C. Tres RODRIGEZ et al. STEPHANIE. 2013;310(19): 4341-8791 (http://education.[employer]/faq/EDW529) CHOL/HDLC RATIO3.2<5.0 (calc)[facility] PhiladelphiaNON HDL LMTARXNYRIW913<130 mg/dL (calc)[facility] Comment: For patients with diabetes plus 1 major ASCVD risk factor, treating to a non-HDL-C goal of <100 mg/dL (LDL-C of <70 mg/dL) is considered a therapeutic option. Specimen (Source)Anatomical Location / LateralityCollection Method / Volume Collection TimeReceived TimeBloodVenous blood specimen / Xnrnxux6009/12/2024 1:43 PM EST09/12/2024 1:[address] [facility] - 09/13/2024 6:42 AM EST FASTING:YES FASTING: YES Authorizing ProviderResult TypeResult StatusMonminesh BRANHAM BLOOD ORDERABLESFinal ResultPerforming OrganizationAddressCity/State/ZIP CodePhone Number [facility] [address] [facility], [address] [place] [phone] from Last 3 Months or Most Recently Relevant to Health Maintenance Insurance MemberSubscriberPlan / Payer (Effective 2025-Present)Name:Kavya Guerrero Relation to Subscriber:SelfName:Kavya Guerrero Payer ID:[id number] (NAIC) Type:Not on file Address: [address] Care Teams Team MemberRelationshipSpecialtyStart [place] [address] [address] [address] PCP - General08/14/20
--- OUTSIDE RECORDS SUMMARY | 2025-07-04 18:46 | XMS_ITS | Encounter Summary ---
Author Organization [facility] Address [address] [place] [address] Phone Care Team Providers Care Senior Ui Designer Name Role Phone Suzanne Uriarte MD Primary Care Provider + Encounter Details DateTypeDepartmentCare Team (Latest Contact Info)Ykgdzzycppy28/08/2025Orders Only [facility] Building [address] [place] [address] Dr Chiu [address] [address] Nedra Deleon MD [address] [place] [address] Dr Chiu 2, [place] [address] Unspecified convulsions (Multi) Social History Tobacco UseTypesPacks/DayYears UsedDateSmoking Tobacco: NeverPassive Smoke Exposure: NeverSmokeless Tobacco: CurrentAlcohol UseStandard Drinks/WeekComments Not Currently0 (1 standard drink = 0.6 oz pure alcohol)SociallyPHQ-2AnswerDate RecordedPatient Health Questionnaire-2 Fpwfl35408/21/2024UDIT-CAnswerDate RecordedQ1: How often do you have a [...] Plan of Treatment DateTypeDepartmentCare Team (Latest Contact Info)Pfjxuwhidzx86/18/2026 2:00 PM EDTOffice Visit [address] Chiu [address] [phone] Laila Jin, WASH AND GREASER-BALLING HEAD TENDER [address] [place] [address] NameTypePriorityAssociated DiagnosesOrder ScheduleLamotrigine levelLabRoutine Unspecified convulsions (Multi) Expected: 06/25/2025 (Approximate), Expires: 06/25/2026documented as of this encounter Visit Diagnoses Diagnosis Unspecified convulsions (Multi) documented in this encounter Additional Health Concerns AssessmentNoted TimeA fall risk assessment has been completed for the patient 06/20/2025 2:54 PM ESTdocumented as of this encounter Care Teams Team MemberRelationshipSpecialtyStart [place] [address] [address] PCP - General08/14/20documented as of this encounter
--- OUTSIDE RECORDS SUMMARY | 2025-07-04 18:46 | XMS_ITS | Encounter Summary ---
Author Organization [facility] Address [address] [place] [address] Phone Care Team Providers Care Clerical Supervisor Name Role Phone Suzanne Uriarte MD Primary Care Provider + Encounter Details DateTypeDepartmentCare Team (Latest Contact Info)Rmwoaujpmza29/10/2025Scanned Document [facility] Building [address] [place] [address] Dr Chiu [address] [address] Nedra Deleon MD [address] [place] [address] Dr Chiu 2, [place] [address] Social History Tobacco UseTypesPacks/DayYears UsedDateSmoking Tobacco: NeverPassive Smoke Exposure: NeverSmokeless Tobacco: CurrentAlcohol UseStandard Drinks/WeekComments Not Currently0 (1 standard drink = 0.6 oz pure alcohol)SociallyPHQ-2AnswerDate RecordedPatient Health Questionnaire-2 Lacps92908/21/2024UDIT-CAnswerDate RecordedQ1: How often do you have a [...] Plan of Treatment DateTypeDepartmentCare Team (Latest Contact Info)Zxozmiymsdl86/18/2026 2:00 PM EDTOffice Visit [address] Chiu [address] [place] [address] Laila Jin, BOARD SAW RUNNER-POSTAL WORKER [address] [place] [address] documented as of this encounter Visit Diagnoses Not on filedocumented in this encounter Additional Health Concerns AssessmentNoted TimeA fall risk assessment has been completed for the patient 06/20/2025 2:54 PM ESTdocumented as of this encounter Care Teams Team MemberRelationshipSpecialtyStart [place] [address] [address] PCP - General08/14/20documented as of this encounter
--- OUTSIDE RECORDS SUMMARY | 2025-07-04 18:46 | XMS_ITS | Encounter Summary ---
Author Organization [facility] Address [address] [facility] [place] [address] Care Team Providers Care School Bus Driver/Mechanic Name Role Phone Suzanne Uriarte MD Primary Care Provider +1- [phone] Encounter Details DateTypeDepartmentCare Team (Latest Contact Info)Zhwdjfuecfr81/15/2025Travel Social History Tobacco UseTypesPacks/DayYears UsedDateSmoking Tobacco: Never Assessed Estimated Date of CskgbhgeQhvgigaaThe25/02/2026ased on last menstrual period of 11/13/2024Sex and Gender InformationValueDate RecordedSex Assigned at BirthFemale 12/21/2022 8:22 PM EDTLegal YghIiyrkr53/15/2023 11:40 PM EDTGender Identity Vhtxpo6712/21/2022 8:22 PM EDTSexual VfxbnftjogeYfhetzvp84/05/2023 8:22 PM EDT documented as of this encounter Plan of Treatment DateTypeDepartmentCare Team (Latest Contact Info)Zemvpsmlrxc18/22/2025 4:00 PM ESTRoutine [facility] LAYTON [address] [place] [address] Roula Grullon PA [address] [facility] [address] [place], [facility]11 07/23/2025 3:00 PM ESTAncillary Procedure [facility] ALYTON [address] [place] [address] documented as of this encounter Goals GoalPatient Goal TypeAssociated ProblemsRecent ProgressPatient-Stated?Author Reminders Care PlanOB RemindersNoOpen Scheduling, Backgrounddocumented as of this encounter Visit Diagnoses Not on filedocumented in this encounter Additional Health Concerns Active ProblemsNoted DateDiagnosed DateOB Kprhopsfl29/29/2023 documented as of this encounter Care Teams Team MemberRelationshipSpecialtyStart Date[place] [address] [place], [place] [phone] PCP - GeneralFamily Medicine01/14/23documented as of this encounter
--- OUTSIDE RECORDS SUMMARY | 2025-07-04 18:46 | XMS_ITS | Encounter Summary ---
Author Organization [facility] Address [address] [place] [address] Phone Care Team Providers Care Literacy Coach Name Role Phone Suzanne Uriarte MD Primary Care Provider + Encounter Details DateTypeDepartmentCare Team (Latest Contact Info)Ovnkejpnrhn41/12/2025Scanned Document [facility] Primary Care [address] [address] [place] [address] [place] [address] Social History Tobacco UseTypesPacks/DayYears UsedDateSmoking Tobacco: NeverPassive Smoke Exposure: NeverSmokeless Tobacco: CurrentAlcohol UseStandard Drinks/WeekComments Not Currently0 (1 standard drink = 0.6 oz pure alcohol)SociallyPHQ-2AnswerDate RecordedPatient Health Questionnaire-2 Xmioh79208/21/2024UDIT-CAnswerDate RecordedQ1: How often do you have a [...] Plan of Treatment DateTypeDepartmentCare Team (Latest Contact Info)Mkuczopatbp55/18/2026 2:00 PM EDTOffice Visit [address] Chiu [address] [place] [address] Laila Jin, BENEFIT SPECIALIST-DIRECTOR COLLEGE [address] [place] [address] documented as of this encounter Visit Diagnoses Not on filedocumented in this encounter Additional Health Concerns AssessmentNoted TimeA fall risk assessment has been completed for the patient 06/20/2025 2:54 PM ESTdocumented as of this encounter Care Teams Team MemberRelationshipSpecialtyStart [place] [address] [place] [address] PCP - General08/14/20documented as of this encounter
[2025-07-04 19:24] VITALS: BP 116/56; PULSE 75
== END 2025-07-04 20:07 | disposition home or self-care (01) ==
LOC: US 18:42 → FBC 18:45
PROVIDERS: PCP Family Medicine; Visit Provider Obstetrics & Gynecology
DX: O16.3 Unspecified maternal hypertension, third trimester (principal); O99.013 Anemia complicating pregnancy, third trimester; R56.9 Unspecified convulsions; Z3A.33 33 weeks gestation of pregnancy
CPT/HCPCS: 76818

== ENCOUNTER 2025-07-07 10:51 | Outpatient (OUT) | payer BC, SELFPAY ==
--- OUTSIDE RECORDS SUMMARY | 2025-05-29 11:40 | XMS_ITS | Encounter Summary ---
Author Organization [facility] Address [address] [place] [address] Care Team Providers Care Hand Hardener Name Role Phone Suzanne Uriarte MD Primary Care Provider +1- [phone] Reason for Visit * ReasonCommentsRoutine Visit Encounter Details DateTypeDepartmentCare Team (Latest Contact Info)Tlopuemcido74/11/2025 11:40 AM ESTRoutine [facility] [address] [place] [address] Willis Chen DO [address] [place], [place] [phone] 28 weeks gestation of ([facility]); Third trimester ([facility]); Hypertension, unspecified type; Seizure ([facility]); Hemoglobin low Social History Tobacco UseTypesPacks/DayYears UsedDateSmoking Tobacco: Never Assessed Estimated Date of KldjyzltIhryxwttUdb48/02/2026ased on last menstrual period of 11/13/2024Sex and Gender InformationValueDate RecordedSex Assigned at BirthFemale 12/21/2022 8:22 PM EDTLegal OraIdzfeh26/15/2023 11:40 PM EDTGender Identity Owbbpq8912/21/2022 8:22 PM EDTSexual TwiiooezmprEwuleakm24/05/2023 8:22 PM EDT documented as of this encounter Last Filed Vital Signs Vital SignReadingTime TakenCommentsBlood Yiiddane277/6005/29/2025 11:37 AM EST Pulse--Temperature--Respiratory Rate--Oxygen Saturation--Inhaled Oxygen Concentration--Fzomnb71.8 kg (195 lb 12.8 oz)05/29/2025 11:37 AM ESTHeight--Body Mass Index28.9105 12:00 PM EDTdocumented in this encounter Progress Notes * Cyndi Andrade, GAME ENGINEER - 05/29/2025 11:40 AM EST Reason for [...] Problems Diagnosis Date Noted Hypertension 01/14/2023 Seizure ([facility]) 07/09/2021 Breech presentation, no version ([facility]) 07/29/2023 Resolved Ambulatory Problems Diagnosis [...] nursing note reviewed. Exam conducted with a airborne weapons technical manager present. Vitals: Estimated body mass index is 28.91 kg/m?? as calculated from the following: Height as of 11/16/22: 5' 9 . Weight as of this encounter: 195 lb 12.8 oz. BP: 100/60 Patient's last menstrual period was 11/13/2024. Assessment/Plan ICD-10-CM 1. 28 weeks gestation of ([facility]) Z3A.28 POCT urinalysis dipstick manually resulted 2. Third trimester ([facility]) Z34.93 POCT urinalysis dipstick manually resulted 3. Hypertension, unspecified type I10 4. Seizure ([facility]) R56.9 Return OB: Patient presents [...] Plan of Treatment DateTypeDepartmentCare Team (Latest Contact Info)Uamxasfravr05/22/2025 4:00 PM ESTRoutine [facility] [address] [place] [address] Roula Grullon PA [address] [place], [place] [phone] 07/23/2025 3:00 PM ESTAncillary Procedure [facility] [address] [place] [address] NameTypePriorityAssociated DiagnosesOrder ScheduleUS OB follow up transabdominal approachImagingRoutine Hypertension, unspecified type Seizure (HCC) 4 Occurrences starting 05/29/2025 until 09/26/2025, 1 completeddocumented as of this encounter Goals GoalPatient Goal TypeAssociated ProblemsRecent ProgressPatient-Stated?Author Reminders Care PlanOB RemindersNoOpen Scheduling, Backgrounddocumented as of this encounter Procedures Procedure NamePriorityDate/TimeAssociated DiagnosisCommentsPOCT URINALYSIS DFKYLTCWCozoinl02/11/2025 11:46 AM EST 28 weeks gestation of ([facility]) Third trimester ([facility]) documented in this encounter Results * OB [...] / LateralityCollection Method / Volume Collection TimeReceived OttfJogfy09/11/2025 11:46 AM EST Narrative Authorizing ProviderResult TypeResult StatusCorey April DOPOINT OF CARE TEST ENTER/EDIT ORDERABLESFinal Result documented in this encounter Visit Diagnoses Diagnosis 28 weeks gestation of ([facility]) Third trimester ([facility]) state, incidental Hypertension, unspecified type Seizure (HCC) Other convulsions Hemoglobin low Unspecified anemia Hypertension, unspecified type Seizure (HCC) Other convulsions documented in this encounter Additional Health Concerns Active ProblemsNoted DateDiagnosed DateOB Xgrmfwjgr61/29/2023 documented as of this encounter Care Teams Team MemberRelationshipSpecialtyStart [place] [address] [place], [place] [phone] PCP - GeneralFamily Medicine01/14/23documented as of this encounter
--- OUTSIDE RECORDS SUMMARY | 2025-06-12 18:05 | XMS_ITS | Continuity of Care Document ---
Author Organization [facility] Address [address] [place] [address] Phone Care Team Providers Care Network Security Engineer Name Role Phone Norma Victor Unavailable Unavailable [...] BP >=130-139MM HG MED LIST DOCD IN [facility] RVW MEDS BY RX/DR IN [facility] PT TOBACCO USE DONE RCVD TLK Pt inelig neg scrn depres ROUTINE VENIPUNCTURE TB Read TB INTRADERMAL TEST IMMUNIZATION ADMIN HEP B VACCINE, ADULT, IM IMMUNIZATION ADMIN TDAP VACCINE >7 IM Covid-19 Vaccine Administration 023 Covid-19 Vaccine, 50 Mcg Moderna 12y Plu s PREV VISIT, EST, AGE 18-39 DIAST BP 80-89 MM HG SYST BP < 130 MM HG MED LIST DOCD IN [facility] RVW MEDS BY RX/DR IN [facility] TOBACCO NON-USER Pt inelig neg scrn [...] 23:05:00 9.3 [CFU]/mL 3.8-11.6 N Final Performed by:[facility] ([id number])[address] [place] [address] Uncorrected WBC 23:05:00 9.3 10*3/uL 3.8-11.6 N Final Performed by:[facility] ([id number])[address] [facility] [place] [address] Red Blood Count 23:05:00 3.20 10*6/uL 3.60-5.00 L Final Performed by:[facility] ([id number])[address] [place] [address] Hemoglobin 23:05:00 9.7 g/dL 11.8-15.4 L Final Performed by:[facility] ([id number])[address] [place] [address] Hematocrit 23:05:00 28.2 % 34.0-46.4 L Final Performed by:[facility] ([id number])[address] [place] [address] Mean Corpuscular Volume 23:05:00 88.3 fL 80-100 N Final Performed by:[facility] ([id number])[address] [place] [address] Mean Corpuscular Hemoglobin 23:05:00 30.4 pg 24.7-34.3 N Final Performed by:[facility] ([id number])[address] [place] [address] Mean Corpuscular HGB Conc 23:05:00 34.4 g/dL 32.0-35.0 N Final Performed by:[facility] ([id number])[address] [place] [address] Red Cell Distribution Width 23:05:00 12.5 % 11.9-15.3 N Final Performed by:[facility] ([id number])[address] [place] [address] Platelet Count 23:05:00 255 10*3/uL 150-450 N Final Performed by:[facility] ([id number])[address] [place] [address] Mean Platelet Volume 23:05:00 7.3 fL 6.3-10.7 N Final Performed by:[facility] ([id number])[address] [place] [address] Monocyte Distribution Width 23:05:00 18.67 % 0.00-20.00 N Final Performed by:[facility] ([id number])[address] [place] [address] Neutrophils % (Auto) 23:05:00 65.1 % . Final Performed by:[facility] ([id number])[address] [place] [address] Lymphocytes % (Auto) 23:05:00 25.4 % . Final Performed by:[facility] ([id number])[address] [place] [address] Monocytes % (Auto) 23:05:00 9.2 % . Final Performed by:[facility] ([id number])[address] [place] [address] Eosinophils % (Auto) 23:05:00 0.1 % . Final Performed by:[facility] ([id number])[address] [place] [address] Basophils % (Auto) 23:05:00 0.2 % . Final Performed by:[facility] ([id number])[address] [place] [address] NRBC% 23:05:00 0.1 /100{WBC } 0-0.5 N Final Performed by:[facility] ([id number])[address] [place] [address] Neutrophils # (Auto) 23:05:00 6.1 10*3/uL 1.8-7.7 N Final Performed by:[facility] ([id number])[address] [place] [address] Lymphocytes # (Auto) 025 23:05:00 2.4 10*3/uL 1.00-4.8 N Final Performed by:[facility] ([id number])[address] [place] [address] Monocytes # (Auto) 025 23:05:00 0.9 10*3/uL 0.0-0.8 H Final Performed by:[facility] ([id number])[address] [place] [address] Eosinophils # (Auto) 025 23:05:00 0.0 10*3/uL 0.0-0.45 N Final Performed by:[facility] ([id number])[address] [place] [address] Basophils # (Auto) 025 23:05:00 0.0 10*3/uL 0.0-0.2 N Final PERFORMED BY:[facility] [place]ORO[address]zbietaLA[place], [place] [phone] 7PATHOLOGIST MEDICAL DIRECTORIMTIAZ GUAN M.D.Performed by:[facility] ([id number])[address] [place] [address] Advance Directives Directive Yes / No Effective Date File Name No Information Encounters Encounter Description Practice Location Reason(s) For Visit Diagnoses Date Provider Providers Copied on Encounter [facility], [address] [place] [address], [id number] , tel:[phone] No Information 5 Lester HERIBERTO Green. [address] [place] [address], [address], . tel:[phone] OFFICE/OUTPA TIENT VISIT, EST [facility], [address] [place] [address], [id number] , tel:[phone] EHOVE est care (chief complaint)La b draw (chief complaint) Need for hepatitis C screening testScreening for diabetes mellitusScreening for endocrine disorderScreening for lipid disordersScreening for HIV (human immunodeficiency virus)Body mass index [BMI] 28.0-28.9, adultEssential hypertensionHistory of seizure 4 Jason Diaz. [address] [place] [address], [id number], [place]. tel:[phone] [facility], [address] [place] [address], [id number] , [place] tel: [phone] [facility] Hep B Titer (chief complaint) Encounter for antibody response examination 4 Monet Chen. [address], [place], [id number] , [place]. tel: [phone] [facility], [address] [place] [address], [id number] , [place] tel: [phone] [facility] No Information 4 Monet Chen. [address], [place], [id number] , [place]. tel: [phone] [facility], [address] [place] [address], [id number] , [place] tel: [phone] [facility] Encounter for screening for respiratory tuberculosis 4 Monet Chen. [address] [place] [address], [id number] , [place]. tel: [phone] [facility], [address] [place] [address], [id number] , [place] tel: [phone] [facility] No Information 3 Monet Chen. [address] [place] [address], [id number] , [place]. tel: [phone] [facility], [address] [place] [address], [id number] , [place] tel: [phone] [facility] No Information 3 Monet Chen. [address] [place] [address], [id number] , [place]. tel: [phone] PREV VISIT, EST, AGE 18-39 [facility], [address] [place] [address], [id number] , [place] tel: [phone] [facility] Pillars Appointment (chief complaint) Body mass index [BMI] 31.0-31.9, adultEncntr for general adult medical exam w/o abnormal findings 3 Bernardo Montenegro. [address], [place], [id number] , [place]. tel: [phone] [facility], [address], [place], [id number] , [place] tel: [phone] [facility] No Information 3 Monet Chen. [address], [place], [id number] , [place]. tel: [phone] OFFICE/OUTPA TIENT VISIT, EST [facility], [address], [place], [id number] , [place] tel: [phone] [facility] Problem Visit (chief complaint) Morning sicknessBody mass index [BMI]30.0-30.9, adult 3 Bernardo Montenegro. [address], [place], [id number] , [place]. tel: [phone] [facility], [address] [place] [address], [id number] , [place] tel: [phone] [facility] Encounter For Screening For Covid-19 3 Monet ARTEAGA Bryn. [address], [place], [id number] , [place]. tel: [phone] [facility], [address] [place] [address], [id number] , [place] tel: [phone] [facility] Lab draw (chief complaint) Encounter for antibody response examination 3 Monet Chen. [address], [place], [id number] , [place]. tel: [phone] [facility], [address] [place] [address], [id number] , [place] tel: [phone] [facility] No Information 3 Monet Chen. [address] [place] [address], [id number] , [place]. tel: [phone] [facility], [address] [place] [address], [id number] , [place] tel: [phone] [facility] Encounter for screening for respiratory tuberculosis 3 Monet Chen. [address], [place], [id number] , [place]. tel: [phone] [facility], [address], [place], [id number] , [place] tel: [phone] [facility] Encounter For Screening For Covid-19 2 Viscchuy Chen. [address], [place], [id number] , [place]. tel: [phone] [facility], [address] [place] [address], [id number] , [place] tel: [phone] 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 [address] [place], [address], [place]. tel: [phone] [facility], [address] [place] [address], [id number] , [place] tel: [phone] [facility] No Information 2 Monet Chen. [address], [place], [id number] , [place]. tel: [phone] OFFICE/OUTPA TIENT VISIT, [facility], [address] [place] [address], [id number] , [place] tel: [phone] [facility] Bug Bite (chief complaint) Insect bite without infectionSkin rash 2 Jose Antonio NORWOODP-C Vandana. [address] [place], [address], [place]. tel: [phone] OFFICE/OUTPA TIENT VISIT, [facility], [address] [place] [address], [id number] , [place] tel: [phone] [facility] otalgia (chief complaint) Body mass index [BMI] 32.0-32.9, adultOtalgia of left earLeft acute otitis media 2 Jose Antonio DELEON-Darlene Ross. [address] [place], [address], [place]. tel: [phone] PREV VISIT, EST, AGE 18-39 [facility], [address], [place], [id number] , [place] tel: [phone] [facility] pillars (chief complaint) Encntr for general adult medical exam w/o abnormal findingsEssential hypertensionCough, persistent 2 Mik Green. [address] [place], [address], [place]. tel: [phone] [facility], [address] [place] [address], [id number] , [place] tel: [phone] [facility] Encounter For Screening For Covid-19 2 Visci DO Bryn. [address], [place], [id number] , [place]. tel: [phone] [facility], [address] [place] [address], [id number] , [place] tel: [phone] [facility] No Information 1 Visci DO Bryn. [address], [place], [id number] , [place]. tel: [phone] [facility], [address] [place] [address], [id number] , [place] tel: [phone] [facility] No Information 1 Visci DO Bryn. [address] [place] [address], [id number] , [place]. tel: [phone] PREV VISIT, NEW, AGE 18-39 [facility], [address], [place], [id number] , [place] tel: [phone] [facility] Pillars (chief complaint)La b draw (chief complaint) Encntr for general adult medical exam w/o abnormal findingsHistory of seizure Mar- 1 Mik Green. [address] [place] [address] [place], [address], [place]. tel: [phone] [facility], [address], [place], [id number] , [place] tel: [phone] [facility] No Information 1 Monet Chen. [address], [place], [id number] , [place]. tel: [phone] [facility], [address] [place] [address], [id number] , [place] tel: [phone] [facility] No Information 1 Monet Chen. [address] [place] [address], [id number] , [place]. tel: [phone] [facility], [address] [place] [address], [id number] , [place] tel: [phone] [facility] Encounter for screening for other viral disease 1 Monet Chen. [address], [place], [id number] , [place]. tel: [phone] [facility], [address] [place] [address], [id number] , [place] tel: [phone] [facility] No Information 1 Monet Chen. [address] [place] [address], [id number] , [place]. tel: [phone] Referring Provider: [facility], [address] [place] [address], [id number] , [place] tel: [phone] [facility] Encounter for screening for respiratory tuberculosis 0 Monet Chen. [address] [place] [address], [id number] , [place]. tel: [phone] Family History Family Member Type Diagnosis Age [...] Insurance type Covered democrat ID Authoriza tiluis(s) [employer] [place] [id number] [employer] [place] [id number] [employer] [place] [id number] [employer] [place] [id number] [employer] [place] [id number] [employer] [place] [id number] Social History Type Description Quantity Date Captured Comments Sex Female Smoking Status No Information Sexual Orientation Straight or heterosexual Gender Identity Female Chief Complaint And Reason For Visit No Information Reason For Referral Reason For Referral No Information Plan Of Treatment Date Type Action Status Goal HPV. Due on due Goal PRAPARE ASSESSMENT. Due on A due Goal Hepatitis C screening. Due o n due Goal Depression screening. Due on due Goal Tdap due Goal Lipid panel. Due on 034 due Goal Influenza vaccine. Due on due Goal Unhealthy drug use screening . Due on due Goal Tdap Vaccine. Due on 2032 due Goal Urinalysis. Due on 24 due Goal ECG. Due on due Goal [...] Goal ECG. Due on due Goal Tdap Vaccine. Due on 2022 due Goal Lipid panel. Due on due Goal PRAPARE ASSESSMENT. Due on N due Goal Hep A. Due on du [...] Lifestyle education regardin g diet completed Goal Urinalysis. Due on due Goal Influenza vaccine. Due on Se due Goal Depression screening. Due on due Goal ECG. Due on due Goal RLP. Due on due Goal Tdap. Due on due Goal Lipid panel. Due on due Goal PAP. Due on due Goal Tdap Vaccine. Due on 2022 due Goal PRAPARE ASSESSMENT. Due on S due Goal Lipid panel. Due on due [...] was switched from Lisinopril to Labetolol by Dental Appliance Mechanic (Dr. Sheppard) when she was about 4 [...] drawn tomorrow.Women's Health: ObviouslyFlu: Already has it//Josiah RNOB/CRANIOLOGIST for - Dr. Bonilla in [facility] concerns today. Pillars labs scheduled for [...] prior without need for zofran use. RGosumacarlee [facility] Lab draw Pt presents for lab draw. Labs drawn LAC. 2x2 and bandage applied. //JANNET Concepcion Bug Bite Pt here today fo r bug bite to upper Left leg. Pt sates she was bitten yesterday but it is more red and swollen since yesterday. Pt sates it itches. No other issues or concernsTGrodi WEDDING TRANSPORTATION DRIVER I have reviewed all above information and agree. Was driving with top down on vehicle was and either bit by a bug or stung by a bee to left upper inner thigh. Was wearing shorts at the time. NKA that pt is aware of. Happened yesterday. No fever/chills. Area getting larger, warmer and redder. Was sent to office by supervisor furnace room to assess if ATB are needed. No [...] needs today. Kamilla FLETCHER pillars Here for [facility] s exam to complete employee pillars and to establish care. Last seen PCP from [place] in September 2021. History of new onset [...] over 1 yr agoWoman's health-seeing provider [facility], Aug 2021ANGEL [place] Lab draw Labs drawn from left AC x 1 attempt, tolerated well, pressure dressing applied to area. Fredi Bettencourt RN Pillars Patient presents for an A pillars physical exam, pt has established dental and optometry. No other complaints. DesmondAmayamickybianca noted. Has established family provider, Suzanne Uriarte. Next appt is in May. Thinking of transferring care here to [facility]. Recent history of sudden onset seizure approx 1 year ago while sleeping. Testing completed (MRI, EEG) with Nedra Mccray with [facility]. Taking medications as prescribed. No recent seizure activity. Denies any concerns at this time. Vision-Recently prescribed new glassesDental- few yearsWEasyLink- appt yesterdayANGEL [place] Functional Status Date Functional [...]
--- OUTSIDE RECORDS SUMMARY | 2025-06-27 15:00 | XMS_ITS | Encounter Summary ---
Author Organization [facility] Address [address] [place] [address] Care Team Providers Care Bookkeeping Service Sales Agent Name Role Phone Suzanne Uriarte MD Primary Care Provider +1- [phone] Reason for Visit * ReasonCommentsRoutine Visit Encounter Details DateTypeDepartmentCare Team (Latest Contact Info)Yvpycadqdiz14/10/2025 3:00 PM ESTRoutine [facility] [address] [phone] Willis Chen DO [address] [place] [place], [place] [phone] Third trimester ([facility] 32 weeks gestation of ([facility]); Seizure (HCC); Hypertension, unspecified type; Antepartum anemia ([facility]); SGA (small for gestational age) ([facility] Social History Tobacco UseTypesPacks/DayYears UsedDateSmoking Tobacco: Never Assessed Estimated Date of EtontfefQyybnbhmPjo15/02/2026Based on last menstrual period of 11/13/2024Sex and Gender InformationValueDate RecordedSex Assigned at BirthFemale 12/21/2022 8:22 PM EDTLegal DnuArizkq84/15/2023 11:40 PM EDTGender Identity Zntdyb2312/21/2022 8:22 PM EDTSexual ZnstjywnxkfRyhedwoa93/05/2023 8:22 PM EDT documented as of this encounter Last Filed Vital Signs Vital SignReadingTime TakenCommentsBlood Kpqrertn478/7606/27/2025 3:16 PM EST Pulse--Temperature--Respiratory Rate--Oxygen Saturation--Inhaled Oxygen Concentration--Cojzka12.6 kg (197 lb 8 oz)06/27/2025 3:16 PM [...] Problems Diagnosis Date Noted Hypertension 01/14/2023 Seizure ([facility]) 07/09/2021 Breech presentation, no version ([facility]) 07/29/2023 Resolved Ambulatory Problems Diagnosis Date Noted [...] nursing note reviewed. Exam conducted with a early intervention specialist present. Vitals: Estimated body mass index is 29.17 kg/m?? as calculated from the following: Height as of 11/16/22: 5' 9 . Weight as of this encounter: 197 lb 8 oz. BP: 122/76 Patient's last menstrual period was 11/13/2024. Assessment/Plan ICD-10-CM 1. Third trimester ([facility]) Z34.93 POCT urinalysis dipstick manually resulted 2. 32 weeks gestation of ([facility]) Z3A.32 3. Seizure ([facility]) R56.9 4. Hypertension, unspecified type I10 5. Antepartum anemia ([facility]) O99.019 6. SGA (small for gestational age) ([facility]) P05.10 Assessment/Plan Return OB: Patient presents today [...] Plan of Treatment DateTypeDepartmentCare Team (Latest Contact Info)Oqumbiebltg25/22/2025 4:00 PM ESTRoutine [facility] [address] [address] Roula Grullon PA [address] [place], [place] [phone] 07/23/2025 3:00 PM ESTAncillary Procedure [facility] [address] [address] NameTypePriorityAssociated DiagnosesOrder ScheduleUS biophysical profile w non stress testImagingRoutine Seizure (HCC) Hypertension, unspecified type Antepartum anemia ([facility]) SGA (small for gestational age) ([facility]) Expected: 06/27/2025 (Approximate), Expires: 12/26/2025documented as of this encounter Goals GoalPatient Goal TypeAssociated ProblemsRecent ProgressPatient-Stated?Author Reminders Care PlanOB RemindersNoOpen Scheduling, Backgrounddocumented as of this encounter Procedures Procedure NamePriorityDate/TimeAssociated DiagnosisCommentsPOCT URINALYSIS YZUYMHZICnjvtbk85/10/2025 3:20 PM EST Third trimester ([facility]) documented in this encounter Results * (ABNORMAL) [...] Location / LateralityCollection Method / VolumeCollection TimeReceived QslrKhzyv97/10/2025 3:20 PM EST Narrative Authorizing ProviderResult TypeResult StatusCorey April DOPOINT OF CARE TEST ENTER/EDIT ORDERABLESFinal Result documented in this encounter Visit Diagnoses Diagnosis Third trimester ([facility]) state, incidental 32 weeks gestation of ([facility]) Seizure (HCC) Other convulsions Hypertension, unspecified type Antepartum anemia ([facility]) SGA (small for gestational age) ([facility]) Hxeal-nih-fdfli without mention of malnutrition, unspecified (weight) documented in this encounter Additional Health Concerns Active ProblemsNoted DateDiagnosed DateOB Oqprzxxbr41/29/2023 documented as of this encounter Care Teams Team MemberRelationshipSpecialtyStart [place] [address] [address], [place] [phone] PCP - GeneralFamily Medicine01/14/23documented as of this encounter
--- OUTSIDE RECORDS SUMMARY | 2025-07-07 10:55 | XMS_ITS | Encounter Summary ---
Author Organization [facility] Address [address] [place] [address] Phone Care Team Providers Care Overseamer Name Role Phone Suzanne Uriarte MD Primary Care Provider + Encounter Details DateTypeDepartmentCare Team (Latest Contact Info)Pjmurudbtrn74/01/2025Orders Only [facility] [address] [place] [address] Dr Chiu [address] [phone] Mei Soto MA Seizure (Multi) Social History Tobacco UseTypesPacks/DayYears UsedDateSmoking Tobacco: NeverPassive Smoke Exposure: NeverSmokeless Tobacco: CurrentAlcohol UseStandard Drinks/WeekComments Not Currently0 (1 standard drink = 0.6 oz pure alcohol)SociallyPHQ-2AnswerDate RecordedPatient Health Questionnaire-2 Hqogd82208/21/2024UDIT-CAnswerDate RecordedQ1: How often do you have a [...] Plan of Treatment DateTypeDepartmentCare Team (Latest Contact Info)Vgqhetkjlma84/18/2026 2:00 PM EDTOffice Visit [facility] [address] [place] [address] Dr Chiu [address] [phone] Laila Jin, ADVANCED RESEARCH PROGRAMS DIRECTOR-OPERATIONS ASST [address] [place] [address] documented as of this encounter Visit Diagnoses Diagnosis Seizure (Multi) Other convulsions documented in this encounter Additional Health Concerns AssessmentNoted TimeA fall risk assessment has been completed for the patient 05/03/2024 9:18 AM EDTdocumented as of this encounter Care Teams Team MemberRelationshipSpecialtyStart [place] [address] [place] [address] PCP - General08/14/20documented as of this encounter
[2025-07-07 10:56] VITALS: BP 110/55; PULSE 72
--- OUTSIDE RECORDS SUMMARY | 2025-07-07 10:56 | XMS_ITS | Encounter Summary ---
Author Organization [facility] Address [address] [place] [address] Phone Care Team Providers Care Nuclear Cardiology Technologist Name Role Phone Suzanne Uriarte MD Primary Care Provider + Encounter Details DateTypeDepartmentCare Team (Latest Contact Info)Gxhvedoazhm07/08/2025 Documentation [facility] [address] [place] [address] Dr Chiu [address] [phone] Laila Jin, MEDICAL DIRECTOR/HEAD TEAM PHYSICIAN-PATIENT CARE MANAGER [address] [place] [id number] Social History Tobacco UseTypesPacks/DayYears UsedDateSmoking Tobacco: NeverPassive Smoke Exposure: NeverSmokeless Tobacco: CurrentAlcohol UseStandard Drinks/WeekComments Not Currently0 (1 standard drink = 0.6 oz pure alcohol)SociallyPHQ-2AnswerDate RecordedPatient Health Questionnaire-2 Tfmbb83608/21/2024UDIT-CAnswerDate RecordedQ1: How often do you have a [...] Plan of Treatment DateTypeDepartmentCare Team (Latest Contact Info)Vgqevwjfokd52/18/2026 2:00 PM EDTOffice Visit [address] Chiu [address] [phone] Laila Jin APRN-CNP [address] [place] [address] documented as of this encounter Visit Diagnoses Not on filedocumented in this encounter Additional Health Concerns AssessmentNoted TimeA fall risk assessment has been completed for the patient 06/20/2025 2:54 PM ESTdocumented as of this encounter Care Teams Team MemberRelationshipSpecialtyStart [place] [address] [place] [address] PCP - General08/14/20documented as of this encounter
--- OUTSIDE RECORDS SUMMARY | 2025-07-07 10:56 | XMS_ITS | Clinical Summary ---
Author Organization [facility] Address [address] [place] [address] Phone Care Team Providers Care Tool Specialist Name Role Phone Suzanne Uriarte MD [...] 1115108/28/2024Discontinued(Cost of medication) Active Problems ProblemNoted DateDiagnosed VlkyWuhomue62/25/2025 Assessment & Plan (09/14/2024 1:31 PM EST): We talked about healthy habits and sleep hygiene Orders: CBC; Future TSH with reflex to Free T4 if abnormal; Future Vitamin B12; Future Ralombl3810/02/2022enign essential jfwezkhzwkna32/17/2023 Assessment & Plan (09/14/2024 1:31 PM EST): [...] Primary Care - PCP - Established; Future Bdrhwjv4710/02/2022 Assessment & Plan (09/14/2024 1:31 PM EST): Good control. Follow up with neuro. Continue meds Vitamin B12 jsrpqtoilh83/17/2023 Assessment & Plan (09/14/2024 1:31 PM EST): Resolved Problems ProblemNoted DateDiagnosed DateResolved DateClass 1 obesity with body mass index (BMI) of 32.0 to 32.9 in adult/8381Nhcnhoecrlsi20/29/2023 09/12/2024bnormal weight gainllergic /17/2023 05/03/2024acterial wzaltenzc35ilateral chronic otitis media hest painhronic dxdpuhietpfe58/17/2023 05/03/2024hronic cmzvekzga31/onductive hearing loss, iiczlxqxq95Elevated BP without diagnosis of hypertension Globus qldihxkaz35Hair loss10/02/2022 05/03/20241492Xjhezcbm78Tonsil stoneVaginal Encounters DateTypeDepartmentCare WjqfTmicsxpjpxz29/12/2025Scanned Document [facility] Primary Care [address] [place] [address] Suzanne Uriarte MD 06/27/2025Orders Only [address] Chiu 2 [facility] [place] [address] Nedra Deleon MD Seizure (Multi) (Primary Dx)06/27/2025Scanned Document [address] Chiu 2 [place] [address] Nedra Deleon MD 06/25/2025Documentation [address] Chiu 2 [place] [address] [place] [address] Laila Jin, PRESS BRAKE OPERATOR-ENVIRONMENTAL SAMPLER 06/25/2025Orders Only [address] Chiu 2 [place] [address] [place] [address] Nedra Deleon MD Unspecified convulsions (Multi)06/25/2025Orders Only [address] Chiu 2 [place] [address] [place] [address] Emili Rosado MD 06/20/2025 3:[address] Chiu 2 [facility] [address] [place] [address] Laila Jin, PRESS BRAKE OPERATOR-ENVIRONMENTAL SAMPLER Seizure (Multi) (Primary Dx) Discharge Disposition: Home06/20/20257230Rdpicc98/01/2025Orders Only [facility] Building [address] [place] [address] Dr Chiu 2 [facility] [address] [place] [address] Mei Soto MA Seizure (Multi)06/13/2025Telephone [facility] [address] [place] [address] Dr Chiu 2 [facility] [address] [place] [address] Mei Soto MA Medical Advice/Zeghixnl67/27/2025Orders Only [facility] [address] [place] [address] Dr Chiu 2 [facility] [address] [place] [address] Nedra Deleon MD Unspecified convulsions (Multi)04/18/2025Telephone [facility] Primary Care [address] [place] [address] Kim Fuentes MA 04/17/2025Refill [facility] Primary Care [address] [place] [address] Suzanne Uriarte MD Benign essential krqtbblbydmw54/23/2025Scanned Document [facility] Primary [facility] [address] [place] [address] Suzanne Uriarte MD from Last 3 Months Immunizations ImmunizationAdministration DatesNext SulERB6604/16/1994,02/12/1994,1993DTaP, Omdusdgwurs33/25/1999,01/07/1995Flu vaccine (IIV4), preservative free *Check age/dose*04/22/2023,04/21/2022,04/18/2021,05/06/2017Flu vaccine, quadrivalent, no egg protein, age 6 month or greater (FLUCELVAX)05/09/2019Hepatitis B vaccine, 19 yrs and under (RECOMBIVAX, ENGERIX)06/18/1994,01/08/1994,1993Hepatitis B vaccine, adult *Check Product/Dose*11/01/2023HiB PRP-OMP conjugate vaccine, pediatric (PEDVAXHIB)10/22/1994,04/16/1994,02/12/1994,1993Hib (HbOC) 03/12/1999Influenza, injectable, upqtqckzljwd33/11/2018MMR vaccine, subcutaneous (MMR II)03/12/1999,10/22/1994Meningococcal ACWY-D (Menactra) 4-valent conjugate hdzletq6302/25/2007OPV03/12/1999,04/16/1994,02/12/1994,1993PPD Test 11/30/2014,12/15/2013Pneumococcal polysaccharide vaccine, 23-valent, age 2 [...] 0.6 oz pure alcohol)SociallyPHQ-2AnswerDate RecordedPatient Health Questionnaire-2 Amqym310/5AUDIT-CAnswerDate RecordedQ1: How often do you have a drink containing alcohol?Never06/20/2025Q2: How many drinks containing alcohol do you have on a typical day when you are drinking?Patient does not drink06/20/2025Q3: How often do you have six or more drinks on one occasion?Never06/20/2025 CommentsNoSex and Gender InformationValueDate RecordedSex Assigned at BirthNot on fileLegal DiiCysopr15/25/2022 10:33 PM ESTGender IdentityNot on fileSexual OrientationNot on file Last Filed Vital Signs Vital SignReadingTime TakenCommentsBlood Kykisbkc754/9609/12/2024 12:28 PM EST Yvwut249209/12/2024 12:28 PM BOXHpxduimzczc99.3 ??C (97.3 ??F)09/12/2024 12:28 PM ESTRespiratory Mfoi279507/31/2022 10:54 AM ESTOxygen Gwovuzjxtq543%12/24/2021 11:32 AM EDTInhaled Oxygen Concentration--Ocnjde44.1 kg (183 lb 4 oz)09/12/2024 12:28 PM PZQFzlxav772.3 cm (5' 9 )09/12/2024 12:28 PM ESTBody Mass Index27.06 09/12/2024 12:28 PM EST Plan of Treatment DateTypeDepartmentCare Team (Latest Contact Info)Koxbwrswoep04/18/2026 2:00 PM EDTOffice Visit [facility] Building [address] [place] [address] Dr Chiu [address] [phone] Laila Jin, PRESS BRAKE OPERATOR-ENVIRONMENTAL SAMPLER [address] [place] [address] Health MaintenanceDue DateLast DoneCommentsHIV Kxfuzvtdu76/16/1994Hepatitis C Tltkocmhr71/16/2012HPV/Tyfayp1910/01/2014HPV Vaccines (1 - 3-dose standard series) 2020Yearly Adult Lchcotnt07/27/101652/, 07/31/2022, 07/31/2022, Additional history existsCOVID-19 Vaccine ( season)2025 05/27/2023Influenza Vaccine (#1)/11/2022, 04/21/2022, 04/18/2021, Additional history existsCervical Cancer Aejfbfypz06/20/2028Pap Smear03/07/2028 03/07/2025, 03/10/2023, 03/09/2023, Additional history existsLipid Panel DTaP/Tdap/Td Vaccines (9 - Td or Tdap), 02/16/2018, 03/02/2008, Additional history existsZoster Vaccines (1 of 2) 10/02/2043HIB AobnbfpwVznylqvwb21/25/1999, 10/22/1994, 04/16/1994, Additional history existsIPV EhwbmnuySanniabrx85/25/1999, 10/22/1994, 04/16/1994, Additional history existsMMR JovgqnznKsqnzcpfa46/25/1999, 10/22/1994 Meningococcal VaccineAged Out02/25/2007No longer eligible based on patient's age to complete this topicPneumococcal Vaccine: Pediatrics and At-Risk Adult PatientsAged Out01/14/2016No longer eligible based on patient's age to complete this topicHepatitis B KdvqdtbzTibmeands34/15/2024, 06/18/1994, 01/08/1994, Additional history existsHepatitis A VaccinesAged OutNo longer eligible based on patient's age to complete this topicRotavirus VaccinesAged OutNo longer eligible based on patient's age to complete this topic Procedures Procedure NamePriorityDate/TimeAssociated DiagnosisCommentsLAMOTRIGINERoutine 06/25/2025 11:10 AM ESTLIPID CCHEFRjkpmlm09/25/2025 1:43 PM EST Well adult health check from Last 3 Months or Most Recently Relevant to Health Maintenance Results * Lamotrigine (06/25/2025 11:10 AM EST)Specimen (Source)Anatomical Location / LateralityCollection Method / VolumeCollection TimeReceived TimeBloodVenous blood specimen / Unknown Narrative Authorizing ProviderResult TypeResult StatusHistorical Provider CARROL BLOOD ORDERABLESFinal Result * Lipid Panel (09/12/2024 1:43 PM EST)ComponentValueRef RangeTest MethodAnalysis TimePerformed AtPathologist SignatureCHOLESTEROL, HPXBL780<200 mg/dLQuest [facility] Specialty Hospital - McKeesportHDL IZMGPOTZJFY56> OR = 50 mg/dLQuest [facility] Specialty Hospital - McKeesportTRIGLYCERIDES103<150 mg/dLQuest [facility] Hospital - McKeesportCimvlpstsikc-IjtgiojildPVM-QWEDPCTMRJS65lb/dL (calc)[facility] ClinicComment: Reference range: <100 Desirable range <100 mg/dL for primary prevention; <70 mg/dL for patients with CHD or diabetic patients with > or = 2 CHD risk factors. LDL-C is now calculated using the Dean calculation, which is a validated novel method providing better accuracy than the Friedewald equation in the estimation of LDL-C. Tres RODRIGEZ et al. STEPHANIE. 2013;310(19): 0396-4814 (http://education.OPHTHONIX/faq/NWU700) CHOL/HDLC RATIO3.2<5.0 (calc)[facility] ClinicNON HDL HOXKMJXVDXS374<130 mg/dL (calc)[facility] Comment: For patients with diabetes plus 1 major ASCVD risk factor, treating to a non-HDL-C goal of <100 mg/dL (LDL-C of <70 mg/dL) is considered a therapeutic option. Specimen (Source)Anatomical Location / LateralityCollection Method / Volume Collection TimeReceived TimeBloodVenous blood specimen / Xojrhgl4709/12/2024 1:43 PM EST09/12/2024 1:[address] [facility] - 09/13/2024 6:42 AM EST FASTING:YES FASTING: YES Authorizing ProviderResult TypeResult StatusMonminesh BRANHAM BLOOD ORDERABLESFinal ResultPerforming OrganizationAddressCity/State/ZIP CodePhone Number [facility] [address] [facility], [address] [place] [phone] from Last 3 Months or Most Recently Relevant to Health Maintenance Insurance MemberSubscriberPlan / Payer (Effective 2025-Present)Name:Kavya Guerrero Relation to Subscriber:SelfName:Kavya Guerrero Payer ID:[id number] (NAIC) Type:Not on file Address: [address] Care Teams Team MemberRelationshipSpecialtyStart [place] [address] [address] [place] [address] PCP - General08/14/20
--- OUTSIDE RECORDS SUMMARY | 2025-07-07 10:56 | XMS_ITS | Encounter Summary ---
Author Organization [facility] Address [address] [place] [address] Phone Care Team Providers Care Medical Scientific Officer Name Role Phone Suzanne Uriarte MD Primary Care Provider + Encounter Details DateTypeDepartmentCare Team (Latest Contact Info)Uxoxsrqpdkj99/10/2025Orders Only [facility] Building [address] [place] [address] Dr Chiu 2 [place] [phone] Nedra Deleon MD [address] [place] [address] Dr Chiu 2, [place] [address] Seizure (Multi) (Primary Dx) Social History Tobacco UseTypesPacks/DayYears UsedDateSmoking Tobacco: NeverPassive Smoke Exposure: NeverSmokeless Tobacco: CurrentAlcohol UseStandard Drinks/WeekComments Not Currently0 (1 standard drink = 0.6 oz pure alcohol)SociallyPHQ-2AnswerDate RecordedPatient Health Questionnaire-2 Exhrn38508/21/2024UDIT-CAnswerDate RecordedQ1: How often do you have a [...] Plan of Treatment DateTypeDepartmentCare Team (Latest Contact Info)Cmsojbuftnb72/18/2026 2:00 PM EDTOffice Visit [address] Chiu [address] [facility] [address] [place] [address] Laila Jin, VETERINARIAN POULTRY-SOCIAL WORK PROGRAM COORDINATOR [address] [place] [address] documented as of this encounter Visit Diagnoses Diagnosis Seizure (Multi)- Primary Other convulsions documented in this encounter Additional Health Concerns AssessmentNoted TimeA fall risk assessment has been completed for the patient 06/20/2025 2:54 PM ESTdocumented as of this encounter Care Teams Team MemberRelationshipSpecialtyStart [place] [address] [address] PCP - General08/14/20documented as of this encounter
--- OUTSIDE RECORDS SUMMARY | 2025-07-07 10:56 | XMS_ITS | Encounter Summary ---
Author Organization [facility] Address [address] [place] [address] Care Team Providers Care Hand Driller Name Role Phone Suzanne Uriarte MD Primary Care Provider +1- [phone] Encounter Details DateTypeDepartmentCare Team (Latest Contact Info)Jtwzhitwwez30/10/2025Telephone [facility] [address] [place] [address] [place] [address] LPN Social History Tobacco UseTypesPacks/DayYears UsedDateSmoking Tobacco: Never Assessed Estimated Date of SmsamzpdHlbfdpzgDqm22/02/2026Based on last menstrual period of 11/13/2024Sex and Gender InformationValueDate RecordedSex Assigned at BirthFemale 12/21/2022 8:22 PM EDTLegal AivEhluab87/15/2023 11:40 PM EDTGender Identity Pkylnl3712/21/2022 8:22 PM EDTSexual LfazvzhmsamVquzowjo80/05/2023 8:22 PM EDT documented as of this encounter Miscellaneous Notes * Telephone Encounter - Vee St LPN - 06/27/2025 3:39 PM EST Called patients insurance to discuss srqb-bd-ffwz @ case# [id number] spoke with Kaydenand gave him updated info in regard to Ferritin and Transferrin levels and that patient has been onOral medications for the past month. Will await call back or response in the next 48 hours.--ss 4:17pm Received call from Latonia Wmxx-jp-Xnif Reviewer and was informed that PA is now APPROVED. Ref#[id number]. 4:18pm Called Mihaela at [facility] Scheduling and notified her that Venofer was now APPROVED. 4:23pm Called patient and informed her that Venofer was Approved and to expect a call from [facility] to setup infusions. PVU--Vee Rai LPN documented in this encounter Plan of Treatment DateTypeDepartmentCare Team (Latest Contact Info)Atrdsbbzftc64/22/2025 4:00 PM ESTRoutine [facility] [address] [facility] [phone] Roula Grullon PA [address] [facility] [address] [place], [facility]11 07/23/2025 3:00 PM ESTAncillary Procedure [facility] [address] [facility] [place] [address] documented as of this encounter Goals GoalPatient Goal TypeAssociated ProblemsRecent ProgressPatient-Stated?Author Reminders Care PlanOB RemindersNoOpen Scheduling, Backgrounddocumented as of this encounter Visit Diagnoses Not on filedocumented in this encounter Additional Health Concerns Active ProblemsNoted DateDiagnosed DateOB Azxpzjiew78/29/2023 documented as of this encounter Care Teams Team MemberRelationshipSpecialtyStart [place] [address] [place] [address] PCP - GeneralFamily Medicine01/14/23documented as of this encounter
--- OUTSIDE RECORDS SUMMARY | 2025-07-07 10:56 | XMS_ITS | Encounter Summary ---
Author Organization [facility] Address [address] [facility] [place] [address] Care Team Providers Care Head Bellhop Captain Name Role Phone Suzanne Uriarte MD Primary Care Provider +1- [phone] Encounter Details DateTypeDepartmentCare Team (Latest Contact Info)Zxsenlpfkfg28/10/2025amboo flowsheet [facility] [address] [facility] [place] [address] Willis Chen DO [address] [facility] [place] [address] Social History Tobacco UseTypesPacks/DayYears UsedDateSmoking Tobacco: Never Assessed Estimated Date of QtkyomziVhxcnbpmOmx44/02/2026Based on last menstrual period of 11/13/2024Sex and Gender InformationValueDate RecordedSex Assigned at BirthFemale 12/21/2022 8:22 PM EDTLegal MkeRcjbcf78/15/2023 11:40 PM EDTGender Identity Bqcgdz4012/21/2022 8:22 PM EDTSexual LquchmovndvClmgqhar25/05/2023 8:22 PM EDT documented as of this encounter Plan of Treatment DateTypeDepartmentCare Team (Latest Contact Info)Ezjbkjkisib39/22/2025 4:00 PM ESTRoutine [facility] [address] [facility] [place] [address] Roula Grullon PA [address] [facility] [place] [address] 07/23/2025 3:00 PM ESTAncillary Procedure [facility] WOODGYDelvin [address] [place] [address] [place] [address] documented as of this encounter Goals GoalPatient Goal TypeAssociated ProblemsRecent ProgressPatient-Stated?Author Reminders Care PlanOB RemindersNoOpen Scheduling, Backgrounddocumented as of this encounter Visit Diagnoses Not on filedocumented in this encounter Additional Health Concerns Active ProblemsNoted DateDiagnosed DateOB Cwnjljvnf76/29/2023 documented as of this encounter Care Teams Team MemberRelationshipSpecialtyStart [place] [address] [place] [address] PCP - GeneralFamily Medicine01/14/23documented as of this encounter
--- OUTSIDE RECORDS SUMMARY | 2025-07-07 10:56 | XMS_ITS | Encounter Summary ---
Author Organization [facility] Address [address] [place] [address] Phone Care Team Providers Care Nylon Machine Operator Name Role Phone Suzanne Uriarte MD Primary Care Provider + Encounter Details DateTypeDepartmentCare Team (Latest Contact Info)Yrzszwxvikq86/08/2025Orders Only [facility] Building [address] [place] [address] Dr Chiu [address] [address] Nedra Deleon MD [address] [place] [address] Dr Chiu 2, [place] [address] Unspecified convulsions (Multi) Social History Tobacco UseTypesPacks/DayYears UsedDateSmoking Tobacco: NeverPassive Smoke Exposure: NeverSmokeless Tobacco: CurrentAlcohol UseStandard Drinks/WeekComments Not Currently0 (1 standard drink = 0.6 oz pure alcohol)SociallyPHQ-2AnswerDate RecordedPatient Health Questionnaire-2 Pxcow22408/21/2024UDIT-CAnswerDate RecordedQ1: How often do you have a [...] Plan of Treatment DateTypeDepartmentCare Team (Latest Contact Info)Lekgufztygm65/18/2026 2:00 PM EDTOffice Visit [address] Chiu [address] [address] Laila Jin, POOL CLEANER-SKIVER MACHINE [address] [place] [address] NameTypePriorityAssociated DiagnosesOrder ScheduleLamotrigine levelLabRoutine Unspecified convulsions (Multi) Expected: 06/25/2025 (Approximate), Expires: 06/25/2026documented as of this encounter Visit Diagnoses Diagnosis Unspecified convulsions (Multi) documented in this encounter Additional Health Concerns AssessmentNoted TimeA fall risk assessment has been completed for the patient 06/20/2025 2:54 PM ESTdocumented as of this encounter Care Teams Team MemberRelationshipSpecialtyStart [place] [address] [place] [address] PCP - General08/14/20documented as of this encounter
--- OUTSIDE RECORDS SUMMARY | 2025-07-07 10:56 | XMS_ITS | Encounter Summary ---
Author Organization [facility] Address [address] [facility] [place] [address] Care Team Providers Care Furnace Maintenance Name Role Phone Suzanne Uriarte MD Primary Care Provider +1- [phone] Encounter Details DateTypeDepartmentCare Team (Latest Contact Info)Evkiniymgrn73/08/2025bstract [facility] [address] [facility] [place] [address] Willis hCen DO [address] [facility] [address] [place], [facility]11 Social History Tobacco UseTypesPacks/DayYears UsedDateSmoking Tobacco: Never Assessed Estimated Date of LyfrszrzEwcsnvcnHbt42/02/2026ased on last menstrual period of 11/13/2024Sex and Gender InformationValueDate RecordedSex Assigned at BirthFemale 12/21/2022 8:22 PM EDTLegal XxzTubnrg61/15/2023 11:40 PM EDTGender Identity Tmjrik6312/21/2022 8:22 PM EDTSexual BtkcefqxchbYvytazrx54/05/2023 8:22 PM EDT documented as of this encounter Plan of Treatment DateTypeDepartmentCare Team (Latest Contact Info)Jvjtruqphrt03/22/2025 4:00 PM ESTRoutine [facility] [address] [facility] [place] [address] Roula Grullon PA [address] [facility] [place] [address] 07/23/2025 3:00 PM ESTAncillary Procedure [facility] [address] [place] [address] [place] [address] documented as of this encounter Goals GoalPatient Goal TypeAssociated ProblemsRecent ProgressPatient-Stated?Author Reminders Care PlanOB RemindersNoOpen Scheduling, Backgrounddocumented as of this encounter Visit Diagnoses Not on filedocumented in this encounter Additional Health Concerns Active ProblemsNoted DateDiagnosed DateOB Iuvtvzoma55/29/2023 documented as of this encounter Care Teams Team MemberRelationshipSpecialtyStart [place] [address] [place] [address] PCP - GeneralFamily Medicine01/14/23documented as of this encounter
--- OUTSIDE RECORDS SUMMARY | 2025-07-07 10:56 | XMS_ITS | Encounter Summary ---
Author Organization [facility] Address [address] [facility] [place] [address] Care Team Providers Care Global Mobility Specialist Name Role Phone Suzanne Uriarte MD Primary Care Provider +1- [phone] Encounter Details DateTypeDepartmentCare Team (Latest Contact Info)Xaxqywcqoke03/15/2025Travel Social History Tobacco UseTypesPacks/DayYears UsedDateSmoking Tobacco: Never Assessed Estimated Date of HpecizqsLnzksawyPke56/02/2026ased on last menstrual period of 11/13/2024Sex and Gender InformationValueDate RecordedSex Assigned at BirthFemale 12/21/2022 8:22 PM EDTLegal EuaLitxok85/15/2023 11:40 PM EDTGender Identity Olnyfg3312/21/2022 8:22 PM EDTSexual KaxfwxffeddTlikhnug53/05/2023 8:22 PM EDT documented as of this encounter Plan of Treatment DateTypeDepartmentCare Team (Latest Contact Info)Kvusopmewng83/22/2025 4:00 PM ESTRoutine [facility] [address] [facility] [place] [address] Roula Grullon PA [address] [facility] [address] [place], [facility]11 07/23/2025 3:00 PM ESTAncillary Procedure [facility] [address] [facility] [place] [address] documented as of this encounter Goals GoalPatient Goal TypeAssociated ProblemsRecent ProgressPatient-Stated?Author Reminders Care PlanOB RemindersNoOpen Scheduling, Backgrounddocumented as of this encounter Visit Diagnoses Not on filedocumented in this encounter Additional Health Concerns Active ProblemsNoted DateDiagnosed DateOB Jolfjplht43/29/2023 documented as of this encounter Care Teams Team MemberRelationshipSpecialtyStart [place] [address] [place], [place] [phone] PCP - GeneralFamily Medicine01/14/23documented as of this encounter
--- OUTSIDE RECORDS SUMMARY | 2025-07-07 10:56 | XMS_ITS | Encounter Summary ---
Author Organization [facility] Address [address] [facility] [place] [address] Care Team Providers Care Technology Support Analyst Name Role Phone Suzanne Uriarte MD Primary Care Provider [phone]- [phone] Encounter Details DateTypeDepartmentCare Team (Latest Contact Info)Hqcmfnylrau81/18/2025linisync Result Encounter [facility] External Department Unsolicited Lisa Chen DO [address] [facility] [address] Clary Desai, [facility] Social History Tobacco UseTypesPacks/DayYears UsedDateSmoking Tobacco: Never Assessed Estimated Date of MfrwaoebRhwfvincTvn78/02/2026Based on last menstrual period of 11/13/2024Sex and Gender InformationValueDate RecordedSex Assigned at BirthFemale 12/21/2022 8:22 PM EDTLegal WnuUmcgdk49/15/2023 11:40 PM EDTGender Identity Dtkykm9512/21/2022 8:22 PM EDTSexual JacmcoqwklzIvqwlqtv72/05/2023 8:22 PM EDT documented as of this encounter Plan of Treatment DateTypeDepartmentCare Team (Latest Contact Info)Jjtqkpvufnm12/22/2025 4:00 PM ESTRoutine [facility] [place] [facility] [address] [phone] Roula Grullon PA [address] [facility] [address] [place], [place] [id number] 07/23/2025 3:00 PM ESTAncillary Procedure [facility] [place] [facility] [address] [address] documented as of this encounter Goals GoalPatient Goal TypeAssociated ProblemsRecent ProgressPatient-Stated?Author Reminders Care PlanOB RemindersNoOpen Scheduling, Backgrounddocumented as of this encounter Procedures Procedure NamePriorityDate/TimeAssociated DiagnosisCommentsUS OB BPP W NON-JBBFZE6207/05/2025 10:00 AM EST documented in this encounter Results * US OB BPP W NON-STRESS (07/05/2025 10:00 AM EST)Anatomical Region LateralityModalityOtherSpecimen (Source)Anatomical Location / Laterality Collection Method / VolumeCollection TimeReceived Time07/05/2025 10:00 AM EST Narrative 07/05/2025 10:02 AM EST [facility] ?[address] ? [place] [address] ? Ultrasound Report ? Signed ? Patient: KAVYA HUNTER A ?MR#: [id number] ?? : 1995 ?Acct:[id number] ?? Age/Sex: 29 / F ?ADM Date: 07/04/25 ?? Loc: ? Attending Dr: Lisa Chen D.O. ? Ordering Physician: Lisa Chen D.O. ?? Date of Service: 07/04/25 ?? Procedure(s): US OB BPP w non-stress ?? Accession Number(s): [id number] ? cc: Lisa Chen D.O.; SUZANNE URIARTE M.D. ? [facility] ? [address] ? [place] [address] ? Patient Name: ?? KAVYA HUNTER ? MRN: [id number] ? date: 1995 ?Sex: F ?? Assigned Patient Location: [facility] ?? Current Patient Location: ?? Accession/Order Number: [id number] ?? Exam Date: 07/04/2025 ??18:49 ?Report Date: 07/05/2025 ??10:00 ? At the request of: ?? LISA ??ELSIE ??DO ? Procedure: ??US OB BPP w non-stress ? BIOPHYSICAL PROFILE: ? CLINICAL INFORMATION: HYPERTENSION, UNSPECIFIED TYPE I10 ? COMPARISON: None ? There is a single live intrauterine gestation in cephalic presentation. ??The ?? reported gestational age is 33 weeks 2 days. ??The heart rate measures ?? 144 beats per minute. ? FINDINGS: ? TONE: 1 or more episodes of activity extension and flexion of ?? extremity or opening and closing of the hand ?[Y] ? 2/2 ?? GROSS BODY MOVEMENTS: 3 or more discrete body or limb movements ?[Y] ? 2/2 ?? BREATHING MOVEMENTS: 1 or more episodes of breathing lasting at ?? least 30 seconds ? [Y] ? 2/2 ?? LAURA: A single deepest vertical pocket of amniotic fluid greater than 2 cm ? [Y] ? 2/2 ?LAURA: 16.3 cm ? Total score: ? 8/8 ? US/US OB BPP w non-stress ?? IMPRESSION: ? NORMAL BIOPHYSICAL PROFILE ? Impression dictated by: Cyndi Pisano M.D. ??07/05/2025 10:00 AM ? Dictation Location: RADIO-PC-30 ? Electronically authenticated by: [id number] ??Y ?? Date: 07/05/2025 ??10:00 ? Dictated By: ?Cyndi Pisano M.D. ? Signed By: ?12/18/25 1002 ? DD/ 1000 ? TD/TT: ? Varnish Finisher: Procedure Note Radiology, Radiologist, - 07/05/2025 [place] [address] Ultrasound Report Signed Patient: KAVYA HUNTER [facility]#: [id number] : 1995Acct:[id number] Age/Sex: 29 / FADM Date: 07/04/25 Loc: US Attending Dr: Lisa Chen D.O. Ordering Physician: Lisa Chen D.O. Date of Service: 07/04/25 Procedure(s): US OB BPP w non-stress Accession Number(s): [id number] cc: Lisa Chen D.O.; SUZANNE URIARTE M.D. The [address] [address] Patient Name: KAVYA HUNTER MRN: [id number] date: 1995 Sex: F Assigned Patient Location: [facility] Current Patient Location: [place] Accession/Order Number: [id number] Exam Date: 07/04/2025 18:49 Report Date: 07/05/2025 10:00 At the request of: LISA CHEN DO Procedure: US OB BPP w non-stress BIOPHYSICAL PROFILE: CLINICAL INFORMATION: HYPERTENSION, UNSPECIFIED TYPE I10 COMPARISON: None There is a single live intrauterine gestation in cephalic presentation.The reported gestational age is 33 weeks 2 days. The heart ratemeasures 144 beats per minute. FINDINGS: TONE: 1 or more episodes of activity extension and flexion of extremity or opening and closing of the hand [Y] 2/2 GROSS BODY MOVEMENTS: 3 or more discrete body or limb movements [Y] 2/2 BREATHING MOVEMENTS: 1 or more episodes of breathing lastingat least 30 seconds [Y] 2/2 LAURA: A single deepest vertical pocket of amniotic fluid greater than 2 cm [Y] 2/2 LAURA: 16.3 cm Total score: 8/8 US/ OB BPP w non-stress IMPRESSION: NORMAL BIOPHYSICAL PROFILE Impression dictated by: Cyndi Pisano M.D. 07/05/2025 10:00 AM Dictation Location: [place] [address] Electronically authenticated by: [id number] Y Date: 0:00 Dictated By: Cyndi Pisano M.D. Signed By:07/05/25 1002 DD/ 1000 TD/TT: Varnish Finisher: Authorizing ProviderResult TypeResult StatusCorechristina Chen DOCLINISYNC IMAGINGFinal Result documented in this encounter Visit Diagnoses Not on filedocumented in this encounter Additional Health Concerns Active ProblemsNoted DateDiagnosed DateOB Licpakoyz61/29/2023 documented as of this encounter Care Teams Team MemberRelationshipSpecialtyStart [place] [address] [place] [address] PCP - GeneralFamily Medicine01/14/23documented as of this encounter
--- OUTSIDE RECORDS SUMMARY | 2025-07-07 10:56 | XMS_ITS | Encounter Summary ---
Author Organization [facility] Address [address] [facility] [place] [address] Care Team Providers Care Reduction Furnace Operator Helper Name Role Phone Suzanne Uriarte MD Primary Care Provider +1- [phone] Encounter Details DateTypeDepartmentCare Team (Latest Contact Info)Dhjnaazzebw58/08/2025bstract [facility] [place] [facility] [address] [place] [address] Willis Chen DO [address] [facility] [address] Clary Desai, [facility]11 Social History Tobacco UseTypesPacks/DayYears UsedDateSmoking Tobacco: Never Assessed Estimated Date of HhjtkscmSbnipzorYyx92/02/2026ased on last menstrual period of 11/13/2024Sex and Gender InformationValueDate RecordedSex Assigned at BirthFemale 12/21/2022 8:22 PM EDTLegal KjpBssozy59/15/2023 11:40 PM EDTGender Identity Ujwdki0212/21/2022 8:22 PM EDTSexual ZtrlkhczowqQzoxkezi31/05/2023 8:22 PM EDT documented as of this encounter Plan of Treatment DateTypeDepartmentCare Team (Latest Contact Info)Qdwpvmddfyk30/22/2025 4:00 PM ESTRoutine [facility] [place] [facility] [address] [place] [address] Roula Grullon PA [address] [facility] [place] [address] 07/23/2025 3:00 PM ESTAncillary Procedure [facility] [place] [facility] [address] [place] [address] [place] [address] documented as of this encounter Goals GoalPatient Goal TypeAssociated ProblemsRecent ProgressPatient-Stated?Author Reminders Care PlanOB RemindersNoOpen Scheduling, Backgrounddocumented as of this encounter Visit Diagnoses Not on filedocumented in this encounter Additional Health Concerns Active ProblemsNoted DateDiagnosed DateOB Smmnphdxp25/29/2023 documented as of this encounter Care Teams Team MemberRelationshipSpecialtyStart [place] [address] [place] [address] PCP - GeneralFamily Medicine01/14/23documented as of this encounter
--- OUTSIDE RECORDS SUMMARY | 2025-07-07 10:56 | XMS_ITS | Encounter Summary ---
Author Organization [facility] Address [address] [place] [address] Phone Care Team Providers Care Bucket Wash Operator Name Role Phone Suzanne Uriarte MD Primary Care Provider + Encounter Details DateTypeDepartmentCare Team (Latest Contact Info)Fxhrdyxewgp14/12/2025Scanned Document [facility] [address] [place] [phone] [place] [address] [place] [address] Social History Tobacco UseTypesPacks/DayYears UsedDateSmoking Tobacco: NeverPassive Smoke Exposure: NeverSmokeless Tobacco: CurrentAlcohol UseStandard Drinks/WeekComments Not Currently0 (1 standard drink = 0.6 oz pure alcohol)SociallyPHQ-2AnswerDate RecordedPatient Health Questionnaire-2 Wfwhf76308/21/2024UDIT-CAnswerDate RecordedQ1: How often do you have a [...] Plan of Treatment DateTypeDepartmentCare Team (Latest Contact Info)Nwggpfumday26/18/2026 2:00 PM EDTOffice Visit [address] [place] [address] Laila Jin, PATIENT CARRIER-ACCOUNTING MANAGER ASSISTANT CONTROLLER [address] [place] [address] documented as of this encounter Visit Diagnoses Not on filedocumented in this encounter Additional Health Concerns AssessmentNoted TimeA fall risk assessment has been completed for the patient 06/20/2025 2:54 PM ESTdocumented as of this encounter Care Teams Team MemberRelationshipSpecialtyStart [place] [address] [place] [address] PCP - General08/14/20documented as of this encounter
--- OUTSIDE RECORDS SUMMARY | 2025-07-07 10:56 | XMS_ITS | Encounter Summary ---
Author Organization [facility] Address [address] [place] [address] Phone Care Team Providers Care Gas Appliance Mechanic Name Role Phone Suzanne Uriarte MD Primary Care Provider + Encounter Details DateTypeDepartmentCare Team (Latest Contact Info)Nthfugbmqpk69/10/2025Scanned Document [facility] Building [address] [place] [address] [address] [address] Nedra Deleon MD [address] [place] [address] [address], [place] [address] Social History Tobacco UseTypesPacks/DayYears UsedDateSmoking Tobacco: NeverPassive Smoke Exposure: NeverSmokeless Tobacco: CurrentAlcohol UseStandard Drinks/WeekComments Not Currently0 (1 standard drink = 0.6 oz pure alcohol)SociallyPHQ-2AnswerDate RecordedPatient Health Questionnaire-2 Pziqr88008/21/2024UDIT-CAnswerDate RecordedQ1: How often do you have a [...] Plan of Treatment DateTypeDepartmentCare Team (Latest Contact Info)Djhhejovxrp36/18/2026 2:00 PM EDTOffice Visit [address] [place] [address] Laila Jin, MANUFACTURED BUILDINGS REPAIRER-MEN'S DESIGNER [address] [place] [address] documented as of this encounter Visit Diagnoses Not on filedocumented in this encounter Additional Health Concerns AssessmentNoted TimeA fall risk assessment has been completed for the patient 06/20/2025 2:54 PM ESTdocumented as of this encounter Care Teams Team MemberRelationshipSpecialtyStart [place] [address] [place] [address] PCP - General08/14/20documented as of this encounter
--- OUTSIDE RECORDS SUMMARY | 2025-07-07 10:56 | XMS_ITS | Clinical Summary ---
Author Organization [facility] Healthcare Address [address] [place] [address] Care Team Providers Care Jet Ski Mechanic Name Role Phone Koffi Winters MD Primary Care Provider +1- [phone] Allergies No known active allergies Medications MedicationSigDispense [...] Problems ProblemNoted DateDiagnosed DateBreech presentation, no version ([facility]) 07/29/20234619Gfcuyqjxzajy28/29/2602Bcjzpsy62/22/2021Estimated Date of YshzvvkbRbhpzajaQoh79/02/2026ased on last menstrual period of 11/13/2024 Encounters DateTypeDepartmentCare IzrbVxdazhwirdj26/18/2025linisync Result Encounter [facility] External Department Unsolicited Lisa Chen, DO 07/02/20256551Slxtrj62/10/2025 3:00 PM ESTRoutine [facility] [place] [facility] [address] [address] Lisa Chen, DO Third trimester ([facility]); 32 weeks gestation of ([facility]); Seizure ([facility]); Hypertension, unspecified type; Antepartum anemia ([facility]); SGA (small for gestational age) ([facility])06/27/2025Telephone [facility] [address] [address] LPN 06/27/2025amboo flowsheet [facility] [address] [place] [address] Lisa Chen, DO 06/25/2025bstract [facility] [address] [place] [address] Lisa Chen, DO 06/25/2025bstract [facility] [address] [place] [address] Lisa Chen, DO 06/25/2025Telephone [facility] [place] [facility] [address] [place] [address] Lisa Chen, DO 06/21/2025bstract [facility] [place] [facility] [address] [place] [address] Lisa Chen, DO 06/20/20252388Idjviy61/01/2025bstract [facility] [place] [facility] [address] [place] [address] Lisa Chen, DO 5Clinisync Result Encounter NOMS External Department Unsolicited Roula Grullon PA 06/13/2025 3:00 PM ESTRoutine [facility] [address] [place] [address] Roula Grullon PA Third trimester ([facility]); 30 weeks gestation of ([facility]); Antepartum anemia ([facility])06/13/2025 2:30 PM ESTAncillary Procedure [facility] [address] [place] [address] Hypertension, unspecified type; Seizure ([facility])06/13/2025bstract [facility] [place] [facility] [address] [place] [address] Lisa Chen, DO 06/13/2025bstract [facility] [address] [place] [address] Lisa Chen, DO 06/13/2025bstract [facility] [address] [place] [address] Lisa Chen, DO 5Clinisync Result Encounter NOMS External Department Unsolicited Lisa Chen, DO 06/12/20255571Nkqhtu64/25/2025Telephone [facility] [address] [place] [address] Lisa Chen, DO 05/29/2025 11:40 AM ESTRoutine [facility] [place] [facility] [address] [place] [address] Lisa Chen, 28 weeks gestation of ([facility]); Third trimester ([facility]); Hypertension, unspecified type; Seizure ([facility]); Hemoglobin low05/29/2025amboo flowsheet [facility] [address] [place] [address] Lisa Chen, 05/22/20257595Ndkucf55/01/2025Clinisync Result Encounter NOMS External Department Unsolicited Roula Grullon PA 04/30/2025 9:50 AM EDTRoutine [facility] [address] [place] [address] Roula Grullon PA Second trimester ([facility]); 24 weeks gestation of ([facility]); Hypertension, unspecified type; Seizure ([facility]); Diabetes mellitus ewlwhjbok08/13/2025amb flowsheet [facility] [address] [place] [address] [place] [address] Roula Grullon PA 04/29/20253934Lcolub31/01/2025Refill [facility] [address] [place] [address] [place] [address] Lisa Chen, DO Secondary isebejdeqhpk82/20/2025Clinisync Result Encounter N[facility]S External Department Unsolicited Roula Grullon PA from Last 3 Months Social History Tobacco UseTypesPacks/DayYears UsedDateSmoking Tobacco: Never Assessed Estimated Date of WmunnpfoUiuzflnjUnt43/02/2026Based on last menstrual period of 11/13/2024Sex and Gender InformationValueDate RecordedSex Assigned at BirthFemale 12/21/2022 8:22 PM EDTLegal NjfPznfaf01/15/2023 11:40 PM EDTGender Identity Nocvdv5212/21/2022 8:22 PM EDTSexual DqnqqafuypcOwmqsalm06/05/2023 8:22 PM EDT Last Filed Vital Signs Vital SignReadingTime TakenCommentsBlood Sghzpypr649/7606/27/2025 3:16 PM EST Pulse--Temperature--Respiratory Rate--Oxygen Saturation--Inhaled Oxygen Concentration--Jkgzjc27.6 kg (197 lb 8 oz)06/27/2025 3:16 PM FIZZeealx663.3 cm (5' 9 )11/16/2022 12:00 PM EDTBody Mass Index29.17011/16/2022 12:00 PM EDT Plan of Treatment DateTypeDepartmentCare Team (Latest Contact Info)Ohvwerqhazs59/22/2025 4:00 PM ESTRoutine [facility] [address] [place] [address] Roula Grullon PA [address] [place], [place] [address] 07/23/2025 3:00 PM ESTAncillary Procedure [facility] [address] [place] [address] Health MaintenanceDue DateLast DoneCommentsHPV/Wbuges12/4COVID-19 Vaccine ( season)511/03/2023, 01/29/2021, 01/08/2021Influenza Vaccine (#1)510/11/2022, 04/21/2022, 04/18/2021, Additional history existsCervical Cancer Bucxflylz20/20/2028Pap Smear, 03/09/2023neumococcal Vaccine: Pediatrics (0 to 5 Years) and At-Risk Patients (6 to 64 Years)Aged OutNo longer eligible based on patient's age to complete this topic Goals GoalPatient Goal TypeAssociated ProblemsRecent ProgressPatient-Stated?Author Reminders Care PlanOB RemindersNoOpen Scheduling, Background Procedures Procedure NamePriorityDate/TimeAssociated DiagnosisCommentsUS OB BPP W NON-BGYMGF8407/05/2025 10:00 AM EST POCT URINALYSIS QMWXKWMONalykwu65/04/2025 3:20 PM EST Third trimester ([facility]) UZLGMMFWZMWHrzohsb47/28/2025 2:57 PM EST C[facility] INHHJKSKMeupyye14/28/2025 2:57 PM EST POCT URINALYSIS NJTDQDCZKekyppe78/26/2025 3:11 PM EST Third trimester ([facility]) US OB FOLLOW UP TRANSABDOMINAL FXXUOUNFPygqpel37/26/2025 3:02 PM EST Hypertension, unspecified type Seizure ([facility]CC) TBH UA (CLEAN/CATCH) TELECOM ANALYST/MICRO IF IND.Ubbdyul7006/12/2025 4:40 PM EST POCT URINALYSIS GUEVCQKYNyosqhf65/11/2025 11:46 AM EST 28 weeks gestation of ([facility]) Third trimester ([facility]) GLUCOSE 1 TJPJMcvbfnv21/01/2025 12:28 PM EDT ALL CBC WITH AUTO VKUKSdfaksm15/01/2025 12:28 PM EDT POCT URINALYSIS MWUAUEVYVzuevxw00/13/2025 10:14 AM EDT Second trimester ([facility]) AFP, SERUM, OPEN SPINA PHXURZAfrkbib07/20/2025 10:31 AM EDT PAP WOQIEFmnblrz52/20/2025 12:00 AM EDTfrom Last 3 Months or Most Recently Relevant to Health Maintenance Results * US OB BPP W NON-STRESS (07/05/2025 10:00 AM EST)Anatomical Region LateralityModalityOtherSpecimen (Source)Anatomical Location / Laterality Collection Method / VolumeCollection TimeReceived Time07/05/2025 10:00 AM EST Narrative 07/05/2025 10:02 AM EST [facility] ?[address] ? [place] [address] ? Ultrasound Report ? Signed ? Patient: HUNTER,PRINCESS A ?MR#: [id number] ?? : 1995 ?Acct:[id number] ?? Age/Sex: 29 / F ?ADM Date: 12/17/25 ?? Loc: US ? Attending Dr: Lisa Chen D.O. ? Ordering Physician: Lisa Chen D.O. ?? Date of Service: 07/04/25 ?? Procedure(s): US OB BPP w non-stress ?? Accession Number(s): [id number] ? cc: Lisa Chen D.O.; KOFFI WINTERS M.D. ? [facility] ? [address] ? [place] [address] ? Patient Name: ?? PRINCESS HUNTER ? MRN: [facility]:[id number] ? date: 1995 ?Sex: F ?? Assigned Patient Location: [facility] ?? Current Patient Location: US ?? Accession/Order Number: [id number] ?? Exam Date: 07/04/2025 ??18:49 ?Report Date: 07/05/2025 ??10:00 ? At the request of: ?? LISA ??APRIL ??DO ? Procedure: ??US OB BPP w [...] Dictation Location: RADIO-PC-30 ? Electronically authenticated by: [id number] ??Y ?? Date: 07/05/2025 ??10:00 ? Dictated By: ?Cyndi Pisano M.D. ? Signed By: ?12/18/25 1002 ? DD/ 1000 ? TD/TT: ? [employer]: Procedure Note Radiology, Radiologist, - 07/05/2025 [place] [address] Ultrasound Report Signed Patient: PRINCESS HUNTER [facility]#: [id number] : 1995Acct:[id number] Age/Sex: 29 / FADM Date: 07/04/25 Loc: US Attending Dr: Lisa Chen D.O. Ordering Physician: Lisa Chen D.O. Date of Service: 07/04/25 Procedure(s): US OB BPP w non-stress Accession Number(s): [id number] cc: Lisa Chen D.O.; KOFFI WINTERS M.D. The [place] [address] Patient Name: PRINCESS HUNTER MRN: [facility]:[id number] date: 1995 Sex: F Assigned Patient Location: [facility] Current Patient Location: [place] Accession/Order Number: [id number] Exam Date: 07/04/2025 18:49 Report Date: 07/05/2025 [...] 2/2 LAURA: 16.3 cm Total score: 8/8 US/US OB BPP w non-stress IMPRESSION: NORMAL BIOPHYSICAL PROFILE Impression dictated by: Cyndi Pisano M.D. 07/05/2025 10:00 AM Dictation Location: [place] [address] Electronically authenticated by: [id number] Y Date: 0:00 Dictated By: Cyndi Pisano M.D. Signed By:07/05/25 1002 DD/ 1000 TD/TT: [employer]: Authorizing ProviderResult TypeResult StatusCorey April DOCLINISYNC IMAGINGFinal Result * (ABNORMAL) POCT urinalysis dipstick manually resulted (06/27/2025 3:20 PM EST) Only the most recent of4 [...] / LateralityCollection Method / VolumeCollection TimeReceived Time Urine06/27/2025 3:20 PM EST Narrative Authorizing ProviderResult TypeResult StatusCorey April DOPOINT OF CARE TEST ENTER/EDIT ORDERABLESFinal Result * (ABNORMAL) TRANSFERRIN (06/15/2025 2:57 PM EST)ComponentValueRef RangeTest MethodAnalysis TimePerformed AtPathologist HjdfmqmkpTCYPCLJAWJF254(A)192 - 364 mg/dLTBHComment: Performed at: ??CB - [facility] [address] ??[id number] Employment Specialist/Program Manager: Jose Fallon PhD, Phone: ??[phone] Specimen (Source)Anatomical Location / LateralityCollection Method / Volume Collection TimeReceived Time06/15/2025 2:57 PM EST06/15/2025 2:59 PM EST Narrative DRAGANISYKETAN - 06/16/2025 7:07 AM EST Authorizing ProviderResult TypeResult StatusAmy Mitchel PALAB BLOOD ORDERABLES Final ResultPerforming OrganizationAddressCity/State/ZIP CodePhone Number [facility] * (ABNORMAL) [facility] FERRITIN (06/15/2025 2:57 PM EST)ComponentValueRef RangeTest MethodAnalysis TimePerformed AtPathologist SignatureFERRITIN6.0(L)8.0 - 252.0 ng/mLTBHSpecimen (Source)Anatomical Location / LateralityCollection Method / VolumeCollection TimeReceived Time06/15/2025 2:57 PM EST06/15/2025 2:59 PM EST Narrative QUITA - 06/15/2025 3:40 PM EST Authorizing ProviderResult TypeResult StatusAmy Mitchel PACLINISYNCFinal Result Performing OrganizationAddressCity/State/ZIP CodePhone Number [facility] TB * US OB follow up transabdominal approach [...] Final Result * (ABNORMAL) TBH UA (CLEAN/CATCH) TELECOM ANALYST/MICRO IF IND. (06/12/2025 4:40 PM EST) ComponentValueRef [...] RangeTest Method Analysis TimePerformed AtPathologist SignatureGLUCOSE 1 ZKJQ302<130 mg/dLTBH Specimen (Source)Anatomical Location / LateralityCollection Method / Volume Collection TimeReceived Time05/19/2025 12:28 PM EDT107/19/2024 12:29 PM EDT Narrative CLINISYNC - 05/19/2025 1:15 PM EDT Authorizing ProviderResult TypeResult StatusAmy Mitchel BOATENG BLOOD ORDERABLES Final ResultPerforming OrganizationAddressCity/State/ZIP CodePhone Number [facility]IN[facility]NC TB * (ABNORMAL) ALL CBC WITH AUTO DIFF (05/19/2025 12:28 PM EDT)ComponentValueRef RangeTest MethodAnalysis TimePerformed AtPathologist SignatureTBH WBC9.84.0 - 11.0 10 3/uLTBHTBH RBC3.21(L)4.20 - 5.40 10 6/uLTBHTBH HGB10.2(L)12.0 - 16.0 g/dLTBHTBH HCT30.2(L)36.0 - 48.0 %TBHTBH MCV94.181.0 - 99.0 fLTBHTBH MCH31.8 26.7 - 34.0 pgTBHTBH MCHC33.829.9 - 35.2 g/dLTBHTBH RDW12.311.0 - 15.0 %TBHTBH WBM041412 - 450 10 3/uLTBHTBH MPV8.9(L)9.5 - 13.5 [...] SignatureRESULTSReport.TBHTEST RESULTS:*Screen Negative*.TBHGEST. AGE ON COLLECTION DATE20.7. weeksTBH GESTAT. AGE BASED ONLMP.TBHComment: Recalculations are not recommended when gestational dating by LMP and ultrasound are within 10 days. MATERNAL AGE AT EDD31.8. yrTBHRACECaucasian.FBOJSTNRW500. lbsTBHINSULIN DEP DIABETESNo.TBHMULTIPLE GESTATIONNo.TBHAFP VALUE45.0. ng/mLTBHAFP MOM0.82.TBHOSBR RISK 1 OQ38439.TBHINTERPRETATIONComment.TBHComment: Interpretation: Screen Negative This result is screen [...] Customer Services to discuss available options. ??The [employer] recommends amniocentesis be offered to women age 35 and older. COMMENT:Comment.TBHComment: Jeny Avila, Ph.D., [facility] Director References: Available Upon Request. Multiples Of Median Cutoffs ?For AFP Elevations Becerra ?? 2.5 ? Black ?2.8 IDD ? 2.0 ? Twins ?4.5 ?Abbreviation Definitions IDD - Insulin Dep Diabetes OSBR - Open Spina Bifida Risk For further inquiries contact [facility] at [phone]. This test was developed and its performance characteristics determined by [employer]. It has not been cleared or approved by the Food and Drug Administration. Performed at: ??[facility] [address] [place], [place] ??[id number] Employment Specialist/Program Manager: Abdulaziz Aquino [facility], Phone: ??[phone] Specimen (Source)Anatomical Location / LateralityCollection Method / Volume Collection TimeReceived Time04/07/2025 10:31 AM EDT04/07/2025 10:35 AM EDT Narrative CLINISYNC - 04/09/2025 6:08 PM EDT N N LMP [id number] 2 16 N 1 Y 183 N N N N N White/ Authorizing ProviderResult TypeResult StatusAmy Mitchel PALAB BLOOD ORDERABLES Final ResultPerforming OrganizationAddressCity/State/ZIP CodePhone Number [facility] TBH * Pap Smear (03/07/2025 12:00 AM EDT)Specimen (Source)Anatomical Location / LateralityCollection Method / VolumeCollection TimeReceived TimeSwabCervical swab / Unknown Narrative Authorizing ProviderResult TypeResult StatusAmy [place] PALAB CYTOLOGY ORDERABLES Final ResultPerforming OrganizationAddressCity/State/ZIP CodePhone Number EXTERNAL LAB from Last 3 Months or Most Recently Relevant to Health Maintenance Additional Health Concerns Active ProblemsNoted DateDiagnosed DateOB Qplqxkwlt38/29/2023 Insurance Care Teams Team MemberRelationshipSpecialtyStart [place] [address] [place], [place] [id number] [facility]
--- OUTSIDE RECORDS SUMMARY | 2025-07-07 10:56 | XMS_ITS | Encounter Summary ---
Author Organization [facility] Address [address] [facility] [place] [address] Care Team Providers Care Food Management Aide Name Role Phone Suzanne Uriarte MD Primary Care Provider +1- [phone] Encounter Details DateTypeDepartmentCare Team (Latest Contact Info)Wpdynosdgzz45/08/2025Telephone [facility] [place] [facility] [address] [place] [address] Willis Chen, [address] [place] [address] Social History Tobacco UseTypesPacks/DayYears UsedDateSmoking Tobacco: Never Assessed Estimated Date of CuuakpwrIsnbvrmyKjq45/02/2026ased on last menstrual period of 11/13/2024Sex and Gender InformationValueDate RecordedSex Assigned at BirthFemale 12/21/2022 8:22 PM EDTLegal HxhWnxmmj75/15/2023 11:40 PM EDTGender Identity Vvrctw9712/21/2022 8:22 PM EDTSexual MbgpzkkgzadFpcpupvd12/05/2023 8:22 PM EDT documented as of this encounter Miscellaneous Notes * Telephone Encounter - Lynette Engel LPN - 06/25/2025 11:09 AM EST Patient returned call and she was advised of results and that we will do a growth again and that with her labs we will submit for infusions. Patient transferred to clerical to schedule ultrasound butmade aware order sent to [facility] if she needs to have that completed there. PVU. * Telephone Encounter - Lynette Engel LPN - 06/25/2025 10:35 AM EST Patient was called and a detailed message was left to return call to the office to be made aware oforders for repeat growth in 4 weeks. documented in this encounter Plan of Treatment DateTypeDepartmentCare Team (Latest Contact Info)Vivrqanreze29/22/2025 4:00 PM ESTRoutine [facility] [address] [place] [address] Roula Grullon PA [address] [place], [place] [address] 07/23/2025 3:00 PM ESTAncillary Procedure [facility] [address] [place] [address] NameTypePriorityAssociated DiagnosesOrder ScheduleUS OB follow up transabdominal [...] type SGA (small for gestational age) ([facility]) Fpdbq-sii-uellh without mention of malnutrition, unspecified (weight) documented in this encounter Additional Health Concerns Active ProblemsNoted DateDiagnosed DateOB Stakoeneu87/29/2023 documented as of this encounter Care Teams Team MemberRelationshipSpecialtyStart [place] [address] [address] PCP - GeneralFamily Medicine01/14/23documented as of this encounter
--- OUTSIDE RECORDS SUMMARY | 2025-07-07 10:56 | XMS_ITS | Encounter Summary ---
Author Organization [facility] Address [address] [place] [address] Phone Care Team Providers Care Program Development Manager Name Role Phone Suzanne Uriarte MD Primary Care Provider + Encounter Details DateTypeDepartmentCare Team (Latest Contact Info)Pprkvpovrhs48/08/2025Orders Only [facility] [address] [place] [address] Dr Chiu [address] [phone] Provider, [place] [facility] [place] [address] Social History Tobacco UseTypesPacks/DayYears UsedDateSmoking Tobacco: NeverPassive Smoke Exposure: NeverSmokeless Tobacco: CurrentAlcohol UseStandard Drinks/WeekComments Not Currently0 (1 standard drink = 0.6 oz pure alcohol)SociallyPHQ-2AnswerDate RecordedPatient Health Questionnaire-2 Wiwiq05908/21/2024UDIT-CAnswerDate RecordedQ1: How often do you have a [...] Plan of Treatment DateTypeDepartmentCare Team (Latest Contact Info)Sbztyblprck60/18/2026 2:00 PM EDTOffice Visit [address] Chiu [address] [place] [phone] Laila Jin, [employer] OPERATOR-RECEIVING WORKER [address] [place] [address] documented as of this encounter Procedures Procedure [...] Team MemberRelationshipSpecialtyStart [place] [address] [place] [address] PCP - General08/14/20documented as of this encounter
== END 2025-07-07 11:29 | disposition home or self-care (01) ==
LOC: FBCO 10:52 → FBC 10:53
PROVIDERS: PCP Family Medicine; Visit Provider Obstetrics & Gynecology
DX: O16.3 Unspecified maternal hypertension, third trimester (principal)
CPT/HCPCS: 59025

== ENCOUNTER 2025-07-10 15:56 | Outpatient (RCR) | payer BC, SELFPAY ==
[2025-06-29 13:10] VITALS: BP 117/76; PULSE 73; TEMP 36.5; O2SAT 100
[2025-06-29] MEDS: IRON SUCROSE COMPLEX 100 MG in 0.9 % SODIUM CHLORIDE 100 ML 420 MG IV (13:40)
[2025-07-02] MEDS: IRON SUCROSE COMPLEX 200 MG in 0.9 % SODIUM CHLORIDE 100 ML 220 MG IV (16:06)
[2025-07-02 16:54] VITALS: BP 118/76; PULSE 75; TEMP 36.4; O2SAT 99
[2025-07-04 16:08] VITALS: BP 126/77; PULSE 74; TEMP 36.5; O2SAT 99
[2025-07-04] MEDS: IRON SUCROSE COMPLEX 200 MG in 0.9 % SODIUM CHLORIDE 100 ML 220 MG IV (16:20)
[2025-07-06 15:58] VITALS: BP 134/80; PULSE 78; TEMP 36.6; O2SAT 99
[2025-07-06] MEDS: IRON SUCROSE COMPLEX 100 MG in 0.9 % SODIUM CHLORIDE 100 ML 420 MG IV (16:03)
[2025-07-09 13:50] VITALS: BP 125/84; PULSE 84; TEMP 36.7; O2SAT 98
[2025-07-09] MEDS: IRON SUCROSE COMPLEX 200 MG in 0.9 % SODIUM CHLORIDE 100 ML 220 MG IV (14:01)
[2025-07-10 15:55] VITALS: BP 116/71; PULSE 74; TEMP 36.6; O2SAT 98
[2025-07-10] MEDS: IRON SUCROSE COMPLEX 200 MG in 0.9 % SODIUM CHLORIDE 100 ML 220 MG IV (16:04)
== END 2025-07-18 23:59 | disposition home or self-care (01) ==
LOC: INF 15:56
PROVIDERS: PCP Family Medicine; Visit Provider Obstetrics & Gynecology
DX: O99.013 Anemia complicating pregnancy, third trimester (principal); D64.9 Anemia, unspecified; O16.3 Unspecified maternal hypertension, third trimester; O99.891 Other specified diseases and conditions complicating pregnancy; R56.9 Unspecified convulsions; Z3A.34 34 weeks gestation of pregnancy
CPT/HCPCS: 76818; 96365; 96374; J1756

== ENCOUNTER 2025-07-10 16:41 | Outpatient (OUT) | payer BC, SELFPAY ==
--- OUTSIDE RECORDS SUMMARY | 2025-05-29 11:40 | XMS_ITS | Encounter Summary ---
Author Organization [facility] Address [address] [place] [address] Care Team Providers Care It Consultant Name Role Phone Suzanne Uriarte MD Primary Care Provider +1- [phone] Reason for Visit * ReasonCommentsRoutine Visit Encounter Details DateTypeDepartmentCare Team (Latest Contact Info)Fngrfdzxvzg98/11/2025 11:40 AM ESTRoutine [facility] [address] [place] [phone] Willis Chen DO [address] [place], [place] [id number] 28 weeks gestation of ([facility]); Third trimester ([facility]); Hypertension, unspecified type; Seizure ([facility]); Hemoglobin low Social History Tobacco UseTypesPacks/DayYears UsedDateSmoking Tobacco: Never Assessed Estimated Date of JfeqsvlzCmvljtegRpg72/02/2026ased on last menstrual period of 11/13/2024Sex and Gender InformationValueDate RecordedSex Assigned at BirthFemale 12/21/2022 8:22 PM EDTLegal PfuWokocv71/15/2023 11:40 PM EDTGender Identity Wllamg7412/21/2022 8:22 PM EDTSexual EdqeqntotnqAplbbcoi95/05/2023 8:22 PM EDT documented as of this encounter Last Filed Vital Signs Vital SignReadingTime TakenCommentsBlood Borzljcw943/6005/29/2025 11:37 AM EST Pulse--Temperature--Respiratory Rate--Oxygen Saturation--Inhaled Oxygen Concentration--Seyylx11.8 kg (195 lb 12.8 oz)05/29/2025 11:37 AM ESTHeight--Body Mass Index28.9105 12:00 PM EDTdocumented in this encounter Progress Notes * Cyndi Andrade, SALOON KEEPER - 05/29/2025 11:40 AM EST Reason for Appointment: Patient ID: Kavya Guerrero [...] Problems Diagnosis Date Noted Hypertension 01/14/2023 Seizure ([facility]) 07/09/2021 Breech presentation, no version ([facility]) 07/29/2023 Resolved Ambulatory Problems Diagnosis Date Noted No Resolved Ambulatory Problems No Additional Past Medical History HISTORY PAST MEDICAL HISTORY SOCIAL HISTORY History reviewed. No pertinent past medical history. Social History Tobacco Use Smoking status: Not [...] nursing note reviewed. Exam conducted with a marine radio installer and servicer present. Vitals: Estimated body mass index is 28.91 kg/m?? as calculated from the following: Height as of 11/16/22: 5' 9 . Weight as of this encounter: 195 lb 12.8 oz. BP: 100/60 Patient's last menstrual period was 11/13/2024. Assessment/Plan ICD-10-CM 1. 28 weeks gestation of ([facility]) Z3A.28 POCT urinalysis dipstick manually resulted 2. Third trimester ([facility]) Z34.93 POCT urinalysis dipstick manually resulted 3. Hypertension, unspecified type I10 4. Seizure ([facility]) R56.9 Return OB: Patient presents today for a routine obstetrics appointment. Patient is currently 28w1d . Patient states she is doing well [...] week for routine OB appointment. Documented by Cyndi Andrade LPN on behalf of: Willis Chen DO * Vee St LPN - 05/29/2025 11:40 AM EST 06/26/25 @11:55am Patient has been on Oral ProFe without improvement of anemia after 4 weeks. Nursing will attach recent lab results for Transferrin and Ferritin. Patient will benefit from having IV Iron Infusions with Venofer. If by chance insurance does not feel that OB patient will benefit from Venofer, Injectafer can thenbe ordered. Patient is currently 32 weeks gestation and has already had 1 ER visit due to anemia. Patient would also be expected to have some sort of blood loss at time of delivery and it is beneficial that she has IV Iron infusions prior to delivery. Vee St LPN documented in this encounter Plan of Treatment DateTypeDepartmentCare Team (Latest Contact Info)Mnqjuouejhy89/05/2026 3:00 PM ESTAncillary Procedure [facility] [address] [place] [phone] 07/23/2025 3:30 PM ESTRoutine [facility] [address] [place] [phone] Willis Chen, [address] [place], [place] [phone] NameTypePriorityAssociated DiagnosesOrder ScheduleUS OB follow up transabdominal approachImagingRoutine Hypertension, unspecified type Seizure (HCC) 4 Occurrences starting 05/29/2025 until 09/26/2025, 1 completeddocumented as of this encounter Goals GoalPatient Goal TypeAssociated ProblemsRecent ProgressPatient-Stated?Author Reminders Care PlanOB RemindersNoOpen Scheduling, Backgrounddocumented as of this encounter Procedures Procedure NamePriorityDate/TimeAssociated DiagnosisCommentsPOCT URINALYSIS EKENQUBHBusadtr87/11/2025 11:46 AM EST 28 weeks gestation of ([facility]) Third trimester ([facility]) documented in this encounter Results * OB follow up transabdominal approach (06/13/2025 3:02 PM EST)Anatomical RegionLateralityModalityBodyUltrasoundSpecimen (Source)Anatomical Location / LateralityCollection Method / VolumeCollection TimeReceived Time06/19/2025 10:33 AM EST Impressions 06/19/2025 11:33 AM EST 1. Single, live intrauterine , current sonographic age of 29 weeks and 6 days, with an estimated date of delivery of August 23, 2025. 2. ??Comparison made with prior examination of January 12, 2025 and delivery at that time was 2025. * ??Estimated Weight (g) by Percentile is based upon an accurate estimated age based onlast menstrual period. ?? TRANSCRIBED BY: ? ELECTRONICALLY SIGNED BY: Michael Eid MD Narrative 06/19/2025 11:33 AM EST FINDINGS: A single, live intrauterine is present with normal cardiac rate of 130 ??beats per minute. Normal activity and amniotic fluid volume. Amniotic fluid index is 17 ??cm. ??Morphology is grossly normal. ?? The current sonographic age is 29 weeks and 6 days, based on the following measurements: ?BPD ?7.5cm (29 weeks, 6 days) ?Head Circumference ?27.8cm ( 30 weeks,3 ??days) ?Abdominal Circumference ? 25.2cm (29 weeks, 2 days) ?Femur Length ? 5.6cm (29 weeks, 4 days) ?Presentation ?Cephalic ? Weight (g) by Percentile ??16.6 % * These measurements result in an estimated date of delivery of ??August 23, 2025. ?? The current estimated weight is 1414 ?? grams (3 ??pound, 2 ??ounces). ?? Procedure Note Michael Eid MD - 06/19/2025 FINDINGS: A single, live intrauterine is present with normal cardiacrate of 130 beats per minute. Normal activity and amniotic fluidvolume. Amniotic fluid index is 17 cm. Morphology is grossly normal.The current sonographic age is 29 weeks and 6 days, based on the followingmeasurements: BPD 7.5cm (29 weeks, 6 days) Head Circumference 27.8cm ( 30 weeks,3 days) Abdominal Circumference 25.2cm (29 weeks, 2 days) Femur Length 5.6cm (29 weeks, 4 days) Presentation Cephalic Weight (g) by Percentile 16.6 % * These measurements result in an estimated date of delivery of August. The current estimated weight is 1414 grams (3 pound, 2ounces). IMPRESSION: 1. Single, live intrauterine , current sonographic age of 29weeks and 6 days, with an estimated date of delivery of August 23, 2025. 2. Comparison made with prior examination of January 12, 2025 and deliveryat that time was August 23, 2025. * Estimated Weight (g) by Percentile is based upon an accurateestimated age based on last menstrual period. TRANSCRIBED BY: ELECTRONICALLY SIGNED BY: Michael Eid MD Authorizing ProviderResult TypeResult StatusCorey April DOIMG OB US PROCEDURES Final Result * (ABNORMAL) POCT urinalysis dipstick manually resulted (05/29/2025 11:46 AM EST)ComponentValueRef RangeTest MethodAnalysis TimePerformed AtPathologist SignatureColor, UAYellowClarity, UAClearGlucose, UANegativeNegative - 1999(110) ++++ mg/dLBilirubin, UANegativeNegative - 4(70) +++ mg/dLKetones, UA NegativeNegative - 160(16) ++++ mg/dLSpec Grav, UA1.0151 - 1.03Blood, UA NegativeNegative - 50 Jae/mcLpH, UA6.55 - 9Protein, UAPositiveNegative - 2000(20) ++++ mg/dLUrobilinogen, UA1.00.2 - 12 mg/dLLeukocytes, UAPositive Negative - 500+++ Marsha/mcLComment:3+Nitrite, UANegativeNegative - Positive Specimen (Source)Anatomical Location / LateralityCollection Method / Volume Collection TimeReceived YqfgKkids79/05/2025 11:46 AM EST Narrative Authorizing ProviderResult TypeResult StatusCorey April DOPOINT OF CARE TEST ENTER/EDIT ORDERABLESFinal Result documented in this encounter Visit Diagnoses Diagnosis 28 weeks gestation of ([facility]) Third trimester ([facility]) state, incidental Hypertension, unspecified type Seizure (HCC) Other convulsions Hemoglobin low Unspecified anemia Hypertension, unspecified type Seizure (HCC) Other convulsions documented in this encounter Additional Health Concerns Active ProblemsNoted DateDiagnosed DateOB Wbzxdliwb51/29/2023 documented as of this encounter Care Teams Team MemberRelationshipSpecialtyStart [place] [address] [place], [place] [phone] PCP - GeneralFamily Medicine01/14/23documented as of this encounter
--- OUTSIDE RECORDS SUMMARY | 2025-06-12 18:05 | XMS_ITS | Continuity of Care Document ---
Author Organization [facility] Address [address] [place] [address] Phone Care Team Providers Care Senior Energy Consultant Name Role Phone Norma Victor Unavailable Unavailable Allergies, Adverse Reactions, Alerts Substance [...] BP >=130-139MM HG MED LIST DOCD IN [facility] RVW MEDS BY RX/DR IN [facility] PT TOBACCO USE DONE RCVD TLK Pt inelig neg scrn depres ROUTINE VENIPUNCTURE TB Read TB INTRADERMAL TEST IMMUNIZATION ADMIN HEP B VACCINE, ADULT, IM IMMUNIZATION ADMIN TDAP VACCINE >7 IM Covid-19 Vaccine Administration 023 Covid-19 Vaccine, 50 Mcg Moderna 12y Plu s PREV VISIT, EST, AGE 18-39 DIAST BP 80-89 MM HG SYST BP < 130 MM HG MED LIST DOCD IN [facility] RVW MEDS BY RX/DR IN [facility] TOBACCO NON-USER Pt inelig neg scrn depres [...] [facility] Covid Testing [facility] TB INTRADERMAL TEST Results Test Name Date and Time Measure Units Reference Range Abnormal Flag Status Comments Panel Description: Complete Blood Count Auto Dif f Final White Blood Count 025 23:05:00 9.3 [CFU]/mL 3.8-11.6 N Final Performed by:[facility] ([id number])[address] [place] [address] Uncorrected WBC 23:05:00 9.3 10*3/uL 3.8-11.6 N Final Performed by:[facility] ([id number])[address] [facility] [place] [address] Red Blood Count 23:05:00 3.20 10*6/uL 3.60-5.00 L Final Performed by:[facility] ([id number])[address] [place] [address] Hemoglobin 23:05:00 9.7 g/dL 11.8-15.4 L Final Performed by:[facility] ([id number])[address] [place] [address] Hematocrit 23:05:00 28.2 % 34.0-46.4 L Final Performed by:[facility] ([id number])[address] [place] [address] Mean Corpuscular Volume 23:05:00 88.3 fL 80-100 N Final Performed by:[facility] ([id number])[address] [place] [address] Mean Corpuscular Hemoglobin 23:05:00 30.4 pg 24.7-34.3 N Final Performed by:[facility] ([id number])[address] [place] [address] Mean Corpuscular HGB Conc 23:05:00 34.4 g/dL 32.0-35.0 N Final Performed by:[facility] ([id number])[address] [place] [address] Red Cell Distribution Width 23:05:00 12.5 % 11.9-15.3 N Final Performed by:[facility] ([id number])[address] [place] [address] Platelet Count 23:05:00 255 10*3/uL 150-450 N Final Performed by:[facility] ([id number])[address] [place] [address] Mean Platelet Volume 23:05:00 7.3 fL 6.3-10.7 N Final Performed by:[facility] ([id number])[address] [place] [address] Monocyte Distribution Width 23:05:00 18.67 % 0.00-20.00 N Final Performed by:[facility] ([id number])[address] [place] [address] Neutrophils % (Auto) 23:05:00 65.1 % . Final Performed by:[facility] ([id number])[address] [place] [address] Lymphocytes % (Auto) 23:05:00 25.4 % . Final Performed by:[facility] ([id number])[address] [place] [address] Monocytes % (Auto) 23:05:00 9.2 % . Final Performed by:[facility] ([id number])[address] [place] [address] Eosinophils % (Auto) 23:05:00 0.1 % . Final Performed by:[facility] ([id number])[address] [place] [address] Basophils % (Auto) 23:05:00 0.2 % . Final Performed by:[facility] ([id number])[address] [place] [address] NRBC% 23:05:00 0.1 /100{WBC } 0-0.5 N Final Performed by:[facility] ([id number])[address] [place] [address] Neutrophils # (Auto) 23:05:00 6.1 10*3/uL 1.8-7.7 N Final Performed by:[facility] ([id number])[address] [place] [address] Lymphocytes # (Auto) 025 23:05:00 2.4 10*3/uL 1.00-4.8 N Final Performed by:[facility] ([id number])[address] [place] [address] Monocytes # (Auto) 025 23:05:00 0.9 10*3/uL 0.0-0.8 H Final Performed by:[facility] ([id number])[address] [place] [address] Eosinophils # (Auto) 025 23:05:00 0.0 10*3/uL 0.0-0.45 N Final Performed by:[facility] ([id number])[address] [place] [address] Basophils # (Auto) 025 23:05:00 0.0 10*3/uL 0.0-0.2 N Final PERFORMED BY:[facility] TEODOROElzbietaGLADBROOK, [place] [phone] 7PATHOLOGIST MEDICAL DIRECTORIMTIAZ GUAN M.D.Performed by:[facility] ([id number])[address] [place] [address] Advance Directives Directive Yes / No Effective Date File Name No Information Encounters Encounter Description Practice Location Reason(s) For Visit Diagnoses Date Provider Providers Copied on Encounter [facility], [address] [place] [address], [id number] , tel:+ [phone] No Information 5 Clinton HERIBERTO Green. [address] [place] [address], [id number], . tel:[phone] OFFICE/OUTPA TIENT VISIT, EST [facility], [address] [place] [address], [id number] , tel:[phone] EHOVE est care (chief complaint)La b draw (chief complaint) Need for hepatitis C screening testScreening for diabetes mellitusScreening for endocrine disorderScreening for lipid disordersScreening for HIV (human immunodeficiency virus)Body mass index [BMI] 28.0-28.9, adultEssential hypertensionHistory of seizure 4 Jason Diaz. [address] [place] [address], [id number], [place]. tel:[phone] [facility], [address] [place] [address], [id number] , [place] tel: [phone] [facility] Hep B Titer (chief complaint) Encounter for antibody response examination 4 Monet Chen. [address], [place], [id number] , [place]. tel: [phone] [facility], [address] [place] [address], [id number] , [place] tel: [phone] [facility] No Information 4 Monet Chen. [address], [place], [id number] , [place]. tel: [phone] [facility], [address] [place] [address], [id number] , [place] tel: [phone] [facility] Encounter for screening for respiratory tuberculosis 4 Monet Chen. [address] [place] [address], [id number] , [place]. tel: [phone] [facility], [address] [place] [address], [id number] , [place] tel: [phone] [facility] No Information 3 Monet Chen. [address] [place] [address], [id number] , [place]. tel: [phone] [facility], [address] [place] [address], [id number] , [place] tel: [phone] [facility] No Information 3 Monet Chen. [address] [place] [address], [id number] , [place]. tel: [phone] PREV VISIT, EST, AGE 18-39 [facility], [address] [place] [address], [id number] , [place] tel: [phone] [facility] Pillars Appointment (chief complaint) Body mass index [BMI] 31.0-31.9, adultEncntr for general adult medical exam w/o abnormal findings 3 Bernardo Montenegro. [address], [place], [id number] , [place]. tel: [phone] [facility], [address], [place], [id number] , [place] tel: [phone] [facility] No Information 3 Monet Chen. [address], [place], [id number] , [place]. tel: [phone] OFFICE/OUTPA TIENT VISIT, EST [facility], [address], [place], [id number] , [place] tel: [phone] [facility] Problem Visit (chief complaint) Morning sicknessBody mass index [BMI]30.0-30.9, adult 3 Bernardo Montenegro. [address], [place], [id number] , [place]. tel: [phone] [facility], [address] [place] [address], [id number] , [place] tel: [phone] [facility] Encounter For Screening For Covid-19 3 Monet ARTEAGA Bryn. [address], [place], [id number] , [place]. tel: [phone] [facility], [address] [place] [address], [id number] , [place] tel: [phone] [facility] Lab draw (chief complaint) Encounter for antibody response examination 3 Monet Chen. [address], [place], [id number] , [place]. tel: [phone] [facility], [address] [place] [address], [id number] , [place] tel: [phone] [facility] No Information 3 Monet Chen. [address] [place] [address], [id number] , [place]. tel: [phone] [facility], [address] [place] [address], [id number] , [place] tel: [phone] [facility] Encounter for screening for respiratory tuberculosis 3 Monet Chen. [address], [place], [id number] , [place]. tel: [phone] [facility], [address], [place], [id number] , [place] tel: [phone] [facility] Encounter For Screening For Covid-19 2 Viscchuy Chen. [address], [place], [id number] , [place]. tel: [phone] [facility], [address] [place] [address], [id number] , [place] tel: [phone] [facility] -obstetrics gynecology md exam w/o abn findingsEncounter for gynecological examination (general) (routine) without abnormal findings 2 Jose Antonio DELEON-C Vandana. [address] [place], [address], [place]. tel: [phone] [facility], [address] [place] [address], [id number] , [place] tel: [phone] [facility] No Information 2 Monet Chen. [address], [place], [id number] , [place]. tel: [phone] OFFICE/OUTPA TIENT VISIT, [facility], [address] [place] [address], [id number] , [place] tel: [phone] [facility] Bug Bite (chief complaint) Insect bite without infectionSkin rash 2 Jose Antonio NORWOODP-C Vandana. [address] [place], [address], [place]. tel: [phone] OFFICE/OUTPA TIENT VISIT, [facility], [address] [place] [address], [id number] , [place] tel: [phone] [facility] otalgia (chief complaint) Body mass index [BMI] 32.0-32.9, adultOtalgia of left earLeft acute otitis media 2 Jose Antonio DELEON-Darlene Ross. [address] [place], [address], [place]. tel: [phone] PREV VISIT, EST, AGE 18-39 [facility], [address], [place], [id number] , [place] tel: [phone] [facility] pillars (chief complaint) Encntr for general adult medical exam w/o abnormal findingsEssential hypertensionCough, persistent 2 Mik Green. [address] [place], [address], [place]. tel: [phone] [facility], [address] [place] [address], [id number] , [place] tel: [phone] [facility] Encounter For Screening For Covid-19 2 Visci DO Bryn. [address], [place], [id number] , [place]. tel: [phone] [facility], [address] [place] [address], [id number] , [place] tel: [phone] [facility] No Information 1 Visci DO Bryn. [address], [place], [id number] , [place]. tel: [phone] [facility], [address] [place] [address], [id number] , [place] tel: [phone] [facility] No Information 1 Visci DO Bryn. [address] [place] [address], [id number] , [place]. tel: [phone] PREV VISIT, NEW, AGE 18-39 [facility], [address], [place], [id number] , [place] tel: [phone] [facility] Pillars (chief complaint)La b draw (chief complaint) Encntr for general adult medical exam w/o abnormal findingsHistory of seizure Mar- 1 Mik Green. [address] [place] [address] [place], [address], [place]. tel: [phone] [facility], [address], [place], [id number] , [place] tel: [phone] [facility] No Information 1 Monet Chen. [address], [place], [id number] , [place]. tel: [phone] [facility], [address] [place] [address], [id number] , [place] tel: [phone] [facility] No Information 1 Monet Chen. [address] [place] [address], [id number] , [place]. tel: [phone] [facility], [address] [place] [address], [id number] , [place] tel: [phone] [facility] Encounter for screening for other viral disease 1 Monet Chen. [address], [place], [id number] , [place]. tel: [phone] [facility], [address] [place] [address], [id number] , [place] tel: [phone] [facility] No Information 1 Monet Chen. [address] [place] [address], [id number] , [place]. tel: [phone] Referring Provider: [facility], [address] [place] [address], [id number] , [place] tel: [phone] [facility] Encounter for screening for respiratory tuberculosis 0 Monet Chen. [address] [place] [address], [id number] , [place]. tel: [phone] Family History Family Member Type Diagnosis Age [...] egistry Payers Payer name Insurance type Covered constitution party ID Authoriza tiluis(s) [employer] [place] [id number] [employer] [place] [id number] [employer] [place] [id number] [employer] [place] [id number] [employer] [place] [id number] [employer] [place] [id number] Social History Type Description Quantity Date Captured Comments Sex Female Smoking Status No Information Sexual Orientation Straight or heterosexual Gender Identity Female Chief Complaint And Reason For Visit No Information Reason For Referral Reason For Referral No Information Plan Of Treatment Date Type Action Status Goal Hepatitis C screening. Due o n due Goal Depression screening. Due on due Goal Tdap due Goal Lipid panel. Due on 034 due Goal Influenza vaccine. Due on due Goal Unhealthy drug use screening . Due on due Goal RLP. Due on due Goal HPV. Due on due Goal PRAPARE ASSESSMENT. Due on A due Goal Tdap Vaccine. Due on 2032 due Goal ECG. Due on due Goal Urinalysis. Due on 24 due Goal Tobacco cessation counseling completed Goal Lifestyle education regardin g diet completed Goal Tobacco cessation counseling completed Goal Hep A. Due on du e Goal HPV. Due on due Goal Lipid [...] due Goal ECG. Due on due Goal RLP. Due on [...] e Goal Tdap. Due on due Goal PAP. [...] du e Goal Lipid panel. Due on 034 due Goal Tdap Vaccine. Due on 2022 [...] PRAPARE ASSESSMENT. Due on O due Goal Influenza vaccine. Due on Oc [...] Hep A. Due on du e Goal Unhealthy drug use screening . Due [...] on due Goal Influenza vaccine. Due on Se due Goal PRAPARE ASSESSMENT. Due on S due Goal RLP. Due on due Goal [...] on due Goal PRAPARE ASSESSMENT. Due on due Goal Depression screening. Due on due Goal ECG. Due on due Goal Urinalysis. Due on due Goal PRAPARE ASSESSMENT. Due on due Goal RLP. Due on [...] on due Goal PRAPARE ASSESSMENT. Due on due Goal Tdap. Due on [...] due Goal ECG. Due on due Goal Tdap. Due on due Goal Lipid panel. Due on 027 due Goal RLP. Due on due Goal Influenza vaccine. Due on due Goal PAP. Due on due Goal Depression screening. Due on due Goal ECG. Due on due Goal Urinalysis. Due on due Goal Dietary management education , guidance, and counseling completed Goal ECG. Due on due Goal Urinalysis. Due on due Goal Tdap. Due on due Goal Lipid panel. Due on 026 due Goal RLP. Due on due Goal Influenza vaccine. Due on due Goal PAP. Due on due Goal Depression screening. Due on due Goal Dietary management education [...] was switched from Lisinopril to Labetolol by [employer] Setter Helper (Dr. Sheppard) when she was about 4 [...] B Titer Pt here for Hep B titer.DLoparNorberto Pillars Appointment Here for eusebia starks. Will have labs drawn tomorrow.Women's Health: ObviouslyFlu: Already has it//Josiah RNOB/ENTERPRISE SOFTWARE ENGINEER for - Dr. Bonilla in [facility] concerns today. Pillars labs scheduled for tomorrow, patient not fasting today. Flu injection up to date. Seizure disorder well controlled. Off BP medication for 1 day due to running out BP well controlled. Morning nausea controlled at this time. COVID-19 1 week ago symptoms resolved. Nolvia Fletcher Problem Visit This morning lisachuy parham sitting in parking lot about to [...] symptoms prior without need for zofran use. RGosumacarlee [facility] Lab draw Pt presents for lab draw. Labs drawn LAC. 2x2 and bandage applied. //JANNET Concepcion Bug Bite Pt here today fo r bug bite to upper Left leg. Pt sates she was bitten yesterday but it is more red and swollen since yesterday. Pt sates it itches. No other issues or concernsTGrodi RN CASE MANAGER I have reviewed all above information and agree. Was driving with top down on vehicle was and either bit by a bug or stung by a bee to left upper inner thigh. Was wearing shorts at the time. NKA that pt is aware of. Happened yesterday. No fever/chills. Area getting larger, warmer and redder. Was sent to office by facility supervisor to assess if ATB are needed. [...] needs today. Kamilla FLETCHER pillars Here for [facility] s exam to complete employee pillars and to establish care. Last seen PCP from [place] in September 2021. History of new onset [...] results. Vision-no concernsDental-last cleaning over 1 yr agoWoman's health-seeing provider at [facility], Aug 2021ANGEL [place] Lab draw Labs drawn from left AC x 1 attempt, tolerated well, pressure dressing applied to area. Fredi Bettencourt RN Pillars Patient presents for an A pillars physical exam, pt has established dental and optometry. No other complaints. DesmondAmayamickybianca noted. Has established family provider, Suzanne Uriarte. Next appt is in May. Thinking of transferring care here to [facility]. Recent history of sudden onset seizure approx 1 year ago while sleeping. Testing completed (MRI, EEG) with Nedra Mccray with [facility]. Taking medications as prescribed. No recent seizure activity. Denies any concerns at this time. Vision-Recently prescribed new glassesDental- few yearsWCamrivox- appt yesterdayANGEL [place] Functional Status Date Functional Assessmen t No [...] to Body mass index [BMI] 31.0-31.9, adult Lifestyle education regarding di et Related to Body mass index [BMI] 31.0-31.9, adult 1. May return to work tomorrow. Related to Morning sickness Giving encouragement to exercise Related to Body mass index [BMI] 30.0-30.9, adult Lifestyle education regarding di et Related to Body mass index [BMI] 30.0-30.9, adult Giving encouragement to exercise Related to Body mass index [BMI] 32.0-32.9, adult Dietary management e ducation, guidance, and counseling Related to Body mass index [BMI] 32.0-32.9, adult 1. Use cough med as needed; shelli at nighttime2. Increase oral fluids/water to thin secretions3. Call if worsening symptoms or any concerns Related to Cough, persistent 1. Reduce sodium and eat a Heart Healthy diet (less than 300mg cholesterol/day) or DASH diet2. Exercise moderate intensity at least 30 min/day for 5 days/week3. Check Blood pressure at home and keep a log if headaches4. Continue Medication5. No smoking/Avoid smoke exposure6. Limit alcohol intake7. Follow-up in 3 months Related to Essential hypertension 1. Complete labs whe n fasting; will call with results2. F/U yearly for annual exam Related to Encntr for general adult medical exam w/o abnormal findings 1. Labs obtained, wi ll call with [...]
--- OUTSIDE RECORDS SUMMARY | 2025-06-27 15:00 | XMS_ITS | Encounter Summary ---
Author Organization [facility] Address [address] [place] [address] Care Team Providers Care Composite Worker Name Role Phone Suzanne Uriarte MD Primary Care Provider +1- [phone] Reason for Visit * ReasonCommentsRoutine Visit Encounter Details DateTypeDepartmentCare Team (Latest Contact Info)Raqsigigpfw15/10/2025 3:00 PM ESTRoutine [facility] [address] [place] [phone] Willis Chen DO [address] [place] [phone] Third trimester ([facility]); 32 weeks gestation of ([facility]); Seizure (HCC); Hypertension, unspecified type; Antepartum anemia ([facility]); SGA (small for gestational age) ([facility]) Social History Tobacco UseTypesPacks/DayYears UsedDateSmoking Tobacco: Never Assessed Estimated Date of HrczhfynCtikdhqyXwg65/02/2026Based on last menstrual period of 11/13/2024Sex and Gender InformationValueDate RecordedSex Assigned at BirthFemale 12/21/2022 8:22 PM EDTLegal FdaQtakhy45/15/2023 11:40 PM EDTGender Identity Hcrkgr9512/21/2022 8:22 PM EDTSexual StlaknyfphrBvhamdsi57/05/2023 8:22 PM EDT documented as of this encounter Last Filed Vital Signs Vital SignReadingTime TakenCommentsBlood Yibruboa612/7606/27/2025 3:16 PM EST Pulse--Temperature--Respiratory Rate--Oxygen Saturation--Inhaled Oxygen Concentration--Mpxhvr90.6 kg (197 lb 8 oz)06/27/2025 3:16 PM ESTHeight--Body Mass Index29.1705 12:00 PM EDTdocumented in this encounter Progress Notes * Cyndivivi Andrade, CHRIS - 06/27/2025 3:00 PM EST Reason for Appointment: Patient ID: Kavya Guerrero is a 29 y.o. female who presents for Routine Visit Patient presents today for Return OB appointment. MEDICATIONS Current Outpatient Medications Medication Instructions docusate sodium (COLACE) 50 mg, 2 times daily iron polysaccharides (PROFE) 391.3 mg, Oral, Daily labetalol (NORMODYNE) 200 mg, Oral, 2 times daily lamoTRIgine (LAMICTAL) 200 mg, 2 times daily MV-Min-Fe Fum-FA-DHA ( 1 PO) Take by mouth promethazine (PHENERGAN) 25 mg, Oral, Every 6 hours PRN, Take 1 tablet by mouth every 6 hours as needed for nausea. ALLERGIES No Known Allergies PROBLEMS Active Ambulatory Problems Diagnosis Date Noted Hypertension 01/14/2023 Seizure ([facility]) 07/09/2021 Breech presentation, no version ([facility]) 07/29/2023 Resolved Ambulatory Problems [...] nursing note reviewed. Exam conducted with a sanding machine tender present. Vitals: Estimated body mass index is 29.17 kg/m?? as calculated from the following: Height as of 11/16/22: 5' 9 . Weight as of this encounter: 197 lb 8 oz. BP: 122/76 Patient's last menstrual period was 11/13/2024. Assessment/Plan ICD-10-CM 1. Third trimester ([facility]) Z34.93 POCT urinalysis dipstick manually resulted 2. 32 weeks gestation of ([facility]) Z3A.32 3. Seizure ([facility]) R56.9 4. Hypertension, unspecified type I10 5. Antepartum anemia ([facility]) O99.019 6. SGA (small for gestational age) ([facility]) P05.10 Assessment/Plan Return OB: Patient presents today for a routine obstetrics appointment. Patient is currently 32w2d . Patient states she is doing well [...] Plan of Treatment DateTypeDepartmentCare Team (Latest Contact Info)Rbiddaqzral14/05/2026 3:00 PM ESTAncillary Procedure [facility] [address] [place] [phone] 07/23/2025 3:30 PM ESTRoutine [facility] [address] [place] [phone] AprilWillis, DO [address] [place] [address] NameTypePriorityAssociated DiagnosesOrder ScheduleUS biophysical profile w non stress testImagingRoutine Seizure (HCC) Hypertension, unspecified type Antepartum anemia ([facility]) SGA (small for gestational age) ([facility]) Expected: 06/27/2025 (Approximate), Expires: 12/26/2025documented as of this encounter Goals GoalPatient Goal TypeAssociated ProblemsRecent ProgressPatient-Stated?Author Reminders Care PlanOB RemindersNoOpen Scheduling, Backgrounddocumented as of this encounter Procedures Procedure NamePriorityDate/TimeAssociated DiagnosisCommentsPOCT URINALYSIS YIAYMPEDOygygde52/10/2025 3:20 PM EST Third trimester ([facility]) documented in this encounter Results * (ABNORMAL) POCT urinalysis dipstick manually resulted (06/27/2025 3:20 PM EST) ComponentValueRef RangeTest MethodAnalysis TimePerformed AtPathologist SignatureColor, UAYellowClarity, UAClearGlucose, UANegativeNegative - 2000(110) ++++ mg/dLBilirubin, UANegativeNegative - 4(70) +++ mg/dLKetones, UA NegativeNegative - 160(16) ++++ mg/dLSpec Grav, UA1.0201 - 1.03Blood, UA NegativeNegative - 50 Jae/mcLpH, UA6.55 - 9Protein, UAPositiveNegative - 2000(20) ++++ mg/dLComment:1+Urobilinogen, UA>=8.00.2 - 12 mg/dLComment:Trace Leukocytes, UANegativeNegative - 500+++ Marsha/mcLNitrite, UANegativeNegative - PositiveSpecimen (Source)Anatomical Location / LateralityCollection Method / VolumeCollection TimeReceived YixiPbdvq44/10/2025 3:20 PM EST Narrative Authorizing ProviderResult TypeResult StatusCorey April DOPOINT OF CARE TEST ENTER/EDIT ORDERABLESFinal Result documented in this encounter Visit Diagnoses Diagnosis Third trimester ([facility]) state, incidental 32 weeks gestation of ([facility]) Seizure (HCC) Other convulsions Hypertension, unspecified type Antepartum anemia ([facility]) SGA (small for gestational age) ([facility]) Aglzb-bfy-dtley without mention of malnutrition, unspecified (weight) documented in this encounter Additional Health Concerns Active ProblemsNoted DateDiagnosed DateOB Ixnseaeao77/29/2023 documented as of this encounter Care Teams Team MemberRelationshipSpecialtyStart [place] [address] [address] [place], [place] [phone] PCP - GeneralFamily Medicine01/14/23documented as of this encounter
--- OUTSIDE RECORDS SUMMARY | 2025-07-09 16:00 | XMS_ITS | Encounter Summary ---
Author Organization [facility] Address [address] [place] [address] Care Team Providers Care Ivory Carver Name Role Phone Suzanne Uriarte MD Primary Care Provider +1- [phone] Reason for Visit * ReasonCommentsRoutine Visit Encounter Details DateTypeDepartmentCare Team (Latest Contact Info)Ujailqxygii31/22/2025 4:00 PM ESTRoutine [facility] [address] [place] [address] Roula Grullon PA [address] [place] [address] 34 weeks gestation of ([facility]); Third trimester ([facility]); Seizure (HCC); Hypertension, unspecified type; Antepartum anemia ([facility]); SGA (small for gestational age) ([facility] [place] Social History Tobacco UseTypesPacks/DayYears UsedDateSmoking Tobacco: Never Assessed Estimated Date of SetkeiyrDmonhgymPik58/02/2026Based on last menstrual period of 11/13/2024Sex and Gender InformationValueDate RecordedSex Assigned at BirthFemale 12/21/2022 8:22 PM EDTLegal VkpGvprce97/15/2023 11:40 PM EDTGender Identity Bwexhq9712/21/2022 8:22 PM EDTSexual FedyxhmerqjNufeeijv15/05/2023 8:22 PM EDT documented as of this encounter Last Filed Vital Signs Vital SignReadingTime TakenCommentsBlood Ijxhdvpb004/6012 4:05 PM EST Pulse--Temperature--Respiratory Rate--Oxygen Saturation--Inhaled Oxygen Concentration--Zzrwfq57.2 kg (201 lb)07/09/2025 4:05 PM ESTHeight--Body Mass Index29.6805 12:00 PM EDTdocumented in this encounter Progress Notes * CHRISTIANA Mills - 07/09/2025 4:00 PM EST Reason for Appointment: Patient ID: [...] - [place]) 07/09/2021 Breech presentation, no version ([facility] [place]) 07/29/2023 [...] nursing note reviewed. Exam conducted with a coffee roaster present. Vitals: Estimated body mass index is 29.68 kg/m?? as calculated from the following: Height as of 11/16/22: 5' 9 . Weight as of this encounter: 201 lb. BP: 110/60 Patient's last menstrual period was 11/13/2024. Assessment/Plan ICD-10-CM 1. 34 weeks gestation of ([facility]) Z3A.34 Urine culture POCT urinalysis dipstick manually resulted 2. Third trimester ([facility]) Z34.93 Urine culture POCT urinalysis dipstick manually resulted 3. Seizure ([facility] [place]) R56.9 4. Hypertension, unspecified type I10 5. Antepartum anemia ([facility]) O99.019 6. SGA (small for gestational age) ([facility]) P05.10 Assessment/Plan Return OB: Patient presents today for a routine obstetrics appointment. Patient is currently 34w0d . Patient states she is doing well but has complaints of being tired due to current . Patient has verbalizes frequent movement. labor precautions was discussed/given and patient was instructed to perform kick counts three times a day. Urine Culture was sent. Orders Placed This Encounter Procedures Urine culture POCT urinalysis dipstick manually resulted Follow Up: Patient is to return to office in 2 week for routine OB appointment. Documented by Lynette Engel LPN on behalf of: CHRISTIANA Mills documented in this encounter Plan of Treatment DateTypeDepartmentCare Team (Latest Contact Info)Zxtefsyfwfh17/05/2026 3:00 PM ESTAncillary Procedure [facility] [address] [place] [phone] 07/23/2025 3:30 PM ESTRoutine [facility] [address] [place] [address] Willis Chen, [address] [place] [address] NameTypePriorityAssociated DiagnosesOrder ScheduleUrine cultureMicrobiology Routine 34 weeks gestation of ([facility]) Third trimester ([facility]) Ordered: 07/09/2025documented as of this encounter Goals GoalPatient Goal TypeAssociated ProblemsRecent ProgressPatient-Stated?Author Reminders Care PlanOB RemindersNoOpen Scheduling, Backgrounddocumented as of this encounter Procedures Procedure NamePriorityDate/TimeAssociated DiagnosisCommentsPOCT URINALYSIS HJMGZQJOJveubuk77/22/2025 4:14 PM EST 34 weeks gestation of ([facility]) Third trimester ([facility]) documented in this encounter Results * POCT urinalysis dipstick manually resulted (07/09/2025 4:14 PM EST)Component ValueRef RangeTest MethodAnalysis TimePerformed AtPathologist SignatureColor, UABrownClarity, UACloudyGlucose, UANegativeNegative - 2000(110) ++++ mg/dL Bilirubin, UANegativeNegative - 4(70) +++ mg/dLKetones, UANegativeNegative - 160(16) ++++ mg/dLSpec Grav, UA1.0151 - 1.03Blood, UANegativeNegative - 50 Jae/mcLpH, UA6.05 - 9Protein, UANegativeNegative - 2000(20) ++++ mg/dL Urobilinogen, UA1.00.2 - 12 mg/dLLeukocytes, UANegativeNegative - 500+++ Marsha/mcLNitrite, UANegativeNegative - PositiveSpecimen (Source)Anatomical Location / LateralityCollection Method / VolumeCollection TimeReceived Time Urine07/09/2025 4:14 PM EST Narrative Authorizing ProviderResult TypeResult StatusAmy Mitchel [facility] TEST [facility]TER/EDIT ORDERABLESFinal Result documented in this encounter Visit Diagnoses Diagnosis 34 weeks gestation of ([facility]) Third trimester ([facility]) state, incidental Seizure (HCC) Other convulsions Hypertension, unspecified type Antepartum anemia ([facility]) SGA (small for gestational age) ([facility]) Jbbwl-njm-mmbqm without mention of malnutrition, unspecified (weight) documented in this encounter Additional Health Concerns Active ProblemsNoted DateDiagnosed DateOB Xzuoqqmvz48/29/2023 documented as of this encounter Care Teams Team MemberRelationshipSpecialtyStart [place] [address] [place] [address] PCP - GeneralFamily Medicine01/14/23documented as of this encounter
--- OUTSIDE RECORDS SUMMARY | 2025-07-10 16:44 | XMS_ITS | Encounter Summary ---
Author Organization [facility] Address [address] [place] [address] Phone Care Team Providers Care Compliance Clerk Name Role Phone Suzanne Uriarte MD Primary Care Provider + Encounter Details DateTypeDepartmentCare Team (Latest Contact Info)Vaaeknlxfuc10/08/2025Orders Only [facility] [address] [place] [address] Dr Chiu [address] [phone] Provider, MD [facility] [place] [address] Social History Tobacco UseTypesPacks/DayYears UsedDateSmoking Tobacco: NeverPassive Smoke Exposure: NeverSmokeless Tobacco: CurrentAlcohol UseStandard Drinks/WeekComments Not Currently0 (1 standard drink = 0.6 oz pure alcohol)SociallyPHQ-2AnswerDate RecordedPatient Health Questionnaire-2 Znfvt91808/21/2024UDIT-CAnswerDate RecordedQ1: How often do you have a [...] Plan of Treatment DateTypeDepartmentCare Team (Latest Contact Info)Sgudwtuvaza32/18/2026 2:00 PM EDTOffice Visit [address] Chiu [address] [place] [phone] Laila Jin, MORTGAGE LOAN REVIEWER-DISTRIBUTOR [employer]VERTISING [employer]ERIAL [address] [place] [address] documented as of this encounter Procedures Procedure [...] Team MemberRelationshipSpecialtyStart [place] [address] [place] [address] PCP - General08/14/20documented as of this encounter
--- OUTSIDE RECORDS SUMMARY | 2025-07-10 16:44 | XMS_ITS | Clinical Summary ---
Author Organization [facility] Address [address] [place] [address] Care Team Providers Care Administrative Support Specialist Name Role Phone Koffi Uriarte MD Primary Care Provider +1- [phone] Allergies No known active allergies Medications MedicationSigDispense [...] Problems ProblemNoted DateDiagnosed DateBreech presentation, no version ([facility]) 07/29/20233577Dexuulrcykud07/29/0304Ollnrep95/22/2021Estimated Date of GcwgpjjaUidbaypiUfx38/02/2026ased on last menstrual period of 11/13/2024 Encounters DateTypeDepartmentCare HfogMicuukhcrsu16/23/2025b[place] [address] Lisa Chen, DO 07/09/2025 4:00 PM [place] [address] Roula Grullon PA 34 weeks gestation of ([facility]); Third trimester ([facility]); Seizure (HCC); Hypertension, unspecified type; Antepartum anemia ([facility]); SGA (small for gestational age) ([facility])07/09/2025amboo [place] [address] Roula Grullon PA 07/05/2025linisync Result Encounter NOMS External Department Unsolicited Lisa Chen, DO 07/02/20259218Gnyjnu35/11/2025[place] [address] Lisa Chen, DO 06/27/2025 3:00 PM [place] [address] Lisa Chen, DO Third trimester ([facility]); 32 weeks gestation of ([facility]); Seizure (HCC); Hypertension, unspecified type; Antepartum anemia ([facility]); SGA (small for gestational age) ([facility])06/27/2025bstract [facility] [address] [facility] [place] [address] Lisa Chen, DO 06/27/2025Telephone [facility] [address] [place] [address] [place] [address] LPN 06/27/2025amboo flowsheet [facility] [address] [place] [address] [place] [address] Lisa Chen, DO 06/26/2025bstract [facility] [address] [place] [address] [place] [address] Lisa Chen, DO 06/25/2025bstract [facility] [address] [place] [address] [place] [address] Lisa Chen, DO 06/25/2025bstract [facility] [address] [place] [address] [place] [address] Lisa Chen, DO 06/25/2025Telephone [facility] [address] [place] [address] [place] [address] Lisa Chen, DO 06/21/2025bstract [facility] [address] [place] [address] [place] [address] Lisa Chen, DO 06/21/2025bstract [facility] [address] [place] [address] [place] [address] Lisa Chen, DO 06/20/20251051Oorqus20/01/2025Abstract [facility] [address] [place] [address] [place] [address] Lisa Chen, DO 5Clinisync Result Encounter NOMS External Department Unsolicited Roula Grullon PA 06/13/2025 3:00 PM ESTRoutine [facility] [address] [facility] [place] [address] Roula Grullon PA Third trimester ([facility]); 30 weeks gestation of ([facility]); Antepartum anemia ([facility])06/13/2025 2:30 PM ESTAncillary Procedure [facility] [address] [facility] [address] Hypertension, unspecified type; Seizure (HCC)06/13/2025bstract [facility] [address] [facility] [place] [address] Lisa Chen, DO 06/13/2025bstract [facility] [address] [facility] [place] [address] Lisa Chen, DO 06/13/2025bstract [facility] [address] [facility] [place] [address] Lisa Chen, DO 06/12/2025linisync Result Encounter NOMS External Department Unsolicited Lisa Chen, DO 06/12/20257309Mmbtwl76/25/2025Telephone [facility] [address] [facility] [address] Lisa Chen, DO 05/29/2025 11:40 AM ESTRoutine [facility] [address] [facility] [address] Lisa Chen, DO 28 weeks gestation of ([facility]); Third trimester ([facility]); Hypertension, unspecified type; Seizure (HCC); Hemoglobin low05/29/2025amboo flowsheet [facility] [address] [facility] [address] Lisa Chen, DO 05/22/20259360Kkfjrm52/01/2025linisync Result Encounter NOMS External Department Unsolicited Roula Grullon PA 04/30/2025 9:50 AM EDTRoutine [facility] [address] [place] [address] Roula Grullon PA Second trimester ([facility]); 24 weeks gestation of ([facility]); Hypertension, unspecified type; Seizure ([facility]); Diabetes mellitus fwbeiqxez33/13/2025amboo flowsheet [facility] [address] [place] [address] Roula Grullon PA 04/29/20255409Oihvok58/01/2025Refill [facility] [address] [facility] [address] Lisa Chen DO Secondary hypertensionfrom Last 3 Months Social History Tobacco UseTypesPacks/DayYears UsedDateSmoking Tobacco: Never Assessed Estimated Date of XswyyvhyPoymldsoLvz15/02/2026ased on last menstrual period of 11/13/2024Sex and Gender InformationValueDate RecordedSex Assigned at BirthFemale 12/21/2022 8:22 PM EDTLegal NbhTbwcxe74/15/2023 11:40 PM EDTGender Identity Picehh5412/21/2022 8:22 PM EDTSexual LemqlsknrudTnbctjso89/05/2023 8:22 PM EDT Last Filed Vital Signs Vital SignReadingTime TakenCommentsBlood Uaxgalih283/6007/09/2025 4:05 PM EST Pulse--Temperature--Respiratory Rate--Oxygen Saturation--Inhaled Oxygen Concentration--Jthsou33.2 kg (201 lb)07/09/2025 4:05 PM VEVOgjcor978.3 cm (5' 9 )11/16/2022 12:00 PM EDTBody Mass Index29.68011/16/2022 12:00 PM EDT Plan of Treatment DateTypeDepartmentCare Team (Latest Contact Info)Soqllufpvuh12/05/2026 3:00 PM ESTAncillary Procedure [facility] [address] [facility] [address] 07/23/2025 3:30 PM ESTRoutine [facility] [address] [facility] [address] Lisa Chen, DO [address] [facility] [place] [address] Health MaintenanceDue DateLast DoneCommentsHPV/Rovuug9410/02/2023Influenza Vaccine (#1), 04/21/2022, 04/18/2021, Additional history exists Cervical Cancer Iijepwlcv67/20/2028Pap Smear, 03/09/2023 Pneumococcal Vaccine: Pediatrics (0 to 5 Years) and At-Risk Patients (6 to 64 Years)Aged OutNo longer eligible based on patient's age to complete this topic Goals GoalPatient Goal TypeAssociated ProblemsRecent ProgressPatient-Stated?Author Reminders Care PlanOB RemindersNoOpen Scheduling, Background Procedures Procedure NamePriorityDate/TimeAssociated DiagnosisCommentsPOCT URINALYSIS JFPOKBDGTgrwqcv66/22/2025 4:14 PM EST 34 weeks gestation of ([facility]) Third trimester ([facility]) US OB BPP W NON-QSCLON1807/05/2025 10:00 AM EST POCT URINALYSIS ZDKRMWCONlskjga51/10/2025 3:20 PM EST Third trimester ([facility]) CCYPFJHJBNTXdjoypq87/28/2025 2:57 PM EST CCF IJPDNPBTSqaarqf49/28/2025 2:57 PM EST POCT URINALYSIS NYPBEDBDBxgxvsp06/26/2025 3:11 PM EST Third trimester ([facility]) US OB FOLLOW UP TRANSABDOMINAL PHIXUKPIExhdtgg21/26/2025 3:02 PM EST Hypertension, unspecified type Seizure (HCC) TBH UA (CLEAN/CATCH) AUTO DAMAGE APPRAISER/MICRO IF IND.Vmgkfaf7106/12/2025 4:40 PM EST POCT URINALYSIS ETYNDBQPDzwgpld44/11/2025 11:46 AM EST 28 weeks gestation of ([facility]) Third trimester ([facility]) GLUCOSE 1 XLZTUoeswaf51/01/2025 12:28 PM EDT ALL CBC WITH AUTO ISOFOecotet19/01/2025 12:28 PM EDT POCT URINALYSIS OKONIJCMPrjeezm40/13/2025 10:14 AM EDT Second trimester ([facility]) PAP MXALJNzppyyg03/20/2025 12:00 AM EDTfrom Last 3 Months or Most Recently Relevant to Health Maintenance Results * POCT urinalysis dipstick manually resulted (07/09/2025 4:14 PM EST) Only the most recent of5 resultswithin the time period is included. ComponentValueRef RangeTest MethodAnalysis TimePerformed AtPathologist Signature Color, UABrownClarity, UACloudyGlucose, UANegativeNegative - 2000(110) ++++ mg/dLBilirubin, UANegativeNegative - 4(70) +++ mg/dLKetones, UANegativeNegative - 160(16) ++++ mg/dLSpec Grav, UA1.0151 - 1.03Blood, UANegativeNegative - 50 Jae/mcLpH, UA6.05 - 9Protein, UANegativeNegative - 2000(20) ++++ mg/dL Urobilinogen, UA1.00.2 - 12 mg/dLLeukocytes, UANegativeNegative - 500+++ Marsha/mcL Nitrite, UANegativeNegative - PositiveSpecimen (Source)Anatomical Location / LateralityCollection Method / VolumeCollection TimeReceived VtibKanus05/22/2025 4:14 PM EST Narrative Authorizing ProviderResult TypeResult StatusAmy Stella PAPOINT OF CARE TEST ENTER/EDIT ORDERABLESFinal Result * US OB BPP W NON-STRESS (07/05/2025 10:00 AM EST)Anatomical Region LateralityModalityOtherSpecimen (Source)Anatomical Location / Laterality Collection Method / VolumeCollection TimeReceived Time07/05/2025 10:00 AM EST Narrative 07/05/2025 10:02 AM EST [facility] ?[address] ? [place] [address] ? Ultrasound Report ? Signed ? Patient: PRINCESS HUNTER ?MR#: [id number] ?? : 1995 ?Acct:[id number] ?? Age/Sex: 29 / F ?ADM Date: 07/04/25 ?? Loc: US ? Attending Dr: Lisa Chen D.O. ? Ordering Physician: Lisa Chen D.O. ?? Date of Service: 07/04/25 ?? Procedure(s): US OB BPP w non-stress ?? Accession Number(s): [id number] ? cc: Lisa Chen D.O.; KOFFI URIARTE M.D. ? [facility] ? [address] ? [place] [address] ? Patient Name: ?? PRINCESS HUNTER ? MRN: [facility]:[id number] ? date: 1995 ?Sex: F ?? Assigned Patient Location: [facility] ?? Current Patient Location: US ?? Accession/Order Number: [id number] ?? Exam Date: 07/04/2025 ??18:49 ?Report Date: [...] Dictation Location: RADIO-PC-30 ? Electronically authenticated by: [id number] ??Y ?? Date: 07/05/2025 ??10:00 ? Dictated By: ?Cyndi Pisano M.D. ? Signed By: ?12/18/25 1002 ? DD/ 1000 ? TD/TT: ? Nursery School Attendant: Procedure Note Radiology, Radiologist, - 07/05/2025 [place] [address] Ultrasound Report Signed Patient: PRINCESS HUNTER [facility]#: [id number] : 1995Acct:[id number] Age/Sex: 29 / FADM Date: 07/04/25 Loc: US Attending Dr: Lisa Chen D.O. Ordering Physician: Lisa Chen D.O. Date of Service: 07/04/25 Procedure(s): US OB BPP w non-stress Accession Number(s): [id number] cc: Lisa Chen D.O.; KOFFI URIARTE M.D. The [address] [address] Patient Name: PRINCESS HUNTER MRN: [facility]:[id number] date: 1995 Sex: F Assigned Patient Location: [facility] Current Patient Location: [place] Accession/Order Number: [id number] Exam Date: 07/04/2025 18:49 Report Date: 07/05/2025 [...] Pisano M.D. 07/05/2025 10:00 AM Dictation Location: [place] [address] Electronically authenticated by: [id number] Y Date: 0:00 Dictated By: Cyndi Pisano M.D. Signed By:07/05/25 1002 DD/ 1000 TD/TT: Nursery School Attendant: Authorizing ProviderResult TypeResult StatusCorey April HERNANDEZLINISYKETAN IMAGINGFinal Result * (ABNORMAL) TRANSFERRIN (06/15/2025 2:57 PM EST)ComponentValueRef RangeTest MethodAnalysis TimePerformed AtPathologist QcoekjsurNYMSEZOADEP977(A)192 - 364 mg/dLTBHComment: Performed at: ?? - [facility] [address] ??[id number] Pelt Shearer: Jose Fallon PhD, Phone: ??[phone] Specimen (Source)Anatomical Location / LateralityCollection Method / Volume Collection TimeReceived Time06/15/2025 2:57 PM EST06/15/2025 2:59 PM EST Narrative [facility] - 06/16/2025 7:07 AM EST Authorizing ProviderResult TypeResult StatusAmy Mitchel BOATENG BLOOD [...] Eid MD Authorizing ProviderResult TypeResult StatusCorey April DOI OB US PROCEDURES Final Result * (ABNORMAL) TBH UA (CLEAN/CATCH) AUTO DAMAGE APPRAISER/MICRO IF IND. (06/12/2025 4:40 PM EST) ComponentValueRef RangeTest MethodAnalysis TimePerformed AtPathologist SignatureCOLOR URINELT. YELLOWYELLOWTBHCLARITY URINECLEARCLEARTBHSPECIFIC GRAVITY URINE1.0101.005 - 1.025TBHPH URINE7.05.0 - 9.0TBHPROTEIN URINENEGATIVE NEG/TRACE mg/dLTBHGLUCOSE URINE UANEGATIVENEGATIVE mg/dLTBHBILIRUBIN URINE NEGATIVENEGATIVETBHKETONES URINENEGATIVENEGATIVE mg/dLTBHBLOOD URINENEGATIVE NEGATIVETBHNITRITE URINENEGATIVENEGATIVETBHUROBILINOGEN URINE0.20.2 - 1.0 EU/dLTBHLEUKOCYTE ESTERASE URINETRACE(A)NEGATIVETBHURINE MICROSCOPIC INDICATED YESTBHSpecimen (Source)Anatomical Location / LateralityCollection Method / VolumeCollection TimeReceived Time06/12/2025 4:40 PM EST06/12/2025 5:20 PM EST Narrative QUITA - 06/12/2025 5:32 PM EST Authorizing ProviderResult TypeResult StatusCorey April DOCLINISYNCFinal Result Performing OrganizationAddressCity/State/ZIP CodePhone Number QUITA [facility] * GLUCOSE 1 HOUR (05/19/2025 12:28 PM EDT)ComponentValueRef RangeTest Method Analysis TimePerformed AtPathologist SignatureGLUCOSE 1 HOQA520<130 mg/dLTBH Specimen (Source)Anatomical Location / LateralityCollection Method / Volume Collection TimeReceived Time05/19/2025 12:28 PM EDT107/19/2024 12:29 PM EDT Narrative QUITA - 05/19/2025 1:15 PM EDT Authorizing ProviderResult TypeResult StatusAmy [facility] BLOOD ORDERABLES Final ResultPerforming OrganizationAddressCity/State/ZIP CodePhone Number QUITA [facility] * (ABNORMAL) ALL CBC WITH AUTO DIFF (05/19/2025 12:28 PM EDT)ComponentValueRef RangeTest MethodAnalysis TimePerformed AtPathologist SignatureTBH WBC9.84.0 - 11.0 10 3/uLTBHTBH RBC3.21(L)4.20 - 5.40 10 6/uLTBHTBH HGB10.2(L)12.0 - 16.0 g/dLTBHTBH HCT30.2(L)36.0 - 48.0 %TBHTBH MCV94.181.0 - 99.0 fLTBHTBH MCH31.8 26.7 - 34.0 pgTBHTBH MCHC33.829.9 - 35.2 g/dLTBHTBH RDW12.311.0 - 15.0 %TBHTBH KXF573990 - 450 10 3/uLTBHTBH MPV8.9(L)9.5 - 13.5 [...] Performing OrganizationAddressCity/State/ZIP CodePhone Number [facility] * Pap Smear (03/07/2025 12:00 AM EDT)Specimen (Source)Anatomical Location / LateralityCollection Method / VolumeCollection TimeReceived TimeSwabCervical swab / Unknown Narrative Authorizing ProviderResult TypeResult StatusAmy Stella PALAB CYTOLOGY ORDERABLES Final ResultPerforming OrganizationAddressCity/State/ZIP CodePhone Number EXTERNAL LAB from Last 3 Months or Most Recently Relevant to Health Maintenance Additional Health Concerns Active ProblemsNoted DateDiagnosed DateOB Bcryuzhdl71/29/2023 Insurance Care Teams Team MemberRelationshipSpecialtyStart [place] [address] [place], [place] [phone] PCP - GeneralFamily Medicine01/14/23
--- OUTSIDE RECORDS SUMMARY | 2025-07-10 16:44 | XMS_ITS | Encounter Summary ---
Author Organization [facility] Address [address] [place] [address] Phone Care Team Providers Care Vehicle Glass Technician Name Role Phone Suzanne Uriarte MD Primary Care Provider + Encounter Details DateTypeDepartmentCare Team (Latest Contact Info)Lbackvwffix30/10/2025Orders Only [facility] [address] [place] [address] [address] [place] [phone] Nedra Deleon MD [address] [place] [address] [address], [place] [address] Seizure (Multi) (Primary Dx) Social History Tobacco UseTypesPacks/DayYears UsedDateSmoking Tobacco: NeverPassive Smoke Exposure: NeverSmokeless Tobacco: CurrentAlcohol UseStandard Drinks/WeekComments Not Currently0 (1 standard drink = 0.6 oz pure alcohol)SociallyPHQ-2AnswerDate RecordedPatient Health Questionnaire-2 Hmchl78108/21/2024UDIT-CAnswerDate RecordedQ1: How often do you have a [...] Plan of Treatment DateTypeDepartmentCare Team (Latest Contact Info)Fksyhomjmwt72/18/2026 2:00 PM EDTOffice Visit [address]iu [address] [facility] [address] [place] [address] Laila Jin, AUTOMATIC TYPEWRITER INSPECTOR-RAILROAD DETECTIVE [address] [place] [address] documented as of this encounter Visit Diagnoses Diagnosis Seizure (Multi)- Primary Other convulsions documented in this encounter Additional Health Concerns AssessmentNoted TimeA fall risk assessment has been completed for the patient 06/20/2025 2:54 PM ESTdocumented as of this encounter Care Teams Team MemberRelationshipSpecialtyStart [place] [address] [place] [address] PCP - General08/14/20documented as of this encounter
--- OUTSIDE RECORDS SUMMARY | 2025-07-10 16:44 | XMS_ITS | Encounter Summary ---
Author Organization [facility] Address [address] [place] [address] Phone Care Team Providers Care Revenue Liaison Name Role Phone Suzanne Uriarte MD Primary Care Provider + Encounter Details DateTypeDepartmentCare Team (Latest Contact Info)Yozsdzndldt15/10/2025Scanned Document [facility] Building [address] [place] [address] [address] [address] Nedra Deleon MD [address] [place] [address] [address], [place] [address] Social History Tobacco UseTypesPacks/DayYears UsedDateSmoking Tobacco: NeverPassive Smoke Exposure: NeverSmokeless Tobacco: CurrentAlcohol UseStandard Drinks/WeekComments Not Currently0 (1 standard drink = 0.6 oz pure alcohol)SociallyPHQ-2AnswerDate RecordedPatient Health Questionnaire-2 Tjuhy86008/21/2024UDIT-CAnswerDate RecordedQ1: How often do you have a [...] Plan of Treatment DateTypeDepartmentCare Team (Latest Contact Info)Ybjbosulylx29/18/2026 2:00 PM EDTOffice Visit [address] [place] [address] [place] [address] Laila Jin, FITNESS COACH-SYSTEMS PROJECT MANAGER [address] [place] [address] documented as of this encounter Visit Diagnoses Not on filedocumented in this encounter Additional Health Concerns AssessmentNoted TimeA fall risk assessment has been completed for the patient 06/20/2025 2:54 PM ESTdocumented as of this encounter Care Teams Team MemberRelationshipSpecialtyStart [place] [address] [address] PCP - General08/14/20documented as of this encounter
--- OUTSIDE RECORDS SUMMARY | 2025-07-10 16:44 | XMS_ITS | Encounter Summary ---
Author Organization [facility] Address [address] [facility] [place] [address] Care Team Providers Care Stripper Shovel Operator Name Role Phone Suzanne Uriarte MD Primary Care Provider +1- [phone] Encounter Details DateTypeDepartmentCare Team (Latest Contact Info)Yahkirjqfby23/10/2025amboo flowsheet [facility] [address] [employer] [place] [address] Willis Chen DO [address] [facility] [address] [place], [facility]11 Social History Tobacco UseTypesPacks/DayYears UsedDateSmoking Tobacco: Never Assessed Estimated Date of ZknkfjfpLprfhrxlNpf46/02/2026ased on last menstrual period of 11/13/2024Sex and Gender InformationValueDate RecordedSex Assigned at BirthFemale 12/21/2022 8:22 PM EDTLegal CpzZphhig67/15/2023 11:40 PM EDTGender Identity Pbvruv4512/21/2022 8:22 PM EDTSexual MingmgnyytmJmpdqcfp15/05/2023 8:22 PM EDT documented as of this encounter Plan of Treatment DateTypeDepartmentCare Team (Latest Contact Info)Hpglxvczjtw10/05/2026 3:00 PM ESTAncillary Procedure [facility] [address] [employer] [place] [address] 07/23/2025 3:30 PM ESTRoutine [facility] [address] [facility] [address] Willis Chen, DO [address] [facility] [place] [address] documented as of this encounter Goals GoalPatient Goal TypeAssociated ProblemsRecent ProgressPatient-Stated?Author Reminders Care PlanOB RemindersNoOpen Scheduling, Backgrounddocumented as of this encounter Visit Diagnoses Not on filedocumented in this encounter Additional Health Concerns Active ProblemsNoted DateDiagnosed DateOB Nytydetyx55/29/2023 documented as of this encounter Care Teams Team MemberRelationshipSpecialtyStart [place] [address] [place] [address] PCP - GeneralFamily Medicine01/14/23documented as of this encounter
--- OUTSIDE RECORDS SUMMARY | 2025-07-10 16:44 | XMS_ITS | Encounter Summary ---
Author Organization [facility] Address [address] [facility] [place] [address] Care Team Providers Care Flight Operation Coordinator Name Role Phone Suzanne Uriarte MD Primary Care Provider +1- [phone] Encounter Details DateTypeDepartmentCare Team (Latest Contact Info)Tmdskligxsh04/10/2025bstract [facility] [address] [place] [address] Willis Chen DO [address] [facility] [address] [place], [place] [address] Social History Tobacco UseTypesPacks/DayYears UsedDateSmoking Tobacco: Never Assessed Estimated Date of UsygujscYbgbdfgyNar49/02/2026ased on last menstrual period of 11/13/2024Sex and Gender InformationValueDate RecordedSex Assigned at BirthFemale 12/21/2022 8:22 PM EDTLegal AamLiqvzk74/15/2023 11:40 PM EDTGender Identity Qfcjde8212/21/2022 8:22 PM EDTSexual MrsgevwefntEvwsdgcf37/05/2023 8:22 PM EDT documented as of this encounter Plan of Treatment DateTypeDepartmentCare Team (Latest Contact Info)Uvkbpghrkxi78/05/2026 3:00 PM ESTAncillary Procedure [facility] [address] [place] [address] 07/23/2025 3:30 PM ESTRoutine [facility] [address] [facility] [place] [address] Willis Chen, DO [address] [facility] [place] [address] documented as of this encounter Goals GoalPatient Goal TypeAssociated ProblemsRecent ProgressPatient-Stated?Author Reminders Care PlanOB RemindersNoOpen Scheduling, Backgrounddocumented as of this encounter Visit Diagnoses Not on filedocumented in this encounter Additional Health Concerns Active ProblemsNoted DateDiagnosed DateOB Phjijaypp88/29/2023 documented as of this encounter Care Teams Team MemberRelationshipSpecialtyStart [place] [address] [place] [address] PCP - GeneralFamily Medicine01/14/23documented as of this encounter
--- OUTSIDE RECORDS SUMMARY | 2025-07-10 16:44 | XMS_ITS | Encounter Summary ---
Author Organization [facility] Address [address] [facility] [place] [address] Care Team Providers Care Sheetmetal Patternmaker Name Role Phone Koffi Uriarte MD Primary Care Provider +1- [phone] Encounter Details DateTypeDepartmentCare Team (Latest Contact Info)Jafmbheufow84/18/2025linisync Result Encounter [facility] External Department Unsolicited Lisa Chen DO [address] [place], [place] [id number] Social History Tobacco UseTypesPacks/DayYears UsedDateSmoking Tobacco: Never Assessed Estimated Date of UcbqwwrxLmrbuhrpNvg43/02/2026Based on last menstrual period of 11/13/2024Sex and Gender InformationValueDate RecordedSex Assigned at BirthFemale 12/21/2022 8:22 PM EDTLegal ZcaTilsni43/15/2023 11:40 PM EDTGender Identity Ufoioz6412/21/2022 8:22 PM EDTSexual EzhilgsytvhOxcmehqj61/05/2023 8:22 PM EDT documented as of this encounter Plan of Treatment DateTypeDepartmentCare Team (Latest Contact Info)Mgbvenlsbuv82/05/2026 3:00 PM ESTAncillary Procedure [facility] [address] [place] [address] 07/23/2025 3:30 PM ESTRoutine [facility] [place] [facility] [address] [place] [address] Lisa Chen, DO [address] [facility] [place] [address] documented as of this encounter Goals GoalPatient Goal TypeAssociated ProblemsRecent ProgressPatient-Stated?Author Reminders Care PlanOB RemindersNoOpen Scheduling, Backgrounddocumented as of this encounter Procedures Procedure NamePriorityDate/TimeAssociated DiagnosisCommentsUS OB BPP W NON-SNTFEG5307/05/2025 10:00 AM EST documented in this encounter Results * US OB BPP W NON-STRESS (07/05/2025 10:00 AM EST)Anatomical Region LateralityModalityOtherSpecimen (Source)Anatomical Location / Laterality Collection Method / VolumeCollection TimeReceived Time07/05/2025 10:00 AM EST Narrative 07/05/2025 10:02 AM EST [facility] ?[address] ? [place] [address] ? Ultrasound Report ? Signed ? Patient: PRINCESS HUNTER A ?MR#: [id number] ?? : 1995 ?Acct:[id number] ?? Age/Sex: 29 / F ?ADM Date: 07/04/25 ?? Loc: US ? Attending Dr: Lisa Chen D.O. ? Ordering Physician: Lisa Chen D.O. ?? Date of Service: 07/04/25 ?? Procedure(s): US OB BPP w non-stress ?? Accession Number(s): [id number] ? cc: Lisa Chen D.O.; KOFFI URIARTE M.D. ? [facility] ? [address] ? [place] [address] ? Patient Name: ?? PIRNCESS HUNTER ? MRN: [id number] ? date: 1995 ?Sex: F ?? Assigned Patient Location: [facility] ?? Current Patient Location: US ?? Accession/Order Number: [id number] ?? Exam Date: 07/04/2025 ??18:49 ?Report Date: [...] Dictation Location: RADIO-PC-30 ? Electronically authenticated by: [id number] ??Y ?? Date: 07/05/2025 ??10:00 ? Dictated By: ?yCndi Pisano M.D. ? Signed By: ?12/18/25 1002 ? DD/ 1000 ? TD/TT: ? Tube Coater: Procedure Note Radiology, Radiologist, - 07/05/2025 [place] [address] Ultrasound Report Signed Patient: PRINCESS HUNTER AMR#: [id number] : 1995Acct:[id number] Age/Sex: 29 / FADM Date: 07/04/25 Loc: US Attending Dr: Lisa Chen D.O. Ordering Physician: Lisa Chen D.O. Date of Service: 07/04/25 Procedure(s): US OB BPP w non-stress Accession Number(s): [id number] cc: Lisa Chen D.O.; KOFFI URIARTE M.D. The [address] [address] Patient Name: PRINCESS HUNTER MRN: [id number] date: 1995 Sex: F Assigned Patient Location: [facility] Current Patient Location: [place] Accession/Order Number: [id number] Exam Date: 07/04/2025 18:49 Report Date: 07/05/2025 [...] Pisano M.D. 07/05/2025 10:00 AM Dictation Location: [facility]Really SimpleSW[facility] HILLgeolad Electronically authenticated by: [id number] Y Date: 0:00 Dictated By: Cyndi Pisano M.D. Signed By:07/05/25 1002 DD/ 1000 TD/TT: Tube Coater: Authorizing ProviderResult TypeResult StatusCorechristina Chen DOCLINISYNC IMAGINGFinal Result documented in this encounter Visit Diagnoses Not on filedocumented in this encounter Additional Health Concerns Active ProblemsNoted DateDiagnosed DateOB Eueqzasic40/29/2023 documented as of this encounter Care Teams Team MemberRelationshipSpecialtyStart [place] [address] [address] PCP - GeneralFamily Medicine01/14/23documented as of this encounter
--- OUTSIDE RECORDS SUMMARY | 2025-07-10 16:44 | XMS_ITS | Encounter Summary ---
Author Organization [facility] Address [address] [place] [address] Care Team Providers Care Hospital Sales Representative Name Role Phone Suzanne Uriarte MD Primary Care Provider +1- [phone] Encounter Details DateTypeDepartmentCare Team (Latest Contact Info)Phwhhcnowsk65/10/2025Telephone [facility] [address] [place] [address] [place] [address] LPN Social History Tobacco UseTypesPacks/DayYears UsedDateSmoking Tobacco: Never Assessed Estimated Date of OtnicgqhAregrzxwZwr03/02/2026Based on last menstrual period of 11/13/2024Sex and Gender InformationValueDate RecordedSex Assigned at BirthFemale 12/21/2022 8:22 PM EDTLegal CdzYmnrue74/15/2023 11:40 PM EDTGender Identity Morleb1412/21/2022 8:22 PM EDTSexual ZkeuolvppjqLatoifvd30/05/2023 8:22 PM EDT documented as of this encounter Miscellaneous Notes * Telephone Encounter - Vee St LPN - 06/27/2025 3:39 PM EST Called patients insurance to discuss mzuv-nv-lcor @ case# [id number] spoke with Kaydenand gave him updated info in regard to Ferritin and Transferrin levels and that patient has been onOral medications for the past month. Will await call back or response in the next 48 hours.--ss 4:17pm Received call from Latonia Cwrp-zv-Ktpj Reviewer and was informed that PA is now APPROVED. Ref#[id number]. 4:18pm Called Mihaela at [facility] Scheduling and notified her that Venofer was now APPROVED. 4:23pm Called patient and informed her that Venofer was Approved and to expect a call from [facility] to setup infusions. PVU--Vee Rai LPN documented in this encounter Plan of Treatment DateTypeDepartmentCare Team (Latest Contact Info)Fzchgblhtwr92/05/2026 3:00 PM ESTAncillary Procedure [facility] Zachariah L[facility]TON [address] [facility] [address] 07/23/2025 3:30 PM ESTRoutine [facility] [address] [facility] [address] Willis Chen DO [address] [facility] [place] [address] documented as of this encounter Goals GoalPatient Goal TypeAssociated ProblemsRecent ProgressPatient-Stated?Author Reminders Care PlanOB RemindersNoOpen Scheduling, Backgrounddocumented as of this encounter Visit Diagnoses Not on filedocumented in this encounter Additional Health Concerns Active ProblemsNoted DateDiagnosed DateOB Enfsstyni06/29/2023 documented as of this encounter Care Teams Team MemberRelationshipSpecialtyStart [place] [address] [place] [address] PCP - GeneralFamily Medicine01/14/23documented as of this encounter
--- OUTSIDE RECORDS SUMMARY | 2025-07-10 16:44 | XMS_ITS | Encounter Summary ---
Author Organization [facility] Address [address] [facility] [place] [address] Care Team Providers Care Scanning Supervisor Name Role Phone Suzanne Uriarte MD Primary Care Provider +1- [phone] Encounter Details DateTypeDepartmentCare Team (Latest Contact Info)Fvdqogrvilv80/22/2025amboo flowsheet [facility] Zachariah LAYTON [address] [facility] [place] [address] Roula Grullon PA [address] [facility] [address] [place], [place] [phone] Social History Tobacco UseTypesPacks/DayYears UsedDateSmoking Tobacco: Never Assessed Estimated Date of EvvnrmdkYbkyepzxEmo20/02/2026ased on last menstrual period of 11/13/2024Sex and Gender InformationValueDate RecordedSex Assigned at BirthFemale 12/21/2022 8:22 PM EDTLegal OryUtguxa57/15/2023 11:40 PM EDTGender Identity Wfovcv8812/21/2022 8:22 PM EDTSexual KdcfmbxiaziEtmffala91/05/2023 8:22 PM EDT documented as of this encounter Plan of Treatment DateTypeDepartmentCare Team (Latest Contact Info)Qtwpdthgasa41/05/2026 3:00 PM ESTAncillary Procedure [facility] Zachariah LAYTON [address] [facility] [place] [address] 07/23/2025 3:30 PM ESTRoutine [facility] Zachariah LAYTON [address] [facility] [place] [address] Willis Chen, DO [address] [facility] [place] [address] documented as of this encounter Goals GoalPatient Goal TypeAssociated ProblemsRecent ProgressPatient-Stated?Author Reminders Care PlanOB RemindersNoOpen Scheduling, Backgrounddocumented as of this encounter Visit Diagnoses Not on filedocumented in this encounter Additional Health Concerns Active ProblemsNoted DateDiagnosed DateOB Hsrrkqope24/29/2023 documented as of this encounter Care Teams Team MemberRelationshipSpecialtyStart [place] [address] [place] [address] PCP - GeneralFamily Medicine01/14/23documented as of this encounter
--- OUTSIDE RECORDS SUMMARY | 2025-07-10 16:44 | XMS_ITS | Clinical Summary ---
Author Organization [facility] Address [address] [place] [address] Phone Care Team Providers Care Production Boring Machine Operator Name Role Phone Suzanne Uriarte [...] 1115108/28/2024Discontinued(Cost of medication) Active Problems ProblemNoted DateDiagnosed SgkvHnimilu53/25/2025 Assessment & Plan (09/14/2024 1:31 PM EST): We talked about healthy habits and sleep hygiene Orders: CBC; Future TSH with reflex to Free T4 if abnormal; Future Vitamin B12; Future Wsqrdgj2110/02/2022enign essential jubmlflvfmia05/17/2023 Assessment & Plan (09/14/2024 1:31 PM EST): [...] Primary Care - PCP - Established; Future Ckvwaba3810/02/2022 Assessment & Plan (09/14/2024 1:31 PM EST): Good control. Follow up with neuro. Continue meds Vitamin B12 ttcrkttqci96/17/2023 Assessment & Plan (09/14/2024 1:31 PM EST): Resolved Problems ProblemNoted DateDiagnosed DateResolved DateClass 1 obesity with body mass index (BMI) of 32.0 to 32.9 in adult/2352Wlhqtidciyff88/29/2023 09/12/2024bnormal weight gainllergic tvdkicvy82/17/2023 05/03/2024acterial pktyobxpa04ilateral chronic otitis media hest painhronic pshqzcestpkp05/17/2023 05/03/2024hronic mmuuuaucz65/onductive hearing loss, zucusqqlb13Elevated BP without diagnosis of hypertension Globus haegswiao13Hair loss10/02/2022 05/03/20246110Ydemmqmx72Tonsil stoneVaginal ywxjazpyj16 Encounters DateTypeDepartmentCare JvqdIyaenapmoby63/12/2025Scanned Document [facility] [address] [place] [address] Suzanne Uriarte MD 06/27/2025Orders Only [address] Chiu [address] [facility] [place] [address] Nedra Deleon MD Seizure (Multi) (Primary Dx)06/27/2025Scanned Document [address] Chiu [address] [facility] [place] [address] Nedra Deleon MD 06/25/2025Documentation [address] [place] [address] Laila Jin, INTERNAL CONTROL MANAGER-BAKERY ASSOCIATE 06/25/2025Orders Only [address] [place] [address] Nedra Deleon MD Unspecified convulsions (Multi)06/25/2025Orders Only [address] [place] [address] Emili Rosado MD 06/20/2025 3:[address] Chiu 2 [facility] [address] [place] [address] Laila Jin, INTERNAL CONTROL MANAGER-BAKERY ASSOCIATE Seizure (Multi) (Primary Dx) Discharge Disposition: Home06/20/20258585Qobkrz34/01/2025Orders Only [facility] [address] [place] [address] Dr Chiu 2 [facility] [address] [place] [address] Mei Soto MA Seizure (Multi)06/13/2025Telephone [facility] [address] [place] [address] Dr [address] 2 [facility] [address] [place] [address] Mei Soto MA Medical Advice/Vdzapaiy73/27/2025Orders Only [facility] [address] [place] [address] Dr [address]iu 2 [facility] [address] [place] [address] Nedra Deleon MD Unspecified convulsions (Multi)04/18/2025Telephone [facility] [address] [place] [address] Kim Fuentes MA 04/17/2025Refill [facility] [address] [place] [address] Suzanne Uriarte MD Benign essential /23/2025Scanned Document [facility] Primary [facility] [address] [place] [address] Suzanne Uriarte MD from Last 3 Months Immunizations ImmunizationAdministration DatesNext XvpMJQ1704/16/1994,02/12/1994,1993DTaP, Ceqisypltly74/25/1999,01/07/1995Flu vaccine (IIV4), preservative free *Check age/dose*04/22/2023,04/21/2022,04/18/2021,05/06/2017Flu vaccine, quadrivalent, no egg protein, age 6 month or greater (FLUCELVAX)05/09/2019Hepatitis B vaccine, 19 yrs and under (RECOMBIVAX, ENGERIX)06/18/1994,01/08/1994,1993Hepatitis B vaccine, adult *Check Product/Dose*11/01/2023HiB PRP-OMP conjugate vaccine, pediatric (PEDVAXHIB)10/22/1994,04/16/1994,02/12/1994,1993Hib (HbOC) 03/12/1999Influenza, injectable, cflsranirufe71/11/2018MMR vaccine, subcutaneous (MMR II)03/12/1999,10/22/1994Meningococcal ACWY-D (Menactra) 4-valent conjugate dpgxvlg1902/25/2007OPV03/12/1999,04/16/1994,02/12/1994,1993PPD Test 11/30/2014,12/15/2013Pneumococcal polysaccharide vaccine, 23-valent, age 2 [...] 0.6 oz pure alcohol)SociallyPHQ-2AnswerDate RecordedPatient Health Questionnaire-2 Kuogc082/5AUDIT-CAnswerDate RecordedQ1: How often do you have a drink containing alcohol?Never06/20/2025Q2: How many drinks containing alcohol do you have on a typical day when you are drinking?Patient does not drink06/20/2025Q3: How often do you have six or more drinks on one occasion?Never06/20/2025 CommentsNoSex and Gender InformationValueDate RecordedSex Assigned at BirthNot on fileLegal SniTpepkm90/25/2022 10:33 PM ESTGender IdentityNot on fileSexual OrientationNot on file Last Filed Vital Signs Vital SignReadingTime TakenCommentsBlood Boqqolav410/9609/12/2024 12:28 PM EST Xrjuf189809/12/2024 12:28 PM HMXBcwrexatipy91.3 ??C (97.3 ??F)09/12/2024 12:28 PM ESTRespiratory Jdtj043907/31/2022 10:54 AM ESTOxygen Vfvbuyqbag285%12/24/2021 11:32 AM EDTInhaled Oxygen Concentration--Qxcfpy26.1 kg (183 lb 4 oz)09/12/2024 12:28 PM HYQEpmkkd774.3 cm (5' 9 )09/12/2024 12:28 PM ESTBody Mass Index27.06 09/12/2024 12:28 PM EST Plan of Treatment DateTypeDepartmentCare Team (Latest Contact Info)Hldyytvgnhu93/18/2026 2:00 PM EDTOffice Visit [facility] [address] [place] [address] [address] Chiu [address] [phone] Laila Jin, INTERNAL CONTROL MANAGER-BAKERY ASSOCIATE [address] [place] [address] Health MaintenanceDue DateLast DoneCommentsHIV Yzpcmibdv24/16/1994Hepatitis C Sqxuamryp02/16/2012HPV/Wblfyy8510/01/2014HPV Vaccines (1 - 3-dose standard series) 2020Yearly Adult Throtiuj16/27/868633/, 07/31/2022, 07/31/2022, Additional history existsCOVID-19 Vaccine ( season)2025 05/27/2023Influenza Vaccine (#1)/11/2022, 04/21/2022, 04/18/2021, Additional history existsCervical Cancer Kllpyjsga82/20/2028Pap Smear03/07/2028 03/07/2025, 03/10/2023, 03/09/2023, Additional history existsLipid Panel DTaP/Tdap/Td Vaccines (9 - Td or Tdap), 02/16/2018, 03/02/2008, Additional history existsZoster Vaccines (1 of 2) 10/02/2043HIB QjstojavAzjrvzueb05/25/1999, 10/22/1994, 04/16/1994, Additional history existsIPV BlbwxagcXhwlbylfa17/25/1999, 10/22/1994, 04/16/1994, Additional history existsMMR OccurpvsZfwuehawu98/25/1999, 10/22/1994 Meningococcal VaccineAged Out02/25/2007No longer eligible based on patient's age to complete this topicPneumococcal Vaccine: Pediatrics and At-Risk Adult PatientsAged Out01/14/2016No longer eligible based on patient's age to complete this topicHepatitis B MvdoieszTsldioggq43/15/2024, 06/18/1994, 01/08/1994, Additional history existsHepatitis A VaccinesAged OutNo longer eligible based on patient's age to complete this topicRotavirus VaccinesAged OutNo longer eligible based on patient's age to complete this topic Procedures Procedure NamePriorityDate/TimeAssociated DiagnosisCommentsLAMOTRIGINERoutine 06/25/2025 11:10 AM ESTLIPID QOKVHHhzgdps07/25/2025 1:43 PM EST Well adult health check from Last 3 Months or Most Recently Relevant to Health Maintenance Results * Lamotrigine (06/25/2025 11:10 AM EST)Specimen (Source)Anatomical Location / LateralityCollection Method / VolumeCollection TimeReceived TimeBloodVenous blood specimen / Unknown Narrative Authorizing ProviderResult TypeResult StatusHistorical Provider CARROL BLOOD ORDERABLESFinal Result * Lipid Panel (09/12/2024 1:43 PM EST)ComponentValueRef RangeTest MethodAnalysis TimePerformed AtPathologist SignatureCHOLESTEROL, XZAYJ668<200 mg/dLQuest [facility] HospitalHDL IGAGXYWDTGP92> OR = 50 mg/dLQuest [facility] Medicine Uniontown HospitalTRIGLYCERIDES103<150 mg/dLQuest [facility] HospitalEvgnolvjoepf-BfwqlsuscvRMC-QSRCSOKUUVQ48yc/dL (calc)[facility]portComment: Reference range: <100 Desirable range <100 mg/dL for primary prevention; <70 mg/dL for patients with CHD or diabetic patients with > or = 2 CHD risk factors. LDL-C is now calculated using the Dean calculation, which is a validated novel method providing better accuracy than the Friedewald equation in the estimation of LDL-C. Tres RODRIGEZ et al. STEPHANIE. 2013;310(19): 0481-6519 (http://education.Active DSP/faq/GAS297) CHOL/HDLC RATIO3.2<5.0 (calc)[facility] McKeesportNON HDL IHFYHDCVJPU701<130 mg/dL (calc)[facility] Comment: For patients with diabetes plus 1 major ASCVD risk factor, treating to a non-HDL-C goal of <100 mg/dL (LDL-C of <70 mg/dL) is considered a therapeutic option. Specimen (Source)Anatomical Location / LateralityCollection Method / Volume Collection TimeReceived TimeBloodVenous blood specimen / Pwfmrrt3909/12/2024 1:43 PM EST09/12/2024 1:44 PM EST Narrative [facility] - 09/13/2024 6:42 AM EST FASTING:YES FASTING: YES Authorizing ProviderResult TypeResult StatusMonminesh BRANHAM BLOOD ORDERABLESFinal ResultPerforming OrganizationAddressCity/State/ZIP CodePhone Number [facility] [address] [facility], [address] [place] [phone] from Last 3 Months or Most Recently Relevant to Health Maintenance Insurance MemberSubscriberPlan / Payer (Effective 2025-Present)Name:Kavya Guerrero Relation to Subscriber:SelfName:Kavya Guerrero Payer ID:[id number] (NAIC) Type:Not on file Address: [address] Care Teams Team MemberRelationshipSpecialtyStart [place] [address] [address] [place] [address] PCP - General08/14/20
--- OUTSIDE RECORDS SUMMARY | 2025-07-10 16:44 | XMS_ITS | Encounter Summary ---
Author Organization [facility] Address [address] [facility] [place] [address] Care Team Providers Care Dry Molder Name Role Phone Suzanne Uriarte MD Primary Care Provider +1- [phone] Encounter Details DateTypeDepartmentCare Team (Latest Contact Info)Vygegqxrkya63/09/2025bstract [facility] [place] LAYTON [address] [place] [address] Willis Chen DO [address] [facility] [address] [place] [place], [place] [address] Social History Tobacco UseTypesPacks/DayYears UsedDateSmoking Tobacco: Never Assessed Estimated Date of LwownqeyMwmjijvwGfh36/02/2026ased on last menstrual period of 11/13/2024Sex and Gender InformationValueDate RecordedSex Assigned at BirthFemale 12/21/2022 8:22 PM EDTLegal DvlKumzfz64/15/2023 11:40 PM EDTGender Identity Tjcjgk6812/21/2022 8:22 PM EDTSexual DerwsplzocnWnparahg01/05/2023 8:22 PM EDT documented as of this encounter Plan of Treatment DateTypeDepartmentCare Team (Latest Contact Info)Hsjppyhkonu79/05/2026 3:00 PM ESTAncillary Procedure [facility] [place] LAYTON [address] [place] [address] 07/23/2025 3:30 PM ESTRoutine [facility] [place] LAYTON [address] [facility] [place] [address] Willis Chen, DO [address] [facility] [place] [address] documented as of this encounter Goals GoalPatient Goal TypeAssociated ProblemsRecent ProgressPatient-Stated?Author Reminders Care PlanOB RemindersNoOpen Scheduling, Backgrounddocumented as of this encounter Visit Diagnoses Not on filedocumented in this encounter Additional Health Concerns Active ProblemsNoted DateDiagnosed DateOB Dxbhmqhqn79/29/2023 documented as of this encounter Care Teams Team MemberRelationshipSpecialtyStart [place] [address] [place] [address] PCP - GeneralFamily Medicine01/14/23documented as of this encounter
--- OUTSIDE RECORDS SUMMARY | 2025-07-10 16:44 | XMS_ITS | Encounter Summary ---
Author Organization [facility] Address [address] [place] [address] Phone Care Team Providers Care Business Support Professional Name Role Phone Suzanne Uriarte MD Primary Care Provider + Encounter Details DateTypeDepartmentCare Team (Latest Contact Info)Dmaanqknhha67/01/2025Orders Only [facility] [address] [place] [address] Dr Chiu [address] [phone] Mei Soto MA Seizure (Multi) Social History Tobacco UseTypesPacks/DayYears UsedDateSmoking Tobacco: NeverPassive Smoke Exposure: NeverSmokeless Tobacco: CurrentAlcohol UseStandard Drinks/WeekComments Not Currently0 (1 standard drink = 0.6 oz pure alcohol)SociallyPHQ-2AnswerDate RecordedPatient Health Questionnaire-2 Gsbzw43808/21/2024UDIT-CAnswerDate RecordedQ1: How often do you have a [...] Plan of Treatment DateTypeDepartmentCare Team (Latest Contact Info)Jlpjlnylple62/18/2026 2:00 PM EDTOffice Visit [facility] [address] [place] [address] Dr Chiu [address] [phone] Laila Jin, METAL ORGAN PIPE MAKER-ENVIRONMENTAL PROPERTY ASSESSOR [address] [place] [address] documented as of this encounter Visit Diagnoses Diagnosis Seizure (Multi) Other convulsions documented in this encounter Additional Health Concerns AssessmentNoted TimeA fall risk assessment has been completed for the patient 05/03/2024 9:18 AM EDTdocumented as of this encounter Care Teams Team MemberRelationshipSpecialtyStart [place] [address] [place] [address] PCP - General08/14/20documented as of this encounter
--- OUTSIDE RECORDS SUMMARY | 2025-07-10 16:44 | XMS_ITS | Encounter Summary ---
Author Organization [facility] Address [address] [facility] [place] [address] Care Team Providers Care Observer Helper Name Role Phone Suzanne Uriarte MD Primary Care Provider +1- [phone] Encounter Details DateTypeDepartmentCare Team (Latest Contact Info)Hpycildiyte11/23/2025bstract [facility] [address] [place] [address] Willis Chen DO [address] [facility] [address] [place], [place] [id number] Social History Tobacco UseTypesPacks/DayYears UsedDateSmoking Tobacco: Never Assessed Estimated Date of QjjgacndAkinuboeMju86/02/2026ased on last menstrual period of 11/13/2024Sex and Gender InformationValueDate RecordedSex Assigned at BirthFemale 12/21/2022 8:22 PM EDTLegal TzkLeyxpc25/15/2023 11:40 PM EDTGender Identity Gndsoy3712/21/2022 8:22 PM EDTSexual EpcwhpqugieXjvbbnee92/05/2023 8:22 PM EDT documented as of this encounter Plan of Treatment DateTypeDepartmentCare Team (Latest Contact Info)Zywthsqzkez58/05/2026 3:00 PM ESTAncillary Procedure [facility] [address] [place] [address] 07/23/2025 3:30 PM ESTRoutine [facility]AY[facility] [address] [facility] [place] [address] Willis Chen, DO [address] [facility] [place] [address] documented as of this encounter Goals GoalPatient Goal TypeAssociated ProblemsRecent ProgressPatient-Stated?Author Reminders Care PlanOB RemindersNoOpen Scheduling, Backgrounddocumented as of this encounter Visit Diagnoses Not on filedocumented in this encounter Additional Health Concerns Active ProblemsNoted DateDiagnosed DateOB Cmwvkfhbs78/29/2023 documented as of this encounter Care Teams Team MemberRelationshipSpecialtyStart [place] [address] [place] [address] PCP - GeneralFamily Medicine01/14/23documented as of this encounter
--- OUTSIDE RECORDS SUMMARY | 2025-07-10 16:44 | XMS_ITS | Encounter Summary ---
Author Organization [facility] Address [address] [facility] [place] [address] Care Team Providers Care Sales Manager Name Role Phone Suzanne Uriarte MD Primary Care Provider +1- [phone] Encounter Details DateTypeDepartmentCare Team (Latest Contact Info)Pbrzxlxlxil41/11/2025bstract [facility] [address] [place] [address] Willis Chen DO [address] [facility] [address] [place], [place] [id number] Social History Tobacco UseTypesPacks/DayYears UsedDateSmoking Tobacco: Never Assessed Estimated Date of SxjhmjymLtkmzaqrNnm73/02/2026ased on last menstrual period of 11/13/2024Sex and Gender InformationValueDate RecordedSex Assigned at BirthFemale 12/21/2022 8:22 PM EDTLegal NraIwjais63/15/2023 11:40 PM EDTGender Identity Dngjrs1412/21/2022 8:22 PM EDTSexual XmsbikhhplqAgzsmvof64/05/2023 8:22 PM EDT documented as of this encounter Plan of Treatment DateTypeDepartmentCare Team (Latest Contact Info)Omycyfuklxk57/05/2026 3:00 PM ESTAncillary Procedure [facility] [address] [place] [address] 07/23/2025 3:30 PM ESTRoutine [facility] LAYTON [address] [facility] [place] [address] Willis Chen, DO [address] [facility] [place] [address] documented as of this encounter Goals GoalPatient Goal TypeAssociated ProblemsRecent ProgressPatient-Stated?Author Reminders Care PlanOB RemindersNoOpen Scheduling, Backgrounddocumented as of this encounter Visit Diagnoses Not on filedocumented in this encounter Additional Health Concerns Active ProblemsNoted DateDiagnosed DateOB Hteiujlcm93/29/2023 documented as of this encounter Care Teams Team MemberRelationshipSpecialtyStart [place] [address] [place] [address] PCP - GeneralFamily Medicine01/14/23documented as of this encounter
--- OUTSIDE RECORDS SUMMARY | 2025-07-10 16:44 | XMS_ITS | Encounter Summary ---
Author Organization [facility] Address [address] [place] [address] Phone Care Team Providers Care Director Supply Name Role Phone Suzanne Uriarte MD Primary Care Provider + Encounter Details DateTypeDepartmentCare Team (Latest Contact Info)Fsmwdgwopkb95/12/2025Scanned Document [facility] Primary Care [address] [phone] [place] [address] [place] [address] Social History Tobacco UseTypesPacks/DayYears UsedDateSmoking Tobacco: NeverPassive Smoke Exposure: NeverSmokeless Tobacco: CurrentAlcohol UseStandard Drinks/WeekComments Not Currently0 (1 standard drink = 0.6 oz pure alcohol)SociallyPHQ-2AnswerDate RecordedPatient Health Questionnaire-2 Pewfd62408/21/2024UDIT-CAnswerDate RecordedQ1: How often do you have a [...] Plan of Treatment DateTypeDepartmentCare Team (Latest Contact Info)Ibqguwdiwnw54/18/2026 2:00 PM EDTOffice Visit [address] [place] [address] Laila Jin, AIR COMPRESSOR MECHANIC-LANDSCAPE ENGINEER [address] [place] [address] documented as of this encounter Visit Diagnoses Not on filedocumented in this encounter Additional Health Concerns AssessmentNoted TimeA fall risk assessment has been completed for the patient 06/20/2025 2:54 PM ESTdocumented as of this encounter Care Teams Team MemberRelationshipSpecialtyStart [place] [address] [address] PCP - General08/14/20documented as of this encounter
--- OUTSIDE RECORDS SUMMARY | 2025-07-10 16:44 | XMS_ITS | Encounter Summary ---
Author Organization [facility] Address [address] [facility] [place] [address] Care Team Providers Care Configuration Consultant Name Role Phone Suzanne Uriarte MD Primary Care Provider +1- [phone] Encounter Details DateTypeDepartmentCare Team (Latest Contact Info)Zackeozunit70/15/2025Travel Social History Tobacco UseTypesPacks/DayYears UsedDateSmoking Tobacco: Never Assessed Estimated Date of NhyqzlhzNorzxtwhXta21/02/2026ased on last menstrual period of 11/13/2024Sex and Gender InformationValueDate RecordedSex Assigned at BirthFemale 12/21/2022 8:22 PM EDTLegal YpiRtpgoq15/15/2023 11:40 PM EDTGender Identity Hirfuw1712/21/2022 8:22 PM EDTSexual OztscbeohwbZwdsyqvj80/05/2023 8:22 PM EDT documented as of this encounter Plan of Treatment DateTypeDepartmentCare Team (Latest Contact Info)Obrtqcwwwxc93/05/2026 3:00 PM ESTAncillary Procedure JOSY LAYTON [address] [place] [address] 07/23/2025 3:30 PM ESTRoutine JOSY LAYTON [address] [place] [address] Willis Chen DO [address] [facility] [address] [place], [facility] documented as of this encounter Goals GoalPatient Goal TypeAssociated ProblemsRecent ProgressPatient-Stated?Author Reminders Care PlanOB RemindersNoOpen Scheduling, Backgrounddocumented as of this encounter Visit Diagnoses Not on filedocumented in this encounter Additional Health Concerns Active ProblemsNoted DateDiagnosed DateOB Snouovcvk75/29/2023 documented as of this encounter Care Teams Team MemberRelationshipSpecialtyStart [place] [address] [place], [place] [id number] PCP - GeneralFamily Medicine01/14/23documented as of this encounter
[2025-07-10 16:51] VITALS: BP 97/59; PULSE 75
--- NOTE | 2025-07-10 17:16 | US_ITS ---
[facility] [place] [id number] Patient Name: PRINCESS HUNTER MRN: [facility]:[id number] date: 1995 Sex: F Assigned Patient Location: [facility] Current Patient Location: Accession/Order Number: [id number] Exam Date: 07/10/2025 17:18 Report Date: 07/11/2025 09:06 At the request of: LISA ZIMMERMAN DO Procedure: US OB BPP w non-stress BIOPHYSICAL PROFILE: CLINICAL INFORMATION: Hypertension, unspecified TYPE I1O COMPARISON: 07/04/2025 There is a single live intrauterine gestation in cephalic presentation. The reported gestational age is 34 weeks 1 day. The heart rate measures 123 beats per minute. FINDINGS: TONE: 1 or more episodes of activity extension and flexion of extremity or opening and closing of the hand [Y] 2/2 GROSS BODY MOVEMENTS: 3 or more discrete body or limb movements [Y] 2/2 BREATHING MOVEMENTS: 1 or more episodes of breathing lasting at least 30 seconds [Y] 2/2 LAURA: A single deepest vertical pocket of amniotic fluid greater than 2 cm [Y] 2/2 LAURA: 13.9 cm Total score: 8/8 US/US OB BPP w non-stress IMPRESSION: NORMAL BIOPHYSICAL PROFILE Impression dictated by: Cyndi Pisano M.D. 07/11/2025 9:06 AM Dictation Location: [place] [address] Electronically authenticated by: [id number] Y Date: 07/11/2025 09:06
== END 2025-07-10 17:35 | disposition home or self-care (01) ==
LOC: US 16:41 → FBC 16:45
PROVIDERS: PCP Family Medicine; Visit Provider Obstetrics & Gynecology
DX: O16.3 Unspecified maternal hypertension, third trimester (principal); Z3A.34 34 weeks gestation of pregnancy
CPT/HCPCS: 76818

== ENCOUNTER 2025-07-14 10:46 | Outpatient (OUT) | payer BC, SELFPAY ==
--- OUTSIDE RECORDS SUMMARY | 2025-07-09 16:00 | XMS_ITS | Encounter Summary ---
Author Organization [facility] Address [address] [place] [address] Care Team Providers Care Records Supervisor Name Role Phone Suzanne Uriarte MD Primary Care Provider +1- [phone] Reason for Visit * ReasonCommentsRoutine Visit Encounter Details DateTypeDepartmentCare Team (Latest Contact Info)Ybtietloiis66/22/2025 4:00 PM ESTRoutine [facility] [address] [place] [address] Roula Grullon PA [address] [place] [address] 34 weeks gestation of ([facility]); Third trimester ([facility]); Seizure (HCC); Hypertension, unspecified type; Antepartum anemia ([facility]); SGA (small for gestational age) ([facility]) Social History Tobacco UseTypesPacks/DayYears UsedDateSmoking Tobacco: Never Assessed Estimated Date of IodtmthvZmjclzbtZvz01/02/2026Based on last menstrual period of 11/13/2024Sex and Gender InformationValueDate RecordedSex Assigned at BirthFemale 12/21/2022 8:22 PM EDTLegal WiiUchich33/15/2023 11:40 PM EDTGender Identity Cnfhwj9712/21/2022 8:22 PM EDTSexual GjdnmojnemyTflxthie56/05/2023 8:22 PM EDT documented as of this encounter Last Filed Vital Signs Vital SignReadingTime TakenCommentsBlood Cyhvkbhd996/6012 4:05 PM EST Pulse--Temperature--Respiratory Rate--Oxygen Saturation--Inhaled Oxygen Concentration--Eecbuj30.2 kg (201 lb)07/09/2025 4:05 PM ESTHeight--Body Mass [...] Date Noted Hypertension 01/14/2023 Seizure ([facility]) 07/09/2021 Breech presentation, no version ([facility]) 07/29/2023 Resolved Ambulatory Problems Diagnosis Date Noted [...] nursing note reviewed. Exam conducted with a court stenographer present. Vitals: Estimated body mass index is 29.68 kg/m?? as calculated from the following: Height as of 11/16/22: 5' 9 . Weight as of this encounter: 201 lb. BP: 110/60 Patient's last menstrual period was 11/13/2024. Assessment/Plan ICD-10-CM 1. 34 weeks gestation of ([facility]) Z3A.34 Urine culture POCT urinalysis dipstick manually resulted 2. Third trimester ([facility]) Z34.93 Urine culture POCT urinalysis dipstick manually resulted 3. Seizure ([facility]) R56.9 4. Hypertension, unspecified type I10 5. Antepartum anemia ([facility]) O99.019 6. SGA (small for gestational age) ([facility]) P05.10 Assessment/Plan Return OB: Patient presents today [...] Plan of Treatment DateTypeDepartmentCare Team (Latest Contact Info)Xrxaqcnauaj79/05/2026 3:00 PM ESTAncillary Procedure [facility] [address] [place] [address] 07/23/2025 3:30 PM ESTRoutine [facility] [address] [place] [address] Willis Chen, [address] [place] [address] NameTypePriorityAssociated DiagnosesOrder ScheduleUrine cultureMicrobiology Routine 34 weeks gestation of ([facility]) Third trimester ([facility]) Ordered: 07/09/2025documented as of this encounter Goals GoalPatient Goal TypeAssociated ProblemsRecent ProgressPatient-Stated?Author Reminders Care PlanOB RemindersNoOpen Scheduling, Backgrounddocumented as of this encounter Procedures Procedure NamePriorityDate/TimeAssociated DiagnosisCommentsPOCT URINALYSIS YDULBJKKOssglyl57/22/2025 4:14 PM EST 34 weeks gestation of ([facility]) Third trimester ([facility]) documented in this encounter Results * POCT [...] ([facility]) SGA (small for gestational age) ([facility]) Lqqki-ucu-tnqkj without mention of malnutrition, unspecified (weight) documented in this encounter Additional Health Concerns Active ProblemsNoted DateDiagnosed DateOB Vonmfnghf04/29/2023 documented as of this encounter Care Teams Team MemberRelationshipSpecialtyStart [place] [address] [place] [address] PCP - GeneralFamily Medicine01/14/23documented as of this encounter
--- OUTSIDE RECORDS SUMMARY | 2025-07-14 10:49 | XMS_ITS | CCD ---
Author Organization [facility] Care Team Providers Care Property Disposal Manager Name Role Phone Uriarte, Koffi A [...] A Unavailable Unavailabl Theo Bryan Unavailable Unavailable Zca Anderson Primary Care Provider [phone] Uriarte, Koffi A Unavailable [phone] Unavailable Unavailable Unavailable Unavailable Unavailable Unavailable Koffi [...] Provider Koffi Uriarte MD Primary Care Provider [phone] NEDRA CALDERON Attending Unavailable KOFFI URIARTE Primary [...] Known Medication Allergies]Propensity to adverse reactions (disorder)[facility] Repository Medications Current Medications MedicationDrug Class(es)DatesSig [...] Day] (9 sources)Progestin, Estrogen, Progestin-containing Intrauterine DeviceStart: 43-76-0266Vewrpoia 100 mcg-20 mcg oral tablet 1 tab(s), Oral, Daily, 3 EA, Refill(s) [facility] #0220 Start Date: 06/05/19 Status: OrderedStart: 95-13-6113vysi 1 tablet by mouth once dailyOrsythia 0.1-20 MG-MCG Oral Tablet TAKE 1 TABLET DAILY. Quantity: 1 Refills: 3 Koffi Uriarte MD Start : 12-Oct-2015 Active 28 Tablet Packtake 0.1-20 tablets by mouth once levonorgestrel-ethinyl estradiol (LUTERA) 0.1-20 MG-MCG per tablet Take 1 tablet by mouth daily. 0 Activelabetalol hydrochloride 200 mg oral tablet (20 sources)beta-Adrenergic BlockerStart: 61-75-2453tvsq 1 tablet by mouth in the morninglabetalol (Normodyne) 200 MG tablet Indications: Secondary hypertension Take 1 tablet (200 mg) by mouth in the morning and 1 tablet (200 mg) before bedtime. 60 tablet 3 04/18/2025 ActiveStart: 09-12-2024 End: 20-16-2891oopv 1 tablet by mouth twice dailylabetalol (Normodyne) 300 mg tablet Indications: Benign essential hypertension Take 1 tablet (300 mg) by mouth 2 times a day. 60 tablet 5 09/12/2024 03/11/2025 ActiveStart: 11-09-2023 End: 93-36-2793qvqf 1 tablet by mouth twice dailylabetalol (Normodyne) 200 MG tablet Indications: Secondary hypertension TAKE 1 TABLET BY MOUTH TWICE A DAY 60 tablet 3 09/06/2024 ActivelamoTRIgine 100 mg oral tablet (20 sources)Mood Stabilizer, Anti-epileptic AgentStart: 40-60-3802vkpr 100 mg by mouth once dailyLamotrigine Active 100 MG PO Daily November 09, 2023 12:00am Start: 19-30-1961wnqc 1 tablet by mouth twice dailylamoTRIgine (LaMICtal) 100 mg tablet Indications: Unspecified convulsions (Multi) TAKE 1 TABLET BY MOUTH TWICE A DAY 60 tablet 11 01/03/2024 ActivelamoTRIgine (LAMICTAL) 25 mg tablet levothyroxine sodium 0.025 mg oral tablet (1 source)l-ThyroxineStart: 12-07-2022 End: 06-64-4385njnk 1 tablet by mouth once daily before mealtimelevothyroxine (Synthroid, Levoxyl) 25 mcg tablet Take 1 tablet (25 mcg) by mouth once daily in the morning. Take before meals. 0 12/07/2022 04/30/2023 Discontinued (Therapy completed)lisinopril 10 mg oral tablet (20 sources)Angiotensin Converting Enzyme InhibitorStart: 05-13-2023 End: 68-68-9353oltf 1 tablet by mouth once dailylisinopril 10 mg tablet Indications: Benign essential hypertension Take 1 tablet (10 mg) by mouth once daily. 90 tablet 3 05/13/2023 05/03/2024 Discontinued (Med List Cleanup)Start: 03-09-2023 End: 53-31-2748uncx 1 tablet by mouth once dailylisinopril 10 mg tablet Indications: Primary hypertension TAKE 1 TABLET BY MOUTH EVERY DAY 30 tablet 6 03/09/2023 04/30/2023 Discontinued (Entered in Error)Start: 87-46-1469nkjy 1 tablet by mouth once dailyLisinopril 10 MG Oral Tablet TAKE 1 TABLET DAILY. Quantity: 90 Refills: 3 Ordered: 02-Jan-2022 Koffi Uriarte MD Start : 14-Oct-2020 ActiveStart: 44-48-9670elgwinbkhk (ZESTRIL, PRINIVIL) 10 mg tablet Take by mouth q 24 HR. 0 10/14/2020 ActiveComment on above:Take by mouth q 24 HR.24 hr metFORMIN hydrochloride 500 mg extended release oral tablet (1 source)BiguanideStart: 11-16-2022 End: 59-15-7352jtgq 1 tablet by mouth once daily at mealtimemetFORMIN XR 500 mg 24 hr tablet Take 1 tablet (500 mg) by mouth once daily in the evening. Take wit h meals. 0 11/16/2022 04/30/2023 Discontinued (Therapy completed)naproxen 500 mg oral tablet (1 source)Nonsteroidal Anti-inflammatory DrugStart: 10-94-6030duny 1 tablet by mouth twice dailyNaprosyn 500 mg Tab 500 mg = 1 tab(s), Oral, BID, # 120 tab(s), Refills(s) 0, [facility]: [id number] Start Date: 06/05/19 Status: Ordered MV-Min-Fe Fum-FA-DHA ( 1 PO) (20 sources) MV-Min-Fe Fum-FA-DHA ( 1 PO) Take by mouth Active promethazine hydrochloride 12.5 mg oral tablet (20 sources)PhenothiazineStart: 08-73-3579ejbx 2 tablets by mouth every six hours [...] for nausea. 30 tablet 1 02/02/2025 ActiveStart: 14-95-3650zeme 2 tablets by mouth every six hours [...] for nausea. 30 tablet 2 02/01/2025 ActiveStart: 37-24-9078bbhn 2 tablets by mouth every six hours [...] 0.9 % injection 3 mL (1 source)Start: 60-96-3953unexku chloride flush 0.9 % injection 3 mL Completed/Discontinued Medications MedicationDrug Class(es)DatesSig (Normalized)Sig (Original)busPIRone hydrochloride 10 mg oral tablet (3 sources)Start: 18-02-6796elwq 1 tablet by mouth three times daily as needed busPIRone HCl - 10 MG Oral Tablet TAKE 1 TABLET 3 times daily PRN Quantity: 60 Refills: 1 Koffi Uriarte MD Start : 28-May-2020 Activegadoteridol (PROHANCE) injection 15 mL (1 source)Start: 05-09-2020 End: 05-10-6998cxmfheajwej (PROHANCE) injection 15 mLmelatonin 10 mg oral tablet (8 sources)Start: 35-86-7065jdzm 1 tablet by mouth at bedtimeMelatonin 10 MG Oral Tablet TAKE 1 TABLET Bedtime Quantity: 30 Refills: 3 Ordered: 25-Apr-2020 Doe Andrade DO Start : 25-Apr-2020 Active Patient requesting compounded melatoninmetroNIDAZOLE 500 mg oral tablet (10 sources)Nitroimidazole AntimicrobialStart: 09-09-2021 End: 24-04-2575yyax 1 tablet by mouth twice dailymetroNIDAZOLE (FLAGYL) 500 mg tablet Indications: Acute vaginitis Take 1 tablet by mouth twice daily. for vaginosis. Do not drink alcohol while taking this medication 14 tablet 0 02/03/2022 ActiveStart: 40-64-9217hftrbYDIDBZCU 0.75 % Vaginal Gel INSERT 1 APPLICATORFUL INTRAVAGINALLY AT BEDTIME NIGHTLY. Quantity: 1 Refills: 0 Ordered: 20-May-2021 Koffi Uriarte MD Start : 20-May-2021 ActiveStart: 06-09-2019 End: 30-46-2250KjvduMzi-Vaginal 0.75% gel with applicator 1 bruce, Vaginal, BID, 70 gram, Refill(s) 0, [facility] Start Date: 06/09/19 Stop Date: 06/14/19 Status: OrderedComment on above:Take 1 tablet by mouth twice daily. for vaginosis. Do not drink alcohol while taking this medicationondansetron 4 mg disintegrating oral tablet (11 sources)Serotonin-3 Receptor AntagonistStart: 01-12-2025 End: 88-03-5252movo 1 tablet by mouth every six hours for nauseaondansetron ODT (Zofran-ODT) 4 MG disintegrating tablet Indications: Nausea and vomiting in ([facility]) Take 1 tablet (4 mg) by mouth every 6 (six) hours if needed for nausea or vomiting 30 tablet 2 01/12/2025 02/11/2025 ExpiredStart: 40-85-2456shkb 4 mg by mouth every eight hoursOndansetron Hcl Active 4 MG PO Every 8 hours November 09, 2023 12:00amStart: 02-10-2023 End: 06-39-0663aixg 2 tablets by mouth twice daily as needed for nausea ondansetron (Zofran) 4 mg tablet Take 2 tablets (8 mg) by mouth 2 times a day as needed for nausea.02/10/2023 05/03/2024 Discontinued (Med List Cleanup)Orsythia 0.1-20 MG-MCG Oral Tablet (3 sources)Start: 97-65-0021rpcg 1 tablet by mouth once dailyOrsythia 0.1-20 MG- MCG Oral Tablet TAKE 1 TABLET DAILY. Quantity: 1 Refills: 3 Ordered: 25-May-2019 Koffi Uriarte MD Start : 12-Oct-2015 Activesertraline 50 mg oral tablet (4 sources)Serotonin Reuptake InhibitorStart: 08-27-2797bdyc 1 tablet by mouth once dailySertraline HCl - 50 MG Oral Tablet TAKE 1 TABLET DAILY. Quantity: 30 Refills: 11 Ordered: 14-Oct-2020 Koffi Uriarte MD Start : 28-May-2020 Gqaqla90 ml sodium chloride 9 mg/ml injection (1 source)Start: 04-18-2020 End: 04-19-20200.9 % sodium chloride bolus Problems Active Problems Problem ClassificationProblemDateDocumented DateEpisodic/ChronicAnxiety disorders (20 sources)Anxiety; Translations: [Anxiety state, unspecified]Onset: 10-02-2022 76-28-8939NdthgcmFywoisnwykshm and procreative management (7 sources)Contraception ; Translations: [Encounter for surveillance of contraceptives, unspecified]Onset: 709839-08-8463LfnlglxkLhnphisr; convulsions (1 source)Idiopathic generalized epilepsy; Translations: [Nonintractable generalized idiopathic epilepsy without status epilepticus (HCC)]Chronic Essential hypertension (20 sources)Benign essential hypertension; Translations: [Benign essential hypertension]Onset: 10-02-2022 Resolved: 962236-45-7594NeaqvonSllwvcpejf during ; abruptio placenta; placenta previa (2 sources)Antepartum hemorrhage; Translations: [Hemorrhage in early , unspecified]Onset: 11-57-8004SkgexdeoZmpxjoobtmxgc and screening for infectious disease (4 sources)Encounter for screening for infections with a predominantly sexual mode of transmission; Translations: [Exposure to sexually transmissible disorder]Onset: 550078-47-8441DfzdccddOfqywjsmb disorders (3 sources)Missed period; Translations: [Irregular menstruation, unspecified] 64-70-3136WmjuszyXdgwrj and vomiting (2 sources)Nausea and vomiting; Translations: [Nausea with vomiting, unspecified]59-02-5673EtideslcRnljvyvobgo deficiencies (3 sources)Vitamin D deficiency; Translations: [Vitamin D deficiency, unspecified]Onset: 882334-65-1056LunjfwwLejoi complications of (1 source)Vomiting of , unspecified; Translations: [Unspecified vomiting of , unspecified as to episode of care or not applicable] 15-53-6292SnlmpaslMuikm female genital disorders (18 sources)Vaginal discharge; Translations: [Leukorrhea, not specified as infective]Onset: 10-02-2022 Resolved: 642252-12-5740FddssnhpRokov nutritional; endocrine; and metabolic disorders (3 sources)Obese class I; Translations: [Obesity, unspecified]Onset: 07-04-2021 25-82-0262VhtsufgRrnrx and delivery including normal (12 sources); Translations: [Encounter for supervision of normal , unspecified, unspecified trimester]28-02-6026ZozsbsjpAsott screening for suspected conditions (not mental disorders or infectious disease) (4 sources)Patient encounter status; Translations: [Encounter for other specified screening]84-25-6917UcpiaknuDqkls upper respiratory infections (20 sources)Chronic sinusitis; Translations: [Chronic pansinusitis]Onset: 10-02-2022 Resolved: 736004-65-5720CwthchxJdptdl media and related conditions (5 sources)Chronic otitis media; Translations: [Bilateral chronic otitis media] ChronicPolyhydramnios and other problems of amniotic cavity (2 sources)Subchorionic hematoma; Translations: [Other specified disorders of amniotic fluid and membranes, second trimester, not applicable or unspecified] 50-22-7877TxvltdhrQlffmyum codes; unclassified (2 sources)Gestation period, 11 weeks; Translations: [11 weeks gestation of ]89-58-7800FcluaajxQagqhnpf codes; unclassified (2 sources)Gestation period, 12 weeks; Translations: [12 weeks gestation of ]15-52-9072LmqyvveoPcnxzntu codes; unclassified (2 sources)Gestation period, 16 weeks; Translations: [16 weeks gestation of ]92-15-7377PdyunmbvJotoauus codes; unclassified (2 sources)Gestation period, 20 weeks; Translations: [20 weeks gestation of ]95-16-8601CfesczkjQaukuxfb codes; unclassified (2 sources)Gestation period, 24 weeks; Translations: [24 weeks gestation of ]40-62-6291TbhhwkowVtkuaddndgpc (1 source)Unknown / UNK(Unknown)Onset: 54-32-9611Rjjdcvibxudh (3 sources)APPOINTMENT CANCELLEDOnset: 620065-33-1812Kkujjgnebpns (20 sources)OB RemindersOnset: 801401-61-7736 Past or Other Problems Problem ClassificationProblemDateDocumented DateEpisodic/ChronicAcute and chronic tonsillitis (9 sources)Amygdalolith; 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 Calderon. lamotrigine;Inflammatory diseases of female pelvic organs (18 sources)Bacterial vaginosis; Translations: [Vaginitis and vulvovaginitis, unspecified]Onset: 07-04-2021 Resolved: 52-53-2013HdrnrkylFbxucqb and fatigue (4 sources)Fatigue; Translations: [Other fatigue]Onset: EpisodicMalposition; malpresentation (20 sources)Breech presentation; Translations: [Maternal care for breech presentation, not applicable or unspecified]Onset: 202666-61-4769Isdhnree Nonspecific chest pain (20 sources)Chest pain; Translations: [Chest pain, unspecified]Onset: 10-02-2022 Resolved: 854792-57-5000AcmdfetqAtqezvlagyt deficiencies (20 sources)Cobalamin deficiency; Translations: [Other B-complex deficiencies] Onset: 609614-12-0084QqvmranzEnznr circulatory disease (20 sources)Feeling of lump in throat; Translations: [Gastrointestinal malfunction arising from mental factors]Onset: 10-02-2022 Resolved: 659266-81-5360UyrxuhorCnjxa circulatory disease (20 sources)Elevated blood-pressure reading without diagnosis of hypertension; Translations: [Elevated blood pressure reading without diagnosis of hypertension]Onset: 10-02-2022 Resolved: 889428-30-6048PiwpnoxkEoeep ear and sense organ disorders (20 sources)Conductive hearing loss, bilateral; Translations: [Conductive hearing loss, bilateral]Onset: 10-02-2022 Resolved: 209279-09-0574CzmveqqVroug nutritional; endocrine; and metabolic disorders (9 sources)Obesity; Translations: [Obesity, unspecified]Onset: 03-28-2023 Resolved: 029616-31-9215FfxshshPyzov nutritional; endocrine; and metabolic disorders (19 sources)Abnormal weight gain; Translations: [Abnormal weight gain]Onset: 10-02-2022 Resolved: 078546-88-7633GftrurdsKjdaz skin disorders (20 sources)Loss of hair; Translations: [Alopecia, unspecified]Onset: 10-02-2022 Resolved: 439399-58-5014WtegqmbaZbian upper respiratory disease (20 sources)Allergic rhinitis; Translations: [Allergic rhinitis, cause unspecified]Onset: 10-02-2022 Resolved: 672509-08-2308RkdknfxDwqkig media and related conditions (19 sources)Chronic otitis media; Translations: [Unspecified otitis media]Onset: 10-02-2022 Resolved: 071055-31-7614JpdpevbeLcpgkdez codes; unclassified (20 sources)Insomnia; Translations: [Insomnia, unspecified]Onset: 10-02-2022 Resolved: 175636-56-4794BjdtalbrTcxzprkqdavq (1 source)R07.9 44103/8Onset: 55-70-6120Fjcyhzkupdlz (5 sources)Patient encounter status; Translations: [Encounter for audiology evaluation]Unclassified (2 sources)Onset: 849520-62-6827QNANRFZ: Highlighted row has not occurred! Residual codes; unclassified (17 sources)DiseaseEpisodic Results Test NameValueInterpretationReference RangeFacilityALL CBC WITH AUTO DIFFon 62-81-2110AZYAUSIRM ABSOLUTE AUTO0.0NOMS HealthcareBasophils/100 WBC (Bld)0.1 % Low0.2 - 2.0 %NOMS HealthcareEosinophils/100 WBC (Bld)0.1 %Low0.9 - 7.0 %NOMS HealthcareErythrocyte distribution width (RBC) [Ratio]12.3 %11.0 - 15.0 %NOMS HealthcareHematocrit (Bld) [Volume fraction]30.2 %Low36.0 - 48.0 %NOMS HealthcareHemoglobin (Bld) [Mass/Vol]10.2 g/dLLow12.0 - 16.0 g/dLNOWY Healthcare IMMATURE GRANULOCYTES ABS AUTO0.07HighNOMS HealthcareImmature granulocytes/100 WBC (Bld)0.7 %High0.0 - 0.5 %N[facility]S HealthcareInterpretation and review of laboratory resultsAbnormalNOMS HealthcareLYMPHOCYTES ABSOLUTE AUTO2.2NOMS HealthcareLymphocytes/100 WBC (Bld)22.1 %20.5 - 60.0 %NOMS HealthcareMCH (RBC) [Entitic mass]31.8 pg26.7 - 34.0 pgSaint Luke's East HospitalMCHC (RBC) [Mass/Vol]33.8 g/dL 29.9 - 35.2 g/dLSaint Luke's East HospitalMCV (RBC) [Entitic vol]94.1 fL81.0 - 99.0 fLNOWY HealthcareMONOCYTES ABSOLUTE AUTO0.6NOWY HealthcareMonocytes/100 WBC (Bld)5.9 % 1.7 - 12.0 %NOM HealthcareNEUTROPHILS ABSOLUTE AUTO6.9HighSaint Luke's East Hospital Neutrophils/100 WBC (Bld)71.1 %43.0 - 75.0 %NOM HealthcarePlatelet mean volume (Bld) [Entitic vol]8.9 fLLow9.5 - 13.5 fLNOWY HealthcareTBH EO #0.0NOWY HealthcareTBH ZPM605JKRI HealthcareTB RBC3.21LowNOWY HealthcareTBH WBC9.8NOWY HealthcareCLINISYNCNOMS HealthcareUrinalysis macro (dipstick) panel (U)on 25-59-5958Pglksxdeu, UANegativeNegative - 4(70) +++ mg/dLNOWY HealthcareBlood, UANegativeNegative - 50 Jae/mcLNOWY HealthcareClarity, UAClearNOWY Healthcare Color, UAYellowNOWY HealthcareGlucose, UANegativeNegative - 2000(110) ++++ mg/dL [facility] HealthcareInterpretation and review of laboratory resultsAbnormalNOWY HealthcareKetones, UANegativeNegative - 160(16) ++++ mg/dLAMERICAN FORK HOSPITAL Healthcare Leukocytes, UA2+Negative - 500+++ Marsha/mcLNOWY HealthcareNitrite, UANegative Negative - PositiveNOMS HealthcarepH, UA6.05 - 9NOWY HealthcareProtein, UA NegativeNegative - 2000(20) ++++ mg/dLNOWY HealthcareSpec Grav, UA1.0201 - 1.03 NOMS HealthcareUrobilinogen, UA1.00.2 - 12 mg/dLNOWY HealthcareNOWY Healthcare AFP, SERUM, OPEN SPINA BIFIDAon 10-37-3640GJM MOM0.82.[facility] HealthcareAFP VALUE 45.0 ng/mL.[facility] HealthcareCOMMENT:Comment.[facility] HealthcareComment on above:Jeny Avila, Ph.D., [facility] Director References: Available Upon Request. Multiples Of Median Cutoffs For AFP Elevations Payan 2.5 Black 2.8 IDD 2.0 Twins 4.5 Abbreviation Definitions IDD - Insulin Dep Diabetes OSBR - Open Spina Bifida Risk For further inquiries contact [facility] at [phone]. This test was developed and its performance characteristics determined by [facility]. It has not been cleared or approved by the Food and Drug Administration. Performed at: [facility] [address] [place], [place] [id number] Wound Care Technician: Abdulaziz Aquino [facility], Phone: [phone] GEST. AGE ON COLLECTION DATE20.7. weeksNOWY HealthcareGESTAT. AGE BASED ONLMP. NOMS HealthcareComment on above:Recalculations are not recommended when gestational dating by LMP and ultrasound are within 10 days. INSULIN DEP DIABETESNo.[facility] HealthcareINTERPRETATIONComment.[facility] Healthcare Comment on above:Interpretation: Screen [...] Customer Services to discuss available options. The [employer] recommends amniocentesis be offered to women age 35 and older. MATERNAL AGE AT EDD31.8. yrNOWY HealthcareMULTIPLE GESTATIONNo.[facility] OSBR RISK 1 [id number].NOMS HealthcareRACECaucasian.NOMS HealthcareRESULTSReport. NOMS HealthcareTEST RESULTS:Negative.NOMS ZvuawjzaniIIHYIM603. lbsNOWY HealthcarePREGNANCY N N LMP [id number] 2 16 N 1 Y 183 N N N N N White/ CLINISYNCNOWY HealthcareNo Panel InformationOrdered By: Radiologist Radiology on 93-56-7511ZJES Healthcare Work Phone: No Panel Informationon 39-80-9813Zzgupkgvo Study observation (narrative)NOMS HealthcareUS OB ANATOMYon 20-72-[address]72[address] [address] Ultrasound Report Signed Patient: PRINCESS GUERRERO MR#: [id number] : 1995 Acct:[id number] Age/Sex: 29 / F ADM Date: 04/03/25 Loc: US Attending Dr: Willis Chen D.O. Ordering Physician: Willis Chen D.O. Date of Service: 04/03/25 Procedure(s): US OB anatomy Accession Number(s): [id number] cc: Willis Chen D.O.; KOFFI URIARTE M.D. [place] [address] Patient Name: PRINCESS GUERRERO MRN: [id number] date: 1995 Sex: F Assigned Patient Location: US Current Patient Location: Accession/Order Number: [id number] Exam Date: 04/03/2025 18:53 Report Date: 04/04/2025 [...] all 4 extremities were surveyed by the seamless tube drawer and no abnormalities were reported. The stomach, [...] Pisano M.D. 04/04/2025 9:12 AM Dictation Location: [place] [address] Electronically authenticated by: [id number] Y Date: 04/04/2025 09:12 Dictated By: Cyndi Pisano M.D. Signed By: 04/04/25913 DD/ 1 TD/TT: Rug Cutter Helper:TBHRadiology, Radiologist, - 04/04/2025 [place] [address] Ultrasound Report Signed Patient: PRINCESS GUERRERO MR#: [id number] : 1995 Acct:[id number] Age/Sex: 29 / F ADM Date: 04/03/25 Loc: US Attending Dr: Willis Chen D.O. Ordering Physician: Willis Chen D.O. Date of Service: 04/03/25 Procedure(s): US OB anatomy Accession Number(s): [id number] cc: Willis Chen D.O.; KOFFI URIARTE M.D. The [address] [address] Patient Name: PRINCESS GUERRERO MRN: [facility]:[id number] date: 1995 Sex: F Assigned Patient Location: US Current Patient Location: Accession/Order Number: [id number] Exam Date: 04/03/2025 18:53 Report Date: 04/04/2025 [...] all 4 extremities were surveyed by the seamless tube drawer and no abnormalities were reported. The stomach, [...] Pisano M.D. 04/04/2025 9:12 AM Dictation Location: [place] [address] Electronically authenticated by: [id number] Y Date: 04/04/2025 09:12 Dictated By: Cyndi Pisano M.D. Signed By: 04/04/25913 DD/ 1 TD/TT: Rug Cutter Helper: JOSY Lopez OB CERVICAL LENGTHon 76-72-0109[place] [address] Ultrasound Report Signed Patient: PRINCESS GUERRERO MR#: [id number] : 1995 Acct:[id number] Age/Sex: 29 / F ADM Date: 04/03/25 Loc: US Attending Dr: Willis Chen D.O. Ordering Physician: Willis Chen D.O. Date of Service: 04/03/25 Procedure(s): US OB cervical length Accession Number(s): [id number] cc: Willis Chen D.O.; KOFFI URIARTE M.D. The [place] [address] Patient Name: PRINCESS GUERRERO MRN: [facility]:[id number] date: 1995 Sex: F Assigned Patient Location: Current Patient Location: Accession/Order Number: [id number] Exam Date: 04/03/2025 18:53 Report Date: 04/04/2025 [...] all 4 extremities were surveyed by the seamless tube drawer and no abnormalities were reported. The stomach, [...] Pisano M.D. 04/04/2025 9:12 AM Dictation Location: [facility] Electronically authenticated by: [id number] Y Date: 04/04/2025 09:12 Dictated By: Cyndi Pisano M.D. Signed By: 04/04/2514 DD/ 1 TD/TT: Rug Cutter Helper:TBHRadiology, Radiologist, - 04/04/2025 [place] [address] Ultrasound Report Signed Patient: PRINCESS GUERRERO MR#: [id number] : 1995 Acct:[id number] Age/Sex: 29 / F ADM Date: 04/03/25 Loc: US Attending Dr: Willis Chen D.O. Ordering Physician: Willis Chen D.O. Date of Service: 04/03/25 Procedure(s): US OB cervical length Accession Number(s): [id number] cc: Willis Chen D.O.; KOFFI URIARTE M.D. The [place] [id number] Patient Name: PRINCESS GUERRERO MRN: [id number] date: 1995 Sex: F Assigned Patient Location: US Current Patient Location: Accession/Order Number: [id number] Exam Date: 04/03/2025 18:53 Report Date: 04/04/2025 [...] all 4 extremities were surveyed by the seamless tube drawer and no abnormalities were reported. The stomach, [...] Pisano M.D. 04/04/2025 9:12 AM Dictation Location: [employer] Electronically authenticated by: [id number] Y Date: 04/04/2025 09:12 Dictated By: Cyndi Pisano M.D. Signed By: 04/04/25913 DD/ 1 TD/TT: Rug Cutter Helper: JOSY EscobarUrinalysis macro (dipstick) panel (U)on 33-37-3674Khnvclbhf, UA NegativeNegative - 4(70) +++ mg/dLNOMS HealthcareBlood, [...] mg/dLNOMS HealthcareNOMS HealthcareUS OB LIMITED 1+ FETUSESon 27-29-7447UK OB LIMITED 1+ FETUSESFINDINGS: Cephalic presentation. Posterior placenta. heart rate 156. No evidence of significant amniotic band or subchronic hemorrhage. IMPRESSION: Normal viable fetus, no gestational sac abnormality TRANSCRIBED BY: ELECTRONICALLY SIGNED BY: Shelia ArellanoNot AvailableIGP,APTIMA HPV,AGE GDLNon 28-61-0805JDS GDLN ACOG TESTINGNote.[facility] HealthcareComment on above:TESTS RESULT FLAG UNITS REF RANGE LAB Clinician Provided Cytology Information Source.............Endocervix No. of containers..01 ThinPrep Vial Age Algo ACOG Evie... FLAG LEGEND: L-Low Normal,H-High Normal,LL-Alert Low,HH-Alert High <-Panic Low,>-Panic High,A-Abnormal,AA-Critical Abnormal Performed at: [address] [address] Karena Lester MD, HPV APTIMANegativeNegativeNOMS HealthcareComment on above:This nucleic acid amplification test detects fourteen high- risk HPV types (16,18,31,33,35,39,45,51,52,56,58,59,66,68) without differentiation. Performed at: =[address] [id number] Wound Care Technician: Karena Lester MD, Phone: [phone] Performed at: [address] [id number] Wound Care Technician: Karena Lester MD, Phone: [phone] IGP, APTIMA HPV, RFX 16/18,45Note.NOMS HealthcareComment on above:TESTS RESULT FLAG UNITS REF RANGE LAB DIAGNOSIS: 02 NEGATIVE FOR INTRAEPITHELIAL LESION OR MALIGNANCY. Specimen adequacy: 02 Satisfactory for evaluation. No endocervical component is identified. Performed by: 02 [employer] Control Supervisor ([facility]) . 02 Note: Note 02 The Pap [...] High,A-Abnormal,AA-Critical Abnormal Performed at: 02 [facility] [address] [place] [address] Karena Lester MD, SPATULA-ALONE ENDOCERVIX CLINISYNCNOMS HealthcareRECURRENT VAGINITIS (HTRX)on 97-48-1764SDNUSOYDH VAGINAE 0NOMS HealthcareATOPOBIUM VAGINAENot detectedNOMS HealthcareBVAB 2,3 (BACTERIAL VAGINOSIS ASSOCIATED BACTERIA 2, 3); MOBILUNCUS OCD4RTVO HealthcareBVAB 2,3 (BACTERIAL VAGINOSIS ASSOCIATED BACTERIA 2, 3); MOBILUNCUS SPPNot detectedNOMS HealthcareCANDIDA ALBICANS, PARAPSILOSIS, [id number] HealthcareCANDIDA ALBICANS, PARAPSILOSIS, TROPICALISNot detectedNOMS HealthcareCANDIDA GLABRATA0 NOMS HealthcareCANDIDA GLABRATANot detectedNOMS HealthcareCANDIDA UPXKSQ2BIXM HealthcareCANDIDA KRUSEINot detectedNOMS HealthcareCHLAMYDIA KLRMXEKJZJL7NUAA HealthcareCHLAMYDIA TRACHOMATISNot detectedNOMS HealthcareGARDNERELLA VAGINALIS0 NOMS HealthcareGARDNERELLA VAGINALISNot detectedNOMS HealthcareMEGASPHAERA (TYPES 1, 2)0NOMS HealthcareMEGASPHAERA (TYPES 1, 2)Not detectedNOMS Healthcare MYCOPLASMA [id number] HealthcareMYCOPLASMA GENITALIUMNot detectedNOMS HealthcareNEISSERIA FJMYEGQVDVP3UAKR HealthcareNEISSERIA GONORRHOEAENot detected NOMS HealthcareTRICHOMONAS PKTVJVYQH4NSNC HealthcareTRICHOMONAS VAGINALISNot detectedNOMS HealthcareNOMS HealthcareUrinalysis macro (dipstick) panel (U)on 48-63-4569Uiretxgny, UANegativeNegative - 4(70) +++ mg/dLNOWY HealthcareBlood, UAPositiveNegative - 50 Jae/mcLNOWY HealthcareClarity, UAClearNOMS Healthcare Color, UAYellowNOMS HealthcareGlucose, UANegativeNegative - 2000(110) ++++ mg/dL [facility] HealthcareInterpretation and review of laboratory resultsAbnormalNOWY HealthcareKetones, UANegativeNegative - 160(16) ++++ mg/dLNOWY Healthcare Leukocytes, UANegativeNegative - 500+++ Marsha/mcLNOWY HealthcareNitrite, UA NegativeNegative - PositiveNOMS HealthcarepH, UA65 - 9NOMS HealthcareProtein, UA NegativeNegative - 2000(20) ++++ mg/dLNOWY HealthcareSpec Grav, UA1.021 - 1.03 NOMS HealthcareUrobilinogen, UA1.00.2 - 12 mg/dLNOMS HealthcareNOMS HealthcareUS OB < 14 WEEKS EARLYon 31-53-3951AA OB < 14 WEEKS EARLYFINDINGS: Single viable [...] period was 11/13/2024.Urinalysis macro (dipstick) panel (U)on 50-12-8248Pjpuuuxjf, UANegativeNegative - 4(70) +++ mg/dLNOWY Healthcare Blood, UANegativeNegative - 50 Jae/mcLAM[facility] HealthcareClarity, UAClearNOMS HealthcareColor, UAYellowNOWY HealthcareGlucose, UANegativeNegative - 2000(110) ++++ mg/dLNOWY HealthcareInterpretation and review of laboratory resultsNormal NOMS HealthcareKetones, UAPositiveNegative - 160(16) ++++ mg/dLAMERICAN FORK [facility]OSP[facility] Healthcare Leukocytes, UANegativeNegative - 500+++ Marsha/[facility] HealthcareNitrite, UA NegativeNegative - PositiveNOWY HealthcarepH, UA55 - 9NOMS HealthcareProtein, UA TraceNegative - 2000(20) ++++ mg/dLNOWY HealthcareSpec Grav, UA1.031 - 1.03NOWY HealthcareUrobilinogen, UA1.00.2 - 12 mg/dLNOMS [facility] WestNOMS HealthcareBOX TESTon 97-87-6082IHI TEST SENT OUTYESAMERICAN FORK HOSPITAL EaxedkqihoGNV1WFYNXYBZW HealthcareBOX2 01/22/25NOWY HealthcareCLINISYNCNOMS HealthcareUS Pelvis transvaginalon 01-14-2025 EXAM: US [...] II, MD, PHD at 14-Jan-2025 10:04:37 PM [facility] IMAGINGSluss, MD Rosenda - 01/14/2025 [...] II, MD, PHD at 14-Jan-2025 10:04:37 PM [employer] NOMS HealthcareUS Pelvis transvaginalOrdered By: Rosenda Torres on 53-35-6235HLWX Healthcare Work Phone: HCG ( test) Ql (U)on 58-82-6882Fmgdanlivdzhqa and review of laboratory resultsAbnormalNOWY HealthcarePreg Test, UrPositive NegativeNOSaint Luke's East HospitalNOWY HealthcareUS OB TRANSVAGINALon 77-42-2451BN OB TRANSVAGINALEXAM: US OB TRANSVAGINAL HISTORY: Dating. [...] II, MD, PHD at 14-Jan-2025 10:04:37 PM [employer] TeleradiologyNormalNot AvailableComment on above:Order Comment: US OB TRANSVAGINAL No LMP recorded.US Pelvis transvaginalon 41-85-4083Zutezvthd Study observation (narrative)NOMS HealthcareUrinalysis macro (dipstick) panel (U)on 01-12-2025 Bilirubin, UANegativeNegative - 4(70) +++ mg/dLNOMS HealthcareBlood, UANegative Negative - 50 Jae/mcLNOMS HealthcareClarity, UAClearNOMS HealthcareColor, UA YellowNOMS HealthcareGlucose, UANegativeNegative - 2000(110) ++++ mg/dLNOMS HealthcareInterpretation and review of laboratory resultsAbHutzel Women's Hospital Ketones, UANegativeNegative - 160(16) ++++ mg/dLNOMS HealthcareLeukocytes, UA TraceNegative - 500+++ Marsha/mcLNOMS HealthcareNitrite, UANegativeNegative - PositiveNOMS HealthcarepH, UA75 - 9NOMS HealthcareProtein, UANegativeNegative - 2000(20) ++++ mg/dLNOMS HealthcareSpec Grav, UA1.021 - 1.03NOMS Healthcare Urobilinogen, UA0.20.2 - 12 mg/dLNOMS HealthcareNOMS Fjeaegwwxl30-dwzvhhnbjxgwbn D3 [Mass/Vol]on 423268-zeugxfefahvblv D [Mass/Vol]26 ng/mLLow30 - 100 ng/mLPaulding County HospitalComment on above:Vitamin D Status 25-OH Vitamin D: Deficiency: <20 ng/mL Insufficiency: 20 - 29 ng/mL Optimal: > or = 30 ng/mL For 25-OH Vitamin D testing on patients on D2-supplementation and patients for whom quantitation of D2 and D3 fractions is required, the QuestAssureD(TM) 25-OH VIT D, (D2,D3), LC/MS/MS is recommended: order code 13916 (patients >2yrs). See Note 1 Note 1 For additional information, please refer to http://education.Peer39.[employer]/faq/SJF497 (This link is being provided for informational/ educational purposes only.) Interpretation and review of laboratory resultsAbSamaritan Hospital (H/H, RBC, INDICES, WBC, PLT)on 06-92-6484Zghxwwdxllm distribution width (RBC) [Ratio]12.3 %Hjniio08.0-15.0Quest DiagnosticsComment on above: Performed By: #### 7600, 73393, 50564, 927, 175, #### [facility] [place] [address] Finished Goods Inspector: Brandon Camara MDHematocrit (Bld) [Volume fraction]38.8 %Normal 35.0-45.0Quest DiagnosticsComment on above:Performed By: #### 7600, 90282, 44170, 927, 175, #### [facility] [place] [address] Finished Goods Inspector: Brandon Camara MDHemoglobin (Bld) [Mass/Vol]12.7 g/dLNormal 11.7-15.5Quest DiagnosticsComment on above:Performed By: #### 7600, 56574, 78920, 927, 1758, #### [facility] [place] [address] Finished Goods Inspector: Brandon Camara MDMCH (RBC) [Entitic mass]28.4 fpLytjhe09.0-33.0 Quest DiagnosticsComment on above:Performed By: #### 7600, 41923, 94227, 927, 175, #### [facility] [place] [address] Finished Goods Inspector: Brandon DOTYCHC (RBC) [Mass/Vol]32.7 g/cSJhfqvc80.0-36.0 Quest DiagnosticsComment on above:Result Comment: For adults, a slight decrease in the calculated MCHC value (in the range of 30 to 32 g/dL) is most likely not clinically significant; however, it should be interpreted with caution in correlation with other red cell parameters and the patient's clinical condition.Performed By: #### 7600, 15119, 86952, 927, 1759, 56426 #### [facility] of [place] [address], [address] [place] [phone] Finished Goods Inspector: Brandon Camara MDMCV (RBC) [Entitic vol]86.8 zFSwpsrp34.0-100.0 Quest DiagnosticsComment on above:Performed By: #### 7600, 35814, 17281, 927, 1759, 04160 #### [facility] [place] [address], [address] [place] [phone] Finished Goods Inspector: Brandon Camara MDPlatelet mean volume (Bld) [Entitic vol]9.0 fL Normal7.5-12.5Quest DiagnosticsComment on above:Performed By: #### 7600, 56172, 90592, 927, 175, #### [facility] [place] [address] , [address] [place], [place] [phone] Finished Goods Inspector: Brandon Camara MDPlatelets (Bld) [#/Vol]260 10*3/uLNormal 140-400Quest DiagnosticsComment on above:Performed By: #### 7600, 12359, 13982, 927, 1759, 15879 #### [facility] [place] [address], [address] [place], [place] [phone] Finished Goods Inspector: Brandon Camara MDRBC (Bld) [#/Vol]4.47 10*6/uLNormal3.80-5.10 Quest DiagnosticsComment on above:Performed By: #### 7600, 96883, 38825, 927, 1759, 26576 #### [facility] [place] [address], [address] [place] [phone] Finished Goods Inspector: Brandon Camara MDWBC (Bld) [#/Vol]5.5 10*3/uLNormal3.8-10.8 Quest DiagnosticsComment on above:Performed By: #### 7600, 56517, 70346, 927, 1759, 13158 #### [facility] [place] [address], [address] [place] [address] Finished Goods Inspector: Brandon Camara MDCBC panel Auto (Bld)on 61-33-5824Pupfcrsydee distribution width (RBC) [Ratio]12.3 %11.0 - 15.0 %[facility]ding County HospitalHematocrit (Bld) [Volume fraction]38.8 %35.0 - 45.0 %[facility]ding County HospitalHemoglobin (Bld) [Mass/Vol]12.7 g/dL11.7 - 15.5 g/dL [facility] (RBC) [Entitic mass]28.4 pg27.0 - 33.0 pg [facility] SystemHC (RBC) [Mass/Vol]32.7 g/dL32.0 - 36.0 g/dL [facility] County HospitalComment on above:For adults, a slight decrease in the calculated MCHC value (in the range of 30 to 32 g/dL) is most likely not clinically significant; however, it should be interpreted with caution in correlation with other red cell parameters and the patient's clinical condition. MCV (RBC) [Entitic vol]86.8 fL80.0 - 100.0 [facility] Platelet mean volume (Bld) [Entitic vol]9 fL7.5 - 12.5 [facility] HospitalPlatelets (Bld) [#/Vol]260 10*3/[facility] CenterRBC (Bld) [#/Vol]4.47 10*6/[facility] CenterWBC (Bld) [#/Vol]5.5 10*3/[facility] Medical CenterCOMPREHENSIVE METABOLIC PANEL W/ANION GAPon 05-62-3482Zwhhwee [Mass/Vol]4.8 g/dLNormal3.6-5.1Quest DiagnosticsComment on above:Performed By: #### 4508, 81383, 17324, 325, 1758, 42687 #### [facility] [address] [facility], [address] [place] [address] Finished Goods Inspector: Brandon Camara MDALP [Catalytic activity/Vol]60 U/YSldjdh62-852 Quest DiagnosticsComment on above:Performed By: #### 7600, 63271, 19397, 927, 175, #### [facility] of [address], [address] [place] [address] Finished Goods Inspector: Brandon Camara MDALT [Catalytic activity/Vol]14 U/LNormal6-29 Quest DiagnosticsComment on above:Performed By: #### 7600, 00267, 70851, 92, 1758, #### [facility] of [address], [address] [place] [address] Finished Goods Inspector: Brandon Camara MDAST [Catalytic activity/Vol]12 U/YFckxse30-98 Quest DiagnosticsComment on above:Performed By: #### 7600, 31474, 31347, 92, 1758, #### [facility] of [address], [address] [place] [address] Finished Goods Inspector: Brandon Camara MDBilirubin [Mass/Vol]0.4 mg/dLNormal0.2-1.2 Quest DiagnosticsComment on above:Performed By: #### 7600, 43274, 52419, 92, 1758, #### [facility] [place] [address] Finished Goods Inspector: Brandon Camara MDCalcium [Mass/Vol]9.6 mg/dLNormal8.6-10.2Quest DiagnosticsComment on above:Performed By: #### 7600, 44396, 85848, 92, 1758, #### [facility] of [address], [address] [place] [address] Finished Goods Inspector: Brandon Camara MDChloride [Moles/Vol]102 mmol/ZBpyxdb10-779 Quest DiagnosticsComment on above:Performed By: #### 7600, 44893, 27773, 92, 175, #### [facility] [place] [address] Finished Goods Inspector: Brandon Merati MDCO2 [Moles/Vol]28 mmol/RKqdxwy87-95Ythoc DiagnosticsComment on above:Performed By: #### 7600, 93597, 79014, 927, 175, #### [facility] [place] [address] Finished Goods Inspector: Brandon MOREIRAreatinine [Mass/Vol]0.86 mg/dLNormal0.50-0.97 Quest DiagnosticsComment on above:Performed By: #### 7600, 09275, 99640, 92, 175, #### [facility] [place] [address] Finished Goods Inspector: Brandon Camara MDELECTROLYTE BALANCE7 mmol/L (calc)Normal7-17 Quest DiagnosticsComment on above:Performed By: #### 7600, 85680, 14305, 92, 1758, #### [facility] [place] [address] Finished Goods Inspector: Brandon Camara MDGFR/1.73 sq M.predicted among non-blacks MDRD (S/P/Bld) [Vol rate/Area]93 mL/min/{1.73_m2}Normal> OR = 60[facility] Comment on above:Performed By: #### 7600, 59230, 38765, 92, 1758, #### [facility] [place] [address] Finished Goods Inspector: Brandon Camara MDGlucose [Mass/Vol]90 mg/kQIsgmzs25-51Frwqt DiagnosticsComment on above:Result Comment: Fasting reference intervalPerformed By: #### 7600, 91988, 11869, 927, 175, 18300 #### [facility] [place] [address] Finished Goods Inspector: Brandon Camara MDPotassium [Moles/Vol]4.5 mmol/LNormal3.5-5.3 Quest DiagnosticsComment on above:Performed By: #### 7600, 55865, 55576, 927, 1759, 37953 #### [facility] [place] [address] Finished Goods Inspector: Brandon Camara MDProtein [Mass/Vol]7.4 g/dLNormal6.1-8.1Quest DiagnosticsComment on above:Performed By: #### 7600, 80414, 83494, 927, 1759, 11621 #### [facility] [address], [address] [place] [address] Finished Goods Inspector: Brandon Camara MDSodium [Moles/Vol]137 mmol/TBnhcwn827-702Sncvw DiagnosticsComment on above:Performed By: #### 7600, 71192, 78354, 927, 1759, 03001 #### [facility] of [address], [address] [place] [address] Finished Goods Inspector: Brandon Camara MDUrea nitrogen [Mass/Vol]7 mg/dLNormal7-25Quest DiagnosticsComment on above:Performed By: #### 7600, 80781, 90481, 927, 1759, 37384 #### [facility] of [place] [address] Finished Goods Inspector: Brandon Camara MDComprehensive metabolic 2000 panelon 33-10-6448Njlvmso [Mass/Vol]4.8 g/dL3.6 - 5.1 g/dLUnMercer County Community HospitalALP [Catalytic activity/Vol]60 U/L31 - 125 U/[facility] RehabilitationALT [Catalytic activity/Vol]14 U/L6 - 29 U/[facility] RehabilitationAnion gap [Moles/Vol]7 mmol/[facility] RehabilitationAST [Catalytic activity/Vol]12 U/L10 - 30 U/[facility] Bilirubin [Mass/Vol]0.4 mg/dL0.2 - 1.2 mg/dLUnMercer County Community Hospital Calcium [Mass/Vol]9.6 mg/dL8.6 - 10.2 mg/dLUnMercer County Community Hospital Chloride [Moles/Vol]102 mmol/L98 - 110 mmol/[facility] CO2 [Moles/Vol]28 mmol/L20 - 32 mmol/[facility] Creatinine [Mass/Vol]0.86 mg/dL0.50 - 0.97 mg/dLUnMercer County Community HospitalGFR/1.73 sq M.predicted among non-blacks MDRD (S/P/Bld) [Vol rate/Area] 93 mL/min/{1.73_m2}> OR = 60 mL/min/1.54n7WxwaussrssMercer County Community Hospital Glucose [Mass/Vol]90 mg/dL65 - 99 mg/dLUnMercer County Community HospitalComment on above: Fasting reference interval Potassium [Moles/Vol]4.5 mmol/L3.5 - 5.3 mmol/[facility] Protein [Mass/Vol]7.4 g/dL6.1 - 8.1 g/dLUnMercer County Community HospitalSodium [Moles/Vol]137 mmol/L135 - 146 mmol/[facility] for RehabilitationUrea nitrogen [Mass/Vol]7 mg/dL7 - 25 mg/dLUnMercer County Community HospitalLIPID PANEL, STANDARDon 92-52-1839Ydqukhqfbrb [Mass/Vol]167 mg/dLNormal<200Quest DiagnosticsComment on above:Order Comment: FASTING:YES FASTING: YESPerformed By: #### 7600, 28111, 84067, 927, 1759, 98586 #### [facility] [address], [address] [place] [address] Finished Goods Inspector: Brandon Camara MDCholesterol in HDL [Mass/Vol]52 mg/dLNormal> OR = 50Quest DiagnosticsComment on above:Order Comment: FASTING:YES FASTING: YESPerformed By: #### 7600, 31404, 77798, 927, 1759, 17797 #### [employer] [facility] [address] [place] [address] Finished Goods Inspector: Brandon Camara MDCholesterol in LDL [Mass/Vol]95 mg/dLNormal [...] LDL-C. Tres SS et al. STEPHANIE. 2013;310(19): 8829-3553 (http://education.[employer]/faq/BXE807)Performed By: #### 7600, 75597, 25804, 927, 1759, 04810 #### [facility] [address], [address] [place] [address] Finished Goods Inspector: Brandon MOREIRAholesterojohn.total/Cholesterol in HDL [Mass ratio]3.2 {ratio}Normal<5.0Quest DiagnosticsComment on above:Order Comment: FASTING:YES FASTING: YESPerformed By: #### 7600, 47511, 96024, 927, 1759, 55715 #### [facility] [address], [address] [place], [place] [phone] Finished Goods Inspector: Brandon NICOLE HDL WGTBULQPCTE612 mg/dL (calc)Normal<130 [facility] DiagnosticsComment on above:Order Comment: FASTING:YES FASTING: YESResult Comment: For patients with diabetes plus 1 major ASCVD risk factor, treating to a non-HDL-C goal of <100 mg/dL (LDL-C of <70 mg/dL) is considered a therapeutic option.Performed By: #### 7600, 91622, 62254, 927, 1759, 47243 #### [facility] [address], [address] [place], [place] [phone] Finished Goods Inspector: Brandon Camara MDTriglyceride [Mass/Vol]103 mg/dLNormal<150 [facility] DiagnosticsComment on above:Order Comment: FASTING:YES FASTING: YESPerformed By: #### 7600, 70846, 73648, 927, 1751, 15738 #### [employer] [facility] [address] [facility], [address] [place] [address] Finished Goods Inspector: Brandon Camara MDLipid 1996 panelon 78-64-2999Rcgppoecdlj [Mass/Vol]167 mg/dLNINF - 200 mg/dLUnMercer County Community HospitalCholesterol in HDL [Mass/Vol]52 mg/dL> OR = 50UnMercer County Community HospitalCholesterol in LDL [Mass/Vol]95 mg/dLmg/dL (calc)[facility] County HospitalComment on above:Reference range: <100 Desirable range <100 mg/dL for primary prevention; <70 mg/dL for patients with CHD or diabetic patients with > or = 2 CHD risk factors. LDL-C is now calculated using the Dean calculation, which is a validated novel method providing better accuracy than the Friedewald equation in the estimation of LDL-C. Tres SS et al. STEPHANIE. 2013;310(19): 0911-2137 (http://education.[employer]/faq/UTR966) Cholesterol non HDL [Mass/Vol]115 mg/dLNINFPaulding County Hospital Comment on above:For patients with diabetes plus 1 major ASCVD risk factor, treating to a non-HDL-C goal of <100 mg/dL (LDL-C of <70 mg/dL) is considered a therapeutic option. Cholesterol.total/Cholesterol in HDL [Mass ratio]3.2 {ratio}NINMercy Health St. Vincent Medical CenterTriglyceride [Mass/Vol]103 mg/dLNINF - 150 mg/dLUnMercer County Community HospitalNo Panel Informationon 63-88-0766RHHAFYY:YES FASTING: YESQUEST DIAGNOSTICS-MEDWAYUnMercer County Community HospitalTSH W/REFLEX TO FT4on 46-24-9796NAK W/REFLEX TO FT42.63 mIU/LNormalQuest [facility] Comment on above:Result Comment: Reference Range > or = 20 Years 0.40-4.50 Ranges First trimester 0.26-2.66 Second trimester 0.55-2.73 Third trimester 0.43-2.91Performed By: #### 4300, 74689, 20876, 927, 1750, 01506 #### [facility] [address], [address] [place] [address] Finished Goods Inspector: Brandon Camara MDARBOR HEALTH with reflex to Free T4 if abnormalon 97-69-2621MEX Qn2.63 m[IU]/LmIU/[facility] RehabilitationComment on above:Reference Range > or = 20 Years 0.40-4.50 Ranges First trimester 0.26-2.66 Second trimester 0.55-2.73 Third trimester 0.43-2.91 VITAMIN B12on 59-46-5568Caqsidkqz (Vitamin B12) [Mass/Vol]402 pg/mLNormal 200-1100Quest DiagnosticsComment on above:Performed By: #### 7600, 43101, 35515, 136, 5369, 80863 #### [facility] [address], [address] [place] [address] Finished Goods Inspector: Brandon Camara MDVITAMIN D,25-OH,TOTAL,IAon 03-95-8147CTGMYTW D,25-OH,TOTAL,IA26 ng/oHNcx17-376Auotg DiagnosticsComment on above:Result Comment: Vitamin D Status 25-OH Vitamin D: Deficiency: <20 ng/mL Insufficiency: 20 - 29 ng/mL Optimal: > or = 30 ng/mL For 25-OH Vitamin D testing on patients on D2-supplementation and patients for whom quantitation of D2 and D3 fractions is required, the QuestAssureD(TM) 25-OH VIT D, (D2,D3), LC/MS/MS is recommended: order code 37523 (patients >2yrs). See Note 1 Note 1 For additional information, please refer to http://education.Peer39.TianKe Information Technology/faq/MES242 (This link is being provided for informational/ educational purposes only.)Performed By: #### 7600, 12730, 81704, 92, 8393, 94287 #### [facility] [address], [address] [place] [phone] Finished Goods Inspector: Brandon Camara MDVitamin B12on 92-83-3608Dsopnresd (Vitamin B12) [Mass/Vol]402 pg/mL200 - 1100 pg/mLUnMercer County Community Hospital Quantiferon-TB Plus (Client Incubated)on 07-97-8214Sbptm interferon background IA Qn (Bld)0.01 International_Unit/mLInvalid Interpretation [facility]. [facility] HospitalComment on above:Performed By: #### [id number] #### [facility] [address] [place] [address]. tuberculosis stim IFN-g by CD4+ CD8+ T-cells corrected for background Qn (Bld)0.02 International_Unit/mLInvalid Interpretation CodeOhiohealth Mansfield HospitalComment on above:Performed By: #### [id number] #### [facility] [address] [place] [address]. tuberculosis stim IFN-g by CD4+ T-cells corrected for background Qn (Bld)0.03 International_Unit/mLInvalid Interpretation [facility]. [facility] HospitalComment on above:Performed By: #### [id number] #### [facility] [address] [place] [address]. tuberculosis stim IFN-g Ql (Bld) [Interp]NegativeInvalid Interpretation CodeNegativeOhiohealth Mansfield HospitalComment on above:Result Comment: No response to [...] interferon gamma. Chemiluminescence immunoassay methodology Performed at: [facility] [address] [place] [id number] PhD Leeanne GarciaPerformed By: #### [id number] #### [facility] [address] [place], [place] [address]Mitogen stimulated gamma interferon corrected for background Qn (Bld)>10.00Invalid Interpretation St. [facility] HospitalComment on above:Performed By: #### [id number] #### [facility] [address] [place] [address]Mcbvdrd comment (Unsp spec) [Interp]CommentInvalid Interpretation St. [facility] HospitalComment on above:Result Comment: QuantiFERON-TB Gold Plus [...] a control for the test.Performed By: #### [id number] #### [facility] [address] [place] [address]Zzg Bs Abon 65-84-4569YBJ surface Ab Ql (S)ReactiveInvalid Interpretation St. Francis HospitalComment on above:Result Comment: Non Reactive: Not immune to HBV infection. Equivocal: Unable to determine if anti-HBs is present at levels consistent with immunity. Reactive: Anti-HBs concentration detected at greater than 10 mIU/mL. Individual is considered to be immune to infection with HBV. Performed at: [address] [id number] PhD Leeanne Moyaformed By: #### [id number] #### [facility] [address] [place] [address]Hjyheqr/Mumps/Rubella Immunityon 69-90-9105JjC IgG IA Qn (S) 206.0 A unit/mLInvalid Interpretation CodeImmune >16.4Fisher [facility] InstituteComment on above:Result Comment: Negative <13.5 Equivocal 13.5 - 16.4 Positive >16.4 Presence of antibodies to Rubeola is presumptive evidence of immunity except when acute infection is suspected.Performed By: #### [id number] #### [facility] [address] [place] [address]McA IgG IA Qn (S)38.5 A unit/mLInvalid Interpretation Code Immune >10.9Ohio[facility] HospitalComment on above:Result Comment: Negative <9.0 Equivocal 9.0 - 10.9 Positive >10.9 A positive result generally indicates past exposure to Mumps virus or previous vaccination. Performed at: [facility] [address] [place], [place] [id number] PhD Leeanne GarciaPerformed By: #### [id number] #### [facility] [address] [place] [address] 54203Nwqemny virus IgG Qn (S)1.07 [IU]/mLInvalid Interpretation Code Immune >0.99Ohiohealth Mansfield HospitalComment on above:Result Comment: Non- immune <0.90 Equivocal 0.90 - 0.99 Immune >0.99Performed By: #### [id number] #### [facility] [address] [place] [address] 40894Ciiac IgGon 47-26-0539BSU IgG IA Qn (S)1518Invalid Interpretation CodeImmune >165Ohiohealth Mansfield HospitalComment on above:Result Comment: Negative <135 Equivocal 135 - 165 Positive >165 A positive result generally indicates exposure to the pathogen or administration of specific immunoglobulins, but it is not indication of active infection or stage of disease. Performed at: [facility] [address] [place], [place] [id number] PhD Leeanne GarciaPerformed By: #### [id number] #### [facility] [address] [place] [address] 32162Wywbnjk Formson 81-81-7706Lpbelgp Forms [id number]#1.00OTGTIFFCleveland Clinic Marymount HospitalED Clinical Summaryon 51-07-4966QU [facility] [address] [place], [place] [id number] Clinical Summary PERSON INFORMATION Name: PRINCESS GUERRERO Age: 28 Years Sex: FEMALE : 1995 MRN: Acct#: Visit Reason: Medical screening exam; OTTERBEIN PHYSICAL Arrival: 12/15/2023 11:27:18 Discharge: 12/15/2023 11:57:00 LOS: 000 00:30 Check In: 12/15/2023 11:27:18 Checkout: 12/15/2023 11:57:00 Address: [address] [place], [place] [id number] PCP: Provider, None PROVIDER INFORMATION Provider Role [...] blood pressure. With: Address: When: None Provider [address] [place] [address] DIAGNOSIS: Elevated blood pressure reading; Physical exam Patient Understands: Yes - Patient/family/caregiver verbalizes understanding of instructions given Comment:[facility] HospitalED Patient Summary 51-28-4804SG Patient Summary [facility] ? Urgent Care [address] [place] [address] PATIENT DISCHARGE INSTRUCTIONS Patient Information Name: PRINCESS [...] pressure. With: Address: When: None Provider [address] [place] [address] Hypertension, Adult High blood pressure (hypertension) is [...] as fish, chicken wit (more content not included)...[facility] HospitalUrgent Care Note- Provideron 17-62-9297Wdruyw Care Note- ProviderPatient: PRINCESS GUERRERO Age: 28 [...] - pharynx pink and moist. NECK: -Supple (rhsy-qc-ljijx): non-tender. CARD: -Rate and rhythm: Regular RESP: [...] Plan Assessment and Plan: Diagnosis: Physical exam (HHW51-WW Z00.00), Elevated blood pressure reading (WRY52-DA R03.0). Cleared for employment [Electronically Signed on: 12/15/2023 11:52 EDT] TARAS FAUSTIN [Verified on: 12/15/2023 11:52 EDT] TARAS FAUSTIN [facility] 61-20-9721[facility]cf[facility] [address] [place], [place] [id number] PATIENT DISCHARGE INSTRUCTIONS Patient Information Name: PRINCESS [...] blood pressure. With: Address: When: None Provider [address] [place] [address] Medication Information: The exam and treatment you received today in the [facility] were for an urgent problem and are not intended as complete care. It is important for you to follow up with a doctor, nurse practitioner, or physician?s hotel administrative assistant for ongoing care. If your symptoms [...] can reach you if necessary. [facility] has provided you with a complete list of medications post discharge. Please inform your primary care coordinator/provider of your visit and for further instruction [...] too much fat, sugar, (more content not included)...[facility] 88-57-1919NRiafipnu: BS24-10 Received: 08/04/23 Status: LAZARA Lyn Num: [id number] Spec Type: Surgical Subm Dr: Willis Chen Tissues: A Placenta - 3rd Trimester (Greater than 28 weeks) (PLACENTA) Procedures: HE/3, Gross/Micro L5 Age/ Patient Sex Location Account Attending Physician Princess Cantu 27/F LABELL [id number] Willis Chen SPEC NUM: [id number] RECD: 08/04/23 STATUS: LAZARA LYN NUM: [id number] JOSE: 08/04/[address]: Willis Chen ENTERED: 08/04/[address] [facility] [address]: Giselle,Lab SPEC TYPE: Surgical DEPT: ROSS [...] parenchyma up to 3.1 cm in thickness. Belt Molder sections are submitted in 3 cassettes as follows: A1 - membranes, umbilical cord, and decidua basalis A2 - Central placenta full-thickness A3 - Peripheral placenta, full-thickness Specimen: [id number] Received: 08/04/23 Status: LAZARA Lyn Num: [id number] Spec Type: Surgical Subm Dr: Willis Chen Tissues: A Placenta - 3rd Trimester (Greater than 28 weeks) (PLACENTA) Procedures: HE/3, Gross/Micro L5 Patient: Princess Cantu [id number] (Continued) Specimen: [id number] Received: 08/04/23 (Continued) Signed (signature on file) Juliet Sykes MD 08/08/232229 Specimen: BS24- Received: 08/04/23 Status: LAZARA Lyn Num: [id number] Spec Type: Surgical Subm Dr: Willis Chen Tissues: A Placenta - 3rd Trimester (Greater than 28 weeks) (PLACENTA) Procedures: DELMY/3Jesica/Danitza L5 Patient: Princess Cantu [id number] (Continued) Specimen: [id number] Received: 08/04/23 (Continued) CPT Codes 13309 Specimen: BS24- Received: 08/04/23 Status: LAZARA Lyn Num: [id number] Spec Type: Surgical Subm Dr: Willis Chen Tissues: A Placenta - 3rd Trimester (Greater than 28 weeks) (PLACENTA) Procedures: DELMYJesica Ott/Danitza L5 Patient: Princess Cantu [id number] (Continued) Signed (signature on file) Juliet Sykes MD 08/08/[address] [place], [place] [address]US OB BPP W NON-STRESS on 68-51-4126[place], [place] [address] Ultrasound Report Signed Patient: PRINCESS CANTU MR#: [id number] : 1995 Acct:[id number] Age/Sex: 27 / F ADM Date: 07/31/23 Loc: US Attending Dr: Willis Chen D.O. Ordering Physician: Willis Chen D.O. Date of Service: 07/31/23 Procedure(s): US OB BPP w non-stress Accession Number(s): [id number] cc: iWllis Chen D.O.; Physician,Non-Staff Jake [address] [address] Patient Name: PRINCESS CANTU MRN: TBH:[id number] date: 1995 Sex: F Assigned Patient Location: US Current Patient Location: US Accession/Order Number: [id number] Exam Date: 07/31/2023 11:04 Report Date: 08/03/2023 [...] M.D. Signed By: 08/03/23719 DD/ 7 TD/TT: Rug Cutter Helper:TBHRadiology, Radiologist, - 09/22/2023 [place] [address] Ultrasound Report Signed Patient: PRINCESS CANTU MR#: [id number] : 1995 Acct:[id number] Age/Sex: 27 / F ADM Date: 07/31/23 Loc: US Attending Dr: Willis Chen D.O. Ordering Physician: Willis Chen D.O. Date of Service: 07/31/23 Procedure(s): US OB BPP w non-stress Accession Number(s): [id number] cc: Willis Chen D.O.; Physician,Non-Staff Jake The [place] [id number] Patient Name: PRINCESS CANTU MRN: [id number] date: 1995 Sex: F Assigned Patient Location: US Current Patient Location: US Accession/Order Number: [id number] Exam Date: 07/31/2023 11:04 Report Date: 08/03/2023 [...] M.D. Signed By: 08/03/23719 DD/ 7 TD/TT: Rug Cutter Helper: JOSY HealthcareRadiology Study observation (narrative)NOMS HealthcareUS OB BPP W NON-STRESSOrdered By: Radiologist Radiology on 69-25-9653NXJP [facility] Work Phone: US OB BPP W NON-STRESSon 76-15-0796[place]ym[place], [place] [address] Ultrasound Report Signed Patient: PRINCESS CANTU MR#: [id number] : 1995 Acct:[id number] Age/Sex: 27 / F ADM Date: 07/24/23 Loc: US Attending Dr: Willis Chen D.O. Ordering Physician: Willis Chen D.O. Date of Service: 07/24/23 Procedure(s): US OB BPP w non-stress Accession Number(s): [id number] cc: Willis Chen D.O.; Physician,Non-Staff M.DLima [facility] [place] [id number] Patient Name: PRINCESS CANTU MRN: [id number]:[id number] date: 1995 Sex: F Assigned Patient Location: [facility] Current Patient Location: Accession/Order Number: [id number] Exam Date: 07/24/2023 08:19 Report Date: 07/26/2023 [...] M.D. Signed By: 07/26/23711 DD/ 8 TD/TT: Rug Cutter Helper:RAYNAadiologchristina, Radiologist, MD - 09/22/2023 [place] [address] Ultrasound Report Signed Patient: PRINCESS CANTU MR#: [id number] : 1995 Acct:[id number] Age/Sex: 27 / F ADM Date: 07/24/23 Loc: US Attending Dr: Willis Chen D.O. Ordering Physician: Willis Chen D.O. Date of Service: 07/24/23 Procedure(s): US OB BPP w non-stress Accession Number(s): [id number] cc: Willis Chen D.O.; Physician,Non-Staff M.No [facility] [place] [id number] Patient Name: PRINCESS CANTU MRN: [id number] date: 1995 Sex: F Assigned Patient Location: [facility] Current Patient Location: Accession/Order Number: [id number] Exam Date: 07/24/2023 08:19 Report Date: 07/26/2023 [...] M.D. Signed By: 07/26/23711 DD/ 8 TD/TT: Rug Cutter Helper: JOSY HealthcareRadiology Study observation (narrative)NOMS HealthcareUS OB BPP W NON-STRESSOrdered By: Radiologist Radiology on 62-34-2852HTKX [facility] Work Phone: US OB BPP W NON-STRESSon 14-26-9233[place]gc[place], [place] [address] Ultrasound Report Signed Patient: PRINCESS CANTU MR#: [id number] : 1995 Acct:[id number] Age/Sex: 27 / F ADM Date: 07/17/23 Loc: US Attending Dr: Willis Chen D.O. Ordering Physician: Willis Chen D.O. Date of Service: 07/17/23 Procedure(s): US OB BPP w non-stress Accession Number(s): [id number] cc: Willis Chen D.O.; Physician,Non-Staff M.DLima The [place] [address] Patient Name: PRINCESS CANTU MRN: [id number] date: 1995 Sex: F Assigned Patient Location: US Current Patient Location: Accession/Order Number: [id number] Exam Date: 07/17/2023 11:20 Report Date: 07/20/2023 [...] M.D. Signed By: 07/20/23713 DD/ 0 TD/TT: Rug Cutter Helper:TBHRadiology, Radiologist, - 09/22/2023 [place] [address] Ultrasound Report Signed Patient: PRINCESS CANTU MR#: [id number] : 1995 Acct:[id number] Age/Sex: 27 / F ADM Date: 07/17/23 Loc: US Attending Dr: Willis Chen D.O. Ordering Physician: Willis Chen D.O. Date of Service: 07/17/23 Procedure(s): US OB BPP w non-stress Accession Number(s): [id number] cc: Willis Chen D.O.; Physician,Non-Staff Jake [facility] [place] [id number] Patient Name: PRINCESS CANTU MRN: [id number] date: 1995 Sex: F Assigned Patient Location: US Current Patient Location: Accession/Order Number: [id number] Exam Date: 07/17/2023 11:20 Report Date: 07/20/2023 [...] M.D. Signed By: 07/20/23713 DD/ 0 TD/TT: Rug Cutter Helper: NOMS HealthcareRadiology Study observation (narrative)NOMS HealthcareUS OB BPP W NON-STRESSOrdered By: Radiologist Radiology on 43-85-2558RCJI Healthcare Work Phone: US OB BPP W NON-STRESSon [phone], [place] [address] Ultrasound Report Signed Patient: PRINCESS CANTU MR#: [id number] : 1995 Acct:[id number] Age/Sex: 27 / F ADM Date: 07/10/23 Loc: FBCO Attending Dr: Willis Chen D.O. Ordering Physician: Willis Chen D.O. Date of Service: 07/10/23 Procedure(s): US OB BPP w non-stress Accession Number(s): [id number] cc: Willis Chen D.O.; Physician,Non-Staff M.No [facility] [place] [id number] Patient Name: PRINCESS CANTU MRN: [facility]:[id number] date: 1995 Sex: F Assigned Patient Location: [facility] Current Patient Location: Accession/Order Number: [id number] Exam Date: 07/10/2023 14:31 Report Date: 07/11/2023 [...] Draper M.D. Signed By: 07/11/230 DD/ TD/TT: Rug Cutter Helper:TBHRadiology, Radiologist, MD - 07/11/2023 [place] [address] Ultrasound Report Signed Patient: PRINCESS CANTU MR#: [id number] : 1995 Acct:[id number] Age/Sex: 27 / F ADM Date: 07/10/23 Loc: FBCO Attending Dr: Willis Chen D.O. Ordering Physician: Willis Chen D.O. Date of Service: 07/10/23 Procedure(s): US OB BPP w non-stress Accession Number(s): [id number] cc: Willis Chen D.O.; Physician,Non-Staff Jake [facility] [place] [id number] Patient Name: PRINCESS CANTU MRN: [facility]:[id number] date: 1995 Sex: F Assigned Patient Location: [facility] Current Patient Location: Accession/Order Number: [id number] Exam Date: 07/10/2023 14:31 Report Date: 07/11/2023 [...] M.D. Signed By: 07/11/23 0020 DD/ TD/TT: Rug Cutter Helper: JOSY HealthcareRadiology Study observation (narrative)NOMS HealthcareUS OB BPP W NON-STRESSOrdered By: Radiologist Radiology on 64-69-9266IXPQ Healthcare Work Phone: US OB GROWTHon [phone], [place] [address] Ultrasound Report Signed Patient: PRINCESS CANTU MR#: [id number] : 1995 Acct:[id number] Age/Sex: 27 / F ADM Date: 07/10/23 Loc: FBCO Attending Dr: Willis Chen D.O. Ordering Physician: Willis Chen D.O. Date of Service: 07/10/23 Procedure(s): US OB growth Accession Number(s): [id number] cc: Willis Chen D.O.; Physician,Non-Staff Jake The [address] [address] Patient Name: PRINCESS CANTU MRN: [id number] date: 1995 Sex: F Assigned Patient Location: [facility] Current Patient Location: [facility] Accession/Order Number: [id number] Exam Date: 07/10/2023 14:31 Report Date: 07/11/2023 [...] Draper M.D. Signed By: 07/11/2349 DD/ TD/TT: Rug Cutter Helper:LIZETHHRadiology, Radiologist, MD - 09/22/2023 [place] [address] Ultrasound Report Signed Patient: PRINCESS CANTU MR#: [id number] : 1995 Acct:[id number] Age/Sex: 27 / F ADM Date: 07/10/23 Loc: FBCO Attending Dr: Willis Chen D.O. Ordering Physician: Willis Chen D.O. Date of Service: 07/10/23 Procedure(s): US OB growth Accession Number(s): [id number] cc: Willis Chen D.O.; Physician,Non-Staff Jake [facility] [place] [id number] Patient Name: PRINCESS CANTU MRN: [facility]H:[id number] date: 1995 Sex: F Assigned Patient Location: [facility] Current Patient Location: [facility] Accession/Order Number: [id number] Exam Date: 07/10/2023 14:31 Report Date: 07/11/2023 [...] Draper M.D. Signed By: 07/11/2349 DD/ TD/TT: Rug Cutter Helper: JOSY HealthcareRadiology Study observation (narrative)[facility] HospitalUS OB GROWTHOrdered By: Radiologist Radiology on 79-16-1841GQMZ Healthcare Work Phone: DHEA SERUMon 24-81-5487Ttburyfwuwfjxdbujdutrz (DHEA) 656 ng/zAYdzjla44-414UouGreene Memorial HospitalComment on above:Performed By: #### DHEA. #### [facility] [address] [place] [address] Dr. Vish Mai-MULLERIAN HORMONEon 48-39-8605Ahlv-Mullerian Hormone (AMH) 4.47 ng/mLNormalGreene Memorial HospitalComment on above:Result Comment: For assays employing antibodies, the possibility exists for interference by heterophile antibodies in the samples.1 1.Favio Correia. Interferences in Immunoassays - still a threat. Clin. Chem. 2000; 46: 9321-1542. This test was developed and its performance characteristics determined by [employer]. It has not been cleared or approved by the Food and Drug Administration. Reference Range: Females 26 - 30y: 1.03 - 11.10 Median 4.20 AMH concentrations of >= 1.06 ng/mL is correlated with a better response to ovarian stimulation, produced more retrievable oocytes and higher odds of live according to Ryaner et al. Fertility and Sterility. 2010: 94:7080-2398. The current AMH test method correlates with [...] AMH-secreting ovarian tumor.Performed By: #### LBCLH #### [facility] [address] [place] [address] Dr. Vish Olivas-SULFATEon 54-93-4017NKUV-Nqgjvxi164.0 ug/dLCritically high 84.8-378.0Greene Memorial HospitalComment on above:Performed By: #### LBCLH #### [facility] [address] [place] [address] Dr. Vish CardonaTRADIOLon 30-83-6743Rbzacwlrb48.3 pg/mLNormalGreene Memorial HospitalComment on above:Result Comment: Adult Female: Follicular phase 12.5 - 166.0 Ovulation phase 85.8 - 498.0 Luteal phase 43.8 - 211.0 Postmenopausal <6.0 - 54.7 1st trimester 215.0 - >4300.0 Ele ECLIA methodologyPerformed By: #### ESTRADI #### [facility] [address] [place] [address] Dr. Vish Monroy 83-98-8013CQG3.1 mIU/mLNormalGreene Memorial HospitalComment on above:Result Comment: Adult Female: Follicular phase 3.5 - 12.5 Ovulation phase 4.7 - 21.5 Luteal phase 1.7 - 7.7 Postmenopausal 25.8 - 134.8Performed By: #### LBCFSH #### [facility] [address] [place] [address] Dr. Vish BrownLUTEINIZING HORMONE (LH)on 51-95-9356TP4.5 mIU/mLNormalGreene Memorial HospitalComment on above:Result Comment: Adult Female: Follicular phase 2.4 - 12.6 Ovulation phase 14.0 - 95.6 Luteal phase 1.0 - 11.4 Postmenopausal 7.7 - 58.5Performed By: #### LBCLH #### [facility] [address] [place] [address] Dr. Vish BrownPROGESTERONEon 54-83-5470Xqmiufjsouzz9.8 ng/mLNormalGreene Memorial HospitalComment on above:Result Comment: Follicular phase 0.1 - 0.9 Luteal phase 1.8 - 23.9 Ovulation phase 0.1 - 12.0 First trimester 11.0 - 44.3 Second trimester 25.4 - 83.3 Third trimester 58.7 - 214.0 Postmenopausal 0.0 - 0.1Performed By: #### PROGES #### [facility] [address] [place] [address] Dr. Vish Carrillo AUTO DIFFon 51-22-1321XJAE #0.0 103/ulNormal0.0-0.1Greene Memorial HospitalComment on above:Performed By: #### LBCLH #### [facility] [address] [place] [address] Dr. Vish BrownBasophils/100 WBC (Bld)0.5 %Normal0.2-2.0[facility] Comment on above:Performed By: #### LBCLH #### [facility] [address] [place] [address] Dr. Vish Layton #0.3 103/ulNormal0.0-0.7The [facility]-FairhillComment on above: Performed By: #### LBCLH #### [facility] [address] [place] [address] Dr. Vish Haqosinophils/100 WBC (Bld)4.0 %Normal0.9-7.0[facility] Comment on above:Performed By: #### LBCLH #### [facility] [address] [place] [address] Dr. Yilan ChangErythrocyte distribution width (RBC) [Ratio]12.0 %Icnrou12.0-15.0 The [facility]-FairhillComment on above:Performed By: #### LBCLH #### [facility] [address] [place] [address] Dr. Vish BrownHematocrit (Bld) [Volume fraction]39.1 %Zitwrq20.0-48.0The [facility]-FairhillComment on above:Performed By: #### LBCLH #### [facility] [address] [place] [address] Dr. Vish BrownHemoglobin (Bld) [Mass/Vol]13.0 g/vNJuyyem19.0-16.0The [facility]-FairhillComment on above:Performed By: #### LBCLH #### [facility] [address] [place] [address] Dr. Vish Lawson #0.02 10e3/ulNormal0.00-0.03The [facility]Comselect [facility] on above:Performed By: #### LBCLH #### [facility] [address] [place] [address] Dr. Vish Lawson %0.3 %Normal0.0-0.5The [facility]Comselect [facility] on above: Performed By: #### LBCLH #### [facility] [address] [place] [address] Dr. Vish AvilezH #2.5 103/ulNormal1.2-3.8The [facility]Comselect [facility] on above:Performed By: #### LBCLH #### [facility] [address] [place] [address] Dr. Vish Jaffemphocytes/100 WBC (Bld)32.4 %Ssgksc57.5-60.0The [facility]-FairhillComment on above:Performed By: #### LBCLH #### [facility] [address] [place] [address] Dr. Vish BrownMANUAL DIFF REQNONormalThe [facility]-FairhillComment on above: Performed By: #### LBCLH #### [facility] [address] [place] [address] Dr. Vish Smith (RBC) [Entitic mass]29.9 wbAikamj05.7-34.0The [facility]-FairhillComment on above:Performed By: #### LBCLH #### [facility] [address] [place] [address] Dr. Vish Smith (RBC) [Mass/Vol]33.2 g/tFMflluw92.9-35.2The [facility]entown HospitalComment on above:Performed By: #### LBCLH #### [facility] [address] [place] [address] Dr. Vish Smith (RBC) [Entitic vol]89.9 cADvlwmi74.0-99.0The [facility]hillComment on above:Performed By: #### LBCLH #### [facility] [address] [place] [address] Dr. Vish Power #0.6 103/ulNormal0.3-0.8The [facility]-FairhillComment on above:Performed By: #### LBCL #### [facility] [address] [place] [address] Dr. Vish Vigilocytes/100 WBC (Bld)7.4 %Normal1.7-12.0The [facility] Comment on above:Performed By: #### LBCL #### [facility] [address] [place] [address] Dr. Vish Pulliam #4.3 103/ulNormal1.4-6.5The [facility]-FairhillComment on above:Performed By: #### LBCLH #### [facility] [address] [place] [address] Dr. Vish Lamarutrophils/100 WBC (Bld)55.4 %Xuhpzs33.0-75.0The [facility]-FairhillComment on above:Performed By: #### LBCLH #### [facility] [address] [place] [address] Dr. Vish Madisonlet mean volume (Bld) [Entitic vol]9.0 fLCritically low 9.5-13.5The [facility]hillComment on above:Performed By: #### LBCLH #### [facility] [address] [place] [address] Dr. Vish BrownPLT277 103/qdSeqkdo583-448Tcp [facility]-FairhillComment on above: Performed By: #### LBCLH #### [facility] [address] [place] [address] Dr. Vish BrownRBC4.35 106/ulNormal4.20-5.40The [facility]-FairhillComment on above:Performed By: #### LBCLH #### [facility] [address] [place] [address] Dr. Vish BrownWBC7.7 103/ulNormal4.0-11.0The [facility]hillComment on above: Performed By: #### LBCLH #### [facility] [address] [place] [address] Dr. Vish BronwFRIRENA T4on 41-13-0309Azrj T4 [Mass/Vol]1.08 ng/dLNormal0.76-1.46 The [facility]hillComment on above:Performed By: #### FT4 #### [facility] [address] [place] [address] Dr. Vish BrownGLYCOHEMOGLOBIN A1Con 85-67-8988CLQ RECOMMENDATIONSEE BELOWNormal The [facility]FairhillComselect specialty hospital[facility] on above:Result Comment: ADA RECOMMENDED LIMIT 4.0 - 6.0 ADA THERAPEUTIC TARGET < 7.0 ACTION SUGGESTED > 7.0Performed By: #### A1C #### [facility] [address] [place] [address] Dr. Vish BrownGlucose [Mass/Vol]94 mg/dLNormalThe [facility]hillComselect [facility] on above:Performed By: #### A1C #### [facility] [address] [place] [address] Dr. Vish BrownHbA1c (Bld) [Mass fraction]4.9 %Normal4.5-6.2The [facility]FairhillComment on above:Performed By: #### A1C #### [facility] [address] [place] [address] Dr. Vish BrownPREBhargav QUANT HCGon 50-89-3607RHD QUANT<1NormalThe [facility] Comment on above:Performed By: #### PREGQNT, TSH #### [facility] [address] [place] [address] Dr. Vish WesleyG RANGESGerman HospitalComment on above: Result Comment: 5-50 0.2-1 WEEK 50-500 1-2 WEEKS 100-5,000 2-3 WEEKS 500-10,000 3-4 WEEKS 1,000-50,000 4-5 WEEKS 10,000-100,000 5-6 WEEKS 15,000-200,000 6-8 WEEKS 10,000-100,000 2-3 MONTHSPerformed By: #### PREGQNT, TSH #### [facility] [address] [place] [address] Dr. Vish Boo 37-42-3369NFF3.030 uIU/mLNormal0.358-3.740Greene Memorial HospitalComment on above:Performed By: #### PREGQNT, TSH #### [facility] [address] [place] [address] Dr. Vish Massey 19-49 Yearson 66-38-9196SH 19-49 YearsDiagnoses/Problems Health Maintenance/Risks Encounter for preventive [...] Services - Lab To Draw (Blood Test); Due:[id number];Ordered; For:Benign essential hypertension; Ordered By:Koffi Uriarte; Provider [...] alcohol (more content not included)...NormalUH TouchworksTobacco Screening.on 86-21-4945Ukgix depression screening vmnpbhtqryDsIH-JYBH-Odjg [place] Work Phone: Fall risk assessmenta) No falls within the last year ZR-PSGW-HegcLeapfrog Online Work Phone: Tobacco use status CPHSb) BpKD-IYBU-PkguLeapfrog Online Work Phone: b-HCG SerPl-aCncon 63-04-0886IUF.beta subunit Qn m[IU]/mLNormal<5.0[facility] on above:Order Comment: Specimen Type: BLOOD SPECIMENOrdering Facility: [facility] Address:[address] [place], [place] [address]Result Comment: Negative Performed By: #### GCCT #### [place] [address] MBYIXROVW VAGINOSIS AMPLIFICATIONon 43-70-7169Ydidzlsofjacp crispatus+gasseri+jensenii + Gardnerella vaginalis + Atopobium vaginae rRNA HUMERA+probeQl (Vag fld)NegativeNormalNegative for bacterial vaginosisCFairfield Medical Center on above:Order Comment: Specimen Type: SWAB [facility] Address: [address] [place], [place] [address]Performed By: #### CVTV, BVAMP #### [facility] CLIA [id number] [address] [place], [place] [address]C. trachomatis+N. gonorrhoeae DNA HUMERA+probe Ql (Unsp spec)on 04-16-2022. trachomatis DNA HUMERA+probe Ql (Unsp spec)NegativeNormalNegative for Chlamydia trachomatis by amplificatonCFairfield Medical Center on above:Order Comment: Specimen Type: SWAB [facility] Address: [address] [place], [place] [address]Performed By: #### CVTV, BVAMP #### [facility] CLIA [id number] [address] [place] [address] OF SUDANESE. gonorrhoeae DNA HUMERA+probe Ql (Unsp spec)NegativeNormalNegative for Neisseria gonorrhoeae by amplification [facility] on above:Order Comment: Specimen Type: SWAB [facility] Address: [address] [place] [address]Performed By: #### CVTV, BVAMP #### [facility] CLIA [id number] [address] [place] [address] [place] OF AMERICACANDIDA / TRICHOMONAS AMPLIFICATIONon 21-79-7386ROTAPNT / TRICHOMONAS AMPLIFICATIONCANDIDA SPECIES GROUP RNA: Negative for Mitch species MITCH GLABRATA RNA: Negative for Mitch glabrata TRICH VAG AMPLIFICATION RNA: Negative for Trichomonas vaginalis by amplificationSamaritan Hospital on above:Performed By: #### CVTV, BVAMP #### [facility] CLIA [id number] [address] [place] [address] [place] OF AMERICACNCOon 31-57-4708UKBIBioiqx Text Letter TextNoFirelands Regional Medical Center South CampusCNOVon 35-01-1740QFFDRfakif Visit ([facility] PRINCESS CANTU ([id number]) 1995 F Date Time Provider Department 04/16/22 8:00 AM BRENDAN BLANKENSHIP [facility] During your visit today, we recorded [...] History Social History Narrative Single No pregnancies 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 IBrendan, have reviewed this information as documented for accuracy and performed all elements of history taking, and edited the record as necessary. ROS: SEE HPI PE: GENERAL: well-appearing, in no acute distress LUNGS: Normal inspiratory effort SILVERWARE WASHER: Normal external genitalia, no vaginal bleeding, small [...] Order(s):MITCH / TRICHOMONAS AMPLIFICATION [SQCVTV] Order #: [id number]. #:[id number] BACTERIAL VAGINOSIS AMPLIFICATION [SQBVAMP] Order #: [id number]. #:[id number] GC/CHLAMYDIA DNA DET [SQGCCAMP] Order #: [id number]. #:[id number] SYPHILIS TOTAL W/REFLEX [SQSYPHTX] Order #: [id number] FUTURE HIV 1 2 COMBO(AG/AB),WITH REFLEX TO DIFFERENTIATION [SQHIV12] Order #: [id number] FUTURE HEP C AB IA W/CONF SCRN [QALNFC8P] Order #: [id number] FUTURE HEP B SURF AG SCRN [SQHBSAG] Order #: [id number] FUTURE Prescriptions as of 04/16/2022 - lamoTRIgine [...] medication Encounter Status:Closed by BRENDAN BLANKENSHIP on 04/16/22NoFirelands Regional Medical Center South CampusHBV surface Ab IA Ql (S)on 36-85-1310FJQ surface Ag Ql (S)Negative NormalNegativeOhio Valley Surgical Hospital on above:Order Comment: Specimen Type: BLOOD SPECIMENOrdering Facility: [facility] Address:[address] [place], [place] [address]Performed By: #### GCCT #### [place] [phone] Ab Ser Qlon 11-72-3607KZL Ab Ql (S)NegativeNormalNegative [facility] on above:Order Comment: Specimen Type: BLOOD SPECIMEN [facility] Address: [address] [place], [place] [address]Result Comment: The result suggests no evidence of active infection with Hepatitis C virus. Should recent infection be suspected, repeat testing may be considered 4-6 weeks after this draw.Performed By: #### [id number] #### [facility] CLIA [id number] [address] [place] [address] [place] OF AMERICAHIV 1+2 Ab IA Qlon 40-01-5183WEM 1 and 2 Ab IA.rapid NomSamaritan Hospital on above:Order Comment: Specimen Type: BLOOD SPECIMENOrdering Facility: [facility] Address:[address] [place], [place] [address]Result Comment: Test not indicated.Performed By: #### GCCT #### [place] [address] UAA 1+2 Ab+HIV1 p24 Ag IA QlNon-ReactiveNormalNonreactiveOhio Valley Surgical Hospital on above:Order Comment: Specimen Type: BLOOD SPECIMENOrdering Facility: [facility] Address:[address] [place], [place] [address]Performed By: #### GCCT #### [place] [address] CNBIXXOzftvuNcgdlamgd Clinic ClevelandComment on above:Order Comment: Specimen Type: BLOOD SPECIMENOrdering Facility: [facility] Address:[address] [place], [place] [address]Result Comment: No evidence of HIV-1 or HIV-2 infection. Should recent infection be suspected, repeat testing may be considered 2-3 weeks after this draw. [place] Rev. Code 3701.243(E): This information has been [...] results or diagnoses.Performed By: #### GCCT #### [place] [address] Gddana and Treponema pallidum IgG and IgM [Interp]on 04-16-2022 SYPHILIS INTERPRETATIONCannot exclude recent Treponemal infection if specimen collected within 7-10 days after appearance of suspect lesions or 2-3 weeks after an exposure. Clinical correlation is required.NormalOhio Valley Surgical Hospital on above:Order Comment: Specimen Type: BLOOD SPECIMENOrdering Facility: [facility] Address:[address] [place], [place] [address]Performed By: #### GCCT #### [place] [phone]. pallidum IgG+IgM IA Ql (S)Non-ReactiveNormalNonreactiveOhio Valley Surgical Hospital on above:Order Comment: Specimen Type: BLOOD SPECIMENOrdering Facility: [facility] Address:[address] [place], [place] [address]Performed By: #### GCCT #### [place] [address] VLFOOEFFJKmdmeso By: SYSTEM SYSTEM on 42-36-6892TIO.beta subunit Qn1 m[IU]/mLNormal1 - 3 mIU/mLFTMC RemisolCNPNon 07-39-0448OQHOSqllxmnmm ([facility] PRINCESS CANTU ([id number]) 1995 F Date Time Provider Department 03/24/22 KAVITA SWEET [facility] During your visit today, we recorded [...] Fully Assessed Reason for Visit: Bleeding With [97284] Primary Visit Diagnosis:Bleeding in early [O20.9] Order(s):HCG QUANTITATIVE [SQHCGQT] Order #: [id number] FUTURE Prescriptions as of 03/24/2022 - metroNIDAZOLE [...] 07/04/2021 Encounter Status:Closed by BRENDAN SOUZA on 03/24/22[facility] 34-93-4701XMREGeruodydu (OBGYCC) PRINCESS CANTU ([id number]) 1995 F Date Time Provider Department 03/19/22 [place] DWYER [facility] During your visit today, we recorded [...] 07/04/2021 Encounter Status:Closed by MARY ONOFRE on 03/19/22[facility] ([facility])on 28-90-5505Hskmim-up visitProvider Impressions 1. Seizure: Stable. Last episode [...] or bowel/bladder incontinence. She was taken to [facility] in [place]. She had lab work and a CT [...] DAILY. Vitals Vital Signs Recorded: 24Dec2021 11:32AM Zrrazkdtnie30.1 F Heart Rate54 Ejghcujt906 Lkmfafyhb31 Height5 ft 9 in Eueqgq072 lb 1.6 oz BMI Islsvpvbct62.03 kg/m2 BSA Calculated2.11 Tobacco Useb) No Fall Screeninga) No falls within the last year O2 Qrevtuaujm713, RA Physical Exam Constitutional: General appearance: no [...] 2021 11:37AM EST (Author) Normal TouchworksTobacco Screening.on 29-16-2267Vxnu risk assessmenta) No falls within the last yrvgQL-Xzdqptbhx-Awwaioas SJW DO Work Phone: Tobacco use status CPHSb) AoJX-Jztsexdgk-Lykxhexb SJW DO Work Phone: Office Visit (Primary [...] Known Drug Allergies Vitals Vital Signs Recorded: 38Nge6194 01:08PM Temperature: 97 F Heart Rate: 70 [...] 17 2021 1:34PM EST (Author)NormalUH TouchworksTobacco Screening.on 32-82-6603Cqmkb depression screening tgzarnwvxpGyJZ-UPLD-Vqmb [place] Work Phone: Fall risk assessmenta) No falls within the last year WP-DTZF-LatkLeapfrog Online Work Phone: Tobacco use status CPHSb) GcVB-EZZK-PcpvLeapfrog Online Work Phone: bact Vag Amplificationon 71-00-7636Svzo Vag AmplificationPositiveCritically abnormalNegative for bacterial vaginosis [facility] GeneralComment on above:Performed By: #### GCCT #### [facility] [address] [place], [place] [address] KCMPlg 55-80-5359GZUIMjbajk Visit ([facility] PRINCESS CANTU ([id number]) 1995 F Date Time Provider Department 09/09/21 [...] History Social History Narrative Single No pregnancies 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 Portions of this record were documented by the Precision Devices Inspector/Tester. I, Brendan Blankenship, have reviewed this information as documented for accuracy and performed all elements of history taking, and edited the record as necessary. 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 [...] Allergies) Date Reviewed: 09/09/2021 Reviewed by: Brendan lBankenship PA-C - Fully Assessed Reason for Visit: Vaginal Discharge [4161] Primary Visit Diagnosis:Vaginal discharge [N89.8] Order(s):MITCH / TRICHOMONAS AMPLIFICATION [SQCVTV] Order #: [id number] BACTERIAL VAGINOSIS AMPLIFICATION [SQBVAMP] Order #: [id number] GC/CHLAMYDIA DNA DET [SQGCCAMP] Order #: [id number] metroNIDAZOLE (FLAGYL) 500 mg tabletTake 1 tablet [...] Text Encounter Status:Closed (more content not included)...NormalCleveland Clinic Akron GeneralCandida Trich Amplon 63-26-0798Gqabjjk glabrata RNANegativeNormal NegativeCleveland Clinic Akron GeneralComment on above:Performed By: #### GCCT #### [place] [address] Vctzfqq sp group RNANegativeNormalNegativeCleveland Clinic [facility]ron General Comment on above:Performed By: #### GCCT #### [place] [address] Krhpefxpnes RNANegativeNormalCKindred HealthcareComment on above:Performed By: #### GCCT #### [place] [phone]/Chlamydia Amplifon 47-72-5593Qmpzqpfyh AmplifNegativeNormal [facility] GeneralComment on above:Performed By: #### GCCT #### [place] [address] GW AmplificationNegativeNormalCKindred HealthcareComment on above:Performed By: #### GCCT #### [place] [phone]/Chlam Amp SourceCervixNormalClevelAtrium Health KannapolisComment on above:Performed By: #### GCCT #### [facility] [place] [id number] [phone] Vag Amplificationon 21-73-7793Zsgo Vag AmplificationNegative NormalNegative for bacterial vaginosisCKindred HealthcareComment on above:Performed By: #### CVTV, BVAMP #### [facility] CLIA [id number] [address] [place] [address] OF [facility], INCCNOVon 14-01-8002FIIVHsmkht Visit (OBGYCC) PRINCESS CANTU ([id number]) 1995 F [facility] Date Time Provider Department 07/04/21 4:00 PM [facility] During your visit today, we recorded the following information about you: Pulse Blood pressure Weight Height 74/minute 131/86 95.7 kg 1.727 m Last Period 06/07/21 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 APRN.CLASS B DRIVER 07/04/2021 4:39 PM Signed Princess is a [...] Ectopic0 Multiple0 Live Births0 Comment: 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 Some of these tests may be ordered or performed by your primary care doctor. Pap test screening The pap test loo (more content not included)...NormalC[facility] Clinic [facility] General Mitch Trich Amplon 13-74-7693Icboiwv glabrata RNANegativeNormalNegative [facility] GeneralComment on above:Performed By: #### CVTV, BVAMP #### [facility] CLIA [id number] [address] [place] [address] [place] OF AMERICACandida sp group RNANegative NormalNegativeCleveland Clinic Akron GeneralComment on above:Performed By: #### CVTV, BVAMP #### [facility] CLIA [id number] [address] [place] [address] [place] OF AMERICATrichomonas RNANegative NormalCleveland Clinic Akron GeneralComment on above:Performed By: #### CVTV, BVAMP #### [facility] CLIA [id number] [address] [place] [address] STATES OF AMERICAGC/Chlamydia Amplifon 81-36-7910Rprsdnmee AmplifNegativeNormalCKindred HealthcareComment on above:Performed By: #### GCCT #### [place] [phone] AmplificationNegativeNormalCKindred HealthcareComment on above:Performed By: #### GCCT #### [place] [phone]/Chlam Amp SourceCervixNormalCKindred HealthcareComment on above:Performed By: #### GCCT #### [place] [phone] Screening.on 28-35-1144Hwdx risk assessmenta) No falls within the last fonbUK-Dqiyqehli-Xzsdajxn [employer] Work Phone: Tobacco use status CPHSb) EkZE-Sqqarticj-Jouijdni [employer] Work Phone: GC + Chlamydia By Amplified Detectionon 05-20-2021. trachomatis rRNA HUMERA+probe Ql (Unsp spec)XfzzijbwNwziwlgqNB-DPPK-Uofp [place] Work Phone: comment on above:The APTIMA Combo 2 assay is FDA- approved for Chlamydia trachomatis and Neisseria gonorrhoeae testing on female endocervical and vaginal swabs, ThinPrep liquid pap samples, male urine samples and urethral swabs. Performance characteristics for Chlamydia trachomatis and Neisseria gonorrhoeae testing on specific vdq-MCO-edxctmdw sample types (female urine samples) have been validated by [facility]. This laboratory is certified by CLIA to perform high complexity evie ting. Samples from all other sites are not validated for this method.N. gonorrhoeae rRNA HUMERA+probe Ql (Unsp spec)OfpftoboVnqsryrvDE-AAQS-Giyf [place] Work Phone: comment on above:SOURCE: Urine The APTIMA Combo 2 assay is FDA-approved for Chlamydia trachomatis and Neisseria gonorrhoeae testing on female endocervical and vaginal swabs, ThinPrep liquid pap samples, male urine samples and urethral swabs. Performance characteristics for Chlamydia trachomatis and Neisseria gonorrhoeae testing on specific nbt-UNU-dqnicqfv sample types (female urine samples) have been validated by [facility]. This laboratory is certified by CLIA to perform high complexity testing. Samples from all other sites are not validated for this method.TSHon 74-55-1107ROR Qn2.30 m[IU]/LNormal0.44 - 3.98St. [facility] Center SouthComment on above:Result Comment: TSH testing is performed using different testing methodology at [facility] than at other legacy [facility]. Direct result comparisons should only be made within the same method.Performed By: #### TSH2 #### [address] [place], [place] [address]TCW - Thyroid Stimulating Hormone, Serumon 11-68-7450NMB Qn 2.30 m[IU]/LSee LoxlwMM-PZEX-[place]i [place] Work Phone: comment on above:Reference Range: 0.44 - 3.98 TSH testing is performed using different testing methodology at [facility] than at other legacy [facility]. Direct result comparisons should only be made within the same method.Tobacco Screening.on 81-31-2495Jnnn risk assessment a) No falls within the last qafmEL-IKQX-Isvg [place] Work Phone: Tobacco use status CPHSb) UgBB-GRSF-Owwa [place] Work Phone: cBCon 51-45-2644Cwhrsnyjusn distribution width (RBC) [Ratio]13.2 %Oyogok06.5 - 14.5St. [facility] Center SouthComment on above:Performed By: #### CBC #### [address] [place], [place] [address]Ebfipdzyep (Bld) [Volume fraction]39.5 %Zivpuo91.0 - 46.0St[facility] SouthComment on above:Performed By: #### CBC #### [address] [address]Ajenvfyfss (Bld) [Mass/Vol]13.0 g/tWAnmycp02.0 - 16.0St. [facility] Center SouthComment on above:Performed By: #### CBC #### [address] [address]XLWC (RBC) [Mass/Vol]32.9 g/jEFmxztw61.0 - 36.0St[facility] SouthComment on above:Performed By: #### CBC #### [address] [address]ILJ (RBC) [Entitic vol]91 xVTbnkxb98 - 100St. [facility] Center SouthComment on above:Performed By: #### CBC #### [address] [address]IKYOTBXZY RBC0.0 /100 WBCNormal0.0 - 0.0St. [facility] SouthComment on above:Performed By: #### CBC #### [address] [address]Grsdetohg (Bld) [#/Vol]235 10*3/bOTdfqpr297 - 450St. [facility] Center SouthComment on above:Performed By: #### CBC #### [address] [address]GSU5.33 x10E12/LNormal4.00 - 5.20[facility] Comment on above:Performed By: #### CBC #### [address] [address]YMT (Bld) [#/Vol]5.8 10*3/uLNormal4.4 - 11.3St[facility] SouthComment on above:Performed By: #### CBC #### [address] [address]IFVKMCQAYTXUQ PANELon 83-92-2832Dmqumoq [Mass/Vol]4.7 g/dL Normal3.4 - 5.0St[facility] SouthComment on above:Performed By: #### CMP #### [address] [place], [place] [address]MOZ [Catalytic activity/Vol]53 U/AYdweyj80 - 110St. [facility] SouthComment on above:Performed By: #### CMP #### [address] [place], [place] [address]JNX [Catalytic activity/Vol]41 U/LNormal7 - 45St. [facility] Center SouthComment on above:Result Comment: Patients treated with Sulfasalazine may generate falsely decreased results for ALT.Performed By: #### CMP #### [address] [address]Ukayk gap [Moles/Vol]10 mmol/HHibxxg76 - 20St[facility] SouthComment on above:Performed By: #### CMP #### [address] [address]VUV [Catalytic activity/Vol]27 U/LNormal9 - 39St. [facility] SouthComment on above:Performed By: #### CMP #### [address] [address]Slfkgwucu [Mass/Vol]0.6 mg/dLNormal0.0 - 1.2St[facility] SouthComment on above:Performed By: #### CMP #### [address] [address]Xavnzgq [Mass/Vol]9.5 mg/dLNormal8.6 - 10.3St[facility] SouthComment on above:Performed By: #### CMP #### [address] [address]Pjxthpeq [Moles/Vol]105 mmol/UPszfkz23 - 107St. [facility] SouthComment on above:Performed By: #### CMP #### [address] [address]Vmwvqjesyp [Mass/Vol]0.93 mg/dLNormal0.50 - 1.05St[facility] SouthComment on above:Performed By: #### CMP #### [address] [place], [place] [address]MPJ-YHQGDFB AM.>60Normal>60St. [facility] SouthComment on above:Result Comment: CALCULATIONS OF ESTIMATED GFR ARE PERFORMED USING THE MDRD STUDY EQUATION FOR THE IDMS-TRACEABLE CREATININE METHODS. CLIN CHEM 2007;53:766-72Performed By: #### CMP #### [address] [place], [place] [address]YLC-CYB AM.>60Normal>60St. [facility] SouthComment on above:Performed By: #### CMP #### [address] [place], [place] [address]Dbnsddx [Mass/Vol]94 mg/fGHfmgsq47 - 99[facility] Comment on above:Performed By: #### CMP #### [address] [place], [place] [address]CHF4 (Bld) [Moles/Vol]28 mmol/DEbrdgx12 - 32St. [facility] Center SouthComment on above:Performed By: #### CMP #### [address] [place], [place] [address]Vmuksxeue [Moles/Vol]4.4 mmol/LNormal3.5 - 5.3St. [facility] SouthComment on above:Performed By: #### CMP #### [address] [place], [place] [address]Xftqnmt [Mass/Vol]7.3 g/dLNormal6.4 - 8.2St. [facility] SouthComment on above:Performed By: #### CMP #### [address] [place], [place] [address]Zkwluy [Moles/Vol]139 mmol/FFavmbb727 - 145St. [facility] SouthComment on above:Performed By: #### CMP #### [address] [place], [place] [address]Rzuo nitrogen [Mass/Vol]13 mg/dLNormal6 - 23St. [facility] SouthComment on above:Performed By: #### CMP #### [place] [address] [address]. [place], [place] [address]Bkhllyxotckk 44-30-8005Najmaykjjo (Bld) [Volume fraction]39.5 %See IewqqVL-Tkozblyna-Memssztl SJW DO Work Phone: Comment on above:Reference Range: 36.0 - 46.0 Hemoglobin (Bld) [Mass/Vol]13.0 g/dLSee FffxbVV-Cavopegjo-Zqlfwrxz SJW DO Work Phone: Comment on above:Reference Range: 12.0 - 16.0MCV (RBC) [Entitic vol]91 fL80 - 041EL-Ugwwjjxkt-Jyjvybhq SJW DO Work Phone: Platelets (Bld) [#/Vol]235 {x10E9/L}150 - 450 CD-Hidjmxdyn-CpvkzmeiBeth [facility]acon[facility] Medical [facility] DO Work Phone: RBC (Bld) [#/Vol]4.33 {x10E12/L}See Below LH-Tneqcnsvg-LnhiuwsfBeth [facility]acon[facility] DO Work Phone: Comment on above:Reference Range: 4.00 - 5.20WBC (Bld) [#/Vol]5.8 {x10E9/L}4.4 - 11.1ZU-Iylzdebsr-Vwkwylju SJW DO Work Phone: WBC (Bld) [#/Vol]0.0 {/100_WBC}0.0 - 0.0 RZ-Qpegkexyk-JvbeyxtfBeth Israel Deaconess Medical Center DO Work Phone: LAMOTRIGINE- LAMICTALon 06-44-1447QXKIMQHIGNQ- LAMICTAL6.4 ug/mLNormal2.5 - 15.0[facility] – TulsaComment on above: Performed By: #### LAMOT #### [facility] [address] [address] [place], [place] [address]Gziivmdjgef Level, Serumon 62-76-7601Vbyfcpecqie [Mass/Vol] 6.4 ug/mL2.5 - 15.2HP-Lpbpmvjjt-Jjuigfft SJW DO Work Phone: [phone] Panelon 38-75-9924YEU [Catalytic activity/Vol]53 U/L33 - 235JP-Icsdpyoxt-Wykicsec SJW DO Work Phone: [phone] gap [Moles/Vol]10 mmol/L10 - 20 CT-Xnrjebsyv-Mywelbsd SJW DO Work Phone: [phone] [Mass/Vol]0.6 mg/dL0.0 - 1.2 IZ-Uqkmivjrf-Hvazrnki SJW DO Work Phone: [phone] [Mass/Vol]9.5 mg/dL8.6 - 10.3 RZ-Opouxngys-Yrsvmwrz SJW DO Work Phone: [phone] [Moles/Vol]105 mmol/L98 - 107 CB-Jczdnuqcs-Wvdvaqdr SJW DO Work Phone: [phone] [Moles/Vol]28 mmol/L21 - 89HD-Nbwxrqami-Pchzqchn SJW DO Work Phone: [phone] [Mass/Vol]0.93 mg/dLSee Below FP-Mxmpmwgwb-Pazkryby SJW DO Work Phone: Comment on above:Reference Range: 0.50 - 1.05Glucose [Mass/Vol]94 mg/dL74 - 70OP-Ujkwttowx-Bwdnnxcr SJW DO Work Phone: [phone] [Moles/Vol]4.4 mmol/L3.5 - 5.3 GS-Wmispjgxi-Ngblzity SJW DO Work Phone: [phone] [Mass/Vol]7.3 g/dL6.4 - 8.2 UV-Imzrboveu-Usnymbmh SJW DO Work Phone: [phone] [Moles/Vol]139 mmol/L136 - 145 XK-Fwbmulfvj-Ddnppair SJW DO Work Phone: [phone] nitrogen [Mass/Vol]13 mg/dL6 - 23 LY-Blogrzcyj-Eppnuxdh SJW DO Work Phone: [phone] 64-35-5807Qcogupl BCP dye [Mass/Vol]4.7 g/dL 3.4 - 5.7PR-Djkemcwkh-AjufpkqkMer[facility] DO Work Phone: ALT With P-5'-P [Catalytic activity/Vol]41 U/L7 - 45 [facility] DO Work Phone: Comment on above:Patients treated with Sulfasalazine may generate falsely decreased results for ALT.AST With P-5'-P [Catalytic activity/Vol]27 U/L9 - 08IL-Kyoenfdlo-WrzdonkjMercy Hospital [place] DO Work Phone: Erythrocyte distribution width (RBC) [Ratio]13.2 %See NntrxCV-Bktnplhww-Uuflomrd SJW DO Work Phone: Comment on above:Reference Range: 11.5 - 14.5MCHC (RBC) [Mass/Vol]32.9 g/dLSee FxyfvVQ-Nrgvtazog-Jvkjeewr SJW DO Work Phone: Comment on above:Reference Range: 32.0 - 36.0>60>60 [facility] DO Work Phone: Comment on above:CALCULATIONS OF ESTIMATED GFR ARE PERFORMED USING THE MDRD STUDY EQUATION FOR THE IDMS-TRACEABLE CREATININE METHODS. CLIN CHEM 2007;53:766-72MRI BRAIN W WO CONTRASTon 08-37-0542Zxsin are no acute intracranial changes, no evidence of ischemia or hemorrhage. There are no regions of signal abnormality. There are no areas of abnormal enhancement after contrast administration.[facility], KYEXAMINATION: MRI BRAIN W WO CONTRAST CLINICAL [...] limits. The calvarium and soft tissues are unremarkable.[facility]- [place], [place], [facility] Incoming Radiant Results From Tyros/Palingen - 05/09/2020 3:02 PM EDT EXAMINATION: MRI [...] no areas of abnormal enhancement after contrast administration.[facility], [facility] BRAIN W WO CONTRASTEXAMINATION: MRI BRAIN W [...] Signed by: David Winter MD 05/09/20 Final resultNormMcKee Medical Center With Platelet and Differentialon 12-21-9077Ihdnjdqlz (Bld) [#/Vol]0.1 10*3/uLNormal0.0-0.2Mcleveland clinic [facility] hospitaly [facility] Cancer CenterComment on above:Performed By: #### CBCWD #### [facility] [address] [place] [address] Kudaltros/100 WBC (Bld)0.4 %NormalJoint Township District Memorial HospitalComment on above:Performed By: #### CBCWD #### [facility] [address] [place] [address] Lskarhzejvu (Bld) [#/Vol]0.5 10*3/uLNormal0.0-0.7Joint [facility] District Memorial HospitalComment on above:Performed By: #### CBCWD #### [facility] [address] [place] [address] Aokyuwjxkob/100 WBC (Bld)4.2 %[facility] HospitalComment on above:Performed By: #### CBCWD #### [facility] [address] [place] [address] Bkuwvdmoivs distribution width (RBC) [Ratio]12.5 %Euwecm42.5-14.5 [facility] Memorial HospitalComment on above:Performed By: #### CBCWD #### [facility] [address] [place] [address] Lbtcixblqn (Bld) [Volume fraction]39.4 %Tctjhs17.0-47.0[facility] Memorial HospitalComment on above:Performed By: #### CBCWD #### [facility] [address] [place] [address] Xxkharuigt (Bld) [Mass/Vol]13.3 g/xGGbwivp75.0-16.0[facility] Memorial HospitalComment on above:Performed By: #### CBCWD #### [facility] [address] [place] [address] Ffbeoklpveg (Bld) [#/Vol]3.2 10*3/uLNormal1.0-4.8[facility] Memorial HospitalComment on above:Performed By: #### CBCWD #### [facility] [address] [place] [place] [address] Dvprquqzkrg/100 WBC (Bld)26.9 %[facility] HospitalComment on above:Performed By: #### CBCWD #### [facility] [address] [place] [address] RYB (RBC) [Entitic mass]29.8 uaSwwypi42.0-31.3MOhioHealth Grady Memorial Hospital Comment on above:Performed By: #### CBCWD #### [facility] [address] [place] [address] FSFT (RBC) [Mass/Vol]33.8 %Nsbwoi37.0-37.0[facility] Comment on above:Performed By: #### CBCWD #### [facility] [address] [place] [address] LDE (RBC) [Entitic vol]88.4 yMApznks44.0-100.0[facility] Comment on above:Performed By: #### CBCWD #### [facility] [address] [place] [address] Owctfewxl (Bld) [#/Vol]0.8 10*3/uLNormal0.2-0.8[facility] Comment on above:Performed By: #### CBCWD #### [facility] [address] [place] [address] Lnnicuqoj/100 WBC (Bld)6.8 %NormalJoint Township District Memorial HospitalComment on above:Performed By: #### CBCWD #### [facility] [address] [place] [address] Ldwhrzjxjdc (Bld) [#/Vol]7.3 10*3/uLCritically high1.4-6.5[facility] Memorial HospitalComment on above:Performed By: #### CBCWD #### [facility] [address] [place] [address] Ahjnbbeqkez/100 WBC (Bld)61.7 %[facility] Community HospitalComment on above:Performed By: #### CBCWD #### [facility] [address] [place] [address] Kyaewwirq (Bld) [#/Vol]314 10*3/dZJhxekf920-231[facility] Comment on above:Performed By: #### CBCWD #### [facility] [address] [place] [address] LJQ (Bld) [#/Vol]4.45 10*6/uLNormal4.20-5.40[facility] Comment on above:Performed By: #### CBCWD #### [facility] [address] [place] [address] XRB (Bld) [#/Vol]11.9 10*3/uLCritically high4.8-10.8[facility] Memorial HospitalComment on above:Performed By: #### CBCWD #### [facility] [address] [place] [address] CM HEAD WO CONTRASTon 24-40-3504EP HEAD WO CONTRASTCOMPARISON: No prior studies available [...] by: Jayce De Jesus DO 04/19/20 Final resultNormalJoint Township District Memorial HospitalComprehensive Metabolic Panelon 04-19-2020 Albumin [Mass/Vol]4.9 g/dLCritically high3.5-4.6MOhioHealth Grady Memorial HospitalComment on above:Performed By: #### CMP #### [facility] [address] [place] [address] TFT [Catalytic activity/Vol]40 U/KTailtx23-736AoixfJoint Township District Memorial Hospital Comment on above:Performed By: #### CMP #### [facility] [address] [place] [address] EXY [Catalytic activity/Vol]17 U/LNormal0-33[facility] Comment on above:Performed By: #### CMP #### [facility] [address] [place] [address] Yrdlq gap [Moles/Vol]14 mmol/LNormal9-15[facility] Memorial HospitalComment on above:Performed By: #### CMP #### [facility] [address] [place] [address] NPT [Catalytic activity/Vol]17 U/LNormal0-35[facility] Comment on above:Performed By: #### CMP #### [facility] [address] [place] [address] Jujvcrfww [Mass/Vol]mg/dLNormal0.2-0.7[facility] Memorial HospitalComment on above:Performed By: #### CMP #### [facility] [address] [place] [address] Kaiumxb [Mass/Vol]10.0 mg/dLCritically high8.5-9.9[facility] Memorial HospitalComment on above:Performed By: #### CMP #### [facility] [address] [place] [address] Hcihmriu [Moles/Vol]101 mmol/LHljfnv28-897WpxflJoint Township District Memorial Hospital Comment on above:Performed By: #### CMP #### [facility] [address] [place] [address] UX3 [Moles/Vol]24 mmol/BKivugh68-93JliyeJoint Township District Memorial HospitalComment on above:Performed By: #### CMP #### [facility] [address] [place] [address] Xivztcuzsj [Mass/Vol]0.87 mg/dLNormal0.50-0.90[facility] Comment on above:Performed By: #### CMP #### [facility] [address] [place] [address] TXW/1.73 sq M predicted among blacks MDRD (S/P/Bld) [Vol rate/Area] mL/min/{1.73_m2}Normal>60[facility] Memorial HospitalComment on above:Result Comment: >60 mL/min/1.73m2 EGFR, calc. for ages 18 and older using the MDRD formula (not corrected for weight), is valid for stable renal function.Performed By: #### CMP #### [facility] [address] [place] [address] MNX/1.73 sq M.predicted MDRD (S/P/Bld) [Vol rate/Area] mL/min/{1.73_m2}Normal>60[facility] Memorial HospitalComment on above:Result Comment: >60 mL/min/1.73m2 EGFR, calc. for ages 18 and older using the MDRD formula (not corrected for weight), is valid for stable renal function.Performed By: #### CMP #### [facility] [address] [place] [address] Nwlioulm (S) [Mass/Vol]3.1 g/dLNormal2.3-3.5[facility] Comment on above:Performed By: #### CMP #### [facility] [address] [place] [address] Ldeuqym [Mass/Vol]94 mg/kWHhuahx73-88DvwziOhioHealth Grady Memorial HospitalComment on above:Performed By: #### CMP #### [facility] [address] [place] [address] Knznnhlsk [Moles/Vol]3.9 mmol/LNormal3.4-4.9[facility] Comment on above:Performed By: #### CMP #### [facility] [address] [place] [address] Sgiecdj [Mass/Vol]8.0 g/dLNormal6.3-8.0[facility] Memorial HospitalComment on above:Performed By: #### CMP #### [facility] [address] [place] [address] Gujytc [Moles/Vol]139 mmol/YNcgrrk856-205LpydoJoint Township District Memorial HospitalComment on above:Performed By: #### CMP #### [facility] [address] [place] [address] Ksvo nitrogen [Mass/Vol]12 mg/dLNormga6-20[facility] Comment on above:Performed By: #### CMP #### [facility] [address] [place] [address] Clxjxb Acidon 01-03-4088Ymrrkpl [Moles/Vol]1.8 mmol/LNormal0.5-2.2 [facility] HospitalComment on above:Performed By: #### LACID #### [facility] [address] [place] [address] Dylofnogegu 63-07-1036Hsangstbv552.8 ng/mLNNovant Health Kernersville Medical Center Comment on above:Result Comment: Default Normal Ranges Female Male Non: 4.8-23.3 4.0-15.2Performed By: #### PROLA #### [facility] [address] [place] [address] Xiiac HCG Qualitativeon 32-48-7279EQT.beta subunit QnNegativeNormal [facility] HospitalComment on above:Performed By: #### SHCG #### [facility] [address] [place] [address] Wvakfvnike, reflex to cultureon 90-37-8297Kgwhf Reflexed to Culture Not IndicatedNormalJoint Township District Memorial HospitalComment on above:Performed By: #### UAR #### [facility] [address] [place] [address] Zowcanbku Ql (U)NegativeNormalNegativeJoint Township District Memorial HospitalComment on above:Performed By: #### UAR #### [facility] [address] [place] [address] Wzabeof (U)ClearNormalClearJoint Township District Memorial HospitalComment on above: Performed By: #### UAR #### [facility] [address] [place] [address] Nvzhl (U)YellowNormalStraw/YellJoint Township District Memorial HospitalComment on above: Performed By: #### UAR #### [facility] [address] [place] [address] Yjpdylt Ql (U)NegativeNormalNegProvidence Tarzana Medical CenterComment on above:Performed By: #### UAR #### [facility] [address] [place] [address] Oacoxsestg Ql (U)Trace-intactNormalNegProvidence Tarzana Medical Center Comment on above:Performed By: #### UAR #### [facility] [address] [place] [address] Ticsywf Ql (U)NegativeNormalNegProvidence Tarzana Medical CenterComment on above:Performed By: #### UAR #### [facility] [address] [place] [address] Dnqxjcfii esterase Test strip Ql (U)NegativeNormalNegProvidence Tarzana Medical CenterComselect specialty hospital-[facility] [place] on above:Performed By: #### UAR #### [facility] [address] [place] [address] Bgapwba Ql (U)NegativeNormalNegProvidence Tarzana Medical CenterComment on above:Performed By: #### UAR #### [facility] [address] [place] [address] nC (U)6.0 [pH]Normal5.0-9.0[facility] Memorial HospitalComment on above: Performed By: #### UAR #### [facility] [address] [place] [address] Qeyrauc Ql (U)NegativeNormalNegProvidence Tarzana Medical CenterComment on above:Performed By: #### UAR #### [facility] [address] [place] [address] Zxkhyipc gravity (U) [Rel density]1.220Xshwvn4.005-1.03[facility] Memorial HospitalComment on above:Performed By: #### UAR #### [facility] [address] [place] [address] Vtmkxstxqqwc Qn (U)0.2 {Alan'U}/dLNormal< 2.0[facility] Comment on above:Performed By: #### UAR #### [facility] [address] [place] [address] Zgedk Microscopicon 90-40-6548Kegxcpxjly cells LM Ql (Urine sed)0-2 NormalJoint Township District Memorial HospitalComment on above:Performed By: #### UMIC #### [facility] [address] [place] [address] VSI (U) [#/Vol]2-7Zatpsj8-0OqwjuOhioHealth Grady Memorial HospitalComment on above: Performed By: #### UMIC #### [facility] [address] [place] [address] MVH (U) [#/Vol]2-3Xmwuud2-4ZtnqmJoint Township District Memorial HospitalComment on above: Performed By: #### UMIC #### [facility] [address] [place] [address] LUB Auto Differentialon 34-05-3717Tuegqqcct (Bld) [#/Vol]0.1 10*3/uL 0 - 0.2 K/uLTrihealthcy Health- [place], KYBasophils/100 WBC (Bld)0.4 %[facility]- [place], [place] Eosinophils (Bld) [#/Vol]0.5 10*3/uL0 - 0.7 K/uLTrihealthcy Health- [place], [place] Eosinophils/100 WBC (Bld)4.2 %[facility]- [place], KYErythrocyte distribution width (RBC) [Ratio]12.5 %11.5 - 14.5 %[facility]- [place], KYHematocrit (Bld) [Volume fraction]39.4 %37 - 47 %[facility]- [place], KYHemoglobin (Bld) [Mass/Vol]13.3 g/dL 12 - 16 g/dLKnox Community Hospital Health- [place], KYInterpretation and review of laboratory results AbnormalSamaritan Hospital- [place], KYLymphocytes (Bld) [#/Vol]3.2 10*3/uL1 - 4.8 K/uL [facility]- [place], KYLymphocytes/100 WBC (Bld)26.9 %[facility]- [place], KYMCH (RBC) [Entitic mass]29.8 pg27 - 31.3 pgKnox Community Hospital Health- [place], KYMCHC (RBC) [Mass/Vol]33.8 %33 - 37 %[facility]- [place], KYMCV (RBC) [Entitic vol]88.4 fL82 - 100 fLKnox Community Hospital Health- [place], KYMonocytes (Bld) [#/Vol]0.8 10*3/uL0.2 - 0.8 K/uLKnox Community Hospital Health- [place], KYMonocytes/100 WBC (Bld)6.8 %[facility]- [place], KYNeutrophils Absolute7.3 K/uL High1.4 - 6.5 K/uLKnox Community Hospital Health- [place], KYNeutrophils/100 WBC (Bld)61.7 %[facility]- [place], KYPlatelets (Bld) [#/Vol]314 10*3/uL130 - 400 K/uLKnox Community Hospital Health- [place], KYRBC (Bld) [#/Vol]4.45 10*6/uLKnox Community Hospital [facility]- [place], KYWBC (Bld) [#/Vol]11.9 10*3/uL High4.8 - 10.8 K/uLKnox Community Hospital Health- [place], KYComprehensive Metabolic Panelon 68-23-2069Mwadorm [Mass/Vol]4.9 g/dLHigh3.5 - 4.6 g/dLKnox Community Hospital Health- [place], KYALP [Catalytic activity/Vol]40 U/L40 - 130 U/LMtrihealth good [facility]- [place], KYALT [Catalytic activity/Vol]17 U/L0 - 33 U/LMercy Health- [place], KYAnion gap [Moles/Vol]14 mmol/L [facility]- [place], KYAST [Catalytic activity/Vol]17 U/L0 - 35 U/LMercy Health- [place], KYBilirubin Ql (U)<0.20.2 - 0.7 mg/dLKn[facility] Hospital [facility]- [place], KYCalcium [Mass/Vol] 10.0 mg/dLHigh8.5 - 9.9 mg/dLMercy Health- [place], KYChloride [Moles/Vol]101 mmol/L [facility]- [place], KYCO2 [Moles/Vol]24 mmol/LMcleveland clinic marymount hospitaly Health- [place], KYCreatinine [Mass/Vol]0.87 mg/dL0.5 - 0.9 mg/dLKnox Community Hospital [facility]- [place], KYGFR >60.0 >60Mercy [...] function. Globulin (S) [Mass/Vol]3.1 g/dL2.3 - 3.5 g/dLSamaritan Hospital- [place], KYGlucose [Mass/Vol]94 mg/dL70 - 99 mg/dLKn[facility] Community Hospital [facility]- [place], KYInterpretation and review of laboratory resultsAbnormalMerWhitman Hospital and Medical Center- [place], KYPotassium [Moles/Vol]3.9 mmol/L [facility]- [place], KYProtein [Mass/Vol]8.0 g/dL6.3 - 8 g/dLSamaritan Hospital- [place], [place] Sodium [Moles/Vol]139 mmol/LMtrihealth [facility]- [place], KYUrea nitrogen [Mass/Vol]12 mg/dL 6 - 20 mg/dLSamaritan Hospital- [place], KYHCG Qualitative, Serumon 79-09-3228oWR Qual NegativeMerWhitman Hospital and Medical Center- [place], KYLactic Acid, Plasmaon 11-72-5098Uodmwbm [Moles/Vol] 1.8 mmol/L0.5 - 2.2 mmol/LMcleveland clinic marymount hospitaly Health- [place], KYMicroscopic Urinalysison 64-75-8972Qytlqxliyq Cells, UA0-2/HPFKnox Community Hospital Health- [place], KYRBC (U) [#/Vol]0-2Mcleveland clinic marymount hospitaly Health- [place], KYWBC, UA0-2[facility]- [place], KYUrine Reflex to Cultureon 83-65-2504Huggvvvgp UrineNegativeNegativeMercy Health- [place], KYBlood, Urine Trace-intactNegativeMercy Health- [place], KYClarity, UAClearClearMercy Health- [place], KYColor, UAYellowStraw/YellowMercy Health- [place], KYGlucose, UrNegativeNegative mg/dLMercy Health- [place], KYKetones Ql (U)NegativeNegative mg/dLMercy Health- [place], KYLeukocyte esterase Test strip Ql (U)NegativeNegativeMercy Health- [place], [place] Nitrite, UrineNegativeNegativeMercy Health- [place], KYpH, UA6.0[facility]- [place], [place] Protein (U) [Mass/Vol]NegativeNegative mg/dLMercy Health- [place], KYSpecific [place], UA1.020[facility]- [place], KYUrine Reflex to CultureNot IndicatedMercy Health- [place], KYUrobilinogen, Urine0.2<2.0 E.U./dLMercy Health- [place], [place] ECHOCARDIOGRAPHY REPORT (HL)on 10-28-5282FNVQPJLLCXXXLREY REPORT (HL)CANTU, PRINCESS [id number] [id number] 179.6F 1.24i6RlmvgrkqmnWMRMOOGBQVNGFM LABReferring: Koffi Uriarte A.Reading: CURTIS GARCIA Transthoracic [...] 4 CH 16.1 cm2LA Volume Indexed 21.05 ml/f8Xcaqqqkst/Systolic FunctionMV E- wave Vmax 0.884 m/secMV deceleration time 193 msecMV A-wave Vmax 0.494 m/secLV septal e' Vmax 0.115 m/secLV lateral e' Vmax 0.189 m/secLV E:e' septal ratio 7.7 ratio [facility] PRINCESS CANTU [id number] [place] [address] [id number] 93Koffi Uriarte MDECHOCARDIOGRAPHY REPORTLV E:e' lateral ratio [...] There is no evidence ofpulmonic regurgit ation. [facility] PRINCESS CANTU [id number] [place] [address] [id number] 93Koffi Uriarte MDECHOCARDIOGRAPHY REPORTPericardium:There is no pericardial [...] is a normal echocardiogram.PARAS GARCIA05/10/2017 10: 26:53 [facility] PRINCESS CANTU [id number] [place] [address] [id number]/16/94F[facility] Medical CenterKoffi roper MDECHOCARDIOGRAPHY REPORTNormalSaint Marshall Medical Center SouthBASIC METABOLIC PANELon 22-32-3308Uujeq gap10 mmol/LNormal6-18[facility] SouthComment on above: Order Comment: Is patient fasting? YESPerformed By: #### LBMP, LGFRP ####[facility] Rnbzdvcbgo[address]22 [place], [place] [address]Calcium9.6 mg/dLNormal 8.6-10.3SEdwards County Hospital & Healthcare CenterComment on above:Order Comment: Is patient fasting? YESPerformed By: #### LBMP, LGFRP ####[facility] B[address]stspw[address] [place], [place] [address]Yihzrfvj381 mmol/DSalxuz63-082MauzsNiobrara Health And [facility] Center [facility] Comment on above:Order Comment: Is patient fasting? YESPerformed By: #### LBMP, LGFRP ####[facility] Glwcukforg[address]26 [place], [place] [address] mmol/L Yyycsu79-80XyihwNiobrara Health And Life Center - LuskComment on above:Order Comment: Is patient fasting? YESPerformed By: #### LBMP, LGFRP ####[facility] [address] [place] [address]Lujhqegigp1.74 mg/dLNormal0.5-1.05Ni[facility] Life Center - LuskComment on above:Order Comment: Is patient fasting? YESPerformed By: #### LBSHAWN, LGFRP ####[facility] [address] [place] [address]Gpivtad mass conc82 mg/nIHpmbrk33-94BslauNiobrara Health And Life Center - LuskComment on above:Order Comment: Is patient fasting? YESPerformed By: #### LBSHAWN, LGFRP ####[facility] [address] [place] [address]Sgbofupap molar conc4.1 mmol/LNormal3.5-5.3SEdwards County Hospital & Healthcare CenterComment on above:Order Comment: Is patient fasting? YESPerformed By: #### LBMP, LGFRP ####[facility] Gldtenom[address] [place] [address]Bofqww010 mmol/FFzl345-602LmzyqNiobrara Health And Life Center - LuskComment on above:Order Comment: Is patient fasting? YESPerformed By: #### LBMP, LGFRP ####[facility] Ktfffpjwea[address] [place], [place] [address]Pryn muearcne18 mg/dLNormal6-23Niobrara Health And Life Center - LuskComment on above:Order Comment: Is patient fasting? YESPerformed By: #### LBMP, LGFRP ####[facility] [address] [place] [address]BEA AUTOon 05-04-2017 Erythrocyte distribution width Auto Ratio (RBC)12.8 %Pqxlnu51.5-14.5SEdwards County Hospital & Healthcare CenterComment on above:Performed By: #### LCBC ####[address] [address]Iqicpmustato (RBC)4.65 10*6/uLNormal3.5-5.5 [facility] - LuskComment on above:Performed By: #### LCBC ####[address] [address]Ywfxifbztp (HCT)41.1 %Normal 36.0-48.0Ni[facility] Life Center - LuskComment on above:Performed By: #### LCBC ####[address] [address]Flrtwgolee mass conc (Bld)13.8 g/eVYcefmw02.0-15.0Ni[facility] Center - LuskComment on above: Performed By: #### LCBC ####[address] [address]LNK04.7 qfLfohgq33.4-34.6Ni[facility] Center - LuskComment on above: Performed By: #### LCBC ####[address] [address]SLKM mass conc (RBC)33.6 g/jRJuldcf93.0-36.0[facility] Comment on above:Performed By: #### LCBC ####[address] [address]VPY62.4 jGGfokss14.0-98.0[facility] Center - LuskComment on above:Performed By: #### LCBC ####[address] [address]Ubfvoxac mean volume (PMV)9.3 fLNormal8.4-11.9Ni[facility] - LuskComment on above:Performed By: #### LCBC ####[address] [address]Bbwptvzul063 10*3/iOBjndew264-236LstizNiobrara Health And Life Center - LuskComment on above:Performed By: #### LCBC ####[facility] Hglusvlmwa[address] [place], [place] [address]MIA (Leukocytes)6.1 10*3/uLNormal3.9-11.0 [facility] - LuskComment on above:Performed By: #### LCBC ####[facility] [address]xywjsdz[address] [place], [place] [address]MXEVCLCXXY FILTRATION RATE ESTon 45-95-2017nDYU (non-black)mL/min/{1.73_m2}Normal> 60Ni[facility] Center - LuskComment on above:Order Comment: Is patient fasting? YESPerformed By: #### LBMP, LGFRP ####[facility] S[address]afbhhvs90[address] [place], [place] [address]YU AMER> 90Normal> 60Ni[facility] Life Center - LuskComment on above:Order Comment: Is patient fasting? YESResult Comment: Effective 12/12/14:CKD-EPI equation / based on IDMS traceable creatinine.Continue touse the CREAT CLR-DOSE ([place]-Gault)value for determining medication dose.Performed By: #### LBMP, LGFRP ####[facility] [address]szrrycihu[address]12 [place] [address] Vital Signs Date TimeVital SignValuePerforming SypaofohgZtfgcxft26-65-8056 10:07-0400Body mass index (BMI) [Ratio]27.02 kg/m2Roula VILLEDA Work Phone: [facility] HospitalGxlqbnyfds92-19-2517 10:07-0400Body ltkirk39.01 kgRoula VILLEDA Work Phone: [phone] HospitalTqzbcrkrmw12-38-3535 10:07-0400Diastolic blood ogpwxjme87 mm[Hg]Roula VILLEDA Work Phone: [phone] HospitalGdgygfvkks06-09-5084 10:07-0400Systolic blood saefjcsy049 mm[Hg]Roula VILLEDA Work Phone: SocialTaggSaint Luke's East HospitalNyehxznkqo21-33-6558 15:12-0400Body mass index (BMI) [Ratio]27.04 kg/f9JmkwgiWllis Chen DO Work Phone: 1(419)483-[address] [place], [place] [address]Pawcjsydcc47-06-1825 15:12-0400Body suxyfo79.06 kgCorey April DO Work Phone: 1(382)067-[address] [place], [place] [address]Jagfzgwxxo78-26-8707 15:12-0400Diastolic blood cfipxfdu54 mm[Hg]Willis April DO Work Phone: 1(161)325-[address] [place], [place] [address]Vyssaoctjg52-68-2879 15:12-0400Systolic blood kewnwnnm083 mm[Hg]Willis April DO Work Phone: 1(464)[facility] [place] [address]-20-2025 15:39-0400Body mass index (BMI) [Ratio]26.26 kg/m2Amy Mitchel VILLEDA Work Phone: 1(878)[facility] [place], [place] [address]Udwjjtmkue89-59-0757 15:39-0400Body uefmma97.65 kgAmy Mitchel VILLEDA Work Phone: 1(763)[facility] [place], [place] [address]Zjzyfigict66-62-1774 15:39-0400Diastolic blood cehzltco03 mm[Hg]Roula VILLEDA Work Phone: 1(504)[facility] [place], [place] [address]Veaenfpjjz97-70-9922 15:39-0400Systolic blood rfujasao195 mm[Hg]Roula VILLEDA Work Phone: 1(959)[facility] [place], [place] [address]Xdxqwruqyq71-44-3439 15:09-0400Body mass index (BMI) [Ratio]26.11 kg/o1Xwdem April DO Work Phone: 1(202)[facility] [place], [place] [address]Yeidzxvrfe72-77-7187 15:09-0400Body gijzyb18.2 kg Willis April DO Work Phone: 1(441)[facility] [place], [place] [address]Fogaoigipo16-41-4043 15:09-0400Diastolic blood ealnjcjk48 mm[Hg]Willis April DO Work Phone: 1(019)[facility] [place], [place] [address]Ohlnbqrzsl28-33-7052 15:09-0400Systolic blood amgopjxm129 mm[Hg]Willis April DO Work Phone: 1(165)[facility] [place], [place] [address]Iqxljbsqnu39-50-4051 09:35-0400Body mass index (BMI) [Ratio]25.92 kg/m2Amy Mitchel VILLEDA Work Phone: 1(776)[facility]-[address] [place], [place] [address]17[address]25 09:35-0400Body .61 kgRoula VILLEDA Work Phone: 1(636)102-[address] [place], [place] [address]Zmzufjdtzh29-36-2205 09:35-0400Diastolic blood mbcqkexm42 mm[Hg]Roula VILLEDA Work Phone: [facility]si[facility]-6049 09:35-0400Systolic blood abpxoxid021 mm[Hg]Roula VILLEDA Work Phone: 1(104)592-[address] [place], [place] [address]Drhkdyijjd68-77-2266 11:56-0400Body mass index (BMI) [Ratio]26.55 kg/x7[facility]vr[facility]06-27-2025 11:56-0400Body weight 81.56 kg[facility]02-25-2025 12:28-0500Body .3 cmKoffi Uriarte MD Work Phone: 1(754)580-[facility]02-25-2025 12:28-0500 Body mass index (BMI) [Ratio]27.06 kg/k5VqeffzwKoffi Uriarte MD Work Phone: [phone]02-25-2025 12:28-0500 Body jdetrytshbi05.3 [degF]Koffi Uriarte MD Work Phone: 1(995)[facility]02-25-2025 12:28-0500 Body .12 kgKoffi Uriarte MD Work Phone: [facility]02-25-2025 12:28-0500 Diastolic blood sdiazgog50 mm[Hg]Koffi Uriarte MD Work Phone: [facility]02-25-2025 12:28-0500 Heart rate71 /minKoffi Uriarte MD Work Phone: [facility]02-25-2025 12:28-0500 Systolic blood soiqygbi333 mm[Hg]Koffi Uriarte MD Work Phone: [facility]10-16-2024 09:18-0400 Body pwcqym414.3 Tawanda Calderon MD Work Phone: [facility]10-16-2024 09:18-0400 Body mass index (BMI) [Ratio]28.15 kg/t3TuvpicNedra Calderon MD Work Phone: [facility]10-16-2024 09:18-0400 Body mblbcrbhewk94.91 [degF]Nedra Calderon MD Work Phone: [facility]10-16-2024 09:18-0400 Body hfxeyt72.46 kgNedra Calderon MD Work Phone: [facility]10-16-2024 09:18-0400 Diastolic blood nharyhcc87 mm[Hg]Nedra Calderon MD Work Phone: [facility]10-16-2024 09:18-0400 Heart rate67 /Wilner Calderon MD Work Phone: [facility]10-16-2024 09:18-0400 Systolic blood gofaqhpd157 mm[Hg]Nedra Calderon MD Work Phone: [facility]04-23-2024 15:27-0400 Body tzijyk649.26 [facility] 15:27-0400Body mass index (BMI) [Ratio]28.2 kg/m8[facility]igbuelbHol[facility]04-23-2024 15:27-0400Body wnpqckntjob60.1 [degF][facility]04-23-2024 15:27-0400Body mbiawf53.74 [facility]Hol[facility]04-23-2024 15:27-0400Heart rate63 /[facility]04-23-2024 15:27-0400Respiratory rate18 /[facility]04-23-2024 15:27-9506ZfA8% (BldA) [Mass fraction]99 %[facility] 07-31-2022 10:54-0500Body .26 cmKoffi Uriarte Work Phone: mp-[facility]SPCQqbaobao.comMont[place] Work Phone: 1(671) 740-403901-13-2023 10:54-0500Body mass index (BMI) [Ratio] 31.01 kg/h7Pnsjfzu A Chapito Work Phone: mp-WSPCQqbaobao.comMont[place] Work Phone: 1(642) 411-204001-13-2023 10:54-0500Body surface area Derived from formula2.11 o1Yevklya A Chapito Work Phone: mp-WSPCQqbaobao.[facility]Mont[place] Work Phone: 1(747) 121-797301-13-2023 10:54-0500Body caucitnvfcb69.6 [degF] Koffi A Chapito Work Phone: mp-WSPCQqbaobao.[facility]Mont[place] Work Phone: 1(418) 494-421701-13-2023 10:54-0500Body mfxmec45.26 kgMonique A Chapito Work Phone: mp-WSPCQqbaobao.[facility]Mont[place] Work Phone: 1(917) 358-675901-13-2023 10:54-0500Diastolic blood ljxukuxd60 mm[Hg] Koffi Alison Uriarte Work Phone: mp-WSPCQqbaobao.[facility]Mont[place] Work Phone: 1(518) 868-451101-13-2023 10:54-0500Heart rate76 /minMonique A Chapito Work Phone: mp-WSPCQqbaobao.[facility]Mont[place] Work Phone: 1(696) 822-308401-13-2023 10:54-0500Respiratory rate18 /minMonique A Chapito Work Phone: mp-WSPCQqbaobao.[facility]Mont[place] Work Phone: 1(909) 147-489201-13-2023 10:54-0500Systolic blood ogdfjobi170 mm[Hg] Koffi Alison Uriarte Work Phone: mpFitnessManagerMontgomery Work Phone: 1(731) 811-333706-08-2022 11:32-0400Body hjkouy211.26 cmMonique A Uriarte Work Phone: mp804-3616UK-Poaugrszm-Eugene SJW DO Work Phone: 1(514) 111-561506-08-2022 11:32-0400Body mass index (BMI) [Ratio] 31.03 kg/s8Hluxfbl A Uriarte Work Phone: mp036-6319FQ-Gthmjrzjq-[place] SJW DO Work Phone: 1(169) 141-807206-08-2022 11:32-0400Body surface area Derived from formula2.11 y1Yjthzwv A Uriarte Work Phone: mp679-2016EJ-Hfjmlbieh-[employer]ial[employer] SJW DO Work Phone: 1(198) 779-501506-08-2022 11:32-0400Body ixzazumrvhc86.1 [degF] Koffi Alison ClementeUriarte Work Phone: mp223-2982YE-Vklahlxok-Dialective W DO Work Phone: 1(117) 445-886706-08-2022 11:32-0400Body uprgrr77.3 kgMonique A Uriarte Work Phone: mp132-1664UM-Psgubsarg-Dialective W DO Work Phone: 1(842) 590-312806-08-2022 11:32-0400Diastolic blood oqvlqepo39 mm[Hg] Koffi Alison Uriarte Work Phone: mp080-8697KM-Gqrkwofjf-Eugene W DO Work Phone: 1(392) 798-635306-08-2022 11:32-0400Heart rate54 /minMonique A Chapito Work Phone: mp815-8012PZ-Vfhotjkgy-[place] SJW DO Work Phone: 1(164) 481-354306-08-2022 11:32-2626ZdA5% (BldA) [Mass fraction]100 % Koffiminesh Uriarte Work Phone: mp844-3898XK-Dmdncovwn-[place] SJW DO Work Phone: 1(304) 114-173206-08-2022 11:32-0400Systolic blood lwvaendj595 mm[Hg] Koffi A Chapito Work Phone: mp346-7115SW-Vxaghubnd-[place] SJ DO Work Phone: 1(100) 692-884405-02-2022 13:08-0400Body spupzk709.72 cmMonique A Chapito Work Phone: mp-[facility]SP[facility]-[place] Work Phone: 1(188) 435-746605-02-2022 13:08-0400Body mass index (BMI) [Ratio] 32.39 kg/g6Rodlnij A Chapito Work Phone: mp-[facility] Work Phone: 1(969) 154-779605-02-2022 13:08-0400Body surface area Derived from formula2.1 k8Zomfocq A Chapito Work Phone: mp-[facility] Work Phone: 1(448) 207-401805-02-2022 13:08-0400Body khoechpymyb30 [degF]Koffi A Chapito Work Phone: mp-[facility] Work Phone: 1(817) 749-545205-02-2022 13:08-0400Body qnmxwe60.62 kgMonique A Chapito Work Phone: mp-[facility] Work Phone: 1(624) 840-245905-02-2022 13:08-0400Diastolic blood ugczwzug47 mm[Hg] Koffi A Chapito Work Phone: mp-[facility] Work Phone: 1(520) 219-185005-02-2022 13:08-0400Heart rate70 /minMonique A Chapito Work Phone: mp-[facility] Work Phone: 1(264) 509-135705-02-2022 13:08-0400Respiratory rate18 /minMonique A Chapito Work Phone: mp-[facility] Work Phone: 1(825) 486-759405-02-2022 13:08-6740QkU7% (BldA) [Mass fraction]96 % Koffi Uriarte Work Phone: mp-[facility] Work Phone: 1(837) 740-720405-02-2022 13:08-0400Systolic blood aknyvyen168 mm[Hg] Koffi Uriarte Work Phone: mp-WSPC-[employer] Work Phone: 1(594) 998-906612-08-2021 10:54-0500Body xeyazd193.72 cmKoffi Uriarte Work Phone: mp535-5051SW-Zemikenbc-Eugene W DO Work Phone: 1(939) 537-391012-08-2021 10:54-0500Body mass index (BMI) [Ratio] 32.08 kg/v8SwtekecKoffi Uriarte Work Phone: mp145-3854KM-Rpualimtm-[place]ugene W DO Work Phone: 1(214) 248-637012-08-2021 10:54-0500Body surface area Derived from formula2.09 l6DjlgfxyKoffi Clementeson Work Phone: mp921-2385LJ-Ddiellkkl-[place]ugene W DO Work Phone: 1(669) 465-507812-08-2021 10:54-0500Body zhydqugwhri38.1 [degF] Koffi Uriarte Work Phone: mp547-1366CA-Oibhtpxeu-[place] SJW DO Work Phone: 1(263) 391-803212-08-2021 10:54-0500Body .71 kgKoffi Clementeson Work Phone: mp967-5202ZN-Rhldhmofn-[place] SJW DO Work Phone: 1(385) 743-704512-08-2021 10:54-0500Diastolic blood gekieisg13 mm[Hg] Koffi Clementeson Work Phone: mp270-8446IG-Xjivorjsc-[place] SJW DO Work Phone: 1(594) 933-732312-08-2021 10:54-0500Heart rate67 /minMonminesh Clementeson Work Phone: mp437-3129XW-ZphrtynumB[facility] DO Work Phone: 1(149) 515-216212-08-2021 10:54-0500Respiratory rate18 /minMonminesh Uriarte Work Phone: mp372-4384FR-ZbdzbkzmoB[facility] DO Work Phone: 1(724) 120-657512-08-2021 10:54-2413TbG2% (BldA) [Mass fraction]99 % Koffi Uriarte Work Phone: mp902-4953LK-AinzqmnktB[facility] DO Work Phone: 1(766) 957-535112-08-2021 10:54-0500Systolic blood kexqjwgg632 mm[Hg] Koffi Uriarte Work Phone: mp049-7576KC-WxmovdnvlB[facility] DO Work Phone: 1(848) 512-967911-02-2021 15:59-0400Body yuqext022.72 cmMonminesh Clementeson Work Phone: mp-[employer] Work Phone: 1(379) 280-639811-02-2021 15:59-0400Body mass index (BMI) [Ratio] 31.93 kg/k2Eypvcatminesh Uriarte Work Phone: mp-[employer] Work Phone: 1(905) 265-978511-02-2021 15:59-0400Body surface area Derived from formula2.09 p8AnhdqnqKoffi Clementeson Work Phone: mp-[employer] Work Phone: 1(372) 753-612211-02-2021 15:59-0400Body stpyaxxsinn50.1 [degF] Koffi Clementeson Work Phone: [employer] Work Phone: 1(152) 244-298011-02-2021 15:59-0400Body onzbmr88.26 kgMonique Alison ClementeUriarte Work Phone: [employer] Work Phone: 1(367) 736-566011-02-2021 15:59-0400Diastolic blood hlnbusbb17 mm[Hg] Koffi Uriarte Work Phone: mp-WSPCQqbaobao.[facility]Mont[place] Work Phone: 1(614) 188-522411-02-2021 15:59-0400Heart rate72 /minMonique A Chapito Work Phone: mp-WSPCQqbaobao.[facility]Mont[place] Work Phone: 1(270) 908-168211-02-2021 15:59-0400Respiratory rate16 /minMonique A Chapito Work Phone: mp-WSPCQqbaobao.[facility]Mont[place] Work Phone: 1(505) 555-239111-02-2021 15:59-0400Systolic blood nicrxzof038 mm[Hg] Koffi Uriarte Work Phone: mp-WSPCQqbaobao.[facility] Work Phone: 1(514) 683-586806-08-2021 14:45-0400Body uxvfqj924.72 cmMonique A Chapito Work Phone: mp-WSPCQqbaobao.[facility]Mont[place] Work Phone: 1(917) 100-917706-08-2021 14:45-0400Body mass index (BMI) [Ratio] 30.71 kg/g4Mtuwsnv A Chapito Work Phone: mp-WSPCQqbaobao.[facility]Mont[place] Work Phone: 1(869) 355-445906-08-2021 14:45-0400Body surface area Derived from formula2.05 p7Jrybwju A Uriarte Work Phone: mp-[facility]SPCQqbaob[facility] Work Phone: 1(886) 937-139906-08-2021 14:45-0400Body mbiukubedbg27.8 [degF] Koffi A Uriarte Work Phone: mp-[facility]SPCQqbaob[facility] Work Phone: 1(669) 403-831906-08-2021 14:45-0400Body kpebfd45.63 kgMonique A Uriarte Work Phone: mp-WSPCQqbaobao.[facility] Work Phone: 1(397) 296-296006-08-2021 12:59-0400Body iuilmq570.72 cmMonique A Chapito Work Phone: mp-WSPCQqbaobao.comJennifer Ruby Work Phone: 1(606) 299-946106-08-2021 12:59-0400Body mass index (BMI) [Ratio] 30.71 kg/r6Ogyrswk A Uriarte Work Phone: mp-WSPCQqbaobao.[facility]Mont[place] Work Phone: 1(316) 372-197706-08-2021 12:59-0400Body surface area Derived from formula2.05 u0Logzkqo A Uriarte Work Phone: mp-WSPCQqbaobao.[facility]Mont[place] Work Phone: 1(829) 233-445906-08-2021 12:59-0400Body .2 [degF] Koffi A Chapito Work Phone: mp-WSPCQqbaobao.[facility]Mont[place] Work Phone: 1(613) 540-351806-08-2021 12:59-0400Body kfpepa12.63 kgMonique A Chapito Work Phone: mp-WSPCQqbaobao.[facility]Mont[place] Work Phone: 1(850) 347-185206-08-2021 12:59-0400Diastolic blood pumafjhf53 mm[Hg] Koffi A Chapito Work Phone: mp-WSPCQqbaobao.[facility]Mont[place] Work Phone: 1(154) 314-552006-08-2021 12:59-0400Heart rate75 /minMonique A Uriarte Work Phone: mp-WSPCQqbaob[facility] Work Phone: 1(121) 324-666306-08-2021 12:59-0400Respiratory rate16 /minMonique A Uriarte Work Phone: mp-WSPCQqbaobao.comJennifer Ruby Work Phone: 1(612) 610-760706-08-2021 12:59-0400Systolic blood ccapxexh345 mm[Hg] Koffi A Uriarte Work Phone: mp-[facility] Work Phone: 1(734) [phone] 13:26-0500BMI (Body Mass Index)29.04 kg/m2 Koffi UriarteKczuhvbbxwDZ-Kawrgsflk-Dfpwdacr W DO Work Phone: 1(497) 188-656001-27-2021 13:26-0500Body Rdiqgfqhxfu77.5 [degF] Koffi UriarteDdfttjizthPV-Vuyuwaunv-Ktphtjip W DO Work Phone: 1(274) 862-756601-27-2021 13:26-0500Body upprzf24.64 kgKoffi UriarteIkziljfkjiAL-Wnhhwddvp-Wnycfwww W DO Work Phone: 1(450) 583-408801-27-2021 13:26-0500BP Juplpxaff450 mm[Hg]Koffi ClementeVpdawfdzphOR-Baabidtsi-Knoiovhc W DO Work Phone: 1(288) 517-247301-27-2021 13:26-0500BP Ubixbuak080 mm[Hg]Koffi TavarezNrcazckaeoSH-Ojkpagmxl-Uasydont W DO Work Phone: 1(184) 170-276301-27-2021 13:26-0500BSA (Body Surface Area)2 m2 Koffi UriarteHwqzyhbfuuWU-Ftzqkwqyp-Khvresuk W DO Work Phone: 1(378) 607-379301-27-2021 13:26-7896Lbubxu802.72 cmKoffi Uriarte RH-Treugbyfr-Mihiemkl SJW DO Work Phone: 1(211) 947-822811-10-2020 15:24-0500BMI (Body Mass Index)28.59 kg/m2 Koffi TavarezDkgqbpwueoNU-GYHP-[place] Work Phone: 1(829) 564-773511-10-2020 15:24-0500Body Ondyfrmxljn94.6 [degF] Koffi UriarteQmrtdujwbaFQ-BDXH-Xedf [place] Work Phone: 1(571) 722-267011-10-2020 15:24-0500Body geegyv25.28 kgKoffi UriarteNihxfrxxrrWK-IAMZ-[place]sg[place] Work Phone: 1(606) 588-197411-10-2020 15:24-0500BP Agwfyttju98 mm[Hg]Koffiminesh TavarezSfbttngksaWD-GSSM-[place] Work Phone: 1(985) 225-532611-10-2020 15:24-0500BP Dczthxqk018 mm[Hg]Koffi JohnsonCwmkyecdraHF-RBXN-Imww [place] Work Phone: 1(804) 816-917011-10-2020 15:24-0500BSA (Body Surface Area)1.99 m2 oKffi UriarteHungrqphviWE-XISV-Zzci [place] Work Phone: 1(863) 824-844011-10-2020 15:24-8473Mnlbuw450.72 cmKoffi Uriarte [facility] Work Phone: 1(778) 484-156711-10-2020 15:24-0500Pulse (Heart Rate)70 /minKoffi TavarezGlyvdosqmmFU-ENBF-[place]seg [place] Work Phone: 1(730) 565-565011-10-2020 15:24-0500Respiratory Rate18 /minKoffi TavarezXwmvgsecenLB-CYEI-Stzk [place] Work Phone: 1(411) 345-435910-08-2020 16:01-0400BMI (Body Mass Index)28.59 kg/m2 Koffi UriarteEjbmlunbdpHT-UCWI-Eqvl [place] Work Phone: 1(698) 386-239510-08-2020 16:01-0400Body Gkitcbuyobs81.6 [degF] Koffi TavarezFqbgzthsbnZO-CVNB-Kcvh [place] Work Phone: 1(937) 994-458010-08-2020 16:01-0400Body okvkpd09.28 kgKoffi TavarezZvqzpqxkqsKE-LBAL-Xdpf [place] Work Phone: 1(274) 947-773710-08-2020 16:01-0400BP Amawpbxon697 mm[Hg]Koffi TavarezNobmdzdmwvJS-LLJM-Vwxk [place] Work Phone: 1(259) 294-104210-08-2020 16:01-0400BP Ivryjewy360 mm[Hg]Koffi TavarezUlkqzbnjbmZA-FPKX-Hvlc [place] Work Phone: 1(887) 960-218410-08-2020 16:01-0400BSA (Body Surface Area)1.99 m2 Koffi TavarezWtufsczdvhBL-AKVP-Qbck [place] Work Phone: 1(139) 622-288410-08-2020 16:01-5757Kjxmfv044.72 cmKoffi Uriarte PO-POGJ-Yskt [place] Work Phone: 1(404) 112-774110-08-2020 16:01-0400Pulse (Heart Rate)76 /minKoffi TavarezDxcuttgatvLD-NUZQ-[place] Work Phone: 1(939) 869-158410-08-2020 16:01-0400Respiratory Rate16 /minKoffi TavarezSbywvkvwuiLU-CRBE-Kdxl [place] Work Phone: 1(350) 454-657110-02-2020 00:00-0400BP Pjebeksph45 mm[Hg][facility], [place]46-43-9401 00:00-0400BP Uswjfllx063 mm[Hg][facility], TK23-85-3581 22:17-0400BMI (Body Mass Index)28.06 kg/e1RlsmwosDoylestown Health, EH22-49-8112 22:17-0400Body Eocijddgxjv13.91 [degF][facility], RW12-19-7350 22:17-0400Body hxrrnu96.18 kgDoylestown Health, FT65-03-8118 22:17-1308Tfnhrd133.3 cmDoylestown Health, PV87-16-4182 22:17-0400Pulse (Heart Rate)105 /minD[facility], [place] 04-18-2020 22:17-0400Pulse Kigpugop64 %[facility] 04-18-2020 22:17-0400Respiratory Rate16 /minDoylestown Health, [place] Encounters Encounter DateEncounter TypeCare ProviderFacilityStart: 05-29-2025 End: 06-41-8933Tnizam flowsheetCorey April DO Work Phone: [facility]BGYNStart: 05-29-2025 End: 55-13-0756Mqqbcx flowsheetCorey April DO Work Phone: [facility] [place] [facility]BGYNStart: 05-29-2025 End: 32-29-4452ezzxtikjpbZJKRS FAZIONot AvailableStart: 05-19-2025 End: 04-39-3110Uqxevefrg Result EncounterRoula VILLEDA Work Phone: noMS External Department UnsolicitedStart: 05-19-2025 End: 11-00-9664Buhdvpgay Result EncounterRoula VILLEDA Work Phone: noms External Department UnsolicitedStart: 04-30-2025 End: 46-89-8147Vryhhg flowsheetRoula VILLEDA Work Phone: noMS [place] [facility]BGYNStart: 04-30-2025 End: 60-64-4918Mrooje Tim VILLEDA Work Phone: [facility] [place] [facility]BGYNStart: 04-30-2025 End: 19-39-2576ixvafmwwdfAXH MITCHELNot AvailableStart: 04-30-2025 End: 93-93-7464Wgatyodp flow sheetRoula VILLEDA Work Phone: noms [facility] OBGYNComment on above:Second trimester ([facility]); 24 weeks gestation of ([facility]); Hypertension, unspecified type; Seizure ([facility]); Diabetes mellitus screeningStart: 04-07-2025 End: 05-61-2079Jhbdsjdln Result EncounterRoula VILLEDA Work Phone: noms External Department UnsolicitedStart: 04-07-2025 End: 67-24-2530Rgwuqhcrv Result EncounterRoula VILLEDA Work Phone: noms External Department UnsolicitedStart: 04-04-2025 End: 01-05-8201Ibwkkeve flow sheetCorey April DO Work Phone: [facility] [place] OBGYNComment on above:20 weeks gestation of ([facility]); Second trimester ([facility])Start: 04-04-2025 End: 61-92-8942tsuxujvdotEVSDK FAZIONot AvailableStart: 04-04-2025 End: 54-49-0459Ofgmdzjpk Result EncounterCorey April DO Work Phone: noms External Department UnsolicitedStart: 04-04-2025 End: 87-36-0194Xazvqqfmr Result EncounterCorey April DO Work Phone: noms External Department UnsolicitedStart: 03-14-2025 End: 33-88-8169oqynheazlnQTT MITCHELNot AvailableStart: 03-07-2025 End: 68-03-8727Ademdlb encounter procedureRoula Grullon CHRISTIANA Work Phone: [facility] Work Phone: Start: 03-07-2025 End: 43-55-2409Xzdyiwgg flow sheetRoula Lerneraayush VILLEDA Work Phone: noms [facility]elle OBGYNComment on above:Well woman exam with routine gynecological exam; Second trimester ([facility]); 16 weeks gestation of ([facility]); Vaginal discharge; STD exposure; Screening, , for anatomic survey ([facility])Start: 03-07-2025 End: 08-61-0719adiesichtdKFU MITCHELNot AvailableStart: 03-07-2025 End: 91-66-3185Opdsje flowsheetRoula Lerneraayush VILLEDA Work Phone: [facility] [place] OBGYNStart: 03-07-2025 End: 45-94-6262Rdrnbi flowstayaRoula Mitchel PA Work Phone: [facility] [place] OBGYNStart: 03-07-2025 End: 08-48-6766Ldqzybpfd Result EncounterRoula Grullon CHRISTIANA Work Phone: noms External Department UnsolicitedStart: 03-07-2025 End: 48-40-0687Sgobzuby Result EncounterRoula Lerneraayush VILLEDA Work Phone: noms External Department UnsolicitedStart: 02-21-2025 End: 06-09-6491bgrtkpytcoWOITV FAZIONot AvailableStart: 02-07-2025 End: 80-16-0697Ijojoher flow sheetCorey April DO Work Phone: NOZP [place] OBGYNComment on above:First trimester ([facility]); 12 weeks gestation of ([facility]); Missed menses; Subchorionic hematoma in second trimester, single or unspecified fetus ([facility]) Start: 02-07-2025 End: 48-59-5129kiiayjzgheABUWM FAZIONot AvailableStart: 02-07-2025 End: 24-94-7361Hfldnt flowsheetCorey April DO Work Phone: NOXQ BCP OBStart: 02-07-2025 End: 32-86-9539Quhtkv flowsheetCorey April DO Work Phone: NOSS BCP OBStart: 02-01-2025 End: 21-31-0666Vngjji Tim VILLEDA Work Phone: NOHZ BCP OBStart: 02-01-2025 End: 44-30-5315Kghsua Tim VILLEDA Work Phone: NOQR BCP OBStart: 02-01-2025 End: 11-66-6595Ceoidh outpatient visit 15 minutesAmy Mitchel VILLEDA Work Phone: noms BCP OBComment on above:Nausea and vomiting, unspecified vomiting type (Primary Dx); First trimester ([facility]); 11 weeks gestation of ([facility])Start: 02-01-2025 End: 40-36-8390hddlpxhmvpTXS RAMEYNot AvailableStart: 01-22-2025 End: 20-62-2500Nqzlokabf Result EncounterCorey April DO Work Phone: noms External Department UnsolicitedStart: 01-22-2025 End: 65-79-0487Ppvufmqrm Result EncounterCorey April DO Work Phone: noMS External Department UnsolicitedStart: 01-12-2025 End: 98-37-7945Ynbipx outpatient visit 5 minutesFakay Peterson Nomshaina Bcp ObNOMS BCP OBComment on above:GA: 1f0fQmjpo: 01-12-2025 End: 08-43-0587ihnioqcifxDDL RAMEYNot AvailableStart: 09-12-2024 End: 42-66-3479Uicgud outpatient visit 25 minutesKoffi Uriarte MD Work Phone: [facility] CareComment on above:Benign essential hypertension (Primary Dx); Seizure (Multi); Vitamin B12 deficiency; Fatigue, unspecified type; Well adult health check; Vitamin D deficiencyStart: 09-12-2024 End: 18-92-5659Uauwgrq encounter statusKoffi Uriarte MD Work Phone: [facility] Work Phone: Start: 09-12-2024 End: 46-81-8187gmcfejeqmpMWAGSVA A [facility] Start: 09-12-2024 End: 97-87-7495Nfhsgznzf for general adult medical examination without abnormal findingsMON[facility] AmbulatoryStart: 05-03-2024 End: 16-82-3988Llcmah outpatient visit 25 minutesNedra Calderon MD Work Phone: [facility] on [facility]:Seizure (Multi) (Primary Dx)Start: 05-03-2024 End: 18-97-4346hdbokdlovyHIZGPE M [facility] AmbulatoryStart: 04-13-2024 End: 37-55-7412dcwplrprvzYmfjxlb HARWOODFacility:FTMCStart: 03-30-2024 End: 99-91-8990lqeiqpexasQdwk T AMESFacility:FTMCStart: 12-15-2023 End: 65-95-1763wilugxweobDodb ProviderFacility:[facility] Systemtart: 11-09-2023 End: 96-76-5988fheyqwsffoQdcbigkbyThe [facility] Work Phone: Start: 11-09-2023 End: 70-11-1476Woxdihf encounter procedureCone [facility] Work Phone: Start: 08-04-2023 End: 47-41-7538ttptlvtnxcNtsnk FazioFacility:[facility] Start: 08-03-2023 End: 81-67-8796Zehixdwxu Result EncounterCorey April DO Work Phone: noms External Department UnsolicitedStart: 08-03-2023 End: 75-54-6080Lyfcwuvgx Result EncounterCorey April DO Work Phone: noms External Department UnsolicitedStart: 07-26-2023 End: 15-18-5867Ssjtxremr Result EncounterCorey April DO Work Phone: noms External Department UnsolicitedStart: 07-26-2023 End: 79-18-2266Chcezmvgi Result EncounterCorey April DO Work Phone: noms External Department UnsolicitedStart: 07-20-2023 End: 73-33-1474Loeffnyxd Result EncounterCorey April DO Work Phone: noms External Department UnsolicitedStart: 07-20-2023 End: 84-29-6735Oqtugsimi Result EncounterCorey April DO Work Phone: noms External Department UnsolicitedStart: 07-11-2023 End: 34-86-4233Ywpxnnpfi Result EncounterCorey April DO Work Phone: noms External Department UnsolicitedStart: 07-11-2023 End: 39-86-5975Uvzpfjshs Result EncounterCorey April DO Work Phone: noms External Department UnsolicitedStart: 04-30-2023 End: 05-93-9709Ekvrsm outpatient visit 15 minutesNedra Calderon MD Work Phone: [facility] HospitalComment on above:Seizure (CMS/HCC) (Primary Dx)Start: 11-25-2022 End: 52-81-6210zspylxqbswCE WILLIS APRIL .Facility:L2Ultlc: 11-16-2022 End: 35-23-9962bmjspumtzuFB WILLIS APRIL .Facility:W1Utdwa: 16-00-7272Ewwpdoq tobacco non-user cad cap copd pv dmMonminesh A Chapito Work Phone: [facility] Work Phone: Start: 49-72-5327Ztwzxuqc preventive med est patient 18-39 yrsMonique A Chapito Work Phone: [facility] Work Phone: Start: 89-71-3293wuwfhrlyzmPa. Koffi Uriarte Facility:[id number]: 04-16-2022 End: 52-82-3586barcbkeulxTFYOAD K BICANOVSKYFacility:[facility] Start: 81-15-2719Akpvmouhu encounterKavita Sweet DO Work Phone: OB/GynecologyComment on above:Bleeding With Start: 03-24-2022 End: 28-02-6666Ipewivj encounter Harsh Hassan [facility] Start: 79-31-0889Wsnquuudm encounterTammy Ryan [place] Work Phone: CB/GynecologyComment on above:AppointmentStart: 57-59-4029SDFAWUclbiej Alison Uriarte Work Phone: [phone]-Peijcfpfa-Dpivision DO Work Phone: Start: 24-98-4105wsugejszfhRclm Pattie PA-C Work Phone: OB/GynecologyComment on above:Bacteria VaginosisStart: 76-11-9661UXAVADodffox Alison Uriarte Work Phone: mp-[facility] Work Phone: Start: 78-37-7577Iungeq outpatient visit 15 minutes Koffi Uriarte Work Phone: [phone]-VyqbwiverFleck - [employer] DO Work Phone: Start: 18-90-7845Milcck outpatient visit 15 minutes Koffi A Chapito Work Phone: mp-[facility] Work Phone: Start: 58-22-8261MKWXSPiihyfb A Uriarte Work Phone: mp-[facility] Work Phone: Start: 09-09-2021 End: 36-31-0336bcqiprtwuxURYD GLASENAPPFacility:[facility]ertart: 07-04-2021 End: 72-92-9723fkpbcoktucNRCQO NEMETHFacility:[facility] Centertart: 40-71-3659Qtbswihml for gynecological examination (general) (routine) without abnormal findingsTAMMY Summa HealthStart: 45-78-7108Mkrorp outpatient visit 25 minutesMonique A Chapito Work Phone: [phone]-Jfzerwmfv-[facility] Work Phone: Start: 75-33-8199Jkcfz UpdateMonique A Uriarte Work Phone: mp-[facility] Work Phone: Start: 48-13-8646Nftsth outpatient visit 25 minutes Koffi Alison Uriarte Work Phone: mp-[facility] Work Phone: Start: 41-92-5931Cqigkvh encounter procedureMonique A Uriarte Work Phone: mp-[facility] Work Phone: Start: 81-59-8516ARXQUKnybwgq A Uriarte Work Phone: mp-[facility] Work Phone: Start: 39-83-8578Gwfnm UpdateMonique A Uriarte Work Phone: mp-[facility] Work Phone: Start: 99-66-3356Cbcmdd outpatient visit 25 minutes Koffiminesh Uriarte Work Phone: mp-[facility] Work Phone: Start: 38-05-5047Mjcsntx encounter procedureMonique CmgtwtnbcnMZ-Eqzxaotyr-Txvhgoxw SJW DO Work Phone: Start: 82-53-5110Lpxjvpc encounter procedureMonique QpodflfjheHO-Fnvoyjevb-Uvlvtneq SJ DO Work Phone: Start: 14-91-4929Wjrlfmy encounter procedureMonique CjlbxaeqevHL-ZUSJ-[place] Work Phone: Start: 05-09-2020 End: 81-43-1499Ujhfvbj encounter procedureDACibola General Hospitaltart: 05-09-2020 End: 53-69-4464Jjlivjxooo hospital visit by physicianLorain Neuro 1EEGComment on above:ArrivedNonintractable generalized idiopathic epilepsy without status epilepticus (HCC)Start: 84-76-3249Ddjkmdv encounter procedureMonique Chapito AM-CQVH-[place] Work Phone: Start: 04-19-2020 End: 86-36-5205Xqclhohgo department patient visitMICAMANDO Renteria [facility]ertart: 04-18-2020 End: 27-52-0493Smoizjvli department patient visitMicdaquan [place] Work Phone: [facility] EDComment on above:Seizure (HCC) (Primary Dx)Start: 12-22-3424Dkuudtu encounter procedureMonique Chapito FH-ZZGV-[place] Work Phone: Start: 88-11-1008HqajkxsdbmSvmeowk A Richardson [facility]Patient encounter statusKoffi Uriarte Work Phone: mp-[facility] Work Phone: Procedures DateProcedureProcedure DetailPerforming ClinicianStart: 23-23-1668RTM CBC WITH AUTO DIFFAmy Mitchel VILLEDA Work Phone: Start: 88-64-3065Ncplt dip stick/tablet rgnt non-auto w/o micrscpAmy Mitchel VILLEDA Work Phone: Start: 33-24-8897JPP, SERUM, OPEN SPINA BIFIDAAmy Mitchel VILLEDA Work Phone: Start: 17-25-4582Hobgx dip stick/tablet rgnt non-auto w/o micrscpCorey April DO Work Phone: Start: 17-67-1291WI OB ANATOMYCorey April DO Work Phone: Start: 03-95-7912IU OB CERVICAL LENGTHCorey April DO Work Phone: Start: 71-91-2317FNSWSIWAU VAGINITIS (HTRX)Roula VILLEDA Work Phone: Start: 27-80-0590Bzukm dip stick/tablet rgnt non-auto w/o micrscpAmy Mitchel VILLEDA Work Phone: Start: 59-40-3268YFF,APTIMA HPV,AGE GDLNAmy Mitchel VILLEDA Work Phone: Start: 13-95-3376Kcnmbzonfpa observation [Identifier] in Cervix by Cyto stainCorey April DO Work Phone: Start: 69-80-2311Gsdsx dip stick/tablet rgnt non-auto w/o micrscpCorey April DO Work Phone: Start: 82-92-6347WHQ TESTCorey April DO Work Phone: Start: 01-12-2025 End: 39-58-2963Hkovs dip stick/tablet rgnt non-auto w/o micrscpCorey April DO Work Phone: Start: 614414-hltgczkpaxsykq D3 [Mass/volume] in Serum or PlasmaKoffi Uriarte MD Work Phone: Start: 10-92-2385Jdomvejmo (Vitamin B12) [Mass/volume] in Serum or PlasmaMonique Alison Uriarte MD Work Phone: Start: 64-07-0516Pjmyfbyw blood countMonique Alison Uriarte MD Work Phone: Start: 22-86-6935Hmnqbdeenxdhq metabolic panelMonique Alison Uriarte MD Work Phone: Start: 72-02-6897Ypout panelMonique Alison Uriarte MD Work Phone: Start: 98-08-8011HEP WITH REFLEX TO FREE T4 IF ABNORMALMonique Alison Uriarte MD Work Phone: Start: 83-07-6484Glvwa 1996 panel - Serum or Plasma Koffi Chapito REINOSO Work Phone: Start: 37-67-0655RN OB BPP W NON-STRESSCorey April DO Work Phone: Start: 26-94-6322ID OB BPP W NON-STRESSCorey April DO Work Phone: Start: 67-19-3141HW OB BPP W NON-STRESSCorey April DO Work Phone: Start: 85-09-9343TC OB GROWTHCorey April DO Work Phone: Start: 61-57-9094EH OB BPP W NON-STRESSCorey April DO Work Phone: Start: 19-40-8329Ihhgpwihwym observation [Identifier] in Cervix by Cyto stainNedra Calderon MD Work Phone: Start: 62-39-5500Rxnbgmiktra observation [Identifier] in Cervix by Cyto stainCorey April DO Work Phone: Start: 17-97-5028Ylmemhjtmom [Units/volume] in Serum or PlasmaNedra Calderon MD Work Phone: Start: 74-52-1788IRW W Auto Differential panel - Blood Koffi UriarteStart: 82-88-5921Kcnrxgaxiabhk metabolic 2000 panelMonique MumfordStart: 19-45-6377Ngyfpvnjmthb drug not elsewhere specifiedMonique MumfordStart: 72-19-5280Ioroymefudt observation [Identifier] in Cervix by Cyto Valente Calderon MD Work Phone: Start: 24-41-2721OpkmviowvnywdmleofryEUOSWDY MAHAJAN Start: 43-10-4648JLBACJISL REPORTDALUIS RADHAStart: 98-71-1234QWLEXIRLY REPORTHpf ScanningStart: 80-63-8169Sqj brain brain stem w/o w/contrast material SPIKE RADHAStart: 08-82-9522Sjenpjfxoynpvvudklbk w/rec awake&drowsyDAEXCELA HEALTH RADHAStart: 79-55-7354Zho brain brain stem w/o w/contrast materialDaluis Radha Work Phone: Start: 63-66-1167Dljpfwgopahwyhjksema w/rec awake&drowsyDaluis Radha Work Phone: Start: 82-44-1010Knvyl of lactateMICHELE RALOFSKY Start: 97-43-5936Kscqq of prolactinMICHELE RALOFSKYStart: 71-10-4362Ty head/brain w/o contrast materialMICHELE RALOFSKYStart: 48-03-8147Evmfhfqeqa microscopic onlyMICHELE RALOFSKYStart: 85-57-4301Opldf dip stick/tablet rgnt auto w/o microscopyMICHELE RALOFSKYStart: 09-51-8000Dusmr count complete auto&auto difrntl wbcMICHELE RALOFSKYStart: 78-84-9292Syzjnrjkxhcnm metabolic panelMICHELE RALOFSKYStart: 15-46-6113Gfskvkimgkjg chorionic qualitativeMICHELE RALOFSKYStart: 49-54-3771GKTP NPO, NOWMICHELE RALOFSKYStart: 77-02-8458RMGMLCN PRECAUTIONSMICHELE RALOFSKYStart: 08-50-9264EAJPMU LOCK IVMICHELE RALOFSKYStart: 68-53-0550Hpmtv of lactateMichael S Allons Work Phone: Start: 51-63-0239Zufaqtcpus microscopic onlyMichael S Allons Work Phone: Start: 87-23-7455Qqthu dip stick/tablet rgnt auto w/o microscopyMichael S Allons Work Phone: Start: 14-50-1730Pctbx count complete auto&auto difrntl wbcMichael S Allons Work Phone: Start: 81-44-2836Repwykbwryniz metabolic panelMichael S Allons Work Phone: Start: 16-80-5450Cfbrmtttufbn chorionic qualitative Tu S Allons Work Phone: History of No history of surgeryMonique ChapitoNo history of surgeryMonique A Uriarte Work Phone: Plan of Treatment DateCare ActivityDetailAuthorStart: 82-67-2094Tqovyj Vaccines (1 of 2)Zoster Vaccines (1 of 2)[facility]: 20-18-0637FUgD/Tdap/Td Vaccines (9 - Td or Tdap)DTaP/Tdap/Td Vaccines (9 - Td or Tdap)[facility]: 62-13-2701Lbvlg panelLipid PanelUnMetroHealth [facility]: 98-37-9232Twjuqgokv for malignant neoplasm of cervixNOMS HealthcareStart: 64-71-9933XMrB/Tdap/Td Vaccines (8 - Td or Tdap) DTaP/Tdap/Td Vaccines (8 - Td or Tdap)[facility]Stcaspar: 60-11-8169Ndpfkgyxh for malignant neoplasm of cervixUnMetroHealth [facility]: 42-62-7241Qujfprpte for malignant neoplasm of cervixNOMS HealthcareStart: 05-29-2025 End: 00-69-0524Lpngmvb encounter procedureNOMS Giselle OBGYNComment on above: ArrivedStart: 05-07-2025 End: 98-23-9251Iuzpuqh encounter kuppoeejm05/20/2025 2:00 PM EDT Office Visit [address] [place] [phone] [place] [address] [place] [address] [facility]Start: 04-30-2025 End: 67-78-8937ZYB panel - Blood by Automated countCBC Lab Routine Diabetes mellitus screening Expected: 04/30/2025 (Approximate), Expires: 04/30/2026[facility] Work Phone: comment on above:Expected: 04/30/2025 (Approximate), Expires: 04/30/2026Start: 04-30-2025 End: 63-30-5904Mjjrmgeagwa of glucose 1 hour after glucose challenge for glucose tolerance testGlucose tolerance, 1 hour Lab Routine Diabetes mellitus screening Expected: 04/30/2025 (Approximate), Expires: 04/30/2026[facility] HealthcareComment on above:Expected: 04/30/2025 (Approximate), Expires: 04/30/2026Start: 04-30-2025 End: 36-08-0652Cbybjwq encounter euhvktizp17/13/2025 9:50 AM EDT Routine [facility] [place] [address] [place], [id number] Roula Grullon PA [address] [place] [address] [facility]elle OBGYNStart: 04-04-2025 End: 93-29-9776Fvxcerj encounter dwerhevji66/17/2025 3:10 PM EDT Routine [facility] WOODGYN [address] [place], [id number] Willis Chen DO [address] [place] [address] NOMShaina [place] OBGYNStart: 74-99-8657AUMSJ- 19 Vaccine ( season)COVID-19 Vaccine ( season)[facility] HealthcareStart: 32-17-7500Dfryiqano vaccinationInfluenza Vaccine (#1)[facility] HealthcareStart: 03-14-2025 End: 66-27-3583Kxnaahyjtpju / ancillary services eraqlpchym71/27/2025 3:00 PM EDT Ancillary Procedure [facility] [address] [place] [address] QCDK Giselle OBGYNStart: 03-07-2025 End: 96-80-9728Nocjdco encounter procedureNOMS [place] OBGYNComment on above: ArrivedStart: 03-07-2025 End: 27-36-9453Cphru fetoprotein, maternalAlpha fetoprotein, maternal Lab Routine Second trimester ([facility]) 16 weeks gestation of ([facility]) Expected: 03/07/2025 (Approximate), Expires: 09/07/2025[facility] Comment on above:Expected: 03/07/2025 (Approximate), Expires: 09/07/2025Start: 03-07-2025 End: 96-27-1903IE for pregnancyUS OB 14+ weeks anatomy scan Imaging Routine Screening, , for anatomic survey ([facility]) Expected: 03/07/2025, Expires: 06/07/2025[facility] HealthcareComment on above:Expected: 03/07/2025, Expires: 06/07/2025Start: 02-21-2025 End: 79-93-4943Amjjklxdyvsp / ancillary services glmjgytlsv52/06/2025 3:00 PM EDT Ancillary Procedure [facility] [place] [facility] [address] [place] [address] TDWE Giselle OBGYNStart: 02-12-2025 End: 74-61-5964Lrjbjnd encounter /28/2025 2:20 PM EDT Office Visit [facility] [address] [place] [phone] [place] [address] [place] [address] [facility] CareStart: 02-07-2025 End: 29-25-7811Ycurqkz encounter procedureNOST. MARY [facility] OBComment on above:Arrived Start: 02-07-2025 End: 50-58-7111FY for pregnancyUS OB less than 14 weeks early Imaging Routine Missed menses Subchorionic hematoma in second trimester, single or unspecified fetus ([facility]) Expected: 02/07/2025, Expires: 05/10/2025[facility] Work Phone: comment on above:Expected: 02/07/2025, Expires: 05/10/2025Start: 02-01-2025 End: 13-42-9088Dgdfonq encounter /17/2025 9:20 AM EDT Office Visit [facility] [address] [place] [address] Roula Grullon PA [address] [place] [address] [facility]HIGHLAND [facility] OBComment on above:ArrivedStart: 01-12-2025 End: 11-11-2394PPI/RhABO/Rh Lab Routine Missed menses , unspecified gestational age ([facility]) Expected: 01/12/2025 (Approximate), Expires: 01/12/2026[facility] HealthcareComment on above:Expected: 01/12/2025 (Approximate), Expires: 01/12/2026Start: 01-12-2025 End: 90-87-8678Nrwad type and Indirect antibody screen panel - BloodType and screen Lab Routine Missed menses , unspecified gestational age ([facility]- HCC) Expected: 01/12/2025 (Approximate), Expires: 01/12/2026[facility] Work Phone: comment on above:Expected: 01/12/2025 (Approximate), Expires: 01/12/2026Start: 01-12-2025 End: 15-21-8491Ryjff of abuse panel - Urine by Screen methodRapid drug screen, urine Lab Routine , unspecified gestational age ([facility]) Encounter for supervision of normal first in first trimester ([facility]) Expected: 01/12/2025 (Approximate), Expires: 01/12/2026NOMS HealthcareComment on above: Expected: 01/12/2025 (Approximate), Expires: 01/12/2026Start: 05-03-2024 End: 45-65-2132jnymUCTxisk [Mass/volume] in Serum or PlasmaLamotrigine level Lab Routine Seizure (Multi) Expected: 05/03/2024 (Approximate), Expires: 05/03/2025 [facility] Service Area Work Phone: comment on above:Expected: 05/03/2024 (Approximate), Expires: 05/03/2025Start: 74-18-5486OEABF-19 Vaccine ( season)COVID- 19 Vaccine ( season)[facility]: 77-29-7941TABZO-19 Vaccine ( season)COVID-19 Vaccine ( season)[facility]: 45-90-8601Ourgccwrw vaccination Influenza Vaccine (#1)[facility]: 10-02-2023 Screening for malignant neoplasm of cervixHPV/CotestNOMS HealthcareStart: 60-42-6997UINMGTNV, Provider: Koffi Uriarte, Status: Pen, Time: 9:00 AM PHYSICAL, Provider: Koffi Uriarte, Status: Pen, Time: 9:00 LSNF-KBHX-[place] Work Phone: Start: 08-02-2023 End: 31-47-0724Zxleyqb encounter dviipyuxg50/15/2024 9:00 AM EST Office Visit [facility] [address] [place] [phone] [place] [address] [place] [address] [facility] HospitalStart: 70-04-7037SGC TESTINGPAP TESTINGUK Healthcaretart: 17-67-0584Xamynicpg for malignant neoplasm of cervixSt. Vincent Hospital: 12-24-2022 VIRFUVHOME, Provider: Nedra Calderon, Status: Pen, Time: 10:00 AMVIRFUVHOME, Provider: Nedra Calderon, Status: Pen, Time: 10:00 DSHX-Qbqnmlpok-Euvckupb Dat[employer] DO Work Phone: Start: 35-28-7321KCPJJINJ, Provider: Koffi Uriarte, Status: Pen, Time: 9:50 AMPHYSICAL, Provider: Koffi Uriarte, Status: Pen, Time: 9:50 MEXK-ROVR-[place] Work Phone: Start: 03-24-2022 End: 70-59-7890Fxdduvgoleakgeewrq.beta subunit [Units/volume] in Serum or Plasma HCG QUANTITATIVE Lab Routine Bleeding in early Expected: 03/24/2022, Expires: 05/24/2022[facility] Work Phone: Comment on above:Expected: 03/24/2022, Expires: 05/24/2022tart: 04-98-2745Qwapysmzo vaccinationINFLUENZA (#1)[facility] Start: 33-77-7685Xidhtyn stimulating hormone measurementCreek Nation Community Hospital – OkemahStart: 03-71-6783ITQOBNGOAK, Provider: Nedra Calderon, Status: Pen, Time: 11:30 AMFUVGENERAL, Provider: Nedra Calderon, Status: Pen, Time: 11:30 LFIB-Rsunzqbto-Uxwbsixr SJW DO Work Phone: Start: 42-87-3815SWL, Provider: Koffi Uriarte, Status: Pen, Time: 1:00 PMFUV, Provider: Koffi Uriarte, Status: Pen, Time: 1:00 LFNN-VXES-[place]joc [place] Work Phone: Start: 12-04-6344ASJUS-19 VACCINE (3 - Booster for Pfizer series)COVID-19 VACCINE (3 - Booster for Pfizer series)[facility] Start: 46-45-4425IYFOCKDQLG, Provider: Nedra Calderon, Status: Pen, Time: 2:00 PMFUVGENERAL, Provider: Nedra Calderon, Status: Pen, Time: 2:00 SNHZ-JYRL-[place]hho [place] Work Phone: Start: 02-74-0054RPAVGGIRYZ, Provider: Nedra Calderon, Status: Pen, Time: 11:00 AMFUVGENERAL, Provider: Nedra Calderon, Status: Pen, Time: 11:00 VDKU-LBUJ-Lqkh [place] Work Phone: Start: 14-52-8252ZVM, Provider: Koffi Uriarte, Status: Pen, Time: 3:40 PMFUV, Provider: Koffi Uriarte, Status: Pen, Time: 3:40 VFOE-WBMN-Sccb [place] Work Phone: Start: 05-36-0400VNK, Provider: Koffi Uriarte, Status: Pen, Time: 2:00 PMFUV, Provider: Koffi Uriarte, Status: Pen, Time: 2:00 YNLC-EDYW-Nwgf [place] Work Phone: Start: 71-33-1056YJBVE-19 Vaccine (3 - Pfizer series) COVID-19 Vaccine (3 - Pfizer series)[facility]Start: 95-63-3170BRH Vaccines (1 - 3-dose SCDM series)HPV Vaccines (1 - 3-dose SCDM series)[facility]: 15-87-6984Mqcqymdka vaccinationFlu vaccine (#1) [facility]: 76-87-1446MKgL/Tdap/Td vaccine (7 - Td)DTaP/Tdap/Td vaccine (7 - Td)[facility]: 21-04-5078Uslwl microalbumin profile DTAP,TDAP,TD (7 - Td or Tdap)[facility] Healthcaretart: 96-77-2537Zygfnjilb for malignant neoplasm of cervixUnMercer County Community HospitalStcaspar: 2012 Hepatitis B Vaccines (1 of 3 - 19+ 3-dose series)Hepatitis B Vaccines (1 of 3 - 19+ 3-dose series)[facility] HospitalStart: 32-31-2555RCPHJDXFO C SCREENINGHEPATITIS C SCREENINGUK Healthcaretart: 35-74-0771Knhyqgbff C screeningHepatitis C ScreeningSt. [facility] Hospital: 26-44-2530BBU SCREENINGHIV SCREENINGUK Healthcaretart: 14-36-6164DND screeningHIV screenNorwalk Memorial Hospital: 05-16-3904Cubhffw of varicella vaccinationVaricella Vaccines (1 of 2 - 13+ 2-dose series)[facility] HospitalStart: 71-57-3294Cfwfaaqwp vaccination Varicella Vaccines (1 of 2 - 13+ 2-dose series)[facility] Start: 60-84-4196Ddhap depression screening assessmentDEPRESSION SCREENING [facility] Healthcaretart: 52-05-1815NJU vaccine (1 - 2-dose series)HPV vaccine (1 - 2-dose series)[facility]: 62-09-8397CTlL/Tdap/Td Vaccines (1 - Tdap)DTaP/Tdap/Td Vaccines (1 - Tdap)[facility] HospitalStcaspar: 50-83-5387Obqlrziku vaccinationVaricella Vaccines (1 of 2 - 2-dose childhood series)[facility]: 67-56-1626DNT Vaccines (1 of 1 - Standard series) MMR Vaccines (1 of 1 - Standard series)[facility] HospitalStart: 86-84-0681Edrsanwdt vaccine (1 of 2 - 2-dose childhood series)Varicella vaccine (1 of 2 - 2-dose childhood series)[facility]: 71-40-2414MMQ screeningHIV Screening [facility]: 35-92-1274Afpxi panelLipid Panel [facility]: 30-49-9251Ildkbc Adult PhysicalYearly Adult PhysicalUnMercer County Community HospitalBacteria identified in Urine by CultureUrine culture Microbiology Routine Missed menses Ordered: 01/12/2025[facility] HealthcareComment on above:Ordered: 01/12/2025BC W Auto Differential panel - BloodCBC and differential Lab Routine Missed menses , unspecified gestational age ([facility]) Ordered: 01/12/2025[facility] HealthcareComment on above: Ordered: 01/12/2025HLAMYDIA TRACHOMATIS (GENITO/STI)CHLAMYDIA TRACHOMATIS (GENITO/STI) Lab Routine STD exposure Ordered: 03/07/2025[facility] HealthcareComment on above:Ordered: 03/07/2025 End: 87-12-0672XS Head WO ContrastCT Head WO Contrast Imaging STAT Once for 1 Occurrences starting 04/18/2020 until 04/18/2020[facility], KYComment on above:Once for 1 Occurrences starting 04/18/2020 until 04/18/2020CT Head WO ContrastCT Head WO Contrast Imaging STAT 04/18/2020 11:15 PM EDC[facility], KYCytology Cervical or vaginal smear or scraping studyPap Smear Pathology and Cytology Routine Well woman exam with routine gynecological exam Ordered: [facility] HealthcareComment on above:Ordered: 03/07/2025Hemoglobin A1c/Hemoglobin.total in BloodHemoglobin A1c Lab Routine Missed menses , unspecified gestational age ([facility]) Ordered: 01/12/2025[facility] HealthcareComment on above:Ordered: 01/12/2025Hepatitis B virus surface Ag [Presence] in Serum or Plasma by ImmunoassayHepatitis B surface antigen Lab Routine Missed menses , unspecified gestational age ([facility]) Ordered: 01/12/2025[facility] HealthcareComment on above:Ordered: 01/12/2025Hepatitis C virus Ab [Presence] in Serum or Plasma by ImmunoassayHepatitis C antibody Lab Routine Missed menses , unspecified gestational age ([facility]) Ordered: 01/12/2025[facility] HealthcareComment on above:Ordered: 01/12/2025HIV-1/HIV-2 antigen/antibody combination immunoassayHIV-1 and HIV-2 antibodies Lab Routine Missed menses , unspecified gestational age ([facility]) Ordered: 01/12/2025[facility] HealthcareComment on above:Ordered: 01/12/2025Human papilloma virus DNA [Presence] in Unspecified specimen by Probe with amplificationHPV DNA probe, amplified Microbiology Routine Well woman exam with routine gynecological exam Ordered: 03/07/2025[facility] HealthcareComment on above:Ordered: 03/07/2025Neisseria gonorrhoeae DNA [Presence] in Unspecified specimen by HUMERA with probe detection Neisseria gonorrhea DNA probe, direct Lab Routine STD exposure Ordered: 03/07/2025[facility] HealthcareComment on above:Ordered: 03/07/2025 End: 80-48-1858LfhantjifTictnymst Lab STAT One Time for 1 Occurrences starting 04/18/2020 until 04/18/2020[facility], KYComment on above:One Time for 1 Occurrences starting 04/18/2020 until 04/18/2020ProlactinProlactin Lab STAT 04/18/2020 11:17 PM [facility], KYReagin Ab [Presence] in Serum by RPR RPR Lab Routine Missed menses , unspecified gestational age ([facility]) Ordered: 01/12/2025[facility] HealthcareComment on above:Ordered: 01/12/2025Rubella antibody, IgGRubella antibody, IgG Lab Routine Missed menses , unspecified gestational age ([facility]) Ordered: 01/12/2025[facility] HealthcareComment on above:Ordered: 01/12/2025SURESWAB(R) ADVANCED VAGINITIS PLUS, TMASURESWAB(R) ADVANCED VAGINITIS PLUS, TMA Pathology and Cytology Routine Vaginal discharge Ordered: 03/07/2025[facility] Healthcare Work Phone: comment on above:Ordered: 03/07/20253955SL-LMCD-[place] Work Phone: cleveland ClinicNEGATED: Highlighted row has been ruled out!Planned Goals not nbiuawsjxcWH-NFIB-[place]owj [place] Work Phone: Immunizations Immunization DateImmunizationNotesCare DslpmgpdXhbprequ48-05-2872eaxzrwlia B vaccine, adult dosageKoffi Uriarte MD Work Phone: [facility] Work Phone: [phone] toxoid, reduced diphtheria toxoid, and acellular pertussis vaccine, adsorbedKoffi Uriarte MD Work Phone: [facility] Work Phone: [phone], injectable, quadrivalent, preservative freeMonique Chapito REINOSO Work Phone: [facility]10-05-2023influenza virus vaccine, unspecified formulationNedra Calderon MD Work Phone: [facility] Work Phone: [phone], injectable, quadrivalent, preservative freeMonique A Chapito Work Phone: mp-WSPCM[facility] [employer] Work Phone: [phone], injectable, quadrivalent, preservative freeMonique A Uriarte Work Phone: mp-WSPCMJJ Sales Work Phone: [phone]-JaiEHyhk COVID-19 Vacc 30 MCG/0.3ML Intramuscular SuspensionMonique A Chapito Work Phone: [employer] Work Phone: [phone]-MekWNkok COVID-19 Vacc 30 MCG/0.3ML Intramuscular SuspensionMonique A Chapito Work Phone: [facility] Work Phone: [phone], injectable, Madin Lamar Canine Kidney, preservative free, quadrivalentMonique A Chapito Work Phone: [facility] [employer] Work Phone: [phone], injectable, quadrivalent, contains preservativeMonique A Chapito Work Phone: [facility] Work Phone: [phone] toxoid, reduced diphtheria toxoid, and acellular pertussis vaccine, adsorbedMonique A Uriarte Work Phone: mp-WSPCThe Hotel Barter NetworkMontgomery Work Phone: [phone]artuua, injectable, quadrivalent, preservative freeMercy Hospital St. Louis Alison ClementeUriarte Work Phone: mp-WSPCThe Hotel Barter NetworkMontgomery Work Phone: [phone] 100-938306428152-35-1447aekcwtxlwwoq polysaccharide vaccine, 23 valentMonon license of [facility] A Uriarte Work Phone: mp-WSPCQqbaobao.comMontgomery Work Phone: [phone]dgngndg skin test; purified protein derivative solution, intradermalDoylestown Health, [place] 90-70-8121rmaagqooce skin test; purified protein derivative solution, intradermalDoylestown Health, SK32-45-5689pylzrpc toxoid, reduced diphtheria toxoid, and acellular pertussis vaccine, adsorbedDay[facility]08-10-2007meningococcal polysaccharide (groups A, C, Y and W-135) diphtheria toxoid conjugate vaccine (MCV4P)[facility], FE99-31-8487Vtbwxeovjbmha, MCV4, unspecified conjugate formulation(groups A, C, Y and W-135)[facility] 33-83-7432gruwxibkpg, tetanus toxoids and acellular pertussis vaccineDayton Osteopathic Hospital08-25-1999diphtheria, tetanus toxoids and acellular pertussis vaccine, unspecified formulationThe [facility] Uriarte Work Phone: mp-WSPCThe Hotel Barter NetworkMontgomery Work Phone: [phone]itwlxzmj influenzae type b vaccine, HbOC conjugateDayton Osteopathic Hospital08-25-1999measles, mumps and rubella virus vaccineDayton Osteopathic Hospital08-25-1999poliovirus vaccine, inactivatedDoylestown Health, CB54-79-3291etjvwpwal poliovirus vaccine, live, oralDoylestown Health, UQ19-15-8205liyugspjjm, tetanus toxoids and acellular pertussis vaccineDayton Osteopathic Hospital06-22-1995diphtheria, tetanus toxoids and acellular pertussis vaccine, unspecified formulationMercy Hospital St. Louis A Chapito Work Phone: mp-WSPC-[place] Work Phone: [phone]oqpwf influenzae type b vaccine, conjugate unspecified formulationDoylestown Health, [place] 29-10-0078qxelqjisjfm influenzae type b vaccine, PRP-OMP conjugateMercy Hospital St. Louis A Uriarte Work Phone: mp-WSPC-[place] Work Phone: [phone], unspecifiedDoylestown Health, EX65-87-7397bdpajso, mumps and rubella virus vaccineDayton Osteopathic Hospital04-06-1995poliovirus vaccine, inactivatedDayton [facility]opathic Hospital12-01-1994hepatitis B vaccine, pediatric or pediatric/adolescent dosageMercy Hospital St. Louis A Uriarte Work Phone: cAkron Children's HospitalZpbhii77-00-4668vxcxpeucl B vaccine, unspecified formulationD[facility]estown Health, SV69-21-5089 diphtheria, tetanus toxoids and acellular pertussis vaccineRiddle Hospital, KG53-51-5825hyfsrlsoqi, tetanus toxoids and pertussis vaccine [facility]09-29-1994haemophilus influenzae type b vaccine, conjugate unspecified formulationDoylestown Health, PW52-28-8625eejhcejrezt influenzae type b vaccine, HbOC conjugateSara Glassilvia PA-C Work Phone: [facility] HospitalVfgyie43-70-1889asxhgyxname influenzae type b vaccine, PRP-OMP conjugateMercy Hospital St. Louis A Uriarte Work Phone: mp-WSPCQqbaobao.comMontgomery Work Phone: [phone], unspecifiedD[facility]estown Health, LU84-13-8740aeljwaqmyn vaccine, inactivatedMicMarymount Hospital09-29-1994trivalent poliovirus vaccine, live, oralDoylestown Health, QH89-62-6361xkbstvjtol, tetanus toxoids and acellular pertussis vaccineDoylestown Health, MI10-09-6816 diphtheria, tetanus toxoids and pertussis vaccineDayton Osteopathic Hospital07-28-1994haemophilus influenzae type b vaccine, conjugate unspecified formulationDoylestown Health, OW94-00-0592armfdqezbir influenzae type b vaccine, HbOC conjugateSara Glasenapp PA-C Work Phone: [facility] HospitalVmxrac50-26-2864bnwavprngyd influenzae type b vaccine, PRP-OMP conjugateMonique A Uriarte Work Phone: mp-eVigilo Work Phone: [phone], unspecifiedDoylestown Health, AJ35-75-0165ximvuiccgg vaccine, inactivatedSt. Francis Hospital07-28-1994trivalent poliovirus vaccine, live, oralDoylestown Health, OO30-49-9317qmbnmeeff B vaccine, pediatric or pediatric/adolescent dosageMonique A Uriarte Work Phone: cAkron Children's HospitalCahmqy16-02-9474hwfgeqszm B vaccine, unspecified formulationD[facility]estown Health, FS82-51-9461 diphtheria, tetanus toxoids and acellular pertussis vaccineKaleida Health VJ06-81-2847ktyxnivopn, tetanus toxoids and pertussis vaccine [facility]05-19-1994haemophilus influenzae type b vaccine, conjugate unspecified formulationDoylestown Health, WE59-83-8939qwrxkviivzx influenzae type b vaccine, HbOC conjugateSara Glasenapp PA-C Work Phone: [facility] HospitalRkdhht01-22-0195ityogrditya influenzae type b vaccine, PRP-OMP conjugateMonique A Uriarte Work Phone: mp-[employer]ilo Work Phone: [phone]bkhgb B vaccine, pediatric or pediatric/adolescent dosageMonminesh Uriarte Work Phone: cAkron Children's HospitalCwcdkw95-46-3328xhwlazpgg B vaccine, unspecified formulationDoylestown Health, BI63-98-2511Bgq, unspecifiedD[facility], JI85-10-6310vvcxtonzdv vaccine, inactivatedMicOhioHealth Grady Memorial Hospital05-19-1994trivalent poliovirus vaccine, live, oralMicKindred Hospital [place], [place] Payers DatePayer CategoryPayerPolicy [id number] Private [facility] [id number] 92-71-2272Xana-lcy52-93-6421Bwlvodw Care (Private) [id number]2630.45862-19-4957Ucljlzh Health [id number] Health Insurance [id number]upt45-69-8480 UnknownMMO MMO SUPERMED PLUS [id number] 2020-Present [phone] [address] [place] [address] [id number] 1.2.840.472860.1.13.159.2.7.3.350[id number] [id number] 2.16.840.1.224058.3.57[id number] 2.16.840.1.021453.3.57[id number] 2..840.1.555270.3.57[id number] 2.840.1.164079.3.57[id number] 2.840.1.226914.3.57[id number] 2.840.1.330830.3.57[id number] 2.840.1.998630.3.57[id number] 2.840.1.787094.3.57[id number] 2.840.1.416827.3.57[id number] 2.840.1.924032.3.57[id number] 2.840.1.169178.3.57[id number] 2.840.1.666837.3.57[id number] 2.840.1.101797.3.57[id number] 2.840.1.198819.3.57[id number] 2.16.840.1.288159.3.57[id number] 2.16.840.1.121722.3.57[id number] 2.16.840.1.124038.3.57[id number] 2.16.840.1.186308.3.57[id number] 2.16.840.1.442314.3.57[id number] 2.16.840.1.101358.3.579.2.[id number] 1.2.840.555258.1.13.239.2.7.3.531090.243Ty[id number] 2.16.840.1.95[id number] 2u33je5s-2g7a-27ug-06i5-g42k23dzbt36 Social History DateTypeDetailFacilityStart: 04-18-2020 End: 15-00-2398Pydjvbw smoking status NHISNever smokerUK Healthcaretart: 04-18-2020 End: 71-25-1859Ycdarni use and exposureNever usedNorwalk Memorial Hospital: 04-18-2020 End: 63-93-9194Pwujbmm intakeCurrent drinker of alcohol (finding)[facility]: 27-74-4099Crimpbi SDOH Znljiadqr1RoqopNorwalk Memorial Hospital: 46-08-9584Qmnfrpx SDOH Food Uhwww4IsxekNorwalk Memorial Hospital: 38-55-4400Cjjswku SDOH Transport Ssr5VuemwNorwalk Memorial Hospital: 80-54-1114Zmrgpfs Comment occasionallyNorwalk Memorial Hospital: 53-35-2240Pzy Assigned At BirthNot on [place], [place]: 04-20-2023 End: 42-58-7988Yvyajvpo to SARS-CoV-2 (event)Not [facility] Southwoodsart: 05-03-2024 End: 57-83-4325Vyrgz smokerNever xvknkxGK-JMHX-Skqs [place] Work Phone: Start: 06-17-2225Gmzzgtr smoking statusNeverRiverview Health Institutetart: 05-03-2024 End: 32-04-6131Fix Assigned At [facility] Hospitaltart: 06-05-5326Slh Assigned At [facility] Hospitaltart: 99-18-0968Rgfmayxyh beverage intakeEx-drinker (finding)[facility] Work Phone: How often to you have a drink containing alcohol?Never [facility] Work Phone: Start: 04-23-2024 End: 19-23-6049Ohzsugbz to SARS-CoV-2 (event)YesPaulding County HospitalStart: 14-78-4688Nnuyiok CommentSociallyPaulding County Hospital Work Phone: Tobacco smoking status NHISTobacco smoking consumption unknownNOWY HealthcareStart: 39-44-1246ImavxigqbYLAA HealthcareStart: 07-48-6248Bzmdej identityIdentifies as female gender (finding)[facility] Start: 52-21-7171Hqsdjg orientationHeterosexual (finding)[facility] HealthcareNEGATED: Highlighted row--ZC-FLMK-FuzceVigilo Work Phone: NEGATED: Highlighted rowStart: NINFHistory of tobacco usePassive smokerPaulding County Hospital Work Phone: Goals DatePatient GoalDesired Activity/StatePersonal health goal Functional Status DateAssessmentResultFacilityNEGATED: Highlighted rowFunctional performance Functional status health issues are not documented KueedryOA-FYXU-Pdpm [place] Work Phone: Mental Status DateAssessmentResultFacilityNEGATED: Highlighted rowCognitive function [Interpretation]Cognitive status health issues are not documented Disease CQ-FOVD-Rngm [place] Work Phone: Clinical Notes 08-09-2017 to 04-30-2025 Note Date & VmkkBfwqFohynuye56-39-8930 History of Present illness Narrative* CHRISTIANA Mills [...] Problems Diagnosis Date Noted Hypertension 01/14/2023 Seizure ([facility]) 07/09/2021 Breech presentation, no version ([facility] 07/29/2023 Resolved Ambulatory Problems Diagnosis [...] ASSESSMENT & PLAN ICD-10-CM 1. Second trimester ([facility]) Z34.92 2. 24 weeks gestation of ([facility]) Z3A.24 3. Hypertension, unspecified type I10 4. Seizure ([facility]) R56.9 Return OB: Patient presents [...] given 1-hr glucose order to obtain at [facility]. No orders of the defined types were placed in this encounter. Follow Up: Patient is to return to office in 4 weeks for routine OB appointment. Documented by Kim Sousa MA on behalf of: CHRISTIANA Mills documented in this encounterSaint Luke's East HospitalTquzwfsjgt36-11-3082 History of Present illness Narrative* Willis Chen [...] Problems Diagnosis Date Noted Hypertension 01/14/2023 Seizure ([facility]) 07/09/2021 Breech presentation, no version ([facility]) 07/29/2023 Resolved Ambulatory Problems Diagnosis Date [...] nursing note reviewed. Exam conducted with a soda fountain manager present. Vitals: Estimated body mass index is 27.04 kg/m as calculated from the following: Height as of 11/16/22: 5' 9 . Weight as of this encounter: 183 lb 1.9 oz. BP: 110/70 Patient's last menstrual period was 11/13/2024. Assessment/Plan Encounter Diagnosis: ICD-10-CM 1. 20 weeks gestation of ([facility]) Z3A.20 POCT urinalysis dipstick manually resulted 2. Second trimester ([facility]) Z34.92 POCT urinalysis dipstick manually resulted [...] of: Willis Chen DO documented in this encounterSaint Luke's East HospitalUldlgvfmhq97-02-1178 History of Present illness Narrative* CHRISTIANA Mills [...] Problems Diagnosis Date Noted Hypertension 01/14/2023 Seizure ([facility]) 07/09/2021 Breech presentation, no version ([facility]) 07/29/2023 Resolved Ambulatory Problems Diagnosis Date [...] HPV DNA probe, amplified 2. Second trimester ([facility]) Z34.92 POCT urinalysis dipstick manually resulted Alpha fetoprotein, maternal Alpha fetoprotein, maternal 3. 16 weeks gestation of ([facility]) Z3A.16 POCT urinalysis dipstick manually resulted Alpha fetoprotein, maternal Alpha fetoprotein, maternal 4. Vaginal discharge N89.8 SURESWAB(R) ADVANCED VAGINITIS PLUS, TMA 5. STD exposure Z20.2 CHLAMYDIA TRACHOMATIS (GENITO/STI) Neisseria gonorrhea DNA probe, direct 6. Screening, , for anatomic survey ([facility]) Z36.89 OB 14+ weeks anatomy scan [...] by CHRISTIANA Mills on behalf of: CHRISTIANA Milsl documented in this encounterSaint Luke's East HospitalUtunhictie07-40-0504 History of Present illness Narrative* Cyndi Andrade, TELETYPIST - 02/07/2025 3:10 PM EDT Reason for [...] Problems Diagnosis Date Noted Hypertension 01/14/2023 Seizure ([facility]) 07/09/2021 Breech presentation, no version ([facility]) 07/29/2023 Resolved Ambulatory Problems Diagnosis [...] nursing note reviewed. Exam conducted with a soda fountain manager present. Vitals: Estimated body mass index is 26.11 kg/m as calculated from the following: Height as of 11/16/22: 5' 9 . Weight as of this encounter: 176 lb 12.8 oz. BP: 114/74 Patient's last menstrual period was 11/13/2024. ASSESSMENT & PLAN ICD-10-CM 1. First trimester ([facility]) Z34.91 POCT urinalysis dipstick manually resulted 2. 12 weeks gestation of ([facility]) Z3A.12 POCT urinalysis dipstick manually resulted [...] or undercooked meat, and stay away from [facility]. Patient has been consulted regarding any further do's and don'tsof . Patient voiced understanding and all questions and concerns were answered. Orders Placed This Encounter Procedures POCT urinalysis dipstick manually resulted Follow Up: Patient is to return in 4 weeks for routine OB appointment. Documented by Cyndi Andrade LPN on behalf of: Willis Chen DO documented in this encounterSaint Luke's East HospitalGyzciwxkco15-91-0155 History of Present illness Narrative* CHRISTIANA Mills [...] Problems Diagnosis Date Noted Hypertension 01/14/2023 Seizure ([facility]) 07/09/2021 Breech presentation, no version ([facility]) 07/29/2023 Resolved Ambulatory Problems Diagnosis [...] ASSESSMENT & PLAN ICD-10-CM 1. First trimester ([facility]) Z34.91 2. 11 weeks gestation of ([facility]) Z3A.11 Patient is presents for er [...] behalf of: CHRISTIANA Mills documented in this encounterSaint Luke's East HospitalCqxhrvwmow30-52-3210 History of Present illness Narrative* Damaris Agosto [...] oz F CS-LTranv JACKSON Complications: Breech presentation ([facility]) 1 AB Obstetric Comments Last pap smear date 2 years ago Current Medications: has a current medication list which includes the following prescription(s): labetalol, lamotrigine,and mv-min-fe fum-fa-dha. Medical History: Active Ambulatory Problems Diagnosis Date Noted Hypertension 01/14/2023 Seizure ([facility]) 07/09/2021 Breech presentation, no version ([facility]) 07/29/2023 Resolved Ambulatory Problems Diagnosis Date [...] dipstick manually resulted , unspecified gestational age ([facility]) - Type and screen; Future - ABO/Rh; Future - CBC and differential - Hemoglobin A1c - RPR - Rubella antibody, IgG - Hepatitis B surface antigen - Hepatitis C antibody - HIV-1 and HIV-2 antibodies - Rapid drug screen, urine; Future Encounter for supervision of normal first in first trimester ([facility]) - Rapid drug screen, urine; Future [...] or undercooked meat, and stay away from [facility]. Patient has also been advised to [...] by: Damaris Agosto MA documented in this encounterSaint Luke's East HospitalGqbtikgiyo35-80-2655 Evaluation + Plan note* Assessment & Plan [...] Primary Care - PCP - Established; Future [facility] Work Phone: 1(248) 395-636302-25-2025 Evaluation + Plan note* Assessment & Plan Note - Koffi Uriarte MD - 09/12/2024 12:40 PM ESTAssociated Problem(s): Seizure (Multi) Good control. Follow up with neuro. Continue meds [facility] Work Phone: 1(627) 613-553802-25-2025 Evaluation + Plan note* Assessment & Plan Note - Koffi Uriarte MD - 09/12/2024 12:40 PM ESTAssociated Problem(s): Vitamin B12 deficiency [facility] Work Phone: 1(449) 846-691602-25-2025 Evaluation + Plan note* Assessment & Plan Note - Koffi Uriarte MD - 09/12/2024 12:40 PM ESTAssociated Problem(s): Fatigue We talked about healthy habits and sleep hygiene Orders: CBC; Future TSH with reflex to Free T4 if abnormal; Future Vitamin B12; Future [facility] Work Phone: 1(114) 699-622502-25-2025 History of Present illness Narrative* Koffi Uriarte MD - 09/12/2024 12:40 PM EST Subjective Princess Guerrero is a 28 y.o. female who presents for Follow-up (Follow from sulfur burner appt for elevated BP). Here for a [...] mg daily or vitamins. documented in this [facility] Work Phone: 1(584) 850-111002-25-2025 Instructions* Patient Instructions* Koffi Uriarte MD - 09/12/2024 12:40 PM EST Please start back on folic acid 1 mg daily or vitamins. documented in this [facility] Work Phone: 1(674) 991-138302-25-2025 Miscellaneous Notes* Assessment & Plan Note - [...] * Assessment & Plan Note - Koffi rUiarte MD - 09/12/2024 12:40 PM EST Associated Problem(s): Fatigue We talked about healthy habits and sleep hygiene Orders: CBC; Future TSH with reflex to Free T4 if abnormal; Future Vitamin B12; Future documented in this [facility] Work Phone: 1(988) 523-189010-16-2024 History of Present illness Narrative* Nedra Calderon MD - 05/03/2024 9:30 AM EDT Images from the original note were not included. [facility] Referring: No ref. provider found PCP: [...] further seizures. She is now working for [employer] as the health department wanted to transition her to the care home system. Patient Active Problem List Diagnosis Anxiety [...] in upper and lower extremities. Coordination Right: Damqki-rb-kzfv normal.Left: Tqtwaz-lo-gxsu normal. Physical Exam Eyes: Extraocular Movements: Extraocular [...] file for this visit. 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 Patient Active Problem List Diagnosis Abnormal weight [...] 5/5 throughout all four extremities. Coordination Right: Pfvsxf-mo-dgdb normal.Left: Mqmuci-de-jgow normal. Physical Exam Eyes: Extraocular Movements: Extraocular [...] Follow-up in 1 year documented in this [facility] Work Phone: 1(556) 686-226305-10-2023 NoteEXAMINATION: US PELVIS TRANSVAG HISTORY: Reproductive care [...] authenticated by: HAYLIE HOUSER Date: 2022-11-25 17:20The [facility]-FairhillDfhyskiy36-87-0209 NoteHNO ID: [id number] Author: Brendan Blankenship PA-C Service: ? 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 I, Brendan Blankenship, have reviewed this information as documented for accuracy and performed all elements of history taking, and edited the record as necessary. ROS: SEE HPI PE: GENERAL: well-appearing, in no acute distress LUNGS: Normal inspiratory effort SILVERWARE WASHER: Normal external genitalia, no vaginal bleeding, small [...] Medical Decision Making Level: [facility] - [facility] Miscellaneous Notes* Telephone Encounter - Mary Onofre [...] and move appt sooner. documented in this encounterMer[facility]09-01-2022 Miscellaneous Notes* Telephone Encounter - Mary Onofre RN - 03/19/2022 8:50 AM EDT LMP 02/11, +hpt. Assisted w initial OBV. Advised to take vitamin w folic acid. First trimester precautions provided. handbook sent in . documented in this encounterMercy Health Willard Hospital07-19-2022 Miscellaneous Notes* Telephone Encounter - Brendan [...] this medication MICHELLE: No documented in this encounterMercy Health Willard Hospital02-22-2022 NoteHNO ID: [id number] Author: Brendan Blankenship PA-C Service: ? 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 Portions of this record were documented by the Precision Devices Inspector/Tester. I, Brendan Blankenship, have reviewed this information as documented for accuracy and performed all elements of history taking, and edited the record as necessary. 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 [...] Medical Decision Making Level: 3 - [facility]12-17-2021 Note HNO ID: [id number] Author: 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 APRN.CLASS B DRIVER Service: ? Author Type: Nurse Practitioner Type: [...] Ectopic0 Multiple0 Live Births0 Comment: Menarche 10 Field Appraiser History LMP: 06/07/2021 (Exact Date), Having periods Age at Menarche: Age at First : Age at Menopause: Field Appraiser History Comments: Sexual Activity: Yes; Male; same [...] external genitalia normal, normal Bartholin's glands, urethra, [place]'s glands, no vulvar lesions, no cervical lesions, [...] type of detergents for washing undergarments, wiping ylkmu-xe-fdmm, sleep in loose shorts without underwear, shower immediately after intercourse/exercise, make sure perineum is gently blotted dry before dressing. Avoid scratching, scented pads/tampons/toilet papers, cranberry juice, bubble baths, and intercourse until symptoms are relieved. NO douching. If you shave, use a new razor at least twice monthly. 5) Follow up one year or sooner as needed 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 APRN.[facility]01-22-2018 History of Past illness Narrative* ProblemNoted DateResolved DateNO SHOW documented as of this encounter (statuses as of 02/03/2022) [facility]01-[facility] History of Past illness Narrative* ProblemNoted Date Resolved DateNO SHOWdocumented as of this encounter (statuses as of 03/19/2022) [facility]01-22-[facility] History of Past illness Narrative* ProblemNoted Date Resolved DateNO SHOWdocumented as of this encounter (statuses as of 03/24/2022) [facility] HospitalEvaluation + Plan note No data available for this section [facility]* Diagnosis Acute vaginitis- Primary Vaginitis and vulvovaginitis, unspecified documented in this encounter [facility]* Diagnosis Bleeding in early - Primary Unspecified hemorrhage in early , unspecified as to episode of care documented in this encounter [facility]* Diagnosis Seizure (CMS/HCC)- Primary Other convulsions documented in this encounter [facility] Work Phone: Evaluation noteNo assessment information available [facility] Work Phone: Evaluation note* Diagnosis Seizure (Multi)- Primary Other convulsions documented in this encounter [facility] Work Phone: Evaluation note* Diagnosis Benign essential hypertension- Primary Essential hypertension, benign Seizure (Multi) Other convulsions Vitamin B12 deficiency Other B-complex deficiencies Fatigue, unspecified type Well adult health check Unspecified general medical examination Vitamin D deficiency documented in this encounter [facility] Work Phone: Evaluation note* Diagnosis Missed menses Missed menses , unspecified gestational age (HHS-HCC) Encounter for supervision of normal first in first trimester ([facility]) Nausea and vomiting in ([facility]-HCC) Unspecified vomiting of , unspecified as to episode of care Seizure (HCC) Other convulsions Chronic hypertension documented in this encounter [facility] HealthcareEvaluation note* Diagnosis Nausea and [...] exposure Screening, , for anatomic survey ([facility]) Encounter for anatomic survey documented [facility] Diagnosis 20 weeks gestation of ([facility]-HCC) Second trimester (HHS-HCC) state, incidental documented in this encounter [facility]* Diagnosis Second trimester (HHS-HCC) state, incidental 24 weeks gestation of ([facility]) Hypertension, unspecified type Seizure (HCC) Other convulsions [...] up with her boyfriend. * Working in [email or web address] at the [employer]. * BP is much improved on lisinopril. * Saw gyne for discharge. * was told she had BV and chlamydia. * took antibiotics, got better for a few weeks and now she is having discharge again and odor. no pelvic pain. [employer] Work Phone: History of Present illness Narrative* The patient states she has been doing well with her blood pressure control since the last visit. She has no comorbid illnesses. She has no significant interval events. * Symptoms: The patient is currently asymptomatic. * Less anxiety lately. Broke up with her boyfriend. * Working in [email or web address] at the [employer]. * BP is much improved on lisinopril. * Saw gyne for discharge. * was told she had BV and chlamydia. * took antibiotics, got better for a few weeks and now she is having discharge again and odor. no pelvic pain. [employer] Work Phone: Hospital Discharge instructions No data available for this section [facility] No data available for this section [facility] Summary Purpose Family History Mother Name Dates [...] W WO CONTRAST Spike Garcia MD [address] [place] [address] Assessments Diagnosis Nonintractable generalized idiopathic epilepsy without status epilepticus (HCC) Diagnosis Seizure (HCC) Other convulsions Discharge Instructions * Attachments The following attachments cannot be sent through Care Everywhere. * Seizure ([place]) documented in this encounter Chief Complaint and Reason for Visit Chief Complaint Nausea, diarrhea Additional Source Comments INFORMATION SOURCE (unrecogn ized section and content) DATE CREATED AUTHOR 01/11/2018 [facility] DATE CREATED AUTHOR AUTHOR'S ORGANIZ ATION 04/19/2020 [facility] DATE CREATED AUTHOR AUTHOR'S ORGANIZ ATION 05/11/2020 [facility] DATE CREATED AUTHOR AUTHOR'S ORGANIZ ATION 12/29/2020 [facility] DATE CREATED AUTHOR AUTHOR'S ORGANIZ ATION 04/20/2022 [facility] DATE CREATED AUTHOR AUTHOR'S ORGANIZ ATION 08/11/2022 [facility] DATE CREATED AUTHOR AUTHOR'S ORGANIZ ATION 11/29/2022 [facility] DATE CREATED AUTHOR AUTHOR'S ORGANIZ ATION 12/27/2022 [facility] DATE CREATED AUTHOR AUTHOR'S ORGANIZ ATION 09/07/2023 [facility] DATE CREATED AUTHOR AUTHOR'S ORGANIZ ATION 12/16/2023 [facility] DATE CREATED AUTHOR AUTHOR'S ORGANIZ ATION 04/01/2024 [facility] DATE CREATED AUTHOR AUTHOR'S ORGANIZ ATION 04/02/2024 [facility] DATE CREATED AUTHOR AUTHOR'S ORGANIZ ATION 07/14/2024 [facility] DATE CREATED AUTHOR AUTHOR'S ORGANIZ ATION 09/15/2024 [facility] DATE CREATED AUTHOR AUTHOR'S ORGANIZ ATION 04/22/2025 [facility] DATE CREATED AUTHOR AUTHOR'S ORGANIZ ATION 05/30/2025 [facility] EPIC Reason for Visit (unrecogniz ed section and content) StatusReasonSpecialtyDiagnoses / ProceduresReferred By ContactReferred To ContactClosedEEG Diagnoses Generalized idiopathic epilepsy and epileptic syndromes, not intractable, without status epilepticus Procedures HC EEG 16+ CHANNEL TELEMTERY 24HR Spike Garcia MD [address] [place] [address] [address] [place] [address] StatusReasonSpecialtyDiagnoses / ProceduresReferred By ContactReferred To ContactClosedRadiology Diagnoses Generalized idiopathic epilepsy and epileptic syndromes, not intractable, without status epilepticus Procedures HC MRI-BRAIN WO & W CONTRAST Spike Garcia MD [address] [facility] [address] [place] [address] [address] Mri [address] [place] [address] ReasonCommentsSeizuresSeizure like activityReasonCommentsAppointmentReason CommentsBleeding With PregnancyReasonCommentsSeizuresMedication udatesReason CommentsSeizuresReasonCommentsFollow-upFollow from sulfur burner appt for elevated BP ReasonCommentsAmenorrheaReasonCommentsRoutine VisitReasonComments Routine VisitWell Women VisitSTI Screening Source Comments (unrecognize d section and content) In the event this informatio n is protected by the Federal Confidentiality of Alcohol and Drug Abuse Patient Records regulations: The Federal rules restrict any use of the information to criminally investigate or prosecute any alcohol or drug abuse patient.[facility] HospitalIn the event this information is protected by the Federal Confidentiality of Alcohol and Drug Abuse Patient Records regulations: The Federal rules restrict any use of the information to criminally investigate or prosecute any alcohol or drug abuse patient.[facility] HospitalIn the event this information is protected by the Federal Confidentiality of Alcohol and Drug Abuse Patient Records regulations: The Federal rules restrict any use of the information to criminally investigate or prosecute any alcohol or drug abuse patient.[facility] Care Teams (unrecognized sec tion and content) Team MemberRelationshipSpecialtyStart DateEnd Date Koffi Uriarte MD PCP - GeneralFamily Practice08/17/16Team MemberRelationshipSpecialtyStart DateEnd Date Koffi Uriarte MD PCP - GeneralFamily Practice08/17/16Team MemberRelationshipSpecialtyStart [place] [address] [place] [address] PCP - General08/14/20 [place] [address] [place] [address] PCP - MMO [facility]CO PCP02/16/23 Team Status: Active Member Role Status Dates Norma Houser APRN Primary Care Provider Active Team Status: Inactive Member Role Status Dates Yusra Whitehead APRN Attending Provider Active Start: November 09, 2023 End: November 09, 2023RAVIN [facility] Care ProviderActiveStart: November 09, 2023 End: November 09, 2023Team MemberRelationshipSpecialtyStart [place] [address] [place] [address] PCP - General08/14/20Team MemberRelationshipSpecialtyStart [place] [address] [place] [address] PCP - General08/14/20Team MemberRelationshipSpecialtyStart [place] [address] [place] [address] PCP - GeneralFamily Medicine01/14/23Team MemberRelationshipSpecialtyStart [place] [address] [place] [address] [facility] - [facility]01/14/23Team MemberRelationshipSpecialtyStart [place] [address] [place] [address] PCP - GeneralFamily Medicine01/14/23Team MemberRelationshipSpecialtyStart [place] [address] [place] [address] PCP - GeneralFamily Medicine01/14/23Team MemberRelationshipSpecialtyStart [place] [address] [place] [address] PCP - GeneralFamily Medicine01/14/23Team MemberRelationshipSpecialtyStart [place] [address] [address] PCP - GeneralFamily Medicine01/14/23Team MemberRelationshipSpecialtyStart [place] [address] [place] [address] PCP - GeneralFamily Medicine01/14/23Team MemberRelationshipSpecialtyStart [place] [address] [place] [address] PCP - GeneralFamily Medicine01/14/23Team MemberRelationshipSpecialtyStart [place] [address] [place] [address] PCP - GeneralFamily Medicine01/14/23Team MemberRelationshipSpecialtyStart [place] [address] [place] [address] PCP - GeneralFamily Medicine01/14/23Te MemberRelationshipSpecialtyStart [place] [address] [place] [address] PCP - [facility]01/14/23Te MemberRelationshipSpecialtyStart [place] [address] [place] [address] PCP - [facility]01/14/23Te MemberRelationshipSpecialtyStart [place] [address] [place] [address] PCP - [facility]01/14/23 Goals (unrecognized section and content) [...] BE BASED ON THE PRIMARY CLINICAL RECORDS. [facility] Constant Contact [facility]. provides no warranty or guarantee of the accuracy or completeness of information in this document.
--- OUTSIDE RECORDS SUMMARY | 2025-07-14 10:50 | XMS_ITS | Encounter Summary ---
Author Organization [facility] Address [address] [place] [address] Care Team Providers Care Timber Sizer Name Role Phone Suzanne Uriarte MD Primary Care Provider +1- [phone] Encounter Details DateTypeDepartmentCare Team (Latest Contact Info)Hxjmdiqnrhj33/23/2025bstract [facility] [address] [place] [address] Willis Chen DO [address] [place], [place] [id number] Social History Tobacco UseTypesPacks/DayYears UsedDateSmoking Tobacco: Never Assessed Estimated Date of AxhqhhipPirlvvcfKjq36/02/2026ased on last menstrual period of 11/13/2024Sex and Gender InformationValueDate RecordedSex Assigned at BirthFemale 12/21/2022 8:22 PM EDTLegal YmtSnwdnx10/15/2023 11:40 PM EDTGender Identity Xldkxd2612/21/2022 8:22 PM EDTSexual EmdbbyubcwrZzogablm90/05/2023 8:22 PM EDT documented as of this encounter Plan of Treatment DateTypeDepartmentCare Team (Latest Contact Info)Pzbrfyoavuw11/05/2026 3:00 PM ESTAncillary Procedure [facility] [address] [place] [address] 07/23/2025 3:30 PM ESTRoutine [facility] [address] [place] [address] Willis Chen, DO [address] [facility] [place] [address] documented as of this encounter Goals GoalPatient Goal TypeAssociated ProblemsRecent ProgressPatient-Stated?Author Reminders Care PlanOB RemindersNoOpen Scheduling, Backgrounddocumented as of this encounter Visit Diagnoses Not on filedocumented in this encounter Additional Health Concerns Active ProblemsNoted DateDiagnosed DateOB Xlxehdcpx64/29/2023 documented as of this encounter Care Teams Team MemberRelationshipSpecialtyStart [place] [address] [place] [address] PCP - GeneralFamily Medicine01/14/23documented as of this encounter
--- OUTSIDE RECORDS SUMMARY | 2025-07-14 10:50 | XMS_ITS | Encounter Summary ---
Author Organization [facility] Address [address] [facility] [place] [address] Care Team Providers Care Manager Creative Name Role Phone Suzanne Uriarte MD Primary Care Provider +1- [phone] Encounter Details DateTypeDepartmentCare Team (Latest Contact Info)Srkoxovbwkt53/22/2025amboo flowsheet [facility] [address] [place] [address] Roula Grullon PA [address] [place], [place] [id number] Social History Tobacco UseTypesPacks/DayYears UsedDateSmoking Tobacco: Never Assessed Estimated Date of BfwcnsweUxainbxcBeh10/02/2026ased on last menstrual period of 11/13/2024Sex and Gender InformationValueDate RecordedSex Assigned at BirthFemale 12/21/2022 8:22 PM EDTLegal AkjOdstls03/15/2023 11:40 PM EDTGender Identity Bucotg7812/21/2022 8:22 PM EDTSexual CoynbcybbghRpdabnid38/05/2023 8:22 PM EDT documented as of this encounter Plan of Treatment DateTypeDepartmentCare Team (Latest Contact Info)Rzleqtbnomw84/05/2026 3:00 PM ESTAncillary Procedure [facility] [address] [place] [address] 07/23/2025 3:30 PM ESTRoutine [facility] [address] [place] [address] Willis Chen, DO [address] [place] [address] documented as of this encounter Goals GoalPatient Goal TypeAssociated ProblemsRecent ProgressPatient-Stated?Author Reminders Care PlanOB RemindersNoOpen Scheduling, Backgrounddocumented as of this encounter Visit Diagnoses Not on filedocumented in this encounter Additional Health Concerns Active ProblemsNoted DateDiagnosed DateOB Ywlyskddw37/29/2023 documented as of this encounter Care Teams Team MemberRelationshipSpecialtyStart [place] [address] [place] [address] PCP - GeneralFamily Medicine01/14/23documented as of this encounter
--- OUTSIDE RECORDS SUMMARY | 2025-07-14 10:50 | XMS_ITS | Clinical Summary ---
Author Organization [facility] Healthcare Address [address] [place] [address] Care Team Providers Care Impregnation Operator Name Role Phone Koffi Uriarte MD Primary Care Provider [phone] Allergies No known active allergies Medications MedicationSigDispense [...] the morning and 200 mg before bedtime.5Active iron polysaccharides (ProFe) 391.3 (180 Fe) MG capsule Indications:Hemoglobin lowTake 1 capsule (391.3 mg) by mouth Daily 30 capsule 615108/29/2024Expired lamoTRIgine (LaMICtal) 150 MG tablet 150 mg5108/28/2024Discontinued Active Problems ProblemNoted DateDiagnosed DateBreech presentation, no version ([facility]) 07/29/20235133Koumgkmqqyuq06/29/1068Bvgnzba34/22/2021Estimated Date of FjzwswsuTsbxfhzhZwv01/02/2026ased on last menstrual period of 11/13/2024 Encounters DateTypeDepartmentCare TlevFxscfieljtt19/24/2025Clinisync Result Encounter [facility] External Department Unsolicited Lisa Chen, DO 07/10/2025bstract [facility] [address] [place] [address] Lisa Chen, DO 07/09/2025 4:00 PM ESTRoutine [facility] [address] [place] [address] Roula Grullon PA 34 weeks gestation of ([facility]); Third trimester ([facility]); Seizure (HCC); Hypertension, unspecified type; Antepartum anemia ([facility]); SGA (small for gestational age) ([facility])07/09/2025amboo flowsheet [facility] [address] [place] [address] Roula Grullon PA 07/05/2025linisync Result Encounter NOMS External Department Unsolicited Lisa Chen, DO 07/02/20258420Obkdjm53/11/2025bstract [facility] [address] [place] [address] Lisa Chen, DO 06/27/2025 3:00 PM ESTRoutine [facility] [address] [place] [phone] Lisa Chen, DO Third trimester ([facility]); 32 weeks gestation of ([facility]); Seizure (HCC); Hypertension, unspecified type; Antepartum anemia ([facility]); SGA (small for gestational age) ([facility])06/27/2025bstract [facility] [place] [facility] [address] [place] [address] Lisa Chen, DO 06/27/2025Telephone [facility] [place] [facility] [address] [place] [address] Vee [address] LPN 06/27/2025amboo flowsheet [facility] [address] [place] [address] Lisa Chen, DO 5Abstract [facility] [address] [place] [address] [place] [address] Lisa Chen, DO 06/25/2025bstract [facility] [place] [facility] [address] [place] [address] [place] [address] Lisa Chen, DO 06/25/2025bstract [facility] [address] [place] [address] [place] [address] Lisa Chen, DO 06/25/2025Telephone [facility] [place] [facility] [address] [place] [address] [place] [address] Lisa Chen, DO 06/21/2025bstract [facility] [address] [place] [address] [place] [address] Lisa Chen, DO 5Abstract [facility] [place] [facility] [address] [place] [address] [place] [address] Lisa Chen, DO 06/20/20250115Hydrdv95/01/2025Abstract [facility] [address] [place] [address] [place] [address] Lisa Chen, DO 5Clinisync Result Encounter NOMS External Department Unsolicited Roula Grullon PA 06/13/2025 3:00 PM ESTRoutine [facility] [address] [place] [address] Roula Grullon PA Third trimester ([facility]); 30 weeks gestation of ([facility]); Antepartum anemia ([facility])06/13/2025 2:30 PM ESTAncillary Procedure [facility] [address] [place] [address] Hypertension, unspecified type; Seizure (HCC)06/13/2025bstract [facility] [address] [place] [address] Lisa Chen, DO 06/13/2025bstract [facility] [place] [facility] [address] [place] [address] Lisa Chen, DO 06/13/2025bstract [facility] [place] [facility] [address] [place] [address] Lisa Chen, DO 06/12/2025linisync Result Encounter NOMS External Department Unsolicited Lisa Chen, DO 06/12/20254866Hkbtxe77/25/2025Telephone [facility] [address] [place] [address] Lisa Chen, DO 05/29/2025 11:40 AM ESTRoutine [facility] [address] [place] [address] Lisa Chen, DO 28 weeks gestation of ([facility]); Third trimester ([facility]); Hypertension, unspecified type; Seizure (HCC); Hemoglobin low05/29/2025amboo flowsheet [facility] [address] [place] [address] Lisa Chen, DO 05/22/20250217Pljfqk56/01/2025linisync Result Encounter NOMS External Department Unsolicited Roula Grullon PA 04/30/2025 9:50 AM [place]TRout[place] [address] Roula Grullon PA Second trimester ([facility]); 24 weeks gestation of ([facility]); Hypertension, unspecified type; Seizure ([facility]); Diabetes mellitus quapevkpt30/13/2025amboo [place] [address] Roula Grullon PA 04/29/20258362Qcpbxp58/01/2025Refill [facility] [address] [place], [place] [address] [address] Lisa Chen, Secondary hypertensionfrom Last 3 Months Social History Tobacco UseTypesPacks/DayYears UsedDateSmoking Tobacco: Never Assessed Estimated Date of AdhtjhvlGyyoczvlDxl16/02/2026ased on last menstrual period of 11/13/2024Sex and Gender InformationValueDate RecordedSex Assigned at BirthFemale 12/21/2022 8:22 PM EDTLegal CazZkshfa61/15/2023 11:40 PM EDTGender Identity Kmntml4312/21/2022 8:22 PM EDTSexual WhnwyrwpbexUyrlsnqx50/05/2023 8:22 PM EDT Last Filed Vital Signs Vital SignReadingTime TakenCommentsBlood Vvdbqspv718/6012 4:05 PM EST Pulse--Temperature--Respiratory Rate--Oxygen Saturation--Inhaled Oxygen Concentration--Ameizx79.2 kg (201 lb)07/09/2025 4:05 PM FILTiovsh376.3 cm (5' 9 )11/16/2022 12:00 PM EDTBody Mass Index29.68011/16/2022 12:00 PM EDT Plan of Treatment DateTypeDepartmentCare Team (Latest Contact Info)Bnzrspqepwi93/05/2026 3:00 PM ESTAncillary Procedure [facility] [place] [place] [address] 07/23/2025 3:30 PM ESTRoutine [facility] [address] [place] [address] Lisa Chen DO [address] [place] [address] Health MaintenanceDue DateLast DoneCommentsHPV/Dsmick9910/02/2023Influenza Vaccine (#1)51, 04/21/2022, 04/18/2021, Additional history exists Cervical Cancer Amyvfcrsc67/20/2028Pap Smear8003/07/2025, 03/09/2023 Pneumococcal Vaccine: Pediatrics (0 to 5 Years) and At-Risk Patients (6 to 64 Years)Aged OutNo longer eligible based on patient's age to complete this topic Goals GoalPatient Goal TypeAssociated ProblemsRecent ProgressPatient-Stated?Author Reminders Care PlanOB RemindersNoOpen Scheduling, Background Procedures Procedure NamePriorityDate/TimeAssociated DiagnosisCommentsUS OB BPP W NON-NVNDAV6907/11/2025 9:06 AM EST URINARY TRACT INFECTION (HTRX)Vwjvzrv3607/09/2025 4:39 PM EST POCT URINALYSIS HKFKQGPUHhnatal21/22/2025 4:14 PM EST 34 weeks gestation of ([facility]) Third trimester ([facility]) US OB BPP W NON-OQVXVC5807/05/2025 10:00 AM EST POCT URINALYSIS UNTKSYLZSzoqxtn26/10/2025 3:20 PM EST Third trimester ([facility]) VIXMKADGJPEHuaphcx35/28/2025 2:57 PM EST CCF ADIJCHZQJbzqien49/28/2025 2:57 PM EST POCT URINALYSIS PXNUCNRUTkmfbph71/26/2025 3:11 PM EST Third trimester ([facility]) US OB FOLLOW UP TRANSABDOMINAL HNFZNLGIHumbqna86/26/2025 3:02 PM EST Hypertension, unspecified type Seizure (HCC) TBH UA (CLEAN/CATCH) ORACLE SOFTWARE ENGINEER/MICRO IF IND.Ynqoefv5006/12/2025 4:40 PM EST POCT URINALYSIS WJVODJIRJkudffa40/11/2025 11:46 AM EST 28 weeks gestation of ([facility]) Third trimester ([facility]) GLUCOSE 1 FICISrunakg77/01/2025 12:28 PM EDT ALL CBC WITH AUTO ICHBFiyyzzw51/01/2025 12:28 PM EDT POCT URINALYSIS WYGXGULGErcqwnr95/13/2025 10:14 AM EDT Second trimester ([facility]) PAP FXVDXHliooyf04/20/2025 12:00 AM EDTfrom Last 3 Months or Most Recently Relevant to Health Maintenance Results * OB BPP W NON-STRESS (07/11/2025 9:06 AM EST) Only the most recent of2 resultswithin the time period is included. Anatomical RegionLateralityModalityOtherSpecimen (Source)Anatomical Location / LateralityCollection Method / VolumeCollection TimeReceived Time07/11/2025 9:06 AM EST Narrative 07/11/2025 9:08 AM EST [facility] [place] ?[address] ? [place] [address] ? Ultrasound Report ? Signed ? Patient: PRINCESS HUNTER ?MR#: [id number] ?? : 1995 ?Acct:[id number] ?? Age/Sex: 29 / F ?ADM Date: 07/10/ ?? Loc: US ? Attending Dr: Lisa Chen D.O. ? Ordering Physician: Lisa Chen D.O. ?? Date of Service: 07/10/25 ?? Procedure(s): US OB BPP w non-stress ?? Accession Number(s): [id number] ? cc: Lisa Chen D.O.; KOFFI URIARTE M.D. ? [facility] [place] ? [address] ? [place] [address] ? Patient Name: ?? PRINCESS HUNTER ? MRN: [facility]:[id number] ? date: 1995 ?Sex: F ?? Assigned Patient Location: [facility] ?? Current Patient Location: ? Accession/Order Number: [id number] ?? Exam Date: 07/10/2025 ??17:18 ?Report Date: 07/11/2025 ??09:06 ? At the request of: ?? LISA ??APRIL ??DO ? Procedure: ??US OB BPP w non-stress ? BIOPHYSICAL PROFILE: ? CLINICAL INFORMATION: Hypertension, unspecified TYPE I1O ? COMPARISON: 07/04/2025 ? There is a single live intrauterine gestation in cephalic presentation. ??The ?? reported gestational age is 34 weeks 1 day. ??The heart rate measures 123 ?? beats per minute. ? FINDINGS: ? TONE: [...] 2 cm ? [Y] ? 2/2 ?LAURA: 13.9 cm ? Total score: ? 8/8 ? US/US OB BPP w non-stress ?? IMPRESSION: ? NORMAL BIOPHYSICAL PROFILE ? Impression dictated by: Cyndi Pisano M.D. ??07/11/2025 9:06 AM ? Dictation Location: RADIO-PC-30 ? Electronically authenticated by: [id number] ??Y ?? Date: 07/11/2025 ??09:06 ? Dictated By: ?Cyndi Pisano M.D. ? Signed By: ?07/11/25 0908 ? DD/ 0906 ? TD/TT: ? Network Operations Center Technician: Procedure Note Radiology, Radiologist, MD - 07/11/2025 [place] [address] Ultrasound Report Signed Patient: PRINCESS HUNTER [facility]#: [id number] : 1995Acct:[id number] Age/Sex: 29 / FADM Date: 07/10/25 Loc: US Attending Dr: Lisa Chen D.O. Ordering Physician: iLsa Chen D.O. Date of Service: 07/10/25 Procedure(s): US OB BPP w non-stress Accession Number(s): [id number] cc: Lisa Chen D.O.; KOFFI URIARTE M.D. [place] [id number] Patient Name: PRINCESS HUNTER MRN: [facility]:[id number] date: 1995 Sex: F Assigned Patient Location: [facility] Current Patient Location: Accession/Order Number: [id number] Exam Date: 07/10/2025 17:18 Report Date: 07/11/2025 09:06 At the request of: LISA CHEN DO Procedure: US OB BPP w non-stress BIOPHYSICAL PROFILE: CLINICAL INFORMATION: Hypertension, unspecified TYPE I1O COMPARISON: 07/04/2025 There is a single live intrauterine gestation in cephalic presentation.The reported gestational age is 34 weeks 1 day. The heart rate xshwpbog414 beats per minute. FINDINGS: TONE: 1 or [...] greater than 2 cm [Y] 2/2 LAURA: 13.9 cm Total score: 8/8 US/US OB BPP w non-stress IMPRESSION: NORMAL BIOPHYSICAL PROFILE Impression dictated by: Cyndi Pisano M.D. 07/11/2025 9:06 AM Dictation Location: [place] [address] Electronically authenticated by: [id number] Y Date: 509:06 Dictated By: Cyndi Pisano M.D. Signed By:07/11/25907 DD/ 5 TD/TT: Network Operations Center Technician: Authorizing ProviderResult TypeResult StatusCorey April DOCLINISYNC IMAGINGFinal Result * URINARY TRACT INFECTION (HTRX) (07/09/2025 4:39 PM EST)ComponentValueRef Range Test MethodAnalysis TimePerformed AtPathologist SignatureACINETOBACTER VQNVHJWF773.961 - 24.689 ppm07/11/2025 6:18 AM ESTHealth[facility]Rx [facility] ACINETOBACTER BAUMANIINot Svlsprux19.961 - 24.689 ppm07/11/2025 6:18 AM EST [facility] LabPortCITROBACTER JRKGACPD600.000 - 32.015 ppm07/11/2025 6:18 AM ESTHealthTrackRx at LabPortCITROBACTER FREUNDIINot Thphuzar64.000 - 32.015 ppm07/11/2025 6:18 AM ESTHealthTrackRx at LabPortENTEROBACTER AEROGENES, YLPJRRN520.000 - 32.290 ppm07/11/2025 6:18 AM ESTHealthTrackRx at LabPortENTEROBACTER AEROGENES, CLOACAENot Bgusxtsq21.000 - 32.290 ppm 07/11/2025 6:18 AM ESTHealthTrackRx at LabPortENTEROCOCCUS FAECALIS, FAECIUM0 26.000 - 33.043 ppm07/11/2025 6:18 AM ESTHealthTrackRx at LabPortENTEROCOCCUS FAECALIS, FAECIUMNot Qdoycoza84.000 - 33.043 ppm07/11/2025 6:18 AM EST [facility] at LabPortESCHERICHIA ZUXB248.000 - 28.500 ppm07/11/2025 6:18 AM ESTHealthTrackRx at LabPortESCHERICHIA COLINot Vfdczskd86.000 - 28.500 ppm 07/11/2025 6:18 AM ESTHealthTrackRx at LabPortKLEBSIELLA PNEUMONIAE, OXYTOCA0 23.000 - 31.865 ppm07/11/2025 6:18 AM ESTHealthTrackRx at LabPortKLEBSIELLA PNEUMONIAE, OXYTOCANot Sfyoifgx85.000 - 31.865 ppm07/11/2025 6:18 AM EST [facility] at LabPortMORGANELLA VHMGMTJU581.961 - 24.689 ppm07/11/2025 6:18 AM ESTHealthTrackRx at LabPortMORGANELLA MORGANIINot Kdwhrvtt98.961 - 24.689 ppm07/11/2025 6:18 AM ESTHealthTrackRx at LabPortPROTEUS MIRABILIS, VULGARIS0 23.000 - 28.500 ppm12/ 6:18 AM ESTHealthTrackRx at LabPortPROTEUS MIRABILIS, VULGARISNot Gwkgmjpm00.000 - 28.500 ppm07/11/2025 6:18 AM EST [facility] at LabPortPSEUDOMONAS TUEQPAUFXE276.000 - 31.801 ppm12/ 6:18 AM ESTHealthTrackRx at LabPortPSEUDOMONAS AERUGINOSANot Lugtvovv90.000 - 31.801 ppm07/11/2025 6:18 AM ESTHealthTrackRx at LabPortSTAPHYLOCOCCUS AUREUS0 26.000 - 31.595 ppm07/11/2025 6:18 AM ESTHealth[facility]Rx [facility] STAPHYLOCOCCUS AUREUSNot Lkdpjlqt47.000 - 31.595 ppm07/11/2025 6:18 AM EST [facility] at LabPortSTREPTOCOCCUS AGALACTIAE (GROUP B STREP)026.000 - 32.435 ppm07/11/2025 6:18 AM ESTHealthTrackRx at LabPortSTREPTOCOCCUS AGALACTIAE (GROUP B STREP)Not Xsnbsvev58.000 - 32.435 ppm125 6:18 AM ESTHealthTrackRx at LabPortCANDIDA ALBICANS, PARAPSILOSIS, KNXQJDYCYN244.000 - 30.347 ppm07/11/2025 6:18 AM ESTHealthTrackRx at LabPortCANDIDA ALBICANS, PARAPSILOSIS, TROPICALISNot Pxroqysh99.000 - 30.347 ppm12/ 6:18 AM EST [facility]PortCANDIDA MDMARHTM912.000 - 31.618 ppm07/11/2025 6:18 AM ESTHealthTrackRx at LabPortCANDIDA GLABRATANot Ftjfaobv49.000 - 31.618 ppm 07/11/2025 6:18 AM ESTHealthTrackRx at LabPortCANDIDA ACNDLS003.000 - 30.873 ppm07/11/2025 6:18 AM ESTHealthTrackRx at LabPortCANDIDA HUSSAINUSEINot Detected 23.000 - 30.873 ppm07/11/2025 6:18 AM ESTHealthTrackRx at LabPortSERRATIA EEEIFACIKN975.000 - 31.581 ppm07/11/2025 6:18 AM ESTHealth[facility] SERRATIA MARCESCENSNot Qjyemkui45.000 - 31.581 ppm07/11/2025 6:18 AM EST [facility] at LabPortSTREPTOCOCCUS PYOGENES (GROUP A STREP)019.961 - 24.689 ppm07/11/2025 6:18 AM ESTHealthTrackRx at LabPortSTREPTOCOCCUS PYOGENES (GROUP A STREP)Not Vyyfztln88.961 - 24.689 ppm07/11/2025 6:18 AM EST [facility] LabPortSTAPHYLOCOCCUS EPIDERMIDIS, HAEMOLYTICUS, LUGDUNENSIS, SAPROPHYTICUS (YCQFX961.961 - 24.689 ppm07/11/2025 6:18 AM ESTHealthTrackRx at LabPortSTAPHYLOCOCCUS EPIDERMIDIS, HAEMOLYTICUS, LUGDUNENSIS, SAPROPHYTICUS (URINANot Eqngirpt37.961 - 24.689 ppm07/11/2025 6:18 AM ESTHealthTrackRx at LabPortSTAPHYLOCOCCUS EPIDERMIDIS, HAEMOLYTICUS, LUGDUNENSIS, SAPROPHYTICUS (EBITJ208.961 - 24.689 ppm07/11/2025 6:18 AM EST[facility] STAPHYLOCOCCUS EPIDERMIDIS, HAEMOLYTICUS, LUGDUNENSIS, SAPROPHYTICUS (URINANot Zipkafdk44.961 - 24.689 ppm07/11/2025 6:18 AM EST[facility] Specimen (Source)Anatomical Location / LateralityCollection Method / Volume Collection TimeReceived WpsnCcyvt40/22/2025 4:39 PM EST07/11/2025 1:24 AM EST Narrative Authorizing ProviderResult TypeResult StatusAmy [facility] BLOOD ORDERABLES Final ResultPerforming OrganizationAddressCity/State/ZIP CodePhone Number [facility] [address] [place] [address] * POCT urinalysis dipstick manually resulted (07/09/2025 [...] Location / LateralityCollection Method / VolumeCollection TimeReceived MbibByyeq33/22/2025 4:14 PM EST Narrative Authorizing ProviderResult TypeResult StatusAmy Mitchel [facility] TEST ENTER/EDIT ORDERABLESFinal Result * (ABNORMAL) TRANSFERRIN (06/15/2025 2:57 PM EST)ComponentValueRef RangeTest MethodAnalysis TimePerformed AtPathologist XatgwlunwBCEPWEKZVNL886(A)192 - 364 mg/dLTBHComment: Performed at: ??CB - [facility] [address] ??[id number] Ordnance Truck Installation Mechanic: Jose Fallon PhD, Phone: ??[phone] Specimen (Source)Anatomical Location / LateralityCollection Method / [...] Mitchel PACLINISYNCFinal Result Performing OrganizationAddressCity/State/ZIP CodePhone Number [facility] * US OB follow up transabdominal [...] period. TRANSCRIBED BY: ELECTRONICALLY SIGNED BY: Michael iEd MD Authorizing ProviderResult TypeResult StatusCorey April DOIMG OB US PROCEDURES Final Result * (ABNORMAL) [facility] UA (CLEAN/CATCH) ORACLE SOFTWARE ENGINEER/MICRO IF IND. (06/12/2025 4:40 PM EST) ComponentValueRef [...] DOCLINISYNCFinal Result Performing OrganizationAddressCity/State/ZIP CodePhone Number [facility] * GLUCOSE 1 HOUR (05/19/2025 12:28 PM EDT)ComponentValueRef RangeTest Method Analysis TimePerformed AtPathologist SignatureGLUCOSE 1 NULE182<130 mg/dLTBH Specimen (Source)Anatomical Location / LateralityCollection Method / Volume Collection TimeReceived Time05/19/2025 12:28 PM EDT107/19/2024 12:29 PM EDT Narrative [facility] - 05/19/2025 1:15 PM EDT Authorizing ProviderResult TypeResult StatusAmy Mitchel [facility] BLOOD [...] - 35.2 g/dLTBHTBH RDW12.311.0 - 15.0 %TBHTBH [id number] - 450 10 3/uLTBHTBH MPV8.9(L)9.5 - 13.5 [...] Mitchel PACLINISYNCFinal Result Performing OrganizationAddressCity/State/ZIP CodePhone Number [facility] * Pap Smear (03/07/2025 12:00 AM EDT)Specimen (Source)Anatomical Location / LateralityCollection Method / VolumeCollection TimeReceived TimeSwabCervical swab / Unknown Narrative Authorizing ProviderResult TypeResult StatusAmy Mitchel BOATENG CYTOLOGY ORDERABLES Final ResultPerforming OrganizationAddressCity/State/ZIP CodePhone Number EXTERNAL LAB from Last 3 Months or Most Recently Relevant to Health Maintenance Additional Health Concerns Active ProblemsNoted DateDiagnosed DateOB Iclbasuly54/29/2023 Insurance Care Teams Team MemberRelationshipSpecialtyStart [place] [address] [place] [address] PCP - GeneralFamily Medicine01/14/23
--- OUTSIDE RECORDS SUMMARY | 2025-07-14 10:51 | XMS_ITS | Clinical Summary ---
Author Organization [facility] Address [address] [place] [address] Phone Care Team Providers Care Windows Application Administrator Name Role Phone Suzanne Uriarte MD Primary [...] 1115108/28/2024Discontinued(Cost of medication) Active Problems ProblemNoted DateDiagnosed LqngWnykihz86/25/2025 Assessment & Plan (09/14/2024 1:31 PM EST): We talked about healthy habits and sleep hygiene Orders: CBC; Future TSH with reflex to Free T4 if abnormal; Future Vitamin B12; Future Klbolkx4610/02/2022enign essential cjdtyrjnfimw67/17/2023 Assessment & Plan (09/14/2024 1:31 PM EST): [...] Primary Care - PCP - Established; Future Dfhdrqy4210/02/2022 Assessment & Plan (09/14/2024 1:31 PM EST): Good control. Follow up with neuro. Continue meds Vitamin B12 zqapbtfpsu42/17/2023 Assessment & Plan (09/14/2024 1:31 PM EST): Resolved Problems ProblemNoted DateDiagnosed DateResolved DateClass 1 obesity with body mass index (BMI) of 32.0 to 32.9 in adult/4998Bleafgwbxbah10/29/2023 09/12/2024bnormal weight gainllergic /17/2023 05/03/2024acterial mvvhtpmjv93ilateral chronic otitis media hest painhronic akvhtcordwtz87/17/2023 05/03/2024hronic aeacyalfk57/onductive hearing loss, yyuonurmz19Elevated BP without diagnosis of hypertension Globus ubktedwpl19Hair loss10/02/2022 05/03/20244794Jwowchnt15Tonsil stoneVaginal goamekkjs59 Encounters DateTypeDepartmentCare QkwcDaepozykeue13/12/2025Scanned Document [facility] [address] [place] [address] Suzanne Uriarte MD 06/27/2025Orders Only [address] Chiu 2 [place] [facility] [place] [address] Nedra Deleon MD Seizure (Multi) (Primary Dx)06/27/2025Scanned Document [address] Chiu 2 [place] [facility] [place] [address] Nedra Deleon MD 06/25/2025Documentation [address] Chiu 2 [address] [address] [place] [address] Laila Jin, SEARCH ENGINE MARKETING SPECIALIST-PROCESS MANUFACTURING ENGINEER 06/25/2025Orders Only [address] Chiu 2 [address] [place] [address] Nedra Deleon MD Unspecified convulsions (Multi)06/25/2025Orders Only [address] Chiu 2 [address] [place] [address] Emili Rosado MD 06/20/2025 3:[address] Chiu 2 [facility] [address] [place] [address] Laila Jin, SEARCH ENGINE MARKETING SPECIALIST-PROCESS MANUFACTURING ENGINEER Seizure (Multi) (Primary Dx) Discharge Disposition: Home06/20/20254204Azrcve94/01/2025Orders Only [facility] [address] [place] [address] Dr Chiu 2 [facility] [address] [place] [address] Mei Soto MA Seizure (Multi)06/13/2025Telephone [facility] [address] [place] [address] Dr Chiu 2 [facility] [address] [place] [address] Mei Soto MA Medical Advice/Ihnetyfo03/27/2025Orders Only [facility] [address] [place] [address] Dr Chiu 2 [facility] [address] [place] [address] Nedra Deleon MD Unspecified convulsions (Multi)04/18/2025Telephone [facility] [address] [place] [address] Kim Fuentes MA 04/17/2025Refill [facility] [address] [place] [address] Suzanne Uriarte MD Benign essential hypertensionfrom Last 3 Months Immunizations ImmunizationAdministration DatesNext MlaBFZ9504/16/1994,02/12/1994,1993DTaP, Ycgupytecqg24/25/1999,01/07/1995Flu vaccine (IIV4), preservative free *Check age/dose*04/22/2023,04/21/2022,04/18/2021,05/06/2017Flu vaccine, quadrivalent, no egg protein, age 6 month or greater (FLUCELVAX)05/09/2019Hepatitis B vaccine, 19 yrs and under (RECOMBIVAX, ENGERIX)06/18/1994,01/08/1994,1993Hepatitis B vaccine, adult *Check Product/Dose*11/01/2023HiB PRP-OMP conjugate vaccine, pediatric (PEDVAXHIB)10/22/1994,04/16/1994,02/12/1994,1993Hib (HbOC) 03/12/1999Influenza, injectable, exgvahsofqhp76/11/2018MMR vaccine, subcutaneous (MMR II)03/12/1999,10/22/1994Meningococcal ACWY-D (Menactra) 4-valent conjugate lkgqlrv1302/25/2007OPV03/12/1999,04/16/1994,02/12/1994,1993PPD Test 11/30/2014,12/15/2013Pneumococcal polysaccharide vaccine, 23-valent, age 2 [...] 0.6 oz pure alcohol)SociallyPHQ-2AnswerDate RecordedPatient Health Questionnaire-2 Lbvas99308/21/2024UDIT-CAnswerDate RecordedQ1: How often do you have a drink containing alcohol?Never06/20/2025Q2: How many drinks containing alcohol do you have on a typical day when you are drinking?Patient does not drink06/20/2025Q3: How often do you have six or more drinks on one occasion?Never06/20/2025 CommentsNoSex and Gender InformationValueDate RecordedSex Assigned at BirthNot on fileLegal DenRgizdm26/25/2022 10:33 PM ESTGender IdentityNot on fileSexual OrientationNot on file Last Filed Vital Signs Vital SignReadingTime TakenCommentsBlood Awwnulpt299/9609/12/2024 12:28 PM EST Rudix273809/12/2024 12:28 PM PCFYofnwftiodr15.3 ??C (97.3 ??F)09/12/2024 12:28 PM ESTRespiratory Cajx626307/31/2022 10:54 AM ESTOxygen Bflbpbdhlo295%12/24/2021 11:32 AM EDTInhaled Oxygen Concentration--Ipvtcw81.1 kg (183 lb 4 oz)09/12/2024 12:28 PM AHIEktybp257.3 cm (5' 9 )09/12/2024 12:28 PM ESTBody Mass Index27.06 09/12/2024 12:28 PM EST Plan of Treatment DateTypeDepartmentCare Team (Latest Contact Info)Apdopcpfidf13/18/2026 2:00 PM EDTOffice Visit [facility] [address] [place] [address] Dr Chiu [address] [address] Laila Jni, SEARCH ENGINE MARKETING SPECIALIST-PROCESS MANUFACTURING ENGINEER [address] [place] [address] Health MaintenanceDue DateLast DoneCommentsHIV Jqeflwesm94/16/1994Hepatitis C Afecmratr22/16/2012HPV/Ahhtkh7510/01/2014HPV Vaccines (1 - 3-dose standard series) 2020Yearly Adult Qtpiwwui65/27/235569, 07/31/2022, 07/31/2022, Additional history existsCOVID-19 Vaccine ( season)2025 05/27/2023Influenza Vaccine (#1), 04/21/2022, 04/18/2021, Additional history existsCervical Cancer Hiqqxfblc20/20/2028Pap Smear03/07/2028 03/07/2025, 03/10/2023, 03/09/2023, Additional history existsLipid Panel DTaP/Tdap/Td Vaccines (9 - Td or Tdap)/, 02/16/2018, 03/02/2008, Additional history existsZoster Vaccines (1 of 2) 10/02/2043HIB BbkoaxjrSpjnivowa53/25/1999, 10/22/1994, 04/16/1994, Additional history existsIPV IonfyhcoNwbvzohpk81/25/1999, 10/22/1994, 04/16/1994, Additional history existsMMR YjqzowmuUkuqohwxl19/25/1999, 10/22/1994 Meningococcal VaccineAged Out02/25/2007No longer eligible based on patient's age to complete this topicPneumococcal Vaccine: Pediatrics and At-Risk Adult PatientsAged Out01/14/2016No longer eligible based on patient's age to complete this topicHepatitis B OvqrhmsaAvkwcseup04/15/2024, 06/18/1994, 01/08/1994, Additional history existsHepatitis A VaccinesAged OutNo longer eligible based on patient's age to complete this topicRotavirus VaccinesAged OutNo longer eligible based on patient's age to complete this topic Procedures Procedure NamePriorityDate/TimeAssociated DiagnosisCommentsLAMOTRIGINERoutine 06/25/2025 11:10 AM ESTLIPID QDSCRGbxdrdy65/25/2025 1:43 PM EST Well adult health check from Last 3 Months or Most Recently Relevant to Health Maintenance Results * Lamotrigine (06/25/2025 11:10 AM EST)Specimen (Source)Anatomical Location / LateralityCollection Method / VolumeCollection TimeReceived TimeBloodVenous blood specimen / Unknown Narrative Authorizing ProviderResult TypeResult StatusHistorical Provider CARROL BLOOD ORDERABLESFinal Result * Lipid Panel (09/12/2024 1:43 PM EST)ComponentValueRef RangeTest MethodAnalysis TimePerformed AtPathologist SignatureCHOLESTEROL, BWAFR650<200 mg/dLQuest Meadows Psychiatric CenterHDL YFNSCPZUJAV02> OR = 50 mg/dLQuest Meadows Psychiatric CenterTRIGLYCERIDES103<150 mg/dLQuest Meadows Psychiatric CenterTswiknqywfrb-ZsqadqqpibSJF-UJCVTDJUGKT61zs/dL (calc)[facility] PennsylvaniaComment: Reference range: <100 Desirable range <100 mg/dL for primary prevention; <70 mg/dL for patients with CHD or diabetic patients with > or = 2 CHD risk factors. LDL-C is now calculated using the Dean calculation, which is a validated novel method providing better accuracy than the Friedewald equation in the estimation of LDL-C. Tres SS et al. STEPHANIE. 2013;310(19): 5940-2965 (http://education.KissMyAds/faq/WXR827) CHOL/HDLC RATIO3.2<5.0 (calc)[facility] of Eastern PennsylvaniaNON HDL KRTYFNMETXW905<130 mg/dL (calc)[facility] Comment: For patients with diabetes plus 1 major ASCVD risk factor, treating to a non-HDL-C goal of <100 mg/dL (LDL-C of <70 mg/dL) is considered a therapeutic option. Specimen (Source)Anatomical Location / LateralityCollection Method / Volume Collection TimeReceived TimeBloodVenous blood specimen / Lvkacks4209/12/2024 1:43 PM EST09/12/2024 1:[address] [facility] - 09/13/2024 6:42 AM EST FASTING:YES FASTING: YES Authorizing ProviderResult TypeResult StatusMonique Alison BRANHAM BLOOD ORDERABLESFinal ResultPerforming OrganizationAddressCity/State/ZIP CodePhone Number [facility] [address] [facility], [address] [place] [phone] from Last 3 Months or Most Recently Relevant to Health Maintenance Insurance MemberSubscriberPlan / Payer (Effective 2025-Present)Name:Kavya Guerrero Relation to Subscriber:SelfName:Kavya Guerrero Payer ID:[id number] (NAIC) Type:Not on file Address: [place] [id number] Care Teams Team MemberRelationshipSpecialtyStart [place] [address] [place], [place] [phone] [facility] - [facility]08/14/20
--- OUTSIDE RECORDS SUMMARY | 2025-07-14 10:51 | XMS_ITS | Encounter Summary ---
Author Organization [facility] Address [address] [place] [address] Phone Care Team Providers Care Power Tool Repairer Name Role Phone Suzanne Uriarte MD Primary Care Provider + Encounter Details DateTypeDepartmentCare Team (Latest Contact Info)Eunwdcuriju49/08/2025Orders Only [facility] [address] [place] [address] Dr Chiu [address] [phone] Provider, MD Emili On [place] [facility] [address] Social History Tobacco UseTypesPacks/DayYears UsedDateSmoking Tobacco: NeverPassive Smoke Exposure: NeverSmokeless Tobacco: CurrentAlcohol UseStandard Drinks/WeekComments Not Currently0 (1 standard drink = 0.6 oz pure alcohol)SociallyPHQ-2AnswerDate RecordedPatient Health Questionnaire-2 Jfblv72708/21/2024UDIT-CAnswerDate RecordedQ1: How often do you have a [...] Plan of Treatment DateTypeDepartmentCare Team (Latest Contact Info)Zywdjcefbjx25/18/2026 2:00 PM EDTOffice Visit [address] Chiu [address] [place] [address] Laila Jin, MARINE EQUIPMENT PRESERVATION INSPECTOR-AIRCONDITIONING DRAFTING OFFICER [address] [place] [address] documented as of this encounter Procedures Procedure [...] Team MemberRelationshipSpecialtyStart [place] [address] [address] PCP - General08/14/20documented as of this encounter
--- OUTSIDE RECORDS SUMMARY | 2025-07-14 10:51 | XMS_ITS | Encounter Summary ---
Author Organization [facility] Address [address] [facility] [place] [address] Care Team Providers Care Supervisor Aircraft Cleaning Name Role Phone Koffi Uriarte MD Primary Care Provider +1- [phone] Encounter Details DateTypeDepartmentCare Team (Latest Contact Info)Dneypscuhgw29/18/2025linisync Result Encounter [facility] External Department Unsolicited Lisa Chen DO [address] [place], [place] [address] Social History Tobacco UseTypesPacks/DayYears UsedDateSmoking Tobacco: Never Assessed Estimated Date of WalovnrrHzcozknuDyd08/02/2026Based on last menstrual period of 11/13/2024Sex and Gender InformationValueDate RecordedSex Assigned at BirthFemale 12/21/2022 8:22 PM EDTLegal CqzLpfvrj40/15/2023 11:40 PM EDTGender Identity Qtvfed6112/21/2022 8:22 PM EDTSexual SekiejbceloJdjbkwkn70/05/2023 8:22 PM EDT documented as of this encounter Plan of Treatment DateTypeDepartmentCare Team (Latest Contact Info)Hbtdujnkjhl89/05/2026 3:00 PM ESTAncillary Procedure [facility] [place] [address] [place] [address] 07/23/2025 3:30 PM ESTRoutine [facility] [place] [address] [place] [address] Lisa Chen, DO [address] [facility] [place] [address] documented as of this encounter Goals GoalPatient Goal TypeAssociated ProblemsRecent ProgressPatient-Stated?Author Reminders Care PlanOB RemindersNoOpen Scheduling, Backgrounddocumented as of this encounter Procedures Procedure NamePriorityDate/TimeAssociated DiagnosisCommentsUS OB BPP W NON-ITTSNC3407/05/2025 10:00 AM EST documented in this encounter Results * US OB BPP W NON-STRESS (07/05/2025 10:00 AM EST)Anatomical Region LateralityModalityOtherSpecimen (Source)Anatomical Location / Laterality Collection Method / VolumeCollection TimeReceived Time07/05/2025 10:00 AM EST Narrative 07/05/2025 10:02 AM EST [facility] ?[address] ? [place] [address] ? Ultrasound Report ? Signed ? Patient: PRINCESS HUNTER A ?MR#: [id number] ?? : 1995 ?Acct:[id number] ?? Age/Sex: 29 / F ?ADM Date: 07/04/25 ?? Loc: US ? Attending Dr: Lisa Chen D.O. ? Ordering Physician: Lisa Chen D.O. ?? Date of Service: 07/04/25 ?? Procedure(s): US OB BPP w non-stress ?? Accession Number(s): [id number] ? cc: Lisa Chen D.O.; KOFFI URIARTE M.D. ? [facility] ? [address] ? [place] [address] ? Patient Name: ?? PRINCESS HUNTER ? MRN: [id number] ? date: 1995 ?Sex: F ?? Assigned Patient Location: FBC ?? Current Patient Location: US ?? Accession/Order Number: [id number] ?? Exam Date: 07/04/2025 ??18:49 ?Report Date: [...] Dictation Location: RADIO-PC-30 ? Electronically authenticated by: [id number] ??Y ?? Date: 07/05/2025 ??10:00 ? Dictated By: ?Cyndi Pisano M.D. ? Signed By: ?12/18/25 1002 ? DD/ 1000 ? TD/TT: ? Core Java Software Engineer: Procedure Note Radiology, Radiologist, - 07/05/2025 [place] [address] Ultrasound Report Signed Patient: PRINCESS HUNTER AMR#: [id number] : 1995Acct:[id number] Age/Sex: 29 / FADM Date: 07/04/25 Loc: US Attending Dr: Lisa Chen D.O. Ordering Physician: Lisa Chen D.O. Date of Service: 07/04/25 Procedure(s): US OB BPP w non-stress Accession Number(s): [id number] cc: Lisa Chen D.O.; KOFFI URIARTE M.D. The [address] [address] Patient Name: PRINCESS HUNTER MRN: [id number] date: 1995 Sex: F Assigned Patient Location: [facility] Current Patient Location: [place] Accession/Order Number: [id number] Exam Date: 07/04/2025 18:49 Report Date: 07/05/2025 [...] Pisano M.D. 07/05/2025 10:00 AM Dictation Location: [facility]ITALStudyTubePROVID[facility]TOC[facility] Electronically authenticated by: [id number] Y Date: 0:00 Dictated By: Cyndi Pisano M.D. Signed By:07/05/25 1002 DD/ 1000 TD/TT: Core Java Software Engineer: Authorizing ProviderResult TypeResult StatusCorechristina Chen DOCLINISYNC IMAGINGFinal Result documented in this encounter Visit Diagnoses Not on filedocumented in this encounter Additional Health Concerns Active ProblemsNoted DateDiagnosed DateOB Qfttnqdnp92/29/2023 documented as of this encounter Care Teams Team MemberRelationshipSpecialtyStart [place] [address] [address] PCP - GeneralFamily Medicine01/14/23documented as of this encounter
--- OUTSIDE RECORDS SUMMARY | 2025-07-14 10:51 | XMS_ITS | Encounter Summary ---
Author Organization [facility] Address [address] [place] [place] [address] Care Team Providers Care Agricultural Equipment Operator Name Role Phone Koffi Uriarte MD Primary Care Provider +1- [phone] Encounter Details DateTypeDepartmentCare Team (Latest Contact Info)Rpsvdlhkjlz25/24/2025linisync Result Encounter [facility] External Department Unsolicited Lisa Chen DO [address] [place], [place] [id number] Social History Tobacco UseTypesPacks/DayYears UsedDateSmoking Tobacco: Never Assessed Estimated Date of WzywteffChnumibkDuh26/02/2026Based on last menstrual period of 11/13/2024Sex and Gender InformationValueDate RecordedSex Assigned at BirthFemale 12/21/2022 8:22 PM EDTLegal GtqVdrpaf68/15/2023 11:40 PM EDTGender Identity Vbywdg7812/21/2022 8:22 PM EDTSexual KnrlpynjhkeZuubxecu40/05/2023 8:22 PM EDT documented as of this encounter Plan of Treatment DateTypeDepartmentCare Team (Latest Contact Info)Mtddmttedjl86/05/2026 3:00 PM ESTAncillary Procedure [facility] [address] [place] [address] 07/23/2025 3:30 PM ESTRoutine [facility] [place] [address] [place] [address] Lisa Chen, DO [address] [facility] [place] [address] documented as of this encounter Goals GoalPatient Goal TypeAssociated ProblemsRecent ProgressPatient-Stated?Author Reminders Care PlanOB RemindersNoOpen Scheduling, Backgrounddocumented as of this encounter Procedures Procedure NamePriorityDate/TimeAssociated DiagnosisCommentsUS OB BPP W NON-OEUWRL7407/11/2025 9:06 AM EST documented in this encounter Results * US OB BPP W NON-STRESS (07/11/2025 9:06 AM EST)Anatomical Region LateralityModalityOtherSpecimen (Source)Anatomical Location / Laterality Collection Method / VolumeCollection TimeReceived Time07/11/2025 9:06 AM EST Narrative 07/11/2025 9:08 AM EST [facility] ?[address] ? [place] [address] ? Ultrasound Report ? Signed ? Patient: PRINCESS HUNTER A ?MR#: [id number] ?? : 1995 ?Acct:[id number] ?? Age/Sex: 29 / F ?ADM Date: 07/10/25 ?? Loc: US ? Attending Dr: Lisa Chen D.O. ? Ordering Physician: Lisa Chen D.O. ?? Date of Service: 07/10/25 ?? Procedure(s): US OB BPP w non-stress ?? Accession Number(s): [id number] ? cc: Lisa Chen D.O.; KOFFI URIARTE M.D. ? [facility] ? [address] ? [place] [address] ? Patient Name: ?? PRINCESS HUNTER ? MRN: [id number] ? date: 1995 ?Sex: F ?? Assigned Patient Location: FBC ?? Current Patient Location: ? Accession/Order Number: [id number] ?? Exam Date: 07/10/2025 ??17:18 ?Report Date: [...] Dictation Location: RADIO-PC-30 ? Electronically authenticated by: [id number] ??Y ?? Date: 07/11/2025 ??09:06 ? Dictated By: ?Cyndi Pisano M.D. ? Signed By: ?12/24/25 0908 ? DD/ 0906 ? TD/TT: ? Electronic Resources Librarian: Procedure Note Radiology, Radiologist, MD - 07/11/2025 [place] [address] Ultrasound Report Signed Patient: PRINCESS HUNTER AMR#: [id number] : 1995Acct:[id number] Age/Sex: 29 / FADM Date: 07/10/25 Loc: US Attending Dr: Lisa Chen D.O. Ordering Physician: Lisa Chen D.O. Date of Service: 07/10/25 Procedure(s): US OB BPP w non-stress Accession Number(s): [id number] cc: Lisa Chen D.O.; KOFFI URIARTE M.D. The [address] [address] Patient Name: PRINCESS HUNTER MRN: [id number] date: 1995 Sex: F Assigned Patient Location: [facility] Current Patient Location: Accession/Order Number: [id number] Exam Date: 07/10/2025 17:18 Report Date: 07/11/2025 09:06 At the request of: LISA CHEN DO Procedure: US OB BPP w non-stress BIOPHYSICAL PROFILE: CLINICAL INFORMATION: Hypertension, unspecified TYPE I1O COMPARISON: 07/04/2025 There is a single live intrauterine gestation in cephalic presentation.The reported gestational age is 34 weeks 1 day. The heart rate hvxekogb970 beats per minute. FINDINGS: TONE: 1 or [...] Pisano M.D. 07/11/2025 9:06 AM Dictation Location: [employer] Electronically authenticated by: [id number] Y Date: 509:06 Dictated By: Cyndi Pisano M.D. Signed By:07/11/25907 DD/ 5 TD/TT: Electronic Resources Librarian: Authorizing ProviderResult TypeResult StatusCorey April DOCLINISYNC IMAGINGFinal Result documented in this encounter Visit Diagnoses Not on filedocumented in this encounter Additional Health Concerns Active ProblemsNoted DateDiagnosed DateOB Dzngjozat40/29/2023 documented as of this encounter Care Teams Team MemberRelationshipSpecialtyStart [place] [address] [place] [address] PCP - GeneralFamily Medicine01/14/23documented as of this encounter
--- OUTSIDE RECORDS SUMMARY | 2025-07-14 10:51 | XMS_ITS | Encounter Summary ---
Author Organization [facility] Address [address] [facility] [place] [address] Care Team Providers Care Wafer Fabricator Name Role Phone Suzanne Uriarte MD Primary Care Provider +1- [phone] Encounter Details DateTypeDepartmentCare Team (Latest Contact Info)Hrlqgzqrfee57/15/2025Travel Social History Tobacco UseTypesPacks/DayYears UsedDateSmoking Tobacco: Never Assessed Estimated Date of JtppultjRshsmozpPya81/02/2026ased on last menstrual period of 11/13/2024Sex and Gender InformationValueDate RecordedSex Assigned at BirthFemale 12/21/2022 8:22 PM EDTLegal PxyWhdthv38/15/2023 11:40 PM EDTGender Identity Sgfpkv9712/21/2022 8:22 PM EDTSexual KwlakoatjevIogmpfil37/05/2023 8:22 PM EDT documented as of this encounter Plan of Treatment DateTypeDepartmentCare Team (Latest Contact Info)Vdgpotbzfub13/05/2026 3:00 PM ESTAncillary Procedure JOSY [facility] [address] [place] [address] 07/23/2025 3:30 PM ESTRoutine JOSY [facility] [address] [place] [address] Willis Chen DO [address] [facility] [address] [place], [facility] documented as of this encounter Goals GoalPatient Goal TypeAssociated ProblemsRecent ProgressPatient-Stated?Author Reminders Care PlanOB RemindersNoOpen Scheduling, Backgrounddocumented as of this encounter Visit Diagnoses Not on filedocumented in this encounter Additional Health Concerns Active ProblemsNoted DateDiagnosed DateOB Sgceyjffc93/29/2023 documented as of this encounter Care Teams Team MemberRelationshipSpecialtyStart [place] [address] [place], [place] [address] PCP - GeneralFamily Medicine01/14/23documented as of this encounter
[2025-07-14 10:57] VITALS: BP 123/55; PULSE 83
== END 2025-07-14 11:45 | disposition home or self-care (01) ==
LOC: FBCO 10:46 → FBC 10:48
PROVIDERS: PCP Family Medicine; Visit Provider Obstetrics & Gynecology
DX: O36.5930 Maternal care for other known or suspected poor fetal growth, third trimester, not applicable or unspecified (principal); Z3A.34 34 weeks gestation of pregnancy
CPT/HCPCS: 59025

== ENCOUNTER 2025-07-18 18:43 | Outpatient (OUT) | payer BC, SELFPAY ==
--- OUTSIDE RECORDS SUMMARY | 2025-07-09 16:00 | XMS_ITS | Encounter Summary ---
Author Organization [facility] Address [address] [place] [address] Care Team Providers Care Fiber Design Engineer Name Role Phone Suzanne Uriarte MD Primary Care Provider +1- [phone] Reason for Visit * ReasonCommentsRoutine Visit Encounter Details DateTypeDepartmentCare Team (Latest Contact Info)Wcplbncurle70/22/2025 4:00 PM ESTRoutine [facility] [address] [place] [address] Roula Grullon PA [address] [place] [address] 34 weeks gestation of ([facility]); Third trimester ([facility]); Seizure (HCC); Hypertension, unspecified type; Antepartum anemia ([facility]); SGA (small for gestational age) ([facility]) Social History Tobacco UseTypesPacks/DayYears UsedDateSmoking Tobacco: Never Assessed Estimated Date of BqffdibrMrxpgzihKuo75/02/2026Based on last menstrual period of 11/13/2024Sex and Gender InformationValueDate RecordedSex Assigned at BirthFemale 12/21/2022 8:22 PM EDTLegal OqjAgvxxa13/15/2023 11:40 PM EDTGender Identity Spnkxi7412/21/2022 8:22 PM EDTSexual YkxajqtbyxvUxkavzch55/05/2023 8:22 PM EDT documented as of this encounter Last Filed Vital Signs Vital SignReadingTime TakenCommentsBlood Izkaigwj419/6012 4:05 PM EST Pulse--Temperature--Respiratory Rate--Oxygen Saturation--Inhaled Oxygen Concentration--Hnjdje87.2 kg (201 lb)07/09/2025 4:05 PM ESTHeight--Body Mass [...] Date Noted Hypertension 01/14/2023 Seizure ([facility]) 07/09/2021 Breech presentation, no version ([facility]) 07/29/2023 Resolved Ambulatory Problems Diagnosis Date Noted [...] nursing note reviewed. Exam conducted with a senior contracts administrator present. Vitals: Estimated body mass index is 29.68 kg/m?? as calculated from the following: Height as of 11/16/22: 5' 9 . Weight as of this encounter: 201 lb. BP: 110/60 Patient's last menstrual period was 11/13/2024. Assessment/Plan ICD-10-CM 1. 34 weeks gestation of ([facility]) Z3A.34 Urine culture POCT urinalysis dipstick manually resulted 2. Third trimester ([facility]) Z34.93 Urine culture POCT urinalysis dipstick manually resulted 3. Seizure ([facility]) R56.9 4. Hypertension, unspecified type I10 5. Antepartum anemia ([facility]) O99.019 6. SGA (small for gestational age) ([facility]) P05.10 Assessment/Plan Return OB: Patient presents [...] Plan of Treatment DateTypeDepartmentCare Team (Latest Contact Info)Gsosmeodqps02/05/2026 3:00 PM ESTAncillary Procedure [facility] [address] [place] [address] 07/23/2025 3:40 PM ESTRoutine [facility] [address] [place] [address] Willis Chen, [address] [place] [address] NameTypePriorityAssociated DiagnosesOrder ScheduleUrine cultureMicrobiology Routine 34 weeks gestation of ([facility]) Third trimester ([facility]) Ordered: 07/09/2025documented as of this encounter Goals GoalPatient Goal TypeAssociated ProblemsRecent ProgressPatient-Stated?Author Reminders Care PlanOB RemindersNoOpen Scheduling, Backgrounddocumented as of this encounter Procedures Procedure NamePriorityDate/TimeAssociated DiagnosisCommentsPOCT URINALYSIS ZXEBVRMARxrnbhc46/22/2025 4:14 PM EST 34 weeks gestation of ([facility]) Third trimester ([facility]) documented in this encounter Results * [...] EST Narrative Authorizing ProviderResult TypeResult StatusAmy Mitchel [facility] TEST ENTER/EDIT ORDERABLESFinal Result documented in this encounter Visit Diagnoses Diagnosis 34 weeks gestation of ([facility]) Third trimester ([facility]) state, incidental Seizure (HCC) Other convulsions Hypertension, unspecified type Antepartum anemia ([facility]) SGA (small for gestational age) ([facility]) Pkhpi-gau-gjwep without mention of malnutrition, unspecified (weight) documented in this encounter Additional Health Concerns Active ProblemsNoted DateDiagnosed DateOB Uuhoseyfa56/29/2023 documented as of this encounter Care Teams Team MemberRelationshipSpecialtyStart [place] [address] [place] [address] PCP - GeneralFamily Medicine01/14/23documented as of this encounter
--- OUTSIDE RECORDS SUMMARY | 2025-07-18 18:46 | XMS_ITS | Clinical Summary ---
Author Organization [facility] Address [address] [place] [address] Care Team Providers Care Adult Specialist Name Role Phone Koffi Uriarte MD Primary Care Provider [phone] Allergies No known active allergies Medications MedicationSigDispense [...] Problems ProblemNoted DateDiagnosed DateBreech presentation, no version ([facility]) 07/29/20234807Plbwmioozjhy45/29/3887Idyaqzy23/22/2021Estimated Date of ClkijmedEuohvxxcKdg99/02/2026Based on last menstrual period of 11/13/2024 Encounters DateTypeDepartmentCare IzenOhvfhcxmmvk26/30/2025bstract [facility] [place] [facility] [address] [place] [address] Lisa Chen, DO 07/16/20250498Yawbdt27/24/2025linisync Result Encounter NOM[facility] External Department Unsolicited Lisa Chen, DO 07/10/2025bstract [facility] [place] [facility] [address] [place] [address] Lisa Chen, DO 07/09/2025 4:00 PM ESTRoutine [facility] [place] [facility] [address] [place] [address] Roula Grullon PA 34 weeks gestation of ([facility]); Third trimester ([facility]); Seizure ([facility]); Hypertension, unspecified type; Antepartum anemia ([facility]); SGA (small for gestational age) ([facility])07/09/2025amboo flowsheet [facility] [place] [facility] [address] [place] [address] Roula Grullon PA 07/05/2025linisync Result Encounter NOMS External Department Unsolicited Lisa Chen, DO 07/02/20255045Ttscun11/11/2025bstract [facility] [place] [facility] [address] [place] [address] Lisa Chen, DO 06/27/2025 3:00 PM ESTRoutine [facility] [place] [facility] [address] [place] [address] Lisa Chen, DO Third trimester ([facility]); 32 weeks gestation of ([facility]); Seizure (HCC); Hypertension, unspecified type; Antepartum anemia ([facility]); SGA (small for gestational age) ([facility])06/27/2025bstract [facility] [place] [facility] [address] [place] [address] Lisa Chen, DO 06/27/2025Telephone [facility] [facility] [address] [place] [address] [address] [employer] 06/27/2025amboo flowsheet [facility] [place] [facility] [address] [place] [address] Lisa Chen, DO 06/26/2025bstract [facility] [place] [facility] [address] [place] [address] [place] [address] Lisa Chen, DO 06/25/2025bstract [facility] [place] [facility] [address] [place] [address] [place] [address] Lisa Chen, DO 06/25/2025bstract [facility] [place] [facility] [address] [place] [address] [place] [address] Lisa Chen, DO 06/25/2025Telephone [facility] [place] [facility] [address] [facility] [place] [address] Lisa Chen, DO 06/21/2025bstract [facility] [address] [place] [address] [place] [address] Lisa Chen, DO 06/21/2025bstract [facility] [place] [facility] [address] [place] [address] [place] [address] Lisa Chen, DO 06/20/20251382Bygqlo93/01/2025bstract [facility] [place] [facility] [address] [place] [address] [place] [address] Lisa Chen, DO 5Clinisync Result Encounter NOMS External Department Unsolicited Roula Grullon PA 06/13/2025 3:00 PM ESTRoutine [facility] [place] [facility] [address] [place] [address] Roula Grullon PA Third trimester ([facility]); 30 weeks gestation of ([facility]); Antepartum anemia ([facility])06/13/2025 2:30 PM ESTAncillary Procedure [facility] [place] [facility] [address] [facility] [place] [address] Hypertension, unspecified type; Seizure (HCC)06/13/2025bstract [facility] [place] [facility] [address] [place] [address] Lisa Chen, DO 06/13/2025bstract [facility] [place] [facility] [address] [address] Lisa Chen, DO 06/13/2025bstract [facility] [place] [facility] [address] [place] [address] Lisa Chen, DO 5Clinisync Result Encounter NOMS External Department Unsolicited Lisa Chen, DO 06/12/20254883Rragst95/25/2025Telephone [facility] [place] [facility] [address] [place] [address] Lisa Chen, DO 05/29/2025 11:40 AM ESTRoutine [facility] [place] [facility] [address] [place] [address] Lisa Chen, DO 28 weeks gestation of ([facility]); Third trimester ([facility]); Hypertension, unspecified type; Seizure (HCC); Hemoglobin low05/29/2025amboo flowsheet [facility] [place] [facility] [address] [facility] [place] [address] Lisa Chen DO 05/22/20258590Paxhqc17/01/2025linisync Result Encounter NOMS External Department Unsolicited Roula Grullon PA 04/30/2025 9:50 AM EDTRoutine [facility] [place] [facility] [address] Roula Grullon PA Second trimester ([facility]); 24 weeks gestation of ([facility]); Hypertension, unspecified type; Seizure ([facility]); Diabetes mellitus lktahevhq32/13/2025amb flowsheet [facility] [place] [facility] [address] [facility] [place] [address] Roula Grullon PA 04/29/20253164Wagkho65/01/2025Refill [facility] [place] [facility] [address] [place] [address] [place] [address] Lisa Chen DO Secondary hypertensionfrom Last 3 Months Social History Tobacco UseTypesPacks/DayYears UsedDateSmoking Tobacco: Never Assessed Estimated Date of KgdfhaleGwwqlnypYhy81/02/2026ased on last menstrual period of 11/13/2024Sex and Gender InformationValueDate RecordedSex Assigned at BirthFemale 12/21/2022 8:22 PM EDTLegal ThqGhwhnn24/15/2023 11:40 PM EDTGender Identity Gbtuok6112/21/2022 8:22 PM EDTSexual LlaybuliickCadmmcny17/05/2023 8:22 PM EDT Last Filed Vital Signs Vital SignReadingTime TakenCommentsBlood Ecxnbdnp914/6007/09/2025 4:05 PM EST Pulse--Temperature--Respiratory Rate--Oxygen Saturation--Inhaled Oxygen Concentration--Nlyulh02.2 kg (201 lb)07/09/2025 4:05 PM WVHGqpydi192.3 cm (5' 9 )11/16/2022 12:00 PM EDTBody Mass Index29.680507/2022 12:00 PM EDT Plan of Treatment DateTypeDepartmentCare Team (Latest Contact Info)Altsksqtvyd37/05/2026 3:00 PM ESTAncillary Procedure [facility] [place] [facility] [address] [facility] [place] [address] 07/23/2025 3:40 PM ESTRoutine [facility] [place] [facility] [address] [facility] [place] [address] AprilLisa, DO [address] [facility] [place] [address] Health MaintenanceDue DateLast DoneCommentsHPV/Qovsdv1810/02/2023Influenza Vaccine (#1), 04/21/2022, 04/18/2021, Additional history exists Cervical Cancer Nlejemvhc19/20/2028Pap Smear, 03/09/2023 Pneumococcal Vaccine: Pediatrics (0 to 5 Years) and At-Risk Patients (6 to 64 Years)Aged OutNo longer eligible based on patient's age to complete this topic Goals GoalPatient Goal TypeAssociated ProblemsRecent ProgressPatient-Stated?Author Reminders Care PlanOB RemindersNoOpen Scheduling, Background Procedures Procedure NamePriorityDate/TimeAssociated DiagnosisCommentsUS OB BPP W NON-YMOTAE8607/11/2025 9:06 AM EST URINARY TRACT INFECTION (HTRX)Qrbvybj1607/09/2025 4:39 PM EST POCT URINALYSIS RWNGLXJHExkvylv53/22/2025 4:14 PM EST 34 weeks gestation of ([facility]) Third trimester ([facility]) US OB BPP W NON-CSYQBB6907/05/2025 10:00 AM EST POCT URINALYSIS YTGGYKZDLuhwinb64/04/2025 3:20 PM EST Third trimester ([facility]) YZZPUKACAHNXpmldwi40/28/2025 2:57 PM EST CCF OTSFLJOFBplnjtb18/28/2025 2:57 PM EST POCT URINALYSIS FZJNHPYGHwobivc67/26/2025 3:11 PM EST Third trimester ([facility]) US OB FOLLOW UP TRANSABDOMINAL TTLFORRBMmmggsr33/26/2025 3:02 PM EST Hypertension, unspecified type Seizure (HCC) TBH UA (CLEAN/CATCH) CABLE BRAIDER/MICRO IF IND.Huklezz1506/12/2025 4:40 PM EST POCT URINALYSIS ODODCELYYvmxdfq10/11/2025 11:46 AM EST 28 weeks gestation of ([facility]) Third trimester ([facility]) GLUCOSE 1 JOOTCbnthei19/01/2025 12:28 PM EDT ALL CBC WITH AUTO ZVSZRfwpswn72/01/2025 12:28 PM EDT POCT URINALYSIS KYMQBPDKFdowtls96/13/2025 10:14 AM EDT Second trimester ([facility]) PAP NCEIHQgijhwu73/20/2025 12:00 AM EDTfrom Last 3 Months or Most Recently Relevant to Health Maintenance Results * US OB BPP W NON-STRESS (07/11/2025 9:06 AM EST) Only the most recent of2 resultswithin the time period is included. Anatomical RegionLateralityModalityOtherSpecimen (Source)Anatomical Location / LateralityCollection Method / VolumeCollection TimeReceived Time07/11/2025 9:06 AM EST Narrative 07/11/2025 9:08 AM EST [facility] ?[address] ? [place] [address] ? Ultrasound Report ? Signed ? Patient: HUNTER,PRINCESS A ?MR#: [id number] ?? : 1995 ?Acct:[id number] ?? Age/Sex: 29 / F ?ADM Date: 12/23/25 ?? Loc: US ? Attending Dr: Lisa Chen D.O. ? Ordering Physician: Lisa Chen D.O. ?? Date of Service: 07/10/25 ?? Procedure(s): US OB BPP w non-stress ?? Accession Number(s): [id number] ? cc: Lisa Chen D.O.; KOFFI URIARTE M.D. ? [facility] ? [address] ? [place] [address] ? Patient Name: ?? PRINCESS HUNTER ? MRN: [facility]:[id number] ? date: 1995 ?Sex: F ?? Assigned Patient Location: FB ?? Current Patient Location: ? Accession/Order Number: [id number] ?? Exam Date: 07/10/2025 ??17:18 ?Report Date: [...] Dictation Location: RADIO-PC-30 ? Electronically authenticated by: [id number] ??Y ?? Date: 07/11/2025 ??09:06 ? Dictated By: ?Cyndi Pisano M.D. ? Signed By: ?07/11/25 0908 ? DD/ 0906 ? TD/TT: ? Cableway Operator: Procedure Note Radiology, Radiologist, MD - 07/11/2025 [place] [address] Ultrasound Report Signed Patient: PRINCESS HUNTER [facility]#: [id number] : 1995Acct:[id number] Age/Sex: 29 / FADM Date: 07/10/25 Loc: US Attending Dr: Lisa Chen D.O. Ordering Physician: Lisa Chen D.O. Date of Service: 07/10/25 Procedure(s): US OB BPP w non-stress Accession Number(s): [id number] cc: Lisa Chen D.O.; KOFFI URIARTE M.D. [facility] [place] [id number] Patient Name: PRINCESS HUNTER MRN: [facility]:[id number] date: 1995 Sex: F Assigned Patient Location: [facility] Current Patient Location: Accession/Order Number: [id number] Exam Date: 07/10/2025 17:18 Report Date: 07/11/2025 09:06 At the request of: LISA CHEN DO Procedure: US OB BPP w non-stress BIOPHYSICAL PROFILE: CLINICAL INFORMATION: Hypertension, unspecified TYPE I1O COMPARISON: 07/04/2025 There is a single live intrauterine gestation in cephalic presentation.The reported gestational age is 34 weeks 1 day. The heart rate lkmccoug522 beats per minute. FINDINGS: TONE: 1 or [...] Pisano M.D. 07/11/2025 9:06 AM Dictation Location: [employer] Electronically authenticated by: [id number] Y Date: 509:06 Dictated By: Cyndi Pisano M.D. Signed By:07/11/25907 DD/ 5 TD/TT: Cableway Operator: Authorizing ProviderResult TypeResult StatusCorey April DOCLINISYNC IMAGINGFinal Result * URINARY TRACT INFECTION (HTRX) (07/09/2025 4:39 PM EST)ComponentValueRef Range Test MethodAnalysis TimePerformed AtPathologist SignatureACINETOBACTER ALSDHGHV618.961 - 24.689 ppm07/11/2025 6:18 AM ESTHealth[facility]Rx [facility] ACINETOBACTER BAUMANIINot Qsakqulz90.961 - 24.689 ppm07/11/2025 6:18 AM EST [facility] LabPortCITROBACTER AGBXGFHX647.000 - 32.015 ppm07/11/2025 6:18 AM ESTHealthTrackRx at LabPortCITROBACTER FREUNDIINot Maprtuzf80.000 - 32.015 ppm07/11/2025 6:18 AM ESTHealthTrackRx at LabPortENTEROBACTER AEROGENES, TNYSZOC237.000 - 32.290 ppm07/11/2025 6:18 AM ESTHealthTrackRx at LabPortENTEROBACTER AEROGENES, CLOACAENot Kyaoucaj24.000 - 32.290 ppm 07/11/2025 6:18 AM ESTHealthTrackRx at LabPortENTEROCOCCUS FAECALIS, FAECIUM0 26.000 - 33.043 ppm07/11/2025 6:18 AM ESTHealthTrackRx at LabPortENTEROCOCCUS FAECALIS, FAECIUMNot Ijjvnltk96.000 - 33.043 ppm07/11/2025 6:18 AM EST [facility] at LabPortESCHERICHIA ADSD790.000 - 28.500 ppm07/11/2025 6:18 AM ESTHealthTrackRx at LabPortESCHERICHIA COLINot Edqrzngf53.000 - 28.500 ppm 07/11/2025 6:18 AM ESTHealthTrackRx at LabPortKLEBSIELLA PNEUMONIAE, OXYTOCA0 23.000 - 31.865 ppm07/11/2025 6:18 AM ESTHealthTrackRx at LabPortKLEBSIELLA PNEUMONIAE, OXYTOCANot Aofgmobz28.000 - 31.865 ppm07/11/2025 6:18 AM EST [facility] at LabPortMORGANELLA QVFQOEVE790.961 - 24.689 ppm07/11/2025 6:18 AM ESTHealthTrackRx at LabPortMORGANELLA MORGANIINot Hvlfbmhr50.961 - 24.689 ppm12 6:18 AM ESTHealthTrackRx at LabPortPROTEUS MIRABILIS, VULGARIS0 23.000 - 28.500 ppm12 6:18 AM ESTHealthTrackRx at LabPortPROTEUS MIRABILIS, VULGARISNot Kevcktzv23.000 - 28.500 ppm07/11/2025 6:18 AM EST [facility] at LabPortPSEUDOMONAS UUBEXJMLZM464.000 - 31.801 ppm07/11/2025 6:18 AM ESTHealthTrackRx at LabPortPSEUDOMONAS AERUGINOSANot Atewqsin47.000 - 31.801 ppm07/11/2025 6:18 AM ESTHealthTrackRx at LabPortSTAPHYLOCOCCUS AUREUS0 26.000 - 31.595 ppm07/11/2025 6:18 AM ESTHealth[facility] STAPHYLOCOCCUS AUREUSNot Odetoeyh27.000 - 31.595 ppm07/11/2025 6:18 AM EST [facility] at LabPortSTREPTOCOCCUS AGALACTIAE (GROUP B STREP)026.000 - 32.435 ppm07/11/2025 6:18 AM ESTHealthTrackRx at LabPortSTREPTOCOCCUS AGALACTIAE (GROUP B STREP)Not Iauuxqcp84.000 - 32.435 ppm12 6:18 AM ESTHealthTrackRx at LabPortCANDIDA ALBICANS, PARAPSILOSIS, GCQMRURKIA571.000 - 30.347 ppm07/11/2025 6:18 AM ESTHealthTrackRx at LabPortCANDIDA ALBICANS, PARAPSILOSIS, TROPICALISNot Pkbvckmv34.000 - 30.347 ppm12 6:18 AM EST [facility]PortCANDIDA PVLZJVVC989.000 - 31.618 ppm07/11/2025 6:18 AM ESTHealthTrackRx at LabPortCANDIDA GLABRATANot Tgzdciyn50.000 - 31.618 ppm 07/11/2025 6:18 AM ESTHealthTrackRx at LabPortCANDIDA BBHFSQ319.000 - 30.873 ppm07/11/2025 6:18 AM ESTHealthTrackRx at LabPortCANDIDA KRUSEINot Detected 23.000 - 30.873 ppm07/11/2025 6:18 AM ESTHealthTrackRx at LabPortSERRATIA NAHRHGYEIA620.000 - 31.581 ppm07/11/2025 6:18 AM EST[facility] SERRATIA MARCESCENSNot Aqjprgqv83.000 - 31.581 ppm07/11/2025 6:18 AM EST [facility] at LabPortSTREPTOCOCCUS PYOGENES (GROUP A STREP)019.961 - 24.689 ppm07/11/2025 6:18 AM ESTHealthTrackRx at LabPortSTREPTOCOCCUS PYOGENES (GROUP A STREP)Not Wwjuabbq10.961 - 24.689 ppm07/11/2025 6:18 AM EST [facility]PortSTAPHYLOCOCCUS EPIDERMIDIS, HAEMOLYTICUS, LUGDUNENSIS, SAPROPHYTICUS (YOIPO773.961 - 24.689 ppm07/11/2025 6:18 AM ESTHealthTrackRx at LabPortSTAPHYLOCOCCUS EPIDERMIDIS, HAEMOLYTICUS, LUGDUNENSIS, SAPROPHYTICUS (URINANot Ujlnwyaz46.961 - 24.689 ppm07/11/2025 6:18 AM ESTHealthTrackRx at LabPortSTAPHYLOCOCCUS EPIDERMIDIS, HAEMOLYTICUS, LUGDUNENSIS, SAPROPHYTICUS (FTUDV331.961 - 24.689 ppm07/11/2025 6:18 AM EST[facility] STAPHYLOCOCCUS EPIDERMIDIS, HAEMOLYTICUS, LUGDUNENSIS, SAPROPHYTICUS (URINANot Daxbccte80.961 - 24.689 ppm07/11/2025 6:18 AM EST[facility] Specimen (Source)Anatomical Location / LateralityCollection Method / Volume Collection TimeReceived BljyNdpla47/22/2025 4:39 PM EST07/11/2025 1:24 AM EST Narrative Authorizing ProviderResult TypeResult StatusAmy Mitchel PAL BLOOD ORDERABLES Final ResultPerforming OrganizationAddressCity/State/ZIP CodePhone Number [facility] [address] [address] * POCT urinalysis dipstick manually resulted (07/09/2025 [...] Location / LateralityCollection Method / VolumeCollection TimeReceived QfdwOoyca08/22/2025 4:14 PM EST Narrative Authorizing ProviderResult TypeResult StatusRoula Grullon PAPOINT OF CARE TEST ENTER/EDIT ORDERABLESFinal Result * (ABNORMAL) TRANSFERRIN (06/15/2025 2:57 PM EST)ComponentValueRef RangeTest MethodAnalysis TimePerformed AtPathologist JgibgwcgkYAIOXOFKTFP323(A)192 - 364 mg/dLTBHComment: Performed at: ?? - [facility] [address] ??[id number] Lugger: Jose Fallon PhD, Phone: ??[phone] Specimen (Source)Anatomical Location / LateralityCollection Method / Volume Collection TimeReceived Time06/15/2025 2:57 PM EST06/15/2025 2:59 PM EST Narrative CLINISYNC - 06/16/2025 7:07 AM EST Authorizing ProviderResult TypeResult StatusAmy Mitchel PALAB BLOOD ORDERABLES Final ResultPerforming OrganizationAddressCity/State/ZIP CodePhone Number [facility] * (ABNORMAL) [facility] FERRITIN (06/15/2025 2:57 PM EST)ComponentValueRef RangeTest MethodAnalysis TimePerformed AtPathologist SignatureFERRITIN6.0(L)8.0 - 252.0 ng/mLTBHSpecimen (Source)Anatomical Location / LateralityCollection Method / VolumeCollection TimeReceived Time06/15/2025 2:57 PM EST06/15/2025 2:59 PM EST Narrative DRAGANISYNC - 06/15/2025 3:40 PM EST Authorizing ProviderResult TypeResult StatusAmy Mitchel PACLINISYNCFinal Result Performing OrganizationAddressCity/State/ZIP CodePhone Number [facility] * US OB follow up transabdominal [...] Eid MD Authorizing ProviderResult TypeResult StatusCorechristina Chen DOIMG OB US PROCEDURES Final Result * (ABNORMAL) TBH UA (CLEAN/CATCH) CABLE BRAIDER/MICRO IF IND. (06/12/2025 4:40 PM EST) ComponentValueRef [...] 06/12/2025 5:32 PM EST Authorizing ProviderResult TypeResult StatusLisa Chen DOCLINISYNCFinal Result Performing OrganizationAddressCity/State/ZIP CodePhone Number [facility]NC [facility] * GLUCOSE 1 HOUR (05/19/2025 12:28 PM EDT)ComponentValueRef RangeTest Method Analysis TimePerformed AtPathologist SignatureGLUCOSE 1 RZTN371<130 mg/dLTBH Specimen (Source)Anatomical Location / LateralityCollection Method / Volume Collection TimeReceived Time05/19/2025 12:28 PM EDT107/19/2024 12:29 PM EDT Narrative CLINISYNC - 05/19/2025 1:15 PM EDT Authorizing ProviderResult TypeResult StatusAmy Purdin PALAB BLOOD ORDERABLES Final ResultPerforming OrganizationAddressCity/State/ZIP CodePhone Number CLINISYNC TB * (ABNORMAL) ALL CBC WITH AUTO DIFF (05/19/2025 12:28 PM EDT)ComponentValueRef RangeTest MethodAnalysis TimePerformed AtPathologist SignatureTBH WBC9.84.0 - 11.0 10 3/uLTBHTBH RBC3.21(L)4.20 - 5.40 10 6/uLTBHTBH HGB10.2(L)12.0 - 16.0 g/dLTBHTBH HCT30.2(L)36.0 - 48.0 %TBHTBH MCV94.181.0 - 99.0 fLTBHTBH MCH31.8 26.7 - 34.0 pgTBHTBH MCHC33.829.9 - 35.2 g/dLTBHTBH RDW12.311.0 - 15.0 %TBHTBH KUU295094 - 450 10 3/uLTBHTBH MPV8.9(L)9.5 - 13.5 [...] Additional Health Concerns Active ProblemsNoted DateDiagnosed DateOB Edwultias46/29/2023 Insurance Care Teams Team MemberRelationshipSpecialtyStart [place] [address] [place] [address] PCP - GeneralFamily Medicine01/14/23
--- OUTSIDE RECORDS SUMMARY | 2025-07-18 18:46 | XMS_ITS | Encounter Summary ---
Author Organization [facility] Address [address] [facility] [place] [address] Care Team Providers Care Nurse Transitional Name Role Phone Suzanne Uriarte MD Primary Care Provider [phone]- [phone] Encounter Details DateTypeDepartmentCare Team (Latest Contact Info)Titutujhjzg04/29/2025Travel Social History Tobacco UseTypesPacks/DayYears UsedDateSmoking Tobacco: Never Assessed Estimated Date of RhstqzarTzcsxzwoKgd14/02/2026ased on last menstrual period of 11/13/2024Sex and Gender InformationValueDate RecordedSex Assigned at BirthFemale 12/21/2022 8:22 PM EDTLegal PuzGbdcml95/15/2023 11:40 PM EDTGender Identity Xtebvl6612/21/2022 8:22 PM EDTSexual UgzyydvbwjgSfpxlhfb58/05/2023 8:22 PM EDT documented as of this encounter Plan of Treatment DateTypeDepartmentCare Team (Latest Contact Info)Zmpokytklbk93/05/2026 3:00 PM ESTAncillary Procedure JOSY [facility] [address] [facility] [place] [address] 07/23/2025 3:40 PM ESTRoutine JOSY [facility] [address] [place] [address] Willis Chen DO [address] [place], [facility]11 documented as of this encounter Goals GoalPatient Goal TypeAssociated ProblemsRecent ProgressPatient-Stated?Author Reminders Care PlanOB RemindersNoOpen Scheduling, Backgrounddocumented as of this encounter Visit Diagnoses Not on filedocumented in this encounter Additional Health Concerns Active ProblemsNoted DateDiagnosed DateOB Kdkptedmk76/29/2023 documented as of this encounter Care Teams Team MemberRelationshipSpecialtyStart [place] [address] [place], [place] [address] PCP - GeneralFamily Medicine01/14/23documented as of this encounter
--- OUTSIDE RECORDS SUMMARY | 2025-07-18 18:46 | XMS_ITS | Encounter Summary ---
Author Organization [facility] Address [address] [facility] [place] [address] Care Team Providers Care Survival Equipment Repairer Name Role Phone Suzanne Uriarte MD Primary Care Provider [phone]- [phone] Encounter Details DateTypeDepartmentCare Team (Latest Contact Info)Eejlpduzaaq35/30/2025bstract [facility] [address] [facility] [place] [address] Willis Chen DO [address] [facility] [address] [place], [place] [id number] Social History Tobacco UseTypesPacks/DayYears UsedDateSmoking Tobacco: Never Assessed Estimated Date of NzsplljdHqfkmyfwDzl66/02/2026ased on last menstrual period of 11/13/2024Sex and Gender InformationValueDate RecordedSex Assigned at BirthFemale 12/21/2022 8:22 PM EDTLegal WkiTxvyjz29/15/2023 11:40 PM EDTGender Identity Fvlodu3612/21/2022 8:22 PM EDTSexual QvhvygfvmzdTsspoxgd97/05/2023 8:22 PM EDT documented as of this encounter Plan of Treatment DateTypeDepartmentCare Team (Latest Contact Info)Zwgytxwphsy42/05/2026 3:00 PM ESTAncillary Procedure [facility] [facility] [address] [place] [address] 07/23/2025 3:40 PM ESTRoutine [facility] [place] [facility] [address] [place] [address] Willis Chen, DO [address] [facility] [place] [address] documented as of this encounter Goals GoalPatient Goal TypeAssociated ProblemsRecent ProgressPatient-Stated?Author Reminders Care PlanOB RemindersNoOpen Scheduling, Backgrounddocumented as of this encounter Visit Diagnoses Not on filedocumented in this encounter Additional Health Concerns Active ProblemsNoted DateDiagnosed DateOB Ykunimzbs21/29/2023 documented as of this encounter Care Teams Team MemberRelationshipSpecialtyStart [place] [address] [place] [address] PCP - GeneralFamily Medicine01/14/23documented as of this encounter
--- OUTSIDE RECORDS SUMMARY | 2025-07-18 18:46 | XMS_ITS | Encounter Summary ---
Author Organization [facility] Address [address] [facility] [place] [address] Care Team Providers Care Residential Electrician Name Role Phone Koffi Uriarte MD Primary Care Provider +1- [phone] Encounter Details DateTypeDepartmentCare Team (Latest Contact Info)Alwtefmuayh85/24/2025linisync Result Encounter [facility]S External Department Unsolicited Lisa Chen DO [address] [place], [place] [id number] Social History Tobacco UseTypesPacks/DayYears UsedDateSmoking Tobacco: Never Assessed Estimated Date of XbazplcmMducvwpvUrp94/02/2026Based on last menstrual period of 11/13/2024Sex and Gender InformationValueDate RecordedSex Assigned at BirthFemale 12/21/2022 8:22 PM EDTLegal ZbnRwmrua05/15/2023 11:40 PM EDTGender Identity Ncjlwg0212/21/2022 8:22 PM EDTSexual KhtsbkupwkkFwtkgexl41/05/2023 8:22 PM EDT documented as of this encounter Plan of Treatment DateTypeDepartmentCare Team (Latest Contact Info)Yixmntivwif21/05/2026 3:00 PM ESTAncillary Procedure [facility] [place] [address] [place] [address] 07/23/2025 3:40 PM ESTRoutine [facility] [place] [address] [place] [address] Lisa Chen, DO [address] [facility] [place] [address] documented as of this encounter Goals GoalPatient Goal TypeAssociated ProblemsRecent ProgressPatient-Stated?Author Reminders Care PlanOB RemindersNoOpen Scheduling, Backgrounddocumented as of this encounter Procedures Procedure NamePriorityDate/TimeAssociated DiagnosisCommentsUS OB BPP W NON-XTKCSA7307/11/2025 9:06 AM EST documented in this encounter Results * US OB BPP W NON-STRESS (07/11/2025 9:06 AM EST)Anatomical Region LateralityModalityOtherSpecimen (Source)Anatomical Location / Laterality Collection Method / VolumeCollection TimeReceived Time07/11/2025 9:06 AM EST Narrative 07/11/2025 9:08 AM EST [facility] ?[address] ? [place] [address] ? Ultrasound Report ? Signed ? Patient: PRINCESS HUNTER A ?MR#: [id number] ?? : 1995 ?Acct:[id number] ?? Age/Sex: 29 / F ?ADM Date: 07/10/25 ?? Loc: US ? Attending Dr: Lisa Chen D.O. ? Ordering Physician: Lisa Chen D.O. ?? Date of Service: 07/10/25 ?? Procedure(s): US OB BPP w non-stress ?? Accession Number(s): [id number] ? cc: Lisa Chen D.O.; KOFFI URIARTE M.D. ? [facility] ? [address] ? [place] [address] ? Patient Name: ?? PRINCESS HUNTER ? MRN: [id number] ? date: 1995 ?Sex: F ?? Assigned Patient Location: [facility]BC ?? Current Patient Location: ? Accession/Order Number: [id number] ?? Exam Date: 07/10/2025 ??17:18 ?Report Date: [...] Dictation Location: RADIO-PC-30 ? Electronically authenticated by: [id number] ??Y ?? Date: 07/11/2025 ??09:06 ? Dictated By: ?Cyndi Pisano M.D. ? Signed By: ?12/24/25 0908 ? DD/ 0906 ? TD/TT: ? Facility Manager Histology: Procedure Note Radiology, Radiologist, MD - 07/11/2025 [place] [address] Ultrasound Report Signed Patient: PRINCESS HUNTER AMR#: [id number] : 1995Acct:[id number] Age/Sex: 29 / FADM Date: 07/10/25 Loc: US Attending Dr: Lisa Chen D.O. Ordering Physician: Lisa Chen D.O. Date of Service: 07/10/25 Procedure(s): US OB BPP w non-stress Accession Number(s): [id number] cc: Lisa Chen D.O.; KOFFI URIARTE M.D. The [address] [address] Patient Name: PRINCESS HUNTER MRN: [id number] date: 1995 Sex: F Assigned Patient Location: [facility] Current Patient Location: Accession/Order Number: [id number] Exam Date: 07/10/2025 17:18 Report Date: 07/11/2025 09:06 At the request of: LISA CHEN DO Procedure: US OB BPP w non-stress BIOPHYSICAL PROFILE: CLINICAL INFORMATION: Hypertension, unspecified TYPE I1O COMPARISON: 07/04/2025 There is a single live intrauterine gestation in cephalic presentation.The reported gestational age is 34 weeks 1 day. The heart rate secownav860 beats per minute. FINDINGS: TONE: 1 or [...] Pisano M.D. 07/11/2025 9:06 AM Dictation Location: Ctrip Electronically authenticated by: [id number] Y Date: 509:06 Dictated By: Cyndi Pisano M.D. Signed By:07/11/25907 DD/ 5 TD/TT: Facility Manager Histology: Authorizing ProviderResult TypeResult StatusCorey April DOCLINISYNC IMAGINGFinal Result documented in this encounter Visit Diagnoses Not on filedocumented in this encounter Additional Health Concerns Active ProblemsNoted DateDiagnosed DateOB Pmyzbbtfu69/29/2023 documented as of this encounter Care Teams Team MemberRelationshipSpecialtyStart [place] [address] [place] [address] PCP - GeneralFamily Medicine01/14/23documented as of this encounter
--- OUTSIDE RECORDS SUMMARY | 2025-07-18 18:46 | XMS_ITS | Encounter Summary ---
Author Organization [facility] Address [address] [facility] [place] [address] Care Team Providers Care Dietary Aide Name Role Phone Suzanne Uriarte MD Primary Care Provider +1- [phone] Encounter Details DateTypeDepartmentCare Team (Latest Contact Info)Vfjftozqjbh17/23/2025bstract [facility] [place] [facility] [address] [facility] [place] [address] Willis Chen DO [address] [facility] [address] [place], [place] [address] Social History Tobacco UseTypesPacks/DayYears UsedDateSmoking Tobacco: Never Assessed Estimated Date of NtpznljeOlmotreqLof40/02/2026ased on last menstrual period of 11/13/2024Sex and Gender InformationValueDate RecordedSex Assigned at BirthFemale 12/21/2022 8:22 PM EDTLegal UrxUylebp32/15/2023 11:40 PM EDTGender Identity Wqitxw5812/21/2022 8:22 PM EDTSexual PyyjehuvmnpQgbgkzxi74/05/2023 8:22 PM EDT documented as of this encounter Plan of Treatment DateTypeDepartmentCare Team (Latest Contact Info)Bwfqyzutrjl89/05/2026 3:00 PM ESTAncillary Procedure [facility] [place] [facility] [address] [place] [address] 07/23/2025 3:40 PM ESTRoutine [facility] [place] [facility] [address] [facility] [place] [address] Willis Chen, DO [address] [facility] [place] [address] documented as of this encounter Goals GoalPatient Goal TypeAssociated ProblemsRecent ProgressPatient-Stated?Author Reminders Care PlanOB RemindersNoOpen Scheduling, Backgrounddocumented as of this encounter Visit Diagnoses Not on filedocumented in this encounter Additional Health Concerns Active ProblemsNoted DateDiagnosed DateOB Tlqvbdyyn66/29/2023 documented as of this encounter Care Teams Team MemberRelationshipSpecialtyStart [place] [address] [place] [address] PCP - GeneralFamily Medicine01/14/23documented as of this encounter
--- OUTSIDE RECORDS SUMMARY | 2025-07-18 18:46 | XMS_ITS | Clinical Summary ---
Author Organization [facility] Address [address] [place] [address] Phone Care Team Providers Care Electrical Unit Rebuilder Name Role Phone Suzanne Uriarte MD Primary [...] 1115108/28/2024Discontinued(Cost of medication) Active Problems ProblemNoted DateDiagnosed KgzrDadmzyq34/25/2025 Assessment & Plan (09/14/2024 1:31 PM EST): We talked about healthy habits and sleep hygiene Orders: CBC; Future TSH with reflex to Free T4 if abnormal; Future Vitamin B12; Future Xsryzuq8610/02/2022enign essential kupglkmpzwmv73/17/2023 Assessment & Plan (09/14/2024 1:31 PM EST): [...] Primary Care - PCP - Established; Future Jqdifaa4810/02/2022 Assessment & Plan (09/14/2024 1:31 PM EST): Good control. Follow up with neuro. Continue meds Vitamin B12 pnzvzlnyhl21/17/2023 Assessment & Plan (09/14/2024 1:31 PM EST): Resolved Problems ProblemNoted DateDiagnosed DateResolved DateClass 1 obesity with body mass index (BMI) of 32.0 to 32.9 in adult/1467Vzlfzyeejlyh80/29/2023 09/12/2024bnormal weight gainllergic gsloenfb29/17/2023 05/03/2024acterial xczgkosob45ilateral chronic otitis media hest painhronic vxibbowkrfyk95/17/2023 05/03/2024hronic tuytxegos84/onductive hearing loss, digpnfhgn53Elevated BP without diagnosis of hypertension /Globus rlhbgysda54Hair loss10/02/2022 05/03/20245560Jiqefypw45Tonsil stoneVaginal lwvypwrav50 Encounters DateTypeDepartmentCare MrghKilodhjpumn83/30/2025Scanned Document [facility] [address] [place] [address] Suzanne Uriarte MD 06/29/2025Scanned Document [facility] [address] [address] Suzanne Uriarte MD 06/27/2025Orders Only [address] [place] [address] Nedra Deleon MD Seizure (Multi) (Primary Dx)06/27/2025Scanned Document [address] [place] [phone] Nedra Deleon MD 06/25/2025Documentation [address] [place] [phone] Laila Jin, PRESIDENT EDUCATIONAL INSTITUTION-TELEGRAPH LINEMAN 06/25/2025Orders Only [address] [place] [address] Nedra Deleon MD Unspecified convulsions (Multi)06/25/2025Orders Only [address] [address] ProviderEmili MD 06/20/2025 3:[address]iu [address] [facility] [address] [place] [address] Laila Jin, PRESIDENT EDUCATIONAL INSTITUTION-TELEGRAPH LINEMAN Seizure (Multi) (Primary Dx) Discharge Disposition: Home06/20/20259083Rtkegu52/01/2025Orders Only [address] [address] Mei Soto MA Seizure (Multi)06/13/2025Telephone [address] [place] [address] Mei Soto MA Medical Advice/Petllstc58/27/2025Orders Only [address] [address] Nedra Deleon MD Unspecified convulsions (Multi)04/18/2025Telephone [facility] [address] [place] [address] Kim Fuentes MA 04/17/2025Refill [facility] [address] [place] [address] Suzanne Uriarte MD Benign essential hypertensionfrom Last 3 Months Immunizations ImmunizationAdministration DatesNext MauTWO1304/16/1994,02/12/1994,1993DTaP, Bdpgbsrckbe14/25/1999,01/07/1995Flu vaccine (IIV4), preservative free *Check age/dose*04/22/2023,04/21/2022,04/18/2021,05/06/2017Flu vaccine, quadrivalent, no egg protein, age 6 month or greater (FLUCELVAX)05/09/2019Hepatitis B vaccine, 19 yrs and under (RECOMBIVAX, ENGERIX)06/18/1994,01/08/1994,1993Hepatitis B vaccine, adult *Check Product/Dose*11/01/2023HiB PRP-OMP conjugate vaccine, pediatric (PEDVAXHIB)10/22/1994,04/16/1994,02/12/1994,1993Hib (HbOC) 03/12/1999Influenza, injectable, nwldruxfares20/11/2018MMR vaccine, subcutaneous (MMR II)03/12/1999,10/22/1994Meningococcal ACWY-D (Menactra) 4-valent conjugate jhvsypv6202/25/2007OPV03/12/1999,04/16/1994,02/12/1994,1993PPD Test 11/30/2014,12/15/2013Pneumococcal polysaccharide vaccine, 23-valent, age 2 [...] 0.6 oz pure alcohol)SociallyPHQ-2AnswerDate RecordedPatient Health Questionnaire-2 Lmsia775/5AUDIT-CAnswerDate RecordedQ1: How often do you have a drink containing alcohol?Never06/20/2025Q2: How many drinks containing alcohol do you have on a typical day when you are drinking?Patient does not drink06/20/2025Q3: How often do you have six or more drinks on one occasion?Never06/20/2025 CommentsNoSex and Gender InformationValueDate RecordedSex Assigned at BirthNot on fileLegal YgtHfnwyt19/25/2022 10:33 PM ESTGender IdentityNot on fileSexual OrientationNot on file Last Filed Vital Signs Vital SignReadingTime TakenCommentsBlood Ezruexrj553/9609/12/2024 12:28 PM EST Frzez797709/12/2024 12:28 PM BWLJdnfboqjnje17.3 ??C (97.3 ??F)09/12/2024 12:28 PM ESTRespiratory Mfbl142307/31/2022 10:54 AM ESTOxygen Zzdahvljxu008%12/24/2021 11:32 AM EDTInhaled Oxygen Concentration--Trwxxx18.1 kg (183 lb 4 oz)09/12/2024 12:28 PM JHKJbeeat184.3 cm (5' 9 )09/12/2024 12:28 PM ESTBody Mass Index27.06 09/12/2024 12:28 PM EST Plan of Treatment DateTypeDepartmentCare Team (Latest Contact Info)Rpoglikbynh04/18/2026 2:00 PM EDTOffice Visit [facility] [address] [place] [address] [address] [phone] Laila iJn, PRESIDENT EDUCATIONAL INSTITUTION-TELEGRAPH LINEMAN [address] [place] [address] Health MaintenanceDue DateLast DoneCommentsHIV Ydyjocpha26/16/1994Hepatitis C Rbnrvedby74/16/2012HPV/Zplcff6810/01/2014HPV Vaccines (1 - 3-dose standard series) 2020Yearly Adult Nkcncisa24/27/403076/, 07/31/2022, 07/31/2022, Additional history existsCOVID-19 Vaccine ( season)2025 05/27/2023Influenza Vaccine (#1), 04/21/2022, 04/18/2021, Additional history existsCervical Cancer Tmctrvqld49/20/2028Pap Smear03/07/2028 03/07/2025, 03/10/2023, 03/09/2023, Additional history existsLipid Panel DTaP/Tdap/Td Vaccines (9 - Td or Tdap), 02/16/2018, 03/02/2008, Additional history existsZoster Vaccines (1 of 2) 10/02/2043HIB IelpeacxJhlupqekd83/25/1999, 10/22/1994, 04/16/1994, Additional history existsIPV XetfojtpHstgymuyb55/25/1999, 10/22/1994, 04/16/1994, Additional history existsMMR JmsvbygnYojbvcoyi30/25/1999, 10/22/1994 Meningococcal VaccineAged Out02/25/2007No longer eligible based on patient's age to complete this topicPneumococcal Vaccine: Pediatrics and At-Risk Adult PatientsAged Out01/14/2016No longer eligible based on patient's age to complete this topicHepatitis B CngfgawoSovshjisz62/15/2024, 06/18/1994, 01/08/1994, Additional history existsHepatitis A VaccinesAged OutNo longer eligible based on patient's age to complete this topicRotavirus VaccinesAged OutNo longer eligible based on patient's age to complete this topic Procedures Procedure NamePriorityDate/TimeAssociated DiagnosisCommentsLAMOTRIGINERoutine 06/25/2025 11:10 AM ESTLIPID UEOUYTtkpdjt50/25/2025 1:43 PM EST Well adult health check from Last 3 Months or Most Recently Relevant to Health Maintenance Results * Lamotrigine (06/25/2025 11:10 AM EST)Specimen (Source)Anatomical Location / LateralityCollection Method / VolumeCollection TimeReceived TimeBloodVenous blood specimen / Unknown Narrative Authorizing ProviderResult TypeResult StatusHistorical Provider CARROL BLOOD ORDERABLESFinal Result * Lipid Panel (09/12/2024 1:43 PM EST)ComponentValueRef RangeTest MethodAnalysis TimePerformed AtPathologist SignatureCHOLESTEROL, EJLYO738<200 mg/dLQuest Torrance State HospitalHDL WHVQJWFCZNG79> OR = 50 mg/dLQuest Torrance State HospitalTRIGLYCERIDES103<150 mg/dLQuest Torrance State HospitalOppxoqcdugrp-UuxunojaaxLRT-PWUNCVRRYAV23sg/dL (calc)[facility] HospitalComment: Reference range: <100 Desirable range <100 mg/dL for primary prevention; <70 mg/dL for patients with CHD or diabetic patients with > or = 2 CHD risk factors. LDL-C is now calculated using the Dean calculation, which is a validated novel method providing better accuracy than the Friedewald equation in the estimation of LDL-C. Tres RODRIGEZ et al. STEPHANIE. 2013;310(19): 7695-1504 (http://education.Planitax/faq/KJV853) CHOL/HDLC RATIO3.2<5.0 (calc)[facility] HospitalNON HDL UUSNKYOSBMP101<130 mg/dL (calc)[facility] Verenium [facility] Comment: For patients with diabetes plus 1 major ASCVD risk factor, treating to a non-HDL-C goal of <100 mg/dL (LDL-C of <70 mg/dL) is considered a therapeutic option. Specimen (Source)Anatomical Location / LateralityCollection Method / Volume Collection TimeReceived TimeBloodVenous blood specimen / Pjbkynu4209/12/2024 1:43 PM EST09/12/2024 1:44 PM EST Narrative [facility] - 09/13/2024 6:42 AM EST FASTING:YES FASTING: YES Authorizing ProviderResult TypeResult StatusMonminesh BRANHAM BLOOD ORDERABLESFinal ResultPerforming OrganizationAddressCity/State/ZIP CodePhone Number [facility] [address] [facility], [address] [place] [phone] from Last 3 Months or Most Recently Relevant to Health Maintenance Insurance MemberSubscriberPlan / Payer (Effective 2025-Present)Name:Kavya Guerrero Relation to Subscriber:SelfName:Kavya Guerrero Payer ID:[id number] (NAIC) Type:Not on file Address: [place] [id number] Care Teams Team MemberRelationshipSpecialtyStart [place] [address] [place] [address] PCP - General08/14/20
--- OUTSIDE RECORDS SUMMARY | 2025-07-18 18:46 | XMS_ITS | Encounter Summary ---
Author Organization [facility] Address [address] [facility] [place] [address] Care Team Providers Care Edger Machine Operator Name Role Phone Koffi Uriarte MD Primary Care Provider +1- [phone] Encounter Details DateTypeDepartmentCare Team (Latest Contact Info)Hpokrmkfroa50/18/2025linisync Result Encounter [facility] External Department Unsolicited Lisa Chen DO [address] [place], [place] [address] Social History Tobacco UseTypesPacks/DayYears UsedDateSmoking Tobacco: Never Assessed Estimated Date of QxkzsauzUjisfrtxEqa57/02/2026Based on last menstrual period of 11/13/2024Sex and Gender InformationValueDate RecordedSex Assigned at BirthFemale 12/21/2022 8:22 PM EDTLegal WhkVofpnc72/15/2023 11:40 PM EDTGender Identity Excxbu9812/21/2022 8:22 PM EDTSexual ItrqwihziojZvjbbppg89/05/2023 8:22 PM EDT documented as of this encounter Plan of Treatment DateTypeDepartmentCare Team (Latest Contact Info)Tkislqpabtb40/05/2026 3:00 PM ESTAncillary Procedure [facility] [place] [address] [place] [address] 07/23/2025 3:40 PM ESTRoutine [facility] [place] [address] [place] [address] Lisa Chen, DO [address] [facility] [place] [address] documented as of this encounter Goals GoalPatient Goal TypeAssociated ProblemsRecent ProgressPatient-Stated?Author Reminders Care PlanOB RemindersNoOpen Scheduling, Backgrounddocumented as of this encounter Procedures Procedure NamePriorityDate/TimeAssociated DiagnosisCommentsUS OB BPP W NON-WADYYM4607/05/2025 10:00 AM EST documented in this encounter Results * US OB BPP W NON-STRESS (07/05/2025 10:00 AM EST)Anatomical Region LateralityModalityOtherSpecimen (Source)Anatomical Location / Laterality Collection Method / VolumeCollection TimeReceived Time07/05/2025 10:00 AM EST Narrative 07/05/2025 10:02 AM EST [facility] ?[address] ? [place] [address] ? Ultrasound Report ? Signed ? Patient: PRINCESS HUNTER A ?MR#: [id number] ?? : 1995 ?Acct:[id number] ?? Age/Sex: 29 / F ?ADM Date: 07/04/25 ?? Loc: US ? Attending Dr: Lisa Chen D.O. ? Ordering Physician: Lisa Chen D.O. ?? Date of Service: 07/04/25 ?? Procedure(s): US OB BPP w non-stress ?? Accession Number(s): [id number] ? cc: Lisa Chen D.O.; KOFFI URIARTE M.D. ? [facility] ? [address] ? [place] [address] ? Patient Name: ?? PRINCESS HUNTER ? MRN: [id number] ? date: 1995 ?Sex: F ?? Assigned Patient Location: [facility]BC ?? Current Patient Location: US ?? Accession/Order Number: [id number] ?? Exam Date: 07/04/2025 ??18:49 ?Report Date: [...] Dictation Location: RADIO-PC-30 ? Electronically authenticated by: [id number] ??Y ?? Date: 07/05/2025 ??10:00 ? Dictated By: ?Cyndi Pisano M.D. ? Signed By: ?12/18/25 1002 ? DD/ 1000 ? TD/TT: ? Mining Helper: Procedure Note Radiology, Radiologist, - 07/05/2025 [place] [address] Ultrasound Report Signed Patient: PRINCESS HUNTER AMR#: [id number] : 1995Acct:[id number] Age/Sex: 29 / FADM Date: 07/04/25 Loc: US Attending Dr: Lisa Chen D.O. Ordering Physician: Lisa Chen D.O. Date of Service: 07/04/25 Procedure(s): US OB BPP w non-stress Accession Number(s): [id number] cc: Lisa Chen D.O.; KOFFI URIARTE M.D. The [address] [address] Patient Name: PRINCESS HUNTER MRN: [id number] date: 1995 Sex: F Assigned Patient Location: [facility] Current Patient Location: US Accession/Order Number: [id number] Exam Date: 07/04/2025 18:49 Report Date: 07/05/2025 [...] Pisano M.D. 07/05/2025 10:00 AM Dictation Location: [facility] PITTSBURGHGenymobileYAKIMA VALLEY MEMORIAL HOSPITALBiscoot Electronically authenticated by: [id number] Y Date: 0:00 Dictated By: Cyndi Pisano M.D. Signed By:07/05/25 1002 DD/ 1000 TD/TT: Mining Helper: Authorizing ProviderResult TypeResult StatusCorechristina Chen DOCLINISYNC IMAGINGFinal Result documented in this encounter Visit Diagnoses Not on filedocumented in this encounter Additional Health Concerns Active ProblemsNoted DateDiagnosed DateOB Fzdrbesdp46/29/2023 documented as of this encounter Care Teams Team MemberRelationshipSpecialtyStart [place] [address] [place] [address] PCP - GeneralFamily Medicine01/14/23documented as of this encounter
--- OUTSIDE RECORDS SUMMARY | 2025-07-18 18:46 | XMS_ITS | Encounter Summary ---
Author Organization [facility] Address [address] [place] [address] Phone Care Team Providers Care Personal Injury Legal Assistant Name Role Phone Suzanne Uriarte MD Primary Care Provider + Encounter Details DateTypeDepartmentCare Team (Latest Contact Info)Mmpwbqyimun76/30/2025Scanned Document [facility] [address] [place] [address] [place] [address] [place] [address] Social History Tobacco UseTypesPacks/DayYears UsedDateSmoking Tobacco: NeverPassive Smoke Exposure: NeverSmokeless Tobacco: CurrentAlcohol UseStandard Drinks/WeekComments Not Currently0 (1 standard drink = 0.6 oz pure alcohol)SociallyPHQ-2AnswerDate RecordedPatient Health Questionnaire-2 Sepxt16808/21/2024UDIT-CAnswerDate RecordedQ1: How often do you have a [...] Plan of Treatment DateTypeDepartmentCare Team (Latest Contact Info)Ivrcqsximbb00/18/2026 2:00 PM EDTOffice Visit [address] [place] [address] Laila Jin, [employer] MANAGER-RECRUITMENT SPECIALIST [address] [place] [address] documented as of this encounter Visit Diagnoses Not on filedocumented in this encounter Additional Health Concerns AssessmentNoted TimeA fall risk assessment has been completed for the patient 06/20/2025 2:54 PM ESTdocumented as of this encounter Care Teams Team MemberRelationshipSpecialtyStart [place] [address] [address] PCP - General08/14/20documented as of this encounter
--- OUTSIDE RECORDS SUMMARY | 2025-07-18 18:46 | XMS_ITS | Encounter Summary ---
Author Organization [facility] Address [address] [facility] [place] [address] Care Team Providers Care Senior Systems Software Engineer Name Role Phone Suzanne Uriarte MD Primary Care Provider +1- [phone] Encounter Details DateTypeDepartmentCare Team (Latest Contact Info)Ifuxtcibqaj49/22/2025amboo flowsheet [facility] [place] L[facility]TON [address] [place] [address] Roula Grullon PA [address] [facility] [address] [place], [place] [address] Social History Tobacco UseTypesPacks/DayYears UsedDateSmoking Tobacco: Never Assessed Estimated Date of QcwmjdytVjdvqtakLmu30/02/2026ased on last menstrual period of 11/13/2024Sex and Gender InformationValueDate RecordedSex Assigned at BirthFemale 12/21/2022 8:22 PM EDTLegal WjpRwowvx48/15/2023 11:40 PM EDTGender Identity Yvhhbz3912/21/2022 8:22 PM EDTSexual YgsjuqdybmrPvwurfeb98/05/2023 8:22 PM EDT documented as of this encounter Plan of Treatment DateTypeDepartmentCare Team (Latest Contact Info)Brywcuobuat31/05/2026 3:00 PM ESTAncillary Procedure [facility] [place] [facility] [address] [place] [address] 07/23/2025 3:40 PM ESTRoutine [facility] [place] [facility] [address] [place] [address] Willis Chen, DO [address] [facility] [place] [address] documented as of this encounter Goals GoalPatient Goal TypeAssociated ProblemsRecent ProgressPatient-Stated?Author Reminders Care PlanOB RemindersNoOpen Scheduling, Backgrounddocumented as of this encounter Visit Diagnoses Not on filedocumented in this encounter Additional Health Concerns Active ProblemsNoted DateDiagnosed DateOB Tylodsvos67/29/2023 documented as of this encounter Care Teams Team MemberRelationshipSpecialtyStart [place] [address] [place] [address] PCP - GeneralFamily Medicine01/14/23documented as of this encounter
--- OUTSIDE RECORDS SUMMARY | 2025-07-18 18:47 | XMS_ITS | CCD ---
Author Organization [facility] Care Team Providers Care Paediatrician Name Role Phone Uriarte, Koffi A Unavailable [...] Unavailabl e [place] DWYER Attending Unavailable URIARTE, KFOFI A Primary Care Unavailabl e KAVITA SWEET [...] Primary Care Provider Koffi Uriarte MD Unavailable [phone] Willis Chen Attending Unavailable Willis Chen Admitting [...] [No Known Medication Allergies]Propensity to adverse reactions (disorder)[facility] Repository Medications Current Medications MedicationDrug Class(es)DatesSig [...] Day] (9 sources)Progestin, Estrogen, Progestin-containing Intrauterine DeviceStart: 55-29-0111Mskknmlh 100 mcg-20 mcg oral tablet 1 tab(s), Oral, Daily, 3 EA, Refill(s) [facility] #0220 Start Date: 06/05/19 Status: OrderedStart: 53-21-9931ijmx 1 tablet by mouth once dailyOrsythia 0.1-20 MG-MCG Oral Tablet TAKE 1 TABLET DAILY. Quantity: 1 Refills: 3 Koffi Uriarte MD Start : 12-Oct-2015 Active 28 Tablet Packtake 0.1-20 tablets by mouth once levonorgestrel-ethinyl estradiol (LUTERA) 0.1-20 MG-MCG per tablet Take 1 tablet by mouth daily. 0 Activelabetalol hydrochloride 200 mg oral tablet (20 sources)beta-Adrenergic BlockerStart: 56-30-3535mtuf 1 tablet by mouth in the morninglabetalol (Normodyne) 200 MG tablet Indications: Secondary hypertension Take 1 tablet (200 mg) by mouth in the morning and 1 tablet (200 mg) before bedtime. 60 tablet 3 04/18/2025 ActiveStart: 09-12-2024 End: 18-79-9045vtec 1 tablet by mouth twice dailylabetalol (Normodyne) 300 mg tablet Indications: Benign essential hypertension Take 1 tablet (300 mg) by mouth 2 times a day. 60 tablet 5 09/12/2024 03/11/2025 ActiveStart: 11-09-2023 End: 18-57-4227oprs 1 tablet by mouth twice dailylabetalol (Normodyne) 200 MG tablet Indications: Secondary hypertension TAKE 1 TABLET BY MOUTH TWICE A DAY 60 tablet 3 09/06/2024 ActivelamoTRIgine 100 mg oral tablet (20 sources)Mood Stabilizer, Anti-epileptic AgentStart: 82-81-7601hfem 100 mg by mouth once dailyLamotrigine Active 100 MG PO Daily November 09, 2023 12:00am Start: 43-10-4614aqfo 1 tablet by mouth twice dailylamoTRIgine (LaMICtal) 100 mg tablet Indications: Unspecified convulsions (Multi) TAKE 1 TABLET BY MOUTH TWICE A DAY 60 tablet 11 01/03/2024 ActivelamoTRIgine (LAMICTAL) 25 mg tablet levothyroxine sodium 0.025 mg oral tablet (1 source)l-ThyroxineStart: 12-07-2022 End: 99-36-5527kvqi 1 tablet by mouth once daily before mealtimelevothyroxine (Synthroid, Levoxyl) 25 mcg tablet Take 1 tablet (25 mcg) by mouth once daily in the morning. Take before meals. 0 12/07/2022 04/30/2023 Discontinued (Therapy completed)lisinopril 10 mg oral tablet (20 sources)Angiotensin Converting Enzyme InhibitorStart: 05-13-2023 End: 65-80-5444vjgt 1 tablet by mouth once dailylisinopril 10 mg tablet Indications: Benign essential hypertension Take 1 tablet (10 mg) by mouth once daily. 90 tablet 3 05/13/2023 05/03/2024 Discontinued (Med List Cleanup)Start: 03-09-2023 End: 00-94-1144pnwj 1 tablet by mouth once dailylisinopril 10 mg tablet Indications: Primary hypertension TAKE 1 TABLET BY MOUTH EVERY DAY 30 tablet 6 03/09/2023 04/30/2023 Discontinued (Entered in Error)Start: 89-95-6766osay 1 tablet by mouth once dailyLisinopril 10 MG Oral Tablet TAKE 1 TABLET DAILY. Quantity: 90 Refills: 3 Ordered: 02-Jan-2022 Koffi Uriarte MD Start : 14-Oct-2020 ActiveStart: 35-27-7162uwlvwkeorp (ZESTRIL, PRINIVIL) 10 mg tablet Take by mouth q 24 HR. 0 10/14/2020 ActiveComment on above:Take by mouth q 24 HR.24 hr metFORMIN hydrochloride 500 mg extended release oral tablet (1 source)BiguanideStart: 11-16-2022 End: 20-73-3119knih 1 tablet by mouth once daily at mealtimemetFORMIN XR 500 mg 24 hr tablet Take 1 tablet (500 mg) by mouth once daily in the evening. Take wit h meals. 0 11/16/2022 04/30/2023 Discontinued (Therapy completed)naproxen 500 mg oral tablet (1 source)Nonsteroidal Anti-inflammatory DrugStart: 44-75-7623amgx 1 tablet by mouth twice dailyNaprosyn 500 mg Tab 500 mg = 1 tab(s), Oral, BID, # 120 tab(s), Refills(s) 0, [facility]: [id number] Start Date: 06/05/19 Status: Ordered MV-Min-Fe Fum-FA-DHA ( 1 PO) (20 sources) MV-Min-Fe Fum-FA-DHA ( 1 PO) Take by mouth Active promethazine hydrochloride 12.5 mg oral tablet (20 sources)PhenothiazineStart: 83-83-9328brmx 2 tablets by mouth every six hours [...] for nausea. 30 tablet 1 02/02/2025 ActiveStart: 31-74-5030lprm 2 tablets by mouth every six hours [...] for nausea. 30 tablet 2 02/01/2025 ActiveStart: 96-73-8791ngun 2 tablets by mouth every six hours [...] 0.9 % injection 3 mL (1 source)Start: 26-51-7304nicrcd chloride flush 0.9 % injection 3 mL Completed/Discontinued Medications MedicationDrug Class(es)DatesSig (Normalized)Sig (Original)busPIRone hydrochloride 10 mg oral tablet (3 sources)Start: 66-08-8674qxdp 1 tablet by mouth three times daily as needed busPIRone HCl - 10 MG Oral Tablet TAKE 1 TABLET 3 times daily PRN Quantity: 60 Refills: 1 Koffi Uriarte MD Start : 28-May-2020 Activegadoteridol (PROHANCE) injection 15 mL (1 source)Start: 05-09-2020 End: 48-84-0714cigtgyceqqt (PROHANCE) injection 15 mLmelatonin 10 mg oral tablet (8 sources)Start: 08-73-0182tooy 1 tablet by mouth at bedtimeMelatonin 10 MG Oral Tablet TAKE 1 TABLET Bedtime Quantity: 30 Refills: 3 Ordered: 25-Apr-2020 Doe Andrade DO Start : 25-Apr-2020 Active Patient requesting compounded melatoninmetroNIDAZOLE 500 mg oral tablet (10 sources)Nitroimidazole AntimicrobialStart: 09-09-2021 End: 23-46-3012cfob 1 tablet by mouth twice dailymetroNIDAZOLE (FLAGYL) 500 mg tablet Indications: Acute vaginitis Take 1 tablet by mouth twice daily. for vaginosis. Do not drink alcohol while taking this medication 14 tablet 0 02/03/2022 ActiveStart: 79-68-6650wdrafQFFTGJQL 0.75 % Vaginal Gel INSERT 1 APPLICATORFUL INTRAVAGINALLY AT BEDTIME NIGHTLY. Quantity: 1 Refills: 0 Ordered: 20-May-2021 Koffi Uriarte MD Start : 20-May-2021 ActiveStart: 06-09-2019 End: 01-68-4475KoygkHdg-Vaginal 0.75% gel with applicator 1 bruce, Vaginal, BID, 70 gram, Refill(s) 0, [facility] Start Date: 06/09/19 Stop Date: 06/14/19 Status: OrderedComment on above:Take 1 tablet by mouth twice daily. for vaginosis. Do not drink alcohol while taking this medicationondansetron 4 mg disintegrating oral tablet (11 sources)Serotonin-3 Receptor AntagonistStart: 01-12-2025 End: 01-99-2962kgoy 1 tablet by mouth every six hours for nauseaondansetron ODT (Zofran-ODT) 4 MG disintegrating tablet Indications: Nausea and vomiting in ([facility]) Take 1 tablet (4 mg) by mouth every 6 (six) hours if needed for nausea or vomiting 30 tablet 2 01/12/2025 02/11/2025 ExpiredStart: 96-17-7320ywfw 4 mg by mouth every eight hoursOndansetron Hcl Active 4 MG PO Every 8 hours November 09, 2023 12:00amStart: 02-10-2023 End: 49-27-7505jfch 2 tablets by mouth twice daily as needed for nausea ondansetron (Zofran) 4 mg tablet Take 2 tablets (8 mg) by mouth 2 times a day as needed for nausea.02/10/2023 05/03/2024 Discontinued (Med List Cleanup)Orsythia 0.1-20 MG-MCG Oral Tablet (3 sources)Start: 33-24-6506tjjl 1 tablet by mouth once dailyOrsythia 0.1-20 MG- MCG Oral Tablet TAKE 1 TABLET DAILY. Quantity: 1 Refills: 3 Ordered: 25-May-2019 Koffi Uriarte MD Start : 12-Oct-2015 Activesertraline 50 mg oral tablet (4 sources)Serotonin Reuptake InhibitorStart: 53-87-3509yqfr 1 tablet by mouth once dailySertraline HCl - 50 MG Oral Tablet TAKE 1 TABLET DAILY. Quantity: 30 Refills: 11 Ordered: 14-Oct-2020 Koffi Uriarte MD Start : 28-May-2020 Twwowd31 ml sodium chloride 9 mg/ml injection (1 source)Start: 04-18-2020 End: 04-19-20200.9 % sodium chloride bolus Problems Active Problems Problem ClassificationProblemDateDocumented DateEpisodic/ChronicAnxiety disorders (20 sources)Anxiety; Translations: [Anxiety state, unspecified]Onset: 10-02-2022 75-12-7888NnwbwujRxqwwwendpquo and procreative management (7 sources)Contraception ; Translations: [Encounter for surveillance of contraceptives, unspecified]Onset: 980673-23-4629NszomfejBmxdtsfv; convulsions (1 source)Idiopathic generalized epilepsy; Translations: [Nonintractable generalized idiopathic epilepsy without status epilepticus (HCC)]Chronic Essential hypertension (20 sources)Benign essential hypertension; Translations: [Benign essential hypertension]Onset: 10-02-2022 Resolved: 626987-75-6277YlfdikwWrndaojvgh during ; abruptio placenta; placenta previa (2 sources)Antepartum hemorrhage; Translations: [Hemorrhage in early , unspecified]Onset: 20-03-0901KdpaqxcwKqtyiflbkcwny and screening for infectious disease (4 sources)Encounter for screening for infections with a predominantly sexual mode of transmission; Translations: [Exposure to sexually transmissible disorder]Onset: 517739-56-7633PlzywtaiThpsasaih disorders (3 sources)Missed period; Translations: [Irregular menstruation, unspecified] 59-08-7054UkbaozhDmiclh and vomiting (2 sources)Nausea and vomiting; Translations: [Nausea with vomiting, unspecified]97-28-9313XgksrvzpTyvytfvyree deficiencies (3 sources)Vitamin D deficiency; Translations: [Vitamin D deficiency, unspecified]Onset: 836675-39-8248YpekhswHvdmc complications of (1 source)Vomiting of , unspecified; Translations: [Unspecified vomiting of , unspecified as to episode of care or not applicable] 70-35-7791AjcbrfayAxpao female genital disorders (18 sources)Vaginal discharge; Translations: [Leukorrhea, not specified as infective]Onset: 10-02-2022 Resolved: 836639-22-9222OugwwnhrQgmbn nutritional; endocrine; and metabolic disorders (3 sources)Obese class I; Translations: [Obesity, unspecified]Onset: 07-04-2021 71-23-6252WrlfdbdTfias and delivery including normal (12 sources); Translations: [Encounter for supervision of normal , unspecified, unspecified trimester]61-71-2443IuetloplMgrmt screening for suspected conditions (not mental disorders or infectious disease) (4 sources)Patient encounter status; Translations: [Encounter for other specified screening]84-44-3765TalkaslaBmcsn upper respiratory infections (20 sources)Chronic sinusitis; Translations: [Chronic pansinusitis]Onset: 10-02-2022 Resolved: 171969-62-0920UpsmlvgQlwtsh media and related conditions (5 sources)Chronic otitis media; Translations: [Bilateral chronic otitis media] ChronicPolyhydramnios and other problems of amniotic cavity (2 sources)Subchorionic hematoma; Translations: [Other specified disorders of amniotic fluid and membranes, second trimester, not applicable or unspecified] 97-59-3854GbjlhmhxMqtcfpqy codes; unclassified (2 sources)Gestation period, 11 weeks; Translations: [11 weeks gestation of ]65-74-0614SekpvzipWfdprsqh codes; unclassified (2 sources)Gestation period, 12 weeks; Translations: [12 weeks gestation of ]58-56-2804OuknmuebEunlyjfg codes; unclassified (2 sources)Gestation period, 16 weeks; Translations: [16 weeks gestation of ]84-61-8082OttiufbjLskgsxed codes; unclassified (2 sources)Gestation period, 20 weeks; Translations: [20 weeks gestation of ]33-70-2018XaxpyumxJsoaaoxc codes; unclassified (2 sources)Gestation period, 24 weeks; Translations: [24 weeks gestation of ]77-76-7930YxbcmilnKhtsiiazqyfj (1 source)Unknown / UNK(Unknown)Onset: 45-40-0222Mrbabfigkekc (3 sources)APPOINTMENT CANCELLEDOnset: 184320-56-7790Giyobgbtwulu (20 sources)OB RemindersOnset: 030631-44-2612 Past or Other Problems Problem ClassificationProblemDateDocumented DateEpisodic/ChronicAcute and chronic tonsillitis (9 sources)Amygdalolith; 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 Calderon. lamotrigine;Inflammatory diseases of female pelvic organs (18 sources)Bacterial vaginosis; Translations: [Vaginitis and vulvovaginitis, unspecified]Onset: 07-04-2021 Resolved: 09-79-4713WuqhffteNrncart and fatigue (4 sources)Fatigue; Translations: [Other fatigue]Onset: EpisodicMalposition; malpresentation (20 sources)Breech presentation; Translations: [Maternal care for breech presentation, not applicable or unspecified]Onset: 872224-70-2159Sdbharcs Nonspecific chest pain (20 sources)Chest pain; Translations: [Chest pain, unspecified]Onset: 10-02-2022 Resolved: 566016-57-0620OuulfvimKbekcqqxkqt deficiencies (20 sources)Cobalamin deficiency; Translations: [Other B-complex deficiencies] Onset: 796094-56-6236WfnaigxeEzgsv circulatory disease (20 sources)Feeling of lump in throat; Translations: [Gastrointestinal malfunction arising from mental factors]Onset: 10-02-2022 Resolved: 742875-43-7146HythqfneXdfnf circulatory disease (20 sources)Elevated blood-pressure reading without diagnosis of hypertension; Translations: [Elevated blood pressure reading without diagnosis of hypertension]Onset: 10-02-2022 Resolved: 652891-12-4421YqeybrroYqutq ear and sense organ disorders (20 sources)Conductive hearing loss, bilateral; Translations: [Conductive hearing loss, bilateral]Onset: 10-02-2022 Resolved: 724202-60-6674SckwotyKmktm nutritional; endocrine; and metabolic disorders (9 sources)Obesity; Translations: [Obesity, unspecified]Onset: 03-28-2023 Resolved: 446008-42-7129TcmislyOermh nutritional; endocrine; and metabolic disorders (19 sources)Abnormal weight gain; Translations: [Abnormal weight gain]Onset: 10-02-2022 Resolved: 746410-91-0892YfslyxtxXflkx skin disorders (20 sources)Loss of hair; Translations: [Alopecia, unspecified]Onset: 10-02-2022 Resolved: 738210-23-4059AoszntjcBvrmd upper respiratory disease (20 sources)Allergic rhinitis; Translations: [Allergic rhinitis, cause unspecified]Onset: 10-02-2022 Resolved: 477219-23-5500UafcghuEvzmnm media and related conditions (19 sources)Chronic otitis media; Translations: [Unspecified otitis media]Onset: 10-02-2022 Resolved: 935875-55-5688CjwepbeoWcznnkfx codes; unclassified (20 sources)Insomnia; Translations: [Insomnia, unspecified]Onset: 10-02-2022 Resolved: 805829-34-3726HvyngvjjQfzzigthlvub (1 source)R07.9 52705/8Onset: 01-74-8782Sluurgfntcna (5 sources)Patient encounter status; Translations: [Encounter for audiology evaluation]Unclassified (2 sources)Onset: 304193-42-9992GRSILUJ: Highlighted row has not occurred! Residual codes; unclassified (17 sources)DiseaseEpisodic Results Test NameValueInterpretationReference RangeFacilityALL CBC WITH AUTO DIFFon 18-73-8844OZFSFAPYW ABSOLUTE AUTO0.0NOMS HealthcareBasophils/100 WBC (Bld)0.1 % Low0.2 - 2.0 %NOMS HealthcareEosinophils/100 WBC (Bld)0.1 %Low0.9 - 7.0 %NOMS HealthcareErythrocyte distribution width (RBC) [Ratio]12.3 %11.0 - 15.0 %NOMS HealthcareHematocrit (Bld) [Volume fraction]30.2 %Low36.0 - 48.0 %NOMS HealthcareHemoglobin (Bld) [Mass/Vol]10.2 g/dLLow12.0 - 16.0 g/dLNONC Healthcare IMMATURE GRANULOCYTES ABS AUTO0.07HighNOMS HealthcareImmature granulocytes/100 WBC (Bld)0.7 %High0.0 - 0.5 %[facility]S HealthcareInterpretation and review of laboratory resultsAbnormalNOMS HealthcareLYMPHOCYTES ABSOLUTE AUTO2.2NOMS HealthcareLymphocytes/100 WBC (Bld)22.1 %20.5 - 60.0 %NOMS HealthcareMCH (RBC) [Entitic mass]31.8 pg26.7 - 34.0 pgThe Rehabilitation InstituteMCHC (RBC) [Mass/Vol]33.8 g/dL 29.9 - 35.2 g/dLThe Rehabilitation InstituteMCV (RBC) [Entitic vol]94.1 fL81.0 - 99.0 fLNONC HealthcareMONOCYTES ABSOLUTE AUTO0.6NONC HealthcareMonocytes/100 WBC (Bld)5.9 % 1.7 - 12.0 %NOM HealthcareNEUTROPHILS ABSOLUTE AUTO6.9HighThe Rehabilitation Institute Neutrophils/100 WBC (Bld)71.1 %43.0 - 75.0 %NOM HealthcarePlatelet mean volume (Bld) [Entitic vol]8.9 fLLow9.5 - 13.5 fLNONC HealthcareTBH EO #0.0NONC HealthcareTBH HNI549VFOJ HealthcareTB RBC3.21LowNONC HealthcareTBH WBC9.8NONC HealthcareCLINISYNCNOMS HealthcareUrinalysis macro (dipstick) panel (U)on 13-03-6022Egvzytvlt, UANegativeNegative - 4(70) +++ mg/dLNONC HealthcareBlood, UANegativeNegative - 50 Jae/mcLNONC HealthcareClarity, UAClearNONC Healthcare Color, UAYellowNONC HealthcareGlucose, UANegativeNegative - 2000(110) ++++ mg/dL [facility] HealthcareInterpretation and review of laboratory resultsAbnormalNONC HealthcareKetones, UANegativeNegative - 160(16) ++++ mg/dLUTAH VALLEY [facility]OSPITAL Healthcare Leukocytes, UA2+Negative - 500+++ Marsha/mcLNONC HealthcareNitrite, UANegative Negative - PositiveNOMS HealthcarepH, UA6.05 - 9NONC HealthcareProtein, UA NegativeNegative - 2000(20) ++++ mg/dLNONC HealthcareSpec Grav, UA1.0201 - 1.03 NOMS HealthcareUrobilinogen, UA1.00.2 - 12 mg/dLNONC HealthcareNONC Healthcare AFP, SERUM, OPEN SPINA BIFIDAon 59-21-4379PDR MOM0.82.[facility] HealthcareAFP VALUE 45.0 ng/mL.[facility] HealthcareCOMMENT:Comment.[facility] HealthcareComment on above:Jeny Avila, Ph.D., [facility] Director References: Available Upon Request. Multiples Of Median Cutoffs For AFP Elevations Payan 2.5 Black 2.8 IDD 2.0 Twins 4.5 Abbreviation Definitions IDD - Insulin Dep Diabetes OSBR - Open Spina Bifida Risk For further inquiries contact [facility] at [phone]. This test was developed and its performance characteristics determined by [facility]. It has not been cleared or approved by the Food and Drug Administration. Performed at: [facility] [address] [place], [place] [id number] [employer]: Abdulaziz Aquino [facility], Phone: [phone] GEST. AGE ON COLLECTION DATE20.7. weeksNONC HealthcareGESTAT. AGE BASED ONLMP. NOMS HealthcareComment on above:Recalculations are not recommended when gestational dating by LMP and ultrasound are within 10 days. INSULIN DEP DIABETESNo.N[facility] HealthcareINTERPRETATIONComment.[facility] Healthcare Comment on above:Interpretation: Screen Negative [...] Customer Services to discuss available options. The [employer] recommends amniocentesis be offered to women age 35 and older. MATERNAL AGE AT EDD31.8. yrNONC HealthcareMULTIPLE GESTATIONNo.[facility] OSBR RISK 1 RE02892.NOMS HealthcareRACECaucasian.NOMS HealthcareRESULTSReport. NOMS HealthcareTEST RESULTS:Negative.NOMS OjnhxlcqrxWHDTAV807. lbsNONC HealthcarePREGNANCY N N LMP 28192011 2 16 N 1 Y 183 N N N N N White/ CLINISYNCNONC HealthcareNo Panel InformationOrdered By: Radiologist Radiology on 10-17-3413RMVG Healthcare Work Phone: No Panel Informationon 19-30-4966Jlkudrkaw Study observation (narrative)NOMS HealthcareUS OB ANATOMYon 81-81-0546A[address] [address] Ultrasound Report Signed Patient: PRINCESS GUERRERO MR#: [id number] : 1995 Acct:[id number] Age/Sex: 29 / F ADM Date: 04/03/25 Loc: US Attending Dr: Willis Chen D.O. Ordering Physician: Willis Chen D.O. Date of Service: 04/03/25 Procedure(s): US OB anatomy Accession Number(s): [id number] cc: Willis Chen D.O.; KOFFI URIARTE M.D. [place] [address] Patient Name: PRINCESS GUERRERO MRN: [id number] date: 1995 Sex: F Assigned Patient Location: US Current Patient Location: Accession/Order Number: [id number] Exam Date: 04/03/2025 18:53 Report Date: 04/04/2025 [...] all 4 extremities were surveyed by the director alliance marketing and no abnormalities were reported. The stomach, [...] Pisano M.D. 04/04/2025 9:12 AM Dictation Location: [place] [address] Electronically authenticated by: [id number] Y Date: 04/04/2025 09:12 Dictated By: Cyndi Pisano M.D. Signed By: 04/04/25913 DD/ 1 TD/TT: Collection Specialist:TBHRadiology, Radiologist, - 04/04/2025 [place] [address] Ultrasound Report Signed Patient: PRINCESS GUERRERO MR#: [id number] : 1995 Acct:[id number] Age/Sex: 29 / F ADM Date: 04/03/25 Loc: US Attending Dr: Willis Chen D.O. Ordering Physician: Willis Chen D.O. Date of Service: 04/03/25 Procedure(s): US OB anatomy Accession Number(s): [id number] cc: Willis Chen D.O.; KOFFI URIARTE M.D. The [address] [id number] Patient Name: PRINCESS GUERRERO MRN: [facility]:[id number] date: 1995 Sex: F Assigned Patient Location: US Current Patient Location: Accession/Order Number: [id number] Exam Date: 04/03/2025 18:53 Report Date: 04/04/2025 [...] all 4 extremities were surveyed by the director alliance marketing and no abnormalities were reported. The stomach, [...] Pisano M.D. 04/04/2025 9:12 AM Dictation Location: [place] [address] Electronically authenticated by: [id number] Y Date: 04/04/2025 09:12 Dictated By: Cyndi Pisano M.D. Signed By: 04/04/25913 DD/ 1 TD/TT: Collection Specialist: JOSY Lopez OB CERVICAL LENGTHon 29-54-6056[place] [address] Ultrasound Report Signed Patient: PRINCESS GUERRERO MR#: [id number] : 1995 Acct:[id number] Age/Sex: 29 / F ADM Date: 04/03/25 Loc: US Attending Dr: Willis Chen D.O. Ordering Physician: Willis Chen D.O. Date of Service: 04/03/25 Procedure(s): US OB cervical length Accession Number(s): [id number] cc: Willis Chen D.O.; KOFFI URIARTE M.D. The [place] [address] Patient Name: PRINCESS GUERRERO MRN: [facility]:[id number] date: 1995 Sex: F Assigned Patient Location: Current Patient Location: Accession/Order Number: [id number] Exam Date: 04/03/2025 18:53 Report Date: 04/04/2025 [...] all 4 extremities were surveyed by the director alliance marketing and no abnormalities were reported. The stomach, [...] Pisano M.D. 04/04/2025 9:12 AM Dictation Location[facility] Electronically authenticated by: [id number] Y Date: 04/04/2025 09:12 Dictated By: Cyndi Pisano M.D. Signed By: 04/04/2514 DD/ 1 TD/TT: Collection Specialist:TBHRadiology, Radiologist, - 04/04/2025 [place] [address] Ultrasound Report Signed Patient: PRINCESS GUERRERO MR#: [id number] : 1995 Acct:[id number] Age/Sex: 29 / F ADM Date: 04/03/25 Loc: US Attending Dr: Willis Chen D.O. Ordering Physician: Willis Chen D.O. Date of Service: 04/03/25 Procedure(s): US OB cervical length Accession Number(s): [id number] cc: Willis Chen D.O.; KOFFI URIARTE M.D. The [place] [id number] Patient Name: PRINCESS GUERRERO MRN: [id number] date: 1995 Sex: F Assigned Patient Location: US Current Patient Location: Accession/Order Number: [id number] Exam Date: 04/03/2025 18:53 Report Date: 04/04/2025 [...] all 4 extremities were surveyed by the director alliance marketing and no abnormalities were reported. The stomach, [...] Pisano M.D. 04/04/2025 9:12 AM Dictation Location: [place] Electronically authenticated by: [id number] Y Date: 04/04/2025 09:12 Dictated By: Cyndi Pisano M.D. Signed By: 04/04/25913 DD/ 1 TD/TT: Collection Specialist: JOSY EscobarUrinalysis macro (dipstick) panel (U)on 28-09-9267Wzujjfqam, UA NegativeNegative - 4(70) +++ mg/dLNOMS HealthcareBlood, [...] mg/dLNOMS HealthcareNOMS HealthcareUS OB LIMITED 1+ FETUSESon 88-31-5449IA OB LIMITED 1+ FETUSESFINDINGS: Cephalic presentation. Posterior placenta. heart rate 156. No evidence of significant amniotic band or subchronic hemorrhage. IMPRESSION: Normal viable fetus, no gestational sac abnormality TRANSCRIBED BY: ELECTRONICALLY SIGNED BY: Shelia ArellanoNot AvailableIGP,APTIMA HPV,AGE GDLNon 87-10-6800RSM GDLN ACOG TESTINGNote.[facility] HealthcareComment on above:TESTS RESULT FLAG UNITS REF RANGE LAB Clinician Provided Cytology Information Source.............Endocervix No. of containers..01 ThinPrep Vial Age Algo ACOG Evie... FLAG LEGEND: L-Low Normal,H-High Normal,LL-Alert Low,HH-Alert High <-Panic Low,>-Panic High,A-Abnormal,AA-Critical Abnormal Performed at: 01 =[address] [address] Karena Lester MD, HPV APTIMANegativeNegativeNOMS HealthcareComment on above:This nucleic acid amplification test detects fourteen high- risk HPV types (16,18,31,33,35,39,45,51,52,56,58,59,66,68) without differentiation. Performed at: =[address] [id number] [employer]: Karena Lester MD, Phone: [phone] Performed at: [address] [id number] [employer]: Karena Lester MD, Phone: [phone] IGP, APTIMA HPV, RFX 16/18,45Note.NOMS HealthcareComment on above:TESTS RESULT FLAG UNITS REF RANGE LAB DIAGNOSIS: 02 NEGATIVE FOR INTRAEPITHELIAL LESION OR MALIGNANCY. Specimen adequacy: 02 Satisfactory for evaluation. No endocervical component is identified. Performed by: 02 Calvin [place] Endocrinology Nurse ([facility]) . 02 Note: Note 02 The [...] High,A-Abnormal,AA-Critical Abnormal Performed at: 02 [facility] [address] [place] [address] Karena Lester MD, SPATULA-ALONE ENDOCERVIX CLINISYNCNOMS HealthcareRECURRENT VAGINITIS (HTRX)on 43-54-9562NDTQPFPVE VAGINAE 0NOMS HealthcareATOPOBIUM VAGINAENot detectedNOMS HealthcareBVAB 2,3 (BACTERIAL VAGINOSIS ASSOCIATED BACTERIA 2, 3); MOBILUNCUS [id number] HealthcareBVAB 2,3 (BACTERIAL VAGINOSIS ASSOCIATED BACTERIA 2, 3); MOBILUNCUS SPPNot detectedNOMS HealthcareCANDIDA ALBICANS, PARAPSILOSIS, [id number] HealthcareCANDIDA ALBICANS, PARAPSILOSIS, TROPICALISNot detectedNOMS HealthcareCANDIDA GLABRATA0 NOMS HealthcareCANDIDA GLABRATANot detectedNOMS HealthcareCANDIDA [id number] HealthcareCANDIDA KRUSEINot detectedNOMS HealthcareCHLAMYDIA [id number] HealthcareCHLAMYDIA TRACHOMATISNot detectedNOMS HealthcareGARDNERELLA VAGINALIS0 NOMS HealthcareGARDNERELLA VAGINALISNot detectedNOMS HealthcareMEGASPHAERA (TYPES 1, 2)0NOMS HealthcareMEGASPHAERA (TYPES 1, 2)Not detectedNOMS Healthcare MYCOPLASMA [id number] HealthcareMYCOPLASMA GENITALIUMNot detectedNOMS HealthcareNEISSERIA [id number] HealthcareNEISSERIA GONORRHOEAENot detected NOMS HealthcareTRICHOMONAS [id number] HealthcareTRICHOMONAS VAGINALISNot detectedNOMS HealthcareNOMS HealthcareUrinalysis macro (dipstick) panel (U)on 23-40-0087Scntjstvf, UANegativeNegative - 4(70) +++ mg/dLNONC HealthcareBlood, UAPositiveNegative - 50 Jae/mcLNONC HealthcareClarity, UAClearNOMS Healthcare Color, UAYellowNOMS HealthcareGlucose, UANegativeNegative - 2000(110) ++++ mg/dL [facility] HealthcareInterpretation and review of laboratory resultsAbnormalNONC HealthcareKetones, UANegativeNegative - 160(16) ++++ mg/dLNONC Healthcare Leukocytes, UANegativeNegative - 500+++ Marsha/mcLNONC HealthcareNitrite, UA NegativeNegative - PositiveNOMS HealthcarepH, UA65 - 9NOMS HealthcareProtein, UA NegativeNegative - 2000(20) ++++ mg/dLNONC HealthcareSpec Grav, UA1.021 - 1.03 NOMS HealthcareUrobilinogen, UA1.00.2 - 12 mg/dLNOMS HealthcareNOMS HealthcareUS OB < 14 WEEKS EARLYon 50-19-3276TV OB < 14 WEEKS EARLYFINDINGS: Single viable [...] period was 11/13/2024.Urinalysis macro (dipstick) panel (U)on 50-78-4762Cpzajhqak, UANegativeNegative - 4(70) +++ mg/dLNONC Healthcare Blood, UANegativeNegative - 50 Jae/mcLUT[facility] HealthcareClarity, UAClearNOMS HealthcareColor, UAYellowNONC HealthcareGlucose, UANegativeNegative - 2000(110) ++++ mg/dLNONC HealthcareInterpretation and review of laboratory resultsNormal NOMS HealthcareKetones, UAPositiveNegative - 160(16) ++++ mg/dLUTAH VALLEY [facility] Healthcare Leukocytes, UANegativeNegative - 500+++ Marsha/[facility] HealthcareNitrite, UA NegativeNegative - PositiveNONC HealthcarepH, UA55 - 9NOMS HealthcareProtein, UA TraceNegative - 2000(20) ++++ mg/dLNONC HealthcareSpec Grav, UA1.031 - 1.03NONC HealthcareUrobilinogen, UA1.00.2 - 12 mg/dLNOMS [facility] HospitalNOMS HealthcareBOX TESTon 22-73-9036VLD TEST SENT OUTYESUTAH VALLEY [facility]PITAL VyqbjtzixdBZR2CTMHVKDDU HealthcareBOX2 01/22/25NONC HealthcareCLINISYNCNOMS HealthcareUS Pelvis transvaginalon 01-14-2025 EXAM: US [...] II, MD, PHD at 14-Jan-2025 10:04:37 PM [facility] IMAGINGSluss, MD Rosenda - 01/14/2025 EXAM: [...] II, MD, PHD at 14-Jan-2025 10:04:37 PM [employer] NOMS HealthcareUS Pelvis transvaginalOrdered By: Rosenda Torres on 68-01-8271XFYX Healthcare Work Phone: HCG ( test) Ql (U)on 20-95-2803Geccjfcgnesllx and review of laboratory resultsAbnormalNONC HealthcarePreg Test, UrPositive NegativeNOJohn J. Pershing VA Medical CenterNONC HealthcareUS OB TRANSVAGINALon 35-84-8196WB OB TRANSVAGINALEXAM: US OB TRANSVAGINAL HISTORY: Dating. [...] II, MD, PHD at 14-Jan-2025 10:04:37 PM [employer] TeleradiologyNormalNot AvailableComment on above:Order Comment: US OB TRANSVAGINAL No LMP recorded.US Pelvis transvaginalon 95-47-4850Damojxeol Study observation (narrative)NOMS HealthcareUrinalysis macro (dipstick) panel (U)on 01-12-2025 Bilirubin, UANegativeNegative - 4(70) +++ mg/dLNOMS HealthcareBlood, UANegative Negative - 50 Jae/mcLNOMS HealthcareClarity, UAClearNOMS HealthcareColor, UA YellowNOMS HealthcareGlucose, UANegativeNegative - 2000(110) ++++ mg/dLNOMS HealthcareInterpretation and review of laboratory resultsAbMcLaren Central [facility] Ketones, UANegativeNegative - 160(16) ++++ mg/dLNOMS HealthcareLeukocytes, UA TraceNegative - 500+++ Marsha/mcLNOMS HealthcareNitrite, UANegativeNegative - PositiveNOMS HealthcarepH, UA75 - 9NOMS HealthcareProtein, UANegativeNegative - 2000(20) ++++ mg/dLNOMS HealthcareSpec Grav, UA1.021 - 1.03NOMS Healthcare Urobilinogen, UA0.20.2 - 12 mg/dLNOMS HealthcareNOMS Wucijxlruz35-vhkyuxmblfcznn D3 [Mass/Vol]on 470592-sbbiiikigloepb D [Mass/Vol]26 ng/mLLow30 - 100 ng/mLSheltering Arms HospitalComment on above:Vitamin D Status 25-OH Vitamin D: Deficiency: <20 ng/mL Insufficiency: 20 - 29 ng/mL Optimal: > or = 30 ng/mL For 25-OH Vitamin D testing on patients on D2-supplementation and patients for whom quantitation of D2 and D3 fractions is required, the QuestAssureD(TM) 25-OH VIT D, (D2,D3), LC/MS/MS is recommended: order code 31380 (patients >2yrs). See Note 1 Note 1 For additional information, please refer to http://education.Vidly.Zkatter/faq/VOY917 (This link is being provided for informational/ educational purposes only.) Interpretation and review of laboratory resultsAbMercy Health [facility]rbana Hospital (H/H, RBC, INDICES, WBC, PLT)on 44-18-7523Sjtzokypvoo distribution width (RBC) [Ratio]12.3 %Izxaio38.0-15.0Quest DiagnosticsComment on above: Performed By: #### 7600, 80165, 03301, 927, 175, #### [facility] [place] [address] Flavor Extractor: Brandon Camara MDHematocrit (Bld) [Volume fraction]38.8 %Normal 35.0-45.0Quest DiagnosticsComment on above:Performed By: #### 7600, 83872, 11151, 927, 175, #### [facility] [place] [address] Flavor Extractor: Brandon Camara MDHemoglobin (Bld) [Mass/Vol]12.7 g/dLNormal 11.7-15.5Quest DiagnosticsComment on above:Performed By: #### 7600, 09685, 62173, 927, 1758, #### [facility] [place] [address] Flavor Extractor: Brandon Camara MDMCH (RBC) [Entitic mass]28.4 ixYkwdli65.0-33.0 Quest DiagnosticsComment on above:Performed By: #### 7600, 85121, 56700, 927, 175, #### [facility] [place] [address] Flavor Extractor: Brandon DOTYCHC (RBC) [Mass/Vol]32.7 g/dPFerrvt19.0-36.0 [facility] DiagnosticsComment on above:Result Comment: For adults, a slight decrease in the calculated MCHC value (in the range of 30 to 32 g/dL) is most likely not clinically significant; however, it should be interpreted with caution in correlation with other red cell parameters and the patient's clinical condition.Performed By: #### 7600, 30151, 57485, 927, 1759, 81816 #### [facility] of [place] [address], [address] [place] [phone] Flavor Extractor: Brandon Camara MDMCV (RBC) [Entitic vol]86.8 sLQxosfd53.0-100.0 Quest DiagnosticsComment on above:Performed By: #### 7600, 90681, 39465, 927, 1759, 65924 #### [facility] [place] [address], [address] [place] [phone] Flavor Extractor: Brandon Camara MDPlatelet mean volume (Bld) [Entitic vol]9.0 fL Normal7.5-12.5Quest DiagnosticsComment on above:Performed By: #### 7600, 10457, 84500, 927, 175, #### [facility] [place] [address] [place], [place] [phone] Flavor Extractor: Brandon Camara MDPlatelets (Bld) [#/Vol]260 10*3/uLNormal 140-400Quest DiagnosticsComment on above:Performed By: #### 7600, 88578, 78147, 927, 1759, 36343 #### [facility] [place] [address], [address] [place], [place] [phone] Flavor Extractor: Brandon Camara MDRBC (Bld) [#/Vol]4.47 10*6/uLNormal3.80-5.10 Quest DiagnosticsComment on above:Performed By: #### 7600, 27650, 90587, 927, 1759, 55589 #### [facility] [place] [address], [address] [place] [phone] Flavor Extractor: Brandon Camara MDWBC (Bld) [#/Vol]5.5 10*3/uLNormal3.8-10.8 Quest DiagnosticsComment on above:Performed By: #### 7600, 88692, 55332, 927, 1759, 52953 #### [facility] [place] [address], [address] [place] [address] Flavor Extractor: Brandon Camara MDCBC panel Auto (Bld)on 03-46-8683Wzkizwctaqs distribution width (RBC) [Ratio]12.3 %11.0 - 15.0 %[facility] HospitalHematocrit (Bld) [Volume fraction]38.8 %35.0 - 45.0 %[facility] HospitalHemoglobin (Bld) [Mass/Vol]12.7 g/dL11.7 - 15.5 g/dL [facility] (RBC) [Entitic mass]28.4 pg27.0 - 33.0 pg [facility] NorthHC (RBC) [Mass/Vol]32.7 g/dL32.0 - 36.0 g/dL [facility] HospitalComment on above:For adults, a slight decrease in the calculated MCHC value (in the range of 30 to 32 g/dL) is most likely not clinically significant; however, it should be interpreted with caution in correlation with other red cell parameters and the patient's clinical condition. MCV (RBC) [Entitic vol]86.8 fL80.0 - 100.0 [facility] Platelet mean volume (Bld) [Entitic vol]9 fL7.5 - 12.5 [facility] HospitalPlatelets (Bld) [#/Vol]260 10*3/[facility] HospitalRBC (Bld) [#/Vol]4.47 10*6/[facility] HospitalWBC (Bld) [#/Vol]5.5 10*3/[facility] HospitalCOMPREHENSIVE METABOLIC PANEL W/ANION GAPon 68-95-7882Knmrjwu [Mass/Vol]4.8 g/dLNormal3.6-5.1Quest DiagnosticsComment on above:Performed By: #### 0666, 50439, 87232, 137, 1758, 90551 #### [facility] [address] [facility], [address] [place] [address] Flavor Extractor: Brandon Camara MDALP [Catalytic activity/Vol]60 U/JCqzzwv24-539 Quest DiagnosticsComment on above:Performed By: #### 7600, 96038, 03715, 927, 175, #### [facility] of [address], [address] [place] [address] Flavor Extractor: Brandon Camara MDALT [Catalytic activity/Vol]14 U/LNormal6-29 Quest DiagnosticsComment on above:Performed By: #### 7600, 49078, 22963, 92, 1758, #### [facility] of [address], [address] [place] [address] Flavor Extractor: Brandon Camara MDAST [Catalytic activity/Vol]12 U/EVhgafq13-52 Quest DiagnosticsComment on above:Performed By: #### 7600, 78663, 53876, 92, 1758, #### [facility] of [address], [address] [place] [address] Flavor Extractor: Brandon Camara MDBilirubin [Mass/Vol]0.4 mg/dLNormal0.2-1.2 Quest DiagnosticsComment on above:Performed By: #### 7600, 41216, 99752, 92, 1758, #### [facility] [place] [address] Flavor Extractor: Brandon Camara MDCalcium [Mass/Vol]9.6 mg/dLNormal8.6-10.2Quest DiagnosticsComment on above:Performed By: #### 7600, 88036, 61136, 92, 1758, #### [facility] of [address], [address] [place] [address] Flavor Extractor: Brandon Camara MDChloride [Moles/Vol]102 mmol/SWtlqel37-681 Quest DiagnosticsComment on above:Performed By: #### 7600, 95244, 80793, 92, 175, #### [facility] [place] [address] Flavor Extractor: Brandon Merati MDCO2 [Moles/Vol]28 mmol/YCbzfgn59-25Ehsza DiagnosticsComment on above:Performed By: #### 7600, 41724, 38184, 927, 175, #### [facility] [place] [address] Flavor Extractor: Brandon MOREIRAreatinine [Mass/Vol]0.86 mg/dLNormal0.50-0.97 Quest DiagnosticsComment on above:Performed By: #### 7600, 60088, 31861, 92, 175, #### [facility] [place] [address] Flavor Extractor: Brandon Camara MDELECTROLYTE BALANCE7 mmol/L (calc)Normal7-17 Quest DiagnosticsComment on above:Performed By: #### 7600, 24437, 15057, 92, 1758, #### [facility] [place] [address] Flavor Extractor: Brandon Camara MDGFR/1.73 sq M.predicted among non-blacks MDRD (S/P/Bld) [Vol rate/Area]93 mL/min/{1.73_m2}Normal> OR = 60[facility] Comment on above:Performed By: #### 7600, 13055, 41018, 92, 1758, #### [facility] [place] [address] Flavor Extractor: Brandon Camara MDGlucose [Mass/Vol]90 mg/aGZhubrk21-29Ssquz DiagnosticsComment on above:Result Comment: Fasting reference intervalPerformed By: #### 7600, 07125, 61470, 927, 175, 24722 #### [facility] [place] [address] Flavor Extractor: Brandon Camara MDPotassium [Moles/Vol]4.5 mmol/LNormal3.5-5.3 Quest DiagnosticsComment on above:Performed By: #### 7600, 13263, 02871, 927, 1759, 98689 #### [facility] [place] [address] Flavor Extractor: Brandon Camara MDProtein [Mass/Vol]7.4 g/dLNormal6.1-8.1Quest DiagnosticsComment on above:Performed By: #### 7600, 28574, 84719, 927, 1759, 36434 #### [facility] [address], [address] [place] [address] Flavor Extractor: Brandon Camara MDSodium [Moles/Vol]137 mmol/TDvkgdg848-005Brvyq DiagnosticsComment on above:Performed By: #### 7600, 28111, 36997, 927, 1759, 25601 #### [facility] of [address], [address] [place] [address] Flavor Extractor: Brandon Camara MDUrea nitrogen [Mass/Vol]7 mg/dLNormal7-25Quest DiagnosticsComment on above:Performed By: #### 7600, 17022, 35533, 927, 1759, 64162 #### [facility] of [place] [address] Flavor Extractor: Brandon Camara MDComprehensive metabolic 2000 panelon 67-39-8974Nequsqh [Mass/Vol]4.8 g/dL3.6 - 5.1 g/dLUnSumma Health Wadsworth - Rittman Medical CenterALP [Catalytic activity/Vol]60 U/L31 - 125 U/[facility] SystemALT [Catalytic activity/Vol]14 U/L6 - 29 U/[facility] SystemAnion gap [Moles/Vol]7 mmol/[facility] SystemAST [Catalytic activity/Vol]12 U/L10 - 30 U/[facility] Bilirubin [Mass/Vol]0.4 mg/dL0.2 - 1.2 mg/dLUnSumma Health Wadsworth - Ritt[facility] Medical Center Calcium [Mass/Vol]9.6 mg/dL8.6 - 10.2 mg/dLUnSumma Health Wadsworth - R[facility]man Medical Center Chloride [Moles/Vol]102 mmol/L98 - 110 mmol/[facility] CO2 [Moles/Vol]28 mmol/L20 - 32 mmol/[facility] Creatinine [Mass/Vol]0.86 mg/dL0.50 - 0.97 mg/dLUnSumma Health Wadsworth - Rittman Medical CenterGFR/1.73 sq M.predicted among non-blacks MDRD (S/P/Bld) [Vol rate/Area] 93 mL/min/{1.73_m2}> OR = 60 mL/min/1.58r8NsonbduvwcSumma Health Wadsworth - Rittman Medical Center Glucose [Mass/Vol]90 mg/dL65 - 99 mg/dLUnSumma Health Wadsworth - Rittman Medical CenterComment on above: Fasting reference interval Potassium [Moles/Vol]4.5 mmol/L3.5 - 5.3 mmol/[facility] Protein [Mass/Vol]7.4 g/dL6.1 - 8.1 g/dLUnSumma Health Wadsworth - Rittman Medical CenterSodium [Moles/Vol]137 mmol/L135 - 146 mmol/[facility] SystemUrea nitrogen [Mass/Vol]7 mg/dL7 - 25 mg/dLUnSumma Health Wadsworth - Rittman Medical CenterLIPID PANEL, STANDARDon 09-67-8683Cbyerjidfbo [Mass/Vol]167 mg/dLNormal<200Quest DiagnosticsComment on above:Order Comment: FASTING:YES FASTING: YESPerformed By: #### 7600, 65541, 66469, 927, 1759, 03685 #### [facility] [address], [address] [place] [phone] Flavor Extractor: Brandon Camara MDCholesterol in HDL [Mass/Vol]52 mg/dLNormal> OR = 50Quest DiagnosticsComment on above:Order Comment: FASTING:YES FASTING: YESPerformed By: #### 7600, 68341, 78022, 927, 1759, 60533 #### [facility] [address] , [address] [place] [address] Flavor Extractor: Brandon Camara MDCholesterol in LDL [Mass/Vol]95 mg/dLNormal [...] LDL-C. Tres SS et al. STEPHANIE. 2013;310(19): 8017-3784 (http://education.Tek Travels/faq/KBF648)Performed By: #### 7600, 48702, 97682, 927, 1759, 60055 #### [facility] [address], [address] [place] [address] Flavor Extractor: Brandon MOREIRAholesterojohn.total/Cholesterol in HDL [Mass ratio]3.2 {ratio}Normal<5.0Quest DiagnosticsComment on above:Order Comment: FASTING:YES FASTING: YESPerformed By: #### 7600, 27919, 40570, 927, 1759, 35127 #### [facility] [address], [address] [place], [place] [address] Flavor Extractor: Brandon NICOLE HDL KTFGGUVRBHI353 mg/dL (calc)Normal<130 [facility] DiagnosticsComment on above:Order Comment: FASTING:YES FASTING: YESResult Comment: For patients with diabetes plus 1 major ASCVD risk factor, treating to a non-HDL-C goal of <100 mg/dL (LDL-C of <70 mg/dL) is considered a therapeutic option.Performed By: #### 7600, 83864, 86614, 927, 1759, 06037 #### [facility] [address], [address] [place], [place] [address] Flavor Extractor: Brandon Camara MDTriglyceride [Mass/Vol]103 mg/dLNormal<150 [facility] DiagnosticsComment on above:Order Comment: FASTING:YES FASTING: YESPerformed By: #### 7600, 49703, 23129, 927, 1758, 71680 #### [facility] [address] [facility], [address] [place] [address] Flavor Extractor: Brandon Camara MDLipid 1996 panelon 57-78-3354Yuurpccfocg [Mass/Vol]167 mg/dLNINF - 200 mg/dLUnSumma Health Wadsworth - Rittman Medical CenterCholesterol in HDL [Mass/Vol]52 mg/dL> OR = 50UnSumma Health Wadsworth - Rittman Medical CenterCholesterol in LDL [Mass/Vol]95 mg/dLmg/dL (calc)[facility] HospitalComment on above:Reference range: <100 Desirable range <100 mg/dL for primary prevention; <70 mg/dL for patients with CHD or diabetic patients with > or = 2 CHD risk factors. LDL-C is now calculated using the Dean calculation, which is a validated novel method providing better accuracy than the Friedewald equation in the estimation of LDL-C. Tres SS et al. STEPHANIE. 2013;310(19): 1501-7559 (http://education.Tek Travels/faq/SAR317) Cholesterol non HDL [Mass/Vol]115 mg/dLNINFSheltering Arms Hospital Comment on above:For patients with diabetes plus 1 major ASCVD risk factor, treating to a non-HDL-C goal of <100 mg/dL (LDL-C of <70 mg/dL) is considered a therapeutic option. Cholesterol.total/Cholesterol in HDL [Mass ratio]3.2 {ratio}NINLakeHealth Beachwood Medical CenterTriglyceride [Mass/Vol]103 mg/dLNINF - 150 mg/dLUnSumma Health Wadsworth - Rittman Medical CenterNo Panel Informationon 60-14-4676TZQXGKE:YES FASTING: YESQUEST DIAGNOSTICS-AUSTINUnSumma Health Wadsworth - Rittman Medical CenterTSH W/REFLEX TO FT4on 18-53-2814GQF W/REFLEX TO FT42.63 mIU/LNormalQuest [facility] Comment on above:Result Comment: Reference Range > or = 20 Years 0.40-4.50 Ranges First trimester 0.26-2.66 Second trimester 0.55-2.73 Third trimester 0.43-2.91Performed By: #### 2440, 30315, 70611, 927, 1755, 79270 #### [facility] [address], [address] [place] [address] Flavor Extractor: Brandon Camara MDIS[facility] with reflex to Free T4 if abnormalon 95-71-7473PAT Qn2.63 m[IU]/LmIU/[facility] SystemComment on above:Reference Range > or = 20 Years 0.40-4.50 Ranges First trimester 0.26-2.66 Second trimester 0.55-2.73 Third trimester 0.43-2.91 VITAMIN B12on 53-97-5987Fowbhhaei (Vitamin B12) [Mass/Vol]402 pg/mLNormal 200-1100Quest DiagnosticsComment on above:Performed By: #### 7600, 46051, 82988, 100, 3459, 80033 #### [facility] [address], [address] [place] [phone] Flavor Extractor: Brandon Camara MDVITAMIN D,25-OH,TOTAL,IAon 35-88-7793FPEGWHB D,25-OH,TOTAL,IA26 ng/uWCbz11-020Tsvip DiagnosticsComment on above:Result Comment: Vitamin D Status 25-OH Vitamin D: Deficiency: <20 ng/mL Insufficiency: 20 - 29 ng/mL Optimal: > or = 30 ng/mL For 25-OH Vitamin D testing on patients on D2-supplementation and patients for whom quantitation of D2 and D3 fractions is required, the QuestAssureD(TM) 25-OH VIT D, (D2,D3), LC/MS/MS is recommended: order code 98301 (patients >2yrs). See Note 1 Note 1 For additional information, please refer to http://education.Vidly.Zkatter/faq/QKY643 (This link is being provided for informational/ educational purposes only.)Performed By: #### 7600, 77319, 70590, 929, 0021, 72715 #### [facility] [address], [address] [place] [phone] Flavor Extractor: Brandon Camara MDVitamin B12on 37-89-9894Vmtbbktrm (Vitamin B12) [Mass/Vol]402 pg/mL200 - 1100 pg/mLUnSumma Health Wadsworth - Rittman Medical Center Quantiferon-TB Plus (Client Incubated)on 87-29-8187Ntslq interferon background IA Qn (Bld)0.01 International_Unit/mLInvalid Interpretation [facility] HospitalComment on above:Performed By: #### [id number] #### [facility] [address] [place] [address]. tuberculosis stim IFN-g by CD4+ CD8+ T-cells corrected for background Qn (Bld)0.02 International_Unit/mLInvalid Interpretation CodeAvita Health System Ontario HospitalComment on above:Performed By: #### [id number] #### [facility] [address] [place] [address]. tuberculosis stim IFN-g by CD4+ T-cells corrected for background Qn (Bld)0.03 International_Unit/mLInvalid Interpretation [facility] HospitalComment on above:Performed By: #### [id number] #### [facility] [address] [place] [address]. tuberculosis stim IFN-g Ql (Bld) [Interp]NegativeInvalid Interpretation CodeNegativeAvita Health System Ontario HospitalComment on above:Result Comment: No response to [...] interferon gamma. Chemiluminescence immunoassay methodology Performed at: [facility] [address] [place] [id number] PhD Leeanne GarciaPerformed By: #### [id number] #### [facility] [address] [place], [place] [address]Mitogen stimulated gamma interferon corrected for background Qn (Bld)>10.00Invalid Interpretation [facility] HospitalComment on above:Performed By: #### [id number] #### [facility] [address] [place] [address]Gdgzwpf comment (Unsp spec) [Interp]CommentInvalid Interpretation [facility] HospitalComment on above:Result Comment: QuantiFERON-TB Gold Plus [...] a control for the test.Performed By: #### [id number] #### [facility] [address] [place] [address]Htw Bs Abon 09-47-1255QKG surface Ab Ql (S)ReactiveInvalid Interpretation [facility] HospitalComment on above:Result Comment: Non Reactive: Not immune to HBV infection. Equivocal: Unable to determine if anti-HBs is present at levels consistent with immunity. Reactive: Anti-HBs concentration detected at greater than 10 mIU/mL. Individual is considered to be immune to infection with HBV. Performed at: [address] [id number] PhD Leeanne Moyaformed By: #### [id number] #### [facility] [address] [place] [address]Jwgxngv/Mumps/Rubella Immunityon 10-18-8701EzR IgG IA Qn (S) 206.0 A unit/mLInvalid Interpretation CodeImmune >16.4[facility] Pr[facility] HospitalComment on above:Result Comment: Negative <13.5 Equivocal 13.5 - 16.4 Positive >16.4 Presence of antibodies to Rubeola is presumptive evidence of immunity except when acute infection is suspected.Performed By: #### [id number] #### [facility] [address] [place] [address]OhJ IgG IA Qn (S)38.5 A unit/mLInvalid Interpretation Code Immune >10.9[facility] HospitalComment on above:Result Comment: Negative <9.0 Equivocal 9.0 - 10.9 Positive >10.9 A positive result generally indicates past exposure to Mumps virus or previous vaccination. Performed at: [facility] [address] [place], [place] [id number] PhD Leeanen GarciaPerformed By: #### [id number] #### [facility] [address] [place] [address]Nzavyjm virus IgG Qn (S)1.07 [IU]/mLInvalid Interpretation Code Immune >0.99[facility] HospitalComment on above:Result Comment: Non- immune <0.90 Equivocal 0.90 - 0.99 Immune >0.99Performed By: #### [id number] #### [facility] [address] [place] [address]Ouspx IgGon 12-82-9049HYD IgG IA Qn (S)1518Invalid Interpretation CodeImmune >165[facility] Ontario HospitalComment on above:Result Comment: Negative <135 Equivocal 135 - 165 Positive >165 A positive result generally indicates exposure to the pathogen or administration of specific immunoglobulins, but it is not indication of active infection or stage of disease. Performed at: [facility] [address] [place], [place] [id number] PhD Leeanne GarciaPerformed By: #### [id number] #### [facility] [address] [place] [address]80[address]Xszxmld Formson 02-79-6985Nhgyhtp Forms [id number]#1.00OTGTIFFKettering Health Greene MemorialED Clinical Summaryon 07-97-0028SM [facility] [address] [place], [place] [id number] Clinical Summary PERSON INFORMATION Name: PRINCESS GUERRERO Age: 28 Years Sex: FEMALE : 1995 MRN: Acct#: Visit Reason: Medical screening exam; OTTERBEIN PHYSICAL Arrival: 12/15/2023 11:27:18 Discharge: 12/15/2023 11:57:00 LOS: 000 00:30 Check In: 12/15/2023 11:27:18 Checkout: 12/15/2023 11:57:00 Address: [address] [place], [place] [address] PCP: Provider, None PROVIDER INFORMATION Provider Role [...] blood pressure. With: Address: When: None Provider [address] [place] [address] DIAGNOSIS: Elevated blood pressure reading; Physical exam Patient Understands: Yes - Patient/family/caregiver verbalizes understanding of instructions given Comment:[facility] MemorialED Patient Summary 62-95-3051DQ Patient Summary [facility] ? Urgent Care [address] [place] [address] PATIENT DISCHARGE INSTRUCTIONS Patient Information Name: PRINCESS [...] blood pressure. With: Address: When: None Provider [address] [place] [address] Hypertension, Adult High blood pressure (hypertension) is [...] as fish, chicken wit (more content not included)...[facility] MemorialUr[facility] Care Note- Provideron 55-28-4630Obsbln Care Note- ProviderPatient: PRINCESS GUERRERO Age: 28 [...] - pharynx pink and moist. NECK: -Supple (gwur-gq-zwggo): non-tender. CARD: -Rate and rhythm: Regular RESP: [...] Plan Assessment and Plan: Diagnosis: Physical exam (UEF74-JJ Z00.00), Elevated blood pressure reading (SPH35-RV R03.0). Cleared for employment [Electronically Signed on: 12/15/2023 11:52 EDT] TARAS FAUSTIN [Verified on: 12/15/2023 11:52 EDT] TARAS FAUSTIN [facility] 44-42-3082ZspaqbK[facility]itas [facility] ? [facility] [address] [place], [place] [id number] PATIENT DISCHARGE INSTRUCTIONS Patient Information Name: PRINCESS [...] blood pressure. With: Address: When: None Provider [address] [place] [address] Medication Information: The exam and treatment you received today in the [facility] were for an urgent problem and are not intended as complete care. It is important for you to follow up with a doctor, nurse practitioner, or physician?s student assistant for ongoing care. If your symptoms [...] can reach you if necessary. [facility] has provided you with a complete list of medications post discharge. Please inform your data processing specialist/provider of your visit and for further instruction [...] too much fat, sugar, (more content not included)...[facility] 46-25-0345VPhgjdgef: BS24-10 Received: 08/04/23 Status: LAZARA Lyn Num: [id number] Spec Type: Surgical Subm Dr: Willis Chen Tissues: A Placenta - 3rd Trimester (Greater than 28 weeks) (PLACENTA) Procedures: HE/3, Gross/Micro L5 Age/ Patient Sex Location Account Attending Physician Princess Cantu 27/F LABELL [id number] Willis Chen SPEC NUM: [id number] RECD: 08/04/23 STATUS: LAZARA LYN NUM: [id number] JOSE: 08/04/[address]: Willis Chen ENTERED: 08/04/23 [facility] [...] parenchyma up to 3.1 cm in thickness. Blue Split Trimmer sections are submitted in 3 cassettes as follows: A1 - membranes, umbilical cord, and decidua basalis A2 - Central placenta full-thickness A3 - Peripheral placenta, full-thickness Specimen: [id number] Received: 08/04/23 Status: LAZARA Lyn Num: [id number] Spec Type: Surgical Subm Dr: Willis Chen Tissues: A Placenta - 3rd Trimester (Greater than 28 weeks) (PLACENTA) Procedures: HE/3, Gross/Micro L5 Patient: Princess Cantu [id number] (Continued) Specimen: [id number] Received: 08/04/23 (Continued) Signed (signature on file) Juliet Sykes MD 08/08/232229 Specimen: BS24- Received: 08/04/23 Status: LAZARA Lyn Num: [id number] Spec Type: Surgical Subm Dr: Willis Chen Tissues: A Placenta - 3rd Trimester (Greater than 28 weeks) (PLACENTA) Procedures: DELMY/3Jesica/Danitza L5 Patient: Princess Cantu [id number] (Continued) Specimen: [id number] Received: 08/04/23 (Continued) CPT Codes 48178 Specimen: BS24- Received: 08/04/23 Status: LAZARA Lyn Num: [id number] Spec Type: Surgical Subm Dr: Willis Chen Tissues: A Placenta - 3rd Trimester (Greater than 28 weeks) (PLACENTA) Procedures: DELMYJesica Ott/Danitza L5 Patient: Princess Cantu [id number] (Continued) Signed (signature on file) Juliet Sykes MD 08/08/[address] [place], [place] [address]US OB BPP W NON-STRESS on 29[place]27[place] [address] Ultrasound Report Signed Patient: PRINCESS CANTU MR#: [id number] : 1995 Acct:[id number] Age/Sex: 27 / F ADM Date: 07/31/23 Loc: US Attending Dr: Willis Chen D.O. Ordering Physician: Willis Chen D.O. Date of Service: 07/31/23 Procedure(s): US OB BPP w non-stress Accession Number(s): [id number] cc: Willis Chen D.O.; Physician,Non-Staff Jake [address] [address] Patient Name: PRINCESS CANTU MRN: TBH:[id number] date: 1995 Sex: F Assigned Patient Location: US Current Patient Location: US Accession/Order Number: [id number] Exam Date: 07/31/2023 11:04 Report Date: 08/03/2023 [...] M.D. Signed By: 08/03/23719 DD/ 7 TD/TT: Collection Specialist:TBHRadiology, Radiologist, - 09/22/2023 [place] [address] Ultrasound Report Signed Patient: PRINCESS CANTU MR#: [id number] : 1995 Acct:[id number] Age/Sex: 27 / F ADM Date: 07/31/23 Loc: US Attending Dr: Willis Chen D.O. Ordering Physician: Willis Chen D.O. Date of Service: 07/31/23 Procedure(s): US OB BPP w non-stress Accession Number(s): [id number] cc: Willis Chen D.O.; Physician,Non-Staff Jake The [place] [phone] Patient Name: PRINCESS CANTU MRN: [id number] date: 1995 Sex: F Assigned Patient Location: US Current Patient Location: US Accession/Order Number: [id number] Exam Date: 07/31/2023 11:04 Report Date: 08/03/2023 [...] M.D. Signed By: 08/03/23719 DD/ 7 TD/TT: Collection Specialist: JOSY HealthcareRadiology Study observation (narrative)NOMS HealthcareUS OB BPP W NON-STRESSOrdered By: Radiologist Radiology on 32-99-0775RILH [email or web address] Work Phone: US OB BPP W NON-STRESSon 60-53-3357Vnr[place] [address] Ultrasound Report Signed Patient: PRINCESS CANTU MR#: [id number] : 1995 Acct:[id number] Age/Sex: 27 / F ADM Date: 07/24/23 Loc: US Attending Dr: Willis Chen D.O. Ordering Physician: Willis Chen D.O. Date of Service: 07/24/23 Procedure(s): US OB BPP w non-stress Accession Number(s): [id number] cc: Willis Chen D.O.; Physician,Non-Staff M.DLima The [place] [address] Patient Name: PRINCESS CANTU MRN: [id number] date: 1995 Sex: F Assigned Patient Location: [facility] Current Patient Location: Accession/Order Number: [id number] Exam Date: 07/24/2023 08:19 Report Date: 07/26/2023 [...] M.D. Signed By: 07/26/23711 DD/ 8 TD/TT: Collection Specialist:RAYNAadiologchristina, Radiologist, MD - 09/22/2023 [place] [address] Ultrasound Report Signed Patient: PRINCESS CANTU MR#: [id number] : 1995 Acct:[id number] Age/Sex: 27 / F ADM Date: 07/24/23 Loc: US Attending Dr: Willis Chen D.O. Ordering Physician: Willis Chen D.O. Date of Service: 07/24/23 Procedure(s): US OB BPP w non-stress Accession Number(s): [id number] cc: Willis Chen D.O.; Physician,Non-Staff M.No The [place] [address] Patient Name: PRINCESS CANTU MRN: [id number] date: 1995 Sex: F Assigned Patient Location: [facility] Current Patient Location: Accession/Order Number: [id number] Exam Date: 07/24/2023 08:19 Report Date: 07/26/2023 [...] M.D. Signed By: 07/26/23711 DD/ 8 TD/TT: Collection Specialist: JOSY HealthcareRadiology Study observation (narrative)NOMS HealthcareUS OB BPP W NON-STRESSOrdered By: Radiologist Radiology on 50-09-1274QPOO [email or web address] Work Phone: US OB BPP W NON-STRESSon 44-93-5214Kpc[place] [address] Ultrasound Report Signed Patient: PRINCESS CANTU MR#: [id number] : 1995 Acct:[id number] Age/Sex: 27 / F ADM Date: 07/17/23 Loc: US Attending Dr: Willis Chen D.O. Ordering Physician: Willis Chen D.O. Date of Service: 07/17/23 Procedure(s): US OB BPP w non-stress Accession Number(s): [id number] cc: Willis Chen D.O.; Physician,Non-Staff M.DLima The [place] [address] Patient Name: PRINCESS CANTU MRN: [id number] date: 1995 Sex: F Assigned Patient Location: US Current Patient Location: Accession/Order Number: [id number] Exam Date: 07/17/2023 11:20 Report Date: 07/20/2023 [...] M.D. Signed By: 07/20/23713 DD/ 0 TD/TT: Collection Specialist:TBHRadiology, Radiologist, - 09/22/2023 [place] [address] Ultrasound Report Signed Patient: PRINCESS CANTU MR#: [id number] : 1995 Acct:[id number] Age/Sex: 27 / F ADM Date: 07/17/23 Loc: US Attending Dr: Willis Chen D.O. Ordering Physician: Willis Chen D.O. Date of Service: 07/17/23 Procedure(s): US OB BPP w non-stress Accession Number(s): [id number] cc: Willis Chen D.O.; Physician,Non-Staff Jake [facility] [place] [address] Patient Name: PRINCESS CANTU MRN: [id number] date: 1995 Sex: F Assigned Patient Location: US Current Patient Location: Accession/Order Number: [id number] Exam Date: 07/17/2023 11:20 Report Date: 07/20/2023 [...] M.D. Signed By: 07/20/23713 DD/ 0 TD/TT: Collection Specialist: NOMS HealthcareRadiology Study observation (narrative)NOMS HealthcareUS OB BPP W NON-STRESSOrdered By: Radiologist Radiology on 58-60-7277FHRH Healthcare Work Phone: US OB BPP W NON-STRESSon 78-20-9077Mjj[place] [address] Ultrasound Report Signed Patient: PRINCESS CANTU MR#: [id number] : 1995 Acct:[id number] Age/Sex: 27 / F ADM Date: 07/10/23 Loc: FBCO Attending Dr: Willis Chen D.O. Ordering Physician: Willis Chen D.O. Date of Service: 07/10/23 Procedure(s): US OB BPP w non-stress Accession Number(s): [id number] cc: Willis Chen D.O.; Physician,Non-Staff M.No The [place] [address] Patient Name: PRINCESS CANTU MRN: [facility]:[id number] date: 1995 Sex: F Assigned Patient Location: [facility] Current Patient Location: Accession/Order Number: [id number] Exam Date: 07/10/2023 14:31 Report Date: 07/11/2023 [...] Draper M.D. Signed By: 07/11/230 DD/ TD/TT: Collection Specialist:TBHRadiology, Radiologist, MD - 07/11/2023 [place] [address] Ultrasound Report Signed Patient: PRINCESS CANTU MR#: [id number] : 1995 Acct:[id number] Age/Sex: 27 / F ADM Date: 07/10/23 Loc: FBCO Attending Dr: Willis Chen D.O. Ordering Physician: Willis Chen D.O. Date of Service: 07/10/23 Procedure(s): US OB BPP w non-stress Accession Number(s): [id number] cc: Willis Chen D.O.; Physician,Non-Staff Jake [facility] [place] [address] Patient Name: PRINCESS CANTU MRN: [facility]:[id number] date: 1995 Sex: F Assigned Patient Location: [facility] Current Patient Location: Accession/Order Number: [id number] Exam Date: 07/10/2023 14:31 Report Date: 07/11/2023 [...] M.D. Signed By: 07/11/23 0020 DD/ TD/TT: Collection Specialist: JOSY HealthcareRadiology Study observation (narrative)NOMS HealthcareUS OB BPP W NON-STRESSOrdered By: Radiologist Radiology on 94-22-8646BFSW Healthcare Work Phone: US OB GROWTHon 33-09-8737F[place] [address] Ultrasound Report Signed Patient: PRINCESS ACNTU MR#: [id number] : 1995 Acct:[id number] Age/Sex: 27 / F ADM Date: 07/10/23 Loc: FBCO Attending Dr: Willis Chen D.O. Ordering Physician: Willis Chen D.O. Date of Service: 07/10/23 Procedure(s): US OB growth Accession Number(s): [id number] cc: Willis Chen D.O.; Physician,Non-Staff Jake The [address] [address] Patient Name: PRINCESS CANTU MRN: [id number] date: 1995 Sex: F Assigned Patient Location: [facility] [place] [facility] Accession/Order Number: [id number] Exam Date: 07/10/2023 14:31 Report Date: 07/11/2023 [...] Draper M.D. Signed By: 07/11/2349 DD/ TD/TT: Collection Specialist:LIZETHHRadiology, Radiologist, MD - 09/22/2023 [place] [address] Ultrasound Report Signed Patient: PRINCESS CANTU MR#: [id number] : 1995 Acct:[id number] Age/Sex: 27 / F ADM Date: 07/10/23 Loc: FBCO Attending Dr: Willis Chen D.O. Ordering Physician: Willis Chen D.O. Date of Service: 07/10/23 Procedure(s): US OB growth Accession Number(s): [id number] cc: Willis Chen D.O.; Physician,Non-Staff Jake [facility] [place] [address] Patient Name: PRINCESS CANTU MRN: [id number]:[id number] date: 1995 Sex: F Assigned Patient Location: [facility] Current Patient Location[place] [facility] Accession/Order Number: [id number] Exam Date: 07/10/2023 14:31 Report Date: 07/11/2023 [...] Draper M.D. Signed By: 07/11/2349 DD/ TD/TT: Collection Specialist: JOSY HealthcareRadiology Study observation (narrative)[facility] InstituteUS OB GROWTHOrdered By: Radiologist Radiology on 65-91-5288KJUC Healthcare Work Phone: DHEA SERUMon 84-65-2215Qyijtzdjhybbrcruuxltoi (DHEA) 656 ng/uNMkbbwu67-876GnkMary Rutan HospitalComment on above:Performed By: #### DHEA. #### [facility] [address] [place] [address] Dr. Vish Mai-MULLERIAN HORMONEon 43-33-1073Nqkt-Mullerian Hormone (AMH) 4.47 ng/mLNormalMary Rutan HospitalComment on above:Result Comment: For assays employing antibodies, the possibility exists for interference by heterophile antibodies in the samples.1 1.Favio Correia. Interferences in Immunoassays - still a threat. Clin. Chem. 2000; 46: 8046-5455. This test was developed and its performance characteristics determined by [employer]. It has not been cleared or approved by the Food and Drug Administration. Reference Range: Females 26 - 30y: 1.03 - 11.10 Median 4.20 AMH concentrations of >= 1.06 ng/mL is correlated with a better response to ovarian stimulation, produced more retrievable oocytes and higher odds of live according to Ryaner et al. Fertility and Sterility. 2010: 94:5624-9899. The current AMH test method correlates with [...] AMH-secreting ovarian tumor.Performed By: #### LBCLH #### [facility] [address] [place] [address] Dr. Vish Olivas-SULFATEon 51-99-4065ZFYZ-Omefyuc055.0 ug/dLCritically high 84.8-378.0Mary Rutan HospitalComment on above:Performed By: #### LBCLH #### [facility] [address] [place] [address] Dr. Vish CardonaTRADIOLon 65-56-2199Xivcblkmc95.3 pg/mLNormalMary Rutan HospitalComment on above:Result Comment: Adult Female: Follicular phase 12.5 - 166.0 Ovulation phase 85.8 - 498.0 Luteal phase 43.8 - 211.0 Postmenopausal <6.0 - 54.7 1st trimester 215.0 - >4300.0 Ele ECLIA methodologyPerformed By: #### ESTRADI #### [facility] [address] [place] [address] Dr. Vish Monroy 54-79-0162AIG4.1 mIU/mLNormalMary Rutan HospitalComment on above:Result Comment: Adult Female: Follicular phase 3.5 - 12.5 Ovulation phase 4.7 - 21.5 Luteal phase 1.7 - 7.7 Postmenopausal 25.8 - 134.8Performed By: #### LBCFSH #### [facility] [address] [place] [address] Dr. Vish BrownLUTEINIZING HORMONE (LH)on 89-58-2676JX1.5 mIU/mLNormalMary Rutan HospitalComment on above:Result Comment: Adult Female: Follicular phase 2.4 - 12.6 Ovulation phase 14.0 - 95.6 Luteal phase 1.0 - 11.4 Postmenopausal 7.7 - 58.5Performed By: #### LBCLH #### [facility] [address] [place] [address] Dr. Vish BrownPROGESTERONEon 33-47-0428Ftpzjkiqzgkw1.8 ng/mLNormalMary Rutan HospitalComment on above:Result Comment: Follicular phase 0.1 - 0.9 Luteal phase 1.8 - 23.9 Ovulation phase 0.1 - 12.0 First trimester 11.0 - 44.3 Second trimester 25.4 - 83.3 Third trimester 58.7 - 214.0 Postmenopausal 0.0 - 0.1Performed By: #### PROGES #### [facility] [address] [place] [address] Dr. Vish Carrillo AUTO DIFFon 05-89-9489IUQQ #0.0 103/ulNormal0.0-0.1Mary Rutan HospitalComment on above:Performed By: #### LBCLH #### [facility] [address] [place] [address] Dr. Vish BrownBasophils/100 WBC (Bld)0.5 %Normal0.2-2.0[facility] Comment on above:Performed By: #### LBCLH #### [facility] [address] [place] [address] Dr. Vish Layton #0.3 103/ulNormal0.0-0.7The [facility] NorthComment on above: Performed By: #### LBCLH #### [facility] [address] [place] [address] Dr. Vish Haqosinophils/100 WBC (Bld)4.0 %Normal0.9-7.0[facility] Comment on above:Performed By: #### LBCLH #### [facility] [address] [place] [address] Dr. Yilan ChangErythrocyte distribution width (RBC) [Ratio]12.0 %Aouupr84.0-15.0 The [facility] NorthComment on above:Performed By: #### LBCLH #### [facility] [address] [place] [address] Dr. Vish BrownHematocrit (Bld) [Volume fraction]39.1 %Ntqwze11.0-48.0The [facility] NorthComment on above:Performed By: #### LBCLH #### [facility] [address] [place] [address] Dr. Vish BrownHemoglobin (Bld) [Mass/Vol]13.0 g/wVAipqld04.0-16.0The [facility] NorthComment on above:Performed By: #### LBCLH #### [facility] [address] [place] [address] Dr. Vish Lawson #0.02 10e3/ulNormal0.00-0.03The [facility] NorthComhurley medical center on above:Performed By: #### LBCLH #### [facility] [address] [place] [address] Dr. Vish Lawson %0.3 %Normal0.0-0.5The [facility]Com[facility] medical center on above: Performed By: #### LBCLH #### [facility] [address] [place] [address] Dr. Vish AvilezH #2.5 103/ulNormal1.2-3.8The [facility]Com[facility] medical center on above:Performed By: #### LBCLH #### [facility] [address] [place] [address] Dr. Vish Jaffemphocytes/100 WBC (Bld)32.4 %Dvillv76.5-60.0The [facility] NorthComment on above:Performed By: #### LBCLH #### [facility] [address] [place] [address] Dr. Vish BrownMANUAL DIFF REQNONormalThe [facility] NorthComment on above: Performed By: #### LBCLH #### [facility] [address] [place] [address] Dr. Vish Smith (RBC) [Entitic mass]29.9 cvCkceht13.7-34.0The [facility] NorthComment on above:Performed By: #### LBCLH #### [facility] [address] [place] [address] Dr. Vish Smith (RBC) [Mass/Vol]33.2 g/tHComaqh91.9-35.2The Dallas HospitalComment on above:Performed By: #### LBCLH #### [facility] [address] [place] [address] Dr. Vish Smith (RBC) [Entitic vol]89.9 gEImzipe83.0-99.0The [facility] NorthComment on above:Performed By: #### LBCLH #### [facility] [address] [place] [address] Dr. Vish Power #0.6 103/ulNormal0.3-0.8The [facility] NorthComment on above:Performed By: #### LBCL #### [facility] [address] [place] [address] Dr. Vish Vigilocytes/100 WBC (Bld)7.4 %Normal1.7-12.0The [facility] Comment on above:Performed By: #### LBCL #### [facility] [address] [place] [address] Dr. Vish Pulliam #4.3 103/ulNormal1.4-6.5The [facility] NorthComment on above:Performed By: #### LBCLH #### [facility] [address] [place] [address] Dr. Vish Lamarutrophils/100 WBC (Bld)55.4 %Ecxesu84.0-75.0The [facility] NorthComment on above:Performed By: #### LBCLH #### [facility] [address] [place] [address] Dr. Vish Madisonlet mean volume (Bld) [Entitic vol]9.0 fLCritically low 9.5-13.5The [facility] NorthComment on above:Performed By: #### LBCLH #### [facility] [address] [place] [address] Dr. Vish BrownPLT277 103/vnSnhhgq567-996Ymc [facility] NorthComment on above: Performed By: #### LBCLH #### [facility] [address] [place] [address] Dr. Vish BrownRBC4.35 106/ulNormal4.20-5.40The [facility] NorthComment on above:Performed By: #### LBCLH #### [facility] [address] [place] [address] Dr. Vish BrownWBC7.7 103/ulNormal4.0-11.0The [facility] NorthComment on above: Performed By: #### LBCLH #### [facility] [address] [place] [address] Dr. Vish BrownFRIRENA T4on 22-74-2162Bjgx T4 [Mass/Vol]1.08 ng/dLNormal0.76-1.46 The [facility] NorthComment on above:Performed By: #### FT4 #### [facility] [address] [place] [address] Dr. Vish BrownGLYCOHEMOGLOBIN A1Con 74-81-2686ABS RECOMMENDATIONSEE BELOWNormal The [facility]Comhur[facility] center on above:Result Comment: ADA RECOMMENDED LIMIT 4.0 - 6.0 ADA THERAPEUTIC TARGET < 7.0 ACTION SUGGESTED > 7.0Performed By: #### A1C #### [facility] [address] [place] [address] Dr. Vish BrownGlucose [Mass/Vol]94 mg/dLNormalThe [facility]Comhur[facility] center on above:Performed By: #### A1C #### [facility] [address] [place] [address] Dr. Vish BrownHbA1c (Bld) [Mass fraction]4.9 %Normal4.5-6.2The [facility] NorthComment on above:Performed By: #### A1C #### [facility] [address] [place] [address] Dr. Vish BrownPREBhargav QUANT HCGon 47-65-1287VOW QUANT<1NormalThe [facility] Comment on above:Performed By: #### PREGQNT, TSH #### [facility] [address] [place] [address] Dr. Vish WesleyG RANGESMercy Health Springfield Regional Medical CenterComment on above: Result Comment: 5-50 0.2-1 WEEK 50-500 1-2 WEEKS 100-5,000 2-3 WEEKS 500-10,000 3-4 WEEKS 1,000-50,000 4-5 WEEKS 10,000-100,000 5-6 WEEKS 15,000-200,000 6-8 WEEKS 10,000-100,000 2-3 MONTHSPerformed By: #### PREGQNT, TSH #### [facility] [address] [place] [address] Dr. Vish Boo 76-35-1359EUV2.030 uIU/mLNormal0.358-3.740Mary Rutan HospitalComment on above:Performed By: #### PREGQNT, TSH #### [facility] [address] [place] [address] Dr. Vish Massey 19-49 Yearson 31-04-9965RK 19-49 YearsDiagnoses/Problems Health Maintenance/Risks Encounter for preventive [...] Services - Lab To Draw (Blood Test); Due:[id number];Ordered; For:Benign essential hypertension; Ordered By:Koffi Uriarte; Provider [...] alcohol (more content not included)...NormalUH TouchworksTobacco Screening.on 34-64-0932Flmnc depression screening gnbaopngqcRoSN-UXUJ-[place] Work Phone: Fall risk assessmenta) No falls within the last year OY-ASPB-LcxzKowloonia Work Phone: Tobacco use status CPHSb) TvDV-ACFP-XiwgKowloonia Work Phone: b-HCG SerPl-aCncon 07-78-2165QJL.beta subunit Qn m[IU]/mLNormal<5.0[facility] on above:Order Comment: Specimen Type: BLOOD SPECIMENOrdering Facility: [facility] Address:[address] [place], [place] [address]Result Comment: Negative Performed By: #### GCCT #### [place] [address] TDFJXVOZR VAGINOSIS AMPLIFICATIONon 76-74-2530Zhxblvrhiwlmc crispatus+gasseri+jensenii + Gardnerella vaginalis + Atopobium vaginae rRNA HUMERA+probeQl (Vag fld)NegativeNormalNegative for bacterial vaginosisCHolzer Hospital on above:Order Comment: Specimen Type: SWAB [facility] Address: [address] [place], [place] [address]Performed By: #### CVTV, BVAMP #### [facility] CLIA [id number] [address] [place], [place] [address]C. trachomatis+N. gonorrhoeae DNA HUMERA+probe Ql (Unsp spec)on 04-16-2022. trachomatis DNA HUMERA+probe Ql (Unsp spec)NegativeNormalNegative for Chlamydia trachomatis by amplificatonCHolzer Hospital on above:Order Comment: Specimen Type: SWAB [facility] Address: [address] [place], [place] [address]Performed By: #### CVTV, BVAMP #### [facility] CLIA [id number] [address] [place] [address] OF MARSHALLESE. gonorrhoeae DNA HUMERA+probe Ql (Unsp spec)NegativeNormalNegative for Neisseria gonorrhoeae by amplification [facility] on above:Order Comment: Specimen Type: SWAB [facility] Address: [address] [place] [address]Performed By: #### CVTV, BVAMP #### [facility] CLIA [id number] [address] [place] [address] [place] AMERICACANDIDA / TRICHOMONAS AMPLIFICATIONon 49-25-2116ANRDTMY / TRICHOMONAS AMPLIFICATIONCANDIDA SPECIES GROUP RNA: Negative for Mitch species MITCH GLABRATA RNA: Negative for Mitch glabrata TRICH VAG AMPLIFICATION RNA: Negative for Trichomonas vaginalis by amplificationBlanchard Valley Health System on above:Performed By: #### CVTV, BVAMP #### [facility] CLIA [id number] [address] [place] [address] [place] OF AMERICACNCOon 73-38-0165UMRFDikcxm Text Letter TextNoUK HealthcareCNOVon 08-24-8212JLDRKpmpdd Visit ([facility] PRINCESS CANTU ([id number]) 1995 F Date Time Provider Department 04/16/22 [...] 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 IBrendan, have reviewed this information as documented for accuracy and performed all elements of history taking, and edited the record as necessary. 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 #:[id number] BACTERIAL VAGINOSIS AMPLIFICATION [SQBVAMP] Order #: [id number]. #:[id number] GC/CHLAMYDIA DNA DET [SQGCCAMP] Order #: [id number]. #:[id number] SYPHILIS TOTAL W/REFLEX [SQSYPHTX] Order #: [id number] FUTURE HIV 1 2 COMBO(AG/AB),WITH REFLEX TO DIFFERENTIATION [SQHIV12] Order #: [id number] FUTURE HEP C AB IA W/CONF SCRN [TNCKRF6G] Order #: [id number] FUTURE HEP B SURF AG SCRN [SQHBSAG] Order #: [id number] FUTURE Prescriptions as of 04/16/2022 - lamoTRIgine [...] medication Encounter Status:Closed by BRENDAN BLANKENSHIP on 04/16/22NoUK HealthcareHBV surface Ab IA Ql (S)on 07-88-8160DTQ surface Ag Ql (S)Negative NormalNegativeC[facility] Clinic [facility] on above:Order Comment: Specimen Type: BLOOD SPECIMENOrdering Facility: [facility] Address:[address] [place], [place] [address]Performed By: #### GCCT #### [place] [phone] Ab Ser Qlon 08-17-9488HWF Ab Ql (S)NegativeNormalNegative [facility] on above:Order Comment: Specimen Type: BLOOD SPECIMEN [facility] Address: [address] [place], [place] [address]Result Comment: The result suggests no evidence of active infection with Hepatitis C virus. Should recent infection be suspected, repeat testing may be considered 4-6 weeks after this draw.Performed By: #### 11882-2 #### [facility] CLIA [id number] [address] [place] [address] [place] OF AMERICAHIV 1+2 Ab IA Qlon 25-54-2292ISP 1 and 2 Ab IA.rapid NomBlanchard Valley Health System on above:Order Comment: Specimen Type: BLOOD SPECIMENOrdering Facility: [facility] Address:[address] [place], [place] [address]Result Comment: Test not indicated.Performed By: #### GCCT #### [place] [address] NVD 1+2 Ab+HIV1 p24 Ag IA QlNon-ReactiveNormalNonreactiveC[facility] Clinic [facility] on above:Order Comment: Specimen Type: BLOOD SPECIMENOrdering Facility: [facility] Address:[address] [place], [place] [address]Performed By: #### GCCT #### [place] [address] XCAVZWAxifcuPbjkglggp Clinic ClevelandComment on above:Order Comment: Specimen Type: BLOOD SPECIMENOrdering Facility: [facility] Address:[address] [place], [place] [address]Result Comment: No evidence of HIV-1 or HIV-2 infection. Should recent infection be suspected, repeat testing may be considered 2-3 weeks after this draw. [place] Rev. Code 3701.243(E): This information has been [...] results or diagnoses.Performed By: #### GCCT #### [place] [address] Mngnvj and Treponema pallidum IgG and IgM [Interp]on 04-16-2022 SYPHILIS INTERPRETATIONCannot exclude recent Treponemal infection if specimen collected within 7-10 days after appearance of suspect lesions or 2-3 weeks after an exposure. Clinical correlation is required.NormalC[facility] Clinic [facility] Hospital on above:Order Comment: Specimen Type: BLOOD SPECIMENOrdering Facility: [facility] Address:[address] [place], [place] [address]Performed By: #### GCCT #### [place] [phone]. pallidum IgG+IgM IA Ql (S)Non-ReactiveNormalNonreactiveC[facility] on above:Order Comment: Specimen Type: BLOOD SPECIMENOrdering Facility: [facility] Address:[address] [place], [place] [address]Performed By: #### GCCT #### [place] [address] LHRVFNUETOygolmd By: SYSTEM SYSTEM on 06-37-0085KCP.beta subunit Qn1 m[IU]/mLNormal1 - 3 mIU/mLFTMC RemisolCNPNon 53-35-1726DPRNJiigiwyse ([facility] PRINCESS CANTU ([id number]) 1995 F Date Time Provider Department 03/24/22 [...] Fully Assessed Reason for Visit: Bleeding With [24713] Primary Visit Diagnosis:Bleeding in early [O20.9] Order(s):HCG QUANTITATIVE [SQHCGQT] Order #: [id number] FUTURE Prescriptions as of 03/24/2022 - metroNIDAZOLE [...] 07/04/2021 Encounter Status:Closed by BRENDAN SOUZA on 03/24/22[facility] 35-66-9487NSWFDvdhcgvxp (OBGYCC) PRINCESS CANTU ([id number]) 1995 F Date Time Provider Department 03/19/22 [place] DWYER [facility] During your visit today, we [...] 07/04/2021 Encounter Status:Closed by MARY ONOFRE on [facility]/19/22[facility])on 25-37-8452Zbtmpt-up visitProvider Impressions 1. Seizure: Stable. Last episode [...] or bowel/bladder incontinence. She was taken to [facility] in [place]. She had lab work and a CT [...] DAILY. Vitals Vital Signs Recorded: 24Dec2021 11:32AM Fpdrhkehlhk74.1 F Heart Rate54 Acodbbga543 Nbviqamak82 Height5 ft 9 in Owsxxu563 lb 1.6 oz BMI Ujazhrgdzr23.03 kg/m2 BSA Calculated2.11 Tobacco Useb) No Fall Screeninga) No falls within the last year O2 Rpzmrlyejt517, RA Physical Exam Constitutional: General appearance: no [...] 2021 11:37AM EST (Author) Normal TouchworksTobacco Screening.on 85-90-8231Nrxx risk assessmenta) No falls within the last vtaaBF-Wrxqsxzzv-Lfemsent SJW DO Work Phone: Tobacco use status CPHSb) QePM-Zjiptrqpi-Rbqxnoxx SJW DO Work Phone: Office Visit (Primary [...] Known Drug Allergies Vitals Vital Signs Recorded: 98Fbt2950 01:08PM Temperature: 97 F Heart Rate: 70 [...] 17 2021 1:34PM EST (Author)NormalUH TouchworksTobacco Screening.on 86-07-1355Ucmvd depression screening lyrouwwrgzLzTV-VSAX-[place] Work Phone: Fall risk assessmenta) No falls within the last year FN-WGMK-SbgkKowloonia Work Phone: Tobacco use status CPHSb) SaWG-CPNF-VozlKowloonia Work Phone: bact Vag Amplificationon 38-12-8897Kgzt Vag AmplificationPositiveCritically abnormalNegative for bacterial vaginosis [facility] MiamisburgComment on above:Performed By: #### GCCT #### [facility] [address] [place], [place] [address] JRNYor 79-93-1527SRNITuulav Visit ([facility] PRINCESS CANTU ([id number]) 1995 F Date Time Provider Department 09/09/21 [...] 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 Portions of this record were documented by the Renewals Specialist. I, Brendan Blankenship, have reviewed this information as documented for accuracy and performed all elements of history taking, and edited the record as necessary. 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 [...] Order(s):MITCH / TRICHOMONAS AMPLIFICATION [SQCVTV] Order #: [id number] BACTERIAL VAGINOSIS AMPLIFICATION [SQBVAMP] Order #: [id number] GC/CHLAMYDIA DNA DET [SQGCCAMP] Order #: [id number] metroNIDAZOLE (FLAGYL) 500 mg tabletTake 1 tablet [...] Letter Text Encounter Status:Closed (more content not included)...NormalKettering Health MiamisburgCandida Trich Amplon 62-80-4567Rpderlg glabrata RNANegativeNormal NegativeKettering Health MiamisburgComment on above:Performed By: #### GCCT #### [place] [address] Ycuvwtu sp group RNANegativeNormalNegativeKettering Health Miamisburg Comment on above:Performed By: #### GCCT #### [place] [address] Rxhshmktnzf RNANegativeNormalCWayne HospitalComment on above:Performed By: #### GCCT #### [place] [phone]/Chlamydia Amplifon 01-00-9648Rndlbletk AmplifNegativeNormal [facility] MiamisburgComment on above:Performed By: #### GCCT #### [place] [address] XW AmplificationNegativeNormalCWayne HospitalComment on above:Performed By: #### GCCT #### [place] [phone]/Chlam Amp SourceCervixNormalClevelFormerly Park Ridge HealthComment on above:Performed By: #### GCCT #### [facility] [place] [id number] [phone] Vag Amplificationon 69-16-0109Kmak Vag AmplificationNegative NormalNegative for bacterial vaginosisCWayne HospitalComment on above:Performed By: #### CVTV, BVAMP #### [facility] CLIA [id number] [address] [place] [address] OF TOLEDO HOSPITALCNOVon 89-89-7975JCLFVkfndz Visit (OBGYCC) PRINCESS CANTU ([id number]) 1995 F [facility] Date Time Provider Department 07/04/21 4:00 PM [facility] [facility] During your visit today, we recorded the following information about you: Pulse Blood pressure Weight Height 74/minute 131/86 95.7 kg 1.727 m Last Period 06/07/21 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 APRN.KILN FIRER 07/04/2021 4:39 PM Signed Princess is a [...] Ectopic0 Multiple0 Live Births0 Comment: Menarche 10 Hospital Fellow History LMP: 06/07/2021 (Exact Date), Having periods Age at Menarche: Age at First : Age at Menopause: Hospital Fellow History Comments: Sexual Activity: Yes; Male; same [...] external genitalia normal, normal Bartholin's glands, urethra, Lake[place]'s glands, no vulvar lesions, no cervical lesions, [...] type of detergents for washing undergarments, wiping girwl-ca-yido, sleep in loose shorts without underwear, shower [...] health screening schedule is recommended by the [place] [employer] (ACOG). Some of these tests may be ordered or performed by your primary care doctor. Pap test screening The pap test loo (more content not included)...NormalKettering Health Miamisburg Mitch Trich Amplon 00-76-4016Pjfnftz glabrata RNANegativeNormalNegative [facility] MiamisburgComment on above:Performed By: #### CVTV, BVAMP #### [facility] CLIA [id number] [address] [place] [address] [place] OF AMERICACandida sp group RNANegative NormalNegativeKettering Health MiamisburgComment on above:Performed By: #### CVTV, BVAMP #### [facility] CLIA [id number] [address] [place] [address] [place] OF AMERICATrichomonas RNANegative NormalKettering Health MiamisburgComment on above:Performed By: #### CVTV, BVAMP #### [facility] CLIA [id number] [address] [place] [address] STATES OF AMERICAGC/Chlamydia Amplifon 75-55-1933Fmaqbhhse AmplifNegativeNormalCWayne HospitalComment on above:Performed By: #### GCCT #### [place] [phone] AmplificationNegativeNormalCWayne HospitalComment on above:Performed By: #### GCCT #### [place] [phone]/Chlam Amp SourceCervixNormalCWayne HospitalComment on above:Performed By: #### GCCT #### [place] [phone] Screening.on 90-31-1457Mkun risk assessmenta) No falls within the last ipuvKQ-Fgxngzpog-Idlopvdw [employer] Work Phone: Tobacco use status CPHSb) ZxUB-Zllvygauk-Lpkccakm [employer] [place] Work Phone: GC + Chlamydia By Amplified Detectionon 05-20-2021. trachomatis rRNA HUMERA+probe Ql (Unsp spec)NufdghorNqdxyopjQW-WBFV-[place] Work Phone: comment on above:The APTIMA Combo 2 assay is FDA- approved for Chlamydia trachomatis and Neisseria gonorrhoeae testing on female endocervical and vaginal swabs, ThinPrep liquid pap samples, male urine samples and urethral swabs. Performance characteristics for Chlamydia trachomatis and Neisseria gonorrhoeae testing on specific zew-JTV-arsywhel sample types (female urine samples) have been validated by [facility]. This laboratory is certified by CLIA to perform high complexity evie ting. Samples from all other sites are not validated for this method.N. gonorrhoeae rRNA HUMERA+probe Ql (Unsp spec)BlapgtryVqtpejkgHL-XYIK-[place] Work Phone: comment on above:SOURCE: Urine The APTIMA Combo 2 assay is FDA-approved for Chlamydia trachomatis and Neisseria gonorrhoeae testing on female endocervical and vaginal swabs, ThinPrep liquid pap samples, male urine samples and urethral swabs. Performance characteristics for Chlamydia trachomatis and Neisseria gonorrhoeae testing on specific ief-HRS-svggkuzn sample types (female urine samples) have been validated by [facility]. This laboratory is certified by CLIA to perform high complexity testing. Samples from all other sites are not validated for this method.TSHon 79-60-0467MOA Qn2.30 m[IU]/LNormal0.44 - 3.98St. [facility] CenterComment on above:Result Comment: TSH testing is performed using different testing methodology at [facility] than at other [facility]. Direct result comparisons should only be made within the same method.Performed By: #### TSH2 #### [address] [place], [place] [address]NBQ - Thyroid Stimulating Hormone, Serumon 14-24-8678CHC Qn 2.30 m[IU]/LSee ZxwhcBE-BHHU-[place] Work Phone: comment on above:Reference Range: 0.44 - 3.98 TSH testing is performed using different testing methodology at [facility] than at other [facility]. Direct result comparisons should only be made within the same method.Tobacco Screening.on 11-51-4029Pwwr risk assessment a) No falls within the last asmhXN-IIWM-[place] Work Phone: Tobacco use status CPHSb) NsZB-OGHE-[place] Work Phone: cBCon 22-15-6046Tdyctypsjcf distribution width (RBC) [Ratio]13.2 %Beoswr07.5 - 14.5St. [facility] Medical CenterComment on above:Performed By: #### CBC #### [address] [place], [place] [address]Pmpxhjnoxl (Bld) [Volume fraction]39.5 %Zcljwr85.0 - 46.0St[facility] Medical CenterComment on above:Performed By: #### CBC #### [address] [address]Tjpuxxebka (Bld) [Mass/Vol]13.0 g/zORtkjnm45.0 - 16.0St[facility] Medical CenterComment on above:Performed By: #### CBC #### [address] [address]XTOB (RBC) [Mass/Vol]32.9 g/kJLiaxqy99.0 - 36.0St[facility] Medical CenterComment on above:Performed By: #### CBC #### [address] [address]AMB (RBC) [Entitic vol]91 aBKgaqwj67 - 100St[facility] Medical CenterComment on above:Performed By: #### CBC #### [address] [address]HBGDMVRPR RBC0.0 /100 WBCNormal0.0 - 0.0St. [facility] Medical CenterComment on above:Performed By: #### CBC #### [address] [address]Rkqjxrxtf (Bld) [#/Vol]235 10*3/vKZxgffy462 - 450St. [facility] Medical CenterComment on above:Performed By: #### CBC #### [address] [address]ICL3.33 x10E12/LNormal4.00 - 5.20[facility] Comment on above:Performed By: #### CBC #### [address] [address]BHE (Bld) [#/Vol]5.8 10*3/uLNormal4.4 - 11.3St. [facility] Medical CenterComment on above:Performed By: #### CBC #### [address] [address]ERSQQOGXCIXRX PANELon 06-95-0648Siiihaa [Mass/Vol]4.7 g/dL Normal3.4 - 5.0St[facility] Medical CenterComment on above:Performed By: #### CMP #### [address] [place], [place] [address]GNU [Catalytic activity/Vol]53 U/XUdeama41 - 110St. [facility] Medical CenterComment on above:Performed By: #### CMP #### [address] [place], [place] [address]EBA [Catalytic activity/Vol]41 U/LNormal7 - 45St. [facility] Medical CenterComment on above:Result Comment: Patients treated with Sulfasalazine may generate falsely decreased results for ALT.Performed By: #### CMP #### [address] [address]Ipxdd gap [Moles/Vol]10 mmol/LErbubj40 - 20St[facility] Medical CenterComment on above:Performed By: #### CMP #### [address] [address]OOK [Catalytic activity/Vol]27 U/LNormal9 - 39St. [facility] Medical CenterComment on above:Performed By: #### CMP #### [address] [address]Rhiaqlmwn [Mass/Vol]0.6 mg/dLNormal0.0 - 1.2St. [facility] Medical CenterComment on above:Performed By: #### CMP #### [address] [address]Qntaiao [Mass/Vol]9.5 mg/dLNormal8.6 - 10.3St. [facility] Medical CenterComment on above:Performed By: #### CMP #### [address] [address]Unzgeyrq [Moles/Vol]105 mmol/TMstroa13 - 107St[facility] Medical CenterComment on above:Performed By: #### CMP #### [address] [address]Skbnsjfozf [Mass/Vol]0.93 mg/dLNormal0.50 - 1.05St. [facility] Medical CenterComment on above:Performed By: #### CMP #### [address] [place], [place] [address]LHG-LIPPERT AM.>60Normal>60St. [facility] Medical CenterComment on above:Result Comment: CALCULATIONS OF ESTIMATED GFR ARE PERFORMED USING THE MDRD STUDY EQUATION FOR THE IDMS-TRACEABLE CREATININE METHODS. CLIN CHEM 2007;53:766-72Performed By: #### CMP #### [address] [place], [place] [address]ZIM-ONX AM.>60Normal>60St[facility] Medical CenterComment on above:Performed By: #### CMP #### [address] [place], [place] [address]Kxcprlo [Mass/Vol]94 mg/wYGiucsh38 - 99[facility] Comment on above:Performed By: #### CMP #### [address] [place], [place] [address]UAM3 (Bld) [Moles/Vol]28 mmol/HDuyoln48 - 32St[facility] Medical CenterComment on above:Performed By: #### CMP #### [address] [place], [place] [address]Ldapzhwbd [Moles/Vol]4.4 mmol/LNormal3.5 - 5.3St[facility] Medical CenterComment on above:Performed By: #### CMP #### [address] [place], [place] [address]Hnmfeip [Mass/Vol]7.3 g/dLNormal6.4 - 8.2St[facility] Medical CenterComment on above:Performed By: #### CMP #### [address] [place], [place] [address]Cvecwa [Moles/Vol]139 mmol/CPdjdfp914 - 145St. [facility] Medical CenterComment on above:Performed By: #### CMP #### [address] [place], [place] [address]Icuk nitrogen [Mass/Vol]13 mg/dLNormal6 - 23St. [facility] Medical CenterComment on above:Performed By: #### CMP #### [place] [address] [facility] [place], [place] [address]Dvsbanklyytq 34-61-1491Sstkomhhzp (Bld) [Volume fraction]39.5 %See TdsjtYW-Nubkmaorf-Hzicqdhw SJW DO Work Phone: Comment on above:Reference Range: 36.0 - 46.0 Hemoglobin (Bld) [Mass/Vol]13.0 g/dLSee GesveLH-Rqbomsoxp-Adtonkir SJW DO Work Phone: Comment on above:Reference Range: 12.0 - 16.0MCV (RBC) [Entitic vol]91 fL80 - 920UC-Adbmnsfgo-Briichju SJW DO Work Phone: Platelets (Bld) [#/Vol]235 {x10E9/L}150 - 450 MN-Rwcwvgdao-IqyhzmueHouse of the Good Samaritan DO Work Phone: RBC (Bld) [#/Vol]4.33 {x10E12/L}See Below DD-Hpuxeaokm-AfhnqrqgHouse of the Good Samaritan DO Work Phone: Comment on above:Reference Range: 4.00 - 5.20WBC (Bld) [#/Vol]5.8 {x10E9/L}4.4 - 11.3CL-Aurgblmam-Iizziemi SJW DO Work Phone: WBC (Bld) [#/Vol]0.0 {/100_WBC}0.0 - 0.0 BQ-Wqkbwepxd-GmcmfjhfHouse of the Good Samaritan DO Work Phone: LAMOTRIGINE- LAMICTALon 99-43-8586VDMGCKSEZCJ- LAMICTAL6.4 ug/mLNormal2.5 - 15.0[facility] – SulphurComment on above: Performed By: #### LAMOT #### [facility] [address] [place], [place] [address]Qaobnvklioa Level, Serumon 87-83-9256Xeybzxmnajw [Mass/Vol] 6.4 ug/mL2.5 - 15.8AA-Uybrkuzpz-Shboaidv SJW DO Work Phone: [phone] Panelon 08-28-0110EAD [Catalytic activity/Vol]53 U/L33 - 314YE-Qqwhsywsi-Iixlnqre SJW DO Work Phone: [phone] gap [Moles/Vol]10 mmol/L10 - 20 NJ-Epkviyfbx-Xofmtgur SJW DO Work Phone: [phone] [Mass/Vol]0.6 mg/dL0.0 - 1.2 FF-Epzmvfwbf-Wlerbslw SJW DO Work Phone: [phone] [Mass/Vol]9.5 mg/dL8.6 - 10.3 ON-Hlixofbxk-Kmqoqelr SJW DO Work Phone: [phone] [Moles/Vol]105 mmol/L98 - 107 OL-Rieycvoha-Qytuykgn SJW DO Work Phone: [phone] [Moles/Vol]28 mmol/L21 - 38OB-Wjcavocxl-Xipxbzfy SJW DO Work Phone: [phone] [Mass/Vol]0.93 mg/dLSee Below VE-Njtzfyscw-Jlhlfjct SJW DO Work Phone: Comment on above:Reference Range: 0.50 - 1.05Glucose [Mass/Vol]94 mg/dL74 - 81VY-Vaqvawatw-Idubiwyk SJW DO Work Phone: [phone] [Moles/Vol]4.4 mmol/L3.5 - 5.3 ET-Pdrdqwvlb-Qgyfdxas SJW DO Work Phone: [phone] [Mass/Vol]7.3 g/dL6.4 - 8.2 PL-Tqgjnnddi-Wgzshrdm SJW DO Work Phone: [phone] [Moles/Vol]139 mmol/L136 - 145 ZW-Ntfyewvxc-Yrkuoyfz SJW DO Work Phone: [phone] nitrogen [Mass/Vol]13 mg/dL6 - 23 GC-Bokputbby-Rfqmaxcw SJW DO Work Phone: [phone] 07-83-1753Yabkiti BCP dye [Mass/Vol]4.7 g/dL 3.4 - 5.6YF-Hrypzwwee-FgkbdtkjMercy Hospital [facility] DO Work Phone: ALT With P-5'-P [Catalytic activity/Vol]41 U/L7 - 45 [facility] DO Work Phone: Comment on above:Patients treated with Sulfasalazine may generate falsely decreased results for ALT.AST With P-5'-P [Catalytic activity/Vol]27 U/L9 - 00VD-Vlocamumk-RiizdbzdMercy Hospital Northwest [place] DO Work Phone: Erythrocyte distribution width (RBC) [Ratio]13.2 %See DxcsnUQ-Cdzdsthgq-Tpynjhwo SJW DO Work Phone: Comment on above:Reference Range: 11.5 - 14.5MCHC (RBC) [Mass/Vol]32.9 g/dLSee YycouJM-Ccdzqiobb-Seomhmsr SJW DO Work Phone: Comment on above:Reference Range: 32.0 - 36.0>60>60 [facility] DO Work Phone: Comment on above:CALCULATIONS OF ESTIMATED GFR ARE PERFORMED USING THE MDRD STUDY EQUATION FOR THE IDMS-TRACEABLE CREATININE METHODS. CLIN CHEM 2007;53:766-72MRI BRAIN W WO CONTRASTon [id number] are no acute intracranial changes, no evidence of ischemia or hemorrhage. There are no regions of signal abnormality. There are no areas of abnormal enhancement after contrast administration.[facility], [place]EXAMINATION: MRI BRAIN W WO [...] limits. The calvarium and soft tissues are unremarkable.[facility], [place], [facility] Incoming Radiant Results From [place]he[place]/Stio - 05/09/2020 3:02 PM EDT EXAMINATION: MRI [...] no areas of abnormal enhancement after contrast administration.[facility], [facility] BRAIN W WO CONTRASTEXAMINATION: MRI [...] Signed by: David Winter MD 05/09/20 Final resultNormThe Memorial Hospital With Platelet and Differentialon [id number] (Bld) [#/Vol]0.1 10*3/uLNormal0.0-0.2Mprotestant hospitaly [facility] Medical CenterComment on above:Performed By: #### CBCWD #### [facility] [address] [place] [address] Jxyvzlypt/100 WBC (Bld)0.4 %NormalParkwood HospitalComment on above:Performed By: #### CBCWD #### [facility] [address] [place] [address] Gufqxksrewx (Bld) [#/Vol]0.5 10*3/uLNormal0.0-0.7Parkwood HospitalComment on above:Performed By: #### CBCWD #### [facility] [address] [place] [address] Znkvardyuce/100 WBC (Bld)4.2 %State mental health facilityComment on above:Performed By: #### CBCWD #### [facility] [address] [place] [address] Sgequwodxoz distribution width (RBC) [Ratio]12.5 %Whurfi88.5-14.5 Parkwood HospitalComment on above:Performed By: #### CBCWD #### [facility] [address] [place] [address] Lunnfchekz (Bld) [Volume fraction]39.4 %Viqjby29.0-47.0Parkwood HospitalComment on above:Performed By: #### CBCWD #### [facility] [address] [facility] [address] [place] [address] Hvffzafxvh (Bld) [Mass/Vol]13.3 g/pMYtdyzj29.0-16.0Parkwood HospitalComment on above:Performed By: #### CBCWD #### [facility] [address] [place] [address] Xryjkxreair (Bld) [#/Vol]3.2 10*3/uLNormal1.0-4.8Parkwood HospitalComment on above:Performed By: #### CBCWD #### [facility] [address] [place] [address] Eriwixuipzr/100 WBC (Bld)26.9 %State mental health facilityComment on above:Performed By: #### CBCWD #### [facility] [address] [place] [address] WLN (RBC) [Entitic mass]29.8 joXbqlvk34.0-31.3MHocking Valley Community Hospital Comment on above:Performed By: #### CBCWD #### [facility] [address] [place] [address] GRIW (RBC) [Mass/Vol]33.8 %Yyvbyg77.0-37.0[facility] Comment on above:Performed By: #### CBCWD #### [facility] [address] [place] [address] WSR (RBC) [Entitic vol]88.4 yNZwphpi05.0-100.0[facility] Comment on above:Performed By: #### CBCWD #### [facility] [address] [place] [address] Zbgieebgq (Bld) [#/Vol]0.8 10*3/uLNormal0.2-0.8[facility] Comment on above:Performed By: #### CBCWD #### [facility] [address] [place] [address] Esmidvdwx/100 WBC (Bld)6.8 %NormalParkwood HospitalComment on above:Performed By: #### CBCWD #### [facility] [address] [place] [address] Uqyqwvycgwf (Bld) [#/Vol]7.3 10*3/uLCritically high1.4-6.5Parkwood HospitalComment on above:Performed By: #### CBCWD #### [facility] [address] [place] [address] Suecftmefuv/100 WBC (Bld)61.7 %State mental health facilityComment on above:Performed By: #### CBCWD #### [facility] [address] [place] [address] Qnfrdeeat (Bld) [#/Vol]314 10*3/rXFrubxn740-615Wfojd [facility] Comment on above:Performed By: #### CBCWD #### [facility] [address] [place] [address] XUN (Bld) [#/Vol]4.45 10*6/uLNormal4.20-5.40[facility] Comment on above:Performed By: #### CBCWD #### [facility] [address] [place] [address] KJM (Bld) [#/Vol]11.9 10*3/uLCritically high4.8-10.8Parkwood HospitalComment on above:Performed By: #### CBCWD #### [facility] [address] [place] [address] CB HEAD WO CONTRASTon [id number] HEAD WO CONTRASTCOMPARISON: No prior studies available [...] by: Jayce De Jesus DO 04/19/20 Final resultNormalParkwood HospitalComprehensive Metabolic Panelon 04-19-2020 Albumin [Mass/Vol]4.9 g/dLCritically high3.5-4.6MHocking Valley Community HospitalComment on above:Performed By: #### CMP #### [facility] [address] [place] [address] ZON [Catalytic activity/Vol]40 U/ZDsywjl83-830KkkeqParkwood Hospital Comment on above:Performed By: #### CMP #### [facility] [address] [place] [address] FWR [Catalytic activity/Vol]17 U/LNormal0-33[facility] Comment on above:Performed By: #### CMP #### [facility] [address] [place] [address] Pqcso gap [Moles/Vol]14 mmol/LNormal9-15Parkwood HospitalComment on above:Performed By: #### CMP #### [facility] [address] [place] [address] QPK [Catalytic activity/Vol]17 U/LNormal0-35[facility] Comment on above:Performed By: #### CMP #### [facility] [address] [place] [address] Knchsxzqp [Mass/Vol]mg/dLNormal0.2-0.7Parkwood HospitalComment on above:Performed By: #### CMP #### [facility] [address] [place] [address] Frkelfc [Mass/Vol]10.0 mg/dLCritically high8.5-9.9Parkwood HospitalComment on above:Performed By: #### CMP #### [facility] [address] [place] [address] Iigxnwyl [Moles/Vol]101 mmol/REdossj16-463FyhqiParkwood Hospital Comment on above:Performed By: #### CMP #### [facility] [address] [place] [address] OS8 [Moles/Vol]24 mmol/SAquszh25-24VrnrtParkwood HospitalComment on above:Performed By: #### CMP #### [facility] [address] [place] [address] Xmrhifcidl [Mass/Vol]0.87 mg/dLNormal0.50-0.90[facility] Comment on above:Performed By: #### CMP #### [facility] [address] [place] [address] DWC/1.73 sq M predicted among blacks MDRD (S/P/Bld) [Vol rate/Area] mL/min/{1.73_m2}Normal>60Parkwood HospitalComment on above:Result Comment: >60 mL/min/1.73m2 EGFR, calc. for ages 18 and older using the MDRD formula (not corrected for weight), is valid for stable renal function.Performed By: #### CMP #### [facility] [address] [place] [address] TCN/1.73 sq M.predicted MDRD (S/P/Bld) [Vol rate/Area] mL/min/{1.73_m2}Normal>60Parkwood HospitalComment on above:Result Comment: >60 mL/min/1.73m2 EGFR, calc. for ages 18 and older using the MDRD formula (not corrected for weight), is valid for stable renal function.Performed By: #### CMP #### [facility] [address] [place] [address] Kayfbquh (S) [Mass/Vol]3.1 g/dLNormal2.3-3.5[facility] Comment on above:Performed By: #### CMP #### [facility] [address] [place] [address] Vlrlyph [Mass/Vol]94 mg/jVAmolbj03-48QsnaxHocking Valley Community HospitalComment on above:Performed By: #### CMP #### [facility] [address] [place] [address] Vxeqdrsmt [Moles/Vol]3.9 mmol/LNormal3.4-4.9[facility] Comment on above:Performed By: #### CMP #### [facility] [address] [place] [address] Nhhixnu [Mass/Vol]8.0 g/dLNormal6.3-8.0Parkwood HospitalComment on above:Performed By: #### CMP #### [facility] [address] [place] [address] Ykaqqm [Moles/Vol]139 mmol/WSmjbsx735-343GrzbpParkwood HospitalComment on above:Performed By: #### CMP #### [facility] [address] [place] [address] Hkfn nitrogen [Mass/Vol]12 mg/dLNormmd6-20[facility] Comment on above:Performed By: #### CMP #### [facility] [address] [place] [address] Jrcecr Acidon 35-32-1769Kfknqjb [Moles/Vol]1.8 mmol/LNormal0.5-2.2 Parkwood HospitalComment on above:Performed By: #### LACID #### [facility] [address] [place] [address] Qcmbamqturk 95-01-6687Ebkmgafti251.8 ng/mLNECU Health [facility] Comment on above:Result Comment: Default Normal Ranges Female Male Non: 4.8-23.3 4.0-15.2Performed By: #### PROLA #### [facility] [address] [place] [address] Ngxgh HCG Qualitativeon 65-15-0251YVI.beta subunit QnNegativeNormal Parkwood HospitalComment on above:Performed By: #### SHCG #### [facility] [address] [place] [address] Ipcjihwxpu, reflex to cultureon 17-89-1546Nqqtb Reflexed to Culture Not IndicatedNormalParkwood HospitalComment on above:Performed By: #### UAR #### [facility] [address] [place] [address] Qbrrtvkbd Ql (U)NegativeNormalNegativeParkwood HospitalComment on above:Performed By: #### UAR #### [facility] [address] [place] [address] Ojkabbd (U)ClearNormalClearParkwood HospitalComment on above: Performed By: #### UAR #### [facility] [address] [place] [address] Rrtfi (U)YellowNormalStraw/YellParkwood HospitalComment on above: Performed By: #### UAR #### [facility] [address] [place] [address] Mmzglct Ql (U)NegativeNormalNegLodi Memorial HospitalComment on above:Performed By: #### UAR #### [facility] [address] [place] [address] Owdjjflajw Ql (U)Trace-intactNormalNegLodi Memorial Hospital Comment on above:Performed By: #### UAR #### [facility] [address] [place] [address] Jaywtkp Ql (U)NegativeNormalNegLodi Memorial HospitalComment on above:Performed By: #### UAR #### [facility] [address] [place] [address] Slxexpufj esterase Test strip Ql (U)NegativeNormalNegLodi Memorial HospitalComhurley medical center on above:Performed By: #### UAR #### [facility] [address] [place] [address] Fnnxquz Ql (U)NegativeNormalNegLodi Memorial HospitalComment on above:Performed By: #### UAR #### [facility] [address] [place] [address] xZ (U)6.0 [pH]Normal5.0-9.0Parkwood HospitalComment on above: Performed By: #### UAR #### [facility] [address] [place] [address] Kcvmtsl Ql (U)NegativeNormalNegLodi Memorial HospitalComment on above:Performed By: #### UAR #### [facility] [address] [place] [address] Ozorrcgx gravity (U) [Rel density]1.274Ltzabi7.005-1.03Parkwood HospitalComment on above:Performed By: #### UAR #### [facility] [address] [place] [address] Asbtnjpxwfvf Qn (U)0.2 {Alan'U}/dLNormal< 2.0[facility] Comment on above:Performed By: #### UAR #### [facility] [address] [place] [address] Dlvdp Microscopicon 25-42-0908Eaghlskidr cells LM Ql (Urine sed)0-2 NormalParkwood HospitalComment on above:Performed By: #### UMIC #### [facility] [address] [place] [address] CUC (U) [#/Vol]7-1Hmwdqe5-9XeogyHocking Valley Community HospitalComment on above: Performed By: #### UMIC #### [facility] [address] [place] [address] VBU (U) [#/Vol]3-7Mlziyn9-5MxkjnParkwood HospitalComment on above: Performed By: #### UMIC #### [facility] [address] [place] [address] LBT Auto Differentialon 21-51-7109Gtywavvbi (Bld) [#/Vol]0.1 10*3/uL 0 - 0.2 K/uLSelect Medical Specialty [facility], [facility]cc[facility]- [place], KYBasophils/100 WBC (Bld)0.4 %[facility]- [place], [place] Eosinophils (Bld) [#/Vol]0.5 10*3/uL0 - 0.7 K/uLSelect Medical Specialty [facility], [facility] [place] Eosinophils/100 WBC (Bld)4.2 %[facility]- [place], KYErythrocyte distribution width (RBC) [Ratio]12.5 %11.5 - 14.5 %[facility]- [place], KYHematocrit (Bld) [Volume fraction]39.4 %37 - 47 %[facility]- [place], KYHemoglobin (Bld) [Mass/Vol]13.3 g/dL 12 - 16 g/dLTrumbull Regional Medical Center Health- [place], KYInterpretation and review of laboratory results AbnormalSelect Medical [facility]ty [facility]- [place], KYLymphocytes (Bld) [#/Vol]3.2 10*3/uL1 - 4.8 K/uL [facility]- [place], KYLymphocytes/100 WBC (Bld)26.9 %[facility]- [place], KYMCH (RBC) [Entitic mass]29.8 pg27 - 31.3 pgTrumbull Regional Medical Center Health- [place], KYMCHC (RBC) [Mass/Vol]33.8 %33 - 37 %[facility]- [place], KYMCV (RBC) [Entitic vol]88.4 fL82 - 100 fLTrumbull Regional Medical Center Health- [place], KYMonocytes (Bld) [#/Vol]0.8 10*3/uL0.2 - 0.8 K/uLTrumbull Regional Medical Center Health- [place], KYMonocytes/100 WBC (Bld)6.8 %[facility]- [place], KYNeutrophils Absolute7.3 K/uL High1.4 - 6.5 K/uLTrumbull Regional Medical Center Health- [place], KYNeutrophils/100 WBC (Bld)61.7 %[facility]- [place], KYPlatelets (Bld) [#/Vol]314 10*3/uL130 - 400 K/uLTrumbull Regional Medical Center Health- [place], KYRBC (Bld) [#/Vol]4.45 10*6/uLTrumbull Regional Medical Center [facility]- [place], KYWBC (Bld) [#/Vol]11.9 10*3/uL High4.8 - 10.8 K/uLTrumbull Regional Medical Center Health- [place], KYComprehensive Metabolic Panelon 98-23-5885Egbpxvy [Mass/Vol]4.9 g/dLHigh3.5 - 4.6 g/dLTrumbull Regional Medical Center Health- [place], KYALP [Catalytic activity/Vol]40 U/L40 - 130 U/LMohiohealth dublin [facility]ist [facility] Health- [place], KYALT [Catalytic activity/Vol]17 U/L0 - 33 U/LMercy Health- [place], KYAnion gap [Moles/Vol]14 mmol/L [facility]- [place], KYAST [Catalytic activity/Vol]17 U/L0 - 35 U/LMercy Health- [place], KYBilirubin Ql (U)<0.20.2 - 0.7 mg/dLTrumbull Regional Medical Center [facility]- [place], KYCalcium [Mass/Vol] 10.0 mg/dLHigh8.5 - 9.9 mg/dLMercy Health- [place], KYChloride [Moles/Vol]101 mmol/L [facility]- [place], KYCO2 [Moles/Vol]24 mmol/LMprotestant hospitaly Health- [place], KYCreatinine [Mass/Vol]0.87 mg/dL0.5 - 0.9 mg/dLTrumbull Regional Medical Center [facility]- [place], KYGFR >60.0 >60[facility]- [place], [...] function. Globulin (S) [Mass/Vol]3.1 g/dL2.3 - 3.5 g/dLSelect [facility]ty [facility] [place]- [place], KYGlucose [Mass/Vol]94 mg/dL70 - 99 mg/dLTrumbull Regional Medical [facility]- [place], KYInterpretation and review of laboratory resultsAbnormalMerSkyline Hospital- [place], KYPotassium [Moles/Vol]3.9 mmol/L [facility]- [place], KYProtein [Mass/Vol]8.0 g/dL6.3 - 8 g/dLSelect Medical Specialty [facility] [place]- [place], [place] Sodium [Moles/Vol]139 mmol/LMohiohealth dublin methodist [facility] Health- [place], KYUrea nitrogen [Mass/Vol]12 mg/dL 6 - 20 mg/dLSelect Medical Specialty [facility] [place]- [place], KYHCG Qualitative, Serumon [id number] Qual NegativeMerSkyline Hospital- [place], KYLactic Acid, Plasmaon 52-85-2031Neqcrlw [Moles/Vol] 1.8 mmol/L0.5 - 2.2 mmol/LMprotestant hospitaly Health- [place], KYMicroscopic Urinalysison 95-44-4404Vpcpitoigy Cells, UA0-2/HPFTrumbull Regional Medical Center Health- [place], KYRBC (U) [#/Vol]0-2Mprotestant hospitaly Health- [place], KYWBC, UA0-2[facility]- [place], KYUrine Reflex to Cultureon 03-23-2085Negbhwyhc UrineNegativeNegativeMercy Health- [place], KYBlood, Urine Trace-intactNegativeMercy Health- [place], KYClarity, UAClearClearMercy Health- [place], KYColor, UAYellowStraw/YellowMercy Health- [place], KYGlucose, UrNegativeNegative mg/dLMercy Health- [place], KYKetones Ql (U)NegativeNegative mg/dLMercy Health- [place], KYLeukocyte esterase Test strip Ql (U)NegativeNegativeMercy Health- [place], [place] Nitrite, UrineNegativeNegativeMercy Health- [place], KYpH, UA6.0[facility]- [place], [place] Protein (U) [Mass/Vol]NegativeNegative mg/dLMercy Health- [place], KYSpecific [place], UA1.020[facility]- [place], KYUrine Reflex to CultureNot IndicatedMercy Health- [place], KYUrobilinogen, Urine0.2<2.0 E.U./dLMercy Health- [place], [place] ECHOCARDIOGRAPHY REPORT (HL)on [id number] REPORT (HL)CANTU, PRINCESS [id number] [id number] 179.6F 1.18l4BmsbtlemmpMIAOYRBMZFZJAP LABReferring: Koffi Uriarte A.Reading: CURTIS GARCIA Transthoracic [...] 4 CH 16.1 cm2LA Volume Indexed 21.05 ml/g0Dpntnnyyi/Systolic FunctionMV E- wave Vmax 0.884 m/secMV deceleration time 193 msecMV A-wave Vmax 0.494 m/secLV septal e' Vmax 0.115 m/secLV lateral e' Vmax 0.189 m/secLV E:e' septal ratio 7.7 ratio [facility] PRINCESS CANTU [id number] [place] [address] [id number] 93Koffi Uriarte MDECHOCARDIOGRAPHY REPORTLV E:e' lateral ratio [...] There is no evidence ofpulmonic regurgit ation. [facility] PRINCESS CANTU [id number] [place] [address] [id number] 93Koffi Uriarte MDECHOCARDIOGRAPHY REPORTPericardium:There is no pericardial [...] is a normal echocardiogram.PARAS GARCIA05/10/2017 10: 26:53 [facility] PRINCESS CANTU [id number] [place] [address] [id number]/16/94Stoughton HospitalKoffi roper MDECHOCARDIOGRAPHY REPORTNormalSaint Carraway Methodist Medical CenterBASIC METABOLIC PANELon 56-43-0253Piars gap10 mmol/LNormal6-18Saint [facility] Methodist Medical CenterComment on above: Order Comment: Is patient fasting? YESPerformed By: #### LBMP, LGFRP ####[facility] [address] [place], [place] [address]Calcium9.6 mg/dLNormal 8.6-10.3SLabette HealthComment on above:Order Comment: Is patient fasting? YESPerformed By: #### LBMP, LGFRP ####[facility] [address] [place], [place] [address]Owhxsuwy183 mmol/AYcdleo34-166SanpkStar Valley Medical Center Comment on above:Order Comment: Is patient fasting? YESPerformed By: #### LBMP, LGFRP ####[facility] [address] [place], [place] [address] mmol/L Qvhloc31-40XegkuStar Valley Medical CenterComment on above:Order Comment: Is patient fasting? YESPerformed By: #### LBMP, LGFRP ####[facility] [address] [place] [address]Agomtahrzc5.74 mg/dLNormal0.5-1.05Star Valley Medical CenterComment on above:Order Comment: Is patient fasting? YESPerformed By: #### LBSHAWN, LGFRP ####[facility] [address] [place] [address]Nyuzhxs mass conc82 mg/uLWotpdl20-23KbmueStar Valley Medical CenterComment on above:Order Comment: Is patient fasting? YESPerformed By: #### LBSHAWN, LGFRP ####[facility] [address] [place] [address]Sonlqbaxi molar conc4.1 mmol/LNormal3.5-5.3SLabette HealthComment on above:Order Comment: Is patient fasting? YESPerformed By: #### LBMP, LGFRP ####[facility] [address] [place] [address]Rqljnc102 mmol/QOnp234-386QjfaeStar Valley Medical CenterComment on above:Order Comment: Is patient fasting? YESPerformed By: #### LBMP, LGFRP ####[facility] [address] [place], [place] [address]Nufc oyxcjkqq93 mg/dLNormal6-23Star Valley Medical CenterComment on above:Order Comment: Is patient fasting? YESPerformed By: #### LBMP, LGFRP ####[facility] [address] [place] [address]VGJ AUTOon 05-04-2017 Erythrocyte distribution width Auto Ratio (RBC)12.8 %Ekapsd70.5-14.5SLabette HealthComment on above:Performed By: #### LCBC ####[address] [address]Ztowrpislxfm (RBC)4.65 10*6/uLNormal3.5-5.5 [facility] Valley Medical CenterComment on above:Performed By: #### LCBC ####[address] [address]Gwtoowwvre (HCT)41.1 %Normal 36.0-48.0Star Valley Medical CenterComment on above:Performed By: #### LCBC ####[address] [address]Hspqgyanxf mass conc (Bld)13.8 g/qHVcyeqp66.0-15.0Star Valley Medical CenterComment on above: Performed By: #### LCBC ####[address] [address]PZX39.7 eoPobebb08.4-34.6Star Valley Medical CenterComment on above: Performed By: #### LCBC ####[address] [address]MRCR mass conc (RBC)33.6 g/uYGrmdxi90.0-36.0[facility] Comment on above:Performed By: #### LCBC ####[address] [address]TYL24.4 pSYzjwwe87.0-98.0Star Valley Medical CenterComment on above:Performed By: #### LCBC ####[address] [address]Fphiplzi mean volume (PMV)9.3 fLNormal8.4-11.9Star Valley Medical CenterComment on above:Performed By: #### LCBC ####[address] [address]Onpgvwtam519 10*3/dAWonlbm139-076PrgbjStar Valley Medical CenterComment on above:Performed By: #### LCBC ####[facility] [address]odgc[address] [place], [place] [address]HDG (Leukocytes)6.1 10*3/uLNormal3.9-11.0 [facility] Medical CenterComment on above:Performed By: #### LCBC ####[facility] [address] [place], [place] [address]NRSGCHMKAA FILTRATION RATE ESTon 94-63-6051uHQD (non-black)mL/min/{1.73_m2}Normal> 60Star [facility] Medical CenterComment on above:Order Comment: Is patient fasting? YESPerformed By: #### LBMP, LGFRP ####[facility] [address] [place], [place] [address]SQ AMER> 90Normal> 60Star Valley Medical CenterComment on above:Order Comment: Is patient fasting? YESResult Comment: Effective 12/12/14:CKD-EPI equation / based on IDMS traceable creatinine.Continue touse the CREAT CLR-DOSE (Cockgroft-Gault)value for determining medication dose.Performed By: #### LBMP, LGFRP ####[facility] [address]gp[address] [place] [address] Vital Signs Date TimeVital SignValuePerforming FcvxwryqgHqqthbsx48-86-3455 10:07-0400Body mass index (BMI) [Ratio]27.02 kg/m2Roula VILLEDA Work Phone: [facility] InstituteCkrsgznhut86-81-4141 10:07-0400Body tnfmem50.01 kgRoula VILLEDA Work Phone: [phone] Rehabilitation InstituteCatzmahwud99-05-2371 10:07-0400Diastolic blood fkxjtaxx29 mm[Hg]Roula VILLEDA Work Phone: [phone] [facility] InstituteFnzoenjwfk61-42-7515 10:07-0400Systolic blood ddfthsuu437 mm[Hg]Roula VILLEDA Work Phone: [facility] StageJohn [facility]. Pershing VA Medical CenterIbqjukyczw39-90-2499 15:12-0400Body mass index (BMI) [Ratio]27.04 kg/a3PntnaWillis Chen DO Work Phone: [phone] [place], [place] [address]Qvumlfsuea88-04-6586 15:12-0400Body amxkme70.06 kgCorey April DO Work Phone: [phone] [place], [place] [address]Hbgbbcctxa07-02-0274 15:12-0400Diastolic blood jgnjtozu85 mm[Hg]Willis April DO Work Phone: [phone] [place], [place] [address]Wugyboftam34-72-2268 15:12-0400Systolic blood ystignhy536 mm[Hg]Willis April DO Work Phone: [phone] [place] [address]-20-2025 15:39-0400Body mass index (BMI) [Ratio]26.26 kg/m2Amy Mitchel VILLEDA Work Phone: [phone] [place], [place] [address]Xthpiavxsu76-39-0727 15:39-0400Body .65 kgAmy Mitchel VILLEDA Work Phone: [phone] [place], [place] [address]Brnrmbkuzu51-98-9816 15:39-0400Diastolic blood mm[Hg]Roula VILLEDA Work Phone: [phone] [place], [place] [address]Wutqucgzob82-56-6711 15:39-0400Systolic blood hloajcyp118 mm[Hg]Roula VILLEDA Work Phone: [phone] [place], [place] [address]Iktzaxihom57-40-4516 15:09-0400Body mass index (BMI) [Ratio]26.11 kg/h8Ykzep April DO Work Phone: [phone] [place], [place] [address]Knznpvbrqr72-04-0474 15:09-0400Body kuuehx36.2 kg Willis April DO Work Phone: [phone] [place], [place] [address]Ojdqubsirx35-09-2236 15:09-0400Diastolic blood fmijrcgn18 mm[Hg]Willis April DO Work Phone: [phone] [place], [place] [address]Byavkpkdre54-24-5192 15:09-0400Systolic blood eqpmilfu177 mm[Hg]Willis April DO Work Phone: [phone]46 [address] [place], [place] [address]Wpvppnnoxb88-29-6840 09:35-0400Body mass index (BMI) [Ratio]25.92 kg/m2Amy Mitchel VILLEDA Work Phone: 1(144)[facility]-[address] [place], [place] [address] 09:35-0400Body klyqpm53.61 kgRoula VILLEDA Work Phone: 1(805)800-[address] [place], [place] [address]Yxquzypbgk52-32-0936 09:35-0400Diastolic blood mm[Hg]Roula VILLEDA Work Phone: [facility] InstituteVmkbwhpddn01-70-5021 09:35-0400Systolic blood udbnvlpn989 mm[Hg]Roula VILLEDA Work Phone: 1(603)156-[address] [place], [place] [address]Veurxnwlfm53-14-9242 11:56-0400Body mass index (BMI) [Ratio]26.55 kg/m8[facility]dSt[facility]06-27-2025 11:56-0400Body weight 81.56 kgSt[address] [facility]02-25-2025 12:28-0500Body xgocox272.3 cmKoffi Uriarte MD Work Phone: 1([phone])852-[facility]02-25-2025 12:28-0500 Body mass index (BMI) [Ratio]27.06 kg/f1DvpbhivKoffi Uriarte MD Work Phone: [phone]02-25-2025 12:28-0500 Body syieejqadwq76.3 [degF]Koffi Uriarte MD Work Phone: [phone])9[facility]25-2025 12:28-0500 Body ntactr01.12 kgKoffi Uriarte MD Work Phone: [facility]02-25-2025 12:28-0500 Diastolic blood mcwawuqc34 mm[Hg]Koffi Uriarte MD Work Phone: [facility]02-25-2025 12:28-0500 Heart rate71 /minKoffi Uriarte MD Work Phone: [facility]02-25-2025 12:28-0500 Systolic blood mwjkfilb440 mm[Hg]Koffi Uriarte MD Work Phone: [facility]10-16-2024 09:18-0400 Body fjgiqs722.3 Tawanda Calderon MD Work Phone: [facility]10-16-2024 09:18-0400 Body mass index (BMI) [Ratio]28.15 kg/v0WwbkexNedra Calderon MD Work Phone: [facility]10-16-2024 09:18-0400 Body vxkkhcokdol73.91 [degF]Nedra Calderon MD Work Phone: [facility]10-16-2024 09:18-0400 Body .46 kgNedra Calderon MD Work Phone: [facility]10-16-2024 09:18-0400 Diastolic blood qogdlmyp18 mm[Hg]Nedra Calderon MD Work Phone: [facility]10-16-2024 09:18-0400 Heart rate67 /Wilner Calderon MD Work Phone: [facility]10-16-2024 09:18-0400 Systolic blood zubnfgon656 mm[Hg]Nedra Calderon MD Work Phone: [facility]04-23-2024 15:27-0400 Body nfqirs922.26 [facility]-20[facility] 15:27-0400Body mass index (BMI) [Ratio]28.2 kg/z7LrpmoxfdfKettering Health [facility]04-23-2024 15:27-0400Body ilxpwqzypkb68.1 [degF][facility]04-23-2024 15:27-0400Body .74 kgK[facility]04-23-2024 15:27-0400Heart rate63 /[facility]04-23-2024 15:27-0400Respiratory rate18 /[facility]04-23-2024 15:27-1656MkX5% (BldA) [Mass fraction]99 %[facility] 07-31-2022 10:54-0500Body .26 cmKoffi Uriarte Work Phone: mp-[facility]SPCM[facility] Work Phone: 1(377) 996-275101-13-2023 10:54-0500Body mass index (BMI) [Ratio] 31.01 kg/l6Dbylwnw A Chapito Work Phone: mp-[facility]CM[facility] [employer] Work Phone: 1(491) 810-813401-13-2023 10:54-0500Body surface area Derived from formula2.11 a4Zcyspzu A Chapito Work Phone: mp-[facility]SPCM2[facility] [employer] Work Phone: 1(140) 958-380401-13-2023 10:54-0500Body iocdhgyylgb38.6 [degF] Koffi A Chapito Work Phone: mp-[facility]CM[facility] [employer] Work Phone: 1(145) 937-600901-13-2023 10:54-0500Body dwhnej34.26 kgMonique A Chapito Work Phone: mp-[facility] [employer] Work Phone: 1(764) 149-570001-13-2023 10:54-0500Diastolic blood mm[Hg] Koffi Alison Uriarte Work Phone: mp-[facility] [employer] Work Phone: 1(436) 962-243601-13-2023 10:54-0500Heart rate76 /minMonique A Chapito Work Phone: mp-[facility] [employer] Work Phone: 1(476) 248-495701-13-2023 10:54-0500Respiratory rate18 /minMonique A Chapito Work Phone: mp-[facility]CM[facility] [employer] Work Phone: 1(761) 976-260101-13-2023 10:54-0500Systolic blood lyrqmuzn491 mm[Hg] Koffi Alison Uriarte Work Phone: [employer]Team[employer]Mil[facility] Work Phone: 1(734) 626-696206-08-2022 11:32-0400Body zudpph192.26 cmMonique A Uriarte Work Phone: mp796-6912KF-Nbgdvapek-Eugene SJW DO Work Phone: 1(826) 357-395206-08-2022 11:32-0400Body mass index (BMI) [Ratio] 31.03 kg/b8Ellnrbz A Uriarte Work Phone: mp613-2108TI-Cirskntpc-[place] SJW DO Work Phone: 1(672) 415-264406-08-2022 11:32-0400Body surface area Derived from formula2.11 k0Yqpyvxj A Uriarte Work Phone: mp450-1497XO-Ysbwofwqv-[employer] SJW DO Work Phone: 1(947) [phone] 11:32-0400Body zuuuxoryyqh43.1 [degF] Koffi Alison ClementeUriarte Work Phone: mp381-1592QB-Peqoyxyvo-[employer] W DO Work Phone: 1(911) 897-230706-08-2022 11:32-0400Body nyvaya12.3 kgMonique A Uriarte Work Phone: mp126-7806SR-Seesozpjx-[employer] W DO Work Phone: 1(378) 245-505306-08-2022 11:32-0400Diastolic blood tuyheace80 mm[Hg] Koffi Alison Uriarte Work Phone: mp358-7947XS-Lgozajvii-Eugene W DO Work Phone: 1(792) 736-403206-08-2022 11:32-0400Heart rate54 /minMonique A Chapito Work Phone: mp990-6936IX-Kxkocayqi-[place] SJW DO Work Phone: 1(298) 592-953006-08-2022 11:32-3307GsQ8% (BldA) [Mass fraction]100 % Koffiminesh Uriarte Work Phone: mp009-9600YR-Mbeibueoj-[place] SJW DO Work Phone: 1(765) 428-123306-08-2022 11:32-0400Systolic blood ujgtesro535 mm[Hg] Koffi A Chapito Work Phone: mp762-2919US-Wtcqlmjjz-[place] SJ DO Work Phone: 1(450) 989-740005-02-2022 13:08-0400Body yqqefn861.72 cmMonique A Chapito Work Phone: mp-[facility] Work Phone: 1(699) 188-536705-02-2022 13:08-0400Body mass index (BMI) [Ratio] 32.39 kg/k5Xqgtrhr A Chapito Work Phone: mp-[facility] Work Phone: 1(927) 502-243405-02-2022 13:08-0400Body surface area Derived from formula2.1 z0Luivhwb A Chapito Work Phone: mp-[facility] Work Phone: 1(205) 716-767805-02-2022 13:08-0400Body feqwcpksybg16 [degF]Koffi A Chapito Work Phone: mp-[facility] Work Phone: 1(396) 368-770605-02-2022 13:08-0400Body ksjduy67.62 kgMonique A Chapito Work Phone: mp-[facility] Work Phone: 1(759) 667-965005-02-2022 13:08-0400Diastolic blood cofsaidp84 mm[Hg] Koffi A Chapito Work Phone: mp-[facility] Work Phone: 1(728) 896-571405-02-2022 13:08-0400Heart rate70 /minMonique A Chapito Work Phone: mp-[facility] Work Phone: 1(720) 716-981105-02-2022 13:08-0400Respiratory rate18 /minMonique A Chapito Work Phone: mp-[facility] Work Phone: 1(746) 116-441305-02-2022 13:08-9065FjO0% (BldA) [Mass fraction]96 % Koffi Uriarte Work Phone: mp-[facility] Work Phone: 1(445) 169-588305-02-2022 13:08-0400Systolic blood cfmosbja314 mm[Hg] Koffi Uriarte Work Phone: mp-[facility]SPC[facility] Work Phone: 1(239) 970-886612-08-2021 10:54-0500Body jdpyci645.72 cmKoffi Uriarte Work Phone: mp736-0715FT-Oknrclzjl-Eugene W DO Work Phone: 1(539) 449-971812-08-2021 10:54-0500Body mass index (BMI) [Ratio] 32.08 kg/e7UktoihiKoffi Uriarte Work Phone: mp151-0309LQ-Nnaidqwdm-Eugene W DO Work Phone: 1(580) 915-865812-08-2021 10:54-0500Body surface area Derived from formula2.09 f1JtgnuabKoffi Clementeson Work Phone: mp059-9060JU-Lzwvfrlih-Eugene W DO Work Phone: 1(520) 337-981912-08-2021 10:54-0500Body thjszooibrk12.1 [degF] Koffi Uriarte Work Phone: mp993-9429RU-Gcawfazei-Eugene SJW DO Work Phone: 1(995) 820-553812-08-2021 10:54-0500Body .71 kgKoffi Clementeson Work Phone: mp871-5080OL-Ransphlwr-Eugene SJW DO Work Phone: 1(225) 740-413812-08-2021 10:54-0500Diastolic blood cybikpjp05 mm[Hg] Koffi Clementeson Work Phone: mp449-0215BP-Dexkfcutn-Eugene SJW DO Work Phone: 1(708) 721-359412-08-2021 10:54-0500Heart rate67 /minMonminesh Clementeson Work Phone: mp104-0381FM-JhjlefpdeHouse of the Good [facility]ar[facility] DO Work Phone: 1(614) 704-568112-08-2021 10:54-0500Respiratory rate18 /minMonminesh Uriarte Work Phone: mp184-7303NN-KdnnulaguHouse of the Good Samaritan DO Work Phone: 1(646) 736-184112-08-2021 10:54-4084JrX5% (BldA) [Mass fraction]99 % Koffi Uriarte Work Phone: mp703-4187VW-ZpbiqllxmHouse of the Good Samaritan DO Work Phone: 1(794) 604-102712-08-2021 10:54-0500Systolic blood mm[Hg] Koffi Uriarte Work Phone: mp481-6362QG-RvfsydxecHouse of the Good Samaritan DO Work Phone: 1(384) 491-327111-02-2021 15:59-0400Body egwunu328.72 cmMonminesh Clementeson Work Phone: mp[employer] Work Phone: 1(176) 902-774811-02-2021 15:59-0400Body mass index (BMI) [Ratio] 31.93 kg/k5Nxqeoawminesh Uriarte Work Phone: [employer] Work Phone: 1(490) 976-899111-02-2021 15:59-0400Body surface area Derived from formula2.09 k9AivbcvdKoffi Clementeson Work Phone: mp-[employer] Work Phone: 1(302) 779-509911-02-2021 15:59-0400Body iwtjizqyyjj62.1 [degF] Koffi Clementeson Work Phone: [employer]K[facility]oon[facility] Work Phone: 1(461) 993-932011-02-2021 15:59-0400Body ikybus47.26 kgMonique Alison ClementeUriarte Work Phone: mpKowloon[facility] Work Phone: 1(549) 672-297911-02-2021 15:59-0400Diastolic blood mm[Hg] Koffi Uriarte Work Phone: mp-[facility] [employer] Work Phone: 1(821) 610-413011-02-2021 15:59-0400Heart rate72 /minMonique A Chapito Work Phone: mp-[facility] [employer] Work Phone: 1(598) 246-757211-02-2021 15:59-0400Respiratory rate16 /minMonique A Chapito Work Phone: mp-[facility] [employer] Work Phone: 1(219) 636-760511-02-2021 15:59-0400Systolic blood tiouxgxi359 mm[Hg] Koffi Uriarte Work Phone: mp-[facility] Work Phone: 1(927) 463-640806-08-2021 14:45-0400Body ssaoju646.72 cmMonique A Chapito Work Phone: mp-[facility] [employer] Work Phone: 1(368) 356-325306-08-2021 14:45-0400Body mass index (BMI) [Ratio] 30.71 kg/z1Rtinnmu A Chapito Work Phone: mp-[facility] Work Phone: 1(686) 911-535506-08-2021 14:45-0400Body surface area Derived from formula2.05 b9Fpddqps A Uriarte Work Phone: mp-[facility] Work Phone: 1(888) 469-942206-08-2021 14:45-0400Body btmnuahfqir66.8 [degF] Koffi A Uriarte Work Phone: mp-[facility] Work Phone: 1(121) 471-506706-08-2021 14:45-0400Body acbley22.63 kgMonique A Uriarte Work Phone: mp-[facility] Work Phone: 1(447) 536-658906-08-2021 12:59-0400Body xylsba807.72 cmMonique A Chapito Work Phone: mp-WSPCM2Z NetworksJennifer Ruby Work Phone: 1(868) 237-820006-08-2021 12:59-0400Body mass index (BMI) [Ratio] 30.71 kg/b3Jshoncb A Uriarte Work Phone: mp-[facility] Work Phone: 1(317) 955-395206-08-2021 12:59-0400Body surface area Derived from formula2.05 k7Lhkljml A Uriarte Work Phone: mp-[facility] Work Phone: 1(781) 372-230206-08-2021 12:59-0400Body bmkvuqrlcmw08.2 [degF] Koffi A Chapito Work Phone: mp-[facility] Work Phone: 1(393) 842-245906-08-2021 12:59-0400Body .63 kgMonique A Chapito Work Phone: mp-[facility] Work Phone: 1(966) [phone] 12:59-0400Diastolic blood vzdjpixe98 mm[Hg] Koffi A Chapito Work Phone: mp-[facility] [employer] Work Phone: 1(729) 708-874706-08-2021 12:59-0400Heart rate75 /minMonique A Uriarte Work Phone: mp-[facility] Work Phone: 1(559) 613-432806-08-2021 12:59-0400Respiratory rate16 /minMonique A Uriarte Work Phone: mp-WSPCM2Z NetworksJennifer Ruby Work Phone: 1(340) 308-116606-08-2021 12:59-0400Systolic blood emvlokrp614 mm[Hg] Koffi A Uriarte Work Phone: mp-[facility] Work Phone: 1(260) 794-296001-27-2021 13:26-0500BMI (Body Mass Index)29.04 kg/m2 Koffi UriarteBwodgkblrtWQ-Mndzuzkho-Agllkdpt W DO Work Phone: 1(380) 258-469801-27-2021 13:26-0500Body Abjgmrmtwxr40.5 [degF] Koffi UriarteLziavcpebiPL-Duljptaxr-Qylzwusw W DO Work Phone: 1(606) [phone] 13:26-0500Body ibxdui25.64 kgKoffi UriarteOvpkkrmnhtPD-Niotifozr-Wcbwfado W DO Work Phone: 1(933) 567-259601-27-2021 13:26-0500BP Odkcnpzuw182 mm[Hg]Koffi ClementeEyvscotltxID-Jsuthdsrz-Ffatiazn W DO Work Phone: 1(171) 748-743501-27-2021 13:26-0500BP Vibnigdo546 mm[Hg]Koffi TavarezIfhojygovgUJ-Uerpzmzct-Fnvxpwha W DO Work Phone: 1(934) 768-165501-27-2021 13:26-0500BSA (Body Surface Area)2 m2 Kfofi UriarteBgrvvnkkrdZR-Isxcajsnc-Gcfrgmvx W DO Work Phone: 1(858) 525-208501-27-2021 13:26-0979Xmsdki259.72 cmKoffi Uriarte OV-Wjvdvihdz-Setjhisd SJW DO Work Phone: 1(166) 106-709911-10-2020 15:24-0500BMI (Body Mass Index)28.59 kg/m2 Koffi TavarezHpcihpvbgmMS-OWQM-[place] Work Phone: 1(716) 908-120111-10-2020 15:24-0500Body Vihtcmadcwm31.6 [degF] Koffi UriarteGwfoxtlrrnDE-GGNH-Rsir [place] Work Phone: 1(231) 698-593911-10-2020 15:24-0500Body .28 kgKoffi UriarteSfllycrpaqHN-YFFT-[place] Work Phone: 1(586) 401-667911-10-2020 15:24-0500BP Qgcvcbefu86 mm[Hg]Koffiminesh TavarezCqhluwokfwZR-YPLI-Cdhx [place] Work Phone: 1(313) 658-411211-10-2020 15:24-0500BP Ylwnrgxs477 mm[Hg]Koffi JohnsonUffkhewabdPX-TUOD-Bwyp [place] Work Phone: 1(126) 879-415611-10-2020 15:24-0500BSA (Body Surface Area)1.99 m2 Koffi UriarteTwzeyljltdED-VLFB-Bshh [place] Work Phone: 1(206) 260-283611-10-2020 15:24-2082Alvsua647.72 cmKoffi Uriarte [facility] Work Phone: 1(766) 881-173411-10-2020 15:24-0500Pulse (Heart Rate)70 /minKoffi TavarezKhpgcqftvtUZ-IMER-[place]ykq [place] Work Phone: 1(305) 126-953711-10-2020 15:24-0500Respiratory Rate18 /minKoffi TavarezZuwsnsutntXM-JRFZ-Nspu [place] Work Phone: 1(839) 416-679210-08-2020 16:01-0400BMI (Body Mass Index)28.59 kg/m2 Koffi UriarteNtufpenatuGC-YXBV-[place] Work Phone: 1(363) 161-440110-08-2020 16:01-0400Body Nwrxiyspqdh88.6 [degF] Koffi TavarezSopdfirzaoPL-GKNI-Drnx [place] Work Phone: 1(588) 716-247710-08-2020 16:01-0400Body epdedv04.28 kgKoffi TavarezDjteqvehwzAX-IXCG-[place]ujk [place] Work Phone: 1(495) 769-516710-08-2020 16:01-0400BP Oqronyykf660 mm[Hg]Koffi TavarezMknaljhbthUW-FHOO-Kjzd [place] Work Phone: 1(882) 942-662410-08-2020 16:01-0400BP Oodetszs521 mm[Hg]Koffi TavarezEfjythnkacHH-WALW-Bfpr [place] Work Phone: 1(271) 118-106610-08-2020 16:01-0400BSA (Body Surface Area)1.99 m2 Koffi TavarezPstdldnrqxKN-ZRYZ-Vxdx [place] Work Phone: 1(726) 387-221010-08-2020 16:01-7360Jdrnlo181.72 cmKoffi Uriarte LV-VUSK-[place] Work Phone: 1(593) 121-560910-08-2020 16:01-0400Pulse (Heart Rate)76 /minKoffi TavarezHjgxofmivzVA-CGHW-Hilv [place] Work Phone: 1(122) 682-361310-08-2020 16:01-0400Respiratory Rate16 /minKoffi TavarezIechdhypnwEW-DEMS-Qhtt [place] Work Phone: 1(779) 745-186910-02-2020 00:00-0400BP Bnexyotyq65 mm[Hg][facility], NP67-91-7051 00:00-0400BP Senssdhr038 mm[Hg][facility], ER59-54-2433 22:17-0400BMI (Body Mass Index)28.06 kg/j3CahjtkbKaleida Health, NA16-45-2011 22:17-0400Body Vjyghsekigs89.91 [degF][facility], NC39-54-8844 22:17-0400Body xcppeo16.18 kgKaleida Health, OQ92-47-9969 22:17-7702Dtpsfy107.3 cmKaleida Health, BC57-14-7371 22:17-0400Pulse (Heart Rate)105 /minKaleida Health, [place] 04-18-2020 22:17-0400Pulse Vtarylay17 %[facility], [place] 04-18-2020 22:17-0400Respiratory Rate16 /minKaleida Health, [place] Encounters Encounter DateEncounter TypeCare ProviderFacilityStart: 05-29-2025 End: 44-53-2105Cmqexd flowsheetCorey April DO Work Phone: [facility] OBGYNStart: 05-29-2025 End: 14-01-2428Hpsxhj flowsheetCorey April DO Work Phone: [facility] [place] OBGYNStart: 05-29-2025 End: 92-75-6218xioxyqlourWYRML FAZIONot AvailableStart: 05-19-2025 End: 35-07-8796Oezndhzsd Result EncounterRoula VILLEDA Work Phone: noMS External Department UnsolicitedStart: 05-19-2025 End: 16-88-2278Tajsnmsnf Result EncounterRoula VILLEDA Work Phone: noms External Department UnsolicitedStart: 04-30-2025 End: 90-49-4950Kgjwvd flowsheetRoula VILLEDA Work Phone: noMS [place] OBGYNStart: 04-30-2025 End: 75-67-4866Wlcshn Tim VILLEDA Work Phone: [facility] [place] OBGYNStart: 04-30-2025 End: 27-64-3410hzrtployfzDNF MITCHELNot AvailableStart: 04-30-2025 End: 03-20-3408Cztkmylz flow sheetRoula VILLEDA Work Phone: noms Giselle OBGYNComment on above:Second trimester ([facility]); 24 weeks gestation of ([facility]); Hypertension, unspecified type; Seizure ([facility]); Diabetes mellitus screeningStart: 04-07-2025 End: 25-02-3344Fjjzkhqqw Result EncounterRoula VILLEDA Work Phone: noms External Department UnsolicitedStart: 04-07-2025 End: 45-27-2615Owtcyamwe Result EncounterRoula VILLEDA Work Phone: noms External Department UnsolicitedStart: 04-04-2025 End: 66-20-9028Yjqzeybl flow sheetCorey April DO Work Phone: [facility] [place] OBGYNComment on above:20 weeks gestation of ([facility]); Second trimester ([facility])Start: 04-04-2025 End: 14-28-5941xwwvczmqtrGXYGA FAZIONot AvailableStart: 04-04-2025 End: 04-22-4409Zpkrqxygg Result EncounterCorey April DO Work Phone: noms External Department UnsolicitedStart: 04-04-2025 End: 53-10-3701Qbdzlkcyg Result EncounterCorey April DO Work Phone: noms External Department UnsolicitedStart: 03-14-2025 End: 74-68-4287bupufvvwgxHSF MITCHELNot AvailableStart: 03-07-2025 End: 49-68-9760Toorxcq encounter procedureRoula Grullon CHRISTIANA Work Phone: [facility] Work Phone: Start: 03-07-2025 End: 21-25-7660Iiqmqzta flow sheetRoula Lerneraayush VILLEDA Work Phone: noms Giselle OBGYNComment on above:Well woman exam with routine gynecological exam; Second trimester ([facility]); 16 weeks gestation of ([facility]); Vaginal discharge; STD exposure; Screening, , for anatomic survey ([facility])Start: 03-07-2025 End: 47-63-2531bzzsxpxnvlVJZ MITCHELNot AvailableStart: 03-07-2025 End: 33-21-4038Kntbhu flowsheetRoula Lerneraayush VILLEDA Work Phone: [facility] [place] OBGYNStart: 03-07-2025 End: 14-24-9217Kbzrex flowstayaRoula Mitchel PA Work Phone: [facility] [place] OBGYNStart: 03-07-2025 End: 80-68-2963Qlquggazz Result EncounterRoula Grullon CHRISTIANA Work Phone: noms External Department UnsolicitedStart: 03-07-2025 End: 97-06-2296Cmjwlfar Result EncounterRoula Lerneraayush VILLEDA Work Phone: noms External Department UnsolicitedStart: 02-21-2025 End: 86-46-1720namgrmvbznIHEMV FAZIONot AvailableStart: 02-07-2025 End: 62-55-1032Affbwiov flow sheetCorey April DO Work Phone: NONQ [place] OBGYNComment on above:First trimester ([facility]); 12 weeks gestation of ([facility]); Missed menses; Subchorionic hematoma in second trimester, single or unspecified fetus ([facility]) Start: 02-07-2025 End: 93-57-2977ljwfvrizfmFKZAN FAZIONot AvailableStart: 02-07-2025 End: 77-08-9162Divqwc flowsheetCorey April DO Work Phone: NOBA BCP OBStart: 02-07-2025 End: 13-97-1862Zgsqzr flowsheetCorey April DO Work Phone: NOLX BCP OBStart: 02-01-2025 End: 33-29-4980Fvnmlu Tim VILLEDA Work Phone: NOGK BCP OBStart: 02-01-2025 End: 49-32-2808Tvzfaj Tim VILLEDA Work Phone: NOGU BCP OBStart: 02-01-2025 End: 65-35-6117Ohqrrk outpatient visit 15 minutesAmy Mitchel VILLEDA Work Phone: noms BCP OBComment on above:Nausea and vomiting, unspecified vomiting type (Primary Dx); First trimester ([facility]); 11 weeks gestation of ([facility])Start: 02-01-2025 End: 32-33-2357feuqhrplfjORM RAMEYNot AvailableStart: 01-22-2025 End: 13-37-1921Gmhscwyou Result EncounterCorey April DO Work Phone: noms External Department UnsolicitedStart: 01-22-2025 End: 97-66-3694Hawnzwnrf Result EncounterCorey April DO Work Phone: noMS External Department UnsolicitedStart: 01-12-2025 End: 81-32-4443Gdmhiq outpatient visit 5 minutesFakay Peterson Nomshaina Bcp ObNOMS BCP OBComment on above:GA: 7e2fZyfsk: 01-12-2025 End: 85-37-3750ierqfqoymeGXP RAMEYNot AvailableStart: 09-12-2024 End: 77-20-2869Dsdciy outpatient visit 25 minutesKoffi Uriarte MD Work Phone[facility] CareComment on above:Benign essential hypertension (Primary Dx); Seizure (Multi); Vitamin B12 deficiency; Fatigue, unspecified type; Well adult health check; Vitamin D deficiencyStart: 09-12-2024 End: 44-51-4198Wcbtduh encounter statusKoffi Uriarte MD Work Phone: [facility] Work Phone: Start: 09-12-2024 End: 12-54-8291twiryromieLEAOMVS A [facility] Start: 09-12-2024 End: 59-52-9899Kwhtfbubk for general adult medical examination without abnormal findingsMONChildren's [facility] AmbulatoryStart: 05-03-2024 End: 72-31-6731Eiiwza outpatient visit 25 minutesNedra Calderon MD Work Phone: [facility] HospitalComment on above:Seizure (Multi) (Primary Dx)Start: 05-03-2024 End: 30-32-4802zcsxjmdfdvURSJAK M [facility] AmbulatoryStart: 04-13-2024 End: 32-85-4815snclyxdgesFwcfdty HARWOODFacility:FTMCStart: 03-30-2024 End: 30-26-6282nqkxmoccvxVlge T AMESFacility:FTMCStart: 12-15-2023 End: 64-96-0244gonvfzphgxPwoe ProviderFacility:[facility] Hospitaltart: 11-09-2023 End: 34-03-1034mmqpnkxpcdWfcwskqwqAultman Hospital Work Phone: Start: 11-09-2023 End: 04-91-0682Xxfxtnv encounter procedureUnc [facility] Work Phone: Start: 08-04-2023 End: 98-74-4292ygojvwtmotTnxjt FazioFacility:[facility] Start: 08-03-2023 End: 73-16-1449Cdjhcznic Result EncounterCorey April DO Work Phone: noms External Department UnsolicitedStart: 08-03-2023 End: 63-81-1292Wjqxcffgf Result EncounterCorey April DO Work Phone: noms External Department UnsolicitedStart: 07-26-2023 End: 59-61-0694Zygozalmb Result EncounterCorey April DO Work Phone: noms External Department UnsolicitedStart: 07-26-2023 End: 57-31-1525Ifnqbizbw Result EncounterCorey April DO Work Phone: noms External Department UnsolicitedStart: 07-20-2023 End: 37-96-9929Syxabxems Result EncounterCorey April DO Work Phone: noms External Department UnsolicitedStart: 07-20-2023 End: 69-44-5963Pbpkjestm Result EncounterCorey April DO Work Phone: noms External Department UnsolicitedStart: 07-11-2023 End: 46-12-7633Exhfbbpii Result EncounterCorey April DO Work Phone: noms External Department UnsolicitedStart: 07-11-2023 End: 88-97-4907Vigmrbcle Result EncounterCorey April DO Work Phone: noms External Department UnsolicitedStart: 04-30-2023 End: 90-04-4984Bdxnom outpatient visit 15 minutesNedra Calderon MD Work Phone: uh [facility] CenterComment on above:Seizure (CMS/HCC) (Primary Dx)Start: 11-25-2022 End: 93-32-0096pgkjsurwpmKS WILLIS APRIL .Facility:X5Dajws: 11-16-2022 End: 13-95-5512rpamgmbulrMP WILLIS APRIL .Facility:O4Nnygn: 19-50-9231Tggiupk tobacco non-user cad cap copd pv dmMonminesh A Chapito Work Phone: [facility] Work Phone: Start: 43-99-0925Fmoqulhf preventive med est patient 18-39 yrsMonique A Chapito Work Phone: [facility] Work Phone: Start: 57-96-9345hpejscousgJc. Koffi Uriarte Facility:[id number]: 04-16-2022 End: 57-51-4290zqfapiuyfjYISADT K BICANOVSKYFacility:[facility] Start: 55-22-4706Wiyqyrgms encounterKavita Sweet DO Work Phone: OB/GynecologyComment on above:Bleeding With Start: 03-24-2022 End: 77-72-7425Xdcfduk encounter Harsh Hassan [facility] Start: 53-49-8428Ictopfird encounterTammy Ryan [place] Work Phone: CB/GynecologyComment on above:AppointmentStart: 31-70-2130YJZWPTzstsln Alison Uriarte Work Phone: [phone] DO Work Phone: Start: 04-83-7731dthctzkclgSxzz aPttie PA-C Work Phone: OB/GynecologyComment on above:Bacteria VaginosisStart: 30-40-5088PWAUONcdpmgv Alison Uriarte Work Phone: [facility] Work Phone: Start: 24-62-5879Wlbcsn outpatient visit 15 minutes Koffi Uriarte Work Phone: [phone]-CyoltsaywGoodData DO Work Phone: Start: 99-88-8828Zjmasx outpatient visit 15 minutes Koffi A Chapito Work Phone: [facility] Work Phone: Start: 24-95-5217RLNWYBlximst A Uriarte Work Phone: [facility] Work Phone: Start: 09-09-2021 End: 40-91-9861ofjdfumkvxFHQY GLASENAPPFacility:[facility]ertart: 07-04-2021 End: 60-86-4857uqsiyjwvnoNTCJW NEMETHFacility:[facility] Centertart: 62-24-5606Okcngrozf for gynecological examination (general) (routine) without abnormal findingsTAMMY [facility] HospitalStart: 03-44-2549Enlosg outpatient visit 25 minutesMonique A Chapito Work Phone: [phone]-[facility]occgu[facility] Work Phone: Start: 04-93-4441Xlcmp UpdateMonique A Uriarte Work Phone: [facility] Work Phone: Start: 03-13-6484Occvvy outpatient visit 25 minutes Koffi Alison Uriarte Work Phone: [facility] Work Phone: Start: 42-19-7296Uyabrak encounter procedureMonique A Uriarte Work Phone: [facility] Work Phone: Start: 63-33-3691EAPSTBalpijm A Uriarte Work Phone: [facility] Work Phone: Start: 17-08-2362Ypchz UpdateMonique A Uriarte Work Phone: [facility] Work Phone: Start: 26-49-2512Mfpeua outpatient visit 25 minutes Koffiminesh Uriarte Work Phone: mp-[facility] Work Phone: Start: 78-42-6505Jckyhwa encounter procedureMonique DluyeomskoUS-Dzsgzxkot-Uehasywt SJW DO Work Phone: Start: 84-93-3936Ydwhtcr encounter procedureMonique ZgkuqsejeaTA-Itxgpzlgf-Dxgtmrhh SJ DO Work Phone: Start: 91-66-8347Zddeewx encounter procedureMonique HwpsbuubyhSE-MIUJ-[place] Work Phone: Start: 05-09-2020 End: 59-14-1426Qexykhe encounter procedureDAGila Regional Medical Centertart: 05-09-2020 End: 65-40-5919Zdjxfguuvz hospital visit by physicianLorain Neuro 1EEGComment on above:ArrivedNonintractable generalized idiopathic epilepsy without status epilepticus (HCC)Start: 47-58-9748Wwadgfv encounter procedureMonique Chapito BL-DGHF-Kfqj [place] Work Phone: Start: 04-19-2020 End: 20-91-7935Gloybnegx department patient visitMICAMANDO Renteria [facility]art: 04-18-2020 End: 15-99-6905Rgzdwdqik department patient visitMicdaquan Truongfield Work Phone: [facility] EDComment on above:Seizure (HCC) (Primary Dx)Start: 68-29-6277Psdwaeq encounter procedureMonique Chapito DB-QKOO-[place] Work Phone: Start: 58-24-7552ZgyzmufjdoYfukcbg A Richardson [facility]Patient encounter statusKoffi Uriarte Work Phone: mp-[facility] Work Phone: Procedures DateProcedureProcedure DetailPerforming ClinicianStart: 16-52-1223GXJ CBC WITH AUTO DIFFAmy Mitchel VILLEDA Work Phone: Start: 50-85-7764Ysogc dip stick/tablet rgnt non-auto w/o micrscpAmy Mitchel VILLEDA Work Phone: Start: 07-09-6269CDC, SERUM, OPEN SPINA BIFIDAAmy Mitchel VILLEDA Work Phone: Start: 26-71-0771Sxuxa dip stick/tablet rgnt non-auto w/o micrscpCorey April DO Work Phone: Start: 70-52-9646CL OB ANATOMYCorey April DO Work Phone: Start: 86-91-6198DQ OB CERVICAL LENGTHCorey April DO Work Phone: Start: 31-79-8353CVVDLQZZN VAGINITIS (HTRX)Roula VILLEDA Work Phone: Start: 81-80-3306Hbtxc dip stick/tablet rgnt non-auto w/o micrscpAmy Mitchel VILLEDA Work Phone: Start: 73-83-4061NPZ,APTIMA HPV,AGE GDLNAmy Mitchel VILLEDA Work Phone: Start: 40-73-4516Koakkcvemjl observation [Identifier] in Cervix by Cyto stainCorey April DO Work Phone: Start: 07-33-8153Vyzdh dip stick/tablet rgnt non-auto w/o micrscpCorey April DO Work Phone: Start: 30-15-5128BID TESTCorey April DO Work Phone: Start: 01-12-2025 End: 82-37-6199Zksty dip stick/tablet rgnt non-auto w/o micrscpCorey April DO Work Phone: Start: 138964-bmdbcrtojqqbhd D3 [Mass/volume] in Serum or PlasmaKoffi Uriarte MD Work Phone: Start: 28-11-8059Egvfcfibf (Vitamin B12) [Mass/volume] in Serum or PlasmaMonique Alison Uriarte MD Work Phone: Start: 28-54-3252Ogocpbhx blood countMonique Ailson Uriarte MD Work Phone: Start: 11-09-8220Hqvseipqigmqd metabolic panelMonique Alison Uriarte MD Work Phone: Start: 50-88-8065Gsvdg panelMonique Alison Uriarte MD Work Phone: Start: 33-78-7176BUN WITH REFLEX TO FREE T4 IF ABNORMALMonique Alison Uriarte MD Work Phone: Start: 47-49-1309Yxtce 1996 panel - Serum or Plasma Koffi Chapito REINOSO Work Phone: Start: 59-87-8900NQ OB BPP W NON-STRESSCorey April DO Work Phone: Start: 41-68-9655YP OB BPP W NON-STRESSCorey April DO Work Phone: Start: 97-29-4451SI OB BPP W NON-STRESSCorey April DO Work Phone: Start: 32-87-6592GO OB GROWTHCorey April DO Work Phone: Start: 66-75-8074BT OB BPP W NON-STRESSCorey April DO Work Phone: Start: 07-73-7395Darasljcein observation [Identifier] in Cervix by Cyto stainNedra Calderon MD Work Phone: Start: 40-38-2283Hhqoqzzysmd observation [Identifier] in Cervix by Cyto stainCorey April DO Work Phone: Start: 66-45-2514Qbkavlpcwsq [Units/volume] in Serum or PlasmaNedra Calderon MD Work Phone: Start: 97-81-6474GLA W Auto Differential panel - Blood Koffi UriarteStart: 49-23-6885Cmwbfjjdwztnl metabolic 2000 panelMonique MilfordStart: 59-54-8240Axaciscrdycr drug not elsewhere specifiedMonique MilfordStart: 37-21-7128Vzgsckjktpt observation [Identifier] in Cervix by Cyto Valente Calderon MD Work Phone: Start: 28-95-2532XwotksxrqubdsymoqihuPYLEMOF MAHAJAN Start: 03-61-7307HTUZQSIEC REPORTDALUIS RADHAStart: 80-39-6011ZLRTHOZCL REPORTHpf ScanningStart: 64-98-1100Ekq brain brain stem w/o w/contrast material SPIKE RADHAStart: 56-77-0756Ozhsetvdsmdvqoqarvde w/rec awake&drowsyDADANVILLE STATE [facility] RADHAStart: 52-99-7860Jfj brain brain stem w/o w/contrast materialDaluis Rdaha Work Phone: Start: 46-74-6059Nohlwoxzxnmfufgmkrdt w/rec awake&drowsyDaluis Radha Work Phone: Start: 78-09-1189Pspco of lactateMICHELE RALOFSKY Start: 09-66-2693Vahut of prolactinMICHELE RALOFSKYStart: 59-98-9929Dd head/brain w/o contrast materialMICHELE RALOFSKYStart: 87-11-9707Ewsnwjdiag microscopic onlyMICHELE RALOFSKYStart: 34-17-0175Zvray dip stick/tablet rgnt auto w/o microscopyMICHELE RALOFSKYStart: 79-10-8481Vvpft count complete auto&auto difrntl wbcMICHELE RALOFSKYStart: 29-50-1242Wpcpvizaoqxvg metabolic panelMICHELE RALOFSKYStart: 97-24-5775Xqjazwxhvomm chorionic qualitativeMICHELE RALOFSKYStart: 94-19-0602TTAQ NPO, NOWMICHELE RALOFSKYStart: 07-36-3055PEWAAAY PRECAUTIONSMICHELE RALOFSKYStart: 94-89-8795NQJRGR LOCK IVMICHELE RALOFSKYStart: 68-32-2436Rqhmp of lactateMichael S [place] Work Phone: Start: 13-90-8956Mrvebwprte microscopic onlyMichael S [place] Work Phone: Start: 08-20-2322Bcooi dip stick/tablet rgnt auto w/o microscopyMichael S [place] Work Phone: Start: 86-42-7646Udktn count complete auto&auto difrntl wbcMichael S [place] Work Phone: Start: 34-16-9590Lmezrueuueppv metabolic panelMichael S [place] Work Phone: Start: 19-68-5705Hywvtdpvjirf chorionic qualitative Tu S [place] Work Phone: History of No history of surgeryMonique ChapitoNo history of surgeryMonique A Uriarte Work Phone: Plan of Treatment DateCare ActivityDetailAuthorStart: 58-81-0736Twbxcn Vaccines (1 of 2)Zoster Vaccines (1 of 2)[facility]: 40-87-5059JMjN/Tdap/Td Vaccines (9 - Td or Tdap)DTaP/Tdap/Td Vaccines (9 - Td or Tdap)[facility]: 57-19-5240Iuhlu panelLipid PanelUnOhioHealth Mansfield Hospital: 17-62-5955Evcbofolm for malignant neoplasm of cervixNOMS HealthcareStart: 66-44-2269WKmZ/Tdap/Td Vaccines (8 - Td or Tdap) DTaP/Tdap/Td Vaccines (8 - Td or Tdap)[facility]St[facility]: 80-56-7734Lciudcckc for malignant neoplasm of cervixUnOhioHealth Mansfield Hospital: 14-10-2769Qhronoymg for malignant neoplasm of cervixNOMS HealthcareStart: 05-29-2025 End: 27-57-0256Xpchpap encounter procedureNOMS Giselle OBGYNComment on above: ArrivedStart: 05-07-2025 End: 57-87-8524Obuirrq encounter dodvvztoe50/20/2025 2:00 PM EDT Office Visit [address] [place] [phone] [place] [address] [facility] [address] [place] [address] [facility] HospitalStart: 04-30-2025 End: 49-74-3814RMO panel - Blood by Automated countCBC Lab Routine Diabetes mellitus screening Expected: 04/30/2025 (Approximate), Expires: 04/30/2026[facility] Work Phone: comment on above:Expected: 04/30/2025 (Approximate), Expires: 04/30/2026Start: 04-30-2025 End: 43-72-9898Anmqchprfis of glucose 1 hour after glucose challenge for glucose tolerance testGlucose tolerance, 1 hour Lab Routine Diabetes mellitus screening Expected: 04/30/2025 (Approximate), Expires: 04/30/2026NONC HealthcareComment on above:Expected: 04/30/2025 (Approximate), Expires: 04/30/2026Start: 04-30-2025 End: 26-25-6983Hbvuiuw encounter ofimlihry65/13/2025 9:50 AM EDT Routine [facility] Giselle LAYTON [address] [place], [id number] Roula Grullon PA [address] [place] [address] [facility] Giselle OBGYNStart: 04-04-2025 End: 27-59-0630Enppreu encounter /17/2025 3:10 PM EDT Routine [facility] G[facility]elle WOODGYN [address] [place], [id number] Willis Chen DO [address] [place] [address] NOMShaina [place] OBGYNStart: 65-55-5593DBPBQ- 19 Vaccine ( season)COVID-19 Vaccine ( season)NOMS HealthcareStart: 16-44-1244Kusphqppa vaccinationInfluenza Vaccine (#1)[facility] HealthcareStart: 03-14-2025 End: 12-88-7910Hshexuzkburx / ancillary services ivnljvcdek71/27/2025 3:00 PM EDT Ancillary Procedure [facility] [address] [place] [address] VUBJ Giselle OBGYNStart: 03-07-2025 End: 52-64-1957Szzawdt encounter procedureNOMS [place] OBGYNComment on above: ArrivedStart: 03-07-2025 End: 77-39-2787Ozbjf fetoprotein, maternalAlpha fetoprotein, maternal Lab Routine Second trimester ([facility]) 16 weeks gestation of ([facility]) Expected: 03/07/2025 (Approximate), Expires: 09/07/2025[facility] Comment on above:Expected: 03/07/2025 (Approximate), Expires: 09/07/2025Start: 03-07-2025 End: 76-79-4337TR for pregnancyUS OB 14+ weeks anatomy scan Imaging Routine Screening, , for anatomic survey ([facility]) Expected: 03/07/2025, Expires: 06/07/2025[facility] HealthcareComment on above:Expected: 03/07/2025, Expires: 06/07/2025Start: 02-21-2025 End: 96-69-1439Iyvetbztnorp / ancillary services ektyxdfzpi90/06/2025 3:00 PM EDT Ancillary Procedure [facility] [place] [facility] [address] [place] [address] IDWO Giselle OBGYNStart: 02-12-2025 End: 21-56-0591Fsxajni encounter ajlkfooju70/28/2025 2:20 PM EDT Office Visit [facility] [address] [phone] [place] [address] [place] [address] [facility] CareStart: 02-07-2025 End: 62-64-8308Dfkidye encounter procedureNONATIVIDAD [facility] OBComment on above:Arrived Start: 02-07-2025 End: 64-49-0567XC for pregnancyUS OB less than 14 weeks early Imaging Routine Missed menses Subchorionic hematoma in second trimester, single or unspecified fetus ([facility]) Expected: 02/07/2025, Expires: 05/10/2025[facility] Work Phone: comment on above:Expected: 02/07/2025, Expires: 05/10/2025Start: 02-01-2025 End: 35-60-5083Vubekqk encounter /17/2025 9:20 AM EDT Office Visit [facility] OB [address] [place] [address] Roula Grullon PA [address] [place] [address] ArrivedMISSION BERNAL CAMPUS OBComment on above:ArrivedStart: 01-12-2025 End: 38-27-1042GEN/RhABO/Rh Lab Routine Missed menses , unspecified gestational age ([facility]) Expected: 01/12/2025 (Approximate), Expires: 01/12/2026NONC HealthcareComment on above:Expected: 01/12/2025 (Approximate), Expires: 01/12/2026Start: 01-12-2025 End: 60-14-2733Xyxjo type and Indirect antibody screen panel - BloodType and screen Lab Routine Missed menses , unspecified gestational age ([facility]- [facility]) Expected: 01/12/2025 (Approximate), Expires: 01/12/2026[facility] Work Phone: comment on above:Expected: 01/12/2025 (Approximate), Expires: 01/12/2026Start: 01-12-2025 End: 70-26-6243Nqlmv of abuse panel - Urine by Screen methodRapid drug screen, urine Lab Routine , unspecified gestational age ([facility]) Encounter for supervision of normal first in first trimester ([facility]) Expected: 01/12/2025 (Approximate), Expires: 01/12/2026NOMS HealthcareComment on above: Expected: 01/12/2025 (Approximate), Expires: 01/12/2026Start: 05-03-2024 End: 66-57-4821gyodPZCeuxx [Mass/volume] in Serum or PlasmaLamotrigine level Lab Routine Seizure (Multi) Expected: 05/03/2024 (Approximate), Expires: 05/03/2025 [facility] Service Area Work Phone: comment on above:Expected: 05/03/2024 (Approximate), Expires: 05/03/2025Start: 20-58-6700NGTHO-19 Vaccine ( season)COVID- 19 Vaccine ( season)[facility]: 68-23-7841UTZDY-19 Vaccine ( season)COVID-19 Vaccine ( season)[facility]: 40-30-4855Claxgulgw vaccination Influenza Vaccine (#1)[facility]: 10-02-2023 Screening for malignant neoplasm of cervixHPV/CotestNOMS HealthcareStart: 31-20-4464GDMESFDI, Provider: Koffi Uriarte, Status: Pen, Time: 9:00 AM PHYSICAL, Provider: Koffi Uriarte, Status: Pen, Time: 9:00 NNDR-CCUN-[place]iv [place] Work Phone: Start: 08-02-2023 End: 83-44-8132Bolfhpk encounter xxsyervdw37/15/2024 9:00 AM EST Office Visit [facility] [address] [place] [phone] [place] [address] [place] [address] [facility] InstituteStart: 49-60-5683KMP TESTINGPAP TESTINGCleveland Clinic South Pointe Hospitaltart: 88-84-7518Yfleuuqfl for malignant neoplasm of cervixMemorial Hospital: 12-24-2022 VIRFUVHOME, Provider: Nedra Calderon, Status: Pen, Time: 10:00 AMVIRFUVHOME, Provider: Nedra Calderon, Status: Pen, Time: 10:00 NWAI-Bedfacxfi-Vlexoaso [employer] DO Work Phone: Start: 05-80-3369KROHQZXT, Provider: Koffi Uriarte, Status: Pen, Time: 9:50 AMPHYSICAL, Provider: Koffi Uriarte, Status: Pen, Time: 9:50 THGD-WMHO-[place]kg [place] Work Phone: Start: 03-24-2022 End: 25-34-7533Umiqcqywwyrfjzwfim.beta subunit [Units/volume] in Serum or Plasma HCG QUANTITATIVE Lab Routine Bleeding in early Expected: 03/24/2022, Expires: 05/24/2022[facility] Work Phone: Comment on above:Expected: 03/24/2022, Expires: 05/24/2022tart: 66-96-7218Mklelaogj vaccinationINFLUENZA (#1)[facility] Start: 92-72-8157Ugefjjk stimulating hormone measurementSeiling Regional Medical Center – SeilingStart: 00-30-4474WIYNZPVXFF, Provider: Nedra Calderon, Status: Pen, Time: 11:30 AMFUVGENERAL, Provider: Nedra Calderon, Status: Pen, Time: 11:30 ACGZ-Hiafyiejg-Emarwfrx SJW DO Work Phone: Start: 94-32-4461ETL, Provider: Koffi Uriarte, Status: Pen, Time: 1:00 PMFUV, Provider: Koffi Uriarte, Status: Pen, Time: 1:00 TQPF-PNSI-Xtxd [place] Work Phone: Start: 66-43-4114QWRGZ-19 VACCINE (3 - Booster for Pfizer series)COVID-19 VACCINE (3 - Booster for Pfizer series)[facility] Start: 15-45-1378FSHYJGUDNB, Provider: Nedra Calderon, Status: Pen, Time: 2:00 PMFUVGENERAL, Provider: Nedra Calderon, Status: Pen, Time: 2:00 DPQL-BFGV-Zpii [place] Work Phone: Start: 10-35-2648XXBMBQQSSY, Provider: Nedra Calderon, Status: Pen, Time: 11:00 AMFUVGENERAL, Provider: Nedra Calderon, Status: Pen, Time: 11:00 XNMU-LLGD-Rqfq [place] Work Phone: Start: 01-46-8279MSO, Provider: Koffi Uriarte, Status: Pen, Time: 3:40 PMFUV, Provider: Koffi Uriarte, Status: Pen, Time: 3:40 DFXE-OKWC-[place] Work Phone: Start: 53-31-0979BWA, Provider: Koffi Uriarte, Status: Pen, Time: 2:00 PMFUV, Provider: Koffi Uriarte, Status: Pen, Time: 2:00 FTEB-XRJA-Slxm [place] Work Phone: Start: 08-37-9108RSBZR-19 Vaccine (3 - Pfizer series) COVID-19 Vaccine (3 - Pfizer series)[facility]Start: 66-28-7038KDG Vaccines (1 - 3-dose SCDM series)HPV Vaccines (1 - 3-dose SCDM series)[facility] InstituteStart: 38-00-5116Vvojerriw vaccinationFlu vaccine (#1) [facility]: 62-98-6944KYgF/Tdap/Td vaccine (7 - Td)DTaP/Tdap/Td vaccine (7 - Td)[facility]: 27-48-9607Agwth microalbumin profile DTAP,TDAP,TD (7 - Td or Tdap)[facility] [facility] Hospitaltart: 10-78-4588Mihrmbfuc for malignant neoplasm of cervixUnSumma Health Wadsworth - Rittman Medical CenterStbrownville: 2012 Hepatitis B Vaccines (1 of 3 - 19+ 3-dose series)Hepatitis B Vaccines (1 of 3 - 19+ 3-dose series)[facility] InstituteStart: 19-84-3359TVUBHBJSS C SCREENINGHEPATITIS C SCREENINGCleveland Clinic South Pointe Hospitaltart: 21-15-7100Pkfyyxjkt C screeningHepatitis C ScreeningMemorial Hospital: 75-00-8277MYE SCREENINGHIV SCREENINGCleveland Clinic South Pointe Hospitaltart: 74-39-4903UVF screeningHIV screenAultman Alliance Community Hospital: 71-86-3024Pdjpmqt of varicella vaccinationVaricella Vaccines (1 of 2 - 13+ 2-dose series)[facility] InstituteStart: 45-75-9500Mptuqgaye vaccination Varicella Vaccines (1 of 2 - 13+ 2-dose series)[facility] Start: 22-66-4701Sqcen depression screening assessmentDEPRESSION SCREENING [place] [facility] Hospitaltart: 49-20-3849DQW vaccine (1 - 2-dose series)HPV vaccine (1 - 2-dose series)[facility]: 36-15-0556ZWpK/Tdap/Td Vaccines (1 - Tdap)DTaP/Tdap/Td Vaccines (1 - Tdap)[facility] InstituteStbrownville: 42-40-5312Sjeymsueb vaccinationVaricella Vaccines (1 of 2 - 2-dose childhood series)[facility]: 84-77-6588RHB Vaccines (1 of 1 - Standard series) MMR Vaccines (1 of 1 - Standard series)[facility] InstituteStart: 23-20-4447Uvyzpmgyt vaccine (1 of 2 - 2-dose childhood series)Varicella vaccine (1 of 2 - 2-dose childhood series)[facility]: 46-00-0344LBJ screeningHIV Screening [facility]: 50-02-2085Lyxoi panelLipid Panel [facility]: 38-73-1561Unnugh Adult PhysicalYearly Adult PhysicalUnSumma Health Wadsworth - Rittman Medical CenterBacteria identified in Urine by CultureUrine culture Microbiology Routine Missed menses Ordered: 01/12/2025[facility] HealthcareComment on above:Ordered: 01/12/2025BC W Auto Differential panel - BloodCBC and differential Lab Routine Missed menses , unspecified gestational age ([facility]) Ordered: 01/12/2025[facility] HealthcareComment on above: Ordered: 01/12/2025HLAMYDIA TRACHOMATIS (GENITO/STI)CHLAMYDIA TRACHOMATIS (GENITO/STI) Lab Routine STD exposure Ordered: 03/07/2025[facility] HealthcareComment on above:Ordered: 03/07/2025 End: 74-30-9935VM Head WO ContrastCT Head WO Contrast Imaging STAT Once for 1 Occurrences starting 04/18/2020 until 04/18/2020[facility], KYComment on above:Once for 1 Occurrences starting 04/18/2020 until 04/18/2020CT Head WO ContrastCT Head WO Contrast Imaging STAT 04/18/2020 11:15 PM [facility]DSamaritan [facility], KYCytology Cervical or vaginal smear or scraping studyPap Smear Pathology and Cytology Routine Well woman exam with routine gynecological exam Ordered: [facility] HealthcareComment on above:Ordered: 03/07/2025Hemoglobin A1c/Hemoglobin.total in BloodHemoglobin A1c Lab Routine Missed menses , unspecified gestational age ([facility]) Ordered: 01/12/2025[facility] HealthcareComment on above:Ordered: 01/12/2025Hepatitis B virus surface Ag [Presence] in Serum or Plasma by ImmunoassayHepatitis B surface antigen Lab Routine Missed menses , unspecified gestational age ([facility]) Ordered: 01/12/2025[facility] HealthcareComment on above:Ordered: 01/12/2025Hepatitis C virus Ab [Presence] in Serum or Plasma by ImmunoassayHepatitis C antibody Lab Routine Missed menses , unspecified gestational age ([facility]) Ordered: 01/12/2025[facility] HealthcareComment on above:Ordered: 01/12/2025HIV-1/HIV-2 antigen/antibody combination immunoassayHIV-1 and HIV-2 antibodies Lab Routine Missed menses , unspecified gestational age ([facility]) Ordered: 01/12/2025[facility] HealthcareComment on above:Ordered: 01/12/2025Human papilloma virus DNA [Presence] in Unspecified specimen by Probe with amplificationHPV DNA probe, amplified Microbiology Routine Well woman exam with routine gynecological exam Ordered: 03/07/2025[facility] HealthcareComment on above:Ordered: 03/07/2025Neisseria gonorrhoeae DNA [Presence] in Unspecified specimen by HUMERA with probe detection Neisseria gonorrhea DNA probe, direct Lab Routine STD exposure Ordered: 03/07/2025[facility] HealthcareComment on above:Ordered: 03/07/2025 End: 29-88-0121EvipnoivwIuzxcnlfr Lab STAT One Time for 1 Occurrences starting 04/18/2020 until 04/18/2020MerM[facility], KYComment on above:One Time for 1 Occurrences starting 04/18/2020 until 04/18/2020ProlactinProlactin Lab STAT 04/18/2020 11:17 PM [facility], KYReagin Ab [Presence] in Serum by RPR RPR Lab Routine Missed menses , unspecified gestational age ([facility]) Ordered: 01/12/2025[facility] HealthcareComment on above:Ordered: 01/12/2025Rubella antibody, IgGRubella antibody, IgG Lab Routine Missed menses , unspecified gestational age ([facility]) Ordered: 01/12/2025[facility] HealthcareComment on above:Ordered: 01/12/2025SURESWAB(R) ADVANCED VAGINITIS PLUS, TMASURESWAB(R) ADVANCED VAGINITIS PLUS, TMA Pathology and Cytology Routine Vaginal discharge Ordered: 03/07/2025[facility] Healthcare Work Phone: comment on above:Ordered: 03/07/20257512FV-NTHR-[place] Work Phone: [facility] ClinicNEGATED: Highlighted row has been ruled out!Planned Goals not kvgocvwupvFY-QLQV-Ziqp [place] Work Phone: Immunizations Immunization DateImmunizationNotesCare VjrnuqdePebdynfg53-35-5422gaubeuobb B vaccine, adult dosageKoffi Uriarte MD Work Phone: [facility] Work Phone: [phone]c toxoid, reduced diphtheria toxoid, and acellular pertussis vaccine, adsorbedKoffi Uriarte MD Work Phone: [facility] Work Phone: [phone], injectable, quadrivalent, preservative freeMonique Chapito REINOSO Work Phone: [facility]10-05-2023influenza virus vaccine, unspecified formulationNedra Calderon MD Work Phone: [facility] Work Phone: [phone], injectable, quadrivalent, preservative freeMonique A Chapito Work Phone: mp-WSPCEndoShape Work Phone: [phone], injectable, quadrivalent, preservative freeMonique A Uriarte Work Phone: mp-WSPCEndoShape Work Phone: [phone]-NloYFmib COVID-19 Vacc 30 MCG/0.3ML Intramuscular SuspensionMonique A Chapito Work Phone: [email or web address] Work Phone: [phone]-UikPZiim COVID-19 Vacc 30 MCG/0.3ML Intramuscular SuspensionMonique A Chapito Work Phone: mp-WSPCKG FundingMilford Work Phone: [phone], injectable, Madin [place] Canine Kidney, preservative free, quadrivalentMonique A Chapito Work Phone: mp-WSPCEnd[facility]Shape Work Phone: [phone], injectable, quadrivalent, contains preservativeMonique A Chapito Work Phone: mp-[facility]SPCE[facility] Work Phone: [phone] toxoid, reduced diphtheria toxoid, and acellular pertussis vaccine, adsorbedMonique A Uriarte Work Phone: mp-WSPCmetraTecMilford Work Phone: [phone]e, injectable, quadrivalent, preservative freeMissouri Rehabilitation Center Alison ClementeUriarte Work Phone: mp-WSPCmetraTecMilford Work Phone: [phone]hrk polysaccharide vaccine, 23 valentMonfirsthealth montgomery memorial hospital A Uriarte Work Phone: mp-WSPCM2Z NetworksMilford Work Phone: [phone] skin test; purified protein derivative solution, intradermalKaleida Health, [place] 10-00-2302nfsdcsfbuj skin test; purified protein derivative solution, intradermalKaleida Health, IC42-55-6552wilfkdq toxoid, reduced diphtheria toxoid, and acellular pertussis vaccine, adsorbedMercy Health Kings Mills Hospital08-10-2007meningococcal polysaccharide (groups A, C, Y and W-135) diphtheria toxoid conjugate vaccine (MCV4P)[facility], VL40-53-1880Hzvylayqsxwxf, MCV4, unspecified conjugate formulation(groups A, C, Y and W-135)[facility] 79-15-1374mrqtandgpc, tetanus toxoids and acellular pertussis vaccineMercy Health Kings Mills Hospital08-25-1999diphtheria, tetanus toxoids and acellular pertussis vaccine, unspecified formulationNovant Health [facility] Uriarte Work Phone: mp-WSPCmetraTecMilford Work Phone: [phone]ni influenzae type b vaccine, HbOC conjugateMercy Health Kings Mills Hospital08-25-1999measles, mumps and rubella virus vaccineMercy Health Kings Mills Hospital08-25-1999poliovirus vaccine, inactivatedKaleida Health, WH00-20-9750rbgehicbc poliovirus vaccine, live, oralKaleida Health, RX10-70-9146uyxavubitz, tetanus toxoids and acellular pertussis vaccineMercy Health Kings Mills Hospital06-22-1995diphtheria, tetanus toxoids and acellular pertussis vaccine, unspecified formulationMissouri Rehabilitation Center A Chapito Work Phone: mp-[facility]SPC-[place] Work Phone: [phone] influenzae type b vaccine, conjugate unspecified formulationKaleida Health, [place] 68-21-4787uuwgtystamz influenzae type b vaccine, PRP-OMP conjugateMiss[facility] Center A Uriarte Work Phone: mp-[facility]SP[facility] Work Phone: [phone], unspecifiedKaleida Health, EB29-86-2548znoqjdb, mumps and rubella virus vaccineMer[facility] Health [facility] Hospital04-06-1995poliovirus vaccine, inactivatedMercy Health Kings Mills Hospital12-01-1994hepatitis B vaccine, pediatric or pediatric/adolescent dosageMissouri Rehabilitation Center A Uriarte Work Phone: cReg[facility] Hospital Cleveland EastNghame62-35-5351mwbnxmvoh B vaccine, unspecified formulationKaleida Health, GP68-92-8149 diphtheria, tetanus toxoids and acellular pertussis vaccineACMH Hospital, OX24-07-3661rnlxdzyweo, tetanus toxoids and pertussis vaccine [facility]09-29-1994haemophilus influenzae type b vaccine, conjugate unspecified formulationKaleida Health, SC51-54-9475objodfaxsuz influenzae type b vaccine, HbOC conjugateSara Glassilvia PA-C Work Phone: [facility] HospitalIqjnjy05-58-0434hebjvirhnlr influenzae type b vaccine, PRP-OMP conjugateMiss[facility] Rehabilitation Center A Uriarte Work Phone: mp-WSPCM2Z NetworksMil[place] Work Phone: [phone], unspecifiedK[facility], BX68-93-5500mkqustfnyo vaccine, inactivatedMicWayne Hospital09-29-1994trivalent poliovirus vaccine, live, oralKaleida Health, SW66-50-1719rxphzqbqcy, tetanus toxoids and acellular pertussis vaccineK[facility]ida [facility], SU73-69-4885 diphtheria, tetanus toxoids and pertussis vaccineMercy Health Kings Mills Hospital07-28-1994haemophilus influenzae type b vaccine, conjugate unspecified formulationK[facility]ida [facility], TZ48-98-2903rnnvhwrcjtx influenzae type b vaccine, HbOC conjugateSara Glasenapp PA-C Work Phone: [facility] HospitalGuqjcf49-44-8227ytekctavvri influenzae type b vaccine, PRP-OMP conjugateMonique A Uriarte Work Phone: [email or web address] Work Phone: [phone], unspecifiedK[facility]ida [facility], CN30-86-9828qzrmglypfr vaccine, inactivatedBrecksville [facility]07-28-1994trivalent poliovirus vaccine, live, oralK[facility], DN68-64-2583jgnnmtdyy B vaccine, pediatric or pediatric/adolescent dosageMonique A Uriarte Work Phone: cRegency Hospital Cleveland EastMqqbrr53-26-7656qgooibbhf B vaccine, unspecified formulationK[facility], AF75-05-1410 diphtheria, tetanus toxoids and acellular pertussis vaccineButler Memorial Hospital WL71-57-6504fblxlhbvzz, tetanus toxoids and pertussis vaccine [facility]05-19-1994haemophilus influenzae type b vaccine, conjugate unspecified formulationKaleida Health, VT33-47-2970khtvbggedpx influenzae type b vaccine, HbOC conjugateSara Glasenapp PA-C Work Phone: [facility] HospitalMfeobs79-74-3683bdeqjgyzaog influenzae type b vaccine, PRP-OMP conjugateMonique A Uriarte Work Phone: [email or web address] Work Phone: [phone] B vaccine, pediatric or pediatric/adolescent dosageMonminesh Uriarte Work Phone: cRegency Hospital Cleveland EastSwdkzd91-84-6734okqchrqpk B vaccine, unspecified formulationK[facility]ida [facility], AW49-78-5372Ffj, unspecifiedK[facility], CD49-23-4036awvemajzyu vaccine, inactivatedMicFort Hamilton Hospital05-19-1994trivalent poliovirus vaccine, live, oralMicRegional Hospital of [place], [place] Payers DatePayer CategoryPayerPolicy [id number] [facility] [id number] 21-73-1845Pewy-zvs60-74-9145Lyruksu Care (Private) [id number]1236.12046-96-1471Mscqqmy Health Hiiyyxsut8095373204-21-7966Wgkfmvs Health Insurance [id number]07.90033-49-9101Yvaceju50-67-1999 UnknownMMO MMO SUPERMED PLUS [id number] 2020-Present [phone] [address] [place] [address] [id number] 1.2.840.185786.1.13.159.2.7.3.842891.40899-83-0993Beufgdg915305344428-21-9661 [id number] 2.16.840.1.489753.3.57[id number] 2.16.840.1.663897.3.57[id number] 2..840.1.027366.3.579.2.21451-36-2613Cgqkiaj7418255 2.840.1.243386.3.579.[id number] 2.840.1.755578.3.579.[id number] 2.840.1.230726.3.579.2.[id number] 2.840.1.562495.3.579.[id number] 2.840.1.451656.3.579.2.[id number] 2.840.1.387822.3.579.2.72[id number] 2.840.1.415715.3.579.2.995677-65-6663Peqissh72007341 2.840.1.379789.3.579.2.150769-47-0612Xcxsrvb95247044 2.840.1.335054.3.579.2.743858-53-3088Teueskp96525454 2.840.1.267764.3.579.[id number] 2.840.1.509116.3.579.2.356087-83-7295Ksfuqmz78070558 2.16.840.1.927962.3.579.2.187189-21-2540Btcvzwb48304080 2.16.840.1.151838.3.579.2.35[id number] 2.16.840.1.501889.3.579.2.992162-75-9373Cemuyrs43514940 2.16.840.1.225513.3.579.[id number] 2.16.840.1.991964.3.579.2.5[id number] 2.16.840.1.469139.3.579.2.815006-71-2357Alyiufr360095435152 1.2.840.597337.1.13.239.2.7.3.974856.954Kj[id number] 2.16.840.1.050573.3.579.2.390DlqyjghR4689107670 3r06jq8g-1p9c-30px-37f7-p94z20zebb56 Social History DateTypeDetailFacilityStart: 04-18-2020 End: 68-82-3039Icmcksa smoking status NHISNever smokerCleveland Clinic South Pointe Hospitaltart: 04-18-2020 End: 27-57-5515Ywvsesw use and exposureNever usedAultman Alliance Community Hospital: 04-18-2020 End: 73-79-4943Jffiiha intakeCurrent drinker of alcohol (finding)[facility]: 35-74-6632Ltxauhw SDOH Ptlvlkdcd4MngkoAultman Alliance Community Hospital: 79-08-7793Vjmgkva SDOH Food Ajxgs6OmxhsAultman Alliance Community Hospital: 62-56-7612Utuwafr SDOH Transport Zzq8XnrnsAultman Alliance Community Hospital: 96-84-0847Swnsjnq Comment occasionallyAultman Alliance Community Hospital: 58-13-9233Ndq Assigned At BirthNot on [place], [place]: 04-20-2023 End: 70-58-8091Dzimbyfl to SARS-CoV-2 (event)Not [facility] Centerart: 05-03-2024 End: 47-14-9541Dkwrf smokerNever ikrweoYR-QXHP-[place] Work Phone: Start: 95-16-9010Rctfnaq smoking statusNeverHolmes County Joel Pomerene Memorial Hospitaltart: 05-03-2024 End: 22-26-4935Noj Assigned At [facility] Hospitaltart: 76-27-1331Gby Assigned At [facility] Hospitaltart: 01-34-1827Tqalgmasw beverage intakeEx-drinker (finding)[facility] Work Phone: How often to you have a drink containing alcohol?Never [facility] Work Phone: Start: 04-23-2024 End: 38-96-9452Dyzujjvw to SARS-CoV-2 (event)YesSheltering Arms HospitalStart: 32-65-1527Kojckrr CommentSociallySheltering Arms Hospital Work Phone: Tobacco smoking status NHISTobacco smoking consumption unknownNONC HealthcareStart: 45-40-9234ThzsezidcDRSY HealthcareStart: 08-16-5619Plnkyv identityIdentifies as female gender (finding)[facility] Start: 88-27-1176Vphyku orientationHeterosexual (finding)[facility] HealthcareNEGATED: Highlighted row--SJ-DMOT-PdeuSince1910.com Work Phone: NEGATED: Highlighted rowStart: NINFHistory of tobacco usePassive smokerSheltering Arms Hospital Work Phone: Goals DatePatient GoalDesired Activity/StatePersonal health goal Functional Status DateAssessmentResultFacilityNEGATED: Highlighted rowFunctional performance Functional status health issues are not documented DgppxzzPT-YWXL-[place] Work Phone: Mental Status DateAssessmentResultFacilityNEGATED: Highlighted rowCognitive function [Interpretation]Cognitive status health issues are not documented Disease AD-QTCC-[place]n [place] Work Phone: Clinical Notes 08-09-2017 to 04-30-2025 Note Date & JpynAfdoIykyqxoy64-20-0726 History of Present illness Narrative* CHRISTIANA Mills [...] [facility] 07/09/2021 Breech presentation, no version ([facility] 07/29/2023 Resolved Ambulatory Problems [...] ASSESSMENT & PLAN ICD-10-CM 1. Second trimester ([facility]) Z34.92 2. 24 weeks gestation of ([facility]) Z3A.24 3. Hypertension, unspecified type I10 [...] given 1-hr glucose order to obtain at [facility]. No orders of the defined types were placed in this encounter. Follow Up: Patient is to return to office in 4 weeks for routine OB appointment. Documented by Kim Sousa MA on behalf of: CHRISTIANA Mills documented in this encounterThe Rehabilitation InstituteHcejbemckt31-39-3017 History of Present illness Narrative* Willis Chen [...] [facility] 07/09/2021 Breech presentation, no version ([facility]) 07/29/2023 Resolved Ambulatory Problems Diagnosis Date [...] nursing note reviewed. Exam conducted with a test analyst present. Vitals: Estimated body mass index is 27.04 kg/m as calculated from the following: Height as of 11/16/22: 5' 9 . Weight as of this encounter: 183 lb 1.9 oz. BP: 110/70 Patient's last menstrual period was 11/13/2024. Assessment/Plan Encounter Diagnosis: ICD-10-CM 1. 20 weeks gestation of ([facility]) Z3A.20 POCT urinalysis dipstick manually resulted 2. Second trimester ([facility]) Z34.92 POCT urinalysis dipstick manually resulted [...] of: Willis Chen DO documented in this encounterThe Rehabilitation InstituteFklfzhpdsp85-13-9069 History of Present illness Narrative* CHRISTIANA Mills [...] [facility] 07/09/2021 Breech presentation, no version ([facility]) 07/29/2023 Resolved Ambulatory Problems Diagnosis Date [...] HPV DNA probe, amplified 2. Second trimester ([facility]) Z34.92 POCT urinalysis dipstick manually resulted Alpha fetoprotein, maternal Alpha fetoprotein, maternal 3. 16 weeks gestation of ([facility]) Z3A.16 POCT urinalysis dipstick manually resulted Alpha fetoprotein, maternal Alpha fetoprotein, maternal 4. Vaginal discharge N89.8 SURESWAB(R) ADVANCED VAGINITIS PLUS, TMA 5. STD exposure Z20.2 CHLAMYDIA TRACHOMATIS (GENITO/STI) Neisseria gonorrhea DNA probe, direct 6. Screening, , for anatomic survey ([facility]) Z36.89 OB 14+ weeks anatomy scan [...] behalf of: CHRISTIANA Mills documented in this encounterThe Rehabilitation InstituteRjtnenbsnz36-48-0602 History of Present illness Narrative* Cyndi Andrade, SALES FORCE ADMINISTRATOR - 02/07/2025 3:10 PM EDT Reason for [...] [facility] 07/09/2021 Breech presentation, no version ([facility]) 07/29/2023 Resolved Ambulatory Problems [...] nursing note reviewed. Exam conducted with a test analyst present. Vitals: Estimated body mass index is 26.11 kg/m as calculated from the following: Height as of 11/16/22: 5' 9 . Weight as of this encounter: 176 lb 12.8 oz. BP: 114/74 Patient's last menstrual period was 11/13/2024. ASSESSMENT & PLAN ICD-10-CM 1. First trimester ([facility]) Z34.91 POCT urinalysis dipstick manually resulted 2. 12 weeks gestation of ([facility]) Z3A.12 POCT urinalysis dipstick manually resulted [...] or undercooked meat, and [facility]. Patient has been consulted regarding any further do's and don'tsof . Patient voiced understanding and all questions and concerns were answered. Orders Placed This Encounter Procedures POCT urinalysis dipstick manually resulted Follow Up: Patient is to return in 4 weeks for routine OB appointment. Documented by Cyndi Andrade LPN on behalf of: Willis Chen DO documented in this encounterThe Rehabilitation InstituteCchmjuwskw46-78-1894 History of Present illness Narrative* CHRISTIANA Mills [...] [facility]) 07/09/2021 Breech presentation, no version ([facility]) 07/29/2023 Resolved Ambulatory Problems [...] ASSESSMENT & PLAN ICD-10-CM 1. First trimester ([facility]) Z34.91 2. 11 weeks gestation of ([facility]) Z3A.11 Patient is presents for er [...] behalf of: CHRISTIANA Mills documented in this encounterThe Rehabilitation InstituteFwcuubgjmb73-92-9655 History of Present illness Narrative* Damaris Agosto [...] oz F CS-LTranv JACKSON Complications: Breech presentation ([facility]) 1 AB Obstetric Comments Last pap smear date 2 years ago Current Medications: has a current medication list which includes the following prescription(s): labetalol, lamotrigine,and mv-min-fe fum-fa-dha. Medical History: Active Ambulatory Problems Diagnosis Date Noted Hypertension 01/14/2023 Seizure ([facility]) 07/09/2021 Breech presentation, no version ([facility]) 07/29/2023 Resolved Ambulatory Problems Diagnosis Date [...] dipstick manually resulted , unspecified gestational age ([facility]) - Type and screen; Future - ABO/Rh; Future - CBC and differential - Hemoglobin A1c - RPR - Rubella antibody, IgG - Hepatitis B surface antigen - Hepatitis C antibody - HIV-1 and HIV-2 antibodies - Rapid drug screen, urine; Future Encounter for supervision of normal first in first trimester ([facility]) - Rapid drug screen, urine; Future [...] or undercooked meat, and [facility]. Patient has also been advised to not [...] by: Damaris Agosto MA documented in this encounterThe Rehabilitation InstituteSqvppmreov66-02-5257 Evaluation + Plan note* Assessment & Plan Note - Koffi rUiarte [...] Primary Care - PCP - Established; Future [facility] Work Phone: 1(356) 626-762102-25-2025 Evaluation + Plan note* Assessment & Plan Note - Koffi Uriarte MD - 09/12/2024 12:40 PM ESTAssociated Problem(s): Seizure (Multi) Good control. Follow up with neuro. Continue meds [facility] Work Phone: 1([phone]) 471-339002-25-2025 Evaluation + Plan note* Assessment & Plan Note - Koffi Uriarte MD - 09/12/2024 12:40 PM ESTAssociated Problem(s): Vitamin B12 deficiency [facility] Work Phone: 1([phone]) 653-715802-25-2025 Evaluation + Plan note* Assessment & Plan Note - Koffi Uriarte MD - 09/12/2024 12:40 PM ESTAssociated Problem(s): Fatigue We talked about healthy habits and sleep hygiene Orders: CBC; Future TSH with reflex to Free T4 if abnormal; Future Vitamin B12; Future [facility] Work Phone: 1([phone]) 435-323302-25-2025 History of Present illness Narrative* Koffi Uriarte MD - 09/12/2024 12:40 PM EST Subjective Princess Guerrero is a 28 y.o. 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 Here for a [...] mg daily or vitamins. documented in this [facility] Work Phone: 1(782) 364-768402-25-2025 Instructions* Patient Instructions* Koffi Uriarte MD - 09/12/2024 12:40 PM EST Please start back on folic acid 1 mg daily or vitamins. documented in this [facility] Work Phone: 1([phone]) 217-437702-25-2025 Miscellaneous Notes* Assessment & Plan Note - [...] Future Vitamin B12; Future documented in this [facility] Work Phone: 1(980) 878-282210-16-2024 History of Present illness Narrative* Nedra Calderon MD - 05/03/2024 9:30 AM EDT Images from the original note were not included. Neurological [facility] Referring: No ref. provider found PCP: [...] further seizures. She is now working for [employer] 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 Patient Active Problem List Diagnosis Anxiety [...] in upper and lower extremities. Coordination Right: Tisslh-mh-pvau normal.Left: Qobytg-tn-scku normal. Physical Exam Eyes: Extraocular Movements: Extraocular [...] file for this visit. 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 Patient Active Problem List Diagnosis Abnormal weight [...] 5/5 throughout all four extremities. Coordination Right: Arpsjv-rf-viqa normal.Left: Mdkuia-gc-qtmy normal. Physical Exam Eyes: Extraocular Movements: Extraocular [...] Follow-up in 1 year documented in this [facility] Work Phone: 1(438) 266-499305-10-2023 NoteEXAMINATION: US PELVIS TRANSVAG HISTORY: Reproductive care [...] authenticated by: HAYLIE HOUSER Date: 2022-11-25 17:20[facility] NorthVnamqxlj03-85-8811 NoteHNO ID: [id number] Author: Brendan Blankenship PA-C Service: ? 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 I, Brendan Blankenship, have reviewed this information as documented for accuracy and performed all elements of history taking, and edited the record as necessary. 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 documented in [facility] encounterBl[facility]09-[facility]-2022 Miscellaneous Notes* Telephone Encounter - Mary Onofre RN - 03/19/2022 8:50 AM EDT LMP 02/11, +hpt. Assisted w initial OBV. Advised to take vitamin w folic acid. First trimester precautions provided. handbook sent in . documented in this encounterBluffton Hospital07-19-2022 Miscellaneous Notes* Telephone Encounter - Brendan [...] this medication MICHELLE: No documented in this encounterBluffton Hospital02-22-2022 NoteHNO ID: [id number] Author: Brendan Blankenship PA-C Service: ? 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 Portions of this record were documented by the Renewals Specialist. I, Brendan Blankenship, have reviewed this information as documented for accuracy and performed all elements of history taking, and edited the record as necessary. 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 [...] testing/treatment Medical Decision Making Level: 3 - [facility]12-17-2021 Note HNO ID: [id number] Author: 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 APRN.KILN FIRER Service: ? Author Type: Nurse Practitioner Type: [...] Ectopic0 Multiple0 Live Births0 Comment: Menarche 10 Hospital Fellow History LMP: 06/07/2021 (Exact Date), Having periods Age at Menarche: Age at First : Age at Menopause: Hospital Fellow History Comments: Sexual Activity: Yes; Male; same [...] external genitalia normal, normal Bartholin's glands, urethra, Lake[place]'s glands, no vulvar lesions, no cervical lesions, [...] type of detergents for washing undergarments, wiping ovnxr-gx-hopk, sleep in loose shorts without underwear, shower immediately after intercourse/exercise, make sure perineum is gently blotted dry before dressing. Avoid scratching, scented pads/tampons/toilet papers, cranberry juice, bubble baths, and intercourse until symptoms are relieved. NO douching. If you shave, use a new razor at least twice monthly. 5) Follow up one year or sooner as needed 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 APRN.[facility]01-22-2018 History of Past illness Narrative* ProblemNoted DateResolved DateNO SHOW documented as of this encounter (statuses as of 02/03/2022) [facility]01-[facility] History of Past illness Narrative* ProblemNoted Date Resolved DateNO SHOWdocumented as of this encounter (statuses as of 03/19/2022) [facility]01-[facility] History of Past illness Narrative* ProblemNoted Date Resolved DateNO SHOWdocumented as of this encounter (statuses as of 03/24/2022) [facility] HospitalEvaluation + Plan note No data available for this section [facility]* Diagnosis Acute vaginitis- Primary Vaginitis and vulvovaginitis, unspecified [facility]* Diagnosis Bleeding in early - Primary Unspecified hemorrhage in early , unspecified as to episode of care [facility]* Diagnosis Seizure (CMS/HCC)- Primary Other convulsions documented in this encounter [facility] Work Phone: Evaluation noteNo assessment information available [facility] Work Phone: Evaluation note* Diagnosis Seizure (Multi)- Primary Other convulsions documented in this encounter [facility] Work Phone: Evaluation note* Diagnosis Benign essential hypertension- Primary Essential hypertension, benign Seizure (Multi) Other convulsions Vitamin B12 deficiency Other B-complex deficiencies Fatigue, unspecified type Well adult health check Unspecified general medical examination Vitamin D deficiency documented in this encounter [facility] Work Phone: Evaluation note* Diagnosis Missed menses Missed menses , unspecified gestational age ([facility]) Encounter for supervision of normal first in first trimester ([facility]) Nausea and vomiting in ([facility]) Unspecified vomiting of , unspecified as to episode of care Seizure (HCC) Other convulsions Chronic hypertension [facility] in [facility] encounter [facility]* Diagnosis Nausea and vomiting, [...] STD exposure Screening, , for anatomic survey ([facility]) Encounter for anatomic survey documented in this encounter [facility]* Diagnosis 20 weeks gestation of ([facility]) Second trimester ([facility]-HCC) state, incidental documented in this encounter [facility]* Diagnosis Second trimester ([facility]-H[facility]) state, incidental 24 weeks gestation of ([facility]) Hypertension, unspecified type Seizure (HCC) Other convulsions [...] up with her boyfriend. * Working in [employer]. * BP is much improved on lisinopril. * Saw gyne for discharge. * was told she had BV and chlamydia. * took antibiotics, got better for a few weeks and now she is having discharge again and odor. no pelvic pain. [facility] Work Phone: History of Present illness Narrative* The patient states she has been doing well with her blood pressure control since the last visit. She has no comorbid illnesses. She has no significant interval events. * Symptoms: The patient is currently asymptomatic. * Less anxiety lately. Broke up with her boyfriend. * Working in [place] at [employer]. * BP is much improved on lisinopril. * Saw gyne for discharge. * was told she had BV and chlamydia. * took antibiotics, got better for a few weeks and now she is having discharge again and odor. no pelvic pain. [facility] Work Phone: Hospital Discharge instructions No data available for this section [facility] No data available for this section [facility] Summary Purpose Family History Mother Name [...] W WO CONTRAST Spike Garcia MD [address] [place] [address] Assessments Diagnosis Nonintractable generalized idiopathic epilepsy without status epilepticus (HCC) Diagnosis Seizure (HCC) Other convulsions Discharge Instructions * Attachments The following attachments cannot be sent through Care Everywhere. * Seizure (Ecuadorean) documented in this encounter Chief Complaint and Reason for Visit Chief Complaint Nausea, diarrhea Additional Source Comments INFORMATION SOURCE (unrecogn ized section and content) DATE CREATED AUTHOR 01/11/2018 [facility] DATE CREATED AUTHOR AUTHOR'S ORGANIZ ATION 04/19/2020 [facility] DATE CREATED AUTHOR AUTHOR'S ORGANIZ ATION 05/11/2020 [facility] DATE CREATED AUTHOR AUTHOR'S ORGANIZ ATION 12/29/2020 [facility] DATE CREATED AUTHOR AUTHOR'S ORGANIZ ATION 04/20/2022 [facility] DATE CREATED AUTHOR AUTHOR'S ORGANIZ ATION 08/11/2022 [employer] DATE CREATED AUTHOR AUTHOR'S ORGANIZ ATION 11/29/2022 [facility] DATE CREATED AUTHOR AUTHOR'S ORGANIZ ATION 12/27/2022 [facility] DATE CREATED AUTHOR AUTHOR'S ORGANIZ ATION 09/07/2023 [facility] DATE CREATED AUTHOR AUTHOR'S ORGANIZ ATION 12/16/2023 [facility] DATE CREATED AUTHOR AUTHOR'S ORGANIZ ATION 04/01/2024 [facility] DATE CREATED AUTHOR AUTHOR'S ORGANIZ ATION 04/02/2024 [facility] DATE CREATED AUTHOR AUTHOR'S ORGANIZ ATION 07/14/2024 [facility] DATE CREATED AUTHOR AUTHOR'S ORGANIZ ATION 09/15/2024 [facility] DATE CREATED AUTHOR AUTHOR'S ORGANIZ ATION 04/22/2025 [facility] DATE CREATED AUTHOR AUTHOR'S ORGANIZ ATION 05/30/2025 [facility] EPIC Reason for Visit (unrecogniz ed section and content) StatusReasonSpecialtyDiagnoses / ProceduresReferred By ContactReferred To ContactClosedEEG Diagnoses Generalized idiopathic epilepsy and epileptic syndromes, not intractable, without status epilepticus Procedures HC EEG 16+ CHANNEL TELEMTERY 24HR Spike Garcia MD [address] [facility] [address] [place] [address] [address] [place] [address] StatusReasonSpecialtyDiagnoses / ProceduresReferred By ContactReferred To ContactClosedRadiology Diagnoses Generalized idiopathic epilepsy and epileptic syndromes, not intractable, without status epilepticus Procedures HC MRI-BRAIN WO & W CONTRAST Spike Garcia MD [address] [facility] [address] [place] [address] [address] [place] [address] ReasonCommentsSeizuresSeizure like activityReasonCommentsAppointmentReason CommentsBleeding With PregnancyReasonCommentsSeizuresMedication udatesReason CommentsSeizuresReasonCommentsFollow-upFollow from vice president of recruiting appt for elevated BP ReasonCommentsAmenorrheaReasonCommentsRoutine VisitReasonComments Routine VisitWell Women VisitSTI Screening Source Comments (unrecognize d section and content) In the event this informatio n is protected by the Federal Confidentiality of Alcohol and Drug Abuse Patient Records regulations: The Federal rules restrict any use of the information to criminally investigate or prosecute any alcohol or drug abuse patient.[facility]In the event this information is protected by the Federal Confidentiality of Alcohol and Drug Abuse Patient Records regulations: The Federal rules restrict any use of the information to criminally investigate or prosecute any alcohol or drug abuse patient.[facility] HospitalIn the event this information is protected by the Federal Confidentiality of Alcohol and Drug Abuse Patient Records regulations: The Federal rules restrict any use of the information to criminally investigate or prosecute any alcohol or drug abuse patient.[facility] Care Teams (unrecognized sec tion and content) Team MemberRelationshipSpecialtyStart DateEnd Date Koffi Uriarte MD PCP - GeneralFamily Practice08/17/16Team MemberRelationshipSpecialtyStart DateEnd Date Koffi Uriarte MD PCP - GeneralFamily Practice08/17/16Team MemberRelationshipSpecialtyStart [place] [address] [place] [address] PCP - General08/14/20 [place] [address] [place] [address] PCP - [facility] PCP02/16/23 Team Status: Active Member Role Status Dates Norma Houser APRN Primary Care Provider Active Team Status: Inactive Member Role Status Dates Yusra Whitehead APRN Attending Provider Active Start: November 09, 2023 End: November 09, 2023[facility] Care ProviderActiveStart: November 09, 2023 End: November 09, 2023Team MemberRelationshipSpecialtyStart [place] [address] [place] [address] PCP - General08/14/20Team MemberRelationshipSpecialtyStart [place] [address] [place] [address] PCP - General08/14/20Team MemberRelationshipSpecialtyStart [place] [address] [place] [address] PCP - GeneralFamily Medicine01/14/23Team MemberRelationshipSpecialtyStart [place] [address] [place] [address] [facility]/14/23Team MemberRelationshipSpecialtyStart [place] [address] [place] [address] PCP - GeneralFamily Medicine01/14/23Team MemberRelationshipSpecialtyStart [place] [address] [address] PCP - GeneralFamily Medicine01/14/23Team MemberRelationshipSpecialtyStart [place] [address] [place] [address] PCP - GeneralFamily Medicine01/14/23Team MemberRelationshipSpecialtyStart [place] [address] [place] [address] PCP - GeneralFamily Medicine01/14/23Team MemberRelationshipSpecialtyStart [place] [address] [place] [address] PCP - GeneralFamily Medicine01/14/23Team MemberRelationshipSpecialtyStart [place] [address] [place] [address] PCP - GeneralFamily Medicine01/14/23Team MemberRelationshipSpecialtyStart [place] [address] [place] [address] PCP - GeneralFamily Medicine01/14/23Team MemberRelationshipSpecialtyStart [place] [address] [place] [address] PCP - GeneralFamily Medicine01/14/23Te MemberRelationshipSpecialtyStart [place] [address] [place] [address] PCP - [facility]01/14/23Te MemberRelationshipSpecialtyStart [place] [address] [place] [address] PCP - [facility]01/14/23Te MemberRelationshipSpecialtyStart [place] [address] [place] [address] PCP - [facility]01/14/23 Goals (unrecognized section and content) Goals [...] BE BASED ON THE PRIMARY CLINICAL RECORDS. [facility] [employer] [facility]. provides no warranty or guarantee of the accuracy or completeness of information in this document.
--- NOTE | 2025-07-18 18:49 | US_ITS ---
[place] [id number] Patient Name: PRINCESS HUNTER MRN: [id number] date: 1995 Sex: F Assigned Patient Location: US Current Patient Location: Accession/Order Number: [id number] Exam Date: 07/18/2025 18:53 Report Date: 07/18/2025 21:34 At the request of: LISA ZIMMERMAN DO Procedure: US OB BPP w non-stress US OB BPP w non-stress 07/18/2025 7:20 PM SIGNS AND SYMPTOMS: ^SGA P05.10 PROTOCOL: Transabdominal sonographic imaging of the gravid uterus COMPARISON: None FINDINGS: Estimated gestational age: 35 weeks 2 days Amniotic fluid index: 13.86 cm with the deepest vertical pocket measuring 5.68 cm. heart rate: 136 bpm. Biophysical profile: breathing movements: 2/2 Gross body movements: 2/2 tone: 2/2 Amniotic fluid volume: 2/2 US/US OB BPP w non-stress IMPRESSION: Biophysical profile score: 8/8 Impression dictated by: Olvin Tovar M.D. 07/18/2025 9:34 PM Dictation Location: [place] [address] Electronically authenticated by: [id number] Y Date: 07/18/2025 21:34
[2025-07-18 19:22] VITALS: BP 118/61; PULSE 74
== END 2025-07-18 19:45 | disposition home or self-care (01) ==
LOC: US 18:44 → FBC 18:48
PROVIDERS: PCP Family Medicine; Visit Provider Obstetrics & Gynecology
DX: O10.913 Unspecified pre-existing hypertension complicating pregnancy, third trimester (principal); Z3A.35 35 weeks gestation of pregnancy
CPT/HCPCS: 76818